=== PATIENT | female | born 1965 | race Caucasian/White ===

== ENCOUNTER 2017-01-24 08:40 | Day surgery (SDC) | payer BC ==
[~2017-01-24] VITALS: Ht 152.4 cm; Wt 50.0 kg
[~2017-01-24 08:40] MED LIST: BUPR150T47 PO; CITA40TA12 PO; COPP1TAB PO; CYAN3INJ IM; CYAN500T PO; DPH/ PO; ERGO1CAP35 PO; FRCT/ PO; LORA-741 PO; MAGN400T24 PO; OMEG10007 PO; POTA20TA16 PO; Premarin Cream PV; THIA100T11 PO; TRAM-10 PO; VITB2100 PO
[2017-01-24 09:18] VITALS: BP 92/60; PULSE 74; TEMP 36.7; O2SAT 97; Ht 152.4 cm; Wt 50.0 kg
[2017-01-24 10:30] VITALS: BP 90/58; PULSE 70; TEMP 37; O2SAT 96
[2017-01-24] MEDS ORDERED: ACETAMINOPHEN 500 MG TAB PO PRN (10:30)
--- NOTE | 2017-01-24 10:32 | Discharge Instructions ---
Discharge Instructions Procedure Procedure Date: Jan 24, 2017. Reason for visit: Abn Mri Of Brain W/Opening Pressure. Discharge Discharge Date: Jan 24, 2017. Discharge Diagnosis: headaches Instructions Activity Recommendations: 1 Day-May resume regular activity, 48 Hours of decreased exertion, 1 Day with no driving/machine use Return to School/Work: no limitations Recommended Home Diet: Resume Previous Diet Provider Instructions: Lumbar Puncture performed with Fluoroscopic guidance [L45 ] level with [ 22] needle. No complications. Allergies Coded Allergies: Aspirin (Verified Allergy, Unknown, No an allergy- cannot take post- bypass surgery, 01/16/17) Penicillins (Verified Allergy, Unknown, ? REACTION, 01/16/17) Ragweed (Verified Allergy, Unknown, swelling, 01/16/17) Sulfa Antibiotics (Verified Allergy, Unknown, Unknown reaction, 01/16/17) [place] Recommendations: Call your doctor if: * Temperature above 101 degrees * Pain not relieved by pain medicine ordered * There is increased drainage or redness from any incision * You have any unanswered questions or concerns. Your Doctors Instructions noted above were prepared by provider Cezar Beal. Patient Signature Section: Patient Instructions Signature Page Chandrika Hogue Patient (or Guardian) Signature/Date: I have read and understand the instructions given to me by my caregivers. Caregiver/RN/Doctor Signature/Date: The above-named patient and/or guardian has received patient instructions on this date. + Original Patient Signature Page (only) stays with chart. Please make copy for patient.
--- NOTE | 2017-01-24 10:39 | DIAGNOSTIC IMAGING REPORT ---
LUMBAR PUNCTURE DIAGNOSTIC CLINICAL HISTORY: HEADACHE NUMBNESS AND PAIN IN HANDS AND FEET pain. Neuropathy. FLUOROSCOPY TIME: 12 seconds PROCEDURE: The procedure, risks and benefits were discussed with the patient including the risk of spinal headache, bleeding and infection. The patient agreed to the procedure and informed written consent was obtained. The procedure was performed by Dr. Beal following a timeout. The left L4-L5 interlaminar space was targeted. Skin overlying the space was prepped and draped in the usual sterile fashion and local anesthesia was achieved with 1% lidocaine. Under intermittent fluoroscopic guidance, a 20-gauge x 3 1/2 in. Sprotte needle was inserted into the thecal sac. A total of 10 cc of clear, colorless cerebral spinal fluid was obtained and spread amongst 4 vials. The patient tolerated the procedure well. There were no immediate complications. The specimens were sent to the laboratory at the request of the referring physician. Opening pressure 9 mmHg IMPRESSION: Successful fluoroscopic guided lumbar puncture with removal of 10 cc of clear, colorless cerebral spinal fluid. No immediate complications. Opening pressure 9 mmHg. The above report was generated using voice recognition software. It may contain grammatical, syntax or spelling errors. Electronically signed by: Cezar Beal M.D. 01/24/2017 10:37 AM Dictated Date/Time: 01/24/2017 10:37 AM
[2017-01-24 11:01] VITALS: BP 86/57; PULSE 69; O2SAT 96
[2017-01-24 11:01] LABS: CSF APPEARANCE CLEAR; CSF COLOR COLORLESS; CSF XANTHOCHROMIC NO XANTHOCHROMIA
[2017-01-24 11:10] LABS: CSF TOTAL PROTEIN 62.4 mg/dl (15.0-45.0)
[2017-01-24 11:27] VITALS: BP 95/63; PULSE 70; O2SAT 96
[2017-01-24 12:00] VITALS: BP 90/52; PULSE 68; O2SAT 100
[2017-01-24 12:30] VITALS: BP 92/59; PULSE 77; O2SAT 100
[2017-01-25 17:34] LABS: LYME DNA PCR CSF OR SYNOVIAL Not detected (Not Detected); LYME DNA SOURCE CSF
[2017-01-30 08:00] LABS: LYME IGG CSF NO BANDS DETECTED; LYME IGM CSF NO BANDS DETECTED
[2017-01-31 04:31] LABS: ALBUMIN 3.6 g/dL (3.5-4.9); IGG CSF 2.9 mg/dL (0.8-7.7); IGG SERUM 566 mg/dL (694-1618); MYELIN BASIC PROTEIN 663 <2.0 mcg/L (0.0-4.0)
== END 2017-01-24 12:43 | disposition home or self-care (01) ==
LOC: C.ACU 08:40
PROVIDERS: ATTEND Psychiatry & Neurology Neurology
DX: R93.0 Abnormal findings on diagnostic imaging of skull and head, not elsewhere classified (principal)

== ENCOUNTER → 2017-06-28 | Outpatient (CLI) | payer OTHER ==
[~2017-06-28] MED LIST changes: -COPP1TAB PO; -MAGN400T24 PO; +MAGN400T6 PO
== END | disposition home or self-care (01) ==
LOC: C.LABSPEC 10:54
PROVIDERS: ATTEND Ophthalmology
DX: B30.9 Viral conjunctivitis, unspecified (principal)

== ENCOUNTER 2019-06-28 12:23 | Inpatient (IN) ==
[2019-06-28] MEDS ORDERED: ONDANSETRON INJ 2 MG/ML 2 ML VIAL IV STA (12:50)
[2019-06-28] MEDS ORDERED: fentaNYL citrate 100 MCG/2 ML VIAL IV STA (12:50)
[2019-06-28] MEDS ORDERED: SODIUM CHLORIDE 0.9% 500 ML IV SCH ×2 (13:00→22:00)
--- NOTE | 2019-06-28 13:13 | XRay Report ---
XR chest 1V portable HISTORY: 53 years-old Female Dyspnea acute shortness of breath COMPARISON: Chest CT and chest radiograph 04/06/2013, CT abdomen and pelvis 02/17/2015 TECHNIQUE: Portable AP view of the chest FINDINGS: Cardiac silhouette is enlarged, unchanged. Scarring/atelectasis of the left lung base is new from [facility]. There is no pneumothorax, pleural effusion, overt pulmonary edema or lobar airspace consolid ation. Thoracolumbar sigmoidal scoliosis with multilevel degenerative changes of the spine. Surgical clips project over the abdominal right upper quadrant. IMPRESSION: 1. Cardiomegaly without overt pulmonary edema. 2. Scarring/atelectasis of the left lung base. ACT 112: Negative or not required by law. The above report was generated using voice recognition software. It may contain grammatical, syntax o r spelling errors. Electronically signed by: Navin Lafleur M.D. 06/28/2019 1:12 PM
[2019-06-28 13:21] LABS: Basophils # (auto) 0.04 K/uL (0-0.2); Basophils % (auto) 0.3 %; Eosinophils # (auto) 0.12 K/uL (0-0.5); Hematocrit (blood only) 37.4 % (37-47); Hemoglobin 11.8 g/dL (12.0-16.0); Immature Granulocytes # (auto) 0.03 K/uL (0.00-0.02); Immature Granulocytes % (auto) 0.2 %; Lymphocytes # (auto) 1.68 K/uL (1.2-3.4); Lymphocytes % (auto) 13.7 %; Mean Corpuscular Hemoglobin 30.8 pg (25-34); Mean Corpuscular Hgb Conc 31.6 g/dL (32-36); Mean Corpuscular Volume 97.7 fL (80-100); Mean Platelet Volume 12.1 fL (7.4-10.4); Monocytes # (auto) 0.95 K/uL (0.11-0.59); Monocytes % (auto) 7.8 %; Platelet Count 176 K/uL (130-400); RDW Coefficient of Variation 13.1 % (11.5-14.5); RDW Standard Deviation 47.4 fL (36.4-46.3); Red Blood Count 3.83 M/uL (4.2-5.4); White Blood Count 12.22 K/uL (4.8-10.8)
[2019-06-28 13:31] LABS: D Dimer 450 ug/L FEU (0-500); INR 1.1 (0.9-1.1); Partial Thromboplastin Time 26.7 Seconds (21.0-31.0); Prothrombin Time 11.3 Seconds (9.0-12.0)
[2019-06-28 13:39] LABS: Alanine Aminotransferase 24 U/L (12-78); Albumin Level 3.3 gm/dl (3.4-5.0); Aspartate Aminotransferase 16 U/L (15-37); BUN Creatinine Ratio 38.6 (10-20); Blood Urea Nitrogen 25 mg/dl (7-18); Calcium 8.6 mg/dl (8.5-10.1); Carbon Dioxide 24 mmol/L (21-32); Chloride 113 mmol/L (98-107); Creatinine Clr Calc Pharmacy 76.2 ml/min; Est GFR (African American) 115.3; Est GFR (Non-African American) 99.4; Glucose 96 mg/dl (70-99); Potassium 3.7 mmol/L (3.5-5.1); Sodium 140 mmol/L (136-145)
[2019-06-28 13:44] LABS: Albumin Globulin Ratio 1.1 (0.9-2); Alkaline Phosphatase 116 U/L (45-117); Bilirubin,Total 0.6 mg/dl (0.2-1); Total Protein 6.3 gm/dl (6.4-8.2); Troponin I < 0.015 ng/ml (0-0.045)
[2019-06-28] MEDS ORDERED: ONDANSETRON 4 MG TAB PO PRN (16:58)
--- NOTE | 2019-06-28 17:12 | Emergency Department Note ---
Entered by Becka Madison acting as a scribe for Chris Hebert MD History of Present Illness General Chief complaint: Chest Pain Time Seen by Provider: 06/28/19 12:39 Source: patient History of Present Illness Onset (ago): hour(s) 3 Location: chest Pain Consistency: + other (persistent ) Maximum Pain Intensity: 6 Current Pain Intensity: 5 Quality: + other (pressure; "someone is sitting on chest" ) Relieved By: + medication (Nitro; aspirin ) Associated symptoms: + headaches, + shortness of breath and + other (positive upper back pain; negative arm pain; negative leg swelling or pain); no diaphoresis Treatments prior to arrival: aspirin and other (nitro) The patient is a 53 year old female who presents to the Emergency Room with complaints of persistent chest pain that began at 0930 this morning, approximately 3 hours prior to arrival. The patient describes this pain as pressure, stating that it feels like "someone is sitting" on her chest. The patient states that she has had shortness of breath with this, stating that she woke up at 0615, 3 hours prior to her chest pain, with this. The patient states that at this time she had pain across her whole upper back. The patient reports that she took 2 Aleve and fell back asleep after this. She states that she noticed right-sided upper back pain yesterday but thought this was a muscle pain. The patient states that this morning she had an appointment with her PCP who gave her a nitro and aspirin. The patient states that her pain subsided at that time but states that this pain is now returning. She rates her current pain at a 5/10. The patient states that she has a headache currently. The patient denies sweating, arm pain, and leg swelling or pain. The patient denies any recent long trips, recent surgeries, previous blood clot, and hormone therapy. The patient states that smokes about 1/2 of a pack of cigarettes per day. The patient denies a personal history of heart problems, but states that her mother had a history of heart problems starting at age 65. Home Medications Home Medications Medication Instructions Recorded Confirmed Type tramadol 50 mg PO Q8H PRN #0 tab 03/29/13 06/28/19 History ergocalciferol (vitamin D2) 50,000 unit PO WK #0 cap 11/26/13 06/28/19 History cyanocobalamin (vitamin B-12) 1 dose IM MONTHLY #0 06/11/14 06/28/19 History diphenoxylate-atropine [Lomotil] 2 tab PO Q6H PRN #0 tab 08/02/16 06/28/19 History copper gluconate 4 mg PO BID #0 09/19/17 06/28/19 History gabapentin 200 mg PO HS #0 cap 12/08/17 06/28/19 History gabapentin [Neurontin] 100 mg PO QAM #0 12/08/17 06/28/19 History sumatriptan succinate 100 mg tablet 50 mg PO Q2H PRN 09/20/18 06/28/19 History amitriptyline 25 mg tablet 25 mg PO HS tab 11/06/18 06/28/19 History rizatriptan 10 mg tablet 10 mg PO DAILY PRN tab 11/06/18 06/28/19 History fremanezumab-vfrm 225 mg/1.5 mL 225 mg SQ MONTHLY ml 04/15/19 06/28/19 History subcutaneous syringe [place]-3 1 cap PO DAILY 06/28/19 06/28/19 History Zofran 4 mg PO Q8H PRN 06/28/19 06/28/19 History alprazolam 0.25 mg PO DAILY PRN 06/28/19 06/28/19 History aspirin [Aspirin Low Dose] 81 mg PO QAM 06/28/19 06/28/19 History bupropion HCl 150 mg PO QAM 06/28/19 06/28/19 History xqesfmvpik-ukrchzfkelcca-uqrt 1 tab PO Q6H PRN 06/28/19 06/28/19 History calcium carbonate [[place]-500] 1,000 mg PO DAILY 06/28/19 06/28/19 History duloxetine 30 mg PO QAM 06/28/19 06/28/19 History Allergies Allergy/AdvReac Type Severity Reaction Status Date / Time Penicillins Allergy Unknown ? REACTION Verified 06/28/19 13:41 Sulfa (Sulfonamide Allergy Unknown Unknown Verified 06/28/19 13:41 Antibiotics) reaction aspirin AdvReac Mild No an Verified 06/28/19 13:41 allergy- cannot take post-bypass surgery ragweed pollen AdvReac Mild swelling Verified 06/28/19 13:41 Past Med/Surg History Medical History Anemia (Chronic) Copper deficiency (Chronic) Malabsorption (Chronic) Migraine headache (Chronic) Zinc poisoning (Resolved) Surgical History History of bowel diversion surgery (Chronic) History of cholecystectomy (Chronic) History of gastric bypass (Chronic) Social History Preferred Language: Italian Communication Ability: Effective Content Development Manager Required: No Beliefs That Will Affect Care: None marital status: Current Living Situation: Spouse Other Information That Helps Us Care for You: No Feels Safe at Home: Yes Safety Concerns: Feels Safe At This Time Smoking Status: Current every day smoker Tobacco Type: cigarettes ; Do You Dip or Chew Tobacco: No ; Second Hand Exposure: Yes ; Tobacco Cessation Education Requested by Patient: No Hx Alcohol Use: Yes Alcohol type: hard liquor Hx Substance Use: No Review of Systems See HPI for pertinent positives & negatives. and A total of 10 systems reviewed and were otherwise negative Physical Exam Vital Signs Vital Signs - 24 hr 06/28/19 12:34 06/28/19 12:38 06/28/19 12:44 Temperature 36.9 C Temperature Source Oral Pulse Rate 101 H 105 H Pulse Rate from SpO2 Sensor 103 H Respiratory Rate 20 23 Respiratory Effort / Characteristics Non-Labored Respiratory Depth Normal Blood Pressure 99/60 L 93/67 L Blood Pressure Mean 73 77 Pulse Oximetry 95 95 96 Oxygen Delivery Method Room Air Room Air Room Air Sepsis Recent Fever Within 48 Hours No Sepsis New/Unexplained Change in Mental Status No Sepsis Action Taken by Nursing No Action Required 06/28/19 13:00 06/28/19 13:02 06/28/19 13:30 Temperature Temperature Source Pulse Rate 93 H 93 H 95 H Pulse Rate from SpO2 Sensor 93 H 93 H 95 H Respiratory Rate 13 16 15 Respiratory Effort / Characteristics Respiratory Depth Blood Pressure 93/66 L 100/65 93/61 L Blood Pressure Mean 69 74 66 Pulse Oximetry 95 95 95 Oxygen Delivery Method Room Air Room Air Sepsis Recent Fever Within 48 Hours Sepsis New/Unexplained Change in Mental Status Sepsis Action Taken by Nursing 06/28/19 14:00 06/28/19 14:30 Temperature Temperature Source Pulse Rate 92 H 92 H Pulse Rate from SpO2 Sensor 92 H 92 H Respiratory Rate 18 17 Respiratory Effort / Characteristics Respiratory Depth Blood Pressure 90/57 L 93/61 L Blood Pressure Mean 75 69 Pulse Oximetry 95 96 Oxygen Delivery Method Room Air Sepsis Recent Fever Within 48 Hours Sepsis New/Unexplained Change in Mental Status Sepsis Action Taken by Nursing Constitutional: Vital signs reviewed. Eyes: Pupils are equal round reactive to light. Conjunctiva are noninjected. ENT: Pharynx is clear without erythema or exudate. Mucous membranes are moist. Neck supple without meningeal signs. Respiratory: Clear to auscultation bilaterally. Breath sounds are equal bilaterally. Cardiovascular: Regular rate and rhythm. No rubs or gallops. GI: Soft, nondistended and nontender. Bowel sounds are present. Musculoskeletal: Some reproducible chest wall tenderness with palpation. No peripheral edema. No lower extremity tenderness. Integumentary: No cyanosis. Neurological: The patient is awake and alert. No focal deficits. Psychiatric: Normal affect. Course Course 1242: Past medical records reviewed. The patient was evaluated in room C5. A complete history and physical exam was performed. 1313: Upon reevaluation, the patient states that her chest pain is better after receiving Fentanyl. 1408: I checked on the patient who states that her chest pressure is now gone. I recommended that she stay in the hospital. The patient states that she is scheduled for an outpatient stress test next week. 1415: I discussed the case with Ana Cristina SALMERON who accepts the patient for further evaluation under Dr. Culp Hospitalist service. Administered Medications Discontinued Medications Fentanyl Citrate (Fentanyl Citrate) 50 mcg IV NOW STA Stop: 06/28/19 12:51 Last Admin: 06/28/19 12:59 Dose: 50 mcg Documented by: [id number] Sodium Chloride (Nss) 500 mls @ 999 mls/hr IV .Q31M ALEKS Stop: 06/28/19 13:30 Last Infusion: 06/28/19 13:31 Dose: 0 mls/hr Documented by: [id number] Admin: 06/28/19 12:59 Dose: 999 mls/hr Documented by: [id number] Ondansetron HCl (Zofran) 4 mg IV NOW STA Stop: 06/28/19 12:51 Last Admin: 06/28/19 12:59 Dose: 4 mg Documented by: [id number] Medical Decision Making Differential Diagnosis Differential diagnoses include unstable angina, OH, PE, pleurisy, muscle strain, anxiety, and others were considered. Medical Records Attestation: I reviewed the patient's medical records. I did perform a limited focused review of portions of the patient's old chart on the electronic medical record. The patient has had no recent pertinent visits to this hospital. Home Medications Current Medication List: was personally reviewed by me Laboratory Data Attestation: I reviewed the patient's lab results. Result diagrams: 06/28/19 13:00 06/28/19 13:00 Lab Results 06/28/19 06/28/19 06/28/19 Range/Units 13:00 13:00 13:00 WBC 12.22 H (4.8-10.8) K/uL RBC 3.83 L (4.2-5.4) M/uL Hgb 11.8 L (12.0-16.0) g/dL Hct 37.4 (37-47) % MCV 97.7 (80-100) fL MCH 30.8 (25-34) pg MCHC 31.6 L (32-36) g/dL RDW Std Deviation 47.4 H (36.4-46.3) fL RDW Coeff of Mike 13.1 (11.5-14.5) % Plt Count 176 (130-400) K/uL MPV 12.1 H (7.4-10.4) fL Immature Gran % (Auto) 0.2 % Neut % (Auto) 77.0 % Lymph % (Auto) 13.7 % [place] % (Auto) 7.8 % Eos % (Auto) 1.0 % Baso % (Auto) 0.3 % Immature Gran # (Auto) 0.03 H (0.00-0.02) K/uL Neut # (Auto) 9.40 H (1.4-6.5) K/uL Lymph # (Auto) 1.68 (1.2-3.4) K/uL [place] # (Auto) 0.95 H (0.11-0.59) K/uL Eos # (Auto) 0.12 (0-0.5) K/uL Baso # (Auto) 0.04 (0-0.2) K/uL PT Cancelled INR Cancelled APTT Cancelled PTT Ratio Cancelled D-Dimer Cancelled Sodium 140 (136-145) mmol/L Potassium 3.7 (3.5-5.1) mmol/L Chloride 113 H (98-107) mmol/L Carbon Dioxide 24 (21-32) mmol/L Anion Gap 3.0 (3-11) BUN 25 H (7-18) mg/dl Creatinine 0.66 (0.6-1.2) mg/dl Est Cr Clr Drug Dosing 76.2 ml/min Est GFR ( Amer) 115.3 Est GFR (Non-Af Amer) 99.4 BUN/Creatinine Ratio 38.6 H (10-20) Glucose 96 (70-99) mg/dl Calcium 8.6 (8.5-10.1) mg/dl Total Bilirubin 0.6 (0.2-1) mg/dl AST 16 (15-37) U/L ALT 24 (12-78) U/L Alkaline Phosphatase 116 (45-117) U/L Troponin I < 0.015 (0-0.045) ng/ml Total Protein 6.3 L (6.4-8.2) gm/dl Albumin 3.3 L (3.4-5.0) gm/dl Globulin 3.0 (2.5-4.0) gm/dl Albumin/Globulin Ratio 1.1 (0.9-2) 06/28/19 Range/Units 13:00 WBC (4.8-10.8) K/uL RBC (4.2-5.4) M/uL Hgb (12.0-16.0) g/dL Hct (37-47) % MCV (80-100) fL MCH (25-34) pg MCHC (32-36) g/dL RDW Std Deviation (36.4-46.3) fL RDW Coeff of Mike (11.5-14.5) % Plt Count (130-400) K/uL MPV (7.4-10.4) fL Immature Gran % (Auto) % Neut % (Auto) % Lymph % (Auto) % [place] % (Auto) % Eos % (Auto) % Baso % (Auto) % Immature Gran # (Auto) (0.00-0.02) K/uL Neut # (Auto) (1.4-6.5) K/uL Lymph # (Auto) (1.2-3.4) K/uL [place] # (Auto) (0.11-0.59) K/uL Eos # (Auto) (0-0.5) K/uL Baso # (Auto) (0-0.2) K/uL PT 11.3 INR 1.1 APTT 26.7 PTT Ratio 1.0 D-Dimer 450 Sodium (136-145) mmol/L Potassium (3.5-5.1) mmol/L Chloride (98-107) mmol/L Carbon Dioxide (21-32) mmol/L Anion Gap (3-11) BUN (7-18) mg/dl Creatinine (0.6-1.2) mg/dl Est Cr Clr Drug Dosing ml/min Est GFR ( Amer) Est GFR (Non-Af Amer) BUN/Creatinine Ratio (10-20) Glucose (70-99) mg/dl Calcium (8.5-10.1) mg/dl Total Bilirubin (0.2-1) mg/dl AST (15-37) U/L ALT (12-78) U/L Alkaline Phosphatase (45-117) U/L Troponin I (0-0.045) ng/ml Total Protein (6.4-8.2) gm/dl Albumin (3.4-5.0) gm/dl Globulin (2.5-4.0) gm/dl Albumin/Globulin Ratio (0.9-2) Imaging Data Radiologist's Impression: Radiology results as stated below per my review and the radiologist's interpretation: XR chest 1V portable HISTORY: 53 years-old Female Dyspnea acute shortness of breath COMPARISON: Chest CT and chest radiograph 04/06/2013, CT abdomen and pelvis 02/17/2015 TECHNIQUE: Portable AP view of the chest FINDINGS: Cardiac silhouette is enlarged, unchanged. Scarring/atelectasis of the left lung base is new from comparison. There is no pneumothorax, pleural effusion, overt pulmonary edema or lobar airspace consolidation. Thoracolumbar sigmoidal scoliosis with multilevel degenerative changes of the spine. Surgical clips project over the abdominal right upper quadrant. IMPRESSION: 1. Cardiomegaly without overt pulmonary edema. 2. Scarring/atelectasis of the left lung base. ACT 112: Negative or not required by law. The above report was generated using voice recognition software. It may contain grammatical, syntax or spelling errors. Electronically signed by: Navin Lafleur M.D. 06/28/2019 1:12 PM ECG Data Attestation: I personally reviewed and interpreted this ECG as follows: Indication: + chest pain Rate (beats per minute): 96 Rhythm: + normal sinus ECG ST segments: + ST elevation (slight concave in V2) ECG Findings: + Other (no reciprocal changes; low voltage); no PVCs Additional Comments: Repeat ECG: Normal sinus rhythm with a rate of 99. Persistent slight ST elevation concave in V2. No reciprocal changes. No ST depression. No PVCs. Low voltage QRS. Blood Pressure Blood Pressure Findings: Normal blood pressure MDM Narrative I did evaluate the patient as noted above. The patient is presenting with chest pain. She states that she feels like someone is sitting on her chest. She did receive aspirin and nitroglycerin prior to arrival and states that it improved significantly but now it is returning. She is slightly hypotensive here. IV access was established. The patient was placed on a continuous engine monitor. Cardiac monitoring: Indication: Chest pain and abnormal EKG Rate and rhythm: Normal sinus rhythm and sinus tachycardia with a rate in the 90s to 110. No dysrhythmias. I did order and personally review the patient's 12-lead EKG as described above. Her twelve-lead EKG demonstrates slight ST elevation in lead V2 only and there are no reciprocal changes. I did treat the patient with normal saline IV. She was also given fentanyl and Zofran IV. I did repeat another twelve-lead EKG which showed persistent ST elevation in the single lead without any other changes. On reassessment the patient states that she is no longer having any chest discomfort. I did order and personally reviewed the images of the patient's chest x-ray as described above. Her chest x-ray is unremarkable other than some cardiomegaly.. I did order and review the patient's blood work as noted in the electronic medical record. Her white count is slightly elevated. She is mildly anemic. Electrolytes are unremarkable. Troponin is negative. D- dimer is also negative. I did reassess the patient. I did discuss the test results with her. I did recommend that she be hospitalized for further evaluation and repeat cardiac biomarkers. She does state that she has a nuclear stress test scheduled for next week. I did discuss the case with the hospitalist and major case detective. Impression & Plan Acute chest pain, Anemia, Abnormal ECG Discharge Plan Visit Data *Final* Discharge Date/Time: 06/28/19 15:58 Chief Complaint: Chest Pain ED Provider: Chris Hebert Discharge Problem: Acute chest pain, Anemia, Abnormal ECG Patient Disposition: Admitted As Inpatient Discharge Instructions Interventions: ED Discharge Assessment Last Done: 06/28/19 15:58 Discharge Problem: Anemia Qualifiers: Anemia type: unspecified type Qualified Code(s): D64.9 - Anemia, unspecified The scribe's documentation has been prepared under my direction and personally reviewed by me in its entirety. I confirm that the note above accurately reflects all work, treatment, procedures, and medical decision making performed by me.
[2019-06-28] MEDS: OXYCODONE HCL IR 5 MG TAB (IMMEDIATE RELEASE) PO PRN (17:47)
--- NOTE | 2019-06-28 17:59 | History & Physical Report ---
Date of Service June 28, 2019 Assessment & Plan (1) Chest pain: Was sent from PCP office for chest pain Atypical in presentation since pain is reproducible and pleuritic Need to r/o ACS due to pt risks factor EKG showed non specific ST changes in 1 lead received aspirin 324mg and Nitro prior arrival in the ER Initial troponin negative on admission Will follow troponin Will continue aspirin cardiology consult Schedule to get a nuclear stress on Will make NPO after midnight ECHO done on 05/14 The examination is adequate to evaluate the referral indication. The qualitative LV ejection fraction is 55-59% (normal). Focal thinning of the mid inferosetum with hypokinesis of the segment. The regional left ventricular wall motion is otherwise normal. Mild mitral regurgitation is present. There is small right to left shunt through the patent foramen ovale at rest by saline contrast injection. There is small right to left shunt through the patent foramen ovale with valsalva by saline contrast injection. There is an atrial septal aneurysm Tobacco abuse Counseling on smoking cessation Pt asking for nicotine patch to help her Migraine Will hold sumatriptan and barbiturate Stable Anxiety Continue Xanax prn continue cymbalta and buproprion Chronic pain symdrome Continue Tramadol and gabapentin DVT px on heparin subq CODE status DNR History of Present Illness Chief Complaint: Chest pain Primary Care Provider: Evelyn Forbes MD 53 years old female with past medical history of copper deficiency, chronic pain syndrome, iron deficiency anemia, vitamin B 12 deficiency, migraine, presented to the ER with chief complaint of chest pain. Patient said last night she developed pain in the right shoulder area. She said she used a warm compress but this morning when she woke up she developed pain in both shoulder area associated with mid chest pain. She said the chest pain worsening with deep breathing and associated with palpitation. She said that when she woke up this morning she had a hard time to breathe if and she felt a pressure in her chest like someone sat on her chest. She said that she felt a pounding in her chest. She said that she has been having abdominal discomfort with left-sided abdominal Calico type pain that comes and goes. She saw her PCP this morning and was given sublingual nitro and aspirin and was sent to the ER by EMS for eval. Patient said she saw cardiology few weeks ago for abnormal echo she is scheduled for nuclear stress next . She said her pain is worse with deep breathing and when pressure applies into the chest currently denies any chest pain, palpitation, dizziness, and shortness of breath. Allergies Allergy/AdvReac Type Severity Reaction Status Date / Time Penicillins Allergy Unknown ? REACTION Verified 06/28/19 13:41 Sulfa (Sulfonamide Allergy Unknown Unknown Verified 06/28/19 13:41 Antibiotics) reaction aspirin AdvReac Mild No an Verified 06/28/19 13:41 allergy- cannot take post-bypass surgery ragweed pollen AdvReac Mild swelling Verified 06/28/19 13:41 Home Medications Home Medications Medication Instructions Recorded Confirmed Type tramadol 50 mg PO Q8H PRN #0 tab 03/29/13 06/28/19 History ergocalciferol (vitamin D2) 50,000 unit PO WK #0 cap 11/26/13 06/28/19 History cyanocobalamin (vitamin B-12) 1 dose IM MONTHLY #0 06/11/14 06/28/19 History diphenoxylate-atropine [Lomotil] 2 tab PO Q6H PRN #0 tab 08/02/16 06/28/19 History copper gluconate 4 mg PO BID #0 09/19/17 06/28/19 History gabapentin 200 mg PO HS #0 cap 12/08/17 06/28/19 History gabapentin [Neurontin] 100 mg PO QAM #0 12/08/17 06/28/19 History sumatriptan succinate 100 mg tablet 50 mg PO Q2H PRN 09/20/18 06/28/19 History amitriptyline 25 mg tablet 25 mg PO HS tab 11/06/18 06/28/19 History rizatriptan 10 mg tablet 10 mg PO DAILY PRN tab 11/06/18 06/28/19 History fremanezumab-vfrm 225 mg/1.5 mL 225 mg SQ MONTHLY ml 04/15/19 06/28/19 History subcutaneous syringe [place]-3 1 cap PO DAILY 06/28/19 06/28/19 History Zofran 4 mg PO Q8H PRN 06/28/19 06/28/19 History alprazolam 0.25 mg PO DAILY PRN 06/28/19 06/28/19 History aspirin [Aspirin Low Dose] 81 mg PO QAM 06/28/19 06/28/19 History bupropion HCl 150 mg PO QAM 06/28/19 06/28/19 History wpijbouuhg-gggujptslbfjr-idzh 1 tab PO Q6H PRN 06/28/19 06/28/19 History calcium carbonate [Oysco-500] 1,000 mg PO DAILY 06/28/19 06/28/19 History duloxetine 30 mg PO QAM 06/28/19 06/28/19 History Past Med/Surg History Medical History Anemia (Chronic) Copper deficiency (Chronic) Malabsorption (Chronic) Migraine headache (Chronic) Zinc poisoning (Resolved) Surgical History History of bowel diversion surgery (Chronic) History of cholecystectomy (Chronic) History of gastric bypass (Chronic) Social History Preferred Language: Czech Communication Ability: Effective Autotransfusionist Required: No Beliefs That Will Affect Care: None marital status: Current Living Situation: Spouse Other Information That Helps Us Care for You: No Feels Safe at Home: Yes Safety Concerns: Feels Safe At This Time Smoking Status: Current every day smoker Tobacco Type: cigarettes ; Do You Dip or Chew Tobacco: No ; Second Hand Exposure: Yes ; Tobacco Cessation Education Requested by Patient: No Hx Alcohol Use: Yes Alcohol type: hard liquor Hx Substance Use: No Review of Systems Review of Systems: All systems reviewed & are unremarkable except as noted in HPI & below Physical Exam Physical Exam: General- No acute distress Head- atraumatic Eyes- PERRL, EOMI, ENT- oropharynx clear Neck- supple, no JVD Lungs- clear to auscultation Heart- regular rhythm; no murmur Abdomen- normal bowel sounds, soft, nontender Extremities- no calf tenderness Neuro- alert, oriented x 3; PERRL, EOMI; no facial palsy; no dysarthria Skin- warm & dry Results & Data Vital Signs (Past 12 Hours) Vital Signs Temp Pulse Pulse Resp BP BP Pulse Ox 06/28/19 16:36 37.0 C 101 H 20 98/65 L 94 06/28/19 15:58 94 H 20 101/59 L 98 06/28/19 14:30 92 H 17 93/61 L 96 06/28/19 14:00 92 H 18 90/57 L 95 06/28/19 13:30 95 H 15 93/61 L 95 06/28/19 13:02 93 H 16 100/65 95 06/28/19 13:00 93 H 13 93/66 L 95 06/28/19 12:44 105 H 23 93/67 L 96 06/28/19 12:38 95 06/28/19 12:34 36.9 C 101 H 20 99/60 L 95 Diagnostic Findings XR chest 1V portable HISTORY: 53 years-old Female Dyspnea acute shortness of breath COMPARISON: Chest CT and chest radiograph 04/06/2013, CT abdomen and pelvis 02/17/2015 TECHNIQUE: Portable AP view of the chest FINDINGS: Cardiac silhouette is enlarged, unchanged. Scarring/atelectasis of the left lung base is new from comparison. There is no pneumothorax, pleural effusion, overt pulmonary edema or lobar airspace consolidation. Thoracolumbar sigmoidal scoliosis with multilevel degenerative changes of the spine. Surgical clips project over the abdominal right upper quadrant. IMPRESSION: 1. Cardiomegaly without overt pulmonary edema. 2. Scarring/atelectasis of the left lung base. ACT 112: Negative or not required by law. The above report was generated using voice recognition software. It may contain grammatical, syntax or spelling errors. Electronically signed by: Navin Lafleur M.D. 06/28/2019 1:12 PM Dictated: 06/28/19 131 Transcribed: 06/28/191309
[2019-06-28] MEDS ORDERED: COPPER GLUCONATE PO SCH (21:00)
[2019-06-28] MEDS: GABAPENTIN 100 MG CAP PO SCH (21:07)
[2019-06-28] MEDS: AMITRIPTYLINE HCL 25 MG TAB PO SCH (21:08)
[2019-06-28] MEDS: TRAMADOL HCL 50 MG TABLET PO PRN (21:08)
[2019-06-28 21:18] LABS: Appearance Urine Clear (Clear); Bilirubin Urine Negative (Negative); Blood Urine Negative (Negative); Color Urine Dark Yellow; Glucose Urine UA Negative (Negative); Ketones Urine Negative (Negative); Leukocyte Esterase Urine Negative (Negative); Nitrite Urine Negative (Negative); Protein Urine Negative (Negative); Specific Gravity Urine 1.021 (1.000-1.030); Urobilinogen Urine Negative (Negative); pH Urine 5.5 (4.5-7.5)
[2019-06-28] MEDS: NICOTINE 14 MG/24 HR PATCH TD SCH (21:36)
[2019-06-28] MEDS: HEPARIN SOD 5,000 UNIT/0.5 ML VIAL SQ SCH (22:34)
[2019-06-29] MEDS: OXYCODONE HCL IR 5 MG TAB (IMMEDIATE RELEASE) PO PRN ×4 (00:06→22:47)
[2019-06-29] MEDS: HEPARIN SOD 5,000 UNIT/0.5 ML VIAL SQ SCH ×3 (05:51→21:47)
[2019-06-29 06:07] LABS: Hematocrit (blood only) 31.6 % (37-47); Hemoglobin 10.2 g/dL (12.0-16.0); Mean Corpuscular Hemoglobin 30.9 pg (25-34); Mean Corpuscular Hgb Conc 32.3 g/dL (32-36); Mean Corpuscular Volume 95.8 fL (80-100); Mean Platelet Volume 12.5 fL (7.4-10.4); Platelet Count 160 K/uL (130-400); RDW Coefficient of Variation 13.4 % (11.5-14.5); RDW Standard Deviation 46.9 fL (36.4-46.3); White Blood Count 7.52 K/uL (4.8-10.8)
[2019-06-29 06:26] LABS: BUN Creatinine Ratio 31.3 (10-20); Calcium 8.3 mg/dl (8.5-10.1); Creatinine Clr Calc Pharmacy 70.2 ml/min; Est GFR (African American) 115.8; Est GFR (Non-African American) 99.9; Potassium 3.7 mmol/L (3.5-5.1)
--- NOTE | 2019-06-29 07:46 | Electrocardiogram Report ---
Test Reason : Blood Pressure : / mmHG Vent. Rate : 096 BPM Atrial Rate : 096 BPM P-R Int : 146 ms QRS Dur : 084 ms QT Int : 356 ms P-R-T Axes : 047 -12 036 degrees QTc Int : 449 ms Normal sinus rhythm Low voltage QRS Poor R wave progression, consider anterior [place] vs. lead placement vs. LVH Abnormal ECG When compared with ECG of 29-MAR-2013 12:13, No significant change was found Confirmed by Vic Cuba ([id number]) on 06/29/2019 7:46:17 AM Referred By: ED Confirmed By:Deven Cuba
--- NOTE | 2019-06-29 07:47 | Electrocardiogram Report ---
Test Reason : Blood Pressure : / mmHG Vent. Rate : 099 BPM Atrial Rate : 099 BPM P-R Int : 148 ms QRS Dur : 082 ms QT Int : 358 ms P-R-T Axes : 047 -10 029 degrees QTc Int : 459 ms Normal sinus rhythm Low voltage QRS Poor R wave progression, consider anterior PR vs. lead placement vs. LVH Abnormal ECG When compared with ECG of 28-JUN-2019 12:29, (unconfirmed) No significant change was found Confirmed by Vic Cuba ([id number]) on 06/29/2019 7:47:06 AM Referred By: REFERRED SELF Confirmed By:Deven Cuba
[2019-06-29] MEDS ORDERED: NICOTINE 14 MG/24 HR PATCH TD SCH (09:00)
[2019-06-29] MEDS: DULOXETINE HCL 30 MG CAP PO SCH (09:48)
[2019-06-29] MEDS: CALCIUM CARBONATE 1250MG TAB PO SCH (09:48)
[2019-06-29] MEDS: OMEGA-3 (PURIFIED FISH OIL) 1 GM CAP PO SCH (09:48)
[2019-06-29] MEDS: BuPROPion XL 150 MG TABCR PO SCH (09:48)
[2019-06-29] MEDS: ASPIRIN 81 MG ECTAB PO SCH (09:48)
[2019-06-29] MEDS: NICOTINE 14 MG/24 HR PATCH TD SCH (09:49)
[2019-06-29] MEDS: GABAPENTIN 100 MG CAP PO SCH ×2 (09:49→21:46)
--- NOTE | 2019-06-29 13:00 | Electrocardiogram Report ---
Test Reason : Blood Pressure : / mmHG Vent. Rate : 096 BPM Atrial Rate : 096 BPM P-R Int : 148 ms QRS Dur : 082 ms QT Int : 352 ms P-R-T Axes : 063 019 055 degrees QTc Int : 444 ms Normal sinus rhythm Low voltage QRS Borderline ECG When compared with ECG of 28-JUN-2019 13:04, No significant change was found Confirmed by Tj Medina ([id number]) on 06/29/2019 1:00:10 PM Referred By: REFERRED SELF Confirmed By:Tj Medina
[2019-06-29] MEDS ORDERED: NAPROXEN 250 MG TAB PO STA (13:11)
--- NOTE | 2019-06-29 13:34 | Cardiology Consultation ---
Date of Consultation June 29, 2019 Assessment & Plan (1) Chest pain: Recent chest discomfort, her symptoms that she described yesterday are certainly concerning for angina. EKG reveals chronic poor R wave progression without acute repolarization abnormalities and her troponin I has been negative on a serial basis x3 thus far. Currently she is asymptomatic. An echocardiogram performed in April, as an outpatient as part of a work-up for ongoing neurologic symptoms revealed questionable age-indeterminate septal infarct. At this time, I recommend repeating a transthoracic echocardiogram with the administration of echo contrast for better visualization of the area of concern. I anticipate need for pharmacologic stress testing either during this hospital stay or with keeping with her outpatient appointment. Further advice will be forthcoming. As noted, that per my recommendation aspirin has been added to her medication regimen last month due to concerns of possible TIA episodes in the setting of PFO. She had previously not been treated with aspirin due to her history of gastric bypass surgery, and of course she is at risk for potential GI side effects related to aspirin. At this time I will order her diet. History of Present Illness Attending Physician: Lidia Michaels, History of Present Illness Chandrika Hogue is a 53-year-old female seen in cardiology consultation per the request of Dr. Ricks for the evaluation of chest pressure. The patient notes that 2 days ago she had experienced right shoulder discomfort. Yesterday she had been to her PCP and complained of back pain above her shoulder blades with associated shortness of breath, abdominal pain, and that developed chest pressure. She was referred to the emergency room for further evaluation. EKG tracing performed 06/28/2019 at 1229 revealed normal sinus rhythm at 96 bpm, with poor R wave progression in leads V2 to V4. This was relatively unchanged compared to a prior tracing dating back to 2012. An additional follow-up EKG on 06/28/2019 and again this morning were again relatively unchanged. Troponin has been negative x3 thus far. During my assessment of the patient, she was completely free of anginal symptoms. The patient had recently been seen by the undersigned as an outpatient on 06/06/2019. At that time she was free of any chest pain symptoms, but had a recent resting transthoracic echocardiogram performed per the request of her neurologist for further evaluation of intermittent right upper extremity numbness. The echo was notable for suspected focal inferoseptal wall motion abnormality and a septal infarct cannot be excluded. Injection of agitated saline contrast also revealed suggestion of a PFO. I had reviewed the images of her outpatient echocardiogram which have been performed at [facility] on 06/13/2019 and per my interpretation, there was a trace interatrial shunt noted, and a inferoseptal wall motion abnormality cannot be excluded, but was also perhaps not as well visualized as it could be is no echocardiographic contrast had been administered. A nuclear stress test was tentatively planned to be performed as an outpatient this week on 07/04/2019. 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 Allergies Allergy/AdvReac Type Severity Reaction Status Date / Time Penicillins Allergy Unknown ? REACTION Verified 06/28/19 13:41 Sulfa (Sulfonamide Allergy Unknown Unknown Verified 06/28/19 13:41 Antibiotics) reaction aspirin AdvReac Mild No an Verified 06/28/19 13:41 allergy- cannot take post-bypass surgery ragweed pollen AdvReac Mild swelling Verified 06/28/19 13:41 Home Medications Home Medications Medication Instructions Recorded Confirmed Type tramadol 50 mg PO Q8H PRN #0 tab 03/29/13 06/28/19 History ergocalciferol (vitamin D2) 50,000 unit PO WK #0 cap 11/26/13 06/28/19 History cyanocobalamin (vitamin B-12) 1 dose IM MONTHLY #0 06/11/14 06/28/19 History diphenoxylate-atropine [Lomotil] 2 tab PO Q6H PRN #0 tab 08/02/16 06/28/19 History copper gluconate 4 mg PO BID #0 09/19/17 06/28/19 History gabapentin 200 mg PO HS #0 cap 12/08/17 06/28/19 History gabapentin [Neurontin] 100 mg PO QAM #0 12/08/17 06/28/19 History sumatriptan succinate 100 mg tablet 50 mg PO Q2H PRN 09/20/18 06/28/19 History amitriptyline 25 mg tablet 25 mg PO HS tab 11/06/18 06/28/19 History rizatriptan 10 mg tablet 10 mg PO DAILY PRN tab 11/06/18 06/28/19 History fremanezumab-vfrm 225 mg/1.5 mL 225 mg SQ MONTHLY ml 04/15/19 06/28/19 History subcutaneous syringe [place]-3 1 cap PO DAILY 06/28/19 06/28/19 History Zofran 4 mg PO Q8H PRN 06/28/19 06/28/19 History alprazolam 0.25 mg PO DAILY PRN 06/28/19 06/28/19 History aspirin [Aspirin Low Dose] 81 mg PO QAM 06/28/19 06/28/19 History bupropion HCl 150 mg PO QAM 06/28/19 06/28/19 History nyfgwlurxp-nhtiemjtzbqgf-spof 1 tab PO Q6H PRN 06/28/19 06/28/19 History calcium carbonate [[place]-500] 1,000 mg PO DAILY 06/28/19 06/28/19 History duloxetine 30 mg PO QAM 06/28/19 06/28/19 History Patient History Medical History Anemia (Chronic) Copper deficiency (Chronic) Malabsorption (Chronic) Migraine headache (Chronic) Zinc poisoning (Resolved) Surgical History History of bowel diversion surgery (Chronic) History of cholecystectomy (Chronic) History of gastric bypass (Chronic) Social History Preferred Language: Romanian Communication Ability: Effective Byproducts Supervisor Required: No Beliefs That Will Affect Care: None marital status: Current Living Situation: Spouse Other Information That Helps Us Care for You: No Feels Safe at Home: Yes Safety Concerns: Feels Safe At This Time Smoking Status: Current every day smoker Tobacco Type: cigarettes ; Do You Dip or Chew Tobacco: No ; Second Hand Exposure: Yes ; Tobacco Cessation Education Requested by Patient: No Hx Alcohol Use: Yes Alcohol type: hard liquor Hx Substance Use: No Physical Exam Physical Exam: Temp Pulse Resp BP Pulse Ox 36.5 C 93 H 18 124/63 98 06/29/19 12:06 06/29/19 12:06 06/29/19 12:06 06/29/19 12:06 06/29/19 12:06 Constitutional: WD/WN, vitals as above Respiratory: normal respiratory effort, lungs clear to auscultation Cardiovascular: RRR, no murmur, no edema Gastrointestinal (Abdomen): normal bowel sounds, soft, nontender, no hepatosplenomegaly Skin: no rashes, warm and dry Neurologic: Conversant, no focal deficits Results & Data Vital Signs (Past 12 Hours) Vital Signs Temp Pulse Resp BP Pulse Ox 06/29/19 12:06 36.5 C 93 H 18 124/63 98 06/29/19 08:00 36.9 C 70 20 115/69 94 06/29/19 03:36 36.8 C 93 H 18 95/64 L 92
--- NOTE | 2019-06-29 16:51 | Hospitalist Progress Note ---
Date of Service June 29, 2019 Assessment & Plan (1) Chest pain: ACS ruled out with negative serial cardiac enzymes and noon-ischemic appearing EKGs. Pain persists with a definite MSK component. However, has an echo with some hypokinesis in Nov. Patient leaning toward oxycodone use, which she is not regularly on at home. Uses gabapentin and tramadol, mostly. Cont supportive care and planned dobutamine stress echo this admission per Cards recs. Resting echo today. (2) PFO (patent foramen ovale): per cardiology recommendations. (3) Anemia: Around baseline. Known iron deficiency anemia related to nutritional deficiency after gastric bypass. Receives outpatient Venofer. Followed by hematology. Last colonoscopy was in 2013 and was normal. (4) History of gastric bypass: (5) Chronic pain syndrome: continues on elavil, tramadol PRN and neurontin per home regimen. Cautious administration of oxy this admission with high risk for addiction. (6) Tobacco use: Advised her that smoking is bad for her health and is a high risk for CAD. Nicoderm (7) H/O migraine: stable (8) Anxiety: cont cymbalta and buproprion per home regimen. (9) DVT prophylaxis: Lovenox Full Code Dispo-plan for home when medically stable. DSE Monday-awaiting results. Lidia Michaels DO [facility] Hospitalist Subjective severe substernal chest pain to palpation. some tenderness on trapezius muscle on the left lower neck/upper shoulder. Pain when deep breathing but no shortness of breath. Initially, had some LUQ pains that have now resolved. Recently seen by Cardio as outpatient for abnormal echo revealing hypokinesis and a PFO. She has a h/o migraines and chronic pain syndrome, not on narcotics regularly. Review of Systems Review of Systems: All systems reviewed & are unremarkable except as noted in HPI & below Physical Exam Physical Exam: CONSTITUTIONAL: WNWD, vitals as above, generally well- appearing EYES: normal conjunctivae, no scleral icterus ENT: MMM RESPIRATORY: clear to auscultation bilaterally, no crackles, rales or wheezes, normal respiratory effort CARDIOVASCULAR: regular rate and rhythm, S1 and 2 heard without murmurs, gallops or rubs, no JVD, no peripheral edema CHEST: inspection of chest was normal GASTROINTESTINAL: soft, nontender, nondistended, no guarding MUSCULOSKELETAL: strength 5/5 throughout, head is normocephalic and atraumatic, chest wall exquisitely tender to palpation, L lower neck muscles and upper L thoracic paraspinals are exquisitely tender. SKIN: warm and dry NEUROLOGIC: CN 2-12 grossly intact, no sensory deficit, normal cognition, normal speech, no gross focal deficits. PSYCHIATRIC: alert cooperative and oriented to person, place and time. Results & Data Vital Signs (Past 12 Hours) Vital Signs Temp Pulse Resp BP Pulse Ox 06/29/19 15:01 36.9 C 83 18 96/62 L 92 06/29/19 12:06 36.5 C 93 H 18 124/63 98 06/29/19 08:00 36.9 C 70 20 115/69 94 Laboratory Results Short CBC 06/29/19 Range/Units 05:24 WBC 7.52 (4.8-10.8) K/uL Hgb 10.2 L (12.0-16.0) g/dL Hct 31.6 L (37-47) % Plt Count 160 (130-400) K/uL BMP 06/29/19 05:24 Sodium 142 Potassium 3.7 Chloride 115 H Carbon Dioxide 24 BUN 20 H Creatinine 0.65 Glucose 94 Calcium 8.3 L Cardiac Enzymes 06/28/19 06/28/19 Range/Units 18:56 22:58 Troponin I < 0.015 < 0.015 (0-0.045) ng/ml Urine 06/28/19 Range/Units 20:59 Urine Color Dark Yellow Urine Appearance Clear (Clear) Urine pH 5.5 (4.5-7.5) Ur Specific [place] 1.021 (1.000-1.030) Urine Protein Negative (Negative) Urine Glucose (UA) Negative (Negative) Medications Administered Current Inpatient Medications Alprazolam (Xanax) 0.25 mg PO DAILY PRN PRN Reason: Anxiety Stop: 07/28/19 16:57 Amitriptyline HCl (Elavil) 25 mg PO HS ALEKS Stop: 07/28/19 20:59 Last Admin: 06/28/19 21:08 Dose: 25 mg Documented by: Aspirin (Ecotrin Ectab) 81 mg PO QAM ALEKS Stop: 07/29/19 08:59 Last Admin: 06/29/19 09:48 Dose: 81 mg Documented by: Bupropion HCl (Wellbutrin-Xl) 150 mg PO QAM [facility] Stop: 07/29/19 08:59 Last Admin: 06/29/19 09:48 Dose: 150 mg Documented by: Calcium Carbonate (Os-[place] 500) 1,250 mg PO DAILY [facility] Stop: 07/29/19 08:59 Last Admin: 06/29/19 09:48 Dose: 1,250 mg Documented by: Duloxetine HCl (Cymbalta) 30 mg PO QAM [facility] Stop: 07/29/19 08:59 Last Admin: 06/29/19 09:48 Dose: 30 mg Documented by: Fish Oil ([place]-3 (Purified Fish Oil)) 1 gm PO DAILY [facility] Stop: 07/29/19 08:59 Last Admin: 06/29/19 09:48 Dose: 1 gm Documented by: Gabapentin (Neurontin) 200 mg PO HS [facility] Stop: 07/28/19 20:59 Last Admin: 06/28/19 21:07 Dose: 200 mg Documented by: Gabapentin (Neurontin) 100 mg PO QAM [facility] Stop: 07/29/19 08:59 Last Admin: 06/29/19 09:49 Dose: 100 mg Documented by: Heparin Sodium (Porcine) (Heparin Sodium (Porcine)) 5,000 units SQ Q8 [facility] Stop: 07/28/19 21:59 Last Admin: 06/29/19 14:01 Dose: 5,000 units Documented by: Miscellaneous (Remove Nicoderm Patch) 1 ea N/A DAILY@0859 [facility] Stop: 07/30/19 08:58 Nic[facility] ([facility] Cq) [facility] Stop: 07/28/19 20:59 Last Admin: 06/29/19 09:49 Dose: 14 mg Documented by: Ondansetron HCl (Zofran Tab) 4 mg PO Q8H PRN PRN Reason: Nausea Oxycodone HCl (Roxicodone Immediate Rel) 5 mg PO Q6H PRN PRN Reason: Severe Pain Stop: 07/12/19 16:57 Last Admin: 06/29/19 16:09 Dose: 5 mg Documented by: Tramadol HCl (Ultram) 50 mg PO Q8H PRN PRN Reason: Pain Stop: 07/28/19 16:57 Last Admin: 06/28/19 21:08 Dose: 50 mg Documented by: (1) Anemia Anemia type: unspecified type Qualified Code(s): D64.9 - Anemia, unspecified
[2019-06-29] MEDS: AMITRIPTYLINE HCL 25 MG TAB PO SCH (21:45)
[2019-06-29] MEDS: ALPRAZolam 0.25 MG TABLET PO PRN (22:47)
[2019-06-30] MEDS: HEPARIN SOD 5,000 UNIT/0.5 ML VIAL SQ SCH (05:36)
[2019-06-30] MEDS ORDERED: PROMETHAZINE HCL 25 MG TAB PO PRN (08:36)
[2019-06-30] MEDS ORDERED: ONDANSETRON INJ 2 MG/ML 2 ML VIAL IV PRN (08:36)
[2019-06-30] MEDS: GABAPENTIN 100 MG CAP PO SCH ×2 (10:51→21:01)
[2019-06-30] MEDS: OMEGA-3 (PURIFIED FISH OIL) 1 GM CAP PO SCH (10:51)
[2019-06-30] MEDS: ENOXAPARIN INJ 40 MG/0.4 ML SYR SQ SCH (10:51)
[2019-06-30] MEDS: ASPIRIN 81 MG ECTAB PO SCH (10:52)
[2019-06-30] MEDS: NICOTINE 14 MG/24 HR PATCH TD SCH (10:52)
[2019-06-30] MEDS: BuPROPion XL 150 MG TABCR PO SCH (10:52)
[2019-06-30] MEDS: DULOXETINE HCL 30 MG CAP PO SCH (10:52)
[2019-06-30] MEDS: CALCIUM CARBONATE 1250MG TAB PO SCH (10:53)
[2019-06-30] MEDS: TRAMADOL HCL 50 MG TABLET PO PRN (11:10)
[2019-06-30] MEDS: OXYCODONE HCL IR 5 MG TAB (IMMEDIATE RELEASE) PO PRN ×2 (13:56→21:05)
--- NOTE | 2019-06-30 15:08 | Cardiology Progress Note ---
Date of Service June 30, 2019 Assessment & Plan (1) Chest pain: Some characteristics of her discomfort are suggestive of angina and some are not. Complicating her assessment is her history of chronic pain syndrome, and of course she does have a history of remote gastric bypass surgery. Proceed with dobutamine stress echocardiogram as planned tomorrow with basic metabolic panel in advance of the test. Continue subcutaneous Lovenox for DVT prophylaxis. Subjective Patient in no distress. This morning she felt nauseous first thing in the morning, and a 5 beat run of nonsustained ventricular tachycardia was observed on telemetry at 7:47 AM. She received Zofran after that with improvement, she was able to tolerate some for lunch. She notes a vague left-sided chest discomfort at rest that has not progressed. Review of Systems Review of Systems: All systems reviewed & are unremarkable except as noted in HPI & below Physical Exam Physical Exam: Temp Pulse Resp BP Pulse Ox 37.4 C 79 18 115/79 94 06/30/19 11:53 06/30/19 11:53 06/30/19 11:53 06/30/19 11:53 06/30/19 11:53 Constitutional: WD/WN, vitals as above Respiratory: normal respiratory effort, lungs clear to auscultation Cardiovascular: RRR, no murmur, no edema Gastrointestinal (Abdomen): normal bowel sounds, soft, nontender, no hepatosplenomegaly Neurologic: PERRL, EOMI, accommodation nl, no face palsy, no dysarthria Results & Data Vital Signs (Past 12 Hours) Vital Signs Temp Pulse Resp BP Pulse Ox 06/30/19 11:53 37.4 C 79 18 115/79 94 06/30/19 07:49 36.6 C 83 18 108/75 92 06/30/19 03:15 36.5 C 69 17 127/89 92
--- NOTE | 2019-06-30 19:12 | Hospitalist Progress Note ---
Date of Service June 30, 2019 Assessment & Plan (1) Chest pain: ACS ruled out with negative serial cardiac enzymes and noon-ischemic appearing EKGs. Pain persists with a definite MSK component. Patient leaning toward oxycodone use, which she is not regularly on at home. Usese gabapentin and tramadol, mostly. Cont supportive care and planned dobutamine stress echo in am. (2) Anemia: Around baseline. Known iron deficiency anemia likely related to nutritional deficiency after gastric bypass. Receives outpatient Venofer. Followed by hematology. Missy colonoscopy was in 2013 and was normal. (3) History of gastric bypass: (4) Chronic pain syndrome: continues on elavil, tramadol PRN and neurontin per home regimen. Cautious administration of oxy this admission with high risk for addiction. (5) Tobacco use: Advised her that smoking is bad for her health and is a high risk for CAD. Nicoderm (6) H/O migraine: stable (7) Anxiety: cont cymbalta and buproprion per home regimen. (8) DVT prophylaxis: Lovenox Full Code Dispo-plan for home when medically stable. DSE Monday-awaiting results. Lidia Michaels DO [facility] Hospitalist Subjective reports chest pain today, not improved with naproxen or tramadol. Mostly improved with roxicodone. Very tender chest wall to palpation. Limited PO intake, which is her baseline. present at bedside. All questions answered. Review of Systems Review of Systems: All systems reviewed & are unremarkable except as noted in HPI & below Physical Exam Physical Exam: CONSTITUTIONAL: WNWD, vitals as above, generally well- appearing EYES: normal conjunctivae, no scleral icterus ENT: MMM RESPIRATORY: clear to auscultation bilaterally, no crackles, rales or wheezes, normal respiratory effort CARDIOVASCULAR: regular rate and rhythm, S1 and 2 heard without murmurs, gallops or rubs, no JVD, no peripheral edema CHEST: inspection of chest was normal GASTROINTESTINAL: soft, nontender, nondistended, no guarding MUSCULOSKELETAL: strength 5/5 throughout, head is normocephalic and atraumatic, chest wall exquisitely tender to palpation SKIN: warm and dry NEUROLOGIC: CN 2-12 grossly intact, no sensory deficit, normal cognition, normal speech, no gross focal deficits. PSYCHIATRIC: alert cooperative and oriented to person, place and time. Results & Data Vital Signs (Past 12 Hours) Vital Signs Temp Pulse Resp BP Pulse Ox 06/30/19 18:56 36.9 C 72 18 123/74 93 06/30/19 15:04 37.3 C 84 18 101/70 93 06/30/19 11:53 37.4 C 79 18 115/79 94 06/30/19 07:49 36.6 C 83 18 108/75 92 Medications Administered Current Inpatient Medications Alprazolam (Xanax) 0.25 mg PO DAILY PRN PRN Reason: Anxiety Stop: 07/28/19 16:57 Last Admin: 06/29/19 22:47 Dose: 0.25 mg Documented by: Amitriptyline HCl (Elavil) 25 mg PO [facility] Stop: 07/28/19 20:59 Last Admin: 06/29/19 21:45 Dose: 25 mg Documented by: Aspirin ([facility]rin Ectab) [facility] Stop: 07/29/19 08:59 Last Admin: 06/30/19 10:52 Dose: 81 mg Documented by: Bupropion HCl (Wellbutrin-Xl) [facility] Stop: 07/29/19 08:59 Last Admin: 06/30/19 10:52 Dose: 150 mg Documented by: Calcium Carbonate (Os-Catarino 500) 1,250 mg PO DAILY [facility] Stop: 07/29/19 08:59 Last Admin: 06/30/19 10:53 Dose: 1,250 mg Documented by: Duloxetine HCl (Cymbalta) 30 mg PO QAM [facility] Stop: 07/29/19 08:59 Last Admin: 06/30/19 10:52 Dose: 30 mg Documented by: Enoxaparin Sodium (Lovenox) 40 mg SQ QAM [facility] Stop: 07/30/19 08:59 Last Admin: 06/30/19 10:51 Dose: 40 mg Documented by: Fish Oil ([place]-3 (Purified Fish Oil)) 1 gm PO DAILY [facility] Stop: 07/29/19 08:59 Last Admin: 06/30/19 10:51 Dose: 1 gm Documented by: Gabapentin (Neurontin) 200 mg PO [facility] Stop: 07/28/19 20:59 Last Admin: 06/29/19 21:46 Dose: 200 mg Documented by: Gabapentin (Neurontin) 100 mg PO QAM [facility] Stop: 07/29/19 08:59 Last Admin: 06/30/19 10:51 Dose: 100 mg Documented by: Miscellaneous (Remove Nicoderm Patch) 1 ea N/A DAILY@0859 [facility] Stop: 07/30/19 08:58 Last Admin: 06/30/19 10:50 Dose: 1 ea Documented by: Nicotine (Nicoderm Cq) [facility] Stop: 07/28/19 20:59 Last Admin: 06/30/19 10:52 Dose: 14 mg Documented by: Ondansetron HCl (Zofran Tab) 4 mg PO Q8H PRN PRN Reason: Nausea Stop: 07/28/19 16:57 Last Admin: 06/30/19 17:54 Dose: 4 mg Documented by: Ondansetron HCl (Zofran) 4 mg IV Q8H PRN PRN Reason: n/v Stop: 07/30/19 08:44 Oxycodone HCl (Roxicodone Immediate Rel) 5 mg PO Q6H PRN PRN Reason: Severe Pain Stop: 07/12/19 16:57 Last Admin: 06/30/19 13:56 Dose: 5 mg Documented by: Promethazine HCl (Phenergan) 25 mg PO Q6H PRN PRN Reason: Nausea And Vomiting Stop: 07/30/19 08:35 Tramadol HCl (Ultram) 50 mg PO Q8H PRN PRN Reason: Pain Stop: 07/28/19 16:57 Last Admin: 06/30/19 11:10 Dose: 50 mg Documented by: (1) Anemia Anemia type: unspecified type Qualified Code(s): D64.9 - Anemia, unspecified
[2019-06-30] MEDS: AMITRIPTYLINE HCL 25 MG TAB PO SCH (21:01)
[2019-07-01 06:46] LABS: Hematocrit (blood only) 33.8 % (37-47); Hemoglobin 10.7 g/dL (12.0-16.0); Mean Corpuscular Hgb Conc 31.7 g/dL (32-36); Platelet Count 199 K/uL (130-400); RDW Coefficient of Variation 13.1 % (11.5-14.5); RDW Standard Deviation 46.6 fL (36.4-46.3); Red Blood Count 3.45 M/uL (4.2-5.4); White Blood Count 6.35 K/uL (4.8-10.8)
[2019-07-01 07:25] LABS: BUN Creatinine Ratio 23.1 (10-20); Calcium 8.6 mg/dl (8.5-10.1); Creatinine Clr Calc Pharmacy 72.5 ml/min; Potassium 3.8 mmol/L (3.5-5.1)
[2019-07-01 07:30] LABS: Ferritin 155.6 ng/ml (8-388)
[2019-07-01] MEDS ORDERED: METOPROLOL TARTRATE 1 MG/ML VIAL IV ONE (08:55)
[2019-07-01] MEDS ORDERED: DOBUTamine HCL 12.5 MG/ML 20 ML VIAL IV ONE (08:55)
[2019-07-01] MEDS ORDERED: ATROPINE SULFATE 0.1 MG/ML 10ML SYR IV ONE (08:55)
[2019-07-01] MEDS: CALCIUM CARBONATE 1250MG TAB PO SCH (09:59)
[2019-07-01] MEDS: ASPIRIN 81 MG ECTAB PO SCH (09:59)
[2019-07-01] MEDS: DULOXETINE HCL 30 MG CAP PO SCH (09:59)
[2019-07-01] MEDS: OMEGA-3 (PURIFIED FISH OIL) 1 GM CAP PO SCH (09:59)
[2019-07-01] MEDS: BuPROPion XL 150 MG TABCR PO SCH (09:59)
[2019-07-01] MEDS: NICOTINE 14 MG/24 HR PATCH TD SCH (10:00)
[2019-07-01] MEDS: GABAPENTIN 100 MG CAP PO SCH ×2 (10:00→20:41)
[2019-07-01] MEDS: ENOXAPARIN INJ 40 MG/0.4 ML SYR SQ SCH (10:16)
--- NOTE | 2019-07-01 12:48 | Cardiology Progress Note ---
Date of Service July 01, 2019 Assessment & Plan (1) Chest pain: I would consider her dobutamine stress echocardiogram equivocal with subjective symptom of severe chest "pressure" , "like something sitting on my chest" at peak stress and normal EKG and echo responses. I believe she has had a recent lipid panel as an outpt and will retrieve those lab results prior to consideration of statin therapy. Recommend cardiac catheterization for further assessment given symptoms, to hopefully be performed 07/02/19. Continue ASA. Subjective Patient seen prior to, during, and post dobutamine stress test today. Pt with vague mild chest pain at baseline prior to starting stress test. She described severe chest pain with peak pharm stress with normal EKG and echocardiographic assessment. Review of Systems Review of Systems: All systems reviewed & are unremarkable except as noted in HPI & below Physical Exam Physical Exam: Temp Pulse Resp BP Pulse Ox 36.8 C 85 19 90/64 L 93 07/01/19 10:57 07/01/19 10:57 07/01/19 10:57 07/01/19 10:57 07/01/19 10:57 Constitutional: WD/WN, vitals as above Respiratory: normal respiratory effort, lungs clear to auscultation Cardiovascular: RRR, no murmur, no edema Gastrointestinal (Abdomen): normal bowel sounds, soft, nontender, no hepatosplenomegaly Neurologic: PERRL, EOMI, accommodation nl, no face palsy, no dysarthria Results & Data Vital Signs (Past 12 Hours) Vital Signs Temp Pulse Resp BP Pulse Ox 07/01/19 10:57 36.8 C 85 19 90/64 L 93 07/01/19 07:02 36.8 C 74 18 90/59 L 91 07/01/19 03:18 36.8 C 71 18 100/68 93
--- NOTE | 2019-07-01 15:12 | Electrocardiogram Report ---
Test Reason : Blood Pressure : / mmHG Vent. Rate : 071 BPM Atrial Rate : 071 BPM P-R Int : 152 ms QRS Dur : 088 ms QT Int : 392 ms P-R-T Axes : 018 018 024 degrees QTc Int : 425 ms Normal sinus rhythm Low voltage QRS Borderline ECG When compared with ECG of 29-JUN-2019 07:09, No significant change was found Confirmed by Tj Medina ([id number]) on 07/01/2019 3:11:28 PM Referred By: REFERRED SELF Confirmed By:Tj Medina
--- NOTE | 2019-07-01 19:12 | Hospitalist Progress Note ---
Date of Service July 01, 2019 Assessment & Plan (1) Chest pain: ACS ruled out with negative serial cardiac enzymes and non-ischemic appearing EKGs. Pain persists with a definite MSK component. However, has an echo with some hypokinesis in Nov. Pain improved but still present. Cont supp ortive care and planned heart catheterization in am. (2) PFO (patent foramen ovale): per cardiology recommendations. (3) Anemia: Around baseline. Known iron deficiency anemia related to nutritional deficiency after gastric bypass. Receives outpatient Venofer. Followed by hematology. Last colonoscopy was in 2013 and was normal. (4) History of gastric bypass: (5) Chronic pain syndrome: continues on elavil, tramadol PRN and neurontin per home regimen. Cautious administration of oxy this admission with high risk for addiction. (6) Tobacco use: Advised her that smoking is bad for her health and is a high risk for CAD. Nicoderm (7) H/O migraine: stable (8) Anxiety: cont cymbalta and buproprion per home regimen. (9) DVT prophylaxis: Lovenox Full Code Dispo-plan for home when medically stable. DSE Monday-awaiting results. Lidia Michaels DO [facility] Hospitalist Subjective doing well chest pain persists tolerating PO Review of Systems Review of Systems: All systems reviewed & are unremarkable except as noted in HPI & below Physical Exam Physical Exam: CONSTITUTIONAL: WNWD, vitals as above, generally well- appearing EYES: normal conjunctivae, no scleral icterus ENT: MMM RESPIRATORY: clear to auscultation bilaterally, no crackles, rales or wheezes, normal respiratory effort CARDIOVASCULAR: regular rate and rhythm, S1 and 2 heard without murmurs, gallops or rubs, no JVD, no peripheral edema CHEST: inspection of chest was normal GASTROINTESTINAL: soft, nontender, nondistended, no guarding MUSCULOSKELETAL: strength 5/5 throughout, head is normocephalic and atraumatic, chest wall exquisitely tender to palpation SKIN: warm and dry NEUROLOGIC: CN 2-12 grossly intact, no sensory deficit, normal cognition, normal speech, no gross focal deficits. PSYCHIATRIC: alert cooperative and oriented to person, place and time. Results & Data Vital Signs (Past 12 Hours) Vital Signs Temp Pulse Resp BP Pulse Ox 07/01/19 18:43 37 C 84 20 119/79 94 07/01/19 15:27 37.2 C 77 20 111/73 94 07/01/19 10:57 36.8 C 85 19 90/64 L 93 Laboratory Results Short CBC 07/01/19 Range/Units 06:22 WBC 6.35 (4.8-10.8) K/uL Hgb 10.7 L (12.0-16.0) g/dL Hct 33.8 L (37-47) % Plt Count 199 (130-400) K/uL BMP 07/01/19 06:22 Sodium 141 Potassium 3.8 Chloride 112 H Carbon Dioxide 26 BUN 15 Creatinine 0.63 Glucose 87 Calcium 8.6 Medications Administered Current Inpatient Medications Alprazolam (Xanax) 0.25 mg PO DAILY PRN PRN Reason: Anxiety Stop: 07/28/19 16:57 Last Admin: 06/29/19 22:47 Dose: 0.25 mg Documented by: Amitriptyline HCl (Elavil) 25 mg PO HS [facility] Stop: 07/28/19 20:59 Last Admin: 06/30/19 21:01 Dose: 25 mg Documented by: Aspirin (Ecotrin Ectab) 81 mg PO QAM [facility] Stop: 07/29/19 08:59 Last Admin: 07/01/19 09:59 Dose: 81 mg Documented by: Bupropion HCl (Wellbutrin-Xl) 150 mg PO QAM [facility] Stop: 07/29/19 08:59 Last Admin: 07/01/19 09:59 Dose: 150 mg Documented by: Calcium Carbonate (Os-Catarino 500) 1,250 mg PO DAILY [facility] Stop: 07/29/19 08:59 Last Admin: 07/01/19 09:59 Dose: 1,250 mg Documented by: Duloxetine HCl (Cymbalta) 30 mg PO QAM [facility] Stop: 07/29/19 08:59 Last Admin: 07/01/19 09:59 Dose: 30 mg Documented by: Enoxaparin Sodium (Lovenox) 40 mg SQ QAM [facility] Stop: 07/30/19 08:59 Last Admin: 07/01/19 10:16 Dose: 40 mg Documented by: Fish Oil ([place]-3 (Purified Fish Oil)) 1 gm PO DAILY [facility] Stop: 07/29/19 08:59 Last Admin: 07/01/19 09:59 Dose: 1 gm Documented by: Gabapentin (Neurontin) 200 mg PO HS [facility] Stop: 07/28/19 20:59 Last Admin: 06/30/19 21:01 Dose: 200 mg Documented by: Gabapentin (Neurontin) 100 mg PO QAM [facility] Stop: 07/29/19 08:59 Last Admin: 07/01/19 10:00 Dose: 100 mg Documented by: Miscellaneous (Remove Nicoderm Patch) 1 ea N/A DAILY@59 [facility] Stop: 07/30/19 08:58 Last Admin: 07/01/19 09:58 Dose: 1 ea Documented by: Nicotine (Nicoderm Cq) [facility] Stop: 07/28/19 20:59 Last Admin: 07/01/19 10:00 Dose: 14 mg Documented by: Ondansetron HCl (Zofran Tab) 4 mg PO Q8H PRN PRN Reason: Nausea Stop: 07/28/19 16:57 Last Admin: 06/30/19 17:54 Dose: 4 mg Documented by: Ondansetron HCl (Zofran) 4 mg IV Q8H PRN PRN Reason: n/v Stop: 07/30/19 08:44 Oxycodone HCl (Roxicodone Immediate Rel) 5 mg PO Q6H PRN PRN Reason: Severe Pain Stop: 07/12/19 16:57 Last Admin: 06/30/19 21:05 Dose: 5 mg Documented by: Promethazine HCl (Phenergan) 25 mg PO Q6H PRN PRN Reason: Nausea And Vomiting Stop: 07/30/19 08:35 Tramadol HCl (Ultram) 50 mg PO Q8H PRN PRN Reason: Pain Stop: 07/28/19 16:57 Last Admin: 06/30/19 11:10 Dose: 50 mg Documented by: (1) Anemia Anemia type: unspecified type Qualified Code(s): D64.9 - Anemia, unspecified
[2019-07-01] MEDS: AMITRIPTYLINE HCL 25 MG TAB PO SCH (20:41)
[2019-07-01] MEDS: OXYCODONE HCL IR 5 MG TAB (IMMEDIATE RELEASE) PO PRN (20:41)
[2019-07-02] MEDS ORDERED: HEPARIN (PORCINE) 1000 UNIT/ML 10 ML (CATH LAB USE ONLY) ONE (08:14)
[2019-07-02] MEDS ORDERED: NiCARDipine HCL INJ 2.5 MG/ML 10 ML AMP ONE (08:14)
[2019-07-02] MEDS ORDERED: fentaNYL citrate 100 MCG/2 ML VIAL ONE (08:15)
[2019-07-02] MEDS ORDERED: MIDAZOLAM HCL 1 MG/ML 2ML VIAL ONE (08:15)
[2019-07-02] MEDS ORDERED: NITROGLYCERIN/D5W 100MCG/ML 20ML SYR ONE (08:16)
--- NOTE | 2019-07-02 08:38 | Pre Anesthesia Assessment ---
Date of Service July 02, 2019 Pre Sedation Assessment Vital Signs Temp Pulse Resp BP Pulse Ox 07/02/19 08:08 76 17 94/56 L 95 07/02/19 07:41 36.8 C 74 18 118/63 98 07/02/19 04:00 36.7 C 70 17 109/61 94 07/01/19 23:10 36.8 C 77 18 111/77 93 07/01/19 18:43 37 C 84 20 119/79 94 07/01/19 15:27 37.2 C 77 20 111/73 94 07/01/19 10:57 36.8 C 85 19 90/64 L 93 Cardiovascular RRR, no murmur, no edema Respiratory normal respiratory effort, lungs clear to auscultation Pre-Sedation Airway Assessment Smoking Status: Current every day smoker Short, Thick Neck: No Thyromental Distance: > or= 3.5 Finger Breadths Oral Cavity: + Dentures Mallampati Class: III ASA: ASA3 NPO Status Date of Last Intake of Fluids: 07/01/19 Time of Last Intake of Fluids: 23:00 Date of Last Intake of Solid Food: 07/01/19 Time of Last Intake of Solid Foods: 18:00 Procedure Planning Contraindications for Sedation: none Current Medications Reviewed: Yes Notes The planned sedation has been discussed with the patient. Informed Consent was obtained. I have identified the patient, determined the appropriateness of sedation and have assessed the patient immediately prior to the procedure. All medicine(s) and interventions are by my order.
[2019-07-02] MEDS ORDERED: NITROGLYCERIN SL 0.4 MG/TAB TAB ONE (09:00)
--- NOTE | 2019-07-02 09:12 | Post Anesthesia Assessment ---
Date of Service July 02, 2019 Post Sedation Assessment Vital Signs Temp Pulse Resp BP Pulse Ox 07/02/19 08:08 76 17 94/56 L 95 07/02/19 07:41 36.8 C 74 18 118/63 98 07/02/19 04:00 36.7 C 70 17 109/61 94 07/01/19 23:10 36.8 C 77 18 111/77 93 07/01/19 18:43 37 C 84 20 119/79 94 07/01/19 15:27 37.2 C 77 20 111/73 94 07/01/19 10:57 36.8 C 85 19 90/64 L 93 Recovery Score Activity: Moves 4 extremities Respiration: Deep Breath/Cough Circulation: +/-20% PreAnes Value Consciousness: Fully Awake Oxygen Saturation: > 92% On Room Air Discharge Sedation Level of Care: Phase I Post Sedation Plan On clinical assessment, the patient appears to have tolerated the sedation without complications. Patient is recovering as anticipated. Patient will continue to be monitored by nursing and may be discharged when sedation discharge criteria are met per below protocol. Upon Completions of procedure up to 15 minutes continue every 5 minute vital signs and the P.A.R. score; then discharge to a Phase I or Fast Track to Phase II per the following guidelines: * Discharge Patient to appropriate Phase II area if PAR is 8 or greater or return to pre- procedure baseline. The post - procedure orders will be as directed. * If PAR score is less than 8 or not return to pre-procedure baseline then patient will follow Phase I monitoring till PAR is reached for Phase II. The Phase I may be done in procedure room or may call to secure a Phase I area. * If naloxone or flumazenil are used for reversal, hold in Phase I for continued monitoring from when last reversal dose was given for a minimum of 60 minutes or longer pending the nurse and/or physician discretion of patient condition before discharge to Phase II. Please call the Sedation Physician to re-evaluate and complete post-note for discharge to Phase II area. Do NOT discharge from procedure sedation or Phase 1 until post- sedation evaluation note is complete by procedure /sedation MD Sedation Discharge Instructions to be given to the patient at discharge to home.
--- NOTE | 2019-07-02 09:15 | Cardiac Catheterization ---
Cardiac Cath Procedure Full Procedure Date July 02, 2019 Pre-Procedure Diagnosis Pre-Procedure Diagnosis: Angina and Positive Stress Test (Equivocal dobutamine stress echo) AUC Score AUC Score: 7 Post-Procedure Diagnosis Post-Procedure Diagnosis: Mild CAD Procedure(s) Performed Procedure(s) Performed: Coronary Angiography and Left Heart Cath Tail Board Man Chris Clemente DO Health Aid(s) Daryn ADMINISTRATIVE ASSISTANT RECEPTIONIST Estimated Blood Loss Estimated Blood Loss: 5cc Medication(s) Medication(s): Heparin, Lidocaine 1%, Nicardipine, Nitroglycerin and Versed Summary of Findings Mild nonobstructive coronary artery disease. Diffuse coronary - left ventricular fistulas moderately opacifying the left ventricular cavity during coronary injections Fistulas arising from all coronary vessels. Hemodynamics Rest Ao:: 111/54/83 Final Ao: 88/53/70 LV: 88/0/9 Recommendations Recommendations: Medical Therapy and/or Counseling Specimens Specimens: None Radiation Exposure (mGy) 601 Contrast (mls) 65 Fluids (cc crystalloids) Fluids (cc crystalloids): 290 Nss Anesthesia Moderate sedation. Start 0843. End 0910. Sedation Monitor: Raine GARRISON Procedural Complication(s) None Disposition PCU I attest to the content of the Intraoperative Record and any orders documented therein. Any exceptions are noted below. ACC Data: Gas Line Servicer Cardiac Status Clinical evaluation leading to the procedure CAD Presenation: Positive Stress Test (Equivocal stress echo with continued anginal symptoms.) Anginal Classification: CCS IV Heart Failure: No Stress Echocardiogram: Yes - Indeterminant STEMI OR Non-STEMI Thrombolytics: No Coronary Anatomy Dominant: Right Left Main (% Stenosis): Normal LAD (% Stenosis): Proximal (10%) D1 (% Stenosis): Ostial (20%) Circumflex (% Stenosis): Normal OM1 (% Stenosis): Normal OM2 (% Stenosis): Normal L PL1 (% Stenosis): Normal L PL2 (% Stenosis): Normal RCA (% Stenosis): Mid (10%) R PDA (% Stenosis): Normal R PL1 (% Stenosis): Normal Left Ventricular Angiography EF (%): 70-75% Diagnostic Physicians Name: Chris Clemente DO Status: Elective Closure Device Percutaneous Entry Location: Radial Closure Device: Radial Band Recommendations: Medical Therapy and/or Counseling Intraprocedure Events Significant Disection: No Perforation: No
[2019-07-02] MEDS ORDERED: ONDANSETRON INJ 2 MG/ML 2 ML VIAL IV PRN (09:28)
[2019-07-02] MEDS ORDERED: ACETAMINOPHEN 325 MG TAB PO PRN (09:28)
[2019-07-02] MEDS: NICOTINE 14 MG/24 HR PATCH TD SCH (09:54)
[2019-07-02] MEDS: CALCIUM CARBONATE 1250MG TAB PO SCH (09:55)
[2019-07-02] MEDS: BuPROPion XL 150 MG TABCR PO SCH (09:55)
[2019-07-02] MEDS: ASPIRIN 81 MG ECTAB PO SCH (09:55)
[2019-07-02] MEDS: ENOXAPARIN INJ 40 MG/0.4 ML SYR SQ SCH (09:55)
[2019-07-02] MEDS: DULOXETINE HCL 30 MG CAP PO SCH (09:55)
[2019-07-02] MEDS: OMEGA-3 (PURIFIED FISH OIL) 1 GM CAP PO SCH (09:55)
[2019-07-02] MEDS: GABAPENTIN 100 MG CAP PO SCH ×2 (09:55→20:17)
--- NOTE | 2019-07-02 16:57 | Hospitalist Progress Note ---
Date of Service July 02, 2019 Assessment & Plan (1) Chest pain: ACS ruled out with negative serial cardiac enzymes and non-ischemic appearing EKGs. Pain persists with a definite MSK component. However, had an echo with some hypokinesis in Nov. Patient leaning toward oxycodone use, which she is not regularly on at home. Uses gabapentin and tramadol, mostly. Cont supportive care, planned dobutamine stress echo was equivocal. awaiting final Cards recs (2) PFO (patent foramen ovale): per cardiology recommendations. (3) Anemia: Around baseline. Known iron deficiency anemia related to nutritional deficiency after gastric bypass. Receives outpatient Venofer. Followed by hematology. Last colonoscopy was in 2013 and was normal. (4) History of gastric bypass: (5) Chronic pain syndrome: continues on elavil, tramadol PRN and neurontin per home regimen. Cautious administration of oxy this admission with high risk for addiction. (6) Tobacco use: Councelled that smoking is bad for her health and is a high risk for CAD. Nicoderm (7) H/O migraine: stable (8) Anxiety: cont cymbalta and buproprion per home regimen. (9) DVT prophylaxis: Lovenox Full Code Dispo-plan for home when medically stable. DSE Monday-awaiting results. labs checked ROS-No Headache, No Visual Changes, No Nausea, No Vomiting, No Fever, No Chills, No Neck Pain or Stiffness, + Chest Pain, No Palpitations, No SOB, No TOBIN, No Cough, No Sputum, No Wheezing, No Abdominal Pain, No Diarrhea, No Hematemesis, No Hemoptysis, No Unexpected Weight Loss, No Flank pain, No Melena, No Hematochezia, No Frequency, No Urgency, No Burning, No Hematuria, No Rashes, No Diaphoresis. Appetite is Normal Physical Exam Gen-AAO x 3, NAD, Afebrile Head-NCAT, EOMI, PERRLA, Anicteric Sclera, No Posterior Pharyngeal Erythema Neck-Supple, No JVD, No Thyromegaly, No Masses, No LAD, No Bruits Lungs-Clear to Auscultation Bilaterally, No Rales, No Rhonchi, No Wheezing, No Crepitus Chest-No S4, +S1, +S2, No S3, No Murmurs, No Rubs, No Gallops, No Ectopy Abdomen-Soft, Bowel Sounds Present, Non Tender, Non Distended, No Hepatomegaly, No Splenomegaly, No Palpable Masses, No Rebound, No Rigidity, No Guarding Musculoskeletal-Full Range of Motion Bilaterally, No CVAT Extremities-No Cyanosis, No Clubbing, No Edema Nuero-Cranial Nerves II-XII grossly intact, Motor WNL, DTRs WNL, Strength WNL, Non Focal Psych-Normal Mood Results & Data Vital Signs (Past 12 Hours) Vital Signs Temp Pulse Resp BP Pulse Ox 07/02/19 15:21 36.9 C 80 20 104/69 94 07/02/19 13:43 87 14 101/75 95 07/02/19 12:43 84 15 102/70 95 07/02/19 11:43 82 16 103/76 96 07/02/19 10:43 90 16 92/59 L 96 07/02/19 10:13 81 16 93/53 L 95 07/02/19 09:58 76 16 97/66 L 96 07/02/19 09:43 36.6 C 82 16 101/68 92 07/02/19 09:35 75 16 93/56 L 95 07/02/19 09:20 73 17 82/56 L 95 07/02/19 08:08 76 17 94/56 L 95 07/02/19 07:41 36.8 C 74 18 118/63 98 (1) Anemia Anemia type: unspecified type Qualified Code(s): D64.9 - Anemia, unspecified
[2019-07-02] MEDS: OXYCODONE HCL IR 5 MG TAB (IMMEDIATE RELEASE) PO PRN (18:40)
[2019-07-02] MEDS: AMITRIPTYLINE HCL 25 MG TAB PO SCH (20:17)
[2019-07-03] MEDS: ACETAMINOPHEN 500 MG TAB PO SCH ×3 (06:30→14:31)
[2019-07-03 06:45] LABS: Hematocrit (blood only) 35.1 % (37-47); Hemoglobin 11.3 g/dL (12.0-16.0); Mean Corpuscular Hemoglobin 30.9 pg (25-34); Mean Corpuscular Hgb Conc 32.2 g/dL (32-36); Mean Corpuscular Volume 95.9 fL (80-100); Mean Platelet Volume 11.6 fL (7.4-10.4); Platelet Count 220 K/uL (130-400); RDW Standard Deviation 45.9 fL (36.4-46.3); Red Blood Count 3.66 M/uL (4.2-5.4); White Blood Count 6.61 K/uL (4.8-10.8)
--- NOTE | 2019-07-03 07:15 | Hospitalist Progress Note ---
Date of Service July 03, 2019 Assessment & Plan (1) Chest pain: ACS ruled out with negative serial cardiac enzymes and non-ischemic appearing EKGs. Pain persists with a definite MSK component. However, had an echo with some hypokinesis in Nov. Patient leaning toward oxycodone use, which she is not regularly on at home. Uses gabapentin and tramadol, mostly. Cont supportive care, planned dobutamine stress echo was equivocal. awaiting final Cards recs Try Mobic and ATC Tylenol (2) PFO (patent foramen ovale): per cardiology recommendations. (3) Anemia: Around baseline. Known iron deficiency anemia related to nutritional deficiency after gastric bypass. Receives outpatient Venofer. Followed by hematology. Last colonoscopy was in 2013 and was normal. (4) History of gastric bypass: (5) Chronic pain syndrome: continues on elavil, tramadol PRN and neurontin per home regimen. Cautious administration of oxy this admission with high risk for addiction. (6) Tobacco use: Councelled that smoking is bad for her health and is a high risk for CAD. Gab (7) H/O migraine: stable (8) Anxiety: cont cymbalta and buproprion per home regimen. (9) DVT prophylaxis: Lovenox Full Code Dispo-plan for home today, ASA will be stopped, Mobic and Tylenol for pain labs checked ROS-No Headache, No Visual Changes, No Nausea, No Vomiting, No Fever, No Chills, No Neck Pain or Stiffness, +Chest Pain, No Palpitations, No SOB, No TOBIN, No Cough, No Sputum, No Wheezing, No Abdominal Pain, No Diarrhea, No Hematemesis, No Hemoptysis, No Unexpected Weight Loss, No Flank pain, No Melena, No Hematochezia, No Frequency, No Urgency, No Burning, No Hematuria, No Rashes, No Diaphoresis. Appetite is Normal Physical Exam Gen-AAO x 3, NAD, Afebrile Head-NCAT, EOMI, PERRLA, Anicteric Sclera, No Posterior Pharyngeal Erythema Neck-Supple, No JVD, No Thyromegaly, No Masses, No LAD, No Bruits Lungs-Clear to Auscultation Bilaterally, No Rales, No Rhonchi, No Wheezing, No Crepitus Chest-No S4, +S1, +S2, No S3, No Murmurs, No Rubs, No Gallops, No Ectopy, CP is reproducible Abdomen-Soft, Bowel Sounds Present, Non Tender, Non Distended, No Hepatomegaly, No Splenomegaly, No Palpable Masses, No Rebound, No Rigidity, No Guarding Musculoskeletal-Full Range of Motion Bilaterally, No CVAT Extremities-No Cyanosis, No Clubbing, No Edema Nuero-Cranial Nerves II-XII grossly intact, Motor WNL, DTRs WNL, Strength WNL, Non Focal Psych-Normal Mood Results & Data Vital Signs (Past 12 Hours) Vital Signs Temp Pulse Pulse Resp BP Pulse Ox 07/03/19 03:17 36.6 C 70 17 104/69 92 07/03/19 00:00 80 07/02/19 23:16 36.8 C 76 17 98/62 L 94 (1) Anemia Anemia type: unspecified type Qualified Code(s): D64.9 - Anemia, unspecified
[2019-07-03 07:18] LABS: Albumin Level 2.6 gm/dl (3.4-5.0); Calcium 8.7 mg/dl (8.5-10.1); Creatinine Clr Calc Pharmacy 74.8 ml/min; Est GFR (African American) 118.3; Est GFR (Non-African American) 102.1; Potassium 3.8 mmol/L (3.5-5.1)
[2019-07-03 07:21] LABS: Albumin Globulin Ratio 0.8 (0.9-2); Bilirubin,Total 0.3 mg/dl (0.2-1); Globulin 3.4 gm/dl (2.5-4.0)
[2019-07-03] MEDS: ASPIRIN 81 MG ECTAB PO SCH (07:54)
[2019-07-03] MEDS: GABAPENTIN 100 MG CAP PO SCH (07:54)
[2019-07-03] MEDS: BuPROPion XL 150 MG TABCR PO SCH (07:54)
[2019-07-03] MEDS: NICOTINE 14 MG/24 HR PATCH TD SCH (07:55)
[2019-07-03] MEDS: ENOXAPARIN INJ 40 MG/0.4 ML SYR SQ SCH (07:55)
[2019-07-03] MEDS: OMEGA-3 (PURIFIED FISH OIL) 1 GM CAP PO SCH (07:55)
[2019-07-03] MEDS: CALCIUM CARBONATE 1250MG TAB PO SCH (07:55)
[2019-07-03] MEDS: DULOXETINE HCL 30 MG CAP PO SCH (07:55)
[2019-07-03] MEDS ORDERED: MELOXICAM 7.5 MG TAB PO SCH (09:00)
--- NOTE | 2019-07-03 10:08 | Electrocardiogram Report ---
Test Reason : Blood Pressure : / mmHG Vent. Rate : 075 BPM Atrial Rate : 075 BPM P-R Int : 102 ms QRS Dur : 088 ms QT Int : 362 ms P-R-T Axes : 041 000 011 degrees QTc Int : 404 ms Poor data quality, interpretation may be adversely affected Sinus rhythm with short MS Low voltage QRS Borderline ECG When compared with ECG of 01-JUL-2019 06:22, No significant change was found Confirmed by Tj Medina ([id number]) on 07/03/2019 10:08:01 AM Referred By: REFERRED SELF Confirmed By:Tj Medina
[2019-07-03] MEDS: ALPRAZolam 0.25 MG TABLET PO PRN (10:18)
--- NOTE | 2019-07-03 11:42 | Discharge Summary ---
Date of Service July 03, 2019 Admission HPI Per Admitting Provider 53 years old female with past medical history of copper deficiency, chronic pain syndrome, iron deficiency anemia, vitamin B 12 deficiency, migraine, presented to the ER with chief complaint of chest pain. Patient said last night she developed pain in the right shoulder area. She said she used a warm compress but this morning when she woke up she developed pain in both shoulder area associated with mid chest pain. She said the chest pain worsening with deep breathing and associated with palpitation. She said that when she woke up this morning she had a hard time to breathe if and she felt a pressure in her chest like someone sat on her chest. She said that she felt a pounding in her chest. She said that she has been having abdominal discomfort with left-sided abdominal Calico type pain that comes and goes. She saw her PCP this morning and was given sublingual nitro and aspirin and was sent to the ER by EMS for eval. Patient said she saw cardiology few weeks ago for abnormal echo she is scheduled for nuclear stress next . She said her pain is worse with deep breathing and when pressure applies into the chest currently denies any chest pain, palpitation, dizziness, and shortness of breath. Admission Exam Per Admitting Provider General- No acute distress Head- atraumatic Eyes- PERRL, EOMI, ENT- oropharynx clear Neck- supple, no JVD Lungs- clear to auscultation Heart- regular rhythm; no murmur Abdomen- normal bowel sounds, soft, nontender Extremities- no calf tenderness Neuro- alert, oriented x 3; PERRL, EOMI; no facial palsy; no dysarthria Skin- warm & dry Principal Diagnosis (1) Chest pain: (2) PFO (patent foramen ovale): (3) Anemia: (4) History of gastric bypass: (5) Chronic pain syndrome: (6) Tobacco use: (7) H/O migraine: (8) Anxiety: (9) Costochondritis Discharge Exam Gen-AAO x 3, NAD, Afebrile Head-NCAT, EOMI, PERRLA, Anicteric Sclera, No Posterior Pharyngeal Erythema Neck-Supple, No JVD, No Thyromegaly, No Masses, No LAD, No Bruits Lungs-Clear to Auscultation Bilaterally, No Rales, No Rhonchi, No Wheezing, No Crepitus Chest-No S4, +S1, +S2, No S3, No Murmurs, No Rubs, No Gallops, No Ectopy, CP is reproducible Abdomen-Soft, Bowel Sounds Present, Non Tender, Non Distended, No Hepatomegaly, No Splenomegaly, No Palpable Masses, No Rebound, No Rigidity, No Guarding Musculoskeletal-Full Range of Motion Bilaterally, No CVAT Extremities-No Cyanosis, No Clubbing, No Edema Nuero-Cranial Nerves II-XII grossly intact, Motor WNL, DTRs WNL, Strength WNL, Non Focal Psych-Normal Mood Discharge Data Allergies Allergy/AdvReac Type Severity Reaction Status Date / Time Penicillins Allergy Unknown ? REACTION Verified 06/28/19 13:41 Sulfa (Sulfonamide Allergy Unknown Unknown Verified 06/28/19 13:41 Antibiotics) reaction aspirin AdvReac Mild No an Verified 06/28/19 13:41 allergy- cannot take post-bypass surgery ragweed pollen AdvReac Mild swelling Verified 06/28/19 13:41 Consultations 06/28/19 14:11 ED Decision to Admit Stat 06/28/19 16:58 Consult Cardiology Routine 06/28/19 17:01 Consult Behavioral Health Liaison Routine Procedures Performed Operation Date: 07/02/19 08:00 Actual Procedures p Cath, Left with Cors and Vent - Chris Clemente DO s Cineradiography w/Routine Exam - Chris Clemente DO Ordered Studies 07/02/19 06:46 CL Cath Imgs for PACS use only Routine Current Diagnoses Anemia, unspecified (06/29/19) Anxiety disorder, unspecified (06/29/19) Chronic pain syndrome (06/29/19) Atrial septal defect (06/29/19) Chest pain, unspecified (06/29/19) Encounter for prophylactic measures, unspecified (06/29/19) Tobacco use (06/29/19) Personal history of other diseases of the nervous system and sense organs (06/29/19) Bariatric surgery status (06/29/19) Allergies Penicillins Allergy (Unknown, Verified 06/28/19 13:41) ? REACTION Sulfa (Sulfonamide Antibiotics) Allergy (Unknown, Verified 06/28/19 13:41) Unknown reaction aspirin Adverse Reaction (Mild, Verified 06/28/19 13:41) No an allergy- cannot take post-bypass surgery ragweed pollen Adverse Reaction (Mild, Verified 06/28/19 13:41) swelling Height/Weight/Isolation Height 5 ft Weight 52.2 kg Isolation Type Contact Precautions Chemistry 07/03/19 06:29 Sodium 141 Potassium 3.8 Chloride 110 H Carbon Dioxide 29 Anion Gap 2.0 L BUN 16 Creatinine 0.61 Glucose 84 Hospital Course (1) Chest pain: ACS ruled out with negative serial cardiac enzymes and non-ischemic appearing EKGs. Pain persists with a definite MSK component. Try Mobic and ATC Tylenol on DC, Stop ASA, Continue Mobic for PFO, Restart ASA if Mobic DCd (2) PFO (patent foramen ovale): Mobic, ASA if not on Mobic (3) Anemia: Around baseline. Known iron deficiency anemia related to nutritional deficiency after gastric bypass. Receives outpatient Venofer. Followed by hematology. Last colonoscopy was in 2013 and was normal. (4) History of gastric bypass: (5) Chronic pain syndrome: continues on elavil, tramadol PRN and neurontin per home regimen. (6) Tobacco use: Councelled that smoking is bad for her health and is a high risk for CAD. (7) H/O migraine: stable (8) Anxiety: cont cymbalta and buproprion per home regimen. (9) DVT prophylaxis: Dispo-plan for home today, ASA will be stopped, Mobic and Tylenol for pain Total Time Total Time Spent Total Time Spent (In Minutes): 40 mins Total Time Includes: Examination of the Patient, Discharge Planning, Medication Reconciliation and Communication With Other Providers Discharge Plan Discharge Items Patient Disposition: Home - Self-Care Reason For Visit: CHEST PAIN Discharge Diagnosis: (1) Chest pain: Coronary Fistulae (2) PFO (patent foramen ovale): (3) Anemia: (4) History of gastric bypass: (5) Chronic pain syndrome: (6) Tobacco use: (7) H/O migraine: (8) Anxiety: (9) Costochondritis Condition on Discharge: Good Activity: Resume your previous activity Lifting: Gradually increase as tolerated Bathing: No limitations Sexual Activity: When tolerated Exercise/Sports: None Driving/Machine Use: No limitations Weightbearing: Full weightbearing Non-emergency contact: Primary Care Provider and Fruit [employer]eler Call non-emergency contact if: you have any medication questions Follow-up/Referrals: Evelyn Andrews MD [Primary Care Provider] - 07/09/19 11:20 am Diet: Regular Addtl Attending Provider Instructions: She is currently on Mobic for musculoskelotal Pain, If not on Mobic, needs to be on Baby ASA for PFO Addtl Test Engineering Intern Provider Instructions: She is currently on Mobic for musculoskelotal Pain, If not on Mobic, needs to be on Baby ASA for PRO Pending Studies at Discharge: No Stand-Alone Forms: Call Back Authorization, [facility], Smoking Cessation Medications and DC Order Prescriptions: New acetaminophen 500 mg Tablet 500 mg PO Q4H Qty: 100 RF: 0 meloxicam 7.5 mg Tablet 7.5 mg PO QAM Qty: 30 RF: 1 Continued amitriptyline 25 mg tablet 25 mg PO HS RF: 0 rizatriptan 10 mg tablet 10 mg PO DAILY PRN (Reason: Migraines) RF: 0 fremanezumab-vfrm 225 mg/1.5 mL syringe 225 mg SQ MONTHLY RF: 0 sumatriptan succinate [Imitrex] 100 mg tablet 50 mg PO Q2H PRN (Reason: Migraines) RF: 0 tramadol 50 mg Tablet 50 mg PO Q8H PRN (Reason: Pain) Qty: 0 RF: 0 ergocalciferol (vitamin D2) 50,000 unit Capsule 50,000 unit PO WK Qty: 0 RF: 0 cyanocobalamin (vitamin B-12) 1,000 mcg/mL Solution 1 dose IM MONTHLY Qty: 0 RF: 0 diphenoxylate-atropine [Lomotil] 2.5-0.025 mg Tablet 2 tab PO Q6H PRN (Reason: Diarrhea) Qty: 0 RF: 0 copper gluconate 2 mg Tablet 4 mg PO BID Qty: 0 RF: 0 gabapentin [Neurontin] 100 mg Capsule 100 mg PO QAM Qty: 0 RF: 0 gabapentin 100 mg Capsule 200 mg PO HS Qty: 0 RF: 0 zcoqvxwowf-srdqecixojhji-buxk 50-325-40 mg tablet 1 tab PO Q6H PRN (Reason: Pain) RF: 0 alprazolam 0.25 mg tablet 0.25 mg PO DAILY PRN (Reason: Anxiety) RF: 0 calcium carbonate [Oysco-500] 500 mg calcium (1,250 mg) tablet 1,000 mg PO DAILY RF: 0 bupropion HCl 150 mg tablet extended release 24 hr 150 mg PO QAM RF: 0 duloxetine 30 mg capsule,delayed release(DR/EC) 30 mg PO QAM RF: 0 Zofran 4 mg 4 mg PO Q8H PRN (Reason: Nausea) RF: 0 [place]-3 1,000 mg 1 cap PO DAILY RF: 0 Discontinued aspirin [Aspirin Low Dose] 81 mg Tablet,Delayed Release (Dr/Ec) 81 mg PO QAM RF: 0 Discharge Orders: Discharge Order (Routine); Ordered 07/03/19 Ordered By: Armando Macias Admission Data Admit Date/Time: 06/29/19 16:58 Attending Provider: Armando Macias Admit Provider: Guy Ricks Primary Care Provider: Evelyn Andrews Other Providers: Guy Ricks ; Kristian Blood
== END 2019-07-03 17:01 | disposition home or self-care (01) | DRG 287 ==
LOC: 2S 12:23 → ED 12:23 → SUATTDRO 15:42 → 2S 15:58 → SUATTDRO 06-29 16:58

== ENCOUNTER 2020-08-23 22:08 | Inpatient (IN) ==
[2020-08-23] MEDS ORDERED: SODIUM CHLORIDE 0.9% 1000ML 1,000 ML IV ONE (22:46)
[2020-08-23 22:55] LABS: Basophils # (auto) 0.04 K/uL (0-0.2); Basophils % (auto) 0.4 %; Eosinophils # (auto) 0.03 K/uL (0-0.5); Eosinophils % (auto) 0.3 %; Hemoglobin 11.2 g/dL (12.0-16.0); Immature Granulocytes # (auto) 0.01 K/uL (0.00-0.02); Immature Granulocytes % (auto) 0.1 %; Lymphocytes # (auto) 2.15 K/uL (1.2-3.4); Lymphocytes % (auto) 20.3 %; Mean Corpuscular Hemoglobin 31.5 pg (25-34); Mean Corpuscular Hgb Conc 32.9 g/dL (32-36); Mean Corpuscular Volume 95.8 fL (80-100); Mean Platelet Volume 12.7 fL (7.4-10.4); Monocytes # (auto) 0.35 K/uL (0.11-0.59); Monocytes % (auto) 3.3 %; Neutrophils # (auto) 8.03 K/uL (1.4-6.5); Neutrophils % (auto) 75.6 %; Platelet Count 204 K/uL (130-400); RDW Coefficient of Variation 14.8 % (11.5-14.5); RDW Standard Deviation 51.9 fL (36.4-46.3); Red Blood Count 3.55 M/uL (4.2-5.4); White Blood Count 10.61 K/uL (4.8-10.8)
[2020-08-23 23:36] LABS: Alanine Aminotransferase 33 U/L (12-78); Albumin Level 2.7 gm/dl (3.4-5.0); Alkaline Phosphatase 73 U/L (45-117); Aspartate Aminotransferase 29 U/L (15-37); BUN Creatinine Ratio 20.9 (10-20); Bilirubin Direct 0.2 mg/dl (0-0.2); Bilirubin,Total 0.5 mg/dl (0.2-1); Blood Urea Nitrogen 27 mg/dl (7-18); Calcium 8.1 mg/dl (8.5-10.1); Carbon Dioxide 25 mmol/L (21-32); Chloride 109 mmol/L (98-107); Est GFR (African American) 53.2; Est GFR (Non-African American) 45.9; Globulin 2.8 gm/dl (2.5-4.0); Glucose 143 mg/dl (70-99); Lipase 31 U/L (73-393); Magnesium 1.3 mg/dl (1.8-2.4); Phosphorus 5.2 mg/dl (2.5-4.9); Potassium 3.2 mmol/L (3.5-5.1); Sodium 146 mmol/L (136-145); Total Protein 5.5 gm/dl (6.4-8.2); Troponin I < 0.015 ng/ml (0-0.045)
[2020-08-24] LABS: INR 1.3 (0.9-1.1)
[2020-08-24] MEDS ORDERED: OPTIRAY 320 100ml IV ONE (00:03)
[2020-08-24] MEDS: POTASSIUM CHLORIDE / WTR 10 MEQ/100 ML PLCT IV SCH ×2 (00:11→01:12)
[2020-08-24] MEDS: MAGNESIUM SULFATE / D5W 1 GM/100 ML BAG IV SCH ×2 (00:12→01:11)
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
[2020-08-24] MEDS ORDERED: POTASSIUM CHLORIDE 40 MEQ in SODIUM CHLORIDE 0.45 % 1,000 ML IV ONE (01:15)
[2020-08-24 01:54] LABS: Influenza A virus by PCR Negative (Neg); Influenza B virus by PCR Negative (Neg); RSV by PCR Negative (Neg); SARS CoV2 RNA(COVID-19) InHosp NEGATIVE (Negative)
[2020-08-24] MEDS ORDERED: FAMOTIDINE 20MG IV PUSH 20 MG/5 ML SYR IV STA (02:07)
--- NOTE | 2020-08-24 02:07 | History & Physical Report ---
Date of Service August 24, 2020 Assessment & Plan (1) Abdominal pain: Worsening of chronic diarrhea symptoms rule out pathogens History of bariatric surgery/intestinal malabsorption as per records Abnormal CT (esophagitis rule out tumor on initial read) Rule out UTI ARF secondary to illness, home NSAID contributory chronic pain, at baseline mood disorder, at baseline chronic anemia, hemoglobin at baseline Hyperglycemia rule out DM Malnutrition RE low BMI secondary to illness ongoing tobacco abuse GMF Stool C. difficile, stool CS GI consult Re: Abdominal pain, abnormal CT, worsening diarrhea Check UA Monitor creatinine response to IVF Appropriate hold home meloxicam for now until kidney function back to baseline H2 keesha for esophagitis Check hemoglobin A1c Nutrition consult RE low BMI Nicotine patch DVT prophylaxis. Heparin subcu DNR Text document was generated using [employer] voice recognition software. It may contain grammatical or spelling errors. Kindly contact undersigned for clarification of any documentation item in question. History of Present Illness Chief Complaint: Worsening weakness, abdominal pain, diarrhea Primary Care Provider: Evelyn Forbes MD History obtained from patient and records. Medical history significant for chronic pain, history of bariatric surgery, migraine, intestinal malabsorption as per records, mood disorder, PFO as per records, chronic anemia (baseline hemoglobin 11), ongoing tobacco abuse. Last confinement June 2019 for chest pain. ACS ruled out. 1 month history of diarrhea symptoms more than usual, nonbloody, achy left-sided abdominal pain symptoms without fever, chills. Depression not the best, denies suicidality. No recent out-of-town travel, sick contacts, antibiotic Rx. Outpatient nutrition referral recommended by PCP. Patient noted worsening symptoms the last week. She thinks she may have lost 30 pounds in the last 3 months. Medical History as above 2013 EGD : Unremarkable post gastric bypass exam. 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 REACTION Verified 08/23/20 23:07 Sulfa (Sulfonamide Allergy Unknown Unknown Verified 08/23/20 23:07 Antibiotics) reaction aspirin AdvReac Mild No an Verified 08/23/20 23:07 allergy- cannot take post-bypass surgery ragweed pollen AdvReac Mild swelling Verified 08/23/20 23:07 Home Medications Medication Instructions Recorded Confirmed Type tramadol 50 mg PO Q8H PRN #0 tab 03/29/13 08/23/20 History ergocalciferol (vitamin D2) 50,000 unit PO WK #0 cap 11/26/13 08/23/20 History cyanocobalamin (vitamin B-12) 1 dose IM MONTHLY #0 06/11/14 08/23/20 History diphenoxylate-atropine [Lomotil] 1 tab PO QID PRN #0 tab 08/02/16 08/23/20 History sumatriptan succinate 100 mg tablet 50 mg PO UD PRN 09/20/18 08/23/20 History amitriptyline 25 mg tablet 25 mg PO HS tab 11/06/18 08/23/20 History rizatriptan 10 mg tablet 10 mg PO DAILY PRN tab 11/06/18 08/23/20 History fremanezumab-vfrm 225 mg/1.5 mL 225 mg SQ MONTHLY ml 04/15/19 08/23/20 History subcutaneous syringe alprazolam 0.25 mg PO DAILY PRN 06/28/19 08/23/20 History goeeagotsr-rzdkfacazfreq-kwzc 1 tab PO Q6H PRN 06/28/19 08/23/20 History calcium carbonate [Oysco-500] 1,000 mg PO DAILY 06/28/19 08/23/20 History omega-3 fatty acids 1,000 mg 1,000 mg PO DAILY 07/25/19 08/23/20 History capsule duloxetine 30 mg capsule,delayed 30 mg PO BID cap 10/29/19 08/23/20 History release gabapentin 100 mg capsule 300 mg PO TID #0 cap 10/29/19 08/23/20 History ondansetron HCl 4 mg tablet 4 mg PO Q8H PRN 10/29/19 08/23/20 History tizanidine 4 mg tablet 2 mg PO BID PRN 10/29/19 08/23/20 History acetaminophen 500 mg PO Q4H PRN 08/23/20 08/23/20 History calcitriol 0.25 mcg PO MOWEFR 08/23/20 08/23/20 History hydrocodone-acetaminophen 1 tab PO DAILY PRN 08/23/20 08/23/20 History meloxicam 7.5 - 15 mg PO DAILY PRN 08/23/20 08/23/20 History Past Med/Surg History Medical History (Updated 08/24/20 @ 06:54 by Luis Ren MD) Anemia Copper deficiency Malabsorption Migraine headache Zinc poisoning Surgical History History of bowel diversion surgery History of cholecystectomy History of gastric bypass Hx of cardiac cath jul 01 2019 Social History Smoking Status: Current every day smoker Cigarettes Per Day: 20-30; Second Hand Exposure: Yes; Hx Alcohol Use: Yes Alcohol type: hard liquor Hx Substance Use: No Preferred Language: Danish Communication Ability: Effective Visual Impairment: No Limitations Hearing Ability: Normal [place] Required: No Beliefs That Will Affect Care: None marital status: Current Living Situation: Spouse current occupational status: disabled 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[employer] [facility] Feels Safe at Home: Hesitant to Answer Safety Concerns: Afraid for Self Assistive Devices: Denture - Upper and Glasses Review of Systems Review of Systems: As per HPI, all 10 systems reviewed, all other ROS negative Physical Exam Physical Exam: GENERAL: Comfortable, slightly anxious, pleasant, underweight, no respiratory distress SKIN: Pallor , warm HEENT: Bespectacled, pale palpebral conjunctivae, no ptosis, dry buccal mucosa NECK : Supple, no tenderness CHEST : CTA, no tenderness HEART : RRR, no obvious murmurs ABDOMEN: Some distention, left-sided abdominal tenderness EXTREMITIES : No LE swelling/tenderness, no other conspicuous deformities noted NEUROLOGIC : Coherent, no facial asymmetry, no other gross focality Results & Data Results & Data ([facility]) Vital Signs (Past 12 Hours) Vital Signs Temp Pulse Pulse Resp BP BP Pulse Ox 08/24/20 00:25 97 H 16 113/76 100 08/23/20 22:48 96 08/23/20 22:32 81 16 106/64 96 08/23/20 22:11 35.7 C L 102 H 19 77/60 L 98 Laboratory Results Laboratory Results WBC 10.61 K/uL (4.8-10.8) 08/23/20 22:42 RBC 3.55 M/uL (4.2-5.4) L 08/23/20 22:42 Hgb 11.2 g/dL (12.0-16.0) L 08/23/20 22:42 Hct 34.0 % (37-47) L 08/23/20 22:42 MCV 95.8 fL (80-100) 08/23/20 22:42 MCH 31.5 pg (25-34) 08/23/20 22:42 MCHC 32.9 g/dL (32-36) 08/23/20 22:42 RDW Std Deviation 51.9 fL (36.4-46.3) H 08/23/20 22:42 RDW Coeff of Mike 14.8 % (11.5-14.5) H 08/23/20 22:42 Plt Count 204 K/uL (130-400) 08/23/20 22:42 MPV 12.7 fL (7.4-10.4) H 08/23/20 22:42 Immature Gran % (Auto) 0.1 % 08/23/20 22:42 Neut % (Auto) 75.6 % 08/23/20 22:42 Lymph % (Auto) 20.3 % 08/23/20 22:42 Pine % (Auto) 3.3 % 08/23/20 22:42 Eos % (Auto) 0.3 % 08/23/20 22:42 Baso % (Auto) 0.4 % 08/23/20 22:42 Neut # (Auto) 8.03 K/uL (1.4-6.5) H 08/23/20 22:42 Lymph # (Auto) 2.15 K/uL (1.2-3.4) 08/23/20 22:42 Pine # (Auto) 0.35 K/uL (0.11-0.59) 08/23/20 22:42 Eos # (Auto) 0.03 K/uL (0-0.5) 08/23/20 22: Baso # (Auto) 0.04 K/uL (0-0.2) 08/23/20 22:42 Immature Gran # (Auto) 0.01 K/uL (0.00-0.02) 08/23/20 22:42 PT 13.0 Seconds (9.0-12.0) H 08/23/20 23:35 INR 1.3 (0.9-1.1) H 08/23/20 23:35 Sodium 146 mmol/L (136-145) H 08/23/20 22:42 Potassium 3.2 mmol/L (3.5-5.1) L 08/23/20 22:42 Chloride 109 mmol/L (98-107) H 08/23/20 22:42 Carbon Dioxide 25 mmol/L (21-32) 08/23/20 22:42 Anion Gap 12.0 (3-11) H 08/23/20 22:42 BUN 27 mg/dl (7-18) H 08/23/20 22:42 Creatinine 1.29 mg/dl (0.6-1.2) H 08/23/20 22:42 Est Cr Clr Drug Dosing Not Reportable 08/23/20 22:42 Est GFR ( Amer) 53.2 08/23/20 22:42 Est GFR (Non-Af Amer) 45.9 08/23/20 22:42 BUN/Creatinine Ratio 20.9 (10-20) H 08/23/20 22:42 Glucose 143 mg/dl (70-99) H 08/23/20 22:42 Calcium 8.1 mg/dl (8.5-10.1) L 08/23/20 22:42 Phosphorus 5.2 mg/dl (2.5-4.9) H 08/23/20 22:42 Magnesium 1.3 mg/dl (1.8-2.4) L 08/23/20 22:42 Total Bilirubin 0.5 mg/dl (0.2-1) 08/23/20 22:42 Direct Bilirubin 0.2 mg/dl (0-0.2) 08/23/20 22:42 AST 29 U/L (15-37) 08/23/20 22:42 ALT 33 U/L (12-78) 08/23/20 22:42 Alkaline Phosphatase 73 U/L (45-117) 08/23/20 22:42 Troponin I < 0.015 ng/ml (0-0.045) 08/23/20 22:42 Total Protein 5.5 gm/dl (6.4-8.2) L 08/23/20 22:42 Albumin 2.7 gm/dl (3.4-5.0) L 08/23/20 22:42 Globulin 2.8 gm/dl (2.5-4.0) 08/23/20 22:42 Albumin/Globulin Ratio 1.0 (0.9-2) 08/23/20 22:42 Lipase 31 U/L (73-393) L 08/23/20 22:42 TSH 1.680 uIu/ml (0.300-4.500) 08/23/20 22:42 Ethyl Alcohol mg/dL < 3.0 mg/dl (0-3) 08/23/20 22:55 COVID-19 Eval Order [facility]FluRsv at [facility] 08/24/20 01:00 SARS-CoV-2 (PCR) NEGATIVE (Negative) 08/24/20 01:00 Influenza Type A (PCR) Negative (Neg) 08/24/20 01:00 Influenza Type B (PCR) Negative (Neg) 08/24/20 01:00 RSV (RT-PCR) Negative (Neg) 08/24/20 01:[address] head initial read: Cerebral volume loss predominantly involving the frontal lobes out of proportion for patient's age, progressed from previous exam. CT abdomen pelvis initial read: Mild anasarca, status post cholecystectomy with mild intrahepatic and extrahepatic biliary dilatation. Hepatic steatosis. Bilateral renal cysts. Small hiatal hernia with suggestion of wall thickening of distal esophagus which could be seen in the setting of esophagitis, underlying lesion not excluded. Consider endoscopy. 2 mm cystic structure left adnexa. Levoscoliosis. Chest x-ray as per my interpretation no congestion EKG as per my interpretation : Rate 95, NSR, normal axis, diffuse T wave abnormalities, low voltage
[2020-08-24] MEDS ORDERED: FAMOTIDINE 20MG/5ML IV PUSH IV ONE (02:10)
[2020-08-24] MEDS ORDERED: ACETAMINOPHEN 325 MG TAB PO PRN (03:48)
[2020-08-24] MEDS ORDERED: ALPRAZolam 0.25 MG TABLET PO PRN (03:48)
[2020-08-24] MEDS ORDERED: MAGNESIUM SULFATE / D5W 1 GM/100 ML BAG IV ONE (03:48)
[2020-08-24] MEDS: GABAPENTIN 100 MG CAP PO SCH ×3 (04:38→15:35)
[2020-08-24] MEDS: DULoxetine HCL 30 MG CAP PO SCH ×3 (04:38→21:49)
[2020-08-24 04:49] LABS: Appearance Urine Cloudy (Clear); Bacteria Urine Automated 3+ (Negative); Bilirubin Urine Negative (Negative); Blood Urine Trace (Negative); Color Urine Yellow; Glucose Urine UA Negative (Negative); Ketones Urine Negative (Negative); Leukocyte Esterase Urine Trace (Negative); Nitrite Urine Positive (Negative); Protein Urine Negative (Negative); Specific Gravity Urine 1.041 (1.000-1.030); Urobilinogen Urine Negative (Negative)
[2020-08-24 05:06] LABS: Amphetamines+Metham, Urine Neg (Neg); Barbiturates, Urine Neg (Neg); Benzodiazepine, Urine Pos (Neg); Cocaine, Urine Neg (Neg); MDMA (Ecstacy), Urine Neg (Neg); Methadone, Urine Neg (Neg); Opiate, Urine Neg (Neg); Phencyclidine, Urine Neg (Neg)
[2020-08-24] MEDS: HEPARIN SOD 5,000 UNIT/0.5 ML VIAL SQ SCH ×3 (05:19→21:50)
[2020-08-24] MEDS: AMITRIPTYLINE HCL 25 MG TAB PO SCH ×2 (05:19→21:49)
--- NOTE | 2020-08-24 06:51 | CT Scan Report ---
CT head/brain wo con CLINICAL HISTORY: weakness, dizziness, recurrent falls COMPARISON STUDY: CT scan dated 03/30/2013, MRI the brain dated 06/16/2017 TECHNIQUE: Axial CT of the brain is performed from the vertex to the skull base. IV contrast was not administered for this examination. A dose lowering technique was utilized adhering to the principles of ALARA. CT DOSE: FINDINGS: No intra or extra-axial mass lesions are visualized. There is no CT evidence of acute cortical infarc tion. There is no evidence of midline shift. There is no acute hemorrhage. No calvarial fractures ar e visualized. There are patchy white matter hypodensities likely on a small vessel basis. These appear age advanced . There is mild frontal lobe atrophy There is no evidence of pathologic ventricular dilatation. There is no evidence of acute sinusitis IMPRESSION: No acute intracranial findings ACT 112: Negative or not required by law. Electronically signed by: Benjamin Naqvi M.D. 08/24/2020 6:49 AM
[2020-08-24] MEDS ORDERED: CEFEPIME CONSULT ACTIVE PRN (06:53)
--- NOTE | 2020-08-24 07:01 | XRay Report ---
XR chest 1V portable CLINICAL HISTORY: Atypical chest pain COMPARISON STUDY: 06/28/2019 FINDINGS: There is a marked S-shaped thoracolumbar scoliosis. The heart is normal in size. There is n o failure. There is no focal pulmonary consolidation. There are no pleural effusions.[ IMPRESSION: No active disease in the chest. ACT 112: Negative or not required by law. Electronically signed by: Benjamin Naqvi M.D. 08/24/2020 7:00 AM
[2020-08-24] MEDS ORDERED: CEFEPIME 1,000 MG in SYRINGE 0 ML IV SCH (07:30)
--- NOTE | 2020-08-24 08:11 | CT Scan Report ---
ABDOMEN AND PELVIS CT WITH IV CONTRAST CT DOSE: 891.24 mGy.cm HISTORY: Acute generalized abdominal pain with weakness Abdominal pain, weakness, falls TECHNIQUE: Multiaxial CT images of the abdomen and pelvis were performed following the IV administrat ion of 94 cc of Optiray 320, A dose lowering technique was utilized adhering to the principles of AL KELL. COMPARISON STUDY: CT abdomen and pelvis 02/17/2015 FINDINGS: The imaged inferior cardiac chambers are unremarkable. Mild bibasilar atelectasis. No pneum atosis or pneumoperitoneum. The spleen, moderately atrophic pancreas and adrenal glands are unremarka ble. Cholecystectomy with extrahepatic biliary ductal dilation. The common bile duct measures up to 1 0 mm transversely which is stable from comparison and likely on a postsurgical basis. There is sugges dai hepatic steatosis. Tiny subcentimeter hypodensities in the liver are too small to characterize an d are unchanged and likely benign. Patency of the hepatic and portal veins. Bilateral renal cysts measure up to 2.6 cm on the right. There are 2 nonobstructing calculi of the brandon perior pole right kidney measuring up to 4 mm. 4 mm nonobstructing calculus of the interpolar left ki dney. No ureteral calculi or obstructive uropathy. Mild urinary bladder distention. Peripherally enha ncing cystic structure of the left adnexum measures 2.4 x 1.8 x 1.3 cm. Uterus is diminutive in size. 8 mm calcification medial and inferior to the right kidney is suggestive of a venous calcification. Atheromatous plaque the abdominal aorta without aneurysm. There is no adenopathy. Mild wall thickening of the distal esophagus. Postoperative changes of the stomach suggestive of Raúl -en-Y gastric bypass. No bowel obstruction or bowel wall thickening. The appendix is not definitively seen. No secondary signs of acute appendicitis. Mild mesenteric and generalized body wall edema. Deg enerative changes of the spine, pelvis and hips. There is no acute fracture. Convex left curvature of the thoracolumbar junction. IMPRESSION: 1. No bowel obstruction or bowel wall thickening. 2. Indeterminate peripherally enhancing cystic lesion of the left adnexum, 2.4 cm. 3. Cholecystectomy with prior gastric bypass. 4. Nonobstructing bilateral nephrolithiasis. 5. Additional findings as above. ACT 112: Negative or not required by law. The above report was generated using voice recognition software. It may contain grammatical, syntax o r spelling errors. Electronically signed by: Navin Lafleur M.D. 08/24/2020 8:09 AM
[2020-08-24 08:36] LABS: Basophils # (auto) 0.05 K/uL (0-0.2); Basophils % (auto) 0.3 %; Eosinophils # (auto) 0.14 K/uL (0-0.5); Eosinophils % (auto) 0.9 %; Hemoglobin 10.6 g/dL (12.0-16.0); Immature Granulocytes # (auto) 0.03 K/uL (0.00-0.02); Immature Granulocytes % (auto) 0.2 %; Lymphocytes # (auto) 4.53 K/uL (1.2-3.4); Lymphocytes % (auto) 29.6 %; Mean Corpuscular Hgb Conc 32.1 g/dL (32-36); Mean Corpuscular Volume 96.5 fL (80-100); Mean Platelet Volume 12.7 fL (7.4-10.4); Monocytes # (auto) 0.65 K/uL (0.11-0.59); Monocytes % (auto) 4.3 %; Neutrophils # (auto) 9.88 K/uL (1.4-6.5); Neutrophils % (auto) 64.7 %; Platelet Count 203 K/uL (130-400); RDW Coefficient of Variation 14.8 % (11.5-14.5); RDW Standard Deviation 52.4 fL (36.4-46.3); Red Blood Count 3.42 M/uL (4.2-5.4); White Blood Count 15.28 K/uL (4.8-10.8)
[2020-08-24] MEDS ORDERED: DULoxetine HCL 30 MG CAP PO SCH (09:00)
[2020-08-24] MEDS ORDERED: GABAPENTIN 100 MG CAP PO SCH (09:00)
[2020-08-24 09:03] LABS: Estimated Average Glucose 108 mg/dl; Hemoglobin A1C 5.4 % (4.5-5.6)
[2020-08-24 09:07] LABS: BUN Creatinine Ratio 21.5 (10-20); Calcium 7.7 mg/dl (8.5-10.1); Creatinine Clr Calc Pharmacy 45.5 ml/min; Est GFR (African American) 79.1; Est GFR (Non-African American) 68.2; Magnesium 2.4 mg/dl (1.8-2.4); Potassium 3.6 mmol/L (3.5-5.1)
[2020-08-24] MEDS: NICOTINE 14 MG/24 HR PATCH TD SCH (09:53)
--- NOTE | 2020-08-24 11:13 | Gastrointestinal Consultation ---
Date of Consultation August 24, 2020 Assessment & Plan (1) Abdominal pain: 55 year old female admitted with lower abdominal pain, onset May, intermittent, unchanged w/ PO or with BMs reporting chronic loose stools. No acute findings on CTAP Check stool studies Pantoprazole 40 mg daily Consider Bentyl 10 mg TID OP EGD/Colonoscopy Will sign off. Supervising Physician Co-Signing Physician Notes I performed a history and physical examination of the patient today, including specifically on physical exam - soft abdomen. I have discussed the patient's management with the advanced practitioner. Please refer to the nurse practitioner's note for the documented findings and plan of care. EGD/colonoscopy as OP. Recall GI if needed. History of Present Illness Reason for Consultation: abd pain, diarrhea Requesting Physician: Lori Attending Physician: Gallo Sandoval MD History of Present Illness 55 years old female with past medical history of iron deficiency anemia, hyperparathyroidism, chronic pain syndrome, migraines, osteopenia, myelopathy, depression, neuropathy, CKD, B12 deficiency, history of postoperative intestinal malabsorption with h/o remote gastric bypass admitted through the ED w/ weakness and abdominal pain. Onset of symptoms around May. Vague historian. Lower abd pain. Intermittent. Not associated with PO or with BMs. Does not radiate. There is some nausea which is chronic but not vomiting. Does note chronic loose stools but no black or bloody stools. Eating breakfast at time of evaluation. In the ED EKG without acute findings, Chest XR negative, stable H&H, lfts/lipase negative. CT w/ esophagitis otherwise unremarkable from GI standpoint No recent endoscopic evaluation Allergies Allergy/AdvReac Type Severity Reaction Status Date / Time Penicillins Allergy Unknown ? REACTION Verified 08/23/20 23:07 Sulfa (Sulfonamide Allergy Unknown Unknown Verified 08/23/20 23:07 Antibiotics) reaction aspirin AdvReac Mild No an Verified 08/23/20 23:07 allergy- cannot take post-bypass surgery ragweed pollen AdvReac Mild swelling Verified 08/23/20 23:07 Home Medications Medication Instructions Recorded Confirmed Type tramadol 50 mg PO Q8H PRN #0 tab 03/29/13 08/23/20 History ergocalciferol (vitamin D2) 50,000 unit PO WK #0 cap 11/26/13 08/23/20 History cyanocobalamin (vitamin B-12) 1 dose IM MONTHLY #0 06/11/14 08/23/20 History diphenoxylate-atropine [Lomotil] 1 tab PO QID PRN #0 tab 08/02/16 08/23/20 History sumatriptan succinate 100 mg tablet 50 mg PO UD PRN 09/20/18 08/23/20 History amitriptyline 25 mg tablet 25 mg PO HS tab 11/06/18 08/23/20 History rizatriptan 10 mg tablet 10 mg PO DAILY PRN tab 11/06/18 08/23/20 History fremanezumab-vfrm 225 mg/1.5 mL 225 mg SQ MONTHLY ml 04/15/19 08/23/20 History subcutaneous syringe alprazolam 0.25 mg PO DAILY PRN 06/28/19 08/23/20 History kpotmxuesy-znmtiegrxohig-efdj 1 tab PO Q6H PRN 06/28/19 08/23/20 History calcium carbonate [Oysco-500] 1,000 mg PO DAILY 06/28/19 08/23/20 History omega-3 fatty acids 1,000 mg 1,000 mg PO DAILY 07/25/19 08/23/20 History capsule duloxetine 30 mg capsule,delayed 30 mg PO BID cap 10/29/19 08/23/20 History release gabapentin 100 mg capsule 300 mg PO TID #0 cap 10/29/19 08/23/20 History ondansetron HCl 4 mg tablet 4 mg PO Q8H PRN 10/29/19 08/23/20 History tizanidine 4 mg tablet 2 mg PO BID PRN 10/29/19 08/23/20 History acetaminophen 500 mg PO Q4H PRN 08/23/20 08/23/20 History calcitriol 0.25 mcg PO MOWEFR 08/23/20 08/23/20 History hydrocodone-acetaminophen 1 tab PO DAILY PRN 08/23/20 08/23/20 History meloxicam 7.5 - 15 mg PO DAILY PRN 08/23/20 08/23/20 History Patient History Medical History (Updated 08/24/20 @ 06:54 by Luis Ren MD) Anemia Copper deficiency Malabsorption Migraine headache Zinc poisoning Surgical History History of bowel diversion surgery History of cholecystectomy History of gastric bypass Hx of cardiac cath jul 01 2019 Social History Smoking Status: Current every day smoker Cigarettes Per Day: 20-30; Second Hand Exposure: Yes; Hx Alcohol Use: Yes Alcohol type: hard liquor Hx Substance Use: No Preferred Language: Nauruan Communication Ability: Effective Visual Impairment: No Limitations Hearing Ability: Normal Grants Specialist Required: No Beliefs That Will Affect Care: None marital status: Current Living Situation: Spouse current occupational status: disabled 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- [employer] Feels Safe at Home: Hesitant to Answer Safety Concerns: Afraid for Self Assistive Devices: Cane Review of Systems Constitutional: no fever, no chills and no fatigue Respiratory: no cough and no dyspnea Cardiovascular: no chest pain and no dyspnea Gastrointestinal: + nausea; no abdominal pain, no heartburn, no diarrhea/loose stools, no blood in stools and no melena Physical Exam Constitutional: WD/WN, vitals as above + ill appearing and + thin; no acute distress Neck: trachea midline Respiratory: normal respiratory effort Cardiovascular: RRR, no murmur, no edema Gastrointestinal (Abdomen): Inspection/Auscultation: normal bowel sounds Percussion/Palpation: + abdomen tender and abdomen soft; no guarding and abdomen not rigid Results & Data ([facility]) Vital Signs (Past 12 Hours) Vital Signs Temp Pulse Resp BP Pulse Ox 08/24/20 08:10 36.4 C L 79 18 106/70 99 08/24/20 03:54 36.4 C L 74 16 128/83 98 08/24/20 02:54 93 H 18 113/91 96 08/24/20 00:25 97 H 16 113/76 100 Laboratory Results 08/24/20 08/24/20 08/24/20 Range/Units 08:03 08:02 08:02 WBC 15.28 H (4.8-10.8) K/uL RBC 3.42 L (4.2-5.4) M/uL Hgb 10.6 L (12.0-16.0) g/dL Hct 33.0 L (37-47) % MCV 96.5 (80-100) fL MCH 31.0 (25-34) pg MCHC 32.1 (32-36) g/dL RDW Std Deviation 52.4 H (36.4-46.3) fL RDW Coeff of Mike 14.8 H (11.5-14.5) % Plt Count 203 (130-400) K/uL MPV 12.7 H (7.4-10.4) fL Immature Gran % (Auto) 0.2 % Neut % (Auto) 64.7 % Lymph % (Auto) 29.6 % Reagan % (Auto) 4.3 % Eos % (Auto) 0.9 % Baso % (Auto) 0.3 % Neut # (Auto) 9.88 H (1.4-6.5) K/uL Lymph # (Auto) 4.53 H (1.2-3.4) K/uL Reagan # (Auto) 0.65 H (0.11-0.59) K/uL Eos # (Auto) 0.14 (0-0.5) K/uL Baso # (Auto) 0.05 (0-0.2) K/uL Immature Gran # (Auto) 0.03 H (0.00-0.02) K/uL PT INR Sodium 145 (136-145) mmol/L Potassium 3.6 (3.5-5.1) mmol/L Chloride 110 H (98-107) mmol/L Carbon Dioxide 22 (21-32) mmol/L Anion Gap 13.0 H (3-11) BUN 20 H (7-18) mg/dl Creatinine 0.93 D (0.6-1.2) mg/dl Est Cr Clr Drug Dosing 45.5 Est GFR ( Amer) 79.1 Est GFR (Non-Af Amer) 68.2 BUN/Creatinine Ratio 21.5 H (10-20) Glucose 64 L (70-99) mg/dl Estimat Average Glucose 108 mg/dl Hemoglobin A1c 5.4 (4.5-5.6) % Calcium 7.7 L (8.5-10.1) mg/dl Phosphorus (2.5-4.9) mg/dl Magnesium 2.4 (1.8-2.4) mg/dl Total Bilirubin (0.2-1) mg/dl Direct Bilirubin (0-0.2) mg/dl AST (15-37) U/L ALT (12-78) U/L Alkaline Phosphatase (45-117) U/L Troponin I (0-0.045) ng/ml Total Protein (6.4-8.2) gm/dl Albumin (3.4-5.0) gm/dl Globulin (2.5-4.0) gm/dl Albumin/Globulin Ratio (0.9-2) Lipase (73-393) U/L TSH (0.300-4.500) uIu/ml Urine Color Urine Appearance (Clear) Urine pH (4.5-7.5) Ur Specific Taylor (1.000-1.030) Urine Protein (Negative) Urine Glucose (UA) (Negative) Urine Ketones (Negative) Urine Blood (Negative) Urine Nitrite (Negative) Urine Bilirubin (Negative) Urine Urobilinogen (Negative) Ur Leukocyte Esterase (Negative) Urine WBC (Auto) (0-5) /hpf Urine RBC (Auto) (0-4) /hpf U Hyaline Cast (Auto) (0-5) /lpf U Epithel Cells (Auto) (0-5) /lpf Urine Bacteria (Auto) (Negative) Urine Crystals Granular Casts (0) /lpf Urine Opiates Screen (Neg) Ur Methadone, Qual (Neg) Urine Barbiturates (Neg) Ur Phencyclidine (PCP) (Neg) U Amphetamin/Meth Scrn (Neg) MDMA (Ecstasy) Screen (Neg) U OH-Alprazolam Confrm U Benzodiazepines Scrn (Neg) 7-Amino Clonazepam Ur Nordiazepam Confirm U OH-ethylflurazepam U Lorazepam Cnf GC/MS U Oxazepam Confm GC/MS Ur Temazepam Confirm U OH-Triazolam Confirm U OH-Midazolam Confirm Ur Cocaine Metabolite (Neg) U Marijuana (THC) Screen (Neg) Drug Screen Comment Ethyl Alcohol mg/dL (0-3) mg/dl COVID-19 Eval Order SARS-CoV-2 (PCR) (Negative) Influenza Type A (PCR) (Neg) Influenza Type B (PCR) (Neg) RSV (RT-PCR) (Neg) 08/24/20 08/24/20 08/24/20 Range/Units 03:50 03:50 03:50 WBC (4.8-10.8) K/uL RBC (4.2-5.4) M/uL Hgb (12.0-16.0) g/dL Hct (37-47) % MCV (80-100) fL MCH (25-34) pg MCHC (32-36) g/dL RDW Std Deviation (36.4-46.3) fL RDW Coeff of Mike (11.5-14.5) % Plt Count (130-400) K/uL MPV (7.4-10.4) fL Immature Gran % (Auto) % Neut % (Auto) % Lymph % (Auto) % Reagan % (Auto) % Eos % (Auto) % Baso % (Auto) % Neut # (Auto) (1.4-6.5) K/uL Lymph # (Auto) (1.2-3.4) K/uL Reagan # (Auto) (0.11-0.59) K/uL Eos # (Auto) (0-0.5) K/uL Baso # (Auto) (0-0.2) K/uL Immature Gran # (Auto) (0.00-0.02) K/uL PT INR Sodium (136-145) mmol/L Potassium (3.5-5.1) mmol/L Chloride (98-107) mmol/L Carbon Dioxide (21-32) mmol/L Anion Gap (3-11) BUN (7-18) mg/dl Creatinine (0.6-1.2) mg/dl Est Cr Clr Drug Dosing Est GFR ( Amer) Est GFR (Non-Af Amer) BUN/Creatinine Ratio (10-20) Glucose (70-99) mg/dl Estimat Average Glucose mg/dl Hemoglobin A1c (4.5-5.6) % Calcium (8.5-10.1) mg/dl Phosphorus (2.5-4.9) mg/dl Magnesium (1.8-2.4) mg/dl Total Bilirubin (0.2-1) mg/dl Direct Bilirubin (0-0.2) mg/dl AST (15-37) U/L ALT (12-78) U/L Alkaline Phosphatase (45-117) U/L Troponin I (0-0.045) ng/ml Total Protein (6.4-8.2) gm/dl Albumin (3.4-5.0) gm/dl Globulin (2.5-4.0) gm/dl Albumin/Globulin Ratio (0.9-2) Lipase (73-393) U/L TSH (0.300-4.500) uIu/ml Urine Color Yellow Urine Appearance Cloudy A (Clear) Urine pH 6.0 (4.5-7.5) Ur Specific Taylor 1.041 H (1.000-1.030) Urine Protein Negative (Negative) Urine Glucose (UA) Negative (Negative) Urine Ketones Negative (Negative) Urine Blood Trace H (Negative) Urine Nitrite Positive A (Negative) Urine Bilirubin Negative (Negative) Urine Urobilinogen Negative (Negative) Ur Leukocyte Esterase Trace H (Negative) Urine WBC (Auto) 10-30 H (0-5) /hpf Urine RBC (Auto) 5-10 H (0-4) /hpf U Hyaline Cast (Auto) 5-10 H (0-5) /lpf U Epithel Cells (Auto) 10-20 H (0-5) /lpf Urine Bacteria (Auto) 3+ H (Negative) Urine Crystals Not Reportable Granular Casts 1-5 H (0) /lpf Urine Opiates Screen Neg (Neg) Ur Methadone, Qual Neg (Neg) Urine Barbiturates Neg (Neg) Ur Phencyclidine (PCP) Neg (Neg) U Amphetamin/Meth Scrn Neg (Neg) MDMA (Ecstasy) Screen Neg (Neg) U OH-Alprazolam Confrm Pending U Benzodiazepines Scrn Pos H (Neg) 7-Amino Clonazepam Pending Ur Nordiazepam Confirm Pending U OH-ethylflurazepam Pending U Lorazepam Cnf GC/MS Pending U Oxazepam Confm GC/MS Pending Ur Temazepam Confirm Pending U OH-Triazolam Confirm Pending U OH-Midazolam Confirm Pending Ur Cocaine Metabolite Neg (Neg) U Marijuana (THC) Screen Neg (Neg) Drug Screen Comment Pending Ethyl Alcohol mg/dL (0-3) mg/dl COVID-19 Eval Order SARS-CoV-2 (PCR) (Negative) Influenza Type A (PCR) (Neg) Influenza Type B (PCR) (Neg) RSV (RT-PCR) (Neg) 08/24/20 08/24/20 08/23/20 Range/Units 01:00 01:00 23:35 WBC (4.8-10.8) K/uL RBC (4.2-5.4) M/uL Hgb (12.0-16.0) g/dL Hct (37-47) % MCV (80-100) fL MCH (25-34) pg MCHC (32-36) g/dL RDW Std Deviation (36.4-46.3) fL RDW Coeff of Mike (11.5-14.5) % Plt Count (130-400) K/uL MPV (7.4-10.4) fL Immature Gran % (Auto) % Neut % (Auto) % Lymph % (Auto) % Reagan % (Auto) % Eos % (Auto) % Baso % (Auto) % Neut # (Auto) (1.4-6.5) K/uL Lymph # (Auto) (1.2-3.4) K/uL Reagan # (Auto) (0.11-0.59) K/uL Eos # (Auto) (0-0.5) K/uL Baso # (Auto) (0-0.2) K/uL Immature Gran # (Auto) (0.00-0.02) K/uL PT 13.0 H INR 1.3 H Sodium (136-145) mmol/L Potassium (3.5-5.1) mmol/L Chloride (98-107) mmol/L Carbon Dioxide (21-32) mmol/L Anion Gap (3-11) BUN (7-18) mg/dl Creatinine (0.6-1.2) mg/dl Est Cr Clr Drug Dosing Est GFR ( Amer) Est GFR (Non-Af Amer) BUN/Creatinine Ratio (10-20) Glucose (70-99) mg/dl Estimat Average Glucose mg/dl Hemoglobin A1c (4.5-5.6) % Calcium (8.5-10.1) mg/dl Phosphorus (2.5-4.9) mg/dl Magnesium (1.8-2.4) mg/dl Total Bilirubin (0.2-1) mg/dl Direct Bilirubin (0-0.2) mg/dl AST (15-37) U/L ALT (12-78) U/L Alkaline Phosphatase (45-117) U/L Troponin I (0-0.045) ng/ml Total Protein (6.4-8.2) gm/dl Albumin (3.4-5.0) gm/dl Globulin (2.5-4.0) gm/dl Albumin/Globulin Ratio (0.9-2) Lipase (73-393) U/L TSH (0.300-4.500) uIu/ml Urine Color Urine Appearance (Clear) Urine pH (4.5-7.5) Ur Specific Taylor (1.000-1.030) Urine Protein (Negative) Urine Glucose (UA) (Negative) Urine Ketones (Negative) Urine Blood (Negative) Urine Nitrite (Negative) Urine Bilirubin (Negative) Urine Urobilinogen (Negative) Ur Leukocyte Esterase (Negative) Urine WBC (Auto) (0-5) /hpf Urine RBC (Auto) (0-4) /hpf U Hyaline Cast (Auto) (0-5) /lpf U Epithel Cells (Auto) (0-5) /lpf Urine Bacteria (Auto) (Negative) Urine Crystals Granular Casts (0) /lpf Urine Opiates Screen (Neg) Ur Methadone, Qual (Neg) Urine Barbiturates (Neg) Ur Phencyclidine (PCP) (Neg) U Amphetamin/Meth Scrn (Neg) MDMA (Ecstasy) Screen (Neg) U OH-Alprazolam Confrm U Benzodiazepines Scrn (Neg) 7-Amino Clonazepam Ur Nordiazepam Confirm U OH-ethylflurazepam U Lorazepam Cnf GC/MS U Oxazepam Confm GC/MS Ur Temazepam Confirm U OH-Triazolam Confirm U OH-Midazolam Confirm Ur Cocaine Metabolite (Neg) U Marijuana (THC) Screen (Neg) Drug Screen Comment Ethyl Alcohol mg/dL (0-3) mg/dl COVID-19 Eval Order [facility]Rsv at [facility] SARS-CoV-2 (PCR) NEGATIVE (Negative) Influenza Type A (PCR) Negative (Neg) Influenza Type B (PCR) Negative (Neg) RSV (RT-PCR) Negative (Neg) 08/23/20 08/23/20 08/23/20 Range/Units 22:55 22:42 22:42 WBC 10.61 (4.8-10.8) K/uL RBC 3.55 L (4.2-5.4) M/uL Hgb 11.2 L (12.0-16.0) g/dL Hct 34.0 L (37-47) % MCV 95.8 (80-100) fL MCH 31.5 (25-34) pg MCHC 32.9 (32-36) g/dL RDW Std Deviation 51.9 H (36.4-46.3) fL RDW Coeff of Mike 14.8 H (11.5-14.5) % Plt Count 204 (130-400) K/uL MPV 12.7 H (7.4-10.4) fL Immature Gran % (Auto) 0.1 % Neut % (Auto) 75.6 % Lymph % (Auto) 20.3 % Reagan % (Auto) 3.3 % Eos % (Auto) 0.3 % Baso % (Auto) 0.4 % Neut # (Auto) 8.03 H (1.4-6.5) K/uL Lymph # (Auto) 2.15 (1.2-3.4) K/uL Reagan # (Auto) 0.35 (0.11-0.59) K/uL Eos # (Auto) 0.03 (0-0.5) K/uL Baso # (Auto) 0.04 (0-0.2) K/uL Immature Gran # (Auto) 0.01 (0.00-0.02) K/uL PT Cancelled INR Cancelled Sodium (136-145) mmol/L Potassium (3.5-5.1) mmol/L Chloride (98-107) mmol/L Carbon Dioxide (21-32) mmol/L Anion Gap (3-11) BUN (7-18) mg/dl Creatinine (0.6-1.2) mg/dl Est Cr Clr Drug Dosing Est GFR ( Amer) Est GFR (Non-Af Amer) BUN/Creatinine Ratio (10-20) Glucose (70-99) mg/dl Estimat Average Glucose mg/dl Hemoglobin A1c (4.5-5.6) % Calcium (8.5-10.1) mg/dl Phosphorus (2.5-4.9) mg/dl Magnesium (1.8-2.4) mg/dl Total Bilirubin (0.2-1) mg/dl Direct Bilirubin (0-0.2) mg/dl AST (15-37) U/L ALT (12-78) U/L Alkaline Phosphatase (45-117) U/L Troponin I (0-0.045) ng/ml Total Protein (6.4-8.2) gm/dl Albumin (3.4-5.0) gm/dl Globulin (2.5-4.0) gm/dl Albumin/Globulin Ratio (0.9-2) Lipase (73-393) U/L TSH (0.300-4.500) uIu/ml Urine Color Urine Appearance (Clear) Urine pH (4.5-7.5) Ur Specific Taylor (1.000-1.030) Urine Protein (Negative) Urine Glucose (UA) (Negative) Urine Ketones (Negative) Urine Blood (Negative) Urine Nitrite (Negative) Urine Bilirubin (Negative) Urine Urobilinogen (Negative) Ur Leukocyte Esterase (Negative) Urine WBC (Auto) (0-5) /hpf Urine RBC (Auto) (0-4) /hpf U Hyaline Cast (Auto) (0-5) /lpf U Epithel Cells (Auto) (0-5) /lpf Urine Bacteria (Auto) (Negative) Urine Crystals Granular Casts (0) /lpf Urine Opiates Screen (Neg) Ur Methadone, Qual (Neg) Urine Barbiturates (Neg) Ur Phencyclidine (PCP) (Neg) U Amphetamin/Meth Scrn (Neg) MDMA (Ecstasy) Screen (Neg) U OH-Alprazolam Confrm U Benzodiazepines Scrn (Neg) 7-Amino Clonazepam Ur Nordiazepam Confirm U OH-ethylflurazepam U Lorazepam Cnf GC/MS U Oxazepam Confm GC/MS Ur Temazepam Confirm U OH-Triazolam Confirm U OH-Midazolam Confirm Ur Cocaine Metabolite (Neg) U Marijuana (THC) Screen (Neg) Drug Screen Comment Ethyl Alcohol mg/dL < 3.0 (0-3) mg/dl COVID-19 Eval Order SARS-CoV-2 (PCR) (Negative) Influenza Type A (PCR) (Neg) Influenza Type B (PCR) (Neg) RSV (RT-PCR) (Neg) 08/23/20 Range/Units 22:42 WBC (4.8-10.8) K/uL RBC (4.2-5.4) M/uL Hgb (12.0-16.0) g/dL Hct (37-47) % MCV (80-100) fL MCH (25-34) pg MCHC (32-36) g/dL RDW Std Deviation (36.4-46.3) fL RDW Coeff of Mike (11.5-14.5) % Plt Count (130-400) K/uL MPV (7.4-10.4) fL Immature Gran % (Auto) % Neut % (Auto) % Lymph % (Auto) % Reagan % (Auto) % Eos % (Auto) % Baso % (Auto) % Neut # (Auto) (1.4-6.5) K/uL Lymph # (Auto) (1.2-3.4) K/uL Reagan # (Auto) (0.11-0.59) K/uL Eos # (Auto) (0-0.5) K/uL Baso # (Auto) (0-0.2) K/uL Immature Gran # (Auto) (0.00-0.02) K/uL PT INR Sodium 146 H (136-145) mmol/L Potassium 3.2 L (3.5-5.1) mmol/L Chloride 109 H (98-107) mmol/L Carbon Dioxide 25 (21-32) mmol/L Anion Gap 12.0 H (3-11) BUN 27 H (7-18) mg/dl Creatinine 1.29 H (0.6-1.2) mg/dl Est Cr Clr Drug Dosing Not Reportable Est GFR ( Amer) 53.2 Est GFR (Non-Af Amer) 45.9 BUN/Creatinine Ratio 20.9 H (10-20) Glucose 143 H (70-99) mg/dl Estimat Average Glucose mg/dl Hemoglobin A1c (4.5-5.6) % Calcium 8.1 L (8.5-10.1) mg/dl Phosphorus 5.2 H (2.5-4.9) mg/dl Magnesium 1.3 L (1.8-2.4) mg/dl Total Bilirubin 0.5 (0.2-1) mg/dl Direct Bilirubin 0.2 (0-0.2) mg/dl AST 29 (15-37) U/L ALT 33 (12-78) U/L Alkaline Phosphatase 73 (45-117) U/L Troponin I < 0.015 (0-0.045) ng/ml Total Protein 5.5 L (6.4-8.2) gm/dl Albumin 2.7 L (3.4-5.0) gm/dl Globulin 2.8 (2.5-4.0) gm/dl Albumin/Globulin Ratio 1.0 (0.9-2) Lipase 31 L (73-393) U/L TSH 1.680 (0.300-4.500) uIu/ml Urine Color Urine Appearance (Clear) Urine pH (4.5-7.5) Ur Specific Taylor (1.000-1.030) Urine Protein (Negative) Urine Glucose (UA) (Negative) Urine Ketones (Negative) Urine Blood (Negative) Urine Nitrite (Negative) Urine Bilirubin (Negative) Urine Urobilinogen (Negative) Ur Leukocyte Esterase (Negative) Urine WBC (Auto) (0-5) /hpf Urine RBC (Auto) (0-4) /hpf U Hyaline Cast (Auto) (0-5) /lpf U Epithel Cells (Auto) (0-5) /lpf Urine Bacteria (Auto) (Negative) Urine Crystals Granular Casts (0) /lpf Urine Opiates Screen (Neg) Ur Methadone, Qual (Neg) Urine Barbiturates (Neg) Ur Phencyclidine (PCP) (Neg) U Amphetamin/Meth Scrn (Neg) MDMA (Ecstasy) Screen (Neg) U OH-Alprazolam Confrm U Benzodiazepines Scrn (Neg) 7-Amino Clonazepam Ur Nordiazepam Confirm U OH-ethylflurazepam U Lorazepam Cnf GC/MS U Oxazepam Confm GC/MS Ur Temazepam Confirm U OH-Triazolam Confirm U OH-Midazolam Confirm Ur Cocaine Metabolite (Neg) U Marijuana (THC) Screen (Neg) Drug Screen Comment Ethyl Alcohol mg/dL (0-3) mg/dl COVID-19 Eval Order SARS-CoV-2 (PCR) (Negative) Influenza Type A (PCR) (Neg) Influenza Type B (PCR) (Neg) RSV (RT-PCR) (Neg)
--- NOTE | 2020-08-24 14:08 | Electrocardiogram Report ---
Test Reason : Blood Pressure : / mmHG Vent. Rate : 095 BPM Atrial Rate : 095 BPM P-R Int : 152 ms QRS Dur : 080 ms QT Int : 336 ms P-R-T Axes : 070 010 091 degrees QTc Int : 422 ms Sinus rhythm with marked sinus arrhythmia Low voltage QRS Cannot rule out Anterior infarct , age undetermined Abnormal ECG When compared with ECG of 02-JUL-2019 18:26, Nonspecific T wave abnormality now evident in Anterolateral leads Confirmed by Tj Medina ([id number]) on 08/24/2020 2:08:20 PM Referred By: REFERRED SELF Confirmed By:Tj Medina
--- NOTE | 2020-08-24 15:10 | Hospitalist Progress Note ---
Date of Service August 24, 2020 Assessment & Plan (1) Abdominal pain: Abdominal Pain/Nausea/Vomiting DD: Gastroenteritis, malabsorption given history of bariatric surgery CT ABD: No bowel obstruction or bowel wall thickening. Cholecystectomy with prior gastric bypass. Nonobstructing bilateral nephrolithiasis. Check Stool studies if recurrence of diarrhea Continue PPI Bentyl PRN Appreciate GI input Outpatient EGD/Colonoscopy Lactose intolerant diet Hypokalemia Hypomagnesemia Secondary low above Replete electrolytes as needed Monitor UTI Continue IV antibiotics Urine culture pending Monitor Acute kidney injury Hold home NSAIDs Renal function improved with IV fluids Avoid nephrotoxic agents as able Monitor renal function H/O Multiple Falls Follows with Fall precautions PT/OT Left Adnexal Cyst Incidental finding on CT OBGYN follow up as outpatient Mood disorder Continue home meds Severe Protein Calorie Malnutrition BMI:19 Needs Outpatient EGD/Colonoscopy 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 Patch DVT Px: Heparin SQ Code Status DNR/DNI Admission and Anticipated Discharge Date Admission Date: August 24, 2020 Subjective Patient is seen and examined at bedside Reports having abdominal pain, diarrhea Patient had an unwitnessed fall this morning prior Patient denies any head trauma and admits to having multiple falls at home Also states having nausea but no vomiting Reports having dysuria which is improving Offers no other complaints Review of Systems Review of Systems: All systems reviewed & are unremarkable except as noted in HPI & below Physical Exam Physical Exam: Physical Exam: Vitals signs as noted above General Appearance:Thin, frail, no apparent distress Head: normocephalic, Atraumatic Eyes: normal inspection, EOMI Neck: supple, Trachea midline Respiratory/Chest: Decreased breath sounds, CTA Cardiovascular: S1, S2, No murmur Abdomen/GI:Soft, LLQ tender, Bowel sounds present, +Well healed surgical scar Extremities/Musculoskelatal:normal inspection, no edema Neurologic/Psych:AAOX3, grossly no focal neurological deficits Skin: normal color, warm Results & Data Results & Data ([facility]) Vital Signs (Past 12 Hours) Vital Signs Temp Pulse Resp BP Pulse Ox 08/24/20 08:10 36.4 C L 79 18 106/70 99 08/24/20 03:54 36.4 C L 74 16 128/83 98 Laboratory Results Short CBC 08/23/20 08/24/20 Range/Units 22:42 08:03 WBC 10.61 15.28 H (4.8-10.8) K/uL Hgb 11.2 L 10.6 L (12.0-16.0) g/dL Hct 34.0 L 33.0 L (37-47) % Plt Count 204 203 (130-400) K/uL BMP 08/23/20 08/24/20 22:42 08:02 Sodium 146 H 145 Potassium 3.2 L 3.6 Chloride 109 H 110 H Carbon Dioxide 25 22 BUN 27 H 20 H Creatinine 1.29 H 0.93 D Glucose 143 H 64 L Calcium 8.1 L 7.7 L Cardiac Enzymes 08/23/20 Range/Units 22:42 Troponin I < 0.015 (0-0.045) ng/ml Liver Function 08/23/20 Range/Units 22:42 Total Bilirubin 0.5 (0.2-1) mg/dl Direct Bilirubin 0.2 (0-0.2) mg/dl AST 29 (15-37) U/L ALT 33 (12-78) U/L Alkaline Phosphatase 73 (45-117) U/L Albumin 2.7 L (3.4-5.0) gm/dl Urine 08/24/20 Range/Units 03:50 Urine Color Yellow Urine Appearance Cloudy A (Clear) Urine pH 6.0 (4.5-7.5) Ur Specific [place] 1.041 H (1.000-1.030) Urine Protein Negative (Negative) Urine Glucose (UA) Negative (Negative)
[2020-08-24] MEDS: CALCITRIOL 0.25 MCG CAPSULE PO SCH (16:53)
[2020-08-24] MEDS ORDERED: AMITRIPTYLINE HCL 25 MG TAB PO SCH (21:00)
[2020-08-24] MEDS: FAMOTIDINE 10 MG TABLET PO SCH (21:49)
[2020-08-25] MEDS: HEPARIN SOD 5,000 UNIT/0.5 ML VIAL SQ SCH ×2 (06:16→13:30)
[2020-08-25 07:31] LABS: Hematocrit (blood only) 28.5 % (37-47); Hemoglobin 9.2 g/dL (12.0-16.0); Mean Corpuscular Hemoglobin 30.7 pg (25-34); Mean Corpuscular Hgb Conc 32.3 g/dL (32-36); Mean Platelet Volume 12.4 fL (7.4-10.4); Platelet Count 181 K/uL (130-400); RDW Standard Deviation 51.7 fL (36.4-46.3)
[2020-08-25] MEDS: DULoxetine HCL 30 MG CAP PO SCH ×2 (07:45→21:25)
[2020-08-25] MEDS: FAMOTIDINE 10 MG TABLET PO SCH (07:45)
[2020-08-25] MEDS: PANTOprazole 40 MG TAB PO SCH (07:45)
[2020-08-25] MEDS: CALCITRIOL 0.25 MCG CAPSULE PO SCH (07:46)
[2020-08-25] MEDS: CYANOCOBALAMIN 500 MCG TABLET (VITAMIN B-12) PO SCH (07:46)
[2020-08-25] MEDS: MULTIVITAMIN TAB PO SCH (07:46)
[2020-08-25 08:00] LABS: BUN Creatinine Ratio 21.5 (10-20); Calcium 7.8 mg/dl (8.5-10.1); Creatinine Clr Calc Pharmacy 46.5 ml/min; Est GFR (African American) 81.2; Magnesium 1.8 mg/dl (1.8-2.4)
[2020-08-25] MEDS: cefTRIAXone SODIUM 2,000 MG in DEXTROSE 5% 50 ML IV SCH (08:01)
[2020-08-25] MEDS: NICOTINE 14 MG/24 HR PATCH TD SCH (08:33)
[2020-08-25] MEDS: DICYCLOMINE HCL 10 MG CAP PO PRN (09:37)
[2020-08-25] MEDS: BUTALBITAL/ACETAMIN/CAFFEINE TAB PO PRN ×2 (13:21→21:25)
[2020-08-25] MEDS: GABAPENTIN 100 MG CAP PO SCH ×2 (13:24→21:25)
--- NOTE | 2020-08-25 16:44 | Hospitalist Progress Note ---
Date of Service August 25, 2020 Assessment & Plan (1) Abdominal pain: Abdominal Pain/Nausea/Vomiting DD: Gastroenteritis, malabsorption given history of bariatric surgery CT ABD: No bowel obstruction or bowel wall thickening. Cholecystectomy with prior gastric bypass. Nonobstructing bilateral nephrolithiasis. Check Stool studies if recurrence of diarrhea Continue PPI Bentyl PRN Appreciate GI input Outpatient EGD/Colonoscopy as per GI Lactose intolerant diet Hypokalemia Hypomagnesemia Secondary low above Replete electrolytes as needed Monitor Metabolic Encephalopathy UTI Continue IV Rocephin Urine culture growing E. coli. 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 Patch DVT Px: Lovenox SQ Code Status DNR/DNI Disposition PT OT recommends rehab Admission and Anticipated Discharge Date Admission Date: August 24, 2020 Subjective Patient is seen and examined at bedside Reports having headache this morning Also states having chronic neuropathy Appetite is poor Confusion resolved Reports having some abdominal pain Had semiformed bowel movement today Dysuria improving Offers no other complaints Review of Systems Review of Systems: All systems reviewed & are unremarkable except as noted in HPI & below Physical Exam Physical Exam: Physical Exam: Vitals signs as noted above General Appearance:Thin, frail, no apparent distress Head: normocephalic, Atraumatic Eyes: normal inspection, EOMI Neck: supple, Trachea midline Respiratory/Chest: Decreased breath sounds, CTA Cardiovascular: S1, S2, No murmur Abdomen/GI:Soft, LLQ tender, Bowel sounds present, +Well healed surgical scar Extremities/Musculoskelatal:normal inspection, no edema Neurologic/Psych:AAOX3, grossly no focal neurological deficits Skin: normal color, warm Results & Data Results & Data ([facility]) Vital Signs (Past 12 Hours) Vital Signs Temp Pulse Resp BP BP Pulse Ox 08/25/20 15:36 37.2 C 83 18 94/60 L 96 08/25/20 07:12 37.2 C 89 16 103/69 94 Laboratory Results Short CBC 08/25/20 Range/Units 06:52 WBC 7.40 (4.8-10.8) K/uL Hgb 9.2 L (12.0-16.0) g/dL Hct 28.5 L (37-47) % Plt Count 181 (130-400) K/uL [facility] 08/25/20 06:52 Sodium 144 Potassium 4.0 Chloride 114 H Carbon Dioxide 23 BUN 20 H Creatinine 0.91 Glucose 83 Calcium 7.8 L
[2020-08-25] MEDS: tiZANidine HCL 4 MG TABLET PO PRN (16:45)
[2020-08-25] MEDS: traMADol HCL 50 MG TABLET PO PRN ×2 (18:23→23:55)
[2020-08-25] MEDS: AMITRIPTYLINE HCL 25 MG TAB PO SCH (21:25)
[2020-08-26] MEDS: DICYCLOMINE HCL 10 MG CAP PO PRN ×2 (02:36→09:17)
[2020-08-26] MEDS: tiZANidine HCL 4 MG TABLET PO PRN (05:57)
[2020-08-26 07:18] LABS: Hematocrit (blood only) 27.1 % (37-47); Hemoglobin 8.8 g/dL (12.0-16.0); Mean Corpuscular Hemoglobin 30.8 pg (25-34); Mean Corpuscular Hgb Conc 32.5 g/dL (32-36); Mean Corpuscular Volume 94.8 fL (80-100); Mean Platelet Volume 12.4 fL (7.4-10.4); Platelet Count 160 K/uL (130-400); RDW Coefficient of Variation 14.9 % (11.5-14.5); RDW Standard Deviation 51.7 fL (36.4-46.3); Red Blood Count 2.86 M/uL (4.2-5.4); White Blood Count 5.64 K/uL (4.8-10.8)
[2020-08-26 07:48] LABS: BUN Creatinine Ratio 25.2 (10-20); Calcium 7.8 mg/dl (8.5-10.1); Creatinine Clr Calc Pharmacy 55.7 ml/min; Est GFR (African American) 100.9; Est GFR (Non-African American) 87.1; Magnesium 1.5 mg/dl (1.8-2.4); Potassium 3.5 mmol/L (3.5-5.1)
[2020-08-26] MEDS ORDERED: MAGNESIUM SULFATE / D5W 1 GM/100 ML BAG IV ONE (08:45)
[2020-08-26] MEDS: NICOTINE 14 MG/24 HR PATCH TD SCH (09:05)
[2020-08-26] MEDS: MULTIVITAMIN TAB PO SCH (09:07)
[2020-08-26] MEDS: DULoxetine HCL 30 MG CAP PO SCH ×2 (09:07→20:39)
[2020-08-26] MEDS: ENOXAPARIN INJ 30 MG/0.3 ML SYR SQ SCH (09:07)
[2020-08-26] MEDS: CYANOCOBALAMIN 500 MCG TABLET (VITAMIN B-12) PO SCH (09:09)
[2020-08-26] MEDS: GABAPENTIN 100 MG CAP PO SCH ×3 (09:09→20:39)
[2020-08-26] MEDS: PANTOprazole 40 MG TAB PO SCH (09:10)
[2020-08-26] MEDS: traMADol HCL 50 MG TABLET PO PRN ×2 (09:15→13:33)
[2020-08-26] MEDS: BUTALBITAL/ACETAMIN/CAFFEINE TAB PO PRN ×2 (09:16→13:32)
[2020-08-26] MEDS: cefTRIAXone SODIUM 2,000 MG in DEXTROSE 5% 50 ML IV SCH (09:20)
--- NOTE | 2020-08-26 16:55 | Hospitalist Progress Note ---
Date of Service August 26, 2020 Assessment & Plan (1) Abdominal pain: Abdominal Pain/Nausea/Vomiting nausea /vomiting has resolved, intermittent abdominal pain 'sharp/stabbing " DD: Gastroenteritis, malabsorption given history of bariatric surgery/irritable bowel syndrome CT ABD: No bowel obstruction or bowel wall thickening. Cholecystectomy with prior gastric bypass. Nonobstructing bilateral nephrolithiasis. Continue PPI Bentyl PRN -dose increased to 20 mg TID PRN ordered for Probiotics , PRN Imodium for loose stool /lactose free diet appreciated input from Dietary /Wharf Builder pt is encouraged to have small frequent meals instead of 3 large meals Appreciate GI input Outpatient EGD/Colonoscopy as per GI-pt wants to discuss with GI team to have the procedures done during her hospital stay will update GI team Hypokalemia Hypomagnesemia possible due to loose stool Replete electrolytes as needed Metabolic Encephalopathy resolved , mental status at baseline AA0x3 , conversing appropriately actively participates in treatment plan UTI uncomplicated Urine culture growing E. coli. 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 Specialty Follow-up: Gastroenterology follow up for out pt EGD /Colonoscopy Admission and Anticipated Discharge Date Admission Date: August 24, 2020 Subjective Follow up visit for abdominal pain : pt reports of nausea has resolved appetite fair complains of intermittent sharp pain on lower abdomen , not much relief with PRN Flexeril willing for increased dose -was on 10 mg TID PRN for abdominal pain , increased to 20 mg TID PRN had 4 episodes of loose stool today /normal bowel movement yesterday upset that GI team has recommended EGD and colonoscopy as out patient , wants to have the procedures done while she is in hospital now . pHs updated as her GI symptoms has improved , there is no urgent need for procedure to be done inpatient . Pt insists that her symptoms are not resolved, still having abdominal pain , diarrhea , will update GI team to discuss the options with pt in am Review of Systems Review of Systems: All systems reviewed & are unremarkable except as noted in Subjective Gastrointestinal: + abdominal pain and + diarrhea/loose stools Physical Exam Constitutional: WD/WN, vitals as above + thin Eyes: PERRL, conjunctivae normal, anicteric sclerae ENMT: external ear and nose normal, oropharynx normal Neck: trachea midline, no thyromegaly Respiratory: normal respiratory effort, lungs clear to auscultation Cardiovascular: RRR, no murmur, no edema Gastrointestinal (Abdomen): Inspection/Auscultation: normal bowel sounds and + abdominal surgical scar (mid abdomen , prior gastrectomy scar ) Percussion/Palpation: + abdomen tender (mild tenderness on left lower quadrant ) and abdomen soft Musculoskeletal: no cyanosis or clubbing, extremities motor strength 5/5 Skin: no rashes, warm and dry Neurologic: PERRL, EOMI, accommodation nl, no face palsy, no dysarthria Psychiatric: A+Ox3, euthymic affect Results & Data Results & Data ([facility]) Vital Signs (Past 12 Hours) Vital Signs Temp Pulse Resp BP Pulse Ox 08/26/20 14:56 37.3 C 85 18 116/78 95 08/26/20 07:41 37.1 C 76 14 101/69 97
[2020-08-26] MEDS: AMITRIPTYLINE HCL 25 MG TAB PO SCH (20:40)
[2020-08-26] MEDS ORDERED: LOPERAMIDE HCL 2 MG CAP PO PRN (23:35)
[2020-08-27 06:52] LABS: Hematocrit (blood only) 29.7 % (37-47); Hemoglobin 9.6 g/dL (12.0-16.0); Mean Corpuscular Hemoglobin 31.1 pg (25-34); Mean Corpuscular Hgb Conc 32.3 g/dL (32-36); Mean Corpuscular Volume 96.1 fL (80-100); Mean Platelet Volume 12.9 fL (7.4-10.4); Platelet Count 160 K/uL (130-400); RDW Coefficient of Variation 15.1 % (11.5-14.5); RDW Standard Deviation 52.6 fL (36.4-46.3); Red Blood Count 3.09 M/uL (4.2-5.4); White Blood Count 5.24 K/uL (4.8-10.8)
[2020-08-27 07:19] LABS: BUN Creatinine Ratio 20.6 (10-20); Calcium 8.4 mg/dl (8.5-10.1); Est GFR (African American) 90.7; Est GFR (Non-African American) 78.3; Magnesium 1.7 mg/dl (1.8-2.4); Potassium 3.6 mmol/L (3.5-5.1)
[2020-08-27] MEDS: NICOTINE 14 MG/24 HR PATCH TD SCH (08:51)
[2020-08-27] MEDS: DICYCLOMINE HCL 20 MG TAB PO PRN (08:53)
[2020-08-27] MEDS: MULTIVITAMIN TAB PO SCH (08:54)
[2020-08-27] MEDS: GABAPENTIN 100 MG CAP PO SCH ×3 (08:54→21:16)
[2020-08-27] MEDS: DULoxetine HCL 30 MG CAP PO SCH ×2 (08:54→21:15)
[2020-08-27] MEDS: CYANOCOBALAMIN 500 MCG TABLET (VITAMIN B-12) PO SCH (08:55)
[2020-08-27] MEDS: PANTOprazole 40 MG TAB PO SCH (08:55)
[2020-08-27] MEDS: ENOXAPARIN INJ 30 MG/0.3 ML SYR SQ SCH (09:02)
[2020-08-27 09:25] LABS: 7-Aminoclonaz, Confirm NEGATIVE ng/mL (<25); Hydro-Alp Ur, GC/MS 78 ng/mL (<25); Hydroxyethylflurazepam, Conf NEGATIVE ng/mL (<50); Hydroxymidazolam Ur, GC/MS NEGATIVE ng/mL (<50); Hydroxytriazolam NEGATIVE ng/mL (<50); Lorazepam, Ur GC/MS NEGATIVE ng/mL (<50); Nordiazepam, Confirm NEGATIVE ng/mL (<50); Oxazepam Ur, GC/MS NEGATIVE ng/mL (<50); Temazepam, Confirm NEGATIVE ng/mL (<50)
[2020-08-27] MEDS: cephALEXin 500 MG CAP PO SCH ×4 (09:44→21:14)
[2020-08-27] MEDS: ADVANCED PROBIOTIC 1250 MG CAPSULE PO SCH (09:44)
[2020-08-27] MEDS: PROMETHAZINE HCL 6.25 MG in SODIUM CHLORIDE 0.9% 50 ML IV PRN ×2 (11:02→19:45)
[2020-08-27] MEDS: traMADol HCL 50 MG TABLET PO PRN (11:23)
[2020-08-27] MEDS ORDERED: ONDANSETRON 4 MG OD TAB PO PRN (13:20)
--- NOTE | 2020-08-27 13:36 | Hospitalist Progress Note ---
Date of Service August 27, 2020 Assessment & Plan (1) Abdominal pain: Abdominal Pain/Nausea/Vomiting intractable nausea , no vomiting able to keep food done , but feels distended /bloating after eating Trying to have small snacks in between and keep meal portion small , intermittent abdominal pain 'sharp/stabbing " no intra abdominal pathology noted in imaging CT ABD: No bowel obstruction or bowel wall thickening. Cholecystectomy with prior gastric bypass. Nonobstructing bilateral nephrolithiasis. Bentyl PRN for muscle spasm -dose increased to 20 mg TID PRN ordered for Probiotics , PRN Imodium for loose stool /lactose free diet appreciated input from Dietary /Belt Knife Feeder pt is encouraged to have small frequent meals instead of 3 large meals pt may benefit with Gastric Emptying study was out pt will be seen by GI Outpatient EGD/Colonoscopy scheduled added Carafate for possible severe acid reflux syndrome causing nausea cont PRN Zofran /Phenergan for symptomatic tx Metabolic Encephalopathy resolved , mental status at baseline AA0x3 , conversing appropriately actively participates in treatment plan UTI uncomplicated Urine culture growing E. coli. 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 DVT Px: Lovenox SQ Code Status DNR/DNI Disposition Discharge Planning: Anticipated Discharge Date: tomorrow 08/28/20 Disposition: Home ,will benefit with home Physical therapy referral Hospital follow up : Dr Obdulio Forbes @ [facility] clinic will be scheduled Specialty Follow-up: Gastroenterology follow up for out pt EGD /Colonoscopy Admission and Anticipated Discharge Date Admission Date: August 24, 2020 Subjective Follow up visit for abdominal pain : pt is very tearful today feels " something is very wrong in my belly " , she is not getting any better Nausea persists , no vomiting sharp/stabbing intermittent abdominal pain unchanged , thinks a lot of these could be due to her stress ( going through divorce, worried about her work ) GI team spoke with patient this AM , pt is scheduled for GI clinic follow up and EGD/colonoscopy as out pt pt is agreeable with the plan feels very weak and tired , but does not want to go to rehab ( can not afford it , her insurance has high co-pay ) wants to return home tomorrow Review of Systems Review of Systems: All systems reviewed & are unremarkable except as noted in Subjective Gastrointestinal: + abdominal pain (sharp , intemittent lower abdomial pain ) and + nausea Physical Exam Constitutional: WD/WN, vitals as above + thin Eyes: PERRL, conjunctivae normal, anicteric sclerae ENMT: external ear and nose normal, oropharynx normal Neck: trachea midline, no thyromegaly Respiratory: normal respiratory effort, lungs clear to auscultation Cardiovascular: RRR, no murmur, no edema Gastrointestinal (Abdomen): Inspection/Auscultation: normal bowel sounds and + abdominal surgical scar (mid abdomen , prior gastrectomy scar ) Percussion/ Palpation: + abdomen tender (mild tenderness on left lower quadrant ) and abdomen soft Musculoskeletal: no cyanosis or clubbing, extremities motor strength 5/5 Skin: no rashes, warm and dry Neurologic: PERRL, EOMI, accommodation nl, no face palsy, no dysarthria Psychiatric: A+Ox3, euthymic affect Results & Data Results & Data ([facility]) Vital Signs (Past 12 Hours) Vital Signs Temp Pulse Resp BP Pulse Ox 08/27/20 07:25 37.3 C 77 19 104/69 96
[2020-08-27] MEDS: SUCRALFATE 1 GM/10 ML UDC PO SCH ×2 (16:32→19:50)
[2020-08-27] MEDS: AMITRIPTYLINE HCL 25 MG TAB PO SCH (21:15)
[2020-08-28] MEDS: GABAPENTIN 100 MG CAP PO SCH ×2 (08:20→13:14)
[2020-08-28] MEDS: SUCRALFATE 1 GM/10 ML UDC PO SCH ×2 (08:20→12:24)
[2020-08-28] MEDS: CALCITRIOL 0.25 MCG CAPSULE PO SCH (08:20)
[2020-08-28] MEDS: PANTOprazole 40 MG TAB PO SCH (08:20)
[2020-08-28] MEDS: NICOTINE 14 MG/24 HR PATCH TD SCH (08:21)
[2020-08-28] MEDS: cephALEXin 500 MG CAP PO SCH ×2 (08:21→12:24)
[2020-08-28] MEDS: ADVANCED PROBIOTIC 1250 MG CAPSULE PO SCH (08:21)
[2020-08-28] MEDS: DULoxetine HCL 30 MG CAP PO SCH (08:21)
[2020-08-28] MEDS: CYANOCOBALAMIN 500 MCG TABLET (VITAMIN B-12) PO SCH (08:21)
[2020-08-28] MEDS: DICYCLOMINE HCL 20 MG TAB PO PRN (08:22)
[2020-08-28] MEDS: MULTIVITAMIN TAB PO SCH (08:22)
[2020-08-28] MEDS: BUTALBITAL/ACETAMIN/CAFFEINE TAB PO PRN (10:56)
[2020-08-28] MEDS: traMADol HCL 50 MG TABLET PO PRN (10:57)
--- NOTE | 2020-08-28 13:35 | Discharge Summary ---
Date of Service August 28, 2020 Admission HPI Per Admitting Provider History obtained from patient and records. Medical history significant for chronic pain, history of bariatric surgery, migraine, intestinal malabsorption as per records, mood disorder, PFO as per records, chronic anemia (baseline hemoglobin 11), ongoing tobacco abuse. Last confinement June 2019 for chest pain. ACS ruled out. 1 month history of diarrhea symptoms more than usual, nonbloody, achy left-sided abdominal pain symptoms without fever, chills. Depression not the best, denies suicidality. No recent out-of-town travel, sick contacts, antibiotic Rx. Outpatient nutrition referral recommended by PCP. Patient noted worsening symptoms the last week. She thinks she may have lost 30 pounds in the last 3 months. Medical History as above 2013 EGD : Unremarkable post gastric bypass exam. 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 Principal Diagnosis Abdominal pain Acute renal failure due to dehydration -resolved severe protein calorie malnutrition Hx of Gastric Bypass Surgery ( Bariatric surgery ) UTI Discharge Exam Constitutional WD/WN, vitals as above + thin Eyes PERRL, conjunctivae normal, anicteric sclerae ENMT external ear and nose normal, oropharynx normal Neck trachea midline, no thyromegaly Respiratory normal respiratory effort, lungs clear to auscultation Cardiovascular RRR, no murmur, no edema Gastrointestinal (Abdomen) Inspection/Auscultation: normal bowel sounds and + abdominal surgical scar (mid abdomen , prior gastrectomy scar ) Percussion/Palpation: + abdomen tender (mild tenderness on left lower quadrant ) and abdomen soft Musculoskeletal no cyanosis or clubbing, extremities motor strength 5/5 Skin no rashes, warm and dry Neurologic PERRL, EOMI, accommodation nl, no face palsy, no dysarthria Psychiatric A+Ox3, euthymic affect Discharge Data Allergies Allergy/AdvReac Type Severity Reaction Status Date / Time Penicillins Allergy Unknown ? REACTION Verified 08/23/20 23:07 Sulfa (Sulfonamide Allergy Unknown Unknown Verified 08/23/20 23:07 Antibiotics) reaction aspirin AdvReac Mild No an Verified 08/23/20 23:07 allergy- cannot take post-bypass surgery ragweed pollen AdvReac Mild swelling Verified 08/23/20 23:07 Consultations 08/24/20 00:49 ED Decision to Admit Stat 08/24/20 03:48 Consult Gastroenterology Routine Ordered Studies 08/23/20 22:43 CT abd pelvis IV con only Urgent CT head/brain wo con Urgent Hospital Course (1) Abdominal pain: Abdominal Pain/Nausea/Vomiting intractable nausea , no vomiting symptoms has improved some what able to keep food done , but feels distended /bloating after eating Trying to have small snacks in between and keep meal portion small complained intermittent abdominal pain 'sharp/stabbing " no intra abdominal pathology noted in imaging CT ABD: No bowel obstruction or bowel wall thickening. Cholecystectomy with prior gastric bypass. Nonobstructing bilateral nephrolithiasis. Bentyl PRN for muscle spasm -dose increased to 20 mg TID PRN ordered for Probiotics , PRN Imodium for loose stool /lactose free diet appreciated input from Dietary /Awning Finisher pt is encouraged to have small frequent meals instead of 3 large meals pt may benefit with Gastric Emptying study was out pt will be seen by GI Outpatient EGD/Colonoscopy scheduled added Carafate for possible severe acid reflux syndrome causing nausea -pt reports improvement of nausea script for Carafate sent to Pharmacy Metabolic Encephalopathy presented with confusion , lethargy -due to UTI/dehydration /Acute renal failure resolved , mental status at baseline AA0x3 , conversing appropriately actively participates in treatment plan UTI uncomplicated Urine culture : E. coli. received IV Rocephin while in patient discharged on PO keflex Acute kidney injury possibly ATN due to dehydration : Nausea /vomiting /UTI resolved with IV fluids d/c Meloxicam ( home med) Renal function normalized pt is asked to avoid NSAID's in future H/O Multiple Falls hx of neuropathy causing gait disturbance Follows with -neurology Left Adnexal Cyst Incidental finding on CT OBGYN follow up as outpatient Mood disorder stable Continue home meds Severe Protein Calorie Malnutrition BMI:19 dietary /anesthesiologist/physician consulted ,appreciate input Outpatient EGD/Colonoscopy scheduled on 10/08/20 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 DVT Px: Lovenox SQ Code Status DNR/DNI Discharge Planning: Discharge Date: today 08/28/20 Disposition: Home Hospital follow up : Dr Obdulio Forbes @ [facility] scheduled Specialty Follow-up: Gastroenterology for out pt EGD /Colonoscopy on 10/08/20 Total Time Total Time Spent Total Time Spent (In Minutes): 40 mins Discharge Plan Discharge Items Patient Disposition: Home - Self-Care Reason For Visit: ARF Discharge Diagnosis: Abdominal pain Acute renal failure due to dehydration -resolved severe protein calorie malnutrition Hx of Gastric Bypass Surgery ( Bariatric surgery ) UTI Activity: As commented below Non-emergency contact: Primary Care Provider Call non-emergency contact if: you have any medication questions Follow-up/Referrals: Milind Yadav MD [Physician] - 10/08/20 (EGD/Colonoscopy ) Evelyn Andrews MD [Primary Care Provider] - 09/01/20 12:00 pm (Date & Time 09/01/2020 12:00 PM Provider Evelyn Forbes MD Department Internal Medicine [facility] ) Diet: Low Fiber and Lactose Intolerant Addtl Attending Provider Instructions: Please take all medications as instructed on discharge list below. Follow up with Gastroenterology in clinic You are scheduled for EGD /Colonoscopy on 10/08/20 Please call if you have any questions or problems. You can reach a [facility] hospitalist on duty at [facility] 24 hours a day by calling [phone] It is Very important for you health to Quit Smoking Tobacco -smoking Stop taking meloxicam avoid group of medications belonging to NSAIDs group - can cause worsening of your kidney function. List Of these medications includes but not limited to: Aspirin Diclofenac Ibuprofen, Motrin, Advil Toradol,ketorolac Naproxen, Aleve, Naprosyn You can take Tylenol as needed for pain or fever When buying [id number] pain medications please consult with pharmacy if you are not sure regarding ingredients, as a lot of the pain medications have combination of NSAIDs and Tylenol. Pending Studies at Discharge: No Stand-Alone Forms: [facility], Smoking Cessation Medications and DC Order Prescriptions: New dicyclomine 20 mg Tablet 20 mg PO TID PRN (Reason: Muscle Spasm) Qty: 90 RF: 0 Advanced Probiotic 625 mg (10 billion cell) Capsule 2 cap PO DAILY Qty: 0 RF: 0 cephalexin 500 mg Capsule 500 mg PO QID 3 Days Qty: 12 RF: 0 sucralfate [Carafate] 100 mg/mL suspension 1 g PO Q6H 28 Days Qty: 1120 RF: 3 Continued amitriptyline 25 mg tablet 25 mg PO HS RF: 0 rizatriptan 10 mg tablet 10 mg PO DAILY PRN (Reason: Migraines) RF: 0 fremanezumab-vfrm 225 mg/1.5 mL syringe 225 mg SQ MONTHLY RF: 0 sumatriptan succinate [Imitrex] 100 mg tablet 50 mg PO UD PRN (Reason: Migraines) RF: 0 omega-3 fatty acids 1,000 mg capsule 1,000 mg PO DAILY RF: 0 ondansetron HCl [Zofran] 4 mg tablet 4 mg PO Q8H PRN (Reason: nausea and vomiting) RF: 0 tizanidine 4 mg tablet 2 mg PO BID PRN (Reason: Migraine Headache) RF: 0 tramadol 50 mg Tablet 50 mg PO Q8H PRN (Reason: Pain) Qty: 0 RF: 0 ergocalciferol (vitamin D2) 50,000 unit Capsule 50,000 unit PO WK Qty: 0 RF: 0 cyanocobalamin (vitamin B-12) 1,000 mcg/mL Solution 1 dose IM MONTHLY Qty: 0 RF: 0 diphenoxylate-atropine [Lomotil] 2.5-0.025 mg Tablet 1 tab PO QID PRN (Reason: Diarrhea) Qty: 0 RF: 0 gabapentin [Neurontin] 100 mg capsule 300 mg PO TID Qty: 0 RF: 0 hydrocodone-acetaminophen 5-325 mg tablet 1 tab PO DAILY PRN (Reason: Severe Pain (Scale Score 7-10)) RF: 0 calcitriol 0.25 mcg Capsule 0.25 mcg PO MOWEFR RF: 0 acetaminophen 500 mg tablet 500 mg PO Q4H PRN (Reason: Pain) RF: 0 psqjasikkc-wtbpmvbhluqrk-krqh 50-325-40 mg tablet 1 tab PO Q6H PRN (Reason: Pain) RF: 0 alprazolam 0.25 mg tablet 0.25 mg PO DAILY PRN (Reason: Anxiety) RF: 0 calcium carbonate [Oysco-500] 500 mg calcium (1,250 mg) tablet 1,000 mg PO DAILY RF: 0 duloxetine 30 mg capsule,delayed release(DR/EC) 30 mg PO BID RF: 0 Discontinued meloxicam 15 mg tablet 7.5 - 15 mg PO DAILY PRN (Reason: Pain) RF: 0 Discharge Orders: Discharge Order (Routine); Ordered 08/28/20 Ordered By: Suzanne Hester/Other Patient Handouts: Abdominal Pain, Complementary Care for Pain, Communicating About Pain Admission Data Admit Date/Time: 08/24/20 02:12 Attending Provider: Suzanne Barahona Admit Provider: Luis Ren Primary Care Provider: Evelyn Andrews Other Providers: Luis Ren ; Nasra Perez ; Porsche Salas ; Lakhwinder Natarajan ; Jeanette Miller ; Benson Oates ; Leonor Rondon ; Milind Yadav ; Tj Quarles ; Howard Riojas ; Pam Velarde ; Oneida Gonsales ; Fawn Sykes ; Thuy Burton ; Leyda Garcia ; Gallo Sandoval Other Interventions: Discharge Summary Assessment (RN) Last Done: 08/28/20 12:11
== END 2020-08-28 15:04 | disposition home or self-care (01) ==
LOC: ED 22:08 → SUATTDRO 08-24 02:12 → 3W 08-24 02:12

== ENCOUNTER 2020-09-15 10:59 | Inpatient (IN) ==
[2020-09-15] MEDS ORDERED: SODIUM CHLORIDE 0.9% 1000ML 1,000 ML IV SCH (12:00)
--- NOTE | 2020-09-15 12:11 | XRay Report ---
XR chest 1V portable CLINICAL HISTORY: SEPSIS COMPARISON STUDY: August 23, 2020 FINDINGS: There is thoracolumbar scoliosis. The heart is normal in size. There is no failure. There i s no focal pulmonary consolidation. There are no pleural effusions.[ IMPRESSION: Scoliosis. No acute findings. ACT 112: Negative or not required by law. Electronically signed by: Benjamin Naqvi M.D. 09/15/2020 12:09 PM
[2020-09-15 13:16] LABS: Basophils # (auto) 0.04 K/uL (0-0.2); Basophils % (auto) 0.5 %; Eosinophils # (auto) 0.13 K/uL (0-0.5); Eosinophils % (auto) 1.5 %; Hematocrit (blood only) 30.8 % (37-47); Hemoglobin 10.1 g/dL (12.0-16.0); Immature Granulocytes # (auto) 0.01 K/uL (0.00-0.02); Immature Granulocytes % (auto) 0.1 %; Lymphocytes # (auto) 2.16 K/uL (1.2-3.4); Lymphocytes % (auto) 25.6 %; Mean Corpuscular Hemoglobin 31.5 pg (25-34); Mean Corpuscular Hgb Conc 32.8 g/dL (32-36); Mean Platelet Volume 12.4 fL (7.4-10.4); Monocytes # (auto) 0.44 K/uL (0.11-0.59); Monocytes % (auto) 5.2 %; Neutrophils # (auto) 5.65 K/uL (1.4-6.5); Neutrophils % (auto) 67.1 %; Platelet Count 217 K/uL (130-400); RDW Coefficient of Variation 15.1 % (11.5-14.5); RDW Standard Deviation 53.5 fL (36.4-46.3); Red Blood Count 3.21 M/uL (4.2-5.4); White Blood Count 8.43 K/uL (4.8-10.8)
[2020-09-15 13:33] LABS: Alanine Aminotransferase 16 U/L (12-78); Albumin Level 2.4 gm/dl (3.4-5.0); Aspartate Aminotransferase 10 U/L (15-37); BUN Creatinine Ratio 26.9 (10-20); Blood Urea Nitrogen 23 mg/dl (7-18); Calcium 6.7 mg/dl (8.5-10.1); Carbon Dioxide 18 mmol/L (21-32); Chloride 119 mmol/L (98-107); Creatinine Clr Calc Pharmacy 46.6 ml/min; Est GFR (African American) 86.9; Glucose 72 mg/dl (70-99); Magnesium 1.1 mg/dl (1.8-2.4); Potassium 3.2 mmol/L (3.5-5.1); Sodium 145 mmol/L (136-145)
[2020-09-15 13:36] LABS: Albumin Globulin Ratio 0.9 (0.9-2); Alkaline Phosphatase 75 U/L (45-117); Bilirubin,Total 0.2 mg/dl (0.2-1); Globulin 2.8 gm/dl (2.5-4.0); Total Protein 5.2 gm/dl (6.4-8.2); Troponin I < 0.015 ng/ml (0-0.045)
[2020-09-15] MEDS ORDERED: POTASSIUM CHLORIDE CRTAB 20 MEQ TABCR PO STA (14:40)
--- NOTE | 2020-09-15 14:40 | Electrocardiogram Report ---
Test Reason : Blood Pressure : / mmHG Vent. Rate : 072 BPM Atrial Rate : 072 BPM P-R Int : 136 ms QRS Dur : 082 ms QT Int : 396 ms P-R-T Axes : 058 -02 035 degrees QTc Int : 433 ms Poor data quality, interpretation may be adversely affected Normal sinus rhythm Low voltage QRS Poor R wave progression, consider anterior SD vs. lead placement vs. LVH Abnormal ECG When compared with ECG of 23-AUG-2020 22:27, Nonspecific T wave abnormality, improved in Inferior leads Nonspecific T wave abnormality, improved in Anterolateral leads Confirmed by Vic Cuba ([id number] on 09/15/2020 2:40:15 PM Referred By: REFERRED SELF Confirmed By:Deven Cuba
[2020-09-15 15:00] LABS: INR 1.1 (0.9-1.1); Partial Thromboplastin Time 26.5 Seconds (21.0-31.0); Prothrombin Time 11.3 Seconds (9.0-12.0)
[2020-09-15] MEDS ORDERED: ACETAMINOPHEN 325 MG TAB PO PRN (15:10)
[2020-09-15] MEDS ORDERED: POLYETHYLENE (MIRALAX) 17 GM PACK PO PRN (15:10)
--- NOTE | 2020-09-15 15:50 | History & Physical Report ---
Date of Service September 15, 2020 Assessment & Plan (1) Hypotension: Hypotension dizziness This is a 55-year-old female who has significant past medical history of gastric bypass, mild protein calorie malnutrition, siddhartha deficiency, b12 def, scoliosis, chronic pain syndrome, idiopathic peripheral neuropathy, depression, hyperparathyroidism, PFO Who presents to ED at referral of pain management clinic secondary to dizziness and hypotension during appointment. Likely in setting of recent diarrhea complicated by history of gastric bypass Dehydration improved with administration of IVF admit to medical with tele continue IVF 100cc/hr + 20meq KCL monitor renal function follow orthostatics hypokalemia, hypomagnesemia, hypocalcemia, hyperchloremia 3g mag sulfate ordered 40meq KCL oral ordered continue oral calcium supplements follow labs Diarrhea Recent Antibiotic use - 07/28 to e.coli UTI with IV rocephin, oral keflex and macrobid hx of malabsorption in setting of gastric bypass obtain stool culture and stool for cdiff avoid antibiotics if able probiotics Chronic abdominal pain continue increased bentyl, carafate follows GI - to have EGD/Colonoscopy 10/08 history of gastric bypass continue b12 injections chronic anemia H/H stable at 10.1 and 30.8 no s/sx of bleeding monitor 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 Barahona, please see addendum History of Present Illness Chief Complaint: Hypotensive at pain management appt and referred to ED. Primary Care Provider: Evelyn Forbes MD This is a 55-year-old female who has significant past medical history of gastric bypass, mild protein calorie malnutrition, siddhartha deficiency, b12 def, scoliosis, chronic pain syndrome, idiopathic peripheral neuropathy, depression, hyperparathyroidism, PFO Who presents to ED at referral of pain management clinic secondary to dizziness and hypotension during appointment. She presented to pain management today for Botox injections and was complaining of dizziness. Her systolic blood pressure was noted to be in her 60s. IV was established and she received IV fluid with minimal improvement in systolic blood pressure to 70s. She continued to complain of dizziness and was referred to ED. Of significance patient was recently hospitalized 08/24 to 08/28/2020 secondary to acute uncomplicated E. coli UTI, altered mental status and ROBINSON. She was treated with IV Rocephin and transition to oral Keflex. ROBINSON improved with supportive hydration. It was recommended she avoid NSAIDs. She also complained of abdominal pain and was seen and evaluated by GI. She is scheduled for outpatient colonoscopy and EGD on 10/08. Bentyl was increased to 20 mg 3 times daily. She typically does experience chronic diarrhea. She was seen and evaluated for hospital follow-up and complained of dysuria. She had urinalysis obtained and was started on Macrobid. Urinalysis did not grow anything significant. Approximately 2 days ago she developed acute diarrhea. She woke up the past 2 days with her bed entirely soiled which she had never done before. This is much different than her usual diarrhea and it was much more foul- smelling. She denied any abdominal cramping with it. She did have episode of nausea 2 days ago but no vomiting. She complains of feeling cold but denies any documented fever sweats, chest pain, shortness of breath, cough, URI symptoms, abdominal pain, change in urinary habits. She does admit to lightheadedness and dizziness with standing, but has not been out of bed since ED so is unsure if this is improved. In ED patient was hypotensive. She received 1 L of IV fluid. She was found to have hypokalemia, hyperchloremia, elevated BUN 23, corrected calcium 8.0, mag 1.1, albumin 2.4. Her blood pressure did improve after IV hydration. She was unable to provide stool sample and given significant hypotension she was recommended for admission. Allergies Allergy/AdvReac Type Severity Reaction Status Date / Time Penicillins Allergy Unknown ? REACTION Verified 09/15/20 12:51 Sulfa (Sulfonamide Allergy Unknown Unknown Verified 09/15/20 12:51 Antibiotics) reaction aspirin AdvReac Mild No an Verified 09/15/20 12:51 allergy- cannot take post-bypass surgery ragweed pollen AdvReac Mild swelling Verified 09/15/20 12:51 Home Medications Medication Instructions Recorded Confirmed Type tramadol 50 mg PO Q8H PRN #0 tab 03/29/13 09/15/20 History ergocalciferol (vitamin D2) 50,000 unit PO WK #0 cap 11/26/13 09/15/20 History cyanocobalamin (vitamin B-12) 1 dose IM MONTHLY #0 06/11/14 09/15/20 History diphenoxylate-atropine [Lomotil] 1 tab PO QID PRN #0 tab 08/02/16 09/15/20 History amitriptyline 25 mg tablet 25 mg PO HS tab 11/06/18 09/15/20 History rizatriptan 10 mg tablet 10 mg PO DAILY PRN tab 11/06/18 09/15/20 History fremanezumab-vfrm 225 mg/1.5 mL 225 mg SQ MONTHLY ml 04/15/19 09/15/20 History subcutaneous syringe alprazolam 0.25 mg PO DAILY PRN 06/28/19 09/15/20 History crzhrvvenc-ghsrpdqtkhany-gsbe 1 tab PO Q6H PRN 06/28/19 09/15/20 History calcium carbonate [Oysco-500] 1,000 mg PO DAILY 06/28/19 09/15/20 History omega-3 fatty acids 1,000 mg 1,000 mg PO DAILY 07/25/19 09/15/20 History capsule duloxetine 30 mg capsule,delayed 30 mg PO BID cap 10/29/19 09/15/20 History release gabapentin 100 mg capsule 300 mg PO TID #0 cap 10/29/19 09/15/20 History ondansetron HCl 4 mg tablet 4 mg PO Q8H PRN 10/29/19 09/15/20 History tizanidine 4 mg tablet 2 mg PO BID PRN 10/29/19 09/15/20 History acetaminophen 500 mg PO Q4H PRN 08/23/20 09/15/20 History calcitriol 0.25 mcg PO MOWEFR 08/23/20 09/15/20 History hydrocodone-acetaminophen 1 tab PO DAILY PRN 08/23/20 09/15/20 History dicyclomine 20 mg PO TID PRN #90 tab 08/26/20 09/15/20 Rx sucralfate [Carafate] 1 g PO Q6H 28 Days #1120 ml 08/27/20 09/15/20 Rx Past Med/Surg History Medical History Anemia Copper deficiency Malabsorption Migraine headache Zinc poisoning Surgical History History of bowel diversion surgery History of cholecystectomy History of gastric bypass Hx of cardiac cath jul 01 2019 Family History Mother Coronary heart disease Social History (Updated 09/15/20 @ 16:12 by Nadiya Mayers PA-C) Smoking Status: Current every day smoker packs per day: 1; Cigarettes Per Day: 20-30; Second Hand Exposure: Yes; Hx Alcohol Use: No Hx Substance Use: No Preferred Language: [place] Communication Ability: Effective Visual Impairment: No Limitations Hearing Ability: Normal Party Plan Salesperson Required: No Beliefs That Will Affect Care: None marital status: Current Living Situation: Spouse current occupational status: disabled 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- [employer] Feels Safe at Home: Hesitant to Answer Assistive Devices: Cane, Glasses and Walker Review of Systems Review of Systems: All systems reviewed & are unremarkable except as noted in HPI & below Physical Exam Physical Exam: Constitutional: Thin, fraile, F, vitals as above, NAD, sitting up in bed, pleasant, conversing easily Head: Normocephalic, Atraumatic Eyes: PERRL, conjunctivae normal, anicteric sclerae ENMT: external ear and nose normal, oropharynx normal Neck: trachea midline, no thyromegaly normal visual inspection Respiratory: normal respiratory effort, lungs clear to auscultation, no wheeze, rales, rhonchi. Normal insp/exp effort, no accessory muscle use Cardiovascular: RRR, no murmur, no edema Vessels: no JVD or carotid bruit Chest: normal inspection of chest Abdomen: normal bowel sounds, soft, nontender, no hepatosplenomegaly Musculoskeletal: no cyanosis or clubbing, extremities motor strength 5/5 Skin: no rashes, warm and dry normal turgor Neurologic: PERRL, EOMI, accommodation nl, no face palsy, no dysarthria CN's II-XI intact bilaterally and moves all extremities Psychiatric: A+Ox3, euthymic affect Lymphatic: no cervical or axillary lymphadenopathy : deferred Results & Data Results & Data ([facility]) Vital Signs (Past 12 Hours) Vital Signs Temp Pulse Resp BP Pulse Ox 09/15/20 14:46 73 18 09/15/20 14:45 69 16 107/85 09/15/20 14:31 79 16 09/15/20 14:30 72 16 97/63 L 09/15/20 14:18 75 20 104/66 09/15/20 14:15 78 17 09/15/20 14:01 69 13 93/62 L 98 09/15/20 14:00 69 13 98 09/15/20 13:45 86 18 98 09/15/20 13:42 75 12 98 09/15/20 13:41 69 16 94/62 L 99 09/15/20 13:30 63 13 97 09/15/20 13:15 65 16 99 09/15/20 13:00 65 12 99 09/15/20 12:45 67 16 100 09/15/20 12:30 70 13 99 09/15/20 12:16 71 20 100 09/15/20 12:15 66 14 108/71 99 09/15/20 12:01 67 13 99 09/15/20 12:00 91 H 14 98/62 L 99 09/15/20 11:46 70 14 99 09/15/20 11:45 72 14 100/65 99 09/15/20 11:41 85 17 92/66 L 98 09/15/20 11:35 87 15 100 09/15/20 11:30 70 17 96/65 L 98 09/15/20 11:13 36.7 C 78 16 95/64 L 100 Diagnostic Findings CXR: IMPRESSION: Scoliosis. No acute findings. Medications Administered Discontinued Medications Sodium Chloride (Nss 1000ml) 1,000 mls @ 999 mls/hr IV .Q1H1M ALEKS Stop: 09/15/20 13:00 Last Infusion: 09/15/20 13:16 Dose: 0 mls/hr Documented by: [id number] Admin: 09/15/20 12:08 Dose: 999 mls/hr Documented by: [id number] Potassium Chloride (Potassium Chloride Crtab 20 Meq Tabcr) 40 meq PO NOW STA Stop: 09/15/20 14:41 Last Admin: 09/15/20 15:25 Dose: Not Given Documented by: [id number] ECG Rate (beats per minute): 72 Rhythm: normal sinus COVID-19 Results Results COVID-19 Adm Lab Results: RBC 3.21 M/uL (4.2-5.4) L 09/15/20 WBC 8.43 K/uL (4.8-10.8) 09/15/20 Hgb 10.1 g/dL (12.0-16.0) L 09/15/20 Hct 30.8 % (37-47) L 09/15/20 Plt Count 217 K/uL (130-400) 09/15/20 Neutrophils (%) (Auto) 67.1 % 09/15/20 Lymphocytes (%) (Auto) 25.6 % 09/15/20 Monocytes # (Auto) 0.44 K/uL (0.11-0.59) 09/15/20 Eosinophils # (Auto) 0.13 K/uL (0-0.5) 09/15/20 Immature Granulocyte % (Auto) 0.1 % 09/15/20 Neutrophils # (Auto) 5.65 K/uL (1.4-6.5) 09/15/20 Lymphocytes # (Auto) 2.16 K/uL (1.2-3.4) 09/15/20 Monocytes # (Auto) 0.44 K/uL (0.11-0.59) 09/15/20 Eosinophils # (Auto) 0.13 K/uL (0-0.5) 09/15/20 Basophils # (Auto) 0.04 K/uL (0-0.2) 09/15/20 Immature Granulocyte # (Auto) 0.01 K/uL (0.00-0.02) 09/15/20 Na 145 mmol/L (136-145) 09/15/20 K 3.2 mmol/L (3.5-5.1) L 09/15/20 Cl 119 mmol/L (98-107) H 09/15/20 CO2 18 mmol/L (21-32) L 09/15/20 Anion Gap 8.0 (3-11) 09/15/20 BUN 23 mg/dl (7-18) H 09/15/20 Creatinine 0.86 mg/dl (0.6-1.2) 09/15/20 BUN/Creatinine Ratio 26.9 (10-20) H 09/15/20 Glucose Level 72 mg/dl (70-99) 09/15/20 Ca 6.7 mg/dl (8.5-10.1) L 09/15/20 Total Bilirubin 0.2 mg/dl (0.2-1) 09/15/20 AST/SGOT 10 U/L (15-37) L 09/15/20 ALT/SGPT 16 U/L (12-78) 09/15/20 Alkaline Phosphatase 75 U/L (45-117) 09/15/20 Total Protein 5.2 gm/dl (6.4-8.2) L 09/15/20 Albumin 2.4 gm/dl (3.4-5.0) L 09/15/20 Globulin 2.8 gm/dl (2.5-4.0) 09/15/20 Albumin/Globulin Ratio 0.9 (0.9-2) 09/15/20 Troponin I < 0.015 ng/ml (0-0.045) 09/15/20 Procalcitonin < 0.05 ng/ml (0-0.5) 09/15/20 PTT 26.5 Seconds (21.0-31.0) 09/15/20 INR 1.1 (0.9-1.1) 09/15/20 Chest X-Ray 09/15/20 Code Status & VTE Plan Code Status Full Code VTE Prophylaxis Plan VTE Prophylaxis will be ordered: Yes
--- NOTE | 2020-09-15 16:26 | Emergency Department Note ---
Impression & Plan Acute hypotension, Hypokalemia, Diarrhea ED Provider Note INFORMANT: Patient ED PROVIDER(S): Aris Burroughs MD CHIEF COMPLAINT: Hypotension PLAN: Disposition: Admitted Condition: Good Outpatient prescription management: none Referral: None MEDICAL DECISION MAKING: Patient had significant hypotension. She has noted multiple episodes of explosive diarrhea. There was concerns for C. difficile. Testing was ordered. The patient was unable to give a sample initially in the emergency department. She was hydrated with IV fluids. IV fluids did well to reverse the hypotension. She had mild hypokalemia and this was repleted. Given concerns for the severe diarrhea and her hypotension further management in the hospital was felt to be appropriate. Consultation was made with the [facility] service. The patient was evaluated by the team in the ER and admitted for further management. Triage Nursing notes reviewed and agree them. Prior medical records reviewed Vital Signs: reviewed and remarkable for hypotension Differential diagnosis: Infection, dehydration, metabolic abnormality, hypo/hyperglycemia, electrolyte disturbance, anemia, hypoxia, cardiac sources, intracerebral event, toxicologic, neurologic, as well as other pathologies. Diagnostics interpreted by me: ECG: Twelve-lead ECG reveals normal sinus rhythm at 72 bpm. Low voltage QRS. Poor R wave progression. No ST elevation or depression. No PACs or PVCs. Normal axis. Cardiac Monitoring:Cardiac monitoring ordered by me: The patient was placed on continuous cardiac monitoring and observed. It revealed a normal sinus rhythm at 73 beats per minute without ectopy or evidence of dysrhythmia. Imaging studies: Deferred HPI: The patient is a 55 year old female who presents to the Emergency Room with complaints of hypertension. This started today and is improving. The patient also notes the following associated symptoms, lightheadedness, near syncope, and diarrhea. The patient has been given IV fluids by EMS for relieving factors. Current pain is rated as 0/10. Patient notes she was on an antibiotic for UTI. She developed explosive diarrhea yesterday today. This is unusual for her. She was going to her medical clinic appointment and became very lightheaded. She was checked in and was found to have a blood pressure approximately 60/40. EMS was summoned. She was treated with IV fluids. Upon arrival her blood pressure was in the 90s. She was feeling better. Pt denies LOC, headache, fevers, chills, diaphoresis, visual changes, neck pain, chest pain, breathing difficulties, nausea, vomiting, abdominal pain, back pain, melena, hematochezia, urinary symptoms, numbness, focal weakness, lymphadenopathy, rash, or other complaints. ROS: See above HPI for pertinent positives & negatives. A total of 10 systems reviewed and were otherwise negative. PAST MEDICAL HISTORY:See Below , UTI, migraine PAST SURGICAL HISTORY:See Below, gastric bypass FAMILY HISTORY:See Below SOCIAL HISTORY:See Below, non-smoker HOME MEDICATIONS:See Below ALLERGIES:See Below VITALS:See Below PHYSICAL EXAMINATION: GENERAL: Awake, alert, nontoxic appearing, in no distress HENT: Normocephalic, atraumatic. Oropharynx unremarkable. EYES: Normal conjunctiva. Sclera non-icteric. NECK: Inspection normal. Non-tender. Supple. No nuchal rigidity. FROM. No masses. RESPIRATORY: Clear to auscultation. No wheezes. No rales. Normal respiratory effort. CARDIAC: Normal rate. Normal rhythm. No murmurs. No rubs. Extremities warm and well perfused. Pulses equal. No JVD. GI: Soft, non-distended. No tenderness to palpation. No rebound or guarding. No masses. RECTAL: Deferred. MUSCULOSKELETAL: Atraumatic. Chest examination reveals no tenderness. The back is symmetrical on inspection without obvious abnormality. There is no CVA ten derness to palpation. No joint edema. LOWER EXTREMITIES: Calves are equal size bilaterally and non-tender. No edema. No discoloration. NEURO: Normal sensorium. No sensory or motor deficits noted. SKIN: No rash or jaundice noted. Aris Burroughs MD Past Med/Surg History Medical History (Updated 09/15/20 @ 16:23 by Aris Burroughs MD) Anemia Copper deficiency Malabsorption Migraine headache Zinc poisoning Surgical History History of bowel diversion surgery History of cholecystectomy History of gastric bypass Hx of cardiac cath jul 01 2019 Family History Mother Coronary heart disease Social History (Updated 09/15/20 @ 16:12 by Nadiya Mayers PA-C) Smoking Status: Current every day smoker packs per day: 1; Cigarettes Per Day: 20-30; Second Hand Exposure: Yes; Hx Alcohol Use: No Hx Substance Use: No Preferred Language: Kyrgyz Communication Ability: Effective Visual Impairment: No Limitations Hearing Ability: Normal Java Engineer Required: No Beliefs That Will Affect Care: None marital status: Current Living Situation: Spouse current occupational status: disabled 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 REACTION Verified 09/15/20 12:51 Sulfa (Sulfonamide Allergy Unknown Unknown Verified 09/15/20 12:51 Antibiotics) reaction aspirin AdvReac Mild No an Verified 09/15/20 12:51 allergy- cannot take post-bypass surgery ragweed pollen AdvReac Mild swelling Verified 09/15/20 12:51 Home Meds Home Medications Medication Instructions Recorded Confirmed tramadol 50 mg PO Q8H PRN #0 tab 03/29/13 09/15/20 ergocalciferol (vitamin D2) 50,000 unit PO WK #0 cap 11/26/13 09/15/20 cyanocobalamin (vitamin B-12) 1 dose IM MONTHLY #0 06/11/14 09/15/20 diphenoxylate-atropine [Lomotil] 1 tab PO QID PRN #0 tab 08/02/16 09/15/20 amitriptyline 25 mg tablet 25 mg PO HS tab 11/06/18 09/15/20 rizatriptan 10 mg tablet 10 mg PO DAILY PRN tab 11/06/18 09/15/20 fremanezumab-vfrm 225 mg/1.5 mL 225 mg SQ MONTHLY ml 04/15/19 09/15/20 subcutaneous syringe alprazolam 0.25 mg PO DAILY PRN 06/28/19 09/15/20 nabihoydxu-xmzktmhqoozzi-ffvw 1 tab PO Q6H PRN 06/28/19 09/15/20 calcium carbonate [Oysco-500] 1,000 mg PO DAILY 06/28/19 09/15/20 omega-3 fatty acids 1,000 mg 1,000 mg PO DAILY 07/25/19 09/15/20 capsule duloxetine 30 mg capsule,delayed 30 mg PO BID cap 10/29/19 09/15/20 release gabapentin 100 mg capsule 300 mg PO TID #0 cap 10/29/19 09/15/20 ondansetron HCl 4 mg tablet 4 mg PO Q8H PRN 10/29/19 09/15/20 tizanidine 4 mg tablet 2 mg PO BID PRN 10/29/19 09/15/20 acetaminophen 500 mg PO Q4H PRN 08/23/20 09/15/20 calcitriol 0.25 mcg PO MOWEFR 08/23/20 09/15/20 hydrocodone-acetaminophen 1 tab PO DAILY PRN 08/23/20 09/15/20 Previous Rx's Medication Instructions Recorded dicyclomine 20 mg PO TID PRN #90 tab 08/26/20 sucralfate [Carafate] 1 g PO Q6H 28 Days #1120 ml 08/27/20 Results & Data (ED) Vital Signs Vital Signs - 24 hr 09/15/20 11:13 09/15/20 11:30 09/15/20 11:35 Temperature 36.7 C Temperature Source Oral Pulse Rate 78 70 87 Pulse Rate from SpO2 Sensor 70 71 Respiratory Rate 16 17 15 Respiratory Depth Normal Blood Pressure 95/64 L 96/65 L Blood Pressure Mean 74 75 Blood Pressure Position Sitting Pulse Oximetry 100 98 100 Oxygen Delivery Method Room Air Sepsis Recent Fever Within 48 Hours No Sepsis New/Unexplained Change in Mental Status Yes Sepsis Action Taken by Nursing No Action Required 09/15/20 11:41 09/15/20 11:45 09/15/20 11:46 Temperature Temperature Source Pulse Rate 85 72 70 Pulse Rate from SpO2 Sensor 79 72 71 Respiratory Rate 17 14 14 Respiratory Depth Blood Pressure 92/66 L 100/65 Blood Pressure Mean 74 76 Blood Pressure Position Pulse Oximetry 98 99 99 Oxygen Delivery Method Sepsis Recent Fever Within 48 Hours Sepsis New/Unexplained Change in Mental Status Sepsis Action Taken by Nursing 09/15/20 12:00 09/15/20 12:01 09/15/20 12:15 Temperature Temperature Source Pulse Rate 91 H 67 66 Pulse Rate from SpO2 Sensor 70 68 67 Respiratory Rate 14 13 14 Respiratory Depth Blood Pressure 98/62 L 108/71 Blood Pressure Mean 74 83 Blood Pressure Position Pulse Oximetry 99 99 99 Oxygen Delivery Method Sepsis Recent Fever Within 48 Hours Sepsis New/Unexplained Change in Mental Status Sepsis Action Taken by Nursing 09/15/20 12:16 09/15/20 12:30 09/15/20 12:45 Temperature Temperature Source Pulse Rate 71 70 67 Pulse Rate from SpO2 Sensor 74 67 66 Respiratory Rate 20 13 16 Respiratory Depth Blood Pressure Blood Pressure Mean Blood Pressure Position Pulse Oximetry 100 99 100 Oxygen Delivery Method Sepsis Recent Fever Within 48 Hours Sepsis New/Unexplained Change in Mental Status Sepsis Action Taken by Nursing 09/15/20 13:00 09/15/20 13:15 09/15/20 13:30 Temperature Temperature Source Pulse Rate 65 65 63 Pulse Rate from SpO2 Sensor 66 66 63 Respiratory Rate 12 16 13 Respiratory Depth Blood Pressure Blood Pressure Mean Blood Pressure Position Pulse Oximetry 99 99 97 Oxygen Delivery Method Sepsis Recent Fever Within 48 Hours Sepsis New/Unexplained Change in Mental Status Sepsis Action Taken by Nursing 09/15/20 13:41 09/15/20 13:42 09/15/20 13:45 Temperature Temperature Source Pulse Rate 69 75 86 Pulse Rate from SpO2 Sensor 68 71 84 Respiratory Rate 16 12 18 Respiratory Depth Blood Pressure 94/62 L Blood Pressure Mean 72 Blood Pressure Position Pulse Oximetry 99 98 98 Oxygen Delivery Method Sepsis Recent Fever Within 48 Hours Sepsis New/Unexplained Change in Mental Status Sepsis Action Taken by Nursing 09/15/20 14:00 09/15/20 14:01 09/15/20 14:15 Temperature Temperature Source Pulse Rate 69 69 78 Pulse Rate from SpO2 Sensor 69 70 Respiratory Rate 13 13 17 Respiratory Depth Blood Pressure 93/62 L Blood Pressure Mean 72 Blood Pressure Position Pulse Oximetry 98 98 Oxygen Delivery Method Sepsis Recent Fever Within 48 Hours Sepsis New/Unexplained Change in Mental Status Sepsis Action Taken by Nursing 09/15/20 14:18 09/15/20 14:30 09/15/20 14:31 Temperature Temperature Source Pulse Rate 75 72 79 Pulse Rate from SpO2 Sensor Respiratory Rate 20 16 16 Respiratory Depth Blood Pressure 104/66 97/63 L Blood Pressure Mean 78 74 Blood Pressure Position Pulse Oximetry Oxygen Delivery Method Sepsis Recent Fever Within 48 Hours Sepsis New/Unexplained Change in Mental Status Sepsis Action Taken by Nursing 09/15/20 14:45 09/15/20 14:46 Temperature Temperature Source Pulse Rate 69 73 Pulse Rate from SpO2 Sensor Respiratory Rate 16 18 Respiratory Depth Blood Pressure 107/85 Blood Pressure Mean 92 Blood Pressure Position Pulse Oximetry Oxygen Delivery Method Sepsis Recent Fever Within 48 Hours Sepsis New/Unexplained Change in Mental Status Sepsis Action Taken by Nursing Laboratory Data Result diagrams: 09/15/20 13:06 09/15/20 13:06 Lab Results 09/15/20 09/15/20 09/15/20 Range/Units 13:06 13:06 14:14 WBC 8.43 (4.8-10.8) K/uL RBC 3.21 L (4.2-5.4) M/uL Hgb 10.1 L (12.0-16.0) g/dL Hct 30.8 L (37-47) % MCV 96.0 (80-100) fL MCH 31.5 (25-34) pg MCHC 32.8 (32-36) g/dL RDW Std Deviation 53.5 H (36.4-46.3) fL RDW Coeff of Mike 15.1 H (11.5-14.5) % Plt Count 217 (130-400) K/uL MPV 12.4 H (7.4-10.4) fL Immature Gran % (Auto) 0.1 % Neut % (Auto) 67.1 % Lymph % (Auto) 25.6 % Stanly % (Auto) 5.2 % Eos % (Auto) 1.5 % Baso % (Auto) 0.5 % Neut # (Auto) 5.65 (1.4-6.5) K/uL Lymph # (Auto) 2.16 (1.2-3.4) K/uL Stanly # (Auto) 0.44 (0.11-0.59) K/uL Eos # (Auto) 0.13 (0-0.5) K/uL Baso # (Auto) 0.04 (0-0.2) K/uL Immature Gran # (Auto) 0.01 (0.00-0.02) K/uL PT 11.3 (9.0-12.0) Seconds INR 1.1 (0.9-1.1) APTT 26.5 (21.0-31.0) Seconds PTT Ratio 1.0 Sodium 145 (136-145) mmol/L Potassium 3.2 L (3.5-5.1) mmol/L Chloride 119 H (98-107) mmol/L Carbon Dioxide 18 L (21-32) mmol/L Anion Gap 8.0 (3-11) BUN 23 H (7-18) mg/dl Creatinine 0.86 (0.6-1.2) mg/dl Est Cr Clr Drug Dosing 46.6 ml/min Est GFR ( Amer) 86.9 Est GFR (Non-Af Amer) 75.0 BUN/Creatinine Ratio 26.9 H (10-20) Glucose 72 (70-99) mg/dl Lactate (0.4-2.0) mmol/L Calcium 6.7 L (8.5-10.1) mg/dl Magnesium 1.1 L (1.8-2.4) mg/dl Total Bilirubin 0.2 (0.2-1) mg/dl AST 10 L (15-37) U/L ALT 16 (12-78) U/L Alkaline Phosphatase 75 (45-117) U/L Troponin I < 0.015 (0-0.045) ng/ml Total Protein 5.2 L (6.4-8.2) gm/dl Albumin 2.4 L (3.4-5.0) gm/dl Globulin 2.8 (2.5-4.0) gm/dl Albumin/Globulin Ratio 0.9 (0.9-2) Procalcitonin (0-0.5) ng/ml COVID-19 Eval Order 09/15/20 09/15/20 09/15/20 Range/Units 14:14 14:14 15:30 WBC (4.8-10.8) K/uL RBC (4.2-5.4) M/uL Hgb (12.0-16.0) g/dL Hct (37-47) % MCV (80-100) fL MCH (25-34) pg MCHC (32-36) g/dL RDW Std Deviation (36.4-46.3) fL RDW Coeff of Mike (11.5-14.5) % Plt Count (130-400) K/uL MPV (7.4-10.4) fL Immature Gran % (Auto) % Neut % (Auto) % Lymph % (Auto) % Stanly % (Auto) % Eos % (Auto) % Baso % (Auto) % Neut # (Auto) (1.4-6.5) K/uL Lymph # (Auto) (1.2-3.4) K/uL Stanly # (Auto) (0.11-0.59) K/uL Eos # (Auto) (0-0.5) K/uL Baso # (Auto) (0-0.2) K/uL Immature Gran # (Auto) (0.00-0.02) K/uL PT (9.0-12.0) Seconds INR (0.9-1.1) APTT (21.0-31.0) Seconds PTT Ratio Sodium (136-145) mmol/L Potassium (3.5-5.1) mmol/L Chloride (98-107) mmol/L Carbon Dioxide (21-32) mmol/L Anion Gap (3-11) BUN (7-18) mg/dl Creatinine (0.6-1.2) mg/dl Est Cr Clr Drug Dosing ml/min Est GFR ( Amer) Est GFR (Non-Af Amer) BUN/Creatinine Ratio (10-20) Glucose (70-99) mg/dl Lactate 1.0 (0.4-2.0) mmol/L Calcium (8.5-10.1) mg/dl Magnesium (1.8-2.4) mg/dl Total Bilirubin (0.2-1) mg/dl AST (15-37) U/L ALT (12-78) U/L Alkaline Phosphatase (45-117) U/L Troponin I (0-0.045) ng/ml Total Protein (6.4-8.2) gm/dl Albumin (3.4-5.0) gm/dl Globulin (2.5-4.0) gm/dl Albumin/Globulin Ratio (0.9-2) Procalcitonin < 0.05 (0-0.5) ng/ml COVID-19 Eval Order CovFluRsv at [facility] Administered Medications Discontinued Medications Sodium Chloride (Nss 1000ml) 1,000 mls @ 999 mls/hr IV .Q1H1M ALEKS Stop: 09/15/20 13:00 Last Infusion: 09/15/20 13:16 Dose: 0 mls/hr Documented by: [id number] Admin: 09/15/20 12:08 Dose: 999 mls/hr Documented by: [id number] Potassium Chloride (Potassium Chloride Crtab 20 Meq Tabcr) 40 meq PO NOW STA Stop: 09/15/20 14:41 Last Admin: 09/15/20 15:25 Dose: Not Given Documented by: [id number] Discharge Plan Visit Data Chief Complaint: Hypotension Stated Complaint: HYPOTENSION, WEAKNESS ED Provider: Aris Burroughs Discharge Problem: Acute hypotension, Hypokalemia, Diarrhea Forms Stand Alone Forms: [facility] Prescriptions Prescriptions: No Action amitriptyline 25 mg tablet 25 mg PO HS RF: 0 rizatriptan 10 mg tablet 10 mg PO DAILY PRN (Reason: Migraines) RF: 0 fremanezumab-vfrm 225 mg/1.5 mL syringe 225 mg SQ MONTHLY RF: 0 omega-3 fatty acids 1,000 mg capsule 1,000 mg PO DAILY RF: 0 ondansetron HCl [Zofran] 4 mg tablet 4 mg PO Q8H PRN (Reason: nausea and vomiting) RF: 0 tizanidine 4 mg tablet 2 mg PO BID PRN (Reason: Migraine Headache) RF: 0 tramadol 50 mg Tablet 50 mg PO Q8H PRN (Reason: Pain) Qty: 0 RF: 0 ergocalciferol (vitamin D2) 50,000 unit Capsule 50,000 unit PO WK Qty: 0 RF: 0 cyanocobalamin (vitamin B-12) 1,000 mcg/mL Solution 1 dose IM MONTHLY Qty: 0 RF: 0 diphenoxylate-atropine [Lomotil] 2.5-0.025 mg Tablet 1 tab PO QID PRN (Reason: Diarrhea) Qty: 0 RF: 0 gabapentin [Neurontin] 100 mg capsule 300 mg PO TID Qty: 0 RF: 0 hydrocodone-acetaminophen 5-325 mg tablet 1 tab PO DAILY PRN (Reason: Severe Pain (Scale Score 7-10)) RF: 0 calcitriol 0.25 mcg Capsule 0.25 mcg PO MOWEFR RF: 0 acetaminophen 500 mg tablet 500 mg PO Q4H PRN (Reason: Pain) RF: 0 dicyclomine 20 mg Tablet 20 mg PO TID PRN (Reason: Muscle Spasm) Qty: 90 RF: 0 sucralfate [Carafate] 100 mg/mL suspension 1 g PO Q6H 28 Days Qty: 1120 RF: 3 beqchwbpfb-dqbyrebnlxsvv-czfq 50-325-40 mg tablet 1 tab PO Q6H PRN (Reason: Pain) RF: 0 alprazolam 0.25 mg tablet 0.25 mg PO DAILY PRN (Reason: Anxiety) RF: 0 calcium carbonate [Oysco-500] 500 mg calcium (1,250 mg) tablet 1,000 mg PO DAILY RF: 0 duloxetine 30 mg capsule,delayed release(DR/EC) 30 mg PO BID RF: 0
[2020-09-15 16:50] LABS: Influenza A virus by PCR Negative (Neg); Influenza B virus by PCR Negative (Neg); RSV by PCR Negative (Neg); SARS CoV2 RNA(COVID-19) InHosp NEGATIVE (Negative)
[2020-09-15] MEDS ORDERED: SODIUM CHLORIDE 0.9% 1000ML 1,000 ML IV ONE (17:10)
[2020-09-15] MEDS: NICOTINE 21 MG/24 HR TDSY TD SCH (17:20)
[2020-09-15] MEDS: NSS + 20MEQ KCL 20 MEQ/1,000 ML BAG IV SCH (17:47)
[2020-09-15] MEDS: MAGNESIUM SULFATE / D5W 1 GM/100 ML BAG IV SCH ×3 (17:58→21:57)
[2020-09-15] MEDS ORDERED: tiZANidine HCL 4 MG TABLET PO PRN (19:56)
[2020-09-15] MEDS ORDERED: DIPHENOXYLATE/ATROPINE 2.5/0.025MG TAB PO PRN (19:56)
[2020-09-15] MEDS ORDERED: DICYCLOMINE HCL 20 MG TAB PO PRN (19:56)
[2020-09-15] MEDS ORDERED: RIZATRIPTAN BENZOATE 10 MG TAB PO PRN (19:56)
[2020-09-15] MEDS ORDERED: ALPRAZolam 0.25 MG TABLET PO PRN (19:56)
[2020-09-15] MEDS ORDERED: ADVANCED PROBIOTIC 1250 MG CAPSULE PO SCH (19:56)
[2020-09-15] MEDS ORDERED: ACETAMINOPHEN 500 MG TAB PO PRN (19:59)
[2020-09-15] MEDS: LACTOBACILLUS ACIDOPHILUS 1 GM PACK PO SCH (20:16)
[2020-09-15] MEDS: ONDANSETRON INJ 2 MG/ML 2 ML VIAL IV PRN (21:04)
[2020-09-15] MEDS: traMADol HCL 50 MG TABLET PO PRN (21:09)
[2020-09-15 21:22] LABS: Bacteria Urine Automated 2+ (Negative); Bilirubin Urine Negative (Negative); Blood Urine Trace (Negative); Color Urine Dark Yellow; Epithelial Cell Urine Auto >30 /lpf (0-5); Glucose Urine UA Negative (Negative); Ketones Urine Negative (Negative); Leukocyte Esterase Urine Trace (Negative); Nitrite Urine Positive (Negative); Protein Urine Trace (Negative); RBC Urine Automated 0-4 /hpf (0-4); Specific Gravity Urine 1.017 (1.000-1.030); Urobilinogen Urine Negative (Negative)
[2020-09-15 21:29] LABS: Appearance Urine Clear (Clear)
[2020-09-15] MEDS: DULoxetine HCL 30 MG CAP PO SCH (21:43)
[2020-09-15] MEDS: NYSTATIN SUSP 500,000 U/5 ML UDC PO SCH (21:43)
[2020-09-15] MEDS: SUCRALFATE 1 GM/10 ML UDC PO SCH (21:43)
[2020-09-15] MEDS: GABAPENTIN 300 MG CAP PO SCH (21:44)
[2020-09-15] MEDS: AMITRIPTYLINE HCL 25 MG TAB PO SCH (21:44)
[2020-09-16] MEDS: HYDROCODONE/ACETAMOPHEN 5/325MG TAB PO PRN (00:02)
[2020-09-16] MEDS: SUCRALFATE 1 GM/10 ML UDC PO SCH ×4 (03:12→20:41)
[2020-09-16] MEDS: ONDANSETRON INJ 2 MG/ML 2 ML VIAL IV PRN ×2 (04:30→11:21)
[2020-09-16] MEDS: NSS + 20MEQ KCL 20 MEQ/1,000 ML BAG IV SCH ×2 (06:07→16:12)
[2020-09-16] MEDS: CALCIUM CARBONATE 1250MG TAB PO SCH (07:30)
[2020-09-16] MEDS: ENOXAPARIN INJ 30 MG/0.3 ML SYR SQ SCH (07:30)
[2020-09-16] MEDS: DULoxetine HCL 30 MG CAP PO SCH ×2 (07:30→20:41)
[2020-09-16] MEDS: LACTOBACILLUS ACIDOPHILUS 1 GM PACK PO SCH ×3 (07:30→17:02)
[2020-09-16] MEDS: CALCITRIOL 0.25 MCG CAPSULE PO SCH (07:31)
[2020-09-16] MEDS: OMEGA-3 (PURIFIED FISH OIL) 1 GM CAP PO SCH (07:31)
[2020-09-16] MEDS: GABAPENTIN 300 MG CAP PO SCH ×3 (07:31→20:42)
[2020-09-16] MEDS: NYSTATIN SUSP 500,000 U/5 ML UDC PO SCH ×4 (07:31→20:42)
[2020-09-16] MEDS: traMADol HCL 50 MG TABLET PO PRN ×2 (07:41→20:43)
[2020-09-16] MEDS: ONDANSETRON 4 MG OD TAB PO PRN (07:41)
[2020-09-16 07:48] LABS: BUN Creatinine Ratio 24.4 (10-20); Calcium 7.4 mg/dl (8.5-10.1); Creatinine Clr Calc Pharmacy 47.7 ml/min; Est GFR (African American) 92.1; Est GFR (Non-African American) 79.4; Magnesium 1.8 mg/dl (1.8-2.4); Potassium 3.4 mmol/L (3.5-5.1)
[2020-09-16] MEDS: NICOTINE 21 MG/24 HR TDSY TD SCH (09:53)
[2020-09-16] MEDS: BUTALBITAL/ACETAMIN/CAFFEINE TAB PO PRN (11:58)
[2020-09-16] MEDS: POTASSIUM CHLORIDE CRTAB 20 MEQ TABCR PO SCH ×2 (11:59→20:42)
--- NOTE | 2020-09-16 14:53 | Hospitalist Progress Note ---
Date of Service September 16, 2020 Assessment & Plan (1) Hypotension: Hypotension secondary to Dehydration , secondary to Diarrhea hx of malabsorption in setting of gastric bypass per Dr. Barahona's notes: This is a 55-year-old female who has significant past medical history of gastric bypass, mild protein calorie malnutrition, siddhartha deficiency, b12 def, scoliosis, chronic pain syndrome, idiopathic peripheral neuropathy, depression, hyperparathyroidism, PFO Who presents to ED at referral of pain management clinic secondary to dizziness and hypotension during appointment. 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 appreciate management chronic pain hx of migraines neuropathy follows pain management depression with anxiety mood stable, continue amitriptyline, duloxetine Hyperparathyroidism continue calcitriol Dispo: pending anticipate d/c home when medically stable plan of care discussed with patient in detail and at length all questions answered she is understanding, agreeable, comfortable with the plan of care Admission and Anticipated Discharge Date Admission Date: September 15, 2020 Subjective ff up for diarrhea, syncope seen resting bed, comfortable sitting up reports 4 loose BMs today, no melena/hematochezia mild LLQ discomfort no nausea, chills denies dizziness, weakness no dysuria, hematuria, flank/back pain no other symptoms Review of Systems Review of Systems: All systems reviewed & are unremarkable except as noted in Subjective Physical Exam Physical Exam: General- oriented x 3, not in distress, speaks in sentences with no effort or accessory muscle use Head- atraumatic Eyes- PERRL, EOMI, anicteric ENT- oropharynx clear Neck- supple, no JVD, no adenopathy, no thyromegaly; carotids +2/2, no bruits appreciated Lungs- clear to auscultation bilaterally, no rales/wheezes Heart- normal rate, regular rhythm; no murmur, no gallop, no rub appreciated Abdomen- normal bowel sounds, nondistended, soft, mild LLQ tenderness, no masses or hepatosplenomegaly no CVA tenderness Extremities- l forearm: mild edema- no warmth, tenderness, erythema; (+) multiple IV sites with small hematoma- no signs of infection no pretibial edema, no calf tenderness; peripheral pulses intact Neuro- alert, oriented x 3; CN 2-12 grossly intact; motor 5/5 bilaterally;sensation 100% on all extremities; no other gross focal neurologic deficits Skin- warm & dry Results & Data Results & Data ([facility]) Vital Signs (Past 12 Hours) Vital Signs Temp Pulse Pulse Resp BP Pulse Ox 09/16/20 11:24 37.3 C 66 16 95/61 L 93 09/16/20 08:00 79 09/16/20 07:32 37.0 C 80 16 101/50 L 93 09/16/20 03:20 36.9 C 88 18 110/69 92 all noted and reviewed including below Laboratory Results Laboratory Results - last 24 hr 09/15/20 09/15/20 09/15/20 14:14 14:14 14:14 PT 11.3 INR 1.1 APTT 26.5 PTT Ratio 1.0 Sodium Potassium Chloride Carbon Dioxide Anion Gap BUN Creatinine Est Cr Clr Drug Dosing Est GFR ( Amer) Est GFR (Non-Af Amer) BUN/Creatinine Ratio Glucose Lactate 1.0 Calcium Magnesium Procalcitonin < 0.05 Urine Color Urine Appearance Urine pH Ur Specific Beaver Urine Protein Urine Glucose (UA) Urine Ketones Urine Blood Urine Nitrite Urine Bilirubin Urine Urobilinogen Ur Leukocyte Esterase Urine WBC (Auto) Urine RBC (Auto) U Hyaline Cast (Auto) U Epithel Cells (Auto) Urine Bacteria (Auto) Stl C. diff Tox B Gene COVID-19 Eval Order SARS-CoV-2 (PCR) Influenza Type A (PCR) Influenza Type B (PCR) RSV (RT-PCR) 09/15/20 09/15/20 09/15/20 15:30 15:30 20:39 PT INR APTT PTT Ratio Sodium Potassium Chloride Carbon Dioxide Anion Gap BUN Creatinine Est Cr Clr Drug Dosing Est GFR ( Amer) Est GFR (Non-Af Amer) BUN/Creatinine Ratio Glucose Lactate Calcium Magnesium Procalcitonin Urine Color Dark Yellow Urine Appearance Clear Urine pH 5.0 Ur Specific Beaver 1.017 Urine Protein Trace H Urine Glucose (UA) Negative Urine Ketones Negative Urine Blood Trace H Urine Nitrite Positive A Urine Bilirubin Negative Urine Urobilinogen Negative Ur Leukocyte Esterase Trace H Urine WBC (Auto) 10-30 H Urine RBC (Auto) 0-4 U Hyaline Cast (Auto) 1-5 U Epithel Cells (Auto) >30 H Urine Bacteria (Auto) 2+ H Stl C. diff Tox B Gene COVID-19 Eval Order CovFluRsv at [facility] SARS-CoV-2 (PCR) NEGATIVE Influenza Type A (PCR) Negative Influenza Type B (PCR) Negative RSV (RT-PCR) Negative 09/15/20 09/16/20 09/16/20 20:39 06:38 10:19 PT INR APTT PTT Ratio Sodium 146 H Potassium 3.4 L Chloride 120 H Carbon Dioxide 20 L Anion Gap 5.0 BUN 20 H Creatinine 0.82 Est Cr Clr Drug Dosing 47.7 Est GFR ( Amer) 92.1 Est GFR (Non-Af Amer) 79.4 BUN/Creatinine Ratio 24.4 H Glucose 74 Lactate Calcium 7.4 L Magnesium 1.8 Procalcitonin Urine Color Urine Appearance Urine pH Ur Specific Beaver Urine Protein Urine Glucose (UA) Urine Ketones Urine Blood Urine Nitrite Urine Bilirubin Urine Urobilinogen Ur Leukocyte Esterase Urine WBC (Auto) Urine RBC (Auto) U Hyaline Cast (Auto) U Epithel Cells (Auto) Urine Bacteria (Auto) Stl C. diff Tox B Gene TNP Negative Cdiff Gene COVID-19 Eval Order SARS-CoV-2 (PCR) Influenza Type A (PCR) Influenza Type B (PCR) RSV (RT-PCR)
--- NOTE | 2020-09-16 14:59 | Gastrointestinal Consultation ---
Date of Consultation September 16, 2020 Assessment & Plan (1) Diarrhea: This is a 55 y/o female with PMhx chronic intermittent abd pain, altered BMs, h/o RYGB, s/p CCY, now admitted after having diarrhea for the last several days and had some hypotension earlier. Etiology of her symptoms unclear; she is concerned about infectious etiology and certainly would be good exclude this, particularly given her recent ABX. On exam abd is soft, mildly tender LLQ; hypotension improved. - Await stool cultures, stool for C. diff - Recommend supportive care with correction of electrolytes, monitoring BP, stool output - Diet as tolerated; would suggest trying FODMAPs diet - Outpt EGD/colonoscopy planned for her chronic abd symptoms, will see if this can be moved up Thank you for allowing us to participate in the care of this patient. Please call with any acute changes, questions or concerns. Please see addendum below with additional recommendation from my supervising physician. Supervising Physician Co-Signing Physician Notes I saw and evaluated the patient on 09/16 after our service was consulted for history of diarrhea. The patient has been followed as an outpatient by Dr. Yadav for similar problems over the years scheduled to have an upper endoscopy and colonoscopy for further evaluation of this symptom in a few weeks. She was found to be somewhat hypotensive at her pain management office and referred to the hospital for inpatient evaluation. Physical examination Pleasant appearing female in no obvious distress, no scleral icterus Impression: Patient with a history of a Raúl-en-Y gastric bypass with a history notable for recurrent diarrhea. She is to undergo full endoscopic evaluation with her normal GI provider Dr. Yadav as an outpatient, the patient is very happy with this and prefers to see him as he has provided most of her care over the years. With regard to our recommendations we would suggest a C. difficile PCR in addition to a stool culture for further evaluation. One possible cause of her symptoms could be related to her gastric bypass, these patients can develop bacterial overgrowth and she may benefit from a breath test as an outpatient History of Present Illness Reason for Consultation: PERSISTENT DIARRHEA Requesting Physician: Dr. Williamson Attending Physician: Jovanny Canela MD History of Present Illness Pt is a 55 y/o female with PMhx remote RYGB, s/p CCY, history of postoperative intestinal malabsorption, chronic intermittent abdominal pain, altered bowel habits, chronic PAULA, migraines, chronic pain and others admitted today after she was sent from her pain management office, with dizziness and hypotension. Patient notes that she has had diarrhea for the past 6 days, having several loose watery BMs daily. On arrival, she did have a mild hypokalemia with a K of 3.3, stable chronic anemia, renal function and LFTs. Hypotension has improved with some hydration, and patient feeling somewhat better. Stool for C. difficile and stool culture are pending. On exam she is drinking a Coke; tolerating regular diet. Patient was on antibiotic for UTI earlier in the month. She was consulted by GI service during recent admission 08/24/2020, at that time was having abdominal pain and chronic intermittent loose stool. Stool studies at that time were negative. She was set up to have an outpatient EGD/colonoscopy which is scheduled for October. She states typically in the last few weeks she has been having solid stool daily, and the diarrhea is different for her this time as it can be explosive and more watery than normal. Did have some vomiting and nausea earlier but none now. Presently having some mild left lower quadrant abdominal discomfort. She does use Bentyl 4 times daily for chronic abdominal pain, and does use Lomotil intermittently for diarrhea. No recent fevers or chills, no sick contacts. Denies fevers or chills, hematemesis, melena or hematochezia, CP, SOB, rashes, weight changes, leg swelling, syncope. Allergies Allergy/AdvReac Type Severity Reaction Status Date / Time Penicillins Allergy Unknown ? REACTION Verified 09/15/20 12:51 Sulfa (Sulfonamide Allergy Unknown Unknown Verified 09/15/20 12:51 Antibiotics) reaction aspirin AdvReac Mild No an Verified 09/15/20 12:51 allergy- cannot take post-bypass surgery ragweed pollen AdvReac Mild swelling Verified 09/15/20 12:51 Home Medications Medication Instructions Recorded Confirmed Type tramadol 50 mg PO Q8H PRN #0 tab 03/29/13 09/15/20 History ergocalciferol (vitamin D2) 50,000 unit PO WK #0 cap 11/26/13 09/15/20 History cyanocobalamin (vitamin B-12) 1 dose IM MONTHLY #0 06/11/14 09/15/20 History diphenoxylate-atropine [Lomotil] 1 tab PO QID PRN #0 tab 08/02/16 09/15/20 History amitriptyline 25 mg tablet 25 mg PO HS tab 11/06/18 09/15/20 History rizatriptan 10 mg tablet 10 mg PO DAILY PRN tab 11/06/18 09/15/20 History fremanezumab-vfrm 225 mg/1.5 mL 225 mg SQ MONTHLY ml 04/15/19 09/15/20 History subcutaneous syringe alprazolam 0.25 mg PO DAILY PRN 06/28/19 09/15/20 History yyirxipybx-zttaxbodjppxp-ivdz 1 tab PO Q6H PRN 06/28/19 09/15/20 History calcium carbonate [Oysco-500] 1,000 mg PO DAILY 06/28/19 09/15/20 History omega-3 fatty acids 1,000 mg 1,000 mg PO DAILY 07/25/19 09/15/20 History capsule duloxetine 30 mg capsule,delayed 30 mg PO BID cap 10/29/19 09/15/20 History release gabapentin 100 mg capsule 300 mg PO TID #0 cap 10/29/19 09/15/20 History ondansetron HCl 4 mg tablet 4 mg PO Q8H PRN 10/29/19 09/15/20 History tizanidine 4 mg tablet 2 mg PO BID PRN 10/29/19 09/15/20 History acetaminophen 500 mg PO Q4H PRN 08/23/20 09/15/20 History calcitriol 0.25 mcg PO MOWEFR 08/23/20 09/15/20 History hydrocodone-acetaminophen 1 tab PO DAILY PRN 08/23/20 09/15/20 History dicyclomine 20 mg PO TID PRN #90 tab 08/26/20 09/15/20 Rx sucralfate [Carafate] 1 g PO Q6H 28 Days #1120 ml 08/27/20 09/15/20 Rx Patient History Medical History (Updated 09/18/20 @ 08:34 by Lidia Michaels DO) Anemia Copper deficiency Malabsorption Migraine headache Zinc poisoning Surgical History History of bowel diversion surgery History of cholecystectomy History of gastric bypass Hx of cardiac cath jul 01 2019 Family History Mother Coronary heart disease Social History (Updated 09/15/20 @ 16:12 by Nadiya Mayers PA-C) Smoking Status: Current every day smoker packs per day: 1; Cigarettes Per Day: 20-30; Second Hand Exposure: Yes; Do You Dip or Chew Tobacco: No; Tobacco Cessation Education Requested by Patient: No Hx Alcohol Use: No Hx Substance Use: No Preferred Language: Arabic Communication Ability: Effective Visual Impairment: No Limitations Hearing Ability: Normal [employer] Supervisor Required: No Beliefs That Will Affect Care: None marital status: Current Living Situation: Spouse Current Living Situation Comment: in middle of divorce current occupational status: disabled 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- [employer] Other Information That Helps Us Care for You: No Feels Safe at Home: Hesitant to Answer Safety Concerns: Feels Safe At This Time Assistive Devices: Glasses and Walker Review of Systems Review of Systems: All systems reviewed & are unremarkable except as noted in HPI & below Physical Exam Constitutional: WD/WN, vitals as above Eyes: + anicteric sclerae Respiratory: normal respiratory effort, lungs clear to auscultation Cardiovascular: RRR, no murmur, no edema Gastrointestinal (Abdomen): Inspection/Auscultation: abdomen normal to inspection; abdomen not distended Percussion/Palpation: abdomen soft; no guarding mild LLQ tenderness, no rebound Skin: no rashes, warm and dry no jaundice Psychiatric: A+Ox3, euthymic affect Results & Data ([facility]) Vital Signs (Past 12 Hours) Vital Signs Temp Pulse Pulse Resp BP Pulse Ox 09/16/20 11:24 37.3 C 66 16 95/61 L 93 09/16/20 08:00 79 09/16/20 07:32 37.0 C 80 16 101/50 L 93 09/16/20 03:20 36.9 C 88 18 110/69 92 Laboratory Results 09/16/20 09/16/20 09/15/20 Range/Units 10:19 06:38 20:39 Sodium 146 H (136-145) mmol/L Potassium 3.4 L (3.5-5.1) mmol/L Chloride 120 H (98-107) mmol/L Carbon Dioxide 20 L (21-32) mmol/L Anion Gap 5.0 (3-11) BUN 20 H (7-18) mg/dl Creatinine 0.82 (0.6-1.2) mg/dl Est Cr Clr Drug Dosing 47.7 ml/min Est GFR ( Amer) 92.1 Est GFR (Non-Af Amer) 79.4 BUN/Creatinine Ratio 24.4 H (10-20) Glucose 74 (70-99) mg/dl Calcium 7.4 L (8.5-10.1) mg/dl Magnesium 1.8 (1.8-2.4) mg/dl Urine Color Urine Appearance (Clear) Urine pH (4.5-7.5) Ur Specific [place] (1.000-1.030) Urine Protein (Negative) Urine Glucose (UA) (Negative) Urine Ketones (Negative) Urine Blood (Negative) Urine Nitrite (Negative) Urine Bilirubin (Negative) Urine Urobilinogen (Negative) Ur Leukocyte Esterase (Negative) Urine WBC (Auto) (0-5) /hpf Urine RBC (Auto) (0-4) /hpf U Hyaline Cast (Auto) (0-5) /lpf U Epithel Cells (Auto) (0-5) /lpf Urine Bacteria (Auto) (Negative) Stl C. diff Tox B Gene Negative Cdiff Gene TNP 09/15/20 Range/Units 20:39 Sodium (136-145) mmol/L Potassium (3.5-5.1) mmol/L Chloride (98-107) mmol/L Carbon Dioxide (21-32) mmol/L Anion Gap (3-11) BUN (7-18) mg/dl Creatinine (0.6-1.2) mg/dl Est Cr Clr Drug Dosing ml/min Est GFR ( Amer) Est GFR (Non-Af Amer) BUN/Creatinine Ratio (10-20) Glucose (70-99) mg/dl Calcium (8.5-10.1) mg/dl Magnesium (1.8-2.4) mg/dl Urine Color Dark Yellow Urine Appearance Clear (Clear) Urine pH 5.0 (4.5-7.5) Ur Specific [place] 1.017 (1.000-1.030) Urine Protein Trace H (Negative) Urine Glucose (UA) Negative (Negative) Urine Ketones Negative (Negative) Urine Blood Trace H (Negative) Urine Nitrite Positive A (Negative) Urine Bilirubin Negative (Negative) Urine Urobilinogen Negative (Negative) Ur Leukocyte Esterase Trace H (Negative) Urine WBC (Auto) 10-30 H (0-5) /hpf Urine RBC (Auto) 0-4 (0-4) /hpf U Hyaline Cast (Auto) 1-5 (0-5) /lpf U Epithel Cells (Auto) >30 H (0-5) /lpf Urine Bacteria (Auto) 2+ H (Negative) Stl C. diff Tox B Gene (1) Diarrhea Diarrhea type: unspecified type Qualified Code(s): R19.7 - Diarrhea, unspecified
[2020-09-16] MEDS: CIPROFLOXACIN / D5W 400 MG/200 ML BAG IV SCH (16:12)
[2020-09-16] MEDS: AMITRIPTYLINE HCL 25 MG TAB PO SCH (20:41)
[2020-09-17] MEDS: NSS + 20MEQ KCL 20 MEQ/1,000 ML BAG IV SCH ×2 (02:06→12:23)
[2020-09-17] MEDS: SUCRALFATE 1 GM/10 ML UDC PO SCH ×4 (02:06→20:35)
[2020-09-17] MEDS: traMADol HCL 50 MG TABLET PO PRN ×3 (04:38→23:57)
[2020-09-17] MEDS: CIPROFLOXACIN / D5W 400 MG/200 ML BAG IV SCH ×2 (04:39→16:02)
[2020-09-17 07:04] LABS: Creatinine Clr Calc Pharmacy 52.7 ml/min; Est GFR (African American) 100.9; Est GFR (Non-African American) 87.1; Potassium 4.5 mmol/L (3.5-5.1)
[2020-09-17] MEDS: DULoxetine HCL 30 MG CAP PO SCH ×2 (08:06→20:36)
[2020-09-17] MEDS: POTASSIUM CHLORIDE CRTAB 20 MEQ TABCR PO SCH ×2 (08:06→20:37)
[2020-09-17] MEDS: LACTOBACILLUS ACIDOPHILUS 1 GM PACK PO SCH ×3 (08:06→16:02)
[2020-09-17] MEDS: OMEGA-3 (PURIFIED FISH OIL) 1 GM CAP PO SCH (08:07)
[2020-09-17] MEDS: CALCIUM CARBONATE 1250MG TAB PO SCH (08:07)
[2020-09-17] MEDS: GABAPENTIN 300 MG CAP PO SCH ×3 (08:07→20:37)
[2020-09-17] MEDS: NICOTINE 21 MG/24 HR TDSY TD SCH (08:08)
[2020-09-17] MEDS: NYSTATIN SUSP 500,000 U/5 ML UDC PO SCH ×4 (08:10→20:35)
[2020-09-17] MEDS: ENOXAPARIN INJ 30 MG/0.3 ML SYR SQ SCH (08:15)
[2020-09-17] MEDS: BUTALBITAL/ACETAMIN/CAFFEINE TAB PO PRN (08:40)
--- NOTE | 2020-09-17 08:52 | Gastroenterology Progress Note ---
Date of Service September 17, 2020 Assessment & Plan (1) Diarrhea: This is a 55 y/o female with PMhx chronic intermittent abd pain, altered BMs, h/o RYGB, s/p CCY, history of intestinal postoperative malabsorption, now admitted after having diarrhea for the last several days despite Bentyl and Lomotil (which usually helps her) and had some hypotension earlier. Etiology of her symptoms unclear; she is concerned about infectious etiology and will need to exclude this. Other possibilities to consider would be overflow diarrhea, medications, related to bile acid diarrhea, post-surgical RYGB, IBS, microscopic colitis. Prior pandendoscopy negative for Celiac in the past. On exam abd is soft, mildly tender LLQ; hypotension improved. - Await stool cultures - Await O&P, giardia screen - If infectious r/o, consider checking KUB and addition of daily fiber, vs possibly Questran - Recommend supportive care with correction of electrolytes (Na 147), monitoring BP, stool output - Diet as tolerated; would suggest trying FODMAPs diet - Outpt EGD/colonoscopy planned for her chronic abd symptoms, will see if this can be moved up Thank you for allowing us to participate in the care of this patient. Please call with any acute changes, questions or concerns. Please see addendum below with additional recommendation from my supervising physician. Admission and Anticipated Discharge Date Admission Date: September 15, 2020 Supervising Physician Co-Signing Physician Notes Attending attestation I have seen, examined this patient, and agree with the findings and above by our mid-level provider Ki Talley, with the following additions: -Acute on chronic diarrhea -Follow Stool Cx -Imodium, fiber, cholesytramine if cx including giardia is negative -Outpt EGD/Colon -Eating normal diet without issues Subjective Patient seen and examined, chart reviewed. Overnight has had 4-5 loose/diarrheal stools. Is tolerating regular diet. Has chronic intermittent abd discomfort which is not significantly changed. Denies melena, hematochezia, hematemesis, fever, chills, CP, SOB. C. diff testing is negative Review of Systems Constitutional: no fever and no chills Respiratory: no cough and no dyspnea Cardiovascular: no chest pain and no syncope Gastrointestinal: as per Subjective / HPI Integumentary: no rash Physical Exam Constitutional: WD/WN, vitals as above Eyes: + anicteric sclerae Respiratory: normal respiratory effort, lungs clear to auscultation Cardiovascular: RRR, no murmur, no edema Gastrointestinal (Abdomen): Inspection/Auscultation: abdomen normal to inspection; abdomen not distended Percussion/Palpation: abdomen soft; no guarding mild TTP LLQ, no rebound Skin: no rashes, warm and dry no jaundice Psychiatric: A+Ox3, euthymic affect Results & Data ([facility]) Vital Signs (Past 12 Hours) Vital Signs Temp Pulse Pulse Resp BP Pulse Ox 09/17/20 08:02 36.8 C 76 16 97/65 L 97 09/17/20 07:08 69 09/17/20 02:59 36.6 C 75 17 93/65 L 93 09/16/20 23:31 72 09/16/20 22:25 36.8 C 75 18 104/70 97 Laboratory Results 09/17/20 09/16/20 09/16/20 Range/Units 05:55 20:30 10:19 Sodium 147 H (136-145) mmol/L Potassium 4.5 D (3.5-5.1) mmol/L Chloride 124 H (98-107) mmol/L Carbon Dioxide 17 L (21-32) mmol/L Anion Gap 6.0 (3-11) BUN 11 (7-18) mg/dl Creatinine 0.76 (0.6-1.2) mg/dl Est Cr Clr Drug Dosing 52.7 ml/min Est GFR ( Amer) 100.9 Est GFR (Non-Af Amer) 87.1 BUN/Creatinine Ratio 14.0 (10-20) Glucose 83 (70-99) mg/dl Calcium 7.0 L (8.5-10.1) mg/dl Stl C. diff Tox B Gene Negative Cdiff Gene Negative Cdiff Gene (Neg) (1) Diarrhea Diarrhea type: unspecified type Qualified Code(s): R19.7 - Diarrhea, unspecified
--- NOTE | 2020-09-17 12:09 | Hospitalist Progress Note ---
Date of Service September 17, 2020 Assessment & Plan (1) Hypotension: Hypotension secondary to Dehydration , secondary to Diarrhea hx of malabsorption in setting of gastric bypass improved with IVF administration but patient still reporting intermittent explosive diarrhea C Diff gene negative repeat C diff test ordered and pending patient now started on Cipro for recurrence of UTI, may contribute to continued bowel symptoms. patient is very particular about her drinking water and only drinks [place] bottled water so bacterial diarrhea illness considered less likely. GI following-appreciate recs. Patient is tolerating PO at this point and BP stable so holding on further IVF. Will give some free water overnight, however, for her mild hypernatremia. She was discouraged from drinking so many iced teas and caffienated drinks. (2) Hypokalemia: Replace lytes as needed. Stay hydrated. Avoid caffienated beverages. (3) Diarrhea: plan as above. Stool studies pending. (4) Severe malnutrition: protein calorie malnutrition, consulted RD (5) History of bowel diversion surgery: history of gastric bypass continue b12 injections, has had issues with diarrhea and malabsorption in the past. (6) Anemia: chronic anemia H/H stable, no s/sx of bleeding (7) Chronic pain syndrome: Chronic abdominal pain, h/o migraines and neuropathy. Follows with pain management. continue increased bentyl, carafate follows GI - to have EGD/Colonoscopy 10/08 (8) Tobacco use: Currently on nicotine supplementation. (9) Depression with anxiety: mood stable, continue amitriptyline, duloxetine (10) Hyperparathyroidism: calcitriol per home regimen. (11) DVT prophylaxis: Lovenox Full Dispo-to home when feeling better. Prefer to rule out diarrheal illness first. Lidia Michaels DO [facility] Hospitalist Admission and Anticipated Discharge Date Admission Date: September 15, 2020 Subjective 55 yo F presented with symptomatic hypotension secondary to Dehydration , secondary to Diarrhea with a history of malabsorption in setting of gastric bypass. Also has +E coli in urine. no symptoms of UTI reported at this time. Recent abx related to last hospitalization one month ago concerns for possible c-diff with intermittent explosive diarrhea patient otherwise feeling better, hypotension resolved, hypokalemia resolves, etc she is eating Review of Systems Review of Systems: All systems reviewed & are unremarkable except as noted in Subjective Physical Exam Physical Exam: CONSTITUTIONAL: WNWD, vitals as above, generally well-appea ring EYES: normal conjunctivae, no scleral icterus ENT: external ear and nose normal, MMM RESPIRATORY: clear to auscultation bilaterally, no crackles, rales or wheezes, normal respiratory effort CARDIOVASCULAR: regular rate and rhythm, S1 and 2 heard without murmurs, gallops or rubs, no JVD, no peripheral edema GASTROINTESTINAL: soft, nontender, nondistended MUSCULOSKELETAL: strength 5/5 throughout, head is normocephalic and atraumatic SKIN: warm and dry NEUROLOGIC: CN 2-12 grossly intact, normal cognition, normal speech, no gross focal deficits. PSYCHIATRIC: alert cooperative and oriented to person, place and time. Results & Data Results & Data ([facility]) Vital Signs (Past 12 Hours) Vital Signs Temp Pulse Pulse Resp BP Pulse Ox 09/17/20 11:44 36.8 C 67 18 105/70 100 09/17/20 08:02 36.8 C 76 16 97/65 L 97 09/17/20 07:08 69 09/17/20 02:59 36.6 C 75 17 93/65 L 93 Laboratory Results [facility] 09/17/20 05:55 Sodium 147 H Potassium 4.5 D Chloride 124 H Carbon Dioxide 17 L BUN 11 Creatinine 0.76 Glucose 83 Calcium 7.0 L Medications Administered Current Inpatient Medications Acetaminophen (Acetaminophen 325 Mg Tab) 650 mg PO Q4H PRN PRN Reason: Pain or Fever Stop: 10/15/20 15:09 Acetaminophen/Butalbital/Caffeine (Butalbital/Acetamin/Caffeine Tab) 1 tab PO Q6H PRN PRN Reason: Pain Stop: 10/15/20 19:55 Last Admin: 09/17/20 08:40 Dose: 1 tab Documented by: Hydrocodone Bitart/Acetaminophen (Hydrocodone/Acetamophen 5/325mg Tab) 1 tab PO DAILY PRN PRN Reason: Severe Pain (Scale Score 7-10) Stop: 09/29/20 19:55 Last Admin: 09/16/20 00:02 Dose: 1 tab Documented by: Alprazolam (Alprazolam 0.25 Mg Tablet) 0.25 mg PO DAILY PRN PRN Reason: Anxiety Stop: 10/15/20 19:55 Amitriptyline HCl (Amitriptyline Hcl 25 Mg Tab) 25 mg PO HS [facility] Stop: 10/15/20 20:59 Last Admin: 09/16/20 20:41 Dose: 25 mg Documented by: Calcitriol (Calcitriol 0.25 Mcg Capsule) 0.25 mcg PO MoWeFr@0900 ALEKS Stop: 10/16/20 08:59 Last Admin: 09/16/20 07:31 Dose: 0.25 mcg Documented by: Calcium Carbonate (Calcium Carbonate 1250mg Tab) 2,500 mg PO QDB ALEKS Stop: 10/16/20 07:29 Last Admin: 09/17/20 08:07 Dose: 2,500 mg Documented by: Dicyclomine HCl (Dicyclomine Hcl 20 Mg Tab) 20 mg PO TID PRN PRN Reason: Muscle Spasm Stop: 10/15/20 19:55 Diphenoxylate HCl/Atropine (Diphenoxylate/Atropine 2.5/0.025mg Tab) 1 tab PO QID PRN PRN Reason: Diarrhea Stop: 10/15/20 19:55 Duloxetine HCl (Duloxetine Hcl 30 Mg Cap) 30 mg PO BID [facility] Stop: 10/15/20 20:59 Last Admin: 09/17/20 08:06 Dose: 30 mg Documented by: Enoxaparin Sodium (Enoxaparin Inj 30 Mg/0.3 Ml Syr) 30 mg SQ QAM [facility] Stop: 10/16/20 08:59 Last Admin: 09/17/20 08:15 Dose: 30 mg Documented by: Fish Oil ([place]-3 (Purified Fish Oil) 1 Gm Cap) 1 gm PO DAILY [facility] Stop: 10/16/20 08:59 Last Admin: 09/17/20 08:07 Dose: 1 gm Documented by: Gabapentin (Gabapentin 300 Mg Cap) 300 mg PO TID [facility] Stop: 10/15/20 20:59 Last Admin: 09/17/20 08:07 Dose: 300 mg Documented by: Ciprofloxacin (Cipro / D5w) 400 mg in 200 mls @ 100 mls/hr IV Q12H [facility]; Protocol Stop: 09/21/20 15:59 Last Infusion: 09/17/20 06:39 Dose: Infused Documented by: Lactobacillus Acidophilus (Lactobacillus Acidophilus 1 Gm Pack) 1 gm PO TIDM [facility] Stop: 10/15/20 16:59 Last Admin: 09/17/20 08:06 Dose: 1 gm Documented by: Miscellaneous (Remove Nicoderm Patch) 1 ea N/A DAILY@0859 [facility] Stop: 10/16/20 08:58 Last Admin: 09/17/20 08:10 Dose: 1 ea Documented by: Nicotine (Nicotine 21 Mg/24 Hr Tdsy) 21 mg TD QAM [facility] Stop: 10/15/20 16:14 Last Admin: 09/17/20 08:08 Dose: 21 mg Documented by: Nystatin (Nystatin Susp 500,000 U/5 Ml Udc) 5 ml PO QID [facility] Stop: 09/25/20 20:59 Last Admin: 09/17/20 08:10 Dose: 5 ml Documented by: Ondansetron HCl (Ondansetron Inj 2 Mg/Ml 2 Ml Vial) 4 mg IV Q6H PRN PRN Reason: Nausea Stop: 10/15/20 15:09 Last Admin: 09/16/20 11:21 Dose: 4 mg Documented by: Ondansetron HCl (Ondansetron 4 Mg Od Tab) 4 mg PO Q8H PRN PRN Reason: Nausea And Vomiting Stop: 10/15/20 20:00 Last Admin: 09/16/20 07:41 Dose: 4 mg Documented by: Polyethylene Glycol (Polyethylene (Miralax) 17 Gm Pack) 17 gm PO DAILY PRN PRN Reason: Constipation Stop: 10/15/20 15:09 Potassium Chloride (Potassium Chloride Crtab 20 Meq Tabcr) 40 meq PO BID [facility] Stop: 10/16/20 08:21 Last Admin: 09/17/20 08:06 Dose: 40 meq Documented by: Rizatriptan Benzoate (Rizatriptan Benzoate 10 Mg Tab) 10 mg PO DAILY PRN PRN Reason: Migraines Stop: 10/15/20 19:55 Last Admin: 09/16/20 17:01 Dose: 10 mg Documented by: Sucralfate (Sucralfate 1 Gm/10 Ml Udc) 1 gm PO Q6H [facility] Stop: 10/15/20 20:59 Last Admin: 09/17/20 08:14 Dose: 1 gm Documented by: Tizanidine HCl (Tizanidine Hcl 4 Mg Tablet) 2 mg PO BID PRN PRN Reason: Migraine Headache Stop: 10/15/20 19:55 Tramadol HCl (Tramadol Hcl 50 Mg Tablet) 50 mg PO Q8H PRN PRN Reason: Pain Stop: 10/15/20 19:55 Last Admin: 09/17/20 04:38 Dose: 50 mg Documented by: (1) Anemia Anemia type: unspecified type Qualified Code(s): D64.9 - Anemia, unspecified (2) Diarrhea Diarrhea type: unspecified type Qualified Code(s): R19.7 - Diarrhea, unspecified
[2020-09-17] MEDS: ONDANSETRON 4 MG OD TAB PO PRN (13:54)
[2020-09-17] MEDS: ONDANSETRON INJ 2 MG/ML 2 ML VIAL IV PRN (14:33)
[2020-09-17] MEDS ORDERED: DEXTROSE 5% 1,000 ML IV SCH (19:30)
[2020-09-17] MEDS: AMITRIPTYLINE HCL 25 MG TAB PO SCH (20:36)
[2020-09-18] MEDS: CIPROFLOXACIN / D5W 400 MG/200 ML BAG IV SCH ×2 (04:36→18:10)
[2020-09-18] MEDS: SUCRALFATE 1 GM/10 ML UDC PO SCH ×4 (04:36→20:42)
[2020-09-18] MEDS: CALCITRIOL 0.25 MCG CAPSULE PO SCH (08:16)
[2020-09-18] MEDS: CALCIUM CARBONATE 1250MG TAB PO SCH (08:16)
[2020-09-18] MEDS: POTASSIUM CHLORIDE CRTAB 20 MEQ TABCR PO SCH ×2 (08:16→20:42)
[2020-09-18] MEDS: OMEGA-3 (PURIFIED FISH OIL) 1 GM CAP PO SCH (08:16)
[2020-09-18] MEDS: DULoxetine HCL 30 MG CAP PO SCH ×2 (08:17→20:43)
[2020-09-18] MEDS: HYDROCODONE/ACETAMOPHEN 5/325MG TAB PO PRN (08:17)
[2020-09-18] MEDS: GABAPENTIN 300 MG CAP PO SCH ×3 (08:18→20:43)
[2020-09-18] MEDS: ENOXAPARIN INJ 30 MG/0.3 ML SYR SQ SCH (08:18)
[2020-09-18] MEDS: LACTOBACILLUS ACIDOPHILUS 1 GM PACK PO SCH ×3 (08:19→16:15)
[2020-09-18] MEDS: NYSTATIN SUSP 500,000 U/5 ML UDC PO SCH ×4 (08:19→20:43)
[2020-09-18] MEDS: NICOTINE 21 MG/24 HR TDSY TD SCH (08:21)
[2020-09-18 09:38] LABS: BUN Creatinine Ratio 6.9 (10-20); Creatinine Clr Calc Pharmacy 33.1 ml/min; Est GFR (African American) 57.5; Est GFR (Non-African American) 49.6; Magnesium 1.1 mg/dl (1.8-2.4); Potassium 4.4 mmol/L (3.5-5.1)
[2020-09-18] MEDS: traMADol HCL 50 MG TABLET PO PRN (11:04)
[2020-09-18] MEDS ORDERED: MAGNESIUM SULFATE 50% 4 GM in SODIUM CHLORIDE 0.9% 500 ML IV SCH (11:45)
[2020-09-18 15:21] LABS: Creatinine Urine Random < 13.0 mg/dl; Sodium Random Urine 136 mmol/L
[2020-09-18] MEDS: BUTALBITAL/ACETAMIN/CAFFEINE TAB PO PRN (16:12)
--- NOTE | 2020-09-18 20:11 | Hospitalist Progress Note ---
Date of Service September 18, 2020 Assessment & Plan (1) Hypotension: Hypotension secondary to Dehydration , secondary to Diarrhea hx of malabsorption in setting of gastric bypass resolved with IVF , now low normal BP levels. C Diff gene negative repeat C diff test ordered and negative patient is very particular about her drinking water and only drinks [place] bottled water so bacterial diarrhea illness considered less likely. Other stool studies pending to rule out infectious etiology. GI following-appreciate recs. Patient is tolerating PO at this point and BP stable so holding on further IVF. (2) Hypokalemia: Replace lytes as needed. Stay hydrated. Avoid caffienated beverages. Replace Mg which was severely low today. (3) Diarrhea: plan as above. Stool studies pending. No evidence of cdiff. Educated her to avoid caffeinated beverages. (4) Severe malnutrition: protein calorie malnutrition, consulted RD (5) History of bowel diversion surgery: history of gastric bypass continue b12 injections, has had issues with diarrhea and malabsorption in the past. (6) Anemia: chronic anemia H/H stable, no s/sx of bleeding (7) Chronic pain syndrome: Chronic abdominal pain, h/o migraines and neuropathy. Follows with pain management. continue increased bentyl, carafate follows GI - to have EGD/Colonoscopy 10/08 (8) Tobacco use: Currently on nicotine supplementation. (9) Depression with anxiety: mood stable, continue amitriptyline, duloxetine (10) Hyperparathyroidism: calcitriol per home regimen. (11) DVT prophylaxis: Lovenox Full Dispo-to home when feeling better. Lidia Michaels DO [facility] Hospitalist Admission and Anticipated Discharge Date Admission Date: September 15, 2020 Subjective 55 yo F presented with symptomatic hypotension secondary to Dehydration , secondary to Diarrhea with a history of malabsorption in setting of gastric bypass. Also has +E coli in urine. no symptoms of UTI reported at this time. Recent abx related to last hospitalization one month ago continues to have intermittent IBS issues Some lower abdominal pain, same quality as her chronic pain and using Bentyl feels chilled and cold Mg was 1.1 Review of Systems Review of Systems: All systems reviewed & are unremarkable except as noted in Subjective Physical Exam Physical Exam: CONSTITUTIONAL: WNWD, vitals as above, generally ill-appearing EYES: normal conjunctivae, no scleral icterus ENT: external ear and nose normal, MMM RESPIRATORY: clear to auscultation bilaterally, no crackles, rales or wheezes, normal respiratory effort CARDIOVASCULAR: regular rate and rhythm, S1 and 2 heard without murmurs, gallops or rubs, no JVD, no peripheral edema GASTROINTESTINAL: soft, TTP in suprapubic region. Nondistended. MUSCULOSKELETAL: strength 5/5 throughout, head is normocephalic and atraumatic SKIN: warm and dry NEUROLOGIC: CN 2-12 grossly intact, normal cognition, normal speech, no gross focal deficits. PSYCHIATRIC: alert cooperative and oriented to person, place and time. Results & Data Results & Data ([facility]) Vital Signs (Past 12 Hours) Vital Signs Temp Pulse Resp BP Pulse Ox 09/18/20 15:30 37.1 C 51 L 18 103/68 93 Laboratory Results BMP 09/18/20 08:35 Sodium 141 Potassium 4.4 Chloride 115 H Carbon Dioxide 19 L BUN 8 Creatinine 1.21 H D Glucose 86 Calcium 8.0 L Medications Administered Current Inpatient Medications Acetaminophen (Acetaminophen 325 Mg Tab) 650 mg PO Q4H PRN PRN Reason: Pain or Fever Stop: 10/15/20 15:09 Acetaminophen/Butalbital/Caffeine (Butalbital/Acetamin/Caffeine Tab) 1 tab PO Q6H PRN PRN Reason: Pain Stop: 10/15/20 19:55 Last Admin: 09/18/20 16:12 Dose: 1 tab Documented by: Hydrocodone Bitart/Acetaminophen (Hydrocodone/Acetamophen 5/325mg Tab) 1 tab PO DAILY PRN PRN Reason: Severe Pain (Scale Score 7-10) Stop: 09/29/20 19:55 Last Admin: 09/18/20 08:17 Dose: 1 tab Documented by: Alprazolam (Alprazolam 0.25 Mg Tablet) 0.25 mg PO DAILY PRN PRN Reason: Anxiety Stop: 10/15/20 19:55 Amitriptyline HCl (Amitriptyline Hcl 25 Mg Tab) 25 mg PO HS [facility] Stop: 10/15/20 20:59 Last Admin: 09/17/20 20:36 Dose: 25 mg Documented by: Calcitriol (Calcitriol 0.25 Mcg Capsule) 0.25 mcg PO MoWeFr@0900 [facility] Stop: 10/16/20 08:59 Last Admin: 09/18/20 08:16 Dose: 0.25 mcg Documented by: Calcium Carbonate (Calcium Carbonate 1250mg Tab) 2,500 mg PO QDB [facility] Stop: 10/16/20 07:29 Last Admin: 09/18/20 08:16 Dose: 2,500 mg Documented by: Dicyclomine HCl (Dicyclomine Hcl 20 Mg Tab) 20 mg PO TID PRN PRN Reason: Muscle Spasm Stop: 10/15/20 19:55 Last Admin: 09/18/20 09:28 Dose: 20 mg Documented by: Diphenoxylate HCl/Atropine (Diphenoxylate/Atropine 2.5/0.025mg Tab) 1 tab PO QID PRN PRN Reason: Diarrhea Stop: 10/15/20 19:55 Duloxetine HCl (Duloxetine Hcl 30 Mg Cap) 30 mg PO BID [facility] Stop: 10/15/20 20:59 Last Admin: 09/18/20 08:17 Dose: 30 mg Documented by: Enoxaparin Sodium (Enoxaparin Inj 30 Mg/0.3 Ml Syr) 30 mg SQ QAM [facility] Stop: 10/16/20 08:59 Last Admin: 09/18/20 08:18 Dose: 30 mg Documented by: Fish Oil ([place]-3 (Purified Fish Oil) 1 Gm Cap) 1 gm PO DAILY [facility] Stop: 10/16/20 08:59 Last Admin: 09/18/20 08:16 Dose: 1 gm Documented by: Gabapentin (Gabapentin 300 Mg Cap) 300 mg PO TID [facility] Stop: 10/15/20 20:59 Last Admin: 09/18/20 12:31 Dose: 300 mg Documented by: Ciprofloxacin (Cipro / D5w) 400 mg in 200 mls @ 100 mls/hr IV Q12H [facility]; Protocol Stop: 09/21/20 15:59 Last Admin: 09/18/20 18:10 Dose: 100 mls/hr Documented by: Lactobacillus Acidophilus (Lactobacillus Acidophilus 1 Gm Pack) 1 gm PO TIDM [facility] Stop: 10/15/20 16:59 Last Admin: 09/18/20 16:15 Dose: 1 gm Documented by: Miscellaneous (Remove Nicoderm Patch) 1 ea N/A DAILY@0859 [facility] Stop: 10/16/20 08:58 Last Admin: 09/18/20 08:19 Dose: 1 ea Documented by: Nicotine (Nicotine 21 Mg/24 Hr Tdsy) 21 mg TD QAM [facility] Stop: 10/15/20 16:14 Last Admin: 09/18/20 08:21 Dose: 21 mg Documented by: Nystatin (Nystatin Susp 500,000 U/5 Ml Udc) 5 ml PO QID [facility] Stop: 09/25/20 20:59 Last Admin: 09/18/20 16:15 Dose: 5 ml Documented by: Ondansetron HCl (Ondansetron Inj 2 Mg/Ml 2 Ml Vial) 4 mg IV Q6H PRN PRN Reason: Nausea Stop: 10/15/20 15:09 Last Admin: 09/17/20 14:33 Dose: 4 mg Documented by: Ondansetron HCl (Ondansetron 4 Mg Od Tab) 4 mg PO Q8H PRN PRN Reason: Nausea And Vomiting Stop: 10/15/20 20:00 Last Admin: 09/16/20 07:41 Dose: 4 mg Documented by: Polyethylene Glycol (Polyethylene (Miralax) 17 Gm Pack) 17 gm PO DAILY PRN PRN Reason: Constipation Stop: 10/15/20 15:09 Potassium Chloride (Potassium Chloride Crtab 20 Meq Tabcr) 40 meq PO BID [facility] Stop: 10/16/20 08:21 Last Admin: 09/18/20 08:16 Dose: 40 meq Documented by: Rizatriptan Benzoate (Rizatriptan Benzoate 10 Mg Tab) 10 mg PO DAILY PRN PRN Reason: Migraines Stop: 10/15/20 19:55 Last Admin: 09/16/20 17:01 Dose: 10 mg Documented by: Sucralfate (Sucralfate 1 Gm/10 Ml Udc) 1 gm PO Q6H [facility] Stop: 10/15/20 20:59 Last Admin: 09/18/20 16:12 Dose: 1 gm Documented by: Tizanidine HCl (Tizanidine Hcl 4 Mg Tablet) 2 mg PO BID PRN PRN Reason: Migraine Headache Stop: 10/15/20 19:55 Tramadol HCl (Tramadol Hcl 50 Mg Tablet) 50 mg PO Q8H PRN PRN Reason: Pain Stop: 10/15/20 19:55 Last Admin: 09/18/20 11:04 Dose: 50 mg Documented by: (1) Diarrhea Diarrhea type: unspecified type Qualified Code(s): R19.7 - Diarrhea, unspecified (2) Anemia Anemia type: unspecified type Qualified Code(s): D64.9 - Anemia, unspecified
[2020-09-18] MEDS: AMITRIPTYLINE HCL 25 MG TAB PO SCH (20:42)
[2020-09-19] MEDS ORDERED: SODIUM CHLORIDE 0.9% 500 ML IV ONE (00:50)
[2020-09-19 01:45] LABS: Basophils # (auto) 0.03 K/uL (0-0.2); Basophils % (auto) 0.3 %; Eosinophils # (auto) 0.08 K/uL (0-0.5); Eosinophils % (auto) 0.8 %; Hematocrit (blood only) 26.9 % (37-47); Hemoglobin 8.8 g/dL (12.0-16.0); Immature Granulocytes # (auto) 0.01 K/uL (0.00-0.02); Immature Granulocytes % (auto) 0.1 %; Lymphocytes # (auto) 1.48 K/uL (1.2-3.4); Lymphocytes % (auto) 15.6 %; Mean Corpuscular Hemoglobin 31.2 pg (25-34); Mean Corpuscular Hgb Conc 32.7 g/dL (32-36); Mean Corpuscular Volume 95.4 fL (80-100); Mean Platelet Volume 12.9 fL (7.4-10.4); Monocytes # (auto) 0.53 K/uL (0.11-0.59); Monocytes % (auto) 5.6 %; Neutrophils # (auto) 7.37 K/uL (1.4-6.5); Neutrophils % (auto) 77.6 %; Platelet Count 157 K/uL (130-400); RDW Coefficient of Variation 14.8 % (11.5-14.5); RDW Standard Deviation 52.2 fL (36.4-46.3); Red Blood Count 2.82 M/uL (4.2-5.4)
[2020-09-19 02:03] LABS: BUN Creatinine Ratio 7.5 (10-20); Calcium 7.3 mg/dl (8.5-10.1); Creatinine Clr Calc Pharmacy 27.6 ml/min; Est GFR (African American) 46.2; Est GFR (Non-African American) 39.9; Magnesium 2.1 mg/dl (1.8-2.4); Potassium 4.7 mmol/L (3.5-5.1)
[2020-09-19] MEDS: SUCRALFATE 1 GM/10 ML UDC PO SCH ×4 (02:19→20:42)
[2020-09-19] MEDS ORDERED: SODIUM CHLORIDE 0.9% 1000ML 1,000 ML IV ONE (02:53)
[2020-09-19] MEDS ORDERED: CIPROFLOXACIN CONSULT ACTIVE PRN (03:28)
[2020-09-19] MEDS: CIPROFLOXACIN / D5W 400 MG/200 ML BAG IV SCH (03:54)
[2020-09-19 06:51] LABS: Appearance Urine Clear (Clear); Bacteria Urine Automated Negative (Negative); Bilirubin Urine Negative (Negative); Blood Urine Trace (Negative); Color Urine Yellow; Epithelial Cell Urine Auto >30 /lpf (0-5); Glucose Urine UA Negative (Negative); Ketones Urine Negative (Negative); Leukocyte Esterase Urine Trace (Negative); Nitrite Urine Negative (Negative); Protein Urine Negative (Negative); RBC Urine Automated 0-4 /hpf (0-4); Specific Gravity Urine 1.013 (1.000-1.030); Urobilinogen Urine Negative (Negative); pH Urine 5.5 (4.5-7.5)
[2020-09-19] MEDS: CALCIUM CARBONATE 1250MG TAB PO SCH (08:03)
[2020-09-19] MEDS: LACTOBACILLUS ACIDOPHILUS 1 GM PACK PO SCH ×3 (08:04→17:00)
[2020-09-19] MEDS: OMEGA-3 (PURIFIED FISH OIL) 1 GM CAP PO SCH (08:04)
[2020-09-19] MEDS: NYSTATIN SUSP 500,000 U/5 ML UDC PO SCH ×4 (08:05→20:42)
[2020-09-19] MEDS: ENOXAPARIN INJ 30 MG/0.3 ML SYR SQ SCH (08:05)
[2020-09-19] MEDS: DULoxetine HCL 30 MG CAP PO SCH ×2 (08:05→20:43)
[2020-09-19] MEDS: GABAPENTIN 100 MG CAP PO SCH ×3 (08:06→20:45)
[2020-09-19] MEDS: NICOTINE 21 MG/24 HR TDSY TD SCH (08:06)
[2020-09-19] MEDS ORDERED: NAPROXEN 375 MG TAB PO STA (10:24)
--- NOTE | 2020-09-19 11:41 | CT Scan Report ---
ABDOMEN AND PELVIS CT WITHOUT CONTRAST CT DOSE: 216.71 mGycm HISTORY: Left lower quadrant abdominal pain, h/o stones TECHNIQUE: Multiaxial CT images of the abdomen and pelvis were performed without contrast. A dose lo wering technique was utilized adhering to the principles of ALARA. COMPARISON STUDY: Abdomen and pelvis CT 08/24/2020. FINDINGS: A few bibasilar linear densities consistent with subsegmental atelectasis. No pneumoperiton eum. No pneumatosis. Levoscoliosis of the thoracolumbar spine. No suspicious lytic or blastic osseous lesions. Trace right pleural effusion. A few subcentimeter hypodense lesions within the liver remain unchanged. These favor cysts. Prior cholecystectomy. The unenhanced spleen, adrenal glands, and panc reas are unremarkable. There is mild right hydroureteronephrosis secondary to an obstructing 7 mm sto ne within the mid right ureter on image 168. There is mild right perinephric edema. There are few pun ctate bilateral renal calculi. No left-sided hydronephrosis. No bladder wall thickening. The uterus a nd bilateral adnexa are within normal limits. Questionable mild thickening of the rectum with mild pe rirectal fat stranding. Moderate body wall edema. The visualized appendix is unremarkable. No retrope ritoneal lymphadenopathy. A few mildly dilated fluid-filled loops of small bowel within the pelvis. N o definite transition point on this noncontrast study. Evidence for prior gastric bypass. There is fl uid-filled and distended jejunojejunostomy site measuring up to 5.9 cm in diameter. The distal ileal loops are slightly decompressed. IMPRESSION: 1. A 7 mm obstructing stone within the mid right ureter resulting in mild right hydroureteronephrosis . 2. Bilateral nephrolithiasis. 3. Questionable mild thickening of the rectum with mild perirectal fat stranding. This could represen t a mild proctitis. 4. Mildly dilated fluid-filled loops of mid to distal small bowel within the pelvis. This includes a distended and fluid-filled jejunojejunostomy site measuring up to 5.9 cm in diameter. The distal ilea l loops are slightly decompressed. No clear transition point identified. Therefore, this could repres ent a partial small bowel obstruction versus an ileus. 5. Additional findings as described above. ACT 112: Negative or not required by law. Electronically signed by: Armando Burton M.D. 09/19/2020 11:40 AM
--- NOTE | 2020-09-19 13:25 | Electrocardiogram Report ---
Test Reason : Blood Pressure : / mmHG Vent. Rate : 079 BPM Atrial Rate : 079 BPM P-R Int : 148 ms QRS Dur : 080 ms QT Int : 358 ms P-R-T Axes : 035 000 037 degrees QTc Int : 410 ms Normal sinus rhythm Low voltage QRS Borderline ECG When compared with ECG of 15-SEP-2020 12:16, No significant change was found Confirmed by Tj Medina ([id number]) on 09/19/2020 1:25:18 PM Referred By: REFERRED SELF Confirmed By:Tj Medina
[2020-09-19] MEDS: ONDANSETRON INJ 2 MG/ML 2 ML VIAL IV PRN (13:51)
--- NOTE | 2020-09-19 15:40 | Hospitalist Progress Note ---
Date of Service September 19, 2020 Assessment & Plan (1) Hypotension: Hypotension secondary to Dehydration , secondary to Diarrhea hx of malabsorption in setting of gastric bypass resolved with IVF , now low normal BP levels, however, she became more hypotensive into the 80s systolic overnight again. ? The interaction with tizanidine and Cipro having a role in this. Cipro was switched to ceftriaxone. IVF improved BP. Now with ureteral stone, cont supportive care. (2) Ureteral stone with hydronephrosis: Pt with h/o nephrolithiasis. R ureteral stone 7mm found on CT scan. ROBINSON and UTI present. Cont ceftriaxone for now until definitive stone management per Urology. (3) Acute kidney injury: Secondary to ureteral stone. Urology consulted for treatment of this. Plan as above. (4) Hypokalemia: replaced and normal levels. (5) Diarrhea: cdiff test negative twice. Higher risk with recent antibiotic use. Pt reports no BM today, (6) Severe malnutrition: protein calorie malnutrition, consulted RD (7) History of bowel diversion surgery: history of gastric bypass continue b12 injections, has had issues with diarrhea and malabsorption in the past. (8) Anemia: chronic anemia H/H stable, no s/sx of bleeding (9) Chronic pain syndrome: Chronic abdominal pain, h/o migraines and neuropathy. Follows with pain management. continue increased bentyl, carafate follows GI - to have EGD/Colonoscopy 10/08 (10) Tobacco use: Currently on nicotine supplementation. (11) Depression with anxiety: mood stable, continue amitriptyline, duloxetine (12) Hyperparathyroidism: calcitriol per home regimen. (13) DVT prophylaxis: Lovenox Full Dispo-to home when feeling better. [facility] Admission and Anticipated Discharge Date Admission Date: September 15, 2020 Subjective 55 yo F presented with symptomatic hypotension thought secondary to Dehydration with a reported history of Diarrhea in the setting of malabsorption in setting of gastric bypass. Also has +E coli in urine and was previously admitted with urosepsis one month ago. Mg was repleted yesterday and is WNL today She is reporting feeling unwell today She has nausea and persistent abdominal pain ROBINSON has worsened and urine studies reveal a ?post-obstructive etiology CT abd revealed a 7mm ureteral stone with associated hydronephrosis and Urology was consulted. She also has had a severe headache and took some tizanidine, which interacts wi awilda Sutherland and after discussion with the pharmacist on staff here, may have been contributing or the cause of her hypotension overnight EKG checked and revealed no prolonged QTc Review of Systems Review of Systems: All systems reviewed & are unremarkable except as noted in Subjective Physical Exam Physical Exam: CONSTITUTIONAL: WNWD, vitals as above, generally ill-appearing EYES: normal conjunctivae, no scleral icterus ENT: external ear and nose normal, MMM RESPIRATORY: clear to auscultation bilaterally, no crackles, rales or wheezes, normal respiratory effort CARDIOVASCULAR: regular rate and rhythm, S1 and 2 heard without murmurs, gallops or rubs, no JVD, no peripheral edema GASTROINTESTINAL: soft, TTP in suprapubic region. Nondistended. MUSCULOSKELETAL: strength 5/5 throughout, head is normocephalic and atraumatic SKIN: warm and dry NEUROLOGIC: CN 2-12 grossly intact, normal cognition, normal speech, no gross focal deficits. PSYCHIATRIC: alert cooperative and oriented to person, place and time. Results & Data Results & Data ([facility]) Vital Signs (Past 12 Hours) Vital Signs Temp Pulse Resp BP BP Pulse Ox 09/19/20 14:32 36.9 C 80 20 105/69 96 09/19/20 07:36 36.9 C 71 20 80/55 L 97 Laboratory Results Short CBC 09/19/20 Range/Units 01:26 WBC 9.50 (4.8-10.8) K/uL Hgb 8.8 L (12.0-16.0) g/dL Hct 26.9 L (37-47) % Plt Count 157 (130-400) K/uL BMP 09/19/20 01:26 Sodium 138 Potassium 4.7 Chloride 113 H Carbon Dioxide 19 L BUN 11 Creatinine 1.45 H Glucose 99 Calcium 7.3 L Urine 09/19/20 Range/Units 06:15 Urine Color Yellow Urine Appearance Clear (Clear) Urine pH 5.5 (4.5-7.5) Ur Specific [place] 1.013 (1.000-1.030) Urine Protein Negative (Negative) Urine Glucose (UA) Negative (Negative) Diagnostic Findings CT a/p wo contrast: 1. A 7 mm obstructing stone within the mid right ureter resulting in mild right hydroureteronephrosis. 2. Bilateral nephrolithiasis. 3. Questionable mild thickening of the rectum with mild perirectal fat stranding. This could represent a mild proctitis. 4. Mildly dilated fluid-filled loops of mid to distal small bowel within the pelvis. This includes a distended and fluid-filled jejunojejunostomy site measuring up to 5.9 cm in diameter. The distal ileal loops are slightly decompressed. No clear transition point identified. Therefore, this could represent a partial small bowel obstruction versus an ileus. 5. Additional findings as described above. Medications Administered Current Inpatient Medications Acetaminophen (Acetaminophen 325 Mg Tab) 650 mg PO Q4H PRN PRN Reason: Pain or Fever Stop: 10/15/20 15:09 Acetaminophen/Butalbital/Caffeine (Butalbital/Acetamin/Caffeine Tab) 1 tab PO Q6H PRN PRN Reason: Pain Stop: 10/15/20 19:55 Last Admin: 09/18/20 16:12 Dose: 1 tab Documented by: Hydrocodone Bitart/Acetaminophen (Hydrocodone/Acetamophen 5/325mg Tab) 1 tab PO DAILY PRN PRN Reason: Severe Pain (Scale Score 7-10) Stop: 09/29/20 19:55 Last Admin: 09/18/20 08:17 Dose: 1 tab Documented by: Alprazolam (Alprazolam 0.25 Mg Tablet) 0.25 mg PO DAILY PRN PRN Reason: Anxiety Stop: 10/15/20 19:55 Amitriptyline HCl (Amitriptyline Hcl 25 Mg Tab) 25 mg PO HS [facility] Stop: 10/15/20 20:59 Last Admin: 09/18/20 20:42 Dose: 25 mg Documented by: Calcitriol (Calcitriol 0.25 Mcg Capsule) 0.25 mcg PO MoWeFr@0900 [facility] Stop: 10/16/20 08:59 Last Admin: 09/18/20 08:16 Dose: 0.25 mcg Documented by: Calcium Carbonate (Calcium Carbonate 1250mg Tab) 2,500 mg PO QDB [facility] Stop: 10/16/20 07:29 Last Admin: 09/19/20 08:03 Dose: 2,500 mg Documented by: Dicyclomine HCl (Dicyclomine Hcl 20 Mg Tab) 20 mg PO TID PRN PRN Reason: Muscle Spasm Stop: 10/15/20 19:55 Last Admin: 09/18/20 09:28 Dose: 20 mg Documented by: Diphenoxylate HCl/Atropine (Diphenoxylate/Atropine 2.5/0.025mg Tab) 1 tab PO QID PRN PRN Reason: Diarrhea Stop: 10/15/20 19:55 Duloxetine HCl (Duloxetine Hcl 30 Mg Cap) 30 mg PO BID [facility] Stop: 10/15/20 20:59 Last Admin: 09/19/20 08:05 Dose: 30 mg Documented by: Enoxaparin Sodium (Enoxaparin Inj 30 Mg/0.3 Ml Syr) 30 mg SQ QAM [facility] Stop: 10/16/20 08:59 Last Admin: 09/19/20 08:05 Dose: 30 mg Documented by: Fish Oil ([place]-3 (Purified Fish Oil) 1 Gm Cap) 1 gm PO DAILY [facility] Stop: 10/16/20 08:59 Last Admin: 09/19/20 08:04 Dose: 1 gm Documented by: Gabapentin (Gabapentin 100 Mg Cap) 200 mg PO TID [facility] Stop: 10/19/20 08:59 Last Admin: 09/19/20 13:48 Dose: 200 mg Documented by: Ceftriaxone Sodium 1,000 mg/ (Dextrose) 60 mls @ 120 mls/hr IV DAILY@2100 [facility]; Protocol Stop: 09/29/20 20:59 Lactobacillus Acidophilus (Lactobacillus Acidophilus 1 Gm Pack) 1 gm PO TIDM [facility] Stop: 10/15/20 16:59 Last Admin: 09/19/20 12:03 Dose: 1 gm Documented by: Miscellaneous (Remove Nicoderm Patch) 1 ea N/A DAILY@0859 [facility] Stop: 10/16/20 08:58 Last Admin: 09/19/20 08:03 Dose: 1 ea Documented by: Nicotine (Nicotine 21 Mg/24 Hr Tdsy) 21 mg TD QAM [facility] Stop: 10/15/20 16:14 Last Admin: 09/19/20 08:06 Dose: 21 mg Documented by: Nystatin (Nystatin Susp 500,000 U/5 Ml Udc) 5 ml PO QID [facility] Stop: 09/25/20 20:59 Last Admin: 09/19/20 12:04 Dose: 5 ml Documented by: Ondansetron HCl (Ondansetron Inj 2 Mg/Ml 2 Ml Vial) 4 mg IV Q6H PRN PRN Reason: Nausea Stop: 10/15/20 15:09 Last Admin: 09/19/20 13:51 Dose: 4 mg Documented by: Ondansetron HCl (Ondansetron 4 Mg Od Tab) 4 mg PO Q8H PRN PRN Reason: Nausea And Vomiting Stop: 10/15/20 20:00 Last Admin: 09/16/20 07:41 Dose: 4 mg Documented by: Polyethylene Glycol (Polyethylene (Miralax) 17 Gm Pack) 17 gm PO DAILY PRN PRN Reason: Constipation Stop: 10/15/20 15:09 Rizatriptan Benzoate (Rizatriptan Benzoate 10 Mg Tab) 10 mg PO DAILY PRN PRN Reason: Migraines Stop: 10/15/20 19:55 Last Admin: 09/16/20 17:01 Dose: 10 mg Documented by: Sucralfate (Sucralfate 1 Gm/10 Ml Udc) 1 gm PO Q6H [facility] Stop: 10/15/20 20:59 Last Admin: 09/19/20 13:48 Dose: 1 gm Documented by: Tramadol HCl (Tramadol Hcl 50 Mg Tablet) 50 mg PO Q8H PRN PRN Reason: Pain Stop: 10/15/20 19:55 Last Admin: 09/18/20 11:04 Dose: 50 mg Documented by: (1) Anemia Anemia type: unspecified type Qualified Code(s): D64.9 - Anemia, unspecified (2) Diarrhea Diarrhea type: unspecified type Qualified Code(s): R19.7 - Diarrhea, unspecified
[2020-09-19] MEDS: traMADol HCL 50 MG TABLET PO PRN (17:40)
[2020-09-19] MEDS: LACTATED RINGER'S 1,000 ML IV SCH (17:56)
[2020-09-19] MEDS ORDERED: ONDANSETRON INJ 2 MG/ML 2 ML VIAL IV STA (18:48)
[2020-09-19] MEDS: cefTRIAXone SODIUM 1,000 MG in DEXTROSE 5% 50 ML IV SCH (20:40)
[2020-09-19] MEDS: AMITRIPTYLINE HCL 25 MG TAB PO SCH (20:44)
[2020-09-19] MEDS: TAMSULOSIN HCL 0.4 MG CAP PO SCH (20:57)
[2020-09-19] MEDS: HYDROCODONE/ACETAMOPHEN 5/325MG TAB PO PRN (22:36)
[2020-09-20] MEDS: SUCRALFATE 1 GM/10 ML UDC PO SCH ×4 (02:31→21:38)
[2020-09-20 07:29] LABS: BUN Creatinine Ratio 10.7 (10-20); Calcium 7.8 mg/dl (8.5-10.1); Creatinine Clr Calc Pharmacy 23.7 ml/min; Est GFR (African American) 38.4; Est GFR (Non-African American) 33.1; Magnesium 1.7 mg/dl (1.8-2.4)
[2020-09-20] MEDS: LACTATED RINGER'S 1,000 ML IV SCH ×2 (07:51→21:41)
[2020-09-20] MEDS: LACTOBACILLUS ACIDOPHILUS 1 GM PACK PO SCH ×3 (07:53→16:43)
--- NOTE | 2020-09-20 08:08 | Urology Consultation ---
Date of Consultation September 20, 2020 Assessment & Plan (1) Ureteral stone with hydronephrosis: Obstructing right ureteral calculus Rising creatininecurrently 1.69 this is now been rising for 3 consecutive days White blood cell count 9.5 She had a culture on 09/15 which was E. coli positiveshe has been treated with antibiotics She has not manifested symptoms of sepsis/bacteremia aside from some hypotension She remains on antibiotics now I have offered her cystoscopy and ureteral stent placement todayshe has declined this offer She would like to have definitive therapy in the form of ureteroscopy and laser lithotripsyI have explained that our schedule may not be able to accommodate that over the next 24 to 48 hours, and stent placement may be a necessity given the creatinine We will plan to make her n.p.o. after midnight, if her creatinine rises substantially even if we cannot definitively treat her stone we likely need to intervene History of Present Illness Attending Physician: Lidia Michaels, DO History of Present Illness 55-year-old female with an obstructing right ureteral calculus and symptoms She has had intermittent hypotension She had somewhat delayed diagnosis of the stone and was treated for UTI for several days prior to imaging identifying the stone We reviewed her stone historyshe last had a stone treated approximately 10 year s ago She does have a history of gastric bypass approximately 20 years ago and also previously was on Topamax which was believed to be the cause of her stones at that time She remains symptomatic but reports her symptoms are tolerable enough that she would greatly prefer to avoid staged surgeries with stent followed by definitive stone treatment and try to wait until she could have definitive stone therapy in the form of cystoscopy, ureteroscopy as a solitary treatment I have offered her chance to do this as an outpatient but she would like to stay in the hospital and await the opportunity I have discussed that our schedule is not a guarantee that we can fit her in this week, she understands that Allergies Allergy/AdvReac Type Severity Reaction Status Date / Time Penicillins Allergy Unknown ? REACTION Verified 09/15/20 12:51 Sulfa (Sulfonamide Allergy Unknown Unknown Verified 09/15/20 12:51 Antibiotics) reaction aspirin AdvReac Mild No an Verified 09/15/20 12:51 allergy- cannot take post-bypass surgery ragweed pollen AdvReac Mild swelling Verified 09/15/20 12:51 Home Medications Medication Instructions Recorded Confirmed Type tramadol 50 mg PO Q8H PRN #0 tab 03/29/13 09/15/20 History ergocalciferol (vitamin D2) 50,000 unit PO WK #0 cap 11/26/13 09/15/20 History cyanocobalamin (vitamin B-12) 1 dose IM MONTHLY #0 06/11/14 09/15/20 History diphenoxylate-atropine [Lomotil] 1 tab PO QID PRN #0 tab 08/02/16 09/15/20 History amitriptyline 25 mg tablet 25 mg PO HS tab 11/06/18 09/15/20 History rizatriptan 10 mg tablet 10 mg PO DAILY PRN tab 11/06/18 09/15/20 History fremanezumab-vfrm 225 mg/1.5 mL 225 mg SQ MONTHLY ml 04/15/19 09/15/20 History subcutaneous syringe alprazolam 0.25 mg PO DAILY PRN 06/28/19 09/15/20 History lijpjrzpzn-nyqxwkcgwbprk-mbma 1 tab PO Q6H PRN 06/28/19 09/15/20 History calcium carbonate [Oysco-500] 1,000 mg PO DAILY 06/28/19 09/15/20 History omega-3 fatty acids 1,000 mg 1,000 mg PO DAILY 07/25/19 09/15/20 History capsule duloxetine 30 mg capsule,delayed 30 mg PO BID cap 10/29/19 09/15/20 History release gabapentin 100 mg capsule 300 mg PO TID #0 cap 10/29/19 09/15/20 History ondansetron HCl 4 mg tablet 4 mg PO Q8H PRN 10/29/19 09/15/20 History tizanidine 4 mg tablet 2 mg PO BID PRN 10/29/19 09/15/20 History acetaminophen 500 mg PO Q4H PRN 08/23/20 09/15/20 History calcitriol 0.25 mcg PO MOWEFR 08/23/20 09/15/20 History hydrocodone-acetaminophen 1 tab PO DAILY PRN 08/23/20 09/15/20 History dicyclomine 20 mg PO TID PRN #90 tab 08/26/20 09/15/20 Rx sucralfate [Carafate] 1 g PO Q6H 28 Days #1120 ml 08/27/20 09/15/20 Rx Patient History Medical History Anemia Copper deficiency Malabsorption Migraine headache Zinc poisoning Surgical History History of bowel diversion surgery History of cholecystectomy History of gastric bypass Hx of cardiac cath jul 01 2019 Family History Mother Coronary heart disease Social History Smoking Status: Current every day smoker packs per day: 1; Cigarettes Per Day: 20-30; Second Hand Exposure: Yes; Do You Dip or Chew Tobacco: No; Tobacco Cessation Education Requested by Patient: No Hx Alcohol Use: No Hx Substance Use: No Preferred Language: Kittitian Communication Ability: Effective Visual Impairment: No Limitations Hearing Ability: Normal Iron Pourer Required: No Beliefs That Will Affect Care: None marital status: Current Living Situation: Spouse Current Living Situation Comment: in middle of divorce current occupational status: disabled 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- [employer] Other Information That Helps Us Care for You: No Feels Safe at Home: Hesitant to Answer Safety Concerns: Feels Safe At This Time Assistive Devices: None Review of Systems Constitutional: no fever, no chills and no fatigue Eyes: no worsening vision Ear, Nose, Mouth, Throat: no facial pain and no pain with swallowing Respiratory: no cough and no dyspnea Cardiovascular: no chest pain and no palpitations Gastrointestinal: no abdominal pain, no nausea and no vomiting Genitourinary: no dysuria, no difficulty urinating, no urinary frequency and no hematuria Musculoskeletal: no back pain Integumentary: no rash and no urticaria Neurologic: no gait abnormality and no unsteadiness Psychiatric: no behavioral changes and no depression Endocrine: no fatigue Physical Exam Constitutional: well developed and well nourished Very small person but healthy-appearing and in no extremis Neck: neck nontender Respiratory: normal respiratory effort; no respiratory distress and does not use accessory muscles Cardiovascular: Rate/Rhythm: regular rate Vessels: radial pulses present Extremities: no edema Gastrointestinal (Abdomen): Inspection/Auscultation: abdomen normal to inspection Percussion/Palpation: abdomen soft; abdomen nontender and no guarding Musculoskeletal: Head/Neck/Chest: normocephalic and head atraumatic Extremities: extremities normal to inspection Skin: no rashes and no lesions Trauma: no evidence of skin trauma Neurologic: awake; not obtunded Speech / Cognition: normal speech Motor/Sensory: no tremor Psychiatric: Orientation: alert and oriented x 3 Lymphatic: no lymphadenopathy Results & Data ([facility]) Vital Signs (Past 12 Hours) Vital Signs Temp Pulse Resp BP BP Pulse Ox 09/20/20 04:09 36.5 C 88 18 93/60 L 98 09/19/20 22:49 36.6 C 69 18 98/61 L 99 PG Care Time/CCT Total # of Minutes Spent Total Time Spent with Patient: Total time spent is greater than 50% in coordi nation of care (as documented) at patient's floor/unit and/or counseling patient: Coding Level of Care Code 18046 Inpt Consult Level 4 Diagnoses Ureteral stone with hydronephrosis N13.2
[2020-09-20] MEDS: CALCIUM CARBONATE 1250MG TAB PO SCH (08:30)
[2020-09-20] MEDS: OMEGA-3 (PURIFIED FISH OIL) 1 GM CAP PO SCH (08:30)
[2020-09-20] MEDS: ENOXAPARIN INJ 30 MG/0.3 ML SYR SQ SCH (08:30)
[2020-09-20] MEDS: NYSTATIN SUSP 500,000 U/5 ML UDC PO SCH ×4 (08:30→21:38)
[2020-09-20] MEDS: DULoxetine HCL 30 MG CAP PO SCH ×2 (08:34→21:39)
[2020-09-20] MEDS: GABAPENTIN 100 MG CAP PO SCH ×3 (08:34→21:39)
[2020-09-20] MEDS: NICOTINE 21 MG/24 HR TDSY TD SCH (08:35)
--- NOTE | 2020-09-20 10:44 | Hospitalist Progress Note ---
Date of Service September 20, 2020 Assessment & Plan (1) Hypotension: Hypotension secondary to Dehydration , secondary to Diarrhea hx of malabsorption in setting of gastric bypass resolved with IVF and holding tizanidine. (2) Ureteral stone with hydronephrosis: Pt with h/o nephrolithiasis. R ureteral stone 7mm found on CT scan. ROBINSON and UTI present. Cont ceftriaxone for now until definitive stone management per Urology. Pt will likely undergo ureteroscopy with laser lithotripsy in the next 24-48 hrs. (3) Acute kidney injury: Secondary to ureteral stone. Urology consulted for treatment of this. Plan as above. (4) Hypokalemia: replaced and normal levels. (5) Diarrhea: cdiff test negative twice. IBS, cont with Bentyl PRN for now pending further GI workup. (6) Severe malnutrition: protein calorie malnutrition, consulted RD (7) History of bowel diversion surgery: history of gastric bypass continue b12 injections, has had issues with diarrhea and malabsorption in the past. (8) Anemia: chronic anemia H/H stable, no s/sx of bleeding (9) Chronic pain syndrome: Chronic abdominal pain, h/o migraines and neuropathy. Follows with pain management. continue increased bentyl, carafate follows GI - to have EGD/Colonoscopy 10/08 (10) Tobacco use: Currently on nicotine supplementation. (11) Depression with anxiety: mood stable, continue amitriptyline, duloxetine (12) Hyperparathyroidism: calcitriol per home regimen. (13) DVT prophylaxis: Lovenox Full Dispo-plan for home after definitive stone therapy likely in the next 24 to 48 hours. Lidia Michaels DO [facility] Hospitalist Admission and Anticipated Discharge Date Admission Date: September 15, 2020 Subjective 55 yo F presented with symptomatic hypotension thought secondary to Dehydration with a reported history of Diarrhea in the setting of malabsorption in setting of gastric bypass. Also has +E coli in urine and was previously admitted with urosepsis one month ago. Blood pressure has improved off tizanidine. She continues to report ureteral colic type symptoms. Urology offered stent placement today, however patient deferred to have definitive therapy in the form of ureteroscopy and laser lithotripsy possibly in the next 24 to 48 hours. She is tolerating p.o., afebrile and otherwise doing well. Review of Systems Review of Systems: All systems reviewed & are unremarkable except as noted in Subjective Physical Exam Physical Exam: CONSTITUTIONAL: WNWD, vitals as above, generally well-ap pearing EYES: normal conjunctivae, no scleral icterus ENT: external ear and nose normal, MMM RESPIRATORY: clear to auscultation bilaterally, no crackles, rales or wheezes, normal respiratory effort CARDIOVASCULAR: regular rate and rhythm, S1 and 2 heard without murmurs, gallops or rubs, no JVD, no peripheral edema GASTROINTESTINAL: soft, TTP in suprapubic region. Nondistended. +L CVA tendern ess MUSCULOSKELETAL: strength 5/5 throughout, head is normocephalic and atraumatic SKIN: warm and dry NEUROLOGIC: CN 2-12 grossly intact, normal cognition, normal speech, no gross focal deficits. PSYCHIATRIC: alert cooperative and oriented to person, place and time. Results & Data Results & Data ([facility]) Vital Signs (Past 12 Hours) Vital Signs Temp Pulse Pulse Resp BP BP Pulse Ox 09/20/20 08:21 36.5 C 71 20 104/67 94 09/20/20 08:00 73 09/20/20 04:09 36.5 C 88 18 93/60 L 98 09/19/20 22:49 36.6 C 69 18 98/61 L 99 Laboratory Results BMP 09/20/20 06:57 Sodium 140 Potassium 4.0 Chloride 115 H Carbon Dioxide 19 L BUN 18 D Creatinine 1.69 H Glucose 89 Calcium 7.8 L Medications Administered Current Inpatient Medications Acetaminophen (Acetaminophen 325 Mg Tab) 650 mg PO Q4H PRN PRN Reason: Pain or Fever Stop: 10/15/20 15:09 Acetaminophen/Butalbital/Caffeine (Butalbital/Acetamin/Caffeine Tab) 1 tab PO Q6H PRN PRN Reason: Pain Stop: 10/15/20 19:55 Last Admin: 09/18/20 16:12 Dose: 1 tab Documented by: Hydrocodone Bitart/Acetaminophen (Hydrocodone/Acetamophen 5/325mg Tab) 1 tab PO DAILY PRN PRN Reason: Severe Pain (Scale Score 7-10) Stop: 09/29/20 19:55 Last Admin: 09/19/20 22:36 Dose: 1 tab Documented by: Alprazolam (Alprazolam 0.25 Mg Tablet) 0.25 mg PO DAILY PRN PRN Reason: Anxiety Stop: 10/15/20 19:55 Amitriptyline HCl (Amitriptyline Hcl 25 Mg Tab) 25 mg PO HS [facility] Stop: 10/15/20 20:59 Last Admin: 09/19/20 20:44 Dose: 25 mg Documented by: Calcitriol (Calcitriol 0.25 Mcg Capsule) 0.25 mcg PO MoWeFr@0900 [facility] Stop: 10/16/20 08:59 Last Admin: 09/18/20 08:16 Dose: 0.25 mcg Documented by: Calcium Carbonate (Calcium Carbonate 1250mg Tab) 2,500 mg PO QDB [facility] Stop: 10/16/20 07:29 Last Admin: 09/20/20 08:30 Dose: Not Given Documented by: Dicyclomine HCl (Dicyclomine Hcl 20 Mg Tab) 20 mg PO TID PRN PRN Reason: Muscle Spasm Stop: 10/15/20 19:55 Last Admin: 09/18/20 09:28 Dose: 20 mg Documented by: Diphenoxylate HCl/Atropine (Diphenoxylate/Atropine 2.5/0.025mg Tab) 1 tab PO QID PRN PRN Reason: Diarrhea Stop: 10/15/20 19:55 Duloxetine HCl (Duloxetine Hcl 30 Mg Cap) 30 mg PO BID [facility] Stop: 10/15/20 20:59 Last Admin: 09/20/20 08:34 Dose: 30 mg Documented by: Enoxaparin Sodium (Enoxaparin Inj 30 Mg/0.3 Ml Syr) 30 mg SQ QAM [facility] Stop: 10/16/20 08:59 Last Admin: 09/20/20 08:30 Dose: Not Given Documented by: Fish Oil ([place]-3 (Purified Fish Oil) 1 Gm Cap) 1 gm PO DAILY [facility] Stop: 10/16/20 08:59 Last Admin: 09/20/20 08:30 Dose: Not Given Documented by: Gabapentin (Gabapentin 100 Mg Cap) 200 mg PO TID [facility] Stop: 10/19/20 08:59 Last Admin: 09/20/20 08:34 Dose: 200 mg Documented by: Ceftriaxone Sodium 1,000 mg/ (Dextrose) 60 mls @ 120 mls/hr IV DAILY@2100 [facility]; Protocol Stop: 09/29/20 20:59 Last Infusion: 09/19/20 21:59 Dose: Infused Documented by: Lactated Ringer's (Lr) 1,000 mls @ 80 mls/hr IV .[id number] [facility] Stop: 10/19/20 17:44 Last Admin: 09/20/20 07:51 Dose: 80 mls/hr Documented by: Lactobacillus Acidophilus (Lactobacillus Acidophilus 1 Gm Pack) 1 gm PO TIDM [facility] Stop: 10/15/20 16:59 Last Admin: 09/20/20 07:53 Dose: Not Given Documented by: Miscellaneous (Remove Nicoderm Patch) 1 ea N/A DAILY@0859 [facility] Stop: 10/16/20 08:58 Last Admin: 09/20/20 08:30 Dose: 1 ea Documented by: Nicotine (Nicotine 21 Mg/24 Hr Tdsy) 21 mg TD QAM [facility] Stop: 10/15/20 16:14 Last Admin: 09/20/20 08:35 Dose: 21 mg Documented by: Nystatin (Nystatin Susp 500,000 U/5 Ml Udc) 5 ml PO QID [facility] Stop: 09/25/20 20:59 Last Admin: 09/20/20 08:30 Dose: Not Given Documented by: Ondansetron HCl (Ondansetron Inj 2 Mg/Ml 2 Ml Vial) 4 mg IV Q6H PRN PRN Reason: Nausea Stop: 10/15/20 15:09 Last Admin: 09/19/20 13:51 Dose: 4 mg Documented by: Ondansetron HCl (Ondansetron 4 Mg Od Tab) 4 mg PO Q8H PRN PRN Reason: Nausea And Vomiting Stop: 10/15/20 20:00 Last Admin: 09/16/20 07:41 Dose: 4 mg Documented by: Polyethylene Glycol (Polyethylene (Miralax) 17 Gm Pack) 17 gm PO DAILY PRN PRN Reason: Constipation Stop: 10/15/20 15:09 Rizatriptan Benzoate (Rizatriptan Benzoate 10 Mg Tab) 10 mg PO DAILY PRN PRN Reason: Migraines Stop: 10/15/20 19:55 Last Admin: 09/16/20 17:01 Dose: 10 mg Documented by: Sucralfate (Sucralfate 1 Gm/10 Ml Udc) 1 gm PO Q6H [facility] Stop: 10/15/20 20:59 Last Admin: 09/20/20 08:30 Dose: Not Given Documented by: Tamsulosin HCl (Tamsulosin Hcl 0.4 Mg Cap) 0.4 mg PO HS [facility] Stop: 10/19/20 20:59 Last Admin: 09/19/20 20:57 Dose: 0.4 mg Documented by: Tramadol HCl (Tramadol Hcl 50 Mg Tablet) 50 mg PO Q8H PRN PRN Reason: Pain Stop: 10/15/20 19:55 Last Admin: 09/19/20 17:40 Dose: 50 mg Documented by: (1) Anemia Anemia type: unspecified type Qualified Code(s): D64.9 - Anemia, unspecified (2) Diarrhea Diarrhea type: unspecified type Qualified Code(s): R19.7 - Diarrhea, unspecified
[2020-09-20] MEDS: ONDANSETRON INJ 2 MG/ML 2 ML VIAL IV PRN (12:11)
[2020-09-20] MEDS: traMADol HCL 50 MG TABLET PO PRN (12:11)
[2020-09-20] MEDS ORDERED: MoRPHine SULFATE 2 MG/ML CARP IV STA (17:49)
[2020-09-20] MEDS: cefTRIAXone SODIUM 1,000 MG in DEXTROSE 5% 50 ML IV SCH (21:38)
[2020-09-20] MEDS: HYDROCODONE/ACETAMOPHEN 5/325MG TAB PO PRN (21:39)
[2020-09-20] MEDS: TAMSULOSIN HCL 0.4 MG CAP PO SCH (21:40)
[2020-09-20] MEDS: AMITRIPTYLINE HCL 25 MG TAB PO SCH (21:40)
[2020-09-21] MEDS: SUCRALFATE 1 GM/10 ML UDC PO SCH ×4 (04:34→21:19)
[2020-09-21] MEDS: LACTOBACILLUS ACIDOPHILUS 1 GM PACK PO SCH ×3 (08:02→17:10)
[2020-09-21] MEDS: GABAPENTIN 100 MG CAP PO SCH ×3 (08:02→21:21)
[2020-09-21] MEDS: NICOTINE 21 MG/24 HR TDSY TD SCH (08:02)
[2020-09-21] MEDS: OMEGA-3 (PURIFIED FISH OIL) 1 GM CAP PO SCH (08:02)
[2020-09-21] MEDS: DULoxetine HCL 30 MG CAP PO SCH ×2 (08:02→21:20)
[2020-09-21] MEDS: LACTATED RINGER'S 1,000 ML IV SCH (08:03)
[2020-09-21] MEDS: CALCITRIOL 0.25 MCG CAPSULE PO SCH (08:03)
[2020-09-21] MEDS: NYSTATIN SUSP 500,000 U/5 ML UDC PO SCH ×4 (08:03→21:20)
[2020-09-21] MEDS: CALCIUM CARBONATE 1250MG TAB PO SCH (08:04)
[2020-09-21] MEDS: ENOXAPARIN INJ 30 MG/0.3 ML SYR SQ SCH (08:04)
[2020-09-21 08:06] LABS: BUN Creatinine Ratio 10.3 (10-20); Calcium 8.2 mg/dl (8.5-10.1); Creatinine Clr Calc Pharmacy 22.4 ml/min; Est GFR (African American) 35.8; Est GFR (Non-African American) 30.9; Magnesium 1.5 mg/dl (1.8-2.4); Phosphorus 3.6 mg/dl (2.5-4.9); Potassium 4.1 mmol/L (3.5-5.1)
--- NOTE | 2020-09-21 08:55 | Urology Progress Note ---
Date of Service September 21, 2020 Assessment & Plan (1) Ureteral stone with hydronephrosis: Obstructing right ureteral calculus Rising creatininecurrently 1.79 - has been rising for 4 consecutive days White blood cell count 9.5 (09/19) She had a culture on 09/15 which was E. coli positiveshe has been treated with antibiotics - on IV Ceftriaxone now She has not manifested symptoms of sepsis/bacteremia aside from some hypotension, which now appears to be improved Patient is agreeable to surgical intervention today Keep NPO Findings reviewed with Dr. Farias. Given her elevated creatinine in the context of an obstructing 7mm right ureteral stone, will proceed with OR for cystoscopy, Right retrograde pyelogram and Right stent placement, possible ureteroscopy, laser lithotripsy, stone basketing, possible ureteral dilation depending on findings. Risks and benefits to be reviewed with patient by Dr. Farias. OR notified. CXR and EKG in chart. COVID testing negative. Will cover with IV Ceftriaxone preoperatively. ATTENDING NOTE: Independently evaluated and assessed and discussed. Risks and benefits discussed at length for procedure. These include bleeding, infection, injury to surrounding tissues or organs, and risks associated with anesthesia. Patient states understanding and agrees to proceed. Will sign consent and proceed. Cystoscopy with right ureteroscopy. Admission and Anticipated Discharge Date Admission Date: September 15, 2020 Subjective Awake, alert, and resting in bed. No acute issues overnight. Denies stone passage. Continues to have right flank pain. No dysuria or hematuria. No f/c/n/v. Chart review: Afebrile. Creatinine 1.79, WBC 9.5 (09/19). On IV Ceftriaxone. Review of Systems Constitutional: as per Subjective / HPI Gastrointestinal: as per Subjective / HPI Genitourinary: as per Subjective / HPI Physical Exam Constitutional: well developed and well nourished; no acute distress and not ill appearing Respiratory: normal respiratory effort and able to speak in complete sentences; no respiratory distress and no labored breathing Cardiovascular: Extremities: no pedal edema Gastrointestinal (Abdomen): Inspection/Auscultation: abdomen normal to inspection; abdomen not distended Musculoskeletal: Head/Neck/Chest: normocephalic and head atraumatic Skin: no rashes, warm and dry Neurologic: moves all extremities and awake Psychiatric: Orientation: alert and oriented x 3 Results & Data ([facility]) Vital Signs (Past 12 Hours) Vital Signs Temp Pulse Resp BP BP Pulse Ox 09/21/20 07:13 36.6 C 70 16 111/72 95 09/21/20 04:00 36.5 C 70 18 108/73 92 09/20/20 23:00 36.7 C 77 18 104/77 94 PG Care Time/CCT Total # of Minutes Spent Total Time Spent with Patient: Total time spent is greater than 50% in coordination of care (as documented) at patient's floor/unit and/or counseling patient: Coding Level of Care Code 78005 Subseq Hosp Care Lvl 2 Diagnoses Ureteral stone with hydronephrosis N13.2
[2020-09-21] MEDS ORDERED: MAGNESIUM SULFATE 50% 4 GM in SODIUM CHLORIDE 0.9% 500 ML IV SCH (09:00)
--- NOTE | 2020-09-21 09:24 | Hospitalist Progress Note ---
Date of Service September 21, 2020 Assessment & Plan (1) Hypotension: Hypotension secondary to Dehydration , secondary to Diarrhea hx of malabsorption in setting of gastric bypass resolved with IVF and holding tizanidine. (2) Ureteral stone with hydronephrosis: Pt with h/o nephrolithiasis. R ureteral stone 7mm found on CT scan. ROBINSON and UTI present. Cont ceftriaxone. Uro procedure today with significant post operative pain. B&O suppositories, ditropan PRN, pyridium scheduled, flomax scheduled. Pain meds PRN. (3) Acute kidney injury: Secondary to ureteral stone. Urology consulted for treatment of this with stone management. Some worsening of creatinine noted on BMP this morning. Plan as above. (4) Diarrhea: cdiff test negative twice. IBS, cont with Bentyl PRN for now pending further GI workup. (5) Severe malnutrition: protein calorie malnutrition, consulted RD (6) History of bowel diversion surgery: history of gastric bypass continue b12 injections, has had issues with diarrhea and malabsorption in the past. (7) Anemia: chronic anemia H/H stable, no s/sx of bleeding (8) Chronic pain syndrome: Chronic abdominal pain, h/o migraines and neuropathy. Follows with pain management. continue increased bentyl, carafate follows GI - to have EGD/Colonoscopy 10/08 (9) Tobacco use: Currently on nicotine supplementation. (10) Depression with anxiety: mood stable, continue amitriptyline, duloxetine (11) Hyperparathyroidism: calcitriol per home regimen. (12) DVT prophylaxis: Lovenox Full Dispo-plan for home when feeling better and renal function has improved to baseline. Lidia Michaels DO [facility] Hospitalist Admission and Anticipated Discharge Date Admission Date: September 15, 2020 Subjective 55 yo F presented with symptomatic hypotension thought secondary to Dehydration with a reported history of Diarrhea in the setting of malabsorption in setting o f gastric bypass. Also has +E coli in urine and was previously admitted with urosepsis one month ago. Found to have ureteral stone, set to undergo ureteroscopy with laser lithotripsy today. significant pain after procedure, worse than going in Review of Systems Review of Systems: limited ROS obtained as she is in moderate distress Physical Exam Physical Exam: CONSTITUTIONAL: WNWD, vitals as above, moderate distress, holding her abdomen on the left side EYES: normal conjunctivae, no scleral icterus ENT: external ear and nose normal, MMM RESPIRATORY: clear to auscultation bilaterally, no crackles, rales or wheezes, normal respiratory effort CARDIOVASCULAR: regular rate and rhythm, S1 and 2 heard without murmurs, gallops or rubs, no JVD, no peripheral edema GASTROINTESTINAL: soft, left side. Nondistended. +L CVA tenderness MUSCULOSKELETAL: strength 5/5 throughout, head is normocephalic and atraumatic SKIN: warm and dry NEUROLOGIC: CN 2-12 grossly intact, normal cognition, normal speech, no gross focal deficits. PSYCHIATRIC: alert cooperative and oriented to person, place and time. Results & Data Results & Data ([facility]) Vital Signs (Past 12 Hours) Vital Signs Temp Pulse Resp BP BP Pulse Ox 09/21/20 07:13 36.6 C 70 16 111/72 95 09/21/20 04:00 36.5 C 70 18 108/73 92 09/20/20 23:00 36.7 C 77 18 104/77 94 Laboratory Results [facility] 09/21/20 06:41 Sodium 140 Potassium 4.1 Chloride 112 H Carbon Dioxide 23 BUN 18 Creatinine 1.79 H Glucose 76 Calcium 8.2 L Medications Administered Current Inpatient Medications Acetaminophen (Acetaminophen 325 Mg Tab) 650 mg PO Q4H PRN PRN Reason: Pain or Fever Stop: 10/15/20 15:09 Acetaminophen/Butalbital/Caffeine (Butalbital/Acetamin/Caffeine Tab) 1 tab PO Q6H PRN PRN Reason: Pain Stop: 10/15/20 19:55 Last Admin: 09/18/20 16:12 Dose: 1 tab Documented by: Hydrocodone Bitart/Acetaminophen (Hydrocodone/Acetamophen 5/325mg Tab) 1 tab PO DAILY PRN PRN Reason: Severe Pain (Scale Score 7-10) Stop: 09/29/20 19:55 Last Admin: 09/20/20 21:39 Dose: 1 tab Documented by: Alprazolam (Alprazolam 0.25 Mg Tablet) 0.25 mg PO DAILY PRN PRN Reason: Anxiety Stop: 10/15/20 19:55 Last Admin: 09/20/20 16:47 Dose: 0.25 mg Documented by: Amitriptyline HCl (Amitriptyline Hcl 25 Mg Tab) 25 mg PO HS ALEKS Stop: 10/15/20 20:59 Last Admin: 09/20/20 21:40 Dose: 25 mg Documented by: Calcitriol (Calcitriol 0.25 Mcg Capsule) 0.25 mcg PO MoWeFr@0900 [facility] Stop: 10/16/20 08:59 Last Admin: 09/21/20 08:03 Dose: 0.25 mcg Documented by: Calcium Carbonate (Calcium Carbonate 1250mg Tab) 2,500 mg PO QDB [facility] Stop: 10/16/20 07:29 Last Admin: 09/21/20 08:04 Dose: 2,500 mg Documented by: Dicyclomine HCl (Dicyclomine Hcl 20 Mg Tab) 20 mg PO TID PRN PRN Reason: Muscle Spasm Stop: 10/15/20 19:55 Last Admin: 09/18/20 09:28 Dose: 20 mg Documented by: Diphenoxylate HCl/Atropine (Diphenoxylate/Atropine 2.5/0.025mg Tab) 1 tab PO QID PRN PRN Reason: Diarrhea Stop: 10/15/20 19:55 Duloxetine HCl (Duloxetine Hcl 30 Mg Cap) 30 mg PO BID [facility] Stop: 10/15/20 20:59 Last Admin: 09/21/20 08:02 Dose: 30 mg Documented by: Enoxaparin Sodium (Enoxaparin Inj 30 Mg/0.3 Ml Syr) 30 mg SQ QAM [facility] Stop: 10/16/20 08:59 Last Admin: 09/21/20 08:04 Dose: 30 mg Documented by: Fish Oil (Pacoima-3 (Purified Fish Oil) 1 Gm Cap) 1 gm PO DAILY [facility] Stop: 10/16/20 08:59 Last Admin: 09/21/20 08:02 Dose: 1 gm Documented by: Gabapentin (Gabapentin 100 Mg Cap) 200 mg PO TID [facility] Stop: 10/19/20 08:59 Last Admin: 09/21/20 08:02 Dose: 200 mg Documented by: Ceftriaxone Sodium 1,000 mg/ (Dextrose) 60 mls @ 120 mls/hr IV DAILY@2100 ALEKS; Protocol Stop: 09/29/20 20:59 Last Infusion: 09/20/20 23:37 Dose: Infused Documented by: Lactated Ringer's (Lr) 1,000 mls @ 80 mls/hr IV .[id number] [facility] Stop: 10/19/20 17:44 Last Admin: 09/21/20 08:03 Dose: 80 mls/hr Documented by: Magnesium Sulfate 4 gm/ Sodium (Chloride) 508 mls @ 125 mls/hr IV .Q4H4M [facility] Stop: 09/21/20 13:00 Lactobacillus Acidophilus (Lactobacillus Acidophilus 1 Gm Pack) 1 gm PO TIDM [facility] Stop: 10/15/20 16:59 Last Admin: 09/21/20 08:02 Dose: Not Given Documented by: Miscellaneous (Remove Nicoderm Patch) 1 ea N/A DAILY@0859 [facility] Stop: 10/16/20 08:58 Last Admin: 09/21/20 08:04 Dose: 1 ea Documented by: Morphine Sulfate (Morphine Sulfate 2 Mg/Ml Carp) 2 mg IV Q4H PRN PRN Reason: Pain Stop: 10/05/20 09:07 Nicotine (Nicotine 21 Mg/24 Hr Tdsy) 21 mg TD QAM [facility] Stop: 10/15/20 16:14 Last Admin: 09/21/20 08:02 Dose: 21 mg Documented by: Nystatin (Nystatin Susp 500,000 U/5 Ml Udc) 5 ml PO QID [facility] Stop: 09/25/20 20:59 Last Admin: 09/21/20 08:03 Dose: Not Given Documented by: Ondansetron HCl (Ondansetron Inj 2 Mg/Ml 2 Ml Vial) 4 mg IV Q6H PRN PRN Reason: Nausea Stop: 10/15/20 15:09 Last Admin: 09/20/20 12:11 Dose: 4 mg Documented by: Ondansetron HCl (Ondansetron 4 Mg Od Tab) 4 mg PO Q8H PRN PRN Reason: Nausea And Vomiting Stop: 10/15/20 20:00 Last Admin: 09/16/20 07:41 Dose: 4 mg Documented by: Polyethylene Glycol (Polyethylene (Miralax) 17 Gm Pack) 17 gm PO DAILY PRN PRN Reason: Constipation Stop: 10/15/20 15:09 Rizatriptan Benzoate (Rizatriptan Benzoate 10 Mg Tab) 10 mg PO DAILY PRN PRN Reason: Migraines Stop: 10/15/20 19:55 Last Admin: 09/16/20 17:01 Dose: 10 mg Documented by: Sucralfate (Sucralfate 1 Gm/10 Ml Udc) 1 gm PO Q6H [facility] Stop: 10/15/20 20:59 Last Admin: 09/21/20 04:34 Dose: Not Given Documented by: Tamsulosin HCl (Tamsulosin Hcl 0.4 Mg Cap) 0.4 mg PO HS [facility] Stop: 10/19/20 20:59 Last Admin: 09/20/20 21:40 Dose: 0.4 mg Documented by: Tramadol HCl (Tramadol Hcl 50 Mg Tablet) 50 mg PO Q8H PRN PRN Reason: Pain Stop: 10/15/20 19:55 Last Admin: 09/20/20 12:11 Dose: 50 mg Documented by: (1) Anemia Anemia type: unspecified type Qualified Code(s): D64.9 - Anemia, unspecified (2) Diarrhea Diarrhea type: unspecified type Qualified Code(s): R19.7 - Diarrhea, unspecified
[2020-09-21] MEDS: MoRPHine SULFATE 2 MG/ML CARP IV PRN ×3 (09:43→23:50)
[2020-09-21] MEDS ORDERED: fentaNYL citrate 100 MCG/2 ML VIAL ONE (14:37)
[2020-09-21] MEDS ORDERED: ONDANSETRON INJ 2 MG/ML 2 ML VIAL ONE (14:37)
[2020-09-21] MEDS ORDERED: PROPOFOL IV EMULSION 10 MG/ML 20 ML VIAL IV ONE (14:37)
[2020-09-21] MEDS ORDERED: MIDAZOLAM HCL 1 MG/ML 2ML VIAL ONE (14:37)
[2020-09-21] MEDS ORDERED: LIDOCAINE HCL 2% 2 ML VIAL/AMP(20MG/ML) INFIL ONE (14:37)
--- NOTE | 2020-09-21 14:47 | Anesthesiology Consultation ---
Date of Service September 21, 2020 Assessment & Plan (1) Encounter for pre-operative examination: Chart Review Chart Review: Acceptable Risk for Surgery and Patient NOT seen in Pre Admission Testing Consults Requested none History Surgery Operation Date: 09/20/20 14:00 Proposed Procedures p Ureteral Stent Insertion/Removal - Mauro Goldstein MD Operation Date: 09/21/20 14:10 Proposed Procedures p Cystoscopy, Right Ureteroscopy, Possible Stone Treatment, Right Stent Placement - Suhail Farias DO Height/Weight Height: 4 ft 10 in Weight: 45.1 kg Allergies Allergy/AdvReac Type Severity Reaction Status Date / Time Penicillins Allergy Unknown ? REACTION Verified 09/15/20 12:51 Sulfa (Sulfonamide Allergy Unknown Unknown Verified 09/15/20 12:51 Antibiotics) reaction aspirin AdvReac Mild No an Verified 09/15/20 12:51 allergy- cannot take post-bypass surgery ragweed pollen AdvReac Mild swelling Verified 09/15/20 12:51 Medications Home Medications Medication Instructions Recorded Confirmed Last Taken tramadol 50 mg PO Q8H PRN #0 tab 03/29/13 09/15/20 Unknown ergocalciferol (vitamin D2) 50,000 unit PO WK #0 cap 11/26/13 09/15/20 06/21/19 cyanocobalamin (vitamin B-12) 1 dose IM MONTHLY #0 06/11/14 09/15/20 08/05/20 diphenoxylate-atropine [Lomotil] 1 tab PO QID PRN #0 tab 08/02/16 09/15/20 Unknown amitriptyline 25 mg tablet 25 mg PO HS tab 11/06/18 09/15/20 Unknown rizatriptan 10 mg tablet 10 mg PO DAILY PRN tab 11/06/18 09/15/20 Unknown fremanezumab-vfrm 225 mg/1.5 mL 225 mg SQ MONTHLY ml 04/15/19 09/15/20 Unknown subcutaneous syringe alprazolam 0.25 mg PO DAILY PRN 06/28/19 09/15/20 Unknown euvlhnzuzs-hntkubslkwocx-qtns 1 tab PO Q6H PRN 06/28/19 09/15/20 Unknown calcium carbonate [Oysco-500] 1,000 mg PO DAILY 06/28/19 09/15/20 Unknown omega-3 fatty acids 1,000 mg 1,000 mg PO DAILY 07/25/19 09/15/20 Unknown capsule duloxetine 30 mg capsule,delayed 30 mg PO BID cap 10/29/19 09/15/20 09/15/20 release gabapentin 100 mg capsule 300 mg PO TID #0 cap 10/29/19 09/15/20 09/15/20 ondansetron HCl 4 mg tablet 4 mg PO Q8H PRN 10/29/19 09/15/20 Unknown tizanidine 4 mg tablet 2 mg PO BID PRN 10/29/19 09/15/20 Unknown acetaminophen 500 mg PO Q4H PRN 08/23/20 09/15/20 Unknown calcitriol 0.25 mcg PO MOWEFR 08/23/20 09/15/20 Unknown hydrocodone-acetaminophen 1 tab PO DAILY PRN 08/23/20 09/15/20 Unknown dicyclomine 20 mg PO TID PRN #90 tab 08/26/20 09/15/20 Unknown sucralfate [Carafate] 1 g PO Q6H 28 Days #1120 ml 08/27/20 09/15/20 Unknown Active Medications Generic Name Dose Route Start Last Admin Trade Name Freq PRN Reason Stop Dose Admin Acetaminophen/Butalbital/Caffeine 1 tab 09/15/20 19:56 09/18/20 16:12 Butalbital/Acetamin/Caffeine Tab PO 10/15/20 19:55 1 tab Q6H PRN Administration Pain Hydrocodone Bitart/Acetaminophen 1 tab 09/15/20 19:56 09/20/20 21:39 Hydrocodone/Acetamophen 5/325mg Tab PO 09/29/20 19:55 1 tab DAILY PRN Administration Severe Pain (Scale Score 7-10) Alprazolam 0.25 mg 09/15/20 19:56 09/20/20 16:47 Alprazolam 0.25 Mg Tablet PO 10/15/20 19:55 0.25 mg DAILY PRN Administration Anxiety Amitriptyline HCl 25 mg 09/15/20 21:00 09/20/20 21:40 Amitriptyline Hcl 25 Mg Tab PO 10/15/20 20:59 25 mg HS ALEKS Administration Calcitriol 0.25 mcg 09/16/20 09:00 09/21/20 08:03 Calcitriol 0.25 Mcg Capsule PO 10/16/20 08:59 0.25 mcg MoWeFr@0900 ALEKS Administration Calcium Carbonate 2,500 mg 09/16/20 07:30 09/21/20 08:04 Calcium Carbonate 1250mg Tab PO 10/16/20 07:29 2,500 mg QDB ALEKS Administration Dicyclomine HCl 20 mg 09/15/20 19:56 09/18/20 09:28 Dicyclomine Hcl 20 Mg Tab PO 10/15/20 19:55 20 mg TID PRN Administration Muscle Spasm Duloxetine HCl 30 mg 09/15/20 21:00 09/21/20 08:02 Duloxetine Hcl 30 Mg Cap PO 10/15/20 20:59 30 mg BID ALEKS Administration Enoxaparin Sodium 30 mg 09/16/20 09:00 09/21/20 08:04 Enoxaparin Inj 30 Mg/0.3 Ml Syr SQ 10/16/20 08:59 30 mg QAM ALEKS Administration Fish Oil 1 gm 09/16/20 09:00 09/21/20 08:02 Franklin-3 (Purified Fish Oil) 1 Gm Cap PO 10/16/20 08:59 1 gm DAILY ALEKS Administration Gabapentin 200 mg 09/19/20 09:00 09/21/20 14:22 Gabapentin 100 Mg Cap PO 10/19/20 08:59 200 mg TID ALEKS Administration Ceftriaxone Sodium 1,000 mg/ 60 mls @ 120 mls/hr 09/19/20 21:00 09/20/20 23:37 Dextrose IV 09/29/20 20:59 Infused DAILY@2100 ALEKS Infusion Protocol Lactated Ringer's 1,000 mls @ 80 mls/hr 09/19/20 17:45 09/21/20 08:03 Lr IV 10/19/20 17:44 80 mls/hr .[id number] AELKS Administration Lactobacillus Acidophilus 1 gm 09/15/20 17:00 09/21/20 12:07 Lactobacillus Acidophilus 1 Gm Pack PO 10/15/20 16:59 Not Given TIDM ALEKS Miscellaneous 1 ea 09/16/20 08:59 09/21/20 08:04 Remove Nicoderm Patch N/A 10/16/20 08:58 1 ea DAILY@0859 ALEKS Administration Morphine Sulfate 2 mg 09/21/20 09:08 09/21/20 09:43 Morphine Sulfate 2 Mg/Ml Carp IV 10/05/20 09:07 2 mg Q4H PRN Administration Pain Nicotine 21 mg 09/15/20 16:15 09/21/20 08:02 Nicotine 21 Mg/24 Hr Tdsy TD 10/15/20 16:14 21 mg QAM ALEKS Administration Nystatin 5 ml 09/15/20 21:00 09/21/20 12:07 Nystatin Susp 500,000 U/5 Ml Udc PO 09/25/20 20:59 Not Given QID ALEKS Ondansetron HCl 4 mg 09/15/20 15:10 09/20/20 12:11 Ondansetron Inj 2 Mg/Ml 2 Ml Vial IV 10/15/20 15:09 4 mg Q6H PRN Administration Nausea Ondansetron HCl 4 mg 09/15/20 20:01 09/16/20 07:41 Ondansetron 4 Mg Od Tab PO 10/15/20 20:00 4 mg Q8H PRN Administration Nausea And Vomiting Rizatriptan Benzoate 10 mg 09/15/20 19:56 09/16/20 17:01 Rizatriptan Benzoate 10 Mg Tab PO 10/15/20 19:55 10 mg DAILY PRN Administration Migraines Sucralfate 1 gm 09/15/20 21:00 09/21/20 14:30 Sucralfate 1 Gm/10 Ml Udc PO 10/15/20 20:59 Not Given Q6H ALEKS Tamsulosin HCl 0.4 mg 09/19/20 21:00 09/20/20 21:40 Tamsulosin Hcl 0.4 Mg Cap PO 10/19/20 20:59 0.4 mg HS ALEKS Administration Tramadol HCl 50 mg 09/15/20 19:56 09/20/20 12:11 Tramadol Hcl 50 Mg Tablet PO 10/15/20 19:55 50 mg Q8H PRN Administration Pain NPO Date Last Intake of Fluids: 09/20/20 Time Last Intake of Fluids: 22:30 Last Intake of Fluids Comment: sips of water with pills this am Date Last Intake of Solids: 09/20/20 Time Last Intake of Solids: 22:30 Past Medical History Medical History Anemia Copper deficiency Malabsorption Migraine headache Zinc poisoning Past Family History Family History Mother Coronary heart disease Past Surgical History Surgical History History of bowel diversion surgery History of cholecystectomy History of gastric bypass Hx of cardiac cath jul 01 2019 Social History Smoking Status: Current every day smoker tobacco type: cigarettes Smoking cigarettes per day: 20-30 Do You Dip or Chew Tobacco: No Hx Alcohol Use: No alcohol intake frequency: holidays/special occasions only Hx Substance Use: No substance use type: does not use Physical Exam Vital Signs Last Vital Signs Temp 36.6 C 09/21/20 14:35 Pulse 72 09/21/20 14:35 Resp 20 09/21/20 14:35 BP 120/67 09/21/20 14:35 Pulse Ox 98 09/21/20 14:35 Testing Laboratory Results 09/19/20 01:26 09/21/20 06:41 PT 11.3 Seconds (9.0-12.0) 09/15/20 14:14 INR 1.1 (0.9-1.1) 09/15/20 14:14 APTT 26.5 Seconds (21.0-31.0) 09/15/20 14:14 Urine Color Yellow 09/19/20 06:15 Urine Appearance Clear (Clear) 09/19/20 06:15 Urine pH 5.5 (4.5-7.5) 09/19/20 06:15 Ur Specific Cotter 1.013 (1.000-1.030) 09/19/20 06:15 Urine Protein Negative (Negative) 09/19/20 06:15 Urine Glucose (UA) Negative (Negative) 09/19/20 06:15 Urine Ketones Negative (Negative) 09/19/20 06:15 Urine Nitrite Negative (Negative) 09/19/20 06:15 Ur Leukocyte Esterase Trace (Negative) H 09/19/20 06:15 Urine WBC (Auto) 10-30 /hpf (0-5) H 09/19/20 06:15 Urine RBC (Auto) 0-4 /hpf (0-4) 09/19/20 06:15 U Hyaline Cast (Auto) 1-5 /lpf (0-5) 09/19/20 06:15 U Epithel Cells (Auto) >30 /lpf (0-5) H 09/19/20 06:15 Urine Bacteria (Auto) Negative (Negative) 09/19/20 06:15 09/19/20 06:15 Urine Culture - Final Urine,Clean Catch Three types of organisms present, all low counts probable skin ravindra. No further identifications or sensitivities to follow. 09/15/20 14:14 Aerobic Blood Culture - Final Blood No growth in Aerobic bottle after 5 days. Anaerobic Blood Culture - Final 09/15/20 13:06 Aerobic Blood Culture - Final Blood No growth in Aerobic bottle after 5 days. Anaerobic Blood Culture - Final 09/16/20 20:30 Escherichia coli Shiga Toxins Test - Final Stool Stool Culture - Final No Salmonella isolated, No Shigella isolated, No Campylobacter jejuni isolated. 09/15/20 20:39 Urine Culture - Final Urine,Clean Catch Escherichia coli Electrocardiogram Date: 09/19/20 Findings: + NSR @ (79) Low voltage QRS Chest X-Ray Date: 09/15/20 Findings: + NAD
[2020-09-21] MEDS ORDERED: ONDANSETRON INJ 2 MG/ML 2 ML VIAL IV PRN (14:59)
[2020-09-21] MEDS ORDERED: ePHEDrine sulfate 50 MG/ML AMP IV PRN (14:59)
[2020-09-21] MEDS ORDERED: fentaNYL citrate 100 MCG/2 ML VIAL IV PRN (14:59)
[2020-09-21] MEDS ORDERED: ATROPINE SULFATE 0.1 MG/ML 10ML SYR IV PRN (14:59)
[2020-09-21] MEDS ORDERED: DIATRIZOATE MEGLUMINE 30% 100ML VIAL INSTIL ONE (16:10)
--- NOTE | 2020-09-21 16:10 | Operative Report ---
PG Post Operative Report Pre & Post Diagnosis Operation Date: 09/21/20 14:10 Pre-Op Diagnosis: Obstructing right ureteral calculus with hydronephrosis Post-Op Diagnosis: Obstructing right ureteral calculus with hydronephrosis I identified the patient and participated in the time-out.: Yes Procedure Operation Date: 09/21/20 14:10 Actual Procedures p Cystoscopy, Right Ureteroscopy, Laser Lithotripsy, Stone Basket Extraction, Ureteral Dilation, Retrograde pyelogram, and Right Stent Placement - Suhail Farias DO Surgeon Suhail Farias, II, DO Quotation Clerk None Estimated Blood Loss 2 Findings Consistent with Post-Op Diagnosis Severely impacted stone in the proximal/mid ureter with stricture. Specimens Stone Fragments Drains 7 Fr x 24 cm Right without tether. Anesthesia Type General Complications none Disposition Disposition: Recovery Room Indications Patient with bothersome stones. Risks and benefits discussed at length. Description of Procedure Patient was consented and brought back to the operating room. Patient was placed under anesthesia in the supine position and moved to the dorsal lithotomy position. Patient was prepped and draped in the regular sterile fashion. A time out was completed. A 30degree Cystoscope was placed into the bladder and the entire bladder was examined. The UO's were identified. The UO was cannulized with a catheter and a retrograde pyelogram was completed. A wire was then placed. The Rigid ureteroscope was taken into the ureter. The stone was identified proximal to a narrowed area in the mid ureter. This was dilated and bypassed. The stone was found to be severely impacted in the lateral wall of the mid/proximal ureter. A laser fiber was selected and the stones were pulverized to dust and small fragments. Larger fragments were grasped and removed and sent for analysis. The lateral wall was found to be significantly irritated with injury from stone impaction. A second wire was then placed and the rigid scope removed. The flexible scope was then taken over the second wire and advanced to the proximal ureter and renal pelvis. The entire pelvis was examined and the stones were further treated with the laser and basketed for removal. The entire area was once again examined. No residual large fragments or areas of concern were noted. The scope was slowly removed with the wire left in place. The area of stricture was found to be open without considerable injury. The area proximal at the site of stone impaction was found to be significant effected by the stone with small stone fragments within the tissue. It was decided to avoid further manipulation as it would likely cause further injury to the area. Contrast was placed through the scope for a pyelogram to assist in stent placement. The entire ureter was examined as the scope was slowly removed. No obstructions or other areas of concern were noted. With the wire in place, a 7 Fr x 24cm Double J stent was placed. It was confirmed with fluoroscopy. With the stent in place, the bladder was emptied. The scope was removed. The patient was cleaned, aroused from anesthesia, and transferred to the pacu in stable condition having tolerated the procedure well with no complications. I was present and participated in all aspects of the procedure. The patient will be monitored in the PACU until transferred. Plan to maintain the stent for 2-3 weeks with KUB to assess for stone fragments. I attest to the content of the Intraoperative Record and any orders documented therein. Any exceptions are noted below.
--- NOTE | 2020-09-21 16:18 | Fluoroscopy Report ---
FL retrograde includes kub CLINICAL HISTORY: RT STENT PLACEMENT COMPARISON STUDY: CT of the abdomen and pelvis September 19, 2020. FLUOROSCOPY TIME: 89.8 seconds. FLUOROSCOPIC IMAGES: 6 FINDINGS: Fluoroscopy was provided during cystoscopy, right retrograde exam and ureteral stent insert ion. Right ureteral stent is appropriately positioned. IMPRESSION: Fluoroscopy provided during cystoscopy, right retrograde exam and ureteral stent inserti on. ACT 112: Negative or not required by law. Electronically signed by: Serjio Reese M.D. 09/21/2020 4:17 PM
--- NOTE | 2020-09-21 16:34 | Anesthesiology Progress Note ---
Date of Service September 21, 2020 Anesthesia Post Procedure Vital Signs Vital Signs: Temp Pulse Pulse Pulse Resp BP BP 09/21/20 16:30 64 12 119/72 09/21/20 16:20 68 14 122/68 09/21/20 16:13 36.3 C L 70 19 122/74 09/21/20 15:42 90 09/21/20 14:35 36.6 C 72 20 120/67 09/21/20 11:00 36.4 C L 93 H 16 148/80 H 09/21/20 08:00 69 09/21/20 07:13 36.6 C 70 16 111/72 09/21/20 04:00 36.5 C 70 18 108/73 09/20/20 23:00 36.7 C 77 18 104/77 09/20/20 19:00 36.8 C 83 18 112/75 Pulse Ox 09/21/20 16:30 96 09/21/20 16:20 100 09/21/20 16:13 100 09/21/20 15:42 09/21/20 14:35 98 09/21/20 11:00 94 09/21/20 08:00 09/21/20 07:13 95 09/21/20 04:00 92 09/20/20 23:00 94 09/20/20 19:00 91 Pain Intensity Head: Pain Intensity: 5 Bilateral Abdomen: Pain Intensity: 9 Transfer of Care Handoff Completed per policy Notes Mental Status: alert / awake / arousable and participated in evaluation Patient Amnestic to Procedure: Yes Nausea / Vomiting: adequately controlled Pain: adequately controlled Airway Patency, RR, SpO2: stable & adequate BP & HR: stable & adequate Hydration State: stable & adequate Anesthetic Complications: no major complications apparent and Pt Satisfied with anesthetic care
[2020-09-21] MEDS: traMADol HCL 50 MG TABLET PO PRN (17:15)
[2020-09-21] MEDS ORDERED: BELLADONNA/OPIUM SUPP 60 MG SUPP PR STA (18:34)
[2020-09-21] MEDS ORDERED: TAMSULOSIN HCL 0.4 MG CAP PO SCH (21:00)
[2020-09-21] MEDS: cefTRIAXone SODIUM 1,000 MG in DEXTROSE 5% 50 ML IV SCH (21:19)
[2020-09-21] MEDS: AMITRIPTYLINE HCL 25 MG TAB PO SCH (21:20)
[2020-09-21] MEDS: PHENAZOPYRIDINE HCL 200 MG TAB PO SCH (21:20)
[2020-09-21] MEDS: TAMSULOSIN HCL 0.4 MG CAP PO SCH (21:21)
[2020-09-21] MEDS: OXYBUTYNIN CHLORIDE 5 MG TAB PO PRN (21:22)
[2020-09-21] MEDS: HYDROCODONE/ACETAMOPHEN 5/325MG TAB PO PRN (21:27)
[2020-09-22] MEDS ORDERED: LACTATED RINGER'S 1,000 ML IV ONE (01:39)
[2020-09-22 02:34] LABS: Basophils # (auto) 0.03 K/uL (0-0.2); Basophils % (auto) 0.3 %; Eosinophils # (auto) 0.01 K/uL (0-0.5); Eosinophils % (auto) 0.1 %; Hematocrit (blood only) 26.5 % (37-47); Hemoglobin 8.7 g/dL (12.0-16.0); Immature Granulocytes # (auto) 0.02 K/uL (0.00-0.02); Immature Granulocytes % (auto) 0.2 %; Lymphocytes # (auto) 0.45 K/uL (1.2-3.4); Lymphocytes % (auto) 4.6 %; Mean Corpuscular Hemoglobin 31.4 pg (25-34); Mean Corpuscular Hgb Conc 32.8 g/dL (32-36); Mean Corpuscular Volume 95.7 fL (80-100); Mean Platelet Volume 12.5 fL (7.4-10.4); Monocytes # (auto) 0.32 K/uL (0.11-0.59); Monocytes % (auto) 3.3 %; Neutrophils # (auto) 8.98 K/uL (1.4-6.5); Neutrophils % (auto) 91.5 %; Platelet Count 135 K/uL (130-400); RDW Coefficient of Variation 14.3 % (11.5-14.5); RDW Standard Deviation 50.2 fL (36.4-46.3); Red Blood Count 2.77 M/uL (4.2-5.4); White Blood Count 9.81 K/uL (4.8-10.8)
[2020-09-22 02:50] LABS: BUN Creatinine Ratio 11.1 (10-20); Calcium 7.7 mg/dl (8.5-10.1); Creatinine Clr Calc Pharmacy 28.2 ml/min; Est GFR (African American) 47.4; Est GFR (Non-African American) 40.9; Magnesium 1.9 mg/dl (1.8-2.4); Potassium 3.6 mmol/L (3.5-5.1)
[2020-09-22 02:52] LABS: Albumin Globulin Ratio 0.7 (0.9-2); Bilirubin,Total 0.3 mg/dl (0.2-1); Globulin 2.7 gm/dl (2.5-4.0); Total Protein 4.7 gm/dl (6.4-8.2)
[2020-09-22] MEDS ORDERED: MAGNESIUM SULFATE / D5W 1 GM/100 ML BAG IV ONE (03:01)
[2020-09-22] MEDS: SUCRALFATE 1 GM/10 ML UDC PO SCH ×4 (03:07→20:32)
[2020-09-22] MEDS: MoRPHine SULFATE 2 MG/ML CARP IV PRN ×2 (04:58→18:54)
--- NOTE | 2020-09-22 08:11 | Anesthesiology Progress Note ---
Date of Service September 22, 2020 Anesthesia Post Procedure Vital Signs Vital Signs: Temp Pulse Pulse Pulse Resp BP Pulse Ox 09/22/20 07:14 123 H 09/22/20 07:00 36.4 C 79 18 98/65 L 95 09/22/20 04:00 36.6 C 81 18 103/68 93 09/21/20 23:11 36.3 C L 107 H 20 94/60 L 95 09/21/20 22:19 120 H 09/21/20 19:30 36.9 C 92 H 18 107/71 94 09/21/20 17:11 36.3 C L 73 18 124/69 98 09/21/20 17:00 86 09/21/20 16:50 36.5 C 82 13 125/72 94 09/21/20 16:40 65 19 120/74 96 09/21/20 16:30 64 12 119/72 96 09/21/20 16:20 68 14 122/68 100 09/21/20 16:13 36.3 C L 70 19 122/74 100 09/21/20 15:42 90 09/21/20 14:35 36.6 C 72 20 120/67 98 09/21/20 11:00 36.4 C L 93 H 16 148/80 H 94 Notes Mental Status: alert / awake / arousable Patient Amnestic to Procedure: Yes Nausea / Vomiting: adequately controlled Pain: adequately controlled Airway Patency, RR, SpO2: stable & adequate BP & HR: stable & adequate Hydration State: stable & adequate Anesthetic Complications: no major complications apparent and Pt Satisfied with anesthetic care
[2020-09-22] MEDS: DULoxetine HCL 30 MG CAP PO SCH ×2 (08:44→20:33)
[2020-09-22] MEDS: OMEGA-3 (PURIFIED FISH OIL) 1 GM CAP PO SCH (08:45)
[2020-09-22] MEDS: ENOXAPARIN INJ 30 MG/0.3 ML SYR SQ SCH (08:45)
[2020-09-22] MEDS: PHENAZOPYRIDINE HCL 200 MG TAB PO SCH ×3 (08:46→21:50)
[2020-09-22] MEDS: NYSTATIN SUSP 500,000 U/5 ML UDC PO SCH ×4 (08:46→20:34)
[2020-09-22] MEDS: GABAPENTIN 100 MG CAP PO SCH ×3 (08:46→20:36)
[2020-09-22] MEDS: CALCIUM CARBONATE 1250MG TAB PO SCH (08:47)
[2020-09-22] MEDS: NICOTINE 21 MG/24 HR TDSY TD SCH (08:49)
[2020-09-22] MEDS: LACTOBACILLUS ACIDOPHILUS 1 GM PACK PO SCH ×3 (08:53→17:26)
--- NOTE | 2020-09-22 09:31 | Hospitalist Progress Note ---
Date of Service September 22, 2020 Assessment & Plan (1) Hypotension: Hypotension secondary to Dehydration , secondary to Diarrhea hx of malabsorption in setting of gastric bypass resolved with IVF and holding tizanidine. (2) Ureteral stone with hydronephrosis: Pt with h/o nephrolithiasis. R ureteral stone 7mm found on CT scan. Worsening ROBINSON and persistent UTI since last month present. Cont ceftriaxone. She is POD#1 s/p cystoscopy, R ureteroscopy with laser lithotripsy, ureteral dilation and R stent placement. Cont supportive care as needed including B&O suppositories, ditropan PRN, pyridium scheduled, flomax scheduled. Pain meds PRN. (3) Acute kidney injury: Secondary to ureteral stone. Improving after treatment yesterday. Urology consulted for treatment of this with stone management. Some worsening of creatinine noted on BMP this morning. Plan as above. (4) Diarrhea: cdiff test negative twice. IBS, cont with Bentyl PRN for now pending further GI workup. No BM in a couple of days per her report. (5) Severe malnutrition: protein calorie malnutrition, consulted RD. She reports that she is scheduled to followup with GI nutrition physician in [place]. (6) History of bowel diversion surgery: history of gastric bypass continue b12 injections, has had issues with diarrhea and malabsorption in the past. (7) Anemia: chronic anemia H/H stable, no s/sx of bleeding (8) Chronic pain syndrome: Chronic abdominal pain, h/o migraines and neuropathy. Follows with pain management. continue increased bentyl, carafate follows GI - to have EGD/Colonoscopy 10/08 (9) Tobacco use: Currently on nicotine supplementation. (10) Depression with anxiety: mood stable, continue amitriptyline, duloxetine (11) Hyperparathyroidism: calcitriol per home regimen. (12) DVT prophylaxis: Lovenox Full Dispo-plan for home when feeling better and renal function has improved to baseline. Lidia Michaels DO [facility] Hospitalist Admission and Anticipated Discharge Date Admission Date: September 15, 2020 Subjective 55 yo F presented with symptomatic hypotension thought secondary to Dehydration with a reported history of Diarrhea in the setting of malabsorption in setting of gastric bypass. Also has +E coli in urine and was previously admitted with urosepsis one month ago. Found to have ureteral stone, set to undergo ureteroscopy with laser lithotripsy today. she is doing better today but still has some persistent abdominal pain she is tolearting PO denies any BM/resolution of diarrhea Review of Systems Review of Systems: All systems reviewed & are unremarkable except as noted in Subjective Physical Exam Physical Exam: CONSTITUTIONAL: WNWD, vitals as above, NAD EYES: normal conjunctivae, no scleral icterus ENT: external ear and nose normal, MMM RESPIRATORY: clear to auscultation bilaterally, no crackles, rales or wheezes, normal respiratory effort CARDIOVASCULAR: regular rate and rhythm, S1 and 2 heard without murmurs, gallops or rubs, no JVD, no peripheral edema GASTROINTESTINAL: soft, some generalized abdominal TTP, R CVA tenderness to palpation MUSCULOSKELETAL: strength 5/5 throughout, head is normocephalic and atraumatic SKIN: warm and dry NEUROLOGIC: CN 2-12 grossly intact, normal cognition, normal speech, no gross focal deficits. PSYCHIATRIC: alert cooperative and oriented to person, place and time. Results & Data Results & Data ([facility]) Vital Signs (Past 12 Hours) Vital Signs Temp Pulse Pulse Resp BP Pulse Ox 09/22/20 07:14 123 H 09/22/20 07:00 36.4 C 79 18 98/65 L 95 09/22/20 04:00 36.6 C 81 18 103/68 93 09/21/20 23:11 36.3 C L 107 H 20 94/60 L 95 09/21/20 22:19 120 H Laboratory Results Short CBC 09/22/20 Range/Units 02:08 WBC 9.81 (4.8-10.8) K/uL Hgb 8.7 L (12.0-16.0) g/dL Hct 26.5 L (37-47) % Plt Count 135 (130-400) K/uL BMP 09/22/20 02:08 Sodium 138 Potassium 3.6 Chloride 110 H Carbon Dioxide 25 BUN 16 Creatinine 1.42 H D Glucose 116 H Calcium 7.7 L Liver Function 09/22/20 Range/Units 02:08 Total Bilirubin 0.3 (0.2-1) mg/dl AST 20 (15-37) U/L ALT 17 (12-78) U/L Alkaline Phosphatase 63 (45-117) U/L Albumin 2.0 L (3.4-5.0) gm/dl Medications Administered Current Inpatient Medications Acetaminophen (Acetaminophen 325 Mg Tab) 650 mg PO Q4H PRN PRN Reason: Pain or Fever Stop: 10/15/20 15:09 Acetaminophen/Butalbital/Caffeine (Butalbital/Acetamin/Caffeine Tab) 1 tab PO Q6H PRN PRN Reason: Pain Stop: 10/15/20 19:55 Last Admin: 09/18/20 16:12 Dose: 1 tab Documented by: Hydrocodone Bitart/Acetaminophen (Hydrocodone/Acetamophen 5/325mg Tab) 1 tab PO DAILY PRN PRN Reason: Severe Pain (Scale Score 7-10) Stop: 09/29/20 19:55 Last Admin: 09/21/20 21:27 Dose: 1 tab Documented by: Alprazolam (Alprazolam 0.25 Mg Tablet) 0.25 mg PO DAILY PRN PRN Reason: Anxiety Stop: 10/15/20 19:55 Last Admin: 09/20/20 16:47 Dose: 0.25 mg Documented by: Amitriptyline HCl (Amitriptyline Hcl 25 Mg Tab) 25 mg PO HS [facility] Stop: 10/15/20 20:59 Last Admin: 09/21/20 21:20 Dose: 25 mg Documented by: Calcitriol (Calcitriol 0.25 Mcg Capsule) 0.25 mcg PO MoWeFr@0900 [facility] Stop: 10/16/20 08:59 Last Admin: 09/21/20 08:03 Dose: 0.25 mcg Documented by: Calcium Carbonate (Calcium Carbonate 1250mg Tab) 2,500 mg PO QDB [facility] Stop: 10/16/20 07:29 Last Admin: 09/22/20 08:47 Dose: 2,500 mg Documented by: Dicyclomine HCl (Dicyclomine Hcl 20 Mg Tab) 20 mg PO TID PRN PRN Reason: Muscle Spasm Stop: 10/15/20 19:55 Last Admin: 09/18/20 09:28 Dose: 20 mg Documented by: Diphenoxylate HCl/Atropine (Diphenoxylate/Atropine 2.5/0.025mg Tab) 1 tab PO QID PRN PRN Reason: Diarrhea Stop: 10/15/20 19:55 Duloxetine HCl (Duloxetine Hcl 30 Mg Cap) 30 mg PO BID [facility] Stop: 10/15/20 20:59 Last Admin: 03/30/21 08:44 Dose: 30 mg Documented by: Enoxaparin Sodium (Enoxaparin Inj 30 Mg/0.3 Ml Syr) 30 mg SQ QAM [facility] Stop: 10/16/20 08:59 Last Admin: 09/22/20 08:45 Dose: 30 mg Documented by: Fish Oil ([place]-3 (Purified Fish Oil) 1 Gm Cap) 1 gm PO DAILY [facility] Stop: 10/16/20 08:59 Last Admin: 09/22/20 08:45 Dose: 1 gm Documented by: Gabapentin (Gabapentin 100 Mg Cap) 200 mg PO TID [facility] Stop: 10/19/20 08:59 Last Admin: 09/22/20 08:46 Dose: 200 mg Documented by: Ceftriaxone Sodium 1,000 mg/ (Dextrose) 60 mls @ 120 mls/hr IV DAILY@2100 [facility]; Protocol Stop: 09/29/20 20:59 Last Infusion: 09/21/20 22:03 Dose: Infused Documented by: Lactobacillus Acidophilus (Lactobacillus Acidophilus 1 Gm Pack) 1 gm PO TIDM [facility] Stop: 10/15/20 16:59 Last Admin: 09/22/20 08:53 Dose: Not Given Documented by: Miscellaneous (Remove Nicoderm Patch) 1 ea N/A DAILY@0859 [facility] Stop: 10/16/20 08:58 Last Admin: 09/22/20 08:45 Dose: 1 ea Documented by: Morphine Sulfate (Morphine Sulfate 2 Mg/Ml Carp) 2 mg IV Q4H PRN PRN Reason: Pain Stop: 10/05/20 09:07 Last Admin: 09/22/20 04:58 Dose: 2 mg Documented by: Nicotine (Nicotine 21 Mg/24 Hr Tdsy) 21 mg TD QAM [facility] Stop: 10/15/20 16:14 Last Admin: 09/22/20 08:49 Dose: 21 mg Documented by: Nystatin (Nystatin Susp 500,000 U/5 Ml Udc) 5 ml PO QID [facility] Stop: 09/25/20 20:59 Last Admin: 09/22/20 08:46 Dose: 5 ml Documented by: Ondansetron HCl (Ondansetron Inj 2 Mg/Ml 2 Ml Vial) 4 mg IV Q6H PRN PRN Reason: Nausea Stop: 10/15/20 15:09 Last Admin: 09/20/20 12:11 Dose: 4 mg Documented by: Ondansetron HCl (Ondansetron 4 Mg Od Tab) 4 mg PO Q8H PRN PRN Reason: Nausea And Vomiting Stop: 10/15/20 20:00 Last Admin: 09/16/20 07:41 Dose: 4 mg Documented by: Oxybutynin Chloride (Oxybutynin Chloride 5 Mg Tab) 5 mg PO BID PRN PRN Reason: bladder spasms Stop: 10/21/20 20:59 Last Admin: 09/21/20 21:22 Dose: 5 mg Documented by: Phenazopyridine HCl (Phenazopyridine Hcl 200 Mg Tab) 200 mg PO TID [facility] Stop: 10/21/20 20:59 Last Admin: 09/22/20 08:46 Dose: 200 mg Documented by: Polyethylene Glycol (Polyethylene (Miralax) 17 Gm Pack) 17 gm PO DAILY PRN PRN Reason: Constipation Stop: 10/15/20 15:09 Rizatriptan Benzoate (Rizatriptan Benzoate 10 Mg Tab) 10 mg PO DAILY PRN PRN Reason: Migraines Stop: 10/15/20 19:55 Last Admin: 09/16/20 17:01 Dose: 10 mg Documented by: Sucralfate (Sucralfate 1 Gm/10 Ml Udc) 1 gm PO Q6H [facility] Stop: 10/15/20 20:59 Last Admin: 09/22/20 08:44 Dose: 1 gm Documented by: Tamsulosin HCl (Tamsulosin Hcl 0.4 Mg Cap) 0.4 mg PO HS [facility] Stop: 10/19/20 20:59 Last Admin: 09/21/20 21:21 Dose: 0.4 mg Documented by: Tramadol HCl (Tramadol Hcl 50 Mg Tablet) 50 mg PO Q8H PRN PRN Reason: Pain Stop: 10/15/20 19:55 Last Admin: 09/21/20 17:15 Dose: 50 mg Documented by: (1) Anemia Anemia type: unspecified type Qualified Code(s): D64.9 - Anemia, unspecified (2) Diarrhea Diarrhea type: unspecified type Qualified Code(s): R19.7 - Diarrhea, unspecified
--- NOTE | 2020-09-22 10:19 | Urology Progress Note ---
Date of Service September 22, 2020 Assessment & Plan (1) Ureteral stone with hydronephrosis: (2) Acute kidney injury: 55 year-old female patient, with multiple comorbidities, admitted with dizziness/hypotension and found to have a 7 mm obstructing stone within the mid right ureter. -POD #1 cystoscopy, right ureteroscopy, laser lithotripsy, ureteral dilation, and right stent placement with Dr. Farias. -Patient remains afebrile. -Labs reviewed - white count normal, creatinine improving. -UC&S 09/15 positive for E.Coli - currently on IV Ceftriaxone. -Continue supportive care and antibiotic therapy while inpatient. -No additional intervention required at this time, urology will sign off. -Plan to maintain the stent for 2-3 weeks with outpatient KUB to assess for stone fragments. -Will arrange outpatient follow-up with urology service for stent removal. -Expected clinical course reviewed with patient, all questions answered. Thank you for allowing us to participate in the acute care of Mrs. Hogue. Please reconsult us with additional questions, concerns or changes in patient status. Admission and Anticipated Discharge Date Admission Date: September 15, 2020 Subjective POD #1 cystoscopy, right ureteroscopy, laser lithotripsy, stone basket extraction, ureteral dilation, retrograde pyelogram, and right stent placement with Dr. Farias. Patient awake, alert, nontoxic on exam. Did have increase in lower abdominal discomfort overnight. Currently has mild right-sided flank discomfort. Does report hematuria as expected. Notes mild dysuria. Denies urinary frequency/urgency. Did have episode of nausea/vomiting this morning. Denies fevers or chills. Chart review: Afebrile Wbc 9.81 Hgb 8.7 Creatinine 1.42 (previously 1.79) Urine culture 09/15 positive for E.Coli. Repeat urine culture 09/19 low counts mixed ravindra. Patient currently on IV Ceftriaxone. Denies additional urologic concerns today. Review of Systems Constitutional: as per Subjective / HPI; no fever and no chills Gastrointestinal: as per Subjective / HPI Genitourinary: as per Subjective / HPI Physical Exam Constitutional: well developed and well nourished; no acute distress and not ill appearing Respiratory: normal respiratory effort and able to speak in complete sentences; no respiratory distress and no audible wheezes Gastrointestinal (Abdomen): Inspection/Auscultation: abdomen normal to inspection; abdomen not distended Percussion/Palpation: abdomen soft; abdomen nontender and no guarding Psychiatric: Orientation: alert, oriented x 3 and cooperative Affect: euthymic affect Results & Data ([facility]) Vital Signs (Past 12 Hours) Vital Signs Temp Pulse Pulse Resp BP Pulse Ox 09/22/20 07:14 123 H 09/22/20 07:00 36.4 C 79 18 98/65 L 95 09/22/20 04:00 36.6 C 81 18 103/68 93 09/21/20 23:11 36.3 C L 107 H 20 94/60 L 95 09/21/20 22:19 120 H PG Care Time/CCT Total # of Minutes Spent Total Time Spent with Patient: Total time spent is greater than 50% in coordination of care (as documented) at patient's floor/unit and/or counseling patient: Coding Level of Care Code 00699 Subseq Hosp Care Lvl 2 Diagnoses Ureteral stone with hydronephrosis N13.2 Acute kidney injury N17.9
[2020-09-22] MEDS: traMADol HCL 50 MG TABLET PO PRN (15:57)
[2020-09-22] MEDS: cefTRIAXone SODIUM 1,000 MG in DEXTROSE 5% 50 ML IV SCH (20:29)
[2020-09-22] MEDS: TAMSULOSIN HCL 0.4 MG CAP PO SCH (20:33)
[2020-09-22] MEDS: AMITRIPTYLINE HCL 25 MG TAB PO SCH (20:34)
[2020-09-22] MEDS: HYDROCODONE/ACETAMOPHEN 5/325MG TAB PO PRN (21:49)
[2020-09-23] MEDS: SUCRALFATE 1 GM/10 ML UDC PO SCH ×4 (05:50→20:43)
[2020-09-23 06:35] LABS: BUN Creatinine Ratio 14.5 (10-20); Calcium 7.6 mg/dl (8.5-10.1); Creatinine Clr Calc Pharmacy 34.5 ml/min; Est GFR (African American) 60.5; Est GFR (Non-African American) 52.2; Magnesium 1.6 mg/dl (1.8-2.4); Potassium 3.9 mmol/L (3.5-5.1)
[2020-09-23] MEDS: LACTOBACILLUS ACIDOPHILUS 1 GM PACK PO SCH ×3 (08:06→17:27)
[2020-09-23] MEDS: NICOTINE 21 MG/24 HR TDSY TD SCH (08:06)
[2020-09-23] MEDS: CALCITRIOL 0.25 MCG CAPSULE PO SCH (08:07)
[2020-09-23] MEDS: DULoxetine HCL 30 MG CAP PO SCH ×2 (08:07→20:43)
[2020-09-23] MEDS: GABAPENTIN 100 MG CAP PO SCH ×3 (08:07→20:43)
[2020-09-23] MEDS: NYSTATIN SUSP 500,000 U/5 ML UDC PO SCH ×4 (08:07→20:43)
[2020-09-23] MEDS: CALCIUM CARBONATE 1250MG TAB PO SCH (08:07)
[2020-09-23] MEDS: ENOXAPARIN INJ 30 MG/0.3 ML SYR SQ SCH (08:07)
[2020-09-23] MEDS: PHENAZOPYRIDINE HCL 200 MG TAB PO SCH ×3 (08:07→20:43)
[2020-09-23] MEDS: OMEGA-3 (PURIFIED FISH OIL) 1 GM CAP PO SCH (08:08)
--- NOTE | 2020-09-23 09:03 | Hospitalist Progress Note ---
Date of Service September 23, 2020 Assessment & Plan (1) Hypotension: Hypotension secondary to Dehydration , secondary to Diarrhea hx of malabsorption in setting of gastric bypass resolved with IVF and holding tizanidine. (2) Ureteral stone with hydronephrosis: Pt with h/o nephrolithiasis. R ureteral stone 7mm found on CT scan. Worsening ROBINSON and persistent UTI since last month present. Cont ceftriaxone. She is POD#2 s/p cystoscopy, R ureteroscopy with laser lithotripsy, ureteral dilation and R stent placement. Cont supportive care as needed including B&O suppositories, ditropan PRN, pyridium scheduled, flomax scheduled. Pain meds PRN. Cont. to have hematuria Check H&H (3) Acute kidney injury: Secondary to ureteral stone. Urology consulted for treatment of this with stone management. Cr now 1.16 , ROBINSON resolved (4) Diarrhea: cdiff test negative twice. IBS, cont with Bentyl PRN for now pending further GI workup. No BM in a couple of days per her report. (5) Severe malnutrition: protein calorie malnutrition, consulted RD. She reports that she is scheduled to followup with GI nutrition physician in [place]. (6) History of bowel diversion surgery: history of gastric bypass continue b12 injections, has had issues with diarrhea and malabsorption in the past. (7) Anemia: chronic anemia H/H stable, no s/sx of bleeding (8) Chronic pain syndrome: Chronic abdominal pain, h/o migraines and neuropathy. Follows with pain management. continue increased bentyl, carafate follows GI - to have EGD/Colonoscopy 10/08 (9) Tobacco use: Currently on nicotine supplementation. (10) Depression with anxiety: mood stable, continue amitriptyline, duloxetine (11) Hyperparathyroidism: calcitriol per home regimen. (12) DVT prophylaxis: Lovenox Full Dispo-plan for home when feeling better and renal function has improved to baseline. Admission and Anticipated Discharge Date Admission Date: September 15, 2020 Subjective 55 yo F presented with symptomatic hypotension thought secondary to Dehydration with a reported history of Diarrhea in the setting of malabsorption in setting of gastric bypass. Also has +E coli in urine and was previously admitted with urosepsis one month ago. Found to have ureteral stone, now s/p ureteroscopy with laser lithotripsy she is doing better today but still has some persistent abdominal pain she is tolerating PO denies any BM/resolution of diarrhea She does have hematuria Will check H&H Review of Systems Review of Systems: All systems reviewed & are unremarkable except as noted in HPI & below Constitutional: no fever and no chills Respiratory: no cough and no dyspnea Cardiovascular: no chest pain and no palpitations Gastrointestinal: + abdominal pain (some R lower quadrant pain); no vomiting Genitourinary: + hematuria Physical Exam Physical Exam: CONSTITUTIONAL: WNWD, vitals as above, NAD EYES: normal conjunctivae, no scleral icterus ENT: external ear and nose normal, MMM RESPIRATORY: clear to auscultation bilaterally, no crackles, rales or wheezes, normal respiratory effort CARDIOVASCULAR: regular rate and rhythm, S1 and 2 heard without murmurs, gallops or rubs, no JVD, no peripheral edema GASTROINTESTINAL: soft, some generalized abdominal TTP, R lower abd. quadrant, R CVA tenderness to palpation MUSCULOSKELETAL: strength 5/5 throughout, head is normocephalic and atraumatic SKIN: warm and dry NEUROLOGIC: CN 2-12 grossly intact, normal cognition, normal speech, no gross focal deficits, moves extremities PSYCHIATRIC: alert cooperative and oriented to person, place and time. Results & Data Results & Data ([facility]) Vital Signs (Past 12 Hours) Vital Signs Temp Pulse Resp BP BP Pulse Ox 09/23/20 07:37 37.4 C 85 16 108/73 89 L 09/22/20 23:52 36.8 C 93 H 18 95/64 L 90 Laboratory Results 09/23/20 09/18/20 Range/Units 05:37 07:25 Sodium 140 (136-145) mmol/L Potassium 3.9 (3.5-5.1) mmol/L Chloride 111 H (98-107) mmol/L Carbon Dioxide 26 (21-32) mmol/L Anion Gap 3.0 (3-11) BUN 17 (7-18) mg/dl Creatinine 1.16 (0.6-1.2) mg/dl Est Cr Clr Drug Dosing 34.5 ml/min Est GFR ( Amer) 60.5 Est GFR (Non-Af Amer) 52.2 BUN/Creatinine Ratio 14.5 (10-20) Glucose 81 (70-99) mg/dl Calcium 7.6 L (8.5-10.1) mg/dl Phosphorus 4.0 (2.5-4.9) mg/dl Magnesium 1.6 L (1.8-2.4) mg/dl Stool Comments SEE NOTE Giardia Antigen SEE NOTE Medications Administered Current Inpatient Medications Acetaminophen (Acetaminophen 325 Mg Tab) 650 mg PO Q4H PRN PRN Reason: Pain or Fever Stop: 10/15/20 15:09 Acetaminophen/Butalbital/Caffeine (Butalbital/Acetamin/Caffeine Tab) 1 tab PO Q6H PRN PRN Reason: Pain Stop: 10/15/20 19:55 Last Admin: 09/18/20 16:12 Dose: 1 tab Documented by: Hydrocodone Bitart/Acetaminophen (Hydrocodone/Acetamophen 5/325mg Tab) 1 tab PO DAILY PRN PRN Reason: Severe Pain (Scale Score 7-10) Stop: 09/29/20 19:55 Last Admin: 09/22/20 21:49 Dose: 1 tab Documented by: Alprazolam (Alprazolam 0.25 Mg Tablet) 0.25 mg PO DAILY PRN PRN Reason: Anxiety Stop: 10/15/20 19:55 Last Admin: 09/20/20 16:47 Dose: 0.25 mg Documented by: Amitriptyline HCl (Amitriptyline Hcl 25 Mg Tab) 25 mg PO [facility] Stop: 10/15/20 20:59 Last Admin: 09/22/20 20:34 Dose: 25 mg Documented by: Calcitriol (Calcitriol 0.25 Mcg Capsule) 0.25 mcg PO MoWeFr@0900 [facility] Stop: 10/16/20 08:59 Last Admin: 09/23/20 08:07 Dose: 0.25 mcg Documented by: Calcium Carbonate (Calcium Carbonate 1250mg Tab) 2,500 mg PO QDB [facility] Stop: 10/16/20 07:29 Last Admin: 09/23/20 08:07 Dose: 2,500 mg Documented by: Dicyclomine HCl (Dicyclomine Hcl 20 Mg Tab) 20 mg PO TID PRN PRN Reason: Muscle Spasm Stop: 10/15/20 19:55 Last Admin: 09/18/20 09:28 Dose: 20 mg Documented by: Diphenoxylate HCl/Atropine (Diphenoxylate/Atropine 2.5/0.025mg Tab) 1 tab PO QID PRN PRN Reason: Diarrhea Stop: 10/15/20 19:55 Duloxetine HCl (Duloxetine Hcl 30 Mg Cap) 30 mg PO BID [facility] Stop: 10/15/20 20:59 Last Admin: 09/23/20 08:07 Dose: 30 mg Documented by: Enoxaparin Sodium (Enoxaparin Inj 30 Mg/0.3 Ml Syr) 30 mg SQ QAM [facility] Stop: 10/16/20 08:59 Last Admin: 09/23/20 08:07 Dose: 30 mg Documented by: Fish Oil ([place]-3 (Purified Fish Oil) 1 Gm Cap) 1 gm PO DAILY [facility] Stop: 10/16/20 08:59 Last Admin: 09/23/20 08:08 Dose: 1 gm Documented by: Gabapentin (Gabapentin 100 Mg Cap) 200 mg PO TID [facility] Stop: 10/19/20 08:59 Last Admin: 09/23/20 08:07 Dose: 200 mg Documented by: Ceftriaxone Sodium 1,000 mg/ (Dextrose) 60 mls @ 120 mls/hr IV DAILY@2100 [facility]; Protocol Stop: 09/29/20 20:59 Last Infusion: 09/22/20 21:11 Dose: Infused Documented by: Magnesium Sulfate/Dextrose (Magnesium Sulfate / D5w) 1 gm in 100 mls @ 50 mls/hr IV ONE ONE Stop: 09/23/20 10:59 Lactobacillus Acidophilus (Lactobacillus Acidophilus 1 Gm Pack) 1 gm PO TIDM [facility] Stop: 10/15/20 16:59 Last Admin: 09/23/20 08:06 Dose: Not Given Documented by: Miscellaneous (Remove Nicoderm Patch) 1 ea N/A DAILY@0859 [facility] Stop: 10/16/20 08:58 Last Admin: 09/23/20 08:06 Dose: 1 ea Documented by: Morphine Sulfate (Morphine Sulfate 2 Mg/Ml Carp) 2 mg IV Q4H PRN PRN Reason: Pain Stop: 10/05/20 09:07 Last Admin: 09/22/20 18:54 Dose: 2 mg Documented by: Nicotine (Nicotine 21 Mg/24 Hr Tdsy) 21 mg TD QAM [facility] Stop: 10/15/20 16:14 Last Admin: 09/23/20 08:06 Dose: 21 mg Documented by: Nystatin (Nystatin Susp 500,000 U/5 Ml Udc) 5 ml PO QID [facility] Stop: 09/25/20 20:59 Last Admin: 09/23/20 08:07 Dose: 5 ml Documented by: Ondansetron HCl (Ondansetron Inj 2 Mg/Ml 2 Ml Vial) 4 mg IV Q6H PRN PRN Reason: Nausea Stop: 10/15/20 15:09 Last Admin: 09/20/20 12:11 Dose: 4 mg Documented by: Ondansetron HCl (Ondansetron 4 Mg Od Tab) 4 mg PO Q8H PRN PRN Reason: Nausea And Vomiting Stop: 10/15/20 20:00 Last Admin: 09/16/20 07:41 Dose: 4 mg Documented by: Oxybutynin Chloride (Oxybutynin Chloride 5 Mg Tab) 5 mg PO BID PRN PRN Reason: bladder spasms Stop: 10/21/20 20:59 Last Admin: 09/21/20 21:22 Dose: 5 mg Documented by: Phenazopyridine HCl (Phenazopyridine Hcl 200 Mg Tab) 200 mg PO TID [facility] Stop: 10/21/20 20:59 Last Admin: 09/23/20 08:07 Dose: 200 mg Documented by: Polyethylene Glycol (Polyethylene (Miralax) 17 Gm Pack) 17 gm PO DAILY PRN PRN Reason: Constipation Stop: 10/15/20 15:09 Rizatriptan Benzoate (Rizatriptan Benzoate 10 Mg Tab) 10 mg PO DAILY PRN PRN Reason: Migraines Stop: 10/15/20 19:55 Last Admin: 09/16/20 17:01 Dose: 10 mg Documented by: Sucralfate (Sucralfate 1 Gm/10 Ml Udc) 1 gm PO Q6H [facility] Stop: 10/15/20 20:59 Last Admin: 09/23/20 08:07 Dose: 1 gm Documented by: Tamsulosin HCl (Tamsulosin Hcl 0.4 Mg Cap) 0.4 mg PO HS [facility] Stop: 10/19/20 20:59 Last Admin: 09/22/20 20:33 Dose: 0.4 mg Documented by: Tramadol HCl (Tramadol Hcl 50 Mg Tablet) 50 mg PO Q8H PRN PRN Reason: Pain Stop: 10/15/20 19:55 Last Admin: 09/22/20 15:57 Dose: 50 mg Documented by: (1) Anemia Anemia type: unspecified type Qualified Code(s): D64.9 - Anemia, unspecified (2) Diarrhea Diarrhea type: unspecified type Qualified Code(s): R19.7 - Diarrhea, unspecified
[2020-09-23] MEDS ORDERED: MAGNESIUM SULFATE / D5W 1 GM/100 ML BAG IV ONE (09:15)
[2020-09-23] MEDS: traMADol HCL 50 MG TABLET PO PRN (12:07)
[2020-09-23] MEDS: BUTALBITAL/ACETAMIN/CAFFEINE TAB PO PRN (13:27)
[2020-09-23] MEDS: LIDOCAINE 5% 1 PATCH TD SCH (16:13)
[2020-09-23] MEDS: MoRPHine SULFATE 2 MG/ML CARP IV PRN (16:48)
[2020-09-23 16:49] LABS: Hematocrit (blood only) 26.2 % (37-47); Hemoglobin 8.8 g/dL (12.0-16.0)
[2020-09-23] MEDS: AMITRIPTYLINE HCL 25 MG TAB PO SCH (20:43)
[2020-09-23] MEDS: TAMSULOSIN HCL 0.4 MG CAP PO SCH (20:43)
[2020-09-23] MEDS: cefTRIAXone SODIUM 1,000 MG in DEXTROSE 5% 50 ML IV SCH (21:25)
[2020-09-23] MEDS: HYDROCODONE/ACETAMOPHEN 5/325MG TAB PO PRN (22:01)
[2020-09-24] MEDS: SUCRALFATE 1 GM/10 ML UDC PO SCH ×2 (04:58→10:03)
--- NOTE | 2020-09-24 08:10 | Hospitalist Progress Note ---
Date of Service September 24, 2020 Assessment & Plan (1) Hypotension: Hypotension secondary to Dehydration , secondary to Diarrhea hx of malabsorption in setting of gastric bypass resolved with IVF and holding tizanidine. (2) Ureteral stone with hydronephrosis: Pt with h/o nephrolithiasis. R ureteral stone 7mm found on CT scan. Worsening ROBINSON and persistent UTI since last month present. Cont ceftriaxone. She s/p s/p cystoscopy, R ureteroscopy with laser lithotripsy, ureteral dilation and R stent placement. Cont supportive care as needed including B&O suppositories, ditropan PRN, pyridium scheduled, flomax scheduled. Pain meds PRN. Cont. to have hematuria, H&H stable 09/23 H&H today 8.3 Recommend to recheck H&H at family doctor appointment (3) Acute kidney injury: Secondary to ureteral stone. Urology consulted for treatment of this with stone management. Cr now 1.16 , ROBINSON resolved Hypokalemia, hypomagnesemia -Replace and monitor -Recommend to recheck levels at next family doctor appointment (4) Diarrhea: cdiff test negative twice. IBS, cont with Bentyl PRN for now pending further GI workup. No BM in a couple of days per her report. (5) Severe malnutrition: protein calorie malnutrition, consulted RD. She reports that she is scheduled to followup with GI nutrition physician in [place]. (6) History of bowel diversion surgery: history of gastric bypass continue b12 injections, has had issues with diarrhea and malabsorption in the past. (7) Anemia: chronic anemia H/H stable, now w/ some hematuria (expected after procedure) (8) Chronic pain syndrome: Chronic abdominal pain, h/o migraines and neuropathy. Follows with pain management. continue increased bentyl, carafate follows GI - to have EGD/Colonoscopy 10/08 (9) Tobacco use: Currently on nicotine supplementation. (10) Depression with anxiety: mood stable, continue amitriptyline, duloxetine (11) Hyperparathyroidism: calcitriol per home regimen. (12) DVT prophylaxis: Lovenox stop d/t hematuria, scds Full Dispo-plan for home Admission and Anticipated Discharge Date Admission Date: September 15, 2020 Subjective 55 yo F presented with symptomatic hypotension thought secondary to Dehydration with a reported history of Diarrhea in the setting of malabsorption in setting of gastric bypass. Also has +E coli in urine and was previously admitted with urosepsis one month ago. Found to have ureteral stone, now s/p ureteroscopy with laser lithotripsy she is doing well today but still has some persistent abdominal pain( but improved) she is tolerating PO denies any BM/resolution of diarrhea She does have hematuria H&H yesterday stable, will await H&H today Review of Systems Review of Systems: All systems reviewed & are unremarkable except as noted in HPI & below Constitutional: no fever and no chills Respiratory: no cough and no dyspnea Cardiovascular: no chest pain and no palpitations Gastrointestinal: + abdominal pain (some R lower quadrant pain (improved)); no vomiting Genitourinary: + hematuria Physical Exam Physical Exam: CONSTITUTIONAL: WNWD, vitals as above, NAD EYES: normal conjunctivae, no scleral icterus ENT: external ear and nose normal, MMM RESPIRATORY: clear to auscultation bilaterally, no crackles, rales or wheezes, normal respiratory effort CARDIOVASCULAR: regular rate and rhythm, S1 and 2 heard without murmurs, gallops or rubs, no JVD, no peripheral edema GASTROINTESTINAL: soft, some generalized abdominal TTP, R lower abd. quadrant, R CVA tenderness to palpation (somewhat improved) MUSCULOSKELETAL: strength 5/5 throughout, head is normocephalic and atraumatic SKIN: warm and dry NEUROLOGIC: CN 2-12 grossly intact, normal cognition, normal speech, no gross focal deficits, moves extremities PSYCHIATRIC: alert cooperative and oriented to person, place and time. Results & Data Results & Data ([facility]) Vital Signs (Past 12 Hours) Vital Signs Temp Pulse Resp BP BP Pulse Ox 09/24/20 07:36 36.3 C L 89 16 106/60 95 09/24/20 00:04 92 09/23/20 23:33 37.3 C 18 93/60 L Laboratory Results 09/24/20 09/24/20 09/23/20 Range/Units 07:47 07:47 16:20 Hgb 8.3 L 8.8 L (12.0-16.0) g/dL Hct 25.2 L 26.2 L (37-47) % Sodium 139 (136-145) mmol/L Potassium 3.2 L D (3.5-5.1) mmol/L Chloride 108 H (98-107) mmol/L Carbon Dioxide 26 (21-32) mmol/L Anion Gap 5.0 (3-11) BUN 14 (7-18) mg/dl Creatinine 0.81 D (0.6-1.2) mg/dl Est Cr Clr Drug Dosing 49.5 ml/min Est GFR ( Amer) 93.4 Est GFR (Non-Af Amer) 80.6 BUN/Creatinine Ratio 16.7 (10-20) Glucose 81 (70-99) mg/dl Calcium 7.8 L (8.5-10.1) mg/dl Magnesium 1.4 L (1.8-2.4) mg/dl Medications Administered Current Inpatient Medications Acetaminophen (Acetaminophen 325 Mg Tab) 650 mg PO Q4H PRN PRN Reason: Pain or Fever Stop: 10/15/20 15:09 Acetaminophen/Butalbital/Caffeine (Butalbital/Acetamin/Caffeine Tab) 1 tab PO Q6H PRN PRN Reason: Pain Stop: 10/15/20 19:55 Last Admin: 09/23/20 13:27 Dose: 1 tab Documented by: Hydrocodone Bitart/Acetaminophen (Hydrocodone/Acetamophen 5/325mg Tab) 1 tab PO DAILY PRN PRN Reason: Severe Pain (Scale Score 7-10) Stop: 09/29/20 19:55 Last Admin: 09/23/20 22:01 Dose: 1 tab Documented by: Alprazolam (Alprazolam 0.25 Mg Tablet) 0.25 mg PO DAILY PRN PRN Reason: Anxiety Stop: 10/15/20 19:55 Last Admin: 09/20/20 16:47 Dose: 0.25 mg Documented by: Amitriptyline HCl (Amitriptyline Hcl 25 Mg Tab) 25 mg PO HS [facility] Stop: 10/15/20 20:59 Last Admin: 09/23/20 20:43 Dose: 25 mg Documented by: Calcitriol (Calcitriol 0.25 Mcg Capsule) 0.25 mcg PO MoWeFr@0900 [facility] Stop: 10/16/20 08:59 Last Admin: 09/23/20 08:07 Dose: 0.25 mcg Documented by: Calcium Carbonate (Calcium Carbonate 1250mg Tab) 2,500 mg PO QDB [facility] Stop: 10/16/20 07:29 Last Admin: 09/23/20 08:07 Dose: 2,500 mg Documented by: Dicyclomine HCl (Dicyclomine Hcl 20 Mg Tab) 20 mg PO TID PRN PRN Reason: Muscle Spasm Stop: 10/15/20 19:55 Last Admin: 09/18/20 09:28 Dose: 20 mg Documented by: Diphenoxylate HCl/Atropine (Diphenoxylate/Atropine 2.5/0.025mg Tab) 1 tab PO QID PRN PRN Reason: Diarrhea Stop: 10/15/20 19:55 Duloxetine HCl (Duloxetine Hcl 30 Mg Cap) 30 mg PO BID [facility] Stop: 10/15/20 20:59 Last Admin: 09/23/20 20:43 Dose: 30 mg Documented by: Fish Oil (Hubertus-3 (Purified Fish Oil) 1 Gm Cap) 1 gm PO DAILY [facility] Stop: 10/16/20 08:59 Last Admin: 09/23/20 08:08 Dose: 1 gm Documented by: Gabapentin (Gabapentin 100 Mg Cap) 200 mg PO TID [facility] Stop: 10/19/20 08:59 Last Admin: 09/23/20 20:43 Dose: 200 mg Documented by: Ceftriaxone Sodium 1,000 mg/ (Dextrose) 60 mls @ 120 mls/hr IV DAILY@2100 [facility]; Protocol Stop: 09/29/20 20:59 Last Infusion: 09/23/20 21:58 Dose: Infused Documented by: Magnesium Sulfate/Dextrose (Magnesium Sulfate / D5w) 1 gm in 100 mls @ 50 mls/hr IV ONE ONE Stop: 09/24/20 11:59 Lactobacillus Acidophilus (Lactobacillus Acidophilus 1 Gm Pack) 1 gm PO TIDM [facility] Stop: 10/15/20 16:59 Last Admin: 09/23/20 17:27 Dose: 1 gm Documented by: Lidocaine (Lidocaine 5% 1 Patch) 1 patch TD QAM [facility] Stop: 10/23/20 15:14 Last Admin: 09/23/20 16:13 Dose: 1 patch Documented by: Magnesium Oxide (Magnesium Oxide 400 Mg Tab) 400 mg PO BID [facility] Stop: 10/24/20 09:29 Miscellaneous (Remove Nicoderm Patch) 1 ea N/A DAILY@0859 [facility] Stop: 10/16/20 08:58 Last Admin: 09/23/20 08:06 Dose: 1 ea Documented by: Miscellaneous (Remove Lidoderm Patch) 1 ea N/A DAILY@2100 [facility] Stop: 10/23/20 22:59 Last Admin: 09/23/20 22:02 Dose: 1 ea Documented by: Morphine Sulfate (Morphine Sulfate 2 Mg/Ml Carp) 2 mg IV Q4H PRN PRN Reason: Pain Stop: 10/05/20 09:07 Last Admin: 09/23/20 16:48 Dose: 2 mg Documented by: Nicotine (Nicotine 21 Mg/24 Hr Tdsy) 21 mg TD QAM [facility] Stop: 10/15/20 16:14 Last Admin: 09/23/20 08:06 Dose: 21 mg Documented by: Nystatin (Nystatin Susp 500,000 U/5 Ml Udc) 5 ml PO QID [facility] Stop: 09/25/20 20:59 Last Admin: 09/23/20 20:43 Dose: 5 ml Documented by: Ondansetron HCl (Ondansetron Inj 2 Mg/Ml 2 Ml Vial) 4 mg IV Q6H PRN PRN Reason: Nausea Stop: 10/15/20 15:09 Last Admin: 09/20/20 12:11 Dose: 4 mg Documented by: Ondansetron HCl (Ondansetron 4 Mg Od Tab) 4 mg PO Q8H PRN PRN Reason: Nausea And Vomiting Stop: 10/15/20 20:00 Last Admin: 09/16/20 07:41 Dose: 4 mg Documented by: Oxybutynin Chloride (Oxybutynin Chloride 5 Mg Tab) 5 mg PO BID PRN PRN Reason: bladder spasms Stop: 10/21/20 20:59 Last Admin: 09/21/20 21:22 Dose: 5 mg Documented by: Phenazopyridine HCl (Phenazopyridine Hcl 200 Mg Tab) 200 mg PO TID [facility] Stop: 10/21/20 20:59 Last Admin: 09/23/20 20:43 Dose: 200 mg Documented by: Polyethylene Glycol (Polyethylene (Miralax) 17 Gm Pack) 17 gm PO DAILY PRN PRN Reason: Constipation Stop: 10/15/20 15:09 Rizatriptan Benzoate (Rizatriptan Benzoate 10 Mg Tab) 10 mg PO DAILY PRN PRN Reason: Migraines Stop: 10/15/20 19:55 Last Admin: 09/16/20 17:01 Dose: 10 mg Documented by: Sucralfate (Sucralfate 1 Gm/10 Ml Udc) 1 gm PO Q6H [facility] Stop: 10/15/20 20:59 Last Admin: 09/24/20 04:58 Dose: 1 gm Documented by: Tamsulosin HCl (Tamsulosin Hcl 0.4 Mg Cap) 0.4 mg PO HS [facility] Stop: 10/19/20 20:59 Last Admin: 09/23/20 20:43 Dose: 0.4 mg Documented by: Tramadol HCl (Tramadol Hcl 50 Mg Tablet) 50 mg PO Q8H PRN PRN Reason: Pain Stop: 10/15/20 19:55 Last Admin: 09/23/20 12:07 Dose: 50 mg Documented by: (1) Anemia Anemia type: unspecified type Qualified Code(s): D64.9 - Anemia, unspecified (2) Diarrhea Diarrhea type: unspecified type Qualified Code(s): R19.7 - Diarrhea, unspecified
[2020-09-24 08:51] LABS: BUN Creatinine Ratio 16.7 (10-20); Calcium 7.8 mg/dl (8.5-10.1); Creatinine Clr Calc Pharmacy 49.5 ml/min; Est GFR (African American) 93.4; Est GFR (Non-African American) 80.6; Magnesium 1.4 mg/dl (1.8-2.4)
[2020-09-24 09:13] LABS: Potassium 3.2 mmol/L (3.5-5.1)
[2020-09-24] MEDS ORDERED: POTASSIUM CHLORIDE CRTAB 20 MEQ TABCR PO STA (09:22)
[2020-09-24] MEDS ORDERED: MAGNESIUM OXIDE 400 MG TAB PO SCH (09:30)
[2020-09-24 09:33] LABS: Hematocrit (blood only) 25.2 % (37-47); Hemoglobin 8.3 g/dL (12.0-16.0)
[2020-09-24] MEDS: LACTOBACILLUS ACIDOPHILUS 1 GM PACK PO SCH ×2 (09:56→14:57)
[2020-09-24] MEDS: BUTALBITAL/ACETAMIN/CAFFEINE TAB PO PRN (09:56)
[2020-09-24] MEDS: PHENAZOPYRIDINE HCL 200 MG TAB PO SCH (09:57)
[2020-09-24] MEDS: OXYBUTYNIN CHLORIDE 5 MG TAB PO PRN (09:57)
[2020-09-24] MEDS: DULoxetine HCL 30 MG CAP PO SCH (09:57)
[2020-09-24] MEDS: GABAPENTIN 100 MG CAP PO SCH (09:58)
[2020-09-24] MEDS: CALCIUM CARBONATE 1250MG TAB PO SCH (09:59)
[2020-09-24] MEDS: OMEGA-3 (PURIFIED FISH OIL) 1 GM CAP PO SCH (09:59)
[2020-09-24] MEDS: traMADol HCL 50 MG TABLET PO PRN (09:59)
[2020-09-24] MEDS ORDERED: MAGNESIUM SULFATE / D5W 1 GM/100 ML BAG IV ONE ×2 (10:00→12:00)
[2020-09-24] MEDS: NICOTINE 21 MG/24 HR TDSY TD SCH (10:02)
[2020-09-24] MEDS: NYSTATIN SUSP 500,000 U/5 ML UDC PO SCH ×2 (10:02→10:06)
[2020-09-24] MEDS: LIDOCAINE 5% 1 PATCH TD SCH (10:03)
--- NOTE | 2020-09-24 10:03 | XRay Report ---
KUB HISTORY: Ureteral stent positioning COMPARISON: Abdomen and pelvis CT 09/19/2020. FINDINGS: The bowel gas pattern is unremarkable. There are no dilated loops of small bowel to suggest an obstruction. A right ureteral stent is noted. This is likely in good position. There are multipl e punctate bilateral renal calculi. Prior cholecystectomy. Possible small mid right ureteral stone. N o pneumoperitoneum or pneumatosis. IMPRESSION: 1. A right ureteral stent is likely in good position. 2. Bilateral nephrolithiasis is again noted. 3. Possible stone within the mid right ureter. ACT 112: Negative or not required by law. Electronically signed by: Armando Burton M.D. 09/24/2020 10:02 AM
--- NOTE | 2020-09-24 11:08 | Discharge Summary ---
Date of Service September 24, 2020 Admission HPI Per Admitting Provider This is a 55-year-old female who has significant past medical history of gastric bypass, mild protein calorie malnutrition, siddhartha deficiency, b12 def, scoliosis, chronic pain syndrome, idiopathic peripheral neuropathy, depression, hyperparathyroidism, PFO Who presents to ED at referral of pain management clinic secondary to dizziness and hypotension during appointment. She presented to pain management today for Botox injections and was complaining of dizziness. Her systolic blood pressure was noted to be in her 60s. IV was established and she received IV fluid with minimal improvement in systolic blood pressure to 70s. She continued to complain of dizziness and was referred to ED. Of significance patient was recently hospitalized 08/24 to 08/28/2020 secondary to acute uncomplicated E. coli UTI, altered mental status and ROBINSON. She was treated with IV Rocephin and transition to oral Keflex. ROBINSON improved with supportive hydration. It was recommended she avoid NSAIDs. She also complained of abdominal pain and was seen and evaluated by GI. She is scheduled for outpatient colonoscopy and EGD on 10/08. Bentyl was increased to 20 mg 3 times daily. She typically does experience chronic diarrhea. She was seen and evaluated for hospital follow-up and complained of dysuria. She had urinalysis obtained and was started on Macrobid. Urinalysis did not grow anything significant. Approximately 2 days ago she developed acute diarrhea. She woke up the past 2 days with her bed entirely soiled which she had never done before. This is much different than her usual diarrhea and it was much more foul-smel ling. She denied any abdominal cramping with it. She did have episode of nausea 2 days ago but no vomiting. She complains of feeling cold but denies any documented fever sweats, chest pain, shortness of breath, cough, URI symptoms, abdominal pain, change in urinary habits. She does admit to lightheadedness and dizziness with standing, but has not been out of bed since ED so is unsure if this is improved. In ED patient was hypotensive. She received 1 L of IV fluid. She was found to have hypokalemia, hyperchloremia, elevated BUN 23, corrected calcium 8.0, mag 1.1, albumin 2.4. Her blood pressure did improve after IV hydration. She was unable to provide stool sample and given significant hypotension she was recommended for admission. Admission Exam Per Admitting Provider Constitutional: Thin, fraile, F, vitals as above, NAD, sitting up in bed, pleasant, conversing easily Head: Normocephalic, Atraumatic Eyes: PERRL, conjunctivae normal, anicteric sclerae ENMT: external ear and nose normal, oropharynx normal Neck: trachea midline, no thyromegaly normal visual inspection Respiratory: normal respiratory effort, lungs clear to auscultation, no wheeze, rales, rhonchi. Normal insp/exp effort, no accessory muscle use Cardiovascular: RRR, no murmur, no edema Vessels: no JVD or carotid bruit Chest: normal inspection of chest Abdomen: normal bowel sounds, soft, nontender, no hepatosplenomegaly Musculoskeletal: no cyanosis or clubbing, extremities motor strength 5/5 Skin: no rashes, warm and dry normal turgor Neurologic: PERRL, EOMI, accommodation nl, no face palsy, no dysarthria CN's II-XI intact bilaterally and moves all extremities Psychiatric: A+Ox3, euthymic affect Lymphatic: no cervical or axillary lymphadenopathy : deferred Principal Diagnosis Ureteral stone with hydronephrosis, status post ureteral stent placement ROBINSON Dizziness, hypotension Discharge Exam CONSTITUTIONAL: WNWD, vitals as above, NAD EYES: normal conjunctivae, no scleral icterus ENT: external ear and nose normal, MMM RESPIRATORY: clear to auscultation bilaterally, no crackles, rales or wheezes, normal respiratory effort CARDIOVASCULAR: regular rate and rhythm, S1 and 2 heard without murmurs, gallops or rubs, no JVD, no peripheral edema GASTROINTESTINAL: soft, some generalized abdominal TTP, R lower abd. quadrant, R CVA tenderness to palpation (somewhat improved) MUSCULOSKELETAL: strength 5/5 throughout, head is normocephalic and atraumatic SKIN: warm and dry NEUROLOGIC: CN 2-12 grossly intact, normal cognition, normal speech, no gross focal deficits, moves extremities PSYCHIATRIC: alert cooperative and oriented to person, place and time. Discharge Data Allergies Allergy/AdvReac Type Severity Reaction Status Date / Time Penicillins Allergy Unknown ? REACTION Verified 09/15/20 12:51 Sulfa (Sulfonamide Allergy Unknown Unknown Verified 09/15/20 12:51 Antibiotics) reaction aspirin AdvReac Mild No an Verified 09/15/20 12:51 allergy- cannot take post-bypass surgery ragweed pollen AdvReac Mild swelling Verified 09/15/20 12:51 Consultations 09/15/20 15:08 ED Decision to Admit Stat 09/16/20 14:33 Consult Gastroenterology Routine 09/19/20 17:29 Consult Urology Routine Procedures Performed Operation Date: 09/20/20 14:00 <No data on this case meets the specified criteria> Operation Date: 09/21/20 14:10 Actual Procedures p Cystoscopy, Right Ureteroscopy, Laser Lithotripsy, Stone Basket Extraction, Ureteral Dilation, Right Stent Placement - Suhail Farias DO Ordered Studies 09/19/20 10:24 CT abd pelvis wo con Urgent 1. A 7 mm obstructing stone within the mid right ureter resulting in mild right hydroureteronephrosis. 2. Bilateral nephrolithiasis. 3. Questionable mild thickening of the rectum with mild perirectal fat stranding. This could represent a mild proctitis. 4. Mildly dilated fluid-filled loops of mid to distal small bowel within the pelvis. This includes a distended and fluid-filled jejunojejunostomy site measuring up to 5.9 cm in diameter. The distal ileal loops are slightly decompressed. No clear transition point identified. Therefore, this could represent a partial small bowel obstruction versus an ileus. 5. Additional findings as described above. 09/21/20 FL retrograde includes kub Routine Hospital Course (1) Hypotension: Hypotension secondary to Dehydration , secondary to Diarrhea hx of malabsorption in setting of gastric bypass resolved with IVF and holding tizanidine. (2) Ureteral stone with hydronephrosis: Pt with h/o nephrolithiasis. R ureteral stone 7mm found on CT scan. Worsening ROBINSON and persistent UTI since last month present. Cont ceftriaxone. She s/p s/p cystoscopy, R ureteroscopy with laser lithotripsy, ureteral dilation and R stent placement. Cont supportive care as needed including B&O suppositories, ditropan PRN, pyridium scheduled, flomax scheduled. Pain meds PRN. Cont. to have hematuria, H&H stable 09/23 H&H today 8.3 Recommend to recheck H&H at family doctor appointment (3) Acute kidney injury: Secondary to ureteral stone. Urology consulted for treatment of this with stone management. Cr now 1.16 , ROBINSON resolved Hypokalemia, hypomagnesemia -Replace and monitor -Recommend to recheck levels at next family doctor appointment (4) Diarrhea: cdiff test negative twice. IBS, cont with Bentyl PRN for now pending further GI workup. No BM in a couple of days per her report. (5) Severe malnutrition: protein calorie malnutrition, consulted RD. She reports that she is scheduled to followup with GI nutrition physician in [place]. (6) History of bowel diversion surgery: history of gastric bypass continue b12 injections, has had issues with diarrhea and malabsorption in the past. (7) Anemia: chronic anemia H/H stable, now w/ some hematuria (expected after procedure) (8) Chronic pain syndrome: Chronic abdominal pain, h/o migraines and neuropathy. Follows with pain management. continue increased bentyl, carafate follows GI - to have EGD/Colonoscopy 10/08 (9) Tobacco use: Currently on nicotine supplementation. (10) Depression with anxiety: mood stable, continue amitriptyline, duloxetine (11) Hyperparathyroidism: calcitriol per home regimen. (12) DVT prophylaxis: Lovenox stop d/t hematuria, scds Full Dispo-plan for home Total Time Total Time Spent Total Time Spent (In Minutes): 40 Total Time Includes: Examination of the Patient, Discharge Planning, Medication Reconciliation and Communication With Other Providers Discharge Plan Discharge Items Patient Disposition: Home - Self-Care Reason For Visit: ABDOMINAL PAIN Discharge Diagnosis: Ureteral stone with hydronephrosis, status post ureteral stent placement ROBINSON Dizziness, hypotension Activity: Per Instructions section Non-emergency contact: Primary Care Provider and Specialist Call non-emergency contact if: you have any medication questions and your symptoms worsen Follow-up/Referrals: Evelyn Andrews MD [Primary Care Provider] - 09/28/20 11:20 am (Date & Time 09/28/2020 11:20 AM Provider Glenis Granger PA-C Department Internal Medicine [facility] ) Diet: Regular Addtl Attending Provider Instructions: Follow-up with your primary care provider, the appointment was scheduled for you for September 28. You will also need to follow-up with urology, in 2 to 3 weeks with outpatient KUB. You will be contacted about the appointment. For pain/discomfort due to kidney stone and now stent, take your home pain medications, in addition, Flomax, Pyridium and Ditropan were prescribed for you. Discuss further with your primary care doctor and urologist. At your family doctor appointment, recommend to check your blood work, H&H, and your magnesium level as its been low. Recommend to take magnesium supplement, prescription was sent to your pharmacy. Pending Studies at Discharge: No Stand-Alone Forms: My [facility], Smoking Cessation Medications and DC Order Prescriptions: New phenazopyridine [Pyridium] 200 mg Tablet 200 mg PO TID Qty: 10 RF: 0 tamsulosin 0.4 mg Capsule 0.4 mg PO HS Qty: 10 RF: 0 lidocaine 5 % Adhesive Patch,Medicated 1 patch transdermal QAM Qty: 14 RF: 0 oxybutynin chloride 5 mg Tablet 5 mg PO BID PRN (Reason: bladder spasms) Qty: 20 RF: 0 Floranex 100 million cell Granules In Packet 1 g PO TIDM Qty: 30 RF: 0 magnesium oxide 400 mg (241.3 mg magnesium) Tablet 400 mg PO BID Qty: 10 RF: 0 Continued amitriptyline 25 mg tablet 25 mg PO HS RF: 0 rizatriptan 10 mg tablet 10 mg PO DAILY PRN (Reason: Migraines) RF: 0 fremanezumab-vfrm 225 mg/1.5 mL syringe 225 mg SQ MONTHLY RF: 0 omega-3 fatty acids 1,000 mg capsule 1,000 mg PO DAILY RF: 0 ondansetron HCl [Zofran] 4 mg tablet 4 mg PO Q8H PRN (Reason: nausea and vomiting) RF: 0 tramadol 50 mg Tablet 50 mg PO Q8H PRN (Reason: Pain) Qty: 0 RF: 0 ergocalciferol (vitamin D2) 50,000 unit Capsule 50,000 unit PO WK Qty: 0 RF: 0 cyanocobalamin (vitamin B-12) 1,000 mcg/mL Solution 1 dose IM MONTHLY Qty: 0 RF: 0 diphenoxylate-atropine [Lomotil] 2.5-0.025 mg Tablet 1 tab PO QID PRN (Reason: Diarrhea) Qty: 0 RF: 0 gabapentin [Neurontin] 100 mg capsule 300 mg PO TID Qty: 0 RF: 0 hydrocodone-acetaminophen 5-325 mg tablet 1 tab PO DAILY PRN (Reason: Severe Pain (Scale Score 7-10)) RF: 0 calcitriol 0.25 mcg Capsule 0.25 mcg PO MOWEFR RF: 0 acetaminophen 500 mg tablet 500 mg PO Q4H PRN (Reason: Pain) RF: 0 dicyclomine 20 mg Tablet 20 mg PO TID PRN (Reason: Muscle Spasm) Qty: 90 RF: 0 sucralfate [Carafate] 100 mg/mL suspension 1 g PO Q6H 28 Days Qty: 1120 RF: 3 euqbvxpmxz-wadsbefeembwn-osua 50-325-40 mg tablet 1 tab PO Q6H PRN (Reason: Pain) RF: 0 alprazolam 0.25 mg tablet 0.25 mg PO DAILY PRN (Reason: Anxiety) RF: 0 calcium carbonate [Oysco-500] 500 mg calcium (1,250 mg) tablet 1,000 mg PO DAILY RF: 0 duloxetine 30 mg capsule,delayed release(DR/EC) 30 mg PO BID RF: 0 Discontinued tizanidine 4 mg tablet 2 mg PO BID PRN (Reason: Migraine Headache) RF: 0 Discharge Orders: Discharge Order (Routine); Ordered 09/24/20 Ordered By: Yifan Redman Admission Data Admit Date/Time: 09/15/20 15:11 Attending Provider: Yifan Redman Admit Provider: Suzanne Barahona Primary Care Provider: Evelyn Andrews Other Providers: Suzanne Barahona ; Benson Oates ; Mauro Goldstein ; Lidia Michaels
--- NOTE | 2020-09-24 11:38 | Urology Progress Note ---
Date of Service September 24, 2020 Assessment & Plan (1) Ureteral stone with hydronephrosis: 55 year-old female patient, with multiple comorbidities, admitted with dizziness/hypotension and found to have a 7 mm obstructing stone within the mid right ureter. -POD #3 cystoscopy, right ureteroscopy, laser lithotripsy, ureteral dilation, and right stent placement with Dr. Farias. -Patient remains afebrile. -Labs reviewed - Hemoglobin 8.3 today (previous 8.8) and creatinine normal -KUB today showed right ureteral stent in good position and a possible stone within the mid right ureter -No further intervention at this time -Recommend home with flomax, prn pyridium, prn oxybutynin, and prn analgesia on discharge -Plan to maintain the stent for 2-3 weeks with outpatient KUB to assess for stone fragments -Will arrange outpatient follow-up with urology service for stent removal. -Expected clinical course reviewed with patient, all questions answered. Thank you for allowing us to participate in the acute care of Mrs. Hogeu. Please reconsult us with additional questions, concerns or changes in patient status. Admission and Anticipated Discharge Date Admission Date: September 15, 2020 Subjective POD #3 cystoscopy, right ureteroscopy, laser lithotripsy, stone basket extraction, ureteral dilation, retrograde pyelogram, and right stent placement with Dr. Farias. Patient awake, alert, nontoxic on exam. Currently has mild right-sided flank discomfort. Does report hematuria as expected. Notes mild dysuria. Denies fevers or chills. No nausea or vomiting. Chart review: Afebrile, Hgb 8.3, Creatinine 0.81 Review of Systems Constitutional: as per Subjective / HPI Gastrointestinal: as per Subjective / HPI Genitourinary: as per Subjective / HPI Physical Exam Constitutional: well developed and well nourished; no acute distress and not ill appearing Respiratory: normal respiratory effort and able to speak in complete sentences Gastrointestinal (Abdomen): Inspection/Auscultation: abdomen normal to inspection; abdomen not distended Skin: No visible rashes or lesions Neurologic: moves all extremities and awake Psychiatric: Orientation: alert, oriented x 3 and cooperative Affect: euthymic affect Results & Data ([facility]) Vital Signs (Past 12 Hours) Vital Signs Temp Pulse Resp BP Pulse Ox 09/24/20 07:36 36.3 C L 89 16 106/60 95 09/24/20 00:04 92 PG Care Time/CCT Total # of Minutes Spent Total Time Spent with Patient: Total time spent is greater than 50% in coordination of care (as documented) at patient's floor/unit and/or counseling patient: Coding Level of Care Code 84224 Subseq Hosp Care Lvl 2 Diagnoses Ureteral stone with hydronephrosis N13.2
[2020-09-25 11:46] LABS: Component 2 DNR; Source URETER STONE
== END 2020-09-24 15:20 | disposition home or self-care (01) | DRG 659 ==
LOC: ED 10:59 → SUATTDRO 15:11 → 2N 15:11 → 3N 09-23 21:07

== ENCOUNTER 2020-10-01 10:52 | Inpatient (IN) ==
[2020-10-01] MEDS ORDERED: SODIUM CHLORIDE 0.9% 500 ML IV ONE (13:44)
[2020-10-01] MEDS ORDERED: SODIUM CHLORIDE 0.9% 1000ML 500 ML IV ONE (14:05)
[2020-10-01] MEDS ORDERED: ONDANSETRON INJ 2 MG/ML 2 ML VIAL IV STA (14:05)
[2020-10-01] MEDS ORDERED: ACETAMINOPHEN 65 ML IV ONE (14:05)
[2020-10-01] MEDS ORDERED: MoRPHine SULFATE 2 MG/ML CARP IV STA (14:08)
--- NOTE | 2020-10-01 14:13 | Emergency Department Note ---
Impression & Plan Hypotension, Anemia, Hypomagnesemia, Hypokalemia, Acute dehydration ED Provider Note NAME: SHANTI JESSICA AGE: 55 SEX: F : 1965 ARRIVES VIA: Walk-In INFORMANT: [Patient] ED PROVIDER(S): [Jensen Mack MD] CHIEF COMPLAINT: Hypotension HISTORY OF PRESENT ILLNESS: Patient is a 55-year-old female who was discharged from our hospital just over a week ago. She was in for around 10 days for a right ureteral stone with hydro-. She had lithotripsy and stenting. Her stent is still in place. Patient did grow E. coli also on her initial urinary culture. The E. coli was pansensitive. She did receive IV antibiotic therapy. The patient states that since leaving the hospital, things have slowly worsened. In the last few days, she has had a lot of right flank pain. She has had nausea and vomiting. She has been dizzy and lightheaded and has felt thirsty. Her urine has been bloody although, there has been no burning to urinate. No fever. No cough or chest pain or shortness of breath. Patient went to her doctors office today, she was hypotensive in the office and referred to the ED for further care. The patient states right flank pain has become severe, maybe an 8 or so. The pain is on the entire right side and radiates to the flank. It is constant. REVIEW OF SYSTEMS: See HPI for pertinent positives and negatives. A total of ten systems were reviewed and were otherwise negative. PMHx/PSHx: See Below SOCIAL HISTORY: See Below. PHYSICAL EXAM: GENERAL: Patient is in no acute distress. HEENT: No acute trauma, normocephalic atraumatic, mucous membranes dry, no nasal congestion, no scleral icterus. NECK: No stridor, no adenopathy, no meningismus, trachea is midline. LUNGS: Clear to auscultation bilaterally, no wheeze, no rhonchi, breath sounds equal. HEART: Without murmurs gallops or rubs, regular rate and rhythm. ABDOMEN: Soft, nontender, bowel sounds positive, no hernias, no peritonitis. EXTREMITIES: No cyanosis or edema, full range of motion of all the joints without pain or difficulty, no signs for acute trauma. NEUROLOGIC: Oriented x 3, no acute motor or sensory deficits, no focal weakness. SKIN: No rash, no jaundice, no diaphoresis. Pale. Rectal: Brown stool, heme-negative. DIFFERENTIAL DIAGNOSIS: Infection, dehydration, metabolic abnormality, sepsis, bacteremia, UTI, hypo/hyperglycemia, hydronephrosis, intra-abdominal bleeding, electrolyte disturbance, anemia, hypoxia, cardiac sources, intracerebral event, toxicologic issues, stroke, TIA, as well as other pathologies. EMERGENCY DEPARTMENT COURSE/PROCEDURES: ECG: Indication was hypotension. The ECG shows a sinus bradycardia with a rate of 54. There is some nonspecific ST changes diffusely. The QTc is 441. There are some inverted T waves in the anterior leads. There is no ST destin vation, no PVCs. Compared to an ECG from 19 September 2020, the inverted anterior T waves are new. The rate has decreased. Continuous Cardiac Monitoring: An order was placed for continuous cardiac monitoring. The monitor shows a rate of 65 with normal sinus rhythm. Critical Care Note: I have personally spent 44 minutes of critical care time in the direct management of this patient. This includes bedside care, interpretation of diagnostic studies, and testing, discussion with consultants, patient, and family members, and other required patient management activities. This 44 minutes is in excess of all separately billable procedures. MEDICAL DECISION MAKING: There is no leukocytosis. The patient is anemic with a hemoglobin of 7.6. This is a drop for her, she was discharged from the hospital a short time ago with a hemoglobin of just over 8. I did perform a rectal exam, stool was brown and heme negative. There is an elevation to the platelet count at 448. No worrisome coagulopathy. Renal panel testing does not show renal failure however, her potassium and magnesium are both low. No worrisome liver enzyme elevation. Albumin was quite low. Urinalysis result is pending. Covid and influenza testing was negative. Chest film shows scoliosis, no pneumonia or CHF. ECG shows a sinus bradycardia, no acute ischemia. Cardiac enzyme testing x1 is not consistent with acute cardiac injury. The patient presents hypotensive. She was given IV saline, her blood pressure did rebound. She was given IV magnesium, IV and oral potassium. She was given IV Zofran. She was given IV morphine for pain, she received IV Tylenol for pain. The patient's vital signs have improved. She feels improved. I do think she requires a hospital stay. She has some chemistry abnormalities that require correction. She needs further hydration. She may in fact require a blood transfusion as her hemoglobin seems to continue to drop. I believe all of her findings have contributed to her presentation today. I did speak with the patient and case management. The on-call hospitalist was consulted. Past Med/Surg History Medical History Anemia Copper deficiency Malabsorption Migraine headache Zinc poisoning Surgical History History of bowel diversion surgery History of cholecystectomy History of gastric bypass Hx of cardiac cath jul 01 2019 Family History Mother Coronary heart disease Social History Smoking Status: Never smoker packs per day: 1; Cigarettes Per Day: 20-30; Second Hand Exposure: Yes; Hx Alcohol Use: No Hx Substance Use: No Preferred Language: Setswana Communication Ability: Effective Visual Impairment: No Limitations Hearing Ability: Normal Field Mechanical Meter Tester Required: No Beliefs That Will Affect Care: None marital status: Current Living Situation: Spouse Current Living Situation Comment: in middle of divorce current occupational status: disabled 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 REACTION Verified 10/01/20 14:38 Sulfa (Sulfonamide Allergy Unknown Unknown Verified 10/01/20 14:38 Antibiotics) reaction aspirin AdvReac Mild No an Verified 10/01/20 14:38 allergy- cannot take post-bypass surgery ragweed pollen AdvReac Mild swelling Verified 10/01/20 14:38 Home Meds Home Medications Medication Instructions Recorded Confirmed tramadol 50 mg PO Q8H PRN #0 tab 03/29/13 10/01/20 ergocalciferol (vitamin D2) 50,000 unit PO WK #0 cap 11/26/13 10/01/20 cyanocobalamin (vitamin B-12) 1 dose IM MONTHLY #0 06/11/14 10/01/20 diphenoxylate-atropine [Lomotil] 1 tab PO QID PRN #0 tab 08/02/16 10/01/20 amitriptyline 25 mg tablet 25 mg PO HS tab 11/06/18 10/01/20 rizatriptan 10 mg tablet 10 mg PO DAILY PRN tab 11/06/18 10/01/20 fremanezumab-vfrm 225 mg/1.5 mL 225 mg SQ MONTHLY ml 04/15/19 10/01/20 subcutaneous syringe alprazolam 0.25 mg PO DAILY PRN 06/28/19 10/01/20 pxtispvtls-fwhjgvucyzxee-uajy 1 tab PO Q6H PRN 06/28/19 10/01/20 calcium carbonate [Oysco-500] 1,000 mg PO DAILY 06/28/19 10/01/20 omega-3 fatty acids 1,000 mg 1,000 mg PO QAM 07/25/19 10/01/20 capsule duloxetine 30 mg capsule,delayed 30 mg PO BID cap 10/29/19 10/01/20 release gabapentin 100 mg capsule 300 mg PO TID #0 cap 10/29/19 10/01/20 ondansetron HCl 4 mg tablet 4 mg PO Q8H PRN 10/29/19 10/01/20 acetaminophen 500 mg PO Q4H PRN 08/23/20 10/01/20 calcitriol 0.25 mcg PO MOWEFR 08/23/20 10/01/20 hydrocodone-acetaminophen 1 tab PO DAILY PRN 08/23/20 10/01/20 Previous Rx's Medication Instructions Recorded dicyclomine 20 mg PO TID PRN #90 tab 08/26/20 sucralfate [Carafate] 1 g PO Q6H 28 Days #1120 ml 08/27/20 Lactobacillus acidoph-L.bulgar 1 g PO TIDM #30 ea 09/24/20 [Floranex] lidocaine 1 patch TRANSDERMAL QAM #14 ea 09/24/20 magnesium oxide 400 mg PO BID #10 tab 09/24/20 oxybutynin chloride 5 mg PO BID PRN #20 tab 09/24/20 phenazopyridine [Pyridium] 200 mg PO TID #10 tab 09/24/20 tamsulosin 0.4 mg PO HS #10 cap 09/24/20 Results & Data (ED) Vital Signs Vital Signs - 24 hr 10/01/20 11:14 10/01/20 13:41 10/01/20 14:01 Temperature 36.8 C Temperature Source Oral Pulse Rate 80 60 Pulse Rate [Apical] 66 Pulse Rate from SpO2 Sensor 61 Respiratory Rate 16 12 20 Blood Pressure 81/53 L 112/61 Blood Pressure [Left Arm] 108/61 Blood Pressure Mean 62 78 Blood Pressure Mean [Left Arm] 76 Pulse Oximetry 93 96 98 Oxygen Delivery Method Room Air Room Air Room Air Sepsis Recent Fever Within 48 Hours No Sepsis New/Unexplained Change in Mental Status N/A Sepsis Action Taken by Nursing No Action Required 10/01/20 14:31 10/01/20 15:00 10/01/20 15:30 Temperature Temperature Source Pulse Rate 54 L 55 L 67 Pulse Rate [Apical] Pulse Rate from SpO2 Sensor 55 L Respiratory Rate 11 L 15 17 Blood Pressure 102/66 124/60 106/66 Blood Pressure [Left Arm] Blood Pressure Mean 78 81 79 Blood Pressure Mean [Left Arm] Pulse Oximetry 98 Oxygen Delivery Method Room Air Sepsis Recent Fever Within 48 Hours Sepsis New/Unexplained Change in Mental Status Sepsis Action Taken by Nursing 10/01/20 16:00 10/01/20 16:30 10/01/20 17:00 Temperature Temperature Source Pulse Rate 63 57 L 62 Pulse Rate [Apical] Pulse Rate from SpO2 Sensor 63 58 L 64 Respiratory Rate 16 15 16 Blood Pressure 109/65 116/63 109/63 Blood Pressure [Left Arm] Blood Pressure Mean 79 80 78 Blood Pressure Mean [Left Arm] Pulse Oximetry 97 97 96 Oxygen Delivery Method Sepsis Recent Fever Within 48 Hours Sepsis New/Unexplained Change in Mental Status Sepsis Action Taken by Shelter Medications Current Medication List: was personally reviewed by me Laboratory Data Attestation: I reviewed the patient's lab results. Result diagrams: 10/01/20 14:58 10/01/20 16:56 Lab Results 10/01/20 10/01/20 10/01/20 Range/Units 14:58 15:35 15:35 WBC 8.12 (4.8-10.8) K/uL RBC 2.48 L (4.2-5.4) M/uL Hgb 7.6 L (12.0-16.0) g/dL Hct 23.7 L (37-47) % MCV 95.6 (80-100) fL MCH 30.6 (25-34) pg MCHC 32.1 (32-36) g/dL RDW Std Deviation 49.0 H (36.4-46.3) fL RDW Coeff of Mike 14.6 H (11.5-14.5) % Plt Count 448 H (130-400) K/uL MPV 11.2 H (7.4-10.4) fL Immature Gran % (Auto) 0.2 % Neut % (Auto) 71.9 % Lymph % (Auto) 22.5 % Elmore % (Auto) 3.7 % Eos % (Auto) 1.1 % Baso % (Auto) 0.6 % Neut # (Auto) 5.83 (1.4-6.5) K/uL Lymph # (Auto) 1.83 (1.2-3.4) K/uL Elmore # (Auto) 0.30 (0.11-0.59) K/uL Eos # (Auto) 0.09 (0-0.5) K/uL Baso # (Auto) 0.05 (0-0.2) K/uL Immature Gran # (Auto) 0.02 (0.00-0.02) K/uL Polychromasia 1+ Echinocytes 2+ PT (9.0-12.0) Seconds INR (0.9-1.1) APTT (21.0-31.0) Seconds PTT Ratio Sodium (136-145) mmol/L Potassium (3.5-5.1) mmol/L Chloride (98-107) mmol/L Carbon Dioxide (21-32) mmol/L Anion Gap (3-11) BUN (7-18) mg/dl Creatinine (0.6-1.2) mg/dl Est Cr Clr Drug Dosing ml/min Est GFR ( Amer) Est GFR (Non-Af Amer) BUN/Creatinine Ratio (10-20) Glucose (70-99) mg/dl Lactate (0.4-2.0) mmol/L Calcium (8.5-10.1) mg/dl Magnesium (1.8-2.4) mg/dl Total Bilirubin (0.2-1) mg/dl AST (15-37) U/L ALT (12-78) U/L Alkaline Phosphatase (45-117) U/L Troponin I (0-0.045) ng/ml Total Protein (6.4-8.2) gm/dl Albumin (3.4-5.0) gm/dl Globulin (2.5-4.0) gm/dl Albumin/Globulin Ratio (0.9-2) COVID-19 Eval Order CovFluRsv at [facility] SARS-CoV-2 (PCR) NEGATIVE (Negative) Influenza Type A (PCR) Negative (Neg) Influenza Type B (PCR) Negative (Neg) RSV (RT-PCR) Negative (Neg) Blood Type Antibody Screen Crossmatch 10/01/20 10/01/20 10/01/20 Range/Units 16:56 16:56 16:56 WBC (4.8-10.8) K/uL RBC (4.2-5.4) M/uL Hgb (12.0-16.0) g/dL Hct (37-47) % MCV (80-100) fL MCH (25-34) pg MCHC (32-36) g/dL RDW Std Deviation (36.4-46.3) fL RDW Coeff of Mike (11.5-14.5) % Plt Count (130-400) K/uL MPV (7.4-10.4) fL Immature Gran % (Auto) % Neut % (Auto) % Lymph % (Auto) % Elmore % (Auto) % Eos % (Auto) % Baso % (Auto) % Neut # (Auto) (1.4-6.5) K/uL Lymph # (Auto) (1.2-3.4) K/uL Elmore # (Auto) (0.11-0.59) K/uL Eos # (Auto) (0-0.5) K/uL Baso # (Auto) (0-0.2) K/uL Immature Gran # (Auto) (0.00-0.02) K/uL Polychromasia Echinocytes PT 12.1 H (9.0-12.0) Seconds INR 1.2 H (0.9-1.1) APTT 28.3 (21.0-31.0) Seconds PTT Ratio 1.1 Sodium 145 (136-145) mmol/L Potassium 2.6 L (3.5-5.1) mmol/L Chloride 112 H (98-107) mmol/L Carbon Dioxide 25 (21-32) mmol/L Anion Gap 8.0 (3-11) BUN 17 (7-18) mg/dl Creatinine 0.92 (0.6-1.2) mg/dl Est Cr Clr Drug Dosing 46.0 ml/min Est GFR ( Amer) 80.1 Est GFR (Non-Af Amer) 69.1 BUN/Creatinine Ratio 18.5 (10-20) Glucose 87 (70-99) mg/dl Lactate 1.1 (0.4-2.0) mmol/L Calcium 6.8 L (8.5-10.1) mg/dl Magnesium 1.3 L (1.8-2.4) mg/dl Total Bilirubin 0.4 (0.2-1) mg/dl AST 7 L (15-37) U/L ALT 10 L (12-78) U/L Alkaline Phosphatase 71 (45-117) U/L Troponin I < 0.015 (0-0.045) ng/ml Total Protein 4.7 L (6.4-8.2) gm/dl Albumin 1.6 L (3.4-5.0) gm/dl Globulin 3.1 (2.5-4.0) gm/dl Albumin/Globulin Ratio 0.5 L (0.9-2) COVID-19 Eval Order SARS-CoV-2 (PCR) (Negative) Influenza Type A (PCR) (Neg) Influenza Type B (PCR) (Neg) RSV (RT-PCR) (Neg) Blood Type Antibody Screen Crossmatch 10/01/20 10/01/20 Range/Units 16:56 16:56 WBC (4.8-10.8) K/uL RBC (4.2-5.4) M/uL Hgb (12.0-16.0) g/dL Hct (37-47) % MCV (80-100) fL MCH (25-34) pg MCHC (32-36) g/dL RDW Std Deviation (36.4-46.3) fL RDW Coeff of Mike (11.5-14.5) % Plt Count (130-400) K/uL MPV (7.4-10.4) fL Immature Gran % (Auto) % Neut % (Auto) % Lymph % (Auto) % Elmore % (Auto) % Eos % (Auto) % Baso % (Auto) % Neut # (Auto) (1.4-6.5) K/uL Lymph # (Auto) (1.2-3.4) K/uL Elmore # (Auto) (0.11-0.59) K/uL Eos # (Auto) (0-0.5) K/uL Baso # (Auto) (0-0.2) K/uL Immature Gran # (Auto) (0.00-0.02) K/uL Polychromasia Echinocytes PT (9.0-12.0) Seconds INR (0.9-1.1) APTT (21.0-31.0) Seconds PTT Ratio Sodium (136-145) mmol/L Potassium (3.5-5.1) mmol/L Chloride (98-107) mmol/L Carbon Dioxide (21-32) mmol/L Anion Gap (3-11) BUN (7-18) mg/dl Creatinine (0.6-1.2) mg/dl Est Cr Clr Drug Dosing ml/min Est GFR ( Amer) Est GFR (Non-Af Amer) BUN/Creatinine Ratio (10-20) Glucose (70-99) mg/dl Lactate (0.4-2.0) mmol/L Calcium (8.5-10.1) mg/dl Magnesium Cancelled (1.8-2.4) mg/dl Total Bilirubin (0.2-1) mg/dl AST (15-37) U/L ALT (12-78) U/L Alkaline Phosphatase (45-117) U/L Troponin I (0-0.045) ng/ml Total Protein (6.4-8.2) gm/dl Albumin (3.4-5.0) gm/dl Globulin (2.5-4.0) gm/dl Albumin/Globulin Ratio (0.9-2) COVID-19 Eval Order SARS-CoV-2 (PCR) (Negative) Influenza Type A (PCR) (Neg) Influenza Type B (PCR) (Neg) RSV (RT-PCR) (Neg) Blood Type A Positive Antibody Screen NEGATIVE Crossmatch See Detail Administered Medications Potassium Chloride (K Harvey / Wtr) 10 meq in 100 mls @ 100 mls/hr IV ONE ONE Stop: 10/01/20 18:45 Last Admin: 10/01/20 18:01 Dose: 100 mls/hr Documented by: [id number] Discontinued Medications Sodium Chloride (Nss) 500 mls @ 999 mls/hr IV .Q31M ONE Stop: 10/01/20 14:14 Last Infusion: 10/01/20 16:00 Dose: 0 mls/hr Documented by: [id number] Admin: 10/01/20 15:08 Dose: 999 mls/hr Documented by: [id number] Sodium Chloride (Nss 1000ml) 500 mls @ 999 mls/hr IV .Q31M ONE Stop: 10/01/20 14:35 Last Infusion: 10/01/20 15:32 Dose: 0 mls/hr Documented by: [id number] Admin: 10/01/20 15:02 Dose: 999 mls/hr Documented by: [id number] Acetaminophen (Ofirmev) 65 mls @ 200 mls/hr IV NOW ONE; Protocol Stop: 10/01/20 14:24 Last Infusion: 10/01/20 15:22 Dose: 0 mls/hr Documented by: [id number] Admin: 10/01/20 15:02 Dose: 200 mls/hr Documented by: [id number] Morphine Sulfate (Morphine Sulfate 2 Mg/Ml Carp) 2 mg IV NOW STA Stop: 10/01/20 14:09 Last Admin: 10/01/20 15:06 Dose: 2 mg Documented by: [id number] Ondansetron HCl (Ondansetron Inj 2 Mg/Ml 2 Ml Vial) 4 mg IV NOW STA Stop: 10/01/20 14:06 Last Admin: 10/01/20 15:06 Dose: 4 mg Documented by: [id number] Potassium Chloride (Potassium Chloride Crtab 20 Meq Tabcr) 20 meq PO NOW STA Stop: 10/01/20 17:47 Last Admin: 10/01/20 18:01 Dose: 20 meq Documented by: [id number] Imaging Data Radiologist's Impression: Chest X-Ray 10/01/20 13:44 XR chest 1V portable CLINICAL HISTORY: Hypotension. COMPARISON STUDY: Chest radiograph September 15, 2020. FINDINGS: Right ureteral stent is partially imaged. There are cholecystectomy clips. Severe scoliosis of the thoracolumbar spine is incidentally noted. There is no pneumothorax. No consolidation is present. No definite pleural effusion is present. IMPRESSION: 1. No acute findings. 2. Scoliosis. ACT 112: Negative or not required by law. Electronically signed by: Serjio Reese M.D. 10/01/2020 2:20 PM Discharge Plan Visit Data Chief Complaint: Hypotension Stated Complaint: BLOOD PRESSURE LOW, DR REF OVER ED Provider: Jensen Mack Discharge Problem: Hypotension, Anemia, Hypomagnesemia, Hypokalemia, Acute dehydration Patient Disposition: Admitted As Inpatient Condition: Fair Forms Stand Alone Forms: [email or web address] [email or web address] Prescriptions Prescriptions: No Action amitriptyline 25 mg tablet 25 mg PO HS RF: 0 rizatriptan 10 mg tablet 10 mg PO DAILY PRN (Reason: Migraines) RF: 0 fremanezumab-vfrm 225 mg/1.5 mL syringe 225 mg SQ MONTHLY RF: 0 omega-3 fatty acids 1,000 mg capsule 1,000 mg PO QAM RF: 0 ondansetron HCl [Zofran] 4 mg tablet 4 mg PO Q8H PRN (Reason: nausea and vomiting) RF: 0 tramadol 50 mg Tablet 50 mg PO Q8H PRN (Reason: Pain) Qty: 0 RF: 0 ergocalciferol (vitamin D2) 50,000 unit Capsule 50,000 unit PO WK Qty: 0 RF: 0 cyanocobalamin (vitamin B-12) 1,000 mcg/mL Solution 1 dose IM MONTHLY Qty: 0 RF: 0 diphenoxylate-atropine [Lomotil] 2.5-0.025 mg Tablet 1 tab PO QID PRN (Reason: Diarrhea) Qty: 0 RF: 0 gabapentin [Neurontin] 100 mg capsule 300 mg PO TID Qty: 0 RF: 0 hydrocodone-acetaminophen 5-325 mg tablet 1 tab PO DAILY PRN (Reason: Severe Pain (Scale Score 7-10)) RF: 0 calcitriol 0.25 mcg Capsule 0.25 mcg PO MOWEFR RF: 0 acetaminophen 500 mg tablet 500 mg PO Q4H PRN (Reason: Pain) RF: 0 dicyclomine 20 mg Tablet 20 mg PO TID PRN (Reason: Muscle Spasm) Qty: 90 RF: 0 sucralfate [Carafate] 100 mg/mL suspension 1 g PO Q6H 28 Days Qty: 1120 RF: 3 xlzvevbfes-osjwqvpqmcngu-spjo 50-325-40 mg tablet 1 tab PO Q6H PRN (Reason: Pain) RF: 0 alprazolam 0.25 mg tablet 0.25 mg PO DAILY PRN (Reason: Anxiety) RF: 0 calcium carbonate [Oysco-500] 500 mg calcium (1,250 mg) tablet 1,000 mg PO DAILY RF: 0 duloxetine 30 mg capsule,delayed release(DR/EC) 30 mg PO BID RF: 0 phenazopyridine [Pyridium] 200 mg Tablet 200 mg PO TID Qty: 10 RF: 0 tamsulosin 0.4 mg Capsule 0.4 mg PO HS Qty: 10 RF: 0 lidocaine 5 % Adhesive Patch,Medicated 1 patch transdermal QAM Qty: 14 RF: 0 oxybutynin chloride 5 mg Tablet 5 mg PO BID PRN (Reason: bladder spasms) Qty: 20 RF: 0 Floranex 100 million cell Granules In Packet 1 g PO TIDM Qty: 30 RF: 0 magnesium oxide 400 mg (241.3 mg magnesium) Tablet 400 mg PO BID Qty: 10 RF: 0 Referrals Referrals: Evelyn Andrews MD [Primary Care Provider] - Discharge Problem: Hypotension Qualifiers: Hypotension type: unspecified hypotension type Qualified Code(s): I95.9 - Hypotension, unspecified Anemia Qualifiers: Anemia type: unspecified type Qualified Code(s): D64.9 - Anemia, unspecified
--- NOTE | 2020-10-01 14:21 | XRay Report ---
XR chest 1V portable CLINICAL HISTORY: Hypotension. COMPARISON STUDY: Chest radiograph September 15, 2020. FINDINGS: Right ureteral stent is partially imaged. There are cholecystectomy clips. Severe scoliosis of the thoracolumbar spine is incidentally noted. There is no pneumothorax. No consolidation is pres ent. No definite pleural effusion is present. IMPRESSION: 1. No acute findings. 2. Scoliosis. ACT 112: Negative or not required by law. Electronically signed by: Serjio Reese M.D. 10/01/2020 2:20 PM
[2020-10-01 15:10] LABS: Basophils # (auto) 0.05 K/uL (0-0.2); Basophils % (auto) 0.6 %; Eosinophils # (auto) 0.09 K/uL (0-0.5); Eosinophils % (auto) 1.1 %; Hematocrit (blood only) 23.7 % (37-47); Hemoglobin 7.6 g/dL (12.0-16.0); Immature Granulocytes # (auto) 0.02 K/uL (0.00-0.02); Immature Granulocytes % (auto) 0.2 %; Lymphocytes # (auto) 1.83 K/uL (1.2-3.4); Lymphocytes % (auto) 22.5 %; Mean Corpuscular Hemoglobin 30.6 pg (25-34); Mean Corpuscular Hgb Conc 32.1 g/dL (32-36); Mean Corpuscular Volume 95.6 fL (80-100); Mean Platelet Volume 11.2 fL (7.4-10.4); Monocytes % (auto) 3.7 %; Neutrophils # (auto) 5.83 K/uL (1.4-6.5); Neutrophils % (auto) 71.9 %; Platelet Count 448 K/uL (130-400); RDW Coefficient of Variation 14.6 % (11.5-14.5); Red Blood Count 2.48 M/uL (4.2-5.4); White Blood Count 8.12 K/uL (4.8-10.8)
[2020-10-01] MEDS ORDERED: SODIUM CHLORIDE 0.9% 250 ML IV PRN ×2 (15:24→19:07)
[2020-10-01 15:38] LABS: Echinocytes 2+; Polychromasia 1+
--- NOTE | 2020-10-01 16:42 | Electrocardiogram Report ---
Test Reason : Blood Pressure : / mmHG Vent. Rate : 054 BPM Atrial Rate : 054 BPM P-R Int : 124 ms QRS Dur : 080 ms QT Int : 466 ms P-R-T Axes : 009 004 023 degrees QTc Int : 441 ms Sinus bradycardia Low voltage QRS Nonspecific T wave abnormality Abnormal ECG When compared with ECG of 19-SEP-2020 09:03, Nonspecific T wave abnormality now evident in Anterior leads Confirmed by Isaias José ([id number]) on 10/01/2020 4:42:33 PM Referred By: Evelyn Forbes Confirmed By:Isaias José
[2020-10-01 16:45] LABS: Influenza A virus by PCR Negative (Neg); Influenza B virus by PCR Negative (Neg); RSV by PCR Negative (Neg); SARS CoV2 RNA(COVID-19) InHosp NEGATIVE (Negative)
[2020-10-01 17:18] LABS: INR 1.2 (0.9-1.1); Partial Thromboplastin Ratio 1.1; Partial Thromboplastin Time 28.3 Seconds (21.0-31.0); Prothrombin Time 12.1 Seconds (9.0-12.0)
[2020-10-01 17:36] LABS: Alanine Aminotransferase 10 U/L (12-78); Albumin Globulin Ratio 0.5 (0.9-2); Albumin Level 1.6 gm/dl (3.4-5.0); Alkaline Phosphatase 71 U/L (45-117); Aspartate Aminotransferase 7 U/L (15-37); BUN Creatinine Ratio 18.5 (10-20); Bilirubin,Total 0.4 mg/dl (0.2-1); Blood Urea Nitrogen 17 mg/dl (7-18); Calcium 6.8 mg/dl (8.5-10.1); Carbon Dioxide 25 mmol/L (21-32); Chloride 112 mmol/L (98-107); Est GFR (African American) 80.1; Est GFR (Non-African American) 69.1; Globulin 3.1 gm/dl (2.5-4.0); Glucose 87 mg/dl (70-99); Potassium 2.6 mmol/L (3.5-5.1); Sodium 145 mmol/L (136-145); Total Protein 4.7 gm/dl (6.4-8.2); Troponin I < 0.015 ng/ml (0-0.045)
[2020-10-01] MEDS ORDERED: POTASSIUM CHLORIDE CRTAB 20 MEQ TABCR PO STA (17:46)
[2020-10-01] MEDS ORDERED: POTASSIUM CHLORIDE / WTR 10 MEQ/100 ML PLCT IV ONE (17:46)
--- NOTE | 2020-10-01 18:06 | History & Physical Report ---
Date of Service October 01, 2020 Assessment & Plan (1) Anemia: (2) Hypotension: (3) Hypomagnesemia: (4) Hypokalemia: This is a 55-year-old female who has significant past medical history of gastric bypass, mild protein calorie malnutrition, siddhartha deficiency, b12 def, scoliosis, chronic pain syndrome, idiopathic peripheral neuropathy, depression, hyperparathyroidism, PFO Who presents to ED 2/2 to referred by PCP 2/2 to hypotension with SBP in 70s. Hypotension Anemia Likely in setting of recent nausea/vomiting, dehydration and complicated by a/c anemia improved with administration of IVF, less likely infectious although not ruled out Urine and blood cultures pending admit to medical with tele continue IVF 75cc/hr + 20meq KCL monitor renal function hypokalemia, hypomagnesemia, hyperchloremia 2g mag sulfate ordered in ED received 20meq oral KCL and 10meq IV kcl in ED order 40meq po x1 now and continue supplementation through IVF follow labs Recent UTI - E.coli Ureteral Stone with hydronephrosis - R stent still in place, pt complaining of significant pain to R flank with radiation to R groin, worsening past 2 days continued hematuria UA + Leuks, wbc afebrile, WBC WNl tx empirically with IV rocephin until UA returns in setting of hypotension consult urology Acute on Chronic Anemia pt hgb trending down since 06/2020, 11.3 now 7.6 likely exacerbated by hematuria transfuse 1 unit PRBC now follow hgb anemia panel ordered ECG Change pt with new t wave inversion leads v1-v2 (previously only V1) repeat ecg in am trop negative, pt denies chest pain Chronic abdominal pain continue increased bentyl, carafate follows GI - to have EGD/Colonoscopy 10/08 history of gastric bypass continue b12 injections 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 Sandoval, please see addendum History of Present Illness Chief Complaint: Referred by PCP 2/2 to hypotension with SBP in 70s. Primary Care Provider: Evelyn Forbes MD This is a 55-year-old female who has significant past medical history of gastric bypass, mild protein calorie malnutrition, siddhartha deficiency, b12 def, scoliosis, chronic pain syndrome, idiopathic peripheral neuropathy, depression, hyperparathyroidism, PFO Who presents to ED 2/2 to referred by PCP 2/2 to hypotension with SBP in 70s. Of significance patient recently hospitalized 09/15 to 09/24/2020 secondary to hypotension while in pain clinic. Initially hypotension in setting of diarrhea and malabsorption. She had severe electrolyte abnormalities including hypokalemia hypocalcemia hypomagnesemia and hyperchloremia. These were replaced. She was also found to have E. coli UTI and right ureteral stone causing hydronephrosis and mild ROBINSON. She underwent cystoscopy and stent placement. She continues to have stent in place. She was doing well initially post discharge for 2 days; however pain has returned to RUQ and continues to have hematuria. Pain radiates down to R groin and R back. She notes gross blood in urine. Complains of nausea, decreased appetite, and emesis. She also has diarrhea but that's not abnormal for her. She denies melena or hematochezia. She went for hospital follow up today. Her SBP was in 70s and was also that yesterday. Normally her BP is 90s/70s. Yesterday she was extremely dizzy and sbp in 70s. She was able to work but felt unwell. Complains of dysuria, increased urinary freq but denies F/C/S. She admits to hx of transfusion in past, many years ago. In ED pt was initially hypotensive but this improved with IVF. Lab abd including hgb 7.6, hct 23.7, plt 448, K, 2.6, Chloride 112, corrected ca8.7, mag 1.3. CXR revealed no acute findings. She did receive some potassium supplementation. Allergies Allergy/AdvReac Type Severity Reaction Status Date / Time Penicillins Allergy Unknown ? REACTION Verified 10/01/20 14:38 Sulfa (Sulfonamide Allergy Unknown Unknown Verified 10/01/20 14:38 Antibiotics) reaction aspirin AdvReac Mild No an Verified 10/01/20 14:38 allergy- cannot take post-bypass surgery ragweed pollen AdvReac Mild swelling Verified 10/01/20 14:38 Home Medications Medication Instructions Recorded Confirmed Type tramadol 50 mg PO Q8H PRN #0 tab 03/29/13 10/01/20 History ergocalciferol (vitamin D2) 50,000 unit PO WK #0 cap 11/26/13 10/01/20 History cyanocobalamin (vitamin B-12) 1 dose IM MONTHLY #0 06/11/14 10/01/20 History diphenoxylate-atropine [Lomotil] 1 tab PO QID PRN #0 tab 08/02/16 10/01/20 History amitriptyline 25 mg tablet 25 mg PO HS tab 11/06/18 10/01/20 History rizatriptan 10 mg tablet 10 mg PO DAILY PRN tab 11/06/18 10/01/20 History fremanezumab-vfrm 225 mg/1.5 mL 225 mg SQ MONTHLY ml 04/15/19 10/01/20 History subcutaneous syringe alprazolam 0.25 mg PO DAILY PRN 06/28/19 10/01/20 History ltvxyyrvjm-irghcysedsgtw-aitj 1 tab PO Q6H PRN 06/28/19 10/01/20 History calcium carbonate [Oysco-500] 1,000 mg PO DAILY 06/28/19 10/01/20 History omega-3 fatty acids 1,000 mg 1,000 mg PO QAM 07/25/19 10/01/20 History capsule duloxetine 30 mg capsule,delayed 30 mg PO BID cap 10/29/19 10/01/20 History release gabapentin 100 mg capsule 300 mg PO TID #0 cap 10/29/19 10/01/20 History ondansetron HCl 4 mg tablet 4 mg PO Q8H PRN 10/29/19 10/01/20 History acetaminophen 500 mg PO Q4H PRN 08/23/20 10/01/20 History calcitriol 0.25 mcg PO MOWEFR 08/23/20 10/01/20 History hydrocodone-acetaminophen 1 tab PO DAILY PRN 08/23/20 10/01/20 History dicyclomine 20 mg PO TID PRN #90 tab 08/26/20 10/01/20 Rx sucralfate [Carafate] 1 g PO Q6H 28 Days #1120 ml 08/27/20 10/01/20 Rx Lactobacillus acidoph-L.bulgar 1 g PO TIDM #30 ea 09/24/20 10/01/20 Rx [Floranex] lidocaine 1 patch TRANSDERMAL QAM #14 ea 09/24/20 10/01/20 Rx magnesium oxide 400 mg PO BID #10 tab 09/24/20 10/01/20 Rx oxybutynin chloride 5 mg PO BID PRN #20 tab 09/24/20 10/01/20 Rx phenazopyridine [Pyridium] 200 mg PO TID #10 tab 09/24/20 10/01/20 Rx tamsulosin 0.4 mg PO HS #10 cap 09/24/20 10/01/20 Rx Past Med/Surg History Medical History (Updated 10/02/20 @ 11:27 by JARON Contreras) Anemia Copper deficiency Malabsorption Migraine headache Zinc poisoning Surgical History (Updated 10/02/20 @ 11:27 by JARON Contreras) History of bowel diversion surgery History of cholecystectomy History of gastric bypass Hx of cardiac cath jul 01 2019 Family History Mother Coronary heart disease Social History (Updated 10/01/20 @ 20:38 by Nadiya Mayers PA-C) Smoking Status: Current every day smoker packs per day: 1; Cigarettes Per Day: 20-30; Second Hand Exposure: Yes; Do You Dip or Chew Tobacco: No; Tobacco Cessation Education Requested by Patient: No Hx Alcohol Use: No Hx Substance Use: No Preferred Language: Kazakh Communication Ability: Effective Visual Impairment: No Limitations Hearing Ability: Normal 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 Feels Safe at Home: Yes Safety Concerns: Feels Safe At This Time Assistive Devices: Glasses Review of Systems Review of Systems: All systems reviewed & are unremarkable except as noted in HPI & below Physical Exam Physical Exam: Constitutional: Thin, fraile, F, vitals as above, NAD, sitting up in bed, pleasant, conversing easily Head: Normocephalic, Atraumatic Eyes: PERRL, conjunctivae normal, anicteric sclerae ENMT: external ear and nose normal, oropharynx normal Neck: trachea midline, no thyromegaly normal visual inspection Respiratory: normal respiratory effort, lungs clear to auscultation, no wheeze, rales, rhonchi. Normal insp/exp effort, no accessory muscle use Cardiovascular: RRR, no murmur, + edema to b/l lower ext and LUE, US guided IV in place, Vessels: no JVD or carotid bruit Chest: normal inspection of chest Abdomen: normal bowel sounds, soft, nontender, no hepatosplenomegaly Musculoskeletal: no cyanosis or clubbing, extremities motor strength 5/5 Skin: no rashes, warm and dry normal turgor Neurologic: PERRL, EOMI, accommodation nl, no face palsy, no dysarthria CN's II-XI intact bilaterally and moves all extremities Psychiatric: A+Ox3, euthymic affect Lymphatic: no cervical or axillary lymphadenopathy : deferred Results & Data Results & Data ([facility]) Vital Signs (Past 12 Hours) Vital Signs Temp Pulse Pulse Resp BP BP Pulse Ox 10/01/20 17:00 62 16 109/63 96 10/01/20 16:30 57 L 15 116/63 97 10/01/20 16:00 63 16 109/65 97 10/01/20 15:30 67 17 106/66 10/01/20 15:00 55 L 15 124/60 10/01/20 14:31 54 L 11 L 102/66 98 10/01/20 14:01 60 20 112/61 98 10/01/20 13:41 66 12 108/61 96 10/01/20 11:14 36.8 C 80 16 81/53 L 93 Diagnostic Findings Chest X-Ray 10/01/20 13:44 XR chest 1V portable CLINICAL HISTORY: Hypotension. COMPARISON STUDY: Chest radiograph September 15, 2020. FINDINGS: Right ureteral stent is partially imaged. There are cholecystectomy clips. Severe scoliosis of the thoracolumbar spine is incidentally noted. There is no pneumothorax. No consolidation is present. No definite pleural effusion is present. IMPRESSION: 1. No acute findings. 2. Scoliosis. ACT 112: Negative or not required by law. Electronically signed by: Serjio Reese M.D. 10/01/2020 2:20 PM Medications Administered Discontinued Medications Sodium Chloride (Nss) 500 mls @ 999 mls/hr IV .Q31M ONE Stop: 10/01/20 14:14 Last Infusion: 10/01/20 16:00 Dose: 0 mls/hr Documented by: [id number] Admin: 10/01/20 15:08 Dose: 999 mls/hr Documented by: [id number] Sodium Chloride (Nss 1000ml) 500 mls @ 999 mls/hr IV .Q31M ONE Stop: 10/01/20 14:35 Last Infusion: 10/01/20 15:32 Dose: 0 mls/hr Documented by: [id number] Admin: 10/01/20 15:02 Dose: 999 mls/hr Documented by: [id number] Acetaminophen (Ofirmev) 65 mls @ 200 mls/hr IV NOW ONE; Protocol Stop: 10/01/20 14:24 Last Infusion: 10/01/20 15:22 Dose: 0 mls/hr Documented by: [id number] Admin: 10/01/20 15:02 Dose: 200 mls/hr Documented by: [id number] Potassium Chloride (K Harvey / Wtr) 10 meq in 100 mls @ 100 mls/hr IV ONE ONE Stop: 10/01/20 18:45 Last Infusion: 10/01/20 20:03 Dose: 0 mls/hr Documented by: [id number] Admin: 10/01/20 18:01 Dose: 100 mls/hr Documented by: [id number] Magnesium Sulfate/Dextrose (Magnesium Sulfate / D5w) 1 gm in 100 mls @ 100 mls/hr IV Q1H ALEKS Stop: 10/01/20 20:12 Last Admin: 10/01/20 20:09 Dose: 100 mls/hr Documented by: [id number] Infusion: 10/01/20 20:02 Dose: 0 mls/hr Documented by: [id number] Admin: 10/01/20 18:26 Dose: 100 mls/hr Documented by: [id number] Morphine Sulfate (Morphine Sulfate 2 Mg/Ml Carp) 2 mg IV NOW STA Stop: 10/01/20 14:09 Last Admin: 10/01/20 15:06 Dose: 2 mg Documented by: [id number] Ondansetron HCl (Ondansetron Inj 2 Mg/Ml 2 Ml Vial) 4 mg IV NOW STA Stop: 10/01/20 14:06 Last Admin: 10/01/20 15:06 Dose: 4 mg Documented by: [id number] Potassium Chloride (Potassium Chloride Crtab 20 Meq Tabcr) 20 meq PO NOW STA Stop: 10/01/20 17:47 Last Admin: 10/01/20 18:01 Dose: 20 meq Documented by: [id number] ECG Rate (beats per minute): 54 Rhythm: sinus bradycardia Findings: + T-wave inversion (anteriorly) COVID-19 Results Results COVID-19 Adm Lab Results: RBC 2.84 M/uL (4.2-5.4) L 10/02/20 WBC 6.93 K/uL (4.8-10.8) 10/02/20 Hgb 8.6 g/dL (12.0-16.0) L 10/02/20 Hct 26.4 % (37-47) L 10/02/20 Plt Count 433 K/uL (130-400) H 10/02/20 Neutrophils (%) (Auto) 71.9 % 10/01/20 Lymphocytes (%) (Auto) 22.5 % 10/01/20 Monocytes # (Auto) 0.30 K/uL (0.11-0.59) 10/01/20 Eosinophils # (Auto) 0.09 K/uL (0-0.5) 10/01/20 Immature Granulocyte % (Auto) 0.2 % 10/01/20 Neutrophils # (Auto) 5.83 K/uL (1.4-6.5) 10/01/20 Lymphocytes # (Auto) 1.83 K/uL (1.2-3.4) 10/01/20 Monocytes # (Auto) 0.30 K/uL (0.11-0.59) 10/01/20 Eosinophils # (Auto) 0.09 K/uL (0-0.5) 10/01/20 Basophils # (Auto) 0.05 K/uL (0-0.2) 10/01/20 Immature Granulocyte # (Auto) 0.02 K/uL (0.00-0.02) 10/01/20 Polychromasia 1+ 10/01/20 Echinocytes 2+ 10/01/20 Na 145 mmol/L (136-145) 10/02/20 K 3.7 mmol/L (3.5-5.1) 10/02/20 Cl 115 mmol/L (98-107) H 10/02/20 CO2 25 mmol/L (21-32) 10/02/20 Anion Gap 5.0 (3-11) 10/02/20 BUN 13 mg/dl (7-18) 10/02/20 Creatinine 0.70 mg/dl (0.6-1.2) 10/02/20 BUN/Creatinine Ratio 18.2 (10-20) 10/02/20 Glucose Level 75 mg/dl (70-99) 10/02/20 Ca 7.4 mg/dl (8.5-10.1) L 10/02/20 Phosphorus Level 2.8 mg/dl (2.5-4.9) 10/02/20 Total Bilirubin 0.4 mg/dl (0.2-1) 10/02/20 AST/SGOT 8 U/L (15-37) L 10/02/20 ALT/SGPT 9 U/L (12-78) L 10/02/20 Alkaline Phosphatase 72 U/L (45-117) 10/02/20 Total Protein 4.7 gm/dl (6.4-8.2) L 10/02/20 Albumin 1.6 gm/dl (3.4-5.0) L 10/02/20 Globulin 3.1 gm/dl (2.5-4.0) 10/02/20 Albumin/Globulin Ratio 0.5 (0.9-2) L 10/02/20 Troponin I < 0.015 ng/ml (0-0.045) 10/01/20 Ferritin 162.2 ng/ml (8-388) 10/01/20 PTT 28.3 Seconds (21.0-31.0) 10/01/20 INR 1.2 (0.9-1.1) H 10/01/20 COVID-19 PCR NEGATIVE (Negative) 10/01/20 Influenza Virus Type A (PCR) Negative (Neg) 10/01/20 Influenza Virus Type B (PCR) Negative (Neg) 10/01/20 Chest X-Ray 10/01/20 Code Status & VTE Plan Code Status Full Code VTE Prophylaxis Plan VTE Prophylaxis will be ordered: No Reason for no VTE drug order: Contraindicated Supervising Physician Co-Signing Physician Notes Patient is a 55-year-old female with multiple comorbidities presents with history of ureteral stent pain, hematuria, nausea, decreased appetite, vomiting and diarrhea. She was found to be hypotensive while at her PCPs office. She also states having dizziness. Please review HPI for complete details of presentation. She was found to have anemia, hypokalemia, hypomagnesemia. KUB showed unchanged positioning of the right ureteral stent. On exam patient is thin, no apparent distress, normocephalic atraumatic, lungs clear to auscultation, normal breath sounds, S1-S2, no murmur, +bilateral lower extremity edema, abdomen soft, right lower quadrant minimal tenderness, normal bowel sounds, alert, awake, oriented, grossly no focal neurologic deficits. Patient is admitted for management of hypotension, anemia, electrolyte imbalances, retrosternal pain. Agree with IV fluids, IV antibiotics and replace electrolytes. Will consult urology for further input. I personally reviewed the record. Patient is interviewed and examined at bedside. Patient's care is coordinated with Nadiya Mayers PA-C. Please refer to the documentation above for details of patient's presentation and for discussion of other issues. (1) Anemia Anemia type: unspecified type Qualified Code(s): D64.9 - Anemia, unspecified (2) Hypotension Hypotension type: unspecified hypotension type Qualified Code(s): I95.9 - Hypotension, unspecified
[2020-10-01 18:12] LABS: Magnesium 1.3 mg/dl (1.8-2.4)
[2020-10-01] MEDS: MAGNESIUM SULFATE / D5W 1 GM/100 ML BAG IV SCH ×2 (18:26→20:09)
[2020-10-01 18:29] LABS: Appearance Urine Turbid (Clear); Bacteria Urine Automated Negative (Negative); Blood Urine 3+ (Negative); Color Urine Orange; Glucose Urine UA Negative (Negative); Ketones Urine Negative (Negative); Leukocyte Esterase Urine 2+ (Negative); Nitrite Urine Negative (Negative); Protein Urine 2+ (Negative); Specific Gravity Urine 1.021 (1.000-1.030); Urobilinogen Urine Negative (Negative); WBC Urine Automated >30 /hpf (0-5); pH Urine 6.5 (4.5-7.5)
[2020-10-01 18:33] LABS: Bilirubin Urine 1+ (Negative)
[2020-10-01 18:45] LABS: RBC Urine Automated >30 /hpf (0-4)
[2020-10-01] MEDS ORDERED: POTASSIUM CHLORIDE 10 MEQ TABCR PO STA (20:02)
[2020-10-01] MEDS ORDERED: DICYCLOMINE HCL 20 MG TAB PO PRN (21:12)
[2020-10-01] MEDS ORDERED: MAGNESIUM HYDROXIDE SUSP 30 ML UDC PO PRN (21:12)
[2020-10-01] MEDS ORDERED: ACETAMINOPHEN 325 MG TAB PO PRN (21:12)
[2020-10-01] MEDS ORDERED: DIPHENOXYLATE/ATROPINE 2.5/0.025MG TAB PO PRN (21:12)
[2020-10-01] MEDS ORDERED: PHENAZOPYRIDINE HCL 200 MG TAB PO PRN (21:12)
[2020-10-01] MEDS ORDERED: ONDANSETRON INJ 2 MG/ML 2 ML VIAL IV PRN (21:12)
[2020-10-01] MEDS ORDERED: ALUMINUM/MAGNESIUM SUSP 30 ML UDC PO PRN (21:12)
[2020-10-01] MEDS ORDERED: ALPRAZolam 0.25 MG TABLET PO PRN (21:12)
[2020-10-01] MEDS ORDERED: POLYETHYLENE (MIRALAX) 17 GM PACK PO PRN (21:12)
[2020-10-01] MEDS ORDERED: ONDANSETRON 4 MG OD TAB PO PRN (21:29)
[2020-10-01] MEDS: TAMSULOSIN HCL 0.4 MG CAP PO SCH (22:36)
[2020-10-01] MEDS: AMITRIPTYLINE HCL 25 MG TAB PO SCH (22:36)
[2020-10-01] MEDS: GABAPENTIN 300 MG CAP PO SCH (22:37)
[2020-10-01] MEDS: NICOTINE 14 MG/24 HR PATCH TD SCH (22:37)
[2020-10-01] MEDS: MAGNESIUM OXIDE 400 MG TAB PO SCH (22:38)
[2020-10-01] MEDS: DULoxetine HCL 30 MG CAP PO SCH (22:39)
[2020-10-01] MEDS: NSS + 20MEQ KCL 20 MEQ/1,000 ML BAG IV SCH (22:40)
[2020-10-01] MEDS: SUCRALFATE 1 GM/10 ML UDC PO SCH (23:03)
[2020-10-01] MEDS: HYDROCODONE/ACETAMOPHEN 5/325MG TAB PO PRN (23:03)
[2020-10-01] MEDS: cefTRIAXone SODIUM 1,000 MG in DEXTROSE 5% 50 ML IV SCH (23:50)
[2020-10-02 00:13] LABS: Ferritin 162.2 ng/ml (8-388); Thyroid Stimulating Hormone 1.2 uIu/ml (0.300-4.500)
[2020-10-02 00:29] LABS: Folate (Folic Acid) 11.7 ng/ml (>5.38)
[2020-10-02] MEDS: SUCRALFATE 1 GM/10 ML UDC PO SCH ×3 (06:00→18:25)
--- NOTE | 2020-10-02 06:38 | Ultrasound Report ---
US venous doppler UE LT HISTORY: 55 years-old Female edema acute pain and swelling of the left upper extremity COMPARISON: None TECHNIQUE: Multiple real-time sonographic images of the left upper extremity deep venous structures w ere obtained assessing grayscale appearance, color and spectral flow FINDINGS: IV catheter is noted within the distal brachial vein. No superficial or deep venous thrombosis identi fied. IMPRESSION: No DVT. ACT 112: Negative or not required by law. The above report was generated using voice recognition software. It may contain grammatical, syntax o r spelling errors. Electronically signed by: Navin Lafleur M.D. 10/02/2020 6:37 AM
--- NOTE | 2020-10-02 06:53 | XRay Report ---
KUB HISTORY: Follow up study in a patient with right ureteral stent recent R ureter stent placed COMPARISON: KUB 09/24/2020, CT abdomen and pelvis 09/19/2020 FINDINGS: Nonobstructive bowel gas pattern. Air-filled loops of large and small bowel. Cholecystectom y. Renal shadows are partially obscured by bowel gas. Right ureteral stent appears to be in satisfac tory positioning. Numerous small calcifications measuring up to 2-3 mm (possibly as many as 6) are no dai along the course of the right ureter, most of which are noted at the level of L3-L4 1 punctate fo cus within the right hemipelvis. Decreased amount of right nephrolithiasis. Unchanged left nephrolith iasis. No pneumoperitoneum or pneumatosis. No fracture. IMPRESSION: 1. Unchanged positioning of the right ureteral stent. Numerous calcifications along the course of the stent measuring up to 2-3 mm are suggestive of ureteral calculi. 2. Decreased amount of right nephrolithiasis. ACT 112: Negative or not required by law. The above report was generated using voice recognition software. It may contain grammatical, syntax o r spelling errors. Electronically signed by: Navin Lafleur M.D. 10/02/2020 6:52 AM
--- NOTE | 2020-10-02 07:07 | Ultrasound Report ---
ULTRASOUND BILATERAL LOWER EXTREMITY VENOUS CLINICAL HISTORY: Lower extremity edema. COMPARISON STUDY: No priors. TECHNIQUE: Real-time, grayscale, and color Doppler sonography of the deep veins of the right and left lower extremity was performed from the inguinal crease to the calf. Compression and augmentation wer e utilized. FINDINGS: There is no sonographic evidence of deep venous thrombosis identified in the right or left lower extremity. The common femoral, superficial femoral, and popliteal veins are patent and normally compressible bilaterally. The greater saphenous vein and the profunda femoris vein at the junction w ith the common femoral vein are clear in both legs. The visualized calf veins are patent bilaterally. A left-sided popliteal cyst measures 5.7 x 1.0 x 1.7 cm. Soft tissue edema is noted in both legs. IMPRESSION: 1. There is no sonographic evidence of deep venous thrombosis identified in the right or left lower e xtremity. 2. Left-sided Conteh's cyst. ACT 112: Negative or not required by law. Electronically signed by: Jensen Guillaume M.D. 10/02/2020 7:06 AM
[2020-10-02 07:56] LABS: Hematocrit (blood only) 26.4 % (37-47); Hemoglobin 8.6 g/dL (12.0-16.0); Mean Corpuscular Hemoglobin 30.3 pg (25-34); Mean Corpuscular Hgb Conc 32.6 g/dL (32-36); Mean Platelet Volume 10.9 fL (7.4-10.4); Platelet Count 433 K/uL (130-400); RDW Coefficient of Variation 15.9 % (11.5-14.5); RDW Standard Deviation 52.4 fL (36.4-46.3); Red Blood Count 2.84 M/uL (4.2-5.4); White Blood Count 6.93 K/uL (4.8-10.8)
[2020-10-02 08:54] LABS: Albumin Globulin Ratio 0.5 (0.9-2); Albumin Level 1.6 gm/dl (3.4-5.0); BUN Creatinine Ratio 18.2 (10-20); Bilirubin,Total 0.4 mg/dl (0.2-1); Calcium 7.4 mg/dl (8.5-10.1); Creatinine Clr Calc Pharmacy 60.5 ml/min; Est GFR (African American) 111.5; Est GFR (Non-African American) 96.2; Globulin 3.1 gm/dl (2.5-4.0); Magnesium 1.8 mg/dl (1.8-2.4); Phosphorus 2.8 mg/dl (2.5-4.9); Potassium 3.7 mmol/L (3.5-5.1); Total Protein 4.7 gm/dl (6.4-8.2)
[2020-10-02] MEDS: traMADol HCL 50 MG TABLET PO PRN ×2 (08:56→20:21)
[2020-10-02] MEDS: CALCITRIOL 0.25 MCG CAPSULE PO SCH (08:57)
[2020-10-02] MEDS: DULoxetine HCL 30 MG CAP PO SCH ×2 (08:57→20:21)
[2020-10-02] MEDS: OMEGA-3 (PURIFIED FISH OIL) 1 GM CAP PO SCH (08:58)
[2020-10-02] MEDS: MAGNESIUM OXIDE 400 MG TAB PO SCH ×2 (08:58→20:21)
[2020-10-02] MEDS: CALCIUM CARBONATE 1250MG TAB PO SCH (08:58)
[2020-10-02] MEDS: LIDOCAINE 5% 1 PATCH TD SCH (08:58)
[2020-10-02] MEDS: GABAPENTIN 300 MG CAP PO SCH ×3 (08:58→20:21)
[2020-10-02] MEDS ORDERED: ERGOCALCIFEROL 50,000 UNITS 1250 MCG CAP PO SCH (09:00)
[2020-10-02] MEDS: LACTOBACILLUS ACIDOPHILUS 1 GM PACK PO SCH ×3 (09:07→18:25)
[2020-10-02] MEDS ORDERED: MoRPHine SULFATE 2 MG/ML CARP IV PRN ×2 (10:39→11:30)
--- NOTE | 2020-10-02 11:02 | Urology Consultation ---
Date of Consultation October 02, 2020 Assessment & Plan (1) Right ureteral calculus: (2) Renal colic on right side: (3) S/P ureteral stent placement: (4) Acute hypotension: 55yo F admitted with acute hypotension and worsening right flank pain - Patient is s/p Cysto, Right Ureteroscopy, Laser Litho, Stone Basket Extraction, Ureteral Dilation, and Right Stent Placement on 09/[address] Farias. - Hospital course, imaging, and past medical history reviewed. - Plan of care and imaging reviewed with Dr. Farias - She is afebrile, VSS. - Labs reviewed, Wbc and creatinine stable. - Patient with acute on chronic anemia. Hemoglobin up to 8.6 today, transfused with 1 unit PRBC yesterday. - Urine and blood cultures pending - KUB from yesterday showed unchanged positioning of the right ureteral stent with numerous calcifications along the course of the stent measuring up to 2-3 mm and suggestive of ureteral calculi. - No acute intervention warranted at this time. - Patient is scheduled for outpatient follow-up with urology on 10/14 for possible stent removal pending KUB imaging - Recommend continue supportive care, antibiotics, and pain control per primary team - Continue to trend labs - Will continue to follow History of Present Illness Reason for Consultation: Right flank pain Attending Physician: Gallo Sandoval MD History of Present Illness 55-year-old female with a PMHx of gastric bypass, mild protein calorie malnutrition, siddhartha deficiency, b12 def, scoliosis, chronic pain syndrome, i diopathic peripheral neuropathy, depression, hyperparathyroidism, patent foramen ovale who presented to the ED secondary to referral by PCP for hypotension. She also reported worsening right flank pain, hematuria, and nausea vomiting in the setting of a right ureteral stent. Of note, patient was discharged from our hospital just over a week ago. She was in for around 10 days for a right ureteral calculus with hydronephrosis. She is s/p Cystoscopy, Right Ureteroscopy, Laser Lithotripsy, Stone Basket Extraction, Ureteral Dilation, Retrograde pyelogram, and Right Stent Placement on 09/[address] Farias. Patient did grow E. coli on her initial urinary culture. The E. coli was pansensitive and she did receive IV antibiotic therapy. On presentation to the ER, she was initially hypotensive but this improved with IVF. Afebrile, Wbc and creatinine wnl. Hemoglobin 7.6. Urinalysis with 3+blood, 2+ Leuks, >30 WBC, >30 RBC, negative bacteria, negative nitrite. KUB IMPRESSION: 1. Unchanged positioning of the right ureteral stent. Numerous calcifications along the course of the stent measuring up to 2-3 mm are suggestive of ureteral calculi. 2. Decreased amount of right nephrolithiasis. Urology consulted for right flank pain, recent stent placement. Patient examined at bedside this AM. Awake, resting in bed on arrival. She complains of right flank pain radiating to right groin area, managing with IV pain medication. She currently rates pain 8/10. She denies fevers or chills. Some mild nausea, no vomiting. Notes some hematuria and dysuria. Also reports urinary urgency, frequency, and occasional leakage. She is wearing a depends for protection. Feels she is emptying her bladder. She also reports a decreased appetite. No CP/SOB. No dizziness. Chart review 10/02: Afebrile, Wbc and Cr normal. Hgb 8.6 today. She was transfused with 1 unit PRBC yesterday. Urine and blood cultures pending. On IV Ceftriaxone. On PO flomax. Offers no additional complaints today Allergies Allergy/AdvReac Type Severity Reaction Status Date / Time Penicillins Allergy Unknown ? REACTION Verified 10/01/20 14:38 Sulfa (Sulfonamide Allergy Unknown Unknown Verified 10/01/20 14:38 Antibiotics) reaction aspirin AdvReac Mild No an Verified 10/01/20 14:38 allergy- cannot take post-bypass surgery ragweed pollen AdvReac Mild swelling Verified 10/01/20 14:38 Home Medications Medication Instructions Recorded Confirmed Type tramadol 50 mg PO Q8H PRN #0 tab 03/29/13 10/01/20 History ergocalciferol (vitamin D2) 50,000 unit PO WK #0 cap 11/26/13 10/01/20 History cyanocobalamin (vitamin B-12) 1 dose IM MONTHLY #0 06/11/14 10/01/20 History diphenoxylate-atropine [Lomotil] 1 tab PO QID PRN #0 tab 08/02/16 10/01/20 History amitriptyline 25 mg tablet 25 mg PO HS tab 11/06/18 10/01/20 History rizatriptan 10 mg tablet 10 mg PO DAILY PRN tab 11/06/18 10/01/20 History fremanezumab-vfrm 225 mg/1.5 mL 225 mg SQ MONTHLY ml 04/15/19 10/01/20 History subcutaneous syringe alprazolam 0.25 mg PO DAILY PRN 06/28/19 10/01/20 History unybinhajo-idxawuobrgejf-tlip 1 tab PO Q6H PRN 06/28/19 10/01/20 History calcium carbonate [Oysco-500] 1,000 mg PO DAILY 06/28/19 10/01/20 History omega-3 fatty acids 1,000 mg 1,000 mg PO QAM 07/25/19 10/01/20 History capsule duloxetine 30 mg capsule,delayed 30 mg PO BID cap 10/29/19 10/01/20 History release gabapentin 100 mg capsule 300 mg PO TID #0 cap 10/29/19 10/01/20 History ondansetron HCl 4 mg tablet 4 mg PO Q8H PRN 10/29/19 10/01/20 History acetaminophen 500 mg PO Q4H PRN 08/23/20 10/01/20 History calcitriol 0.25 mcg PO MOWEFR 08/23/20 10/01/20 History hydrocodone-acetaminophen 1 tab PO DAILY PRN 08/23/20 10/01/20 History dicyclomine 20 mg PO TID PRN #90 tab 08/26/20 10/01/20 Rx sucralfate [Carafate] 1 g PO Q6H 28 Days #1120 ml 08/27/20 10/01/20 Rx Lactobacillus acidoph-L.bulgar 1 g PO TIDM #30 ea 09/24/20 10/01/20 Rx [Floranex] lidocaine 1 patch TRANSDERMAL QAM #14 ea 09/24/20 10/01/20 Rx magnesium oxide 400 mg PO BID #10 tab 09/24/20 10/01/20 Rx oxybutynin chloride 5 mg PO BID PRN #20 tab 09/24/20 10/01/20 Rx phenazopyridine [Pyridium] 200 mg PO TID #10 tab 09/24/20 10/01/20 Rx tamsulosin 0.4 mg PO HS #10 cap 09/24/20 10/01/20 Rx Patient History Medical History (Updated 10/02/20 @ 11:27 by JARON Contreras) Anemia Copper deficiency Malabsorption Migraine headache Zinc poisoning Surgical History (Updated 10/02/20 @ 11:27 by JARON Contreras) History of bowel diversion surgery History of cholecystectomy History of gastric bypass Hx of cardiac cath jul 01 2019 Family History Mother Coronary heart disease Social History (Updated 10/01/20 @ 20:38 by Nadiya Mayers PA-C) Smoking Status: Current every day smoker packs per day: 1; Cigarettes Per Day: 20-30; Second Hand Exposure: Yes; Do You Dip or Chew Tobacco: No; Tobacco Cessation Education Requested by Patient: No Hx Alcohol Use: No Hx Substance Use: No Preferred Language: Yakut Communication Ability: Effective Visual Impairment: No Limitations Hearing Ability: Normal Book Reviewer Required: No Beliefs That Will Affect Care: None marital status: Current Living Situation: Spouse Current Living Situation Comment: in middle of divorce current occupational status: disabled 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- [employer] Feels Safe at Home: Yes Safety Concerns: Feels Safe At This Time Assistive Devices: Glasses Review of Systems Review of Systems: All systems reviewed & are unremarkable except as noted in HPI & below Physical Exam Constitutional: well developed and + thin; no acute distress Respiratory: no respiratory distress and no labored breathing Cardiovascular: Extremities: no calf tenderness Gastrointestinal (Abdomen): Inspection/Auscultation: abdomen not distended Percussion/Palpation: + abdomen tender (mild right flank tenderness with palpation) and abdomen soft; no guarding Musculoskeletal: Head/Neck/Chest: normocephalic and head atraumatic Skin: Warm and dry. No visible rashes or lesions. Neurologic: moves all extremities and awake Psychiatric: Orientation: alert, oriented x 3 and cooperative Results & Data ([facility]) Vital Signs (Past 12 Hours) Vital Signs Temp Pulse Pulse Pulse Resp BP Pulse Ox 10/02/20 07:48 36.5 C 61 18 109/69 94 10/02/20 07:09 65 10/02/20 04:00 36.4 C L 68 18 111/65 95 10/01/20 23:00 36.4 C L 64 18 104/68 97 PG Care Time/CCT Total # of Minutes Spent Total Time Spent with Patient: Total time spent is greater than 50% in coordination of care (as documented) at patient's floor/unit and/or counseling patient: Coding Level of Care Code 63983 Inpt Consult Level 4 Diagnoses Right ureteral calculus N20.1 Renal colic on right side N23 S/P ureteral stent placement Z96.0 Acute hypotension I95.9
[2020-10-02] MEDS: NICOTINE 14 MG/24 HR PATCH TD SCH (12:10)
[2020-10-02] MEDS: NSS + 20MEQ KCL 20 MEQ/1,000 ML BAG IV SCH (13:02)
--- NOTE | 2020-10-02 19:27 | Hospitalist Progress Note ---
Date of Service October 02, 2020 Assessment & Plan (1) Anemia: (2) Hypotension: (3) Hypomagnesemia: (4) Hypokalemia: Patient is a 55 yr female with H/O Gastric bypass, mild protein calorie malnutrition, siddhartha deficiency, b12 def, scoliosis, chronic pain syndrome, idiopathic peripheral neuropathy, depression, hyperparathyroidism, PFO Who presents to ED 2/2 to referred by PCP 2/2 to hypotension with SBP in 70s. Hypotension Anemia Likely secondary to GI loses/Dehydration--nausea, vomiting, diarrhea R/O infection Continue IV fluids Blood culture no growth to date Urine culture pending Empirically on Rocephin Check stool studies if recurrence of diarrhea Tolerates regular diet Right ureteral stent pain S/P lithotripsy, stone basket extraction, ureteral dilatation and right stent placement by Dr. Farias on September 21 KUB showed unchanged positioning of the stent Continue conservative management Appreciate urology input Needs follow-up with urology upon discharge Hypokalemia, hypomagnesemia, hyperchloremia Secondary to GI loses Replace electrolytes as needed Recent UTI - E.coli Repeat urine culture pending On Rocephin empirically Acute on Chronic Anemia Likely multifactorial Possible Acute blood loss anemia in setting of hematuria Iron panel, vitamin B12, folate levels not contributory Check fecal occult S/P 1 unit PRBCs Malabsorption from gastric bypass contributing as well Monitor H&H and transfuse PRBCs as able Chronic abdominal pain continue bentyl, carafate follows GI: Planned for EGD/Colonoscopy 10/08 H/O Gastric bypass continue b12 injections Protein calorie malnutrition 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 Appreciate management Chronic pain H/O Migraines Neuropathy Follows with pain management Depression/Anxiety mood stable continue amitriptyline, duloxetine Hyperparathyroidism continue calcitriol Tobacco abuse 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 Nicotine patch Code Status FULL CODE DVT Px: SCDs Admission and Anticipated Discharge Date Admission Date: October 01, 2020 Subjective Patient is seen and examined at bedside States having right lower quadrant pain Also reports having nausea Denies diarrhea today Also denies chest pain, dyspnea, dizziness Offers no other complaints Review of Systems Review of Systems: All systems reviewed & are unremarkable except as noted in HPI & below Physical Exam Physical Exam: Physical Exam: Vitals signs as noted above General Appearance:Thin, no apparent distress Head: normocephalic, Atraumatic Eyes: normal inspection, EOMI Neck: supple, Trachea midline Respiratory/Chest: Normal breath sounds, CTA, No accessory muscle use Cardiovascular: S1, S2, No murmur Abdomen/GI:Soft, Mild RLQ tender, Bowel sounds present Extremities/Musculoskelatal:normal inspection, B/L LE edema Neurologic/Psych:AAOX3, grossly no focal neurological deficits Skin: normal color, warm Results & Data Results & Data ([facility]) Vital Signs (Past 12 Hours) Vital Signs Temp Pulse Pulse Resp BP Pulse Ox 10/02/20 17:36 92 H 10/02/20 16:15 36.8 C 73 20 104/66 96 10/02/20 12:30 36.8 C 70 20 100/57 L 97 10/02/20 07:48 36.5 C 61 18 109/69 94 Laboratory Results Short CBC 10/02/20 Range/Units 07:44 WBC 6.93 (4.8-10.8) K/uL Hgb 8.6 L (12.0-16.0) g/dL Hct 26.4 L (37-47) % Plt Count 433 H (130-400) K/uL BMP 10/02/20 07:44 Sodium 145 Potassium 3.7 D Chloride 115 H Carbon Dioxide 25 BUN 13 Creatinine 0.70 Glucose 75 Calcium 7.4 L Liver Function 10/02/20 Range/Units 07:44 Total Bilirubin 0.4 (0.2-1) mg/dl AST 8 L (15-37) U/L ALT 9 L (12-78) U/L Alkaline Phosphatase 72 (45-117) U/L Albumin 1.6 L (3.4-5.0) gm/dl (1) Anemia Anemia type: unspecified type Qualified Code(s): D64.9 - Anemia, unspecified (2) Hypotension Hypotension type: unspecified hypotension type Qualified Code(s): I95.9 - Hypotension, unspecified
[2020-10-02] MEDS: AMITRIPTYLINE HCL 25 MG TAB PO SCH (20:21)
[2020-10-02] MEDS: TAMSULOSIN HCL 0.4 MG CAP PO SCH (20:21)
[2020-10-02] MEDS: HYDROCODONE/ACETAMOPHEN 5/325MG TAB PO PRN (21:44)
[2020-10-02] MEDS: cefTRIAXone SODIUM 1,000 MG in DEXTROSE 5% 50 ML IV SCH (21:44)
[2020-10-03] MEDS: SUCRALFATE 1 GM/10 ML UDC PO SCH ×5 (00:13→23:09)
[2020-10-03 07:02] LABS: Hematocrit (blood only) 26.5 % (37-47); Hemoglobin 8.4 g/dL (12.0-16.0)
[2020-10-03 07:24] LABS: BUN Creatinine Ratio 15.3 (10-20); Calcium 7.8 mg/dl (8.5-10.1); Creatinine Clr Calc Pharmacy 66.1 ml/min; Est GFR (African American) 114.8; Est GFR (Non-African American) 99.1; Potassium 4.1 mmol/L (3.5-5.1)
--- NOTE | 2020-10-03 07:30 | Electrocardiogram Report ---
Test Reason : Blood Pressure : / mmHG Vent. Rate : 083 BPM Atrial Rate : 083 BPM P-R Int : 138 ms QRS Dur : 080 ms QT Int : 366 ms P-R-T Axes : 052 -03 002 degrees QTc Int : 430 ms Normal sinus rhythm Low voltage QRS Nonspecific T wave abnormality Abnormal ECG When compared with ECG of 01-OCT-2020 14:21, Vent. rate has increased BY 29 BPM Inverted T waves have replaced nonspecific T wave abnormality in Inferior leads Nonspecific T wave abnormality now evident in Lateral leads Confirmed by Isaias José ([id number]) on 10/03/2020 7:29:58 AM Referred By: Evelyn Forbes Confirmed By:Isaias José
[2020-10-03] MEDS: traMADol HCL 50 MG TABLET PO PRN (08:09)
[2020-10-03] MEDS: OMEGA-3 (PURIFIED FISH OIL) 1 GM CAP PO SCH (08:10)
[2020-10-03] MEDS: LACTOBACILLUS ACIDOPHILUS 1 GM PACK PO SCH ×3 (08:10→17:01)
[2020-10-03] MEDS: NICOTINE 14 MG/24 HR PATCH TD SCH (08:10)
[2020-10-03] MEDS: MAGNESIUM OXIDE 400 MG TAB PO SCH ×2 (08:10→20:26)
[2020-10-03] MEDS: DULoxetine HCL 30 MG CAP PO SCH ×2 (08:10→20:26)
[2020-10-03] MEDS: GABAPENTIN 300 MG CAP PO SCH ×3 (08:10→20:26)
[2020-10-03] MEDS: CALCIUM CARBONATE 1250MG TAB PO SCH (08:10)
[2020-10-03] MEDS: LIDOCAINE 5% 1 PATCH TD SCH (08:11)
[2020-10-03] MEDS ORDERED: LACTOBACILLUS ACIDOPHILUS 1 GM PACK PO SCH (12:00)
[2020-10-03] MEDS: MULTIVITAMIN TAB PO SCH (12:04)
--- NOTE | 2020-10-03 18:32 | Hospitalist Progress Note ---
Date of Service October 03, 2020 Assessment & Plan (1) Anemia: (2) Hypotension: (3) Hypomagnesemia: (4) Hypokalemia: Patient is a 55 yr female with H/O Gastric bypass, mild protein calorie malnutrition, siddhartha deficiency, b12 def, scoliosis, chronic pain syndrome, idiopathic peripheral neuropathy, depression, hyperparathyroidism, PFO Who presents to ED 2/2 to referred by PCP 2/2 to hypotension with SBP in 70s. Hypotension Anemia Likely secondary to GI loses/Dehydration--nausea, vomiting, diarrhea R/O infection Blood culture no growth to date Urine culture: Mixed ravindra Empirically on Rocephin Received IV fluids Stool studies pending Tolerates regular diet BP Stable Right ureteral stent pain S/P lithotripsy, stone basket extraction, ureteral dilatation and right stent placement by Dr. Farias on September 21 KUB showed unchanged positioning of the stent Continue conservative management Appreciate urology input Needs follow-up with urology upon discharge Hypokalemia, hypomagnesemia, hyperchloremia Secondary to GI loses Replace electrolytes as needed Chronic diarrhea Stool studies pending Stool for C. difficile negative Planned for colonoscopy as outpatient per patient Recent UTI - E.coli Repeat urine culture: Mixed ravindra On Rocephin empirically Acute on Chronic Anemia Likely multifactorial Possible Acute blood loss anemia in setting of hematuria Iron panel, vitamin B12, folate levels not contributory fecal occult: Negative S/P 1 unit PRBCs Malabsorption from gastric bypass contributing as well Monitor H&H and transfuse PRBCs as able Chronic abdominal pain continue bentyl, carafate follows GI: Planned for EGD/Colonoscopy 10/08 H/O Gastric bypass continue b12 injections Protein calorie malnutrition 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 Consultant 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 Appreciate management Chronic pain H/O Migraines Neuropathy Follows with pain management Depression/Anxiety mood stable continue amitriptyline, duloxetine Hyperparathyroidism continue calcitriol Tobacco abuse 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 Nicotine patch Code Status FULL CODE DVT Px: SCDs Admission and Anticipated Discharge Date Admission Date: October 01, 2020 Subjective Patient is seen and examined at bedside Persistent right lower quadrant pain No distress on exam Has Chronic diarrhea Denies chest pain, dyspnea, dizziness Offers no other complaints Review of Systems Review of Systems: All systems reviewed & are unremarkable except as noted in HPI & below Physical Exam Physical Exam: Physical Exam: Vitals signs as noted above General Appearance:Thin, no apparent distress Head: normocephalic, Atraumatic Eyes: normal inspection, EOMI Neck: supple, Trachea midline Respiratory/Chest: Normal breath sounds, CTA, No accessory muscle use Cardiovascular: S1, S2, No murmur Abdomen/GI:Soft, Mild RLQ tender, Bowel sounds present Extremities/Musculoskelatal:normal inspection, B/L LE edema Neurologic/Psych:AAOX3, grossly no focal neurological deficits Skin: normal color, warm Results & Data Results & Data ([facility]) Vital Signs (Past 12 Hours) Vital Signs Temp Pulse Pulse Resp BP Pulse Ox 10/03/20 15:04 36.9 C 81 20 117/74 97 10/03/20 14:50 74 10/03/20 11:54 36.9 C 69 20 113/73 93 10/03/20 07:27 36.7 C 72 18 127/76 90 10/03/20 07:00 71 Laboratory Results Short CBC 10/03/20 Range/Units 06:39 Hgb 8.4 L (12.0-16.0) g/dL Hct 26.5 L (37-47) % BMP 10/03/20 06:39 Sodium 145 Potassium 4.1 Chloride 116 H Carbon Dioxide 26 BUN 10 Creatinine 0.64 Glucose 82 Calcium 7.8 L (1) Anemia Anemia type: unspecified type Qualified Code(s): D64.9 - Anemia, unspecified (2) Hypotension Hypotension type: unspecified hypotension type Qualified Code(s): I95.9 - Hypotension, unspecified
[2020-10-03] MEDS: AMITRIPTYLINE HCL 25 MG TAB PO SCH (20:25)
[2020-10-03] MEDS: TAMSULOSIN HCL 0.4 MG CAP PO SCH (20:26)
[2020-10-03] MEDS: cefTRIAXone SODIUM 1,000 MG in DEXTROSE 5% 50 ML IV SCH (21:36)
[2020-10-04] MEDS: SUCRALFATE 1 GM/10 ML UDC PO SCH ×3 (05:15→16:57)
[2020-10-04] MEDS: LACTOBACILLUS ACIDOPHILUS 1 GM PACK PO SCH ×3 (07:48→16:58)
[2020-10-04] MEDS: OMEGA-3 (PURIFIED FISH OIL) 1 GM CAP PO SCH (07:48)
[2020-10-04] MEDS: CALCIUM CARBONATE 1250MG TAB PO SCH (07:48)
[2020-10-04] MEDS: MAGNESIUM OXIDE 400 MG TAB PO SCH ×2 (07:49→21:07)
[2020-10-04] MEDS: GABAPENTIN 300 MG CAP PO SCH ×3 (07:49→21:07)
[2020-10-04 07:50] LABS: Hematocrit (blood only) 29.3 % (37-47); Hemoglobin 9.6 g/dL (12.0-16.0)
[2020-10-04] MEDS: MULTIVITAMIN TAB PO SCH (07:50)
[2020-10-04] MEDS: DULoxetine HCL 30 MG CAP PO SCH ×2 (07:50→21:08)
[2020-10-04] MEDS: NICOTINE 14 MG/24 HR PATCH TD SCH (07:54)
[2020-10-04] MEDS: LIDOCAINE 5% 1 PATCH TD SCH (07:54)
[2020-10-04 08:22] LABS: BUN Creatinine Ratio 13.9 (10-20); Creatinine Clr Calc Pharmacy 63.2 ml/min; Est GFR (African American) 113.1; Est GFR (Non-African American) 97.6; Potassium 3.9 mmol/L (3.5-5.1)
--- NOTE | 2020-10-04 13:38 | Hospitalist Progress Note ---
Date of Service October 04, 2020 Assessment & Plan (1) Anemia: (2) Hypotension: (3) Hypomagnesemia: (4) Hypokalemia: Patient is a 55 yr female with H/O Gastric bypass, mild protein calorie malnutrition, siddhartha deficiency, b12 def, scoliosis, chronic pain syndrome, idiopathic peripheral neuropathy, depression, hyperparathyroidism, PFO Who presents to ED 2/2 to referred by PCP 2/2 to hypotension with SBP in 70s. Hypotension Anemia Likely secondary to GI loses/Dehydration--nausea, vomiting, diarrhea R/O infection Blood culture no growth to date Urine culture: Mixed ravindra Empirically on Rocephin Received IV fluids Stool studies pending Tolerates regular diet BP Stable off IV fluids Right ureteral stent pain S/P lithotripsy, stone basket extraction, ureteral dilatation and right stent placement by Dr. Farias on September 21 KUB showed unchanged positioning of the stent Continue conservative management Appreciate urology input Needs follow-up with urology upon discharge Hypokalemia, hypomagnesemia, hyperchloremia Secondary to GI loses Replace electrolytes as needed Chronic diarrhea Stool studies negative Stool for C. 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 contributing as well Monitor H&H and transfuse PRBCs as able Hb:9.6 today Chronic abdominal pain continue bentyl, carafate follows GI: Planned for EGD/Colonoscopy 10/08 H/O Gastric bypass continue b12 injections Protein calorie malnutrition 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 Appreciate management Chronic pain H/O Migraines Neuropathy Follows with pain management Depression/Anxiety mood stable continue amitriptyline, duloxetine Hyperparathyroidism continue calcitriol Tobacco abuse 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 Nicotine patch Code Status FULL CODE DVT Px: SCDs Admission and Anticipated Discharge Date Admission Date: October 01, 2020 Subjective Patient is seen and examined at bedside No new complaints Has Chronic diarrhea Denies chest pain, dyspnea, dizziness Hb stable Review of Systems Review of Systems: All systems reviewed & are unremarkable except as noted in HPI & below Physical Exam Physical Exam: Physical Exam: Vitals signs as noted above General Appearance:Thin, no apparent distress Head: normocephalic, Atraumatic Eyes: normal inspection, EOMI Neck: supple, Trachea midline Respiratory/Chest: Normal breath sounds, CTA, No accessory muscle use Cardiovascular: S1, S2, No murmur Abdomen/GI:Soft, non tender, Bowel sounds present Extremities/Musculoskeletal:normal inspection, B/L LE edema Neurologic/Psych:AAOX3, grossly no focal neurological deficits Skin: normal color, warm Results & Data Results & Data ([facility]) Vital Signs (Past 12 Hours) Vital Signs Temp Pulse Pulse Pulse Resp BP BP 10/04/20 10:00 36.7 C 82 18 129/70 10/04/20 07:00 36.9 C 94 H 95 H 18 108/69 Pulse Ox 10/04/20 10:00 92 10/04/20 07:00 93 Laboratory Results Short CBC 10/04/20 Range/Units 07:32 Hgb 9.6 L (12.0-16.0) g/dL Hct 29.3 L (37-47) % BMP 10/04/20 07:32 Sodium 142 Potassium 3.9 Chloride 110 H Carbon Dioxide 28 BUN 9 Creatinine 0.67 Glucose 76 Calcium 8.0 L (1) Anemia Anemia type: unspecified type Qualified Code(s): D64.9 - Anemia, unspecified (2) Hypotension Hypotension type: unspecified hypotension type Qualified Code(s): I95.9 - Hypotension, unspecified
--- NOTE | 2020-10-04 13:46 | Discharge Summary ---
Date of Service October 04, 2020 Admission HPI Per Admitting Provider This is a 55-year-old female who has significant past medical history of gastric bypass, mild protein calorie malnutrition, siddhartha deficiency, b12 def, scoliosis, chronic pain syndrome, idiopathic peripheral neuropathy, depression, hyperparathyroidism, PFO Who presents to ED 07/28 to referred by PCP 22 to hypotension with SBP in 70s. Of significance patient recently hospitalized 09/15 to 09/24/2020 secondary to hypotension while in pain clinic. Initially hypotension in setting of diarrhea and malabsorption. She had severe electrolyte abnormalities including hypokalemia hypocalcemia hypomagnesemia and hyperchloremia. These were replaced. She was also found to have E. coli UTI and right ureteral stone causing hydronephrosis and mild ROBINSON. She underwent cystoscopy and stent placement. She continues to have stent in place. She was doing well initially post discharge for 2 days; however pain has returned to RUQ and continues to have hematuria. Pain radiates down to R groin and R back. She notes gross blood in urine. Complains of nausea, decreased appetite, and emesis. She also has diarrhea but that's not abnormal for her. She denies melena or hematochezia. She went for hospital follow up today. Her SBP was in 70s and was also that yesterday. Normally her BP is 90s/70s. Yesterday she was extremely dizzy and sbp in 70s. She was able to work but felt unwell. Complains of dysuria, increased urinary freq but denies F/C/S. She admits to hx of transfusion in past, many years ago. In ED pt was initially hypotensive but this improved with IVF. Lab abd including hgb 7.6, hct 23.7, plt 448, K, 2.6, Chloride 112, corrected ca8.7, mag 1.3. CXR revealed no acute findings. She did receive some potassium supplementation. Principal Diagnosis Hypotension Anemia Right ureteral stent pain Hypokalemia Hypomagnesemia Hyperchloremia Anemia Discharge Data Allergies Allergy/AdvReac Type Severity Reaction Status Date / Time Penicillins Allergy Unknown ? REACTION Verified 10/01/20 14:38 Sulfa (Sulfonamide Allergy Unknown Unknown Verified 10/01/20 14:38 Antibiotics) reaction aspirin AdvReac Mild No an Verified 10/01/20 14:38 allergy- cannot take post-bypass surgery ragweed pollen AdvReac Mild swelling Verified 10/01/20 14:38 Consultations 10/01/20 18:02 ED Decision to Admit Stat 10/01/20 20:28 Consult Urology Routine Ordered Studies 10/01/20 20:02 US venous doppler LE BI Routine US venous doppler UE LT Routine Hospital Course (1) Anemia: (2) Hypotension: (3) Hypomagnesemia: (4) Hypokalemia: Patient is a 55 yr female with H/O Gastric bypass, mild protein calorie malnutrition, siddhartha deficiency, b12 def, scoliosis, chronic pain syndrome, idiopathic peripheral neuropathy, depression, hyperparathyroidism, PFO Who presents to ED 2/2 to referred by PCP 2/2 to hypotension with SBP in 70s. Hypotension Anemia Likely secondary to GI loses/Dehydration--nausea, vomiting, diarrhea R/O infection Blood culture no growth to date Urine culture: Mixed ravindra Empirically on Rocephin Received IV fluids Stool studies pending Tolerates regular diet BP Stable off IV fluids Right ureteral stent pain S/P lithotripsy, stone basket extraction, ureteral dilatation and right stent placement by Dr. Farias on September 21 KUB showed unchanged positioning of the stent Continue conservative management Appreciate urology input Needs follow-up with urology upon discharge Hypokalemia, hypomagnesemia, hyperchloremia Secondary to GI loses Replace electrolytes as needed Chronic diarrhea Stool studies negative Stool for C. 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 contributing as well Monitor H&H and transfuse PRBCs as able Hb:9.6 today Chronic abdominal pain continue bentyl, carafate follows GI: Planned for EGD/Colonoscopy 10/08 H/O Gastric bypass continue b12 injections Protein calorie malnutrition Distribution Center Assistant consulted Appreciate management Chronic pain H/O Migraines Neuropathy Follows with pain management Depression/Anxiety mood stable continue amitriptyline, duloxetine Hyperparathyroidism continue calcitriol Tobacco abuse 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 Nicotine patch Code Status FULL CODE DVT Px: SCDs Discharge Plan Discharge Items Patient Disposition: Home - Self-Care Reason For Visit: HYPONTENSION, ANEMIA, HYPOKALEMIA Discharge Diagnosis: Hypotension Anemia Right ureteral stent pain Hypokalemia Hypomagnesemia Hyperchloremia Anemia Condition on Discharge: Fair Activity: Per Instructions section Exercise/Sports: Gradually increase as tolerated Non-emergency contact: Primary Care Provider and Urologist Call non-emergency contact if: you have any medication questions, your symptoms worsen, your pain is concerning for you and you have a fever Follow-up/Referrals: Evelyn Andrews MD [Primary Care Provider] - Diet: Regular Addtl Attending Provider Instructions: Follow-up with your primary care physician Dr. Obdulio Forbes in 1 week Follow-up with your Urologist as scheduled Seek immediate medical attention if your symptoms reoccur or worsen Pending Studies at Discharge: No Stand-Alone Forms: My [employer], Smoking Cessation Medications and DC Order Prescriptions: New multivitamin [Daily-Larissa] Tablet 1 tab PO QAM Qty: 30 RF: 3 Continued amitriptyline 25 mg tablet 25 mg PO HS RF: 0 rizatriptan 10 mg tablet 10 mg PO DAILY PRN (Reason: Migraines) RF: 0 fremanezumab-vfrm 225 mg/1.5 mL syringe 225 mg SQ MONTHLY RF: 0 omega-3 fatty acids 1,000 mg capsule 1,000 mg PO QAM RF: 0 ondansetron HCl [Zofran] 4 mg tablet 4 mg PO Q8H PRN (Reason: nausea and vomiting) RF: 0 tramadol 50 mg Tablet 50 mg PO Q8H PRN (Reason: Pain) Qty: 0 RF: 0 ergocalciferol (vitamin D2) 50,000 unit Capsule 50,000 unit PO WK Qty: 0 RF: 0 cyanocobalamin (vitamin B-12) 1,000 mcg/mL Solution 1 dose IM MONTHLY Qty: 0 RF: 0 diphenoxylate-atropine [Lomotil] 2.5-0.025 mg Tablet 1 tab PO QID PRN (Reason: Diarrhea) Qty: 0 RF: 0 gabapentin [Neurontin] 100 mg capsule 300 mg PO TID Qty: 0 RF: 0 hydrocodone-acetaminophen 5-325 mg tablet 1 tab PO DAILY PRN (Reason: Severe Pain (Scale Score 7-10)) RF: 0 calcitriol 0.25 mcg Capsule 0.25 mcg PO MOWEFR RF: 0 acetaminophen 500 mg tablet 500 mg PO Q4H PRN (Reason: Pain) RF: 0 dicyclomine 20 mg Tablet 20 mg PO TID PRN (Reason: Muscle Spasm) Qty: 90 RF: 0 sucralfate [Carafate] 100 mg/mL suspension 1 g PO Q6H 28 Days Qty: 1120 RF: 3 gcnvcsqzdq-uvjgejsaddnmu-zkvg 50-325-40 mg tablet 1 tab PO Q6H PRN (Reason: Pain) RF: 0 alprazolam 0.25 mg tablet 0.25 mg PO DAILY PRN (Reason: Anxiety) RF: 0 calcium carbonate [Oysco-500] 500 mg calcium (1,250 mg) tablet 1,000 mg PO DAILY RF: 0 duloxetine 30 mg capsule,delayed release(DR/EC) 30 mg PO BID RF: 0 phenazopyridine [Pyridium] 200 mg Tablet 200 mg PO TID Qty: 10 RF: 0 tamsulosin 0.4 mg Capsule 0.4 mg PO HS Qty: 10 RF: 0 lidocaine 5 % Adhesive Patch,Medicated 1 patch transdermal QAM Qty: 14 RF: 0 oxybutynin chloride 5 mg Tablet 5 mg PO BID PRN (Reason: bladder spasms) Qty: 20 RF: 0 Floranex 100 million cell Granules In Packet 1 g PO TIDM Qty: 30 RF: 0 magnesium oxide 400 mg (241.3 mg magnesium) Tablet 400 mg PO BID Qty: 10 RF: 0 Discharge Orders: Discharge Order (Routine); Ordered 10/04/20 Ordered By: Gallo Sandvoal Admission Data Admit Date/Time: 10/01/20 18:14 Attending Provider: Gallo Sandoval Admit Provider: Gallo Sandoval Primary Care Provider: Evelyn Andrews Other Providers: Gallo Sandoval ; Isaias Salcido
--- NOTE | 2020-10-04 14:28 | Discharge Summary ---
Date of Service October 04, 2020 Principal Diagnosis Hypotension Anemia Right ureteral stent pain Hypokalemia Hypomagnesemia Hyperchloremia Anemia Discharge Data Allergies Allergy/AdvReac Type Severity Reaction Status Date / Time Penicillins Allergy Unknown ? REACTION Verified 10/01/20 14:38 Sulfa (Sulfonamide Allergy Unknown Unknown Verified 10/01/20 14:38 Antibiotics) reaction aspirin AdvReac Mild No an Verified 10/01/20 14:38 allergy- cannot take post-bypass surgery ragweed pollen AdvReac Mild swelling Verified 10/01/20 14:38 Consultations 10/01/20 18:02 ED Decision to Admit Stat 10/01/20 20:28 Consult Urology Routine Ordered Studies 10/01/20 20:02 US venous doppler LE BI Routine US venous doppler UE LT Routine Hospital Course (1) Anemia: (2) Hypotension: (3) Hypomagnesemia: (4) Hypokalemia: Patient is a 55 yr female with H/O Gastric bypass, mild protein calorie malnutrition, siddhartha deficiency, b12 def, scoliosis, chronic pain syndrome, idiopathic peripheral neuropathy, depression, hyperparathyroidism, PFO Who presents to ED 2/2 to referred by PCP 2/2 to hypotension with SBP in 70s. Hypotension Anemia Likely secondary to GI loses/Dehydration--nausea, vomiting, diarrhea R/O infection Blood culture no growth to date Urine culture: Mixed ravindra Empirically on Rocephin Received IV fluids Stool studies pending Tolerates regular diet BP Stable off IV fluids Right ureteral stent pain S/P lithotripsy, stone basket extraction, ureteral dilatation and right stent placement by Dr. Farias on September 21 KUB showed unchanged positioning of the stent Continue conservative management Appreciate urology input Needs follow-up with urology upon discharge Hypokalemia, hypomagnesemia, hyperchloremia Secondary to GI loses Replace electrolytes as needed Chronic diarrhea Stool studies negative Stool for C. 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 contributing as well Monitor H&H and transfuse PRBCs as able Hb:9.6 today Chronic abdominal pain continue bentyl, carafate follows GI: Planned for EGD/Colonoscopy 10/08 H/O Gastric bypass continue b12 injections Protein calorie malnutrition Alpine Patroller consulted Appreciate management Chronic pain H/O Migraines Neuropathy Follows with pain management Depression/Anxiety mood stable continue amitriptyline, duloxetine Hyperparathyroidism continue calcitriol Tobacco abuse 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 cessation Nicotine patch Code Status FULL CODE DVT Px: SCDs Disposition Refuses Rehab Prefers Home with Home Health Discharge Plan Discharge Items Patient Disposition: Home - Home Health Services Reason For Visit: HYPONTENSION, ANEMIA, HYPOKALEMIA Discharge Diagnosis: Hypotension Anemia Right ureteral stent pain Hypokalemia Hypomagnesemia Hyperchloremia Anemia Condition on Discharge: Fair Activity: Per Instructions section Exercise/Sports: Gradually increase as tolerated Non-emergency contact: Primary Care Provider and Urologist Call non-emergency contact if: you have any medication questions, your symptoms worsen, your pain is concerning for you and you have a fever Follow-up/Referrals: Evelyn Andrews MD [Primary Care Provider] - Diet: Regular Addtl Attending Provider Instructions: Follow-up with your primary care physician Dr. Obdulio Forbes in 1 week Follow-up with your Urologist as scheduled Seek immediate medical attention if your symptoms reoccur or worsen Pending Studies at Discharge: No Stand-Alone Forms: My [employer], Smoking Cessation Medications and DC Order Prescriptions: New multivitamin [Daily-Larissa] Tablet 1 tab PO QAM Qty: 30 RF: 3 Continued amitriptyline 25 mg tablet 25 mg PO HS RF: 0 rizatriptan 10 mg tablet 10 mg PO DAILY PRN (Reason: Migraines) RF: 0 fremanezumab-vfrm 225 mg/1.5 mL syringe 225 mg SQ MONTHLY RF: 0 omega-3 fatty acids 1,000 mg capsule 1,000 mg PO QAM RF: 0 ondansetron HCl [Zofran] 4 mg tablet 4 mg PO Q8H PRN (Reason: nausea and vomiting) RF: 0 tramadol 50 mg Tablet 50 mg PO Q8H PRN (Reason: Pain) Qty: 0 RF: 0 ergocalciferol (vitamin D2) 50,000 unit Capsule 50,000 unit PO WK Qty: 0 RF: 0 cyanocobalamin (vitamin B-12) 1,000 mcg/mL Solution 1 dose IM MONTHLY Qty: 0 RF: 0 diphenoxylate-atropine [Lomotil] 2.5-0.025 mg Tablet 1 tab PO QID PRN (Reason: Diarrhea) Qty: 0 RF: 0 gabapentin [Neurontin] 100 mg capsule 300 mg PO TID Qty: 0 RF: 0 hydrocodone-acetaminophen 5-325 mg tablet 1 tab PO DAILY PRN (Reason: Severe Pain (Scale Score 7-10)) RF: 0 calcitriol 0.25 mcg Capsule 0.25 mcg PO MOWEFR RF: 0 acetaminophen 500 mg tablet 500 mg PO Q4H PRN (Reason: Pain) RF: 0 dicyclomine 20 mg Tablet 20 mg PO TID PRN (Reason: Muscle Spasm) Qty: 90 RF: 0 sucralfate [Carafate] 100 mg/mL suspension 1 g PO Q6H 28 Days Qty: 1120 RF: 3 turhcdzjwo-wjzbsrjfqierf-visc 50-325-40 mg tablet 1 tab PO Q6H PRN (Reason: Pain) RF: 0 alprazolam 0.25 mg tablet 0.25 mg PO DAILY PRN (Reason: Anxiety) RF: 0 calcium carbonate [Oysco-500] 500 mg calcium (1,250 mg) tablet 1,000 mg PO DAILY RF: 0 duloxetine 30 mg capsule,delayed release(DR/EC) 30 mg PO BID RF: 0 phenazopyridine [Pyridium] 200 mg Tablet 200 mg PO TID Qty: 10 RF: 0 tamsulosin 0.4 mg Capsule 0.4 mg PO HS Qty: 10 RF: 0 lidocaine 5 % Adhesive Patch,Medicated 1 patch transdermal QAM Qty: 14 RF: 0 oxybutynin chloride 5 mg Tablet 5 mg PO BID PRN (Reason: bladder spasms) Qty: 20 RF: 0 Floranex 100 million cell Granules In Packet 1 g PO TIDM Qty: 30 RF: 0 magnesium oxide 400 mg (241.3 mg magnesium) Tablet 400 mg PO BID Qty: 10 RF: 0 Discharge Orders: Discharge Order (Routine); Ordered 10/04/20 Ordered By: Gallo Sandoval Admission Data Admit Date/Time: 10/01/20 18:14 Attending Provider: Gallo Sandoval Admit Provider: Gallo Sandoval Primary Care Provider: Evelyn Andrews Other Providers: Gallo Sandoval ; Isaias Salcido
[2020-10-04] MEDS: traMADol HCL 50 MG TABLET PO PRN (15:10)
[2020-10-04] MEDS: AMITRIPTYLINE HCL 25 MG TAB PO SCH (21:07)
[2020-10-04] MEDS: TAMSULOSIN HCL 0.4 MG CAP PO SCH (21:07)
[2020-10-05] MEDS: SUCRALFATE 1 GM/10 ML UDC PO SCH ×2 (00:13→06:13)
[2020-10-05 07:45] LABS: Hematocrit (blood only) 26.1 % (37-47); Hemoglobin 8.4 g/dL (12.0-16.0)
[2020-10-05] MEDS: NICOTINE 14 MG/24 HR PATCH TD SCH (08:10)
[2020-10-05] MEDS: LIDOCAINE 5% 1 PATCH TD SCH (08:11)
[2020-10-05] MEDS: OMEGA-3 (PURIFIED FISH OIL) 1 GM CAP PO SCH (08:12)
[2020-10-05] MEDS: LACTOBACILLUS ACIDOPHILUS 1 GM PACK PO SCH (08:12)
[2020-10-05] MEDS: GABAPENTIN 300 MG CAP PO SCH (08:12)
[2020-10-05] MEDS: DULoxetine HCL 30 MG CAP PO SCH (08:12)
[2020-10-05] MEDS: CALCIUM CARBONATE 1250MG TAB PO SCH (08:13)
[2020-10-05] MEDS: CALCITRIOL 0.25 MCG CAPSULE PO SCH (08:13)
[2020-10-05] MEDS: MAGNESIUM OXIDE 400 MG TAB PO SCH (08:13)
[2020-10-05] MEDS: MULTIVITAMIN TAB PO SCH (08:14)
--- NOTE | 2020-10-05 08:23 | Hospitalist Progress Note ---
Date of Service October 05, 2020 Assessment & Plan (1) Anemia: (2) Hypotension: (3) Hypomagnesemia: (4) Hypokalemia: Patient is a 55 yr female with H/O Gastric bypass, mild protein calorie malnutrition, siddhartha deficiency, b12 def, scoliosis, chronic pain syndrome, idiopathic peripheral neuropathy, depression, hyperparathyroidism, PFO Who presents to ED 2/2 to referred by PCP 2/2 to hypotension with SBP in 70s. Hypotension Anemia Likely secondary to GI loses/Dehydration--nausea, vomiting, diarrhea R/O infection Blood culture no growth to date Urine culture: Mixed ravindra Empirical Rocephin discontinued Received IV fluids Stool studies negative Tolerates regular diet BP Stable off IV fluids Right ureteral stent pain S/P lithotripsy, stone basket extraction, ureteral dilatation and right stent placement by Dr. Farias on September 21 KUB showed unchanged positioning of the stent Continue conservative management Appreciate urology input Needs follow-up with urology upon discharge Stent pain much improved Hypokalemia, hypomagnesemia, hyperchloremia Secondary to GI loses Replace electrolytes as needed Chronic diarrhea Stool studies negative Stool for C. 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 contributing as well Monitor H&H and transfuse PRBCs as able Hb stable Chronic abdominal pain continue bentyl, carafate follows GI: Planned for EGD/Colonoscopy 10/08 H/O Gastric bypass continue b12 injections Protein calorie malnutrition 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 Appreciate management Chronic pain H/O Migraines Neuropathy Follows with pain management Denies abusing home meds Depression/Anxiety mood stable continue amitriptyline, duloxetine Discussed with Psychiatry--Doesn't meet criteria for inpatient and competent to make own decisions Patient denies abusing home meds Patient not willing to stay till Psychiatry MD evaluates as she is moving and eager to get discharged Advised to follow up with Psychiatry as outpatient--Patient agrees to follow as outpatient Hyperparathyroidism continue calcitriol Tobacco abuse 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 Nicotine patch Code Status FULL CODE DVT Px: SCDs Disposition Refuses Rehab Prefers Home with Home Health Admission and Anticipated Discharge Date Admission Date: October 01, 2020 Subjective Patient is seen and examined at bedside Denies having hallucinations, suicidal thoughts today Denies abusing home meds Abd discomfort is much improved Discussed with Psychiatry today Reports chronic headache Denies chest pain, dyspnea, dizziness, nausea Review of Systems Review of Systems: All systems reviewed & are unremarkable except as noted in HPI & below Physical Exam Physical Exam: Physical Exam: Vitals signs as noted above General Appearance:Thin, no apparent distress Head: normocephalic, Atraumatic Eyes: normal inspection, EOMI Neck: supple, Trachea midline Respiratory/Chest: Normal breath sounds, CTA, No accessory muscle use Cardiovascular: S1, S2, No murmur Abdomen/GI:Soft, non tender, Bowel sounds present Extremities/Musculoskeletal:normal inspection, B/L LE edema Neurologic/Psych:AAOX3, grossly no focal neurological deficits Skin: normal color, warm Results & Data Results & Data ([facility]) Vital Signs (Past 12 Hours) Vital Signs Temp Pulse Pulse Resp BP BP Pulse Ox 10/05/20 07:25 36.6 C 60 16 113/71 97 10/05/20 04:07 36.7 C 72 20 101/67 97 10/04/20 23:00 36.8 C 92 H 20 133/77 94 10/04/20 22:20 89 Laboratory Results Short CBC 10/05/20 Range/Units 07:20 Hgb 8.4 L (12.0-16.0) g/dL Hct 26.1 L (37-47) % BMP 10/04/20 07:32 Sodium 142 Potassium 3.9 Chloride 110 H Carbon Dioxide 28 BUN 9 Creatinine 0.67 Glucose 76 Calcium 8.0 L (1) Anemia Anemia type: unspecified type Qualified Code(s): D64.9 - Anemia, unspecified (2) Hypotension Hypotension type: unspecified hypotension type Qualified Code(s): I95.9 - Hypotension, unspecified
[2020-10-05 08:26] LABS: BUN Creatinine Ratio 24.7 (10-20); Calcium 7.8 mg/dl (8.5-10.1); Creatinine Clr Calc Pharmacy 70.6 ml/min; Est GFR (African American) 117.3; Est GFR (Non-African American) 101.2; Potassium 3.5 mmol/L (3.5-5.1)
--- NOTE | 2020-10-05 08:36 | Discharge Summary ---
Date of Service October 05, 2020 Admission HPI Per Admitting Provider Chief Complaint: Referred by PCP 2/2 to hypotension with SBP in 70s. Primary Care Provider: Evelyn Forbes MD This is a 55-year-old female who has significant past medical history of gastric bypass, mild protein calorie malnutrition, siddhartha deficiency, b12 def, scoliosis, chronic pain syndrome, idiopathic peripheral neuropathy, depression, hyperparathyroidism, PFO Who presents to ED /2 to referred by PCP 2/2 to hypotension with SBP in 70s. Of significance patient recently hospitalized 09/15 to 09/24/2020 secondary to hypotension while in pain clinic. Initially hypotension in setting of diarrhea and malabsorption. She had severe electrolyte abnormalities including hypokalemia hypocalcemia hypomagnesemia and hyperchloremia. These were replaced. She was also found to have E. coli UTI and right ureteral stone causing hydronephrosis and mild ROBINSON. She underwent cystoscopy and stent placement. She continues to have stent in place. She was doing well initially post discharge for 2 days; however pain has returned to RUQ and continues to have hematuria. Pain radiates down to R groin and R back. She notes gross blood in urine. Complains of nausea, decreased appetite, and emesis. She also has diarrhea but that's not abnormal for her. She denies melena or hematochezia. She went for hospital follow up today. Her SBP was in 70s and was also that yesterday. Normally her BP is 90s/70s. Yesterday she was extremely dizzy and sbp in 70s. She was able to work but felt unwell. Complains of dysuria, increased urinary freq but denies F/C/S. She admits to hx of transfusion in past, many years ago. In ED pt was initially hypotensive but this improved with IVF. Lab abd including hgb 7.6, hct 23.7, plt 448, K, 2.6, Chloride 112, corrected ca8.7, mag 1.3. CXR revealed no acute findings. She did receive some potassium supplementation Admission Exam Per Admitting Provider Chief Complaint: Referred by PCP 2/2 to hypotension with SBP in 70s. Primary Care Provider: Evelyn Forbes MD This is a 55-year-old female who has significant past medical history of gastric bypass, mild protein calorie malnutrition, siddhartha deficiency, b12 def, scoliosis, chronic pain syndrome, idiopathic peripheral neuropathy, depression, hyperparathyroidism, PFO Who presents to ED 2/ to referred by PCP 22 to hypotension with SBP in 70s. Of significance patient recently hospitalized 09/15 to 09/24/2020 secondary to hypotension while in pain clinic. Initially hypotension in setting of diarrhea and malabsorption. She had severe e lectrolyte abnormalities including hypokalemia hypocalcemia hypomagnesemia and hyperchloremia. These were replaced. She was also found to have E. coli UTI and right ureteral stone causing hydronephrosis and mild ROBINSON. She underwent cystoscopy and stent placement. She continues to have stent in place. She was doing well initially post discharge for 2 days; however pain has returned to RUQ and continues to have hematuria. Pain radiates down to R groin and R back. She notes gross blood in urine. Complains of nausea, decreased appetite, and emesis. She also has diarrhea but that's not abnormal for her. She denies melena or hematochezia. She went for hospital follow up today. Her SBP was in 70s and was also that yesterday. Normally her BP is 90s/70s. Yesterday she was extremely dizzy and sbp in 70s. She was able to work but felt unwell. Complains of dysuria, increased urinary freq but denies F/C/S. She admits to hx of transfusion in past, many years ago. In ED pt was initially hypotensive but this improved with IVF. Lab abd including hgb 7.6, hct 23.7, plt 448, K, 2.6, Chloride 112, corrected ca8.7, mag 1.3. CXR revealed no acute findings. She did receive some potassium supplementation Principal Diagnosis Hypotension Anemia Right ureteral stent pain Hypokalemia Hypomagnesemia Hyperchloremia Anemia Hallucinations Discharge Data Allergies Allergy/AdvReac Type Severity Reaction Status Date / Time Penicillins Allergy Unknown ? REACTION Verified 10/01/20 14:38 Sulfa (Sulfonamide Allergy Unknown Unknown Verified 10/01/20 14:38 Antibiotics) reaction aspirin AdvReac Mild No an Verified 10/01/20 14:38 allergy- cannot take post-bypass surgery ragweed pollen AdvReac Mild swelling Verified 10/01/20 14:38 Consultations 10/01/20 18:02 ED Decision to Admit Stat 10/01/20 20:28 Consult Urology Routine 10/04/20 15:03 Consult Psychiatry Routine Procedures Performed KUB showed unchanged positioning of the stent Ordered Studies 10/01/20 20:02 US venous doppler LE BI Routine US venous doppler UE LT Routine Hospital Course (1) Anemia: (2) Hypotension: (3) Hypomagnesemia: (4) Hypokalemia: Patient is a 55 yr female with H/O Gastric bypass, mild protein calorie malnutrition, siddhartha deficiency, b12 def, scoliosis, chronic pain syndrome, idiopathic peripheral neuropathy, depression, hyperparathyroidism, PFO Who presents to ED 2/2 to referred by PCP 2/2 to hypotension with SBP in 70s. Hypotension Anemia Likely secondary to GI loses/Dehydration--nausea, vomiting, diarrhea R/O infection Blood culture no growth to date Urine culture: Mixed ravindra Empirical Rocephin discontinued Received IV fluids Stool studies negative Tolerates regular diet BP Stable off IV fluids Right ureteral stent pain S/P lithotripsy, stone basket extraction, ureteral dilatation and right stent placement by Dr. Farias on September 21 KUB showed unchanged positioning of the stent Continue conservative management Appreciate urology input Needs follow-up with urology upon discharge Stent pain much improved Hypokalemia, hypomagnesemia, hyperchloremia Secondary to GI loses Replace electrolytes as needed Chronic diarrhea Stool studies negative Stool for C. 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 contributing as well Monitor H&H and transfuse PRBCs as able Hb stable Chronic abdominal pain continue bentyl, carafate follows GI: Planned for EGD/Colonoscopy 10/08 H/O Gastric bypass continue b12 injections Protein calorie malnutrition Conductor/Brakeman consulted Appreciate management Chronic pain H/O Migraines Neuropathy Follows with pain management Denies abusing home meds Depression/Anxiety mood stable continue amitriptyline, duloxetine Discussed with Psychiatry--Doesn't meet criteria for inpatient and competent to make own decisions Patient denies abusing home meds Patient not willing to stay till Psychiatry MD evaluates as she is moving and eager to get discharged Advised to follow up with Psychiatry as outpatient--Patient agrees to follow as outpatient Hyperparathyroidism continue calcitriol Tobacco abuse Flask Fitter cessation Nicotine patch Code Status FULL CODE DVT Px: SCDs Disposition Refuses Rehab Prefers Home with Home Health I certify that this patient is under my care and that I, or a physicians supply assistant working with me, had a face to-face encounter that meets the home health enpa-ah-ijya encounter requirements with this patient. The encounter with the patient was in whole, or in part, for the following medical condition, which is the primary reason for home health care (list medical condition): I certify that, based on my findings, the following services are medically necessary home health services: My clinical findings support the need for the above services because: Further, I certify that my clinical findings support that this patient is homebound (i.e. absences from home require considerable and taxing effort and are for medical reasons or sabianist services or infrequently or of short duration when for other reasons) because: Certification for Home Health Services: Based on the above findings, I certify that this patient is confined to the home and needs intermittent longterm care, physical therapy and/or speech therapy or continues to need occupational therapy. The patient is under my care, and I have initiated the establishment of the plan of care. This patient will be followed by a physician who will periodically review the plan of care. Total Time Total Time Spent Total Time Spent (In Minutes): 42 minutes Total Time Includes: Examination of the Patient, Discharge Planning, Medication Reconciliation, Communication With Other Providers and Other Discharge Plan Discharge Items Patient Disposition: Home - Self-Care Reason For Visit: HYPONTENSION, ANEMIA, HYPOKALEMIA Discharge Diagnosis: Hypotension Anemia Right ureteral stent pain Hypokalemia Hypomagnesemia Hyperchloremia Anemia Hallucinations Condition on Discharge: Fair Activity: Per Instructions section Exercise/Sports: Gradually increase as tolerated Non-emergency contact: Primary Care Provider and Urologist Call non-emergency contact if: you have any medication questions, your symptoms worsen, your pain is concerning for you and you have a fever Follow-up/Referrals: Evelyn Andrews MD [Primary Care Provider] - (Date & Time 10/09/2020 12:00 PM Provider Anila Hughes MD Department Internal Medicine [facility] ) Diet: Regular Addtl Attending Provider Instructions: Follow-up with your primary care physician Dr. Obdulio Forbes in 1 week Follow-up with your Urologist as scheduled Follow up with your Psychiatrist as advised Seek immediate medical attention if your symptoms reoccur or worsen Pending Studies at Discharge: No Stand-Alone Forms: My [facility] No Paper Just Vapor, Smoking Cessation Medications and DC Order Prescriptions: New multivitamin [Daily-Larissa] Tablet 1 tab PO QAM Qty: 30 RF: 3 Continued amitriptyline 25 mg tablet 25 mg PO HS RF: 0 rizatriptan 10 mg tablet 10 mg PO DAILY PRN (Reason: Migraines) RF: 0 fremanezumab-vfrm 225 mg/1.5 mL syringe 225 mg SQ MONTHLY RF: 0 omega-3 fatty acids 1,000 mg capsule 1,000 mg PO QAM RF: 0 ondansetron HCl [Zofran] 4 mg tablet 4 mg PO Q8H PRN (Reason: nausea and vomiting) RF: 0 tramadol 50 mg Tablet 50 mg PO Q8H PRN (Reason: Pain) Qty: 0 RF: 0 ergocalciferol (vitamin D2) 50,000 unit Capsule 50,000 unit PO WK Qty: 0 RF: 0 cyanocobalamin (vitamin B-12) 1,000 mcg/mL Solution 1 dose IM MONTHLY Qty: 0 RF: 0 diphenoxylate-atropine [Lomotil] 2.5-0.025 mg Tablet 1 tab PO QID PRN (Reason: Diarrhea) Qty: 0 RF: 0 gabapentin [Neurontin] 100 mg capsule 300 mg PO TID Qty: 0 RF: 0 hydrocodone-acetaminophen 5-325 mg tablet 1 tab PO DAILY PRN (Reason: Severe Pain (Scale Score 7-10)) RF: 0 calcitriol 0.25 mcg Capsule 0.25 mcg PO MOWEFR RF: 0 acetaminophen 500 mg tablet 500 mg PO Q4H PRN (Reason: Pain) RF: 0 dicyclomine 20 mg Tablet 20 mg PO TID PRN (Reason: Muscle Spasm) Qty: 90 RF: 0 sucralfate [Carafate] 100 mg/mL suspension 1 g PO Q6H 28 Days Qty: 1120 RF: 3 ardyrnnmfm-cllupfqpmeyer-xcrj 50-325-40 mg tablet 1 tab PO Q6H PRN (Reason: Pain) RF: 0 alprazolam 0.25 mg tablet 0.25 mg PO DAILY PRN (Reason: Anxiety) RF: 0 calcium carbonate [Oysco-500] 500 mg calcium (1,250 mg) tablet 1,000 mg PO DAILY RF: 0 duloxetine 30 mg capsule,delayed release(DR/EC) 30 mg PO BID RF: 0 phenazopyridine [Pyridium] 200 mg Tablet 200 mg PO TID Qty: 10 RF: 0 tamsulosin 0.4 mg Capsule 0.4 mg PO HS Qty: 10 RF: 0 lidocaine 5 % Adhesive Patch,Medicated 1 patch transdermal QAM Qty: 14 RF: 0 oxybutynin chloride 5 mg Tablet 5 mg PO BID PRN (Reason: bladder spasms) Qty: 20 RF: 0 Floranex 100 million cell Granules In Packet 1 g PO TIDM Qty: 30 RF: 0 magnesium oxide 400 mg (241.3 mg magnesium) Tablet 400 mg PO BID Qty: 10 RF: 0 Discharge Orders: Discharge Order (Routine); Ordered 10/05/20 Ordered By: Gallo Sandoval Admission Data Admit Date/Time: 10/01/20 18:14 Attending Provider: Gallo Sandoval Admit Provider: Galol Sandoval Primary Care Provider: Evelyn Andrews Other Providers: Gallo Sandoval ; Isaias Salcido ; Teresa Mckenna Other Interventions: Discharge Summary Assessment (RN) Last Done: 10/05/20 08:48
--- NOTE | 2020-10-05 11:29 | Communication Note ---
Date of Service: October 05, 2020 Consult received and was seen by the psychiatric liaison nurse. Patient was discharged < 24 hours later by the primary attending before she could be seen by a clinician.
== END 2020-10-05 09:30 | disposition home or self-care (01) | DRG 812 ==
LOC: ED 10:52 → 2W 18:14

== ENCOUNTER 2021-09-03 12:38 | Inpatient (IN) ==
[2021-09-03] MEDS ORDERED: SODIUM CHLORIDE 0.9% 500 ML IV ONE ×2 (13:27→15:41)
--- NOTE | 2021-09-03 14:09 | Emergency Department Note ---
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 G-tube pain/problem This was placed 4 months ago with [facility], converted to [facility] 1 month ago for ongoing leakage and pain per patient. It has been giving her problems causing pain intermittently since initial placement but that has become more con stant as of late. She has been evaluated multiple times for this. Endorses clear fluid and brown thick sludge intermittently leaking from around the tube, and a gurgling sound intermittently. The skin around the tube is very irritated and painful and she feels like there is something poking her constantly from the inside. She does not necessarily feel like there is a deeper pain present. She was given a prescription for ciprofloxacin by her surgical PA within the last few weeks to rule out infection in this area, and had no improvement in symptoms after finishing the prescription. She has not been using the tube very much because it causes too much pain, and has been having difficulty performing daily activities due to the pain, and has not been working as much as she normally does. She has a PICC line in the left arm that she uses for TPN and this has been functioning appropriately. She continues to take oral food and fluids and believes that she continues to eat and drink without difficulty. Has been admitted for dehydration in the past. Denies any fevers, chills, nausea, vomiting, changes in bowel habits. Follows with gastroenterology as well. Patient states she would rather have the tube removed than deal with this pain for the rest of her life. Shortness of breath Also describes increasing dyspnea with exertion over the past week, worse than her baseline, accompanied by a mild cough and some fatigue and generalized weakness. Shortness of breath is not accompanied by any chest pain or diaphoresis. She has more difficulty walking between apartment buildings than she normally does. Denies any shortness of breath at rest, orthopnea, par oxysmal nocturnal dyspnea, wheezing, or chest tightness. She continues to smoke 1/2 pack of cigarettes per day. Of note, patient endorses having blood work 5 days ago and stated that her BUN and creatinine were elevated above baseline at that time. Home Medications Medication Instructions Recorded Confirmed Type ergocalciferol (vitamin D2) 1,250 50,000 unit PO WK #0 cap 11/26/13 08/16/21 History mcg (50,000 unit) capsule cyanocobalamin (vitamin B-12) 1 dose IM MONTHLY #0 06/11/14 08/16/21 History 1,000 mcg/mL injection solution diphenoxylate-atropine 2.5 1 tab PO QID PRN #0 tab 08/02/16 08/16/21 History mg-0.025 mg tablet (Lomotil) rizatriptan 10 mg tablet 10 mg PO DAILY PRN tab 11/06/18 08/16/21 History alprazolam 0.25 mg tablet 0.25 mg PO DAILY PRN 06/28/19 08/16/21 History unbxerkdby-uvtdekdwdehqe-pyhjiirh 1 tab PO Q6H PRN 06/28/19 08/16/21 History 50 mg-325 mg-40 mg tablet calcium carbonate 500 mg calcium 1,000 mg PO DAILY 06/28/19 08/16/21 History (1,250 mg) tablet (Oysco-500) duloxetine 30 mg capsule,delayed 30 mg PO BID cap 10/29/19 08/16/21 History release ondansetron HCl 4 mg tablet 4 mg PO Q8H PRN 10/29/19 08/16/21 History (Zofran) acetaminophen 500 mg tablet 500 mg PO Q4H PRN 08/23/20 08/16/21 History multivitamin (Daily-Larissa) 1 tab PO QAM #30 tab 10/04/20 08/16/21 Rx quetiapine 50 mg tablet (Seroquel) 50 mg PO HS 10/30/20 08/16/21 History phenazopyridine 200 mg tablet 200 mg PO Q8H PRN #10 tab 11/16/20 08/16/21 Rx (Pyridium) gabapentin 300 mg capsule 300 mg PO TID 08/16/21 08/16/21 History Allergies Allergy/AdvReac Type Severity Reaction Status Date / Time Penicillins Allergy Unknown ? REACTION Verified 08/16/21 13:39 Sulfa (Sulfonamide Allergy Unknown Unknown Verified 08/16/21 13:39 Antibiotics) reaction aspirin AdvReac Mild No an Verified 08/16/21 13:39 allergy- cannot take post-bypass surgery ragweed pollen AdvReac Mild swelling Verified 08/16/21 13:39 Past Med/Surg History Medical History Anemia S/p 1 unit PRBCs while admitted 10/01/20 to 10/05/20 Copper deficiency Depression with anxiety Hyperparathyroidism Hypotension Admitted 09/15/20 and then again 10/01/20 Kidney stones Migraine headache Nausea at times PFO (patent foramen ovale) Per records Per cardio consultation 06/29/19= pt had previous ECHO 06/13/19 that showed "trace interatrial shunt and inferoseptal wall motion abnormality could not be excluded " Poor appetite at times Weight loss, unintentional Surgical History History of bowel diversion surgery History of cholecystectomy History of colonoscopy History of cystoscopy with stent placement 08/2020 History of esophagogastroduodenoscopy (EGD) History of gastric bypass (~1999) History of lithotripsy Hx of cardiac cath jul 01 2019. 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- [employer] Feels Safe at Home: Yes Assistive Devices: Cane and Glasses Review of Systems Constitutional: + fatigue; no fever, no chills and no body aches Ear, Nose, Mouth, Throat: no nasal congestion and no sore throat Respiratory: + cough and + dyspnea on exertion; no change in sputum, no hemoptysis, no pain with cough and no wheezing Cardiovascular: no chest pain and no lightheadedness Gastrointestinal: no abdominal pain, no bloating, no nausea, no vomiting and no change in stools Genitourinary (Female): + urinary incontinence (baseline); no dysuria, no urinary frequency, no urinary urgency and no hematuria Musculoskeletal: no joint pain and no myalgia Integumentary: no rash, no lesions and no erythema Neurologic: + generalized weakness; no unsteadiness, no localized weakness, no numbness, no paresthesia, no dizziness, no syncope, no headache(s) and no confusion Psychiatric: no anxiety and no confusion Hematologic / Lymphatic: no easy bleeding, no easy bruising and no lymphadenopathy Physical Exam Vital Signs Vital Signs - 24 hr 09/03/21 12:38 09/03/21 12:42 Temperature 97.7 F Temperature Source Skin Pulse Rate 120 H Pulse Rhythm Regular Pulse Rhythm [Right Finger] Regular Pulse Strength Normal Pulse Strength [Right Finger] Normal Respiratory Rate 21 20 Respiratory Effort / Characteristics Non-Labored Spontaneous Non-Labored Spontaneous Respiratory Depth Normal Normal Respiratory Pattern Regular Regular Blood Pressure 95/65 L Blood Pressure Mean 75 Blood Pressure Position Sitting Blood Pressure Position [Left Arm] Sitting Pulse Oximetry 96 96 Oxygen Delivery Method Room Air Room Air Sepsis Recent Fever Within 48 Hours No Sepsis New/Unexplained Change in Mental Status No Sepsis Action Taken by Nursing No Action Required CONSTITUTIONAL: Underweight appearing, somewhat overall weak appearing HEAD: Normocephalic, atraumatic. EYES: conjunctivae normal, extraocular muscles intact. EARS/NOSE/MOUTH/THROAT: Mucous membranes are dry. Uvula midline. NECK: Full active range of motion. RESPIRATORY: Breathing unlabored and symmetric. Lungs clear to auscultation bilaterally. CARDIOVASCULAR: Regular rate and rhythm. No murmurs, rubs, or gallops. No lower extremity edema. ABDOMEN: Normal bowel sounds. Soft, nontender. No masses. Left CVA tenderness. G-tube intact, gurgling sound noted with manipulation causing clear fluid leakage pH 5.0 tested with pH paper. Surrounding skin is pink, eroded, and irritated with no satellite lesions. No obvious evidence of cellulitis. Moderately tender with palpation immediately surrounding the tube. MUSCULOSKELETAL: Moves bilateral upper and lower extremities at all joints without pain or difficulty. Back with normal range of motion. Scoliotic curvature noted SKIN: [place], warm, dry. No diaphoresis. NEUROLOGIC: Alert and oriented x 3. No facial palsy or dysarthria. Normal tone. PSYCHIATRIC: Appropriate. Normal affect. Course Administered Medications Discontinued Medications Sodium Chloride (Nss) 500 mls @ 999 mls/hr IV .Q31M ONE Stop: 09/03/21 13:57 Last Infusion: 09/03/21 15:14 Dose: 0 mls/hr Documented by: [id number] Admin: 09/03/21 13:57 Dose: 999 mls/hr Documented by: [id number] Medical Decision Making Laboratory Data Result diagrams: 09/03/21 14:01 09/03/21 14:01 Lab Results 09/03/21 09/03/21 Range/Units 14:01 14:01 WBC 7.93 (4.8-10.8) K/uL RBC 3.57 L (4.2-5.4) M/uL Hgb 10.8 L (12.0-16.0) g/dL Hct 33.4 L (37-47) % MCV 93.6 (80-100) fL MCH 30.3 (25-34) pg MCHC 32.3 (32-36) g/dL RDW Std Deviation 55.2 H (36.4-46.3) fL RDW Coeff of Mike 16.0 H (11.5-14.5) % Plt Count 336 (130-400) K/uL MPV 11.2 H (7.4-10.4) fL Immature Gran % (Auto) 0.3 % Neut % (Auto) 73.1 % Lymph % (Auto) 21.2 % [place] % (Auto) 3.7 % Eos % (Auto) 1.4 % Baso % (Auto) 0.3 % Neut # (Auto) 5.81 (1.4-6.5) K/uL Lymph # (Auto) 1.68 (1.2-3.4) K/uL [place] # (Auto) 0.29 (0.11-0.59) K/uL Eos # (Auto) 0.11 (0-0.5) K/uL Baso # (Auto) 0.02 (0-0.2) K/uL Immature Gran # (Auto) 0.02 (0.00-0.02) K/uL Sodium 137 (136-145) mmol/L Potassium 3.9 (3.5-5.1) mmol/L Chloride 112 H (98-107) mmol/L Carbon Dioxide 14 L (21-32) mmol/L Anion Gap 11 (3-11) BUN 36 H (6-23) mg/dl Creatinine 1.75 H (0.6-1.2) mg/dl Est Cr Clr Drug Dosing 21.4 ml/min Est GFR ( Amer) 36.6 ml/min Est GFR (Non-Af Amer) 31.5 ml/min BUN/Creatinine Ratio 20.6 H (10-20) Glucose 74 (70-99(Fasting)) mg/dl Calcium 7.9 L (8.5-10.1) mg/dl Total Bilirubin 0.3 (0.2-1.0) mg/dl AST 11 L (13-39) U/L ALT 10 (7-52) U/L Alkaline Phosphatase 109 H (34-104) U/L Troponin I < 0.03 (0-0.04) ng/ml Total Protein 7.2 (6.0-8.3) gm/dl Albumin 3.4 (3.4-5.0) gm/dl Globulin 3.8 (2.5-4.0) gm/dl Albumin/Globulin Ratio 0.9 (0.9-2) Lipase 27 (11-82) U/L Imaging Data Radiologist's Impression: Chest X-Ray 09/03/21 13:29 XR chest 2V PA/lateral CLINICAL HISTORY: shortness of breath with exertion x 1 week, cough. COMPARISON STUDY: 421 TECHNIQUE: 2 views of the chest FINDINGS: Frontal and lateral radiographs of the chest demonstrate the cardiomediastinal silhouette to be within normal limits. The lungs are clear of alveolar opacities. There is no evidence for effusion bilaterally. There is no evidence for vascular congestion. There is no acute osseous pathology. There is a prominent dextroscoliotic curve of the thoracic spine. IMPRESSION: 1. No acute cardiopulmonary disease. ACT 112: Negative or not required by law. Electronically signed by: Kishan Ye M.D. 09/03/2021 3:19 PM ECG Data Attestation: I personally reviewed and interpreted this ECG as follows: (Sinus rhythm with a rate of 82. Intervals within normal limits. Left axis deviation. No acute ST elevation or evidence of ischemia. Compared to prior twave inversions no longer present in V2 and V3) MDM Narrative 56-year-old female presents with ongoing problems with her G-tube, as well as report of increasing shortness of breath and cough over the past week accompanied by generalized weakness and fatigue. On initial exam heart rate in the high 90s with a blood pressure of 85 systolic over mid 50s diastolic, lower than her baseline. Mildly ill-appearing with dry mucous membranes. Her G-tube is tender with manipulation, gurgles, and leaks clear fluid that causes worsening pain to the surrounding skin that appears to be eroded and irritated although it does not appear to be infected. Clinically she appears somewhat dehydrated. IV fluids administered for presumptive dehydration. G-tube site was cleaned and prepped with a barrier cream and pad for topical relief. Labs demonstrate evidence of acute kidney injury with creatinine of 1.75 from 0.9, likely indicative of dehydration. EKG unremarkable. Troponin is negative. Clinically the patient description of feeling short of breath with exertion is more likely secondary to dehydration as her chest x-ray is clear, troponin is negative, ECG is reassuring, she is not tachycardic. This can be reevaluated after receiving IV fluids for discussion of potential further work-up as indicated. Case was discussed with Karena Russo PA-C with [facility] who is agreeable to admitting for observation, IV fluid rehydration, and further discussion on management of the tube. Patient also agreeable with this plan. Impression & Plan Acute kidney injury, Acute dehydration, Irritation around percutaneous endoscopic gastrostomy (PEG) tube site, Generalized weakness See [facility] Discharge Plan Visit Data Chief Complaint: Feeding/PEG Tube Replacement Stated Complaint: PEG TUBE ISSUE ED Provider: Jose Caicedo ED Midlevel Provider: Stu Joyce Discharge Problem: Acute kidney injury, Acute dehydration, Irritation around percutaneous endoscopic gastrostomy (PEG) tube site, Generalized weakness Forms Stand Alone Forms: My [facility] Prescriptions Prescriptions: No Action rizatriptan 10 mg tablet 10 mg PO DAILY PRN (Reason: Migraines) RF: 0 gabapentin 300 mg capsule 300 mg PO TID RF: 0 ondansetron HCl [Zofran] 4 mg tablet 4 mg PO Q8H PRN (Reason: nausea and vomiting) RF: 0 quetiapine [Seroquel] 50 mg tablet 50 mg PO HS RF: 0 ergocalciferol (vitamin D2) 50,000 unit Capsule 50,000 unit PO WK Qty: 0 RF: 0 cyanocobalamin (vitamin B-12) 1,000 mcg/mL Solution 1 dose IM MONTHLY Qty: 0 RF: 0 diphenoxylate-atropine [Lomotil] 2.5-0.025 mg Tablet 1 tab PO QID PRN (Reason: Diarrhea) Qty: 0 RF: 0 acetaminophen 500 mg tablet 500 mg PO Q4H PRN (Reason: Pain) RF: 0 slkrvjujic-ginrumnufvqqt-wscv 50-325-40 mg tablet 1 tab PO Q6H PRN (Reason: Pain) RF: 0 alprazolam 0.25 mg tablet 0.25 mg PO DAILY PRN (Reason: Anxiety) RF: 0 calcium carbonate [Oysco-500] 500 mg calcium (1,250 mg) tablet 1,000 mg PO DAILY RF: 0 duloxetine 30 mg capsule,delayed release(DR/EC) 30 mg PO BID RF: 0 phenazopyridine [Pyridium] 200 mg tablet 200 mg PO Q8H PRN (Reason: pain) Qty: 10 RF: 0 multivitamin [Daily-Larissa] Tablet 1 tab PO QAM Qty: 30 RF: 3 Referrals Referrals: Evelyn Andrews MD [Primary Care Provider] -
[2021-09-03 14:30] LABS: Basophils # (auto) 0.02 K/uL (0-0.2); Basophils % (auto) 0.3 %; Eosinophils # (auto) 0.11 K/uL (0-0.5); Eosinophils % (auto) 1.4 %; Hematocrit (blood only) 33.4 % (37-47); Hemoglobin 10.8 g/dL (12.0-16.0); Immature Granulocytes # (auto) 0.02 K/uL (0.00-0.02); Immature Granulocytes % (auto) 0.3 %; Lymphocytes # (auto) 1.68 K/uL (1.2-3.4); Lymphocytes % (auto) 21.2 %; Mean Corpuscular Hemoglobin 30.3 pg (25-34); Mean Corpuscular Hgb Conc 32.3 g/dL (32-36); Mean Corpuscular Volume 93.6 fL (80-100); Mean Platelet Volume 11.2 fL (7.4-10.4); Monocytes # (auto) 0.29 K/uL (0.11-0.59); Monocytes % (auto) 3.7 %; Neutrophils # (auto) 5.81 K/uL (1.4-6.5); Neutrophils % (auto) 73.1 %; Platelet Count 336 K/uL (130-400); RDW Standard Deviation 55.2 fL (36.4-46.3); Red Blood Count 3.57 M/uL (4.2-5.4); White Blood Count 7.93 K/uL (4.8-10.8)
[2021-09-03 14:52] LABS: Alanine Aminotransferase 10 U/L (7-52); Albumin Globulin Ratio 0.9 (0.9-2); Albumin Level 3.4 gm/dl (3.4-5.0); Alkaline Phosphatase 109 U/L (34-104); Anion Gap 11 (3-11); Aspartate Aminotransferase 11 U/L (13-39); BUN Creatinine Ratio 20.6 (10-20); Bilirubin,Total 0.3 mg/dl (0.2-1.0); Blood Urea Nitrogen 36 mg/dl (6-23); Calcium 7.9 mg/dl (8.5-10.1); Carbon Dioxide 14 mmol/L (21-32); Chloride 112 mmol/L (98-107); Creatinine Clr Calc Pharmacy 21.4 ml/min; Est GFR (African American) 36.6 ml/min; Est GFR (Non-African American) 31.5 ml/min; Globulin 3.8 gm/dl (2.5-4.0); Glucose 74 mg/dl (70-99(Fasting)); Lipase 27 U/L (11-82); Potassium 3.9 mmol/L (3.5-5.1); Sodium 137 mmol/L (136-145); Total Protein 7.2 gm/dl (6.0-8.3)
[2021-09-03 14:53] LABS: Troponin I < 0.03 ng/ml (0-0.04)
--- NOTE | 2021-09-03 15:21 | XRay Report ---
XR chest 2V PA/lateral CLINICAL HISTORY: shortness of breath with exertion x 1 week, cough. COMPARISON STUDY: 421 TECHNIQUE: 2 views of the chest FINDINGS: Frontal and lateral radiographs of the chest demonstrate the cardiomediastinal silhouette to be withi n normal limits. The lungs are clear of alveolar opacities. There is no evidence for effusion bilater ally. There is no evidence for vascular congestion. There is no acute osseous pathology. There is a p rominent dextroscoliotic curve of the thoracic spine. IMPRESSION: 1. No acute cardiopulmonary disease. ACT 112: Negative or not required by law. Electronically signed by: Kishan Ye M.D. 09/03/2021 3:19 PM
--- NOTE | 2021-09-03 16:37 | Electrocardiogram Report ---
Test Reason : Blood Pressure : / mmHG Vent. Rate : 082 BPM Atrial Rate : 082 BPM P-R Int : 154 ms QRS Dur : 080 ms QT Int : 344 ms P-R-T Axes : 064 -20 047 degrees QTc Int : 401 ms Normal sinus rhythm Low voltage QRS Borderline ECG When compared with ECG of 02-OCT-2020 13:10, Nonspecific T wave abnormality no longer present Confirmed by Barber Vasquez ([id number]) on 09/03/2021 4:37:15 PM Referred By: REFERRED SELF Confirmed By:Barber Vasquez
--- NOTE | 2021-09-03 16:49 | History & Physical Report ---
Date of Service September 03, 2021 Assessment & Plan (1) Acute kidney injury: (2) Acute dehydration: (3) Irritation around percutaneous endoscopic gastrostomy (PEG) tube site: (4) Hypomagnesemia: (5) COVID-19 virus infection: (6) Migraine headache: (7) Depression with anxiety: (8) Malabsorption: (9) Severe malnutrition: (10) Anemia: Plan: - Admit for additional work-up and rehydration - Continue IVF and repeat labs in the AM - Regular diet - pt denies need for TPN while admitted and states she will f/u with her outpt team at discharge - Consult GI - pt would like to discuss how to have her GI tube removed as she feels it is severely impacting her quality of life - Wound care to PEG site - COVID isolation precautions for now - pt requests confirmatory testing - Continue other home meds as appropriate - Replete Mag and recheck in AM Pt seen and reviewed with collaborating physician, Dr. Pratt. Plan of care discussed and as outlined above. 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 Pt underwent open gastric bypass in 2000, abdominoplasty in 2002, surgery for "twisting of bowels" in 2004 that followed by surgery to remove a retained object in the abdomen. Feeding tube placed in gastric remnant in 2013 for worsening malnutrition. 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 PEG placement attempted in December 2020 but unsuccessful. Axios was able to be placed successfully in December. PEG placed surgically in gastric remnant in early Mar 2021. Has been on TPN due to limited ability to maintain her nutrition via the gut. 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 She has had continued issues with pain at the PEG site since last fall. She was treated for a cellulitis at the site in Jun 2021 with doxycycline. She is receiving nutrition via TPN, TF, and by mouth with goal to eventually wean off TPN. PEG tube was changed to Martin-Mcfadden tube in Jul 2021. Creatinine in January 2021 was 1.0 but has been trending up since then. Has been referred to nephrology for outpatient evaluation. She notes that she has not been feeling well over the last week. She has had chills but no fevers - temp has been running lower than usual. Soft stools Weds and Thurs but better today. She has also noted TOBIN but breathing better at rest. Very fatigued, sleeping more, no motivation to do anything. Increased nausea over the last week but pt attributed to taking Aleve for the PEG tube site pain. Has noted a SMALLWOOD but no dizziness. Received the COVID vaccine x3 with last dose Apr/May (unsure of exact date). Currently, pt is very frustrated with the ongoing pain and issues with the PEG tube and would like to discuss having it removed. Allergies Allergy/AdvReac Type Severity Reaction Status Date / Time Penicillins Allergy Unknown ? REACTION Verified 09/03/21 16:29 Sulfa (Sulfonamide Allergy Unknown Unknown Verified 09/03/21 16:29 Antibiotics) reaction aspirin AdvReac Mild No an Verified 09/03/21 16:29 allergy- cannot take post-bypass surgery ragweed pollen AdvReac Mild swelling Verified 09/03/21 16:29 Home Medications Medication Instructions Recorded Confirmed Type ergocalciferol (vitamin D2) 1,250 50,000 unit PO WK #0 cap 11/26/13 09/03/21 History mcg (50,000 unit) capsule cyanocobalamin (vitamin B-12) 1 dose IM MONTHLY #0 06/11/14 09/03/21 History 1,000 mcg/mL injection solution diphenoxylate-atropine 2.5 1 tab PO QID PRN #0 tab 08/02/16 09/03/21 History mg-0.025 mg tablet (Lomotil) rizatriptan 10 mg tablet 10 mg PO DAILY PRN tab 11/06/18 09/03/21 History alprazolam 0.25 mg tablet 0.25 mg PO DAILY PRN 06/28/19 09/03/21 History jvlmfnjcmd-ktkajffrnmicp-rzsbqvfu 1 tab PO Q6H PRN 06/28/19 09/03/21 History 50 mg-325 mg-40 mg tablet calcium carbonate 500 mg calcium 1,000 mg PO DAILY 06/28/19 09/03/21 History (1,250 mg) tablet (Oysco-500) duloxetine 30 mg capsule,delayed 30 mg PO BID cap 10/29/19 09/03/21 History release ondansetron HCl 4 mg tablet 4 mg PO Q8H PRN 10/29/19 09/03/21 History (Zofran) acetaminophen 500 mg tablet 500 mg PO Q4H PRN 08/23/20 09/03/21 History multivitamin (Daily-Larissa) 1 tab PO QAM #30 tab 10/04/20 09/03/21 Rx gabapentin 300 mg capsule 300 mg PO TID 08/16/21 09/03/21 History oxycodone-acetaminophen 7.5 mg-325 0.5 tab PO Q8H PRN 09/03/21 09/03/21 History mg tablet quetiapine 100 mg tablet 100 mg PO DAILY 09/03/21 09/03/21 History tizanidine 4 mg tablet 2 mg PO DIRECTED PRN 09/03/21 09/03/21 History Past Med/Surg History Medical History Anemia S/p 1 unit PRBCs while admitted 10/01/20 to 10/05/20 Copper deficiency Depression with anxiety Hyperparathyroidism Hypotension Admitted 09/15/20 and then again 10/01/20 Kidney stones Migraine headache Nausea at times PFO (patent foramen ovale) Per records Per cardio consultation 06/29/19= pt had previous ECHO 06/13/19 that showed "trace interatrial shunt and inferoseptal wall motion abnormality could not be excluded " Poor appetite at times Weight loss, unintentional Zinc poisoning Surgical History History of bowel diversion surgery History of cholecystectomy History of colonoscopy History of cystoscopy with stent placement 08/2020 History of esophagogastroduodenoscopy (EGD) History of gastric bypass (~1999) History of lithotripsy Hx of cardiac cath jul 01 2019. 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- [employer] Feels Safe at Home: Yes Assistive Devices: Cane and Glasses Review of Systems Review of Systems: All systems reviewed & are unremarkable except as noted in HPI & below Constitutional: + chills, + fatigue and + weakness; no fever and no anorexia Eyes: + diplopia Ear, Nose, Mouth, Throat: no nasal congestion, no nasal discharge and no sore throat Respiratory: + dyspnea on exertion; no cough and no wheezing Cardiovascular: no chest pain, no palpitations and no edema Gastrointestinal: as per Subjective / HPI Genitourinary: no dysuria and no hematuria Musculoskeletal: no back pain and no radicular pain Integumentary: irritation and drainage at PEG site Neurologic: + generalized weakness and + headache(s); no dizziness Psychiatric: + anxiety Physical Exam Constitutional: + thin and + frail appearing; no acute distress Eyes: + anicteric sclerae Neck: trachea midline Respiratory: no respiratory distress and no labored breathing Auscultation: lungs clear to auscultation bilaterally; no rales, no rhonchi and no wheezes Cardiovascular: Rate/Rhythm: regular rate and regular rhythm Vessels: radial pulses present Extremities: no edema Gastrointestinal (Abdomen): Inspection/Auscultation: normal bowel sounds; abdomen not distended Percussion/Palpation: + abdomen tender (around PEG site) and abdomen soft Musculoskeletal: Head/Neck/Chest: normocephalic, head atraumatic and neck supple Skin: PEG site with mild erythema and scant clear drainage Neurologic: moves all extremities; no focal motor deficits Results & Data Results & Data ([facility]) Vital Signs (Past 12 Hours) Vital Signs Temp Pulse Resp BP Pulse Ox 09/03/21 12:42 36.5 C 120 H 20 95/65 L 96 09/03/21 12:38 21 96 Vital Signs Temp Pulse Resp BP Pulse Ox 09/03/21 16:40 75 19 99 09/03/21 16:30 72 20 98 09/03/21 16:20 68 17 97 09/03/21 16:10 70 15 98 09/03/21 16:00 93 H 22 09/03/21 15:50 74 17 89 L 09/03/21 15:40 71 19 96 09/03/21 15:30 70 16 99 09/03/21 15:20 80 19 95 09/03/21 15:14 80 15 09/03/21 15:00 74 13 98 09/03/21 14:50 79 20 97 09/03/21 14:40 75 15 97 09/03/21 14:30 81 30 H 97 09/03/21 14:20 91 H 16 96 09/03/21 14:10 83 14 97 09/03/21 14:00 83 17 09/03/21 13:50 101 H 19 09/03/21 13:40 88 21 95 09/03/21 13:30 95 H 18 98 09/03/21 13:27 95 H 20 97 09/03/21 12:42 36.5 C 120 H 20 95/65 L 96 09/03/21 12:38 21 96 Intake and Output 09/03/21 09/03/21 09/03/21 06:59 14:59 22:59 Intake Total 1000 / 1000 Balance 1000 / 1000 Intake: IV 1000 / 1000 Sodium Chloride 0.9% 500 ml @ 1000 / 1000 999 mls/hr IV .Q31M ONE Rx#: [id number] Other: Weight 38.7 kg Weight Measurement Method Built in [facility] Patient Weight 09/04/21 06:59 Weight 38.7 kg Laboratory Results Laboratory Results - last 24 hr 09/03/21 09/03/21 09/03/21 14:01 14:01 16:20 WBC 7.93 RBC 3.57 L Hgb 10.8 L Hct 33.4 L MCV 93.6 MCH 30.3 MCHC 32.3 RDW Std Deviation 55.2 H RDW Coeff of Mike 16.0 H Plt Count 336 MPV 11.2 H Immature Gran % (Auto) 0.3 Neut % (Auto) 73.1 Lymph % (Auto) 21.2 [place] % (Auto) 3.7 Eos % (Auto) 1.4 Baso % (Auto) 0.3 Neut # (Auto) 5.81 Lymph # (Auto) 1.68 [place] # (Auto) 0.29 Eos # (Auto) 0.11 Baso # (Auto) 0.02 Immature Gran # (Auto) 0.02 Sodium 137 Potassium 3.9 Chloride 112 H Carbon Dioxide 14 L Anion Gap 11 BUN 36 H Creatinine 1.75 H Est Cr Clr Drug Dosing 21.4 Est GFR ( Amer) 36.6 Est GFR (Non-Af Amer) 31.5 BUN/Creatinine Ratio 20.6 H Glucose 74 Calcium 7.9 L Total Bilirubin 0.3 AST 11 L ALT 10 Alkaline Phosphatase 109 H Troponin I < 0.03 Total Protein 7.2 Albumin 3.4 Globulin 3.8 Albumin/Globulin Ratio 0.9 Lipase 27 SARS-CoV-2, RNA, NAAT POSITIVE A* Diagnostic Findings Chest X-ray 09/03/21 - IMPRESSION: 1. No acute cardiopulmonary disease. Medications Administered Discontinued Medications Sodium Chloride (Nss) 500 mls @ 999 mls/hr IV .Q31M ONE Stop: 09/03/21 13:57 Last Infusion: 09/03/21 15:14 Dose: 0 mls/hr Documented by: [id number] Admin: 09/03/21 13:57 Dose: 999 mls/hr Documented by: [id number] Sodium Chloride (Nss) 500 mls @ 999 mls/hr IV .Q31M ONE Stop: 09/03/21 16:11 Last Admin: 09/03/21 16:29 Dose: 999 mls/hr Documented by: [id number] Supervising Physician Co-Signing Physician Notes Attending addendum: The patient was seen and examined in the emergency room She has been complaining of pain at the G-tube site for the last 2 weeks or so Also she has been having shortness of breath and weakness recently She was tested positive for COVID-19 in the ER without any x-ray findings and or desaturation on room air On examination No apparent distress at rest complains to have significant pain at the site of the PEG tube Blood pressure noted to be low at 84/52 without any symptoms Chest-clear to auscultate bilaterally Heart-S1, S2 regular Abdomen-not distended, PEG tube site is inflamed with tenderness at the draining area, was not present Extremities-negative for any edema 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 Generally weak but no focal sensory or motor deficit appreciated Her admission labs, EKG and imaging studies reviewed Has COVID 19 virus infection with O2 saturation) findings so will not give any treatment for that Has low blood pressure secondary to dehydration and ROBINSON-will give IVF G-tube malfunction and she has been on TPN, G-tube feeding and oral feeding as an outpatient GI will be consulted Reviewed assessment plan as outlined above by SUSAN [address] (1) Anemia Anemia type: unspecified type Qualified Code(s): D64.9 - Anemia, unspecified
[2021-09-03 17:41] LABS: Magnesium 1.6 mg/dl (1.7-2.4); Phosphorus 3.9 mg/dl (2.5-4.9)
[2021-09-03] MEDS ORDERED: D5W AND NSS 1,000 ML IV SCH (18:30)
[2021-09-03] MEDS ORDERED: MAGNESIUM SULFATE / D5W 1 GM/100 ML BAG IV ONE (18:30)
[2021-09-03] MEDS ORDERED: oxyCODONE/APAP 7.5/325MG TAB PO PRN (18:38)
[2021-09-03 19:20] LABS: Influenza A virus by PCR Negative (Neg); Influenza B virus by PCR Negative (Neg); RSV by PCR Negative (Neg)
[2021-09-03 19:51] LABS: SARS CoV2 RNA(COVID-19) InHosp POSITIVE (Negative)
[2021-09-03] MEDS ORDERED: MENTHOL-ZINC OXIDE 360 APPLN/120 GM TUBE EXT SCH (20:36)
[2021-09-03] MEDS ORDERED: ALPRAZolam 0.25 MG TABLET PO PRN (20:36)
[2021-09-03] MEDS: GABAPENTIN 300 MG CAP PO SCH (21:11)
[2021-09-03] MEDS: DULoxetine HCL 30 MG CAP PO SCH (21:11)
[2021-09-03] MEDS: oxyCODONE/ACETAMINOPHEN 5mg/325mg TAB PO PRN (21:11)
[2021-09-03] MEDS: HEPARIN SOD 5,000 UNIT/0.5 ML VIAL SQ SCH (21:12)
[2021-09-03] MEDS ORDERED: LACTATED RINGER'S 1,000 ML IV ONE (23:01)
[2021-09-04] MEDS: QUEtiapine FUMARATE 100 MG TABLET PO SCH ×2 (00:01→20:00)
[2021-09-04] MEDS: HEPARIN SOD 5,000 UNIT/0.5 ML VIAL SQ SCH ×3 (05:06→21:03)
[2021-09-04 07:17] LABS: Hematocrit (blood only) 24.5 % (37-47); Hemoglobin 7.8 g/dL (12.0-16.0); Mean Corpuscular Hgb Conc 31.8 g/dL (32-36); Mean Corpuscular Volume 94.2 fL (80-100); Mean Platelet Volume 11.3 fL (7.4-10.4); Platelet Count 266 K/uL (130-400); RDW Coefficient of Variation 16.4 % (11.5-14.5); RDW Standard Deviation 56.9 fL (36.4-46.3); White Blood Count 7.02 K/uL (4.8-10.8)
[2021-09-04 07:35] LABS: BUN Creatinine Ratio 22.4 (10-20); Calcium 6.9 mg/dl (8.5-10.1); Creatinine Clr Calc Pharmacy 31.2 ml/min; Est GFR (African American) 50.5 ml/min; Est GFR (Non-African American) 43.6 ml/min; Magnesium 1.7 mg/dl (1.7-2.4); Potassium 3.9 mmol/L (3.5-5.1)
[2021-09-04 07:48] LABS: Basophils # (auto) 0.03 K/uL (0-0.2); Basophils % (auto) 0.4 %; Echinocytes 1+; Eosinophils # (auto) 0.19 K/uL (0-0.5); Eosinophils % (auto) 2.7 %; Immature Granulocytes # (auto) 0.02 K/uL (0.00-0.02); Immature Granulocytes % (auto) 0.3 %; Lymphocytes # (auto) 2.09 K/uL (1.2-3.4); Lymphocytes % (auto) 29.8 %; Monocytes # (auto) 0.45 K/uL (0.11-0.59); Monocytes % (auto) 6.4 %; Neutrophils # (auto) 4.24 K/uL (1.4-6.5); Neutrophils % (auto) 60.4 %
[2021-09-04] MEDS ORDERED: QUEtiapine FUMARATE 100 MG TABLET PO SCH (09:00)
[2021-09-04] MEDS ORDERED: SODIUM CHLORIDE 0.9% 1000ML 500 ML IV ONE (09:07)
[2021-09-04] MEDS ORDERED: STAT IV STA ×3 (09:20→16:36)
[2021-09-04] MEDS: DULoxetine HCL 30 MG CAP PO SCH ×2 (09:33→20:01)
[2021-09-04] MEDS: CALCIUM CARBONATE 1250MG TAB PO SCH (09:33)
[2021-09-04] MEDS: MULTIVITAMIN TAB PO SCH (09:33)
[2021-09-04] MEDS: GABAPENTIN 300 MG CAP PO SCH ×3 (09:33→20:01)
[2021-09-04] MEDS ORDERED: SODIUM BICARBONATE 8.4% 75 MEQ in DEXTROSE 5% 1,000 ML IV SCH (10:30)
[2021-09-04] MEDS ORDERED: CALCIUM GLUCONATE 10% 2,000 MG in DEXTROSE 5% 50 ML IV STA (12:55)
--- NOTE | 2021-09-04 13:41 | Hospitalist Progress Note ---
Date of Service September 04, 2021 Assessment & Plan (1) Acute kidney injury: Plan: ROBINSON on CKD III Metabolic Acidosis Likely prerenal due to poor oral intake secondary to PEG tube issues Cr: 1.7>>1.34 Avoid nephro toxic agents Start IV fluids Monitor renal function (2) Acute dehydration: Plan: Management as above (3) Irritation around percutaneous endoscopic gastrostomy (PEG) tube site: Plan: Patient states having tenderness with PEG tube use Empirically started on doxycycline Blood Cx pending GI consulted Pain control (4) Hypomagnesemia: Plan: Hypocalcemia Replete electrolytes as needed Monitor (5) COVID-19 virus infection: Plan: COVID 19 Infection Patient is Vaccinated for COVID CXR:No acute cardiopulmonary disease Check Procalcitonin, CRP Blood Cultures obtained Isolation precautions--Airborne/Contact DVT prophylaxis on Heparin SQ Saturating well on room air (6) Migraine headache: Plan: Stable (7) Depression with anxiety: Plan: Continue home meds (8) Malabsorption: Plan: H/O gastric bypass surgery Energy And Sustainability Manager consulted (9) Severe malnutrition: Plan: Severe protein calorie malnutrition BMI 20 (10) Anemia: Plan: Energy And Sustainability Manager consulted Plan: DVT Px: Heparin SQ Code Status Full Code Admission and Anticipated Discharge Date Admission Date: September 03, 2021 Subjective Patient is seen and examined at bedside States having discomfort with PEG tube use Reports mild cough Denies any chest pain, shortness of breath, nausea, diarrhea Also states having minimal dizziness with ambulation Offers no other complaints Saturating well on room air Review of Systems Review of Systems: All systems reviewed & are unremarkable except as noted in Subjective Physical Exam Physical Exam: Physical Exam: Vitals signs as noted above General Appearance:Thin, Frail, no apparent distress Head: normocephalic, Atraumatic Eyes: normal inspection, EOMI Neck: supple, Trachea midline Respiratory/Chest: Decreased breath sounds, CTA, No accessory muscle use Cardiovascular: S1, S2, No murmur Abdomen/GI:Soft, + PEG tube, mild tender, Bowel sounds present Extremities/Musculoskeletal:normal inspection, no edema Neurologic/Psych:AAOX3, grossly no focal neurological deficits Skin: normal color, warm Results & Data Results & Data ([facility]) Vital Signs (Past 12 Hours) Vital Signs Temp Pulse Pulse Resp BP BP Pulse Ox 09/04/21 12:09 65 09/04/21 11:31 76 17 72/49 L 95 09/04/21 09:34 70/42 L 09/04/21 08:45 36.6 C 76 16 66/46 L 09/04/21 03:50 36.4 C L 61 18 83/48 L 93 Laboratory Results Short CBC 09/03/21 09/04/21 Range/Units 14:01 06:34 WBC 7.93 7.02 (4.8-10.8) K/uL Hgb 10.8 L 7.8 L D (12.0-16.0) g/dL Hct 33.4 L 24.5 L (37-47) % Plt Count 336 266 (130-400) K/uL BMP 09/03/21 09/04/21 14:01 06:34 Sodium 137 136 Potassium 3.9 3.9 Chloride 112 H 117 H Carbon Dioxide 14 L 15 L BUN 36 H 30 H Creatinine 1.75 H 1.34 H D Glucose 74 74 Calcium 7.9 L 6.9 L Cardiac Enzymes 09/03/21 Range/Units 14:01 Troponin I < 0.03 (0-0.04) ng/ml Liver Function 09/03/21 Range/Units 14:01 Total Bilirubin 0.3 (0.2-1.0) mg/dl AST 11 L (13-39) U/L ALT 10 (7-52) U/L Alkaline Phosphatase 109 H (34-104) U/L Albumin 3.4 (3.4-5.0) gm/dl (1) Anemia Anemia type: unspecified type Qualified Code(s): D64.9 - Anemia, unspecified
[2021-09-04] MEDS: NICOTINE 21 MG/24 HR TDSY TD SCH (13:44)
[2021-09-04] MEDS: DOXYCYCLINE HYCLATE 100 MG CAP PO SCH ×2 (16:52→21:03)
[2021-09-04] MEDS: oxyCODONE/ACETAMINOPHEN 5mg/325mg TAB PO PRN (17:14)
[2021-09-04] MEDS: SODIUM BICARBONATE 8.4% 75 MEQ in SODIUM CHLORIDE 0.45 % 1,000 ML IV SCH (18:21)
[2021-09-04] MEDS: BUTALBITAL/ACETAMIN/CAFFEINE TAB PO PRN (21:02)
[2021-09-04] MEDS ORDERED: Nursing to Pharmacy Communication SCH (22:00)
[2021-09-04 22:35] LABS: Appearance Urine Turbid (Clear); Bacteria Urine Automated 4+ (Negative); Bilirubin Urine Negative (Negative); Blood Urine 3+ (Negative); Color Urine Yellow; Epithelial Cell Urine Auto >30 /lpf (0-5); Glucose Urine UA Negative (Negative); Ketones Urine Negative (Negative); Leukocyte Esterase Urine 3+ (Negative); Nitrite Urine Negative (Negative); Protein Urine 1+ (Negative); RBC Urine Automated >30 /hpf (0-4); Specific Gravity Urine 1.014 (1.000-1.030); Urobilinogen Urine Negative (Negative); WBC Urine Automated >30 /hpf (0-5)
[2021-09-05] MEDS: SODIUM BICARBONATE 8.4% 75 MEQ in SODIUM CHLORIDE 0.45 % 1,000 ML IV SCH ×2 (03:26→12:29)
[2021-09-05] MEDS: HEPARIN SOD 5,000 UNIT/0.5 ML VIAL SQ SCH ×3 (05:21→21:18)
[2021-09-05] MEDS: oxyCODONE/ACETAMINOPHEN 5mg/325mg TAB PO PRN ×3 (06:06→18:07)
[2021-09-05 07:50] LABS: Hemoglobin 7.5 g/dL (12.0-16.0); Mean Corpuscular Hgb Conc 32.6 g/dL (32-36); Mean Platelet Volume 10.8 fL (7.4-10.4); Platelet Count 283 K/uL (130-400); RDW Coefficient of Variation 15.6 % (11.5-14.5); RDW Standard Deviation 53.1 fL (36.4-46.3); White Blood Count 8.14 K/uL (4.8-10.8)
[2021-09-05 08:19] LABS: BUN Creatinine Ratio 23.6 (10-20); C Reactive Protein 4.26 mg/dl (0-0.5); Calcium 7.1 mg/dl (8.5-10.1); Creatinine Clr Calc Pharmacy 39.5 ml/min; Est GFR (Non-African American) 57.8 ml/min; Magnesium 1.2 mg/dl (1.7-2.4); Phosphorus 2.1 mg/dl (2.5-4.9); Potassium 3.8 mmol/L (3.5-5.1)
[2021-09-05] MEDS ORDERED: SODIUM PHOSPHATE 3 MMOL/1 ML INFUSION IV ONE (08:52)
[2021-09-05] MEDS ORDERED: STAT IV STA (08:52)
[2021-09-05] MEDS ORDERED: CALCIUM GLUCONATE 10% 2,000 MG in DEXTROSE 5% 50 ML IV ONE (09:10)
[2021-09-05] MEDS ORDERED: SODIUM PHOSPHATE 12 MMOL in DEXTROSE 5% 250 ML IV ONE (09:15)
[2021-09-05] MEDS: cefTRIAXone SODIUM 1,000 MG in DEXTROSE 5% 50 ML IV SCH (10:44)
[2021-09-05] MEDS: MAGNESIUM SULFATE / D5W 1 GM/100 ML BAG IV SCH ×2 (10:44→12:20)
[2021-09-05] MEDS: GABAPENTIN 300 MG CAP PO SCH ×3 (10:46→20:55)
[2021-09-05] MEDS: MULTIVITAMIN TAB PO SCH (10:46)
[2021-09-05] MEDS: CALCIUM CARBONATE 1250MG TAB PO SCH (10:46)
[2021-09-05] MEDS: DULoxetine HCL 30 MG CAP PO SCH ×2 (10:46→20:55)
[2021-09-05] MEDS: NICOTINE 21 MG/24 HR TDSY TD SCH (10:46)
[2021-09-05] MEDS: DOXYCYCLINE HYCLATE 100 MG CAP PO SCH ×2 (12:19→21:18)
[2021-09-05] MEDS ORDERED: ACETAMINOPHEN 325 MG TAB PO PRN (13:45)
--- NOTE | 2021-09-05 14:53 | Hospitalist Progress Note ---
Date of Service September 05, 2021 Assessment & Plan (1) Acute kidney injury: Plan: ROBINSON on CKD III Metabolic Acidosis Prerenal due to poor oral intake secondary to PEG tube issues Cr: 1.7>>1.34>1.06 Avoid nephro toxic agents Continue IV fluids Monitor renal function (2) Acute dehydration: Plan: Management as above (3) Irritation around percutaneous endoscopic gastrostomy (PEG) tube site: Plan: PEG tube site possible Infection -POA Patient states having tenderness with PEG tube use Empirically started on doxycycline, Ceftriaxone Blood Cx GI consulted--Pending Input Pain control Will start on TPN for now (4) Hypomagnesemia: Plan: Hypocalcemia Hypophosphatemia Replete electrolytes as needed Monitor (5) COVID-19 virus infection: Plan: COVID 19 Infection Patient is Vaccinated for COVID CXR:No acute cardiopulmonary disease Check Procalcitonin, CRP Blood Cultures obtained Isolation precautions--Airborne/Contact DVT prophylaxis on Heparin SQ Saturating well on room air (6) Migraine headache: Plan: Stable (7) Depression with anxiety: Plan: Continue home meds (8) Malabsorption: Plan: H/O gastric bypass surgery Manager Transport consulted (9) Severe malnutrition: Plan: Severe protein calorie malnutrition BMI 20 (10) Anemia: Plan: Manager Transport consulted Plan: DVT Px: Heparin SQ Code Status Full Code Admission and Anticipated Discharge Date Admission Date: September 04, 2021 Subjective Patient is seen and examined at bedside Reports mild headache today Persistent PEG tube site pain and discharge Mild cough unchanged Denies any chest pain, shortness of breath, nausea, diarrhea Saturating well on room air Review of Systems Review of Systems: All systems reviewed & are unremarkable except as noted in Subjective Physical Exam Physical Exam: Physical Exam: Vitals signs as noted above General Appearance:Thin, Frail, no apparent distress Head: normocephalic, Atraumatic Eyes: normal inspection, EOMI Neck: supple, Trachea midline Respiratory/Chest: Decreased breath sounds, CTA, No accessory muscle use Cardiovascular: S1, S2, No murmur Abdomen/GI:Soft, + PEG tube, mild tender, Bowel sounds present Extremities/Musculoskeletal:normal inspection, no edema Neurologic/Psych:AAOX3, grossly no focal neurological deficits Skin: normal color, warm Results & Data Results & Data ([facility]) Vital Signs (Past 12 Hours) Vital Signs Temp Pulse Pulse Resp BP Pulse Ox 09/05/21 10:53 36.3 C L 67 17 76/52 L 95 09/05/21 07:07 71 09/05/21 06:00 77 100/64 95 09/05/21 03:33 36.4 C L 76 16 94/62 L 93 Laboratory Results Short CBC 09/05/21 Range/Units 07:39 WBC 8.14 (4.8-10.8) K/uL Hgb 7.5 L (12.0-16.0) g/dL Hct 23.0 L (37-47) % Plt Count 283 (130-400) K/uL BMP 09/05/21 07:39 Sodium 134 L Potassium 3.8 Chloride 109 H Carbon Dioxide 21 BUN 25 H Creatinine 1.06 Glucose 87 Calcium 7.1 L Urine 09/04/21 Range/Units Unknown Urine Color Yellow Urine Appearance Turbid A (Clear) Urine pH 6.0 (4.5-7.5) Ur Specific [place] 1.014 (1.000-1.030) Urine Protein 1+ H (Negative) Urine Glucose (UA) Negative (Negative) (1) Anemia Anemia type: unspecified type Qualified Code(s): D64.9 - Anemia, unspecified
[2021-09-05] MEDS: BUTALBITAL/ACETAMIN/CAFFEINE TAB PO PRN (18:07)
[2021-09-05] MEDS: QUEtiapine FUMARATE 100 MG TABLET PO SCH (20:55)
[2021-09-05] MEDS ORDERED: Nursing to Pharmacy Communication SCH (23:45)
[2021-09-06] MEDS: SODIUM CHLORIDE 0.9% 1000ML 1,000 ML IV SCH ×2 (03:30→13:40)
[2021-09-06] MEDS: oxyCODONE/ACETAMINOPHEN 5mg/325mg TAB PO PRN ×4 (04:13→22:09)
[2021-09-06] MEDS: HEPARIN SOD 5,000 UNIT/0.5 ML VIAL SQ SCH ×3 (05:10→22:08)
[2021-09-06] MEDS: CALCIUM CARBONATE 1250MG TAB PO SCH (07:49)
[2021-09-06] MEDS: DULoxetine HCL 30 MG CAP PO SCH ×2 (07:49→22:06)
[2021-09-06] MEDS: MAGNESIUM CHLORIDE 64MG DELAYED REL TAB PO SCH ×2 (07:49→22:07)
[2021-09-06] MEDS: MULTIVITAMIN TAB PO SCH (07:49)
[2021-09-06] MEDS: NICOTINE 21 MG/24 HR TDSY TD SCH (07:49)
[2021-09-06 07:54] LABS: Hematocrit (blood only) 22.9 % (37-47); Hemoglobin 7.3 g/dL (12.0-16.0)
[2021-09-06 08:24] LABS: BUN Creatinine Ratio 21.3 (10-20); Calcium 6.9 mg/dl (8.5-10.1); Creatinine Clr Calc Pharmacy 43.8 ml/min; Est GFR (African American) 77.5 ml/min; Est GFR (Non-African American) 66.9 ml/min; Magnesium 1.4 mg/dl (1.7-2.4); Phosphorus 2.7 mg/dl (2.5-4.9)
--- NOTE | 2021-09-06 08:59 | Gastrointestinal Consultation ---
Date of Consultation September 06, 2021 Assessment & Plan (1) Gastrostomy tube in place: 56 year old female with complex medically history, surgically placed g- tube as unable to find window w/ axios stent to remnant stomach - she notes since g-tube placement she has had discomfort, infection, leakage and difficulty with using the tube. She tells me today she would prefer to have the tube removed instead of changed. Would recommends he discuss g-tube indication with her primary GI-nut team In the event tube is to removed/changed would ask general surgery management as this was placed by [facility] in [place] [facility] to sign off, discussed with attending. History of Present Illness Reason for Consultation: PEG check Requesting Physician: Lori Attending Physician: Gallo Sandoval MD History of Present Illness 56 year old female with complex past medical history, admitted w/ COVID, GI asked to evaluate for PEG tube discomfort. Pt was seen and evaluated, chart reviewed. Initially, PEG was attempted via Axios stent, no window was identified. Was evaluated by [facility] surgery ans was s/p laparoscopic remnant gastrostomy tube placement and repair of iatrogenic small bowel injury in 04/16. She notes she has had issues with her PEG tube since placement. Discomfort, leaking and difficulty with use. She tells me today she does not wish to have her PEG changed and wants her PEG tube removed if able. EUS 2020: Endosonographic images of the remnant stomach were unremarkable. A gastrogastrostomy was performed using a 20 mm Axios stent. EGD 2020: Normal esophagus. - Gastric bypass with a small-sized pouch. Gastrojejunal anastomosis characterized by healthy appearing mucosa. - Normal examined jejunum. - Normal remnant stomach. Due to inability to localize a site for safe percutaneous placement PEG was not completed. Allergies Allergy/AdvReac Type Severity Reaction Status Date / Time Penicillins Allergy Unknown ? REACTION Verified 09/03/21 16:29 Sulfa (Sulfonamide Allergy Unknown Unknown Verified 09/03/21 16:29 Antibiotics) reaction aspirin AdvReac Mild No an Verified 09/03/21 16:29 allergy- cannot take post-bypass surgery ragweed pollen AdvReac Mild swelling Verified 09/03/21 16:29 Home Medications Medication Instructions Recorded Confirmed Type ergocalciferol (vitamin D2) 1,250 50,000 unit PO WK #0 cap 11/26/13 09/03/21 History mcg (50,000 unit) capsule cyanocobalamin (vitamin B-12) 1 dose IM MONTHLY #0 06/11/14 09/03/21 History 1,000 mcg/mL injection solution diphenoxylate-atropine 2.5 1 tab PO QID PRN #0 tab 08/02/16 09/03/21 History mg-0.025 mg tablet (Lomotil) rizatriptan 10 mg tablet 10 mg PO DAILY PRN tab 11/06/18 09/03/21 History alprazolam 0.25 mg tablet 0.25 mg PO DAILY PRN 06/28/19 09/03/21 History vvvqwanmbd-arlbwmoartkgs-cwupaqsi 1 tab PO Q6H PRN 06/28/19 09/03/21 History 50 mg-325 mg-40 mg tablet calcium carbonate 500 mg calcium 1,000 mg PO DAILY 06/28/19 09/03/21 History (1,250 mg) tablet (Oysco-500) duloxetine 30 mg capsule,delayed 30 mg PO BID cap 10/29/19 09/03/21 History release ondansetron HCl 4 mg tablet 4 mg PO Q8H PRN 10/29/19 09/03/21 History (Zofran) acetaminophen 500 mg tablet 500 mg PO Q4H PRN 08/23/20 09/03/21 History multivitamin (Daily-Larissa) 1 tab PO QAM #30 tab 10/04/20 09/03/21 Rx gabapentin 300 mg capsule 300 mg PO TID 08/16/21 09/03/21 History oxycodone-acetaminophen 7.5 mg-325 0.5 tab PO Q8H PRN 09/03/21 09/03/21 History mg tablet quetiapine 100 mg tablet 100 mg PO DAILY 09/03/21 09/03/21 History tizanidine 4 mg tablet 2 mg PO DIRECTED PRN 09/03/21 09/03/21 History Patient History Medical History Anemia S/p 1 unit PRBCs while admitted 10/01/20 to 10/05/20 Copper deficiency Depression with anxiety Hyperparathyroidism Hypotension Admitted 09/15/20 and then again 10/01/20 Kidney stones Migraine headache Nausea at times PFO (patent foramen ovale) Per records Per cardio consultation 06/29/19= pt had previous ECHO 06/13/19 that showed "trace interatrial shunt and inferoseptal wall motion abnormality could not be excluded " Poor appetite at times Weight loss, unintentional Zinc poisoning Surgical History History of bowel diversion surgery History of cholecystectomy History of colonoscopy History of cystoscopy with stent placement 08/2020 History of esophagogastroduodenoscopy (EGD) History of gastric bypass (~1999) History of lithotripsy Hx of cardiac cath jul 01 2019. no stents Family History Mother Coronary heart disease Other No family history of adverse response to anesthesia Social History Smoking Status: Current every day smoker packs per day: 1; Cigarettes Per Day: PPD; Second Hand Exposure: No; Do You Dip or Chew Tobacco: No; Tobacco Cessation Education Requested by Patient: No Hx Alcohol Use: Yes Hx Substance Use: Yes Preferred Language: Palauan Communication Ability: Effective Visual Impairment: No Limitations Hearing Ability: Normal Orchid Worker Required: No Beliefs That Will Affect Care: None marital status: Current Living Situation: Alone current occupational status: disabled 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 assistive devices at bedside Review of Systems Review of Systems: All systems reviewed & are unremarkable except as noted in HPI & below Physical Exam Constitutional: WD/WN, vitals as above Respiratory: normal respiratory effort; no respiratory distress, no labored breathing and no retractions Cardiovascular: Rate/Rhythm: regular rate and regular rhythm Gastrointestinal (Abdomen): Inspection/Auscultation: normal bowel sounds Percussion/Palpation: abdomen soft; abdomen nontender and no ascites Gtube in place, pink, irritated tissue about 2 cm circumferential tube site Results & Data ([facility]) Vital Signs (Past 12 Hours) Vital Signs Temp Pulse Pulse Resp BP Pulse Ox 09/06/21 08:11 65 20 76/51 L 94 09/06/21 06:18 36.8 C 68 18 86/56 L 93 09/06/21 03:37 77 99/65 L 09/06/21 03:01 36.8 C 82 18 98/64 L 93 09/05/21 22:38 36.7 C 81 16 97/61 L 94 09/05/21 22:18 76 Laboratory Results 09/06/21 09/06/21 Range/Units 07:34 07:34 Hgb 7.3 L (12.0-16.0) g/dL Hct 22.9 L (37-47) % Sodium 135 L (136-145) mmol/L Potassium 4.0 (3.5-5.1) mmol/L Chloride 108 H (98-107) mmol/L Carbon Dioxide 24 (21-32) mmol/L Anion Gap 3 (3-11) BUN 20 (6-23) mg/dl Creatinine 0.94 (0.6-1.2) mg/dl Est Cr Clr Drug Dosing 43.8 ml/min Est GFR ( Amer) 77.5 ml/min Est GFR (Non-Af Amer) 66.9 ml/min BUN/Creatinine Ratio 21.3 H (10-20) Glucose 101 H (70-99(Fasting)) mg/dl Calcium 6.9 L (8.5-10.1) mg/dl Phosphorus 2.7 (2.5-4.9) mg/dl Magnesium 1.4 L (1.7-2.4) mg/dl Triglycerides 100 (0-150) mg/dl
[2021-09-06] MEDS ORDERED: TPN/PPN CONSULT PHARMACY PRN (09:00)
[2021-09-06] MEDS: GABAPENTIN 300 MG CAP PO SCH ×3 (09:04→22:06)
[2021-09-06] MEDS ORDERED: SODIUM CHLORIDE 0.9% 250 ML IV PRN (09:04)
[2021-09-06] MEDS ORDERED: STAT IV STA (09:18)
[2021-09-06] MEDS ORDERED: CALCIUM GLUCONATE 10% 2,000 MG in DEXTROSE 5% 50 ML IV ONE (09:45)
[2021-09-06] MEDS: MAGNESIUM SULFATE / D5W 1 GM/100 ML BAG IV SCH ×2 (10:48→13:10)
[2021-09-06] MEDS: DOXYCYCLINE HYCLATE 100 MG CAP PO SCH ×2 (11:16→22:08)
--- NOTE | 2021-09-06 11:28 | CT Scan Report ---
ABDOMEN AND PELVIS CT WITHOUT CONTRAST CT DOSE: 266.47 mGy.cm HISTORY: Generalized abdominal pain. TECHNIQUE: Multiaxial CT images of the abdomen and pelvis were performed without contrast. A dose lo wering technique was utilized adhering to the principles of ALARA. COMPARISON STUDY: Abdomen and pelvis CT 09/19/2020. FINDINGS: There are patchy groundglass airspace opacities consistent with a viral pneumonia. Partial opacities of the left lower lobe bronchi with consolidative airspace opacities within the left lower lobe. This could also be due to the bilateral pneumonia or an aspiration pneumonia. There is a trace left pleural effusion. No pneumoperitoneum. No pneumatosis. S-shaped scoliosis of the thoracolumbar s pine is again noted. No fractures within the visualized osseous structures. There is a trace right pl eural effusion. Moderate body wall edema. There is been interval placement of percutaneous gastrostom y tube into the excluded portion of the stomach. The patient is status post gastric bypass. The exclu ded portion of the stomach and gastrojejunostomy are connected through a large stent which appears in good position. Prior cholecystectomy. There are 2 subcentimeter hypodense lesions within the right h epatic lobe, unchanged. These favor cysts given the stability. The unenhanced pancreas, spleen, and a drenal glands are unremarkable. Multiple punctate bilateral renal calculi. Stable bilateral renal hyp odense lesions. These are incompletely characterized on this noncontrast study but statistically repr esent cysts. A right ureteral stent appears in good position. There is a 3 mm stone within the mid ri ght ureter on image 229 which is adjacent to the ureteral stent. There is an additional 1 mm ureteral stone within the mid right ureter on image 235. There is mild right urothelial thickening and periur eteral edema. There is mild bilateral perinephric edema. Mild right hydronephrosis identified. Questi onable bladder wall thickening versus a small amount of debris within the right posterior bladder. Th is is best seen image 353. Suboptimal evaluation for bowel pathology due to the lack of intravenous a nd oral contrast. However, there is no definite bowel wall thickening or obstruction. IMPRESSION: 1. Mild right hydronephrosis. A right ureteral stent is in good position. There are 2 small stones wi thin the mid right ureter with the largest measuring 3 mm. 2. Bilateral nephrolithiasis. 3. Questionable bladder wall thickening versus a small amount of debris within the right posterior bl adder. This could be confirmed with follow-up cystoscopy or CT urogram once the patient's ureteral st ent has been removed. 4. No bowel wall thickening or obstruction. 5. Postoperative changes as described above. 6. Trace bilateral pleural effusions. 7. Ground glass airspace opacities within the lung bases likely represents a viral pneumonia. There i s also partial opacification the left lower lobe bronchi and consolidation within the left lower lobe which could be due to the viral pneumonia or a superimposed aspiration pneumonia. ACT 112: Negative or not required by law. Electronically signed by: Armando Burton M.D. 09/06/2021 11:11 AM
--- NOTE | 2021-09-06 13:10 | Surgery Consultation ---
Date of Consultation September 06, 2021 Assessment & Plan (1) Gastrostomy tube in place: Wound care nurses have been consulted Can use zinc oxide or stoma skin paste to try to protect the skin There is no plan to surgically remove this tube at our institution Placement was somewhat complicated and I do feel it should be performed By the physicians in [place] A contrast study can be performed to assess placement in the stomach It is unlikely she needs to be transferred unless the situation worsens but she should be seen In the next couple weeks if possible History of Present Illness Attending Physician: Gallo Sandoval MD History of Present Illness 56-year-old female who has a gastrostomy tube in place and wishes it to be removed She has had some problems with leakage and excoriation of the skin She had it placed March 2022 in [place] by laparoscopic surgery She has had a history of gastric bypass-placement was somewhat difficult and there was a small bowel injury during the procedure which was repaired I believe this was done by the bariatric surgery service secondary to malnutrition Apparently gastroenterology did not feel it was safe to try to place a PEG She has been admitted to the hospital with Covid She also has had an abdominoplasty Allergies Allergy/AdvReac Type Severity Reaction Status Date / Time Penicillins Allergy Unknown ? REACTION Verified 09/03/21 16:29 Sulfa (Sulfonamide Allergy Unknown Unknown Verified 09/03/21 16:29 Antibiotics) reaction aspirin AdvReac Mild No an Verified 09/03/21 16:29 allergy- cannot take post-bypass surgery ragweed pollen AdvReac Mild swelling Verified 09/03/21 16:29 Home Medications Medication Instructions Recorded Confirmed Type ergocalciferol (vitamin D2) 1,250 50,000 unit PO WK #0 cap 11/26/13 09/03/21 History mcg (50,000 unit) capsule cyanocobalamin (vitamin B-12) 1 dose IM MONTHLY #0 06/11/14 09/03/21 History 1,000 mcg/mL injection solution diphenoxylate-atropine 2.5 1 tab PO QID PRN #0 tab 08/02/16 09/03/21 History mg-0.025 mg tablet (Lomotil) rizatriptan 10 mg tablet 10 mg PO DAILY PRN tab 11/06/18 09/03/21 History alprazolam 0.25 mg tablet 0.25 mg PO DAILY PRN 06/28/19 09/03/21 History hrcamzqvja-ezldggqwrqxol-secazeyk 1 tab PO Q6H PRN 06/28/19 09/03/21 History 50 mg-325 mg-40 mg tablet calcium carbonate 500 mg calcium 1,000 mg PO DAILY 06/28/19 09/03/21 History (1,250 mg) tablet (Oysco-500) duloxetine 30 mg capsule,delayed 30 mg PO BID cap 10/29/19 09/03/21 History release ondansetron HCl 4 mg tablet 4 mg PO Q8H PRN 10/29/19 09/03/21 History (Zofran) acetaminophen 500 mg tablet 500 mg PO Q4H PRN 08/23/20 09/03/21 History multivitamin (Daily-Larissa) 1 tab PO QAM #30 tab 10/04/20 09/03/21 Rx gabapentin 300 mg capsule 300 mg PO TID 08/16/21 09/03/21 History oxycodone-acetaminophen 7.5 mg-325 0.5 tab PO Q8H PRN 09/03/21 09/03/21 History mg tablet quetiapine 100 mg tablet 100 mg PO DAILY 09/03/21 09/03/21 History tizanidine 4 mg tablet 2 mg PO DIRECTED PRN 09/03/21 09/03/21 History Patient History Medical History Anemia S/p 1 unit PRBCs while admitted 10/01/20 to 10/05/20 Copper deficiency Depression with anxiety Hyperparathyroidism Hypotension Admitted 09/15/20 and then again 10/01/20 Kidney stones Migraine headache Nausea at times PFO (patent foramen ovale) Per records Per cardio consultation 06/29/19= pt had previous ECHO 06/13/19 that showed "trace interatrial shunt and inferoseptal wall motion abnormality could not be excluded " Poor appetite at times Weight loss, unintentional Zinc poisoning Surgical History History of bowel diversion surgery History of cholecystectomy History of colonoscopy History of cystoscopy with stent placement 08/2020 History of esophagogastroduodenoscopy (EGD) History of gastric bypass (~1999) History of lithotripsy Hx of cardiac cath jul 01 2019. no stents Family History Mother Coronary heart disease Other No family history of adverse response to anesthesia Social History Smoking Status: Current every day smoker packs per day: 1; Cigarettes Per Day: PPD; Second Hand Exposure: No; Do You Dip or Chew Tobacco: No; Tobacco Cessation Education Requested by Patient: No Hx Alcohol Use: Yes Hx Substance Use: Yes Preferred Language: Uzbek Communication Ability: Effective Visual Impairment: No Limitations Hearing Ability: Normal Braid Pattern Setter Required: No Beliefs That Will Affect Care: None marital status: Current Living Situation: Alone current occupational status: disabled 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 assistive devices at bedside Results & Data ([facility]) Vital Signs (Past 12 Hours) Vital Signs Temp Pulse Resp BP Pulse Ox 09/06/21 11:18 36.4 C L 56 L 18 100/62 95 09/06/21 08:11 65 20 76/51 L 94 09/06/21 06:18 36.8 C 68 18 86/56 L 93 09/06/21 03:37 77 99/65 L 09/06/21 03:01 36.8 C 82 18 98/64 L 93 PG Care Time/CCT Total # of Minutes Spent Total Time Spent with Patient: Total time spent is greater than 50% in coordination of care (as documented) at patient's floor/unit and/or counseling patient: Coding Level of Care Code None Diagnoses Gastrostomy tube in place Z93.1
[2021-09-06 14:22] LABS: Hemoglobin 7.2 g/dL (12.0-16.0)
--- NOTE | 2021-09-06 15:03 | Hospitalist Progress Note ---
Date of Service September 06, 2021 Assessment & Plan (1) Acute kidney injury: Plan: ROBINSON on CKD III Metabolic Acidosis Prerenal due to poor oral intake secondary to PEG tube issues Cr: 1.7>>1.34>1.06>0.94 Avoid nephro toxic agents Decrease IV fluids Monitor renal function (2) Acute dehydration: Plan: Management as above (3) Irritation around percutaneous endoscopic gastrostomy (PEG) tube site: Plan: PEG tube site possible Infection -POA Patient states having tenderness with PEG tube use Empirically started on doxycycline, Ceftriaxone Blood Cx: No growth to date Appreciate GI and Surgery Input Pain control Wound Care consulted Needs follow up with surgery in [place] upon discharge as outpatient (4) Hypomagnesemia: Plan: Hypocalcemia Hypophosphatemia Replete electrolytes as needed Monitor (5) COVID-19 virus infection: Plan: COVID 19 Infection Patient is Vaccinated for COVID CXR:No acute cardiopulmonary disease Procalcitonin < 0.05 CRP 4.26 Blood Cultures negative to date Isolation precautions--Airborne/Contact DVT prophylaxis on Heparin SQ Saturating well on room air Abnormal UA Rule out UTI Urine Culture pending On Rocephin empirically (6) Migraine headache: Plan: Stable (7) Depression with anxiety: Plan: Continue home meds (8) Malabsorption: Plan: H/O gastric bypass surgery Inspector Canned Food Reconditioning consulted (9) Severe malnutrition: Plan: Severe protein calorie malnutrition BMI 20 Inspector Canned Food Reconditioning Consulted (10) Anemia: Plan: Hb drop likely dilutional due to IV fluids No obvious bleeding issues Monitor CBC Plan: DVT Px: Heparin SQ Code Status Full Code Admission and Anticipated Discharge Date Admission Date: September 04, 2021 Subjective Patient is seen and examined at bedside Reports PEG tube site pain Less discharge today Discussed with GI and Surgery No significant cough Denies any chest pain, shortness of breath, nausea, diarrhea Patient prefers G tube be removed Review of Systems Review of Systems: All systems reviewed & are unremarkable except as noted in Subjective Physical Exam Physical Exam: Physical Exam: Vitals signs as noted above General Appearance:Thin, Frail, no apparent distress Head: normocephalic, Atraumatic Eyes: normal inspection, EOMI Neck: supple, Trachea midline Respiratory/Chest: Decreased breath sounds, CTA, No accessory muscle use Cardiovascular: S1, S2, No murmur Abdomen/GI:Soft, + PEG tube, mild tender, erythema, Bowel sounds present Extremities/Musculoskeletal:normal inspection, no edema Neurologic/Psych:AAOX3, grossly no focal neurological deficits Skin: normal color, warm Results & Data Results & Data ([facility]) Vital Signs (Past 12 Hours) Vital Signs Temp Pulse Resp BP Pulse Ox 09/06/21 11:18 36.4 C L 56 L 18 100/62 95 09/06/21 08:11 65 20 76/51 L 94 09/06/21 06:18 36.8 C 68 18 86/56 L 93 09/06/21 03:37 77 99/65 L 09/06/21 03:01 36.8 C 82 18 98/64 L 93 Laboratory Results Short CBC 09/06/21 09/06/21 Range/Units 07:34 14:12 Hgb 7.3 L 7.2 L (12.0-16.0) g/dL Hct 22.9 L 22.0 L (37-47) % BMP 09/06/21 07:34 Sodium 135 L Potassium 4.0 Chloride 108 H Carbon Dioxide 24 BUN 20 Creatinine 0.94 Glucose 101 H Calcium 6.9 L (1) Anemia Anemia type: unspecified type Qualified Code(s): D64.9 - Anemia, unspecified
[2021-09-06] MEDS ORDERED: DEXTROSE 10% 1,000 ML IV PRN (16:00)
[2021-09-06] MEDS: cefTRIAXone SODIUM 1,000 MG in DEXTROSE 5% 50 ML IV SCH (16:19)
--- NOTE | 2021-09-06 17:07 | XRay Report ---
KUB/GASTROSTOMY TUBE INJECTION CLINICAL HISTORY: G-tube position. COMPARISON STUDY: CT of the abdomen and pelvis September 06, 2021. PROCEDURE AND FINDINGS: Initially, a diesel powerplant mechanic KUB was obtained. This demonstrated a gastrostomy tube wit hin the stomach. 50 cc of Optiray 300 was then injected through the gastrostomy tube with opacificati on of the stomach. No extraluminal contrast was noted. Positioning is adequate. Endoscopic stent with in the stomach is better depicted on the CT performed earlier today. Right ureteral stent is in place . There are cholecystectomy clips. IMPRESSION: Appropriately positioned gastrostomy tube. No contrast extravasation. ACT 112: Negative or not required by law. Electronically signed by: Serjio Reese M.D. 09/06/2021 4:25 PM
[2021-09-06] MEDS: QUEtiapine FUMARATE 100 MG TABLET PO SCH (22:08)
[2021-09-06] MEDS: BUTALBITAL/ACETAMIN/CAFFEINE TAB PO PRN (22:09)
[2021-09-07] MEDS: HEPARIN SOD 5,000 UNIT/0.5 ML VIAL SQ SCH ×4 (05:43→20:36)
[2021-09-07 07:13] LABS: Hematocrit (blood only) 23.8 % (37-47); Hemoglobin 7.7 g/dL (12.0-16.0)
[2021-09-07 07:44] LABS: BUN Creatinine Ratio 20.6 (10-20); Calcium 7.6 mg/dl (8.5-10.1); Creatinine Clr Calc Pharmacy 39.9 ml/min; Est GFR (African American) 70.2 ml/min; Est GFR (Non-African American) 60.6 ml/min; Magnesium 1.6 mg/dl (1.7-2.4); Potassium 4.1 mmol/L (3.5-5.1)
[2021-09-07] MEDS: DULoxetine HCL 30 MG CAP PO SCH ×2 (07:52→20:34)
[2021-09-07] MEDS: CALCIUM CARBONATE 1250MG TAB PO SCH (07:53)
[2021-09-07] MEDS: MAGNESIUM CHLORIDE 64MG DELAYED REL TAB PO SCH ×2 (07:53→20:35)
[2021-09-07] MEDS: NICOTINE 21 MG/24 HR TDSY TD SCH (07:53)
[2021-09-07] MEDS: MULTIVITAMIN TAB PO SCH (07:53)
[2021-09-07] MEDS: GABAPENTIN 300 MG CAP PO SCH ×3 (07:53→20:34)
[2021-09-07] MEDS: oxyCODONE/ACETAMINOPHEN 5mg/325mg TAB PO PRN ×2 (08:02→13:46)
[2021-09-07] MEDS ORDERED: STAT IV STA (09:27)
[2021-09-07] MEDS ORDERED: CALCIUM GLUCONATE 10% 1,000 MG in DEXTROSE 5% 50 ML IV ONE (09:45)
[2021-09-07] MEDS ORDERED: MAGNESIUM SULFATE / D5W 1 GM/100 ML BAG IV ONE (10:00)
[2021-09-07] MEDS: DOXYCYCLINE HYCLATE 100 MG CAP PO SCH (10:42)
[2021-09-07] MEDS: CHOLECALCIFEROL 1,000 UNITS 25 MCG TAB PO SCH (10:43)
[2021-09-07] MEDS: BUTALBITAL/ACETAMIN/CAFFEINE TAB PO PRN (13:46)
[2021-09-07] MEDS: cefTRIAXone SODIUM 1,000 MG in DEXTROSE 5% 50 ML IV SCH (13:47)
[2021-09-07] MEDS ORDERED: SODIUM CHLORIDE 0.9% 1000ML 1,000 ML IV ONE (14:32)
--- NOTE | 2021-09-07 14:36 | Hospitalist Progress Note ---
Date of Service September 07, 2021 Assessment & Plan (1) Acute kidney injury: Plan: ROBINSON on CKD III Metabolic Acidosis Prerenal due to poor oral intake secondary to PEG tube issues Cr: 1.7>>1.34>1.0 Avoid nephro toxic agents Received IV fluids Monitor renal function (2) Acute dehydration: Plan: Management as above (3) Irritation around percutaneous endoscopic gastrostomy (PEG) tube site: Plan: PEG tube site possible Infection -POA Patient states having tenderness with PEG tube use Empirically started on doxycycline, Ceftriaxone Blood Cx: No growth to date Appreciate GI and Surgery Input Pain control Wound Care consulted Needs follow up with surgery in [place] upon discharge as outpatient Continue ceftriaxone Change doxycycline to daptomycin given UTI as well. (4) Hypomagnesemia: Plan: Hypocalcemia Hypophosphatemia Replete electrolytes as needed Monitor (5) COVID-19 virus infection: Plan: COVID 19 Infection Patient is Vaccinated for COVID CXR:No acute cardiopulmonary disease Procalcitonin < 0.05 CRP 4.26 Blood Cultures negative to date Isolation precautions--Airborne/Contact DVT prophylaxis on Heparin SQ Saturating well on room air UTI Urine Culture grew Enterococcus Faecalis Will start on Daptomycin today (6) Migraine headache: Plan: Stable (7) Depression with anxiety: Plan: Continue home meds (8) Malabsorption: Plan: H/O gastric bypass surgery Machine Milker consulted (9) Severe malnutrition: Plan: Severe protein calorie malnutrition BMI 20 Machine Milker Consulted (10) Anemia: Plan: Hb drop likely dilutional due to IV fluids No obvious bleeding issues Monitor CBC Plan: DVT Px: Heparin SQ Code Status Full Code Admission and Anticipated Discharge Date Admission Date: September 04, 2021 Subjective Patient is seen and examined at bedside States having dizziness Also reports intermittent dysuria Less cough and PEG tube site pain Denies any chest pain, shortness of breath, nausea, diarrhea Offers no other complaints Review of Systems Review of Systems: All systems reviewed & are unremarkable except as noted in Subjective Physical Exam Physical Exam: Physical Exam: Vitals signs as noted above General Appearance:Thin, Frail, no apparent distress Head: normocephalic, Atraumatic Eyes: normal inspection, EOMI Neck: supple, Trachea midline Respiratory/Chest: Decreased breath sounds, CTA, No accessory muscle use Cardiovascular: S1, S2, No murmur Abdomen/GI:Soft, + PEG tube, mild tender, erythema, Bowel sounds present Extremities/Musculoskeletal:normal inspection, no edema Neurologic/Psych:AAOX3, grossly no focal neurological deficits Skin: normal color, warm Results & Data Results & Data ([facility]) Vital Signs (Past 12 Hours) Vital Signs Temp Pulse Pulse Resp BP Pulse Ox 09/07/21 07:58 36.5 C 56 L 16 91/62 L 95 09/07/21 07:50 73 09/07/21 04:00 36.4 C L 62 18 98/62 L 94 Laboratory Results Short CBC 09/07/21 Range/Units 06:38 Hgb 7.7 L (12.0-16.0) g/dL Hct 23.8 L (37-47) % BMP 09/07/21 06:38 Sodium 134 L Potassium 4.1 Chloride 106 Carbon Dioxide 23 BUN 21 Creatinine 1.02 Glucose 89 Calcium 7.6 L (1) Anemia Anemia type: unspecified type Qualified Code(s): D64.9 - Anemia, unspecified
[2021-09-07] MEDS: DAPTOmycin 250 MG in SYRINGE 0 ML IV SCH (15:44)
[2021-09-07] MEDS: QUEtiapine FUMARATE 100 MG TABLET PO SCH (20:35)
[2021-09-08] MEDS: oxyCODONE/ACETAMINOPHEN 5mg/325mg TAB PO PRN (03:07)
[2021-09-08] MEDS: HEPARIN SOD 5,000 UNIT/0.5 ML VIAL SQ SCH ×3 (05:09→21:56)
[2021-09-08 06:21] LABS: Hematocrit (blood only) 23.3 % (37-47); Hemoglobin 7.5 g/dL (12.0-16.0); Mean Corpuscular Hemoglobin 29.8 pg (25-34); Mean Corpuscular Hgb Conc 32.2 g/dL (32-36); Mean Corpuscular Volume 92.5 fL (80-100); Mean Platelet Volume 11.3 fL (7.4-10.4); Platelet Count 333 K/uL (130-400); RDW Coefficient of Variation 14.9 % (11.5-14.5); RDW Standard Deviation 51.2 fL (36.4-46.3); Red Blood Count 2.52 M/uL (4.2-5.4); White Blood Count 9.98 K/uL (4.8-10.8)
[2021-09-08 06:53] LABS: BUN Creatinine Ratio 19.8 (10-20); C Reactive Protein 3.93 mg/dl (0-0.5); Creatinine Clr Calc Pharmacy 40.4 ml/min; Est GFR (African American) 71.1 ml/min; Est GFR (Non-African American) 61.3 ml/min; Magnesium 1.5 mg/dl (1.7-2.4); Potassium 3.9 mmol/L (3.5-5.1)
[2021-09-08] MEDS: MULTIVITAMIN TAB PO SCH (08:03)
[2021-09-08] MEDS: CALCIUM CARBONATE 1250MG TAB PO SCH (08:03)
[2021-09-08] MEDS: GABAPENTIN 300 MG CAP PO SCH ×3 (08:04→21:55)
[2021-09-08] MEDS: NICOTINE 21 MG/24 HR TDSY TD SCH (08:04)
[2021-09-08] MEDS: MAGNESIUM CHLORIDE 64MG DELAYED REL TAB PO SCH ×2 (08:04→21:54)
[2021-09-08] MEDS: DULoxetine HCL 30 MG CAP PO SCH ×2 (08:04→21:55)
[2021-09-08] MEDS: CHOLECALCIFEROL 1,000 UNITS 25 MCG TAB PO SCH (08:05)
[2021-09-08] MEDS: MAGNESIUM SULFATE / D5W 1 GM/100 ML BAG IV SCH ×2 (10:11→12:22)
--- NOTE | 2021-09-08 10:35 | Hospitalist Progress Note ---
Date of Service September 08, 2021 Assessment & Plan (1) Acute kidney injury: Plan: ROBINSON on CKD III Metabolic Acidosis Prerenal due to poor oral intake secondary to PEG tube issues Cr: 1.7>>1.34>1.0 Received IV fluids ROBINSON resolved (2) Acute dehydration: Plan: As above (3) Irritation around percutaneous endoscopic gastrostomy (PEG) tube site: Plan: PEG tube site, possible Infection -POA Patient states having tenderness with PEG tube use Was empirically started on doxycycline, Ceftriaxone Blood Cx: No growth to date Appreciate GI and Surgery Input Pain control Surgery and GI recommendations noted Due to reported concerns as above, stop percocet for now (4) Hypomagnesemia: Plan: Hypocalcemia Hypophosphatemia Vitamin D deficiency. 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 Reports dysuria is improving Denied any diarrhea or constipation Denied chest pain, shortness of breath Reports mild cough Reports some weakness RN reported she was really drowsy after getting percocet overnight and visual hallucination on waking up this morning Patient acknowledged these. No hallucinations at this time Physical Exam Constitutional: + well hydrated; no acute distress Thin Eyes: PERRL, conjunctivae normal, anicteric sclerae ENMT: external ear and nose normal, oropharynx normal Respiratory: normal respiratory effort, lungs clear to auscultation Cardiovascular: Rate/Rhythm: regular rate and regular rhythm S1 S2 Gastrointestinal (Abdomen): G tube in situ. Soft, nontender, normal bowel sounds Musculoskeletal: no cyanosis or clubbing, extremities motor strength 5/5 No pedal edema Neurologic: PERRL, EOMI, accommodation nl, no face palsy, no dysarthria Psychiatric: A+Ox3, euthymic affect Results & Data Results & Data ([facility]) Vital Signs (Past 12 Hours) Vital Signs Temp Pulse Pulse Resp BP Pulse Ox 09/08/21 08:01 36.5 C 70 16 89/60 L 92 09/08/21 04:48 36.9 C 60 18 120/75 95 09/07/21 23:42 63 Laboratory Results Abnormal lab results 09/08/21 09/08/21 Range/Units 05:59 05:59 RBC 2.52 L (4.2-5.4) M/uL Hgb 7.5 L (12.0-16.0) g/dL Hct 23.3 L (37-47) % RDW Std Deviation 51.2 H (36.4-46.3) fL RDW Coeff of Mike 14.9 H (11.5-14.5) % MPV 11.3 H (7.4-10.4) fL Sodium 133 L (136-145) mmol/L Glucose 108 H (70-99(Fasting)) mg/dl Calcium 8.0 L (8.5-10.1) mg/dl Magnesium 1.5 L (1.7-2.4) mg/dl C-Reactive Protein 3.93 H (0-0.5) mg/dl (1) Anemia Anemia type: unspecified type Qualified Code(s): D64.9 - Anemia, unspecified
[2021-09-08] MEDS: RIZATRIPTAN BENZOATE 10 MG TAB PO PRN (11:44)
[2021-09-08] MEDS: DAPTOmycin 250 MG in SYRINGE 0 ML IV SCH (14:22)
[2021-09-08] MEDS: cefTRIAXone SODIUM 1,000 MG in DEXTROSE 5% 50 ML IV SCH (15:07)
[2021-09-08] MEDS: BUTALBITAL/ACETAMIN/CAFFEINE TAB PO PRN (21:54)
[2021-09-08] MEDS: QUEtiapine FUMARATE 100 MG TABLET PO SCH (21:55)
[2021-09-09] MEDS: BUTALBITAL/ACETAMIN/CAFFEINE TAB PO PRN ×3 (03:41→23:03)
[2021-09-09] MEDS: HEPARIN SOD 5,000 UNIT/0.5 ML VIAL SQ SCH ×3 (03:42→21:57)
[2021-09-09 09:19] LABS: Hematocrit (blood only) 24.3 % (37-47); Hemoglobin 7.9 g/dL (12.0-16.0); Mean Corpuscular Hgb Conc 32.5 g/dL (32-36); Mean Corpuscular Volume 92.4 fL (80-100); Mean Platelet Volume 11.4 fL (7.4-10.4); Platelet Count 350 K/uL (130-400); RDW Coefficient of Variation 14.5 % (11.5-14.5); RDW Standard Deviation 49.1 fL (36.4-46.3); Red Blood Count 2.63 M/uL (4.2-5.4); White Blood Count 7.21 K/uL (4.8-10.8)
[2021-09-09 09:39] LABS: Calcium 7.9 mg/dl (8.5-10.1); Creatinine Clr Calc Pharmacy 33.2 ml/min; Est GFR (African American) 58.3 ml/min; Est GFR (Non-African American) 50.3 ml/min; Magnesium 1.7 mg/dl (1.7-2.4); Potassium 3.8 mmol/L (3.5-5.1)
[2021-09-09] MEDS: CALCIUM CARBONATE 1250MG TAB PO SCH (09:52)
[2021-09-09] MEDS: MAGNESIUM CHLORIDE 64MG DELAYED REL TAB PO SCH ×2 (09:52→21:55)
[2021-09-09] MEDS: DULoxetine HCL 30 MG CAP PO SCH ×2 (09:52→21:56)
[2021-09-09] MEDS: CHOLECALCIFEROL 1,000 UNITS 25 MCG TAB PO SCH (09:52)
[2021-09-09] MEDS: MULTIVITAMIN TAB PO SCH (09:53)
[2021-09-09] MEDS: GABAPENTIN 300 MG CAP PO SCH ×3 (09:53→21:55)
[2021-09-09] MEDS: NICOTINE 21 MG/24 HR TDSY TD SCH (09:54)
[2021-09-09] MEDS ORDERED: POLYETHYLENE (MIRALAX) 17 GM PACK PO ONE (10:28)
--- NOTE | 2021-09-09 10:36 | Hospitalist Progress Note ---
Date of Service September 09, 2021 Assessment & Plan (1) Acute kidney injury: Plan: ROBINSON on CKD III Metabolic Acidosis Prerenal due to poor oral intake secondary to PEG tube issues Cr: 1.7>>1.34>1.19 Received IV fluids ROBINSON resolved (2) Acute dehydration: Plan: As above (3) Irritation around percutaneous endoscopic gastrostomy (PEG) tube site: Plan: PEG tube site, possible Infection -POA Patient states having tenderness with PEG tube use Was empirically started on doxycycline, Ceftriaxone Blood Cx: No growth to date Appreciate GI and Surgery Input Pain control Surgery and GI recommendations noted (4) Hypomagnesemia: Plan: Hypocalcemia Hypophosphatemia Vitamin D deficiency. 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 Patient reports she is able to get around Bowel regimen for constipation Was bradycardic this morning. EKG show sinus bradycardia. Old Echo/cardiac cath reviewed. Monitor Plan to dc tomorrow DVT Px: Heparin SQ Code Status Full Code Admission and Anticipated Discharge Date Admission Date: September 04, 2021 Subjective Patient seen and examined Patient reports generalized weakness Reports G tube site pain is markedly improved Reports some headache. Denied dizziness Denied congestion, sore throat Reports dry cough. Denied chest pain or shortness of breath Reports constipation. No dysuria today. Denied freq, urgency RN reported patient had some visual hallucinations on waking up. Patient reported she was having a vivid dream and ascribed this to the even RN reported. Has not had any since Physical Exam Constitutional: + well hydrated; no acute distress Eyes: PERRL, conjunctivae normal, anicteric sclerae ENMT: external ear and nose normal, oropharynx normal Respiratory: normal respiratory effort, lungs clear to auscultation Cardiovascular: Rate/Rhythm: regular rhythm and + bradycardic S1 S2 Gastrointestinal (Abdomen): normal bowel sounds, soft, nontender, no hepatosplenomegaly G tube in situ Musculoskeletal: no cyanosis or clubbing, extremities motor strength 5/5 Neurologic: PERRL, EOMI, accommodation nl, no face palsy, no dysarthria Psychiatric: A+Ox3, euthymic affect Results & Data Results & Data ([facility]) Vital Signs (Past 12 Hours) Vital Signs Temp Pulse Pulse Resp BP Pulse Ox 09/09/21 08:04 36.5 C 49 L 18 90/59 L 94 09/09/21 07:32 48 L 09/09/21 03:44 37 C 52 L 16 119/71 93 09/09/21 00:00 53 L 09/08/21 23:07 37.0 C 53 L 16 139/80 93 Laboratory Results Abnormal lab results 09/06/21 09/09/21 09/09/21 Range/Units 09:36 08:52 08:52 RBC 2.63 L (4.2-5.4) M/uL Hgb 7.9 L (12.0-16.0) g/dL Hct 24.3 L (37-47) % RDW Std Deviation 49.1 H (36.4-46.3) fL MPV 11.4 H (7.4-10.4) fL Sodium 135 L (136-145) mmol/L Glucose 148 H (70-99(Fasting)) mg/dl Calcium 7.9 L (8.5-10.1) mg/dl Total Creatine Kinase 25 L (26-192) U/L Crossmatch See Detail (1) Anemia Anemia type: unspecified type Qualified Code(s): D64.9 - Anemia, unspecified
[2021-09-09] MEDS ORDERED: MAGNESIUM SULFATE / D5W 1 GM/100 ML BAG IV ONE (11:00)
[2021-09-09] MEDS: DOCUSATE SODIUM/SENNA 50/8.6MG TAB PO SCH (11:46)
[2021-09-09] MEDS: cefTRIAXone SODIUM 1,000 MG in DEXTROSE 5% 50 ML IV SCH (13:48)
[2021-09-09] MEDS: RIZATRIPTAN BENZOATE 10 MG TAB PO PRN (14:39)
[2021-09-09] MEDS: DAPTOmycin 250 MG in SYRINGE 0 ML IV SCH (14:40)
[2021-09-09] MEDS: QUEtiapine FUMARATE 100 MG TABLET PO SCH (21:55)
[2021-09-10] MEDS: HEPARIN SOD 5,000 UNIT/0.5 ML VIAL SQ SCH ×2 (05:43→13:41)
[2021-09-10] MEDS: BUTALBITAL/ACETAMIN/CAFFEINE TAB PO PRN ×2 (05:43→14:00)
[2021-09-10] MEDS: DOCUSATE SODIUM/SENNA 50/8.6MG TAB PO SCH (08:39)
[2021-09-10] MEDS: GABAPENTIN 300 MG CAP PO SCH ×2 (08:40→14:00)
[2021-09-10] MEDS: CALCIUM CARBONATE 1250MG TAB PO SCH (08:40)
[2021-09-10] MEDS: CHOLECALCIFEROL 1,000 UNITS 25 MCG TAB PO SCH (08:41)
[2021-09-10] MEDS: MULTIVITAMIN TAB PO SCH (08:41)
[2021-09-10] MEDS: MAGNESIUM CHLORIDE 64MG DELAYED REL TAB PO SCH (08:41)
[2021-09-10] MEDS: DULoxetine HCL 30 MG CAP PO SCH (08:41)
[2021-09-10] MEDS: NICOTINE 21 MG/24 HR TDSY TD SCH (08:42)
[2021-09-10 09:08] LABS: Calcium 7.8 mg/dl (8.5-10.1); Creatinine Clr Calc Pharmacy 32.9 ml/min; Est GFR (African American) 58.3 ml/min; Est GFR (Non-African American) 50.3 ml/min; Magnesium 1.9 mg/dl (1.7-2.4); Phosphorus 2.9 mg/dl (2.5-4.9); Potassium 4.2 mmol/L (3.5-5.1)
[2021-09-10] MEDS: RIZATRIPTAN BENZOATE 10 MG TAB PO PRN (09:43)
--- NOTE | 2021-09-10 15:14 | Discharge Summary ---
Date of Service September 10, 2021 Admission HPI Per Admitting Provider This is a 56 y/o female with a complicated PMH including prior gastric bypass surgery, severe PCM, depression, PAULA, copper deficiency, CKD3a, B12 deficiency, migraine, demyelinating disease of SUPERINTENDENT OPERATING, hyperparathyroidism, and PFO with atrial septal aneurysm who presents to the ED today with increasing issues with her PEG tube, weakness, fatigue, and TOBIN. Pt underwent open gastric bypass in 2000, abdominoplasty in 2002, surgery for "twisting of bowels" in 2004 that followed by surgery to remove a retained object in the abdomen. Feeding tube placed in gastric remnant in 2013 for worsening malnutrition. 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 PEG placement attempted in December 2020 but unsuccessful. Axios was able to be placed successfully in December. PEG placed surgically in gastric remnant in early Mar 2021. Has been on TPN due to limited ability to maintain her nutrition via the gut. 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 She has had continued issues with pain at the PEG site since last fall. She was treated for a cellulitis at the site in Jun 2021 with doxycycline. She is receiving nutrition via TPN, TF, and by mouth with goal to eventually wean off TPN. PEG tube was changed to Martin-Mcfadden tube in Jul 2021. Creatinine in January 2021 was 1.0 but has been trending up since then. Has been referred to nephrology for outpatient evaluation. She notes that she has not been feeling well over the last week. She has had chills but no fevers - temp has been running lower than usual. Soft stools Weds and Th but better today. She has also noted TOBIN but breathing better at rest. Very fatigued, sleeping more, no motivation to do anything. Increased nausea over the last week but pt attributed to taking Aleve for the PEG tube site pain. Has noted a SMALLWOOD but no dizziness. Received the COVID vaccine x3 with last dose Apr/May (unsure of exact date). Currently, pt is very frustrated with the ongoing pain and issues with the PEG tube and would like to discuss having it removed. Admission Exam Per Admitting Provider Constitutional: + thin and + frail appearing; no acute d istress Eyes: + anicteric sclerae Neck: trachea midline Respiratory: no respiratory distress and no labored breathing Auscultation: lungs clear to auscultation bilaterally; no rales, no rhonchi and no wheezes Cardiovascular: Rate/Rhythm: regular rate and regular rhythm Vessels: radial pulses present Extremities: no edema Gastrointestinal (Abdomen): Inspection/Auscultation: normal bowel sounds; abdomen not distended Percussion/Palpation: + abdomen tender (around PEG site) and abdomen soft Musculoskeletal: Head/Neck/Chest: normocephalic, head atraumatic and neck supple Skin: PEG site with mild erythema and scant clear drainage Neurologic: moves all extremities; no focal motor deficits Principal Diagnosis Acute kidney injury Acute dehydration Irritation around PEG tube site Electrolyte abnormalities (Hypomagnesemia, Hypocalcemia, Hypophosphatemia) Vitamin D Deficiency COVID 19 infection Severe malnutrition Anemia Urinary Tract Infection Discharge Exam Constitutional + well hydrated; no acute distress Eyes PERRL, conjunctivae normal, anicteric sclerae ENMT external ear and nose normal, oropharynx normal Respiratory normal respiratory effort, lungs clear to auscultation Cardiovascular Rate/Rhythm: regular rhythm and + bradycardic S1 S2 Gastrointestinal (Abdomen) normal bowel sounds, soft, nontender, no hepatosplenomegaly G tube in situ Musculoskeletal no cyanosis or clubbing, extremities motor strength 5/5 Neurologic PERRL, EOMI, accommodation nl, no face palsy, no dysarthria Psychiatric A+Ox3, euthymic affect Discharge Data Allergies Allergy/AdvReac Type Severity Reaction Status Date / Time Penicillins Allergy Unknown ? REACTION Verified 09/03/21 16:29 Sulfa (Sulfonamide Allergy Unknown Unknown Verified 09/03/21 16:29 Antibiotics) reaction aspirin AdvReac Mild No an Verified 09/03/21 16:29 allergy- cannot take post-bypass surgery ragweed pollen AdvReac Mild swelling Verified 09/03/21 16:29 Consultations 09/03/21 15:58 ED Decision to Admit Stat 09/03/21 20:36 Consult Gastroenterology Routine 09/06/21 12:09 Consult General Surgery Routine Ordered Studies 09/06/21 09:15 CT abd pelvis wo con Urgent There are patchy groundglass airspace opacities consistent with a viral pneumonia. Partial opacities of the left lower lobe bronchi with consolidative airspace opacities within the left lower lobe. This could also be due to the bilateral pneumonia or an aspiration pneumonia. There is a trace left pleural effusion. No pneumoperitoneum. No pneumatosis. S-shaped scoliosis of the thoracolumbar spine is again noted. No fractures within the visualized osseous structures. There is a trace right pleural effusion. Moderate body wall edema. There is been interval placement of percutaneous gastrostomy tube into the excluded portion of the stomach. The patient is status post gastric bypass. The excluded portion of the stomach and gastrojejunostomy are connected through a large stent which appears in good position. Prior cholecystectomy. There are 2 subcentimeter hypodense lesions within the right hepatic lobe, unchanged. These favor cysts given the stability. The unenhanced pancreas, spleen, and adrenal glands are unremarkable. Multiple punctate bilateral renal calculi. Stable bilateral renal hypodense lesions. These are incompletely characterized on this noncontrast study but statistically represent cysts. A right ureteral stent appears in good position. There is a 3 mm stone within the mid right ureter on image 229 which is adjacent to the ureteral stent. There is an additional 1 mm ureteral stone within the mid right ureter on image 235. There is mild right urothelial thickening and periureteral edema. There is mild bilateral perinephric edema. Mild right hydronephrosis identified. Questionable bladder wall thickening versus a small amount of debris within the right posterior b ladder. This is best seen image 353. Suboptimal evaluation for bowel pathology due to the lack of intravenous and oral contrast. However, there is no definite bowel wall thickening or obstruction. IMPRESSION: 1. Mild right hydronephrosis. A right ureteral stent is in good position. There are 2 small stones within the mid right ureter with the largest measuring 3 mm. 2. Bilateral nephrolithiasis. 3. Questionable bladder wall thickening versus a small amount of debris within the right posterior bladder. This could be confirmed with follow-up cystoscopy or CT urogram once the patient's ureteral stent has been removed. 4. No bowel wall thickening or obstruction. 5. Postoperative changes as described above. 6. Trace bilateral pleural effusions. 7. Ground glass airspace opacities within the lung bases likely represents a viral pneumonia. There is also partial opacification the left lower lobe bronchi and consolidation within the left lower lobe which could be due to the viral pneumonia or a superimposed aspiration pneumonia. Hospital Course (1) Acute kidney injury: ROBINSON on CKD III Metabolic Acidosis Prerenal due to poor oral intake secondary to PEG tube issues Cr: 1.7>>1.34>1.19 Received IV fluids ROBINSON resolved (2) Acute dehydration: As above (3) Irritation around percutaneous endoscopic gastrostomy (PEG) tube site: PEG tube site, possible Infection -POA Patient stated having tenderness with PEG tube use Was empirically treated with antibiotics Blood Cx: Negative Was evaluated by GI and surgery who recommend patient to follow up with her GI outpatient Tenderness has resolved (4) Hypomagnesemia: Hypocalcemia Hypophosphatemia Vitamin D deficiency. Vit D is 16.9 Electrolytes were aggressively repleted Patient to continue home calcium, weekly Vit D. She reported she has this at home Started on po magnesim (5) COVID-19 virus infection: COVID 19 Infection Patient is Vaccinated for COVID CXR:No acute cardiopulmonary disease Procalcitonin < 0.05 CRP 4.26-->3.93 Isolation precautions--Airborne/Contact Had only mild cough. No oxygen requirement No COVID specific therapy given (6) Migraine headache: Stable (7) Depression with anxiety: Continue home meds (8) Malabsorption: H/O gastric bypass surgery (9) Severe malnutrition: Severe protein calorie malnutrition Was evaluated by Nutrition Tolerating po diet. However, patient declined resuming her PEG tube feeding inpatient Patient not interested in resuming G tube feeding for now until f/u with outpatient GI/Sx (10) Anemia: Hb drop likely dilutional due to IV fluids No obvious bleeding issues Hb has been stable in 7s UTI Urine Culture grew Enterococcus Faecalis Treated with daptomycin in patient Patient reported some falls at home Evaluated by PT CM given script for outpatient PT. Total Time Total Time Spent Total Time Spent (In Minutes): 45 Total Time Includes: Examination of the Patient, Discharge Planning, Medication Reconciliation and Communication With Other Providers Discharge Plan Discharge Items Patient Disposition: Home - Self-Care Reason For Visit: PEG TUBE ISSUE Discharge Diagnosis: Acute kidney injury Acute dehydration Irritation around PEG tube site Electrolyte abnormalities (Hypomagnesemia, Hypocalcemia, Hypophosphatemia) Vitamin D Deficiency COVID 19 infection Severe malnutrition Anemia Urinary Tract Infection Activity: Resume your previous activity Non-emergency contact: Primary Care Provider, Surgeon and Machine Cloth Trimmer Call non-emergency contact if: you have any medication questions Follow-up/Referrals: Nasra Perez CRNP [Nurse Practitioner] - 09/23/21 12:00 pm (Date & Time 09/23/2021 12:00 PM Provider JARON Nguyen Department Gastroenterology, [facility] ) Evelyn Andrews MD [Primary Care Provider] - 09/14/21 4:00 pm (Date & Time 09/14/2021 4:00 PM Provider Li Cano PA-C Department Family Medicine [facility] ) Diet: Regular Diet Comment: Continue boost once daily Addtl Attending Provider Instructions: Mrs Hogue You came to the hospital complaining of pain around PEG tube site especially with feeding. You were evaluated and noted to be dehydrated with acute kidney injury. You also had mild COVID 19 infection and did not require COVID specific treatment. You were managed and your symptoms improved. You were evaluated by Machine Cloth Trimmer and Surgery inpatient. It is very important that you follow up with Gastroenterology in the office. You were also treated for urinary tract infection which has resolved. Please continue to optimize your oral intake as we discussed. Please ensure follow up with your Primary Doctor. It was a pleasure taking care of you. Pending Studies at Discharge: No Stand-Alone Forms: My [facility] [employer], Smoking Cessation Medications and DC Order Prescriptions: New Mag 64 64 mg Tablet,Delayed Release (Dr/Ec) 64 mg PO BID Qty: 60 RF: 0 Continued rizatriptan 10 mg tablet 10 mg PO DAILY PRN (Reason: Migraines) RF: 0 gabapentin 300 mg capsule 300 mg PO TID RF: 0 ondansetron HCl [Zofran] 4 mg tablet 4 mg PO Q8H PRN (Reason: nausea and vomiting) RF: 0 ergocalciferol (vitamin D2) 50,000 unit Capsule 50,000 unit PO WK Qty: 0 RF: 0 cyanocobalamin (vitamin B-12) 1,000 mcg/mL Solution 1 dose IM MONTHLY Qty: 0 RF: 0 diphenoxylate-atropine [Lomotil] 2.5-0.025 mg Tablet 1 tab PO QID PRN (Reason: Diarrhea) Qty: 0 RF: 0 acetaminophen 500 mg tablet 500 mg PO Q4H PRN (Reason: Pain) RF: 0 xzxzmdzkik-fbflvwsiekkyc-epjy 50-325-40 mg tablet 1 tab PO Q6H PRN (Reason: Pain) RF: 0 alprazolam 0.25 mg tablet 0.25 mg PO DAILY PRN (Reason: Anxiety) RF: 0 calcium carbonate [Oysco-500] 500 mg calcium (1,250 mg) tablet 1,000 mg PO DAILY RF: 0 duloxetine 30 mg capsule,delayed release(DR/EC) 30 mg PO BID RF: 0 tizanidine 4 mg tablet 2 mg PO DIRECTED PRN (Reason: onset of migraine) RF: 0 quetiapine 100 mg tablet 100 mg PO DAILY RF: 0 oxycodone-acetaminophen 7.5-325 mg tablet 0.5 tab PO Q8H PRN (Reason: Pain) RF: 0 multivitamin [Daily-Larissa] Tablet 1 tab PO QAM Qty: 30 RF: 3 Discharge Orders: Discharge Order (Routine); Ordered 09/10/21 Ordered By: Wilma Mayo Admission Data Admit Date/Time: 09/04/21 16:19 Attending Provider: Wilma Mayo I. Admit Provider: Lis Pratt Primary Care Provider: Evelyn Andrews Other Providers: Thuy Burton ; Lis Pratt ; Suhail Almonte ; Cezar Lockwood ; Mariann Cheatham ; Kendy Rondon ; Nas Martinez ; Weston Lucero ; Darcie Traylor ; Porsche Pena ; Dickson Goins Jr ; Stephane Grier ; Jose Forrest ; Thuy Benedict ; Gallo Sandoval Other Interventions: Discharge Summary Assessment (RN) Last Done: 09/10/21 16:48
--- NOTE | 2021-09-10 15:36 | Electrocardiogram Report ---
Test Reason : Blood Pressure : / mmHG Vent. Rate : 056 BPM Atrial Rate : 056 BPM P-R Int : 220 ms QRS Dur : 082 ms QT Int : 434 ms P-R-T Axes : 025 -21 013 degrees QTc Int : 418 ms Sinus bradycardia with 1st degree A-V block Low voltage QRS Borderline ECG When compared with ECG of 03-SEP-2021 14:06, DC interval has increased Nonspecific T wave abnormality now evident in Inferior leads Confirmed by Hugh Aguilar ([id number]) on 09/10/2021 3:36:11 PM Referred By: REFERRED SELF Confirmed By:Hugh Aguilar
[2021-09-10] MEDS: DAPTOmycin 250 MG in SYRINGE 0 ML IV SCH (17:10)
== END 2021-09-10 17:12 | disposition home or self-care (01) | DRG 682 ==
LOC: ED 12:38 → 2W 12:38 → SUATTDRO 17:07 → 2W 20:10 → SUATTDRO 09-04 16:19

== ENCOUNTER 2023-12-06 13:06 | Inpatient (IN) ==
--- NOTE | 2023-12-06 13:26 | Emergency Department Note ---
Impression & Plan Sepsis, AMS (altered mental status), Acute kidney injury superimposed on chronic kidney disease, Elevated troponin, Elevated procalcitonin, Acute hypoxemic respiratory failure, Leukocytosis, Acidosis, Septic shock, Pneumonia ED Provider Note HISTORY OF PRESENT ILLNESS: Patient is a 58-year-old female presenting with altered mental status. Patient's friend provided most of history. Reports that she brought the patient to the ER because she was worried the patient was having a stroke. Patient states she feels very short of breath. Patient reports does not wear any supplemental oxygen at home. She has subclavian access in her left chest and she reports this is for TPN. Denies any chest pain. Denies any DVT or PE history. Denies any lightheadedness or dizziness. Reports she just does not feel well. Denies any anticoagulation or antiplatelet use. Unknown last known well. ROS: as above PHYSICAL EXAM: Constitutional: Patient appears in mild distress. HENT: Head: Normocephalic and atraumatic. Eyes: EOMI, PERRL Mouth/Throat: Mucous membranes moist. Neck: Trachea midline. Neck supple. Cardiovascular: Tachycardic with regular rhythm. No murmurs, rubs or gallops. Intact distal pulses. Pulmonary/Chest: Patient is on oxy mask. Conversationally dyspneic. Coarse breath sounds bilaterally. Access to left subclavian region. Abdominal: Abdomen soft, no tenderness, rebound or guarding. Musculoskeletal: No edema, tenderness or deformity noted. Skin: Warm and dry. No rash, erythema, pallor or cyanosis Neurological: Alert but confused. Moving all extremities spontaneously. MDM: - Vitals signs showed hypotension, tachycardia and hypoxia. Patient placed on oxymask and brought back to resuscitation bay from triage. Bilateral large bore IV access obtained. - History obtained via patient and patient's friend, given patient's confusion. History as above. - Chronic conditions affecting care: hx of gastric bypass; depression; severe malnutrition; CAD; urinary incontinence - Differential diagnoses include, but are not limited to: CVA; hypercarbia; ACS; pneumonia; PE; electrolyte abnormality; sepsis - Order placed for continuous cardiac monitoring. At this time, monitor showed rate of 103 bpm with normal sinus rhythm, per my interpretation. - External medical records reviewed. [facility] urology office visit note dated 12/04/2023 was reviewed. Patient follows in their clinic for her continuous leakage of urine. She did start a new anticholinergic medication (solifenacin succinate 5 mg daily) 2 days ago that was called in by Dr. Christopher Almonte. - EKG interpreted by myself showed normal sinus rhythm. Rate 89 bpm. QT 350. No acute ischemic changes. - Laboratory workup interpreted by myself showed leukocytosis (WBC 37.27) with left shift; hypokalemia (K 3.4); elevated anion gap (13); elevated BUN (52); ROBINSON on CKD (Cr 2.20 - was 1.7 yesterday); normal lactate; elevated troponin (17.4); elevated procalcitonin (4.49) - Acidosis noted on ABG and VBG (pH 7.21 on ABG) - Blood cultures obtained. - CXR negative for pneumonia, per my interpretation - Urine cultures were reviewed. Patient had a urine culture from 09/04/2021 that grew Enterococcus faecalis. Sensitive to ampicillin, daptomycin, vancomycin. Patient has an anaphylactic allergy to penicillins. Added meropenem for broader coverage. - Patient given 2L NS in ER. Empirically started on IV vancomycin. Patient's sepsis fluid volume resuscitation based on ideal body weight is 1568.1 mL. - Viral respiratory panel negative - CT head wo contrast negative for acute pathology - CTA head/neck negative for acute pathology. - CTA chest negative for PE. Noted to have groundglass opacities concerning for possible pneumonia, per radiology. - Patient's BP did improve to 90s systolic after fluid resuscitation. - Discussion was had with manager of case about patient's case and need for admission - Hospitalist consulted for admission - [facility] for further evaluation and management. I have personally spent 91 minutes of critical care time in the direct management of this patient. This includes bedside care, interpretation of diagnostic studies, and testing, discussion with consultants, patient, and family members, and other required patient management activities. This 91 minutes is in excess of all separately billable procedures. ASSESSMENT AND PLAN: Diagnosis: sepsis; altered mental status; ROBINSON on CKD; elevated troponin; elevated procalcitonin; acute hypoxic respiratory failure; leukocytosis; acidosis; septic shock; pneumonia Plan: admit Past Med/Surg History Problem List Pneumonia (Acute) Septic shock (Acute) Acidosis (Acute) Leukocytosis (Acute) Acute hypoxemic respiratory failure (Acute) Elevated procalcitonin (Acute) Elevated troponin (Acute) Acute kidney injury superimposed on chronic kidney disease (Acute) AMS (altered mental status) (Acute) Sepsis (Acute) Gastrostomy tube in place COVID-19 (Acute) COVID-19 virus infection Acute kidney injury (Acute) Acute dehydration (Acute) Irritation around percutaneous endoscopic gastrostomy (PEG) tube site (Acute) Generalized weakness (Acute) Hypotension Admitted 09/15/20 and then again 10/01/20 Hyperparathyroidism PFO (patent foramen ovale) Per records Per cardio consultation 06/29/19= pt had previous ECHO 06/13/19 that showed "trace interatrial shunt and inferoseptal wall motion abnormality could not be excluded " Malabsorption (Chronic) Acute chest pain (Acute) Anemia (Acute) Abnormal ECG (Acute) Chest pain DVT prophylaxis Chronic pain syndrome Tobacco use H/O migraine Anxiety Hypomagnesemia (Acute) Hypokalemia (Acute) Dehydration (Acute) Generalized weakness (Acute) Abdominal pain Acute hypotension (Acute) Hypokalemia (Acute) Diarrhea (Acute) Severe malnutrition Acute kidney injury Ureteral stone with hydronephrosis Encounter for pre-operative examination Hypotension (Acute) Anemia (Acute) Hypomagnesemia (Acute) Hypokalemia (Acute) Acute dehydration (Acute) S/P ureteral stent placement Right flank pain Renal colic on right side Right ureteral calculus Depression with anxiety Migraine headache (Chronic) History of bowel diversion surgery (Chronic) History of cholecystectomy (Chronic) Copper deficiency (Chronic) Anemia (Chronic) S/p 1 unit PRBCs while admitted 10/01/20 to 10/05/20 History of gastric bypass (Chronic ~1999) Medical History Anemia S/p 1 unit PRBCs while admitted 10/01/20 to 10/05/20 Copper deficiency Depression with anxiety Hyperparathyroidism Hypotension Admitted 09/15/20 and then again 10/01/20 Kidney stones Migraine headache Nausea at times PFO (patent foramen ovale) Per records Per cardio consultation 06/29/19= pt had previous ECHO 06/13/19 that showed "trace interatrial shunt and inferoseptal wall motion abnormality could not be excluded " Poor appetite at times Weight loss, unintentional Zinc poisoning Surgical History History of bowel diversion surgery History of cholecystectomy History of colonoscopy History of cystoscopy with stent placement 08/2020 History of esophagogastroduodenoscopy (EGD) History of gastric bypass (~1999) History of lithotripsy Hx of cardiac cath jul 01 2019. no stents Family History Mother Coronary heart disease Other No family history of adverse response to anesthesia Social History Smoking Status: Current every day smoker Tobacco Type: Cigarettes packs per day: 1; Cigarettes Per Day: PPD; Second Hand Exposure: No; Do You Dip or Chew Tobacco: No; Hx Alcohol Use: Yes Hx Substance Use: Yes Preferred Language: [place] Citizen Communication Ability: Effective Visual Impairment: No Limitations Hearing Ability: Normal Cath Laboratory Technician Required: No Beliefs That Will Affect Care: None marital status: Current Living Situation: Alone current occupational status: employed and disabled 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[employer], 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 Feels Safe at Home: Yes Assistive Devices: Glasses Allergies Allergies Allergy/AdvReac Type Severity Reaction Status Date / Time amoxicillin Allergy Severe Anaphylaxis Verified 12/05/22 15:37 Penicillins Allergy Severe Anaphylaxis Verified 12/05/22 15:37 Sulfa (Sulfonamide Allergy Severe Anaphylaxis Verified 12/05/22 15:37 Antibiotics) ragweed pollen Allergy Intermediate swelling Verified 12/05/22 15:37 aspirin AdvReac Unknown No an Verified 12/05/22 15:37 allergy- cannot take post-bypass surgery Home Meds Home Medications Medication Instructions Recorded Confirmed ergocalciferol (vitamin D2) 1,250 50,000 unit PO WK #0 caps 11/26/13 12/05/22 mcg (50,000 unit) capsule cyanocobalamin (vitamin B-12) 1 dose IM MONTHLY ##0 06/11/14 12/05/22 1,000 mcg/mL injection solution diphenoxylate-atropine 2.5 1 tab PO QID PRN Diarrhea #0 tabs 08/02/16 12/05/22 mg-0.025 mg tablet (Lomotil) rizatriptan 10 mg tablet 10 mg PO DAILY PRN Migraines 05/14/19 06/12/23 alprazolam 0.25 mg tablet 0.25 mg PO HS PRN Anxiety 06/28/19 12/05/22 xpxqxqnmdw-hvjiveerwtpmh-wgvoczoz 1 tab PO Q6H PRN Pain 06/28/19 12/05/22 50 mg-325 mg-40 mg tablet acetaminophen 500 mg tablet 500 mg PO Q4H PRN Pain 08/23/20 12/05/22 calcitriol 0.25 mcg capsule 0.25 mcg PO 3XWK 12/05/22 12/05/22 calcium carbonate (Oyster Shell 500 mg PO BID 12/05/22 12/05/22 Calcium 500) cephalexin 500 mg capsule 500 mg PO TID 12/05/22 12/05/22 dicyclomine 20 mg tablet 20 mg PO QID PRN ABD PAIN 12/05/22 12/05/22 docusate sodium 100 mg capsule 100 mg PO BID 12/05/22 12/05/22 duloxetine 60 mg capsule,delayed 120 mg PO DAILY 12/05/22 12/05/22 release estradiol 0.01% (0.1 mg/gram) 1 appful vaginal DIRECTED 12/05/22 12/05/22 vaginal cream ketorolac 10 mg tablet 10 mg PO Q6H PRN Pain 12/05/22 12/05/22 mirtazapine 45 mg tablet 45 mg PO HS 12/05/22 12/05/22 omeprazole 20 mg capsule,delayed 20 mg PO QAM 12/05/22 12/05/22 release ondansetron 4 mg disintegrating 4 mg PO Q8H PRN NAUSEA/VOMITING 12/05/22 12/05/22 tablet promethazine 25 mg tablet 25 mg PO Q6H PRN NAUSEA/VOMITING 12/05/22 12/05/22 quetiapine 100 mg tablet (Seroquel) 100 mg PO HS 12/05/22 12/05/22 sumatriptan succinate 50 mg tablet 50 mg PO DIRECTED PRN ATTACKS 12/05/22 12/05/22 PER [facility] tramadol 50 mg tablet 50 mg PO Q8H PRN Pain 12/05/22 12/05/22 Results & Data (ED) Vital Signs Vital Signs - 24 hr 12/06/23 13:07 12/06/23 13:30 12/06/23 13:30 Temperature 36.7 C Temperature Source Temporal Artery Scan Pulse Rate 94 H 90 Pulse Rate [Apical] Respiratory Rate 30 H Respiratory Effort / Characteristics Respiratory Depth Blood Pressure 87/56 L Blood Pressure [Right Arm] Blood Pressure Mean 66 Blood Pressure Mean [Right Arm] Pulse Oximetry 78 L 78 L Oxygen Delivery Method Room Air Room Air Oxymask Oxygen Flow Rate 0 Sepsis Recent Fever Within 48 Hours No Sepsis New/Unexplained Change in Mental Status N/A Sepsis Action Taken by Nursing No Action Required Oxygen Flow Rate - Titration 10 Pulse Oximetry Post Tiitration 96 12/06/23 13:30 12/06/23 13:31 12/06/23 13:42 Temperature Temperature Source Pulse Rate Pulse Rate [Apical] 88 93 H Respiratory Rate 31 H 24 Respiratory Effort / Characteristics Non-Labored Spontaneous Respiratory Depth Normal Blood Pressure Blood Pressure [Right Arm] 93/56 L 93/56 L Blood Pressure Mean Blood Pressure Mean [Right Arm] 68 68 Pulse Oximetry 97 100 99 Oxygen Delivery Method Oxymask Oxymask Oxymask Oxygen Flow Rate 10 10 10 Sepsis Recent Fever Within 48 Hours Sepsis New/Unexplained Change in Mental Status Sepsis Action Taken by Nursing Oxygen Flow Rate - Titration Pulse Oximetry Post Tiitration 12/06/23 14:00 12/06/23 15:00 Temperature Temperature Source Pulse Rate Pulse Rate [Apical] 96 H 93 H Respiratory Rate 30 H 24 Respiratory Effort / Characteristics Non-Labored Spontaneous Non-Labored Spontaneous Respiratory Depth Normal Normal Blood Pressure Blood Pressure [Right Arm] 95/67 L 95/47 L Blood Pressure Mean Blood Pressure Mean [Right Arm] 76 63 Pulse Oximetry 95 93 Oxygen Delivery Method Oxymask Oxymask Oxygen Flow Rate 10 10 Sepsis Recent Fever Within 48 Hours Sepsis New/Unexplained Change in Mental Status Sepsis Action Taken by Nursing Oxygen Flow Rate - Titration Pulse Oximetry Post Tiitration Laboratory Data 12/06/23 13:38 12/06/23 13:38 Lab Results 12/06/23 12/06/23 Range/Units 13:38 14:01 WBC 37.27 H* (4.8-10.8) K/ul RBC 3.77 L (4.20-5.40) M/uL Hgb 11.0 L (12.0-16.0) g/dl Hct 33.9 L (37.0-47.0) % MCV 89.9 (80.0-100.0) fL MCH 29.2 (25.0-34.0) pg MCHC 32.4 (32.0-36.0) g/dL RDW Std Deviation 60.9 H (36.4-46.3) fL RDW Coeff of Mike 18.5 H (11.5-14.5) % Plt Count 287 (130-400) K/uL MPV 12.4 (9.4-12.4) fL Immature Gran % (Auto) 1.2 % Neut % (Auto) 90.2 % Lymph % (Auto) 5.8 % [place] % (Auto) 2.2 % Eos % (Auto) 0.1 % Baso % (Auto) 0.5 % Neut # (Auto) 33.62 H (1.40-6.50) K/uL Lymph # (Auto) 2.18 (1.20-3.40) K/uL [place] # (Auto) 0.82 H (0.11-0.59) K/uL Eos # (Auto) 0.05 (0.00-0.50) K/uL Baso # (Auto) 0.17 (0.00-0.20) K/uL Immature Gran # (Auto) 0.43 H (0.01-0.20) K/uL Polychromasia 1+ Echinocytes 2+ Acanthocytes (Spur) 2+ PT 12.9 H (9.0-12.0) Seconds INR 1.2 H (0.9-1.1) ABG pH 7.21 L (7.35-7.45) ABG pCO2 19 L (35-46) mmHg ABG pO2 80 (80-95) mmHg ABG HCO3 8 L (19-24) mmol/L ABG O2 Saturation 94.1 (90-95) % ABG Base Excess -18.4 L (-9-1.8) mEq/L Harshal Test Pos (Pos) VBG pH 7.13 L (7.36-7.41) VBG pCO2 30 L (38-50) mmHg VBG pO2 < 20 mmHg VBG HCO3 10 mmol/L VBG O2 Saturation < 60.0 % VBG Base Excess -17.9 mEq/L Oxygen Given 10L Sodium 140 (136-145) mmol/L Potassium 3.4 L (3.5-5.1) mmol/L Chloride 116 H (98-107) mmol/L Carbon Dioxide 11 L (21-32) mmol/L Anion Gap 13 H (3-11) BUN 52 H (6-23) mg/dl Creatinine 2.20 H (0.6-1.2) mg/dl Est Cr Clr Drug Dosing 16.2 ml/min Est GFR ( Amer) 27.3 ml/min Est GFR (Non-Af Amer) 23.6 ml/min BUN/Creatinine Ratio 23.6 H (10-20) Glucose 129 H (70-99(Fasting)) mg/dl Lactate 1.6 (0.4-2.0) mmol/L Calcium 8.6 (8.6-10.3) mg/dl Magnesium 1.8 (1.7-2.4) mg/dl Total Bilirubin 0.3 (0.2-1.0) mg/dl Direct Bilirubin 0.1 (0-0.2) mg/dl AST 44 H (13-39) U/L ALT 14 (7-52) U/L Alkaline Phosphatase 212 H (34-104) U/L Troponin I High Sens 17.4 H (0-14) pg/ml Total Protein 7.2 (6.0-8.3) gm/dl Albumin 3.8 (3.4-5.0) gm/dl Procalcitonin 4.49 H (0-0.5) ng/ml Adenovirus (PCR) Not Detected (NotDetected) B. pertussis DNA (PCR) Not Detected (NotDetected) B.parapertussis DNA PCR Not Detected (NotDetected) C. pneumoniae DNA (PCR) Not Detected (NotDetected) Coronavirus OC43 (PCR) Not Detected (NotDetected) Coronavirus HKU1 (PCR) Not Detected (NotDetected) Coronavirus 229E (PCR) Not Detected (NotDetected) SARS-CoV-2 (PCR) Not Detected (NotDetected) Coronavirus NL63 (PCR) Not Detected (NotDetected) Human Metapneumovir PCR Not Detected (NotDetected) Influenza Type A (PCR) Not Detected (NotDetected) Influenza Type B (PCR) Not Detected (NotDetected) M. pneumoniae (PCR) Not Detected (NotDetected) Parainfluenza 1 (PCR) Not Detected (NotDetected) Parainfluenza 2 (PCR) Not Detected (NotDetected) Parainfluenza 3 (PCR) Not Detected (NotDetected) Parainfluenza 4 (PCR) Not Detected (NotDetected) RSV (PCR) Not Detected (NotDetected) Entero/Rhino (PCR) Not Detected (NotDetected) Blood Type A Positive Antibody Screen NEGATIVE Administered Medications Discontinued Medications Sodium Chloride (Nss) 1,000 mls @ 999 mls/hr IV .Q1H1M ALEKS Stop: 12/06/23 14:30 Last Infusion: 12/06/23 15:00 Dose: Infused Documented By: Admin: 12/06/23 13:56 Dose: 999 mls/hr Documented By: Sodium Chloride (Nss) 1,000 mls @ 999 mls/hr IV .Q1H1M ONE Stop: 12/06/23 15:16 Last Admin: 12/06/23 14:21 Dose: 999 mls/hr Documented By: Ioversol (Optiray 320 125ml) 120 ml IV ONCE ONE Stop: 12/06/23 14:55 Last Admin: 12/06/23 14:55 Dose: 120 ml Documented By: [facility] Imaging Data Radiologist's Impression: Chest CTA 12/06/23 13:22 CT angio chest PE protocol CLINICAL HISTORY: PE; hypotension; hypoxia TECHNIQUE: Multidetector row helical CT of the chest was performed with angiographic protocol. Coronal and sagittal reformations were obtained. Coronal and sagittal MIPS were obtained from the axial data set and were submitted for review. Automated dose lowering techniques and/or adjustment according to patient size were utilized for this exam. Comparison: Comparison is made to CT chest 04/06/2023 FINDINGS: Lungs and pleura: Diffuse groundglass opacities have significantly increased from prior exam. Bronchiectasis is seen. Heart and pericardium: Heart size is normal. No pericardial effusion. Vessels: No evidence of pulmonary embolism. Mediastinum and gary: Unremarkable. Chest wall and lower neck: Unremarkable. Abdomen: Patient is status post cholecystectomy. Bones: Scoliosis is seen. IMPRESSION: 1. No pulmonary embolus. 2. Worsening groundglass opacities compatible with pneumonia and/or aspiration. ACT 112: Negative or not required by law. Electronically signed by: Tyrell Wayne M.D. 12/06/2023 3:10 PM Chest X-Ray 12/06/23 13:22 XR chest 1V portable HISTORY: 58 years-old Female Sepsis acute sepsis COMPARISON: CTA chest of same day TECHNIQUE: AP view the chest FINDINGS: Sigmoid thoracolumbar scoliosis. Left IJ catheter distal tip terminates in the SVC. Mild cardiomegaly. No pneumothorax or pleural effusion. Extensive intermixed interstitial and alveolar opacities. Bones appear grossly intact. Surgical device within the stomach. Right upper quadrant surgical clips. IMPRESSION: Extensive intermixed interstitial and alveolar opacities without pleural effusion. Pneumonia versus ARDS are differential considerations. ACT 112: Negative or not required by law. The above report was generated using voice recognition software. It may contain grammatical, syntax or spelling errors. Electronically signed by: Maikel Lafleur M.D. 12/06/2023 3:[address] 12/06/23 13:22 CT head/brain wo con CLINICAL HISTORY: altered mental status Technique: Contiguous axial CT images of the head were acquired from the base of the skull to the vertex without intravenous contrast administration. Images were viewed in brain, subdural and bone windows. Automated dose lowering techniques and/or adjustment according to patient size were utilized for this exam. Comparison: None available at the time of this dictation. Findings: The ventricles, basal cisterns, and cerebral sulci are normal. There is no acute intracranial hemorrhage or evidence of acute territorial infarction. Neither mass effect, shift of the midline structures, nor abnormal extra-axial fluid collections are shown. Imaged portions of the paranasal sinuses and mastoid air cells are clear. The orbits appear normal. There are no acute fractures of the calvaria or scalp swelling. Impression: No acute intracranial hemorrhage, no evidence of acute territorial infarction or other acute intracranial disease process. ACT 112: Negative or not required by law. Electronically signed by: Tyrell Wayne M.D. 12/06/2023 3:07 PM Neck CTA 12/06/23 13:22 CT angio neck with con CLINICAL HISTORY: 58 years-old Female with altered mental status. Acutely altered mental status COMPARISON STUDY: CT abdomen same day TECHNIQUE: Following the IV administration of 120 mL of Optiray, CT angiogram of the neck was performed from the aortic arch to the skull base. Images are reviewed in the axial, sagittal, and coronal planes. 3-D MIPS images are created and assessed. IV contrast was administered without complication. All measurements were calculated based on NASCET criteria. A dose lowering technique was utilized adhering to the principles of ALARA. CT DOSE: 1083.39 mGy.cm FINDINGS: Three-vessel morphology of the thoracic aortic arch. There is patency of the innominate and imaged subclavian arteries. The common and internal carotid arteries are patent. Codominant and patent vertebral arteries. No aneurysm, dissection, high-grade stenosis or arterial occlusion. Intralobular septal thickening with groundglass densities in the left greater than right lungs. Mild emphysema. Left IJ catheter is partially imaged. Unremarkable thyroid. No acute fracture. IMPRESSION: 1. Unremarkable CTA of the neck. 2. Partially imaged left greater than right pulmonary opacities, better evaluated on the same day CTA of the chest. ACT 112: Negative or not required by law. The above report was generated using voice recognition software. It may contain grammatical, syntax or spelling errors. Electronically signed by: Maikel Lafleur M.D. 12/06/2023 3:31 PM Discharge Plan Visit Data Chief Complaint: Stroke/CVA Symptoms Stated Complaint: tia symptoms ED Provider: Ibeth Live Discharge Problem: Sepsis, AMS (altered mental status), Acute kidney injury superimposed on chronic kidney disease, Elevated troponin, Elevated procalcitonin, Acute hypoxemic respiratory failure, Leukocytosis, Acidosis, Septic shock, Pneumonia Forms Stand Alone Forms: [facility] Prescriptions Prescriptions: No Action rizatriptan 10 mg tablet 10 mg PO DAILY PRN (Reason: Migraines) ergocalciferol (vitamin D2) 50,000 unit Capsule 50,000 unit PO WK Qty: 0 Rx Instructions: FRIDAYS. cyanocobalamin (vitamin B-12) 1,000 mcg/mL Solution 1 dose IM MONTHLY Qty: 0 Rx Instructions: PER PT "DUE ANY TIME". diphenoxylate-atropine [Lomotil] 2.5-0.025 mg Tablet 1 tab PO QID PRN (Reason: Diarrhea) Qty: 0 acetaminophen 500 mg tablet 500 mg PO Q4H PRN (Reason: Pain) elokiftyli-ycwjytkkuzdpu-ymwc 50-325-40 mg tablet 1 tab PO Q6H PRN (Reason: Pain) alprazolam 0.25 mg tablet 0.25 mg PO HS PRN (Reason: Anxiety) sumatriptan succinate 50 mg Tablet 50 mg PO DIRECTED MDD 2 TABS/24 HOURS PRN (Reason: ATTACKS PER [facility]) Rx Instructions: MAX OF 2 TABS PER ATTACK, AND NO MORE THAN 3 X WEEKLY. tramadol 50 mg Tablet 50 mg PO Q8H PRN (Reason: Pain) quetiapine [Seroquel] 100 mg Tablet 100 mg PO HS ketorolac 10 mg Tablet 10 mg PO Q6H PRN (Reason: Pain) calcium carbonate [Oyster Shell Calcium 500] 500 mg calcium (1,250 mg) Tablet 500 mg PO BID Rx Instructions: PER PT "NOT REGULARLY". dicyclomine 20 mg Tablet 20 mg PO QID PRN (Reason: ABD PAIN) cephalexin [Keflex] 500 mg Capsule 500 mg PO TID Rx Instructions: LAST DISPENSED 11/18/22, PER PT "FINISHED THIS MED". promethazine 25 mg Tablet 25 mg PO Q6H PRN (Reason: NAUSEA/VOMITING) docusate sodium 100 mg Capsule 100 mg PO BID omeprazole 20 mg Capsule,Delayed Release(Dr/Ec) 20 mg PO QAM mirtazapine 45 mg Tablet 45 mg PO HS estradiol 0.01 % (0.1 mg/gram) Cream 1 appful VAGINAL DIRECTED ondansetron [Zofran ODT] 4 mg Tablet,Disintegrating 4 mg PO Q8H PRN (Reason: NAUSEA/VOMITING) calcitriol 0.25 mcg Capsule 0.25 mcg PO 3XWK Rx Instructions: MON, WED, & FRI AM. duloxetine 60 mg Capsule,Delayed Release(Dr/Ec) 120 mg PO DAILY Referrals Referrals: Evelyn Mobley MD [Primary Care Provider] -
[2023-12-06] MEDS: SODIUM CHLORIDE 0.9% 1,000 ML IV SCH (13:56)
[2023-12-06 14:01] LABS: Base Excess VBG -17.9 mEq/L; HCO3 VBG 10 mmol/L; Oxygen Saturation VBG < 60.0 %; PCO2 VBG 30 mmHg (38-50); PO2 VBG < 20 mmHg; pH VBG 7.13 (7.36-7.41)
[2023-12-06 14:13] LABS: Base Excess ABG -18.4 mEq/L (-9-1.8); HCO3 ABG 8 mmol/L (19-24); Oxygen Saturation ABG 94.1 % (90-95); PCO2 ABG 19 mmHg (35-46); PO2 ABG 80 mmHg (80-95); pH ABG 7.21 (7.35-7.45)
[2023-12-06] MEDS: SODIUM CHLORIDE 0.9% 1,000 ML IV ONE (14:21)
[2023-12-06 14:26] LABS: Allen Test Pos (Pos)
[2023-12-06 14:33] LABS: Albumin Level 3.8 gm/dl (3.4-5.0); BUN Creatinine Ratio 23.6 (10-20); Bilirubin Direct 0.1 mg/dl (0-0.2); Bilirubin,Total 0.3 mg/dl (0.2-1.0); Calcium 8.6 mg/dl (8.6-10.3); Creatinine Clr Calc Pharmacy 16.2 ml/min; Est GFR (African American) 27.3 ml/min; Est GFR (Non-African American) 23.6 ml/min; Magnesium 1.8 mg/dl (1.7-2.4); Potassium 3.4 mmol/L (3.5-5.1); Total Protein 7.2 gm/dl (6.0-8.3)
[2023-12-06 14:38] LABS: Troponin I High Sensitivity 17.4 pg/ml (0-14)
[2023-12-06 14:41] LABS: INR 1.2 (0.9-1.1); Prothrombin Time 12.9 Seconds (9.0-12.0)
[2023-12-06] MEDS ORDERED: VANCOMYCIN CONSULT ACTIVE PRN (14:43)
[2023-12-06] MEDS ORDERED: VANCOMYCIN HCL 750 MG in SODIUM CHLORIDE 0.9% 500 ML IV ONE (14:43)
[2023-12-06] MEDS: OPTIRAY 320 125ml IV ONE (14:55)
[2023-12-06 14:58] LABS: Adenovirus PCR Not Detected (NotDetected); Bordetella parapertussis PCR Not Detected (NotDetected); Bordetella pertussis PCR Not Detected (NotDetected); Chlamydia pneumoniae PCR Not Detected (NotDetected); Coronavirus 229E PCR Not Detected (NotDetected); Coronavirus CoV-2 (COVID19)PCR Not Detected (NotDetected); Coronavirus HKU1 PCR Not Detected (NotDetected); Coronavirus NL63 PCR Not Detected (NotDetected); Coronavirus OC43PCR Not Detected (NotDetected); Human Metapneumovirus PCR Not Detected (NotDetected); Influenza A PCR Not Detected (NotDetected); Influenza B PCR Not Detected (NotDetected); Mycoplasma pneumoniae PCR Not Detected (NotDetected); Parainfluenza Virus 1 PCR Not Detected (NotDetected); Parainfluenza Virus 2 PCR Not Detected (NotDetected); Parainfluenza Virus 3 PCR Not Detected (NotDetected); Parainfluenza Virus 4 PCR Not Detected (NotDetected); Respiratory Syncytial VirusPCR Not Detected (NotDetected); Rhinovirus/Enterovirus PCR Not Detected (NotDetected)
--- NOTE | 2023-12-06 15:09 | CT Scan Report ---
CT head/brain wo con CLINICAL HISTORY: altered mental status Technique: Contiguous axial CT images of the head were acquired from the base of the skull to the stacey keshawn without intravenous contrast administration. Images were viewed in brain, subdural and [facility]. Automated dose lowering techniques and/or adjustment according to patient size were utilized for this exam. Comparison: None available at the time of this dictation. Findings: The ventricles, basal cisterns, and cerebral sulci are normal. There is no acute intracranial hemorrh age or evidence of acute territorial infarction. Neither mass effect, shift of the midline structures , nor abnormal extra-axial fluid collections are shown. Imaged portions of the paranasal sinuses and mastoid air cells are clear. The orbits appear normal. There are no acute fractures of the calvaria or scalp swelling. Impression: No acute intracranial hemorrhage, no evidence of acute territorial infarction or other acute intracra nial disease process. ACT 112: Negative or not required by law. Electronically signed by: Tyrell Wayne M.D. 12/06/2023 3:07 PM
--- NOTE | 2023-12-06 15:12 | CT Scan Report ---
CT angio chest PE protocol CLINICAL HISTORY: PE; hypotension; hypoxia TECHNIQUE: Multidetector row helical CT of the chest was performed with angiographic protocol. Shah l and sagittal reformations were obtained. Coronal and sagittal MIPS were obtained from the axial anuja a set and were submitted for review. Automated dose lowering techniques and/or adjustment according to patient size were utilized for this exam. Comparison: Comparison is made to CT chest 04/06/2023 FINDINGS: Lungs and pleura: Diffuse groundglass opacities have significantly increased from prior exam. Bronchi ectasis is seen. Heart and pericardium: Heart size is normal. No pericardial effusion. Vessels: No evidence of pulmonary embolism. Mediastinum and gary: Unremarkable. Chest wall and lower neck: Unremarkable. Abdomen: Patient is status post cholecystectomy. Bones: Scoliosis is seen. IMPRESSION: 1. No pulmonary embolus. 2. Worsening groundglass opacities compatible with pneumonia and/or aspiration. ACT 112: Negative or not required by law. Electronically signed by: Tyrell Wayne M.D. 12/06/2023 3:10 PM
[2023-12-06 15:16] LABS: Acanthocytes 2+; Basophils # (auto) 0.17 K/uL (0.00-0.20); Basophils % (auto) 0.5 %; Echinocytes 2+; Eosinophils # (auto) 0.05 K/uL (0.00-0.50); Eosinophils % (auto) 0.1 %; Hematocrit (blood only) 33.9 % (37.0-47.0); Immature Granulocytes # (auto) 0.43 K/uL (0.01-0.20); Immature Granulocytes % (auto) 1.2 %; Lymphocytes # (auto) 2.18 K/uL (1.20-3.40); Lymphocytes % (auto) 5.8 %; Mean Corpuscular Hemoglobin 29.2 pg (25.0-34.0); Mean Corpuscular Hgb Conc 32.4 g/dL (32.0-36.0); Mean Corpuscular Volume 89.9 fL (80.0-100.0); Mean Platelet Volume 12.4 fL (9.4-12.4); Monocytes # (auto) 0.82 K/uL (0.11-0.59); Monocytes % (auto) 2.2 %; Neutrophils # (auto) 33.62 K/uL (1.40-6.50); Neutrophils % (auto) 90.2 %; Platelet Count 287 K/uL (130-400); Polychromasia 1+; RDW Coefficient of Variation 18.5 % (11.5-14.5); RDW Standard Deviation 60.9 fL (36.4-46.3); Red Blood Count 3.77 M/uL (4.20-5.40); White Blood Count 37.27 K/ul (4.8-10.8)
--- NOTE | 2023-12-06 15:17 | XRay Report ---
XR chest 1V portable HISTORY: 58 years-old Female Sepsis acute sepsis COMPARISON: CTA chest of same day TECHNIQUE: AP view the chest FINDINGS: Sigmoid thoracolumbar scoliosis. Left IJ catheter distal tip terminates in the SVC. Mild cardiomegaly . No pneumothorax or pleural effusion. Extensive intermixed interstitial and alveolar opacities. Bone s appear grossly intact. Surgical device within the stomach. Right upper quadrant surgical clips. IMPRESSION: Extensive intermixed interstitial and alveolar opacities without pleural effusion. Pneumo mayi versus ARDS are differential considerations. ACT 112: Negative or not required by law. The above report was generated using voice recognition software. It may contain grammatical, syntax o r spelling errors. Electronically signed by: Maikel Lafleur M.D. 12/06/2023 3:16 PM
--- NOTE | 2023-12-06 15:34 | CT Scan Report ---
CT angio neck with con CLINICAL HISTORY: 58 years-old Female with altered mental status. Acutely altered mental status COMPARISON STUDY: CT abdomen same day TECHNIQUE: Following the IV administration of 120 mL of Optiray, CT angiogram of the neck was perform ed from the aortic arch to the skull base. Images are reviewed in the axial, sagittal, and coronal pl anes. 3-D MIPS images are created and assessed. IV contrast was administered without complication. Al l measurements were calculated based on NASCET criteria. A dose lowering technique was utilized adhe ring to the principles of ALARA. CT DOSE: 1083.39 mGy.cm FINDINGS: Three-vessel morphology of the thoracic aortic arch. There is patency of the innominate and imaged brandon bclavian arteries. The common and internal carotid arteries are patent. Codominant and patent vertebr al arteries. No aneurysm, dissection, high-grade stenosis or arterial occlusion. Intralobular septal thickening with groundglass densities in the left greater than right lungs. Mild emphysema. Left IJ catheter is partially imaged. Unremarkable thyroid. No acute fracture. IMPRESSION: 1. Unremarkable CTA of the neck. 2. Partially imaged left greater than right pulmonary opacities, better evaluated on the same day CTA of the chest. ACT 112: Negative or not required by law. The above report was generated using voice recognition software. It may contain grammatical, syntax o r spelling errors. Electronically signed by: Maikel Lafleur M.D. 12/06/2023 3:31 PM
--- NOTE | 2023-12-06 15:47 | History & Physical Report ---
Date of Service December 06, 2023 Assessment & Plan (1) Acute hypoxemic respiratory failure: (2) Hypotension: (3) Sepsis: (4) Pneumonia: (5) Acidosis: Plan: Patient is 58 year old female with PMH chronic malabsorption syndrome post bypass, severe protein calorie malnutrition on TPN, iron deficiency anemia, copper deficiency, h/o right nephrectomy in 2022, bipolar disorder, anxiety, depression, tobacco use, migraine headache, nonspecific white matter changes, myelopathy and others listed below presented to ER with multiple medical complaints including SOB, dry mouth and speech changes. Denies known fever/chills, N/V, cough, CP Upon arrival to ER patient noted to be hypotensive and hypoxic in 70's. In ER afebrile, P: 94, R: 30, BP: 87/56, 78% on RA CTA Chest: No pulmonary embolus. Groundglass opacities compatible with pneumonia and/or aspiration. CT Head, CTA Head & neck: unremarkable WBC: 36.7. Lactate: 1.6, procalcitonin: 4.5 Currently on 10L nonrebreather with O2 sat low 90's UA pending Drug screen pending, blood culture, urine culture pending Suspect sepsis secondary to pneumonia. DDx: UTI, line infection In ER given meropenem, vancomycin, 2 L NSS Patient reassessed is currently alert and oriented, saturating low 90s on 10 L nonrebreather, brisk capillary refill, tachypnea, heart rate high 90s. 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 Recent ROBINSON end of 10/2023 with Cr: 1.6 on 12/03 and 1.7 on 11/21. Prior baseline Cr: 1.0-1.2 IVF in ER. Did have CTA today in ER Monitor renal functions Nephrology consult (8) Protein calorie malnutrition: Plan: S/P bypass BMI: 15 On TPN 4 days a week Nutrition consult (9) Depression with anxiety: Plan: History Bipolar disorder On home buspirone, duloxetine, olanzapine (10) H/O migraine: Plan: Denies current SMALLWOOD (11) Tobacco use: Plan: Smokes 1/2ppd Smoking cessation encouraged DVT Prophylaxis Heparin SQ Disposition to ICU DNR/DNI as per discussion with pt Follows with Dr Mobley for routine care Pt was seen and care coordinated with Dr Mitchell. See addendum I spent a total of 78 minutes reviewing notes, outpatient records, labs, medication, coordinating, documenting and providing care for this patient excluding time spent in the performance of separately billed services. History of Present Illness Chief Complaint: SOB Primary Care Provider: Evelyn Mobley MD Patient is 58 year old female with PMH chronic malabsorption syndrome post bypass, severe protein calorie malnutrition on TPN, iron deficiency anemia, copper deficiency, h/o right nephrectomy in 2022, bipolar disorder, anxiety, depression, tobacco use, migraine headache, nonspecific white matter changes, myelopathy and others listed below presented to ER with multiple medical compla ints including SOB, dry mouth and speech changes. History obtained from patient, patient's friend and outpatient and inpatient chart review. Friend states she picked patient up today and noted she seemed to have some confusion and slurred speech and seemed SOB so brought patient to ER. Upon arrival to ER it is reported patient needed assistance getting out of car and was noted to be hypotensive and hypoxic in 70's. It is reported limited history from patient initially however since being on 10L via oxymask and receiving IVF she has become more alert. Currently patient alert and oriented and states several days started ago with bilateral ear pressure. Denies cough, rhinorrhea, SOB or CP. Denies known fever or chills. She doesn't think she has had any choking. Patient reports today she felt confused and her mouth felt very dry and she had trouble talking because her mouth was so dry. She also reports her vision felt blurry. She doesn't think she had syncopal episode. She reports limited oral intake. Has chronic decreased appetite. Is on TPN 4 nights a week. Her friend did not notice any facial drooping today. Patient denies any extremity weakness. Patient reports past week having lower abdominal pressure and dysuria. Reports ongoing right sided abdominal pain since her nephrectomy. SBP's chronically in 90's per patient report. States bowels always loose and incontinent. Patient denies vomiting however ER nurse noted dried emesis around patient's mouth upon ER arrival. Nurse also noted brown loose stool. +Hemoccult positive. Denies dizziness, neck pain, CP, SOB, cough, hemopytsis, sore throat, ear discharge, extremity edema, rashes, hematuria. Outpatient chart review: Outpatient telemedicine nutrition visit on 12/05/23 Outpatient urology visit with Dr Almonte on 12/04/23 for urinary incontinence. Was prescribed Vesicare however patient has not started yet. 12/04/23 had PICC line dressing change and nurse note reported some erythema around site without noted discharge History hospitalization at [facility] 09/20/23-10/10/23 for malnutrition/failure to thrive, multifocal pneumonia, ROBINSON. Allergies Allergy/AdvReac Type Severity Reaction Status Date / Time amoxicillin Allergy Severe Anaphylaxis Verified 12/06/23 15:52 Penicillins Allergy Severe Anaphylaxis Verified 12/06/23 15:52 Sulfa (Sulfonamide Allergy Severe Anaphylaxis Verified 12/05/22 15:37 Antibiotics) ragweed pollen Allergy Intermediate swelling Verified 12/05/22 15:37 aspirin AdvReac Unknown No an Verified 12/05/22 15:37 allergy- cannot take post-bypass surgery Home Medications Medication Instructions Recorded Confirmed Type ergocalciferol (vitamin D2) 1,250 50,000 unit PO MOWEFR #0 caps 11/26/13 12/06/23 History mcg (50,000 unit) capsule cyanocobalamin (vitamin B-12) 1 dose IM MONTHLY ##0 06/11/14 12/06/23 History 1,000 mcg/mL injection solution diphenoxylate-atropine 2.5 1 tab PO QID PRN Diarrhea #0 tabs 08/02/16 12/06/23 History mg-0.025 mg tablet (Lomotil) rizatriptan 10 mg tablet 10 mg PO DAILY PRN Migraines 11/06/18 12/06/23 History alprazolam 0.25 mg tablet 0.25 mg PO HS PRN Anxiety 06/28/19 12/06/23 History goqtmkpigo-nlibpiedfceqo-mlbvrsrv 1 tab PO Q6H PRN Pain 06/28/19 12/06/23 History 50 mg-325 mg-40 mg tablet acetaminophen 500 mg tablet 500 mg PO Q4H PRN Pain 08/23/20 12/06/23 History calcitriol 0.25 mcg capsule 0.25 mcg PO 3XWK 12/05/22 12/06/23 History calcium carbonate (Oyster Shell 500 mg PO BID 12/05/22 12/06/23 History Calcium 500) duloxetine 60 mg capsule,delayed 120 mg PO DAILY 12/05/22 12/06/23 History release mirtazapine 45 mg tablet 45 mg PO HS 12/05/22 12/06/23 History omeprazole 20 mg capsule,delayed 20 mg PO QAM 12/05/22 12/06/23 History release ondansetron 4 mg disintegrating 4 mg PO Q8H PRN NAUSEA/VOMITING 12/05/22 12/06/23 History tablet promethazine 25 mg tablet 25 mg PO Q6H PRN NAUSEA/VOMITING 12/05/22 12/06/23 History sumatriptan succinate 50 mg tablet 50 mg PO DIRECTED PRN ATTACKS 12/05/22 12/06/23 History PER [facility] tramadol 50 mg tablet 50 mg PO Q8H PRN Pain 12/05/22 12/06/23 History buspirone 5 mg tablet 5 mg PO BID 12/06/23 12/06/23 History olanzapine 5 mg disintegrating 5 mg translingual DAILY 12/06/23 12/06/23 History tablet pregabalin 25 mg capsule 25 mg PO BID 12/06/23 12/06/23 History Past Med/Surg History Problem List (Updated 12/06/23 @ 19:41 by Xin Whitney PA-C) Protein calorie malnutrition History of nephrectomy Pneumonia (Acute) Septic shock (Acute) Acidosis (Acute) Leukocytosis (Acute) Acute hypoxemic respiratory failure (Acute) Elevated procalcitonin (Acute) Elevated troponin (Acute) Acute kidney injury superimposed on chronic kidney disease (Acute) AMS (altered mental status) (Acute) Sepsis (Acute) Gastrostomy tube in place COVID-19 (Acute) COVID-19 virus infection Acute kidney injury (Acute) Acute dehydration (Acute) Irritation around percutaneous endoscopic gastrostomy (PEG) tube site (Acute) Generalized weakness (Acute) Hypotension Admitted 09/15/20 and then again 10/01/20 Hyperparathyroidism PFO (patent foramen ovale) Per records Per cardio consultation 06/29/19= pt had previous ECHO 06/13/19 that showed "trace interatrial shunt and inferoseptal wall motion abnormality could not be excluded " Malabsorption (Chronic) Acute chest pain (Acute) Anemia (Acute) Abnormal ECG (Acute) Chest pain DVT prophylaxis Chronic pain syndrome Tobacco use H/O migraine Anxiety Hypomagnesemia (Acute) Hypokalemia (Acute) Dehydration (Acute) Generalized weakness (Acute) Abdominal pain Acute hypotension (Acute) Hypokalemia (Acute) Diarrhea (Acute) Severe malnutrition Acute kidney injury Ureteral stone with hydronephrosis Encounter for pre-operative examination Hypotension (Acute) Anemia (Acute) Hypomagnesemia (Acute) Hypokalemia (Acute) Acute dehydration (Acute) S/P ureteral stent placement Right flank pain Renal colic on right side Right ureteral calculus Depression with anxiety Migraine headache (Chronic) History of bowel diversion surgery (Chronic) History of cholecystectomy (Chronic) Copper deficiency (Chronic) Anemia (Chronic) S/p 1 unit PRBCs while admitted 10/01/20 to 10/05/20 History of gastric bypass (Chronic ~1999) Medical History Weight loss, unintentional Poor appetite at times Nausea at times Kidney stones Zinc poisoning Surgical History History of lithotripsy History of esophagogastroduodenoscopy (EGD) History of colonoscopy History of cystoscopy with stent placement 08/2020 Hx of cardiac cath jul 01 2019. no stents Family History Mother Coronary heart disease Other No family history of adverse response to anesthesia Social History Smoking Status: Current every day smoker Tobacco Type: Cigarettes packs per day: 1; Cigarettes Per Day: 8-10/day; Second Hand Exposure: No; Do You Dip or Chew Tobacco: No; Hx Alcohol Use: Yes Alcohol type: hard liquor Hx Substance Use: Yes Last Used Substance: Days (ago) Last Used Substance Other:: 12/04/2023 Preferred Language: Hebrew Communication Ability: Effective Visual Impairment: No Limitations Hearing Ability: Normal Lithographic Photographer Apprentice Required: No Beliefs That Will Affect Care: None marital status: Current Living Situation: Spouse current occupational status: employed and disabled 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[employer], 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 Other Information That Helps Us Care for You: No Feels Safe at Home: Yes Safety Concerns: Feels Safe At This Time Assistive Devices: Cane, Glasses and Walker Review of Systems Review of Systems: All systems reviewed & are unremarkable except as noted in HPI & below Physical Exam Physical Exam: PE per Dr Mitchell Results & Data Results & Data Vital Signs (Past 12 Hours) Vital Signs Temp Pulse Pulse Resp BP BP Pulse Ox 12/06/23 15:00 93 H 24 95/47 L 93 12/06/23 14:00 96 H 30 H 95/67 L 95 12/06/23 13:42 99 12/06/23 13:31 93 H 24 93/56 L 100 12/06/23 13:30 88 31 H 93/56 L 97 12/06/23 13:30 78 L 12/06/23 13:30 90 12/06/23 13:07 36.7 C 94 H 30 H 87/56 L 78 L O2 Del Method O2 Flow Rate 12/06/23 15:00 Oxymask 10 12/06/23 14:00 Oxymask 10 12/06/23 13:42 Oxymask 10 12/06/23 13:31 Oxymask 10 12/06/23 13:30 Oxymask 10 12/06/23 13:30 Room Air, Oxymask 0 12/06/23 13:30 12/06/23 13:07 Room Air Laboratory Results Short CBC 12/06/23 Range/Units 13:38 WBC 37.27 H* (4.8-10.8) K/ul Hgb 11.0 L (12.0-16.0) g/dl Hct 33.9 L (37.0-47.0) % Plt Count 287 (130-400) K/uL BMP 12/06/23 13:38 Sodium 140 Potassium 3.4 L Chloride 116 H Carbon Dioxide 11 L BUN 52 H Creatinine 2.20 H Glucose 129 H Calcium 8.6 Liver Function 12/06/23 Range/Units 13:38 Total Bilirubin 0.3 (0.2-1.0) mg/dl Direct Bilirubin 0.1 (0-0.2) mg/dl AST 44 H (13-39) U/L ALT 14 (7-52) U/L Alkaline Phosphatase 212 H (34-104) U/L Albumin 3.8 (3.4-5.0) gm/dl Diagnostic Findings Chest CTA 12/06/23 13:22 CT angio chest PE protocol CLINICAL HISTORY: PE; hypotension; hypoxia TECHNIQUE: Multidetector row helical CT of the chest was performed with angiographic protocol. Coronal and sagittal reformations were obtained. Coronal and sagittal MIPS were obtained from the axial data set and were submitted for review. Automated dose lowering techniques and/or adjustment according to patient size were utilized for this exam. Comparison: Comparison is made to CT chest 04/06/2023 FINDINGS: Lungs and pleura: Diffuse groundglass opacities have significantly increased from prior exam. Bronchiectasis is seen. Heart and pericardium: Heart size is normal. No pericardial effusion. Vessels: No evidence of pulmonary embolism. Mediastinum and gary: Unremarkable. Chest wall and lower neck: Unremarkable. Abdomen: Patient is status post cholecystectomy. Bones: Scoliosis is seen. IMPRESSION: 1. No pulmonary embolus. 2. Worsening groundglass opacities compatible with pneumonia and/or aspiration. ACT 112: Negative or not required by law. Electronically signed by: Tyrell Wayne M.D. 12/06/2023 3:10 PM Chest X-Ray 12/06/23 13:22 XR chest 1V portable HISTORY: 58 years-old Female Sepsis acute sepsis COMPARISON: CTA chest of same day TECHNIQUE: AP view the chest FINDINGS: Sigmoid thoracolumbar scoliosis. Left IJ catheter distal tip terminates in the SVC. Mild cardiomegaly. No pneumothorax or pleural effusion. Extensive intermixed interstitial and alveolar opacities. Bones appear grossly intact. Surgical device within the stomach. Right upper quadrant surgical clips. IMPRESSION: Extensive intermixed interstitial and alveolar opacities without pleural effusion. Pneumonia versus ARDS are differential considerations. ACT 112: Negative or not required by law. The above report was generated using voice recognition software. It may contain grammatical, syntax or spelling errors. Electronically signed by: Maikel Lafleur M.D. 12/06/2023 3:[address] 12/06/23 13:22 CT head/brain wo con CLINICAL HISTORY: altered mental status Technique: Contiguous axial CT images of the head were acquired from the base of the skull to the vertex without intravenous contrast administration. Images were viewed in brain, subdural and bone windows. Automated dose lowering techniques and/or adjustment according to patient size were utilized for this exam. Comparison: None available at the time of this dictation. Findings: The ventricles, basal cisterns, and cerebral sulci are normal. There is no acute intracranial hemorrhage or evidence of acute territorial infarction. Neither mass effect, shift of the midline structures, nor abnormal extra-axial fluid collections are shown. Imaged portions of the paranasal sinuses and mastoid air cells are clear. The orbits appear normal. There are no acute fractures of the calvaria or scalp swelling. Impression: No acute intracranial hemorrhage, no evidence of acute territorial infarction or other acute intracranial disease process. ACT 112: Negative or not required by law. Electronically signed by: Tyrell Wayne M.D. 12/06/2023 3:07 PM Head CTA 12/06/23 13:22 CT angio head w con CLINICAL HISTORY: 58 years-old Female with altered mental status. Acutely altered mental status COMPARISON STUDY: CTA neck and head CT studies of same day TECHNIQUE: Following the IV administration of 120 cc of Optiray, CT angiogram of the brain was performed from the skull base to the vertex. Images are reviewed in the axial, sagittal, and coronal planes. 3-D MIPS images are created and assessed. IV contrast was administered without complication. All measurements were obtained according to NASCET criteria. A dose lowering technique was utilized adhering to the principles of ALARA. FINDINGS: CT ANGIOGRAM OF THE BRAIN: The imaged bilateral internal carotid arteries are patent. The bilateral anterior and middle cerebral arteries are also patent. The vertebrobasilar system and posterior cerebral arteries are widely patent. There is no aneurysm, high-grade stenosis, or proximal branch occlusion identified. Dural sinuses appear patent. Involutional changes with chronic microvascular ischemic disease. The study is motion degraded. IMPRESSION: Unremarkable CTA of the head. ACT 112: Negative or not required by law. The above report was generated using voice recognition software. It may contain grammatical, syntax or spelling errors. Electronically signed by: Maikel Lafleur M.D. 12/06/2023 3:50 PM Neck CTA 12/06/23 13:22 CT angio neck with con CLINICAL HISTORY: 58 years-old Female with altered mental status. Acutely altered mental status COMPARISON STUDY: CT abdomen same day TECHNIQUE: Following the IV administration of 120 mL of Optiray, CT angiogram of the neck was performed from the aortic arch to the skull base. Images are reviewed in the axial, sagittal, and coronal planes. 3-D MIPS images are created and assessed. IV contrast was administered without complication. All measurements were calculated based on NASCET criteria. A dose lowering technique was utilized adhering to the principles of ALARA. CT DOSE: 1083.39 mGy.cm FINDINGS: Three-vessel morphology of the thoracic aortic arch. There is patency of the innominate and imaged subclavian arteries. The common and internal carotid arteries are patent. Codominant and patent vertebral arteries. No aneurysm, dissection, high-grade stenosis or arterial occlusion. Intralobular septal thickening with groundglass densities in the left greater than right lungs. Mild emphysema. Left IJ catheter is partially imaged. Unremarkable thyroid. No acute fracture. IMPRESSION: 1. Unremarkable CTA of the neck. 2. Partially imaged left greater than right pulmonary opacities, better evaluated on the same day CTA of the chest. ACT 112: Negative or not required by law. The above report was generated using voice recognition software. It may contain grammatical, syntax or spelling errors. Electronically signed by: Maikel Lafleur M.D. 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 Patient denied any focal weakness of arms and legs/denied facial droop. Patient denied any cough or fever or chest pain. Patient reports right lower belly pain, reports pain and burning with passing urine. patient smokes half pack a day, drinks alcohol once a month, denies recreational drug use. Likely complicated UTI ISO right nephrectomy history Possible pneumonia/possible aspiration pneumonia: CTA chest with no PE, worsening groundglass opacities. Respiratory pathogen panel negative. 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 Blood pressure very soft despite 2 L IV fluid in the ED, patient will be monitored in ICU overnight for possible need of pressors. Will continue with vancomycin and meropenem started at the ED. Follow urine Analysis and blood culture. Follow-up toxicology screen. CTA head and neck and CT head with no acute finding. Hypokalemia: Replete KCl, monitor. Metabolic acidosis, Acute kidney injury iso ho rt nephrectomy: ivf, monitor labs, nephro consult. Demand ischemia: Troponin minimally elevated, flat trend, patient with no chest pain, likely secondary to acute illness. EKG w/ no acute st t changes. Chronic protein calorie malnutrition: On TPN, nutrition consult On Exam GENERAL: Alert and oriented x3. NAD, on RA. HEENT: No pallor, no icterus. Pupils equal, round and reactive to light. Oral mucosa moist. NECK: No JVD, no neck masses. HEART: S1 and S2 heard. Regular rate and rhythm. No murmur, no gallop. RESPIRATORY SYSTEM: Normal AP diameter. No accessory muscle use. No wheezing, no crackles. ABDOMEN: Soft, bowel sounds present, nontender, no distention. CENTRAL NERVOUS SYSTEM: No facial droop. Speech is clear. Obeys simple commands. Moves extremities. EXTREMITIES: No edema, no erythema seen. I have seen and examined the patient and have discussed the case with the provider above. I agree with the assessment and plan as stated.
[2023-12-06] MEDS: VANCOMYCIN HCL 750 MG in SODIUM CHLORIDE 0.9% 250 ML IV ONE (15:51)
--- NOTE | 2023-12-06 15:52 | CT Scan Report ---
CT angio head w con CLINICAL HISTORY: 58 years-old Female with altered mental status. Acutely altered mental status COMPARISON STUDY: CTA neck and head CT studies of same day TECHNIQUE: Following the IV administration of 120 cc of Optiray, CT angiogram of the brain was perfor med from the skull base to the vertex. Images are reviewed in the axial, sagittal, and coronal planes . 3-D MIPS images are created and assessed. IV contrast was administered without complication. All me asurements were obtained according to NASCET criteria. A dose lowering technique was utilized adherin g to the principles of ALARA. FINDINGS: CT ANGIOGRAM OF THE BRAIN: The imaged bilateral internal carotid arteries are patent. The bilateral anterior and middle cerebral arteries are also patent. The vertebrobasilar system and posterior cerebral arteries are widely deshpande nt. There is no aneurysm, high-grade stenosis, or proximal branch occlusion identified. Dural sinuses appear patent. Involutional changes with chronic microvascular ischemic disease. The study is motion degraded. IMPRESSION: Unremarkable CTA of the head. ACT 112: Negative or not required by law. The above report was generated using voice recognition software. It may contain grammatical, syntax o r spelling errors. Electronically signed by: Maikel Lafleur M.D. 12/06/2023 3:50 PM
[2023-12-06] MEDS: SODIUM CHLORIDE 0.9% 1,000 ML IV STA (16:01)
[2023-12-06] MEDS ORDERED: TPN/PPN CONSULT PHARMACY PRN (17:16)
[2023-12-06 17:17] LABS: Troponin I High Sensitivity 17.4 pg/ml (0-14)
--- NOTE | 2023-12-06 17:33 | Critical Care Consultation ---
Date of Consultation December 06, 2023 Assessment & Plan (1) Pneumonia: (2) Septic shock: (3) Acidosis: (4) Leukocytosis: (5) Acute hypoxemic respiratory failure: (6) Acute kidney injury superimposed on chronic kidney disease: (7) AMS (altered mental status): (8) History of nephrectomy: Plan Reason Critically Ill: 58-year-old female past medical history of protein calorie malnutrition on TPN, bipolar, presented to hospital with shortness of breath, found to have hypoxia and hypotension. Sent to ICU for further management Neuro - [facility] ICU: Negative --Metabolic encephalopathy Likely secondary to sepsis CT head, head CT as well as neck CTA - 12/06/2023 Cardiac - -- Hypotension Likely secondary to sepsis Responded to fluids Continue to monitor, vasopressor support if the MAP stays persistently less than 65 Respiratory - -- Acute hypoxic respiratory failure Likely secondary to multilobar pneumonia Respiratory bio fire negative for everything on 12/06/2023 BNP 208, procalcitonin 4.49 CT chest 12/06/2023 personally reviewed: Patchy groundglass opacities appreciated bilaterally No significant mediastinal lymphadenopathy GI - -- Chronic malabsorption disorder with severe protein calorie moderation Likely post gastric bypass surgery Is on TPN RENAL/LYTES - ---- HAGMA Delta-delta: Less than 1, gap plus nongap Gap could be secondary to starvation ketosis, Monitor - -- Urinary incontinence On Vesicare at home ENDO - -- ICU hypoglycemia protocol HEME - -- Normocytic anemia Monitor H&H ID - -- Multilobar pneumonia Continue broad-spectrum antibiotic Respiratory bio fire negative -- Given history of TPN Empiric coverage with antifungal --Prophylaxis VTE: Heparin GI: None Lines: Left central PICC Diet: N.p.o. Plan: Strict in and out Follow-up nasal MRSA Follow-up random cortisol Empirically start the patient on micafungin Continue with broad-spectrum antibiotics Patient's lactate was negative, start vasopressors if the MAP is less than 60 I have personally spent 62 minutes of critical care time in the direct management of this patient. This is a life/limb threatening event. This includes time spent evaluating patient, direct bedside care, chart review, placing orders, interpretation of diagnostic studies, discussion with consultants, patient, and family members, as well as other required patient management activities. This time is exclusive of all separately billable procedures, and teaching time and separate from and in addition to any other critical care service time. History of Present Illness Attending Physician: Mihir Mitchell MD History of Present Illness 58-year-old female present to the hospital with complaints of shortness of breath Past medical history: Chronic malabsorption s/p gastric bypass, protein calorie malnutrition on TPN, history of right nephrectomy 2022, bipolar disorder In the ED patient was found to be hypotensive and hypoxic. ICU were consulted for further management. Patient friend who picked her up noticed some speech changes and confusion. At the time of examination patient was awake alert oriented x 3 Systolic blood pressure was in the mid to high 80s. Her normal systolic blood pressure is in the low 90s. She denied any abdominal pain Did complain of shortness of breath. No fever or chills She is always cold. No diarrhea. Complains of mild dysuria. No blurry vision. No headache Patient is unsure if she vomited and aspirated Allergies Allergy/AdvReac Type Severity Reaction Status Date / Time amoxicillin Allergy Severe Anaphylaxis Verified 12/06/23 15:52 Penicillins Allergy Severe Anaphylaxis Verified 12/06/23 15:52 Sulfa (Sulfonamide Allergy Severe Anaphylaxis Verified 12/05/22 15:37 Antibiotics) ragweed pollen Allergy Intermediate swelling Verified 12/05/22 15:37 aspirin AdvReac Unknown No an Verified 12/05/22 15:37 allergy- cannot take post-bypass surgery Home Medications Medication Instructions Recorded Confirmed Type ergocalciferol (vitamin D2) 1,250 50,000 unit PO MOWEFR #0 caps 11/26/13 12/06/23 History mcg (50,000 unit) capsule cyanocobalamin (vitamin B-12) 1 dose IM MONTHLY ##0 06/11/14 12/06/23 History 1,000 mcg/mL injection solution diphenoxylate-atropine 2.5 1 tab PO QID PRN Diarrhea #0 tabs 08/02/16 12/06/23 History mg-0.025 mg tablet (Lomotil) rizatriptan 10 mg tablet 10 mg PO DAILY PRN Migraines 11/06/18 12/06/23 History alprazolam 0.25 mg tablet 0.25 mg PO HS PRN Anxiety 06/28/19 12/06/23 History qkermdyvkg-lxhvxcsesyhtu-pwpxnucz 1 tab PO Q6H PRN Pain 06/28/19 12/06/23 History 50 mg-325 mg-40 mg tablet acetaminophen 500 mg tablet 500 mg PO Q4H PRN Pain 08/23/20 12/06/23 History calcitriol 0.25 mcg capsule 0.25 mcg PO 3XWK 12/05/22 12/06/23 History calcium carbonate (Oyster Shell 500 mg PO BID 12/05/22 12/06/23 History Calcium 500) duloxetine 60 mg capsule,delayed 120 mg PO DAILY 12/05/22 12/06/23 History release mirtazapine 45 mg tablet 45 mg PO HS 12/05/22 12/06/23 History omeprazole 20 mg capsule,delayed 20 mg PO QAM 12/05/22 12/06/23 History release ondansetron 4 mg disintegrating 4 mg PO Q8H PRN NAUSEA/VOMITING 12/05/22 12/06/23 History tablet promethazine 25 mg tablet 25 mg PO Q6H PRN NAUSEA/VOMITING 12/05/22 12/06/23 History sumatriptan succinate 50 mg tablet 50 mg PO DIRECTED PRN ATTACKS 12/05/22 12/06/23 History PER [facility] tramadol 50 mg tablet 50 mg PO Q8H PRN Pain 12/05/22 12/06/23 History buspirone 5 mg tablet 5 mg PO BID 12/06/23 12/06/23 History olanzapine 5 mg disintegrating 5 mg translingual DAILY 12/06/23 12/06/23 History tablet pregabalin 25 mg capsule 25 mg PO BID 12/06/23 12/06/23 History Patient History Medical History Weight loss, unintentional Poor appetite at times Nausea at times Kidney stones Zinc poisoning Surgical History History of lithotripsy History of esophagogastroduodenoscopy (EGD) History of colonoscopy History of cystoscopy with stent placement 08/2020 Hx of cardiac cath jul 01 2019. no stents Family History Mother Coronary heart disease Other No family history of adverse response to anesthesia Social History Smoking Status: Current every day smoker Tobacco Type: Cigarettes packs per day: 1; Cigarettes Per Day: 8-10/day; Second Hand Exposure: No; Do You Dip or Chew Tobacco: No; Hx Alcohol Use: Yes Alcohol type: hard liquor Hx Substance Use: Yes Last Used Substance: Days (ago) Last Used Substance Other:: 12/04/2023 Preferred Language: Hungarian Communication Ability: Effective Visual Impairment: No Limitations Hearing Ability: Normal Health Care Facility Administrator Required: No Beliefs That Will Affect Care: None marital status: Current Living Situation: Spouse current occupational status: employed and disabled 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[employer], 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 Other Information That Helps Us Care for You: No Feels Safe at Home: Yes Safety Concerns: Feels Safe At This Time Assistive Devices: Cane, Glasses and Walker Review of Systems 2 Review of Systems: All systems reviewed & are unremarkable except as noted in HPI & below Physical Exam 2 Physical Exam: Constitutional: No acute distress HEENT: EOMI, PERRLA Respiratory system: Decreased air entry bilaterally, no wheeze, no rhonchi, positive crackles bilaterally anteriorly and posteriorly CVS: S1-S2 positive, no murmurs or gallops Abdomen: Soft, nontender, nondistended, positive bowel sounds x4 Extremities: +1 pulses bilaterally radialis/ dorsalis pedis, no cyanosis, minimal pitting edema bilateral lower extremity Neuro: Awake alert oriented x3 Psych: Normal mood and affect G/U: Positive Yin Skin: no rashes, warm and dry Lymphatic: no cervical or axillary lymphadenopathy Results & Data Results & Data Vital Signs (Past 12 Hours) Vital Signs Temp Pulse Pulse Resp BP BP Pulse Ox 12/06/23 17:01 35.6 C L 12/06/23 16:06 74 18 98/51 L 95 12/06/23 15:00 93 H 24 95/47 L 93 12/06/23 14:00 96 H 30 H 95/67 L 95 12/06/23 13:42 99 12/06/23 13:31 93 H 24 93/56 L 100 12/06/23 13:30 88 31 H 93/56 L 97 12/06/23 13:30 78 L 12/06/23 13:30 90 12/06/23 13:07 36.7 C 94 H 30 H 87/56 L 78 L O2 Del Method O2 Flow Rate 12/06/23 17:01 12/06/23 16:06 Oxymask 10 12/06/23 15:00 Oxymask 10 12/06/23 14:00 Oxymask 10 12/06/23 13:42 Oxymask 10 12/06/23 13:31 Oxymask 10 12/06/23 13:30 Oxymask 10 12/06/23 13:30 Room Air, Oxymask 0 12/06/23 13:30 12/06/23 13:07 Room Air Laboratory Results 12/06/23 13:38 12/06/23 13:38 Coding Level of Care Code 60628 CRITICAL CARE 1ST 30-74M Diagnoses Pneumonia J18.9 Septic shock A41.9; R65.21 Acidosis E87.20 Leukocytosis D72.829 Acute hypoxemic respiratory failure J96.01 Acute kidney injury superimposed on chronic kidney disease N17.9; N18.9 AMS (altered mental status) R41.82 History of nephrectomy Z90.5 Time Spent (min) 62
[2023-12-06] MEDS: SODIUM CHLORIDE 0.9% 250 ML IV STA (18:11)
[2023-12-06 18:14] LABS: Thyroid Stimulating Hormone 1.251 uIu/ml (0.300-4.500)
[2023-12-06] MEDS: CASPOFUNGIN 70 MG in SODIUM CHLORIDE 0.9% 250 ML IV ONE (18:33)
--- NOTE | 2023-12-06 18:35 | Pharmacy Report ---
Pharmacy PK ABX Note - Date of Service December 06, 2023 - Assessment and Plan Laboratory Tests 12/06/23 13:38 WBC 37.27 H* Creatinine 2.20 H Est Cr Clr Drug Dosing 16.2 Baseline serum creat 0.94-2.2 (Aug-November 2023) Assessment 58 year old F receiving VANC/CASPOFUNGIN for treatment of ACUTE RESP FAILURE. Pertinent microbiologic data pending. * Day # 1 of antimicrobial therapy. Plan Vancomycin * Loading dose: 750mg (20mg/kg) IV x 1 * Maintenance dose: 500mg IV x1 12/06/23 0230 * Regimen is predicted to achieve target AUC/HONEY of 400-600 mg/L.hr * Random level ordered for: 12/07/23 1200 Pharmacy will continue to follow and will adjust dose/frequency as necessary. Thank you. Pharmacy has transitioned to AUC monitoring for vancomycin. AUC/HONEY is the preferred PK/PD target and is associated with decreased risk of nephrotoxicity compared to traditional trough targets.
[2023-12-06] MEDS: MEROPENEM 500 MG in SYRINGE 0 ML IV SCH (19:10)
[2023-12-06 19:17] LABS: Appearance Urine Cloudy (Clear); Bacteria Urine Automated 4+ (None Seen); Bilirubin Urine Negative (Negative); Blood Urine Trace (Negative); Color Urine Yellow; Glucose Urine UA Negative (Negative); Ketones Urine Negative (Negative); Leukocyte Esterase Urine 1+ (Negative); Nitrite Urine Positive (Negative); Protein Urine 1+ (Negative); Specific Gravity Urine 1.043 (1.000-1.030); Urobilinogen Urine Negative (Negative); WBC Urine Automated 21-50 /hpf (0-5); pH Urine 5.5 (4.5-7.5)
[2023-12-06 19:39] LABS: Potassium Random Urine 33.8 mmol/L
[2023-12-06] MEDS: POTASSIUM CHLORIDE CRTAB 20 MEQ TABCR PO ONE (19:39)
[2023-12-06 19:47] LABS: Amphetamines+Metham, Urine Neg (Neg); Barbiturates, Urine Neg (Neg); Benzodiazepine, Urine Neg (Neg); Cocaine, Urine Neg (Neg); Creatinine Urine Random 44.1 mg/dl; Fentanyl, Urine Neg (Neg); MDMA (Ecstacy), Urine Neg (Neg); Marijuana, Urine Neg (Neg); Methadone, Urine Neg (Neg); Opiate, Urine Neg (Neg); Phencyclidine, Urine Neg (Neg)
[2023-12-06] MEDS: HYDROCORTISONE SOD 100 MG in SYRINGE 0 ML IV STA (20:04)
[2023-12-06] MEDS: ICU Protocol for HYPERglycemia SCH (20:05)
[2023-12-06] MEDS: HEPARIN SOD 5,000 UNIT/0.5 ML VIAL SQ SCH (20:21)
[2023-12-06] MEDS: ACETAMINOPHEN 1,000 MG/100 ML VIAL IV PRN (20:37)
[2023-12-06 21:01] LABS: BUN Creatinine Ratio 26.4 (10-20); Calcium 7.5 mg/dl (8.6-10.3); Creatinine Clr Calc Pharmacy 21.2 ml/min; Est GFR (African American) 36.3 ml/min; Est GFR (Non-African American) 31.3 ml/min; Potassium 3.3 mmol/L (3.5-5.1)
[2023-12-07] MEDS: HYDROCORTISONE SOD 50 MG in SYRINGE 0 ML IV SCH (00:26)
[2023-12-07] MEDS: VANCOMYCIN HCL 500 MG in NSS 100mL IV SCH (03:30)
[2023-12-07] MEDS: PLASMA-LYTE A 1,000 ML IV SCH (04:02)
[2023-12-07 06:29] LABS: Albumin Level 2.4 gm/dl (3.4-5.0); BUN Creatinine Ratio 25.8 (10-20); Bilirubin,Total 0.2 mg/dl (0.2-1.0); Calcium 7.6 mg/dl (8.6-10.3); Est GFR (African American) 39.3 ml/min; Est GFR (Non-African American) 33.9 ml/min; Globulin 2.4 gm/dl (2.5-4.0); Magnesium 1.6 mg/dl (1.7-2.4); Phosphorus 4.1 mg/dl (2.5-4.9); Potassium 3.5 mmol/L (3.5-5.1); Total Protein 4.8 gm/dl (6.0-8.3)
[2023-12-07] MEDS ORDERED: STAT IV/IM STA (06:31)
[2023-12-07 06:32] LABS: Hemoglobin 8.7 g/dl (12.0-16.0); Mean Corpuscular Hgb Conc 32.2 g/dL (32.0-36.0); Mean Platelet Volume 12.4 fL (9.4-12.4); Platelet Count 278 K/uL (130-400); RDW Coefficient of Variation 18.6 % (11.5-14.5); RDW Standard Deviation 61.5 fL (36.4-46.3); White Blood Count 39.08 K/ul (4.8-10.8)
[2023-12-07 06:43] LABS: Basophils # (auto) 0.12 K/uL (0.00-0.20); Basophils % (auto) 0.3 %; Echinocytes 2+; Immature Granulocytes # (auto) 0.69 K/uL (0.01-0.20); Immature Granulocytes % (auto) 1.8 %; Lymphocytes # (auto) 1.06 K/uL (1.20-3.40); Lymphocytes % (auto) 2.7 %; Monocytes # (auto) 0.42 K/uL (0.11-0.59); Monocytes % (auto) 1.1 %; Neutrophils # (auto) 36.79 K/uL (1.40-6.50); Neutrophils % (auto) 94.1 %; Polychromasia 1+
[2023-12-07] MEDS: POTASSIUM CHLORIDE / WTR 10 MEQ/100 ML PLCT IV SCH ×2 (06:54→16:48)
[2023-12-07] MEDS: MAGNESIUM SULFATE / D5W 1 GM/100 ML BAG IV SCH ×2 (06:54→16:48)
[2023-12-07] MEDS: SODIUM BICARBONATE 8.4% 100 MEQ in DEXTROSE 5% 1,000 ML IV SCH (06:55)
[2023-12-07] MEDS: SODIUM BICARB 8.4% INJ 50 MEQ/50 ML SYR IV STA (06:55)
[2023-12-07 07:30] LABS: Base Excess VBG -18.6 mEq/L; HCO3 VBG 9 mmol/L; Oxygen Saturation VBG 77.5 %; PCO2 VBG 26 mmHg (38-50); PO2 VBG 46 mmHg; pH VBG 7.14 (7.36-7.41)
--- NOTE | 2023-12-07 07:43 | Critical Care Progress Note ---
Date of Service December 07, 2023 Assessment & Plan (1) Pneumonia: (2) Septic shock: (3) Acidosis: (4) Leukocytosis: (5) Acute hypoxemic respiratory failure: (6) Acute kidney injury superimposed on chronic kidney disease: (7) AMS (altered mental status): (8) History of nephrectomy: Plan Reason Critically Ill: 58-year-old female past medical history of protein calorie malnutrition on TPN, bipolar, presented to hospital with shortness of breath, found to have hypoxia and hypotension. Sent to ICU for further management Neuro - [facility] ICU: Negative --Metabolic encephalopathy Likely secondary to sepsis CT head, head CT as well as neck CTA - 12/06/2023 Cardiac - -- Hypotension Likely secondary to sepsis Responded to fluids Random cortisol 14.29 Continue to monitor, vasopressor support if the MAP stays persistently less than 65 Respiratory - -- Acute hypoxic respiratory failure Likely secondary to multilobar pneumonia, possibly aspiration Bedside speech therapy evaluation shows high probability of aspiration, keep patient n.p.o. Respiratory bio fire negative for everything on 12/06/2023 BNP 208, procalcitonin 4.49 CT chest 12/06/2023 personally reviewed: Patchy groundglass opacities appreciated bilaterally No significant mediastinal lymphadenopathy GI - -- Chronic malabsorption disorder with severe protein calorie moderation Likely post gastric bypass surgery Is on TPN RENAL/LYTES - -- HAGMA Delta-delta: Less than 1, gap plus nongap Gap could be secondary to starvation ketosis, Monitor -- Metabolic acidosis is getting worse Urine light search positive gap show urinary source is one of the reasons for gap Patient also has significant surgeries and malabsorption syndrome, due to lactic acidosis might also be playing a role - -- Urinary incontinence On Vesicare at home ENDO - -- ICU hypoglycemia protocol HEME - -- Normocytic anemia Monitor H&H ID - --Gram-negative bacilli in the urine Continue with antibiotics Follow-up sensitivity -- Multilobar pneumonia Continue broad-spectrum antibiotic Respiratory bio fire negative -- Given history of TPN Empiric coverage with antifungal --Prophylaxis VTE: Heparin GI: None Lines: Left central PICC Diet: N.p.o. Plan: In/out: +3.5 L, urine output 778 DC all IV fluids, continue with bicarb drip Given the low random cortisol, continue with hydrocortisone tapering dose Continue with micafungin for at least 48 hours Vancomycin to be discontinued. Continue with cefepime for gram-negative bacilli in the urine Start vasopressors if the MAP is less than 60 Please note the above document was generated using voice recognition software. It may contain grammatical, syntax or spelling errors.Any formal questions or concerns about the content, text or information contained within the body of this dictation should be directly addressed to the provider for clarification. Admission and Anticipated Discharge Date Admission Date: December 06, 2023 Subjective Patient seen and examined at bedside. No acute distress. Overnight patient was hypoxic and she refused BiPAP She was on 80%, 30 L of high flow saturating 96-97%. I went down to 70 L She has waxing and waning of her mental status. Systolic blood pressure was in the mid 80s with MAP around 65-66. She was asking for something to eat. Review of Systems 2 Review of Systems: All systems reviewed & are unremarkable except as noted in Subjective Physical Exam 2 Physical Exam: Constitutional: No acute distress HEENT: EOMI, PERRLA Respiratory system: Decreased air entry bilaterally, no wheeze, no rhonchi, positive crackles bilaterally anteriorly and posteriorly CVS: S1-S2 positive, no murmurs or gallops Abdomen: Soft, nontender, nondistended, positive bowel sounds x4 Extremities: +1 pulses bilaterally radialis/ dorsalis pedis, no cyanosis, minimal pitting edema bilateral lower extremity Neuro: Awake alert oriented to self Psych: Normal mood and affect G/U: Positive Yin Skin: no rashes, warm and dry Lymphatic: no cervical or axillary lymphadenopathy Results & Data Results & Data Vital Signs (Past 12 Hours) Vital Signs Temp Pulse Pulse Resp BP BP BP 12/07/23 07:09 89 25 H 12/07/23 07:01 92/56 L 12/07/23 06:54 87 26 H 12/07/23 06:09 80 28 H 12/07/23 06:00 105/55 L 12/07/23 05:00 96 H 33 H 12/07/23 05:00 90/56 L 12/07/23 04:49 99 H 18 12/07/23 04:27 90/57 L 12/07/23 04:00 92 H 26 H 12/07/23 04:00 87/56 L 12/07/23 03:25 36.7 C 12/07/23 03:09 100 H 27 H 12/07/23 03:01 86/65 L 12/07/23 02:00 97 H 28 H 83/54 L 12/07/23 01:08 91/51 L 12/07/23 01:00 97 H 26 H 12/07/23 00:54 36.4 C L 12/07/23 00:04 93/56 L 12/07/23 00:03 102 H 28 H 12/06/23 23:46 106 H 18 12/06/23 23:36 105 H 28 H 12/06/23 23:28 103 H 12/06/23 23:03 104 H 27 H 12/06/23 23:00 89/56 L 12/06/23 22:21 101 H 18 12/06/23 22:11 93/54 L 12/06/23 22:04 81/56 L 12/06/23 22:02 75/49 L 12/06/23 22:00 80/54 L 12/06/23 21:57 113 H 20 12/06/23 21:06 97 H 21 92/43 L 12/06/23 20:15 80 25 H 93/54 L 12/06/23 19:45 102 H 20 Pulse Ox O2 Del Method O2 Flow Rate FiO2 12/07/23 07:09 94 12/07/23 07:01 12/07/23 06:54 95 12/07/23 06:09 97 12/07/23 06:00 12/07/23 05:00 85 L 12/07/23 05:00 12/07/23 04:49 99 High Flow Nasal Cannula 30 100 12/07/23 04:27 12/07/23 04:00 97 12/07/23 04:00 12/07/23 03:25 12/07/23 03:09 97 12/07/23 03:01 12/07/23 02:00 95 12/07/23 01:08 12/07/23 01:00 98 12/07/23 00:54 12/07/23 00:04 12/07/23 00:03 12/06/23 23:46 93 High Flow Nasal Cannula 30 100 12/06/23 23:36 12/06/23 23:28 12/06/23 23:03 12/06/23 23:00 12/06/23 22:21 94 12/06/23 22:11 12/06/23 22:04 12/06/23 22:02 12/06/23 22:00 12/06/23 21:57 97 12/06/23 21:06 95 12/06/23 20:15 96 12/06/23 19:45 92 High Flow Nasal Cannula 30 100 Laboratory Results 12/07/23 05:32 12/07/23 05:32 Coding Level of Care Code 07048 SUB INP/OBS CARE 3/50MIN Diagnoses Pneumonia J18.9 Septic shock A41.9; R65.21 Acidosis E87.20 Leukocytosis D72.829 Acute hypoxemic respiratory failure J96.01 Acute kidney injury superimposed on chronic kidney disease N17.9; N18.9 AMS (altered mental status) R41.82 History of nephrectomy Z90.5
[2023-12-07 08:09] LABS: Appearance Urine Clear (Clear); Bacteria Urine Automated None Seen (None Seen); Bilirubin Urine Negative (Negative); Blood Urine Negative (Negative); Color Urine Yellow; Epithelial Cell Urine Auto 0-2 /hpf (0-2); Glucose Urine UA Negative (Negative); Ketones Urine Negative (Negative); Leukocyte Esterase Urine Negative (Negative); Nitrite Urine Negative (Negative); Protein Urine 2+ (Negative); RBC Urine Automated 0-2 /hpf (0-2); Specific Gravity Urine 1.039 (1.000-1.030); Urobilinogen Urine Negative (Negative); pH Urine 5.5 (4.5-7.5)
[2023-12-07] MEDS: CEFEPIME 2,000 MG in SYRINGE 0 ML IV STA (08:38)
--- NOTE | 2023-12-07 14:33 | Nephrology Consultation ---
Date of Consultation December 07, 2023 Assessment & Plan (1) Acute kidney injury: ROBINSON in the setting of Septic Shock with pneumonia. even though creat of 1.6 may not appear high it is high for such a cechectic patient. Creat trending down so is a good sign with urine output. ROBINSON is from [facility] in a vulnerable patient with pre existing CKD and now with Pneumonia/sepsis. watch I and O. be careful with iv fluid as she weighs only 36 kilo, making about 40 ml/hr of urine last 8 hrs so not oliguric based on body weight. Check labs again at 3 PM. may have to lower fluid rate after that. Also has UTI. (2) Acute hypoxemic respiratory failure: needing high o2. In ICU and still SOB (3) Acidosis: Bicarb dropped really low. has metabolic acidosis and likely some resp component also. on Bicarb drip 100 meq since AM. continue that and adjust after labs at 3 PM. maybe lower therate but continue bicarb overnight at a lower rate (4) Septic shock: BP was very low but now is baseline. Abx and Iv fluid and pressors as needed. no pressors currently (5) Pneumonia: as per imaging, s/s and labs Plan Case complexity high. time spent 50 mins History of Present Illness Reason for Consultation: ROBINSON and met acidosis Attending Physician: Lea Mayfield MD History of Present Illness 58/F with chronic malabsorption syndrome s/p gastric bypass, severe protein calorie malnutrition on TPN, iron deficiency anemia, copper deficiency, h/o right nephrectomy in 2022, bipolar disorder, anxiety, depression, tobacco use, migraine headache, nonspecific white matter changes, myelopathy presented to ER with SOB, dry mouth and speech changes. Friend picked patient up and noted confusion and slurred speech and SOB so she brought patient to ER. Upon arrival to ER patient needed assistance getting out of car and was noted to be hypotensive and hypoxic in 70's. Since being on 10L via oxymask and receiving IVF she has become more alert. Denies cough, rhinorrhea, SOB or CP. Denies known fever or chills. She doesn't think she has had any choking.Has chronic decreased appetite. Is on TPN 4 nights a week. Patient reports past week having lower abdominal pressure and dysuria. Reports ongoing right sided abdominal pain since her nephrectomy. SBP's chronically in 90's per patient report. States bowels always loose and incontinent. Patient denies vomiting however ER nurse noted dried emesis around patient's mouth upon ER arrival. Nurse also noted brown loose stool. +Hemoccult positive. Denies dizziness, neck pain, CP, SOB, cough, hemopytsis, sore throat, ear discharge, extremity edema, rashes, hematuria. Outpatient urology visit with Dr Almonte on 12/04/23 for urinary incontinence. Was prescribed Vesicare however patient has not started yet. 12/04/23-she had PICC line dressing change and nurse note reported some erythema around site without noted discharge History of hospitalization at [facility] 09/20/23-10/10/23 for malnutrition/failure to thrive, multifocal pneumonia, ROBINSON. Currently in ICU. labs rust she ahd ROBINSON with Creat of 2.2 yesterday and now trending down to 1.6 but bicarb dropped from 22 to current 9 and is on Bicarb drip now. ROS--as in HPI.12 systems reviewed and negative with limitations as patient is confused Physical Exam Physical Exam: Constitutional: very Cachectic. Ill appearing. confused. HEENT: EOMI, PERRLA Respiratory system: Decreased air entry bilaterally, no wheeze, no rhonchi, positive crackles bilaterally anteriorly and posteriorly CVS: S1-S2 positive, no murmurs or gallops Abdomen: Soft, nontender, nondistended, positive bowel sounds x4 Extremities: minimal pitting edema bilateral lower extremity Neuro: Awake alert confused Psych: Normal mood and affect G/U: Positive Yin Allergies Allergy/AdvReac Type Severity Reaction Status Date / Time amoxicillin Allergy Severe Anaphylaxis Verified 12/06/23 15:52 Penicillins Allergy Severe Anaphylaxis Verified 12/06/23 15:52 Sulfa (Sulfonamide Allergy Severe Anaphylaxis Verified 12/05/22 15:37 Antibiotics) ragweed pollen Allergy Intermediate swelling Verified 12/05/22 15:37 aspirin AdvReac Unknown No an Verified 12/05/22 15:37 allergy- cannot take post-bypass surgery Home Medications Medication Instructions Recorded Confirmed Type ergocalciferol (vitamin D2) 1,250 50,000 unit PO MOWEFR #0 caps 11/26/13 12/06/23 History mcg (50,000 unit) capsule cyanocobalamin (vitamin B-12) 1 dose IM MONTHLY ##0 06/11/14 12/06/23 History 1,000 mcg/mL injection solution diphenoxylate-atropine 2.5 1 tab PO QID PRN Diarrhea #0 tabs 08/02/16 12/06/23 History mg-0.025 mg tablet (Lomotil) rizatriptan 10 mg tablet 10 mg PO DAILY PRN Migraines 11/06/18 12/06/23 History alprazolam 0.25 mg tablet 0.25 mg PO HS PRN Anxiety 06/28/19 12/06/23 History kznkdhvwkb-tznsnhorabxmg-ngmprqnv 1 tab PO Q6H PRN Pain 06/28/19 12/06/23 History 50 mg-325 mg-40 mg tablet acetaminophen 500 mg tablet 500 mg PO Q4H PRN Pain 08/23/20 12/06/23 History calcitriol 0.25 mcg capsule 0.25 mcg PO 3XWK 12/05/22 12/06/23 History calcium carbonate (Oyster Shell 500 mg PO BID 12/05/22 12/06/23 History Calcium 500) duloxetine 60 mg capsule,delayed 120 mg PO DAILY 12/05/22 12/06/23 History release mirtazapine 45 mg tablet 45 mg PO HS 12/05/22 12/06/23 History omeprazole 20 mg capsule,delayed 20 mg PO QAM 12/05/22 12/06/23 History release ondansetron 4 mg disintegrating 4 mg PO Q8H PRN NAUSEA/VOMITING 12/05/22 12/06/23 History tablet promethazine 25 mg tablet 25 mg PO Q6H PRN NAUSEA/VOMITING 12/05/22 12/06/23 History sumatriptan succinate 50 mg tablet 50 mg PO DIRECTED PRN ATTACKS 12/05/22 12/06/23 History PER [facility]G tramadol 50 mg tablet 50 mg PO Q8H PRN Pain 12/05/22 12/06/23 History buspirone 5 mg tablet 5 mg PO BID 12/06/23 12/06/23 History olanzapine 5 mg disintegrating 5 mg translingual DAILY 12/06/23 12/06/23 History tablet pregabalin 25 mg capsule 25 mg PO BID 12/06/23 12/06/23 History Patient History Medical History Weight loss, unintentional Poor appetite at times Nausea at times Kidney stones Zinc poisoning Surgical History History of lithotripsy History of esophagogastroduodenoscopy (EGD) History of colonoscopy History of cystoscopy with stent placement 08/2020 Hx of cardiac cath jul 01 2019. no stents Family History Mother Coronary heart disease Other No family history of adverse response to anesthesia Social History Smoking Status: Current every day smoker Tobacco Type: Cigarettes packs per day: 1; Cigarettes Per Day: 8-10/day; Second Hand Exposure: No; Do You Dip or Chew Tobacco: No; Hx Alcohol Use: Yes Alcohol type: hard liquor Hx Substance Use: Yes Last Used Substance: Days (ago) Last Used Substance Other:: 12/04/2023 Preferred Language: Turkmen Communication Ability: Effective Visual Impairment: No Limitations Hearing Ability: Normal Staff Engineer Required: No Beliefs That Will Affect Care: None marital status: Current Living Situation: Spouse current occupational status: employed and disabled 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[employer], 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 Other Information That Helps Us Care for You: No Feels Safe at Home: Yes Safety Concerns: Feels Safe At This Time Assistive Devices: Cane, Glasses and Walker Results & Data Vital Signs (Past 12 Hours) Vital Signs Temp Pulse Pulse Resp BP BP Pulse Ox 12/07/23 13:08 78 20 95 12/07/23 12:27 36.3 C L 12/07/23 12:06 79 24 85 L 12/07/23 11:06 82 18 86 L 12/07/23 11:05 86/59 L 12/07/23 11:00 74/42 L 12/07/23 10:54 81 31 H 92 12/07/23 10:00 78 33 H 79/48 L 91 12/07/23 09:00 96/46 L 12/07/23 09:00 78 27 H 92 12/07/23 08:12 85 29 H 12/07/23 08:02 81/50 L 12/07/23 07:54 80 20 97 12/07/23 07:51 82 25 H 98 12/07/23 07:50 12/07/23 07:44 36.4 C L 12/07/23 07:09 89 25 H 94 12/07/23 07:01 92/56 L 12/07/23 06:54 87 26 H 95 12/07/23 06:09 80 28 H 97 12/07/23 06:00 105/55 L 12/07/23 05:00 96 H 33 H 85 L 12/07/23 05:00 90/56 L 12/07/23 04:49 99 H 18 99 12/07/23 04:27 90/57 L 12/07/23 04:00 92 H 26 H 97 12/07/23 04:00 87/56 L 12/07/23 03:25 36.7 C 12/07/23 03:09 100 H 27 H 97 12/07/23 03:01 86/65 L O2 Del Method O2 Flow Rate FiO2 12/07/23 13:08 High Flow Nasal Cannula 30 70 12/07/23 12:27 12/07/23 12:06 12/07/23 11:06 12/07/23 11:05 12/07/23 11:00 12/07/23 10:54 12/07/23 10:00 12/07/23 09:00 12/07/23 09:00 12/07/23 08:12 12/07/23 08:02 12/07/23 07:54 High Flow Nasal Cannula 30 100 12/07/23 07:51 12/07/23 07:50 High Flow Nasal Cannula 30 80 12/07/23 07:44 12/07/23 07:09 12/07/23 07:01 12/07/23 06:54 12/07/23 06:09 12/07/23 06:00 12/07/23 05:00 12/07/23 05:00 12/07/23 04:49 High Flow Nasal Cannula 30 100 12/07/23 04:27 12/07/23 04:00 12/07/23 04:00 12/07/23 03:25 12/07/23 03:09 12/07/23 03:01 Diagnostic Findings extensive imaging reviewed
--- NOTE | 2023-12-07 15:04 | Hospitalist Progress Note ---
Date of Service December 07, 2023 Assessment & Plan (1) Protein calorie malnutrition: (2) History of nephrectomy: (3) Pneumonia: (4) Septic shock: (5) Acidosis: (6) Leukocytosis: (7) Acute hypoxemic respiratory failure: Plan Patient is a 58 year old female with PMHx significant for chronic malabsorption syndrome post bypass, severe protein calorie malnutrition on TPN, iron deficiency anemia, copper deficiency, h/o right nephrectomy in 2022, bipolar disorder, anxiety, depression, tobacco use, migraine headache, nonspecific white matter changes, myelopathy who presented to the ER with multiple medical complaints including SOB, dry mouth and speech changes. Denies known fever/chills, N/V, cough, CP Septic Shock Pneumonia Complicated UTI Upon arrival to ER patient noted to be hypotensive and hypoxic in the 70's. In ER afebrile, P: 94, R: 30, BP: 87/56, 78% on RA CTA Chest: No pulmonary embolus. Groundglass opacities compatible with pneumonia and/or aspiration. CT Head, CTA Head & neck: unremarkable WBC: 36.7. Lactate: 1.6, procalcitonin: 4.5 Was on 10L nonrebreather with O2 sat low 90's UA was suggestive of infection, urine culture currently growing gram negative bacilli Blood Cx x2 sets NGTD Fungal Cx pending Drug screen negative Suspect sepsis secondary to pneumonia, UTI. In ER given meropenem, vancomycin, 2 L NSS Was admitted to the ICU, currently on Cefepime and Caspofungin as well as hydrocortisone to help BP Continue to monitor Acute kidney injury Metabolic acidosis History of nephrectomy Cr: 2.2 on admission ABG pH of 7.21, HCO3 of 8, pCO2 of 19. AG of 9 at that time. Recent ROBINSON end of 10/2023 with Cr: 1.6 on 12/03 and 1.7 on 11/21. Prior baseline Cr: 1.0-1.2 IVF in ER. Did have CTA with contrast in ER Monitor renal function Nephrology consulted, appreciate recs -on bicarb drip Protein calorie malnutrition Aspiration S/P bypass BMI: 14 On TPN 4 days a week Nutrition consult, speech consult Currently NPO due to aspiration Depression with anxiety: History Bipolar disorder On home buspirone, duloxetine, olanzapine H/O migraine Denies current SMALLWOOD Tobacco use Smokes 1/2ppd Smoking cessation encouraged DVT Prophylaxis: Heparin Admission and Anticipated Discharge Date Admission Date: December 06, 2023 Subjective pt was seen while in the ICU. States she is angry she is not being allowed to eat. Denied acute concerns otherwise Review of Systems Review of Systems: All systems reviewed & are unremarkable except as noted in Subjective Physical Exam Physical Exam: General: Alert, oriented. No acute distress, thin, frail Psych: Appropriate mood and affect HEENT: NC/AT CV: RRR, Normal s1, s2. No murmurs appreciated Resp: no increased effort of breathing Abdomen: Soft Extremities: No edema in lower extremities bilaterally. Results & Data Results & Data Vital Signs (Past 12 Hours) Vital Signs Temp Pulse Pulse Resp BP BP Pulse Ox 12/07/23 14:00 72 27 H 94/51 L 93 12/07/23 13:21 74 26 H 92 12/07/23 13:08 78 20 95 12/07/23 13:00 90/48 L 12/07/23 12:57 76 31 H 96 12/07/23 12:27 36.3 C L 12/07/23 12:06 79 24 85 L 12/07/23 11:06 82 18 86 L 12/07/23 11:05 86/59 L 12/07/23 11:00 74/42 L 12/07/23 10:54 81 31 H 92 12/07/23 10:00 78 33 H 79/48 L 91 12/07/23 09:00 96/46 L 12/07/23 09:00 78 27 H 92 12/07/23 08:12 85 29 H 12/07/23 08:02 81/50 L 12/07/23 07:54 80 20 97 12/07/23 07:51 82 25 H 98 12/07/23 07:50 12/07/23 07:44 36.4 C L 12/07/23 07:09 89 25 H 94 12/07/23 07:01 92/56 L 12/07/23 06:54 87 26 H 95 12/07/23 06:09 80 28 H 97 12/07/23 06:00 105/55 L 12/07/23 05:00 96 H 33 H 85 L 12/07/23 05:00 90/56 L 12/07/23 04:49 99 H 18 99 12/07/23 04:27 90/57 L 12/07/23 04:00 92 H 26 H 97 12/07/23 04:00 87/56 L 12/07/23 03:25 36.7 C 12/07/23 03:09 100 H 27 H 97 12/07/23 03:01 86/65 L O2 Del Method O2 Flow Rate FiO2 12/07/23 14:00 12/07/23 13:21 12/07/23 13:08 High Flow Nasal Cannula 30 70 12/07/23 13:00 12/07/23 12:57 12/07/23 12:27 12/07/23 12:06 12/07/23 11:06 12/07/23 11:05 12/07/23 11:00 12/07/23 10:54 12/07/23 10:00 12/07/23 09:00 12/07/23 09:00 12/07/23 08:12 12/07/23 08:02 12/07/23 07:54 High Flow Nasal Cannula 30 100 12/07/23 07:51 12/07/23 07:50 High Flow Nasal Cannula 30 80 12/07/23 07:44 12/07/23 07:09 12/07/23 07:01 12/07/23 06:54 12/07/23 06:09 12/07/23 06:00 12/07/23 05:00 12/07/23 05:00 12/07/23 04:49 High Flow Nasal Cannula 30 100 12/07/23 04:27 12/07/23 04:00 12/07/23 04:00 12/07/23 03:25 12/07/23 03:09 12/07/23 03:01
[2023-12-07 15:19] LABS: Calcium 7.4 mg/dl (8.6-10.3); Creatinine Clr Calc Pharmacy 23.5 ml/min; Est GFR (African American) 44.9 ml/min; Est GFR (Non-African American) 38.7 ml/min; Potassium 3.1 mmol/L (3.5-5.1)
[2023-12-07] MEDS ORDERED: PHARMACY GLYCEMIC MGMT CONSULT PRN (16:37)
[2023-12-07] MEDS: INSULIN ASPART PER UNIT CHARGE SC SCH (17:00)
--- NOTE | 2023-12-07 17:41 | Electrocardiogram Report ---
Test Reason : Blood Pressure : / mmHG Vent. Rate : 087 BPM Atrial Rate : 087 BPM P-R Int : 144 ms QRS Dur : 088 ms QT Int : 382 ms P-R-T Axes : 041 -41 062 degrees QTc Int : 459 ms Normal sinus rhythm Left axis deviation Low voltage QRS Abnormal ECG When compared with ECG of 06-DEC-2023 13:36, (unconfirmed) Nonspecific T wave abnormality no longer evident in Anterior leads Confirmed by Vic Cuba ([id number]) on 12/07/2023 5:40:56 PM Referred By: REFERRED SELF Confirmed By:Deven Cuba
--- NOTE | 2023-12-07 17:52 | Electrocardiogram Report ---
Test Reason : Blood Pressure : / mmHG Vent. Rate : 089 BPM Atrial Rate : 089 BPM P-R Int : 136 ms QRS Dur : 084 ms QT Int : 350 ms P-R-T Axes : 057 -45 061 degrees QTc Int : 425 ms Normal sinus rhythm Possible Left atrial enlargement Left axis deviation Poor R wave progression, consider anterior NH vs. lead placement vs. LVH Abnormal ECG When compared with ECG of 05-DEC-2022 12:54, QRS axis Shifted left Confirmed by Vic Cuba ([id number]) on 12/07/2023 5:52:43 PM Referred By: REFERRED SELF Confirmed By:Deven Cuba
--- OUTSIDE RECORDS SUMMARY | 2023-12-07 18:00 | External Medical Summary ---
Author Name Unknown Address Unknown Organization [id number]:[facility] [id number] [place] [address] Laboratory Report Ordering Provider Test Date Status TONY RAMIREZ 12/04/2023 14:56:58 Final Observation Date Value Abnormality Reference (Units ) Status BUN 12/04/2023 14:56:58 41 Above high normal 6-20 (mg/dL) Final Creatinine 12/04/2023 14:56:58 1.6 Above high normal 0.5-1.0 (mg/dL) Final Glomerular filtration rate/1.73 sq M.predicted [Volume Rate/Area] in Serum, Plasma or Blood by Creatinine-based formula (CKD-EPI) 12/04/2023 14:56:58 36 Below low normal >=60 (mL/min) Final eGFR is calculated based on the CKD-EPI 2020 equation Sodium 12/04/2023 14:56:58 141 135-146 (m mol/L) Final Potassium 12/04/2023 14:56:58 3.5 3.5-5.1 (m mol/L) Final Cl 12/04/2023 14:56:58 117 Above high normal 98 -107 (mmol/L) Final CO2 12/04/2023 14:56:58 11 Below low normal 22- 32 (mmol/L) Final Anion gap 12/04/2023 14:56:58 13 7-15 (mmol /L) Final Glucose 12/04/2023 14:56:58 87 70-120 (mg /dL) Final Albumin 12/04/2023 14:56:58 3.4 Below low normal 3.8 -5.0 (g/dL) Final AST (Aspartate aminotransferase) 12/04/2023 14:56:58 17 10-35 (U/L) Fin al Alk Phos 12/04/2023 14:56:58 202 Above high normal 35 -130 (U/L) Final Bilirubin, Total 12/04/2023 14:56:58 <0.2 <=1 .2 (mg/dL) Final Calcium 12/04/2023 14:56:58 8.3 Below low normal 8.4 -10.2 (mg/dL) Final Protein 12/04/2023 14:56:58 5.9 Below low normal 6.0 -8.3 (g/dL) Final ALT (Alanine aminotransferase) 12/04/2023 14:56:58 12 10-35 (U/L) Matthew belle Performing Location [facility] [place] [address]
--- OUTSIDE RECORDS SUMMARY | 2023-12-07 18:00 | External Medical Summary | Summary of Care ---
Author Name Unknown Organization [facility] Address [address] [place] [address] Phone [phone] Care Team Providers Care Supervisor Sound Technician Name Role Phone Evelyn Andrews MD Primary Care Prov ider Encounter Details Date Type Department Care Team (Late st Contact Info) Description 12/05/2023 10:20 AM EDT Telemedicine Nutrition & Weight Management, [place] [address] [place] [address] Vic Wilkerson, [address], [place] [id number] Severe protein-energy malnutrition (HCC)*; S/P gastric bypass; Copper deficiency; On total parenteral nutrition (TPN); Cachexia (HCC) Allergies Active Allergy Reactions Criticality Noted Date Comments Amoxicillin Edema airway High 01/22/2003 Oxybutynin 03/25/2023 Mouth ulcers Sulfa Antibiotics Edema airway High 08/15/2006 documented as of this encounter (statuses as of 12/05/2023) Medications Medication Sig Dispensed Refills Start Date End Date Status CYANOCOBALAMIN 1000 MCG/ML IJ SOLN one injection monthly Active CALCITRIOL 0.25 MCG PO CAPS 1 CAPSULE BY MOUTH MONDAYS//FRIDAYS 5 04/10/2014 Active [facility] ACETAMINOPHEN EX ST 500 MG Tablet TAKE 1 CAPSULE BY MOUTH EVERY 4 HOURS 07/03/2019 Active Oyster Shell Calcium 500 MG Oral Tablet Take 2 Tabs by mouth daily. 60 Tab 5 04/07/2020 Active Dicyclomine HCl 20 MG Oral Tablet (Bentyl)Indications:N ausea and vomiting,Epigastric pain TAKE 1 TABLET BY MOUTH IN THE AM, AT NOON, IN THE PM AND AT BEDTIME NEEDED FOR ABDOMINAL PAIN Strength: 20 mg 480 Tablet 1 09/28/2022 Active Zinc Sulfate 220 (50 Zn) MG Oral Capsule Take 1 Capsule by mouth in the morning. 30 Capsule 12/15/2022 Active DULoxetine HCl 60 MG Oral Capsule Delayed Release Particles (Cymbalta) Take 2 Capsules by mouth in the morning. 180 Capsule 2 02/21/2023 Active SUMAtriptan Succinate 50 MG Oral Tablet (Imitrex)Indications: Migraine variant MAX OF 2 TABS PER ATTACK AND NO MORE THAN 3 X WEEKLY 10 Tablet 5 03/16/2023 Active ALPRAZolam 0.25 MG Oral Tablet (xaNAX)Indications:An xiety Take 1 Tablet by mouth at bedtime as needed for Sleep. 30 Tablet 3 06/14/2023 Active guaiFENesin-Codeine 100-10 MG/5ML Oral Syrup (Robitussin AC)Indications:COVID- 19 Take 5 mL by mouth every 4 hours as needed for Cough. 120 mL 06/28/2023 Active Omeprazole 20 MG Oral Capsule Delayed Release (PriLOSEC) TAKE 1 CAPSULE BY MOUTH EVERY DAY IN THE MORNING 90 Capsule 4 07/26/2023 Active Promethazine HCl 25 MG Oral Tablet (Phenergan)Indication s:Nausea Take 1 Tablet by mouth every 8 hours as needed for Nausea. 30 Tablet 3 08/15/2023 Active Rizatriptan Benzoate 10 MG Oral Tablet (Maxalt)Indications:M igraine variant TAKE 1 TAB BY MOUTH DAILY NEEDED FOR MIGRAINE. 10 Tablet 5 09/18/2023 Active Elavongxby-GYZG-Evjuf ine 50-325-40 MG Oral Tablet (Fioricet)Indications :Migraine variant TAKE ONE TABLET EVERY 6 HOURS NEEDED FOR PAIN 90 Tablet 1 09/19/2023 Active Pregabalin 25 MG Oral Capsule (Lyrica)Indications:C opper deficiency myeloneuropathy (HCC),Hereditary and idiopathic peripheral neuropathy Take 1 Capsule by mouth in the morning and 1 Capsule before bedtime. 60 Capsule 5 09/19/2023 Active Lidocaine 4 % External Patch (Aspercreme)Indicatio ns:Myelopathy (HCC) Place 1 Patch over 12 hours topically on the skin daily. 90 Patch 3 10/16/2023 Active Nystatin 164640 UNIT/GM External Cream APPLY TO AFFECTED AREA TWICE A DAY 30 g 2 11/02/2023 Active Ondansetron 4 MG Oral Tablet Disintegrating (Zofran)Indications:I ntractable vomiting with nausea PLACE 1 TABLET ON TONGUE EVERY 8 HOURS NEEDED FOR NAUSEA. 90 Tablet 1 11/02/2023 Active Mirtazapine 45 MG Oral Tablet (Remeron)Indications: Recurrent major depressive disorder, in partial remission (HCC) Take 1 Tablet by mouth at bedtime. 30 Tablet 3 11/03/2023 Active QUEtiapine Fumarate 50 MG Oral Tablet (SEROquel) Take 1 Tablet by mouth at bedtime. Active OLANZapine 5 MG Oral Tablet Disintegrating (zyPREXA zyDIS) Place 1 Tablet on tongue in the morning. 30 Tablet 5 11/13/2023 Active Diphenoxylate-Atropin e 2.5-0.025 MG Oral Tablet (Lomotil)Indications: Migraine variant TAKE ONE TABLET BY MOUTH 4 TIMES DAILY NEEDED FOR DAIRRHEA 60 Tablet 11/17/2023 Active traMADol HCl 50 MG Oral Tablet (Ultram)Indications:O ther idiopathic scoliosis, thoracic region,Chronic midline thoracic back pain Take 1 Tablet by mouth daily as needed for Pain, Severe. 30 Tablet 11/17/2023 Active Additional Information Patient not taking.Reported on 12/04/2023 busPIRone HCl 5 MG Oral Tablet (Buspar)Indications:B ipolar disorder, current episode depressed, severe, unspecified whether psychotic features (HCC) Take 1 Tablet by mouth in the morning and 1 Tablet at noon and 1 Tablet before bedtime. 90 Tablet 5 11/22/2023 Active Solifenacin Succinate 5 MG Oral Tablet (VESIcare) Take 1 Tablet by mouth in the morning. 90 Tablet 3 12/04/2023 Active documented as of this encounter (statuses as of 12/05/2023) Active Problems Problem Noted Date Diagnosed Date Acute pain of right shoulder 10/05/2023 Mixed incontinence 10/02/2023 Retention of urine 10/02/2023 Hypoxia 10/01/2023 Multifocal pneumonia 10/01/2023 Acute hypoxic respiratory failure 10/01/2023 Acute urinary retention 09/30/2023 ROBINSON (acute kidney injury) 09/29/2023 Adjustment disorder 09/22/2023 Tobacco abuse 09/20/2023 Fall at home 09/20/2023 Generalized weakness 09/20/2023 MDD (major depressive disord er), recurrent severe, without psychosis 05/22/2023 Bipolar disorder 03/25/2023 Incontinence of feces with fecal urgency 023 MDD (major depressive disord er), recurrent episode, moderate 03/02/2023 On total parenteral nutrition (TPN) 12/21/2022 Failure to thrive in adult 12/08/2022 Gastrostomy malfunction 07/08/2022 Encounter for adjustment and management of vascular access device 01/21/2021 Cachexia 12/23/2020 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 08/17/2021 10/24/2023 Nephrolithiasis 02/16/2021 01/27/2022 Overview: Cysto 11/24/21 Recurrent major depressive d isorder, in partial remission 07/09/2019 07/13/2023 Overview: Depression is included in the Bipolar condition on pl PFO with atrial septal aneurysm 05/16/2019 06/07/2022 Iron deficiency anemia 04/24/201911/29 Overview: More specific on PL Protein-calorie malnutrition 09/28/2018 09/23/2021 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/2021 [employer] 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 02/06/2017 05/02/2018 [employer] 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 02/06/2017 07/09/2019 Iron deficiency anemia 06/28/201109/20 Overview: ICD-10 update of inactive term Iron deficiency anemia 06/28/201109/20 Overview: ICD-10 update of inactive term Iron deficiency anemia pat morrisony to inadequate dietary iron intake 09/26/2008 3 Secondary hyperparathyroidism, non-renal 03/27/2007 10/24/2023 Infected postoperative seroma 06/02/2003 09/20/2012 PANNICULITIS, [facility] SITE 05/14/200311/2022 documented as of this encounter (statuses as of 12/05/2023) Immunizations Name Administration Dates Next Due COVID-19 mRNA, LNP-s, No Pre serve, 2-Dose Series (Possibility Space) 02/16/2021,11/25/2020,11/01/2020 COVID-19, MRNA-LNP, 23-24, P F, 30 MCG/0.3 mL, 12 YRS AND ABOVE, IM (PFIZER-Comirnaty) 04/10/2023 Covid-19, Mrna, Lnp-s, Pf, B ivalent, 30 Mcg, IM, 12 yrs and above (Pfizer) 04/12/2022 Pneumococcal Conjugate Vacci ne, 20-valent ([id number]) 12/10/2021 Pneumococcal Polysaccharide PPV23 (Pneumovax) 07/21/2009 Seasonal Influenza, PF, 6 M & above, IM , (FluLaval or Fluzone) 03/01/2023,03/08/2022,03/18/2021,05/16,05/02/2018 Seasonal Influenza, Split, I IV3, With Preserve, Inj 03/23/2012,05/23/2007 TD - Tetanus/Diptheria (ADULT) 04/06/2002 Zoster Vaccine Recombinant (Shingrix) 04/27/2020 ,01/24/2020 documented as of this encounter Social History Tobacco Use Types Packs/Day Years Used Date Smoking Tobacco: Every Day Cigarettes 0.5 30 Smokeless Tobacco: Never Alcohol Use Standard Drinks/Week Comments Not Currently 0 (1 standard drink = 0.6 oz pur e alcohol) PHQ-2 Answer Date Recorded PHQ Adult Total Score 15 05/22/2023 Hunger Vital Sign Answer Date Recorded Within the past 12 months, y ou worried that your food would run out before you got the money to buy more. Never true 05/22/20 23 Within the past 12 months, t he food you bought just didn't last and you didn't have money to get more. Never true 05/22/2023 Sex and Gender Information Value Date Recorded Sex Assigned at Female 05/22/2023 6:18 PM EST Gender Identity Female 05/22/2023 6:18 PM EST Sexual Orientation Straight 05/22/2023 6: 18 PM EST Job Start Date Occupation Industry Not on file Not on file Not on file documented as of this encounter Functional Status Functional Status Response Date of Assess ment Are you deaf or do you have serious difficulty hearing? No 11/03/2023 Are you blind or do you have serious difficulty seeing, even when wearing glasses? No 11/03/2023 Do you have serious difficul ty walking or climbing stairs? (5 years old or older) Yes-uses cane and has rollator on order 11/03/2023 Do you have difficulty dress ing or bathing? (5 years old or older) No 11/03/2023 Because of a physical, menta l, or emotional condition, do you have difficulty doing errands alone such as visiting a doctor s office or shopping? (15 years old or older) No 11/03/2023 Cognitive Status Response Date of Assessm ent Because of a physical, menta l, or emotional condition, do you have serious difficulty concentrating, remembering, or making decisions? (5 years old or older) No 11/03/2023 documented as of this encounter Progress Notes * Vic Wilkerson, DO - 12/05/2023 10:15 AM EDT Evelyn Mobley MD Patient location: HOME. I was in a hospital or clinic location. After connecting through [employer],patient was verified with two unique identifiers. Patient (or authorized legal claims service representative) was then informed that this was a Telemedicine visit and being conducted confidentially over secure lines. Methods to assure confidentiality were taken. Patient acknowledged consent and understanding of pr ivacy and security of the Telemedicine visit. The patient agreed to participate. . Your patient was seen today in the Nutrition Clinic. Please take note of the following information. Nutrition Diagnosis: SEVERE Protein/Calorie Malnutrition Weight 82 pounds LMP 04/05/2007 Wt Readings from Last 6 Encounters: 12/04/23 36.9 kg (81 lb 4.8 oz) 11/22/23 38.6 kg (85 lb) 11/07/23 40.5 kg (89 lb 3.2 oz) 10/24/23 37.6 kg (83 lb) 10/23/23 37.7 kg (83 lb 1.6 oz) 10/17/23 38.9 kg (85 lb 11.2 oz) Current Outpatient Medications Medication Sig Dispense Refill CYANOCOBALAMIN 1000 MCG/ML IJ SOLN one injection monthly CALCITRIOL 0.25 MCG PO CAPS 1 CAPSULE BY MOUTH MONDAYS/WEDNESDAYS/FRIDAYS 5 [facility] ACETAMINOPHEN EX ST 500 MG Tablet TAKE 1 CAPSULE BY MOUTH EVERY 4 HOURS Oyster Shell Calcium 500 MG Oral Tablet Take 2 Tabs by mouth daily. 60 Tab 5 Dicyclomine HCl 20 MG Oral Tablet (Bentyl) TAKE 1 TABLET BY MOUTH IN THE AM, AT NOON, IN THE PM ANDAT BEDTIME NEEDED FOR ABDOMINAL PAIN Strength: 20 mg 480 Tablet 1 Zinc Sulfate 220 (50 Zn) MG Oral Capsule Take 1 Capsule by mouth in the morning. 30 Capsule 0 DULoxetine HCl 60 MG Oral Capsule Delayed Release Particles (Cymbalta) Take 2 Capsules by mouth in the morning. 180 Capsule 2 SUMAtriptan Succinate 50 MG Oral Tablet (Imitrex) MAX OF 2 TABS PER ATTACK AND NO MORE THAN 3 X WEEKLY 10 Tablet 5 ALPRAZolam 0.25 MG Oral Tablet (xaNAX) Take 1 Tablet by mouth at bedtime as needed for Sleep. 30 Tablet 3 guaiFENesin-Codeine 100-10 MG/5ML Oral Syrup (Robitussin AC) Take 5 mL by mouth every 4 hours as needed for Cough. 120 mL 0 Omeprazole 20 MG Oral Capsule Delayed Release (PriLOSEC) TAKE 1 CAPSULE BY MOUTH EVERY DAY IN THE MORNING 90 Capsule 4 Promethazine HCl 25 MG Oral Tablet (Phenergan) Take 1 Tablet by mouth every 8 hours as needed for Nausea. 30 Tablet 3 Rizatriptan Benzoate 10 MG Oral Tablet (Maxalt) TAKE 1 TAB BY MOUTH DAILY NEEDED FOR MIGRAINE. 10 Tablet 5 Fjhxlwmppp-RRAI-Zxaonvln 50-325-40 MG Oral Tablet (Fioricet) TAKE ONE TABLET EVERY 6 HOURS NEEDED FOR PAIN 90 Tablet 1 Pregabalin 25 MG Oral Capsule (Lyrica) Take 1 Capsule by mouth in the morning and 1 Capsule before bedtime. 60 Capsule 5 Lidocaine 4 % External Patch (Aspercreme) Place 1 Patch over 12 hours topically on the skin daily. 90 Patch 3 Nystatin 798594 UNIT/GM External Cream APPLY TO AFFECTED AREA TWICE A DAY 30 g 2 Ondansetron 4 MG Oral Tablet Disintegrating (Zofran) PLACE 1 TABLET ON TONGUE EVERY 8 HOURS NEEDED FOR NAUSEA. 90 Tablet 1 Mirtazapine 45 MG Oral Tablet (Remeron) Take 1 Tablet by mouth at bedtime. 30 Tablet 3 QUEtiapine Fumarate 50 MG Oral Tablet (SEROquel) Take 1 Tablet by mouth at bedtime. OLANZapine 5 MG Oral Tablet Disintegrating (zyPREXA zyDIS) Place 1 Tablet on tongue in the morning.30 Tablet 5 Diphenoxylate-Atropine 2.5-0.025 MG Oral Tablet (Lomotil) TAKE ONE TABLET BY MOUTH 4 TIMES DAILY ASNEEDED FOR DAIRRHEA 60 Tablet 0 traMADol HCl 50 MG Oral Tablet (Ultram) Take 1 Tablet by mouth daily as needed for Pain, Severe. (Patient not taking: Reported on 12/04/2023) 30 Tablet 0 busPIRone HCl 5 MG Oral Tablet (Buspar) Take 1 Tablet by mouth in the morning and 1 Tablet at noon and 1 Tablet before bedtime. 90 Tablet 5 Solifenacin Succinate 5 MG Oral Tablet (VESIcare) Take 1 Tablet by mouth in the morning. 90 Tablet 3 No current facility-administered medications for this visit. Diet: regular Nutrition Support: NONE Venous Access: PORT Enteral Access: NONE Review of Systems: -- Tolerating some PO LMP 04/05/2007 Physical Exam Severe Protein Calorie Malnutrition: -States that she is infusing Sun, Mon, Mon, and -- Weight back down to 81 pounds yesterday at urology -Creat slightly better, 1.6 (1.7) -She needs to reschedule with Nephrology. - Will increase her acetate -Would like to get a reading on her pump with regard to compliance Diarrhea: -- Stable (E61.0) Copper deficiency - Infusion PRN (D50.9) Iron deficiency anemia, unspecified iron deficiency anemia type - Follows by hematology Depression: "Stable". Continue Remeron Will f/u in 2 weeks --CDS Vic Wilkerson DO, FACN, FACP Director, [facility] Ironworker Helper, Department of Gastroenterology/Nutrition documented in this encounter Plan of Treatment Upcoming Encounters Date Type Department Care Team (Late st Contact Info) Description 12/11/2023 2:30 PM EDT Immunization/Injection Hematology/Oncology Treatment, [address] [phone] Nurse, [address] [place] [address] 12/13/2023 10:00 AM EDT Telemedicine Family Medicine [address] [phone] Evelyn Andrews MD [address] [place] [address] [place] [address] 12/18/2023 9:00 AM EDT Nurse Only Urology, Kee Torres [place] [address] [place] [address] Nurse Brian Urologmaral Fitzpatrick [address] [place] [address] 12/18/2023 2:30 PM EDT Immunization/Injection Hematology/Oncology Treatment, [place] [address] [place] [phone] Nurse, Med 4 [address] [facility] [place] [address] 01/01/2024 6:30 PM EDT Telemedicine Psychiatry Marlena Coppola [place] [address] [place] [phone] Alexis Serna MD [address] [place] [address] 04/29/2024 8:40 AM EST Office Visit Neurology [facility] [address] [facility] [place] [address] Aris Mohr MD [address] [facility] [place] [address] 09/16/2024 11:20 AM EDT Office Visit Neurology [facility] [address] [facility] [place] [address] Jodee Austin MD [address] [place] [address] Health Maintenance Due Date Last Done Comments HPV/Co-Test 1993 Cologuard 2008 Fecal Occult Blood Test 2008 Sigmoidoscopy 2008 Mammogram 08/18/2011 08/18/2010, 08/11/2009 Cervical Cancer Screening 09/27/2014 Pap Smear 09/27/2014 09/28/2011, 11/2010, 07/07/2010, Additional history exists Colonoscopy 12/11/2023 12/10/2013, 11/24, 01/15/2007 Colorectal Cancer Screening 12/11/2023 Depression Monitoring 05/22/2024 05/22/2023 GFR 06/04/2024 12/04/2023, 10/25, 11/07/2023, Additional history exists Albumin/Creatinine Ratio 08/23/2024 024, 08/23/2022, 09/20/2021 CKD HGB USE SMARTSET 60149 11/21/202411/21, 11/22/2023, 11/07/2023, Additional history exists CKD PHOS USE SMARTSET 40475 12/03/202411/24, 11/22/2023, 11/07/2023, Additional history exists DTaP,Tdap,and Td Vaccines (2 - Td or Tdap) 07/29/2030 07/29/2020 (Declined), 04/06/2002 Lipid Panel Discontinued 10/24/2016, 07/21/2009 Zoster Vaccines Completed 04/27/2020, 01/24/2020 Pneumococcal Vaccine: Pediatrics (0 to 5 Years) and At-Risk Patients (6 to 64 Years) Completed 12/10/2021, 07/21/2009 Influenza Vaccine (FLU shot) Completed 03/01/2023, 03/08/2022, 03/18/2021, Additional history exists COVID-19 Vaccine Completed 04/10/2023, , 02/16/2021, Additional history exists GARDASIL-HPV IMMUNIZATION SERIES Aged Out No longer eligible based on patient's age to complete this topic Hepatitis B Aged Out No longer eligi ble based on patient's age to complete this topic MENINGOCOCCAL (MENACTRA/MENVEO) Aged Out No longer eligible based on patient's age to complete this topic documented as of this encounter Medical Devices Implanted Type Area Lining Ironer Device Identifier Shelf Expiration Date Model / Serial / Lot Stent Axios 20mm - [id number] Implanted:Qty: 1 on 01/04/2021 by Leyda Garcia MD at OR [facility] N/A: Stomach [employer] : ENDOSCOPY 11/20/2021 [id number] / / [id number] documented as of this encounter Visit Diagnoses Diagnosis Severe protein-energy malnutrition (HCC)- Primary Other severe protein-calorie malnutrition S/P gastric bypass Bariatric surgery status Copper deficiency Disorders of copper metabolism On total parenteral nutrition (TPN) Other specified conditions influencing health status Cachexia (HCC) Cachexia documented in this encounter Advance Directives Documents on File Type Date Recorded Patient [employer] Expl anation POLST 01/03/2022 [place] [facility] FOR LIFE-SUSTAINING TREATMENT * No Code (Latest Code Status on File) Date Activated Date Inactivated Comments 11/03/2023 5:42 PM 11/07/2023 3:43 PM This order r eflects the patients wishes and were consensually agreed upon. Question Answer Comments Discussion of Advance Directives occurred with: Patient * No Code Date Activated Date Inactivated Comments 09/20/2023 2:18 PM 10/10/2023 4:01 PM This order r eflects the patients wishes and were consensually agreed upon. Question Answer Comments Discussion of Advance Directives occurred with: Patient * No Code Date Activated Date Inactivated Comments 12/08/2022 11:17 AM 12/15/2022 8:22 PM This order reflects the patients wishes and were consensually agreed upon. Question Answer Comments Discussion of Advance Directives occurred with: Patient * Full Code Date Activated Date Inactivated Comments 12/08/2022 10:55 AM 12/08/2022 11:17 AM This order reflects the patients wishes and were consensually agreed upon. Question Answer Comments Discussion of Advance Direct shar occurred with: Not Discussed due to patient's condition * Full Code Date Activated Date Inactivated Comments 11/18/2022 8:06 AM 11/19/2022 3:28 PM This order r eflects the patients wishes and were consensually agreed upon. Question Answer Comments Discussion of Advance Directives occurred with: Patient Healthcare Agents on File Name Relationship Healthcare Agent Relationship Communication Ariella Acosta Other - (no specific identity) Health Care [employer] (appointed verbally by patient or by statute hierarchy) Rowdy Kraus Health Care [employer] (appointed verbally by patient or by statute hierarchy) Care Teams Supervisor Sound Technician Relationship Specialty Start Date End Date Evelyn Andrews MD [address] [place] [address] [place] [phone] PCP - General Family Medicine 05/04/18 documented as of this encounter
--- OUTSIDE RECORDS SUMMARY | 2023-12-07 18:00 | External Medical Summary ---
Author Name Unknown Address Unknown Organization [id number]:[facility] [place] [address] [place] [address] Laboratory Report Ordering Provider Test Date Status TONY RAMIREZ 12/04/2023 14:56:58 Final Observation Date Value Abnormality Reference (Units ) Status Lipase 12/04/2023 14:56:58 52 13-60 (U/L ) Final Performing Location LABORATORY [facility] - [address] [place] [address]
--- OUTSIDE RECORDS SUMMARY | 2023-12-07 18:00 | External Medical Summary ---
Author Name Unknown Address Unknown Organization [id number]:[facility]ATORY [place] [address] [place] [address] Laboratory Report Ordering Provider Test Date Status TONY RAMIREZ 12/04/2023 14:56:58 Final Observation Date Value Abnormality Reference (Units ) Status Magnesium 12/04/2023 14:56:58 2.0 1.5-2.6 (m g/dL) Final Performing Location [facility] [place] [address]
--- OUTSIDE RECORDS SUMMARY | 2023-12-07 18:00 | External Medical Summary | Summary of Care ---
Author Name Unknown Organization [facility] Address [address] [place] [address] Phone [phone] Care Team Providers Care Sales Project Engineer Name Role Phone Evelyn Andrews MD Primary Care Prov ider Reason for Visit * Reason Comments Procedure PICC line dressing c geri Encounter Details Date Type Department Care Team (Latest Contact Info) Description 12/04/2023 2:30 PM EDT Immunization/I njection Hematology/Oncology Treatment, [place] [address] [place] [address] Nurse, Med [address] [place] [address] Encounter for adjustment and management of vascular access device*; Severe protein-energy malnutrition (HCC) Allergies Active Allergy Reactions Criticality Noted Date Comments Amoxicillin Edema airway High 01/22/2003 Oxybutynin 03/25/2023 Mouth ulcers Sulfa Antibiotics Edema airway High 08/15/2006 documented as of this encounter (statuses as of 12/04/2023) Medications Medication Sig Dispensed Refills Start Date [...] FOR MIGRAINE. 10 Tablet 5 09/18/2023 Active Poetkmdehg-REZM-Qbeew ine 50-325-40 MG Oral Tablet (Fioricet)Indications :Migraine [...] daily. 90 Patch 3 10/16/2023 Active Nystatin 533737 UNIT/GM External Cream APPLY TO AFFECTED AREA [...] for Pain, Severe. 30 Tablet 11/17/2023 Active busPIRone HCl 5 MG Oral Tablet (Buspar)Indications:B ipolar disorder, current episode depressed, severe, unspecified whether psychotic features (HCC) Take 1 Tablet by mouth in the morning and 1 Tablet at noon and 1 Tablet before bedtime. 90 Tablet 5 11/22/2023 Active documented as of this encounter (statuses as of 12/04/2023) Active Problems Problem Noted Date Diagnosed Date [...] as of this encounter (statuses as of 12/04/2023) Resolved Problems Problem Noted Date Diagnosed Date Resolved Date Old NV (myocardial infarction) 03/01/2023 03/01/2023 Atherosclerosis of [place] ronary artery without angina pectoris 02/08/2022 [...] malnutrition 09/28/2018 09/23/2021 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/2021 STATUARY PAINTER 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 02/06/2017 05/02/2018 STATUARY PAINTER 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 02/06/2017 07/09/2019 Iron deficiency anemia 06/28/201109/20 Overview: ICD-10 update of inactive term Iron deficiency anemia 06/28/201109/20 Overview: ICD-10 update of inactive term Iron deficiency anemia pat paulino to inadequate dietary iron intake 09/26/2008 3 Secondary hyperparathyroidism, non-renal 03/27/2007 10/24/2023 Infected postoperative seroma 06/02/2003 09/20/2012 PANNICULITIS, [facility] SITE 05/14/200311/2022 documented as of this encounter (statuses as of 12/04/2023) Immunizations Name Administration Dates Next Due COVID-19 mRNA, LNP-s, No Pre serve, 2-Dose Series (NileGuide) 02/16/2021,11/25/2020,11/01/2020 COVID-19, MRNA-LNP, 23-24, P F, 30 MCG/0.3 mL, 12 YRS AND ABOVE, IM (Envision Blue Green-Comirnat) 04/10/2023 Covid-19, Mrna, Lnp-s, Pf, B ivalent, 30 Mcg, IM, 12 yrs and above (NileGuide) 04/12/2022 Pneumococcal Conjugate Vacci ne, 20-valent (Pralnpg59) 12/10/2021 Pneumococcal Polysaccharide PPV23 (Pneumovax) 07/21/2009 Seasonal [...] No 11/03/2023 documented as of this encounter Nursing Notes * Stacie Mclaughlin LPN - 12/04/2023 3:36 PM EDT Patient arrived Chair 9 for PICC line dressing change. Patient reported that there is some pain andredness from site. Inspection of site showed mild reddening of the skin, no discharge, or odor fromsite. Under sterile technique dressing changed. Positive blood return, flushed with ease, Laboratory orders drawn and sent to the lab. Cap changed, dated and initialed. Patient will return in 1 week.Patient discharged in stable condition. documented in this encounter Plan of Treatment Upcoming Encounters Date Type Department Care Team (Late st Contact Info) Description 12/05/2023 10:20 AM EDT Telemedicine Nutrition & Weight Management, [place] [address] [place], [place] [phone] Vic Wilkerson DO [address], [place] [phone] 12/11/2023 2:30 PM EDT Immunization/Injectio n Hematology/Oncology Treatment, [place] [address] [place] [phone] Nurse, Med [address] [place] [address] 12/13/2023 10:00 AM EDT Telemedicine Family [address] [phone] Evelyn Andrews MD [address] [place] [address] [place] [address] 12/18/2023 2:30 PM EDT Immunization/Injectio n Hematology/Oncology Treatment, [address] [phone] Nurse, Med [address] [facility] [place] [address] 01/01/2024 6:30 PM EDT Telemedicine Psychiatry [facility] [place] [address] [place] [phone] Alexis Serna MD [address] [place] [address] 04/29/2024 8:40 AM EST Office Visit Neurology [facility] [address] [place], [place] [address] Aris Mohr MD [address] [place] [address] 09/16/2024 11:20 AM EDT Office Visit Neurology [facility] [address] [place], [place] [address] Jodee Austin MD [address] [place] [address] Health Maintenance Due Date Last Done Comments HPV/Co-Test 1993 Cologuard 2008 Fecal Occult Blood Test 2008 Sigmoidoscopy 2008 Mammogram 08/18/2011 08/18/2010, 08/11/2009 Cervical Cancer Screening 09/27/2014 Pap Smear 09/27/2014 09/28/2011, 11/2010, 07/07/2010, Additional history exists Colonoscopy 12/11/2023 12/10/2013, 11/24, 01/15/2007 Colorectal Cancer Screening 12/11/2023 Depression Monitoring 05/22/2024 05/22/2023 GFR 05/24/2024 11/22/2023, 10/24, 11/06/2023, Additional history exists Albumin/Creatinine Ratio 08/23/2024 024, 08/23/2022, 09/20/2021 CKD HGB USE SMARTSET 67020 11/21/202411/21, 11/22/2023, 11/07/2023, Additional history exists CKD PHOS USE SMARTSET 37301 11/21/202410/25, 11/07/2023, 11/06/2023, Additional history exists DTaP,Tdap,and Td Vaccines (2 [...] this encounter Medical Devices Implanted Type Area Distribution Associate Device Identifier Shelf Expiration Date Model / Serial / Lot Stent Axios 20mm - [id number] Implanted:Qty: 1 on 01/04/2021 by Leyda Garcia MD at OR [facility] N/A: Stomach [employer] : ENDOSCOPY 11/20/2021 [id number] / / [id number] documented as of this encounter Visit Diagnoses Diagnosis Encounter for adjustment and management of vascular access device- Primary Severe protein-energy malnutrition (HCC) Other severe protein-calorie malnutrition documented in this encounter Administered Medications Active Administered Medications - up to 3 most recent administrations Medication Order MAR Action Action Date Dose Rate Site hEParin 100 UNIT/ML Lock Flush inj 500 Units 500 Units (5 mL), IV Lock, PRN Other, IV Flush, Starting on Mon12/04/23 at 1527, Until Mon12/05/23 at 1526, For 24 hours, Do not flush if lock, PICC, or central line not in place; IV infusing or unable to flush. Given 12/04/2023 3:29 PM EDT 500 Units Given 12/04/2023 3:28 PM EDT 500 Units sodium chloride 0.9 % flush central line 10 mL 10 mL, IV Push, PRN Other, IV Flush, Starting on Mon12/04/23 at 1527, Until Mon12/05/23 at 1526, For 24 hours, Do not flush if lock, PICC, or central line not in place; IV infusing or unable to flush. Given 12/04/2023 3:29 PM EDT 10 mL documented in this encounter Advance Directives Documents on File Type Date Recorded Patient Department Chair Expl surekha CLANCY 01/03/2022 [place] [facility] FOR LIFE-SUSTAINING TREATMENT * No Code (Latest [...] Name Relationship Healthcare Agent Relationship Communication Ariella Scottvince Other - (no specific identity) Health Care Department Chair (appointed verbally by patient or by statute hierarchy) Rowdy Mykel Sibling Health Care Department Chair (appointed verbally by patient or by statute hierarchy) Care Teams Sales Project Engineer Relationship Specialty Start Date End Date Evelyn Andrews MD [address] [place] [address] [place] [address] PCP - General Family Medicine 05/04/18 documented as of this encounter
--- OUTSIDE RECORDS SUMMARY | 2023-12-07 18:00 | External Medical Summary | Summary of Care ---
Author Name Unknown Organization [facility] Address [address] [place] [address] Phone [phone] Care Team Providers Care Steam Service Inspector Name Role Phone Evelyn Andrews MD Primary Care Prov ider Reason for Visit * Reason Comments Procedure Central line dressin g change & lab draw Encounter Details Date Type Department Care Team (Latest Contact Info) Description 06/20/2023 2:00 PM EST Immunization/ Injection Hematology/Oncology Treatment, [place] [address] [place] [address] Nurse, Med [address] [place] [address] Encounter for adjustment and management of vascular access device*; Severe protein-energy malnutrition (HCC); Myelopathy (HCC); Copper deficiency myeloneuropathy (HCC) Allergies Active Allergy Reactions Criticality Noted Date Comments Amoxicillin Edema airway High 01/22/2003 Oxybutynin 03/25/2023 Mouth ulcers Sulfa Antibiotics Edema airway High 08/15/2006 documented as of this encounter (statuses as of 11/24/2023) Medications Medication Sig Dispensed Refills Start Date End Date Status CYANOCOBALAMIN 1000 MCG/ML IJ SOLN one injection monthly Active CALCITRIOL 0.25 MCG PO CAPS 1 CAPSULE BY MOUTH MONDAYS/Monday/FRIDAYS 5 04/10/20 14 Active [facility] ACETAMINOPHEN EX ST 500 MG Tablet TAKE 1 CAPSULE BY MOUTH EVERY 4 HOURS 07/03/19 Active Oyster Shell Calcium 500 MG Oral Tablet Take 2 Tabs by mouth daily. 60 Tab 5 04/07/20 Active Dicyclomine HCl 20 MG Oral Tablet (Bentyl)Indication s:Nausea and vomiting,Epigastri c pain TAKE 1 TABLET BY MOUTH IN THE AM, AT NOON, IN THE PM AND AT BEDTIME NEEDED FOR ABDOMINAL PAIN Strength: 20 mg 480 Tablet 1 09/29/19 Active Zinc Sulfate 220 (50 Zn) MG Oral Capsule Take 1 Capsule by mouth in the morning. 30 Capsule 12/16/19 23 Active DULoxetine HCl 60 MG Oral Capsule Delayed Release Particles (Cymbalta) Take 2 Capsules by mouth in the morning. 180 Capsule 2 02/22/20 Active SUMAtriptan Succinate 50 MG Oral Tablet (Imitrex)Indicatio ns:Migraine variant MAX OF 2 TABS PER ATTACK AND NO MORE THAN 3 X WEEKLY 10 Tablet 5 03/16/20 Active ALPRAZolam 0.25 MG Oral Tablet (xaNAX)Indications :Anxiety Take 1 Tablet by mouth at bedtime as needed for Sleep. 30 Tablet 3 06/14/20 23 Active Estradiol 0.1 MG/GM Vaginal Cream (Estrace) Administer 1 g into the vagina in the morning. Apply periurethrally as directed.. 42.5 g 2 05/23/20 22 024 Discontinued(Il dication List Clean Up) Omeprazole 20 MG Oral Capsule Delayed Release (PriLOSEC) TAKE 1 CAPSULE BY MOUTH EVERY DAY IN THE MORNING 90 Capsule 5 07/11/19 23 024 Discontinued Lidocaine 4 % External Patch (Aspercreme) Place 1 Patch every 12 hours topically on the skin in the morning - remove old patch first. Do not start before December 16, 2022. 30 Patch 12/17/19 23 024 Discontinued Vitamin D (Ergocalciferol) 1.25 MG (90427 UT) Oral Capsule (Drisdol)Indicatio ns:Diarrhea due to malabsorption TAKE ONE CAPSULE BY MOUTH EVERY OTHER DAY 12 Capsule 6 08/27/19 23 024 Discontinued Myrbetriq 25 MG Oral Tablet Extended Release 24 Hour (Mirabegron ER)Indications:Urg e incontinence of urine Take 1 Tablet by mouth in the morning. 90 Tablet 3 04/03/20 23 024 Discontinued(Il dication List Clean Up) Nystatin 647218 UNIT/GM External Cream Apply topically to affected area 2 times a day. 30 g 2 04/03/20 23 024 Discontinued Mirtazapine 45 MG Oral Tablet (Remeron)Indicatio ns:Recurrent major depressive disorder, in partial remission (HCC) Take 1 Tablet by mouth at bedtime. 30 Tablet 3 04/12/20 23 024 Discontinued(Re fill) Ondansetron 4 MG Oral Tablet Disintegrating (Zofran)Indication s:Intractable vomiting with nausea Place 1 Tablet on tongue every 8 hours as needed for Nausea. 90 Tablet 1 04/25/20 23 024 Discontinued Ezfnoapyjt-LWVD-Uo ffeine 50-325-40 MG Oral Tablet (Fioricet)Indicati ons:Migraine variant TAKE ONE TABLET EVERY 6 HOURS NEEDED FOR PAIN 90 Tablet 1 05/19/20 23 024 Discontinued(Re fill) OLANZapine 5 MG Oral Tablet (zyPREXA) Take 1 Tablet by mouth at bedtime. 30 Tablet 5 05/22/20 23 024 Discontinued Promethazine HCl 25 MG Oral Tablet (Phenergan)Indicat ions:Nausea Take 1 Tablet by mouth every 8 hours as needed for Nausea. 30 Tablet 3 06/01/20 23 024 Discontinued(Re fill) predniSONE 20 MG Oral Tablet (Deltasone) Take 80 mg for 2 days, 60 mg for 2 days, 40 mg for 2 days, 20 mg for 2 days then 10 mg for 2 days 25 Tablet 06/05/20 23 024 Discontinued Diphenoxylate-Atro pine 2.5-0.025 MG Oral Tablet (Lomotil)Indicatio ns:Migraine variant TAKE ONE TABLET BY MOUTH 4 TIMES DAILY NEEDED FOR DAIRRHEA 60 Tablet 06/14/20 23 024 Discontinued Rizatriptan Benzoate 10 MG Oral Tablet (Maxalt)Indication s:Migraine variant TAKE 1 TAB BY MOUTH DAILY NEEDED FOR MIGRAINE. 10 Tablet 5 06/14/20 23 024 Discontinued(Re fill) documented as of this encounter (statuses as of 11/24/2023) Active Problems Problem Noted Date Diagnosed Date MDD (major depressive disord er), recurrent severe, [...] as of this encounter (statuses as of 11/24/2023) Resolved Problems Problem Noted Date Diagnosed Date Resolved Date Old [place] (myocardial infarction) 03/01/2023 03/01/2023 Atherosclerosis of [place] co ronary artery without angina pectoris 02/08/2022 [...] malnutrition 09/28/2018 09/23/2021 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/2021 GROUNDS CREW SUPERVISOR 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 02/06/2017 05/02/2018 GROUNDS CREW SUPERVISOR 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 02/06/2017 07/09/2019 Iron deficiency anemia 06/28/201109/20 Overview: ICD-10 update of inactive term Iron deficiency anemia 06/28/201109/20 Overview: ICD-10 update of inactive term Iron deficiency anemia pat paulino to inadequate dietary iron intake 09/26/2008 3 Secondary hyperparathyroidism, non-renal 03/27/2007 10/24/2023 Infected postoperative seroma 06/02/2003 09/20/2012 PANNICULITIS, [facility] SITE 05/14/200311/2022 documented as of this encounter (statuses as of 11/24/2023) Immunizations Name Administration Dates Next Due COVID-19 mRNA, LNP-s, No Pre serve, 2-Dose Series ([employer] ???) 02/16/2021,11/25/2020,11/01/2020 COVID-19, MRNA-LNP, 23-24, P F, 30 MCG/0.3 mL, 12 YRS AND ABOVE, IM ([employer]) 04/10/2023 Covid-19, Mrna, Lnp-s, Pf, B ivalent, 30 Mcg, IM, 12 yrs and above ([employer] ???) 04/12/2022 Pneumococcal Conjugate Vacci ne, 20-valent ([id number]) 12/10/2021 Pneumococcal Polysaccharide PPV23 (Pneumovax) 07/21/2009 Seasonal [...] drink = 0.6 oz pur e alcohol) occ PHQ-2 Answer Date Recorded PHQ Adult Total Score 15 05/22/2023 Hunger Vital Sign Answer Date Recorded Within the past 12 months, y ou worried that your food would run out before you got the money to buy more. Never true 05/22/20 Within the past 12 months, t he [...] on file documented as of this encounter Last Filed Vital Signs Vital Sign Reading Time Taken Comments Blood Pressure - - Pulse - - Temperature - - Respiratory Rate - - Oxygen Saturation - - Inhaled Oxygen Concentration - - Weight 34.5 kg (76 lb) 06/20/2023 3:02 PM EST Height - - Body Mass Index 15.35 12/21/2022 11:21 AM EDT documented in this encounter Functional Status Functional Status Response Date of Assess ment Are you deaf or do you have serious difficulty h earing? No 12/08/2022 Are you blind or do you have serious difficulty seeing, even when wearing glasses? No 12/08/2022 Do you have serious difficul ty walking or climbing stairs? (5 years old or older) Yes 12/08/2022 Do you have difficulty dress ing or bathing? (5 years old or older) Yes 12/08/2022 Because of a physical, menta l, or emotional condition, do you have difficulty doing errands alone such as visiting a doctor s office or shopping? (15 years old or older) No 12/09/19 Cognitive Status Response Date of Assessm ent Because of a physical, menta l, or emotional condition, do you have serious difficulty concentrating, remembering, or making decisions? (5 years old or older) No 12/08/2022 documented as of this encounter Nursing Notes * Johanna Figueredo, RN - 06/20/2023 3:02 PM EST Chair 11 Pt here for central line dressing change & lab draw. Dressing & caps changed per protocol. Site without redness, edema, drainage. Positive blood return x 2. Labs drawn. Pt noam well. Discharged in stable condition. documented in this encounter Plan of Treatment Upcoming Encounters Date Type Department Care Team (Late st Contact Info) Description 11/27/2023 10:45 AM EDT Nurse Only Hematology/Oncology Treatment, [place] [address] [place] [phone] Nurse, Med 4 [address] [place] [address] 11/29/2023 5:00 PM EDT Telemedicine Psychiatry [facility] [address] [place] [phone] Alexis Serna MD [address] [place] [address] 12/04/2023 10:00 AM EDT Nurse Only Hematology/Oncology Treatment, [address] [phone] Nurse, Med 4 [address] [place] [address] 12/04/2023 3:45 PM EDT Office Visit [facility], [facility] [place] [address] Christopher Almonte MD [address] [facility] [place] [address] 12/05/2023 10:20 AM EDT Telemedicine Nutrition & Weight Management, [place] [address] [place] [address] Vic Wilkerson DO [address] [place] [address] 12/13/2023 10:00 AM EDT Telemedicine Family Medicine [address] [place] [address] Evelyn Andrews MD [address] [place] [address] [place] [address] 04/29/2024 8:40 AM EST Office Visit Neurology [facility] [address] [facility] [place] [address] Aris Mohr MD [address] [place] [address] 09/16/2024 11:20 AM EDT Office Visit Neurology [facility] [place] [address] [place] [address] Jodee Austin MD [address] [place] [address] Health Maintenance Due Date Last Done Comments HPV/Co-Test 1993 Cologuard 2008 Fecal Occult Blood Test 2008 Sigmoidoscopy 2008 Mammogram 08/18/2011 08/18/2010, 08/11/2009 Cervical Cancer Screening 09/27/2014 Pap Smear 09/27/2014 09/28/2011, 07/11/2010, 07/07/2010, Additional history exists Depression, Most Recent Score >= 10 (will fire each visit until score < 10) 05/23/2023 05/22/2023 Colonoscopy 12/11/2023 12/10/2013, 11/24, 01/15/2007 Colorectal Cancer Screening 12/11/2023 GFR 05/24/2024 11/22/2023, 10/24, 11/06/2023, Additional history exists Albumin/Creatinine Ratio 08/23/2024 024, 08/23/2022, 09/20/2021 CKD HGB USE SMARTSET 37612 11/21/202411/21, 11/22/2023, 11/07/2023, Additional history exists CKD PHOS USE SMARTSET 86312 11/21/202410/25, 11/07/2023, 11/06/2023, Additional history exists DTaP,Tdap,and [...] this encounter Medical Devices Implanted Type Area Waste Cotton Cleaner Device Identifier Shelf Expiration Date Model / Serial / Lot Stent Axios 20mm - [id number] Implanted:Qty: 1 on 01/04/2021 by Leyda Garcia MD at OR [facility] N/A: Stomach [employer] : ENDOSCOPY 11/20/2021 [id number] / / [id number] documented as of this encounter Procedures Procedure Name Priority Date/Time Associated Diagnosis Comments COPPER, SERUM OR PLASMA Routine 11/22/2023 12:07 PM EDT Myelopathy (HCC) Copper deficiency myeloneuropathy (HCC) COMPREHENSIVE METABOLIC PANEL Routine 06/20/2023 2:51 PM EST Severe protein-energy malnutrition (HCC) PHOSPHORUS Routine 06/20/2023 2:51 PM EST Severe protein-energy malnutrition (HCC) MAGNESIUM Routine 06/20/2023 2:51 PM EST Severe protein-energy malnutrition (HCC) CALCIUM, IONIZED Routine 06/20/2023 2:50 PM EST Severe protein-energy malnutrition (HCC) documented in this encounter Results * COPPER, SERUM OR PLASMA (11/22/2023 12:07 PM EDT) Copper 109 70 - 175 mcg/dL 11/24/2023 2:56 AM EDT [facility] Comment: This test was developed and its analytical performance characteristics have been determined by [facility] [place], [place]. It has not been cleared or approved by the U.S. Food and Drug Administration. This assay has been validated pursuant to the CLIA regulations and is used for clinical purposes. Test Performed at: [facility] [address] Armando Chanel M.D., Ph.D.,Director of Laboratories Blood Venous blood specimen / Unknown Venipuncture / Unknown 11/22/2023 12:07 PM EDT 11/22/2023 12:07 PM EDT Evelyn Forbes MD LAB BLOOD ORDERABLES [address] [address] * PHOSPHORUS (06/20/2023 2:51 PM EST) Phosphorus 4.7 2.5 - 4.8 mg/dL 06/20/2023 3:57 PM EST [facility] 56-02 Blood Venous blood specimen / Unknown Venipuncture / Unknown 06/20/2023 2:51 PM EST 06/20/2023 2:50 PM EST Mayra Crook [facility] LAB BLOOD ORDERAB LES [facility] 56 [address] [place] [address] * MAGNESIUM (06/20/2023 2:51 PM EST) Magnesium 1.5 1.5 - 2.6 mg/dL 06/20/2023 3:57 PM EST [facility] 56 Blood Venous blood specimen / Unknown Venipuncture / Unknown 06/20/2023 2:51 PM EST 06/20/2023 2:50 PM EST Mayra Crook [facility] LAB BLOOD ORDERAB LES [facility] [address] [place] [address] * (ABNORMAL) COMPREHENSIVE METABOLIC PANEL (06/20/2023 2:51 PM EST) Pathologist [facility] BUN 38(H) 6 - 20 mg/dL 06/20/2023 3:57 PM EST [facility] Creatinine 1.8(H) 0.5 - 1.0 mg/dL 06/20/2023 3:57 PM [facility] 56 Estimated Glomerular Filtration Rate 31(L) >=60 mL/min 06/20/2023 3:57 PM [facility] 56 Comment:eGFR is calculated b ased on the CKD-EPI 2020 equation Sodium 142 135 - 146 mmol/L 06/20/2023 3:57 PM [facility] Potassium 4.4 3.5 - 5.1 mmol/L 06/20/2023 3:57 PM [facility] 56 Chloride 112(H) 98 - 107 mmol/L 06/20/2023 3:57 PM [facility] 56 CO2 15(L) 22 - 32 mmol/L 06/20/2023 3:57 PM [facility] 56 Anion Gap 15 7 - 15 mmol/L 06/20/2023 3:57 PM [facility] 56 Glucose 127(H) 70 - 120 mg/dL 06/20/2023 3:57 PM [facility] 56 Albumin 3.3(L) 3.8 - 5.0 g/dL 06/20/2023 3:57 PM EST [facility] [place] 56- AST 21 10 - 35 U/L 06/20/2023 3:57 PM EST [facility] [place] 56- Alkaline Phosphatase 85 35 - 130 U/L 06/20/2023 3:57 PM EST [facility] [place] 56- Bilirubin, Total 0.3 <=1.2 mg/dL 06/20/2023 3:57 PM EST [facility] [place] 56- Calcium 8.1(L) 8.4 - 10.2 mg/dL 06/20/2023 3:57 PM EST [facility] [place] 56- Protein 5.3(L) 6.0 - 8.3 g/dL 06/20/2023 3:57 PM EST [facility] [place] 56- ALT 32 10 - 35 U/L 06/20/2023 3:57 PM EST [facility] [place] 56- Blood Venous blood specimen / Unknown Venipuncture / Unknown 06/20/2023 2:51 PM EST 06/20/2023 2:50 PM EST Mayra A Yajairapro [facility] LAB BLOOD ORDERAB LES [facility] 56- [address] [place] [address] * CALCIUM, IONIZED (06/20/2023 2:50 PM EST) [facility] Calcium, Ionized 1.23 1.13 - 1.32 mmol/L 06/20/2023 11:09 PM EST LAB[facility]ORY [facility] Comment:This test was develo ped and its performance characteristics dtermined by [employer]. 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 Given 06/20/2023 4:03 PM EST 500 Units sodium chloride 0.9 % flush central line 10 mL 10 mL, IV Push, PRN Other, IV Flush, Starting on Mon06/20/23 at 1602, Until Mon06/20/23 at 2003, For 24 hours, Do not flush if lock, PICC, or central line not in place; IV infusing or unable to flush. Given 06/20/2023 4:02 PM EST 10 mL documented in this encounter Advance Directives Documents on File Type Date Recorded Patient Naphthalene Operator Expl anation POL 01/03/2022 [place] OR [facility] FOR LIFE-SUSTAINING TREATMENT * No Code (Latest Code Status on File) Date Activated Date Inactivated Comments 11/03/2023 5:42 PM 11/07/2023 3:43 PM This order reflects the patients wishes [...] Other - (no specific identity) Health Care Naphthalene Operator (appointed verbally by patient or by statute hierarchy) Rowdy Hogue Sibling Health Care Naphthalene Operator (appointed verbally by patient or by statute hierarchy) Care Teams Steam Service Inspector Relationship Specialty Start Date End Date Evelyn Andrews MD [address] [place] [address] [place] [address] PCP - General Family Medicine 05/04/18 documented as of this encounter
--- OUTSIDE RECORDS SUMMARY | 2023-12-07 18:00 | External Medical Summary | Summary of Care ---
Author Name Unknown Organization [facility] Address [address] [place] [address] Phone [phone] Care Team Providers Care Outreach Educator Name Role Phone Evelyn Andrews MD Primary Care Prov ider Reason for Visit * Reason Comments No Show Encounter Details Date Type Department Care Team (Late st Contact Info) Description 11/29/2023 5:00 PM EDT Telemedicine Psychiatry [facility] [address] [place] [address] Alexis Serna MD [address] [place] [address] No Show for psych appt* Allergies Active Allergy Reactions Criticality Noted Date Comments Amoxicillin Edema airway High 01/22/2003 Oxybutynin 03/25/2023 Mouth ulcers Sulfa Antibiotics Edema airway High 08/15/2006 documented as of this encounter (statuses as of 11/29/2023) Medications Medication Sig Dispensed Refills Start Date [...] FOR MIGRAINE. 10 Tablet 5 09/18/2023 Active Mmnckxnxco-YGFL-Lhymb ine 50-325-40 MG Oral Tablet (Fioricet)Indications :Migraine [...] daily. 90 Patch 3 10/16/2023 Active Nystatin 675941 UNIT/GM External Cream APPLY TO AFFECTED AREA [...] as of this encounter (statuses as of 11/29/2023) Active Problems Problem Noted Date Diagnosed Date [...] as of this encounter (statuses as of 11/29/2023) Resolved Problems Problem Noted Date Diagnosed Date Resolved Date Old [place] (myocardial infarction) 03/01/2023 03/01/2023 Atherosclerosis of [place] co ronary artery without angina pectoris 02/08/2022 [...] malnutrition 09/28/2018 09/23/2021 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/2021 BIOPHYSICS TEACHER 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 02/06/2017 05/02/2018 BIOPHYSICS TEACHER 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 02/06/2017 07/09/2019 Iron deficiency anemia 06/28/201109/20 Overview: ICD-10 update of inactive term Iron deficiency anemia 06/28/201109/20 Overview: ICD-10 update of inactive term Iron deficiency anemia pat paulino to inadequate dietary iron intake 09/26/2008 3 Secondary hyperparathyroidism, non-renal 03/27/2007 10/24/2023 Infected postoperative seroma 06/02/2003 09/20/2012 PANNICULITIS, [facility] SITE 05/14/200311/2022 documented as of this encounter (statuses as of 11/29/2023) Immunizations Name Administration Dates Next Due COVID-19 mRNA, LNP-s, No Pre serve, 2-Dose Series ([employer]) 02/16/2021,11/25/2020,11/01/2020 COVID-19, MRNA-LNP, 23-24, P F, 30 MCG/0.3 mL, 12 YRS AND ABOVE, IM ([facility]) 04/10/2023 Covid-19, Mrna, Lnp-s, Pf, B ivalent, 30 Mcg, IM, 12 yrs and above ([employer]) 04/12/2022 Pneumococcal Conjugate Vacci ne, 20-valent ([id number]) 12/10/2021 Pneumococcal Polysaccharide PPV23 (Pneumovax) 07/21/2009 Seasonal [...] as of this encounter Progress Notes * Alexis Serna MD - 11/29/2023 6:29 PM EDT Patient failed to keep appointment. documented in this encounter Plan of Treatment Upcoming Encounters Date Type Department Care Team (Late st Contact Info) Description 12/04/2023 10:00 AM EDT Nurse Only Hematology/Oncology Treatment, [place] [address] [place] [phone] Nurse, Med 4 [address] [facility] [place] [address] 12/04/2023 3:45 PM EDT Office Visit Urology, [facility] [address] [facility] [place] [address] Christopher Almonte MD 27 [facility] [address] [place] [address] 12/05/2023 10:20 AM EDT Telemedicine Nutrition & Weight Management, [place] [address] [place], [place] [phone] Vic Wilkerson DO [address] [place] [address] 12/13/2023 10:00 AM EDT Telemedicine Family [address] [phone] vEelyn Andrews MD [address] [place], [place] [address] [address] 04/29/2024 8:40 AM EST [facility] [place] [address] [place] [address] Aris Mohr MD [address] [place] [address] 09/16/2024 11:20 AM EDT Office Visit Neurology [facility] [place] [address] [place] [address] Jodee Austin MD [address] [place], [place] [phone] Health Maintenance Due Date Last Done Comments [...] 024, 08/23/2022, 09/20/2021 CKD HGB USE SMARTSET 57986 11/21/202411/21, 11/22/2023, 11/07/2023, Additional history exists CKD PHOS USE SMARTSET 71177 11/21/202410/25, 11/07/2023, 11/06/2023, Additional history exists DTaP,Tdap,and [...] this encounter Medical Devices Implanted Type Area Human Resources Mgr Device Identifier Shelf Expiration Date Model / Serial / Lot Stent Axios 20mm - [id number] Implanted:Qty: 1 on 01/04/2021 by Leyda Garcia MD at OR [facility] N/A: Stomach [employer] : ENDOSCOPY 11/20/2021 [id number] / / [id number] documented as of this encounter Visit Diagnoses Diagnosis No Show for psych appt- Primary documented in this encounter Advance Directives Documents on File Type Date Recorded Patient Control System Manager Expl anation POLST 01/03/2022 [place] [facility] FOR LIFE-SUSTAINING TREATMENT * No Code (Latest [...] Other - (no specific identity) Health Care Control System Manager (appointed verbally by patient or by statute hierarchy) Rowdy Hogue Sibling Health Care Control System Manager (appointed verbally by patient or by statute hierarchy) Care Teams Outreach Educator Relationship Specialty Start Date End Date Evelyn Andrews MD [address] [place] [address] [place] [phone] PCP - General Family Medicine 05/04/18 documented as of this encounter
--- OUTSIDE RECORDS SUMMARY | 2023-12-07 18:00 | External Medical Summary | Summary of Care ---
Author Name Unknown Organization [facility] Address [address] [place] [address] Phone [phone] Care Team Providers Care Programming Director Name Role Phone Evelyn Andrews MD Primary Care Prov ider Reason for Visit * Reason Comments Follow Up Encounter Details Date Type Department Care Team (Late st Contact Info) Description 12/04/2023 3:45 PM EDT Office Visit Urology, [facility] [address] [facility] [place] [address] Christopher Almonte MD [address] [facility] [address] [place] [address] Continuous leakage of urine*; Recurrent UTI; Renal insufficiency; Kidney stone Allergies Active Allergy Reactions Criticality Noted Date [...] FOR MIGRAINE. 10 Tablet 5 09/18/2023 Active Yqlznflyre-RODF-Wlwsv ine 50-325-40 MG Oral Tablet (Fioricet)Indications :Migraine [...] daily. 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 08/17/2021 10/24/2023 Nephrolithiasis 02/16/2021 01/27/2022 Overview: Cysto 11/24/21 Recurrent major depressive d isorder, in partial remission 07/09/2019 07/13/2023 Overview: Depression is included in the Bipolar condition on pl PFO with atrial septal aneurysm 05/16/2019 06/07/2022 Iron deficiency anemia 04/24/201911/29 Overview: More specific on PL Protein-calorie malnutrition 09/28/2018 09/23/2021 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/2021 MANAGER SPRING 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 02/06/2017 05/02/2018 MANAGER SPRING 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 02/06/2017 07/09/2019 Iron deficiency anemia 06/28/201109/20 Overview: ICD-10 update of inactive term Iron deficiency anemia 06/28/201109/20 Overview: ICD-10 update of inactive term Iron deficiency anemia pat paulino to inadequate dietary iron intake 09/26/2008 3 Secondary hyperparathyroidism, non-renal 03/27/2007 10/24/2023 Infected postoperative seroma 06/02/2003 09/20/2012 PANNICULITIS, [facility] SITE 05/14/200311/2022 documented as of this encounter (statuses as of 12/04/2023) Immunizations Name Administration Dates Next Due COVID-19 mRNA, LNP-s, No Pre serve, 2-Dose Series (Kontron) 02/16/2021,11/25/2020,11/01/2020 COVID-19, MRNA-LNP, 23-24, P F, 30 MCG/0.3 mL, 12 YRS AND ABOVE, IM (INWEBTURE Limited-Comirnat) 04/10/2023 Covid-19, Mrna, Lnp-s, Pf, B ivalent, 30 Mcg, IM, 12 yrs and above (Pfizer) 04/12/2022 Pneumococcal Conjugate Vacci ne, 20-valent ([id number]) 12/10/2021 Pneumococcal Polysaccharide PPV23 (Pneumovax) 07/21/2009 Seasonal [...] - Inhaled Oxygen Concentration - - Weight 36.9 kg (81 lb 4.8 oz) 12/04/2023 4:00 PM EDT Height - - Body Mass Index 16.99 11/03/2023 5:00 PM EDT documented in this encounter Functional Status [...] as of this encounter Progress Notes * Christopher Almonte MD - 12/04/2023 3:45 PM EDT [id number] PCP: TAMY LAUREANO [address] [place], [place] [address] Chandrika Hogue is a 58 year old female, who presents for follow-up of her history chronic pain and voiding symptoms. Patient's past notes reviewed. Patient notes difficulties with urinary incontinence. Her difficulties with urinary retention are appreciated, inpatient consultation with Dr. Rendon is noted, successful TOV undertaken. Ultrasound and CT imaging are reviewed demonstrating post nephrectomy status on right. She continues to have failure to thrive, intermittent TPN. She notes she uses 4 diapers a day for leakage. Urolithiasis: Patient is being seen for stone disease today. Problem has been present for years. They have been seen in the ER for their stones previously., They have been hospitalized for stone in the past. and They have previously required surgery for stone management. Severity is moderate Problem is getting worse. Patient has had the following imaging done: CT scan. In the past they have had ureteral stent placement, ureteroscopy, laser lithotripsy to manage their stones, Nov 2021 and Apr 2022. Right simple nephrectomy done October 2022 for intractable pain in poorly functioning kidney. Previous evaluation was done by urologist. Urinary Incontinence: Patient is being seen for urinary incontinence. Problem has been present since last year. Severity is moderate. Problem is getting worse. Urinary incontinence is mixed incontinence. Previously on oxybutynin, stopped due mouth ulcers. Provided mirabegron, excessively expensive. Recurrent UTI: Typically Klebsiella or Enterococcus, multi-drug resistant. History of candidal urine infection. Nidus for infection seems to be the right kidney and the patient's cystocele. Creatinine Results: Lab Results Component Value Date/Time CREATININE - [facility] 1.7 (H) 11/22/2023 12:07 PM CREATININE - [facility] 1.1 (H) 11/07/2023 04:25 AM CREATININE - [facility] 1.2 (H) 11/06/2023 03:36 AM CREATININE - [facility] 1.0 07/16/2020 12:54 PM CREATININE - [facility] 1.1 (H) 06/23/2020 09:49 AM CREATININE - [facility] 1.3 (H) 01/17/2020 01:14 PM CREATININE KARLI 119 06/17/2019 01:55 PM CREATININE [facility] 117 05/02/2018 03:26 PM CREATININE KARLI - [facility] 99 07/29/2020 03:25 PM CREATININE, 24 HOUR URINE - [facility] 0.694 (L) 05/10/2019 02:25 PM CREATININE, 24 HOUR URINE - [facility] 0.74 05/22/2013 11:39 AM CREATININE, RANDOM URINE - [facility] 47 08/23/2023 02:29 PM CREATININE, RANDOM URINE - [facility] 6 08/23/2022 03:30 PM CREATININE, RANDOM URINE - [facility] 62 09/20/2021 04:13 PM CREATININE-OU[facility]IDE [facility] 0.98 11/30/2020 12:00 AM CREATININE-[facility] 0.60 10/05/2020 12:00 AM CREATININE-[facility] 0.70 10/02/2020 12:00 AM Current Outpatient Medications Medication Sig Dispense Refill [...] DAILY NEEDED FOR MIGRAINE. 10 Tablet 5 Kpeeitrhkd-WVDR-Dvmjtrpn 50-325-40 MG Oral Tablet (Fioricet) TAKE ONE TABLET EVERY 6 HOURS NEEDED FOR PAIN 90 Tablet 1 Pregabalin 25 MG Oral Capsule (Lyrica) Take 1 Capsule by mouth in the morning and 1 Capsule before bedtime. 60 Capsule 5 Lidocaine 4 % External Patch (Aspercreme) Place 1 Patch over 12 hours topically on the skin daily. 90 Patch 3 Nystatin [id number] UNIT/GM External Cream APPLY TO AFFECTED AREA [...] mouth daily as needed for Pain, Severe. 30Tablet 0 busPIRone HCl 5 MG Oral Tablet (Buspar) Take 1 Tablet by mouth in the morning and 1 Tablet at noon and 1 Tablet before bedtime. 90 Tablet 5 No current facility-administered medications for this visit. Review of patient's allergies indicates: Allergen Reactions Amoxicillin Edema airway Sulfa Antibiotics Edema airway Oxybutynin Mouth ulcers Social History: Social History Tobacco Use Smoking status: Every Day Current packs/day: 0.50 Average packs/day: 0.5 packs/day for 30.0 years (15.0 ttl pk-yrs) Types: Cigarettes Smokeless tobacco: Never Substance Use Topics Alcohol use: Not Currently Vaping/E-Cigarette Use Vaping/E-Cigarette Use Never User Passive Exposure No Counseling Given? No Vaping/E-Cigarette Substances Nicotine No Other No Flavoring No THC No Cannabidiol (CBD) No Vaping/E-Cigarette Devices Disposable No Pre-filled or Refillable Cartridge No Refillable Tank No Pre-filled Pod No Family History Problem Relation Name Age of Onset Heart Disorder Mother elderly Hypertension Mother Kidney disease Father Brain cancer Father (possibly) Past Surgical History: Procedure Laterality Date COLONOSCOPY W/ BIOPSY (RECTUM) 01/15/2007 normal COLONOSCOPY, DIAGNOSTIC (RECTUM) 12/10/2013 normal bx/COLONOSCOPY FLEXIBLE PROXIMAL DIAGNOSTIC performed by Milind Hernandez MD at ENDOSCOPY [facility] COLPOSCPY CERVIX W/BX AND EC 08/24/2009 Colposcopy with biopsies COLPSCPY CERVIX W/LOOP ELECT 09/24/2009 LEEP of cervix CYSTO W/URETER STRICTURE TX 07/19/2006 CYSTO/URETERO W/LITHOTRIPSY Right 11/24/2021 CYSTOURETHROSCOPY URETEROSCOPY WITH LITHOTRIPSY AND STENT INSERTION performed by Christopher Almonte MD at OR [facility] CYSTO/URETERO W/LITHOTRIPSY Right 05/02/2022 CYSTOURETHROSCOPY URETEROSCOPY WITH LITHOTRIPSY AND STENT INSERTION performed by Christopher Almonte MD at [facility] CYSTO/URETERO W/LITHOTRIPSY Right 09/26/2022 CYSTOURETHROSCOPY URETEROSCOPY WITH LITHOTRIPSY AND STENT INSERTION performed by Christopher Almonte MD at [facility] CYSTOSCOPY/INSERTION OF STENT 07/19/2006 CYSTOSCOPY/INSERTION OF STENT Right 05/16/2022 CYSTOURETHROSCOPY WITH INSERTION URETERAL STENT performed by Christopher Almonte MD at [facility] CYSTOSCOPY/URETERAL CATHETER Right 11/24/2021 CYSTOURETHROSCOPY WITH URETERAL CATHETER performed by Christopher Almonte MD at OR [facility] CYSTOURETERO W/LITHOTRIPSY 07/19/2006 EGD, FLEXIBLE, DIAGNOSTIC 11/09/2011 UPPER GI ENDOSCOPY DIAGNOSTIC performed by MILIND HERNANDEZ at [facility] EGD, FLEXIBLE, DIAGNOSTIC 04/19/2013 UPPER GI ENDOSCOPY DIAGNOSTIC performed by T[facility] Qu[facility]les [facility] EGD, FLEXIBLE, DIAGNOSTIC 12/10/2013 normal/ESOPHAGOGASTRODUODENOSCOPY (EGD), FLEXIBLE, TRANSORAL, DIAGNOSTIC performed by Milind Hernandez MD at [facility]COPY [facility] EGD, FLEXIBLE, DIAGNOSTIC N/A 05/12/2015 ESOPHAGOGASTRODUODENOSCOPY (EGD), FLEXIBLE, TRANSORAL, DIAGNOSTIC performed by Herberth Chavez OR [facility] EGD, FLEXIBLE, PLACE GASTRO TUBE N/A 04/02/2021 ESOPHAGOGASTRODUODENOSCOPY (EGD), FLEXIBLE, TRANSORAL, WITH PERCUTANEOUS GASTROSTOMY INSERTION performed by Chris Suresh MD at [facility] EGD, FLEXIBLE, W/BIOPSY 01/20/2010 inflammation of stomach EGD, FLEXIBLE, W/CYST DRAINAGE N/A 01/04/2021 AXIOS stent performed/due to inability to localize a site for safe percutaneous placement for PEG not completed/ESOPHAGOGASTRODUODENOSCOPY (EGD), FLEXIBLE, TRANSORAL, WITH DRAINAGE PSEUDOCYST performed by Leyda Garcia MD at OR [facility] ERCP, DIAGNOSTIC, SPECIMEN COLLECTION 07/31/2013 ENDOSCOPIC RETROGRADE CHOLANGIOPANCREATOGRAPHY (ERCP) DIAGNOSTIC performed [place] Darian Griffin [place] [facility] [place]IC [place] FOR OBESITY 06/26/2000 [place]/ amber en y INFORMATION plastic surgery pannus, arms INFORMATION 2020 Heart Cath. INSER AMY CAT,W/O PUMP;5YR/OLD N/A 12/09/2022 INSERT TUNNELED CENTRAL VENOUS CATHETER AGE 5 OR OLDER performed by Cezar Lerma DO at OR [facility] IOF CT GUIDED NEEDLE BIOPSY 06/23/2014 CT GUIDED NEEDLE ASPIRATION BIOPSY performed by Kali Velez MD [place] [facility] JEJUNOSTOMY, LAPAROSCOPIC N/A 04/02/2021 LAPAROSCOPIC ILEOSTOMY OR JEJUNOSTOMY performed by Chris Suresh MD at [place] [facility] LAP SURGICAL, GASTROSTOMY 02/12/2014 02/12/2014 LAPAROSCOPIC GASTROSTOMY WITHOUT RECONSTRUCION GASTRIC TUBE performed by Chris Suresh MD at [facility] LAPARO RADICAL NEPHRECTOMY Right 11/17/2022 LAPAROSCOPIC RADICAL NEPHRECTOMY performed by Christopher Almonte MD at [facility] LAPAROSCOPE PROCEDURE, LIVER 07/31/2013 UNLISTED LAPAROSCOPIC PROCEDURE LIVER performed by Chris Suresh MD at [facility] LAPAROSCOPY DIAGNOSTIC 07/31/2013 LAPAROSCOPY DIAGNOSTIC performed by Chris Suresh MD at [facility] LAPAROSCOPY DIAGNOSTIC N/A 05/12/2015 05/12/2015 LAPAROSCOPY DIAGNOSTIC performed by Chris Suresh MD at [facility]/ REDUCTION OF BOWEL OBSTRUCTION 06/26/2004 Dr. Temple REMOVE GALLBLADDER 06/26/1979 Past Medical History: Diagnosis Date CAD (coronary artery disease) Chronic diarrhea MANAGER SPRING 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 (HCC) 02/06/2017 Depressive disorder, not elsewhere classified Infected postoperative seroma 06/02/2003 INFORMATION 06/2006 kidney stone/Dr. Bowden Iron deficiency anemia secondary to gastric bypass Migraine sees Dr. Shannon Nephrolithiasis 02/16/2021 Cysto 11/24/21 Other anxiety states Other vitamin B12 deficiency anemia secondary to gastric bypass Papanicolaou smear of cervix with atypical squamous cells cannot exclude high grade squamous intraepithelial lesion (ASC-H) 2010 mady 3 after colpo Tobacco use disorder Vitamin D deficiency Patient Active Problem List Diagnosis IRON DEF ANEMIA DIETARY ADVANCE DIRECTIVE INFORMATION Anemia Intestinal postoperative nonabsorption MEDICATION USE AGREEMENT Status post bariatric surgery Migraine variant Chronic pain syndrome Osteopenia of neck of femur Severe protein-energy malnutrition (HCC) Myelopathy (HCC) Hereditary and idiopathic peripheral neuropathy Chronic kidney disease, stage 3a (HCC) Cachexia (HCC) Copper deficiency myeloneuropathy (HCC) Encounter for adjustment and management of vascular access device Gastrostomy malfunction (HCC) Failure to thrive in adult On total parenteral nutrition (TPN) MDD (major depressive disorder), recurrent episode, moderate (HCC) Bipolar disorder (HCC) Incontinence of feces with fecal urgency MDD (major depressive disorder), recurrent severe, without psychosis (HCC) Tobacco abuse Fall at home Generalized weakness Adjustment disorder ROBINSON (acute kidney injury) (HCC) Acute urinary retention Hypoxia Multifocal pneumonia Acute hypoxic respiratory failure (HCC) Mixed incontinence Retention of urine Acute pain of right shoulder Constitutional: (-) fever and (-) chills ENT: (-) stridor Female : (+) see HPI Musculoskeletal: (+) back pain/problems and (+) hip pain/problems Neurology: (+) loss of balance Psychiatry: (+) depression Pulmonary: (+) dyspnea with exertion Abdominal/GI: (+) difficulties with swallowing Physical Exam Nursing note reviewed. Constitutional: General: She is not in acute distress. Appearance: She is not ill-appearing or toxic-appearing. Comments: Using cane, scoliotic HENT: Head: Normocephalic. Right Ear: External ear normal. Left Ear: External ear normal. Nose: Nose normal. Mouth/Throat: Mouth: Mucous membranes are moist. Eyes: Extraocular Movements: Extraocular movements intact. Cardiovascular: Pulses: Normal pulses. Pulmonary: Effort: Respiratory distress (restrictive) present. Abdominal: Palpations: Abdomen is soft. Musculoskeletal: General: Deformity (scoliosis) present. Neurological: Mental Status: She is oriented to person, place, and time. Motor: Weakness present. Gait: Gait abnormal. Psychiatric: Behavior: Behavior normal. Thought Content: Thought content normal. Impression/Plan: 58 yo female with persistent incontinence, back pain. Patient inquires regarding ongoing back pain - I suspect musculoskeletal seen her lack of a right sided kidney. Patient notes she continues to undergo evaluation for her history of multiple sclerosis. Patient reports significant bother associated with her urinary incontinence. Will provide the patient a trial of a low-dose anticholinergic considering her difficulties obtaining mirabegron due to mcginnis. Possible side effects reviewed. Patient requests prescription via mail order, sent per request. Will arrange for follow-up in 2-3 weeks with nursing staff to allow for postvoid residual and ensure a lack of recurrent urinary retention. Otherwise, will see the patient back in 2-3 months. She notes difficulty with compliance with follow-up visits due to transportation issues. She is encouragedto consider usage of telehealth services to enable better compliance. Above content is personally reviewed. Patient vocalizes good understanding of the treatment plan. Christopher Almonte MD 2:11 PM 12/04/2023 documented in this encounter Nursing Notes * Jud Etienne LPN - 12/04/2023 4:00 PM EDT 8 month ret. Patient presents alone. C/o pressure and burning with urination, right flank pain, incontinence. documented in this encounter Plan of Treatment Upcoming Encounters Date Type Department Care Team (Late st Contact Info) Description 12/05/2023 10:20 AM EDT Telemedicine Nutrition & Weight Management, [place] [address] [place] [address] Vic Wilkerson DO [address] [place] [address] 12/11/2023 2:30 PM EDT Immunization/Injectio n Hematology/Oncology Treatment, [place] [address] [place] [phone] Nurse, Med [address] [place] [address] 12/13/2023 10:00 AM EDT Telemedicine Family Medicine [address] [phone] Evelyn Andrews MD [address] [place] [address] [place] [address] 12/18/2023 9:00 AM EDT [facility] [address] [place] [address] Nurse Brian [facility] [place] [address] [place] [address] 12/18/2023 2:30 PM EDT Immunization/Injectio n Hematology/Oncology Treatment, [address] [phone] Nurse, Med 4 [address] [facility] [place] [address] 01/01/2024 6:30 PM EDT Telemedicine Psychiatry Marlena Coppola [place] [address] [place] [address] Alexis Serna MD [address] [place] [address] 04/29/2024 8:40 AM EST Office Visit Neurology [facility] [address] [place] [address] Aris Mohr MD [address] [place] [address] 09/16/2024 11:20 AM EDT Office Visit Neurology [facility] [address] [place] [address] Jodee Austin MD [address], [place] [id number] Health Maintenance Due Date Last Done Comments [...] 024, 08/23/2022, 09/20/2021 CKD HGB USE SMARTSET 08668 11/21/202411/21, 11/22/2023, 11/07/2023, Additional history exists CKD PHOS USE SMARTSET 74180 12/03/202411/24, 11/22/2023, 11/07/2023, Additional history exists DTaP,Tdap,and [...] this encounter Medical Devices Implanted Type Area Assembly Machine Offbearer Device Identifier Shelf Expiration Date Model / Serial / Lot Stent Axios 20mm - [id number] Implanted:Qty: 1 on 01/04/2021 by Leyda Garcia MD at OR [facility] N/A: Stomach [employer] : ENDOSCOPY 11/20/2021 [id number] / / [id number] documented as of this encounter Visit Diagnoses Diagnosis Continuous leakage of urine- Primary Continuous leakage Recurrent UTI Urinary tract infection, site not specified Renal insufficiency Unspecified disorder of kidney and ureter Kidney stone Calculus of kidney documented in this encounter Advance Directives Documents on File Type Date Recorded Patient Public Relations Writer Expl anation POLST 01/03/2022 [place] OR [facility] FOR LIFE-SUSTAINING TREATMENT * No Code (Latest [...] Other - (no specific identity) Health Care Public Relations Writer (appointed verbally by patient or by statute hierarchy) Rowdybrady Hogue Sibling Health Care Public Relations Writer (appointed verbally by patient or by statute hierarchy) Care Teams Programming Director Relationship Specialty Start Date End Date Evelyn Andrews MD [address] [place] [address] [place] [address] PCP - General Family Medicine 05/04/18 documented as of this encounter
--- OUTSIDE RECORDS SUMMARY | 2023-12-07 18:00 | External Medical Summary ---
Author Name Unknown Address Unknown Organization K09:[facility] [address] [place] [address] Laboratory Report Ordering Provider Test Date Status TONY RAMIREZ 12/04/2023 14:56:58 Final Observation Date Value Abnormality Reference (Units ) Status Phosphate 12/04/2023 14:56:58 4.3 2.5-4.8 (m g/dL) Final Performing Location [facility] [place] [address]
--- OUTSIDE RECORDS SUMMARY | 2023-12-07 18:00 | External Medical Summary | Summary of Care ---
Author Name Unknown Organization [facility] Address [address] [place] [address] Phone [phone] Care Team Providers Care Manager Therapy Name Role Phone Evelyn Andrews MD Primary Care Prov ider Reason for Visit * Reason Comments Medication Management Encounter Details Date Type Department Care Team (Late st Contact Info) Description 11/28/2023 Documentation [facility], [place] [address] [place] [address] [address] [address] Allergies Active Allergy Reactions Criticality Noted Date Comments Amoxicillin Edema airway High 01/22/2003 Oxybutynin 03/25/2023 Mouth ulcers Sulfa Antibiotics Edema airway High 08/15/2006 documented as of this encounter (statuses as of 11/28/2023) Medications Medication Sig Dispensed Refills Start Date End Date Status CYANOCOBALAMIN 1000 MCG/ML IJ SOLN one injection monthly Active CALCITRIOL 0.25 MCG PO CAPS 1 CAPSULE BY MOUTH MONDAYS/D /FRIDAYS 5 04/10/2014 [address] [facility] [...] FOR MIGRAINE. 10 Tablet 5 09/18/2023 Active Ptvjfyqunf-IKAS-Zafzr ine 50-325-40 MG Oral Tablet (Fioricet)Indications :Migraine [...] daily. 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 02/06/2017 05/02/2018 ELECTRIC [employer] OPERATOR 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 02/06/2017 07/09/2019 Iron deficiency anemia 06/28/201109/20 Overview: ICD-10 update of inactive term Iron deficiency anemia 06/28/201109/20 Overview: ICD-10 update of inactive term Iron deficiency anemia pat paulino to inadequate dietary iron intake 09/26/2008 3 Secondary hyperparathyroidism, non-renal 03/27/2007 10/24/2023 Infected postoperative seroma 06/02/2003 09/20/2012 PANNICULITIS, [facility] SITE 05/14/200311/2022 documented as of this encounter (statuses as of 11/28/2023) Immunizations Name Administration Dates Next Due COVID-19 mRNA, LNP-s, No Pre serve, 2-Dose Series ([facility]) 02/16/2021,11/25/2020,11/01/2020 COVID-19, MRNA-LNP, 23-24, P F, 30 MCG/0.3 mL, 12 YRS AND ABOVE, IM ([facility]) 04/10/2023 Covid-19, Mrna, Lnp-s, Pf, B ivalent, 30 Mcg, IM, 12 yrs and above ([facility]) 04/12/2022 Pneumococcal Conjugate Vacci ne, 20-valent ([id number]) 12/10/2021 Pneumococcal Polysaccharide PPV23 (Pneumovax) 07/21/2009 Seasonal [...] as of this encounter Progress Notes * Mayra Crook, [facility] - 11/28/2023 5:02 PM EDT [facility] Adult TPN Documentation Patient Phone Numbers Results for orders placed or performed during the hospital encounter of 11/03/23 BASIC METABOLIC PANEL Result Value Ref Range BUN 48 (H) 6 - 20 mg/dL Creatinine 1.1 (H) 0.5 - 1.0 mg/dL Estimated Glomerular Filtration Rate 58 (L) >=60 mL/min Sodium 141 135 - 146 mmol/L Potassium 4.1 3.5 - 5.1 mmol/L Chloride 110 (H) 98 - 107 mmol/L CO2 18 (L) 22 - 32 mmol/L Anion Gap 13 7 - 15 mmol/L Glucose 116 70 - 120 mg/dL Calcium 8.7 8.4 - 10.2 mg/dL Results for orders placed or performed in visit on 11/22/23 COMPREHENSIVE METABOLIC PANEL Result Value Ref Range BUN 45 (H) 6 - 20 mg/dL Creatinine 1.7 (H) 0.5 - 1.0 mg/dL Estimated Glomerular Filtration Rate 34 (L) >=60 mL/min Sodium 141 135 - 146 mmol/L Potassium 4.8 3.5 - 5.1 mmol/L Chloride 113 (H) 98 - 107 mmol/L CO2 11 (L) 22 - 32 mmol/L Anion Gap 17 (H) 7 - 15 mmol/L Glucose 83 70 - 120 mg/dL Albumin 4.3 3.8 - 5.0 g/dL AST 17 10 - 35 U/L Alkaline Phosphatase 196 (H) 35 - 130 U/L Bilirubin, Total <0.2 <=1.2 mg/dL Calcium 8.6 8.4 - 10.2 mg/dL Protein 6.8 6.0 - 8.3 g/dL ALT 23 10 - 35 U/L Lab Results Component Value Date/Time MAGNESIUM - [facility] 2.2 11/22/2023 12:07 PM MAGNESIUM - [facility] 1.7 05/10/2019 02:25 PM MAGNESIUM URINE 24HR 107 05/22/2013 11:39 AM MAGN[facility]IUM[facility] 1.3 (L) 11/30/2020 04:26 AM Lab Results Component Value Date/Time PHOSPHORUS - [facility] 5.9 (H) 11/22/2023 12:07 PM PHOSPHORUS - [facility] 3.9 05/10/2019 02:25 PM PHOSPHORUS, 24 HOUR URINE - [facility] 0.402 05/22/2013 11:39 AM [facility] 4.3 11/30/2020 12:00 AM [facility] 4.3 11/28/2020 09:46 AM Lab Results Component Value Date/Time CALCIUM - [facility] 8.6 11/22/2023 12:07 PM CALCIUM - [facility] 8.5 07/16/2020 12:54 PM CALCIUM, 24 HOUR URINE - [facility] 0.065 05/10/2019 02:25 PM CALCIUM, IONIZED - [facility] 1.33 (H) 11/22/2023 12:07 PM CALCIUM, IONIZED - [facility] 1.33 (H) 07/21/2009 11:31 AM Patient weight (kg):38.6 kg (11/22/23) 40.5 kg (11/07/23) Amino acids (gm): 60 (was 65) Dextrose (gm): 190 Lipids (gm): 35 Days per week (lipids): 4 Volume (ml): 1000 Cycle (hr): 12 with one hour taper down Days per week infused: 4 Sodium Chloride (mEq): 0 Sodium Phosphate (mM): 0 (was 10) Sodium Acetate (mEq): 97 (was 84) Potassium Chloride (mEq): 0 Potassium Phosphate (mM): 0 Potassium Acetate (mEq): 40 Calcium Gluconate (mEq): 2 (was 4) Magnesium Sulfate (mEq): 4 Multiple Trace elements (ml): - Multivits (ml): 10 (4 times per week) Zinc (mg): 5 Selenium (mcg): 100 Copper Chloride (mg): 0.4 mg Manganese (mg): 0.055 Chromium (mcg): - Human Regular Insulin (Units): - Octreotide (mcg): - Famotidine (mg): - Other: -Thiamine 100 mg (4 times per week) Client is a 58 yo female on TPN for severe malnutrition. Discussed with Dr. Wilkerson on 11/23/23 : Thefollowing changes were made on TPN 11/24/23: Continue TPN with decreased Amino Acids 60 Grams/Day. As per collaborative practice agreement remove Sodium Phosphate, change Na Acetate to 97 mEq/per Day, and decrease Ca Gluconate to 2 mEq.Day. 11/28/23: Patient was sent 4 TPNs with above changes on 11/24/23 to cover TPN through 11/30/23. 3 TPNs were remaining in home when nurse called today. She skipped her TPN on Monday. She also missed her dressing changes and labs since someone keeps changing the date. Will send 4 bags TPN to cover through 12/07/23. She will get next weekly labs on 12/04/23: CMP, Magnesium, Phosphorus, and ionized Calcium (Also, added on chromium, selenium, and lipase since missed on comprehensive lab draw on 11/22/23). Will consider increasing Zinc in TPN on next fill. Next nutrition appointment: 12/05/23 Mayra Crook RPh 11/28/2023 5:02 PM documented in this encounter Plan of Treatment Upcoming Encounters Date Type Department Care Team (Late st Contact Info) Description 11/29/2023 5:00 PM EDT Telemedicine Psychiatry [facility] [place] [address] [place] [phone] Alexis Serna MD [address] [place] [phone] 12/04/2023 10:00 AM EDT Nurse Only Hematology/Oncology Treatment, [place] [address] [place] [address] Nurse, Med [address] [place] [address] 12/04/2023 3:45 PM EDT Office Visit Urology, [facility] [address] [facility] [place] [address] Christopher Almonte MD [address] [facility] [address] [place] [address] 12/05/2023 10:20 AM EDT Telemedicine Nutrition & Weight Management, [place] [address], [place] [id number] Vic Wilkerson DO [address] [place] [address] 12/13/2023 10:00 AM EDT Telemedicine Family Medicine [address] [phone] Evelyn Andrews MD [address] [place] [address] [place] [address] 04/29/2024 8:40 AM EST Office Visit Neurology [facility] [address] [place] [address] Aris Mohr MD [address] [place] [address] 09/16/2024 11:20 AM EDT Office Visit Neurology [facility] [address] [place] [address] Jodee Austin MD [address] [place] [address] Health Maintenance Due Date Last Done Comments HPV/Co-Test 1993 Cologuard 2008 Fecal Occult Blood Test 2008 Sigmoidoscopy 2008 Mammogram 08/18/2011 08/18/2010, 08/11/2009 Cervical Cancer Screening 09/27/2014 Pap Smear 09/27/2014 09/28/2011, 0711/2010, 07/07/2010, Additional history exists Depression, Most Recent Score >= 10 (will fire each visit until score < 10) 05/23/2023 05/22/2023 Colonoscopy 12/11/2023 12/10/2013, 11/24, 01/15/2007 Colorectal Cancer Screening 12/11/2023 GFR 05/24/2024 11/22/2023, 10/24, 11/06/2023, Additional history exists Albumin/Creatinine Ratio 08/23/2024 024, 08/23/2022, 09/20/2021 CKD HGB USE SMARTSET 34230 11/21/202411/21, 11/22/2023, 11/07/2023, Additional history exists CKD PHOS USE SMARTSET 71818 11/21/2024 0502/2024, 11/07/2023, 11/06/2023, Additional history exists DTaP,Tdap,and Td [...] this encounter Medical Devices Implanted Type Area Junior Bookkeeper Device Identifier Shelf Expiration Date Model / Serial / Lot Stent Axios 20mm - [id number] Implanted:Qty: 1 on 01/04/2021 by Leyda Garcia MD at OR [facility] N/A: Stomach [employer] : ENDOSCOPY 11/20/2021 [id number] / / [id number] documented as of this encounter Advance Directives Documents on File Type Date Recorded Patient Corrosion Control Specialist Expl anation POLST 01/03/2022 [place] [facility] FOR LIFE-SUSTAINING TREATMENT * No Code [...] Other - (no specific identity) Health Care Corrosion Control Specialist (appointed verbally by patient or by statute hierarchy) Rowdybrady [place] Sibling Health Care Corrosion Control Specialist (appointed verbally by patient or by statute hierarchy) Care Teams Manager Therapy Relationship Specialty Start Date End Date Evelyn Andrews MD [address] [place] [address] [place] [address] PCP - General Family Medicine 05/04/18 documented as of this encounter
--- OUTSIDE RECORDS SUMMARY | 2023-12-07 18:01 | External Medical Summary | Summary of Care ---
Author Name Unknown Organization [facility] Address [address] [place] [address] Phone [phone] Care Team Providers Care Back Shoe Operator Name Role Phone Evelyn Andrews MD Primary Care Prov ider Reason for Visit * Reason Comments Outpatient Testing Encounter Details Date Type Department Care Team (Late st Contact Info) Description 11/22/2023 11:50 AM EDT Laboratory Laboratory [address] [place] [phone] [facility] [address] [place] [address] Suprapubic pain; Severe protein-energy malnutrition (HCC); Spontaneous bruising Allergies Active Allergy Reactions Criticality Noted Date Comments Amoxicillin Edema airway High 01/22/2003 Oxybutynin 03/25/2023 Mouth ulcers Sulfa Antibiotics Edema airway High 08/15/2006 documented as of this encounter (statuses as of 11/23/2023) Medications Medication Sig Dispensed Refills Start Date [...] FOR MIGRAINE. 10 Tablet 5 09/18/2023 Active Efjkeodqto-OMDC-Itjzk ine 50-325-40 MG Oral Tablet (Fioricet)Indications :Migraine [...] daily. 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/2021 BRAND MARKETING SPECIALIST 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 02/06/2017 05/02/2018 BRAND MARKETING SPECIALIST 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 02/06/2017 07/09/2019 Iron deficiency anemia 06/28/201109/20 Overview: ICD-10 update of inactive term Iron deficiency anemia 06/28/201109/20 Overview: ICD-10 update of inactive term Iron deficiency anemia pat paulino to inadequate dietary iron intake 09/26/2008 3 Secondary hyperparathyroidism, non-renal 03/27/2007 10/24/2023 Infected postoperative seroma 06/02/2003 09/20/2012 PANNICULITIS, [facility] SITE 05/14/200311/2022 documented as of this encounter (statuses as of 11/23/2023) Immunizations Name Administration Dates Next Due COVID-19 mRNA, LNP-s, No Pre serve, 2-Dose Series ([employer]) 02/16/2021,11/25/2020,11/01/2020 COVID-19, MRNA-LNP, 23-24, P F, 30 MCG/0.3 mL, 12 YRS AND ABOVE, IM ([employer]) 04/10/2023 Covid-19, Mrna, Lnp-s, Pf, B ivalent, 30 Mcg, IM, 12 yrs and above ([employer]) 04/12/2022 Pneumococcal Conjugate Vacci ne, 20-valent ([id number]) 12/10/2021 Pneumococcal Polysaccharide PPV23 (Pneumovax) 07/21/2009 Seasonal [...] No 11/03/2023 documented as of this encounter Plan of Treatment Upcoming Encounters Date Type Department Care Team (Late st Contact Info) Description 11/27/2023 10:45 AM EDT Nurse Only Hematology/Oncology Treatment, [place] [address] [place] [address] Nurse, Med 4 [address] [facility] [place] [address] 11/29/2023 5:00 PM EDT Telemedicine Psychiatry [place] [address] [place] [phone] Alexis Serna MD [address] [place] [address] 12/04/2023 10:00 AM EDT Nurse Only Hematology/Oncology Treatment, [place] [address] [place] [address] Nurse, Med 4 200 [facility] [place] [address] 12/04/2023 3:45 PM EDT Office Visit Urology, [facility] [address] [facility] [place] [address] Christopher Almonte MD 27 [facility] [address] [place] [address] 12/05/2023 10:20 AM EDT Telemedicine Nutrition & Weight Management, [place] [address] [place], [place] [id number] Vic Wilkerson DO [address] [place], [place] [phone] 12/13/2023 10:00 AM EDT Telemedicine Family Medicine [address] [phone] Evelyn Andrews MD [address] [place] [address] [place] [phone] 04/29/2024 8:40 AM EST Office Visit Neurology [facility] [address] [facility] [place] [address] Aris Mohr MD [address] [place] [address] [address] 09/16/2024 11:20 AM EDT Office Visit Neurology [employer] [address] [facility] [place] [address] Jodee Austin MD [address] [place] [address] Pending Results Name Type Priority Associated Diagnoses Date /Time URINALYSIS, REFLEX TO CULTURE (NOT FOR NEUTROPENIC PATIENTS) Lab Routine Suprapubic pain 11/22/2023 11:52 AM EDT ZINC Lab Routine Severe protein-energy malnutrition (HCC) 11/22/2023 12:07 PM EDT MANGANESE, BLOOD Lab Routine Severe protein-energy malnutrition (HCC) 11/22/2023 12:07 PM EDT VITAMIN B1 (THIAMINE), BLOOD, LC/MS/MS Lab Routine Severe protein-energy malnutrition (HCC) 11/22/2023 12:07 PM EDT VITAMIN B6, PLASMA Lab Routine Severe protein-energy malnutrition (HCC) 11/22/2023 12:07 PM EDT VITAMIN C Lab Routine Severe protein-energy malnutrition (HCC) 11/22/2023 12:07 PM EDT VITAMIN K Lab Routine Severe protein-energy malnutrition (HCC) 11/22/2023 12:07 PM EDT VITAMIN A (RETINOL) Lab Routine Severe protein-energy malnutrition (HCC) 11/22/2023 12:07 PM EDT VITAMIN E (TOCOPHEROL) Lab Routine Severe protein-energy malnutrition (HCC) 11/22/2023 12:07 PM EDT HOMOCYSTEINE Lab Routine Severe protein-energy malnutrition (HCC) 11/22/2023 12:07 PM EDT METHYLMALONIC ACID, SERUM Lab Routine Severe protein-energy malnutrition (HCC) 11/22/2023 12:07 PM EDT Scheduled Orders Name Type Priority Associated Diagnoses Orde r Schedule URINALYSIS, REFLEX TO CULTURE Lab Routine Suprapubic pain Ordered: 11/22/2023 Health Maintenance Due Date Last Done Comments [...] 024, 08/23/2022, 09/20/2021 CKD HGB USE SMARTSET 31320 11/21/202411/21, 11/22/2023, 11/07/2023, Additional history exists CKD PHOS USE SMARTSET 73788 11/21/202410/25, 11/07/2023, 11/06/2023, Additional history exists DTaP,Tdap,and [...] this encounter Medical Devices Implanted Type Area Salesperson Meats Device Identifier Shelf Expiration Date Model / Serial / Lot Stent Axios 20mm - [id number] Implanted:Qty: 1 on 01/04/2021 by Leyda Garcia MD at OR [facility] N/A: Stomach [employer] : ENDOSCOPY 11/20/2021 [id number] / / [id number] documented as of this encounter Procedures Procedure Name Priority Date/Time Associated Diagnosis Comments DIFFERENTIAL, AUTOMATED Routine 11/22/2023 12:07 PM EDT Severe protein-energy malnutrition (HCC) 25-HYDROXY VITAMIN D Routine 11/22/2023 12:07 PM EDT Severe protein-energy malnutrition (HCC) HEMOGLOBIN A1C Routine 11/22/2023 12:07 PM EDT Severe protein-energy malnutrition (HCC) COMPREHENSIVE METABOLIC PANEL Routine 11/22/2023 12:07 PM EDT Severe protein-energy malnutrition (HCC) FOLIC ACID Routine 11/22/2023 12:07 PM EDT Severe protein-energy malnutrition (HCC) IRON SCREEN, INCLUDING TIBC Routine 11/22/2023 12:07 PM EDT Severe protein-energy malnutrition (HCC) CBC Routine 11/22/2023 12:07 PM EDT Severe protein-energy malnutrition (HCC) PT INR Routine 11/22/2023 12:07 PM EDT Spontaneous bruising PHOSPHORUS Routine 11/22/2023 12:07 PM EDT Severe protein-energy malnutrition (HCC) PTH Routine 11/22/2023 12:07 PM EDT Severe protein-energy malnutrition (HCC) CALCIUM, IONIZED Routine 11/22/2023 12:0 7 PM EDT Severe protein-energy malnutrition (HCC) CBC Routine 11/22/2023 12:07 PM EDT Severe protein-energy malnutrition (HCC) DIFFERENTIAL, TECHNOLOGIST REVIEW Routine 11/22/2023 12:07 PM EDT Severe protein-energy malnutrition (HCC) TRIGLYCERIDES Routine 11/22/2023 12:07 PM EDT Severe protein-energy malnutrition (HCC) PREALBUMIN Routine 11/22/2023 12:07 PM EDT Severe protein-energy malnutrition (HCC) MAGNESIUM Routine 11/22/2023 12:07 PM EDT Severe protein-energy malnutrition (HCC) FERRITIN Routine 11/22/2023 12:07 PM EDT Severe protein-energy malnutrition (HCC) VITAMIN B12 Routine 11/22/2023 12:07 PM EDT Severe protein-energy malnutrition (HCC) URINALYSIS, REFLEX TO CULTURE (CUP ONLY) Routine 11/22/2023 11:52 AM EDT Suprapubic pain documented in this encounter Results * DIFFERENTIAL, TECHNOLOGIST REVIEW (11/22/2023 12:07 PM EDT) Blood Venous blood specimen / Unknown Venipuncture / Unknown 11/22/2023 12:07 PM EDT 11/22/2023 12:07 PM EDT Mayra Crook [facility]ly [facility] LAB BLOOD ORDERAB LES [facility] [address] [place] [address] * (ABNORMAL) DIFFERENTIAL, AUTOMATED (11/22/2023 12:07 PM EDT) WBC 14.02(H) 4.00 - 10.80 K/uL 11/23/2023 12:07 AM EDT LAB[facility]ORY [facility] Neutrophils % 66.6 40.0 - 75.0 % 11/23/2023 12:07 AM EDT LAB[facility] Lymphocytes % 25.1 18.0 - 42.0 % 11/23/2023 12:07 AM EDT LAB[facility] Monocytes % 4.6 1.0 - 11.0 % 11/23/2023 12:07 AM EDT [facility] Eosinophils % 2.5 0.0 - 6.0 % 11/23/2023 12:07 AM EDT LAB[facility] Basophils % 0.9 0.0 - 2.0 % 11/23/2023 12:07 AM EDT LAB[facility] Immature Granulocytes % 0.3 0.0 - 2.0 % 11/23/2023 12:07 AM EDT LAB[facility]ORY [facility] Absolute Neutrophils 9.33(H) 1.80 - 7.70 K/uL 11/23/2023 12:07 AM EDT LAB[facility] Absolute Lymphocytes 3.52 1.00 - 4.80 K/ul 11/23/2023 12:07 AM EDT LAB[facility] Absolute Monocytes 0.65 0.00 - 1.10 K/uL 11/23/2023 12:07 AM EDT LAB[facility] Absolute Eosinophils 0.35 0.00 - 0.70 K/uL 11/23/2023 12:07 AM EDT LAB[facility] Absolute Basophils 0.13 0.00 - 0.20 K/uL 11/23/2023 12:07 AM EDT LAB[facility] Absolute Immature Granulocytes 0.04 0.00 - 0.20 K/uL 11/23/2023 12:07 AM EDT LAB[facility] Blood Venous blood specimen / Unknown Venipuncture / Unknown 11/22/2023 12:07 PM EDT 11/22/2023 12:07 PM EDT Mayra Crook [facility] LAB BLOOD ORDERAB LES Performing Organization Address City/State/[facility] Co de Phone Number LABORATORY [facility] [address], [place] [id number] * (ABNORMAL) CBC (11/22/2023 12:07 PM EDT) [facility] WBC 14.02(H) 4.00 - 10.80 K/uL 11/22/2023 11:03 PM EDT LAB[facility] RBC 3.49 3.85 - 5.15 M/uL 11/22/2023 11:03 PM EDT LAB[facility] HGB 10.4(L) 12.0 - 15.3 g/dL 11/22/2023 11:03 PM EDT LAB[facility] HCT 35.7(L) 36.0 - 45.2 % 11/22/2023 11:03 PM EDT LABORATORY [facility] MCV 102.3 81.5 - 97.5 fL 11/22/2023 11:03 PM EDT LABORATORY [facility] MCH 29.8 27.0 - 34.0 pg 11/22/2023 11:03 PM EDT LABORATORY [facility] MCHC 29.1 32.0 - 36.0 g/dL 11/22/2023 11:03 PM EDT LABORATORY [facility] RDW 18.0 11.5 - 15.5 % 11/22/2023 11:03 PM EDT LABORATORY [facility] PLT 374 140 - 400 K/uL 11/22/2023 11:03 PM EDT LABORATORY [facility] MPV 11.8 6.6 - 11.1 fL 11/22/2023 11:03 PM EDT LABORATORY [facility] nRBCs 0 <=0 /100 WBCs 11/22/2023 11:03 PM EDT LABORATORY [facility] Blood Venous blood specimen / Unknown Venipuncture / Unknown 11/22/2023 12:07 PM EDT 11/22/2023 12:07 PM EDT Mayra Crook [facility] LAB BLOOD ORDERAB LES LABORATORY [facility] [address] [place] [address] * PT INR (11/22/2023 12:07 PM EDT) [facility] Prothrombin Time 13.5 11.6 - 15.2 seconds 11/22/2023 11:36 PM EDT LABORATORY [facility] INR 1.0 0.8 - 1.2 11/22/2023 11:36 PM EDT LABORATORY [facility] Blood Venous blood specimen / Unknown Venipuncture / Unknown 11/22/2023 12:07 PM EDT 11/22/2023 12:07 PM EDT Narrative LABORATORY C - 11/22/2023 11:36 PM EDT Warfarin Therapy INR: 2.0-3.0 conventional anticoagulation INR: 2.5-3.5 high intensity anticoagulation Evelyn Forbes MD LAB BLOOD ORDERABLES Performing Organization Address [facility] Co de Phone Number LABORATORY [facility] [address] [place] [address] * TRIGLYCERIDES (11/22/2023 12:07 PM EDT) [facility] Triglycerides 143 <=174 mg/dL 11/23/2023 4:43 AM EDT LABORATORY [facility] Comment: Triglyceride Reference Ranges (mg/dL): <150 Acceptable 150-174 Borderline high 175-499 High >=500 Very high Blood Venous blood specimen / Unknown Venipuncture / Unknown 11/22/2023 12:07 PM EDT 11/22/2023 12:07 PM EDT Mayra A Ambreen [facility] LAB BLOOD ORDERAB LES Performing Organization Address [facility] Co de Phone Number LABORATORY [facility] [address] [place] [address] * VITAMIN B12 (11/22/2023 12:07 PM EDT) [facility] Vitamin B12 461 232 - 1,245 pg/mL 11/23/2023 5:24 AM EDT LABORATORY [facility] Blood Venous blood specimen / Unknown Venipuncture / Unknown 11/22/2023 12:07 PM EDT 11/22/2023 12:07 PM EDT Mayra Tucker Alexismyrondimitry Formerly [facility] LAB BLOOD ORDERAB LES Performing Organization Address [facility] Co de Phone Number LABORATORY [facility] [address] [place] [address] * HEMOGLOBIN A1C (11/22/2023 12:07 PM EDT) [facility] Hemoglobin A1C 5.3 4.0 - 5.6 % 11/23/2023 3:10 AM EDT LABORATORY [facility] Comment:The use of HbA1c to monitor glycemic status is based on normal hemoglobin and HbA composition. This test should not be used in patients with abnormal hemoglobin that affects the half life of the red blood cell or the in vivo glycation rates. Estimated Average Glucose 105 <126 mg/dL 11/23/2023 3:10 AM EDT LABORATORY [facility] Blood Venous blood specimen / Unknown Venipuncture / Unknown 11/22/2023 12:07 PM EDT 11/22/2023 12:07 PM EDT Mayra Matti [facility] LAB BLOOD ORDERAB LES Performing Organization Address [facility] Co de Phone Number LABORATORY [facility] [address] [place] [address] * FOLIC ACID (11/22/2023 12:07 PM EDT) Pathologist [facility] Folic Acid 6.9 >4.5 ng/mL 11/23/2023 5:24 AM EDT LABORATORY [facility] Blood Venous blood specimen / Unknown Venipuncture / Unknown 11/22/2023 12:07 PM EDT 11/22/2023 12:07 PM EDT Mayra Matti [facility] LAB BLOOD ORDERAB LES Performing Organization Address [facility] de Phone Number LABORATORY [facility] [address] [place] [address] * (ABNORMAL) PTH (11/22/2023 12:07 PM EDT) PTH 294(H) 15 - 65 pg/mL 11/23/2023 5:24 AM EDT LABORATORY [facility] Blood Venous blood specimen / Unknown Venipuncture / Unknown 11/22/2023 12:07 PM EDT 11/22/2023 12:07 PM EDT Mayra Matti [facility] LAB BLOOD ORDERAB LES Performing Organization Address [facility] de Phone Number LABORATORY [facility] [address] [place] [address] * PREALBUMIN (11/22/2023 12:07 PM EDT) Prealbumin 25 18 - 45 mg/dL 11/23/2023 4:43 AM EDT LABORATORY [facility] Blood Venous blood specimen / Unknown Venipuncture / Unknown 11/22/2023 12:07 PM EDT 11/22/2023 12:07 PM EDT Mayra Crook [facility] LAB BLOOD ORDERAB LES Performing Organization Address [facility]/ZIP Co de Phone Number LABORATORY [facility] [address] [place] [address] * 25-HYDROXY VITAMIN D (11/22/2023 12:07 PM EDT) 25-Hydroxy Vitamin D 23 >19 ng/mL 11/22/2023 11:15 PM EDT LABORATORY [facility] Blood Venous blood specimen / Unknown Venipuncture / Unknown 11/22/2023 12:07 PM EDT 11/22/2023 12:07 PM EDT Narrative LABORATORY [facility] - 11/22/2023 11:15 PM EDT Deficient: <20 ng/mL Insufficient: 20-29 ng/mL Recommended/Optimum:30-50 ng/mL Vitamin D intoxication is rare. If suspicious of Vitamin D toxicity, evaluation of serum Calcium and PTH is recommended. Mayra Crook [facility] LAB BLOOD ORDERAB LES Performing Organization Address [facility] Co de Phone Number LABORATORY [facility] [address] [place] [address] * IRON SCREEN, INCLUDING TIBC (11/22/2023 12:07 PM EDT) Iron 80 33 - 151 ug/dL 11/23/2023 4:43 AM EDT LABORATORY [facility] Iron Binding Capacity 265 250 - 425 ug/dL 11/23/2023 4:43 AM EDT LABORATORY [facility] Transferrin Saturation Percent 30 15 - 55 % 11/23/2023 4:43 AM EDT LABORATORY [facility] Blood Venous blood specimen / Unknown Venipuncture / Unknown 11/22/2023 12:07 PM EDT 11/22/2023 12:07 PM EDT Mayra Crook [facility] LAB BLOOD ORDERAB LES Performing Organization Address [facility] Co de Phone Number LABORATORY [facility] [address] [place] [address] * FERRITIN (11/22/2023 12:07 PM EDT) Ferritin 64 13 - 150 ng/mL 11/23/2023 5:24 AM EDT LABORATORY [facility] Comment:Postmenopausal women have higher ferritin levels than pre-menopausal women. The above reference interval is based on pre-menopausal women. Blood Venous blood specimen / Unknown Venipuncture / Unknown 11/22/2023 12:07 PM EDT 11/22/2023 12:07 PM EDT Mayra Matti [facility] LAB BLOOD ORDERAB LES Performing Organization Address [facility] Phone Number LABORATORY [facility] [address] [place] [address] * (ABNORMAL) CALCIUM, IONIZED (11/22/2023 12:07 PM EDT) Calcium, Ionized 1.33(H) 1.13 - 1.32 mmol/L 11/22/2023 10:52 PM EDT LABORATORY [facility] Comment:This test was develo ped and its performance characteristics dtermined by [employer]. It has not been cleared or approved by the [place] Food and Drug Administration Blood Venous blood specimen / Unknown Venipuncture / Unknown 11/22/2023 12:07 PM EDT 11/22/2023 12:07 PM EDT Mayra Matti [facility] LAB BLOOD ORDERAB LES Performing Organization Address [facility] de Phone Number LABORATORY [facility] [address] [place] [address] * (ABNORMAL) PHOSPHORUS (11/22/2023 12:07 PM EDT) Phosphorus 5.9(H) 2.5 - 4.8 mg/dL 11/23/2023 4:43 AM EDT LABORATORY [facility] Blood Venous blood specimen / Unknown Venipuncture / Unknown 11/22/2023 12:07 PM EDT 11/22/2023 12:07 PM EDT Mayra Matti [facility] LAB BLOOD ORDERAB LES Performing Organization Address [facility] Co de Phone Number LABORATORY [facility] [address] [place] [address] * MAGNESIUM (11/22/2023 12:07 PM EDT) Magnesium 2.2 1.5 - 2.6 mg/dL 11/23/2023 4:43 AM EDT LABORATORY C Blood Venous blood specimen / Unknown Venipuncture / Unknown 11/22/2023 12:07 PM EDT 11/22/2023 12:07 PM EDT Mayradann Gatesi Former[facility] LAB BLOOD ORDERAB LES Performing Organization Address [facility] Co de Phone Number LABORATORY [facility] [address] [place] [address] * (ABNORMAL) COMPREHENSIVE METABOLIC PANEL (11/22/2023 12:07 PM EDT) BUN 45(H) 6 - 20 mg/dL 11/23/2023 4:43 AM EDT LAB[facility]ATORY [facility] Creatinine 1.7(H) 0.5 - 1.0 mg/dL 11/23/2023 4:43 AM EDT LAB[facility]ATORY [facility] Estimated Glomerular Filtration Rate 34(L) >=60 mL/min 11/23/2023 4:43 AM EDT LAB[facility]ATORY [facility] Comment:eGFR is calculated b ased on the CKD-EPI 2020 equation Sodium 141 135 - 146 mmol/L 11/23/2023 4:43 AM EDT LAB[facility]ATORY [facility] Potassium 4.8 3.5 - 5.1 mmol/L 11/23/2023 4:43 AM EDT LAB[facility]ATORY [facility] Chloride 113(H) 98 - 107 mmol/L 11/23/2023 4:43 AM EDT LAB[facility]ORY [facility] CO2 11(L) 22 - 32 mmol/L 11/23/2023 4:43 AM EDT LAB[facility]ORY [facility] Anion Gap 17(H) 7 - 15 mmol/L 11/23/2023 4:43 AM EDT LAB[facility]ORY [facility] Glucose 83 70 - 120 mg/dL 11/23/2023 4:43 AM EDT LAB[facility]ORY [facility] Albumin 4.3 3.8 - 5.0 g/dL 11/23/2023 4:43 AM EDT LAB[facility]ORY [facility] AST 17 10 - 35 U/L 11/23/2023 4:43 AM EDT LAB[facility]ATORY [facility] Alkaline Phosphatase 196(H) 35 - 130 U/L 11/23/2023 4:43 AM EDT LAB[facility] Bilirubin, Total <0.2 <=1.2 mg/dL 11/23/2023 4:43 AM EDT LAB[facility] Calcium 8.6 8.4 - 10.2 mg/dL 11/23/2023 4:43 AM EDT LAB[facility] Protein 6.8 6.0 - 8.3 g/dL 11/23/2023 4:43 AM EDT LAB[facility]ATORY [facility] ALT 23 10 - 35 U/L 11/23/2023 4:43 AM EDT LABORATORY [facility] Blood Venous blood specimen / Unknown Venipuncture / Unknown 11/22/2023 12:07 PM EDT 11/22/2023 12:07 PM EDT Mayra Crook [facility] LAB BLOOD ORDERAB LES Performing Organization Address City/[facility] Co de Phone Number LABORATORY [facility] [address] [place] [address] * URINALYSIS, REFLEX TO CULTURE (CUP ONLY) (11/22/2023 11:52 AM EDT) Urinalysis, Reflex to Culture Specimen Specimen collected and received 11/22/2023 1:01 PM EDT LABORATORY [facility] Urine Urine specimen obtained by clean catch procedure / Unknown Non-blood Collection / Unknown 11/22/2023 11:52 AM EDT 11/22/2023 11:52 AM EDT Evelyn Forbes MD LAB URINE ORDERABLES LABORATORY [facility] [address] [place] [address] documented in this encounter Visit Diagnoses Diagnosis Suprapubic pain Abdominal pain, other specified site Severe protein-energy malnutrition (HCC) Other severe protein-calorie malnutrition Spontaneous bruising Spontaneous ecchymoses documented in this encounter Advance Directives Documents on File Type Date Recorded Patient Product Marketing Director Expl anation POLST 01/03/2022 [place] [facility]-SU[facility]AINING TREATMENT * No Code (Latest [...] Other - (no specific identity) Health Care Product Marketing Director (appointed verbally by patient or by statute hierarchy) [place]dy [place] Sibling Health Care Product Marketing Director (appointed verbally by patient or by statute hierarchy) Care Teams Back Shoe Operator Relationship Specialty Start Date End Date Evelyn Andrews MD [address] [place] [address] [place] [phone] PCP - General Family Medicine 05/04/18 documented as of this encounter
--- OUTSIDE RECORDS SUMMARY | 2023-12-07 18:01 | External Medical Summary | Summary of Care ---
Author Name Unknown Organization [facility] Address [address] [place] [address] Phone [phone] Care Team Providers Care Perforator Loader Name Role Phone Evelyn Andrews MD Primary Care Prov ider Reason for Visit * Reason Comments Outpatient Testing Encounter Details Date Type Department Care Team (Late st Contact Info) Description 11/22/2023 11:50 AM EDT Laboratory Laboratory [address] [place] [phone] [facility] [address] [place] [address] Suprapubic pain; Severe protein-energy malnutrition (HCC); Spontaneous bruising Allergies Active Allergy Reactions Criticality Noted Date Comments Amoxicillin Edema airway High 01/22/2003 Oxybutynin 03/25/2023 Mouth ulcers Sulfa Antibiotics Edema airway High 08/15/2006 documented as of this encounter (statuses as of 11/22/2023) Medications Medication Sig Dispensed Refills Start Date [...] FOR MIGRAINE. 10 Tablet 5 09/18/2023 Active Gqirbazmwr-XTBS-Akeio ine 50-325-40 MG Oral Tablet (Fioricet)Indications :Migraine [...] daily. 90 Patch 3 10/16/2023 Active Nystatin 080422 UNIT/GM External Cream APPLY TO AFFECTED AREA [...] as of this encounter (statuses as of 11/22/2023) Active Problems Problem Noted Date Diagnosed Date [...] as of this encounter (statuses as of 11/22/2023) Resolved Problems Problem Noted Date Diagnosed Date Resolved Date Old MS (myocardial infarction) 03/01/2023 03/01/2023 Atherosclerosis of [place] ronary artery without angina pectoris 02/08/2022 [...] malnutrition 09/28/2018 09/23/2021 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/2021 REGISTERED APPRAISER 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 02/06/2017 05/02/2018 REGISTERED APPRAISER 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 02/06/2017 07/09/2019 Iron deficiency anemia 06/28/201109/20 Overview: ICD-10 update of inactive term Iron deficiency anemia 06/28/201109/20 Overview: ICD-10 update of inactive term Iron deficiency anemia pat paulino to inadequate dietary iron intake 09/26/2008 3 Secondary hyperparathyroidism, non-renal 03/27/2007 10/24/2023 Infected postoperative seroma 06/02/2003 09/20/2012 PANNICULITIS, [facility] SITE 05/14/200311/2022 documented as of this encounter (statuses as of 11/22/2023) Immunizations Name Administration Dates Next Due COVID-19 mRNA, LNP-s, No Pre serve, 2-Dose Series ([employer]) 02/16/2021,11/25/2020,11/01/2020 COVID-19, MRNA-LNP, 23-24, P F, 30 MCG/0.3 mL, 12 YRS AND ABOVE, IM ([employer]) 04/10/2023 Covid-19, Mrna, Lnp-s, Pf, B ivalent, 30 Mcg, IM, 12 yrs and above ([employer]) 04/12/2022 Pneumococcal Conjugate Vacci ne, 20-valent ([id number]) 12/10/2021 Pneumococcal Polysaccharide PPV23 (Pneumovax) 07/21/2009 Seasonal [...] 10:45 AM EDT Nurse Only Hematology/Oncology Treatment, [place] [address] [place] [address] Nurse, Med 4 [address] [facility] [place] [address] 11/29/2023 5:00 PM EDT Telemedicine Psychiatry [facility] [address] [place] [phone] Alexis Serna MD [address] [place] [address] 12/04/2023 10:00 AM EDT Nurse Only Hematology/Oncology Treatment, [place] [address] [place] [address] Nurse, Med 4 [address] [place] [address] 12/04/2023 3:45 PM EDT Office Visit Urology, [facility] [address] [facility] [place] [address] Christopher Almonte MD 27 [facility] [address] [place] [address] 12/05/2023 10:20 AM EDT Telemedicine Nutrition & Weight Management, [place] [address] [place], [place] [id number] Vic Wilkerson DO [address] [place], [place] [id number] 12/13/2023 10:00 AM EDT Telemedicine Family Medicine [address] [phone] Evelyn Andrews MD [address] [place] [address] [place] [id number] 04/29/2024 8:40 AM EST Office Visit Neurology [facility] [address] [place] [address] Aris Mohr MD [address] [place] [address] [address] 09/16/2024 11:20 AM EDT [facility] [address] [facility] [place] [address] Jodee Austin MD [address] [place] [address] Pending Results Name Type Priority Associated Diagnoses Date /Time URINALYSIS, REFLEX TO CULTURE (NOT FOR NEUTROPENIC PATIENTS) Lab Routine Suprapubic pain 11/22/2023 11:52 AM EDT URINALYSIS, REFLEX TO CULTURE (CUP ONLY) Lab Routine Suprapubic pain 11/22/2023 11:52 AM EDT COMPREHENSIVE METABOLIC PANEL Lab Routine Severe protein-energy malnutrition (HCC) 11/22/2023 12:07 PM EDT MAGNESIUM Lab Routine Severe protein-energy malnutrition (HCC) 11/22/2023 12:07 PM EDT PHOSPHORUS Lab Routine Severe protein-energy malnutrition (HCC) 11/22/2023 12:07 PM EDT CALCIUM, IONIZED Lab Routine Severe protein-energy malnutrition (HCC) 11/22/2023 12:07 PM EDT ZINC Lab Routine Severe protein-energy malnutrition (HCC) 11/22/2023 12:07 PM EDT SELENIUM Lab Routine Severe protein-energy malnutrition (HCC) 11/22/2023 12:44 PM EDT CHROMIUM, SERUM Lab Routine Severe protein-energy malnutrition (HCC) 11/22/2023 12:43 PM EDT MANGANESE, BLOOD Lab Routine Severe protein-energy malnutrition (HCC) 11/22/2023 12:07 PM EDT CBC WITH WBC DIFFERENTIAL Lab Routine Severe protein-energy malnutrition (HCC) 11/22/2023 12:07 PM EDT FERRITIN Lab Routine Severe protein-energy malnutrition (HCC) 11/22/2023 12:07 PM EDT IRON SCREEN, INCLUDING TIBC Lab Routine Severe protein-energy malnutrition (HCC) 11/22/2023 12:07 PM EDT 25-HYDROXY VITAMIN D Lab Routine Severe protein-energy malnutrition (HCC) 11/22/2023 12:07 PM EDT PREALBUMIN Lab Routine Severe protein-energy malnutrition (HCC) 11/22/2023 12:07 PM EDT PTH Lab Routine Severe protein-energy malnutrition (HCC) 11/22/2023 12:07 PM EDT FOLIC ACID Lab Routine Severe protein-energy malnutrition (HCC) 11/22/2023 12:07 PM EDT HEMOGLOBIN A1C Lab Routine Severe protein-energy malnutrition (HCC) 11/22/2023 12:07 PM EDT VITAMIN B12 Lab Routine Severe protein-energy malnutrition (HCC) 11/22/2023 [...] protein-energy malnutrition (HCC) 11/22/2023 12:07 PM EDT TRIGLYCERIDES Lab Routine Severe protein-energy malnutrition (HCC) 11/22/2023 12:07 PM EDT PT INR Lab Routine Spontaneous bruising 11/22/2023 12:07 PM EDT CBC Lab Routine Severe protein-energy malnutrition (HCC) 11/22/2023 12:07 PM EDT DIFFERENTIAL, AUTOMATED Lab Routine Severe protein-energy malnutrition (HCC) 11/22/2023 [...] 11/24, 01/15/2007 Colorectal Cancer Screening 12/11/2023 GFR 05/09/2024 11/07/2023, 10/24, 11/05/2023, Additional history exists Albumin/Creatinine Ratio 08/23/2024 024, 08/23/2022, 09/20/2021 CKD HGB USE SMARTSET 99033 11/06/202411/06, 11/06/2023, 11/04/2023, Additional history exists CKD PHOS USE SMARTSET 45964 11/06/202410/24, 11/06/2023, 11/05/2023, Additional history exists DTaP,Tdap,and Td Vaccines (2 [...] this encounter Medical Devices Implanted Type Area Communication Center Operator Device Identifier Shelf Expiration Date Model / Serial / Lot Stent Axios 20mm - [id number] Implanted:Qty: 1 on 01/04/2021 by Leyda Garcia MD at OR [facility] N/A: Stomach [employer] : ENDOSCOPY 11/20/2021 [id number] / / [id number] documented as of this encounter Visit Diagnoses Diagnosis Suprapubic pain Abdominal pain, other specified site Severe protein-energy malnutrition (HCC) Other severe protein-calorie malnutrition Spontaneous bruising Spontaneous ecchymoses documented in this encounter Advance Directives Documents on File Type Date Recorded Patient Switchgear Repairer Expl anation POLST 01/03/2022 [place] OR [facility] FOR LIFE-SUSTAINING TREATMENT * No Code [...] Other - (no specific identity) Health Care Switchgear Repairer (appointed verbally by patient or by statute hierarchy) Rowdybrady [place] Sibling Health Care Switchgear Repairer (appointed verbally by patient or by statute hierarchy) Care Teams Perforator Loader Relationship Specialty Start Date End Date Evelyn Andrews MD [address] [place] [address] [place] [phone] PCP - General Family Medicine 05/04/18 documented as of this encounter
--- OUTSIDE RECORDS SUMMARY | 2023-12-07 18:01 | External Medical Summary | Summary of Care ---
Author Name Unknown Organization [facility] Address [address] [place] [address] Phone [phone] Care Team Providers Care Battery Assembler Plastic Name Role Phone Evelyn Andrews MD Primary Care Prov ider Reason for Visit * Reason Comments Outpatient Testing Encounter Details Date Type Department Care Team (Late st Contact Info) Description 11/22/2023 11:50 AM EDT Laboratory Laboratory [address] [place] [phone] [facility] [address] [place] [address] Suprapubic pain; Severe [...] FOR MIGRAINE. 10 Tablet 5 09/18/2023 Active Erqyypivnk-XDUP-Fivqk ine 50-325-40 MG Oral Tablet (Fioricet)Indications :Migraine [...] daily. 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 OPERATOR VERTICAL 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 02/06/2017 05/02/2018 BIAS CUTTING MACHINE OPERATOR VERTICAL 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 02/06/2017 07/09/2019 Iron deficiency anemia 06/28/201109/20 Overview: ICD-10 update of inactive term Iron deficiency anemia 06/28/201109/20 Overview: ICD-10 update of inactive term Iron deficiency anemia pat paulino to inadequate dietary iron intake 09/26/2008 3 Secondary hyperparathyroidism, non-renal 03/27/2007 10/24/2023 Infected postoperative seroma 06/02/2003 09/20/2012 PANNICULITIS, [facility] SITE 05/14/200311/2022 documented as of this encounter (statuses as of 11/22/2023) Immunizations Name Administration Dates Next Due COVID-19 mRNA, LNP-s, No Pre serve, 2-Dose Series ([employer]) 02/16/2021,11/25/2020,11/01/2020 COVID-19, MRNA-LNP, 23-24, P F, 30 MCG/0.3 mL, 12 YRS AND ABOVE, IM ([employer]Comirnat) 04/10/2023 Covid-19, Mrna, Lnp-s, Pf, B ivalent, 30 Mcg, IM, 12 yrs and above ([employer]) 04/12/2022 Pneumococcal Conjugate Vacci ne, 20-valent ([id number]) 12/10/2021 Pneumococcal Polysaccharide PPV23 (Pneumovax) 07/21/2009 Seasonal [...] 10:45 AM EDT Nurse Only Hematology/Oncology Treatment, [place] [address] [place] [address] Nurse, Med 4 200 [facility] [place] [address] 11/29/2023 5:00 PM EDT Telemedicine Psychiatry [facility] [address] [place] [phone] Alexis Serna MD [address] [place] [address] 12/04/2023 10:00 AM EDT Nurse Only Hematology/Oncology Treatment, [place] [address] [place] [address] Nurse, Med 4 200 [facility] [place] [address] 12/04/2023 3:45 PM EDT Office Visit Urology, [facility] [address] [facility] [place] [address] Christopher Almonte MD 27 [facility] [address] [place] [address] 12/05/2023 10:20 AM EDT Telemedicine Nutrition & Weight Management, [place] [address] [place], [place] [phone] Vic Wilkerson DO [address] [place], [place] [phone] 12/13/2023 10:00 AM EDT Telemedicine Family Medicine [address] [phone] Evelyn Andrews MD [address] [place] [address] [place] [phone] 04/29/2024 8:40 AM EST Office Visit Neurology [facility] [address] [facility] [place] [address] Aris Mohr MD [address] [place] [address] [address] 09/16/2024 11:20 AM EDT Office Visit Neurology [employer] [address] [facility] [place] [address] Jodee Austin MD [address] [place] [address] Pending Results Name Type Priority Associated Diagnoses [...] protein-energy malnutrition (HCC) 11/22/2023 12:07 PM EDT CHROMIUM, SERUM Lab Routine Severe [...] Cancer Screening 09/27/2014 Pap Smear 09/27/2014 09/28/2011, 07/0 11/2010, 07/07/2010, Additional history exists Depression, Most Recent Score >= 10 (will fire each visit until score < 10) 05/23/2023 05/22/2023 Colonoscopy 12/11/2023 12/10/2013, 11/24, 01/15/2007 Colorectal Cancer Screening 12/11/2023 GFR 05/09/2024 11/07/2023, 10/24, 11/05/2023, Additional history exists Albumin/Creatinine Ratio 08/23/2024 024, 08/23/2022, 09/20/2021 CKD HGB USE SMARTSET 43607 11/06/202411/06, 11/06/2023, 11/04/2023, Additional history exists CKD PHOS USE SMARTSET 02737 11/06/202410/24, 11/06/2023, 11/05/2023, Additional history exists DTaP,Tdap,and [...] this encounter Medical Devices Implanted Type Area Real Estate Office Supervisor Device Identifier Shelf Expiration Date Model / Serial / Lot Stent [employer] 20mm - [id number] Implanted:Qty: 1 on 01/04/2021 by Leyda Garica MD at OR [facility] N/A: Stomach [employer] : ENDOSCOPY 11/20/2021 [id number] / / [id number] documented as of this encounter Visit Diagnoses Diagnosis Suprapubic pain Abdominal pain, other specified site Severe protein-energy malnutrition (HCC) Other severe protein-calorie malnutrition Spontaneous bruising Spontaneous ecchymoses documented in this encounter Advance Directives Documents on File Type Date Recorded Patient Clinical Project Assistant Expl anation POLST 01/03/2022 [place] OR [facility] FOR LIFE-SUSTAINING TREATMENT * No Code [...] Other - (no specific identity) Health Care Clinical Project Assistant (appointed verbally by patient or by statute hierarchy) Rowdy [place]ogue Sibling Health Care Clinical Project Assistant (appointed verbally by patient or by statute hierarchy) Care Teams Battery Assembler Plastic Relationship Specialty Start Date End Date Evelyn Andrews MD [address] [place] [address] [place] [phone] PCP - General Family Medicine 05/04/18 documented as of this encounter
--- OUTSIDE RECORDS SUMMARY | 2023-12-07 18:01 | External Medical Summary | Summary of Care ---
Author Name Unknown Organization [facility] Address [address] [place] [address] Phone [phone] Care Team Providers Care Supply Service Worker Name Role Phone Evelyn Andrews MD Primary Care Prov ider Reason for Visit * Reason Onset Date Comments Follow Up Hospital Follow-Up 11/22/2023 Encounter Details Date Type Department Care Team (Late st Contact Info) Description 11/22/2023 10:20 AM EDT Office Visit Family Medicine [address] [address] Evelyn Andrews MD [address] [place] [address] [place] [address] Hospital discharge follow-up*; Failure to thrive in adult; Severe protein-energy malnutrition (HCC); Cachexia (HCC); Spontaneous bruising; Suprapubic pain; Bipolar disorder, current episode depressed, severe, unspecified whether psychotic features (HCC) Allergies Active Allergy Reactions Criticality Noted [...] Active Dicyclomine HCl 20 MG Oral Tablet (Bentyl)Indications: Nausea and vomiting,Epigastric pain TAKE 1 TABLET BY [...] Active SUMAtriptan Succinate 50 MG Oral Tablet (Imitrex)Indications :Migraine variant MAX OF 2 TABS PER ATTACK AND NO MORE THAN 3 X WEEKLY 10 Tablet 5 03/16/2023 Active ALPRAZolam 0.25 MG Oral Tablet (xaNAX)Indications:A nxiety Take 1 Tablet by mouth at bedtime as needed for Sleep. 30 Tablet 3 06/14/2023 Active guaiFENesin-Codeine 100-10 MG/5ML Oral Syrup (Robitussin AC)Indications:COVID -19 Take 5 mL by mouth every 4 hours as needed for Cough. 120 mL 06/28/2023 Active Omeprazole 20 MG Oral Capsule Delayed Release (PriLOSEC) TAKE 1 CAPSULE BY MOUTH EVERY DAY IN THE MORNING 90 Capsule 4 07/26/2023 Active Promethazine HCl 25 MG Oral Tablet (Phenergan)Indicatio ns:Nausea Take 1 Tablet by mouth every 8 hours as needed for Nausea. 30 Tablet 3 08/15/2023 Active Rizatriptan Benzoate 10 MG Oral Tablet (Maxalt)Indications: Migraine variant TAKE 1 TAB BY MOUTH DAILY NEEDED FOR MIGRAINE. 10 Tablet 5 09/18/2023 Active Gqgifvkmmd-QUQB-Lkwx eine 50-325-40 MG Oral Tablet (Fioricet)Indication s:Migraine variant TAKE ONE TABLET EVERY 6 HOURS NEEDED FOR PAIN 90 Tablet 1 09/19/2023 Active Pregabalin 25 MG Oral Capsule (Lyrica)Indications: Copper deficiency myeloneuropathy (HCC),Hereditary and idiopathic peripheral neuropathy Take 1 Capsule by mouth in the morning and 1 Capsule before bedtime. 60 Capsule 5 09/19/2023 Active Lidocaine 4 % External Patch (Aspercreme)Indicati ons:Myelopathy (HCC) Place 1 Patch over 12 hours topically on the skin daily. 90 Patch 3 10/16/2023 Active Nystatin 959006 UNIT/GM External Cream APPLY TO AFFECTED AREA TWICE A DAY 30 g 2 11/02/2023 Active Ondansetron 4 MG Oral Tablet Disintegrating (Zofran)Indications: Intractable vomiting with nausea PLACE 1 TABLET ON TONGUE EVERY 8 HOURS NEEDED FOR NAUSEA. 90 Tablet 1 11/02/2023 Active Mirtazapine 45 MG Oral Tablet (Remeron)Indications :Recurrent major depressive disorder, in partial remission (HCC) Take 1 Tablet by mouth at bedtime. 30 Tablet 3 11/03/2023 Active QUEtiapine Fumarate 50 MG Oral Tablet (SEROquel) Take 1 Tablet by mouth at bedtime. Active OLANZapine 5 MG Oral Tablet Disintegrating (zyPREXA zyDIS) Place 1 Tablet on tongue in the morning. 30 Tablet 5 11/13/2023 Active Diphenoxylate-Atropi ne 2.5-0.025 MG Oral Tablet (Lomotil)Indications :Migraine variant TAKE ONE TABLET BY MOUTH 4 TIMES DAILY NEEDED FOR DAIRRHEA 60 Tablet 11/17/2023 Active traMADol HCl 50 MG Oral Tablet (Ultram)Indications: Other idiopathic scoliosis, thoracic region,Chronic midline thoracic back pain Take 1 Tablet by mouth daily as needed for Pain, Severe. 30 Tablet 11/17/2023 Active busPIRone HCl 5 MG Oral Tablet (Buspar)Indications: Bipolar disorder, current episode depressed, severe, unspecified whether psychotic features (HCC) Take 1 Tablet by mouth in the morning and 1 Tablet at noon and 1 Tablet before bedtime. 90 Tablet 5 11/22/2023 Active busPIRone HCl 5 MG Oral Tablet (Buspar) Take 1 Tablet by mouth in the morning and 1 Tablet at noon and 1 Tablet before bedtime. 90 Tablet 10/10/2023 Discontinu ed(Refill) documented as of this encounter (statuses as [...] [place] (myocardial infarction) 03/01/2023 03/01/2023 Atherosclerosis of [place] co ronary artery without angina pectoris 02/08/2022 [...] malnutrition 09/28/2018 09/23/2021 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/2021 SUPERVISOR ROLL[employer] SHOP 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 02/06/2017 05/02/2018 SUPERVISOR ROLLER SHOP 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 02/06/2017 07/09/2019 Iron deficiency anemia 06/28/201109/20 Overview: ICD-10 update of inactive term Iron deficiency anemia 06/28/201109/20 Overview: ICD-10 update of inactive term Iron deficiency anemia secbarbie morrisony to inadequate dietary iron intake 09/26/2008 3 Secondary hyperparathyroidism, non-renal 03/27/2007 10/24/2023 Infected postoperative seroma 06/02/2003 09/20/2012 PANNICULITIS, [facility] SITE 05/14/2003 09/0 11/2022 documented as of this encounter (statuses as of 11/22/2023) Immunizations Name Administration Dates Next Due COVID-19 mRNA, LNP-s, No Pre serve, 2-Dose Series ([employer]) 02/16/2021,11/25/2020,11/01/2020 COVID-19, MRNA-LNP, 23-24, P F, 30 MCG/0.3 mL, 12 YRS AND ABOVE, IM ([facility] [place]-Comirnaty) 04/10/2023 Covid-19, Mrna, Lnp-s, Pf, B ivalent, 30 Mcg, IM, 12 yrs and above (Pfizer) 04/12/2022 Pneumococcal Conjugate Vacci ne, 20-valent ([id number]) 12/10/2021 Pneumococcal Polysaccharide PPV23 (Pneumovax) 07/21/2009 Seasonal [...] Sign Reading Time Taken Comments Blood Pressure 98/60 11/22/2023 10:24 AM EDT Pulse 106 11/22/2023 10:24 AM EDT Temperature 35.6 C (96.1 F) 11/22/2023 10:24 AM E DT Respiratory Rate - - Oxygen Saturation 97% 11/22/2023 10:24 AM EDT Inhaled Oxygen Concentration - - Weight 38.6 kg (85 lb) 11/22/2023 10:24 AM EDT Height - - Body Mass Index 17.77 11/03/2023 5:00 PM EDT documented in this [...] as of this encounter Progress Notes * Evelyn Andrews MD - 11/22/2023 11:12 AM EDT Subjective Chandrika Hogue is a 58 year old female. Chief Complaint Patient presents with Follow Up Hospital discharge follow up. Patient was admitted to [facility]. Date of discharge was 11/07/23. Dischargesummary was received and reveiwed. TODAY: Malnutrition. Patricia did decide to restart TPN and was readmitted to [facility] to re- initiate TPN. Was successful and she has been receiving home TPN 4 days per week for the past 2 weeks since hospital discharge. Has lost 4 pounds in the past 2 weeks. Has been having diarrhea/ soft stools. Feeling weak and off balance. Easy bruising. Fall risk. Walker has been ordered and ready for picker box operator. She has not had time to pick it up she states. Using cane. Admits she has had a few falls but states she is too busy working to picker box operator the walker. Mental health. Has not yet connected with Andriy Flaherty ( therapist); intends to initiate care with them. Preventive: She defers mammo/ pap until health improves. PMH: Patient Active Problem List Diagnosis IRON DEF [...] of urine Acute pain of right shoulder Current Outpatient Medications Medication Sig Dispense Refill [...] DAILY NEEDED FOR MIGRAINE. 10 Tablet 5 Vddrtztnpo-VJIJ-Eejhupdw 50-325-40 MG Oral Tablet (Fioricet) TAKE ONE TABLET EVERY 6 HOURS NEEDED FOR PAIN 90 Tablet 1 Pregabalin 25 MG Oral Capsule (Lyrica) Take 1 Capsule by mouth in the morning and 1 Capsule before bedtime. 60 Capsule 5 Lidocaine 4 % External Patch (Aspercreme) Place 1 Patch over 12 hours topically on the skin daily. 90 Patch 3 Nystatin 937266 UNIT/GM External Cream APPLY TO AFFECTED AREA [...] as needed for Pain, Severe. 30Tablet 0 No current facility-administered medications for this visit. Review of patient's allergies indicates: Allergen Reactions Amoxicillin Edema airway Sulfa Antibiotics Edema airway Oxybutynin Mouth ulcers Objective BP 98/60 | Pulse 106 | Temp 35.6 C (96.1 F) (Tympanic) | Wt 38.6 kg (85 lb) | LMP 04/05/2007 | SpO2 97% | BMI 17.77 kg/m | BSA 1.26 m Awake, alert, cachectic Bruise to right forearm and left eye. Denies abuse/ trauma/ but has had falls. CV RRR Lungs CTAB ASSESSMENT/PLAN: There are no diagnoses linked to this encounter. She promises to establish care with psychology and to picker box operator her walker To get nutrition labs today Added PT/INR due to easy bruising Follow up closely. Check-out note: Needs Apt to Follow up with Dr. Rock Mobley MD documented in this encounter Nursing Notes * Serene Vargas LPN - 11/22/2023 10:27 AM EDT Chief Complaint Patient presents with Follow Up TPN 4 x a wk at home Wt today 85 Noticing Diarrhea after starting TPN Right side abd Pain only when Palpitated or Over eat Noticing increase bruising Off balance last 2 days and increase falling Using cane and Rolator walker No follow up DrToshaStill Scheduled at this time The patient has been properly identified by confirmation of name and date of . documented in this encounter Plan of Treatment Upcoming Encounters Date Type Department Care Team (Late st Contact Info) Description 11/27/2023 10:45 AM EDT Nurse Only Hematology/Oncology Treatment, [place] [address] [place] [phone] Nurse, Med 4 [address] [facility] [place] [address] 11/29/2023 5:00 PM EDT Telemedicine Psychiatry [facility] [place] [address] [place] [address] Alexis Serna MD [address] [place] [address] 12/04/2023 10:00 AM EDT Nurse Only Hematology/Oncology Treatment, [place] [address] [place] [phone] Nurse, Med 4 [address] [facility] [place] [address] 12/04/2023 3:45 PM EDT Office Visit Urology, [facility] [address] [place] [place] [address] Christopher Almonte MD 27 [facility] [address] [place] [address] 12/05/2023 10:20 AM EDT Telemedicine Nutrition & Weight Management, [place] [address] [place] [address] Vic Wilkerson DO [address] [place] [address] 12/13/2023 10:00 AM EDT Telemedicine [address] [place] [address] Evelyn Andrews MD [address] [place] [address] [place] [address] 04/29/2024 8:40 AM EST Office Visit Neurology [facility] [address] [place] [address] Aris Mohr MD [address] [place] [address] 09/16/2024 11:20 AM EDT Office Visit Neurology [facility] [place] [address] [place] [address] Jodee Austin MD [address] [place] [address] Pending Results Name Type Priority Associated Diagnoses Date /Time PT INR Lab Routine Spontaneous bruising 11/22/2023 12:07 PM EDT URINALYSIS, REFLEX TO CULTURE (NOT FOR NEUTROPENIC PATIENTS) Lab Routine Suprapubic pain 11/22/2023 11:52 AM EDT Scheduled Orders Name Type Priority Associated Diagnoses Orde r Schedule PT INR Lab Routine Spontaneous bruising Expected: 11/22/2023 (Approximate), Expires: 11/21/2024 URINALYSIS, REFLEX TO CULTURE (NOT FOR NEUTROPENIC PATIENTS) Lab Routine Suprapubic pain Expected: 11/22/2023, Expires: 11/21/2024 Health Maintenance Due Date Last Done Comments [...] 024, 08/23/2022, 09/20/2021 CKD HGB USE SMARTSET 45579 11/06/202411/06, 11/06/2023, 11/04/2023, Additional history exists CKD PHOS USE SMARTSET 12380 11/06/202410/24, 11/06/2023, 11/05/2023, Additional history exists DTaP,Tdap,and [...] this encounter Medical Devices Implanted Type Area Glass Scullion Device Identifier Shelf Expiration Date Model / Serial / Lot Stent Axi[employer] 20mm - [id number] Implanted:Qty: 1 on 01/04/2021 by Leyda Garcia MD at OR [facility] N/A: Stomach [employer] : ENDOSCOPY 11/20/2021 [id number] / / [id number] documented as of this encounter Visit Diagnoses Diagnosis Hospital discharge follow-up- Primary Other follow-up examination Failure to thrive in adult Adult failure to thrive Severe protein-energy malnutrition (HCC) Other severe protein-calorie malnutrition Cachexia (HCC) Cachexia Spontaneous bruising Spontaneous ecchymoses Suprapubic pain Abdominal pain, other specified site Bipolar disorder, current episode depressed, severe, unspecified whether psychotic features (HCC) documented in this encounter Advance Directives Documents on File Type Date Recorded Patient Appraisal Manager Expl anation POLST 01/03/2022 [place] OR [facility] FOR LIFE-SUSTAINING TREATMENT * No Code [...] Other - (no specific identity) Health Care Appraisal Manager (appointed verbally by patient or by statute hierarchy) Rowdy Hogue Sibling Health Care Appraisal Manager (appointed verbally by patient or by statute hierarchy) Care Teams Supply Service Worker Relationship Specialty Start Date End Date Evelyn Andrews MD [address] [place] [address] [place] [address] PCP - General Family Medicine 05/04/18 documented as of this encounter"
--- OUTSIDE RECORDS SUMMARY | 2023-12-07 18:01 | External Medical Summary | Summary of Care ---
Author Name Unknown Organization [facility] Address [address] [place] [address] Phone [phone] Care Team Providers Care Technology Sales Specialist Name Role Phone Evelyn Andrews MD Primary Care Prov ider Reason for Visit * Reason Comments Medication Management Encounter Details Date Type Department Care Team (Late st Contact Info) Description 11/24/2023 Documentation Home Infusion, [place] [address] [place] [address] [address] Severe protein-energy malnutrition (HCC)* Allergies Active Allergy Reactions Criticality Noted Date [...] FOR MIGRAINE. 10 Tablet 5 09/18/2023 Active Fejtqrlujr-SWDB-Iokcg ine 50-325-40 MG Oral Tablet (Fioricet)Indications :Migraine [...] daily. 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 02/06/2017 05/02/2018 LOZENGE DOUGH MIXER 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 02/06/2017 07/09/2019 Iron deficiency anemia 06/28/201109/20 Overview: ICD-10 update of inactive term Iron deficiency anemia 06/28/201109/20 Overview: ICD-10 update of inactive term Iron deficiency anemia pat paulino to inadequate dietary iron intake 09/26/2008 3 Secondary hyperparathyroidism, non-renal 03/27/2007 10/24/2023 Infected postoperative seroma 06/02/2003 09/20/2012 PANNICULITIS, [facility] SITE 05/14/200311/2022 documented as of this encounter (statuses as of 11/24/2023) Immunizations Name Administration Dates Next Due COVID-19 mRNA, LNP-s, No Pre serve, 2-Dose Series ([employer] 02/16/2021,11/25/2020,11/01/2020 COVID-19, MRNA-LNP, 23-24, P F, 30 MCG/0.3 mL, 12 YRS AND ABOVE, IM ([facility] 04/10/2023 Covid-19, Mrna, Lnp-s, Pf, B ivalent, 30 Mcg, IM, 12 yrs and above (Pfizer) 04/12/2022 Pneumococcal Conjugate Vacci ne, 20-valent ([id number]) 12/10/2021 Pneumococcal Polysaccharide PPV23 (Pneumovax) 07/21/2009 Seasonal [...] of this encounter Progress Notes * Mayra Crook [facility] - 11/24/2023 11:32 AM EDT [facility] Adult TPN Documentation [...] TPN for severe malnutrition. Discussed with Dr. Wilkerson: Continue TPN with decreased Amino Acids 60 Grams/Day. As per collaborative practice agreement remove Sodium Phosphate, change Na Acetate to 97 mEq/per Day, and decrease Ca Gluconate to 2 mEq.Day. Sending 11/24/23 to c over TPN through 11/30/23. Next weekly labs 11/27/23: CMP, Magnesium, Phosphorus, and ionized Calcium (Also, added on chromium, selenium, and lipase since missed on comprehensive lab draw). Next nutrition appointment: TBD Mayra Crook RPh 11/24/2023 11:32 AM documented in this encounter Plan of Treatment Upcoming Encounters Date Type Department Care Team (Late st Contact Info) Description 11/27/2023 10:45 AM EDT Nurse Only Hematology/Oncology Treatment, [place] [address] [place] [address] Nurse, Med 4 [address] [place] [address] 11/29/2023 5:00 PM EDT Telemedicine Psychiatry [place] [facility] [address] [place] [address] Alexis Serna MD [address] [place] [address] 12/04/2023 10:00 AM EDT Nurse Only Hematology/Oncology Treatment, [place] [address] [place] [address] Nurse, Med 4 200 [facility] [place], [place] [address] 12/04/2023 3:45 PM EDT Office Visit Urology, [facility] [address] [place] [address] Christopher Almonte MD 27 [facility] [address] [place] [address] 12/05/2023 10:20 AM EDT Telemedicine Nutrition & Weight Management, [place] [address] [place] [address] Vic Wilkerson DO [address], [place] [phone] 12/13/2023 10:00 AM EDT Telemedicine Family Medicine [address] [place] [address] Evelyn Andrews MD [address] [place] [address] [place] [address] 04/29/2024 8:40 AM EST Office Visit Neurology [facility] [address] [place] [address] Aris Mohr MD [address] [facility] [place] [address] 09/16/2024 11:20 AM EDT Office Visit Neurology [facility] [address] [facility] [place] [address] Jodee Austin MD [address] [place] [address] Scheduled Orders Name Type Priority Associated Diagnoses Orde r Schedule LIPASE Lab Routine Severe protein-energy malnutrition (HCC) Every 6 Months for 1 Occurrences starting 11/24/2023 until 11/23/2024 CHROMIUM, SERUM Lab Routine Severe protein-energy malnutrition (HCC) Every 6 Months for 1 Occurrences starting 11/24/2023 until 11/23/2024 SELENIUM Lab Routine Severe protein-energy malnutrition (HCC) Every 6 Months for 1 Occurrences starting 11/24/2023 until 11/23/2024 Health Maintenance Due Date Last Done Comments [...] 024, 08/23/2022, 09/20/2021 CKD HGB USE SMARTSET 72566 11/21/202411/21, 11/22/2023, 11/07/2023, Additional history exists CKD PHOS USE SMARTSET 56415 11/21/202410/25, 11/07/2023, 11/06/2023, Additional history exists DTaP,Tdap,and [...] this encounter Medical Devices Implanted Type Area Inpatient Pharmacist Device Identifier Shelf Expiration Date Model / Serial / Lot Stent [employer] 20mm - [id number] Implanted:Qty: 1 on 01/04/2021 by Leyda Garcia MD at OR [facility] N/A: Stomach [employer] : ENDOSCOPY 11/20/2021 [id number] / / [id number] documented as of this encounter Visit Diagnoses Diagnosis Severe protein-energy malnutrition (HCC)- Primary Other severe protein-calorie malnutrition documented in this encounter Advance Directives Documents on File Type Date Recorded Patient Excel Analyst Expl anation POLST 01/03/2022 [place] OR [facility] FOR LIFE-SUSTAINING TREATMENT * No Code [...] Other - (no specific identity) Health Care Excel Analyst (appointed verbally by patient or by statute hierarchy) Rowdy Kraus Health Care Excel Analyst (appointed verbally by patient or by statute hierarchy) Care Teams Technology Sales Specialist Relationship Specialty Start Date End Date Evelyn Andrews MD [address] [place] [address] [place] [address] PCP - General Family Medicine 05/04/18 documented as of this encounter
--- OUTSIDE RECORDS SUMMARY | 2023-12-07 18:01 | External Medical Summary | Summary of Care ---
Author Name Unknown Organization [facility] Address [address] [place] [address] Phone [phone] Care Team Providers Care Paint Tester Name Role Phone Evelyn Andrews MD Primary Care Prov ider Reason for Visit * Reason Comments Medication Management Encounter Details Date Type Department Care Team (Late st Contact Info) Description 11/24/2023 Documentation Home Infusion, [place] [address] [place] [address] [address] Severe protein-energy malnutrition (HCC)* Allergies Active Allergy [...] FOR MIGRAINE. 10 Tablet 5 09/18/2023 Active Nwyxclznfh-QTUG-Faewu ine 50-325-40 MG Oral Tablet (Fioricet)Indications :Migraine [...] daily. 90 Patch 3 10/16/2023 Active Nystatin 408701 UNIT/GM External Cream APPLY TO AFFECTED AREA [...] [place] (myocardial infarction) 03/01/2023 03/01/2023 Atherosclerosis of [place] ronary artery without angina pectoris 02/08/2022 [...] malnutrition 09/28/2018 09/23/2021 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/2021 FUR MIXER 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 02/06/2017 05/02/2018 FUR MIXER 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 02/06/2017 07/09/2019 Iron deficiency anemia 06/28/201109/20 Overview: ICD-10 update of inactive term Iron deficiency anemia 06/28/201109/20 Overview: ICD-10 update of inactive term Iron deficiency anemia pat paulino to inadequate dietary iron intake 09/26/2008 3 Secondary hyperparathyroidism, non-renal 03/27/2007 10/24/2023 Infected postoperative seroma 06/02/2003 09/20/2012 PANNICULITIS, [facility] SITE 05/14/200311/2022 documented as of this encounter (statuses as of 11/24/2023) Immunizations Name Administration Dates Next Due COVID-19 mRNA, LNP-s, No Pre serve, 2-Dose Series ([employer]) 02/16/2021,11/25/2020,11/01/2020 COVID-19, MRNA-LNP, 23-24, P F, 30 MCG/0.3 mL, 12 YRS AND ABOVE, IM ([facility]) 04/10/2023 Covid-19, Mrna, Lnp-s, Pf, B ivalent, 30 Mcg, IM, 12 yrs and above (Pfizer) 04/12/2022 Pneumococcal Conjugate Vacci ne, 20-valent ([id number]) 12/10/2021 Pneumococcal Polysaccharide PPV23 (Pneumovax) 07/21/2009 Seasonal [...] this encounter Progress Notes * Mayra Crook [facility] - 11/24/2023 11:32 AM EDT [facility]fusion Pharm[facility] Adult TPN Documentation [...] 10:45 AM EDT Nurse Only Hematology/Oncology Treatment, [place] [address] [place] [address] Nurse, Med 4 200 [facility] [place] [address] 11/29/2023 5:00 PM EDT Telemedicine Psychiatry [place] [facility] [address] [place] [address] Alexis Serna MD [address] [place] [address] 12/04/2023 10:00 AM EDT Nurse Only Hematology/Oncology Treatment, [place] [address] [place] [address] Nurse, Med 4 200 [facility] [place], [place] [phone] 12/04/2023 3:45 PM EDT Office Visit Urology, [facility] [address] [facility] [place] [address] Christopher Almonte MD 27 [facility] [address] [place] [address] 12/05/2023 10:20 AM EDT Telemedicine Nutrition & Weight Management, [place] [address] [place] [address] Vic Wilkerson DO [address] [place], [place] [phone] 12/13/2023 10:00 AM EDT Telemedicine Family Medicine [address] [place] [address] Evelyn Andrews MD [address] [place] [address] [place] [address] 04/29/2024 8:40 AM EST Office Visit Neurology [facility] 200 [facility] [address] Aris Mohr MD 200 [facility] [place] [address] 09/16/2024 11:20 AM EDT Office Visit Neurology [facility] 200 [facility] [place] [address] Jodee Austin MD [address] [place] [address] Scheduled Orders Name Type Priority Associated Diagnoses [...] 024, 08/23/2022, 09/20/2021 CKD HGB USE SMARTSET 48627 11/21/202411/21, 11/22/2023, 11/07/2023, Additional history exists CKD PHOS USE SMARTSET 33005 11/21/202410/25, 11/07/2023, 11/06/2023, Additional history exists DTaP,Tdap,and [...] this encounter Medical Devices Implanted Type Area Skills Instructor Device Identifier Shelf Expiration Date Model / Serial / Lot Stent Axios 20mm - [id number] Implanted:Qty: 1 on 01/04/2021 by Leyda Garcia MD at OR [facility] N/A: Stomach [employer] : ENDOSCOPY 11/20/2021 [id number] / / [id number] documented as of this encounter Visit Diagnoses Diagnosis Severe protein-energy malnutrition (HCC)- Primary Other severe protein-calorie malnutrition documented in this encounter Advance Directives Documents on File Type Date Recorded Patient Foreign Agent Expl anation POLST 01/03/2022 [place] OR [facility] FOR LIFE-SUSTAINING TREATMENT * No [...] Other - (no specific identity) Health Care Foreign Agent (appointed verbally by patient or by statute hierarchy) Rowdy Kraus Health Care Foreign Agent (appointed verbally by patient or by statute hierarchy) Care Teams Paint Tester Relationship Specialty Start Date End Date Evelyn Andrews MD [address] [place] [address] [place] [address] PCP - General Family Medicine 05/04/18 documented as of this encounter
--- OUTSIDE RECORDS SUMMARY | 2023-12-07 18:02 | External Medical Summary ---
Author Name Unknown Address Unknown Organization K01:[facility] [place] [facility] [address] [facility] [place] [address] Laboratory Report Ordering Provider Test Date Status TONY RAMIREZ 11/22/2023 12:07:35 Final Observation Date Value Abnormality Reference (Units ) Status WBC, Total 11/22/2023 12:07:35 14.02 Above high normal 4.00-10.80 (K/uL) Final RBC 11/22/2023 12:07:35 3.49 3.85-5.15 (M/uL) Final Hemoglobin 11/22/2023 12:07:35 10.4 Below low normal 12.0-15.3 (g/dL) Final HCT 11/22/2023 12:07:35 35.7 Below low normal 36.0-45.2 (%) Final MCV 11/22/2023 12:07:35 102.3 81.5-97.5 (fL) Final MCH 11/22/2023 12:07:35 29.8 27.0-34.0 (pg) Final MCHC 11/22/2023 12:07:35 29.1 32.0-36.0 (g/dL) Final RDW 11/22/2023 12:07:35 18.0 11.5-15.5 (%) Final Platelets 11/22/2023 12:07:35 374 140-400 (K/uL) Final MPV 11/22/2023 12:07:35 11.8 6.6-11.1 (fL) Final Nucleated erythrocytes/100 leukocytes [Ratio] in Blood by Automated count 11/22/2023 12:07:35 0 <=0 (/100 WBCs) Final Performing Location [facility] [place] [address] [place] [address]
--- OUTSIDE RECORDS SUMMARY | 2023-12-07 18:02 | External Medical Summary ---
Author Name Unknown Address Unknown Organization : Laboratory Report Ordering Provider Test Date Status TONY RAMIREZ 11/22/2023 12:07:35 Final Observation Date Value Abnormality Reference (Units ) Status Pyridoxal phosphate [Mass/volume] in Serum or Plasma 11/22/2023 12:07:35 3.2 2.1-21.7 (ng/mL) Final Vitamin supplementation with in 24 hours prior to
blood draw may affect the accuracy of the results.
This test was developed and its analytical performance
characteristics have been determined by [facility] [place], [place]. It has
not been cleared or approved by the U.S. Food and Drug
Administration. This assay has been validated pursuant
to the CLIA regulations and is used for clinical
purposes.

Test Performed at:
[facility] [place]
[address] [facility]
[place], [place]
Armando Chanel M.D., Ph.D.,Director of Laboratories Performing Location
--- OUTSIDE RECORDS SUMMARY | 2023-12-07 18:02 | External Medical Summary ---
Author Name Unknown Address Unknown Organization K01:LABORATORY [facility] - [address] [place] [address] Laboratory Report Ordering Provider Test Date Status TONY RAMIREZ 11/22/2023 12:07:35 Final Observation Date Value Abnormality Reference (Units ) Status Prealbumin 11/22/2023 12:07:35 25 18-45 (mg /dL) Final Performing Location [facility] - [address] [place] [address]
--- OUTSIDE RECORDS SUMMARY | 2023-12-07 18:02 | External Medical Summary ---
Author Name Unknown Address Unknown Organization K01:[facility]ORY [facility] [place] [address] [place] [address] Laboratory Report Ordering Provider Test Date Status ASHLEY,TONY 11/22/2023 12:07:35 Final Observation Date Value Abnormality Reference (Units ) Status Ferritin 11/22/2023 12:07:35 64 13-150 (ng /mL) Final Postmenopausal women have hi gher ferritin levels than pre-menopausal women. The above reference interval is based on pre-menopausal women. Performing Location LAB[facility]ORY [facility] - [address] [place] [address]
--- OUTSIDE RECORDS SUMMARY | 2023-12-07 18:02 | External Medical Summary ---
Author Name Unknown Address Unknown Organization : Laboratory Report Ordering Provider Test Date Status TAMY PATTERSON 11/22/2023 12:07:35 Final Observation Date Value Abnormality Reference (Units ) Status Copper 11/22/2023 12:07:35 109 70-175 (mc g/dL) Final This test was developed and its analytical performance
characteristics have been determined by [facility]
[place] It has
not been cleared or approved by the U.S. Food and Drug
Administration. This assay has been validated pursuant
to the CLIA regulations and is used for clinical
purposes.

Test Performed at:
[facility]
[address] [facility]
[place] [address]
Armando Chanel M.D., Ph.D.,Director of Laboratories Performing Location
--- OUTSIDE RECORDS SUMMARY | 2023-12-07 18:02 | External Medical Summary ---
Author Name Unknown Address Unknown Organization : Laboratory Report Ordering Provider Test Date Status TONY RAMIREZ 11/22/2023 12:07:35 Final Observation Date Value Abnormality Reference (Units ) Status Vitamin A, level 11/22/2023 12:07:35 45 38- 98 (mcg/dL) Final Vitamin supplementation with in 24 hours prior to
blood draw may affect the accuracy of the results.
This test was developed and its analytical performance
characteristics have been determined by [facility] [place], [place] It has
not been cleared or approved by the U.S. Food and Drug
Administration. This assay has been validated pursuant
to the CLIA regulations and is used for clinical
purposes.

Test Performed at:
[facility]
[address] [facility]
[place] [address]
Armando Chanel M.D., Ph.D.,Director of Laboratories Performing Location
--- OUTSIDE RECORDS SUMMARY | 2023-12-07 18:02 | External Medical Summary ---
Author Name Unknown Address Unknown Organization : Laboratory Report Ordering Provider Test Date Status TONY RAMIREZ 11/22/2023 12:07:35 Final Observation Date Value Abnormality Reference (Units ) Status Vitamin K-1, level 11/22/2023 12:07:35 137 1 30-1500 (pg/mL) Final This test was developed and its analytical performance
characteristics have been determined by [employer] [place], [place]. It has
not been cleared or approved by the U.S. Food and Drug
Administration. This assay has been validated pursuant
to the CLIA regulations and is used for clinical
purposes.

Test Performed at:
[facility]
[address] [facility]
[place] [address]
Armando Chanel M.D., Ph.D.,Director of Laboratories Performing Location
--- OUTSIDE RECORDS SUMMARY | 2023-12-07 18:02 | External Medical Summary ---
Author Name Unknown Address Unknown Organization K01:LABORATORY [facility] [place] [address] [place] [address] Laboratory Report Ordering Provider Test Date Status TONY RAMIREZ 11/22/2023 12:07:35 Final Deficient: <20 ng/mL
Ins ufficient: 20-29 ng/mL
Recommended/Optimum:30-50 ng/mL

Vitamin D intoxication is rare. If suspicious of Vitamin D toxicity, evaluation of serum Calcium and PTH is recommended. Observation Date Value Abnormality Reference (Units ) Status 25-OH Vitamin D total 11/22/2023 12:07:35 23 >19 (ng/mL) Final Performing Location LABORATORY [facility] - [address] [place] [address]
--- OUTSIDE RECORDS SUMMARY | 2023-12-07 18:02 | External Medical Summary | Summary of Care ---
Author Name Unknown Organization [facility] Address [address] [place] [address] Phone [phone] Care Team Providers Care Glass Sagger Name Role Phone Evelyn Andrews MD Primary Care Prov ider Reason for Visit * Reason Comments Outpatient Testing Encounter Details Date Type Department Care Team (Late st Contact Info) Description 11/22/2023 11:50 AM EDT Laboratory Laboratory [address] [place] [address] [facility] [address] [place] [address] Suprapubic pain; Severe [...] FOR MIGRAINE. 10 Tablet 5 09/18/2023 Active Meadjdmggt-LHDH-Dbykv ine 50-325-40 MG Oral Tablet (Fioricet)Indications :Migraine [...] daily. 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/2021 WINDOWS VMWARE ENGINEER 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 02/06/2017 05/02/2018 WINDOWS VMWARE ENGINEER 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 02/06/2017 07/09/2019 Iron deficiency anemia 06/28/201109/20 [...] mRNA, LNP-s, No Pre serve, 2-Dose Series ([employer]) 02/16/2021,11/25/2020,11/01/2020 COVID-19, MRNA-LNP, 23-24, P F, 30 MCG/0.3 mL, 12 YRS AND ABOVE, IM ([employer]) 04/10/2023 Covid-19, Mrna, Lnp-s, Pf, B ivalent, 30 Mcg, IM, 12 yrs and above ([employer]) 04/12/2022 Pneumococcal Conjugate Vacci ne, 20-valent ([id number]) 12/10/2021 Pneumococcal Polysaccharide PPV23 (Pneumovax) 07/21/2009 Seasonal [...] 10:45 AM EDT Nurse Only Hematology/Oncology Treatment, [place] [address] [place] [address] Nurse, Med [address] [facility] [place] [address] 11/29/2023 5:00 PM EDT Telemedicine Psychiatry [facility] [address] [place] [phone] Alexis Serna MD [address] [place] [address] 12/04/2023 10:00 AM EDT Nurse Only Hematology/Oncology Treatment, [place] [address] [place] [address] Nurse, Med [address] [facility] [place] [address] 12/04/2023 3:45 PM EDT Office Visit Urology, [facility] [address] [facility] [place] [address] Christopher Almonte MD 27 [facility] [address] [place] [address] 12/05/2023 10:20 AM EDT Telemedicine Nutrition & Weight Management, [place] [address] [place], [place] [phone] Vic Wilkerson DO [address] [place], [place] [phone] 12/13/2023 10:00 AM EDT Telemedicine Family Medicine [address] [phone] Evelyn Andrews MD [address] [place] [address] [place] [phone] 04/29/2024 8:40 AM EST Office Visit Neurology [facility] [address] [facility] [place] [address] Aris Mohr MD [address] [place] [address] 09/16/2024 11:20 AM EDT Office Visit Neurology [employer] [address] [facility] [place] [address] Jodee Austin MD [address] [place] [address] Pending Results Name Type Priority Associated Diagnoses [...] 024, 08/23/2022, 09/20/2021 CKD HGB USE SMARTSET 58691 11/06/202411/06, 11/06/2023, 11/04/2023, Additional history exists CKD PHOS USE SMARTSET 08068 11/06/202410/24, 11/06/2023, 11/05/2023, Additional history exists DTaP,Tdap,and [...] this encounter Medical Devices Implanted Type Area Campus President Device Identifier Shelf Expiration Date Model / Serial / Lot Stent Axios 20mm - [id number] Implanted:Qty: 1 on 01/04/2021 by Leyda Garcia MD at OR [facility] N/A: Stomach [employer] : ENDOSCOPY 11/20/2021 [id number] / / [id number] documented as of this encounter Visit Diagnoses Diagnosis Suprapubic pain Abdominal pain, other specified site Severe protein-energy malnutrition (HCC) Other severe protein-calorie malnutrition Spontaneous bruising Spontaneous ecchymoses documented in this encounter Advance Directives Documents on File Type Date Recorded Patient Manufacturing Maintenance Technician Catherine CLANCY 01/03/2022 [place] OR [facility] FOR LIFE-SUSTAINING TREATMENT * No [...] Other - (no specific identity) Health Care Manufacturing Maintenance Technician (appointed verbally by patient or by statute hierarchy) Rowdy Hogue Sibling Health Care Manufacturing Maintenance Technician (appointed verbally by patient or by statute hierarchy) Care Teams Glass Sagger Relationship Specialty Start Date End Date Evelyn Andrews MD [address] [place] [address] [place] [phone] PCP - General Family Medicine 05/04/18 documented as of this encounter
--- OUTSIDE RECORDS SUMMARY | 2023-12-07 18:02 | External Medical Summary ---
Author Name Unknown Address Unknown Organization K01:[facility] [place] [address] [place] [address] Laboratory Report Ordering Provider Test Date Status TAMY PATTERSON 11/22/2023 12:07:35 Final Warfarin Therapy
INR: 2 .0-3.0 conventional anticoagulation
INR: 2.5- 3.5 high intensity anticoagulation Observation Date Value Abnormality Reference (Units ) Status PT 11/22/2023 12:07:35 13.5 11.6-15.2 (seconds) Final INR 11/22/2023 12:07:35 1.0 0.8-1.2 Final Performing Location [facility] [place] [address] [place] [address]
--- OUTSIDE RECORDS SUMMARY | 2023-12-07 18:02 | External Medical Summary ---
Author Name Unknown Address Unknown Organization K01:LABORATORY [facility] - [address] [place] [address] Laboratory Report Ordering Provider Test Date Status TONY RAMIREZ 11/22/2023 12:07:35 Final Observation Date Value Abnormality Reference (Units ) Status Triglyceride 11/22/2023 12:07:35 143 <=174 ( mg/dL) Final Triglyceride Reference Range s (mg/dL):
<150 Acceptable
150-174 Borderline high
175-499 High
>=500 Very high Performing Location [facility] - [address] [place] [address]
--- OUTSIDE RECORDS SUMMARY | 2023-12-07 18:02 | External Medical Summary ---
Author Name Unknown Address Unknown Organization K01:[facility] [place] [address] [place] [address] Laboratory Report Ordering Provider Test Date Status TONY RAMIREZ 11/22/2023 12:07:35 Final Observation Date Value Abnormality Reference (Units ) Status Folic Acid 11/22/2023 12:07:35 6.9 >4.5 (ng/ mL) Final Performing Location [facility] - [address] [place] [address]
--- OUTSIDE RECORDS SUMMARY | 2023-12-07 18:02 | External Medical Summary ---
Author Name Unknown Address Unknown Organization K01:[facility] [address] [facility] [place] [address] Laboratory Report Ordering Provider Test Date Status TONY RAMIREZ 11/22/2023 12:07:35 Final Observation Date Value Abnormality Reference (Units ) Status SYNC LEUKOCYTES IN BLOOD BY AUTOMATED COUNT 11/22/2023 12:07:35 14.02 Above high normal 4.00-10.80 (K/uL) Final Segs 11/22/2023 12:07:35 66.6 40.0-75.0 (%) Final Lymphs % 11/22/2023 12:07:35 25.1 18.0-42.0 (%) Final Monos 11/22/2023 12:07:35 4.6 1.0-11.0 (%) Final Eosinophils 11/22/2023 12:07:35 2.5 0.0-6.0 (%) Final Basos 11/22/2023 12:07:35 0.9 0.0-2.0 (%) Final Immature Granulocyte, Percent 11/22/2023 12:07:35 0.3 0.0-2.0 (%) Final Absolute Segs 11/22/2023 12:07:35 9.33 Above high normal 1.80-7.70 (K/uL) Final Lymphs, absolute 11/22/2023 12:07:35 3.52 1.00-4.80 (K/ul) Final Monos, Abs 11/22/2023 12:07:35 0.65 0.00-1.10 (K/uL) Final Eos, Abs 11/22/2023 12:07:35 0.35 0.00-0.70 (K/uL) Final Basos, Abs 11/22/2023 12:07:35 0.13 0.00-0.20 (K/uL) Final Immature Granulocytes, Number 11/22/2023 12:07:35 0.04 0.00-0.20 (K/uL) Final Performing Location LAB[facility]ORY [facility] [place] [address] [facility] [address]
--- OUTSIDE RECORDS SUMMARY | 2023-12-07 18:02 | External Medical Summary ---
Author Name Unknown Address Unknown Organization K01:[facility] - [address] [place] [address] Laboratory Report Ordering Provider Test Date Status TONY RAMIREZ 11/22/2023 12:07:35 Final Observation Date Value Abnormality Reference (Units ) Status Magnesium 11/22/2023 12:07:35 2.2 1.5-2.6 (m g/dL) Final Performing Location [facility] - [address] [place] [address]
--- OUTSIDE RECORDS SUMMARY | 2023-12-07 18:02 | External Medical Summary ---
Author Name Unknown Address Unknown Organization K01:[place] [facility] [place] [address] [place] [address] Laboratory Report Ordering Provider Test Date Status TUYET RAMIREZYonathan 11/22/2023 12:07:35 Final Observation Date Value Abnormality Reference (Units ) Status Iron 11/22/2023 12:07:35 80 33-151 (ug /dL) Final Iron-binding capacity 11/22/2023 12:07:35 265 250-425 (ug/dL) Final Transferrin Sat % 11/22/2023 12:07:35 30 15 -55 (%) Final Performing Location LABORATORY C - [address] [place] [address]
--- OUTSIDE RECORDS SUMMARY | 2023-12-07 18:02 | External Medical Summary ---
Author Name Unknown Address Unknown Organization K01:LABORATORY [facility] - [address] [place] [address] Laboratory Report Ordering Provider Test Date Status TONY RAMIREZ 11/22/2023 12:07:35 Final Observation Date Value Abnormality Reference (Units ) Status Phosphate 11/22/2023 12:07:35 5.9 Above high normal 2. 5-4.8 (mg/dL) Final Performing Location [facility] - [address] [place] [address]
--- OUTSIDE RECORDS SUMMARY | 2023-12-07 18:02 | External Medical Summary ---
Author Name Unknown Address Unknown Organization K01:LABORATORY [facility] - [address] [place] [place] [address] Laboratory Report Ordering Provider Test Date Status TUYET RAMIREZYonathan 11/22/2023 12:07:35 Final Observation Date Value Abnormality Reference (Units ) Status Calcium.ionized [Moles/volume] in Serum or Plasma by Ion-selective membrane electrode (ISE) 11/22/2023 12:07:35 1.33 Above high normal 1.13-1.32 (mmol/L) Final This test was developed and its performance characteristics dtermined by [facility]. It has not been cleared or approved by the US Food and Drug Administration Performing Location LABORATORY [facility] - [address] [place] [address]
--- OUTSIDE RECORDS SUMMARY | 2023-12-07 18:02 | External Medical Summary ---
Author Name Unknown Address Unknown Organization K01:[facility] [place] [address] [place] [address] Laboratory Report Ordering Provider Test Date Status TONY RAMIREZ 11/22/2023 12:07:35 Final Observation Date Value Abnormality Reference (Units ) Status Vitamin B12 11/22/2023 12:07:35 534 729-3023 (pg/mL) Final Performing Location LAB[facility] - [address] [place] [address]
--- OUTSIDE RECORDS SUMMARY | 2023-12-07 18:02 | External Medical Summary ---
Author Name Unknown Address Unknown Organization K01:[place] [place] [address] [facility] [address] [place] [address] Laboratory Report Ordering Provider Test Date Status TONY RAMIREZ 11/22/2023 12:07:35 Final Observation Date Value Abnormality Reference (Units ) Status HbA1C 11/22/2023 12:07:35 5.3 4.0-5.6 (% ) Final The use of HbA1c to monitor glycemic status is based on normal hemoglobin and HbA composition. This test should not be used in patients with abnormal hemoglobin that affects the half life of the red blood cell or the in vivo glycation rates. Glucose, estimated average 11/22/2023 12:07:35 105 <126 (mg/dL) Final Performing Location LABORATORY [facility] - [address] [place] [address]
--- OUTSIDE RECORDS SUMMARY | 2023-12-07 18:02 | External Medical Summary | Summary of Care ---
Author Name Unknown Organization [facility] Address [address] [place] [address] Phone [phone] Care Team Providers Care Fire Equipment Operator Name Role Phone Evelyn Andrews MD Primary Care Prov ider Reason for Visit * Reason Comments Outpatient Testing Encounter Details Date Type Department Care Team (Late st Contact Info) Description 11/22/2023 11:50 AM EDT Laboratory Laboratory [address] [place] [address] [facility] [address] [place] [address] Suprapubic pain; Severe [...] FOR MIGRAINE. 10 Tablet 5 09/18/2023 Active Hsgblyndfu-WPSV-Lnwdo ine 50-325-40 MG Oral Tablet (Fioricet)Indications :Migraine [...] daily. 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/2021 FEEDLOT MANAGER 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 02/06/2017 05/02/2018 FEEDLOT MANAGER 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 02/06/2017 07/09/2019 Iron deficiency anemia 06/28/201109/20 Overview: ICD-10 update of inactive term Iron deficiency anemia 06/28/201109/20 Overview: ICD-10 update of inactive term Iron deficiency anemia pat paulino to inadequate dietary iron intake 09/26/2008 3 Secondary hyperparathyroidism, non-renal 03/27/2007 10/24/2023 Infected postoperative seroma 06/02/2003 09/20/2012 PANNICULITIS, [facility] SITE 05/14/200311/2022 documented as of this encounter (statuses as of 11/22/2023) Immunizations Name Administration Dates Next Due COVID-19 mRNA, LNP-s, No Pre serve, 2-Dose Series (Quikly) 02/16/2021,11/25/2020,11/01/2020 COVID-19, MRNA-LNP, 23-24, P F, 30 MCG/0.3 mL, 12 YRS AND ABOVE, IM ([facility]) 04/10/2023 Covid-19, Mrna, Lnp-s, Pf, B ivalent, 30 Mcg, IM, 12 yrs and above (Quikly) 04/12/2022 Pneumococcal Conjugate Vacci ne, 20-valent (Lrxopho47) 12/10/2021 Pneumococcal Polysaccharide PPV23 (Pneumovax) 07/21/2009 Seasonal [...] 10:45 AM EDT Nurse Only Hematology/Oncology Treatment, [place] [address] [place] [address] Nurse, Med [address] [facility] [place] [address] 11/29/2023 5:00 PM EDT Telemedicine Psychiatry [place] [facility] [address] [place] [phone] Alexis Serna MD [address] [place] [address] 12/04/2023 10:00 AM EDT Nurse Only Hematology/Oncology Treatment, [place] [address] [place] [address] Nurse, Med [address] [place] [address] 12/04/2023 3:45 PM EDT Office Visit Urology, [facility] [address] [place] [address] Christopher Almonte MD [address] [facility] [address] [place] [address] 12/05/2023 10:20 AM EDT Telemedicine Nutrition & Weight Management, [place] [address] [place], [place] [phone] Vic Wilkerson DO [address], [place] [phone] 12/13/2023 10:00 AM EDT Telemedicine Family Medicine [address] [phone] Evelyn Andrews MD [address] [place] [address] [place] [phone] 04/29/2024 8:40 AM EST Office Visit [facility] [address] [place] [address] Aris Mohr MD [address] [place] [address] [address] 09/16/2024 11:20 AM EDT [facility] [address] [facility] [place] [address] Jodee Austin MD [address] [place] [address] Pending Results Name Type Priority Associated Diagnoses [...] 024, 08/23/2022, 09/20/2021 CKD HGB USE SMARTSET 70651 11/06/202411/06, 11/06/2023, 11/04/2023, Additional history exists CKD PHOS USE SMARTSET 35575 11/06/202410/24, 11/06/2023, 11/05/2023, Additional history exists DTaP,Tdap,and [...] this encounter Medical Devices Implanted Type Area Pharmacists Device Identifier Shelf Expiration Date Model / Serial / Lot Stent Axios 20mm - [id number] Implanted:Qty: 1 on 01/04/2021 by Leyda Garcia MD at OR [facility] N/A: Stomach [employer] : ENDOSCOPY 11/20/2021 [id number] / / [id number] documented as of this encounter Visit Diagnoses Diagnosis Suprapubic pain Abdominal pain, other specified site Severe protein-energy malnutrition (HCC) Other severe protein-calorie malnutrition Spontaneous bruising Spontaneous ecchymoses documented in this encounter Advance Directives Documents on File Type Date Recorded Patient Absorption Operator Expl anation POLST 01/03/2022 [place] [facility] FOR [facility]-SUSTAINING TREATMENT * No Code [...] Other - (no specific identity) Health Care Absorption Operator (appointed verbally by patient or by statute hierarchy) Rowdybrady Hogue Sibling Health Care Absorption Operator (appointed verbally by patient or by statute hierarchy) Care Teams Fire Equipment Operator Relationship Specialty Start Date End Date Evelyn Andrews MD [address] [place] [address] [place] [phone] PCP - General Family Medicine 05/04/18 documented as of this encounter
--- OUTSIDE RECORDS SUMMARY | 2023-12-07 18:02 | External Medical Summary ---
Author Name Unknown Address Unknown Organization : Laboratory Report Ordering Provider Test Date Status TONY RAMIREZ 11/22/2023 12:07:35 Final Observation Date Value Abnormality Reference (Units ) Status VITAMIN C 11/22/2023 12:07:35 0.2 Below low normal 0.3 -2.7 (mg/dL) Final This test was developed and its analytical performance
characteristics have been determined by [employer]. It has not been cleared or approved by the
FDA. This assay has been validated pursuant to the CLIA
regulations and is used for clinical purposes.
Test performed by:
[facility] [employer]
[address] [facility]
[place] [address]

[phone]
Baggage Screener: Chris Lazcano M.D.
Test Reported by [facility],
[employer],
[address] [place], [place]
Armando Chanel M.D., Ph.D., Director of Laboratories
, CLIA [id number] Performing Location
--- OUTSIDE RECORDS SUMMARY | 2023-12-07 18:02 | External Medical Summary ---
Author Name Unknown Address Unknown Organization : Laboratory Report Ordering Provider Test Date Status TONY RAMIREZ 11/22/2023 12:07:35 Final Observation Date Value Abnormality Reference (Units ) Status Homocysteine 11/22/2023 12:07:35 17.0 Above high normal <10.4 (umol/L) Final Homocysteine is increased by functional deficiency of
folate or vitamin B12. Testing for methylmalonic acid
differentiates between these deficiencies. Other causes
of increased homocysteine include renal failure, folate
antagonists such as methotrexate and phenytoin, and
exposure to nitrous oxide.
Julio Adkins, et al. Sarah Locomotive Engineer Med. 1999;131(5):331-9.

Test Performed at:
[facility]
[address] [facility]
[place] [address]
Armando Chanel M.D., Ph.D.,Director of Laboratories Performing Location
--- OUTSIDE RECORDS SUMMARY | 2023-12-07 18:02 | External Medical Summary ---
Author Name Unknown Address Unknown Organization : Laboratory Report Ordering Provider Test Date Status TONY RAMIREZ 11/22/2023 12:07:35 Final Observation Date Value Abnormality Reference (Units ) Status MANGANESE, BLOOD 11/22/2023 12:07:35 6.6 4.2 -16.5 (mcg/L) Final This test was developed and its analytical performance
characteristics have been determined by [employer]. It has not been cleared or approved by the
FDA. This assay has been validated pursuant to the CLIA
regulations and is used for clinical purposes.
Test performed by:
[email or web address]
[address] [facility] [place] [address]

[phone]
Marketing Operations Specialist: Chris Lazcano M.D.
Test Reported by [facility],
[email or web address],
[address] [place], [place]
Armando Chanel M.D., Ph.D., Director of Laboratories
, CLIA [id number] Performing Location
--- OUTSIDE RECORDS SUMMARY | 2023-12-07 18:02 | External Medical Summary ---
Author Name Unknown Address Unknown Organization K01:LABORATORY [facility] - [address] [place] [address] Laboratory Report Ordering Provider Test Date Status TONY RAMIREZ 11/22/2023 12:07:35 Final Observation Date Value Abnormality Reference (Units ) Status Parathyrin.intact [Mass/volume] in Serum or Plasma 11/22/2023 12:07:35 294 Above high normal 15-65 (pg/mL) Final Performing Location LABORATORY [facility] - [address] [place] [address]
--- OUTSIDE RECORDS SUMMARY | 2023-12-07 18:02 | External Medical Summary ---
Author Name Unknown Address Unknown Organization : Laboratory Report Ordering Provider Test Date Status TONY RAMIREZ 11/22/2023 12:07:35 Final Observation Date Value Abnormality Reference (Units ) Status METHYLMALONIC ACID 11/22/2023 12:07:35 285 8 7-318 (nmol/L) Final This test was developed and its analytical performance
characteristics have been determined by [email or web address]
[place]. It has
not been cleared or approved by the U.S. Food and Drug
Administration. This assay has been validated pursuant
to the CLIA regulations and is used for clinical
purposes.

Test Performed at:
[facility] [facility][1]
[address] [facility]
[place] [address]
Armando Chanel M.D., Ph.D.,Director of Laboratories Performing Location
--- OUTSIDE RECORDS SUMMARY | 2023-12-07 18:02 | External Medical Summary ---
Author Name Unknown Address Unknown Organization : Laboratory Report Ordering Provider Test Date Status TONY RAMIREZ 11/22/2023 12:07:35 Final Observation Date Value Abnormality Reference (Units ) Status Thiamine [Moles/volume] in Blood 11/22/2023 12:07:35 163 78-185 (nmol/L) Final Vitamin supplementation with in 24 hours prior to
blood draw may affect the accuracy of the results.
This test was developed and its analytical performance
characteristics have been determined by [facility] [place], [place]. It has
not been cleared or approved by the U.S. Food and Drug
Administration. This assay has been validated pursuant
to the CLIA regulations and is used for clinical
purposes.

Test Performed at:
[facility]
[address] [facility]
[place] [address]
Armando Chanel M.D., Ph.D.,Director of Laboratories Performing Location
--- OUTSIDE RECORDS SUMMARY | 2023-12-07 18:03 | External Medical Summary ---
Author Name Unknown Address Unknown Organization K01:LAB[facility]ATORY [facility] - [address] [facility] [place] [address] Laboratory Report Ordering Provider Test Date Status TONY RAMIREZ 11/22/2023 12:07:35 Final Observation Date Value Abnormality Reference (Units ) Status BUN 11/22/2023 12:07:35 45 Above high normal 6-20 (mg/dL) Final Creatinine 11/22/2023 12:07:35 1.7 Above high normal 0.5-1.0 (mg/dL) Final Glomerular filtration rate/1.73 sq M.predicted [Volume Rate/Area] in Serum, Plasma or Blood by Creatinine-based formula (CKD-EPI) 11/22/2023 12:07:35 34 Below low normal >=60 (mL/min) Final eGFR is calculated based on the CKD-EPI 2020 equation Sodium 11/22/2023 12:07:35 141 135-146 (m mol/L) Final Potassium 11/22/2023 12:07:35 4.8 3.5-5.1 (m mol/L) Final Cl 11/22/2023 12:07:35 113 Above high normal 98 -107 (mmol/L) Final CO2 11/22/2023 12:07:35 11 Below low normal 22- 32 (mmol/L) Final Anion gap 11/22/2023 12:07:35 17 Above high normal 7- 15 (mmol/L) Final Glucose 11/22/2023 12:07:35 83 70-120 (mg /dL) Final Albumin 11/22/2023 12:07:35 4.3 3.8-5.0 (g /dL) Final AST (Aspartate aminotransferase) 11/22/2023 12:07:35 17 10-35 (U/L) Fin al Alk Phos 11/22/2023 12:07:35 196 Above high normal 35 -130 (U/L) Final Bilirubin, Total 11/22/2023 12:07:35 <0.2 <=1 .2 (mg/dL) Final Calcium 11/22/2023 12:07:35 8.6 8.4-10.2 ( mg/dL) Final Protein 11/22/2023 12:07:35 6.8 6.0-8.3 (g /dL) Final ALT (Alanine aminotransferase) 11/22/2023 12:07:35 23 10-35 (U/L) Matthew belle Performing Location [facility] - [address] [facility] [address]
--- OUTSIDE RECORDS SUMMARY | 2023-12-07 18:03 | External Medical Summary | Summary of Care ---
Author Name Unknown Organization [facility] Address [address] [place] [address] Phone [phone] Care Team Providers Care Vest Finisher Name Role Phone Evelyn Andrews MD Primary Care Prov ider Encounter Details Date Type Department Care Team (Late st Contact Info) Description 11/09/2023 Documentation Home Infusion, [place] [address] [place] [address] [address] Allergies Active Allergy Reactions Criticality Noted Date Comments Amoxicillin Edema airway High 01/22/2003 Oxybutynin 03/25/2023 Mouth ulcers Sulfa Antibiotics Edema airway High 08/15/2006 documented as of this encounter (statuses as of 11/09/2023) Medications Medication Sig Dispensed Refills Start Date End Date Status CYANOCOBALAMIN 1000 MCG/ML IJ SOLN one injection monthly 0 Active CALCITRIOL 0.25 MCG PO CAPS 1 CAPSULE BY MOUTH MONDAYS/WEDNESDAYS /FRIDAYS 5 04/10/2014 Active [facility] ACETAMINOPHEN EX [facility] 500 MG Tablet TAKE 1 CAPSULE BY MOUTH EVERY 4 HOURS 0 07/03/2019 Active Oyster Shell Calcium 500 MG [...] mouth in the morning. 30 Capsule 0 12/15/2022 Active DULoxetine HCl 60 MG Oral [...] as needed for Cough. 120 mL 0 06/28/2023 Active OLANZapine 5 MG Oral Tablet Disintegrating (zyPREXA zyDIS) Place 1 Tablet on tongue in the morning. 30 Tablet 5 07/04/2023 Active Omeprazole 20 MG Oral Capsule Delayed Release (PriLOSEC) TAKE 1 CAPSULE BY MOUTH EVERY DAY IN THE MORNING 90 Capsule 4 07/26/2023 Active Diphenoxylate-Atropi ne 2.5-0.025 MG Oral Tablet (Lomotil)Indications :Migraine variant TAKE ONE TABLET BY MOUTH 4 TIMES DAILY NEEDED FOR DAIRRHEA 60 Tablet 0 08/09/2023 Active Promethazine HCl 25 MG Oral Tablet (Phenergan)Indicatio ns:Nausea Take 1 Tablet by mouth every 8 hours as needed for Nausea. 30 Tablet 3 08/15/2023 Active Rizatriptan Benzoate 10 MG Oral Tablet (Maxalt)Indications: Migraine variant TAKE 1 TAB BY MOUTH DAILY NEEDED FOR MIGRAINE. 10 Tablet 5 09/18/2023 Active Akcclrazgq-SZFJ-Qlhy eine 50-325-40 MG Oral Tablet (Fioricet)Indication s:Migraine variant TAKE ONE TABLET EVERY 6 HOURS NEEDED FOR PAIN 90 Tablet 1 09/19/2023 Active Pregabalin 25 MG Oral Capsule (Lyrica)Indications: Copper deficiency myeloneuropathy (HCC),Hereditary and idiopathic peripheral neuropathy Take 1 Capsule by mouth in the morning and 1 Capsule before bedtime. 60 Capsule 5 09/19/2023 Active Ferrous Sulfate 325 (65 Fe) MG Oral Tablet (Feosol) Take 1 Tablet by mouth daily at noon. 30 Tablet 0 10/10/2023 11/09/19 24 Active Ascorbic Acid 250 MG Oral Tablet Take 1 Tablet by mouth daily at noon. 30 Tablet 0 10/10/2023 11/09/19 24 Active Vitamin E 400 UNIT Oral Capsule (Aquasol E) Take 1 Capsule by mouth in the morning. 30 Capsule 0 10/10/2023 11/09/19 24 Active Sodium Bicarbonate 650 MG Oral Tablet Take 2 Tablets by mouth in the morning and 2 Tablets before bedtime. 120 Tablet 0 10/10/2023 11/09/19 24 Active Cholestyramine Light 4 GM Oral Packet (Prevalite) Mix 1 packet in 4 to 6 ounces of your favorate NONCARBONATED beverage and stir vigorously and drink by mouth daily in the morning. 30 Packet 0 10/10/2023 11/09/19 24 Active Additional Information Patient not taking.Reported on 11/03/2023 Ergocalciferol 1.25 MG (15988 UT) Oral Capsule (Vitamin D2(Drisdol)) Take 1 Capsule by mouth once a day on Monday, Monday, and Monday only. 12 Capsule 0 10/10/2023 11/09/19 24 Active busPIRone HCl 5 MG Oral Tablet (Buspar) Take 1 Tablet by mouth in the morning and 1 Tablet at noon and 1 Tablet before bedtime. 90 Tablet 0 10/10/2023 11/09/19 24 Active Lidocaine 4 % External Patch (Aspercreme)Indicati ons:Myelopathy (HCC) Place 1 Patch over 12 hours topically on the skin daily. 90 Patch 3 10/16/2023 Active traMADol HCl 50 MG Oral Tablet (Ultram)Indications: Other idiopathic scoliosis, thoracic region,Chronic midline thoracic back pain Take 1 Tablet by mouth daily as needed for Pain, Severe. 30 Tablet 0 10/24/2023 Active Nystatin 889043 UNIT/GM External Cream APPLY TO AFFECTED AREA [...] Take 1 Tablet by mouth at bedtime. 0 Active documented as of this encounter (statuses as of 11/09/2023) Active Problems Problem Noted Date Diagnosed Date [...] as of this encounter (statuses as of 11/09/2023) Resolved Problems Problem Noted Date Diagnosed Date Resolved Date Old AL (myocardial infarction) 03/01/2023 03/01/2023 Atherosclerosis of [place] ronary artery without angina pectoris 02/08/2022 [...] malnutrition 09/28/2018 09/23/2021 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/2021 SURGICAL INSTRUMENT MAKER 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 02/06/2017 05/02/2018 SURGICAL INSTRUMENT MAKER 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 02/06/2017 07/09/2019 Iron deficiency anemia 06/28/201109/20 Overview: ICD-10 update of inactive term Iron deficiency anemia 06/28/201109/20 Overview: ICD-10 update of inactive term Iron deficiency anemia pat morrisony to inadequate dietary iron intake 09/26/2008 3 Secondary hyperparathyroidism, non-renal 03/27/2007 10/24/2023 Infected postoperative seroma 06/02/2003 09/20/2012 [facility]2003 09/0 11/2022 documented as of this encounter (statuses as of 11/09/2023) Immunizations Name Administration Dates Next Due COVID-19 mRNA, LNP-s, No Pre serve, 2-Dose Series ([email or web address]) 02/16/2021,11/25/2020,11/01/2020 COVID-19, MRNA-LNP, 23-24, P F, 30 MCG/0.3 mL, 12 YRS AND ABOVE, IM (PFIZER-Comirnaty) 04/10/2023 Covid-19, Mrna, Lnp-s, Pf, B ivalent, 30 Mcg, IM, 12 yrs and above (Pfizer) 04/12/2022 Pneumococcal Conjugate Vacci ne, 20-valent ([id number]) 12/10/2021 Pneumococcal Polysaccharide PPV23 (Pneumovax) 07/21/2009 Seasonal [...] this encounter Progress Notes * Mayra Crook, [facility] - 11/09/2023 1:41 PM EDT [facility] Adult TPN Documentation Patient Phone Numbers mobile [phone] Results for orders placed or performed during [...] orders placed or performed in visit on 09/04/23 COMPREHENSIVE METABOLIC PANEL Result Value Ref Range BUN 23 (H) 6 - 20 mg/dL Creatinine 1.0 0.5 - 1.0 mg/dL Estimated Glomerular Filtration Rate 64 >=60 mL/min Sodium 139 135 - 146 mmol/L Potassium 4.5 3.5 - 5.1 mmol/L Chloride 111 (H) 98 - 107 mmol/L CO2 17 (L) 22 - 32 mmol/L Anion Gap 11 7 - 15 mmol/L Glucose 117 70 - 120 mg/dL Albumin 3.6 (L) 3.8 - 5.0 g/dL AST 21 10 - 35 U/L Alkaline Phosphatase 118 35 - 130 U/L Bilirubin, Total 0.2 <=1.2 mg/dL Calcium 8.9 8.4 - 10.2 mg/dL Protein 6.3 6.0 - 8.3 g/dL ALT 17 10 - 35 U/L Lab Results Component Value Date/Time MAGNESIUM - [facility] 2.0 11/07/2023 04:25 AM MAGNESIUM - [facility] 1.7 05/10/2019 02:25 PM MAGNESIUM URINE 24HR 107 05/22/2013 11:39 AM MAGNESIUM-OUTSIDE LAB 1.3 (L) 11/30/2020 04:26 AM Lab Results Component Value Date/Time PHOSPHORUS - [facility] 3.6 11/07/2023 04:25 AM PHOSPHORUS - [facility] 3.9 05/10/2019 02:25 PM PHOSPHORUS, 24 HOUR URINE - [facility] 0.402 05/22/2013 11:39 AM PHOSPHORUS-OUTSIDE LAB 4.3 11/30/2020 12:00 AM PHOSPHORUS-OUTSIDE LAB 4.3 11/28/2020 09:46 AM Lab Results Component Value Date/Time CALCIUM - [facility] 8.7 11/07/2023 04:25 AM CALCIUM - [facility] 8.5 07/16/2020 12:54 PM CALCIUM, 24 HOUR URINE - [facility] 0.065 05/10/2019 02:25 PM CALCIUM, IONIZED - [facility] 1.27 11/07/2023 04:25 AM CALCIUM, IONIZED - [facility] 1.33 (H) 07/21/2009 11:31 AM Patient weight (kg):40.5 kg (11/07/23) Amino acids (gm): 65 Dextrose (gm): 190 Lipids (gm): 35 Days per week (lipids): 4 Volume (ml): 1000 Cycle (hr): 12 with one hour taper down Days per week infused: 4 Sodium Chloride (mEq): 24 Sodium Phosphate (mM): 10 Sodium Acetate (mEq): 0 Potassium Chloride (mEq): 0 Potassium Phosphate (mM): 0 Potassium Acetate (mEq): 40 Calcium Gluconate (mEq): 4 Magnesium Sulfate (mEq): 4 Multiple Trace elements [...] TPN for severe malnutrition. Discussed with Dr. Boswell: Continue TPN athome to be run four days per week. Will send new CADD pump due to volume/rate change. Sending 11/08/23 to cover TPN through 11/13/23. Next weekly labs 11/13/23: CMP, Magnesium, Phosphorus, and ionized Calcium. Next Comprehensive labs 11/13/23. Next nutrition appointment: TBD Mayra Crook RPh 11/09/2023 1:41 PM documented in this encounter Plan of Treatment Upcoming Encounters Date Type Department Care Team (Late st Contact Info) Description 11/29/2023 5:00 PM EDT Telemedicine Psychiatry Vanessa Alex [address] [place] [phone] Alexis Serna MD [address] [facility] [place] [phone] 12/04/2023 3:45 PM EDT Office Visit Urology, [facility] [address] [place] [address] Christopher Almonte MD [address] [facility] [address] [place] [address] 04/29/2024 8:40 AM EST Office Visit Neurology [facility] [address] [facility] [place] [address] Aris Mohr MD [address] [facility] [place] [address] 09/16/2024 11:20 AM EDT Office Visit Neurology [facility] [place] [address] [place] [address] [facility]e [facility] [address] [facility] [address] Health Maintenance Due Date Last Done Comments HPV/Co-Test 1993 Cologuard 2008 Fecal Occult Blood Test 2008 Sigmoidoscopy 2008 Mammogram 08/18/2011 08/18/2010, 08/11/2009 Cervical Cancer Screening 09/27/2014 Pap Smear 09/27/2014 09/28/2011, 11/2010, 07/07/2010, Additional history exists Depression, Most Recent Score >= 10 (will fire each visit until score < 10) 05/23/2023 05/22/2023 Colonoscopy 12/11/2023 12/10/2013, 11/24, 01/15/2007 Colorectal Cancer Screening 12/11/2023 GFR 05/09/2024 11/07/2023, 10/24, 11/05/2023, Additional history exists Albumin/Creatinine Ratio 08/23/2024 024, 08/23/2022, 09/20/2021 CKD HGB USE SMARTSET 69979 11/06/202411/06, 11/06/2023, 11/04/2023, Additional history exists CKD PHOS USE SMARTSET 34772 11/06/202410/24, 11/06/2023, 11/05/2023, Additional history exists DTaP,Tdap,and [...] this encounter Medical Devices Implanted Type Area Pipe Fitter Soft Copper Device Identifier Shelf Expiration Date Model / Serial / Lot Stent Axios 20mm - [id number] Implanted:Qty: 1 on 01/04/2021 by Leyda Garcia MD at OR [facility] N/A: Stomach [employer] : ENDOSCOPY 11/20/2021 [id number] / / [id number] documented as of this encounter Advance Directives Documents on File Type Date Recorded Patient Pharmacist Helper Expl anation POLST 01/03/2022 [place] [facility] FOR LIFE-SUSTAINING TREATMENT Latest Code Status on File Code Status Date Activated Date Inactivated Comments No Code 11/03/2023 5:42 PM 11/07/2023 3:43 PM This order reflects the patients wishes and were consensually agreed upon. Question Answer Comments Discussion of Advance Directives occurred with: Patient Code Status History Code Status Date Activated Date Inactivated Comments No Code 09/20/2023 2:18 PM 10/10/2023 4:01 PM This order reflects the patients wishes and were consensually agreed upon. Question Answer Comments Discussion of Advance Directives occurred with: Patient No Code 12/08/2022 11:17 AM 12/15/2022 8:22 PM This order reflects the patients wishes and were consensually agreed upon. Question Answer Comments Discussion of Advance Directives occurred with: Patient Full Code 12/08/2022 10:55 AM 12/08/2022 11:17 AM Thi s order reflects the patients wishes and were consensually agreed upon. Question Answer Comments Discussion of Advance Directives occurred with: Not Discussed due to patient's condition Full Code 11/18/2022 8:06 AM 11/19/2022 3:28 PM This order reflects the patients wishes and were consensually agreed upon. Question Answer Comments Discussion of Advance Directives occurred with: Patient Healthcare Agents on File Name Relationship Healthcare Agent Relationship Communication Ariella Acosta Other - (no specific identity) Health Care Pharmacist Helper (appointed verbally by patient or by statute hierarchy) Rowdy Kraus Health Care Pharmacist Helper (appointed verbally by patient or by statute hierarchy) Care Teams Vest Finisher Relationship Specialty Start Date End Date Evelyn Andrews MD [address] [place] [address] [place] [phone] PCP - General Family Medicine 05/04/18 documented as of this encounter
--- OUTSIDE RECORDS SUMMARY | 2023-12-07 18:03 | External Medical Summary ---
Author Name Unknown Address Unknown Organization : Laboratory Report Ordering Provider Test Date Status TONY RAMIREZ 11/22/2023 12:07:35 Final Observation Date Value Abnormality Reference (Units ) Status Vitamin E, level 11/22/2023 12:07:35 5.0 Below low nor mal 5.7-19.9 (mg/L) Final Levels of alpha-tocopherol < 5 mg/L are consistent
with Vitamin E deficiency in adults. Beta+gamma tocopherol [Mass/ volume] in Serum or Plasma 11/22/2023 12:07:35 <1.0 <=4.3 (mg/L) Final Vitamin supplementation with in 24 hours prior to
blood draw may affect the accuracy of the results.
This test was developed and its analytical performance
characteristics have been determined by [facility] [place], [place]. It has
not been cleared or approved by the U.S. Food and Drug
Administration. This assay has been validated pursuant
to the CLIA regulations and is used for clinical
purposes.

Test Performed at:
[facility]
[id number] [facility]
[place] [address]
Armando Chanel M.D., Ph.D.,Director of Laboratories Performing Location
--- OUTSIDE RECORDS SUMMARY | 2023-12-07 18:03 | External Medical Summary | Summary of Care ---
Author Name Unknown Organization [facility] Address [address] [place] [address] Phone [phone] Care Team Providers Care Maintenance Painter Name Role Phone Evelyn Andrews MD Primary Care Prov ider Reason for Visit * Reason Comments Medication Management Encounter Details Date Type Department Care Team (Late st Contact Info) Description 11/16/2023 Documentation Home [facility], [place] [address] [place] [address] [phone] Allergies Active Allergy Reactions Criticality Noted Date Comments Amoxicillin Edema airway High 01/22/2003 Oxybutynin 03/25/2023 Mouth ulcers Sulfa Antibiotics Edema airway High 08/15/2006 documented as of this encounter (statuses as of 11/17/2023) Medications Medication Sig Dispensed Refills Start Date [...] FOR MIGRAINE. 10 Tablet 5 09/18/2023 Active Spsyovmdqh-XWRY-Pzwu eine 50-325-40 MG Oral Tablet (Fioricet)Indication s:Migraine [...] daily. 90 Patch 3 10/16/2023 Active Nystatin 423924 UNIT/GM External Cream APPLY TO AFFECTED AREA [...] TIMES DAILY NEEDED FOR DAIRRHEA 60 Tablet 08/09/2023 4 Discontinu ed(Refill) traMADol HCl 50 MG Oral Tablet (Ultram)Indications: Other idiopathic scoliosis, thoracic region,Chronic midline thoracic back pain Take 1 Tablet by mouth daily as needed for Pain, Severe. 30 Tablet 10/24/2023 4 Discontinu ed(Refill) documented as of this encounter (statuses as of 11/17/2023) Active Problems Problem Noted Date Diagnosed Date [...] as of this encounter (statuses as of 11/17/2023) Resolved Problems Problem Noted Date Diagnosed Date Resolved Date Old DC (myocardial infarction) 03/01/2023 03/01/2023 Atherosclerosis of [place] co ronary artery without angina pectoris 02/08/2022 [...] malnutrition 09/28/2018 09/23/2021 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/2021 SALES ACTIVITY MANAGER 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 02/06/2017 05/02/2018 SALES ACTIVITY MANAGER 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 02/06/2017 07/09/2019 Iron deficiency anemia 06/28/201109/20 Overview: ICD-10 update of inactive term Iron deficiency anemia 06/28/201109/20 Overview: ICD-10 update of inactive term Iron deficiency anemia pat paulino to inadequate dietary iron intake 09/26/2008 3 Secondary hyperparathyroidism, non-renal 03/27/2007 10/24/2023 Infected postoperative seroma 06/02/2003 09/20/2012 PANNICULITIS, UNSP SITE 05/14/200311/2022 documented as of this encounter (statuses as of 11/17/2023) Immunizations Name Administration Dates Next Due COVID-19 mRNA, LNP-s, No Pre serve, 2-Dose Series ([employer]) 02/16/2021,11/25/2020,11/01/2020 COVID-19, MRNA-LNP, 23-24, P F, 30 MCG/0.3 mL, 12 YRS AND ABOVE, IM ([employer]) 04/10/2023 Covid-19, Mrna, Lnp-s, Pf, B ivalent, 30 Mcg, IM, 12 yrs and above (Pfizer) 04/12/2022 Pneumococcal Conjugate Vacci ne, 20-valent ([id number]) 12/10/2021 Pneumococcal Polysaccharide PPV23 (Pneumovax) 07/21/2009 Seasonal [...] this encounter Progress Notes * Mayra Crook [facility] - 11/16/2023 5:15 PM EDT [facility] Adult TPN Documentation [...] week infused: 4 Sodium Chloride (mEq): 0 was 24 Sodium Phosphate (mM): 10 Sodium Acetate (mEq): 84 was 0 Potassium Chloride (mEq): 0 Potassium Phosphate [...] malnutrition. Discussed with Dr. Wilkerson: Continue TPN at home to be run four days per week. Remove Sodium Chloride and add 84 mEq Na acetate per Day. Gywzpyc59/23/24 to cover TPN through 11/23/23. Next weekly labs 11/22/23: CMP, Magnesium, Phosphorus, and ionized Calcium. Next Comprehensive labs 11/22/23. Next nutrition appointment: TBD Mayra Crook RPh 11/16/2023 5:16 PM documented in this encounter Plan of Treatment Upcoming Encounters Date Type Department Care Team (Late st Contact Info) Description 11/22/2023 10:20 AM EDT Office Visit [address] [phone] Evelyn Andrews MD [address] [place] [address] [place] [address] 11/27/2023 10:45 AM EDT Nurse Only Hematology/Oncology Treatment, [place] [address] [place] [phone] Nurse, Med 4 [address] [facility] [place] [address] 11/29/2023 5:00 PM EDT Telemedicine Psychiatry [facility] [address] [place] [address] Alexis Serna MD [address] [place] [address] 12/04/2023 10:00 AM EDT Nurse Only Hematology/Oncology Treatment, [place] [address] [facility] [place] [address] Nurse, Med 4 [address] [facility] [place], [place] [address] 12/04/2023 3:45 PM EDT Office Visit Urology, [facility] [address] [place] [address] Christopher Almonte MD [address] [address] 04/29/2024 8:40 AM EST Office Visit Neurology [facility] [address] [facility] [place] [address] Aris Mohr MD [address] [facility] [place] [address] 09/16/2024 11:20 AM EDT Office Visit Neurology [facility] [address] [place] [address] Jodee Austin MD [address] [place] [address] Health Maintenance Due Date Last [...] 024, 08/23/2022, 09/20/2021 CKD HGB USE SMARTSET 72063 11/06/202411/06, 11/06/2023, 11/04/2023, Additional history exists CKD PHOS USE SMARTSET 85500 11/06/202410/24, 11/06/2023, 11/05/2023, Additional history exists DTaP,Tdap,and [...] this encounter Medical Devices Implanted Type Area Station Cleaning Porter Device Identifier Shelf Expiration Date Model / Serial / Lot Stent A[employer] 20mm - [id number] Implanted:Qty: 1 on 01/04/2021 by Leyda Garcia MD at OR [facility] N/A: Stomach [employer] : ENDOSCOPY 11/20/2021 [id number] / / [id number] documented as of this encounter Advance Directives Documents on File Type Date Recorded Patient Grinder Lap Expl anation POLST 01/03/2022 [place] OR [facility] FOR [...] Other - (no specific identity) Health Care Grinder Lap (appointed verbally by patient or by statute hierarchy) Rowdy Hogue [facility] Health Care Grinder Lap (appointed verbally by patient or by statute hierarchy) Care Teams Maintenance Painter Relationship Specialty Start Date End Date Evelyn Andrews MD [address] [place] [address] [place] [address] PCP - General Family Medicine 05/04/18 documented as of this encounter
--- OUTSIDE RECORDS SUMMARY | 2023-12-07 18:03 | External Medical Summary | Summary of Care ---
Author Name Unknown Organization [facility] Address [address] [place] [address] Phone [phone] Care Team Providers Care Valve Assembler Name Role Phone Evelyn Andrews MD Primary Care Prov ider Reason for Visit * Reason Onset Date Comments FYI 11/10/2023 Encounter Details Date Type Department Care Team (Late st Contact Info) Description 11/10/2023 Telephone Nutrition & Weight Management, [place] [address] [place] [address] Vic Wilkerson, [address] [place], [place] [phone] FYI Allergies Active Allergy Reactions Criticality Noted Date Comments Amoxicillin Edema airway High 01/22/2003 Oxybutynin 03/25/2023 Mouth ulcers Sulfa Antibiotics Edema airway High 08/15/2006 documented as of this encounter (statuses as of 11/10/2023) Medications Medication Sig Dispensed Refills Start Date [...] THE MORNING 90 Capsule 4 07/26/2023 Active Diphenoxylate-Atropin e 2.5-0.025 MG Oral Tablet [...] FOR MIGRAINE. 10 Tablet 5 09/18/2023 Active Hdkjjpbloh-CPRD-Himtx ine 50-325-40 MG Oral Tablet (Fioricet)Indications :Migraine [...] Severe. 30 Tablet 0 10/24/2023 Active Nystatin 505419 UNIT/GM External Cream APPLY TO AFFECTED AREA [...] as of this encounter (statuses as of 11/10/2023) Active Problems Problem Noted Date Diagnosed Date [...] as of this encounter (statuses as of 11/10/2023) Resolved Problems Problem Noted Date Diagnosed Date Resolved Date Old [place] (myocardial infarction) 03/01/2023 03/01/2023 Atherosclerosis of [place] co ronary artery without angina pectoris 02/08/2022 [...] malnutrition 09/28/2018 09/23/2021 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/2021 INSECT CONTROL INSPECTOR 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 02/06/2017 05/02/2018 INSECT CONTROL INSPECTOR 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 02/06/2017 07/09/2019 Iron deficiency anemia 06/28/201109/20 Overview: ICD-10 update of inactive term Iron deficiency anemia 06/28/201109/20 Overview: ICD-10 update of inactive term Iron deficiency anemia pat paulino to inadequate dietary iron intake 09/26/2008 3 Secondary hyperparathyroidism, non-renal 03/27/2007 10/24/2023 Infected postoperative seroma 06/02/2003 09/20/2012 PANNICULITIS, UNSP SITE 05/14/200311/2022 documented as of this encounter (statuses as of 11/10/2023) Immunizations Name Administration Dates Next Due COVID-19 mRNA, LNP-s, No Pre serve, 2-Dose Series (Fluential) 02/16/2021,11/25/2020,11/01/2020 COVID-19, MRNA-LNP, 23-24, P F, 30 MCG/0.3 mL, 12 YRS AND ABOVE, IM ([facility]) 04/10/2023 Covid-19, Mrna, Lnp-s, Pf, B ivalent, 30 Mcg, IM, 12 yrs and above (Pfizer) 04/12/2022 Pneumococcal Conjugate Vacci ne, 20-valent ([id number]) 12/10/2021 Pneumococcal Polysaccharide PPV23 (Pneumovax) 07/21/2009 Seasonal [...] No 11/03/2023 documented as of this encounter Miscellaneous Notes * Telephone Encounter - LindsaygilyssaJohanna, [facility] - 11/10/2023 3:28 PM EDT Patient did not infuse TPN Monday evening as instructed. She called the front window cashier nurse that nightand could not cardiopulmonary supervisor the TPN to the pump. sorting supervisor nurse spent over 1 hr with the patient but patient could not cardiopulmonary supervisor. 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 Patient is supposed to infuse 4 bags per week. Several pumps have been sent and not returned. Arrangements have been made for [facility] [employer] [employer] supervisor to meet the patient at [facility] on Monday11/13/23 for education on infusing TPN using the CADD pump. Client is agreeable and is aware to bring 3 CADD pumps with to appointment. documented in this encounter Plan of Treatment Upcoming Encounters Date Type Department Care Team (Late st Contact Info) Description 11/29/2023 5:00 PM EDT Telemedicine Psychiatry [place] [address] [place] [phone] Alexis Serna MD [address] [place] [address] 12/04/2023 3:45 PM EDT Office Visit Urology, [facility] [address] [facility] [place] [address] Christopher Almonte MD [address] [facility] [address] [place] [address] 04/29/2024 8:40 AM EST Office Visit Neurology [facility] [address] [facility] [place] [address] Aris Mohr MD [address] [facility] [place] [address] 09/16/2024 11:20 AM EDT Office Visit Neurology [facility] [address] [facility] [place] [address] Jodee Austin MD [address] [place], [place] [phone] Health Maintenance Due Date Last Done Comments [...] 024, 08/23/2022, 09/20/2021 CKD HGB USE SMARTSET 12236 11/06/202411/06, 11/06/2023, 11/04/2023, Additional history exists CKD PHOS USE SMARTSET 43111 11/06/202410/24, 11/06/2023, 11/05/2023, Additional history exists DTaP,Tdap,and [...] this encounter Medical Devices Implanted Type Area Psychological Operations Officer Device Identifier Shelf Expiration Date Model / Serial / Lot Stent Axios 20mm - [id number] Implanted:Qty: 1 on 01/04/2021 by Leyda Garcia MD at OR [facility] N/A: Stomach [employer] : ENDOSCOPY 11/20/2021 [id number] / / [id number] documented as of this encounter Advance Directives Documents on File Type Date Recorded Patient Long Term Care Administrator Expl anation POLST 01/03/2022 [place] OR [facility] FOR LIFE-SUSTAINING TREATMENT Latest Code Status on [...] Other - (no specific identity) Health Care Long Term Care Administrator (appointed verbally by patient or by statute hierarchy) Rowdybrady Kraus Health Care Long Term Care Administrator (appointed verbally by patient or by statute hierarchy) Care Teams Valve Assembler Relationship Specialty Start Date End Date Evelyn Andrews MD [address] [place] [address] [place] [phone] PCP - General Family Medicine 05/04/18 documented as of this encounter
--- OUTSIDE RECORDS SUMMARY | 2023-12-07 18:03 | External Medical Summary | Summary of Care ---
Author Name Unknown Organization [facility] Address [address] [place] [address] Phone [phone] Care Team Providers Care Gold Tooler Name Role Phone Evelyn Andrews MD Primary Care Prov ider Reason for Visit * Reason Onset Date Comments Outpatient Testing 11/09/2023 Encounter Details Date Type Department Care Team (Late st Contact Info) Description 11/09/2023 Telephone Nutrition & Weight Management, [place] [address] [place], [place] [phone] Vic Wilkerson, [address] [place], [place] [phone] Outpatient Testing Allergies Active Allergy Reactions Criticality Noted Date [...] FOR MIGRAINE. 10 Tablet 5 09/18/2023 Active Apteiiuyuz-IIKU-Nacj eine 50-325-40 MG Oral Tablet (Fioricet)Indication s:Migraine [...] not taking.Reported on 11/03/2023 Ergocalciferol 1.25 MG (80981 UT) Oral Capsule (Vitamin D2(Drisdol)) Take 1 [...] Severe. 30 Tablet 0 10/24/2023 Active Nystatin 381608 UNIT/GM External Cream APPLY TO AFFECTED AREA [...] Noted Date Diagnosed Date Resolved Date Old [place] (myocardial infarction) 03/01/2023 03/01/2023 Atherosclerosis of [place] co ronary artery without angina pectoris 02/08/2022 [...] malnutrition 09/28/2018 09/23/2021 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/2021 EYE GLASS FRAME POLISHER 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 02/06/2017 05/02/2018 EYE GLASS FRAME POLISHER 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 02/06/2017 07/09/2019 Iron deficiency anemia 06/28/201109/20 Overview: ICD-10 update of inactive term Iron deficiency anemia 06/28/201109/20 Overview: ICD-10 update of inactive term Iron deficiency anemia pat paulino to inadequate dietary iron intake 09/26/2008 3 Secondary hyperparathyroidism, non-renal 03/27/2007 10/24/2023 Infected postoperative seroma 06/02/2003 09/20/2012 PANNICULITIS, [facility] SITE 05/14/2003 09/11/2022 documented as of this encounter (statuses as of 11/09/2023) Immunizations Name Administration Dates Next Due COVID-19 mRNA, LNP-s, No Pre serve, 2-Dose Series ([facility]) 02/16/2021,11/25/2020,11/01/2020 COVID-19, MRNA-LNP, 23-24, P F, 30 MCG/0.3 mL, 12 YRS AND ABOVE, IM ([employer]Comirnat) 04/10/2023 Covid-19, Mrna, Lnp-s, Pf, B ivalent, 30 Mcg, IM, 12 yrs and above (Pfizer) 04/12/2022 Pneumococcal Conjugate Vacci ne, 20-valent ([id number]) 12/10/2021 Pneumococcal Polysaccharide PPV23 (Pneumovax) 07/21/2009 Seasonal [...] encounter Miscellaneous Notes * Telephone Encounter - Mayra Crook RPh - 11/09/2023 1:19 PM EDT Ordered Comprehensive TPN labs in EPIC as per Dr. Boswell. documented in this encounter Plan of Treatment Upcoming Encounters Date Type Department Care Team (Late st Contact Info) Description 11/29/2023 5:00 PM EDT Telemedicine Psychiatry [place] [address] [place] [phone] Alexis Serna MD [address] [place] [facility] [place] [address] 12/04/2023 3:45 PM EDT Office Visit Urology, [facility] [address] [place] [address] Christopher Almonte MD 27 [facility] [address] [place] [address] 04/29/2024 8:40 AM EST Office Visit Neurology [facility] [address] [facility] [address] Aris Mohr MD [address] [facility] [address] 09/16/2024 11:20 AM EDT Office Visit Neurology [facility] [address] [facility] [address] Jodee Austin MD [address] [place] [address] Scheduled Orders Name Type Priority Associated Diagnoses Orde r Schedule ZINC Lab Routine Severe protein-energy malnutrition (HCC) Expected: 11/09/2023 (Approximate), Expires: 11/08/2024 COPPER, SERUM OR PLASMA Lab Routine Severe protein-energy malnutrition (HCC) Expected: 11/09/2023 (Approximate), Expires: 11/08/2024 SELENIUM Lab Routine Severe protein-energy malnutrition (HCC) Expected: 11/09/2023 (Approximate), Expires: 11/08/2024 CHROMIUM, SERUM Lab Routine Severe protein-energy malnutrition (HCC) Expected: 11/09/2023 (Approximate), Expires: 11/08/2024 MANGANESE, BLOOD Lab Routine Severe protein-energy malnutrition (HCC) Expected: 11/09/2023 (Approximate), Expires: 11/08/2024 CBC WITH WBC DIFFERENTIAL Lab Routine Severe protein-energy malnutrition (HCC) Expected: 11/09/2023, Expires: 11/08/2024 FERRITIN Lab Routine Severe protein-energy malnutrition (HCC) Expected: 11/09/2023 (Approximate), Expires: 11/08/2024 IRON Lab Routine Severe protein-energy malnutrition (HCC) Expected: 11/09/2023 (Approximate), Expires: 11/08/2024 IRON SCREEN, INCLUDING TIBC Lab Routine Severe protein-energy malnutrition (HCC) Expected: 11/09/2023 (Approximate), Expires: 11/08/2024 25-HYDROXY VITAMIN D Lab Routine Severe protein-energy malnutrition (HCC) Expected: 11/09/2023 (Approximate), Expires: 11/08/2024 PREALBUMIN Lab Routine Severe protein-energy malnutrition (HCC) Expected: 11/09/2023 (Approximate), Expires: 11/08/2024 PTH Lab Routine Severe protein-energy malnutrition (HCC) Expected: 11/09/2023 (Approximate), Expires: 11/08/2024 FOLIC ACID Lab Routine Severe protein-energy malnutrition (HCC) Expected: 11/09/2023, Expires: 11/08/2024 HEMOGLOBIN A1C Lab Routine Severe protein-energy malnutrition (HCC) Expected: 11/09/2023, Expires: 11/08/2024 VITAMIN B12 Lab Routine Severe protein-energy malnutrition (HCC) Expected: 11/09/2023, Expires: 11/08/2024 VITAMIN B1 (THIAMINE), BLOOD, LC/MS/MS Lab Routine Severe protein-energy malnutrition (HCC) Expected: 11/09/2023, Expires: 11/08/2024 VITAMIN B6, PLASMA Lab Routine Severe protein-energy malnutrition (HCC) Expected: 11/09/2023, Expires: 11/08/2024 VITAMIN C Lab Routine Severe protein-energy malnutrition (HCC) Expected: 11/09/2023, Expires: 11/08/2024 VITAMIN K Lab Routine Severe protein-energy malnutrition (HCC) Expected: 11/09/2023, Expires: 11/08/2024 VITAMIN A (RETINOL) Lab Routine Severe protein-energy malnutrition (HCC) Expected: 11/09/2023, Expires: 11/08/2024 VITAMIN E (TOCOPHEROL) Lab Routine Severe protein-energy malnutrition (HCC) Expected: 11/09/2023, Expires: 11/08/2024 HOMOCYSTEINE Lab Routine Severe protein-energy malnutrition (HCC) Expected: 11/09/2023, Expires: 11/08/2024 METHYLMALONIC ACID, SERUM Lab Routine Severe protein-energy malnutrition (HCC) Expected: 11/09/2023, Expires: 11/08/2024 TRIGLYCERIDES Lab Routine Severe protein-energy malnutrition (HCC) Expected: 11/09/2023 (Approximate), Expires: 11/08/2024 Health Maintenance Due Date Last Done Comments [...] 024, 08/23/2022, 09/20/2021 CKD HGB USE SMARTSET 48059 11/06/202411/06, 11/06/2023, 11/04/2023, Additional history exists CKD PHOS USE SMARTSET 58183 11/06/202410/24, 11/06/2023, 11/05/2023, Additional history exists DTaP,Tdap,and [...] this encounter Medical Devices Implanted Type Area Third Shift Lieutenant Device Identifier Shelf Expiration Date Model / Serial / Lot Stent Axios 20mm - [id number] Implanted:Qty: 1 on 01/04/2021 by Leyda Garcia MD at OR [facility] N/A: Stomach [employer] : ENDOSCOPY 11/20/2021 [id number] / / [id number] documented as of this encounter Visit Diagnoses Diagnosis Severe protein-energy malnutrition (HCC)- Primary Other severe protein-calorie malnutrition documented in this encounter Advance Directives Documents on File Type Date Recorded Patient Cat Scanner Operator Expl anation POLST 01/03/2022 [place] OR [facility] FOR LIFE-SUSTAINING TREATMENT Latest Code Status on [...] Other - (no specific identity) Health Care Cat Scanner Operator (appointed verbally by patient or by statute hierarchy) Rowdy Hogue Sibling Health Care Cat Scanner Operator (appointed verbally by patient or by statute hierarchy) Care Teams Gold Tooler Relationship Specialty Start Date End Date Evelyn Andrews MD [address] [place] [address] [place] [address] PCP - General Family Medicine 05/04/18 documented as of this encounter
--- OUTSIDE RECORDS SUMMARY | 2023-12-07 18:03 | External Medical Summary | Summary of Care ---
Author Name Unknown Organization [facility] Address [address] [place] [address] Phone [phone] Care Team Providers Care Composition Worker Name Role Phone Evelyn Jimenez MD Primary Care Prov ider Reason for Visit * Reason Onset Date Comments Medication Refill 11/16/2023 Encounter Details Date Type Department Care Team (Late st Contact Info) Description 11/16/2023 Refill Family Medicine [address] [phone] Evelyn Jimenez MD [address] [place] [address] [place] [address] Migraine variant; Other idiopathic scoliosis, thoracic region; Chronic midline thoracic back pain Allergies Active Allergy Reactions Criticality Noted Date [...] FOR MIGRAINE. 10 Tablet 5 09/18/2023 Active Pshlsqjfno-ESLI-Jsxv eine 50-325-40 MG Oral Tablet (Fioricet)Indication s:Migraine [...] daily. 90 Patch 3 10/16/2023 Active Nystatin 440839 UNIT/GM External Cream APPLY TO AFFECTED AREA [...] for Pain, Severe. 30 Tablet 11/17/2023 Active Diphenoxylate-Atropi ne 2.5-0.025 MG Oral Tablet (Lomotil)Indications :Migraine variant TAKE ONE TABLET BY MOUTH 4 TIMES DAILY NEEDED FOR DAIRRHEA 60 Tablet 08/09/2023 4 Discontinu ed(Refill) traMADol HCl 50 MG Oral Tablet (Ultram)Indications: Other idiopathic scoliosis, thoracic region,Chronic midline thoracic back pain Take 1 Tablet by mouth daily as needed for Pain, Severe. 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 08/17/2021 10/24/2023 Nephrolithiasis 02/16/2021 01/27/2022 Overview: Cysto 6/1/22 Recurrent major depressive d isorder, in partial remission 07/09/2019 07/13/2023 Overview: Depression is included in the Bipolar condition on pl PFO with atrial septal aneurysm 05/16/2019 06/07/2022 Iron deficiency anemia 04/24/201911/29 Overview: More specific on PL Protein-calorie malnutrition 09/28/2018 09/23/2021 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/2021 CURTAIN STITCHER 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 02/06/2017 05/02/2018 CURTAIN STITCHER 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 02/06/2017 07/09/2019 Iron deficiency anemia 06/28/201109/20 Overview: ICD-10 update of inactive term Iron deficiency anemia 06/28/201109/20 Overview: ICD-10 update of inactive term Iron deficiency anemia pat morrisony to inadequate dietary iron intake 09/26/2008 3 Secondary hyperparathyroidism, non-renal 03/27/2007 10/24/2023 Infected postoperative seroma 06/02/2003 09/20/2012 PANNICULITIS, [facility] SITE 05/14/200311/2022 documented as of this encounter (statuses as of 11/17/2023) Immunizations Name Administration Dates Next Due COVID-19 mRNA, LNP-s, No Pre serve, 2-Dose Series ([employer]) 02/16/2021,11/25/2020,11/01/2020 COVID-19, MRNA-LNP, 23-24, P F, 30 MCG/0.3 mL, 12 YRS AND ABOVE, IM ([employer]-Comirnat) 04/10/2023 Covid-19, Mrna, Lnp-s, Pf, B ivalent, 30 Mcg, IM, 12 yrs and above (Pfizer) 04/12/2022 Pneumococcal Conjugate Vacci ne, 20-valent ([id number]) 12/10/2021 Pneumococcal Polysaccharide PPV23 (Pneumovax) 07/21/2009 Seasonal [...] encounter Miscellaneous Notes * Telephone Encounter - Evelyn Jimenez MD - 11/17/2023 11:29 AM EDTSigned Prescriptions: Disp Refills Diphenoxylate-Atropine 2.5-0.025 MG Oral T*60 Tab*0 Sig: TAKE ONE TABLET BY MOUTH 4 TIMES DAILY NEEDED FOR DAIRRHEA Authorizing Provider: EVELYN JIMENEZ traMADol HCl 50 MG Oral Tablet (Ultram) 30 Tab*0 Sig: Take 1 Tablet by mouth daily as needed for Pain, Severe. Authorizing Provider: TAMIKO JIMENEZ * Telephone Encounter - Magdalena Lucia RPh - 11/17/2023 11:26 AM EDTPending Prescriptions: Disp Refills Diphenoxylate-Atropine 2.5-0.025 MG Oral T*60 Tab*0 Sig: TAKE ONE TABLET BY MOUTH 4 TIMES DAILY NEEDED FOR DAIRRHEA traMADol HCl 50 MG Oral Tablet (Ultram) 30 Tab*0 Sig: Take 1 Tablet by mouth daily as needed for Pain, Severe. * Telephone Encounter - Magdalena Lucia RPh - 11/17/2023 11:24 AM EDT I have reviewed the patients controlled substance dispensing history in the Prescription Drug Monitoring Program in compliance with the [facility] regulations before prescribing a controlled substance. PDMP checked on 11/17/2023. Pending Prescriptions: Disp Refills Diphenoxylate-Atropine 2.5-0.025 MG Oral *60 Tab*0 Sig: TAKE ONE TABLET BY MOUTH 4 TIMES DAILY NEEDED FOR DAIRRHEA traMADol HCl 50 MG Oral Tablet (Ultram) 30 Tab*0 Sig: Take 1 Tablet by mouth daily as needed for Pain, Severe. Last Visit: 10/24/2023 (in office), 04/05/2022 (telemedicine) Next Visit: 11/22/2023 Date medication was last filled: 08/09/23, 10/24/23 Date medication is due for refill: 08/23/23, 11/22/23 Pharmacy: [id number] [address] Is this request for a controlled substance? Yes and Urine Drug Screen Not completed Toxicology results: No results found. However, due to the size of the patient record, not all encounters were searched.Please check Results Review for a complete set of results. Please approve if appropriate. Thanks, Magdalena Lucia PharmD Clinical Pharmacist [facility] ([facility]) [phone] 11/17/2023, 11:24 AM documented in this encounter Plan of Treatment Upcoming Encounters Date Type Department Care Team (Late st Contact Info) Description 11/22/2023 10:20 AM EDT Office Visit Family Medicine [address] [phone] Evelyn Jimenez MD [address] [place] [address] [place] [address] 11/27/2023 10:45 AM EDT Nurse Only Hematology/Oncology Treatment, [address] [address] Nurse, Med [address] [place], [place] [address] [address] 11/29/2023 5:00 PM EDT Telemedicine Psychiatry [place] [address] [place] [phone] Alexis Serna MD [address] [place] [address] 12/04/2023 10:00 AM EDT Nurse Only Hematology/Oncology Treatment, [place] [address] [place] [phone] Nurse, Med [address] [facility] [place] [address] 12/04/2023 3:45 PM EDT Office Visit Urology, [facility] [address] [facility] [address] Christopher Almonte MD [address] [facility] [address] [place] [address] 04/29/2024 8:40 AM EST Office Visit Neurology [facility] [address] [place] [address] Aris Mohr MD [address] [place] [address] 09/16/2024 11:20 AM EDT Office Visit Neurology [facility] [address] [place] [address] Jodee Austin MD [address] [place] [address] Health Maintenance Due Date Last [...] 024, 08/23/2022, 09/20/2021 CKD HGB USE SMARTSET 53985 11/06/202411/06, 11/06/2023, 11/04/2023, Additional history exists CKD PHOS USE SMARTSET 54536 11/06/202410/24, 11/06/2023, 11/05/2023, Additional history exists DTaP,Tdap,and [...] this encounter Medical Devices Implanted Type Area Custom Shop Worker Device Identifier Shelf Expiration Date Model / Serial / Lot Stent Axios 20mm - [id number] Implanted:Qty: 1 on 01/04/2021 by Leyda Garcia MD at OR [facility] N/A: Stomach [employer] : ENDOSCOPY 11/20/2021 [id number] / / [id number] documented as of this encounter Visit Diagnoses Diagnosis Migraine variant Variants of migraine, not elsewhere classified, without mention of intractable migraine without mention of status migrainosus Other idiopathic scoliosis, thoracic region Chronic midline thoracic back pain documented in this encounter Advance Directives Documents on File Type Date Recorded Patient Pug Mill Operator Expl surekha CLANCY 01/03/2022 [place] [facility] FOR LIFE-SUSTAINING TREATMENT * No Code (Latest [...] Other - (no specific identity) Health Care Pug Mill Operator (appointed verbally by patient or by statute hierarchy) Rowdy Hogue Sibling Health Care Pug Mill Operator (appointed verbally by patient or by statute hierarchy) Care Teams Composition Worker Relationship Specialty Start Date End Date Evelyn Jimenez MD [address] [place] [address] [place] [phone] PCP - General Family Medicine 05/04/18 documented as of this encounter
--- OUTSIDE RECORDS SUMMARY | 2023-12-07 18:03 | External Medical Summary ---
Author Name Unknown Address Unknown Organization : Laboratory Report Ordering Provider Test Date Status TONY RAMIREZ 11/22/2023 12:07:35 Final Observation Date Value Abnormality Reference (Units ) Status Zinc, level 11/22/2023 12:07:35 51 Below low normal 6 0-130 (mcg/dL) Final This test was developed and its analytical performance
characteristics have been determined by [email or web address]
[email or web address] It has
not been cleared or approved by the U.S. Food and Drug
Administration. This assay has been validated pursuant
to the CLIA regulations and is used for clinical
purposes.

Test Performed at:
[facility] [place]
[address] [facility]
[place] [address]
Armando Chanel M.D., Ph.D.,Director of Laboratories Performing Location
--- OUTSIDE RECORDS SUMMARY | 2023-12-07 18:03 | External Medical Summary | Summary of Care ---
Author Name Unknown Organization [facility] Address [address] [place] [address] Phone [phone] Care Team Providers Care Supervisor Quilting Name Role Phone Evelyn Andrews MD Primary Care Prov ider Reason for Visit * Reason Comments Medication Management Encounter Details Date Type Department Care Team (Late st Contact Info) Description 11/16/2023 Documentation Home [facility] [place] [address] [place] [address] [address] [phone] Allergies Active Allergy Reactions Criticality Noted Date Comments Amoxicillin Edema airway High 01/22/2003 Oxybutynin 03/25/2023 Mouth ulcers Sulfa Antibiotics Edema airway High 08/15/2006 documented as of this encounter (statuses as of 11/16/2023) Medications Medication Sig Dispensed Refills Start Date [...] DAILY NEEDED FOR DAIRRHEA 60 Tablet 08/09/2023 Active Promethazine HCl 25 MG Oral Tablet (Phenergan)Indication s:Nausea Take 1 Tablet by mouth every 8 hours as needed for Nausea. 30 Tablet 3 08/15/2023 Active Rizatriptan Benzoate 10 MG Oral Tablet (Maxalt)Indications:M igraine variant TAKE 1 TAB BY MOUTH DAILY NEEDED FOR MIGRAINE. 10 Tablet 5 09/18/2023 Active Nvkijtlylk-BIZD-Xyhqg ine 50-325-40 MG Oral Tablet (Fioricet)Indications :Migraine [...] needed for Pain, Severe. 30 Tablet 10/24/2023 Active Nystatin 581326 UNIT/GM External Cream APPLY TO AFFECTED AREA TWICE A DAY 30 g 2 11/02/2023 Active Ondansetron 4 MG Oral Tablet Disintegrating (Zofran)Indications:I ntractable vomiting with nausea PLACE 1 TABLET ON TONGUE EVERY 8 HOURS NEEDED FOR NAUSEA. 90 Tablet 1 11/02/2023 Active Mirtazapine 45 MG Oral Tablet (Remeron)Indications: Recurrent major depressive disorder, in partial remission ([facility]) Take 1 Tablet by mouth at bedtime. 30 Tablet 3 11/03/2023 Active QUEtiapine Fumarate 50 MG Oral Tablet (SEROquel) Take 1 Tablet by mouth at bedtime. Active OLANZapine 5 MG Oral Tablet Disintegrating (zyPREXA zyDIS) Place 1 Tablet on tongue in the morning. 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 02/06/2017 05/02/2018 [employer] ME[employer] 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 02/06/2017 07/09/2019 Iron deficiency anemia 06/28/201109/20 Overview: ICD-10 update of inactive term Iron deficiency anemia 06/28/201109/20 Overview: ICD-10 update of inactive term Iron deficiency anemia pat paulino to inadequate dietary iron intake 09/26/2008 3 Secondary hyperparathyroidism, non-renal 03/27/2007 10/24/2023 Infected postoperative seroma 06/02/2003 09/20/2012 PANNICULITIS, UNSP SITE 05/14/200311/2022 documented as of this encounter (statuses as of 11/16/2023) Immunizations Name Administration Dates Next Due COVID-19 mRNA, LNP-s, No Pre serve, 2-Dose Series ([employer]) 02/16/2021,11/25/2020,11/01/2020 COVID-19, MRNA-LNP, 23-24, P F, 30 MCG/0.3 mL, 12 YRS AND ABOVE, IM ([employer]) 04/10/2023 Covid-19, Mrna, Lnp-s, Pf, B ivalent, 30 Mcg, IM, 12 yrs and above ([employer]) 04/12/2022 Pneumococcal Conjugate Vacci ne, 20-valent ([id number]) 12/10/2021 Pneumococcal Polysaccharide PPV23 (Pneumovax) 07/21/2009 Seasonal [...] this encounter Progress Notes * Mayra Crook, [facility] - 11/16/2023 5:15 PM EDT [facility] TPN Documentation Patient Phone Numbers mobile [phone] Results for orders placed or performed during [...] Remove Sodium Chloride and add 84 mEq K acetate per Day. Sending 11/16/23 to cover TPN through 11/23/23. Next weekly labs 11/22/23: CMP, Magnesium, Phosphorus, and ionized Calcium. Next Comprehensive labs 11/22/23. Next nutrition appointment: TBD Mayra Crook RPh 11/16/2023 5:16 PM documented in this encounter Plan of Treatment Upcoming Encounters Date Type Department Care Team (Late st Contact Info) Description 11/22/2023 10:20 AM EDT Office Visit [address] [phone] Evelyn Andrews MD [address] [place] [address] [place] [address] 11/27/2023 10:45 AM EDT Nurse Only Hematology/Oncology Treatment, [place] [address] [place] [phone] Nurse, Med 4 [address] [facility] [place] [address] 11/29/2023 5:00 PM EDT Telemedicine Psychiatry [facility] [address] [place] [address] Alexis Serna MD [address] [place] [address] 12/04/2023 10:00 AM EDT Nurse Only Hematology/Oncology Treatment, [place] [address] [place] [address] Nurse, Med 4 [address] [facility] [place] [address] 12/04/2023 3:45 PM EDT Office Visit Urology, [facility] [address] [facility] [place] [address] Christopher Almonte MD [address] [facility] [address] [place] [address] 04/29/2024 8:40 AM EST Office Visit Neurology [facility] [address] [facility] [place] [address] Aris Mohr MD [address] [facility] [place] [address] 09/16/2024 11:20 AM EDT Office Visit Neurology [facility] [address] [facility] [place] [address] Jodee Austin MD [address] [place] [address] Health Maintenance Due Date Last [...] 024, 08/23/2022, 09/20/2021 CKD HGB USE SMARTSET 97115 11/06/202411/06, 11/06/2023, 11/04/2023, Additional history exists CKD PHOS USE SMARTSET 91944 11/06/202410/24, 11/06/2023, 11/05/2023, Additional history exists DTaP,Tdap,and [...] this encounter Medical Devices Implanted Type Area Crm Specialist Device Identifier Shelf Expiration Date Model / Serial / Lot Stent Axios 20mm - [id number] Implanted:Qty: 1 on 01/04/2021 by Leyda Garcia MD at OR [facility] N/A: Stomach [employer] : ENDOSCOPY 11/20/2021 [id number] / / [id number] documented as of this encounter Advance Directives Documents on File Type Date Recorded Patient Roof Cement And Paint Maker Expl anation POLST 01/03/2022 [place] OR [facility] FOR [...] Other - (no specific identity) Health Care Roof Cement And Paint Maker (appointed verbally by patient or by statute hierarchy) [place] [facility] Care Roof Cement And Paint Maker (appointed verbally by patient or by statute hierarchy) Care Teams Supervisor Quilting Relationship Specialty Start Date End Date Evelyn Andrews MD [address] [place] [address] [place] [phone] PCP - General Family Medicine 05/04/18 documented as of this encounter
--- OUTSIDE RECORDS SUMMARY | 2023-12-07 18:03 | External Medical Summary | Summary of Care ---
Author Name Unknown Organization [facility] Address [address] [place] [address] Phone [phone] Care Team Providers Care Sales Consultant Residential Manager Name Role Phone Evelyn Andrews MD Primary Care Prov ider Reason for Visit * Reason Onset Date Comments Medication Refill 11/13/2023 Encounter Details Date Type Department Care Team (Late st Contact Info) Description 11/13/2023 Refill [facility] [place] [address] [place] [address] Alexis Marti MD [address] [place] [address] Allergies Active Allergy Reactions Criticality Noted Date Comments Amoxicillin Edema airway High 01/22/2003 Oxybutynin 03/25/2023 Mouth ulcers Sulfa Antibiotics Edema airway High 08/15/2006 documented as of this encounter (statuses as of 11/13/2023) Medications Medication Sig Dispensed Refills Start Date [...] FOR MIGRAINE. 10 Tablet 5 09/18/2023 Active Hchhgdytwu-VAEU-Yuny eine 50-325-40 MG Oral Tablet (Fioricet)Indication s:Migraine [...] Pain, Severe. 30 Tablet 10/24/2023 Active Nystatin 550931 UNIT/GM External Cream APPLY TO AFFECTED AREA [...] the morning. 30 Tablet 5 11/13/2023 Active OLANZapine 5 MG Oral Tablet Disintegrating (zyPREXA zyDIS) Place 1 Tablet on tongue in the morning. 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 02/06/2017 05/02/2018 WOOD FLOUR MILLER 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 02/06/2017 07/09/2019 Iron deficiency anemia 06/28/201109/20 Overview: ICD-10 update of inactive term Iron deficiency anemia 06/28/201109/20 Overview: ICD-10 update of inactive term Iron deficiency anemia pat paulino to inadequate dietary iron intake 09/26/2008 3 Secondary hyperparathyroidism, non-renal 03/27/2007 10/24/2023 Infected postoperative seroma 06/02/2003 09/20/2012 PANNICULITIS, [facility] SITE 05/14/200311/2022 documented as of this encounter (statuses as of 11/13/2023) Immunizations Name Administration Dates Next Due COVID-19 mRNA, LNP-s, No Pre serve, 2-Dose Series ([employer]) 02/16/2021,11/25/2020,11/01/2020 COVID-19, MRNA-LNP, 23-24, P F, 30 MCG/0.3 mL, 12 YRS AND ABOVE, IM ([employer]) 04/10/2023 Covid-19, Mrna, Lnp-s, Pf, B ivalent, 30 Mcg, IM, 12 yrs and above ([employer]) 04/12/2022 Pneumococcal Conjugate Vacci ne, 20-valent (Xysvuti00) 12/10/2021 Pneumococcal Polysaccharide PPV23 (Pneumovax) 07/21/2009 Seasonal [...] encounter Miscellaneous Notes * Telephone Encounter - Alexis Marti MD - 11/13/2023 7:05 PM EDTSigned Prescriptions: Disp Refills OLANZapine 5 MG Oral Tablet Disintegrating*30 Tab*5 Sig: Place 1 Tablet on tongue in the morning. Authorizing Provider: ALEXIS MARTI * Telephone Encounter - Jud Lopez LPN - 11/13/2023 3:09 PM EDT Pharmacy requesting refill on olanzepine. Medication was last filled on 07/04/2023 with 5 refills. Patient last seen on 10/30/2023 with return appointment scheduled for 11/29/2023. Patient had 0 cancelled appointments and 0 NO SHOW appointments. documented in this encounter Plan of Treatment Upcoming Encounters Date Type Department Care Team (Late st Contact Info) Description 11/21/2023 11:45 AM EDT Nurse Only Hematology/Oncology Treatment, [address] [place] [phone] Nurse, Med 4 [address] [place] [address] 11/27/2023 10:45 AM EDT Nurse Only Hematology/Oncology Treatment, [address] [phone] Nurse, Med 4 [address] [place] [address] 11/29/2023 5:00 PM EDT Telemedicine Psychiatry [facility] [address] [place] [address] Alexis Marti MD [address] [place] [facility] [place] [address] 12/04/2023 10:00 AM EDT Nurse Only Hematology/Oncology Treatment, [address] [phone] Nurse, Med 4 [address] [place] [address] 12/04/2023 3:45 PM EDT Office Visit [facility] [address] [place] [address] Christopher Almonte MD [address] [facility] [address] [place] [address] 04/29/2024 8:40 AM EST Office Visit Neurology [facility] [address] [place] [address] Aris oMhr MD [address] [facility] [place] [address] 09/16/2024 11:20 AM EDT Office Visit Neurology [facility] [address] [facility] [place] [address] Jodee Austin MD [address] [place] [address] Health Maintenance Due Date Last Done Comments [...] 024, 08/23/2022, 09/20/2021 CKD HGB USE SMARTSET 78859 11/06/202411/06, 11/06/2023, 11/04/2023, Additional history exists CKD PHOS USE SMARTSET 39768 11/06/202410/24, 11/06/2023, 11/05/2023, Additional history exists DTaP,Tdap,and [...] this encounter Medical Devices Implanted Type Area Bell Tier Device Identifier Shelf Expiration Date Model / Serial / Lot Stent Axios 20mm - [id number] Implanted:Qty: 1 on 01/04/2021 by Leyda Garcia MD at OR [facility] N/A: Stomach [employer] : ENDOSCOPY 11/20/2021 [id number] / / [id number] documented as of this encounter Advance Directives Documents on File Type Date Recorded Patient Tank Riveter Expl anation POLST 01/03/2022 [place] OR [facility] FOR LIFE-SUSTAINING TREATMENT * No Code [...] Other - (no specific identity) Health Care Tank Riveter (appointed verbally by patient or by statute hierarchy) Rowdy Hogue Sibling Health Care Tank Riveter (appointed verbally by patient or by statute hierarchy) Care Teams Sales Consultant Residential Manager Relationship Specialty Start Date End Date Evelyn Andrews MD [address] [place] [address] [place] [phone] PCP - General Family Medicine 05/04/18 documented as of this encounter
--- OUTSIDE RECORDS SUMMARY | 2023-12-07 18:04 | External Medical Summary | Summary of Care ---
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 Role Phone Evelyn Andrews MD Primary Care Prov ider Reason for Visit * Auth/Cert Specialty Diagnoses / Procedures Referred By Francisco mathew Referred To Contact Diagnoses FTT (failure to thrive) in adult FTT Alen Larsen MD [address] [place], [place] [address] [place] [address] [address] Referral ID Status Reason Start Date Expiration Date Visits Re quested Visits Authorized [id number] Encounter Details Date Type Department Care Team (Latest Contact Info) Description 11/03/2023 4:58 PM EDT - 11/07/2023 11:42 AM EDT Hospital Encounter 5A [facility] 5th Floor [address] [place] [id number] Alen Larsen MD [address] [place], [place] [address] [place] [address] Isaiah Rodriguez MD [address] [place], [place] [address] [address] Juan Zaragoza DO [address] [place], [place] [address]ist [place] [phone] Various: CDIQDC,KRAANDRADE Discharge Disposition: Home - Self Care Allergies Active Allergy Reactions Criticality Noted Date Comments Amoxicillin Edema airway High 01/22/2003 Oxybutynin 03/25/2023 Mouth ulcers Sulfa Antibiotics Edema airway High 08/15/2006 documented as of this encounter (statuses as of 11/07/2023) Medications Medication Sig Dispensed Refills Start Date [...] FOR MIGRAINE. 10 Tablet 5 09/18/2023 Active Wvlexqfgth-ARUR-Bxsf eine 50-325-40 MG Oral Tablet (Fioricet)Indication s:Migraine [...] not taking.Reported on 11/03/2023 Ergocalciferol 1.25 MG (61651 UT) Oral Capsule (Vitamin D2(Drisdol)) Take 1 [...] Severe. 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 02/06/2017 07/09/2019 Iron deficiency anemia 06/28/201109/20 Overview: ICD-10 update of inactive term Iron deficiency anemia 06/28/201109/20 Overview: ICD-10 update of inactive term Iron deficiency anemia pat paulino to inadequate dietary iron intake 09/26/2008 3 Secondary hyperparathyroidism, non-renal 03/27/2007 10/24/2023 Infected postoperative seroma 06/02/2003 09/20/2012 PANNICULITIS, [facility] SITE 05/14/20030 11/2022 documented as of this encounter (statuses as of 11/07/2023) Immunizations Name Administration Dates Next Due COVID-19 mRNA, LNP-s, No Pre serve, 2-Dose Series (ChemoCentryx) 02/16/2021,11/25/2020,11/01/2020 COVID-19, MRNA-LNP, 23-24, P F, 30 MCG/0.3 mL, 12 YRS AND ABOVE, IM (Audioms-Comirnat) 04/10/2023 Covid-19, Mrna, Lnp-s, Pf, B ivalent, 30 Mcg, IM, 12 yrs and above (Pfizer) 04/12/2022 Pneumococcal Conjugate Vacci ne, 20-valent ([id number]) 12/10/2021 Pneumococcal Polysaccharide PPV23 (Pneumovax) 07/21/2009 Seasonal [...] Sign Reading Time Taken Comments Blood Pressure 121/73 11/07/2023 7:16 AM EDT Pulse 106 11/07/2023 7:56 AM EDT Temperature 36.4 C (97.5 F) 11/07/2023 7:16 AM ED T Respiratory Rate 18 11/07/2023 7:16 AM EDT Oxygen Saturation 95% 11/07/2023 7:16 AM EDT Inhaled Oxygen Concentration - - Weight 40.5 kg (89 lb 3.2 oz) 11/07/2023 6:19 AM EDT Height 147.3 cm (4' 10") 11/03/2023 5:00 PM EDT Body Mass Index 18.64 11/03/2023 5:00 PM EDT documented in this [...] No 11/03/2023 documented as of this encounter Discharge Summaries * Juan Zaragoza DO - 11/07/2023 10:04 AM EDT [address] [address] Admission Date: 11/03/2023 Discharge Date: 11/07/2023 RECOMMENDED TO DO FOR NEXT PROVIDER(S): Follow-up with Dr. Wilkerson for TPN management REASON(S) FOR MEDICATION CHANGE(S): DISPOSITION ON DISCHARGE: home Active Hospital Problems Diagnosis *Principal Diagnosis - Failure to thrive in adult Tobacco abuse MDD (major depressive disorder), recurrent severe, without psychosis (HCC) Bipolar disorder (HCC) Copper deficiency myeloneuropathy (HCC) Severe protein-energy malnutrition (HCC) Status post bariatric surgery Resolved Hospital Problems No resolved problems to display. ADMISSION HISTORY & PHYSICAL EXAM (focused): per Dr Rodriguez Patient with PMHX: tobacco use, gastric bypass in 2000, nephrectomy, hospitalized in September 2023 forTPN initiation and had refeeding complications and at time of d/c decided she did not want to be onhome TPN, she continues to lose weight, poor appetite, eats about once a day. She would like to restart TPN. She has agreed to TPN 4 days/week. She was sent in as a direct admission at the direction of Dr. Wilkerson to initiate TPN. Reports she recently finished Vancomycin and Macrobid for UTI. She still having some dysuria and left sided back pain- unsure if flank pain or coming from her spine. Susceptibility data from last 90 days. Collected Specimen Info Organism Ampicillin Nitrofurantoin Tetracycline Vancomycin 10/17/23 Urine, Clean Catch Enterococcus species R I R S She denies fever/chills, cough/cold sx, chest pain, sob, abdominal pain, N/V. +intermittent nausea. + leg swelling. Reports she had a trip and fall today. Denies injury. No LOC, syncope, near syncope. HOSPITAL COURSE (focused): 58-year-old female direct admit at the direction of Dr. Wilkerson to re-initiate TPN therapy and monitor for refeeding syndrome. Patient was hospitalized back in September of 2023 for TPN initiation and monitoring for refeeding syndrome complication but patient had decided to discontinue TPN at that time prior to discharge. PMH includes tobacco use, gastric bypass in 2000, nephrectomy, severe protein energy malnutrition, bipolar disorder, depression. TPN was re-initiated during this admission. Labs andelectrolytes are within normal limits. Did discuss with Dr. Wilkerson over the phone on 11/05. He states plan is for patient to get TPN 4 days a week with re-evaluation in [address] outpatient orders in for patient's TPN. Operations & Procedures: none Complications: none significant Significant Lab and Imaging Results: Results for orders placed or performed during the hospital encounter of 11/03/23 CBC Result Value Ref Range WBC 8.19 4.00 - 10.80 K/uL RBC 3.80 3.85 - 5.15 M/uL HGB 11.4 (L) 12.0 - 15.3 g/dL HCT 38.5 36.0 - 45.2 % MCV 101.3 81.5 - 97.5 fL MCH 30.0 27.0 - 34.0 pg MCHC 29.6 32.0 - 36.0 g/dL RDW 17.7 11.5 - 15.5 % PLT 159 140 - 400 K/uL MPV 12.1 6.6 - 11.1 fL nRBCs 0 <=0 /100 WBCs BASIC METABOLIC PANEL Result Value Ref Range BUN 29 (H) 6 - 20 mg/dL Creatinine 1.4 (H) 0.5 - 1.0 mg/dL Estimated Glomerular Filtration Rate 45 (L) >=60 mL/min Sodium 138 135 - 146 mmol/L Potassium 5.0 3.5 - 5.1 mmol/L Chloride 116 (H) 98 - 107 mmol/L CO2 11 (L) 22 - 32 mmol/L Anion Gap 11 7 - 15 mmol/L Glucose 85 70 - 120 mg/dL Calcium 8.5 8.4 - 10.2 mg/dL PHOSPHORUS Result Value Ref Range Phosphorus 5.3 (H) 2.5 - 4.8 mg/dL MAGNESIUM Result Value Ref Range Magnesium 2.0 1.5 - 2.6 mg/dL URINALYSIS, REFLEX TO MICROSCOPIC Result Value Ref Range Color, Urine Yellow Light Yellow, Yellow, Dark Yellow Clarity, Urine Clear Clear Glucose, Urine Negative Negative mg/dL Bilirubin, Urine Negative Negative Ketone, Urine Negative Negative mg/dL Specific [place], Urine 1.020 1.003 - 1.030 Blood, Urine Trace (A) Negative pH, Urine 6.0 5.0 - 7.5 Units Protein, Urine Trace (A) Negative mg/dL Urobilinogen, Urine 0.2 0.2, 1.0 mg/dL Nitrite, Urine Negative Negative Esterase, Urine Negative Negative CULTURE, URINE, QUANTITATIVE Specimen: Urine, Catheter Result Value Ref Range Culture Growth No significant growth HEPATIC FUNCTION PANEL Result Value Ref Range Albumin 3.8 3.8 - 5.0 g/dL AST 19 10 - 35 U/L Alkaline Phosphatase 261 (H) 35 - 130 U/L ALT 14 10 - 35 U/L Bilirubin, Total <0.2 <=1.2 mg/dL Bilirubin, Direct <0.2 0.0 - 0.3 mg/dL Protein 6.8 6.0 - 8.3 g/dL MAGNESIUM Result Value Ref Range Magnesium 2.0 1.5 - 2.6 mg/dL MICROSCOPIC EXAM, URINE Result Value Ref Range RBC, Urine 0-2 0 - 2 /HPF WBC, Urine 0-2 0 - 2 /HPF Bacteria, Urine 0-25 0 - 25 /HPF CALCIUM, IONIZED Result Value Ref Range Calcium, Ionized 1.21 1.13 - 1.32 mmol/L CBC Result Value Ref Range WBC 7.23 4.00 - 10.80 K/uL RBC 3.23 3.85 - 5.15 M/uL HGB 9.6 (L) 12.0 - 15.3 g/dL HCT 32.0 (L) 36.0 - 45.2 % MCV 99.1 81.5 - 97.5 fL MCH 29.7 27.0 - 34.0 pg MCHC 30.0 32.0 - 36.0 g/dL RDW 17.3 11.5 - 15.5 % PLT 137 (L) 140 - 400 K/uL MPV 12.5 6.6 - 11.1 fL nRBCs 0 <=0 /100 WBCs BASIC METABOLIC PANEL Result Value Ref Range BUN 30 (H) 6 - 20 mg/dL Creatinine 1.2 (H) 0.5 - 1.0 mg/dL Estimated Glomerular Filtration Rate 50 (L) >=60 mL/min Sodium 134 (L) 135 - 146 mmol/L Potassium 4.8 3.5 - 5.1 mmol/L Chloride 111 (H) 98 - 107 mmol/L CO2 11 (L) 22 - 32 mmol/L Anion Gap 12 7 - 15 mmol/L Glucose 136 (H) 70 - 120 mg/dL Calcium 7.8 (L) 8.4 - 10.2 mg/dL PHOSPHORUS Result Value Ref Range Phosphorus 2.9 2.5 - 4.8 mg/dL MAGNESIUM Result Value Ref Range Magnesium 1.7 1.5 - 2.6 mg/dL BASIC METABOLIC PANEL Result Value Ref Range BUN 34 (H) 6 - 20 mg/dL Creatinine 1.1 (H) 0.5 - 1.0 mg/dL Estimated Glomerular Filtration Rate 56 (L) >=60 mL/min Sodium 135 135 - 146 mmol/L Potassium 4.1 3.5 - 5.1 mmol/L Chloride 110 (H) 98 - 107 mmol/L CO2 13 (L) 22 - 32 mmol/L Anion Gap 12 7 - 15 mmol/L Glucose 154 (H) 70 - 120 mg/dL Calcium 7.8 (L) 8.4 - 10.2 mg/dL PHOSPHORUS Result Value Ref Range Phosphorus 2.3 (L) 2.5 - 4.8 mg/dL MAGNESIUM Result Value Ref Range Magnesium 2.0 1.5 - 2.6 mg/dL BASIC METABOLIC PANEL Result Value Ref Range BUN 40 (H) 6 - 20 mg/dL Creatinine 1.0 0.5 - 1.0 mg/dL Estimated Glomerular Filtration Rate 64 >=60 mL/min Sodium 139 135 - 146 mmol/L Potassium 4.5 3.5 - 5.1 mmol/L Chloride 115 (H) 98 - 107 mmol/L CO2 18 (L) 22 - 32 mmol/L Anion Gap 6 (L) 7 - 15 mmol/L Glucose 139 (H) 70 - 120 mg/dL Calcium 8.5 8.4 - 10.2 mg/dL PHOSPHORUS Result Value Ref Range Phosphorus 2.5 2.5 - 4.8 mg/dL MAGNESIUM Result Value Ref Range Magnesium 2.1 1.5 - 2.6 mg/dL CALCIUM, IONIZED Result Value Ref Range Calcium, Ionized 1.28 1.13 - 1.32 mmol/L BASIC METABOLIC PANEL Result Value Ref Range BUN 47 (H) 6 - 20 mg/dL Creatinine 1.3 (H) 0.5 - 1.0 mg/dL Estimated Glomerular Filtration Rate 49 (L) >=60 mL/min Sodium 142 135 - 146 mmol/L Potassium 4.1 3.5 - 5.1 mmol/L Chloride 116 (H) 98 - 107 mmol/L CO2 16 (L) 22 - 32 mmol/L Anion Gap 10 7 - 15 mmol/L Glucose 89 70 - 120 mg/dL Calcium 8.5 8.4 - 10.2 mg/dL PHOSPHORUS Result Value Ref Range Phosphorus 2.7 2.5 - 4.8 mg/dL MAGNESIUM Result Value Ref Range Magnesium 2.1 1.5 - 2.6 mg/dL CBC Result Value Ref Range WBC 6.87 4.00 - 10.80 K/uL RBC 3.12 3.85 - 5.15 M/uL HGB 9.5 (L) 12.0 - 15.3 g/dL HCT 30.7 (L) 36.0 - 45.2 % MCV 98.4 81.5 - 97.5 fL MCH 30.4 27.0 - 34.0 pg MCHC 30.9 32.0 - 36.0 g/dL RDW 18.3 11.5 - 15.5 % PLT 146 140 - 400 K/uL MPV 12.6 6.6 - 11.1 fL nRBCs 0 <=0 /100 WBCs CALCIUM, IONIZED Result Value Ref Range Calcium, Ionized 1.29 1.13 - 1.32 mmol/L BASIC METABOLIC PANEL Result Value Ref Range BUN 48 (H) 6 - 20 mg/dL Creatinine 1.2 (H) 0.5 - 1.0 mg/dL Estimated Glomerular Filtration Rate 54 (L) >=60 mL/min Sodium 143 135 - 146 mmol/L Potassium 4.5 3.5 - 5.1 mmol/L Chloride 114 (H) 98 - 107 mmol/L CO2 17 (L) 22 - 32 mmol/L Anion Gap 12 7 - 15 mmol/L Glucose 127 (H) 70 - 120 mg/dL Calcium 8.7 8.4 - 10.2 mg/dL PHOSPHORUS Result Value Ref Range Phosphorus 3.1 2.5 - 4.8 mg/dL MAGNESIUM Result Value Ref Range Magnesium 2.3 1.5 - 2.6 mg/dL CBC Result Value Ref Range WBC 6.35 4.00 - 10.80 K/uL RBC 2.96 3.85 - 5.15 M/uL HGB 9.0 (L) 12.0 - 15.3 g/dL HCT 29.1 (L) 36.0 - 45.2 % MCV 98.3 81.5 - 97.5 fL MCH 30.4 27.0 - 34.0 pg MCHC 30.9 32.0 - 36.0 g/dL RDW 18.4 11.5 - 15.5 % PLT 150 140 - 400 K/uL MPV 12.3 6.6 - 11.1 fL nRBCs 0 <=0 /100 WBCs CALCIUM, IONIZED Result Value Ref Range Calcium, Ionized 1.27 1.13 - 1.32 mmol/L BASIC METABOLIC PANEL Result Value Ref Range [...] mg/dL Calcium 8.7 8.4 - 10.2 mg/dL MAGNESIUM Result Value Ref Range Magnesium 2.0 1.5 - 2.6 mg/dL PHOSPHORUS Result Value Ref Range Phosphorus 3.6 2.5 - 4.8 mg/dL *Note: Due to a large number of results and/or encounters for the requested time period, some results have not been displayed. A complete set of results can be found in Results Review. XR CHEST 1 VIEW Final Result PROCEDURE INFORMATION: Exam: XR Chest Exam date and time: 11/03/2023 5:59 PM Age: 58 years old Clinical indication: Other: F/u. No active chest complaints. ; Additional info: F/u pna last month TECHNIQUE: Imaging protocol: Radiologic exam of the chest. Views: 1 view. COMPARISON: DX XR CHEST 1 VIEW 10/09/2023 10:38 AM FINDINGS: Lungs: Hyperaeration. No consolidation. Pleural spaces: Unremarkable. No pleural effusion. No pneumothorax. Heart/Mediastinum: Stable size and configuration. MediPort in place. Bones/joints: Unchanged. Other: Right upper quadrant clips. IMPRESSION IMPRESSION: No evidence of acute intrathoracic pathology. THIS DOCUMENT HAS BEEN ELECTRONICALLY SIGNED BY SIMEON DAVIES MD Results Pending at Discharge: Lab Results Pending at Discharge: TRIGLYCERIDES Routine Hepatic Function Panel Routine BASIC METABOLIC PANEL Routine MAGNESIUM Routine PHOSPHORUS Routine CBC Routine MEDICATION UPDATES AT DISCHARGE CONTINUE taking these medications INSTRUCTIONS ALPRAZolam 0.25 MG Tablet Commonly known as: xaNAX Notes to patient: Used to treat anxiety and panic attacks Take 1 Tablet by mouth at bedtime as needed for Sleep. busPIRone 5 MG Tablet Commonly known as: Buspar Notes to patient: Used to treat anxiety Take 1 Tablet by mouth in the morning and 1 Tablet at noon and 1 Tablet before bedtime. cwhfgbmemn-psijowbgjdddx-ohlcdufk 50-325-40 mg per tab Commonly known as: Fioricet Notes to patient: Used to treat tension headaches TAKE ONE TABLET EVERY 6 HOURS NEEDED FOR PAIN Calcitriol 0.25 MCG Capsule Commonly known as: Rocaltrol Notes to patient: Used to control low blood calcium levels and treat high parathyroid hormone levels 1 CAPSULE BY MOUTH MONDAYS/WEDNESDAYS/FRIDAYS [facility] Acetaminophen Ex St 500 MG Tablet Generic drug: Acetaminophen Notes to patient: Used to ease pain and fever TAKE 1 CAPSULE BY MOUTH EVERY 4 HOURS dicyclomine 20 MG Tablet Commonly known as: Bentyl Notes to patient: Used to treat GI (gastrointestinal) spasms and irritable bowel syndrome TAKE 1 TABLET BY MOUTH IN THE AM, AT NOON, IN THE PM AND AT BEDTIME NEEDED FOR ABDOMINAL PAIN Strength: 20 mg diphenoxylate-atropine 2.5-0.025 mg per tab 2.5-0.025 MG Tablet Commonly known as: Lomotil Notes to patient: Used to treat diarrhea TAKE ONE TABLET BY MOUTH 4 TIMES DAILY NEEDED FOR DAIRRHEA DULoxetine 60 MG Cpep Commonly known as: Cymbalta Notes to patient: Used to treat depression, anxiety, and fibromyalgia. Used to ease long-term pain problems and help painful nerve diseases and diabetic nerve problems. Take 2 Capsules by mouth in the morning. Ergocalciferol (Vitamin D2) 1.25 MG (92883 UT) Capsule Commonly known as: Drisdol Notes to patient: Used to treat poor parathyroid function and prevent low phosphate levels Take 1 Capsule by mouth once a day on Monday, Monday, and Monday only. FeroSul 325 (65 Fe) MG Tablet Generic drug: Ferrous Sulfate Notes to patient: Used to treat and prevent iron deficiency anemia Take 1 Tablet by mouth daily at noon. guaiFENesin-Codeine 100-10 MG/5ML syrup Commonly known as: Robitussin AC Notes to patient: Used to thin mucus so it can be taken from the body by coughing Take 5 mL by mouth every 4 hours as needed for Cough. Lidocaine 4 % Ptch Commonly known as: Aspercreme Notes to patient: Used to relieve nerve pain. Place 1 Patch over 12 hours topically on the skin daily. Mirtazapine 45 MG Tablet Commonly known as: Remeron Notes to patient: Used to treat depression Take 1 Tablet by mouth at bedtime. nystatin [id number] UNIT/GM cream Notes to patient: Used to treat fungal infections of the skin APPLY TO AFFECTED AREA TWICE A DAY OLANZapine ODT 5 MG Tbdp Commonly known as: zyPREXA zyDIS Notes to patient: Used to treat depression, bipolar disorder, and schizophrenia Place 1 Tablet on tongue in the morning. omeprazole 20 MG Cpdr Commonly known as: PriLOSEC Notes to patient: Used to treat or prevent GI (gastrointestinal) ulcers, gastroesophageal reflux disease (GERD; acid reflux), heartburn, syndromes caused by lots of stomach acid, and ulcers of the esophagus TAKE 1 CAPSULE BY MOUTH EVERY DAY IN THE MORNING ondansetron ODT 4 MG Tbdp Commonly known as: Zofran Notes to patient: Used to treat or prevent nausea/vomiting PLACE 1 TABLET ON TONGUE EVERY 8 HOURS NEEDED FOR NAUSEA. Oyster Shell Calcium 500 MG Tablet Commonly known as: Oysco 500 Notes to patient: Used to lower high phosphate levels Take 2 Tabs by mouth daily. Pregabalin 25 MG Capsule Commonly known as: Lyrica Notes to patient: Used to treat painful nerve diseases, fibromyalgia, and help control certain kinds of seizures Take 1 Capsule by mouth in the morning and 1 Capsule before bedtime. promethazine 25 MG Tablet Commonly known as: Phenergan Notes to patient: Used to ease allergy signs, help motion sickness, ease pain, and prevent nausea and vomiting Take 1 Tablet by mouth every 8 hours as needed for Nausea. Rizatriptan 10 MG Tablet Commonly known as: Maxalt Notes to patient: Used to treat migraine headaches TAKE 1 TAB BY MOUTH DAILY NEEDED FOR MIGRAINE. SEROquel 50 MG Tablet Generic drug: QUEtiapine Notes to patient: Used to treat bipolar disorder, schizophrenia, and depression Take 1 Tablet by mouth at bedtime. sodium bicarbonate 650 MG Tablet Notes to patient: Used to treat heartburn and upset stomach, and to reduce the acid content in the body associated with kidney disease, and may help keep kidney disease from worsening. Take 2 Tablets by mouth in the morning and 2 Tablets before bedtime. SUMAtriptan 50 MG Tablet Commonly known as: Imitrex Notes to patient: Used to treat migraine and cluster headaches MAX OF 2 TABS PER ATTACK AND NO MORE THAN 3 X WEEKLY traMADol 50 MG Tablet Commonly known as: Ultram Notes to patient: Used to ease pain Take 1 Tablet by mouth daily as needed for Pain, Severe. vitamin b-12 1000 MCG/ML injection Commonly known as: Cyanocobalamin Notes to patient: Used to help with some kinds of anemia and to treat or prevent low vitamin B12 one injection monthly Vitamin C 250 MG Tablet Commonly known as: Ascorbic Acid Notes to patient: Used to treat or prevent vitamin C deficiency and treat scurvy Take 1 Tablet by mouth daily at noon. Vitamin E 400 UNIT Capsule Commonly known as: Aquasol E Notes to patient: Used to help growth and good health Take 1 Capsule by mouth in the morning. zinc sulfate 220 MG Capsule Notes to patient: Used to help growth and good health Take 1 Capsule by mouth in the morning. STOP taking these medications Nitrofurantoin Monohydrate Macrocrystals 100 MG Capsule Commonly known as: Macrobid oxyCODONE 5 MG immediate release tablet Commonly known as: Oxy IR CONTINUE taking these medications but follow up with your Primary Care Physician (PCP). INSTRUCTIONS Cholestyramine Light 4 g powder Commonly known as: Prevalite Notes to patient: It can lower high cholesterol levels. It can also treat severe itching caused by liver disease. Mix 1 packet in 4 to 6 ounces of your favorate NONCARBONATED beverage and stir vigorously and drinkby mouth daily in the morning. SCHEDULED FOLLOW-UP: Future Appointments Appt Date/Time Provider Department 11/08/2023 10:20 AM Evelyn Andrews MD Family Medicine [facility] 11/29/2023 5:00 PM Alexis Serna MD Psychiatry [facility] 12/04/2023 3:45 PM Christopher Almonte MD Urology, [facility] 04/29/2024 8:40 AM Aris Mohr MD Neurology [facility] 09/16/2024 11:20 AM Jodee Austin MD Neurology [facility] Other Information Indwelling Devices: LINES ALL Duration Tunneled Central Cath Double Lumen Left Chest 333 days Urethral Catheter Coude 31 days Vital Signs (last recorded): Most Recent Systolic BP: 121 mmHg (11/07/23715) Most Recent Diastolic BP: 73 mmHg (11/07/23715) Pulse: 106 (11/07/23 0756) Resp: 18 (11/07/23715) Most Recent Temperature: 36.39 C (11/07/23715) Weight: 40.5 kg (89 lb 3.2 oz) (11/07/23 0619) SpO2: 95 % (11/07/23715) Allergies: Amoxicillin, Sulfa antibiotics, and Oxybutynin Activity: as tolerated Diet: age appropriate diet Code Status: No Code Condition on Discharge: stable Isolation status: None Cognition: normal HOSPITAL CONSULTS ORDERED: NUTRITION SERVICES (DIETITIAN) CONSULT IP CARE MANAGEMENT CONSULT IP REFERRING PHYSICIAN: Ref: NARESH CHEEMA[[id number]] [address] [place] [address] (office) [phone] (fax) PRIMARY CARE PROVIDER: PCP: Evelyn Mobley MD [address] [place] [address] / [place] [address] (office) [phone] (fax) Note: To contact a physician responsible for this patients hospital care, please call [facility] [phone]. I certify this patient is confined to the home and needs intermittent long-term care, physical therapy and/or speech therapy, or continues to need occupational therapy. The patient is under my care and I have authorized services on this plan of care. The clinical findings of decrease in functional mobility secondary to decreased strength, decreased balance, and decreased endurance due to recent hospitalization and overall medical condition support the need for home health, and the patientdemonstrates a considerable and taxing effort when attempting to leave the home. The patient had a [id number]-iy-mrmt encounter with an allowed provider type on 11/07/2023 and the encounter was related to the primary reason for home health care. Under situations in whichI am an acute/post acute facility physician who will not be following the patient's plan of care, Iauthorized services on this plan of care and I transfer the patient for plan of care certification to the primary care physician named below who will follow the patient and update the plan of care. Primary care physician Evelyn Mobley MD I spent a total of 35 minutes coordinating, documenting, and providing care for this patient excluding time spent in the performance of separately billed services. documented in this encounter Discharge Instructions * Discharge Instr - AVS* Juan Zaragoza DO - 11/06/2023 3:18 PM EDT Discharge Date: The information below provides you with the instructions and the list of medications you need to betaking following discharge from the hospital. If you have any questions, please ask before leaving. If you have questions after leaving, you can reach us at the numbers below. YOUR HOSPITAL PROVIDERS: Discharging Provider: Juan Zaragoza DO Provider Department: Hospital Medicine To reach this Provider Monday through Monday (8:00 AM to 4:30 PM) for any questions or test results: Call [phone] For after-hours concerns: Call [phone] and have your provider paged, or the provider senior electronics design engineer for the Department of Hospital Medicine paged. Please note, the discharging provider will not be able to provide you with any medications refills.Please discuss these with your primary care provider. Worsening Symptoms: If you have new symptoms, or your symptoms get worse, please contact your Discharge Provider or Primary Care Provider (PCP). If these providers are not available, you can go to your local [facility] during their business hours. In an EMERGENCY situation: Call 911 or go to the nearest emergency room. A BRIEF SUMMARY OF YOUR HOSPITAL STAY: You came to the hospital with: complaint of re-initiation of TPN and monitoring for refeeding syndrome Your main diagnosis at discharge was: Re-initiation of TPN and monitoring for refeeding syndrome Operations & Procedures performed: none Complications: none significant Inpatient test results that are pending at discharge: none Advance Directive Documented: Advance Directive Does the Patient have an Advance Directive? Yes YOUR FOLLOW UP APPOINTMENTS: Primary Care Provider Information: PCP: Evelyn Mobley MD [address] [place] [address] / Nancy RAMEY [phone] (office) [phone] (fax) An appointment was requested with your PCP (Evelyn Mobley MD) within 7 days. (Please take this form to this visit with your primary care physician.) You need the following studies in the future: none INSTRUCTIONS: Diet: Normal diet Activity: As tolerated Additional Instructions: documented in this encounter Progress Notes * [facility] - 11/06/2023 11:25 AM EDT PHARMACY PARENTERAL NUTRITION CONSULT [facility] [address] Name: Chandrika Hogue Date: 11/06/2023 at 11:25 AM PN per Pharmacy TBW: 38.6 kg Height: 149.9 cm BMI: 17.77 kg/m2 Age: 58 years Diabetic?: no Central or peripheral administration?: central Cycle Time: 12 hours Goal PN parameters: Total Kcal: 1110 Fluid: 1000 ml Macronutrients: Amino acids: 75 grams = 300 kcal (4 kcal/gram) = 27 % of total Carbohydrates: 150 grams = 510 kcal (3.4 kcal/gram) = 46 % of total Lipids: 30 grams = 300 kcal (10 kcal/gram) = 27 % goal Current PN parameters: Total Kcal: 1256 (113 % goal) Fluid: 1000 ml (100 % goal) Macronutrients: Amino acids: 65 grams = 260 kcal (4 kcal/gram) = 86 % goal (decreased today due to elevated BUN) Carbohydrates: 190 grams = 646 kcal (3.4 kcal/gram) = 126 % goal Lipids: 35 grams = 350 kcal (10 kcal/gram) = 116 % goal Micronutrients Electrolytes Na: 37 meq K: 40 meq Phos: 10 mmol M meq Ca: 4 meq Acetate: 40 meq Cl: 24 meq Trace elements: 1 ml Infuvite multivitamin: 10 ml Thiamine: 100 mg -Patient being admitted to restart TPN. -Sodium acetate is on backorder. -Please [place] Text Dr. Vic Wilkerson daily for recommendations. Contact the Pharmacy at extension [phone] if there are any questions. * Juan Zaragoza DO - 11/06/2023 9:47 AM EDT Images from the original note were not included. [facility] 5A-5107/D INTERVAL HISTORY: 58-year-old female direct admit at the direction of Dr. Wilkerson to re-initiate TPN therapy and monitor for refeeding syndrome. Patient was hospitalized back in September of 2023 for TPN initiation and monitoring for refeeding syndrome complication but patient had decided to discontinue TPN at that time prior to discharge. PMH includes tobacco use, gastric bypass in 2000, nephrectomy, severe protein energy malnutrition, bipolar disorder, depression Subjective: Patient evaluated at bedside. No issues overnight. Still complaining of dysuria what she was informed that her UA and urine culture are negative. Plans on going back to work after being discharged. Objective Physical Exam Most Recent Vital Signs: BP: 97 mmHg/59 mmHg (11/06/23727) Pulse: 91 (11/06/23727) Temp: 36.28 C (11/06/23727) Temp Summary: Temp Min: 36.1 C (97 F) Max: 36.7 C (98.1 F) SpO2: 90 % (11/06/23727) O2 flow rate: Supplemental O2 Delivery: Room Air, None (11/06/23 0800) Constitutional: no acute distress, (+) frail Neck: supple, normal range of motion CV: normal rate and rhythm, no murmur, gallops or rub Chest: normal respiratory effort, lungs clear to auscultation and percussion, (+) double-lumen central line on left chest wall Abdomen: normal: soft, bowel sounds normal, no masses, tenderness or organomegaly Extremities: no clubbing, cyanosis, or edema, otherwise grossly normal, warm, and dry Skin: warm, dry, intact: Neuro: alert, oriented to person, place, and time Tunneled Central Cath Double Lumen Left Chest (Active) Number of days: 332 STUDIES: Encounter Orders Labs and other studies reviewed with pertinent findings noted below: Results for orders placed or performed during the hospital encounter of 11/03/23 CBC Result Value Ref Range WBC 8.19 4.00 - 10.80 K/uL RBC 3.80 3.85 - 5.15 M/uL HGB 11.4 (L) 12.0 - 15.3 g/dL HCT 38.5 36.0 - 45.2 % MCV 101.3 81.5 - 97.5 fL MCH 30.0 27.0 - 34.0 pg MCHC 29.6 32.0 - 36.0 g/dL RDW 17.7 11.5 - 15.5 % PLT 159 140 - 400 K/uL MPV 12.1 6.6 - 11.1 fL nRBCs 0 <=0 /100 WBCs BASIC METABOLIC PANEL Result Value Ref Range BUN 29 (H) 6 - 20 mg/dL Creatinine 1.4 (H) 0.5 - 1.0 mg/dL Estimated Glomerular Filtration Rate 45 (L) >=60 mL/min Sodium 138 135 - 146 mmol/L Potassium 5.0 3.5 - 5.1 mmol/L Chloride 116 (H) 98 - 107 mmol/L CO2 11 (L) 22 - 32 mmol/L Anion Gap 11 7 - 15 mmol/L Glucose 85 70 - 120 mg/dL Calcium 8.5 8.4 - 10.2 mg/dL PHOSPHORUS Result Value Ref Range Phosphorus 5.3 (H) 2.5 - 4.8 mg/dL MAGNESIUM Result Value Ref Range Magnesium 2.0 1.5 - 2.6 mg/dL URINALYSIS, REFLEX TO MICROSCOPIC Result Value Ref Range Color, Urine Yellow Light Yellow, Yellow, Dark Yellow Clarity, Urine Clear Clear Glucose, Urine Negative Negative mg/dL Bilirubin, Urine Negative Negative Ketone, Urine Negative Negative mg/dL Specific [place], Urine 1.020 1.003 - 1.030 Blood, Urine Trace (A) Negative pH, Urine 6.0 5.0 - 7.5 Units Protein, Urine Trace (A) Negative mg/dL Urobilinogen, Urine 0.2 0.2, 1.0 mg/dL Nitrite, Urine Negative Negative Esterase, Urine Negative Negative CULTURE, URINE, QUANTITATIVE Specimen: Urine, Catheter Result Value Ref Range Culture Growth No significant growth HEPATIC FUNCTION PANEL Result Value Ref Range Albumin 3.8 3.8 - 5.0 g/dL AST 19 10 - 35 U/L Alkaline Phosphatase 261 (H) 35 - 130 U/L ALT 14 10 - 35 U/L Bilirubin, Total <0.2 <=1.2 mg/dL Bilirubin, Direct <0.2 0.0 - 0.3 mg/dL Protein 6.8 6.0 - 8.3 g/dL MAGNESIUM Result Value Ref Range Magnesium 2.0 1.5 - 2.6 mg/dL MICROSCOPIC EXAM, URINE Result Value Ref Range RBC, Urine 0-2 0 - 2 /HPF WBC, Urine 0-2 0 - 2 /HPF Bacteria, Urine 0-25 0 - 25 /HPF CALCIUM, IONIZED Result Value Ref Range Calcium, Ionized 1.21 1.13 - 1.32 mmol/L CBC Result Value Ref Range WBC 7.23 4.00 - 10.80 K/uL RBC 3.23 3.85 - 5.15 M/uL HGB 9.6 (L) 12.0 - 15.3 g/dL HCT 32.0 (L) 36.0 - 45.2 % MCV 99.1 81.5 - 97.5 fL MCH 29.7 27.0 - 34.0 pg MCHC 30.0 32.0 - 36.0 g/dL RDW 17.3 11.5 - 15.5 % PLT 137 (L) 140 - 400 K/uL MPV 12.5 6.6 - 11.1 fL nRBCs 0 <=0 /100 WBCs BASIC METABOLIC PANEL Result Value Ref Range BUN 30 (H) 6 - 20 mg/dL Creatinine 1.2 (H) 0.5 - 1.0 mg/dL Estimated Glomerular Filtration Rate 50 (L) >=60 mL/min Sodium 134 (L) 135 - 146 mmol/L Potassium 4.8 3.5 - 5.1 mmol/L Chloride 111 (H) 98 - 107 mmol/L CO2 11 (L) 22 - 32 mmol/L Anion Gap 12 7 - 15 mmol/L Glucose 136 (H) 70 - 120 mg/dL Calcium 7.8 (L) 8.4 - 10.2 mg/dL PHOSPHORUS Result Value Ref Range Phosphorus 2.9 2.5 - 4.8 mg/dL MAGNESIUM Result Value Ref Range Magnesium 1.7 1.5 - 2.6 mg/dL BASIC METABOLIC PANEL Result Value Ref Range BUN 34 (H) 6 - 20 mg/dL Creatinine 1.1 (H) 0.5 - 1.0 mg/dL Estimated Glomerular Filtration Rate 56 (L) >=60 mL/min Sodium 135 135 - 146 mmol/L Potassium 4.1 3.5 - 5.1 mmol/L Chloride 110 (H) 98 - 107 mmol/L CO2 13 (L) 22 - 32 mmol/L Anion Gap 12 7 - 15 mmol/L Glucose 154 (H) 70 - 120 mg/dL Calcium 7.8 (L) 8.4 - 10.2 mg/dL PHOSPHORUS Result Value Ref Range Phosphorus 2.3 (L) 2.5 - 4.8 mg/dL MAGNESIUM Result Value Ref Range Magnesium 2.0 1.5 - 2.6 mg/dL BASIC METABOLIC PANEL Result Value Ref Range BUN 40 (H) 6 - 20 mg/dL Creatinine 1.0 0.5 - 1.0 mg/dL Estimated Glomerular Filtration Rate 64 >=60 mL/min Sodium 139 135 - 146 mmol/L Potassium 4.5 3.5 - 5.1 mmol/L Chloride 115 (H) 98 - 107 mmol/L CO2 18 (L) 22 - 32 mmol/L Anion Gap 6 (L) 7 - 15 mmol/L Glucose 139 (H) 70 - 120 mg/dL Calcium 8.5 8.4 - 10.2 mg/dL PHOSPHORUS Result Value Ref Range Phosphorus 2.5 2.5 - 4.8 mg/dL MAGNESIUM Result Value Ref Range Magnesium 2.1 1.5 - 2.6 mg/dL CALCIUM, IONIZED Result Value Ref Range Calcium, Ionized 1.28 1.13 - 1.32 mmol/L BASIC METABOLIC PANEL Result Value Ref Range BUN 47 (H) 6 - 20 mg/dL Creatinine 1.3 (H) 0.5 - 1.0 mg/dL Estimated Glomerular Filtration Rate 49 (L) >=60 mL/min Sodium 142 135 - 146 mmol/L Potassium 4.1 3.5 - 5.1 mmol/L Chloride 116 (H) 98 - 107 mmol/L CO2 16 (L) 22 - 32 mmol/L Anion Gap 10 7 - 15 mmol/L Glucose 89 70 - 120 mg/dL Calcium 8.5 8.4 - 10.2 mg/dL PHOSPHORUS Result Value Ref Range Phosphorus 2.7 2.5 - 4.8 mg/dL MAGNESIUM Result Value Ref Range Magnesium 2.1 1.5 - 2.6 mg/dL CBC Result Value Ref Range WBC 6.87 4.00 - 10.80 K/uL RBC 3.12 3.85 - 5.15 M/uL HGB 9.5 (L) 12.0 - 15.3 g/dL HCT 30.7 (L) 36.0 - 45.2 % MCV 98.4 81.5 - 97.5 fL MCH 30.4 27.0 - 34.0 pg MCHC 30.9 32.0 - 36.0 g/dL RDW 18.3 11.5 - 15.5 % PLT 146 140 - 400 K/uL MPV 12.6 6.6 - 11.1 fL nRBCs 0 <=0 /100 WBCs CALCIUM, IONIZED Result Value Ref Range Calcium, Ionized 1.29 1.13 - 1.32 mmol/L BASIC METABOLIC PANEL Result Value Ref Range BUN 48 (H) 6 - 20 mg/dL Creatinine 1.2 (H) 0.5 - 1.0 mg/dL Estimated Glomerular Filtration Rate 54 (L) >=60 mL/min Sodium 143 135 - 146 mmol/L Potassium 4.5 3.5 - 5.1 mmol/L Chloride 114 (H) 98 - 107 mmol/L CO2 17 (L) 22 - 32 mmol/L Anion Gap 12 7 - 15 mmol/L Glucose 127 (H) 70 - 120 mg/dL Calcium 8.7 8.4 - 10.2 mg/dL PHOSPHORUS Result Value Ref Range Phosphorus 3.1 2.5 - 4.8 mg/dL MAGNESIUM Result Value Ref Range Magnesium 2.3 1.5 - 2.6 mg/dL *Note: Due to a large number of results and/or encounters for the requested time period, some results have not been displayed. A complete set of results can be found in Results Review. XR CHEST 1 VIEW Final Result PROCEDURE INFORMATION: Exam: XR Chest Exam date and time: 11/03/2023 5:59 PM Age: 58 years old Clinical indication: Other: F/u. No active chest complaints. ; Additional info: F/u pna last month TECHNIQUE: Imaging protocol: Radiologic exam of the chest. Views: 1 view. COMPARISON: DX XR CHEST 1 VIEW 10/09/2023 10:38 AM FINDINGS: Lungs: Hyperaeration. No consolidation. Pleural spaces: Unremarkable. No pleural effusion. No pneumothorax. Heart/Mediastinum: Stable size and configuration. MediPort in place. Bones/joints: Unchanged. Other: Right upper quadrant clips. IMPRESSION IMPRESSION: No evidence of acute intrathoracic pathology. THIS DOCUMENT HAS BEEN ELECTRONICALLY SIGNED BY SIMEON DAVIES MD Assessment and Plan IMPRESSION : Principal Problem: Failure to thrive in adult Active Problems: Status post bariatric surgery Severe protein-energy malnutrition (HCC) Copper deficiency myeloneuropathy (HCC) Bipolar disorder (HCC) MDD (major depressive disorder), recurrent severe, without psychosis (HCC) Tobacco abuse Resolved Problems: * No resolved hospital problems. * DIFFERENTIAL AND PLAN: Continue TPN. Appreciate pharmacy and nutrition input Monitor for refeeding syndrome CXR was unremarkable Case Management following Patient states she had talked with Dr. Wilkerson with plans for TPN 3-4 days a week. Continue PATROL OFFICER medications Complains of dysuria. UA was obtained and was unremarkable and urine culture negative Labs reviewed. Renal function at baseline. Electrolyte abnormalities have resolved. PHARMACOLOGIC VTE PROPHYLAXIS: hEParin CODE STATUS: No Code EXPECTED DISCHARGE DATE: 11/07/2023 I spent a total of 36 minutes coordinating, documenting, and providing care for this patient excluding time spent in the performance of separately billed services. * Juan Zaragoza DO - 11/05/2023 10:08 AM EDT Images from the original note were not included. [facility] 5A-5117/W INTERVAL HISTORY: 58-year-old female direct admit at the direction of Dr. Wilkerson to re-initiate TPN therapy and monitor for refeeding syndrome. Patient was hospitalized back in September of 2023 for TPN initiation and monitoring for refeeding syndrome complication but patient had decided to discontinue TPN at that time prior to discharge. PMH includes tobacco use, gastric bypass in 2000, nephrectomy, severe protein energy malnutrition, bipolar disorder, depression Subjective: Patient evaluated at bedside. No issues overnight. Still complaining of dysuria but UA unremarkable. Objective Physical Exam Most Recent Vital Signs: BP: 95 mmHg/64 mmHg (11/05/23729) Pulse: 92 (11/05/23729) Temp: 36.28 C (11/05/23729) Temp Summary: Temp Min: 36 C (96.8 F) Max: 37.1 C (98.8 F) SpO2: 95 % (11/05/23729) O2 flow rate: Supplemental O2 Delivery: Room Air, None (11/05/23729) Constitutional: no acute distress, (+) frail Neck: supple, normal range of motion CV: normal rate and rhythm, no murmur, gallops or rub Chest: normal respiratory effort, lungs clear to auscultation and percussion, (+) double-lumen central line on left chest wall Abdomen: normal: soft, bowel sounds normal, no masses, tenderness or organomegaly Extremities: no clubbing, cyanosis, or edema, otherwise grossly normal, warm, and dry Skin: warm, dry, intact: Neuro: alert, oriented to person, place, and time Tunneled Central Cath Double Lumen Left Chest (Active) Number of days: 331 STUDIES: Encounter Orders Labs and other studies reviewed with pertinent findings noted below: Results for orders placed or performed during the hospital encounter of 11/03/23 CBC Result Value Ref Range WBC 8.19 4.00 - 10.80 K/uL RBC 3.80 3.85 - 5.15 M/uL HGB 11.4 (L) 12.0 - 15.3 g/dL HCT 38.5 36.0 - 45.2 % MCV 101.3 81.5 - 97.5 fL MCH 30.0 27.0 - 34.0 pg MCHC 29.6 32.0 - 36.0 g/dL RDW 17.7 11.5 - 15.5 % PLT 159 140 - 400 K/uL MPV 12.1 6.6 - 11.1 fL nRBCs 0 <=0 /100 WBCs BASIC METABOLIC PANEL Result Value Ref Range BUN 29 (H) 6 - 20 mg/dL Creatinine 1.4 (H) 0.5 - 1.0 mg/dL Estimated Glomerular Filtration Rate 45 (L) >=60 mL/min Sodium 138 135 - 146 mmol/L Potassium 5.0 3.5 - 5.1 mmol/L Chloride 116 (H) 98 - 107 mmol/L CO2 11 (L) 22 - 32 mmol/L Anion Gap 11 7 - 15 mmol/L Glucose 85 70 - 120 mg/dL Calcium 8.5 8.4 - 10.2 mg/dL PHOSPHORUS Result Value Ref Range Phosphorus 5.3 (H) 2.5 - 4.8 mg/dL MAGNESIUM Result Value Ref Range Magnesium 2.0 1.5 - 2.6 mg/dL URINALYSIS, REFLEX TO MICROSCOPIC Result Value Ref Range Color, Urine Yellow Light Yellow, Yellow, Dark Yellow Clarity, Urine Clear Clear Glucose, Urine Negative Negative mg/dL Bilirubin, Urine Negative Negative Ketone, Urine Negative Negative mg/dL Specific [place], Urine 1.020 1.003 - 1.030 Blood, Urine Trace (A) Negative pH, Urine 6.0 5.0 - 7.5 Units Protein, Urine Trace (A) Negative mg/dL Urobilinogen, Urine 0.2 0.2, 1.0 mg/dL Nitrite, Urine Negative Negative Esterase, Urine Negative Negative CULTURE, URINE, QUANTITATIVE Specimen: Urine, Catheter Result Value Ref Range Culture Growth No significant growth HEPATIC FUNCTION PANEL Result Value Ref Range Albumin 3.8 3.8 - 5.0 g/dL AST 19 10 - 35 U/L Alkaline Phosphatase 261 (H) 35 - 130 U/L ALT 14 10 - 35 U/L Bilirubin, Total <0.2 <=1.2 mg/dL Bilirubin, Direct <0.2 0.0 - 0.3 mg/dL Protein 6.8 6.0 - 8.3 g/dL MAGNESIUM Result Value Ref Range Magnesium 2.0 1.5 - 2.6 mg/dL MICROSCOPIC EXAM, URINE Result Value Ref Range RBC, Urine 0-2 0 - 2 /HPF WBC, Urine 0-2 0 - 2 /HPF Bacteria, Urine 0-25 0 - 25 /HPF CALCIUM, IONIZED Result Value Ref Range Calcium, Ionized 1.21 1.13 - 1.32 mmol/L CBC Result Value Ref Range WBC 7.23 4.00 - 10.80 K/uL RBC 3.23 3.85 - 5.15 M/uL HGB 9.6 (L) 12.0 - 15.3 g/dL HCT 32.0 (L) 36.0 - 45.2 % MCV 99.1 81.5 - 97.5 fL MCH 29.7 27.0 - 34.0 pg MCHC 30.0 32.0 - 36.0 g/dL RDW 17.3 11.5 - 15.5 % PLT 137 (L) 140 - 400 K/uL MPV 12.5 6.6 - 11.1 fL nRBCs 0 <=0 /100 WBCs BASIC METABOLIC PANEL Result Value Ref Range BUN 30 (H) 6 - 20 mg/dL Creatinine 1.2 (H) 0.5 - 1.0 mg/dL Estimated Glomerular Filtration Rate 50 (L) >=60 mL/min Sodium 134 (L) 135 - 146 mmol/L Potassium 4.8 3.5 - 5.1 mmol/L Chloride 111 (H) 98 - 107 mmol/L CO2 11 (L) 22 - 32 mmol/L Anion Gap 12 7 - 15 mmol/L Glucose 136 (H) 70 - 120 mg/dL Calcium 7.8 (L) 8.4 - 10.2 mg/dL PHOSPHORUS Result Value Ref Range Phosphorus 2.9 2.5 - 4.8 mg/dL MAGNESIUM Result Value Ref Range Magnesium 1.7 1.5 - 2.6 mg/dL BASIC METABOLIC PANEL Result Value Ref Range BUN 34 (H) 6 - 20 mg/dL Creatinine 1.1 (H) 0.5 - 1.0 mg/dL Estimated Glomerular Filtration Rate 56 (L) >=60 mL/min Sodium 135 135 - 146 mmol/L Potassium 4.1 3.5 - 5.1 mmol/L Chloride 110 (H) 98 - 107 mmol/L CO2 13 (L) 22 - 32 mmol/L Anion Gap 12 7 - 15 mmol/L Glucose 154 (H) 70 - 120 mg/dL Calcium 7.8 (L) 8.4 - 10.2 mg/dL PHOSPHORUS Result Value Ref Range Phosphorus 2.3 (L) 2.5 - 4.8 mg/dL MAGNESIUM Result Value Ref Range Magnesium 2.0 1.5 - 2.6 mg/dL BASIC METABOLIC PANEL Result Value Ref Range BUN 40 (H) 6 - 20 mg/dL Creatinine 1.0 0.5 - 1.0 mg/dL Estimated Glomerular Filtration Rate 64 >=60 mL/min Sodium 139 135 - 146 mmol/L Potassium 4.5 3.5 - 5.1 mmol/L Chloride 115 (H) 98 - 107 mmol/L CO2 18 (L) 22 - 32 mmol/L Anion Gap 6 (L) 7 - 15 mmol/L Glucose 139 (H) 70 - 120 mg/dL Calcium 8.5 8.4 - 10.2 mg/dL PHOSPHORUS Result Value Ref Range Phosphorus 2.5 2.5 - 4.8 mg/dL MAGNESIUM Result Value Ref Range Magnesium 2.1 1.5 - 2.6 mg/dL CALCIUM, IONIZED Result Value Ref Range Calcium, Ionized 1.28 1.13 - 1.32 mmol/L *Note: Due to a large number of results and/or encounters for the requested time period, some results have not been displayed. A complete set of results can be found in Results Review. XR CHEST 1 VIEW Final Result PROCEDURE INFORMATION: Exam: XR Chest Exam date and time: 11/03/2023 5:59 PM Age: 58 years old Clinical indication: Other: F/u. No active chest complaints. ; Additional info: F/u pna last month TECHNIQUE: Imaging protocol: Radiologic exam of the chest. Views: 1 view. COMPARISON: DX XR CHEST 1 VIEW 10/09/2023 10:38 AM FINDINGS: Lungs: Hyperaeration. No consolidation. Pleural spaces: Unremarkable. No pleural effusion. No pneumothorax. Heart/Mediastinum: Stable size and configuration. MediPort in place. Bones/joints: Unchanged. Other: Right upper quadrant clips. IMPRESSION IMPRESSION: No evidence of acute intrathoracic pathology. THIS DOCUMENT HAS BEEN ELECTRONICALLY SIGNED BY SIMEON DAVIES MD Assessment and Plan IMPRESSION : Principal Problem: Failure to thrive in adult Active Problems: Status post bariatric surgery Severe protein-energy malnutrition (HCC) Copper deficiency myeloneuropathy (HCC) Bipolar disorder (HCC) MDD (major depressive disorder), recurrent severe, without psychosis (HCC) Tobacco abuse Resolved Problems: * No resolved hospital problems. * DIFFERENTIAL AND PLAN: Continue TPN. Appreciate pharmacy and nutrition input Monitor for refeeding syndrome CXR was unremarkable Case Management following Patient states she had talked with Dr. Wlikerson with plans for TPN 3-4 days a week. Continue PATROL OFFICER medications Complains of dysuria. UA was obtained and was unremarkable. Labs reviewed. PHARMACOLOGIC VTE PROPHYLAXIS: hEParin CODE STATUS: No Code EXPECTED DISCHARGE DATE: 11/08/2023 I spent a total of 36 minutes coordinating, documenting, and providing care for this patient excluding time spent in the performance of separately billed services. * Nieves Ray RPh - 11/05/2023 9:54 AM EDT PHARMACY PARENTERAL NUTRITION CONSULT [address] [address] Name: Chandrika Hogue Date: 11/05/2023 at 9:54 AM PN per Pharmacy TBW: 38.6 kg Height: 149.9 cm BMI: 17.77 kg/m2 Age: 58 years Diabetic?: no Central or peripheral administration?: central Cycle Time: 12 hours Goal PN parameters: Total Kcal: 1110 Fluid: 1000 ml Macronutrients: Amino acids: 75 grams = 300 kcal (4 kcal/gram) = 27 % of total Carbohydrates: 150 grams = 510 kcal (3.4 kcal/gram) = 46 % of total Lipids: 30 grams = 300 kcal (10 kcal/gram) = 27 % goal Current PN parameters: Total Kcal: 1256 (113 % goal) Fluid: 1000 ml (100 % goal) Macronutrients: Amino acids: 65 grams = 260 kcal (4 kcal/gram) = 86 % goal (decreased today due to elevated BUN) Carbohydrates: 190 grams = 646 kcal (3.4 kcal/gram) = 126 % goal Lipids: 35 grams = 350 kcal (10 kcal/gram) = 116 % goal Micronutrients Electrolytes Na: 40 meq K: 40 meq Phos: 12 mmol M meq Ca: 4 meq Acetate: 40 meq Cl: 24 meq Trace elements: 1 ml Infuvite multivitamin: 10 ml Thiamine: 100 mg -Patient being admitted to restart TPN. -Sodium acetate is on backorder. -Please [place] Text Dr. Vic Wilkerson daily for recommendations. Contact the Pharmacy at extension [phone] if there are any questions. * Juan Zaragoza DO - 11/04/2023 1:59 PM EDT Images from the original note were not included. [facility] 5A-5117/W INTERVAL HISTORY: 58-year-old female direct admit at the direction of Dr. Wilkerson to re-initiate TPN therapy and monitor for refeeding syndrome. Patient was hospitalized back in September of 2023 for TPN initiation and monitoring for refeeding syndrome complication but patient had decided to discontinue TPN at that time prior to discharge. PMH includes tobacco use, gastric bypass in 2000, nephrectomy, severe protein energy malnutrition, bipolar disorder, depression Subjective: Patient evaluated at bedside. No issues overnight. Objective Physical Exam Most Recent Vital Signs: BP: 96 mmHg/63 mmHg (11/04/231048) Pulse: 93 (11/04/231048) Temp: 37.11 C (11/04/231048) Temp Summary: Temp Min: 36.1 C (97 F) Max: 38 C (100.4 F) SpO2: 97 % (11/04/231048) O2 flow rate: Supplemental O2 Delivery: Room Air, None (11/04/231048) Constitutional: no acute distress, (+) frail Neck: supple, normal range of motion CV: normal rate and rhythm, no murmur, gallops or rub Chest: normal respiratory effort, lungs clear to auscultation and percussion, (+) double-lumen central line on left chest wall Abdomen: normal: soft, bowel sounds normal, no masses, tenderness or organomegaly Extremities: no clubbing, cyanosis, or edema, otherwise grossly normal, warm, and dry Skin: warm, dry, intact: Neuro: alert, oriented to person, place, and time Tunneled Central Cath Double Lumen Left Chest (Active) Number of days: 330 STUDIES: Encounter Orders Labs and other studies reviewed with pertinent findings noted below: Results for orders placed or performed during the hospital encounter of 11/03/23 CBC Result Value Ref Range WBC 8.19 4.00 - 10.80 K/uL RBC 3.80 3.85 - 5.15 M/uL HGB 11.4 (L) 12.0 - 15.3 g/dL HCT 38.5 36.0 - 45.2 % MCV 101.3 81.5 - 97.5 fL MCH 30.0 27.0 - 34.0 pg MCHC 29.6 32.0 - 36.0 g/dL RDW 17.7 11.5 - 15.5 % PLT 159 140 - 400 K/uL MPV 12.1 6.6 - 11.1 fL nRBCs 0 <=0 /100 WBCs BASIC METABOLIC PANEL Result Value Ref Range BUN 29 (H) 6 - 20 mg/dL Creatinine 1.4 (H) 0.5 - 1.0 mg/dL Estimated Glomerular Filtration Rate 45 (L) >=60 mL/min Sodium 138 135 - 146 mmol/L Potassium 5.0 3.5 - 5.1 mmol/L Chloride 116 (H) 98 - 107 mmol/L CO2 11 (L) 22 - 32 mmol/L Anion Gap 11 7 - 15 mmol/L Glucose 85 70 - 120 mg/dL Calcium 8.5 8.4 - 10.2 mg/dL PHOSPHORUS Result Value Ref Range Phosphorus 5.3 (H) 2.5 - 4.8 mg/dL MAGNESIUM Result Value Ref Range Magnesium 2.0 1.5 - 2.6 mg/dL URINALYSIS, REFLEX TO MICROSCOPIC Result Value Ref Range Color, Urine Yellow Light Yellow, Yellow, Dark Yellow Clarity, Urine Clear Clear Glucose, Urine Negative Negative mg/dL Bilirubin, Urine Negative Negative Ketone, Urine Negative Negative mg/dL Specific [place], Urine 1.020 1.003 - 1.030 Blood, Urine Trace (A) Negative pH, Urine 6.0 5.0 - 7.5 Units Protein, Urine Trace (A) Negative mg/dL Urobilinogen, Urine 0.2 0.2, 1.0 mg/dL Nitrite, Urine Negative Negative Esterase, Urine Negative Negative HEPATIC FUNCTION PANEL Result Value Ref Range Albumin 3.8 3.8 - 5.0 g/dL AST 19 10 - 35 U/L Alkaline Phosphatase 261 (H) 35 - 130 U/L ALT 14 10 - 35 U/L Bilirubin, Total <0.2 <=1.2 mg/dL Bilirubin, Direct <0.2 0.0 - 0.3 mg/dL Protein 6.8 6.0 - 8.3 g/dL MAGNESIUM Result Value Ref Range Magnesium 2.0 1.5 - 2.6 mg/dL MICROSCOPIC EXAM, URINE Result Value Ref Range RBC, Urine 0-2 0 - 2 /HPF WBC, Urine 0-2 0 - 2 /HPF Bacteria, Urine 0-25 0 - 25 /HPF CALCIUM, IONIZED Result Value Ref Range Calcium, Ionized 1.21 1.13 - 1.32 mmol/L CBC Result Value Ref Range WBC 7.23 4.00 - 10.80 K/uL RBC 3.23 3.85 - 5.15 M/uL HGB 9.6 (L) 12.0 - 15.3 g/dL HCT 32.0 (L) 36.0 - 45.2 % MCV 99.1 81.5 - 97.5 fL MCH 29.7 27.0 - 34.0 pg MCHC 30.0 32.0 - 36.0 g/dL RDW 17.3 11.5 - 15.5 % PLT 137 (L) 140 - 400 K/uL MPV 12.5 6.6 - 11.1 fL nRBCs 0 <=0 /100 WBCs BASIC METABOLIC PANEL Result Value Ref Range BUN 30 (H) 6 - 20 mg/dL Creatinine 1.2 (H) 0.5 - 1.0 mg/dL Estimated Glomerular Filtration Rate 50 (L) >=60 mL/min Sodium 134 (L) 135 - 146 mmol/L Potassium 4.8 3.5 - 5.1 mmol/L Chloride 111 (H) 98 - 107 mmol/L CO2 11 (L) 22 - 32 mmol/L Anion Gap 12 7 - 15 mmol/L Glucose 136 (H) 70 - 120 mg/dL Calcium 7.8 (L) 8.4 - 10.2 mg/dL PHOSPHORUS Result Value Ref Range Phosphorus 2.9 2.5 - 4.8 mg/dL MAGNESIUM Result Value Ref Range Magnesium 1.7 1.5 - 2.6 mg/dL *Note: Due to a large number of results and/or encounters for the requested time period, some results have not been displayed. A complete set of results can be found in Results Review. XR CHEST 1 VIEW Final Result PROCEDURE INFORMATION: Exam: XR Chest Exam date and time: 11/03/2023 5:59 PM Age: 58 years old Clinical indication: Other: F/u. No active chest complaints. ; Additional info: F/u pna last month TECHNIQUE: Imaging protocol: Radiologic exam of the chest. Views: 1 view. COMPARISON: DX XR CHEST 1 VIEW 10/09/2023 10:38 AM FINDINGS: Lungs: Hyperaeration. No consolidation. Pleural spaces: Unremarkable. No pleural effusion. No pneumothorax. Heart/Mediastinum: Stable size and configuration. MediPort in place. Bones/joints: Unchanged. Other: Right upper quadrant clips. IMPRESSION IMPRESSION: No evidence of acute intrathoracic pathology. THIS DOCUMENT HAS BEEN ELECTRONICALLY SIGNED BY SIMEON DAVIES MD Assessment and Plan IMPRESSION : Principal Problem: Failure to thrive in adult Active Problems: Status post bariatric surgery Severe protein-energy malnutrition (HCC) Copper deficiency myeloneuropathy (HCC) Bipolar disorder (HCC) MDD (major depressive disorder), recurrent severe, without psychosis (HCC) Tobacco abuse Resolved Problems: * No resolved hospital problems. * DIFFERENTIAL AND PLAN: Continue TPN. Appreciate pharmacy and nutrition input Monitor for refeeding syndrome CXR was unremarkable Case Management following Patient states she had talked with Dr. Wilkerson with plans for TPN 3-4 days a week. Continue PATROL OFFICER medications PHARMACOLOGIC VTE PROPHYLAXIS: hEParin CODE STATUS: No Code EXPECTED DISCHARGE DATE: 11/08/2023 I spent a total of 36 minutes coordinating, documenting, and providing care for this patient excluding time spent in the performance of separately billed services. * Nieves Ray [facility] - 11/04/2023 10:26 AM EDT PHARMACY PARENTERAL NUTRITION CONSULT [facility] [address] Name: Chandrika Hogue Date: at 10:26 AM PN per Pharmacy TBW: 37.2 kg Height: 149.9 cm BMI: 16.76 kg/m2 Age: 58 years Diabetic?: no Central or peripheral administration?: central Cycle Time: 16 hours Goal PN parameters: Total Kcal: 1110 Fluid: 1000 ml Macronutrients: Amino acids: 75 grams = 300 kcal (4 kcal/gram) = 27 % of total Carbohydrates: 150 grams = 510 kcal (3.4 kcal/gram) = 46 % of total Lipids: 30 grams = 300 kcal (10 kcal/gram) = 27 % goal Current PN parameters: Total Kcal: 1110 (100 % goal) Fluid: 1000 ml (100 % goal) Macronutrients: Amino acids: 75 grams = 300 kcal (4 kcal/gram) = 100 % goal Carbohydrates: 150 grams = 510 kcal (3.4 kcal/gram) = 100 % goal Lipids: 30 grams = 300 kcal (10 kcal/gram) = 100 % goal Micronutrients Electrolytes Na: 40 meq K: 40 meq Phos: 12 mmol M meq Ca: 4 meq Acetate: 40 meq Cl: 24 meq Trace elements: 1 ml Infuvite multivitamin: 10 ml Thiamine: 100 mg -Patient being admitted to restart TPN. -Sodium acetate is on backorder. -Please Lawai Text Dr. Ho Still daily for recommendations. Contact the Pharmacy at extension [phone] if there are any questions. * Tj Park [facility] - 11/03/2023 2:13 PM EDT Images from the original note were not included. PHARMACY PARENTERAL NUTRITION CONSULT [facility] [address] Name: Chandrika Hogue Date: 11/03/2023 at 2:14 PM PN per Pharmacy TBW: 38 kg Height: 149.9 cm BMI: 16.76 kg/m2 Age: 58 years Diabetic?: no Central or peripheral administration?: central Goal PN parameters: Total Kcal: 1110 Fluid: 1500 ml Macronutrients: Amino acids: 75 grams = 300 kcal (4 kcal/gram) = 27 % of total Carbohydrates: 150 grams = 510 kcal (3.4 kcal/gram) = 46 % of total Lipids: 30 grams = 300 kcal (10 kcal/gram) = 27 % goal Current PN parameters: Total Kcal: 1110 (100 % goal) Fluid: 1500 ml (100 % goal) Macronutrients: Amino acids: 75 grams = 300 kcal (4 kcal/gram) = 100 % goal Carbohydrates: 150 grams = 510 kcal (3.4 kcal/gram) = 100 % goal Lipids: 30 grams = 300 kcal (10 kcal/gram) = 100 % goal Micronutrients Electrolytes Na: 40 meq K: 40 meq Phos: 12 mmol M meq Ca: 0 meq Acetate: 40 meq Cl: 40 meq Trace elements: 1 ml Infuvite multivitamin: 10 ml -Patient being admitted to restart TPN. -Sodium acetate is on backorder. -Please Lawai Text Dr. Vic Wilkerson daily for recommendations. Contact the Pharmacy at extension [phone] if there are any questions. Previous TPN parameters from last admission: Current PN parameters: Total Kcal: 1370 (100 % goal) Fluid: 1050 ml (100 % goal) Macronutrients: Amino acids: 60 grams = 240 kcal (4 kcal/gram) = 100 % goal Carbohydrates: 200 grams = 680 kcal (3.4 kcal/gram) = 100 % goal Lipids: 45 grams = 450 kcal (10 kcal/gram) = 100 % goal Micronutrients Electrolytes Na: 40 meq K: 34 meq Phos: 10 mmol M meq Ca: 0 meq Acetate: 20 meq Cl: 40 meq Trace elements: 1 ml Provides Zinc 3 mg Copper 0.3 mg Manganese 55 mcg Selenium 60 mcg Infuvite multivitamin: 10 ml Thiamine 100 mg Octreotide 150 mcg Zinc 5 mg Chloride to acetate ratio: 2 Dextrose mg/kg/min: 1.51 HOME TPN "RECIPE" documented in this encounter H&P Notes * Chandrika Koch CRNP - 11/03/2023 5:09 PM EDT Images from the original note were not included. [facility] 5A-5117/W PRESENTING PROBLEM: need for TPN HPI: Patient with PMHX: tobacco use, gastric bypass in 2000, nephrectomy, hospitalized in September 2023 for TPN initiation and had refeeding complications and at time of d/c decided she did not want to be on home TPN, she continues to lose weight, poor appetite, eats about once a day. She would like to restart TPN. She has agreed to TPN 4 days/week. She was sent in as a direct admission at the direction of Dr. Wilkerosn to initiate TPN. Reports she recently finished Vancomycin and Macrobid for UTI. She still having some dysuria and left sided back pain- unsure if flank pain or coming from her spine. Susceptibility data from last 90 days. Collected Specimen Info Organism Ampicillin Nitrofurantoin Tetracycline Vancomycin 10/17/23 Urine, Clean Catch Enterococcus species R I R S She denies fever/chills, cough/cold sx, chest pain, sob, abdominal pain, N/V. +intermittent nausea. + leg swelling. Reports she had a trip and fall today. Denies injury. No LOC, syncope, near syncope. Subjective Patient's past history, medications, and allergies were reviewed. Objective Physical Exam Most Recent Vital Signs: BP: 119 mmHg/74 mmHg (11/03/23 1700) Pulse: 120 (11/03/23 1700) Temp: 36.11 C (11/03/23 1700) Temp Summary: Temp Min: 36.1 C (97 F) Max: 36.1 C (97 F) SpO2: 100 % (11/03/231699) O2 flow rate: Supplemental O2 Delivery: General: Pt in bed, alert, frail. Double lumen central line to left chest wall. Head: Normocephalic, No masses, lesions, tenderness or abnormalities Eye Exam: PERRLA, EOMI, Conjunctiva are pink and non-injected, sclera clear Ears: External ears normal Oropharynx: mucous membranes moist without erythema or exudates Neck: supple, nontender, no cervical adenopathy palpable Heart: regular rate & rhythm and no murmur appreciated Lungs: no respiratory distress, CTA, without wheeze, rhonchi or crackles Abdomen: + BS, soft, nontender, nondistended, no rebound tenderness or guarding. No CVA tenderness Lower Extremities: trace edema, no calf tenderness, no stasis changes noted Tunneled Central Cath Double Lumen Left Chest (Active) Number of days: 329 STUDIES: Encounter Orders Labs and other studies reviewed with pertinent findings noted below: XR CHEST 1 VIEW (Results Pending) Labs pending. Assessment and Plan IMPRESSION/PLAN OF CARE: Principal Problem: Failure to thrive in adult Active Problems: Status post bariatric surgery Severe protein-energy malnutrition (HCC) Copper deficiency myeloneuropathy (HCC) Bipolar disorder (HCC) MDD (major depressive disorder), recurrent severe, without psychosis (HCC) Tobacco abuse Resolved Problems: * No resolved hospital problems. * Patient admitted for initiation of TPN. Admission labs. Pharmacy aware need for TPN IV team checking line dressing and patency Closely monitor for refeeding syndrome Check UA Patient asking for CXR - states her doctor told her she needed a repeat CXR while in the hospital Consult CM for d/c planning PATROL OFFICER medications PHARMACOLOGIC VTE PROPHYLAXIS:hEParin CODE STATUS: No Code EXPECTED DISCHARGE DATE: 3 days Patient's case and plan of care discussed with my attending, Dr. Rodriguez. I spent a total of 65 minutes coordinating, documenting, and providing care for this patient excluding time spent in the performance of separately billed services. Associated attestation - Isaiah Rodriguez MD - 11/03/2023 6:54 PM EDT I have reviewed the advanced practitioner's documentation on the date of service referenced in note, and I agree with, and take responsibility for the plan of care. 58 yo Female with Severe Malnutrition related to Gastric Bypass currently follows with Weight management clinic with Dr. Wilkerson referred to [facility] for Initiation of TPN and Monitor for Re-feeding syndrome. I contacted pharmacy about TPN orders (Placed by Dr. Wilkerson) Monitor BMP, Phosphate, Magnesium BID, Triglycerides and LFT's I spent a total of 75 minutes coordinating, documenting, and providing care for this patient excluding time spent in the performance of separately billed services or time spent by another provider/QHP. documented in this encounter Consult Notes * Inge Corbett RN - 11/04/2023 3:38 PM EDTAssociated Order(s): CARE MANAGEMENT CONSULT IP See ancillary assessment note. * Joya Maria RDN - 11/04/2023 6:45 AM EDTAssociated Order(s): NUTRITION SERVICES (DIETITIAN) CONSULT IP Images from the original note were not included. CLINICAL NUTRITION CONSULT/PROGRESS NOTE [facility] [address] Name: Chandrika Hogue Location: [facility] 5A-5117/W Date: 11/04/2023 Time: 6:45 AM How patient was identified (select 2): Medical record number and Name Discussed in interdisciplinary rounds: Linda Patricia Hogue is a 58 year old female being seen for consult by provider and parenteral nutrition Primary Diagnosis: Failure to thrive in adult. Other pertinent information: Patient was admitted to [facility] at the beginning of September for initiation of TPN, during which she had refeeding complications; however she was able to be stabilized for discharge. Patient had decided not to go home on TPN at the end of previous admission. Patient had an appointment with Dr. Wilkerson to discuss restarting TPN and was decided to be admitted again for TPN and monitoring due to refeeding complications. Patient continued to have a poor appetite and only eats once daily. NUTRITION ASSESSMENT: Past medical/surgical history and medications reviewed. Food/Nutrition-Related History Nutrition Support: TPN Medication Recent History (Show up to 1 orders; newest on the left.) Start date and time 11/03/2023 2100 Adult TPN central IV [[id number]] Order Status Active Last Admin New Bag at 11/03/2023 2157 by Vangie Sullivan, MELI Dose 1,500 mL Frequency [id number] Macro Ingredients plenamine 75 g D70W 150 g Electrolytes Sodium Chloride 24 mEq sodium PHOSphate 12 mmol potassium chloride 8 mEq potassium ACEtate 32 mEq magnesium sulfate 6 mEq Additives multivitamin ADULT 10 mL trace minerals (TRALEMENT) concentrated 1 mL QS Base sterile water for injection 593.21 mL Lipids Fat emulsion 20% 30 g Energy Contribution Proteins 300 kcal Dextrose 510.01 kcal Lipids 300 kcal Total 1,110.01 kcal Electrolyte Ion Calculated Amount Sodium 40 mEq Potassium 40 mEq Calcium -- Magnesium 6 mEq Aluminum -- Phosphate 12 mmol Chloride 32 mEq Acetate 32 mEq Chloride: Acetate Ratio 1 Other Total Amino Acid 75 g Total Amino Acid/kg 2.07 g/kg Glucose Infusion Rate 2.9 mg/kg/min Osmolarity 1,128.08 Volume 1,500 mL Rate 63 mL/hr Dosing Weight 36.2 kg Infusion Site Central Total Multi-vitamins 10 mL Total Trace Elements 1 mL Route Intravenous Admin Instructions Infuse using a 1.2 micron in-line filter Diet: Regular Previously followed diet: Regular Food Allergies/Intolerances: None Adult Energy Intake: Less than 75% of estimated energy requirement for greater than 1 month (moderate/severe, chronic illness). Oral Nutrition Supplement (ONS): None Pertinent medications/vitamins/minerals/supplements: Buspar, Vitamin, Feosol, Remeron, Prilosec, Vitamin C, Vitamin E Pertinent Biochemical Data: No new labs available to review at this time. Nutrition-Focused Physical Findings: Respiratory support: Supplemental O2 Delivery: Room Air, None Nasal/Oral: No issues identified Digestive: Appetite poor Last Bowel Movement: 11/03/23 (11/04/23 0200) Cognition: Awake, alert Skin: Intact Nutrition Focused Physical Exam: NFPE deferred at this time. Anthropometrics Measurements Height: 147.3 cm (4' 10") (11/03/23 1700) Admission weight: 79 lbs Weight: 36.2 kg (79 lb 14.4 oz) (11/03/23 170) BMI: 16.7 (11/03/23 170) Usual Body Weight: Wt Readings from Last 5 Encounters: 11/03/23 36.2 kg (79 lb 14.4 oz) 10/24/23 37.6 kg (83 lb) 10/23/23 37.7 kg (83 lb 1.6 oz) 10/17/23 38.9 kg (85 lb 11.2 oz) 10/11/23 40.6 kg (89 lb 9.6 oz) Robert Lee weight: 40.2 kg Robert Lee Weight Based on BMI: 18.5 Interpretation of Weight Change Prior to Admission: No recent/significant weight change Nutrition Prescription: Energy needs: 30-35 Kcal/kg Kcal/day: 6782-8094 Based on current weight (36.2 kg) Protein needs: 1.2-1.4 gm/kg Protein: 43-51 Based on current weight Fluid needs: 30 ml/kg Fluid: 1086 ml/day Based on current weight Malnutrition: Malnutrition Present: (Unable to fully determine at this time due to inability to preform NFPE.) (11/04/23 0741) NUTRITION DIAGNOSIS: Suboptimal energy intake related to poor appetite and failure to thrive as evidenced by need for admission to administer /restart TPN. Altered GI function related to history of gastric bypass as evidenced by need for parenteral nutrition Goals: Patient will tolerate diet order and increase PO intake. Patient will tolerate TPN. NUTRITION INTERVENTION/PLAN: Continue to monitor nutrition support and PO intake. Clinical Nutrition Recommendations: Diet: Continue current nutrition plan Lab/Electrolyte: per Nutrition and Weight Management. Parenteral Nutrition: TPN - per Nutrition and Weight Management Suggested goal macronutrient recommendations for TPN: Volume: 1000 mL Dextrose: 185 grams, currently recommend 150 grams and increase as feasible. Amino acids: 55 grams Lipids: 35 grams Total kcals provided at this time, 1080 kcals. Total kcals provided from goal recommendation 1199 kcals. Monitor for drop in K and PO4 with initiation/advancement of nutrition support as patient has had poor nutritional intake for greater than 7 days. NUTRITION MONITORING AND EVALUATION: Parenteral nutrition intake for formula, rate, progress toward goal regimen Lab values warranting change with MNT Weight for trends Plan follow-up: Will follow and adjust nutrition plan of care as medical condition requires. Please contact for change(s) in patient condition requiring earlier intervention. documented in this encounter Nursing Notes * Vangie Sullivan RN - 11/07/2023 11:38 AM EDT Pt being d/c'd to home. Pt assisted with packing up belongings. Pt ambulatory in the room packing up items and independent with dressing. Discharge instructions reviewed with pt., she denies questions at this time. Pt wheeled downstairs to 4th floor via w/c. Pt d/c time approx. 1140 * Nasra Gonzales RN - 11/03/2023 6:57 PM EDT Dual Licensed Skin Assessment completed by Fabi Collier and Dangelo Gonzales. The patient is/has a N/A Skin Breakdown (includes non blanchable erythema): No * Verónica Milan RN - 11/03/2023 6:22 PM EDT VIRTUAL RN [facility] [address] Name: Chandrika Hogue Location: [place] [id number]/ Date: 11/03/2023 Time: 6:22 PM I completed the Admission Navigator. The patient was in the hospital. I was not in a hospital or clinic location. After connecting through [email or web address], the patient was identified by name and date of and / or wristband checked. Patient (or authorized legal electronics parts sales representative) was then informed that this was a Virtual Nurse visit and was being conducted confidentially over secure lines. I used a headset and other methods to ensure confidentiality for the patient. Patient acknowledged consent and understanding of privacy and security of the Virtual Nurse visit. I presented the opportunity for the patient or authorized legal electronics parts sales representative to ask any questions regarding the visit today. The patient or authorized legal electronics parts sales representative agreed to participate. Instructed patient on use of call garcia Call garcia in reach Priority TT bedside Nurse Nasra Gonzales She has screened Moderate risk for suicide r/t attempt in 2020 She reports an 18lb wt loss in last month and states she has no appetite * Nasra Gonzales RN - 11/03/2023 5:08 PM EDT Pt arrives from home for TPN. Pt reports she fell at home- right leg gave out. Denies hitting head.Back and knees are sore. Pt oriented to room and call garcia. All needs met at this time. documented in this encounter Miscellaneous Notes * Ancillary Progress Note - Inge Corbett RN - 11/07/2023 11:10 AM EDT CARE MANAGEMENT - ADULT DISCHARGE NOTE [facility] [address] Name: Chandrika Hogue Location: [facility] [id number]/D Date: 11/07/2023 Time: 11:10 AM The following coordination of care and discharge plan has been coordinated with the care team, patient, family and/or caregiver according to the patients needs and preferences. Discharge Final Discharge Plan (Complete only at time of Discharge): Home with Services (11/07/23 1110) Dialysis/Infusion - Admitted Since 11/03/2023 Service Provider Selected Services Address Phone Fax Patient Preferred Last Updated [facility] Home Infusion Services Infusion and IV Therapy [address] [facility] [id number] -- Inge Corbett RN 11/06/2023 1020 Dialysis/Infusion - Episodes Includes Dialysis/Infusion providers with selected services from the active episodes listed below CRAIG Management Episode start date: 10/13/2023 There are no active outsourced providers for this episode. Level 2 Complex Case Management Episode start date: 12/06/2022 There are no active outsourced providers for this episode. Narrative: discharge home. Patient will drive self. GHIS set up for TPN - Verified with [employer] * Communication - Mahi Delcid RN - 11/07/2023 10:48 AM EDT Appointments: You have a hospital follow up appointment with Evelyn Forbes November 08, 2023 at 10:20 am. EVELYN FORBES [address] [place] [id number] * Pt Handout (on AVS) - Mahi Delcid RN - 11/07/2023 10:45 AM EDT Images from the original note were not included. [id number] Discharge Instructions: Giving Yourself Total Parenteral Nutrition (TPN) You are going home on total parenteral nutrition (TPN). TPN is a way for you to get nutrition through a tube (catheter) in your vein. The TPN solution has the vitamins, minerals, and other nutrition you normally get by eating food. Your healthcare provider will decide if you can also eat food whileyou are on TPN. In the hospital, you learned how to take care of your catheter and how to infuse your TPN. At home,you will need to do these tasks: Use the infusion pump that sends the TPN into your veins. Start and stop your TPN infusion. Flush the catheter. Prevent problems or fix any problems that occur. Care for your catheter. Care for your pump. You will work closely with a nurse until you feel comfortable taking care of your catheter and giving yourself TPN. This sheet gives you a general overview of TPN. It has reminders and tips about what you?ll need todo each day. Ask your healthcare provider for more information about caring for your catheter, using sterile technique, adding medicines to your solution, and flushing your catheter. Other instruction sheets are available to guide you. Preparing your work area Choose a work area away from household traffic. Keep pets and children out of the room. Don?t work in the bathroom. It has too many germs. Collect your supplies. You were shown at the hospital which supplies you need. The nurse will show you how to organize what you need each day. Clean your work area like this: o Clean washable surfaces with soap and water. Dry the surface with a clean paper towel. o Wipe dust off surfaces that are not washable, such as wood. Spread a clean cloth or paper towels over the surface. o If you need to cough or sneeze, move away from the clean surface. Washing your hands Wash your hands before touching any of your supplies. To do this: Turn on the water. Wet your hands and wrists. Squirt antibacterial soap from a pump dispenser into your hands and work up a good lather. Scrub your hands thoroughly. Do this for at least 2 minutes. Rinse your hands with your fingers pointing downward. Allow the water to run down from your wrists to your fingertips. This way, the dirty water flows downward. Dry your hands with a paper towel. Turn off the faucet with this towel. When you have washed your hands, don?t touch anything except your catheter and supplies. You must wash your hands again if you touch anything else, such as furniture or your clothes. Caring for your solution Keep your solution refrigerated when not in use. Check the label on the bag to make sure it matches your prescription exactly. Don?t use the bag if it does not match the prescription. Call your supply company or your TPN nurse. Check the expiration date. Don?t use the solution if it is past the expiration date. Get a new bag from the refrigerator. Check the bag for problems. These include leaks, cloudiness, or things floating in it. Don?t usethe bag if you see any of these things. Get a new bag from the refrigerator. Warm the TPN solution by leaving it at room temperature for 1 hour before use. Never put the bagin the microwave. Add any additional medicines or vitamins to the bag before you infuse the solution. Follow the nurse's directions for starting and ending the TPN, including how to discard used supplies. Follow-up care You will work closely with a home health nurse or TPN nurse. Follow up with your healthcare provider, or as advised. When to call your healthcare provider Call your healthcare provider right away if you have any of these: Excessive thirst Upset stomach (nausea) or vomiting Weakness or shakiness Fainting or feeling like you may faint Sweating Headache Belly (abdominal) pain Sudden weight loss or gain (more than 2 pounds in 24 hours) Fever above 100.4F (38C) or higher, or as directed by your healthcare provider Shaking chills Redness, swelling, or warmth at your insertion site Fluid or pus coming from your insertion site Call 911 Call 911 if any of the following occur: Shortness of breath Heart palpitations Chest pain Last Reviewed Date: 11/24/202119993991-0650 [employer]. All rights reserved. This information is not intended as a substitute for professional medical care. Always follow your healthcare professional's instructions. * Care Plan - Lisa Ba RN - 11/07/2023 5:44 AM EDT Clinical Goal(s): patient will remain free from injury throughout this shift. (11/06/231999) Possible barriers to meeting goal(s)/advancing plan of care: weakness Stability of the patient: Moderately stable - low risk of patient condition declining or worsening Summary regarding today's goal(s): Met: patient remained free from injury throughout this shift. Recommendations: continue plan of care * Pt Handout (on AVS) - Nicole Marcial RN - 11/06/2023 10:53 PM EDT Images from the original note were not included. TPN (Total Parenteral Nutrition) - Video This is a TPN solution. This medicine has nutrients that your body needs. Your doctor may order a TPN for you if you cannot eat for several days or weeks. To view the video go to this web address: [email or web address] Or, scan this QR code with your smart phone 2023 [employer]. All Rights Reserved. * Pt Handout (on AVS) - Nicole Marcial RN - 11/06/2023 10:53 PM EDT Images from the original note were not included. [id number] Discharge Instructions: Giving Yourself Total Parenteral Nutrition (TPN) You are going home on total parenteral nutrition (TPN). TPN is a way for you to get nutrition through a tube (catheter) in your vein. The TPN solution has the vitamins, minerals, and other nutrition you normally get by eating food. Your healthcare provider will decide if you can also eat food whileyou are on TPN. In the hospital, you learned how to take care of your catheter and how to infuse your TPN. At home,you will need to do these tasks: Use the infusion pump that sends the TPN into your veins. Start and stop your TPN infusion. Flush the catheter. Prevent problems or fix any problems that occur. Care for your catheter. Care for your pump. You will work closely with a nurse until you feel comfortable taking care of your catheter and giving yourself TPN. This sheet gives you a general overview of TPN. It has reminders and tips about what you?ll need todo each day. Ask your healthcare provider for more information about caring for your catheter, using sterile technique, adding medicines to your solution, and flushing your catheter. Other instruction sheets are available to guide you. Preparing your work area Choose a work area away from household traffic. Keep pets and children out of the room. Don?t work in the bathroom. It has too many germs. Collect your supplies. You were shown at the hospital which supplies you need. The nurse will show you how to organize what you need each day. Clean your work area like this: o Clean washable surfaces with soap and water. Dry the surface with a clean paper towel. o Wipe dust off surfaces that are not washable, such as wood. Spread a clean cloth or paper towels over the surface. o If you need to cough or sneeze, move away from the clean surface. Washing your hands Wash your hands before touching any of your supplies. To do this: Turn on the water. Wet your hands and wrists. Squirt antibacterial soap from a pump dispenser into your hands and work up a good lather. Scrub your hands thoroughly. Do this for at least 2 minutes. Rinse your hands with your fingers pointing downward. Allow the water to run down from your wrists to your fingertips. This way, the dirty water flows downward. Dry your hands with a paper towel. Turn off the faucet with this towel. When you have washed your hands, don?t touch anything except your catheter and supplies. You must wash your hands again if you touch anything else, such as furniture or your clothes. Caring for your solution Keep your solution refrigerated when not in use. Check the label on the bag to make sure it matches your prescription exactly. Don?t use the bag if it does not match the prescription. Call your supply company or your TPN nurse. Check the expiration date. Don?t use the solution if it is past the expiration date. Get a new bag from the refrigerator. Check the bag for problems. These include leaks, cloudiness, or things floating in it. Don?t usethe bag if you see any of these things. Get a new bag from the refrigerator. Warm the TPN solution by leaving it at room temperature for 1 hour before use. Never put the bagin the microwave. Add any additional medicines or vitamins to the bag before you infuse the solution. Follow the nurse's directions for starting and ending the TPN, including how to discard used supplies. Follow-up care You will work closely with a home health nurse or TPN nurse. Follow up with your healthcare provider, or as advised. When to call your healthcare provider Call your healthcare provider right away if you have any of these: Excessive thirst Upset stomach (nausea) or vomiting Weakness or shakiness Fainting or feeling like you may faint Sweating Headache Belly (abdominal) pain Sudden weight loss or gain (more than 2 pounds in 24 hours) Fever above 100.4F (38C) or higher, or as directed by your healthcare provider Shaking chills Redness, swelling, or warmth at your insertion site Fluid or pus coming from your insertion site Call 911 Call 911 if any of the following occur: Shortness of breath Heart palpitations Chest pain Last Reviewed Date: 11/24/202119992942-1149 [employer]. All rights reserved. This information is not intended as a substitute for professional medical care. Always follow your healthcare professional's instructions. * Care Plan - Radha Mendieta RN - 11/06/2023 6:02 PM EDT Clinical Goal(s): Pt will remain free of falls this shift (11/06/23 0800) Possible barriers to meeting goal(s)/advancing plan of care: hospital environment, weakness Stability of the patient: Moderately stable - low risk of patient condition declining or worsening Summary regarding today's goal(s): Met: pt free of falls this shift Recommendations: continue to implement fall precautions * Diagnostic Clarification - Juan Zaragoza DO - 11/06/2023 3:43 PM EDT The patient has been diagnosed with acute renal failure on CKD2. * Hospital Course - Juan Zaragoza DO - 11/06/2023 3:22 PM EDT 58-year-old female direct admit at the direction of Dr. Wilkerson to re-initiate TPN therapy and monitor for refeeding syndrome. Patient was hospitalized back in September of 2023 for TPN initiation and monitoring for refeeding syndrome complication but patient had decided to discontinue TPN at that time prior to discharge. PMH includes tobacco use, gastric bypass in 2000, nephrectomy, severe protein energy malnutrition, bipolar disorder, depression. TPN was re-initiated during this admission. Labs andelectrolytes are within normal limits. Did discuss with Dr. Wilkerson over the phone on 11/05. He states plan is for patient to get TPN 4 days a week with re-evaluation in [address] outpatient orders in for patient's TPN. * Ancillary Progress Note - Ana Cristina Whitley RDN - 11/06/2023 10:28 AM EDT CLINICAL NUTRITION CONSULT/PROGRESS NOTE [facility] [address] Name: Chandrika Hogue Location: [facility] 5A-[id number]/D Date: 11/06/2023 Time: 10:29 AM How patient was identified (select 2): date and Name Discussed in interdisciplinary rounds: No Patricia Hogue is a 58 year old female being seen for follow-up Primary Diagnosis: Failure to thrive in adult Other pertinent information: Met with patient to follow up. Patient reports that her appetite is poor. NUTRITION ASSESSMENT: Past medical/surgical history and medications reviewed. Food/Nutrition-Related History Nutrition Support: TPN: 190 gm dextrose 35 gm lipids 65 gm amino acids Diet: Regular Previously followed diet: Regular Food Allergies/Intolerances: NKFA Adult Energy Intake: Less than 75% of estimated energy requirement for greater than 1 month (moderate/severe, chronic illness). Percentage of meal intake: 50-100% Oral Nutrition Supplement (ONS): None Pertinent medications/vitamins/minerals/supplements: calcitriol, ergocalciferol, ferrous sulfate, omeprazole, vitamin c, vitamin E, zinc Pertinent Biochemical Data: There are no biochemical abnormalities requiring a change in the nutrition plan of care. Nutrition-Focused Physical Findings: Appearance: Thin Respiratory support: Supplemental O2 Delivery: Room Air, None Nasal/Oral: No issues identified Digestive: Appetite poor Last Bowel Movement: 11/05/23 (11/05/23 1830) Cognition: Awake, alert and Oriented Skin: Intact Enteral access: N/A Nutrition Focused Physical Exam: NFPE completed on 11/06/23 Subcutaneous Fat Loss: Orbital fat pads: Severe Buccal fat: Severe Tricep: Severe Muscle Loss: Temples: Severe Clavicles: Severe Shoulders: Severe Interosseous: Severe Quadriceps: Severe Calves: Severe Anthropometrics Measurements Height: 147.3 cm (4' 10") (11/03/23 1700) Admission weight: 79 lbs Weight: 40.2 kg (88 lb 9.6 oz) (11/06/23 0715) Body mass index is 18.52 kg/m. Usual Body Weight: 37-40 kg per EHR Robert Lee weight: 47.1 kg Robert Lee Weight Based on BMI: 21.7 Interpretation of Weight Change Prior to Admission: No recent/significant weight change Weight Changes Since Admission: + 3 kg Nutrition Prescription: Energy needs: 30-35 Kcal/kg Kcal/day: 3365-3842 Based on current weight Protein needs: 1.2-1.4 gm/kg Protein: 48-56 Based on current weight Fluid needs: 30 ml/kg Fluid: 1206 ml/day Based on current weight Malnutrition: Adult Malnutrition Classification: Severe (11/06/23 1532) Malnutrition Characteristics: Fat loss;Muscle loss;Inadequate energy intake (11/06/23 1532) Malnutrition Care Plan: Patient meets ASPEN/AND criteria for severe malnutrition. Dietitian Action: Continued current care plan (11/06/23 153) NUTRITION DIAGNOSIS: Malnutrition severe related to chronic illness as evidenced by patient consuming less than 75% of estimated energy requirements x 1 month, severe fat loss, and severe muscle loss. Suboptimal energy intake related to poor appetite and failure to thrive as evidenced by need for admission to administer /restart TPN. Altered GI function related to history of gastric bypass as evidenced by need for parenteral nutrition Goals: Patient will tolerate diet order and increase PO intake. Patient will tolerate TPN. Previous diagnosis/Goals: Improving NUTRITION INTERVENTION/PLAN: Continue to monitor nutrition support Clinical Nutrition Recommendations: Diet: Continue current nutrition plan Parenteral Nutrition: TPN per Nutrition and Weight Management Volume: 1000 mL Dextrose: 185 grams Amino acids: 55 grams Lipids: 35 grams NUTRITION MONITORING AND EVALUATION: Nursing documentation flowsheets for percent meal intake Parenteral nutrition intake for formula, rate, progress toward goal regimen Renal and electrolyte profile, protein profile for possible refeeding syndrome Plan follow-up: Will follow and adjust nutrition plan of care as medical condition requires. Please contact for change(s) in patient condition requiring earlier intervention. Ana Cristina Whitley MS, RDN Clinical Nutrition [facility] Available via [employer] Text [phone] * Ancillary Progress Note - Inge Corbett RN - 11/06/2023 10:21 AM EDT CARE MANAGEMENT - ADULT TRANSITION NOTE [facility] [address] Name: Chandrika Hogue Location: [facility] 5A-5107/D Date: 11/06/2023 Time: 10:21 AM Risk Stratification Risk Stratification Psycho Social / Medical Concerns Identified: Adjustment to illness/injury;Chronic Kidney Disease;Multiple Comorbidities (11/04/23 153) Accessed [employer] to connect patients to social care resources: No (11/04/23 1536) Readmission Risk Score: 24.85 (11/06/23 0800) AM-PAC Score With Stairs : 22 (11/06/23 0800) Caregiver Information Patient Contacts Name Relation Home Work Mobile Rowdy Hogue Sibling [phone] Ariella Acosta Other - (no specific identity) [phone] Margy Phillips Other - (no specific identity) [phone] Transition of Care Checklist Narrative: Call made to [facility] to follow up on referral. Patient is active patient with therapy on hold at this time. VM left for Porsche at [facility], with name and number, to return call. Anticipated Transportation at Discharge: self Patient/Family Expectations: home with TPN Transition Planning Additional Considerations: Care Management will continue to monitor and assist with discharge planning needs * Care Plan - Adry Patel RN - 11/06/2023 5:07 AM EDT Clinical Goal(s): pt will remain free of falls this shift (11/05/23 1930) Possible barriers to meeting goal(s)/advancing plan of care: weakness Stability of the patient: Moderately unstable - medium risk of patient condition declining or worsening Summary regarding today's goal(s): Met: pt did not have a fall this shift Recommendations: continue plan of care * Care Plan - Radha Mendieta RN - 11/05/2023 5:43 PM EDT Clinical Goal(s): Pt will remain free of falls this shift (11/05/23 0930) Possible barriers to meeting goal(s)/advancing plan of care: hospital environment, weakness Stability of the patient: Moderately stable - low risk of patient condition declining or worsening Summary regarding today's goal(s): Met: pt free of falls this shift Recommendations: continue to implement fall precautions * Care Plan - Radha Mendieta RN - 11/04/2023 5:06 PM EDT Clinical Goal(s): Pt will tolerate TPN this shift (11/04/23 0730) Possible barriers to meeting goal(s)/advancing plan of care: admitting dx, continuous TPN Stability of the patient: Moderately stable - low risk of patient condition declining or worsening Summary regarding today's goal(s): Met: pt has tolerated TPN this shift Recommendations: continue to assess pt toleration of TPN * Ancillary Progress Note - Inge Corbett RN - 11/04/2023 3:38 PM EDT CARE MANAGEMENT - ADULT INITIAL SCREENING [facility] [address] Name: Chandrika Hogue Location: [address] Date: 11/04/2023 Time: 3:38 PM Discussed patient with the interdisciplinary care team. This Braille Duplicating Machine Operator performed a chart review and met with patient at bedside to complete admission screen and assessed needs for transition planning. The health care marketing specialist role and services were explained and emotional support was provided. Chief Complaint: No chief complaint on file. Prior Living Arrangements What was your living situation prior to admission/observation?: Alone;Independently (11/04/231535) Living Quarters: Apartment (11/04/231535) Number of steps to enter living quarters:: 0 (11/04/231535) Do you have serious difficulty walking or climbing stairs? (5 years old or older): Yes (uses cane and has rollator on order) (11/03/23 4169) History of falling: Yes (11/04/23 0730) Prior Level of Functioning Describe the patient's ability prior to admission/observation to perform ADLs: Performs independently (11/04/231535) Requires assistance with: Bathing (11/04/23 0936) Describe the patient's mobility status prior to admission: Patient ambulates independently (11/04/231535) Patient uses assistive device: Yes (11/04/231535) If yes, choose:: Cane (11/04/231535) Caregiver Information Patient Contacts Name Relation Home Work Mobile Rowdy Hogue [phone] Ariella Acosta Other - (no specific identity) [phone] Margy Phillips Other - (no specific identity) [phone] Risk Stratification/Psychosocial/Care Gaps Risk Stratification Psycho Social / Medical Concerns Identified: Adjustment to illness/injury;Chronic Kidney Disease;Multiple Comorbidities (11/04/231535) Accessed [facility] to connect patients to social care resources: No (11/04/231535) Readmission Risk Score: 24.03 (11/04/23 1200) AM-PAC Score With Stairs : 22 (11/04/23 0730) Prior to Admission Services Services Prior to Admission PATROL OFFICER Services (Services received within the last 30 days with exception, Psych within last two years): Durable Medical Equipment (11/04/231535) PATROL OFFICER Durable Medical Equipment (DME) in home: Cane (11/04/231535) PATROL OFFICER Transportation (Services received within the last 30 days): Patient drives self (11/04/231535) Outpatient Braille Duplicating Machine Operator: No care steam distribution supervisor to display Patient/Family Expectations: home with TPN Met with patient at bedside to complete admission screening and discuss discharge planning. Patientstates nothing has changed. States was misunderstood at discharge last time - wanted a break from the TPN, not quit permanently. Patient lives alone independently in an apartment with [address] in front and [address] in back. Independent with ADL's an IADL's. Ambulates with a cane. 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 Plans to restart TPN with [facility] and go to [facility] for labs andline care as previous. Patient drives or friend drives as needed. For further screening information, please refer to the Care Management flow document. documented in this encounter Plan of Treatment Upcoming Encounters Date Type Department Care Team (Late st Contact Info) Description 11/08/2023 10:20 AM EDT Office Visit Family Medicine [address] [place] [address] Evelyn Andrews MD [address] [place] [address] [place] [address] 11/29/2023 5:00 PM EDT Telemedicine Psychiatry Vanessa Alex [address] [place] [phone] Alexis Serna MD [address] [facility] [place] [phone] 12/04/2023 3:45 PM EDT Office Visit Urology, [facility] [address] [facility] [place] [address] Christopher Almonte MD [address] [facility] [address] [place] [address] 04/29/2024 8:40 AM EST Office Visit Neurology [facility] [address] [facility] [place] [address] Aris Mohr MD [address] [facility] [place] [address] 09/16/2024 11:20 AM EDT Office Visit Neurology [facility] [address] [facility] [place] [address] Jodee Austin MD [address] [place] [address] Scheduled Orders Name Type Priority Associated Diagnoses Orde r Schedule EKG EKG STAT Chest pain One Time for 1 Occurrences starting 11/03/2023 until 11/03/2023 Health Maintenance Due Date Last Done Comments [...] 024, 08/23/2022, 09/20/2021 CKD HGB USE SMARTSET 70047 11/06/202411/06, 11/06/2023, 11/04/2023, Additional history exists CKD PHOS USE SMARTSET 18194 11/06/202410/24, 11/06/2023, 11/05/2023, Additional history exists DTaP,Tdap,and [...] this encounter Medical Devices Implanted Type Area Cancer Program Coordinator Device Identifier Shelf Expiration Date Model / Serial / Lot Stent Axios 20mm - [id number] Implanted:Qty: 1 on 01/04/2021 by Leyda Garcia MD at OR [facility] N/A: Stomach [employer] : ENDOSCOPY 11/20/2021 [id number] / / [id number] documented as of this encounter Procedures Procedure Name Priority Date/Time Associated Diagnosis Comments BASIC METABOLIC PANEL Routine 11/07/2023 4:25 AM EDT PHOSPHORUS Routine 11/07/2023 4:25 AM EDT CALCIUM, IONIZED Routine 11/07/2023 4:25 AM EDT CBC Routine 11/07/2023 4:25 AM EDT MAGNESIUM Routine 11/07/2023 4:25 AM EDT BASIC METABOLIC PANEL Routine 11/06/2023 3:36 AM EDT PHOSPHORUS Routine 11/06/2023 3:36 AM EDT CALCIUM, IONIZED Routine 11/06/2023 3:36 AM EDT CBC Routine 11/06/2023 3:36 AM EDT MAGNESIUM Routine 11/06/2023 3:36 AM EDT BASIC METABOLIC PANEL Routine 11/05/2023 7:36 PM EDT PHOSPHORUS Routine 11/05/2023 7:36 PM EDT MAGNESIUM Routine 11/05/2023 7:36 PM EDT BASIC METABOLIC PANEL Routine 11/05/2023 8:09 AM EDT PHOSPHORUS Routine 11/05/2023 8:09 AM EDT CALCIUM, IONIZED Routine 11/05/2023 8:09 AM EDT MAGNESIUM Routine 11/05/2023 8:09 AM EDT BASIC METABOLIC PANEL Routine 11/04/2023 7:43 PM EDT PHOSPHORUS Routine 11/04/2023 7:43 PM EDT MAGNESIUM Routine 11/04/2023 7:43 PM EDT BASIC METABOLIC PANEL Routine 11/04/2023 4:44 AM EDT PHOSPHORUS Routine 11/04/2023 4:44 AM EDT CALCIUM, IONIZED Routine 11/04/2023 4:44 AM EDT CBC Routine 11/04/2023 4:44 AM EDT MAGNESIUM Routine 11/04/2023 4:44 AM EDT CULTURE, URINE, QUANTITATIVE STAT 11/04/2023 2:34 AM EDT MICROSCOPIC EXAM, URINE STAT 11/04/2023 2:34 AM EDT URINALYSIS, REFLEX TO MICROSCOPIC STAT 11/04/2023 2:34 AM EDT MAGNESIUM Routine 11/03/2023 7:49 PM EDT XR CHEST 1 VIEW Routine 11/03/2023 6:29 PM EDT HEPATIC FUNCTION PANEL STAT 11/03/2023 6:10 PM EDT BASIC METABOLIC PANEL STAT 11/03/2023 6:10 PM EDT PHOSPHORUS STAT 11/03/2023 6:10 PM EDT CBC STAT 11/03/2023 6:10 PM EDT MAGNESIUM STAT 11/03/2023 6:10 PM EDT documented in this encounter Results * PHOSPHORUS (11/07/2023 4:25 AM EDT) Phosphorus 3.6 2.5 - 4.8 mg/dL 11/07/2023 5:13 AM EDT LABORATORY [facility] Blood Venous blood specimen / Unknown Venipuncture / Unknown 11/07/2023 4:25 AM EDT 11/07/2023 4:38 AM EDT Vic Wilkerson DO LAB BLOOD ORDERAB LES LABORATORY [address] [address] * MAGNESIUM (11/07/2023 4:25 AM EDT) Magnesium 2.0 1.5 - 2.6 mg/dL 11/07/2023 5:13 AM EDT LABORATORY GL Blood Venous blood specimen / Unknown Venipuncture / Unknown 11/07/2023 4:25 AM EDT 11/07/2023 4:38 AM EDT Vic Wilkerson DO LAB BLOOD ORDERAB LES LABORATORY [address] [place] [address] * (ABNORMAL) BASIC METABOLIC PANEL (11/07/2023 4:25 AM EDT) BUN 48(H) 6 - 20 mg/dL 11/07/2023 5:13 AM EDT LABORATORY [facility] Creatinine 1.1(H) 0.5 - 1.0 mg/dL 11/07/2023 5:13 AM EDT LABORATORY [facility] Estimated Glomerular Filtration Rate 58(L) >=60 mL/min 11/07/2023 5:13 AM EDT LABORATORY [facility] Comment:eGFR is calculated b ased on the CKD-EPI 2020 equation Sodium 141 135 - 146 mmol/L 11/07/2023 5:13 AM EDT LABORATORY [facility] Potassium 4.1 3.5 - 5.1 mmol/L 11/07/2023 5:13 AM EDT LABORATORY [facility] Chloride 110(H) 98 - 107 mmol/L 11/07/2023 5:13 AM EDT LABORATORY [facility] CO2 18(L) 22 - 32 mmol/L 11/07/2023 5:13 AM EDT LABORATORY [facility] Anion Gap 13 7 - 15 mmol/L 11/07/2023 5:13 AM EDT LABORATORY [facility] Glucose 116 70 - 120 mg/dL 11/07/2023 5:13 AM EDT LABORATORY [facility] Calcium 8.7 8.4 - 10.2 mg/dL 11/07/2023 5:13 AM EDT LABORATORY [facility] Blood Venous blood specimen / Unknown Venipuncture / Unknown 11/07/2023 4:25 AM EDT 11/07/2023 4:38 AM EDT Vic Wilkerson DO LAB BLOOD ORDERAB LES [facility] [address] [address] * (ABNORMAL) CBC (11/07/2023 4:25 AM EDT) WBC 6.35 4.00 - 10.80 K/uL 11/07/2023 4:43 AM EDT LABORATORY [facility] RBC 2.96 3.85 - 5.15 M/uL 11/07/2023 4:43 AM EDT LABORATORY GL HGB 9.0(L) 12.0 - 15.3 g/dL 11/07/2023 4:43 AM EDT LABORATORY GL HCT 29.1(L) 36.0 - 45.2 % 11/07/2023 4:43 AM EDT LABORATORY [facility] MCV 98.3 81.5 - 97.5 fL 11/07/2023 4:43 AM EDT LABORATORY [facility] MCH 30.4 27.0 - 34.0 pg 11/07/2023 4:43 AM EDT LABORATORY [facility] MCHC 30.9 32.0 - 36.0 g/dL 11/07/2023 4:43 AM EDT LABORATORY [facility] RDW 18.4 11.5 - 15.5 % 11/07/2023 4:43 AM EDT LABORATORY [facility] PLT 150 140 - 400 K/uL 11/07/2023 4:43 AM EDT LABORATORY [facility] MPV 12.3 6.6 - 11.1 fL 11/07/2023 4:43 AM EDT LABORATORY [facility] nRBCs 0 <=0 /100 WBCs 11/07/2023 4:43 AM EDT LABORATORY [facility] Blood Venous blood specimen / Unknown Venipuncture / Unknown 11/07/2023 4:25 AM EDT 11/07/2023 4:39 AM EDT Juan Zaragoza DO LAB BLOOD ORDERABLES LABORATORY [address] [address] * CALCIUM, IONIZED (11/07/2023 4:25 AM EDT) Calcium, Ionized 1.27 1.13 - 1.32 mmol/L 11/07/2023 5:40 AM EDT LABORATORY [facility] Comment:This test was develo ped and its performance characteristics dtermined by [employer]. It has not been cleared or approved by the [place] Food and Drug Administration Blood Venous blood specimen / Unknown Venipuncture / Unknown 11/07/2023 4:25 AM EDT 11/07/2023 4:38 AM EDT Juan Zaragoza DO LAB BLOOD ORDERABLES Performing Organization Address [facility]/ZIP Co de Phone Number LABORATORY [address] [address] * MAGNESIUM (11/06/2023 3:36 AM EDT) Magnesium 2.3 1.5 - 2.6 mg/dL 11/06/2023 7:35 AM EDT LABORATORY [facility] Blood Venous blood specimen / Unknown Venipuncture / Unknown 11/06/2023 3:36 AM EDT 11/06/2023 3:39 AM EDT Chandrika SALMERON LAB BLOOD OR DERABLES LABORATORY [address] [address] * PHOSPHORUS (11/06/2023 3:36 AM EDT) Phosphorus 3.1 2.5 - 4.8 mg/dL 11/06/2023 7:35 AM EDT LABORATORY [facility] Blood Venous blood specimen / Unknown Venipuncture / Unknown 11/06/2023 3:36 AM EDT 11/06/2023 3:39 AM EDT Chandrika SALMERON LAB BLOOD OR DERABLES Performing Organization Address City/[facility]/ZIP Co de Phone Number LABORATORY [address] [place] [address] * (ABNORMAL) BASIC METABOLIC PANEL (11/06/2023 3:36 AM EDT) BUN 48(H) 6 - 20 mg/dL 11/06/2023 7:35 AM EDT LABORATORY [facility] Creatinine 1.2(H) 0.5 - 1.0 mg/dL 11/06/2023 7:35 AM EDT LABORATORY [facility] Estimated Glomerular Filtration Rate 54(L) >=60 mL/min 11/06/2023 7:35 AM EDT LABORATORY [facility] Comment:eGFR is calculated b ased on the CKD-EPI 2020 equation Sodium 143 135 - 146 mmol/L 11/06/2023 7:35 AM EDT LAB[facility]ATORY [facility] Potassium 4.5 3.5 - 5.1 mmol/L 11/06/2023 7:35 AM EDT [facility] Chloride 114(H) 98 - 107 mmol/L 11/06/2023 7:35 AM EDT [facility] CO2 17(L) 22 - 32 mmol/L 11/06/2023 7:35 AM EDT [facility] Anion Gap 12 7 - 15 mmol/L 11/06/2023 7:35 AM EDT [facility] Glucose 127(H) 70 - 120 mg/dL 11/06/2023 7:35 AM EDT LAB[facility] Calcium 8.7 8.4 - 10.2 mg/dL 11/06/2023 7:35 AM EDT [facility] Blood Venous blood specimen / Unknown Venipuncture / Unknown 11/06/2023 3:36 AM EDT 11/06/2023 3:39 AM EDT Chandrika SALMERON LAB BLOOD OR DERABLES LABORATORY [facility] [address] [place] [address] * (ABNORMAL) CBC (11/06/2023 3:36 AM EDT) WBC 6.87 4.00 - 10.80 K/uL 11/06/2023 3:43 AM EDT LABORATORY [facility] RBC 3.12 3.85 - 5.15 M/uL 11/06/2023 3:43 AM EDT LABORATORY [facility] HGB 9.5(L) 12.0 - 15.3 g/dL 11/06/2023 3:43 AM EDT LABORATORY [facility] HCT 30.7(L) 36.0 - 45.2 % 11/06/2023 3:43 AM EDT LABORATORY [facility] MCV 98.4 81.5 - 97.5 fL 11/06/2023 3:43 AM EDT LABORATORY [facility] MCH 30.4 27.0 - 34.0 pg 11/06/2023 3:43 AM EDT LABORATORY [facility] MCHC 30.9 32.0 - 36.0 g/dL 11/06/2023 3:43 AM EDT LABORATORY [facility] RDW 18.3 11.5 - 15.5 % 11/06/2023 3:43 AM EDT LABORATORY [facility] PLT 146 140 - 400 K/uL 11/06/2023 3:43 AM EDT LABORATORY [facility] MPV 12.6 6.6 - 11.1 fL 11/06/2023 3:43 AM EDT LABORATORY [facility] nRBCs 0 <=0 /100 WBCs 11/06/2023 3:43 AM EDT LABORATORY [facility] Blood Venous blood specimen / Unknown Venipuncture / Unknown 11/06/2023 3:36 AM EDT 11/06/2023 3:39 AM EDT Juan Zaragoza DO LAB BLOOD ORDERABLES LABORATORY [facility] [address] [place] [address] * CALCIUM, IONIZED (11/06/2023 3:36 AM EDT) Pathologist [facility] [place] Calcium, Ionized 1.29 1.13 - 1.32 mmol/L 11/06/2023 4:26 AM EDT LABORATORY [facility] Comment:This test was develo ped and its performance characteristics dtermined by [employer]. It has not been cleared or approved by the [place] Food and Drug Administration Blood Venous blood specimen / Unknown Venipuncture / Unknown 11/06/2023 3:36 AM EDT 11/06/2023 3:39 AM EDT Juan Zaragoza LAB BLOOD ORDERABLES Performing Organization Address [facility] Co de Phone Number LABORATORY [address] [phone] * MAGNESIUM (11/05/2023 7:36 PM EDT) Magnesium 2.1 1.5 - 2.6 mg/dL 11/05/2023 7:56 PM EDT LABORATORY [facility] Blood Venous blood specimen / Unknown Venipuncture / Unknown 11/05/2023 7:36 PM EDT 11/05/2023 7:38 PM EDT Chandrika Camila SALMERON LAB BLOOD OR DERABLES Performing Organization Address [facility] Co de Phone Number LABORATORY [address] [phone] * PHOSPHORUS (11/05/2023 7:36 PM EDT) Phosphorus 2.7 2.5 - 4.8 mg/dL 11/05/2023 7:56 PM EDT LABORATORY [facility] Blood Venous blood specimen / Unknown Venipuncture / Unknown 11/05/2023 7:36 PM EDT 11/05/2023 7:38 PM EDT Chandrika Camila SALMERON LAB BLOOD OR DERABLES Performing Organization Address [facility] de Phone Number LABORATORY [address] [phone] * (ABNORMAL) BASIC METABOLIC PANEL (11/05/2023 7:36 PM EDT) BUN 47(H) 6 - 20 mg/dL 11/05/2023 7:56 PM EDT LABORATORY [facility] Creatinine 1.3(H) 0.5 - 1.0 mg/dL 11/05/2023 7:56 PM EDT LAB[facility]ORY [facility] Estimated Glomerular Filtration Rate 49(L) >=60 mL/min 11/05/2023 7:56 PM EDT [facility] Comment:eGFR is calculated b ased on the CKD-EPI 2020 equation Sodium 142 135 - 146 mmol/L 11/05/2023 7:56 PM EDT LAB[facility]ORY [facility] Potassium 4.1 3.5 - 5.1 mmol/L 11/05/2023 7:56 PM EDT [facility] Chloride 116(H) 98 - 107 mmol/L 11/05/2023 7:56 PM EDT [facility] CO2 16(L) 22 - 32 mmol/L 11/05/2023 7:56 PM EDT [facility] Anion Gap 10 7 - 15 mmol/L 11/05/2023 7:56 PM EDT LAB[facility]ORY [facility] Glucose 89 70 - 120 mg/dL 11/05/2023 7:56 PM EDT [facility] Calcium 8.5 8.4 - 10.2 mg/dL 11/05/2023 7:56 PM EDT [facility] Blood Venous blood specimen / Unknown Venipuncture / Unknown 11/05/2023 7:36 PM EDT 11/05/2023 7:38 PM EDT Chandrika SALMERON LAB BLOOD OR DERABLES LABORATORY [address] [address] * CALCIUM, IONIZED (11/05/2023 8:09 AM EDT) [facility] Calcium, Ionized 1.28 1.13 - 1.32 mmol/L 11/05/2023 8:31 AM EDT LAB[facility]ORY [facility] Comment:This test was tanika burt and its performance characteristics dtermined by [employer]. It has not been cleared or approved by the US Food and Drug Administration Blood Venous blood specimen / Unknown Venipuncture / Unknown 11/05/2023 8:09 AM EDT 11/05/2023 8:15 AM EDT Juan Zaragoza DO LAB BLOOD ORDERABLES Performing Organization Address City/[facility]/ZIP Co de Phone Number LABORATORY [address] [address] * MAGNESIUM (11/05/2023 8:09 AM EDT) Magnesium 2.1 1.5 - 2.6 mg/dL 11/05/2023 8:42 AM EDT LABORATORY [facility] Blood Venous blood specimen / Unknown Venipuncture / Unknown 11/05/2023 8:09 AM EDT 11/05/2023 8:15 AM EDT Chandrika Camila SALMERON LAB BLOOD OR DERABLES Performing Organization Address City/[facility]/ZIP Co de Phone Number LABORATORY [address] [address] * PHOSPHORUS (11/05/2023 8:09 AM EDT) Phosphorus 2.5 2.5 - 4.8 mg/dL 11/05/2023 8:42 AM EDT LABORATORY [facility] Blood Venous blood specimen / Unknown Venipuncture / Unknown 11/05/2023 8:09 AM EDT 11/05/2023 8:15 AM EDT Chandrika Camila SALMERON LAB BLOOD OR DERABLES LABORATORY [address] [address] * (ABNORMAL) BASIC METABOLIC PANEL (11/05/2023 8:09 AM EDT) BUN 40(H) 6 - 20 mg/dL 11/05/2023 8:42 AM EDT LABORATORY [facility] Creatinine 1.0 0.5 - 1.0 mg/dL 11/05/2023 8:42 AM EDT LABORATORY GL Estimated Glomerular Filtration Rate 64 >=60 mL/min 11/05/2023 8:42 AM EDT LABORATORY [facility] Comment:eGFR is calculated b ased on the CKD-EPI 2020 equation Sodium 139 135 - 146 mmol/L 11/05/2023 8:42 AM EDT LAB[facility]ORY [facility] Potassium 4.5 3.5 - 5.1 mmol/L 11/05/2023 8:42 AM EDT [facility] Chloride 115(H) 98 - 107 mmol/L 11/05/2023 8:42 AM EDT [facility] CO2 18(L) 22 - 32 mmol/L 11/05/2023 8:42 AM EDT LAB[facility] Anion Gap 6(L) 7 - 15 mmol/L 11/05/2023 8:42 AM EDT LAB[facility] Glucose 139(H) 70 - 120 mg/dL 11/05/2023 8:42 AM EDT [facility] Calcium 8.5 8.4 - 10.2 mg/dL 11/05/2023 8:42 AM EDT [facility] Blood Venous blood specimen / Unknown Venipuncture / Unknown 11/05/2023 8:09 AM EDT 11/05/2023 8:15 AM EDT Chandrika SALMERON LAB BLOOD OR DERABLES Performing Organization Address City/[facility]/ZIP Co de Phone Number LABORATORY [address] [address] * MAGNESIUM (11/04/2023 7:43 PM EDT) Magnesium 2.0 1.5 - 2.6 mg/dL 11/04/2023 8:42 PM EDT LAB[facility]ATORY [facility] Blood Venous blood specimen / Unknown Venipuncture / Unknown 11/04/2023 7:43 PM EDT 11/04/2023 8:20 PM EDT Chandrika SALMERON LAB BLOOD OR DERABLES Performing Organization Address City/[facility] Co de Phone Number LABORATORY [address] [phone] * (ABNORMAL) PHOSPHORUS (11/04/2023 7:43 PM EDT) Phosphorus 2.3(L) 2.5 - 4.8 mg/dL 11/04/2023 8:43 PM EDT LAB[facility] Blood Venous blood specimen / Unknown Venipuncture / Unknown 11/04/2023 7:43 PM EDT 11/04/2023 8:20 PM EDT Chandrika Camila Zee SALMERON LAB BLOOD OR DERABLES [facility] [address] [place] [address] * (ABNORMAL) BASIC METABOLIC PANEL (11/04/2023 7:43 PM EDT) BUN 34(H) 6 - 20 mg/dL 11/04/2023 8:42 PM EDT LAB[facility] Creatinine 1.1(H) 0.5 - 1.0 mg/dL 11/04/2023 8:42 PM EDT LAB[facility]ORY [facility] Estimated Glomerular Filtration Rate 56(L) >=60 mL/min 11/04/2023 8:42 PM EDT LAB[facility] Comment:eGFR is calculated b ased on the CKD-EPI 2020 equation Sodium 135 135 - 146 mmol/L 11/04/2023 8:42 PM EDT LAB[facility] Potassium 4.1 3.5 - 5.1 mmol/L 11/04/2023 8:42 PM EDT LAB[facility] Chloride 110(H) 98 - 107 mmol/L 11/04/2023 8:42 PM EDT [facility] CO2 13(L) 22 - 32 mmol/L 11/04/2023 8:42 PM EDT LAB[facility]ORY [facility] Anion Gap 12 7 - 15 mmol/L 11/04/2023 8:42 PM EDT [facility] Glucose 154(H) 70 - 120 mg/dL 11/04/2023 8:42 PM EDT LAB[facility]ORY [facility] Calcium 7.8(L) 8.4 - 10.2 mg/dL 11/04/2023 8:42 PM EDT LAB[facility] Blood Venous blood specimen / Unknown Venipuncture / Unknown 11/04/2023 7:43 PM EDT 11/04/2023 8:20 PM EDT Chandrika SALMERON LAB BLOOD OR DERABLES Performing Organization Address [facility] Co de Phone Number LABORATORY [address] [address] * MAGNESIUM (11/04/2023 4:44 AM EDT) Magnesium 1.7 1.5 - 2.6 mg/dL 11/04/2023 8:00 AM EDT LABORATORY [facility] Blood Venous blood specimen / Unknown Venipuncture / Unknown 11/04/2023 4:44 AM EDT 11/04/2023 5:15 AM EDT Chandrika SALMERON LAB BLOOD OR DERABLES Performing Organization Address [facility] Co de Phone Number LABORATORY [address] [address] * PHOSPHORUS (11/04/2023 4:44 AM EDT) Phosphorus 2.9 2.5 - 4.8 mg/dL 11/04/2023 8:00 AM EDT LABORATORY [facility] Blood Venous blood specimen / Unknown Venipuncture / Unknown 11/04/2023 4:44 AM EDT 11/04/2023 5:15 AM EDT Chandrika SALMERON LAB BLOOD OR DERABLES Performing Organization Address [facility] Co de Phone Number LABORATORY [address] [phone] * (ABNORMAL) BASIC METABOLIC PANEL (11/04/2023 4:44 AM EDT) BUN 30(H) 6 - 20 mg/dL 11/04/2023 8:00 AM EDT LABORATORY [facility] Creatinine 1.2(H) 0.5 - 1.0 mg/dL 11/04/2023 8:00 AM EDT LABORATORY [facility] Estimated Glomerular Filtration Rate 50(L) >=60 mL/min 11/04/2023 8:00 AM EDT LAB[facility]ORY [facility] Comment:eGFR is calculated b ased on the CKD-EPI 2020 equation Sodium 134(L) 135 - 146 mmol/L 11/04/2023 8:00 AM EDT LAB[facility]ORY [facility] Potassium 4.8 3.5 - 5.1 mmol/L 11/04/2023 8:00 AM EDT LAB[facility]ORY [facility] Chloride 111(H) 98 - 107 mmol/L 11/04/2023 8:00 AM EDT LAB[facility] CO2 11(L) 22 - 32 mmol/L 11/04/2023 8:00 AM EDT LAB[facility]ORY [facility] Anion Gap 12 7 - 15 mmol/L 11/04/2023 8:00 AM EDT LAB[facility]ORY [facility] Glucose 136(H) 70 - 120 mg/dL 11/04/2023 8:00 AM EDT LAB[facility]ORY [facility] Calcium 7.8(L) 8.4 - 10.2 mg/dL 11/04/2023 8:00 AM EDT [facility] Blood Venous blood specimen / Unknown Venipuncture / Unknown 11/04/2023 4:44 AM EDT 11/04/2023 5:15 AM EDT Chandrika SALMERON LAB BLOOD OR DERABLES Performing Organization Address City/State/[facility] Co de Phone Number LABORATORY [address] [address] * (ABNORMAL) CBC (11/04/2023 4:44 AM EDT) WBC 7.23 4.00 - 10.80 K/uL 11/04/2023 5:22 AM EDT LAB[facility]ATORY [facility] RBC 3.23 3.85 - 5.15 M/uL 11/04/2023 5:22 AM EDT LAB[facility]ORY [facility] HGB 9.6(L) 12.0 - 15.3 g/dL 11/04/2023 5:22 AM EDT LAB[facility]ATORY [facility] HCT 32.0(L) 36.0 - 45.2 % 11/04/2023 5:22 AM EDT LAB[facility]ATORY [facility] MCV 99.1 81.5 - 97.5 fL 11/04/2023 5:22 AM EDT LAB[facility]ATORY [facility] MCH 29.7 27.0 - 34.0 pg 11/04/2023 5:22 AM EDT LABORATORY [facility] MCHC 30.0 32.0 - 36.0 g/dL 11/04/2023 5:22 AM EDT LABORATORY [facility] RDW 17.3 11.5 - 15.5 % 11/04/2023 5:22 AM EDT LABORATORY [facility] PLT 137(L) 140 - 400 K/uL 11/04/2023 5:22 AM EDT LABORATORY [facility] MPV 12.5 6.6 - 11.1 fL 11/04/2023 5:22 AM EDT LABORATORY [facility] nRBCs 0 <=0 /100 WBCs 11/04/2023 5:22 AM EDT LABORATORY [facility] Blood Venous blood specimen / Unknown Venipuncture / Unknown 11/04/2023 4:44 AM EDT 11/04/2023 5:15 AM EDT Chandrika SALMERON LAB BLOOD OR DERABLES Performing Organization Address City/[facility]/ZIP Co de Phone Number LABORATORY [address] [address] * CALCIUM, IONIZED (11/04/2023 4:44 AM EDT) [facility] Calcium, Ionized 1.21 1.13 - 1.32 mmol/L 11/04/2023 5:45 AM EDT LABORATORY [facility] Comment:This test was develo ped and its performance characteristics dtermined by [employer]. It has not been cleared or approved by the [place] Food and Drug Administration Blood Venous blood specimen / Unknown Venipuncture / Unknown 11/04/2023 4:44 AM EDT 11/04/2023 5:15 AM EDT Vic Wilkerson DO LAB BLOOD ORDERAB LES Performing Organization Address [facility]/ZIP Co de Phone Number LABORATORY [address] [phone] * MICROSCOPIC EXAM, URINE (11/04/2023 2:34 AM EDT) Pathologist [facility] [place] RBC, Urine 0-2 0 - 2 /HPF 11/04/2023 2:52 AM EDT LABORATORY [facility] WBC, Urine 0-2 0 - 2 /HPF 11/04/2023 2:52 AM EDT LABORATORY GL Bacteria, Urine 0-25 0 - 25 /HPF 11/04/2023 2:52 AM EDT LABORATORY [facility] Urine Urine specimen obtained by clean catch procedure / Unknown 11/04/2023 2:34 AM EDT 11/04/2023 2:38 AM EDT Chandrika SALMERON LAB URINE OR DERABLES Performing Organization Address City/[facility]/ZIP Co de Phone Number LABORATORY [address] [address] * CULTURE, URINE, QUANTITATIVE (11/04/2023 2:34 AM EDT) Culture Growth No significant growth 11/05/2023 9:35 AM EDT LABORATORY [facility] Urine Urine specimen / Unknown 11/04/2023 2:34 AM EDT 11/04/2023 2:38 AM EDT Chandrika SALMERON LAB MICRO - GENERAL ORDERABLES LABORATORY [facility] [address] [place] [address] * (ABNORMAL) URINALYSIS, REFLEX TO MICROSCOPIC (11/04/2023 2:34 AM EDT) Color, Urine Yellow Light Yellow, Yellow, Dark Yellow 11/04/2023 2:52 AM EDT LABORATORY [facility] Clarity, Urine Clear Clear 11/04/2023 2:52 AM EDT LABORATORY GL Glucose, Urine Negative Negative mg/dL 11/04/2023 2:52 AM EDT LABORATORY GL Bilirubin, Urine Negative Negative 11/04/2023 2:52 AM EDT LABORATORY GL Ketone, Urine Negative Negative mg/dL 11/04/2023 2:52 AM EDT LABORATORY GL Specific [place], Urine 1.020 1.003 - 1.030 11/04/2023 2:52 AM EDT LABORATORY [facility] Blood, Urine Trace(A) Negative 11/04/2023 2:52 AM EDT LAB[facility]ATORY [facility] pH, Urine 6.0 5.0 - 7.5 Units 11/04/2023 2:52 AM EDT LAB[facility]ORY [facility] Protein, Urine Trace(A) Negative mg/dL 11/04/2023 2:52 AM EDT LAB[facility]ATORY [facility] Urobilinogen, Urine 0.2 0.2, 1.0 mg/dL 11/04/2023 2:52 AM EDT LAB[facility]ATORY [facility] Nitrite, Urine Negative Negative 11/04/2023 2:52 AM EDT LAB[facility]ATORY [facility] Esterase, Urine Negative Negative 11/04/2023 2:52 AM EDT LAB[facility]ATORY [facility] Urine Urine specimen obtained by clean catch procedure / Unknown 11/04/2023 2:34 AM EDT 11/04/2023 2:38 AM EDT Chandrika SALMERON LAB URINE OR DERABLES Performing Organization Address City/[facility]/ZIP Co de Phone Number LABORATORY [address] [phone] * MAGNESIUM (11/03/2023 7:49 PM EDT) [facility] Magnesium 2.0 1.5 - 2.6 mg/dL 11/03/2023 8:08 PM EDT LABORATORY GL Blood Venous blood specimen / Unknown Venipuncture / Unknown 11/03/2023 7:49 PM EDT 11/03/2023 7:53 PM EDT Chandrika Mcdonoughel [employer]IP CUTTING MACHINE OPERATOR LAB BLOOD OR DERABLES Performing Organization Address City/[facility]/ZIP Co de Phone Number LABORATORY [address] [phone] * XR CHEST 1 VIEW (11/03/2023 6:29 PM EDT) Anatomical Region Laterality Modality Chest Digital Radiogra phy 11/03/2023 5:59 PM EDT Impressions 11/03/2023 7:36 PM EDT IMPRESSION: No evidence of acute intrathoracic pathology. THIS DOCUMENT HAS BEEN ELECTRONICALLY SIGNED BY SIMEON DAVIES MD Narrative 11/03/2023 7:36 PM EDT PROCEDURE INFORMATION: Exam: XR Chest Exam date and time: 11/03/2023 5:59 PM Age: 58 years old Clinical indication: Other: F/u. No active chest complaints. ; Additional info: F/u pna last month TECHNIQUE: Imaging protocol: Radiologic exam of the chest. Views: 1 view. COMPARISON: DX XR CHEST 1 VIEW 10/09/2023 10:38 AM FINDINGS: Lungs: Hyperaeration. No consolidation. Pleural spaces: Unremarkable. No pleural effusion. No pneumothorax. Heart/Mediastinum: Stable size and configuration. MediPort in place. Bones/joints: Unchanged. Other: Right upper quadrant clips. Procedure Note Simeon Davies MD - 11/03/2023 PROCEDURE INFORMATION: Exam: XR Chest Exam date and time: 11/03/2023 5:59 PM Age: 58 years old Clinical indication: Other: F/u. No active chest complaints. ; Additionalinfo: F/u pna last month TECHNIQUE: Imaging protocol: Radiologic exam of the chest. Views: 1 view. COMPARISON: DX XR CHEST 1 VIEW 10/09/2023 10:38 AM FINDINGS: Lungs: Hyperaeration. No consolidation. Pleural spaces: Unremarkable. No pleural effusion. No pneumothorax. Heart/Mediastinum: Stable size and configuration. MediPort in place. Bones/joints: Unchanged. Other: Right upper quadrant clips. IMPRESSION IMPRESSION: No evidence of acute intrathoracic pathology. THIS DOCUMENT HAS BEEN ELECTRONICALLY SIGNED BY SIMEON DAVIES MD Chandrika SALMERON RADIOLOGY (R AD GENERAL) * (ABNORMAL) HEPATIC FUNCTION PANEL (11/03/2023 6:10 PM EDT) Albumin 3.8 3.8 - 5.0 g/dL 11/03/2023 6:37 PM EDT LABORATORY [facility] AST 19 10 - 35 U/L 11/03/2023 6:37 PM EDT LABORATORY [facility] Alkaline Phosphatase 261(H) 35 - 130 U/L 11/03/2023 6:37 PM EDT LABORATORY [facility] ALT 14 10 - 35 U/L 11/03/2023 6:37 PM EDT LAB[facility]ATORY [facility] Bilirubin, Total <0.2 <=1.2 mg/dL 11/03/2023 6:37 PM EDT LABORATORY [facility] Bilirubin, Direct <0.2 0.0 - 0.3 mg/dL 11/03/2023 6:37 PM EDT LABORATORY [facility] Protein 6.8 6.0 - 8.3 g/dL 11/03/2023 6:37 PM EDT LABORATORY [facility] Blood Venous blood specimen / Unknown Venipuncture / Unknown 11/03/2023 6:10 PM EDT 11/03/2023 6:12 PM EDT Chandrika SALMERON LAB BLOOD OR DERABLES Performing Organization Address City/[facility]/ZIP Co de Phone Number LABORATORY [address] [address] * MAGNESIUM (11/03/2023 6:10 PM EDT) Magnesium 2.0 1.5 - 2.6 mg/dL 11/03/2023 6:37 PM EDT LABORATORY GL Blood Venous blood specimen / Unknown Venipuncture / Unknown 11/03/2023 6:10 PM EDT 11/03/2023 6:12 PM EDT Chandrika SALMERON LAB BLOOD OR DERABLES LABORATORY [address] [address] * (ABNORMAL) PHOSPHORUS (11/03/2023 6:10 PM EDT) Phosphorus 5.3(H) 2.5 - 4.8 mg/dL 11/03/2023 6:37 PM EDT LABORATORY [facility] Blood Venous blood specimen / Unknown Venipuncture / Unknown 11/03/2023 6:10 PM EDT 11/03/2023 6:12 PM EDT Chandrika Camila SALMERON LAB BLOOD OR DERABLES LABORATORY [facility] [address] [place] [address] * (ABNORMAL) BASIC METABOLIC PANEL (11/03/2023 6:10 PM EDT) BUN 29(H) 6 - 20 mg/dL 11/03/2023 6:37 PM EDT LABORATORY [facility] Creatinine 1.4(H) 0.5 - 1.0 mg/dL 11/03/2023 6:37 PM EDT LABORATORY [facility] Estimated Glomerular Filtration Rate 45(L) >=60 mL/min 11/03/2023 6:37 PM EDT LABORATORY [facility] Comment:eGFR is calculated b ased on the CKD-EPI 2020 equation Sodium 138 135 - 146 mmol/L 11/03/2023 6:37 PM EDT LABORATORY [facility] Potassium 5.0 3.5 - 5.1 mmol/L 11/03/2023 6:37 PM EDT LABORATORY [facility] Chloride 116(H) 98 - 107 mmol/L 11/03/2023 6:37 PM EDT LAB[facility]ATORY [facility] CO2 11(L) 22 - 32 mmol/L 11/03/2023 6:37 PM EDT LABORATORY [facility] Anion Gap 11 7 - 15 mmol/L 11/03/2023 6:37 PM EDT LABORATORY [facility] Glucose 85 70 - 120 mg/dL 11/03/2023 6:37 PM EDT LABORATORY [facility] Calcium 8.5 8.4 - 10.2 mg/dL 11/03/2023 6:37 PM EDT LAB[facility]ATORY [facility] Blood Venous blood specimen / Unknown Venipuncture / Unknown 11/03/2023 6:10 PM EDT 11/03/2023 6:12 PM EDT Chandrika SALMERON LAB BLOOD OR DERABLES LABORATORY [facility] [address] [place] [address] * (ABNORMAL) CBC (11/03/2023 6:10 PM EDT) Pathologist [facility] [place] WBC 8.19 4.00 - 10.80 K/uL 11/03/2023 6:17 PM EDT LABORATORY [facility] RBC 3.80 3.85 - 5.15 M/uL 11/03/2023 6:17 PM EDT LABORATORY [facility] HGB 11.4(L) 12.0 - 15.3 g/dL 11/03/2023 6:17 PM EDT LABORATORY [facility] HCT 38.5 36.0 - 45.2 % 11/03/2023 6:17 PM EDT LABORATORY [facility] MCV 101.3 81.5 - 97.5 fL 11/03/2023 6:17 PM EDT LABORATORY [facility] MCH 30.0 27.0 - 34.0 pg 11/03/2023 6:17 PM EDT LABORATORY GL MCHC 29.6 32.0 - 36.0 g/dL 11/03/2023 6:17 PM EDT LABORATORY GL RDW 17.7 11.5 - 15.5 % 11/03/2023 6:17 PM EDT LABORATORY [facility] PLT 159 140 - 400 K/uL 11/03/2023 6:17 PM EDT LABORATORY GL MPV 12.1 6.6 - 11.1 fL 11/03/2023 6:17 PM EDT LABORATORY GL nRBCs 0 <=0 /100 WBCs 11/03/2023 6:17 PM EDT LABORATORY GL Blood Venous blood specimen / Unknown Venipuncture / Unknown 11/03/2023 6:10 PM EDT 11/03/2023 6:12 PM EDT Chandrika SALMERON LAB BLOOD OR DERABLES LABORATORY GL [address] [place] [address] documented in this encounter Visit Diagnoses Diagnosis Failure to thrive in adult- Primary Adult failure to thrive Failure to thrive in adult Adult failure to thrive Chest pain Chest pain, unspecified 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 Severe protein-energy malnutrition (HCC) Other severe protein-calorie malnutrition Status post bariatric surgery Bariatric surgery status MDD (major depressive disorder), recurrent severe, without psychosis (HCC) Major depressive disorder, recurrent episode, severe, without mention of psychotic behavior Bipolar disorder (HCC) Bipolar disorder, unspecified Tobacco abuse Tobacco use disorder documented in this encounter Administered Medications Inactive Administered Medications - up to 3 most recent administrations Medication Order MAR Action Action Date Dose Rate Site Acetaminophen (Tylenol) tab 650 mg 650 mg, Oral, Q6H PRN Pain, Mild, Fever >38C(100.5F), Starting on Mon11/03/23 at 1741, Until Mon11/07/23 at 1543, Maximum of 4 grams (4000 mg) per day. Given 11/06/2023 12:37 PM EDT 650 mg Adult TPN central IV 1,500 mL, Intravenous, [id number], Starting on Mon11/03/23 at 2100, Until Mon11/04/23 at 2058, For 24 hours, Infuse using a 1.2 micron in-line filter Rate Verify 11/04/2023 5:05 PM EDT 63 mL/hr Restarted 11/04/2023 9:49 AM EDT 63 mL/hr New Bag 11/03/2023 9:57 PM EDT 63 mL/hr Adult TPN central IV 1,000 mL, Intravenous, [id number], Starting on Mon11/04/23 at 2100, Until Mon11/05/23 at 2058, For 24 hours, Infuse using a 1.2 micron in-line filter Restarted 11/05/2023 11:05 AM EDT 63 mL/hr New Bag 11/04/2023 8:58 PM EDT 63 mL/hr Adult TPN central IV 1,000 mL, Intravenous, [id number], Starting on Mon11/05/23 at 2100, Until Mon11/06/23 at 2058, For 24 hours, Infuse using a 1.2 micron in-line filter Restarted 11/06/2023 8:18 AM EDT 83 mL/hr Restarted 11/06/2023 8:10 AM EDT 83 mL/hr Rate Verify 11/06/2023 5:00 AM EDT 83 mL/hr Adult TPN central IV 1,000 mL, Intravenous, [id number], Starting on Mon11/06/23 at 2100, Until Mon11/07/23 at 0859, For 12 hours, Infuse using a 1.2 micron in-line filter Rate Verify 11/07/2023 5:47 AM EDT 83 mL/hr New Bag 11/06/2023 9:58 PM EDT 83 mL/hr Bisacodyl (Dulcolax) supp 10 mg 10 mg, Rectal, DAILY PRN Constipation, Starting on Mon11/06/23 at 1741, Until Mon11/07/23 at 1543, Administer if no bowel movement within past 72 hours and patient unable to take oral medications. Bisacodyl (Dulcolax) tab 5 mg 5 mg, Oral, DAILY PRN Constipation, Starting on Mon11/06/23 at 1741, Until Mon11/07/23 at 1543, Administer in addition to polyethylene glycol and senna-docusate if no bowel movement in past 72 hours. busPIRone (Buspar) tab 5 mg 5 mg, Oral, TID(AM/NOON/HS), First dose (after last modification) on Mon11/03/23 at 2230, Until Discontinued Given 11/07/2023 6:15 AM EDT 5 mg Given 11/06/2023 9:35 PM EDT 5 mg Given 11/06/2023 12:37 PM EDT 5 mg [id number]-[id number] 50-325-40 mg per tab (Fioricet) 1 Tablet 1 Tablet, Oral, Q6H PRN Headache, Starting on Mon11/04/23 at 0936, Until Mon11/07/23 at 1543, Maximum of 4 grams (4000 mg) oc acetaminophen per day Given 11/06/2023 11:02 PM EDT 1 Tablet Calcitriol (Rocaltrol) cap 0.25 mcg 0.25 mcg, Oral, MWF, First dose on Mon11/06/23 at 0900, Until Discontinued Given 11/06/2023 9:49 AM EDT 0.25 mcg DULoxetine (Cymbalta) DR cap 120 mg 120 mg, Oral, Daily(AM), First dose on Mon11/04/23 at 0900, Until Discontinued Given 11/07/2023 9:30 AM EDT 120 mg Given 11/06/2023 9:49 AM EDT 120 mg Given 11/05/2023 9:48 AM EDT 120 mg Ergocalciferol (Vitamin D2(Drisdol)) cap 50,000 Units 50,000 Units, Oral, MWF, First dose on Mon11/06/23 at 0900, Until Discontinued, 1.25 mg = 50,000 units Given 11/06/2023 9:49 AM EDT 50,000 Units Ferrous Sulfate (Feosol) tab 325 mg 325 mg, Oral, DAILY NOON, First dose on Mon11/04/23 at 1200, Until Discontinued, This med should NOT be Crushed or Chewed Given 11/06/2023 12:37 PM EDT 325 mg Given 11/05/2023 12:19 PM EDT 325 mg Given 11/04/2023 12:26 PM EDT 325 mg hEParin inj 5,000 Units 5,000 Units, Subcutaneous, Q12H, First dose on Mon11/04/23 at 0900, Until Discontinued Given 11/06/2023 9:34 PM EDT 5,000 Units Abdomen Right Lower Given 11/06/2023 9:49 AM EDT 5,000 Units Abdomen Left Lower Given 11/05/2023 9:07 PM EDT 5,000 Units H ip Right Lidocaine (Aspercreme) 4 % patch 1 Patch 1 Patch, Transdermal, Q24H, First dose on Mon11/03/23 at 1815, Until Discontinued, Apply patch for 12 hours then remove for 12 hours! Remove any Lidocaine patches the patient may currently be wearing prior to applying the new patch Patch Applied 11/06/2023 6:21 PM EDT 1 Patch Back Middle Patch Applied 11/05/2023 6:27 PM EDT 1 Patch Back Middle Patch Applied 11/04/2023 6:23 PM EDT 1 Patch Back Middle melatonin tab 3 mg 3 mg, Oral, HS PRN Insomnia, Starting on Mon11/03/23 at 1741, Until Mon11/07/23 at 1543 mirtazapine ODT (Remeron Soltab) tab 45 mg 45 mg, Oral, HS, First dose on Mon11/03/23 at 2200, Until Discontinued Given 11/06/2023 9:35 PM EDT 45 mg Given 11/05/2023 9:03 PM EDT 45 mg Given 11/04/2023 8:59 PM EDT 45 mg Nicotine (Nicoderm CQ) 14 MG/24HR patch 1 Patch 1 Patch, Transdermal, Daily(AM), First dose on 11/04/23 at 0900, Until Discontinued, Place on clean, hairless area. Remove for patient showers. Change every 24 hours WASTE INFO: Return packaging and waste medication in zip lock bag to pharmacy - [facility] container. Patch Applied 11/06/2023 8:07 PM EDT 1 Patch Arm Left Upper Patch Applied 11/05/2023 7:36 PM EDT 1 Patch Arm Right Upper Patch Applied 11/04/2023 7:29 PM EDT 1 Patch Arm Left Upper nystatin cream Topical, BID (.AM/PM), First dose on Mon11/03/23 at 2100, Until Discontinued, Apply to groin Given 11/07/2023 9:32 AM EDT Given 11/03/2023 9:12 PM EDT OLANZapine ODT (zyPREXA zyDIS) tab 5 mg 5 mg, On Tongue, Daily(AM), First dose on Mon11/04/23 at 0900, Until Discontinued, Orally disintegrating tabs, place on top of tongue Given 11/07/2023 9:30 AM EDT 5 mg Given 11/06/2023 9:49 AM EDT 5 mg Given 11/05/2023 9:47 AM EDT 5 mg omeprazole (PriLOSEC) cap 20 mg 20 mg, Oral, Daily(AM), First dose on Mon11/04/23 at 0900, Until Discontinued, This med should NOT be Crushed or Chewed Given 11/07/2023 9:30 AM EDT 20 mg Given 11/06/2023 9:49 AM EDT 20 mg Given 11/05/2023 9:47 AM EDT 20 mg ondansetron (Zofran) inj 4 mg 4 mg, IV Push, Q6H PRN Nausea, Starting on Mon11/03/23 at 1741, Until Mon11/07/23 at 1543 phenol (chlorASEPTIC) spray 3 [place] 3 [place], Oral, Q4H PRN Sore throat, Starting on Mon11/06/23 at 0827, Until Mon11/07/23 at 1543, See nursing care plan Given 11/06/2023 10:27 AM EDT 3 Sp rays Polyethylene Glycol 3350 (Miralax) oral powder 17 g 17 g (1 Packet), Oral, DAILY PRN Constipation, Starting on Mon11/03/23 at 1741, Until Mon11/07/23 at 1543, Administer if no bowel movement within past 24 hours. Pregabalin (Lyrica) cap 25 mg 25 mg, Oral, BID (.AM/PM), First dose (after last modification) on Mon11/03/23 at 2230, Until Discontinued Given 11/07/2023 9:32 AM EDT 25 mg Given 11/06/2023 9:35 PM EDT 25 mg Given 11/06/2023 9:49 AM EDT 25 mg QUEtiapine (SEROquel) tab 50 mg 50 mg, Oral, HS, First dose on Mon11/04/23 at 2200, Until Discontinued Given 11/06/2023 10:59 PM EDT 50 mg Given 11/05/2023 10:21 PM EDT 50 mg senna-docusate (Senokot-S) 1 Tablet 1 Tablet, Oral, BID PRN Constipation, Starting on Mon11/05/23 at 1741, Until Mon11/07/23 at 1543, Administer in addition to polyethylene glycol if no bowel movement within past 48 hours. sodium bicarbonate tab 1,300 mg 1,300 mg, Oral, BID (.AM/PM), First dose on Mon11/03/23 at 2100, Until Discontinued Given 11/07/2023 9:30 AM EDT 1,30 0 mg Given 11/06/2023 9:35 PM EDT 1,300 mg Given 11/06/2023 9:49 AM EDT 1,300 mg sodium chloride 0.9 % flush/inj 3 mL 3 mL, IV Push, PRN Other, Line Patency, Starting on Mon11/03/23 at 1740, Until Mon11/07/23 at 1543, Do not flush if lock, PICC, or central line not in place, IV infusing or unable to flush SUMAtriptan (Imitrex) tab 50 mg 50 mg, Oral, ONCE, On Mon11/06/23 at 1445, For 1 dose, Max 200 mg per Day Given 11/06/2023 2:45 PM EDT 50 mg traMADol (Ultram) tab 50 mg 50 mg, Oral, DAILY PRN Pain, Severe, Starting on Mon11/03/23 at 1732, Until 11/04/23 at 0938 Given 11/04/2023 1:28 AM EDT 50 mg Given 11/03/2023 6:45 PM EDT 50 mg traMADol (Ultram) tab 50 mg 50 mg, Oral, Q8H PRN Pain, Severe, Starting on Mon11/04/23 at 0945, Until Mon11/07/23 at 1543 Given 11/06/2023 8: 07 PM EDT 50 mg Given 11/06/2023 10:27 AM EDT 50 mg Given 11/05/2023 9:04 PM EDT 50 mg Vitamin C (Ascorbic Acid) tab 250 mg 250 mg, Oral, DAILY NOON, First dose on Mon11/04/23 at 1200, Until Discontinued Given 11/07/2023 9:30 AM EDT 250 mg Given 11/06/2023 12:37 PM EDT 250 mg Given 11/05/2023 12:19 PM EDT 250 mg Vitamin E (Aquasol E) cap 400 Units 400 Units, Oral, Daily(AM), First dose on Mon11/04/23 at 0900, Until Discontinued Given 11/07/2023 9:30 AM EDT 400 Units Given 11/06/2023 9:49 AM EDT 400 Units Given 11/05/2023 9:47 AM EDT 400 Units zinc sulfate cap 220 mg 220 mg, Oral, Daily(AM), First dose on Mon11/04/23 at 0900, Until Discontinued, 220 mg zinc sulfate = 50 mg elemental zinc Given 11/07/2023 9:30 AM EDT 220 mg Given 11/06/2023 9:49 AM EDT 220 mg Given 11/05/2023 9:47 AM EDT 220 mg documented in this encounter Active and Recently Administered Medications Times are shown in EDT. Scheduled Medication Order 11/05/2023 11/06/2023 11/07/2023 busPIRone (Buspar) tab 5 mg 5 mg, Oral, TID(AM/NOON/HS), First dose (after last modification) on Mon11/03/23 at 2230, Until Discontinued 0644 (Given - Provider: Adry Patel RN)1219 (Given - Provider: Radha Mendieta RN)2103 (Given - Provider: Adry Patel RN) 0610 (Given - Provider: Adry Patel RN)1237 (Given - Provider: Radha Mendieta RN)2134 (Given - Provider: Farida Townsend RN) 0615 (Given - Provider: Lisa Ba RN) Calcitriol (Rocaltrol) cap 0.25 mcg 0.25 mcg, Oral, MWF, First dose on Mon11/06/23 at 0900, Until Discontinued 0949 (Given - Provider: Radha Mendieta RN) DULoxetine (Cymbalta) DR cap 120 mg 120 mg, Oral, Daily(AM), First dose on 11/04/23 at 0900, Until Discontinued 0948 (Given - Provider: Radha Mendieta RN) 09 (Given - Provider: Radha Mendieta RN) 0930 (Given - Provider: Vangie Sullivan, MELI) Ergocalciferol (Vitamin D2(Drisdol)) cap 50,000 Units 50,000 Units, Oral, MWF, First dose on Mon11/06/23 at 0900, Until Discontinued, 1.25 mg = 50,000 units 0949 (Given - Provider: Radha Mendieta RN) Ferrous Sulfate (Feosol) tab 325 mg 325 mg, Oral, DAILY NOON, First dose on Mon11/04/23 at 1200, Until Discontinued, This med should NOT be Crushed or Chewed 1219 (Given - Provider: Radha Mendieta RN) 1237 (Given - Provider: Radha Mendieta RN) hEParin inj 5,000 Units 5,000 Units, Subcutaneous, Q12H, First dose on Mon11/04/23 at 0900, Until Discontinued 0948 (Given - Provider: Radha Mendieta RN)2106 (Given - Provider: Adry Patel RN) 49 (Given - Provider: Radha Mendieta RN)2133 (Given - Provider: Farida Townsend RN) 0900 (Not Given - Provider: Vangie Sullivan, MELI - Reason: Refused-Notify Provider) Lidocaine (Aspercreme) 4 % patch 1 Patch 1 Patch, Transdermal, Q24H, First dose on Mon11/03/23 at 1815, Until Discontinued, Apply patch for 12 hours then remove for 12 hours! Remove any Lidocaine patches the patient may currently be wearing prior to applying the new patch 622 (Patch Removed - Provider: Adry Patel RN)1826 (Patch Applied - Provider: Radha Mendieta RN) 06 (Patch Removed - Provider: Radha Mendieta RN)1820 (Patch Applied - Provider: Radha Mendieta RN) 620 (Patch Removed - Provider: Lisa Ba RN) mirtazapine ODT (Remeron Soltab) tab 45 mg 45 mg, Oral, HS, First dose on Mon11/03/23 at 2200, Until Discontinued 2102 (Given - Provider: Adry Patel RN) 2134 (Given - Provider: Farida Townsend RN) Nicotine (Nicoderm CQ) 14 MG/24HR patch 1 Patch 1 Patch, Transdermal, Daily(AM), First dose on Mon11/04/23 at 0900, Until Discontinued, Place on clean, hairless area. Remove for patient showers. Change every 24 hours WASTE INFO: Return packaging and waste medication in zip lock bag to pharmacy - [facility] container. 1928 (Patch Removed - Provider: Adry Patel RN)1935 (Patch Applied - Provider: Adry Patel RN) 1935 (Patch Removed - Provider: Lisa Ba RN)2006 (Patch Applied - Provider: Lisa Ba RN) 1142 (Due: Patch Removed - Provider: Discharge, Physician - Comment: Time automatically adjusted from order being discontinued) nystatin cream Topical, BID (.AM/PM), First dose on Mon11/03/23 at 2100, Until Discontinued, Apply to groin 0949 (Not Given - Provider: Radha Mendieta RN - Reason: Refused-Notify Provider)2099 (Not Given - Provider: Adry Patel RN - Reason: Refused-Notify Provider) 0949 (Not Given - Provider: Radha Mendieta RN - Reason: Refused-Notify Provider)2100 (Not Given - Provider: Farida Townsend RN - Reason: Refused-Notify Provider) 0932 (Given - Provider: Vangie Sullivan RN) OLANZapine ODT (zyPREXA zyDIS) tab 5 mg 5 mg, On Tongue, Daily(AM), First dose on 11/04/23 at 0900, Until Discontinued, Orally disintegrating tabs, place on top of tongue 0947 (Given - Provider: Radha Mendieta RN) 0949 (Given - Provider: Radha Mendieta RN) 0930 (Given - Provider: Vangie Sullivan, MELI) omeprazole (PriLOSEC) cap 20 mg 20 mg, Oral, Daily(AM), First dose on 11/04/23 at 0900, Until Discontinued, This med should NOT be Crushed or Chewed 0947 (Given - Provider: Radha Mendieta RN) 0949 (Given - Provider: Radha Mendieta RN) 0930 (Given - Provider: Vangie Sullivan, MELI) Pregabalin (Lyrica) cap 25 mg 25 mg, Oral, BID (.AM/PM), First dose (after last modification) on Mon11/03/23 at 2230, Until Discontinued 0948 (Given - Provider: Radha Mendieta RN)2102 (Given - Provider: Adry Patel RN) 948 (Given - Provider: Radha Mendieta RN)2134 (Given - Provider: Farida Townsend RN) 0932 (Given - Provider: Vangie Sullivan, MELI) QUEtiapine (SEROquel) tab 50 mg 50 mg, Oral, HS, First dose on Mon11/04/23 at 2200, Until Discontinued 2220 (Given - Provider: Adry Patel RN) 2258 (Given - Provider: Lisa Ba RN) sodium bicarbonate tab 1,300 mg 1,300 mg, Oral, BID (.AM/PM), First dose on Mon11/03/23 at 2100, Until Discontinued 0948 (Given - Provider: Radha Mendieta RN)2102 (Given - Provider: Adry Patel RN) 0949 (Given - Provider: Radha Mendieta RN)2134 (Given - Provider: Farida Townsend RN) 0930 (Given - Provider: Vangie Sullivan RN) SUMAtriptan (Imitrex) tab 50 mg (COMPLETED) 50 mg, Oral, ONCE, On 11/06/23 at 1445, For 1 dose, Max 200 mg per Day 1445 (Given - Provider: Radha Mendieta RN) Vitamin C (Ascorbic Acid) tab 250 mg 250 mg, Oral, DAILY NOON, First dose on 11/04/23 at 1200, Until Discontinued 1219 (Given - Provider: Radha Mendieta RN) 1237 (Given - Provider: Radha Mendieta RN) 0930 (Given - Provider: Vangie Sullivan RN - Comment: ptgoing home today) Vitamin E (Aquasol E) cap 400 Units 400 Units, Oral, Daily(AM), First dose on 11/04/23 at 0900, Until Discontinued 0947 (Given - Provider: Radha Mendieta RN) 0949 (Given - Provider: Radha Mendieta RN) 0930 (Given - Provider: Vangie Sullivan RN) zinc sulfate cap 220 mg 220 mg, Oral, Daily(AM), First dose on 11/04/23 at 0900, Until Discontinued, 220 mg zinc sulfate = 50 mg elemental zinc 0947 (Given - Provider: Radha Mendieta RN) 0949 (Given - Provider: Radha Mendieta RN) 0930 (Given - Provider: Vangie Sullivan RN) Continuous Medication Order 11/05/2023 11/06/2023 11/07/2023 Adult TPN central IV () 1,000 mL, Intravenous, [id number], Starting on 11/04/23 at 2100, Until 11/05/23 at 2058, For 24 hours, Infuse using a 1.2 micron in-line filter 1100 (Paused - Provider: Radha Mendieta RN)1105 (Restarted - Provider: Radha Mendieta RN)1216 (Stopped - Provider: Radha Mendieta RN) Adult TPN central IV () 1,000 mL, Intravenous, [id number], Starting on 11/05/23 at 2100, Until 11/06/23 at 205, For 24 hours, Infuse using a 1.2 micron in-line filter 2120 (New Bag - Provider: Adry Patel RN) 0008 (Rate Verify - Provider: Adry Patel RN)0500 (Rate Verify - Provider: Adry Patel RN)0754 (Paused - Provider: Radha Mendieta RN)0810 (Restarted - Provider: Radha Mendieta RN)0811 (Paused - Provider: Radha Mendieta, RN)0818 (Restarted - Provider: Radha Mendieta RN)0902 (Stopped - Provider: Radha Mendieta RN) Adult TPN central IV 1,000 mL, Intravenous, [id number], Starting on Mon11/06/23 at 2100, Until Mon11/07/23 at 0859, For 12 hours, Infuse using a 1.2 micron in-line filter 2158 (New Bag - Provider: Farida Townsend RN) 0547 (Rate Verify - Provider: Lisa Ba RN) PRN Medication Order 11/05/2023 11/06/2023 11/07/2023 Acetaminophen (Tylenol) tab 650 mg 650 mg, Oral, Q6H PRN Pain, Mild, Fever >38C(100.5F), Starting on Mon11/03/23 at 1741, Until Mon11/07/23 at 1543, Maximum of 4 grams (4000 mg) per day. 1237 (Given - Provider: Radha Mendieta RN) ALPRAZolam (xaNAX) tab 0.25 mg 0.25 mg, Oral, HS PRN Sleep, Starting on Mon11/03/23 at 1732, Until Mon11/07/23 at 1543 Bisacodyl (Dulcolax) supp 10 mg(Linked Group 1) 10 mg, Rectal, DAILY PRN Constipation, Starting on Mon11/06/23 at 1741, Until Mon11/07/23 at 1543, Administer if no bowel movement within past 72 hours and patient unable to take oral medications. Bisacodyl (Dulcolax) tab 5 mg(Linked Group 1) 5 mg, Oral, DAILY PRN Constipation, Starting on Mon11/06/23 at 1741, Until Mon11/07/23 at 1543, Administer in addition to polyethylene glycol and senna-docusate if no bowel movement in past 72 hours. mwwfsesbpn-ochlzylauqyyc-uz ffeine 50-325-40 mg per tab (Fioricet) 1 Tablet 1 Tablet, Oral, Q6H PRN Headache, Starting on 11/04/23 at 0936, Until Mon11/07/23 at 1543, Maximum of 4 grams (4000 mg) oc acetaminophen per day 2302 (Given - Provider: Lisa Ba RN) dicyclomine (Bentyl) cap 20 mg 20 mg, Oral, TID PRN Other, abdominal pain, Starting on Mon11/03/23 at 1735, Until Mon11/07/23 at 1543 melatonin tab 3 mg 3 mg, Oral, HS PRN Insomnia, Starting on Mon11/03/23 at 1741, Until Mon11/07/23 at 1543 ondansetron (Zofran) inj 4 mg 4 mg, IV Push, Q6H PRN Nausea, Starting on Mon11/03/23 at 1741, Until Mon11/07/23 at 1543 phenol (chlorASEPTIC) spray 3 [place] 3 [place], Oral, Q4H PRN Sore throat, Starting on 11/06/23 at 0827, Until Mon11/07/23 at 1543, See nursing care plan 1027 (Given - Provider: Radha Mendieta RN) Polyethylene Glycol 3350 (Miralax) oral powder 17 g(Linked Group 1) 17 g (1 Packet), Oral, DAILY PRN Constipation, Starting on Mon11/03/23 at 1741, Until Mon11/07/23 at 1543, Administer if no bowel movement within past 24 hours. senna-docusate (Senokot-S) 1 Tablet(Linked Group 1) 1 Tablet, Oral, BID PRN Constipation, Starting on Mon11/05/23 at 1741, Until Mon11/07/23 at 1543, Administer in addition to polyethylene glycol if no bowel movement within past 48 hours. sodium chloride 0.9 % flush/inj 3 mL 3 mL, IV Push, PRN Other, Line Patency, Starting on Mon11/03/23 at 1740, Until Mon11/07/23 at 1543, Do not flush if lock, PICC, or central line not in place, IV infusing or unable to flush traMADol (Ultram) tab 50 mg 50 mg, Oral, Q8H PRN Pain, Severe, Starting on 11/04/23 at 0945, Until Mon11/07/23 at 1543 0944 (Given - Provider: Radha Mendieta, RN)2103 (Given - Provider: Adry Patel RN) 102 (Given - Provider: Radha Mendieta, RN)2006 (Given - Provider: Lisa Ba RN) Linked Groups Order Group 1: Polyethylene Glycol 3350 (Miralax) oral powder 17 gJump to med 17 g (1 Packet), Oral, DAILY PRN Constipation, Starting on Mon11/03/23 at 1741, Until Mon11/07/23 at 1543, Administer if no bowel movement within past 24 hours. And senna-docusate (Senokot-S) 1 TabletJump to med 1 Tablet, Oral, BID PRN Constipation, Starting on Mon11/05/23 at 1741, Until Mon11/07/23 at 1543, Administer in addition to polyethylene glycol if no bowel movement within past 48 hours. And Bisacodyl (Dulcolax) tab 5 mgJump to med 5 mg, Oral, DAILY PRN Constipation, Starting on 11/06/23 at 1741, Until Mon11/07/23 at 1543, Administer in addition to polyethylene glycol and senna- docusate if no bowel movement in past 72 hours. And Bisacodyl (Dulcolax) supp 10 mgJump to med 10 mg, Rectal, DAILY PRN Constipation, Starting on Mon11/06/23 at 1741, Until Mon11/07/23 at 1543, Administer if no bowel movement within past 72 hours and patient unable to take oral medications. 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
--- OUTSIDE RECORDS SUMMARY | 2023-12-07 18:04 | External Medical Summary ---
Author Name Unknown Address Unknown Organization [facility] - [address] [place] [address] Laboratory Report Ordering Provider Test Date Status JENNIFER KURTZ 11/07/2023 04:25:00 Final Observation Date Value Abnormality Reference (Units ) Status Phosphate 11/07/2023 04:25:00 3.6 2.5-4.8 (m g/dL) Final Performing Location [facility] [address] [place] [address]
--- OUTSIDE RECORDS SUMMARY | 2023-12-07 18:04 | External Medical Summary ---
Author Name Unknown Address Unknown Organization [facility] - [address] [place] [address] Laboratory Report Ordering Provider Test Date Status DIANDRASTEPHANIE REDDYHEMANTH 11/07/2023 04:25:00 Final Observation Date Value Abnormality Reference (Units ) Status Calcium.ionized [Moles/volume] in Serum or Plasma by Ion-selective membrane electrode (ISE) 11/07/2023 04:25:00 1.27 1.13-1.32 (mmol/L) Final This test was developed and its performance characteristics dtermined by [employer]. It has not been cleared or approved by the US Food and Drug Administration Performing Location [facility] - [address] [place] [address]
--- OUTSIDE RECORDS SUMMARY | 2023-12-07 18:04 | External Medical Summary | Summary of Care ---
Author Name Unknown Organization [facility] Address [address] [place] [address] Phone [phone] Care Team Providers Care Line Service Attendant Name Role Phone Evelyn Andrews MD Primary Care Prov ider Encounter Details Date Type Department Care Team (Late st Contact Info) Description 11/08/2023 Population Health External Data Unspecified Department Allergies Active Allergy Reactions Criticality Noted Date Comments Amoxicillin Edema airway High 01/22/2003 Oxybutynin 03/25/2023 Mouth ulcers Sulfa Antibiotics Edema airway High 08/15/2006 documented as of this encounter (statuses as of 11/08/2023) Medications Medication Sig Dispensed Refills Start Date [...] FOR MIGRAINE. 10 Tablet 5 09/18/2023 Active Npgfqrxhup-CHRP-Mvxa eine 50-325-40 MG Oral Tablet (Fioricet)Indication s:Migraine [...] not taking.Reported on 11/03/2023 Ergocalciferol 1.25 MG (74127 UT) Oral Capsule (Vitamin D2(Drisdol)) Take 1 [...] Severe. 30 Tablet 0 10/24/2023 Active Nystatin 762120 UNIT/GM External Cream APPLY TO AFFECTED AREA [...] as of this encounter (statuses as of 11/08/2023) Active Problems Problem Noted Date Diagnosed Date [...] as of this encounter (statuses as of 11/08/2023) Resolved Problems Problem Noted Date Diagnosed Date Resolved Date Old CA (myocardial infarction) 03/01/2023 03/01/2023 Atherosclerosis of [place] co ronary artery without angina pectoris 02/08/2022 [...] malnutrition 09/28/2018 09/23/2021 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/2021 SURVEY RESEARCH PROFESSOR 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 02/06/2017 05/02/2018 SURVEY RESEARCH PROFESSOR 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 02/06/2017 07/09/2019 Iron deficiency anemia 06/28/201109/20 Overview: ICD-10 update of inactive term Iron deficiency anemia 06/28/201109/20 Overview: ICD-10 update of inactive term Iron deficiency anemia pat paulino to inadequate dietary iron intake 09/26/2008 3 Secondary hyperparathyroidism, non-renal 03/27/2007 10/24/2023 Infected postoperative seroma 06/02/2003 09/20/2012 PANNICULITIS, UNSP SITE 05/14/2003 09/0 11/2022 documented as of this encounter (statuses as of 11/08/2023) Immunizations Name Administration Dates Next Due COVID-19 mRNA, LNP-s, No Pre serve, 2-Dose Series (UserZoom) 02/16/2021,11/25/2020,11/01/2020 COVID-19, MRNA-LNP, 23-24, P F, 30 MCG/0.3 mL, 12 YRS AND ABOVE, IM (PFIZER-Comirnaty) 04/10/2023 Covid-19, Mrna, Lnp-s, Pf, B ivalent, 30 Mcg, IM, 12 yrs and above (Pfizer) 04/12/2022 Pneumococcal Conjugate Vacci ne, 20-valent ([id number]) 12/10/2021 Pneumococcal Polysaccharide PPV23 (Pneumovax) 07/21/2009 Seasonal [...] Telemedicine Psychiatry Vanessa Alex [address] [place] [id number] Alexis Serna MD [address] [place] [address] 12/04/2023 3:45 PM EDT Office Visit Urology, [facility] [address] [place] [address] Christopher Almonte MD [address] [address] 04/29/2024 8:40 AM EST Office Visit Neurology [facility] [address] [facility] [address] [place] [address] Aris Mohr MD [address] [facility] [place] [address] 09/16/2024 11:20 AM EDT Office Visit Neurology [facility] [address] [facility] [address] [place] [id number] Jodee Austin MD [address] [place] [address] Health Maintenance Due Date Last [...] 024, 08/23/2022, 09/20/2021 CKD HGB USE SMARTSET 98100 11/06/202411/06, 11/06/2023, 11/04/2023, Additional history exists CKD PHOS USE SMARTSET 21909 11/06/202410/24, 11/06/2023, 11/05/2023, Additional history exists DTaP,Tdap,and [...] this encounter Medical Devices Implanted Type Area Gun Stocker Device Identifier Shelf Expiration Date Model / Serial / Lot Stent [employer] 20mm - [id number] Implanted:Qty: 1 on 01/04/2021 by Leyda Garcia MD at OR [facility] [place] N/A: Stomach [employer] : ENDOSCOPY 11/20/2021 [id number] / / [id number] documented as of this encounter Advance Directives Documents on File Type Date Recorded Patient Home Economics Extension Worker Expl anation POLST 01/03/2022 [place] OR [facility] FOR LIFE-SUSTAINING TREATMENT Latest Code [...] Other - (no specific identity) Health Care Home Economics Extension Worker (appointed verbally by patient or by statute hierarchy) Rowdy Mykel Sibling Health Care Home Economics Extension Worker (appointed verbally by patient or by statute hierarchy) Care Teams Line Service Attendant Relationship Specialty Start Date End Date Evelyn Andrews MD [address] [place] [address] [place] [phone] PCP - General Family Medicine 05/04/18 documented as of this encounter
--- OUTSIDE RECORDS SUMMARY | 2023-12-07 18:04 | External Medical Summary ---
Author Name Unknown Address Unknown Organization [facility] - [address] [place] [address] Laboratory Report Ordering Provider Test Date Status JENNIFER KURTZ 11/07/2023 04:25:00 Final Observation Date Value Abnormality Reference (Units ) Status Magnesium 11/07/2023 04:25:00 2.0 1.5-2.6 (m g/dL) Final Performing Location [facility] - [address] [place] [address]
--- OUTSIDE RECORDS SUMMARY | 2023-12-07 18:04 | External Medical Summary ---
Author Name Unknown Address Unknown Organization K1F:LAB[facility]ATORY [facility] - [address] [place] [address] Laboratory Report Ordering Provider Test Date Status JENNIFER KURTZ 11/07/2023 04:25:00 Final Observation Date Value Abnormality Reference (Units ) Status BUN 11/07/2023 04:25:00 48 Above high normal 6-20 (mg/dL) Final Creatinine 11/07/2023 04:25:00 1.1 Above high normal 0.5-1.0 (mg/dL) Final Glomerular filtration rate/1.73 sq M.predicted [Volume Rate/Area] in Serum, Plasma or Blood by Creatinine-based formula (CKD-EPI) 11/07/2023 04:25:00 58 Below low normal >=60 (mL/min) Final eGFR is calculated based on the CKD-EPI 2020 equation Sodium 11/07/2023 04:25:00 141 135-146 (m mol/L) Final Potassium 11/07/2023 04:25:00 4.1 3.5-5.1 (m mol/L) Final Cl 11/07/2023 04:25:00 110 Above high normal 98 -107 (mmol/L) Final CO2 11/07/2023 04:25:00 18 Below low normal 22- 32 (mmol/L) Final Anion gap 11/07/2023 04:25:00 13 7-15 (mmol /L) Final Glucose 11/07/2023 04:25:00 116 70-120 (mg /dL) Final Calcium 11/07/2023 04:25:00 8.7 8.4-10.2 ( mg/dL) Final Performing Location [facility]ATORY [facility] - [address] [place] [address]
--- NOTE | 2023-12-07 18:13 | XRay Report ---
XR chest 1V portable HISTORY: 58 years-old Female SOB acute shortness of breath COMPARISON: Chest radiograph and CTA chest study 612 TECHNIQUE: AP view of the chest FINDINGS: Sigmoid thoracolumbar scoliosis. Left IJ catheter distal tip terminates in the SVC. Mild ca rdiomegaly. No pneumothorax or pleural effusion. Extensive intermixed interstitial and alveolar opaci ties, progressively worsened. Bones appear grossly intact. Surgical device within the stomach. Right upper quadrant surgical clips. IMPRESSION: Progressive worsening of the extensive intermixed interstitial and alveolar opacities wit hout pleural effusion. Pneumonia versus ARDS are differential considerations. ACT 112: Negative or not required by law. The above report was generated using voice recognition software. It may contain grammatical, syntax o r spelling errors. Electronically signed by: Maikel Lafleur M.D. 12/07/2023 6:11 PM
[2023-12-07] MEDS: CASPOFUNGIN 50 MG in SODIUM CHLORIDE 0.9% 250 ML IV SCH (18:19)
--- OUTSIDE RECORDS SUMMARY | 2023-12-07 18:26 | External Medical Summary ---
Author Name Unknown Address Unknown Organization K1F:LABORATORY [facility] - [address] [place] [address] Laboratory Report Ordering Provider Test Date Status MARIELOS SALAS 11/06/2023 03:36:00 Final Observation Date Value Abnormality Reference (Units ) Status WBC, Total 11/06/2023 03:36:00 6.87 4.00-10.80 (K/uL) Final RBC 11/06/2023 03:36:00 3.12 3.85-5.15 (M/uL) Final Hemoglobin 11/06/2023 03:36:00 9.5 Below low normal 12.0-15.3 (g/dL) Final HCT 11/06/2023 03:36:00 30.7 Below low normal 36.0-45.2 (%) Final MCV 11/06/2023 03:36:00 98.4 81.5-97.5 (fL) Final MCH 11/06/2023 03:36:00 30.4 27.0-34.0 (pg) Final MCHC 11/06/2023 03:36:00 30.9 32.0-36.0 (g/dL) Final RDW 11/06/2023 03:36:00 18.3 11.5-15.5 (%) Final Platelets 11/06/2023 03:36:00 146 140-400 (K/uL) Final MPV 11/06/2023 03:36:00 12.6 6.6-11.1 (fL) Final Nucleated erythrocytes/100 leukocytes [Ratio] in Blood by Automated count 11/06/2023 03:36:00 0 <=0 (/100 WBCs) Final Performing Location LABORATORY [facility] - [address] [place] [address]
--- OUTSIDE RECORDS SUMMARY | 2023-12-07 18:26 | External Medical Summary ---
Author Name Unknown Address Unknown Organization K1F:[facility]ATORY [facility] - [address] [place] [address] Laboratory Report Ordering Provider Test Date Status MARTY MOSER 11/06/2023 03:36:00 Final Observation Date Value Abnormality Reference (Units ) Status Magnesium 11/06/2023 03:36:00 2.3 1.5-2.6 (m g/dL) Final Performing Location LAB[facility]ATORY [facility] - [address] [place] [address]
--- OUTSIDE RECORDS SUMMARY | 2023-12-07 18:26 | External Medical Summary ---
Author Name Unknown Address Unknown Organization K1F:LABORATORY [facility] - [address] [place] [address] Laboratory Report Ordering Provider Test Date Status DIANDRABARRYSTEPHANIEHEMANTH 11/06/2023 03:36:00 Final Observation Date Value Abnormality Reference (Units ) Status Calcium.ionized [Moles/volume] in Serum or Plasma by Ion-selective membrane electrode (ISE) 11/06/2023 03:36:00 1.29 1.13-1.32 (mmol/L) Final This test was developed and its performance characteristics dtermined by [employer]. It has not been cleared or approved by the [place] Food and Drug Administration Performing Location LABORATORY [facility] - [address] [place] [address]
--- OUTSIDE RECORDS SUMMARY | 2023-12-07 18:27 | External Medical Summary ---
Author Name Unknown Address Unknown Organization K1F:LABORATORY [facility] - [address] [place] [address] Laboratory Report Ordering Provider Test Date Status MARTY MOSER 11/04/2023 02:34:00 Final Observation Date Value Abnormality Reference (Units ) Status RBC, Urine 11/04/2023 02:34:00 0-2 0-2 (/HPF) Final WBC, Urine 11/04/2023 02:34:00 0-2 0-2 (/HPF) Final Bacteria [#/area] in Urine sediment by Microscopy high power field 11/04/2023 02:34:00 0-25 0-25 (/HPF) Final Performing Location LABORATORY [facility] - [address] [place] [address]
--- OUTSIDE RECORDS SUMMARY | 2023-12-07 18:27 | External Medical Summary ---
Author Name Unknown Address Unknown Organization K1F:[facility] - [address] [place] [address] Laboratory Report Ordering Provider Test Date Status MARTY MOSER 11/05/2023 19:36:00 Final Observation Date Value Abnormality Reference (Units ) Status Magnesium 11/05/2023 19:36:00 2.1 1.5-2.6 (m g/dL) Final Performing Location LAB[facility]ATORY [facility] - [address] [place] [address]
--- OUTSIDE RECORDS SUMMARY | 2023-12-07 18:27 | External Medical Summary ---
Author Name Unknown Address Unknown Organization K1F:[facility] - [address] [place] [address] Laboratory Report Ordering Provider Test Date Status DAVID MOSERLAWANDA 11/05/2023 19:36:00 Final Observation Date Value Abnormality Reference (Units ) Status BUN 11/05/2023 19:36:00 47 Above high normal 6-20 (mg/dL) Final Creatinine 11/05/2023 19:36:00 1.3 Above high normal 0.5-1.0 (mg/dL) Final Glomerular filtration rate/1.73 sq M.predicted [Volume Rate/Area] in Serum, Plasma or Blood by Creatinine-based formula (CKD-EPI) 11/05/2023 19:36:00 49 Below low normal >=60 (mL/min) Final eGFR is calculated based on the CKD-EPI 2020 equation Sodium 11/05/2023 19:36:00 142 135-146 (m mol/L) Final Potassium 11/05/2023 19:36:00 4.1 3.5-5.1 (m mol/L) Final Cl 11/05/2023 19:36:00 116 Above high normal 98 -107 (mmol/L) Final CO2 11/05/2023 19:36:00 16 Below low normal 22- 32 (mmol/L) Final Anion gap 11/05/2023 19:36:00 10 7-15 (mmol /L) Final Glucose 11/05/2023 19:36:00 89 70-120 (mg /dL) Final Calcium 11/05/2023 19:36:00 8.5 8.4-10.2 ( mg/dL) Final Performing Location [facility]ATORY [facility] - [address] [place] [address]
--- OUTSIDE RECORDS SUMMARY | 2023-12-07 18:27 | External Medical Summary ---
Author Name Unknown Address Unknown Organization K1F:LABORATORY [facility] - [address] [place] [address] Laboratory Report Ordering Provider Test Date Status WENDY MOSERMORENA 11/04/2023 02:34:00 Final Observation Date Value Abnormality Reference (Units ) Status Color of Urine by Auto 11/04/2023 02:34:00 Yellow Light Yellow, Yellow, Dark Yellow Final Clarity, Urine 11/04/2023 02:34:00 Clear Clear Final Glucose [Mass/volume] in Urine by Automated test strip 11/04/2023 02:34:00 Negative Negative (mg/dL) Final Bilirubin.total [Presence] in Urine by Automated test strip 11/04/2023 02:34:00 Negative Negative Final Ketones [Mass/volume] in Urine by Automated test strip 11/04/2023 02:34:00 Negative Negative (mg/dL) Final Specific gravity, Urine 11/04/2023 02:34:00 1.020 1.003-1.030 Final Hemoglobin [Presence] in Urine by Automated test strip 11/04/2023 02:34:00 Trace Abnormal Negative Final pH, Urine 11/04/2023 02:34:00 6.0 5.0-7.5 (Units) Final Protein [Mass/volume] in Urine by Automated test strip 11/04/2023 02:34:00 Trace Abnormal Negative (mg/dL) Final Urobilinogen [Mass/volume] in Urine by Automated test strip 11/04/2023 02:34:00 0.2 0.2, 1.0 (mg/dL) Final Nitrite [Presence] in Urine by Automated test strip 11/04/2023 02:34:00 Negative Negative Final Leukocyte esterase [Presence] in Urine by Automated test strip 11/04/2023 02:34:00 Negative Negative Final Performing Location LABORATORY [facility] - [address] [place] [address]
--- OUTSIDE RECORDS SUMMARY | 2023-12-07 18:27 | External Medical Summary ---
Author Name Unknown Address Unknown Organization K1F:[facility]ATORY [facility] - [address] [place] [address] Laboratory Report Ordering Provider Test Date Status MARTY MOSER 11/06/2023 03:36:00 Final Observation Date Value Abnormality Reference (Units ) Status Phosphate 11/06/2023 03:36:00 3.1 2.5-4.8 (m g/dL) Final Performing Location [facility]ORY [facility] - [address] [place] [address]
--- OUTSIDE RECORDS SUMMARY | 2023-12-07 18:27 | External Medical Summary ---
Author Name Unknown Address Unknown Organization K1F:[facility] - [address] [place] [address] Laboratory Report Ordering Provider Test Date Status SHANTIDAVID JORDANLAWANDA 11/06/2023 03:36:00 Final Observation Date Value Abnormality Reference (Units ) Status BUN 11/06/2023 03:36:00 48 Above high normal 6-20 (mg/dL) Final Creatinine 11/06/2023 03:36:00 1.2 Above high normal 0.5-1.0 (mg/dL) Final Glomerular filtration rate/1.73 sq M.predicted [Volume Rate/Area] in Serum, Plasma or Blood by Creatinine-based formula (CKD-EPI) 11/06/2023 03:36:00 54 Below low normal >=60 (mL/min) Final eGFR is calculated based on the CKD-EPI 2020 equation Sodium 11/06/2023 03:36:00 143 135-146 (m mol/L) Final Potassium 11/06/2023 03:36:00 4.5 3.5-5.1 (m mol/L) Final Cl 11/06/2023 03:36:00 114 Above high normal 98 -107 (mmol/L) Final CO2 11/06/2023 03:36:00 17 Below low normal 22- 32 (mmol/L) Final Anion gap 11/06/2023 03:36:00 12 7-15 (mmol /L) Final Glucose 11/06/2023 03:36:00 127 Above high normal 70 -120 (mg/dL) Final Calcium 11/06/2023 03:36:00 8.7 8.4-10.2 ( mg/dL) Final Performing Location LABORATORY [facility] - [address] [place] [address]
--- OUTSIDE RECORDS SUMMARY | 2023-12-07 18:27 | External Medical Summary ---
Author Name Unknown Address Unknown Organization K01:LABORATORY [facility] - [address] [place] [address] Laboratory Report Ordering Provider Test Date Status MARTY MOSER 11/04/2023 02:34:00 Final Observation Date Value Abnormality Reference (Units) Status Bacteria identified in Specimen by Culture 11/04/2023 02:34:00 No significant growth Final Test: Culture, Urine, Quanti tative
Specimen Source: Urine, Catheter
Specimen Type: Urine
Specimen Date: 11/04/2023 2:34 AM
Result Date: 11/05/2023 9:35 AM
Result Status: Final result
Resulting Lab: LAB[facility]ATORY [facility]
[address]
[facility] [address]

CULTURE

No significant growth

null Performing Location LABORATORY [facility] - [address] [facility] [address]
--- OUTSIDE RECORDS SUMMARY | 2023-12-07 18:27 | External Medical Summary ---
Author Name Unknown Address Unknown Organization K1F:[facility] - [address] [place] [address] Laboratory Report Ordering Provider Test Date Status DAVID MOSERLAWANDA 11/03/2023 18:10:00 Final Observation Date Value Abnormality Reference (Units ) Status BUN 11/03/2023 18:10:00 29 Above high normal 6-20 (mg/dL) Final Creatinine 11/03/2023 18:10:00 1.4 Above high normal 0.5-1.0 (mg/dL) Final Glomerular filtration rate/1.73 sq M.predicted [Volume Rate/Area] in Serum, Plasma or Blood by Creatinine-based formula (CKD-EPI) 11/03/2023 18:10:00 45 Below low normal >=60 (mL/min) Final eGFR is calculated based on the CKD-EPI 2020 equation Sodium 11/03/2023 18:10:00 138 135-146 (m mol/L) Final Potassium 11/03/2023 18:10:00 5.0 3.5-5.1 (m mol/L) Final Cl 11/03/2023 18:10:00 116 Above high normal 98 -107 (mmol/L) Final CO2 11/03/2023 18:10:00 11 Below low normal 22- 32 (mmol/L) Final Anion gap 11/03/2023 18:10:00 11 7-15 (mmol /L) Final Glucose 11/03/2023 18:10:00 85 70-120 (mg /dL) Final Calcium 11/03/2023 18:10:00 8.5 8.4-10.2 ( mg/dL) Final Performing Location [facility]ORY [facility] - [address] [place] [address]
--- OUTSIDE RECORDS SUMMARY | 2023-12-07 18:27 | External Medical Summary ---
Author Name Unknown Address Unknown Organization K1F:LAB[facility]ATORY [facility] - [address] [place] [address] Laboratory Report Ordering Provider Test Date Status MARTY MOSER 11/04/2023 04:44:00 Final Observation Date Value Abnormality Reference (Units ) Status Magnesium 11/04/2023 04:44:00 1.7 1.5-2.6 (m g/dL) Final Performing Location LAB[facility]ATORY [facility] - [address] [place] [address]
--- OUTSIDE RECORDS SUMMARY | 2023-12-07 18:27 | External Medical Summary ---
Author Name Unknown Address Unknown Organization K1F:[facility] - [address] [place] [address] Laboratory Report Ordering Provider Test Date Status DAVID MOSERLAWANDA 11/05/2023 08:09:00 Final Observation Date Value Abnormality Reference (Units ) Status BUN 11/05/2023 08:09:00 40 Above high normal 6-20 (mg/dL) Final Creatinine 11/05/2023 08:09:00 1.0 0.5-1.0 (mg/dL) Final Glomerular filtration rate/1.73 sq M.predicted [Volume Rate/Area] in Serum, Plasma or Blood by Creatinine-based formula (CKD-EPI) 11/05/2023 08:09:00 64 >=60 (mL/min) Final eGFR is calculated based on the CKD-EPI 2020 equation Sodium 11/05/2023 08:09:00 139 135-146 (m mol/L) Final Potassium 11/05/2023 08:09:00 4.5 3.5-5.1 (m mol/L) Final Cl 11/05/2023 08:09:00 115 Above high normal 98 -107 (mmol/L) Final CO2 11/05/2023 08:09:00 18 Below low normal 22- 32 (mmol/L) Final Anion gap 11/05/2023 08:09:00 6 Below low normal 7-1 5 (mmol/L) Final Glucose 11/05/2023 08:09:00 139 Above high normal 70 -120 (mg/dL) Final Calcium 11/05/2023 08:09:00 8.5 8.4-10.2 ( mg/dL) Final Performing Location LABORATORY [facility] - [address] [place] [address]
--- OUTSIDE RECORDS SUMMARY | 2023-12-07 18:27 | External Medical Summary ---
Author Name Unknown Address Unknown Organization K1F:LAB[facility] - [address] [place] [address] Laboratory Report Ordering Provider Test Date Status MARTY MOSER 11/04/2023 19:43:00 Final Observation Date Value Abnormality Reference (Units ) Status BUN 11/04/2023 19:43:00 34 Above high normal 6-20 (mg/dL) Final Creatinine 11/04/2023 19:43:00 1.1 Above high normal 0.5-1.0 (mg/dL) Final Glomerular filtration rate/1.73 sq M.predicted [Volume Rate/Area] in Serum, Plasma or Blood by Creatinine-based formula (CKD-EPI) 11/04/2023 19:43:00 56 Below low normal >=60 (mL/min) Final eGFR is calculated based on the CKD-EPI 2020 equation Sodium 11/04/2023 19:43:00 135 135-146 (m mol/L) Final Potassium 11/04/2023 19:43:00 4.1 3.5-5.1 (m mol/L) Final Cl 11/04/2023 19:43:00 110 Above high normal 98 -107 (mmol/L) Final CO2 11/04/2023 19:43:00 13 Below low normal 22- 32 (mmol/L) Final Anion gap 11/04/2023 19:43:00 12 7-15 (mmol /L) Final Glucose 11/04/2023 19:43:00 154 Above high normal 70 -120 (mg/dL) Final Calcium 11/04/2023 19:43:00 7.8 Below low normal 8.4 -10.2 (mg/dL) Final Performing Location LABORATORY [facility] - [address] [place] [address]
--- OUTSIDE RECORDS SUMMARY | 2023-12-07 18:27 | External Medical Summary ---
Author Name Unknown Address Unknown Organization K1F:LAB[facility]ATORY [facility] - [address] [place] [address] Laboratory Report Ordering Provider Test Date Status MARTY MOSER 11/05/2023 08:09:00 Final Observation Date Value Abnormality Reference (Units ) Status Magnesium 11/05/2023 08:09:00 2.1 1.5-2.6 (m g/dL) Final Performing Location LAB[facility]ATORY [facility] - [address] [place] [address]
--- OUTSIDE RECORDS SUMMARY | 2023-12-07 18:27 | External Medical Summary ---
Author Name Unknown Address Unknown Organization K1F:LABORATORY [facility] - [address] [place] [address] Laboratory Report Ordering Provider Test Date Status DIANDRAMARIELOS REDDY 11/05/2023 08:09:00 Final Observation Date Value Abnormality Reference (Units ) Status Calcium.ionized [Moles/volume] in Serum or Plasma by Ion-selective membrane electrode (ISE) 11/05/2023 08:09:00 1.28 1.13-1.32 (mmol/L) Final This test was developed and its performance characteristics dtermined by [employer]. It has not been cleared or approved by the [place] Food and Drug Administration Performing Location LABORATORY [facility] - [address] [place] [address]
--- OUTSIDE RECORDS SUMMARY | 2023-12-07 18:27 | External Medical Summary ---
Author Name Unknown Address Unknown Organization K1F:LAB[facility]ATORY [facility] - [address] [place] [address] Laboratory Report Ordering Provider Test Date Status MARTY MOSER 11/04/2023 19:43:00 Final Observation Date Value Abnormality Reference (Units ) Status Phosphate 11/04/2023 19:43:00 2.3 Below low normal 2.5 -4.8 (mg/dL) Final Performing Location LAB[facility]ATORY [facility] - [address] [place] [address]
--- OUTSIDE RECORDS SUMMARY | 2023-12-07 18:27 | External Medical Summary ---
Author Name Unknown Address Unknown Organization K1F:LABORATORY [facility] - [address] [place] [address] Laboratory Report Ordering Provider Test Date Status SHANTIDAVID JORDANLAWANDA 11/04/2023 04:44:00 Final Observation Date Value Abnormality Reference (Units ) Status BUN 11/04/2023 04:44:00 30 Above high normal 6-20 (mg/dL) Final Creatinine 11/04/2023 04:44:00 1.2 Above high normal 0.5-1.0 (mg/dL) Final Glomerular filtration rate/1.73 sq M.predicted [Volume Rate/Area] in Serum, Plasma or Blood by Creatinine-based formula (CKD-EPI) 11/04/2023 04:44:00 50 Below low normal >=60 (mL/min) Final eGFR is calculated based on the CKD-EPI 2020 equation Sodium 11/04/2023 04:44:00 134 Below low normal 135 -146 (mmol/L) Final Potassium 11/04/2023 04:44:00 4.8 3.5-5.1 (m mol/L) Final Cl 11/04/2023 04:44:00 111 Above high normal 98 -107 (mmol/L) Final CO2 11/04/2023 04:44:00 11 Below low normal 22- 32 (mmol/L) Final Anion gap 11/04/2023 04:44:00 12 7-15 (mmol /L) Final Glucose 11/04/2023 04:44:00 136 Above high normal 70 -120 (mg/dL) Final Calcium 11/04/2023 04:44:00 7.8 Below low normal 8.4 -10.2 (mg/dL) Final Performing Location LABORATORY [facility] - [address] [place] [address]
--- OUTSIDE RECORDS SUMMARY | 2023-12-07 18:27 | External Medical Summary ---
Author Name Unknown Address Unknown Organization K1F:LABORATORY [facility] - [address] [place] [address] Laboratory Report Ordering Provider Test Date Status YAYOMYRNAJENNIFER 11/04/2023 04:44:00 Final Observation Date Value Abnormality Reference (Units ) Status Calcium.ionized [Moles/volume] in Serum or Plasma by Ion-selective membrane electrode (ISE) 11/04/2023 04:44:00 1.21 1.13-1.32 (mmol/L) Final This test was developed and its performance characteristics dtermined by [employer]. It has not been cleared or approved by the [place] Food and Drug Administration Performing Location LABORATORY [facility] - [address] [place] [address]
--- OUTSIDE RECORDS SUMMARY | 2023-12-07 18:27 | External Medical Summary ---
Author Name Unknown Address Unknown Organization K1F:LAB[facility]ATORY [facility] - [address] [place] [address] Laboratory Report Ordering Provider Test Date Status MARTY MOSER 11/05/2023 19:36:00 Final Observation Date Value Abnormality Reference (Units ) Status Phosphate 11/05/2023 19:36:00 2.7 2.5-4.8 (m g/dL) Final Performing Location LABORATORY [facility] - [address] [place] [address]
--- OUTSIDE RECORDS SUMMARY | 2023-12-07 18:27 | External Medical Summary ---
Author Name Unknown Address Unknown Organization K1F:LAB[facility]ATORY [facility] - [address] [place] [address] Laboratory Report Ordering Provider Test Date Status MARTY MOSER 11/04/2023 19:43:00 Final Observation Date Value Abnormality Reference (Units ) Status Magnesium 11/04/2023 19:43:00 2.0 1.5-2.6 (m g/dL) Final Performing Location LAB[facility]ATORY [facility] - [address] [place] [address]
--- OUTSIDE RECORDS SUMMARY | 2023-12-07 18:27 | External Medical Summary ---
Author Name Unknown Address Unknown Organization K1F:LABORATORY [facility] - [address] [place] [address] Laboratory Report Ordering Provider Test Date Status MARTY MOSER 11/03/2023 18:10:00 Final Observation Date Value Abnormality Reference (Units ) Status WBC, Total 11/03/2023 18:10:00 8.19 4.00-10.80 (K/uL) Final RBC 11/03/2023 18:10:00 3.80 3.85-5.15 (M/uL) Final Hemoglobin 11/03/2023 18:10:00 11.4 Below low normal 12.0-15.3 (g/dL) Final HCT 11/03/2023 18:10:00 38.5 36.0-45.2 (%) Final MCV 11/03/2023 18:10:00 101.3 81.5-97.5 (fL) Final MCH 11/03/2023 18:10:00 30.0 27.0-34.0 (pg) Final MCHC 11/03/2023 18:10:00 29.6 32.0-36.0 (g/dL) Final RDW 11/03/2023 18:10:00 17.7 11.5-15.5 (%) Final Platelets 11/03/2023 18:10:00 159 140-400 (K/uL) Final MPV 11/03/2023 18:10:00 12.1 6.6-11.1 (fL) Final Nucleated erythrocytes/100 leukocytes [Ratio] in Blood by Automated count 11/03/2023 18:10:00 0 <=0 (/100 WBCs) Final Performing Location LABORATORY [facility] - [address] [place] [address]
--- OUTSIDE RECORDS SUMMARY | 2023-12-07 18:27 | External Medical Summary ---
Author Name Unknown Address Unknown Organization K1F:LABORATORY [facility] - [address] [place] [address] Laboratory Report Ordering Provider Test Date Status MARTY MOSER 11/03/2023 18:10:00 Final Observation Date Value Abnormality Reference (Units ) Status Albumin 11/03/2023 18:10:00 3.8 3.8-5.0 (g/dL) Final AST (Aspartate aminotransferase) 11/03/2023 18:10:00 19 10-35 (U/L) Final Alk Phos 11/03/2023 18:10:00 261 Above high normal 35-130 (U/L) Final ALT (Alanine aminotransferase) 11/03/2023 18:10:00 14 10-35 (U/L) Final Bilirubin, Total 11/03/2023 18:10:00 <0.2 <=1.2 (mg/dL) Final Bilirubin, Direct 11/03/2023 18:10:00 <0.2 0.0-0.3 (mg/dL) Final Protein 11/03/2023 18:10:00 6.8 6.0-8.3 (g/dL) Final Performing Location LAB[facility]ATORY [facility] - [address] [place] [address]
--- OUTSIDE RECORDS SUMMARY | 2023-12-07 18:27 | External Medical Summary ---
Author Name Unknown Address Unknown Organization K1F:LABORATORY [facility] - [address] [place] [address] Laboratory Report Ordering Provider Test Date Status MARTY MOSER 11/05/2023 08:09:00 Final Observation Date Value Abnormality Reference (Units ) Status Phosphate 11/05/2023 08:09:00 2.5 2.5-4.8 (m g/dL) Final Performing Location LAB[facility]ATORY [facility] - [address] [place] [address]
--- OUTSIDE RECORDS SUMMARY | 2023-12-07 18:27 | External Medical Summary ---
Author Name Unknown Address Unknown Organization K1F:LABORATORY [facility] - [address] [place] [address] Laboratory Report Ordering Provider Test Date Status MARTY MOSRE 11/03/2023 19:49:00 Final Observation Date Value Abnormality Reference (Units ) Status Magnesium 11/03/2023 19:49:00 2.0 1.5-2.6 (m g/dL) Final Performing Location LAB[facility]ATORY [facility] - [address] [place] [address]
--- OUTSIDE RECORDS SUMMARY | 2023-12-07 18:27 | External Medical Summary ---
Author Name Unknown Address Unknown Organization K1F:LABORATORY [facility] - [address] [place] [address] Laboratory Report Ordering Provider Test Date Status MARTY MOSER 11/04/2023 04:44:00 Final Observation Date Value Abnormality Reference (Units ) Status Phosphate 11/04/2023 04:44:00 2.9 2.5-4.8 (m g/dL) Final Performing Location LAB[facility]ATORY [facility] - [address] [place] [address]
--- OUTSIDE RECORDS SUMMARY | 2023-12-07 18:27 | External Medical Summary ---
Author Name Unknown Address Unknown Organization K1F:[facility] - [address] [place] [address] Laboratory Report Ordering Provider Test Date Status MARTY MOSER 11/04/2023 04:44:00 Final Observation Date Value Abnormality Reference (Units ) Status WBC, Total 11/04/2023 04:44:00 7.23 4.00-10.80 (K/uL) Final RBC 11/04/2023 04:44:00 3.23 3.85-5.15 (M/uL) Final Hemoglobin 11/04/2023 04:44:00 9.6 Below low normal 12.0-15.3 (g/dL) Final HCT 11/04/2023 04:44:00 32.0 Below low normal 36.0-45.2 (%) Final MCV 11/04/2023 04:44:00 99.1 81.5-97.5 (fL) Final MCH 11/04/2023 04:44:00 29.7 27.0-34.0 (pg) Final MCHC 11/04/2023 04:44:00 30.0 32.0-36.0 (g/dL) Final RDW 11/04/2023 04:44:00 17.3 11.5-15.5 (%) Final Platelets 11/04/2023 04:44:00 137 Below low normal 140-400 (K/uL) Final MPV 11/04/2023 04:44:00 12.5 6.6-11.1 (fL) Final Nucleated erythrocytes/100 leukocytes [Ratio] in Blood by Automated count 11/04/2023 04:44:00 0 <=0 (/100 WBCs) Final Performing Location [facility] - [address] [place] [address]
--- OUTSIDE RECORDS SUMMARY | 2023-12-07 18:28 | External Medical Summary | Summary of Care ---
Author Name Unknown Organization [facility] Address [address] [place] [address] Phone [phone] Care Team Providers Care Claims Coordinator Name Role Phone Evelyn Andrews MD Primary Care Prov ider Reason for Visit * Reason Onset Date Comments Medication Refill 11/03/2023 Encounter Details Date Type Department Care Team (Late st Contact Info) Description 11/03/2023 Refill Psychiatry, [place] [address] [place] [address] Duke Marti MD [address] [place] [address] Recurrent major depressive disorder, in partial remission (HCC) Allergies Active Allergy Reactions Criticality Noted Date Comments Amoxicillin Edema airway High 01/22/2003 Oxybutynin 03/25/2023 Mouth ulcers Sulfa Antibiotics Edema airway High 08/15/2006 documented as of this encounter (statuses as of 11/03/2023) Medications Medication Sig Dispensed Refills Start Date End Date Status CYANOCOBALAMIN 1000 MCG/ML IJ SOLN one injection monthly 0 Active CALCITRIOL 0.25 MCG PO CAPS 1 CAPSULE BY MOUTH MONDAYS/MONDAY S/FRIDAYS 5 4 Active [facility] ACETAMINOPHEN EX [address] 500 MG Tablet TAKE 1 CAPSULE BY MOUTH EVERY 4 HOURS 0 0 Active Oyster Shell Calcium 500 MG Oral Tablet Take 2 Tabs by mouth daily. 60 Tab 5 0 Active Dicyclomine HCl 20 MG Oral Tablet (Bentyl)Indications: Nausea and vomiting,Epigastric pain TAKE 1 TABLET BY MOUTH IN THE AM, AT NOON, IN THE PM AND AT BEDTIME NEEDED FOR ABDOMINAL PAIN Strength: 20 mg 480 Tablet 1 3 Active Zinc Sulfate 220 (50 Zn) MG Oral Capsule Take 1 Capsule by mouth in the morning. 30 Capsule 0 3 Active DULoxetine HCl 60 MG Oral Capsule Delayed Release Particles (Cymbalta) Take 2 Capsules by mouth in the morning. 180 Capsule 2 3 Active SUMAtriptan Succinate 50 MG Oral Tablet (Imitrex)Indications :Migraine variant MAX OF 2 TABS PER ATTACK AND NO MORE THAN 3 X WEEKLY 10 Tablet 5 3 Active ALPRAZolam 0.25 MG Oral Tablet (xaNAX)Indications:A nxiety Take 1 Tablet by mouth at bedtime as needed for Sleep. 30 Tablet 3 3 Active guaiFENesin-Codeine 100-10 MG/5ML Oral Syrup (Robitussin AC)Indications:COVID -19 Take 5 mL by mouth every 4 hours as needed for Cough. 120 mL 0 4 Active OLANZapine 5 MG Oral Tablet Disintegrating (zyPREXA zyDIS) Place 1 Tablet on tongue in the morning. 30 Tablet 5 4 Active Omeprazole 20 MG Oral Capsule Delayed Release (PriLOSEC) TAKE 1 CAPSULE BY MOUTH EVERY DAY IN THE MORNING 90 Capsule 4 4 Active Diphenoxylate-Atropi ne 2.5-0.025 MG Oral Tablet (Lomotil)Indications :Migraine variant TAKE ONE TABLET BY MOUTH 4 TIMES DAILY NEEDED FOR DAIRRHEA 60 Tablet 0 4 Active Promethazine HCl 25 MG Oral Tablet (Phenergan)Indicatio ns:Nausea Take 1 Tablet by mouth every 8 hours as needed for Nausea. 30 Tablet 3 4 Active Rizatriptan Benzoate 10 MG Oral Tablet (Maxalt)Indications: Migraine variant TAKE 1 TAB BY MOUTH DAILY NEEDED FOR MIGRAINE. 10 Tablet 5 4 Active Wffddqpamo-QZHX-Ucuv eine 50-325-40 MG Oral Tablet (Fioricet)Indication s:Migraine variant TAKE ONE TABLET EVERY 6 HOURS NEEDED FOR PAIN 90 Tablet 1 4 Active Pregabalin 25 MG Oral Capsule (Lyrica)Indications: Copper deficiency myeloneuropathy (HCC),Hereditary and idiopathic peripheral neuropathy Take 1 Capsule by mouth in the morning and 1 Capsule before bedtime. 60 Capsule 5 4 Active Ferrous Sulfate 325 (65 Fe) MG Oral Tablet (Feosol) Take 1 Tablet by mouth daily at noon. 30 Tablet 0 4 11/09/19 24 Active Ascorbic Acid 250 MG Oral Tablet Take 1 Tablet by mouth daily at noon. 30 Tablet 0 4 11/09/19 24 Active Vitamin E 400 UNIT Oral Capsule (Aquasol E) Take 1 Capsule by mouth in the morning. 30 Capsule 0 4 11/09/19 24 Active Sodium Bicarbonate 650 MG Oral Tablet Take 2 Tablets by mouth in the morning and 2 Tablets before bedtime. 120 Tablet 0 4 11/09/19 24 Active Cholestyramine Light 4 GM Oral Packet (Prevalite) Mix 1 packet in 4 to 6 ounces of your favorate NONCARBONATED beverage and stir vigorously and drink by mouth daily in the morning. 30 Packet 0 4 11/09/19 24 Active Ergocalciferol 1.25 MG (82038 UT) Oral Capsule (Vitamin D2(Drisdol)) Take 1 Capsule by mouth once a day on Monday, Monday, and Monday only. 12 Capsule 0 4 11/09/19 24 Active busPIRone HCl 5 MG Oral Tablet (Buspar) Take 1 Tablet by mouth in the morning and 1 Tablet at noon and 1 Tablet before bedtime. 90 Tablet 0 4 11/09/19 24 Active Lidocaine 4 % External Patch (Aspercreme)Indicati ons:Myelopathy (HCC) Place 1 Patch over 12 hours topically on the skin daily. 90 Patch 3 4 Active traMADol HCl 50 MG Oral Tablet (Ultram)Indications: Other idiopathic scoliosis, thoracic region,Chronic midline thoracic back pain Take 1 Tablet by mouth daily as needed for Pain, Severe. 30 Tablet 0 4 Active Nystatin 861637 UNIT/GM External Cream APPLY TO AFFECTED AREA TWICE A DAY 30 g 2 4 Active Ondansetron 4 MG Oral Tablet Disintegrating (Zofran)Indications: Intractable vomiting with nausea PLACE 1 TABLET ON TONGUE EVERY 8 HOURS NEEDED FOR NAUSEA. 90 Tablet 1 4 Active Mirtazapine 45 MG Oral Tablet (Remeron)Indications :Recurrent major depressive disorder, in partial remission (HCC) Take 1 Tablet by mouth at bedtime. 30 Tablet 3 4 Active Mirtazapine 45 MG Oral Tablet (Remeron)Indications :Recurrent major depressive disorder, in partial remission (HCC) Take 1 Tablet by mouth at bedtime. 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 02/06/2017 05/02/2018 DIGITAL ADVERTISING ANALYST 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 02/06/2017 07/09/2019 Iron deficiency anemia 06/28/201109/20 Overview: ICD-10 update of inactive term Iron deficiency anemia 06/28/201109/20 Overview: ICD-10 update of inactive term Iron deficiency anemia pat paulino to inadequate dietary iron intake 09/26/2008 3 Secondary hyperparathyroidism, non-renal 03/27/2007 10/24/2023 Infected postoperative seroma 06/02/2003 09/20/2012 PANNICULITIS, [facility] SITE 05/14/2003 09/0 11/2022 documented as of this encounter (statuses as of 11/03/2023) Immunizations Name Administration Dates Next Due COVID-19 mRNA, LNP-s, No Pre serve, 2-Dose Series (Pfizer) 02/16/2021,11/25/2020,11/01/2020 COVID-19, MRNA-LNP, 23-24, P F, 30 MCG/0.3 mL, 12 YRS AND ABOVE, IM (PFIZER-Comirnat) 04/10/2023 Covid-19, Mrna, Lnp-s, Pf, B ivalent, 30 Mcg, IM, 12 yrs and above (Pfizer) 04/12/2022 Pneumococcal Conjugate Vacci ne, 20-valent ([id number]) 12/10/2021 Pneumococcal Polysaccharide PPV23 (Pneumovax) 07/21/2009 Seasonal [...] you have serious difficulty h earing? No 09/20/2023 Are you blind or do you have serious difficulty seeing, even when wearing glasses? No 09/20/2023 Do you have serious difficul ty walking or climbing stairs? (5 years old or older) Yes 09/20/2023 Do you have difficulty dress ing or bathing? (5 years old or older) Yes 09/20/2023 Because of a physical, menta l, or emotional condition, do you have difficulty doing errands alone such as visiting a doctor s office or shopping? (15 years old or older) No 09/20/19 Cognitive Status Response Date of Assessm ent Because of a physical, menta l, or emotional condition, do you have serious difficulty concentrating, remembering, or making decisions? (5 years old or older) Yes 09/20/2023 documented as of this encounter Miscellaneous Notes * Telephone Encounter - Duke Marti MD - 11/03/2023 11:48 AM EDTSigned Prescriptions: Disp Refills Mirtazapine 45 MG Oral Tablet (Remeron) 30 Tab*3 Sig: Take 1 Tablet by mouth at bedtime. Authorizing Provider: DUKE MARTI * Telephone Encounter - Nataly Kimble MED ASSIST - 11/03/2023 9:48 AM EDT Pharmacy requesting refill on Mirtazapine 45mg. Medication was last filled on 04/12/23 with 3 refills. Patient last seen on 10/03/23 with return appointment scheduled for 11/29/23. Patient had 0 cancelled appointments and 1 NO SHOW appointments. documented in this encounter Plan of Treatment Upcoming Encounters Date Type Department Care Team (Late st Contact Info) Description 11/08/2023 10:20 AM EDT Office Visit Family Medicine [address] [phone] Evelyn Andrews MD [address] [place] [address] [place] [address] 11/29/2023 5:00 PM EDT Telemedicine Psychiatry [facility] [place] [address] [address] Duke Marti MD [address] [place] [address] 12/04/2023 3:45 PM EDT Office Visit Urology, [facility] [address] [place] [address] Christopher Almonte MD 27 [facility] [address] [place] [address] 04/29/2024 8:40 AM EST Office Visit Neurology [facility] [address] [place] [address] Aris Mohr MD [address] [facility] [place] [address] 09/16/2024 11:20 AM EDT Office Visit Neurology [facility] [address] [place] [address] Jodee Austin MD [address] [place] [address] Health Maintenance Due Date Last Done Comments HPV/Co-Test 1993 Cologuard 2008 Fecal Occult Blood Test 2008 Sigmoidoscopy 2008 Mammogram 08/18/2011 08/18/2010, 08/11/2009 Cervical Cancer Screening 09/27/2014 Pap Smear 09/27/2014 09/28/2011, 07/11/2010, 07/07/2010, Additional history exists Depression, Most Recent Score >= 10 (will fire each visit until score < 10) 05/23/2023 05/22/2023 Colonoscopy 12/11/2023 12/10/2013, 11/24, 01/15/2007 Colorectal Cancer Screening 12/11/2023 GFR 04/10/2024 10/10/2023, 09/24, 10/09/2023, Additional history exists Albumin/Creatinine Ratio 08/23/2024 024, 08/23/2022, 09/20/2021 CKD HGB USE SMARTSET 18862 10/08/202410/08, 10/06/2023, 10/05/2023, Additional history exists CKD PHOS USE SMARTSET 30172 10/09/202409/24, 10/09/2023, 10/08/2023, Additional history exists DTaP,Tdap,and Td Vaccines (2 [...] this encounter Medical Devices Implanted Type Area Jumpbasting Armhole Baster Device Identifier Shelf Expiration Date Model / Serial / Lot Stent Axios 20mm - [id number] Implanted:Qty: 1 on 01/04/2021 by Leyda Garcia MD at OR 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 FOR LIFE-SUSTAINING TREATMENT Latest Code Status on File Code Status Date Activated Date Inactivated Comments No Code 09/20/2023 2:18 PM 10/10/2023 4:01 PM This order reflects the patients wishes and were consensually agreed upon. Question Answer Comments Discussion of Advance Directives occurred with: Patient Code Status History Code Status Date Activated Date Inactivated Comments No Code 12/08/2022 11:17 AM 12/15/2022 8:22 [...] Advance Directives occurred with: Patient Full Code 11/17/2022 3:28 PM 11/18/2022 8:06 AM This order reflects the patients wishes and were consensually agreed upon. Question Answer Comments Discussion of Advance Directives occurred with: Patient Healthcare Agents on File Name Relationship Healthcare Agent Relationship Communication Ariella Acosta Other - (no specific identity) Health Care Professor Of Forestry (appointed verbally by patient or by statute hierarchy) Rowdy Hogue Sibling Health Care Professor Of Forestry (appointed verbally by patient or by statute hierarchy) Care Teams Claims Coordinator Relationship Specialty Start Date End Date Evelyn Andrews MD [address] [place] [address] [place] [phone] PCP - General Family Medicine 05/04/18 documented as of this encounter
--- OUTSIDE RECORDS SUMMARY | 2023-12-07 18:28 | External Medical Summary | Summary of Care ---
Author Name Unknown Organization [facility] Address [address] [place] [address] Phone [phone] Care Team Providers Care Crewman Armoured Personnel Carrier [id number] Name Role Phone Evelyn Andrews MD Primary Care Prov ider Reason for Visit * Reason Onset Date Comments total parental nutrition 11/01/2023 Encounter Details Date Type Department Care Team (Late st Contact Info) Description 11/01/2023 Telephone Nutrition & Weight Management, [place] [address] [place] [address] Juliet Boswell MD [address] [place] [address] total parental nutrition Allergies Active Allergy Reactions Criticality Noted Date Comments Amoxicillin Edema airway High 01/22/2003 Oxybutynin 03/25/2023 Mouth ulcers Sulfa Antibiotics Edema airway High 08/15/2006 documented as of this encounter (statuses as of 11/01/2023) Medications Medication Sig Dispensed Refills Start Date [...] X WEEKLY 10 Tablet 5 03/16/2023 Active Mirtazapine 45 MG Oral Tablet (Remeron)Indications :Recurrent major depressive disorder, in partial remission (HCC) Take 1 Tablet by mouth at bedtime. 30 Tablet 3 04/12/2023 Active ALPRAZolam 0.25 MG Oral Tablet (xaNAX)Indications:A nxiety Take 1 Tablet by mouth at bedtime as needed for Sleep. 30 Tablet 3 06/14/2023 Active guaiFENesin-Codeine 100-10 MG/5ML Oral Syrup (Robitussin AC)Indications:COVID -19 Take 5 mL by mouth every 4 hours as needed for Cough. 120 mL 0 06/28/2023 Active Nystatin 612122 UNIT/GM External Cream APPLY TO AFFECTED AREA TWICE A DAY 30 g 2 06/30/2023 Active OLANZapine 5 MG Oral Tablet Disintegrating [...] FOR MIGRAINE. 10 Tablet 5 09/18/2023 Active Nmfjewwdmu-AKAT-Ocal eine 50-325-40 MG Oral Tablet (Fioricet)Indication s:Migraine variant TAKE ONE TABLET EVERY 6 HOURS NEEDED FOR PAIN 90 Tablet 1 09/19/2023 Active Pregabalin 25 MG Oral Capsule (Lyrica)Indications: Copper deficiency myeloneuropathy (HCC),Hereditary and idiopathic peripheral neuropathy Take 1 Capsule by mouth in the morning and 1 Capsule before bedtime. 60 Capsule 5 09/19/2023 Active Ondansetron 4 MG Oral Tablet Disintegrating (Zofran)Indications: Intractable vomiting with nausea PLACE 1 TABLET ON TONGUE EVERY 8 HOURS NEEDED FOR NAUSEA. 90 Tablet 1 09/19/2023 Active Ferrous Sulfate 325 (65 Fe) [...] 30 Packet 0 10/10/2023 11/09/19 24 Active Ergocalciferol 1.25 MG (12672 UT) Oral Capsule (Vitamin D2(Drisdol)) Take 1 [...] Pain, Severe. 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 02/06/2017 05/02/2018 WOOD CRAFTER 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 02/06/2017 07/09/2019 Iron deficiency anemia 06/28/201109/20 Overview: ICD-10 update of inactive term Iron deficiency anemia 06/28/201109/20 Overview: ICD-10 update of inactive term Iron deficiency anemia pat paulino to inadequate dietary iron intake 09/26/2008 3 Secondary hyperparathyroidism, non-renal 03/27/2007 10/24/2023 Infected postoperative seroma 06/02/2003 09/20/2012 [facility] 09/0 11/2022 documented as of this encounter (statuses as of 11/01/2023) Immunizations Name Administration Dates Next Due COVID-19 mRNA, LNP-s, No Pre serve, 2-Dose Series ([employer]) 02/16/2021,11/25/2020,11/01/2020 COVID-19, MRNA-LNP, 23-24, P F, 30 MCG/0.3 mL, 12 YRS AND ABOVE, IM (PFIZER-Comirnaty) 04/10/2023 Covid-19, Mrna, Lnp-s, Pf, B ivalent, 30 Mcg, IM, 12 yrs and above (Pfizer) 04/12/2022 Pneumococcal Conjugate Vacci ne, 20-valent ([id number]) 12/10/2021 Pneumococcal Polysaccharide PPV23 (Pneumovax) 07/21/2009 Seasonal [...] (15 years old or older) No 09/20/19 24 Cognitive Status Response Date of Assessm ent Because of a physical, menta l, or emotional condition, do you have serious difficulty concentrating, remembering, or making decisions? (5 years old or older) Yes 09/20/2023 documented as of this encounter Miscellaneous Notes * Telephone Encounter - Juliet Boswell MD - 11/01/2023 11:54 AM EDT At the direction of Dr. Vic Wilkerson, admission to inpatient at [facility] for 11/03/2023 has been initiated. I spoke with the hospitalist at [facility] over the phone who accepted the patient. Plan for admission for failure to thrive and initiation of TPN. We will continue to follow patient and manage the TPN while she is inpatient. Juliet Boswell MD documented in this encounter Plan of Treatment Upcoming Encounters Date Type Department Care Team (Late st Contact Info) Description 11/03/2023 Hospital Encounter Admissions [address] [address] Alen Larsen MD [address] [place] [address] [place] [address] 11/08/2023 10:20 AM EDT Office Visit Family Medicine [facility] [place] [place] [phone] Evelyn Andrews MD [address] [place] [address] [place] [address] 11/29/2023 5:00 PM EDT Telemedicine Psychiatry [facility] [place] [address] [place] [address] Alexis Serna MD [address] [place] [address] 12/04/2023 3:45 PM EDT Office Visit Urology, [facility] [address] [facility] [place] [address] Christopher Almonte MD 27 [facility] [address] [place] [address] 04/29/2024 8:40 AM EST Office Visit Neurology [facility] [address] [place] [address] Aris Mohr MD [address] [place] [address] 09/16/2024 11:20 AM EDT Office Visit Neurology [facility] [address] [place] [address] JuniorJodee MD [address] [place] [address] Health Maintenance Due Date Last [...] 024, 08/23/2022, 09/20/2021 CKD HGB USE SMARTSET 96948 10/08/202410/08, 10/06/2023, 10/05/2023, Additional history exists CKD PHOS USE SMARTSET 17270 10/09/202409/24, 10/09/2023, 10/08/2023, Additional history exists DTaP,Tdap,and [...] this encounter Medical Devices Implanted Type Area Oil Producer Device Identifier Shelf Expiration Date Model / Serial / Lot Stent Axios 20mm - [id number] Implanted:Qty: 1 on 01/04/2021 by Leyda Garcia MD at OR [facility] N/A: Stomach [employer] : ENDOSCOPY 11/20/2021 [id number] / / [id number] documented as of this encounter Advance Directives Documents on File Type Date Recorded Patient 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
--- OUTSIDE RECORDS SUMMARY | 2023-12-07 18:28 | External Medical Summary | Summary of Care ---
Author Name Unknown Organization [facility] Address [address] [place] [address] Phone [phone] Care Team Providers Care Bisque Tile Burner Name Role Phone Evelyn Andrews MD Primary Care Prov ider Reason for Visit * Reason Comments eRx-Medication Refill Encounter Details Date Type Department Care Team (Late st Contact Info) Description 11/01/2023 Refill Urology, [facility] [address] [place] [address] Christopher Alegria MD 27 [facility] [address] [place] [address] Allergies Active Allergy Reactions Criticality Noted Date Comments Amoxicillin Edema airway High 01/22/2003 Oxybutynin 03/25/2023 Mouth ulcers Sulfa Antibiotics Edema airway High 08/15/2006 documented as of this encounter (statuses as of 11/02/2023) Medications Medication Sig Dispensed Refills Start Date End Date Status CYANOCOBALAMIN 1000 MCG/ML IJ SOLN one injection monthly 0 Active CALCITRIOL 0.25 MCG PO CAPS 1 CAPSULE BY MOUTH MONDAYS/MONDAY S/FRIDAYS 5 04/10/20 14 Active [facility] ACETAMINOPHEN EX ST 500 MG Tablet TAKE 1 CAPSULE BY MOUTH EVERY 4 HOURS 0 07/03/19 20 Active Oyster Shell Calcium 500 MG Oral Tablet Take 2 Tabs by mouth daily. 60 Tab 5 04/07/20 20 Active Dicyclomine HCl 20 MG Oral Tablet (Bentyl)Indications :Nausea and vomiting,Epigastric pain TAKE 1 TABLET BY MOUTH IN THE AM, AT NOON, IN THE PM AND AT BEDTIME NEEDED FOR ABDOMINAL PAIN Strength: 20 mg 480 Tablet 1 09/29/19 23 Active Zinc Sulfate 220 (50 Zn) MG Oral Capsule Take 1 Capsule by mouth in the morning. 30 Capsule 0 12/16/19 23 Active DULoxetine HCl 60 MG Oral Capsule Delayed Release Particles (Cymbalta) Take 2 Capsules by mouth in the morning. 180 Capsule 2 02/22/20 23 Active SUMAtriptan Succinate 50 MG Oral Tablet (Imitrex)Indication s:Migraine variant MAX OF 2 TABS PER ATTACK AND NO MORE THAN 3 X WEEKLY 10 Tablet 5 03/16/20 23 Active Mirtazapine 45 MG Oral Tablet (Remeron)Indication s:Recurrent major depressive disorder, in partial remission (HCC) Take 1 Tablet by mouth at bedtime. 30 Tablet 3 04/12/20 23 Active ALPRAZolam 0.25 MG Oral Tablet (xaNAX)Indications: Anxiety Take 1 Tablet by mouth at bedtime as needed for Sleep. 30 Tablet 3 06/14/20 23 Active guaiFENesin-Codeine 100-10 MG/5ML Oral Syrup (Robitussin AC)Indications:COVI D-19 Take 5 mL by mouth every 4 hours as needed for Cough. 120 mL 0 06/28/19 24 Active OLANZapine 5 MG Oral Tablet Disintegrating (zyPREXA zyDIS) Place 1 Tablet on tongue in the morning. 30 Tablet 5 07/04/19 24 Active Omeprazole 20 MG Oral Capsule Delayed Release (PriLOSEC) TAKE 1 CAPSULE BY MOUTH EVERY DAY IN THE MORNING 90 Capsule 4 07/26/19 24 Active Diphenoxylate-Atrop ine 2.5-0.025 MG Oral Tablet (Lomotil)Indication s:Migraine variant TAKE ONE TABLET BY MOUTH 4 TIMES DAILY NEEDED FOR DAIRRHEA 60 Tablet 0 08/09/19 24 Active Promethazine HCl 25 MG Oral Tablet (Phenergan)Indicati ons:Nausea Take 1 Tablet by mouth every 8 hours as needed for Nausea. 30 Tablet 3 08/15/19 24 Active Rizatriptan Benzoate 10 MG Oral Tablet (Maxalt)Indications :Migraine variant TAKE 1 TAB BY MOUTH DAILY NEEDED FOR MIGRAINE. 10 Tablet 5 09/18/19 24 Active Jejxcgfagy-RHYL-Unl feine 50-325-40 MG Oral Tablet (Fioricet)Indicatio ns:Migraine variant TAKE ONE TABLET EVERY 6 HOURS NEEDED FOR PAIN 90 Tablet 1 09/19/19 24 Active Pregabalin 25 MG Oral Capsule (Lyrica)Indications :Copper deficiency myeloneuropathy (HCC),Hereditary and idiopathic peripheral neuropathy Take 1 Capsule by mouth in the morning and 1 Capsule before bedtime. 60 Capsule 5 09/19/19 24 Active Ondansetron 4 MG Oral Tablet Disintegrating (Zofran)Indications :Intractable vomiting with nausea PLACE 1 TABLET ON TONGUE EVERY 8 HOURS NEEDED FOR NAUSEA. 90 Tablet 1 09/19/19 24 Active Ferrous Sulfate 325 (65 Fe) MG Oral Tablet (Feosol) Take 1 Tablet by mouth daily at noon. 30 Tablet 0 10/10/19 24 024 Active Ascorbic Acid 250 MG Oral Tablet Take 1 Tablet by mouth daily at noon. 30 Tablet 0 10/10/19 24 024 Active Vitamin E 400 UNIT Oral Capsule (Aquasol E) Take 1 Capsule by mouth in the morning. 30 Capsule 0 10/10/19 24 024 Active Sodium Bicarbonate 650 MG Oral Tablet Take 2 Tablets by mouth in the morning and 2 Tablets before bedtime. 120 Tablet 0 10/10/19 24 024 Active Cholestyramine Light 4 GM Oral Packet (Prevalite) Mix 1 packet in 4 to 6 ounces of your favorate NONCARBONATED beverage and stir vigorously and drink by mouth daily in the morning. 30 Packet 0 10/10/19 24 024 Active Ergocalciferol 1.25 MG (97508 UT) Oral Capsule (Vitamin D2(Drisdol)) Take 1 Capsule by mouth once a day on Monday, Monday, and Monday only. 12 Capsule 0 10/10/19 24 024 Active busPIRone HCl 5 MG Oral Tablet (Buspar) Take 1 Tablet by mouth in the morning and 1 Tablet at noon and 1 Tablet before bedtime. 90 Tablet 0 10/10/19 24 024 Active Lidocaine 4 % External Patch (Aspercreme)Indicat ions:Myelopathy (HCC) Place 1 Patch over 12 hours topically on the skin daily. 90 Patch 3 10/16/19 24 Active traMADol HCl 50 MG Oral Tablet (Ultram)Indications :Other idiopathic scoliosis, thoracic region,Chronic midline thoracic back pain Take 1 Tablet by mouth daily as needed for Pain, Severe. 30 Tablet 0 10/24/19 24 Active Nystatin 909296 UNIT/GM External Cream APPLY TO AFFECTED AREA TWICE A DAY 30 g 2 11/02/19 24 Active Nystatin 038352 UNIT/GM External Cream APPLY TO AFFECTED AREA TWICE A DAY 30 g 2 06/30/19 24 024 Discontinued documented as of this encounter (statuses as of 11/02/2023) Active Problems Problem Noted Date Diagnosed Date [...] as of this encounter (statuses as of 11/02/2023) Resolved Problems Problem Noted Date Diagnosed Date Resolved Date Old ID (myocardial infarction) 03/01/2023 03/01/2023 Atherosclerosis of [place] co ronary artery without angina pectoris 02/08/2022 [...] malnutrition 09/28/2018 09/23/2021 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/2021 CORRECTIVE THERAPY AIDE 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 02/06/2017 05/02/2018 CORRECTIVE THERAPY AIDE 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 02/06/2017 07/09/2019 Iron deficiency anemia 06/28/201109/20 Overview: ICD-10 update of inactive term Iron deficiency anemia 06/28/201109/20 Overview: ICD-10 update of inactive term Iron deficiency anemia pat paulino to inadequate dietary iron intake 09/26/2008 3 Secondary hyperparathyroidism, non-renal 03/27/2007 10/24/2023 Infected postoperative seroma 06/02/2003 09/20/2012 PANNICULITIS, UNSP SITE 05/14/2003 09/0 11/2022 documented as of this encounter (statuses as of 11/02/2023) Immunizations Name Administration Dates Next Due COVID-19 mRNA, LNP-s, No Pre serve, 2-Dose Series ([employer]) 02/16/2021,11/25/2020,11/01/2020 COVID-19, MRNA-LNP, 23-24, P F, 30 MCG/0.3 mL, 12 YRS AND ABOVE, IM ([employer]) 04/10/2023 Covid-19, Mrna, Lnp-s, Pf, B ivalent, 30 Mcg, IM, 12 yrs and above (Pfizer) 04/12/2022 Pneumococcal Conjugate Vacci ne, 20-valent ([id number]) 12/10/2021 Pneumococcal Polysaccharide PPV23 (Pneumovax) 07/21/2009 Seasonal [...] encounter Miscellaneous Notes * Telephone Encounter - Christopher Alegria MD - 11/02/2023 12:51 PM EDT Signed Prescriptions: Disp Refills Nystatin 870698 UNIT/GM External Cream 30 g 2 Sig: APPLY TO AFFECTED AREA TWICE A DAY Authorizing Provider: CHRISTOPHER ALEGRIA * Telephone Encounter - Jud Etienne LPN - 11/02/2023 8:07 AM EDT Pending Prescriptions: Disp Refills Nystatin 348827 UNIT/GM External Cream [Ph*30 g 2 Sig: APPLY TO AFFECTED AREA TWICE A DAY * Telephone Encounter - Jud Etienne LPN - 11/02/2023 8:07 AM EDT Refill of Nystatin cream requested Last appt: 04/03/2023 (in office), Visit date not found (telemedicine) Next appt: 12/04/2023 Review of patient's allergies indicates: Allergen Reactions Amoxicillin Edema airway Sulfa Antibiotics Edema airway Oxybutynin Mouth ulcers Thank you Carmela documented in this encounter Plan of Treatment Upcoming Encounters Date Type Department Care Team (Late st Contact Info) Description 11/03/2023 Hospital Encounter Admissions [facility] [address] [place] [address] Alen Larsen MD [address] [place] [address] Services [place], [place] [id number] 11/08/2023 10:20 AM EDT Office Visit Family Medicine [address] [phone] Evelyn Andrews MD [address] [place] [address] [place] [address] 11/29/2023 5:00 PM EDT Telemedicine Psychiatry Vanessa Alex [address] [place] [phone] Alexis Serna MD [address] [place] [phone] 12/04/2023 3:45 PM EDT Office Visit Urology, [facility] [address] [place] [place] [address] Christopher Alegria MD [address] [place] [address] 04/29/2024 8:40 AM EST Office Visit Neurology [facility] [address] [place] [address] Aris Mohr MD [address] [place] [address] 09/16/2024 11:20 AM EDT Office Visit Neurology [facility] [address] [facility] [place] [address] [facility] [address] [place] [address] Health Maintenance Due Date Last Done Comments [...] 024, 08/23/2022, 09/20/2021 CKD HGB USE SMARTSET 31830 10/08/202410/08, 10/06/2023, 10/05/2023, Additional history exists CKD PHOS USE SMARTSET 48909 10/09/202409/24, 10/09/2023, 10/08/2023, Additional history exists DTaP,Tdap,and [...] this encounter Medical Devices Implanted Type Area Customer Counter Associate Device Identifier Shelf Expiration Date Model / Serial / Lot Stent Axios 20mm - [id number] Implanted:Qty: 1 on 01/04/2021 by Leyda Garcia MD at OR [facility] N/A: Stomach [employer] : ENDOSCOPY 11/20/2021 [id number] / / [id number] documented as of this encounter Advance Directives Documents on File Type Date Recorded Patient Air Analyst Expl anation POLST 01/03/2022 [place] OR [facility] FOR LIFE-SUSTAINING TREATMENT Latest Code [...] Other - (no specific identity) Health Care Air Analyst (appointed verbally by patient or by statute hierarchy) Rowdy Mykel Kraus Health Care Air Analyst (appointed verbally by patient or by statute hierarchy) Care Teams Bisque Tile Burner Relationship Specialty Start Date End Date Evelyn Andrews MD [address] [place] [address] [place] [address] PCP - General Family Medicine 05/04/18 documented as of this encounter
--- OUTSIDE RECORDS SUMMARY | 2023-12-07 18:28 | External Medical Summary | Summary of Care ---
Author Name Unknown Organization [facility] Address [address] [place] [address] Phone [phone] Care Team Providers Care Supervisor Smoke Control Name Role Phone Evelyn Andrews MD Primary Care Prov ider Encounter Details Date Type Department Care Team (Late st Contact Info) Description 10/31/2023 2:00 PM EDT Telemedicine Nutrition & Weight Management, [place] [address] [place] [address] Vic Wilkerson, [address] [place], [place] [id number] Severe protein-energy malnutrition (HCC)*; Diarrhea due to malabsorption; Depression, unspecified depression type Allergies Active Allergy Reactions Criticality Noted Date Comments Amoxicillin Edema airway High 01/22/2003 Oxybutynin 03/25/2023 Mouth ulcers Sulfa Antibiotics Edema airway High 08/15/2006 documented as of this encounter (statuses as of 10/31/2023) Medications Medication Sig Dispensed Refills Start Date [...] Cough. 120 mL 0 06/28/2023 Active Nystatin 601935 UNIT/GM External Cream APPLY TO AFFECTED AREA [...] FOR MIGRAINE. 10 Tablet 5 09/18/2023 Active Pvwagxbjjd-OALC-Wizl eine 50-325-40 MG Oral Tablet (Fioricet)Indication s:Migraine [...] 10/10/2023 11/09/19 24 Active Ergocalciferol 1.25 MG (53955 UT) Oral Capsule (Vitamin D2(Drisdol)) Take 1 [...] Pain, Severe. 30 Tablet 0 10/24/2023 Active Nitrofurantoin Monohyd Macro 100 MG Oral Capsule (Macrobid)Indication s:Acute cystitis with hematuria Take 1 Capsule by mouth in the morning and 1 Capsule before bedtime. Do all this for 7 days. With food until gone. 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 02/06/2017 05/02/2018 SHEEP FARM MANAGER 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 02/06/2017 07/09/2019 Iron deficiency anemia 06/28/201109/20 Overview: ICD-10 update of inactive term Iron deficiency anemia 06/28/201109/20 Overview: ICD-10 update of inactive term Iron deficiency anemia pat paulino to inadequate dietary iron intake 09/26/2008 3 Secondary hyperparathyroidism, non-renal 03/27/2007 10/24/2023 Infected postoperative seroma 06/02/2003 09/20/2012 PANNICULITIS, UNSP SITE 05/14/2003 09/0 11/2022 documented as of this encounter (statuses as of 10/31/2023) Immunizations Name Administration Dates Next Due COVID-19 mRNA, LNP-s, No Pre serve, 2-Dose Series ([employer]) 02/16/2021,11/25/2020,11/01/2020 COVID-19, MRNA-LNP, 23-24, P F, 30 MCG/0.3 mL, 12 YRS AND ABOVE, IM ([facility]) 04/10/2023 Covid-19, Mrna, Lnp-s, Pf, B ivalent, 30 Mcg, IM, 12 yrs and above (Pfizer) 04/12/2022 Pneumococcal Conjugate Vacci ne, 20-valent ([id number]) 12/10/2021 Pneumococcal Polysaccharide PPV23 (Pneumovax) 07/21/2009 Seasonal [...] Yes 09/20/2023 documented as of this encounter Progress Notes * Vci Wilkerson, DO - 10/31/2023 1:49 PM EDT Evelyn Mobley MD Patient location: HOME. I was in a hospital or clinic location. After connecting through televideo,patient was verified with two unique identifiers. Patient (or authorized legal chain sales representative) was then informed that this [...] 04/05/2007 Wt Readings from Last 6 Encounters: 10/24/23 37.6 kg (83 lb) 10/23/23 37.7 kg (83 lb 1.6 oz) 10/17/23 38.9 kg (85 lb 11.2 oz) 10/11/23 40.6 kg (89 lb 9.6 oz) 10/10/23 41.5 kg (91 lb 6.4 oz) 08/15/23 35.4 kg (78 lb) Current Outpatient Medications Medication Sig Dispense Refill [...] THAN 3 X WEEKLY 10 Tablet 5 Mirtazapine 45 MG Oral Tablet (Remeron) Take 1 Tablet by mouth at bedtime. 30 Tablet 3 ALPRAZolam 0.25 MG Oral Tablet (xaNAX) Take 1 Tablet by mouth at bedtime as needed for Sleep. 30 Tablet 3 guaiFENesin-Codeine 100-10 MG/5ML Oral Syrup (Robitussin AC) Take 5 mL by mouth every 4 hours as needed for Cough. 120 mL 0 Nystatin 975480 UNIT/GM External Cream APPLY TO AFFECTED AREA TWICE A DAY 30 g 2 OLANZapine 5 MG Oral Tablet Disintegrating (zyPREXA zyDIS) Place 1 Tablet on tongue in the morning.30 Tablet 5 Omeprazole 20 MG Oral Capsule Delayed Release (PriLOSEC) TAKE 1 CAPSULE BY MOUTH EVERY DAY IN THE MORNING 90 Capsule 4 Diphenoxylate-Atropine 2.5-0.025 MG Oral Tablet (Lomotil) TAKE ONE TABLET BY MOUTH 4 TIMES DAILY ASNEEDED FOR DAIRRHEA 60 Tablet 0 Promethazine HCl 25 MG Oral Tablet (Phenergan) Take 1 Tablet by mouth every 8 hours as needed for Nausea. 30 Tablet 3 Rizatriptan Benzoate 10 MG Oral Tablet (Maxalt) TAKE 1 TAB BY MOUTH DAILY NEEDED FOR MIGRAINE. 10 Tablet 5 Sioyafspqm-ANMH-Pgxaunme 50-325-40 MG Oral Tablet (Fioricet) TAKE ONE TABLET EVERY 6 HOURS NEEDED FOR PAIN 90 Tablet 1 Pregabalin 25 MG Oral Capsule (Lyrica) Take 1 Capsule by mouth in the morning and 1 Capsule before bedtime. 60 Capsule 5 Ondansetron 4 MG Oral Tablet Disintegrating (Zofran) PLACE 1 TABLET ON TONGUE EVERY 8 HOURS NEEDED FOR NAUSEA. 90 Tablet 1 Ferrous Sulfate 325 (65 Fe) MG Oral Tablet (Feosol) Take 1 Tablet by mouth daily at noon. 30 Tablet0 Ascorbic Acid 250 MG Oral Tablet Take 1 Tablet by mouth daily at noon. 30 Tablet 0 Vitamin E 400 UNIT Oral Capsule (Aquasol E) Take 1 Capsule by mouth in the morning. 30 Capsule 0 Sodium Bicarbonate 650 MG Oral Tablet Take 2 Tablets by mouth in the morning and 2 Tablets before bedtime. 120 Tablet 0 Cholestyramine Light 4 GM Oral Packet (Prevalite) Mix 1 packet in 4 to 6 ounces of your favorate NONCARBONATED beverage and stir vigorously and drink by mouth daily in the morning. 30 Packet 0 Ergocalciferol 1.25 MG (69602 UT) Oral Capsule (Vitamin D2(Drisdol)) Take 1 Capsule by mouth once aday on Monday, Monday, and Monday only. 12 Capsule 0 busPIRone HCl 5 MG Oral Tablet (Buspar) Take 1 Tablet by mouth in the morning and 1 Tablet at noon and 1 Tablet before bedtime. 90 Tablet 0 Lidocaine 4 % External Patch (Aspercreme) Place 1 Patch over 12 hours topically on the skin daily. 90 Patch 3 traMADol HCl 50 MG Oral Tablet (Ultram) Take 1 Tablet by mouth daily as needed for Pain, Severe. 30Tablet 0 Nitrofurantoin Monohyd Macro 100 MG Oral Capsule (Macrobid) Take 1 Capsule by mouth in the morning and 1 Capsule before bedtime. Do all this for 7 days. With food until gone. 14 Capsule 0 No current facility-administered medications for this visit. Diet: regular Nutrition Support: NONE Venous Access: PORT Enteral Access: NONE Review of Systems: -- Tolerating some PO LMP 04/05/2007 Physical Exam Severe Protein Calorie Malnutrition: Patricia was admitted to [facility] at the beginning of September for initiation of TPN. She had refeeding complications but we were able to stabilize her for discharge. Unfortunately, she decided not to go home on TPN at that time. She presented today to discuss restarting. Patient states she again agrees to TPN. She knows she will have to be admitted again due to refeeding complications. She agrees to 4 days per week TPN upon discharge from the hospital. She also agrees to monitoring her pump every 2 weeks for compliance. I will work on admission to [facility] again. She is requesting a Monday admission. Diarrhea: -- Stable (E61.0) Copper deficiency - Infusion PRN (D50.9) Iron deficiency anemia, unspecified iron deficiency anemia type - Follows by hematology Depression: "Stable". Continue Remeron --CDS Vic Wilkerson DO, FACN, FACP Director, [facility] for [facility] and Weight Blender/Braze Applicator, Department of Gastroenterology/Nutrition documented in this encounter Plan of Treatment Upcoming Encounters Date Type Department Care Team (Late st Contact Info) Description 11/08/2023 10:20 AM EDT Office Visit Family Medicine [address] [phone] Evelyn Andrews MD [address] [place] [address] [place] [address] 12/04/2023 3:45 PM EDT Office Visit Urology, [facility] [address] [facility] [place] [address] Christopher Almonte MD [address] [place] [address] [address] [place] [address] 04/29/2024 8:40 AM EST Office Visit Neurology [facility] [place] [address] [place] [address] Aris Mohr MD [address] [facility] [place] [address] 09/16/2024 11:20 AM EDT Office Visit Neurology [facility] [place] [address] [facility] [place] [address] EschJodee MD [address] [place] [address] Health Maintenance Due Date Last Done Comments [...] 024, 08/23/2022, 09/20/2021 CKD HGB USE SMARTSET 52309 10/08/202410/08, 10/06/2023, 10/05/2023, Additional history exists CKD PHOS USE SMARTSET 02666 10/09/202409/24, 10/09/2023, 10/08/2023, Additional history exists DTaP,Tdap,and [...] this encounter Medical Devices Implanted Type Area Carbon Setter Device Identifier Shelf Expiration Date Model / Serial / Lot Stent Axios 20mm - [id number] Implanted:Qty: 1 on 01/04/2021 by Leyda Garcia MD at OR [facility] N/A: Stomach [employer] : ENDOSCOPY 11/20/2021 [id number] / / [id number] documented as of this encounter Visit Diagnoses Diagnosis Severe protein-energy malnutrition (HCC)- Primary Other severe protein-calorie malnutrition Diarrhea due to malabsorption Depression, unspecified depression type documented in this encounter Advance Directives Documents on File Type Date Recorded Patient Investigation Division Lieutenant Expl anation POLST 01/03/2022 [place] OR [facility] FOR LIFE-SUSTAINING TREATMENT Latest Code Status [...] Name Relationship Healthcare Agent Relationship Communication Ariella Ververoluis Other - (no specific identity) Health Care Investigation Division Lieutenant (appointed verbally by patient or by statute hierarchy) Rowdy Hogue Sibling Health Care Investigation Division Lieutenant (appointed verbally by patient or by statute hierarchy) Care Teams Supervisor Smoke Control Relationship Specialty Start Date End Date Evelyn Andrews MD [address] [place] [address] [place] [address] PCP - General Family Medicine 05/04/18 documented as of this encounter
--- OUTSIDE RECORDS SUMMARY | 2023-12-07 18:28 | External Medical Summary | Summary of Care ---
Author Name Unknown Organization [facility] Address [address] [place] [address] Phone [phone] Care Team Providers Care Rnfa Name Role Phone Evelyn Jimenez MD Primary Care Prov ider Reason for Visit * Reason Comments eRx-Medication Refill Encounter Details Date Type Department Care Team (Late st Contact Info) Description 11/01/2023 Refill Family Medicine [address] [address] Evelyn Jimenez MD [address] [place] [address] [place] [address] Intractable vomiting with nausea Allergies Active Allergy Reactions Criticality Noted Date [...] MIGRAINE. 10 Tablet 5 09/18/19 24 Active Hehvrwtvye-FHCS-Lbz feine 50-325-40 MG Oral Tablet (Fioricet)Indicatio ns:Migraine variant TAKE ONE TABLET EVERY 6 HOURS NEEDED FOR PAIN 90 Tablet 1 09/19/19 24 Active Pregabalin 25 MG Oral Capsule (Lyrica)Indications :Copper deficiency myeloneuropathy (HCC),Hereditary and idiopathic peripheral neuropathy Take 1 Capsule by mouth in the morning and 1 Capsule before bedtime. 60 Capsule 5 09/19/19 24 Active Ferrous Sulfate 325 (65 [...] 10/10/19 24 024 Active Ergocalciferol 1.25 MG (37012 UT) Oral Capsule (Vitamin D2(Drisdol)) Take 1 [...] 30 Tablet 0 10/24/19 24 Active Nystatin 083723 UNIT/GM External Cream APPLY TO AFFECTED AREA TWICE A DAY 30 g 2 11/02/19 24 Active Ondansetron 4 MG Oral Tablet Disintegrating (Zofran)Indications :Intractable vomiting with nausea PLACE 1 TABLET ON TONGUE EVERY 8 HOURS NEEDED FOR NAUSEA. 90 Tablet 1 11/02/19 24 Active Ondansetron 4 MG Oral Tablet Disintegrating (Zofran)Indications :Intractable vomiting with nausea PLACE 1 TABLET ON TONGUE EVERY 8 HOURS NEEDED FOR NAUSEA. 90 Tablet 1 09/19/19 24 024 Discontinued documented as of this [...] [place] (myocardial infarction) 03/01/2023 03/01/2023 Atherosclerosis of [place] co ronary artery without angina pectoris 02/08/2022 [...] malnutrition 09/28/2018 09/23/2021 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/2021 SECURITY GUARD SUPERVISOR 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 02/06/2017 05/02/2018 SECURITY GUARD SUPERVISOR 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 02/06/2017 07/09/2019 Iron deficiency anemia 06/28/201109/20 Overview: ICD-10 update of inactive term Iron deficiency anemia 06/28/201109/20 Overview: ICD-10 update of inactive term Iron deficiency anemia pat paulino to inadequate dietary iron intake 09/26/2008 3 Secondary hyperparathyroidism, non-renal 03/27/2007 10/24/2023 Infected postoperative seroma 06/02/2003 09/20/2012 PANNICULITIS, UNSP SITE 05/14/20030 11/2022 documented as of this encounter (statuses as of 11/02/2023) Immunizations Name Administration Dates Next Due COVID-19 mRNA, LNP-s, No Pre serve, 2-Dose Series (Pfizer) 02/16/2021,11/25/2020,11/01/2020 COVID-19, MRNA-LNP, 23-24, P F, 30 MCG/0.3 mL, 12 YRS AND ABOVE, IM ([facility]-ComirnatHubba) 04/10/2023 Covid-19, Mrna, Lnp-s, Pf, B ivalent, 30 Mcg, IM, 12 yrs and above (Pfizer) 04/12/2022 Pneumococcal Conjugate Vacci ne, 20-valent ([id number]) 12/10/2021 Pneumococcal Polysaccharide PPV23 (Pneumovax) 07/21/2009 Seasonal [...] encounter Miscellaneous Notes * Telephone Encounter - Ara Flores RPh - 11/02/2023 3:53 PM EDTSigned Prescriptions: Disp Refills Ondansetron 4 MG Oral Tablet Disintegratin*90 Tab*1 Sig: PLACE 1TABLET ON TONGUE EVERY 8 HOURS NEEDED FOR NAUSEA.Authorizing Provider: EVELYN JIMENEZ User: ARA FLORES documented in this encounter Plan of Treatment Upcoming Encounters Date Type Department Care Team (Late st Contact Info) Description 11/03/2023 Hospital Encounter Admissions [address] [place] [address] Alen Larsen MD [address] [place] [address] [place] [address] 11/08/2023 10:20 AM EDT Office Visit Family Medicine [address] [phone] Evelyn Jimenez MD [address] [place] [address] [place] [address] 11/29/2023 5:00 PM EDT Telemedicine Psychiatry [facility] [place] [address] [place] [address] Alexis Serna MD [address] [place] [address] 12/04/2023 3:45 PM EDT Office Visit Urology, [facility] [address] [place] [address] Christopher Almonte MD 27 [facility] [address] [place] [address] 04/29/2024 8:40 AM EST Office Visit Neurology [facility] 200 [facility] [place] [address] Aris Mohr MD 200 [facility] [place] [address] 09/16/2024 11:20 AM EDT Office Visit Neurology [facility] [address] [place] [address] Jodee [place] MD [address] [place], [place] [phone] Health Maintenance Due Date Last Done Comments [...] 024, 08/23/2022, 09/20/2021 CKD HGB USE SMARTSET 48830 10/08/202410/08, 10/06/2023, 10/05/2023, Additional history exists CKD PHOS USE SMARTSET 70226 10/09/202409/24, 10/09/2023, 10/08/2023, Additional history exists DTaP,Tdap,and [...] this encounter Medical Devices Implanted Type Area Review Coordinator Device Identifier Shelf Expiration Date Model / Serial / Lot Stent Axios 20mm - [id number] Implanted:Qty: 1 on 01/04/2021 by Leyda Garcia MD at OR [facility] N/A: Stomach [employer] : ENDOSCOPY 11/20/2021 [id number] / / [id number] documented as of this encounter Visit Diagnoses Diagnosis Intractable vomiting with nausea documented in this encounter Advance Directives Documents on File Type Date Recorded Patient Associate Pathologist Expl anation POLST 01/03/2022 [place] OR [facility] FOR LIFE-SUSTAINING TREATMENT Latest Code Status on [...] Other - (no specific identity) Health Care Associate Pathologist (appointed verbally by patient or by statute hierarchy) Rowdy Hogue Sibling Health Care Associate Pathologist (appointed verbally by patient or by statute hierarchy) Care Teams Rnfa Relationship Specialty Start Date End Date Evelyn Jimenez MD [address] [place] [address] [place] [phone] PCP - General Family Medicine 05/04/18 documented as of this encounter
--- OUTSIDE RECORDS SUMMARY | 2023-12-07 18:28 | External Medical Summary | Summary of Care ---
Author Name Unknown Organization [facility] Address [address] [place] [address] Phone [phone] Care Team Providers Care High School Coordinator Name Role Phone Evelyn Andrews MD Primary Care Prov ider Reason for Visit * Reason Comments Follow Up 2 mo f/u Encounter Details Date Type Department Care Team (Latest Contact Info) Description 10/24/2023 2:00 PM EDT Office Visit Family Medicine [address] [phone] Evelyn Andrews MD [address] [place] [address] [place] [address] Severe protein-energy malnutrition (HCC)*; Intestinal postoperative nonabsorption; Other idiopathic scoliosis, thoracic region; Chronic midline thoracic back pain; Acute cystitis with hematuria Allergies Active Allergy Reactions Criticality Noted Date Comments Amoxicillin Edema airway High 01/22/2003 Oxybutynin 03/25/2023 Mouth ulcers Sulfa Antibiotics Edema airway High 08/15/2006 documented as of this encounter (statuses as of 10/27/2023) Medications Medication Sig Dispensed Refills Start Date End Date Status CYANOCOBALAMIN 1000 MCG/ML IJ SOLN one injection monthly 0 Active CALCITRIOL 0.25 MCG PO CAPS 1 CAPSULE BY MOUTH MONDAYS/Monday/Fridays04/10/20 14 Active [facility] ACETAMINOP[facility]EN [facility] 500 [...] Cough. 120 mL 0 06/28/19 24 Active Nystatin 967759 UNIT/GM External Cream APPLY TO AFFECTED AREA TWICE A DAY 30 g 2 06/30/19 24 Active OLANZapine 5 MG Oral Tablet [...] MIGRAINE. 10 Tablet 5 09/18/19 24 Active Ucgobhaeby-KYDQ-Ywi feine 50-325-40 MG Oral Tablet (Fioricet)Indicatio ns:Migraine [...] 10/10/19 24 024 Active Ergocalciferol 1.25 MG (20727 UT) Oral Capsule (Vitamin D2(Drisdol)) Take 1 [...] Severe. 30 Tablet 0 10/24/19 24 Active Nitrofurantoin Monohyd Macro 100 MG Oral Capsule (Macrobid)Indicatio ns:Acute cystitis with hematuria Take 1 Capsule by mouth in the morning and 1 Capsule before bedtime. Do all this for 7 days. With food until gone. 14 Capsule 0 10/24/19 24 024 Active levoFLOXacin 250 MG Oral Tablet Take 1 Tablet by mouth in the morning for 7 days. until gone.. 7 Tablet 0 10/19/19 24 024 Discontinued Vancomycin HCl 125 MG Oral Capsule (Vancocin)Indicatio ns:Urinary tract infection without hematuria, site unspecified Take 1 Capsule by mouth every 6 hours for 7 days. For 7 days 28 Capsule 0 10/20/19 24 024 Discontinued documented as of this encounter (statuses as of 10/27/2023) Active Problems Problem Noted Date Diagnosed Date [...] as of this encounter (statuses as of 10/27/2023) Resolved Problems Problem Noted Date Diagnosed Date Resolved Date Old [place] (myocardial infarction) 03/01/2023 03/01/2023 Atherosclerosis of [place] co ronary artery without angina pectoris 02/08/2022 [...] malnutrition 09/28/2018 09/23/2021 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/2021 MID LEVEL JAVA DEVELOPER 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 02/06/2017 05/02/2018 MID LEVEL JAVA DEVELOPER 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 02/06/2017 07/09/2019 Iron deficiency anemia 06/28/201109/20 Overview: ICD-10 update of inactive term Iron deficiency anemia 06/28/201109/20 Overview: ICD-10 update of inactive term Iron deficiency anemia pat paulino to inadequate dietary iron intake 09/26/2008 3 Secondary hyperparathyroidism, non-renal 03/27/2007 10/24/2023 Infected postoperative seroma 06/02/2003 09/20/2012 PANNICULITIS, UNSP SITE 05/14/200311/2022 documented as of this encounter (statuses as of 10/27/2023) Immunizations Name Administration Dates Next Due COVID-19 mRNA, LNP-s, No Pre serve, 2-Dose Series (MyLuvs) 02/16/2021,11/25/2020,11/01/2020 COVID-19, MRNA-LNP, 23-24, P F, 30 MCG/0.3 mL, 12 YRS AND ABOVE, IM ([employer]-Comirnaty) 04/10/2023 Covid-19, Mrna, Lnp-s, Pf, B ivalent, 30 Mcg, IM, 12 yrs and above (Pfizer) 04/12/2022 Pneumococcal Conjugate Vacci ne, 20-valent ([id number]) 12/10/2021 Pneumococcal Polysaccharide PPV23 (Pneumovax) 07/21/2009 Seasonal Influenza, PF, 6 M & above, IM , (FluLaval or Fluzone) 03/01/2023,03/08/2022,03/18/2021,05/16,05/02/2018 Seasonal Influenza, Split, I IV3, With Preserve, Inj 03/23/2012,05/23/2007 TD - Tetanus/Diptheria (ADULT) 04/06/2002 Zoster Vaccine Recombinant (Shingrix) 04/27/2020 ,01/24/2020 documented as of this encounter Social History Tobacco Use Types Packs/Day Years Used Date Smoking Tobacco: Every Day Cigarettes 0.5 30 Smokeless Tobacco: Never Tobacco Cessation:Ready to Q uit: Not Asked; Counseling Given: Not Answered Alcohol Use Standard Drinks/Week Comments Not Currently [...] Sign Reading Time Taken Comments Blood Pressure 128/66 10/24/2023 1:59 PM EDT Pulse 77 10/24/2023 1:59 PM EDT Temperature 35.8 C (96.5 F) 10/24/2023 1:59 PM ED T Respiratory Rate - - Oxygen Saturation 99% 10/24/2023 1:59 PM EDT Inhaled Oxygen Concentration - - Weight 37.6 kg (83 lb) 10/24/2023 1:59 PM EDT Height - - Body Mass Index 16.76 10/17/2023 3:25 PM EDT documented in this encounter Functional [...] as of this encounter Progress Notes * Obdulio Forbes, Evelyn Nugent MD - 10/24/2023 2:41 PM EDT Subjective Chandrika Hogue is a 58 year old female. Chief Complaint Patient presents with Follow Up 2 mo f/u HPI: Here today for routine chronic disease management and preventive care. Malnutrition. After a 3 week hospitalization to restart TPN, she ultimately decided NOT to continueTPN at home. Since discharge she is taking PO but has lost weight - she is down 9 pounds since discharge 2 weeks ago. Having more fatigue and more back pain. Mental health. Has not yet reached out to Andriy Flaherty ( therapist); but intends to. Asking for her phone number. UTI Enterococcus with multidrug resistance. Intermediate sensitivity to nitrofurantoin; sensitive to vancomycin. 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, G63, 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 Encounter for adjustment and management of vascular access device Z45.2 Gastrostomy malfunction ([facility]) K94.23 Failure to thrive in adult R62.7 On total parenteral nutrition (TPN) Z78.9 MDD (major depressive disorder), recurrent episode, moderate (HCC) F33.1 Bipolar disorder (HCC) F31.9 Incontinence of feces with fecal urgency R15.9, R15.2 MDD (major depressive disorder), recurrent severe, 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 30Tablet 0 Nitrofurantoin Monohyd Macro 100 MG Oral Capsule (Macrobid) Take 1 Capsule by mouth in the morning and 1 Capsule before bedtime. Do all this for 7 days. With food until gone. 14 Capsule 0 CYANOCOBALAMIN 1000 MCG/ML IJ SOLN one injection [...] needed for Cough. 120 mL 0 Nystatin 490571 UNIT/GM External Cream APPLY TO AFFECTED AREA [...] DAILY NEEDED FOR MIGRAINE. 10 Tablet 5 Iytxvncyhi-PZWD-Dnfvlsnm 50-325-40 MG Oral Tablet (Fioricet) TAKE ONE [...] morning. 30 Packet 0 Ergocalciferol 1.25 MG (13729 UT) Oral Capsule (Vitamin D2(Drisdol)) Take 1 [...] on the skin daily. 90 Patch 3 No current facility-administered medications for this visit. Review of patient's allergies indicates: Allergen Reactions Amoxicillin Edema airway Sulfa Antibiotics Edema airway Oxybutynin Mouth ulcers Objective BP 128/66 | Pulse 77 | Temp 35.8 C (96.5 F) (Tympanic) | Wt 37.6 kg (83 lb) | LMP 04/05/2007 | SpO2 99% | BMI 16.76 kg/m | BSA 1.25 m Awake, alert, cachectic ASSESSMENT/PLAN: Severe protein-energy malnutrition (HCC) (Primary) Intestinal postoperative nonabsorption Other idiopathic scoliosis, thoracic region - traMADol HCl 50 MG Oral Tablet (Ultram); Take 1 Tablet by mouth daily as needed for Pain, Severe. Chronic midline thoracic back pain - traMADol HCl 50 MG Oral Tablet (Ultram); Take 1 Tablet by mouth daily as needed for Pain, Severe. Acute cystitis with hematuria - Nitrofurantoin Monohyd Macro 100 MG Oral Capsule (Macrobid); Take 1 Capsule by mouth in the morning and 1 Capsule before bedtime. Do all this for 7 days. With food until gone. Back pain does not seem to correlate with UTI but rather related to her severe scoliosis. OK to restart tramadol for this. Reinforced recommendation for her to connect with therapist; I have recommended Andriy Flaherty at [facility] and given Patricia the contact information. Patricia states she is reconsidering at home TPN 3-4 days per week. Understands she would have to be re-hospitalized to restart TPN, and she plans to discuss this with Dr Wilkerson. I also encouraged her todiscuss her goals of care with MH therapist. Follow up closely. Follow Up: Return in about 4 weeks (around 11/21/2023) for Return with Physician, Clinic Visit. | For: Return with Physician, Clinic Visit | Check-out note: Schedule follow up with Psychiatry Dr Daphne Mobley MD documented in this encounter Nursing Notes * Serene Vargas, RAYNA - 10/24/2023 1:57 PM EDT Chief Complaint Patient presents with Follow Up 2 mo f/u Took 1 levofloxacin and when vanco prescribed then she stopped Levo and now is taking vanco On TPN break she will see on 10/31/23 Wt today 83 LBS The patient has been properly identified by confirmation of name and date of . documented in this encounter Plan of Treatment Upcoming Encounters Date Type Department Care Team (Late st Contact Info) Description 10/30/2023 5:00 PM EDT Telemedicine Psychiatry, [facility] [address] [place], [place] [phone] Alexis Serna MD [address] [place] [address] 10/31/2023 10:40 AM EDT Telemedicine Nutrition & Weight Management, [facility] [address] [place], [place] [phone] Vic Wilkerson DO [address] [place] [address] 11/08/2023 10:20 AM EDT Office Visit Family Medicine [address] [phone] Evelyn Andrews MD [address] [place] [address] [place] [address] 12/04/2023 3:45 PM EDT Office Visit Urology, [facility] [address] [place] [address] Christopher Almonte MD [address] [address] 04/29/2024 8:40 AM EST Office Visit Neurology [facility] [address] [place] [address] Aris Mohr MD [address] [facility] [place] [address] 09/16/2024 11:20 AM EDT Office Visit Neurology [facility] [address] [place] [address] Jodee [place] MD [address] [place], [place] [phone] Health Maintenance Due Date Last Done Comments [...] 024, 08/23/2022, 09/20/2021 CKD HGB USE SMARTSET 81656 10/08/202410/08, 10/06/2023, 10/05/2023, Additional history exists CKD PHOS USE SMARTSET 63345 10/09/202409/24, 10/09/2023, 10/08/2023, Additional history exists DTaP,Tdap,and [...] this encounter Medical Devices Implanted Type Area Education Dean Device Identifier Shelf Expiration Date Model / Serial / Lot Stent Axios 20mm - [id number] Implanted:Qty: 1 on 01/04/2021 by Leyda Garcia MD at OR [facility] N/A: Stomach [employer] : ENDOSCOPY 11/20/2021 [id number] / / [id number] documented as of this encounter Visit Diagnoses Diagnosis Severe protein-energy malnutrition (HCC)- Primary Other severe protein-calorie malnutrition Intestinal postoperative nonabsorption Other and unspecified postsurgical nonabsorption Other idiopathic scoliosis, thoracic region Chronic midline thoracic back pain Acute cystitis with hematuria Acute cystitis documented in this encounter Advance Directives Documents on File Type Date Recorded Patient Budget Specialist Expl anation POLST 01/03/2022 [place] OR [facility] FOR LIFE-SUSTAINING TREATMENT [...] Other - (no specific identity) Health Care Budget Specialist (appointed verbally by patient or by statute hierarchy) Rowdy Hogue Sibling Health Care Budget Specialist (appointed verbally by patient or by statute hierarchy) Care Teams High School Coordinator Relationship Specialty Start Date End Date Evelyn Andrews MD [address] [place] [address] [place] [address] PCP - General Family Medicine 05/04/18 documented as of this encounter"
--- OUTSIDE RECORDS SUMMARY | 2023-12-07 18:28 | External Medical Summary | Summary of Care ---
Author Name Unknown Organization [facility] Address [address] [place] [address] Phone [phone] Care Team Providers Care Tools Developer Name Role Phone Evelyn Andrews MD Primary Care Prov ider Reason for Visit * Reason Comments No Show Encounter Details Date Type Department Care Team (Late st Contact Info) Description 10/30/2023 5:00 PM EDT Telemedicine Psychiatry, [place] [address] [place] [address] Alexis Serna MD [address] [place] [address] No Show for psych appt* Allergies Active Allergy Reactions Criticality Noted Date Comments Amoxicillin Edema airway High 01/22/2003 Oxybutynin 03/25/2023 Mouth ulcers Sulfa Antibiotics Edema airway High 08/15/2006 documented as of this encounter (statuses as of 10/30/2023) Medications Medication Sig Dispensed Refills Start Date [...] Cough. 120 mL 0 06/28/2023 Active Nystatin 983869 UNIT/GM External Cream APPLY TO AFFECTED AREA [...] FOR MIGRAINE. 10 Tablet 5 09/18/2023 Active Ujcqiczvej-TIPR-Tazb eine 50-325-40 MG Oral Tablet (Fioricet)Indication s:Migraine [...] 10/10/2023 11/09/19 24 Active Ergocalciferol 1.25 MG (28257 UT) Oral Capsule (Vitamin D2(Drisdol)) Take 1 [...] as of this encounter (statuses as of 10/30/2023) Active Problems Problem Noted Date Diagnosed Date [...] as of this encounter (statuses as of 10/30/2023) Resolved Problems Problem Noted Date Diagnosed Date Resolved Date Old [place] (myocardial infarction) 03/01/2023 03/01/2023 Atherosclerosis of [place] co ronary artery without angina pectoris 02/08/2022 [...] malnutrition 09/28/2018 09/23/2021 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/2021 [facility] 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 02/06/2017 05/02/2018 [facility] 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 02/06/2017 07/09/2019 Iron deficiency anemia 06/28/201109/20 Overview: ICD-10 update of inactive term Iron deficiency anemia 06/28/201109/20 Overview: ICD-10 update of inactive term Iron deficiency anemia pat paulino to inadequate dietary iron intake 09/26/2008 3 Secondary hyperparathyroidism, non-renal 03/27/2007 10/24/2023 Infected postoperative seroma 06/02/2003 09/20/2012 PANNICULITIS, UNS SITE 05/14/2003 09/0 11/2022 documented as of this encounter (statuses as of 10/30/2023) Immunizations Name Administration Dates Next Due COVID-19 mRNA, LNP-s, No Pre serve, 2-Dose Series (Pfizer) 02/16/2021,11/25/2020,11/01/2020 COVID-19, MRNA-LNP, 23-24, P F, 30 MCG/0.3 mL, 12 YRS AND ABOVE, IM (PFIZER-Comirnaty) 04/10/2023 Covid-19, Mrna, Lnp-s, Pf, B ivalent, 30 Mcg, IM, 12 yrs and above (Pfizer) 04/12/2022 Pneumococcal Conjugate Vacci ne, 20-valent ([id number]) 12/10/2021 Pneumococcal Polysaccharide PPV23 (Pneumovax) 07/21/2009 Seasonal [...] Progress Notes * Alexis Serna MD - 10/30/2023 5:53 PM EDT Patient failed to keep appointment. documented in this encounter Plan of Treatment Upcoming Encounters Date Type Department Care Team (Late st Contact Info) Description 10/31/2023 2:00 PM EDT Telemedicine Nutrition & Weight Management, [place] [address] [place] [address] Vic Wilkerson DO [address] [place] [address] 11/08/2023 10:20 AM EDT Office Visit Family Medicine [address] [place] [phone] Evelyn Andrews MD [address] [place] [address] [place] [address] 12/04/2023 3:45 PM EDT Office Visit Urology, [facility] [address] [place] [address] Christopher Almonte MD 27 [facility] [place] [address] [place] [address] 04/29/2024 8:40 AM EST Office Visit Neu[facility] [place] [address] Aris Mohr MD [address] [place] [address] 09/16/2024 11:20 AM EDT Office Visit Neurology [facility] [place] [address] Jodee [place] MD [address] [place], [place] [phone] Health Maintenance Due Date Last Done Comments [...] 024, 08/23/2022, 09/20/2021 CKD HGB USE SMARTSET 43891 10/08/202410/08, 10/06/2023, 10/05/2023, Additional history exists CKD PHOS USE SMARTSET 78369 10/09/202409/24, 10/09/2023, 10/08/2023, Additional history exists DTaP,Tdap,and [...] this encounter Medical Devices Implanted Type Area Administrative Project Coordinator Device Identifier Shelf Expiration Date Model / Serial / Lot Stent Axios 20mm - [id number] Implanted:Qty: 1 on 01/04/2021 by Leyda Garcia MD at OR [facility] N/A: Stomach [employer] : ENDOSCOPY 11/20/2021 [id number] / / [id number] documented as of this encounter Visit Diagnoses Diagnosis No Show for psych appt- Primary documented in this encounter Advance Directives Documents on File Type Date Recorded Patient Network Technology Instructor Expl anation POLST 01/03/2022 [place] OR [facility] FOR LIFE-SUSTAINING TREATMENT Latest Code Status [...] Other - (no specific identity) Health Care Network Technology Instructor (appointed verbally by patient or by statute hierarchy) Rowdy Kraus Health Care Network Technology Instructor (appointed verbally by patient or by statute hierarchy) Care Teams Tools Developer Relationship Specialty Start Date End Date Evelyn Andrews MD [address] [place] [address] [place] [address] PCP - General Family Medicine 05/04/18 documented as of this encounter
--- OUTSIDE RECORDS SUMMARY | 2023-12-07 18:28 | External Medical Summary | Summary of Care ---
Author Name Unknown Organization [facility] Address [address] [place] [address] Phone [phone] Care Team Providers Care Aluminum Boats Assembler Name Role Phone Evelyn Andrews MD Primary Care Prov ider Reason for Visit * Reason Onset Date Comments case management 10/11/2023 Advice 10/11/2023 Encounter Details Date Type Department Care Team (Late st Contact Info) Description 10/11/2023 Telephone Care Coordination and Integration [address] [place] [address] Shahla Pan RN [address] [address], [place] [phone] case management; Advice Allergies Active Allergy Reactions Criticality Noted Date [...] 1 CAPSULE BY MOUTH MONDAYS/WEDNESDAYS /FRIDAYS 5 4 Active [facility] ACETAMINOPHEN EX [facility] [...] X WEEKLY 10 Tablet 5 3 Active Mirtazapine 45 MG Oral Tablet (Remeron)Indications :Recurrent major depressive disorder, in partial remission (HCC) Take 1 Tablet by mouth at bedtime. 30 Tablet 3 3 Active ALPRAZolam 0.25 MG Oral Tablet (xaNAX)Indications:A nxiety Take 1 Tablet by mouth at bedtime as needed for Sleep. 30 Tablet 3 3 Active guaiFENesin-Codeine 100-10 MG/5ML Oral Syrup (Robitussin AC)Indications:COVID -19 Take 5 mL by mouth every 4 hours as needed for Cough. 120 mL 0 4 Active Nystatin 812537 UNIT/GM External Cream APPLY TO AFFECTED AREA TWICE A DAY 30 g 2 4 Active OLANZapine 5 MG Oral Tablet [...] FOR MIGRAINE. 10 Tablet 5 4 Active Rfzwagmiiy-RYIN-Ypyn eine 50-325-40 MG Oral Tablet (Fioricet)Indication s:Migraine variant TAKE ONE TABLET EVERY 6 HOURS NEEDED FOR PAIN 90 Tablet 1 4 Active Pregabalin 25 MG Oral Capsule (Lyrica)Indications: Copper deficiency myeloneuropathy (HCC),Hereditary and idiopathic peripheral neuropathy Take 1 Capsule by mouth in the morning and 1 Capsule before bedtime. 60 Capsule 5 4 Active Ondansetron 4 MG Oral Tablet Disintegrating (Zofran)Indications: Intractable vomiting with nausea PLACE 1 TABLET ON TONGUE EVERY 8 HOURS NEEDED FOR NAUSEA. 90 Tablet 1 4 Active Ferrous Sulfate 325 (65 Fe) [...] 4 11/09/19 24 Active Ergocalciferol 1.25 MG (49832 UT) Oral Capsule (Vitamin D2(Drisdol)) Take 1 Capsule by mouth once a day on Monday, Monday, and Monday only. 12 Capsule 0 4 11/09/19 24 Active busPIRone HCl 5 MG Oral Tablet (Buspar) Take 1 Tablet by mouth in the morning and 1 Tablet at noon and 1 Tablet before bedtime. 90 Tablet 0 04/16/202 4 11/09/19 24 Active oxyCODONE HCl 5 MG Oral Tablet (Oxy IR) Take 1 Tablet by mouth every 6 hours as needed for Pain, Breakthrough or Pain, Severe for up to 3 days. 12 Tablet 0 4 10/13/19 24 documented as of this encounter (statuses as [...] SC (myocardial infarction) 03/01/2023 03/01/2023 Atherosclerosis of [place] co ronary artery without angina pectoris 02/08/2022 [...] malnutrition 09/28/2018 09/23/2021 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/2021 DEPLOYMENT SPECIALIST 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 02/06/2017 05/02/2018 DEPLOYMENT SPECIALIST 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 02/06/2017 07/09/2019 Iron deficiency anemia [...] mRNA, LNP-s, No Pre serve, 2-Dose Series ([employer]) 02/16/2021,11/25/2020,11/01/2020 COVID-19, MRNA-LNP, 23-24, P F, 30 MCG/0.3 mL, 12 YRS AND ABOVE, IM (PFIZER-Comirnaty) 04/10/2023 Covid-19, Mrna, Lnp-s, Pf, B ivalent, 30 Mcg, IM, 12 yrs and above (Pfizer) 04/12/2022 Pneumococcal Conjugate Vacci ne, 20-valent ([id number]) 12/10/2021 Pneumococcal Polysaccharide PPV23 (Pneumovax) 07/21/2009 Seasonal [...] encounter Miscellaneous Notes * Telephone Encounter - Cary Sheppard RN - 10/31/2023 9:41 AM EDT To better serve your patient's needs, order [id number] for Chandrika Hogue (1965) is now being fulfilled by [facility]. If you need assistance with this order, please call . * Telephone Encounter - Cary Sheppard RN - 10/17/2023 1:36 PM EDT Order for Rollator [id number] for Chandrika Hogue (1965) is being fulfilled by [facility]. If you need assistance with this order, please call . * Telephone Encounter - Christopher Almotne MD - 10/16/2023 4:35 PM EDT Patient can be placed on standby list or offered sooner appointment in [place] with physician assistant strength coach. Thanks, HM * Telephone Encounter - Shahla Pan RN - 10/16/2023 4:16 PM EDT Called patient back, informed her of the orders placed for a urine specimen. She lives in [place], she could not be here before the lab closes. She has an appointment with gastroenterology tomorrow, she will do the urine specimen tomorrow whenat that clinic. Asked if Li sent the script in for the lidocaine patches? Informed her NO. States at the [employer] store, it is over $4 for 1-2 patches. If she gets them from the mail order pharmacy, they are cheap to free. Asking please to have the lidocaine patches sent to the mail order pharmacy, plus they will deliverto her. Asking me to send message to her PCP, "Evelyn". CM will do. CM also to let PCP know she is calling in early every morning, asking for an appointment. Wants to be see sooner than mid October. She will keep trying, please keep her in mind ......... She says 'thank you'. * Telephone Encounter - Li Cano PA-C - 10/16/2023 2:37 PM EDT She can came in and give a urine. Orders in. * Telephone Encounter - Shahla Pan RN - 10/16/2023 12:20 PM EDT Patient complaining of : -"so much pressure on my bladder" -bloated -"peeing constantly" -"horrible pain" -feels like her bladder is not emptying Asking if her appointment with Dr Almonte can be sooner than December 03? Please. Please advise or call patient. Thank you. * Telephone Encounter - Shahla Pan RN - 10/16/2023 12:16 PM EDT Spoke with patient. Asking if script for the lidocaine patches could please be sent to the mail order pharmacy - they are much less expensive that way, and they will deliver them to her. Her pain has been "horrible". Rated 9-12, on a scale of 0-10. "I have so much pressure on my bladder." Patient doesn't think her bladder is emptying. Urinary frequency. "I am peeing constantly." "I am so bloated." Has appointment with Dr Yadav tomorrow - plans to try to keep. Would like to have a sooner appointment with Dr Almonte. CM will send message to urology. Patient's smoke detector in beeping in the background. Reports it just needs a new battery, it is on the ceiling, and she cannot change it herself. * Telephone Encounter - Shahla Pan RN - 10/16/2023 12:10 PM EDT Yes, will do. * Telephone Encounter - Cary Sheppard RN - 10/16/2023 10:54 AM EDT I will send Rollator thru [employer]. Can can you talk to her about Lidocaine OTC patches, when you talk with her? * Telephone Encounter - Li Cano PA-C - 10/12/2023 7:59 AM EDT Rollator script done. She can try lidocaine patches over the counter. * Telephone Encounter - Shahla Pan RN - 10/11/2023 4:15 PM EDT Li, Patient reports her appointment went so fast she forgot to ask you for 2 things: 1) she is asking for an order for a "lightweight" rollator, to be sent to [facility]. Needs elton lightweight due to her size/weight. 2) asking for a script for the lidocaine patches for her right shoulder pain. States they helped [facility]. Thank you. documented in this encounter Plan of Treatment Upcoming Encounters Date Type Department Care Team (Late st Contact Info) Description 10/31/2023 2:00 PM EDT Telemedicine Nutrition & Weight Management, [place] [address] [place] [address] Vic Wilkerson DO [address], [place] [phone] 11/08/2023 10:20 AM EDT Office Visit Family Medicine [address] [phone] Evelyn Andrews MD [address] [place] [address] [place] [address] 12/04/2023 3:45 PM EDT Office Visit Urology, [facility] [address] [place] [address] Christopher Almonte MD [address] [facility] [address] [place] [address] 04/29/2024 8:40 AM EST Office Visit Neurology [facility] [address] [facility] [place] [address] Aris Mohr MD [address] [facility] [place] [address] 09/16/2024 11:20 AM EDT Office Visit Neurology [facility] [address] [place] [address] Jodee Austin MD [address], [place] [phone] Health Maintenance Due Date Last Done Comments [...] 024, 08/23/2022, 09/20/2021 CKD HGB USE SMARTSET 11948 10/08/202410/08, 10/06/2023, 10/05/2023, Additional history exists CKD PHOS USE SMARTSET 57241 10/09/202409/24, 10/09/2023, 10/08/2023, Additional history exists DTaP,Tdap,and [...] this encounter Medical Devices Implanted Type Area Memorial Marker Designer Device Identifier Shelf Expiration Date Model / Serial / Lot Stent Axios 20mm - [id number] Implanted:Qty: 1 on 01/04/2021 by Leyda Garcia MD at OR [facility] N/A: Stomach [employer] : ENDOSCOPY 11/20/2021 [id number] / / [id number] documented as of this encounter Results * (ABNORMAL) CULTURE, URINE, QUANTITATIVE (10/17/2023 3:15 PM EDT) Culture Growth >100,000 colonies/mL Enterococcus species(A) MICROBROTH DILUTIONS 10/20/2023 10:58 AM EDT LABORATORY [facility] Urine Urine specimen obtained by clean catch procedure / Unknown Non-blood Collection / Unknown 10/17/2023 3:15 PM EDT 10/17/2023 3:15 PM EDT Narrative LABORATORY [facility] - 10/20/2023 10:58 AM EDT <10,000 colonies/ml mixed normal ravindra Organism Antibiotic Method Susceptibility Enterococcus species Ampicillin MICROBROTH DILUTIONS 16: Resistant Enterococcus species Nitrofurantoin MICROBROTH DILUTIO NS 64: Intermediate Enterococcus species Tetracycline MICROBROTH DILUTIONS >=16: Resistant Enterococcus species Vancomycin MICROBROTH DILUTIONS <=0.5: Susceptible Li Cano PA-C LAB MICRO - GENERA L ORDERABLES Performing Organization Address City/State/[facility] Co de Phone Number LABORATORY [facility] [address] [place] [address] * (ABNORMAL) URINALYSIS, REFLEX TO MICROSCOPIC (10/17/2023 3:15 PM EDT) Color, Urine Yellow 10/17/2023 3:45 PM EDT LABORATORY [place] [facility] Clarity, Urine Slightly Cloudy 10/17/2023 3:45 PM EDT LABORATORY [place] [facility] Glucose, Urine Negative mg/dL 10/17/2023 3:45 PM EDT LABORATORY [place] [facility] Bilirubin, Urine Negative 10/17/2023 3:45 PM EDT LABORATORY [place] [facility] Ketone, Urine Negative mg/dL 10/17/2023 3:45 PM EDT LABORATORY [place] [facility] Specific [place], Urine 1.025 1.003 - 1.030 10/17/2023 3:45 PM EDT LABORATORY [place] [facility] Blood, Urine Trace-intact 10/17/2023 3:45 PM EDT LABORATORY [place] [facility] pH, Urine 5.5 5.0 - 7.5 Units 10/17/2023 3:45 PM EDT LABORATORY [place] [facility] Protein, Urine Trace mg/dL 10/17/2023 3:45 PM EDT LABORATORY [place] [facility] Urobilinogen, Urine 0.2 mg/dL 10/17/2023 3:45 PM EDT LABORATORY [place] [facility] Nitrite, Urine Negative Negative 10/17/2023 3:45 PM EDT LABORATORY [place] [facility] Esterase, Urine Trace(A) Negative 10/17/2023 3:45 PM EDT [facility] [place] [facility]10 RBC, Urine 6-9(A) 0 - 2 /HPF 10/17/2023 3:45 PM EDT LABORATORY [place] [facility] WBC, Urine 20-29(A) 0 - 2 /HPF 10/17/2023 3:45 PM EDT LABORATORY [place] [facility] Bacteria, Urine 101-150(A) 0 - 25 /HPF 10/17/2023 3:45 PM EDT [facility] [place] [facility] 57-10 Squamous Epithelial Cells, Urine Many(A) None /HPF 10/17/2023 3:45 PM EDT LABORATORY [place] [facility] Urine Urine specimen obtained by clean catch procedure / Unknown Non-blood Collection / Unknown 10/17/2023 3:15 PM EDT 10/17/2023 3:15 PM EDT Li Cano PA-C LAB URINE ORDERABL ES LABORATORY [place] [facility] [address] [facility] [place] [address] documented in this encounter Visit Diagnoses Diagnosis Severe protein-energy malnutrition (HCC)- Primary Other severe protein-calorie malnutrition Dysuria documented in this encounter Advance Directives Documents on File Type Date Recorded Patient Coding Support Specialist Catherine irby POL 01/03/2022 [place] [facility] FOR LIFE-SUSTAINING TREATMENT Latest Code Status [...] Other - (no specific identity) Health Care Coding Support Specialist (appointed verbally by patient or by statute hierarchy) Rowdy Hogue Sibling Health Care Coding Support Specialist (appointed verbally by patient or by statute hierarchy) Care Teams Aluminum Boats Assembler Relationship Specialty Start Date End Date Evelyn Andrews MD [address] [place] [address] [place] [address] PCP - General Family Medicine 05/04/18 documented as of this encounter
--- OUTSIDE RECORDS SUMMARY | 2023-12-07 18:28 | External Medical Summary ---
Author Name Unknown Address Unknown Organization K1[facility] [address] [place] [address] Laboratory Report Ordering Provider Test Date Status MARTY MOSER 11/03/2023 18:10:00 Final Observation Date Value Abnormality Reference (Units ) Status Phosphate 11/03/2023 18:10:00 5.3 Above high normal 2. 5-4.8 (mg/dL) Final Performing Location [facility] [address] [place] [address]
--- OUTSIDE RECORDS SUMMARY | 2023-12-07 18:28 | External Medical Summary ---
Author Name Unknown Address Unknown Organization [facility] [address] [place] [address] Laboratory Report Ordering Provider Test Date Status MARTY MOSER 11/03/2023 18:10:00 Final Observation Date Value Abnormality Reference (Units ) Status Magnesium 11/03/2023 18:10:00 2.0 1.5-2.6 (m g/dL) Final Performing Location [facility] [address] [place] [address]
--- OUTSIDE RECORDS SUMMARY | 2023-12-07 18:29 | External Medical Summary | Summary of Care ---
Author Name Unknown Organization [facility] Address [address] [place] [address] Phone [phone] Care Team Providers Care Head Porter Baggage Name Role Phone Evelyn Andrews MD Primary Care Prov ider Reason for Visit * Reason Onset Date Comments Appointment 10/23/2023 Encounter Details Date Type Department Care Team (Late st Contact Info) Description 10/23/[address] [phone] Evelyn Andrews MD [address] [place], [place] [address] [address] Appointment Allergies Active Allergy Reactions Criticality Noted Date Comments Amoxicillin Edema airway High 01/22/2003 Oxybutynin 03/25/2023 Mouth ulcers Sulfa Antibiotics Edema airway High 08/15/2006 documented as of this encounter (statuses as of 10/24/2023) Medications Medication Sig Dispensed Refills Start Date [...] Cough. 120 mL 0 06/28/2023 Active Nystatin 916497 UNIT/GM External Cream APPLY TO AFFECTED AREA [...] FOR MIGRAINE. 10 Tablet 5 09/18/2023 Active Umazpdjkuc-XINM-Gobj eine 50-325-40 MG Oral Tablet (Fioricet)Indication s:Migraine [...] 10/10/2023 11/09/19 24 Active Ergocalciferol 1.25 MG (90073 UT) Oral Capsule (Vitamin D2(Drisdol)) Take 1 Capsule by mouth once a day on Monday, Monday, and Monday only. 12 Capsule 0 10/10/2023 11/09/19 24 Active busPIRone HCl 5 MG Oral Tablet (Buspar) Take 1 Tablet by mouth in the morning and 1 Tablet at noon and 1 Tablet before bedtime. 90 Tablet 0 10/10/2023 11/09/19 Active Lidocaine 4 % External Patch (Aspercreme)Indicati ons:Myelopathy (HCC) Place 1 Patch over 12 hours topically on the skin daily. 90 Patch 3 10/16/2023 Active levoFLOXacin 250 MG Oral Tablet Take 1 Tablet by mouth in the morning for 7 days. until gone.. 7 Tablet 0 10/19/2023 10/26/19 24 Active Additional Information Patient not taking.Reported on 10/23/2023 Vancomycin HCl 125 MG Oral Capsule (Vancocin)Indication s:Urinary tract infection without hematuria, site unspecified Take 1 Capsule by mouth every 6 hours for 7 days. For 7 days 28 Capsule 0 10/20/2023 10/27/19 24 Active documented as of this encounter (statuses as of 10/24/2023) Active Problems Problem Noted Date Diagnosed Date [...] thrive in adult 12/08/2022 Gastrostomy malfunction 07/08/2022 Demyelinating disease of central nervous system 08/17/2021 Encounter for adjustment and management of vascular [...] 07/17/2017 Intestinal postoperative nonabsorption 1 Anemia 09/26/2008 HYPERPARATHYROIDISM SECONDARY, NON-RENAL 007 ADVANCE DIRECTIVE INFORMATION 11/15/2006 Overview: No, Advance Directive brochure offered , patient declined. IRON DEF ANEMIA DIETARY 06/27/2006 documented as of this encounter (statuses as of 10/24/2023) Resolved Problems Problem Noted Date Diagnosed Date Resolved Date Old SD (myocardial infarction) 03/01/2023 03/01/2023 Atherosclerosis of [place] co ronary artery without angina pectoris 02/08/2022 03/08/2022 Hyperparathyroidism 10/15/2021 03/01/20 23 Decreased GFR 08/17/2021 03/01/2023 Nephrolithiasis 02/16/2021 01/27/2022 Overview: Cysto 11/24/21 Recurrent major depressive d isorder, in partial remission 07/09/2019 07/13/2023 Overview: Depression is included in the Bipolar condition on pl PFO with atrial septal aneurysm 05/16/2019 06/07/2022 Iron deficiency anemia 04/24/201911/29 Overview: More specific on PL Protein-calorie malnutrition 09/28/2018 09/23/2021 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/2021 SUPERVISOR ASBESTOS REMOVAL 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 02/06/2017 05/02/2018 SUPERVISOR ASBESTOS REMOVAL 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 02/06/2017 07/09/2019 Iron deficiency anemia 06/28/201109/20 Overview: ICD-10 update of inactive term Iron deficiency anemia 06/28/201109/20 Overview: ICD-10 update of inactive term Iron deficiency anemia pat paulino to inadequate dietary iron intake 09/26/2008 3 Infected postoperative seroma 06/02/2003 09/20/2012 PANNICULITIS, UNSP SITE 05/14/2003 09/0 11/2022 documented as of this encounter (statuses as of 10/24/2023) Immunizations Name Administration Dates Next Due COVID-19 mRNA, LNP-s, No Pre serve, 2-Dose Series (Lexim) 02/16/2021,11/25/2020,11/01/2020 COVID-19, MRNA-LNP, 23-24, P F, 30 MCG/0.3 mL, 12 YRS AND ABOVE, IM ([facility] 04/10/2023 Covid-19, Mrna, Lnp-s, Pf, B ivalent, 30 Mcg, IM, 12 yrs and above (Lexim) 04/12/2022 Pneumococcal Conjugate Vacci ne, 20-valent ([id number]) 12/10/2021 Pneumococcal Polysaccharide PPV23 (Pneumovax) 07/21/2009 Seasonal [...] encounter Miscellaneous Notes * Telephone Encounter - Shannon Robles OSA - 10/24/2023 9:59 AM EDT Sent myg * Telephone Encounter - Jhonny Rogers OSA - 10/23/2023 10:00 AM EDT Patient needs an appointment with Jodee Austin in [facility] as soon as possible, no available appointments documented in this encounter Plan of Treatment Upcoming Encounters Date Type Department Care Team (Late st Contact Info) Description 10/24/2023 2:00 PM EDT Office Visit Family Medicine [address] [place] [phone] Evelyn Andrews MD [address] [place] [address] [place] [address] 10/31/2023 10:40 AM EDT Telemedicine Nutrition & Weight Management, [place] [address] [place] [address] Vic Wilkerson DO [address] [place] [address] 11/08/2023 10:20 AM EDT Office Visit Family Medicine [address] [place] [phone] Evelyn Andrews MD [address] [place] [address] [place] [address] 12/04/2023 3:45 PM EDT Office Visit Urology, [facility] [address] [facility] [place] [address] Christopher Almonte MD [address] [facility] [address] [place] [phone] 04/29/2024 8:40 AM EST Office Visit Neurology [facility] [address] [facility] [place] [address] Aris Mohr MD [address] [facility] [place] [address] Health Maintenance Due Date Last Done Comments [...] 09/24, 10/09/2023, Additional history exists Albumin/Creatinine Ratio 08/23/202408/23/2 024, 08/23/2022, 09/20/2021 CKD HGB USE SMARTSET 95666 10/08/202410/08, 10/06/2023, 10/05/2023, Additional history exists CKD PHOS USE SMARTSET 94790 10/09/202409/24, 10/09/2023, 10/08/2023, Additional history exists DTaP,Tdap,and [...] this encounter Medical Devices Implanted Type Area Staff Technologist Device Identifier Shelf Expiration Date Model / Serial / Lot Stent Axios 20mm - [id number] Implanted:Qty: 1 on 01/04/2021 by Leyda Garcia MD at OR [facility] N/A: Stomach [employer] : ENDOSCOPY 11/20/2021 [id number] / / [id number] documented as of this encounter Advance Directives Documents on File Type Date Recorded Patient File Machine Operator Expl anation POLST 01/03/2022 [place] OR [facility] FOR LIFE-SUSTAINING TREATMENT Latest [...] Other - (no specific identity) Health Care File Machine Operator (appointed verbally by patient or by statute hierarchy) Rowdy Kraus Health Care File Machine Operator (appointed verbally by patient or by statute hierarchy) Care Teams Head Porter Baggage Relationship Specialty Start Date End Date Evelyn Andrews MD [address] [place] [address] [place] [address] PCP - General Family Medicine 05/04/18 documented as of this encounter
--- OUTSIDE RECORDS SUMMARY | 2023-12-07 18:29 | External Medical Summary | Summary of Care ---
Author Name Unknown Organization [facility] Address [address] [place] [address] Phone [phone] Care Team Providers Care Harbormaster Name Role Phone Evelyn Andrews MD Primary Care Prov ider Reason for Visit * Reason Onset Date Comments TRIAGE 06/21/2023 Encounter Details Date Type Department Care Team (Late st Contact Info) Description 06/21/2023 [facility] [address] [place] [address] [facility] [address] [place] [address] TRIAGE Allergies Active Allergy Reactions Criticality Noted Date Comments Amoxicillin Edema airway High 01/22/2003 Oxybutynin 03/25/2023 Mouth ulcers Sulfa Antibiotics Edema airway High 08/15/2006 documented as of this encounter (statuses as of 10/19/2023) Medications Medication Sig Dispensed Refills Start Date [...] 23 Active Mirtazapine 45 MG Oral Tablet (Remeron)Indicatio ns:Recurrent major depressive disorder, in partial remission (HCC) Take 1 Tablet by mouth at bedtime. 30 Tablet 3 04/12/20 23 Active ALPRAZolam 0.25 MG Oral Tablet (xaNAX)Indications :Anxiety Take 1 Tablet by mouth at bedtime as needed for Sleep. 30 Tablet 3 06/14/20 23 Active Estradiol 0.1 MG/GM Vaginal Cream (Estrace) Administer 1 g into the vagina in the morning. Apply periurethrally as directed.. 42.5 g 2 05/23/20 22 024 Discontinued(Sc dication List Clean Up) Omeprazole 20 MG Oral Capsule Delayed Release (PriLOSEC) TAKE 1 CAPSULE BY MOUTH EVERY DAY IN THE MORNING 90 Capsule 5 07/11/19 23 024 Discontinued Lidocaine 4 % External Patch (Aspercreme) Place 1 Patch every 12 hours topically on the skin in the morning - remove old patch first. Do not start before December 16, 2022. 30 Patch 0 12/17/19 23 024 Discontinued Vitamin D (Ergocalciferol) 1.25 MG (36502 UT) Oral Capsule (Drisdol)Indicatio ns:Diarrhea due to malabsorption TAKE ONE CAPSULE BY MOUTH EVERY OTHER DAY 12 Capsule 6 08/27/19 23 024 Discontinued Myrbetriq 25 MG Oral Tablet Extended Release 24 Hour (Mirabegron ER)Indications:Urg e incontinence of urine Take 1 Tablet by mouth in the morning. 90 Tablet 3 10/09/20 23 024 Discontinued(Sc dication List Clean Up) Nystatin 510891 UNIT/GM External Cream Apply topically to affected area 2 times a day. 30 g 2 04/03/20 23 024 Discontinued Ondansetron 4 MG Oral Tablet Disintegrating (Zofran)Indication s:Intractable vomiting with nausea Place 1 Tablet on tongue every 8 hours as needed for Nausea. 90 Tablet 1 04/25/20 23 024 Discontinued Hqhlmhknux-MGCM-Sl ffeine 50-325-40 MG Oral Tablet (Fioricet)Indicati ons:Migraine [...] 10 mg for 2 days 25 Tablet 0 06/05/20 23 024 Discontinued Diphenoxylate-Atro pine 2.5-0.025 MG Oral Tablet (Lomotil)Indicatio ns:Migraine variant TAKE ONE TABLET BY MOUTH 4 TIMES DAILY NEEDED FOR DAIRRHEA 60 Tablet 0 06/14/20 23 024 Discontinued Rizatriptan Benzoate 10 MG Oral Tablet (Maxalt)Indication s:Migraine variant TAKE 1 TAB BY MOUTH DAILY NEEDED FOR MIGRAINE. 10 Tablet 5 06/14/20 23 024 Discontinued(Re fill) documented as of this encounter (statuses as of 10/19/2023) Active Problems Problem Noted Date Diagnosed Date [...] as of this encounter (statuses as of 10/19/2023) Resolved Problems Problem Noted Date Diagnosed Date Resolved Date Old MS (myocardial infarction) 03/01/2023 03/01/2023 Atherosclerosis of [place] [...] malnutrition 09/28/2018 09/23/2021 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/2021 STUDENT TEACHER 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 02/06/2017 05/02/2018 STUDENT TEACHER 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 02/06/2017 07/09/2019 Iron deficiency anemia 06/28/201109/20 Overview: ICD-10 update of inactive term Iron deficiency anemia 06/28/201109/20 Overview: ICD-10 update of inactive term Iron deficiency anemia pat morrisony to inadequate dietary iron intake 09/26/2008 3 Infected postoperative seroma 06/02/2003 09/20/2012 PANNICULITIS, [facility] SITE 05/14/200311/2022 documented as of this encounter (statuses as of 10/19/2023) Immunizations Name Administration Dates Next Due COVID-19 mRNA, LNP-s, No Pre serve, 2-Dose Series ([employer]) 02/16/2021,11/25/2020,11/01/2020 COVID-19, MRNA-LNP, 23-24, P F, 30 MCG/0.3 mL, 12 YRS AND ABOVE, IM ([employer]) 04/10/2023 Covid-19, Mrna, Lnp-s, Pf, B ivalent, 30 Mcg, IM, 12 yrs and above ([employer]) 04/12/2022 Pneumococcal Conjugate Vacci ne, 20-valent ([id number]) 12/10/2021 Pneumococcal Polysaccharide PPV23 (Pneumovax) 07/21/2009 Seasonal [...] No 12/08/2022 documented as of this encounter Miscellaneous Notes * Telephone Encounter - Aliyah Hodges CPhT - 10/19/2023 1:31 PM EDT Patient has been identified through [facility] frequent abortive medication refill report. [facility] intake teamis attempting to reach the patient via a myG message for prescreening purposes. Thank you, Aliyah Hodges Job Placement Specialist [facility] ([facility] (Formerly Telepharmacy) 10/19/2023,1:31 PM * Telephone Encounter - Aliyah Hodges CPhT - 06/21/2023 3:18 PM EST Patient has been identified through [facility] frequent abortive medication refill report. [facility] intake teamis attempting to reach the patient via a myG message for prescreening purposes. Thank you, Aliyah Hodges Job Placement Specialist [facility] ([facility] (Formerly Telepharm[facility]) 06/21/2023,3:20 PM documented in this encounter Plan of Treatment Upcoming Encounters Date Type Department Care Team (Late st Contact Info) Description 10/23/2023 9:20 AM EDT Office Visit Neurology [facility] [address] [place] [address] Aris Mohr MD [address] [place] [address] 10/31/2023 10:40 AM EDT Telemedicine Nutrition & Weight Management, [place] [address] [place] [address] Vic Wilkerson DO [address] [place] [address] 11/08/2023 10:20 AM EDT Office Visit Family Medicine [address] [place] [address] Evelyn Andrews MD [address] [place] [address] [place] [id number] 12/04/2023 3:45 PM EDT Office Visit Urology, [facility] [address] [facility] [place] [address] Christopher Almonte MD [address] [place] [address] Health Maintenance Due Date Last Done Comments [...] 024, 08/23/2022, 09/20/2021 CKD HGB USE SMARTSET 83328 10/08/202410/08, 10/06/2023, 10/05/2023, Additional history exists CKD PHOS USE SMARTSET 47107 10/09/202409/24, 10/09/2023, 10/08/2023, Additional history exists DTaP,Tdap,and [...] this encounter Medical Devices Implanted Type Area Client Service Executive Device Identifier Shelf Expiration Date Model / Serial / Lot Stent Axios 20mm - [id number] Implanted:Qty: 1 on 01/04/2021 by Leyda Garcia MD at OR [facility] N/A: Stomach [employer] : ENDOSCOPY 11/20/2021 [id number] / / [id number] documented as of this encounter Additional Health Concerns Infection Onset Date Last Indicated Resolved Time Respiratory Rule-Out 10/01/2023 10/01/2023 024 4:57 AM EDT COVID-19 Rule-Out 10/01/2023 10/01/2023 10/01/2023 4:57 AM EDT documented as of this encounter Advance Directives Documents on File Type Date Recorded Patient Wall Crane Operator Expl anation POLST 01/03/2022 [facility] FOR LIFE-SUSTAINING TREATMENT Latest Code Status [...] Other - (no specific identity) Health Care Wall Crane Operator (appointed verbally by patient or by statute hierarchy) Rowdy Kraus Health Care Wall Crane Operator (appointed verbally by patient or by statute hierarchy) Care Teams Harbormaster Relationship Specialty Start Date End Date Evelyn Andrews MD [address] [place] [address] [place] [phone] PCP - General Family Medicine 05/04/18 documented as of this encounter
--- OUTSIDE RECORDS SUMMARY | 2023-12-07 18:29 | External Medical Summary | Summary of Care ---
Author Name Unknown Organization [facility] Address [address] [place] [address] Phone [phone] Care Team Providers Care Human Service Worker Name Role Phone Evelyn Andrews MD Primary Care Prov ider Reason for Referral * Evaluate & Treat - Unlimited Visits (Within 30 days (routine)) - Authorized Specialty Diagnoses / Procedures Referred By Contac t Referred To Contact Neurology Diagnoses White matter disease Migraine variant Copper deficiency myeloneuropathy (HCC) Myelopathy (HCC) Aris Mohr MD [address] [place] [address] Jodee Austin MD [address] [place] [address] Referral ID Status Reason Start Date Expiration Date Visits Requested Visits Authorized [id number] Authorized Specialty Services Required 10/23/2023 999 999 Question Answer Referral Priority Within 30 days (routine) CAD NEUROLOGY REFERRAL QUESTIONS Multiple Sclerosis Does the patient's condition allow them to wait to be seen by a specialist or should they be seen by first available provider? Or is this a follow up with established provider? Specialist Where should this appointment be scheduled? 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 recent hospitalization for malnutrition with again the question of ms raised and csf studies un changed Consultation with ms expert recommended by hospitalist thanks in advance Aris Mohr MD Reason for Visit * Reason Comments Follow Up Encounter Details Date Type Department Care Team (Latest Contact Info) Description 10/23/2023 9:20 AM EDT Office Visit Neurology Theresa [facility] [place] [address] [facility] [place] [address] Aris Mohr MD [address] [facility] [place] [address] White matter disease*; Migraine variant; Copper deficiency myeloneuropathy (HCC); Myelopathy (HCC) Allergies Active Allergy Reactions Criticality Noted Date Comments Amoxicillin Edema airway High 01/22/2003 Oxybutynin 03/25/2023 Mouth ulcers Sulfa Antibiotics Edema airway High 08/15/2006 documented as of this encounter (statuses as of 10/23/2023) Medications Medication Sig Dispensed Refills Start Date [...] Cough. 120 mL 0 06/28/2023 Active Nystatin 203147 UNIT/GM External Cream APPLY TO AFFECTED AREA [...] FOR MIGRAINE. 10 Tablet 5 09/18/2023 Active Szlpallifp-UZJF-Tfnn eine 50-325-40 MG Oral Tablet (Fioricet)Indication s:Migraine [...] 10/10/2023 11/09/19 24 Active Ergocalciferol 1.25 MG (31347 UT) Oral Capsule (Vitamin D2(Drisdol)) Take 1 [...] as of this encounter (statuses as of 10/23/2023) Active Problems Problem Noted Date Diagnosed Date [...] as of this encounter (statuses as of 10/23/2023) Resolved Problems Problem Noted Date Diagnosed Date Resolved Date Old IL (myocardial infarction) 03/01/2023 03/01/2023 Atherosclerosis of [place] co ronary artery without angina pectoris 02/08/2022 [...] malnutrition 09/28/2018 09/23/2021 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/2021 REPAIRER RECREATIONAL VEHICLE 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 02/06/2017 05/02/2018 REPAIRER RECREATIONAL VEHICLE 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 02/06/2017 07/09/2019 Iron deficiency anemia 06/28/201109/20 Overview: ICD-10 update of inactive term Iron deficiency anemia 06/28/201109/20 Overview: ICD-10 update of inactive term Iron deficiency anemia pat paulino to inadequate dietary iron intake 09/26/2008 3 Infected postoperative seroma 06/02/2003 09/20/2012 PANNICULITIS, [facility] SITE 05/14/2003 09/0 11/2022 documented as of this encounter (statuses as of 10/23/2023) Immunizations Name Administration Dates Next Due COVID-19 mRNA, LNP-s, No Pre serve, 2-Dose Series (Qvolve) 02/16/2021,11/25/2020,11/01/2020 COVID-19, MRNA-LNP, 23-24, P F, 30 MCG/0.3 mL, 12 YRS AND ABOVE, IM (Estrategias y Procesos para Portales Corporativos-Comirnaty) 04/10/2023 Covid-19, Mrna, Lnp-s, Pf, B ivalent, 30 Mcg, IM, 12 yrs and above (Pfizer) 04/12/2022 Pneumococcal Conjugate Vacci ne, 20-valent ([id number]) 12/10/2021 Pneumococcal Polysaccharide PPV23 (Pneumovax) 07/21/2009 Seasonal [...] Sign Reading Time Taken Comments Blood Pressure 100/62 10/23/2023 9:21 AM EDT Pulse 96 10/23/2023 9:21 AM EDT Temperature 35.4 C (95.8 F) 10/23/2023 9:21 AM ED T Respiratory Rate 18 10/23/2023 9:21 AM EDT Oxygen Saturation 96% 10/23/2023 9:21 AM EDT Inhaled Oxygen Concentration - - Weight 37.7 kg (83 lb 1.6 oz) 10/23/2023 9:21 AM EDT Height - - Body Mass Index 16.78 10/17/2023 3:25 PM EDT documented in this [...] as of this encounter Progress Notes * Aris Mohr MD - 10/23/2023 9:56 AM EDT CLINIC NOTES Neurology [facility] [place] [address] [facility] [place] [address] Chandrika Hogue [id number] 1965 NEUROLOGY OUTPATIENT NOTE 10/23/2023 HISTORY: Chandrika is 58 years old and was recently discharged from [facility] where she was admitted for 21 days for total parenteral nutrition in light of her chronic malabsorption syndromepost bypass but worsening over the years and complicated by pneumonia and other infections. 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 back about 5-6 years ago when she presented with a peculiar gait disturbance in association with a very low serum copper level and withthe imaging studies which showed enhancement of the posterior columns in the cervical region coupled with multifocal white matter changes in the brain She does have a long history of migraine headaches we have attributed white matter changes to this and he and she has been evaluated for MS before with CSF analysis multiple referrals outside our system including to the [facility] and in her CSF she has up to 5 bands and these masses bands that are in her serum so there is really no immunologic confirmation of intra blood-brain barrier synthesis of IgG and thus no real support for immune mediated demyelinating disorder She had an identical workup done at [facility] when the hospitalist was concerned about herMRI and her gait and again the CSF showed 5 bands which matched the serum balance It has been suggested that she requires MS specialty evaluation She has a chronic gait disturbance since the copper deficiency myelopathy which is largely stable and really has never had any other symptoms that would bring MS to mine but does have a long history of frequent migraines some of which have aura Currently she has not had Botox for some time because of some scheduling errors and needs to get back on as her headaches are now 4-5 days a week resistant to most medications She is going to let me know she is another referral and I will be happy to do so by think she will probably be able to parts picker where she left off and restart the Botox which should reset her system Otherwise her health has been stable Past Medical History: Diagnosis Date CAD (coronary artery disease) Chronic diarrhea REPAIRER RECREATIONAL VEHICLE 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 (HCC) 02/06/2017 Depressive disorder, not elsewhere [...] colpo Tobacco use disorder Vitamin D deficiency Past Surgical History: Procedure Laterality Date COLONOSCOPY W/ BIOPSY (RECTUM) 01/15/2007 normal COLONOSCOPY, DIAGNOSTIC (RECTUM) 12/10/2013 normal bx/COLONOSCOPY FLEXIBLE PROXIMAL DIAGNOSTIC performed by Milind Hernandez MD at [facility] COLPOSCPY CERVIX W/BX AND EC 08/24/2009 Colposcopy with biopsies COLPSCPY CERVIX W/LOOP ELECT 09/24/2009 LEEP of cervix CYSTO W/URETER STRICTURE TX 07/19/2006 CYSTO/URETERO W/LITHOTRIPSY Right 11/24/2021 CYSTOURETHROSCOPY URETEROSCOPY WITH LITHOTRIPSY AND STENT INSERTION performed by Christopher Almonte MD at [facility] CYSTO/URETERO W/LITHOTRIPSY Right 05/02/2022 CYSTOURETHROSCOPY URETEROSCOPY WITH LITHOTRIPSY AND STENT INSERTION performed by Christopher Almonte MD at OR [facility] CYSTO/URETERO W/LITHOTRIPSY Right 09/26/2022 CYSTOURETHROSCOPY URETEROSCOPY WITH LITHOTRIPSY AND STENT INSERTION performed by Christopher Almonte MD at [facility] CYSTOSCOPY/INSERTION OF STENT 07/19/2006 CYSTOSCOPY/INSERTION OF STENT Right 05/16/2022 CYSTOURETHROSCOPY WITH INSERTION URETERAL STENT performed by Christopher Almonte MD at OR [facility] CYSTOSCOPY/URETERAL CATHETER Right 11/24/2021 CYSTOURETHROSCOPY WITH URETERAL CATHETER performed by Christopher Almonte MD at OR [facility] CYSTOURETERO W/LITHOTRIPSY 07/19/2006 EGD, FLEXIBLE, DIAGNOSTIC 11/09/2011 UPPER GI ENDOSCOPY DIAGNOSTIC performed by MILIND HERNANDEZ at [facility] EGD, FLEXIBLE, DIAGNOSTIC 04/19/2013 UPPER GI ENDOSCOPY DIAGNOSTIC performed by Tj Quarles MD at [facility] EGD, FLEXIBLE, DIAGNOSTIC 12/10/2013 normal/ESOPHAGOGASTRODUODENOSCOPY (EGD), FLEXIBLE, TRANSORAL, DIAGNOSTIC performed by Milind Hernandez MD at [facility] EGD, FLEXIBLE, DIAGNOSTIC N/A 05/12/2015 ESOPHAGOGASTRODUODENOSCOPY (EGD), FLEXIBLE, TRANSORAL, DIAGNOSTIC performed by Chris Suresh MDat OR [facility] EGD, FLEXIBLE, PLACE GASTRO TUBE N/A 04/02/2021 ESOPHAGOGASTRODUODENOSCOPY (EGD), FLEXIBLE, TRANSORAL, WITH PERCUTANEOUS GASTROSTOMY INSERTION performed by Chris Suresh MD at OR [facility] EGD, FLEXIBLE, W/BIOPSY 01/20/2010 inflammation of stomach EGD, FLEXIBLE, W/CYST DRAINAGE N/A 01/04/2021 AXIOS stent performed/due to inability to localize a site for safe percutaneous placement for PEG not completed/ESOPHAGOGASTRODUODENOSCOPY (EGD), FLEXIBLE, TRANSORAL, WITH DRAINAGE PSEUDOCYST performed by Leyda Garcia MD at OR [facility] ERCP, DIAGNOSTIC, SPECIMEN COLLECTION 07/31/2013 ENDOSCOPIC RETROGRADE CHOLANGIOPANCREATOGRAPHY (ERCP) DIAGNOSTIC performed by Darian Griffin MD at [facility] GASTRIC BYPASS FOR OBESITY 06/26/2000 [place]/ amber en y INFORMATION plastic surgery pannus, arms INFORMATION 2020 Heart Cath. INSER AMY CAT,W/O PUMP;5YR/OLD N/A 12/09/2022 INSERT TUNNELED CENTRAL VENOUS CATHETER AGE 5 OR OLDER performed by Cezar Lerma DO at OR [facility] IOF CT GUIDED NEEDLE BIOPSY 06/23/2014 CT GUIDED NEEDLE ASPIRATION BIOPSY performed by Kali Velez MD at RADIOLOGY [facility] JEJUNOSTOMY, LAPAROSCOPIC N/A 04/02/2021 LAPAROSCOPIC ILEOSTOMY OR JEJUNOSTOMY performed by Chris Suresh MD at [facility] LAP SURGICAL, GASTROSTOMY 02/12/2014 02/12/2014 LAPAROSCOPIC GASTROSTOMY WITHOUT RECONSTRUCION GASTRIC TUBE performed by Chris Suresh MD at [facility] LAPARO RADICAL NEPHRECTOMY Right 11/17/2022 LAPAROSCOPIC RADICAL NEPHRECTOMY performed by Christopher Almonte MD at [facility] LAPAROSCOPE PROCEDURE, LIVER 07/31/2013 UNLISTED LAPAROSCOPIC PROCEDURE LIVER performed by Chris Suresh MD at [facility] LAPAROSCOPY DIAGNOSTIC 07/31/2013 LAPAROSCOPY DIAGNOSTIC performed by Chris Suresh MD at [facility] LAPAROSCOPY DIAGNOSTIC N/A 05/12/2015 05/12/2015 LAPAROSCOPY DIAGNOSTIC performed by Chris Suresh MD at [facility]/ REDUCTION OF BOWEL OBSTRUCTION 06/26/2004 Dr. 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 Comment: [employer] Tobacco Use Smoking status: Every Day Current packs/day: 0.50 Average packs/day: 0.5 packs/day for 30.0 years (15.0 ttl pk-yrs) Types: Cigarettes Smokeless tobacco: Never Vaping Use Vaping Use: Never used Substance and Sexual Activity Alcohol use: Not Currently Comment: occ Drug use: No Sexual activity: Yes Partners: Male control/protection: Injection Other Topics Concern Service Not Asked Blood Transfusions No Caffeine Concern Not Asked Occupational Exposure Not Asked Hobby Hazards Not Asked Sleep Concern Not Asked Stress Concern Not Asked Weight Concern Not Asked Special Diet Not Asked Back Care Not Asked Exercise Not Asked Bike Helmet Not Asked Seat Belt Yes Self-Exams Not Asked Social History Narrative Social Determinants of Health Financial Resource Strain: Not on file Food Insecurity: No Food Insecurity (05/22/2023) Hunger Vital Sign Worried About Running Out of Food in the Last Year: Never true Ran Out of Food in the Last Year: Never true Transportation Needs: Not on file Physical Activity: Not on file Stress: Not on file Social Connections: Not on file Intimate Partner Violence: Not on file Housing Stability: Not on file Family History Problem Relation Age of Onset Heart Disorder Mother elderly Hypertension Mother Kidney disease Father Brain cancer Father (possibly) Current Outpatient Medications Medication Sig Dispense Refill [...] needed for Cough. 120 mL 0 Nystatin 322751 UNIT/GM External Cream APPLY TO AFFECTED AREA [...] DAILY NEEDED FOR MIGRAINE. 10 Tablet 5 Zorxfxfjrs-BVLO-Tidrztvx 50-325-40 MG Oral Tablet (Fioricet) TAKE ONE [...] morning. 30 Packet 0 Ergocalciferol 1.25 MG (51194 UT) Oral Capsule (Vitamin D2(Drisdol)) Take 1 [...] on the skin daily. 90 Patch 3 Vancomycin HCl 125 MG Oral Capsule (Vancocin) Take 1 Capsule by mouth every 6 hours for 7 days. For7 days 28 Capsule 0 levoFLOXacin 250 MG Oral Tablet Take 1 Tablet by mouth in the morning for 7 days. until gone.. (Patient not taking: Reported on 10/23/2023) 7 Tablet 0 No current facility-administered medications for this visit. Review of patient's allergies indicates: Allergen Reactions Amoxicillin Edema airway Sulfa Antibiotics Edema airway Oxybutynin Mouth ulcers REVIEW OF SYSTEMS: With the exception of historical items included in the history of present illness above, a 12-point systems review was normal. PHYSICAL EXAM: BP 100/62 (BP Site: Right Arm, BP Position: Sitting, BP Cuff Size: Regular) | Pulse 96 | Temp 35.4 C (95.8 F) (Tympanic) | Resp 18 | Wt 37.7 kg (83 lb 1.6 oz) | LMP 04/05/2007 | SpO2 96% | BMI 16.78 kg/m | BSA 1.25 m She is awake alert oriented 3 spheres with normal eye movements facial motility strength facial sensation clear speech Gait has a spastic dystaxic component to it requiring an assistive device. Reflexes are absent at the ankles a little brisk at the knees toes are equivocal strength is good sensation reveals reduced vibration up to about the mid thighs with some loss over the fingertips but improved proprioception in the lower extremities and slight reduced light touch with intact pinprick and temperature all consistent with a posterior column myelopathy that we know exist based on MRI scans LABORATORY: Refer the reader to the above note for the pertinent CSF findings IE multiple oligoclonal bands in serum and CSF which match implying a peripheral immunologic issue IMAGING; imaging of the years has consistently shown multiple areas of white matter change throughout the brain and the posterior columns of the spinal cord. I refer the reader to sequential MRI reports for details ASSESSMENT AND PLAN: I continue to feel that this is not multiple sclerosis white matter changes are nonspecific or perhaps related to migraine or an element of both. 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 Denton provide an opinion regarding whether or not she does have underlying demyelinating disease if sowhether any of the MS drugs currently available would help I frankly doubt that anything will be offered but hopefully another opinion will help clear the air diagnostically as the issue seems to keep coming up in her case I spent a total of 20-29 minutes (exact time 25 mins) on the date of service in preparation, delivery, and documentation of the care provided to Chandrika Hogue excluding any time spent in the performance of separately billed services. The above note was generated utilizing voice recognition technology may have spelling errors punctuation errors pronoun usage errors and syntax errors Aris Mohr MD documented in this encounter Nursing Notes * Cleopatra Britt LPN - 10/23/2023 9:20 AM EDT Patient verified identity by spelling of last name and date. Chief Complaint Patient presents with Follow Up documented in this encounter Plan of Treatment Upcoming Encounters Date Type Department Care Team (Late st Contact Info) Description 10/24/2023 2:00 PM EDT Office Visit Family [address] [phone] Evelyn Andrews MD [address] [place] [address] [place] [phone] 10/31/2023 10:40 AM EDT Office Visit Nutrition & Weight Management, [place] [address] [place] [address] Vic Wilkerson DO [address] [place] [address] 11/08/2023 10:20 AM EDT Office Visit Family [address] [phone] Evelyn Andrews MD [address] [place] [address] [place] [address] 12/04/2023 3:45 PM EDT Office Visit Urology, [address] [place] [address] Christopher Almonte MD [address] [place] [address] 04/29/2024 8:40 AM EST Office Visit Neurology Theresa [facility] [place] [address] [facility] [place] [address] Aris Mohr MD [address] [facility] [place] [address] Scheduled Referrals Name Type Priority Associated Diagnoses Orde r Schedule NEUROLOGY REFERRAL OP Referral Within 30 days (routine) White matter disease Migraine variant Copper deficiency myeloneuropathy (HCC) Myelopathy (HCC) Ordered: 10/23/2023 Health Maintenance Due Date Last Done Comments [...] 09/24, 10/09/2023, Additional history exists Albumin/Creatinine Ratio 08/23/20242 024, 08/23/2022, 09/20/2021 CKD HGB USE SMARTSET 51328 10/08/202410/08, 10/06/2023, 10/05/2023, Additional history exists CKD PHOS USE SMARTSET 76817 10/09/202409/24, 10/09/2023, 10/08/2023, Additional history exists DTaP,Tdap,and [...] this encounter Medical Devices Implanted Type Area Stem Lead Former Device Identifier Shelf Expiration Date Model / Serial / Lot Stent Axios 20mm - [id number] Implanted:Qty: 1 on 01/04/2021 by Leyda Garcia MD at OR [facility] N/A: Stomach [employer] : ENDOSCOPY 11/20/2021 [id number] / / [id number] documented as of this encounter Visit Diagnoses Diagnosis White matter disease- Primary Other conditions of brain Migraine variant Variants of migraine, not elsewhere classified, without mention of intractable migraine without mention of status migrainosus 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 Myelopathy (HCC) Unspecified disease of spinal cord documented in this encounter Advance Directives Documents on File Type Date Recorded Patient Electronic Drafter Expl anation POLST 01/03/2022 [place] [facility] FOR LIFE-SUSTAINING TREATMENT Latest Code Status on [...] Other - (no specific identity) Health Care Electronic Drafter (appointed verbally by patient or by statute hierarchy) Rowdy Kraus Health Care Electronic Drafter (appointed verbally by patient or by statute hierarchy) Care Teams Human Service Worker Relationship Specialty Start Date End Date Evelyn Andrews MD [address] [place] [address] [place] [phone] PCP - General Family Medicine 05/04/18 documented as of this encounter"
--- OUTSIDE RECORDS SUMMARY | 2023-12-07 18:29 | External Medical Summary | Summary of Care ---
Author Name Unknown Organization [facility] Address [address] [place] [address] Phone [phone] Care Team Providers Care Retail Account Manager Name Role Phone Evelyn Andrews MD Primary Care Prov ider Reason for Visit * Reason Onset Date Comments Appointment 10/16/2023 Encounter Details Date Type Department Care Team (Late st Contact Info) Description 10/16/2023 Telephone [facility], [address] [address] Evelyn Andrews MD [address] [place] [address] [place] [address] Appointment Allergies Active Allergy Reactions Criticality [...] Cough. 120 mL 0 06/28/2023 Active Nystatin 621139 UNIT/GM External Cream APPLY TO AFFECTED AREA [...] FOR MIGRAINE. 10 Tablet 5 09/18/2023 Active Apluhduvfl-OLUZ-Cujx eine 50-325-40 MG Oral Tablet (Fioricet)Indication s:Migraine [...] 10/10/2023 11/09/19 24 Active Ergocalciferol 1.25 MG (28262 UT) Oral Capsule (Vitamin D2(Drisdol)) Take 1 [...] skin daily. 90 Patch 3 10/16/2023 Active documented as of this encounter (statuses [...] Noted Date Diagnosed Date Resolved Date Old MD (myocardial infarction) 03/01/2023 03/01/2023 Atherosclerosis of [place] co ronary artery without angina pectoris 02/08/2022 [...] malnutrition 09/28/2018 09/23/2021 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/2021 FURNACE PROCESS SUPERVISOR 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 02/06/2017 05/02/2018 FURNACE PROCESS SUPERVISOR 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 02/06/2017 07/09/2019 Iron deficiency anemia 06/28/201109/20 Overview: ICD-10 update of inactive term Iron deficiency anemia 06/28/201109/20 Overview: ICD-10 update of inactive term Iron deficiency anemia secon jefferson to inadequate dietary iron intake 09/26/2008 3 Infected postoperative seroma 06/02/2003 09/20/2012 PANNICULITIS, UNSP SITE 05/14/2003 090 11/2022 documented as of this encounter (statuses as of 10/19/2023) Immunizations Name Administration Dates Next Due COVID-19 mRNA, LNP-s, No Pre serve, 2-Dose Series ([employer]) 02/16/2021,11/25/2020,11/01/2020 COVID-19, MRNA-LNP, 23-24, P F, 30 MCG/0.3 mL, 12 YRS AND ABOVE, IM (Leap-Comirnaty) 04/10/2023 Covid-19, Mrna, Lnp-s, Pf, B ivalent, 30 Mcg, IM, 12 yrs and above (Pfizer) 04/12/2022 Pneumococcal Conjugate Vacci ne, 20-valent ([id number]) 12/10/2021 Pneumococcal Polysaccharide PPV23 (Pneumovax) 07/21/2009 Seasonal [...] encounter Miscellaneous Notes * Telephone Encounter - Serene Vargas LPN - 10/19/2023 4:43 PM EDT Pt aware of Note below via identified VM box She is scheduled on 10/24/23 Pt also aware via mychart * Telephone Encounter - Evelyn Andrews MD - 10/16/2023 5:17 PM EDT Lido patch Rx sent to mail order. Please let her know. Please also get her appt with me as soon as we can get her in. Within 1-2 weeks preferably. documented in this encounter Plan of Treatment Upcoming Encounters Date Type Department Care Team (Late st Contact Info) Description 10/23/2023 9:20 AM EDT Office Visit Neurology [facility] 200 [facility] [place], [place] [address] Aris Mohr MD [facility] [place] [address] 10/24/2023 2:00 PM EDT Office Visit Family Medicine [address] [place] [phone] Evelyn Andrews MD [address] [place] [address] [place] [address] 10/31/2023 10:40 AM EDT Telemedicine Nutrition & Weight Management, [place] [address] [place] [address] Vic Wilkerson DO [address] [place] [address] 11/08/2023 10:20 AM EDT Office Visit Family Medicine [address] [place] [phone] Evelyn Andrews MD [address] [place] [address] [place] [address] 12/04/2023 3:45 PM EDT Office Visit Urology, [facility] 132 [facility] [place] [address] Christopher Almonte MD 27 [facility] [address] [place] [address] Health Maintenance Due Date Last Done Comments [...] 024, 08/23/2022, 09/20/2021 CKD HGB USE SMARTSET 69409 10/08/202410/08, 10/06/2023, 10/05/2023, Additional history exists CKD PHOS USE SMARTSET 05997 10/09/2024 0411/2023, 10/09/2023, 10/08/2023, Additional history exists DTaP,Tdap,and Td [...] this encounter Medical Devices Implanted Type Area Licsw Device Identifier Shelf Expiration Date Model / Serial / Lot Stent Axios 20mm - [id number] Implanted:Qty: 1 on 01/04/2021 by Leyda Garcia MD at OR [facility] N/A: Stomach [employer] : ENDOSCOPY 11/20/2021 [id number] / / [id number] documented as of this encounter Visit Diagnoses Diagnosis Myelopathy (HCC)- Primary Unspecified disease of spinal cord documented in this encounter Advance Directives Documents on File Type Date Recorded Patient Slope Hoist Operator Expl anation POLST 01/03/2022 [place] OR [facility] FOR [...] Other - (no specific identity) Health Care Slope Hoist Operator (appointed verbally by patient or by statute hierarchy) Rowdy Hogue [facility] Health Care Slope Hoist Operator (appointed verbally by patient or by statute hierarchy) Care Teams Retail Account Manager Relationship Specialty Start Date End Date Evelyn Andrews MD [address] [place] [address] [place] [address] PCP - General Family Medicine 05/04/18 documented as of this encounter
--- OUTSIDE RECORDS SUMMARY | 2023-12-07 18:29 | External Medical Summary | Summary of Care ---
Author Name Unknown Organization [facility] Address [address] [place] [address] Phone [phone] Care Team Providers Care Boiler Out Name Role Phone Evelyn Andrews MD Primary Care Prov ider Reason for Visit * Reason Onset Date Comments Appointment 10/23/2023 Encounter Details Date Type Department Care Team (Late st Contact Info) Description 10/23/[address] [phone] Evelyn Andrews MD [address] [place], [place] [address] [address] Appointment Allergies Active Allergy Reactions Criticality [...] Cough. 120 mL 0 06/28/2023 Active Nystatin 746942 UNIT/GM External Cream APPLY TO AFFECTED AREA [...] FOR MIGRAINE. 10 Tablet 5 09/18/2023 Active Gqetueihzf-OVUY-Dhca eine 50-325-40 MG Oral Tablet (Fioricet)Indication s:Migraine [...] 10/10/2023 11/09/19 24 Active Ergocalciferol 1.25 MG (86878 UT) Oral Capsule (Vitamin D2(Drisdol)) Take 1 [...] 7 days 28 Capsule 0 10/20/2023 10/27/19 Active documented as of this encounter (statuses [...] Noted Date Diagnosed Date Resolved Date Old CO (myocardial infarction) 03/01/2023 03/01/2023 Atherosclerosis of [place] co ronary artery without angina pectoris 02/08/2022 [...] malnutrition 09/28/2018 09/23/2021 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/2021 AQUACULTURE PROGRAM DIRECTOR 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 02/06/2017 05/02/2018 AQUACULTURE PROGRAM DIRECTOR 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 02/06/2017 07/09/2019 Iron deficiency anemia 06/28/201109/20 [...] mRNA, LNP-s, No Pre serve, 2-Dose Series (Vahna) 02/16/2021,11/25/2020,11/01/2020 COVID-19, MRNA-LNP, 23-24, P F, 30 MCG/0.3 mL, 12 YRS AND ABOVE, IM ([facility] 04/10/2023 Covid-19, Mrna, Lnp-s, Pf, B ivalent, 30 Mcg, IM, 12 yrs and above (Vahna) 04/12/2022 Pneumococcal Conjugate Vacci ne, 20-valent ([id number]) 12/10/2021 Pneumococcal Polysaccharide PPV23 (Pneumovax) 07/21/2009 Seasonal [...] encounter Miscellaneous Notes * Telephone Encounter - Jhonny Rogers OSA - 10/23/2023 10:00 AM EDT Patient needs an appointment with Jodee Austin in [facility] as soon as possible, no available appointments documented in this encounter Plan of Treatment Upcoming Encounters Date Type Department Care Team (Late st Contact Info) Description 10/24/2023 2:00 PM EDT Office Visit Family Medicine [address] [phone] Evelyn Andrews MD [address] [place] [address] [place] [address] 10/31/2023 10:40 AM EDT Telemedicine Nutrition & Weight Management, [place] [address] [place] [address] Vic Wilkerson DO [address] [place] [address] 11/08/2023 10:20 AM EDT Office Visit Family Medicine [address] [place] [phone] Evelyn Andrews MD [address] [place] [address] [place] [address] 12/04/2023 3:45 PM EDT Office Visit Urology, [facility] [address] [place] [address] Christopher Almonte MD 27 [facility] 270 [place] [address] 04/29/2024 8:40 AM EST Office Visit Neurology [facility] [address] [place] [address] Aris Mohr MD [address] [place] [address] Health Maintenance Due Date Last Done Comments [...] 024, 08/23/2022, 09/20/2021 CKD HGB USE SMARTSET 31526 10/08/202410/08, 10/06/2023, 10/05/2023, Additional history exists CKD PHOS USE SMARTSET 23033 10/09/2024 0411/2023, 10/09/2023, 10/08/2023, Additional history exists [...] this encounter Medical Devices Implanted Type Area Paper Deliverer Device Identifier Shelf Expiration Date Model / Serial / Lot Stent Axios 20mm - [id number] Implanted:Qty: 1 on 01/04/2021 by Leyda Garcia MD at OR [facility] N/A: Stomach [employer] : ENDOSCOPY 11/20/2021 [id number] / / [id number] documented as of this encounter Advance Directives Documents on File Type Date Recorded Patient Natural Gas Technician Expl anation POLST 01/03/2022 [facility] FOR LIFE-SUSTAINING TREATMENT Latest Code Status on [...] Other - (no specific identity) Health Care Natural Gas Technician (appointed verbally by patient or by statute hierarchy) Rowdy Kraus Health Care Natural Gas Technician (appointed verbally by patient or by statute hierarchy) Care Teams Boiler Out Relationship Specialty Start Date End Date Evelyn Andrews MD [address] [place] [address] [place] [address] PCP - General Family Medicine 05/04/18 documented as of this encounter
--- OUTSIDE RECORDS SUMMARY | 2023-12-07 18:30 | External Medical Summary | Summary of Care ---
Author Name Unknown Organization [facility] Address [address] [place] [address] Phone [phone] Care Team Providers Care Tire Changer Name Role Phone Evelyn Andrews MD Primary Care Prov ider Reason for Visit * Reason Onset Date Comments case management 10/11/2023 Advice 10/11/2023 Encounter Details Date Type Department Care Team (Late st Contact Info) Description 10/11/2023 Telephone Care Coordination and Integration [address] [place] [address] Shahla Pan RN [address] [place], [place] [phone] case management; Advice Allergies Active Allergy Reactions Criticality Noted Date Comments Amoxicillin Edema airway High 01/22/2003 Oxybutynin 03/25/2023 Mouth ulcers Sulfa Antibiotics Edema airway High 08/15/2006 documented as of this encounter (statuses as of 10/17/2023) Medications Medication Sig Dispensed Refills Start Date [...] Cough. 120 mL 0 4 Active Nystatin 846303 UNIT/GM External Cream APPLY TO AFFECTED AREA [...] FOR MIGRAINE. 10 Tablet 5 4 Active Udklofvhbm-FXKV-Pkex eine 50-325-40 MG Oral Tablet (Fioricet)Indication s:Migraine [...] 4 11/09/19 24 Active Ergocalciferol 1.25 MG (23775 UT) Oral Capsule (Vitamin D2(Drisdol)) Take 1 [...] as of this encounter (statuses as of 10/17/2023) Active Problems Problem Noted Date Diagnosed Date [...] as of this encounter (statuses as of 10/17/2023) Resolved Problems Problem Noted Date Diagnosed Date Resolved Date Old CA (myocardial infarction) 03/01/2023 03/01/2023 Atherosclerosis of [place] co ronary artery without angina pectoris 02/08/2022 [...] malnutrition 09/28/2018 09/23/2021 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/2021 TONGER 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 02/06/2017 05/02/2018 TONGER 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 02/06/2017 07/09/2019 Iron deficiency anemia 06/28/201109/20 Overview: ICD-10 update of inactive term Iron deficiency anemia 06/28/201109/20 Overview: ICD-10 update of inactive term Iron deficiency anemia pat paulino to inadequate dietary iron intake 09/26/2008 3 Infected postoperative seroma 06/02/2003 09/20/2012 PANNICULITIS, UNSP SITE 05/14/2003 09/0 11/2022 documented as of this encounter (statuses as of 10/17/2023) Immunizations Name Administration Dates Next Due COVID-19 mRNA, LNP-s, No Pre serve, 2-Dose Series (GRID) 02/16/2021,11/25/2020,11/01/2020 COVID-19, MRNA-LNP, 23-24, P F, 30 MCG/0.3 mL, 12 YRS AND ABOVE, IM (PFIZER-Comirnaty) 04/10/2023 Covid-19, Mrna, Lnp-s, Pf, B ivalent, 30 Mcg, IM, 12 yrs and above (Pfizer) 04/12/2022 Pneumococcal Conjugate Vacci ne, 20-valent ([id number]) 12/10/2021 Pneumococcal Polysaccharide PPV23 (Pneumovax) 07/21/2009 Seasonal [...] Miscellaneous Notes * Telephone Encounter - Christopher Almonte MD - 10/16/2023 4:35 PM EDT Patient can be placed on standby list or offered sooner appointment in [place] with physician media center assistant. Thanks, HM * Telephone Encounter - Shahla Pan RN - 10/16/2023 4:16 PM EDT Called patient back, informed her of the orders placed for a urine specimen. She lives in [place], she could not be here before the lab closes. She has an appointment with gastroenterology tomorrow, she will do the urine specimen tomorrow whenat that clinic. Asked if Li sent the script in for the lidocaine patches? Informed her NO. States at the [employer] store, it is over $4 for 1-2 [...] says 'thank you'. * Telephone Encounter - KoLi bach PA-C - 10/16/2023 2:37 PM EDT She [...] AM EDT I will send Rollator thru [facility]. Can can you talk to her about [...] a "lightweight" rollator, to be sent to [facility]. Needs elton lightweight due to her size/weight. 2) asking for a script for the lidocaine patches for her right shoulder pain. States they helped [facility]. Thank you. documented in this encounter Plan of Treatment Upcoming Encounters Date Type Department Care Team (Late st Contact Info) Description 10/17/2023 3:20 PM EDT Office Visit Gastroenterology, [facility] [address] [place] [address] Milind Yadav MD [address] [place] [address] 10/23/2023 9:20 AM EDT Office Visit Neurology [facility] [place] 200 [facility] [place] [address] Aris Mohr MD 200 [facility] [place] [address] 11/08/2023 10:20 AM EDT Office Visit Family Medicine [address] [place] [phone] Evelyn Andrews MD [address] [place] [address] [place] [address] 12/04/2023 3:45 PM EDT Office Visit Urology, [facility] 132 [facility] [place] [address] Christopher Almonte MD 27 [facility] [address] [place] [address] Scheduled Orders Name Type Priority Associated Diagnoses Orde r Schedule URINALYSIS, REFLEX TO MICROSCOPIC Lab Routine Dysuria Expected: 10/16/2023, Expires: 10/15/2024 CULTURE, URINE, QUANTITATIVE Lab Routine Dysuria Expected: 10/16/2023, Expires: 10/15/2024 Health Maintenance Due Date Last Done Comments [...] 024, 08/23/2022, 09/20/2021 CKD HGB USE SMARTSET 51339 10/08/202410/08, 10/06/2023, 10/05/2023, Additional history exists CKD PHOS USE SMARTSET 56229 10/09/202409/24, 10/09/2023, 10/08/2023, Additional history exists DTaP,Tdap,and [...] this encounter Medical Devices Implanted Type Area Hydropress Operator Device Identifier Shelf Expiration Date Model / Serial / Lot Stent Axios 20mm - [id number] Implanted:Qty: 1 on 01/04/2021 by Leyda Garcia MD at OR [facility] N/A: Stomach [employer] : ENDOSCOPY 11/20/2021 [id number] / / [id number] documented as of this encounter Visit Diagnoses Diagnosis Severe protein-energy malnutrition (HCC)- Primary Other severe protein-calorie malnutrition Dysuria documented in this encounter Advance Directives Documents on File Type Date Recorded Patient Insulation Cupola Operator Expl anation POLST 01/03/2022 [place] OR [facility] FOR LIFE-SUSTAINING TREATMENT Latest Code Status [...] Other - (no specific identity) Health Care Insulation Cupola Operator (appointed verbally by patient or by statute hierarchy) Rowdy Kraus Health Care Insulation Cupola Operator (appointed verbally by patient or by statute hierarchy) Care Teams Tire Changer Relationship Specialty Start Date End Date Evelyn Andrews MD [address] [place] [address] [place] [address] PCP - General Family Medicine 05/04/18 documented as of this encounter
--- OUTSIDE RECORDS SUMMARY | 2023-12-07 18:30 | External Medical Summary | Summary of Care ---
Author Name Unknown Organization [facility] Address [address] [place] [address] Phone [phone] Care Team Providers Care Chemical Process Operator Name Role Phone Evelyn Andrews MD Primary Care Prov ider Reason for Visit * Reason Onset Date Comments case management 10/11/2023 Advice 10/11/2023 Encounter Details Date Type Department Care Team (Late st Contact Info) Description 10/11/2023 Telephone Care Coordination and Integration [address] [place] [address] Shahla Pan RN [address] [place], [place] [phone] case management; Advice Allergies Active Allergy Reactions [...] Cough. 120 mL 0 4 Active Nystatin 816052 UNIT/GM External Cream APPLY TO AFFECTED AREA [...] FOR MIGRAINE. 10 Tablet 5 4 Active Cbzpzmgjhm-AMVG-Niqh eine 50-325-40 MG Oral Tablet (Fioricet)Indication s:Migraine [...] 4 11/09/19 24 Active Ergocalciferol 1.25 MG (97817 UT) Oral Capsule (Vitamin D2(Drisdol)) Take 1 [...] HI (myocardial infarction) 03/01/2023 03/01/2023 Atherosclerosis of [place] co ronary artery without angina pectoris 02/08/2022 [...] malnutrition 09/28/2018 09/23/2021 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/2021 WATCHER LOOKOUT TOWER 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 02/06/2017 05/02/2018 WATCHER LOOKOUT TOWER 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 02/06/2017 07/09/2019 Iron deficiency anemia 06/28/201109/20 [...] mRNA, LNP-s, No Pre serve, 2-Dose Series ([employer]) 02/16/2021,11/25/2020,11/01/2020 COVID-19, MRNA-LNP, 23-24, P F, 30 MCG/0.3 mL, 12 YRS AND ABOVE, IM (PFIZER-Comirnaty) 04/10/2023 Covid-19, Mrna, Lnp-s, Pf, B ivalent, 30 Mcg, IM, 12 yrs and above (Pfizer) 04/12/2022 Pneumococcal Conjugate Vacci ne, 20-valent ([id number]) 12/10/2021 Pneumococcal Polysaccharide PPV23 (Pneumovax) 07/21/2009 Seasonal [...] standby list or offered sooner appointment in [place] with physician instruction assistant principal. Thanks, HM * Telephone Encounter - Shahla Pan RN - 10/16/2023 4:16 PM EDT Called patient back, informed her of the orders placed for a urine specimen. She lives in [place], she could not be here before the lab closes. She has an appointment with gastroenterology tomorrow, she will do the urine specimen tomorrow whenat that clinic. Asked if Li sent the script in for the lidocaine patches? Informed her NO. States at the [employer] store, it is over $4 for 1-2 [...] AM EDT I will send Rollator thru [facility]. Can can you talk to her [...] a "lightweight" rollator, to be sent to [facility]. Needs elton lightweight due to her size/weight. 2) asking for a script for the lidocaine patches for her right shoulder pain. [facility] Thank you. documented in this encounter Plan of Treatment Upcoming Encounters Date Type Department Care Team (Late st Contact Info) Description 10/17/2023 3:20 PM EDT Office Visit Gastroenterology, [facility] [address] [place] [address] Milind Yadav MD [address] [place] [address] 10/23/2023 9:20 AM EDT Office Visit Neurology [facility] [place] 200 [facility] [place] [address] Aris Mohr MD 200 [facility] [place] [address] 11/08/2023 10:20 AM EDT Office Visit Family Medicine [address] [place] [phone] Evelyn Andrews MD [address] [place] [address] [place] [address] 12/04/2023 3:45 PM EDT Office Visit Urology, [facility] 132 [facility] [place] [address] Christopher Almonte MD 27 [facility] [address] [place] [address] Scheduled Orders Name Type Priority Associated Diagnoses [...] 024, 08/23/2022, 09/20/2021 CKD HGB USE SMARTSET 45977 10/08/202410/08, 10/06/2023, 10/05/2023, Additional history exists CKD PHOS USE SMARTSET 51840 10/09/202409/24, 10/09/2023, 10/08/2023, Additional history exists DTaP,Tdap,and [...] this encounter Medical Devices Implanted Type Area Finishing Range Operator Device Identifier Shelf Expiration Date Model / Serial / Lot Stent Axios 20mm - [id number] Implanted:Qty: 1 on 01/04/2021 by Leyda Garcia MD at OR [facility] N/A: Stomach [employer] : ENDOSCOPY 11/20/2021 [id number] / / [id number] documented as of this encounter Visit Diagnoses Diagnosis Severe protein-energy malnutrition (HCC)- Primary Other severe protein-calorie malnutrition Dysuria documented in this encounter Advance Directives Documents on File Type Date Recorded Patient Yard Switcher Expl anation POLST 01/03/2022 [place] OR [facility] FOR LIFE-SUSTAINING TREATMENT Latest Code Status on [...] Other - (no specific identity) Health Care Yard Switcher (appointed verbally by patient or by statute hierarchy) Rowdy Kraus Health Care Yard Switcher (appointed verbally by patient or by statute hierarchy) Care Teams Chemical Process Operator Relationship Specialty Start Date End Date Evelyn Andrews MD [address] [place] [address] [place] [address] PCP - General Family Medicine 05/04/18 documented as of this encounter
--- OUTSIDE RECORDS SUMMARY | 2023-12-07 18:30 | External Medical Summary ---
Author Name Unknown Address Unknown Organization [facility] [address] [place] [address] Laboratory Report Ordering Provider Test Date Status GRACIELA VAZQUEZ 10/17/2023 15:15:59 Final Observation Date Value Abnormality Reference (Units ) Status Color of Urine by Auto 10/17/2023 15:15:59 Yellow Final Clarity, Urine 10/17/2023 15:15:59 Slightly Cloudy Final Glucose [Mass/volume] in Urine by Automated test strip 10/17/2023 15:15:59 Negative (mg/dL) Final Bilirubin.total [Presence] in Urine by Automated test strip 10/17/2023 15:15:59 Negative Final Ketones [Mass/volume] in Urine by Automated test strip 10/17/2023 15:15:59 Negative (mg/dL) Final Specific gravity, Urine 10/17/2023 15:15:59 1.025 1.003-1.030 Final Hemoglobin [Presence] in Urine by Automated test strip 10/17/2023 15:15:59 Trace-intact Final pH, Urine 10/17/2023 15:15:59 5.5 5.0-7.5 (Units) Final Protein [Mass/volume] in Urine by Automated test strip 10/17/2023 15:15:59 Trace (mg/dL) Final Urobilinogen [Mass/volume] in Urine by Automated test strip 10/17/2023 15:15:59 0.2 (mg/dL) Final Nitrite [Presence] in Urine by Automated test strip 10/17/2023 15:15:59 Negative Negative Final Leukocyte esterase [Presence] in Urine by Automated test strip 10/17/2023 15:15:59 Trace Abnormal Negative Final RBC, Urine 10/17/2023 15:15:59 6-9 Abnormal 0-2 (/HPF) Final WBC, Urine 10/17/2023 15:15:59 20-29 Abnormal 0-2 (/HPF) Final Bacteria [#/area] in Urine sediment by Microscopy high power field 10/17/2023 15:15:59 101-150 Abnormal 0-25 (/HPF) Final Epithelial cells.squamous [#/area] in Urine sediment by Microscopy high power field 10/17/2023 15:15:59 Many Abnormal None (/HPF) Final Performing Location [facility] [facility] [address]
--- OUTSIDE RECORDS SUMMARY | 2023-12-07 18:30 | External Medical Summary | Summary of Care ---
Author Name Unknown Organization [facility] Address [address] [place] [address] Phone [phone] Care Team Providers Care Manager Risk Name Role Phone Evelyn Andrews MD Primary Care Prov ider Reason for Visit * Reason Comments Follow Up Follow up for abdomi na pain Encounter Details Date Type Department Care Team (Late st Contact Info) Description 10/17/2023 3:20 PM EDT Office Visit Gastroenterology, [facility] [address] [facility] [place] [address] Milind Yadav MD 132 [facility] [place] [address] Diarrhea due to malabsorption*; Dysuria Allergies Active Allergy Reactions Criticality Noted Date [...] Cough. 120 mL 0 06/28/2023 Active Nystatin 226304 UNIT/GM External Cream APPLY TO AFFECTED AREA [...] FOR MIGRAINE. 10 Tablet 5 09/18/2023 Active Ypfrnaipoj-RKRR-Zbqg eine 50-325-40 MG Oral Tablet (Fioricet)Indication s:Migraine [...] 10/10/2023 11/09/19 24 Active Ergocalciferol 1.25 MG (74769 UT) Oral Capsule (Vitamin D2(Drisdol)) Take 1 [...] Noted Date Diagnosed Date Resolved Date Old [place] (myocardial infarction) 03/01/2023 03/01/2023 Atherosclerosis of [place] co ronary artery without angina pectoris 02/08/2022 [...] malnutrition 09/28/2018 09/23/2021 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/2021 AGRICULTURAL AGENT 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 02/06/2017 05/02/2018 AGRICULTURAL AGENT 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 02/06/2017 07/09/2019 Iron deficiency anemia 06/28/201109/20 [...] mRNA, LNP-s, No Pre serve, 2-Dose Series (Knowta) 02/16/2021,11/25/2020,11/01/2020 COVID-19, MRNA-LNP, 23-24, P F, 30 MCG/0.3 mL, 12 YRS AND ABOVE, IM (PFIZER-Comirnaty) 04/10/2023 Covid-19, Mrna, Lnp-s, Pf, B ivalent, 30 Mcg, IM, 12 yrs and above (Pfizer) 04/12/2022 Pneumococcal Conjugate Vacci ne, 20-valent (Ysiktqy10) 12/10/2021 Pneumococcal Polysaccharide PPV23 (Pneumovax) 07/21/2009 Seasonal [...] Sign Reading Time Taken Comments Blood Pressure 112/58 10/17/2023 3:25 PM EDT Pulse 90 10/17/2023 3:25 PM EDT Temperature 36.6 C (97.9 F) 10/17/2023 3:25 PM ED T Respiratory Rate - - Oxygen Saturation 98% 10/17/2023 3:25 PM EDT Inhaled Oxygen Concentration - - Weight 38.9 kg (85 lb 11.2 oz) 10/17/2023 3:25 P M EDT Height 149.9 cm (4' 11") 10/17/2023 3:25 PM EDT Body Mass Index 17.31 10/17/2023 3:25 PM EDT documented in this [...] as of this encounter Progress Notes * Milind Yadav MD - 10/17/2023 5:15 PM EDT 58 yo female with 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 10/17 Recent admission for initation of TPN, which she subsequently refused. SHe has pain in R flank, loose stool 2-3 x a day. She does not want TPN. Her appetite is poor, with 2 meals per day on Remeron and ZYprexa. BP 112/58 (BP Site: Left Arm, BP Position: Sitting, BP Cuff Size: Regular) | Pulse 90 | Temp 36.6 C (97.9 F) (Tympanic) | Ht 1.499 m (4' 11") | Wt 38.9 kg (85 lb 11.2 oz) | LMP 04/05/2007 | SpO2 98% | BMI 17.31 kg/m | BSA 1.27 m GENERAL: frail, older than stated age. Kyphotic, needs wheel chair. SKIN: no rashes, ulcers, or spider angiomata ABDOMEN: non-tender without guarding or rebound, soft, normo-active bowel sounds, no masses, no hepatosplenomegaly, no rebound or guarding, no bruits EXTREMITIES: no palmar erythema, no edema, no skin discoloration, no clubbing, no cyanosis NEURO: no lateralizing findings, Sensory/Motor grossly normal ASSESSMENT/PLAN: Malnutrition related to gastric bypass - I have encouraged her to resume TPN. Unfortunately, I have no other althernatives that would be helpful for her. Her diarrhea may in part be related to zinc deficiency, WIll defer micronutrient monitoring to nutrition service. - Discontinue cholestyramine, as this may aggravate fat malabsorption. Lomotil for diarrhea. Milind Yadav MD documented in this encounter Nursing Notes * Dorian Hobson CMA - 10/17/2023 3:25 PM EDT Chief Complaint Patient presents with Follow Up Follow up for abdomina pain Chandrika Hogue is a 58 year old female who presents today for a follow up. She states that she was at [facility] on 09/20/2023 and she was discharged 10/10/2023. Se states that she has rightlower quadrant abdominal pain and back pain that began on Monday and is getting worse. She also hasdiarrhea and frequent urination. She denies blood in her stool. She has some rapid weight loss. documented in this encounter Plan of Treatment Upcoming Encounters Date Type Department Care Team (Late st Contact Info) Description 10/23/2023 9:20 AM EDT Office Visit [facility] [address] [facility] [place] [address] Aris Mohr MD [address] [facility] [place] [address] 11/08/2023 10:20 AM EDT Office Visit Family Medicine [address] [place] [phone] Evelyn Andrews MD [address] [place] [address] [place] [address] 12/04/2023 3:45 PM EDT Office Visit Urology, [facility] [address] [facility] [place] [address] Christopher Almonte MD [address] [facility] [address] [place] [address] Pending Results Name Type Priority Associated Diagnoses Date /Time CULTURE, URINE, QUANTITATIVE Lab Routine Dysuria 10/17/2023 3:15 PM EDT Health Maintenance Due Date Last Done Comments [...] 024, 08/23/2022, 09/20/2021 CKD HGB USE SMARTSET 53165 10/08/202410/08, 10/06/2023, 10/05/2023, Additional history exists CKD PHOS USE SMARTSET 80711 10/09/202409/24, 10/09/2023, 10/08/2023, Additional history exists DTaP,Tdap,and [...] this encounter Medical Devices Implanted Type Area Assembler Lay Ups Device Identifier Shelf Expiration Date Model / Serial / Lot Stent Axios 20mm - [id number] Implanted:Qty: 1 on 01/04/2021 by Leyda Garcia MD at OR [facility] N/A: Stomach [employer] : ENDOSCOPY 11/20/2021 [id number] / / [id number] documented as of this encounter Procedures Procedure Name Priority Date/Time Associated Diagnosis Comments URINALYSIS, REFLEX TO MICROSCOPIC Routine 10/17/2023 3:15 PM EDT Dysuria documented in this encounter Results * (ABNORMAL) URINALYSIS, REFLEX TO MICROSCOPIC (10/17/2023 [...] PM EDT [facility] [place] 57-10 Specific [place], Urine 1.025 1.003 - 1.030 10/17/2023 3:45 PM EDT [facility] 57-10 Blood, Urine Trace-intact 10/17/2023 3:45 PM EDT [facility] [place] 57-10 pH, Urine 5.5 5.0 - 7.5 Units 10/17/2023 3:45 PM EDT [facility] 57-10 Protein, Urine Trace mg/dL 10/17/2023 3:45 PM EDT [facility] [place] 57-10 Urobilinogen, Urine 0.2 mg/dL 10/17/2023 3:45 PM EDT [facility] 57-10 Nitrite, Urine Negative Negative 10/17/2023 3:45 PM EDT [facility] 57-10 Esterase, Urine Trace(A) Negative 10/17/2023 3:45 PM EDT [facility] 57-10 RBC, Urine 6-9(A) 0 - 2 /HPF 10/17/2023 3:45 PM EDT [facility] 57-10 WBC, Urine 20-29(A) 0 - 2 /HPF 10/17/2023 3:45 PM EDT [facility] [place] 57-10 Bacteria, Urine 101-150(A) 0 - 25 /HPF 10/17/2023 3:45 PM EDT [facility] 57-10 Squamous Epithelial Cells, Urine Many(A) None /HPF 10/17/2023 3:45 PM EDT [facility] 57-10 Urine Urine specimen obtained by clean catch procedure / Unknown Non-blood Collection / Unknown 10/17/2023 3:15 PM EDT 10/17/2023 3:15 PM EDT Li Cano PA-C LAB URINE ORDERABL ES [facility] [place] [address] [facility] [place] [address] documented in this encounter Visit Diagnoses Diagnosis Diarrhea due to malabsorption- Primary Dysuria documented in this encounter Advance Directives Documents on File Type Date Recorded Patient Manager Utilization Expl surekha POL 01/03/2022 [place] [facility] Latest Code [...] Other - (no specific identity) Health Care Manager Utilization (appointed verbally by patient or by statute hierarchy) Rowdy Mykel Sibling Health Care Manager Utilization (appointed verbally by patient or by statute hierarchy) Care Teams Manager Risk Relationship Specialty Start Date End Date Evelyn Andrews MD [address] [place] [address] [place] [address] PCP - General Family Medicine 05/04/18 documented as of this encounter
--- OUTSIDE RECORDS SUMMARY | 2023-12-07 18:30 | External Medical Summary ---
Author Name Unknown Address Unknown Organization K01:LABORATORY [facility] - [address] [facility] [facility] [address] Laboratory Report Ordering Provider Test Date Status USHA VAZQUEZJEFFERY 10/17/2023 15:15:44 Final <10,000 colonies/ml mixed no rmal ravindra Observation Date Value Abnormality Reference (Units ) Status Bacteria identified in Specimen by Culture 10/17/2023 15:15:44 [id number]^ENTEROC OCCUS SPECIES Abnormal Final >100,000 colonies/mL Enteroc occus species Performing Location LAB[facility]ATORY [facility] - [address] [facility] [place] [address] Ordering Provider Test Date Status TAYLOR,KOJEFFERY 10/17/2023 15:15:44 Final Observation Date Value Abnormality Reference (Units ) Status Ampicillin 10/17/2023 15:15:44 16 Resistant Final Nitrofurantoin susceptibility 10/17/2023 15:15:44 64 Intermediate Final Tetracyclinesusceptibility 10/17/2023 15:15:44 >=16 Resistant Final Vancomycinsusceptibility 10/17/2023 15:15:44 <=0.5 Susceptible Final Test: Culture, Urine, Quanti tative
Specimen Source: Urine, Clean Catch
Specimen Type: Urine
Specimen Date: 10/17/2023 3:15 PM
Result Date: 10/20/2023 10:58 AM
Result Status: Final result
Abnormal: Yes
Resulting Lab: [facility]ATORY [facility]
[address] [facility] [address]

CULTURE

>100,000 colonies/mL Enterococcus species (Abnormal)

<10,000 colonies/ml mixed normal ravindra

SUSCEPTIBILITY

Enterococcus
species
METHOD MICROBROTH
DILUTIONS

AMPICILLIN 16 Resistant
NITROFURANTOIN 64 Intermediate
TETRACYCLINE >=16 Resistant
VANCOMYCIN <=0.5 Susceptible

null Performing Location LABORATORY [facility] - [address] [facility] [address]
--- OUTSIDE RECORDS SUMMARY | 2023-12-07 18:30 | External Medical Summary | Summary of Care ---
Author Name Unknown Organization [facility] Address [address] [place] [address] Phone [phone] Care Team Providers Care Manager Universal Name Role Phone Evelyn Andrews MD Primary Care Prov ider Reason for Visit * Reason Onset Date Comments case management 10/11/2023 Advice 10/11/2023 Encounter Details Date Type Department Care Team (Late st Contact Info) Description 10/11/2023 Telephone Care Coordination and Integration [address] [place] [address] Shahla Pan RN [address], [place] [phone] case management; Advice Allergies Active Allergy Reactions [...] Cough. 120 mL 0 4 Active Nystatin 759936 UNIT/GM External Cream APPLY TO AFFECTED AREA [...] FOR MIGRAINE. 10 Tablet 5 4 Active Cjmhugvsca-MVPD-Cplz eine 50-325-40 MG Oral Tablet (Fioricet)Indication s:Migraine [...] 4 11/09/19 24 Active Ergocalciferol 1.25 MG (33023 UT) Oral Capsule (Vitamin D2(Drisdol)) Take 1 [...] [place] (myocardial infarction) 03/01/2023 03/01/2023 Atherosclerosis of [place] co ronary artery without angina pectoris 02/08/2022 [...] 09/28/2018 09/23/2021 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/2021 SUPERVISOR SCREEN MAKING 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 02/06/2017 05/02/2018 SUPERVISOR SCREEN MAKING 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 02/06/2017 07/09/2019 Iron deficiency anemia 06/28/201109/20 [...] mRNA, LNP-s, No Pre serve, 2-Dose Series (Linea) 02/16/2021,11/25/2020,11/01/2020 COVID-19, MRNA-LNP, 23-24, P F, 30 MCG/0.3 mL, 12 YRS AND ABOVE, IM (PFIZER-Comirnaty) 04/10/2023 Covid-19, Mrna, Lnp-s, Pf, B ivalent, 30 Mcg, IM, 12 yrs and above (Pfizer) 04/12/2022 Pneumococcal Conjugate Vacci ne, 20-valent ([id number]) 12/10/2021 Pneumococcal Polysaccharide PPV23 (Pneumovax) 07/21/2009 Seasonal [...] 10/17/2023 1:36 PM EDT Order for Rollator [id number] for Chandrika Hogue (1965) is being fulfilled by [facility]. If you need assistance with this order, please call . * Telephone Encounter - Christopher Almonte MD - 10/16/2023 4:35 PM EDT Patient can be placed on standby list or offered sooner appointment in [place] with physician assistant controller. Thanks, HM * Telephone Encounter - Shahla Pan RN - 10/16/2023 4:16 PM EDT Called patient back, informed her of the orders placed for a urine specimen. She lives in [place], she could not be here before the lab closes. She has an appointment with gastroenterology tomorrow, she will do the urine specimen tomorrow whenat that clinic. Asked if Li sent the script in for the lidocaine patches? Informed her NO. States at the [employer] store, it is over $4 for 1-2 [...] AM EDT I will send Rollator thru [facility]. Can can you talk to her [...] a "lightweight" rollator, to be sent to [facility]. Needs elton lightweight due to her size/weight. 2) asking for a script for the lidocaine patches for her right shoulder pain. States they helped int hospital. Thank you. documented in this encounter Plan of Treatment Upcoming Encounters Date Type Department Care Team (Late st Contact Info) Description 10/17/2023 3:20 PM EDT Office Visit Gastroenterology, [facility] [address] [place] [address] Milind Yadav MD [address] [place] [address] 10/23/2023 9:20 AM EDT Office Visit Neurology [facility] [address] [facility] [place] [address] Aris Mohr MD [address] [facility] [place] [address] 11/08/2023 10:20 AM EDT Office Visit Family Medicine [address] [phone] Evelyn Andrews MD [address] [place] [address] [place] [address] 12/04/2023 3:45 PM EDT Office Visit Urology, [facility] [address] [place] [address] Christopher Almonte MD 27 [facility] [address] [place] [address] Scheduled Orders Name Type Priority Associated Diagnoses [...] 024, 08/23/2022, 09/20/2021 CKD HGB USE SMARTSET 15577 10/08/202410/08, 10/06/2023, 10/05/2023, Additional history exists CKD PHOS USE SMARTSET 75233 10/09/202409/24, 10/09/2023, 10/08/2023, Additional history exists DTaP,Tdap,and [...] this encounter Medical Devices Implanted Type Area Food Porter Device Identifier Shelf Expiration Date Model / Serial / Lot Stent Axios 20mm - [id number] Implanted:Qty: 1 on 01/04/2021 by Leyda Garcia MD at OR [facility] N/A: Stomach [employer] : ENDOSCOPY 11/20/2021 [id number] / / [id number] documented as of this encounter Visit Diagnoses Diagnosis Severe protein-energy malnutrition (HCC)- Primary Other severe protein-calorie malnutrition Dysuria documented in this encounter Advance Directives Documents on File Type Date Recorded Patient Specialty Plant Supervisor Expl anation POLST 01/03/2022 [place] [facility]AIN[facility] T[facility]AT[facility] Latest Code [...] Other - (no specific identity) Health Care Specialty Plant Supervisor (appointed verbally by patient or by statute hierarchy) Rowdy Hogue Sibling Health Care Specialty Plant Supervisor (appointed verbally by patient or by statute hierarchy) Care Teams Manager Universal Relationship Specialty Start Date End Date Evelyn Andrews MD [address] [place] [address] [place] [address] PCP - General Family Medicine 05/04/18 documented as of this encounter
--- OUTSIDE RECORDS SUMMARY | 2023-12-07 18:31 | External Medical Summary | Summary of Care ---
Author Name Unknown Organization [facility] Address [address] [place] [address] Phone [phone] Care Team Providers Care Production Planning Supervisor Name Role Phone Evelyn Andrews MD Primary Care Prov ider Reason for Visit * Reason Comments Hospital Follow-Up Encounter Details Date Type Department Care Team (Late st Contact Info) Description 10/11/2023 3:00 PM EDT Office Visit Family Medicine [address] [phone] Li Cano PA-C [address] [place] [address] [place] [phone] Severe protein-energy malnutrition (HCC)* Allergies Active Allergy Reactions Criticality Noted Date Comments Amoxicillin Edema airway High 01/22/2003 Oxybutynin 03/25/2023 Mouth ulcers Sulfa Antibiotics Edema airway High 08/15/2006 documented as of this encounter (statuses as of 10/11/2023) Medications Medication Sig Dispensed Refills Start Date [...] Cough. 120 mL 0 06/28/2023 Active Nystatin 572756 UNIT/GM External Cream APPLY TO AFFECTED AREA [...] FOR MIGRAINE. 10 Tablet 5 09/18/2023 Active Bvjewryvwa-VYLP-Mqby eine 50-325-40 MG Oral Tablet (Fioricet)Indication s:Migraine [...] 30 Tablet 0 10/10/2023 11/09/19 24 Active oxyCODONE HCl 5 MG Oral Tablet (Oxy IR) Take 1 Tablet by mouth every 6 hours as needed for Pain, Breakthrough or Pain, Severe for up to 3 days. 12 Tablet 0 10/10/2023 10/13/19 24 Active Ascorbic Acid 250 MG Oral [...] 10/10/2023 11/09/19 24 Active Ergocalciferol 1.25 MG (65525 UT) Oral Capsule (Vitamin D2(Drisdol)) Take 1 Capsule by mouth once a day on Monday, Monday, and Monday only. 12 Capsule 0 10/10/2023 11/09/19 24 Active busPIRone HCl 5 MG Oral Tablet (Buspar) Take 1 Tablet by mouth in the morning and 1 Tablet at noon and 1 Tablet before bedtime. 90 Tablet 0 10/10/2023 11/09/19 24 Active documented as of this encounter (statuses as of 10/11/2023) Active Problems Problem Noted Date Diagnosed Date [...] as of this encounter (statuses as of 10/11/2023) Resolved Problems Problem Noted Date Diagnosed Date Resolved Date Old [place] (myocardial infarction) 03/01/2023 03/01/2023 Atherosclerosis of [place] ronary artery without angina pectoris 02/08/2022 [...] malnutrition 09/28/2018 09/23/2021 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/2021 INSTRUMENT TECHNICIAN APPRENTICE 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 02/06/2017 05/02/2018 INSTRUMENT TECHNICIAN APPRENTICE 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 02/06/2017 07/09/2019 Iron deficiency anemia 06/28/201109/20 Overview: ICD-10 update of inactive term Iron deficiency anemia 06/28/201109/20 Overview: ICD-10 update of inactive term Iron deficiency anemia pat paulino to inadequate dietary iron intake 09/26/2008 3 Infected postoperative seroma 06/02/2003 09/20/2012 PANNICULITIS, UNSP SITE 05/14/2003 09/0 11/2022 documented as of this encounter (statuses as of 10/11/2023) Immunizations Name Administration Dates Next Due COVID-19 mRNA, LNP-s, No Pre serve, 2-Dose Series (Dahu) 02/16/2021,11/25/2020,11/01/2020 COVID-19, MRNA-LNP, 23-24, P F, 30 MCG/0.3 mL, 12 YRS AND ABOVE, IM (PFIZER-Comirnaty) 04/10/2023 Covid-19, Mrna, Lnp-s, Pf, B ivalent, 30 Mcg, IM, 12 yrs and above (Pfizer) 04/12/2022 Pneumococcal Conjugate Vacci ne, 20-valent ([id number]) 12/10/2021 Pneumococcal Polysaccharide PPV23 (Pneumovax) 07/21/2009 Seasonal [...] Sign Reading Time Taken Comments Blood Pressure 110/60 10/11/2023 3:15 PM EDT Pulse 68 10/11/2023 3:15 PM EDT Temperature 36.2 C (97.1 F) 10/11/2023 3:15 PM ED T Respiratory Rate 16 10/11/2023 3:15 PM EDT Oxygen Saturation - - Inhaled Oxygen Concentration - - Weight 40.6 kg (89 lb 9.6 oz) 10/11/2023 3:15 PM EDT Height - - Body Mass Index 18.1 09/20/2023 12:49 PM EDT documented in this encounter Functional [...] as of this encounter Progress Notes * Li Cano PA-C - 10/11/2023 3:19 PM EDT Nursing Notes: Cary Sheppard RN 10/11/23 7500 Sign at exiting of workspace [facility] follow up D/C yesterday, pt already lost 1 lb. Pt has been a little dizzy since she got home Pt here today for hospital FU. She was admitted to get her started on a TPN regimen. She was down to 73 lbs. She was dc'd and her weight was 92 lbs. She is down to 89 lbs today. She is trying to eat.She had mac n cheese today. She can't drink regular boost or ensure because it is too thick. She isdrinking boost breeze. She is in contact with Dr. Wilkerson. According to the notes, pt refused any more TPN. She states that it interrupts her life too much. She did keep her port. She isn't opposed to getting started back on TPN, at some point. She wants to try to eat on her own. Pt has no issues at this time. Just had labs yesterday and kidney function was ok. Review of patient's allergies indicates: Allergen Reactions Amoxicillin Edema airway Sulfa Antibiotics Edema airway Oxybutynin Mouth ulcers Current Outpatient Medications Medication Sig Dispense Refill [...] needed for Cough. 120 mL 0 Nystatin 117207 UNIT/GM External Cream APPLY TO AFFECTED AREA [...] DAILY NEEDED FOR MIGRAINE. 10 Tablet 5 Kgtmkilpsp-FOLO-Axybehcr 50-325-40 MG Oral Tablet (Fioricet) TAKE ONE [...] by mouth daily at noon. 30 Tablet0 oxyCODONE HCl 5 MG Oral Tablet (Oxy IR) Take 1 Tablet by mouth every 6 hours as needed for Pain, Breakthrough or Pain, Severe for up to 3 days. 12 Tablet 0 Ascorbic Acid 250 MG Oral Tablet Take [...] morning. 30 Packet 0 Ergocalciferol 1.25 MG (53708 UT) Oral Capsule (Vitamin D2(Drisdol)) Take 1 Capsule by mouth once aday on Monday, Monday, and Monday only. 12 Capsule 0 busPIRone HCl 5 MG Oral Tablet (Buspar) Take 1 Tablet by mouth in the morning and 1 Tablet at noon and 1 Tablet before bedtime. 90 Tablet 0 No current facility-administered medications for this visit. 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 rate 16, weight 40.6 kg (89 lb 9.6 oz), last menstrual period 04/05/2007. GENERAL: alert, healthy, and no distress HEART: regular rate & rhythm, no murmur, and no gallops LUNGS: chest symmetric with normal AP diameter, no chest deformities noted, no chest wall tenderness, lungs clear to auscultation A:Severe protein-energy malnutrition (HCC) (Primary) Discussed with pt that she needs to keep a close eye on her weight. She will keep in contact with Dr. Wilkerson. She has upcoming neuro, GI appts. She will reschedule with psych. We also gave her the name and email of a counselor. She will get in contact with her. Any questions/problems, please call. If anything changes, worsens, develops new sx, please call EMELIA. Follow Up: Return if symptoms worsen or fail to improve. Li Cano PA-C documented in this encounter Nursing Notes * Cary Sheppard, RN - 10/11/2023 3:14 PM EDT [facility] follow up D/C yesterday, pt already lost 1 lb. Pt has been a little dizzy since she got home documented in this encounter Plan of Treatment Upcoming Encounters Date Type Department Care Team (Late st Contact Info) Description 10/17/2023 3:20 PM EDT Office Visit Gastroenterology, [facility] [address] [place] [address] Milind Yadav MD [address] [place] [address] 10/23/2023 9:20 AM EDT Office Visit Neurology [facility] [address] [facility] [place] [address] Aris Mohr MD [address] [facility] [place] [address] 11/08/2023 10:20 AM EDT Office Visit Family Medicine [address] [place] [phone] Evelyn Andrews MD [address] [place] [address] [place] [address] 12/04/2023 3:45 PM EDT Office Visit Urology, [facility] [address] [place] [address] Christopher Almonte MD [address] [facility] [place] [address] [place] [address] Health Maintenance Due Date Last Done Comments [...] 024, 08/23/2022, 09/20/2021 CKD HGB USE SMARTSET 26104 10/08/202410/08, 10/06/2023, 10/05/2023, Additional history exists CKD PHOS USE SMARTSET 50410 10/09/202409/24, 10/09/2023, 10/08/2023, Additional history exists DTaP,Tdap,and [...] this encounter Medical Devices Implanted Type Area Link Knitting Machine Operator Device Identifier Shelf Expiration Date Model / Serial / Lot Stent Axios 20mm - [id number] Implanted:Qty: 1 on 01/04/2021 by Leyda Garcia MD at OR [facility] N/A: Stomach [employer] : ENDOSCOPY 11/20/2021 [id number] / / [id number] documented as of this encounter Visit Diagnoses Diagnosis Severe protein-energy malnutrition (HCC)- Primary Other severe protein-calorie malnutrition documented in this encounter Advance Directives Documents on File Type Date Recorded Patient Logistics Operations Manager Expl anation POLST 01/03/2022 [place] OR [facility] FOR LIFE-SUSTAINING TREATMENT Latest Code Status [...] Other - (no specific identity) Health Care Logistics Operations Manager (appointed verbally by patient or by statute hierarchy) Rowdy Hogue Sibling Health Care Logistics Operations Manager (appointed verbally by patient or by statute hierarchy) Care Teams Production Planning Supervisor Relationship Specialty Start Date End Date Evelyn Andrews MD [address] [place] [address] [place] [address] PCP - General Family Medicine 05/04/18 documented as of this encounter
--- OUTSIDE RECORDS SUMMARY | 2023-12-07 18:31 | External Medical Summary | Summary of Care ---
Author Name Unknown Organization [facility] Address [address] [place] [address] Phone [phone] Care Team Providers Care Photo Colorer Name Role Phone Evelyn Andrews MD Primary Care Prov ider Reason for Visit * Reason Onset Date Comments case management 10/11/2023 Advice 10/11/2023 Encounter Details Date Type Department Care Team (Late st Contact Info) Description 10/11/2023 Telephone Care Coordination and Integration [address] [place] [address] Shahla Pan RN [address], [place] [phone] case management; Advice Allergies Active Allergy Reactions Criticality Noted Date Comments Amoxicillin Edema airway High 01/22/2003 Oxybutynin 03/25/2023 Mouth ulcers Sulfa Antibiotics Edema airway High 08/15/2006 documented as of this encounter (statuses as of 10/16/2023) Medications Medication Sig Dispensed Refills Start Date [...] Cough. 120 mL 0 4 Active Nystatin 910363 UNIT/GM External Cream APPLY TO AFFECTED AREA [...] FOR MIGRAINE. 10 Tablet 5 4 Active Qhudyaphgk-XHDI-Whbl eine 50-325-40 MG Oral Tablet (Fioricet)Indication s:Migraine [...] 4 11/09/19 24 Active Ergocalciferol 1.25 MG (80138 UT) Oral Capsule (Vitamin D2(Drisdol)) Take 1 [...] as of this encounter (statuses as of 10/16/2023) Active Problems Problem Noted Date Diagnosed Date [...] as of this encounter (statuses as of 10/16/2023) Resolved Problems Problem Noted Date Diagnosed Date Resolved Date Old [place] (myocardial infarction) 03/01/2023 03/01/2023 Atherosclerosis of [place] ronary artery without angina pectoris [...] malnutrition 09/28/2018 09/23/2021 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/2021 SHAPING MACHINE TENDER 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 02/06/2017 05/02/2018 SHAPING MACHINE TENDER 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 02/06/2017 07/09/2019 Iron deficiency anemia 06/28/201109/20 Overview: ICD-10 update of inactive term Iron deficiency anemia 06/28/201109/20 Overview: ICD-10 update of inactive term Iron deficiency anemia pat paulino to inadequate dietary iron intake 09/26/2008 3 Infected postoperative seroma 06/02/2003 09/20/2012 PANNICULITIS, UNSP SITE 05/14/2003 09/0 11/2022 documented as of this encounter (statuses as of 10/16/2023) Immunizations Name Administration Dates Next Due COVID-19 mRNA, LNP-s, No Pre serve, 2-Dose Series ([employer]) 02/16/2021,11/25/2020,11/01/2020 COVID-19, MRNA-LNP, 23-24, P F, 30 MCG/0.3 mL, 12 YRS AND ABOVE, IM (PFIZER-Comirnaty) 04/10/2023 Covid-19, Mrna, Lnp-s, Pf, B ivalent, 30 Mcg, IM, 12 yrs and above (Pfizer) 04/12/2022 Pneumococcal Conjugate Vacci ne, 20-valent (Iffheci27) 12/10/2021 Pneumococcal Polysaccharide PPV23 (Pneumovax) 07/21/2009 Seasonal [...] standby list or offered sooner appointment in [place] with physician religious assistant. Thanks, HM * Telephone Encounter - Shahla Pan RN - 10/16/2023 4:16 PM EDT Called patient back, informed her of the orders placed for a urine specimen. She lives in [place], she could not be here before the lab closes. She has an appointment with gastroenterology tomorrow, she will do the urine specimen tomorrow whenat that clinic. Asked if Li sent the script in for the lidocaine patches? Informed her NO. States at the [employer] store, it is over $4 for 1-2 patches. If she gets them from the mail order pharmacy, they are cheap to free. Asking please to have the lidocaine patches sent to the mail order pharmacy, plus they will deliverto her. Asking me to send message to her PCP, "Eevlyn". CM will do. CM also to let [...] AM EDT I will send Rollator thru [facility]. Can can you talk to her about [...] a "lightweight" rollator, to be sent to [facility]. Needs elton lightweight due to her size/weight. 2) asking for a script for the lidocaine patches for her right shoulder pain. States they helped [facility]. Thank you. documented in this encounter Plan of Treatment Upcoming Encounters Date Type Department Care Team (Late st Contact Info) Description 10/17/2023 3:20 PM EDT Office Visit Gastroenterology, [facility] [address] [place] [address] Milind Yadav MD [address] [place] [address] 10/23/2023 9:20 AM EDT Office Visit Neurology [facility] [place] [address] [facility] [place] [address] Aris Mohr MD [address] [facility] [place] [address] 11/08/2023 10:20 AM EDT Office Visit Family Medicine [address] [place] [phone] Evelny Andrews MD [address] [place] [address] [place] [address] 12/04/2023 3:45 PM EDT Office Visit Urology, [facility] [address] [facility] [place] [address] Christopher Almonte MD [address] [facility] [address] [place] [address] Scheduled Orders Name Type Priority Associated Diagnoses [...] 024, 08/23/2022, 09/20/2021 CKD HGB USE SMARTSET 77974 10/08/202410/08, 10/06/2023, 10/05/2023, Additional history exists CKD PHOS USE SMARTSET 17998 10/09/202409/24, 10/09/2023, 10/08/2023, Additional history exists DTaP,Tdap,and [...] this encounter Medical Devices Implanted Type Area Network Design Architect Device Identifier Shelf Expiration Date Model / Serial / Lot Stent Axios 20mm - [id number] Implanted:Qty: 1 on 01/04/2021 by Leyda Garcia MD at OR [facility] N/A: Stomach [employer] : ENDOSCOPY 11/20/2021 [id number] / / [id number] documented as of this encounter Visit Diagnoses Diagnosis Severe protein-energy malnutrition (HCC)- Primary Other severe protein-calorie malnutrition Dysuria documented in this encounter Advance Directives Documents on File Type Date Recorded Patient Radiology Tech Expl anation POLST 01/03/[address] [place] [address] [facility] [...] Other - (no specific identity) Health Care Radiology Tech (appointed verbally by patient or by statute hierarchy) Rowdy Kraus Health Care Radiology Tech (appointed verbally by patient or by statute hierarchy) Care Teams Photo Colorer Relationship Specialty Start Date End Date Evelyn Andrews MD [address] [place] [address] [place] [address] PCP - General Family Medicine 05/04/18 documented as of this encounter
--- OUTSIDE RECORDS SUMMARY | 2023-12-07 18:31 | External Medical Summary | Summary of Care ---
Author Name Unknown Organization [facility] Address [address] [place] [address] Phone [phone] Care Team Providers Care Systems Test Analyst Name Role Phone Evelyn Andrews MD Primary Care Prov ider Encounter Details Date Type Department Care Team (Late st Contact Info) Description 10/11/2023 Population Health External Data Unspecified Department Allergies [...] Cough. 120 mL 0 06/28/2023 Active Nystatin 769259 UNIT/GM External Cream APPLY TO AFFECTED AREA [...] FOR MIGRAINE. 10 Tablet 5 09/18/2023 Active Kweinrxgvk-IPIU-Vguy eine 50-325-40 MG Oral Tablet (Fioricet)Indication s:Migraine [...] 10/10/2023 11/09/19 24 Active Ergocalciferol 1.25 MG (34938 UT) Oral Capsule (Vitamin D2(Drisdol)) Take 1 [...] [place] (myocardial infarction) 03/01/2023 03/01/2023 Atherosclerosis of [place] co ronary artery without angina pectoris [...] malnutrition 09/28/2018 09/23/2021 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/2021 RUG WASHER 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 02/06/2017 05/02/2018 RUG WASHER 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 02/06/2017 07/09/2019 Iron deficiency anemia 06/28/201109/20 Overview: ICD-10 update of inactive term Iron deficiency anemia 06/28/201109/20 Overview: ICD-10 update of inactive term Iron deficiency anemia pat mor[place]y to inadequate dietary iron intake 09/26/2008 3 Infected postoperative seroma 06/02/2003 09/20/2012 PANNICULITIS, [facility] SITE 05/14/2003 090 11/2022 documented as of this encounter (statuses as of 10/11/2023) Immunizations Name Administration Dates Next Due COVID-19 mRNA, LNP-s, No Pre serve, 2-Dose Series ([email or web address]) 02/16/2021,11/25/2020,11/01/2020 COVID-19, MRNA-LNP, 23-24, P F, 30 MCG/0.3 mL, 12 YRS AND ABOVE, IM (Pricing Assistant-Comirnaty) 04/10/2023 Covid-19, Mrna, Lnp-s, Pf, B ivalent, 30 Mcg, IM, 12 yrs and above (Pfizer) 04/12/2022 Pneumococcal Conjugate Vacci ne, 20-valent ([email or web address]) 12/10/2021 Pneumococcal Polysaccharide PPV23 (Pneumovax) 07/21/2009 Seasonal [...] Yes 09/20/2023 documented as of this encounter Plan of Treatment Upcoming Encounters Date Type Department Care Team (Late st Contact Info) Description 10/11/2023 3:00 PM EDT Office Visit Family [address] [place] [phone] Li Cano PA-C [address] [place] [address] [place] [address] 10/17/2023 3:20 PM EDT Office Visit Gastroenterology, [facility] [address] [address] Milind Yadav MD [address] [facility] [place] [address] 10/23/2023 9:20 AM EDT Office Visit Neurology [facility] [address] [facility] [place] [address] Aris Mohr MD [address] [facility] [place] [address] 11/08/2023 10:20 AM EDT Office Visit Family [address] [place] [phone] Evelyn Andrews MD [address] [place] [address] [place] [address] 12/04/2023 3:45 PM EDT Office Visit Urology, [facility] [address] [place] [address] Christopher Almonte MD [address] [place] [address] [place] [address] Health Maintenance Due Date Last Done Comments [...] 024, 08/23/2022, 09/20/2021 CKD HGB USE SMARTSET 53876 10/08/202410/08, 10/06/2023, 10/05/2023, Additional history exists CKD PHOS USE SMARTSET 03072 10/09/202409/24, 10/09/2023, 10/08/2023, Additional history exists DTaP,Tdap,and [...] this encounter Medical Devices Implanted Type Area Manager Family Device Identifier Shelf Expiration Date Model / Serial / Lot Stent Axios 20mm - [id number] Implanted:Qty: 1 on 01/04/2021 by Leyda Garcia MD at OR [facility] N/A: Stomach [employer] : ENDOSCOPY 11/20/2021 [id number] / / [id number] documented as of this encounter Advance Directives Documents on File Type Date Recorded Patient Janitorial Manager Expl anation POLST 01/03/2022 [place] OR [facility] FOR LIFE-SUSTAINING TREATMENT Latest Code [...] Other - (no specific identity) Health Care Janitorial Manager (appointed verbally by patient or by statute hierarchy) Rowdy Kraus Health Care Janitorial Manager (appointed verbally by patient or by statute hierarchy) Care Teams Systems Test Analyst Relationship Specialty Start Date End Date Obdulio [facility], Evelyn Jovanna, MD [address] [place] [address] [place] [phone] PCP - General Family Medicine 05/04/18 documented as of this encounter
--- OUTSIDE RECORDS SUMMARY | 2023-12-07 18:31 | External Medical Summary | Summary of Care ---
Author Name Unknown Organization [facility] Address [address] [place] [address] Phone [phone] Care Team Providers Care Wine Specialist Name Role Phone Evelyn Andrews MD Primary Care Prov ider Reason for Visit * Reason Onset Date Comments case management 10/11/2023 Advice 10/11/2023 Encounter Details Date Type Department Care Team (Late st Contact Info) Description 10/11/2023 Telephone Care Coordination and Integration [address] [place] [address] Shahla Pan RN [address], [place] [id number] case management; Advice Allergies Active Allergy Reactions [...] Cough. 120 mL 0 4 Active Nystatin 838570 UNIT/GM External Cream APPLY TO AFFECTED AREA [...] FOR MIGRAINE. 10 Tablet 5 4 Active Gkoqjukxhx-FHZS-Wctw eine 50-325-40 MG Oral Tablet (Fioricet)Indication s:Migraine [...] 4 11/09/19 24 Active Ergocalciferol 1.25 MG (97314 UT) Oral Capsule (Vitamin D2(Drisdol)) Take 1 [...] AL (myocardial infarction) 03/01/2023 03/01/2023 Atherosclerosis of [place] co ronary artery without angina pectoris 02/08/2022 [...] malnutrition 09/28/2018 09/23/2021 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/2021 TARIFF PUBLISHING AGENT 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 02/06/2017 05/02/2018 TARIFF PUBLISHING AGENT 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 02/06/2017 07/09/2019 Iron deficiency anemia [...] mRNA, LNP-s, No Pre serve, 2-Dose Series (Doodle) 02/16/2021,11/25/2020,11/01/2020 COVID-19, MRNA-LNP, 23-24, P F, 30 MCG/0.3 mL, 12 YRS AND ABOVE, IM (PFIZER-Comirnaty) 04/10/2023 Covid-19, Mrna, Lnp-s, Pf, B ivalent, 30 Mcg, IM, 12 yrs and above (Pfizer) 04/12/2022 Pneumococcal Conjugate Vacci ne, 20-valent (Pmltrqa33) 12/10/2021 Pneumococcal Polysaccharide PPV23 (Pneumovax) 07/21/2009 Seasonal [...] standby list or offered sooner appointment in [place] with physician staff assistant. Thanks, HM * Telephone Encounter - Shahla Pan RN - 10/16/2023 4:16 PM EDT Called patient back, informed her of the orders placed for a urine specimen. She lives in [place], she could not be here before the lab closes. She has an appointment with gastroenterology tomorrow, she will do the urine specimen tomorrow whenat that clinic. Asked if Li sent the script in for the lidocaine patches? Informed her NO. States at the [employer] store, it is over $4 for 1-2 [...] AM EDT I will send Rollator thru [facility]. Can can you talk to her [...] a "lightweight" rollator, to be sent to [facility]. Needs elton lightweight due to her size/weight. 2) asking for a script for the lidocaine patches for her right shoulder pain. States they helped [facility] [place]. Thank you. documented in this encounter Plan of Treatment Upcoming Encounters Date Type Department Care Team (Late st Contact Info) Description 10/17/2023 3:20 PM EDT Office Visit Gastroenterology, [facility] [address] [address] Milind Yadav MD [address] [address] 10/23/2023 9:20 AM EDT Office Visit Neurology [facility] [place] [address] [facility] [place] [address] Aris Mohr MD [address] [facility] [place] [address] 11/08/2023 10:20 AM EDT Office Visit Family Medicine [address] [place] [phone] Evelyn Andrews MD [address] [place] [address] [place] [address] 12/04/2023 3:45 PM EDT Office Visit Urology, [facility] [address] [place] [address] Christopher Almonte MD [address] [facility] [address] [address] Scheduled Orders Name Type Priority Associated Diagnoses [...] 024, 08/23/2022, 09/20/2021 CKD HGB USE SMARTSET 48673 10/08/202410/08, 10/06/2023, 10/05/2023, Additional history exists CKD PHOS USE SMARTSET 45180 10/09/202409/24, 10/09/2023, 10/08/2023, Additional history exists DTaP,Tdap,and [...] this encounter Medical Devices Implanted Type Area Shuttle Van Driver Device Identifier Shelf Expiration Date Model / Serial / Lot Stent Axios 20mm - [id number] Implanted:Qty: 1 on 01/04/2021 by Leyda Garcia MD at OR [facility] N/A: Stomach [employer] : ENDOSCOPY 11/20/2021 [id number] / / [id number] documented as of this encounter Visit Diagnoses Diagnosis Severe protein-energy malnutrition (HCC)- Primary Other severe protein-calorie malnutrition Dysuria documented in this encounter Advance Directives Documents on File Type Date Recorded Patient Yarn Inspector Expl anation POLST 01/03/2022 [place] [facility] FOR LIFE-SUSTAINING TREATMENT Latest [...] Other - (no specific identity) Health Care Yarn Inspector (appointed verbally by patient or by statute hierarchy) Rowdy Kraus Health Care Yarn Inspector (appointed verbally by patient or by statute hierarchy) Care Teams Wine Specialist Relationship Specialty Start Date End Date Evelyn Andrews MD [address] [place] [address] [place] [address] PCP - General Family Medicine 05/04/18 documented as of this encounter
--- OUTSIDE RECORDS SUMMARY | 2023-12-07 18:33 | External Medical Summary ---
Author Name Unknown Address Unknown Organization K1F:[facility] - [address] [place] [address] Laboratory Report Ordering Provider Test Date Status VIVIANE BECKER 10/10/2023 04:08:00 Final Observation Date Value Abnormality Reference (Units ) Status BUN 10/10/2023 04:08:00 50 Above high normal 6-20 (mg/dL) Final Creatinine 10/10/2023 04:08:00 1.1 Above high normal 0.5-1.0 (mg/dL) Final Glomerular filtration rate/1.73 sq M.predicted [Volume Rate/Area] in Serum, Plasma or Blood by Creatinine-based formula (CKD-EPI) 10/10/2023 04:08:00 59 Below low normal >=60 (mL/min) Final eGFR is calculated based on the CKD-EPI 2020 equation Sodium 10/10/2023 04:08:00 140 135-146 (m mol/L) Final Potassium 10/10/2023 04:08:00 5.7 Above high normal 3. 5-5.1 (mmol/L) Final Cl 10/10/2023 04:08:00 104 98-107 (mm ol/L) Final CO2 10/10/2023 04:08:00 23 22-32 (mmo l/L) Final Anion gap 10/10/2023 04:08:00 13 7-15 (mmol /L) Final Glucose 10/10/2023 04:08:00 102 70-120 (mg /dL) Final Calcium 10/10/2023 04:08:00 8.2 Below low normal 8.4 -10.2 (mg/dL) Final Performing Location [facility]ATORY [facility] - [address] [place] [address]
--- OUTSIDE RECORDS SUMMARY | 2023-12-07 18:33 | External Medical Summary ---
Author Name Unknown Address Unknown Organization : Laboratory Report Ordering Provider Test Date Status MARIELOS SALAS 10/10/2023 07:46:42 Final Observation Date Value Abnormality Reference (Units ) Status Glucose Point of Care 10/10/2023 07:46:42 107 70-120 (mg/dL) Final Performing Location
--- OUTSIDE RECORDS SUMMARY | 2023-12-07 18:33 | External Medical Summary ---
Author Name Unknown Address Unknown Organization K1F:[facility] - [address] [place] [address] Laboratory Report Ordering Provider Test Date Status MINMAW 10/10/2023 04:08:00 Final Observation Date Value Abnormality Reference (Units ) Status Magnesium 10/10/2023 04:08:00 1.4 Below low normal 1.5 -2.6 (mg/dL) Final Performing Location [facility] - [address] [place] [address]
--- OUTSIDE RECORDS SUMMARY | 2023-12-07 18:33 | External Medical Summary ---
Author Name Unknown Address Unknown Organization K1F:[facility] - [address] [place] [address] Laboratory Report Ordering Provider Test Date Status MARIELOS SALAS 10/10/2023 10:15:00 Final Observation Date Value Abnormality Reference (Units ) Status BUN 10/10/2023 10:15:00 49 Above high normal 6-20 (mg/dL) Final Creatinine 10/10/2023 10:15:00 1.1 Above high normal 0.5-1.0 (mg/dL) Final Glomerular filtration rate/1.73 sq M.predicted [Volume Rate/Area] in Serum, Plasma or Blood by Creatinine-based formula (CKD-EPI) 10/10/2023 10:15:00 59 Below low normal >=60 (mL/min) Final eGFR is calculated based on the CKD-EPI 2020 equation Sodium 10/10/2023 10:15:00 141 135-146 (m mol/L) Final Potassium 10/10/2023 10:15:00 3.6 3.5-5.1 (m mol/L) Final Cl 10/10/2023 10:15:00 104 98-107 (mm ol/L) Final CO2 10/10/2023 10:15:00 24 22-32 (mmo l/L) Final Anion gap 10/10/2023 10:15:00 13 7-15 (mmol /L) Final Glucose 10/10/2023 10:15:00 161 Above high normal 70 -120 (mg/dL) Final Calcium 10/10/2023 10:15:00 8.1 Below low normal 8.4 -10.2 (mg/dL) Final Performing Location [facility] - [address] [facility] [address] [place] [address]
--- OUTSIDE RECORDS SUMMARY | 2023-12-07 18:33 | External Medical Summary ---
Author Name Unknown Address Unknown Organization K1F:[facility] - [address] [place] [address] Laboratory Report Ordering Provider Test Date Status MIN,MAW 10/10/2023 04:08:00 Final Observation Date Value Abnormality Reference (Units ) Status Phosphate 10/10/2023 04:08:00 4.1 2.5-4.8 (m g/dL) Final Performing Location [facility] - [address] [place] [address]
--- OUTSIDE RECORDS SUMMARY | 2023-12-07 18:33 | External Medical Summary ---
Author Name Unknown Address Unknown Organization : Laboratory Report Ordering Provider Test Date Status MARIELOS SALAS 10/10/2023 10:29:53 Final Observation Date Value Abnormality Reference (Units ) Status Glucose Point of Care 10/10/2023 10:29:53 237 Above high normal 70-120 (mg/dL) Final Performing Location
--- OUTSIDE RECORDS SUMMARY | 2023-12-07 18:33 | External Medical Summary | Summary of Care ---
Author Name Unknown Organization [facility] Address [address] [place] [address] Phone [phone] Care Team Providers Care Process Consultant Name Role Phone Evelyn Andrews MD Primary Care Prov ider Reason for Visit * Auth/Cert Specialty Diagnoses / Procedures Referred By Francisco mathew Referred To Contact Diagnoses FTT Alen Larsen MD [address] [place] [id number] [address] Referral ID Status Reason Start Date Expiration Date Visits Re quested Visits Authorized [id number] Encounter Details Date Type Department Care Team (Late st Contact Info) Description 09/20/2023 12:39 PM EDT - 10/10/2023 11:56 AM EDT Hospital Encounter 5A [facility] 5th [address] [place] [id number] Alen Larsen MD [address] [place] [address] [id number] Wilma Mayo MD [address] [place], [place] [address], [place] [phone] Wilner Gross MD [address] [place] [address] [id number] Aris Bacon DO [address] [place], [place] [phone] Jess Carranza MD [address] [place] [address] [phone] Byron Johnson MD [address] [place], [place] [phone] Juan Zaragoza DO [address] [place] [address] Various: EKG,KRAVS,CDIQDC Discharge Disposition: Home - Self Care Allergies Active Allergy Reactions Criticality Noted Date Comments Amoxicillin Edema airway High 01/22/2003 Oxybutynin 03/25/2023 Mouth ulcers Sulfa Antibiotics Edema airway High 08/15/2006 documented as of this encounter (statuses as of 10/10/2023) Medications Medication Sig Dispensed Refills Start Date [...] 3 Active Mirtazapine 45 MG Oral Tablet (Remeron)Indication s:Recurrent major depressive disorder, in partial remission (HCC) Take 1 Tablet by mouth at bedtime. 30 Tablet 3 3 Active ALPRAZolam 0.25 MG Oral Tablet (xaNAX)Indications: Anxiety Take 1 Tablet by mouth at bedtime as needed for Sleep. 30 Tablet 3 3 Active guaiFENesin-Codeine 100-10 MG/5ML Oral Syrup (Robitussin AC)Indications:COVI D-19 Take 5 mL by mouth every 4 hours as needed for Cough. 120 mL 0 4 Active Nystatin 977003 UNIT/GM External Cream APPLY TO AFFECTED AREA TWICE A DAY 30 g 2 4 Active OLANZapine 5 MG Oral Tablet Disintegrating (zyPREXA zyDIS) Place 1 Tablet on tongue in the morning. 30 Tablet 5 4 Active Omeprazole 20 MG Oral Capsule Delayed Release (PriLOSEC) TAKE 1 CAPSULE BY MOUTH EVERY DAY IN THE MORNING 90 Capsule 4 4 Active Diphenoxylate-Atrop ine 2.5-0.025 MG Oral Tablet [...] FOR MIGRAINE. 10 Tablet 5 4 Active Bshkgobrqw-NLQC-Hhw feine 50-325-40 MG Oral Tablet (Fioricet)Indicatio ns:Migraine variant TAKE ONE TABLET EVERY 6 HOURS NEEDED FOR PAIN 90 Tablet 1 4 Active Pregabalin 25 MG Oral Capsule (Lyrica)Indications [...] 30 Tablet 0 4 11/09/19 24 Active oxyCODONE HCl 5 MG Oral Tablet (Oxy IR) Take 1 Tablet by mouth every 6 hours as needed for Pain, Breakthrough or Pain, Severe for up to 3 days. 12 Tablet 0 4 10/13/19 24 Active Ascorbic Acid 250 MG [...] 4 11/09/19 24 Active Ergocalciferol 1.25 MG (94983 UT) Oral Capsule (Vitamin D2(Drisdol)) Take 1 Capsule by mouth once a day on Monday, Monday, and Monday only. 12 Capsule 0 4 11/09/19 24 Active busPIRone HCl 5 MG Oral Tablet (Buspar) Take 1 Tablet by mouth in the morning and 1 Tablet at noon and 1 Tablet before bedtime. 90 Tablet 0 4 11/09/19 24 Active Estradiol 0.1 MG/GM Vaginal Cream (Estrace) Administer 1 g into the vagina in the morning. Apply periurethrally as directed.. 42.5 g 2 2 10/09/19 24 Discontinu ed(Medicat ion List Clean Up) Myrbetriq 25 MG Oral Tablet Extended Release 24 Hour (Mirabegron ER)Indications:Urge incontinence of urine Take 1 Tablet by mouth in the morning. 90 Tablet 3 3 10/09/19 24 Discontinu ed(Medicat ion List Clean Up) Furosemide 20 MG Oral Tablet (Lasix) Take 1 Tablet by mouth in the morning. 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 02/06/2017 07/09/2019 Iron deficiency anemia 06/28/201109/20 Overview: ICD-10 update of inactive term Iron deficiency anemia 06/28/201109/20 Overview: ICD-10 update of inactive term Iron deficiency anemia pat paulino to inadequate dietary iron intake 09/26/2008 3 Infected postoperative seroma 06/02/2003 09/20/2012 PANNICULITIS, UNSP SITE 05/14/2003 09/0 11/2022 documented as of this encounter (statuses as of 10/10/2023) Immunizations Name Administration Dates Next Due COVID-19 mRNA, LNP-s, No Pre serve, 2-Dose Series (Foodzai) 02/16/2021,11/25/2020,11/01/2020 COVID-19, MRNA-LNP, 23-24, P F, 30 MCG/0.3 mL, 12 YRS AND ABOVE, IM (PFIZER-Comirnaty) 04/10/2023 Covid-19, Mrna, Lnp-s, Pf, B ivalent, 30 Mcg, IM, 12 yrs and above (Pfizer) 04/12/2022 Pneumococcal Conjugate Vacci ne, 20-valent ([id number]) 12/10/2021 Pneumococcal Polysaccharide PPV23 (Pneumovax) 07/21/2009 Seasonal [...] Tobacco: Never Tobacco Cessation:Ready to Q uit: No; Counseling Given: No Alcohol Use Standard Drinks/Week Comments Not Currently [...] Sign Reading Time Taken Comments Blood Pressure 108/67 10/10/2023 10:49 AM EDT Pulse 103 10/10/2023 10:49 AM EDT Temperature 36.5 C (97.7 F) 10/10/2023 10:49 AM E DT Respiratory Rate 18 10/10/2023 10:49 AM EDT Oxygen Saturation 92% 10/10/2023 10:49 AM EDT Inhaled Oxygen Concentration - - Weight 41.5 kg (91 lb 6.4 oz) 10/10/2023 8:00 AM EDT Height 149.9 cm (4' 11") 09/20/2023 12:49 PM EDT Body Mass Index 18.46 09/20/2023 12:49 PM EDT documented in this [...] Yes 09/20/2023 documented as of this encounter Discharge Summaries * Juan Zaragoza DO - 10/10/2023 10:09 AM EDT [facility] [id number] Admission Date: 09/20/2023 Discharge Date: 10/10/2023 RECOMMENDED TO DO FOR NEXT PROVIDER(S): patient will need to recheck vitamin D, vitamin B12, MMA, Homocysteine, zinc and vitamin E levels (around 05/30/24) Recommend rpt CXR or CT outpatient in 4-6 weeks to be done by PCP REASON(S) FOR MEDICATION CHANGE(S): monthly B12 injections moving forward. oral vitamin-D 84091 units MWF oral iron supplementation vitamin-E 400 units daily Resolved back acid daily Oxycodone as needed 3 days q.4 hours BuSpar 5 mg TID Cholestyramine daily Ascorbic acid 250 mg daily DISPOSITION ON DISCHARGE: home Active Hospital Problems Diagnosis *Principal Diagnosis - Failure to thrive in adult Acute pain of right shoulder Mixed incontinence Retention of urine Hypoxia Multifocal pneumonia Acute hypoxic respiratory failure (HCC) Acute urinary retention ROBINSON (acute kidney injury) (HCC) Adjustment disorder Tobacco abuse Fall at home Generalized weakness Bipolar disorder (HCC) MDD (major depressive disorder), recurrent episode, moderate (HCC) On total parenteral nutrition (TPN) Cachexia (HCC) Hereditary and idiopathic peripheral neuropathy Chronic pain syndrome Intestinal postoperative nonabsorption Anemia Resolved Hospital Problems No resolved problems to display. ADMISSION HISTORY & PHYSICAL EXAM (focused): per Dr Mayo 58 year old female who presented to [facility] 09/20/2023 for planned, direct admission accepted by Dr. Sabina Larsen on 09/19/2023 for failure to thrive. According to available records, patient, and correspondence from Dr. Larsen regarding admission, patient has been using TPN at home three days per week for 12hours each session but continues to lose weight. Patient reports that she had been 90 lbs, then dropped to 80 lbs, and currently 73 lbs. She noted that she started TPN at home around 80 lbs. She was doing it for 12 hours five times per week. In continued follow-up with Dr. Wilkerson and nutritional support team, she noted that she had "no life" because she comes home from work then has to get hooked up to TPN for 12 hours and cannot go out anywhere. Because of this she notes that she decreased the TPN to just three times per week on MWF. There is some concern that she has not been compliant with this regimen. She states that she does take PO as she is able/hungry but continues to lose weight, has increasing weakness, LE edema at times, and has also been falling at home with the increased weakn ess. As per Dr. Wilkerson, she is to be admitted for daily TPN which is resumption of this modality andconcern for refeeding syndrome with restarting therapy. Patient is in agreement for plan with d/c plan to resume TPN 12 hours three times per week. [id number] Spoke with pharmacist, Guillermo Park. Labs ordered to start tomorrow, today's TPN ordered to start this evening, pharmacy detailed note in chart with plan to do 24 hours TPN today, 16 tomorrow, Monday then resume her MWF 12 hour schedule and d/c to home. Most Recent Vital Signs: BP: 111 mmHg/76 mmHg (09/20/23 1454) Pulse: 88 (09/20/23 1454) Temp: 36.22 C (09/20/23 1454) Temp Summary: Temp Min: 35.9 C (96.6 F) Max: 36.2 C (97.2 F) SpO2: 96 % (09/20/23 1454) O2 flow rate: Supplemental O2 Delivery: Room Air, None (09/20/23 1454) Wt Readings from Last 3 Encounters: 09/20/23 33.6 kg (74 lb 1.6 oz) 08/15/23 35.4 kg (78 lb) 06/20/23 34.5 kg (76 lb) General: sitting at side of bed in room, in no acute distress Psych: pleasant, cooperative, good eye contact Neuro: alert, oriented X 3, fluent speech; moves all extremities without difficulty, follows simplecommands Eye Exam: Conjunctiva are pink and non-injected, sclera clear, no xanthelasma; wears glasses Ears: External ears normal Oropharynx: mucous membranes moist Heart: regular rate & rhythm, no murmurs, and no gallops Lungs: clear to auscultation, no wheezing, no rales, no rhonchi, respirations even and unlabored, no use of accessory muscles, no retractions Abdomen: abdomen soft, non-tender, normal bowel sounds in all 4 quadrants, and no rebound or guarding Back: No CVA tenderness, no tenderness to palpation, + kyphosis Extremities: trace bilat LE edema; no bilat calf tenderness, no clubbing, no cyanosis, capillary refill < 3 seconds Integumentary: Mead, warm, dry; no significant rashes or lesions; Allevyn intact over sacral/coccyxarea Chest: left tunneled catheter in place -- dressing clean, dry, intact, purple and white ports capped HOSPITAL COURSE (focused): 58 year old female who presented to [facility] 09/20/2023 for planned, direct admission accepted by Dr. Sabina Larsen on 09/19/2023 for failure to thrive. Patient has been using TPN at home three days per week for 12 hours each session but continues to lose weight going from 90 lb and drop into 73 lb. In continued follow-up with Dr. Wilkerson and nutritional support team, she noted that she had "no life" because she comes home from work then has to get hooked up to TPN for 12 hours and cannot go out anywhere.Because of this she notes that she decreased the TPN to just three times per week on MWF. There is some concern that she has not been compliant with this regimen. She states that she does take PO as she is able/hungry but continues to lose weight, has increasing weakness, LE edema at times, and hasalso been falling at home with the increased weakness. As per Dr. Wilkerson, she is to be admitted for daily TPN which is resumption of this modality and concern for refeeding syndrome with restarting therapy. Patient's admission was complicated by acute respiratory failure with hypoxia concerning due to flash pulmonary edema versus multifocal pneumonia. TPN was held for a short period due to concernthat it may have been the cause of patient's worsening hypoxia but was subsequently restarted. Patient was started on antibiotics which she complete a 7 day course. Oxygen was able to be weaned down and she underwent ambulatory pulse ox today and she does not need oxygen. Developed acute on chronickidney disease which has since returned back to baseline. Patient developed symptomatic anemia received 1 unit PRBC. Iron studies did show iron- deficiency anemia. During this concern there was concern for multiple sclerosis. Neurology was consulted. Patient underwent MRI but there was no evidence of demyelinating disease. Underwent lumbar puncture on 10/04. The past few days patient had repeatedly stated that she did not want to be on TPN. She states she does not have a life. This was discussedwith Dr. Wilkerson and nutrition team. Plan at this time is to not order TPN and try to see if patient is able to get adequate nutrition via oral route. Patient also developed urine retention throughout her stay. Attempted voiding trial a few days ago which was unsuccessful. Patient did not want to go home with a Yin catheter so voiding trial Evaluated by Psychiatry due to concern for suicidal ideation. Did not require inpatient psych. And recommended continuation of current medications. Operations & Procedures: Lumbar puncture Complications: none significant Significant Lab and Imaging Results: Results for orders placed or performed during the hospital encounter of 09/20/23 SARS-COV-2 (COVID-19), NAAT Result Value Ref Range SARS-CoV-2 (COVID-19) Result Negative Negative BASIC METABOLIC PANEL Result Value Ref Range BUN 37 (H) 6 - 20 mg/dL Creatinine 1.2 (H) 0.5 - 1.0 mg/dL Estimated Glomerular Filtration Rate 52 (L) >=60 mL/min Sodium 136 135 - 146 mmol/L Potassium 5.5 (H) 3.5 - 5.1 mmol/L Chloride 111 (H) 98 - 107 mmol/L CO2 13 (L) 22 - 32 mmol/L Anion Gap 12 7 - 15 mmol/L Glucose 99 70 - 120 mg/dL Calcium 8.1 (L) 8.4 - 10.2 mg/dL CALCIUM, IONIZED Result Value Ref Range Calcium, Ionized 1.34 (H) 1.13 - 1.32 mmol/L PHOSPHORUS Result Value Ref Range Phosphorus 5.0 (H) 2.5 - 4.8 mg/dL MAGNESIUM Result Value Ref Range Magnesium 1.9 1.5 - 2.6 mg/dL CBC Result Value Ref Range WBC 5.66 4.00 - 10.80 K/uL RBC 2.88 3.85 - 5.15 M/uL HGB 9.3 (L) 12.0 - 15.3 g/dL HCT 29.8 (L) 36.0 - 45.2 % MCV 103.5 81.5 - 97.5 fL MCH 32.3 27.0 - 34.0 pg MCHC 31.2 32.0 - 36.0 g/dL RDW 14.8 11.5 - 15.5 % PLT 330 140 - 400 K/uL MPV 11.1 6.6 - 11.1 fL nRBCs 0 <=0 /100 WBCs BASIC METABOLIC PANEL Result Value Ref Range BUN 39 (H) 6 - 20 mg/dL Creatinine 1.1 (H) 0.5 - 1.0 mg/dL Estimated Glomerular Filtration Rate 57 (L) >=60 mL/min Sodium 135 135 - 146 mmol/L Potassium 5.1 3.5 - 5.1 mmol/L Chloride 112 (H) 98 - 107 mmol/L CO2 16 (L) 22 - 32 mmol/L Anion Gap 7 7 - 15 mmol/L Glucose 88 70 - 120 mg/dL Calcium 8.2 (L) 8.4 - 10.2 mg/dL PHOSPHORUS Result Value Ref Range Phosphorus 3.2 2.5 - 4.8 mg/dL MAGNESIUM Result Value Ref Range Magnesium 1.9 1.5 - 2.6 mg/dL VITAMIN A (RETINOL) Result Value Ref Range Vitamin A (Retinol) 51 38 - 98 mcg/dL 25-HYDROXY VITAMIN D Result Value Ref Range 25-Hydroxy Vitamin D 9 (L) >19 ng/mL VITAMIN E (TOCOPHEROL) Result Value Ref Range Alpha-Tocopherol 4.6 (L) 5.7 - 19.9 mg/L Vbcm-Weyuv-Aijwqeddgt 2.6 <=4.3 mg/L VITAMIN K Result Value Ref Range Vitamin K >2500 (H) 130 - 1500 pg/mL VITAMIN B1 (THIAMINE), BLOOD, LC/MS/MS Result Value Ref Range Vitamin B1 (Thiamine),B 250 (H) 78 - 185 nmol/L FOLIC ACID Result Value Ref Range Folic Acid 8.2 >4.5 ng/mL VITAMIN B12 Result Value Ref Range Vitamin B12 398 232 - 1,245 pg/mL METHYLMALONIC ACID, SERUM Result Value Ref Range Methylmalonic Acid 2045 (H) 87 - 318 nmol/L COPPER, SERUM OR PLASMA Result Value Ref Range Copper 85 70 - 175 mcg/dL ZINC Result Value Ref Range Zinc 38 (L) 60 - 130 mcg/dL IRON SCREEN, INCLUDING TIBC Result Value Ref Range Iron 39 33 - 151 ug/dL Iron Binding Capacity 258 250 - 425 ug/dL Transferrin Saturation Percent 15 15 - 55 % FERRITIN Result Value Ref Range Ferritin 16 13 - 150 ng/mL BASIC METABOLIC PANEL Result Value Ref Range BUN 45 (H) 6 - 20 mg/dL Creatinine 1.1 (H) 0.5 - 1.0 mg/dL Estimated Glomerular Filtration Rate 58 (L) >=60 mL/min Sodium 134 (L) 135 - 146 mmol/L Potassium 5.7 (H) 3.5 - 5.1 mmol/L Chloride 107 98 - 107 mmol/L CO2 16 (L) 22 - 32 mmol/L Anion Gap 11 7 - 15 mmol/L Glucose 150 (H) 70 - 120 mg/dL Calcium 8.5 8.4 - 10.2 mg/dL PHOSPHORUS Result Value Ref Range Phosphorus 3.9 2.5 - 4.8 mg/dL MAGNESIUM Result Value Ref Range Magnesium 2.0 1.5 - 2.6 mg/dL BASIC METABOLIC PANEL Result Value Ref Range BUN 47 (H) 6 - 20 mg/dL Creatinine 1.0 0.5 - 1.0 mg/dL Estimated Glomerular Filtration Rate 63 >=60 mL/min Sodium 136 135 - 146 mmol/L Potassium 4.4 3.5 - 5.1 mmol/L Chloride 110 (H) 98 - 107 mmol/L CO2 17 (L) 22 - 32 mmol/L Anion Gap 9 7 - 15 mmol/L Glucose 95 70 - 120 mg/dL Calcium 7.8 (L) 8.4 - 10.2 mg/dL PHOSPHORUS Result Value Ref Range Phosphorus 4.2 2.5 - 4.8 mg/dL MAGNESIUM Result Value Ref Range Magnesium 2.0 1.5 - 2.6 mg/dL URINALYSIS, REFLEX TO MICROSCOPIC Result Value Ref Range Color, Urine Yellow Light Yellow, Yellow, Dark Yellow Clarity, Urine Clear Clear Glucose, Urine Negative Negative mg/dL Bilirubin, Urine Negative Negative Ketone, Urine Negative Negative mg/dL Specific Muddy, Urine 1.015 1.003 - 1.030 Blood, Urine Negative Negative pH, Urine 6.0 5.0 - 7.5 Units Protein, Urine Negative Negative mg/dL Urobilinogen, Urine 0.2 0.2, 1.0 mg/dL Nitrite, Urine Negative Negative Esterase, Urine Negative Negative Comment, Urine BASIC METABOLIC PANEL Result Value Ref Range BUN 66 (H) 6 - 20 mg/dL Creatinine 1.2 (H) 0.5 - 1.0 mg/dL Estimated Glomerular Filtration Rate 50 (L) >=60 mL/min Sodium 139 135 - 146 mmol/L Potassium 4.5 3.5 - 5.1 mmol/L Chloride 110 (H) 98 - 107 mmol/L CO2 16 (L) 22 - 32 mmol/L Anion Gap 13 7 - 15 mmol/L Glucose 116 70 - 120 mg/dL Calcium 8.6 8.4 - 10.2 mg/dL PHOSPHORUS Result Value Ref Range Phosphorus 4.6 2.5 - 4.8 mg/dL MAGNESIUM Result Value Ref Range Magnesium 2.3 1.5 - 2.6 mg/dL BASIC METABOLIC PANEL Result Value Ref Range BUN 82 (H) 6 - 20 mg/dL Creatinine 1.5 (H) 0.5 - 1.0 mg/dL Estimated Glomerular Filtration Rate 39 (L) >=60 mL/min Sodium 137 135 - 146 mmol/L Potassium 4.5 3.5 - 5.1 mmol/L Chloride 107 98 - 107 mmol/L CO2 15 (L) 22 - 32 mmol/L Anion Gap 15 7 - 15 mmol/L Glucose 96 70 - 120 mg/dL Calcium 8.3 (L) 8.4 - 10.2 mg/dL PHOSPHORUS Result Value Ref Range Phosphorus 5.4 (H) 2.5 - 4.8 mg/dL MAGNESIUM Result Value Ref Range Magnesium 2.5 1.5 - 2.6 mg/dL BASIC METABOLIC PANEL Result Value Ref Range BUN 83 (H) 6 - 20 mg/dL Creatinine 1.6 (H) 0.5 - 1.0 mg/dL Estimated Glomerular Filtration Rate 38 (L) >=60 mL/min Sodium 134 (L) 135 - 146 mmol/L Potassium 4.5 3.5 - 5.1 mmol/L Chloride 106 98 - 107 mmol/L CO2 15 (L) 22 - 32 mmol/L Anion Gap 13 7 - 15 mmol/L Glucose 118 70 - 120 mg/dL Calcium 8.5 8.4 - 10.2 mg/dL PHOSPHORUS Result Value Ref Range Phosphorus 4.3 2.5 - 4.8 mg/dL MAGNESIUM Result Value Ref Range Magnesium 2.5 1.5 - 2.6 mg/dL HEPATIC FUNCTION PANEL Result Value Ref Range Albumin 3.0 (L) 3.8 - 5.0 g/dL AST 22 10 - 35 U/L Alkaline Phosphatase 112 35 - 130 U/L ALT 30 10 - 35 U/L Bilirubin, Total <0.2 <=1.2 mg/dL Bilirubin, Direct <0.2 0.0 - 0.3 mg/dL Protein 5.8 (L) 6.0 - 8.3 g/dL TRIGLYCERIDES Result Value Ref Range Triglycerides 101 <=174 mg/dL CALCIUM, IONIZED Result Value Ref Range Calcium, Ionized 1.27 1.13 - 1.32 mmol/L BASIC METABOLIC PANEL Result Value Ref Range BUN 83 (H) 6 - 20 mg/dL Creatinine 1.6 (H) 0.5 - 1.0 mg/dL Estimated Glomerular Filtration Rate 37 (L) >=60 mL/min Sodium 136 135 - 146 mmol/L Potassium 4.7 3.5 - 5.1 mmol/L Chloride 107 98 - 107 mmol/L CO2 16 (L) 22 - 32 mmol/L Anion Gap 13 7 - 15 mmol/L Glucose 118 70 - 120 mg/dL Calcium 8.4 8.4 - 10.2 mg/dL PHOSPHORUS Result Value Ref Range Phosphorus 4.3 2.5 - 4.8 mg/dL MAGNESIUM Result Value Ref Range Magnesium 2.6 1.5 - 2.6 mg/dL BASIC METABOLIC PANEL Result Value Ref Range BUN 91 (H) 6 - 20 mg/dL Creatinine 1.9 (H) 0.5 - 1.0 mg/dL Estimated Glomerular Filtration Rate 29 (L) >=60 mL/min Sodium 136 135 - 146 mmol/L Potassium 4.8 3.5 - 5.1 mmol/L Chloride 106 98 - 107 mmol/L CO2 15 (L) 22 - 32 mmol/L Anion Gap 15 7 - 15 mmol/L Glucose 139 (H) 70 - 120 mg/dL Calcium 8.1 (L) 8.4 - 10.2 mg/dL PHOSPHORUS Result Value Ref Range Phosphorus 3.9 2.5 - 4.8 mg/dL MAGNESIUM Result Value Ref Range Magnesium 2.5 1.5 - 2.6 mg/dL BASIC METABOLIC PANEL Result Value Ref Range BUN 102 (H) 6 - 20 mg/dL Creatinine 2.2 (H) 0.5 - 1.0 mg/dL Estimated Glomerular Filtration Rate 25 (L) >=60 mL/min Sodium 135 135 - 146 mmol/L Potassium 4.5 3.5 - 5.1 mmol/L Chloride 106 98 - 107 mmol/L CO2 13 (L) 22 - 32 mmol/L Anion Gap 16 (H) 7 - 15 mmol/L Glucose 151 (H) 70 - 120 mg/dL Calcium 8.2 (L) 8.4 - 10.2 mg/dL PHOSPHORUS Result Value Ref Range Phosphorus 4.3 2.5 - 4.8 mg/dL MAGNESIUM Result Value Ref Range Magnesium 2.6 1.5 - 2.6 mg/dL TROPONIN T, HIGH SENSITIVITY Result Value Ref Range Troponin T, High Sensitivity 41 (H) <=14 ng/L PHOSPHORUS Result Value Ref Range Phosphorus 3.6 2.5 - 4.8 mg/dL MAGNESIUM Result Value Ref Range Magnesium 2.4 1.5 - 2.6 mg/dL RESPIRATORY PATHOGEN PANEL, PCR Result Value Ref Range Adenovirus by PCR Negative Negative Coronavirus 229E by PCR Negative Negative Coronavirus HKU1 by PCR Negative Negative Coronavirus NL63 by PCR Negative Negative Coronavirus OC43 by PCR Negative Negative Coronavirus SARS-CoV-2 by PCR Negative Negative Human Metapneumovirus by PCR Negative Negative Rhinovirus/Enterovirus by PCR Negative Negative Influenza A Virus by PCR Negative Negative Influenza B Virus by PCR Negative Negative Parainfluenza Virus 1 by PCR Negative Negative Parainfluenza Virus 2 by PCR Negative Negative Parainfluenza Virus 3 by PCR Negative Negative Parainfluenza Virus 4 by PCR Negative Negative Respiratory Syncytial Virus by PCR Negative Negative Bordetella pertussis by PCR Negative Negative Chlamydia pneumoniae by PCR Negative Negative Mycoplasma pneumoniae by PCR Negative Negative Bordetella parapertussis by PCR Negative Negative CULTURE, BLOOD Result Value Ref Range Blood Culture Growth No growth CULTURE, BLOOD Result Value Ref Range Blood Culture Growth No growth BASIC METABOLIC PANEL Result Value Ref Range BUN 92 (H) 6 - 20 mg/dL Creatinine 1.8 (H) 0.5 - 1.0 mg/dL Estimated Glomerular Filtration Rate 31 (L) >=60 mL/min Sodium 136 135 - 146 mmol/L Potassium 3.7 3.5 - 5.1 mmol/L Chloride 105 98 - 107 mmol/L CO2 15 (L) 22 - 32 mmol/L Anion Gap 16 (H) 7 - 15 mmol/L Glucose 171 (H) 70 - 120 mg/dL Calcium 8.3 (L) 8.4 - 10.2 mg/dL CBC Result Value Ref Range WBC 17.65 (H) 4.00 - 10.80 K/uL RBC 2.33 3.85 - 5.15 M/uL HGB 7.6 (L) 12.0 - 15.3 g/dL HCT 23.5 (L) 36.0 - 45.2 % MCV 100.9 81.5 - 97.5 fL MCH 32.6 27.0 - 34.0 pg MCHC 32.3 32.0 - 36.0 g/dL RDW 14.0 11.5 - 15.5 % PLT 297 140 - 400 K/uL MPV 11.8 6.6 - 11.1 fL nRBCs 0 <=0 /100 WBCs BLOOD GAS, ARTERIAL Result Value Ref Range Temperature 37.0 C pH, Arterial 7.343 (L) 7.350 - 7.450 units pCO2, Arterial 32.2 (L) 35.0 - 45.0 mmHg pO2, Arterial 80.2 75.0 - 100.0 mmHg Base Excess, Arterial -7.5 (L) -2.0 - 2.0 mmol/L HGB 7.1 (L) 12.0 - 15.3 g/dL Oxyhemoglobin, Arterial 90.0 (L) 94.0 - 99.0 % total Hgb Carboxyhemoglobin, Whole Blood 0.7 <=1.5 % total Hgb Methemoglobin, Whole Blood 2.7 (H) <=1.5 % total Hgb Reduced Hemoglobin, Arterial 6.6 (H) 0.0 - 5.0 % total Hgb O2 Content, Arterial 9.2 (L) 15.0 - 24.0 %vol FiO2 Not Provided % O2 Flow, Arterial 4 L/min Bicarbonate, Whole Blood 17.0 (L) 23.0 - 31.0 mmol/L LACTATE Result Value Ref Range Lactate 0.9 0.4 - 2.0 mmol/L CBC Result Value Ref Range WBC 17.02 (H) 4.00 - 10.80 K/uL RBC 2.27 3.85 - 5.15 M/uL HGB 7.2 (L) 12.0 - 15.3 g/dL HCT 23.0 (L) 36.0 - 45.2 % MCV 101.3 81.5 - 97.5 fL MCH 31.7 27.0 - 34.0 pg MCHC 31.3 32.0 - 36.0 g/dL RDW 14.2 11.5 - 15.5 % PLT 289 140 - 400 K/uL MPV 11.8 6.6 - 11.1 fL nRBCs 0 <=0 /100 WBCs TYPE AND SCREEN Result Value Ref Range ABO A Rh Positive Red Blood Cell Antibody Screen Negative Specimen Expiration Date 10/04/2023 23:59 PROCALCITONIN Result Value Ref Range Procalcitonin 0.40 (H) <0.10 ng/mL CBC Result Value Ref Range WBC 17.00 (H) 4.00 - 10.80 K/uL RBC 2.79 3.85 - 5.15 M/uL HGB 8.4 (L) 12.0 - 15.3 g/dL HCT 26.4 (L) 36.0 - 45.2 % MCV 94.6 81.5 - 97.5 fL MCH 30.1 27.0 - 34.0 pg MCHC 31.8 32.0 - 36.0 g/dL RDW 17.9 11.5 - 15.5 % PLT 274 140 - 400 K/uL MPV 11.7 6.6 - 11.1 fL nRBCs 0 <=0 /100 WBCs *Note: Due to a large number of results and/or encounters for the requested time period, some results have not been displayed. A complete set of results can be found in Results Review. XR CHEST 1 VIEW Final Result PROCEDURE INFORMATION: Exam: XR Chest Exam date and time: 10/09/2023 10:38 AM Age: 58 years old Clinical indication: Other: F/u mf airspace disease TECHNIQUE: Imaging protocol: Radiologic exam of the chest. Views: 1 view. COMPARISON: DX XR CHEST 1 VIEW 10/02/2023 5:42 PM FINDINGS: Tubes, catheters and devices: None. Lungs: There are diffuse ground-glass and interstitial opacities seen bilaterally, greater on the right which have mildly improved on the right. Pleural spaces: No significant pleural effusion or pneumothorax. Heart/Mediastinum: No cardiomegaly. Bones/joints: Degenerative changes are seen in the spine, which is markedly scoliotic. IMPRESSION IMPRESSION: The diffuse ground-glass and interstitial opacities bilaterally, greater on the right have mildly improved on the right. THIS DOCUMENT HAS BEEN ELECTRONICALLY SIGNED BY TRINH MARTINEZ, DO XR SHOULDER, 2 OR MORE VIEWS Final Result PROCEDURE INFORMATION: Exam: XR Right Shoulder Exam date and time: 10/06/2023 1:21 PM Age: 58 years old Clinical indication: Other: Right shoulder pain, no known injury TECHNIQUE: Imaging protocol: Radiologic exam of the right shoulder. Views: 2 or more views. COMPARISON: VASC DUPLEX VENOUS LE UNILAT 04/10/2023 12:33 PM FINDINGS: Bones/joints: Diffuse osteopenia. No fracture or dislocation. Unremarkable glenohumeral joint. Unremarkable AC joint. Lungs: Right lung demonstrates diffuse hazy opacities without significant change compared to the 10/02/2023 CXR. Soft tissues: Normal. IMPRESSION IMPRESSION: 1. Unremarkable right shoulder. 2. Right lung demonstrates diffuse hazy opacities without significant change compared to the 10/02/2023 CXR. THIS DOCUMENT HAS BEEN ELECTRONICALLY SIGNED BY FELICIANO TOVAR MD IR LUMBAR PUNCTURE Final Result PROCEDURE: Diagnostic lumbar puncture . INDICATION: Workup for multiple sclerosis ATTENDING (OPERATING PHYSICIAN): Romana CONSENT: After a detailed discussion of the procedure, risks, benefits and alternative treatment options, informed consent was obtained. TIME OUT: A time out procedure was performed. The patient's identification was verified. Informed consent with agreement of procedure, site and position was obtained. All necessary equipment was available prior to procedure. CONTRAST: No contrast was administered. COMPLICATIONS: None. ANESTHESIA: Local lidocaine. MEDICATIONS: See MAR PROCEDURE DESCRIPTION: The lumbar area was prepped and draped in the usual sterile fashion. Using intermittent fluoroscopic guidance, attempts to access the L4-5 disc space failed. Using intermittent fluoroscopic guidance, the thecal sac was penetrated at the L5-S1 level with a 22 gauge 6 inch spinal needle with confirmation by immediate return of clear and colorless cerebrospinal fluid (CSF). Opening pressure measured mm CSF. CSF was collected in four tubes as labeled in consecutive order and sent to the lab for analysis. The needle was removed and the site was dressed. The procedure was performed by Dr. Avendano FINDINGS: Single spot image demonstrates the spinal needle at the L5-S1 level. Clear and colorless CSF was returned from the needle. IMPRESSION IMPRESSION: Successful fluoroscopic-guided diagnostic lumbar puncture PLAN: Follow-up of cerebrospinal fluid analysis and further management per primary team XR CHEST 1 VIEW Final Result PROCEDURE INFORMATION: Exam: XR Chest Exam date and time: 10/02/2023 5:42 PM Age: 58 years old Clinical indication: Other: SOB; Additional info: Lethargy, abnormal breathing pattern TECHNIQUE: Imaging protocol: Radiologic exam of the chest. Views: 1 view. COMPARISON: DX XR CHEST 1 VIEW 10/01/2023 11:06 PM FINDINGS: Tubes, catheters and devices: Left MediPort catheter is in stable position with the tip in the cavoatrial junction. Dumbbell-shaped device which likely represents a cystogastrostomy is seen in the left upper quadrant. Lungs: Redemonstration of stable diffuse ground-glass and interstitial opacities bilaterally greater on the right. Pleural spaces: Unremarkable. No pleural effusion. No pneumothorax. Heart/Mediastinum: Stable cardiomediastinal silhouette. Bones/joints: Degenerative changes with S-shaped scoliosis of the thoracic spine. Organs: Surgical clips in the right upper quadrant from prior cholecystectomy. IMPRESSION IMPRESSION: No change in the mixed airspace opacities bilaterally secondary to edema and/or pneumonia. THIS DOCUMENT HAS BEEN ELECTRONICALLY SIGNED BY DARIN VILLELA MD MRI T SPINE W WO CONTRAST Final Result EXAM: MRI T SPINE W WO CONTRAST HISTORY: Acute urinary retention, unsteady gait, concern for potential demyelinating disease TECHNIQUE: MRI of the thoracic spine was performed with and without intravenous Gadavist contrast COMPARISON: CT abdomen/pelvis 07/31/2023, MRI cervical spine 09/02/2023 FINDINGS: ALIGNMENT: Exaggeration of the midthoracic kyphosis. Severe dextroscoliosis centered at T7-T8 and levoscoliosis centered T12-L1. Stepwise right lateral listhesis of T10 on T11 and T11 on T12. BONES: Chronic anterior wedging of the T12 and L1 vertebral bodies with less than 50% total height loss. Mild chronic left lateral wedging of the T7 and T8 vertebral bodies and chronic right lateral wedging of the T11-L1 vertebral bodies. No aggressive appearing enhancing osseous lesions. DISCS: Multilevel disc desiccation and associated height loss. Asymmetric, chronic splaying of the right T6-T9 and left T10-L1 disc spaces. Scattered Schmorl's nodes throughout the thoracic spine. Modic 2 changes marginating the T12-L1 disc space. No abnormal intradiscal enhancement. SPINAL CORD: Extremely limited evaluation of the thoracic spinal cord due to extensive motion degradation. No obvious areas of abnormal enhancement, enhancement, or volume loss involving the thoracic spinal cord. Left lateral displacement of the upper/midthoracic cord related to scoliotic curvature of the spine. Grossly normal of the conus medullaris which terminates at around the level of T12-L1. No large epidural fluid collections. DISC LEVELS: Limited characterization of the individual disc levels due to motion degradation. Multilevel thoracic spondylosis with posterior disc bulges, facet arthrosis, and ligamentous thickening. No severe spinal canal stenosis appreciated. PARASPINAL SOFT TISSUES: Diffuse atrophy of the dorsal paraspinal musculature. Nondiagnostic evaluation of the upper abdominal contents. VISUALIZED INTRATHORACIC STRUCTURES: No lobar consolidations. IMPRESSION IMPRESSION: No obvious evidence of demyelinating disease involving the thoracic spinal cord, although evaluation is severely limited by motion degradation. If there is persistent concern for potential demyelinating disease, a repeat examination under sedation should be considered. Midthoracic dextroscoliosis and thoracolumbar levoscoliosis as described, associated with chronic multilevel vertebral body wedging and asymmetric disc space widening. Limited characterization of spondylitic changes at the individual disc levels. No evidence for severe thoracic spinal canal stenosis. XR CHEST 1 VIEW Final Result PROCEDURE INFORMATION: Exam: XR Chest Exam date and time: 10/01/2023 11:06 PM Age: 58 years old Clinical indication: Other: Worsening dyspnea TECHNIQUE: Imaging protocol: Radiologic exam of the chest. Views: 1 view. COMPARISON: DX XR CHEST 1 VIEW 10/01/2023 4:45 AM FINDINGS: Lungs: Persistent moderate vascular congestion/bilateral diffuse airspace disease. Left Daxcfp-T-Nrsy catheter noted. Pleural spaces: No pleural effusion. No pneumothorax. Heart/Mediastinum: No cardiomegaly. Bones/joints: Degenerative changes with scoliosis. IMPRESSION IMPRESSION: Persistent moderate vascular congestion/bilateral diffuse airspace disease. THIS DOCUMENT HAS BEEN ELECTRONICALLY SIGNED BY HANDY HUIZAR MD XR CHEST 1 VIEW Final Result PROCEDURE INFORMATION: Exam: XR Chest Exam date and time: 10/01/2023 4:45 AM Age: 58 years old Clinical indication: Other: Hypoxia; Additional info: Hypoxia. Please have patient sitting upright for study and not lying flat. TECHNIQUE: Imaging protocol: Radiologic exam of the chest. Views: 1 view. COMPARISON: DX XR CHEST 1 VIEW 10/01/2023 12:02 AM FINDINGS: Tubes, catheters and devices: A catheter which may represent an abandoned catheter from a prior left anterior chest wall port is again seen, with tip projecting over the superior vena cava. Lungs: Stable moderate bilateral patchy ground-glass and interstitial opacities in the mid to upper lungs. Pleural spaces: No pneumothorax. Trace left pleural effusion. Heart/Mediastinum: Mild cardiomegaly. Bones/joints: Moderate rotatory scoliosis. No acute or suspicious osseous abnormalities. Gastrointestinal tract: Partially imaged prominent air-filled bowel loops. Other findings: Cholecystectomy clips. A dumbbell-shaped device which may represent a cystogastrostomy device projects over the epigastric region. IMPRESSION IMPRESSION: 1. Stable moderate bilateral patchy ground-glass and interstitial opacities in the mid to upper lungs. This may represent multifocal pneumonia in the appropriate clinical setting. 2. Trace left pleural effusion. THIS DOCUMENT HAS BEEN ELECTRONICALLY SIGNED BY VERNA GIBSON MD XR CHEST 1 VIEW Final Result PROCEDURE INFORMATION: Exam: XR Chest Exam date and time: 10/01/2023 12:02 AM Age: 58 years old Clinical indication: Other: Lower back pain that shoots up her back, o2 levels dropped; Additional info: Spo2 drop and new back pain TECHNIQUE: Imaging protocol: Radiologic exam of the chest. Views: 1 view. COMPARISON: DX XR CHEST 1 VIEW 09/20/2023 2:28 PM FINDINGS: Tubes, catheters and devices: There appears to be an abandoned left port catheter with tip extending to the cavoatrial junction. Lungs: There is multifocal parenchymal consolidation which is significantly increased from the comparison study and could reflect multifocal pneumonia, ARDS, or edema. Pleural spaces: No large effusion or pneumothorax. Heart/Mediastinum: No evidence of mediastinal widening or cardiac silhouette enlargement; the mediastinum and heart appear within normal limits for contour and size. Bones/joints: No evidence of acute osseous abnormalities within the visualized portions of the thoracic spine and ribs. Osseous structures appear appropriate for patient age. Gastrointestinal tract: There is mild gaseous distention of partially visualized bowel loops. IMPRESSION IMPRESSION: There is multifocal parenchymal consolidation which is significantly increased from the comparison study and could reflect multifocal pneumonia, ARDS, or edema. THIS DOCUMENT HAS BEEN ELECTRONICALLY SIGNED BY EFRAIN GILMAN MD US RENAL Final Result PROCEDURE INFORMATION: Exam: US Retroperitoneal; Complete; Kidneys and Bladder Exam date and time: 09/29/2023 3:29 PM Age: 58 years old Clinical indication: Abnormal findings; Abnormal lab test; Abnormal kidney function lab tests; Prior surgery; Surgery date: 6+ months; Surgery type: RT nephrectomy; Additional info: Robinson. HX nephrectomy TECHNIQUE: Imaging protocol: Real-time ultrasound of the retroperitoneum with image documentation. Complete exam focused on the kidneys and bladder. COMPARISON: US PELVIS TRANS-ABDOMINAL 09/27/2023 11:15 AM FINDINGS: Right kidney: Surgically absent. Left kidney: 10.9 x 4.1 x 4.9 cm. 4 mm calcification in the midportion with moderate hydronephrosis. Urinary bladder: Distended bladder with increased postvoid residue. Bladder diverticulum. IMPRESSION IMPRESSION: Left kidney demonstrates 4 mm calcification in the midportion with moderate hydronephrosis. THIS DOCUMENT HAS BEEN ELECTRONICALLY SIGNED BY RUI MARTINEZ MD US PELVIS TRANS-ABDOMINAL Final Result PROCEDURE INFORMATION: Exam: US Nonobstetric Pelvis; Complete Exam date and time: 09/27/2023 11:15 AM Age: 58 years old Clinical indication: Abnormal findings; Abnormal imaging test; Additional info: Abnormal abd US TECHNIQUE: Imaging protocol: Transabdominal pelvic nonobstetric ultrasound. Complete exam. Real time ultrasound with image documentation. COMPARISON: US PELVIS TRANS-VAGINAL NON-OB 09/09/2020 8:48 AM FINDINGS: Uterus: Uterus is anteverted and measures 4.9 x 1.7 x 3.5 cm. Endometrial stripe is normal in thickness measuring 3.7 mm. Right ovary/adnexa: Not visualized. Left ovary/adnexa: Not visualized. Intraperitoneal space: No intraperitoneal fluid. Urinary bladder: Normal. IMPRESSION IMPRESSION: 1. Unremarkable appearance of the uterus and endometrium. 2. Nonvisualization of the ovaries. No adnexal masses. THIS DOCUMENT HAS BEEN ELECTRONICALLY SIGNED BY DARIN VILLELA MD XR ABDOMEN 1 VIEW Final Result PROCEDURE INFORMATION: Exam: XR Abdomen Exam date and time: 09/25/2023 9:00 AM Age: 58 years old Clinical indication: Other: Abd pain and tenderness pelvic area, bloating and constipation; Additional info: Abd pain and bloating TECHNIQUE: Imaging protocol: Radiologic exam of the abdomen. Views: Frontal supine view of the abdomen. 1 View. COMPARISON: CT ABDOMEN PELVIS WO(Adult) 07/31/2023 12:13 PM FINDINGS: Gastrointestinal tract: The stool and gas pattern is nonspecific. The stool and gas pattern is nonspecific. Intraperitoneal space: There is a stent identified in the left upper quadrant Organs: Surgical clips are seen from prior cholecystectomy. There is increased density over the pelvis. This may be due to the uterus. Gynecological follow-up is advised for assessment the endometrial stripe Vasculature: Vascular calcification is seen Bones/joints: There is a rotary scoliosis convex to the left within the spine Soft tissues: There surgical clips in the right inguinal region IMPRESSION IMPRESSION: Gynecological follow-up advised THIS DOCUMENT HAS BEEN ELECTRONICALLY SIGNED BY CARLOTTA ALEXANDER MD XR CHEST 1 VIEW Final Result PROCEDURE INFORMATION: Exam: XR Chest Exam date and time: 09/20/2023 2:28 PM Age: 58 years old Clinical indication: Other: General weakness; Additional info: Failure to thrive TECHNIQUE: Imaging protocol: Radiologic exam of the chest. Views: 1 view. COMPARISON: 1. DX XR CHEST 1 VIEW 12/11/2022 10:01 AM 2. Two-view chest x-ray 11/08/2022 FINDINGS: Tubes, catheters and devices: Left-sided central line, tip in the region of the cavoatrial junction, unchanged. Lungs: Persistent mild bronchial wall thickening. No developing focal infiltrate. Pleural spaces: No pleural effusion or pneumothorax. Heart/Mediastinum: Stable heart size. Bones/joints: Severe scoliosis thoracolumbar spine. Intraperitoneal space: Right upper quadrant clips. IMPRESSION IMPRESSION: 1. No acute cardiopulmonary disease. 2. Possible mild bronchitis. THIS DOCUMENT HAS BEEN ELECTRONICALLY SIGNED BY TERESA PATEL MD Results Pending at Discharge: Lab Results Pending at Discharge: BASIC METABOLIC PANEL Routine CULTURE, RESPIRATORY, UPPER, AEROBIC Routine VITAMIN B1 (THIAMINE), BLOOD, LC/MS/MS Routine MULTIPLE SCLEROSIS, SERUM Routine MULTIPLE SCLEROSIS PANEL 2 Routine MULTIPLE SCLEROSIS PANEL 2 Routine BASIC METABOLIC PANEL Routine PHOSPHORUS Routine MAGNESIUM Routine MEDICATION UPDATES AT DISCHARGE START taking these medications INSTRUCTIONS Ascorbic Acid 250 MG Tabs Take 1 Tablet by mouth daily at noon. busPIRone 5 MG Tablet Commonly known as: Buspar Take 1 Tablet by mouth in the morning and 1 Tablet at noon and 1 Tablet before bedtime. Cholestyramine Light 4 g powder Commonly known as: Prevalite Mix 1 packet in 4 to 6 ounces of your favorate NONCARBONATED beverage and stir vigorously and drinkby mouth daily in the morning. Ferrous Sulfate 325 (65 FE) MG Tablet Commonly known as: Feosol Take 1 Tablet by mouth daily at noon. oxyCODONE 5 MG immediate release tablet Commonly known as: Oxy IR Take 1 Tablet by mouth every 6 hours as needed for Pain, Breakthrough or Pain, Severe for up to 3 days. sodium bicarbonate 650 MG Tablet Take 2 Tablets by mouth in the morning and 2 Tablets before bedtime. vitamin b-12 1000 MCG/ML injection Commonly known as: Cyanocobalamin one injection monthly Vitamin E 400 UNIT Capsule Commonly known as: Aquasol E Take 1 Capsule by mouth in the morning. CHANGE how you take these medications INSTRUCTIONS Ergocalciferol 63535 UNIT Capsule Commonly known as: Vitamin D2(Drisdol) What changed: medication strength how much to take how to take this when to take this Take 1 Capsule by mouth once a day on Monday, Monday, and Monday only. CONTINUE taking these medications INSTRUCTIONS ALPRAZolam 0.25 MG Tablet Commonly known as: xaNAX Notes to patient: Used to treat anxiety and panic attacks Take 1 Tablet by mouth at bedtime as needed for Sleep. hgrtqlcyjq-zkrqisavqhght-ejlwbimz 50-325-40 mg per tab Commonly known as: [...] 2 Capsules by mouth in the morning. guaiFENesin-Codeine 100-10 MG/5ML syrup Commonly known as: Robitussin AC Notes to patient: Used to thin mucus so it can be taken from the body by coughing Take 5 mL by mouth every 4 hours as needed for Cough. Mirtazapine 45 MG Tablet Commonly known as: Remeron Notes to patient: Used to treat depression Take 1 Tablet by mouth at bedtime. nystatin 915240 UNIT/GM cream Notes to patient: Used to [...] Zofran Notes to patient: Used to treat nausea and vomiting PLACE 1 TABLET ON TONGUE EVERY 8 HOURS NEEDED FOR NAUSEA. Oyster Shell Calcium 500 MG Tablet Commonly known as: Oysco 500 Notes to patient: supplement Take 2 Tabs by mouth daily. Pregabalin [...] TAB BY MOUTH DAILY NEEDED FOR MIGRAINE. SUMAtriptan 50 MG Tablet Commonly known as: Imitrex Notes to patient: Used to treat migraine and cluster headaches MAX OF 2 TABS PER ATTACK AND NO MORE THAN 3 X WEEKLY zinc sulfate 220 MG Capsule Notes to patient: Used to help growth and good health Take 1 Capsule by mouth in the morning. SCHEDULED FOLLOW-UP: Future Appointments Appt Date/Time Provider Department 10/11/2023 3:00 PM Li Cano PA-C Family Medicine [facility] 10/17/2023 3:20 PM Olivia Hernandez MD Gastroenterology, [facility] 10/23/2023 9:20 AM Aris Mohr MD Neurology [facility] 11/08/2023 10:20 AM Evelyn Andrews MD Family Medicine [facility] 12/04/2023 3:45 PM Christopher Almonte MD Urology, [facility] Other Information Indwelling Devices: LINES ALL Duration Tunneled Central Cath Double Lumen Left Chest 304 days Urethral Catheter Coude 2 days Vital Signs (last recorded): Most Recent Systolic BP: 103 mmHg (10/10/23741) Most Recent Diastolic BP: 66 mmHg (10/10/23741) Pulse: 94 (10/10/23741) Resp: 18 (10/10/23741) Most Recent Temperature: 36.61 C (10/10/23741) Weight: 41.5 kg (91 lb 6.4 oz) (10/10/23 0800) SpO2: 90 % (10/10/23741) O2 flow rate: 2 L/MIN (10/09/23 07) Allergies: Amoxicillin, Sulfa antibiotics, and Oxybutynin Activity: as tolerated Diet: age appropriate diet Code Status: No Code Condition on Discharge: stable Isolation status: None Cognition: normal HOSPITAL CONSULTS ORDERED: ADULT PHYSICAL THERAPY CONSULT IP ADULT OCCUPATIONAL THERAPY CONSULT IP CARE MANAGEMENT CONSULT IP NUTRITION SERVICES (DIETITIAN) CONSULT IP PSYCHIATRY CONSULT IP NEPHROLOGY CONSULT IP UROLOGY CONSULT IP THORACIC MEDICINE / PULMONOLOGY CONSULT IP CRITICAL CARE MEDICINE CONSULT IP NEUROLOGY CONSULT IP CRITICAL CARE MEDICINE CONSULT IP REFERRING PHYSICIAN: Ref: FARHEEN JALLOH[[id number]] [address] [place] [address] (office) [phone] (fax) PRIMARY CARE PROVIDER: PCP: Evelyn Mobley MD [address] [place] [address] / Nancy RAMEY [phone] (office) [phone] (fax) Note: To contact a physician responsible for this patients hospital care, please call [facility] [phone]. I spent a total of 45 minutes coordinating, documenting, and providing care for this patient excluding time spent in the performance of separately billed services. documented in this encounter Discharge Instructions * Discharge Instr - AVS* Juan Zaragoza DO - 10/09/2023 2:01 PM EDT Discharge Date: 10/10/23 The information below provides you with the [...] for any questions or test results: Call [phone] For after-hours concerns: Call [phone] and have your provider paged, or the provider contract associate for the Department of Hospital Medicine paged. [...] available, you can go to your local [facility] or [facility] during their business hours. In an EMERGENCY situation: Call [phone] or go to the nearest emergency room. A BRIEF SUMMARY OF YOUR HOSPITAL STAY: You came to the hospital with: complaint of failure to thrive Your main diagnosis at discharge was: Acute respiratory failure with hypoxia in the setting of pulmonary edema and multifocal pneumonia, urinary retention, and ROBIN[facility] Operations & Procedures performed: Lumbar puncture Complications: none significant Inpatient test results that are pending at discharge: none Advance Directive Documented: Advance Directive Does the Patient have an Advance Directive? No YOUR FOLLOW UP APPOINTMENTS: Primary Care Provider Information: PCP: Evelyn Mobley MD [address] [place] [address] / [place] [phone] (office) [phone] (fax) An appointment was requested with your PCP (Evelyn Mobley MD) within 7 days. (Please take this form to this visit with your primary care physician.) You need the following studies in the future: none INSTRUCTIONS: Diet: Normal diet Activity: As tolerated Medication recommendations monthly B12 injections moving forward. oral vitamin-D 12999 units MWF oral iron supplementation vitamin-E 400 units daily Resolved back acid daily Oxycodone as needed 3 days q.4 hours BuSpar 5 mg TID Cholestyramine daily Ascorbic acid 250 mg daily Additional Instructions: - Call your primary care physician or seek medical attention if significant weight loss, shortness of breath, urinary retention. documented in this encounter Progress Notes * Juan Zaragoza DO - 10/09/2023 12:54 PM EDT Images from the original note were not included. [facility] [id number] INTERVAL HISTORY: 58-year-old female admitted on 09/19 for failure to thrive while on TPN. MRI T-spine with no obvious evidence of demyelinating disease involving the thoracic spine. LP on 10/04: CSF RBC 607, CSF glucose 87, CSF protein 29 Subjective: Patient evaluated at bedside. Patient continues to be adamant about not being on TPN. States she also does not want to go home on oxygen. Objective Physical Exam Most Recent Vital Signs: BP: 101 mmHg/82 mmHg (10/09/23 1103) Pulse: 91 (10/09/23 1103) Temp: 36.28 C (10/09/23 1103) Temp Summary: Temp Min: 36.1 C (97 F) Max: 36.6 C (97.9 F) SpO2: 92 % (10/09/23 1103) O2 flow rate: 2 L/MIN (10/09/23 0713) Supplemental O2 Delivery: Room Air, None (10/09/23 0900) Constitutional: no acute distress Neck: supple, normal range of motion CV: normal rate and rhythm, no murmur, gallops or rub Chest: normal respiratory effort, (+) decreased breath sounds bilaterally Abdomen: normal: soft, bowel sounds normal, no masses, tenderness or organomegaly Extremities: no clubbing, cyanosis, or edema, otherwise grossly normal, warm, and dry Skin: warm, dry, intact: Neuro: alert, oriented to person, place, and time Urethral Catheter Coude (Active) Number of days: 2 Tunneled Central Cath Double Lumen Left Chest (Active) Number of days: 304 STUDIES: Encounter Orders Labs and other studies reviewed with pertinent findings noted below: Results for orders placed or performed during the hospital encounter of 09/20/23 SARS-COV-2 (COVID-19), NAAT Result Value Ref Range SARS-CoV-2 (COVID-19) Result Negative Negative BASIC METABOLIC PANEL Result Value Ref Range BUN 37 (H) 6 - 20 mg/dL Creatinine 1.2 (H) 0.5 - 1.0 mg/dL Estimated Glomerular Filtration Rate 52 (L) >=60 mL/min Sodium 136 135 - 146 mmol/L Potassium 5.5 (H) 3.5 - 5.1 mmol/L Chloride 111 (H) 98 - 107 mmol/L CO2 13 (L) 22 - 32 mmol/L Anion Gap 12 7 - 15 mmol/L Glucose 99 70 - 120 mg/dL Calcium 8.1 (L) 8.4 - 10.2 mg/dL CALCIUM, IONIZED Result Value Ref Range Calcium, Ionized 1.34 (H) 1.13 - 1.32 mmol/L PHOSPHORUS Result Value Ref Range Phosphorus 5.0 (H) 2.5 - 4.8 mg/dL MAGNESIUM Result Value Ref Range Magnesium 1.9 1.5 - 2.6 mg/dL CBC Result Value Ref Range WBC 5.66 4.00 - 10.80 K/uL RBC 2.88 3.85 - 5.15 M/uL HGB 9.3 (L) 12.0 - 15.3 g/dL HCT 29.8 (L) 36.0 - 45.2 % MCV 103.5 81.5 - 97.5 fL MCH 32.3 27.0 - 34.0 pg MCHC 31.2 32.0 - 36.0 g/dL RDW 14.8 11.5 - 15.5 % PLT 330 140 - 400 K/uL MPV 11.1 6.6 - 11.1 fL nRBCs 0 <=0 /100 WBCs BASIC METABOLIC PANEL Result Value Ref Range BUN 39 (H) 6 - 20 mg/dL Creatinine 1.1 (H) 0.5 - 1.0 mg/dL Estimated Glomerular Filtration Rate 57 (L) >=60 mL/min Sodium 135 135 - 146 mmol/L Potassium 5.1 3.5 - 5.1 mmol/L Chloride 112 (H) 98 - 107 mmol/L CO2 16 (L) 22 - 32 mmol/L Anion Gap 7 7 - 15 mmol/L Glucose 88 70 - 120 mg/dL Calcium 8.2 (L) 8.4 - 10.2 mg/dL PHOSPHORUS Result Value Ref Range Phosphorus 3.2 2.5 - 4.8 mg/dL MAGNESIUM Result Value Ref Range Magnesium 1.9 1.5 - 2.6 mg/dL VITAMIN A (RETINOL) Result Value Ref Range Vitamin A (Retinol) 51 38 - 98 mcg/dL 25-HYDROXY VITAMIN D Result Value Ref Range 25-Hydroxy Vitamin D 9 (L) >19 ng/mL VITAMIN E (TOCOPHEROL) Result Value Ref Range Alpha-Tocopherol 4.6 (L) 5.7 - 19.9 mg/L Rqyg-[id number]-Phikyliygc 2.6 <=4.3 mg/L VITAMIN K Result Value Ref Range Vitamin K >2500 (H) 130 - 1500 pg/mL VITAMIN B1 (THIAMINE), BLOOD, LC/MS/MS Result Value Ref Range Vitamin B1 (Thiamine),B 250 (H) 78 - 185 nmol/L FOLIC ACID Result Value Ref Range Folic Acid 8.2 >4.5 ng/mL VITAMIN B12 Result Value Ref Range Vitamin B12 398 232 - 1,245 pg/mL METHYLMALONIC ACID, SERUM Result Value Ref Range Methylmalonic Acid 2045 (H) 87 - 318 nmol/L COPPER, SERUM OR PLASMA Result Value Ref Range Copper 85 70 - 175 mcg/dL ZINC Result Value Ref Range Zinc 38 (L) 60 - 130 mcg/dL IRON SCREEN, INCLUDING TIBC Result Value Ref Range Iron 39 33 - 151 ug/dL Iron Binding Capacity 258 250 - 425 ug/dL Transferrin Saturation Percent 15 15 - 55 % FERRITIN Result Value Ref Range Ferritin 16 13 - 150 ng/mL BASIC METABOLIC PANEL Result Value Ref Range BUN 45 (H) 6 - 20 mg/dL Creatinine 1.1 (H) 0.5 - 1.0 mg/dL Estimated Glomerular Filtration Rate 58 (L) >=60 mL/min Sodium 134 (L) 135 - 146 mmol/L Potassium 5.7 (H) 3.5 - 5.1 mmol/L Chloride 107 98 - 107 mmol/L CO2 16 (L) 22 - 32 mmol/L Anion Gap 11 7 - 15 mmol/L Glucose 150 (H) 70 - 120 mg/dL Calcium 8.5 8.4 - 10.2 mg/dL PHOSPHORUS Result Value Ref Range Phosphorus 3.9 2.5 - 4.8 mg/dL MAGNESIUM Result Value Ref Range Magnesium 2.0 1.5 - 2.6 mg/dL BASIC METABOLIC PANEL Result Value Ref Range BUN 47 (H) 6 - 20 mg/dL Creatinine 1.0 0.5 - 1.0 mg/dL Estimated Glomerular Filtration Rate 63 >=60 mL/min Sodium 136 135 - 146 mmol/L Potassium 4.4 3.5 - 5.1 mmol/L Chloride 110 (H) 98 - 107 mmol/L CO2 17 (L) 22 - 32 mmol/L Anion Gap 9 7 - 15 mmol/L Glucose 95 70 - 120 mg/dL Calcium 7.8 (L) 8.4 - 10.2 mg/dL PHOSPHORUS Result Value Ref Range Phosphorus 4.2 2.5 - 4.8 mg/dL MAGNESIUM Result Value Ref Range Magnesium 2.0 1.5 - 2.6 mg/dL URINALYSIS, REFLEX TO MICROSCOPIC Result Value Ref Range Color, Urine Yellow Light Yellow, Yellow, Dark Yellow Clarity, Urine Clear Clear Glucose, Urine Negative Negative mg/dL Bilirubin, Urine Negative Negative Ketone, Urine Negative Negative mg/dL Specific [place], Urine 1.015 1.003 - 1.030 Blood, Urine Negative Negative pH, Urine 6.0 5.0 - 7.5 Units Protein, Urine Negative Negative mg/dL Urobilinogen, Urine 0.2 0.2, 1.0 mg/dL Nitrite, Urine Negative Negative Esterase, Urine Negative Negative Comment, Urine BASIC METABOLIC PANEL Result Value Ref Range BUN 66 (H) 6 - 20 mg/dL Creatinine 1.2 (H) 0.5 - 1.0 mg/dL Estimated Glomerular Filtration Rate 50 (L) >=60 mL/min Sodium 139 135 - 146 mmol/L Potassium 4.5 3.5 - 5.1 mmol/L Chloride 110 (H) 98 - 107 mmol/L CO2 16 (L) 22 - 32 mmol/L Anion Gap 13 7 - 15 mmol/L Glucose 116 70 - 120 mg/dL Calcium 8.6 8.4 - 10.2 mg/dL PHOSPHORUS Result Value Ref Range Phosphorus 4.6 2.5 - 4.8 mg/dL MAGNESIUM Result Value Ref Range Magnesium 2.3 1.5 - 2.6 mg/dL BASIC METABOLIC PANEL Result Value Ref Range BUN 82 (H) 6 - 20 mg/dL Creatinine 1.5 (H) 0.5 - 1.0 mg/dL Estimated Glomerular Filtration Rate 39 (L) >=60 mL/min Sodium 137 135 - 146 mmol/L Potassium 4.5 3.5 - 5.1 mmol/L Chloride 107 98 - 107 mmol/L CO2 15 (L) 22 - 32 mmol/L Anion Gap 15 7 - 15 mmol/L Glucose 96 70 - 120 mg/dL Calcium 8.3 (L) 8.4 - 10.2 mg/dL PHOSPHORUS Result Value Ref Range Phosphorus 5.4 (H) 2.5 - 4.8 mg/dL MAGNESIUM Result Value Ref Range Magnesium 2.5 1.5 - 2.6 mg/dL BASIC METABOLIC PANEL Result Value Ref Range BUN 83 (H) 6 - 20 mg/dL Creatinine 1.6 (H) 0.5 - 1.0 mg/dL Estimated Glomerular Filtration Rate 38 (L) >=60 mL/min Sodium 134 (L) 135 - 146 mmol/L Potassium 4.5 3.5 - 5.1 mmol/L Chloride 106 98 - 107 mmol/L CO2 15 (L) 22 - 32 mmol/L Anion Gap 13 7 - 15 mmol/L Glucose 118 70 - 120 mg/dL Calcium 8.5 8.4 - 10.2 mg/dL PHOSPHORUS Result Value Ref Range Phosphorus 4.3 2.5 - 4.8 mg/dL MAGNESIUM Result Value Ref Range Magnesium 2.5 1.5 - 2.6 mg/dL HEPATIC FUNCTION PANEL Result Value Ref Range Albumin 3.0 (L) 3.8 - 5.0 g/dL AST 22 10 - 35 U/L Alkaline Phosphatase 112 35 - 130 U/L ALT 30 10 - 35 U/L Bilirubin, Total <0.2 <=1.2 mg/dL Bilirubin, Direct <0.2 0.0 - 0.3 mg/dL Protein 5.8 (L) 6.0 - 8.3 g/dL TRIGLYCERIDES Result Value Ref Range Triglycerides 101 <=174 mg/dL CALCIUM, IONIZED Result Value Ref Range Calcium, Ionized 1.27 1.13 - 1.32 mmol/L BASIC METABOLIC PANEL Result Value Ref Range BUN 83 (H) 6 - 20 mg/dL Creatinine 1.6 (H) 0.5 - 1.0 mg/dL Estimated Glomerular Filtration Rate 37 (L) >=60 mL/min Sodium 136 135 - 146 mmol/L Potassium 4.7 3.5 - 5.1 mmol/L Chloride 107 98 - 107 mmol/L CO2 16 (L) 22 - 32 mmol/L Anion Gap 13 7 - 15 mmol/L Glucose 118 70 - 120 mg/dL Calcium 8.4 8.4 - 10.2 mg/dL PHOSPHORUS Result Value Ref Range Phosphorus 4.3 2.5 - 4.8 mg/dL MAGNESIUM Result Value Ref Range Magnesium 2.6 1.5 - 2.6 mg/dL BASIC METABOLIC PANEL Result Value Ref Range BUN 91 (H) 6 - 20 mg/dL Creatinine 1.9 (H) 0.5 - 1.0 mg/dL Estimated Glomerular Filtration Rate 29 (L) >=60 mL/min Sodium 136 135 - 146 mmol/L Potassium 4.8 3.5 - 5.1 mmol/L Chloride 106 98 - 107 mmol/L CO2 15 (L) 22 - 32 mmol/L Anion Gap 15 7 - 15 mmol/L Glucose 139 (H) 70 - 120 mg/dL Calcium 8.1 (L) 8.4 - 10.2 mg/dL PHOSPHORUS Result Value Ref Range Phosphorus 3.9 2.5 - 4.8 mg/dL MAGNESIUM Result Value Ref Range Magnesium 2.5 1.5 - 2.6 mg/dL BASIC METABOLIC PANEL Result Value Ref Range BUN 102 (H) 6 - 20 mg/dL Creatinine 2.2 (H) 0.5 - 1.0 mg/dL Estimated Glomerular Filtration Rate 25 (L) >=60 mL/min Sodium 135 135 - 146 mmol/L Potassium 4.5 3.5 - 5.1 mmol/L Chloride 106 98 - 107 mmol/L CO2 13 (L) 22 - 32 mmol/L Anion Gap 16 (H) 7 - 15 mmol/L Glucose 151 (H) 70 - 120 mg/dL Calcium 8.2 (L) 8.4 - 10.2 mg/dL PHOSPHORUS Result Value Ref Range Phosphorus 4.3 2.5 - 4.8 mg/dL MAGNESIUM Result Value Ref Range Magnesium 2.6 1.5 - 2.6 mg/dL TROPONIN T, HIGH SENSITIVITY Result Value Ref Range Troponin T, High Sensitivity 41 (H) <=14 ng/L PHOSPHORUS Result Value Ref Range Phosphorus 3.6 2.5 - 4.8 mg/dL MAGNESIUM Result Value Ref Range Magnesium 2.4 1.5 - 2.6 mg/dL RESPIRATORY PATHOGEN PANEL, PCR Result Value Ref Range Adenovirus by PCR Negative Negative Coronavirus 229E by PCR Negative Negative Coronavirus HKU1 by PCR Negative Negative Coronavirus NL63 by PCR Negative Negative Coronavirus OC43 by PCR Negative Negative Coronavirus SARS-CoV-2 by PCR Negative Negative Human Metapneumovirus by PCR Negative Negative Rhinovirus/Enterovirus by PCR Negative Negative Influenza A Virus by PCR Negative Negative Influenza B Virus by PCR Negative Negative Parainfluenza Virus 1 by PCR Negative Negative Parainfluenza Virus 2 by PCR Negative Negative Parainfluenza Virus 3 by PCR Negative Negative Parainfluenza Virus 4 by PCR Negative Negative Respiratory Syncytial Virus by PCR Negative Negative Bordetella pertussis by PCR Negative Negative Chlamydia pneumoniae by PCR Negative Negative Mycoplasma pneumoniae by PCR Negative Negative Bordetella parapertussis by PCR Negative Negative CULTURE, BLOOD Result Value Ref Range Blood Culture Growth No growth CULTURE, BLOOD Result Value Ref Range Blood Culture Growth No growth BASIC METABOLIC PANEL Result Value Ref Range BUN 92 (H) 6 - 20 mg/dL Creatinine 1.8 (H) 0.5 - 1.0 mg/dL Estimated Glomerular Filtration Rate 31 (L) >=60 mL/min Sodium 136 135 - 146 mmol/L Potassium 3.7 3.5 - 5.1 mmol/L Chloride 105 98 - 107 mmol/L CO2 15 (L) 22 - 32 mmol/L Anion Gap 16 (H) 7 - 15 mmol/L Glucose 171 (H) 70 - 120 mg/dL Calcium 8.3 (L) 8.4 - 10.2 mg/dL CBC Result Value Ref Range WBC 17.65 (H) 4.00 - 10.80 K/uL RBC 2.33 3.85 - 5.15 M/uL HGB 7.6 (L) 12.0 - 15.3 g/dL HCT 23.5 (L) 36.0 - 45.2 % MCV 100.9 81.5 - 97.5 fL MCH 32.6 27.0 - 34.0 pg MCHC 32.3 32.0 - 36.0 g/dL RDW 14.0 11.5 - 15.5 % PLT 297 140 - 400 K/uL MPV 11.8 6.6 - 11.1 fL nRBCs 0 <=0 /100 WBCs BLOOD GAS, ARTERIAL Result Value Ref Range Temperature 37.0 C pH, Arterial 7.343 (L) 7.350 - 7.450 units pCO2, Arterial 32.2 (L) 35.0 - 45.0 mmHg pO2, Arterial 80.2 75.0 - 100.0 mmHg Base Excess, Arterial -7.5 (L) -2.0 - 2.0 mmol/L HGB 7.1 (L) 12.0 - 15.3 g/dL Oxyhemoglobin, Arterial 90.0 (L) 94.0 - 99.0 % total Hgb Carboxyhemoglobin, Whole Blood 0.7 <=1.5 % total Hgb Methemoglobin, Whole Blood 2.7 (H) <=1.5 % total Hgb Reduced Hemoglobin, Arterial 6.6 (H) 0.0 - 5.0 % total Hgb O2 Content, Arterial 9.2 (L) 15.0 - 24.0 %vol FiO2 Not Provided % O2 Flow, Arterial 4 L/min Bicarbonate, Whole Blood 17.0 (L) 23.0 - 31.0 mmol/L LACTATE Result Value Ref Range Lactate 0.9 0.4 - 2.0 mmol/L CBC Result Value Ref Range WBC 17.02 (H) 4.00 - 10.80 K/uL RBC 2.27 3.85 - 5.15 M/uL HGB 7.2 (L) 12.0 - 15.3 g/dL HCT 23.0 (L) 36.0 - 45.2 % MCV 101.3 81.5 - 97.5 fL MCH 31.7 27.0 - 34.0 pg MCHC 31.3 32.0 - 36.0 g/dL RDW 14.2 11.5 - 15.5 % PLT 289 140 - 400 K/uL MPV 11.8 6.6 - 11.1 fL nRBCs 0 <=0 /100 WBCs TYPE AND SCREEN Result Value Ref Range ABO A Rh Positive Red Blood Cell Antibody Screen Negative Specimen Expiration Date 10/04/2023 23:59 PROCALCITONIN Result Value Ref Range Procalcitonin 0.40 (H) <0.10 ng/mL CBC Result Value Ref Range WBC 17.00 (H) 4.00 - 10.80 K/uL RBC 2.79 3.85 - 5.15 M/uL HGB 8.4 (L) 12.0 - 15.3 g/dL HCT 26.4 (L) 36.0 - 45.2 % MCV 94.6 81.5 - 97.5 fL MCH 30.1 27.0 - 34.0 pg MCHC 31.8 32.0 - 36.0 g/dL RDW 17.9 11.5 - 15.5 % PLT 274 140 - 400 K/uL MPV 11.7 6.6 - 11.1 fL nRBCs 0 <=0 /100 WBCs *Note: Due to a large number of results and/or encounters for the requested time period, some results have not been displayed. A complete set of results can be found in Results Review. XR CHEST 1 VIEW Final Result PROCEDURE INFORMATION: Exam: XR Chest Exam date and time: 10/09/2023 10:38 AM Age: 58 years old Clinical indication: Other: F/u mf airspace disease TECHNIQUE: Imaging protocol: Radiologic exam of the chest. Views: 1 view. COMPARISON: DX XR CHEST 1 VIEW 10/02/2023 5:42 PM FINDINGS: Tubes, catheters and devices: None. Lungs: There are diffuse ground-glass and interstitial opacities seen bilaterally, greater on the right which have mildly improved on the right. Pleural spaces: No significant pleural effusion or pneumothorax. Heart/Mediastinum: No cardiomegaly. Bones/joints: Degenerative changes are seen in the spine, which is markedly scoliotic. IMPRESSION IMPRESSION: The diffuse ground-glass and interstitial opacities bilaterally, greater on the right have mildly improved on the right. THIS DOCUMENT HAS BEEN ELECTRONICALLY SIGNED BY TRINH MARTINEZ DO XR SHOULDER, 2 OR MORE VIEWS Final Result PROCEDURE INFORMATION: Exam: XR Right Shoulder Exam date and time: 10/06/2023 1:21 PM Age: 58 years old Clinical indication: Other: Right shoulder pain, no known injury TECHNIQUE: Imaging protocol: Radiologic exam of the right shoulder. Views: 2 or more views. COMPARISON: VASC DUPLEX VENOUS LE UNILAT 04/10/2023 12:33 PM FINDINGS: Bones/joints: Diffuse osteopenia. No fracture or dislocation. Unremarkable glenohumeral joint. Unremarkable AC joint. Lungs: Right lung demonstrates diffuse hazy opacities without significant change compared to the 10/02/2023 CXR. Soft tissues: Normal. IMPRESSION IMPRESSION: 1. Unremarkable right shoulder. 2. Right lung demonstrates diffuse hazy opacities without significant change compared to the 10/02/2023 CXR. THIS DOCUMENT HAS BEEN ELECTRONICALLY SIGNED BY FELICIANO TOVAR MD IR LUMBAR PUNCTURE Final Result PROCEDURE: Diagnostic lumbar puncture . INDICATION: Workup for multiple sclerosis ATTENDING (OPERATING PHYSICIAN): Romana CONSENT: After a detailed discussion of the procedure, risks, benefits and alternative treatment options, informed consent was obtained. TIME OUT: A time out procedure was performed. The patient's identification was verified. Informed consent with agreement of procedure, site and position was obtained. All necessary equipment was available prior to procedure. CONTRAST: No contrast was administered. COMPLICATIONS: None. ANESTHESIA: Local lidocaine. MEDICATIONS: See MAR PROCEDURE DESCRIPTION: The lumbar area was prepped and draped in the usual sterile fashion. Using intermittent fluoroscopic guidance, attempts to access the L4-5 disc space failed. Using intermittent fluoroscopic guidance, the thecal sac was penetrated at the L5-S1 level with a 22 gauge 6 inch spinal needle with confirmation by immediate return of clear and colorless cerebrospinal fluid (CSF). Opening pressure measured mm CSF. CSF was collected in four tubes as labeled in consecutive order and sent to the lab for analysis. The needle was removed and the site was dressed. The procedure was performed by Dr. Avendano FINDINGS: Single spot image demonstrates the spinal needle at the L5-S1 level. Clear and colorless CSF was returned from the needle. IMPRESSION IMPRESSION: Successful fluoroscopic-guided diagnostic lumbar puncture PLAN: Follow-up of cerebrospinal fluid analysis and further management per primary team XR CHEST 1 VIEW Final Result PROCEDURE INFORMATION: Exam: XR Chest Exam date and time: 10/02/2023 5:42 PM Age: 58 years old Clinical indication: Other: SOB; Additional info: Lethargy, abnormal breathing pattern TECHNIQUE: Imaging protocol: Radiologic exam of the chest. Views: 1 view. COMPARISON: DX XR CHEST 1 VIEW 10/01/2023 11:06 PM FINDINGS: Tubes, catheters and devices: Left MediPort catheter is in stable position with the tip in the cavoatrial junction. Dumbbell-shaped device which likely represents a cystogastrostomy is seen in the left upper quadrant. Lungs: Redemonstration of stable diffuse ground-glass and interstitial opacities bilaterally greater on the right. Pleural spaces: Unremarkable. No pleural effusion. No pneumothorax. Heart/Mediastinum: Stable cardiomediastinal silhouette. Bones/joints: Degenerative changes with S-shaped scoliosis of the thoracic spine. Organs: Surgical clips in the right upper quadrant from prior cholecystectomy. IMPRESSION IMPRESSION: No change in the mixed airspace opacities bilaterally secondary to edema and/or pneumonia. THIS DOCUMENT HAS BEEN ELECTRONICALLY SIGNED BY DARIN VILLELA MD MRI T SPINE W WO CONTRAST Final Result EXAM: MRI T SPINE W WO CONTRAST HISTORY: Acute urinary retention, unsteady gait, concern for potential demyelinating disease TECHNIQUE: MRI of the thoracic spine was performed with and without intravenous Gadavist contrast COMPARISON: CT abdomen/pelvis 07/31/2023, MRI cervical spine 09/02/2023 FINDINGS: ALIGNMENT: Exaggeration of the midthoracic kyphosis. Severe dextroscoliosis centered at T7-T8 and levoscoliosis centered T12-L1. Stepwise right lateral listhesis of T10 on T11 and T11 on T12. BONES: Chronic anterior wedging of the T12 and L1 vertebral bodies with less than 50% total height loss. Mild chronic left lateral wedging of the T7 and T8 vertebral bodies and chronic right lateral wedging of the T11-L1 vertebral bodies. No aggressive appearing enhancing osseous lesions. DISCS: Multilevel disc desiccation and associated height loss. Asymmetric, chronic splaying of the right T6-T9 and left T10-L1 disc spaces. Scattered Schmorl's nodes throughout the thoracic spine. Modic 2 changes marginating the T12-L1 disc space. No abnormal intradiscal enhancement. SPINAL CORD: Extremely limited evaluation of the thoracic spinal cord due to extensive motion degradation. No obvious areas of abnormal enhancement, enhancement, or volume loss involving the thoracic spinal cord. Left lateral displacement of the upper/midthoracic cord related to scoliotic curvature of the spine. Grossly normal of the conus medullaris which terminates at around the level of T12-L1. No large epidural fluid collections. DISC LEVELS: Limited characterization of the individual disc levels due to motion degradation. Multilevel thoracic spondylosis with posterior disc bulges, facet arthrosis, and ligamentous thickening. No severe spinal canal stenosis appreciated. PARASPINAL SOFT TISSUES: Diffuse atrophy of the dorsal paraspinal musculature. Nondiagnostic evaluation of the upper abdominal contents. VISUALIZED INTRATHORACIC STRUCTURES: No lobar consolidations. IMPRESSION IMPRESSION: No obvious evidence of demyelinating disease involving the thoracic spinal cord, although evaluation is severely limited by motion degradation. If there is persistent concern for potential demyelinating disease, a repeat examination under sedation should be considered. Midthoracic dextroscoliosis and thoracolumbar levoscoliosis as described, associated with chronic multilevel vertebral body wedging and asymmetric disc space widening. Limited characterization of spondylitic changes at the individual disc levels. No evidence for severe thoracic spinal canal stenosis. XR CHEST 1 VIEW Final Result PROCEDURE INFORMATION: Exam: XR Chest Exam date and time: 10/01/2023 11:06 PM Age: 58 years old Clinical indication: Other: Worsening dyspnea TECHNIQUE: Imaging protocol: Radiologic exam of the chest. Views: 1 view. COMPARISON: DX XR CHEST 1 VIEW 10/01/2023 4:45 AM FINDINGS: Lungs: Persistent moderate vascular congestion/bilateral diffuse airspace disease. Left Noqolj-O-Tovr catheter noted. Pleural spaces: No pleural effusion. No pneumothorax. Heart/Mediastinum: No cardiomegaly. Bones/joints: Degenerative changes with scoliosis. IMPRESSION IMPRESSION: Persistent moderate vascular congestion/bilateral diffuse airspace disease. THIS DOCUMENT HAS BEEN ELECTRONICALLY SIGNED BY HANDY HUIZAR MD XR CHEST 1 VIEW Final Result PROCEDURE INFORMATION: Exam: XR Chest Exam date and time: 10/01/2023 4:45 AM Age: 58 years old Clinical indication: Other: Hypoxia; Additional info: Hypoxia. Please have patient sitting upright for study and not lying flat. TECHNIQUE: Imaging protocol: Radiologic exam of the chest. Views: 1 view. COMPARISON: DX XR CHEST 1 VIEW 10/01/2023 12:02 AM FINDINGS: Tubes, catheters and devices: A catheter which may represent an abandoned catheter from a prior left anterior chest wall port is again seen, with tip projecting over the superior vena cava. Lungs: Stable moderate bilateral patchy ground-glass and interstitial opacities in the mid to upper lungs. Pleural spaces: No pneumothorax. Trace left pleural effusion. Heart/Mediastinum: Mild cardiomegaly. Bones/joints: Moderate rotatory scoliosis. No acute or suspicious osseous abnormalities. Gastrointestinal tract: Partially imaged prominent air-filled bowel loops. Other findings: Cholecystectomy clips. A dumbbell-shaped device which may represent a cystogastrostomy device projects over the epigastric region. IMPRESSION IMPRESSION: 1. Stable moderate bilateral patchy ground-glass and interstitial opacities in the mid to upper lungs. This may represent multifocal pneumonia in the appropriate clinical setting. 2. Trace left pleural effusion. THIS DOCUMENT HAS BEEN ELECTRONICALLY SIGNED BY VERNA GIBSON MD XR CHEST 1 VIEW Final Result PROCEDURE INFORMATION: Exam: XR Chest Exam date and time: 10/01/2023 12:02 AM Age: 58 years old Clinical indication: Other: Lower back pain that shoots up her back, o2 levels dropped; Additional info: Spo2 drop and new back pain TECHNIQUE: Imaging protocol: Radiologic exam of the chest. Views: 1 view. COMPARISON: DX XR CHEST 1 VIEW 09/20/2023 2:28 PM FINDINGS: Tubes, catheters and devices: There appears to be an abandoned left port catheter with tip extending to the cavoatrial junction. Lungs: There is multifocal parenchymal consolidation which is significantly increased from the comparison study and could reflect multifocal pneumonia, ARDS, or edema. Pleural spaces: No large effusion or pneumothorax. Heart/Mediastinum: No evidence of mediastinal widening or cardiac silhouette enlargement; the mediastinum and heart appear within normal limits for contour and size. Bones/joints: No evidence of acute osseous abnormalities within the visualized portions of the thoracic spine and ribs. Osseous structures appear appropriate for patient age. Gastrointestinal tract: There is mild gaseous distention of partially visualized bowel loops. IMPRESSION IMPRESSION: There is multifocal parenchymal consolidation which is significantly increased from the comparison study and could reflect multifocal pneumonia, ARDS, or edema. THIS DOCUMENT HAS BEEN ELECTRONICALLY SIGNED BY EFRAIN GILMAN MD US RENAL Final Result PROCEDURE INFORMATION: Exam: US Retroperitoneal; Complete; Kidneys and Bladder Exam date and time: 09/29/2023 3:29 PM Age: 58 years old Clinical indication: Abnormal findings; Abnormal lab test; Abnormal kidney function lab tests; Prior surgery; Surgery date: 6+ months; Surgery type: RT nephrectomy; Additional info: Robinson. HX nephrectomy TECHNIQUE: Imaging protocol: Real-time ultrasound of the retroperitoneum with image documentation. Complete exam focused on the kidneys and bladder. COMPARISON: US PELVIS TRANS-ABDOMINAL 09/27/2023 11:15 AM FINDINGS: Right kidney: Surgically absent. Left kidney: 10.9 x 4.1 x 4.9 cm. 4 mm calcification in the midportion with moderate hydronephrosis. Urinary bladder: Distended bladder with increased postvoid residue. Bladder diverticulum. IMPRESSION IMPRESSION: Left kidney demonstrates 4 mm calcification in the midportion with moderate hydronephrosis. THIS DOCUMENT HAS BEEN ELECTRONICALLY SIGNED BY RUI MARTINEZ MD US PELVIS TRANS-ABDOMINAL Final Result PROCEDURE INFORMATION: Exam: US Nonobstetric Pelvis; Complete Exam date and time: 09/27/2023 11:15 AM Age: 58 years old Clinical indication: Abnormal findings; Abnormal imaging test; Additional info: Abnormal abd US TECHNIQUE: Imaging protocol: Transabdominal pelvic nonobstetric ultrasound. Complete exam. Real time ultrasound with image documentation. COMPARISON: US PELVIS TRANS-VAGINAL NON-OB 09/09/2020 8:48 AM FINDINGS: Uterus: Uterus is anteverted and measures 4.9 x 1.7 x 3.5 cm. Endometrial stripe is normal in thickness measuring 3.7 mm. Right ovary/adnexa: Not visualized. Left ovary/adnexa: Not visualized. Intraperitoneal space: No intraperitoneal fluid. Urinary bladder: Normal. IMPRESSION IMPRESSION: 1. Unremarkable appearance of the uterus and endometrium. 2. Nonvisualization of the ovaries. No adnexal masses. THIS DOCUMENT HAS BEEN ELECTRONICALLY SIGNED BY DARIN VILLELA MD XR ABDOMEN 1 VIEW Final Result PROCEDURE INFORMATION: Exam: XR Abdomen Exam date and time: 09/25/2023 9:00 AM Age: 58 years old Clinical indication: Other: Abd pain and tenderness pelvic area, bloating and constipation; Additional info: Abd pain and bloating TECHNIQUE: Imaging protocol: Radiologic exam of the abdomen. Views: Frontal supine view of the abdomen. 1 View. COMPARISON: CT ABDOMEN PELVIS WO(Adult) 07/31/2023 12:13 PM FINDINGS: Gastrointestinal tract: The stool and gas pattern is nonspecific. The stool and gas pattern is nonspecific. Intraperitoneal space: There is a stent identified in the left upper quadrant Organs: Surgical clips are seen from prior cholecystectomy. There is increased density over the pelvis. This may be due to the uterus. Gynecological follow-up is advised for assessment the endometrial stripe Vasculature: Vascular calcification is seen Bones/joints: There is a rotary scoliosis convex to the left within the spine Soft tissues: There surgical clips in the right inguinal region IMPRESSION IMPRESSION: Gynecological follow-up advised THIS DOCUMENT HAS BEEN ELECTRONICALLY SIGNED BY CARLOTTA ALEXANDER MD XR CHEST 1 VIEW Final Result PROCEDURE INFORMATION: Exam: XR Chest Exam date and time: 09/20/2023 2:28 PM Age: 58 years old Clinical indication: Other: General weakness; Additional info: Failure to thrive TECHNIQUE: Imaging protocol: Radiologic exam of the chest. Views: 1 view. COMPARISON: 1. DX XR CHEST 1 VIEW 12/11/2022 10:01 AM 2. Two-view chest x-ray 11/08/2022 FINDINGS: Tubes, catheters and devices: Left-sided central line, tip in the region of the cavoatrial junction, unchanged. Lungs: Persistent mild bronchial wall thickening. No developing focal infiltrate. Pleural spaces: No pleural effusion or pneumothorax. Heart/Mediastinum: Stable heart size. Bones/joints: Severe scoliosis thoracolumbar spine. Intraperitoneal space: Right upper quadrant clips. IMPRESSION IMPRESSION: 1. No acute cardiopulmonary disease. 2. Possible mild bronchitis. THIS DOCUMENT HAS BEEN ELECTRONICALLY SIGNED BY TERESA PATEL MD Assessment and Plan IMPRESSION : Principal Problem: Failure to thrive in adult Active Problems: Anemia Intestinal postoperative nonabsorption Chronic pain syndrome Hereditary and idiopathic peripheral neuropathy Cachexia (HCC) On total parenteral nutrition (TPN) MDD (major depressive disorder), recurrent episode, moderate (HCC) Bipolar disorder (HCC) Tobacco abuse Fall at home Generalized weakness Adjustment disorder ROBINSON (acute kidney injury) (HCC) Acute urinary retention Hypoxia Multifocal pneumonia Acute hypoxic respiratory failure (HCC) Mixed incontinence Retention of urine Acute pain of right shoulder Resolved Problems: * No resolved hospital problems. * I have examined the patient and consistent with the dietitian's findings found malnutrition presentof Severe (09/21/23 1019) degree. This is consistent with such due to Fat loss;Muscle loss;Inadequate energy intake;Weight loss (09/21/23 1019). I have also reviewed and agree with the dietitian's plan of care which include Nutrition support monitoring;Oral nutritional supplement ordered/adjusted (10/05/23 1412). DIFFERENTIAL AND PLAN: - discussion had with patient today and she is still adamant about not being on TPN this was discussed with Dr Wilkerson along with clinical sociologist. Given that patient has clearly stated she will not use TPN, we will not plan on ordering anymore TPN at this time. Port will still be left in place and she can follow-up with her clinical sociologist. - 1 time B12 injection. We will need monthly B12 injections moving forward. - oral vitamin-D 97636 units MWF, oral iron supplementation, vitamin-E 400 units daily - patient will need to recheck vitamin D, vitamin B12, MMA, Homocysteine, zinc and vitamin E levels(around 11/23/23) - underwent ambulatory pulse ox. No need for oxygen on discharge - voiding trial pending - s/p LP on 10/04 to evaluate for MS. Patient can follow-up outpatient with her neurologist two viewresults of her MS labs. - appreciate Neurology input -appreciate nutrition input. Continue TPN - Continue supplemental oxygen. Wean as able. Ambulatory pulse ox prior to discharge. Currently on 2 L nasal cannula - completed course of antibiotics for possible multifocal pneumonia. - continue ferrous sulfate for iron-deficiency - nicotine patch - BMP and CBC reviewed. Currently stable. - vitamin B1 pending - lidocaine patch for right shoulder pain - PT/OT - care management. 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 MS labs we will take 1-2 weeks to resolve. - appointment with Urology on 12/03 - Appointment with GI on 10/16 - appointment with Hematology 10/08 PHARMACOLOGIC VTE PROPHYLAXIS: This patient does not have an active medication from one of the medication groupers. CODE STATUS: No Code EXPECTED DISCHARGE DATE: 10/09/2023 I spent a total of 50 minutes coordinating, documenting, and providing care for this patient excluding time spent in the performance of separately billed services. * Juan Zaragoza DO - 10/08/2023 12:35 PM EDT Images from the original note were not included. [facility] [id number] INTERVAL HISTORY: 58-year-old female admitted on 09/19 for failure to thrive while on TPN. MRI T-spine with no obvious evidence of demyelinating disease involving the thoracic spine. LP on 10/04: CSF RBC 607, CSF glucose 87, CSF protein 29 Subjective: Patient evaluated at bedside. Currently on 2 L nasal cannula. Objective Physical Exam Most Recent Vital Signs: BP: 98 mmHg/60 mmHg (10/08/23 1128) Pulse: 92 (10/08/23 1128) Temp: 36.11 C (10/08/23 1128) Temp Summary: Temp Min: 36 C (96.8 F) Max: 36.4 C (97.5 F) SpO2: 98 % (10/08/23 1128) O2 flow rate: 2 L/MIN (10/08/23 0745) Supplemental O2 Delivery: Nasal Cannula (10/08/23 0745) Constitutional: no acute distress Neck: supple, normal range of motion CV: normal rate and rhythm, no murmur, gallops or rub Chest: normal respiratory effort, (+) decreased breath sounds bilaterally Abdomen: normal: soft, bowel sounds normal, no masses, tenderness or organomegaly Extremities: no clubbing, cyanosis, or edema, otherwise grossly normal, warm, and dry Skin: warm, dry, intact: Neuro: alert, oriented to person, place, and time Urethral Catheter Coude (Active) Number of days: 1 Tunneled Central Cath Double Lumen Left Chest (Active) Number of days: 303 STUDIES: Encounter Orders Labs and other studies reviewed with pertinent findings noted below: Results for orders placed or performed during the hospital encounter of 09/20/23 SARS-COV-2 (COVID-19), NAAT Result Value Ref Range SARS-CoV-2 (COVID-19) Result Negative Negative BASIC METABOLIC PANEL Result Value Ref Range BUN 37 (H) 6 - 20 mg/dL Creatinine 1.2 (H) 0.5 - 1.0 mg/dL Estimated Glomerular Filtration Rate 52 (L) >=60 mL/min Sodium 136 135 - 146 mmol/L Potassium 5.5 (H) 3.5 - 5.1 mmol/L Chloride 111 (H) 98 - 107 mmol/L CO2 13 (L) 22 - 32 mmol/L Anion Gap 12 7 - 15 mmol/L Glucose 99 70 - 120 mg/dL Calcium 8.1 (L) 8.4 - 10.2 mg/dL CALCIUM, IONIZED Result Value Ref Range Calcium, Ionized 1.34 (H) 1.13 - 1.32 mmol/L PHOSPHORUS Result Value Ref Range Phosphorus 5.0 (H) 2.5 - 4.8 mg/dL MAGNESIUM Result Value Ref Range Magnesium 1.9 1.5 - 2.6 mg/dL CBC Result Value Ref Range WBC 5.66 4.00 - 10.80 K/uL RBC 2.88 3.85 - 5.15 M/uL HGB 9.3 (L) 12.0 - 15.3 g/dL HCT 29.8 (L) 36.0 - 45.2 % MCV 103.5 81.5 - 97.5 fL MCH 32.3 27.0 - 34.0 pg MCHC 31.2 32.0 - 36.0 g/dL RDW 14.8 11.5 - 15.5 % PLT 330 140 - 400 K/uL MPV 11.1 6.6 - 11.1 fL nRBCs 0 <=0 /100 WBCs BASIC METABOLIC PANEL Result Value Ref Range BUN 39 (H) 6 - 20 mg/dL Creatinine 1.1 (H) 0.5 - 1.0 mg/dL Estimated Glomerular Filtration Rate 57 (L) >=60 mL/min Sodium 135 135 - 146 mmol/L Potassium 5.1 3.5 - 5.1 mmol/L Chloride 112 (H) 98 - 107 mmol/L CO2 16 (L) 22 - 32 mmol/L Anion Gap 7 7 - 15 mmol/L Glucose 88 70 - 120 mg/dL Calcium 8.2 (L) 8.4 - 10.2 mg/dL PHOSPHORUS Result Value Ref Range Phosphorus 3.2 2.5 - 4.8 mg/dL MAGNESIUM Result Value Ref Range Magnesium 1.9 1.5 - 2.6 mg/dL VITAMIN A (RETINOL) Result Value Ref Range Vitamin A (Retinol) 51 38 - 98 mcg/dL 25-HYDROXY VITAMIN D Result Value Ref Range 25-Hydroxy Vitamin D 9 (L) >19 ng/mL VITAMIN E (TOCOPHEROL) Result Value Ref Range Alpha-Tocopherol 4.6 (L) 5.7 - 19.9 mg/L Tbye-Akula-Zheorkzqrs 2.6 <=4.3 mg/L VITAMIN K Result Value Ref Range Vitamin K >2500 (H) 130 - 1500 pg/mL VITAMIN B1 (THIAMINE), BLOOD, LC/MS/MS Result Value Ref Range Vitamin B1 (Thiamine),B 250 (H) 78 - 185 nmol/L FOLIC ACID Result Value Ref Range Folic Acid 8.2 >4.5 ng/mL VITAMIN B12 Result Value Ref Range Vitamin B12 398 232 - 1,245 pg/mL METHYLMALONIC ACID, SERUM Result Value Ref Range Methylmalonic Acid 2045 (H) 87 - 318 nmol/L COPPER, SERUM OR PLASMA Result Value Ref Range Copper 85 70 - 175 mcg/dL ZINC Result Value Ref Range Zinc 38 (L) 60 - 130 mcg/dL IRON SCREEN, INCLUDING TIBC Result Value Ref Range Iron 39 33 - 151 ug/dL Iron Binding Capacity 258 250 - 425 ug/dL Transferrin Saturation Percent 15 15 - 55 % FERRITIN Result Value Ref Range Ferritin 16 13 - 150 ng/mL BASIC METABOLIC PANEL Result Value Ref Range BUN 45 (H) 6 - 20 mg/dL Creatinine 1.1 (H) 0.5 - 1.0 mg/dL Estimated Glomerular Filtration Rate 58 (L) >=60 mL/min Sodium 134 (L) 135 - 146 mmol/L Potassium 5.7 (H) 3.5 - 5.1 mmol/L Chloride 107 98 - 107 mmol/L CO2 16 (L) 22 - 32 mmol/L Anion Gap 11 7 - 15 mmol/L Glucose 150 (H) 70 - 120 mg/dL Calcium 8.5 8.4 - 10.2 mg/dL PHOSPHORUS Result Value Ref Range Phosphorus 3.9 2.5 - 4.8 mg/dL MAGNESIUM Result Value Ref Range Magnesium 2.0 1.5 - 2.6 mg/dL BASIC METABOLIC PANEL Result Value Ref Range BUN 47 (H) 6 - 20 mg/dL Creatinine 1.0 0.5 - 1.0 mg/dL Estimated Glomerular Filtration Rate 63 >=60 mL/min Sodium 136 135 - 146 mmol/L Potassium 4.4 3.5 - 5.1 mmol/L Chloride 110 (H) 98 - 107 mmol/L CO2 17 (L) 22 - 32 mmol/L Anion Gap 9 7 - 15 mmol/L Glucose 95 70 - 120 mg/dL Calcium 7.8 (L) 8.4 - 10.2 mg/dL PHOSPHORUS Result Value Ref Range Phosphorus 4.2 2.5 - 4.8 mg/dL MAGNESIUM Result Value Ref Range Magnesium 2.0 1.5 - 2.6 mg/dL URINALYSIS, REFLEX TO MICROSCOPIC Result Value Ref Range Color, Urine Yellow Light Yellow, Yellow, Dark Yellow Clarity, Urine Clear Clear Glucose, Urine Negative Negative mg/dL Bilirubin, Urine Negative Negative Ketone, Urine Negative Negative mg/dL Specific Muddy, Urine 1.015 1.003 - 1.030 Blood, Urine Negative Negative pH, Urine 6.0 5.0 - 7.5 Units Protein, Urine Negative Negative mg/dL Urobilinogen, Urine 0.2 0.2, 1.0 mg/dL Nitrite, Urine Negative Negative Esterase, Urine Negative Negative Comment, Urine BASIC METABOLIC PANEL Result Value Ref Range BUN 66 (H) 6 - 20 mg/dL Creatinine 1.2 (H) 0.5 - 1.0 mg/dL Estimated Glomerular Filtration Rate 50 (L) >=60 mL/min Sodium 139 135 - 146 mmol/L Potassium 4.5 3.5 - 5.1 mmol/L Chloride 110 (H) 98 - 107 mmol/L CO2 16 (L) 22 - 32 mmol/L Anion Gap 13 7 - 15 mmol/L Glucose 116 70 - 120 mg/dL Calcium 8.6 8.4 - 10.2 mg/dL PHOSPHORUS Result Value Ref Range Phosphorus 4.6 2.5 - 4.8 mg/dL MAGNESIUM Result Value Ref Range Magnesium 2.3 1.5 - 2.6 mg/dL BASIC METABOLIC PANEL Result Value Ref Range BUN 82 (H) 6 - 20 mg/dL Creatinine 1.5 (H) 0.5 - 1.0 mg/dL Estimated Glomerular Filtration Rate 39 (L) >=60 mL/min Sodium 137 135 - 146 mmol/L Potassium 4.5 3.5 - 5.1 mmol/L Chloride 107 98 - 107 mmol/L CO2 15 (L) 22 - 32 mmol/L Anion Gap 15 7 - 15 mmol/L Glucose 96 70 - 120 mg/dL Calcium 8.3 (L) 8.4 - 10.2 mg/dL PHOSPHORUS Result Value Ref Range Phosphorus 5.4 (H) 2.5 - 4.8 mg/dL MAGNESIUM Result Value Ref Range Magnesium 2.5 1.5 - 2.6 mg/dL BASIC METABOLIC PANEL Result Value Ref Range BUN 83 (H) 6 - 20 mg/dL Creatinine 1.6 (H) 0.5 - 1.0 mg/dL Estimated Glomerular Filtration Rate 38 (L) >=60 mL/min Sodium 134 (L) 135 - 146 mmol/L Potassium 4.5 3.5 - 5.1 mmol/L Chloride 106 98 - 107 mmol/L CO2 15 (L) 22 - 32 mmol/L Anion Gap 13 7 - 15 mmol/L Glucose 118 70 - 120 mg/dL Calcium 8.5 8.4 - 10.2 mg/dL PHOSPHORUS Result Value Ref Range Phosphorus 4.3 2.5 - 4.8 mg/dL MAGNESIUM Result Value Ref Range Magnesium 2.5 1.5 - 2.6 mg/dL HEPATIC FUNCTION PANEL Result Value Ref Range Albumin 3.0 (L) 3.8 - 5.0 g/dL AST 22 10 - 35 U/L Alkaline Phosphatase 112 35 - 130 U/L ALT 30 10 - 35 U/L Bilirubin, Total <0.2 <=1.2 mg/dL Bilirubin, Direct <0.2 0.0 - 0.3 mg/dL Protein 5.8 (L) 6.0 - 8.3 g/dL TRIGLYCERIDES Result Value Ref Range Triglycerides 101 <=174 mg/dL CALCIUM, IONIZED Result Value Ref Range Calcium, Ionized 1.27 1.13 - 1.32 mmol/L BASIC METABOLIC PANEL Result Value Ref Range BUN 83 (H) 6 - 20 mg/dL Creatinine 1.6 (H) 0.5 - 1.0 mg/dL Estimated Glomerular Filtration Rate 37 (L) >=60 mL/min Sodium 136 135 - 146 mmol/L Potassium 4.7 3.5 - 5.1 mmol/L Chloride 107 98 - 107 mmol/L CO2 16 (L) 22 - 32 mmol/L Anion Gap 13 7 - 15 mmol/L Glucose 118 70 - 120 mg/dL Calcium 8.4 8.4 - 10.2 mg/dL PHOSPHORUS Result Value Ref Range Phosphorus 4.3 2.5 - 4.8 mg/dL MAGNESIUM Result Value Ref Range Magnesium 2.6 1.5 - 2.6 mg/dL BASIC METABOLIC PANEL Result Value Ref Range BUN 91 (H) 6 - 20 mg/dL Creatinine 1.9 (H) 0.5 - 1.0 mg/dL Estimated Glomerular Filtration Rate 29 (L) >=60 mL/min Sodium 136 135 - 146 mmol/L Potassium 4.8 3.5 - 5.1 mmol/L Chloride 106 98 - 107 mmol/L CO2 15 (L) 22 - 32 mmol/L Anion Gap 15 7 - 15 mmol/L Glucose 139 (H) 70 - 120 mg/dL Calcium 8.1 (L) 8.4 - 10.2 mg/dL PHOSPHORUS Result Value Ref Range Phosphorus 3.9 2.5 - 4.8 mg/dL MAGNESIUM Result Value Ref Range Magnesium 2.5 1.5 - 2.6 mg/dL BASIC METABOLIC PANEL Result Value Ref Range BUN 102 (H) 6 - 20 mg/dL Creatinine 2.2 (H) 0.5 - 1.0 mg/dL Estimated Glomerular Filtration Rate 25 (L) >=60 mL/min Sodium 135 135 - 146 mmol/L Potassium 4.5 3.5 - 5.1 mmol/L Chloride 106 98 - 107 mmol/L CO2 13 (L) 22 - 32 mmol/L Anion Gap 16 (H) 7 - 15 mmol/L Glucose 151 (H) 70 - 120 mg/dL Calcium 8.2 (L) 8.4 - 10.2 mg/dL PHOSPHORUS Result Value Ref Range Phosphorus 4.3 2.5 - 4.8 mg/dL MAGNESIUM Result Value Ref Range Magnesium 2.6 1.5 - 2.6 mg/dL TROPONIN T, HIGH SENSITIVITY Result Value Ref Range Troponin T, High Sensitivity 41 (H) <=14 ng/L PHOSPHORUS Result Value Ref Range Phosphorus 3.6 2.5 - 4.8 mg/dL MAGNESIUM Result Value Ref Range Magnesium 2.4 1.5 - 2.6 mg/dL RESPIRATORY PATHOGEN PANEL, PCR Result Value Ref Range Adenovirus by PCR Negative Negative Coronavirus 229E by PCR Negative Negative Coronavirus HKU1 by PCR Negative Negative Coronavirus NL63 by PCR Negative Negative Coronavirus OC43 by PCR Negative Negative Coronavirus SARS-CoV-2 by PCR Negative Negative Human Metapneumovirus by PCR Negative Negative Rhinovirus/Enterovirus by PCR Negative Negative Influenza A Virus by PCR Negative Negative Influenza B Virus by PCR Negative Negative Parainfluenza Virus 1 by PCR Negative Negative Parainfluenza Virus 2 by PCR Negative Negative Parainfluenza Virus 3 by PCR Negative Negative Parainfluenza Virus 4 by PCR Negative Negative Respiratory Syncytial Virus by PCR Negative Negative Bordetella pertussis by PCR Negative Negative Chlamydia pneumoniae by PCR Negative Negative Mycoplasma pneumoniae by PCR Negative Negative Bordetella parapertussis by PCR Negative Negative CULTURE, BLOOD Result Value Ref Range Blood Culture Growth No growth CULTURE, BLOOD Result Value Ref Range Blood Culture Growth No growth BASIC METABOLIC PANEL Result Value Ref Range BUN 92 (H) 6 - 20 mg/dL Creatinine 1.8 (H) 0.5 - 1.0 mg/dL Estimated Glomerular Filtration Rate 31 (L) >=60 mL/min Sodium 136 135 - 146 mmol/L Potassium 3.7 3.5 - 5.1 mmol/L Chloride 105 98 - 107 mmol/L CO2 15 (L) 22 - 32 mmol/L Anion Gap 16 (H) 7 - 15 mmol/L Glucose 171 (H) 70 - 120 mg/dL Calcium 8.3 (L) 8.4 - 10.2 mg/dL CBC Result Value Ref Range WBC 17.65 (H) 4.00 - 10.80 K/uL RBC 2.33 3.85 - 5.15 M/uL HGB 7.6 (L) 12.0 - 15.3 g/dL HCT 23.5 (L) 36.0 - 45.2 % MCV 100.9 81.5 - 97.5 fL MCH 32.6 27.0 - 34.0 pg MCHC 32.3 32.0 - 36.0 g/dL RDW 14.0 11.5 - 15.5 % PLT 297 140 - 400 K/uL MPV 11.8 6.6 - 11.1 fL nRBCs 0 <=0 /100 WBCs BLOOD GAS, ARTERIAL Result Value Ref Range Temperature 37.0 C pH, Arterial 7.343 (L) 7.350 - 7.450 units pCO2, Arterial 32.2 (L) 35.0 - 45.0 mmHg pO2, Arterial 80.2 75.0 - 100.0 mmHg Base Excess, Arterial -7.5 (L) -2.0 - 2.0 mmol/L HGB 7.1 (L) 12.0 - 15.3 g/dL Oxyhemoglobin, Arterial 90.0 (L) 94.0 - 99.0 % total Hgb Carboxyhemoglobin, Whole Blood 0.7 <=1.5 % total Hgb Methemoglobin, Whole Blood 2.7 (H) <=1.5 % total Hgb Reduced Hemoglobin, Arterial 6.6 (H) 0.0 - 5.0 % total Hgb O2 Content, Arterial 9.2 (L) 15.0 - 24.0 %vol FiO2 Not Provided % O2 Flow, Arterial 4 L/min Bicarbonate, Whole Blood 17.0 (L) 23.0 - 31.0 mmol/L LACTATE Result Value Ref Range Lactate 0.9 0.4 - 2.0 mmol/L CBC Result Value Ref Range WBC 17.02 (H) 4.00 - 10.80 K/uL RBC 2.27 3.85 - 5.15 M/uL HGB 7.2 (L) 12.0 - 15.3 g/dL HCT 23.0 (L) 36.0 - 45.2 % MCV 101.3 81.5 - 97.5 fL MCH 31.7 27.0 - 34.0 pg MCHC 31.3 32.0 - 36.0 g/dL RDW 14.2 11.5 - 15.5 % PLT 289 140 - 400 K/uL MPV 11.8 6.6 - 11.1 fL nRBCs 0 <=0 /100 WBCs TYPE AND SCREEN Result Value Ref Range ABO A Rh Positive Red Blood Cell Antibody Screen Negative Specimen Expiration Date 10/04/2023 23:59 PROCALCITONIN Result Value Ref Range Procalcitonin 0.40 (H) <0.10 ng/mL CBC Result Value Ref Range WBC 17.00 (H) 4.00 - 10.80 K/uL RBC 2.79 3.85 - 5.15 M/uL HGB 8.4 (L) 12.0 - 15.3 g/dL HCT 26.4 (L) 36.0 - 45.2 % MCV 94.6 81.5 - 97.5 fL MCH 30.1 27.0 - 34.0 pg MCHC 31.8 32.0 - 36.0 g/dL RDW 17.9 11.5 - 15.5 % PLT 274 140 - 400 K/uL MPV 11.7 6.6 - 11.1 fL nRBCs 0 <=0 /100 WBCs *Note: Due to a large number of results and/or encounters for the requested time period, some results have not been displayed. A complete set of results can be found in Results Review. XR SHOULDER, 2 OR MORE VIEWS Final Result PROCEDURE INFORMATION: Exam: XR Right Shoulder Exam date and time: 10/06/2023 1:21 PM Age: 58 years old Clinical indication: Other: Right shoulder pain, no known injury TECHNIQUE: Imaging protocol: Radiologic exam of the right shoulder. Views: 2 or more views. COMPARISON: [facility] DUPLEX VENOUS LE UNILAT 04/10/2023 12:33 PM FINDINGS: Bones/joints: Diffuse osteopenia. No fracture or dislocation. Unremarkable glenohumeral joint. Unremarkable AC joint. Lungs: Right lung demonstrates diffuse hazy opacities without significant change compared to the 10/02/2023 CXR. Soft tissues: Normal. IMPRESSION IMPRESSION: 1. Unremarkable right shoulder. 2. Right lung demonstrates diffuse hazy opacities without significant change compared to the 10/02/2023 CXR. THIS DOCUMENT HAS BEEN ELECTRONICALLY SIGNED BY FELICIANO TOVAR MD IR LUMBAR PUNCTURE Final Result PROCEDURE: Diagnostic lumbar puncture . INDICATION: Workup for multiple sclerosis ATTENDING (OPERATING PHYSICIAN): Romana CONSENT: After a detailed discussion of the procedure, risks, benefits and alternative treatment options, informed consent was obtained. TIME OUT: A time out procedure was performed. The patient's identification was verified. Informed consent with agreement of procedure, site and position was obtained. All necessary equipment was available prior to procedure. CONTRAST: No contrast was administered. COMPLICATIONS: None. ANESTHESIA: Local lidocaine. MEDICATIONS: See MAR PROCEDURE DESCRIPTION: The lumbar area was prepped and draped in the usual sterile fashion. Using intermittent fluoroscopic guidance, attempts to access the L4-5 disc space failed. Using intermittent fluoroscopic guidance, the thecal sac was penetrated at the L5-S1 level with a 22 gauge 6 inch spinal needle with confirmation by immediate return of clear and colorless cerebrospinal fluid (CSF). Opening pressure measured mm CSF. CSF was collected in four tubes as labeled in consecutive order and sent to the lab for analysis. The needle was removed and the site was dressed. The procedure was performed by Dr. Avendano FINDINGS: Single spot image demonstrates the spinal needle at the L5-S1 level. Clear and colorless CSF was returned from the needle. IMPRESSION IMPRESSION: Successful fluoroscopic-guided diagnostic lumbar puncture PLAN: Follow-up of cerebrospinal fluid analysis and further management per primary team XR CHEST 1 VIEW Final Result PROCEDURE INFORMATION: Exam: XR Chest Exam date and time: 10/02/2023 5:42 PM Age: 58 years old Clinical indication: Other: SOB; Additional info: Lethargy, abnormal breathing pattern TECHNIQUE: Imaging protocol: Radiologic exam of the chest. Views: 1 view. COMPARISON: DX XR CHEST 1 VIEW 10/01/2023 11:06 PM FINDINGS: Tubes, catheters and devices: Left MediPort catheter is in stable position with the tip in the cavoatrial junction. Dumbbell-shaped device which likely represents a cystogastrostomy is seen in the left upper quadrant. Lungs: Redemonstration of stable diffuse ground-glass and interstitial opacities bilaterally greater on the right. Pleural spaces: Unremarkable. No pleural effusion. No pneumothorax. Heart/Mediastinum: Stable cardiomediastinal silhouette. Bones/joints: Degenerative changes with S-shaped scoliosis of the thoracic spine. Organs: Surgical clips in the right upper quadrant from prior cholecystectomy. IMPRESSION IMPRESSION: No change in the mixed airspace opacities bilaterally secondary to edema and/or pneumonia. THIS DOCUMENT HAS BEEN ELECTRONICALLY SIGNED BY DARIN VILLELA MD MRI T SPINE W WO CONTRAST Final Result EXAM: MRI T SPINE W WO CONTRAST HISTORY: Acute urinary retention, unsteady gait, concern for potential demyelinating disease TECHNIQUE: MRI of the thoracic spine was performed with and without intravenous Gadavist contrast COMPARISON: CT abdomen/pelvis 07/31/2023, MRI cervical spine 09/02/2023 FINDINGS: ALIGNMENT: Exaggeration of the midthoracic kyphosis. Severe dextroscoliosis centered at T7-T8 and levoscoliosis centered T12-L1. Stepwise right lateral listhesis of T10 on T11 and T11 on T12. BONES: Chronic anterior wedging of the T12 and L1 vertebral bodies with less than 50% total height loss. Mild chronic left lateral wedging of the T7 and T8 vertebral bodies and chronic right lateral wedging of the T11-L1 vertebral bodies. No aggressive appearing enhancing osseous lesions. DISCS: Multilevel disc desiccation and associated height loss. Asymmetric, chronic splaying of the right T6-T9 and left T10-L1 disc spaces. Scattered Schmorl's nodes throughout the thoracic spine. Modic 2 changes marginating the T12-L1 disc space. No abnormal intradiscal enhancement. SPINAL CORD: Extremely limited evaluation of the thoracic spinal cord due to extensive motion degradation. No obvious areas of abnormal enhancement, enhancement, or volume loss involving the thoracic spinal cord. Left lateral displacement of the upper/midthoracic cord related to scoliotic curvature of the spine. Grossly normal of the conus medullaris which terminates at around the level of T12-L1. No large epidural fluid collections. DISC LEVELS: Limited characterization of the individual disc levels due to motion degradation. Multilevel thoracic spondylosis with posterior disc bulges, facet arthrosis, and ligamentous thickening. No severe spinal canal stenosis appreciated. PARASPINAL SOFT TISSUES: Diffuse atrophy of the dorsal paraspinal musculature. Nondiagnostic evaluation of the upper abdominal contents. VISUALIZED INTRATHORACIC STRUCTURES: No lobar consolidations. IMPRESSION IMPRESSION: No obvious evidence of demyelinating disease involving the thoracic spinal cord, although evaluation is severely limited by motion degradation. If there is persistent concern for potential demyelinating disease, a repeat examination under sedation should be considered. Midthoracic dextroscoliosis and thoracolumbar levoscoliosis as described, associated with chronic multilevel vertebral body wedging and asymmetric disc space widening. Limited characterization of spondylitic changes at the individual disc levels. No evidence for severe thoracic spinal canal stenosis. XR CHEST 1 VIEW Final Result PROCEDURE INFORMATION: Exam: XR Chest Exam date and time: 10/01/2023 11:06 PM Age: 58 years old Clinical indication: Other: Worsening dyspnea TECHNIQUE: Imaging protocol: Radiologic exam of the chest. Views: 1 view. COMPARISON: DX XR CHEST 1 VIEW 10/01/2023 4:45 AM FINDINGS: Lungs: Persistent moderate vascular congestion/bilateral diffuse airspace disease. Left [id number] catheter noted. Pleural spaces: No pleural effusion. No pneumothorax. Heart/Mediastinum: No cardiomegaly. Bones/joints: Degenerative changes with scoliosis. IMPRESSION IMPRESSION: Persistent moderate vascular congestion/bilateral diffuse airspace disease. THIS DOCUMENT HAS BEEN ELECTRONICALLY SIGNED BY HANDY HUIZAR MD XR CHEST 1 VIEW Final Result PROCEDURE INFORMATION: Exam: XR Chest Exam date and time: 10/01/2023 4:45 AM Age: 58 years old Clinical indication: Other: Hypoxia; Additional info: Hypoxia. Please have patient sitting upright for study and not lying flat. TECHNIQUE: Imaging protocol: Radiologic exam of the chest. Views: 1 view. COMPARISON: DX XR CHEST 1 VIEW 10/01/2023 12:02 AM FINDINGS: Tubes, catheters and devices: A catheter which may represent an abandoned catheter from a prior left anterior chest wall port is again seen, with tip projecting over the superior vena cava. Lungs: Stable moderate bilateral patchy ground-glass and interstitial opacities in the mid to upper lungs. Pleural spaces: No pneumothorax. Trace left pleural effusion. Heart/Mediastinum: Mild cardiomegaly. Bones/joints: Moderate rotatory scoliosis. No acute or suspicious osseous abnormalities. Gastrointestinal tract: Partially imaged prominent air-filled bowel loops. Other findings: Cholecystectomy clips. A dumbbell-shaped device which may represent a cystogastrostomy device projects over the epigastric region. IMPRESSION IMPRESSION: 1. Stable moderate bilateral patchy ground-glass and interstitial opacities in the mid to upper lungs. This may represent multifocal pneumonia in the appropriate clinical setting. 2. Trace left pleural effusion. THIS DOCUMENT HAS BEEN ELECTRONICALLY SIGNED BY VERNA GIBSON MD XR CHEST 1 VIEW Final Result PROCEDURE INFORMATION: Exam: XR Chest Exam date and time: 10/01/2023 12:02 AM Age: 58 years old Clinical indication: Other: Lower back pain that shoots up her back, o2 levels dropped; Additional info: Spo2 drop and new back pain TECHNIQUE: Imaging protocol: Radiologic exam of the chest. Views: 1 view. COMPARISON: DX XR CHEST 1 VIEW 09/20/2023 2:28 PM FINDINGS: Tubes, catheters and devices: There appears to be an abandoned left port catheter with tip extending to the cavoatrial junction. Lungs: There is multifocal parenchymal consolidation which is significantly increased from the comparison study and could reflect multifocal pneumonia, ARDS, or edema. Pleural spaces: No large effusion or pneumothorax. Heart/Mediastinum: No evidence of mediastinal widening or cardiac silhouette enlargement; the mediastinum and heart appear within normal limits for contour and size. Bones/joints: No evidence of acute osseous abnormalities within the visualized portions of the thoracic spine and ribs. Osseous structures appear appropriate for patient age. Gastrointestinal tract: There is mild gaseous distention of partially visualized bowel loops. IMPRESSION IMPRESSION: There is multifocal parenchymal consolidation which is significantly increased from the comparison study and could reflect multifocal pneumonia, ARDS, or edema. THIS DOCUMENT HAS BEEN ELECTRONICALLY SIGNED BY EFRAIN GILMAN MD US RENAL Final Result PROCEDURE INFORMATION: Exam: US Retroperitoneal; Complete; Kidneys and Bladder Exam date and time: 09/29/2023 3:29 PM Age: 58 years old Clinical indication: Abnormal findings; Abnormal lab test; Abnormal kidney function lab tests; Prior surgery; Surgery date: 6+ months; Surgery type: RT nephrectomy; Additional info: Robinson. HX nephrectomy TECHNIQUE: Imaging protocol: Real-time ultrasound of the retroperitoneum with image documentation. Complete exam focused on the kidneys and bladder. COMPARISON: US PELVIS TRANS-ABDOMINAL 09/27/2023 11:15 AM FINDINGS: Right kidney: Surgically absent. Left kidney: 10.9 x 4.1 x 4.9 cm. 4 mm calcification in the midportion with moderate hydronephrosis. Urinary bladder: Distended bladder with increased postvoid residue. Bladder diverticulum. IMPRESSION IMPRESSION: Left kidney demonstrates 4 mm calcification in the midportion with moderate hydronephrosis. THIS DOCUMENT HAS BEEN ELECTRONICALLY SIGNED BY RUI MARTINEZ MD US PELVIS TRANS-ABDOMINAL Final Result PROCEDURE INFORMATION: Exam: US Nonobstetric Pelvis; Complete Exam date and time: 09/27/2023 11:15 AM Age: 58 years old Clinical indication: Abnormal findings; Abnormal imaging test; Additional info: Abnormal abd US TECHNIQUE: Imaging protocol: Transabdominal pelvic nonobstetric ultrasound. Complete exam. Real time ultrasound with image documentation. COMPARISON: US PELVIS TRANS-VAGINAL NON-OB 09/09/2020 8:48 AM FINDINGS: Uterus: Uterus is anteverted and measures 4.9 x 1.7 x 3.5 cm. Endometrial stripe is normal in thickness measuring 3.7 mm. Right ovary/adnexa: Not visualized. Left ovary/adnexa: Not visualized. Intraperitoneal space: No intraperitoneal fluid. Urinary bladder: Normal. IMPRESSION IMPRESSION: 1. Unremarkable appearance of the uterus and endometrium. 2. Nonvisualization of the ovaries. No adnexal masses. THIS DOCUMENT HAS BEEN ELECTRONICALLY SIGNED BY DARIN VILLELA MD XR ABDOMEN 1 VIEW Final Result PROCEDURE INFORMATION: Exam: XR Abdomen Exam date and time: 09/25/2023 9:00 AM Age: 58 years old Clinical indication: Other: Abd pain and tenderness pelvic area, bloating and constipation; Additional info: Abd pain and bloating TECHNIQUE: Imaging protocol: Radiologic exam of the abdomen. Views: Frontal supine view of the abdomen. 1 View. COMPARISON: CT ABDOMEN PELVIS WO(Adult) 07/31/2023 12:13 PM FINDINGS: Gastrointestinal tract: The stool and gas pattern is nonspecific. The stool and gas pattern is nonspecific. Intraperitoneal space: There is a stent identified in the left upper quadrant Organs: Surgical clips are seen from prior cholecystectomy. There is increased density over the pelvis. This may be due to the uterus. Gynecological follow-up is advised for assessment the endometrial stripe Vasculature: Vascular calcification is seen Bones/joints: There is a rotary scoliosis convex to the left within the spine Soft tissues: There surgical clips in the right inguinal region IMPRESSION IMPRESSION: Gynecological follow-up advised THIS DOCUMENT HAS BEEN ELECTRONICALLY SIGNED BY CARLOTTA ALEXANDER MD XR CHEST 1 VIEW Final Result PROCEDURE INFORMATION: Exam: XR Chest Exam date and time: 09/20/2023 2:28 PM Age: 58 years old Clinical indication: Other: General weakness; Additional info: Failure to thrive TECHNIQUE: Imaging protocol: Radiologic exam of the chest. Views: 1 view. COMPARISON: 1. DX XR CHEST 1 VIEW 12/11/2022 10:01 AM 2. Two-view chest x-ray 11/08/2022 FINDINGS: Tubes, catheters and devices: Left-sided central line, tip in the region of the cavoatrial junction, unchanged. Lungs: Persistent mild bronchial wall thickening. No developing focal infiltrate. Pleural spaces: No pleural effusion or pneumothorax. Heart/Mediastinum: Stable heart size. Bones/joints: Severe scoliosis thoracolumbar spine. Intraperitoneal space: Right upper quadrant clips. IMPRESSION IMPRESSION: 1. No acute cardiopulmonary disease. 2. Possible mild bronchitis. THIS DOCUMENT HAS BEEN ELECTRONICALLY SIGNED BY TERESA PATEL MD Assessment and Plan IMPRESSION : Principal Problem: Failure to thrive in adult Active Problems: Anemia Intestinal postoperative nonabsorption Chronic pain syndrome Hereditary and idiopathic peripheral neuropathy Cachexia (HCC) On total parenteral nutrition (TPN) MDD (major depressive disorder), recurrent episode, moderate (HCC) Bipolar disorder (HCC) Tobacco abuse Fall at home Generalized weakness Adjustment disorder ROBINSON (acute kidney injury) (HCC) Acute urinary retention Hypoxia Multifocal pneumonia Acute hypoxic respiratory failure (HCC) Mixed incontinence Retention of urine Acute pain of right shoulder Resolved Problems: * No resolved hospital problems. * I have examined the patient and consistent with the dietitian's findings found malnutrition presentof Severe (09/21/23 1019) degree. This is consistent with such due to Fat loss;Muscle loss;Inadequate energy intake;Weight loss (09/21/23 1019). I have also reviewed and agree with the dietitian's plan of care which include Nutrition support monitoring;Oral nutritional supplement ordered/adjusted (10/05/23 1412). DIFFERENTIAL AND PLAN: - long discussion had with patient this morning. Patient is not adamant about not being on TPN. States she has been on TPN before and does not feel has not made any difference. Discussion was had with patient that they had tried decreasing frequency of TPN from every day to Wednesdays and Monday and she still was not able to get enough nutrition. Patient states she feels like TPN is preventing her from having a normal life as well as eating normally because she always feels full. Patientstates she will not take the TPN when she goes home. She also wanted to know if for port could be taken out. Advised patient that if she does not want to do TPN then we should at least consider keeping the port in in case she is unable to get sufficient nutrition via the oral route. She would like for us to reach out to her clinical sociologist Dr Vic Wilkerson. - previously tried voiding tried few days ago but patient was still retaining requiring placement of another Yin catheter. Patient states she does not want to go home with a Yin catheter so will attempt a voiding trial tomorrow. - s/p LP on 10/04 to evaluate for MS. Patient can follow-up outpatient with her neurologist two viewresults of her MS labs. - appreciate Neurology input -appreciate nutrition input. Continue TPN - Continue supplemental oxygen. Wean as able. Ambulatory pulse ox prior to discharge. Currently on 2 L nasal cannula - completed course of antibiotics for possible multifocal pneumonia. - continue ferrous sulfate for iron-deficiency - nicotine patch - BMP and CBC reviewed. Currently stable. - vitamin B1 pending - lidocaine patch for right shoulder pain - PT/OT - care management. Plan is for patient to return home upon discharge - continue rest of [employer]CHNICIAN medications - patient has appointment with Neurology on 10/22 - appointment with Urology on 12/03 - Appointment with GI on 10/16 - appointment with Hematology 10/08 PHARMACOLOGIC VTE PROPHYLAXIS: This patient does not have an active medication from one of the medication groupers. CODE STATUS: No Code EXPECTED DISCHARGE DATE: 10/09/2023 I spent a total of 50 minutes coordinating, documenting, and providing care for this patient excluding time spent in the performance of separately billed services. * [facility] - 10/08/2023 9:56 AM EDT Images from the original note were not included. PHARMACY PARENTERAL NUTRITION CONSULT [facility]-[address] [id number] Name: Chandrika Hogue Date: 10/08/2023 at 9:56 AM PN per Pharmacy TBW: 44.3 kg Height: 150 cm BMI: 19.73 kg/m2 Age: 58 years Diabetic?: no Central or peripheral administration?: central Current PN parameters: Total Kcal: 1370 (100 [...] 2 Dextrose mg/kg/min: 1.51 HOME TPN "RECIPE" -Resuming home TPN. -Using trace minerals; currently have no selenium, copper, zinc, or manganese. -Sodium acetate is on backorder; utilizing sodium chloride to provide some Na without administeringtoo much chloride. -Administering TPN daily -Will taper on to administering over 12 hours if patient tolerates.16 hours today, and then 12 hours. 09/21 -Decreased K -Increased phos and dextrose -will do 24 administration today due to increase in macros and will taper after that if patient is stable. 09/22 - D/w Dr. Boswell, d/t labs not being drawn will re-order same TPN regimen as yesterday over 24 hours (decreased potassium acetate from 40 mEq to 20 mEq) - Follow up on labs tomorrow - Update: K at 5.7, d/w nutrition and agree to take all K containing products out for today 09/23 - D/w Dr. Wilkerson regarding TPN, his is okay with adding back 40 mEq of potassium acetate, as well asincreasing protein to 65 g - Added thiamine 100 mg to bag (daily) per Dr. Wilkerson - Start to run over 16 hours tonight 09/24 -decreasing K, administer over 12 hours 09/25 -Remove phos, increase volume to 1500 ml, decrease amino acids to 60 grams, add 150 mcg octreotide 09/26 -sodium acetate is on backorder with no release date, adding and additional 5 mg of zinc, will notify attending that patient may require additional fluid boluses. 09/27 -continue same TPN. 09/28 -Decrease K, start vitamin E 400 PO daily 10/01 -Increase K acetate, give over 24 hours. 10/02 -decreasing volume to 1050 ml due to edema 10/03 -add 5 mmol kphos, 20 hour infusion time; give 2 grams IV magnesium piggyback 10/04 -Increase kphos to 10 mmol, 18 infusion time, add 5 mg of zinc; thiamine level with AM labs on 10/05 10/05 -Continue same TPN, run over 16 hrs 10/07 -Continue TPN with only 20 meq K acetate Contact the Pharmacy at extension [phone] if there are any questions. * Juan Zaragoza DO - 10/07/2023 9:55 AM EDT Images from the original note were not included. [facility] [id number] INTERVAL HISTORY: 58-year-old female admitted on 09/19 for failure to thrive while on TPN. MRI T-spine with no obvious evidence of demyelinating disease involving the thoracic spine. LP on 10/04: CSF RBC 607, CSF glucose 87, CSF protein 29 Subjective: Patient evaluated at bedside. Currently on 4 L nasal cannula. Right shoulder pain improved. Objective Physical Exam Most Recent Vital Signs: BP: 103 mmHg/62 mmHg (10/07/23 07) Pulse: 84 (10/07/23 07) Temp: 36.11 C (10/07/23 07) Temp Summary: Temp Min: 35.6 C (96.1 F) Max: 36.3 C (97.3 F) SpO2: 97 % (10/07/23 0755) O2 flow rate: 3 L/MIN (10/07/23 0755) Supplemental O2 Delivery: Nasal Cannula (10/07/23754) Constitutional: no acute distress Neck: supple, normal range of motion CV: normal rate and rhythm, no murmur, gallops or rub Chest: normal respiratory effort, (+) decreased breath sounds bilaterally Abdomen: normal: soft, bowel sounds normal, no masses, tenderness or organomegaly Extremities: no clubbing, cyanosis, or edema, otherwise grossly normal, warm, and dry Skin: warm, dry, intact: Neuro: alert, oriented to person, place, and time Tunneled Central Cath Double Lumen Left Chest (Active) Number of days: 302 STUDIES: Encounter Orders Labs and other studies reviewed with pertinent findings noted below: Results for orders placed or performed during the hospital encounter of 09/20/23 SARS-COV-2 (COVID-19), NAAT Result Value Ref Range SARS-CoV-2 (COVID-19) Result Negative Negative BASIC METABOLIC PANEL Result Value Ref Range BUN 37 (H) 6 - 20 mg/dL Creatinine 1.2 (H) 0.5 - 1.0 mg/dL Estimated Glomerular Filtration Rate 52 (L) >=60 mL/min Sodium 136 135 - 146 mmol/L Potassium 5.5 (H) 3.5 - 5.1 mmol/L Chloride 111 (H) 98 - 107 mmol/L CO2 13 (L) 22 - 32 mmol/L Anion Gap 12 7 - 15 mmol/L Glucose 99 70 - 120 mg/dL Calcium 8.1 (L) 8.4 - 10.2 mg/dL CALCIUM, IONIZED Result Value Ref Range Calcium, Ionized 1.34 (H) 1.13 - 1.32 mmol/L PHOSPHORUS Result Value Ref Range Phosphorus 5.0 (H) 2.5 - 4.8 mg/dL MAGNESIUM Result Value Ref Range Magnesium 1.9 1.5 - 2.6 mg/dL CBC Result Value Ref Range WBC 5.66 4.00 - 10.80 K/uL RBC 2.88 3.85 - 5.15 M/uL HGB 9.3 (L) 12.0 - 15.3 g/dL HCT 29.8 (L) 36.0 - 45.2 % MCV 103.5 81.5 - 97.5 fL MCH 32.3 27.0 - 34.0 pg MCHC 31.2 32.0 - 36.0 g/dL RDW 14.8 11.5 - 15.5 % PLT 330 140 - 400 K/uL MPV 11.1 6.6 - 11.1 fL nRBCs 0 <=0 /100 WBCs BASIC METABOLIC PANEL Result Value Ref Range BUN 39 (H) 6 - 20 mg/dL Creatinine 1.1 (H) 0.5 - 1.0 mg/dL Estimated Glomerular Filtration Rate 57 (L) >=60 mL/min Sodium 135 135 - 146 mmol/L Potassium 5.1 3.5 - 5.1 mmol/L Chloride 112 (H) 98 - 107 mmol/L CO2 16 (L) 22 - 32 mmol/L Anion Gap 7 7 - 15 mmol/L Glucose 88 70 - 120 mg/dL Calcium 8.2 (L) 8.4 - 10.2 mg/dL PHOSPHORUS Result Value Ref Range Phosphorus 3.2 2.5 - 4.8 mg/dL MAGNESIUM Result Value Ref Range Magnesium 1.9 1.5 - 2.6 mg/dL VITAMIN A (RETINOL) Result Value Ref Range Vitamin A (Retinol) 51 38 - 98 mcg/dL 25-HYDROXY VITAMIN D Result Value Ref Range 25-Hydroxy Vitamin D 9 (L) >19 ng/mL VITAMIN E (TOCOPHEROL) Result Value Ref Range Alpha-Tocopherol 4.6 (L) 5.7 - 19.9 mg/L Ghaq-[id number]-Sedwhyexek 2.6 <=4.3 mg/L VITAMIN K Result Value Ref Range Vitamin K >2500 (H) 130 - 1500 pg/mL VITAMIN B1 (THIAMINE), BLOOD, LC/MS/MS Result Value Ref Range Vitamin B1 (Thiamine),B 250 (H) 78 - 185 nmol/L FOLIC ACID Result Value Ref Range Folic Acid 8.2 >4.5 ng/mL VITAMIN B12 Result Value Ref Range Vitamin B12 398 232 - 1,245 pg/mL METHYLMALONIC ACID, SERUM Result Value Ref Range Methylmalonic Acid 2045 (H) 87 - 318 nmol/L COPPER, SERUM OR PLASMA Result Value Ref Range Copper 85 70 - 175 mcg/dL ZINC Result Value Ref Range Zinc 38 (L) 60 - 130 mcg/dL IRON SCREEN, INCLUDING TIBC Result Value Ref Range Iron 39 33 - 151 ug/dL Iron Binding Capacity 258 250 - 425 ug/dL Transferrin Saturation Percent 15 15 - 55 % FERRITIN Result Value Ref Range Ferritin 16 13 - 150 ng/mL BASIC METABOLIC PANEL Result Value Ref Range BUN 45 (H) 6 - 20 mg/dL Creatinine 1.1 (H) 0.5 - 1.0 mg/dL Estimated Glomerular Filtration Rate 58 (L) >=60 mL/min Sodium 134 (L) 135 - 146 mmol/L Potassium 5.7 (H) 3.5 - 5.1 mmol/L Chloride 107 98 - 107 mmol/L CO2 16 (L) 22 - 32 mmol/L Anion Gap 11 7 - 15 mmol/L Glucose 150 (H) 70 - 120 mg/dL Calcium 8.5 8.4 - 10.2 mg/dL PHOSPHORUS Result Value Ref Range Phosphorus 3.9 2.5 - 4.8 mg/dL MAGNESIUM Result Value Ref Range Magnesium 2.0 1.5 - 2.6 mg/dL BASIC METABOLIC PANEL Result Value Ref Range BUN 47 (H) 6 - 20 mg/dL Creatinine 1.0 0.5 - 1.0 mg/dL Estimated Glomerular Filtration Rate 63 >=60 mL/min Sodium 136 135 - 146 mmol/L Potassium 4.4 3.5 - 5.1 mmol/L Chloride 110 (H) 98 - 107 mmol/L CO2 17 (L) 22 - 32 mmol/L Anion Gap 9 7 - 15 mmol/L Glucose 95 70 - 120 mg/dL Calcium 7.8 (L) 8.4 - 10.2 mg/dL PHOSPHORUS Result Value Ref Range Phosphorus 4.2 2.5 - 4.8 mg/dL MAGNESIUM Result Value Ref Range Magnesium 2.0 1.5 - 2.6 mg/dL URINALYSIS, REFLEX TO MICROSCOPIC Result Value Ref Range Color, Urine Yellow Light Yellow, Yellow, Dark Yellow Clarity, Urine Clear Clear Glucose, Urine Negative Negative mg/dL Bilirubin, Urine Negative Negative Ketone, Urine Negative Negative mg/dL Specific [place], Urine 1.015 1.003 - 1.030 Blood, Urine Negative Negative pH, Urine 6.0 5.0 - 7.5 Units Protein, Urine Negative Negative mg/dL Urobilinogen, Urine 0.2 0.2, 1.0 mg/dL Nitrite, Urine Negative Negative Esterase, Urine Negative Negative Comment, Urine BASIC METABOLIC PANEL Result Value Ref Range BUN 66 (H) 6 - 20 mg/dL Creatinine 1.2 (H) 0.5 - 1.0 mg/dL Estimated Glomerular Filtration Rate 50 (L) >=60 mL/min Sodium 139 135 - 146 mmol/L Potassium 4.5 3.5 - 5.1 mmol/L Chloride 110 (H) 98 - 107 mmol/L CO2 16 (L) 22 - 32 mmol/L Anion Gap 13 7 - 15 mmol/L Glucose 116 70 - 120 mg/dL Calcium 8.6 8.4 - 10.2 mg/dL PHOSPHORUS Result Value Ref Range Phosphorus 4.6 2.5 - 4.8 mg/dL MAGNESIUM Result Value Ref Range Magnesium 2.3 1.5 - 2.6 mg/dL BASIC METABOLIC PANEL Result Value Ref Range BUN 82 (H) 6 - 20 mg/dL Creatinine 1.5 (H) 0.5 - 1.0 mg/dL Estimated Glomerular Filtration Rate 39 (L) >=60 mL/min Sodium 137 135 - 146 mmol/L Potassium 4.5 3.5 - 5.1 mmol/L Chloride 107 98 - 107 mmol/L CO2 15 (L) 22 - 32 mmol/L Anion Gap 15 7 - 15 mmol/L Glucose 96 70 - 120 mg/dL Calcium 8.3 (L) 8.4 - 10.2 mg/dL PHOSPHORUS Result Value Ref Range Phosphorus 5.4 (H) 2.5 - 4.8 mg/dL MAGNESIUM Result Value Ref Range Magnesium 2.5 1.5 - 2.6 mg/dL BASIC METABOLIC PANEL Result Value Ref Range BUN 83 (H) 6 - 20 mg/dL Creatinine 1.6 (H) 0.5 - 1.0 mg/dL Estimated Glomerular Filtration Rate 38 (L) >=60 mL/min Sodium 134 (L) 135 - 146 mmol/L Potassium 4.5 3.5 - 5.1 mmol/L Chloride 106 98 - 107 mmol/L CO2 15 (L) 22 - 32 mmol/L Anion Gap 13 7 - 15 mmol/L Glucose 118 70 - 120 mg/dL Calcium 8.5 8.4 - 10.2 mg/dL PHOSPHORUS Result Value Ref Range Phosphorus 4.3 2.5 - 4.8 mg/dL MAGNESIUM Result Value Ref Range Magnesium 2.5 1.5 - 2.6 mg/dL HEPATIC FUNCTION PANEL Result Value Ref Range Albumin 3.0 (L) 3.8 - 5.0 g/dL AST 22 10 - 35 U/L Alkaline Phosphatase 112 35 - 130 U/L ALT 30 10 - 35 U/L Bilirubin, Total <0.2 <=1.2 mg/dL Bilirubin, Direct <0.2 0.0 - 0.3 mg/dL Protein 5.8 (L) 6.0 - 8.3 g/dL TRIGLYCERIDES Result Value Ref Range Triglycerides 101 <=174 mg/dL CALCIUM, IONIZED Result Value Ref Range Calcium, Ionized 1.27 1.13 - 1.32 mmol/L BASIC METABOLIC PANEL Result Value Ref Range BUN 83 (H) 6 - 20 mg/dL Creatinine 1.6 (H) 0.5 - 1.0 mg/dL Estimated Glomerular Filtration Rate 37 (L) >=60 mL/min Sodium 136 135 - 146 mmol/L Potassium 4.7 3.5 - 5.1 mmol/L Chloride 107 98 - 107 mmol/L CO2 16 (L) 22 - 32 mmol/L Anion Gap 13 7 - 15 mmol/L Glucose 118 70 - 120 mg/dL Calcium 8.4 8.4 - 10.2 mg/dL PHOSPHORUS Result Value Ref Range Phosphorus 4.3 2.5 - 4.8 mg/dL MAGNESIUM Result Value Ref Range Magnesium 2.6 1.5 - 2.6 mg/dL BASIC METABOLIC PANEL Result Value Ref Range BUN 91 (H) 6 - 20 mg/dL Creatinine 1.9 (H) 0.5 - 1.0 mg/dL Estimated Glomerular Filtration Rate 29 (L) >=60 mL/min Sodium 136 135 - 146 mmol/L Potassium 4.8 3.5 - 5.1 mmol/L Chloride 106 98 - 107 mmol/L CO2 15 (L) 22 - 32 mmol/L Anion Gap 15 7 - 15 mmol/L Glucose 139 (H) 70 - 120 mg/dL Calcium 8.1 (L) 8.4 - 10.2 mg/dL PHOSPHORUS Result Value Ref Range Phosphorus 3.9 2.5 - 4.8 mg/dL MAGNESIUM Result Value Ref Range Magnesium 2.5 1.5 - 2.6 mg/dL BASIC METABOLIC PANEL Result Value Ref Range BUN 102 (H) 6 - 20 mg/dL Creatinine 2.2 (H) 0.5 - 1.0 mg/dL Estimated Glomerular Filtration Rate 25 (L) >=60 mL/min Sodium 135 135 - 146 mmol/L Potassium 4.5 3.5 - 5.1 mmol/L Chloride 106 98 - 107 mmol/L CO2 13 (L) 22 - 32 mmol/L Anion Gap 16 (H) 7 - 15 mmol/L Glucose 151 (H) 70 - 120 mg/dL Calcium 8.2 (L) 8.4 - 10.2 mg/dL PHOSPHORUS Result Value Ref Range Phosphorus 4.3 2.5 - 4.8 mg/dL MAGNESIUM Result Value Ref Range Magnesium 2.6 1.5 - 2.6 mg/dL TROPONIN T, HIGH SENSITIVITY Result Value Ref Range Troponin T, High Sensitivity 41 (H) <=14 ng/L PHOSPHORUS Result Value Ref Range Phosphorus 3.6 2.5 - 4.8 mg/dL MAGNESIUM Result Value Ref Range Magnesium 2.4 1.5 - 2.6 mg/dL RESPIRATORY PATHOGEN PANEL, PCR Result Value Ref Range Adenovirus by PCR Negative Negative Coronavirus 229E by PCR Negative Negative Coronavirus HKU1 by PCR Negative Negative Coronavirus NL63 by PCR Negative Negative Coronavirus OC43 by PCR Negative Negative Coronavirus SARS-CoV-2 by PCR Negative Negative Human Metapneumovirus by PCR Negative Negative Rhinovirus/Enterovirus by PCR Negative Negative Influenza A Virus by PCR Negative Negative Influenza B Virus by PCR Negative Negative Parainfluenza Virus 1 by PCR Negative Negative Parainfluenza Virus 2 by PCR Negative Negative Parainfluenza Virus 3 by PCR Negative Negative Parainfluenza Virus 4 by PCR Negative Negative Respiratory Syncytial Virus by PCR Negative Negative Bordetella pertussis by PCR Negative Negative Chlamydia pneumoniae by PCR Negative Negative Mycoplasma pneumoniae by PCR Negative Negative Bordetella parapertussis by PCR Negative Negative CULTURE, BLOOD Result Value Ref Range Blood Culture Growth No growth CULTURE, BLOOD Result Value Ref Range Blood Culture Growth No growth BASIC METABOLIC PANEL Result Value Ref Range BUN 92 (H) 6 - 20 mg/dL Creatinine 1.8 (H) 0.5 - 1.0 mg/dL Estimated Glomerular Filtration Rate 31 (L) >=60 mL/min Sodium 136 135 - 146 mmol/L Potassium 3.7 3.5 - 5.1 mmol/L Chloride 105 98 - 107 mmol/L CO2 15 (L) 22 - 32 mmol/L Anion Gap 16 (H) 7 - 15 mmol/L Glucose 171 (H) 70 - 120 mg/dL Calcium 8.3 (L) 8.4 - 10.2 mg/dL CBC Result Value Ref Range WBC 17.65 (H) 4.00 - 10.80 K/uL RBC 2.33 3.85 - 5.15 M/uL HGB 7.6 (L) 12.0 - 15.3 g/dL HCT 23.5 (L) 36.0 - 45.2 % MCV 100.9 81.5 - 97.5 fL MCH 32.6 27.0 - 34.0 pg MCHC 32.3 32.0 - 36.0 g/dL RDW 14.0 11.5 - 15.5 % PLT 297 140 - 400 K/uL MPV 11.8 6.6 - 11.1 fL nRBCs 0 <=0 /100 WBCs BLOOD GAS, ARTERIAL Result Value Ref Range Temperature 37.0 C pH, Arterial 7.343 (L) 7.350 - 7.450 units pCO2, Arterial 32.2 (L) 35.0 - 45.0 mmHg pO2, Arterial 80.2 75.0 - 100.0 mmHg Base Excess, Arterial -7.5 (L) -2.0 - 2.0 mmol/L HGB 7.1 (L) 12.0 - 15.3 g/dL Oxyhemoglobin, Arterial 90.0 (L) 94.0 - 99.0 % total Hgb Carboxyhemoglobin, Whole Blood 0.7 <=1.5 % total Hgb Methemoglobin, Whole Blood 2.7 (H) <=1.5 % total Hgb Reduced Hemoglobin, Arterial 6.6 (H) 0.0 - 5.0 % total Hgb O2 Content, Arterial 9.2 (L) 15.0 - 24.0 %vol FiO2 Not Provided % O2 Flow, Arterial 4 L/min Bicarbonate, Whole Blood 17.0 (L) 23.0 - 31.0 mmol/L LACTATE Result Value Ref Range Lactate 0.9 0.4 - 2.0 mmol/L CBC Result Value Ref Range WBC 17.02 (H) 4.00 - 10.80 K/uL RBC 2.27 3.85 - 5.15 M/uL HGB 7.2 (L) 12.0 - 15.3 g/dL HCT 23.0 (L) 36.0 - 45.2 % MCV 101.3 81.5 - 97.5 fL MCH 31.7 27.0 - 34.0 pg MCHC 31.3 32.0 - 36.0 g/dL RDW 14.2 11.5 - 15.5 % PLT 289 140 - 400 K/uL MPV 11.8 6.6 - 11.1 fL nRBCs 0 <=0 /100 WBCs TYPE AND SCREEN Result Value Ref Range ABO A Rh Positive Red Blood Cell Antibody Screen Negative Specimen Expiration Date 10/04/2023 23:59 PROCALCITONIN Result Value Ref Range Procalcitonin 0.40 (H) <0.10 ng/mL CBC Result Value Ref Range WBC 17.00 (H) 4.00 - 10.80 K/uL RBC 2.79 3.85 - 5.15 M/uL HGB 8.4 (L) 12.0 - 15.3 g/dL HCT 26.4 (L) 36.0 - 45.2 % MCV 94.6 81.5 - 97.5 fL MCH 30.1 27.0 - 34.0 pg MCHC 31.8 32.0 - 36.0 g/dL RDW 17.9 11.5 - 15.5 % PLT 274 140 - 400 K/uL MPV 11.7 6.6 - 11.1 fL nRBCs 0 <=0 /100 WBCs *Note: Due to a large number of results and/or encounters for the requested time period, some results have not been displayed. A complete set of results can be found in Results Review. XR SHOULDER, 2 OR MORE VIEWS Final Result PROCEDURE INFORMATION: Exam: XR Right Shoulder Exam date and time: 10/06/2023 1:21 PM Age: 58 years old Clinical indication: Other: Right shoulder pain, no known injury TECHNIQUE: Imaging protocol: Radiologic exam of the right shoulder. Views: 2 or more views. COMPARISON: VASC DUPLEX VENOUS LE UNILAT 04/10/2023 12:33 PM FINDINGS: Bones/joints: Diffuse osteopenia. No fracture or dislocation. Unremarkable glenohumeral joint. Unremarkable AC joint. Lungs: Right lung demonstrates diffuse hazy opacities without significant change compared to the 10/02/2023 CXR. Soft tissues: Normal. IMPRESSION IMPRESSION: 1. Unremarkable right shoulder. 2. Right lung demonstrates diffuse hazy opacities without significant change compared to the 10/02/2023 CXR. THIS DOCUMENT HAS BEEN ELECTRONICALLY SIGNED BY FELICIANO TOVAR MD IR LUMBAR PUNCTURE Final Result PROCEDURE: Diagnostic lumbar puncture . INDICATION: Workup for multiple sclerosis ATTENDING (OPERATING PHYSICIAN): Romana CONSENT: After a detailed discussion of the procedure, risks, benefits and alternative treatment options, informed consent was obtained. TIME OUT: A time out procedure was performed. The patient's identification was verified. Informed consent with agreement of procedure, site and position was obtained. All necessary equipment was available prior to procedure. CONTRAST: No contrast was administered. COMPLICATIONS: None. ANESTHESIA: Local lidocaine. MEDICATIONS: See MAR PROCEDURE DESCRIPTION: The lumbar area was prepped and draped in the usual sterile fashion. Using intermittent fluoroscopic guidance, attempts to access the L4-5 disc space failed. Using intermittent fluoroscopic guidance, the thecal sac was penetrated at the L5-S1 level with a 22 gauge 6 inch spinal needle with confirmation by immediate return of clear and colorless cerebrospinal fluid (CSF). Opening pressure measured mm CSF. CSF was collected in four tubes as labeled in consecutive order and sent to the lab for analysis. The needle was removed and the site was dressed. The procedure was performed by Dr. Avendano FINDINGS: Single spot image demonstrates the spinal needle at the L5-S1 level. Clear and colorless CSF was returned from the needle. IMPRESSION IMPRESSION: Successful fluoroscopic-guided diagnostic lumbar puncture PLAN: Follow-up of cerebrospinal fluid analysis and further management per primary team XR CHEST 1 VIEW Final Result PROCEDURE INFORMATION: Exam: XR Chest Exam date and time: 10/02/2023 5:42 PM Age: 58 years old Clinical indication: Other: SOB; Additional info: Lethargy, abnormal breathing pattern TECHNIQUE: Imaging protocol: Radiologic exam of the chest. Views: 1 view. COMPARISON: DX XR CHEST 1 VIEW 10/01/2023 11:06 PM FINDINGS: Tubes, catheters and devices: Left MediPort catheter is in stable position with the tip in the cavoatrial junction. Dumbbell-shaped device which likely represents a cystogastrostomy is seen in the left upper quadrant. Lungs: Redemonstration of stable diffuse ground-glass and interstitial opacities bilaterally greater on the right. Pleural spaces: Unremarkable. No pleural effusion. No pneumothorax. Heart/Mediastinum: Stable cardiomediastinal silhouette. Bones/joints: Degenerative changes with S-shaped scoliosis of the thoracic spine. Organs: Surgical clips in the right upper quadrant from prior cholecystectomy. IMPRESSION IMPRESSION: No change in the mixed airspace opacities bilaterally secondary to edema and/or pneumonia. THIS DOCUMENT HAS BEEN ELECTRONICALLY SIGNED BY DARIN VILLELA MD MRI T SPINE W WO CONTRAST Final Result EXAM: MRI T SPINE W WO CONTRAST HISTORY: Acute urinary retention, unsteady gait, concern for potential demyelinating disease TECHNIQUE: MRI of the thoracic spine was performed with and without intravenous Gadavist contrast COMPARISON: CT abdomen/pelvis 07/31/2023, MRI cervical spine 09/02/2023 FINDINGS: ALIGNMENT: Exaggeration of the midthoracic kyphosis. Severe dextroscoliosis centered at T7-T8 and levoscoliosis centered T12-L1. Stepwise right lateral listhesis of T10 on T11 and T11 on T12. BONES: Chronic anterior wedging of the T12 and L1 vertebral bodies with less than 50% total height loss. Mild chronic left lateral wedging of the T7 and T8 vertebral bodies and chronic right lateral wedging of the T11-L1 vertebral bodies. No aggressive appearing enhancing osseous lesions. DISCS: Multilevel disc desiccation and associated height loss. Asymmetric, chronic splaying of the right T6-T9 and left T10-L1 disc spaces. Scattered Schmorl's nodes throughout the thoracic spine. Modic 2 changes marginating the T12-L1 disc space. No abnormal intradiscal enhancement. SPINAL CORD: Extremely limited evaluation of the thoracic spinal cord due to extensive motion degradation. No obvious areas of abnormal enhancement, enhancement, or volume loss involving the thoracic spinal cord. Left lateral displacement of the upper/midthoracic cord related to scoliotic curvature of the spine. Grossly normal of the conus medullaris which terminates at around the level of T12-L1. No large epidural fluid collections. DISC LEVELS: Limited characterization of the individual disc levels due to motion degradation. Multilevel thoracic spondylosis with posterior disc bulges, facet arthrosis, and ligamentous thickening. No severe spinal canal stenosis appreciated. PARASPINAL SOFT TISSUES: Diffuse atrophy of the dorsal paraspinal musculature. Nondiagnostic evaluation of the upper abdominal contents. VISUALIZED INTRATHORACIC STRUCTURES: No lobar consolidations. IMPRESSION IMPRESSION: No obvious evidence of demyelinating disease involving the thoracic spinal cord, although evaluation is severely limited by motion degradation. If there is persistent concern for potential demyelinating disease, a repeat examination under sedation should be considered. Midthoracic dextroscoliosis and thoracolumbar levoscoliosis as described, associated with chronic multilevel vertebral body wedging and asymmetric disc space widening. Limited characterization of spondylitic changes at the individual disc levels. No evidence for severe thoracic spinal canal stenosis. XR CHEST 1 VIEW Final Result PROCEDURE INFORMATION: Exam: XR Chest Exam date and time: 10/01/2023 11:06 PM Age: 58 years old Clinical indication: Other: Worsening dyspnea TECHNIQUE: Imaging protocol: Radiologic exam of the chest. Views: 1 view. COMPARISON: DX XR CHEST 1 VIEW 10/01/2023 4:45 AM FINDINGS: Lungs: Persistent moderate vascular congestion/bilateral diffuse airspace disease. Left Hbcetr-X-Ntnh catheter noted. Pleural spaces: No pleural effusion. No pneumothorax. Heart/Mediastinum: No cardiomegaly. Bones/joints: Degenerative changes with scoliosis. IMPRESSION IMPRESSION: Persistent moderate vascular congestion/bilateral diffuse airspace disease. THIS DOCUMENT HAS BEEN ELECTRONICALLY SIGNED BY HANDY HUIZAR MD XR CHEST 1 VIEW Final Result PROCEDURE INFORMATION: Exam: XR Chest Exam date and time: 10/01/2023 4:45 AM Age: 58 years old Clinical indication: Other: Hypoxia; Additional info: Hypoxia. Please have patient sitting upright for study and not lying flat. TECHNIQUE: Imaging protocol: Radiologic exam of the chest. Views: 1 view. COMPARISON: DX XR CHEST 1 VIEW 10/01/2023 12:02 AM FINDINGS: Tubes, catheters and devices: A catheter which may represent an abandoned catheter from a prior left anterior chest wall port is again seen, with tip projecting over the superior vena cava. Lungs: Stable moderate bilateral patchy ground-glass and interstitial opacities in the mid to upper lungs. Pleural spaces: No pneumothorax. Trace left pleural effusion. Heart/Mediastinum: Mild cardiomegaly. Bones/joints: Moderate rotatory scoliosis. No acute or suspicious osseous abnormalities. Gastrointestinal tract: Partially imaged prominent air-filled bowel loops. Other findings: Cholecystectomy clips. A dumbbell-shaped device which may represent a cystogastrostomy device projects over the epigastric region. IMPRESSION IMPRESSION: 1. Stable moderate bilateral patchy ground-glass and interstitial opacities in the mid to upper lungs. This may represent multifocal pneumonia in the appropriate clinical setting. 2. Trace left pleural effusion. THIS DOCUMENT HAS BEEN ELECTRONICALLY SIGNED BY VERNA GIBSON MD XR CHEST 1 VIEW Final Result PROCEDURE INFORMATION: Exam: XR Chest Exam date and time: 10/01/2023 12:02 AM Age: 58 years old Clinical indication: Other: Lower back pain that shoots up her back, o2 levels dropped; Additional info: Spo2 drop and new back pain TECHNIQUE: Imaging protocol: Radiologic exam of the chest. Views: 1 view. COMPARISON: DX XR CHEST 1 VIEW 09/20/2023 2:28 PM FINDINGS: Tubes, catheters and devices: There appears to be an abandoned left port catheter with tip extending to the cavoatrial junction. Lungs: There is multifocal parenchymal consolidation which is significantly increased from the comparison study and could reflect multifocal pneumonia, ARDS, or edema. Pleural spaces: No large effusion or pneumothorax. Heart/Mediastinum: No evidence of mediastinal widening or cardiac silhouette enlargement; the mediastinum and heart appear within normal limits for contour and size. Bones/joints: No evidence of acute osseous abnormalities within the visualized portions of the thoracic spine and ribs. Osseous structures appear appropriate for patient age. Gastrointestinal tract: There is mild gaseous distention of partially visualized bowel loops. IMPRESSION IMPRESSION: There is multifocal parenchymal consolidation which is significantly increased from the comparison study and could reflect multifocal pneumonia, ARDS, or edema. THIS DOCUMENT HAS BEEN ELECTRONICALLY SIGNED BY EFRAIN GILMAN MD US RENAL Final Result PROCEDURE INFORMATION: Exam: US Retroperitoneal; Complete; Kidneys and Bladder Exam date and time: 09/29/2023 3:29 PM Age: 58 years old Clinical indication: Abnormal findings; Abnormal lab test; Abnormal kidney function lab tests; Prior surgery; Surgery date: 6+ months; Surgery type: RT nephrectomy; Additional info: Robinson. HX nephrectomy TECHNIQUE: Imaging protocol: Real-time ultrasound of the retroperitoneum with image documentation. Complete exam focused on the kidneys and bladder. COMPARISON: US PELVIS TRANS-ABDOMINAL 09/27/2023 11:15 AM FINDINGS: Right kidney: Surgically absent. Left kidney: 10.9 x 4.1 x 4.9 cm. 4 mm calcification in the midportion with moderate hydronephrosis. Urinary bladder: Distended bladder with increased postvoid residue. Bladder diverticulum. IMPRESSION IMPRESSION: Left kidney demonstrates 4 mm calcification in the midportion with moderate hydronephrosis. THIS DOCUMENT HAS BEEN ELECTRONICALLY SIGNED BY RUI MARTINEZ MD US PELVIS TRANS-ABDOMINAL Final Result PROCEDURE INFORMATION: Exam: US Nonobstetric Pelvis; Complete Exam date and time: 09/27/2023 11:15 AM Age: 58 years old Clinical indication: Abnormal findings; Abnormal imaging test; Additional info: Abnormal abd US TECHNIQUE: Imaging protocol: Transabdominal pelvic nonobstetric ultrasound. Complete exam. Real time ultrasound with image documentation. COMPARISON: US PELVIS TRANS-VAGINAL NON-OB 09/09/2020 8:48 AM FINDINGS: Uterus: Uterus is anteverted and measures 4.9 x 1.7 x 3.5 cm. Endometrial stripe is normal in thickness measuring 3.7 mm. Right ovary/adnexa: Not visualized. Left ovary/adnexa: Not visualized. Intraperitoneal space: No intraperitoneal fluid. Urinary bladder: Normal. IMPRESSION IMPRESSION: 1. Unremarkable appearance of the uterus and endometrium. 2. Nonvisualization of the ovaries. No adnexal masses. THIS DOCUMENT HAS BEEN ELECTRONICALLY SIGNED BY DARIN VILLELA MD XR ABDOMEN 1 VIEW Final Result PROCEDURE INFORMATION: Exam: XR Abdomen Exam date and time: 09/25/2023 9:00 AM Age: 58 years old Clinical indication: Other: Abd pain and tenderness pelvic area, bloating and constipation; Additional info: Abd pain and bloating TECHNIQUE: Imaging protocol: Radiologic exam of the abdomen. Views: Frontal supine view of the abdomen. 1 View. COMPARISON: CT ABDOMEN PELVIS WO(Adult) 07/31/2023 12:13 PM FINDINGS: Gastrointestinal tract: The stool and gas pattern is nonspecific. The stool and gas pattern is nonspecific. Intraperitoneal space: There is a stent identified in the left upper quadrant Organs: Surgical clips are seen from prior cholecystectomy. There is increased density over the pelvis. This may be due to the uterus. Gynecological follow-up is advised for assessment the endometrial stripe Vasculature: Vascular calcification is seen Bones/joints: There is a rotary scoliosis convex to the left within the spine Soft tissues: There surgical clips in the right inguinal region IMPRESSION IMPRESSION: Gynecological follow-up advised THIS DOCUMENT HAS BEEN ELECTRONICALLY SIGNED BY CARLOTTA ALEXANDER MD XR CHEST 1 VIEW Final Result PROCEDURE INFORMATION: Exam: XR Chest Exam date and time: 09/20/2023 2:28 PM Age: 58 years old Clinical indication: Other: General weakness; Additional info: Failure to thrive TECHNIQUE: Imaging protocol: Radiologic exam of the chest. Views: 1 view. COMPARISON: 1. DX XR CHEST 1 VIEW 12/11/2022 10:01 AM 2. Two-view chest x-ray 11/08/2022 FINDINGS: Tubes, catheters and devices: Left-sided central line, tip in the region of the cavoatrial junction, unchanged. Lungs: Persistent mild bronchial wall thickening. No developing focal infiltrate. Pleural spaces: No pleural effusion or pneumothorax. Heart/Mediastinum: Stable heart size. Bones/joints: Severe scoliosis thoracolumbar spine. Intraperitoneal space: Right upper quadrant clips. IMPRESSION IMPRESSION: 1. No acute cardiopulmonary disease. 2. Possible mild bronchitis. THIS DOCUMENT HAS BEEN ELECTRONICALLY SIGNED BY TERESA PATEL MD Assessment and Plan IMPRESSION : Principal Problem: Failure to thrive in adult Active Problems: Anemia Intestinal postoperative nonabsorption Chronic pain syndrome Hereditary and idiopathic peripheral neuropathy Cachexia (HCC) On total parenteral nutrition (TPN) MDD (major depressive disorder), recurrent episode, moderate (HCC) Bipolar disorder (HCC) Tobacco abuse Fall at home Generalized weakness Adjustment disorder ROBINSON (acute kidney injury) (HCC) Acute urinary retention Hypoxia Multifocal pneumonia Acute hypoxic respiratory failure (HCC) Mixed incontinence Retention of urine Acute pain of right shoulder Resolved Problems: * No resolved hospital problems. * I have examined the patient and consistent with the dietitian's findings found malnutrition presentof Severe (09/21/23 1019) degree. This is consistent with such due to Fat loss;Muscle loss;Inadequate energy intake;Weight loss (09/21/23 1019). I have also reviewed and agree with the dietitian's plan of care which include Nutrition support monitoring;Oral nutritional supplement ordered/adjusted (10/05/23 1412). DIFFERENTIAL AND PLAN: - s/p LP on 10/04 to evaluate for MS. Patient can follow-up outpatient with her neurologist two viewresults of her MS labs. - appreciate Neurology input -appreciate nutrition input. Continue TPN - Continue supplemental oxygen. Wean as able. Ambulatory pulse ox prior to discharge. Currently on 4 L nasal cannula - ambulatory pulse ox in the morning - completed course of antibiotics for possible multifocal pneumonia. - continue ferrous sulfate for iron-deficiency - nicotine patch - BMP and CBC reviewed. Currently stable. - vitamin B1 pending - lidocaine patch for right shoulder pain - PT/OT - care management. Plan is for patient to return home upon discharge - continue rest of DATA [employer]LE[employer] TECHNICIAN medications - patient has appointment with Neurology on 10/22 - appointment with Urology on 12/03 - Appointment with GI on 10/16 - appointment with Hematology 10/08 PHARMACOLOGIC VTE PROPHYLAXIS: This patient does not have an active medication from one of the medication groupers. CODE STATUS: No Code EXPECTED DISCHARGE DATE: 10/09/2023 I spent a total of 38 minutes coordinating, documenting, and providing care for this patient excluding time spent in the performance of separately billed services. * Carlotta Mejia, RN - 10/06/2023 9:30 PM EDT Nursing Critical Care Response Note [facility]-[address] [id number] Name: Chandrika Hogue Date: 10/06/2023 Time: 10:34 PM Event Location: [facility], Unit Area: 5a In the role of the Critical Response Nurse I was involved in the care of this patient. Method of notification to the critical care response nurse: Follow up previous notification Reason for notification or follow up: Chart Review Respiratory distress Observations/Interventions/Assessment: Pt resting in bed comfortably watching tv. No signs on distress, on 6LNC. Resp even and unlabored. Offered no complaints. Outcome/Plan Will discontinue follow up at this time. Please reach out for questions/concerns, increasing O2 requirements. * Suhail Rojas, [facility] - 10/06/2023 1:30 PM EDT Images from the original note were not included. PHARMACY PARENTERAL NUTRITION CONSULT [address] [id number] Name: Chandrika Hogue Date: 10/04/2023 at 1:30 PM PN per Pharmacy TBW: 44.3 kg Height: 150 cm BMI: 19.73 kg/m2 Age: 58 years Diabetic?: no Central or peripheral administration?: central Current PN parameters: Total Kcal: 1370 (100 % goal) Fluid: 1050 ml (100 % goal) Macronutrients: Amino acids: 60 grams = 240 kcal (4 kcal/gram) = 100 % goal Carbohydrates: 200 grams = 680 kcal (3.4 kcal/gram) = 100 % goal Lipids: 45 grams = 450 kcal (10 kcal/gram) = 100 % goal Micronutrients Electrolytes Na: 40 meq K: 54 meq Phos: 10 mmol M meq Ca: 0 meq Acetate: 40 meq Cl: 40 meq Trace elements: 1 ml Provides Zinc 3 mg Copper 0.3 mg Manganese 55 mcg Selenium 60 mcg Infuvite multivitamin: 10 ml Thiamine 100 mg Octreotide 150 mcg Zinc 5 mg Chloride to acetate ratio: 1 Dextrose mg/kg/min: 1.51 HOME TPN "RECIPE" -Resuming home TPN. -Using trace minerals; currently have no selenium, copper, zinc, or manganese. -Sodium acetate is on backorder; utilizing sodium chloride to provide some Na without administeringtoo much chloride. -Administering TPN daily -Will taper on to administering over 12 hours if patient tolerates.16 hours today, and then 12 hours. 09/21 -Decreased K -Increased phos and dextrose -will do 24 administration today due to increase in macros and will taper after that if patient is stable. 09/22 - D/w Dr. Boswell, d/t labs not being drawn will re-order same TPN regimen as yesterday over 24 hours (decreased potassium acetate from 40 mEq to 20 mEq) - Follow up on labs tomorrow - Update: K at 5.7, d/w nutrition and agree to take all K containing products out for today 09/23 - D/w Dr. Wilkerson regarding TPN, his is okay with adding back 40 mEq of potassium acetate, as well asincreasing protein to 65 g - Added thiamine 100 mg to bag (daily) per Dr. Wilkerson - Start to run over 16 hours tonight 09/24 -decreasing K, administer over 12 hours 09/25 -Remove phos, increase volume to 1500 ml, decrease amino acids to 60 grams, add 150 mcg octreotide 09/26 -sodium acetate is on backorder with no release date, adding and additional 5 mg of zinc, will notify attending that patient may require additional fluid boluses. 09/27 -continue same TPN. 09/28 -Decrease K, start vitamin E 400 PO daily 10/01 -Increase K acetate, give over 24 hours. 10/02 -decreasing volume to 1050 ml due to edema 10/03 -add 5 mmol kphos, 20 hour infusion time; give 2 grams IV magnesium piggyback 10/04 -Increase kphos to 10 mmol, 18 infusion time, add 5 mg of zinc; thiamine level with AM labs on 10/05 10/05 -Continue same TPN, run over 16 hrs Contact the Pharmacy at extension [phone] if there are any questions. * Juan Zaragoza DO - 10/06/2023 10:27 AM EDT Images from the original note were not included. [facility] [id number] INTERVAL HISTORY: 58-year-old female admitted on 09/19 for failure to thrive while on TPN. MRI T-spine with no obvious evidence of demyelinating disease involving the thoracic spine. LP on 10/04: CSF RBC 607, CSF glucose 87, CSF protein 29 Subjective: Patient evaluated at bedside. Currently on 6 L nasal cannula. Patient is still somnolent from waking up. No acute issues overnight. Objective Physical Exam Most Recent Vital Signs: BP: 91 mmHg/62 mmHg (10/06/23 0714) Pulse: 75 (10/06/23 07) Temp: 36.11 C (10/06/2314) Temp Summary: Temp Min: 36.1 C (97 F) Max: 36.8 C (98.2 F) SpO2: 96 % (10/06/23800) O2 flow rate: 6 L/MIN (10/06/23800) Supplemental O2 Delivery: Intermediate Nasal Cannula (10/06/23800) Constitutional: no acute distress Neck: supple, normal range of motion CV: normal rate and rhythm, no murmur, gallops or rub Chest: normal respiratory effort, (+) decreased breath sounds bilaterally Abdomen: normal: soft, bowel sounds normal, no masses, tenderness or organomegaly Extremities: no clubbing, cyanosis, or edema, otherwise grossly normal, warm, and dry Skin: warm, dry, intact: Neuro: alert, oriented to person, place, and time Urethral Catheter Regular catheter (Active) Number of days: 6 Tunneled Central Cath Double Lumen Left Chest (Active) Number of days: 301 STUDIES: Encounter Orders Labs and other studies reviewed with pertinent findings noted below: Results for orders placed or performed during the hospital encounter of 09/20/23 SARS-COV-2 (COVID-19), NAAT Result Value Ref Range SARS-CoV-2 (COVID-19) Result Negative Negative BASIC METABOLIC PANEL Result Value Ref Range BUN 37 (H) 6 - 20 mg/dL Creatinine 1.2 (H) 0.5 - 1.0 mg/dL Estimated Glomerular Filtration Rate 52 (L) >=60 mL/min Sodium 136 135 - 146 mmol/L Potassium 5.5 (H) 3.5 - 5.1 mmol/L Chloride 111 (H) 98 - 107 mmol/L CO2 13 (L) 22 - 32 mmol/L Anion Gap 12 7 - 15 mmol/L Glucose 99 70 - 120 mg/dL Calcium 8.1 (L) 8.4 - 10.2 mg/dL CALCIUM, IONIZED Result Value Ref Range Calcium, Ionized 1.34 (H) 1.13 - 1.32 mmol/L PHOSPHORUS Result Value Ref Range Phosphorus 5.0 (H) 2.5 - 4.8 mg/dL MAGNESIUM Result Value Ref Range Magnesium 1.9 1.5 - 2.6 mg/dL CBC Result Value Ref Range WBC 5.66 4.00 - 10.80 K/uL RBC 2.88 3.85 - 5.15 M/uL HGB 9.3 (L) 12.0 - 15.3 g/dL HCT 29.8 (L) 36.0 - 45.2 % MCV 103.5 81.5 - 97.5 fL MCH 32.3 27.0 - 34.0 pg MCHC 31.2 32.0 - 36.0 g/dL RDW 14.8 11.5 - 15.5 % PLT 330 140 - 400 K/uL MPV 11.1 6.6 - 11.1 fL nRBCs 0 <=0 /100 WBCs BASIC METABOLIC PANEL Result Value Ref Range BUN 39 (H) 6 - 20 mg/dL Creatinine 1.1 (H) 0.5 - 1.0 mg/dL Estimated Glomerular Filtration Rate 57 (L) >=60 mL/min Sodium 135 135 - 146 mmol/L Potassium 5.1 3.5 - 5.1 mmol/L Chloride 112 (H) 98 - 107 mmol/L CO2 16 (L) 22 - 32 mmol/L Anion Gap 7 7 - 15 mmol/L Glucose 88 70 - 120 mg/dL Calcium 8.2 (L) 8.4 - 10.2 mg/dL PHOSPHORUS Result Value Ref Range Phosphorus 3.2 2.5 - 4.8 mg/dL MAGNESIUM Result Value Ref Range Magnesium 1.9 1.5 - 2.6 mg/dL VITAMIN A (RETINOL) Result Value Ref Range Vitamin A (Retinol) 51 38 - 98 mcg/dL 25-HYDROXY VITAMIN D Result Value Ref Range 25-Hydroxy Vitamin D 9 (L) >19 ng/mL VITAMIN E (TOCOPHEROL) Result Value Ref Range Alpha-Tocopherol 4.6 (L) 5.7 - 19.9 mg/L Qowh-Udkbv-Nengdohxbc 2.6 <=4.3 mg/L VITAMIN K Result Value Ref Range Vitamin K >2500 (H) 130 - 1500 pg/mL VITAMIN B1 (THIAMINE), BLOOD, LC/MS/MS Result Value Ref Range Vitamin B1 (Thiamine),B 250 (H) 78 - 185 nmol/L FOLIC ACID Result Value Ref Range Folic Acid 8.2 >4.5 ng/mL VITAMIN B12 Result Value Ref Range Vitamin B12 398 232 - 1,245 pg/mL METHYLMALONIC ACID, SERUM Result Value Ref Range Methylmalonic Acid 2045 (H) 87 - 318 nmol/L COPPER, SERUM OR PLASMA Result Value Ref Range Copper 85 70 - 175 mcg/dL ZINC Result Value Ref Range Zinc 38 (L) 60 - 130 mcg/dL IRON SCREEN, INCLUDING TIBC Result Value Ref Range Iron 39 33 - 151 ug/dL Iron Binding Capacity 258 250 - 425 ug/dL Transferrin Saturation Percent 15 15 - 55 % FERRITIN Result Value Ref Range Ferritin 16 13 - 150 ng/mL BASIC METABOLIC PANEL Result Value Ref Range BUN 45 (H) 6 - 20 mg/dL Creatinine 1.1 (H) 0.5 - 1.0 mg/dL Estimated Glomerular Filtration Rate 58 (L) >=60 mL/min Sodium 134 (L) 135 - 146 mmol/L Potassium 5.7 (H) 3.5 - 5.1 mmol/L Chloride 107 98 - 107 mmol/L CO2 16 (L) 22 - 32 mmol/L Anion Gap 11 7 - 15 mmol/L Glucose 150 (H) 70 - 120 mg/dL Calcium 8.5 8.4 - 10.2 mg/dL PHOSPHORUS Result Value Ref Range Phosphorus 3.9 2.5 - 4.8 mg/dL MAGNESIUM Result Value Ref Range Magnesium 2.0 1.5 - 2.6 mg/dL BASIC METABOLIC PANEL Result Value Ref Range BUN 47 (H) 6 - 20 mg/dL Creatinine 1.0 0.5 - 1.0 mg/dL Estimated Glomerular Filtration Rate 63 >=60 mL/min Sodium 136 135 - 146 mmol/L Potassium 4.4 3.5 - 5.1 mmol/L Chloride 110 (H) 98 - 107 mmol/L CO2 17 (L) 22 - 32 mmol/L Anion Gap 9 7 - 15 mmol/L Glucose 95 70 - 120 mg/dL Calcium 7.8 (L) 8.4 - 10.2 mg/dL PHOSPHORUS Result Value Ref Range Phosphorus 4.2 2.5 - 4.8 mg/dL MAGNESIUM Result Value Ref Range Magnesium 2.0 1.5 - 2.6 mg/dL URINALYSIS, REFLEX TO MICROSCOPIC Result Value Ref Range Color, Urine Yellow Light Yellow, Yellow, Dark Yellow Clarity, Urine Clear Clear Glucose, Urine Negative Negative mg/dL Bilirubin, Urine Negative Negative Ketone, Urine Negative Negative mg/dL Specific [place], Urine 1.015 1.003 - 1.030 Blood, Urine Negative Negative pH, Urine 6.0 5.0 - 7.5 Units Protein, Urine Negative Negative mg/dL Urobilinogen, Urine 0.2 0.2, 1.0 mg/dL Nitrite, Urine Negative Negative Esterase, Urine Negative Negative Comment, Urine BASIC METABOLIC PANEL Result Value Ref Range BUN 66 (H) 6 - 20 mg/dL Creatinine 1.2 (H) 0.5 - 1.0 mg/dL Estimated Glomerular Filtration Rate 50 (L) >=60 mL/min Sodium 139 135 - 146 mmol/L Potassium 4.5 3.5 - 5.1 mmol/L Chloride 110 (H) 98 - 107 mmol/L CO2 16 (L) 22 - 32 mmol/L Anion Gap 13 7 - 15 mmol/L Glucose 116 70 - 120 mg/dL Calcium 8.6 8.4 - 10.2 mg/dL PHOSPHORUS Result Value Ref Range Phosphorus 4.6 2.5 - 4.8 mg/dL MAGNESIUM Result Value Ref Range Magnesium 2.3 1.5 - 2.6 mg/dL BASIC METABOLIC PANEL Result Value Ref Range BUN 82 (H) 6 - 20 mg/dL Creatinine 1.5 (H) 0.5 - 1.0 mg/dL Estimated Glomerular Filtration Rate 39 (L) >=60 mL/min Sodium 137 135 - 146 mmol/L Potassium 4.5 3.5 - 5.1 mmol/L Chloride 107 98 - 107 mmol/L CO2 15 (L) 22 - 32 mmol/L Anion Gap 15 7 - 15 mmol/L Glucose 96 70 - 120 mg/dL Calcium 8.3 (L) 8.4 - 10.2 mg/dL PHOSPHORUS Result Value Ref Range Phosphorus 5.4 (H) 2.5 - 4.8 mg/dL MAGNESIUM Result Value Ref Range Magnesium 2.5 1.5 - 2.6 mg/dL BASIC METABOLIC PANEL Result Value Ref Range BUN 83 (H) 6 - 20 mg/dL Creatinine 1.6 (H) 0.5 - 1.0 mg/dL Estimated Glomerular Filtration Rate 38 (L) >=60 mL/min Sodium 134 (L) 135 - 146 mmol/L Potassium 4.5 3.5 - 5.1 mmol/L Chloride 106 98 - 107 mmol/L CO2 15 (L) 22 - 32 mmol/L Anion Gap 13 7 - 15 mmol/L Glucose 118 70 - 120 mg/dL Calcium 8.5 8.4 - 10.2 mg/dL PHOSPHORUS Result Value Ref Range Phosphorus 4.3 2.5 - 4.8 mg/dL MAGNESIUM Result Value Ref Range Magnesium 2.5 1.5 - 2.6 mg/dL HEPATIC FUNCTION PANEL Result Value Ref Range Albumin 3.0 (L) 3.8 - 5.0 g/dL AST 22 10 - 35 U/L Alkaline Phosphatase 112 35 - 130 U/L ALT 30 10 - 35 U/L Bilirubin, Total <0.2 <=1.2 mg/dL Bilirubin, Direct <0.2 0.0 - 0.3 mg/dL Protein 5.8 (L) 6.0 - 8.3 g/dL TRIGLYCERIDES Result Value Ref Range Triglycerides 101 <=174 mg/dL CALCIUM, IONIZED Result Value Ref Range Calcium, Ionized 1.27 1.13 - 1.32 mmol/L BASIC METABOLIC PANEL Result Value Ref Range BUN 83 (H) 6 - 20 mg/dL Creatinine 1.6 (H) 0.5 - 1.0 mg/dL Estimated Glomerular Filtration Rate 37 (L) >=60 mL/min Sodium 136 135 - 146 mmol/L Potassium 4.7 3.5 - 5.1 mmol/L Chloride 107 98 - 107 mmol/L CO2 16 (L) 22 - 32 mmol/L Anion Gap 13 7 - 15 mmol/L Glucose 118 70 - 120 mg/dL Calcium 8.4 8.4 - 10.2 mg/dL PHOSPHORUS Result Value Ref Range Phosphorus 4.3 2.5 - 4.8 mg/dL MAGNESIUM Result Value Ref Range Magnesium 2.6 1.5 - 2.6 mg/dL BASIC METABOLIC PANEL Result Value Ref Range BUN 91 (H) 6 - 20 mg/dL Creatinine 1.9 (H) 0.5 - 1.0 mg/dL Estimated Glomerular Filtration Rate 29 (L) >=60 mL/min Sodium 136 135 - 146 mmol/L Potassium 4.8 3.5 - 5.1 mmol/L Chloride 106 98 - 107 mmol/L CO2 15 (L) 22 - 32 mmol/L Anion Gap 15 7 - 15 mmol/L Glucose 139 (H) 70 - 120 mg/dL Calcium 8.1 (L) 8.4 - 10.2 mg/dL PHOSPHORUS Result Value Ref Range Phosphorus 3.9 2.5 - 4.8 mg/dL MAGNESIUM Result Value Ref Range Magnesium 2.5 1.5 - 2.6 mg/dL BASIC METABOLIC PANEL Result Value Ref Range BUN 102 (H) 6 - 20 mg/dL Creatinine 2.2 (H) 0.5 - 1.0 mg/dL Estimated Glomerular Filtration Rate 25 (L) >=60 mL/min Sodium 135 135 - 146 mmol/L Potassium 4.5 3.5 - 5.1 mmol/L Chloride 106 98 - 107 mmol/L CO2 13 (L) 22 - 32 mmol/L Anion Gap 16 (H) 7 - 15 mmol/L Glucose 151 (H) 70 - 120 mg/dL Calcium 8.2 (L) 8.4 - 10.2 mg/dL PHOSPHORUS Result Value Ref Range Phosphorus 4.3 2.5 - 4.8 mg/dL MAGNESIUM Result Value Ref Range Magnesium 2.6 1.5 - 2.6 mg/dL TROPONIN T, HIGH SENSITIVITY Result Value Ref Range Troponin T, High Sensitivity 41 (H) <=14 ng/L PHOSPHORUS Result Value Ref Range Phosphorus 3.6 2.5 - 4.8 mg/dL MAGNESIUM Result Value Ref Range Magnesium 2.4 1.5 - 2.6 mg/dL RESPIRATORY PATHOGEN PANEL, PCR Result Value Ref Range Adenovirus by PCR Negative Negative Coronavirus 229E by PCR Negative Negative Coronavirus HKU1 by PCR Negative Negative Coronavirus NL63 by PCR Negative Negative Coronavirus OC43 by PCR Negative Negative Coronavirus SARS-CoV-2 by PCR Negative Negative Human Metapneumovirus by PCR Negative Negative Rhinovirus/Enterovirus by PCR Negative Negative Influenza A Virus by PCR Negative Negative Influenza B Virus by PCR Negative Negative Parainfluenza Virus 1 by PCR Negative Negative Parainfluenza Virus 2 by PCR Negative Negative Parainfluenza Virus 3 by PCR Negative Negative Parainfluenza Virus 4 by PCR Negative Negative Respiratory Syncytial Virus by PCR Negative Negative Bordetella pertussis by PCR Negative Negative Chlamydia pneumoniae by PCR Negative Negative Mycoplasma pneumoniae by PCR Negative Negative Bordetella parapertussis by PCR Negative Negative CULTURE, BLOOD Result Value Ref Range Blood Culture Growth No growth CULTURE, BLOOD Result Value Ref Range Blood Culture Growth No growth BASIC METABOLIC PANEL Result Value Ref Range BUN 92 (H) 6 - 20 mg/dL Creatinine 1.8 (H) 0.5 - 1.0 mg/dL Estimated Glomerular Filtration Rate 31 (L) >=60 mL/min Sodium 136 135 - 146 mmol/L Potassium 3.7 3.5 - 5.1 mmol/L Chloride 105 98 - 107 mmol/L CO2 15 (L) 22 - 32 mmol/L Anion Gap 16 (H) 7 - 15 mmol/L Glucose 171 (H) 70 - 120 mg/dL Calcium 8.3 (L) 8.4 - 10.2 mg/dL CBC Result Value Ref Range WBC 17.65 (H) 4.00 - 10.80 K/uL RBC 2.33 3.85 - 5.15 M/uL HGB 7.6 (L) 12.0 - 15.3 g/dL HCT 23.5 (L) 36.0 - 45.2 % MCV 100.9 81.5 - 97.5 fL MCH 32.6 27.0 - 34.0 pg MCHC 32.3 32.0 - 36.0 g/dL RDW 14.0 11.5 - 15.5 % PLT 297 140 - 400 K/uL MPV 11.8 6.6 - 11.1 fL nRBCs 0 <=0 /100 WBCs BLOOD GAS, ARTERIAL Result Value Ref Range Temperature 37.0 C pH, Arterial 7.343 (L) 7.350 - 7.450 units pCO2, Arterial 32.2 (L) 35.0 - 45.0 mmHg pO2, Arterial 80.2 75.0 - 100.0 mmHg Base Excess, Arterial -7.5 (L) -2.0 - 2.0 mmol/L HGB 7.1 (L) 12.0 - 15.3 g/dL Oxyhemoglobin, Arterial 90.0 (L) 94.0 - 99.0 % total Hgb Carboxyhemoglobin, Whole Blood 0.7 <=1.5 % total Hgb Methemoglobin, Whole Blood 2.7 (H) <=1.5 % total Hgb Reduced Hemoglobin, Arterial 6.6 (H) 0.0 - 5.0 % total Hgb O2 Content, Arterial 9.2 (L) 15.0 - 24.0 %vol FiO2 Not Provided % O2 Flow, Arterial 4 L/min Bicarbonate, Whole Blood 17.0 (L) 23.0 - 31.0 mmol/L LACTATE Result Value Ref Range Lactate 0.9 0.4 - 2.0 mmol/L CBC Result Value Ref Range WBC 17.02 (H) 4.00 - 10.80 K/uL RBC 2.27 3.85 - 5.15 M/uL HGB 7.2 (L) 12.0 - 15.3 g/dL HCT 23.0 (L) 36.0 - 45.2 % MCV 101.3 81.5 - 97.5 fL MCH 31.7 27.0 - 34.0 pg MCHC 31.3 32.0 - 36.0 g/dL RDW 14.2 11.5 - 15.5 % PLT 289 140 - 400 K/uL MPV 11.8 6.6 - 11.1 fL nRBCs 0 <=0 /100 WBCs TYPE AND SCREEN Result Value Ref Range ABO A Rh Positive Red Blood Cell Antibody Screen Negative Specimen Expiration Date 10/04/2023 23:59 PROCALCITONIN Result Value Ref Range Procalcitonin 0.40 (H) <0.10 ng/mL CBC Result Value Ref Range WBC 17.00 (H) 4.00 - 10.80 K/uL RBC 2.79 3.85 - 5.15 M/uL HGB 8.4 (L) 12.0 - 15.3 g/dL HCT 26.4 (L) 36.0 - 45.2 % MCV 94.6 81.5 - 97.5 fL MCH 30.1 27.0 - 34.0 pg MCHC 31.8 32.0 - 36.0 g/dL RDW 17.9 11.5 - 15.5 % PLT 274 140 - 400 K/uL MPV 11.7 6.6 - 11.1 fL nRBCs 0 <=0 /100 WBCs *Note: Due to a large number of results and/or encounters for the requested time period, some results have not been displayed. A complete set of results can be found in Results Review. IR LUMBAR PUNCTURE Final Result PROCEDURE: Diagnostic lumbar puncture . INDICATION: Workup for multiple sclerosis ATTENDING (OPERATING PHYSICIAN): Romana CONSENT: After a detailed discussion of the procedure, risks, benefits and alternative treatment options, informed consent was obtained. TIME OUT: A time out procedure was performed. The patient's identification was verified. Informed consent with agreement of procedure, site and position was obtained. All necessary equipment was available prior to procedure. CONTRAST: No contrast was administered. COMPLICATIONS: None. ANESTHESIA: Local lidocaine. MEDICATIONS: See MAR PROCEDURE DESCRIPTION: The lumbar area was prepped and draped in the usual sterile fashion. Using intermittent fluoroscopic guidance, attempts to access the L4-5 disc space failed. Using intermittent fluoroscopic guidance, the thecal sac was penetrated at the L5-S1 level with a 22 gauge 6 inch spinal needle with confirmation by immediate return of clear and colorless cerebrospinal fluid (CSF). Opening pressure measured mm CSF. CSF was collected in four tubes as labeled in consecutive order and sent to the lab for analysis. The needle was removed and the site was dressed. The procedure was performed by Dr. Avendano FINDINGS: Single spot image demonstrates the spinal needle at the L5-S1 level. Clear and colorless CSF was returned from the needle. IMPRESSION IMPRESSION: Successful fluoroscopic-guided diagnostic lumbar puncture PLAN: Follow-up of cerebrospinal fluid analysis and further management per primary team XR CHEST 1 VIEW Final Result PROCEDURE INFORMATION: Exam: XR Chest Exam date and time: 10/02/2023 5:42 PM Age: 58 years old Clinical indication: Other: SOB; Additional info: Lethargy, abnormal breathing pattern TECHNIQUE: Imaging protocol: Radiologic exam of the chest. Views: 1 view. COMPARISON: DX XR CHEST 1 VIEW 10/01/2023 11:06 PM FINDINGS: Tubes, catheters and devices: Left MediPort catheter is in stable position with the tip in the cavoatrial junction. Dumbbell-shaped device which likely represents a cystogastrostomy is seen in the left upper quadrant. Lungs: Redemonstration of stable diffuse ground-glass and interstitial opacities bilaterally greater on the right. Pleural spaces: Unremarkable. No pleural effusion. No pneumothorax. Heart/Mediastinum: Stable cardiomediastinal silhouette. Bones/joints: Degenerative changes with S-shaped scoliosis of the thoracic spine. Organs: Surgical clips in the right upper quadrant from prior cholecystectomy. IMPRESSION IMPRESSION: No change in the mixed airspace opacities bilaterally secondary to edema and/or pneumonia. THIS DOCUMENT HAS BEEN ELECTRONICALLY SIGNED BY DARIN VILLELA MD MRI T SPINE W WO CONTRAST Final Result EXAM: MRI T SPINE W WO CONTRAST HISTORY: Acute urinary retention, unsteady gait, concern for potential demyelinating disease TECHNIQUE: MRI of the thoracic spine was performed with and without intravenous Gadavist contrast COMPARISON: CT abdomen/pelvis 07/31/2023, MRI cervical spine 09/02/2023 FINDINGS: ALIGNMENT: Exaggeration of the midthoracic kyphosis. Severe dextroscoliosis centered at T7-T8 and levoscoliosis centered T12-L1. Stepwise right lateral listhesis of T10 on T11 and T11 on T12. BONES: Chronic anterior wedging of the T12 and L1 vertebral bodies with less than 50% total height loss. Mild chronic left lateral wedging of the T7 and T8 vertebral bodies and chronic right lateral wedging of the T11-L1 vertebral bodies. No aggressive appearing enhancing osseous lesions. DISCS: Multilevel disc desiccation and associated height loss. Asymmetric, chronic splaying of the right T6-T9 and left T10-L1 disc spaces. Scattered Schmorl's nodes throughout the thoracic spine. Modic 2 changes marginating the T12-L1 disc space. No abnormal intradiscal enhancement. SPINAL CORD: Extremely limited evaluation of the thoracic spinal cord due to extensive motion degradation. No obvious areas of abnormal enhancement, enhancement, or volume loss involving the thoracic spinal cord. Left lateral displacement of the upper/midthoracic cord related to scoliotic curvature of the spine. Grossly normal of the conus medullaris which terminates at around the level of T12-L1. No large epidural fluid collections. DISC LEVELS: Limited characterization of the individual disc levels due to motion degradation. Multilevel thoracic spondylosis with posterior disc bulges, facet arthrosis, and ligamentous thickening. No severe spinal canal stenosis appreciated. PARASPINAL SOFT TISSUES: Diffuse atrophy of the dorsal paraspinal musculature. Nondiagnostic evaluation of the upper abdominal contents. VISUALIZED INTRATHORACIC STRUCTURES: No lobar consolidations. IMPRESSION IMPRESSION: No obvious evidence of demyelinating disease involving the thoracic spinal cord, although evaluation is severely limited by motion degradation. If there is persistent concern for potential demyelinating disease, a repeat examination under sedation should be considered. Midthoracic dextroscoliosis and thoracolumbar levoscoliosis as described, associated with chronic multilevel vertebral body wedging and asymmetric disc space widening. Limited characterization of spondylitic changes at the individual disc levels. No evidence for severe thoracic spinal canal stenosis. XR CHEST 1 VIEW Final Result PROCEDURE INFORMATION: Exam: XR Chest Exam date and time: 10/01/2023 11:06 PM Age: 58 years old Clinical indication: Other: Worsening dyspnea TECHNIQUE: Imaging protocol: Radiologic exam of the chest. Views: 1 view. COMPARISON: DX XR CHEST 1 VIEW 10/01/2023 4:45 AM FINDINGS: Lungs: Persistent moderate vascular congestion/bilateral diffuse airspace disease. Left [id number]-[id number] catheter noted. Pleural spaces: No pleural effusion. No pneumothorax. Heart/Mediastinum: No cardiomegaly. Bones/joints: Degenerative changes with scoliosis. IMPRESSION IMPRESSION: Persistent moderate vascular congestion/bilateral diffuse airspace disease. THIS DOCUMENT HAS BEEN ELECTRONICALLY SIGNED BY HANDY HUIZAR MD XR CHEST 1 VIEW Final Result PROCEDURE INFORMATION: Exam: XR Chest Exam date and time: 10/01/2023 4:45 AM Age: 58 years old Clinical indication: Other: Hypoxia; Additional info: Hypoxia. Please have patient sitting upright for study and not lying flat. TECHNIQUE: Imaging protocol: Radiologic exam of the chest. Views: 1 view. COMPARISON: DX XR CHEST 1 VIEW 10/01/2023 12:02 AM FINDINGS: Tubes, catheters and devices: A catheter which may represent an abandoned catheter from a prior left anterior chest wall port is again seen, with tip projecting over the superior vena cava. Lungs: Stable moderate bilateral patchy ground-glass and interstitial opacities in the mid to upper lungs. Pleural spaces: No pneumothorax. Trace left pleural effusion. Heart/Mediastinum: Mild cardiomegaly. Bones/joints: Moderate rotatory scoliosis. No acute or suspicious osseous abnormalities. Gastrointestinal tract: Partially imaged prominent air-filled bowel loops. Other findings: Cholecystectomy clips. A dumbbell-shaped device which may represent a cystogastrostomy device projects over the epigastric region. IMPRESSION IMPRESSION: 1. Stable moderate bilateral patchy ground-glass and interstitial opacities in the mid to upper lungs. This may represent multifocal pneumonia in the appropriate clinical setting. 2. Trace left pleural effusion. THIS DOCUMENT HAS BEEN ELECTRONICALLY SIGNED BY VERNA GIBSON MD XR CHEST 1 VIEW Final Result PROCEDURE INFORMATION: Exam: XR Chest Exam date and time: 10/01/2023 12:02 AM Age: 58 years old Clinical indication: Other: Lower back pain that shoots up her back, o2 levels dropped; Additional info: Spo2 drop and new back pain TECHNIQUE: Imaging protocol: Radiologic exam of the chest. Views: 1 view. COMPARISON: DX XR CHEST 1 VIEW 09/20/2023 2:28 PM FINDINGS: Tubes, catheters and devices: There appears to be an abandoned left port catheter with tip extending to the cavoatrial junction. Lungs: There is multifocal parenchymal consolidation which is significantly increased from the comparison study and could reflect multifocal pneumonia, ARDS, or edema. Pleural spaces: No large effusion or pneumothorax. Heart/Mediastinum: No evidence of mediastinal widening or cardiac silhouette enlargement; the mediastinum and heart appear within normal limits for contour and size. Bones/joints: No evidence of acute osseous abnormalities within the visualized portions of the thoracic spine and ribs. Osseous structures appear appropriate for patient age. Gastrointestinal tract: There is mild gaseous distention of partially visualized bowel loops. IMPRESSION IMPRESSION: There is multifocal parenchymal consolidation which is significantly increased from the comparison study and could reflect multifocal pneumonia, ARDS, or edema. THIS DOCUMENT HAS BEEN ELECTRONICALLY SIGNED BY EFRAIN GILMAN MD US RENAL Final Result PROCEDURE INFORMATION: Exam: US Retroperitoneal; Complete; Kidneys and Bladder Exam date and time: 09/29/2023 3:29 PM Age: 58 years old Clinical indication: Abnormal findings; Abnormal lab test; Abnormal kidney function lab tests; Prior surgery; Surgery date: 6+ months; Surgery type: RT nephrectomy; Additional info: Robinson. HX nephrectomy TECHNIQUE: Imaging protocol: Real-time ultrasound of the retroperitoneum with image documentation. Complete exam focused on the kidneys and bladder. COMPARISON: US PELVIS TRANS-ABDOMINAL 09/27/2023 11:15 AM FINDINGS: Right kidney: Surgically absent. Left kidney: 10.9 x 4.1 x 4.9 cm. 4 mm calcification in the midportion with moderate hydronephrosis. Urinary bladder: Distended bladder with increased postvoid residue. Bladder diverticulum. IMPRESSION IMPRESSION: Left kidney demonstrates 4 mm calcification in the midportion with moderate hydronephrosis. THIS DOCUMENT HAS BEEN ELECTRONICALLY SIGNED BY URI MARTINEZ MD US PELVIS TRANS-ABDOMINAL Final Result PROCEDURE INFORMATION: Exam: US Nonobstetric Pelvis; Complete Exam date and time: 09/27/2023 11:15 AM Age: 58 years old Clinical indication: Abnormal findings; Abnormal imaging test; Additional info: Abnormal abd US TECHNIQUE: Imaging protocol: Transabdominal pelvic nonobstetric ultrasound. Complete exam. Real time ultrasound with image documentation. COMPARISON: US PELVIS TRANS-VAGINAL NON-OB 09/09/2020 8:48 AM FINDINGS: Uterus: Uterus is anteverted and measures 4.9 x 1.7 x 3.5 cm. Endometrial stripe is normal in thickness measuring 3.7 mm. Right ovary/adnexa: Not visualized. Left ovary/adnexa: Not visualized. Intraperitoneal space: No intraperitoneal fluid. Urinary bladder: Normal. IMPRESSION IMPRESSION: 1. Unremarkable appearance of the uterus and endometrium. 2. Nonvisualization of the ovaries. No adnexal masses. THIS DOCUMENT HAS BEEN ELECTRONICALLY SIGNED BY DARIN VILLELA MD XR ABDOMEN 1 VIEW Final Result PROCEDURE INFORMATION: Exam: XR Abdomen Exam date and time: 09/25/2023 9:00 AM Age: 58 years old Clinical indication: Other: Abd pain and tenderness pelvic area, bloating and constipation; Additional info: Abd pain and bloating TECHNIQUE: Imaging protocol: Radiologic exam of the abdomen. Views: Frontal supine view of the abdomen. 1 View. COMPARISON: CT ABDOMEN PELVIS WO(Adult) 07/31/2023 12:13 PM FINDINGS: Gastrointestinal tract: The stool and gas pattern is nonspecific. The stool and gas pattern is nonspecific. Intraperitoneal space: There is a stent identified in the left upper quadrant Organs: Surgical clips are seen from prior cholecystectomy. There is increased density over the pelvis. This may be due to the uterus. Gynecological follow-up is advised for assessment the endometrial stripe Vasculature: Vascular calcification is seen Bones/joints: There is a rotary scoliosis convex to the left within the spine Soft tissues: There surgical clips in the right inguinal region IMPRESSION IMPRESSION: Gynecological follow-up advised THIS DOCUMENT HAS BEEN ELECTRONICALLY SIGNED BY CARLOTTA ALEXANDER MD XR CHEST 1 VIEW Final Result PROCEDURE INFORMATION: Exam: XR Chest Exam date and time: 09/20/2023 2:28 PM Age: 58 years old Clinical indication: Other: General weakness; Additional info: Failure to thrive TECHNIQUE: Imaging protocol: Radiologic exam of the chest. Views: 1 view. COMPARISON: 1. DX XR CHEST 1 VIEW 12/11/2022 10:01 AM 2. Two-view chest x-ray 11/08/2022 FINDINGS: Tubes, catheters and devices: Left-sided central line, tip in the region of the cavoatrial junction, unchanged. Lungs: Persistent mild bronchial wall thickening. No developing focal infiltrate. Pleural spaces: No pleural effusion or pneumothorax. Heart/Mediastinum: Stable heart size. Bones/joints: Severe scoliosis thoracolumbar spine. Intraperitoneal space: Right upper quadrant clips. IMPRESSION IMPRESSION: 1. No acute cardiopulmonary disease. 2. Possible mild bronchitis. THIS DOCUMENT HAS BEEN ELECTRONICALLY SIGNED BY TERESA PATEL MD Assessment and Plan IMPRESSION : Principal Problem: Failure to thrive in adult Active Problems: Anemia Intestinal postoperative nonabsorption Chronic pain syndrome Hereditary and idiopathic peripheral neuropathy Cachexia (HCC) On total parenteral nutrition (TPN) MDD (major depressive disorder), recurrent episode, moderate (HCC) Bipolar disorder (HCC) Tobacco abuse Fall at home Generalized weakness Adjustment disorder ROBINSON (acute kidney injury) (HCC) Acute urinary retention Hypoxia Multifocal pneumonia Acute hypoxic respiratory failure (HCC) Mixed incontinence Retention of urine Acute pain of right shoulder Resolved Problems: * No resolved hospital problems. * I have examined the patient and consistent with the dietitian's findings found malnutrition presentof Severe (09/21/23 1019) degree. This is consistent with such due to Fat loss;Muscle loss;Inadequate energy intake;Weight loss (09/21/23 1019). I have also reviewed and agree with the dietitian's plan of care which include Nutrition support monitoring;Oral nutritional supplement ordered/adjusted (10/05/23 1412). DIFFERENTIAL AND PLAN: - s/p LP on 10/04 to evaluate for MS. MS labs pending - appreciate Neurology input -appreciate nutrition input. Continue TPN - Continue supplemental oxygen. Wean as able. Ambulatory pulse ox prior to discharge. Currently on 6 L nasal cannula - completed course of antibiotics for possible multifocal pneumonia. - continue ferrous sulfate for iron-deficiency - nicotine patch - BMP and CBC reviewed. Currently stable. - vitamin B1 pending - lidocaine patch for right shoulder pain - PT/OT - care management. 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 CODE STATUS: No Code EXPECTED DISCHARGE DATE: 10/09/2023 I spent a total of 38 minutes coordinating, documenting, and providing care for this patient excluding time spent in the performance of separately billed services. * Juan Zaragoza DO - 10/05/2023 2:43 PM EDT Images from the original note were not included. [facility] [id number] INTERVAL HISTORY: 58-year-old female admitted on 09/19 for failure to thrive while on TPN. MRI T-spine with no obvious evidence of demyelinating disease involving the thoracic spine. Subjective: Patient evaluated at bedside. Still requiring supplemental oxygen. Does not use home oxygen. Complaining of migraine headache 9/10 as well as right shoulder pain. Objective Physical Exam Most Recent Vital Signs: BP: 89 mmHg/54 mmHg (10/05/23 1051) Pulse: 81 (10/05/23 1051) Temp: 36.11 C (10/05/23 105) Temp Summary: Temp Min: 36.1 C (97 F) Max: 36.6 C (97.9 F) SpO2: 95 % (10/05/23 105) O2 flow rate: 9 L/MIN (10/05/23 105) Supplemental O2 Delivery: Nasal Cannula (10/05/23 105) Constitutional: no acute distress Neck: supple, normal range of motion CV: normal rate and rhythm, no murmur, gallops or rub Chest: normal respiratory effort, (+) decreased breath sounds bilaterally Abdomen: normal: soft, bowel sounds normal, no masses, tenderness or organomegaly Extremities: no clubbing, cyanosis, or edema, otherwise grossly normal, warm, and dry Skin: warm, dry, intact: Neuro: alert, oriented to person, place, and time Urethral Catheter Regular catheter (Active) Number of days: 5 Tunneled Central Cath Double Lumen Left Chest (Active) Number of days: 300 STUDIES: Encounter Orders Labs and other studies reviewed with pertinent findings noted below: Results for orders placed or performed during the hospital encounter of 09/20/23 SARS-COV-2 (COVID-19), NAAT Result Value Ref Range SARS-CoV-2 (COVID-19) Result Negative Negative BASIC METABOLIC PANEL Result Value Ref Range BUN 37 (H) 6 - 20 mg/dL Creatinine 1.2 (H) 0.5 - 1.0 mg/dL Estimated Glomerular Filtration Rate 52 (L) >=60 mL/min Sodium 136 135 - 146 mmol/L Potassium 5.5 (H) 3.5 - 5.1 mmol/L Chloride 111 (H) 98 - 107 mmol/L CO2 13 (L) 22 - 32 mmol/L Anion Gap 12 7 - 15 mmol/L Glucose 99 70 - 120 mg/dL Calcium 8.1 (L) 8.4 - 10.2 mg/dL CALCIUM, IONIZED Result Value Ref Range Calcium, Ionized 1.34 (H) 1.13 - 1.32 mmol/L PHOSPHORUS Result Value Ref Range Phosphorus 5.0 (H) 2.5 - 4.8 mg/dL MAGNESIUM Result Value Ref Range Magnesium 1.9 1.5 - 2.6 mg/dL CBC Result Value Ref Range WBC 5.66 4.00 - 10.80 K/uL RBC 2.88 3.85 - 5.15 M/uL HGB 9.3 (L) 12.0 - 15.3 g/dL HCT 29.8 (L) 36.0 - 45.2 % MCV 103.5 81.5 - 97.5 fL MCH 32.3 27.0 - 34.0 pg MCHC 31.2 32.0 - 36.0 g/dL RDW 14.8 11.5 - 15.5 % PLT 330 140 - 400 K/uL MPV 11.1 6.6 - 11.1 fL nRBCs 0 <=0 /100 WBCs BASIC METABOLIC PANEL Result Value Ref Range BUN 39 (H) 6 - 20 mg/dL Creatinine 1.1 (H) 0.5 - 1.0 mg/dL Estimated Glomerular Filtration Rate 57 (L) >=60 mL/min Sodium 135 135 - 146 mmol/L Potassium 5.1 3.5 - 5.1 mmol/L Chloride 112 (H) 98 - 107 mmol/L CO2 16 (L) 22 - 32 mmol/L Anion Gap 7 7 - 15 mmol/L Glucose 88 70 - 120 mg/dL Calcium 8.2 (L) 8.4 - 10.2 mg/dL PHOSPHORUS Result Value Ref Range Phosphorus 3.2 2.5 - 4.8 mg/dL MAGNESIUM Result Value Ref Range Magnesium 1.9 1.5 - 2.6 mg/dL VITAMIN A (RETINOL) Result Value Ref Range Vitamin A (Retinol) 51 38 - 98 mcg/dL 25-HYDROXY VITAMIN D Result Value Ref Range 25-Hydroxy Vitamin D 9 (L) >19 ng/mL VITAMIN E (TOCOPHEROL) Result Value Ref Range Alpha-Tocopherol 4.6 (L) 5.7 - 19.9 mg/L [id number]-Urrswoohtn 2.6 <=4.3 mg/L VITAMIN K Result Value Ref Range Vitamin K >2500 (H) 130 - 1500 pg/mL VITAMIN B1 (THIAMINE), BLOOD, LC/MS/MS Result Value Ref Range Vitamin B1 (Thiamine),B 250 (H) 78 - 185 nmol/L FOLIC ACID Result Value Ref Range Folic Acid 8.2 >4.5 ng/mL VITAMIN B12 Result Value Ref Range Vitamin B12 398 232 - 1,245 pg/mL METHYLMALONIC ACID, SERUM Result Value Ref Range Methylmalonic Acid 2045 (H) 87 - 318 nmol/L COPPER, SERUM OR PLASMA Result Value Ref Range Copper 85 70 - 175 mcg/dL ZINC Result Value Ref Range Zinc 38 (L) 60 - 130 mcg/dL IRON SCREEN, INCLUDING TIBC Result Value Ref Range Iron 39 33 - 151 ug/dL Iron Binding Capacity 258 250 - 425 ug/dL Transferrin Saturation Percent 15 15 - 55 % FERRITIN Result Value Ref Range Ferritin 16 13 - 150 ng/mL BASIC METABOLIC PANEL Result Value Ref Range BUN 45 (H) 6 - 20 mg/dL Creatinine 1.1 (H) 0.5 - 1.0 mg/dL Estimated Glomerular Filtration Rate 58 (L) >=60 mL/min Sodium 134 (L) 135 - 146 mmol/L Potassium 5.7 (H) 3.5 - 5.1 mmol/L Chloride 107 98 - 107 mmol/L CO2 16 (L) 22 - 32 mmol/L Anion Gap 11 7 - 15 mmol/L Glucose 150 (H) 70 - 120 mg/dL Calcium 8.5 8.4 - 10.2 mg/dL PHOSPHORUS Result Value Ref Range Phosphorus 3.9 2.5 - 4.8 mg/dL MAGNESIUM Result Value Ref Range Magnesium 2.0 1.5 - 2.6 mg/dL BASIC METABOLIC PANEL Result Value Ref Range BUN 47 (H) 6 - 20 mg/dL Creatinine 1.0 0.5 - 1.0 mg/dL Estimated Glomerular Filtration Rate 63 >=60 mL/min Sodium 136 135 - 146 mmol/L Potassium 4.4 3.5 - 5.1 mmol/L Chloride 110 (H) 98 - 107 mmol/L CO2 17 (L) 22 - 32 mmol/L Anion Gap 9 7 - 15 mmol/L Glucose 95 70 - 120 mg/dL Calcium 7.8 (L) 8.4 - 10.2 mg/dL PHOSPHORUS Result Value Ref Range Phosphorus 4.2 2.5 - 4.8 mg/dL MAGNESIUM Result Value Ref Range Magnesium 2.0 1.5 - 2.6 mg/dL URINALYSIS, REFLEX TO MICROSCOPIC Result Value Ref Range Color, Urine Yellow Light Yellow, Yellow, Dark Yellow Clarity, Urine Clear Clear Glucose, Urine Negative Negative mg/dL Bilirubin, Urine Negative Negative Ketone, Urine Negative Negative mg/dL Specific [place], Urine 1.015 1.003 - 1.030 Blood, Urine Negative Negative pH, Urine 6.0 5.0 - 7.5 Units Protein, Urine Negative Negative mg/dL Urobilinogen, Urine 0.2 0.2, 1.0 mg/dL Nitrite, Urine Negative Negative Esterase, Urine Negative Negative Comment, Urine BASIC METABOLIC PANEL Result Value Ref Range BUN 66 (H) 6 - 20 mg/dL Creatinine 1.2 (H) 0.5 - 1.0 mg/dL Estimated Glomerular Filtration Rate 50 (L) >=60 mL/min Sodium 139 135 - 146 mmol/L Potassium 4.5 3.5 - 5.1 mmol/L Chloride 110 (H) 98 - 107 mmol/L CO2 16 (L) 22 - 32 mmol/L Anion Gap 13 7 - 15 mmol/L Glucose 116 70 - 120 mg/dL Calcium 8.6 8.4 - 10.2 mg/dL PHOSPHORUS Result Value Ref Range Phosphorus 4.6 2.5 - 4.8 mg/dL MAGNESIUM Result Value Ref Range Magnesium 2.3 1.5 - 2.6 mg/dL BASIC METABOLIC PANEL Result Value Ref Range BUN 82 (H) 6 - 20 mg/dL Creatinine 1.5 (H) 0.5 - 1.0 mg/dL Estimated Glomerular Filtration Rate 39 (L) >=60 mL/min Sodium 137 135 - 146 mmol/L Potassium 4.5 3.5 - 5.1 mmol/L Chloride 107 98 - 107 mmol/L CO2 15 (L) 22 - 32 mmol/L Anion Gap 15 7 - 15 mmol/L Glucose 96 70 - 120 mg/dL Calcium 8.3 (L) 8.4 - 10.2 mg/dL PHOSPHORUS Result Value Ref Range Phosphorus 5.4 (H) 2.5 - 4.8 mg/dL MAGNESIUM Result Value Ref Range Magnesium 2.5 1.5 - 2.6 mg/dL BASIC METABOLIC PANEL Result Value Ref Range BUN 83 (H) 6 - 20 mg/dL Creatinine 1.6 (H) 0.5 - 1.0 mg/dL Estimated Glomerular Filtration Rate 38 (L) >=60 mL/min Sodium 134 (L) 135 - 146 mmol/L Potassium 4.5 3.5 - 5.1 mmol/L Chloride 106 98 - 107 mmol/L CO2 15 (L) 22 - 32 mmol/L Anion Gap 13 7 - 15 mmol/L Glucose 118 70 - 120 mg/dL Calcium 8.5 8.4 - 10.2 mg/dL PHOSPHORUS Result Value Ref Range Phosphorus 4.3 2.5 - 4.8 mg/dL MAGNESIUM Result Value Ref Range Magnesium 2.5 1.5 - 2.6 mg/dL HEPATIC FUNCTION PANEL Result Value Ref Range Albumin 3.0 (L) 3.8 - 5.0 g/dL AST 22 10 - 35 U/L Alkaline Phosphatase 112 35 - 130 U/L ALT 30 10 - 35 U/L Bilirubin, Total <0.2 <=1.2 mg/dL Bilirubin, Direct <0.2 0.0 - 0.3 mg/dL Protein 5.8 (L) 6.0 - 8.3 g/dL TRIGLYCERIDES Result Value Ref Range Triglycerides 101 <=174 mg/dL CALCIUM, IONIZED Result Value Ref Range Calcium, Ionized 1.27 1.13 - 1.32 mmol/L BASIC METABOLIC PANEL Result Value Ref Range BUN 83 (H) 6 - 20 mg/dL Creatinine 1.6 (H) 0.5 - 1.0 mg/dL Estimated Glomerular Filtration Rate 37 (L) >=60 mL/min Sodium 136 135 - 146 mmol/L Potassium 4.7 3.5 - 5.1 mmol/L Chloride 107 98 - 107 mmol/L CO2 16 (L) 22 - 32 mmol/L Anion Gap 13 7 - 15 mmol/L Glucose 118 70 - 120 mg/dL Calcium 8.4 8.4 - 10.2 mg/dL PHOSPHORUS Result Value Ref Range Phosphorus 4.3 2.5 - 4.8 mg/dL MAGNESIUM Result Value Ref Range Magnesium 2.6 1.5 - 2.6 mg/dL BASIC METABOLIC PANEL Result Value Ref Range BUN 91 (H) 6 - 20 mg/dL Creatinine 1.9 (H) 0.5 - 1.0 mg/dL Estimated Glomerular Filtration Rate 29 (L) >=60 mL/min Sodium 136 135 - 146 mmol/L Potassium 4.8 3.5 - 5.1 mmol/L Chloride 106 98 - 107 mmol/L CO2 15 (L) 22 - 32 mmol/L Anion Gap 15 7 - 15 mmol/L Glucose 139 (H) 70 - 120 mg/dL Calcium 8.1 (L) 8.4 - 10.2 mg/dL PHOSPHORUS Result Value Ref Range Phosphorus 3.9 2.5 - 4.8 mg/dL MAGNESIUM Result Value Ref Range Magnesium 2.5 1.5 - 2.6 mg/dL BASIC METABOLIC PANEL Result Value Ref Range BUN 102 (H) 6 - 20 mg/dL Creatinine 2.2 (H) 0.5 - 1.0 mg/dL Estimated Glomerular Filtration Rate 25 (L) >=60 mL/min Sodium 135 135 - 146 mmol/L Potassium 4.5 3.5 - 5.1 mmol/L Chloride 106 98 - 107 mmol/L CO2 13 (L) 22 - 32 mmol/L Anion Gap 16 (H) 7 - 15 mmol/L Glucose 151 (H) 70 - 120 mg/dL Calcium 8.2 (L) 8.4 - 10.2 mg/dL PHOSPHORUS Result Value Ref Range Phosphorus 4.3 2.5 - 4.8 mg/dL MAGNESIUM Result Value Ref Range Magnesium 2.6 1.5 - 2.6 mg/dL TROPONIN T, HIGH SENSITIVITY Result Value Ref Range Troponin T, High Sensitivity 41 (H) <=14 ng/L PHOSPHORUS Result Value Ref Range Phosphorus 3.6 2.5 - 4.8 mg/dL MAGNESIUM Result Value Ref Range Magnesium 2.4 1.5 - 2.6 mg/dL RESPIRATORY PATHOGEN PANEL, PCR Result Value Ref Range Adenovirus by PCR Negative Negative Coronavirus 229E by PCR Negative Negative Coronavirus HKU1 by PCR Negative Negative Coronavirus NL63 by PCR Negative Negative Coronavirus OC43 by PCR Negative Negative Coronavirus SARS-CoV-2 by PCR Negative Negative Human Metapneumovirus by PCR Negative Negative Rhinovirus/Enterovirus by PCR Negative Negative Influenza A Virus by PCR Negative Negative Influenza B Virus by PCR Negative Negative Parainfluenza Virus 1 by PCR Negative Negative Parainfluenza Virus 2 by PCR Negative Negative Parainfluenza Virus 3 by PCR Negative Negative Parainfluenza Virus 4 by PCR Negative Negative Respiratory Syncytial Virus by PCR Negative Negative Bordetella pertussis by PCR Negative Negative Chlamydia pneumoniae by PCR Negative Negative Mycoplasma pneumoniae by PCR Negative Negative Bordetella parapertussis by PCR Negative Negative CULTURE, BLOOD Result Value Ref Range Blood Culture Growth No growth to date CULTURE, BLOOD Result Value Ref Range Blood Culture Growth No growth to date BASIC METABOLIC PANEL Result Value Ref Range BUN 92 (H) 6 - 20 mg/dL Creatinine 1.8 (H) 0.5 - 1.0 mg/dL Estimated Glomerular Filtration Rate 31 (L) >=60 mL/min Sodium 136 135 - 146 mmol/L Potassium 3.7 3.5 - 5.1 mmol/L Chloride 105 98 - 107 mmol/L CO2 15 (L) 22 - 32 mmol/L Anion Gap 16 (H) 7 - 15 mmol/L Glucose 171 (H) 70 - 120 mg/dL Calcium 8.3 (L) 8.4 - 10.2 mg/dL CBC Result Value Ref Range WBC 17.65 (H) 4.00 - 10.80 K/uL RBC 2.33 3.85 - 5.15 M/uL HGB 7.6 (L) 12.0 - 15.3 g/dL HCT 23.5 (L) 36.0 - 45.2 % MCV 100.9 81.5 - 97.5 fL MCH 32.6 27.0 - 34.0 pg MCHC 32.3 32.0 - 36.0 g/dL RDW 14.0 11.5 - 15.5 % PLT 297 140 - 400 K/uL MPV 11.8 6.6 - 11.1 fL nRBCs 0 <=0 /100 WBCs BLOOD GAS, ARTERIAL Result Value Ref Range Temperature 37.0 C pH, Arterial 7.343 (L) 7.350 - 7.450 units pCO2, Arterial 32.2 (L) 35.0 - 45.0 mmHg pO2, Arterial 80.2 75.0 - 100.0 mmHg Base Excess, Arterial -7.5 (L) -2.0 - 2.0 mmol/L HGB 7.1 (L) 12.0 - 15.3 g/dL Oxyhemoglobin, Arterial 90.0 (L) 94.0 - 99.0 % total Hgb Carboxyhemoglobin, Whole Blood 0.7 <=1.5 % total Hgb Methemoglobin, Whole Blood 2.7 (H) <=1.5 % total Hgb Reduced Hemoglobin, Arterial 6.6 (H) 0.0 - 5.0 % total Hgb O2 Content, Arterial 9.2 (L) 15.0 - 24.0 %vol FiO2 Not Provided % O2 Flow, Arterial 4 L/min Bicarbonate, Whole Blood 17.0 (L) 23.0 - 31.0 mmol/L LACTATE Result Value Ref Range Lactate 0.9 0.4 - 2.0 mmol/L CBC Result Value Ref Range WBC 17.02 (H) 4.00 - 10.80 K/uL RBC 2.27 3.85 - 5.15 M/uL HGB 7.2 (L) 12.0 - 15.3 g/dL HCT 23.0 (L) 36.0 - 45.2 % MCV 101.3 81.5 - 97.5 fL MCH 31.7 27.0 - 34.0 pg MCHC 31.3 32.0 - 36.0 g/dL RDW 14.2 11.5 - 15.5 % PLT 289 140 - 400 K/uL MPV 11.8 6.6 - 11.1 fL nRBCs 0 <=0 /100 WBCs TYPE AND SCREEN Result Value Ref Range ABO A Rh Positive Red Blood Cell Antibody Screen Negative Specimen Expiration Date 10/04/2023 23:59 PROCALCITONIN Result Value Ref Range Procalcitonin 0.40 (H) <0.10 ng/mL CBC Result Value Ref Range WBC 17.00 (H) 4.00 - 10.80 K/uL RBC 2.79 3.85 - 5.15 M/uL HGB 8.4 (L) 12.0 - 15.3 g/dL HCT 26.4 (L) 36.0 - 45.2 % MCV 94.6 81.5 - 97.5 fL MCH 30.1 27.0 - 34.0 pg MCHC 31.8 32.0 - 36.0 g/dL RDW 17.9 11.5 - 15.5 % PLT 274 140 - 400 K/uL MPV 11.7 6.6 - 11.1 fL nRBCs 0 <=0 /100 WBCs *Note: Due to a large number of results and/or encounters for the requested time period, some results have not been displayed. A complete set of results can be found in Results Review. XR CHEST 1 VIEW Final Result PROCEDURE INFORMATION: Exam: XR Chest Exam date and time: 10/02/2023 5:42 PM Age: 58 years old Clinical indication: Other: SOB; Additional info: Lethargy, abnormal breathing pattern TECHNIQUE: Imaging protocol: Radiologic exam of the chest. Views: 1 view. COMPARISON: DX XR CHEST 1 VIEW 10/01/2023 11:06 PM FINDINGS: Tubes, catheters and devices: Left MediPort catheter is in stable position with the tip in the cavoatrial junction. Dumbbell-shaped device which likely represents a cystogastrostomy is seen in the left upper quadrant. Lungs: Redemonstration of stable diffuse ground-glass and interstitial opacities bilaterally greater on the right. Pleural spaces: Unremarkable. No pleural effusion. No pneumothorax. Heart/Mediastinum: Stable cardiomediastinal silhouette. Bones/joints: Degenerative changes with S-shaped scoliosis of the thoracic spine. Organs: Surgical clips in the right upper quadrant from prior cholecystectomy. IMPRESSION IMPRESSION: No change in the mixed airspace opacities bilaterally secondary to edema and/or pneumonia. THIS DOCUMENT HAS BEEN ELECTRONICALLY SIGNED BY DARIN VILLELA MD MRI T SPINE W WO CONTRAST Final Result EXAM: MRI T SPINE W WO CONTRAST HISTORY: Acute urinary retention, unsteady gait, concern for potential demyelinating disease TECHNIQUE: MRI of the thoracic spine was performed with and without intravenous Gadavist contrast COMPARISON: CT abdomen/pelvis 07/31/2023, MRI cervical spine 09/02/2023 FINDINGS: ALIGNMENT: Exaggeration of the midthoracic kyphosis. Severe dextroscoliosis centered at T7-T8 and levoscoliosis centered T12-L1. Stepwise right lateral listhesis of T10 on T11 and T11 on T12. BONES: Chronic anterior wedging of the T12 and L1 vertebral bodies with less than 50% total height loss. Mild chronic left lateral wedging of the T7 and T8 vertebral bodies and chronic right lateral wedging of the T11-L1 vertebral bodies. No aggressive appearing enhancing osseous lesions. DISCS: Multilevel disc desiccation and associated height loss. Asymmetric, chronic splaying of the right T6-T9 and left T10-L1 disc spaces. Scattered Schmorl's nodes throughout the thoracic spine. Modic 2 changes marginating the T12-L1 disc space. No abnormal intradiscal enhancement. SPINAL CORD: Extremely limited evaluation of the thoracic spinal cord due to extensive motion degradation. No obvious areas of abnormal enhancement, enhancement, or volume loss involving the thoracic spinal cord. Left lateral displacement of the upper/midthoracic cord related to scoliotic curvature of the spine. Grossly normal of the conus medullaris which terminates at around the level of T12-L1. No large epidural fluid collections. DISC LEVELS: Limited characterization of the individual disc levels due to motion degradation. Multilevel thoracic spondylosis with posterior disc bulges, facet arthrosis, and ligamentous thickening. No severe spinal canal stenosis appreciated. PARASPINAL SOFT TISSUES: Diffuse atrophy of the dorsal paraspinal musculature. Nondiagnostic evaluation of the upper abdominal contents. VISUALIZED INTRATHORACIC STRUCTURES: No lobar consolidations. IMPRESSION IMPRESSION: No obvious evidence of demyelinating disease involving the thoracic spinal cord, although evaluation is severely limited by motion degradation. If there is persistent concern for potential demyelinating disease, a repeat examination under sedation should be considered. Midthoracic dextroscoliosis and thoracolumbar levoscoliosis as described, associated with chronic multilevel vertebral body wedging and asymmetric disc space widening. Limited characterization of spondylitic changes at the individual disc levels. No evidence for severe thoracic spinal canal stenosis. XR CHEST 1 VIEW Final Result PROCEDURE INFORMATION: Exam: XR Chest Exam date and time: 10/01/2023 11:06 PM Age: 58 years old Clinical indication: Other: Worsening dyspnea TECHNIQUE: Imaging protocol: Radiologic exam of the chest. Views: 1 view. COMPARISON: DX XR CHEST 1 VIEW 10/01/2023 4:45 AM FINDINGS: Lungs: Persistent moderate vascular congestion/bilateral diffuse airspace disease. Left Onnowj-T-Xsnq catheter noted. Pleural spaces: No pleural effusion. No pneumothorax. Heart/Mediastinum: No cardiomegaly. Bones/joints: Degenerative changes with scoliosis. IMPRESSION IMPRESSION: Persistent moderate vascular congestion/bilateral diffuse airspace disease. THIS DOCUMENT HAS BEEN ELECTRONICALLY SIGNED BY HANDY HUIZAR MD XR CHEST 1 VIEW Final Result PROCEDURE INFORMATION: Exam: XR Chest Exam date and time: 10/01/2023 4:45 AM Age: 58 years old Clinical indication: Other: Hypoxia; Additional info: Hypoxia. Please have patient sitting upright for study and not lying flat. TECHNIQUE: Imaging protocol: Radiologic exam of the chest. Views: 1 view. COMPARISON: DX XR CHEST 1 VIEW 10/01/2023 12:02 AM FINDINGS: Tubes, catheters and devices: A catheter which may represent an abandoned catheter from a prior left anterior chest wall port is again seen, with tip projecting over the superior vena cava. Lungs: Stable moderate bilateral patchy ground-glass and interstitial opacities in the mid to upper lungs. Pleural spaces: No pneumothorax. Trace left pleural effusion. Heart/Mediastinum: Mild cardiomegaly. Bones/joints: Moderate rotatory scoliosis. No acute or suspicious osseous abnormalities. Gastrointestinal tract: Partially imaged prominent air-filled bowel loops. Other findings: Cholecystectomy clips. A dumbbell-shaped device which may represent a cystogastrostomy device projects over the epigastric region. IMPRESSION IMPRESSION: 1. Stable moderate bilateral patchy ground-glass and interstitial opacities in the mid to upper lungs. This may represent multifocal pneumonia in the appropriate clinical setting. 2. Trace left pleural effusion. THIS DOCUMENT HAS BEEN ELECTRONICALLY SIGNED BY VERNA GIBSON MD XR CHEST 1 VIEW Final Result PROCEDURE INFORMATION: Exam: XR Chest Exam date and time: 10/01/2023 12:02 AM Age: 58 years old Clinical indication: Other: Lower back pain that shoots up her back, o2 levels dropped; Additional info: Spo2 drop and new back pain TECHNIQUE: Imaging protocol: Radiologic exam of the chest. Views: 1 view. COMPARISON: DX XR CHEST 1 VIEW 09/20/2023 2:28 PM FINDINGS: Tubes, catheters and devices: There appears to be an abandoned left port catheter with tip extending to the cavoatrial junction. Lungs: There is multifocal parenchymal consolidation which is significantly increased from the comparison study and could reflect multifocal pneumonia, ARDS, or edema. Pleural spaces: No large effusion or pneumothorax. Heart/Mediastinum: No evidence of mediastinal widening or cardiac silhouette enlargement; the mediastinum and heart appear within normal limits for contour and size. Bones/joints: No evidence of acute osseous abnormalities within the visualized portions of the thoracic spine and ribs. Osseous structures appear appropriate for patient age. Gastrointestinal tract: There is mild gaseous distention of partially visualized bowel loops. IMPRESSION IMPRESSION: There is multifocal parenchymal consolidation which is significantly increased from the comparison study and could reflect multifocal pneumonia, ARDS, or edema. THIS DOCUMENT HAS BEEN ELECTRONICALLY SIGNED BY EFRAIN GILMAN MD US RENAL Final Result PROCEDURE INFORMATION: Exam: US Retroperitoneal; Complete; Kidneys and Bladder Exam date and time: 09/29/2023 3:29 PM Age: 58 years old Clinical indication: Abnormal findings; Abnormal lab test; Abnormal kidney function lab tests; Prior surgery; Surgery date: 6+ months; Surgery type: RT nephrectomy; Additional info: Robinson. HX nephrectomy TECHNIQUE: Imaging protocol: Real-time ultrasound of the retroperitoneum with image documentation. Complete exam focused on the kidneys and bladder. COMPARISON: US PELVIS TRANS-ABDOMINAL 09/27/2023 11:15 AM FINDINGS: Right kidney: Surgically absent. Left kidney: 10.9 x 4.1 x 4.9 cm. 4 mm calcification in the midportion with moderate hydronephrosis. Urinary bladder: Distended bladder with increased postvoid residue. Bladder diverticulum. IMPRESSION IMPRESSION: Left kidney demonstrates 4 mm calcification in the midportion with moderate hydronephrosis. THIS DOCUMENT HAS BEEN ELECTRONICALLY SIGNED BY RUI MARTINEZ MD US PELVIS TRANS-ABDOMINAL Final Result PROCEDURE INFORMATION: Exam: US Nonobstetric Pelvis; Complete Exam date and time: 09/27/2023 11:15 AM Age: 58 years old Clinical indication: Abnormal findings; Abnormal imaging test; Additional info: Abnormal abd US TECHNIQUE: Imaging protocol: Transabdominal pelvic nonobstetric ultrasound. Complete exam. Real time ultrasound with image documentation. COMPARISON: US PELVIS TRANS-VAGINAL NON-OB 09/09/2020 8:48 AM FINDINGS: Uterus: Uterus is anteverted and measures 4.9 x 1.7 x 3.5 cm. Endometrial stripe is normal in thickness measuring 3.7 mm. Right ovary/adnexa: Not visualized. Left ovary/adnexa: Not visualized. Intraperitoneal space: No intraperitoneal fluid. Urinary bladder: Normal. IMPRESSION IMPRESSION: 1. Unremarkable appearance of the uterus and endometrium. 2. Nonvisualization of the ovaries. No adnexal masses. THIS DOCUMENT HAS BEEN ELECTRONICALLY SIGNED BY DAIRN VILLELA MD XR ABDOMEN 1 VIEW Final Result PROCEDURE INFORMATION: Exam: XR Abdomen Exam date and time: 09/25/2023 9:00 AM Age: 58 years old Clinical indication: Other: Abd pain and tenderness pelvic area, bloating and constipation; Additional info: Abd pain and bloating TECHNIQUE: Imaging protocol: Radiologic exam of the abdomen. Views: Frontal supine view of the abdomen. 1 View. COMPARISON: CT ABDOMEN PELVIS WO(Adult) 07/31/2023 12:13 PM FINDINGS: Gastrointestinal tract: The stool and gas pattern is nonspecific. The stool and gas pattern is nonspecific. Intraperitoneal space: There is a stent identified in the left upper quadrant Organs: Surgical clips are seen from prior cholecystectomy. There is increased density over the pelvis. This may be due to the uterus. Gynecological follow-up is advised for assessment the endometrial stripe Vasculature: Vascular calcification is seen Bones/joints: There is a rotary scoliosis convex to the left within the spine Soft tissues: There surgical clips in the right inguinal region IMPRESSION IMPRESSION: Gynecological follow-up advised THIS DOCUMENT HAS BEEN ELECTRONICALLY SIGNED BY CARLOTTA ALEXANDER MD XR CHEST 1 VIEW Final Result PROCEDURE INFORMATION: Exam: XR Chest Exam date and time: 09/20/2023 2:28 PM Age: 58 years old Clinical indication: Other: General weakness; Additional info: Failure to thrive TECHNIQUE: Imaging protocol: Radiologic exam of the chest. Views: 1 view. COMPARISON: 1. DX XR CHEST 1 VIEW 12/11/2022 10:01 AM 2. Two-view chest x-ray 11/08/2022 FINDINGS: Tubes, catheters and devices: Left-sided central line, tip in the region of the cavoatrial junction, unchanged. Lungs: Persistent mild bronchial wall thickening. No developing focal infiltrate. Pleural spaces: No pleural effusion or pneumothorax. Heart/Mediastinum: Stable heart size. Bones/joints: Severe scoliosis thoracolumbar spine. Intraperitoneal space: Right upper quadrant clips. IMPRESSION IMPRESSION: 1. No acute cardiopulmonary disease. 2. Possible mild bronchitis. THIS DOCUMENT HAS BEEN ELECTRONICALLY SIGNED BY TERESA PATEL MD IR LUMBAR PUNCTURE (Results Pending) Assessment and Plan IMPRESSION : Principal Problem: Failure to thrive in adult Active Problems: Anemia Intestinal postoperative nonabsorption Chronic pain syndrome Hereditary and idiopathic peripheral neuropathy Cachexia (HCC) On total parenteral nutrition (TPN) MDD (major depressive disorder), recurrent episode, moderate (HCC) Bipolar disorder (HCC) Tobacco abuse Fall at home Generalized weakness Adjustment disorder ROBINSON (acute kidney injury) (HCC) Acute urinary retention Hypoxia Multifocal pneumonia Acute hypoxic respiratory failure (HCC) Mixed incontinence Retention of urine Resolved Problems: * No resolved hospital problems. * I have examined the patient and consistent with the dietitian's findings found malnutrition presentof Severe (09/21/23 1019) degree. This is consistent with such due to Fat loss;Muscle loss;Inadequate energy intake;Weight loss (09/21/23 1019). I have also reviewed and agree with the dietitian's plan of care which include Nutrition support monitoring;Oral nutritional supplement ordered/adjusted (10/05/23 1412). DIFFERENTIAL AND PLAN: - patient's undergo LP today to evaluate for MS. MS labs pending - appreciate Neurology input -appreciate nutrition input. Continue TPN - Continue supplemental oxygen. Wean as able. Ambulatory pulse ox prior to discharge - last day of IV cefepime - continue ferrous sulfate for iron-deficiency - nicotine patch - renal function close to baseline - leukocytosis has resolved - lidocaine patch for right shoulder pain - PT/OT - care management. 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 CODE STATUS: No Code EXPECTED DISCHARGE DATE: 10/09/2023 I spent a total of 55 minutes coordinating, documenting, and providing care for this patient excluding time spent in the performance of separately billed services. * Tj Park, [facility] - 10/05/2023 1:20 PM EDT Images from the original note were not included. PHARMACY PARENTERAL NUTRITION CONSULT [address] [address] Name: Chandrika Hogue Date: 10/04/2023 at 1:20 PM PN per Pharmacy TBW: 44.3 kg Height: 150 cm BMI: 19.73 kg/m2 Age: 58 years Diabetic?: no Central or peripheral administration?: central Current PN parameters: Total Kcal: 1370 (100 % goal) Fluid: 1050 ml (100 % goal) Macronutrients: Amino acids: 60 grams = 240 kcal (4 kcal/gram) = 100 % goal Carbohydrates: 200 grams = 680 kcal (3.4 kcal/gram) = 100 % goal Lipids: 45 grams = 450 kcal (10 kcal/gram) = 100 % goal Micronutrients Electrolytes Na: 40 meq K: 54 meq Phos: 10 mmol M meq Ca: 0 meq Acetate: 40 meq Cl: 40 meq Trace elements: 1 ml Provides Zinc 3 mg Copper 0.3 mg Manganese 55 mcg Selenium 60 mcg Infuvite multivitamin: 10 ml Thiamine 100 mg Octreotide 150 mcg Zinc 5 mg Chloride to acetate ratio: 1 Dextrose mg/kg/min: 1.51 HOME TPN "RECIPE" -Resuming home TPN. -Using trace minerals; currently have no selenium, copper, zinc, or manganese. -Sodium acetate is on backorder; utilizing sodium chloride to provide some Na without administeringtoo much chloride. -Administering TPN daily -Will taper on to administering over 12 hours if patient tolerates. 24 hours today, 16 hours tomorrow, and then 12 hours. 09/21 -Decreased K -Increased phos and dextrose -will do 24 administration today due to increase in macros and will taper after that if patient is stable. 09/22 - D/w Dr. Boswell, d/t labs not being drawn will re-order same TPN regimen as yesterday over 24 hours (decreased potassium acetate from 40 mEq to 20 mEq) - Follow up on labs tomorrow - Update: K at 5.7, d/w nutrition and agree to take all K containing products out for today 09/23 - D/w Dr. Wilkerson regarding TPN, his is okay with adding back 40 mEq of potassium acetate, as well asincreasing protein to 65 g - Added thiamine 100 mg to bag (daily) per Dr. Wilkerson - Start to run over 16 hours tonight 09/24 -decreasing K, administer over 12 hours 09/25 -Remove phos, increase volume to 1500 ml, decrease amino acids to 60 grams, add 150 mcg octreotide 09/26 -sodium acetate is on backorder with no release date, adding and additional 5 mg of zinc, will notify attending that patient may require additional fluid boluses. 09/27 -continue same TPN. 09/28 -Decrease K, start vitamin E 400 PO daily 10/01 -Increase K acetate, give over 24 hours. 10/02 -decreasing volume to 1050 ml due to edema 10/03 -add 5 mmol kphos, 20 hour infusion time; give 2 grams IV magnesium piggyback 10/04 -Increase kphos to 10 mmol, 18 infusion time, add 5 mg of zinc; thiamine level with AM labs on 10/05 Contact the Pharmacy at extension [phone] if there are any questions. * Kailey Vides RN - 10/04/2023 10:03 PM EDT POX between 84-86% on 5 L. O2 turned up to 6 L and position up higher in bed. Changed finger probe on tele alarm and given education on 'smelling the dixon and blowing out the birthday candles.' Ptnon-receptive to education at this time. Pt denied SOB while at rest. Resp notified. * Byron Johnson MD - 10/04/2023 2:51 PM EDT Images from the original note were not included. [facility] 5A-5105/W 58yF w/ PMHX significant for on home TPN, wt loss, gastric bypass status, MDD, bipolar and malabsorption here with multifocal pneumonia, synmptomatic anemia, weight loss and failure to thrive-acute non cardiac pulmonary edema due to fluid overload (TPN) as well as element of Acute pulmonary edema due to acute exacerbation of chronic diastolic HF . INTERVAL HISTORY: Patient states she feels a bit better. Still on 5 LPM NC Intake/Output Summary (Last 24 hours) at 10/04/2023 1456 Last data filed at 10/04/2023 1411 Gross per 24 hour Intake 774.36 ml Output 3600 ml Net -2825.64 ml Objective Physical Exam Most Recent Vital Signs: BP: 102 mmHg/69 mmHg (10/04/23 1507) Pulse: 79 (10/04/23 1507) Temp: 36.22 C (10/04/23 1507) Temp Summary: Temp Min: 36.2 C (97.2 F) Max: 36.5 C (97.7 F) SpO2: 92 % (10/04/23 1507) O2 flow rate: 5 L/MIN (10/04/23 1507) Supplemental O2 Delivery: Nasal Cannula (10/04/23 1507) Physical Exam Vitals reviewed. Constitutional: Appearance: She is not ill-appearing or toxic-appearing. Cardiovascular: Rate and Rhythm: Normal rate. Heart sounds: No friction rub. No gallop. Pulmonary: Effort: Pulmonary effort is normal. No respiratory distress. Breath sounds: No stridor. Decreased breath sounds present. No wheezing or rales. Abdominal: General: There is no distension. Palpations: Abdomen is soft. Tenderness: There is no abdominal tenderness. There is no guarding. Musculoskeletal: Right lower leg: No edema. Left lower leg: No edema. Neurological: Mental Status: She is alert. Urethral Catheter Regular catheter (Active) Number of days: 4 Tunneled Central Cath Double Lumen Left Chest (Active) Number of days: 299 STUDIES: Encounter Orders Labs and other studies reviewed with pertinent findings noted below: Lab results within last 7 days (see chart for full results) Units 10/04/23 0620 10/03/23 0453 10/02/23 0608 HGB g/dL 8.0* 8.6* 8.7* HCT % 25.6* 27.1* 27.8* WBC K/uL 11.43* 13.99* 15.09* PLT K/uL 293 310 305 Lab results within last 7 days (see chart for full results) Units 10/04/23 0610/03/23 1729 10/03/23 0453 Sodium mmol/L 141 139 143 Potassium mmol/L 3.5 4.1 3.3* Chloride mmol/L 104 103 105 CO2 mmol/L 23 22 22 BUN mg/dL 57* 62* 67* Creatinine mg/dL 1.4* 1.5* 1.7* Lab results within last 7 days (see chart for full results) Units 10/04/23 0610/03/23 1729 10/03/23 0453 Magnesium mg/dL 1.6 1.7 1.6 ] Lab results within last 7 days (see chart for full results) Units 10/01/23 0537 Lactate mmol/L 0.9 Lab results within last 7 days (see chart for full results) Units 10/01/23 0007 Troponin T, High Sensitivity ng/L 41* Recent Cultures (2 Weeks) 10/01/2023 10/01/2023 12/12/2022 12/12/2022 12/08/2022 11/17/2022 09/19/2022 09/06/2022 4:50 AM 4:39 AM 12:51 PM 12:46 PM 8:45 PM 1:21 PM 11:30 AM 4:08 PM BLOOD CULTURE GROWTH No growth to date No growth to date No growth No growth -- -- -- -- QUANT URINE CULTURE GROWTH -- -- -- -- >100,000 colonies/mL Enterobacter cloacae complex >100,000 colonies/mL Klebsiella pneumoniae >100,000 colonies/mL Klebsiella pneumoniae >100,000 colonies/mL Klebsiella pneumoniae 10,000 to 100,000 colonies/mL Staphylococcus aureus Assessment and Plan IMPRESSION : Principal Problem: Failure to thrive in adult Active Problems: Anemia Intestinal postoperative nonabsorption Chronic pain syndrome Hereditary and idiopathic peripheral neuropathy Cachexia (HCC) On total parenteral nutrition (TPN) MDD (major depressive disorder), recurrent episode, moderate (HCC) Bipolar disorder (HCC) Tobacco abuse Fall at home Generalized weakness Adjustment disorder ROBINSON (acute kidney injury) (HCC) Acute urinary retention Hypoxia Multifocal pneumonia Acute hypoxic respiratory failure (HCC) Mixed incontinence Retention of urine Resolved Problems: * No resolved hospital problems. * I have examined the patient and consistent with the dietitian's findings found malnutrition presentof Severe (09/21/23 1019) degree. This is consistent with such due to Fat loss;Muscle loss;Inadequate energy intake;Weight loss (09/21/23 1019). I have also reviewed and agree with the dietitian's plan of care which include Continued oral nutrition supplement;Nutrition support monitoring (09/30/23 1206). DIFFERENTIAL AND PLAN: Continue to monitor IOs Avoid nephrotoxin monitor renal function. Pending LP tomorrow for MS r/o; however, thankfully MRI without 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 Continue oxygen support. Wean as tolerated. Continue current antibiotic Monitor Anemia. Likely iron deficiency. S/p 1u pRBC on 09/30; Vit b 12 normal. Will start Venofer. Seems oral iron is not reaching due to malabsorption. Discussed with clinical sociologist regarding TPN long goods drier vs PEG attempt. Seems patient needs TPN due to malabsorption and has been doing well from nutrition standpoint with weight gain. Continue current regimen Follow AM labs PHARMACOLOGIC VTE PROPHYLAXIS: This patient does not have an active medication from one of the medication groupers. CODE STATUS: No Code EXPECTED DISCHARGE DATE: 10/09/2023 I spent a total of 50 minutes coordinating, documenting, and providing care for this patient excluding time spent in the performance of separately billed services. * Tj Park, [facility] - 10/04/2023 10:17 AM EDT Images from the original note were not included. PHARMACY PARENTERAL NUTRITION CONSULT [facility] [address] Name: Chandrika Hogue Date: 10/04/2023 at 10:17 AM PN per Pharmacy TBW: 44.3 kg Height: 150 cm BMI: 19.73 kg/m2 Age: 58 years Diabetic?: no Central or peripheral administration?: central Current PN parameters: Total Kcal: 1370 (100 % goal) Fluid: 1050 ml (100 % goal) Macronutrients: Amino acids: 60 grams = 240 kcal (4 kcal/gram) = 100 % goal Carbohydrates: 200 grams = 680 kcal (3.4 kcal/gram) = 100 % goal Lipids: 45 grams = 450 kcal (10 kcal/gram) = 100 % goal Micronutrients Electrolytes Na: 40 meq K: 47 meq Phos: 5 mmol M meq Ca: 0 meq Acetate: 40 meq Cl: 40 meq Trace elements: 1 ml Provides Zinc 3 mg Copper 0.3 mg Manganese 55 mcg Selenium 60 mcg Infuvite multivitamin: 10 ml Thiamine 100 mg Octreotide 150 mcg Chloride to acetate ratio: 1 Dextrose mg/kg/min: 1.49 HOME TPN "RECIPE" -Resuming home TPN. -Using trace minerals; currently have no selenium, copper, zinc, or manganese. -Sodium acetate is on backorder; utilizing sodium chloride to provide some Na without administeringtoo much chloride. -Administering TPN daily -Will taper on to administering over 12 hours if patient tolerates. 24 hours today, 16 hours tomorrow, and then 12 hours. 09/21 -Decreased K -Increased phos and dextrose -will do 24 administration today due to increase in macros and will taper after that if patient is stable. 09/22 - D/w Dr. Boswell, d/t labs not being drawn will re-order same TPN regimen as yesterday over 24 hours (decreased potassium acetate from 40 mEq to 20 mEq) - Follow up on labs tomorrow - Update: K at 5.7, d/w nutrition and agree to take all K containing products out for today 09/23 - D/w Dr. Wilkerson regarding TPN, his is okay with adding back 40 mEq of potassium acetate, as well asincreasing protein to 65 g - Added thiamine 100 mg to bag (daily) per Dr. Wilkerson - Start to run over 16 hours tonight 09/24 -decreasing K, administer over 12 hours 09/25 -Remove phos, increase volume to 1500 ml, decrease amino acids to 60 grams, add 150 mcg octreotide 09/26 -sodium acetate is on backorder with no release date, adding and additional 5 mg of zinc, will notify attending that patient may require additional fluid boluses. 09/27 -continue same TPN. 09/28 -Decrease K, start vitamin E 400 PO daily 10/01 -Increase K acetate, give over 24 hours. 10/02 -decreasing volume to 1050 ml due to edema 10/03 -add 5 mmol kphos, 20 hour infusion time; give 2 grams IV magnesium piggyback Contact the Pharmacy at extension [phone] if there are any questions. * Tj Park [facility] - 10/03/2023 12:50 PM EDT Images from the original note were not included. PHARMACY PARENTERAL NUTRITION CONSULT [facility]-[address] [address] Name: Chandrika Hogue Date: 10/03/2023 at 12:50 PM PN per Pharmacy TBW: 44.3 kg Height: 150 cm BMI: 19.73 kg/m2 Age: 58 years Diabetic?: no Central or peripheral administration?: central Current PN parameters: Total Kcal: 1370 (100 % goal) Fluid: 1500 ml (100 % goal) Macronutrients: Amino acids: 60 grams = 240 kcal (4 kcal/gram) = 100 % goal Carbohydrates: 200 grams = 680 kcal (3.4 kcal/gram) = 100 % goal Lipids: 45 grams = 450 kcal (10 kcal/gram) = 100 % goal Micronutrients Electrolytes Na: 40 meq K: 40 meq Phos: 0 mmol M meq Ca: 0 meq Acetate: 40 meq Cl: 40 meq Trace elements: 1 ml Provides Zinc 3 mg Copper 0.3 mg Manganese 55 mcg Selenium 60 mcg Infuvite multivitamin: 10 ml Thiamine 100 mg Octreotide 150 mcg Chloride to acetate ratio: 4 Dextrose mg/kg/min: 1.39 HOME TPN "RECIPE" -Resuming home TPN. -Using trace minerals; currently have no selenium, copper, zinc, or manganese. -Sodium acetate is on backorder; utilizing sodium chloride to provide some Na without administeringtoo much chloride. -Administering TPN daily -Will taper on to administering over 12 hours if patient tolerates. 24 hours today, 16 hours tomorrow, and then 12 hours. 09/21 -Decreased K -Increased phos and dextrose -will do 24 administration today due to increase in macros and will taper after that if patient is stable. 09/22 - D/w Dr. Boswell, d/t labs not being drawn will re-order same TPN regimen as yesterday over 24 hours (decreased potassium acetate from 40 mEq to 20 mEq) - Follow up on labs tomorrow - Update: K at 5.7, d/w nutrition and agree to take all K containing products out for today 09/23 - D/w Dr. Wilkerson regarding TPN, his is okay with adding back 40 mEq of potassium acetate, as well asincreasing protein to 65 g - Added thiamine 100 mg to bag (daily) per Dr. Wilkerson - Start to run over 16 hours tonight 09/24 -decreasing K, administer over 12 hours 09/25 -Remove phos, increase volume to 1500 ml, decrease amino acids to 60 grams, add 150 mcg octreotide 09/26 -sodium acetate is on backorder with no release date, adding and additional 5 mg of zinc, will notify attending that patient may require additional fluid boluses. 09/27 -continue same TPN. 09/28 -Decrease K, start vitamin E 400 PO daily 10/01 -Increase K acetate, give over 24 hours. 10/02 -decreasing volume to 1050 ml due to edema Contact the Pharmacy at extension [phone] if there are any questions. * Basia Rene, RN - 10/03/2023 11:21 AM EDT Nursing Critical Care Response Note [facility]-[address] [address] Name: Chandrika Hogue Date: 10/03/2023 Time: 11:21 AM Event Location: [facility], Unit Area: 5A In the role of the Critical Response Nurse I was involved in the care of this patient. Method of notification to the critical care response nurse: Follow up previous notification Reason for notification or follow up: Respiratory distress Observations/Interventions/Assessment: Much more awake and alert and very conversive. No resp distress. On 5 LPM. To receive LP today . States she "feels good." Outcome/Plan Will continue to monitor and assist as needed * Wilfrid Huizar MD - 10/03/2023 8:13 AM EDT PROGRESS NOTE - Thoracic / Pulmonary Medicine [facility]-[address] [address] Name: Chandrika Hogue Location: [facility] 5A-5105/W Date: 10/03/2023 Time: 8:14 AM INTERIM HISTORY: Last evening and overnight events reviewed. Patient received oral lorazepam for MRI and also received 20 units of NovoLog for glucose of 400 (no prior history of diabetes) and subsequently noted to have respiratory failure requiring NIV support with she was not compliant with and on fingerstick glucose of 30 received dextrose supplementation with improvement in glucose. Received IV diuretic therapy and made about 4 L urine over last 24 hours. Still net positive 7 L and also her admission kilos and now it is around 40.6 kilos. Requested pulmonary follow-up today by Jess Carranza MD for acute hypoxic respiratory failurerequiring supplemental O2 at 5 liters/minute. Patient was seen and examined at bedside. Awake alert, following commands appropriately. Conversingin full sentences without any respiratory distress or use of accessory muscle. ROS: As per HPI. PHYSICAL EXAM: Most Recent Vital Signs: BP: 97 mmHg/61 mmHg (10/03/23713) Pulse: 88 (10/03/23748) Temp: 37.72 C (10/03/23713) Temp Summary: Temp Min: 35.9 C (96.6 F) Max: 37.7 C (99.9 F) SpO2: 90 % (10/03/23748) O2 flow rate: 5 L/MIN (10/03/23748) Supplemental O2 Delivery: Nasal Cannula (10/03/23748) O2 Mode: O2 %: O2 %: 40 % (10/02/231802) O2 Flow Rate: O2 flow rate: 5 L/MIN (10/03/23748) IPAP: IPAP: 14 cmH2O (10/02/231802) CPAP/EPAP: CPAP/EPAP Settings: 7 CMH2O (10/02/231802) Vital Signs Last 24 Hours: Systolic BP: Most Recent Systolic BP Av.6 mmHg Min: 90 mmHg Max: 104 mmHg Temperature: Most Recent Temperature Av.5 C Min: 35.89 C Max: 37.72 C Pulse: Pulse Av.8 Min: 76 Max: 116 Respirations: Resp Av.1 Min: 18 Max: 26 SpO2: SpO2 Av.6 % Min: 88 % Max: 96 % Malnourished, thin, frail patient. Ill-appearing but not in any obvious respiratory distress. HEENT: Mucosa moist. Chest: Bilateral breath sounds equally present with bilateral rales, no wheeze or rhonchi. Left chest MediPort present. Abdomen soft mildly tender to palpation. Lower extremity mild edema noted. Neurologically: Awake, alert, oriented x3. No focal deficit. GCS of 15. LABS: Labs reviewed as indicated below: BUN 67 creatinine 1.7 with potassium of 3.3 glucose of 101 phosphorus of 5.0 and magnesium of 1.6. CBC-white count of 13.9 (decreasing) hemoglobin 8.6 (stable H&H) platelet count 310. Chest x-ray from 10/02/2023-reviewed in PACS. Bilateral interstitial changes consistent with pulmonary edema. No PFTs available to review. Echocardiogram performed this morning-pending results. PULMONARY CONCURRENT CARE IMPRESSION: In summary; 58-year-old female with prior gastric bypass and subsequent malabsorption syndrome admitted with failure to thrive and TPN on 09/20/23, hospital course complicated by ROBINSON and acute hypoxic respiratory failure likely secondary to fluid overload/pulmonary edema. Yesterday event likely multifactorial with fluid overload/pulmonary edema, lorazepam received for MRI with suppressed mental status along with insulin received for glucose of 400 with 20 units of NovoLog lead to hypoglycemia causing to worsening respiratory insufficiency. Patient remained hemodynamically stable with supplemental O2 at 5 liters/minute maintaining SpO2 above 92% without any respiratory distress. PULMONARY CONCURRENT CARE SUGGESTION(S): Supplemental O2 to keep SpO2 above 89%. Incentive spirometer/flutter therapy. Bronchodilator as needed. PT/OT/out of bed to chair as tolerated. TPN held overnight, resuming this a.m. as per nutrition and primary team, would continue Diuresis as per primary-excellent urine output over last 24 hours with 4 L plus. Monitor electrolytes and replete as needed. Still patient is 7 L positive and 7 kilos up since admission. Would recommend cautious use of insulin therapy given significant hypoglycemia yesterday. Monitor glucose, maintain between 140-180. Recommend checking hemoglobin A1c. Confirmed code status with patient at bedside DNR/DNI. Rest of the management as per primary team. Please re-contact Pulmonary for any question or concern or if patient condition deteriorate. #This note was completed in part utilizing [employer] Speech Voice Recognition Software. Grammatical errors, random word insertions, pronoun errors and incomplete sentences are an occasional consequenceof this system due to software limitations, ambient noise and hardware issues. Please directly address the provider for any questions or concerns about the context, text or information contained within the body of this note. I spent a total of 35 minutes coordinating, documenting, and providing care for this patient excluding time spent in the performance of separately billed services. Wilfrid Huizar MD PCCM attending. * Jess Carranza MD - 10/03/2023 8:04 AM EDT Images from the original note were not included. [facility] 5A-5105/W INTERVAL HISTORY: 58yF w/ PMHX significant for on home TPN, wt loss, gastric bypass status, MDD, bipolar and malabsorption here with multifocal pneumonia, synmptomatic anemia, weight loss and failure to thrive. Last PM - drowsy after ativan- wore bipap till more alert - pulm edema pic on xray - HELD TPN overnight - gave 20mg IV lasix BID yesterday Intake/Output Summary (Last 24 hours) at 10/03/2023 0805 Last data filed at 10/03/2023 0600 Gross per 24 hour Intake 870.57 ml Output 4500 ml Net -3629.43 ml Subjective: Patient is frustrated. I tell her her MRI was not the best study because of some motion. She said then knock me out and do it again. 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 Her TPN was held overnight c/w my order. She received iv lasix x2 and has bump in creatinine today to 1.7. She is currently getting an echo. She wants to know WHEN her LP will be. Patient very concerned her whole picture is because of MS. Per neuro MS has been ruled out in the past, but reasonable to repeat MRI (completed- poor study) andLP (studies ordered- 10/04) Objective Physical Exam Most Recent Vital Signs: BP: 97 mmHg/61 mmHg (10/03/23713) Pulse: 88 (10/03/23748) Temp: 37.72 C (10/03/23713) Temp Summary: Temp Min: 35.9 C (96.6 F) Max: 37.7 C (99.9 F) SpO2: 90 % (10/03/23748) O2 flow rate: 5 L/MIN (10/03/23748) Supplemental O2 Delivery: Nasal Cannula (10/03/23748) BP 97/61 | Pulse 88 | Temp 37.7 C (99.9 F) (Temporal Artery) | Resp 18 | Ht 1.499 m (4' 11") | Wt 40.6 kg (89 lb 9.6 oz) | LMP 04/05/2007 | SpO2 90% | BMI 18.10 kg/m | BSA 1.3 m Vitals reviewed over last 24 hours General: thin female, having TTE performed, appears stressed, but no in any physical distress. HEEN: EOMI, no scleral icterus NECK: no stridor, no JVD PULM:coarse bilateral rhonchi, no respiratory distress, no tachypnea CVS: tachyRR, no mumurs, no rubs, no gallops, cap refil<2sec ABD: soft, NT, ND +BS, no rebound, no guarding EXT: WWP, no peripheral edema, LLE >RLE at baseline Yin in place TPN infusing through PORT Neuro:alert and oriented x3, CN 2-12 grossly intact, gait intact, strength grossly intact Psych: normal mood and affect Urethral Catheter Regular catheter (Active) Number of days: 3 Tunneled Central Cath Double Lumen Left Chest (Active) Number of days: 298 STUDIES: Encounter Orders Labs and other studies reviewed with pertinent findings noted below: Recent Results (from the past 24 hour(s)) GLUCOSE METER, POINT OF CARE Collection Time: 10/02/23 12:05 PM Result Value Ref Range Glucose Meter 438 (H) 70 - 120 mg/dL GLUCOSE METER, POINT OF CARE Collection Time: 10/02/23 2:18 PM Result Value Ref Range Glucose Meter 111 70 - 120 mg/dL GLUCOSE METER, POINT OF CARE Collection Time: 10/02/23 5:41 PM Result Value Ref Range Glucose Meter 163 (H) 70 - 120 mg/dL BLOOD GAS, ARTERIAL Collection Time: 10/02/23 5:51 PM Result Value Ref Range Temperature 37.0 C pH, Arterial 7.335 (L) 7.350 - 7.450 units pCO2, Arterial 40.6 35.0 - 45.0 mmHg pO2, Arterial 62.9 (L) 75.0 - 100.0 mmHg Base Excess, Arterial -3.8 (L) -2.0 - 2.0 mmol/L HGB 8.1 (L) 12.0 - 15.3 g/dL Oxyhemoglobin, Arterial 87.5 (L) 94.0 - 99.0 % total Hgb Carboxyhemoglobin, Whole Blood 1.1 <=1.5 % total Hgb Methemoglobin, Whole Blood 2.0 (H) <=1.5 % total Hgb Reduced Hemoglobin, Arterial 9.4 (H) 0.0 - 5.0 % total Hgb O2 Content, Arterial 10.1 (L) 15.0 - 24.0 %vol FiO2 Not Provided % O2 Flow, Arterial 5 L/min Bicarbonate, Whole Blood 21.1 (L) 23.0 - 31.0 mmol/L GLUCOSE METER, POINT OF CARE Collection Time: 10/02/23 6:19 PM Result Value Ref Range Glucose Meter 67 (L) 70 - 120 mg/dL GLUCOSE METER, POINT OF CARE Collection Time: 10/02/23 7:09 PM Result Value Ref Range Glucose Meter 98 70 - 120 mg/dL GLUCOSE METER, POINT OF CARE Collection Time: 10/02/23 8:11 PM Result Value Ref Range Glucose Meter 62 (L) 70 - 120 mg/dL GLUCOSE METER, POINT OF CARE Collection Time: 10/02/23 11:14 PM Result Value Ref Range Glucose Meter 98 70 - 120 mg/dL GLUCOSE METER, POINT OF CARE Collection Time: 10/03/23 3:37 AM Result Value Ref Range Glucose Meter 103 70 - 120 mg/dL BASIC METABOLIC PANEL Collection Time: 10/03/23 4:53 AM Result Value Ref Range BUN 67 (H) 6 - 20 mg/dL Creatinine 1.7 (H) 0.5 - 1.0 mg/dL Estimated Glomerular Filtration Rate 35 (L) >=60 mL/min Sodium 143 135 - 146 mmol/L Potassium 3.3 (L) 3.5 - 5.1 mmol/L Chloride 105 98 - 107 mmol/L CO2 22 22 - 32 mmol/L Anion Gap 16 (H) 7 - 15 mmol/L Glucose 101 70 - 120 mg/dL Calcium 8.7 8.4 - 10.2 mg/dL PHOSPHORUS Collection Time: 10/03/23 4:53 AM Result Value Ref Range Phosphorus 5.0 (H) 2.5 - 4.8 mg/dL MAGNESIUM Collection Time: 10/03/23 4:53 AM Result Value Ref Range Magnesium 1.6 1.5 - 2.6 mg/dL CALCIUM, IONIZED Collection Time: 10/03/23 4:53 AM Result Value Ref Range Calcium, Ionized 1.22 1.13 - 1.32 mmol/L } Assessment and Plan IMPRESSION : Principal Problem: Failure to thrive in adult Active Problems: Anemia Intestinal postoperative nonabsorption Chronic pain syndrome Hereditary and idiopathic peripheral neuropathy Cachexia (HCC) On total parenteral nutrition (TPN) MDD (major depressive disorder), recurrent episode, moderate (HCC) Bipolar disorder (HCC) Tobacco abuse Fall at home Generalized weakness Adjustment disorder ROBINSON (acute kidney injury) (HCC) Acute urinary retention Hypoxia Multifocal pneumonia Acute hypoxic respiratory failure (HCC) Mixed incontinence Retention of urine Resolved Problems: * No resolved hospital problems. * Kacie I have examined the patient and consistent with the dietitian's findings found malnutrition present of Severe (09/21/23 1019) degree. This is consistent with such due to Fat loss;Muscle loss;Inadequate energy intake;Weight loss (09/21/23 1019). I have also reviewed and agree with the dietitian's plan of care which include Continued oral nutrition supplement;Nutrition support monitoring (09/30/23 1206). DIFFERENTIAL AND PLAN: Acute hypoxic respiratory failure likely 2/2 to pulmonary edema +/- multifocal PNA --- Multiple episodes of respiratory distress occurring at night when patient was receiving 12 hour tpnOVERNIGHT - TPN held last night - ok to start TPN with reduced volume today- discussed with pharmacy - will give 10mg IV lasix q12, MAP goal is >65- current MAP is 73 - TTE completed- follow up results - Cefepime day 4 - procal is 0.55 on 10/01- repeat in AM on 10/03 - sputum culture- not producing at present - MRSA screen- negative - neg RVP on 09-30 -legionella antigen - negative - BC NGTD x2 ROBINSON c/w ishcemic ATN, post obstructive ROBINSON, improved, but now bump in Cr to due aggressive IV diuresis for respiratory distress - nephro follow up today - appreciate input from nephro - avoid nephrotoxins - strict I and O - maintain yin -MAP >65, getting blood today, no IVF Metabolic acidosis from ARF- RESOLVED -c02 on BMP within normal limits today! -ctw oral bicarb -Neuro consult- ?MS workup (Acute urinary retention, unsteady gait, frequent falls) - IR LP ordered- plan for 10/04 - MRI ordered- no evidence demyelinating but poor study due to motion - appreciate neurology input Acute urinary retention, unsteady gait, frequent falls - urology consulted - maintain yin until 10/03 if no further respiratory distress - voiding trial tomorrow with timed voiding and checking residuals. If se empties well then we can avoid longer term catheter use. - start timed void every hour or two while awake and void twice in the morning and in the evening. Symptomatic anemia with elevated BUN, iron deficiency anemia - possible GIB, chronic slow, trend HGB - hgb stable after 1uPRBC on 09/30 - check iron panel, b12, folic acid - monitor I and O - wean oxygen as tolerated Malnutrition - appreciate recs from GI nutrition clinic - 24 hour TPN Hyperglycemia - continue ISS Continue PT and OT Nutrition, Pharmacy, Psych consulted Dispo - pending completion of LP - stabilization of TPN and respiratory status, renal status Other home medications as directed. Acetaminophen (Tylenol) tab 650 mg insulin aspart (NovoLOG) inj Adult TPN central IV dextrose 50% inj 25 mL dextrose 50% inj 50 mL glucagon (Glucagen) inj 1 mg Glucose (Glutose 15) 40 % gel 15 g of glucose Glucose (Glutose 15) 40 % gel 30 g of glucose glucose chew tab 16 g Albuterol Sulfate (Proventil) (2.5 MG/3ML) 0.083% inhalation solution 2.5 mg cefepime in dextrose (Maxipime) ivpb 1 g Ventilation Method: Acute Non-Invasive --- PEEP/EPAP/CPAP: 5 --- Changes Per Adult Protocol: Yes AND oxygen GAS sodium bicarbonate tab 1,300 mg Cholestyramine Light (Prevalite) oral powder 4 g oxyCODONE (Oxy IR) tab 5 mg Vitamin E (Aquasol E) cap 400 Units Simethicone (Mylicon) chew tab 80 mg diphenoxylate-atropine 2.5-0.025 mg per tab (Lomotil) 2 Tablet traMADol (Ultram) tab 50 mg Ferrous Sulfate (Feosol) tab 325 mg Vitamin C (Ascorbic Acid) tab 250 mg ALPRAZolam (xaNAX) tab 0.25 mg Docusate Sodium (Colace) cap 100 mg promethazine (Phenergan) tab 25 mg SUMAtriptan (Imitrex) tab 50 mg fgjoncmjqi-wisoisexobbsg-loqgfmix 50-325-40 mg per tab (Fioricet) 1 Tablet Calcitriol (Rocaltrol) cap 0.25 mcg dicyclomine (Bentyl) cap 20 mg DULoxetine (Cymbalta) DR cap 120 mg Ergocalciferol (Vitamin D2(Drisdol)) cap 50,000 Units Lidocaine (Aspercreme) 4 % patch 1 Patch mirtazapine ODT (Remeron Soltab) tab 45 mg Nicotine (Nicoderm CQ) 21 MG/24HR patch 1 Patch OLANZapine ODT (zyPREXA zyDIS) tab 5 mg omeprazole (PriLOSEC) cap 20 mg ondansetron ODT (Zofran) tab 4 mg Pregabalin (Lyrica) cap 25 mg QUEtiapine (SEROquel) tab 50 mg sodium chloride 0.9 % flush central line 10 mL sodium chloride 0.9 % flush/inj 3 mL Orders Placed This Encounter Procedures Regular Diet PHARMACOLOGIC VTE PROPHYLAXIS: This patient does not have an active medication from one of the medication groupers. CODE STATUS: No Code EXPECTED DISCHARGE DATE: No information available I spent a total of 51 minutes coordinating, documenting, and providing care for this patient excluding time spent in the performance of separately billed services. * Carlotta Weems, RN - 10/03/2023 4:34 AM EDT Nursing Critical Care Response Note [address] [address] Name: Chandrika Hogue Date: 10/03/2023 Time: 4:34 AM Event Location: [facility], Unit Area: In the role of the Critical Response Nurse I was involved in the care of this patient. Method of notification to the critical care response nurse: Follow up previous notification Reason for notification or follow up: Chart Review Hypoglycemia Observations/Interventions/Assessment: Pt awake and talking. Pt is requesting bi-pap be removed. Pt has put out 1400ml urine via yin. PtBSBS remains low 2.5 amps of D50 given. Pt BS being checked frequently remaining stable at this point. Pt placed on 5 L NC. Spo2 remains in mid 90's. Outcome/Plan Will continue to follow. Please reach out with questions or concerns. * Basia Rene RN - 10/02/2023 6:11 PM EDT Nursing Critical Care Response Note [address] [address] Name: Chandrika Hogue Date: 10/02/2023 Time: 6:11 PM Event Location: [facility], Unit Area: 5A In the role of the Critical Response Nurse I was involved in the care of this patient. Method of notification to the critical care response nurse: Other: request by Dr. Palma to see pt due to poor resp status Reason for notification or follow up: Respiratory distress Observations/Interventions/Assessment:pt had ativan .5mg at 1533 as prep for MRI. Currently fallingasleep easily with blowing resps. Awakens easily and then refuses bipap. Requesting to eat. ABGs obtained with PCO2 of 40. Consented to bipap for "one hour". Fell asleep as soon as bipap placed. Sat 94-97%. Requires head to be positioned when asleep as to not obstruct airway. BS to be checked Q 1 hour x 3 since episode of hypoglycemia of 30 at 1700. (Had been >400 at noon) Outcome/Plan Will report to operations supervisor 2nd shift CRN for follow up * Basia Rene, RN - 10/02/2023 10:55 AM EDT Nursing Critical Care Response Note [facility]-[address] [address] Name: Chandrika Hogue Date: 10/02/2023 Time: 10:55 AM Event Location: [facility], Unit Area: 5A In the role of the Critical Response Nurse I was involved in the care of this patient. Method of notification to the critical care response nurse: Follow up previous notification Reason for notification or follow up: Respiratory distress Observations/Interventions/Assessment: Very talkative without SOB. Decreased to NC with sat at 93%. Neuro and Urology consults completed. To have MRI and LP. Voiding trials tomorrow. WBC down to 15. On Cefepime Outcome/Plan Will continue to monitor and offer assistance as needed. * Tj Park, [facility] - 10/02/2023 9:43 AM EDT Images from the original note were not included. PHARMACY PARENTERAL NUTRITION CONSULT [facility]-[address] [address] Name: Chandrika Hogue Date: 10/02/2023 at 9:43 AM PN per Pharmacy TBW: 44.3 kg Height: 150 cm BMI: 19.73 kg/m2 Age: 58 years Diabetic?: no Central or peripheral administration?: central Current PN parameters: Total Kcal: 1370 (100 % goal) Fluid: 1500 ml (100 % goal) Macronutrients: Amino acids: 60 grams = 240 kcal (4 kcal/gram) = 100 % goal Carbohydrates: 200 grams = 680 kcal (3.4 kcal/gram) = 100 % goal Lipids: 45 grams = 450 kcal (10 kcal/gram) = 100 % goal Micronutrients Electrolytes Na: 40 meq K: 40 meq Phos: 0 mmol M meq Ca: 0 meq Acetate: 40 meq Cl: 40 meq Trace elements: 1 ml Provides Zinc 3 mg Copper 0.3 mg Manganese 55 mcg Selenium 60 mcg Infuvite multivitamin: 10 ml Thiamine 100 mg Octreotide 150 mcg Chloride to acetate ratio: 4 Dextrose mg/kg/min: 1.39 HOME TPN "RECIPE" -Resuming home TPN. -Using trace minerals; currently have no selenium, copper, zinc, or manganese. -Sodium acetate is on backorder; utilizing sodium chloride to provide some Na without administeringtoo much chloride. -Administering TPN daily -Will taper on to administering over 12 hours if patient tolerates. 24 hours today, 16 hours tomorrow, and then 12 hours. 09/21 -Decreased K -Increased phos and dextrose -will do 24 administration today due to increase in macros and will taper after that if patient is stable. 09/22 - D/w Dr. Boswell, d/t labs not being drawn will re-order same TPN regimen as yesterday over 24 hours (decreased potassium acetate from 40 mEq to 20 mEq) - Follow up on labs tomorrow - Update: K at 5.7, d/w nutrition and agree to take all K containing products out for today 09/23 - D/w Dr. Wilkerson regarding TPN, his is okay with adding back 40 mEq of potassium acetate, as well asincreasing protein to 65 g - Added thiamine 100 mg to bag (daily) per Dr. Wilkerson - Start to run over 16 hours tonight 09/24 -decreasing K, administer over 12 hours 09/25 -Remove phos, increase volume to 1500 ml, decrease amino acids to 60 grams, add 150 mcg octreotide 09/26 -sodium acetate is on backorder with no release date, adding and additional 5 mg of zinc, will notify attending that patient may require additional fluid boluses. 09/27 -continue same TPN. 09/28 -Decrease K, start vitamin E 400 PO daily 10/01 -Increase K acetate, give over 24 hours. Contact the Pharmacy at extension [phone] if there are any questions. * Jess Carranza MD - 10/02/2023 6:57 AM EDT Images from the original note were not included. [facility] 5A-5105/W INTERVAL HISTORY: 58yF w/ PMHX significant for on home TPN, wt loss, gastric bypass status, MDD, bipolar and malabsorption here with multifocal pneumonia, synmptomatic anemia, weight loss and failure to thrive. -Overnight w/ worsening acute respiratory failure with hypxia- seen by critical care nursing, CXR and albuterol neb given- patient placed on BIPAP - Without diuretic- negative 1.5L (post-obstructive diuresis) - BP soft - given 20mg IV lasix today Subjective: Patient trying to get out of bed, has to go to the bathroom NOW. Nurse and I assist her there. She wore bipap last night. Said it was an awful night, she didn't get much sleep, trouble breathingand frequent providers in the room. She feels well today. She is breathing easier today. She is receiving TPN. She wants to speak to the neurologist about MS. She saw the urologist this morning. Objective Physical Exam Most Recent Vital Signs: BP: 104 mmHg/62 mmHg (10/02/23299) Pulse: 115 (10/02/23299) Temp: 37.22 C (10/02/23299) Temp Summary: Temp Min: 35.6 C (96.1 F) Max: 37.8 C (100 F) SpO2: 94 % (10/02/23299) O2 flow rate: 5 L/MIN (10/01/232323) Supplemental O2 Delivery: Non-Invasive CPAP/BiPAP (10/02/23299) BP 104/62 | Pulse 115 | Temp 37.2 C (99 F) (Temporal Artery) | Resp 36 | Ht 1.499 m (4' 11") | Wt 43.1 kg (95 lb) | LMP 04/05/2007 | SpO2 94% | BMI 19.19 kg/m | BSA 1.34 m Vitals reviewed over last 24 hours General: thin female, breathing comfortably while ambulating to bathroom HEEN: EOMI, no scleral icterus NECK: no stridor, no JVD PULM:coarse bilateral rhonchi, no respiratory distress, no tachypnea CVS: tachyRR, no mumurs, no rubs, no gallops, cap refil<2sec ABD: soft, NT, ND +BS, no rebound, no guarding EXT: WWP, no peripheral edema Yin in place TPN infusing through PORT Neuro:alert and oriented x3, CN 2-12 grossly intact, gait intact, strength grossly intact Psych: normal mood and affect Urethral Catheter Regular catheter (Active) Number of days: 2 Tunneled Central Cath Double Lumen Left Chest (Active) Number of days: 297 STUDIES: Encounter Orders Labs and other studies reviewed with pertinent findings noted below: Recent Results (from the past 24 hour(s)) CBC Collection Time: 10/01/23 7:36 AM Result Value Ref Range WBC 17.02 (H) 4.00 - 10.80 K/uL RBC 2.27 3.85 - 5.15 M/uL HGB 7.2 (L) 12.0 - 15.3 g/dL HCT 23.0 (L) 36.0 - 45.2 % MCV 101.3 81.5 - 97.5 fL MCH 31.7 27.0 - 34.0 pg MCHC 31.3 32.0 - 36.0 g/dL RDW 14.2 11.5 - 15.5 % PLT 289 140 - 400 K/uL MPV 11.8 6.6 - 11.1 fL nRBCs 0 <=0 /100 WBCs TYPE AND SCREEN Collection Time: 10/01/23 7:36 AM Result Value Ref Range ABO A Rh Positive Red Blood Cell Antibody Screen Negative Specimen Expiration Date 10/04/2023 23:59 GLUCOSE METER, POINT OF CARE Collection Time: 10/01/23 11:22 AM Result Value Ref Range Glucose Meter 162 (H) 70 - 120 mg/dL CBC Collection Time: 10/01/23 12:27 PM Result Value Ref Range WBC 17.00 (H) 4.00 - 10.80 K/uL RBC 2.79 3.85 - 5.15 M/uL HGB 8.4 (L) 12.0 - 15.3 g/dL HCT 26.4 (L) 36.0 - 45.2 % MCV 94.6 81.5 - 97.5 fL MCH 30.1 27.0 - 34.0 pg MCHC 31.8 32.0 - 36.0 g/dL RDW 17.9 11.5 - 15.5 % PLT 274 140 - 400 K/uL MPV 11.7 6.6 - 11.1 fL nRBCs 0 <=0 /100 WBCs MRSA SCREEN, PCR Collection Time: 10/01/23 2:03 PM Result Value Ref Range MRSA PCR Result Negative Negative GLUCOSE METER, POINT OF CARE Collection Time: 10/01/23 5:34 PM Result Value Ref Range Glucose Meter 139 (H) 70 - 120 mg/dL CBC Collection Time: 10/01/23 9:48 PM Result Value Ref Range WBC 16.47 (H) 4.00 - 10.80 K/uL RBC 3.24 3.85 - 5.15 M/uL HGB 9.8 (L) 12.0 - 15.3 g/dL HCT 30.7 (L) 36.0 - 45.2 % MCV 94.8 81.5 - 97.5 fL MCH 30.2 27.0 - 34.0 pg MCHC 31.9 32.0 - 36.0 g/dL RDW 19.3 11.5 - 15.5 % PLT 308 140 - 400 K/uL MPV 11.9 6.6 - 11.1 fL nRBCs 0 <=0 /100 WBCs BLOOD GAS, ARTERIAL Collection Time: 10/02/23 12:07 AM Result Value Ref Range Temperature 37.0 C pH, Arterial 7.377 7.350 - 7.450 units pCO2, Arterial 32.1 (L) 35.0 - 45.0 mmHg pO2, Arterial 68.4 (L) 75.0 - 100.0 mmHg Base Excess, Arterial -5.6 (L) -2.0 - 2.0 mmol/L HGB 8.5 (L) 12.0 - 15.3 g/dL Oxyhemoglobin, Arterial 89.1 (L) 94.0 - 99.0 % total Hgb Carboxyhemoglobin, Whole Blood 1.2 <=1.5 % total Hgb Methemoglobin, Whole Blood 2.0 (H) <=1.5 % total Hgb Reduced Hemoglobin, Arterial 7.7 (H) 0.0 - 5.0 % total Hgb O2 Content, Arterial 10.7 (L) 15.0 - 24.0 %vol FiO2 Not Provided % O2 Flow, Arterial 5 L/min Bicarbonate, Whole Blood 18.4 (L) 23.0 - 31.0 mmol/L GLUCOSE METER, POINT OF CARE Collection Time: 10/02/23 12:26 AM Result Value Ref Range Glucose Meter 159 (H) 70 - 120 mg/dL BLOOD GAS, ARTERIAL Collection Time: 10/02/23 6:05 AM Result Value Ref Range Temperature 37.0 C pH, Arterial 7.362 7.350 - 7.450 units pCO2, Arterial 34.0 (L) 35.0 - 45.0 mmHg pO2, Arterial 83.1 75.0 - 100.0 mmHg Base Excess, Arterial -5.4 (L) -2.0 - 2.0 mmol/L HGB 8.7 (L) 12.0 - 15.3 g/dL Oxyhemoglobin, Arterial 91.6 (L) 94.0 - 99.0 % total Hgb Carboxyhemoglobin, Whole Blood 1.0 <=1.5 % total Hgb Methemoglobin, Whole Blood 2.2 (H) <=1.5 % total Hgb Reduced Hemoglobin, Arterial 5.2 (H) 0.0 - 5.0 % total Hgb O2 Content, Arterial 11.3 (L) 15.0 - 24.0 %vol FiO2 40 % O2 Flow, Arterial Not Provided L/min Bicarbonate, Whole Blood 18.8 (L) 23.0 - 31.0 mmol/L CALCIUM, IONIZED Collection Time: 10/02/23 6:13 AM Result Value Ref Range Calcium, Ionized 1.22 1.13 - 1.32 mmol/L } Assessment and Plan IMPRESSION : Principal Problem: Failure to thrive in adult Active Problems: Anemia Intestinal postoperative nonabsorption Chronic pain syndrome Hereditary and idiopathic peripheral neuropathy Cachexia (HCC) On total parenteral nutrition (TPN) MDD (major depressive disorder), recurrent episode, moderate (HCC) Bipolar disorder (HCC) Tobacco abuse Fall at home Generalized weakness Adjustment disorder ROBINSON (acute kidney injury) (HCC) Acute urinary retention Hypoxia Multifocal pneumonia Acute hypoxic respiratory failure (HCC) Resolved Problems: * No resolved hospital problems. * Kacie I have examined the patient and consistent with the dietitian's findings found malnutrition present of Severe (09/21/23 1019) degree. This is consistent with such due to Fat loss;Muscle loss;Inadequate energy intake;Weight loss (09/21/23 1019). I have also reviewed and agree with the dietitian's plan of care which include Continued oral nutrition supplement;Nutrition support monitoring (09/30/23 1206). DIFFERENTIAL AND PLAN: Acute hypoxic respiratory failure likely 2/2 to volume overload +/- multifocal PNA - lasix 20mg IV today, with significant UOP - follow up TTE - Cefepime day 2 - procal is 0.55 - sputum culture - MRSA screen- negative - neg RVP on 4-7 -legionella antigen - negative - BC NGTD x2 ROBINSON c/w ishcemic ATN, post obstructive ROBINSON- creatinine improving - lasix 20mg x1 today - appreciate input from nephro - avoid nephrotoxins - strict I and O - maintain yin -MAP >65, getting blood today, no IVF Metabolic acidosis from ARF -c02 on BMP increase form 15 to 18- improvement in metabolic acidsosis -ctw oral bicarb -Neuro consult- ?MS workup (Acute urinary retention, unsteady gait, frequent falls) - IR LP ordered - MRI ordered - appreciate neurology input Acute urinary retention, unsteady gait, frequent falls - urology consulted -voiding trial tomorrow with timed voiding and checking residuals. If se empties well then we can avoid longer term catheter use. - start timed void every hour or two while awake and void twice in the morning and in the evening. Symptomatic anemia with elevated BUN - possible GIB, chronic slow, trend HGB - hgb stable after 1uPRBC on 09/30 - check iron panel, b12, folic acid - monitor I and O - wean oxygen as tolerated Malnutrition - appreciate recs from GI nutrition clinic - 24 hour TPN Hyperglycemia - continue ISS per nutrition Continue PT and OT Nutrition, Pharmacy, Psych consulted Other home medications as directed. Adult TPN central IV + Thiamine +Zinc + Octreotide Albuterol Sulfate (Proventil) (2.5 MG/3ML) 0.083% inhalation solution 2.5 mg cefepime in dextrose (Maxipime) ivpb 1 g Ventilation Method: Acute Non-Invasive --- PEEP/EPAP/CPAP: 5 --- Changes Per Adult Protocol: Yes AND oxygen GAS sodium bicarbonate tab 1,300 mg Cholestyramine Light (Prevalite) oral powder 4 g oxyCODONE (Oxy IR) tab 5 mg Vitamin E (Aquasol E) cap 400 Units Simethicone (Mylicon) chew tab 80 mg diphenoxylate-atropine 2.5-0.025 mg per tab (Lomotil) 2 Tablet traMADol (Ultram) tab 50 mg Ferrous Sulfate (Feosol) tab 325 mg Vitamin C (Ascorbic Acid) tab 250 mg ALPRAZolam (xaNAX) tab 0.25 mg Docusate Sodium (Colace) cap 100 mg promethazine (Phenergan) tab 25 mg SUMAtriptan (Imitrex) tab 50 mg ybhaavixng-haarvbmmfvtei-dtscytdd 50-325-40 mg per tab (Fioricet) 1 Tablet Calcitriol (Rocaltrol) cap 0.25 mcg dicyclomine (Bentyl) cap 20 mg DULoxetine (Cymbalta) DR cap 120 mg Ergocalciferol (Vitamin D2(Drisdol)) cap 50,000 Units Lidocaine (Aspercreme) 4 % patch 1 Patch mirtazapine ODT (Remeron Soltab) tab 45 mg Nicotine (Nicoderm CQ) 21 MG/24HR patch 1 Patch OLANZapine ODT (zyPREXA zyDIS) tab 5 mg omeprazole (PriLOSEC) cap 20 mg ondansetron ODT (Zofran) tab 4 mg Pregabalin (Lyrica) cap 25 mg QUEtiapine (SEROquel) tab 50 mg sodium chloride 0.9 % flush central line 10 mL sodium chloride 0.9 % flush/inj 3 mL Orders Placed This Encounter Procedures NPO PHARMACOLOGIC VTE PROPHYLAXIS: This patient does not have an active medication from one of the medication groupers. CODE STATUS: No Code EXPECTED DISCHARGE DATE: 10/04/2023 I spent a total of 55 minutes coordinating, documenting, and providing care for this patient excluding time spent in the performance of separately billed services. * Yifan Ryan RN - 10/01/2023 11:57 PM EDT Nursing Critical Care Response Note [facility] [address] Name: Chandrika Grider Mykel Date: 10/01/2023 Time: 11:57 PM Event Location: [facility], Unit Area: 5A In the role of the Critical Response Nurse I was involved in the care of this patient. Method of notification to the critical care response nurse: Rounding on this unit Unit call/request for assistance Reason for notification or follow up: Respiratory distress Observations/Interventions/Assessment: Chart review and rounding on unit. Pt labored with RR 32. Complaining of SOB. R lung crackles and exp wheezes. SpO2 91% on 5L NC. Discussed worsening resp status with weigh and charge worker and primary RN. Recommened contacting provider. Suggested breathing treatment and CXR? CXR and breathing treatment ordered. Primary nurse contacted CRN role via TT for concerns about pt. Pt reported to be sating 86% on 5LNC. This nurse at bedside to assess pt. Increased O2 to 6L NC and sating 88%. RR 36 and labored. Contacted critical care provider and hospitalist with changes. Both providers at bedside to assess pt. CXR appears to be worse. Plan for continuous SpO2 and bipap. ABG ordered. pO2 68. Plan for repeat abgat 0600. Outcome/Plan Continue to follow up with this pt due to resp distress and possibility of declining. Please contact us if any concerns arise. * Jess Carranza MD - 10/01/2023 7:51 AM EDT Images from the original note were not included. [facility] 5A-5105/W INTERVAL HISTORY: 58yF w/ PMHX significant for on home TPN, wt loss, gastric bypass status, MDD, bipolar and malabsorption here with multifocal pneumonia, synmptomatic anemia, weight loss and failure to thrive. -Overnight w/ worsening acute respiratory failure with hypxia with chest x-ray results last night concerning for ARDS -Patient also had Yin catheter placed within last 24 hours due to urinary retention -Transfuse 1UPRBC - CC evaluted patient Subjective: Intake/Output Summary (Last 24 hours) at 10/01/2023 0938 Last data filed at 10/01/2023 0651 Gross per 24 hour Intake 2503.99 ml Output 4450 ml Net -1946.01 ml Objective Physical Exam Most Recent Vital Signs: BP: 98 mmHg/68 mmHg (10/01/23712) Pulse: 98 (10/01/23712) Temp: 36.61 C (10/01/23712) Temp Summary: Temp Min: 36 C (96.8 F) Max: 37.1 C (98.8 F) SpO2: 96 % (10/01/23712) O2 flow rate: 4 L/MIN (10/01/23 0403) Supplemental O2 Delivery: Nasal Cannula (10/01/23712) BP 98/68 | Pulse 98 | Temp 36.6 C (97.9 F) (Temporal Artery) | Resp 18 | Ht 1.499 m (4' 11") | Wt 43.8 kg (96 lb 8 oz) | LMP 04/05/2007 | SpO2 96% | BMI 19.49 kg/m | BSA 1.35 m Vitals reviewed over last 24 hours General: thin female, breathing comfortably at rest in bed, appropriately and pleasantly conversant HEEN: EOMI, no scleral icterus NECK: no stridor, no JVD PULM:coarse bilateral rhonchi, no respiratory distress, no tachypnea CVS: tachyRR, no mumurs, no rubs, no gallops, cap refil<2sec ABD: soft, NT, ND +BS, no rebound, no guarding EXT: WWP, no peripheral edema Yin in place TPN infusing through PORT Neuro:alert and oriented x3, CN 2-12 grossly intact, Psych: normal mood and affect Urethral Catheter Regular catheter (Active) Number of days: 1 Tunneled Central Cath Double Lumen Left Chest (Active) Number of days: 296 STUDIES: Encounter Orders Labs and other studies reviewed with pertinent findings noted below: Recent Results (from the past 24 hour(s)) GLUCOSE METER, POINT OF CARE Collection Time: 09/30/23 11:58 AM Result Value Ref Range Glucose Meter 99 70 - 120 mg/dL GLUCOSE METER, POINT OF CARE Collection Time: 09/30/23 6:41 PM Result Value Ref Range Glucose Meter 185 (H) 70 - 120 mg/dL TROPONIN T, HIGH SENSITIVITY Collection Time: 10/01/23 12:07 AM Result Value Ref Range Troponin T, High Sensitivity 41 (H) <=14 ng/L GLUCOSE METER, POINT OF CARE Collection Time: 10/01/23 12:32 AM Result Value Ref Range Glucose Meter 146 (H) 70 - 120 mg/dL RESPIRATORY PATHOGEN PANEL, PCR Collection Time: 10/01/23 3:53 AM Result Value Ref Range Adenovirus by PCR Negative Negative Coronavirus 229E by PCR Negative Negative Coronavirus HKU1 by PCR Negative Negative Coronavirus NL63 by PCR Negative Negative Coronavirus OC43 by PCR Negative Negative Coronavirus SARS-CoV-2 by PCR Negative Negative Human Metapneumovirus by PCR Negative Negative Rhinovirus/Enterovirus by PCR Negative Negative Influenza A Virus by PCR Negative Negative Influenza B Virus by PCR Negative Negative Parainfluenza Virus 1 by PCR Negative Negative Parainfluenza Virus 2 by PCR Negative Negative Parainfluenza Virus 3 by PCR Negative Negative Parainfluenza Virus 4 by PCR Negative Negative Respiratory Syncytial Virus by PCR Negative Negative Bordetella pertussis by PCR Negative Negative Chlamydia pneumoniae by PCR Negative Negative Mycoplasma pneumoniae by PCR Negative Negative Bordetella parapertussis by PCR Negative Negative PHOSPHORUS Collection Time: 10/01/23 4:39 AM Result Value Ref Range Phosphorus 3.6 2.5 - 4.8 mg/dL MAGNESIUM Collection Time: 10/01/23 4:39 AM Result Value Ref Range Magnesium 2.4 1.5 - 2.6 mg/dL BASIC METABOLIC PANEL Collection Time: 10/01/23 4:39 AM Result Value Ref Range BUN 92 (H) 6 - 20 mg/dL Creatinine 1.8 (H) 0.5 - 1.0 mg/dL Estimated Glomerular Filtration Rate 31 (L) >=60 mL/min Sodium 136 135 - 146 mmol/L Potassium 3.7 3.5 - 5.1 mmol/L Chloride 105 98 - 107 mmol/L CO2 15 (L) 22 - 32 mmol/L Anion Gap 16 (H) 7 - 15 mmol/L Glucose 171 (H) 70 - 120 mg/dL Calcium 8.3 (L) 8.4 - 10.2 mg/dL CBC Collection Time: 10/01/23 4:39 AM Result Value Ref Range WBC 17.65 (H) 4.00 - 10.80 K/uL RBC 2.33 3.85 - 5.15 M/uL HGB 7.6 (L) 12.0 - 15.3 g/dL HCT 23.5 (L) 36.0 - 45.2 % MCV 100.9 81.5 - 97.5 fL MCH 32.6 27.0 - 34.0 pg MCHC 32.3 32.0 - 36.0 g/dL RDW 14.0 11.5 - 15.5 % PLT 297 140 - 400 K/uL MPV 11.8 6.6 - 11.1 fL nRBCs 0 <=0 /100 WBCs BLOOD GAS, ARTERIAL Collection Time: 10/01/23 5:11 AM Result Value Ref Range Temperature 37.0 C pH, Arterial 7.343 (L) 7.350 - 7.450 units pCO2, Arterial 32.2 (L) 35.0 - 45.0 mmHg pO2, Arterial 80.2 75.0 - 100.0 mmHg Base Excess, Arterial -7.5 (L) -2.0 - 2.0 mmol/L HGB 7.1 (L) 12.0 - 15.3 g/dL Oxyhemoglobin, Arterial 90.0 (L) 94.0 - 99.0 % total Hgb Carboxyhemoglobin, Whole Blood 0.7 <=1.5 % total Hgb Methemoglobin, Whole Blood 2.7 (H) <=1.5 % total Hgb Reduced Hemoglobin, Arterial 6.6 (H) 0.0 - 5.0 % total Hgb O2 Content, Arterial 9.2 (L) 15.0 - 24.0 %vol FiO2 Not Provided % O2 Flow, Arterial 4 L/min Bicarbonate, Whole Blood 17.0 (L) 23.0 - 31.0 mmol/L LACTATE Collection Time: 10/01/23 5:37 AM Result Value Ref Range Lactate 0.9 0.4 - 2.0 mmol/L GLUCOSE METER, POINT OF CARE Collection Time: 10/01/23 6:15 AM Result Value Ref Range Glucose Meter 135 (H) 70 - 120 mg/dL CBC Collection Time: 10/01/23 7:36 AM Result Value Ref Range WBC 17.02 (H) 4.00 - 10.80 K/uL RBC 2.27 3.85 - 5.15 M/uL HGB 7.2 (L) 12.0 - 15.3 g/dL HCT 23.0 (L) 36.0 - 45.2 % MCV 101.3 81.5 - 97.5 fL MCH 31.7 27.0 - 34.0 pg MCHC 31.3 32.0 - 36.0 g/dL RDW 14.2 11.5 - 15.5 % PLT 289 140 - 400 K/uL MPV 11.8 6.6 - 11.1 fL nRBCs 0 <=0 /100 WBCs } Assessment and Plan IMPRESSION : Principal Problem: Failure to thrive in adult Active Problems: Anemia Intestinal postoperative nonabsorption Chronic pain syndrome Hereditary and idiopathic peripheral neuropathy Cachexia (HCC) On total parenteral nutrition (TPN) MDD (major depressive disorder), recurrent episode, moderate (HCC) Bipolar disorder (HCC) Tobacco abuse Fall at home Generalized weakness Adjustment disorder ROBINSON (acute kidney injury) (HCC) Urinary retention Hypoxia Multifocal pneumonia Resolved Problems: * No resolved hospital problems. * I have examined the patient and consistent with the dietitian's findings found malnutrition presentof Severe (09/21/23 1019) degree. This is consistent with such due to Fat loss;Muscle loss;Inadequate energy intake;Weight loss (09/21/23 1019). I have also reviewed and agree with the dietitian's plan of care which include Continued oral nutrition supplement;Nutrition support monitoring (09/30/23 1206). DIFFERENTIAL AND PLAN: Acute hypoxic respiratory failure likely 2/2 to volume overload +/- multifocal PNA - on 4L, wean as tolerated - check TTE- change in pump function? - started on cefepime last night- d2 abx - procal elevated 0.40 - monitor mental status - am cxr today - reviewed - sputum culture - MRSA screen - neg RVP on 4-7 ROBINSON c/w ishcemic ATN, post obstructive ROBINSON - appreciate input from nephro - avoid nephrotoxins - strict I and O - maintain yin -MAP >65, getting blood today, no IVF Metabolic acidosis from ARF -c02 is 15 on AM labs - oral bicarb Post-obstructive diuresis - patient is auto-diuresing since yin placed - strict I and O Acute urinary retention, unsteady gait, frequent falls - Neuro consult- ?MS workup - urology consulted Symptomatic anemia with elevated BUN - possible GIB, chronic slow - check iron panel, b12, folic acid - transfused 1 u today. - monitor I and O - wean oxygen as tolerated Continue PT and OT Nutrition, Pharmacy, Psych consulted Other home medications as directed. Adult TPN central IV + Thiamine +Zinc + Octreotide cefepime in dextrose (Maxipime) ivpb 1 g sodium bicarbonate tab 1,300 mg Cholestyramine Light (Prevalite) oral powder 4 g oxyCODONE (Oxy IR) tab 5 mg Vitamin E (Aquasol E) cap 400 Units Simethicone (Mylicon) chew tab 80 mg diphenoxylate-atropine 2.5-0.025 mg per tab (Lomotil) 2 Tablet traMADol (Ultram) tab 50 mg Ferrous Sulfate (Feosol) tab 325 mg Vitamin C (Ascorbic Acid) tab 250 mg ALPRAZolam (xaNAX) tab 0.25 mg Docusate Sodium (Colace) cap 100 mg promethazine (Phenergan) tab 25 mg SUMAtriptan (Imitrex) tab 50 mg pdezhoqbna-dcvebbkuttpvf-trqvkfbz 50-325-40 mg per tab (Fioricet) 1 Tablet Calcitriol (Rocaltrol) cap 0.25 mcg dicyclomine (Bentyl) cap 20 mg DULoxetine (Cymbalta) DR cap 120 mg Ergocalciferol (Vitamin D2(Drisdol)) cap 50,000 Units Lidocaine (Aspercreme) 4 % patch 1 Patch mirtazapine ODT (Remeron Soltab) tab 45 mg Nicotine (Nicoderm CQ) 21 MG/24HR patch 1 Patch OLANZapine ODT (zyPREXA zyDIS) tab 5 mg omeprazole (PriLOSEC) cap 20 mg ondansetron ODT (Zofran) tab 4 mg Pregabalin (Lyrica) cap 25 mg QUEtiapine (SEROquel) tab 50 mg sodium chloride 0.9 % flush central line 10 mL sodium chloride 0.9 % flush/inj 3 mL Orders Placed This Encounter Procedures Regular Diet PHARMACOLOGIC VTE PROPHYLAXIS: This patient does not have an active medication from one of the medication groupers. CODE STATUS: No Code EXPECTED DISCHARGE DATE: 10/03/2023 I spent a total of 55 minutes coordinating, documenting, and providing care for this patient excluding time spent in the performance of separately billed services. * Yifan Ryan RN - 10/01/2023 4:56 AM EDT Nursing Critical Care Response Note [facility]-[address] [address] Name: Chandrika Hogue Date: 10/01/2023 Time: 4:56 AM Event Location: [facility], Unit Area: 5A In the role of the Critical Response Nurse I was involved in the care of this patient. Method of notification to the critical care response nurse: Other: Hospitalist contacted critical care provider to assess pt Reason for notification or follow up: Respiratory distress Observations/Interventions/Assessment: Hospitalist contacted critical care physician to assess pt due to change in respiratory status. This nurse at bedside with critical care provider. Pt requiring 4L NC. Per primary nurse, pt was satingin low 80s on RA. Pt baseline is RA. CXR indicating possible ARDS, pneumonia, or edema. Lungs clearto auscultation. Plan for repeat CXR, morning labs, and abg. Outcome/Plan Follow up on pt due to possibility of respiratory decline. Please contact us if any concerns arise. * Kyler Teresa MD - 09/30/2023 3:40 PM EDT PROGRESS NOTE - Nephrology [facility]-[address] [address] Name: Chandrika Hogue Location: [facility] 5A-[id number]/W Date: 09/30/2023 Time: 3:40 PM SUBJECTIVE: making more urine. Feels bloated. CURRENT HOSPITAL MEDICATIONS: Reviewed OBJECTIVE: Most Recent Vital Signs: BP: 101 mmHg/57 mmHg (09/30/23 1502) Pulse: 104 (09/30/23 1502) Temp: 36.72 C (09/30/23 1502) Temp Summary: Temp Min: 35.8 C (96.4 F) Max: 36.8 C (98.2 F) SpO2: 91 % (09/30/23 1502) O2 flow rate: Supplemental O2 Delivery: Room Air, None (09/30/23 1502) Vital Signs last 24 Hours: Systolic BP: Most Recent Systolic BP Av.7 mmHg Min: 95 mmHg Max: 129 mmHg Temperature: Most Recent Temperature Av.5 C Min: 35.78 C Max: 36.78 C Pulse: Pulse Av.7 Min: 89 Max: 108 Respirations: Resp Av Min: 18 Max: 18 SpO2: SpO2 Av.6 % Min: 90 % Max: 97 % GENERAL: Awake, alert, in no acute distress. EYES: PERRL, conjunctivae anicteric. ENT: Mucous membranes moist, oropharynx clear. NECK: Supple, no JVD. LUNGS: Clear to auscultation bilaterally, no respiratory distress. CARDIAC: Regular rate and rhythm, normal S1/S2, no murmurs, rubs, or gallops. ABDOMEN: Soft, non-tender, non-distended, bowel sounds present. EXT/MSK: 1+ edema. SKIN: No rash, no jaundice. LABS: Reviewed ASSESSMENT/PLAN: This is a 58-year-old female with history of malnutrition on TPN since the gastric bypass, nephrolithiasis, right nephrectomy on 01/03/2023 due to chronic pain, stones and recurrent UTI who was admitted with failure to thrive. Her weight was down to 75 lb. She has been on continuous TPN and weight is now up to 97 lb. She is being seen for worsening renal function Plan: Acute kidney injury: Etiology is likely ischemic ATN due to persistent hypotension on admission. Her blood pressure runs low at baseline but significant drop in blood pressure noted on 09/25/2023. Patient is now off IV morphine. Blood pressure is the better. She is making urine increasing amount so that is a good sign. Has some edema and Feels very bloated with tight ring fingers. No need of moreiv fluid. No indication for dialysis. Metabolic acidosis. Patient has metabolic acidosis in setting of acute kidney injury. Patient needssodium bicarbonate supplements but unclear if she will tolerate them in setting of gastric bypass. continue Sodium bicarb tab. Will give one amp of Iv sodium bicarb. Also change to 1300 bid of Sodiumbicarb tab Kyler Teresa MD * Aris Bacon DO - 09/30/2023 3:11 PM EDT Images from the original note were not included. [facility] 5A-5105/W [facility] MEDICINE NOTE Summary Statement: Admission for wt loss and FTT. PMHX significant for on home TPN, wt loss, gastric bypass status, MDD, bipolar and malabsorption INTERVAL HISTORY: Chart and 24 hr vital signs reviewed. She remains on TPN. Nutrition fellow recommends fluid boluseswith bicarb. She has chronic abd pain. Renal US reviewed. Moderate hydronephrosis. Pelvic sono reviewed and wnl. Pt with 900ml post void residual. Yin cath in now. Diarrhea better. ROS: The patient denies CP, SOB, Orthopnea, [place] or chills. . As per HPI and all other systems reviewed and are negative or noncontributory. Adult TPN central IV Acetaminophen (Tylenol) tab 975 mg Cholestyramine Light (Prevalite) oral powder 4 g oxyCODONE (Oxy IR) tab 5 mg sodium bicarbonate tab 1,950 mg Vitamin E (Aquasol E) cap 400 Units Simethicone (Mylicon) chew tab 80 mg diphenoxylate-atropine 2.5-0.025 mg per tab (Lomotil) 2 Tablet traMADol (Ultram) tab 50 mg Ferrous Sulfate (Feosol) tab 325 mg Vitamin C (Ascorbic Acid) tab 250 mg ALPRAZolam (xaNAX) tab 0.25 mg Docusate Sodium (Colace) cap 100 mg promethazine (Phenergan) tab 25 mg SUMAtriptan (Imitrex) tab 50 mg sqwnewzpcl-asmzgmnyhpjzw-ykbixhgo 50-325-40 mg per tab (Fioricet) 1 Tablet Calcitriol (Rocaltrol) cap 0.25 mcg dicyclomine (Bentyl) cap 20 mg DULoxetine (Cymbalta) DR cap 120 mg Ergocalciferol (Vitamin D2(Drisdol)) cap 50,000 Units Lidocaine (Aspercreme) 4 % patch 1 Patch mirtazapine ODT (Remeron Soltab) tab 45 mg Nicotine (Nicoderm CQ) 21 MG/24HR patch 1 Patch OLANZapine ODT (zyPREXA zyDIS) tab 5 mg omeprazole (PriLOSEC) cap 20 mg ondansetron ODT (Zofran) tab 4 mg Pregabalin (Lyrica) cap 25 mg QUEtiapine (SEROquel) tab 50 mg sodium chloride 0.9 % flush central line 10 mL sodium chloride 0.9 % flush/inj 3 mL Objective Physical Exam Most Recent Vital Signs: BP 101/57 | Pulse 104 | Temp 36.7 C (98.1 F) (Temporal Artery) | Resp 18 | Ht 1.499 m (4' 11") | Wt 45.3 kg (99 lb 12.8 oz) | LMP 04/05/2007 | SpO2 91% | BMI 20.16 kg/m | BSA 1.37 m Intake/Output Summary (Last 24 hours) at 09/30/2023 1514 Last data filed at 09/30/2023 1425 Gross per 24 hour Intake 2487.92 ml Output 2100 ml Net 387.92 ml Wt Readings from Last 3 Encounters: 09/30/23 45.3 kg (99 lb 12.8 oz) 08/15/23 35.4 kg (78 lb) 06/20/23 34.5 kg (76 lb) General: alert, oriented x 3, cachetic Eyes: PERRLA, EOMI. Neck: supple, no adenopathy, no JVD Lungs: lungs clear to auscultation. Heart: RRR. No gallops. Abdomen: abdomen soft, diffuse mild tenderness, no mass, normal active bowel sounds. Bladder seems distended. Extremities: no c/c/e Neuro exam: No gross focal deficits Skin: warm, dry Urethral Catheter Regular catheter (Active) Number of days: 0 Tunneled Central Cath Double Lumen Left Chest (Active) Number of days: 295 STUDIES: Lab results within last 7 days (see chart for full results) Units 09/30/23 0424 09/29/23 0418 09/28/23 0513 Sodium mmol/L 135 136 136 Potassium mmol/L 4.5 4.8 4.7 Chloride mmol/L 106 106 107 CO2 mmol/L 13* 15* 16* BUN mg/dL 102* 91* 83* Creatinine mg/dL 2.2* 1.9* 1.6* Assessment and Plan IMPRESSION : Principal Problem: Failure to thrive in adult Active Problems: ROBINSON Urinary retention Intestinal postoperative nonabsorption Chronic pain syndrome Hereditary and idiopathic peripheral neuropathy Cachexia (HCC) On total parenteral nutrition (TPN) MDD (major depressive disorder), recurrent episode, moderate (HCC) Bipolar disorder (HCC) Tobacco abuse Fall at home Generalized weakness Adjustment disorder Resolved Problems: * No resolved hospital problems. * I have examined the patient and consistent with the dietitian's findings found malnutrition presentof Severe (09/21/23 1019) degree. This is consistent with such due to Fat loss;Muscle loss;Inadequate energy intake;Weight loss (09/21/23 1019). I have also reviewed and agree with the dietitian's plan of care which include Nutrition support monitoring;Continued oral nutrition supplement (09/26/23 1157). DIFFERENTIAL AND PLAN: Pt with progressive rise in Cre. Nephro on board, Renal US reviewed Pt now with urinary retention. Yin placed. Urology consult. Continue tramadol and oxy IR as needed. Limit opioids if possible Trend labs. Avoid nephrotoxins CM Consulted Continue PT and OT Nutrition, Pharmacy, Psych consulted Continue outpatient medications Increase activity She is at her goal TPN rate. Orders Placed This Encounter Procedures Regular Diet Note: To contact a physician responsible for this patients hospital care, please call [facility] [phone]. PHARMACOLOGIC VTE PROPHYLAXIS: This patient does not have an active medication from one of the medication groupers. CODE STATUS: No Code EXPECTED DISCHARGE DATE: 10/02/23 I spent a total of 56 minutes coordinating, documenting, and providing care for this patient excluding time spent in the performance of separately billed services. * Aris Bacon DO - 09/29/2023 9:39 PM EDT Images from the original note were not included. [facility] 5A-5105/W [facility] MEDICINE NOTE Summary Statement: Admission for wt loss and FTT. PMHX significant for on home TPN, wt loss, gastric bypass status, MDD, bipolar and malabsorption INTERVAL HISTORY: Chart and 24 hr vital signs reviewed. She remains on TPN. Nutrition fellow recommends fluid boluseswith bicarb. She has chronic abd pain. US reviewed. Pelvic sono reviewed and wnl. Feels lightheadedwhen standing today. Diarrhea worse. Cre creeping up. Creatinine Results: Lab Results Component Value Date/Time CREATININE - [facility] 1.9 (H) 09/29/2023 04:18 AM CREATININE - [facility] 1.6 (H) 09/28/2023 05:13 AM CREATININE - [facility] 1.6 (H) 09/27/2023 06:08 AM CREATININE - [facility] 1.0 07/16/2020 12:54 [...] AM CREATININE-OUTSIDE LAB 0.70 10/02/2020 12:00 AM ROS: The patient denies CP, SOB, Orthopnea, [place] or chills. No new voiding complaints. As per HPI and all other systems reviewed and are negative or noncontributory. Acetaminophen (Tylenol) tab 975 mg Adult TPN central IV [START ON 09/30/2023] Cholestyramine Light (Prevalite) oral powder 4 g oxyCODONE (Oxy IR) tab 5 mg sodium bicarbonate tab 1,950 mg Vitamin E (Aquasol E) cap 400 Units Simethicone (Mylicon) chew tab 80 mg diphenoxylate-atropine 2.5-0.025 mg per tab (Lomotil) 2 Tablet traMADol (Ultram) tab 50 mg Ferrous Sulfate (Feosol) tab 325 mg Vitamin C (Ascorbic Acid) tab 250 mg ALPRAZolam (xaNAX) tab 0.25 mg Docusate Sodium (Colace) cap 100 mg promethazine (Phenergan) tab 25 mg SUMAtriptan (Imitrex) tab 50 mg ctqmdlwlhu-ectbyokpdiywp-cpnnestq 50-325-40 mg per tab (Fioricet) 1 Tablet Calcitriol (Rocaltrol) cap 0.25 mcg dicyclomine (Bentyl) cap 20 mg DULoxetine (Cymbalta) DR cap 120 mg Ergocalciferol (Vitamin D2(Drisdol)) cap 50,000 Units Lidocaine (Aspercreme) 4 % patch 1 Patch mirtazapine ODT (Remeron Soltab) tab 45 mg Nicotine (Nicoderm CQ) 21 MG/24HR patch 1 Patch OLANZapine ODT (zyPREXA zyDIS) tab 5 mg omeprazole (PriLOSEC) cap 20 mg ondansetron ODT (Zofran) tab 4 mg Pregabalin (Lyrica) cap 25 mg QUEtiapine (SEROquel) tab 50 mg sodium chloride 0.9 % flush central line 10 mL sodium chloride 0.9 % flush/inj 3 mL Objective Physical Exam Most Recent Vital Signs: BP 125/110 | Pulse 98 | Temp 36.6 C (97.9 F) (Temporal Artery) | Resp 18 | Ht 1.499 m (4' 11") | Wt 44.3 kg (97 lb 11.2 oz) | LMP 04/05/2007 | SpO2 97% | BMI 19.73 kg/m | BSA 1.36 m Intake/Output Summary (Last 24 hours) at 09/29/20232139 Last data filed at 09/29/20232044 Gross per 24 hour Intake 3.13 ml Output -- Net 3.13 ml Wt Readings from Last 3 Encounters: 09/29/23 44.3 kg (97 lb 11.2 oz) 08/15/23 35.4 kg (78 lb) 06/20/23 34.5 kg (76 lb) General: alert, oriented x 3, cachetic Eyes: PERRLA, EOMI. Neck: supple, no adenopathy, no JVD Lungs: lungs clear to auscultation. Heart: RRR. No gallops. Abdomen: abdomen soft, diffuse mild tenderness, no mass, normal active bowel sounds. Extremities: no c/c/e Neuro exam: No gross focal deficits Skin: warm, dry Tunneled Central Cath Double Lumen Left Chest (Active) Number of days: 294 STUDIES: Lab results within last 7 days (see chart for full results) Units 09/29/23 0418 09/28/23 0513 09/27/23 0608 Sodium mmol/L 136 136 134* Potassium mmol/L 4.8 4.7 4.5 Chloride mmol/L 106 107 106 CO2 mmol/L 15* 16* 15* BUN mg/dL 91* 83* 83* Creatinine mg/dL 1.9* 1.6* 1.6* Assessment and Plan IMPRESSION : Principal Problem: Failure to thrive in adult Active Problems: ROBINSON Intestinal postoperative nonabsorption Chronic pain syndrome Hereditary and idiopathic peripheral neuropathy Cachexia (HCC) On total parenteral nutrition (TPN) MDD (major depressive disorder), recurrent episode, moderate (HCC) Bipolar disorder (HCC) Tobacco abuse Fall at home Generalized weakness Adjustment disorder Resolved Problems: * No resolved hospital problems. * I have examined the patient and consistent with the dietitian's findings found malnutrition presentof Severe (09/21/23 1019) degree. This is consistent with such due to Fat loss;Muscle loss;Inadequate energy intake;Weight loss (09/21/23 1019). I have also reviewed and agree with the dietitian's plan of care which include Nutrition support monitoring;Continued oral nutrition supplement (09/26/23 1157). DIFFERENTIAL AND PLAN: Pt with progressive rise in Cre. Consult Nephro, Renal US. Continue tramadol and oxy IR as needed Trend labs. Avoid nephrotoxins CM Consulted Continue PT and OT Nutrition, Pharmacy, Psych consulted Continue outpatient medications Increase activity She is at her goal TPN rate. Note: To contact a physician responsible for this patients hospital care, please call [facility] [phone]. PHARMACOLOGIC VTE PROPHYLAXIS: This patient does not have an active medication from one of the medication groupers. CODE STATUS: No Code EXPECTED DISCHARGE DATE: 10/02/23 I spent a total of 51 minutes coordinating, documenting, and providing care for this patient excluding time spent in the performance of separately billed services. * Daisy Fajardo, [facility] - 09/29/2023 10:57 AM EDT Images from the original note were not included. [facility]ARM[facility]Y PARENTERAL NUTRITION CONSULT [address] [address] Name: Chandrika Hogue Date: 09/29/2023 at 10:57 AM PN per Pharmacy TBW: 44.3 kg Height: 150 cm BMI: 19.73 kg/m2 Age: 58 years Diabetic?: no Central or peripheral administration?: central Current PN parameters: Total Kcal: 1370 (100 % goal) Fluid: 1500 ml (100 % goal) Macronutrients: Amino acids: 60 grams = 240 kcal (4 kcal/gram) = 100 % goal Carbohydrates: 200 grams = 680 kcal (3.4 kcal/gram) = 100 % goal Lipids: 45 grams = 450 kcal (10 kcal/gram) = 100 % goal Micronutrients Electrolytes Na: 40 meq K: 10 meq Phos: 0 mmol M meq Ca: 0 meq Acetate: 10 meq Cl: 40 meq Trace elements: 1 ml Provides Zinc 3 mg Copper 0.3 mg Manganese 55 mcg Selenium 60 mcg Infuvite multivitamin: 10 ml Thiamine 100 mg Octreotide 150 mcg Zince 5 mg Chloride to acetate ratio: 4 Dextrose mg/kg/min: 6.27 HOME TPN "RECIPE" -Resuming home TPN. -Using trace minerals; currently have no selenium, copper, zinc, or manganese. -Sodium acetate is on backorder; utilizing sodium chloride to provide some Na without administeringtoo much chloride. -Administering TPN daily -Will taper on to administering over 12 hours if patient tolerates. 24 hours today, 16 hours tomorrow, and then 12 hours. 09/21 -Decreased K -Increased phos and dextrose -will do 24 administration today due to increase in macros and will taper after that if patient is stable. 09/22 - D/w Dr. Boswell, d/t labs not being drawn will re-order same TPN regimen as yesterday over 24 hours (decreased potassium acetate from 40 mEq to 20 mEq) - Follow up on labs tomorrow - Update: K at 5.7, d/w nutrition and agree to take all K containing products out for today 09/23 - D/w Dr. Wilkerson regarding TPN, his is okay with adding back 40 mEq of potassium acetate, as well asincreasing protein to 65 g - Added thiamine 100 mg to bag (daily) per Dr. Wilkerson - Start to run over 16 hours tonight 09/24 -decreasing K, administer over 12 hours 09/25 -Remove phos, increase volume to 1500 ml, decrease amino acids to 60 grams, add 150 mcg octreotide 09/26 -sodium acetate is on backorder with no release date, adding and additional 5 mg of zinc, will notify attending that patient may require additional fluid boluses. 09/27 -continue same TPN. 09/28 -Decrease K, start vitamin E 400 PO daily Contact the Pharmacy at extension [phone] if there are any questions. * Aris Bacon DO - 09/28/2023 3:33 PM EDT Images from the original note were not included. [facility] 5A-5105/W [facility] MEDICINE NOTE Summary Statement: Admission for wt loss and FTT. PMHX significant for on home TPN, wt loss, gastric bypass status, MDD, bipolar and malabsorption INTERVAL HISTORY: Chart and 24 hr vital signs reviewed. She remains on TPN. Nutrition fellow recommends fluid boluseswith bicarb. She has chronic abd pain. US reviewed. Pelvic sono reviewed and wnl. Had some discomfort and itching around her central port. She wonders if the dressing can be changed ROS: The patient denies CP, SOB, Orthopnea, SMALL[place]OD or chills. No new voiding complaints. As per HPI and all other systems reviewed and are negative or noncontributory. 1/2 NSS 1,000 mL with sodium bicarbonate 75 mEq infusion Adult TPN central IV oxyCODONE (Oxy IR) tab 5 mg Simethicone (Mylicon) chew tab 80 mg diphenoxylate-atropine 2.5-0.025 mg per tab (Lomotil) 2 Tablet traMADol (Ultram) tab 50 mg Ferrous Sulfate (Feosol) tab 325 mg Vitamin C (Ascorbic Acid) tab 250 mg ALPRAZolam (xaNAX) tab 0.25 mg Docusate Sodium (Colace) cap 100 mg promethazine (Phenergan) tab 25 mg SUMAtriptan (Imitrex) tab 50 mg ruasimgedi-fqpoosdsvjbbq-vmtqbswv 50-325-40 mg per tab (Fioricet) 1 Tablet Acetaminophen (Tylenol) tab 650 mg Calcitriol (Rocaltrol) cap 0.25 mcg dicyclomine (Bentyl) cap 20 mg DULoxetine (Cymbalta) DR cap 120 mg Ergocalciferol (Vitamin D2(Drisdol)) cap 50,000 Units Lidocaine (Aspercreme) 4 % patch 1 Patch mirtazapine ODT (Remeron Soltab) tab 45 mg Nicotine (Nicoderm CQ) 21 MG/24HR patch 1 Patch OLANZapine ODT (zyPREXA zyDIS) tab 5 mg omeprazole (PriLOSEC) cap 20 mg ondansetron ODT (Zofran) tab 4 mg Pregabalin (Lyrica) cap 25 mg QUEtiapine (SEROquel) tab 50 mg sodium chloride 0.9 % flush central line 10 mL sodium chloride 0.9 % flush/inj 3 mL Objective Physical Exam Most Recent Vital Signs: BP 93/62 | Pulse 99 | Temp 36.4 C (97.6 F) (Temporal Artery) | Resp 18 | Ht 1.499 m (4' 11") | Wt 42.2 kg (93 lb) | LMP 04/05/2007 | SpO2 98% | BMI 18.78 kg/m | BSA 1.33 m Intake/Output Summary (Last 24 hours) at 09/28/2023 1534 Last data filed at 09/28/2023 1300 Gross per 24 hour Intake 2274.67 ml Output -- Net 2274.67 ml Wt Readings from Last 3 Encounters: 09/28/23 42.2 kg (93 lb) 08/15/23 35.4 kg (78 lb) 06/20/23 34.5 kg (76 lb) General: alert, oriented x 3, cachetic Eyes: PERRLA, EOMI. Neck: supple, no adenopathy, no JVD Lungs: lungs clear to auscultation. Heart: RRR. No gallops. Abdomen: abdomen soft, diffuse mild tenderness, no mass, normal active bowel sounds. Extremities: no c/c/e Neuro exam: No gross focal deficits Skin: warm, dry Tunneled Central Cath Double Lumen Left Chest (Active) Number of days: 293 STUDIES: Lab results within last 7 days (see chart for full results) Units 09/28/23 0513 09/27/23 0608 09/26/23 0644 Sodium mmol/L 136 134* 137 Potassium mmol/L 4.7 4.5 4.5 Chloride mmol/L 107 106 107 CO2 mmol/L 16* 15* 15* BUN mg/dL 83* 83* 82* Creatinine mg/dL 1.6* 1.6* 1.5* Latest Reference Range & Units Most Recent Sodium 135 - 146 mmol/L 136 09/28/23 05:13 Potassium 3.5 - 5.1 mmol/L 4.7 09/28/23 05:13 Chloride 98 - 107 mmol/L 107 09/28/23 05:13 CO2 22 - 32 mmol/L 16 (L) 09/28/23 05:13 BUN 6 - 20 mg/dL 83 (H) 09/28/23 05:13 Creatinine 0.5 - 1.0 mg/dL 1.6 (H) 09/28/23 05:13 Estimated Glomerular Filtration Rate >=60 mL/min 37 (L) 09/28/23 05:13 Anion Gap 7 - 15 mmol/L 13 09/28/23 05:13 Glucose 70 - 120 mg/dL 118 09/28/23 05:13 Calcium 8.4 - 10.2 mg/dL 8.4 09/28/23 05:13 Calcium, Ionized 1.13 - 1.32 mmol/L 1.27 09/27/23 06:08 Magnesium 1.5 - 2.6 mg/dL 2.6 09/28/23 05:13 Phosphorus 2.5 - 4.8 mg/dL 4.3 09/28/23 05:13 Protein 6.0 - 8.3 g/dL 5.8 (L) 09/27/23 06:08 Folic Acid >4.5 ng/mL 8.2 09/22/23 08:32 Vitamin A (Retinol) 38 - 98 mcg/dL 51 09/23/23 12:51 ZINC 60 - 130 mcg/dL 38 (L) 09/23/23 12:53 COPPER 70 - 175 mcg/dL 85 09/23/23 12:53 (L): Data is abnormally low (H): Data is abnormally high Assessment and Plan IMPRESSION : Principal Problem: Failure to thrive in adult Active Problems: Intestinal postoperative nonabsorption Chronic pain syndrome Hereditary and idiopathic peripheral neuropathy Cachexia (HCC) On total parenteral nutrition (TPN) MDD (major depressive disorder), recurrent episode, moderate (HCC) Bipolar disorder (HCC) Tobacco abuse Fall at home Generalized weakness Adjustment disorder Resolved Problems: * No resolved hospital problems. * I have examined the patient and consistent with the dietitian's findings found malnutrition presentof Severe (09/21/23 1019) degree. This is consistent with such due to Fat loss;Muscle loss;Inadequate energy intake;Weight loss (09/21/23 1019). I have also reviewed and agree with the dietitian's plan of care which include Nutrition support monitoring;Continued oral nutrition supplement (09/26/23 1157). DIFFERENTIAL AND PLAN: IVF boluses with bicarb per nutrition fellow Continue tramadol and oxy IR as needed Trend labs CM Consulted Continue PT and OT Nutrition, Pharmacy, Psych consulted Continue outpatient medications Increase activity She is at her goal TPN rate. Plan for possible discharge tomorrow. Note: To contact a physician responsible for this patients hospital care, please call [facility] [phone]. PHARMACOLOGIC VTE PROPHYLAXIS: This patient does not have an active medication from one of the medication groupers. CODE STATUS: No Code EXPECTED DISCHARGE DATE: 09/29/23 I spent a total of 50 minutes coordinating, documenting, and providing care for this patient excluding time spent in the performance of separately billed services. * Tj Park [facility] - 09/28/2023 10:47 AM EDT Images from the original note were not included. PHARMACY PARENTERAL NUTRITION CONSULT [facility] [address] Name: Chandrika Hogue Date: 09/28/2023 at 10:47 AM PN per Pharmacy TBW: 37 kg Height: 150 cm BMI: 16.66 kg/m2 Age: 58 years Diabetic?: no Central or peripheral administration?: central Current PN parameters: Total Kcal: 1370 (100 % goal) Fluid: 1500 ml (100 % goal) Macronutrients: Amino acids: 60 grams = 240 kcal (4 kcal/gram) = 100 % goal Carbohydrates: 200 grams = 680 kcal (3.4 kcal/gram) = 100 % goal Lipids: 45 grams = 450 kcal (10 kcal/gram) = 100 % goal Micronutrients Electrolytes Na: 40 meq K: 20 meq Phos: 0 mmol M meq Ca: 0 meq Acetate: 20 meq Cl: 40 meq Trace elements: 1 ml Provides Zinc 3 mg Copper 0.3 mg Manganese 55 mcg Selenium 60 mcg Infuvite multivitamin: 10 ml Thiamine 100 mg Octreotide 150 mcg Zince 5 mg Chloride to acetate ratio: 2 Dextrose mg/kg/min: 7.07 HOME TPN "RECIPE" -Resuming home TPN. -Using trace minerals; currently have no selenium, copper, zinc, or manganese. -Sodium acetate is on backorder; utilizing sodium chloride to provide some Na without administeringtoo much chloride. -Administering TPN daily -Will taper on to administering over 12 hours if patient tolerates. 24 hours today, 16 hours tomorrow, and then 12 hours. 09/21 -Decreased K -Increased phos and dextrose -will do 24 administration today due to increase in macros and will taper after that if patient is stable. 09/22 - D/w Dr. Boswell, d/t labs not being drawn will re-order same TPN regimen as yesterday over 24 hours (decreased potassium acetate from 40 mEq to 20 mEq) - Follow up on labs tomorrow - Update: K at 5.7, d/w nutrition and agree to take all K containing products out for today 09/23 - D/w Dr. Wilkerson regarding TPN, his is okay with adding back 40 mEq of potassium acetate, as well asincreasing protein to 65 g - Added thiamine 100 mg to bag (daily) per Dr. Wilkerson - Start to run over 16 hours tonight 09/24 -decreasing K, administer over 12 hours 09/25 -Remove phos, increase volume to 1500 ml, decrease amino acids to 60 grams, add 150 mcg octreotide 09/26 -sodium acetate is on backorder with no release date, adding and additional 5 mg of zinc, will notify attending that patient may require additional fluid boluses. 09/27 -continue same TPN. Contact the Pharmacy at extension [phone] if there are any questions. * Aris Bacon DO - 09/27/2023 2:55 PM EDT Images from the original note were not included. [facility] 5A-5105/[facility]ICINE NOTE Summary Statement: Admission for wt loss and FTT. PMHX significant for on home TPN, wt loss, gastric bypass status, MDD, bipolar and malabsorption INTERVAL HISTORY: Chart, data and vital signs reviewed. Current medication list reviewed. Patient seen with nursing care team. She remains on TPN. Nutrition fellow recommends fluid boluses. She has chronic abd pain. US reviewed. Pelvic sono recommended ROS: The patient denies CP, SOB, Orthopnea, SMALLWOOD or chills. No new voiding complaints. As per HPI and all other systems reviewed and are negative or noncontributory. Adult TPN central IV isolyte-S pH 7.4 infusion Simethicone (Mylicon) chew tab 80 mg diphenoxylate-atropine 2.5-0.025 mg per tab (Lomotil) 2 Tablet traMADol (Ultram) tab 50 mg Ferrous Sulfate (Feosol) tab 325 mg Vitamin C (Ascorbic Acid) tab 250 mg ALPRAZolam (xaNAX) tab 0.25 mg Docusate Sodium (Colace) cap 100 mg promethazine (Phenergan) tab 25 mg SUMAtriptan (Imitrex) tab 50 mg wvbchbwfcq-swzzgpzkhltom-iltapltn 50-325-40 mg per tab (Fioricet) 1 Tablet Acetaminophen (Tylenol) tab 650 mg Calcitriol (Rocaltrol) cap 0.25 mcg dicyclomine (Bentyl) cap 20 mg DULoxetine (Cymbalta) DR cap 120 mg Ergocalciferol (Vitamin D2(Drisdol)) cap 50,000 Units Lidocaine (Aspercreme) 4 % patch 1 Patch mirtazapine ODT (Remeron Soltab) tab 45 mg Nicotine (Nicoderm CQ) 21 MG/24HR patch 1 Patch OLANZapine ODT (zyPREXA zyDIS) tab 5 mg omeprazole (PriLOSEC) cap 20 mg ondansetron ODT (Zofran) tab 4 mg Pregabalin (Lyrica) cap 25 mg QUEtiapine (SEROquel) tab 50 mg sodium chloride 0.9 % flush central line 10 mL sodium chloride 0.9 % flush/inj 3 mL Objective Physical Exam Most Recent Vital Signs: BP: 106 mmHg/72 mmHg (09/27/231043) Pulse: 103 (09/27/231043) Temp: 36.61 C (09/27/231043) Temp Summary: Temp Min: 36.1 C (97 F) Max: 36.6 C (97.9 F) SpO2: 95 % (09/27/231043) O2 flow rate: Supplemental O2 Delivery: Room Air, None (09/27/231043) Intake/Output Summary (Last 24 hours) at 09/27/2023 1456 Last data filed at 09/27/2023 0900 Gross per 24 hour Intake 1840.52 ml Output -- Net 1840.52 ml Wt Readings from Last 3 Encounters: 09/27/23 41.1 kg (90 lb 8 oz) 08/15/23 35.4 kg (78 lb) 06/20/23 34.5 kg (76 lb) General: alert, oriented x 3, cachetic Eyes: PERRLA, EOMI. Conjunctiva are pink and non-injected. Oropharynx: no exudate, no erythema; membranes are moist Neck: supple, no adenopathy, no JVD Lungs: lungs clear to auscultation. Heart: RRR. No gallops. Abdomen: abdomen soft, diffuse mild tenderness, no mass, normal active bowel sounds. Extremities: no c/c/e Neuro exam: No gross focal deficits Skin: warm, dry Tunneled Central Cath Double Lumen Left Chest (Active) Number of days: 292 STUDIES: Lab results within last 7 days (see chart for full results) Units 09/27/23 0608 09/26/23 0644 09/25/23 0637 Sodium mmol/L 134* 137 139 Potassium mmol/L 4.5 4.5 4.5 Chloride mmol/L 106 107 110* CO2 mmol/L 15* 15* 16* BUN mg/dL 83* 82* 66* Creatinine mg/dL 1.6* 1.5* 1.2* Lab results within last 7 days (see chart for full results) Units 09/21/23 1128 HGB g/dL 9.3* HCT % 29.8* WBC K/uL 5.66 PLT K/uL 330 Assessment and Plan IMPRESSION : Principal Problem: Failure to thrive in adult Active Problems: Intestinal postoperative nonabsorption Chronic pain syndrome Hereditary and idiopathic peripheral neuropathy Cachexia (HCC) On total parenteral nutrition (TPN) MDD (major depressive disorder), recurrent episode, moderate (HCC) Bipolar disorder (HCC) Tobacco abuse Fall at home Generalized weakness Adjustment disorder Resolved Problems: * No resolved hospital problems. * I have examined the patient and consistent with the dietitian's findings found malnutrition presentof Severe (09/21/23 1019) degree. This is consistent with such due to Fat loss;Muscle loss;Inadequate energy intake;Weight loss (09/21/23 1019). I have also reviewed and agree with the dietitian's plan of care which include Nutrition support monitoring;Continued oral nutrition supplement (09/26/23 1157). DIFFERENTIAL AND PLAN: IVF boluses per nutrition fellow Continue IV antibiotics Cultures are pending Continue tramadol Trend labs CM Consult Continue PT and OT Nutrition, Pharmacy, Psych consulted Continue outpatient medications Increase activity She is at her goal TPN rate Note: To contact a physician responsible for this patients hospital care, please call [facility] [phone]. PHARMACOLOGIC VTE PROPHYLAXIS: This patient does not have an active medication from one of the medication groupers. CODE STATUS: No Code EXPECTED DISCHARGE DATE: 09/28/23 I spent a total of 55 minutes coordinating, documenting, and providing care for this patient excluding time spent in the performance of separately billed services. * Tj Park RP - 09/27/2023 11:11 AM EDT Images from the original note were not included. PHARMACY PARENTERAL NUTRITION CONSULT [address] [address] Name: Chandrika Hogue Date: 09/27/2023 at 11:11 AM PN per Pharmacy TBW: 37 kg Height: 150 cm BMI: 16.66 kg/m2 Age: 58 years Diabetic?: no Central or peripheral administration?: central Current PN parameters: Total Kcal: 1370 (100 % goal) Fluid: 1500 ml (100 % goal) Macronutrients: Amino acids: 60 grams = 240 kcal (4 kcal/gram) = 100 % goal Carbohydrates: 200 grams = 680 kcal (3.4 kcal/gram) = 100 % goal Lipids: 45 grams = 450 kcal (10 kcal/gram) = 100 % goal Micronutrients Electrolytes Na: 40 meq K: 20 meq Phos: 0 mmol M meq Ca: 0 meq Acetate: 20 meq Cl: 40 meq Trace elements: 1 ml Provides Zinc 3 mg Copper 0.3 mg Manganese 55 mcg Selenium 60 mcg Infuvite multivitamin: 10 ml Thiamine 100 mg Octreotide 150 mcg Zince 5 mg Chloride to acetate ratio: 2 Dextrose mg/kg/min: 7.07 HOME TPN "RECIPE" -Resuming home TPN. -Using trace minerals; currently have no selenium, copper, zinc, or manganese. -Sodium acetate is on backorder; utilizing sodium chloride to provide some Na without administeringtoo much chloride. -Administering TPN daily -Will taper on to administering over 12 hours if patient tolerates. 24 hours today, 16 hours tomorrow, and then 12 hours. 09/21 -Decreased K -Increased phos and dextrose -will do 24 administration today due to increase in macros and will taper after that if patient is stable. 09/22 - D/w Dr. Boswell, d/t labs not being drawn will re-order same TPN regimen as yesterday over 24 hours (decreased potassium acetate from 40 mEq to 20 mEq) - Follow up on labs tomorrow - Update: K at 5.7, d/w nutrition and agree to take all K containing products out for today 09/23 - D/w Dr. Wilkerson regarding TPN, his is okay with adding back 40 mEq of potassium acetate, as well asincreasing protein to 65 g - Added thiamine 100 mg to bag (daily) per Dr. Wilkerson - Start to run over 16 hours tonight 09/24 -decreasing K, administer over 12 hours 09/25 -Remove phos, increase volume to 1500 ml, decrease amino acids to 60 grams, add 150 mcg octreotide 09/26 -sodium acetate is on backorder with no release date, adding and additional 5 mg of zinc, will notify attending that patient may require additional fluid boluses. Contact the Pharmacy at extension [phone] if there are any questions. * Tj Park [facility] - 09/26/2023 11:57 AM EDT Images from the original note were not included. PHARMACY PARENTERAL NUTRITION CONSULT [address] [address] Name: Chandrika Hogue Date: 09/26/2023 at 11:57 AM PN per Pharmacy TBW: 37 kg Height: 150 cm BMI: 16.66 kg/m2 Age: 58 years Diabetic?: no Central or peripheral administration?: central Current PN parameters: Total Kcal: 1370 (100 % goal) Fluid: 1500 ml (100 % goal) Macronutrients: Amino acids: 60 grams = 240 kcal (4 kcal/gram) = 100 % goal Carbohydrates: 200 grams = 680 kcal (3.4 kcal/gram) = 100 % goal Lipids: 45 grams = 450 kcal (10 kcal/gram) = 100 % goal Micronutrients Electrolytes Na: 40 meq K: 20 meq Phos: 0 mmol M meq Ca: 0 meq Acetate: 20 meq Cl: 40 meq Trace elements: 1 ml Provides Zinc 3 mg Copper 0.3 mg Manganese 55 mcg Selenium 60 mcg Infuvite multivitamin: 10 ml Thiamine 100 mg Octreotide 150 mcg Chloride to acetate ratio: 2 Dextrose mg/kg/min: 7.07 HOME TPN "RECIPE" -Resuming home TPN. -Using trace minerals; currently have no selenium, copper, zinc, or manganese. -Sodium acetate is on backorder; utilizing sodium chloride to provide some Na without administeringtoo much chloride. -Administering TPN daily -Will taper on to administering over 12 hours if patient tolerates. 24 hours today, 16 hours tomorrow, and then 12 hours. 09/21 -Decreased K -Increased phos and dextrose -will do 24 administration today due to increase in macros and will taper after that if patient is stable. 09/22 - D/w Dr. Boswell, d/t labs not being drawn will re-order same TPN regimen as yesterday over 24 hours (decreased potassium acetate from 40 mEq to 20 mEq) - Follow up on labs tomorrow - Update: K at 5.7, d/w nutrition and agree to take all K containing products out for today 09/23 - D/w Dr. Wilkerson regarding TPN, his is okay with adding back 40 mEq of potassium acetate, as well asincreasing protein to 65 g - Added thiamine 100 mg to bag (daily) per Dr. Wilkerson - Start to run over 16 hours tonight 09/24 -decreasing K, administer over 12 hours 09/25 -Remove phos, increase volume to 1500 ml, decrease amino acids to 60 grams, add 150 mcg octreotide Contact the Pharmacy at extension [phone] if there are any questions. * Wilner Gross MD - 09/26/2023 9:58 AM EDT Images from the original note were not included. [facility] 5A-5105/W INTERVAL HISTORY: 58 year old female who presented to [facility] 09/20/2023 for planned, direct admission accepted by Dr. Sabina Larsen on 09/19/2023 for failure to thrive. According to available records, patient, and correspondence from Dr. Larsen regarding admission, patient has been using TPN at home three days per week for 12hours each session but continues to lose weight. Patient reports that she had been 90 lbs, then dropped to 80 lbs, and currently 73 lbs. She noted that she started TPN at home around 80 lbs. She was doing it for 12 hours five times per week. In continued follow-up with Dr. Wilkerson and nutritional support team, she noted that she had "no life" because she comes home from work then has to get hooked up to TPN for 12 hours and cannot go out anywhere. Because of this she notes that she decreased the TPN to just three times per week on MWF. There is some concern that she has not been compliant with this regimen. She states that she does take PO as she is able/hungry but continues to lose weight, has increasing weakness, LE edema at times, and has also been falling at home with the increased weakn ess. As per Dr. Wilkerson, she is to be admitted for daily TPN which is resumption of this modality andconcern for refeeding syndrome with restarting therapy. Patient is in agreement for plan with d/c plan to resume TPN 12 hours three times per week. 1409 Spoke with pharmacist, Guillermo Park. Labs ordered to start tomorrow, today's TPN ordered to start this evening, pharmacy detailed note in chart with plan to do 24 hours TPN today, 16 tomorrow, Monday then resume her MWF 12 hour schedule and d/c to home. Per pt And September 13 telemedicine note, patient is to be admitted for about a week Patient reports some fatigue. She is refusing blood draws and will only allow blood draws through her port. Patient states that if she has not able to gain weight with this intervention, she states she is "done with TPN" Nursing reports that pt is stating she is "done with living." Psychiatry evaluated the patient. No need for inpatient psych treatment and outpatient follow-up isappropriate. No changes in medications. No need for one-to-one sitter. Some nausea would like p.r.n. Phenergan. Nausea now controlled Some back pain, wants more morphine Objective Physical Exam Most Recent Vital Signs: BP: 100 mmHg/57 mmHg (09/26/23736) Pulse: 108 (09/26/23736) Temp: 36.61 C (09/26/23736) Temp Summary: Temp Min: 36.3 C (97.3 F) Max: 36.6 C (97.9 F) SpO2: 95 % (09/26/23736) O2 flow rate: Supplemental O2 Delivery: Room Air, None (09/26/23736) Physical Exam Vitals and nursing note reviewed. Exam conducted with a leak hunter present. Constitutional: Appearance: Normal appearance. She is cachectic. Comments: Chronically ill Cardiovascular: Rate and Rhythm: Normal rate and regular rhythm. Pulses: Normal pulses. Heart sounds: Normal heart sounds. No murmur heard. No friction rub. No gallop. Pulmonary: Effort: Pulmonary effort is normal. No respiratory distress. Breath sounds: Normal breath sounds. No wheezing, rhonchi or rales. Abdominal: General: Abdomen is flat. Bowel sounds are normal. Palpations: Abdomen is soft. Musculoskeletal: Right lower leg: No edema. Left lower leg: No edema. Skin: General: Skin is warm and dry. Capillary Refill: Capillary refill takes less than 2 seconds. Neurological: General: No focal deficit present. Mental Status: She is alert and oriented to person, place, and time. Tunneled Central Cath Double Lumen Left Chest (Active) Number of days: 291 STUDIES: Encounter Orders Labs and other studies reviewed with pertinent findings noted below: Lab results within last 7 days (see chart for full results) Units 09/21/23 1128 HGB g/dL 9.3* HCT % 29.8* WBC K/uL 5.66 PLT K/uL 330 Lab results within last 7 days (see chart for full results) Units 09/26/23 0644 09/25/23 0637 09/24/23 0534 Sodium mmol/L 137 139 136 Potassium mmol/L 4.5 4.5 4.4 Chloride mmol/L 107 110* 110* CO2 mmol/L 15* 16* 17* BUN mg/dL 82* 66* 47* Creatinine mg/dL 1.5* 1.2* 1.0 Assessment and Plan IMPRESSION : Principal Problem: Failure to thrive in adult Active Problems: Intestinal postoperative nonabsorption Chronic pain syndrome Hereditary and idiopathic peripheral neuropathy Cachexia (HCC) On total parenteral nutrition (TPN) MDD (major depressive disorder), recurrent episode, moderate (HCC) Bipolar disorder (HCC) Tobacco abuse Fall at home Generalized weakness Adjustment disorder Resolved Problems: * No resolved hospital problems. * I have examined the patient and consistent with the dietitian's findings found malnutrition presentof Severe (09/21/23 1019) degree. This is consistent with such due to Fat loss;Muscle loss;Inadequate energy intake;Weight loss (09/21/23 1019). I have also reviewed and agree with the dietitian's plan of care which include Nutrition support monitoring;Oral nutritional supplement ordered/adjusted (09/21/23 1019). DIFFERENTIAL AND PLAN: 58-year-old with past medical hisory of depression, cachexia, intestinal post operative nonabsorption, chronic pain, neuropathy, bipolar, severe malnutrition on outpatient TPN who was admitted for failure to thrive and inpatient TPN Nutrition consult Pharmacy consult for TPN Monitor for refeeding syndrome with daily lab Okay to use port for blood draws (will need daily order) Psychiatry help appreciated. Gi nutrition help appreciated. D/c morphine, Start tramadol Continue current meds traMADol (Ultram) tab 50 mg Ferrous Sulfate (Feosol) tab 325 mg Vitamin C (Ascorbic Acid) tab 250 mg ALPRAZolam (xaNAX) tab 0.25 mg Docusate Sodium (Colace) cap 100 mg promethazine (Phenergan) tab 25 mg SUMAtriptan (Imitrex) tab 50 mg ykdodqeuyr-zeqqmtvbigsrz-qznyeknl 50-325-40 mg per tab (Fioricet) 1 Tablet Acetaminophen (Tylenol) tab 650 mg Calcitriol (Rocaltrol) cap 0.25 mcg dicyclomine (Bentyl) cap 20 mg DULoxetine (Cymbalta) DR cap 120 mg Ergocalciferol (Vitamin D2(Drisdol)) cap 50,000 Units Lidocaine (Aspercreme) 4 % patch 1 Patch mirtazapine ODT (Remeron Soltab) tab 45 mg Nicotine (Nicoderm CQ) 21 MG/24HR patch 1 Patch OLANZapine ODT (zyPREXA zyDIS) tab 5 mg omeprazole (PriLOSEC) cap 20 mg ondansetron ODT (Zofran) tab 4 mg Pregabalin (Lyrica) cap 25 mg QUEtiapine (SEROquel) tab 50 mg sodium chloride 0.9 % flush central line 10 mL sodium chloride 0.9 % flush/inj 3 mL Case discussed with Dr. Wilkerson. Can be discharged in the next 1-2 days since patient is at goal TPN rate PHARMACOLOGIC VTE PROPHYLAXIS: This patient does not have an active medication from one of the medication groupers. CODE STATUS: No Code EXPECTED DISCHARGE DATE: 09/27/2023 . * Wilner Gross MD - 09/25/2023 11:06 AM EDT Images from the original note were not included. [facility] [id number]/W INTERVAL HISTORY: 58 year old female who presented to [facility] 09/20/2023 for planned, direct admission accepted by Dr. Sabina Larsen on 09/19/2023 for failure to thrive. According to available records, patient, and correspondence from Dr. Larsen regarding admission, patient has been using TPN at home three days per week for 12hours each session but continues to lose weight. Patient reports that she had been 90 lbs, then dropped to 80 lbs, and currently 73 lbs. She noted that she started TPN at home around 80 lbs. She was doing it for 12 hours five times per week. In continued follow-up with Dr. Wilkerson and nutritional support team, she noted that she had "no life" because she comes home from work then has to get hooked up to TPN for 12 hours and cannot go out anywhere. Because of this she notes that she decreased the TPN to just three times per week on MWF. There is some concern that she has not been compliant with this regimen. She states that she does take PO as she is able/hungry but continues to lose weight, has increasing weakness, LE edema at times, and has also been falling at home with the increased weakn ess. As per Dr. Wilkerson, she is to be admitted for daily TPN which is resumption of this modality andconcern for refeeding syndrome with restarting therapy. Patient is in agreement for plan with d/c plan to resume TPN 12 hours three times per week. 1410 Spoke with pharmacist, Guillermo Park. Labs ordered to start tomorrow, today's TPN ordered to start this evening, pharmacy detailed note in chart with plan to do 24 hours TPN today, 16 tomorrow, 12 Monday then resume her MWF 12 hour schedule and d/c to home. Per pt And September 13 telemedicine note, patient is to be admitted for about a week Patient reports some fatigue. She is refusing blood draws and will only allow blood draws through her port. Patient states that if she has not able to gain weight with this intervention, she states she is "done with TPN" Nursing reports that pt is stating she is "done with living." Psychiatry evaluated the patient. No need for inpatient psych treatment and outpatient follow-up isappropriate. No changes in medications. No need for one-to-one sitter. Some nausea would like p.r.n. Phenergan. Nausea now controlled Some back pain, wants more morphine Objective Physical Exam Most Recent Vital Signs: BP: 92 mmHg/61 mmHg (09/25/23 105) Pulse: 109 (09/25/23 105) Temp: 36.28 C (09/25/23 1054) Temp Summary: Temp Min: 36 C (96.8 F) Max: 36.6 C (97.9 F) SpO2: 97 % (09/25/23 105) O2 flow rate: Supplemental O2 Delivery: Room Air, None (09/25/231053) Physical Exam Vitals and nursing note reviewed. Exam conducted with a leak hunter present. Constitutional: Appearance: Normal appearance. She is cachectic. Comments: Chronically ill Cardiovascular: Rate and Rhythm: Normal rate and regular rhythm. Pulses: Normal pulses. Heart sounds: Normal heart sounds. No murmur heard. No friction rub. No gallop. Pulmonary: Effort: Pulmonary effort is normal. No respiratory distress. Breath sounds: Normal breath sounds. No wheezing, rhonchi or rales. Abdominal: General: Abdomen is flat. Bowel sounds are normal. Palpations: Abdomen is soft. Musculoskeletal: Right lower leg: No edema. Left lower leg: No edema. Skin: General: Skin is warm and dry. Capillary Refill: Capillary refill takes less than 2 seconds. Neurological: General: No focal deficit present. Mental Status: She is alert and oriented to person, place, and time. Tunneled Central Cath Double Lumen Left Chest (Active) Number of days: 290 STUDIES: Encounter Orders Labs and other studies reviewed with pertinent findings noted below: Lab results within last 7 days (see chart for full results) Units 09/21/23 1128 HGB g/dL 9.3* HCT % 29.8* WBC K/uL 5.66 PLT K/uL 330 Lab results within last 7 days (see chart for full results) Units 09/25/23 0637 09/24/23 0534 09/23/23 1249 Sodium mmol/L 139 136 134* Potassium mmol/L 4.5 4.4 5.7* Chloride mmol/L 110* 110* 107 CO2 mmol/L 16* 17* 16* BUN mg/dL 66* 47* 45* Creatinine mg/dL 1.2* 1.0 1.1* Assessment and Plan IMPRESSION : Principal Problem: Failure to thrive in adult Active Problems: Intestinal postoperative nonabsorption Chronic pain syndrome Hereditary and idiopathic peripheral neuropathy Cachexia (HCC) On total parenteral nutrition (TPN) MDD (major depressive disorder), recurrent episode, moderate (HCC) Bipolar disorder (HCC) Tobacco abuse Fall at home Generalized weakness Adjustment disorder Resolved Problems: * No resolved hospital problems. * I have examined the patient and consistent with the dietitian's findings found malnutrition presentof Severe (09/21/23 1019) degree. This is consistent with such due to Fat loss;Muscle loss;Inadequate energy intake;Weight loss (09/21/23 101). I have also reviewed and agree with the dietitian's plan of care which include Nutrition support monitoring;Oral nutritional supplement ordered/adjusted (09/21/23 101). DIFFERENTIAL AND PLAN: 58-year-old with past medical hisory of depression, cachexia, intestinal post operative nonabsorption, chronic pain, neuropathy, bipolar, severe malnutrition on outpatient TPN who was admitted for failure to thrive and inpatient TPN Nutrition consult Pharmacy consult for TPN Monitor for refeeding syndrome with daily lab Okay to use port for blood draws (will need daily order) Psychiatry help appreciated. Gi nutrition help appreciated. Continue current meds Adult TPN central IV Ferrous Sulfate (Feosol) tab 325 mg vitamin b-12 (Cyanocobalamin) inj 1,000 mcg Vitamin C (Ascorbic Acid) tab 250 mg ALPRAZolam (xaNAX) tab 0.25 mg Docusate Sodium (Colace) cap 100 mg promethazine (Phenergan) tab 25 mg SUMAtriptan (Imitrex) tab 50 mg xakyuotqsn-karabmzivisse-gxdzttup 50-325-40 mg per tab (Fioricet) 1 Tablet morphine sulfate inj 2 mg Acetaminophen (Tylenol) tab 650 mg Calcitriol (Rocaltrol) cap 0.25 mcg dicyclomine (Bentyl) cap 20 mg DULoxetine (Cymbalta) DR cap 120 mg Ergocalciferol (Vitamin D2(Drisdol)) cap 50,000 Units Lidocaine (Aspercreme) 4 % patch 1 Patch mirtazapine ODT (Remeron Soltab) tab 45 mg Nicotine (Nicoderm CQ) 21 MG/24HR patch 1 Patch OLANZapine ODT (zyPREXA zyDIS) tab 5 mg omeprazole (PriLOSEC) cap 20 mg ondansetron ODT (Zofran) tab 4 mg Pregabalin (Lyrica) cap 25 mg QUEtiapine (SEROquel) tab 50 mg sodium chloride 0.9 % flush central line 10 mL sodium chloride 0.9 % flush/inj 3 mL PHARMACOLOGIC VTE PROPHYLAXIS: This patient does not have an active medication from one of the medication groupers. CODE STATUS: No Code EXPECTED DISCHARGE DATE: 09/27/2023 . * Tj Park [facility] - 09/25/2023 10:12 AM EDT Images from the original note were not included. PHARMACY PARENTERAL NUTRITION CONSULT [address] [address] Name: Chandrika Hogue Date: 09/25/2023 at 10:12 AM PN per Pharmacy TBW: 37 kg Height: 150 cm BMI: 16.66 kg/m2 Age: 58 years Diabetic?: no Central or peripheral administration?: central Current PN parameters: Total Kcal: 1370 (100 % goal) Fluid: 1200 ml (100 % goal) Macronutrients: Amino acids: 60 grams = 240 kcal (4 kcal/gram) = 100 % goal Carbohydrates: 200 grams = 680 kcal (3.4 kcal/gram) = 100 % goal Lipids: 45 grams = 450 kcal (10 kcal/gram) = 100 % goal Micronutrients Electrolytes Na: 60 meq K: 20 meq Phos: 15 mmol M meq Ca: 0 meq Acetate: 20 meq Cl: 40 meq Trace elements: 1 ml Provides Zinc 3 mg Copper 0.3 mg Manganese 55 mcg Selenium 60 mcg Infuvite multivitamin: 10 ml Thiamine 100 mg Chloride to acetate ratio: 2 Dextrose mg/kg/min: 7.43 HOME TPN "RECIPE" -Resuming home TPN. -Using trace minerals; currently have no selenium, copper, zinc, or manganese. -Sodium acetate is on backorder; utilizing sodium chloride to provide some Na without administeringtoo much chloride. -Administering TPN daily -Will taper on to administering over 12 hours if patient tolerates. 24 hours today, 16 hours tomorrow, and then 12 hours. 09/21 -Decreased K -Increased phos and dextrose -will do 24 administration today due to increase in macros and will taper after that if patient is stable. 09/22 - D/w Dr. Boswell, d/t labs not being drawn will re-order same TPN regimen as yesterday over 24 hours (decreased potassium acetate from 40 mEq to 20 mEq) - Follow up on labs tomorrow - Update: K at 5.7, d/w nutrition and agree to take all K containing products out for today 09/23 - D/w Dr. Wilkerson regarding TPN, his is okay with adding back 40 mEq of potassium acetate, as well asincreasing protein to 65 g - Added thiamine 100 mg to bag (daily) per Dr. Wilkerson - Start to run over 16 hours tonight 09/24 -decreasing K, administer over 12 hours Contact the Pharmacy at extension [phone] if there are any questions. * Rubin Dowell [facility] - 09/24/2023 11:50 AM EDT Images from the original note were not included. PHARMACY PARENTERAL NUTRITION CONSULT [facility] [id number] Name: Chandrika Hogue Date: 09/24/2023 at 11:50 AM PN per Pharmacy TBW: 3 kg Height: 150 cm BMI: 14.97 kg/m2 Age: 58 years Diabetic?: no Central or peripheral administration?: central Current PN parameters: Total Kcal: 1370 (100 % goal) Fluid: 1200 ml (100 % goal) Macronutrients: Amino acids: 60 grams = 240 kcal (4 kcal/gram) = 100 % goal Carbohydrates: 200 grams = 680 kcal (3.4 kcal/gram) = 100 % goal Lipids: 45 grams = 450 kcal (10 kcal/gram) = 100 % goal Micronutrients Electrolytes Na: 60 meq K: 40 meq Phos: 15 mmol M meq Ca: 0 meq Acetate: 40 meq Cl: 40 meq Trace elements: 1 ml Provides Zinc 3 mg Copper 0.3 mg Manganese 55 mcg Selenium 60 mcg Infuvite multivitamin: 10 ml Chloride to acetate ratio: 1 Dextrose mg/kg/min: 3.98 HOME TPN "RECIPE" -Resuming home TPN. -Using trace minerals; currently have no selenium, copper, zinc, or manganese. -Sodium acetate is on backorder; utilizing 40 meq of sodium chloride to provide some Na without administering too much chloride. -Administering TPN daily -Will taper on to administering over 12 hours if patient tolerates. 24 hours today, 16 hours tomorrow, and then 12 hours Thursday 09/21 -Decreased K -Increased phos and dextrose -will do 24 administration today due to increase in macros and will taper after that if patient is stable. 09/22 - D/w Dr. Boswell, d/t labs not being drawn will re-order same TPN regimen as yesterday over 24 hours (decreased potassium acetate from 40 mEq to 20 mEq) - Follow up on labs tomorrow - Update: K at 5.7, d/w nutrition and agree to take all K containing products out for today 09/23 - D/w Dr. Wilkerson regarding TPN, his is okay with adding back 40 mEq of potassium acetate, as well asincreasing protein to 65 g - Added thiamine 100 mg to bag (daily) per Dr. Wilkerson - Start to run over 16 hours tonight Contact the Pharmacy at extension [phone] if there are any questions. * Wilner Gross MD - 09/24/2023 10:03 AM EDT Images from the original note were not included. [facility] 5A-5105/W INTERVAL HISTORY: 58 year old female who presented to [facility] 09/20/2023 for planned, direct admission accepted by Dr. Sabina Larsen on 09/19/2023 for failure to thrive. According to available records, patient, and correspondence from Dr. Larsen regarding admission, patient has been using TPN at home three days per week for 12hours each session but continues to lose weight. Patient reports that she had been 90 lbs, then dropped to 80 lbs, and currently 73 lbs. She noted that she started TPN at home around 80 lbs. She was doing it for 12 hours five times per week. In continued follow-up with Dr. Wilkerson and nutritional support team, she noted that she had "no life" because she comes home from work then has to get hooked up to TPN for 12 hours and cannot go out anywhere. Because of this she notes that she decreased the TPN to just three times per week on MWF. There is some concern that she has not been compliant with this regimen. She states that she does take PO as she is able/hungry but continues to lose weight, has increasing weakness, LE edema at times, and has also been falling at home with the increased weakn ess. As per Dr. Wilkerson, she is to be admitted for daily TPN which is resumption of this modality andconcern for refeeding syndrome with restarting therapy. Patient is in agreement for plan with d/c plan to resume TPN 12 hours three times per week. 1410 Spoke with pharmacist, Guillermo Park. Labs ordered to start tomorrow, today's TPN ordered to start this evening, pharmacy detailed note in chart with plan to do 24 hours TPN today, 16 tomorrow, Monday then resume her MWF 12 hour schedule and d/c to home. Per pt And September 13 telemedicine note, patient is to be admitted for about a week Patient reports some fatigue. She is refusing blood draws and will only allow blood draws through her port. Patient states that if she has not able to gain weight with this intervention, she states she is "done with TPN" Nursing reports that pt is stating she is "done with living." Psychiatry evaluated the patient. No need for inpatient psych treatment and outpatient follow-up isappropriate. No changes in medications. No need for one-to-one sitter. Some nausea would like p.r.n. Phenergan. Nausea now controlled Objective Physical Exam Most Recent Vital Signs: BP: 98 mmHg/62 mmHg (09/24/23707) Pulse: 92 (09/24/23 07) Temp: 36.22 C (09/24/23707) Temp Summary: Temp Min: 36 C (96.8 F) Max: 36.9 C (98.4 F) SpO2: 97 % (09/24/23 0708) O2 flow rate: Supplemental O2 Delivery: Room Air, None (09/24/23 07) Physical Exam Vitals and nursing note reviewed. Exam conducted with a leak hunter present. Constitutional: Appearance: Normal appearance. She is cachectic. Comments: Chronically ill Cardiovascular: Rate and Rhythm: Normal rate and regular rhythm. Pulses: Normal pulses. Heart sounds: Normal heart sounds. No murmur heard. No friction rub. No gallop. Pulmonary: Effort: Pulmonary effort is normal. No respiratory distress. Breath sounds: Normal breath sounds. No wheezing, rhonchi or rales. Abdominal: General: Abdomen is flat. Bowel sounds are normal. Palpations: Abdomen is soft. Musculoskeletal: Right lower leg: No edema. Left lower leg: No edema. Skin: General: Skin is warm and dry. Capillary Refill: Capillary refill takes less than 2 seconds. Neurological: General: No focal deficit present. Mental Status: She is alert and oriented to person, place, and time. Tunneled Central Cath Double Lumen Left Chest (Active) Number of days: 289 STUDIES: Encounter Orders Labs and other studies reviewed with pertinent findings noted below: Lab results within last 7 days (see chart for full results) Units 09/21/23 1128 HGB g/dL 9.3* HCT % 29.8* WBC K/uL 5.66 PLT K/uL 330 Lab results within last 7 days (see chart for full results) Units 09/24/23 0534 09/23/23 1249 09/22/23 0832 Sodium mmol/L 136 134* 135 Potassium mmol/L 4.4 5.7* 5.1 Chloride mmol/L 110* 107 112* CO2 mmol/L 17* 16* 16* BUN mg/dL 47* 45* 39* Creatinine mg/dL 1.0 1.1* 1.1* Assessment and Plan IMPRESSION : Principal Problem: Failure to thrive in adult Active Problems: Intestinal postoperative nonabsorption Chronic pain syndrome Hereditary and idiopathic peripheral neuropathy Cachexia (HCC) On total parenteral nutrition (TPN) MDD (major depressive disorder), recurrent episode, moderate (HCC) Bipolar disorder (HCC) Tobacco abuse Fall at home Generalized weakness Adjustment disorder Resolved Problems: * No resolved hospital problems. * I have examined the patient and consistent with the dietitian's findings found malnutrition presentof Severe (09/21/23 1019) degree. This is consistent with such due to Fat loss;Muscle loss;Inadequate energy intake;Weight loss (09/21/23 1019). I have also reviewed and agree with the dietitian's plan of care which include Nutrition support monitoring;Oral nutritional supplement ordered/adjusted (09/21/23 1019). DIFFERENTIAL AND PLAN: 58-year-old with past medical hisory of depression, cachexia, intestinal post operative nonabsorption, chronic pain, neuropathy, bipolar, severe malnutrition on outpatient TPN who was admitted for failure to thrive and inpatient TPN Nutrition consult Pharmacy consult for TPN Monitor for refeeding syndrome with daily lab Okay to use port for blood draws (will need daily order) Psychiatry help appreciated. Continue current meds Adult TPN central IV ALPRAZolam (xaNAX) tab 0.25 mg Docusate Sodium (Colace) cap 100 mg promethazine (Phenergan) tab 25 mg SUMAtriptan (Imitrex) tab 50 mg yoaqvptrxq-dspzoyogmxcwd-rrkpqwrg 50-325-40 mg per tab (Fioricet) 1 Tablet morphine sulfate inj 2 mg Acetaminophen (Tylenol) tab 650 mg Calcitriol (Rocaltrol) cap 0.25 mcg dicyclomine (Bentyl) cap 20 mg DULoxetine (Cymbalta) DR cap 120 mg Ergocalciferol (Vitamin D2(Drisdol)) cap 50,000 Units Lidocaine (Aspercreme) 4 % patch 1 Patch mirtazapine ODT (Remeron Soltab) tab 45 mg Nicotine (Nicoderm CQ) 21 MG/24HR patch 1 Patch OLANZapine ODT (zyPREXA zyDIS) tab 5 mg omeprazole (PriLOSEC) cap 20 mg ondansetron ODT (Zofran) tab 4 mg Pregabalin (Lyrica) cap 25 mg QUEtiapine (SEROquel) tab 50 mg sodium chloride 0.9 % flush central line 10 mL sodium chloride 0.9 % flush/inj 3 mL PHARMACOLOGIC VTE PROPHYLAXIS: This patient does not have an active medication from one of the medication groupers. CODE STATUS: No Code EXPECTED DISCHARGE DATE: 09/25/2023 . * Rubin Dowell, [facility] - 09/23/2023 12:26 PM EDT Images from the original note were not included. PHARMACY PARENTERAL NUTRITION CONSULT [address] [place] [address] Name: Chandrika Hogue Date: 09/23/2023 at 12:26 PM PN per Pharmacy TBW: 3 kg Height: 150 cm BMI: 14.97 kg/m2 Age: 58 years Diabetic?: no Central or peripheral administration?: central Current PN parameters: Total Kcal: 1370 (100 % goal) Fluid: 1200 ml (100 % goal) Macronutrients: Amino acids: 60 grams = 240 kcal (4 kcal/gram) = 100 % goal Carbohydrates: 200 grams = 680 kcal (3.4 kcal/gram) = 100 % goal Lipids: 45 grams = 450 kcal (10 kcal/gram) = 100 % goal Micronutrients Electrolytes Na: 60 meq K: 40 meq Phos: 15 mmol M meq Ca: 0 meq Acetate: 40 meq Cl: 40 meq Trace elements: 1 ml Provides Zinc 3 mg Copper 0.3 mg Manganese 55 mcg Selenium 60 mcg Infuvite multivitamin: 10 ml Chloride to acetate ratio: 1 Dextrose mg/kg/min: 3.98 HOME TPN "RECIPE" -Resuming home TPN. -Using trace minerals; currently have no selenium, copper, zinc, or manganese. -Sodium acetate is on backorder; utilizing 40 meq of sodium chloride to provide some Na without administering too much chloride. -Administering TPN daily -Will taper on to administering over 12 hours if patient tolerates. 24 hours today, 16 hours tomorrow, and then 12 hours Thursday 09/21 -Decreased K -Increased phos and dextrose -will do 24 administration today due to increase in macros and will taper after that if patient is stable. 09/22 - D/w Dr. Boswell, d/t labs not being drawn will re-order same TPN regimen as yesterday over 24 hours (decreased potassium acetate from 40 mEq to 20 mEq) - Follow up on labs tomorrow - Update: K at 5.7, d/w nutrition and agree to take all K containing products out for today Contact the Pharmacy at extension [phone] if there are any questions. * Wilner Gross MD - 09/23/2023 7:53 AM EDT Images from the original note were not included. [facility] 5A-5105/W INTERVAL HISTORY: 58 year old female who presented to [facility] 09/20/2023 for planned, direct admission accepted by Dr. Sabina Larsen on 09/19/2023 for failure to thrive. According to available records, patient, and correspondence from Dr. Larsen regarding admission, patient has been using TPN at home three days per week for 12hours each session but continues to lose weight. Patient reports that she had been 90 lbs, then dropped to 80 lbs, and currently 73 lbs. She noted that she started TPN at home around 80 lbs. She was doing it for 12 hours five times per week. In continued follow-up with Dr. Wilkerson and nutritional support team, she noted that she had "no life" because she comes home from work then has to get hooked up to TPN for 12 hours and cannot go out anywhere. Because of this she notes that she decreased the TPN to just three times per week on MWF. There is some concern that she has not been compliant with this regimen. She states that she does take PO as she is able/hungry but continues to lose weight, has increasing weakness, LE edema at times, and has also been falling at home with the increased weakn ess. As per Dr. Wilkerson, she is to be admitted for daily TPN which is resumption of this modality andconcern for refeeding syndrome with restarting therapy. Patient is in agreement for plan with d/c plan to resume TPN 12 hours three times per week. 1409 Spoke with pharmacist, Guillermo Park. Labs ordered to start tomorrow, today's TPN ordered to start this evening, pharmacy detailed note in chart with plan to do 24 hours TPN today, 16 tomorrow, Monday then resume her MWF 12 hour schedule and d/c to home. Per pt And September 13 telemedicine note, patient is to be admitted for about a week Patient reports some fatigue. She is refusing blood draws and will only allow blood draws through her port. Patient states that if she has not able to gain weight with this intervention, she states she is "done with TPN" Nursing reports that pt is stating she is "done with living." Psychiatry evaluated the patient. No need for inpatient psych treatment and outpatient follow-up isappropriate. No changes in medications. No need for one-to-one sitter. Some nausea would like p.r.n. Phenergan Objective Physical Exam Most Recent Vital Signs: BP: 94 mmHg/56 mmHg (09/23/23745) Pulse: 84 (09/23/23745) Temp: 36 C (09/23/23745) Temp Summary: Temp Min: 35.9 C (96.6 F) Max: 36.4 C (97.5 F) SpO2: 97 % (09/23/23745) O2 flow rate: Supplemental O2 Delivery: Room Air, None (09/23/23745) Physical Exam Vitals and nursing note reviewed. Exam conducted with a leak hunter present. Constitutional: Appearance: Normal appearance. She is cachectic. Comments: Chronically ill Cardiovascular: Rate and Rhythm: Normal rate and regular rhythm. Pulses: Normal pulses. Heart sounds: Normal heart sounds. No murmur heard. No friction rub. No gallop. Pulmonary: Effort: Pulmonary effort is normal. No respiratory distress. Breath sounds: Normal breath sounds. No wheezing, rhonchi or rales. Abdominal: General: Abdomen is flat. Bowel sounds are normal. Palpations: Abdomen is soft. Musculoskeletal: Right lower leg: No edema. Left lower leg: No edema. Skin: General: Skin is warm and dry. Capillary Refill: Capillary refill takes less than 2 seconds. Neurological: General: No focal deficit present. Mental Status: She is alert and oriented to person, place, and time. Tunneled Central Cath Double Lumen Left Chest (Active) Number of days: 288 STUDIES: Encounter Orders Labs and other studies reviewed with pertinent findings noted below: Lab results within last 7 days (see chart for full results) Units 09/21/23 1128 HGB g/dL 9.3* HCT % 29.8* WBC K/uL 5.66 PLT K/uL 330 Lab results within last 7 days (see chart for full results) Units 09/22/23 0832 09/21/23 1128 Sodium mmol/L 135 136 Potassium mmol/L 5.1 5.5* Chloride mmol/L 112* 111* CO2 mmol/L 16* 13* BUN mg/dL 39* 37* Creatinine mg/dL 1.1* 1.2* Assessment and Plan IMPRESSION : Principal Problem: Failure to thrive in adult Active Problems: Intestinal postoperative nonabsorption Chronic pain syndrome Hereditary and idiopathic peripheral neuropathy Cachexia (HCC) On total parenteral nutrition (TPN) MDD (major depressive disorder), recurrent episode, moderate (HCC) Bipolar disorder (HCC) Tobacco abuse Fall at home Generalized weakness Adjustment disorder Resolved Problems: * No resolved hospital problems. * I have examined the patient and consistent with the dietitian's findings found malnutrition presentof Severe (09/21/23 1019) degree. This is consistent with such due to Fat loss;Muscle loss;Inadequate energy intake;Weight loss (09/21/23 1019). I have also reviewed and agree with the dietitian's plan of care which include Nutrition support monitoring;Oral nutritional supplement ordered/adjusted (09/21/23 1019). DIFFERENTIAL AND PLAN: 58-year-old with past medical hisory of depression, cachexia, intestinal post operative nonabsorption, chronic pain, neuropathy, bipolar, severe malnutrition on outpatient TPN who was admitted for failure to thrive and inpatient TPN Nutrition consult Pharmacy consult for TPN Monitor for refeeding syndrome with daily lab Okay to use port for blood draws (will need daily order) Psychiatry help appreciated. Continue current meds ALPRAZolam (xaNAX) tab 0.25 mg promethazine (Phenergan) tab 25 mg SUMAtriptan (Imitrex) tab 50 mg Adult TPN central IV vmhuckxnpf-gmalqyfghwkzk-totjagfd 50-325-40 mg per tab (Fioricet) 1 Tablet morphine sulfate inj 2 mg Acetaminophen (Tylenol) tab 650 mg Calcitriol (Rocaltrol) cap 0.25 mcg dicyclomine (Bentyl) cap 20 mg DULoxetine (Cymbalta) DR cap 120 mg Ergocalciferol (Vitamin D2(Drisdol)) cap 50,000 Units Lidocaine (Aspercreme) 4 % patch 1 Patch mirtazapine ODT (Remeron Soltab) tab 45 mg Nicotine (Nicoderm CQ) 21 MG/24HR patch 1 Patch OLANZapine ODT (zyPREXA zyDIS) tab 5 mg omeprazole (PriLOSEC) cap 20 mg ondansetron ODT (Zofran) tab 4 mg Pregabalin (Lyrica) cap 25 mg QUEtiapine (SEROquel) tab 50 mg sodium chloride 0.9 % flush central line 10 mL sodium chloride 0.9 % flush/inj 3 mL PHARMACOLOGIC VTE PROPHYLAXIS: This patient does not have an active medication from one of the medication groupers. CODE STATUS: No Code EXPECTED DISCHARGE DATE: 09/25/2023 I spent a total of 51 minutes coordinating, documenting, and providing care for this patient excluding time spent in the performance of separately billed services. * Tj Park, [facility] - 09/22/2023 9:39 AM EDT Images from the original note were not included. PHARMACY PARENTERAL NUTRITION CONSULT [facility]-[address] [id number] Name: Chandrika Hogue Date: 09/22/2023 at 9:39 AM PN per Pharmacy TBW: 3 kg Height: 150 cm BMI: 14.97 kg/m2 Age: 58 years Diabetic?: no Central or peripheral administration?: central Current PN parameters: Total Kcal: 1370 (100 % goal) Fluid: 1200 ml (100 % goal) Macronutrients: Amino acids: 60 grams = 240 kcal (4 kcal/gram) = 100 % goal Carbohydrates: 200 grams = 680 kcal (3.4 kcal/gram) = 100 % goal Lipids: 45 grams = 450 kcal (10 kcal/gram) = 100 % goal Micronutrients Electrolytes Na: 60 meq K: 40 meq Phos: 15 mmol M meq Ca: 0 meq Acetate: 40 meq Cl: 40 meq Trace elements: 1 ml Provides Zinc 3 mg Copper 0.3 mg Manganese 55 mcg Selenium 60 mcg Infuvite multivitamin: 10 ml Chloride to acetate ratio: 1 Dextrose mg/kg/min: 3.98 HOME TPN "RECIPE" -Resuming home TPN. -Using trace minerals; currently have no selenium, copper, zinc, or manganese. -Sodium acetate is on backorder; utilizing 40 meq of sodium chloride to provide some Na without administering too much chloride. -Administering TPN daily -Will taper on to administering over 12 hours if patient tolerates. 24 hours today, 16 hours tomorrow, and then 12 hours Thursday 09/21 -Decreased K -Increased phos and dextrose -will do 24 administration today due to increase in macros and will taper after that if patient is stable. Contact the Pharmacy at extension [phone] if there are any questions. * Wilner Gross MD - 09/22/2023 7:44 AM EDT Images from the original note were not included. [facility] 5A-5105/W INTERVAL HISTORY: 58 year old female who presented to [facility] 09/20/2023 for planned, direct admission accepted by Dr. Sabina Larsen on 09/19/2023 for failure to thrive. According to available records, patient, and correspondence from Dr. Larsen regarding admission, patient has been using TPN at home three days per week for 12hours each session but continues to lose weight. Patient reports that she had been 90 lbs, then dropped to 80 lbs, and currently 73 lbs. She noted that she started TPN at home around 80 lbs. She was doing it for 12 hours five times per week. In continued follow-up with Dr. Wilkerson and nutritional support team, she noted that she had "no life" because she comes home from work then has to get hooked up to TPN for 12 hours and cannot go out anywhere. Because of this she notes that she decreased the TPN to just three times per week on MWF. There is some concern that she has not been compliant with this regimen. She states that she does take PO as she is able/hungry but continues to lose weight, has increasing weakness, LE edema at times, and has also been falling at home with the increased weakn ess. As per Dr. Wilkerson, she is to be admitted for daily TPN which is resumption of this modality andconcern for refeeding syndrome with restarting therapy. Patient is in agreement for plan with d/c plan to resume TPN 12 hours three times per week. 0 Spoke with pharmacist, Guillermo Park. Labs ordered to start tomorrow, today's TPN ordered to start this evening, pharmacy detailed note in chart with plan to do 24 hours TPN today, 16 tomorrow, 12 Monday then resume her MWF 12 hour schedule and d/c to home. Per pt And September 13 telemedicine note, patient is to be admitted for about a week Patient reports some fatigue. She is refusing blood draws and will only allow blood draws through her port. Patient states that if she has not able to gain weight with this intervention, she states she is "done with TPN" Nursing reports that pt is stating she is "done with living." Objective Physical Exam Most Recent Vital Signs: BP: 88 mmHg/65 mmHg (09/22/23 1035) Pulse: 94 (09/22/23 1035) Temp: 36.39 C (09/22/23 1035) Temp Summary: Temp Min: 36 C (96.8 F) Max: 36.4 C (97.5 F) SpO2: 98 % (09/22/23 1035) O2 flow rate: Supplemental O2 Delivery: Room Air, None (09/22/23 103) Physical Exam Vitals and nursing note reviewed. Exam conducted with a leak hunter present. Constitutional: Appearance: Normal appearance. She is cachectic. Comments: Chronically ill Cardiovascular: Rate and Rhythm: Normal rate and regular rhythm. Pulses: Normal pulses. Heart sounds: Normal heart sounds. No murmur heard. No friction rub. No gallop. Pulmonary: Effort: Pulmonary effort is normal. No respiratory distress. Breath sounds: Normal breath sounds. No wheezing, rhonchi or rales. Abdominal: General: Abdomen is flat. Bowel sounds are normal. Palpations: Abdomen is soft. Musculoskeletal: Right lower leg: No edema. Left lower leg: No edema. Skin: General: Skin is warm and dry. Capillary Refill: Capillary refill takes less than 2 seconds. Neurological: General: No focal deficit present. Mental Status: She is alert and oriented to person, place, and time. Tunneled Central Cath Double Lumen Left Chest (Active) Number of days: 287 STUDIES: Encounter Orders Labs and other studies reviewed with pertinent findings noted below: Lab results within last 7 days (see chart for full results) Units 09/21/23 1128 HGB g/dL 9.3* HCT % 29.8* WBC K/uL 5.66 PLT K/uL 330 Lab results within last 7 days (see chart for full results) Units 09/22/23 0832 09/21/23 1128 Sodium mmol/L 135 136 Potassium mmol/L 5.1 5.5* Chloride mmol/L 112* 111* CO2 mmol/L 16* 13* BUN mg/dL 39* 37* Creatinine mg/dL 1.1* 1.2* Assessment and Plan IMPRESSION : Principal Problem: Failure to thrive in adult Active Problems: Intestinal postoperative nonabsorption Chronic pain syndrome Hereditary and idiopathic peripheral neuropathy Cachexia (HCC) On total parenteral nutrition (TPN) MDD (major depressive disorder), recurrent episode, moderate (HCC) Bipolar disorder (HCC) Tobacco abuse Fall at home Generalized weakness Resolved Problems: * No resolved hospital problems. * I have examined the patient and consistent with the dietitian's findings found malnutrition presentof Severe (09/21/23 1019) degree. This is consistent with such due to Fat loss;Muscle loss;Inadequate energy intake;Weight loss (09/21/23 1019). I have also reviewed and agree with the dietitian's plan of care which include Nutrition support monitoring;Oral nutritional supplement ordered/adjusted (09/21/23 1019). DIFFERENTIAL AND PLAN: 58-year-old with past medical hisory of depression, cachexia, intestinal post operative nonabsorption, chronic pain, neuropathy, bipolar, severe malnutrition on outpatient TPN who was admitted for failure to thrive and inpatient TPN Nutrition consult Pharmacy consult for TPN Monitor for refeeding syndrome with daily lab Okay to use port for blood draws (will need daily order) Psychiatry consult Continue current meds Adult TPN central IV Adult TPN central IV osobtwayvw-cyvpgxtgqcbia-slbrwmvg 50-325-40 mg per tab (Fioricet) 1 Tablet morphine sulfate inj 2 mg SUMAtriptan (Imitrex) tab 50 mg Acetaminophen (Tylenol) tab 650 mg ALPRAZolam (xaNAX) tab 0.25 mg Calcitriol (Rocaltrol) cap 0.25 mcg dicyclomine (Bentyl) cap 20 mg DULoxetine (Cymbalta) cap 120 mg Ergocalciferol (Vitamin D2(Drisdol)) cap 50,000 Units Lidocaine (Aspercreme) 4 % patch 1 Patch mirtazapine ODT (Remeron Soltab) tab 45 mg Nicotine (Nicoderm CQ) 21 MG/24HR patch 1 Patch OLANZapine ODT (zyPREXA zyDIS) tab 5 mg omeprazole (PriLOSEC) cap 20 mg ondansetron ODT (Zofran) tab 4 mg Pregabalin (Lyrica) cap 25 mg QUEtiapine (SEROquel) tab 50 mg sodium chloride 0.9 % flush central line 10 mL sodium chloride 0.9 % flush/inj 3 mL PHARMACOLOGIC VTE PROPHYLAXIS: This patient does not have an active medication from one of the medication groupers. CODE STATUS: No Code EXPECTED DISCHARGE DATE: 09/25/2023 I spent a total of 54 minutes coordinating, documenting, and providing care for this patient excluding time spent in the performance of separately billed services. * Tj Park [facility] - 09/21/2023 12:45 PM EDT Images from the original note were not included. PHARMACY PARENTERAL NUTRITION CONSULT [facility]-[address] [id number] Name: Chandrika Hogue Date: 09/21/2023 at 12:45 PM PN per Pharmacy TBW: 3 kg Height: 150 cm BMI: 14.97 kg/m2 Age: 58 years Diabetic?: no Central or peripheral administration?: central Current PN parameters: Total Kcal: 1030 (75 % goal) Fluid: 1200 ml (100 % goal) Macronutrients: Amino acids: 60 grams = 240 kcal (4 kcal/gram) = 100 % goal Carbohydrates: 100 grams = 340 kcal (3.4 kcal/gram) = 50 % goal Lipids: 45 grams = 450 kcal (10 kcal/gram) = 100 % goal Micronutrients Electrolytes Na: 40 meq K: 48 meq Phos: 12 mmol M meq Ca: 0 meq Acetate: 30 meq Cl: 40 meq Trace elements: 1 ml Provides Zinc 3 mg Copper 0.3 mg Manganese 55 mcg Selenium 60 mcg Infuvite multivitamin: 10 ml Chloride to acetate ratio: 1.335 Dextrose mg/kg/min: 2.08 HOME TPN "RECIPE" -Resuming home TPN. -Using trace minerals; currently have no selenium, copper, zinc, or manganese. -Sodium acetate is on backorder; utilizing 40 meq of sodium chloride to provide some Na without administering too much chloride. -Administering TPN daily -Will taper on to administering over 12 hours if patient tolerates. 24 hours today, 16 hours tomorrow, and then 12 hours Wednesday 09/20 -Decreased phos and K, maintaining macros and 24 hour administration today.. Contact the Pharmacy at extension [phone] if there are any questions. * Wilner Gross MD - 09/21/2023 7:42 AM EDT Images from the original note were not included. [facility] 5A-5105/W INTERVAL HISTORY: 58 year old female who presented to [facility] 09/20/2023 for planned, direct admission accepted by Dr. Sabina Larsen on 09/19/2023 for failure to thrive. According to available records, patient, and correspondence from Dr. Larsen regarding admission, patient has been using TPN at home three days per week for 12hours each session but continues to lose weight. Patient reports that she had been 90 lbs, then dropped to 80 lbs, and currently 73 lbs. She noted that she started TPN at home around 80 lbs. She was doing it for 12 hours five times per week. In continued follow-up with Dr. Wilkerson and nutritional support team, she noted that she had "no life" because she comes home from work then has to get hooked up to TPN for 12 hours and cannot go out anywhere. Because of this she notes that she decreased the TPN to just three times per week on MWF. There is some concern that she has not been compliant with this regimen. She states that she does take PO as she is able/hungry but continues to lose weight, has increasing weakness, LE edema at times, and has also been falling at home with the increased weakn ess. As per Dr. Wilkerson, she is to be admitted for daily TPN which is resumption of this modality andconcern for refeeding syndrome with restarting therapy. Patient is in agreement for plan with d/c plan to resume TPN 12 hours three times per week. 0 Spoke with pharmacist, Guillermo Park. Labs ordered to start tomorrow, today's TPN ordered to start this evening, pharmacy detailed note in chart with plan to do 24 hours TPN today, 16 tomorrow, Monday then resume her MWF 12 hour schedule and d/c to home. Per pt And September 13 telemedicine note, patient is to be admitted for about a week Patient reports some fatigue. She is refusing blood draws and will only allow blood draws through her port. Patient states that if she has not able to gain weight with this intervention, she states she is "done with TPN" Objective Physical Exam Most Recent Vital Signs: BP: 94 mmHg/68 mmHg (09/21/23712) Pulse: 87 (09/21/[address]) Temp: 35.89 C (09/21/23712) Temp Summary: Temp Min: 35.9 C (96.6 F) Max: 36.6 C (97.9 F) SpO2: 98 % (09/21/23712) O2 flow rate: Supplemental O2 Delivery: Room Air, None (09/21/23712) Physical Exam Vitals and nursing note reviewed. Exam conducted with a leak hunter present. Constitutional: Appearance: Normal appearance. She is cachectic. Comments: Chronically ill Cardiovascular: Rate and Rhythm: Normal rate and regular rhythm. Pulses: Normal pulses. Heart sounds: Normal heart sounds. No murmur heard. No friction rub. No gallop. Pulmonary: Effort: Pulmonary effort is normal. No respiratory distress. Breath sounds: Normal breath sounds. No wheezing, rhonchi or rales. Abdominal: General: Abdomen is flat. Bowel sounds are normal. Palpations: Abdomen is soft. Musculoskeletal: Right lower leg: No edema. Left lower leg: No edema. Skin: General: Skin is warm and dry. Capillary Refill: Capillary refill takes less than 2 seconds. Neurological: General: No focal deficit present. Mental Status: She is alert and oriented to person, place, and time. Tunneled Central Cath Double Lumen Left Chest (Active) Number of days: 286 STUDIES: Encounter Orders Labs and other studies reviewed with pertinent findings noted below: Lab results within last 7 days (see chart for full results) Units 09/21/23 1128 HGB g/dL 9.3* HCT % 29.8* WBC K/uL 5.66 PLT K/uL 330 Lab results within last 7 days (see chart for full results) Units 09/21/23 1128 Sodium mmol/L 136 Potassium mmol/L 5.5* Chloride mmol/L 111* CO2 mmol/L 13* BUN mg/dL 37* Creatinine mg/dL 1.2* Assessment and Plan IMPRESSION : Principal Problem: Failure to thrive in adult Active Problems: Intestinal postoperative nonabsorption Chronic pain syndrome Hereditary and idiopathic peripheral neuropathy Cachexia (HCC) On total parenteral nutrition (TPN) MDD (major depressive disorder), recurrent episode, moderate (HCC) Bipolar disorder (HCC) Tobacco abuse Fall at home Generalized weakness Resolved Problems: * No resolved hospital problems. * DIFFERENTIAL AND PLAN: 58-year-old with past medical hisory of depression, cachexia, intestinal post operative nonabsorption, chronic pain, neuropathy, bipolar, severe malnutrition on outpatient TPN who was admitted for failure to thrive and inpatient TPN Nutrition consult Pharmacy consult for TPN Monitor for refeeding syndrome with daily lab Okay to use port for blood draws Continue current meds Adult TPN central IV vgfykrdfgm-bjrgqqavsjeug-mdqpleod 50-325-40 mg per tab (Fioricet) 1 Tablet morphine sulfate inj 2 mg SUMAtriptan (Imitrex) tab 50 mg Acetaminophen (Tylenol) tab 650 mg Adult TPN central IV ALPRAZolam (xaNAX) tab 0.25 mg [START ON 09/22/2023] Calcitriol (Rocaltrol) cap 0.25 mcg dicyclomine (Bentyl) cap 20 mg DULoxetine (Cymbalta) DR cap 120 mg Ergocalciferol (Vitamin D2(Drisdol)) cap 50,000 Units Lidocaine (Aspercreme) 4 % patch 1 Patch mirtazapine ODT (Remeron Soltab) tab 45 mg Nicotine (Nicoderm CQ) 21 MG/24HR patch 1 Patch OLANZapine ODT (zyPREXA zyDIS) tab 5 mg omeprazole (PriLOSEC) cap 20 mg ondansetron ODT (Zofran) tab 4 mg Pregabalin (Lyrica) cap 25 mg QUEtiapine (SEROquel) tab 50 mg sodium chloride 0.9 % flush central line 10 mL sodium chloride 0.9 % flush/inj 3 mL PHARMACOLOGIC VTE PROPHYLAXIS: This patient does not have an active medication from one of the medication groupers. CODE STATUS: No Code EXPECTED DISCHARGE DATE: No information available I spent a total of 52 minutes coordinating, documenting, and providing care for this patient excluding time spent in the performance of separately billed services. * Tj Park [facility] - 09/20/2023 1:42 PM EDT Images from the original note were not included. PHARMACY PARENTERAL NUTRITION CONSULT [address] [address] Name: Chandrika Hogue Date: 09/20/2023 at 1:43 PM PN per Pharmacy TBW: 3 kg Height: 150 cm BMI: 14.97 kg/m2 Age: 58 years Diabetic?: no Central or peripheral administration?: central Current PN parameters: Total Kcal: 1030 (100 % goal) Fluid: 1200 ml (100 % goal) Macronutrients: Amino acids: 60 grams = 240 kcal (4 kcal/gram) = 100 % goal Carbohydrates: 100 grams = 340 kcal (3.4 kcal/gram) = 100 % goal Lipids: 45 grams = 450 kcal (10 kcal/gram) = 100 % goal Micronutrients Electrolytes Na: 40 meq K: 72 meq Phos: 22 mmol M meq Ca: 0 meq Acetate: 40 meq Cl: 40 meq Trace elements: 1 ml Provides Zinc 3 mg Copper 0.3 mg Manganese 55 mcg Selenium 60 mcg Zinc 7 mg Infuvite multivitamin: 10 ml Chloride to acetate ratio: 1 Dextrose mg/kg/min: 2.07 HOME TPN "RECIPE" -Resuming home TPN. -Using trace minerals and zinc; currently have no selenium, copper, or manganese. -Sodium acetate is on backorder; utilizing 40 meq of sodium chloride to provide some Na without administering too much chloride. -Administering TPN daily -Will taper on to administering over 12 hours if patient tolerates. 24 hours today, 16 hours tomorrow, and then 12 hours Monday . Contact the Pharmacy at extension [phone] if there are any questions. documented in this encounter H&P Notes * Ayo Carmela JARON Tucker - 09/20/2023 1:08 PM EDT Images from the original note were not included. [facility] 5A-5105/W PRESENTING PROBLEM: failure to thrive HPI: 58 year old female who presented to [facility] 09/20/2023 for planned, direct admission accepted by Dr. Alen Larsen on 09/19/2023 for failure to thrive. According to available records, patient, and correspondence from Dr. Larsen regarding admission, patient has been using TPN at home three days per week for 12 hours each session but continues to lose weight. Patient reports that she had been 90 lbs, then dropped to 80 lbs, and currently 73 lbs. She noted that she started TPN at home around 80 lbs. Shewas doing it for 12 hours five times per week. In continued follow-up with Dr. Wilkerson and nutritional support team, she noted that she had "no life" because she comes home from work then has to get hooked up to TPN for 12 hours and cannot go out anywhere. Because of this she notes that she decreasedthe TPN to just three times per week on MWF. There is some concern that she has not been compliant with this regimen. She states that she does take PO as she is able/hungry but continues to lose weight, has increasing weakness, LE edema at times, and has also been falling at home with the increasedweakness. As per Dr. Wilkerson, she is to be admitted for daily TPN which is resumption of this modality and concern for refeeding syndrome with restarting therapy. Patient is in agreement for plan with d/c plan to resume TPN 12 hours three times per week. 1410 Spoke with pharmacist, Guillermo Park. Labs ordered to start tomorrow, today's TPN ordered to start this evening, pharmacy detailed note in chart with plan to do 24 hours TPN today, 16 tomorrow, 12 Monday then resume her [facility] 12 hour schedule and d/c to home. Subjective Reports pain on coccyx area -- "It's just bones and no meat" Denies other sites of pain + generalized weakness Denies dizziness Denies fever or chills Denies SOB or cough Denies chest pain or palpitations + intermittent nausea without vomiting Denies abd pain + constipation at times then diarrhea other days -- typically has one formed stool per day but if she has diarrhea she reports 3-4 episodes of stools on those days + bilat LE edema + falls at home Ambulating with cane Smokes 1/2 to 1 ppd Denies alcohol or illicit drug use ROS otherwise negative Patient's past history, medications, and allergies were reviewed. Objective Physical Exam Most Recent Vital Signs: BP: 111 mmHg/76 mmHg (09/20/23 1454) Pulse: 88 (09/20/23 1454) Temp: 36.22 C (09/20/23 1454) Temp Summary: Temp Min: 35.9 C (96.6 F) Max: 36.2 C (97.2 F) SpO2: 96 % (09/20/23 1454) O2 flow rate: Supplemental O2 Delivery: Room Air, None (09/20/23 1454) Wt Readings from Last 3 Encounters: 09/20/23 33.6 kg (74 lb 1.6 oz) 08/15/23 35.4 kg (78 lb) 06/20/23 34.5 kg (76 lb) General: sitting at side of bed in room, in no acute distress Psych: pleasant, cooperative, good eye contact Neuro: alert, oriented X 3, fluent speech; moves all extremities without difficulty, follows simplecommands Eye Exam: Conjunctiva are pink and non-injected, sclera clear, no xanthelasma; wears glasses Ears: External ears normal Oropharynx: mucous membranes moist Heart: regular rate & rhythm, no murmurs, and no gallops Lungs: clear to auscultation, no wheezing, no rales, no rhonchi, respirations even and unlabored, no use of accessory muscles, no retractions Abdomen: abdomen soft, non-tender, normal bowel sounds in all 4 quadrants, and no rebound or guarding Back: No CVA tenderness, no tenderness to palpation, + kyphosis Extremities: trace bilat LE edema; no bilat calf tenderness, no clubbing, no cyanosis, capillary refill < 3 seconds Integumentary: Mead, warm, dry; no significant rashes or lesions; Allevyn intact over sacral/coccyxarea Chest: left tunneled catheter in place -- dressing clean, dry, intact, purple and white ports capped STUDIES: Encounter Orders Labs and other studies reviewed with pertinent findings noted below: Results for orders placed or performed in [...] g/dL ALT 17 10 - 35 U/L MAGNESIUM Result Value Ref Range Magnesium 1.7 1.5 - 2.6 mg/dL PHOSPHORUS Result Value Ref Range Phosphorus 3.6 2.5 - 4.8 mg/dL CALCIUM, IONIZED Result Value Ref Range Calcium, Ionized 1.35 (H) 1.13 - 1.32 mmol/L *Note: Due to a large number of results and/or encounters for the requested time period, some results have not been displayed. A complete set of results can be found in Results Review. XR CHEST 1 VIEW Result Date: 09/20/2023 IMPRESSION: 1. No acute cardiopulmonary disease. 2. Possible mild bronchitis. THIS DOCUMENT HAS BEEN ELECTRONICALLY SIGNED BY TERESA PATEL MD Assessment and Plan IMPRESSION: Principal Problem: Failure to thrive in adult Active Problems: Intestinal postoperative nonabsorption Chronic pain syndrome Hereditary and idiopathic peripheral neuropathy Cachexia (HCC) On total parenteral nutrition (TPN) MDD (major depressive disorder), recurrent episode, moderate (HCC) Bipolar disorder (HCC) Tobacco abuse Fall at home Generalized weakness Resolved Problems: * No resolved hospital problems. * DIFFERENTIAL AND PLAN: Failure to thrive in adult Intestinal postoperative nonabsorption Cachexia (HCC) On total parenteral nutrition (TPN) TPN as per pharmacy starting tonight X 24 hours, 16 hours tomorrow night, 12 hours Monday night then resume 12 hours MWF as per patient request and agreement with plans to d/c home if stable Labs in AM Continue DATA COLLECTION TECHNICIAN calcitriol 0.25 mcg daily, ergocalciferol 50, 000 units every other day I/O Daily weight Regular diet as tolerated Check orthostatic BPs Care management consult for d/c planning -- will need resumption of home TPN, supplies and ? Home health/therapy EKG today -- rule out arrhythmia/changes with FTT Chronic pain syndrome Hereditary and idiopathic peripheral neuropathy Continue DATA COLLECTION TECHNICIAN duloxetine 120 mg daily, pregabalin 25 mg BID Generalized weakness Falls at home PT/OT consults MDD (major depressive disorder), recurrent episode, moderate (HCC) Continue DATA COLLECTION TECHNICIAN mirtazapine ODT 45 mg QHS Bipolar disorder (HCC) Continue DATA COLLECTION TECHNICIAN olanzapine ODT 5 mg daily Tobacco abuse Nicotine replacement therapy Encourage tobacco cessation Other orders: Continue omeprazole 20 mg daily for GERD PRN APAP for pain/fever PRN alprazolam for insomnia as taken at home PRN dicyclomine for abd pain PRN ondansetron ODT for nausea Nursing to draw labs from [place] of tunneled catheter and administer TPN through [facility] [place] aspatient does at home -- nursing communication sent PHARMACOLOGIC VTE PROPHYLAXIS:Low risk, encourage ambulation and avoid patient having prolonged periods of sitting/immobility CODE STATUS: No Code, brother is whom patient designates to make medical decisions on her behalf ifshe would be unable to do so EXPECTED DISCHARGE DATE: Monday09/23/2023 Carmela Rollins, [place], GLASS CARRIER, ANP-C. CNE Nurse Practitioner [facility] Medicine Associated attestation - Wilma Mayo MD - 09/20/2023 3:57 PM EDT I have reviewed the advanced practitioner's documentation on the date of service referenced in note, and I agree with, and take responsibility for the plan of care. 58-year-old woman who was admitted for failure to thrive, continuing to lose weight despite being on TPN. Plan is to start TPN daily while inpatient per recommendation from outpatient physician/nutrition management team Monitor electrolytes including mag and phos Monitor for Refeeding syndrome Continue home meds I spent a total of 25 minutes coordinating, documenting, and providing care for this patient excluding time spent in the performance of separately billed services or time spent by another provider/QHP. documented in this encounter Procedure Notes * Anais Ramachandran MD - 10/01/2023 12:18 AM EDTAssociated Order(s): EKG REASON FOR STUDY: Chest pain CONCLUSIONS: Sinus tachycardia Low voltage QRS, consider pulmonary disease, pericardial effusion, or normal variant Septal infarct , age undetermined Abnormal ECG When compared with ECG of 28-Sep-2023 07:22, No significant change was found Ventricular Rate: 122 Atrial Rate: 122 W[place] Interval: 138 QRS Duration: 78 QT/QTc: 316/450 ms P-R-T [place]: 32 : -21 : 57 degrees * Joya Luna DO - 09/28/2023 7:22 AM EDTAssociated Order(s): EKG REASON FOR STUDY: Notify provider if obtaining EKG;Chest pain CONCLUSIONS: Sinus tachycardia Left axis deviation Pulmonary disease Septal infarct (cited on or before 28-Sep-2023) Abnormal ECG When compared with ECG of 28-Sep-2023 07:22, No significant change was found Ventricular Rate: 104 Atrial Rate: 104 W[place] Interval: 124 QRS Duration: 78 QT/QTc: 330/433 ms P-R-T [place]: 15 : -41 : 53 degrees * Gerald Osorio DO - 09/20/2023 3:28 PM EDTAssociated Order(s): EKG REASON FOR STUDY: Electrolyte abnormality CONCLUSIONS: Normal sinus rhythm Low voltage QRS, consider pulmonary disease, pericardial effusion, or normal variant Borderline ECG When compared with ECG of 08-Dec-2022 11:25, No significant change was found Ventricular Rate: 78 Atrial Rate: 78 W[place] Interval: 156 QRS Duration: 80 QT/QTc: 370/421 ms P-R-T [place]: 65 : 4 : 56 degrees documented in this encounter Consult Notes * Gerald Marshall MD - 10/02/2023 9:29 AM EDTAssociated Order(s): NEUROLOGY CONSULT IP TELENEUROLOGY CONSULT - Neurology [address] [address] Name: Chandrika Hogue Location: [facility] [id number]-[id number] Date: 10/02/2023 Time: 9:29 AM Gender: female : 1965 Patient location: HOSPITAL. I was not in a hospital or clinic location. After connecting through [employer], patient was identified by name and date of and/or wristband checked. Patient (or authorized legal human resources hr representative) was then informed that this was a Telemedicine visit and was being conducted confidentially over secure lines. My office door was closed. No one else was in the room with me.. Patient acknowledged consent and understanding of privacy and security of the Telemedicine visit and gave permission to have a telemedicine presenter stay in the room in order to assist with the history and to conduct the exam as needed. I informed the patient that I have reviewed their record in [employer] and presented the opportunity for them to ask any questions regarding the visit today. The patient agreed to participate. REFERRING SITE: [facility] REQUESTING SERVICE: patients request PRESENTING PROBLEM: weakness, urinary retention HPI: 58 year old female referred to Neurology for a second opinion. She reports that in 2017 she started having gait instability and started falling down. These symptoms have worsened to the point of nearly complete inability to ambulate safely and she had to quit her job and go on disability. She is currently admitted for failure to thrive and respiratory decline in the setting of multifocal pneumonia. She has been on TPN more than 2 years. She has a long history of neurologic evaluation and concern for multiple sclerosis and has been evaluated at [facility], and [facility] with negative lumbar punctures. She did have a gastic bypass in 1999 and it is suspected that her neurologic symptoms are secondary to small vessel disease and vitamin deficiency. 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 Bowden Iron deficiency anemia secondary to gastric bypass Migraine sees Dr. Shannon Nephrolithiasis 02/16/2021 Cysto 11/24/21 Other anxiety states Other vitamin B12 deficiency anemia secondary to gastric bypass Papanicolaou smear of cervix with atypical squamous cells cannot exclude high grade squamous intraepithelial lesion (ASC-H) 2009 mady 3 after colpo Tobacco use disorder Vitamin D deficiency PAST SURGICAL HISTORY: Past Surgical History: Procedure Laterality Date COLONOSCOPY W/ BIOPSY (RECTUM) 01/15/2007 normal COLONOSCOPY, DIAGNOSTIC (RECTUM) 12/10/2013 normal bx/COLONOSCOPY FLEXIBLE PROXIMAL DIAGNOSTIC performed by Olivia Hernandez MD at [facility] COLPOSCPY CERVIX W/BX AND EC 08/24/2009 Colposcopy with biopsies COLPSCPY CERVIX W/LOOP ELECT 09/24/2009 LEEP of cervix CYSTO W/URETER STRICTURE TX 07/19/2006 CYSTO/URETERO W/LITHOTRIPSY Right 11/24/2021 CYSTOURETHROSCOPY URETEROSCOPY WITH LITHOTRIPSY AND STENT INSERTION performed by Christopher Almonte MD at OR [facility] CYSTO/URETERO W/LITHOTRIPSY Right 05/02/2022 CYSTOURETHROSCOPY URETEROSCOPY WITH LITHOTRIPSY AND STENT INSERTION performed by Christopher Almonte MD at OR [facility] CYSTO/URETERO W/LITHOTRIPSY Right 09/26/2022 CYSTOURETHROSCOPY URETEROSCOPY WITH LITHOTRIPSY AND STENT INSERTION performed by Christopher Almonte MD at [facility] CYSTOSCOPY/INSERTION OF STENT 07/19/2006 CYSTOSCOPY/INSERTION OF STENT Right 05/16/2022 CYSTOURETHROSCOPY WITH INSERTION URETERAL STENT performed by Christopher Almonte MD at [facility] CYSTOSCOPY/URETERAL CATHETER Right 11/24/2021 CYSTOURETHROSCOPY WITH URETERAL CATHETER performed by Christopher Almonte MD at OR [facility] CYSTOURETERO W/LITHOTRIPSY 07/19/2006 EGD, FLEXIBLE, DIAGNOSTIC 11/09/2011 UPPER GI ENDOSCOPY DIAGNOSTIC performed by OLIVIA HRENANDEZ at [facility] EGD, FLEXIBLE, DIAGNOSTIC 04/19/2013 UPPER GI ENDOSCOPY DIAGNOSTIC performed by Tj Quarles MD at [facility] EGD, FLEXIBLE, DIAGNOSTIC 12/10/2013 normal/ESOPHAGOGASTRODUODENOSCOPY (EGD), FLEXIBLE, TRANSORAL, DIAGNOSTIC performed by Olivia Hernandez MD at [facility] EGD, FLEXIBLE, DIAGNOSTIC N/A 05/12/2015 ESOPHAGOGASTRODUODENOSCOPY (EGD), FLEXIBLE, TRANSORAL, DIAGNOSTIC performed by Herberth Chavez OR [facility] EGD, FLEXIBLE, PLACE GASTRO TUBE N/A 04/02/2021 ESOPHAGOGASTRODUODENOSCOPY (EGD), FLEXIBLE, TRANSORAL, WITH PERCUTANEOUS GASTROSTOMY INSERTION performed by Chris Suresh MD at [facility] EGD, FLEXIBLE, W/BIOPSY 01/20/2010 inflammation of stomach EGD, FLEXIBLE, W/CYST DRAINAGE N/A 01/04/2021 AXIOS stent performed/due to inability to localize a site for safe percutaneous placement for PEG not completed/ESOPHAGOGASTRODUODENOSCOPY (EGD), FLEXIBLE, TRANSORAL, WITH DRAINAGE PSEUDOCYST performed by Leyda Garcia MD at OR [facility] ERCP, DIAGNOSTIC, SPECIMEN COLLECTION 07/31/2013 ENDOSCOPIC RETROGRADE CHOLANGIOPANCREATOGRAPHY (ERCP) DIAGNOSTIC performed by Darian Griffin MD at OR [facility] GASTRIC BYPASS FOR OBESITY 06/26/2000 [place]/ [place] en y INFORMATION plastic surgery pannus, arms INFORMATION 2020 Heart Cath. INSER AMY CAT,W/O PUMP;5YR/OLD N/A 12/09/2022 INSERT TUNNELED CENTRAL VENOUS CATHETER AGE 5 OR OLDER performed by Cezar Lerma DO at OR [facility] IOF CT GUIDED NEEDLE BIOPSY 06/23/2014 CT GUIDED NEEDLE ASPIRATION BIOPSY performed by Kali Velez MD at RADIOLOGY [facility] JEJUNOSTOMY, LAPAROSCOPIC N/A 04/02/2021 LAPAROSCOPIC ILEOSTOMY OR JEJUNOSTOMY performed by Chris Suresh MD at [facility] LAP SURGICAL, GASTROSTOMY 02/12/2014 02/12/2014 LAPAROSCOPIC GASTROSTOMY WITHOUT RECONSTRUCION GASTRIC TUBE performed by Chris Suresh MD at [facility] LAPARO RADICAL NEPHRECTOMY Right 11/17/2022 LAPAROSCOPIC RADICAL NEPHRECTOMY performed by Christopher Almonte MD at [facility] LAPAROSCOPE PROCEDURE, LIVER 07/31/2013 UNLISTED LAPAROSCOPIC PROCEDURE LIVER performed by Chris Suresh MD at [facility] LAPAROSCOPY DIAGNOSTIC 07/31/2013 LAPAROSCOPY DIAGNOSTIC performed by Chris Suresh MD at [facility] LAPAROSCOPY DIAGNOSTIC N/A 05/12/2015 05/12/2015 LAPAROSCOPY DIAGNOSTIC performed by Chris Suresh MD at [facility]/ REDUCTION OF BOWEL OBSTRUCTION 06/26/2004 Dr. Temple REMOVE GALLBLADDER 06/26/1979 FAMILY HISTORY: Family History Problem Relation Age of Onset Heart Disorder Mother elderly Hypertension Mother Kidney disease Father Brain cancer Father (possibly) Family History: non contributory SOCIAL HISTORY: Social History Tobacco Use Smoking status: Every Day Current packs/day: 0.50 Average packs/day: 0.5 packs/day for 30.0 years (15.0 ttl pk-yrs) Types: Cigarettes Smokeless tobacco: Never Vaping Use Vaping Use: Never used Substance Use Topics Alcohol use: Not Currently Comment: occ Drug use: No see above CURRENT MEDICATIONS: Note that completed medications (per the MAR) continue to display for 24 hours. Ordered medicationsto be given in the future also display. Current Facility-Administered Medications Medication Dose Route Frequency Provider Adult TPN central IV + Thiamine +Zinc + Octreotide 1,200 mL Intravenous TPN 1800 Rock, DO Cookie Albuterol Sulfate (Proventil) (2.5 MG/3ML) 0.083% inhalation solution 2.5 mg 2.5 mg Nebulizer Q4H PRN Jess Carranza MD cefepime in dextrose (Maxipime) ivpb 1 g 1 g IV Piggyback Q12H NOW Adiel Toussaint MD oxygen GAS Inhalation Oxygen Adiel Toussaint MD sodium bicarbonate tab 1,300 mg 1,300 mg Oral BID(AM/PM) Kyler Teresa MD Cholestyramine Light (Prevalite) oral powder 4 g 4 g Oral Daily 1000 Aris Bacon DO oxyCODONE (Oxy IR) tab 5 mg 5 mg Oral Q6H PRN Aris Bacon, Vitamin E (Aquasol E) cap 400 Units 400 Units Oral Daily(AM) Aris Bacon, Simethicone (Mylicon) chew tab 80 mg 80 mg Oral Q6H PRN Aris Bacon, diphenoxylate-atropine 2.5-0.025 mg per tab (Lomotil) 2 Tablet 2 Tablet Oral Q6H PRN Wilner Gross MD traMADol (Ultram) tab 50 mg 50 mg Oral Q6H PRN Wilner Gross MD Ferrous Sulfate (Feosol) tab 325 mg 325 mg Oral Daily Noon Wilner Gross MD Vitamin C (Ascorbic Acid) tab 250 mg 250 mg Oral Daily Noon Wilner Gross MD ALPRAZolam (xaNAX) tab 0.25 mg 0.25 mg Oral HS PRN Wilner Gross MD Docusate Sodium (Colace) cap 100 mg 100 mg Oral BID PRN Wilner Gross MD promethazine (Phenergan) tab 25 mg 25 mg Oral Q4H PRN Wilner Gross MD SUMAtriptan (Imitrex) tab 50 mg 50 mg Oral Q2H PRN Wilner Gross MD zykwruecfe-gmyygboyychgx-pjuwmgrm 50-325-40 mg per tab (Fioricet) 1 Tablet 1 Tablet Oral Q6H PRN Wilner Gross MD Calcitriol (Rocaltrol) cap 0.25 mcg 0.25 mcg Oral M;W;F Carmela Rollins CRNP dicyclomine (Bentyl) cap 20 mg 20 mg Oral QID PRN Carmela Rollins CRNP DULoxetine (Cymbalta) DR cap 120 mg 120 mg Oral Daily(AM) Carmela Rollins CRNP Ergocalciferol (Vitamin D2(Drisdol)) cap 50,000 Units 50,000 Units Oral Every other day Joanna Rollins CRNP Lidocaine (Aspercreme) 4 % patch 1 Patch 1 Patch Transdermal Daily 1800 Wilma Mayo MD mirtazapine ODT (Remeron Soltab) tab 45 mg 45 mg Oral QHS White, Carmela A, GLASS CARRIER Nicotine (Nicoderm CQ) 21 MG/24HR patch 1 Patch 1 Patch Transdermal Daily 1800 Wilma Mayo MD OLANZapine ODT (zyPREXA zyDIS) tab 5 mg 5 mg On Tongue Daily(AM) White, Carmela A GLASS CARRIER omeprazole (PriLOSEC) cap 20 mg 20 mg Oral Daily(AM) White, Carmela A, GLASS CARRIER ondansetron ODT (Zofran) tab 4 mg 4 mg On Tongue Q8H PRN White, Carmela A, GLASS CARRIER Pregabalin (Lyrica) cap 25 mg 25 mg Oral BID(AM/PM) WhiteCarmela CRNP QUEtiapine (SEROquel) tab 50 mg 50 mg Oral QHS PRN Phuc Cedillo PA-C sodium chloride 0.9 % flush central line 10 mL 10 mL IV Push Q8H Carmela Rollins CRNP sodium chloride 0.9 % flush/inj 3 mL 3 mL IV Push PRN WhiteCarmela CRNP ALLERGIES: Amoxicillin, Sulfa antibiotics, and Oxybutynin ROS: All negative other than as noted in HPI PHYSICAL EXAMINATION: Most Recent Vital Signs: BP: 110 mmHg/65 mmHg (10/02/23724) Pulse: 96 (10/02/23724) Temp: 36.72 C (10/02/23724) Temp Summary: Temp Min: 35.6 C (96.1 F) Max: 37.8 C (100 F) SpO2: 93 % (10/02/23799) O2 flow rate: 5 L/MIN (10/01/234) Supplemental O2 Delivery: Nasal Cannula (10/02/23799) Vital Signs Last 24 Hours: Systolic BP: Most Recent Systolic BP Av mmHg Min: 96 mmHg Max: 124 mmHg Temperature: Most Recent Temperature Av.6 C Min: 35.61 C Max: 37.78 C Pulse: Pulse Av.5 Min: 82 Max: 115 Respirations: Resp Av.3 Min: 18 Max: 36 SpO2: SpO2 Av.1 % Min: 86 % Max: 97 % Weight: Weight Av.1 kg (95 lb) Min: 43.1 kg (95 lb) Max: 43.1 kg (95 lb) Exam: Constitutional: Appearance abnormals: cachetic Head and face: normocephalic and atraumatic Eyes: no ptosis, no anisocoria, and no dysconjugate gaze Respiratory: abnormals: tachypnea Cardiovascular: regular rhythm and regular rate Abdomen: non distended NEUROLOGIC EXAMINATION: Mental Status:alert, oriented to time, place, person, normal recent memory, normal remote memory, normal attention span, normal concentration, normal language, and normal fund of knowledge Cranial Nerves: CN 2 - no visual defect on confrontation and pupils round, equal, reactive to light CN 3, 4, 6 - extra-ocular movements intact and no nystagmus CN 5 - facial sensation intact CN 7 - no facial asymmetry CN 8 - intact hearing CN 9, 10 - palate symmetric, normal gag CN 11 - good shoulder shrug CN 12 - tongue midline MOTOR: Strength was at least antigravity throughout, Pronator drift was absent, and There were no abnormal movements SENSATION: intact GAIT: deferred COORDINATION: no ataxia with finger to nose testing and heel to almaraz testing LABORATORY: Labs reviewed and pertinent findings are indicated below: Cr 1.5, Cu 85, B1 7, zinc 38 I personally reviewed the following images. My findings and interpretations are as follows: Study: MRI brain without contrast: Significant, nearly confluent, white matter disease subcortically and in the gilbert 09/16 IMPRESSION: Gait instability in a 58F with a PMH of tobacco abuse, prior gastric bypass and multiple vitamin deficiencies. On exam she is globally weak, but there is no GREG and she moves extremities against gravity. MRI completed on 09/16 does show significant white matter disease but this is non-specific and is in llocations more consistent with small vessel disease than multiple sclerosis. She reports having received conflicting information regarding the diagnosis of multiple sclerosis but only has had one LP. RECOMMENDATIONS / PLAN: -- would check manganese (if not checked previously) given long goods drier usage of TPN -- MRI T-spine with and without contrast -- LP with cell count, protein, glucose and MS panel -- hold on steroids Patient Has Decision Making Capacity: yes Remain at current hospital. I discussed the results of my evaluation of the patient, the pertinent imaging findings, and the above recommendations with the following provider, Dr Carranza. Inpatient Telemedicine: Pre-service diagnostic interpretation including radiologic images. Pre-service communicating with other health professionals and/or family members. Intra-service comprehensive history. Intra-service comprehensive examination. Intra-service high complexity medical decision making. Post-service completing medical records and other documentation. Patient interaction performed via interactive audio and video telecommunication system. Total time spent 45 minutes. * Isaias Rendon Jr., MD - 10/02/2023 8:09 AM EDTAssociated Order(s): UROLOGY CONSULT IP CONSULT - Urology [facility]-[address] [id number] Name: Chandrika Hogue Location: [facility] 5A-5105/W Date: 10/02/2023 Time: 8:09 AM REQUESTING SERVICE: Medicine PRESENTING PROBLEM: Urinary retention. HPI: She presents with a complex history of failure to thrive. She is known to have urinary incontinence and had seen Dr. Almonte in the past who recommended Myrbetriq which she could not afford. On this hospitalization she was found to have incomplete bladder emptying and a yin cathete was placed. Ultrasound imaging showed a small non obstructing right stone. FINDINGS: Right kidney: Surgically absent. Left kidney: 10.9 x 4.1 x 4.9 cm. 4 mm calcification in the midportion with moderate hydronephrosis. Urinary bladder: Distended bladder with increased postvoid residue. Bladder diverticulum. Her initial urine was clear. 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 (HCC) 02/06/2017 Depressive disorder, not elsewhere [...] colpo Tobacco use disorder Vitamin D deficiency PAST SURGICAL HISTORY: Past Surgical History: Procedure Laterality Date COLONOSCOPY W/ BIOPSY (RECTUM) 01/15/2007 normal COLONOSCOPY, DIAGNOSTIC (RECTUM) 12/10/2013 normal bx/COLONOSCOPY FLEXIBLE PROXIMAL DIAGNOSTIC performed by Olivia Hernandez MD at [facility] COLPOSCPY CERVIX W/BX AND EC 08/24/2009 Colposcopy with biopsies COLPSCPY CERVIX W/LOOP ELECT 09/24/2009 LEEP of cervix CYSTO W/URETER STRICTURE TX 07/19/2006 CYSTO/URETERO W/LITHOTRIPSY Right 11/24/2021 CYSTOURETHROSCOPY URETEROSCOPY WITH LITHOTRIPSY AND STENT INSERTION performed by Christopher Almonte MD at OR [facility] CYSTO/URETERO W/LITHOTRIPSY Right 05/02/2022 CYSTOURETHROSCOPY URETEROSCOPY WITH LITHOTRIPSY AND STENT INSERTION performed by Christopher Almonte MD at OR [facility] CYSTO/URETERO W/LITHOTRIPSY Right 09/26/2022 CYSTOURETHROSCOPY URETEROSCOPY WITH LITHOTRIPSY AND STENT INSERTION performed by Christopher Almonte MD at OR [facility] CYSTOSCOPY/INSERTION OF STENT 07/19/2006 CYSTOSCOPY/INSERTION OF STENT Right 05/16/2022 CYSTOURETHROSCOPY WITH INSERTION URETERAL STENT performed by Christopher Almonte MD at OR [facility] CYSTOSCOPY/URETERAL CATHETER Right 11/24/2021 CYSTOURETHROSCOPY WITH URETERAL CATHETER performed by Christopher Almonte MD at OR [facility] CYSTOURETERO W/LITHOTRIPSY 07/19/2006 EGD, FLEXIBLE, DIAGNOSTIC 11/09/2011 UPPER GI ENDOSCOPY DIAGNOSTIC performed by OLIVIA HERNANDEZ at [facility] EGD, FLEXIBLE, DIAGNOSTIC 04/19/2013 UPPER GI ENDOSCOPY DIAGNOSTIC performed by Tj Quarles MD at [facility] EGD, FLEXIBLE, DIAGNOSTIC 12/10/2013 normal/ESOPHAGOGASTRODUODENOSCOPY (EGD), FLEXIBLE, TRANSORAL, DIAGNOSTIC performed by Olivia Hernandez MD at [facility] EGD, FLEXIBLE, DIAGNOSTIC N/A 05/12/2015 ESOPHAGOGASTRODUODENOSCOPY (EGD), FLEXIBLE, TRANSORAL, DIAGNOSTIC performed by Herberth Chavez OR [facility] EGD, FLEXIBLE, PLACE GASTRO TUBE N/A 04/02/2021 ESOPHAGOGASTRODUODENOSCOPY (EGD), FLEXIBLE, TRANSORAL, WITH PERCUTANEOUS GASTROSTOMY INSERTION performed by Chris Suresh MD at OR [facility] EGD, FLEXIBLE, W/BIOPSY 01/20/2010 inflammation of stomach EGD, FLEXIBLE, W/CYST DRAINAGE N/A 01/04/2021 AXIOS stent performed/due to inability to localize a site for safe percutaneous placement for PEG not completed/ESOPHAGOGASTRODUODENOSCOPY (EGD), FLEXIBLE, TRANSORAL, WITH DRAINAGE PSEUDOCYST performed by Leyda Garcia MD at OR [facility] ERCP, DIAGNOSTIC, SPECIMEN COLLECTION 07/31/2013 ENDOSCOPIC RETROGRADE CHOLANGIOPANCREATOGRAPHY (ERCP) DIAGNOSTIC performed by Darian Griffin MD at OR [facility] GASTRIC BYPASS FOR OBESITY 06/26/2000 [place]/ [place] en y INFORMATION plastic surgery pann[place], arms INFORMATION [facility] Heart Cath. INSER AMY CAT,W/O PUMP;5YR/OLD N/A 12/09/2022 INSERT TUNNELED CENTRAL VENOUS CATHETER AGE 5 OR OLDER performed by Cezar Lerma DO at OR [facility] IOF CT GUIDED NEEDLE BIOPSY 06/23/2014 CT GUIDED NEEDLE ASPIRATION BIOPSY performed by Kali Velez MD at RADIOLOGY [facility] JEJUNOSTOMY, LAPAROSCOPIC N/A 04/02/2021 LAPAROSCOPIC ILEOSTOMY OR JEJUNOSTOMY performed by Chris Suresh MD at [facility] LAP SURGICAL, GASTROSTOMY 02/12/2014 02/12/2014 LAPAROSCOPIC GASTROSTOMY WITHOUT RECONSTRUCION GASTRIC TUBE performed by Chris Suresh MD at [facility] LAPARO RADICAL NEPHRECTOMY Right 11/17/2022 LAPAROSCOPIC RADICAL NEPHRECTOMY performed by Christopher Almonte MD at [facility] LAPAROSCOPE PROCEDURE, LIVER 07/31/2013 UNLISTED LAPAROSCOPIC PROCEDURE LIVER performed by Chris Suresh MD at [facility] LAPAROSCOPY DIAGNOSTIC 07/31/2013 LAPAROSCOPY DIAGNOSTIC performed by Chris Suresh MD at [facility] LAPAROSCOPY DIAGNOSTIC N/A 05/12/2015 05/12/2015 LAPAROSCOPY DIAGNOSTIC performed by Chris Suresh MD at [facility]/ REDUCTION OF BOWEL OBSTRUCTION 06/26/2004 Dr. Temple REMOVE GALLBLADDER 06/26/1979 FAMILY HISTORY: Family History Problem Relation Age of Onset Heart Disorder Mother elderly Hypertension Mother Kidney disease Father Brain cancer Father (possibly) SOCIAL HISTORY: Social History Tobacco Use Smoking status: Every Day Current packs/day: 0.50 Average packs/day: 0.5 packs/day for 30.0 years (15.0 ttl pk-yrs) Types: Cigarettes Smokeless tobacco: Never Vaping Use Vaping Use: Never used Substance Use Topics Alcohol use: Not Currently Comment: occ Drug use: No ALLERGIES: Amoxicillin, Sulfa antibiotics, and Oxybutynin REVIEW OF SYSTEMS: Per H&P PHYSICAL EXAMINATION: Most Recent Vital Signs: BP: 110 mmHg/65 mmHg (10/02/23724) Pulse: 96 (10/02/23724) Temp: 36.72 C (10/02/23724) Temp Summary: Temp Min: 35.6 C (96.1 F) Max: 37.8 C (100 F) SpO2: 95 % (10/02/23724) O2 flow rate: 5 L/MIN (10/01/232323) Supplemental O2 Delivery: Non-Invasive CPAP/BiPAP (10/02/23724) General: alert, awake, oriented to person and place and situation Heart: regular rate, regular rhythm, no murmur Chest: clear to auscultation bilaterally Abdomen: soft, non-tender, non-distended Back: no costo-vertebral angle tenderness Extremities: trace edema bilateral lower extremities : catheter in place with clear urine LAB LINKS:Labs reviewed as indicated below: reviewed CULTURES: negative urine IMAGING: US noted IMPRESSION: 58 year old female for urinary retention with history of incontinence , bladder diverticula and nonobstructive kidney stone. She currently need a catheter to empty and we discussed options includinglong term yin, self cath and voiding on her own with timed voiding. Her general poor condition and her medications are a part of this problem emptying. PLAN: I would recommend a voiding trial tomorrow with timed voiding and checking residuals. If se empties well then we can avoid longer term catheter use. We are recommending timed voiding to help with the urinary symptoms. This is done to prevent the bladder from becoming too full. The patient should monitor their voiding pattern and fluid intake. We usually have the patient void every hour or two while awake and void twice in the morning and in the evening. Patient seen by Dr. Rendon. * Reji Nicholsa MD - 10/01/2023 9:00 AM EDTAssociated Order(s): THORACIC MEDICINE / PULMONOLOGY CONSULT IP CONSULT - Thoracic / Pulmonary Medicine [facility]-[address] [id number] Name: Chandrika Hogue Location: [facility] [id number] Date: 10/01/2023 Time: 9:00 AM REQUESTING SERVICE: Medicine REASON FOR CONSULT: "ARDS" and new hypoxia, abnormal CXR HISTORY OF PRESENT ILLNESS: In summary, Ms. Hogue is a 58-year-old female with a history of remote Amber-en-Y gastric bypass (1999) with subsequent malabsorption and failure to thrive, migraine headache, and active tobacco abusewho was admitted on September 19 for ongoing weight loss issues. The plan was to administer daily TPNand monitor for refeeding syndrome. Her course since then has been complicated by acute kidney injury and anemia. Over the past 24 hours she has developed new dyspnea and an oxygen requirement for which Thoracic Medicine is consulted. Maribel reports no prior lung issues. At baseline she can walk up 1 flight of steps before she has tostop to catch her breath. She continued smoking daily until the time of her admission. She does notuse oxygen or inhalers at baseline. She has had no prior pulmonary function test or pulmonary clinic evaluations. Over the past few days she denies any fevers, productive cough, wheeze, or hemoptysis. She does report a sensation of chest tightness and trouble catching her breath over the past 24 hours. She feels somewhat better with supplemental oxygen, currently at 4 liters/minute. Of note she did not require any oxygen earlier in her admission. Chart review shows that she has a prior echocardiogram from 2018 and 2019. These studies were notable for preserved left and right ventricular function but positive for small patent foramen ovale with a [id number] shunt. She has had no interval echocardiogram studies. She is many L positive since admission. It is on certain how accurate this is how she as she has not had a Yin catheter in place her entire admission. Her weight has increased from about 37-44 kilos this admission. She has had several chest x-rays this admission. Her chest x-ray on admission was relatively clear but a study performed in the past 24 hours shows new patchy bilateral airspace disease. 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 Bowden Iron deficiency anemia secondary to gastric bypass Migraine sees Dr. Shannon Nephrolithiasis 02/16/2021 Cysto 11/24/21 Other anxiety states Other vitamin B12 deficiency anemia secondary to gastric bypass Papanicolaou smear of cervix with atypical squamous cells cannot exclude high grade squamous intraepithelial lesion (ASC-H) 2009 mady 3 after colpo Tobacco use disorder Vitamin D deficiency PAST SURGICAL HISTORY: Past Surgical History: Procedure Laterality Date COLONOSCOPY W/ BIOPSY (RECTUM) 01/15/2007 normal COLONOSCOPY, DIAGNOSTIC (RECTUM) 12/10/2013 normal bx/COLONOSCOPY FLEXIBLE PROXIMAL DIAGNOSTIC performed by Olivia Hernandez MD at [facility] COLPOSCPY CERVIX W/BX AND EC 08/24/2009 Colposcopy with biopsies COLPSCPY CERVIX W/LOOP ELECT 09/24/2009 LEEP of cervix CYSTO W/URETER STRICTURE TX 07/19/2006 CYSTO/URETERO W/LITHOTRIPSY Right 11/24/2021 CYSTOURETHROSCOPY URETEROSCOPY WITH LITHOTRIPSY AND STENT INSERTION performed by Christopher Almonte MD at OR [facility] CYSTO/URETERO W/LITHOTRIPSY Right 05/02/2022 CYSTOURETHROSCOPY URETEROSCOPY WITH LITHOTRIPSY AND STENT INSERTION performed by Christopher Almonte MD at [facility] CYSTO/URETERO W/LITHOTRIPSY Right 09/26/2022 CYSTOURETHROSCOPY URETEROSCOPY WITH LITHOTRIPSY AND STENT INSERTION performed by Christopher Almonte MD at [facility] CYSTOSCOPY/INSERTION OF STENT 07/19/2006 CYSTOSCOPY/INSERTION OF STENT Right 05/16/2022 CYSTOURETHROSCOPY WITH INSERTION URETERAL STENT performed by Christopher Almonte MD at [facility] CYSTOSCOPY/URETERAL CATHETER Right 11/24/2021 CYSTOURETHROSCOPY WITH URETERAL CATHETER performed by Christopher Almonte MD at OR [facility] CYSTOURETERO W/LITHOTRIPSY 07/19/2006 EGD, FLEXIBLE, DIAGNOSTIC 11/09/2011 UPPER GI ENDOSCOPY DIAGNOSTIC performed by OLIVIA HERNANDEZ at [facility]COPY [facility] EGD, FLEXIBLE, DIAGNOSTIC 04/19/2013 UPPER GI ENDOSCOPY DIAGNOSTIC performed by Tj Quarles MD at [facility] EGD, FLEXIBLE, DIAGNOSTIC 12/10/2013 normal/ESOPHAGOGASTRODUODENOSCOPY (EGD), FLEXIBLE, TRANSORAL, DIAGNOSTIC performed by Olivia Hernandez MD at [facility] EGD, FLEXIBLE, DIAGNOSTIC N/A 05/12/2015 ESOPHAGOGASTRODUODENOSCOPY (EGD), FLEXIBLE, TRANSORAL, DIAGNOSTIC performed by Chris Suresh MDat OR [facility] EGD, FLEXIBLE, PLACE GASTRO TUBE N/A 04/02/2021 ESOPHAGOGASTRODUODENOSCOPY (EGD), FLEXIBLE, TRANSORAL, WITH PERCUTANEOUS GASTROSTOMY INSERTION performed by Chris Suresh MD at [facility] EGD, FLEXIBLE, W/BIOPSY 01/20/2010 inflammation of stomach EGD, FLEXIBLE, W/CYST DRAINAGE N/A 01/04/2021 AXIOS stent performed/due to inability to localize a site for safe percutaneous placement for PEG not completed/ESOPHAGOGASTRODUODENOSCOPY (EGD), FLEXIBLE, TRANSORAL, WITH DRAINAGE PSEUDOCYST performed by Leyda Garcia MD at OR [facility] ERCP, DIAGNOSTIC, SPECIMEN COLLECTION 07/31/2013 ENDOSCOPIC RETROGRADE CHOLANGIOPANCREATOGRAPHY (ERCP) DIAGNOSTIC performed by Darian Griffin MD at OR [facility] GASTRIC BYPASS FOR OBESITY 06/26/2000 [place]/ [place] en y INFORMATION plastic surgery pannus, arms INFORMATION 2020 Heart Cath. INSER AMY CAT,W/O PUMP;5YR/OLD N/A 12/09/2022 INSERT TUNNELED CENTRAL VENOUS CATHETER AGE 5 OR OLDER performed by Cezar Lerma DO at OR [facility] IOF CT GUIDED NEEDLE BIOPSY 06/23/2014 CT GUIDED NEEDLE ASPIRATION BIOPSY performed by Kali Velez MD at RADIOLOGY [facility] JEJUNOSTOMY, LAPAROSCOPIC N/A 04/02/2021 LAPAROSCOPIC ILEOSTOMY OR JEJUNOSTOMY performed by Chris Suresh MD at OR [facility] LAP SURGICAL, GASTROSTOMY 02/12/2014 02/12/2014 LAPAROSCOPIC GASTROSTOMY WITHOUT RECONSTRUCION GASTRIC TUBE performed by Chris Suresh MD at OR [facility] LAPARO RADICAL NEPHRECTOMY Right 11/17/2022 LAPAROSCOPIC RADICAL NEPHRECTOMY performed by Christopher Almonte MD at OR [facility] LAPAROSCOPE PROCEDURE, LIVER 07/31/2013 UNLISTED LAPAROSCOPIC PROCEDURE LIVER performed by Chris Suresh MD at [facility] LAPAROSCOPY DIAGNOSTIC 07/31/2013 LAPAROSCOPY DIAGNOSTIC performed by Chris Suresh MD at [facility] LAPAROSCOPY DIAGNOSTIC N/A 05/12/2015 05/12/2015 LAPAROSCOPY DIAGNOSTIC performed by Chris Suresh MD at [facility]/ REDUCTION OF BOWEL OBSTRUCTION 06/26/2004 Dr. Temple REMOVE GALLBLADDER 06/26/1979 FAMILY HISTORY: Family History Problem Relation Age of Onset Heart Disorder Mother elderly Hypertension Mother Kidney disease Father Brain cancer Father (possibly) SOCIAL HISTORY: Social History Tobacco Use Smoking status: Every Day Current packs/day: 0.50 Average packs/day: 0.5 packs/day for 30.0 years (15.0 ttl pk-yrs) Types: Cigarettes Smokeless tobacco: Never Vaping Use Vaping Use: Never used Substance Use Topics Alcohol use: Not Currently Comment: occ Drug use: No ALLERGIES: Amoxicillin, Sulfa antibiotics, and Oxybutynin ROS: Per HPI and below Constitutional: (-) fever chills sweats or weight loss this admit ENT: (-) sinus trouble Cardiovascular: (+) exertional dyspnea, (+) lower extremity edema, and (-) chest pain Pulmonary: (+) dyspnea, (+) dyspnea with exertion, and (-) sputum, (-) hemoptysis, and (-) wheezing Abdominal/GI: (-) negative: no pain, heartburn, dysphagia, bleeding, change in bowel habits, nauseaor vomiting Musculoskeletal: (-) negative: no pain Hematology/oncology: (-) negative: no fever, night sweats, masses, or swollen nodes Skin: (-) persistent rash Neurology: (-) negative: no focal neurologic defect Psychiatry: (+) depression PHYSICAL EXAMINATION: Most Recent Vital Signs: BP: 98 mmHg/68 mmHg (10/01/23712) Pulse: 98 (10/01/23712) Temp: 36.61 C (10/01/23712) Temp Summary: Temp Min: 36 C (96.8 F) Max: 37.1 C (98.8 F) SpO2: 96 % (10/01/23712) O2 flow rate: 4 L/MIN (10/01/23722) Supplemental O2 Delivery: Nasal Cannula (10/01/23722) O2 Mode: O2 %: O2 Flow Rate: O2 flow rate: 4 L/MIN (10/01/23722) IPAP: CPAP/EPAP: Vital Signs Last 24 Hours: Systolic BP: Most Recent Systolic BP Av.2 mmHg Min: 97 mmHg Max: 125 mmHg Temperature: Most Recent Temperature Av.6 C Min: 36 C Max: 37.11 C Pulse: Pulse Av Min: 89 Max: 124 Respirations: Resp Av Min: 18 Max: 18 SpO2: SpO2 Av.6 % Min: 84 % Max: 98 % Constitutional: thin, alert, no distress, non toxic HEENT: oral mucosa moist Neck: supple, no LAD CV: regular, no murmurs, PMI normal Chest: few anterior crackles, rest clear; no wheeze or rhonchi Abdomen: soft, mild diffuse TTP Musculoskeletal: warm, well perfused; mediport in place in L chest Extremities: pitting edema of LE bilaterally Skin: intact, no rash Neuro: grossly normal, sits up in in bed unassisted LABS: Labs reviewed as indicated below: BUN 92 (increasing), SCr 1.8 (baseline 1) ABG 7.34/32/80 Trop 41 WBC 17, Hgb 7.2 (stable on repeat but decreased from admit at 9-10), plt 289 LA 0.9 Phos 3.6 Blood Cx pending CLINICIAN REVIEW OF CXR: Chest x-rays from September 30 are compared to those from the time of admission (September 19)-compared to the admission chest x-ray, which is mostly clear, studies from the past 24 hours show new patchy bilateral airspace disease along with probable very small bilateral effusions; while there is some rotation to the chest x-ray the right heart border does look enlarged CLINICIAN REVIEW OF CT THORAX: There are no recent chest CTs available for review IMPRESSION: 58-year-old female with remote gastric bypass and subsequent malabsorption syndrome admitted with failure to thrive and TPN, course complicated by acute kidney injury and new acute hypoxic respiratory failure. I suspect her acute hypoxic respiratory failure is pulmonary edema in nature.She is multiple L positive since admission, further supported by an increasing weight and lower extremity edema. Her prior echocardiogram had suggested minor abnormalities that may have progressed and her chest x-ray was suggestive of right heart enlargement; she may have an underlying cardiac process. While her white blood cell count is elevated she is afebrile and infection seems less likely. Her hemoglobin is dropping from admission and alveolar hemorrhage would be in the differential although she has not had any hemoptysis. More likely, her anemia is due to slow GI bleed, supported by markedly increasing BUN. Patient was admitted for a primary diagnosis of COPD Exacerbation: no Patient has a diagnosis of COPD: no Does this patient have hypercarbic respiratory failure (pCO2 greater than 52)? No Patient is being followed by a Reel Worker: no PULMONARY CONSULTATION SUGGESTION(S): Monitor fluid balance, consider gentle diuresis to ensure net negative/even daily Repeat TTE Send pBNP Send respiratory culture (if possible), PCT, MRSA screen, RVP and legionella urinary antigen; ok tocontinue cefepime for now but consider stopping in next 24-48 hours if diagnostic studies negative Trend Hgb; doubt brisk GIB bleed although rising BUN suggests slow GIB possible; PPI; consider GI evaluation (although may need MIS evaluation given prior RNY GBP, defer to consultants) If pRBC transfusion necessary consider giving concurrent IV diuretic Wean O2 for POx > 90% Encouraged tobacco cessation Pulmonary clinic follow up, baseline PFTs, repeat CXR to ensure clearing PCCM will continue to follow with you. Please call with questions. Reji Nicholas MD 10/01/2023 9:25 AM * Darian Hill CRNP - 10/01/2023 5:28 AM EDTAssociated Order(s): CRITICAL CARE MEDICINE CONSULT IP REQUESTING SERVICE: Hospital Medicine REASON FOR CONSULT: Decreasing kidney FX, ARDS HPI: 58 year old female who presented to [facility] 09/20/2023 for planned, direct admission accepted by Dr. Alen Larsen on 09/19/2023 for failure to thrive. According to available records, patient, and correspondence from Dr. Larsen regarding admission, patient has been using TPN at home three days per week for 12 hours each session but continues to lose weight. Patient reports that she had been 90 lbs, then dropped to 80 lbs, and currently 73 lbs. She noted that she started TPN at home around 80 lbs. Shewas doing it for 12 hours five times per week. In continued follow-up with Dr. Wilkerson and nutritional support team, she noted that she had "no life" because she comes home from work then has to get hooked up to TPN for 12 hours and cannot go out anywhere. Because of this she notes that she decreasedthe TPN to just three times per week on MWF. There is some concern that she has not been compliant with this regimen. She states that she does take PO as she is able/hungry but continues to lose weight, has increasing weakness, LE edema at times, and has also been falling at home with the increasedweakness. As per Dr. Wilkerson, she is to be admitted for daily TPN which is resumption of this modality and concern for refeeding syndrome with restarting therapy. Patient is in agreement for plan with d/c plan to resume TPN 12 hours three times per week. 1410 Spoke with pharmacist, Guillermo Park. Labs ordered to start tomorrow, today's TPN ordered to start this evening, pharmacy detailed note in chart with plan to do 24 hours TPN today, 16 tomorrow, Monday then resume her MWF 12 hour schedule and d/c to home. 10/01/23- [facility] was consulted by Dr. Toussaint for ARDS, and decreasing kidney function. The pt stated that she had been at the hospital for approximately 1 week for failure to thrive. Ms. Hogue had a port placed and is currently on TPN. Ms. Hogue has had increased oxygen demand over night and had to beplaced on 4LNC, PCXR showed multifocal pneumonia in which medicine team placed antibiotic therapy, yin catheter was placed for urinary retention of what was measured to be approximately 1 Liter. 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 Labs were ordered and patients hemoglobin is below baseline. Blood products will be ordered if consent is given. Jovanna follow patient labs. 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 Bowden Iron deficiency anemia secondary to gastric bypass Migraine sees Dr. Shannon Nephrolithiasis 02/16/2021 Cysto 11/24/21 Other anxiety states Other vitamin B12 deficiency anemia secondary to gastric bypass Papanicolaou smear of cervix with atypical squamous cells cannot exclude high grade squamous intraepithelial lesion (ASC-H) 2009 mady 3 after colpo Tobacco use disorder Vitamin D deficiency PAST SURGICAL HISTORY: Past Surgical History: Procedure Laterality Date COLONOSCOPY W/ BIOPSY (RECTUM) 01/15/2007 normal COLONOSCOPY, DIAGNOSTIC (RECTUM) 12/10/2013 normal bx/COLONOSCOPY FLEXIBLE PROXIMAL DIAGNOSTIC performed by Olivia Hernandez MD at [facility] COLPOSCPY CERVIX W/BX AND EC 08/24/2009 Colposcopy with biopsies COLPSCPY CERVIX W/LOOP ELECT 09/24/2009 LEEP of cervix CYSTO W/URETER STRICTURE TX 07/19/2006 CYSTO/URETERO W/LITHOTRIPSY Right 11/24/2021 CYSTOURETHROSCOPY URETEROSCOPY WITH LITHOTRIPSY AND STENT INSERTION performed by Christopher Almonte MD at OR [facility] CYSTO/URETERO W/LITHOTRIPSY Right 05/02/2022 CYSTOURETHROSCOPY URETEROSCOPY WITH LITHOTRIPSY AND STENT INSERTION performed by Christopher Almonte MD at OR [facility] CYSTO/URETERO W/LITHOTRIPSY Right 09/26/2022 CYSTOURETHROSCOPY URETEROSCOPY WITH LITHOTRIPSY AND STENT INSERTION performed by Christopher Almonte MD at OR [facility] CYSTOSCOPY/INSERTION OF STENT 07/19/2006 CYSTOSCOPY/INSERTION OF STENT Right 05/16/2022 CYSTOURETHROSCOPY WITH INSERTION URETERAL STENT performed by Christopher Almonte MD at OR [facility] CYSTOSCOPY/URETERAL CATHETER Right 11/24/2021 CYSTOURETHROSCOPY WITH URETERAL CATHETER performed by Christopher Almonte MD at OR [facility] CYSTOURETERO W/LITHOTRIPSY 07/19/2006 EGD, FLEXIBLE, DIAGNOSTIC 11/09/2011 UPPER GI ENDOSCOPY DIAGNOSTIC performed by OLIVIA HERNANDEZ at [facility]COPY [facility] EGD, FLEXIBLE, DIAGNOSTIC 04/19/2013 UPPER GI ENDOSCOPY DIAGNOSTIC performed by Tj Quarles MD at [facility] EGD, FLEXIBLE, DIAGNOSTIC 12/10/2013 normal/ESOPHAGOGASTRODUODENOSCOPY (EGD), FLEXIBLE, TRANSORAL, DIAGNOSTIC performed by Olivia Hernandez MD at [facility] EGD, FLEXIBLE, DIAGNOSTIC N/A 05/12/2015 ESOPHAGOGASTRODUODENOSCOPY (EGD), FLEXIBLE, TRANSORAL, DIAGNOSTIC performed by Chris Suresh MDat OR [facility] EGD, FLEXIBLE, PLACE GASTRO TUBE N/A 04/02/2021 ESOPHAGOGASTRODUODENOSCOPY (EGD), FLEXIBLE, TRANSORAL, WITH PERCUTANEOUS GASTROSTOMY INSERTION performed by Chris Suresh MD at OR [facility] EGD, FLEXIBLE, W/BIOPSY 01/20/2010 inflammation of stomach EGD, FLEXIBLE, W/CYST DRAINAGE N/A 01/04/2021 AXIOS stent performed/due to inability to localize a site for safe percutaneous placement for PEG not completed/ESOPHAGOGASTRODUODENOSCOPY (EGD), FLEXIBLE, TRANSORAL, WITH DRAINAGE PSEUDOCYST performed by Leyda Garcia MD at OR [facility] ERCP, DIAGNOSTIC, SPECIMEN COLLECTION 07/31/2013 ENDOSCOPIC RETROGRADE CHOLANGIOPANCREATOGRAPHY (ERCP) DIAGNOSTIC performed by Darian Griffin MD at OR [facility] GASTRIC BYPASS FOR OBESITY 06/26/2000 [place]/ [place] en y INFORMATION plastic surgery pannus, arms INFORMATION 2020 Heart Cath. INSER AMY CAT,W/O PUMP;5YR/OLD N/A 12/09/2022 INSERT TUNNELED CENTRAL VENOUS CATHETER AGE 5 OR OLDER performed by Cezar Lerma DO at OR [facility] IOF CT GUIDED NEEDLE BIOPSY 06/23/2014 CT GUIDED NEEDLE ASPIRATION BIOPSY performed by Kali Velez MD at RADIOLOGY [facility] JEJUNOSTOMY, LAPAROSCOPIC N/A 04/02/2021 LAPAROSCOPIC ILEOSTOMY OR JEJUNOSTOMY performed by Chris Suresh MD at OR [facility] LAP SURGICAL, GASTROSTOMY 02/12/2014 02/12/2014 LAPAROSCOPIC GASTROSTOMY WITHOUT RECONSTRUCION GASTRIC TUBE performed by Chris Suresh MD at [facility] LAPARO RADICAL NEPHRECTOMY Right 11/17/2022 LAPAROSCOPIC RADICAL NEPHRECTOMY performed by Christopher Almonte MD at OR [facility] LAPAROSCOPE PROCEDURE, LIVER 07/31/2013 UNLISTED LAPAROSCOPIC PROCEDURE LIVER performed by Chris Suresh MD at [facility] LAPAROSCOPY DIAGNOSTIC 07/31/2013 LAPAROSCOPY DIAGNOSTIC performed by Chris Suresh MD at [facility] LAPAROSCOPY DIAGNOSTIC N/A 05/12/2015 05/12/2015 LAPAROSCOPY DIAGNOSTIC performed by Chris Suresh MD at OR [facility]/ REDUCTION OF BOWEL OBSTRUCTION 06/26/2004 Dr. Temple REMOVE GALLBLADDER 06/26/1979 FAMILY HISTORY: Family History Problem Relation Age of Onset Heart Disorder Mother elderly Hypertension Mother Kidney disease Father Brain cancer Father (possibly) SOCIAL HISTORY: Social History Socioeconomic History Marital status: Spouse [...] on file Housing Stability: Not on file ALLERGIES: Amoxicillin, Sulfa antibiotics, and Oxybutynin MEDICATIONS: Current Facility-Administered Medications Medication Dose Route Frequency Provider Last Rate Last Admin cefepime in dextrose (Maxipime) ivpb 1 g 1 g IV Piggyback Q12H NOW Adiel Toussaint MD [COMPLETED] cefepime in dextrose premix ivpb 2 g 2 g IV Piggyback Once Adiel Toussaint MD 100 mL/hr at 10/01/23 0516 2 g at 10/01/23 0516 [COMPLETED] Acetaminophen (Tylenol) tab 650 mg 650 mg Oral Once Benny Agee MD 650 mg at 10/01/23 0030 Adult TPN central IV 1,500 mL Intravenous TPN 1800 Aris Bacon DO 125 mL/hr at 09/30/23 1832 Rate Verify at 09/30/23 1832 [COMPLETED] sodium bicarbonate 8.4 % inj 50 mEq 50 mEq IV Push Once Kyler Teresa MD 50 mEq at 09/30/23 1605 sodium bicarbonate tab 1,300 mg 1,300 mg Oral BID(AM/PM) Kyler Teresa MD 1,300 mg at 09/30/23 2137 [] Adult TPN central IV 1,500 mL Intravenous TPN 1800 Aris Bacon DO Stopped at 09/30/23 0618 Cholestyramine Light (Prevalite) oral powder 4 g 4 g Oral Daily 1000 Aris Bacon DO 4 g at 09/30/23 1039 oxyCODONE (Oxy IR) tab 5 mg 5 mg Oral Q6H PRN Aris Bacon DO 5 mg at 10/01/23 0246 Vitamin E (Aquasol E) cap 400 Units 400 Units Oral Daily(AM) Aris Bacon DO 400 Units at 09/30/23 0844 Simethicone (Mylicon) chew tab 80 mg 80 mg Oral Q6H PRN Aris Bacon DO 80 mg at 09/30/23 0430 diphenoxylate-atropine 2.5-0.025 mg per tab (Lomotil) 2 Tablet 2 Tablet Oral Q6H PRN Wilner Gross MD 2 Tablet at 09/29/23 0602 traMADol (Ultram) tab 50 mg 50 mg Oral Q6H PRN Wilner Gross MD 50 mg at 09/30/23 2328 Ferrous Sulfate (Feosol) tab 325 mg 325 mg Oral Daily Wilner Fulton MD 325 mg at 09/30/23 1131 Vitamin C (Ascorbic Acid) tab 250 mg 250 mg Oral Daily Wilner Fulton MD 250 mg at 09/30/23 1131 ALPRAZolam (xaNAX) tab 0.25 mg 0.25 mg Oral HS PRN Wilner Gross MD Docusate Sodium (Colace) cap 100 mg 100 mg Oral BID PRN Wilner Gross MD 100 mg at 09/23/23 1838 promethazine (Phenergan) tab 25 mg 25 mg Oral Q4H PRN Wilner Gross MD 25 mg at 09/27/23 2144 SUMAtriptan (Imitrex) tab 50 mg 50 mg Oral Q2H PRN Wilner Gross MD 50 mg at 09/30/23 1734 fkqjstrzla-uenavdmjpdyex-gwilcoap 50-325-40 mg per tab (Fioricet) 1 Tablet 1 Tablet Oral Q6H PRN Wilner Gross MD Calcitriol (Rocaltrol) cap 0.25 mcg 0.25 mcg Oral M;W;F Carmela Rollins CRNP 0.25 mcg at 09/29/23 0758 dicyclomine (Bentyl) cap 20 mg 20 mg Oral QID PRN Carmela Rollins CRNP DULoxetine (Cymbalta) DR cap 120 mg 120 mg Oral Daily(AM) Carmela Rollins CRNP 120 mg at 09/30/23 0844 Ergocalciferol (Vitamin D2(Drisdol)) cap 50,000 Units 50,000 Units Oral Every other day Joanna Rollins CRNP 50,000 Units at 09/29/23 1037 Lidocaine (Aspercreme) 4 % patch 1 Patch 1 Patch Transdermal Daily 1800 Wilma Mayo MD 1 Patch at 09/30/23 1721 mirtazapine ODT (Remeron Soltab) tab 45 mg 45 mg Oral QHS Carmela Rollins CRNP 45 mg at 09/30/23 2137 Nicotine (Nicoderm CQ) 21 MG/24HR patch 1 Patch 1 Patch Transdermal Daily 1800 Wilma Mayo MD 1 Patch at 09/30/23 1721 OLANZapine ODT (zyPREXA zyDIS) tab 5 mg 5 mg On Tongue Daily(AM) Carmela Rollins CRNP 5 mg at 09/30/23 0845 omeprazole (PriLOSEC) cap 20 mg 20 mg Oral Daily(AM) Carmela Rollins CRNP 20 mg at 09/30/23 0844 ondansetron ODT (Zofran) tab 4 mg 4 mg On Tongue Q8H PRN Carmela Rollins GLASS CARRIER 4 mg at 09/27/23 1322 Pregabalin (Lyrica) cap 25 mg 25 mg Oral BID(AM/PM) Carmela Rollins CRNP 25 mg at 09/30/23 2137 QUEtiapine (SEROquel) tab 50 mg 50 mg Oral QHS PRN Phuc Cedillo PA-C 50 mg at 09/30/23 2328 sodium chloride 0.9 % flush central line 10 mL 10 mL IV Push Q8H Carmela Rollins GLASS CARRIER 10 mL at 10/01/23 0600 sodium chloride 0.9 % flush/inj 3 mL 3 mL IV Push PRN Carmela RollinsJARON Prior to Admission Medication: Prior to Admission medications Medication Sig Last Dose Discont. [id number] 50-325-40 MG Oral Tablet (Fioricet) TAKE ONE TABLET EVERY 6 HOURS NEEDED FOR PAIN 09/19/2023 Ondansetron 4 MG Oral Tablet Disintegrating (Zofran) PLACE 1 TABLET ON TONGUE EVERY 8 HOURS NEEDED FOR NAUSEA. 09/19/2023 Pregabalin 25 MG Oral Capsule (Lyrica) Take 1 Capsule by mouth in the morning and 1 Capsule before bedtime. 09/20/2023 Rizatriptan Benzoate 10 MG Oral Tablet (Maxalt) TAKE 1 TAB BY MOUTH DAILY NEEDED FOR MIGRAINE. Past Week Promethazine HCl 25 MG Oral Tablet (Phenergan) Take 1 Tablet by mouth every 8 hours as needed for Nausea. 09/20/2023 Diphenoxylate-Atropine 2.5-0.025 MG Oral Tablet (Lomotil) TAKE ONE TABLET BY MOUTH 4 TIMES DAILY ASNEEDED FOR DAIRRHEA Past Week Omeprazole 20 MG Oral Capsule Delayed Release (PriLOSEC) TAKE 1 CAPSULE BY MOUTH EVERY DAY IN THE MORNING 09/20/2023 OLANZapine 5 MG Oral Tablet Disintegrating (zyPREXA zyDIS) Place 1 Tablet on tongue in the morning.09/19/2023 Nystatin 588648 UNIT/GM External Cream APPLY TO AFFECTED AREA TWICE A DAY Past Week guaiFENesin-Codeine 100-10 MG/5ML Oral Syrup (Robitussin AC) Take 5 mL by mouth every 4 hours as needed for Cough. Past Month ALPRAZolam 0.25 MG Oral Tablet (xaNAX) Take 1 Tablet by mouth at bedtime as needed for Sleep. Past Month Mirtazapine 45 MG Oral Tablet (Remeron) Take 1 Tablet by mouth at bedtime. 09/19/2023 SUMAtriptan Succinate 50 MG Oral Tablet (Imitrex) MAX OF 2 TABS PER ATTACK AND NO MORE THAN 3 X WEEKLY Past Week DULoxetine HCl 60 MG Oral Capsule Delayed Release Particles (Cymbalta) Take 2 Capsules by mouth in the morning. 09/20/2023 Zinc Sulfate 220 (50 Zn) MG Oral Capsule Take 1 Capsule by mouth in the morning. 09/20/2023 Dicyclomine HCl 20 MG Oral Tablet (Bentyl) TAKE 1 TABLET BY MOUTH IN THE AM, AT NOON, IN THE PM ANDAT BEDTIME NEEDED FOR ABDOMINAL PAIN Strength: 20 mg Past Month Oyster Shell Calcium 500 MG Oral Tablet Take 2 Tabs by mouth daily. Past Week [facility] ACETAMINOPHEN EX ST 500 MG Tablet TAKE 1 CAPSULE BY MOUTH EVERY 4 HOURS 09/20/2023 CALCITRIOL 0.25 MCG PO CAPS 1 CAPSULE BY MOUTH MONDAYS/WEDNESDAYS/Fridays09/20/2023 Furosemide 20 MG Oral Tablet (Lasix) Take 1 Tablet by mouth in the morning. Patient not taking: Reported on 08/15/2023 Not Taking Myrbetriq 25 MG Oral Tablet Extended Release 24 Hour (Mirabegron ER) Take 1 Tablet by mouth in the morning. Patient not taking: Reported on 08/15/2023 Not Taking Vitamin D (Ergocalciferol) 1.25 MG (26787 UT) Oral Capsule (Drisdol) TAKE ONE CAPSULE BY MOUTH EVERY OTHER DAY Estradiol 0.1 MG/GM Vaginal Cream (Estrace) Administer 1 g into the vagina in the morning. Apply periurethrally as directed.. Patient not taking: Reported on 08/15/2023 Not Taking CYANOCOBALAMIN 1000 MCG/ML IJ SOLN one injection monthly Patient not taking: Reported on 09/20/2023 Not Taking ROS: Constitutional: no fever, no chills or +Weight Loss Eyes: no pain, blurred vision, or redness ENT: no headaches, vertigo, hearing loss, sinus, ear, or throat problems Cardiovascular: no chest pain, no palpitations Pulmonary: no cough, wheezing, or + SOB Abdominal/GI: no pain, nausea or vomiting Musculoskeletal: no pain Endocrine: no heat or cold intolerance, polyuria Hematology/oncology: no easy bruising, no obvious bleeding Skin: no rash or new or changing moles Neurology: no headache, no seizures, no syncope Psychiatry: no depression or anxiety PHYSICAL EXAMINATION: Most Recent Vital Signs: BP: 105 mmHg/61 mmHg (10/01/23257) Pulse: 104 (10/01/23402) Temp: 36 C (10/01/23257) Temp Summary: Temp Min: 36 C (96.8 F) Max: 37.1 C (98.8 F) SpO2: 98 % (10/01/23402) O2 flow rate: 4 L/MIN (10/01/23402) Supplemental O2 Delivery: Nasal Cannula (10/01/23402) Intake/Output Summary (Last 24 hours) at 10/01/2023 0557 Last data filed at 10/01/2023 0550 Gross per 24 hour Intake 1402.79 ml Output 4450 ml Net -3047.21 ml NC - 4LNC PHYSICAL EXAM: Constitutional: no acute distress HEAD: normocephalic, atraumatic; no masses, tenderness, or adenopathy ENT: oral mucosa Eyes: sclera and conjunctiva normal Neck: supple CV: First and second heart sounds, no murmur Chest: normal respiratory effort Abdomen: soft, bowel sounds normal, no masses, tenderness or organomegaly Extremities: no edema Skin: warm, dry: Neuro: alert, oriented to person, place, and time Psych: normal mood and affect LABS: Labs reviewed as indicated below: Lab Results Component Value Date/Time HDL CHOLESTEROL - [facility] 46 07/21/2009 11:29 AM HDL-OUTSIDE LAB 50 10/24/2016 12:00 AM Lab Results Component Value Date/Time CHOLESTEROL - [facility] 147 07/21/2009 11:29 AM CHOLESTEROL-HDL RATIO - [facility] 3.2 07/21/2009 11:29 AM CHOLESTEROL-OUTSIDE LAB 128 10/24/2016 12:00 AM Lab Results Component Value Date/Time GLUCOSE - [facility] 171 (H) 10/01/2023 04:39 AM GLUCOSE - [facility] 87 07/16/2020 12:54 PM GLUCOSE METER POCT - [facility] 146 (H) 10/01/2023 12:32 AM GLUCOSE METER POCT - [facility] 79 05/12/2015 08:23 AM GLUCOSE, URINE - [facility] Negative 09/24/2023 01:02 PM GLUCOSE, URINE - [facility] neg 09/26/2018 12:00 AM GLUCOSE-OUTSIDE LAB 74 11/30/2020 12:00 AM No results found for: "HEMO" No components found for: "[id number]" No results found for: "MICROALBU" Lab Results Component Value Date/Time CREATININE - [facility] 1.8 (H) 10/01/2023 04:39 AM CREATININE - [facility] 1.0 07/16/2020 12:54 PM CREATININE KARLI 119 06/17/2019 01:55 PM CREATININE KARLI - [facility] 99 07/29/2020 03:25 PM CREATININE, 24 HOUR URINE - [facility] 0.694 (L) 05/10/2019 02:25 PM CREATININE, RANDOM URINE - [facility] 47 08/23/2023 02:29 PM CREATININE-OUTSIDE LAB 0.98 11/30/2020 12:00 AM Lab Results Component Value Date/Time ALT - [facility] 30 09/27/2023 06:08 AM ALT - [facility] 42 (H) 07/16/2020 12:54 PM ALT-OUTSIDE LAB 23 12/30/2016 12:00 AM IMAGING: XR CHEST 1 VIEW Result Date: 10/01/2023 IMPRESSION: There is multifocal parenchymal consolidation which is significantly increased [facility] and could reflect multifocal pneumonia, ARDS, or edema. THIS DOCUMENT HAS BEEN ELECTRONICALLY SIGNED BY EFRAIN GILMAN MD SYSTEM BASED PLAN: Central nervous system Monitor for encephalopathy secondary to Azontemia Respiratory system Monitor for increased oxygen demand - probable secondary to Anemia Multifocal pneumonia - Continue ABX regiment Replace Bicarb- 17 Cardiovascular system Monitor for overload - Continue Lasix Monitor HR/BP for Signs of blood loss Gastrointestinal system Zofran for Nausea Nutrition Continue TPN Monitor Weight Endo Monitor electrolytes Replace electrolytes as needed FSBS Hematology Monitor CBC for blood loss Replace blood products as needed H&H Q6 Musculoskeletal PT/OT Infectious disease Cover for multifocal pneumonia Renal Trend I/O Trend kidney function Consult Nephrology Skin No Acute Issues General GLOBAL ISSUES: Analgesia: no pain Sedation: N/A Delirium/Confusion Assessment Method for ICU (CAM-ICU): CAM-ICU negative HOB Elevation: greater than 30 degress Nutrition: parenteral, at goal DVT Prophylaxis: pneumatic compression devices alone due to chemoprophylaxis contraindication Stress Ulcer Prophylaxis: not indicated Glycemic Control: controlled - protocol Central Line Necessity Reviewed: N/A Yin: reviewed and needed Disposition: May stay on current floor Patient's decisional capacity: has capacity to make decisions Communication with Patient/Family: No meeting held. Goals of Care: improve respiratory status, wean respiratory parameters, and stabilize hemodynamic status I have provided initial consultation services for this patient on the date referenced above. Time devoted to patient care services described in this note equal: 35 minutes [id number] and 60 minutestotal evaluation time. * Danielle Mathur MD - 09/29/2023 1:00 PM EDTAssociated Order(s): NEPHROLOGY CONSULT IP Reason for Consult: Acute kidney injury History of Present Illness: This is a 58-year-old female with history of malnutrition on TPN since the gastric bypass, nephrolithiasis, right nephrectomy on 01/03/2023 due to chronic pain, stones and recurrent UTI who was admitted with failure to thrive. Her weight was down to 75 lb. She has been on continuous TPN and weight is now up to 97 lb. She has CKD stage 3 with baseline creatinine of 1.2. Creatinine was at baseline on admission but the increased to 1.5 few days ago and up to 1.9 now. Patient received IV morphine on admission which was complicated by significant hypotension preceding to the bump in creatinine. She feels better now denies any shortness of breath although complaining of intermittent chest pains. She also had profuse diarrhea today. No urinary symptoms. She has mild leg swelling. She got some IVnormal saline yesterday Review of Systems General ROS: negative for - chills or fever Psychological ROS: negative for - mood swings ENT ROS: negative for - nasal congestion or nasal discharge Endocrine ROS: negative Respiratory ROS: no cough, shortness of breath, or wheezing Cardiovascular ROS: no chest pain or dyspnea on exertion Gastrointestinal ROS: no abdominal pain, change in bowel habits, or black or bloody stools Genito-Urinary ROS: no dysuria, trouble voiding, or hematuria Musculoskeletal ROS: negative for - muscle pain Neurological ROS: no TIA or stroke symptoms Dermatological ROS: negative for rash Past Medical History Past Medical History: Diagnosis Date CAD (coronary artery disease) Chronic diarrhea 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 (HCC) 02/06/2017 Depressive disorder, not elsewhere [...] use disorder Vitamin D deficiency Past Surgical History Past Surgical History: Procedure Laterality Date COLONOSCOPY W/ BIOPSY (RECTUM) 01/15/2007 normal COLONOSCOPY, DIAGNOSTIC (RECTUM) 12/10/2013 normal bx/COLONOSCOPY FLEXIBLE PROXIMAL DIAGNOSTIC performed by Olivia Hernandez MD at ENDOSCOPY [facility] COLPOSCPY CERVIX W/BX AND EC 08/24/2009 Colposcopy with biopsies COLPSCPY CERVIX W/LOOP ELECT 09/24/2009 LEEP of cervix CYSTO W/URETER STRICTURE TX 07/19/2006 CYSTO/URETERO W/LITHOTRIPSY Right 11/24/2021 CYSTOURETHROSCOPY URETEROSCOPY WITH LITHOTRIPSY AND STENT INSERTION performed by Christopher Almonte MD at OR [facility] CYSTO/URETERO W/LITHOTRIPSY Right 05/02/2022 CYSTOURETHROSCOPY URETEROSCOPY WITH LITHOTRIPSY AND STENT INSERTION performed by Christopher Almonte MD at OR [facility] CYSTO/URETERO W/LITHOTRIPSY Right 09/26/2022 CYSTOURETHROSCOPY URETEROSCOPY WITH LITHOTRIPSY AND STENT INSERTION performed by Christopher Almonte MD at OR [facility] CYSTOSCOPY/INSERTION OF STENT 07/19/2006 CYSTOSCOPY/INSERTION OF STENT Right 05/16/2022 CYSTOURETHROSCOPY WITH INSERTION URETERAL STENT performed by Christopher Almonte MD at OR [facility] CYSTOSCOPY/URETERAL CATHETER Right 11/24/2021 CYSTOURETHROSCOPY WITH URETERAL CATHETER performed by Christopher Almonte MD at OR [facility] CYSTOURETERO W/LITHOTRIPSY 07/19/2006 EGD, FLEXIBLE, DIAGNOSTIC 11/09/2011 UPPER GI ENDOSCOPY DIAGNOSTIC performed by OLIVIA HERNANDEZ at [facility] EGD, FLEXIBLE, DIAGNOSTIC 04/19/2013 UPPER GI ENDOSCOPY DIAGNOSTIC performed by Tj Quarles MD at ENDOSCOPY [facility] EGD, FLEXIBLE, DIAGNOSTIC 12/10/2013 normal/ESOPHAGOGASTRODUODENOSCOPY (EGD), FLEXIBLE, TRANSORAL, DIAGNOSTIC performed by Olivia Hernandez MD at [facility] EGD, FLEXIBLE, DIAGNOSTIC N/A 05/12/2015 ESOPHAGOGASTRODUODENOSCOPY (EGD), FLEXIBLE, TRANSORAL, DIAGNOSTIC performed by Herberth Chavez OR [facility] EGD, FLEXIBLE, PLACE GASTRO TUBE N/A 04/02/2021 ESOPHAGOGASTRODUODENOSCOPY (EGD), FLEXIBLE, TRANSORAL, WITH PERCUTANEOUS GASTROSTOMY INSERTION performed by Chris Suresh MD at [facility] EGD, FLEXIBLE, W/BIOPSY 01/20/2010 inflammation of stomach EGD, FLEXIBLE, W/CYST DRAINAGE N/A 01/04/2021 AXIOS stent performed/due to inability to localize a site for safe percutaneous placement for PEG not completed/ESOPHAGOGASTRODUODENOSCOPY (EGD), FLEXIBLE, TRANSORAL, WITH DRAINAGE PSEUDOCYST performed by Leyda Garcia MD at OR [facility] ERCP, DIAGNOSTIC, SPECIMEN COLLECTION 07/31/2013 ENDOSCOPIC RETROGRADE CHOLANGIOPANCREATOGRAPHY (ERCP) DIAGNOSTIC performed by Darian Griffin MD at OR [facility] GASTRIC BYPASS FOR OBESITY 06/26/2000 [place]/ [place] en y INFORMATION plastic surgery pannus, arms INFORMATION 2020 Heart Cath. INSER AMY CAT,W/O PUMP;5YR/OLD N/A 12/09/2022 INSERT TUNNELED CENTRAL VENOUS CATHETER AGE 3 OR OLDER performed by Cezar Lerma DO at OR [facility] IOF CT GUIDED NEEDLE BIOPSY 06/23/2014 CT GUIDED NEEDLE ASPIRATION BIOPSY performed by Kali Velez MD at RADIOLOGY [facility] JEJUNOSTOMY, LAPAROSCOPIC N/A 04/02/2021 LAPAROSCOPIC ILEOSTOMY OR JEJUNOSTOMY performed by Chris Suresh MD at OR [facility] LAP SURGICAL, GASTROSTOMY 02/12/2014 02/12/2014 LAPAROSCOPIC GASTROSTOMY WITHOUT RECONSTRUCION GASTRIC TUBE performed by Chris Suresh MD at OR [facility] LAPARO RADICAL NEPHRECTOMY Right 11/17/2022 LAPAROSCOPIC RADICAL NEPHRECTOMY performed by Christopher Almonte MD at [facility] LAPAROSCOPE PROCEDURE, LIVER 07/31/2013 UNLISTED LAPAROSCOPIC PROCEDURE LIVER performed by Chris Suresh MD at [facility] LAPAROSCOPY DIAGNOSTIC 07/31/2013 LAPAROSCOPY DIAGNOSTIC performed by Chris Suresh MD at [facility] LAPAROSCOPY DIAGNOSTIC N/A 05/12/2015 05/12/2015 LAPAROSCOPY DIAGNOSTIC performed by Chris Suresh MD at [facility]/ REDUCTION OF BOWEL OBSTRUCTION 06/26/2004 Dr. Temple REMOVE GALLBLADDER 06/26/1979 Current Medications Current Facility-Administered Medications Medication Dose Route Frequency Provider Adult TPN central IV 1,500 mL Intravenous TPN 1800 Aris Bacon, Vitamin E (Aquasol E) cap 400 Units 400 Units Oral Daily(AM) Aris Bacon DO oxyCODONE (Oxy IR) tab 5 mg 5 mg Oral Q8H PRN Aris Bacon DO Simethicone (Mylicon) chew tab 80 mg 80 mg Oral Q6H PRN Aris Bacon DO diphenoxylate-atropine 2.5-0.025 mg per tab (Lomotil) 2 Tablet 2 Tablet Oral Q6H PRN Wilner Gross MD traMADol (Ultram) tab 50 mg 50 mg Oral Q6H PRN Wilner Gross MD Ferrous Sulfate (Feosol) tab 325 mg 325 mg Oral Daily Lindaon Wilner Gross MD Vitamin C (Ascorbic Acid) tab 250 mg 250 mg Oral Daily Lindaon Wilner Gross MD ALPRAZolam (xaNAX) tab 0.25 mg 0.25 mg Oral HS PRN Wilner Gross MD Docusate Sodium (Colace) cap 100 mg 100 mg Oral BID PRN Wilner Gross MD promethazine (Phenergan) tab 25 mg 25 mg Oral Q4H PRN Wilner Gross MD SUMAtriptan (Imitrex) tab 50 mg 50 mg Oral Q2H PRN Wilner Gross MD [id number] 50-325-40 mg per tab (Fioricet) 1 Tablet 1 Tablet Oral Q6H PRN Wilner Gross MD Acetaminophen (Tylenol) tab 650 mg 650 mg Oral Q6H PRN Carmela Rollins CRNP Calcitriol (Rocaltrol) cap 0.25 mcg 0.25 mcg Oral M;W;F Carmela Rollins CRNP dicyclomine (Bentyl) cap 20 mg 20 mg Oral QID PRN Carmela Rollins CRNP DULoxetine (Cymbalta) DR cap 120 mg 120 mg Oral Daily(AM) Carmela Rollins CRNP Ergocalciferol (Vitamin D2(Drisdol)) cap 50,000 Units 50,000 Units Oral Every other day Joanna Rollins CRNP Lidocaine (Aspercreme) 4 % patch 1 Patch 1 Patch Transdermal Daily 1800 Wilma Mayo MD mirtazapine ODT (Remeron Soltab) tab 45 mg 45 mg Oral QHS Carmela Rollins CRNP Nicotine (Nicoderm CQ) 21 MG/24HR patch 1 Patch 1 Patch Transdermal Daily 1800 Wilma Mayo MD OLANZapine ODT (zyPREXA zyDIS) tab 5 mg 5 mg On Tongue Daily(AM) Carmela Rollins CRNP omeprazole (PriLOSEC) cap 20 mg 20 mg Oral Daily(AM) Carmela Rollins CRNP ondansetron ODT (Zofran) tab 4 mg 4 mg On Tongue Q8H PRN Carmela Rollins CRNP Pregabalin (Lyrica) cap 25 mg 25 mg Oral BID(AM/PM) Carmela Rollins CRNP QUEtiapine (SEROquel) tab 50 mg 50 mg Oral QHS PRN Phuc Cedillo PA-C sodium chloride 0.9 % flush central line 10 mL 10 mL IV Push Q8H Carmela Rollins CRNP sodium chloride 0.9 % flush/inj 3 mL 3 mL IV Push PRN Carmela Rollins CRNP Allergies Review of patient's allergies indicates: Allergen Reactions Amoxicillin Edema airway Sulfa Antibiotics Edema airway Oxybutynin Mouth ulcers Family History Family History Problem Relation Age of Onset Heart Disorder Mother elderly Hypertension Mother Kidney disease Father Brain cancer Father (possibly) Social Hisotry Social History Socioeconomic History Marital status: Spouse name: Not on file Number of children: 0 Years of education: Not on file Highest education level: Not on file Occupational History 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 EYES: PERRL, conjunctivae anicteric. ENT: Mucous membranes moist, oropharynx clear. NECK: Supple, no JVD. LYMPH: No cervical or supraclavicular lymphadenopathy. LUNGS: Clear to auscultation bilaterally, no respiratory distress. CARDIAC: Regular rate and rhythm, normal S1/S2, no murmurs, rubs, or gallops. ABDOMEN: Soft, non-tender, non-distended, bowel sounds present. EXT/MSK: No clubbing, cyanosis, or edema. SKIN: No rash, no jaundice. NEURO: Oriented x3, no tremor, no asterixis. Intake/Output Summary (Last 24 hours) at 09/29/2023 1301 Last data filed at 09/28/2023 2327 Gross per 24 hour Intake 1502.7 ml Output -- Net 1502.7 ml LABS/STUDIES: Lab Results Component Value Date/Time BUN - [facility] 91 (H) 09/29/2023 04:18 AM BUN - [facility] 83 (H) 09/28/2023 05:13 AM BUN - [facility] 83 (H) 09/27/2023 06:08 AM BUN - [facility] 82 (H) 09/26/2023 06:44 AM BUN - [facility] 66 (H) 09/25/2023 06:37 AM BUN - [facility] 15 07/16/2020 12:54 PM BUN - [facility] 26 (H) 06/23/2020 09:49 AM BUN - [facility] 28 (H) 01/17/2020 01:14 PM BUN - [facility] 21 (H) 09/05/2019 10:26 AM BUN - [facility] 17 05/10/2019 02:25 PM Lab Results Component Value Date/Time CREATININE - [facility] 1.9 (H) 09/29/2023 04:18 AM CREATININE - [facility] 1.6 (H) 09/28/2023 05:13 AM CREATININE - [facility] 1.6 (H) 09/27/2023 06:08 AM CREATININE - [facility] 1.5 (H) 09/26/2023 06:44 AM CREATININE - [facility] 1.2 (H) 09/25/2023 06:37 AM CREATININE - [facility] 1.0 07/16/2020 12:54 PM CREATININE - [facility] 1.1 (H) 06/23/2020 09:49 AM CREATININE - [facility] 1.3 (H) 01/17/2020 01:14 PM CREATININE - [facility] 1.0 09/05/2019 10:26 AM CREATININE - [facility] 0.7 05/10/2019 02:25 PM CREATININE KARLI 119 06/17/2019 01:55 PM [...] URINE - [facility] 62 09/20/2021 04:13 PM CREATININE, RANDOM URINE - [facility] 100 07/29/2020 03:24 PM CREATININE-OUTSIDE LAB 0.98 11/30/2020 12:00 AM CREATININE-OUTSIDE LAB 0.60 10/05/2020 12:00 AM CREATININE-OUTSIDE LAB 0.70 10/02/2020 12:00 AM CREATININE-OUTSIDE LAB 0.61 07/03/2019 12:00 AM CREATININE-OUTSIDE LAB 0.66 06/28/2019 12:00 AM No components found for: "E GLOM FILT RATE" Lab Results Component Value Date/Time POTASSIUM - [facility] 4.8 09/29/2023 04:18 AM POTASSIUM - [facility] 4.7 09/28/2023 05:13 AM POTASSIUM - [facility] 4.5 09/27/2023 06:08 AM POTASSIUM - [facility] 4.1 07/16/2020 12:54 PM POTASSIUM - [facility] 3.3 (L) 06/23/2020 09:49 AM POTASSIUM - [facility] 4.1 01/17/2020 01:14 PM POTASSIUM, 24 HOUR URINE - [facility] 48.4 05/22/2013 11:39 AM POTASSIUM, RANDOM URINE - [facility] 37.3 05/22/2013 11:39 AM POTASSIUM-OUTSIDE LAB 3.6 11/30/2020 12:00 AM POTASSIUM-OUTSIDE LAB 3.5 10/05/2020 12:00 AM POTASSIUM-OUTSIDE LAB 3.7 10/02/2020 12:00 AM Lab Results Component Value Date/Time HGB 9.3 (L) 09/21/2023 11:28 AM HGB 9.8 (L) 06/12/2023 11:36 AM HGB 11.1 (L) 03/13/2023 11:44 AM HGB 10.9 (L) 01/02/2023 03:32 PM HGB 8.8 (L) 12/21/2022 12:01 PM HGB 9.8 (A) 11/30/2020 12:00 AM HGB 8.4 (A) 10/05/2020 12:00 AM HGB 7.6 (A) 10/01/2020 12:00 AM HGB 11.8 (L) 07/16/2020 12:54 PM HGB 11.2 (L) 06/23/2020 09:49 AM HGB 12.3 01/17/2020 01:14 PM HGB 12.4 01/17/2020 01:06 PM HGB 11.3 (A) 07/03/2019 12:00 AM HGB 11.8 (A) 06/28/2019 12:00 AM HGB 11.6 (L) 04/19/2019 11:18 AM No results found for: "MICROALB" No components found for: "PROTCREATRAT" Lab Results Component Value Date/Time PTH - [facility] 323 (H) 06/04/2022 11:26 AM PTH - [facility] 157 (H) 05/10/2019 02:25 PM PTH-OUTSIDE LAB 99 (A) 10/24/2016 12:00 AM Lab Results Component Value Date/Time PHOSPHORUS - [facility] 3.9 09/29/2023 04:18 AM PHOSPHORUS - [facility] 3.9 05/10/2019 02:25 PM PHOSPHORUS, 24 HOUR URINE - [facility] 0.402 05/22/2013 11:39 AM PHOSPHORUS-OUTSIDE LAB 4.3 11/30/2020 12:00 AM PHOSPHORUS-OUTSIDE LAB 4.3 11/28/2020 09:46 AM ASSESSMENT/PLAN: This is a 58-year-old female with history of malnutrition on TPN since the gastric bypass, nephrolithiasis, right nephrectomy on 01/03/2023 due to chronic pain, stones and recurrent UTI who was admitted with failure to thrive. Her weight was down to 75 lb. She has been on continuous TPN and weight is now up to 97 lb. She is being seen for worsening renal function Plan: Acute kidney injury: Etiology is likely ischemic ATN due to persistent hypotension on admission. Hypotension was likely in setting of morphine use. Her blood pressure runs low at baseline but significant drop in blood pressure noted on 09/25/2023. Patient is now off IV morphine. Blood pressure is the better. She is making urine. Electrolytes are stable. No indication for dialysis. Renal function expected to improve. Patient has edema. No need for IV fluids but low threshold to give fluids if systolic is less than 100. Metabolic acidosis. Patient has metabolic acidosis in setting of acute kidney injury. Patient needssodium bicarbonate supplements but unclear if she will tolerate them in setting of gastric bypass. Will give baking powder half a tsp full mixed in water daily. Danielle Mathur MD This note was generated with the help of voice recognition software. Please excuse for errors. * Simran Chase MD - 09/22/2023 12:47 PM EDTAssociated Order(s): PSYCHIATRY CONSULT IP INITIAL PSYCHIATRY CONSULT NOTE Patient location: HOSPITAL. I was not in a hospital or clinic location. After connecting through [place] [facility], patient was identified by name and date of and/or wristband checked. Patient (or authorized legal human resources hr representative) was then informed that this was a Telemedicine visit and was being conducted confidentially over secure lines. My office door was closed. No one else was in the room with me.. Patient acknowledged consent and understanding of privacy and security of the Telemedicine visit and gave permission to have a telemedicine presenter stay in the room in order to assist with the history and to conduct the exam as needed. I informed the patient that I have reviewed their record in [facility] and presented the opportunity for them to ask any questions regarding the visit today. The patient agreed to participate. Date of Consult: 09/22/2023 Subjective HISTORY OF PRESENT ILLNESS (HPI): The reason for psychiatric consultation is suicidal ideation. Patient stated, "I don't know why you're seeing me. Was it something I said, because I'm allowed to be frustrated and say 'well who wouldwant to live this life.'" Of note, when this manual writer spoke with patient's primary team, the concern was for passive wishes and not active suicidal ideation. 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 Although she endorsed a depressed mood at times, this is directly correlated with her physical health. Additionally, she adamantly denied SI/plan/intent or passive wishes. Denied HI, AVH, delusions and access to weapons. No overt psychotic or manic symptoms noted. Future oriented and self-advocating. Asked this manual writer if she could seeDrTosha Serna (current outpatient psychiatrist) when she's discharged. Pt has an appointment on 10/12 but requested another one before then. Pt's also looking forward to having her friend whom she describes as a "pseudo- daughter" come visit her today. Denied all other depressive and manic symptoms. PSYCHIATRIC REVIEW OF SYSTEMS: and no symptoms present of depression, anxiety, guille, and psychosis PAST PSYCHIATRIC HISTORY One prior suicide attempt a few years ago after she got a divorce, but pt brought herself to the ERafter an overdose History of trauma, abuse, exploitation or trafficking: none I have reviewed the patient's allergies, past history, and medications. MENTAL STATUS EXAM (MSE) Appearance: casually dressed and thin Attitude: cooperative Eye Contact: good Behavior: appropriate Impulse Control: fair Speech: normal pitch, normal rate, and normal volume Mood: euthymic Affect: appropriate Thought Process: within normal limits Thought Content:normal Suicidality and Homicidality: No Ideation Insight: fair Judgment: fair Memory: fair Attention/Concentration: fair Orientation: alert and oriented to person, place, time and situation Language: clear, coherent, and fluent Fund of Knowledge: fair Objective PHYSICAL EXAM & ADDITIONAL FINDINGS Please see most recent physical exam by attending physician. Reviewed ED vital signs and pertinent labs, imaging and other studies through Results Review Pain Screening: Is patient experiencing any pain? No Recommendations for management: None Nutritional Screening: No concerns RISK ASSESSMENT- Risk assessment is a dynamic process; it is possible that this patient's condition, and risk level,may change. This should be re-evaluated and managed over time as appropriate. Please call or re-consult us if additional assistance is needed in terms of risk assessment and management. If your team decides to discharge this patient, please advise the patient how to best access emergency psychiatric services, or to call 911, if their condition worsens or they feel unsafe in any way. Based on my current evaluation and risk assessment, patient is determined to be at: Low Risk of harm to self or others Risk Factors: previous suicide attempts Protective Factors: access to appropriate services, willing to participate in less restrictive means of help rather than hospitalization (e.g., outpatient therapy), history of being able to cope withstressors without engaging in self- harm, identifies appropriate solutions to current problems, identifies reasons for living, has future plans, hopeful attitude and or beliefs, and verbally contractsfor safety GENERAL FORMULATION- Based on my current evaluation and assessment of the patient, Chandrika Hogue is a 58 year old years old who presents with complaints of suicidal ideation. The patient's presentation and diagnosis is consistent with adjustment disorder, unspecified with a hx of bipolar disorder. Assessment & Plan DIAGNOSES: Primary Psychiatric Diagnoses: Adjustment disorder, unspecified with a hx of bipolar disorder PLAN/RECOMMENDATIONS/INTERVENTIONS: Inpatient psych admission is not recommended Medication recommendations: Please continue all medications as prescribed Non-Medication recommendations: Reached out to Dr. Serna: Appointment for telepsychiatry is now on10/02 at 6:30pm. I reviewed and updated the [place] Suicide Screen and Suicide Safety Plan as clinically indicated Follow-Up Telepsychiatry C/L services: Will sign off for now. Please re-consult our service as necessary. Total time spent in encounter: 45 minutes total, including record review, clinical interview, behavior observations, discussion of impressions and recommendations, completion, scoring, and interpretation of questionnaires, consultation/communication with relevant parties, and clinical documentation Impressions and recommendations were shared with the appropriate persons, including the patient to the extent that the patient is able to consent to treatment as well as understand and participate intreatment decision-making. Consultation recommendations were discussed with requesting physician/service. Thank you for involving us in the care of this patient. Please contact us with questions/concerns. Simran Chase MD * Inge Corbett RN - 09/21/2023 2:30 PM EDTAssociated Order(s): CARE MANAGEMENT CONSULT IP See ancillary assessment note * Sara Montenegro, PT - 09/21/2023 10:05 AM EDTAssociated Order(s): ADULT PHYSICAL THERAPY CONSULT IP GENERAL EVALUATION - Physical Therapy [address] [address] Name: Chandrika Hogue Location: [address] Date: 09/21/2023 Time: 1004 Chandrika Hogue is a/an 58 year old female. Patient Status: Inpatient Insurance: Payor: [facility] Plan: [facility] [employer]ERRED [employer] MP-DD Product Type: *No Product type* Patient Seen: at bedside. Patient Identified By: Name, ID Band and Date Diagnosis: FTT (09/21/231004) Status of treatment: OOB evaluation completed (09/21/231004) Orders: PT evaluation and treatment (09/21/231004) Weight Bearing Status: Weight bearing as tolerated (09/21/231004) Precautions: Falls;Safety;Other - describe (TPN) (09/21/231004) Total Treatment Time--free text: 39 (09/21/231004) As per H&P: " 58 year old female who presented to [facility] 09/20/2023 for planned, direct admission accepted by Dr. Alen Larsen on 09/19/2023 for failure to thrive. According to available records, patient, and correspondence from Dr. Larsen regarding admission, patient has been using TPN at home three days per week for 12 hours each session but continues to lose weight. Patient reports that she had been 90 lbs, then dropped to 80 lbs, and currently 73 lbs. She noted that she started TPN at home around 80 lbs. She was doing it for 12 hours five times per week. In continued follow-up with Dr. Wilkerson and nutritional support team, she noted that she had "no life" because she comes home from work then has to get hooked up to TPN for 12 hours and cannot go out anywhere. Because of this she notes that she decreased the TPN to just three times per week on MWF. There is some concern that she has not been compliant with this regimen. She states that she does take PO as she is able/hungry but continuesto lose weight, has increasing weakness, LE edema at times, and has also been falling at home with t he increased weakness. As per Dr. Wilkerson, she is to be admitted for daily TPN which is resumption ofthis modality and concern for refeeding syndrome with restarting therapy. Patient is in agreement for plan with d/c plan to resume TPN 12 hours three times per week. 1410 Spoke with pharmacist, Guillermo Park. Labs ordered to start tomorrow, today's TPN ordered to start this evening, pharmacy detailed note in chart with plan to do 24 hours TPN today, 16 tomorrow, Monday then resume her MWF 12 hour schedule and d/c to home." Chest X ray: IMPRESSION: 1. No acute cardiopulmonary disease. 2. Possible mild bronchitis. 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 (HCC) 02/06/2017 Depressive disorder, not elsewhere [...] disorder Vitamin D deficiency Past Surgical History: Past Surgical History: Procedure Laterality Date COLONOSCOPY W/ BIOPSY (RECTUM) 01/15/2007 normal COLONOSCOPY, DIAGNOSTIC (RECTUM) 12/10/2013 normal bx/COLONOSCOPY FLEXIBLE PROXIMAL DIAGNOSTIC performed by Olivia Hernandez MD at [facility] COLPOSCPY CERVIX W/BX AND EC 08/24/2009 Colposcopy with biopsies COLPSCPY CERVIX W/LOOP ELECT 09/24/2009 LEEP of cervix CYSTO W/URETER STRICTURE TX 07/19/2006 CYSTO/URETERO W/LITHOTRIPSY Right 11/24/2021 CYSTOURETHROSCOPY URETEROSCOPY WITH LITHOTRIPSY AND STENT INSERTION performed by Christopher Almonte MD at [facility] CYSTO/URETERO W/LITHOTRIPSY Right 05/02/2022 CYSTOURETHROSCOPY URETEROSCOPY WITH LITHOTRIPSY AND STENT INSERTION performed by Christopher Almonte MD at [facility] CYSTO/URETERO W/LITHOTRIPSY Right 09/26/2022 CYSTOURETHROSCOPY URETEROSCOPY WITH LITHOTRIPSY AND STENT INSERTION performed by Christopher Almonte MD at [facility] CYSTOSCOPY/INSERTION OF STENT 07/19/2006 CYSTOSCOPY/INSERTION OF STENT Right 05/16/2022 CYSTOURETHROSCOPY WITH INSERTION URETERAL STENT performed by Christopher Almonte MD at [facility] CYSTOSCOPY/URETERAL CATHETER Right 11/24/2021 CYSTOURETHROSCOPY WITH URETERAL CATHETER performed by Christopher Almonte MD at OR [facility] CYSTOURETERO W/LITHOTRIPSY 07/19/2006 EGD, FLEXIBLE, DIAGNOSTIC 11/09/2011 UPPER GI ENDOSCOPY DIAGNOSTIC performed by OLIVIA HERNANDEZ at [facility] EGD, FLEXIBLE, DIAGNOSTIC 04/19/2013 UPPER GI ENDOSCOPY DIAGNOSTIC performed by Tj Quarles MD at [facility] EGD, FLEXIBLE, DIAGNOSTIC 12/10/2013 normal/ESOPHAGOGASTRODUODENOSCOPY (EGD), FLEXIBLE, TRANSORAL, DIAGNOSTIC performed by Olivia Hernandez MD at [facility] EGD, FLEXIBLE, DIAGNOSTIC N/A 05/12/2015 ESOPHAGOGASTRODUODENOSCOPY (EGD), FLEXIBLE, TRANSORAL, DIAGNOSTIC performed by Herberth Chavez OR [facility] EGD, FLEXIBLE, PLACE GASTRO TUBE N/A 04/02/2021 ESOPHAGOGASTRODUODENOSCOPY (EGD), FLEXIBLE, TRANSORAL, WITH PERCUTANEOUS GASTROSTOMY INSERTION performed by Chris Suresh MD at [facility] EGD, FLEXIBLE, W/BIOPSY 01/20/2010 inflammation of stomach EGD, FLEXIBLE, W/CYST DRAINAGE N/A 01/04/2021 AXIOS stent performed/due to inability to localize a site for safe percutaneous placement for PEG not completed/ESOPHAGOGASTRODUODENOSCOPY (EGD), FLEXIBLE, TRANSORAL, WITH DRAINAGE PSEUDOCYST performed by Leyda Garcia MD at OR [facility] ERCP, DIAGNOSTIC, SPECIMEN COLLECTION 07/31/2013 ENDOSCOPIC RETROGRADE CHOLANGIOPANCREATOGRAPHY (ERCP) DIAGNOSTIC performed by Darian Griffin MD at [facility] GASTRIC BYPASS FOR OBESITY 06/26/2000 [place]/ [place] en y INFORMATION plastic surgery [place], arms INFORMATION 2020 Heart Cath. INSER AMY CAT,W/O PUMP;5YR/OLD N/A 12/09/2022 INSERT TUNNELED CENTRAL VENOUS CATHETER AGE 3 OR OLDER performed by Cezar Lerma DO at OR [facility] IOF CT GUIDED NEEDLE BIOPSY 06/23/2014 CT GUIDED NEEDLE ASPIRATION BIOPSY performed by Kali Velez MD at [facility] JEJUNOSTOMY, LAPAROSCOPIC N/A 04/02/2021 LAPAROSCOPIC ILEOSTOMY OR JEJUNOSTOMY performed by Chris Suresh MD at OR [facility] LAP SURGICAL, GASTROSTOMY 02/12/2014 02/12/2014 LAPAROSCOPIC GASTROSTOMY WITHOUT RECONSTRUCION GASTRIC TUBE performed by Chris Suresh MD at [facility] LAPARO RADICAL NEPHRECTOMY Right 11/17/2022 LAPAROSCOPIC RADICAL NEPHRECTOMY performed by Christopher Almonte MD at [facility] LAPAROSCOPE PROCEDURE, LIVER 07/31/2013 UNLISTED LAPAROSCOPIC PROCEDURE LIVER performed by Chris Suresh MD at [facility] LAPAROSCOPY DIAGNOSTIC 07/31/2013 LAPAROSCOPY DIAGNOSTIC performed by Chris Suresh MD at [facility] LAPAROSCOPY DIAGNOSTIC N/A 05/12/2015 05/12/2015 LAPAROSCOPY DIAGNOSTIC performed by Chris Suresh MD at OR [facility]/ REDUCTION OF BOWEL OBSTRUCTION 06/26/2004 Dr. Temple REMOVE GALLBLADDER 06/26/1979 Subjective: "Today is a good day." Social History/Disposition Lives with: Alone (09/21/23 1005) Assistance available: No (09/21/23 1005) Dwelling type: Apartment (09/21/23 1005) Entry steps: None (via front door, 3 [address] via back door) (09/21/23 1005) Inside steps: Elevator (09/21/23 1005) Bedroom location: 1st floor (09/21/23 1005) Bath location: 1st floor full bath (09/21/23 1005) Prior Level of Function Reported by: Patient;Chart review (09/21/23 100) Ambulation: Ambulatory with device (09/21/23 1005) Ambulatory Device: Cane (09/21/23 1005) Devices at home: Straight cane (09/21/23 1005) Observations Consciousness: Alert (09/21/23 1005) Orientation: Oriented times 4 (03/28/24 1005) Psychosocial: Patient can communicate basic needs;Patient can converse in a social setting (09/21/231004) Other Findings: Yes (09/21/231004) Findings: Light touch sensation;Edema;Tone (09/21/231004) Light Touch Sensation Results: Impaired;LLE;RLE (chronic numbness B feet) (09/21/231004) Edema Results: Absent;LLE;RLE (09/21/231004) Tone Results: Intact;LLE;RLE (09/21/231004) Sitting Posture: Forward head;Rounded shoulders (09/21/231004) Standing Posture: Forward head;Rounded shoulders (09/21/231004) Pain: Patient has complaints of pain. Pain located tailbone: 02/02 Staff Notified Range of Motion Range of Motion: WFL, except (09/21/231004) Strength Assessment Strength Assessment: Deficits noted (09/21/231004) WNL, except: LLE;RLE (09/21/231004) LLE: Hip;3-/5;Knee;Ankle;3+/5 (09/21/231004) RLE: Hip;3-/5;Knee;Ankle;3+/5 (09/21/231004) P.T. Bed Mobility Roll (Right): Independent (09/21/231004) Supine-Sit: Independent (09/21/231004) Sit-Supine: Independent (09/21/231004) Transfers Sit-Stand: Contact Guard (09/21/231004) Stand-Sit: Contact Guard (09/21/231004) W/C-Bed/Mat: Contact Guard (09/21/231004) Ambulation: Distance ambulated (feet): 115 Assistive Device: Straight cane Assist: Minimal Assistance Balance Sit (Static): Good (09/21/231004) Sit (Dynamic): Good (09/21/231004) Stand (Static): Fair (09/21/231004) Stand (Dynamic): (Fair- at SPC) (09/21/231004) Patient and or Family Goal(s): to get well Patient Education Review of Precautions: Safety;Fall (use of call garcia for assistance, pt verbalizes understanding) (09/21/231004) Safety Awareness: Patient verbalizes insight of current deficits;Patient demonstrates carryover of insight during functional tasks;Patient can communicate basic needs (09/21/231004) Preferred learning method: Combination (09/21/231004) Barriers to learning: Psychological factors;Medical Status (09/21/231004) Method of Education: Verbalized to patient;Patient demonstrated task (09/21/231004) Topic of Education: Safety with mobility, Goals/plan of care, Use of assistive device, Fall prevention, and discharge planning. Method of Education: Verbal discussion and explanation provided to pt regarding goals for PT consult, safety and fall prevention strategies, discharge planning: verbalized understanding and or agreement of this information Treatment Provided: Therapeutic Activities 16 minutes: transfer training Gait Training 12 minutes: gait training with rolling walker Evaluation Moderate Complexity 11 minutes - 05145: Patient was cooperative, pleasant, alert, and willing to participate during treatment session. Moderate complexity evaluation performed and 1-2 personal factors or comorbidities were identified that will impact plan of care, including lives alone at home and this admission for failure to thrive . Patient presents with limitations in range of motion, strength, transfers, gait, balance, endurance, and safety, which will impact plan of care. Theselimitations will be addressed by the goals set for this patient. Alarm Status Patient positioned in: Bed (09/21/231004) With: Call garcia in reach (09/21/231004) Treatment Status: Treatment at bedside (09/21/231004) Goals(within 8 sessions): Demonstrate Transfers with: Sit <> stand: independent (pt does 100%) Bed <> chair: independent (pt does 100%) Demonstrate Ambulation: level of assistance on level surface: modified independent (with device or slow) with SPC or rollator >150 ft Increase Safety: with use of AD and assistance for fall prevention strategies Assessment: PT consult completed with pt demonstrating independence with supine to sit EOB and CGA for sit to stand. Standing tolerance x 3 min and gt with R SPC 115 ft with min A for unsteady gt andNBOS. Noted fatigue at end of gt bout. Standing balance is fair-/fair at RW. B LE strength is grossly: 3- to 3+/5 t/o. Would consider post-acute care services which may include home health, prison, outpatient therapy, or inpatient rehab. The level of care will be determined in collaboration with the patient, family/caregiver, and care team members. AMPAC of 19 Deficits requiring P.T. treatment needs: Safety;Mobility;Balance;Weakness;Endurance;Lower extremitystrength (09/21/23 1005) Equipment Needs: Treatment Plan: Transfer training, Gait training, Strengthening exercises: for B LEs, Standing Balance activities, and Educate on safety with use of AD and assistance for fall prevention strategies. Anticipated Frequency (on eval): 3 to 5 times per week (09/21/23 1005) AM PAC Score with Stairs: 19 * Kiara Sanchez, CATRACHO - 09/21/2023 9:47 AM EDTAssociated Order(s): NUTRITION SERVICES (DIETITIAN) CONSULT IP Images from the original note were not included. CLINICAL NUTRITION CONSULT/PROGRESS NOTE [address] [address] Name: Chandrika Hogue Location: [facility] [id number]-[id number]/W Date: 09/21/2023 Time: 9:47 AM How patient was identified (select 2): date and Name Discussed in interdisciplinary rounds: No Patricia Hogue is a 58 year old female being seen for consult by provider and parenteral nutrition Primary Diagnosis: Failure to thrive in adult Other pertinent information: Patient with Hx of malabsorption, gastric bypass, severe malnutrition,receiving chronic TPN Patient started by telling me she had gastric bypass about 25 years ago, and she was doing well with her weight for about 20 years, keeping around 100-120 lbs, then she got a divorce and noticed she was losing weight and was unable to gain it back. Patient reports she sees Dr. Wilkerson (from [facility]) and was started on TPN back in November of 2022. She reports her weight has recently been in the 80s and 90s but in the past month she has lost weight and now weighs in the 70s. Patient tells me she was getting her TPN for 3 days a week (MWF) but she was continuing to lose weight. Patient reports she is able to eat PO, is mostly a snacker, but sometimes can eat about 1/2 a meal, however she often has nausea and vomiting after eating; she reports having been followed by GI, had a G-tube at one point, but that did not work either. She reports she was in contact with Dr. Wilkerson last week, and it was agreed upon that she would be admitted to the hospital for 7-10 days to have TPN and goal is to gain weight. Sabino Park, IV Pharmacist aware of recommendations for TPN from the [facility] team. Will monitor lytes for refeeding syndrome. Patient allowed me to perform a nutrition focused physical exam today and presents with severe fat and muscle loss, continuing to meet criteria for severe malnutrition. Patient is currently on a regular diet, reports she does not like nor can tolerate boost shakes, but willing to try boost breeze -will order. Patient discussed with attending, RN, weigh and charge worker and pharmacist. NUTRITION ASSESSMENT: Past medical/surgical history and medications reviewed. Food/Nutrition-Related History Nutrition Support: TPN Medication Recent History (Show up to 1 orders; newest on the left.) Start date and time 09/20/2023 1800 Adult TPN central IV [[id number]] Order Status Active Last Admin Rate Verify at 09/20/2023 1856 by Jai Zapien LPN Dose 1,200 mL Frequency TPN 1800 Macro Ingredients plenamine 60 g D70W 100 g Electrolytes Sodium Chloride 40 mEq potassium phosphate 22 mmol potassium ACEtate 40 mEq magnesium sulfate 8 mEq Additives multivitamin ADULT 10 mL trace minerals (TRALEMENT) concentrated 1 mL zinc sulfate 7 mg QS Base sterile water for injection 374.81 mL Lipids Fat emulsion 20% 45 g Energy Contribution Proteins 240 kcal Dextrose 340.01 kcal Lipids 450 kcal Total 1,030.01 kcal Electrolyte Ion Calculated Amount Sodium 40 mEq Potassium 72.27 mEq Calcium -- Magnesium 8 mEq Aluminum -- Phosphate 22 mmol Chloride 40 mEq Acetate 40 mEq Chloride: Acetate Ratio 1 Other Total Amino Acid 60 g Total Amino Acid/kg 1.79 g/kg Glucose Infusion Rate 2.07 mg/kg/min Osmolarity 1,142.24 Volume 1,200 mL Rate 50 mL/hr Dosing Weight 33.6 kg Infusion Site Central Total Multi-vitamins 10 mL Total Trace Elements 1 mL Route Intravenous Admin Instructions Infuse using a 1.2 micron in-line filter Diet: Regular Previously followed diet: Regular Food Allergies/Intolerances: NKFA Adult Energy Intake: Less than 75% of estimated energy requirement for greater than 1 month (moderate/severe, chronic illness). Oral Nutrition Supplement (ONS): None Pertinent medications/vitamins/minerals/supplements: Vit D2, remeron Pertinent Biochemical Data: No new labs to assess at this time Nutrition-Focused Physical Findings: Appearance: Cachectic and Thin Respiratory support: Supplemental O2 Delivery: Room Air, None Nasal/Oral: No issues identified Digestive: Appetite poor, Nausea, and Vomiting Last Bowel Movement: 09/20/23 (per patient report) (09/20/232019) Cognition: Awake, alert and Oriented Skin: Intact Enteral access: None Nutrition Focused Physical Exam: NFPE completed on 09/21/2023 Subcutaneous Fat Loss: Orbital fat pads: Severe Buccal fat: Severe Tricep: Severe Rib: Severe Muscle Loss: Temples: Severe Clavicles: Severe Shoulders: Severe Scapula: Severe Interosseous: Severe Quadriceps: Severe Calves: Severe Anthropometrics Measurements Height: 149.9 cm (4' 11") (09/20/23 1249) Admission weight: 33.6 kg Weight: 33.4 kg (73 lb 11.2 oz) (09/21/23 0649) BMI: 14.96 (09/20/23 1249) Usual Body Weight: 36.3 kg [place] weight: 41.5 kg [place] Weight Based on BMI: 18.5 Interpretation of Weight Change Prior to Admission: Greater than 5% weight loss in 1 month (Severe) Nutrition Prescription: Energy needs: 30-35 Kcal/kg Kcal/day: 4699-1225 Based on [place] weight Protein needs: 1.25-1.5 gm/kg Protein: 52-62 Based on [place] weight Fluid needs: 30 ml/kg Fluid: 1245 ml/day Based on [place] weight Malnutrition: Malnutrition Present: Yes (09/21/23 101) Adult Malnutrition Classification: Severe (09/21/231018) Malnutrition Characteristics: Fat loss;Muscle loss;Inadequate energy intake;Weight loss (09/21/23 1019) Malnutrition Care Plan: Patient meets ASPEN/AND criteria for severe malnutrition. NUTRITION DIAGNOSIS: Malnutrition severe related to chronic illness as evidenced by patient consuming less than 75% of estimated energy requirements x 1 month, greater than 5% weight loss x 1 month, severe fat loss, and severe muscle loss. 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 Goals: Labs, lytes, WNL within 3 days. Patient will be at goal TPN rate within 3-4 days. NUTRITION INTERVENTION/PLAN: Orders: Oral nutrition supplement added Boost Breeze (1 cup provides 250 calories, 9 grams protein,54 grams carbohydrate) daily Continue to monitor nutrition support Clinical Nutrition Recommendations: Diet: Continue current nutrition plan Parenteral Nutrition: TPN - Per Nutrition & Weight Management: Goals: 1370 Kcal, 60g amino acids, 200g dextrose, 45g lipids (Daily) Patient at high risk for refeeding syndrome due to degree of malnutrition. Monitor closely potassium, magnesium, and phosphorus until stable. NUTRITION MONITORING AND EVALUATION: Nursing documentation flowsheets for percent meal intake Tolerance of supplement per patient/nursing report Parenteral nutrition intake for formula, rate, progress toward goal regimen Renal and electrolyte profile, protein profile for possible refeeding syndrome Weight for trends Plan follow-up: Will follow and adjust nutrition plan of care as medical condition requires. Please contact for change(s) in patient condition requiring earlier intervention. Kiara Sanchez, , RDN, LDN Clinical Dietitian [facility] Available via [place] Text [phone] * Cristina García OT - 09/21/2023 8:26 AM EDTAssociated Order(s): ADULT OCCUPATIONAL THERAPY CONSULT IP GENERAL EVALUATION - Occupational Therapy [facility]-[address] [address] Name: Chandrika Hogue Location: [facility] [id number] Date: 09/21/2023 Time: 8:26 AM Chandrika Hogue is a 58 year old female. As per H&P, " 58 year old female who presented to [facility] 09/20/2023 for planned, direct admission accepted by Dr. Alen Larsen on 09/19/2023 for failure to thrive. According to available records, patient, and correspondence from Dr. Larsen regarding admission, patient has been using TPN at home three days per week for 12 hours each session but continues to lose weight. Patient reports that she had been 90 lbs, then dropped to 80 lbs, and currently 73 lbs. She noted that she started TPN at home around 80 lbs. She was doing it for 12 hours five times per week. In continued follow-up with Dr. Wilkerson and nutritional support team, she noted that she had "no life" because she comes home from work then has to get hooked up to TPN for 12 hours and cannot go out anywhere. Because of this she notes that she decreased the TPN to just three times per week on MWF. There is some concern that she has not been compliant with this regimen. She states that she does take PO as she is able/hungry but continues to lose weight, has increasing weakness, LE edema at times, and has also been falling at home with the increased weakness. As per Dr. Wilkerson, she is to be admitted for daily TPN which is resumption of this modality and concern for refeeding syndrome with restarting therapy. Patient is in agreement for plan with d/c plan to resume TPN 12 hours three times per week. 1410 Spoke with pharmacist, Guillermo Park. Labs ordered to start tomorrow, today's TPN ordered to start this evening, pharmacy detailed note in chart with plan to do 24 hours TPN today, 16 tomorrow, Monday then resume her MWF 12 hour schedule and d/c to home. " Patient Status: Inpatient Insurance: Payor: [facility] Plan: [facility] PREFERRED ENHANCED MP-DD Product Type: *No Product type* Patient Seen: at bedside, nursing cleared patient for therapy Patient Identified By: Name, ID Band and Date Diagnosis: decreased ADL and functional skills, decreased activity tolerance (09/21/23825) Status of treatment: OOB evaluation completed (09/21/23825) Orders: OT evaluation and treatment (09/21/23825) Weight Bearing Status: Weight bearing as tolerated (09/21/23825) Precautions: Falls;Safety;Central line (09/21/23825) Total Treatment Time: 30 (09/21/23825) 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 (HCC) 02/06/2017 Depressive disorder, not elsewhere [...] disorder Vitamin D deficiency Past Surgical History: Past Surgical History: Procedure Laterality Date COLONOSCOPY W/ BIOPSY (RECTUM) 01/15/2007 normal COLONOSCOPY, DIAGNOSTIC (RECTUM) 12/10/2013 normal bx/COLONOSCOPY FLEXIBLE PROXIMAL DIAGNOSTIC performed by Olivia Hernandez MD at [facility] COLPOSCPY CERVIX W/BX AND EC 08/24/2009 Colposcopy with biopsies COLPSCPY CERVIX W/LOOP ELECT 09/24/2009 LEEP of cervix CYSTO W/URETER STRICTURE TX 07/19/2006 CYSTO/URETERO W/LITHOTRIPSY Right 11/24/2021 CYSTOURETHROSCOPY URETEROSCOPY WITH LITHOTRIPSY AND STENT INSERTION performed by Christopher Almonte MD at OR [facility] CYSTO/URETERO W/LITHOTRIPSY Right 05/02/2022 CYSTOURETHROSCOPY URETEROSCOPY WITH LITHOTRIPSY AND STENT INSERTION performed by Christopher Almonte MD at OR [facility] CYSTO/URETERO W/LITHOTRIPSY Right 09/26/2022 CYSTOURETHROSCOPY URETEROSCOPY WITH LITHOTRIPSY AND STENT INSERTION performed by Christopher Almonte MD at OR [facility] CYSTOSCOPY/INSERTION OF STENT 07/19/2006 CYSTOSCOPY/INSERTION OF STENT Right 05/16/2022 CYSTOURETHROSCOPY WITH INSERTION URETERAL STENT performed by Christopher Almonte MD at OR [facility] CYSTOSCOPY/URETERAL CATHETER Right 11/24/2021 CYSTOURETHROSCOPY WITH URETERAL CATHETER performed by Christopher Almonte MD at OR [facility] CYSTOURETERO W/LITHOTRIPSY 07/19/2006 EGD, FLEXIBLE, DIAGNOSTIC 11/09/2011 UPPER GI ENDOSCOPY DIAGNOSTIC performed by OLIVIA HERNANDEZ at [facility] EGD, FLEXIBLE, DIAGNOSTIC 04/19/2013 UPPER GI ENDOSCOPY DIAGNOSTIC performed by Tj Quarles MD at ENDOSCOPY [facility] EGD, FLEXIBLE, DIAGNOSTIC 12/10/2013 normal/ESOPHAGOGASTRODUODENOSCOPY (EGD), FLEXIBLE, TRANSORAL, DIAGNOSTIC performed by Olivia Hernandez MD at [facility] EGD, FLEXIBLE, DIAGNOSTIC N/A 05/12/2015 ESOPHAGOGASTRODUODENOSCOPY (EGD), FLEXIBLE, TRANSORAL, DIAGNOSTIC performed by Chris Suresh MDat OR [facility] EGD, FLEXIBLE, PLACE GASTRO TUBE N/A 04/02/2021 ESOPHAGOGASTRODUODENOSCOPY (EGD), FLEXIBLE, TRANSORAL, WITH PERCUTANEOUS GASTROSTOMY INSERTION performed by Chris Suresh MD at OR [facility] EGD, FLEXIBLE, W/BIOPSY 01/20/2010 inflammation of stomach EGD, FLEXIBLE, W/CYST DRAINAGE N/A 01/04/2021 AXIOS stent performed/due to inability to localize a site for safe percutaneous placement for PEG not completed/ESOPHAGOGASTRODUODENOSCOPY (EGD), FLEXIBLE, TRANSORAL, WITH DRAINAGE PSEUDOCYST performed by Leyda Garcia MD at OR [facility] ERCP, DIAGNOSTIC, SPECIMEN COLLECTION 07/31/2013 ENDOSCOPIC RETROGRADE CHOLANGIOPANCREATOGRAPHY (ERCP) DIAGNOSTIC performed by Darian Griffin MD at OR [facility] GASTRIC BYPASS FOR OBESITY 06/26/2000 [place]/ [place] en y INFORMATION plastic surgery pannus, arms INFORMATION 2020 Heart Cath. INSER AMY CAT,W/O PUMP;5YR/OLD N/A 12/09/2022 INSERT TUNNELED CENTRAL VENOUS CATHETER AGE 3 OR OLDER performed by Cezar Lerma DO at OR [facility] IOF CT GUIDED NEEDLE BIOPSY 06/23/2014 CT GUIDED NEEDLE ASPIRATION BIOPSY performed by Kali Velez MD at RADIOLOGY [facility] JEJUNOSTOMY, LAPAROSCOPIC N/A 04/02/2021 LAPAROSCOPIC ILEOSTOMY OR JEJUNOSTOMY performed by Chris Suresh MD at OR [facility] LAP SURGICAL, GASTROSTOMY 02/12/2014 02/12/2014 LAPAROSCOPIC GASTROSTOMY WITHOUT RECONSTRUCION GASTRIC TUBE performed by Chris Suresh MD at OR [facility] LAPARO RADICAL NEPHRECTOMY Right 11/17/2022 LAPAROSCOPIC RADICAL NEPHRECTOMY performed by Christopher Almonte MD at OR [facility] LAPAROSCOPE PROCEDURE, LIVER 07/31/2013 UNLISTED LAPAROSCOPIC PROCEDURE LIVER performed by Chris Suresh MD at [facility] LAPAROSCOPY DIAGNOSTIC 07/31/2013 LAPAROSCOPY DIAGNOSTIC performed by Chris Suresh MD at [facility] LAPAROSCOPY DIAGNOSTIC N/A 05/12/2015 05/12/2015 LAPAROSCOPY DIAGNOSTIC performed by Chris Suresh MD at [facility]/ REDUCTION OF BOWEL OBSTRUCTION 06/26/2004 Dr. Temple REMOVE GALLBLADDER 06/26/1979 Social History/Disposition Lives with: Alone (09/21/23825) Assistance available: No (friend has help issues, "bonus daughter" to come up from [facility] in the next few days) (09/21/23825) Dwelling type: Apartment (09/21/23825) Entry steps: None (none feront entrance, 3 steps back entrance) (09/21/23825) Inside steps: Elevator (09/21/23825) Bedroom location: 1st floor (09/21/23825) Bath location: 1st floor full bath (09/21/23825) Prior Level of Function Reported by: Patient (09/21/23825) Ambulation: Ambulatory with device (09/21/23825) Ambulatory Device: Cane (09/21/23825) Grooming: Independent (09/21/23825) Bathing: Independent (09/21/23825) Dressing: Independent (difficult, takes additional time, very taxing per pt) (09/21/23825) Feeding: Independent (09/21/23825) Toileting: Independent (09/21/23825) Meal Prep: Independent (hooks-up own TPN, and cooks) (09/21/23825) Homemaking: Independent (but reports she needs ssistance, (can do laundry, otherwise struggling)) (09/21/23825) Shopping: (orders delivered groceries) (09/21/23825) Medication Management: Independent (09/21/23825) Occupation/Leisure Skills: 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 Pain located head and tailbone 02/02 pre and post session. Nursing notified Observations Consciousness: Alert (09/21/23825) Orientation: Oriented times 4 (09/21/23825) Psychosocial: Patient can communicate basic needs;Patient can converse in a social setting (09/21/23825) Other Findings Light touch sensation: LUE;RUE;Intact (per pt) (09/21/23825) Coordination: LUE;RUE;Intact (09/21/23825) Current Functional Status: Bilateral Upper Extremity Hand Dominance: Right (09/21/23825) Range of Motion: WNL (09/21/23825) Strength Assessment: (generalized weakness.) (09/21/23825) Self Care Feeding: Supervision (Please comment) (setup) (09/21/23825) Toileting: Moderate Assistance (to manage after incontinence, per report. but pt reportedshe could have managed herself) (09/21/23825) Dressing Lower Body: Contact Guard (threaded leggings while seated with supervision, CG when in stance) (09/21/23825) Bed Mobility Supine-Sit: Supervision (Please comment) (HOB elevated, used rail) (09/21/23825) Sit-Supine: Supervision (Please comment) (09/21/23825) OT Transfers Sit-Stand: Contact Guard (09/21/23825) Stand-Sit: Supervision (Please comment) (09/21/23825) Alarm Status Patient positioned in: Bed (09/21/23825) With: Call garcia in reach (pt reported understanding she is not to attempt to get up without staff assisting) (09/21/23825) Patient and Family Goals: to get well and to return home and be able to go out/ socialize, be able to go visit brother (who has a condo in [place], [place]) Patient Education Education Topic: Role of OT;Plan of care goals;Energy conservation (09/21/23825) Review of Precautions: Safety;Fall (09/21/23825) Education Provided to: Patient (09/21/23825) Response to Education: Receptive and agreeable to education (09/21/23825) Barriers to learning: Medical status (09/21/23825) Preferred learning method: Combination (09/21/23825) Treatment Provided: Therapeutic Activity: 12 minutes Evaluation Low Complexity 18 minutes - [id number]: Patient was cooperative, pleasant, and alert during treatment session. Low complexity evaluation performed and ADL deficit, functional mobility deficit, bed mobility deficit, decreased strength, decreased endurance, impaired balance, and decreased activity tolerance deficits were identified that result in activity limitation. The patient does not haveany comorbidities that affect occupational performance. There were no modifications necessary to complete the evaluation. Deficits Requiring O.T. Treatment: Deficits requiring O.T. treatment needs: ADL/self-care;Balance;Endurance;Functional mobility;Safety;Upper extremity strength;Weakness (09/21/23825) Goals: Bathing: Upper: supervision. Lower: supervision Demonstrates toileting at supervision Goal Time Frame: Within 10 treatment sessions. Assessment: The patient tolerated OT fairly well. She threaded leggings while seated with supervision; CG provided when in stance to pull-up leggings. She fed herself after setup. The patient expressed multiple stressors (medical issues, decreased activity tolerance, and a friend took his own life 2 weeks ago). She made statements of feeling hopeless. This worker asked if she had plans to harm herself, which the patient said "no." The patient stated she speaks to a psychiatrist from [place] monthly and that she was agreeable to speak with someone while at [facility]. Pt's care nurse notified. OT AM-PAC score is 17. Would consider home with post-acute care services which may include outpatient therapy or home health. The level of care will be determined in collaboration with the patient, family/caregiver, and care team members. OT will follow and treat at [facility] to maximize the patient's functional skills while at the acute care level. Treatment Plan: Energy Conservation, Safety, Bed mobility training, Functional Ambulation, Transfertraining, Upper extremity strengthening, Balance activities, ADL training, Endurance Anticipated Frequency (on eval): 1 to 3 times per week (09/21/23825) AM-PAC Help From Another Person Eating Meals: A little (09/21/23825) Help From Another Person Taking Care of Personal Grooming: A little (09/21/23825) Help From Another Person To Put On/Take Off Upper Body Clothing: A little (09/21/23825) Help From Another Person To Put On/Take Off Lower Body Clothing: A little (09/21/23825) Help From Another Person Toileting: A lot (09/21/23825) Help From Another Person Bathing: A little (09/21/23825) OT AM-PAC Score: 17 (09/21/23825) OT AM-PAC t-Scale Score: 37.26 (09/21/23825) JH HLM (Highest Level of Mobility) Goal: Level 6 walk 10 steps or more (09/20/232019) documented in this encounter Nursing Notes * Jordyn Lantigua RN - 10/10/2023 11:36 AM EDT VIRTUAL RN [facility]-[address] [address] Name: Chandrika Hogue Location: [facility] [id number]-[id number]/W Date: 10/10/2023 Time: 11:36 AM I completed the Discharge Navigator. The patient was in the hospital. I was not in a hospital or clinic location. After connecting through [employer], the patient was identified by name and date of and / or wristband checked. Patient (or authorized legal human resources hr representative) was then informed that this was a Virtual Nurse visit and was being conducted confidentially over secure lines. I used a headset and other methods to ensure confidentiality for the patient. My office door was closed. No oneelse was in the room with me. Patient acknowledged consent and understanding of privacy and security of the Virtual Nurse visit. I presented the opportunity for the patient or authorized legal human resources hr representative to ask any questions regarding the visit today. The patient or authorized legal human resources hr representative agreed to participate. * Nasra Gonzales RN - 10/10/2023 9:36 AM EDT Appointments: You have a hospital follow up appointment with Diane Cano October 11, 2023 at 3:[address] [place] [address] You have an appointment with Dr. Hernandez October 17, 2023 at 3:20 pm. Gastroenterology [facility], [address] [place] [address] You have an appointment with Dr. Aris Mohr October 23, 2023 at 9:20 am. [place] [address] [place] [address] You have an appointment with Dr. Christopher Almonte December 04, 2023 at 3:45 pm. Urology, [facility] [address] , [place] [address] * Aye Charles RN - 10/07/2023 7:39 AM EDT This nurse took over patient care at 0700 from carlotta wilkinson RN. Patient resting in bed at present, appears comfortable. Respirations even and unlabored. No signs of distress. TPN running into patient's central line at 66 ml/hr per order without difficulty. Patient SpO2 98% on 6L NC, this nurseattempted to wean O2 down. Patient with SpO2 97% on 4L NC. Will continue to wean throughout shift. Call garcia within reach. Plan of care ongoing. 09- patient bladder scanned for 627mls. Patient denies urge to void. Encouraged to get OOB to bathroom to attempt to void. Dr. Zaragoza made aware via TT. See new orders. 1030 - Yin catheter placed at this time. Sterile technique maintained. Patient tolerated well. This nurse was accompanied by Ibeth Oliver RN. 500 mls of clear, concentrated urine drained from bladder immediately. * Ibeth Carter RN - 10/06/2023 10:44 PM EDT 2134: Pt assisted into the bathroom. Brief was removed and was dry. Pt attempted to void on the commode but did not have to go. Pt assisted back to bed and was bladder scanned for 319. 2245: Pt checked for incontinence and is dry. Pt kelly not feel she has to void. Primary Grade Teacher - Phuc Cedillo made aware of the above. * Micaela Scott LPN - 10/06/2023 5:34 AM EDT [address] [address] End Shift Added Details Name: Chandrika Hogue Date: 10/06/2023 Time: 5:34 AM Overall impression: stable No new or worsening signs and/or symptoms this shift: * Darleen De La Paz RN - 10/05/2023 11:06 AM EDT Patient arrived via stretcher by transport. , procedure, and consent verified with patient. Moved to fluoroscopy table. Dr. Avendano in room Time Out performed @ 1136. Site marked with sterile procedure under Fluoroscopy by Dr. Avendano. 7 ml of 1% Lidocaine given @ 1152. 20g x 3.5in Spinal Needle introduced and visualized under Fluroscopy. 13ml of clear CSF drained. Spinal needle removed intact. Patient denied any complications. Pressure held at site, cleaned withchloraprep and dressed with a bandaid. Moved from stretcher to bed, HOB @ 30 degrees. Radiologist(s): Jordan Avendano Nurse(s): Darleen De La Paz * Ana Cristina Hodge RN - 10/05/2023 12:48 AM EDT 0046 Seroquel and tramadol administered per AUG for 04/04 pain and anxiety. TPN infusing as ordered. Call garcai in reach. 0250 Oxycodone administered per AUG for 04/04 pain. 0600 Tylenol administered per AUG for pain. * Radha Mendieta RN - 10/02/2023 5:53 PM EDT 8 - PULL OVER MACHINE OPERATOR notified Rosalino Carvajal RN of BS 30. Pt lethargic but easy to arouse. A&Ox4. Rapid, deep, irregular breathing. White foamy saliva at corner of pt mouth. Pt on 5LNC at this time. 1724 - Rosalino Carvajal RN administered 50 mL dextrose per AUG. VS obtained. BP 90/55 | Pulse 115 | Temp 35.9 C (96.6 F) (Temporal Artery) | Resp 22 | Ht 1.499 m (4' 11") | Wt 43.1 kg (95 lb) | LMP 04/05/2007 | SpO2 92% | BMI 19.19 kg/m | BSA 1.34 m 1737 - TT sent to Dr. Carranza. Orders placed for ABG, CXR, end tidal CO2. 1741 - BS recheck 163. 1745 - Dr. Palma at bedside. Pt refused bipap that had been offered by provider. Provider educated pt that bipap would assist with breathing. 1749 - CXR obtained. Respiratory at bedside obtaining ABG and applying end tidal CO2. Telemetry monitoring and continuous pulse ox applied. 1800 - CRN at bedside. * Radha Mendieta RN - 10/02/2023 1:03 PM EDT Pt requesting diet change. TT sent to Dr. Carranza. Dr. Palma tells this nurse to resume prior diet. Regular diet ordered. * Radha Mendieta, MELI - 10/02/2023 12:54 PM EDT 1205 - PULL OVER MACHINE OPERATOR reported to this nurse that pt has a BS of 438. No PRNs ordered at this time. TT sent toDr. Carranza. 1210 - One time dose of 20 units insulin and sliding scale ordered. Dr. Palma requested that this nursetell pharmacy that this pt will need insulin in TPN. 1220 - Pharmacy called. Order clarified with pharmacy and Dr. Palma for insulin coverage. 1245 - 20 units insulin administered per MAR. 1415 - Recheck BS 111. * Alissa Woody RN - 10/01/2023 3:43 PM EDT Attempt to wean patient's oxygen supplementation was unsuccessful at this time. O2 nasal cannula was set to 3 L/min and patient tolerated well for 30 minutes before experiencing labored breathing andSpO2 fell to 86-87%. Patient placed back on 4 L/ min with an SpO2 of 93%- SpO2 readings were taken with an ear probe saturation reader each time. Breathing appears less labored and patient is noticeably more comfortable. Will try to wean at a later time. Call garcia within reach. Bed in lowest position. * Alissa Woody, MELI - 10/01/2023 9:20 AM EDT Blood infusion started: Patient is AAO x4. VS: T 36.6 T, 99 HR, 18 RR, 103/70 BP, SpO2 95% on 4 L/ min O2. Rate begins at 50 mL/hr. Patient was educated on s/s of reaction and was instructed to report s/s to staff if they arise (chills, shortness of breath, itchiness, flank pain, etc). Patient verbalized an understanding. This nurse remains at bedside for first 15 minutes of infusion. Patient completed 15 minutes of infusion without difficulty. Rate increased to 150 mL/ hr. Patient tolerating well. She remains AAO x4. Speech clear. Denies shortness of breath, itchiness, flank pain, chills. VS: 36.5 T, 100 HR, 18 RR, 95/68 BP, SpO2 91% on 4 L/ min O2. 1145- 1 unit of PRBCs infused. Patient assessment remains at baseline. AAO x4. VS: 36.6 T, 97 HR, 18 RR, 101/67 BP, SpO2 95% on 4 L/ min O2. No complications observed/ reported by patient at this time. * Maureen Chowdary RN - 09/30/2023 11:34 PM EDT 2323-This RN entered room during routine vitals by PCUA. SpO2 on finger reading 82% on room air. Ear probe SpO2 showed 84%. Pt placed on 4L NC. SpO2 via ear probe improved to 91%. Pt A&Ox4.Pt reports sharp shooting pains from lower back up to shoulder blades and shortness of breath r/t sharp pains in back. PRN tramadol given per AUG. hand or machine paster and provider made aware. 2354- New orders for EKG, labs, CXR and one time tylenol dose. 0005-Lab and radiology at bedside for labs and CXR * Alissa Woody RN - 09/30/2023 5:11 PM EDT Patient reported talking to invisible things/ people in her room that weren't actually present. VS:98.1 F, 104 HR, 18 RR, 101/57 BP, 91% O2 sat on room air. Patient remains fully alert and oriented.Assessment is unchanged from this AM. TT to Dr. Bacon- he is aware and requests that nursing staff continue to monitor patient for any further issues. * Kimberli Shrestha RN - 09/28/2023 11:19 AM EDT During bedside shift report pt reported chest pain. Vitals obtained. Dr. Bacon made aware EKG obtained and sent to Dr. Bacon No further orders at this time * Kimberli Shrestha RN - 09/27/2023 4:17 PM EDT Pt states that TPN is giving her "explosive diarrhea." She states that the formulation needs to be changed to address the issue. Dr. Gross made aware previously and added MAR medication. This nurse called pharmacy and was told that the formulation has been the same with no changes. Pt is also wanting to see PSYCH before her next scheduled appt. Charge nurse made aware. Explained to patient that she already had a consult and she does have an upcoming appt. She did not seem satisfied with the answer. * Tj Harvey LPN - 09/27/2023 6:07 AM EDT Pt complained of pain in stomach wrapping around to back. Pt complained of severe pain and nurse had to contact provider to give dose early; prn tramadol given early under direction of Dr Rojas. Pt tpn stopped this am at 0600 and port flushed and had positive blood return. Pt reported at this time that she had no support system and that she was going to have to contact her brother because shedidn't have enough money to pay her rent. Pt also stated that she wanted port removed and tpn stopped. Nurse advised that she should speak to physician about that and discussed ways to reduce stress/anxiety. Pt verbalized understanding and thanked nurse for talking to her. * Alissa Woody RN - 09/25/2023 4:54 PM EDT Patient reporting pain throughout the day and requesting an alternative during times when IVP morphine is not due. Pain is mainly located in abdomen in and coccyx. Patient is refusing PRN Tylenol andPRN Bentyl. Dr. Gross made aware via TT. No additional orders at this time. Distraction techniques(cell phone use, watching tv, snacking, and reading) all utilized during pain presence. * Radha Mendieta RN - 09/24/2023 6:31 PM EDT Pt care without complication this shift. TPN running at 75 mL/hr. PRN morphine administered at 1705for 9/10 tailbone pain. Pt resting comfortably in bed. All needs met at this time. * Sushila Brennan RN - 09/23/2023 12:59 PM EDT 1250 Request for lab collection from tunneled cath. Able to aspirate scant amount of blood despite positioning. Catheter has been positional. Flushes easily. Pt aware that peripheral blood draw will be required. Requests this nurse to draw labs. Labs collected from R hand. * Irma Hargrove RN - 09/23/2023 3:02 AM EDT Pts BP 86/56 MAP 66, kylah made aware, no new orders at this time * Mundo Sorto RN - 09/22/2023 1:35 PM EDT This nurse spoke with Dr. Susanne Regalado MD regarding labs (micronutrient levels) that have been ordered this afternoon. Dr. Regalado has given the okay to collect them tomorrow morning with the [facility]. * Maureen Chowdary RN - 09/20/2023 1:51 PM EDT 1245-Pt arrived to room 5105. Pt oriented to room, call garcia and instructed to ring prior to ambulating due to fall risk. Pt assessed including dual skin. BP 98/72 | Pulse 91 | Temp 35.9 C (96.6 F) (Temporal Artery) | Resp 16 | Ht 1.499 m (4' 11") | Wt 33.6 kg (74 lb 1.6 oz) | LMP 04/05/2007 | SpO2 99% | BMI 14.97 kg/m | BSA 1.18 m . Admission screening questions completed at this time. Pt resting in bed, call garcia in reach, no further needs at this time. * Maureen Chowdary RN - 09/20/2023 1:50 PM EDT Dual Licensed Skin Assessment completed by Raciel Chowdary RN and Radha Zapien LPN. The patient is/has a N/A Skin Breakdown (includes non blanchable erythema): No Scattered bruising, bony prominence sacrum, protective allevyn applied for prevention measures. documented in this encounter Miscellaneous Notes * Ancillary Progress Note - Breanne Damon, Individual Pension Consultant - 10/10/2023 11:56 AM EDT CARE MANAGEMENT - ADULT DISCHARGE NOTE [facility]-[address] [id number] Name: Chandrika Grider Mykel Location: [facility] [id number]/W Date: 10/10/2023 Time: 4:50 PM The following coordination of care and discharge plan has been coordinated with the care team, patient, family and/or caregiver according to the patients needs and preferences. Discharge Discharge Was Caregiver/Family/Facility contacted regarding discharge: Yes (10/10/23 1137) Final Discharge Plan (Complete only at time of Discharge): Home - Self Care (10/10/23 2801) Narrative: Pt was discharged home with self care. Pt declined TPN at this time. Pt was transported via Friend * Pt Handout (on AVS) - Nasra Gonzales RN - 10/10/2023 11:22 AM EDT vitamin_b12 Vitamin B-12 Does this test have other names? VB12, serum cobalamin, antipernicious anemia factor What is this test? This test measures the level of vitamin B-12 in your blood. You need this vitamin to make red bloodcells and for your nervous system to function as it should. You get vitamin B-12 from eating foods that come from animals, such as meat, eggs, and dairy products. Vitamin B-12 is also added to some cereals. You can also take this vitamin as a supplement in pill form. Why do I need this test? You may need this test if your healthcare provider suspects that your vitamin B- 12 level is low. A low level of vitamin B-12 is called vitamin B-12 deficiency. You are more likely to have vitamin B-12 deficiency if you are an older adult, have a digestive disorder called malabsorption, have had digestive surgery, or eat a vegan diet. People who are or and eat a vegetarian-type diet are at high risk for this deficiency in themselves and their babies. You may also need this test if you've been diagnosed with pernicious anemia. Pernicious anemia involves a lack of a protein found in your stomach that makes it hard to absorb vitamin B-12. These are common symptoms of vitamin B-12 deficiency: Fatigue Weakness Weight loss Tingling or numbness of the hands and feet Constipation Poor balance Confusion Depression Memory loss Soreness of the mouth or tongue What other tests might I have along with this test? Your healthcare provider may order other tests to help find out the cause of your vitamin B-12 deficiency. These tests may include: Complete blood count Peripheral blood smear, which involves looking at your blood cells under a microscope Folic acid level. This vitamin is also important for red blood cell production. Methylmalonic and homocysteine levels, which are part of vitamin B-12 and folate metabolism What do my test results mean? Test results may vary depending on your age, gender, health history, and other things. Your test results may be different depending on the lab used. They may not mean you have a problem. Ask your healthcare provider what your test results mean for you. Vitamin B-12 is measured in picograms per milliliter (pg/mL). Normal results are: 200 to 800 pg/mL for adults 160 to 1,300 pg/mL for newborns If your results are low, you may have: Pernicious anemia Malabsorption from inflammatory bowel disease or other causes Poor absorption because of surgery Tapeworm infection Too little intake of animal protein Folic acid deficiency Iron deficiency If your levels are high, you may have: Liver or kidney disease Diabetes Obesity White blood cell cancer High levels may also mean that you have COPD (chronic obstructive pulmonary disease), heart failure, or a rare type of blood cancer called polycythemia vera. How is this test done? The test is done with a blood sample. A needle is used to draw blood from a vein in your arm or hand. Does this test pose any risks? Having a blood test with a needle carries some risks. These include bleeding, infection, bruising, and feeling lightheaded. When the needle pricks your arm or hand, you may feel a slight sting or pain. Afterward, the site may be sore. What might affect my test results? Certain conditions may affect your test results. These include: Recent blood transfusions Smoking Medicines in general may also affect your results. Specific medicines include supplements of vitamin A or C and control pills. How do I get ready for this test? Follow your healthcare provider's directions about not eating or drinking for a specific time before the test. You may be able to drink water. You should not have a vitamin B-12 injection before the test. Be sure your healthcare provider knows about all medicines, herbs, vitamins, and supplements you are taking. This includes medicines that don't need a prescription and any illegal drugs you may use. Last Reviewed Date: 02/24/202219993483-6881 [employer]. All rights reserved. This information is not intended as a substitute for professional medical care. Always follow your healthcare professional's instructions. * Pt Handout (on AVS) - Nasra Gonzales RN - 10/10/2023 11:22 AM EDT Images from the original note were not included. [address] Sodium Bicarbonate Oral Tablet Uses This medicine is used for the following purposes: indigestion metabolism disorder urine acid levels Instructions Swallow the tablet whole or dissolve in some water and then drink. Store at room temperature away from heat, light, and moisture. Do not keep in the bathroom. This medicine can reduce the absorption of other medicines. Talk to your doctor or pharmacist aboutthe best times to use this product. Tell your doctor and pharmacist about all your medicines. Include prescription and yrne-tgy-ogtsyofsriixjxpp, vitamins, and herbal medicines. This medicine contains sodium. If you are on a low sodium diet, consider this as part of your totalsodium diet. If you have been told to follow a low sodium diet, speak to your doctor before using this medicine. Cautions Tell your doctor and pharmacist if you ever had an allergic reaction to a medicine. Some patients with weak hearts may have worsening of symptoms. If you notice difficulty breathing, weight gain, or swelling of your legs or ankles, let your doctor know right away. Do not use the medication any more than instructed. Tell the doctor or pharmacist if you are , planning to be , or . Do not share this medicine with anyone who has not been prescribed this medicine. Side Effects The following is a list of some common side effects from this medicine. Please speak with your doctor about what you should do if you experience these or other side effects. bloating excess gas nausea stomach upset or abdominal pain thirst Call your doctor or get medical help right away if you notice any of these more serious side effects: swelling of the legs, feet, and hands shortness of breath sudden or unexplained weight gain Extra Please speak with your doctor, nurse, or pharmacist if you have any questions about this medicine. [email or web address] IMPORTANT NOTE: This document tells you briefly how to take your medicine, but it does not tell youall there is to know about it. Your doctor or pharmacist may give you other documents about your medicine. Please talk to them if you have any questions. Always follow their advice. There is a more complete description of this medicine available in Slovenian. Scan this code on your smartphone or tablet or use the web address below. You can also ask your pharmacist for a printout. If you have any questions, please ask your pharmacist. The display and use of this drug information is subject to Terms of Use. Copyright(c) 2022 [employer]. [employer]. All rights reserved. This information is not intended as a substitute for professional medical care. Always follow your healthcare professional's instructions. * Pt Handout (on AVS) - Nasra Gonzales RN - 10/10/2023 11:22 AM EDT Images from the original note were not included. [id number] Oxycodone Oral Tablet Brands: Roxicodone Uses For pain. Instructions This medicine may be taken with or without food. Swallow with a full glass (8 oz) of water unless your doctor gives you different instructions. Store at room temperature away from heat, light, and moisture. Do not keep in the bathroom. Please ask your doctor, nurse, or pharmacist how to discard unused medicines safely. To reduce constipation, eat high fiber foods, drink plenty of water and exercise. Avoid grapefruit and grapefruit juice while on this medicine. Drug interactions can change how medicines work or increase risk for side effects. Tell your healthcare providers about all medicines taken. Include prescription and asok-yrr-nocrnqb medicines, vitamins, and herbal medicines. Speak with your doctor or pharmacist before starting or stopping any medicine. Tell your doctor if symptoms do not get better or if they get worse. Cautions This medicine has an opioid. Opioids help many people but may cause addiction, especially if used for a long time. The addiction risk is higher if you have a substance use disorder (overuse of or addiction to drugs or alcohol). Ask your doctor about the benefits and risks. Ask your doctor or pharmacist if you should have naloxone on hand to treat opioid overdose. Teach your family or household members about the signs of an opioid overdose and how to treat it. If you stop this medicine suddenly after using it for a long time, you may have withdrawal. Your doctor may slowly lower your dose before stopping it. Tell your doctor right away if you have symptoms, such as unusual sweating, watering eyes, runny nose, chills, diarrhea, yawning, muscle aches, restlessness, anxiety, trouble sleeping, or thoughts of suicide. Tell your doctor and pharmacist if you ever had an allergic reaction to a medicine. Do not use the medication any more than instructed. If possible, avoid using with alcohol, marijuana, or other medicines that can cause dizziness or drowsiness. These include allergy/cold products, muscle relaxers, sleep aids, and pain relievers. Your ability to stay alert or to react quickly may be impaired by this medicine. Do not drive or operate machinery until you know how this medicine will affect you. This medicine passes into breast milk. Ask your doctor before . This medicine can hurt a new baby in the womb. If you become while on this medicine, tell your doctor immediately. Your doctor may switch you to a different medicine. This medicine should be used with caution in patients with breathing difficulties. Call your doctor right away if you notice slow or shallow breathing. Do not share this medicine with anyone who has not been prescribed this medicine. Some patients have serious side effects from this medicine. Ask your pharmacist to show you the information from the Food and Drug Administration (FDA) and discuss it with you. Side Effects The following is a list of some common side effects from this medicine. Please speak with your doctor about what you should do if you experience these or other side effects. decreased appetite constipation dizziness or drowsiness lightheadedness nausea and vomiting If you have any of the following side effects, you may be getting too much medicine. Please contactyour doctor to let them know about these side effects. confusion fainting unusual or unexplained tiredness or weakness difficulty or discomfort urinating Call your doctor or get medical help right away if you notice any of these more serious side effects: agitated feeling or trouble sleeping decreased awareness or responsiveness breathing interruption during sleep shallow, irregular breathing changes in memory, mood, or thinking hallucinations (unusual thoughts, seeing or hearing things that are not real) seizures severe stomach or bowel pain weight loss A few people may have an allergic reaction to this medicine. Symptoms can include difficulty breathing, skin rash, itching, swelling, or severe dizziness. If you notice any of these symptoms, seek medical help quickly. Extra Please speak with your doctor, nurse, or pharmacist if you have any questions about this medicine. [email or web address] IMPORTANT NOTE: This document tells you briefly how to take your medicine, but it does not tell youall there is to know about it. Your doctor or pharmacist may give you other documents about your medicine. Please talk to them if you have any questions. Always follow their advice. There is a more complete description of this medicine available in [place]ian. Scan this code on your smartphone or tablet or use the web address below. You can also ask your pharmacist for a printout. If you have any questions, please ask your pharmacist. The display and use of this drug information is subject to Terms of Use. Copyright(c) 2022 [employer]. 4985-4863 [employer]. All rights reserved. This information is not intended as a substitute for professional medical care. Always follow your healthcare professional's instructions. * Pt Handout (on AVS) - Nasra Gonzales RN - 10/10/2023 11:21 AM EDT Images from the original note were not included. [id number] Cholestyramine Resin Powder For Oral Suspension Brands: Prevalite, Questran Uses This medicine is used for the following purposes: diarrhea drug overdose itching high blood fat levels Instructions Carefully follow the instructions provided for mixing the medicine with water. Use only the measuring scoop that comes with the medicine. Drink the medicine immediately after mixing. After taking other medicines, wait at least 1 hour before taking this medicine. Do not take any other medicines for 4 hours after taking this medicine. Store at room temperature away from heat, light, and moisture. Do not keep in the bathroom. Drink extra water while on this medicine. Adults should try to drink 6-8 cups (48 to 64 oz.) of water every day. To reduce constipation, eat high fiber foods, drink plenty of water and exercise. This medicine can reduce the absorption of other medicines. Talk to your doctor or pharmacist aboutthe best times to use this product. It may take several weeks for this medicine to fully work. If you are using this medicine regularly, it is important to take each dose of medicine on time. Keep taking the medicine even if you feel well. It is important that you keep taking each dose of this medicine on time even if you are feeling well. If you forget to take a dose on time, take it as soon as you remember. If it is almost time for thenext dose, do not take the missed dose. Return to your normal schedule. Do not take 2 doses at one time. Drug interactions can change how medicines work or increase risk for side effects. Tell your healthcare providers about all medicines taken. Include prescription and oytz-upi-fvtonic medicines, vitamins, and herbal medicines. Speak with your doctor or pharmacist before starting or stopping any medicine. Keep all appointments for medical exams and tests while on this medicine. Cautions Tell your doctor and pharmacist if you ever had an allergic reaction to a medicine. Do not use the medication any more than instructed. Tell the doctor or pharmacist if you are , planning to be , or . Do not share this medicine with anyone who has not been prescribed this medicine. Side Effects The following is a list of some common side effects from this medicine. Please speak with your doctor about what you should do if you experience these or other side effects. abdominal cramps irritation around the anus bloating constipation or diarrhea excess gas nausea and vomiting stomach upset or abdominal pain Call your doctor or get medical help right away if you notice any of these more serious side effects: unusual bruising or discoloration on skin confusion shortness of breath stomach pain A few people may have an allergic reaction to this medicine. Symptoms can include difficulty breathing, skin rash, itching, swelling, or severe dizziness. If you notice any of these symptoms, seek medical help quickly. Extra Please speak with your doctor, nurse, or pharmacist if you have any questions about this medicine. [email or web address] IMPORTANT NOTE: This document tells you briefly how to take your medicine, but it does not tell youall there is to know about it. Your doctor or pharmacist may give you other documents about your medicine. Please talk to them if you have any questions. Always follow their advice. There is a more complete description of this medicine available in [place]ian. Scan this code on your smartphone or tablet or use the web address below. You can also ask your pharmacist for a printout. If you have any questions, please ask your pharmacist. The display and use of this drug information is subject to Terms of Use. Copyright(c) 2022 [employer]. [employer]. All rights reserved. This information is not intended as a substitute for professional medical care. Always follow your healthcare professional's instructions. * Pt Handout (on AVS) - Nasra Gonzales RN - 10/10/2023 11:21 AM EDT Images from the original note were not included. [id number] Buspirone Oral Tablet Brands: Buspar Uses For anxiety. Instructions This medicine may be taken with or without food. This medicine will work best if you take it at about the same time every day. Keep the medicine at room temperature. Avoid heat and direct light. Avoid grapefruit and grapefruit juice while on this medicine. It is important that you keep taking each dose of this medicine on time even if you are feeling well. If you forget to take a dose on time, take it as soon as you remember. If it is almost time for thenext dose, do not take the missed dose. Return to your normal schedule. Do not take 2 doses at one time. Tell your doctor and pharmacist about all your medicines. Include prescription and nisq-uep-rtdebhbmlyvjihye, vitamins, and herbal medicines. Cautions Tell your doctor and pharmacist if you ever had an allergic reaction to a medicine. Do not use the medication any more than instructed. Your ability to stay alert or to react quickly may be impaired by this medicine. Do not drive or operate machinery until you know how this medicine will affect you. Do not drink beverages with alcohol while on this medicine. Tell the doctor or pharmacist if you are , planning to be , or . Do not start or stop any other medicines without first speaking to your doctor or pharmacist. Call your doctor right away if you notice any unusual bleeding or bruising. Do not share this medicine with anyone who has not been prescribed this medicine. Side Effects The following is a list of some common side effects from this medicine. Please speak with your doctor about what you should do if you experience these or other side effects. agitated feeling or trouble sleeping blurry vision dizziness or drowsiness lack of energy and tiredness headaches nausea red, burning, or itchy skin Call your doctor or get medical help right away if you notice any of these more serious side effects: chest pain face appearing mask-like fast or irregular heart beats uncontrollable movement of face, tongue, arms or legs muscle aches, spasms or abnormal movements A few people may have an allergic reaction to this medicine. Symptoms can include difficulty breathing, skin rash, itching, swelling, or severe dizziness. If you notice any of these symptoms, seek medical help quickly. Extra Please speak with your doctor, nurse, or pharmacist if you have any questions about this medicine. [email or web address] IMPORTANT NOTE: This document tells you briefly how to take your medicine, but it does not tell youall there is to know about it. Your doctor or pharmacist may give you other documents about your medicine. Please talk to them if you have any questions. Always follow their advice. There is a more complete description of this medicine available in [place]ian. Scan this code on your smartphone or tablet or use the web address below. You can also ask your pharmacist for a printout. If you have any questions, please ask your pharmacist. The display and use of this drug information is subject to Terms of Use. Copyright(c) 2022 [employer]. 6549-4761 [employer]. All rights reserved. This information is not intended as a substitute for professional medical care. Always follow your healthcare professional's instructions. * Pt Handout (on AVS) - Nasra Gonzales RN - 10/10/2023 11:19 AM EDT [id number] Heart Failure What is heart failure? The heart is a muscle that pumps oxygen-rich blood to all parts of the body. When you have heart failure, the heart can?t pump as well as it should. Or the heart muscle can?t relax and fill the pumping chamber with blood. Blood and fluid may back up into the lungs. This causes heart failure. And itcauses pulmonary edema. Some parts of the body also don?t get enough oxygen-rich blood. This means they can't work well. These problems lead to the symptoms of heart failure. What causes heart failure? Heart failure may result from: Heart valve disease High blood pressure Active infections of the heart valves or heart muscle, such as endocarditis A past heart attack Coronary artery disease Disease of the heart muscle (cardiomyopathy) Heart problems that are present at (congenital heart defects) Heart rhythm problems (arrhythmias) Long-term (chronic) lung disease and pulmonary embolism A reaction to medicines, such as those used for chemotherapy Anemia and too much blood loss Thyroid disorders Diabetes Alcohol and drug abuse Certain viral infections What are the symptoms of heart failure? The most common symptoms of heart failure are: Shortness of breath while resting, exercising, or lying flat Weight gain from water retention Visible swelling of the legs, ankles, and feet from fluid buildup. Sometimes the belly (abdomen)may swell. Severe tiredness (fatigue) and weakness Loss of appetite, nausea, and belly pain Cough that doesn?t go away. It can cause blood-tinged or frothy sputum. The severity of the condition and symptoms depends on how much of the heart's pumping ability has been affected. The first step in managing heart failure symptoms is knowing your baselines or what?s normal for you. How much do you weigh? Are you gaining weight but eating the same amount? How much can you do before you feel short of breath? Do your socks and shoes fit comfortably? Knowing what?s normal for you will help you see when symptoms are getting worse. Once you know your baselines, watchfor changes daily. The symptoms of heart failure may look like other health problems. Always see your healthcare provider for a diagnosis. How is heart failure diagnosed? Your healthcare provider will ask about your health history. They will give you a physical exam. You may need tests, such as: Chest X-ray. This test makes images of internal tissues, bones, and organs on film. This test shows the size and shape of your heart. Fluid in the lungs will also show up on X-ray. Echocardiogram. This test is also called an echo. It uses sound waves to assess the motion of the heart?s chambers and valves. The sound waves make an image on the screen as an ultrasound transducer is passed over the heart. This shows how well the heart pumps and relaxes. It also shows the thickness of the heart acosta, and if the heart is enlarged. It can assess heart valve function and bloodflow as well. It is one of the most useful tests because it shows a lot of information about the heart?s function. And it can help guide treatment choices. Electrocardiogram. This test records the electrical activity of the heart. It shows abnormal rhythms. It can sometimes find heart muscle damage. BNP testing. B-type natriuretic peptide (BNP) is a hormone released from the ventricles that occurs with heart failure. BNP levels are useful in the quick assessment of heart failure. The higher the BNP levels, the worse the heart failure. BNP is measured from a blood sample. Cardiac MRI. This test uses a magnetic field to make images of the heart and its nearby tissues.It can assess how the heart muscle and valves are working. How is heart failure treated? The cause of heart failure will guide the treatment plan. If heart failure is caused by a valve problem or coronary heart disease, then you may need a procedure. This may be a percutaneous coronary intervention. Or it may be surgery. If heart failure is caused by a problem, such as anemia or an infe ction, you may need medicine to treat this problem. Some causes of heart failure are reversible or short-term, such as an acute infection. For many causes of heart failure there is no cure. But many forms of treatment can help with symptoms. They are listed below. Lifestyle changes These healthy habits may help with heart failure: Controlling blood pressure Controlling blood sugar if you have diabetes Quitting smoking Maintaining a healthy weight. Losing weight, if needed Regular exercise Limiting salt and fat in your diet Not drinking alcohol or using illicit drugs Getting enough rest Reducing stress Other important lifestyle habits include getting vaccines, such as for the flu and pneumococcal pneumonia. If you have sleep problems, getting a sleep study can help find out what?s causing them. You may need to wear a C-PAP mask while you sleep. This will make sure you get enough oxygen. Too little oxygen can put stress on your heart. Medicines Many types of medicines are available for heart failure. They include: Angiotensin converting enzyme (EDDIE) inhibitors. These lower the pressure inside the blood vessels. This reduces the pressure that the heart has to pump against. They can also help the heart have better pumping ability over time. Angiotensin receptor blockers (ARB). Some people get a cough and need to stop taking EDDIE inhibitors. If that happens, an ARB may work for you. These help relax blood vessels and reduce stress on the heart. Angiotensin receptor-neprilysin inhibitors (ARNIs). This medicine combines an ARB and a neprilysin inhibitor. This can help the heart as noted above. And it can promote salt and water loss. This medicine is preferred over EDDIE inhibitors and ARBs alone. Diuretics. These reduce the amount of fluid in the body. They are among the most important medicines in helping control fluid buildup in the body. Beta-blockers. These reduce the heart?s tendency to beat faster. They can also help the heart pump better over time. Aldosterone blockers. These block the effects of the hormone aldosterone. This hormone causes sodium and water retention. Vasodilators. These include hydralazine and nitroglycerin. These widen (dilate) the blood vessels. They reduce the workload on the heart. Statins or PCSK9 inhibitors. These lower the amount of bad cholesterol in your blood. They are not used to treat heart failure. But you may take one if you have high cholesterol. Or you may take one if you have had a past heart attack and are at risk for heart failure. People who have inherited forms of high cholesterol (familial hypercholesterolemia) may get help from PCSK9 inhibitors. These medicines lower cholesterol. Sodium-glucose cotransporter-2 (SGLT2) inhibitors. They block your kidneys from reabsorbing sugar from the blood. This helps your body get rid of extra salt and water and so lowers your blood pressure. Lowering your blood pressure eases the strain on your heart. Digitalis. This medicine helps the heart beat stronger. It may help with controlling heart rate if there is an abnormal heart rhythm. Antiarrhythmics. These help keep normal heart rhythm. Sinus node I-f channel keesha. This may be used to lower your heart rate. It may result in lessstress on your heart. This medicine is reserved for people who still have high resting heart rates despite use of beta blockers. Heart procedures These include opening blocked arteries in the heart. This brings back blood flow to the heart muscle. It helps the ventricles squeeze as they should. The procedure can be done in the cardiac catheterization lab. It uses balloons to push plaque and blood clots out of the artery. It also uses stents to keep the artery open. This can also be done by bypassing blockages during surgery (coronary artery bypass surgery). Heart valve repair or replacement In some cases, medicines can?t help heart failure caused by heart valves that are narrowed (stenosed) or leak (regurgitant). The heart valve can be repaired or replaced. This can be done as an open-heart procedure. Or it can be done by going through a small tube (catheter) that is put into an artery or vein. Pacemaker If your heart failure has also damaged your heart?s electrical wiring system, a pacemaker can be implanted. This is done to restore normal heart rate and regularity. A cardiac resynchronizing pacemaker is used when one of the natural heart wires is damaged. This is often the wire located in the left ventricle. These pacemakers use implanted left and right sided wires to restore normal timing of the heart contraction in order to improve heart function. ICD (implantable cardioverter defibrillator) When the heart muscle is damaged, dangerous heart circuits can form in the heart muscle. This leadsto heart rhythms that can cause . An ICD is implanted in the body to sense and treat these cardiac arrest rhythms. It does this by overdrive pacing the heart rhythm. Or it sends an energy shock to the heart. VAD (ventricular assist device) This device is put in the chest during a surgery. It connects to an outside motor. The motor helps pump blood from the heart to the rest of the body. VADs can allow people with advanced heart failureto improve their overall symptoms and to walk more. This can be used as a long-term treatment. Or it can be used while someone waits for a donor heart for a transplant. Heart transplant In some cases, the diseased heart must be replaced with a healthy one from a donor. Talk with your healthcare providers about the risks, benefits, and possible side effects of all treatments. What are possible complications of heart failure? Complications of heart failure include: Fluid buildup in the lungs (pulmonary edema) Kidney and liver failure Stroke Abnormal heart rhythms How daily issues affect your health Many things in your daily life impact your health. This can include transportation, money problems,housing, access to food, and children's tutor. If you can?t get to medical appointments, you may not receive the care you need. When money is tight, it may be difficult to pay for medicines. And living farfrom a grocery store can make it hard to buy healthy food. If you have concerns in any of these or other areas, talk with your healthcare team. They may know of local resources to assist you. Or they may have a staff person who can help. Mcfadden points about heart failure When you have heart failure, the heart can?t pump as well as it should. Heart failure may result from health problems that affect the heart, such as high blood pressure, coronary artery disease, and heart attack. Some common symptoms are shortness of breath, weight gain, and visible swelling of the legs and ankles. A chest X-ray can help diagnose lung congestion. Treatment varies based on the cause of heart failure. Most people are advised to make certain lifestyle changes and to take certain medicines, often for life. Procedures, such as coronary intervention and surgery, may be needed. Next steps Tips to help you get the most from a visit to your healthcare provider: Know the reason for your visit and what you want to happen. Before your visit, write down questions you want answered. Bring someone with you to help you ask questions and remember what your provider tells you. At the visit, write down the name of a new diagnosis, and any new medicines, treatments, or tests. Also write down any new instructions your provider gives you. Know why a new medicine or treatment is prescribed, and how it will help you. Also know what theside effects are. Ask if your condition can be treated in other ways. Know why a test or procedure is recommended and what the results could mean. Know what to expect if you do not take the medicine or have the test or procedure. If you have a follow-up appointment, write down the date, time, and purpose for that visit. Know how you can contact your healthcare provider if you have questions, especially after officehours or on weekends. Last Reviewed Date: 12/24/202219992142-6783 [employer]. All rights reserved. This information is not intended as a substitute for professional medical care. Always follow your healthcare professional's instructions. * Communication - Sara Austin DO - 10/10/2023 10:46 AM EDT Nutrition Support Communication Note - Tentative plan for discharge per primary team and patient is refusing TPN on discharge so will not reorder TPN at this time - Patient did not get TPN yesterday, so recommend to correct hyperkalemia (with slight increase in creatinine) and hypomagnesemia per primary team - Monitor I/Os, and daily weights - Continue PO vitamin D 50,000 units MWF, PO iron supplementation, vitamin E 400 units daily - Given one time B12 injection inpatient and continue qmonthly thereafter - Micronutrient labs ordered this admission: vitamin A, vitamin D, vitamin E, vitamin K, vitamin B1, folate, vitamin B12, MMA, copper, zinc, iron panel, ferritin - Repeat thiamine level pending, however recommend to start thiamine 100 mg PO daily - Recheck vitamin D, vitamin B12, MMA, Homocysteine, zinc and vitamin E levels (around 11/23/23) See communication below between patient and outpatient [facility] provider (pt had messaged our outpatientteam relaying that she was considering trying to do without the TPN on d/c). Provider response below: "Cyrus Gomez- I was told you wanted to go home without TPN. You were admitted to the hospital to safely get you on a safe TPN regiment. Im glad we did because you had serious refeeding complications. IF you decide to go home without TPN, it cannot be safely restated at home without being readmittedto the hospital again. The same refeeding complications can and likely will occur again if you do not go home on TPN after this admission. It is, however, which it always should be, YOUR wishes whether or not you want to continue TPN. Glad you are doing better with your breathing and kidney function. --CDS" Case discussed with Dr. Austin. We will monitor remotely. Please let us know if pt changes her mind and would like to resume TPN. Please tigertext with any questions or concerns. Susanne Regalado MD Nutrition and Weight Management Discussed with Dr. Regalado. Edited note above. Sara Austin DO Associate Physician Nutrition and Weight Management Department * Care Plan - Evelyn Figueredo RN - 10/10/2023 7:04 AM EDT Clinical Goal(s): patient will sleep >4 hours throughout this shift. (10/09/23 1925) Possible barriers to meeting goal(s)/advancing plan of care: hospital environment Stability of the patient: Moderately stable - low risk of patient condition declining or worsening Summary regarding today's goal(s): Met: Pt slept >4 hours this shift. Recommendations: Continue to promote a good sleep environment. * Care Plan - Kimberli Shrestha RN - 10/09/2023 5:28 PM EDT Clinical Goal(s): Pt will ambulate during shift (10/09/23 1500) Possible barriers to meeting goal(s)/advancing plan of care: Admitting diagnosis Stability of the patient: Moderately stable - low risk of patient condition declining or worsening Summary regarding today's goal(s): Met: Pt ambulated 3x during shift Recommendations: Continue plan of care. * Ancillary Progress Note - Maureen Thompson COTA - 10/09/2023 4:28 PM EDT PROGRESS NOTE - Occupational Therapy [facility]-[address] [id number] Name: Chandrika Hogue Location: [facility] [id number] Date: 10/09/2023 Time: 1628 PM Chandrika Hogue is a 58 year old female. Patient Status: Inpatient Insurance: Payor: [employer] G[employer] Plan: [employer] PREFERRED ENHANCED MP-DD Product Type: *No Product type* Patient Seen: at bedside, nursing cleared patient for therapy Patient Identified By: Name, ID Band and Date Diagnosis: decreased ADL and functional skills, decreased activity tolerance (10/09/231627) Status of treatment: Treatment completed (10/09/231627) Orders: OT evaluation and treatment (10/09/231627) Weight Bearing Status: Weight bearing as tolerated (10/09/231627) Precautions: Falls;Safety;Central line (10/09/231627) Total Treatment Time: 29 (10/09/231627) Subjective: "They pissed me off so instead of three days of TPN I don't want any. They tell me I amsigning my sentence but who care. I am not afraid to . I want to go out and have a life." Pt reported concern with getting into her apartment and ambulation but reported she refused to use rollator as it wouldn't fit in her apartment. She also reported she wanted to return to work . RN aware of pt's concerns. Pain: Patient has complaints of pain. Pain located in lower back. Pt reported pain was a 7/10. RN aware. Observations Consciousness: Alert (10/09/231627) Orientation: Oriented times 4 (10/03/23 1532) Psychosocial: Patient can communicate basic needs;Patient can converse in a social setting (10/09/231627) Safety awareness: The Patient verbalizes insight of current deficits.;The Patient demonstrates carryover of insight during functional tasks.;The Patient can communicate basic needs. (10/09/231627) Other Findings Light touch sensation: LUE;RUE;Intact (per pt) (09/21/23825) Coordination: LUE;RUE;Intact (09/21/23825) Current Functional Status: Activities of Daily Living: Self Care Feeding: Supervision (Please comment) (setup) (09/21/23825) Toileting: Moderate Assistance (to manage after incontinence, per report. but pt reportedshe could have managed herself) (09/21/23825) Dressing Lower Body: Supervision (Please comment) (09/27/231517) Functional Ambulation Assistive Device: Narrow base quad cane (10/09/231627) Distance in feet:: 230 (10/09/231627) Level of Assistance: Contact Guard (10/09/231627) Bed Mobility Supine-Sit: Modified Independent (10/09/231627) Sit-Supine: Modified Independent (10/09/231627) OT Transfers Sit-Stand: Supervision (Please comment) (10/09/231627) Stand-Sit: Supervision (Please comment) (10/09/231627) Patient Education Education Topic: Energy conservation (09/22/23919) Review of Precautions: Safety;Fall (09/22/23919) Method of Education: Verbalized to patient;Written information provided to patient (09/22/23919) Education Provided to: Patient (09/22/23919) Response to Education: Receptive and agreeable to education (09/22/23919) Barriers to learning: Medical status (09/22/23919) Preferred learning method: Combination (09/22/23919) Alarm Status Patient positioned in: Bed (10/09/231627) With: Call garcia in reach (10/09/231627) Treatment Provided: Therapeutic Procedure: 29 minutes Upper Extremity exercise Demonstrate Exercises: LUE;RUE;Shoulder;Elbow;Wrist;2 sets of 10;Flexion;Extension;Internal/external rotation;Shoulder shrugs;Supination/pronation (10/09/231627) Peformed in: Supine (10/09/231627) Deficits requiring O.T. treatment needs: ADL/self- care;Balance;Endurance;Functional mobility;Safety;Upper extremity strength;Weakness (09/21/23825) Assessment: Pt was agreeable to participating in treatment. OT AMPAC increased from 17 to 18. Pt required mod I supine <> sit at EOB. Pt required supervision sit <> stand with narrow basequad cane. Pt required CGA ambulating in hallway with narrow base quad cane. She experienced some LOB but was able to correct with CGA. Pt returned to room and reported she was SOB. SpO2 read 88% and required only a few seconds to increase to >90%, HR ranged from 90's-115, RN aware. Once in supine pt completed 2 sets of 10 of shoulder flexion, IR/ER, and forearm supination/pronation. She attempted shoulder shrugs, but was unable to complete 1 set of 10 due to pain in R shoulder. Pt completedthese with good tolerance. Exercises were completed to increase improvement with ADLs, functional mobility, ROM, and strength. She was left in supine with HOB elevated, call garcia in reach, and bedside table to the R. Plan: Continue treatment as directed by the OT consult. Anticipated Frequency (on eval): 1 to 3 times per week (10/09/231627) Equipment Equipment used in Therapy: Hospital bed;Quad cane (narrow quad cane) (10/09/231627) AM-PAC Help From Another Person Eating Meals: A little (10/09/231627) Help From Another Person Taking Care of Personal Grooming: A little (10/09/231627) Help From Another Person To Put On/Take Off Upper Body Clothing: A little (10/09/231627) Help From Another Person To Put On/Take Off Lower Body Clothing: A little (10/09/231627) Help From Another Person Toileting: A little (10/09/231627) Help From Another Person Bathing: A little (10/09/231627) OT AM-PAC Score: 18 (10/09/231627) OT AM-PAC t-Scale Score: 38.66 (10/09/231627) HLM (Highest Level of Mobility) Goal: Level 6 walk 10 steps or more (10/09/23 0745) * Communication - Jovanny Wilson PA-C - 10/09/2023 2:32 PM EDT Patient seen briefly this afternoon. CXR ordered by me reviewed, shows slight improvement in GGO inRUL. She is off oxygen, ambulatory pulse ox completed. Unclear cause of pneumonia. She is at risk for reflux aspiration, but she has improved significantly without the addition of steroids, making aspiration pneumonitis less likely. Completed course of cefepime. She smokes about 1 ppd, cessation was strongly encouraged, but she is not interested in quitting. Advised to have outpatient pulmonary follow up, but she declines. She lives in [place]. She will follow up with her PCP and other specialists after discharge. Recommend rpt CXR or CT outpatient in 4-6 weeks to be done by PCP (Or refer to pulm clinic closer to patient's home in [place]). * Ancillary Progress Note - Berenice Jarvis CRT - 10/09/2023 10:11 AM EDT HOME OXYGEN / EQUIPMENT QUALIFICATION- [facility] [address] [facility] [place] [address] Name: Chandrika Hogue Location: [facility] [id number] Date: 10/09/2023 Time: 10:11 AM Date and Time performed: 10/09/2023 at 10:11 AM 1. Lab Results (On Room Air): Inpatient- Testing must be performed within 48 hours prior to discharge. Rest: SpO2 94 % Date: 10/09/2023 2. Is SpO2 on room air at rest greater than 88%? yes If greater than 88% 3. Exercise Only: SpO2(Exercise-Room Air): 94 % SpO2(Exercise w/O2 flow rate): 90 %, O2 flow rate: 0 LPM Date: 10/09/2023 Pt walked 255ft, with assist of a cane. * Communication - Susanne Regalado MD - 10/09/2023 9:36 AM EDT Nutrition Support Communication Note Nutrition Support Communication Note: - Plan for discharge today per primary team and patient is refusing TPN on discharge so will not reorder TPN at this time - Monitor I/Os, and daily weights - Continue PO vitamin D 50,000 units MWF, PO iron supplementation, vitamin E 400 units daily - Given one time B12 injection inpatient and continue qmonthly thereafter - Micronutrient labs ordered this admission: vitamin A, vitamin D, vitamin E, vitamin K, vitamin B1, folate, vitamin B12, MMA, copper, zinc, iron panel, ferritin - Repeat thiamine level pending - Recheck vitamin D, vitamin B12, MMA, Homocysteine, zinc and vitamin E levels (around 11/23/23) - Discussed with TPN pharmacist Suhail Rojas and hospitalist Dr. Zaragoza Case discussed with Dr. Liang. Please tigertext with any questions or concerns. Susanne Regalado MD Nutrition and Weight Management Associated attestation - Liane Liang MD - 10/09/2023 7:40 PM EDT I have discussed the patient's management with the medical trainee and agree with the note. Please refer to the documented findings and plan of care. This patient's visit today consisted of a service. I have reviewed the medical history, diagnosis, and plan, as performed by the trainee. Given pt refusal of TPN, Strongly recommend goals of care discussion, especially in regards to nutrition optimization. Liane Liang MD * Communication - Gerald Marshall MD - 10/09/2023 8:14 AM EDT Neurology Plan of Care Note - Patient with a PMH of possible multiple sclerosis who initally presented with failure to thrive while being on TPN. MRI of central nervous system axis was negative for clear signs of MS and there is but does show some arthritic changes. LP was completed an not overtly abnormal with a normal protein, glucose and nucleated cells. -- neurology will sign off at this time -- primary neurologist can follow up on the MS panel which will take 1-2 weeks to return -- no indication for steroids at this time -- please page with further questions/concerns. Gerald Marshall MD * Care Plan - Andreea Silva RN - 10/08/2023 5:49 PM EDT Clinical Goal(s): Patient will have adquate pain control during shift (10/08/23 0711) Possible barriers to meeting goal(s)/advancing plan of care: admitting diagnosis Stability of the patient: Moderately stable - low risk of patient condition declining or worsening Summary regarding today's goal(s): Met: Pt had adequate pain control this shift with PRN pain medication. Recommendations: continue plan of care * Communication - Juliet Boswell MD - 10/08/2023 11:00 AM EDT Nutrition Support Communication Note TPN to continue this evening. Decrease potassium acetate to 20 mEq. Juliet Boswell MD * Care Plan - Kristina Green RN - 10/08/2023 6:01 AM EDT Clinical Goal(s): Pt will report adequae pain control this shift. (10/07/23 2300) Possible barriers to meeting goal(s)/advancing plan of care: acuity of illness, migraines, FTT Stability of the patient: Moderately stable - low risk of patient condition declining or worsening Summary regarding today's goal(s): Met: Pt slept throughout the night without reports of pain until this am Recommendations: continue with current treatment plan, PRN medications * Care Plan - Aye Charles RN - 10/07/2023 6:01 PM EDT Clinical Goal(s): Patient will report adequate pain control during shift (10/07/23 0716) Possible barriers to meeting goal(s)/advancing plan of care: chronic pain Stability of the patient: Moderately stable - low risk of patient condition declining or worsening Summary regarding today's goal(s): Met: Patient with adequate pain control during this nurse's shift Recommendations: continue to monitor s/s pain and medicate prn * Ancillary Progress Note - Porsche Emanuel PTA - 10/07/2023 12:50 PM EDT PROGRESS NOTE - Physical Therapy [facility]-[address] [address] Name: Chandrika Hogue Location: [facility] [id number] Date: 10/07/2023 Time: 12:50 PM Chandrika Hogue is a/an 58 year old female. Patient Status: Inpatient Insurance: Payor: CHARLIE MOY Plan: Clemente MOY PREFERRED ENHANCED MP-DD Product Type: *No Product type* Patient Seen: at bedside, nursing cleared patient for therapy Patient Identified By: Name, ID Band and Date Diagnosis: FTT (10/07/23 125) Status of treatment: Treatment completed (10/07/23 125) Orders: OOB (09/22/23 09) Weight Bearing Status: Weight bearing as tolerated (10/07/231249) Precautions: Yin;Oxygen;Safety (10/07/23 125) Total Treatment Time--free text: 53 minutes (10/07/23 125) Subjective: "I am not going home with oxygen I can tell you that right now" Pain: No complaints of pain P.T. Bed Mobility Roll (Right): Independent (09/22/23 0900) Roll (Left): Independent (09/22/23 0900) Supine-Sit: Independent (10/07/23 1250) Sit-Supine: Independent (10/07/23 125) Transfers Sit-Stand: Modified Independent (10/07/23 1250) Stand-Sit: Modified Independent (10/07/23 125) W/C-Bed/Mat: Supervision (10/06/23 1540) Ambulation: Distance ambulated (feet): 420 + 180 ft Assistive Device: Rollator Assist: Supervision Balance Sit (Static): Good (10/07/23 1250) Sit (Dynamic): Good (10/07/23 1250) Stand (Static): Fair (10/07/23 1250) Stand (Dynamic): Fair (10/07/23 1250) Patient and or Family Goal(s): to return home Topic of Education: Safety with mobility, Goals/plan of care, Use of assistive device, and Fall prevention Extremity Exercise Supine: Hip;Isometrics;Ankle (10/04/23 1445) Hip : Bilateral LE;Flexion;2 sets of 10 (10/04/23 1445) Ankle: Bilateral LE;Dorsiflexion;Plantar flexion;2 sets of 10 (10/04/23 1445) Isometrics: Bilateral LE;Glute sets;2 sets of 10 (10/04/23 1445) Method of Education: Verbal discussion and explanation provided to pt: verbalized understanding andor agreement of this information Treatment Provided: Therapeutic Activities 30 minutes: bed mobility training transfer training Dynamic standing balance Gait Training 23 minutes: gait training with rollator Alarm Status Patient positioned in: Bed (10/07/23 1250) With: Call garcia in reach (10/07/23 1250) Patient Education Review of Precautions: Fall;Safety (10/07/23 1250) Review of Exercises: Pt Demonstrated Exercise;Verbal Exercises Provided (10/05/23 1600) Review of Home Program: Yes (09/29/23 1215) Safety Awareness: Patient verbalizes insight of current deficits;Patient demonstrates carryover of insight during functional tasks;Patient can communicate basic needs (10/06/23 1540) Preferred learning method: Combination (10/03/23 1130) Barriers to learning: Psychological factors;Medical Status (09/22/23 09) Method of Education: Verbalized to patient;Patient demonstrated task (09/22/23 09) Assessment: patient with an improved AM-PAC score of 20 demonstrates ability to perform bed mobility independently, transfer with mod I, and ambulate with rollator with supervision with assistance for O2 tank and hose management. Patient ambulates with steady gait and despite mild gait deviations of NBOS, decreased gait speed, and decreased stride length, no LOB noted. Patient performs several hygiene and self care tasks in standing with Fair balance and no LOB noted. Patient O2 sat ranges reys84-11% on 4L of O2 via HFNC (green tube) Deficits requiring P.T. treatment needs: Safety;Mobility;Balance;Weakness;Endurance;Lower extremitystrength (09/22/23 09) Equipment needs: Rollator (10/07/23 125) Plan: Continue with current treatment plan established on evaluation. AM PAC Score with Stairs: 20 * Communication - Juliet Boswell MD - 10/07/2023 11:05 AM EDT Nutrition Support Communication Note TPN to continue this evening without changes. Juliet Boswell MD * Diagnostic Clarification - Juan Zaragoza DO - 10/07/2023 10:19 AM EDT The patient has been diagnosed with severe sepsis with ATN & respiratory failure. * Care Plan - Carlotta Wilkinson RN - 10/07/2023 5:22 AM EDT Clinical Goal(s): Pt will report adequate pain control throughout shift. (10/06/23 193) Possible barriers to meeting goal(s)/advancing plan of care: admitting diagnosis and hospital environment Stability of the patient: Moderately stable - low risk of patient condition declining or worsening Summary regarding today's goal(s): Met: Pt rested quietly in bed in between prn pain meds with positive effects noted Recommendations: continue with plan of care * Ancillary Progress Note - Aaron Giron PTA - 10/06/2023 3:40 PM EDT PROGRESS NOTE - Physical Therapy [facility]-[address] [address] Name: Chandrika Hogue Location: [facility] [id number]/W Date: 10/06/2023 Time: 1539 Chandrika Hogue is a/an 58 year old female. Patient Status: Inpatient Insurance: Payor: [employer] GOLD Plan: [employer] GOLD PREFERRED ENHANCED MP-DD Product Type: *No Product type* Patient Seen: at bedside, nursing cleared patient for therapy Patient Identified By: Name, ID Band and Date Diagnosis: FTT (10/04/23 1445) Status of treatment: Treatment completed (10/06/23 1540) Orders: OOB (09/22/23899) Weight Bearing Status: Weight bearing as tolerated (10/06/231539) Precautions: Safety;Falls;Oxygen;Yin (10/06/231539) Total Treatment Time--free text: 40 mins (10/06/231539) Subjective: "Im feeling ok. I was wondering if you were stopping in to see me" Pain: No complaints of pain P.T. Bed Mobility Roll (Right): Independent (09/22/23899) Roll (Left): Independent (09/22/23899) Supine-Sit: Supervision (10/06/231539) Sit-Supine: Supervision (10/06/231539) Transfers Sit-Stand: Supervision (10/06/231539) Stand-Sit: Supervision (10/06/231539) W/C-Bed/Mat: Supervision (10/06/231539) Ambulation: Distance ambulated (feet): 450 Assistive Device: Rollator Assist: Supervision Balance Sit (Static): Good (10/04/231444) Sit (Dynamic): Fair (10/04/231444) Stand (Static): Fair (10/04/231444) Stand (Dynamic): Poor (10/04/231444) Patient and or Family Goal(s): to get well and to return home Topic of Education: Safety with mobility, Use of assistive device, and Fall prevention Extremity Exercise Supine: Hip;Isometrics;Ankle (10/04/23 144) Hip : Bilateral LE;Flexion;2 sets of 10 (10/04/23 144) Ankle: Bilateral LE;Dorsiflexion;Plantar flexion;2 sets of 10 (10/04/231444) Isometrics: Bilateral LE;Glute sets;2 sets of 10 (10/04/231444) Method of Education: Demonstrated the above task to pt: verbalized understanding and or agreement of this information and demonstrated the exercise and or task Treatment Provided: Therapeutic Activities 15 minutes: bed mobility training transfer training Gait Training 25 minutes: gait training with rolling walker Alarm Status Patient positioned in: Bed (10/06/231539) With: Call garcia in reach (10/06/231539) Patient Education Review of Precautions: Safety;Fall (04/12/24 1540) Review of Exercises: Pt Demonstrated Exercise;Verbal Exercises Provided (10/05/23 1600) Review of Home Program: Yes (09/29/23 1215) Safety Awareness: Patient verbalizes insight of current deficits;Patient demonstrates carryover of insight during functional tasks;Patient can communicate basic needs (10/06/23 1540) Preferred learning method: Combination (10/03/23 1130) Barriers to learning: Psychological factors;Medical Status (09/22/23 0900) Method of Education: Verbalized to patient;Patient demonstrated task (09/22/23 0900) Assessment: Pt tolerated tx fair with no reported increased pain or SOB post tx session. Pt's SPO2 post GT bout was 90% on 6L. Pt also reported feeling fatigued post tx session. Pt was yasmeen to transfer and ambulate with SBA and a Rollator. Pt is slow and fatigues easily with exertion. Pt was returned to lying supine in bed with HOB elevated. No needs post tx session. Pt instructed to not get up without assistance. Deficits requiring P.T. treatment needs: Safety;Mobility;Balance;Weakness;Endurance;Lower extremitystrength (09/22/23 0900) Equipment needs: Rollator (10/03/23 1130) Plan: Continue with current treatment plan established on evaluation. AM PAC Score with Stairs: 17 * Ancillary Progress Note - Maureen Thompson COTA - 10/06/2023 2:48 PM EDT PROGRESS NOTE - Occupational Therapy [facility]-[address] [address] Name: Chandrika Hogue Location: [facility] [id number]/W Date: 10/06/2023 Time: 1448 PM Chandrika Hogue is a 58 year old female. Patient Status: Inpatient Insurance: Payor: Clemente MOY Plan: [facility] MARYVALE CHINMAY PREFERRED ENHANCED MP-DD Product Type: *No Product type* Patient Seen: at bedside, nursing cleared patient for therapy Patient Identified By: Name, ID Band and Date Diagnosis: decreased ADL and functional skills, decreased activity tolerance (10/06/23 1448) Status of treatment: Treatment completed (10/06/231447) Orders: OT evaluation and treatment (10/06/231447) Weight Bearing Status: Weight bearing as tolerated (10/06/231447) Precautions: Falls;Safety;Central line;Oxygen (6L O2 via NC) (10/06/231447) Total Treatment Time: 42 (10/06/231447) Subjective: "My pain has moved from my lower back to my R shoulder." Pain: Patient has complaints of pain. Pain located in R shoulder, down tricep, and pt reported numbness down the outside of arm from shoulder to pinky. Pt noted pain was 9/10. RN aware. Observations Consciousness: Alert (10/06/231447) Orientation: Oriented times 4 (10/03/231531) Psychosocial: Patient can communicate basic needs;Patient can converse in a social setting (10/06/231447) Safety awareness: The Patient verbalizes insight of current deficits.;The Patient demonstrates carryover of insight during functional tasks.;The Patient can communicate basic needs. (10/06/231447) Other Findings Light touch sensation: LUE;RUE;Intact (per pt) (09/21/23825) Coordination: LUE;RUE;Intact (09/21/23825) Current Functional Status: Activities of Daily Living: Self Care Feeding: Supervision (Please comment) (setup) (09/21/23825) Toileting: Moderate Assistance (to manage after incontinence, per report. but pt reportedshe could have managed herself) (09/21/23825) Dressing Lower Body: Supervision (Please comment) (09/27/231517) Functional Ambulation Assistive Device: No device (09/27/231517) Distance in feet:: 2 (09/27/231517) Level of Assistance: Contact Guard (09/27/231517) Bed Mobility Supine-Sit: Modified Independent (09/27/231517) Sit-Supine: Supervision (Please comment) (09/27/231517) OT Transfers Sit-Stand: Contact Guard (09/27/231517) Stand-Sit: Contact Guard (09/27/231517) Patient Education Education Topic: Energy conservation (09/22/23919) Review of Precautions: Safety;Fall (09/22/23919) Method of Education: Verbalized to patient;Written information provided to patient (09/22/23919) Education Provided to: Patient (09/22/23919) Response to Education: Receptive and agreeable to education (09/22/23919) Barriers to learning: Medical status (09/22/23919) Preferred learning method: Combination (09/22/23919) Alarm Status Patient positioned in: Bed (10/06/231447) With: Call garcia in reach (alarm settings unchanged from prior to OT arrival) (10/06/231447) Treatment Provided: Therapeutic Procedure: 42 minutes Upper Extremity exercise Demonstrate Exercises: LUE;RUE;Shoulder;Elbow;Wrist;Grasp;1 set of 10;3 sets of 10;Flexion;Extension;Internal/external rotation;Shoulder shrugs;Supination/pronation (10/06/231447) Peformed in: Supine (10/06/231447) Deficits requiring O.T. treatment needs: ADL/self- care;Balance;Endurance;Functional mobility;Safety;Upper extremity strength;Weakness (09/21/23825) Assessment: Pt was agreeable to participating in treatment. OT AMPAC remained the same at 17. Pt was in supine, she declined mobility and ADLs. Pt was in supine upon arrival to room. She completed 1 set of 10 of shoulder shrugs and was unable to do more due to pain in R shoulder. She completed 3 sets of 10 of shoulder flexion with LUE but only 2 sets of 10 with RUE. Pt completed 3 sets of 10 of elbow flexion/extension (2 sets with yellow theraband), IR/ER and forearm supination/pronation. Pt received/educated on red (soft), blue (medium) and green (firm) therapy sponges to assist with fine/gross motor strength and coordination. Pt verbalized understanding. Pt completed these with fair-good t charisma. Exercises were completed to increase improvement with ADLs, functional mobility, ROM, andstrength. Pt was on 6L O2 via NC throughout tx, SpO2 and HR WFL. Pt was left in supine with HOB elevated, call garcia in reach, and bedside table to the R. Plan: Continue treatment as directed by the OT consult. Anticipated Frequency (on eval): 1 to 3 times per week (10/06/231447) Equipment Equipment used in Therapy: Hospital bed (10/06/231447) AM-PAC Help From Another Person Eating Meals: A little (10/06/231447) Help From Another Person Taking Care of Personal Grooming: A little (10/06/231447) Help From Another Person To Put On/Take Off Upper Body Clothing: A little (10/06/231447) Help From Another Person To Put On/Take Off Lower Body Clothing: A little (10/06/231447) Help From Another Person Toileting: A lot (10/06/231447) Help From Another Person Bathing: A little (10/06/231447) OT AM-PAC Score: 17 (10/06/231447) OT AM-PAC t-Scale Score: 37.26 (10/06/231447) HLM (Highest Level of Mobility) Goal: Level 5 standing (1 or more minutes) (10/06/23751) * Ancillary Progress Note - Breanne Damon, Individual Pension Consultant - 10/06/2023 1:08 PM EDT CARE MANAGEMENT - ADULT TRANSITION NOTE [facility]-[address] [address] Name: Chandrika Hogue Location: [facility] [id number]/W Date: 10/06/2023 Time: 1:12 PM Risk Stratification Risk Stratification Psycho Social / Medical Concerns Identified: Adjustment to illness/injury;Multiple Comorbidities;Chronic Kidney Disease (09/21/23 141) Accessed Neighborly to connect patients to social care resources: No (09/21/23 141) Readmission Risk Score: 31.34 (10/06/23 1201) AM-PAC Score With Stairs : 17 (10/06/23 075) Caregiver Information Patient Contacts Name Relation Home Work Mobile Rowdy Hogue Sibling [phone] Ariella Acosta Other - (no specific identity) [phone] Margy Phillips Other - (no specific identity) [phone] Transition of Care Checklist Narrative: Patient discussed at IDT rounds LP done yesterday awaiting MS results . Pt still on oxygen trying to wean down. No D/C today. Anticipated Transportation at Discharge: Friend Patient/Family Expectations: to get well and return home Transition Planning Additional Considerations: Care Management will continue to monitor and assist with discharge planning needs * Communication - Susanne Regalado MD - 10/06/2023 1:05 PM EDT Nutrition Support Communication Note: - Reorder home TPN per [facility] note 09/07, 1.050L total volume, at goal macronutrients of 1370 Kcal, 60g amino acids, 200g dextrose, 45g lipids, thiamine 100 mg, octreotide 150 mcg, zinc 5 mg, 7 days/week - Cycle to 16 hr today - 2 g IV Mag bolus ordered - BMP, mag and phos daily - Monitor I/Os, and daily weights - Continue PO vitamin D 50,000 units MWF, PO iron supplementation, vitamin E 400 units daily - Given one time B12 injection inpatient and continue qmonthly thereafter - Micronutrient labs ordered this admission: vitamin A, vitamin D, vitamin E, vitamin K, vitamin B1, folate, vitamin B12, MMA, copper, zinc, iron panel, ferritin - Repeat thiamine level pending - Recheck vitamin D, vitamin B12, MMA, Homocysteine, zinc and vitamin E levels (around 11/23/23) - Discussed with TPN pharmacist Suhail Rojas Case discussed with Dr. May. Please tigertext with any questions or concerns. Susanne Regalado MD Nutrition and Weight Management Associated attestation - Renetta May MD - 10/06/2023 3:54 PM EDT I did not see the patient, but I have reviewed patient's case with fellow. Discussed plan with fellow and agree, as noted below. * Care Plan - Kailey Vides RN - 10/06/2023 6:27 AM EDT Clinical Goal(s): Pt's POX will be WNL this shift (10/06/23 0200) Possible barriers to meeting goal(s)/advancing plan of care: non-compliance Stability of the patient: Moderately unstable - medium risk of patient condition declining or worsening Summary regarding today's goal(s): Met: Pts VS WNL throughout shift Recommendations: Continue plan of care * Ancillary Progress Note - Aaron Giron PTA - 10/05/2023 4:00 PM EDT PROGRESS NOTE - Physical Therapy [facility]-[address] [address] Name: Chandrika Hogue Location: [place] [id number]/ Date: 10/05/2023 Time: 1600 Chandrika Hogue is a/an 58 year old female. Patient Status: Inpatient Insurance: Payor: Clemente MOY Plan: P GOLD PREFERRED ENHANCED MP-DD Product Type: *No Product type* Patient Seen: at bedside, nursing cleared patient for therapy Patient Identified By: Name, ID Band and Date Diagnosis: FTT (10/04/23 1445) Status of treatment: Treatment completed (10/05/231599) Orders: OOB (09/22/23899) Weight Bearing Status: Weight bearing as tolerated (10/05/231599) Precautions: Safety;Falls;Yin;Oxygen (10/05/231599) Total Treatment Time--free text: 53 mins (10/05/231599) Subjective: "I would like to walk" Pain: Patient has complaints of pain. Pain located back 4/10 P.T. Bed Mobility Roll (Right): Independent (09/22/23 09) Roll (Left): Independent (09/22/23899) Supine-Sit: Supervision (10/05/231599) Sit-Supine: Supervision (10/05/231599) Transfers Sit-Stand: Contact Guard (04/11/24 1600) Stand-Sit: Contact Guard (10/05/23 1600) W/C-Bed/Mat: Contact Guard (10/05/23 1600) Ambulation: Distance ambulated (feet): 450 ft, 300 ft Assistive Device: Rollator Assist: Contact Guard Balance Sit (Static): Good (10/04/23 1445) Sit (Dynamic): Fair (10/04/23 1445) Stand (Static): Fair (10/04/23 144) Stand (Dynamic): Poor (10/04/23 144) Patient and or Family Goal(s): to get well and to return home Topic of Education: Safety with mobility, Use of assistive device, and Fall prevention Extremity Exercise Supine: Hip;Isometrics;Ankle (10/04/23 144) Hip : Bilateral LE;Flexion;2 sets of 10 (10/04/23 1445) Ankle: Bilateral LE;Dorsiflexion;Plantar flexion;2 sets of 10 (10/04/23 1445) Isometrics: Bilateral LE;Glute sets;2 sets of 10 (10/04/23 144) Method of Education: Demonstrated the above task to pt: verbalized understanding and or agreement of this information and demonstrated the exercise and or task Treatment Provided: Therapeutic Activities 15 minutes: bed mobility training transfer training Gait Training 25 minutes: gait training with 4-wheel walker Therapeutic Exercises: 13 minutes Alarm Status Patient positioned in: Bed (10/05/23 1600) With: Call garcia in reach (10/05/23 1600) Patient Education Review of Precautions: Safety;Fall (10/05/23 1600) Review of Exercises: Pt Demonstrated Exercise;Verbal Exercises Provided (10/05/23 1600) Review of Home Program: Yes (09/29/23 1215) Safety Awareness: Patient verbalizes insight of current deficits;Patient demonstrates carryover of insight during functional tasks (10/03/23 1130) Preferred learning method: Combination (10/03/23 1130) Barriers to learning: Psychological factors;Medical Status (09/22/23 09) Method of Education: Verbalized to patient;Patient demonstrated task (09/22/23 09) Assessment: Pt tolerated tx fair with no reported increased pain, however reported feeling SOB and fatigued. Pt's SPO2 remained >90% on 10L with ambulation due to no 9L setting on tank. Pt ambulated 2 bouts with a seated rest break between bouts. Pt is slow and unsteady as well as being unsafe to ambulate without assistance. Pt performed supine exercises in the bed to increase strength and ROMto improve functional mobility. Pt left lying in bed with HOB elevated to comfort. No needs post txsession. Pt instructed to not get up without assistance. Deficits requiring P.T. treatment needs: Safety;Mobility;Balance;Weakness;Endurance;Lower extremitystrength (09/22/23 0900) Equipment needs: Rollator (10/03/23 1130) Plan: Continue with current treatment plan established on evaluation. AM PAC Score with Stairs: 17 * Ancillary Progress Note - Breanne Damon, Individual Pension Consultant - 10/05/2023 3:36 PM EDT CARE MANAGEMENT - ADULT TRANSITION NOTE [facility]-[address] [address] Name: Chandrika Hogue Location: [facility] [id number]/W Date: 10/05/2023 Time: 3:37 PM Risk Stratification Risk Stratification Psycho Social / Medical Concerns Identified: Adjustment to illness/injury;Multiple Comorbidities;Chronic Kidney Disease (09/21/23 1411) Accessed Neighborly to connect patients to social care resources: No (09/21/23 1411) Readmission Risk Score: 32.05 (10/05/23 1200) AM-PAC Score With Stairs : 16 (10/05/23 0804) Caregiver Information Patient Contacts Name Relation Home Work Mobile Rowdy Hogue Sibling [phone] Ariella Ververoluis Other - (no specific identity) [phone] Margy Phillips Other - (no specific identity) [phone] Transition of Care Checklist Narrative: pt discussed in IDT rounds. Pt for a LP today to rule out MS. No d/c today Anticipated Transportation at Discharge: family Patient/Family Expectations: to get well and return home Transition Planning Additional Considerations: Care Management will continue to monitor and assist with discharge planning needs * Ancillary Progress Note - Kiara Sanchez RDN - 10/05/2023 2:00 PM EDT CLINICAL NUTRITION CONSULT/PROGRESS NOTE [facility]-[address] [address] Name: Chandrika Hogue Location: [facility] [id number]/W Date: 10/05/2023 Time: 2:00 PM How patient was identified (select 2): date and Name Discussed in interdisciplinary rounds: No Patricia Hogue is a 58 year old female being seen for parenteral nutrition and follow-up Primary Diagnosis: Failure to thrive in adult Other pertinent information: Patient continues to be followed by nutrition and weight management and pharmacy regarding TPN recommendations and adjustments. Patient has been fluid overloaded, therefore TPN volume has been decreased. Patient has been increasing her PO intakes when she is able, usually has good intake of at least 1 meal per day. Patient's weight has gone back down into the high 80 lbs range, likely related to fluids, will continue to monitor. NUTRITION ASSESSMENT: Past medical/surgical history and medications reviewed. Food/Nutrition-Related History Nutrition Support: TPN per Nutrition and Weight Management Diet: Regular Previously followed diet: Regular Food Allergies/Intolerances: NKFA Adult Energy Intake: Less than 75% of estimated energy requirement for greater than 1 month (moderate/severe, chronic illness). Percentage of meal intake: 0-90% Oral Nutrition Supplement (ONS): Boost Breeze (1 cup provides 250 calories, 9 grams protein, 54 grams carbohydrate) daily Pertinent medications/vitamins/minerals/supplements: Lasix Pertinent Biochemical Data: Labs reviewed. There are no biochemical abnormalities requiring a change in nutrition plan of care at this time. Nutrition-Focused Physical Findings: Appearance: Cachectic, Ill-appearing, and Thin Respiratory support: Supplemental O2 Delivery: Nasal Cannula Nasal/Oral: No issues identified Digestive: Appetite fair and malabsorption Last Bowel Movement: 10/01/23 (10/05/23 0804) Cognition: Awake, alert and Oriented Skin: Intact Enteral access: None Nutrition Focused Physical Exam: NFPE completed on 10/05/2023 Subcutaneous Fat Loss: Orbital fat pads: Severe Buccal fat: Severe Tricep: Severe Rib: Severe Muscle Loss: Temples: Severe Clavicles: Severe Shoulders: Severe Scapula: Severe Interosseous: Severe Quadriceps: Severe Calves: Severe Edema Location: Lower extremities;Both (10/04/23834) Edema Assessment: +1 - Description (10/04/23834) Anthropometrics Measurements Height: 149.9 cm (4' 11") (09/20/231248) Admission weight: 33.6 kg Weight: 39.7 kg (87 lb 9.6 oz) (10/05/23 06) BMI: 14.96 (09/20/231248) Usual Body Weight: 36.3 kg [place] weight: 41.5 kg [place] Weight Based on BMI: 18.5 Interpretation of Weight Change Prior to Admission: Greater than 5% weight loss in 1 month (Severe) Weight Changes Since Admission: wt had increased and is now back down, likely fluid related; pt is now +6.1 kg since admission Nutrition Prescription: Energy needs: 30-35 Kcal/kg Kcal/day: 7624-2047 Based on [place] weight Protein needs: 1.2-1.4 gm/kg Protein: 50-58 Based on [place] weight Fluid needs: 30 ml/kg Fluid: 1245 ml/day Based on [place] weight Malnutrition: Malnutrition Present: Yes (09/21/231018) Adult Malnutrition Classification: Severe (09/21/231018) Malnutrition Characteristics: Fat loss;Muscle loss;Inadequate energy intake;Weight loss (09/21/231018) Malnutrition Care Plan: Patient meets ASPEN/AND criteria for severe malnutrition. NUTRITION DIAGNOSIS: Malnutrition severe related to chronic illness as evidenced by patient consuming less than 75% of estimated energy requirements x 1 month, greater than 5% weight loss x 1 month, severe fat loss, and severe muscle loss. 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 Goals: Patient will tolerate TPN at lower fluid volume. Patient will continue to consume as much PO intake as feasible. Previous diagnosis/Goals: Patient did not maintain weight - however likely related to fluids Patient trying to consume as much PO as feasible. NUTRITION INTERVENTION/PLAN: Orders: Oral nutrition supplement added Super Mashed Potatoes with Gravy (1/2 cup plus 1 oz, 265 calories, 8 grams protein, 23 grams carbohydrate) BID Clinical Nutrition Recommendations: Diet: Continue current nutrition plan NUTRITION MONITORING AND EVALUATION: Nursing documentation flowsheets for percent meal intake Tolerance of supplement per patient/nursing report Parenteral nutrition intake for formula, rate, progress toward goal regimen Lab values warranting change with MNT Weight for trends Plan follow-up: Will follow and adjust nutrition plan of care as medical condition requires. Please contact for change(s) in patient condition requiring earlier intervention. Kiara Sanchez MS, RDN, LDN Clinical Dietitian [facility] Available via [place] Text [phone] * Communication - Susanne Regalado MD - 10/05/2023 1:05 PM EDT Nutrition Support Communication Note: - Reorder home TPN per [facility] note 09/07, 1.050L total volume, at goal macronutrients of 1370 Kcal, 60g amino acids, 200g dextrose, 45g lipids, thiamine 100 mg, octreotide 150 mcg, 7 days/week - Cycle to 18 hr today - Increase KPhos to 10 mmol - Add zinc 5 mg to TPN - BMP, mag and phos daily - Monitor I/Os, and daily weights - Continue PO vitamin D 50,000 units MWF, PO iron supplementation, vitamin E 400 units daily - Given one time B12 injection inpatient and continue qmonthly thereafter - Micronutrient labs ordered this admission: vitamin A, vitamin D, vitamin E, vitamin K, vitamin B1, folate, vitamin B12, MMA, copper, zinc, iron panel, ferritin - Recheck thiamine level today - Recheck vitamin D, vitamin B12, MMA, Homocysteine, zinc and vitamin E levels (around 11/23/23) - Discussed with TPN pharmacist Tj Park Case discussed with Dr. May. Please tigertext with any questions or concerns. Susanne Regalado MD Nutrition and Weight Management Associated attestation - Renetta May MD - 10/06/2023 3:55 PM EDT I did not see the patient, but I have reviewed patient's case with fellow. Discussed plan with fellow and agree, as noted below. Late entry for 10/05/23 * Ancillary Progress Note - Darian Romero, MOLD ENGRAVER - 10/04/2023 10:21 PM EDT Pt switched to intermediate cannula 9lpm for sat of 91%. Pt. States she doesn't want on bipap. * Communication - Kem Allison MD - 10/04/2023 3:11 PM EDT MRI T-spine: IMPRESSION: No obvious evidence of demyelinating disease involving the thoracic spinal cord, although evaluation is severely limited by motion degradation. If there is persistent concern for potential demyelinating disease, a repeat examination under sedation should be considered. Midthoracic dextroscoliosis and thoracolumbar levoscoliosis as described, associated with chronic multilevel vertebral body wedging and asymmetric disc space widening. Limited characterization of spondylitic changes at the individual disc levels. No evidence for severe thoracic spinal canal stenosis. Will follow LP * Ancillary Progress Note - Porsche Emanuel DATA COLLECTION TECHNICIAN - 10/04/2023 2:45 PM EDT PROGRESS NOTE - Physical Therapy [facility]-[address] [address] Name: Chandrika Hogue Location: [facility] [id number]/W Date: 10/04/2023 Time: 2:45 PM Chandrika Hogue is a/an 58 year old female. Patient Status: Inpatient Insurance: Payor: [facility] Plan: [facility] PREFERRED ENHANCED MP-DD Product Type: *No Product type* Patient Seen: at bedside, nursing cleared patient for therapy Patient Identified By: Name, ID Band and Date Diagnosis: FTT (10/04/23 4565) Status of treatment: Reassessment completed (10/04/231444) Orders: OOB (09/22/23 09) Weight Bearing Status: Weight bearing as tolerated (10/04/231444) Precautions: Alarms;Falls;Yin;Oxygen;Safety (10/03/23 1130) Total Treatment Time--free text: 70 minutes (10/04/231444) Subjective: "I think there are too many things going on to walk" Pain: Patient has complaints of pain. Pain located sacrum area with patient reporting 8/10 pain. RNalready aware. P.T. Bed Mobility Roll (Right): Independent (09/22/23899) Roll (Left): Independent (09/22/23899) Supine-Sit: Contact Guard (10/04/231444) Sit-Supine: Contact Guard (10/04/231444) Transfers Sit-Stand: Contact Guard (10/04/231444) Stand-Sit: Contact Guard (10/04/231444) W/C-Bed/Mat: Minimal Assistance (09/29/23 1215) Ambulation: Distance ambulated (feet): 250 ft Assistive Device: Rollator Assist: Contact Guard Balance Sit (Static): Good (10/04/231444) Sit (Dynamic): Fair (10/04/231444) Stand (Static): Fair (10/04/231444) Stand (Dynamic): Poor (10/04/231444) Patient and or Family Goal(s): to get well Topic of Education: Safety with mobility and Goals/plan of care Extremity Exercise Supine: Hip;Isometrics;Ankle (10/04/231444) Hip : Bilateral LE;Flexion;2 sets of 10 (10/04/231444) Ankle: Bilateral LE;Dorsiflexion;Plantar flexion;2 sets of 10 (10/04/231444) Isometrics: Bilateral LE;Glute sets;2 sets of 10 (10/04/231444) Method of Education: Verbal discussion and explanation provided to pt: verbalized understanding andor agreement of this information Treatment Provided: Therapeutic Activities 15 minutes: bed mobility training transfer training Gait Training 25 minutes: gait training with rollator Therapeutic Exercises: 30 minutes Alarm Status Patient positioned in: Bed (10/04/23 144) With: Bed alarm intact and functioning and call garcia in reach (10/04/23 144) Patient Education Review of Precautions: Safety;Fall (10/04/23 144) Review of Exercises: Pt Demonstrated Exercise;Verbal Exercises Provided (09/29/23 121) Review of Home Program: Yes (09/29/231214) Safety Awareness: Patient verbalizes insight of current deficits;Patient demonstrates carryover of insight during functional tasks (10/03/23 113) Preferred learning method: Combination (10/03/23 113) Barriers to learning: Psychological factors;Medical Status (09/22/23899) Method of Education: Verbalized to patient;Patient demonstrated task (09/22/23899) Assessment: patient initially declines mobility training despite education on benefits but is agreeable to BLE exercise. Supine BLE exercises completed as mentioned above in flow sheet to increase strength and facilitate improvement with functional mobility. Patient requires mod cues for proper technique, achieving full ROM, and exercise progression. Post exercise further encouragement and education is provided to patient on benefits of participating in mobility training and patient is then agreeable. Patient verbalizes feeling overwhelmed by equipment (yin, IV, O2 tank) as main reason for initially declining mobility. Patient is able to complete all bed mobility, transfers, and ambulation with CGA. Patient's gait is unsteady with NBOS, decreased stride length, and decreased gait speed but overall no LOB noted. Patient utilizes intermittent static standing rest breaks due to dizzinessand/or fatigue throughout mobility portion of session. Patient is on 5L of O2 via NC throughout session with O2 sat ranging from 89-94%. Overall, patient is unsafe to perform mobility without assistance. Deficits requiring P.T. treatment needs: Safety;Mobility;Balance;Weakness;Endurance;Lower extremitystrength (09/22/23899) Equipment needs: Rollator (10/03/231129) Plan: Continue with current treatment plan established on evaluation. AM PAC Score with Stairs: 17 * Ancillary Progress Note - Inge Corbett RN - 10/04/2023 1:40 PM EDT CARE MANAGEMENT - ADULT TRANSITION NOTE [facility] [address] Name: Chandrika Hogue Location: [facility] [id number]/W Date: 10/04/2023 Time: 1:41 PM Risk Stratification Risk Stratification Psycho Social / Medical Concerns Identified: Adjustment to illness/injury;Multiple Comorbidities;Chronic Kidney Disease (09/21/23 1411) Accessed Neighborly to connect patients to social care resources: No (09/21/231410) Readmission Risk Score: 30.59 (10/04/23 1200) AM-PAC Score With Stairs : 18 (10/04/23 0930) Caregiver Information Patient Contacts Name Relation Home Work Mobile Rowdy Hogue Sibling [phone] Ariella Acosta Other - (no specific identity) [phone] Margy Phillips Other - (no specific identity) [phone] Transition of Care Checklist Narrative: discussed in IDT rounds. Patient to [facility] done tomorrow. CM will follow Anticipated Transportation at Discharge: friend Patient/Family Expectations: home Transition Planning Additional Considerations: Care Management will continue to monitor and assist with discharge planning needs * Communication - Susanne Regalado MD - 10/04/2023 12:45 PM EDT Nutrition Support Communication Note: - Reorder home TPN per [facility] note 09/07, 1.050L total volume, at goal macronutrients of 1370 Kcal, 60g amino acids, 200g dextrose, 45g lipids, thiamine 250 mg, octreotide 150 mcg, 7 days/week - Cycle to 20 hr today - Add 5 mmol KPhos - 2 g IV Mag bolus ordered - Consider resuming zinc supplementation tomorrow as ROBINSON is improving - BMP, mag and phos daily - Monitor I/Os, and daily weights - Continue PO vitamin D 50,000 units MWF, PO iron supplementation, vitamin E 400 units daily - Given one time B12 injection inpatient and continue qmonthly thereafter - Micronutrient labs ordered this admission: vitamin A, vitamin D, vitamin E, vitamin K, vitamin B1, folate, vitamin B12, MMA, copper, zinc, iron panel, ferritin - Recheck vitamin D, vitamin B12, zinc and vitamin E levels (around 11/23/23) - Discussed with TPN pharmacist Tj Park Case discussed with Dr. Jalloh. Please tigertext with any questions or concerns. Susanne Regalado MD Nutrition and Weight Management * Care Plan - Adry Patel RN - 10/04/2023 5:53 AM EDT Clinical Goal(s): pt SpO2 will be >90% this shift (10/03/23 2200) Possible barriers to meeting goal(s)/advancing plan of care: need for supplemental O2 Stability of the patient: Moderately unstable - medium risk of patient condition declining or worsening Summary regarding today's goal(s): Met: pt SpO2 was >90% this shift Recommendations: continue plan of care * Diagnostic Clarification - Jess Carranza MD - 10/03/2023 5:37 PM EDT - Combination of acute non cardiac pulmonary edema due to fluid overload (TPN) as well as element of Acute pulmonary edema due to acute exacerbation of chronic diastolic HF * Ancillary Progress Note - Maureen Thompson COTA - 10/03/2023 3:32 PM EDT PROGRESS NOTE - Occupational Therapy [facility]-[address] [address] Name: Chandrika Hogue Location: [facility] [id number]-[id number]/W Date: 10/03/2023 Time: 1532 PM Chandrika Hogue is a 58 year old female. Patient Status: Inpatient Insurance: Payor: [facility] [employer] Plan: [facility] [employer] PREFERRED ENHANCED MP-DD Product Type: *No Product type* Patient Seen: at bedside, nursing cleared patient for therapy Patient Identified By: Name, ID Band and Date Diagnosis: decreased ADL and functional skills, decreased activity tolerance (10/03/231531) Status of treatment: Treatment completed (10/03/231531) Orders: OT evaluation and treatment (10/03/231531) Weight Bearing Status: Weight bearing as tolerated (10/03/231531) Precautions: Falls;Safety;Central line (10/03/231531) Total Treatment Time: 28 (10/03/231531) Subjective: "I can't live like this for the last 20 years of my life. I want to go out and have fun, if I can't do that there's no point." RETENTION REPRESENTATIVE aware. Pain: Patient has complaints of pain. Pain located in R shoulder. RETENTION REPRESENTATIVE aware. Observations Consciousness: Alert (10/03/231531) Orientation: Oriented times 4 (10/03/231531) Psychosocial: Patient can communicate basic needs;Patient can converse in a social setting (10/03/231531) Safety awareness: The Patient verbalizes insight of current deficits.;The Patient demonstrates carryover of insight during functional tasks.;The Patient can communicate basic needs. (10/03/231531) Other Findings Light touch sensation: LUE;RUE;Intact (per pt) (09/21/23825) Coordination: LUE;RUE;Intact (09/21/23825) Current Functional Status: Activities of Daily Living: Self Care Feeding: Supervision (Please comment) (setup) (09/21/23825) Toileting: Moderate Assistance (to manage after incontinence, per report. but pt reportedshe could have managed herself) (09/21/23825) Dressing Lower Body: Supervision (Please comment) (09/27/231517) Functional Ambulation Assistive Device: No device (09/27/231517) Distance in feet:: 2 (09/27/231517) Level of Assistance: Contact Guard (09/27/231517) Bed Mobility Supine-Sit: Modified Independent (09/27/231517) Sit-Supine: Supervision (Please comment) (09/27/231517) OT Transfers Sit-Stand: Contact Guard (09/27/231517) Stand-Sit: Contact Guard (09/27/231517) Patient Education Education Topic: Energy conservation (09/22/23919) Review of Precautions: Safety;Fall (09/22/23919) Method of Education: Verbalized to patient;Written information provided to patient (09/22/23919) Education Provided to: Patient (09/22/23919) Response to Education: Receptive and agreeable to education (09/22/23919) Barriers to learning: Medical status (09/22/23919) Preferred learning method: Combination (09/22/23919) Alarm Status Patient positioned in: Bed (10/03/231531) With: Bed alarm intact and functioning and call garcia in reach (10/03/231531) Treatment Provided: Therapeutic Procedure: 28 minutes Upper Extremity exercise Demonstrate Exercises: LUE;RUE;Shoulder;Elbow;Wrist;3 sets of 10;Flexion;Extension;Internal/external rotation;Shoulder shrugs;Scapular protraction/retraction;Supination/pronation (10/03/231531) Peformed in: Supine (10/03/231531) Deficits requiring O.T. treatment needs: ADL/self- care;Balance;Endurance;Functional mobility;Safety;Upper extremity strength;Weakness (09/21/23825) Assessment: Pt was agreeable to participating in treatment. OT AMPAC remained the same at 17. Pt declined ADLs or mobility at this time. While in supine she completed 3 sets of 10 of UE exercises including: shoulder shrugs, scapular protraction/retraction, IR/ER, forearm supination/pronation, and wrist flexion/extension. Pt completed these with fair-good tolerance. Exercises were completed to increase improvement with ADLs, functional mobility, ROM, and strength. Pt completed 3 levator scapularstrecht to attempt to ease R shoulder pain but it did not help. She was on 5L O2 via NC. She would desat to mid-high 80's with activity but only required a few seconds at rest to increase to >90%. HR in the 80's. Pt was left in supine with HOB elevated, call garcia in reach, bed alarm on, and bedside table to the R. Plan: Continue treatment as directed by the OT consult. Anticipated Frequency (on eval): 1 to 3 times per week (10/03/231531) Equipment Equipment used in Therapy: Hospital bed (10/03/231531) AM-PAC Help From Another Person Eating Meals: A little (10/03/231531) Help From Another Person Taking Care of Personal Grooming: A little (10/03/231531) Help From Another Person To Put On/Take Off Upper Body Clothing: A little (10/03/231531) Help From Another Person To Put On/Take Off Lower Body Clothing: A little (10/03/231531) Help From Another Person Toileting: A lot (10/03/231531) Help From Another Person Bathing: A little (10/03/231531) OT AM-PAC Score: 17 (10/03/231531) OT AM-PAC t-Scale Score: 37.26 (10/03/231531) HLM (Highest Level of Mobility) Goal: Level 5 standing (1 or more minutes) (10/03/23 1130) * Ancillary Progress Note - Inge Corbett RN - 10/03/2023 12:45 PM EDT CARE MANAGEMENT - ADULT TRANSITION NOTE [facility]-[address] [address] Name: Chandrika Hogue Location: [facility] 5A-[id number]/W Date: 10/03/2023 Time: 12:46 PM Risk Stratification Risk Stratification Psycho Social / Medical Concerns Identified: Adjustment to illness/injury;Multiple Comorbidities;Chronic Kidney Disease (09/21/23 1411) Accessed Neighborly to connect patients to social care resources: No (09/21/23 141) Readmission Risk Score: 27.58 (10/03/23 1201) AM-PAC Score With Stairs : 18 (10/03/23 0800) Caregiver Information Patient Contacts Name Relation Home Work Mobile Rowdy Hogue Sibling [phone] Ariella Acosta Other - (no specific identity) [phone] Margy Phillips Other - (no specific identity) [phone] Transition of Care Checklist Narrative: No discharge today. Patient planned for [facility] . CM will follow. Anticipated Transportation at Discharge: friend Patient/Family Expectations: home Transition Planning Additional Considerations: Care Management will continue to monitor and assist with discharge planning needs * Ancillary Progress Note - Carmela Nice, PT - 10/03/2023 11:30 AM EDT PROGRESS NOTE - Physical Therapy [facility]-[address] [address] Name: Chandrika Hogue Location: [facility] 5A-5105/W Date: 10/03/2023 Time: 11:30 AM Chandrika Hogue is a/an 58 year old female. Patient Status: Inpatient Insurance: Payor: [facility] [employer] Plan: [place] MOY PREFERRED ENHANCED MP-DD Product Type: *No Product type* Patient Seen: at bedside, nursing cleared patient for therapy Patient Identified By: Name, ID Band and Date Diagnosis: FTT (09/25/23 1515) Status of treatment: Treatment completed (10/03/23 113) Orders: OOB (09/22/23 0900) Weight Bearing Status: Weight bearing as tolerated (10/03/23 113) Precautions: Alarms;Falls;Yin;Oxygen;Safety (10/03/23 113) Total Treatment Time--free text: 60 minutes (10/03/23 113) Subjective: Pt agreeable to PT treatment session Pain: Patient has complaints of pain. Pain located right low back, flank and shoulder. "11"/10. Nursing aware. P.T. Bed Mobility Supine-Sit: Minimal Assistance (10/03/23 113) Sit-Supine: Supervision (10/03/23 113) Transfers Sit-Stand: Contact Guard (10/03/23 113) Stand-Sit: Contact Guard (10/03/231129) Ambulation: Distance ambulated (feet): 150 ft x 3 with seated rest between gait bouts Assistive Device: Rollator Assist: Contact Guard to stand by assist Balance Sit (Static): Good (10/03/231129) Sit (Dynamic): Good (10/03/231129) Stand (Static): Fair (10/03/231129) Stand (Dynamic): Poor (10/03/231129) Patient and or Family Goal(s): to get well Topic of Education: Safety with mobility and Fall prevention Method of Education: Verbal discussion and explanation provided to patient: verbalized understanding and or agreement of this information Treatment Provided: Therapeutic Activities 20 minutes: bed mobility training transfer training toilet transfer training Gait Training 40 minutes: gait training with 4-wheel walker Alarm Status Patient positioned in: Bed (10/03/231129) With: Bed alarm intact and functioning and call garcia in reach (10/03/231129) Patient Education Review of Precautions: Safety;Fall (10/03/231129) Review of Exercises: Pt Demonstrated Exercise;Verbal Exercises Provided (09/29/231214) Review of Home Program: Yes (09/29/231214) Safety Awareness: Patient verbalizes insight of current deficits;Patient demonstrates carryover of insight during functional tasks (10/03/231129) Preferred learning method: Combination (10/03/231129) Barriers to learning: Psychological factors;Medical Status (09/22/23899) Method of Education: Verbalized to patient;Patient demonstrated task (09/22/23899) Assessment: Chandrika Hogue was able to sit up, stand and ambulate 150 ft x 3 with rollator and up to minimal assistance. SpO2 89% and above on 5 LPM O2 via NC with activity. [facility] mobility score of 17. Will continue to follow. Deficits requiring P.T. treatment needs: Safety;Mobility;Balance;Weakness;Endurance;Lower extremitystrength (09/22/23899) Equipment needs: Rollator (10/03/231129) Plan: Continue with current treatment plan established on evaluation. AM PAC Score with Stairs: 17 * Communication - Susanne Regalado MD - 10/03/2023 11:12 AM EDT Nutrition Support Communication Note: - Reorder home TPN per [facility] note 09/07, 1.2L total volume, at goal macronutrients of 1370 Kcal, 60g amino acids, 200g dextrose, 45g lipids, thiamine 250 mg, octreotide 150 mcg, 7 days/week, cycled over 24 hours - TPN was held overnight due to concern for volume overload and resumed this AM - Hold zinc supplementation at this time in the setting of ATN from persistent hypotension - Recheck BMP, mag and phos this evening and replete electrolytes as needed - Monitor I/Os, and daily weights - Continue PO vitamin D 50,000 units MWF, PO iron supplementation, vitamin E 400 units daily - Given one time B12 injection inpatient and continue qmonthly thereafter - Micronutrient labs ordered this admission: vitamin A, vitamin D, vitamin E, vitamin K, vitamin B1, folate, vitamin B12, MMA, copper, zinc, iron panel, ferritin - Recheck vitamin D, vitamin B12, zinc and vitamin E levels (around 11/23/23) - Discussed with TPN pharmacist Tj Park Case discussed with Dr. Liang. Please tigertext with any questions or concerns. Susanne Regalado MD Nutrition and Weight Management Associated attestation - Liane Liang MD - 10/03/2023 6:08 PM EDT I have discussed the patient's management with the medical trainee and agree with the note. Please refer to the documented findings and plan of care. This patient's visit today consisted of a service. I have reviewed the medical history, diagnosis, and plan, as performed by the trainee. Liane Liang MD * Care Plan - Nathalie Short RN - 10/03/2023 5:00 AM EDT Clinical Goal(s): Pt will maintain SpO2 at least 90% during this shift (10/02/231947) Possible barriers to meeting goal(s)/advancing plan of care: Stress, pain, comorbidities Stability of the patient: Moderately unstable - medium risk of patient condition declining or worsening Summary regarding today's goal(s): Met: Pt maintained SpO2 at least 90% during this shift Recommendations: Continue to implement stress reduction strategies and monitor pain level, providing appropriate interventions as needed. Follow plan of care. * Progress Notes - Non-Billable - Lida Tillman PA-C - 10/02/2023 8:59 PM EDT Brief CCM Note Patient seen by CCM on 10/01/23 due to concerns for respiratory failure. She had an episode of desaturation and lethargy today after receiving PO ativan for MRI and has also had episodes of hypoglycemia as low as 30 following 20u subq Novolog for BG of 438. She was placed on BiPAP and ABG obtained 7.3 35/40.6/62.9/21.1. Dr. Huizar contacted but was performing procedures on another patient and so Dr. Taylor was contacted by primary team. Per Dr. Palma, Dr. Taylor recommended to hold TPN and given 20mg lasix. Upon my evaluation she is awake and alert. She has made 1.4L of clear yellow urine after lasix. She is able to speak in complete sentences and says "I'm not taking anymore damn medication". Wants BiPAP off, she does not like wearing it and when she has it on she says too many people are in her room waking her up to check on the BiPAP. Can try nasal cannula. Suspect this is event was multifactorial from volume overload from TPN, respiratory depression from ativan and also some component of hypog lycemia. Patient doing well with current interventions. If continuous infusion of dextrose needed due to hypoglycemia, can start D10 to reduce volume of infusion. Patient is DNR/DNI, she remains HD stable, she does not require transfer to the ICU at this time. Please call CCM with concerns/questions. Lida Tillman PA-C * Care Plan - Radha Mendieta RN - 10/02/2023 7:47 PM EDT Clinical Goal(s): Pt will maintain SpO2 > 90% this shift (10/02/23 0930) Possible barriers to meeting goal(s)/advancing plan of care: SpO2 in the 80s overnight Stability of the patient: Moderately stable - low risk of patient condition declining or worsening Summary regarding today's goal(s): Met: Pt maintained SpO2 of 90% or greater this shift Recommendations: continue to monitor SpO2, encourage pt to keep bipap on * Communication - Jess Carranza MD - 10/02/2023 5:50 PM EDT Called by nursing to see patient due to abnormal breathing pattern and lethargy. I informed nursing she had ativan 0.5 for MRI- they confirmed this was administered. Nurse got glucose and level was 30. Amp D50 given, recheck 160's. On my arrival she is breathing very deeply and asleep. She awoke to me calling her name. She states she DOES NOT want bipap. CXR obtained- per my read on PACS worsening airspace opacities but NO PLEURAL EFFUSIONS. Of note- patient given 20mg IV lasix and is net negative today 2.8L BP is soft. At 90/55 Intake/Output Summary (Last 24 hours) at 10/02/2023 1753 Last data filed at 10/02/2023 1420 Gross per 24 hour Intake 1335.73 ml Output 4200 ml Net -2864.27 ml Immediate plan - CXR as above - ABG- discussed with respiratory therapy - End Tidal c02 - tele with oxygen monitoring - q1 hour blood sugars x3 hours - Critical care nurse to evaluate - ICU consult placed- Dr. Huizar in a procedure per SOFTWARE CLIENT ARCHITECT- he may not be able to see patient tonight as his shift ends at 7pm. Reached out to Dr. Taylor ICU and reviewed the case. - he recommends holding TPN overnight - giving IV lasix 20mg IV - patient is a no code - Discussed following with charge nurse. IF HYPOTENSIVE IF ABNORMAL BREATHING OVERNIGHT LOW THRESHOLD TO TRANSFER TO ICU * Ancillary Progress Note - Maureen Thompson COTA - 10/02/2023 3:40 PM EDT Per RN pt is on hold today (10/02/2023) from OT/PT services due to medical status. Treatment will be attempted at a later time or date dependent on schedule, pt tolerance, and pt medical status. * Ancillary Progress Note - Inge Corbett RN - 10/02/2023 1:11 PM EDT CARE MANAGEMENT - ADULT TRANSITION NOTE [facility]-[address] [address] Name: Chandrika Hogue Location: [facility] 5A-[id number]/W Date: 10/02/2023 Time: 1:11 PM Risk Stratification Risk Stratification Psycho Social / Medical Concerns Identified: Adjustment to illness/injury;Multiple Comorbidities;Chronic Kidney Disease (09/21/23 1411) Accessed [facility] to connect patients to social care resources: No (09/21/23 1411) Readmission Risk Score: 24.12 (10/02/23 1201) AM-PAC Score With Stairs : 18 (10/02/23 0930) Caregiver Information Patient Contacts Name Relation Home Work Mobile Rowdy Hogue [phone] Ariella Acosta Other - (no specific identity) [phone] Margy Phillips Other - (no specific identity) [phone] Transition of Care Checklist Narrative: No discharge today. CM will follow Anticipated Transportation at Discharge: friend Patient/Family Expectations: home with resumption of services Transition Planning Additional Considerations: Care Management will continue to monitor and assist with discharge planning needs * Communication - Susanne Regalado MD - 10/02/2023 9:31 AM EDT Nutrition Support Communication Note: - Reorder home TPN per [facility] note 09/07, 1.2L total volume, at goal macronutrients of 1370 Kcal, 60g amino acids, 200g dextrose, 45g lipids, thiamine 250 mg, octreotide 150 mcg, 7 days/week, cycled over 16 hours - Uncycle TPN to run over 24 hours - Increase K acetate to 40 - Hold zinc supplementation at this time in the setting of ATN from persistent hypotension - BMP, mag and phos daily, monitor I/Os, and daily weights - Continue PO vitamin D 50,000 units MWF, PO iron supplementation, vitamin E 400 units daily - Given one time B12 injection inpatient and continue qmonthly thereafter - Micronutrient labs ordered this admission: vitamin A, vitamin D, vitamin E, vitamin K, vitamin B1, folate, vitamin B12, MMA, copper, zinc, iron panel, ferritin - Recheck vitamin D, vitamin B12, zinc and vitamin E levels (around 11/23/23) - Discussed with TPN pharmacist [place] Case discussed with Dr. Wilkerson. Please tigertext with any questions or concerns. Susanne Regalado MD Nutrition and Weight Management * Care Plan - Nathalie Short RN - 10/02/2023 5:05 AM EDT Clinical Goal(s): Pt will maintain SpO2 > 90% during this shift (10/01/232007) Possible barriers to meeting goal(s)/advancing plan of care: Admitting diagnosis, comorbidities Stability of the patient: Moderately unstable - medium risk of patient condition declining or worsening Summary regarding today's goal(s): Not Met: Pt did not maintain SpO2 > 90% during this shift and had to be put on bipap Recommendations: Continue to monitor oxygen level and provide appropriate interventions when needed. Follow plan of care. * Communication - Adiel Toussaint MD - 10/01/2023 11:44 PM EDT Patient continues to become more dyspneic and her o2 requirements have increased. Currently on 6L o2 and her saturation is at 88 percent. On exam respiratory rate in 30's but patient able to speak Lungs without wheezing or crackles on auscultation; given breathing treatment prior to my arrival CXR shows worsening of ards picture. Brennan from ICU also stopped by to look at patient Plan: trial of bipap; if worsening, will need to transfer to ICU. * Care Plan - Alissa Woody, RN - 10/01/2023 5:23 PM EDT Clinical Goal(s): Patient will remain free from falls this shift. (10/01/23 0723) Possible barriers to meeting goal(s)/advancing plan of care: weakness, hypoxia Stability of the patient: Moderately stable - low risk of patient condition declining or worsening Summary regarding today's goal(s): Met: Patient remained free from falls this shift. Recommendations: Maintain fall precautions when patient is out of bed. Assess for hypoxia and treatas indicated. Evaluate for intervention effectiveness. * Ancillary Progress Note - Jose Hancock Chaplain - 10/01/2023 3:22 PM EDT PROGRESS NOTE - Spiritual Care Contact Information [facility]-[address] [address] Name: Chandrika Hogue Location: [facility] 5A-5105/W Date: 10/01/2023 Time: 3:59 PM Presybeterian: Quaker [10] Confucianism Affiliations: REASON FOR VISIT: request REQUEST RECEIVED FROM: patient VISIT LENGTH: 30 REQUEST FACTORS (Nature of Situation): Initial Visit and Request for: Prayer and [employer] support FOCUS OF CARE: Patient SPIRITUAL ASSESSMENT: Smita or Belief System: Faith Most Important Need(s) / Concern(s): Helpless, Suffering, and Weary Sense of Community and/or Confucianism Affiliation: Not closely affiliated Addresses need(s)/concerns(s) and/or radha through: God/Higher Power SPIRITUAL CARE PROVIDED: [employer] addressed needs/concerns and/or coping through: Belden, Facilitating sharing/expression,Listening presence, Prayer, Scripture reading, and Supportive dialogue REFERRAL TO: N/A OUTCOMES: Affirmation, Comfort/Healing Presence, Emotional Release, Identifying Patient's Strengths/Source of Hope, Identifying Spiritual/Emotional Issues, Personal Disclosure/Revelation ANNOTATION: Patient shared about her sung and life. Pt expresses some concerns about unknown. Pt stated fish cake maker saw her around [facility]. I provided active listening and supportive presence. Wetalked about some comforting Psalms from Scripture, and pt connected with my reading of them. Pt welcomed prayer so I prayed with pt for all her needs and concerns. Pt was grateful for visit. I encouraged pt to have me contacted with any needs. * Care Plan - Nathalie Short RN - 10/01/2023 5:25 AM EDT Clinical Goal(s): Pt will sleep for at least 4 hours during this shift (09/30/231953) Possible barriers to meeting goal(s)/advancing plan of care: Stress, pain, admitting diagnosis Stability of the patient: Moderately stable - low risk of patient condition declining or worsening Summary regarding today's goal(s): Met: Pt slept for at least 4 hours during this shift Recommendations: Continue to implement stress reduction strategies and monitor pain level, providing appropriate interventions as needed. Follow plan of care. * Communication - Benny Agee MD - 10/01/2023 5:16 AM EDT 11:42 p.m.: I was informed patient SpO2 was 84% by nurse and that patient was placed on 4 L nasal cannula and subsequently patient's SpO2 improved to 91% on 4 L nasal cannula. I was also inform patient has sharp shooting pains from her sacrum up to her upper back I ordered EKG troponin chest x-ray and RVP Also ordered a 1 time Tylenol for pain control as patient had already got the tramadol EKG did not show any new changes Patient was subsequently saturating well and over 90% X-ray report back and shows multifocal parenchymal consolidation increased compared to previous indicating possible early ARDS versus multifocal pneumonia RVP negative Troponin and BNP at baseline Patient started on antibiotics cefepime On examination Patient appeared anxious Lungs clear with mild crackles at base On 4 L nasal cannula Abdominal exam normal Continue antibiotics Hemoglobin dropped to 7.6 Will transfuse 1 unit of blood considering new hypoxia Consent obtained Benny Agee MD * Communication - Adiel Toussaint MD - 10/01/2023 4:33 AM EDT Patient noted to be dyspneic and hypoxic this morning. She was placed on supplemental o2 and sat improved from 80's to high 90's. When I came to see patient, she was not short of breath and was sleeping. She denied chest pain, cough, or fevers. On exam: Thin middle aged woman resting comfortably in bed. Pulm: no wheezing, mild tachypnea. Decreased bs in bases Cv: tachy Abd: soft not tender Ext: no edema Yin in place, draining clear urine CXR: read as possible ARDS by radiologist. I reviewed cxr as well. It's possible that we are seeingeffusions as she is laying flat. IMP: acute respiratory failure. Cause unclear at this moment. -will check blood cultures. Empiric broad spectrum abx ordered -pulm consult placed/ I spoke with ICU provider to also see patient. Addendum: repeated CXR with patient upright. Still seeing bilateral haziness throughout lungs; doubt effusions as explanation. * Care Plan - Alissa Woody RN - 09/30/2023 5:40 PM EDT Clinical Goal(s): Patient will remain free from falls this shift. (09/30/23 0895) Possible barriers to meeting goal(s)/advancing plan of care: weakness, new catheter Stability of the patient: Moderately stable - low risk of patient condition declining or worsening Summary regarding today's goal(s): Met: Patient remained free from falls this shift. Recommendations: Assess patient for pain/ discomfort. Treat as directed. Maintain fall precautions when out of bed and encourage patient to use assistive devices. * Ancillary Progress Note - Kiara Sanchez RDN - 09/30/2023 9:04 AM EDT CLINICAL NUTRITION CONSULT/PROGRESS NOTE [facility]-[address] [address] Name: Chandrika Hogue Location: [facility] 5A-5105/W Date: 09/30/2023 Time: 9:04 AM How patient was identified (select 2): date and Name Discussed in interdisciplinary rounds: Linda Patricia Hogue is a 58 year old female being seen for parenteral nutrition and follow-up Primary Diagnosis: Failure to thrive in adult Other pertinent information: Patient continues to be followed by nutrition and weight management and pharmacy regarding TPN recommendations and adjustments. Patient has been tolerating TPN regimen and weight has increased. Patient also doing well with most meals, consuming about 50% and drinking her boost breeze when she feels up to it. Continue current nutrition plan of care. NUTRITION ASSESSMENT: Past medical/surgical history and medications reviewed. Food/Nutrition-Related History Nutrition Support: TPN per Nutrition and Weight Management Diet: Regular Previously followed diet: Regular Food Allergies/Intolerances: NKFA Adult Energy Intake: Less than 75% of estimated energy requirement for greater than 1 month (moderate/severe, chronic illness). Percentage of meal intake: 50-75% Oral Nutrition Supplement (ONS): Boost Breeze (1 cup provides 250 calories, 9 grams protein, 54 grams carbohydrate) TID Pertinent medications/vitamins/minerals/supplements: Iron, remeron, phenergan, vitamin c, vitamin e Pertinent Biochemical Data: Labs reviewed. There are no biochemical abnormalities requiring a change in nutrition plan of care at this time. Nutrition-Focused Physical Findings: Appearance: Cachectic and Thin Respiratory support: Supplemental O2 Delivery: Room Air, None Nasal/Oral: No issues identified Digestive: Appetite good Last Bowel Movement: 09/29/23 (09/30/23 0842) Cognition: Awake, alert and Oriented Skin: Intact Enteral access: None Nutrition Focused Physical Exam: NFPE completed on 09/21/2023 Subcutaneous Fat Loss: Orbital fat pads: Severe Buccal fat: Severe Tricep: Severe Rib: Severe Muscle Loss: Temples: Severe Clavicles: Severe Shoulders: Severe Scapula: Severe Interosseous: Severe Quadriceps: Severe Calves: Severe Anthropometrics Measurements Height: 149.9 cm (4' 11") (09/20/23 1249) Admission weight: 33.6 kg Weight: 45.3 kg (99 lb 12.8 oz) (09/30/23 0559) BMI: 14.96 (09/20/23 1249) Usual Body Weight: 36.3 kg [place] weight: 41.5 kg [place] Weight Based on BMI: 18.5 Interpretation of Weight Change Prior to Admission: Greater than 5% weight loss in 1 month (Severe) Weight Changes Since Admission: +11.7 kg (25.74 lbs) Nutrition Prescription: Energy needs: 30-35 Kcal/kg Kcal/day: 5995-6251 Based on current weight Protein needs: 1.2-1.4 gm/kg Protein: 54-63 Based on current weight Fluid needs: 30 ml/kg Fluid: 1360 ml/day Based on current weight Malnutrition: Malnutrition Present: Yes (09/21/23 101) Adult Malnutrition Classification: Severe (09/21/231018) Malnutrition Characteristics: Fat loss;Muscle loss;Inadequate energy intake;Weight loss (09/21/23 101) NUTRITION DIAGNOSIS: Malnutrition severe related to chronic illness as evidenced by patient consuming less than 75% of estimated energy requirements x 1 month, greater than 5% weight loss x 1 month, severe fat loss, and severe muscle loss. 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 Goals: Patient will continue to tolerating TPN at goal rate. Patient will continue to consume as much PO intake as feasible. Patient will maintain weight gain. Previous diagnosis/Goals: Patient meeting goals at this time. NUTRITION INTERVENTION/PLAN: Orders: Oral nutrition supplement continued Boost Breeze (1 cup provides 250 calories, 9 grams protein, 54 grams carbohydrate) daily Clinical Nutrition Recommendations: Diet: Continue current nutrition plan Parenteral Nutrition: PPN - per Nutrition and Weight Management NUTRITION MONITORING AND EVALUATION: Nursing documentation flowsheets for percent meal intake Tolerance of supplement per patient/nursing report Parenteral nutrition intake for formula, rate, progress toward goal regimen Weight for trends Plan follow-up: Will follow and adjust nutrition plan of care as medical condition requires. Please contact for change(s) in patient condition requiring earlier intervention. Kiara Sanchez, MS, RDN, LDN Clinical Dietitian [facility] Available via [place] Text [phone] * Care Plan - Nathalie Short RN - 09/30/2023 5:00 AM EDT Clinical Goal(s): Pt will have adequate pain relief during this shift (09/29/232002) Possible barriers to meeting goal(s)/advancing plan of care: Stress, comorbidities Stability of the patient: Moderately stable - low risk of patient condition declining or worsening Summary regarding today's goal(s): Met: Pt had adequate pain control during this shift Recommendations: Continue to monitor pain level, providing appropriate interventions as needed. Implement stress reduction protocols and follow plan of care. * Care Plan - Peter Ramos RN - 09/29/2023 6:26 PM EDT Clinical Goal(s): Pt will not fall this shift. (09/29/23 0750) Possible barriers to meeting goal(s)/advancing plan of care: Admitting dx Stability of the patient: Moderately stable - low risk of patient condition declining or worsening Summary regarding today's goal(s): Met: Pt did not fall this shift. Recommendations: Continue plan of care. * Ancillary Progress Note - Aaron Giron PTA - 09/29/2023 12:15 PM EDT PROGRESS NOTE - Physical Therapy [facility]-[address] [address] Name: Chandrika Grider Mykel Location: [facility] 5A-5105/W Date: 09/29/2023 Time: 5 Chandrika Hogue is a/an 58 year old female. Patient Status: Inpatient Insurance: Payor: [facility] Plan: Clemente MOY PREFERRED ENHANCED MP-DD Product Type: *No Product type* Patient Seen: at bedside, nursing cleared patient for therapy Patient Identified By: Name, ID Band and Date Diagnosis: FTT (09/25/231514) Status of treatment: Treatment completed (09/29/231214) Orders: OOB (09/22/23899) Weight Bearing Status: Weight bearing as tolerated (09/29/231214) Precautions: Safety;Falls (09/29/231214) Total Treatment Time--free text: 38 mins (09/29/231214) Subjective: "Im feeling worse today. I'm not going home today" Pain: Patient has complaints of pain. Pain located back 5/10 P.T. Bed Mobility Roll (Right): Independent (09/22/23899) Roll (Left): Independent (09/22/23899) Supine-Sit: Modified Independent (09/29/231214) Sit-Supine: Modified Independent (09/29/231214) Transfers Sit-Stand: Supervision (09/29/231214) Stand-Sit: Supervision (09/29/231214) W/C-Bed/Mat: Minimal Assistance (09/29/231214) Ambulation: Distance ambulated (feet): 200 ft, 250 ft Assistive Device: Straight cane Assist: Minimal Assistance Balance Sit (Static): Good (09/25/231514) Sit (Dynamic): Good (09/25/231514) Stand (Static): Fair (09/25/231514) Stand (Dynamic): Poor (09/25/231514) Patient and or Family Goal(s): to get well and to return home Topic of Education: Safety with mobility, Use of assistive device, and Fall prevention Method of Education: Demonstrated the above task to pt: verbalized understanding and or agreement of this information and demonstrated the exercise and or task Treatment Provided: Therapeutic Activities 8 minutes: bed mobility training transfer training Gait Training 20 minutes: gait training with cane Therapeutic Exercises: 10 minutes Alarm Status Patient positioned in: Bed (09/29/231214) With: Call garcia in reach (09/29/231214) Patient Education Review of Precautions: Safety;Fall (09/29/231214) Review of Exercises: Pt Demonstrated Exercise;Verbal Exercises Provided (09/29/231214) Review of Home Program: Yes (09/29/231214) Safety Awareness: Patient verbalizes insight of current deficits;Patient demonstrates carryover of insight during functional tasks;Patient can communicate basic needs (09/28/23 1430) Preferred learning method: Combination (09/22/23899) Barriers to learning: Psychological factors;Medical Status (09/22/23899) Method of Education: Verbalized to patient;Patient demonstrated task (09/22/23899) Assessment: Pt tolerated tx fair with no reported increased pain or SOB post tx session. Pt did report feeling fatigued post tx session. Pt performed supine exercises in the bed to increase strength and ROM to improve functional mobility. Pt then ambulated 2 bouts with a seated rest breaks between.Pt required Min A for trunk support and VC's for SPC placement. Pt required Min A for LOB. Pt has large lateral trunk sway while ambulating and NBOS. Pt is unsteady and unsafe to transfer or ambulatewithout assistance. Pt returned to lying supine in bed with HOB elevated to comfort. No needs post tx session. Pt instructed to not get up without assistance. Deficits requiring P.T. treatment needs: Safety;Mobility;Balance;Weakness;Endurance;Lower extremitystrength (09/22/23899) Plan: Continue with current treatment plan established on evaluation. AM PAC Score with Stairs: 18 * Ancillary Progress Note - Inge Corbett RN - 09/29/2023 10:00 AM EDT CARE MANAGEMENT - ADULT TRANSITION NOTE [facility]-[address] [address] Name: Chandrika Hogue Location: [facility] 5A-5105/W Date: 09/29/2023 Time: 8:07 PM Risk Stratification Risk Stratification Psycho Social / Medical Concerns Identified: Adjustment to illness/injury;Multiple Comorbidities;Chronic Kidney Disease (09/21/23 1411) Accessed [facility] to connect patients to social care resources: No (09/21/23 141) Readmission Risk Score: 22.67 (09/29/231999) AM-PAC Score With Stairs : 18 (09/29/232002) Caregiver Information Patient Contacts Name Relation Home Work Mobile Rowdy Hogue Sibling [phone] Ariella Acosta Other - (no specific identity) [phone] Margy Phillips Other - (no specific identity) [phone] Transition of Care Checklist Narrative: contacted Porsche Rutherford at [facility] via TT. Verified TPN order received for home delivery. met with patient at bedside to discuss discharge planning. Patient states IS already called her about delivery. States told [facility] she didn't want delivery until Monday. Called [place] office with CM in room to schedule line care and labs. Anticipated Transportation at Discharge: friend Patient/Family Expectations: home Transition Planning Additional Considerations: Care Management will continue to monitor and assist with discharge planning needs * Communication - Susanne Regalado MD - 09/29/2023 9:49 AM EDT Nutrition Support Communication Note: - Reorder home TPN per [facility] note 09/07, 1.5L total volume, at goal macronutrients of 1370 Kcal, 60g amino acids, 200g dextrose, 45g lipids, zinc 5 mg, octreotide 150 mcg, 7 days/week, cycled over 12 hours - Decrease K acetate due to elevated creatinine and recommend Nephro consult - Recommend to start vitamin E 400 units daily - Recommend to continue fluid boluses with Na bicarb to address low CO2 as Na acetate on backorder. - BMP, mag and phos daily - Continue PO vitamin D 50,000 units MWF, PO iron supplementation - Given one time B12 injection inpatient and continue qmonthly thereafter - Micronutrient labs ordered this admission: vitamin A, vitamin D, vitamin E, vitamin K, vitamin B1, folate, vitamin B12, MMA, copper, zinc, iron panel, ferritin - Recheck vitamin D, vitamin B12, zinc and vitamin E levels (around 11/23/23) - Discussed with hospitalist and TPN pharmacist Daisy Fajardo. Case discussed with Dr. Jalloh. Please tigertext with any questions or concerns. Susanne Regalado MD Nutrition and Weight Management * Care Plan - Carlotta Wilkinson RN - 09/29/2023 5:21 AM EDT Clinical Goal(s): Pt will remain free from falls or injuries this shift (09/28/23 1924) Possible barriers to meeting goal(s)/advancing plan of care: admitting diagnosis and hospital environment Stability of the patient: Moderately stable - low risk of patient condition declining or worsening Summary regarding today's goal(s): Met: Pt had no falls or injuries this shift Recommendations: continue with plan of care * Care Plan - Kimberli Shrestha RN - 09/28/2023 6:10 PM EDT Clinical Goal(s): Pt will be free of injury during shift (09/28/23 1500) Possible barriers to meeting goal(s)/advancing plan of care: Admitting diagnosis Stability of the patient: Moderately stable - low risk of patient condition declining or worsening Summary regarding today's goal(s): Met: Pt was free of injury during shift Recommendations: Continue plan of care. * Ancillary Progress Note - Aaron Giron PTA - 09/28/2023 2:30 PM EDT PROGRESS NOTE - Physical Therapy [facility]-[address] [address] Name: Chandrika Hogue Location: [facility] [id number]/W Date: 09/28/2023 Time: 1430 Chandrika Hogue is a/an 58 year old female. Patient Status: Inpatient Insurance: Payor: Clemente MOY Plan: Clemente MOY PREFERRED ENHANCED MP-DD Product Type: *No Product type* Patient Seen: at bedside, nursing cleared patient for therapy Patient Identified By: Name, ID Band and Date Diagnosis: FTT (09/25/231514) Status of treatment: Treatment completed (09/28/231429) Orders: OOB (09/22/23899) Weight Bearing Status: Weight bearing as tolerated (09/28/231429) Precautions: Falls;Safety (09/28/231429) Total Treatment Time--free text: 40 mins (09/28/231429) Subjective: "I was wondering if you were showing up" Pain: Patient has complaints of pain. Pain located back 5/10 P.T. Bed Mobility Roll (Right): Independent (09/22/23899) Roll (Left): Independent (09/22/23899) Supine-Sit: Modified Independent (09/28/231429) Sit-Supine: Modified Independent (09/28/231429) Transfers Sit-Stand: Supervision (09/28/231429) Stand-Sit: Supervision (09/28/231429) W/C-Bed/Mat: Minimal Assistance (09/28/231429) Ambulation: Distance ambulated (feet): 200 ft, 250 ft Assistive Device: Straight cane Assist: Minimal Assistance Balance Sit (Static): Good (09/25/231514) Sit (Dynamic): Good (09/25/231514) Stand (Static): Fair (09/25/231514) Stand (Dynamic): Poor (09/25/231514) Patient and or Family Goal(s): to get well and to return home Topic of Education: Safety with mobility, Use of assistive device, and Fall prevention Method of Education: Demonstrated the above task to pt: verbalized understanding and or agreement of this information and demonstrated the exercise and or task Treatment Provided: Therapeutic Activities 10 minutes: bed mobility training transfer training Gait Training 15 minutes: gait training with cane Therapeutic Exercises: 15 minutes Alarm Status Patient positioned in: Bed (09/28/231429) With: Call garcia in reach (09/28/231429) Patient Education Review of Precautions: Safety;Fall (09/28/231429) Review of Exercises: Pt Demonstrated Exercise;Verbal Exercises Provided (09/27/23929) Review of Home Program: Yes (09/28/231429) Safety Awareness: Patient verbalizes insight of current deficits;Patient demonstrates carryover of insight during functional tasks;Patient can communicate basic needs (09/28/231429) Preferred learning method: Combination (09/22/23899) Barriers to learning: Psychological factors;Medical Status (09/22/23899) Method of Education: Verbalized to patient;Patient demonstrated task (09/22/23899) Assessment: Pt tolerated tx fair with no reported increased pain or SOB post tx session. Pt was given manual trunk support and VC's for SPC. Pt displayed many LOB and required Min A to correct. Pt ambulated 2 bouts with a seated rest break in between. Pt is unsteady and unsafe to transfer w/o assistance. Pt returned to bed and performed TE. Pt performed supine exercises in the bed to increase strength and ROM to improve functional mobility. Deficits requiring P.T. treatment needs: Safety;Mobility;Balance;Weakness;Endurance;Lower extremitystrength (09/22/23899) Plan: Continue with current treatment plan established on evaluation. AM PAC Score with Stairs: 18 * Ancillary Progress Note - Inge Corbett RN - 09/28/2023 2:17 PM EDT CARE MANAGEMENT - ADULT TRANSITION NOTE [facility]-[address] [address] Name: Chandrika Hogue Location: [facility] [id number]/W Date: 09/28/2023 Time: 2:18 PM Risk Stratification Risk Stratification Psycho Social / Medical Concerns Identified: Adjustment to illness/injury;Multiple Comorbidities;Chronic Kidney Disease (09/21/23 1411) Accessed Neighborly to connect patients to social care resources: No (09/21/23 1411) Readmission Risk Score: 19.13 (09/28/23 1201) AM-PAC Score With Stairs : 18 (09/28/23 1000) Caregiver Information Patient Contacts Name Relation Home Work Mobile Rowdy Hogue Sibling [phone] Ariella Acosta Other - (no specific identity) [phone] Margy Phillips Other - (no specific identity) [phone] Transition of Care Checklist Narrative: Per , plan for discharge home tomorrow. Made aware will need TPN order for [facility] to resume delivery. Referred CM to [facility], pharmacy, and Susanne Regalado, nutrition fellow, for TPN orders. TT sent to Vivian and Fabricio to inquire who will be providing discharge TPN order for [facility]. Spoke with Porsche Rutherford with [facility] re: discharge planning. Made aware of plan for discharge tomorrow. States will need to know TPN order by 1000 tomorrow morning in order for delivery to be made tomorrow. 1542: Received TT back from Fabricio stating she will contact [facility] and take care of the order for TPN. Anticipated Transportation at Discharge: friend Patient/Family Expectations: home with TPN Transition Planning Additional Considerations: Care Management will continue to monitor and assist with discharge planning needs * Communication - Susanne Regalado MD - 09/28/2023 9:30 AM EDT Nutrition Support Communication Note: - Reorder home TPN per [facility] note 09/07, 1.5L total volume, at goal macronutrients of 1370 Kcal, 60g amino acids, 200g dextrose, 45g lipids, zinc 5 mg, octreotide 150 mcg, 7 days/week, cycled over 12 hours - Recommend to start vitamin E 400 units daily - Recheck zinc and vitamin E levels (around 11/23/23) - Recommend additional fluid boluses with Na bicarb due to address low CO2 as Na acetate on backorder. - BMP, mag and phos daily - Continue PO vitamin D 50,000 units MWF, PO iron supplementation - Given one time B12 injection inpatient and continue qmonthly thereafter - Micronutrient labs ordered: vitamin A, vitamin D, vitamin E, vitamin K, vitamin B1, folate, vitamin B12, MMA, copper, zinc, iron panel, ferritin - Discussed with TPN pharmacist [facility]. Case discussed with Dr. Liang. Please tigertext with any questions or concerns. Susanne Regalado MD Nutrition and Weight Management Associated attestation - Liane Liang MD - 09/28/2023 4:35 PM EDT I have discussed the patient's management with the medical trainee and agree with the note. Please refer to the documented findings and plan of care. This patient's visit today consisted of a service. I have reviewed the medical history, diagnosis, and plan, as performed by the trainee. Liane Liang MD * Care Plan - Carlotta Wilkinson RN - 09/28/2023 5:57 AM EDT Clinical Goal(s): Pt will have adequate rest this shift (09/27/23 1928) Possible barriers to meeting goal(s)/advancing plan of care: admitting diagnosis and hospital environment Stability of the patient: Moderately stable - low risk of patient condition declining or worsening Summary regarding today's goal(s): Met: Pt rested quietly in bed throughout the night Recommendations: continue with plan of care * Care Plan - Kimberli Shrestha RN - 09/27/2023 6:06 PM EDT Clinical Goal(s): Pt will remain free of falls during shift (09/27/23 1500) Possible barriers to meeting goal(s)/advancing plan of care: Admitting diagnosis Stability of the patient: Moderately stable - low risk of patient condition declining or worsening Summary regarding today's goal(s): Met: Pt had no falls during shift Recommendations: Continue fall precautions. * Ancillary Progress Note - Maureen Thompson COTA - 09/27/2023 3:18 PM EDT PROGRESS NOTE - Occupational Therapy [address] [address] Name: Chandrika Hogue Location: [facility] [id number]-[id number]/W Date: 09/27/2023 Time: 1518 PM Chandrika Hogue is a 58 year old female. Patient Status: Inpatient Insurance: Payor: [facility] CHINMAY Plan: Clemente MOY PREFERRED ENHANCED MP-DD Product Type: *No Product type* Patient Seen: at bedside, nursing cleared patient for therapy Patient Identified By: Name, ID Band and Date Diagnosis: decreased ADL and functional skills, decreased activity tolerance (09/27/231517) Status of treatment: Treatment completed (09/27/231517) Orders: OT evaluation and treatment (09/27/231517) Weight Bearing Status: Weight bearing as tolerated (09/27/231517) Precautions: Falls;Safety;Central line (09/27/231517) Total Treatment Time: 49 (09/27/231517) Subjective: "I am having explosive diarrhea." Pain: Patient has complaints of pain. Pain located in upper/mid back. Pt reported pain was an 8/10.RN aware, pt reported she recently received pain meds. Observations Consciousness: Alert (09/27/231517) Orientation: Oriented times 4 (09/27/231517) Psychosocial: Patient can communicate basic needs;Patient can converse in a social setting (09/27/231517) Safety awareness: The Patient verbalizes insight of current deficits.;The Patient demonstrates carryover of insight during functional tasks.;The Patient can communicate basic needs. (09/27/231517) Other Findings Light touch sensation: LUE;RUE;Intact (per pt) (09/21/23825) Coordination: LUE;RUE;Intact (09/21/23825) Current Functional Status: Activities of Daily Living: Self Care Feeding: Supervision (Please comment) (setup) (09/21/23825) Toileting: Moderate Assistance (to manage after incontinence, per report. but pt reportedshe could have managed herself) (09/21/23825) Dressing Lower Body: Supervision (Please comment) (09/27/231517) Functional Ambulation Assistive Device: No device (09/27/231517) Distance in feet:: 2 (09/27/231517) Level of Assistance: Contact Guard (09/27/231517) Bed Mobility Supine-Sit: Modified Independent (09/27/231517) Sit-Supine: Supervision (Please comment) (09/27/231517) OT Transfers Sit-Stand: Contact Guard (09/27/231517) Stand-Sit: Contact Guard (09/27/231517) Patient Education Education Topic: Energy conservation (09/22/23919) Review of Precautions: Safety;Fall (09/22/23919) Method of Education: Verbalized to patient;Written information provided to patient (09/22/23919) Education Provided to: Patient (09/22/23919) Response to Education: Receptive and agreeable to education (09/22/23919) Barriers to learning: Medical status (09/22/23919) Preferred learning method: Combination (09/22/23919) Alarm Status Patient positioned in: Bed (09/27/231517) With: Call garcia in reach (09/27/231517) Treatment Provided: Therapeutic Procedure: 49 minutes Upper Extremity exercise Demonstrate Exercises: LUE;RUE;Shoulder;Elbow;Wrist;Grasp;2 sets of 10;Flexion;Extension;Internal/external rotation;Shoulder shrugs;Scapular protraction/retraction (09/27/231517) Peformed in: Seated (09/27/231517) Deficits requiring O.T. treatment needs: ADL/self- care;Balance;Endurance;Functional mobility;Safety;Upper extremity strength;Weakness (09/21/23825) Assessment: Pt was agreeable to participating in treatment. OT AMPAC remained the same at 17. Pt required mod I supine to sit at EOB. She completed 2 sets of 10 of shoulder shrugs, shoulder flexion, IR/ER, and scapular protraction/retraction. She received theraputty HEP and green (medium) theraputty after pt reported decrease in fine motor strength/coordination. Pt HEP included:finger opposition,finger extension, resisted finger extension, thumb abduction, gross program research specialist strength, thumb radial adduction, resisted finger flexion, and finger pinch and pull. Pt completed these with fair tolerance. E xercises were completed to increase improvement with ADLs, functional mobility, ROM, and strength. She required supervision to nae socks. Pt required CGA sit <> stand and for standing balance while adjusting bed linens. She was left in supine with call garcia in reach and bedside table to the R. Plan: Continue treatment as directed by the OT consult. Anticipated Frequency (on eval): 1 to 3 times per week (09/27/231517) Equipment Equipment used in Therapy: Hospital bed (09/27/231517) AM-PAC Help From Another Person Eating Meals: A little (09/27/231517) Help From Another Person Taking Care of Personal Grooming: A little (09/27/231517) Help From Another Person To Put On/Take Off Upper Body Clothing: A little (09/27/231517) Help From Another Person To Put On/Take Off Lower Body Clothing: A little (09/27/231517) Help From Another Person Toileting: A lot (09/27/231517) Help From Another Person Bathing: A little (09/27/231517) OT AM-PAC Score: 17 (09/27/231517) OT AM-PAC t-Scale Score: 37.26 (09/27/231517) HLM (Highest Level of Mobility) Goal: Level 6 walk 10 steps or more (09/27/23 0930) * Ancillary Progress Note - Maureen Thompson COTA - 09/27/2023 1:44 PM EDT Attempted to see pt at 1344, pt asleep upon arrival to room but woke to verbal and tactile stim. She declined tx due to fatigue. Treatment will be attempted at a later time or date dependent on schedule, pt tolerance, and pt medical status. * Ancillary Progress Note - Inge Corbett RN - 09/27/2023 1:02 PM EDT CARE MANAGEMENT - ADULT TRANSITION NOTE [facility]-[address] [address] Name: Chandrika Hogue Location: [facility] [id number]-[id number]/W Date: 09/27/2023 Time: 1:02 PM Risk Stratification Risk Stratification Psycho Social / Medical Concerns Identified: Adjustment to illness/injury;Multiple Comorbidities;Chronic Kidney Disease (09/21/23 1411) Accessed Neighborly to connect patients to social care resources: No (09/21/23 1411) Readmission Risk Score: 18.29 (09/27/23 1201) AM-PAC Score With Stairs : 18 (09/27/23 0930) Caregiver Information Patient Contacts Name Relation Home Work Mobile Rowdy Hogue [phone] Ariella Acosta Other - (no specific identity) [phone] Margy Phillips Other - (no specific identity) [phone] Transition of Care Checklist Narrative: TPN being adjusted. No discharge today. Anticipated Transportation at Discharge: friend Patient/Family Expectations: home with TPN Transition Planning Additional Considerations: Care Management will continue to monitor and assist with discharge planning needs * Communication - Susanne Regalado MD - 09/27/2023 10:25 AM EDT Nutrition Support Communication Note: - Reorder home TPN per [facility] note 09/07, 1.5L total volume, at goal macronutrients of 1370 Kcal, 60g amino acids, 200g dextrose, 45g lipids, octreotide 150 mcg, 7 days/week, cycled over 12 hours - Add zinc 5 mg to TPN due to zinc deficiency, level of 38 (checked on 09/23/23) - Na acetate on backorder - Recommend additional fluid boluses due to increasing Creatinine based on volume status. - BMP, mag and phos daily - Continue PO vitamin D 50,000 units MWF, PO iron supplementation - Given one time B12 injection inpatient and continue qmonthly thereafter - Micronutrient labs ordered: vitamin A, vitamin D, vitamin E, vitamin K, vitamin B1, folate, vitamin B12, MMA, copper, zinc, iron panel, ferritin - Discussed with TPN pharmacist [facility]. Case discussed with Dr. Austin. Please tigertext with any questions or concerns. Susanne Regalado MD Nutrition and Weight Management * Ancillary Progress Note - Aaron Giron PTA - 09/27/2023 9:30 AM EDT PROGRESS NOTE - Physical Therapy [facility]-[address] [address] Name: Chandrika Hogue Location: [facility] [id number]-[id number]/W Date: 09/27/2023 Time: 929 Chandrika Hogue is a/an 58 year old female. Patient Status: Inpatient Insurance: Payor: [facility] CHINMAY Plan: [facility] PREFERRED ENHANCED MP-DD Product Type: *No Product type* Patient Seen: at bedside, nursing cleared patient for therapy Patient Identified By: Name, ID Band and Date Diagnosis: FTT (09/25/23 1515) Status of treatment: Treatment completed (09/27/23929) Orders: OOB (09/22/23899) Weight Bearing Status: Weight bearing as tolerated (09/27/23929) Precautions: Safety;Falls (09/27/23929) Total Treatment Time--free text: 70 mins (09/27/23929) Subjective: "I'm feeling ok. I can't go home yet though" Pain: Patient has complaints of pain. Pain located back. 10 P.T. Bed Mobility Roll (Right): Independent (09/22/23899) Roll (Left): Independent (09/22/23899) Supine-Sit: Modified Independent (09/27/23929) Sit-Supine: Modified Independent (09/27/23929) Transfers Sit-Stand: Supervision (09/27/23929) Stand-Sit: Supervision (09/27/23929) W/C-Bed/Mat: Minimal Assistance (09/27/23929) Ambulation: Distance ambulated (feet): 200 ft, 450 ft Assistive Device: Rollator Assist: Minimal Assistance w/ SPC, close SBA w/ rollator Balance Sit (Static): Good (09/25/231514) Sit (Dynamic): Good (09/25/231514) Stand (Static): Fair (09/25/231514) Stand (Dynamic): Poor (09/25/231514) Patient and or Family Goal(s): to get well and to return home Topic of Education: Safety with mobility, Use of assistive device, and Fall prevention Method of Education: Demonstrated the above task to pt: verbalized understanding and or agreement of this information and demonstrated the exercise and or task Treatment Provided: Therapeutic Activities 15 minutes: bed mobility training transfer training Gait Training 30 minutes: gait training with 4-wheel walker and cane Therapeutic Exercises: 25 minutes Alarm Status Patient positioned in: Bed (09/27/23929) With: Call garcia in reach (09/27/23929) Patient Education Review of Precautions: Safety;Fall (09/27/23929) Review of Exercises: Pt Demonstrated Exercise;Verbal Exercises Provided (09/27/23929) Review of Home Program: Yes (09/23/231519) Safety Awareness: Patient verbalizes insight of current deficits;Patient demonstrates carryover of insight during functional tasks;Patient can communicate basic needs (09/27/23929) Preferred learning method: Combination (09/22/23899) Barriers to learning: Psychological factors;Medical Status (09/22/23899) Method of Education: Verbalized to patient;Patient demonstrated task (09/22/23899) Assessment: Pt tolerated tx fair with no reported pain or SOB post tx session. Pt did report feeling fatigued post tx session. Pt was able to ambulate 2 bouts with a seated rest break in between bouts. Pt ambulated with a SPC and required Min A for trunk support and has lateral trunk sway ad several LOB. Pt then ambulated with a rollator and required close SBA. Pt is steadier with the rollator. Pt is unsteady and unsafe to ambulate without assistance at this time. Pt returned to bed post GT bout. Pt performed supine/seated exercises in the bed to increase strength and ROM to improve functional mobility. Pt left lying supine in bed with HOB elevated to comfort. No needs post tx session. Pt in structed to not get up without assistance. Deficits requiring P.T. treatment needs: Safety;Mobility;Balance;Weakness;Endurance;Lower extremitystrength (09/22/23 0900) Plan: Continue with current treatment plan established on evaluation. AM PAC Score with Stairs: 18 * Care Plan - Laurent Hutchinson RN - 09/27/2023 7:00 AM EDT Clinical Goal(s): Pt will remain free of falls during shift (09/26/23 2300) Possible barriers to meeting goal(s)/advancing plan of care: admitting diagnosis Stability of the patient: Moderately stable - low risk of patient condition declining or worsening Summary regarding today's goal(s): Met: patient was free of falls during shift Recommendations: continue fall precautions * Care Plan - Kimberli Shrestha RN - 09/26/2023 6:19 PM EDT Clinical Goal(s): Pt will remain free of falls during shift (09/26/23 1500) Possible barriers to meeting goal(s)/advancing plan of care: Admitting diagnosis Stability of the patient: Moderately stable - low risk of patient condition declining or worsening Summary regarding today's goal(s): Met: Pt had no falls during shift Recommendations: Continue fall precautions * Ancillary Progress Note - Aaron Giron PTA - 09/26/2023 3:30 PM EDT PROGRESS NOTE - Physical Therapy [facility]-[address] [address] Name: Chandrika Hogue Location: [facility] [id number]-[id number]/W Date: 09/26/2023 Time: 1530 Chandrika Hogue is a/an 58 year old female. Patient Status: Inpatient Insurance: Payor: GHClemente MOY Plan: [facility] PREFERRED ENHANCED MP-DD Product Type: *No Product type* Patient Seen: at bedside, nursing cleared patient for therapy Patient Identified By: Name, ID Band and Date Diagnosis: FTT (09/25/231514) Status of treatment: Treatment completed (09/26/231529) Orders: OOB (09/22/23899) Weight Bearing Status: Weight bearing as tolerated (09/26/231529) Precautions: Safety;Falls (09/26/231529) Total Treatment Time--free text: 55 mins (09/26/231529) Subjective: "Im still here. You want to walk" Pain: Patient has complaints of pain. Pain located back. 5/10 P.T. Bed Mobility Roll (Right): Independent (09/22/23899) Roll (Left): Independent (09/22/23899) Supine-Sit: Modified Independent (09/26/231529) Sit-Supine: Modified Independent (09/26/231529) Transfers Sit-Stand: Contact Guard (09/26/231529) Stand-Sit: Contact Guard (09/26/231529) W/C-Bed/Mat: Minimal Assistance (09/26/231529) Ambulation: Distance ambulated (feet): 200 ft x 2 Assistive Device: Straight cane Assist: Minimal Assistance for several LOB, CGA-close SBA for the rest. Balance Sit (Static): Good (09/25/231514) Sit (Dynamic): Good (09/25/231514) Stand (Static): Fair (09/25/231514) Stand (Dynamic): Poor (09/25/231514) Patient and or Family Goal(s): to get well and to return home Topic of Education: Safety with mobility, Use of assistive device, and Fall prevention Method of Education: Demonstrated the above task to pt: verbalized understanding and or agreement of this information and demonstrated the exercise and or task Treatment Provided: Therapeutic Activities 15 minutes: bed mobility training transfer training car transfer training Gait Training 25 minutes: gait training with cane Therapeutic Exercises: 15 minutes Alarm Status Patient positioned in: Bed (09/26/231529) With: Call garcia in reach (04/02/24 1530) Patient Education Review of Precautions: Safety;Fall (09/26/23 1530) Review of Exercises: Pt Demonstrated Exercise (09/26/23 153) Review of Home Program: Yes (09/23/23 152) Safety Awareness: Patient verbalizes insight of current deficits;Patient demonstrates carryover of insight during functional tasks;Patient can communicate basic needs (09/26/23 153) Preferred learning method: Combination (09/22/23899) Barriers to learning: Psychological factors;Medical Status (09/22/23899) Method of Education: Verbalized to patient;Patient demonstrated task (09/22/23899) Assessment: Pt tolerated tx fair with no reported increased pain or SOB post tx session. Pt did report feeling fatigued post tx session. Pt was given manual assist for trunk support ranging from close SBA to Min A for several LOB in the hallway. Pt ambulated 2 bouts with a seated rest break between. Pt is unsteady and unsafe to transfer or ambulate without assistance at this time. Pt performed supine exercises in the bed to increase strength and ROM to improve functional mobility. Pt was left lying supine in bed with HOB elevated to comfort. No needs post tx session. Pt instructed to not get up without assistance. hand or machine paster made aware pt asking for heating pad and is contacting Dr. Gross for orders. Deficits requiring P.T. treatment needs: Safety;Mobility;Balance;Weakness;Endurance;Lower extremitystrength (09/22/23899) Plan: Continue with current treatment plan established on evaluation. AM PAC Score with Stairs: 18 * Ancillary Progress Note - Inge Corbett RN - 09/26/2023 12:32 PM EDT CARE MANAGEMENT - ADULT TRANSITION NOTE [facility]-[address] [address] Name: Chandrika Hogue Location: [facility] [id number]/W Date: 09/26/2023 Time: 12:32 PM Risk Stratification Risk Stratification Psycho Social / Medical Concerns Identified: Adjustment to illness/injury;Multiple Comorbidities;Chronic Kidney Disease (09/21/23 5511) Accessed Neighborly to connect patients to social care resources: No (09/21/23 1411) Readmission Risk Score: 20.41 (09/26/23 1200) AM-PAC Score With Stairs : 17 (09/26/23 0737) Caregiver Information Patient Contacts Name Relation Home Work Rowdy Valerio Sibling [phone] Ariella Acosta Other - (no specific identity) [phone] Margy Phillips Other - (no specific identity) [phone] Transition of Care Checklist Narrative: discussed in IDT rounds. TPN adjustments being made. Patient voiced to clinical sociologist, Kimber, may want to stop TPN. Dr. Gross aware. No discharge today. Anticipated Transportation at Discharge: family Patient/Family Expectations: home Transition Planning Additional Considerations: Care Management will continue to monitor and assist with discharge planning needs * Ancillary Progress Note - Kiara Sanchez RDN - 09/26/2023 11:25 AM EDT CLINICAL NUTRITION CONSULT/PROGRESS NOTE [facility]-[address] [address] Name: Chandrika Hogue Location: [facility] [id number]/W Date: 09/26/2023 Time: 11:25 AM How patient was identified (select 2): date and Name Discussed in interdisciplinary rounds: No Patricia Hogue is a 58 year old female being seen for parenteral nutrition and follow-up Primary Diagnosis: Failure to thrive in adult Other pertinent information: Patient's TPN running and being managed per Nutrition and Weight Management (Dr. Wilkerson & Dr. Regalado). Patient reports she is experiencing diarrhea, and would like Octreotide added back - relayed information to our pharmacists. Patient also asking for palmira- MELI Mitchell aware. Patient reports doing "okay" with her appetite/PO intake, she is doing her best to eat when she can. Patient's weight has increased since admission, pt questioning if the weight gain is "real" or just related to fluids. Patient relays to me she is still unsure if she wants to continue with TPN upon discharge, she wants to discuss this with Dr. Wilkerson. Relayed information to Dr. Gross as well during IDT rounds. 1303: Spoke with Dr. Wilkerson over the phone regarding the above; he is aware. Dr. Wilkerson reports pt isnearing discharge- relayed to Dr. Gross. Dr. Wilkerson to continue following patient's TPN. NUTRITION ASSESSMENT: Past medical/surgical history and medications reviewed. Food/Nutrition-Related History Nutrition Support: Receiving TPN at goal per [facility] Diet: Regular Previously followed diet: Regular Food Allergies/Intolerances: NKFA Adult Energy Intake: Less than 75% of estimated energy requirement for greater than 1 month (moderate/severe, chronic illness). Percentage of meal intake: 25-100% Oral Nutrition Supplement (ONS): Boost Breeze (1 cup provides 250 calories, 9 grams protein, 54 grams carbohydrate) daily Pertinent medications/vitamins/minerals/supplements: Remeron, Vit D2, Vit C Pertinent Biochemical Data: Latest Reference Range & Units Most Recent Phosphorus 2.5 - 4.8 mg/dL 5.4 (H) 09/26/23 06:44 (H): Data is abnormally high Nutrition & Weight Management recommending to decrease/remove phos from TPN today - pharmacist aware. Nutrition-Focused Physical Findings: Appearance: Cachectic and Thin Respiratory support: Supplemental O2 Delivery: Room Air, None Nasal/Oral: No issues identified Digestive: Appetite good and Diarrhea Last Bowel Movement: 09/25/23 (09/25/23 2200) Cognition: Awake, alert and Oriented Skin: Intact Enteral access: None Nutrition Focused Physical Exam: NFPE completed on 09/21/2023 Subcutaneous Fat Loss: Orbital fat pads: Severe Buccal fat: Severe Tricep: Severe Rib: Severe Muscle Loss: Temples: Severe Clavicles: Severe Shoulders: Severe Scapula: Severe Interosseous: Severe Quadriceps: Severe Calves: Severe Anthropometrics Measurements Height: 149.9 cm (4' 11") (09/20/23 1249) Admission weight: 33.6 kg Weight: 39.3 kg (86 lb 9.6 oz) (09/26/23 0800) BMI: 14.96 (09/20/23 1249) Usual Body Weight: 36.3 kg [place] weight: 41.5 kg [place] Weight Based on BMI: 18.5 Interpretation of Weight Change Prior to Admission: Greater than 5% weight loss in 1 month (Severe) Weight Changes Since Admission: +5.7 kg Nutrition Prescription: Energy needs: 30-35 Kcal/kg Kcal/day: 4480-3315 Based on [place] weight Protein needs: 1.25-1.5 gm/kg Protein: 52-62 Based on [place] weight Fluid needs: 30 ml/kg Fluid: 1245 ml/day Based on [place] weight Malnutrition: Malnutrition Present: Yes (09/21/23 101) Adult Malnutrition Classification: Severe (09/21/23 101) Malnutrition Characteristics: Fat loss;Muscle loss;Inadequate energy intake;Weight loss (09/21/23 101) NUTRITION DIAGNOSIS: Malnutrition severe related to chronic illness as evidenced by patient consuming less than 75% of estimated energy requirements x 1 month, greater than 5% weight loss x 1 month, severe fat loss, and severe muscle loss. 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 Goals: Patient will continue to consume as much PO intake as able. Patient's labs will be WNL in 2 days. Previous diagnosis/Goals: Patient's lytes were WNL, still monitoring. NUTRITION INTERVENTION/PLAN: Orders: Oral nutrition supplement continued Boost Breeze (1 cup provides 250 calories, 9 grams protein, 54 grams carbohydrate) daily Clinical Nutrition Recommendations: Diet: Continue current nutrition plan Parenteral Nutrition: PPN - per Nutrition and Weight Management NUTRITION MONITORING AND EVALUATION: Nursing documentation flowsheets for percent meal intake Tolerance of supplement per patient/nursing report Parenteral nutrition intake for formula, rate, progress toward goal regimen Renal and electrolyte profile, protein profile for possible refeeding syndrome Weight for trends Plan follow-up: Will follow and adjust nutrition plan of care as medical condition requires. Please contact for change(s) in patient condition requiring earlier intervention. Kiara Sanchez, MS, RDN, LDN Clinical Dietitian [facility] Available via [place] Text [phone],s * Communication - Susanne Regalado MD - 09/26/2023 9:57 AM EDT Nutrition Support Communication Note: - Reorder home TPN per [facility] note 09/07, 1.2L total volume, at goal macronutrients of 1370 Kcal, 60g amino acids, 200g dextrose, 45g lipids, 7 days/week, cycled over 12 hours - Increase volume to 1.5 L - Decrease amino acids to 60 g - Add octreotide 150 mcg - Remove Na phos - BMP, mag and phos daily - Continue PO vitamin D 50,000 units MWF - Given one time B12 injection inpatient and continue qmonthly thereafter - Continue PO iron supplementation - Micronutrient labs ordered: vitamin A, vitamin D, vitamin E, vitamin K, vitamin B1, folate, vitamin B12, MMA, copper, zinc, iron panel, ferritin - Discussed with TPN pharmacist Rubin Dowell. Case discussed with Dr. Austin. Please tigertext with any questions or concerns. Susanne Regalado MD Nutrition and Weight Management * Care Plan - Vangie Sullivan RN - 09/26/2023 6:42 AM EDT Clinical Goal(s): Pt will remain free from falls this shift. (09/25/232213) Possible barriers to meeting goal(s)/advancing plan of care: weakness, unsteady gait Stability of the patient: Moderately stable - low risk of patient condition declining or worsening Summary regarding today's goal(s): Met: pt remained free from falls this shift. Recommendations: Continue plan of care, use of cane and SA. * Pt Handout (on AVS) - Nicole Marcial RN - 09/26/2023 3:57 AM EDT Images from the original note were not included. TPN (Total Parenteral Nutrition) - Video This is a TPN solution. This medicine has nutrients that your body needs. Your doctor may order a TPN for you if you cannot eat for several days or weeks. To view the video go to this web address: [email or web address] Or, scan this QR code with your smart phone 2023 [employer] / [employer]. All Rights Reserved. * Care Plan - Alissa Woody, RN - 09/25/2023 5:12 PM EDT Clinical Goal(s): Patient will remain free from falls this shift. (09/25/23 9459) Possible barriers to meeting goal(s)/advancing plan of care: weakness, unfamiliar environment Stability of the patient: Moderately stable - low risk of patient condition declining or worsening Summary regarding today's goal(s): Met: Patient remained free from falls this shift. Recommendations: Maintain fall precautions, assess for pain, treat as indicated and evaluate intervention for effectiveness. * Ancillary Progress Note - Breanne Damon, Individual Pension Consultant - 09/25/2023 3:59 PM EDT CARE MANAGEMENT - ADULT TRANSITION NOTE [facility]-[address] [address] Name: Chandrika Hogue Location: [facility] [id number]/W Date: 09/25/2023 Time: 3:59 PM Risk Stratification Risk Stratification Psycho Social / Medical Concerns Identified: Adjustment to illness/injury;Multiple Comorbidities;Chronic Kidney Disease (09/21/23 1411) Accessed Neighborly to connect patients to social care resources: No (09/21/23 1411) Readmission Risk Score: 17.96 (09/25/23 1201) AM-PAC Score With Stairs : 18 (09/25/23 0909) Caregiver Information Patient Contacts Name Relation Home Work Mobile Rowdy Hogue [phone] Ariella Acosta Other - (no specific identity) [phone] Margy Phillips Other - (no specific identity) [phone] Transition of Care Checklist Narrative: Pt discussed in IDT rounds. No d/c today. Anticipated D/C date either Mon-Monday.CM willcontinue to follow. Anticipated Transportation at Discharge: Friend Patient/Family Expectations: to get well and return home Transition Planning Additional Considerations: Care Management will continue to monitor and assist with discharge planning needs * Ancillary Progress Note - Porsche Emanuel PTA - 09/25/2023 3:15 PM EDT PROGRESS NOTE - Physical Therapy [facility]-[address] [address] Name: Chandrika Hogue Location: [facility] [id number]/W Date: 09/25/2023 Time: 3:15 PM Chandrika Hogue is a/an 58 year old female. Patient Status: Inpatient Insurance: Payor: Clemente MOY Plan: CHARLIE MOY PREFERRED ENHANCED MP-DD Product Type: *No Product type* Patient Seen: at bedside, nursing cleared patient for therapy Patient Identified By: Name, ID Band and Date Diagnosis: FTT (09/25/231514) Status of treatment: Treatment completed (09/25/231514) Orders: OOB (09/22/23899) Weight Bearing Status: Weight bearing as tolerated (09/25/231514) Precautions: Safety;Falls (09/25/231514) Total Treatment Time--free text: 54 minutes (09/25/231514) Subjective: "this is just what I do. I walk and fall over." Pain: Patient has complaints of pain. Pain located in sacrum. Patient reports pain at 9/10. RN administered morphine prior to mobility. Patient reports pain at end of session at 6/10. P.T. Bed Mobility Roll (Right): Independent (09/22/23899) Roll (Left): Independent (09/22/23899) Supine-Sit: Modified Independent (09/25/231514) Sit-Supine: Modified Independent (09/25/231514) Transfers Sit-Stand: Minimal Assistance (09/25/231514) Stand-Sit: Minimal Assistance (09/25/231514) W/C-Bed/Mat: Supervision (09/23/23 152) Ambulation: Distance ambulated (feet): 210 + 215 + 100 ft Assistive Device: Straight cane (3 prong) Assist: Moderate Assistance (CGA except for LOB which are several per gait bout ranging from min tomod assist to recover) Balance Sit (Static): Good (09/25/231514) Sit (Dynamic): Good (09/25/231514) Stand (Static): Fair (09/25/231514) Stand (Dynamic): Poor (09/25/231514) Patient and or Family Goal(s): to get well and to return home Topic of Education: Safety with mobility, Goals/plan of care, Use of assistive device, and Fall prevention Method of Education: Verbal discussion and explanation provided to pt: needed additional education for fall prevention Treatment Provided: Therapeutic Activities 25 minutes: bed mobility training transfer training Balance and education Gait Training 29 minutes: gait training with cane Alarm Status Patient positioned in: Bed (09/25/231514) With: Call garcia in reach (09/25/231514) Patient Education Review of Precautions: Safety;Fall (09/25/231514) Review of Exercises: Written Handout Provided;Pt Demonstrated Exercise;Verbal Exercises Provided (09/23/231519) Review of Home Program: Yes (09/23/23 152) Safety Awareness: Patient verbalizes insight of current deficits;Patient demonstrates carryover of insight during functional tasks;Patient can communicate basic needs (09/22/23899) Preferred learning method: Combination (09/22/23899) Barriers to learning: Psychological factors;Medical Status (09/22/23899) Method of Education: Verbalized to patient;Patient demonstrated task (09/22/23899) Assessment: patient with a decreased AM-PAC score of 17 presents with significant gait deviations and several LOB during ambulation requiring up to mod assist to recover. Patient ambulates with 3 pronged cane with very NBOS with intermittent scissoring any gait path deviation with most LOB noted toR side. Patient is able to increased MARYCRUZ but requires consistent focus on task to do so and less LOB are noted when MARYCRUZ is wider. Patient declines to use RW or rollator as she will note use one once home. Fall prevention education provided to patient throughout session with patient verbalizing understanding of education and denying any questions/concerns at end of session. Overall, patient presents with balance deficits and poor safety awareness and does require assistance for all mobility at this time. Deficits requiring P.T. treatment needs: Safety;Mobility;Balance;Weakness;Endurance;Lower extremitystrength (09/22/23 0900) Plan: Continue with current treatment plan established on evaluation. AM PAC Score with Stairs: 17 * Communication - Vic Wilkerson DO - 09/25/2023 9:52 AM EDT Nutrition Support Communication Note: - Reorder home TPN per [facility] note 09/07, 1.2L total volume, at goal macronutrients of 1370 Kcal, 65g amino acids, 200g dextrose, 45g lipids, 7 days/week - Cycle to 12 hours tonight - Decrease K acetate to 20 mEq - BMP, mag and phos daily - Recommend to start PO vitamin D 50,000 units MWF - Recommend to give one time B12 injection inpatient as level < 500 and continue qmonthly thereafter - Recommend to start PO Vitron-C 65-125 mg daily - Micronutrient labs ordered: vitamin A, vitamin D, vitamin E, vitamin K, vitamin B1, folate, vitamin B12, MMA, copper, zinc, iron panel, ferritin - Discussed with TPN pharmacist Rubin Dowell. Case discussed with Dr. Wilkerson. Please tigertext with any questions or concerns. Susanne Regalado MD Nutrition and Weight Management * Care Plan - Antonette Alcazar, RN - 09/25/2023 6:53 AM EDT Clinical Goal(s): Pt will report adequate pain control this shift (09/24/231999) Possible barriers to meeting goal(s)/advancing plan of care: clinical condition Stability of the patient: Moderately stable - low risk of patient condition declining or worsening Summary regarding today's goal(s): Met: Pt reported adequate pain control this shift with PRN pain medications Recommendations: continue to monitor pts pain level this shift * Care Plan - Radha Mendieta RN - 09/24/2023 6:29 PM EDT Clinical Goal(s): Pt will report adequate pain control this shift (09/24/23 0900) Possible barriers to meeting goal(s)/advancing plan of care: coccyx pain Stability of the patient: Moderately stable - low risk of patient condition declining or worsening Summary regarding today's goal(s): Met: pt reports adequate pain control with PRN pain medication Recommendations: continue to assess pain, administer pain medication as needed * Care Plan - Antonette Alcazar RN - 09/24/2023 6:47 AM EDT Clinical Goal(s): Pt will report adequate rest this shift (09/23/23 2130) Possible barriers to meeting goal(s)/advancing plan of care: clinical condition Stability of the patient: Moderately stable - low risk of patient condition declining or worsening Summary regarding today's goal(s): Met: Pt reported adequate rest this shift Recommendations: continue with plan of care * Care Plan - Ani Prado RN - 09/23/2023 6:21 PM EDT Clinical Goal(s): Pt will ambulate in hallway this shift (09/23/23 0956) Possible barriers to meeting goal(s)/advancing plan of care: Weakness Stability of the patient: Moderately stable - low risk of patient condition declining or worsening Summary regarding today's goal(s): Met: Patient ambulated in hallway twice this shift Recommendations: Continue to encourage ambulation * Ancillary Progress Note - Aaron Giron PTA - 09/23/2023 3:20 PM EDT PROGRESS NOTE - Physical Therapy [facility]-[address] [address] Name: Chandrika Hogue Location: [facility] [id number]/W Date: 09/23/2023 Time: 4:14 PM Chandrika Hogue is a/an 58 year old female. Patient Status: Inpatient Insurance: Payor: [facility] MARYVALE CHINMAY Plan: Clemente MOY PREFERRED ENHANCED MP-DD Product Type: *No Product type* Patient Seen: at bedside, nursing cleared patient for therapy Patient Identified By: Name, ID Band and Date Diagnosis: FTT (09/22/23899) Status of treatment: Treatment completed (09/23/231519) Orders: OOB (09/22/23899) Weight Bearing Status: Weight bearing as tolerated (09/23/23 152) Precautions: Safety;Falls (09/23/23 152) Total Treatment Time--free text: 40 mins (09/23/23 152) Subjective: "I just think I will have trouble getting into the car" Pain: Patient has complaints of pain. Pain located sacrum. 5/10 P.T. Bed Mobility Roll (Right): Independent (09/22/23899) Roll (Left): Independent (09/22/23899) Supine-Sit: Modified Independent (09/23/23 1520) Sit-Supine: Modified Independent (09/23/23 1520) Transfers Sit-Stand: Supervision (09/23/23 1520) Stand-Sit: Supervision (09/23/23 1520) W/C-Bed/Mat: Supervision (09/23/23 152) Ambulation: Distance ambulated (feet): 180 Assistive Device: Quad cane Assist: Contact Guard Balance Sit (Static): Good (09/22/23899) Sit (Dynamic): Good (09/22/23899) Stand (Static): Fair (09/22/23899) Stand (Dynamic): Fair (09/22/23899) Patient and or Family Goal(s): to get well and to return home Topic of Education: Safety with mobility, Use of assistive device, and Fall prevention Method of Education: Demonstrated the above task to pt: verbalized understanding and or agreement of this information and demonstrated the exercise and or task Treatment Provided: Gait Training 15 minutes: gait training with narrow base quad cane Therapeutic Exercises: 25 minutes Alarm Status Patient positioned in: Bed (09/23/231519) With: Call garcia in reach (09/23/231519) Patient Education Review of Precautions: Safety;Fall (09/23/231519) Review of Exercises: Written Handout Provided;Pt Demonstrated Exercise;Verbal Exercises Provided (09/23/231519) Review of Home Program: Yes (09/23/231519) Safety Awareness: Patient verbalizes insight of current deficits;Patient demonstrates carryover of insight during functional tasks;Patient can communicate basic needs (09/22/23899) Preferred learning method: Combination (09/22/23899) Barriers to learning: Psychological factors;Medical Status (09/22/23899) Method of Education: Verbalized to patient;Patient demonstrated task (09/22/23899) Assessment: Pt tolerated tx fair with no reported increased pain or SOB post tx session. Pt did report feeling fatigued post tx session. Pt ambulated with cane and CGA for safety. Pt displays a lateral trunk sway and decreased step length and speed. Pt returned to room where she performed seated TEas well was given HEP and TBand for B UE and LE exercise. Pt verbalized understanding. Pt returned to lying supine in bed with HOB elevated to comfort. No needs post tx session. Pt instructed to not get up without assistance. Deficits requiring P.T. treatment needs: Safety;Mobility;Balance;Weakness;Endurance;Lower extremitystrength (09/22/23899) Plan: Continue with current treatment plan established on evaluation. AM PAC Score with Stairs: 19 * Communication - Juliet Boswell MD - 09/23/2023 12:24 PM EDT Nutrition support communication note: Discussed with patient's hospitalist Dr. Gross as well as TPN pharmacist Rubin Dowell. As patient is refusing blood draws, plan is to draw labs from patient's port. Unfortunately, this was unableto be done as of yet due to hospital policy (nursing unable to draw blood from ports, awaiting staff availability with clearance to do this). Due to cut off time of 12:00 p.m. for TPN ordering, we will continue TPN with changes based on yesterday's labs. Decrease potassium acetate from 40 mEq to 20mEq due to patient's elevated K yesterday. Unable to switch sodium chloride to sodium acetate due to sodium acetate being on back order. Will follow up later if labs were able to be obtained and replace electrolytes outside of TPN if needed. Juliet Boswell MD 2:12 pm: Labs resulted and K 5.7. Unclear where blood was drawn from or if TPN was stopped for an adequate time before blood drawn if obtained via port. Discussed with hospitalist. Recommend stoppingcurrent bag of TPN as it contains potassium. Spoke with pharmacy, TPN able to be made this evening without potassium added. Juliet Boswell MD * Care Plan - Irma Hargrove RN - 09/23/2023 6:30 AM EDT Clinical Goal(s): Pt. will report adequate pain control this shift (09/22/23 1932) Possible barriers to meeting goal(s)/advancing plan of care: acuity of illness Stability of the patient: Moderately stable - low risk of patient condition declining or worsening Summary regarding today's goal(s): Met: Pt reported no pain this shift Recommendations: Continue with plan of care * Care Plan - Aye Charles RN - 09/22/2023 6:40 PM EDT Clinical Goal(s): Patient will have adequate pain control during shift (09/22/23 1004) Possible barriers to meeting goal(s)/advancing plan of care: chronic pain Stability of the patient: Moderately stable - low risk of patient condition declining or worsening Summary regarding today's goal(s): Met: Patient with adequate pain control Recommendations: continue to assess pain and medicate per MAR * Ancillary Progress Note - Inge Corbett RN - 09/22/2023 1:30 PM EDT CARE MANAGEMENT - ADULT TRANSITION NOTE [facility]-[address] [address] Name: Chandrika Hogue Location: [facility] [id number]/W Date: 09/22/2023 Time: 1:30 PM Risk Stratification Risk Stratification Psycho Social / Medical Concerns Identified: Adjustment to illness/injury;Multiple Comorbidities;Chronic Kidney Disease (09/21/23 141) Accessed Neighborly to connect patients to social care resources: No (09/21/23 141) Readmission Risk Score: 20.43 (09/22/23 1201) AM-PAC Score With Stairs : 19 (09/22/23 1004) Caregiver Information Patient Contacts Name Relation Home Work Mobile Rowdy Hogue Sibling [phone] Ariella Acosta Other - (no specific identity) [phone] Margy Phillips Other - (no specific identity) [phone] Transition of Care Checklist Narrative: discussed in IDT rounds. Psych consult completed with no recommendation for inpatient treatment. Continue to adjust TPN. [facility] will needs updated order when ready for discharge. Anticipated Transportation at Discharge: friend Patient/Family Expectations: home with TPN Transition Planning Additional Considerations: Care Management will continue to monitor and assist with discharge planning needs * Communication - Susanne Regalado MD - 09/22/2023 12:06 PM EDT Nutrition Support Communication Note: - Recommend to resume home TPN per [facility] note 09/07, 1.2L total volume, at goal macronutrients of 1370 Kcal, 60g amino acids, 200g dextrose, 45g lipids - Increase dextrose to goal 200g today - Increased TPN to daily - 24 hour cycle for now, recommend to start cycling tomorrow based on AM labs as patient is at riskfor refeeding - Add 15 mmol NaPhos and remove 12 mmol Kphos - Increase K acetate to 40 mEq (total K decreased to 40 mEq today) - BMP, mag and phos BID - Recommend to recheck micronutrient labs: vitamin A, vitamin D, vitamin E, vitamin K, vitamin B1, folate, vitamin B12, MMA, copper, zinc, iron panel, ferritin - Patient refused lab collection of micronutrient levels today so plan to collect them tomorrow - Communicated to pharmacy Case discussed with Dr. Liang. Please tigertext with any questions or concerns. Susanne Regalado MD Nutrition and Weight Management Associated attestation - Liane Liang MD - 09/22/2023 5:48 PM EDT Attestation: I have discussed the patient's management with the medical trainee and TPN pharmacist and agree with the note. Please refer to the documented findings and plan of care. Liane Liang MD * Ancillary Progress Note - Maureen Thompson COTA - 09/22/2023 9:20 AM EDT PROGRESS NOTE - Occupational Therapy [facility]-[address] [address] Name: Chandrika Hogue Location: [facility] [id number]/W Date: 09/22/2023 Time: 0920 AM Chandrika Hogue is a 58 year old female. Patient Status: Inpatient Insurance: Payor: [facility] Plan: [facility] PREFERRED ENHANCED MP-DD Product Type: *No Product type* Patient Seen: at bedside, nursing cleared patient for therapy Patient Identified By: Name, ID Band and Date Diagnosis: decreased ADL and functional skills, decreased activity tolerance (09/22/23919) Status of treatment: Treatment completed (09/22/23919) Orders: OT evaluation and treatment (09/22/23919) Weight Bearing Status: Weight bearing as tolerated (09/22/23919) Precautions: Falls;Safety;Central line (09/22/23919) Total Treatment Time: 26 (09/22/23919) Subjective: "I have no life and people will say "well you're alive" but I am hooked to this thing for 12 hours a day. I can't go to a ball game or a movie or out because I have to be home at 730 to get on this so it is done when I wake up in the morning and that's no way to livePatient does not have an ICU stay during this admission. I know it probably sounds bad and people think I am signing my warrant but the Lord knows when we are going." "I think it was just a coincidence but when I got cut back to 3 times a week for TPN I started to feel really shitty. It was terrible. I had suicidal thoughts and became depressed. I just felt so badand that's when they thought I should come here and try to see if this helped." Dr. Gross and MELI Charles aware of pt's comments. Pain: Patient has complaints of pain. Pain located in sacrum. Pt did not rate pain. RN aware. Observations Consciousness: Alert (09/22/23919) Orientation: Oriented times 4 (09/22/23919) Psychosocial: Patient can communicate basic needs;Patient can converse in a social setting (09/22/23919) Safety awareness: The Patient verbalizes insight of current deficits.;The Patient demonstrates carryover of insight during functional tasks.;The Patient can communicate basic needs. (09/22/23919) Other Findings Light touch sensation: LUE;RUE;Intact (per pt) (09/21/23825) Coordination: LUE;RUE;Intact (09/21/23825) Current Functional Status: Activities of Daily Living: Self Care Feeding: Supervision (Please comment) (setup) (09/21/23825) Toileting: Moderate Assistance (to manage after incontinence, per report. but pt reportedshe could have managed herself) (09/21/23825) Dressing Lower Body: Contact Guard (per clinical judgement, mod I in long sitting for non-skid socks during tx) (09/22/23919) Bed Mobility Supine-Sit: Supervision (Please comment) (HOB elevated, used rail) (09/21/23825) Sit-Supine: Supervision (Please comment) (09/21/23825) OT Transfers Sit-Stand: Contact Guard (09/21/23825) Stand-Sit: Supervision (Please comment) (09/21/23825) Patient Education Education Topic: Energy conservation (09/22/23919) Review of Precautions: Safety;Fall (09/22/23919) Method of Education: Verbalized to patient;Written information provided to patient (09/22/23919) Education Provided to: Patient (09/22/23919) Response to Education: Receptive and agreeable to education (09/22/23919) Barriers to learning: Medical status (09/22/23919) Preferred learning method: Combination (09/22/23919) Alarm Status Patient positioned in: Bed (09/22/23919) With: Call garcia in reach (09/22/23919) Treatment Provided: Self Prison Management Trainin minutes Therapeutic Procedure: 14 minutes Upper Extremity exercise Demonstrate Exercises: LUE;RUE;Shoulder;Wrist;Elbow;Flexion;Extension;Internal/external rotation;Donya ulder shrugs;Supination/pronation (2 sets of 15) (09/22/23919) Peformed in: Supine (09/22/23919) Deficits requiring O.T. treatment needs: ADL/self- care;Balance;Endurance;Functional mobility;Safety;Upper extremity strength;Weakness (09/21/23825) Assessment: Pt was agreeable to participating in treatment. OT AMPAC remained the same at 17. Pt was in supine and reported no ADLs to complete at this time and declined mobility. She received educational handout on energy conservation for ADLs/IADLs. Overview of paperwork was discussed with pt whoreported difficulty with IADLs due to fatigue post work shift. She noted her brother was willing topay for a cleaning lady for her. Pt was able to change socks in long sitting with mod I. Pt completed 2 sets of 15 of UE exercises including: shoulder shrugs, shoulder flexion, elbow flexion/extension, IR/ER, and forearm supination/pronation. Pt only completed 1 set of shoulder flexion due to fatigu e. She completed these with fair-good tolerance. Exercises were completed to increase improvement with ADLs, functional mobility, ROM, and strength. She was left in supine with call garcia in reach, and bedside table to the R. Plan: Continue treatment as directed by the OT consult. Anticipated Frequency (on eval): 1 to 3 times per week (09/22/23919) Equipment Equipment used in Therapy: Hospital bed (09/22/23919) AM-PAC Help From Another Person Eating Meals: A little (09/22/23919) Help From Another Person Taking Care of Personal Grooming: A little (09/22/23919) Help From Another Person To Put On/Take Off Upper Body Clothing: A little (09/22/23919) Help From Another Person To Put On/Take Off Lower Body Clothing: A little (09/22/23919) Help From Another Person Toileting: A lot (09/22/23919) Help From Another Person Bathing: A little (09/22/23919) OT AM-PAC Score: 17 (09/22/23919) OT AM-PAC t-Scale Score: 37.26 (09/22/23919) HLM (Highest Level of Mobility) Goal: Level 6 walk 10 steps or more (09/22/23 1004) * Ancillary Progress Note - Mi Mejia PTA - 09/22/2023 9:00 AM EDT PROGRESS NOTE - Physical Therapy [facility]-[address] [address] Name: Chandrika Hogue Location: [facility] [id number]/W Date: 09/22/2023 Time: 9:23 AM Chandrika Hogue is a/an 58 year old female. Patient Status: Inpatient Insurance: Payor: [facility] [place] Plan: [facility] [place] PREFERRED ENHANCED MP-DD Product Type: *No Product type* Patient Seen: at bedside, nursing cleared patient for therapy Patient Identified By: Name, ID Band and Date Diagnosis: FTT (09/22/23899) Status of treatment: Treatment completed (09/22/23899) Orders: OOB (09/22/23899) Weight Bearing Status: Weight bearing as tolerated (09/22/23899) Precautions: Falls;Safety;Other - describe (09/22/23899) Total Treatment Time--free text: 15 (09/22/23899) Subjective: Pt states she feels a little off this am. States she has been using the cane and pushing th IV pole. Gets a little tired with walking. Pt states she is having difficulty getting in and out of her [employer] vehicle. Has trouble lifting her R leg Pain: No complaints of pain P.T. Bed Mobility Roll (Right): Independent (09/22/23899) Roll (Left): Independent (09/22/23899) Supine-Sit: Independent (09/22/23899) Sit-Supine: Independent (09/22/23899) Transfers Sit-Stand: Supervision (09/22/23899) Stand-Sit: Supervision (09/22/23899) W/C-Bed/Mat: Supervision (09/22/23899) Ambulation: Distance ambulated (feet): 250 Assistive Device: Straight cane Assist: Contact Guard unsteady gt Balance Sit (Static): Good (09/22/23899) Sit (Dynamic): Good (09/22/23899) Stand (Static): Fair (09/22/23899) Stand (Dynamic): Fair (09/22/23899) Patient and or Family Goal(s): to return home Topic of Education: Safety with mobility and Use of assistive device Method of Education: Demonstrated the above task to pt: demonstrated the exercise and or task Treatment Provided: Gait Training 15 minutes: gait training with cane Alarm Status Patient positioned in: Bed (09/22/23899) With: Call garcia in reach (09/22/23899) Patient Education Review of Precautions: Safety;Fall (09/22/23899) Safety Awareness: Patient verbalizes insight of current deficits;Patient demonstrates carryover of insight during functional tasks;Patient can communicate basic needs (09/22/23899) Preferred learning method: Combination (09/22/23899) Barriers to learning: Psychological factors;Medical Status (09/22/23899) Method of Education: Verbalized to patient;Patient demonstrated task (09/22/23899) Assessment: Pt is I with bed mob. X-fers [facility] supervision. Gt with straight cane approx 250 ft with close CGA x 1. Walked with and without hand on IV pole. Gt is unsteady either way with mild staggering of feet. Pt left in bed with call light in reach. Instructed pt in how to get in / out of vehicle by sitting first then lifting legs in. Suggested and demonstrated a leg toxicology teacher which pt was interested in. Pt provided with leg toxicology teacher and instructed /demonstrated in use. Deficits requiring P.T. treatment needs: Safety;Mobility;Balance;Weakness;Endurance;Lower extremitystrength (09/22/23899) Plan: Continue with current treatment plan established on evaluation. AM PAC Score with Stairs: 19 * Care Plan - Casie Knott RN - 09/22/2023 5:10 AM EDT Clinical Goal(s): Pt will report adequate pain control throughout shift. (09/21/231999) Possible barriers to meeting goal(s)/advancing plan of care: Admitting Diagnosis Stability of the patient: Moderately stable - low risk of patient condition declining or worsening Summary regarding today's goal(s): Met: Patient reported adequate pain control with use of prn medications this shift. Recommendations: Continue with plan of care. * Care Plan - Alissa Woody RN - 09/21/2023 6:14 PM EDT Clinical Goal(s): Patient will remain free from falls this shift. (09/21/23913) Possible barriers to meeting goal(s)/advancing plan of care: weakness Stability of the patient: Moderately stable - low risk of patient condition declining or worsening Summary regarding today's goal(s): Met: Patient remained free from falls this shift. Recommendations: Maintain fall precautions and encourage patient to get out of bed/ ambulate, as tolerated. * Ancillary Progress Note - Inge Corbett RN - 09/21/2023 2:13 PM EDT CARE MANAGEMENT - ADULT INITIAL SCREENING [address] [address] Name: Chandrika Hogue Location: [facility] [id number]/W Date: 09/21/2023 Time: 2:13 PM Discussed patient with the interdisciplinary care team. This Landfill Gas Collection System Operator performed a chart review and met with patient at bedside to complete admission screen and assessed needs for transition planning. The med care manager role and services were explained and emotional support was provided. Chief Complaint: No chief complaint on file. Prior Living Arrangements What was your living situation prior to admission/observation?: Independently;Alone (09/21/231410) Living Quarters: Apartment (09/21/231410) Number of steps to enter living quarters:: 0 - front, 3 - back (09/21/231410) Do you have serious difficulty walking or climbing stairs? (5 years old or older): Yes (09/20/23 1312) History of falling: Yes (09/21/23 0914) Prior Level of Functioning Describe the patient's ability prior to admission/observation to perform ADLs: Performs independently (09/21/231410) Describe the patient's mobility status prior to admission: Patient ambulates independently (09/21/231410) Patient uses assistive device: Yes (09/21/231410) If yes, choose:: Cane (09/21/231410) Caregiver Information Patient Contacts Name Relation Home Work Mobile Rowdy Hogue [phone] Ariella Acosta Other - (no specific identity) [phone] Margy Phillips Other - (no specific identity) [phone] Risk Stratification/Psychosocial/Care Gaps Risk Stratification Psycho Social / Medical Concerns Identified: Adjustment to illness/injury;Multiple Comorbidities;Chronic Kidney Disease (09/21/231410) Accessed Neighborly to connect patients to social care resources: No (09/21/231410) Readmission Risk Score: 19.75 (09/21/23 1200) AM-PAC Score With Stairs : 19 (09/21/23 1005) Prior to Admission Services Services Prior to Admission DATA COLLECTION TECHNICIAN Services (Services received within the last 30 days with exception, Psych within last two years): Home Infusion (09/21/231410) List All Provider/Service Name: [facility] (09/21/231410) Agency contacted: Yes (09/21/231410) Spoke with - Comment: Porsche (09/21/231410) [place] [employer] [employer] (PDA) Waiver Program: N/A (09/21/231410) DATA COLLECTION TECHNICIAN Transportation (Services received within the last 30 days): Patient drives self;Family/Friends Personal Vehicle (09/21/231410) Outpatient Landfill Gas Collection System Operator: No care hat steamer to display Patient/Family Expectations: home with resumption of services. Patient lives alone independently in an apartment with [address]STE in front and [address] in back. Independentwith ADL's an IADL's. Ambulates with a cane. 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 Receives TPN from [facility]. Goes to [facility] for labs and line care. Patient drives or friend drivesas needed. Verified with Porsche at [facility] patient is active, but currently on hold while in hospital. For further screening information, please refer to the Care Management flow document. * Communication - Susanne Regalado MD - 09/20/2023 3:19 PM EDT Nutrition Support Communication Note: - Recommend to resume home TPN per [facility] note 09/07, 1.2L total volume, at goal macronutrients of 1370 Kcal, 60g amino acids, 200g dextrose, 45g lipids - Start dextrose at 100g due to risk of refeeding - Increase TPN to daily - 24 hour cycle for now - BMP, mag and phos BID - Communicated to pharmacy and hospitalist Case discussed with Dr. Jalloh. Please tigertext with any questions or concerns. Susanne Regalado MD Nutrition and Weight Management documented in this encounter Plan of Treatment Upcoming Encounters Date Type Department Care Team (Late st Contact Info) Description 10/11/2023 3:00 PM EDT Office Visit Family Medicine [address] [address] Li Cano PA-C [address] [place] [address] [place] [address] 10/17/2023 3:20 PM EDT Office Visit Gastroenterology, [facility] [address] [place] [address] Olivia Hernandez MD [address] [facility] [place] [address] 10/23/2023 9:20 AM EDT Office Visit Neurology [facility] [address] [facility] [place] [address] Aris Mohr MD [address] [facility] [place] [address] 11/08/2023 10:20 AM EDT Office Visit Family Medicine [address] [place] [address] Evelyn Andrews MD [address] [place] [address] [place] [address] 12/04/2023 3:45 PM EDT Office Visit Urology, [facility] [place] [address] Christopher Almonte MD [address] [facility] [address] [place] [address] Pending Results Name Type Priority Associated Diagnoses Date /Time MULTIPLE SCLEROSIS PANEL 2 Lab Routine 10/05/2023 10:30 AM EDT MULTIPLE SCLEROSIS PANEL 2 Lab Routine 10/05/2023 11:13 AM EDT MULTIPLE SCLEROSIS, SERUM Lab Routine 10/05/2023 10:30 AM EDT VITAMIN B1 (THIAMINE), BLOOD, LC/MS/MS Lab Routine 10/05/2023 1:35 PM EDT Scheduled Orders Name Type Priority Associated Diagnoses Orde r Schedule CULTURE, RESPIRATORY, UPPER, AEROBIC Lab Routine One Time for 1 Occurrences starting 10/01/2023 until 10/01/2023 MULTIPLE SCLEROSIS PANEL 2 Lab Routine One Time for 1 Occurrences starting 10/02/2023 until 10/02/2023 MULTIPLE SCLEROSIS PANEL 2 Lab Routine Once for 1 Occurrences starting 10/02/2023 until 10/02/2023 MULTIPLE SCLEROSIS, SERUM Lab Routine Once for 1 Occurrences starting 10/02/2023 until 10/02/2023 VITAMIN B1 (THIAMINE), BLOOD, LC/MS/MS Lab Add-on One Time for 1 Occurrences starting 10/05/2023 until 10/05/2023 BODY FLUID INTERPRETATION Lab Routine 10/05/2023 until discontinued, 1 completed Health Maintenance Due Date Last Done Comments [...] 024, 08/23/2022, 09/20/2021 CKD HGB USE SMARTSET 50860 10/08/202410/08, 10/06/2023, 10/05/2023, Additional history exists CKD PHOS USE SMARTSET 65957 10/09/202409/24, 10/09/2023, 10/08/2023, Additional history exists DTaP,Tdap,and [...] this encounter Medical Devices Implanted Type Area Functional Skills Tutor Device Identifier Shelf Expiration Date Model / Serial / Lot Stent Axios 20mm - [id number] Implanted:Qty: 1 on 01/04/2021 by Leyda Garcia MD at OR [facility] N/A: Stomach [employer] : ENDOSCOPY 11/20/2021 [id number] / / [id number] documented as of this encounter Procedures Procedure Name Priority Date/Time Associated Diagnosis Comments GLUCOSE METER, POINT OF CARE EMELIA 10/10/2023 11:26 AM EDT GLUCOSE METER, POINT OF CARE EMELIA 10/10/2023 10:29 AM EDT BASIC METABOLIC PANEL Routine 10/10/2023 10:15 AM EDT GLUCOSE METER, POINT OF CARE EMELIA 10/10/2023 9:04 AM EDT GLUCOSE METER, POINT OF CARE EMELIA 10/10/2023 7:46 AM EDT EXTRA LAVENDER TOP Routine 10/10/2023 4: 08 AM EDT EXTRA TUBES Routine 10/10/2023 4:08 AM EDT BASIC METABOLIC PANEL Routine 10/10/2023 4:08 AM EDT PHOSPHORUS Routine 10/10/2023 4:08 AM EDT MAGNESIUM Routine 10/10/2023 4:08 AM EDT GLUCOSE METER, POINT OF CARE EMELIA 10/09/2023 10:10 PM EDT GLUCOSE METER, POINT OF CARE EMELIA 10/09/2023 4:51 PM EDT GLUCOSE METER, POINT OF CARE EMELIA 10/09/2023 11:54 AM EDT XR CHEST 1 VIEW STAT 10/09/2023 10:53 AM EDT GLUCOSE METER, POINT OF CARE EMELIA 10/09/2023 7:14 AM EDT EXTRA LAVENDER TOP Routine 10/09/2023 4: 20 AM EDT EXTRA TUBES Routine 10/09/2023 4:20 AM EDT CBC Add-on 10/09/2023 4:20 AM EDT BASIC METABOLIC PANEL Routine 10/09/2023 4:19 AM EDT PHOSPHORUS Routine 10/09/2023 4:19 AM EDT MAGNESIUM Routine 10/09/2023 4:19 AM EDT GLUCOSE METER, POINT OF CARE EMELIA 10/08/2023 9:35 PM EDT GLUCOSE METER, POINT OF CARE EMELIA 10/08/2023 4:29 PM EDT GLUCOSE METER, POINT OF CARE EMELIA 10/08/2023 12:36 PM EDT GLUCOSE METER, POINT OF CARE EMELIA 10/08/2023 8:48 AM EDT BASIC METABOLIC PANEL Routine 10/08/2023 4:43 AM EDT PHOSPHORUS Routine 10/08/2023 4:43 AM EDT MAGNESIUM Routine 10/08/2023 4:43 AM EDT EXTRA LAVENDER TOP Routine 10/08/2023 4: 41 AM EDT EXTRA TUBES Routine 10/08/2023 4:41 AM EDT GLUCOSE METER, POINT OF CARE EMELIA 10/07/2023 9:36 PM EDT GLUCOSE METER, POINT OF CARE EMELIA 10/07/2023 4:40 PM EDT GLUCOSE METER, POINT OF CARE EMELIA 10/07/2023 11:59 AM EDT GLUCOSE METER, POINT OF CARE EMELIA 10/07/2023 8:04 AM EDT EXTRA LAVENDER TOP Routine 10/07/2023 5: 01 AM EDT EXTRA TUBES Routine 10/07/2023 5:01 AM EDT BASIC METABOLIC PANEL Routine 10/07/2023 5:01 AM EDT PHOSPHORUS Routine 10/07/2023 5:01 AM EDT MAGNESIUM Routine 10/07/2023 5:01 AM EDT GLUCOSE METER, POINT OF CARE EMELIA 10/06/2023 9:53 PM EDT GLUCOSE METER, POINT OF CARE EMELIA 10/06/2023 4:20 PM EDT XR SHOULDER, 2 OR MORE VIEWS Routine 10/06/2023 1:38 PM EDT GLUCOSE METER, POINT OF CARE EMELIA 10/06/2023 11:17 AM EDT GLUCOSE METER, POINT OF CARE [facility] 10/06/2023 7:18 AM EDT BASIC METABOLIC PANEL Routine 10/06/2023 5:10 AM EDT PHOSPHORUS Routine 10/06/2023 5:10 AM EDT CBC Routine 10/06/2023 5:10 AM EDT MAGNESIUM Routine 10/06/2023 5:10 AM EDT GLUCOSE METER, POINT OF CARE [facility] 10/05/2023 9:41 PM EDT GLUCOSE METER, POINT OF CARE [facility] 10/05/2023 4:17 PM EDT GLUCOSE METER, POINT OF CARE [facility] 10/05/2023 1:13 PM EDT IR LUMBAR PUNCTURE Routine 10/05/2023 12 :15 PM EDT BODY FLUID INTERPRETATION Routine 10/05/2023 11:13 AM EDT MANUAL DIFFERENTIAL, CSF Routine 10/05/2023 11:13 AM EDT CELL COUNT WITH DIFFERENTIAL, CSF Routine 10/05/2023 11:13 AM EDT CELL COUNT, CSF Routine 10/05/2023 11:13 AM EDT PROTEIN, CSF Routine 10/05/2023 11:13 AM EDT GLUCOSE, CSF Routine 10/05/2023 11:13 AM EDT GLUCOSE METER, POINT OF CARE EMELIA 10/05/2023 7:52 AM EDT BASIC METABOLIC PANEL Routine 10/05/2023 5:04 AM EDT PHOSPHORUS Routine 10/05/2023 5:04 AM EDT CBC Routine 10/05/2023 5:04 AM EDT MAGNESIUM Routine 10/05/2023 5:04 AM EDT GLUCOSE METER, POINT OF CARE EMELIA 10/05/2023 12:25 AM EDT GLUCOSE METER, POINT OF CARE EMELIA 10/04/2023 9:25 PM EDT GLUCOSE METER, POINT OF CARE EMELIA 10/04/2023 6:15 PM EDT GLUCOSE METER, POINT OF CARE EMELIA 10/04/2023 4:42 PM EDT GLUCOSE METER, POINT OF CARE EMELIA 10/04/2023 11:39 AM EDT GLUCOSE METER, POINT OF CARE EMELIA 10/04/2023 7:46 AM EDT BASIC METABOLIC PANEL Routine 10/04/2023 6:20 AM EDT PHOSPHORUS Routine 10/04/2023 6:20 AM EDT CBC Routine 10/04/2023 6:20 AM EDT MAGNESIUM Routine 10/04/2023 6:20 AM EDT GLUCOSE METER, POINT OF CARE EMELIA 10/04/2023 6:11 AM EDT GLUCOSE METER, POINT OF CARE EMELIA 10/04/2023 12:21 AM EDT GLUCOSE METER, POINT OF CARE EMELIA 10/03/2023 9:09 PM EDT EXTRA LAVENDER TOP Routine 10/03/2023 5: 39 PM EDT EXTRA TUBES Routine 10/03/2023 5:39 PM EDT BASIC METABOLIC PANEL Routine 10/03/2023 5:29 PM EDT PHOSPHORUS Routine 10/03/2023 5:29 PM EDT MAGNESIUM Routine 10/03/2023 5:29 PM EDT GLUCOSE METER, POINT OF CARE EMELIA 10/03/2023 4:44 PM EDT GLUCOSE METER, POINT OF CARE EMELIA 10/03/2023 11:31 AM EDT ECHO, COMPLETE (2D), TRANS-THORACIC Routine 10/03/2023 9:40 AM EDT Heart failure (HCC) GLUCOSE METER, POINT OF CARE EMELIA 10/03/2023 7:18 AM EDT EXTRA LAVENDER TOP Routine 10/03/2023 4: 53 AM EDT EXTRA TUBES Routine 10/03/2023 4:53 AM EDT HEMOGLOBIN A1C Routine 10/03/2023 4:53 AM EDT MANGANESE, BLOOD Routine 10/03/2023 4:53 AM EDT BASIC METABOLIC PANEL Routine 10/03/2023 4:53 AM EDT PHOSPHORUS Routine 10/03/2023 4:53 AM EDT CALCIUM, IONIZED Routine 10/03/2023 4:53 AM EDT CBC Add-on 10/03/2023 4:53 AM EDT MAGNESIUM Routine 10/03/2023 4:53 AM EDT GLUCOSE METER, POINT OF CARE EMELIA 10/03/2023 3:37 AM EDT GLUCOSE METER, POINT OF CARE EMELIA 10/02/2023 11:14 PM EDT GLUCOSE METER, POINT OF CARE EMELIA 10/02/2023 9:28 PM EDT GLUCOSE METER, POINT OF CARE EMELIA 10/02/2023 8:11 PM EDT GLUCOSE METER, POINT OF CARE EMELIA 10/02/2023 7:09 PM EDT GLUCOSE METER, POINT OF CARE EMELIA 10/02/2023 6:19 PM EDT BLOOD GAS, ARTERIAL STAT 10/02/2023 5 :51 PM EDT XR CHEST 1 VIEW STAT 10/02/2023 5:49 PM EDT GLUCOSE METER, POINT OF CARE [facility] 10/02/2023 5:41 PM EDT GLUCOSE METER, POINT OF CARE EMELIA 10/02/2023 5:18 PM EDT MRI T SPINE W WO CONTRAST Routine 10/02/2023 5:00 PM EDT GLUCOSE METER, POINT OF CARE EMELIA 10/02/2023 2:18 PM EDT GLUCOSE METER, POINT OF CARE EMELIA 10/02/2023 12:05 PM EDT GLUCOSE METER, POINT OF CARE EMELIA 10/02/2023 6:45 AM EDT PROCALCITONIN Routine 10/02/2023 6:13 AM EDT BASIC METABOLIC PANEL Routine 10/02/2023 6:13 AM EDT FOLIC ACID Add-on 10/02/2023 6:13 AM EDT IRON SCREEN, INCLUDING TIBC Add-on 10/02/2023 6:13 AM EDT PHOSPHORUS Routine 10/02/2023 6:13 AM EDT CALCIUM, IONIZED Routine 10/02/2023 6:13 AM EDT MAGNESIUM Routine 10/02/2023 6:13 AM EDT VITAMIN B12 Add-on 10/02/2023 6:13 AM EDT EXTRA LAVENDER TOP Routine 10/02/2023 6: 08 AM EDT EXTRA TUBES Routine 10/02/2023 6:08 AM EDT CBC Add-on 10/02/2023 6:08 AM EDT BLOOD GAS, ARTERIAL Routine 10/02/2023 6 :05 AM EDT GLUCOSE METER, POINT OF CARE EMELIA 10/02/2023 12:26 AM EDT BLOOD GAS, ARTERIAL STAT 10/02/2023 1 2:07 AM EDT XR CHEST 1 VIEW STAT 10/01/2023 11:18 PM EDT CBC Routine 10/01/2023 9:48 PM EDT GLUCOSE METER, POINT OF CARE EMELIA 10/01/2023 5:34 PM EDT MRSA SCREEN, PCR Routine 10/01/2023 2:03 PM EDT LEGIONELLA ANTIGEN, URINE Routine 10/01/2023 2:03 PM EDT CBC Routine 10/01/2023 12:27 PM EDT GLUCOSE METER, POINT OF CARE EMELIA 10/01/2023 11:22 AM EDT TRANSFUSE PACKED RED BLOOD CELLS Routine 10/01/2023 9:09 AM EDT TYPE AND SCREEN Routine 10/01/2023 7:36 AM EDT CBC Routine 10/01/2023 7:36 AM EDT GLUCOSE METER, POINT OF CARE EMELIA 10/01/2023 6:15 AM EDT HC COMPATIBILITY ELECTRONIC CROSSMATCH Routine 10/01/2023 5:55 AM EDT LACTATE Routine 10/01/2023 5:37 AM EDT BLOOD GAS, ARTERIAL STAT 10/01/2023 5 :11 AM EDT XR CHEST 1 VIEW Routine 10/01/2023 5:03 AM EDT CULTURE, BLOOD STAT 10/01/2023 4:50 AM EDT EXTRA LIGHT BLUE TOP Routine 10/01/2023 4:48 AM EDT EXTRA TUBES Routine 10/01/2023 4:48 AM EDT PROCALCITONIN Add-on 10/01/2023 4:39 AM EDT BNP (NT-PROBNP) Add-on 10/01/2023 4:39 AM EDT BASIC METABOLIC PANEL STAT 10/01/2023 4:39 AM EDT PHOSPHORUS Routine 10/01/2023 4:39 AM EDT CULTURE, BLOOD Routine 10/01/2023 4:39 AM EDT CBC STAT 10/01/2023 4:39 AM EDT MAGNESIUM Routine 10/01/2023 4:39 AM EDT RESPIRATORY PATHOGEN PANEL, PCR STAT 10/01/2023 3:53 AM EDT GLUCOSE METER, POINT OF CARE EMELIA 10/01/2023 12:32 AM EDT HC ECG TRACING ONLY Routine 10/01/2023 1 2:18 AM EDT Chest pain XR CHEST 1 VIEW STAT 10/01/2023 12:17 AM EDT TROPONIN T, HIGH SENSITIVITY Routine 10/01/2023 12:07 AM EDT GLUCOSE METER, POINT OF CARE EMELIA 09/30/2023 6:41 PM EDT GLUCOSE METER, POINT OF CARE EMELIA 09/30/2023 11:58 AM EDT GLUCOSE METER, POINT OF CARE EMELIA 09/30/2023 5:58 AM EDT BASIC METABOLIC PANEL Routine 09/30/2023 4:24 AM EDT PHOSPHORUS Routine 09/30/2023 4:24 AM EDT MAGNESIUM Routine 09/30/2023 4:24 AM EDT EXTRA LAVENDER TOP Routine 09/30/2023 4: 19 AM EDT EXTRA TUBES Routine 09/30/2023 4:19 AM EDT GLUCOSE METER, POINT OF CARE EMELIA 09/29/2023 11:53 PM EDT GLUCOSE METER, POINT OF CARE EMELIA 09/29/2023 5:29 PM EDT US RENAL Routine 09/29/2023 4:15 PM EDT GLUCOSE METER, POINT OF CARE EMELIA 09/29/2023 11:54 AM EDT GLUCOSE METER, POINT OF CARE EMELIA 09/29/2023 5:56 AM EDT BASIC METABOLIC PANEL Routine 09/29/2023 4:18 AM EDT PHOSPHORUS Routine 09/29/2023 4:18 AM EDT MAGNESIUM Routine 09/29/2023 4:18 AM EDT EXTRA LAVENDER TOP Routine 09/29/2023 4: 15 AM EDT EXTRA TUBES Routine 09/29/2023 4:15 AM EDT GLUCOSE METER, POINT OF CARE EMELIA 09/29/2023 12:06 AM EDT GLUCOSE METER, POINT OF CARE EMELIA 09/28/2023 6:15 PM EDT GLUCOSE METER, POINT OF CARE EMELIA 09/28/2023 11:22 AM EDT HC ECG TRACING ONLY STAT 09/28/2023 7 :22 AM EDT Chest pain GLUCOSE METER, POINT OF CARE EMELIA 09/28/2023 6:23 AM EDT EXTRA LAVENDER TOP Routine 09/28/2023 5: 13 AM EDT EXTRA TUBES Routine 09/28/2023 5:13 AM EDT BASIC METABOLIC PANEL Routine 09/28/2023 5:13 AM EDT PHOSPHORUS Routine 09/28/2023 5:13 AM EDT MAGNESIUM Routine 09/28/2023 5:13 AM EDT GLUCOSE METER, POINT OF CARE EMELIA 09/28/2023 12:20 AM EDT GLUCOSE METER, POINT OF CARE EMELIA 09/27/2023 6:26 PM EDT US PELVIS TRANS-ABDOMINAL Routine 09/27/2023 12:08 PM EDT GLUCOSE METER, POINT OF CARE EMELIA 09/27/2023 11:49 AM EDT EXTRA LAVENDER TOP Routine 09/27/2023 6: 08 AM EDT EXTRA TUBES Routine 09/27/2023 6:08 AM EDT HEPATIC FUNCTION PANEL Routine 6:08 AM EDT BASIC METABOLIC PANEL Routine 09/27/2023 6:08 AM EDT PHOSPHORUS Routine 09/27/2023 6:08 AM EDT CALCIUM, IONIZED Routine 09/27/2023 6:08 AM EDT TRIGLYCERIDES Routine 09/27/2023 6:08 AM EDT MAGNESIUM Routine 09/27/2023 6:08 AM EDT GLUCOSE METER, POINT OF CARE EMELIA 09/27/2023 6:05 AM EDT GLUCOSE METER, POINT OF CARE EMELIA 09/27/2023 12:48 AM EDT GLUCOSE METER, POINT OF CARE EMELIA 09/26/2023 5:09 PM EDT GLUCOSE METER, POINT OF CARE EMELIA 09/26/2023 11:43 AM EDT GLUCOSE METER, POINT OF CARE EMELIA 09/26/2023 6:53 AM EDT EXTRA LAVENDER TOP Routine 09/26/2023 6: 44 AM EDT EXTRA TUBES Routine 09/26/2023 6:44 AM EDT BASIC METABOLIC PANEL Routine 09/26/2023 6:44 AM EDT PHOSPHORUS Routine 09/26/2023 6:44 AM EDT MAGNESIUM Routine 09/26/2023 6:44 AM EDT GLUCOSE METER, POINT OF CARE EMELIA 09/26/2023 12:11 AM EDT GLUCOSE METER, POINT OF CARE EMELIA 09/25/2023 6:27 PM EDT GLUCOSE METER, POINT OF CARE EMELIA 09/25/2023 12:09 PM EDT XR ABDOMEN 1 VIEW Routine 09/25/2023 9:0 7 AM EDT GLUCOSE METER, POINT OF CARE EMELIA 09/25/2023 8:13 AM EDT BASIC METABOLIC PANEL Routine 09/25/2023 6:37 AM EDT PHOSPHORUS Routine 09/25/2023 6:37 AM EDT MAGNESIUM Routine 09/25/2023 6:37 AM EDT EXTRA LAVENDER TOP Routine 09/25/2023 6: 35 AM EDT EXTRA TUBES Routine 09/25/2023 6:35 AM EDT GLUCOSE METER, POINT OF CARE EMELIA 09/25/2023 6:27 AM EDT GLUCOSE METER, POINT OF CARE EMELIA 09/25/2023 12:01 AM EDT GLUCOSE METER, POINT OF CARE EMELIA 09/24/2023 5:31 PM EDT URINALYSIS, REFLEX TO MICROSCOPIC Routine 09/24/2023 1:02 PM EDT GLUCOSE METER, POINT OF CARE EMELIA 09/24/2023 11:47 AM EDT GLUCOSE METER, POINT OF CARE EMELIA 09/24/2023 6:11 AM EDT BASIC METABOLIC PANEL Routine 09/24/2023 5:34 AM EDT PHOSPHORUS Routine 09/24/2023 5:34 AM EDT MAGNESIUM Routine 09/24/2023 5:34 AM EDT EXTRA LAVENDER TOP Routine 09/24/2023 5: 32 AM EDT EXTRA TUBES Routine 09/24/2023 5:32 AM EDT GLUCOSE METER, POINT OF CARE [facility] 09/24/2023 12:12 AM EDT GLUCOSE METER, POINT OF CARE EMELIA 09/23/2023 6:22 PM EDT VITAMIN B1 (THIAMINE), BLOOD, LC/MS/MS Routine 09/23/2023 12:53 PM EDT ZINC Routine 09/23/2023 12:53 PM EDT VITAMIN K Routine 09/23/2023 12:53 PM EDT COPPER, SERUM OR PLASMA Routine 09/23/2023 12:53 PM EDT VITAMIN E (TOCOPHEROL) Routine 12:52 PM EDT VITAMIN A (RETINOL) Routine 09/23/2023 1 2:51 PM EDT METHYLMALONIC ACID, SERUM Routine 09/23/2023 12:51 PM EDT BASIC METABOLIC PANEL Routine 09/23/2023 12:49 PM EDT PHOSPHORUS Routine 09/23/2023 12:49 PM EDT MAGNESIUM Routine 09/23/2023 12:49 PM EDT GLUCOSE METER, POINT OF CARE EMELIA 09/23/2023 11:08 AM EDT GLUCOSE METER, POINT OF CARE EMELIA 09/23/2023 5:35 AM EDT GLUCOSE METER, POINT OF CARE EMELIA 09/23/2023 12:10 AM EDT GLUCOSE METER, POINT OF CARE EMELIA 09/22/2023 7:01 PM EDT GLUCOSE METER, POINT OF CARE EMELIA 09/22/2023 12:32 PM EDT 25-HYDROXY VITAMIN D Add-on 09/22/2023 8:32 AM EDT BASIC METABOLIC PANEL Routine 09/22/2023 8:32 AM EDT FOLIC ACID Add-on 09/22/2023 8:32 AM EDT IRON SCREEN, INCLUDING TIBC Add-on 09/22/2023 8:32 AM EDT PHOSPHORUS Routine 09/22/2023 8:32 AM EDT MAGNESIUM Routine 09/22/2023 8:32 AM EDT FERRITIN Add-on 09/22/2023 8:32 AM EDT VITAMIN B12 Add-on 09/22/2023 8:32 AM EDT GLUCOSE METER, POINT OF CARE EMELIA 09/22/2023 6:33 AM EDT GLUCOSE METER, POINT OF CARE EMELIA 09/22/2023 12:03 AM EDT GLUCOSE METER, POINT OF CARE EMELIA 09/21/2023 6:35 PM EDT GLUCOSE METER, POINT OF CARE [facility] 09/21/2023 12:27 PM EDT BASIC METABOLIC PANEL Routine 09/21/2023 11:28 AM EDT PHOSPHORUS Routine 09/21/2023 11:28 AM EDT CALCIUM, IONIZED Routine 09/21/2023 11:2 8 AM EDT CBC Routine 09/21/2023 11:28 AM EDT MAGNESIUM Routine 09/21/2023 11:28 AM EDT GLUCOSE METER, POINT OF CARE [facility] 09/21/2023 8:01 AM EDT GLUCOSE METER, POINT OF CARE [facility] 09/21/2023 12:39 AM EDT [place] ECG ROUTINE ECG W/LEAST 12 LDS I&R ONLY Routine 09/20/2023 3:28 PM EDT Electrolyte abnormality SARS-COV-2 (COVID-19), NAAT STAT 09/20/2023 2:49 PM EDT XR CHEST 1 VIEW Routine 09/20/2023 2:45 PM EDT documented in this encounter Results * (ABNORMAL) GLUCOSE METER, POINT OF CARE (10/10/2023 11:26 AM EDT) [facility] Glucose Meter 146(H) 70 - 120 mg/dL 10/10/2023 12:29 PM EDT [facility] Blood Whole blood specimen / Unknown 10/10/2023 11:26 AM EDT 10/10/2023 12:29 PM EDT Ishmail PlayerLync DO LAB POINT OF CARE TE ST DOCKED DEVICE UNSOLICITED RESULTS Performing Organization Address City/[facility]/ZIP Co de Phone Number [facility] [address] [facility] [place] [address] * (ABNORMAL) GLUCOSE METER, POINT OF CARE (10/10/2023 10:29 AM EDT) Glucose Meter 237(H) 70 - 120 mg/dL 10/10/2023 10:32 AM EDT [facility] Blood Whole blood specimen / Unknown 10/10/2023 10:29 AM EDT 10/10/2023 10:32 AM EDT [facility] CarePumpUptx DO LAB POINT OF CARE TE ST DOCKED DEVICE UNSOLICITED RESULTS Performing Organization Address [facility] Co de Phone Number [facility] [address] [facility] [place] [address] * (ABNORMAL) BASIC METABOLIC PANEL (10/10/2023 10:15 AM EDT) BUN 49(H) 6 - 20 mg/dL 10/10/2023 11:48 AM EDT LAB[facility]ATORY [facility] Creatinine 1.1(H) 0.5 - 1.0 mg/dL 10/10/2023 11:48 AM EDT [facility]ATORY [facility] Estimated Glomerular Filtration Rate 59(L) >=60 mL/min 10/10/2023 11:48 AM EDT [facility] Comment:eGFR is calculated b ased on the CKD-EPI 2020 equation Sodium 141 135 - 146 mmol/L 10/10/2023 11:48 AM EDT [facility]ORY [facility] Potassium 3.6 3.5 - 5.1 mmol/L 10/10/2023 11:48 AM EDT [facility]ORY [facility] Chloride 104 98 - 107 mmol/L 10/10/2023 11:48 AM EDT [facility]ORY [facility] CO2 24 22 - 32 mmol/L 10/10/2023 11:48 AM EDT [facility]ORY [facility] Anion Gap 13 7 - 15 mmol/L 10/10/2023 11:48 AM EDT [facility]ORY [facility] Glucose 161(H) 70 - 120 mg/dL 10/10/2023 11:48 AM EDT [facility]ORY [facility] Calcium 8.1(L) 8.4 - 10.2 mg/dL 10/10/2023 11:48 AM EDT [facility] Blood Venous blood specimen / Unknown 10/10/2023 10:15 AM EDT 10/10/2023 10:29 AM EDT IshJust Fab DO LAB BLOOD ORDERABLES Performing Organization Address [facility] Co de Phone Number [facility]AT[facility] [address], [place] [id number] * (ABNORMAL) GLUCOSE METER, POINT OF CARE (10/10/2023 9:04 AM EDT) Glucose Meter 283(H) 70 - 120 mg/dL 10/10/2023 9:08 AM EDT [facility] Blood Whole blood specimen / Unknown 10/10/2023 9:04 AM EDT 10/10/2023 9:08 AM EDT Gallery AlSharqtx DO LAB POINT OF CARE TE ST DOCKED DEVICE UNSOLICITED RESULTS Performing Organization Address [facility] de Phone Number [facility] [address] [place] [phone] * GLUCOSE METER, POINT OF CARE (10/10/2023 7:46 AM EDT) Glucose Meter 107 70 - 120 mg/dL 10/10/2023 7:51 AM EDT [facility] Blood Whole blood specimen / Unknown 10/10/2023 7:46 AM EDT 10/10/2023 7:51 AM EDT IshTracouril PlayerLync DO LAB POINT OF CARE TE ST DOCKED DEVICE UNSOLICITED RESULTS Performing Organization Address [facility] de Phone Number [facility] [address] [place] [phone] * EXTRA LAVENDER TOP (10/10/2023 4:08 AM EDT) Blood Venous blood specimen / Unknown 10/10/2023 4:08 AM EDT 10/10/2023 4:29 AM EDT Juan Zaragoza LAB BLOOD ORDERABLES Performing Organization Address [facility] Co de Phone Number LABORATORY [address] [address] * (ABNORMAL) MAGNESIUM (10/10/2023 4:08 AM EDT) Magnesium 1.4(L) 1.5 - 2.6 mg/dL 10/10/2023 4:46 AM EDT LABORATORY [facility] Blood Venous blood specimen / Unknown Venipuncture / Unknown 10/10/2023 4:08 AM EDT 10/10/2023 4:29 AM EDT Min Min Suzie SNIDER LAB BLOOD ORDERABLES Performing Organization Address [facility] de Phone Number LABORATORY [address] [address] * PHOSPHORUS (10/10/2023 4:08 AM EDT) Phosphorus 4.1 2.5 - 4.8 mg/dL 10/10/2023 4:46 AM EDT LABORATORY [facility] Blood Venous blood specimen / Unknown Venipuncture / Unknown 10/10/2023 4:08 AM EDT 10/10/2023 4:29 AM EDT Min Min Suzie SNIDER LAB BLOOD ORDERABLES Performing Organization Address [facility] de Phone Number LABORATORY [address] [address] * (ABNORMAL) BASIC METABOLIC PANEL (10/10/2023 4:08 AM EDT) BUN 50(H) 6 - 20 mg/dL 10/10/2023 4:46 AM EDT LABORATORY [facility] Creatinine 1.1(H) 0.5 - 1.0 mg/dL 10/10/2023 4:46 AM EDT [facility]ATORY [facility] Estimated Glomerular Filtration Rate 59(L) >=60 mL/min 10/10/2023 4:46 AM EDT [facility] Comment:eGFR is calculated b ased on the CKD-EPI 2020 equation Sodium 140 135 - 146 mmol/L 10/10/2023 4:46 AM EDT [facility]ORY [facility] Potassium 5.7(H) 3.5 - 5.1 mmol/L 10/10/2023 4:46 AM EDT [facility] Chloride 104 98 - 107 mmol/L 10/10/2023 4:46 AM EDT [facility]ORY [facility] CO2 23 22 - 32 mmol/L 10/10/2023 4:46 AM EDT [facility] Anion Gap 13 7 - 15 mmol/L 10/10/2023 4:46 AM EDT [facility] Glucose 102 70 - 120 mg/dL 10/10/2023 4:46 AM EDT [facility]ORY [facility] Calcium 8.2(L) 8.4 - 10.2 mg/dL 10/10/2023 4:46 AM EDT [facility] Blood Venous blood specimen / Unknown Venipuncture / Unknown 10/10/2023 4:08 AM EDT 10/10/2023 4:29 AM EDT Min Min Suzie SNIDER LAB BLOOD ORDERABLES Performing Organization Address [facility]/ZIP Co de Phone Number [facility]ATORY [facility] [address] [place] [phone] * GLUCOSE METER, POINT OF CARE (10/09/2023 10:10 PM EDT) [facility] Glucose Meter 90 70 - 120 mg/dL 10/09/2023 10:16 PM EDT [facility] Blood Whole blood specimen / Unknown 10/09/2023 10:10 PM EDT 10/09/2023 10:15 PM EDT Juan Zaragoza DO LAB POINT OF CARE TE ST DOCKED DEVICE UNSOLICITED RESULTS Performing Organization Address City/[facility] Co de Phone Number [facility] [address] [place] [phone] * GLUCOSE METER, POINT OF CARE (10/09/2023 4:51 PM EDT) Glucose Meter 97 70 - 120 mg/dL 10/09/2023 5:11 PM EDT [facility] Blood Whole blood specimen / Unknown 10/09/2023 4:51 PM EDT 10/09/2023 5:11 PM EDT Juan Zaragoza DO LAB POINT OF CARE TE ST DOCKED DEVICE UNSOLICITED RESULTS Performing Organization Address City/[facility] Co de Phone Number [facility] [address] [place] [address] * GLUCOSE METER, POINT OF CARE (10/09/2023 11:54 AM EDT) Glucose Meter 98 70 - 120 mg/dL 10/09/2023 12:10 PM EDT [facility] Blood Whole blood specimen / Unknown 10/09/2023 11:54 AM EDT 10/09/2023 12:10 PM EDT Juan Zaragoza DO LAB POINT OF CARE TE ST DOCKED DEVICE UNSOLICITED RESULTS Performing Organization Address [facility] de Phone Number [facility] [address] [place] [address] * XR CHEST 1 VIEW (10/09/2023 10:53 AM EDT) Anatomical Region Laterality Modality Chest Digital Radiogra phy 10/09/2023 10:3 8 AM EDT Impressions 10/09/2023 11:10 AM EDT IMPRESSION: The diffuse ground-glass and interstitial opacities bilaterally, greater on the right have mildly improved on the right. THIS DOCUMENT HAS BEEN ELECTRONICALLY SIGNED BY TRINH MARTINEZ DO Narrative 10/09/2023 11:10 AM EDT PROCEDURE INFORMATION: Exam: XR Chest Exam date and time: 10/09/2023 10:38 AM Age: 58 years old Clinical indication: Other: F/u mf airspace disease TECHNIQUE: Imaging protocol: Radiologic exam of the chest. Views: 1 view. COMPARISON: DX XR CHEST 1 VIEW 10/02/2023 5:42 PM FINDINGS: Tubes, catheters and devices: None. Lungs: There are diffuse ground-glass and interstitial opacities seen bilaterally, greater on the right which have mildly improved on the right. Pleural spaces: No significant pleural effusion or pneumothorax. Heart/Mediastinum: No cardiomegaly. Bones/joints: Degenerative changes are seen in the spine, which is markedly scoliotic. Procedure Note Trinh Martinez DO - 10/09/2023 PROCEDURE INFORMATION: Exam: XR Chest Exam date and time: 10/09/2023 10:38 AM Age: 58 years old Clinical indication: Other: F/u mf airspace disease TECHNIQUE: Imaging protocol: Radiologic exam of the chest. Views: 1 view. COMPARISON: DX XR CHEST 1 VIEW 10/02/2023 5:42 PM FINDINGS: Tubes, catheters and devices: None. Lungs: There are diffuse ground-glass and interstitial opacities seen bilaterally, greater on the right which have mildly improved on theright. Pleural spaces: No significant pleural effusion or pneumothorax. Heart/Mediastinum: No cardiomegaly. Bones/joints: Degenerative changes are seen in the spine, which ismarkedly scoliotic. IMPRESSION IMPRESSION: The diffuse ground-glass and interstitial opacities bilaterally, greateron the right have mildly improved on the right. THIS DOCUMENT HAS BEEN ELECTRONICALLY SIGNED BY TRINH MARTINEZ DO Jovanny Wilson PA-C RADIOLOGY (RAD GENER AL) * (ABNORMAL) GLUCOSE METER, POINT OF CARE (10/09/2023 7:14 AM EDT) Glucose Meter 128(H) 70 - 120 mg/dL 10/09/2023 8:32 AM EDT [facility] Blood Whole blood specimen / Unknown 10/09/2023 7:14 AM EDT 10/09/2023 8:32 AM EDT Juan Zaragoza DO LAB POINT OF CARE TE ST DOCKED DEVICE UNSOLICITED RESULTS [facility] [address] [place] [address] * (ABNORMAL) CBC (10/09/2023 4:20 AM EDT) Pathologist [facility] WBC 7.81 4.00 - 10.80 K/uL 10/09/2023 7:32 AM EDT LABORATORY [facility] RBC 2.65 3.85 - 5.15 M/uL 10/09/2023 7:32 AM EDT LABORATORY [facility] HGB 8.0(L) 12.0 - 15.3 g/dL 10/09/2023 7:32 AM EDT LABORATORY [facility] HCT 26.8(L) 36.0 - 45.2 % 10/09/2023 7:32 AM EDT LABORATORY [facility] MCV 101.1 81.5 - 97.5 fL 10/09/2023 7:32 AM EDT LABORATORY [facility] MCH 30.2 27.0 - 34.0 pg 10/09/2023 7:32 AM EDT LABORATORY [facility] MCHC 29.9 32.0 - 36.0 g/dL 10/09/2023 7:32 AM EDT LABORATORY [facility] RDW 16.0 11.5 - 15.5 % 10/09/2023 7:32 AM EDT LABORATORY [facility] PLT 385 140 - 400 K/uL 10/09/2023 7:32 AM EDT LABORATORY [facility] MPV 12.7 6.6 - 11.1 fL 10/09/2023 7:32 AM EDT LABORATORY [facility] nRBCs 0 <=0 /100 WBCs 10/09/2023 7:32 AM EDT LABORATORY [facility] Blood Venous blood specimen / Unknown 10/09/2023 4:20 AM EDT 10/09/2023 4:28 AM EDT Juan Zaragoza DO LAB BLOOD ORDERABLES LABORATORY [facility] [address] [place] [address] * EXTRA LAVENDER TOP (10/09/2023 4:20 AM EDT) Blood Venous blood specimen / Unknown 10/09/2023 4:20 AM EDT 10/09/2023 4:28 AM EDT Juan Zaragoza DO LAB BLOOD ORDERABLES Performing Organization Address City/[facility]/ZIP Co de Phone Number LABORATORY [address] [address] * MAGNESIUM (10/09/2023 4:19 AM EDT) Magnesium 1.8 1.5 - 2.6 mg/dL 10/09/2023 5:24 AM EDT LABORATORY [facility] Blood Venous blood specimen / Unknown Venipuncture / Unknown 10/09/2023 4:19 AM EDT 10/09/2023 4:28 AM EDT Min Min Suzie SNIDER LAB BLOOD ORDERABLES Performing Organization Address [facility] Co de Phone Number LABORATORY [address] [address] * PHOSPHORUS (10/09/2023 4:19 AM EDT) Phosphorus 3.6 2.5 - 4.8 mg/dL 10/09/2023 5:24 AM EDT LABORATORY [facility] Blood Venous blood specimen / Unknown Venipuncture / Unknown 10/09/2023 4:19 AM EDT 10/09/2023 4:28 AM EDT Min Min Suzie SNIDER LAB BLOOD ORDERABLES Performing Organization Address City/[facility] Co de Phone Number LABORATORY [address] [address] * (ABNORMAL) BASIC METABOLIC PANEL (10/09/2023 4:19 AM EDT) BUN 53(H) 6 - 20 mg/dL 10/09/2023 5:24 AM EDT LABORATORY [facility] Creatinine 0.9 0.5 - 1.0 mg/dL 10/09/2023 5:24 AM EDT LABORATORY [facility] Estimated Glomerular Filtration Rate 71 >=60 mL/min 10/09/2023 5:24 AM EDT LABORATORY [facility] Comment:eGFR is calculated b ased on the CKD-EPI 2020 equation Sodium 145 135 - 146 mmol/L 10/09/2023 5:24 AM EDT LAB[facility]ATORY [facility] Potassium 5.1 3.5 - 5.1 mmol/L 10/09/2023 5:24 AM EDT [facility] Chloride 107 98 - 107 mmol/L 10/09/2023 5:24 AM EDT LAB[facility]ORY [facility] CO2 30 22 - 32 mmol/L 10/09/2023 5:24 AM EDT [facility] Anion Gap 8 7 - 15 mmol/L 10/09/2023 5:24 AM EDT [facility] Glucose 139(H) 70 - 120 mg/dL 10/09/2023 5:24 AM EDT [facility] Calcium 8.6 8.4 - 10.2 mg/dL 10/09/2023 5:24 AM EDT [facility] Blood Venous blood specimen / Unknown Venipuncture / Unknown 10/09/2023 4:19 AM EDT 10/09/2023 4:28 AM EDT Min Min Suzie SNIDER LAB BLOOD ORDERABLES LABORATORY [address] [address] * (ABNORMAL) GLUCOSE METER, POINT OF CARE (10/08/2023 9:35 PM EDT) Glucose Meter 140(H) 70 - 120 mg/dL 10/08/2023 10:17 PM EDT [facility] Blood Whole blood specimen / Unknown 10/08/2023 9:35 PM EDT 10/08/2023 10:17 PM EDT Juan Zaragoza DO LAB POINT OF CARE TE ST DOCKED DEVICE UNSOLICITED RESULTS [facility] [address] [place] [phone] * (ABNORMAL) GLUCOSE METER, POINT OF CARE (10/08/2023 4:29 PM EDT) Glucose Meter 207(H) 70 - 120 mg/dL 10/08/2023 5:33 PM EDT [facility] Blood Whole blood specimen / Unknown 10/08/2023 4:29 PM EDT 10/08/2023 5:33 PM EDT Ishmail Saccoh DO LAB POINT OF CARE TE ST DOCKED DEVICE UNSOLICITED RESULTS Performing Organization Address [facility] Co de Phone Number [facility] [address] [place] [address] * (ABNORMAL) GLUCOSE METER, POINT OF CARE (10/08/2023 12:36 PM EDT) Glucose Meter 136(H) 70 - 120 mg/dL 10/08/2023 12:49 PM EDT [facility] Blood Whole blood specimen / Unknown 10/08/2023 12:36 PM EDT 10/08/2023 12:48 PM EDT Ishmail Saccoh DO LAB POINT OF CARE TE ST DOCKED DEVICE UNSOLICITED RESULTS Performing Organization Address [facility] Phone Number [facility] [address] [place] [address] * (ABNORMAL) GLUCOSE METER, POINT OF CARE (10/08/2023 8:48 AM EDT) Glucose Meter 156(H) 70 - 120 mg/dL 10/08/2023 9:15 AM EDT [facility] Blood Whole blood specimen / Unknown 10/08/2023 8:48 AM EDT 10/08/2023 9:15 AM EDT Ishmail Saccoh DO LAB POINT OF CARE TE ST DOCKED DEVICE UNSOLICITED RESULTS Performing Organization Address [facility] de Phone Number [facility] [address] [place] [address] * MAGNESIUM (10/08/2023 4:43 AM EDT) Magnesium 1.9 1.5 - 2.6 mg/dL 10/08/2023 5:38 AM EDT LABORATORY [facility] Blood Venous blood specimen / Unknown Venipuncture / Unknown 10/08/2023 4:43 AM EDT 10/08/2023 5:06 AM EDT Min Min Suzie SNIDER LAB BLOOD ORDERABLES Performing Organization Address City/[facility]/ZIP Co de Phone Number LABORATORY [facility] [address] [place] [address] * PHOSPHORUS (10/08/2023 4:43 AM EDT) Phosphorus 3.5 2.5 - 4.8 mg/dL 10/08/2023 5:38 AM EDT LABORATORY [facility] Blood Venous blood specimen / Unknown Venipuncture / Unknown 10/08/2023 4:43 AM EDT 10/08/2023 5:06 AM EDT Min Min Suzie SNIDER LAB BLOOD ORDERABLES Performing Organization Address [facility] de Phone Number LABORATORY [address] [address] * (ABNORMAL) BASIC METABOLIC PANEL (10/08/2023 4:43 AM EDT) BUN 50(H) 6 - 20 mg/dL 10/08/2023 5:38 AM EDT LABORATORY GL Creatinine 1.0 0.5 - 1.0 mg/dL 10/08/2023 5:38 AM EDT LABORATORY GL Estimated Glomerular Filtration Rate 69 >=60 mL/min 10/08/2023 5:38 AM EDT LABORATORY [facility] Comment:eGFR is calculated b ased on the CKD-EPI 2020 equation Sodium 143 135 - 146 mmol/L 10/08/2023 5:38 AM EDT LABORATORY [facility] Potassium 5.1 3.5 - 5.1 mmol/L 10/08/2023 5:38 AM EDT LABORATORY [facility] Chloride 106 98 - 107 mmol/L 10/08/2023 5:38 AM EDT LABORATORY [facility] CO2 28 22 - 32 mmol/L 10/08/2023 5:38 AM EDT LABORATORY [facility] Anion Gap 9 7 - 15 mmol/L 10/08/2023 5:38 AM EDT LABORATORY [facility] Glucose 140(H) 70 - 120 mg/dL 10/08/2023 5:38 AM EDT LABORATORY [facility] Calcium 8.5 8.4 - 10.2 mg/dL 10/08/2023 5:38 AM EDT LABORATORY [facility] Blood Venous blood specimen / Unknown Venipuncture / Unknown 10/08/2023 4:43 AM EDT 10/08/2023 5:06 AM EDT Min Alen Larsen MD LAB BLOOD ORDERABLES LABORATORY [facility] [address] [place] [address] * EXTRA LAVENDER TOP (10/08/2023 4:41 AM EDT) Blood Venous blood specimen / Unknown Venipuncture / Unknown 10/08/2023 4:41 AM EDT 10/08/2023 5:06 AM EDT LanTracourcharlette PlayerLync DO LAB BLOOD ORDERABLES Performing Organization Address City/[facility] Co de Phone Number LABORATORY [facility] [address] [place] [address] * (ABNORMAL) GLUCOSE METER, POINT OF CARE (10/07/2023 9:36 PM EDT) Glucose Meter 134(H) 70 - 120 mg/dL 10/07/2023 10:35 PM EDT [facility] Blood Whole blood specimen / Unknown 10/07/2023 9:36 PM EDT 10/07/2023 10:34 PM EDT extraTKTil PlayerLync DO LAB POINT OF CARE TE ST DOCKED DEVICE UNSOLICITED RESULTS Performing Organization Address [facility] Co de Phone Number [facility] [address] [place] [id number] * (ABNORMAL) GLUCOSE METER, POINT OF CARE (10/07/2023 4:40 PM EDT) Glucose Meter 191(H) 70 - 120 mg/dL 10/07/2023 4:59 PM EDT [facility] Blood Whole blood specimen / Unknown 10/07/2023 4:40 PM EDT 10/07/2023 4:58 PM EDT Ishhectoril Mila DO LAB POINT OF CARE TE ST DOCKED DEVICE UNSOLICITED RESULTS Performing Organization Address [facility] Co de Phone Number [facility] [address] [place] [address] * (ABNORMAL) GLUCOSE METER, POINT OF CARE (10/07/2023 11:59 AM EDT) Glucose Meter 69(L) 70 - 120 mg/dL 10/07/2023 12:07 PM EDT [facility] Blood Whole blood specimen / Unknown 10/07/2023 11:59 AM EDT 10/07/2023 12:07 PM EDT Juan Zaragoza DO LAB POINT OF CARE TE ST DOCKED DEVICE UNSOLICITED RESULTS Performing Organization Address [facility] de Phone Number [facility] [address] [place] [address] * (ABNORMAL) GLUCOSE METER, POINT OF CARE (10/07/2023 8:04 AM EDT) Glucose Meter 128(H) 70 - 120 mg/dL 10/07/2023 8:12 AM EDT [facility] Blood Whole blood specimen / Unknown 10/07/2023 8:04 AM EDT 10/07/2023 8:12 AM EDT Juan Zaragoza DO LAB POINT OF CARE TE ST DOCKED DEVICE UNSOLICITED RESULTS Performing Organization Address [facility] de Phone Number [facility] [address] [facility] [id number] * EXTRA LAVENDER TOP (10/07/2023 5:01 AM EDT) Blood Venous blood specimen / Unknown Venipuncture / Unknown 10/07/2023 5:01 AM EDT 10/07/2023 5:14 AM EDT Juan Zaragoza LAB BLOOD ORDERABLES Performing Organization Address [facility] Co de Phone Number LABORATORY [address] [phone] * MAGNESIUM (10/07/2023 5:01 AM EDT) Magnesium 2.2 1.5 - 2.6 mg/dL 10/07/2023 5:34 AM EDT LABORATORY [facility] Blood Venous blood specimen / Unknown Venipuncture / Unknown 10/07/2023 5:01 AM EDT 10/07/2023 5:14 AM EDT Min Min Suzie SNIDER LAB BLOOD ORDERABLES Performing Organization Address City/[facility] Co de Phone Number LABORATORY [address] [address] * PHOSPHORUS (10/07/2023 5:01 AM EDT) Phosphorus 3.1 2.5 - 4.8 mg/dL 10/07/2023 5:34 AM EDT LABORATORY [facility] Blood Venous blood specimen / Unknown Venipuncture / Unknown 10/07/2023 5:01 AM EDT 10/07/2023 5:14 AM EDT Min Min Suzie SNIDER LAB BLOOD ORDERABLES Performing Organization Address City/[facility] de Phone Number LABORATORY [address] [address] * (ABNORMAL) BASIC METABOLIC PANEL (10/07/2023 5:01 AM EDT) BUN 46(H) 6 - 20 mg/dL 10/07/2023 5:34 AM EDT LABORATORY [facility] Creatinine 1.0 0.5 - 1.0 mg/dL 10/07/2023 5:34 AM EDT LABORATORY GL Estimated Glomerular Filtration Rate 66 >=60 mL/min 10/07/2023 5:34 AM EDT LABORATORY [facility] Comment:eGFR is calculated b ased on the CKD-EPI 2020 equation Sodium 143 135 - 146 mmol/L 10/07/2023 5:34 AM EDT LABORATORY GL Potassium 4.7 3.5 - 5.1 mmol/L 10/07/2023 5:34 AM EDT LABORATORY [facility] Chloride 105 98 - 107 mmol/L 10/07/2023 5:34 AM EDT LABORATORY [facility] CO2 31 22 - 32 mmol/L 10/07/2023 5:34 AM EDT LABORATORY GL Anion Gap 7 7 - 15 mmol/L 10/07/2023 5:34 AM EDT LABORATORY [facility] Glucose 154(H) 70 - 120 mg/dL 10/07/2023 5:34 AM EDT LABORATORY [facility] Calcium 8.5 8.4 - 10.2 mg/dL 10/07/2023 5:34 AM EDT LABORATORY GL Blood Venous blood specimen / Unknown Venipuncture / Unknown 10/07/2023 5:01 AM EDT 10/07/2023 5:14 AM EDT Min Min Suzie SNIDER LAB BLOOD ORDERABLES LABORATORY [address] [address] * (ABNORMAL) GLUCOSE METER, POINT OF CARE (10/06/2023 9:53 PM EDT) Glucose Meter 138(H) 70 - 120 mg/dL 10/06/2023 10:02 PM EDT [facility] Blood Whole blood specimen / Unknown 10/06/2023 9:53 PM EDT 10/06/2023 10:02 PM EDT Ishmail Saccoh DO LAB POINT OF CARE TE ST DOCKED DEVICE UNSOLICITED RESULTS Performing Organization Address City/[facility]/ZIP Co de Phone Number [facility] [address] [place] [phone] * (ABNORMAL) GLUCOSE METER, POINT OF CARE (10/06/2023 4:20 PM EDT) Glucose Meter 125(H) 70 - 120 mg/dL 10/06/2023 4:31 PM EDT [facility] Blood Whole blood specimen / Unknown 10/06/2023 4:20 PM EDT 10/06/2023 4:31 PM EDT Juan Zaragoza DO LAB POINT OF CARE TE ST DOCKED DEVICE UNSOLICITED RESULTS [facility] [address] [place] [address] * XR SHOULDER, 2 OR MORE VIEWS (10/06/2023 1:38 PM EDT) Anatomical Region Laterality Modality Upper Extremity, Shoulder Digita l Radiography 10/06/2023 1:21 PM EDT Impressions 10/06/2023 1:56 PM EDT IMPRESSION: 1. Unremarkable right shoulder. 2. Right lung demonstrates diffuse hazy opacities without significant change compared to the 10/02/2023 CXR. THIS DOCUMENT HAS BEEN ELECTRONICALLY SIGNED BY FELICIANO TOVAR MD Narrative 10/06/2023 1:56 PM EDT PROCEDURE INFORMATION: Exam: XR Right Shoulder Exam date and time: 10/06/2023 1:21 PM Age: 58 years old Clinical indication: Other: Right shoulder pain, no known injury TECHNIQUE: Imaging protocol: Radiologic exam of the right shoulder. Views: 2 or more views. COMPARISON: VASC DUPLEX VENOUS LE UNILAT 04/10/2023 12:33 PM FINDINGS: Bones/joints: Diffuse osteopenia. No fracture or dislocation. Unremarkable glenohumeral joint. Unremarkable AC joint. Lungs: Right lung demonstrates diffuse hazy opacities without significant change compared to the 10/02/2023 CXR. Soft tissues: Normal. Procedure Note Feliciano Tovar MD - 10/06/2023 PROCEDURE INFORMATION: Exam: XR Right Shoulder Exam date and time: 10/06/2023 1:21 PM Age: 58 years old Clinical indication: Other: Right shoulder pain, no known injury TECHNIQUE: Imaging protocol: Radiologic exam of the right shoulder. Views: 2 or more views. COMPARISON: VASC DUPLEX VENOUS LE UNILAT 04/10/2023 12:33 PM FINDINGS: Bones/joints: Diffuse osteopenia. No fracture or dislocation. Unremarkable glenohumeral joint. Unremarkable AC joint. Lungs: Right lung demonstrates diffuse hazy opacities without significant change compared to the 10/02/2023 CXR. Soft tissues: Normal. IMPRESSION IMPRESSION: 1. Unremarkable right shoulder. 2. Right lung demonstrates diffuse hazy opacities without significantchange compared to the 10/02/2023 CXR. THIS DOCUMENT HAS BEEN ELECTRONICALLY SIGNED BY FELICIANO TOVAR MD LanTracourcharlette Zaragoza DO RADIOLOGY (RAD GENER AL) * (ABNORMAL) GLUCOSE METER, POINT OF CARE (10/06/2023 11:17 AM EDT) Glucose Meter 167(H) 70 - 120 mg/dL 10/06/2023 11:22 AM EDT [facility] Blood Whole blood specimen / Unknown 10/06/2023 11:17 AM EDT 10/06/2023 11:22 AM EDT [facility] POINT OF CARE TE ST DOCKED DEVICE UNSOLICITED RESULTS Performing Organization Address City/[facility] Co de Phone Number [facility] [address] [place] [address] * (ABNORMAL) GLUCOSE METER, POINT OF CARE (10/06/2023 7:18 AM EDT) Glucose Meter 146(H) 70 - 120 mg/dL 10/06/2023 7:43 AM EDT [facility] Blood Whole blood specimen / Unknown 10/06/2023 7:18 AM EDT 10/06/2023 7:43 AM EDT [facility] LAB POINT OF CARE TE ST DOCKED DEVICE UNSOLICITED RESULTS Performing Organization Address City/[facility] Co de Phone Number [facility] [address] [place] [address] * MAGNESIUM (10/06/2023 5:10 AM EDT) Magnesium 1.8 1.5 - 2.6 mg/dL 10/06/2023 6:14 AM EDT LABORATORY [facility] Blood Venous blood specimen / Unknown Venipuncture / Unknown 10/06/2023 5:10 AM EDT 10/06/2023 5:41 AM EDT Min Min Suzie SNIDER LAB BLOOD ORDERABLES Performing Organization Address City/[facility]/ZIP Co de Phone Number LABORATORY [address] [address] * PHOSPHORUS (10/06/2023 5:10 AM EDT) Phosphorus 3.2 2.5 - 4.8 mg/dL 10/06/2023 6:14 AM EDT LABORATORY GL Blood Venous blood specimen / Unknown Venipuncture / Unknown 10/06/2023 5:10 AM EDT 10/06/2023 5:41 AM EDT Min Min Suzie SNIDER LAB BLOOD ORDERABLES Performing Organization Address [facility] Co de Phone Number LABORATORY [address] [address] * (ABNORMAL) BASIC METABOLIC PANEL (10/06/2023 5:10 AM EDT) BUN 44(H) 6 - 20 mg/dL 10/06/2023 6:14 AM EDT LABORATORY GL Creatinine 1.3(H) 0.5 - 1.0 mg/dL 10/06/2023 6:14 AM EDT LABORATORY [facility] Estimated Glomerular Filtration Rate 48(L) >=60 mL/min 10/06/2023 6:14 AM EDT LABORATORY [facility] Comment:eGFR is calculated b ased on the CKD-EPI 2020 equation Sodium 141 135 - 146 mmol/L 10/06/2023 6:14 AM EDT LABORATORY [facility] Potassium 4.2 3.5 - 5.1 mmol/L 10/06/2023 6:14 AM EDT LAB[facility]ATORY [facility] Chloride 103 98 - 107 mmol/L 10/06/2023 6:14 AM EDT LAB[facility]ATORY [facility] CO2 27 22 - 32 mmol/L 10/06/2023 6:14 AM EDT LAB[facility]ATORY [facility] Anion Gap 11 7 - 15 mmol/L 10/06/2023 6:14 AM EDT LABORATORY [facility] Glucose 168(H) 70 - 120 mg/dL 10/06/2023 6:14 AM EDT LABORATORY [facility] Calcium 8.3(L) 8.4 - 10.2 mg/dL 10/06/2023 6:14 AM EDT LABORATORY [facility] Blood Venous blood specimen / Unknown Venipuncture / Unknown 10/06/2023 5:10 AM EDT 10/06/2023 5:41 AM EDT Min Min Suzie SNIDER LAB BLOOD ORDERABLES LABORATORY [facility] [address] [place] [address] * (ABNORMAL) CBC (10/06/2023 5:10 AM EDT) WBC 7.91 4.00 - 10.80 K/uL 10/06/2023 5:49 AM EDT LABORATORY [facility] RBC 2.73 3.85 - 5.15 M/uL 10/06/2023 5:49 AM EDT LABORATORY [facility] HGB 8.3(L) 12.0 - 15.3 g/dL 10/06/2023 5:49 AM EDT LABORATORY [facility] HCT 26.4(L) 36.0 - 45.2 % 10/06/2023 5:49 AM EDT LABORATORY [facility] MCV 96.7 81.5 - 97.5 fL 10/06/2023 5:49 AM EDT LABORATORY [facility] MCH 30.4 27.0 - 34.0 pg 10/06/2023 5:49 AM EDT LABORATORY [facility] MCHC 31.4 32.0 - 36.0 g/dL 10/06/2023 5:49 AM EDT LABORATORY [facility] RDW 16.2 11.5 - 15.5 % 10/06/2023 5:49 AM EDT LABORATORY [facility] PLT 288 140 - 400 K/uL 10/06/2023 5:49 AM EDT LABORATORY [facility] MPV 12.5 6.6 - 11.1 fL 10/06/2023 5:49 AM EDT LABORATORY [facility] nRBCs 0 <=0 /100 WBCs 10/06/2023 5:49 AM EDT LABORATORY [facility] Blood Venous blood specimen / Unknown Venipuncture / Unknown 10/06/2023 5:10 AM EDT 10/06/2023 5:41 AM EDT Jess Carranza MD LAB BLOOD ORDERABL ES Performing Organization Address City/[facility]/ZIP Co de Phone Number LABORATORY [address] [address] * (ABNORMAL) GLUCOSE METER, POINT OF CARE (10/05/2023 9:41 PM EDT) Glucose Meter 172(H) 70 - 120 mg/dL 10/05/2023 10:15 PM EDT [facility] Blood Whole blood specimen / Unknown 10/05/2023 9:41 PM EDT 10/05/2023 10:15 PM EDT IshNuScriptRxtx DO LAB POINT OF CARE TE ST DOCKED DEVICE UNSOLICITED RESULTS Performing Organization Address [facility] Co de Phone Number [facility] [address] [place] [address] * (ABNORMAL) GLUCOSE METER, POINT OF CARE (10/05/2023 4:17 PM EDT) Glucose Meter 144(H) 70 - 120 mg/dL 10/05/2023 4:19 PM EDT [facility] Blood Whole blood specimen / Unknown 10/05/2023 4:17 PM EDT 10/05/2023 4:19 PM EDT Ishmail PlayerLync DO LAB POINT OF CARE TE ST DOCKED DEVICE UNSOLICITED RESULTS Performing Organization Address [facility] Co de Phone Number [facility] [address] [place] [phone] * GLUCOSE METER, POINT OF CARE (10/05/2023 1:13 PM EDT) Glucose Meter 104 70 - 120 mg/dL 10/05/2023 1:15 PM EDT [facility] Blood Whole blood specimen / Unknown 10/05/2023 1:13 PM EDT 10/05/2023 1:15 PM EDT Juan Zaragoza DO LAB POINT OF CARE TE ST DOCKED DEVICE UNSOLICITED RESULTS [facility] [address] [place] [address] * IR LUMBAR PUNCTURE (10/05/2023 12:15 PM EDT) Anatomical Region Laterality Modality Any Computed Radiogr aphy 10/05/2023 3:59 PM EDT Impressions 10/05/2023 3:57 PM EDT IMPRESSION: Successful fluoroscopic-guided diagnostic lumbar puncture PLAN: Follow-up of cerebrospinal fluid analysis and further management per primary team Narrative 10/05/2023 3:57 PM EDT PROCEDURE: Diagnostic lumbar puncture . INDICATION: Workup for multiple sclerosis ATTENDING (OPERATING PHYSICIAN): Romana CONSENT: After a detailed discussion of the procedure, risks, benefits and alternative treatment options, informed consent was obtained. TIME OUT: A time out procedure was performed. The patient's identification was verified. Informed consent with agreement of procedure, site and position was obtained. All necessary equipment was available prior to procedure. CONTRAST: No contrast was administered. COMPLICATIONS: None. ANESTHESIA: Local lidocaine. MEDICATIONS: See MAR PROCEDURE DESCRIPTION: The lumbar area was prepped and draped in the usual sterile fashion. Using intermittent fluoroscopic guidance, attempts to access the L4-5 disc space failed. Using intermittent fluoroscopic guidance, the thecal sac was penetrated at the L5-S1 level with a 22 gauge 6 inch spinal needle with confirmation by immediate return of clear and colorless cerebrospinal fluid (CSF). Opening pressure measured mm CSF. CSF was collected in four tubes as labeled in consecutive order and sent to the lab for analysis. The needle was removed and the site was dressed. The procedure was performed by Dr. Avendano FINDINGS: Single spot image demonstrates the spinal needle at the L5-S1 level. Clear and colorless CSF was returned from the needle. Procedure Note Jordan Avendano MD - 10/05/2023 PROCEDURE: Diagnostic lumbar puncture . INDICATION: Workup for multiple sclerosis ATTENDING (OPERATING PHYSICIAN): Romana CONSENT: After a detailed discussion of the procedure, risks, benefits andalternative treatment options, informed consent was obtained. TIME OUT: A time out procedure was performed. The patient's identificationwas verified. Informed consent with agreement of procedure, site andposition was obtained. All necessary equipment was available prior toprocedure. CONTRAST: No contrast was administered. COMPLICATIONS: None. ANESTHESIA: Local lidocaine. MEDICATIONS: See MAR PROCEDURE DESCRIPTION: The lumbar area was prepped and draped in the usualsterile fashion. Using intermittent fluoroscopic guidance, attempts toaccess the L4-5 disc space failed. Using intermittent fluoroscopicguidance, the thecal sac was penetrated at the L5-S1 level with a 22 gauge6 inch spinal needle with confirmation by immediate return of clear andcolorless cerebrospinal fluid (CSF). Opening pressure measured mm CSF. CSFwas collected in four tubes as labeled in consecutive order and sent tot lab for analysis. The needle was removed and the site was dressed. The procedure was performed by Dr. Avendano FINDINGS: Single spot image demonstrates the spinal needle at the L5-S1 level.Clear and colorless CSF was returned from the needle. IMPRESSION IMPRESSION: Successful fluoroscopic-guided diagnostic lumbar puncture PLAN: Follow-up of cerebrospinal fluid analysis and further management perprimary team Jess Carranza MD RAD SPECIAL PROCED URES * BODY FLUID INTERPRETATION (10/05/2023 11:13 AM EDT) Body Fluid Interpretation Cerebrospinal fluid: - Differential shows granulocytic left shift and occasional nucleated red blood cell, recommend correlation with peripheral blood differential. Findings are suspicious for marrow contamination. 10/06/2023 8:15 AM EDT LABORATORY [facility] Cerebrospinal Fluid Cerebrospinal fluid specimen / Unknown 10/05/2023 11:13 AM EDT 10/05/2023 12:59 PM EDT Jess Carranza MD LAB FLUID AND STOO L ORDERABLES LABORATORY [facility] [address] [place] [address] * (ABNORMAL) MANUAL DIFFERENTIAL, CSF (10/05/2023 11:13 AM EDT) Total Nucleated Cell Count, CSF 2 cells/uL 10/06/2023 8:15 AM EDT LABORATORY [facility] Neutrophils % 48(H) 0 - 6 % 10/06/2023 8:15 AM EDT LAB[facility]ATORY [facility] Lymphocytes % 33(L) 40 - 80 % 10/06/2023 8:15 AM EDT LAB[facility]ATORY [facility] Monocytes % 6(L) 15 - 45 % 10/06/2023 8:15 AM EDT LAB[facility]ORY [facility] Eosinophils % 4(H) 0 - 1 % 10/06/2023 8:15 AM EDT [facility]ORY [facility] Basophils % 1(H) <=0 % 10/06/2023 8:15 AM EDT LAB[facility]ORY [facility] Immature Granulocytes % 7(H) <=0 % 10/06/2023 8:15 AM EDT [facility]ORY [facility] Other Cells % 1(H) <=0 % 10/06/2023 8:15 AM EDT LAB[facility]ORY [facility] Comment:Nucleated erythrocyt e Absolute Neutrophils 0.96 cells/uL 10/06/2023 8:15 AM EDT LAB[facility]ATORY [facility] Absolute Lymphocytes 0.66 cells/uL 10/06/2023 8:15 AM EDT LAB[facility]ORY [facility] Absolute Monocytes 0.12 cells/uL 10/06/2023 8:15 AM EDT [facility]ORY [facility] Absolute Eosinophils 0.08 cells/uL 10/06/2023 8:15 AM EDT LAB[facility]ORY [facility] Absolute Basophils 0.02 cells/uL 10/06/2023 8:15 AM EDT LAB[facility]ORY [facility] Absolute Immature Granuloctyes 0.14 cells/uL 10/06/2023 8:15 AM EDT LAB[facility]ORY [facility] Absolute Other Cells 0.02 cells/uL 10/06/2023 8:15 AM EDT [facility] Cerebrospinal Fluid Cerebrospinal fluid specimen / Unknown 10/05/2023 11:13 AM EDT 10/05/2023 12:59 PM EDT [facility] - 10/06/2023 8:15 AM EDT Some reference ranges and other method performance specifications have not been established for this fluid. The test results must be integrated into the clinical context for interpretation. Jess Carranza MD LAB FLUID AND STOO L ORDERABLES Performing Organization Address [facility] Co de Phone Number LABORATORY [facility] [address] [facility] [place] [address] [address] * (ABNORMAL) CELL COUNT, CSF (10/05/2023 11:13 AM EDT) Color, CSF Colorless Colorless 10/05/2023 1:23 PM EDT LABORATORY [facility] Clarity, CSF Clear Clear 10/05/2023 1:23 PM EDT LABORATORY [facility] Color, Supernatant CSF Colorless Colorless 10/05/2023 1:23 PM EDT LABORATORY [facility] Tube Number, CSF 3 10/05/2023 1:23 PM EDT LABORATORY [facility] Total Nucleated Cell Count, CSF 2 <5 cells/uL 10/05/2023 1:23 PM EDT LABORATORY [facility] RBC, CSF 607(H) <5 cells/uL 10/05/2023 1:23 PM EDT LABORATORY [facility] Cerebrospinal Fluid Cerebrospinal fluid specimen / Unknown 10/05/2023 11:13 AM EDT 10/05/2023 12:59 PM EDT Narrative LABORATORY [facility] - 10/05/2023 1:23 PM EDT Some reference ranges and other method performance specifications have not been established for this fluid. The test results must be integrated into the clinical context for interpretation. Jess Carranza MD LAB FLUID AND STOO L ORDERABLES Performing Organization Address [facility] Co de Phone Number LABORATORY [address] [address] * (ABNORMAL) GLUCOSE, CSF (10/05/2023 11:13 AM EDT) Glucose, CSF 87(H) 45 - 70 mg/dL 10/05/2023 1:23 PM EDT LABORATORY [facility] Cerebrospinal Fluid 10/05/19 11:13 AM EDT 10/05/2023 12:59 PM EDT Narrative LABORATORY [facility] - 10/05/2023 1:23 PM EDT Normal CSF Glucose concentration should be approximately 60% of plasma/serum glucose value. Jess Carranza MD LAB FLUID AND STOO L ORDERABLES Performing Organization Address [facility] Co de Phone Number LABORATORY [address] [address] * PROTEIN, CSF (10/05/2023 11:13 AM EDT) Protein, CSF 29 15 - 45 mg/dL 10/05/2023 1:42 PM EDT LABORATORY [facility] Cerebrospinal Fluid Cerebrospinal fluid specimen / Unknown 10/05/2023 11:13 AM EDT 10/05/2023 12:59 PM EDT Jess Carranza MD LAB FLUID AND STOO L ORDERABLES Performing Organization Address [facility] de Phone Number LABORATORY [address] [address] * (ABNORMAL) GLUCOSE METER, POINT OF CARE (10/05/2023 7:52 AM EDT) Glucose Meter 175(H) 70 - 120 mg/dL 10/05/2023 8:28 AM EDT [facility] Blood Whole blood specimen / Unknown 10/05/2023 7:52 AM EDT 10/05/2023 8:28 AM EDT Juan Zaragoza DO LAB POINT OF CARE TE ST DOCKED DEVICE UNSOLICITED RESULTS Performing Organization Address [facility] Co de Phone Number [facility] [address] [place] [phone] * MAGNESIUM (10/05/2023 5:04 AM EDT) Magnesium 2.0 1.5 - 2.6 mg/dL 10/05/2023 5:33 AM EDT LABORATORY [facility] Blood Venous blood specimen / Unknown Venipuncture / Unknown 10/05/2023 5:04 AM EDT 10/05/2023 5:10 AM EDT Min Min Suzie SNIDER LAB BLOOD ORDERABLES LABORATORY [address] [address] * PHOSPHORUS (10/05/2023 5:04 AM EDT) Phosphorus 2.6 2.5 - 4.8 mg/dL 10/05/2023 5:33 AM EDT LABORATORY GL Blood Venous blood specimen / Unknown Venipuncture / Unknown 10/05/2023 5:04 AM EDT 10/05/2023 5:10 AM EDT Min Min Suzie SNIDER LAB BLOOD ORDERABLES Performing Organization Address City/[facility] Co de Phone Number LABORATORY [address] [address] * (ABNORMAL) BASIC METABOLIC PANEL (10/05/2023 5:04 AM EDT) BUN 50(H) 6 - 20 mg/dL 10/05/2023 5:33 AM EDT LABORATORY GL Creatinine 1.2(H) 0.5 - 1.0 mg/dL 10/05/2023 5:33 AM EDT LABORATORY GL Estimated Glomerular Filtration Rate 54(L) >=60 mL/min 10/05/2023 5:33 AM EDT LAB[facility]ATORY [facility] Comment:eGFR is calculated b ased on the CKD-EPI 2020 equation Sodium 139 135 - 146 mmol/L 10/05/2023 5:33 AM EDT LAB[facility]ATORY [facility] Potassium 4.2 3.5 - 5.1 mmol/L 10/05/2023 5:33 AM EDT LAB[facility]ORY [facility] Chloride 102 98 - 107 mmol/L 10/05/2023 5:33 AM EDT LAB[facility]ORY [facility] CO2 27 22 - 32 mmol/L 10/05/2023 5:33 AM EDT LAB[facility]ORY [facility] Anion Gap 10 7 - 15 mmol/L 10/05/2023 5:33 AM EDT [facility] Glucose 184(H) 70 - 120 mg/dL 10/05/2023 5:33 AM EDT LAB[facility]ATORY [facility] Calcium 8.3(L) 8.4 - 10.2 mg/dL 10/05/2023 5:33 AM EDT LABORATORY [facility] Blood Venous blood specimen / Unknown Venipuncture / Unknown 10/05/2023 5:04 AM EDT 10/05/2023 5:10 AM EDT Min Min Suzie SNIDER LAB BLOOD ORDERABLES LABORATORY [address] [address] * (ABNORMAL) CBC (10/05/2023 5:04 AM EDT) WBC 9.05 4.00 - 10.80 K/uL 10/05/2023 5:15 AM EDT LABORATORY [facility] RBC 2.84 3.85 - 5.15 M/uL 10/05/2023 5:15 AM EDT LABORATORY [facility] HGB 8.5(L) 12.0 - 15.3 g/dL 10/05/2023 5:15 AM EDT LABORATORY [facility] HCT 26.8(L) 36.0 - 45.2 % 10/05/2023 5:15 AM EDT LABORATORY [facility] MCV 94.4 81.5 - 97.5 fL 10/05/2023 5:15 AM EDT LABORATORY [facility] MCH 29.9 27.0 - 34.0 pg 10/05/2023 5:15 AM EDT LABORATORY [facility] MCHC 31.7 32.0 - 36.0 g/dL 10/05/2023 5:15 AM EDT LABORATORY [facility] RDW 16.6 11.5 - 15.5 % 10/05/2023 5:15 AM EDT LABORATORY [facility] PLT 301 140 - 400 K/uL 10/05/2023 5:15 AM EDT LABORATORY [facility] MPV 12.0 6.6 - 11.1 fL 10/05/2023 5:15 AM EDT LABORATORY [facility] nRBCs 0 <=0 /100 WBCs 10/05/2023 5:15 AM EDT LABORATORY [facility] Blood Venous blood specimen / Unknown Venipuncture / Unknown 10/05/2023 5:04 AM EDT 10/05/2023 5:10 AM EDT Jess Carranza MD LAB BLOOD ORDERABL ES LABORATORY [address] [address] * GLUCOSE METER, POINT OF CARE (10/05/2023 12:25 AM EDT) Glucose Meter 120 70 - 120 mg/dL 10/05/2023 12:29 AM EDT [facility] Blood Whole blood specimen / Unknown 10/05/2023 12:25 AM EDT 10/05/2023 12:29 AM EDT Byron Johnson MD LAB POINT OF CARE TE ST DOCKED DEVICE UNSOLICITED RESULTS Performing Organization Address [facility] [facility] Co de Phone Number [facility] [address] [place] [phone] * (ABNORMAL) GLUCOSE METER, POINT OF CARE (10/04/2023 9:25 PM EDT) Glucose Meter 155(H) 70 - 120 mg/dL 10/04/2023 9:53 PM EDT [facility] Blood Whole blood specimen / Unknown 10/04/2023 9:25 PM EDT 10/04/2023 9:53 PM EDT Byron Johnson MD LAB POINT OF CARE TE ST DOCKED DEVICE UNSOLICITED RESULTS [facility] [address] [place] [address] * (ABNORMAL) GLUCOSE METER, POINT OF CARE (10/04/2023 6:15 PM EDT) Glucose Meter 134(H) 70 - 120 mg/dL 10/04/2023 6:19 PM EDT [facility] Blood Whole blood specimen / Unknown 10/04/2023 6:15 PM EDT 10/04/2023 6:19 PM EDT Byron Johnson MD LAB POINT OF CARE TE ST DOCKED DEVICE UNSOLICITED RESULTS Performing Organization Address [facility] Co de Phone Number [facility] [address] [place] [address] * (ABNORMAL) GLUCOSE METER, POINT OF CARE (10/04/2023 4:42 PM EDT) Glucose Meter 157(H) 70 - 120 mg/dL 10/04/2023 5:01 PM EDT [facility] Blood Whole blood specimen / Unknown 10/04/2023 4:42 PM EDT 10/04/2023 5:01 PM EDT Byron Johnson MD LAB POINT OF CARE TE ST DOCKED DEVICE UNSOLICITED RESULTS Performing Organization Address [facility] de Phone Number [facility] [address] [facility] [place] [address] * (ABNORMAL) GLUCOSE METER, POINT OF CARE (10/04/2023 11:39 AM EDT) Glucose Meter 142(H) 70 - 120 mg/dL 10/04/2023 11:42 AM EDT [facility] Blood Whole blood specimen / Unknown 10/04/2023 11:39 AM EDT 10/04/2023 11:42 AM EDT Byron Johnson MD LAB POINT OF CARE TE ST DOCKED DEVICE UNSOLICITED RESULTS Performing Organization Address [facility] Co de Phone Number [facility] [address] [facility] [place] [address] * (ABNORMAL) GLUCOSE METER, POINT OF CARE (10/04/2023 7:46 AM EDT) Glucose Meter 179(H) 70 - 120 mg/dL 10/04/2023 9:06 AM EDT [facility] Blood Whole blood specimen / Unknown 10/04/2023 7:46 AM EDT 10/04/2023 9:06 AM EDT Byron Johnson MD LAB POINT OF CARE TE ST DOCKED DEVICE UNSOLICITED RESULTS Performing Organization Address City/[facility]/ZIP Co de Phone Number [facility] [address] [place] [phone] * MAGNESIUM (10/04/2023 6:20 AM EDT) Magnesium 1.6 1.5 - 2.6 mg/dL 10/04/2023 7:00 AM EDT LABORATORY [facility] Blood Venous blood specimen / Unknown Venipuncture / Unknown 10/04/2023 6:20 AM EDT 10/04/2023 6:29 AM EDT Alen Larsen MD LAB BLOOD ORDERABLES Performing Organization Address [facility] de Phone Number LABORATORY [address] [address] * PHOSPHORUS (10/04/2023 6:20 AM EDT) Phosphorus 2.8 2.5 - 4.8 mg/dL 10/04/2023 7:00 AM EDT LABORATORY [facility] Blood Venous blood specimen / Unknown Venipuncture / Unknown 10/04/2023 6:20 AM EDT 10/04/2023 6:29 AM EDT Alen Larsen MD LAB BLOOD ORDERABLES Performing Organization Address [facility] de Phone Number LABORATORY [address] [address] * (ABNORMAL) BASIC METABOLIC PANEL (10/04/2023 6:20 AM EDT) BUN 57(H) 6 - 20 mg/dL 10/04/2023 7:00 AM EDT LABORATORY [facility] Creatinine 1.4(H) 0.5 - 1.0 mg/dL 10/04/2023 7:00 AM EDT LABORATORY GL Estimated Glomerular Filtration Rate 45(L) >=60 mL/min 10/04/2023 7:00 AM EDT LABORATORY [facility] Comment:eGFR is calculated b ased on the CKD-EPI 2020 equation Sodium 141 135 - 146 mmol/L 10/04/2023 7:00 AM EDT LABORATORY [facility] Potassium 3.5 3.5 - 5.1 mmol/L 10/04/2023 7:00 AM EDT LAB[facility]ATORY [facility] Chloride 104 98 - 107 mmol/L 10/04/2023 7:00 AM EDT LAB[facility]ATORY [facility] CO2 23 22 - 32 mmol/L 10/04/2023 7:00 AM EDT LABORATORY [facility] Anion Gap 14 7 - 15 mmol/L 10/04/2023 7:00 AM EDT LAB[facility]ATORY [facility] Glucose 208(H) 70 - 120 mg/dL 10/04/2023 7:00 AM EDT LABORATORY [facility] Calcium 8.1(L) 8.4 - 10.2 mg/dL 10/04/2023 7:00 AM EDT LAB[facility]ATORY [facility] Blood Venous blood specimen / Unknown Venipuncture / Unknown 10/04/2023 6:20 AM EDT 10/04/2023 6:29 AM EDT Min Min Suzie SNIDER LAB BLOOD ORDERABLES LABORATORY [address] [address] * (ABNORMAL) CBC (10/04/2023 6:20 AM EDT) WBC 11.43(H) 4.00 - 10.80 K/uL 10/04/2023 6:34 AM EDT LABORATORY [facility] RBC 2.76 3.85 - 5.15 M/uL 10/04/2023 6:34 AM EDT LABORATORY [facility] HGB 8.0(L) 12.0 - 15.3 g/dL 10/04/2023 6:34 AM EDT LABORATORY [facility] HCT 25.6(L) 36.0 - 45.2 % 10/04/2023 6:34 AM EDT LAB[facility]ATORY [facility] MCV 92.8 81.5 - 97.5 fL 10/04/2023 6:34 AM EDT LABORATORY [facility] MCH 29.0 27.0 - 34.0 pg 10/04/2023 6:34 AM EDT LABORATORY [facility] MCHC 31.3 32.0 - 36.0 g/dL 10/04/2023 6:34 AM EDT LABORATORY [facility] RDW 17.0 11.5 - 15.5 % 10/04/2023 6:34 AM EDT LABORATORY [facility] PLT 293 140 - 400 K/uL 10/04/2023 6:34 AM EDT LABORATORY [facility] MPV 11.9 6.6 - 11.1 fL 10/04/2023 6:34 AM EDT LABORATORY [facility] nRBCs 0 <=0 /100 WBCs 10/04/2023 6:34 AM EDT LABORATORY [facility] Blood Venous blood specimen / Unknown Venipuncture / Unknown 10/04/2023 6:20 AM EDT 10/04/2023 6:29 AM EDT Jess Carranza MD LAB BLOOD ORDERABL ES Performing Organization Address City/[facility]/ZIP Co de Phone Number LABORATORY [address] [address] * (ABNORMAL) GLUCOSE METER, POINT OF CARE (10/04/2023 6:11 AM EDT) Glucose Meter 192(H) 70 - 120 mg/dL 10/04/2023 6:15 AM EDT [facility] Blood Whole blood specimen / Unknown 10/04/2023 6:11 AM EDT 10/04/2023 6:15 AM EDT Jess Carranza MD LAB POINT OF CARE TEST DOCKED DEVICE UNSOLICITED RESULTS [facility] [address] [place] [address] * GLUCOSE METER, POINT OF CARE (10/04/2023 12:21 AM EDT) Glucose Meter 113 70 - 120 mg/dL 10/04/2023 12:26 AM EDT [facility] Blood Whole blood specimen / Unknown 10/04/2023 12:21 AM EDT 10/04/2023 12:26 AM EDT Jess Carranza MD LAB POINT OF CARE TEST DOCKED DEVICE UNSOLICITED RESULTS Performing Organization Address [facility] de Phone Number [facility] [address] [place] [phone] * (ABNORMAL) GLUCOSE METER, POINT OF CARE (10/03/2023 9:09 PM EDT) Glucose Meter 181(H) 70 - 120 mg/dL 10/03/2023 9:25 PM EDT [facility] Blood Whole blood specimen / Unknown 10/03/2023 9:09 PM EDT 10/03/2023 9:25 PM EDT Jess Carranza MD LAB POINT OF CARE TEST DOCKED DEVICE UNSOLICITED RESULTS Performing Organization Address [facility] de Phone Number [facility] [address] [place] [phone] * EXTRA LAVENDER TOP (10/03/2023 5:39 PM EDT) Blood Venous blood specimen / Unknown Venipuncture / Unknown 10/03/2023 5:39 PM EDT 10/03/2023 5:59 PM EDT Jess Carranza MD LAB BLOOD ORDERABL ES Performing Organization Address [facility] Co de Phone Number LABORATORY [address] [phone] * PHOSPHORUS (10/03/2023 5:29 PM EDT) Phosphorus 3.7 2.5 - 4.8 mg/dL 10/03/2023 6:35 PM EDT LABORATORY [facility] Blood Venous blood specimen / Unknown Venipuncture / Unknown 10/03/2023 5:29 PM EDT 10/03/2023 5:58 PM EDT Susanne Regalado MD LAB BLOOD ORDERABLES Performing Organization Address [facility] Co de Phone Number LABORATORY [address] [address] * MAGNESIUM (10/03/2023 5:29 PM EDT) Magnesium 1.7 1.5 - 2.6 mg/dL 10/03/2023 6:35 PM EDT LABORATORY GL Blood Venous blood specimen / Unknown Venipuncture / Unknown 10/03/2023 5:29 PM EDT 10/03/2023 5:58 PM EDT Susanne Regalado MD LAB BLOOD ORDERABLES LABORATORY [facility] [address], [place] [phone] * (ABNORMAL) BASIC METABOLIC PANEL (10/03/2023 5:29 PM EDT) BUN 62(H) 6 - 20 mg/dL 10/03/2023 6:35 PM EDT LABORATORY [facility] Creatinine 1.5(H) 0.5 - 1.0 mg/dL 10/03/2023 6:35 PM EDT LABORATORY [facility] Estimated Glomerular Filtration Rate 39(L) >=60 mL/min 10/03/2023 6:35 PM EDT LABORATORY [facility] Comment:eGFR is calculated b ased on the CKD-EPI 2020 equation Sodium 139 135 - 146 mmol/L 10/03/2023 6:35 PM EDT LABORATORY [facility] Potassium 4.1 3.5 - 5.1 mmol/L 10/03/2023 6:35 PM EDT LABORATORY [facility] Chloride 103 98 - 107 mmol/L 10/03/2023 6:35 PM EDT LABORATORY [facility] CO2 22 22 - 32 mmol/L 10/03/2023 6:35 PM EDT LABORATORY GL[facility] Anion Gap 14 7 - 15 mmol/L 10/03/2023 6:35 PM EDT LABORATORY [facility] Glucose 161(H) 70 - 120 mg/dL 10/03/2023 6:35 PM EDT LABORATORY [facility] Calcium 8.5 8.4 - 10.2 mg/dL 10/03/2023 6:35 PM EDT LABORATORY [facility] Blood Venous blood specimen / Unknown Venipuncture / Unknown 10/03/2023 5:29 PM EDT 10/03/2023 5:58 PM EDT Susanne Regalado MD LAB BLOOD ORDERABLES Performing Organization Address City/[facility] Co de Phone Number LABORATORY [facility] [address] [place] [address] * (ABNORMAL) GLUCOSE METER, POINT OF CARE (10/03/2023 4:44 PM EDT) Glucose Meter 132(H) 70 - 120 mg/dL 10/03/2023 4:52 PM EDT [facility] Blood Whole blood specimen / Unknown 10/03/2023 4:44 PM EDT 10/03/2023 4:52 PM EDT Jess Carranza MD LAB POINT OF CARE TEST DOCKED DEVICE UNSOLICITED RESULTS Performing Organization Address [facility] de Phone Number [facility] [address] [place] [phone] * (ABNORMAL) GLUCOSE METER, POINT OF CARE (10/03/2023 11:31 AM EDT) Glucose Meter 240(H) 70 - 120 mg/dL 10/03/2023 11:50 AM EDT [facility] Blood Whole blood specimen / Unknown 10/03/2023 11:31 AM EDT 10/03/2023 11:50 AM EDT Jess Carranza MD LAB POINT OF CARE TEST DOCKED DEVICE UNSOLICITED RESULTS Performing Organization Address [facility] de Phone Number [facility] [address] [place] [phone] * ECHO, COMPLETE (2D), TRANS-THORACIC (10/03/2023 9:40 AM EDT) LEFT VENTRICULAR EJECTION FRACTION 60 % [facility] 10/03/2023 9:07 AM EDT Jess Carranza MD [facility]ARDI[facility] * (ABNORMAL) GLUCOSE METER, POINT OF CARE (10/03/2023 7:18 AM EDT) Glucose Meter 184(H) 70 - 120 mg/dL 10/03/2023 8:13 AM EDT [facility] Blood Whole blood specimen / Unknown 10/03/2023 7:18 AM EDT 10/03/2023 8:13 AM EDT Jess Carranza MD LAB POINT OF CARE TEST DOCKED DEVICE UNSOLICITED RESULTS Performing Organization Address City/[facility]/ZIP Co de Phone Number [facility] [address] [place] [address] * (ABNORMAL) CBC (10/03/2023 4:53 AM EDT) WBC 13.99(H) 4.00 - 10.80 K/uL 10/03/2023 8:11 AM EDT LABORATORY GL RBC 2.90 3.85 - 5.15 M/uL 10/03/2023 8:11 AM EDT LABORATORY GL HGB 8.6(L) 12.0 - 15.3 g/dL 10/03/2023 8:11 AM EDT LABORATORY GL HCT 27.1(L) 36.0 - 45.2 % 10/03/2023 8:11 AM EDT LABORATORY GL MCV 93.4 81.5 - 97.5 fL 10/03/2023 8:11 AM EDT LABORATORY GL MCH 29.7 27.0 - 34.0 pg 10/03/2023 8:11 AM EDT LABORATORY GL MCHC 31.7 32.0 - 36.0 g/dL 10/03/2023 8:11 AM EDT LABORATORY GL RDW 18.2 11.5 - 15.5 % 10/03/2023 8:11 AM EDT LABORATORY GL PLT 310 140 - 400 K/uL 10/03/2023 8:11 AM EDT LABORATORY GL MPV 12.6 6.6 - 11.1 fL 10/03/2023 8:11 AM EDT LABORATORY GLH nRBCs 0 <=0 /100 WBCs 10/03/2023 8:11 AM EDT LABORATORY [facility] Blood Venous blood specimen / Unknown 10/03/2023 4:53 AM EDT 10/03/2023 5:08 AM EDT Jess Carranza MD LAB BLOOD ORDERABL ES Performing Organization Address [facility] de Phone Number LABORATORY [address] [address] * EXTRA LAVENDER TOP (10/03/2023 4:53 AM EDT) Blood Venous blood specimen / Unknown 10/03/2023 4:53 AM EDT 10/03/2023 5:08 AM EDT Jess Carranza MD LAB BLOOD ORDERABL ES Performing Organization Address [facility] de Phone Number LABORATORY [address] [address] * MAGNESIUM (10/03/2023 4:53 AM EDT) Magnesium 1.6 1.5 - 2.6 mg/dL 10/03/2023 5:28 AM EDT LABORATORY [facility] Blood Venous blood specimen / Unknown Venipuncture / Unknown 10/03/2023 4:53 AM EDT 10/03/2023 5:07 AM EDT Alen Larsen MD LAB BLOOD ORDERABLES Performing Organization Address City/[facility] de Phone Number LABORATORY [address] [address] * (ABNORMAL) PHOSPHORUS (10/03/2023 4:53 AM EDT) Phosphorus 5.0(H) 2.5 - 4.8 mg/dL 10/03/2023 5:28 AM EDT LABORATORY [facility] Blood Venous blood specimen / Unknown Venipuncture / Unknown 10/03/2023 4:53 AM EDT 10/03/2023 5:07 AM EDT Min Min Suzie SNIDER LAB BLOOD ORDERABLES LABORATORY [address] [address] * (ABNORMAL) BASIC METABOLIC PANEL (10/03/2023 4:53 AM EDT) BUN 67(H) 6 - 20 mg/dL 10/03/2023 5:28 AM EDT LABORATORY [facility] Creatinine 1.7(H) 0.5 - 1.0 mg/dL 10/03/2023 5:28 AM EDT LABORATORY [facility] Estimated Glomerular Filtration Rate 35(L) >=60 mL/min 10/03/2023 5:28 AM EDT LAB[facility]ATORY [facility] Comment:eGFR is calculated b ased on the CKD-EPI 2020 equation Sodium 143 135 - 146 mmol/L 10/03/2023 5:28 AM EDT LABORATORY [facility] Potassium 3.3(L) 3.5 - 5.1 mmol/L 10/03/2023 5:28 AM EDT LABORATORY [facility] Chloride 105 98 - 107 mmol/L 10/03/2023 5:28 AM EDT LABORATORY [facility] CO2 22 22 - 32 mmol/L 10/03/2023 5:28 AM EDT LABORATORY [facility] Anion Gap 16(H) 7 - 15 mmol/L 10/03/2023 5:28 AM EDT LABORATORY [facility] Glucose 101 70 - 120 mg/dL 10/03/2023 5:28 AM EDT LAB[facility]ATORY [facility] Calcium 8.7 8.4 - 10.2 mg/dL 10/03/2023 5:28 AM EDT LAB[facility]ATORY [facility] Blood Venous blood specimen / Unknown Venipuncture / Unknown 10/03/2023 4:53 AM EDT 10/03/2023 5:07 AM EDT Min Min Suzie SNIDER LAB BLOOD ORDERABLES LABORATORY [address] [address] * CALCIUM, IONIZED (10/03/2023 4:53 AM EDT) Calcium, Ionized 1.22 1.13 - 1.32 mmol/L 10/03/2023 5:39 AM EDT LABORATORY [facility] Comment:This test was develo ped and its performance characteristics dtermined by [employer]. It has not been cleared or approved by the [place] Food and Drug Administration Blood Venous blood specimen / Unknown Venipuncture / Unknown 10/03/2023 4:53 AM EDT 10/03/2023 5:07 AM EDT Jess Carranza MD LAB BLOOD ORDERABL [place] [address] * MANGANESE, BLOOD (10/03/2023 4:53 AM EDT) Manganese, Blood 11.6 4.2 - 16.5 mcg/L 10/07/2023 6:35 PM EDT [facility] Comment: This test was developed and its analytical performance characteristics have been determined by [employer]. It has not been cleared or approved by the FDA. This assay has been validated pursuant to the CLIA regulations and is used for clinical purposes. Test performed by: [facility] [address] [place] [id number] Forensic Nurse: Chris Lazcano M.D. Test Reported by [employer], [employer] [facility], [address] [place] [address] Armando Chanel M.D., Ph.D., Director of Laboratories , CLIA [id number] Blood Venous blood specimen / Unknown Venipuncture / Unknown 10/03/2023 4:53 AM EDT 10/03/2023 5:07 AM EDT Jess Carranza MD LAB BLOOD ORDERABL ES Performing Organization Address City/[facility]/ZIP Co de Phone Number [facility] [place] [id number] [place] [address] * HEMOGLOBIN A1C (10/03/2023 4:53 AM EDT) Hemoglobin A1C 5.5 4.0 - 5.6 % 10/03/2023 3:42 PM EDT LABORATORY [facility] Comment:The use of HbA1c to monitor glycemic status is based on normal hemoglobin and HbA composition. This test should not be used in patients with abnormal hemoglobin that affects the half life of the red blood cell or the in vivo glycation rates. Estimated Average Glucose 111 <126 mg/dL 10/03/2023 3:42 PM EDT LABORATORY [facility] Blood Venous blood specimen / Unknown Venipuncture / Unknown 10/03/2023 4:53 AM EDT 10/03/2023 5:07 AM EDT Jess Carranza MD LAB BLOOD ORDERABL ES Performing Organization Address City/[facility]/ZIP Co de Phone Number LABORATORY [facility] [address] [place] [address] * GLUCOSE METER, POINT OF CARE (10/03/2023 3:37 AM EDT) Glucose Meter 103 70 - 120 mg/dL 10/03/2023 4:05 AM EDT [facility] Blood Whole blood specimen / Unknown 10/03/2023 3:37 AM EDT 10/03/2023 4:05 AM EDT Jess Carranza MD LAB POINT OF CARE TEST DOCKED DEVICE UNSOLICITED RESULTS [facility] [address] [place] [address] * GLUCOSE METER, POINT OF CARE (10/02/2023 11:14 PM EDT) Glucose Meter 98 70 - 120 mg/dL 10/02/2023 11:43 PM EDT [facility] Blood Whole blood specimen / Unknown 10/02/2023 11:14 PM EDT 10/02/2023 11:43 PM EDT Jess Carranza MD LAB POINT OF CARE TEST DOCKED DEVICE UNSOLICITED RESULTS Performing Organization Address [facility] Co de Phone Number [facility] [address] [place] [address] * GLUCOSE METER, POINT OF CARE (10/02/2023 9:28 PM EDT) Glucose Meter 78 70 - 120 mg/dL 10/03/2023 8:24 AM EDT [facility] Blood Whole blood specimen / Unknown 10/02/2023 9:28 PM EDT 10/03/2023 8:24 AM EDT Jess Carranza MD LAB POINT OF CARE TEST DOCKED DEVICE UNSOLICITED RESULTS Performing Organization Address [facility] de Phone Number [facility] [address] [place] [address] * (ABNORMAL) GLUCOSE METER, POINT OF CARE (10/02/2023 8:11 PM EDT) Glucose Meter 62(L) 70 - 120 mg/dL 10/02/2023 8:13 PM EDT [facility] Blood Whole blood specimen / Unknown 10/02/2023 8:11 PM EDT 10/02/2023 8:13 PM EDT Jess Carranza MD LAB POINT OF CARE TEST DOCKED DEVICE UNSOLICITED RESULTS Performing Organization Address [facility] Co de Phone Number [facility] [address] [place] [address] * GLUCOSE METER, POINT OF CARE (10/02/2023 7:09 PM EDT) Glucose Meter 98 70 - 120 mg/dL 10/02/2023 7:13 PM EDT [facility] Blood Whole blood specimen / Unknown 10/02/2023 7:09 PM EDT 10/02/2023 7:13 PM EDT Jess Carranza MD LAB POINT OF CARE TEST DOCKED DEVICE UNSOLICITED RESULTS Performing Organization Address City/[facility]/ZIP Co de Phone Number [facility] [address] [place] [address] * (ABNORMAL) GLUCOSE METER, POINT OF CARE (10/02/2023 6:19 PM EDT) [facility] Signature Glucose Meter 67(L) 70 - 120 mg/dL 10/02/2023 6:30 PM EDT [facility] Blood Whole blood specimen / Unknown 10/02/2023 6:19 PM EDT 10/02/2023 6:30 PM EDT Jess Carranza MD LAB POINT OF CARE TEST DOCKED DEVICE UNSOLICITED RESULTS Performing Organization Address [facility] Co de Phone Number [facility] [address] [place] [address] * (ABNORMAL) BLOOD GAS, ARTERIAL (10/02/2023 5:51 PM EDT) Temperature 37.0 C 10/02/2023 6:03 PM EDT LABORATORY [facility] pH, Arterial 7.335(L) 7.350 - 7.450 units 10/02/2023 6:03 PM EDT LABORATORY [facility] pCO2, Arterial 40.6 35.0 - 45.0 mmHg 10/02/2023 6:03 PM EDT LABORATORY [facility] pO2, Arterial 62.9(L) 75.0 - 100.0 mmHg 10/02/2023 6:03 PM EDT LABORATORY [facility] Base Excess, Arterial -3.8(L) -2.0 - 2.0 mmol/L 10/02/2023 6:03 PM EDT LABORATORY [facility] HGB 8.1(L) 12.0 - 15.3 g/dL 10/02/2023 6:03 PM EDT LABORATORY [facility] Oxyhemoglobin, Arterial 87.5(L) 94.0 - 99.0 % total Hgb 10/02/2023 6:03 PM EDT LABORATORY [facility] Carboxyhemoglob in, Whole Blood 1.1 <=1.5 % total Hgb 10/02/2023 6:03 PM EDT LAB[facility]ORY [facility] Comment:Smokers: 0-9.0 % Methemoglobin, Whole Blood 2.0(H) <=1.5 % total Hgb 10/02/2023 6:03 PM EDT LABORATORY [facility] Reduced Hemoglobin, Arterial 9.4(H) 0.0 - 5.0 % total Hgb 10/02/2023 6:03 PM EDT LAB[facility]ATORY [facility] O2 Content, Arterial 10.1(L) 15.0 - 24.0 %vol 10/02/2023 6:03 PM EDT LABORATORY [facility] FiO2 Not Provided % 10/02/2023 6:03 PM EDT LAB[facility]ATORY [facility] O2 Flow, Arterial 5 L/min 10/02/2023 6:03 PM EDT LAB[facility]ATORY [facility] Bicarbonate, Whole Blood 21.1(L) 23.0 - 31.0 mmol/L 10/02/2023 6:03 PM EDT LAB[facility]ATORY [facility] Blood Arterial blood specimen / Unknown Arterial Puncture / Unknown 10/02/2023 5:51 PM EDT 10/02/2023 5:58 PM EDT Jess Carranza MD LAB BLOOD ORDERABL ES LABORATORY GL [address] [place] [address] * XR CHEST 1 VIEW (10/02/2023 5:49 PM EDT) Anatomical Region Laterality Modality Chest Digital Radiogra phy 10/02/2023 5:42 PM EDT Impressions 10/02/2023 6:16 PM EDT IMPRESSION: No change in the mixed airspace opacities bilaterally secondary to edema and/or pneumonia. THIS DOCUMENT HAS BEEN ELECTRONICALLY SIGNED BY DARIN VILLELA MD Narrative 10/02/2023 6:16 PM EDT PROCEDURE INFORMATION: Exam: XR Chest Exam date and time: 10/02/2023 5:42 PM Age: 58 years old Clinical indication: Other: SOB; Additional info: Lethargy, abnormal breathing pattern TECHNIQUE: Imaging protocol: Radiologic exam of the chest. Views: 1 view. COMPARISON: DX XR CHEST 1 VIEW 10/01/2023 11:06 PM FINDINGS: Tubes, catheters and devices: Left MediPort catheter is in stable position with the tip in the cavoatrial junction. Dumbbell-shaped device which likely represents a cystogastrostomy is seen in the left upper quadrant. Lungs: Redemonstration of stable diffuse ground-glass and interstitial opacities bilaterally greater on the right. Pleural spaces: Unremarkable. No pleural effusion. No pneumothorax. Heart/Mediastinum: Stable cardiomediastinal silhouette. Bones/joints: Degenerative changes with S-shaped scoliosis of the thoracic spine. Organs: Surgical clips in the right upper quadrant from prior cholecystectomy. Procedure Note Darin Villela MD - 10/02/2023 PROCEDURE INFORMATION: Exam: XR Chest Exam date and time: 10/02/2023 5:42 PM Age: 58 years old Clinical indication: Other: SOB; Additional info: Lethargy, abnormalbreathing pattern TECHNIQUE: Imaging protocol: Radiologic exam of the chest. Views: 1 view. COMPARISON: DX XR CHEST 1 VIEW 10/01/2023 11:06 PM FINDINGS: Tubes, catheters and devices: Left MediPort catheter is in stable positionwith the tip in the cavoatrial junction. Dumbbell-shaped device which likely represents a cystogastrostomy is seen in the left upper quadrant. Lungs: Redemonstration of stable diffuse ground-glass and interstitial opacities bilaterally greater on the right. Pleural spaces: Unremarkable. No pleural effusion. No pneumothorax. Heart/Mediastinum: Stable cardiomediastinal silhouette. Bones/joints: Degenerative changes with S-shaped scoliosis of thethoracic spine. Organs: Surgical clips in the right upper quadrant from priorcholecystectomy. IMPRESSION IMPRESSION: No change in the mixed airspace opacities bilaterally secondary to edemaand/or pneumonia. THIS DOCUMENT HAS BEEN ELECTRONICALLY SIGNED BY DARIN VILLELA MD Jess Carranza MD RADIOLOGY (RAD GEN ERAL) * (ABNORMAL) GLUCOSE METER, POINT OF CARE (10/02/2023 5:41 PM EDT) Glucose Meter 163(H) 70 - 120 mg/dL 10/02/2023 5:46 PM EDT [facility] Blood Whole blood specimen / Unknown 10/02/2023 5:41 PM EDT 10/02/2023 5:46 PM EDT Jess Carranza MD LAB POINT OF CARE TEST DOCKED DEVICE UNSOLICITED RESULTS Performing Organization Address [facility] Co de Phone Number [facility] [address] [place] [address] * (ABNORMAL) GLUCOSE METER, POINT OF CARE (10/02/2023 5:18 PM EDT) Glucose Meter 30(LL) 70 - 120 mg/dL 10/03/2023 8:40 AM EDT [facility] Device Comment Notified Provider 10/03/2023 8:40 AM EDT [facility] Blood Whole blood specimen / Unknown 10/02/2023 5:18 PM EDT 10/03/2023 8:40 AM EDT Jess Carranza MD LAB POINT OF CARE TEST DOCKED DEVICE UNSOLICITED RESULTS Performing Organization Address [facility] de Phone Number [facility] [address] [place] [address] * MRI T SPINE W WO CONTRAST (10/02/2023 5:00 PM EDT) Anatomical Region Laterality Modality Vertebra, Tspine Magnetic Resona nce 10/02/2023 5:22 PM EDT Impressions 10/02/2023 5:20 PM EDT IMPRESSION: No obvious evidence of demyelinating disease involving the thoracic spinal cord, although evaluation is severely limited by motion degradation. If there is persistent concern for potential demyelinating disease, a repeat examination under sedation should be considered. Midthoracic dextroscoliosis and thoracolumbar levoscoliosis as described, associated with chronic multilevel vertebral body wedging and asymmetric disc space widening. Limited characterization of spondylitic changes at the individual disc levels. No evidence for severe thoracic spinal canal stenosis. Narrative 10/02/2023 5:20 PM EDT EXAM: MRI T SPINE W WO CONTRAST HISTORY: Acute urinary retention, unsteady gait, concern for potential demyelinating disease TECHNIQUE: MRI of the thoracic spine was performed with and without intravenous Gadavist contrast COMPARISON: CT abdomen/pelvis 07/31/2023, MRI cervical spine 09/02/2023 FINDINGS: ALIGNMENT: Exaggeration of the midthoracic kyphosis. Severe dextroscoliosis centered at T7-T8 and levoscoliosis centered T12-L1. Stepwise right lateral listhesis of T10 on T11 and T11 on T12. BONES: Chronic anterior wedging of the T12 and L1 vertebral bodies with less than 50% total height loss. Mild chronic left lateral wedging of the T7 and T8 vertebral bodies and chronic right lateral wedging of the T11-L1 vertebral bodies. No aggressive appearing enhancing osseous lesions. DISCS: Multilevel disc desiccation and associated height loss. Asymmetric, chronic splaying of the right T6-T9 and left T10-L1 disc spaces. Scattered Schmorl's nodes throughout the thoracic spine. Modic 2 changes marginating the T12-L1 disc space. No abnormal intradiscal enhancement. SPINAL CORD: Extremely limited evaluation of the thoracic spinal cord due to extensive motion degradation. No obvious areas of abnormal enhancement, enhancement, or volume loss involving the thoracic spinal cord. Left lateral displacement of the upper/midthoracic cord related to scoliotic curvature of the spine. Grossly normal of the conus medullaris which terminates at around the level of T12-L1. No large epidural fluid collections. DISC LEVELS: Limited characterization of the individual disc levels due to motion degradation. Multilevel thoracic spondylosis with posterior disc bulges, facet arthrosis, and ligamentous thickening. No severe spinal canal stenosis appreciated. PARASPINAL SOFT TISSUES: Diffuse atrophy of the dorsal paraspinal musculature. Nondiagnostic evaluation of the upper abdominal contents. VISUALIZED INTRATHORACIC STRUCTURES: No lobar consolidations. Procedure Note Chris Perla MD - 10/02/2023 EXAM: MRI T SPINE W WO CONTRAST HISTORY: Acute urinary retention, unsteady gait, concern for potentialdemyelinating disease TECHNIQUE: MRI of the thoracic spine was performed with and without intravenousGadavist contrast COMPARISON: CT abdomen/pelvis 07/31/2023, MRI cervical spine 09/02/2023 FINDINGS: ALIGNMENT: Exaggeration of the midthoracic kyphosis. Severedextroscoliosis centered at T7-T8 and levoscoliosis centered T12-L1.Stepwise right lateral listhesis of T10 on T11 and T11 on T12. BONES: Chronic anterior wedging of the T12 and L1 vertebral bodies withless than 50% total height loss. Mild chronic left lateral wedging of theT7 and T8 vertebral bodies and chronic right lateral wedging of the [id number] bodies. No aggressive appearing enhancing osseous lesions. DISCS: Multilevel disc desiccation and associated height loss.Asymmetric, chronic splaying of the right T6-T9 and left T10-L1 discspaces. Scattered Schmorl's nodes throughout the thoracic spine. Modic 2changes marginating the T12-L1 disc space. No abnormal intradiscalenhancement. SPINAL CORD: Extremely limited evaluation of the thoracic spinal cord dueto extensive motion degradation. No obvious areas of abnormalenhancement, enhancement, or volume loss involving the thoracic spinalcord. Left lateral displacement of the upper/midthoracic cord related toscoliotic curvature of the spine. Grossly normal of the conus medullariswhich terminates at around the level of T12-L1. No large epidural fluidcollections. DISC LEVELS: Limited characterization of the individual disc levels due tomotion degradation. Multilevel thoracic spondylosis with posterior discbulges, facet arthrosis, and ligamentous thickening. No severe spinalcanal stenosis appreciated. PARASPINAL SOFT TISSUES: Diffuse atrophy of the dorsal paraspinalmusculature. Nondiagnostic evaluation of the upper abdominal contents. VISUALIZED INTRATHORACIC STRUCTURES: No lobar consolidations. IMPRESSION IMPRESSION: No obvious evidence of demyelinating disease involving the thoracic spinalcord, although evaluation is severely limited by motion degradation. Ifthere is persistent concern for potential demyelinating disease, a repeatexamination under sedation should be considered. Midthoracic dextroscoliosis and thoracolumbar levoscoliosis as described,associated with chronic multilevel vertebral body wedging and asymmetricdisc space widening. Limited characterization of spondylitic changes at the individual disclevels. No evidence for severe thoracic spinal canal stenosis. Jess Carranza MD RAD MRI-MRA * GLUCOSE METER, POINT OF CARE (10/02/2023 2:18 PM EDT) Glucose Meter 111 70 - 120 mg/dL 10/02/2023 2:20 PM EDT [facility] Blood Whole blood specimen / Unknown 10/02/2023 2:18 PM EDT 10/02/2023 2:20 PM EDT Jess Carranza MD LAB POINT OF CARE TEST DOCKED DEVICE UNSOLICITED RESULTS Performing Organization Address [facility] Co de Phone Number [facility] [address] [place] [address] * (ABNORMAL) GLUCOSE METER, POINT OF CARE (10/02/2023 12:05 PM EDT) Glucose Meter 438(H) 70 - 120 mg/dL 10/02/2023 12:13 PM EDT [facility] Blood Whole blood specimen / Unknown 10/02/2023 12:05 PM EDT 10/02/2023 12:13 PM EDT Jess Carranza MD LAB POINT OF CARE TEST DOCKED DEVICE UNSOLICITED RESULTS Performing Organization Address [facility] Phone Number [facility] [address] [place] [address] * (ABNORMAL) GLUCOSE METER, POINT OF CARE (10/02/2023 6:45 AM EDT) Glucose Meter 163(H) 70 - 120 mg/dL 10/02/2023 7:00 AM EDT [facility] Blood Whole blood specimen / Unknown 10/02/2023 6:45 AM EDT 10/02/2023 7:00 AM EDT Jess Carranza MD LAB POINT OF CARE TEST DOCKED DEVICE UNSOLICITED RESULTS Performing Organization Address [facility] de Phone Number [facility] [address] [place] [address] * FOLIC ACID (10/02/2023 6:13 AM EDT) Folic Acid 13.9 >4.5 ng/mL 10/02/2023 10:04 PM EDT LAB[facility]ATORY [facility] Blood Venous blood specimen / Unknown Venipuncture / Unknown 10/02/2023 6:13 AM EDT 10/02/2023 6:16 AM EDT Jess Carranza MD LAB BLOOD ORDERABL ES Performing Organization Address City/[facility]/ZIP Co de Phone Number LABORATORY [facility] [address] [place] [address] * VITAMIN B12 (10/02/2023 6:13 AM EDT) Vitamin B12 697 232 - 1,245 pg/mL 10/02/2023 10:04 PM EDT [facility] Blood Venous blood specimen / Unknown Venipuncture / Unknown 10/02/2023 6:13 AM EDT 10/02/2023 6:16 AM EDT Jess Carranza MD LAB BLOOD ORDERABL ES Performing Organization Address [facility] de Phone Number LABORATORY [facility] [address] [place] [address] * (ABNORMAL) IRON SCREEN, INCLUDING TIBC (10/02/2023 6:13 AM EDT) Iron 10(L) 33 - 151 ug/dL 10/02/2023 10:57 PM EDT [facility] Iron Binding Capacity 229(L) 250 - 425 ug/dL 10/02/2023 10:57 PM EDT [facility] Transferrin Saturation Percent 4(L) 15 - 55 % 10/02/2023 10:57 PM EDT [facility] Blood Venous blood specimen / Unknown Venipuncture / Unknown 10/02/2023 6:13 AM EDT 10/02/2023 6:16 AM EDT Jess Carranza MD LAB BLOOD ORDERABL ES Performing Organization Address City/[facility]/ZIP Co de Phone Number LABORATORY C [address] [place] [address] * MAGNESIUM (10/02/2023 6:13 AM EDT) Magnesium 1.9 1.5 - 2.6 mg/dL 10/02/2023 7:26 AM EDT LAB[facility]ATORY [facility] Blood Venous blood specimen / Unknown Venipuncture / Unknown 10/02/2023 6:13 AM EDT 10/02/2023 6:16 AM EDT Min Min Suize SNIDER LAB BLOOD ORDERABLES Performing Organization Address City/[facility]/ZIP Co de Phone Number LABORATORY [address] [address] * PHOSPHORUS (10/02/2023 6:13 AM EDT) Phosphorus 3.4 2.5 - 4.8 mg/dL 10/02/2023 7:26 AM EDT LABORATORY [facility] Blood Venous blood specimen / Unknown Venipuncture / Unknown 10/02/2023 6:13 AM EDT 10/02/2023 6:16 AM EDT Min Min Suzie SNIDER LAB BLOOD ORDERABLES Performing Organization Address [facility]/ZIP Co de Phone Number LABORATORY [address] [address] * (ABNORMAL) BASIC METABOLIC PANEL (10/02/2023 6:13 AM EDT) BUN 71(H) 6 - 20 mg/dL 10/02/2023 7:26 AM EDT [facility]ORY [facility] Creatinine 1.5(H) 0.5 - 1.0 mg/dL 10/02/2023 7:26 AM EDT [facility] Estimated Glomerular Filtration Rate 40(L) >=60 mL/min 10/02/2023 7:26 AM EDT [facility] Comment:eGFR is calculated b ased on the CKD-EPI 2020 equation Sodium 139 135 - 146 mmol/L 10/02/2023 7:26 AM EDT [facility] Potassium 3.6 3.5 - 5.1 mmol/L 10/02/2023 7:26 AM EDT [facility] Chloride 104 98 - 107 mmol/L 10/02/2023 7:26 AM EDT [facility] CO2 18(L) 22 - 32 mmol/L 10/02/2023 7:26 AM EDT LAB[facility]ORY [facility] Anion Gap 17(H) 7 - 15 mmol/L 10/02/2023 7:26 AM EDT LABORATORY [facility] Glucose 172(H) 70 - 120 mg/dL 10/02/2023 7:26 AM EDT LABORATORY [facility] Calcium 8.3(L) 8.4 - 10.2 mg/dL 10/02/2023 7:26 AM EDT LABORATORY [facility] Blood Venous blood specimen / Unknown Venipuncture / Unknown 10/02/2023 6:13 AM EDT 10/02/2023 6:16 AM EDT Alen Larsen MD LAB BLOOD ORDERABLES Performing Organization Address [facility] de Phone Number LABORATORY [address] [address] * (ABNORMAL) PROCALCITONIN (10/02/2023 6:13 AM EDT) Procalcitonin 0.55(H) <0.10 ng/mL 10/02/2023 7:15 AM EDT LABORATORY [facility] Blood Venous blood specimen / Unknown Venipuncture / Unknown 10/02/2023 6:13 AM EDT 10/02/2023 6:16 AM EDT Narrative LABORATORY [facility] - 10/02/2023 7:15 AM EDT Less than 0.5 ng/mL: Low risk for progression to sepsis. Review patients condition for localized infections. 0.5 to 2.0 ng/mL: Intermediate risk for progresion to sepsis. Review underlying conditions. Recommend repeat PCT after 6 hours has elapsed. Greater than 2.0 ng/mL: high risk for progression to sepsis unless other causes are known. Jess Carranza MD LAB BLOOD ORDERABL ES Performing Organization Address [facility] Co de Phone Number LABORATORY [address] [address] * CALCIUM, IONIZED (10/02/2023 6:13 AM EDT) Calcium, Ionized 1.22 1.13 - 1.32 mmol/L 10/02/2023 6:52 AM EDT LABORATORY [facility] Comment:This test was develo ped and its performance characteristics dtermined by [employer]. It has not been cleared or approved by the [place] Food and Drug Administration Blood Venous blood specimen / Unknown Venipuncture / Unknown 10/02/2023 6:13 AM EDT 10/02/2023 6:16 AM EDT Jess Carranza MD LAB BLOOD ORDERABL ES LABORATORY [address] [address] * (ABNORMAL) CBC (10/02/2023 6:08 AM EDT) WBC 15.09(H) 4.00 - 10.80 K/uL 10/02/2023 7:59 AM EDT LABORATORY [facility] RBC 2.93 3.85 - 5.15 M/uL 10/02/2023 7:59 AM EDT LABORATORY [facility] HGB 8.7(L) 12.0 - 15.3 g/dL 10/02/2023 7:59 AM EDT LABORATORY [facility] HCT 27.8(L) 36.0 - 45.2 % 10/02/2023 7:59 AM EDT LABORATORY [facility] MCV 94.9 81.5 - 97.5 fL 10/02/2023 7:59 AM EDT LABORATORY [facility] MCH 29.7 27.0 - 34.0 pg 10/02/2023 7:59 AM EDT LABORATORY [facility] MCHC 31.3 32.0 - 36.0 g/dL 10/02/2023 7:59 AM EDT LABORATORY [facility] RDW 19.0 11.5 - 15.5 % 10/02/2023 7:59 AM EDT LABORATORY [facility] PLT 305 140 - 400 K/uL 10/02/2023 7:59 AM EDT LABORATORY [facility] MPV 12.2 6.6 - 11.1 fL 10/02/2023 7:59 AM EDT LABORATORY GL nRBCs 0 <=0 /100 WBCs 10/02/2023 7:59 AM EDT LABORATORY GL Blood Venous blood specimen / Unknown Venipuncture / Unknown 10/02/2023 6:08 AM EDT 10/02/2023 6:16 AM EDT Jess Carranza MD LAB BLOOD ORDERABL ES Performing Organization Address [facility]/ZIP Co de Phone Number LABORATORY [address] [address] * EXTRA LAVENDER TOP (10/02/2023 6:08 AM EDT) Blood Venous blood specimen / Unknown Venipuncture / Unknown 10/02/2023 6:08 AM EDT 10/02/2023 6:16 AM EDT Jess Carranza MD LAB BLOOD ORDERABL ES Performing Organization Address [facility] Co de Phone Number LABORATORY [address] [address] * (ABNORMAL) BLOOD GAS, ARTERIAL (10/02/2023 6:05 AM EDT) Temperature 37.0 C 10/02/2023 6:17 AM EDT LAB[facility]ORY [facility] pH, Arterial 7.362 7.350 - 7.450 units 10/02/2023 6:17 AM EDT LAB[facility] pCO2, Arterial 34.0(L) 35.0 - 45.0 mmHg 10/02/2023 6:17 AM EDT [facility] pO2, Arterial 83.1 75.0 - 100.0 mmHg 10/02/2023 6:17 AM EDT [facility] Base Excess, Arterial -5.4(L) -2.0 - 2.0 mmol/L 10/02/2023 6:17 AM EDT [facility] HGB 8.7(L) 12.0 - 15.3 g/dL 10/02/2023 6:17 AM EDT [facility] Oxyhemoglobin, Arterial 91.6(L) 94.0 - 99.0 % total Hgb 10/02/2023 6:17 AM EDT [facility] Carboxyhemoglob in, Whole Blood 1.0 <=1.5 % total Hgb 10/02/2023 6:17 AM EDT [facility] Comment:Smokers: 0-9.0 % Methemoglobin, Whole Blood 2.2(H) <=1.5 % total Hgb 10/02/2023 6:17 AM EDT LAB[facility] Reduced Hemoglobin, Arterial 5.2(H) 0.0 - 5.0 % total Hgb 10/02/2023 6:17 AM EDT [facility] O2 Content, Arterial 11.3(L) 15.0 - 24.0 %vol 10/02/2023 6:17 AM EDT LAB[facility] FiO2 40 % 10/02/2023 6:17 AM EDT [facility] Comment:06/01 bipap O2 Flow, Arterial Not Provided L/min 10/02/2023 6:17 AM EDT [facility] Bicarbonate, Whole Blood 18.8(L) 23.0 - 31.0 mmol/L 10/02/2023 6:17 AM EDT [facility] Blood Arterial blood specimen / Unknown Arterial Puncture / Unknown 10/02/2023 6:05 AM EDT 10/02/2023 6:07 AM EDT Darian SALMERON LAB BLOOD ORDER [facility] [address] [address] * (ABNORMAL) GLUCOSE METER, POINT OF CARE (10/02/2023 12:26 AM EDT) Glucose Meter 159(H) 70 - 120 mg/dL 10/02/2023 12:35 AM EDT [facility] Blood Whole blood specimen / Unknown 10/02/2023 12:26 AM EDT 10/02/2023 12:35 AM EDT Jess Carranza MD LAB POINT OF CARE TEST DOCKED DEVICE UNSOLICITED RESULTS Performing Organization Address [facility]/ZIP Co de Phone Number [facility] [address] [place] [id number] * (ABNORMAL) BLOOD GAS, ARTERIAL (10/02/2023 12:07 AM EDT) Temperature 37.0 C 10/02/2023 12:14 AM EDT LAB[facility]ORY [facility] pH, Arterial 7.377 7.350 - 7.450 units 10/02/2023 12:14 AM EDT LAB[facility]ORY [facility] pCO2, Arterial 32.1(L) 35.0 - 45.0 mmHg 10/02/2023 12:14 AM EDT [facility] pO2, Arterial 68.4(L) 75.0 - 100.0 mmHg 10/02/2023 12:14 AM EDT LAB[facility]ORY [facility] Base Excess, Arterial -5.6(L) -2.0 - 2.0 mmol/L 10/02/2023 12:14 AM EDT LAB[facility]ORY [facility] HGB 8.5(L) 12.0 - 15.3 g/dL 10/02/2023 12:14 AM EDT LAB[facility] Oxyhemoglobin, Arterial 89.1(L) 94.0 - 99.0 % total Hgb 10/02/2023 12:14 AM EDT LAB[facility] Carboxyhemoglob in, Whole Blood 1.2 <=1.5 % total Hgb 10/02/2023 12:14 AM EDT [facility] Comment:Smokers: 0-9.0 % Methemoglobin, Whole Blood 2.0(H) <=1.5 % total Hgb 10/02/2023 12:14 AM EDT LAB[facility] Reduced Hemoglobin, Arterial 7.7(H) 0.0 - 5.0 % total Hgb 10/02/2023 12:14 AM EDT [facility] O2 Content, Arterial 10.7(L) 15.0 - 24.0 %vol 10/02/2023 12:14 AM EDT LAB[facility] FiO2 Not Provided % 10/02/2023 12:14 AM EDT [facility] O2 Flow, Arterial 5 L/min 10/02/2023 12:14 AM EDT [facility] Bicarbonate, Whole Blood 18.4(L) 23.0 - 31.0 mmol/L 10/02/2023 12:14 AM EDT [facility] Blood Arterial blood specimen / Unknown Arterial Puncture / Unknown 10/02/2023 12:07 AM EDT 10/02/2023 12:10 AM EDT Darian SALMERON LAB BLOOD ORDER [facility] [address] [id number] * XR CHEST 1 VIEW (10/01/2023 11:18 PM EDT) Anatomical Region Laterality Modality Chest Digital Radiogra phy 10/01/2023 11:0 6 PM EDT Impressions 10/02/2023 12:27 AM EDT IMPRESSION: Persistent moderate vascular congestion/bilateral diffuse airspace disease. THIS DOCUMENT HAS BEEN ELECTRONICALLY SIGNED BY HANDY HUIZAR MD Narrative 10/02/2023 12:27 AM EDT PROCEDURE INFORMATION: Exam: XR Chest Exam date and time: 10/01/2023 11:06 PM Age: 58 years old Clinical indication: Other: Worsening dyspnea TECHNIQUE: Imaging protocol: Radiologic exam of the chest. Views: 1 view. COMPARISON: DX XR CHEST 1 VIEW 10/01/2023 4:45 AM FINDINGS: Lungs: Persistent moderate vascular congestion/bilateral diffuse airspace disease. Left Wkmnch-C-Cqvb catheter noted. Pleural spaces: No pleural effusion. No pneumothorax. Heart/Mediastinum: No cardiomegaly. Bones/joints: Degenerative changes with scoliosis. Procedure Note Handy Huizar MD - 10/02/2023 PROCEDURE INFORMATION: Exam: XR Chest Exam date and time: 10/01/2023 11:06 PM Age: 58 years old Clinical indication: Other: Worsening dyspnea TECHNIQUE: Imaging protocol: Radiologic exam of the chest. Views: 1 view. COMPARISON: DX XR CHEST 1 VIEW 10/01/2023 4:45 AM FINDINGS: Lungs: Persistent moderate vascular congestion/bilateral diffuse airspace disease. Left Nkjdnd-E-Hwmf catheter noted. Pleural spaces: No pleural effusion. No pneumothorax. Heart/Mediastinum: No cardiomegaly. Bones/joints: Degenerative changes with scoliosis. IMPRESSION IMPRESSION: Persistent moderate vascular congestion/bilateral diffuse airspacedisease. THIS DOCUMENT HAS BEEN ELECTRONICALLY SIGNED BY HANDY HUIZAR MD Adiel Toussaint MD RADIOLOGY (RAD GEN ERAL) * (ABNORMAL) CBC (10/01/2023 9:48 PM EDT) WBC 16.47(H) 4.00 - 10.80 K/uL 10/01/2023 10:01 PM EDT LABORATORY [facility] RBC 3.24 3.85 - 5.15 M/uL 10/01/2023 10:01 PM EDT LABORATORY [facility] HGB 9.8(L) 12.0 - 15.3 g/dL 10/01/2023 10:01 PM EDT LABORATORY [facility] HCT 30.7(L) 36.0 - 45.2 % 10/01/2023 10:01 PM EDT LABORATORY [facility] MCV 94.8 81.5 - 97.5 fL 10/01/2023 10:01 PM EDT LABORATORY [facility] MCH 30.2 27.0 - 34.0 pg 10/01/2023 10:01 PM EDT LABORATORY [facility] MCHC 31.9 32.0 - 36.0 g/dL 10/01/2023 10:01 PM EDT LABORATORY [facility] RDW 19.3 11.5 - 15.5 % 10/01/2023 10:01 PM EDT LABORATORY [facility] PLT 308 140 - 400 K/uL 10/01/2023 10:01 PM EDT LABORATORY [facility] MPV 11.9 6.6 - 11.1 fL 10/01/2023 10:01 PM EDT LABORATORY [facility] nRBCs 0 <=0 /100 WBCs 10/01/2023 10:01 PM EDT LABORATORY [facility] Blood Venous blood specimen / Unknown Venipuncture / Unknown 10/01/2023 9:48 PM EDT 10/01/2023 9:59 PM EDT Jess Carranza MD LAB BLOOD ORDERABL ES LABORATORY [facility] [address] [place] [address] * (ABNORMAL) GLUCOSE METER, POINT OF CARE (10/01/2023 5:34 PM EDT) Glucose Meter 139(H) 70 - 120 mg/dL 10/01/2023 5:36 PM EDT [facility] Blood Whole blood specimen / Unknown 10/01/2023 5:34 PM EDT 10/01/2023 5:36 PM EDT Jess Carranza MD LAB POINT OF CARE TEST DOCKED DEVICE UNSOLICITED RESULTS Performing Organization Address [facility] de Phone Number [facility] [address] [place] [address] * MRSA SCREEN, PCR (10/01/2023 2:03 PM EDT) Pathologist [facility] MRSA PCR Result Negative Negative 8:55 PM EDT LABORATORY [facility] Comment:No Methicillin resis tant Staphylococcus aureus detected by PCR (amplified probe). Upper Respiratory Swab of internal nose / Unknown Non-blood Collection / Unknown 10/01/2023 2:03 PM EDT 10/01/2023 2:13 PM EDT Jess Carranza MD LAB MICRO - GENERA L ORDERABLES Performing Organization Address [facility] de Phone Number LABORATORY [facility] [address] [place] [address] * LEGIONELLA ANTIGEN, URINE (10/01/2023 2:03 PM EDT) Pathologist [facility] Legionella Antigen, Urine Negative Negative 10/02/2023 10:21 AM EDT LABORATORY [facility] Comment:Presumptive negative for L. pneumophila serogroup 1 antigens. A negative result does not rule out the possibility of Legionella infection due to other serogroups or species of Legionella. Urine Urine specimen obtained by clean catch procedure / Unknown Non-blood Collection / Unknown 10/01/2023 2:03 PM EDT 10/01/2023 2:13 PM EDT Jess Carranza MD LAB URINE ORDERABL ES Performing Organization Address [facility] de Phone Number LABORATORY [facility] [address] [place] [address] * (ABNORMAL) CBC (10/01/2023 12:27 PM EDT) Pathologist [facility] WBC 17.00(H) 4.00 - 10.80 K/uL 10/01/2023 12:35 PM EDT LABORATORY [facility] RBC 2.79 3.85 - 5.15 M/uL 10/01/2023 12:35 PM EDT LABORATORY [facility] HGB 8.4(L) 12.0 - 15.3 g/dL 10/01/2023 12:35 PM EDT LABORATORY [facility] HCT 26.4(L) 36.0 - 45.2 % 10/01/2023 12:35 PM EDT LABORATORY [facility] MCV 94.6 81.5 - 97.5 fL 10/01/2023 12:35 PM EDT LABORATORY [facility] MCH 30.1 27.0 - 34.0 pg 10/01/2023 12:35 PM EDT LABORATORY [facility] MCHC 31.8 32.0 - 36.0 g/dL 10/01/2023 12:35 PM EDT LABORATORY [facility] RDW 17.9 11.5 - 15.5 % 10/01/2023 12:35 PM EDT LABORATORY [facility] PLT 274 140 - 400 K/uL 10/01/2023 12:35 PM EDT LABORATORY [facility] MPV 11.7 6.6 - 11.1 fL 10/01/2023 12:35 PM EDT LABORATORY [facility] nRBCs 0 <=0 /100 WBCs 10/01/2023 12:35 PM EDT LABORATORY [facility] Blood Venous blood specimen / Unknown Venipuncture / Unknown 10/01/2023 12:27 PM EDT 10/01/2023 12:32 PM EDT Jess Carranza MD LAB BLOOD ORDERABL ES LABORATORY [facility] [address] [place] [address] * TRANSFUSE PACKED RED BLOOD CELLS (10/01/2023 11:45 AM EDT) [facility] CEL[facility] BANK TRANFUSE OR DERABLES * TRANSFUSE PACKED RED BLOOD CELLS (10/01/2023 11:45 AM EDT) [facility] CLEARY BANK TRANFUSE OR DERABLES * (ABNORMAL) GLUCOSE METER, POINT OF CARE (10/01/2023 11:22 AM EDT) [facility] Glucose Meter 162(H) 70 - 120 mg/dL 10/01/2023 12:00 PM EDT [facility] Blood Whole blood specimen / Unknown 10/01/2023 11:22 AM EDT 10/01/2023 12:00 PM EDT Jess Carranza MD LAB POINT OF CARE TEST DOCKED DEVICE UNSOLICITED RESULTS Performing Organization Address City/[facility] Co de Phone Number [facility] [address] [place] [phone] * TYPE AND SCREEN (10/01/2023 7:36 AM EDT) [facility] ABO A 10/01/2023 8:30 AM EDT LABORATORY [facility] BLOOD BANK Rh Positive 10/01/2023 8:30 AM EDT LABORATORY [facility] BLOOD BANK Red Blood Cell Antibody Screen Negative 10/01/2023 8:30 AM EDT LABORATORY [facility] BLOOD BANK Specimen Expiration Date 10/04/2023 23:59 10/01/2023 8:30 AM EDT LABORATORY [facility] BLOOD BANK Blood Venous blood specimen / Unknown Venipuncture / Unknown 10/01/2023 7:36 AM EDT 10/01/2023 7:47 AM EDT Adiel Toussaint MD LAB BLOOD BANK LEANNE T ORDERABLES Performing Organization Address City/[facility] Co de Phone Number LABORATORY [facility] BLOOD BANK [address] [place] [phone] * (ABNORMAL) CBC (10/01/2023 7:36 AM EDT) [facility] [facility] WBC 17.02(H) 4.00 - 10.80 K/uL 10/01/2023 7:49 AM EDT LABORATORY [facility] RBC 2.27 3.85 - 5.15 M/uL 10/01/2023 7:49 AM EDT LABORATORY [facility] HGB 7.2(L) 12.0 - 15.3 g/dL 10/01/2023 7:49 AM EDT LABORATORY [facility] HCT 23.0(L) 36.0 - 45.2 % 10/01/2023 7:49 AM EDT LABORATORY [facility] MCV 101.3 81.5 - 97.5 fL 10/01/2023 7:49 AM EDT LABORATORY [facility] MCH 31.7 27.0 - 34.0 pg 10/01/2023 7:49 AM EDT LABORATORY [facility] MCHC 31.3 32.0 - 36.0 g/dL 10/01/2023 7:49 AM EDT LABORATORY [facility] RDW 14.2 11.5 - 15.5 % 10/01/2023 7:49 AM EDT LABORATORY [facility] PLT 289 140 - 400 K/uL 10/01/2023 7:49 AM EDT LABORATORY [facility] MPV 11.8 6.6 - 11.1 fL 10/01/2023 7:49 AM EDT LABORATORY [facility] nRBCs 0 <=0 /100 WBCs 10/01/2023 7:49 AM EDT LABORATORY [facility] Blood Venous blood specimen / Unknown Venipuncture / Unknown 10/01/2023 7:36 AM EDT 10/01/2023 7:47 AM EDT Benny Agee MD LAB BLOOD ORDERABLES LABORATORY [address] [address] * (ABNORMAL) GLUCOSE METER, POINT OF CARE (10/01/2023 6:15 AM EDT) [facility] Glucose Meter 135(H) 70 - 120 mg/dL 10/01/2023 6:48 AM EDT [facility] Blood Whole blood specimen / Unknown 10/01/2023 6:15 AM EDT 10/01/2023 6:48 AM EDT Aris Bacon DO LAB POINT OF CARE TE ST DOCKED DEVICE UNSOLICITED RESULTS Performing Organization Address City/[facility] Co de Phone Number [facility] [address] [place] [id number] * PREPARE PACKED RED BLOOD CELLS (10/01/2023 5:55 AM EDT) Unit Product Code [id number] LABORATORY [facility] BLOOD BANK Unit Number [id number] LABO RATORY [facility] BLOOD BANK Unit ABO A LABORATORY [facility] BLOOD BANK Unit Rh POS LABORATORY [facility] BLOOD BANK Unit Crossmatch Compatible LABORATORY [facility] BLOOD BANK Unit Status PT LABORATO RY [facility] BLOOD BANK Unit Blood Type APOS LABORATORY [facility] BLOOD BANK Unit Expiration [id number] LAB[facility]ATORY [facility] BLOOD BANK Unit Barcode [id number] LABORAT ORY [facility] BLOOD BANK 10/01/2023 5:55 AM EDT Benny Agee MD BLD BANK PRODUCT ORD ERABLES Performing Organization Address City/[facility]/ZIP Co de Phone Number LABORATORY [facility] BLOOD BANK [address] [place] [phone] * LACTATE (10/01/2023 5:37 AM EDT) [facility] Lactate 0.9 0.4 - 2.0 mmol/L 10/01/2023 6:01 AM EDT LABORATORY [facility] Blood Arterial blood specimen / Unknown Arterial Puncture / Unknown 10/01/2023 5:37 AM EDT 10/01/2023 5:42 AM EDT Darian SALMERON LAB BLOOD ORDER REYNALDO Performing Organization Address City/[facility]/ZIP Co de Phone Number LABORATORY [address] [address] * (ABNORMAL) BLOOD GAS, ARTERIAL (10/01/2023 5:11 AM EDT) Temperature 37.0 C 10/01/2023 5:19 AM EDT LABORATORY [facility] pH, Arterial 7.343(L) 7.350 - 7.450 units 10/01/2023 5:19 AM EDT LABORATORY [facility] pCO2, Arterial 32.2(L) 35.0 - 45.0 mmHg 10/01/2023 5:19 AM EDT LABORATORY [facility] pO2, Arterial 80.2 75.0 - 100.0 mmHg 10/01/2023 5:19 AM EDT LABORATORY [facility] Base Excess, Arterial -7.5(L) -2.0 - 2.0 mmol/L 10/01/2023 5:19 AM EDT LAB[facility]ATORY [facility] HGB 7.1(L) 12.0 - 15.3 g/dL 10/01/2023 5:19 AM EDT LAB[facility]ATORY [facility] Oxyhemoglobin, Arterial 90.0(L) 94.0 - 99.0 % total Hgb 10/01/2023 5:19 AM EDT LAB[facility]ATORY [facility] Carboxyhemoglob in, Whole Blood 0.7 <=1.5 % total Hgb 10/01/2023 5:19 AM EDT LAB[facility]ATORY [facility] Comment:Smokers: 0-9.0 % Methemoglobin, Whole Blood 2.7(H) <=1.5 % total Hgb 10/01/2023 5:19 AM EDT LAB[facility]ATORY [facility] Reduced Hemoglobin, Arterial 6.6(H) 0.0 - 5.0 % total Hgb 10/01/2023 5:19 AM EDT LAB[facility]ATORY [facility] O2 Content, Arterial 9.2(L) 15.0 - 24.0 %vol 10/01/2023 5:19 AM EDT LABORATORY [facility] FiO2 Not Provided % 10/01/2023 5:19 AM EDT LAB[facility]ATORY [facility] O2 Flow, Arterial 4 L/min 10/01/2023 5:19 AM EDT LAB[facility]ATORY [facility] Bicarbonate, Whole Blood 17.0(L) 23.0 - 31.0 mmol/L 10/01/2023 5:19 AM EDT LAB[facility]ATORY [facility] Blood Arterial blood specimen / Unknown Arterial Puncture / Unknown 10/01/2023 5:11 AM EDT 10/01/2023 5:15 AM EDT Darian SALMERON LAB BLOOD ORDER REYNALDO LABORATORY [address] [address] * XR CHEST 1 VIEW (10/01/2023 5:03 AM EDT) Anatomical Region Laterality Modality Chest Digital Radiogra phy 10/01/2023 4:45 AM EDT Impressions 10/01/2023 6:44 AM EDT IMPRESSION: 1. Stable moderate bilateral patchy ground-glass and interstitial opacities in the mid to upper lungs. This may represent multifocal pneumonia in the appropriate clinical setting. 2. Trace left pleural effusion. THIS DOCUMENT HAS BEEN ELECTRONICALLY SIGNED BY VERNA GIBSON MD Narrative 10/01/2023 6:44 AM EDT PROCEDURE INFORMATION: Exam: XR Chest Exam date and time: 10/01/2023 4:45 AM Age: 58 years old Clinical indication: Other: Hypoxia; Additional info: Hypoxia. Please have patient sitting upright for study and not lying flat. TECHNIQUE: Imaging protocol: Radiologic exam of the chest. Views: 1 view. COMPARISON: DX XR CHEST 1 VIEW 10/01/2023 12:02 AM FINDINGS: Tubes, catheters and devices: A catheter which may represent an abandoned catheter from a prior left anterior chest wall port is again seen, with tip projecting over the superior vena cava. Lungs: Stable moderate bilateral patchy ground-glass and interstitial opacities in the mid to upper lungs. Pleural spaces: No pneumothorax. Trace left pleural effusion. Heart/Mediastinum: Mild cardiomegaly. Bones/joints: Moderate rotatory scoliosis. No acute or suspicious osseous abnormalities. Gastrointestinal tract: Partially imaged prominent air-filled bowel loops. Other findings: Cholecystectomy clips. A dumbbell-shaped device which may represent a cystogastrostomy device projects over the epigastric region. Procedure Note Verna Gibson MD - 10/01/2023 PROCEDURE INFORMATION: Exam: XR Chest Exam date and time: 10/01/2023 4:45 AM Age: 58 years old Clinical indication: Other: Hypoxia; Additional info: Hypoxia. Please have patient sitting upright for study and not lying flat. TECHNIQUE: Imaging protocol: Radiologic exam of the chest. Views: 1 view. COMPARISON: DX XR CHEST 1 VIEW 10/01/2023 12:02 AM FINDINGS: Tubes, catheters and devices: A catheter which may represent an abandoned catheter from a prior left anterior chest wall port is again seen, withtip projecting over the superior vena cava. Lungs: Stable moderate bilateral patchy ground-glass and interstitialopacities in the mid to upper lungs. Pleural spaces: No pneumothorax. Trace left pleural effusion. Heart/Mediastinum: Mild cardiomegaly. Bones/joints: Moderate rotatory scoliosis. No acute or suspicious osseous abnormalities. Gastrointestinal tract: Partially imaged prominent air-filled bowel loops. Other findings: Cholecystectomy clips. A dumbbell-shaped device which may represent a cystogastrostomy device projects over the epigastric region. IMPRESSION IMPRESSION: 1. Stable moderate bilateral patchy ground-glass and interstitialopacities in the mid to upper lungs. This may represent multifocal pneumonia in the appropriate clinical setting. 2. Trace left pleural effusion. THIS DOCUMENT HAS BEEN ELECTRONICALLY SIGNED BY VERNA GIBSON MD Adiel Toussaint MD RADIOLOGY (RAD GEN ERAL) * CULTURE, BLOOD (10/01/2023 4:50 AM EDT) Pathologist [facility] Blood Culture Growth No growth 10/06/2023 5:01 AM EDT LABORATORY [facility] Blood Venous blood specimen / Unknown Venipuncture / Unknown 10/01/2023 4:50 AM EDT 10/01/2023 4:53 AM EDT Narrative LABORATORY [facility] - 10/06/2023 5:01 AM EDT No anaerobic bottle received. Adiel Toussaint MD LAB MICRO - GENERA L ORDERABLES Performing Organization Address [facility] Co de Phone Number LABORATORY [address] [address] * EXTRA LIGHT BLUE TOP (10/01/2023 4:48 AM EDT) Blood Venous blood specimen / Unknown 10/01/2023 4:48 AM EDT 10/01/2023 4:55 AM EDT Aris Bacon DO LAB BLOOD ORDERABLES Performing Organization Address [facility] Co de Phone Number LABORATORY [address] [address] * (ABNORMAL) BNP, NT-PRO (10/01/2023 4:39 AM EDT) Pathologist [facility] BNP, NT-Pro 6,053(H) <300 pg/mL 10/01/2023 2:56 PM EDT LABORATORY [facility] Blood Venous blood specimen / Unknown Venipuncture / Unknown 10/01/2023 4:39 AM EDT 10/01/2023 4:53 AM EDT Narrative LABORATORY [facility] - 10/01/2023 2:56 PM EDT Exclude Heart Failure: <300 pg/mL Diagnose Heart Failure: Age <50 yr: >450 pg/mL 50-75 yr: >900 pg/mL >75 yr: >1800 pg/mL GFR is 30-59 mL/min: >1200 pg/mL or Age-adjusted values GFR <30 mL/min: do not use, not reliable Prognostic threshold: 1000 pg/mL Jess Carranza MD LAB BLOOD ORDERABL ES Performing Organization Address [facility] de Phone Number LABORATORY [address] [address] * (ABNORMAL) PROCALCITONIN (10/01/2023 4:39 AM EDT) Procalcitonin 0.40(H) <0.10 ng/mL 10/01/2023 8:23 AM EDT LABORATORY [facility] Blood Venous blood specimen / Unknown Venipuncture / Unknown 10/01/2023 4:39 AM EDT 10/01/2023 4:53 AM EDT Narrative LABORATORY [facility] - 10/01/2023 8:23 AM EDT Less than 0.5 ng/mL: Low risk for progression to sepsis. Review patients condition for localized infections. 0.5 to 2.0 ng/mL: Intermediate risk for progresion to sepsis. Review underlying conditions. Recommend repeat PCT after 6 hours has elapsed. Greater than 2.0 ng/mL: high risk for progression to sepsis unless other causes are known. Jess Carranza MD LAB BLOOD ORDERABL ES Performing Organization Address [facility] de Phone Number LABORATORY [address] [address] * (ABNORMAL) CBC (10/01/2023 4:39 AM EDT) WBC 17.65(H) 4.00 - 10.80 K/uL 10/01/2023 4:58 AM EDT LABORATORY GL RBC 2.33 3.85 - 5.15 M/uL 10/01/2023 4:58 AM EDT LABORATORY GL HGB 7.6(L) 12.0 - 15.3 g/dL 10/01/2023 4:58 AM EDT LABORATORY GL HCT 23.5(L) 36.0 - 45.2 % 10/01/2023 4:58 AM EDT LABORATORY GL MCV 100.9 81.5 - 97.5 fL 10/01/2023 4:58 AM EDT LABORATORY GL MCH 32.6 27.0 - 34.0 pg 10/01/2023 4:58 AM EDT LABORATORY [facility] MCHC 32.3 32.0 - 36.0 g/dL 10/01/2023 4:58 AM EDT LABORATORY [facility] RDW 14.0 11.5 - 15.5 % 10/01/2023 4:58 AM EDT LABORATORY [facility] PLT 297 140 - 400 K/uL 10/01/2023 4:58 AM EDT LABORATORY [facility] MPV 11.8 6.6 - 11.1 fL 10/01/2023 4:58 AM EDT LABORATORY [facility] nRBCs 0 <=0 /100 WBCs 10/01/2023 4:58 AM EDT LABORATORY [facility] Blood Venous blood specimen / Unknown Venipuncture / Unknown 10/01/2023 4:39 AM EDT 10/01/2023 4:53 AM EDT Adiel Toussaint MD LAB BLOOD ORDERABL ES LABORATORY [facility] [address] [place] [address] * (ABNORMAL) BASIC METABOLIC PANEL (10/01/2023 4:39 AM EDT) BUN 92(H) 6 - 20 mg/dL 10/01/2023 5:11 AM EDT LABORATORY GL Creatinine 1.8(H) 0.5 - 1.0 mg/dL 10/01/2023 5:11 AM EDT LABORATORY [facility] Estimated Glomerular Filtration Rate 31(L) >=60 mL/min 10/01/2023 5:11 AM EDT LABORATORY [facility] Comment:eGFR is calculated b ased on the CKD-EPI 2020 equation Sodium 136 135 - 146 mmol/L 10/01/2023 5:11 AM EDT LABORATORY [facility] Potassium 3.7 3.5 - 5.1 mmol/L 10/01/2023 5:11 AM EDT LAB[facility]ATORY [facility] Chloride 105 98 - 107 mmol/L 10/01/2023 5:11 AM EDT LAB[facility]ATORY [facility] CO2 15(L) 22 - 32 mmol/L 10/01/2023 5:11 AM EDT LAB[facility]ATORY [facility] Anion Gap 16(H) 7 - 15 mmol/L 10/01/2023 5:11 AM EDT LAB[facility]ATORY [facility] Glucose 171(H) 70 - 120 mg/dL 10/01/2023 5:11 AM EDT LABORATORY [facility] Calcium 8.3(L) 8.4 - 10.2 mg/dL 10/01/2023 5:11 AM EDT LAB[facility]ATORY [facility] Blood Venous blood specimen / Unknown Venipuncture / Unknown 10/01/2023 4:39 AM EDT 10/01/2023 4:53 AM EDT Adiel Toussaint MD LAB BLOOD ORDERABL ES Performing Organization Address City/[facility]/ZIP Co de Phone Number LABORATORY [address] [address] * CULTURE, BLOOD (10/01/2023 4:39 AM EDT) Blood Culture Growth No growth 10/06/2023 5:01 AM EDT LABORATORY [facility] Blood Venous blood specimen / Unknown Venipuncture / Unknown 10/01/2023 4:39 AM EDT 10/01/2023 4:54 AM EDT Adiel Toussaint MD LAB MICRO - GENERA L ORDERABLES Performing Organization Address City/[facility]/ZIP Co de Phone Number LABORATORY [address] [address] * MAGNESIUM (10/01/2023 4:39 AM EDT) Magnesium 2.4 1.5 - 2.6 mg/dL 10/01/2023 5:11 AM EDT LABORATORY [facility] Blood Venous blood specimen / Unknown Venipuncture / Unknown 10/01/2023 4:39 AM EDT 10/01/2023 4:53 AM EDT Min Min Suzie SNIDER LAB BLOOD ORDERABLES Performing Organization Address City/[facility] Co de Phone Number LABORATORY [address] [phone] * PHOSPHORUS (10/01/2023 4:39 AM EDT) Pathologist [facility] Phosphorus 3.6 2.5 - 4.8 mg/dL 10/01/2023 5:11 AM EDT LABORATORY [facility] Blood Venous blood specimen / Unknown Venipuncture / Unknown 10/01/2023 4:39 AM EDT 10/01/2023 4:53 AM EDT Min Min Suzie SNIDER LAB BLOOD ORDERABLES Performing Organization Address [facility] de Phone Number LABORATORY [address] [address] * RESPIRATORY PATHOGEN PANEL, PCR (10/01/2023 3:53 AM EDT) Pathologist [facility] Adenovirus by PCR Negative Negative 4:57 AM EDT LABORATORY [facility] Coronavirus 229E by PCR Negative Negative 10/01/2023 4:57 AM EDT LABORATORY [facility] Coronavirus HKU1 by PCR Negative Negative 10/01/2023 4:57 AM EDT LABORATORY [facility] Coronavirus NL63 by PCR Negative Negative 10/01/2023 4:57 AM EDT LABORATORY [facility] Coronavirus OC43 by PCR Negative Negative 10/01/2023 4:57 AM EDT LABORATORY [facility] Coronavirus SARS-CoV-2 by PCR Negative Negative 10/01/2023 4:57 AM EDT LABORATORY [facility] Human Metapneumovirus by PCR Negative Negative 10/01/2023 4:57 AM EDT LABORATORY [facility] Rhinovirus/Enterovi jered by PCR Negative Negative 10/01/2023 4:57 AM EDT LABORATORY [facility] Influenza A Virus by PCR Negative Negative 10/01/2023 4:57 AM EDT LABORATORY [facility] Influenza B Virus by PCR Negative Negative 10/01/2023 4:57 AM EDT LABORATORY [facility] Parainfluenza Virus 1 by PCR Negative Negative 10/01/2023 4:57 AM EDT LABORATORY [facility] Parainfluenza Virus 2 by PCR Negative Negative 10/01/2023 4:57 AM EDT LABORATORY [facility] Parainfluenza Virus 3 by PCR Negative Negative 10/01/2023 4:57 AM EDT LABORATORY [facility] Parainfluenza Virus 4 by PCR Negative Negative 10/01/2023 4:57 AM EDT LABORATORY [facility] Respiratory Syncytial Virus by PCR Negative Negative 10/01/2023 4:57 AM EDT LABORATORY [facility] Bordetella pertussis by PCR Negative Negative 10/01/2023 4:57 AM EDT LABORATORY [facility] Chlamydia pneumoniae by PCR Negative Negative 10/01/2023 4:57 AM EDT LABORATORY [facility] Mycoplasma pneumoniae by PCR Negative Negative 10/01/2023 4:57 AM EDT LABORATORY [facility] Bordetella parapertussis by PCR Negative Negative 10/01/2023 4:57 AM EDT LABORATORY [facility] Comment: The primers that detect Rhinovirus may cross react with some Enterorviruses. The validation of bronchial specimens, tracheal aspirates, and throats for this assay was developed and performance characteristics determined by [employer]. The validation of alternate specimen types has not been cleared or approved by the U.S. Food and Drug Administration (FDA). It has been determined that such clearance or approval is not necessary. Upper Respiratory Mid-turbinate nasal swab / Unknown Non-blood Collection / Unknown 10/01/2023 3:53 AM EDT 10/01/2023 4:02 AM EDT Benny Agee MD LAB MICRO - GENERAL ORDERABLES LABORATORY [address] [address] * (ABNORMAL) GLUCOSE METER, POINT OF CARE (10/01/2023 12:32 AM EDT) Glucose Meter 146(H) 70 - 120 mg/dL 10/01/2023 12:37 AM EDT [facility] Blood Whole blood specimen / Unknown 10/01/2023 12:32 AM EDT 10/01/2023 12:37 AM EDT Aris Bacon DO LAB POINT OF CARE TE ST DOCKED DEVICE UNSOLICITED RESULTS Performing Organization Address City/[facility] Co de Phone Number [facility] [address] [place] [address] * EKG (10/01/2023 12:18 AM EDT) 10/01/2023 12:1 8 AM EDT Narrative Procedure Note Anais Ramachandran MD - 10/01/2023 12:18 AM EDT REASON FOR STUDY: Chest pain CONCLUSIONS: Sinus tachycardia Low voltage QRS, consider pulmonary disease, pericardial effusion, ornormal variant Septal infarct , age undetermined Abnormal ECG When compared with ECG of 28-Sep-2023 07:22, No significant change was found Ventricular Rate: 122 Atrial Rate: 122 [place] Interval: 138 QRS Duration: 78 QT/QTc: 316/450 ms P-R-T [place]: 32 : -21 : 57 degrees Benny Agee MD EKG Performing Organization Address [facility] Co de Phone Number [facility] CARDI[facility] * XR CHEST 1 VIEW (10/01/2023 12:17 AM EDT) Anatomical Region Laterality Modality Chest Digital Radiogra phy 10/01/2023 12:0 2 AM EDT Impressions 10/01/2023 1:15 AM EDT IMPRESSION: There is multifocal parenchymal consolidation which is significantly increased from the comparison study and could reflect multifocal pneumonia, ARDS, or edema. THIS DOCUMENT HAS BEEN ELECTRONICALLY SIGNED BY EFRAIN GILMAN MD Narrative 10/01/2023 1:15 AM EDT PROCEDURE INFORMATION: Exam: XR Chest Exam date and time: 10/01/2023 12:02 AM Age: 58 years old Clinical indication: Other: Lower back pain that shoots up her back, o2 levels dropped; Additional info: Spo2 drop and new back pain TECHNIQUE: Imaging protocol: Radiologic exam of the chest. Views: 1 view. COMPARISON: DX XR CHEST 1 VIEW 09/20/2023 2:28 PM FINDINGS: Tubes, catheters and devices: There appears to be an abandoned left port catheter with tip extending to the cavoatrial junction. Lungs: There is multifocal parenchymal consolidation which is significantly increased from the comparison study and could reflect multifocal pneumonia, ARDS, or edema. Pleural spaces: No large effusion or pneumothorax. Heart/Mediastinum: No evidence of mediastinal widening or cardiac silhouette enlargement; the mediastinum and heart appear within normal limits for contour and size. Bones/joints: No evidence of acute osseous abnormalities within the visualized portions of the thoracic spine and ribs. Osseous structures appear appropriate for patient age. Gastrointestinal tract: There is mild gaseous distention of partially visualized bowel loops. Procedure Note Efrain Gilman MD - 10/01/2023 PROCEDURE INFORMATION: Exam: XR Chest Exam date and time: 10/01/2023 12:02 AM Age: 58 years old Clinical indication: Other: Lower back pain that shoots up her back, [id number] dropped; Additional info: Spo2 drop and new back pain TECHNIQUE: Imaging protocol: Radiologic exam of the chest. Views: 1 view. COMPARISON: DX XR CHEST 1 VIEW 09/20/2023 2:28 PM FINDINGS: Tubes, catheters and devices: There appears to be an abandoned left port catheter with tip extending to the cavoatrial junction. Lungs: There is multifocal parenchymal consolidation which issignificantly increased from the comparison study and could reflect multifocalpneumonia, ARDS, or edema. Pleural spaces: No large effusion or pneumothorax. Heart/Mediastinum: No evidence of mediastinal widening or cardiacsilhouette enlargement; the mediastinum and heart appear within normal limits forcontour and size. Bones/joints: No evidence of acute osseous abnormalities within thevisualized portions of the thoracic spine and ribs. Osseous structures appearappropriate for patient age. Gastrointestinal tract: There is mild gaseous distention of partially visualized bowel loops. IMPRESSION IMPRESSION: There is multifocal parenchymal consolidation which is significantlyincreased from the comparison study and could reflect multifocal pneumonia, ARDS, or edema. THIS DOCUMENT HAS BEEN ELECTRONICALLY SIGNED BY EFRAIN GILMAN MD Benny Agee MD RADIOLOGY (RAD GENER AL) * (ABNORMAL) TROPONIN T, HIGH SENSITIVITY (10/01/2023 12:07 AM EDT) Troponin T, High Sensitivity 41(H) <=14 ng/L 10/01/2023 12:47 AM EDT LABORATORY [facility] Blood Venous blood specimen / Unknown Venipuncture / Unknown 10/01/2023 12:07 AM EDT 10/01/2023 12:23 AM EDT Benny Agee MD LAB BLOOD ORDERABLES Performing Organization Address City/[facility] Co de Phone Number LABORATORY [address] [address] * (ABNORMAL) GLUCOSE METER, POINT OF CARE (09/30/2023 6:41 PM EDT) Glucose Meter 185(H) 70 - 120 mg/dL 09/30/2023 6:43 PM EDT [facility] Blood Whole blood specimen / Unknown 09/30/2023 6:41 PM EDT 09/30/2023 6:43 PM EDT Aris Bacon DO LAB POINT OF CARE TE ST DOCKED DEVICE UNSOLICITED RESULTS Performing Organization Address [facility] de Phone Number [facility] [address] [place] [phone] * GLUCOSE METER, POINT OF CARE (09/30/2023 11:58 AM EDT) Glucose Meter 99 70 - 120 mg/dL 09/30/2023 12:05 PM EDT [facility] Blood Whole blood specimen / Unknown 09/30/2023 11:58 AM EDT 09/30/2023 12:05 PM EDT Aris Bacon DO LAB POINT OF CARE TE ST DOCKED DEVICE UNSOLICITED RESULTS Performing Organization Address City/[facility]/ZIP Co de Phone Number [facility] [address] [place] [address] * (ABNORMAL) GLUCOSE METER, POINT OF CARE (09/30/2023 5:58 AM EDT) Glucose Meter 126(H) 70 - 120 mg/dL 09/30/2023 6:05 AM EDT [facility] Blood Whole blood specimen / Unknown 09/30/2023 5:58 AM EDT 09/30/2023 6:05 AM EDT Aris Bacon DO LAB POINT OF CARE TE ST DOCKED DEVICE UNSOLICITED RESULTS Performing Organization Address City/[facility]/ZIP Co de Phone Number [facility] [address] [place] [address] * MAGNESIUM (09/30/2023 4:24 AM EDT) Magnesium 2.6 1.5 - 2.6 mg/dL 09/30/2023 5:56 AM EDT LABORATORY [facility] Blood Venous blood specimen / Unknown Venipuncture / Unknown 09/30/2023 4:24 AM EDT 09/30/2023 5:19 AM EDT Min Min Suzie SNIDER LAB BLOOD ORDERABLES Performing Organization Address City/[facility]/ZIP Co de Phone Number LABORATORY [address] [address] * PHOSPHORUS (09/30/2023 4:24 AM EDT) Phosphorus 4.3 2.5 - 4.8 mg/dL 09/30/2023 5:56 AM EDT LABORATORY [facility] Blood Venous blood specimen / Unknown Venipuncture / Unknown 09/30/2023 4:24 AM EDT 09/30/2023 5:19 AM EDT Min Min Suzie SNIDER LAB BLOOD ORDERABLES Performing Organization Address City/[facility]/ZIP Co de Phone Number LABORATORY [address] [address] * (ABNORMAL) BASIC METABOLIC PANEL (09/30/2023 4:24 AM EDT) BUN 102(H) 6 - 20 mg/dL 09/30/2023 5:56 AM EDT LAB[facility]ORY [facility] Creatinine 2.2(H) 0.5 - 1.0 mg/dL 09/30/2023 5:56 AM EDT LAB[facility] Estimated Glomerular Filtration Rate 25(L) >=60 mL/min 09/30/2023 5:56 AM EDT LAB[facility] Comment:eGFR is calculated b ased on the CKD-EPI 2020 equation Sodium 135 135 - 146 mmol/L 09/30/2023 5:56 AM EDT LAB[facility] Potassium 4.5 3.5 - 5.1 mmol/L 09/30/2023 5:56 AM EDT [facility] Chloride 106 98 - 107 mmol/L 09/30/2023 5:56 AM EDT [facility] CO2 13(L) 22 - 32 mmol/L 09/30/2023 5:56 AM EDT LAB[facility] Anion Gap 16(H) 7 - 15 mmol/L 09/30/2023 5:56 AM EDT [facility] Glucose 151(H) 70 - 120 mg/dL 09/30/2023 5:56 AM EDT [facility] Calcium 8.2(L) 8.4 - 10.2 mg/dL 09/30/2023 5:56 AM EDT [facility] Blood Venous blood specimen / Unknown Venipuncture / Unknown 09/30/2023 4:24 AM EDT 09/30/2023 5:19 AM EDT Alen Larsen MD LAB BLOOD ORDERABLES [facility] [address] [place] [address] * EXTRA LAVENDER TOP (09/30/2023 4:19 AM EDT) Blood Venous blood specimen / Unknown Venipuncture / Unknown 09/30/2023 4:19 AM EDT 09/30/2023 5:19 AM EDT Aris Bacon DO LAB BLOOD ORDERABLES Performing Organization Address [facility] de Phone Number LABORATORY GL [address], [place] [phone] * (ABNORMAL) GLUCOSE METER, POINT OF CARE (09/29/2023 11:53 PM EDT) Glucose Meter 134(H) 70 - 120 mg/dL 09/30/2023 12:02 AM EDT [facility] Blood Whole blood specimen / Unknown 09/29/2023 11:53 PM EDT 09/30/2023 12:01 AM EDT Aris Bacon LAB POINT OF CARE TE ST DOCKED DEVICE UNSOLICITED RESULTS Performing Organization Address [facility] Phone Number [facility] [address] [place] [phone] * GLUCOSE METER, POINT OF CARE (09/29/2023 5:29 PM EDT) Glucose Meter 110 70 - 120 mg/dL 09/29/2023 5:31 PM EDT [facility] Blood Whole blood specimen / Unknown 09/29/2023 5:29 PM EDT 09/29/2023 5:31 PM EDT [facility] LAB POINT OF CARE TE ST DOCKED DEVICE UNSOLICITED RESULTS Performing Organization Address [facility] Phone Number [facility] [address] [place] [phone] * US RENAL (09/29/2023 4:15 PM EDT) Anatomical Region Laterality Modality Abdomen, Body Ultrasound 09/29/2023 3:29 PM EDT Impressions 09/29/2023 5:36 PM EDT IMPRESSION: Left kidney demonstrates 4 mm calcification in the midportion with moderate hydronephrosis. THIS DOCUMENT HAS BEEN ELECTRONICALLY SIGNED BY RUI MARTINEZ MD Narrative 09/29/2023 5:36 PM EDT PROCEDURE INFORMATION: Exam: US Retroperitoneal; Complete; Kidneys and Bladder Exam date and time: 09/29/2023 3:29 PM Age: 58 years old Clinical indication: Abnormal findings; Abnormal lab test; Abnormal kidney function lab tests; Prior surgery; Surgery date: 6+ months; Surgery type: RT nephrectomy; Additional info: Robinson. HX nephrectomy TECHNIQUE: Imaging protocol: Real-time ultrasound of the retroperitoneum with image documentation. Complete exam focused on the kidneys and bladder. COMPARISON: US PELVIS TRANS-ABDOMINAL 09/27/2023 11:15 AM FINDINGS: Right kidney: Surgically absent. Left kidney: 10.9 x 4.1 x 4.9 cm. 4 mm calcification in the midportion with moderate hydronephrosis. Urinary bladder: Distended bladder with increased postvoid residue. Bladder diverticulum. Procedure Note Rui Martinez MD - 09/29/2023 PROCEDURE INFORMATION: Exam: US Retroperitoneal; Complete; Kidneys and Bladder Exam date and time: 09/29/2023 3:29 PM Age: 58 years old Clinical indication: Abnormal findings; Abnormal lab test; Abnormal kidney function lab tests; Prior surgery; Surgery date: 6+ months; Surgery type:RT nephrectomy; Additional info: Robinson. HX nephrectomy TECHNIQUE: Imaging protocol: Real-time ultrasound of the retroperitoneum with image documentation. Complete exam focused on the kidneys and bladder. COMPARISON: US PELVIS TRANS-ABDOMINAL 09/27/2023 11:15 AM FINDINGS: Right kidney: Surgically absent. Left kidney: 10.9 x 4.1 x 4.9 cm. 4 mm calcification in the midportionwith moderate hydronephrosis. Urinary bladder: Distended bladder with increased postvoid residue.Bladder diverticulum. IMPRESSION IMPRESSION: Left kidney demonstrates 4 mm calcification in the midportion withmoderate hydronephrosis. THIS DOCUMENT HAS BEEN ELECTRONICALLY SIGNED BY RUI MARTINEZ MD Aris Bacon DO RAD ULTRASOUND * (ABNORMAL) GLUCOSE METER, POINT OF CARE (09/29/2023 11:54 AM EDT) Glucose Meter 154(H) 70 - 120 mg/dL 09/29/2023 12:02 PM EDT [facility] Blood Whole blood specimen / Unknown 09/29/2023 11:54 AM EDT 09/29/2023 12:02 PM EDT Aris Reyes [facility] LAB POINT OF CARE TE ST DOCKED DEVICE UNSOLICITED RESULTS Performing Organization Address [facility] de Phone Number [facility] [address] [place] [phone] * GLUCOSE METER, POINT OF CARE (09/29/2023 5:56 AM EDT) Glucose Meter 95 70 - 120 mg/dL 09/29/2023 6:09 AM EDT [facility] Blood Whole blood specimen / Unknown 09/29/2023 5:56 AM EDT 09/29/2023 6:09 AM EDT Aris Reyes [facility] LAB POINT OF CARE TE ST DOCKED DEVICE UNSOLICITED RESULTS Performing Organization Address [facility] Phone Number [facility] [address] [place] [phone] * MAGNESIUM (09/29/2023 4:18 AM EDT) Magnesium 2.5 1.5 - 2.6 mg/dL 09/29/2023 5:14 AM EDT LABORATORY [facility] Blood Venous blood specimen / Unknown Venipuncture / Unknown 09/29/2023 4:18 AM EDT 09/29/2023 4:46 AM EDT Min Min Suzie SNIDER LAB BLOOD ORDERABLES Performing Organization Address [facility] de Phone Number LABORATORY [address] [phone] * PHOSPHORUS (09/29/2023 4:18 AM EDT) Phosphorus 3.9 2.5 - 4.8 mg/dL 09/29/2023 5:14 AM EDT LABORATORY [facility] Blood Venous blood specimen / Unknown Venipuncture / Unknown 09/29/2023 4:18 AM EDT 09/29/2023 4:46 AM EDT Min Min Suzie SNIDER LAB BLOOD ORDERABLES Performing Organization Address City/[facility]/ZIP Co de Phone Number LABORATORY [facility] [address] [place] [address] * (ABNORMAL) BASIC METABOLIC PANEL (09/29/2023 4:18 AM EDT) BUN 91(H) 6 - 20 mg/dL 09/29/2023 5:14 AM EDT [facility] Creatinine 1.9(H) 0.5 - 1.0 mg/dL 09/29/2023 5:14 AM EDT [facility] Estimated Glomerular Filtration Rate 29(L) >=60 mL/min 09/29/2023 5:14 AM EDT [facility] Comment:eGFR is calculated b ased on the CKD-EPI 2020 equation Sodium 136 135 - 146 mmol/L 09/29/2023 5:14 AM EDT LAB[facility] Potassium 4.8 3.5 - 5.1 mmol/L 09/29/2023 5:14 AM EDT [facility] Chloride 106 98 - 107 mmol/L 09/29/2023 5:14 AM EDT [facility] CO2 15(L) 22 - 32 mmol/L 09/29/2023 5:14 AM EDT [facility] Anion Gap 15 7 - 15 mmol/L 09/29/2023 5:14 AM EDT [facility] Glucose 139(H) 70 - 120 mg/dL 09/29/2023 5:14 AM EDT [facility] Calcium 8.1(L) 8.4 - 10.2 mg/dL 09/29/2023 5:14 AM EDT [facility] Blood Venous blood specimen / Unknown Venipuncture / Unknown 09/29/2023 4:18 AM EDT 09/29/2023 4:46 AM EDT Min Min Suzie SNIDER LAB BLOOD ORDERABLES Performing Organization Address City/[facility]/ZIP Co de Phone Number LABORATORY [facility] [address] [place] [address] * EXTRA LAVENDER TOP (09/29/2023 4:15 AM EDT) Blood Venous blood specimen / Unknown 09/29/2023 4:15 AM EDT 09/29/2023 4:47 AM EDT Aris Canalesjameeldyan LAB BLOOD ORDERABLES LABORATORY [address] [address] * (ABNORMAL) GLUCOSE METER, POINT OF CARE (09/29/2023 12:06 AM EDT) Glucose Meter 147(H) 70 - 120 mg/dL 09/29/2023 12:09 AM EDT [facility] Blood Whole blood specimen / Unknown 09/29/2023 12:06 AM EDT 09/29/2023 12:09 AM EDT Aris Bacon LAB POINT OF CARE TE ST DOCKED DEVICE UNSOLICITED RESULTS Performing Organization Address [facility] Co de Phone Number [facility] [address] [place] [phone] * (ABNORMAL) GLUCOSE METER, POINT OF CARE (09/28/2023 6:15 PM EDT) Glucose Meter 142(H) 70 - 120 mg/dL 09/28/2023 6:18 PM EDT [facility] Blood Whole blood specimen / Unknown 09/28/2023 6:15 PM EDT 09/28/2023 6:18 PM EDT [facility] LAB POINT OF CARE TE ST DOCKED DEVICE UNSOLICITED RESULTS Performing Organization Address City/[facility] Co de Phone Number [facility] [address] [place] [phone] * GLUCOSE METER, POINT OF CARE (09/28/2023 11:22 AM EDT) Glucose Meter 119 70 - 120 mg/dL 09/28/2023 11:25 AM EDT [facility] Blood Whole blood specimen / Unknown 09/28/2023 11:22 AM EDT 09/28/2023 11:25 AM EDT Aris Bacon DO LAB POINT OF CARE TE ST DOCKED DEVICE UNSOLICITED RESULTS Performing Organization Address [facility] Co de Phone Number [facility] [address] [place] [address] * EKG (09/28/2023 7:22 AM EDT) 09/28/2023 7:22 AM EDT Narrative Procedure Note Joya Luna, DO - 09/28/2023 7:22 AM EDT REASON FOR STUDY: Notify provider if obtaining EKG;Chest pain CONCLUSIONS: Sinus tachycardia Left axis deviation Pulmonary disease Septal infarct (cited on or before 28-Sep-2023) Abnormal ECG When compared with ECG of 28-Sep-2023 07:22, No significant change was found Ventricular Rate: 104 Atrial Rate: 104 [place] Interval: 124 QRS Duration: 78 QT/QTc: 330/433 ms P-R-T [place]: 15 : -41 : 53 degrees Carmela SALMERON EKG Performing Organization Address [facility] Co de Phone Number [facility] * GLUCOSE METER, POINT OF CARE (09/28/2023 6:23 AM EDT) [facility] Glucose Meter 112 70 - 120 mg/dL 09/28/2023 6:32 AM EDT [facility] Blood Whole blood specimen / Unknown 09/28/2023 6:23 AM EDT 09/28/2023 6:32 AM EDT Aris Bacon DO LAB POINT OF CARE TE ST DOCKED DEVICE UNSOLICITED RESULTS Performing Organization Address [facility] Co de Phone Number [facility] [address] [place] [address] * EXTRA LAVENDER TOP (09/28/2023 5:13 AM EDT) Blood Venous blood specimen / Unknown 09/28/2023 5:13 AM EDT 09/28/2023 5:16 AM EDT Aris Bacon DO LAB BLOOD ORDERABLES Performing Organization Address [facility] Co de Phone Number LABORATORY [address] [phone] * MAGNESIUM (09/28/2023 5:13 AM EDT) Magnesium 2.6 1.5 - 2.6 mg/dL 09/28/2023 5:57 AM EDT LABORATORY [facility] Blood Venous blood specimen / Unknown Venipuncture / Unknown 09/28/2023 5:13 AM EDT 09/28/2023 5:16 AM EDT Alen Larsen MD LAB BLOOD ORDERABLES Performing Organization Address [facility] Co de Phone Number LABORATORY [address] [address] * PHOSPHORUS (09/28/2023 5:13 AM EDT) Phosphorus 4.3 2.5 - 4.8 mg/dL 09/28/2023 5:57 AM EDT LABORATORY [facility] Blood Venous blood specimen / Unknown Venipuncture / Unknown 09/28/2023 5:13 AM EDT 09/28/2023 5:16 AM EDT Min Alen Larsen MD LAB BLOOD ORDERABLES Performing Organization Address City/[facility] de Phone Number LABORATORY [address] [address] * (ABNORMAL) BASIC METABOLIC PANEL (09/28/2023 5:13 AM EDT) BUN 83(H) 6 - 20 mg/dL 09/28/2023 5:57 AM EDT LABORATORY GL Creatinine 1.6(H) 0.5 - 1.0 mg/dL 09/28/2023 5:57 AM EDT LABORATORY GL Estimated Glomerular Filtration Rate 37(L) >=60 mL/min 09/28/2023 5:57 AM EDT LAB[facility]ORY [facility] Comment:eGFR is calculated b ased on the CKD-EPI 2020 equation Sodium 136 135 - 146 mmol/L 09/28/2023 5:57 AM EDT LAB[facility]ATORY [facility] Potassium 4.7 3.5 - 5.1 mmol/L 09/28/2023 5:57 AM EDT [facility] Chloride 107 98 - 107 mmol/L 09/28/2023 5:57 AM EDT LAB[facility] CO2 16(L) 22 - 32 mmol/L 09/28/2023 5:57 AM EDT [facility] Anion Gap 13 7 - 15 mmol/L 09/28/2023 5:57 AM EDT LAB[facility] Glucose 118 70 - 120 mg/dL 09/28/2023 5:57 AM EDT LAB[facility] Calcium 8.4 8.4 - 10.2 mg/dL 09/28/2023 5:57 AM EDT [facility] Blood Venous blood specimen / Unknown Venipuncture / Unknown 09/28/2023 5:13 AM EDT 09/28/2023 5:16 AM EDT Alen Larsen MD LAB BLOOD ORDERABLES LABORATORY [address] [address] * (ABNORMAL) GLUCOSE METER, POINT OF CARE (09/28/2023 12:20 AM EDT) Glucose Meter 152(H) 70 - 120 mg/dL 09/28/2023 12:25 AM EDT [facility] Blood Whole blood specimen / Unknown 09/28/2023 12:20 AM EDT 09/28/2023 12:25 AM EDT Aris Bacon DO LAB POINT OF CARE TE ST DOCKED DEVICE UNSOLICITED RESULTS Performing Organization Address [facility]/ZIP Co de Phone Number [facility] [address] [place] [phone] * GLUCOSE METER, POINT OF CARE (09/27/2023 6:26 PM EDT) Glucose Meter 116 70 - 120 mg/dL 09/27/2023 6:40 PM EDT [facility] Blood Whole blood specimen / Unknown 09/27/2023 6:26 PM EDT 09/27/2023 6:40 PM EDT Aris Bacon DO LAB POINT OF CARE TE ST DOCKED DEVICE UNSOLICITED RESULTS [facility] [address] [place] [address] * US PELVIS TRANS-ABDOMINAL (09/27/2023 12:08 PM EDT) Anatomical Region Laterality Modality Pelvis, Body Ultrasound 09/27/2023 11:1 5 AM EDT Impressions 09/27/2023 7:22 PM EDT IMPRESSION: 1. Unremarkable appearance of the uterus and endometrium. 2. Nonvisualization of the ovaries. No adnexal masses. THIS DOCUMENT HAS BEEN ELECTRONICALLY SIGNED BY DARIN VILLELA MD Narrative 09/27/2023 7:22 PM EDT PROCEDURE INFORMATION: Exam: US Nonobstetric Pelvis; Complete Exam date and time: 09/27/2023 11:15 AM Age: 58 years old Clinical indication: Abnormal findings; Abnormal imaging test; Additional info: Abnormal abd US TECHNIQUE: Imaging protocol: Transabdominal pelvic nonobstetric ultrasound. Complete exam. Real time ultrasound with image documentation. COMPARISON: US PELVIS TRANS-VAGINAL NON-OB 09/09/2020 8:48 AM FINDINGS: Uterus: Uterus is anteverted and measures 4.9 x 1.7 x 3.5 cm. Endometrial stripe is normal in thickness measuring 3.7 mm. Right ovary/adnexa: Not visualized. Left ovary/adnexa: Not visualized. Intraperitoneal space: No intraperitoneal fluid. Urinary bladder: Normal. Procedure Note Darin Villela MD - 09/27/2023 PROCEDURE INFORMATION: Exam: US Nonobstetric Pelvis; Complete Exam date and time: 09/27/2023 11:15 AM Age: 58 years old Clinical indication: Abnormal findings; Abnormal imaging test; Additionalinfo: Abnormal abd US TECHNIQUE: Imaging protocol: Transabdominal pelvic nonobstetric ultrasound. Completeexam. Real time ultrasound with image documentation. COMPARISON: US PELVIS TRANS-VAGINAL NON-OB 09/09/2020 8:48 AM FINDINGS: Uterus: Uterus is anteverted and measures 4.9 x 1.7 x 3.5 cm. Endometrial stripe is normal in thickness measuring 3.7 mm. Right ovary/adnexa: Not visualized. Left ovary/adnexa: Not visualized. Intraperitoneal space: No intraperitoneal fluid. Urinary bladder: Normal. IMPRESSION IMPRESSION: 1. Unremarkable appearance of the uterus and endometrium. 2. Nonvisualization of the ovaries. No adnexal masses. THIS DOCUMENT HAS BEEN ELECTRONICALLY SIGNED BY DARIN VILLELA MD Aris Bacon DO RAD ULTRASOUND * GLUCOSE METER, POINT OF CARE (09/27/2023 11:49 AM EDT) Glucose Meter 115 70 - 120 mg/dL 09/27/2023 12:12 PM EDT [facility] Blood Whole blood specimen / Unknown 09/27/2023 11:49 AM EDT 09/27/2023 12:12 PM EDT Aris Bacon DO LAB POINT OF CARE TE ST DOCKED DEVICE UNSOLICITED RESULTS Performing Organization Address City/[facility] Co de Phone Number [facility] [address] [place] [phone] * EXTRA LAVENDER TOP (09/27/2023 6:08 AM EDT) Blood Venous blood specimen / Unknown 09/27/2023 6:08 AM EDT 09/27/2023 6:44 AM EDT Aris Reyes Handangodayanara VALDEZ LAB BLOOD ORDERABLES LABORATORY [address] [address] * MAGNESIUM (09/27/2023 6:08 AM EDT) Magnesium 2.5 1.5 - 2.6 mg/dL 09/27/2023 7:36 AM EDT LABORATORY [facility] Blood Venous blood specimen / Unknown Venipuncture / Unknown 09/27/2023 6:08 AM EDT 09/27/2023 6:42 AM EDT Min Min Suzie SNIDER LAB BLOOD ORDERABLES Performing Organization Address City/[facility]/ZIP Co de Phone Number LABORATORY [address] [address] * PHOSPHORUS (09/27/2023 6:08 AM EDT) Phosphorus 4.3 2.5 - 4.8 mg/dL 09/27/2023 7:36 AM EDT LABORATORY GL Blood Venous blood specimen / Unknown Venipuncture / Unknown 09/27/2023 6:08 AM EDT 09/27/2023 6:42 AM EDT Min Min Suzie SNIDER LAB BLOOD ORDERABLES Performing Organization Address [facility] de Phone Number LABORATORY [address] [address] * (ABNORMAL) BASIC METABOLIC PANEL (09/27/2023 6:08 AM EDT) BUN 83(H) 6 - 20 mg/dL 09/27/2023 7:38 AM EDT LAB[facility]ATORY [facility] Creatinine 1.6(H) 0.5 - 1.0 mg/dL 09/27/2023 7:38 AM EDT LAB[facility]ATORY [facility] Estimated Glomerular Filtration Rate 38(L) >=60 mL/min 09/27/2023 7:38 AM EDT LAB[facility]ORY [facility] Comment:eGFR is calculated b ased on the CKD-EPI 2020 equation Sodium 134(L) 135 - 146 mmol/L 09/27/2023 7:38 AM EDT LAB[facility]ATORY [facility] Potassium 4.5 3.5 - 5.1 mmol/L 09/27/2023 7:38 AM EDT LAB[facility]ORY [facility] Chloride 106 98 - 107 mmol/L 09/27/2023 7:38 AM EDT LAB[facility]ORY [facility] CO2 15(L) 22 - 32 mmol/L 09/27/2023 7:38 AM EDT LAB[facility]ATORY [facility] Anion Gap 13 7 - 15 mmol/L 09/27/2023 7:38 AM EDT LAB[facility]ATORY [facility] Glucose 118 70 - 120 mg/dL 09/27/2023 7:38 AM EDT LABORATORY [facility] Calcium 8.5 8.4 - 10.2 mg/dL 09/27/2023 7:38 AM EDT LABORATORY [facility] Blood Venous blood specimen / Unknown Venipuncture / Unknown 09/27/2023 6:08 AM EDT 09/27/2023 6:42 AM EDT Min Alen Larsen MD LAB BLOOD ORDERABLES Performing Organization Address [facility] Co de Phone Number LABORATORY [address] [address] * CALCIUM, IONIZED (09/27/2023 6:08 AM EDT) Calcium, Ionized 1.27 1.13 - 1.32 mmol/L 09/27/2023 7:23 AM EDT LABORATORY [facility] Comment:This test was develo ped and its performance characteristics dtermined by [employer]. It has not been cleared or approved by the [place] Food and Drug Administration Blood Venous blood specimen / Unknown Venipuncture / Unknown 09/27/2023 6:08 AM EDT 09/27/2023 6:42 AM EDT Vic Wilkerson DO LAB BLOOD ORDERAB LES Performing Organization Address [facility] de Phone Number LABORATORY [address] [address] * TRIGLYCERIDES (09/27/2023 6:08 AM EDT) Triglycerides 101 <=174 mg/dL 09/27/2023 1:46 PM EDT LABORATORY [facility] Comment: Triglyceride Reference Ranges (mg/dL): <150 Acceptable 150-174 Borderline high 175-499 High >=500 Very high Blood Venous blood specimen / Unknown Venipuncture / Unknown 09/27/2023 6:08 AM EDT 09/27/2023 6:42 AM EDT Alen Larsen MD LAB BLOOD ORDERABLES LABORATORY [facility] [address] [place] [address] * (ABNORMAL) HEPATIC FUNCTION PANEL (09/27/2023 6:08 AM EDT) Albumin 3.0(L) 3.8 - 5.0 g/dL 09/27/2023 7:36 AM EDT LABORATORY [facility] AST 22 10 - 35 U/L 09/27/2023 7:36 AM EDT LAB[facility]ATORY [facility] Alkaline Phosphatase 112 35 - 130 U/L 09/27/2023 7:36 AM EDT LAB[facility]ATORY [facility] ALT 30 10 - 35 U/L 09/27/2023 7:36 AM EDT LAB[facility]ATORY [facility] Bilirubin, Total <0.2 <=1.2 mg/dL 09/27/2023 7:36 AM EDT LAB[facility]ATORY [facility] Bilirubin, Direct <0.2 0.0 - 0.3 mg/dL 09/27/2023 7:36 AM EDT LAB[facility]ATORY [facility] Protein 5.8(L) 6.0 - 8.3 g/dL 09/27/2023 7:36 AM EDT LAB[facility]ATORY [facility] Blood Venous blood specimen / Unknown Venipuncture / Unknown 09/27/2023 6:08 AM EDT 09/27/2023 6:42 AM EDT Min Min Suzie SNIDER LAB BLOOD ORDERABLES Performing Organization Address City/[facility]/ZIP Co de Phone Number LABORATORY [address] [address] * (ABNORMAL) GLUCOSE METER, POINT OF CARE (09/27/2023 6:05 AM EDT) Glucose Meter 122(H) 70 - 120 mg/dL 09/27/2023 6:17 AM EDT [facility] Blood Whole blood specimen / Unknown 09/27/2023 6:05 AM EDT 09/27/2023 6:17 AM EDT Aris Bacon DO LAB POINT OF CARE TE ST DOCKED DEVICE UNSOLICITED RESULTS Performing Organization Address City/State/[facility] Co de Phone Number [facility] [address] [place] [address] * (ABNORMAL) GLUCOSE METER, POINT OF CARE (09/27/2023 12:48 AM EDT) Glucose Meter 223(H) 70 - 120 mg/dL 09/27/2023 12:58 AM EDT [facility] Blood Whole blood specimen / Unknown 09/27/2023 12:48 AM EDT 09/27/2023 12:58 AM EDT Aris Bacon DO LAB POINT OF CARE TE ST DOCKED DEVICE UNSOLICITED RESULTS Performing Organization Address [facility] de Phone Number [facility] [address] [place] [address] * GLUCOSE METER, POINT OF CARE (09/26/2023 5:09 PM EDT) Glucose Meter 81 70 - 120 mg/dL 09/26/2023 5:16 PM EDT [facility] Blood Whole blood specimen / Unknown 09/26/2023 5:09 PM EDT 09/26/2023 5:16 PM EDT Wilner Gross MD LAB POINT OF CARE TEST DOCKED DEVICE UNSOLICITED RESULTS Performing Organization Address [facility] de Phone Number [facility] [address] [place] [address] * GLUCOSE METER, POINT OF CARE (09/26/2023 11:43 AM EDT) Glucose Meter 87 70 - 120 mg/dL 09/26/2023 11:46 AM EDT [facility] Blood Whole blood specimen / Unknown 09/26/2023 11:43 AM EDT 09/26/2023 11:46 AM EDT Wilner Gross MD LAB POINT OF CARE TEST DOCKED DEVICE UNSOLICITED RESULTS Performing Organization Address [facility] Co de Phone Number [facility] [address] [place] [address] * GLUCOSE METER, POINT OF CARE (09/26/2023 6:53 AM EDT) Glucose Meter 97 70 - 120 mg/dL 09/26/2023 6:56 AM EDT [facility] Blood Whole blood specimen / Unknown 09/26/2023 6:53 AM EDT 09/26/2023 6:56 AM EDT Wilner Gross MD LAB POINT OF CARE TEST DOCKED DEVICE UNSOLICITED RESULTS Performing Organization Address [facility] Co de Phone Number [facility] [address] [place] [phone] * EXTRA LAVENDER TOP (09/26/2023 6:44 AM EDT) Blood Venous blood specimen / Unknown 09/26/2023 6:44 AM EDT 09/26/2023 6:58 AM EDT Wilner Gross MD LAB BLOOD ORD ERABLES Performing Organization Address [facility] Co de Phone Number LABORATORY [address] [address] * MAGNESIUM (09/26/2023 6:44 AM EDT) Magnesium 2.5 1.5 - 2.6 mg/dL 09/26/2023 7:26 AM EDT LABORATORY [facility] Blood Venous blood specimen / Unknown Venipuncture / Unknown 09/26/2023 6:44 AM EDT 09/26/2023 6:57 AM EDT Alen Larsen MD LAB BLOOD ORDERABLES Performing Organization Address [facility] Co de Phone Number LABORATORY [address] [address] * (ABNORMAL) PHOSPHORUS (09/26/2023 6:44 AM EDT) Phosphorus 5.4(H) 2.5 - 4.8 mg/dL 09/26/2023 7:26 AM EDT LABORATORY [facility] Blood Venous blood specimen / Unknown Venipuncture / Unknown 09/26/2023 6:44 AM EDT 09/26/2023 6:57 AM EDT Min Min Suzie SNIDER LAB BLOOD ORDERABLES Performing Organization Address City/[facility] Co de Phone Number LABORATORY [address] [phone] * (ABNORMAL) BASIC METABOLIC PANEL (09/26/2023 6:44 AM EDT) BUN 82(H) 6 - 20 mg/dL 09/26/2023 7:26 AM EDT LABORATORY [facility] Creatinine 1.5(H) 0.5 - 1.0 mg/dL 09/26/2023 7:26 AM EDT LABORATORY [facility] Estimated Glomerular Filtration Rate 39(L) >=60 mL/min 09/26/2023 7:26 AM EDT LAB[facility] Comment:eGFR is calculated b ased on the CKD-EPI 2020 equation Sodium 137 135 - 146 mmol/L 09/26/2023 7:26 AM EDT LAB[facility]ATORY [facility] Potassium 4.5 3.5 - 5.1 mmol/L 09/26/2023 7:26 AM EDT [facility] Chloride 107 98 - 107 mmol/L 09/26/2023 7:26 AM EDT [facility] CO2 15(L) 22 - 32 mmol/L 09/26/2023 7:26 AM EDT [facility] Anion Gap 15 7 - 15 mmol/L 09/26/2023 7:26 AM EDT [facility] Glucose 96 70 - 120 mg/dL 09/26/2023 7:26 AM EDT [facility] Calcium 8.3(L) 8.4 - 10.2 mg/dL 09/26/2023 7:26 AM EDT [facility] Blood Venous blood specimen / Unknown Venipuncture / Unknown 09/26/2023 6:44 AM EDT 09/26/2023 6:57 AM EDT Min Min Suzie [facility] LAB BLOOD ORDERABLES Performing Organization Address City/State/[facility] Co de Phone Number LABORATORY [address] [id number] * GLUCOSE METER, POINT OF CARE (09/26/2023 12:11 AM EDT) Glucose Meter 114 70 - 120 mg/dL 09/26/2023 12:14 AM EDT [facility] Blood Whole blood specimen / Unknown 09/26/2023 12:11 AM EDT 09/26/2023 12:14 AM EDT Wilner Gross MD LAB POINT OF CARE TEST DOCKED DEVICE UNSOLICITED RESULTS Performing Organization Address [facility] de Phone Number [facility] [address] [place] [phone] * (ABNORMAL) GLUCOSE METER, POINT OF CARE (09/25/2023 6:27 PM EDT) Glucose Meter 156(H) 70 - 120 mg/dL 09/25/2023 6:32 PM EDT [facility] Blood Whole blood specimen / Unknown 09/25/2023 6:27 PM EDT 09/25/2023 6:32 PM EDT Wilner Gross MD LAB POINT OF CARE TEST DOCKED DEVICE UNSOLICITED RESULTS Performing Organization Address [facility] de Phone Number [facility] [address] [place] [phone] * GLUCOSE METER, POINT OF CARE (09/25/2023 12:09 PM EDT) Glucose Meter 96 70 - 120 mg/dL 09/25/2023 12:15 PM EDT [facility] Blood Whole blood specimen / Unknown 09/25/2023 12:09 PM EDT 09/25/2023 12:15 PM EDT Wilner Gross MD LAB POINT OF CARE TEST DOCKED DEVICE UNSOLICITED RESULTS Performing Organization Address [facility]/State/ZIP Co de Phone Number [facility] [address] [place] [address] * XR ABDOMEN 1 VIEW (09/25/2023 9:07 AM EDT) Anatomical Region Laterality Modality Abdomen, Pelvis Digital Radiogra phy 09/25/2023 9:00 AM EDT Impressions 09/25/2023 9:38 AM EDT IMPRESSION: Gynecological follow-up advised THIS DOCUMENT HAS BEEN ELECTRONICALLY SIGNED BY CARLOTTA ALEXANDER MD Narrative 09/25/2023 9:38 AM EDT PROCEDURE INFORMATION: Exam: XR Abdomen Exam date and time: 09/25/2023 9:00 AM Age: 58 years old Clinical indication: Other: Abd pain and tenderness pelvic area, bloating and constipation; Additional info: Abd pain and bloating TECHNIQUE: Imaging protocol: Radiologic exam of the abdomen. Views: Frontal supine view of the abdomen. 1 View. COMPARISON: CT ABDOMEN PELVIS WO(Adult) 07/31/2023 12:13 PM FINDINGS: Gastrointestinal tract: The stool and gas pattern is nonspecific. The stool and gas pattern is nonspecific. Intraperitoneal space: There is a stent identified in the left upper quadrant Organs: Surgical clips are seen from prior cholecystectomy. There is increased density over the pelvis. This may be due to the uterus. 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 Views: Frontal supine view of the abdomen. 1 View. COMPARISON: CT ABDOMEN PELVIS WO(Adult) 07/31/2023 12:13 PM FINDINGS: Gastrointestinal tract: The stool and gas pattern is nonspecific. Thestool and gas pattern is nonspecific. Intraperitoneal space: There is a stent identified in the left upperquadrant Organs: Surgical clips are seen from prior cholecystectomy. There isincreased density over the pelvis. This may be due to the uterus. Gynecologicalfollow-up is advised for assessment the endometrial stripe Vasculature: Vascular calcification is seen Bones/joints: There is a rotary scoliosis convex to the left within thespine Soft tissues: There surgical clips in the right inguinal region IMPRESSION IMPRESSION: Gynecological follow-up advised THIS DOCUMENT HAS BEEN ELECTRONICALLY SIGNED BY CARLOTTA ALEXANDER MD Wilner Gross MD RADIOLOGY (RA D GENERAL) * (ABNORMAL) GLUCOSE METER, POINT OF CARE (09/25/2023 8:13 AM EDT) Glucose Meter 181(H) 70 - 120 mg/dL 09/25/2023 9:18 AM EDT [facility] Blood Whole blood specimen / Unknown 09/25/2023 8:13 AM EDT 09/25/2023 9:18 AM EDT Wilner Gross MD LAB POINT OF CARE TEST DOCKED DEVICE UNSOLICITED RESULTS [facility] [address] [place] [id number] * MAGNESIUM (09/25/2023 6:37 AM EDT) Magnesium 2.3 1.5 - 2.6 mg/dL 09/25/2023 7:22 AM EDT LABORATORY [facility] Blood Venous blood specimen / Unknown Venipuncture / Unknown 09/25/2023 6:37 AM EDT 09/25/2023 6:56 AM EDT Min Min Suzie SNIDER LAB BLOOD ORDERABLES LABORATORY [address] [address] * PHOSPHORUS (09/25/2023 6:37 AM EDT) Phosphorus 4.6 2.5 - 4.8 mg/dL 09/25/2023 7:22 AM EDT LABORATORY [facility] Blood Venous blood specimen / Unknown Venipuncture / Unknown 09/25/2023 6:37 AM EDT 09/25/2023 6:56 AM EDT Min Min Suzie SNIDER LAB BLOOD ORDERABLES LABORATORY [address] [id number] * (ABNORMAL) BASIC METABOLIC PANEL (09/25/2023 6:37 AM EDT) BUN 66(H) 6 - 20 mg/dL 09/25/2023 7:22 AM EDT [facility]ATORY [facility] Creatinine 1.2(H) 0.5 - 1.0 mg/dL 09/25/2023 7:22 AM EDT [facility]ORY [facility] Estimated Glomerular Filtration Rate 50(L) >=60 mL/min 09/25/2023 7:22 AM EDT LAB[facility]ORY [facility] Comment:eGFR is calculated b ased on the CKD-EPI 2020 equation Sodium 139 135 - 146 mmol/L 09/25/2023 7:22 AM EDT LAB[facility]ATORY [facility] Potassium 4.5 3.5 - 5.1 mmol/L 09/25/2023 7:22 AM EDT [facility] Chloride 110(H) 98 - 107 mmol/L 09/25/2023 7:22 AM EDT [facility]ORY [facility] CO2 16(L) 22 - 32 mmol/L 09/25/2023 7:22 AM EDT [facility] Anion Gap 13 7 - 15 mmol/L 09/25/2023 7:22 AM EDT [facility]ORY [facility] Glucose 116 70 - 120 mg/dL 09/25/2023 7:22 AM EDT [facility]ORY [facility] Calcium 8.6 8.4 - 10.2 mg/dL 09/25/2023 7:22 AM EDT [facility]ORY [facility] Blood Venous blood specimen / Unknown Venipuncture / Unknown 09/25/2023 6:37 AM EDT 09/25/2023 6:56 AM EDT Min Min Suzie SNIDER LAB BLOOD ORDERABLES Performing Organization Address City/[facility]/ZIP Co de Phone Number LABORATORY [address] [address] * EXTRA LAVENDER TOP (09/25/2023 6:35 AM EDT) Blood Venous blood specimen / Unknown Venipuncture / Unknown 09/25/2023 6:35 AM EDT 09/25/2023 6:57 AM EDT Wilner Gross MD LAB BLOOD ORD ERABLES Performing Organization Address City/[facility]/ZIP Co de Phone Number LABORATORY [address] [address] * GLUCOSE METER, POINT OF CARE (09/25/2023 6:27 AM EDT) Glucose Meter 113 70 - 120 mg/dL 09/25/2023 6:30 AM EDT [facility] Blood Whole blood specimen / Unknown 09/25/2023 6:27 AM EDT 09/25/2023 6:30 AM EDT Wilner Gross MD LAB POINT OF CARE TEST DOCKED DEVICE UNSOLICITED RESULTS Performing Organization Address [facility] Co de Phone Number [facility] [address] [place] [phone] * (ABNORMAL) GLUCOSE METER, POINT OF CARE (09/25/2023 12:01 AM EDT) Glucose Meter 124(H) 70 - 120 mg/dL 09/25/2023 12:10 AM EDT [facility] Blood Whole blood specimen / Unknown 09/25/2023 12:01 AM EDT 09/25/2023 12:10 AM EDT Wilner Gross MD LAB POINT OF CARE TEST DOCKED DEVICE UNSOLICITED RESULTS Performing Organization Address [facility] Co de Phone Number [facility] [address] [place] [phone] * GLUCOSE METER, POINT OF CARE (09/24/2023 5:31 PM EDT) Glucose Meter 88 70 - 120 mg/dL 09/24/2023 5:36 PM EDT [facility] Blood Whole blood specimen / Unknown 09/24/2023 5:31 PM EDT 09/24/2023 5:36 PM EDT Wilner Gross MD LAB POINT OF CARE TEST DOCKED DEVICE UNSOLICITED RESULTS [facility] [address] [place] [address] * URINALYSIS, REFLEX TO MICROSCOPIC (09/24/2023 1:02 PM EDT) Color, Urine Yellow Light Yellow, Yellow, Dark Yellow 09/24/2023 1:47 PM EDT [facility]ORY [facility] Clarity, Urine Clear Clear 09/24/2023 1:47 PM EDT [facility] Glucose, Urine Negative Negative mg/dL 09/24/2023 1:47 PM EDT [facility] Bilirubin, Urine Negative Negative 09/24/2023 1:47 PM EDT [facility] Ketone, Urine Negative Negative mg/dL 09/24/2023 1:47 PM EDT LAB[facility]ATORY [facility] Specific Muddy, Urine 1.015 1.003 - 1.030 09/24/2023 1:47 PM EDT [facility] Blood, Urine Negative Negative 09/24/2023 1:47 PM EDT LAB[facility]ORY [facility] pH, Urine 6.0 5.0 - 7.5 Units 09/24/2023 1:47 PM EDT [facility] Protein, Urine Negative Negative mg/dL 09/24/2023 1:47 PM EDT [facility] Urobilinogen, Urine 0.2 0.2, 1.0 mg/dL 09/24/2023 1:47 PM EDT [facility] Nitrite, Urine Negative Negative 09/24/2023 1:47 PM EDT [facility] Esterase, Urine Negative Negative 1:47 PM EDT [facility] Comment, Urine 09/24/2023 1:47 PM EDT [facility] Comment:Screen negative - Mi croscopic not performed. Urine Urine specimen obtained by clean catch procedure / Unknown Non-blood Collection / Unknown 09/24/2023 1:02 PM EDT 09/24/2023 1:14 PM EDT Wilner Gross MD LAB URINE ORD ERABLES Performing Organization Address [facility] Co de Phone Number LABORATORY [facility] [address] [place] [address] * (ABNORMAL) GLUCOSE METER, POINT OF CARE (09/24/2023 11:47 AM EDT) Glucose Meter 191(H) 70 - 120 mg/dL 09/24/2023 1:29 PM EDT [facility] Blood Whole blood specimen / Unknown 09/24/2023 11:47 AM EDT 09/24/2023 1:29 PM EDT Wilner Gross MD LAB POINT OF CARE TEST DOCKED DEVICE UNSOLICITED RESULTS Performing Organization Address [facility] Phone Number [facility] [address] [place] [phone] * GLUCOSE METER, POINT OF CARE (09/24/2023 6:11 AM EDT) Glucose Meter 94 70 - 120 mg/dL 09/24/2023 6:49 AM EDT [facility] Blood Whole blood specimen / Unknown 09/24/2023 6:11 AM EDT 09/24/2023 6:49 AM EDT Wilner Gross MD LAB POINT OF CARE TEST DOCKED DEVICE UNSOLICITED RESULTS Performing Organization Address [facility] Co de Phone Number [facility] [address] [place] [phone] * MAGNESIUM (09/24/2023 5:34 AM EDT) Magnesium 2.0 1.5 - 2.6 mg/dL 09/24/2023 6:30 AM EDT LABORATORY [facility] Blood Venous blood specimen / Unknown Venipuncture / Unknown 09/24/2023 5:34 AM EDT 09/24/2023 6:03 AM EDT Min Min Suzie SNIDER LAB BLOOD ORDERABLES Performing Organization Address City/[facility]/ZIP Co de Phone Number LABORATORY [address] [phone] * PHOSPHORUS (09/24/2023 5:34 AM EDT) Phosphorus 4.2 2.5 - 4.8 mg/dL 09/24/2023 6:30 AM EDT LABORATORY GL Blood Venous blood specimen / Unknown Venipuncture / Unknown 09/24/2023 5:34 AM EDT 09/24/2023 6:03 AM EDT Min Min Suzie SNIDER LAB BLOOD ORDERABLES Performing Organization Address City/[facility] Co de Phone Number LABORATORY [address] [address] * (ABNORMAL) BASIC METABOLIC PANEL (09/24/2023 5:34 AM EDT) BUN 47(H) 6 - 20 mg/dL 09/24/2023 6:30 AM EDT LABORATORY GL Creatinine 1.0 0.5 - 1.0 mg/dL 09/24/2023 6:30 AM EDT LAB[facility]ATORY [facility] Estimated Glomerular Filtration Rate 63 >=60 mL/min 09/24/2023 6:30 AM EDT LAB[facility]ATORY [facility] Comment:eGFR is calculated b ased on the CKD-EPI 2020 equation Sodium 136 135 - 146 mmol/L 09/24/2023 6:30 AM EDT LAB[facility]ATORY [facility] Potassium 4.4 3.5 - 5.1 mmol/L 09/24/2023 6:30 AM EDT LAB[facility]ORY [facility] Chloride 110(H) 98 - 107 mmol/L 09/24/2023 6:30 AM EDT LAB[facility]ATORY [facility] CO2 17(L) 22 - 32 mmol/L 09/24/2023 6:30 AM EDT LAB[facility]ATORY [facility] Anion Gap 9 7 - 15 mmol/L 09/24/2023 6:30 AM EDT LAB[facility]ATORY [facility] Glucose 95 70 - 120 mg/dL 09/24/2023 6:30 AM EDT LAB[facility]ATORY [facility] Calcium 7.8(L) 8.4 - 10.2 mg/dL 09/24/2023 6:30 AM EDT LABORATORY [facility] Blood Venous blood specimen / Unknown Venipuncture / Unknown 09/24/2023 5:34 AM EDT 09/24/2023 6:03 AM EDT Min Min Suzie SNIDER LAB BLOOD ORDERABLES Performing Organization Address City/[facility]/ZIP Co de Phone Number LABORATORY [address] [address] * EXTRA LAVENDER TOP (09/24/2023 5:32 AM EDT) Blood Venous blood specimen / Unknown Venipuncture / Unknown 09/24/2023 5:32 AM EDT 09/24/2023 6:03 AM EDT Wilner Gross MD LAB BLOOD ORD ERABLES Performing Organization Address [facility] Co de Phone Number LABORATORY [address] [address] * (ABNORMAL) GLUCOSE METER, POINT OF CARE (09/24/2023 12:12 AM EDT) Glucose Meter 124(H) 70 - 120 mg/dL 09/24/2023 12:15 AM EDT [facility] Blood Whole blood specimen / Unknown 09/24/2023 12:12 AM EDT 09/24/2023 12:15 AM EDT Wilner Gross MD LAB POINT OF CARE TEST DOCKED DEVICE UNSOLICITED RESULTS Performing Organization Address City/[facility] Co de Phone Number [facility] [address] [place] [phone] * (ABNORMAL) GLUCOSE METER, POINT OF CARE (09/23/2023 6:22 PM EDT) Glucose Meter 187(H) 70 - 120 mg/dL 09/23/2023 6:25 PM EDT [facility] Blood Whole blood specimen / Unknown 09/23/2023 6:22 PM EDT 09/23/2023 6:25 PM EDT Wilner Gross MD LAB POINT OF CARE TEST DOCKED DEVICE UNSOLICITED RESULTS Performing Organization Address City/[facility]/ZIP Co de Phone Number [facility] [address] [place] [address] * (ABNORMAL) ZINC (09/23/2023 12:53 PM EDT) Zinc 38(L) 60 - 130 mcg/dL 09/27/2023 2:04 AM EDT [facility] MCALLISTER Comment: This test was developed and its analytical performance characteristics have been determined by [facility] [place], [place]. It has not been cleared or approved by the U.S. Food and Drug Administration. This assay has been validated pursuant to the CLIA regulations and is used for clinical purposes. Test Performed at: [facility] Armando Chanel M.D., Ph.D.,Director of Laboratories Blood Venous blood specimen / Unknown Venipuncture / Unknown 09/23/2023 12:53 PM EDT 09/23/2023 12:57 PM EDT Susanne Regalado MD LAB BLOOD ORDERABLES Performing Organization Address [facility] Co de Phone Number [address] [address] * COPPER, SERUM OR PLASMA (09/23/2023 12:53 PM EDT) Copper 85 70 - 175 mcg/dL 09/27/2023 2:05 AM EDT [facility] MCALLISTER Comment: This test was developed and its analytical performance characteristics have been determined by [facility] [place], [place]. It has not been cleared or approved by the U.S. Food and Drug Administration. This assay has been validated pursuant to the CLIA regulations and is used for clinical purposes. Test Performed at: [facility] [address] Armando Chanel M.D., Ph.D.,Director of Laboratories Blood Venous blood specimen / Unknown Venipuncture / Unknown 09/23/2023 12:53 PM EDT 09/23/2023 12:57 PM EDT Susanne Regalado MD LAB BLOOD ORDERABLES Performing Organization Address [facility] de Phone Number [facility] [address] [place] [address] * (ABNORMAL) VITAMIN B1 (THIAMINE), BLOOD, LC/MS/MS (09/23/2023 12:53 PM EDT) Vitamin B1 (Thiamine),B 250(H) 78 - 185 nmol/L 09/29/2023 11:50 AM EDT [facility] MCALLISTER Comment: Vitamin supplementation within 24 hours prior to blood draw may affect the accuracy of the results. This test was developed and its analytical performance characteristics have been determined by [facility] [place], [place]. It has not been cleared or approved by the U.S. Food and Drug Administration. This assay has been validated pursuant to the CLIA regulations and is used for clinical purposes. Test Performed at: [facility] [id number] Armando Chanel M.D., Ph.D.,Director of Laboratories Blood Venous blood specimen / Unknown Venipuncture / Unknown 09/23/2023 12:53 PM EDT 09/23/2023 12:58 PM EDT Susanne Regalado MD LAB BLOOD ORDERABLES Performing Organization Address [facility] de Phone Number [facility] [address] [place] [address] * (ABNORMAL) VITAMIN K (09/23/2023 12:53 PM EDT) Pathologist [facility] Vitamin K >2500(H) 130 - 1500 pg/mL 09/28/2023 7:12 PM EDT W[facility] MCALLISTER Comment: This test was developed and its analytical performance characteristics have been determined by [facility]. It has not been cleared or approved by the U.S. Food and Drug Administration. This assay has been validated pursuant to the CLIA regulations and is used for clinical purposes. Test Performed at: [facility] [address] Armando Chanel M.D., Ph.D.,Director of Laboratories Blood Venous blood specimen / Unknown Venipuncture / Unknown 09/23/2023 12:53 PM EDT 09/23/2023 12:57 PM EDT Susanne Regalado MD LAB BLOOD ORDERABLES Performing Organization Address [facility]/ZIP Co de Phone Number [address] [address] * (ABNORMAL) VITAMIN E (TOCOPHEROL) (09/23/2023 12:52 PM EDT) Alpha-Tocopherol 4.6(L) 5.7 - 19.9 mg/L 09/28/2023 4:27 AM EDT [facility] MCALLISTER Comment: Levels of alpha-tocopherol <5 mg/L are consistent with Vitamin E deficiency in adults. Pioa-Whvap-Lnlnenxg ol 2.6 <=4.3 mg/L 09/28/2023 4:27 AM EDT W[facility] MCALLISTER Comment: Vitamin supplementation within 24 hours prior to blood draw may affect the accuracy of the results. This test was developed and its analytical performance characteristics have been determined by [facility] [place], [place]. It has not been cleared or approved by the U.S. Food and Drug Administration. This assay has been validated pursuant to the CLIA regulations and is used for clinical purposes. Test Performed at: [facility] [address] Armando Chanel M.D., Ph.D.,Director of Laboratories Blood Venous blood specimen / Unknown Venipuncture / Unknown 09/23/2023 12:52 PM EDT 09/23/2023 12:57 PM EDT Susanne Regalado MD LAB BLOOD ORDERABLES [facility] [address] [place] [address] * (ABNORMAL) METHYLMALONIC ACID, SERUM (09/23/2023 12:51 PM EDT) Pathologist [facility] Methylmalonic Acid 2045(H) 87 - 318 nmol/L 09/28/2023 8:32 AM EDT W[facility] MCALLISTER Comment: THIS RESULT HAS BEEN VERIFIED BY REPEAT ANALYSIS. This test was developed and its analytical performance characteristics have been determined by [facility] [place], [place]. It has not been cleared or approved by the U.S. Food and Drug Administration. This assay has been validated pursuant to the CLIA regulations and is used for clinical purposes. Test Performed at: [facility] [address] Armando Chanel M.D., Ph.D.,Director of Laboratories Blood Venous blood specimen / Unknown Venipuncture / Unknown 09/23/2023 12:51 PM EDT 09/23/2023 12:57 PM EDT Susanne Regalado MD LAB BLOOD ORDERABLES [facility] [address] [place] [address] * VITAMIN A (RETINOL) (09/23/2023 12:51 PM EDT) [facility] Vitamin A (Retinol) 51 38 - 98 mcg/dL 09/28/2023 4:34 AM EDT [facility] [employer] MCALLISTER Comment: Vitamin supplementation within 24 hours prior to blood draw may affect the accuracy of the results. This test was developed and its analytical performance characteristics have been determined by [facility] [place], [place]. It has not been cleared or approved by the U.S. Food and Drug Administration. This assay has been validated pursuant to the CLIA regulations and is used for clinical purposes. Test Performed at: [facility] [address] Armando Chanel M.D., Ph.D.,Director of Laboratories Blood Venous blood specimen / Unknown Venipuncture / Unknown 09/23/2023 12:51 PM EDT 09/23/2023 12:57 PM EDT Susanne Regalado MD LAB BLOOD ORDERABLES [facility] [employer] MCALLISTER [address] [place] [address] * MAGNESIUM (09/23/2023 12:49 PM EDT) Magnesium 2.0 1.5 - 2.6 mg/dL 09/23/2023 1:19 PM EDT LABORATORY [facility] Blood Venous blood specimen / Unknown Venipuncture / Unknown 09/23/2023 12:49 PM EDT 09/23/2023 12:57 PM EDT Min Alen Larsen MD LAB BLOOD ORDERABLES Performing Organization Address City/[facility]/ZIP Co de Phone Number LABORATORY [address] [address] * PHOSPHORUS (09/23/2023 12:49 PM EDT) Phosphorus 3.9 2.5 - 4.8 mg/dL 09/23/2023 1:19 PM EDT LABORATORY [facility] Blood Venous blood specimen / Unknown Venipuncture / Unknown 09/23/2023 12:49 PM EDT 09/23/2023 12:57 PM EDT Min Alen Larsen MD LAB BLOOD ORDERABLES LABORATORY [address] [address] * (ABNORMAL) BASIC METABOLIC PANEL (09/23/2023 12:49 PM EDT) BUN 45(H) 6 - 20 mg/dL 09/23/2023 1:19 PM EDT LABORATORY GL Creatinine 1.1(H) 0.5 - 1.0 mg/dL 09/23/2023 1:19 PM EDT LABORATORY GL Estimated Glomerular Filtration Rate 58(L) >=60 mL/min 09/23/2023 1:19 PM EDT LABORATORY [facility] Comment:eGFR is calculated b ased on the CKD-EPI 2020 equation Sodium 134(L) 135 - 146 mmol/L 09/23/2023 1:19 PM EDT LABORATORY [facility] Potassium 5.7(H) 3.5 - 5.1 mmol/L 09/23/2023 1:19 PM EDT LAB[facility]ATORY [facility] Chloride 107 98 - 107 mmol/L 09/23/2023 1:19 PM EDT LAB[facility]ATORY [facility] CO2 16(L) 22 - 32 mmol/L 09/23/2023 1:19 PM EDT LAB[facility]ORY [facility] Anion Gap 11 7 - 15 mmol/L 09/23/2023 1:19 PM EDT LAB[facility]ORY [facility] Glucose 150(H) 70 - 120 mg/dL 09/23/2023 1:19 PM EDT LAB[facility]ATORY [facility] Calcium 8.5 8.4 - 10.2 mg/dL 09/23/2023 1:19 PM EDT LAB[facility]ATORY [facility] Blood Venous blood specimen / Unknown Venipuncture / Unknown 09/23/2023 12:49 PM EDT 09/23/2023 12:57 PM EDT Alen Larsen MD LAB BLOOD ORDERABLES Performing Organization Address [facility] Co de Phone Number LABORATORY [facility] [address] [place] [phone] * GLUCOSE METER, POINT OF CARE (09/23/2023 11:08 AM EDT) [facility] Signature Glucose Meter 98 70 - 120 mg/dL 09/23/2023 11:46 AM EDT [facility] Blood Whole blood specimen / Unknown 09/23/2023 11:08 AM EDT 09/23/2023 11:46 AM EDT Wilner Gross MD LAB POINT OF CARE TEST DOCKED DEVICE UNSOLICITED RESULTS Performing Organization Address [facility] Co de Phone Number [facility] [address] [place] [phone] * GLUCOSE METER, POINT OF CARE (09/23/2023 5:35 AM EDT) Glucose Meter 111 70 - 120 mg/dL 09/23/2023 5:45 AM EDT [facility] Blood Whole blood specimen / Unknown 09/23/2023 5:35 AM EDT 09/23/2023 5:45 AM EDT Wilner Gross MD LAB POINT OF CARE TEST DOCKED DEVICE UNSOLICITED RESULTS Performing Organization Address City/[facility]/ZIP Co de Phone Number [facility] [address] [place] [address] * GLUCOSE METER, POINT OF CARE (09/23/2023 12:10 AM EDT) Glucose Meter 119 70 - 120 mg/dL 09/23/2023 12:33 AM EDT [facility] Blood Whole blood specimen / Unknown 09/23/2023 12:10 AM EDT 09/23/2023 12:33 AM EDT Wilner Gross MD LAB POINT OF CARE TEST DOCKED DEVICE UNSOLICITED RESULTS Performing Organization Address [facility] Co de Phone Number [facility] [address] [place] [phone] * GLUCOSE METER, POINT OF CARE (09/22/2023 7:01 PM EDT) Glucose Meter 106 70 - 120 mg/dL 09/22/2023 7:04 PM EDT [facility] Blood Whole blood specimen / Unknown 09/22/2023 7:01 PM EDT 09/22/2023 7:04 PM EDT Wilner Gross MD LAB POINT OF CARE TEST DOCKED DEVICE UNSOLICITED RESULTS Performing Organization Address [facility] Co de Phone Number [facility] [address] [place] [address] * GLUCOSE METER, POINT OF CARE (09/22/2023 12:32 PM EDT) Glucose Meter 106 70 - 120 mg/dL 09/22/2023 12:42 PM EDT [facility] Blood Whole blood specimen / Unknown 09/22/2023 12:32 PM EDT 09/22/2023 12:42 PM EDT Wilner Gross MD LAB POINT OF CARE TEST DOCKED DEVICE UNSOLICITED RESULTS Performing Organization Address City/[facility]/ZIP Co de Phone Number [facility] [address] [place] [address] * FERRITIN (09/22/2023 8:32 AM EDT) [facility] Ferritin 16 13 - 150 ng/mL 09/23/2023 1:04 AM EDT LABORATORY C Comment:Postmenopausal women have higher ferritin levels than pre-menopausal women. The above reference interval is based on pre-menopausal women. Blood Blood sample taken from central line / Unknown Central Line / Unknown 09/22/2023 8:32 AM EDT 09/22/2023 8:35 AM EDT Susanne Regalado MD LAB BLOOD ORDERABLES Performing Organization Address [facility] Co de Phone Number LABORATORY [facility] [address] [place] [address] * IRON SCREEN, INCLUDING TIBC (09/22/2023 8:32 AM EDT) Iron 39 33 - 151 ug/dL 09/23/2023 1:27 AM EDT LABORATORY [facility] Iron Binding Capacity 258 250 - 425 ug/dL 09/23/2023 1:27 AM EDT LABORATORY C Transferrin Saturation Percent 15 15 - 55 % 09/23/2023 1:27 AM EDT LABORATORY [facility] Blood Blood sample taken from central line / Unknown Central Line / Unknown 09/22/2023 8:32 AM EDT 09/22/2023 8:35 AM EDT Susanne Regalado MD LAB BLOOD ORDERABLES Performing Organization Address City/[facility]/ZIP Co de Phone Number LABORATORY [facility] [address] [place] [address] * VITAMIN B12 (09/22/2023 8:32 AM EDT) Vitamin B12 398 232 - 1,245 pg/mL 09/23/2023 1:04 AM EDT LABORATORY [facility] Blood Blood sample taken from central line / Unknown Central Line / Unknown 09/22/2023 8:32 AM EDT 09/22/2023 8:35 AM EDT Susanne Regalado MD LAB BLOOD ORDERABLES LABORATORY [facility] [address] [place] [address] * FOLIC ACID (09/22/2023 8:32 AM EDT) Folic Acid 8.2 >4.5 ng/mL 09/23/2023 1:04 AM EDT LABORATORY [facility] Blood Blood sample taken from central line / Unknown Central Line / Unknown 09/22/2023 8:32 AM EDT 09/22/2023 8:35 AM EDT Susanne Regalado MD LAB BLOOD ORDERABLES LABORATORY [facility] [address] [place] [address] * (ABNORMAL) 25-HYDROXY VITAMIN D (09/22/2023 8:32 AM EDT) 25-Hydroxy Vitamin D 9(L) >19 ng/mL 09/23/2023 1:04 AM EDT LABORATORY [facility] Blood Blood sample taken from central line / Unknown Central Line / Unknown 09/22/2023 8:32 AM EDT 09/22/2023 8:35 AM EDT Narrative LABORATORY [facility] - 09/23/2023 1:04 AM EDT Deficient: <20 ng/mL Insufficient: 20-29 ng/mL Recommended/Optimum:30-50 ng/mL Vitamin D intoxication is rare. If suspicious of Vitamin D toxicity, evaluation of serum Calcium and PTH is recommended. Susanne Regalado MD LAB BLOOD ORDERABLES LABORATORY [facility] [address] [place] [address] * MAGNESIUM (09/22/2023 8:32 AM EDT) Magnesium 1.9 1.5 - 2.6 mg/dL 09/22/2023 9:07 AM EDT LABORATORY [facility] Blood Blood sample taken from central line / Unknown Central Line / Unknown 09/22/2023 8:32 AM EDT 09/22/2023 8:35 AM EDT Alen Larsen MD LAB BLOOD ORDERABLES Performing Organization Address [facility] Co de Phone Number LABORATORY [address] [address] * PHOSPHORUS (09/22/2023 8:32 AM EDT) Phosphorus 3.2 2.5 - 4.8 mg/dL 09/22/2023 9:07 AM EDT LABORATORY [facility] Blood Blood sample taken from central line / Unknown Central Line / Unknown 09/22/2023 8:32 AM EDT 09/22/2023 8:35 AM EDT Alen Larsen MD LAB BLOOD ORDERABLES Performing Organization Address [facility] de Phone Number LABORATORY [address] [address] * (ABNORMAL) BASIC METABOLIC PANEL (09/22/2023 8:32 AM EDT) BUN 39(H) 6 - 20 mg/dL 09/22/2023 9:07 AM EDT LABORATORY [facility] Creatinine 1.1(H) 0.5 - 1.0 mg/dL 09/22/2023 9:07 AM EDT LABORATORY GL Estimated Glomerular Filtration Rate 57(L) >=60 mL/min 09/22/2023 9:07 AM EDT LABORATORY [facility] Comment:eGFR is calculated b ased on the CKD-EPI 2020 equation Sodium 135 135 - 146 mmol/L 09/22/2023 9:07 AM EDT LABORATORY GLH Potassium 5.1 3.5 - 5.1 mmol/L 09/22/2023 9:07 AM EDT LABORATORY GLH Chloride 112(H) 98 - 107 mmol/L 09/22/2023 9:07 AM EDT LABORATORY GLH CO2 16(L) 22 - 32 mmol/L 09/22/2023 9:07 AM EDT LABORATORY GLH Anion Gap 7 7 - 15 mmol/L 09/22/2023 9:07 AM EDT LABORATORY GLH Glucose 88 70 - 120 mg/dL 09/22/2023 9:07 AM EDT LABORATORY GLH Calcium 8.2(L) 8.4 - 10.2 mg/dL 09/22/2023 9:07 AM EDT LABORATORY GL[facility] Blood Blood sample taken from central line / Unknown Central Line / Unknown 09/22/2023 8:32 AM EDT 09/22/2023 8:35 AM EDT Alen Larsen MD LAB BLOOD ORDERABLES LABORATORY [address] [address] * GLUCOSE METER, POINT OF CARE (09/22/2023 6:33 AM EDT) Glucose Meter 96 70 - 120 mg/dL 09/22/2023 6:47 AM EDT [facility] Blood Whole blood specimen / Unknown 09/22/2023 6:33 AM EDT 09/22/2023 6:47 AM EDT Wilner Gross MD LAB POINT OF CARE TEST DOCKED DEVICE UNSOLICITED RESULTS Performing Organization Address [facility]/ZIP Co de Phone Number [facility]ORAT[facility] [address] [place] [id number] * GLUCOSE METER, POINT OF CARE (09/22/2023 12:03 AM EDT) Glucose Meter 105 70 - 120 mg/dL 09/22/2023 12:12 AM EDT [facility] Blood Whole blood specimen / Unknown 09/22/2023 12:03 AM EDT 09/22/2023 12:12 AM EDT Wilner Gross MD LAB POINT OF CARE TEST DOCKED DEVICE UNSOLICITED RESULTS Performing Organization Address City/[facility]/ZIP Co de Phone Number [facility] [address] [place] [address] * (ABNORMAL) GLUCOSE METER, POINT OF CARE (09/21/2023 6:35 PM EDT) Glucose Meter 132(H) 70 - 120 mg/dL 09/21/2023 7:06 PM EDT [facility] Blood Whole blood specimen / Unknown 09/21/2023 6:35 PM EDT 09/21/2023 7:06 PM EDT Wilner Gross MD LAB POINT OF CARE TEST DOCKED DEVICE UNSOLICITED RESULTS Performing Organization Address [facility] Co de Phone Number [facility] [address] [place] [address] * GLUCOSE METER, POINT OF CARE (09/21/2023 12:27 PM EDT) Glucose Meter 94 70 - 120 mg/dL 09/21/2023 12:32 PM EDT [facility] Blood Whole blood specimen / Unknown 09/21/2023 12:27 PM EDT 09/21/2023 12:32 PM EDT Wilner Gross MD LAB POINT OF CARE TEST DOCKED DEVICE UNSOLICITED RESULTS Performing Organization Address [facility] Co de Phone Number [facility] [address] [place] [address] * (ABNORMAL) CBC (09/21/2023 11:28 AM EDT) WBC 5.66 4.00 - 10.80 K/uL 09/21/2023 11:48 AM EDT LABORATORY GLH RBC 2.88 3.85 - 5.15 M/uL 09/21/2023 11:48 AM EDT LABORATORY GL HGB 9.3(L) 12.0 - 15.3 g/dL 09/21/2023 11:48 AM EDT LABORATORY GL HCT 29.8(L) 36.0 - 45.2 % 09/21/2023 11:48 AM EDT LABORATORY [facility] MCV 103.5 81.5 - 97.5 fL 09/21/2023 11:48 AM EDT LABORATORY GL MCH 32.3 27.0 - 34.0 pg 09/21/2023 11:48 AM EDT LABORATORY [facility] MCHC 31.2 32.0 - 36.0 g/dL 09/21/2023 11:48 AM EDT LABORATORY [facility] RDW 14.8 11.5 - 15.5 % 09/21/2023 11:48 AM EDT LABORATORY [facility] PLT 330 140 - 400 K/uL 09/21/2023 11:48 AM EDT LABORATORY [facility] MPV 11.1 6.6 - 11.1 fL 09/21/2023 11:48 AM EDT LABORATORY [facility] nRBCs 0 <=0 /100 WBCs 09/21/2023 11:48 AM EDT LABORATORY [facility] Blood Venous blood specimen / Unknown Venipuncture / Unknown 09/21/2023 11:28 AM EDT 09/21/2023 11:38 AM EDT Wilner Gross MD LAB BLOOD ORD ERABLES LABORATORY [address] [address] * MAGNESIUM (09/21/2023 11:28 AM EDT) Magnesium 1.9 1.5 - 2.6 mg/dL 09/21/2023 12:03 PM EDT LABORATORY [facility] Blood Venous blood specimen / Unknown Venipuncture / Unknown 09/21/2023 11:28 AM EDT 09/21/2023 11:38 AM EDT Min Min Maw MD LAB BLOOD ORDERABLES Performing Organization Address City/[facility]/ZIP Co de Phone Number LABORATORY [facility] [address] [place], [place] [id number] * (ABNORMAL) PHOSPHORUS (09/21/2023 11:28 AM EDT) Phosphorus 5.0(H) 2.5 - 4.8 mg/dL 09/21/2023 12:03 PM EDT LABORATORY GL Blood Venous blood specimen / Unknown Venipuncture / Unknown 09/21/2023 11:28 AM EDT 09/21/2023 11:38 AM EDT Min Min Suzie SNIDER LAB BLOOD ORDERABLES Performing Organization Address [facility] Co de Phone Number LABORATORY [address] [address] * (ABNORMAL) BASIC METABOLIC PANEL (09/21/2023 11:28 AM EDT) BUN 37(H) 6 - 20 mg/dL 09/21/2023 12:03 PM EDT LABORATORY GLH Creatinine 1.2(H) 0.5 - 1.0 mg/dL 09/21/2023 12:03 PM EDT LABORATORY GLH Estimated Glomerular Filtration Rate 52(L) >=60 mL/min 09/21/2023 12:03 PM EDT LABORATORY GL[facility] Comment:eGFR is calculated b ased on the CKD-EPI 2020 equation Sodium 136 135 - 146 mmol/L 09/21/2023 12:03 PM EDT LABORATORY GLH Potassium 5.5(H) 3.5 - 5.1 mmol/L 09/21/2023 12:03 PM EDT LABORATORY GLH Chloride 111(H) 98 - 107 mmol/L 09/21/2023 12:03 PM EDT LABORATORY GLH CO2 13(L) 22 - 32 mmol/L 09/21/2023 12:03 PM EDT LABORATORY GLH Anion Gap 12 7 - 15 mmol/L 09/21/2023 12:03 PM EDT LABORATORY GLH Glucose 99 70 - 120 mg/dL 09/21/2023 12:03 PM EDT LABORATORY GLH Calcium 8.1(L) 8.4 - 10.2 mg/dL 09/21/2023 12:03 PM EDT LABORATORY [facility] Blood Venous blood specimen / Unknown Venipuncture / Unknown 09/21/2023 11:28 AM EDT 09/21/2023 11:38 AM EDT Min Min Suzie SNIDER LAB BLOOD ORDERABLES Performing Organization Address [facility] de Phone Number LABORATORY [address] [address] * (ABNORMAL) CALCIUM, IONIZED (09/21/2023 11:28 AM EDT) Calcium, Ionized 1.34(H) 1.13 - 1.32 mmol/L 09/21/2023 12:26 PM EDT LABORATORY [facility] Comment:This test was develo ped and its performance characteristics dtermined by [facility]. It has not been cleared or approved by the [place] Food and Drug Administration Blood Venous blood specimen / Unknown Venipuncture / Unknown 09/21/2023 11:28 AM EDT 09/21/2023 11:38 AM EDT Min Min Suzie SNIDER LAB BLOOD ORDERABLES Performing Organization Address [facility] de Phone Number LABORATORY [address] [address] * GLUCOSE METER, POINT OF CARE (09/21/2023 8:01 AM EDT) Glucose Meter 92 70 - 120 mg/dL 09/21/2023 8:21 AM EDT [facility] Blood Whole blood specimen / Unknown 09/21/2023 8:01 AM EDT 09/21/2023 8:21 AM EDT Wilner Gross MD LAB POINT OF CARE TEST DOCKED DEVICE UNSOLICITED RESULTS Performing Organization Address [facility] Co de Phone Number [facility] [address] [place] [id number] * GLUCOSE METER, POINT OF CARE (09/21/2023 12:39 AM EDT) Glucose Meter 98 70 - 120 mg/dL 09/21/2023 12:41 AM EDT [facility] Blood Whole blood specimen / Unknown 09/21/2023 12:39 AM EDT 09/21/2023 12:41 AM EDT Wilma Mayo MD LAB POINT OF CARE TEST DOCKED DEVICE UNSOLICITED RESULTS Performing Organization Address City/[facility]/ZIP Co de Phone Number [facility] [address] [place] [address] * EKG (09/20/2023 3:28 PM EDT) 09/20/2023 3:28 PM EDT Narrative Procedure Note Gerald Osorio DO - 09/20/2023 3:28 PM EDT REASON FOR STUDY: Electrolyte abnormality CONCLUSIONS: Normal sinus rhythm Low voltage QRS, consider pulmonary disease, pericardial effusion, ornormal variant Borderline ECG When compared with ECG of 08-Dec-2022 11:25, No significant change was found Ventricular Rate: 78 Atrial Rate: 78 [place] Interval: 156 QRS Duration: 80 QT/QTc: 370/421 ms P-R-T [place]: 65 : 4 : 56 degrees Carmela SALMERON EKG Performing Organization Address City/[facility] Co de Phone Number [facility] * SARS-COV-2 (COVID-19), NAAT (09/20/2023 2:49 PM EDT) SARS-CoV-2 (COVID-19) Result Negative Negative 09/20/2023 4:53 PM EDT LABORATORY [facility] Comment: 2019 Novel Coronavirus not detected. This express test was developed and its performance characteristics determined by [facility]. It has not been cleared or approved by the U.S. Food and Drug Administration (FDA). FDA does not require this test to go thru premarket FDA review. This test is used for clinical purposes. It should not be regarded as investigational or for research. This laboratory is certified under the Clinical Laboratory Improvement Amendments (CLIA) as qualified to perform high complexity clinical laboratory testing. This test is a nucleic acid amplification test (NAAT), a reverse transcriptase polymerase chain reaction (RT-PCR) test, or a Centers for Disease Control- acceptable equivalent. The test is performed in a high complexity Clinical Laboratory Improvement Amendments-(CLIA) certified laboratory. The test is acceptable for SARS-CoV-2 diagnosis, surveillance, and travel within the [place] and to most countries. Please check with local testing authorities about requirements before travel. The validation of bronchial specimens, tracheal aspirates, and sputum for this assay was developed and performance characteristics determined by [facility]. The validation of alternate specimen types has not been cleared or approved by the U.S. Food and Drug Administration (FDA). It has been determined that such clearance is not necessary. Upper Respiratory Mid-turbinate nasal swab / Unknown Non-blood Collection / Unknown 09/20/2023 2:49 PM EDT 09/20/2023 2:53 PM EDT Carmela SALMERON LAB MICRO - GENERAL ORDERABLES LABORATORY [address] [address] * XR CHEST 1 VIEW (09/20/2023 2:45 PM EDT) Anatomical Region Laterality Modality Chest Digital Radiogra phy 09/20/2023 2:28 PM EDT Impressions 09/20/2023 3:03 PM EDT IMPRESSION: 1. No acute cardiopulmonary disease. 2. Possible mild bronchitis. THIS DOCUMENT HAS BEEN ELECTRONICALLY SIGNED BY TERESA PATEL MD Narrative 09/20/2023 3:03 PM EDT PROCEDURE INFORMATION: Exam: XR Chest Exam date and time: 09/20/2023 2:28 PM Age: 58 years old Clinical indication: Other: General weakness; Additional info: Failure to thrive TECHNIQUE: Imaging protocol: Radiologic exam of the chest. Views: 1 view. COMPARISON: 1. DX XR CHEST 1 VIEW 12/11/2022 10:01 AM 2. Two-view chest x-ray 11/08/2022 FINDINGS: Tubes, catheters and devices: Left-sided central line, tip in the region of the cavoatrial junction, unchanged. Lungs: Persistent mild bronchial wall thickening. No developing focal infiltrate. Pleural spaces: No pleural effusion or pneumothorax. Heart/Mediastinum: Stable heart size. Bones/joints: Severe scoliosis thoracolumbar spine. Intraperitoneal space: Right upper quadrant clips. Procedure Note Teresa Patel MD - 09/20/2023 PROCEDURE INFORMATION: Exam: XR Chest Exam date and time: 09/20/2023 2:28 PM Age: 58 years old Clinical indication: Other: General weakness; Additional info: Failure to thrive TECHNIQUE: Imaging protocol: Radiologic exam of the chest. Views: 1 view. COMPARISON: 1. DX XR CHEST 1 VIEW 12/11/2022 10:01 AM 2. Two-view chest x-ray 11/08/2022 FINDINGS: Tubes, catheters and devices: Left-sided central line, tip in the regionof the cavoatrial junction, unchanged. Lungs: Persistent mild bronchial wall thickening. No developing focal infiltrate. Pleural spaces: No pleural effusion or pneumothorax. Heart/Mediastinum: Stable heart size. Bones/joints: Severe scoliosis thoracolumbar spine. Intraperitoneal space: Right upper quadrant clips. IMPRESSION IMPRESSION: 1. No acute cardiopulmonary disease. 2. Possible mild bronchitis. THIS DOCUMENT HAS BEEN ELECTRONICALLY SIGNED BY TERESA PATEL MD [facility] RADIOLOG[facility] (RAD GENER AL) documented in this encounter Visit Diagnoses Diagnosis Failure to thrive in adult- Primary Adult failure to thrive FTT (failure to thrive) in adult Adult failure to thrive Chest pain Chest pain, unspecified Electrolyte abnormality Electrolyte and fluid disorders not elsewhere classified Heart failure (HCC) Heart failure, unspecified Encounter for other specified special examinations [Z01.89] Bipolar disorder (HCC) Bipolar disorder, unspecified MDD (major depressive disorder), recurrent episode, moderate (HCC) Major depressive disorder, recurrent episode, moderate Hereditary and idiopathic peripheral neuropathy Unspecified hereditary and idiopathic peripheral neuropathy Chronic pain syndrome Intestinal postoperative nonabsorption Other and unspecified postsurgical nonabsorption Cachexia (HCC) Cachexia On total parenteral nutrition (TPN) Other specified conditions influencing health status Tobacco abuse Tobacco use disorder Fall at home Unspecified fall Generalized weakness Other malaise and fatigue Adjustment disorder Unspecified adjustment reaction ROBINSON (acute kidney injury) (HCC) Acute kidney failure, unspecified Acute urinary retention Other specified retention of urine Anemia Anemia, unspecified Hypoxia Hypoxemia Multifocal pneumonia Acute hypoxic respiratory failure (HCC) Mixed incontinence Mixed incontinence urge and stress (male)(female) Retention of urine Retention of urine, unspecified Acute pain of right shoulder documented in this encounter Administered Medications Inactive Administered Medications - up to 3 most recent administrations Medication Order MAR Action Action Date Dose Rate Site 1/2 NSS 1,000 mL with sodium bicarbonate 75 mEq infusion Intravenous, at 250 mL/hr, CONTINUOUS, Starting on Neelima 09/28/23 at 1615, Until Mon09/28/23 at 2014 New Bag 09/28/2023 5:59 PM EDT 250 mL/hr Restarted 09/28/2023 5:54 PM EDT 250 mL/hr Restarted 09/28/2023 5:12 PM EDT 250 mL/hr Acetaminophen (Tylenol) tab 650 mg 650 mg, Oral, Q6H PRN Pain, Mild, Fever >38C(100.5F), Starting on Mon09/20/23 at 1416, Until Mon09/29/23 at 1859, Maximum of 4 grams (4000 mg) per day. Given 09/29/2023 10:36 AM EDT 650 mg Given 09/27/2023 10:51 PM EDT 650 mg Given 09/26/2023 10:12 PM EDT 650 mg Acetaminophen (Tylenol) tab 650 mg 650 mg, Oral, ONCE, On 10/01/23 at 0030, For 1 dose, Maximum of 4 grams (4000 mg) per day. Given 10/01/2023 12:30 AM EDT 650 mg Acetaminophen (Tylenol) tab 650 mg 650 mg, Oral, Q6H PRN Other, Pain, Starting on Mon10/03/23 at 0556, Until Mon10/05/23 at 1229, Maximum of 4 grams (4000 mg) per day. Given 10/05/2023 6:00 AM E DT 650 mg Given 10/04/2023 9:20 PM EDT 650 mg Given 10/04/2023 9:38 AM EDT 650 mg Acetaminophen (Tylenol) tab 650 mg 650 mg, Oral, Q6H PRN Headache, Pain, Mild, Fever >38C(100.5F), Pain, Starting on Neelima 10/05/23 at 1229, Until Mon10/10/23 at 1556, Maximum of 4 grams (4000 mg) per day. Given 10/10/2023 5:38 AM EDT 650 mg Given 10/09/2023 7:27 PM EDT 650 mg Given 10/07/2023 10:33 AM EDT 650 mg Acetaminophen (Tylenol) tab 975 mg 975 mg, Oral, Q8H, First dose (after last modification) on Mon09/29/23 at 2200, Until Discontinued, Maximum of 4 grams (4000 mg) per day. Given 09/30/2023 9:37 PM EDT 975 mg Given 09/30/2023 1:07 PM EDT 975 mg Given 09/30/2023 5:10 AM EDT 975 mg Adult TPN central IV + Thiamine +Zinc + Octreotide 1,200 mL, Intravenous, [id number], Starting on Mon10/01/23 at 1800, Until Mon10/02/23 at 0959, For 16 hours, Infuse using a 1.2 micron in-line filter Restarted 10/02/2023 8:30 AM EDT 75 mL/hr Rate Verify 10/01/2023 6:26 PM EDT 75 mL/hr New Bag 10/01/2023 6:11 PM EDT 75 mL/hr Adult TPN central IV 1,200 mL, Intravenous, [id number], Starting on Mon09/20/23 at 1800, Until Mon09/21/23 at 1759, For 24 hours, Infuse using a 1.2 micron in-line filter Rate Verify 09/21/2023 4:11 PM EDT 50 mL/hr Rate Verify 09/21/2023 2:43 PM EDT 50 mL/hr Rate Verify 09/21/2023 10:28 AM EDT 50 mL/hr Adult TPN central IV 1,200 mL, Intravenous, [id number], Starting on Mon09/21/23 at 1800, Until Mon09/22/23 at 1759, For 24 hours, Infuse using a 1.2 micron in-line filter Rate Verify 09/22/2023 12:35 PM EDT 50 mL/hr Restarted 09/22/2023 8:30 AM EDT 50 mL/hr Rate Verify 09/22/2023 6:55 AM EDT 50 mL/hr Adult TPN central IV 1,200 mL, Intravenous, [id number], Starting on Mon09/22/23 at 1800, Until 09/23/23 at 1759, For 24 hours, Infuse using a 1.2 micron in-line filter Restarted 09/23/2023 11:23 AM EDT 50 mL/hr Rate Verify 09/23/2023 3:26 AM EDT 50 mL/hr Rate Verify 09/23/2023 12:27 AM EDT 50 mL/hr Adult TPN central IV 1,200 mL, Intravenous, [id number], Starting on 09/23/23 at 1800, Until 09/24/23 at 1759, For 24 hours, Infuse using a 1.2 micron in-line filter Restarted 09/24/2023 12:46 PM EDT 50 mL/hr Rate Verify 09/23/2023 11:00 PM EDT 50 mL/hr New Bag 09/23/2023 5:32 PM EDT 50 mL/hr Adult TPN central IV 1,200 mL, Intravenous, [id number], Starting on Mon09/24/23 at 1800, Until 09/25/23 at 0959, For 16 hours, Infuse using a 1.2 micron in-line filter Rate Verify 09/24/2023 6:33 PM EDT 75 mL/hr Rate Verify 09/24/2023 6:31 PM EDT 75 mL/hr Restarted 09/24/2023 6:07 PM EDT 75 mL/hr Adult TPN central IV 1,200 mL, Intravenous, [id number], Starting on Mon09/25/23 at 1800, Until Mon09/26/23 at 0559, For 12 hours, Infuse using a 1.2 micron in-line filter Rate Verify 09/25/2023 6:18 PM EDT 100 mL/hr New Bag 09/25/2023 6:03 PM EDT 100 mL/hr Adult TPN central IV 1,500 mL, Intravenous, [id number], Starting on Mon09/26/23 at 1800, Until 09/27/23 at 0559, For 12 hours, Infuse using a 1.2 micron in-line filter Rate Verify 09/27/2023 5:12 AM EDT 125 mL/hr Rate Verify 09/27/2023 2:42 AM EDT 125 mL/hr Rate Verify 09/26/2023 10:52 PM EDT 125 mL/hr Adult TPN central IV 1,500 mL, Intravenous, [id number], Starting on Mon09/27/23 at 1800, Until Neelima 09/28/23 at 0559, For 12 hours, Infuse using a 1.2 micron in-line filter Rate Verify 09/27/2023 11:34 PM EDT 125 mL/hr Rate Verify 09/27/2023 8:41 PM EDT 125 mL/hr New Bag 09/27/2023 6:31 PM EDT 125 mL/hr Adult TPN central IV 1,500 mL, Intravenous, [id number], Starting on Neelima 09/28/23 at 1800, Until Mon09/29/23 at 0559, For 12 hours, Infuse using a 1.2 micron in-line filter Rate Verify 09/28/2023 11:27 PM EDT 125 mL/hr New Bag 09/28/2023 6:49 PM EDT 125 mL/hr Adult TPN central IV 1,500 mL, Intravenous, [id number], Starting on Mon09/29/23 at 1800, Until 09/30/23 at 0559, For 12 hours, Infuse using a 1.2 micron in-line filter New Bag 09/29/2023 6:16 PM EDT 125 mL/hr Adult TPN central IV 1,500 mL, Intravenous, [id number], Starting on 09/30/23 at 1800, Until 10/01/23 at 0559, For 12 hours, Infuse using a 1.2 micron in-line filter Rate Verify 09/30/2023 6:32 PM EDT 125 mL/hr Rate Verify 09/30/2023 6:09 PM EDT 125 mL/hr New Bag 09/30/2023 5:32 PM EDT 125 mL/hr Adult TPN central IV 1,200 mL, Intravenous, [id number], Starting on Mon10/03/23 at 0600, Until Mon10/04/23 at 0459, For 23 hours, Infuse using a 1.2 micron in-line filter New Bag 10/03/2023 5:31 AM EDT 50 mL/hr Adult TPN central IV 1,050 mL, Intravenous, [id number], Starting on Mon10/03/23 at 1800, Until Mon10/04/23 at 1759, For 24 hours, Infuse using a 1.2 micron in-line filter New Bag 10/03/2023 6:31 PM EDT 44 mL/hr Adult TPN central IV 1,050 mL, Intravenous, [id number], Starting on Mon10/04/23 at 1800, Until Neelima 10/05/23 at 1359, For 20 hours, Infuse using a 1.2 micron in-line filter Restarted 10/05/2023 9:56 AM EDT 53 mL/hr Rate Verify 10/05/2023 6:37 AM EDT 53 mL/hr Rate Verify 10/04/2023 11:55 PM EDT 53 mL/hr Adult TPN central IV 1,050 mL, Intravenous, [id number], Starting on Mon10/05/23 at 1800, Until Mon10/06/23 at 1159, For 18 hours, Infuse using a 1.2 micron in-line filter Rate Verify 10/05/2023 6:37 PM EDT 58 mL/hr New Bag 10/05/2023 6:32 PM EDT 58 mL/hr Adult TPN central IV 1,050 mL, Intravenous, [id number], Starting on Mon10/06/23 at 1800, Until 10/07/23 at 0959, For 16 hours, Infuse using a 1.2 micron in-line filter Rate Change 10/07/2023 10:07 AM EDT 66 mL/hr Rate Change 10/07/2023 9:59 AM EDT 5 mL/hr Rate Verify 10/07/2023 6:16 AM EDT 66 mL/hr Adult TPN central IV 1,050 mL, Intravenous, [id number], Starting on 10/07/23 at 1800, Until 10/08/23 at 0959, For 16 hours, Infuse using a 1.2 micron in-line filter Rate Verify 10/08/2023 6:10 AM EDT 66 mL/hr Rate Verify 10/08/2023 12:00 AM EDT 66 mL/hr New Bag 10/07/2023 6:33 PM EDT 66 mL/hr Adult TPN central IV 1,050 mL, Intravenous, [id number], Starting on Mon10/08/23 at 1800, Until Mon10/09/23 at 0959, For 16 hours, Infuse using a 1.2 micron in-line filter Rate Verify 10/09/2023 5:30 AM EDT 66 mL/hr New Bag 10/08/2023 6:24 PM EDT 66 mL/hr Albuterol Sulfate (Proventil) (2.5 MG/3ML) 0.083% inhalation solution 2.5 mg 2.5 mg, Nebulizer, Q4H PRN Dyspnea, Starting on Mon10/01/23 at 2314, Until Mon10/10/23 at 1556 Given 10/01/2023 11:23 PM EDT 2.5 mg ALPRAZolam (xaNAX) tab 0.25 mg 0.25 mg, Oral, HS PRN Insomnia, Starting on 09/23/23 at 0258, Until Mon10/10/23 at 1556 busPIRone (Buspar) tab 5 mg 5 mg, Oral, TID(AM/NOON/HS), First dose on Mon10/04/23 at 2200, Until Discontinued Given 10/10/2023 5:38 AM EDT 5 mg Given 10/09/2023 9:58 PM EDT 5 mg Given 10/09/2023 12:04 PM EDT 5 mg vujomxrmcf-aacrctbexcdav-milgbhva 50-325-40 mg per tab (Fioricet) 1 Tablet 1 Tablet, Oral, Q6H PRN Headache, Starting on Mon09/21/23 at 0932, Until Mon10/10/23 at 1556, Maximum of 4 grams (4000 mg) oc acetaminophen per day Given 10/08/2023 9:15 AM EDT 1 Tablet Given 10/07/2023 12:12 PM EDT 1 Tablet Given 10/05/2023 12:50 PM EDT 1 Tablet Calcitriol (Rocaltrol) cap 0.25 mcg 0.25 mcg, Oral, MWF, First dose on Mon09/22/23 at 0900, Until Discontinued Given 10/09/2023 8:49 AM EDT 0.25 mcg Given 10/06/2023 9:31 AM EDT 0.25 mcg Given 10/04/2023 9:39 AM EDT 0.25 mcg cefepime in dextrose (Maxipime) ivpb 1 g 1 g, IV Piggyback, [id number], 10 doses, First dose on Mon10/01/23 at 1800, Last dose on Mon10/06/23 at 0600, Administer over 30 Minutes New Bag 10/06/2023 5:17 AM EDT 1 g 100 mL/hr Rate Verify 10/05/2023 6:37 PM EDT 2 g/hr 100 mL/hr New Bag 10/05/2023 6:31 PM EDT 1 g 100 mL/hr cefepime in dextrose premix ivpb 2 g 2 g, IV Piggyback, ONCE, 1 dose, On Mon10/01/23 at 0500, Administer over 30 Minutes New Bag 10/01/2023 5:16 AM EDT 2 g 100 mL/hr Cholestyramine Light (Prevalite) oral powder 4 g 4 g, Oral, [id number], First dose on Mon09/30/23 at 1000, Until Discontinued, Cholestyramine resin may bind other drugs when given concurrently. Patient should take other drugs at least one (1) hour before or 4-6 hours after cholystyramine to avoid impeding their absorption. Given 10/10/2023 9:41 AM EDT 4 g Given 10/09/2023 8:48 AM EDT 4 g Given 10/08/2023 9:15 AM EDT 4 g dextrose 50% inj 25 mL 25 mL, IV Push, PRN Hypoglycemia, Other, For blood glucose 54 - 69 mg/dL or 70 - 100 mg/dL with symptoms AND patient is unresponsive, NPO, OR unable to swallow, Starting on Mon10/02/23 at 1212, Until Mon10/10/23 at 1556, Administer IV. Recheck blood glucose after 15 minutes. Notify provider. Given 10/02/2023 8:28 PM EDT 25 mL Given 10/02/2023 6:38 PM EDT 25 mL dextrose 50% inj 50 mL 50 mL, IV Push, PRN Hypoglycemia, Other, For blood glucose below 54 mg/dL AND patient unresponsive, NPO, OR unable to swallow, Starting on Mon10/02/23 at 1212, Until Mon10/10/23 at 1556, Administer IV. Recheck blood glucose in 15 minutes. Notify provider. Given 10/02/2023 5:24 PM EDT 50 mL dextrose 50% inj 50 mL 50 mL, IV Push, ONCE, On Mon10/10/23 at 0800, For 1 dose Given 10/10/2023 8:20 AM EDT 50 mL diphenoxylate-atropine 2.5-0.025 mg per tab (Lomotil) 2 Tablet 2 Tablet, Oral, Q6H PRN Diarrhea, Starting on Mon09/26/23 at 1445, Until Mon10/10/23 at 1556 Given 10/10/2023 6:33 AM EDT 2 Tablets Given 10/08/2023 9:37 PM EDT 2 Tablets Given 10/01/2023 4:27 PM EDT 2 Tablets Docusate Sodium (Colace) cap 100 mg 100 mg, Oral, BID PRN Constipation, Starting on Mon09/23/23 at 1753, Until Mon10/10/23 at 1556, For oral administration ONLY, if route of administration is other than oral and alternative product must be ordered. Given 09/23/2023 6:38 PM EDT 100 mg droPERidol (Inapsine) inj 2.5 mg 2.5 mg, IV Push, ONCE, On Mon10/05/23 at 0915, For 1 dose Given 10/05/2023 10:01 AM EDT 2.5 mg droPERidol (Inapsine) inj 2.5 mg 2.5 mg, IV Push, ONCE, On Mon10/05/23 at 1515, For 1 dose Given 10/05/2023 2:58 PM EDT 2.5 mg DULoxetine (Cymbalta) DR cap 120 mg 120 mg, Oral, Daily(AM), First dose on Mon09/21/23 at 0900, Until Discontinued Given 10/10/2023 8:38 AM EDT 120 mg Given 10/09/2023 8:49 AM EDT 120 mg Given 10/08/2023 9:15 AM EDT 120 mg Ergocalciferol (Vitamin D2(Drisdol)) cap 50,000 Units 50,000 Units, Oral, EVERY OTHER DAY, First dose on Mon09/21/23 at 0800, Until Discontinued Given 10/09/2023 8:49 AM EDT 50,000 Units Given 10/07/2023 8:45 AM EDT 50,000 Units Given 10/05/2023 8:09 AM EDT 50,000 Units Ferrous Sulfate (Feosol) tab 325 mg 325 mg, Oral, DAILY NOON, First dose on Mon09/25/23 at 1200, Until Discontinued, Component of Vitron C Given 10/10/2023 8:38 AM EDT 325 mg Given 10/09/2023 12:03 PM EDT 325 mg Given 10/08/2023 9:15 AM EDT 325 mg Furosemide (Lasix) inj 10 mg 10 mg, IV Push, Q12H (1000,2200), First dose on Mon10/03/23 at 1245, Last dose on Mon10/04/23 at 2200, For 4 doses Given 10/04/2023 9:26 PM EDT 10 mg Given 10/04/2023 9:40 AM EDT 10 mg Given 10/03/2023 10:20 PM EDT 10 mg Furosemide (Lasix) inj 20 mg 20 mg, IV Push, ONCE, On Mon10/02/23 at 0730, For 1 dose Given 10/02/2023 8:30 AM EDT 20 mg Furosemide (Lasix) inj 20 mg 20 mg, IV Push, ONCE, On Mon10/02/23 at 1900, For 1 dose Given 10/02/2023 6:38 PM EDT 20 mg Furosemide (Lasix) inj 40 mg 40 mg, IV Push, ONCE, On Mon10/10/23 at 0800, For 1 dose, avoid in patients with end-stage renal disease Given 10/10/2023 8:28 AM EDT 40 mg gadobutrol (Gadavist) inj 4.3 mL 4.3 mL (rounded from 4.31 mL = 0.1 mL/kg 43.1 kg), Intravenous, ONCE, On Mon10/02/23 at 1715, For 1 dose, Radiology Medication Routing (Non-IR) Given 10/02/2023 4:40 PM EDT 4.3 mL glucagon (Glucagen) inj 1 mg 1 mg, Intramuscular, PRN Hypoglycemia, Other, If patient is unresponsive, or NPO and has no IV access, Starting on Mon10/02/23 at 1212, Until Mon10/10/23 at 1556, NPO and no IV access with either 1) blood glucose less than 100 mg/dL and symptomatic OR 2) blood glucose less than 70 mg/dL and asymptomatic Glucose (Glutose 15) 40 % gel 15 g of glucose 15 g of glucose, Oral, PRN Hypoglycemia (low sugar), Other, For blood glucose 54 - 69 mg/dL or 70 - 100 mg/dL with symptoms AND patient alert WITH difficulty chewing/swallowing, Starting on Mon10/02/23 at 1212, Until Mon10/10/23 at 1556, Administer gel. Recheck blood glucose after 15 minutes. Notify provider. 37.5 gram tube = 15 grams glucose = 1 each Glucose (Glutose 15) 40 % gel 30 g of glucose 30 g of glucose, Oral, PRN Hypoglycemia (low sugar), Other, For blood glucose below 54 mg/dL AND patient alert WITH difficulty chewing/swallowing, Starting on Mon10/02/23 at 1212, Until Mon10/10/23 at 1556, Administer gel. Recheck blood glucose after 15 minutes. Notify provider. 37.5 gram tube = 15 grams glucose = 1 each glucose chew tab 16 g 16 g, Oral, PRN Hypoglycemia, Other, For blood glucose 54 - 69 mg/dL or 70 - 100 mg/dL with symptoms and patient alert without difficulty chewing/swallowing., Starting on Mon10/02/23 at 1212, Until Mon10/10/23 at 1556 hydrOXYzine (Atarax) tab 10 mg 10 mg, Oral, ONCE, On Mon10/02/23 at 0130, For 1 dose Given 10/02/2023 1:21 AM EDT 10 mg hydrOXYzine (Atarax) tab 10 mg 10 mg, Oral, TID PRN Anxiety, Starting on Mon10/04/23 at 1813, Until Mon10/10/23 at 1556 Given 10/07/2023 8:53 AM EDT 1 0 mg Given 10/05/2023 8:08 AM EDT 10 mg Given 10/04/2023 6:37 PM EDT 10 mg insulin aspart (NovoLOG) inj 20 Units 20 Units, Subcutaneous, ONCE, 1 dose, On Mon10/02/23 at 1245 Given 10/02/2023 12:45 PM EDT 20 Units Arm Left Upper insulin aspart (NovoLOG) inj 4 Units 4 Units (rounded from 4.15 Units = 0.1 Units/kg 41.5 kg), Intravenous, ONCE, 1 dose, On Mon10/10/23 at 0800 Given 10/10/2023 8:20 AM EDT 4 Units insulin aspart (NovoLOG) inj Subcutaneous, W/MEALS AND HS, First dose (after last modification) on Mon10/03/23 at 1200, Until Discontinued, HIGH DOSE (Moderately Insulin Resistance): Sliding Scale Correctional insulin may be given if the patient is NPO. Dose based on standard build from Insulin Calculator. Do not modify insulin doses in administration instructions! , Glucose less than 70 instructions: Obtain STAT lab blood glucose and call covering provider., Glucose 80-150 (units): 0, Glucose 151-200 (units): 3, Glucose 201-250 (units): 6, Glucose 251-300 (units): 9, Glucose greater than 300 (units): 12, Glucose greater than 300 instructions: Give suggested insulin dose and call covering provider. Given 10/08/2023 5:41 PM EDT 6 Units Arm Left Upper Given 10/07/2023 5:28 PM EDT 3 Units Ar m Left Upper Given 10/06/2023 12:28 PM EDT 3 Units A rm Right Upper Iron Sucrose (Venofer) 200 mg in NSS 100 mL ivpb 200 mg, IV Piggyback, ONCE, 1 dose, On Mon10/04/23 at 1545, Administer over 60 Minutes New Bag 10/04/2023 5:21 PM EDT 200 mg 110 mL/hr isolyte-S pH 7.4 infusion Intravenous, at 500 mL/hr, Plasma-LYTE 148, isolyte-S, and isolyte-S pH 7.4 are considered equivalent - including for MAR barcode scanning., CONTINUOUS, Starting on Mon09/27/23 at 1530, Until Mon09/27/23 at 1629 Rate Verify 09/27/2023 4:29 PM EDT 500 mL /hr New Bag 09/27/2023 3:16 PM EDT 500 mL/hr isolyte-S pH 7.4 infusion Intravenous, at 250 mL/hr, Plasma-LYTE 148, isolyte-S, and isolyte-S pH 7.4 are considered equivalent - including for MAR barcode scanning., CONTINUOUS, Starting on 09/30/23 at 1015, Until 09/30/23 at 1414 Rate Verify 09/30/2023 1:23 PM EDT 250 mL /hr New Bag 09/30/2023 10:47 AM EDT 250 mL/hr Lidocaine (Aspercreme) 4 % patch 1 Patch 1 Patch, Transdermal, [id number], First dose on Mon09/20/23 at 1800, Until Discontinued, Apply patch for 12 hours then remove for 12 hours! Remove any Lidocaine patches the patient may currently be wearing prior to applying the new patch Patch Applied 10/09/2023 5:12 PM EDT 1 Patch Back Middle Patch Applied 10/08/2023 5:36 PM EDT 1 Patch Shoulder Right Patch Applied 10/07/2023 5:28 PM EDT 1 Patch Shoulder Right LORAzepam (Ativan) tab 0.5 mg 0.5 mg, Oral, ONCE, On Mon10/02/23 at 1545, For 1 dose Given 10/02/2023 3:33 PM EDT 0.5 mg magnesium sulfate 1 g in d5w 100mL LOCKED DOSE 1 g, IV Piggyback, Q1H, 2 doses, First dose on Mon10/04/23 at 1100, Last dose on Mon10/04/23 at 1200, Administer over 60 Minutes, Total dose is 2g New Bag 10/04/2023 12:33 PM EDT 1 g 100 mL/hr magnesium sulfate 1 g in d5w 100mL LOCKED DOSE 1 g, IV Piggyback, Q1H, 1 dose, First dose (after last reorder) on Mon10/04/23 at 1400, Administer over 60 Minutes, Total dose is 2g New Bag 10/04/2023 2:08 PM EDT 1 g 100 mL/hr magnesium sulfate 1 g in d5w 100mL LOCKED DOSE 1 g, IV Piggyback, Q1H, 2 doses, First dose on Mon10/06/23 at 1400, Last dose on Mon10/06/23 at 1500, Administer over 60 Minutes, Total dose is 2g New Bag 10/06/2023 4:25 PM EDT 1 g 100 mL/hr New Bag 10/06/2023 2:55 PM EDT 1 g 100 mL/hr magnesium sulfate 1 g in d5w 100mL LOCKED DOSE 1 g, IV Piggyback, Q1H, 2 doses, First dose on Mon10/10/23 at 0800, Last dose on Mon10/10/23 at 0900, Administer over 60 Minutes, Total dose is 2g New Bag 10/10/2023 9:42 AM EDT 1 g 100 mL/hr New Bag 10/10/2023 8:36 AM EDT 1 g 100 mL/hr mirtazapine ODT (Remeron Soltab) tab 45 mg 45 mg, Oral, QHS, First dose on Mon09/20/23 at 2200, Until Discontinued Given 10/09/2023 9:58 PM EDT 45 mg Given 10/08/2023 9:27 PM EDT 45 mg Given 10/07/2023 10:00 PM EDT 45 mg morphine sulfate inj 2 mg 2 mg, IV Push, Q3H PRN Pain, Severe, Starting on Mon09/21/23 at 1112, Until Mon09/26/23 at 0958 Given 09/26/2023 7:28 AM EDT 2 mg Given 09/26/2023 2:23 AM EDT 2 mg Given 09/25/2023 9:50 PM EDT 2 mg Nicotine (Nicoderm CQ) 21 MG/24HR patch 1 Patch 1 Patch, Transdermal, [id number], First dose (after last modification) on Mon09/20/23 at 1800, Until Discontinued, Place on clean, hairless area. Remove for patient showers. Change every 24 hours WASTE INFO: Return packaging and waste medication in zip lock bag to pharmacy - [facility] container. Patch Applied 10/09/2023 5:14 PM EDT 1 Patch Arm Left Upper Patch Applied 10/08/2023 5:36 PM EDT 1 Patch Arm Right Upper Patch Applied 10/07/2023 5:28 PM EDT 1 Patch Arm Left Upper OLANZapine ODT (zyPREXA zyDIS) tab 5 mg 5 mg, On Tongue, Daily(AM), First dose on Mon09/21/23 at 0900, Until Discontinued, Orally disintegrating tabs, place on top of tongue Given 10/10/2023 8:38 AM EDT 5 mg Given 10/09/2023 8:56 AM EDT 5 mg Given 10/08/2023 9:15 AM EDT 5 mg omeprazole (PriLOSEC) cap 20 mg 20 mg, Oral, Daily(AM), First dose on Mon09/21/23 at 0900, Until Discontinued, This med should NOT be Crushed or Chewed Given 10/10/2023 8:38 AM EDT 20 mg Given 10/09/2023 8:49 AM EDT 20 mg Given 10/08/2023 9:15 AM EDT 20 mg ondansetron ODT (Zofran) tab 4 mg 4 mg, On Tongue, Q8H PRN Nausea, Starting on Mon09/20/23 at 1407, Until Mon10/10/23 at 1556 Given 10/05/2023 8: 30 PM EDT 4 mg Given 10/04/2023 5:16 PM EDT 4 mg Given 09/27/2023 1:22 PM EDT 4 mg oxyCODONE (Oxy IR) tab 5 mg 5 mg, Oral, Q8H PRN Pain, Breakthrough, Pain, Severe, Starting on Mon09/28/23 at 1126, Until Mon09/29/23 at 1900 Given 09/29/2023 2:21 PM EDT 5 mg Given 09/29/2023 4:23 AM EDT 5 mg Given 09/28/2023 7:41 PM EDT 5 mg oxyCODONE (Oxy IR) tab 5 mg 5 mg, Oral, Q6H PRN Pain, Breakthrough, Pain, Severe, Starting on Mon09/29/23 at 1915, Until Mon10/10/23 at 1556 Given 10/09/2023 5:19 AM EDT 5 mg Given 10/08/2023 7:27 PM EDT 5 mg Given 10/08/2023 12:46 PM EDT 5 mg oxygen GAS Inhalation, OXYGEN, First dose on Mon10/02/23 at 0015, Until Discontinued, Device/Managed by: NIV or Ventilator Device, Goal SPO2 (%): 91-95, Notify Provider: For sudden DECREASE in resting SPO2 to less than 85% and when escalating delivery device., Initial FiO2 (%): 40, Titration Interval: Q2 minutes and as needed., Wean patient off Oxygen when the oxygen saturation is greater than or equal to 93% Oxygen On 10/09/2023 12:00 AM EDT Oxygen On 10/08/2023 4:00 PM EDT Oxygen On 10/08/2023 8:00 AM EDT potassium CHLORide liquid 40 mEq 40 mEq, Oral, ONCE, On Mon10/03/23 at 0845, For 1 dose, To avoid GI irritation, must further diilute 15 ml in 3 ounces H2O or other fluid Given 10/03/2023 8:22 AM EDT 40 mEq Pregabalin (Lyrica) cap 25 mg 25 mg, Oral, BID (.AM/PM), First dose on Mon09/20/23 at 2100, Until Discontinued Given 10/10/2023 8:38 AM EDT 25 mg Given 10/09/2023 9:58 PM EDT 25 mg Given 10/09/2023 8:50 AM EDT 25 mg promethazine (Phenergan) tab 25 mg 25 mg, Oral, Q4H PRN Vomiting, Starting on Mon09/23/23 at 0954, Until Mon10/10/23 at 1556 Given 10/01/2023 4:30 PM EDT 2 5 mg Given 09/27/2023 9:44 PM EDT 25 mg Given 09/23/2023 6:00 PM EDT 25 mg QUEtiapine (SEROquel) tab 50 mg 50 mg, Oral, QHS PRN Sleep, Anxiety, Starting on Mon09/20/23 at 2107, Until Mon10/10/23 at 1556 Given 10/08/2023 10:49 PM EDT 50 mg Given 10/08/2023 12:09 AM EDT 50 mg Given 10/07/2023 12:26 AM EDT 50 mg Simethicone (Mylicon) chew tab 80 mg 80 mg, Oral, Q6H PRN Indigestion, Gas, Starting on Mon09/27/23 at 1222, Until Mon10/10/23 at 1556, Tablets need to be chewed before swallowing! Given 09/30/2023 4:30 AM EDT 80 mg Given 09/27/2023 12:32 PM EDT 80 mg sodium bicarbonate 8.4 % inj 50 mEq 50 mEq, IV Push, ONCE, On 09/30/23 at 1615, For 1 dose Given 09/30/2023 4:05 PM EDT 50 mEq sodium bicarbonate tab 1,300 mg 1,300 mg, Oral, BID (.AM/PM), First dose (after last modification) on Mon09/30/23 at 2100, Until Discontinued Given 10/10/2023 8:38 AM EDT 1,300 mg Given 10/09/2023 9:58 PM EDT 1,300 mg Given 10/09/2023 8:50 AM EDT 1,300 mg sodium bicarbonate tab 1,950 mg 1,950 mg, Oral, Daily(AM), First dose on Mon09/29/23 at 1415, Until Discontinued Given 09/30/2023 8:44 AM EDT 1,950 mg Given 09/29/2023 2:20 PM EDT 1,950 mg sodium chloride 0.9 % flush central line 10 mL 10 mL, IV Push, Q8H, First dose on Mon09/20/23 at 1500, Until Discontinued, Capped Central Line Ports Given 10/09/2023 6:00 AM EDT 10 mL Given 10/08/2023 10:00 PM EDT 10 mL Given 10/08/2023 2:00 PM EDT 10 mL sodium chloride 0.9 % flush/inj 10 mL 10 mL, IV Push, ONCE, On Mon10/02/23 at 1715, For 1 dose, Do not flush if lock, PICC, or central line not in place; IV infusing or unable to flush., Radiology Medication Routing (Non-IR) Given 10/02/2023 5:15 PM EDT 10 mL Sodium Zirconium Cyclosilicate (Lokelma) oral powder PACK 10 g 10 g, Oral, ONCE, On Mon10/10/23 at 0800, For 1 dose, Empty entire contents of the packet(s) into a glass with 45 mL of water. Stir well and drink immediately; if powder remains in the glass, add water, stir and drink immediately; repeat until no powder remains. Administer other oral medications at least 2 hours before or 2 hours after dose. Hold dose and notify provider if K is less than 3.5 mmol/L Given 10/10/2023 8:37 AM EDT 10 g SUMAtriptan (Imitrex) tab 50 mg 50 mg, Oral, Q2H PRN Headache, Starting on Mon09/21/23 at 0950, Until Mon09/23/23 at 0256, Max 200 mg per Day Given 09/21/2023 9:14 PM EDT 50 mg Given 09/21/2023 3:32 PM EDT 50 mg Given 09/21/2023 11:30 AM EDT 50 mg SUMAtriptan (Imitrex) tab 50 mg 50 mg, Oral, Q2H PRN Migraine headache, Starting on Mon09/23/23 at 0256, Until Mon10/10/23 at 1556, Max 200 mg per Day Given 10/09/2023 8:55 PM EDT 50 mg Given 10/09/2023 12:07 PM EDT 50 mg Given 10/08/2023 8:46 PM EDT 50 mg tiZANidine (Zanaflex) tab 1 mg 1 mg, Oral, ONCE, On Mon10/03/23 at 1245, For 1 dose Given 10/03/2023 12:24 PM EDT 1 mg traMADol (Ultram) tab 50 mg 50 mg, Oral, Q6H PRN Pain, Moderate, Pain, Severe, Starting on Mon09/26/23 at 0957, Until Mon10/03/23 at 0943 Given 10/03/2023 9:39 AM EDT 50 mg Given 10/03/2023 2:54 AM EDT 50 mg Given 10/01/2023 11:43 PM EDT 50 mg traMADol (Ultram) tab 50 mg 50 mg, Oral, Q12H PRN Pain, Moderate, Pain, Severe, Starting on Mon10/03/23 at 2100, Until Mon10/10/23 at 1556 Given 10/09/2023 3:47 PM EDT 50 mg Given 10/08/2023 10:49 PM EDT 50 mg Given 10/08/2023 9:15 AM EDT 50 mg vitamin b-12 (Cyanocobalamin) inj 1,000 mcg 1,000 mcg, Intramuscular, ONCE, On Mon09/25/23 at 1145, For 1 dose Given 09/25/2023 11:31 AM EDT 1,000 mcg Arm Left Upper vitamin b-12 (Cyanocobalamin) inj 1,000 mcg 1,000 mcg, Intramuscular, ONCE, On Mon10/02/23 at 1500, For 1 dose Given 10/02/2023 3:36 PM EDT 1,000 mcg Deltoid Left Upper vitamin b-12 (Cyanocobalamin) inj 1,000 mcg 1,000 mcg, Intramuscular, ONCE, On Mon10/09/23 at 1330, For 1 dose Given 10/09/2023 2:10 PM EDT 1,000 mcg Thigh Left Vitamin C (Ascorbic Acid) tab 250 mg 250 mg, Oral, DAILY NOON, First dose on Mon09/25/23 at 1200, Until Discontinued, Component of Vitron C Given 10/10/2023 8:38 AM EDT 250 mg Given 10/09/2023 12:04 PM EDT 250 mg Given 10/08/2023 12:00 PM EDT 250 mg Vitamin E (Aquasol E) cap 400 Units 400 Units, Oral, Daily(AM), First dose on Mon09/29/23 at 1130, Until Discontinued Given 10/10/2023 9:41 AM EDT 400 U nits Given 10/09/2023 8:56 AM EDT 400 Units Given 10/08/2023 9:15 AM EDT 400 Units documented in this encounter Active and Recently Administered Medications Times are shown in EDT. Scheduled Medication Order 10/08/2023 10/09/2023 10/10/2023 busPIRone (Buspar) tab 5 mg 5 mg, Oral, TID(AM/NOON/HS), First dose on Mon10/04/23 at 2200, Until Discontinued 0602 (Given - Provider: Kristina Green RN)1241 (Given - Provider: Aye Charles RN)2127 (Given - Provider: Jai Zapien LPN) 0511 (Given - Provider: Jai Zapien LPN)1204 (Given - Provider: Stacy Dawson RN)2158 (Given - Provider: Lisa Ba RN) 0538 (Given - Provider: Evelyn Figueredo RN) Calcitriol (Rocaltrol) cap 0.25 mcg 0.25 mcg, Oral, MWF, First dose on Mon09/22/23 at 0900, Until Discontinued 0849 (Given - Provider: Stacy Dawson, MELI) Cholestyramine Light (Prevalite) oral powder 4 g 4 g, Oral, [id number], First dose on Mon09/30/23 at 1000, Until Discontinued, Cholestyramine resin may bind other drugs when given concurrently. Patient should take other drugs at least one (1) hour before or 4-6 hours after cholystyramine to avoid impeding their absorption. 0915 (Given - Provider: Aye Charles RN) 0848 (Given - Provider: Stacy Dawson RN) 0941 (Given - Provider: Kimberli Shrestha, MELI) dextrose 50% inj 50 mL (COMPLETED) 50 mL, IV Push, ONCE, On Mon10/10/23 at 0800, For 1 dose 0820 (Given - Provider: Kimberli Shrestha RN) DULoxetine (Cymbalta) DR cap 120 mg 120 mg, Oral, Daily(AM), First dose on Mon09/21/23 at 0900, Until Discontinued 0915 (Given - Provider: Aye Charles RN) 0849 (Given - Provider: Stacy Dawson RN) 0838 (Given - Provider: Kimberli Shrestha RN) Ergocalciferol (Vitamin D2(Drisdol)) cap 50,000 Units 50,000 Units, Oral, EVERY OTHER DAY, First dose on Mon09/21/23 at 0800, Until Discontinued 0849 (Given - Provider: Stacy Dawson RN) Ferrous Sulfate (Feosol) tab 325 mg 325 mg, Oral, DAILY NOON, First dose on Mon09/25/23 at 1200, Until Discontinued, Component of Vitron C 0915 (Given - Provider: Aye Charles RN) 1203 (Given - Provider: Stacy Dawson RN) 0838 (Given - Provider: Kimberli Shrestha RN) Furosemide (Lasix) inj 40 mg (COMPLETED) 40 mg, IV Push, ONCE, On Mon10/10/23 at 0800, For 1 dose, avoid in patients with end-stage renal disease 0828 (Given - Provider: Kimberli Shrestha RN) insulin aspart (NovoLOG) inj 4 Units (COMPLETED) 4 Units (rounded from 4.15 Units = 0.1 Units/kg 41.5 kg), Intravenous, ONCE, 1 dose, On Mon10/10/23 at 0800 0820 (Given - Provider: Kimberli Shrestha RN - Comment: part of correction for K) insulin aspart (NovoLOG) inj Subcutaneous, W/MEALS AND HS, First dose (after last modification) on Mon10/03/23 at 1200, Until Discontinued, HIGH DOSE (Moderately Insulin Resistance): Sliding Scale Correctional insulin may be given if the patient is NPO. Dose based on standard build from Insulin Calculator. Do not modify insulin doses in administration instructions! , Glucose less than 70 instructions: Obtain STAT lab blood glucose and call covering provider., Glucose 80-150 (units): 0, Glucose 151-200 (units): 3, Glucose 201-250 (units): 6, Glucose 251-300 (units): 9, Glucose greater than 300 (units): 12, Glucose greater than 300 instructions: Give suggested insulin dose and call covering provider. 0800 (No Insulin - Provider: Aye Charles RN - Reason: Clinician Judgement-Notify Provider - Comment: BSBS recieved following breakfast)1200 (No Insulin - Provider: Aye Charles RN - Reason: Parameter(s) Not Met)1741 (Given - Provider: Andreea Silva RN)2200 (No Insulin - Provider: Jai Zapien LPN - Reason: Parameter(s) Not Met) 0800 (No Insulin - Provider: Stacy Dawson RN - Reason: Parameter(s) Not Met)1200 (Not Given - Provider: Stacy Dawson RN - Reason: Parameter(s) Not Met)1700 (Not Given - Provider: Kimberli Shrestha RN - Reason: Parameter(s) Not Met)2200 (No Insulin - Provider: Lisa Ba RN - Reason: Parameter(s) Not Met) 0800 (Not Given - Provider: Kimberli Shrestha RN - Reason: Parameter(s) Not Met) Lidocaine (Aspercreme) 4 % patch 1 Patch 1 Patch, Transdermal, [id number], First dose on Mon09/20/23 at 1800, Until Discontinued, Apply patch for 12 hours then remove for 12 hours! Remove any Lidocaine patches the patient may currently be wearing prior to applying the new patch 0528 (Patch Removed - Provider: Kristina Green RN)1736 (Patch Applied - Provider: Andreea Silva RN) 0536 (Patch Removed - Provider: Jai Zapien LPN)1712 (Patch Applied - Provider: Kimberli Shrestha, MELI) 0512 (Patch Removed - Provider: Evelyn Figueredo RN) magnesium sulfate 1 g in d5w 100mL LOCKED DOSE (COMPLETED) 1 g, IV Piggyback, Q1H, 2 doses, First dose on Mon10/10/23 at 0800, Last dose on Mon10/10/23 at 0900, Administer over 60 Minutes, Total dose is 2g 0836 (New Bag - Provider: Kimberli Shrestha RN)0936 (Stopped - Provider: Kimberli Shrestha RN)0942 (New Bag - Provider: Kimberli Shrestha, MELI)1042 (Stopped - Provider: Kimberli Shrestha RN) mirtazapine ODT (Remeron Soltab) tab 45 mg 45 mg, Oral, QHS, First dose on Mon09/20/23 at 2200, Until Discontinued 2126 (Given - Provider: Jai Zapien LPN) 2157 (Given - Provider: Lisa Ba RN) Nicotine (Nicoderm CQ) 21 MG/24HR patch 1 Patch 1 Patch, Transdermal, [id number], First dose (after last modification) on Mon09/20/23 at 1800, Until Discontinued, Place on clean, hairless area. Remove for patient showers. Change every 24 hours WASTE INFO: Return packaging and waste medication in zip lock bag to pharmacy - [facility] container. 1728 (Patch Removed - Provider: Andreea Silva RN)1736 (Patch Applied - Provider: Andreea Silva RN) 1714 (Patch Applied - Provider: Kimberli Shrestha, MELI)1736 (Patch Removed - Provider: Kimberli Shrestha RN) 1156 (Due: Patch Removed - Provider: Discharge, Physician - Comment: Time automatically adjusted from order being discontinued) OLANZapine ODT (zyPREXA zyDIS) tab 5 mg 5 mg, On Tongue, Daily(AM), First dose on Mon09/21/23 at 0900, Until Discontinued, Orally disintegrating tabs, place on top of tongue 0915 (Given - Provider: Aye Charles RN) 0856 (Given - Provider: Stacy Dawson RN) 0838 (Given - Provider: Kimberli Shrestha, MELI) omeprazole (PriLOSEC) cap 20 mg 20 mg, Oral, Daily(AM), First dose on Mon09/21/23 at 0900, Until Discontinued, This med should NOT be Crushed or Chewed 0915 (Given - Provider: Aye Charles RN) 0849 (Given - Provider: Stacy Dawson RN) 0838 (Given - Provider: Kimberli Shrestha RN) oxygen GAS(Linked Group 1) Inhalation, OXYGEN, First dose on Mon10/02/23 at 0015, Until Discontinued, Device/Managed by: NIV or Ventilator Device, Goal SPO2 (%): 91-95, Notify Provider: For sudden DECREASE in resting SPO2 to less than 85% and when escalating delivery device., Initial FiO2 (%): 40, Titration Interval: Q2 minutes and as needed., Wean patient off Oxygen when the oxygen saturation is greater than or equal to 93% 0000 (Oxygen On - Provider: Kristina Green RN)0800 (Oxygen On - Provider: Aye Charles RN)1600 (Oxygen On - Provider: Andreea Silva RN) 0000 (Oxygen On - Provider: Jai Zapien LPN)0800 (Oxygen Off - Provider: Stacy Dawson RN)1600 (Oxygen Off - Provider: Kimberli Shrestha RN) 0000 (Oxygen Off - Provider: Evelyn Figueredo RN)0800 (Oxygen Off - Provider: Kimberli Shrestha RN) Pregabalin (Lyrica) cap 25 mg 25 mg, Oral, BID (.AM/PM), First dose on Mon09/20/23 at 2100, Until Discontinued 0915 (Given - Provider: Aye Charles RN)8 (Given - Provider: Jai Zapien LPN) 0850 (Given - Provider: Stacy Dawson RN)2158 (Given - Provider: Lisa Ba RN) 0838 (Given - Provider: Kimberli Shrestha RN) sodium bicarbonate tab 1,300 mg 1,300 mg, Oral, BID (.AM/PM), First dose (after last modification) on Mon09/30/23 at 2100, Until Discontinued 0915 (Given - Provider: Aye Charles RN)2127 (Given - Provider: Jai Zapien LPN) 0850 (Given - Provider: Stacy Dawson RN)2158 (Given - Provider: Lisa Ba RN) 0838 (Given - Provider: Kimberli Shrestha, MELI) sodium chloride 0.9 % flush central line 10 mL (CANCELED) 10 mL, IV Push, Q8H, First dose on Mon09/20/23 at 1500, Until Discontinued, Capped Central Line Ports 0600 (Given - Provider: Kristina Green RN)1400 (Given - Provider: Aye Charles RN)2200 (Given - Provider: Jai Zapien LPN) 0600 (Given - Provider: Jai Zapien LPN) Sodium Zirconium Cyclosilicate (Lokelma) oral powder PACK 10 g (COMPLETED) 10 g, Oral, ONCE, On Mon10/10/23 at 0800, For 1 dose, Empty entire contents of the packet(s) into a glass with 45 mL of water. Stir well and drink immediately; if powder remains in the glass, add water, stir and drink immediately; repeat until no powder remains. Administer other oral medications at least 2 hours before or 2 hours after dose. Hold dose and notify provider if K is less than 3.5 mmol/L 0837 (Given - Provider: Kimberli Shrestha RN) vitamin b-12 (Cyanocobalamin) inj 1,000 mcg (COMPLETED) 1,000 mcg, Intramuscular, ONCE, On Mon10/09/23 at 1330, For 1 dose 1410 (Given - Provider: Stacy Dawson, MELI) Vitamin C (Ascorbic Acid) tab 250 mg 250 mg, Oral, DAILY NOON, First dose on Mon09/25/23 at 1200, Until Discontinued, Component of Vitron C 1200 (Given - Provider: Aye Charles RN) 1204 (Given - Provider: Stayc Dawson, MELI) 0838 (Given - Provider: Kimberli Shrestha, MELI) Vitamin E (Aquasol E) cap 400 Units 400 Units, Oral, Daily(AM), First dose on Mon09/29/23 at 1130, Until Discontinued 0915 (Given - Provider: Aye Charles RN) 0856 (Given - Provider: Stacy Dawson, MELI) 0941 (Given - Provider: Kimberli Shrestha RN) Continuous Medication Order 10/08/2023 10/09/2023 10/10/2023 Adult TPN central IV () 1,050 mL, Intravenous, [id number], Starting on 10/07/23 at 1800, Until 10/08/23 at 0959, For 16 hours, Infuse using a 1.2 micron in-line filter 0000 (Rate Verify - Provider: Kristina Green RN)0610 (Rate Verify - Provider: Kristina Green RN)0941 (Stopped - Provider: Aye Charles RN) Adult TPN central IV () 1,050 mL, Intravenous, [id number], Starting on 10/08/23 at 1800, Until 10/09/23 at 0959, For 16 hours, Infuse using a 1.2 micron in-line filter 1824 (New Bag - Provider: Andreea Silva RN) 0530 (Rate Verify - Provider: Jai Zapien LPN) PRN Medication Order 10/08/2023 10/09/2023 10/10/2023 Acetaminophen (Tylenol) tab 650 mg 650 mg, Oral, Q6H PRN Headache, Pain, Mild, Fever >38C(100.5F), Pain, Starting on Neel[place] 10/05/23 at 1229, Until Mon10/10/23 at 1556, Maximum of 4 grams (4000 mg) per day. 1927 (Given - Provider: Lisa Ba RN) 0538 (Given - Provider: Evelyn Figueredo RN) Albuterol Sulfate (Proventil) (2.5 MG/3ML) 0.083% inhalation solution 2.5 mg 2.5 mg, Nebulizer, Q4H PRN Dyspnea, Starting on 10/01/23 at 2314, Until Mon10/10/23 at 1556 ALPRAZolam (xaNAX) tab 0.25 mg 0.25 mg, Oral, HS PRN Insomnia, Starting on 09/23/23 at 0258, Until Tue /16/24 at 1556 butalbital-acetaminophen- caffeine 50-325-40 mg per tab (Fioricet) 1 Tablet 1 Tablet, Oral, Q6H PRN Headache, Starting on [place]elima 09/21/23 at 0932, Until Mon10/10/23 at 1556, Maximum of 4 grams (4000 mg) oc acetaminophen per day 0915 (Given - Provider: Aye Charles RN) dextrose 50% inj 25 mL 25 mL, IV Push, PRN Hypoglycemia, Other, For blood glucose 54 - 69 mg/dL or 70 - 100 mg/dL with symptoms AND patient is unresponsive, NPO, OR unable to swallow, Starting on Mon10/02/23 at 1212, Until Mon10/10/23 at 1556, Administer IV. Recheck blood glucose after 15 minutes. Notify provider. dextrose 50% inj 50 mL 50 mL, IV Push, PRN Hypoglycemia, Other, For blood glucose below 54 mg/dL AND patient unresponsive, NPO, OR unable to swallow, Starting on Mon10/02/23 at 1212, Until Mon10/10/23 at 1556, Administer IV. Recheck blood glucose in 15 minutes. Notify provider. dicyclomine (Bentyl) cap 20 mg 20 mg, Oral, QID PRN Other, abd pain, Starting on Mon09/20/23 at 1408, Until Mon10/10/23 at 1556 diphenoxylate-atropine 2.5-0.025 mg per tab (Lomotil) 2 Tablet 2 Tablet, Oral, Q6H PRN Diarrhea, Starting on Mon09/26/23 at 1445, Until Mon10/10/23 at 1556 2137 (Given - Provider: Jai Zapien LPN) 0633 (Given - Provider: Evelyn Figueredo RN) Docusate Sodium (Colace) cap 100 mg 100 mg, Oral, BID PRN Constipation, Starting on Mon09/23/23 at 1753, Until Mon10/10/23 at 1556, For oral administration ONLY, if route of administration is other than oral and alternative product must be ordered. glucagon (Glucagen) inj 1 mg 1 mg, Intramuscular, PRN Hypoglycemia, Other, If patient is unresponsive, or NPO and has no IV access, Starting on Mon10/02/23 at 1212, Until Mon10/10/23 at 1556, NPO and no IV access with either 1) blood glucose less than 100 mg/dL and symptomatic OR 2) blood glucose less than 70 mg/dL and asymptomatic Glucose (Glutose 15) 40 % gel 15 g of glucose 15 g of glucose, Oral, PRN Hypoglycemia (low sugar), Other, For blood glucose 54 - 69 mg/dL or 70 - 100 mg/dL with symptoms AND patient alert WITH difficulty chewing/swallowing, Starting on Mon10/02/23 at 1212, Until Mon10/10/23 at 1556, Administer gel. Recheck blood glucose after 15 minutes. Notify provider. 37.5 gram tube = 15 grams glucose = 1 each Glucose (Glutose 15) 40 % gel 30 g of glucose 30 g of glucose, Oral, PRN Hypoglycemia (low sugar), Other, For blood glucose below 54 mg/dL AND patient alert WITH difficulty chewing/swallowing, Starting on Mon10/02/23 at 1212, Until Mon10/10/23 at 1556, Administer gel. Recheck blood glucose after 15 minutes. Notify provider. 37.5 gram tube = 15 grams glucose = 1 each glucose chew tab 16 g 16 g, Oral, PRN Hypoglycemia, Other, For blood glucose 54 - 69 mg/dL or 70 - 100 mg/dL with symptoms and patient alert without difficulty chewing/swallowing., Starting on Mon10/02/23 at 1212, Until Mon10/10/23 at 1556 hydrOXYzine (Atarax) tab 10 mg 10 mg, Oral, TID PRN Anxiety, Starting on Mon10/04/23 at 1813, Until Mon10/10/23 at 1556 ondansetron ODT (Zofran) tab 4 mg 4 mg, On Tongue, Q8H PRN Nausea, Starting on Mon09/20/23 at 1407, Until Mon10/10/23 at 1556 oxyCODONE (Oxy IR) tab 5 mg 5 mg, Oral, Q6H PRN Pain, Breakthrough, Pain, Severe, Starting on Mon09/29/23 at 1915, Until Mon10/10/23 at 1556 0602 (Given - Provider: Kristina Green RN)1246 (Given - Provider: Aye Charles RN)1927 (Given - Provider: Jai Zapien LPN) 0519 (Given - Provider: Jai Zapien LPN) promethazine (Phenergan) tab 25 mg 25 mg, Oral, Q4H PRN Vomiting, Starting on Mon09/23/23 at 0954, Until Mon10/10/23 at 1556 QUEtiapine (SEROquel) tab 50 mg 50 mg, Oral, QHS PRN Sleep, Anxiety, Starting on Mon09/20/23 at 2107, Until Mon10/10/23 at 1556 0009 (Given - Provider: Kristina Green RN)2249 (Given - Provider: Jai Zapien LPN) Simethicone (Mylicon) chew tab 80 mg 80 mg, Oral, Q6H PRN Indigestion, Gas, Starting on Mon09/27/23 at 1222, Until Mon10/10/23 at 1556, Tablets need to be chewed before swallowing! SUMAtriptan (Imitrex) tab 50 mg 50 mg, Oral, Q2H PRN Migraine headache, Starting on Mon09/23/23 at 0256, Until Mon10/10/23 at 1556, Max 200 mg per Day 1246 (Given - Provider: Aye Charles RN)2046 (Given - Provider: Laurent Hutchinson RN) 1207 (Given - Provider: Stacy Dawson RN)2054 (Given - Provider: Lisa Ba RN) traMADol (Ultram) tab 50 mg 50 mg, Oral, Q12H PRN Pain, Moderate, Pain, Severe, Starting on Mon10/03/23 at 2100, Until Mon10/10/23 at 1556 0915 (Given - Provider: Aye Charles RN)224 (Given - Provider: Jai Zapien LPN) 1547 (Given - Provider: Kimberli Shrestha RN) Linked Groups Order Group 1: Ventilation Method: Acute Non-Invasive --- PEEP/EPAP/CPAP: 5 --- Changes Per Adult Protocol: Yes (CANCELED) CONTINUOUS, Starting on Mon10/01/23 at 2345, Until Specified Routine And oxygen GASJump to med Inhalation, OXYGEN, First dose on 10/02/23 at 0015, Until Discontinued, Device/Managed by: NIV or Ventilator Device, Goal SPO2 (%): 91-95, Notify Provider: For sudden DECREASE in resting SPO2 to less than 85% and when escalating delivery device., Initial FiO2 (%): 40, Titration Interval: Q2 minutes and as needed., Wean patient off Oxygen when the oxygen saturation is greater than or equal to 93% documented in this encounter Additional Health Concerns Infection Onset Date Last Indicated Resolved Time Respiratory Rule-Out 10/01/2023 10/01/2023 024 4:57 AM EDT COVID-19 Rule-Out 10/01/2023 10/01/2023 10/01/2023 4:57 AM EDT documented as of this encounter Advance Directives Documents on File Type Date Recorded Patient Sql Report Writer Expl anation POLST 01/03/2022 [place] OR [facility] FOR LIFE-SUSTAINING TREATMENT Latest Code Status [...] Other - (no specific identity) Health Care Sql Report Writer (appointed verbally by patient or by statute hierarchy) [place] Sibling Health Care Sql Report Writer (appointed verbally by patient or by statute hierarchy) Care Teams Process Consultant Relationship Specialty Start Date End Date Evelyn Andrews MD [address] [place] [address] [place] [address] PCP - General Family Medicine 05/04/18 documented as of this encounter
--- OUTSIDE RECORDS SUMMARY | 2023-12-07 18:33 | External Medical Summary ---
Author Name Unknown Address Unknown Organization : Laboratory Report Ordering Provider Test Date Status MARIELOS SALAS 10/10/2023 11:26:49 Final Observation Date Value Abnormality Reference (Units ) Status Glucose Point of Care 10/10/2023 11:26:49 146 Above high normal 70-120 (mg/dL) Final Performing Location
--- OUTSIDE RECORDS SUMMARY | 2023-12-07 18:33 | External Medical Summary ---
Author Name Unknown Address Unknown Organization : Laboratory Report Ordering Provider Test Date Status MARIELOS SALAS 10/09/2023 22:10:14 Final Observation Date Value Abnormality Reference (Units ) Status Glucose Point of Care 10/09/2023 22:10:14 90 70-120 (mg/dL) Final Performing Location
--- OUTSIDE RECORDS SUMMARY | 2023-12-07 18:33 | External Medical Summary ---
Author Name Unknown Address Unknown Organization : Laboratory Report Ordering Provider Test Date Status MARIELOS SALAS 10/10/2023 09:04:49 Final Observation Date Value Abnormality Reference (Units ) Status Glucose Point of Care 10/10/2023 09:04:49 283 Above high normal 70-120 (mg/dL) Final Performing Location
--- OUTSIDE RECORDS SUMMARY | 2023-12-07 18:33 | External Medical Summary ---
Author Name Unknown Address Unknown Organization : Laboratory Report Ordering Provider Test Date Status MARIELOS SALAS 10/09/2023 16:51:46 Final Observation Date Value Abnormality Reference (Units ) Status Glucose Point of Care 10/09/2023 16:51:46 97 70-120 (mg/dL) Final Performing Location
--- OUTSIDE RECORDS SUMMARY | 2023-12-07 18:33 | External Medical Summary | Summary of Care ---
Author Name Unknown Organization [facility] Address [address] [place] [address] Phone [phone] Care Team Providers Care Construction Driver Name Role Phone Evelyn Andrews MD Primary Care Prov ider Reason for Visit * Reason Onset Date Comments Appointment 10/09/2023 Encounter Details Date Type Department Care Team (Late st Contact Info) Description 10/09/2023 Telephone Psychiatry, [place] [address] [place] [address] Services, [facility] [address] [place] [address] Appointment Allergies Active Allergy Reactions Criticality Noted Date Comments Amoxicillin Edema airway High 01/22/2003 Oxybutynin 03/25/2023 Mouth ulcers Sulfa Antibiotics Edema airway High 08/15/2006 documented as of this encounter (statuses as of 10/09/2023) Medications Medication Sig Dispensed Refills Start Date End Date Status CYANOCOBALAMIN 1000 MCG/ML IJ SOLN one injection monthly 0 Suspended CALCITRIOL 0.25 MCG PO CAPS 1 CAPSULE BY MOUTH MONDAYS/WEDNESDAYS /FRIDAYS 5 4 Suspended [facility] ACET[address]HEN EX [facility] 500 MG Tablet TAKE 1 CAPSULE BY MOUTH EVERY 4 HOURS 0 0 Suspended Oyster Shell Calcium 500 MG Oral Tablet Take 2 Tabs by mouth daily. 60 Tab 5 0 Suspended Additional Information Estradiol 0.1 MG/GM Vaginal Cream (Estrace) Administer 1 g into the vagina in the morning. Apply periurethrally as directed.. 42.5 g 2 2 Suspended Additional Information Patient not taking.Reported on 08/15/2023 Dicyclomine HCl 20 MG Oral Tablet (Bentyl)Indications :Nausea and vomiting,Epigastric pain TAKE 1 TABLET BY MOUTH IN THE AM, AT NOON, IN THE PM AND AT BEDTIME NEEDED FOR ABDOMINAL PAIN Strength: 20 mg 480 Tablet 1 3 Suspended Additional Information Zinc Sulfate 220 (50 Zn) MG Oral Capsule Take 1 Capsule by mouth in the morning. 30 Capsule 0 3 Suspended Additional Information DULoxetine HCl 60 MG Oral Capsule Delayed Release Particles (Cymbalta) Take 2 Capsules by mouth in the morning. 180 Capsule 2 3 Suspended Additional Information SUMAtriptan Succinate 50 MG Oral Tablet (Imitrex)Indication s:Migraine variant MAX OF 2 TABS PER ATTACK AND NO MORE THAN 3 X WEEKLY 10 Tablet 5 3 Suspended Additional Information Myrbetriq 25 MG Oral Tablet Extended Release 24 Hour (Mirabegron ER)Indications:Urge incontinence of urine Take 1 Tablet by mouth in the morning. 90 Tablet 3 3 Suspended Additional Information Patient not taking.Reported on 08/15/2023 Mirtazapine 45 MG Oral Tablet (Remeron)Indication s:Recurrent major depressive disorder, in partial remission (HCC) Take 1 Tablet by mouth at bedtime. 30 Tablet 3 3 Suspended Additional Information ALPRAZolam 0.25 MG Oral Tablet (xaNAX)Indications: Anxiety Take 1 Tablet by mouth at bedtime as needed for Sleep. 30 Tablet 3 3 Suspended Additional Information Furosemide 20 MG Oral Tablet (Lasix) Take 1 Tablet by mouth in the morning. 7 Tablet 0 4 Suspended Additional Information Patient not taking.Reported on 08/15/2023 guaiFENesin-Codeine 100-10 MG/5ML Oral Syrup (Robitussin AC)Indications:COVI D-19 Take 5 mL by mouth every 4 hours as needed for Cough. 120 mL 0 4 Suspended Additional Information Nystatin [id number] UNIT/GM External Cream APPLY TO AFFECTED AREA TWICE A DAY 30 g 2 4 Suspended Additional Information OLANZapine 5 MG Oral Tablet Disintegrating (zyPREXA zyDIS) Place 1 Tablet on tongue in the morning. 30 Tablet 5 4 Suspended Additional Information Omeprazole 20 MG Oral Capsule Delayed Release (PriLOSEC) TAKE 1 CAPSULE BY MOUTH EVERY DAY IN THE MORNING 90 Capsule 4 4 Suspended Additional Information Diphenoxylate-Atrop ine 2.5-0.025 MG Oral Tablet (Lomotil)Indication s:Migraine variant TAKE ONE TABLET BY MOUTH 4 TIMES DAILY NEEDED FOR DAIRRHEA 60 Tablet 0 4 Suspended Additional Information Promethazine HCl 25 MG Oral Tablet (Phenergan)Indicati ons:Nausea Take 1 Tablet by mouth every 8 hours as needed for Nausea. 30 Tablet 3 4 Suspended Additional Information Rizatriptan Benzoate 10 MG Oral Tablet (Maxalt)Indications :Migraine variant TAKE 1 TAB BY MOUTH DAILY NEEDED FOR MIGRAINE. 10 Tablet 5 4 Suspended Additional Information Kvoehaqzrh-ETGW-Txv feine 50-325-40 MG Oral Tablet (Fioricet)Indicatio ns:Migraine variant TAKE ONE TABLET EVERY 6 HOURS NEEDED FOR PAIN 90 Tablet 1 4 Suspended Additional Information Pregabalin 25 MG Oral Capsule (Lyrica)Indications :Copper deficiency myeloneuropathy (HCC),Hereditary and idiopathic peripheral neuropathy Take 1 Capsule by mouth in the morning and 1 Capsule before bedtime. 60 Capsule 5 4 Suspended Additional Information Ondansetron 4 MG Oral Tablet Disintegrating (Zofran)Indications :Intractable vomiting with nausea PLACE 1 TABLET ON TONGUE EVERY 8 HOURS NEEDED FOR NAUSEA. 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 07/09/2019 Iron deficiency anemia 06/28/201109/20 Overview: ICD-10 update of inactive term Iron deficiency anemia 06/28/201109/20 Overview: ICD-10 update of inactive term Iron deficiency anemia pat paulino to inadequate dietary iron intake 09/26/2008 3 Infected postoperative seroma 06/02/2003 09/20/2012 PANNICULITIS, UNSP SITE 05/14/200311/2022 documented as of this encounter (statuses as of 10/09/2023) Immunizations Name Administration Dates Next Due COVID-19 mRNA, LNP-s, No Pre serve, 2-Dose Series (Dress Code) 02/16/2021,11/25/2020,11/01/2020 COVID-19, MRNA-LNP, 23-24, P F, 30 MCG/0.3 mL, 12 YRS AND ABOVE, IM (BlueSpace-Comirnat) 04/10/2023 Covid-19, Mrna, Lnp-s, Pf, B ivalent, 30 Mcg, IM, 12 yrs and above (Dress Code) 04/12/2022 Pneumococcal Conjugate Vacci ne, 20-valent ([id number]) 12/10/2021 Pneumococcal Polysaccharide PPV23 (Pneumovax) 07/21/2009 Seasonal [...] encounter Miscellaneous Notes * Telephone Encounter - Radha Leahy OSA - 10/09/2023 10:03 AM EDT LMOM to schedule return with Stacy Porter. documented in this encounter Plan of Treatment Upcoming Encounters Date Type Department Care Team (Late st Contact Info) Description 10/11/2023 3:00 PM EDT Office Visit Family Medicine [address] [place] [phone] Li Cano PA-C [address] [place] [address] [place] [address] 10/17/2023 3:20 PM EDT Office Visit Gastroenterology, [facility] [address] [facility] [place] [address] Milind Yadav MD [address] [facility] [place] [address] 10/23/2023 9:20 AM EDT Office Visit Neurology [facility] [address] [facility] [place] [address] Aris Mohr MD [address] [facility] [place] [address] 12/04/2023 3:45 PM EDT Office Visit Urology, [facility] [address] [facility] [place] [address] Christopher Almonte MD [address] [place] [address] Health Maintenance Due Date Last Done Comments HPV/Co-Test 1993 Cologuard 2008 Fecal Occult Blood Test 2008 Sigmoidoscopy 2008 Mammogram 08/18/2011 08/18/2010, 08/11/2009 Cervical Cancer Screening 09/27/2014 Pap Smear 09/27/2014 09/28/2011, 11/2010, 07/07/2010, Additional history exists Depression, Most Recent Score >= 10 (will fire each visit until score < 10) 05/23/2023 05/22/2023 Colonoscopy 12/11/2023 12/10/2013, 11/24, 01/15/2007 Colorectal Cancer Screening 12/11/2023 GFR 04/09/2024 10/09/2023, 09/24, 10/07/2023, Additional history exists Albumin/Creatinine Ratio 08/23/2024 024, 08/23/2022, 09/20/2021 CKD HGB USE SMARTSET 37057 10/08/202410/08, 10/06/2023, 10/05/2023, Additional history exists CKD PHOS USE SMARTSET 62155 10/08/202409/24, 10/08/2023, 10/07/2023, Additional history exists DTaP,Tdap,and Td Vaccines (2 [...] this encounter Medical Devices Implanted Type Area Lombardi Developer Device Identifier Shelf Expiration Date Model / Serial / Lot Stent Axios 20mm - [id number] Implanted:Qty: 1 on 01/04/2021 by Leyda Garcia MD at OR [facility] N/A: [employer] : ENDOSCOPY 11/20/2021 [id number] / / [id number] documented as of this encounter Advance Directives Documents on File Type Date Recorded Patient Trimming Cutter Machine Expl anation POLST 01/03/2022 [place] OR [facility] FOR LIFE-SUSTAINING TREATMENT Latest Code Status on File Code Status Date Activated Date Inactivated Comments No Code 09/20/2023 2:18 PM This orde r reflects the patients wishes and were consensually [...] Other - (no specific identity) Health Care Trimming Cutter Machine (appointed verbally by patient or by statute hierarchy) Rowdy Kraus Health Care Trimming Cutter Machine (appointed verbally by patient or by statute hierarchy) Care Teams Construction Driver Relationship Specialty Start Date End Date Evelyn Andrews MD [address] [place] [address] [place] [address] PCP - General Family Medicine 05/04/18 documented as of this encounter
--- OUTSIDE RECORDS SUMMARY | 2023-12-07 18:34 | External Medical Summary ---
Author Name Unknown Address Unknown Organization K1F:[facility] - [address] [place] [address] Laboratory Report Ordering Provider Test Date Status CHRISTIANO BECKERW 10/06/2023 05:10:00 Final Observation Date Value Abnormality Reference (Units ) Status BUN 10/06/2023 05:10:00 44 Above high normal 6-20 (mg/dL) Final Creatinine 10/06/2023 05:10:00 1.3 Above high normal 0.5-1.0 (mg/dL) Final Glomerular filtration rate/1.73 sq M.predicted [Volume Rate/Area] in Serum, Plasma or Blood by Creatinine-based formula (CKD-EPI) 10/06/2023 05:10:00 48 Below low normal >=60 (mL/min) Final eGFR is calculated based on the CKD-EPI 2020 equation Sodium 10/06/2023 05:10:00 141 135-146 (m mol/L) Final Potassium 10/06/2023 05:10:00 4.2 3.5-5.1 (m mol/L) Final Cl 10/06/2023 05:10:00 103 98-107 (mm ol/L) Final CO2 10/06/2023 05:10:00 27 22-32 (mmo l/L) Final Anion gap 10/06/2023 05:10:00 11 7-15 (mmol /L) Final Glucose 10/06/2023 05:10:00 168 Above high normal 70 -120 (mg/dL) Final Calcium 10/06/2023 05:10:00 8.3 Below low normal 8.4 -10.2 (mg/dL) Final Performing Location [facility] - [address] [place] [address]
--- OUTSIDE RECORDS SUMMARY | 2023-12-07 18:34 | External Medical Summary ---
Author Name Unknown Address Unknown Organization K1F:[facility] - [address] [place] [address] Laboratory Report Ordering Provider Test Date Status MIN,MAW 10/09/2023 04:19:00 Final Observation Date Value Abnormality Reference (Units ) Status Magnesium 10/09/2023 04:19:00 1.8 1.5-2.6 (m g/dL) Final Performing Location [facility] - [address] [place] [address]
--- OUTSIDE RECORDS SUMMARY | 2023-12-07 18:34 | External Medical Summary ---
Author Name Unknown Address Unknown Organization : Laboratory Report Ordering Provider Test Date Status MARIELOS SALAS 10/08/2023 08:48:50 Final Observation Date Value Abnormality Reference (Units ) Status Glucose Point of Care 10/08/2023 08:48:50 156 Above high normal 70-120 (mg/dL) Final Performing Location
--- OUTSIDE RECORDS SUMMARY | 2023-12-07 18:34 | External Medical Summary ---
Author Name Unknown Address Unknown Organization : Laboratory Report Ordering Provider Test Date Status MARIELOS SALAS 10/06/2023 07:18:34 Final Observation Date Value Abnormality Reference (Units ) Status Glucose Point of Care 10/06/2023 07:18:34 146 Above high normal 70-120 (mg/dL) Final Performing Location
--- OUTSIDE RECORDS SUMMARY | 2023-12-07 18:34 | External Medical Summary ---
Author Name Unknown Address Unknown Organization K1F:LABORATORY [facility] - [address] [place] [address] Laboratory Report Ordering Provider Test Date Status VIVIANE BECKER 10/05/2023 05:04:00 Final Observation Date Value Abnormality Reference (Units ) Status BUN 10/05/2023 05:04:00 50 Above high normal 6-20 (mg/dL) Final Creatinine 10/05/2023 05:04:00 1.2 Above high normal 0.5-1.0 (mg/dL) Final Glomerular filtration rate/1.73 sq M.predicted [Volume Rate/Area] in Serum, Plasma or Blood by Creatinine-based formula (CKD-EPI) 10/05/2023 05:04:00 54 Below low normal >=60 (mL/min) Final eGFR is calculated based on the CKD-EPI 2020 equation Sodium 10/05/2023 05:04:00 139 135-146 (m mol/L) Final Potassium 10/05/2023 05:04:00 4.2 3.5-5.1 (m mol/L) Final Cl 10/05/2023 05:04:00 102 98-107 (mm ol/L) Final CO2 10/05/2023 05:04:00 27 22-32 (mmo l/L) Final Anion gap 10/05/2023 05:04:00 10 7-15 (mmol /L) Final Glucose 10/05/2023 05:04:00 184 Above high normal 70 -120 (mg/dL) Final Calcium 10/05/2023 05:04:00 8.3 Below low normal 8.4 -10.2 (mg/dL) Final Performing Location LABORATORY [facility] - [address] [place] [address]
--- OUTSIDE RECORDS SUMMARY | 2023-12-07 18:34 | External Medical Summary ---
Author Name Unknown Address Unknown Organization : Laboratory Report Ordering Provider Test Date Status MARIELOS SALAS 10/09/2023 11:54:42 Final Observation Date Value Abnormality Reference (Units ) Status Glucose Point of Care 10/09/2023 11:54:42 98 70-120 (mg/dL) Final Performing Location
--- OUTSIDE RECORDS SUMMARY | 2023-12-07 18:34 | External Medical Summary ---
Author Name Unknown Address Unknown Organization : Laboratory Report Ordering Provider Test Date Status EDSON SHAW 10/05/2023 13:35:00 Final Observation Date Value Abnormality Reference (Units ) Status Thiamine [Moles/volume] in Blood 10/05/2023 13:35:00 >1200 Above high normal 78-185 (nmol/L) Final Vitamin supplementation with in 24 hours prior to
blood draw may affect the accuracy of the results.
This test was developed and its analytical performance
characteristics have been determined by [facility]
[place] It has
not been cleared or approved by the U.S. Food and Drug
Administration. This assay has been validated pursuant
to the CLIA regulations and is used for clinical
purposes.

Test Performed at:
[facility]
[address]
[place] [address]
Armando Chanel M.D., Ph.D.,Director of Laboratories Performing Location
--- OUTSIDE RECORDS SUMMARY | 2023-12-07 18:34 | External Medical Summary ---
Author Name Unknown Address Unknown Organization K1F:LABORATORY [facility] - [address] [place] [address] Laboratory Report Ordering Provider Test Date Status TRINITY SIMMONSLIONEL 10/06/2023 05:10:00 Final Observation Date Value Abnormality Reference (Units ) Status WBC, Total 10/06/2023 05:10:00 7.91 4.00-10.80 (K/uL) Final RBC 10/06/2023 05:10:00 2.73 3.85-5.15 (M/uL) Final Hemoglobin 10/06/2023 05:10:00 8.3 Below low normal 12.0-15.3 (g/dL) Final HCT 10/06/2023 05:10:00 26.4 Below low normal 36.0-45.2 (%) Final MCV 10/06/2023 05:10:00 96.7 81.5-97.5 (fL) Final MCH 10/06/2023 05:10:00 30.4 27.0-34.0 (pg) Final MCHC 10/06/2023 05:10:00 31.4 32.0-36.0 (g/dL) Final RDW 10/06/2023 05:10:00 16.2 11.5-15.5 (%) Final Platelets 10/06/2023 05:10:00 288 140-400 (K/uL) Final MPV 10/06/2023 05:10:00 12.5 6.6-11.1 (fL) Final Nucleated erythrocytes/100 leukocytes [Ratio] in Blood by Automated count 10/06/2023 05:10:00 0 <=0 (/100 WBCs) Final Performing Location LABORATORY [facility] - [address] [place] [address]
--- OUTSIDE RECORDS SUMMARY | 2023-12-07 18:34 | External Medical Summary ---
Author Name Unknown Address Unknown Organization K1F:LABORATORY [facility] - [address] [place] [address] Laboratory Report Ordering Provider Test Date Status VIVIANE BECKER 10/07/2023 05:01:00 Final Observation Date Value Abnormality Reference (Units ) Status BUN 10/07/2023 05:01:00 46 Above high normal 6-20 (mg/dL) Final Creatinine 10/07/2023 05:01:00 1.0 0.5-1.0 (mg/dL) Final Glomerular filtration rate/1.73 sq M.predicted [Volume Rate/Area] in Serum, Plasma or Blood by Creatinine-based formula (CKD-EPI) 10/07/2023 05:01:00 66 >=60 (mL/min) Final eGFR is calculated based on the CKD-EPI 2020 equation Sodium 10/07/2023 05:01:00 143 135-146 (m mol/L) Final Potassium 10/07/2023 05:01:00 4.7 3.5-5.1 (m mol/L) Final Cl 10/07/2023 05:01:00 105 98-107 (mm ol/L) Final CO2 10/07/2023 05:01:00 31 22-32 (mmo l/L) Final Anion gap 10/07/2023 05:01:00 7 7-15 (mmol /L) Final Glucose 10/07/2023 05:01:00 154 Above high normal 70 -120 (mg/dL) Final Calcium 10/07/2023 05:01:00 8.5 8.4-10.2 ( mg/dL) Final Performing Location LABORATORY [facility] - [address] [place] [address]
--- OUTSIDE RECORDS SUMMARY | 2023-12-07 18:34 | External Medical Summary ---
Author Name Unknown Address Unknown Organization K1F:LABORATORY [facility] - [address] [place] [address] Laboratory Report Ordering Provider Test Date Status MIN,MAW 10/05/2023 05:04:00 Final Observation Date Value Abnormality Reference (Units ) Status Phosphate 10/05/2023 05:04:00 2.6 2.5-4.8 (m g/dL) Final Performing Location LABORATORY [facility] - [address] [place] [address]
--- OUTSIDE RECORDS SUMMARY | 2023-12-07 18:34 | External Medical Summary ---
Author Name Unknown Address Unknown Organization : Laboratory Report Ordering Provider Test Date Status MARIELOS SALAS 10/08/2023 12:36:25 Final Observation Date Value Abnormality Reference (Units ) Status Glucose Point of Care 10/08/2023 12:36:25 136 Above high normal 70-120 (mg/dL) Final Performing Location
--- OUTSIDE RECORDS SUMMARY | 2023-12-07 18:34 | External Medical Summary ---
Author Name Unknown Address Unknown Organization K1F:LABORATORY [facility] - [address] [place] [address] Laboratory Report Ordering Provider Test Date Status MINMAW 10/05/2023 05:04:00 Final Observation Date Value Abnormality Reference (Units ) Status Magnesium 10/05/2023 05:04:00 2.0 1.5-2.6 (m g/dL) Final Performing Location LABORATORY [facility] - [address] [place] [address]
--- OUTSIDE RECORDS SUMMARY | 2023-12-07 18:34 | External Medical Summary ---
Author Name Unknown Address Unknown Organization : Laboratory Report Ordering Provider Test Date Status MARIELOS SALAS 10/05/2023 07:52:24 Final Observation Date Value Abnormality Reference (Units ) Status Glucose Point of Care 10/05/2023 07:52:24 175 Above high normal 70-120 (mg/dL) Final Performing Location
--- OUTSIDE RECORDS SUMMARY | 2023-12-07 18:34 | External Medical Summary ---
Author Name Unknown Address Unknown Organization K1F:LABORATORY [facility] - [address] [place] [address] Laboratory Report Ordering Provider Test Date Status MARIELOS SALAS 10/09/2023 04:20:00 Final Observation Date Value Abnormality Reference (Units ) Status WBC, Total 10/09/2023 04:20:00 7.81 4.00-10.80 (K/uL) Final RBC 10/09/2023 04:20:00 2.65 3.85-5.15 (M/uL) Final Hemoglobin 10/09/2023 04:20:00 8.0 Below low normal 12.0-15.3 (g/dL) Final HCT 10/09/2023 04:20:00 26.8 Below low normal 36.0-45.2 (%) Final MCV 10/09/2023 04:20:00 101.1 81.5-97.5 (fL) Final MCH 10/09/2023 04:20:00 30.2 27.0-34.0 (pg) Final MCHC 10/09/2023 04:20:00 29.9 32.0-36.0 (g/dL) Final RDW 10/09/2023 04:20:00 16.0 11.5-15.5 (%) Final Platelets 10/09/2023 04:20:00 385 140-400 (K/uL) Final MPV 10/09/2023 04:20:00 12.7 6.6-11.1 (fL) Final Nucleated erythrocytes/100 leukocytes [Ratio] in Blood by Automated count 10/09/2023 04:20:00 0 <=0 (/100 WBCs) Final Performing Location LABORATORY [facility] - [address] [place] [address]
--- OUTSIDE RECORDS SUMMARY | 2023-12-07 18:34 | External Medical Summary ---
Author Name Unknown Address Unknown Organization : Laboratory Report Ordering Provider Test Date Status NICKIE IRAHETA 10/04/2023 18:15:16 Final Observation Date Value Abnormality Reference (Units ) Status Glucose Point of Care 10/04/2023 18:15:16 134 Above high normal 70-120 (mg/dL) Final Performing Location
--- OUTSIDE RECORDS SUMMARY | 2023-12-07 18:34 | External Medical Summary ---
Author Name Unknown Address Unknown Organization : Laboratory Report Ordering Provider Test Date Status MARIELOS SALAS 10/07/2023 16:40:41 Final Observation Date Value Abnormality Reference (Units ) Status Glucose Point of Care 10/07/2023 16:40:41 191 Above high normal 70-120 (mg/dL) Final Performing Location
--- OUTSIDE RECORDS SUMMARY | 2023-12-07 18:34 | External Medical Summary ---
Author Name Unknown Address Unknown Organization : Laboratory Report Ordering Provider Test Date Status NICKIE IRAHETA 10/05/2023 00:25:59 Final Observation Date Value Abnormality Reference (Units ) Status Glucose Point of Care 10/05/2023 00:25:59 120 70-120 (mg/dL) Final Performing Location
--- OUTSIDE RECORDS SUMMARY | 2023-12-07 18:34 | External Medical Summary ---
Author Name Unknown Address Unknown Organization K1F:LABORATORY [facility] - [address] [place] [address] Laboratory Report Ordering Provider Test Date Status MINMAW 10/07/2023 05:01:00 Final Observation Date Value Abnormality Reference (Units ) Status Phosphate 10/07/2023 05:01:00 3.1 2.5-4.8 (m g/dL) Final Performing Location LABORATORY [facility] - [address] [place] [address]
--- OUTSIDE RECORDS SUMMARY | 2023-12-07 18:34 | External Medical Summary ---
Author Name Unknown Address Unknown Organization K1F:LABORATORY [facility] - [address] [place] [address] Laboratory Report Ordering Provider Test Date Status MIN,MAW 10/08/2023 04:43:00 Final Observation Date Value Abnormality Reference (Units ) Status Phosphate 10/08/2023 04:43:00 3.5 2.5-4.8 (m g/dL) Final Performing Location LABORATORY [facility] - [address] [place] [address]
--- OUTSIDE RECORDS SUMMARY | 2023-12-07 18:34 | External Medical Summary | Summary of Care ---
Author Name Unknown Organization [facility] Address [address] [place] [address] Phone [phone] Care Team Providers Care Tamper Operator Name Role Phone Evelyn Andrews MD Primary Care Prov ider Reason for Visit * Reason Onset Date Comments Appointment 10/09/2023 Pt is admitted. Encounter Details Date Type Department Care Team (Late st Contact Info) Description 10/09/2023 Telephone Hematology/Oncology [facility] [place] [address] [facility] [place] [phone] Boogie Ortiz [facility] [address] [facility] [address] App[facility]ment (Pt is admitted. 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 02/06/2017 05/02/2018 WORK STATION SUPPORT SPECIALIST 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 02/06/2017 07/09/2019 Iron deficiency anemia 06/28/201109/20 Overview: ICD-10 update of inactive term Iron deficiency anemia 06/28/201109/20 Overview: ICD-10 update of inactive term Iron deficiency anemia pat paulino to inadequate dietary iron intake 09/26/2008 3 Infected postoperative seroma 06/02/2003 09/20/2012 [facility]200311/2022 documented as of this encounter (statuses as of 10/09/2023) Immunizations Name Administration Dates Next Due COVID-19 mRNA, LNP-s, No Pre serve, 2-Dose Series ([employer]) 02/16/2021,11/25/2020,11/01/2020 COVID-19, MRNA-LNP, 23-24, P F, 30 MCG/0.3 mL, 12 YRS AND ABOVE, IM ([email or web address]) 04/10/2023 Covid-19, Mrna, Lnp-s, Pf, B ivalent, 30 Mcg, IM, 12 yrs and above ([employer]) 04/12/2022 Pneumococcal Conjugate Vacci ne, 20-valent ([id number]) 12/10/2021 Pneumococcal Polysaccharide PPV23 (Pneumovax) 07/21/2009 Seasonal [...] encounter Miscellaneous Notes * Telephone Encounter - Elana Bonilla OSA - 10/09/2023 9:47 AM EDT Pt removed from schedule per note * Telephone Encounter - Porsche Friend LPN - 10/09/2023 9:31 AM EDT Pt is admitted. Scheduling: Can you please remove patient from todays schedule? Thank you. documented in this encounter Plan of Treatment Upcoming Encounters Date Type Department Care Team (Late st Contact Info) Description 10/11/2023 3:00 PM EDT Office Visit Family Medicine [address] [phone] Li Cano PA-C [address] [place] [address] [place] [address] 10/17/2023 3:20 PM EDT Office Visit Gastroenterology, [facility] [address] [facility] [place] [address] Milind Yadav MD [address] [facility] [place] [address] 10/23/2023 9:20 AM EDT Office Visit Neurology [facility] [address] [facility] [place] [address] Aris Mohr MD [address] [facility] [place] [address] 12/04/2023 3:45 PM EDT Office Visit Urology, [facility] [address] [facility] [place] [address] Christopher Almonte MD [address] [employer] [address] [place] [address] Health Maintenance Due Date Last Done Comments [...] 024, 08/23/2022, 09/20/2021 CKD HGB USE SMARTSET 86709 10/08/202410/08, 10/06/2023, 10/05/2023, Additional history exists CKD PHOS USE SMARTSET 11913 10/08/202409/24, 10/08/2023, 10/07/2023, Additional history exists DTaP,Tdap,and [...] this encounter Medical Devices Implanted Type Area Loom Changer Device Identifier Shelf Expiration Date Model / Serial / Lot Stent Axios 20mm - [id number] Implanted:Qty: 1 on 01/04/2021 by Leyda Garcia MD at [facility] N/A: Stomach [employer] : ENDOSCOPY 11/20/2021 [id number] / / [id number] documented as of this encounter Advance Directives Documents on File Type Date Recorded Patient Log Buyer Expl anation POLST 01/03/2022 [place] [facility] FOR LIFE-SUSTAINING TREATMENT Latest Code Status on File Code Status Date Activated Date Inactivated Comments No Code 09/20/2023 2:18 PM This order reflects the patients wishes [...] Other - (no specific identity) Health Care Log Buyer (appointed verbally by patient or by statute hierarchy) Rowdy Mykel Kraus Health Care Log Buyer (appointed verbally by patient or by statute hierarchy) Care Teams Tamper Operator Relationship Specialty Start Date End Date Evelyn Andrews MD [address] [place] [address] [place] [address] PCP - General Family Medicine 05/04/18 documented as of this encounter
--- OUTSIDE RECORDS SUMMARY | 2023-12-07 18:34 | External Medical Summary ---
Author Name Unknown Address Unknown Organization : Laboratory Report Ordering Provider Test Date Status MARIELOS SALAS 10/07/2023 08:04:05 Final Observation Date Value Abnormality Reference (Units ) Status Glucose Point of Care 10/07/2023 08:04:05 128 Above high normal 70-120 (mg/dL) Final Performing Location
--- OUTSIDE RECORDS SUMMARY | 2023-12-07 18:34 | External Medical Summary ---
Author Name Unknown Address Unknown Organization : Laboratory Report Ordering Provider Test Date Status MARIELOS SALAS 10/07/2023 11:59:58 Final Observation Date Value Abnormality Reference (Units ) Status Glucose Point of Care 10/07/2023 11:59:58 69 Below low normal 70-120 (mg/dL) Final Performing Location
--- OUTSIDE RECORDS SUMMARY | 2023-12-07 18:34 | External Medical Summary ---
Author Name Unknown Address Unknown Organization : Laboratory Report Ordering Provider Test Date Status MARIELOS SALAS 10/05/2023 13:13:04 Final Observation Date Value Abnormality Reference (Units ) Status Glucose Point of Care 10/05/2023 13:13:04 104 70-120 (mg/dL) Final Performing Location
--- OUTSIDE RECORDS SUMMARY | 2023-12-07 18:34 | External Medical Summary ---
Author Name Unknown Address Unknown Organization : Laboratory Report Ordering Provider Test Date Status MARIELOS SALAS 10/08/2023 16:29:50 Final Observation Date Value Abnormality Reference (Units ) Status Glucose Point of Care 10/08/2023 16:29:50 207 Above high normal 70-120 (mg/dL) Final Performing Location
--- OUTSIDE RECORDS SUMMARY | 2023-12-07 18:34 | External Medical Summary ---
Author Name Unknown Address Unknown Organization K1F:LABORATORY [facility] - [address] [place] [address] Laboratory Report Ordering Provider Test Date Status CHECO SIMMONS 10/05/2023 11:13:00 Final Observation Date Value Abnormality Reference (Units ) Status Protein, CSF 10/05/2023 11:13:00 29 15-45 ( mg/dL) Final Performing Location LABORATORY [facility] - [address] [place] [address]
--- OUTSIDE RECORDS SUMMARY | 2023-12-07 18:34 | External Medical Summary ---
Author Name Unknown Address Unknown Organization K1F:LABORATORY [facility] - [address] [place] [address] Laboratory Report Ordering Provider Test Date Status TRINITY SIMMONSLIONEL 10/05/2023 05:04:00 Final Observation Date Value Abnormality Reference (Units ) Status WBC, Total 10/05/2023 05:04:00 9.05 4.00-10.80 (K/uL) Final RBC 10/05/2023 05:04:00 2.84 3.85-5.15 (M/uL) Final Hemoglobin 10/05/2023 05:04:00 8.5 Below low normal 12.0-15.3 (g/dL) Final HCT 10/05/2023 05:04:00 26.8 Below low normal 36.0-45.2 (%) Final MCV 10/05/2023 05:04:00 94.4 81.5-97.5 (fL) Final MCH 10/05/2023 05:04:00 29.9 27.0-34.0 (pg) Final MCHC 10/05/2023 05:04:00 31.7 32.0-36.0 (g/dL) Final RDW 10/05/2023 05:04:00 16.6 11.5-15.5 (%) Final Platelets 10/05/2023 05:04:00 301 140-400 (K/uL) Final MPV 10/05/2023 05:04:00 12.0 6.6-11.1 (fL) Final Nucleated erythrocytes/100 leukocytes [Ratio] in Blood by Automated count 10/05/2023 05:04:00 0 <=0 (/100 WBCs) Final Performing Location LABORATORY [facility] - [address] [place] [address]
--- OUTSIDE RECORDS SUMMARY | 2023-12-07 18:34 | External Medical Summary ---
Author Name Unknown Address Unknown Organization : Laboratory Report Ordering Provider Test Date Status CHECO SIMMONS 10/05/2023 11:13:00 Final Observation Date Value Abnormality Reference (Units ) Status Myelin Basic Protein, CSF 10/05/2023 11:13:00 <2.0 <=4.0 (mcg/L) Final Result Interpretation
< or= 4.0 mcg/L Negative
4.1-6.0 mcg/L Weakly Positive
>6.0 mcg/L Positive
This test was developed and its analytical performance
characteristics have been determined by [employer]
[facility], [place], [place]. It has
not been cleared or approved by the U.S. Food and Drug
Administration. This assay has been validated pursuant
to the CLIA regulations and is used for clinical
purposes. Oligoclonal bands [Interpret ation] in Cerebral spinal fluid by Electrophoresis 10/05/2023 11:13:00 Absent Absent Final GREATER THAN FIVE identical (mirror image) gamma
restriction bands are observed in the patient's CSF
and serum sample. This finding is indicative of
systemic rather than intra-cerebral synthesis of
gamma globulins. The results should be interpreted in
conjunction with all clinical and laboratory data
pertaining to this patient.
Oligoclonal bands are present in the CSF of more than
85% of patients with clinically definite multiple
sclerosis (MS). To distinguish between oligoclonal
bands in the CSF due to a peripheral gammopathy and
oligoclonal bands due to local production in the MACHINE LOADER,
serum and CSF should be tested simultaneously.
Oligoclonal bands can however be observed in a variety
of other diseases, e.g., subacute sclerosing panen-
cephalitis, inflammatory polyneuropathy, MACHINE LOADER lupus,
and brain tumors and infarctions. The clinical
significance of a numerical band count, determined
by isoelectric focusing, has not been definitively
defined. The data should be interpreted in conjunction
with all pertinent clinical and laboratory data for
this patient. IgG synthesis rate 10/05/2023 11:13:00 -4.1 - 9.9-3.3 (mg/24 h) Final IgG, CSF index (Serum/CSF) 10/05/2023 11:13:00 0.40 <0.70 Final The IgG Synthesis rate, CSF and IgG index, CSF are two
formulae for estimating the amount of IgG produced in
the central nervous system. Evidence of increased
synthesis of IgG provides support for the diagnosis of
multiple sclerosis. Albumin, CSF 10/05/2023 11:13:00 13.9 8.0-42. 0 (mg/dL) Final IgG, CSF 10/05/2023 11:13:00 2.4 0.8-7.7 (m g/dL) Final IgG 10/05/2023 11:13:00 427 077-3535 ( mg/dL) Final Albumin 10/05/2023 11:13:00 1.8 Below low normal 3.6 -5.1 (g/dL) Final
Test Performed at:
[facility]
[address] [facility]
[place] [address]
Armando Chanel M.D., Ph.D.,Director of Laboratories Performing Location
--- OUTSIDE RECORDS SUMMARY | 2023-12-07 18:34 | External Medical Summary ---
Author Name Unknown Address Unknown Organization K1F:LABORATORY [facility] - [address] [place] [address] Laboratory Report Ordering Provider Test Date Status TROYCHECO 10/05/2023 11:13:00 Final Some reference ranges and ot her method performance specifications have not been established for this fluid. The test results must be integrated into the clinical context for interpretation. Observation Date Value Abnormality Reference (Units ) Status CSF, color 10/05/2023 11:13:00 Colorless Colorless Final CSF, clarity 10/05/2023 11:13:00 Clear Clear Final Color of Spun Cerebral spinal fluid 10/05/2023 11:13:00 Colorless Colorless Final Tube number of Cerebral spinal fluid 10/05/2023 11:13:00 3 Final Nucleated cells [#/volume] in Body fluid by Automated count 10/05/2023 11:13:00 2 <5 (cells/uL) Final Erythrocytes [#/volume] in Cerebral spinal fluid 10/05/2023 11:13:00 607 Above high normal <5 (cells/uL) Final Performing Location [facility]ORY [facility] - [address] [place] [address]
--- OUTSIDE RECORDS SUMMARY | 2023-12-07 18:34 | External Medical Summary ---
Author Name Unknown Address Unknown Organization : Laboratory Report Ordering Provider Test Date Status MARIELOS SALAS 10/08/2023 21:35:22 Final Observation Date Value Abnormality Reference (Units ) Status Glucose Point of Care 10/08/2023 21:35:22 140 Above high normal 70-120 (mg/dL) Final Performing Location
--- OUTSIDE RECORDS SUMMARY | 2023-12-07 18:34 | External Medical Summary ---
Author Name Unknown Address Unknown Organization K1F:LABORATORY [facility] - [address] [place] [address] Laboratory Report Ordering Provider Test Date Status MINMAW 10/06/2023 05:10:00 Final Observation Date Value Abnormality Reference (Units ) Status Magnesium 10/06/2023 05:10:00 1.8 1.5-2.6 (m g/dL) Final Performing Location LAB[facility]ATORY [facility] - [address] [place] [address]
--- OUTSIDE RECORDS SUMMARY | 2023-12-07 18:34 | External Medical Summary ---
Author Name Unknown Address Unknown Organization K1F:LABORATORY [facility] - [address] [place] [address] Laboratory Report Ordering Provider Test Date Status CHRISTIANO BECKERW 10/08/2023 04:43:00 Final Observation Date Value Abnormality Reference (Units ) Status BUN 10/08/2023 04:43:00 50 Above high normal 6-20 (mg/dL) Final Creatinine 10/08/2023 04:43:00 1.0 0.5-1.0 (mg/dL) Final Glomerular filtration rate/1.73 sq M.predicted [Volume Rate/Area] in Serum, Plasma or Blood by Creatinine-based formula (CKD-EPI) 10/08/2023 04:43:00 69 >=60 (mL/min) Final eGFR is calculated based on the CKD-EPI 2020 equation Sodium 10/08/2023 04:43:00 143 135-146 (m mol/L) Final Potassium 10/08/2023 04:43:00 5.1 3.5-5.1 (m mol/L) Final Cl 10/08/2023 04:43:00 106 98-107 (mm ol/L) Final CO2 10/08/2023 04:43:00 28 22-32 (mmo l/L) Final Anion gap 10/08/2023 04:43:00 9 7-15 (mmol /L) Final Glucose 10/08/2023 04:43:00 140 Above high normal 70 -120 (mg/dL) Final Calcium 10/08/2023 04:43:00 8.5 8.4-10.2 ( mg/dL) Final Performing Location LABORATORY [facility] - [address] [place] [address]
--- OUTSIDE RECORDS SUMMARY | 2023-12-07 18:34 | External Medical Summary ---
Author Name Unknown Address Unknown Organization K1F:[facility] - [address] [place] [address] Laboratory Report Ordering Provider Test Date Status MIN,MAW 10/09/2023 04:19:00 Final Observation Date Value Abnormality Reference (Units ) Status Phosphate 10/09/2023 04:19:00 3.6 2.5-4.8 (m g/dL) Final Performing Location [facility] - [address] [place] [address]
--- OUTSIDE RECORDS SUMMARY | 2023-12-07 18:34 | External Medical Summary ---
Author Name Unknown Address Unknown Organization : Laboratory Report Ordering Provider Test Date Status MARIELOS SALAS 10/06/2023 21:53:40 Final Observation Date Value Abnormality Reference (Units ) Status Glucose Point of Care 10/06/2023 21:53:40 138 Above high normal 70-120 (mg/dL) Final Performing Location
--- OUTSIDE RECORDS SUMMARY | 2023-12-07 18:34 | External Medical Summary ---
Author Name Unknown Address Unknown Organization K1F:[facility] - [address] [place] [address] Laboratory Report Ordering Provider Test Date Status CHECO SIMMONS 10/05/2023 11:13:00 Final Normal CSF Glucose concentra tion should be approximately 60% of plasma/serum glucose value.
null Observation Date Value Abnormality Reference (Units ) Status Glucose, CSF 10/05/2023 11:13:00 87 Above high normal 45-70 (mg/dL) Final Performing Location [facility] - [address] [place] [address]
--- OUTSIDE RECORDS SUMMARY | 2023-12-07 18:34 | External Medical Summary ---
Author Name Unknown Address Unknown Organization K01:LABORATORY [facility] - [address] [place] [address] Laboratory Report Ordering Provider Test Date Status CHECO SIMMONS 10/05/2023 11:13:00 Final Observation Date Value Abnormality Reference (Units) Status Pathologist review of results 10/05/2023 11:13:00 Cerebrospinal fluid: Final Pathologist review of results 10/05/2023 11:13:00 - Differential shows granulocytic left shift and occasional nucleated red blood cell, recommend correlation with peripheral blood differential. Findings are suspicious for marrow contamination. Final Performing Location [facility] - [address] [place] [address]
--- OUTSIDE RECORDS SUMMARY | 2023-12-07 18:34 | External Medical Summary ---
Author Name Unknown Address Unknown Organization : Laboratory Report Ordering Provider Test Date Status NICKIE IRAHETA 10/04/2023 21:25:54 Final Observation Date Value Abnormality Reference (Units ) Status Glucose Point of Care 10/04/2023 21:25:54 155 Above high normal 70-120 (mg/dL) Final Performing Location
--- OUTSIDE RECORDS SUMMARY | 2023-12-07 18:34 | External Medical Summary ---
Author Name Unknown Address Unknown Organization : Laboratory Report Ordering Provider Test Date Status MARIELOS SALAS 10/05/2023 21:41:28 Final Observation Date Value Abnormality Reference (Units ) Status Glucose Point of Care 10/05/2023 21:41:28 172 Above high normal 70-120 (mg/dL) Final Performing Location
--- OUTSIDE RECORDS SUMMARY | 2023-12-07 18:34 | External Medical Summary ---
Author Name Unknown Address Unknown Organization K1F:[facility] - [address] [place] [address] Laboratory Report Ordering Provider Test Date Status CHRISTIANO BECKERW 10/09/2023 04:19:00 Final Observation Date Value Abnormality Reference (Units ) Status BUN 10/09/2023 04:19:00 53 Above high normal 6-20 (mg/dL) Final Creatinine 10/09/2023 04:19:00 0.9 0.5-1.0 (mg/dL) Final Glomerular filtration rate/1.73 sq M.predicted [Volume Rate/Area] in Serum, Plasma or Blood by Creatinine-based formula (CKD-EPI) 10/09/2023 04:19:00 71 >=60 (mL/min) Final eGFR is calculated based on the CKD-EPI 2020 equation Sodium 10/09/2023 04:19:00 145 135-146 (m mol/L) Final Potassium 10/09/2023 04:19:00 5.1 3.5-5.1 (m mol/L) Final Cl 10/09/2023 04:19:00 107 98-107 (mm ol/L) Final CO2 10/09/2023 04:19:00 30 22-32 (mmo l/L) Final Anion gap 10/09/2023 04:19:00 8 7-15 (mmol /L) Final Glucose 10/09/2023 04:19:00 139 Above high normal 70 -120 (mg/dL) Final Calcium 10/09/2023 04:19:00 8.6 8.4-10.2 ( mg/dL) Final Performing Location [facility] - [address] [place] [address]
--- OUTSIDE RECORDS SUMMARY | 2023-12-07 18:34 | External Medical Summary ---
Author Name Unknown Address Unknown Organization K1F:[facility] - [address] [place] [address] Laboratory Report Ordering Provider Test Date Status MIN,MAW 10/06/2023 05:10:00 Final Observation Date Value Abnormality Reference (Units ) Status Phosphate 10/06/2023 05:10:00 3.2 2.5-4.8 (m g/dL) Final Performing Location [facility] - [address] [place] [address]
--- OUTSIDE RECORDS SUMMARY | 2023-12-07 18:34 | External Medical Summary ---
Author Name Unknown Address Unknown Organization K1F:[facility] - [address] [place] [address] Laboratory Report Ordering Provider Test Date Status MIN,MAW 10/08/2023 04:43:00 Final Observation Date Value Abnormality Reference (Units ) Status Magnesium 10/08/2023 04:43:00 1.9 1.5-2.6 (m g/dL) Final Performing Location [facility] - [address] [place] [address]
--- OUTSIDE RECORDS SUMMARY | 2023-12-07 18:34 | External Medical Summary ---
Author Name Unknown Address Unknown Organization : Laboratory Report Ordering Provider Test Date Status MARIELOS SALAS 10/06/2023 11:17:56 Final Observation Date Value Abnormality Reference (Units ) Status Glucose Point of Care 10/06/2023 11:17:56 167 Above high normal 70-120 (mg/dL) Final Performing Location
--- OUTSIDE RECORDS SUMMARY | 2023-12-07 18:34 | External Medical Summary ---
Author Name Unknown Address Unknown Organization : Laboratory Report Ordering Provider Test Date Status MARIELOS SALAS 10/06/2023 16:20:46 Final Observation Date Value Abnormality Reference (Units ) Status Glucose Point of Care 10/06/2023 16:20:46 125 Above high normal 70-120 (mg/dL) Final Performing Location
--- OUTSIDE RECORDS SUMMARY | 2023-12-07 18:34 | External Medical Summary ---
Author Name Unknown Address Unknown Organization : Laboratory Report Ordering Provider Test Date Status MARIELOS SALAS 10/05/2023 16:17:24 Final Observation Date Value Abnormality Reference (Units ) Status Glucose Point of Care 10/05/2023 16:17:24 144 Above high normal 70-120 (mg/dL) Final Performing Location
--- OUTSIDE RECORDS SUMMARY | 2023-12-07 18:34 | External Medical Summary ---
Author Name Unknown Address Unknown Organization : Laboratory Report Ordering Provider Test Date Status MARIELOS SALAS 10/09/2023 07:14:58 Final Observation Date Value Abnormality Reference (Units ) Status Glucose Point of Care 10/09/2023 07:14:58 128 Above high normal 70-120 (mg/dL) Final Performing Location
--- OUTSIDE RECORDS SUMMARY | 2023-12-07 18:34 | External Medical Summary ---
Author Name Unknown Address Unknown Organization : Laboratory Report Ordering Provider Test Date Status MARIELOS SALAS 10/07/2023 21:36:32 Final Observation Date Value Abnormality Reference (Units ) Status Glucose Point of Care 10/07/2023 21:36:32 134 Above high normal 70-120 (mg/dL) Final Performing Location
--- OUTSIDE RECORDS SUMMARY | 2023-12-07 18:34 | External Medical Summary ---
Author Name Unknown Address Unknown Organization K1F:[facility] - [address] [place] [address] Laboratory Report Ordering Provider Test Date Status TROYCHECO 10/05/2023 11:13:00 Final Some reference ranges and ot her method performance specifications have not been established for this fluid. The test results must be integrated into the clinical context for interpretation. Observation Date Value Abnormality Reference (Units ) Status SYNC TOTAL NUCLEATED CELLS, CSF 10/05/2023 11:13:00 2 (cells/uL) Final Neutrophils/100 leukocytes in Cerebral spinal fluid 10/05/2023 11:13:00 48 Above high normal 0-6 (%) Final Lymphocytes/100 leukocytes in Cerebral spinal fluid 10/05/2023 11:13:00 33 Below low normal 40-80 (%) Final Monocytes/100 leukocytes in Cerebral spinal fluid 10/05/2023 11:13:00 6 Below low normal 15-45 (%) Final Eosinophils/100 leukocytes in Cerebral spinal fluid 10/05/2023 11:13:00 4 Above high normal 0-1 (%) Final Basophils/100 leukocytes in Cerebral spinal fluid 10/05/2023 11:13:00 1 Above high normal <=0 (%) Final Immature granulocytes/100 leukocytes in Cerebral spinal fluid 10/05/2023 11:13:00 7 Above high normal <=0 (%) Final Leukocytes other/100 leukocytes in Cerebral spinal fluid 10/05/2023 11:13:00 1 Above high normal <=0 (%) Final Nucleated erythrocyte Neutrophils [#/volume] in Ce rebral spinal fluid 10/05/2023 11:13:00 0.96 (cells/uL) Final Lymphocytes [#/volume] in Ce rebral spinal fluid 10/05/2023 11:13:00 0.66 (cells/uL) Final Monocytes [#/volume] in Cere bral spinal fluid 10/05/2023 11:13:00 0.12 (cells/uL) Final Eosinophils [#/volume] in Ce rebral spinal fluid 10/05/2023 11:13:00 0.08 (cells/uL) Final Basophils [#/volume] in Cere bral spinal fluid 10/05/2023 11:13:00 0.02 (cells/uL) Final IMMATURE GRANULOCYTES IN CSF ABS 10/05/2023 11:13:00 0.14 (cells/uL) Final OTHER CELLS IN CSF ABS 10/05/2023 11:13:00 0.02 (cells/uL) Final Performing Location LAB[facility]ATORY [facility] - [address] [place], [place] [address] [place] [address]
--- OUTSIDE RECORDS SUMMARY | 2023-12-07 18:35 | External Medical Summary ---
Author Name Unknown Address Unknown Organization K1F:[facility] - [address] [place] [address] Laboratory Report Ordering Provider Test Date Status MIN,MAW 10/02/2023 06:13:00 Final Observation Date Value Abnormality Reference (Units ) Status Phosphate 10/02/2023 06:13:00 3.4 2.5-4.8 (m g/dL) Final Performing Location [facility] - [address] [place] [address]
--- OUTSIDE RECORDS SUMMARY | 2023-12-07 18:35 | External Medical Summary ---
Author Name Unknown Address Unknown Organization : Laboratory Report Ordering Provider Test Date Status CHECO SIMMONS 10/02/2023 17:18:43 Final Observation Date Value Abnormality Reference (Units) Status Glucose Point of Care 10/02/2023 17:18:43 30 Below lower panic limits 70-120 (mg/dL) Final POCT DEVICE COMMENT 10/02/2023 17:18:43 Notified Provider Final Performing Location
--- OUTSIDE RECORDS SUMMARY | 2023-12-07 18:35 | External Medical Summary ---
Author Name Unknown Address Unknown Organization : Laboratory Report Ordering Provider Test Date Status CHECO SIMMONS 10/03/2023 21:09:55 Final Observation Date Value Abnormality Reference (Units ) Status Glucose Point of Care 10/03/2023 21:09:55 181 Above high normal 70-120 (mg/dL) Final Performing Location
--- OUTSIDE RECORDS SUMMARY | 2023-12-07 18:35 | External Medical Summary ---
Author Name Unknown Address Unknown Organization K1F:[facility] - [address] [place] [address] Laboratory Report Ordering Provider Test Date Status TOMASEDSON CUELLAR 10/03/2023 17:29:00 Final Observation Date Value Abnormality Reference (Units ) Status Magnesium 10/03/2023 17:29:00 1.7 1.5-2.6 (m g/dL) Final Performing Location [facility] - [address] [place] [address]
--- OUTSIDE RECORDS SUMMARY | 2023-12-07 18:35 | External Medical Summary ---
Author Name Unknown Address Unknown Organization K01:LABORATORY [facility] [place] - [address] [place] [address] Laboratory Report Ordering Provider Test Date Status CHECO SIMMONS 10/03/2023 04:53:00 Final Observation Date Value Abnormality Reference (Units ) Status HbA1C 10/03/2023 04:53:00 5.5 4.0-5.6 (% ) Final The use of HbA1c to monitor glycemic status is based on normal hemoglobin and HbA composition. This test should not be used in patients with abnormal hemoglobin that affects the half life of the red blood cell or the in vivo glycation rates. Glucose, estimated average 10/03/2023 04:53:00 111 <126 (mg/dL) Final Performing Location LABORATORY [facility] - [address] [facility] [address]
--- OUTSIDE RECORDS SUMMARY | 2023-12-07 18:35 | External Medical Summary ---
Author Name Unknown Address Unknown Organization K1F:LABORATORY [facility] - [address] [place] [address] Laboratory Report Ordering Provider Test Date Status TROYTRINITYLIONEL 10/03/2023 04:53:00 Final Observation Date Value Abnormality Reference (Units ) Status WBC, Total 10/03/2023 04:53:00 13.99 Above high normal 4.00-10.80 (K/uL) Final RBC 10/03/2023 04:53:00 2.90 3.85-5.15 (M/uL) Final Hemoglobin 10/03/2023 04:53:00 8.6 Below low normal 12.0-15.3 (g/dL) Final HCT 10/03/2023 04:53:00 27.1 Below low normal 36.0-45.2 (%) Final MCV 10/03/2023 04:53:00 93.4 81.5-97.5 (fL) Final MCH 10/03/2023 04:53:00 29.7 27.0-34.0 (pg) Final MCHC 10/03/2023 04:53:00 31.7 32.0-36.0 (g/dL) Final RDW 10/03/2023 04:53:00 18.2 11.5-15.5 (%) Final Platelets 10/03/2023 04:53:00 310 140-400 (K/uL) Final MPV 10/03/2023 04:53:00 12.6 6.6-11.1 (fL) Final Nucleated erythrocytes/100 leukocytes [Ratio] in Blood by Automated count 10/03/2023 04:53:00 0 <=0 (/100 WBCs) Final Performing Location LAB[facility]ATORY [facility] - [address] [place] [address]
--- OUTSIDE RECORDS SUMMARY | 2023-12-07 18:35 | External Medical Summary ---
Author Name Unknown Address Unknown Organization : Laboratory Report Ordering Provider Test Date Status CHECO SIMMONS 10/03/2023 16:44:11 Final Observation Date Value Abnormality Reference (Units ) Status Glucose Point of Care 10/03/2023 16:44:11 132 Above high normal 70-120 (mg/dL) Final Performing Location
--- OUTSIDE RECORDS SUMMARY | 2023-12-07 18:35 | External Medical Summary ---
Author Name Unknown Address Unknown Organization : Laboratory Report Ordering Provider Test Date Status CHECO SIMMONS 10/02/2023 14:18:27 Final Observation Date Value Abnormality Reference (Units ) Status Glucose Point of Care 10/02/2023 14:18:27 111 70-120 (mg/dL) Final Performing Location
--- OUTSIDE RECORDS SUMMARY | 2023-12-07 18:35 | External Medical Summary ---
Author Name Unknown Address Unknown Organization : Laboratory Report Ordering Provider Test Date Status CHECO SIMMONS 10/04/2023 00:21:45 Final Observation Date Value Abnormality Reference (Units ) Status Glucose Point of Care 10/04/2023 00:21:45 113 70-120 (mg/dL) Final Performing Location
--- OUTSIDE RECORDS SUMMARY | 2023-12-07 18:35 | External Medical Summary ---
Author Name Unknown Address Unknown Organization : Laboratory Report Ordering Provider Test Date Status CHECO SIMMONS 10/02/2023 17:41:26 Final Observation Date Value Abnormality Reference (Units ) Status Glucose Point of Care 10/02/2023 17:41:26 163 Above high normal 70-120 (mg/dL) Final Performing Location
--- OUTSIDE RECORDS SUMMARY | 2023-12-07 18:35 | External Medical Summary ---
Author Name Unknown Address Unknown Organization : Laboratory Report Ordering Provider Test Date Status CHECO SIMMONS 10/02/2023 12:05:52 Final Observation Date Value Abnormality Reference (Units ) Status Glucose Point of Care 10/02/2023 12:05:52 438 Above high normal 70-120 (mg/dL) Final Performing Location
--- OUTSIDE RECORDS SUMMARY | 2023-12-07 18:35 | External Medical Summary ---
Author Name Unknown Address Unknown Organization K1F:[facility] - [address] [place] [address] Laboratory Report Ordering Provider Test Date Status TROYCHECO 10/02/2023 17:51:00 Final Observation Date Value Abnormality Reference (Units ) Status Body temperature 10/02/2023 17:51:00 37.0 (C) Final pH of Arterial blood 10/02/2023 17:51:00 7.335 Below low normal 7.350-7.450 (units) Final Carbon dioxide [Partial pressure] in Arterial blood 10/02/2023 17:51:00 40.6 35.0-45.0 (mmHg) Final Oxygen [Partial pressure] in Arterial blood 10/02/2023 17:51:00 62.9 Below low normal 75.0-100.0 (mmHg) Final Base excess, Arterial 10/02/2023 17:51:00 -3.8 Below low normal -2.0-2.0 (mmol/L) Final Hemoglobin [Mass/volume] in Blood by Oximetry 10/02/2023 17:51:00 8.1 Below low normal 12.0-15.3 (g/dL) Final Oxyhemoglobin, Arterial (FO2HB) 10/02/2023 17:51:00 87.5 Below low normal 94.0-99.0 (% total Hgb) Final Carboxyhemoglobin 10/02/2023 17:51:00 1.1 <=1.5 (% total Hgb) Final Smokers: 0-9.0 % Methemoglobin 10/02/2023 17:51:00 2.0 Above high normal <=1.5 (% total Hgb) Final Deoxyhemoglobin/Hemog lobin.total in Arterial blood 10/02/2023 17:51:00 9.4 Above high normal 0.0-5.0 (% total Hgb) Final Oxygen content in Arterial blood 10/02/2023 17:51:00 10.1 Below low normal 15.0-24.0 (%vol) Final Oxygen/Total gas setting [Volume Fraction] Ventilator 10/02/2023 17:51:00 Not Provided (%) Final O2 FLOW, [facility] - [facility] 10/02/2023 17:51:00 5 (L/min) Final Bicarbonate, Venous, POC (i-STAT) 10/02/2023 17:51:00 21.1 Below low normal 23.0-31.0 (mmol/L) Final Performing Location LABORATORY [facility] - [address] [place] [address]
--- OUTSIDE RECORDS SUMMARY | 2023-12-07 18:35 | External Medical Summary ---
Author Name Unknown Address Unknown Organization : Laboratory Report Ordering Provider Test Date Status CHECO SIMMONS 10/03/2023 11:31:38 Final Observation Date Value Abnormality Reference (Units ) Status Glucose Point of Care 10/03/2023 11:31:38 240 Above high normal 70-120 (mg/dL) Final Performing Location
--- OUTSIDE RECORDS SUMMARY | 2023-12-07 18:35 | External Medical Summary ---
Author Name Unknown Address Unknown Organization : Laboratory Report Ordering Provider Test Date Status NICKIE IRAHETA 10/04/2023 16:42:14 Final Observation Date Value Abnormality Reference (Units ) Status Glucose Point of Care 10/04/2023 16:42:14 157 Above high normal 70-120 (mg/dL) Final Performing Location
--- OUTSIDE RECORDS SUMMARY | 2023-12-07 18:35 | External Medical Summary ---
Author Name Unknown Address Unknown Organization K1F:[facility] - [address] [place] [address] Laboratory Report Ordering Provider Test Date Status MINMAW 10/04/2023 06:20:00 Final Observation Date Value Abnormality Reference (Units ) Status Magnesium 10/04/2023 06:20:00 1.6 1.5-2.6 (m g/dL) Final Performing Location [facility] - [address] [place] [address]
--- OUTSIDE RECORDS SUMMARY | 2023-12-07 18:35 | External Medical Summary ---
Author Name Unknown Address Unknown Organization : Laboratory Report Ordering Provider Test Date Status CHECO SIMMONS 10/04/2023 06:11:11 Final Observation Date Value Abnormality Reference (Units ) Status Glucose Point of Care 10/04/2023 06:11:11 192 Above high normal 70-120 (mg/dL) Final Performing Location
--- OUTSIDE RECORDS SUMMARY | 2023-12-07 18:35 | External Medical Summary ---
Author Name Unknown Address Unknown Organization : Laboratory Report Ordering Provider Test Date Status CHECO SIMMONS 10/03/2023 03:37:56 Final Observation Date Value Abnormality Reference (Units ) Status Glucose Point of Care 10/03/2023 03:37:56 103 70-120 (mg/dL) Final Performing Location
--- OUTSIDE RECORDS SUMMARY | 2023-12-07 18:35 | External Medical Summary ---
Author Name Unknown Address Unknown Organization K1F:LABORATORY [facility] - [address] [place] [address] Laboratory Report Ordering Provider Test Date Status CHECO SIMMONS 10/03/2023 04:53:00 Final Observation Date Value Abnormality Reference (Units ) Status Calcium.ionized [Moles/volume] in Serum or Plasma by Ion-selective membrane electrode (ISE) 10/03/2023 04:53:00 1.22 1.13-1.32 (mmol/L) Final This test was developed and its performance characteristics dtermined by [email or web address]. It has not been cleared or approved by the [place] Food and Drug Administration Performing Location LABORATORY [facility] - [address] [place] [address]
--- OUTSIDE RECORDS SUMMARY | 2023-12-07 18:35 | External Medical Summary ---
Author Name Unknown Address Unknown Organization : Laboratory Report Ordering Provider Test Date Status CHECO SIMMONS 10/02/2023 20:11:16 Final Observation Date Value Abnormality Reference (Units ) Status Glucose Point of Care 10/02/2023 20:11:16 62 Below low normal 70-120 (mg/dL) Final Performing Location
--- OUTSIDE RECORDS SUMMARY | 2023-12-07 18:35 | External Medical Summary ---
Author Name Unknown Address Unknown Organization : Laboratory Report Ordering Provider Test Date Status CHECO SIMMONS 10/02/2023 23:14:56 Final Observation Date Value Abnormality Reference (Units ) Status Glucose Point of Care 10/02/2023 23:14:56 98 70-120 (mg/dL) Final Performing Location
--- OUTSIDE RECORDS SUMMARY | 2023-12-07 18:35 | External Medical Summary | Summary of Care ---
Author Name Unknown Organization [facility] Address [address] [place] [address] Phone [phone] Care Team Providers Care Staffing Clerk Name Role Phone Evelyn Andrews MD Primary Care Prov ider Reason for Visit * Auth/Cert Specialty Diagnoses / Procedures Referred By Francisco mathew Referred To Contact Diagnoses FTT Alen Lrasen MD [address] [place], [place] [address] [address] [address] Referral ID Status Reason Start Date Expiration Date Visits Re quested Visits Authorized [id number] Encounter Details Date Type Department Care Team (Latest Contact Info) Description 10/03/2023 7:58 AM EDT - 10/03/2023 11:59 PM EDT Hospital Encounter Cardiac Studies, [address] [phone] Discharge Disposition: Home - Self Care Allergies Active Allergy Reactions Criticality Noted Date Comments Amoxicillin Edema airway High 01/22/2003 Oxybutynin 03/25/2023 Mouth ulcers Sulfa Antibiotics Edema airway High 08/15/2006 documented as of this encounter (statuses as of 10/04/2023) Medications Medication Sig Dispensed Refills Start Date [...] mL 0 4 Suspended Additional Information Nystatin [id number] UNIT/GM External Cream APPLY TO AFFECTED AREA [...] 10 Tablet 5 4 Suspended Additional Information Fztdoemfat-XKBG-Has feine 50-325-40 MG Oral Tablet (Fioricet)Indicatio ns:Migraine [...] as of this encounter (statuses as of 10/04/2023) Active Problems Problem Noted Date Diagnosed Date Mixed incontinence 10/02/2023 Retention of urine 10/02/2023 [...] as of this encounter (statuses as of 10/04/2023) Resolved Problems Problem Noted Date Diagnosed Date Resolved Date Old [place] (myocardial infarction) 03/01/2023 03/01/2023 Atherosclerosis of [place] co ronary artery without angina pectoris 02/08/2022 03/08/2022 Hyperparathyroidism 10/15/2021 03/01/20 Decreased GFR 08/17/2021 03/01/2023 Nephrolithiasis 02/16/2021 01/27/2022 Overview: Cysto 11/24/21 Recurrent major depressive d isorder, in partial remission 07/09/2019 07/13/2023 Overview: Depression is included in the Bipolar condition on pl PFO with atrial septal aneurysm 05/16/2019 06/07/2022 Iron deficiency anemia 04/24/201911/29 Overview: More specific on PL Protein-calorie malnutrition 09/28/2018 09/23/2021 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/2021 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 05/02/2018 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 07/09/2019 Iron deficiency anemia 06/28/201109/20 Overview: ICD-10 update of inactive term Iron deficiency anemia 06/28/201109/20 Overview: ICD-10 update of inactive term Iron deficiency anemia pat paulino to inadequate dietary iron intake 09/26/2008 3 Infected postoperative seroma 06/02/2003 09/20/2012 PANNICULITIS, [facility] SITE 05/14/200311/2022 documented as of this encounter (statuses as of 10/04/2023) Immunizations Name Administration Dates Next Due COVID-19 mRNA, LNP-s, No Pre serve, 2-Dose Series (Writer's Bloq) 02/16/2021,11/25/2020,11/01/2020 COVID-19, MRNA-LNP, 23-24, P F, 30 MCG/0.3 mL, 12 YRS AND ABOVE, IM (SavySwap-Comirnat) 04/10/2023 Covid-19, Mrna, Lnp-s, Pf, B ivalent, 30 Mcg, IM, 12 yrs and above (Pfizer) 04/12/2022 Pneumococcal Conjugate Vacci ne, 20-valent ([id number]) 12/10/2021 Pneumococcal Polysaccharide PPV23 (Pneumovax) 07/21/2009 Seasonal [...] Team (Late st Contact Info) Description 10/09/2023 10:45 AM EDT Immunization/Injec tion Hematology/Oncology Treatment, [place] [address] [place] [phone] Nurse, Med 4 [address] [facility] [place] [address] 10/17/2023 3:20 PM EDT Office Visit Gastroenterology, [facility] [address] [place] [address] Milind Yadav MD [address] [facility] [place] [address] 10/23/2023 9:20 AM EDT Office Visit Neurology [facility] [address] [facility] [place] [address] Aris Mohr MD [address] [facility] [place] [address] 12/04/2023 3:45 PM EDT Office Visit Urology, [facility] 132 [facility] [place] [address] Christopher Almonte MD [address] [place] [address] Health Maintenance Due [...] 11/24, 01/15/2007 Colorectal Cancer Screening 12/11/2023 GFR 04/04/2024 10/04/2023, 0402/2024, 10/03/2023, Additional history exists Albumin/Creatinine Ratio 08/23/2024 024, 08/23/2022, 09/20/2021 CKD HGB USE SMARTSET 56644 10/03/202410/03, 10/03/2023, 10/02/2023, Additional history exists CKD PHOS USE SMARTSET 30766 10/03/202409/24, 10/03/2023, 10/03/2023, Additional history exists DTaP,Tdap,and Td Vaccines (2 [...] this encounter Medical Devices Implanted Type Area Roastmaster Device Identifier Shelf Expiration Date Model / Serial / Lot Stent Axios 20mm - [id number] Implanted:Qty: 1 on 01/04/2021 by Leyda Garcia MD at OR [facility] N/A: Stomach [employer] : ENDOSCOPY 11/20/2021 [id number] / / [id number] documented as of this encounter Procedures Procedure Name Priority Date/Time Associated Diagnosis Comments ECHO, COMPLETE (2D), TRANS-THORACIC Routine 10/03/2023 9:40 AM EDT Heart failure (HCC) documented in this encounter Results * ECHO, COMPLETE (2D), TRANS-THORACIC (10/03/2023 9:40 AM EDT) LEFT VENTRICULAR EJECTION FRACTION 60 % [facility] CARDIOLOGY 10/03/2023 9:07 AM EDT Jess Carranza MD ECHOCARDIOLOGY [facility] CARDIOLOGY documented in this encounter Advance Directives Documents on File Type Date Recorded 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
--- OUTSIDE RECORDS SUMMARY | 2023-12-07 18:35 | External Medical Summary ---
Author Name Unknown Address Unknown Organization [facility] [address] [place] [address] Laboratory Report Ordering Provider Test Date Status MIN,MAW 10/03/2023 04:53:00 Final Observation Date Value Abnormality Reference (Units ) Status Phosphate 10/03/2023 04:53:00 5.0 Above high normal 2. 5-4.8 (mg/dL) Final Performing Location [facility] [address] [place] [address]
--- OUTSIDE RECORDS SUMMARY | 2023-12-07 18:35 | External Medical Summary ---
Author Name Unknown Address Unknown Organization [facility] - [address] [place] [address] Laboratory Report Ordering Provider Test Date Status DAYAMI SHAWSUF 10/03/2023 17:29:00 Final Observation Date Value Abnormality Reference (Units ) Status Phosphate 10/03/2023 17:29:00 3.7 2.5-4.8 (m g/dL) Final Performing Location [facility] [address] [place] [address]
--- OUTSIDE RECORDS SUMMARY | 2023-12-07 18:35 | External Medical Summary ---
Author Name Unknown Address Unknown Organization [facility] - [address] [place] [address] Laboratory Report Ordering Provider Test Date Status EDSON SHAW 10/03/2023 17:29:00 Final Observation Date Value Abnormality Reference (Units ) Status BUN 10/03/2023 17:29:00 62 Above high normal 6-20 (mg/dL) Final Creatinine 10/03/2023 17:29:00 1.5 Above high normal 0.5-1.0 (mg/dL) Final Glomerular filtration rate/1.73 sq M.predicted [Volume Rate/Area] in Serum, Plasma or Blood by Creatinine-based formula (CKD-EPI) 10/03/2023 17:29:00 39 Below low normal >=60 (mL/min) Final eGFR is calculated based on the CKD-EPI 2020 equation Sodium 10/03/2023 17:29:00 139 135-146 (m mol/L) Final Potassium 10/03/2023 17:29:00 4.1 3.5-5.1 (m mol/L) Final Cl 10/03/2023 17:29:00 103 98-107 (mm ol/L) Final CO2 10/03/2023 17:29:00 22 22-32 (mmo l/L) Final Anion gap 10/03/2023 17:29:00 14 7-15 (mmol /L) Final Glucose 10/03/2023 17:29:00 161 Above high normal 70 -120 (mg/dL) Final Calcium 10/03/2023 17:29:00 8.5 8.4-10.2 ( mg/dL) Final Performing Location [facility] - [address] [facility] [address] [place] [address]
--- OUTSIDE RECORDS SUMMARY | 2023-12-07 18:35 | External Medical Summary ---
Author Name Unknown Address Unknown Organization [facility] - [address] [place] [address] Laboratory Report Ordering Provider Test Date Status MIN,MAW 10/04/2023 06:20:00 Final Observation Date Value Abnormality Reference (Units ) Status Phosphate 10/04/2023 06:20:00 2.8 2.5-4.8 (m g/dL) Final Performing Location [facility] - [address] [place] [address]
--- OUTSIDE RECORDS SUMMARY | 2023-12-07 18:35 | External Medical Summary ---
Author Name Unknown Address Unknown Organization K1F:[facility] - [address] [place] [address] Laboratory Report Ordering Provider Test Date Status VIVIANE BECKER 10/04/2023 06:20:00 Final Observation Date Value Abnormality Reference (Units ) Status BUN 10/04/2023 06:20:00 57 Above high normal 6-20 (mg/dL) Final Creatinine 10/04/2023 06:20:00 1.4 Above high normal 0.5-1.0 (mg/dL) Final Glomerular filtration rate/1.73 sq M.predicted [Volume Rate/Area] in Serum, Plasma or Blood by Creatinine-based formula (CKD-EPI) 10/04/2023 06:20:00 45 Below low normal >=60 (mL/min) Final eGFR is calculated based on the CKD-EPI 2020 equation Sodium 10/04/2023 06:20:00 141 135-146 (m mol/L) Final Potassium 10/04/2023 06:20:00 3.5 3.5-5.1 (m mol/L) Final Cl 10/04/2023 06:20:00 104 98-107 (mm ol/L) Final CO2 10/04/2023 06:20:00 23 22-32 (mmo l/L) Final Anion gap 10/04/2023 06:20:00 14 7-15 (mmol /L) Final Glucose 10/04/2023 06:20:00 208 Above high normal 70 -120 (mg/dL) Final Calcium 10/04/2023 06:20:00 8.1 Below low normal 8.4 -10.2 (mg/dL) Final Performing Location [facility] - [address] [facility] [address] [place] [address]
--- OUTSIDE RECORDS SUMMARY | 2023-12-07 18:35 | External Medical Summary ---
Author Name Unknown Address Unknown Organization : Laboratory Report Ordering Provider Test Date Status CHECO SIMMONS 10/02/2023 18:19:46 Final Observation Date Value Abnormality Reference (Units ) Status Glucose Point of Care 10/02/2023 18:19:46 67 Below low normal 70-120 (mg/dL) Final Performing Location
--- OUTSIDE RECORDS SUMMARY | 2023-12-07 18:35 | External Medical Summary ---
Author Name Unknown Address Unknown Organization : Laboratory Report Ordering Provider Test Date Status NICKIE IRAHETA 10/04/2023 11:39:28 Final Observation Date Value Abnormality Reference (Units ) Status Glucose Point of Care 10/04/2023 11:39:28 142 Above high normal 70-120 (mg/dL) Final Performing Location
--- OUTSIDE RECORDS SUMMARY | 2023-12-07 18:35 | External Medical Summary ---
Author Name Unknown Address Unknown Organization K1F:[facility] - [address] [place] [address] Laboratory Report Ordering Provider Test Date Status CHECO SIMMONS 10/02/2023 06:13:00 Final Observation Date Value Abnormality Reference (Units ) Status Calcium.ionized [Moles/volume] in Serum or Plasma by Ion-selective membrane electrode (ISE) 10/02/2023 06:13:00 1.22 1.13-1.32 (mmol/L) Final This test was developed and its performance characteristics dtermined by [employer]. It has not been cleared or approved by the [place] Food and Drug Administration Performing Location LABORATORY [facility] - [address] [place] [address]
--- OUTSIDE RECORDS SUMMARY | 2023-12-07 18:35 | External Medical Summary ---
Author Name Unknown Address Unknown Organization : Laboratory Report Ordering Provider Test Date Status NICKIE IRAHETA 10/04/2023 07:46:36 Final Observation Date Value Abnormality Reference (Units ) Status Glucose Point of Care 10/04/2023 07:46:36 179 Above high normal 70-120 (mg/dL) Final Performing Location
--- OUTSIDE RECORDS SUMMARY | 2023-12-07 18:35 | External Medical Summary ---
Author Name Unknown Address Unknown Organization : Laboratory Report Ordering Provider Test Date Status CHECO SIMMONS 10/02/2023 06:45:31 Final Observation Date Value Abnormality Reference (Units ) Status Glucose Point of Care 10/02/2023 06:45:31 163 Above high normal 70-120 (mg/dL) Final Performing Location
--- OUTSIDE RECORDS SUMMARY | 2023-12-07 18:35 | External Medical Summary | Summary of Care ---
Author Name Unknown Organization [facility] Address [address] [place] [address] Phone [phone] Care Team Providers Care Cutter Head Sharpener Name Role Phone Evelyn Andrews MD Primary Care Prov ider Reason for Visit * Reason Comments Anxiety Encounter Details Date Type Department Care Team (Late st Contact Info) Description 10/03/2023 6:30 PM EDT [facility] [address] [place] [address] Alexis Serna MD [address] [place] [address] Adjustment disorder with other symptom* Allergies Active Allergy Reactions Criticality Noted Date Comments Amoxicillin Edema airway High 01/22/2003 Oxybutynin 03/25/2023 Mouth ulcers Sulfa Antibiotics Edema airway High 08/15/2006 documented as of this encounter (statuses as of 10/03/2023) Medications Medication Sig Dispensed Refills Start Date [...] mL 0 4 Suspended Additional Information Nystatin [id number] UNIT/GM External Cream APPLY TO AFFECTED AREA [...] 10 Tablet 5 4 Suspended Additional Information Xwiswduttd-SDGZ-Eyu feine 50-325-40 MG Oral Tablet (Fioricet)Indicatio ns:Migraine [...] as of this encounter (statuses as of 10/03/2023) Active Problems Problem Noted Date Diagnosed Date [...] as of this encounter (statuses as of 10/03/2023) Resolved Problems Problem Noted Date Diagnosed Date Resolved Date Old [place] (myocardial infarction) 03/01/2023 03/01/2023 Atherosclerosis of [place] co ronary artery without angina pectoris 02/08/2022 [...] malnutrition 09/28/2018 09/23/2021 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 SITE 05/14/200311/2022 documented as of this encounter (statuses as of 10/03/2023) Immunizations Name Administration Dates Next Due COVID-19 mRNA, LNP-s, No Pre serve, 2-Dose Series ([employer]) 02/16/2021,11/25/2020,11/01/2020 COVID-19, MRNA-LNP, 23-24, P F, 30 MCG/0.3 mL, 12 YRS AND ABOVE, IM ([employer]) 04/10/2023 Covid-19, Mrna, Lnp-s, Pf, B ivalent, 30 Mcg, IM, 12 yrs and above ([employer]) 04/12/2022 Pneumococcal Conjugate Vacci ne, 20-valent ([id number]) 12/10/2021 Pneumococcal Polysaccharide PPV23 (Pneumovax) 07/21/2009 Seasonal [...] Progress Notes * Alexis Serna MD - 10/03/2023 6:43 PM EDT Patient currently hospitalized on medical floor due to failure to thrive, with multiple medical complications. Connected briefly with patient to inform her that would be unable to proceed with today's appointment due to her inpatient status. Patient expressed understanding. She endorsed some anxiety, encouraged her to speak with primary team for potential psych consult. Patient instructed to follow-up once she is discharged. documented in this encounter Plan of Treatment Upcoming Encounters Date Type Department Care Team (Late st Contact Info) Description 10/09/2023 10:45 AM EDT Immunization/Injec tion [facility]emat[facility] [place] [facility] [phone] [facility] [address] 10/17/2023 3:20 PM EDT Office Visit Gastroenterology, [facility] 132 [facility] [place] [address] Milind Yadav MD 132 [facility] [place] [address] 10/23/2023 9:20 AM EDT Office Visit Neurology [facility] 200 [facility] [place] [address] Aris Mohr MD 200 [facility] [place] [address] 12/04/2023 3:45 PM EDT Office Visit Urology, [facility] 132 [facility] [place] [address] Christopher Almonte MD [address] [place] [address] Health Maintenance Due Date Last Done Comments HPV/Co-Test 1993 Cologuard 2008 Fecal Occult Blood Test 2008 Sigmoidoscopy 2008 Mammogram 08/18/2011 08/18/2010, 08/11/2009 Cervical Cancer Screening 09/27/2014 Pap Smear 09/27/2014 09/28/2011, 11/2010, 07/07/2010, Additional history exists Depression, Most Recent Score >= 10 (will fire each visit until score < 10) 05/23/2023 05/22/2023 Colonoscopy 12/11/2023 12/10/2013, 11/24, 01/15/2007 Colorectal Cancer Screening 12/11/2023 GFR 04/03/2024 10/03/2023, 02/2024, 10/02/2023, Additional history exists Albumin/Creatinine Ratio 08/23/2024 024, 08/23/2022, 09/20/2021 CKD HGB USE SMARTSET 18314 10/02/202410/02, 10/02/2023, 10/01/2023, Additional history exists CKD PHOS USE SMARTSET 98205 10/02/202402/2024, 10/03/2023, 10/02/2023, Additional history exists DTaP,Tdap,and Td Vaccines (2 [...] this encounter Medical Devices Implanted Type Area Beadworker Device Identifier Shelf Expiration Date Model / Serial / Lot Stent Axios 20mm - [id number] Implanted:Qty: 1 on 01/04/2021 by Leyda Garcia MD at OR [facility] N/A: Stomach [employer] : ENDOSCOPY 11/20/2021 [id number] / / [id number] documented as of this encounter Visit Diagnoses Diagnosis Adjustment disorder with other symptom- Primary documented in this encounter Advance Directives Documents on File Type Date Recorded Patient Production Boring Machine Operator Expl anation POLST 01/03/2022 [place] OR [facility] FOR LIFE-SUSTAINING TREATMENT Latest Code Status [...] Other - (no specific identity) Health Care Production Boring Machine Operator (appointed verbally by patient or by statute hierarchy) Rowdy Hogue Sibling Health Care Production Boring Machine Operator (appointed verbally by patient or by statute hierarchy) Care Teams Cutter Head Sharpener Relationship Specialty Start Date End Date Evelyn Andrews MD [address] [place] [address] [place] [address] PCP - General Family Medicine 05/04/18 documented as of this encounter
--- OUTSIDE RECORDS SUMMARY | 2023-12-07 18:35 | External Medical Summary ---
Author Name Unknown Address Unknown Organization K1F:[facility] - [address] [place] [address] Laboratory Report Ordering Provider Test Date Status VIVIANE BECKER 10/03/2023 04:53:00 Final Observation Date Value Abnormality Reference (Units ) Status BUN 10/03/2023 04:53:00 67 Above high normal 6-20 (mg/dL) Final Creatinine 10/03/2023 04:53:00 1.7 Above high normal 0.5-1.0 (mg/dL) Final Glomerular filtration rate/1.73 sq M.predicted [Volume Rate/Area] in Serum, Plasma or Blood by Creatinine-based formula (CKD-EPI) 10/03/2023 04:53:00 35 Below low normal >=60 (mL/min) Final eGFR is calculated based on the CKD-EPI 2020 equation Sodium 10/03/2023 04:53:00 143 135-146 (m mol/L) Final Potassium 10/03/2023 04:53:00 3.3 Below low normal 3.5 -5.1 (mmol/L) Final Cl 10/03/2023 04:53:00 105 98-107 (mm ol/L) Final CO2 10/03/2023 04:53:00 22 22-32 (mmo l/L) Final Anion gap 10/03/2023 04:53:00 16 Above high normal 7- 15 (mmol/L) Final Glucose 10/03/2023 04:53:00 101 70-120 (mg /dL) Final Calcium 10/03/2023 04:53:00 8.7 8.4-10.2 ( mg/dL) Final Performing Location [facility] - [address] [facility] [address] [place] [address]
--- OUTSIDE RECORDS SUMMARY | 2023-12-07 18:35 | External Medical Summary | Summary of Care ---
Author Name Unknown Organization [facility] Address [address] [place] [address] Phone [phone] Care Team Providers Care Cloth Stretcher Name Role Phone Evelyn Andrews MD Primary Care Prov ider Reason for Visit * Reason Onset Date Comments Appointment 09/29/2023 Encounter Details Date Type Department Care Team (Late st Contact Info) Description 09/29/2023 Telephone Neurology [facility] [address] [place] [address] Aris Mohr MD [address] [place] [address] Appointment Allergies Active Allergy Reactions Criticality Noted [...] mL 0 4 Suspended Additional Information Nystatin 581005 UNIT/GM External Cream APPLY TO AFFECTED AREA [...] 10 Tablet 5 4 Suspended Additional Information Nbqdprkxum-UBSG-Zar feine 50-325-40 MG Oral Tablet (Fioricet)Indicatio ns:Migraine [...] Noted Date Diagnosed Date Resolved Date Old [place] (myocardial infarction) 03/01/2023 03/01/2023 Atherosclerosis of [place] co ronary artery without angina pectoris 02/08/2022 [...] malnutrition 09/28/2018 09/23/2021 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/2021 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 02/06/2017 05/02/2018 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 02/06/2017 07/09/2019 Iron deficiency anemia 06/28/201109/20 Overview: ICD-10 update of inactive term Iron deficiency anemia 06/28/201109/20 Overview: ICD-10 update of inactive term Iron deficiency anemia pat paulino to inadequate dietary iron intake 09/26/2008 3 Infected postoperative seroma 06/02/2003 09/20/2012 PANNICULITIS, [facility] SITE 05/14/200311/2022 documented as of this encounter (statuses as of 10/03/2023) Immunizations Name Administration Dates Next Due COVID-19 mRNA, LNP-s, No Pre serve, 2-Dose Series (Globili) 02/16/2021,11/25/2020,11/01/2020 COVID-19, MRNA-LNP, 23-24, P F, 30 MCG/0.3 mL, 12 YRS AND ABOVE, IM (Dr. [facility]ATTOFF[facility]) 04/10/2023 Covid-19, Mrna, Lnp-s, Pf, B ivalent, 30 Mcg, IM, 12 yrs and above (Globili) 04/12/2022 Pneumococcal Conjugate Vacci ne, 20-valent ([id number]) 12/10/2021 Pneumococcal Polysaccharide PPV23 (Pneumovax) 07/21/2009 Seasonal [...] Telephone Encounter - Shannon Robles OSA - 10/03/2023 9:55 AM EDT scheduled * Telephone Encounter - Cleopatra Britt LPN - 09/29/2023 12:31 PM EDT Patient had to cancel appt for 10/01 due to being admitted. She is asking for someone to call her to reschedule. Please assist patient, thank you. documented in this encounter Plan of Treatment Upcoming Encounters Date Type Department Care Team (Late st Contact Info) Description 10/03/2023 6:30 PM EDT Telemedicine Psychiatry, [facility] [address] [place] [address] Alexis Serna MD [address] [place] [phone] 10/09/2023 10:45 AM EDT Immunization/Injection Hematology/Oncology Treatment, [place] 200 [facility] [place] [phone] Nurse, Med 200 [place] [address] 10/17/2023 3:20 PM EDT Office Visit Gastroenterology, [facility] [address] [facility] [place] [address] Milind Yadav MD 132 [place] [address] 10/23/2023 9:20 AM EDT Office Visit Neurology [facility] 200 [place] [address] Aris Mohr MD [address] [place] [address] 12/04/2023 3:45 PM EDT Office Visit Urology, [facility] 132 [place] [address] Christopher Almonte MD [address] [address] [place] [address] Health Maintenance Due Date Last Done Comments HPV/Co-Test 1993 Cologuard 2008 Fecal Occult Blood Test 2008 Sigmoidoscopy 2008 Mammogram 08/18/2011 08/18/2010, 08/11/2009 Cervical Cancer Screening 09/27/2014 Pap Smear 09/27/2014 09/28/2011, 0711/2010, 07/07/2010, Additional history exists Depression, Most Recent Score >= 10 (will fire each visit until score < 10) 05/23/2023 05/22/2023 Colonoscopy 12/11/2023 12/10/2013, 11/24, 01/15/2007 Colorectal Cancer Screening 12/11/2023 GFR 04/03/2024 10/03/2023, 01/2024, 10/01/2023, Additional history exists Albumin/Creatinine Ratio 08/23/2024 024, 08/23/2022, 09/20/2021 CKD HGB USE SMARTSET 56595 10/02/202410/02, 10/02/2023, 10/01/2023, Additional history exists CKD PHOS USE SMARTSET 57741 10/02/20240 02/2024, 10/02/2023, 10/01/2023, Additional history exists DTaP,Tdap,and Td Vaccines (2 [...] this encounter Medical Devices Implanted Type Area Career Agent Device Identifier Shelf Expiration Date Model / Serial / Lot Stent Axios 20mm - [id number] Implanted:Qty: 1 on 01/04/2021 by Leyda Garcia MD at OR [facility] N/A: Stomach [employer] : ENDOSCOPY 11/20/2021 [id number] / / [id number] documented as of this encounter Additional Health Concerns Infection Onset Date Last Indicated Resolved Time Respiratory Rule-Out 10/01/2023 10/01/2023 024 4:57 AM EDT COVID-19 Rule-Out 10/01/2023 10/01/2023 10/01/2023 4:57 AM EDT documented as of this encounter Advance Directives Documents on File Type Date Recorded Patient Line Rider Expl anation POLST 01/03/2022 [place] [facility] FOR LIFE-SUSTAINING TREATMENT Latest Code [...] Other - (no specific identity) Health Care Line Rider (appointed verbally by patient or by statute hierarchy) Rowdy Kraus Health Care Line Rider (appointed verbally by patient or by statute hierarchy) Care Teams Cloth Stretcher Relationship Specialty Start Date End Date Evelyn Andrews MD [address] [place] [address] [place] [address] PCP - General Family Medicine 05/04/18 documented as of this encounter
--- OUTSIDE RECORDS SUMMARY | 2023-12-07 18:35 | External Medical Summary ---
Author Name Unknown Address Unknown Organization : Laboratory Report Ordering Provider Test Date Status CHECO SIMMONS 10/02/2023 19:09:58 Final Observation Date Value Abnormality Reference (Units ) Status Glucose Point of Care 10/02/2023 19:09:58 98 70-120 (mg/dL) Final Performing Location
--- OUTSIDE RECORDS SUMMARY | 2023-12-07 18:35 | External Medical Summary ---
Author Name Unknown Address Unknown Organization : Laboratory Report Ordering Provider Test Date Status CHECO SIMMONS 10/03/2023 07:18:27 Final Observation Date Value Abnormality Reference (Units ) Status Glucose Point of Care 10/03/2023 07:18:27 184 Above high normal 70-120 (mg/dL) Final Performing Location
--- OUTSIDE RECORDS SUMMARY | 2023-12-07 18:35 | External Medical Summary ---
Author Name Unknown Address Unknown Organization K1F:[facility]ATORY [facility] - [address] [place] [address] Laboratory Report Ordering Provider Test Date Status MIN,MAW 10/03/2023 04:53:00 Final Observation Date Value Abnormality Reference (Units ) Status Magnesium 10/03/2023 04:53:00 1.6 1.5-2.6 (m g/dL) Final Performing Location [facility] - [address] [place] [address]
--- OUTSIDE RECORDS SUMMARY | 2023-12-07 18:35 | External Medical Summary ---
Author Name Unknown Address Unknown Organization K1F:LABORATORY [facility] - [address] [place] [address] Laboratory Report Ordering Provider Test Date Status TROYTRINITYLIONEL 10/04/2023 06:20:00 Final Observation Date Value Abnormality Reference (Units ) Status WBC, Total 10/04/2023 06:20:00 11.43 Above high normal 4.00-10.80 (K/uL) Final RBC 10/04/2023 06:20:00 2.76 3.85-5.15 (M/uL) Final Hemoglobin 10/04/2023 06:20:00 8.0 Below low normal 12.0-15.3 (g/dL) Final HCT 10/04/2023 06:20:00 25.6 Below low normal 36.0-45.2 (%) Final MCV 10/04/2023 06:20:00 92.8 81.5-97.5 (fL) Final MCH 10/04/2023 06:20:00 29.0 27.0-34.0 (pg) Final MCHC 10/04/2023 06:20:00 31.3 32.0-36.0 (g/dL) Final RDW 10/04/2023 06:20:00 17.0 11.5-15.5 (%) Final Platelets 10/04/2023 06:20:00 293 140-400 (K/uL) Final MPV 10/04/2023 06:20:00 11.9 6.6-11.1 (fL) Final Nucleated erythrocytes/100 leukocytes [Ratio] in Blood by Automated count 10/04/2023 06:20:00 0 <=0 (/100 WBCs) Final Performing Location LABORATORY [facility] - [address] [place] [address]
--- OUTSIDE RECORDS SUMMARY | 2023-12-07 18:35 | External Medical Summary ---
Author Name Unknown Address Unknown Organization K1F:LABORATORY [facility] - [address] [place] [address] Laboratory Report Ordering Provider Test Date Status CHECO SIMMONS 10/02/2023 06:13:00 Final Less than 0.5 ng/mL: Low ris k for progression to sepsis. Review patients condition for localized infections.

0.5 to 2.0 ng/mL: Intermediate risk for progresion to sepsis. Review underlying conditions. Recommend repeat PCT after 6 hours has elapsed.

Greater than 2.0 ng/mL: high risk for progression to sepsis unless other causes are known. Observation Date Value Abnormality Reference (Units ) Status Procalcitonin [Mass/volume] in Serum or Plasma by Immunoassay 10/02/2023 06:13:00 0.55 Above high normal <0.10 (ng/mL) Final Performing Location LABORATORY [facility] - [address] [place] [address]
--- OUTSIDE RECORDS SUMMARY | 2023-12-07 18:35 | External Medical Summary ---
Author Name Unknown Address Unknown Organization K01:LABORATORY [facility] - [address] [place] [address] Laboratory Report Ordering Provider Test Date Status CHECO SIMMONS 10/02/2023 06:13:00 Final Observation Date Value Abnormality Reference (Units ) Status Vitamin B12 10/02/2023 06:13:00 213 094-5223 (pg/mL) Final Performing Location LABORATORY [facility] - [address] [place] [address]
--- OUTSIDE RECORDS SUMMARY | 2023-12-07 18:35 | External Medical Summary ---
Author Name Unknown Address Unknown Organization : Laboratory Report Ordering Provider Test Date Status CHECO SIMMONS 10/02/2023 21:28:00 Final Observation Date Value Abnormality Reference (Units ) Status Glucose Point of Care 10/02/2023 21:28:00 78 70-120 (mg/dL) Final Performing Location
--- OUTSIDE RECORDS SUMMARY | 2023-12-07 18:35 | External Medical Summary ---
Author Name Unknown Address Unknown Organization : Laboratory Report Ordering Provider Test Date Status CHECO SIMMONS 10/03/2023 04:53:00 Final Observation Date Value Abnormality Reference (Units ) Status MANGANESE, BLOOD 10/03/2023 04:53:00 11.6 4.2 -16.5 (mcg/L) Final This test was developed and its analytical performance
characteristics have been determined by [employer]. It has not been cleared or approved by the
FDA. This assay has been validated pursuant to the CLIA
regulations and is used for clinical purposes.
Test performed by:
[facility]
[address] [facility]
[place] [address]

[phone]
Election Watcher: Chris Lazcano M.D.
Test Reported by Naveen Valentin,
[facility],
[address] [place], [place]
Armando Chanel M.D., Ph.D., Director of Laboratories
, CLIA [id number] Performing Location
--- OUTSIDE RECORDS SUMMARY | 2023-12-07 18:36 | External Medical Summary ---
Author Name Unknown Address Unknown Organization K1F:LABORATORY [facility] - [address] [place] [address] Laboratory Report Ordering Provider Test Date Status VIVIANE BECKER 09/29/2023 04:18:00 Final Observation Date Value Abnormality Reference (Units ) Status BUN 09/29/2023 04:18:00 91 Above high normal 6-20 (mg/dL) Final Creatinine 09/29/2023 04:18:00 1.9 Above high normal 0.5-1.0 (mg/dL) Final Glomerular filtration rate/1.73 sq M.predicted [Volume Rate/Area] in Serum, Plasma or Blood by Creatinine-based formula (CKD-EPI) 09/29/2023 04:18:00 29 Below low normal >=60 (mL/min) Final eGFR is calculated based on the CKD-EPI 2020 equation Sodium 09/29/2023 04:18:00 136 135-146 (m mol/L) Final Potassium 09/29/2023 04:18:00 4.8 3.5-5.1 (m mol/L) Final Cl 09/29/2023 04:18:00 106 98-107 (mm ol/L) Final CO2 09/29/2023 04:18:00 15 Below low normal 22- 32 (mmol/L) Final Anion gap 09/29/2023 04:18:00 15 7-15 (mmol /L) Final Glucose 09/29/2023 04:18:00 139 Above high normal 70 -120 (mg/dL) Final Calcium 09/29/2023 04:18:00 8.1 Below low normal 8.4 -10.2 (mg/dL) Final Performing Location LABORATORY [facility] - [address] [place] [address]
--- OUTSIDE RECORDS SUMMARY | 2023-12-07 18:36 | External Medical Summary ---
Author Name Unknown Address Unknown Organization : Laboratory Report Ordering Provider Test Date Status JOSE RUSHING 09/29/2023 11:54:21 Final Observation Date Value Abnormality Reference (Units ) Status Glucose Point of Care 09/29/2023 11:54:21 154 Above high normal 70-120 (mg/dL) Final Performing Location
--- OUTSIDE RECORDS SUMMARY | 2023-12-07 18:36 | External Medical Summary ---
Author Name Unknown Address Unknown Organization K01:[facility] - [address] [place] [address] Laboratory Report Ordering Provider Test Date Status CEHCO SIMMONS 10/02/2023 06:13:00 Final Observation Date Value Abnormality Reference (Units ) Status Iron 10/02/2023 06:13:00 10 Below low normal 33-151 (ug/dL) Final Iron-binding capacity 10/02/2023 06:13:00 229 Below low normal 250-425 (ug/dL) Final Transferrin Sat % 10/02/2023 06:13:00 4 Below low normal 15-55 (%) Final Performing Location [facility] - [address] [place] [address]
--- OUTSIDE RECORDS SUMMARY | 2023-12-07 18:36 | External Medical Summary | Summary of Care ---
Author Name Unknown Organization [facility] Address [address] [place] [address] Phone [phone] Care Team Providers Care Lamp Tester And Inspector Name Role Phone Evelyn Andrews MD Primary Care Prov ider Reason for Visit * Reason Onset Date Comments Advice 09/29/2023 Boogie Ortiz MD Encounter Details Date Type Department Care Team (Late st Contact Info) Description 09/29/2023 Telephone Family Medicine [address] [address] Services, Scheduling [address] [place] [address] Advice (Boogie Ortiz MD) Allergies Active Allergy Reactions Criticality Noted Date Comments Amoxicillin Edema airway High 01/22/2003 Oxybutynin 03/25/2023 Mouth ulcers Sulfa Antibiotics Edema airway High 08/15/2006 documented as of this encounter (statuses as of 09/29/2023) Medications Medication Sig Dispensed Refills Start Date [...] mL 0 4 Suspended Additional Information Nystatin 475016 UNIT/GM External Cream APPLY TO AFFECTED AREA [...] 10 Tablet 5 4 Suspended Additional Information Qikguhawbv-IWSX-Gcu feine 50-325-40 MG Oral Tablet (Fioricet)Indicatio ns:Migraine [...] as of this encounter (statuses as of 09/29/2023) Active Problems Problem Noted Date Diagnosed Date Adjustment disorder 09/22/2023 Tobacco abuse 09/20/2023 Fall [...] USE AGREEMENT 07/17/2017 Intestinal postoperative nonabsorption 1 Other vitamin B12 deficiency anemia 09/26/2008 HYPERPARATHYROIDISM SECONDARY, NON-RENAL 007 ADVANCE DIRECTIVE INFORMATION 11/15/2006 Overview: No, Advance Directive brochure offered , patient declined. 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/2021 SURGICAL ASSISTANT 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 02/06/2017 05/02/2018 SURGICAL ASSISTANT 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 02/06/2017 07/09/2019 Iron deficiency anemia 06/28/201109/20 Overview: ICD-10 update of inactive term Iron deficiency anemia 06/28/201109/20 Overview: ICD-10 update of inactive term Iron deficiency anemia pat paulino to inadequate dietary iron intake 09/26/2008 3 Infected postoperative seroma 06/02/2003 09/20/2012 PANNICULITIS, UNSP SITE 05/14/200311/2022 documented as of this encounter (statuses as of 09/29/2023) Immunizations Name Administration Dates Next Due COVID-19 mRNA, LNP-s, No Pre serve, 2-Dose Series ([employer]) 02/16/2021,11/25/2020,11/01/2020 COVID-19, MRNA-LNP, 23-24, P F, 30 MCG/0.3 mL, 12 YRS AND ABOVE, IM (PFIZER-Comirnaty) 04/10/2023 Covid-19, Mrna, Lnp-s, Pf, B ivalent, 30 Mcg, IM, 12 yrs and above (Pfizer) 04/12/2022 Pneumococcal Conjugate Vacci ne, 20-valent ([id number]) 12/10/2021 Pneumococcal Polysaccharide PPV23 (Pneumovax) 07/21/2009 Seasonal [...] Miscellaneous Notes * Telephone Encounter - Elana Talbert OSA - 09/29/2023 11:27 AM EDT Spoke to pt she stated she will be at the hospital at least till Monday and she said they would change her dressing at the hospital. She asked to schedule the follow dressing change on 10-08 * Telephone Encounter - Jordyn Dobbs RN - 09/29/2023 10:06 AM EDT Patient admitted at [facility], plan to discharge today. Dressing changed 09/27/23 per documentation. Patient will be due 10/04/23. Scheduling: please call patient to schedule 15 min appt "dressing change" (Dr Vic Wilkerson) for 10/04/23. Thanks! * Telephone Encounter - Akira Styles OSA - 09/29/2023 9:56 AM EDT Patient called in requesting an appointment for a dressing change. documented in this encounter Plan of Treatment Upcoming Encounters Date Type Department Care Team (Late st Contact Info) Description 10/02/2023 9:20 AM EDT Office Visit Neurology [facility] [address] [place] [address] Aris Mohr MD 200 [facility] [place] [address] 10/03/2023 6:30 PM EDT Telemedicine Psychiatry, [place] [address] [place] [address] Alexis Serna MD [address] [place] [address] 10/09/2023 10:45 AM EDT Immunization/Injection [facility] [place] [facility] [address] Nurse, Med 200 [facility] [place] [address] 10/17/2023 3:20 PM EDT Office Visit Gastroenterology, [facility] [address] [place] [address] Milind Yadav MD [address] [place] [address] 12/04/2023 3:45 PM EDT Office Visit Urology, [facility] [address] [place] [address] Christopher Almonte MD [address] [facility] [address] [place] [address] Health Maintenance [...] 11/24, 01/15/2007 Colorectal Cancer Screening 12/11/2023 GFR 03/30/2024 09/29/2023, 0 09/2023, 09/27/2023, Additional history exists Albumin/Creatinine Ratio 08/23/2024 024, 08/23/2022, 09/20/2021 CKD HGB USE SMARTSET 53635 09/20/202409/20, 06/12/2023, 03/13/2023, Additional history exists CKD PHOS USE SMARTSET 30552 09/28/2024 040 10/2023, 09/28/2023, 09/27/2023, Additional history exists DTaP,Tdap,and Td Vaccines (2 [...] this encounter Medical Devices Implanted Type Area Supervisor Cytology Device Identifier Shelf Expiration Date Model / Serial / Lot Stent Axios 20mm - [id number] Implanted:Qty: 1 on 01/04/2021 by Leyda Garcia MD at OR [facility] N/A: Stomach [employer] : ENDOSCOPY 11/20/2021 [id number] / / [id number] documented as of this encounter Advance Directives Documents on File Type Date Recorded Patient [employer] Expl anation POLST 01/03/2022 [place] OR [facility] FOR LIFE-SUSTAINING TREATMENT Latest Code Status [...] Name Relationship Healthcare Agent Relationship Communication Ariella Chavezveroluis Other - (no specific identity) Health Care [employer] (appointed verbally by patient or by statute hierarchy) Rowdy Kraus Health Care [employer] (appointed verbally by patient or by statute hierarchy) Care Teams Lamp Tester And Inspector Relationship Specialty Start Date End Date Evelyn Andrews MD [address] [place] [address] [place] [phone] PCP - General Family Medicine 05/04/18 documented as of this encounter
--- OUTSIDE RECORDS SUMMARY | 2023-12-07 18:36 | External Medical Summary ---
Author Name Unknown Address Unknown Organization : Laboratory Report Ordering Provider Test Date Status JOSE RUSHING 09/29/2023 05:56:12 Final Observation Date Value Abnormality Reference (Units ) Status Glucose Point of Care 09/29/2023 05:56:12 95 70-120 (mg/dL) Final Performing Location
--- OUTSIDE RECORDS SUMMARY | 2023-12-07 18:36 | External Medical Summary ---
Author Name Unknown Address Unknown Organization K01:LABORATORY [facility] - [address] [place] [address] Laboratory Report Ordering Provider Test Date Status CHECO SIMMONS 10/02/2023 06:13:00 Final Observation Date Value Abnormality Reference (Units ) Status Folic Acid 10/02/2023 06:13:00 13.9 >4.5 (ng/ mL) Final Performing Location LAB[facility]ATORY [facility] - [address] [place] [address]
--- OUTSIDE RECORDS SUMMARY | 2023-12-07 18:36 | External Medical Summary ---
Author Name Unknown Address Unknown Organization : Laboratory Report Ordering Provider Test Date Status CHECO SIMMONS 10/02/2023 00:26:34 Final Observation Date Value Abnormality Reference (Units ) Status Glucose Point of Care 10/02/2023 00:26:34 159 Above high normal 70-120 (mg/dL) Final Performing Location
--- OUTSIDE RECORDS SUMMARY | 2023-12-07 18:36 | External Medical Summary ---
Author Name Unknown Address Unknown Organization K1F:LABORATORY [facility] - [address] [place] [address] [place] [address] Laboratory Report Ordering Provider Test Date Status HAJALISYCHARISSE 10/01/2023 04:39:00 Final Observation Date Value Abnormality Reference (Units ) Status Bacteria identified in Specimen by Culture 10/01/2023 04:39:00 No growth Final Test: Culture, Blood (Site 2 )
Specimen Source: Blood, Venous
Specimen Type: Blood
Specimen Date: 10/01/2023 4:39 AM
Result Date: 10/06/2023 5:01 AM
Result Status: Final result
Resulting Lab: LABORATORY [facility]
[address] [place] [address]
[place] [address]

CULTURE

No growth

null Performing Location LABORATORY [facility] - [address] [place], [place] [address] [address]
--- OUTSIDE RECORDS SUMMARY | 2023-12-07 18:36 | External Medical Summary ---
Author Name Unknown Address Unknown Organization K1F:LABORATORY [facility] - [address] [place] [address] Laboratory Report Ordering Provider Test Date Status CHECO SIMMONS 10/01/2023 04:39:00 Final Exclude Heart Failure: <300 pg/mL
Diagnose Heart Failure:
Age <50 yr: >450 pg/mL
50-75 yr: >900 pg/mL
>75 yr: >1800 pg/mL
GFR is 30-59 mL/min: >1200 pg/mL or Age- adjusted values
GFR <30 mL/min: do not use, not reliable

Prognostic threshold: 1000 pg/mL Observation Date Value Abnormality Reference (Units ) Status BNP, Pro-hormone 10/01/2023 04:39:00 6053 Above high no rmal <300 (pg/mL) Final Performing Location LABORATORY [facility] - [address] [place] [address]
--- OUTSIDE RECORDS SUMMARY | 2023-12-07 18:36 | External Medical Summary ---
Author Name Unknown Address Unknown Organization : Laboratory Report Ordering Provider Test Date Status CHECO SIMMONS 10/01/2023 11:22:17 Final Observation Date Value Abnormality Reference (Units ) Status Glucose Point of Care 10/01/2023 11:22:17 162 Above high normal 70-120 (mg/dL) Final Performing Location
--- OUTSIDE RECORDS SUMMARY | 2023-12-07 18:36 | External Medical Summary ---
Author Name Unknown Address Unknown Organization : Laboratory Report Ordering Provider Test Date Status JOSE RUSHING 10/01/2023 06:15:41 Final Observation Date Value Abnormality Reference (Units ) Status Glucose Point of Care 10/01/2023 06:15:41 135 Above high normal 70-120 (mg/dL) Final Performing Location
--- OUTSIDE RECORDS SUMMARY | 2023-12-07 18:36 | External Medical Summary ---
Author Name Unknown Address Unknown Organization : Laboratory Report Ordering Provider Test Date Status JOSE RUSHING 09/29/2023 00:06:46 Final Observation Date Value Abnormality Reference (Units ) Status Glucose Point of Care 09/29/2023 00:06:46 147 Above high normal 70-120 (mg/dL) Final Performing Location
--- OUTSIDE RECORDS SUMMARY | 2023-12-07 18:36 | External Medical Summary ---
Author Name Unknown Address Unknown Organization K1F:LABORATORY [facility] - [address] [place] [address] Laboratory Report Ordering Provider Test Date Status SONG SMYTH 10/01/2023 07:36:00 Final Observation Date Value Abnormality Reference (Units ) Status ABO 10/01/2023 07:36:00 A Final RH 10/01/2023 07:36:00 Positive Final RED BLOOD CELL ANTIBODY SCREEN 10/01/2023 07:36:00 Negative Final SPECIMEN EXPIRATION DATE 10/01/2023 07:36:00 10/04/2023 23:59 Final Performing Location LABORATORY [facility] - [address] [place] [address]
--- OUTSIDE RECORDS SUMMARY | 2023-12-07 18:36 | External Medical Summary ---
Author Name Unknown Address Unknown Organization : Laboratory Report Ordering Provider Test Date Status JOSE RUSHING 09/30/2023 11:58:45 Final Observation Date Value Abnormality Reference (Units ) Status Glucose Point of Care 09/30/2023 11:58:45 99 70-120 (mg/dL) Final Performing Location
--- OUTSIDE RECORDS SUMMARY | 2023-12-07 18:36 | External Medical Summary ---
Author Name Unknown Address Unknown Organization K1F:LABORATORY [facility] - [address] [place] [address] Laboratory Report Ordering Provider Test Date Status CAROLINA,YESICA 10/01/2023 00:07:00 Final Observation Date Value Abnormality Reference (Units ) Status Troponin T 10/01/2023 00:07:00 41 Above high normal < =14 (ng/L) Final Performing Location LABORATORY [facility] - [address] [place] [address]
--- OUTSIDE RECORDS SUMMARY | 2023-12-07 18:36 | External Medical Summary ---
Author Name Unknown Address Unknown Organization K1F:LABORATORY [facility] - [address] [place] [address] Laboratory Report Ordering Provider Test Date Status YESICA FIGUEROA 10/01/2023 07:36:00 Final Nursing to adjust this time to draw post transfusion Observation Date Value Abnormality Reference (Units ) Status WBC, Total 10/01/2023 07:36:00 17.02 Above high normal 4.00-10.80 (K/uL) Final RBC 10/01/2023 07:36:00 2.27 3.85-5.15 (M/uL) Final Hemoglobin 10/01/2023 07:36:00 7.2 Below low normal 12.0-15.3 (g/dL) Final HCT 10/01/2023 07:36:00 23.0 Below low normal 36.0-45.2 (%) Final MCV 10/01/2023 07:36:00 101.3 81.5-97.5 (fL) Final MCH 10/01/2023 07:36:00 31.7 27.0-34.0 (pg) Final MCHC 10/01/2023 07:36:00 31.3 32.0-36.0 (g/dL) Final RDW 10/01/2023 07:36:00 14.2 11.5-15.5 (%) Final Platelets 10/01/2023 07:36:00 289 140-400 (K/uL) Final MPV 10/01/2023 07:36:00 11.8 6.6-11.1 (fL) Final Nucleated erythrocytes/100 leukocytes [Ratio] in Blood by Automated count 10/01/2023 07:36:00 0 <=0 (/100 WBCs) Final Performing Location LABORATORY [facility] - [address] [place] [address]
--- OUTSIDE RECORDS SUMMARY | 2023-12-07 18:36 | External Medical Summary ---
Author Name Unknown Address Unknown Organization K1F:LABORATORY [facility] - [address] [place] [address] Laboratory Report Ordering Provider Test Date Status CHRISTIANO BECKERW 10/02/2023 06:13:00 Final Observation Date Value Abnormality Reference (Units ) Status BUN 10/02/2023 06:13:00 71 Above high normal 6-20 (mg/dL) Final Creatinine 10/02/2023 06:13:00 1.5 Above high normal 0.5-1.0 (mg/dL) Final Glomerular filtration rate/1.73 sq M.predicted [Volume Rate/Area] in Serum, Plasma or Blood by Creatinine-based formula (CKD-EPI) 10/02/2023 06:13:00 40 Below low normal >=60 (mL/min) Final eGFR is calculated based on the CKD-EPI 2020 equation Sodium 10/02/2023 06:13:00 139 135-146 (m mol/L) Final Potassium 10/02/2023 06:13:00 3.6 3.5-5.1 (m mol/L) Final Cl 10/02/2023 06:13:00 104 98-107 (mm ol/L) Final CO2 10/02/2023 06:13:00 18 Below low normal 22- 32 (mmol/L) Final Anion gap 10/02/2023 06:13:00 17 Above high normal 7- 15 (mmol/L) Final Glucose 10/02/2023 06:13:00 172 Above high normal 70 -120 (mg/dL) Final Calcium 10/02/2023 06:13:00 8.3 Below low normal 8.4 -10.2 (mg/dL) Final Performing Location LABORATORY [facility] - [address] [facility] [address] [place] [address]
--- OUTSIDE RECORDS SUMMARY | 2023-12-07 18:36 | External Medical Summary ---
Author Name Unknown Address Unknown Organization K1F:LABORATORY [facility] - [address] [place] [address] Laboratory Report Ordering Provider Test Date Status AMANDA AGUILAR 10/01/2023 05:11:50 Final Observation Date Value Abnormality Reference (Units ) Status Body temperature 10/01/2023 05:11:50 37.0 (C) Final pH of Arterial blood 10/01/2023 05:11:50 7.343 Below low normal 7.350-7.450 (units) Final Carbon dioxide [Partial pressure] in Arterial blood 10/01/2023 05:11:50 32.2 Below low normal 35.0-45.0 (mmHg) Final Oxygen [Partial pressure] in Arterial blood 10/01/2023 05:11:50 80.2 75.0-100.0 (mmHg) Final Base excess, Arterial 10/01/2023 05:11:50 -7.5 Below low normal -2.0-2.0 (mmol/L) Final Hemoglobin [Mass/volume] in Blood by Oximetry 10/01/2023 05:11:50 7.1 Below low normal 12.0-15.3 (g/dL) Final Oxyhemoglobin, Arterial (FO2HB) 10/01/2023 05:11:50 90.0 Below low normal 94.0-99.0 (% total Hgb) Final Carboxyhemoglobin 10/01/2023 05:11:50 0.7 <=1.5 (% total Hgb) Final Smokers: 0-9.0 % Methemoglobin 10/01/2023 05:11:50 2.7 Above high normal <=1.5 (% total Hgb) Final Deoxyhemoglobin/Hemog lobin.total in Arterial blood 10/01/2023 05:11:50 6.6 Above high normal 0.0-5.0 (% total Hgb) Final Oxygen content in Arterial blood 10/01/2023 05:11:50 9.2 Below low normal 15.0-24.0 (%vol) Final Oxygen/Total gas setting [Volume Fraction] Ventilator 10/01/2023 05:11:50 Not Provided (%) Final O2 FLOW, ARTERIAL - [facility] 10/01/2023 05:11:50 4 (L/min) Final Bicarbonate, Venous, POC (i-STAT) 10/01/2023 05:11:50 17.0 Below low normal 23.0-31.0 (mmol/L) Final Performing Location LABORATORY [facility] - [address] [place] [address]
--- OUTSIDE RECORDS SUMMARY | 2023-12-07 18:36 | External Medical Summary ---
Author Name Unknown Address Unknown Organization : Laboratory Report Ordering Provider Test Date Status JOSE RUSHING 10/01/2023 00:32:27 Final Observation Date Value Abnormality Reference (Units ) Status Glucose Point of Care 10/01/2023 00:32:27 146 Above high normal 70-120 (mg/dL) Final Performing Location
--- OUTSIDE RECORDS SUMMARY | 2023-12-07 18:36 | External Medical Summary ---
Author Name Unknown Address Unknown Organization K1F:LABORATORY [facility] - [address] [place] [address] Laboratory Report Ordering Provider Test Date Status CHRISTIANO BECKERW 09/30/2023 04:24:00 Final Observation Date Value Abnormality Reference (Units ) Status BUN 09/30/2023 04:24:00 102 Above high normal 6-20 (mg/dL) Final Creatinine 09/30/2023 04:24:00 2.2 Above high normal 0.5-1.0 (mg/dL) Final Glomerular filtration rate/1.73 sq M.predicted [Volume Rate/Area] in Serum, Plasma or Blood by Creatinine-based formula (CKD-EPI) 09/30/2023 04:24:00 25 Below low normal >=60 (mL/min) Final eGFR is calculated based on the CKD-EPI 2020 equation Sodium 09/30/2023 04:24:00 135 135-146 (m mol/L) Final Potassium 09/30/2023 04:24:00 4.5 3.5-5.1 (m mol/L) Final Cl 09/30/2023 04:24:00 106 98-107 (mm ol/L) Final CO2 09/30/2023 04:24:00 13 Below low normal 22- 32 (mmol/L) Final Anion gap 09/30/2023 04:24:00 16 Above high normal 7- 15 (mmol/L) Final Glucose 09/30/2023 04:24:00 151 Above high normal 70 -120 (mg/dL) Final Calcium 09/30/2023 04:24:00 8.2 Below low normal 8.4 -10.2 (mg/dL) Final Performing Location LABORATORY [facility] - [address] [facility] [address] [place] [address]
--- OUTSIDE RECORDS SUMMARY | 2023-12-07 18:36 | External Medical Summary ---
Author Name Unknown Address Unknown Organization : Laboratory Report Ordering Provider Test Date Status JOSE RUSHING 09/29/2023 23:53:48 Final Observation Date Value Abnormality Reference (Units ) Status Glucose Point of Care 09/29/2023 23:53:48 134 Above high normal 70-120 (mg/dL) Final Performing Location
--- OUTSIDE RECORDS SUMMARY | 2023-12-07 18:36 | External Medical Summary ---
Author Name Unknown Address Unknown Organization K1F:LABORATORY [facility] - [address] [place] [address] Laboratory Report Ordering Provider Test Date Status YESICA FIGUEROA 10/01/2023 03:53:56 Final ADMITTED patient Observation Date Value Abnormality Reference (Units ) Status Adenovirus DNA [Presence] in Nasopharynx by RAKESH with non-probe detection 10/01/2023 03:53:56 Negative Negative Final Human coronavirus 229E RNA [Presence] in Nasopharynx by RAKESH with non-probe detection 10/01/2023 03:53:56 Negative Negative Final Human coronavirus HKU1 RNA [Presence] in Nasopharynx by RAKESH with non-probe detection 10/01/2023 03:53:56 Negative Negative Final Human coronavirus NL63 RNA [Presence] in Nasopharynx by RAKESH with non-probe detection 10/01/2023 03:53:56 Negative Negative Final Human coronavirus OC43 RNA [Presence] in Nasopharynx by RAKESH with non-probe detection 10/01/2023 03:53:56 Negative Negative Final SARS-CoV-2 (COVID-19) RNA [Presence] in Nasopharynx by RAKESH with non-probe detection 10/01/2023 03:53:56 Negative Negative Final Human metapneumovirus RNA [Presence] in Nasopharynx by RAKESH with non-probe detection 10/01/2023 03:53:56 Negative Negative Final Rhinovirus+Enterovirus RNA [Presence] in Nasopharynx by RAKESH with non-probe detection 10/01/2023 03:53:56 Negative Negative Final Influenza virus A RNA [Presence] in Nasopharynx by RAKESH with non-probe detection 10/01/2023 03:53:56 Negative Negative Final Influenza virus B RNA [Presence] in Nasopharynx by RAKESH with non-probe detection 10/01/2023 03:53:56 Negative Negative Final Parainfluenza virus 1 RNA [Presence] in Nasopharynx by RAKESH with non-probe detection 10/01/2023 03:53:56 Negative Negative Final Parainfluenza virus 2 RNA [Presence] in Nasopharynx by RAKESH with non-probe detection 10/01/2023 03:53:56 Negative Negative Final Parainfluenza virus 3 RNA [Presence] in Nasopharynx by RAKESH with non-probe detection 10/01/2023 03:53:56 Negative Negative Final Parainfluenza virus 4 RNA [Presence] in Nasopharynx by RAKESH with non-probe detection 10/01/2023 03:53:56 Negative Negative Final Respiratory syncytial virus RNA [Presence] in Nasopharynx by RAKESH with non-probe detection 10/01/2023 03:53:56 Negative Negative Final Bordetella pertussis.pertussis toxin promoter region [Presence] in Nasopharynx by RAKESH with non-probe detection 10/01/2023 03:53:56 Negative Negative Final Chlamydophila pneumoniae DNA [Presence] in Nasopharynx by RAKESH with non-probe detection 10/01/2023 03:53:56 Negative Negative Final Mycoplasma pneumoniae DNA [Presence] in Nasopharynx by RAKESH with non-probe detection 10/01/2023 03:53:56 Negative Negative Final Bordetella parapertussis [id number] DNA [Presence] in Nasopharynx by RAKESH with non-probe detection 10/01/2023 03:53:56 Negative Negative Final
The primers that detect Rhinovirus may cross react with some Enterorviruses. The validation of bronchial specimens, tracheal aspirates, and throats for this assay was developed and performance characteristics determined by [id number]. The validation of alternate specimen types has not been cleared or approved by the U.S. Food and Drug Administration (FDA). It has been determined that such clearance or approval is not necessary. [facility] - [address] [place] [address] nafisa [facility] [address]
--- OUTSIDE RECORDS SUMMARY | 2023-12-07 18:36 | External Medical Summary ---
Author Name Unknown Address Unknown Organization K01:LABORATORY [facility] - [address] [place] [address] Laboratory Report Ordering Provider Test Date Status CHECO SIMMONS 10/01/2023 14:03:42 Final Observation Date Value Abnormality Reference (Units ) Status Methicillin resistant Staphylococcus aureus (MRSA) DNA [Presence] in Nose by RAKESH with probe detection 10/01/2023 14:03:42 Negative Negative Final No Methicillin resistant Sta phylococcus aureus detected by PCR (amplified probe). Performing Location LABORATORY [facility] - [address] [place] [address]
--- OUTSIDE RECORDS SUMMARY | 2023-12-07 18:36 | External Medical Summary ---
Author Name Unknown Address Unknown Organization : Laboratory Report Ordering Provider Test Date Status JOSE RUSHING 09/30/2023 05:58:21 Final Observation Date Value Abnormality Reference (Units ) Status Glucose Point of Care 09/30/2023 05:58:21 126 Above high normal 70-120 (mg/dL) Final Performing Location
--- OUTSIDE RECORDS SUMMARY | 2023-12-07 18:36 | External Medical Summary ---
Author Name Unknown Address Unknown Organization K1F:LABORATORY [facility] - [address] [place] [address] Laboratory Report Ordering Provider Test Date Status RUBI SIMMONSLUCAS 10/01/2023 12:27:00 Final Post- blood transfusion Observation Date Value Abnormality Reference (Units ) Status WBC, Total 10/01/2023 12:27:00 17.00 Above high normal 4.00-10.80 (K/uL) Final RBC 10/01/2023 12:27:00 2.79 3.85-5.15 (M/uL) Final Hemoglobin 10/01/2023 12:27:00 8.4 Below low normal 12.0-15.3 (g/dL) Final HCT 10/01/2023 12:27:00 26.4 Below low normal 36.0-45.2 (%) Final MCV 10/01/2023 12:27:00 94.6 81.5-97.5 (fL) Final MCH 10/01/2023 12:27:00 30.1 27.0-34.0 (pg) Final MCHC 10/01/2023 12:27:00 31.8 32.0-36.0 (g/dL) Final RDW 10/01/2023 12:27:00 17.9 11.5-15.5 (%) Final Platelets 10/01/2023 12:27:00 274 140-400 (K/uL) Final MPV 10/01/2023 12:27:00 11.7 6.6-11.1 (fL) Final Nucleated erythrocytes/100 leukocytes [Ratio] in Blood by Automated count 10/01/2023 12:27:00 0 <=0 (/100 WBCs) Final Performing Location LABORATORY [facility] - [address] [place] [address]
--- OUTSIDE RECORDS SUMMARY | 2023-12-07 18:36 | External Medical Summary ---
Author Name Unknown Address Unknown Organization K1F:LABORATORY [facility] - [address] [place] [address] Laboratory Report Ordering Provider Test Date Status CHECO SIMMONS 10/01/2023 04:39:00 Final Less than 0.5 ng/mL: Low ris [...] [Mass/volume] in Serum or Plasma by Immunoassay 10/01/2023 04:39:00 0.40 Above high normal <0.10 (ng/mL) Final Performing Location LABORATORY [facility] - [address] [facility] [address] [place] [address]
--- OUTSIDE RECORDS SUMMARY | 2023-12-07 18:36 | External Medical Summary ---
Author Name Unknown Address Unknown Organization K01:LABORATORY [facility] [place] - [facility] [address] [facility] [address] Laboratory Report Ordering Provider Test Date Status CHECO SIMMONS 10/01/2023 14:03:42 Final Observation Date Value Abnormality Reference (Units ) Status Legionella pneumophila 1 Ag [Presence] in Urine 10/01/2023 14:03:42 Negative Negative Final Presumptive negative for L. pneumophila serogroup 1 antigens. A negative result does not rule out the possibility of Legionella infection due to other serogroups or species of Legionella. Performing Location LABORATORY [facility] - [address] [facility] [address]
--- OUTSIDE RECORDS SUMMARY | 2023-12-07 18:36 | External Medical Summary ---
Author Name Unknown Address Unknown Organization : Laboratory Report Ordering Provider Test Date Status CHECO SIMMONS 10/01/2023 17:34:15 Final Observation Date Value Abnormality Reference (Units ) Status Glucose Point of Care 10/01/2023 17:34:15 139 Above high normal 70-120 (mg/dL) Final Performing Location
--- OUTSIDE RECORDS SUMMARY | 2023-12-07 18:36 | External Medical Summary ---
Author Name Unknown Address Unknown Organization K1F:LABORATORY [facility] - [address] [place] [address] Laboratory Report Ordering Provider Test Date Status MIN,MAW 09/30/2023 04:24:00 Final Observation Date Value Abnormality Reference (Units ) Status Phosphate 09/30/2023 04:24:00 4.3 2.5-4.8 (m g/dL) Final Performing Location LABORATORY [facility] - [address] [place] [address]
--- OUTSIDE RECORDS SUMMARY | 2023-12-07 18:36 | External Medical Summary ---
Author Name Unknown Address Unknown Organization K1F:LABORATORY [facility] - [address] [place] [address] Laboratory Report Ordering Provider Test Date Status MIN,MAW 10/01/2023 04:39:00 Final Observation Date Value Abnormality Reference (Units ) Status Magnesium 10/01/2023 04:39:00 2.4 1.5-2.6 (m g/dL) Final Performing Location LABORATORY [facility] - [address] [place] [address]
--- OUTSIDE RECORDS SUMMARY | 2023-12-07 18:36 | External Medical Summary ---
Author Name Unknown Address Unknown Organization K1F:LABORATORY [facility] - [address] [place] [address] [place] [address] Laboratory Report Ordering Provider Test Date Status SONG SMYTH 10/01/2023 04:50:00 Final No anaerobic bottle received . Observation Date Value Abnormality Reference (Units ) Status Bacteria identified in Specimen by Culture 10/01/2023 04:50:00 No growth Final Test: Culture, Blood
Olivia jones Source: Blood, Venous
Specimen Type: Blood
Specimen Date: 10/01/2023 4:50 AM
Result Date: 10/06/2023 5:01 AM
Result Status: Final result
Resulting Lab: LABORATORY [facility]
[address] [place] [address]
[place] [address]

CULTURE

No growth

No anaerobic bottle received.

null Performing Location [address]ATORY [address] [place] [address]
--- OUTSIDE RECORDS SUMMARY | 2023-12-07 18:36 | External Medical Summary ---
Author Name Unknown Address Unknown Organization K1F:LABORATORY [facility] - [address] [place] [address] Laboratory Report Ordering Provider Test Date Status MINMAW 09/30/2023 04:24:00 Final Observation Date Value Abnormality Reference (Units ) Status Magnesium 09/30/2023 04:24:00 2.6 1.5-2.6 (m g/dL) Final Performing Location LABORATORY [facility] - [address] [place] [address]
--- OUTSIDE RECORDS SUMMARY | 2023-12-07 18:36 | External Medical Summary ---
Author Name Unknown Address Unknown Organization K1F:LABORATORY [facility] - [address] [place] [address] Laboratory Report Ordering Provider Test Date Status TROYTRINITYLIONEL 10/02/2023 06:08:00 Final Observation Date Value Abnormality Reference (Units ) Status WBC, Total 10/02/2023 06:08:00 15.09 Above high normal 4.00-10.80 (K/uL) Final RBC 10/02/2023 06:08:00 2.93 3.85-5.15 (M/uL) Final Hemoglobin 10/02/2023 06:08:00 8.7 Below low normal 12.0-15.3 (g/dL) Final HCT 10/02/2023 06:08:00 27.8 Below low normal 36.0-45.2 (%) Final MCV 10/02/2023 06:08:00 94.9 81.5-97.5 (fL) Final MCH 10/02/2023 06:08:00 29.7 27.0-34.0 (pg) Final MCHC 10/02/2023 06:08:00 31.3 32.0-36.0 (g/dL) Final RDW 10/02/2023 06:08:00 19.0 11.5-15.5 (%) Final Platelets 10/02/2023 06:08:00 305 140-400 (K/uL) Final MPV 10/02/2023 06:08:00 12.2 6.6-11.1 (fL) Final Nucleated erythrocytes/100 leukocytes [Ratio] in Blood by Automated count 10/02/2023 06:08:00 0 <=0 (/100 WBCs) Final Performing Location LABORATORY [facility] - [address] [place] [address]
--- OUTSIDE RECORDS SUMMARY | 2023-12-07 18:36 | External Medical Summary ---
Author Name Unknown Address Unknown Organization K1F:LABORATORY [facility] - [address] [place] [address] Laboratory Report Ordering Provider Test Date Status MIN,MAW 10/01/2023 04:39:00 Final Observation Date Value Abnormality Reference (Units ) Status Phosphate 10/01/2023 04:39:00 3.6 2.5-4.8 (m g/dL) Final Performing Location LABORATORY [facility] - [address] [place] [address]
--- OUTSIDE RECORDS SUMMARY | 2023-12-07 18:36 | External Medical Summary ---
Author Name Unknown Address Unknown Organization K1F:LABORATORY [facility] - [address] [place] [address] Laboratory Report Ordering Provider Test Date Status MIN,MAW 09/29/2023 04:18:00 Final Observation Date Value Abnormality Reference (Units ) Status Phosphate 09/29/2023 04:18:00 3.9 2.5-4.8 (m g/dL) Final Performing Location LABORATORY [facility] - [address] [place] [address]
--- OUTSIDE RECORDS SUMMARY | 2023-12-07 18:36 | External Medical Summary ---
Author Name Unknown Address Unknown Organization K1F:LABORATORY [facility] - [address] [place] [address] Laboratory Report Ordering Provider Test Date Status AMANDA AGUILAR 10/01/2023 05:37:00 Final Observation Date Value Abnormality Reference (Units ) Status Lactic Acid 10/01/2023 05:37:00 0.9 0.4-2.0 (mmol/L) Final Performing Location LABORATORY [facility] - [address] [place] [address]
--- OUTSIDE RECORDS SUMMARY | 2023-12-07 18:36 | External Medical Summary ---
Author Name Unknown Address Unknown Organization K1F:LABORATORY [facility] - [address] [place] [address] Laboratory Report Ordering Provider Test Date Status AMANDA AGUILAR 10/02/2023 06:05:22 Final Observation Date Value Abnormality Reference (Units ) Status Body temperature 10/02/2023 06:05:22 37.0 (C) Final pH of Arterial blood 10/02/2023 06:05:22 7.362 7.350-7.450 (units) Final Carbon dioxide [Partial pressure] in Arterial blood 10/02/2023 06:05:22 34.0 Below low normal 35.0-45.0 (mmHg) Final Oxygen [Partial pressure] in Arterial blood 10/02/2023 06:05:22 83.1 75.0-100.0 (mmHg) Final Base excess, Arterial 10/02/2023 06:05:22 -5.4 Below low normal -2.0-2.0 (mmol/L) Final Hemoglobin [Mass/volume] in Blood by Oximetry 10/02/2023 06:05:22 8.7 Below low normal 12.0-15.3 (g/dL) Final Oxyhemoglobin, Arterial (FO2HB) 10/02/2023 06:05:22 91.6 Below low normal 94.0-99.0 (% total Hgb) Final Carboxyhemoglobin 10/02/2023 06:05:22 1.0 <=1.5 (% total Hgb) Final Smokers: 0-9.0 % Methemoglobin 10/02/2023 06:05:22 2.2 Above h igh normal <=1.5 (% total Hgb) Final Deoxyhemoglobin/Hemoglo bin.total in Arterial blood 10/02/2023 06:05:22 5.2 Above high normal 0.0-5.0 (% total Hgb) Final Oxygen content in Arterial blood 10/02/2023 06:05:22 11.3 Below low normal 15.0-24.0 (%vol) Final Oxygen/Total gas setting [Volume Fraction] Ventilator 10/02/2023 06:05:22 40 (%) Final 14 bipap O2 FLOW, [facility] - [facility] 10/02/2023 06:05:22 Not Provided (L/min) Final Bicarbonate, Venous, POC (i-STAT) 10/02/2023 06:05:22 18.8 Below low normal 23.0-31.0 (mmol/L) Final Performing Location LABORATORY [facility] - [address] [place], [place] [address] [address]
--- OUTSIDE RECORDS SUMMARY | 2023-12-07 18:36 | External Medical Summary ---
Author Name Unknown Address Unknown Organization : Laboratory Report Ordering Provider Test Date Status JOSE RUSHING 09/30/2023 18:41:24 Final Observation Date Value Abnormality Reference (Units ) Status Glucose Point of Care 09/30/2023 18:41:24 185 Above high normal 70-120 (mg/dL) Final Performing Location
--- OUTSIDE RECORDS SUMMARY | 2023-12-07 18:36 | External Medical Summary ---
Author Name Unknown Address Unknown Organization K1F:LABORATORY [facility] - [address] [place] [address] Laboratory Report Ordering Provider Test Date Status SONG SMYTH 10/01/2023 04:39:00 Final Observation Date Value Abnormality Reference (Units ) Status WBC, Total 10/01/2023 04:39:00 17.65 Above high normal 4.00-10.80 (K/uL) Final RBC 10/01/2023 04:39:00 2.33 3.85-5.15 (M/uL) Final Hemoglobin 10/01/2023 04:39:00 7.6 Below low normal 12.0-15.3 (g/dL) Final HCT 10/01/2023 04:39:00 23.5 Below low normal 36.0-45.2 (%) Final MCV 10/01/2023 04:39:00 100.9 81.5-97.5 (fL) Final MCH 10/01/2023 04:39:00 32.6 27.0-34.0 (pg) Final MCHC 10/01/2023 04:39:00 32.3 32.0-36.0 (g/dL) Final RDW 10/01/2023 04:39:00 14.0 11.5-15.5 (%) Final Platelets 10/01/2023 04:39:00 297 140-400 (K/uL) Final MPV 10/01/2023 04:39:00 11.8 6.6-11.1 (fL) Final Nucleated erythrocytes/100 leukocytes [Ratio] in Blood by Automated count 10/01/2023 04:39:00 0 <=0 (/100 WBCs) Final Performing Location LABORATORY [facility] - [address] [place] [address]
--- OUTSIDE RECORDS SUMMARY | 2023-12-07 18:36 | External Medical Summary ---
Author Name Unknown Address Unknown Organization : Laboratory Report Ordering Provider Test Date Status JOSE RUSHING 09/29/2023 17:29:03 Final Observation Date Value Abnormality Reference (Units ) Status Glucose Point of Care 09/29/2023 17:29:03 110 70-120 (mg/dL) Final Performing Location
--- OUTSIDE RECORDS SUMMARY | 2023-12-07 18:36 | External Medical Summary ---
Author Name Unknown Address Unknown Organization K1F:LABORATORY [facility] - [address] [place] [address] Laboratory Report Ordering Provider Test Date Status SONG SMYTH 10/01/2023 04:39:00 Final Observation Date Value Abnormality Reference (Units ) Status BUN 10/01/2023 04:39:00 92 Above high normal 6-20 (mg/dL) Final Creatinine 10/01/2023 04:39:00 1.8 Above high normal 0.5-1.0 (mg/dL) Final Glomerular filtration rate/1.73 sq M.predicted [Volume Rate/Area] in Serum, Plasma or Blood by Creatinine-based formula (CKD-EPI) 10/01/2023 04:39:00 31 Below low normal >=60 (mL/min) Final eGFR is calculated based on the CKD-EPI 2020 equation Sodium 10/01/2023 04:39:00 136 135-146 (m mol/L) Final Potassium 10/01/2023 04:39:00 3.7 3.5-5.1 (m mol/L) Final Cl 10/01/2023 04:39:00 105 98-107 (mm ol/L) Final CO2 10/01/2023 04:39:00 15 Below low normal 22- 32 (mmol/L) Final Anion gap 10/01/2023 04:39:00 16 Above high normal 7- 15 (mmol/L) Final Glucose 10/01/2023 04:39:00 171 Above high normal 70 -120 (mg/dL) Final Calcium 10/01/2023 04:39:00 8.3 Below low normal 8.4 -10.2 (mg/dL) Final Performing Location LABORATORY [facility] - [address] [place] [address]
--- OUTSIDE RECORDS SUMMARY | 2023-12-07 18:36 | External Medical Summary ---
Author Name Unknown Address Unknown Organization K1F:LABORATORY [facility] - [address] [place] [address] Laboratory Report Ordering Provider Test Date Status MIN,MAW 10/02/2023 06:13:00 Final Observation Date Value Abnormality Reference (Units ) Status Magnesium 10/02/2023 06:13:00 1.9 1.5-2.6 (m g/dL) Final Performing Location LABORATORY [facility] - [address] [place] [address]
--- OUTSIDE RECORDS SUMMARY | 2023-12-07 18:36 | External Medical Summary ---
Author Name Unknown Address Unknown Organization K1F:LABORATORY [facility] - [address] [place] [address] Laboratory Report Ordering Provider Test Date Status MIN,MAW 09/29/2023 04:18:00 Final Observation Date Value Abnormality Reference (Units ) Status Magnesium 09/29/2023 04:18:00 2.5 1.5-2.6 (m g/dL) Final Performing Location LABORATORY [facility] - [address] [place] [address]
--- OUTSIDE RECORDS SUMMARY | 2023-12-07 18:36 | External Medical Summary ---
Author Name Unknown Address Unknown Organization K1F:LABORATORY [facility] - [address] [place] [address] Laboratory Report Ordering Provider Test Date Status AMANDA AGUILAR 10/02/2023 00:07:02 Final Observation Date Value Abnormality Reference (Units ) Status Body temperature 10/02/2023 00:07:02 37.0 (C) Final pH of Arterial blood 10/02/2023 00:07:02 7.377 7.350-7.450 (units) Final Carbon dioxide [Partial pressure] in Arterial blood 10/02/2023 00:07:02 32.1 Below low normal 35.0-45.0 (mmHg) Final Oxygen [Partial pressure] in Arterial blood 10/02/2023 00:07:02 68.4 Below low normal 75.0-100.0 (mmHg) Final Base excess, Arterial 10/02/2023 00:07:02 -5.6 Below low normal -2.0-2.0 (mmol/L) Final Hemoglobin [Mass/volume] in Blood by Oximetry 10/02/2023 00:07:02 8.5 Below low normal 12.0-15.3 (g/dL) Final Oxyhemoglobin, Arterial (FO2HB) 10/02/2023 00:07:02 89.1 Below low normal 94.0-99.0 (% total Hgb) Final Carboxyhemoglobin 10/02/2023 00:07:02 1.2 <=1.5 (% total Hgb) Final Smokers: 0-9.0 % Methemoglobin 10/02/2023 00:07:02 2.0 Above high normal <=1.5 (% total Hgb) Final Deoxyhemoglobin/Hemog lobin.total in Arterial blood 10/02/2023 00:07:02 7.7 Above high normal 0.0-5.0 (% total Hgb) Final Oxygen content in Arterial blood 10/02/2023 00:07:02 10.7 Below low normal 15.0-24.0 (%vol) Final Oxygen/Total gas setting [Volume Fraction] Ventilator 10/02/2023 00:07:02 Not Provided (%) Final O2 FLOW, ARTERIAL - [facility] 10/02/2023 00:07:02 5 (L/min) Final Bicarbonate, Venous, POC (i-STAT) 10/02/2023 00:07:02 18.4 Below low normal 23.0-31.0 (mmol/L) Final Performing Location LABORATORY [facility] - [address] [place] [address]
--- OUTSIDE RECORDS SUMMARY | 2023-12-07 18:36 | External Medical Summary ---
Author Name Unknown Address Unknown Organization K1F:LABORATORY [facility] - [address] [place] [address] Laboratory Report Ordering Provider Test Date Status TRINITY SIMMONSLIONEL 10/01/2023 21:48:00 Final Observation Date Value Abnormality Reference (Units ) Status WBC, Total 10/01/2023 21:48:00 16.47 Above high normal 4.00-10.80 (K/uL) Final RBC 10/01/2023 21:48:00 3.24 3.85-5.15 (M/uL) Final Hemoglobin 10/01/2023 21:48:00 9.8 Below low normal 12.0-15.3 (g/dL) Final HCT 10/01/2023 21:48:00 30.7 Below low normal 36.0-45.2 (%) Final MCV 10/01/2023 21:48:00 94.8 81.5-97.5 (fL) Final MCH 10/01/2023 21:48:00 30.2 27.0-34.0 (pg) Final MCHC 10/01/2023 21:48:00 31.9 32.0-36.0 (g/dL) Final RDW 10/01/2023 21:48:00 19.3 11.5-15.5 (%) Final Platelets 10/01/2023 21:48:00 308 140-400 (K/uL) Final MPV 10/01/2023 21:48:00 11.9 6.6-11.1 (fL) Final Nucleated erythrocytes/100 leukocytes [Ratio] in Blood by Automated count 10/01/2023 21:48:00 0 <=0 (/100 WBCs) Final Performing Location LABORATORY [facility] - [address] [place] [address]
--- OUTSIDE RECORDS SUMMARY | 2023-12-07 18:37 | External Medical Summary ---
Author Name Unknown Address Unknown Organization K1F:LABORATORY [facility] - [address] [place] [address] Laboratory Report Ordering Provider Test Date Status MIN,MAW 09/28/2023 05:13:00 Final Observation Date Value Abnormality Reference (Units ) Status Magnesium 09/28/2023 05:13:00 2.6 1.5-2.6 (m g/dL) Final Performing Location LABORATORY [facility] - [address] [place] [address]
--- OUTSIDE RECORDS SUMMARY | 2023-12-07 18:37 | External Medical Summary ---
Author Name Unknown Address Unknown Organization : Laboratory Report Ordering Provider Test Date Status JOSE RUSHING 09/28/2023 11:22:25 Final Observation Date Value Abnormality Reference (Units ) Status Glucose Point of Care 09/28/2023 11:22:25 119 70-120 (mg/dL) Final Performing Location
--- OUTSIDE RECORDS SUMMARY | 2023-12-07 18:37 | External Medical Summary ---
Author Name Unknown Address Unknown Organization K1F:LABORATORY [facility] - [address] [place] [address] Laboratory Report Ordering Provider Test Date Status MINMAW 09/26/2023 06:44:00 Final Observation Date Value Abnormality Reference (Units ) Status Phosphate 09/26/2023 06:44:00 5.4 Above high normal 2. 5-4.8 (mg/dL) Final Performing Location LABORATORY [facility] - [address] [place] [address]
--- OUTSIDE RECORDS SUMMARY | 2023-12-07 18:37 | External Medical Summary ---
Author Name Unknown Address Unknown Organization K1F:LABORATORY [facility] - [address] [place] [address] Laboratory Report Ordering Provider Test Date Status MINMAW 09/27/2023 06:08:00 Final Observation Date Value Abnormality Reference (Units ) Status Magnesium 09/27/2023 06:08:00 2.5 1.5-2.6 (m g/dL) Final Performing Location LABORATORY [facility] - [address] [place] [address]
--- OUTSIDE RECORDS SUMMARY | 2023-12-07 18:37 | External Medical Summary ---
Author Name Unknown Address Unknown Organization : Laboratory Report Ordering Provider Test Date Status RAMIN MAY 09/26/2023 00:11:22 Final Observation Date Value Abnormality Reference (Units ) Status Glucose Point of Care 09/26/2023 00:11:22 114 70-120 (mg/dL) Final Performing Location
--- OUTSIDE RECORDS SUMMARY | 2023-12-07 18:37 | External Medical Summary ---
Author Name Unknown Address Unknown Organization K1F:LABORATORY [facility] - [address] [place] [address] Laboratory Report Ordering Provider Test Date Status MINMAW 09/25/2023 06:37:00 Final Observation Date Value Abnormality Reference (Units ) Status Magnesium 09/25/2023 06:37:00 2.3 1.5-2.6 (m g/dL) Final Performing Location LABORATORY [facility] - [address] [place] [address]
--- OUTSIDE RECORDS SUMMARY | 2023-12-07 18:37 | External Medical Summary ---
Author Name Unknown Address Unknown Organization K1F:LABORATORY [facility] - [address] [place] [address] Laboratory Report Ordering Provider Test Date Status MINMAW 09/26/2023 06:44:00 Final Observation Date Value Abnormality Reference (Units ) Status Magnesium 09/26/2023 06:44:00 2.5 1.5-2.6 (m g/dL) Final Performing Location LABORATORY [facility] - [address] [place] [address]
--- OUTSIDE RECORDS SUMMARY | 2023-12-07 18:37 | External Medical Summary ---
Author Name Unknown Address Unknown Organization K1F:LABORATORY [facility] - [address] [place] [address] Laboratory Report Ordering Provider Test Date Status RAMIN MAY 09/24/2023 13:02:55 Final Observation Date Value Abnormality Reference (Units ) Status Color of Urine by Auto 09/24/2023 13:02:55 Yellow Light Yellow, Yellow, Dark Yellow Final Clarity, Urine 09/24/2023 13:02:55 Clear Clear Final Glucose [Mass/volume] in Urine by Automated test strip 09/24/2023 13:02:55 Negative Negative (mg/dL) Final Bilirubin.total [Presence] in Urine by Automated test strip 09/24/2023 13:02:55 Negative Negative Final Ketones [Mass/volume] in Urine by Automated test strip 09/24/2023 13:02:55 Negative Negative (mg/dL) Final Specific gravity, Urine 09/24/2023 13:02:55 1.015 1.003-1.030 Final Hemoglobin [Presence] in Urine by Automated test strip 09/24/2023 13:02:55 Negative Negative Final pH, Urine 09/24/2023 13:02:55 6.0 5.0-7.5 (Units) Final Protein [Mass/volume] in Urine by Automated test strip 09/24/2023 13:02:55 Negative Negative (mg/dL) Final Urobilinogen [Mass/volume] in Urine by Automated test strip 09/24/2023 13:02:55 0.2 0.2, 1.0 (mg/dL) Final Nitrite [Presence] in Urine by Automated test strip 09/24/2023 13:02:55 Negative Negative Final Leukocyte esterase [Presence] in Urine by Automated test strip 09/24/2023 13:02:55 Negative Negative Final Annotation Comment 09/24/2023 13:02:55 Final Screen negative - Microscopi c not performed. Performing Location LABORATORY [facility] - [address] [place] [address]
--- OUTSIDE RECORDS SUMMARY | 2023-12-07 18:37 | External Medical Summary ---
Author Name Unknown Address Unknown Organization K01:LABORATORY [facility] - [address] [place] [address] Laboratory Report Ordering Provider Test Date Status MIN,MAW 09/27/2023 06:08:00 Final Observation Date Value Abnormality Reference (Units ) Status Triglyceride 09/27/2023 06:08:00 101 <=174 ( mg/dL) Final Triglyceride Reference Range s (mg/dL):
<150 Acceptable
150-174 Borderline high
175-499 High
>=500 Very high Performing Location LABORATORY [facility] - [address] [place] [address]
--- OUTSIDE RECORDS SUMMARY | 2023-12-07 18:37 | External Medical Summary ---
Author Name Unknown Address Unknown Organization : Laboratory Report Ordering Provider Test Date Status RAMIN MAY 09/25/2023 06:27:48 Final Observation Date Value Abnormality Reference (Units ) Status Glucose Point of Care 09/25/2023 06:27:48 113 70-120 (mg/dL) Final Performing Location
--- OUTSIDE RECORDS SUMMARY | 2023-12-07 18:37 | External Medical Summary ---
Author Name Unknown Address Unknown Organization : Laboratory Report Ordering Provider Test Date Status JOSE RUSHING 09/27/2023 00:48:44 Final Observation Date Value Abnormality Reference (Units ) Status Glucose Point of Care 09/27/2023 00:48:44 223 Above high normal 70-120 (mg/dL) Final Performing Location
--- OUTSIDE RECORDS SUMMARY | 2023-12-07 18:37 | External Medical Summary ---
Author Name Unknown Address Unknown Organization : Laboratory Report Ordering Provider Test Date Status JOSE RUSHING 09/27/2023 18:26:53 Final Observation Date Value Abnormality Reference (Units ) Status Glucose Point of Care 09/27/2023 18:26:53 116 70-120 (mg/dL) Final Performing Location
--- OUTSIDE RECORDS SUMMARY | 2023-12-07 18:37 | External Medical Summary ---
Author Name Unknown Address Unknown Organization K1F:LABORATORY [facility] - [address] [place] [address] Laboratory Report Ordering Provider Test Date Status VIVIANE BECKER 09/26/2023 06:44:00 Final Observation Date Value Abnormality Reference (Units ) Status BUN 09/26/2023 06:44:00 82 Above high normal 6-20 (mg/dL) Final Creatinine 09/26/2023 06:44:00 1.5 Above high normal 0.5-1.0 (mg/dL) Final Glomerular filtration rate/1.73 sq M.predicted [Volume Rate/Area] in Serum, Plasma or Blood by Creatinine-based formula (CKD-EPI) 09/26/2023 06:44:00 39 Below low normal >=60 (mL/min) Final eGFR is calculated based on the CKD-EPI 2020 equation Sodium 09/26/2023 06:44:00 137 135-146 (m mol/L) Final Potassium 09/26/2023 06:44:00 4.5 3.5-5.1 (m mol/L) Final Cl 09/26/2023 06:44:00 107 98-107 (mm ol/L) Final CO2 09/26/2023 06:44:00 15 Below low normal 22- 32 (mmol/L) Final Anion gap 09/26/2023 06:44:00 15 7-15 (mmol /L) Final Glucose 09/26/2023 06:44:00 96 70-120 (mg /dL) Final Calcium 09/26/2023 06:44:00 8.3 Below low normal 8.4 -10.2 (mg/dL) Final Performing Location LABORATORY [facility] - [address] [place] [address]
--- OUTSIDE RECORDS SUMMARY | 2023-12-07 18:37 | External Medical Summary ---
Author Name Unknown Address Unknown Organization : Laboratory Report Ordering Provider Test Date Status EDSON SHAW 09/23/2023 12:53:00 Final Observation Date Value Abnormality Reference (Units ) Status Thiamine [Moles/volume] in Blood 09/23/2023 12:53:00 250 Above high normal 78-185 (nmol/L) Final Vitamin supplementation with in 24 hours prior to
blood draw may affect the accuracy of the results.
This test was developed and its analytical performance
characteristics have been determined by [employer]
[facility] [place], [place]. It has
not been cleared or approved by the U.S. Food and Drug
Administration. This assay has been validated pursuant
to the CLIA regulations and is used for clinical
purposes.

Test Performed at:
[facility] [facility]
[address] [place] [address]
Armando Chanel M.D., Ph.D.,Director of Laboratories Performing Location
--- OUTSIDE RECORDS SUMMARY | 2023-12-07 18:37 | External Medical Summary ---
Author Name Unknown Address Unknown Organization : Laboratory Report Ordering Provider Test Date Status RAMIN MAY 09/24/2023 11:47:16 Final Observation Date Value Abnormality Reference (Units ) Status Glucose Point of Care 09/24/2023 11:47:16 191 Above high normal 70-120 (mg/dL) Final Performing Location
--- OUTSIDE RECORDS SUMMARY | 2023-12-07 18:37 | External Medical Summary ---
Author Name Unknown Address Unknown Organization K1F:LABORATORY [facility] - [address] [place] [address] Laboratory Report Ordering Provider Test Date Status MIN,MAW 09/27/2023 06:08:00 Final Observation Date Value Abnormality Reference (Units ) Status Albumin 09/27/2023 06:08:00 3.0 Below low normal 3.8-5.0 (g/dL) Final AST (Aspartate aminotransferase) 09/27/2023 06:08:00 22 10-35 (U/L) Final Alk Phos 09/27/2023 06:08:00 112 35-130 (U/L) Final ALT (Alanine aminotransferase) 09/27/2023 06:08:00 30 10-35 (U/L) Final Bilirubin, Total 09/27/2023 06:08:00 <0.2 <=1.2 (mg/dL) Final Bilirubin, Direct 09/27/2023 06:08:00 <0.2 0.0-0.3 (mg/dL) Final Protein 09/27/2023 06:08:00 5.8 Below low normal 6.0-8.3 (g/dL) Final Performing Location LABORATORY [facility] - [address] [place] [address]
--- OUTSIDE RECORDS SUMMARY | 2023-12-07 18:37 | External Medical Summary ---
Author Name Unknown Address Unknown Organization : Laboratory Report Ordering Provider Test Date Status JOSE RUSHING 09/27/2023 06:05:15 Final Observation Date Value Abnormality Reference (Units ) Status Glucose Point of Care 09/27/2023 06:05:15 122 Above high normal 70-120 (mg/dL) Final Performing Location
--- OUTSIDE RECORDS SUMMARY | 2023-12-07 18:37 | External Medical Summary ---
Author Name Unknown Address Unknown Organization : Laboratory Report Ordering Provider Test Date Status JOSE RUSHING 09/28/2023 06:23:51 Final Observation Date Value Abnormality Reference (Units ) Status Glucose Point of Care 09/28/2023 06:23:51 112 70-120 (mg/dL) Final Performing Location
--- OUTSIDE RECORDS SUMMARY | 2023-12-07 18:37 | External Medical Summary ---
Author Name Unknown Address Unknown Organization K1F:LABORATORY [facility] - [address] [place] [address] Laboratory Report Ordering Provider Test Date Status VIVIANE BECKER 09/28/2023 05:13:00 Final Observation Date Value Abnormality Reference (Units ) Status BUN 09/28/2023 05:13:00 83 Above high normal 6-20 (mg/dL) Final Creatinine 09/28/2023 05:13:00 1.6 Above high normal 0.5-1.0 (mg/dL) Final Glomerular filtration rate/1.73 sq M.predicted [Volume Rate/Area] in Serum, Plasma or Blood by Creatinine-based formula (CKD-EPI) 09/28/2023 05:13:00 37 Below low normal >=60 (mL/min) Final eGFR is calculated based on the CKD-EPI 2020 equation Sodium 09/28/2023 05:13:00 136 135-146 (m mol/L) Final Potassium 09/28/2023 05:13:00 4.7 3.5-5.1 (m mol/L) Final Cl 09/28/2023 05:13:00 107 98-107 (mm ol/L) Final CO2 09/28/2023 05:13:00 16 Below low normal 22- 32 (mmol/L) Final Anion gap 09/28/2023 05:13:00 13 7-15 (mmol /L) Final Glucose 09/28/2023 05:13:00 118 70-120 (mg /dL) Final Calcium 09/28/2023 05:13:00 8.4 8.4-10.2 ( mg/dL) Final Performing Location LABORATORY [facility] - [address] [place] [address]
--- OUTSIDE RECORDS SUMMARY | 2023-12-07 18:37 | External Medical Summary ---
Author Name Unknown Address Unknown Organization : Laboratory Report Ordering Provider Test Date Status JOSE RUSHING 09/28/2023 00:20:40 Final Observation Date Value Abnormality Reference (Units ) Status Glucose Point of Care 09/28/2023 00:20:40 152 Above high normal 70-120 (mg/dL) Final Performing Location
--- OUTSIDE RECORDS SUMMARY | 2023-12-07 18:37 | External Medical Summary ---
Author Name Unknown Address Unknown Organization : Laboratory Report Ordering Provider Test Date Status EDSON SHAW 09/23/2023 12:53:00 Final Observation Date Value Abnormality Reference (Units ) Status Copper 09/23/2023 12:53:00 85 70-175 (mc g/dL) Final This test was developed and its analytical performance
characteristics have been determined by [employer]
[place], [place]. It has
not been cleared or approved by the U.S. Food and Drug
Administration. This assay has been validated pursuant
to the CLIA regulations and is used for clinical
purposes.

Test Performed at:
[employer] [facility]
[address] [place] [address]
Armando Chanel M.D., Ph.D.,Director of Laboratories Performing Location
--- OUTSIDE RECORDS SUMMARY | 2023-12-07 18:37 | External Medical Summary ---
Author Name Unknown Address Unknown Organization K1F:LABORATORY [facility] - [address] [place] [address] Laboratory Report Ordering Provider Test Date Status MIN,MAW 09/28/2023 05:13:00 Final Observation Date Value Abnormality Reference (Units ) Status Phosphate 09/28/2023 05:13:00 4.3 2.5-4.8 (m g/dL) Final Performing Location LABORATORY [facility] - [address] [place] [address]
--- OUTSIDE RECORDS SUMMARY | 2023-12-07 18:37 | External Medical Summary ---
Author Name Unknown Address Unknown Organization K1F:LABORATORY [facility] - [address] [place] [address] Laboratory Report Ordering Provider Test Date Status VIVIANE BECKER 09/27/2023 06:08:00 Final Observation Date Value Abnormality Reference (Units ) Status BUN 09/27/2023 06:08:00 83 Above high normal 6-20 (mg/dL) Final Creatinine 09/27/2023 06:08:00 1.6 Above high normal 0.5-1.0 (mg/dL) Final Glomerular filtration rate/1.73 sq M.predicted [Volume Rate/Area] in Serum, Plasma or Blood by Creatinine-based formula (CKD-EPI) 09/27/2023 06:08:00 38 Below low normal >=60 (mL/min) Final eGFR is calculated based on the CKD-EPI 2020 equation Sodium 09/27/2023 06:08:00 134 Below low normal 135 -146 (mmol/L) Final Potassium 09/27/2023 06:08:00 4.5 3.5-5.1 (m mol/L) Final Cl 09/27/2023 06:08:00 106 98-107 (mm ol/L) Final CO2 09/27/2023 06:08:00 15 Below low normal 22- 32 (mmol/L) Final Anion gap 09/27/2023 06:08:00 13 7-15 (mmol /L) Final Glucose 09/27/2023 06:08:00 118 70-120 (mg /dL) Final Calcium 09/27/2023 06:08:00 8.5 8.4-10.2 ( mg/dL) Final Performing Location LABORATORY [facility] - [address] [place] [address]
--- OUTSIDE RECORDS SUMMARY | 2023-12-07 18:37 | External Medical Summary ---
Author Name Unknown Address Unknown Organization K1F:LABORATORY [facility] - [address] [place] [address] Laboratory Report Ordering Provider Test Date Status VIVIANE BECKER 09/25/2023 06:37:00 Final Observation Date Value Abnormality Reference (Units ) Status BUN 09/25/2023 06:37:00 66 Above high normal 6-20 (mg/dL) Final Creatinine 09/25/2023 06:37:00 1.2 Above high normal 0.5-1.0 (mg/dL) Final Glomerular filtration rate/1.73 sq M.predicted [Volume Rate/Area] in Serum, Plasma or Blood by Creatinine-based formula (CKD-EPI) 09/25/2023 06:37:00 50 Below low normal >=60 (mL/min) Final eGFR is calculated based on the CKD-EPI 2020 equation Sodium 09/25/2023 06:37:00 139 135-146 (m mol/L) Final Potassium 09/25/2023 06:37:00 4.5 3.5-5.1 (m mol/L) Final Cl 09/25/2023 06:37:00 110 Above high normal 98 -107 (mmol/L) Final CO2 09/25/2023 06:37:00 16 Below low normal 22- 32 (mmol/L) Final Anion gap 09/25/2023 06:37:00 13 7-15 (mmol /L) Final Glucose 09/25/2023 06:37:00 116 70-120 (mg /dL) Final Calcium 09/25/2023 06:37:00 8.6 8.4-10.2 ( mg/dL) Final Performing Location LABORATORY [facility] - [address] [place] [address]
--- OUTSIDE RECORDS SUMMARY | 2023-12-07 18:37 | External Medical Summary ---
Author Name Unknown Address Unknown Organization : Laboratory Report Ordering Provider Test Date Status RAMIN MAY 09/25/2023 00:01:53 Final Observation Date Value Abnormality Reference (Units ) Status Glucose Point of Care 09/25/2023 00:01:53 124 Above high normal 70-120 (mg/dL) Final Performing Location
--- OUTSIDE RECORDS SUMMARY | 2023-12-07 18:37 | External Medical Summary ---
Author Name Unknown Address Unknown Organization : Laboratory Report Ordering Provider Test Date Status RAMIN MAY 09/24/2023 00:12:19 Final Observation Date Value Abnormality Reference (Units ) Status Glucose Point of Care 09/24/2023 00:12:19 124 Above high normal 70-120 (mg/dL) Final Performing Location
--- OUTSIDE RECORDS SUMMARY | 2023-12-07 18:37 | External Medical Summary ---
Author Name Unknown Address Unknown Organization : Laboratory Report Ordering Provider Test Date Status RAMIN MAY 09/25/2023 18:27:15 Final Observation Date Value Abnormality Reference (Units ) Status Glucose Point of Care 09/25/2023 18:27:15 156 Above high normal 70-120 (mg/dL) Final Performing Location
--- OUTSIDE RECORDS SUMMARY | 2023-12-07 18:37 | External Medical Summary ---
Author Name Unknown Address Unknown Organization K1F:LABORATORY [facility] - [address] [place] [address] Laboratory Report Ordering Provider Test Date Status YAYOMYRNAJENNIFER 09/27/2023 06:08:00 Final Observation Date Value Abnormality Reference (Units ) Status Calcium.ionized [Moles/volume] in Serum or Plasma by Ion-selective membrane electrode (ISE) 09/27/2023 06:08:00 1.27 1.13-1.32 (mmol/L) Final This test was developed and its performance characteristics dtermined by [employer] [facility] [facility]. It has not been cleared or approved by the [place] Food and Drug Administration Performing Location LABORATORY [facility] - [address] [place] [address]
--- OUTSIDE RECORDS SUMMARY | 2023-12-07 18:37 | External Medical Summary ---
Author Name Unknown Address Unknown Organization : Laboratory Report Ordering Provider Test Date Status RAMIN MAY 09/26/2023 17:09:56 Final Observation Date Value Abnormality Reference (Units ) Status Glucose Point of Care 09/26/2023 17:09:56 81 70-120 (mg/dL) Final Performing Location
--- OUTSIDE RECORDS SUMMARY | 2023-12-07 18:37 | External Medical Summary ---
Author Name Unknown Address Unknown Organization K1F:LABORATORY [facility] - [address] [place] [address] Laboratory Report Ordering Provider Test Date Status MIN,MAW 09/27/2023 06:08:00 Final Observation Date Value Abnormality Reference (Units ) Status Phosphate 09/27/2023 06:08:00 4.3 2.5-4.8 (m g/dL) Final Performing Location LABORATORY [facility] - [address] [place] [address]
--- OUTSIDE RECORDS SUMMARY | 2023-12-07 18:37 | External Medical Summary ---
Author Name Unknown Address Unknown Organization : Laboratory Report Ordering Provider Test Date Status EDSON SHAW 09/23/2023 12:53:00 Final Observation Date Value Abnormality Reference (Units ) Status Zinc, level 09/23/2023 12:53:00 38 Below low normal 6 0-130 (mcg/dL) Final This test was developed and its analytical performance
characteristics have been determined by [facility]
[place] It has
not been cleared or approved by the U.S. Food and Drug
Administration. This assay has been validated pursuant
to the CLIA regulations and is used for clinical
purposes.

Test Performed at:
[facility]
[address]
[place] [address]
Armando Chanel M.D., Ph.D.,Director of Laboratories Performing Location
--- OUTSIDE RECORDS SUMMARY | 2023-12-07 18:37 | External Medical Summary ---
Author Name Unknown Address Unknown Organization : Laboratory Report Ordering Provider Test Date Status RAMIN MAY 09/26/2023 06:53:53 Final Observation Date Value Abnormality Reference (Units ) Status Glucose Point of Care 09/26/2023 06:53:53 97 70-120 (mg/dL) Final Performing Location
--- OUTSIDE RECORDS SUMMARY | 2023-12-07 18:37 | External Medical Summary ---
Author Name Unknown Address Unknown Organization : Laboratory Report Ordering Provider Test Date Status RAMIN MAY 09/24/2023 17:31:47 Final Observation Date Value Abnormality Reference (Units ) Status Glucose Point of Care 09/24/2023 17:31:47 88 70-120 (mg/dL) Final Performing Location
--- OUTSIDE RECORDS SUMMARY | 2023-12-07 18:37 | External Medical Summary ---
Author Name Unknown Address Unknown Organization : Laboratory Report Ordering Provider Test Date Status JOSE RUSHING 09/28/2023 18:15:37 Final Observation Date Value Abnormality Reference (Units ) Status Glucose Point of Care 09/28/2023 18:15:37 142 Above high normal 70-120 (mg/dL) Final Performing Location
--- OUTSIDE RECORDS SUMMARY | 2023-12-07 18:37 | External Medical Summary ---
Author Name Unknown Address Unknown Organization : Laboratory Report Ordering Provider Test Date Status RAMIN MAY 09/26/2023 11:43:33 Final Observation Date Value Abnormality Reference (Units ) Status Glucose Point of Care 09/26/2023 11:43:33 87 70-120 (mg/dL) Final Performing Location
--- OUTSIDE RECORDS SUMMARY | 2023-12-07 18:37 | External Medical Summary ---
Author Name Unknown Address Unknown Organization : Laboratory Report Ordering Provider Test Date Status RAMIN MAY 09/25/2023 08:13:47 Final Observation Date Value Abnormality Reference (Units ) Status Glucose Point of Care 09/25/2023 08:13:47 181 Above high normal 70-120 (mg/dL) Final Performing Location
--- OUTSIDE RECORDS SUMMARY | 2023-12-07 18:37 | External Medical Summary ---
Author Name Unknown Address Unknown Organization : Laboratory Report Ordering Provider Test Date Status RAMIN MAY 09/25/2023 12:09:33 Final Observation Date Value Abnormality Reference (Units ) Status Glucose Point of Care 09/25/2023 12:09:33 96 70-120 (mg/dL) Final Performing Location
--- OUTSIDE RECORDS SUMMARY | 2023-12-07 18:37 | External Medical Summary ---
Author Name Unknown Address Unknown Organization : Laboratory Report Ordering Provider Test Date Status EDSON SHAW 09/23/2023 12:53:00 Final Observation Date Value Abnormality Reference (Units ) Status Vitamin K-1, level 09/23/2023 12:53:00 >2500 Above high normal 130-1500 (pg/mL) Final This test was developed and its analytical performance
characteristics have been determined by [facility]
[email or web address] [place], [place]. It has
not been cleared or approved by the U.S. Food and Drug
Administration. This assay has been validated pursuant
to the CLIA regulations and is used for clinical
purposes.

Test Performed at:
[facility]
[address] [facility]
[place] [address]
Armando Chanel M.D., Ph.D.,Director of Laboratories Performing Location
--- OUTSIDE RECORDS SUMMARY | 2023-12-07 18:37 | External Medical Summary ---
Author Name Unknown Address Unknown Organization K1F:LAB[facility]ATORY [facility] - [address] [place] [address] Laboratory Report Ordering Provider Test Date Status MINMAW 09/24/2023 05:34:00 Final Observation Date Value Abnormality Reference (Units ) Status Magnesium 09/24/2023 05:34:00 2.0 1.5-2.6 (m g/dL) Final Performing Location [facility] - [address] [place] [address]
--- OUTSIDE RECORDS SUMMARY | 2023-12-07 18:37 | External Medical Summary ---
Author Name Unknown Address Unknown Organization K1F:[facility]ORY [facility] - [address] [place] [address] Laboratory Report Ordering Provider Test Date Status MIN,MAW 09/25/2023 06:37:00 Final Observation Date Value Abnormality Reference (Units ) Status Phosphate 09/25/2023 06:37:00 4.6 2.5-4.8 (m g/dL) Final Performing Location [facility] - [address] [place] [address]
--- OUTSIDE RECORDS SUMMARY | 2023-12-07 18:37 | External Medical Summary ---
Author Name Unknown Address Unknown Organization : Laboratory Report Ordering Provider Test Date Status RAMIN MAY 09/23/2023 18:22:58 Final Observation Date Value Abnormality Reference (Units ) Status Glucose Point of Care 09/23/2023 18:22:58 187 Above high normal 70-120 (mg/dL) Final Performing Location
--- OUTSIDE RECORDS SUMMARY | 2023-12-07 18:37 | External Medical Summary ---
Author Name Unknown Address Unknown Organization K1F:LABORATORY [facility] - [address] [place] [address] Laboratory Report Ordering Provider Test Date Status VIVIANE BECKER 09/24/2023 05:34:00 Final Observation Date Value Abnormality Reference (Units ) Status BUN 09/24/2023 05:34:00 47 Above high normal 6-20 (mg/dL) Final Creatinine 09/24/2023 05:34:00 1.0 0.5-1.0 (mg/dL) Final Glomerular filtration rate/1.73 sq M.predicted [Volume Rate/Area] in Serum, Plasma or Blood by Creatinine-based formula (CKD-EPI) 09/24/2023 05:34:00 63 >=60 (mL/min) Final eGFR is calculated based on the CKD-EPI 2020 equation Sodium 09/24/2023 05:34:00 136 135-146 (m mol/L) Final Potassium 09/24/2023 05:34:00 4.4 3.5-5.1 (m mol/L) Final Cl 09/24/2023 05:34:00 110 Above high normal 98 -107 (mmol/L) Final CO2 09/24/2023 05:34:00 17 Below low normal 22- 32 (mmol/L) Final Anion gap 09/24/2023 05:34:00 9 7-15 (mmol /L) Final Glucose 09/24/2023 05:34:00 95 70-120 (mg /dL) Final Calcium 09/24/2023 05:34:00 7.8 Below low normal 8.4 -10.2 (mg/dL) Final Performing Location LAB[facility]ATORY [facility] - [address] [place] [address]
--- OUTSIDE RECORDS SUMMARY | 2023-12-07 18:37 | External Medical Summary ---
Author Name Unknown Address Unknown Organization K1F:[facility]ORY [facility] - [address] [place] [address] Laboratory Report Ordering Provider Test Date Status MIN,MAW 09/24/2023 05:34:00 Final Observation Date Value Abnormality Reference (Units ) Status Phosphate 09/24/2023 05:34:00 4.2 2.5-4.8 (m g/dL) Final Performing Location [facility] - [address] [place] [address]
--- OUTSIDE RECORDS SUMMARY | 2023-12-07 18:37 | External Medical Summary ---
Author Name Unknown Address Unknown Organization : Laboratory Report Ordering Provider Test Date Status JOSE RUSHING 09/27/2023 11:49:46 Final Observation Date Value Abnormality Reference (Units ) Status Glucose Point of Care 09/27/2023 11:49:46 115 70-120 (mg/dL) Final Performing Location
--- OUTSIDE RECORDS SUMMARY | 2023-12-07 18:38 | External Medical Summary ---
Author Name Unknown Address Unknown Organization : Laboratory Report Ordering Provider Test Date Status RAMIN MAY 09/23/2023 11:08:46 Final Observation Date Value Abnormality Reference (Units ) Status Glucose Point of Care 09/23/2023 11:08:46 98 70-120 (mg/dL) Final Performing Location
--- OUTSIDE RECORDS SUMMARY | 2023-12-07 18:38 | External Medical Summary ---
Author Name Unknown Address Unknown Organization K1F:[facility]ORY [facility] - [address] [place] [address] Laboratory Report Ordering Provider Test Date Status MINMAW 09/23/2023 12:49:00 Final Observation Date Value Abnormality Reference (Units ) Status Phosphate 09/23/2023 12:49:00 3.9 2.5-4.8 (m g/dL) Final Performing Location [facility] - [address] [place] [address]
--- OUTSIDE RECORDS SUMMARY | 2023-12-07 18:38 | External Medical Summary ---
Author Name Unknown Address Unknown Organization K01:LABORATORY [facility] [place] - [address] [place] [address] Laboratory Report Ordering Provider Test Date Status EDSON SHAW 09/22/2023 08:32:58 Final Deficient: <20 ng/mL
Ins ufficient: 20-29 ng/mL
Recommended/Optimum:30-50 ng/mL

Vitamin D intoxication is rare. If suspicious of Vitamin D toxicity, evaluation of serum Calcium and PTH is recommended. Observation Date Value Abnormality Reference (Units ) Status 25-OH Vitamin D total 09/22/2023 08:32:58 9 Below low normal >19 (ng/mL) Final Performing Location LABORATORY [facility] - [address] [place] [address]
--- OUTSIDE RECORDS SUMMARY | 2023-12-07 18:38 | External Medical Summary ---
Author Name Unknown Address Unknown Organization : Laboratory Report Ordering Provider Test Date Status EDSON SHAW 09/23/2023 12:52:00 Final Observation Date Value Abnormality Reference (Units ) Status Vitamin E, level 09/23/2023 12:52:00 4.6 Below low nor mal 5.7-19.9 (mg/L) Final Levels of alpha-tocopherol < 5 mg/L are consistent
with Vitamin E deficiency in adults. Beta+gamma tocopherol [Mass/ volume] in Serum or Plasma 09/23/2023 12:52:00 2.6 <=4.3 (mg/L) Final Vitamin supplementation with in 24 hours prior to
blood draw may affect the accuracy of the results.
This test was developed and its analytical performance
characteristics have been determined by [facility] [place], [place]. It has
not been cleared or approved by the U.S. Food and Drug
Administration. This assay has been validated pursuant
to the CLIA regulations and is used for clinical
purposes.

Test Performed at:
[facility]
[address]
[place], [place] [address]
Armando Chanel M.D., Ph.D.,Director of Laboratories Performing Location
--- OUTSIDE RECORDS SUMMARY | 2023-12-07 18:38 | External Medical Summary ---
Author Name Unknown Address Unknown Organization : Laboratory Report Ordering Provider Test Date Status RAMIN MAY 09/22/2023 19:01:00 Final Observation Date Value Abnormality Reference (Units ) Status Glucose Point of Care 09/22/2023 19:01:00 106 70-120 (mg/dL) Final Performing Location
--- OUTSIDE RECORDS SUMMARY | 2023-12-07 18:38 | External Medical Summary ---
Author Name Unknown Address Unknown Organization : Laboratory Report Ordering Provider Test Date Status RAMIN MAY 09/22/2023 12:32:29 Final Observation Date Value Abnormality Reference (Units ) Status Glucose Point of Care 09/22/2023 12:32:29 106 70-120 (mg/dL) Final Performing Location
--- OUTSIDE RECORDS SUMMARY | 2023-12-07 18:38 | External Medical Summary ---
Author Name Unknown Address Unknown Organization : Laboratory Report Ordering Provider Test Date Status RAMIN MAY 09/23/2023 00:10:03 Final Observation Date Value Abnormality Reference (Units ) Status Glucose Point of Care 09/23/2023 00:10:03 119 70-120 (mg/dL) Final Performing Location
--- OUTSIDE RECORDS SUMMARY | 2023-12-07 18:38 | External Medical Summary ---
Author Name Unknown Address Unknown Organization : Laboratory Report Ordering Provider Test Date Status RAMIN MAY 09/21/2023 12:27:24 Final Observation Date Value Abnormality Reference (Units ) Status Glucose Point of Care 09/21/2023 12:27:24 94 70-120 (mg/dL) Final Performing Location
--- OUTSIDE RECORDS SUMMARY | 2023-12-07 18:38 | External Medical Summary ---
Author Name Unknown Address Unknown Organization : Laboratory Report Ordering Provider Test Date Status RAMIN MAY 09/23/2023 05:35:44 Final Observation Date Value Abnormality Reference (Units ) Status Glucose Point of Care 09/23/2023 05:35:44 111 70-120 (mg/dL) Final Performing Location
--- OUTSIDE RECORDS SUMMARY | 2023-12-07 18:38 | External Medical Summary ---
Author Name Unknown Address Unknown Organization : Laboratory Report Ordering Provider Test Date Status RAMIN MAY 09/22/2023 06:33:30 Final Observation Date Value Abnormality Reference (Units ) Status Glucose Point of Care 09/22/2023 06:33:30 96 70-120 (mg/dL) Final Performing Location
--- OUTSIDE RECORDS SUMMARY | 2023-12-07 18:38 | External Medical Summary ---
Author Name Unknown Address Unknown Organization K01:LABORATORY [facility] [place] - [address] [place] [address] Laboratory Report Ordering Provider Test Date Status EDSON SHAW 09/22/2023 08:32:58 Final Observation Date Value Abnormality Reference (Units ) Status Vitamin B12 09/22/2023 08:32:58 222 231-2592 (pg/mL) Final Performing Location LAB[facility]ATORY [facility] - [address] [place] [address]
--- OUTSIDE RECORDS SUMMARY | 2023-12-07 18:38 | External Medical Summary ---
Author Name Unknown Address Unknown Organization : Laboratory Report Ordering Provider Test Date Status EDSON SHAW 09/23/2023 12:51:00 Final Observation Date Value Abnormality Reference (Units ) Status Vitamin A, level 09/23/2023 12:51:00 51 38- 98 (mcg/dL) Final Vitamin supplementation with in 24 hours prior to
blood draw may affect the accuracy of the results.
This test was developed and its analytical performance
characteristics have been determined by [facility] [place]. It has
not been cleared or approved by the U.S. Food and Drug
Administration. This assay has been validated pursuant
to the CLIA regulations and is used for clinical
purposes.

Test Performed at:
[facility]
[address]
[place] [address]
Armando Chanel M.D., Ph.D.,Director of Laboratories Performing Location
--- OUTSIDE RECORDS SUMMARY | 2023-12-07 18:38 | External Medical Summary ---
Author Name Unknown Address Unknown Organization : Laboratory Report Ordering Provider Test Date Status EDSON SHAW 09/23/2023 12:51:00 Final Observation Date Value Abnormality Reference (Units ) Status METHYLMALONIC ACID 09/23/2023 12:51:00 2044 Above high normal 87-318 (nmol/L) Final THIS RESULT HAS BEEN VERIFIE D BY REPEAT ANALYSIS.
This test was developed and its analytical performance
characteristics have been determined by [facility]
[place], [place]. It has
not been cleared or approved by the U.S. Food and Drug
Administration. This assay has been validated pursuant
to the CLIA regulations and is used for clinical
purposes.

Test Performed at:
[facility]
[address]
[place] [address]
Armando Chanel M.D., Ph.D.,Director of Laboratories Performing Location
--- OUTSIDE RECORDS SUMMARY | 2023-12-07 18:38 | External Medical Summary ---
Author Name Unknown Address Unknown Organization K1F:LABORATORY [facility] - [address] [place] [address] Laboratory Report Ordering Provider Test Date Status VIVIANE BECKER 09/22/2023 08:32:58 Final Observation Date Value Abnormality Reference (Units ) Status BUN 09/22/2023 08:32:58 39 Above high normal 6-20 (mg/dL) Final Creatinine 09/22/2023 08:32:58 1.1 Above high normal 0.5-1.0 (mg/dL) Final Glomerular filtration rate/1.73 sq M.predicted [Volume Rate/Area] in Serum, Plasma or Blood by Creatinine-based formula (CKD-EPI) 09/22/2023 08:32:58 57 Below low normal >=60 (mL/min) Final eGFR is calculated based on the CKD-EPI 2020 equation Sodium 09/22/2023 08:32:58 135 135-146 (m mol/L) Final Potassium 09/22/2023 08:32:58 5.1 3.5-5.1 (m mol/L) Final Cl 09/22/2023 08:32:58 112 Above high normal 98 -107 (mmol/L) Final CO2 09/22/2023 08:32:58 16 Below low normal 22- 32 (mmol/L) Final Anion gap 09/22/2023 08:32:58 7 7-15 (mmol /L) Final Glucose 09/22/2023 08:32:58 88 70-120 (mg /dL) Final Calcium 09/22/2023 08:32:58 8.2 Below low normal 8.4 -10.2 (mg/dL) Final Performing Location LAB[facility]ATORY [facility] - [address] [place] [address]
--- OUTSIDE RECORDS SUMMARY | 2023-12-07 18:38 | External Medical Summary ---
Author Name Unknown Address Unknown Organization K01:LABORATORY [facility] [place] - [address] [place] [address] Laboratory Report Ordering Provider Test Date Status TOMASPOLOEDSON 09/22/2023 08:32:58 Final Observation Date Value Abnormality Reference (Units ) Status Folic Acid 09/22/2023 08:32:58 8.2 >4.5 (ng/ mL) Final Performing Location [facility] - [address] [place] [address]
--- OUTSIDE RECORDS SUMMARY | 2023-12-07 18:38 | External Medical Summary ---
Author Name Unknown Address Unknown Organization K01:[place] [facility] [place] [address] [place] [address] [place] [address] Laboratory Report Ordering Provider Test Date Status EDSON SHAW 09/22/2023 08:32:58 Final Observation Date Value Abnormality Reference (Units ) Status Iron 09/22/2023 08:32:58 39 33-151 (ug /dL) Final Iron-binding capacity 09/22/2023 08:32:58 258 250-425 (ug/dL) Final Transferrin Sat % 09/22/2023 08:32:58 15 15 -55 (%) Final Performing Location LABORATORY C - [address] [place] [address]
--- OUTSIDE RECORDS SUMMARY | 2023-12-07 18:38 | External Medical Summary ---
Author Name Unknown Address Unknown Organization K01:LABORATORY [facility] [place] - [address] [place] [address] Laboratory Report Ordering Provider Test Date Status EDSON SHAW 09/22/2023 08:32:58 Final Observation Date Value Abnormality Reference (Units ) Status Ferritin 09/22/2023 08:32:58 16 13-150 (ng /mL) Final Postmenopausal women have hi gher ferritin levels than pre-menopausal women. The above reference interval is based on pre-menopausal women. Performing Location [facility]ORY [facility] - [address] [place] [address]
--- OUTSIDE RECORDS SUMMARY | 2023-12-07 18:38 | External Medical Summary ---
Author Name Unknown Address Unknown Organization : Laboratory Report Ordering Provider Test Date Status RAMIN MAY 09/21/2023 18:35:28 Final Observation Date Value Abnormality Reference (Units ) Status Glucose Point of Care 09/21/2023 18:35:28 132 Above high normal 70-120 (mg/dL) Final Performing Location
--- OUTSIDE RECORDS SUMMARY | 2023-12-07 18:38 | External Medical Summary ---
Author Name Unknown Address Unknown Organization K1F:LABORATORY [facility] - [address] [place] [address] Laboratory Report Ordering Provider Test Date Status CHRISTIANO BECKERW 09/23/2023 12:49:00 Final Observation Date Value Abnormality Reference (Units ) Status BUN 09/23/2023 12:49:00 45 Above high normal 6-20 (mg/dL) Final Creatinine 09/23/2023 12:49:00 1.1 Above high normal 0.5-1.0 (mg/dL) Final Glomerular filtration rate/1.73 sq M.predicted [Volume Rate/Area] in Serum, Plasma or Blood by Creatinine-based formula (CKD-EPI) 09/23/2023 12:49:00 58 Below low normal >=60 (mL/min) Final eGFR is calculated based on the CKD-EPI 2020 equation Sodium 09/23/2023 12:49:00 134 Below low normal 135 -146 (mmol/L) Final Potassium 09/23/2023 12:49:00 5.7 Above high normal 3. 5-5.1 (mmol/L) Final Cl 09/23/2023 12:49:00 107 98-107 (mm ol/L) Final CO2 09/23/2023 12:49:00 16 Below low normal 22- 32 (mmol/L) Final Anion gap 09/23/2023 12:49:00 11 7-15 (mmol /L) Final Glucose 09/23/2023 12:49:00 150 Above high normal 70 -120 (mg/dL) Final Calcium 09/23/2023 12:49:00 8.5 8.4-10.2 ( mg/dL) Final Performing Location LABORATORY [facility] - [address] [place] [address]
--- OUTSIDE RECORDS SUMMARY | 2023-12-07 18:38 | External Medical Summary ---
Author Name Unknown Address Unknown Organization K1F:LABORATORY [facility] - [address] [place] [address] Laboratory Report Ordering Provider Test Date Status MINMAW 09/22/2023 08:32:58 Final Observation Date Value Abnormality Reference (Units ) Status Phosphate 09/22/2023 08:32:58 3.2 2.5-4.8 (m g/dL) Final Performing Location LAB[facility]ATORY [facility] - [address] [place] [address]
--- OUTSIDE RECORDS SUMMARY | 2023-12-07 18:38 | External Medical Summary ---
Author Name Unknown Address Unknown Organization : Laboratory Report Ordering Provider Test Date Status RAMIN MAY 09/22/2023 00:03:12 Final Observation Date Value Abnormality Reference (Units ) Status Glucose Point of Care 09/22/2023 00:03:12 105 70-120 (mg/dL) Final Performing Location
--- OUTSIDE RECORDS SUMMARY | 2023-12-07 18:38 | External Medical Summary ---
Author Name Unknown Address Unknown Organization K1F:LABORATORY [facility] - [address] [place] [address] Laboratory Report Ordering Provider Test Date Status MINMAW 09/22/2023 08:32:58 Final Observation Date Value Abnormality Reference (Units ) Status Magnesium 09/22/2023 08:32:58 1.9 1.5-2.6 (m g/dL) Final Performing Location LABORATORY [facility] - [address] [place] [address]
--- OUTSIDE RECORDS SUMMARY | 2023-12-07 18:38 | External Medical Summary ---
Author Name Unknown Address Unknown Organization K1F:LABORATORY [facility] - [address] [place] [address] Laboratory Report Ordering Provider Test Date Status MINMAW 09/23/2023 12:49:00 Final Observation Date Value Abnormality Reference (Units ) Status Magnesium 09/23/2023 12:49:00 2.0 1.5-2.6 (m g/dL) Final Performing Location LAB[facility]ATORY [facility] - [address] [place] [address]
--- OUTSIDE RECORDS SUMMARY | 2023-12-07 18:39 | External Medical Summary | Summary of Care ---
Author Name Unknown Organization [facility] Address [address] [place] [address] Phone [phone] Care Team Providers Care Back Tender Fourdrinier Name Role Phone Evelyn Andrews MD Primary Care Prov ider Encounter Details Date Type Department Care Team (Late st Contact Info) Description 09/14/2023 10:00 AM EDT Telemedicine Nutrition & Weight Management, [place] [address] [place] [address] Vic Wilkerson, [address] [place], [place] [id number] Severe protein-energy malnutrition (HCC)*; S/P gastric bypass; Diarrhea, unspecified type; Copper deficiency; Depression, unspecified depression type Allergies Active Allergy Reactions Criticality Noted Date Comments Amoxicillin Edema airway High 01/22/2003 Oxybutynin 03/25/2023 Mouth ulcers Sulfa Antibiotics Edema airway High 08/15/2006 documented as of this encounter (statuses as of 09/14/2023) Medications Medication Sig Dispensed Refills Start Date End Date Status CYANOCOBALAMIN 1000 MCG/ML IJ SOLN one injection monthly 0 Active CALCITRIOL 0.25 MCG PO CAPS 1 CAPSULE BY MOUTH MONDAYS/WEDNESDAYS/ FRIDAYS 5 4 Active [facility] ACETAMINOPHEN EX ST 500 MG Tablet TAKE 1 CAPSULE BY MOUTH EVERY 4 HOURS 0 0 Active Oyster Shell Calcium 500 MG Oral Tablet Take 2 Tabs by mouth daily. 60 Tab 5 0 Active Estradiol 0.1 MG/GM Vaginal Cream (Estrace) Administer 1 g into the vagina in the morning. Apply periurethrally as directed.. 42.5 g 2 2 Active Additional Information Patient not taking.Reported on 08/15/2023 Dicyclomine HCl 20 MG Oral Tablet (Bentyl)Indications: [...] X WEEKLY 10 Tablet 5 3 Active Myrbetriq 25 MG Oral Tablet Extended Release 24 Hour (Mirabegron ER)Indications:Urge incontinence of urine Take 1 Tablet by mouth in the morning. 90 Tablet 3 3 Active Additional Information Patient not taking.Reported on 08/15/2023 Mirtazapine 45 MG Oral Tablet (Remeron)Indications :Recurrent major depressive disorder, in partial remission (HCC) Take 1 Tablet by mouth at bedtime. 30 Tablet 3 3 Active ALPRAZolam 0.25 MG Oral Tablet (xaNAX)Indications:A nxiety Take 1 Tablet by mouth at bedtime as needed for Sleep. 30 Tablet 3 3 Active Rizatriptan Benzoate 10 MG Oral Tablet (Maxalt)Indications: Migraine variant TAKE 1 TAB BY MOUTH DAILY NEEDED FOR MIGRAINE. 10 Tablet 5 3 Active Furosemide 20 MG Oral Tablet (Lasix) Take 1 Tablet by mouth in the morning. 7 Tablet 0 4 Active Additional Information Patient not taking.Reported on 08/15/2023 guaiFENesin-Codeine 100-10 MG/5ML Oral Syrup (Robitussin AC)Indications:COVID -19 Take 5 mL by mouth every 4 hours as needed for Cough. 120 mL 0 4 Active Nystatin 007298 UNIT/GM External Cream APPLY TO AFFECTED AREA TWICE A DAY 30 g 2 4 Active OLANZapine 5 MG Oral Tablet Disintegrating (zyPREXA zyDIS) Place 1 Tablet on tongue in the morning. 30 Tablet 5 4 Active Omeprazole 20 MG Oral Capsule Delayed Release (PriLOSEC) TAKE 1 CAPSULE BY MOUTH EVERY DAY IN THE MORNING 90 Capsule 4 4 Active Ondansetron 4 MG Oral Tablet Disintegrating (Zofran)Indications: Intractable vomiting with nausea PLACE 1 TABLET ON TONGUE EVERY 8 HOURS NEEDED FOR NAUSEA. 90 Tablet 1 4 Active Diphenoxylate-Atropi ne 2.5-0.025 MG Oral Tablet (Lomotil)Indications :Migraine variant TAKE ONE TABLET BY MOUTH 4 TIMES DAILY NEEDED FOR DAIRRHEA 60 Tablet 0 4 Active Bgahofugdc-OYTO-Erii eine 50-325-40 MG Oral Tablet (Fioricet)Indication s:Migraine variant TAKE ONE TABLET EVERY 6 HOURS NEEDED FOR PAIN 90 Tablet 1 4 Active Promethazine HCl 25 MG Oral Tablet (Phenergan)Indicatio ns:Nausea Take 1 Tablet by mouth every 8 hours as needed for Nausea. 30 Tablet 3 4 Active Pregabalin 25 MG Oral Capsule (Lyrica)Indications: Copper deficiency myeloneuropathy (HCC),Hereditary and idiopathic peripheral neuropathy Take 1 Capsule by mouth in the morning and 1 Capsule before bedtime. 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 02/06/2017 07/09/2019 Iron deficiency anemia 06/28/201109/20 Overview: ICD-10 update of inactive term Iron deficiency anemia 06/28/201109/20 Overview: ICD-10 update of inactive term Iron deficiency anemia pat paulino to inadequate dietary iron intake 09/26/2008 3 Infected postoperative seroma 06/02/2003 09/20/2012 PANNICULITIS, UNSP SITE 05/14/200311/2022 documented as of this encounter (statuses as of 09/14/2023) Immunizations Name Administration Dates Next Due COVID-19 mRNA, LNP-s, No Pre serve, 2-Dose Series (SiteJabber) 02/16/2021,11/25/2020,11/01/2020 COVID-19, MRNA-LNP, 23-24, P F, 30 MCG/0.3 mL, 12 YRS AND ABOVE, IM (eFuneral-Comiratrium health stanlygis.to) 04/10/2023 Covid-19, Mrna, Lnp-s, Pf, B ivalent, 30 Mcg, IM, 12 yrs and above (SiteJabber) 04/12/2022 Pneumococcal Conjugate Vacci ne, 20-valent (Ijwerjk15) 12/10/2021 Pneumococcal Polysaccharide PPV23 (Pneumovax) 07/21/2009 Seasonal [...] No 12/08/2022 documented as of this encounter Progress Notes * Vic Wilkerson, - 09/14/2023 10:13 AM EDT Evelyn Mobley MD Patient location: HOME. I was in a hospital or clinic location. After connecting through [employer],patient was verified with two unique identifiers. Patient (or authorized legal market survey representative) was then informed that this was [...] information. Nutrition Diagnosis: SEVERE Protein/Calorie Malnutrition Weight 76 pounds LMP 04/05/2007 Wt Readings from Last 6 Encounters: 08/15/23 35.4 kg (78 lb) 06/20/23 34.5 kg (76 lb) 06/14/23 33.1 kg (73 lb) 04/24/23 33.6 kg (74 lb) 04/03/23 34.4 kg (75 lb 12.8 oz) 03/25/23 34 kg (75 lb 1 oz) Current Outpatient Medications Medication Sig Dispense Refill CYANOCOBALAMIN 1000 MCG/ML IJ SOLN one injection monthly CALCITRIOL 0.25 MCG PO CAPS 1 CAPSULE BY MOUTH MONDAYS/WEDNESDAYS/FRIDAYS 5 [facility] [address]IN[address]HEN EX ST 500 MG Tablet TAKE 1 CAPSULE BY MOUTH EVERY 4 HOURS Oyster Shell Calcium 500 MG Oral Tablet Take 2 Tabs by mouth daily. 60 Tab 5 Estradiol 0.1 MG/GM Vaginal Cream (Estrace) Administer 1 g into the vagina in the morning. Apply periurethrally as directed.. (Patient not taking: Reported on 08/15/2023) 42.5 g 2 Dicyclomine HCl 20 MG Oral Tablet (Bentyl) [...] THAN 3 X WEEKLY 10 Tablet 5 Myrbetriq 25 MG Oral Tablet Extended Release 24 Hour (Mirabegron ER) Take 1 Tablet by mouth in the morning. (Patient not taking: Reported on 08/15/2023) 90 Tablet 3 Mirtazapine 45 MG Oral Tablet (Remeron) Take 1 Tablet by mouth at bedtime. 30 Tablet 3 ALPRAZolam 0.25 MG Oral Tablet (xaNAX) Take 1 Tablet by mouth at bedtime as needed for Sleep. 30 Tablet 3 Rizatriptan Benzoate 10 MG Oral Tablet (Maxalt) TAKE 1 TAB BY MOUTH DAILY NEEDED FOR MIGRAINE. 10 Tablet 5 Furosemide 20 MG Oral Tablet (Lasix) Take 1 Tablet by mouth in the morning. (Patient not taking: Reported on 08/15/2023) 7 Tablet 0 guaiFENesin-Codeine 100-10 MG/5ML Oral Syrup (Robitussin AC) Take 5 mL by mouth every 4 hours as needed for Cough. 120 mL 0 Nystatin 024409 UNIT/GM External Cream APPLY TO AFFECTED AREA TWICE A DAY 30 g 2 OLANZapine 5 MG Oral Tablet Disintegrating (zyPREXA zyDIS) Place 1 Tablet on tongue in the morning.30 Tablet 5 Omeprazole 20 MG Oral Capsule Delayed Release (PriLOSEC) TAKE 1 CAPSULE BY MOUTH EVERY DAY IN THE MORNING 90 Capsule 4 Ondansetron 4 MG Oral Tablet Disintegrating (Zofran) PLACE 1 TABLET ON TONGUE EVERY 8 HOURS NEEDED FOR NAUSEA. 90 Tablet 1 Diphenoxylate-Atropine 2.5-0.025 MG Oral Tablet (Lomotil) TAKE ONE TABLET BY MOUTH 4 TIMES DAILY ASNEEDED FOR DAIRRHEA 60 Tablet 0 Afmfkfeqmn-XTVA-Jqfpgpff 50-325-40 MG Oral Tablet (Fioricet) TAKE ONE TABLET EVERY 6 HOURS NEEDED FOR PAIN 90 Tablet 1 Promethazine HCl 25 MG Oral Tablet (Phenergan) Take 1 Tablet by mouth every 8 hours as needed for Nausea. 30 Tablet 3 Pregabalin 25 MG Oral Capsule (Lyrica) Take 1 Capsule by mouth in the morning and 1 Capsule before bedtime. 60 Capsule 5 No current facility-administered medications for this visit. Diet: regular Nutrition Support: NONE Venous Access: None Enteral Access: NONE Review of Systems: -- Tolerating TPN LMP 04/05/2007 Physical Exam Severe Protein Calorie Malnutrition: Long discussion with Patricia. She said she is now agreeable to admission if that is what we think is best for her. She states she did start her TPN 3 Monday and last night this week. I again asked her about her infusion history and she said she was using another pump; not the one she sent back. I said then if she truly was infusing every day at home, maybe admission wasn't necessary.... She said she would like to give it another try. She is agreeable to be admitted and to have 7 days a week of TPN infused. Once discharged, she states she only wants it 3 times a week. I said we have to see what her nutritional status is at that time. She "agreed." She does not want to be admitted before Monday, 09/19. Will see if we can accommodate [facility] next week at [facility]. Awais now, continue M-W-F highly modified TPN. I told her we will monitor her pump infusion history every 2 weeks. If she does not infuse, we would not continue sending her TPN at home. Diarrhea: -- Stable (E61.0) Copper deficiency - Infusion PRN (D50.9) Iron deficiency anemia, unspecified iron deficiency anemia type - Follows by hematology Depression: "Stable". Continue Remeron --CDS Vic Wilkerson DO, RACHEL, FACP Director, [facility] Registered Nurse Step Down, Department of Gastroenterology/Nutrition documented in this encounter Plan of Treatment Upcoming Encounters Date Type Department Care Team (Late st Contact Info) Description 09/18/2023 10:30 AM EDT Immunization/Injection Hematology/Oncology Treatment, [address] [phone] Nurse, Med [address] [place] [address] 09/26/2023 11:20 AM EDT Office Visit Family Medicine [address] [phone] Evelyn Andrews MD [address] [place] [address] 10/02/2023 9:20 AM EDT Office Visit Neurology [facility] [address] [place] [address] Aris Mohr MD [address] [place] [address] 10/13/2023 5:30 PM EDT Telemedicine Psychiatry, [place] [address] [place] [address] Alexis Serna MD [address] [place] [address] 10/17/2023 3:20 PM EDT Office Visit Gastroenterology, [facility] [address] [place] [address] Milind Yadav MD [address] [place] [address] 12/04/2023 3:45 PM EDT Office Visit Urology, [facility] [address] [place] [address] Christopher Almonte MD [address] Randy [...] 11/24, 01/15/2007 Colorectal Cancer Screening 12/11/2023 GFR 03/06/2024 09/04/2023, 07/28, 08/14/2023, Additional history exists CKD HGB USE SMARTSET 82841 06/12/202406/12, 03/13/2023, 03/13/2023, Additional history exists Albumin/Creatinine Ratio 08/23/2024 024, 08/23/2022, 09/20/2021 CKD PHOS USE SMARTSET 54135 09/03/202408/24, 08/21/2023, 08/14/2023, Additional history exists DTaP,Tdap,and Td Vaccines (2 [...] this encounter Medical Devices Implanted Type Area Rehabilitation Aide/Scheduler Device Identifier Shelf Expiration Date Model / Serial / Lot Stent Axios 20mm - [id number] Implanted:Qty: 1 on 01/04/2021 by Leyda Garcia MD at OR [facility] N/A: Stomach [employer] : ENDOSCOPY 11/20/2021 [id number] / / [id number] documented as of this encounter Visit Diagnoses Diagnosis Severe protein-energy malnutrition (HCC)- Primary Other severe protein-calorie malnutrition S/P gastric bypass Bariatric surgery status Diarrhea, unspecified type Copper deficiency Disorders of copper metabolism Depression, unspecified depression type documented in this encounter Advance Directives Documents on File Type Date Recorded Patient Escrow Agent Expl anation POLST 01/03/2022 [place] [facility]SU[facility]AINING TREATMENT Latest Code Status on File Code Status Date Activated Date Inactivated Comments No Code 12/08/2022 11:17 AM 12/15/2022 8:22 PM This order reflects the patients wishes and were consensually agreed upon. Question Answer Comments Discussion of Advance Directives occurred with: Patient Code Status History Code Status Date Activated Date Inactivated Comments Full Code 12/08/2022 10:55 AM 12/08/2022 11:17 [...] Directives occurred with: Patient Full Code 11/17/2022 10:06 AM 11/17/2022 3:28 PM This order reflects the patients wishes and were consensually agreed upon. Question Answer Comments Discussion of Advance Directives occurred with: Patient Healthcare Agents on File Name Relationship Healthcare Agent Relationship Communication Ariella Acosta Other - (no specific identity) Health Care Escrow Agent (appointed verbally by patient or by statute hierarchy) Rowdy Kraus Health Care Escrow Agent (appointed verbally by patient or by statute hierarchy) Care Teams Back Tender Fourdrinier Relationship Specialty Start Date End Date Evelyn Andrews MD [address] [place] [address] [place] [id number] PCP - General Family Medicine 05/04/18 documented as of this encounter
--- OUTSIDE RECORDS SUMMARY | 2023-12-07 18:39 | External Medical Summary ---
Author Name Unknown Address Unknown Organization K1F:[facility] - [address] [place] [address] Laboratory Report Ordering Provider Test Date Status ANANDA RICHARDSON 09/20/2023 14:49:58 Final SCREENING Observation Date Value Abnormality Reference (Units ) Status SARS Coronavirus 2 09/20/2023 14:49:58 Negative N egative Final 2019 Novel Coronavirus not d etected.

This express test was developed and its performance characteristics determined by [facility]. It has not been cleared or approved [...] (RT-PCR) test, or a Centers for Disease Control-acceptable equivalent. The test is performed in a high complexity Clinical Laboratory Improvement Amendments-(CLIA) certified laboratory. The test is acceptable for SARS-CoV-2 diagnosis, surveillance, and travel within the [place] and to most countries. Please check with local testing authorities about requirements before travel.

The validation of bronchial specimens, tracheal aspirates, and sputum for this assay was developed and performance characteristics determined by [facility]. The validation of alternate specimen types has not been cleared or approved by the U.S. Food and Drug Administration (FDA). It has been determined that such clearance is not necessary. Performing Location [facility] - [address] [place] [address]
--- OUTSIDE RECORDS SUMMARY | 2023-12-07 18:39 | External Medical Summary ---
Author Name Unknown Address Unknown Organization K1F:[facility] - [address] [place] [address] Laboratory Report Ordering Provider Test Date Status CHRISTIANO BECKERW 09/21/2023 11:28:40 Final Observation Date Value Abnormality Reference (Units ) Status BUN 09/21/2023 11:28:40 37 Above high normal 6-20 (mg/dL) Final Creatinine 09/21/2023 11:28:40 1.2 Above high normal 0.5-1.0 (mg/dL) Final Glomerular filtration rate/1.73 sq M.predicted [Volume Rate/Area] in Serum, Plasma or Blood by Creatinine-based formula (CKD-EPI) 09/21/2023 11:28:40 52 Below low normal >=60 (mL/min) Final eGFR is calculated based on the CKD-EPI 2020 equation Sodium 09/21/2023 11:28:40 136 135-146 (m mol/L) Final Potassium 09/21/2023 11:28:40 5.5 Above high normal 3. 5-5.1 (mmol/L) Final Cl 09/21/2023 11:28:40 111 Above high normal 98 -107 (mmol/L) Final CO2 09/21/2023 11:28:40 13 Below low normal 22- 32 (mmol/L) Final Anion gap 09/21/2023 11:28:40 12 7-15 (mmol /L) Final Glucose 09/21/2023 11:28:40 99 70-120 (mg /dL) Final Calcium 09/21/2023 11:28:40 8.1 Below low normal 8.4 -10.2 (mg/dL) Final Performing Location [facility] - [address] [facility] [place] [place] [address]
--- OUTSIDE RECORDS SUMMARY | 2023-12-07 18:39 | External Medical Summary | Summary of Care ---
Author Name Unknown Organization [facility] Address [address] [place] [address] Phone [phone] Care Team Providers Care Grapple Crew Leader Name Role Phone Evelyn Jimenez MD Primary Care Prov ider Reason for Visit * Reason Comments eRx-Medication Refill Encounter Details Date Type Department Care Team (Late st Contact Info) Description 09/18/2023 Refill Family Medicine [address] [phone] Evelyn Jimenez MD [address] [place] [address] [place] [address] Intractable vomiting with nausea Allergies Active Allergy Reactions Criticality Noted Date Comments Amoxicillin Edema airway High 01/22/2003 Oxybutynin 03/25/2023 Mouth ulcers Sulfa Antibiotics Edema airway High 08/15/2006 documented as of this encounter (statuses as of 09/19/2023) Medications Medication Sig Dispensed Refills Start Date End Date Status CYANOCOBALAMIN 1000 MCG/ML IJ SOLN one injection monthly 0 Active CALCITRIOL 0.25 MCG PO CAPS 1 CAPSULE BY MOUTH MONDAYS/WEDNESDAYS /FRIDAYS 5 04/10/20 14 Active [facility] ACETAMINOPHEN EX ST 500 MG Tablet TAKE 1 CAPSULE BY MOUTH EVERY 4 HOURS 0 07/03/19 20 Active Oyster Shell Calcium 500 MG Oral Tablet Take 2 Tabs by mouth daily. 60 Tab 5 04/07/20 Active Estradiol 0.1 MG/GM Vaginal Cream (Estrace) Administer 1 g into the vagina in the morning. Apply periurethrally as directed.. 42.5 g 2 05/23/20 Active Additional Information Patient not taking.Reported on [...] in the morning. 30 Capsule 0 12/16/19 Active DULoxetine HCl 60 MG Oral Capsule Delayed Release Particles (Cymbalta) Take 2 Capsules by mouth in the morning. 180 Capsule 2 02/22/20 Active SUMAtriptan Succinate 50 MG Oral Tablet (Imitrex)Indication s:Migraine variant MAX OF 2 TABS PER ATTACK AND NO MORE THAN 3 X WEEKLY 10 Tablet 5 03/16/20 23 Active Myrbetriq 25 MG Oral Tablet Extended Release 24 Hour (Mirabegron ER)Indications:Urge incontinence of urine Take 1 Tablet by mouth in the morning. 90 Tablet 3 04/03/20 Active Additional Information Patient not taking.Reported on 08/15/2023 Mirtazapine 45 MG Oral Tablet (Remeron)Indication s:Recurrent major depressive disorder, in partial remission (HCC) Take 1 Tablet by mouth at bedtime. 30 Tablet 3 04/12/20 Active ALPRAZolam 0.25 MG Oral Tablet (xaNAX)Indications: Anxiety Take 1 Tablet by mouth at bedtime as needed for Sleep. 30 Tablet 3 06/14/20 23 Active Furosemide 20 MG Oral Tablet (Lasix) Take 1 Tablet by mouth in the morning. 7 Tablet 0 06/27/19 Active Additional Information Patient not taking.Reported on 08/15/2023 guaiFENesin-Codeine 100-10 MG/5ML Oral Syrup (Robitussin AC)Indications:COVI D-19 Take 5 mL by mouth every 4 hours as needed for Cough. 120 mL 0 06/28/19 24 Active Nystatin 266871 UNIT/GM External Cream APPLY TO AFFECTED AREA [...] DAIRRHEA 60 Tablet 0 08/09/19 24 Active Uddacezrni-LIBP-Raz feine 50-325-40 MG Oral Tablet (Fioricet)Indicatio ns:Migraine variant TAKE ONE TABLET EVERY 6 HOURS NEEDED FOR PAIN 90 Tablet 1 08/15/19 24 Active Promethazine HCl 25 MG Oral Tablet (Phenergan)Indicati ons:Nausea Take 1 Tablet by mouth every 8 hours as needed for Nausea. 30 Tablet 3 08/15/19 24 Active Pregabalin 25 MG Oral Capsule (Lyrica)Indications :Copper deficiency myeloneuropathy (HCC),Hereditary and idiopathic peripheral neuropathy Take 1 Capsule by mouth in the morning and 1 Capsule before bedtime. 60 Capsule 5 08/15/19 24 Active Rizatriptan Benzoate 10 MG Oral Tablet (Maxalt)Indications :Migraine variant TAKE 1 TAB BY MOUTH DAILY NEEDED FOR MIGRAINE. 10 Tablet 5 09/18/19 24 Active Ondansetron 4 MG Oral Tablet Disintegrating (Zofran)Indications :Intractable vomiting with nausea PLACE 1 TABLET ON TONGUE EVERY 8 HOURS NEEDED FOR NAUSEA. 90 Tablet 1 09/19/19 24 Active Ondansetron 4 MG Oral Tablet Disintegrating (Zofran)Indications :Intractable vomiting with nausea PLACE 1 TABLET ON TONGUE EVERY 8 HOURS NEEDED FOR NAUSEA. 90 Tablet 1 07/26/19 24 024 Discontinued documented as of this encounter (statuses as of 09/19/2023) Active Problems Problem Noted Date Diagnosed Date [...] as of this encounter (statuses as of 09/19/2023) Resolved Problems Problem Noted Date Diagnosed Date Resolved Date Old MD (myocardial infarction) 03/01/2023 03/01/2023 Atherosclerosis of [place] co ronary artery without angina pectoris 02/08/2022 [...] malnutrition 09/28/2018 09/23/2021 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/2021 COOK CHIEF 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 02/06/2017 05/02/2018 COOK CHIEF 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 02/06/2017 07/09/2019 Iron deficiency anemia 06/28/201109/20 Overview: ICD-10 update of inactive term Iron deficiency anemia 06/28/201109/20 Overview: ICD-10 update of inactive term Iron deficiency anemia pat paulino to inadequate dietary iron intake 09/26/2008 3 Infected postoperative seroma 06/02/2003 09/20/2012 [facility]200311[facility]20[facility] documented as of this encounter (statuses as of 09/19/2023) Immunizations Name Administration Dates Next Due COVID-19 mRNA, LNP-s, No Pre serve, 2-Dose Series ([employer]) 02/16/2021,11/25/2020,11/01/2020 COVID-19, MRNA-LNP, 23-24, P F, 30 MCG/0.3 mL, 12 YRS AND ABOVE, IM ([employer]) 04/10/2023 Covid-19, Mrna, Lnp-s, Pf, B ivalent, 30 Mcg, IM, 12 yrs and above ([employer]) 04/12/2022 Pneumococcal Conjugate Vacci ne, 20-valent ([id number]) 12/10/2021 Pneumococcal Polysaccharide PPV23 (Pneumovax) 07/21/2009 Seasonal [...] encounter Miscellaneous Notes * Telephone Encounter - Jose Schultz [facility] - 09/19/2023 11:18 AM EDT Signed Prescriptions: Disp Refills Ondansetron 4 MG Oral Tablet Disintegratin*90 Tab*1 Sig: PLACE 1 TABLET ON TONGUE EVERY 8 HOURS NEEDED FOR NAUSEA.Authorizing Provider: EVELYN JIMENEZ User: JOSE SCHULTZ documented in this encounter Plan of Treatment Upcoming Encounters Date Type Department Care Team (Late st Contact Info) Description 09/26/2023 11:20 AM EDT Office Visit Family Medicine [address] [place] [address] Evelyn Jimenez MD [address] [place] [address] [place] [address] 10/02/2023 9:20 AM EDT Office Visit Neurology [facility] [address] [place] [address] Aris Mohr MD [address] [place] [address] 10/13/2023 5:30 PM EDT Telemedicine Psychiatry, [place] [address], [place] [phone] Alexis Serna MD [address] [place] [address] 10/17/2023 3:20 PM EDT Office Visit Gastroenterology, [facility] [address] [facility] [place] [address] Milind Yadav MD 132 [facility] [place] [address] 12/04/2023 3:45 PM EDT Office Visit Urology, [facility] [place] [address] Christopher Almonte MD [address] [place] [address] [place] [phone] Health Maintenance Due Date Last Done Comments [...] Additional history exists CKD HGB USE SMARTSET 84301 06/12/202406/12, 03/13/2023, 03/13/2023, Additional history exists Albumin/Creatinine Ratio 08/23/2024 024, 08/23/2022, 09/20/2021 CKD PHOS USE SMARTSET 65342 09/03/202408/24, 08/21/2023, 08/14/2023, Additional history exists DTaP,Tdap,and [...] this encounter Medical Devices Implanted Type Area Heating And Ventilating Worker Device Identifier Shelf Expiration Date Model / Serial / Lot Stent Axios 20mm - [id number] Implanted:Qty: 1 on 01/04/2021 by Leyda Garcia MD at OR [facility] N/A: Stomach [employer] : ENDOSCOPY 11/20/2021 [id number] / / [id number] documented as of this encounter Visit Diagnoses Diagnosis Intractable vomiting with nausea documented in this encounter Advance Directives Documents on File Type Date Recorded Patient Traffic Control Operator Expl anation POLST 01/03/2022 [place] [facility] FOR LIFE-SUSTAINING [...] Other - (no specific identity) Health Care Traffic Control Operator (appointed verbally by patient or by statute hierarchy) Rowdy Hogue Sibling Health Care Traffic Control Operator (appointed verbally by patient or by statute hierarchy) Care Teams Grapple Crew Leader Relationship Specialty Start Date End Date Evelyn Jimenez MD [address] [place] [address] [place] [address] PCP - General Family Medicine 05/04/18 documented as of this encounter
--- OUTSIDE RECORDS SUMMARY | 2023-12-07 18:39 | External Medical Summary | Summary of Care ---
Author Name Unknown Organization [facility] Address [address] [place] [address] Phone [phone] Care Team Providers Care Sewing Techniques Demonstrator Name Role Phone Evelyn Andrews MD Primary Care Prov ider Reason for Visit * Reason Onset Date Comments Advice 09/12/2023 Encounter Details Date Type Department Care Team (Late st Contact Info) Description 09/12/2023 Telephone Nutrition & Weight Management, [place] [address] [place] [address] Madeline Britt RN [address] [place] [address] Advice Allergies Active Allergy Reactions Criticality Noted [...] for Sleep. 30 Tablet 3 3 Active Furosemide 20 MG Oral Tablet (Lasix) Take 1 Tablet by mouth in the morning. 7 Tablet 0 4 Active Additional Information Patient not taking.Reported on 08/15/2023 guaiFENesin-Codeine 100-10 MG/5ML Oral Syrup (Robitussin AC)Indications:COVID -19 Take 5 mL by mouth every 4 hours as needed for Cough. 120 mL 0 4 Active Nystatin 660412 UNIT/GM External Cream APPLY TO AFFECTED AREA [...] FOR DAIRRHEA 60 Tablet 0 4 Active Itgcwumbuc-BIRC-Adms eine 50-325-40 MG Oral Tablet (Fioricet)Indication s:Migraine [...] [place] (myocardial infarction) 03/01/2023 03/01/2023 Atherosclerosis of [place] co ronary artery without angina pectoris 02/08/2022 [...] malnutrition 09/28/2018 09/23/2021 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/2021 TAX INVESTIGATOR 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 02/06/2017 05/02/2018 TAX INVESTIGATOR 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 02/06/2017 07/09/2019 Iron deficiency anemia 06/28/201109/20 Overview: ICD-10 update of inactive term Iron deficiency anemia 06/28/201109/20 Overview: ICD-10 update of inactive term Iron deficiency anemia pat paulino to inadequate dietary iron intake 09/26/2008 3 Infected postoperative seroma 06/02/2003 09/20/2012 [facility]20030 11/2022 documented as of this encounter (statuses as of 09/19/2023) Immunizations Name Administration Dates Next Due COVID-19 mRNA, LNP-s, No Pre serve, 2-Dose Series ([employer]) 02/16/2021,11/25/2020,11/01/2020 COVID-19, MRNA-LNP, 23-24, P F, 30 MCG/0.3 mL, 12 YRS AND ABOVE, IM ([employer]-Comirnaty) 04/10/2023 Covid-19, Mrna, Lnp-s, Pf, B ivalent, 30 Mcg, IM, 12 yrs and above (Pfizer) 04/12/2022 Pneumococcal Conjugate Vacci ne, 20-valent ([id number]) 12/10/2021 Pneumococcal Polysaccharide PPV23 (Pneumovax) 07/21/2009 Seasonal [...] Miscellaneous Notes * Telephone Encounter - Evelyn Andrews MD - 09/13/2023 8:36 AM EDT I DO think there is value in hospital admission due to her severe malnutrition and history of treatment plan non-compliance. Hospital admission would allow us to feed her, increase strength, and provide opportunity to clarify goals of care. * Telephone Encounter - Madeline Britt RN - 09/12/2023 5:17 PM EDT Pt calls as she feels like she needs admitted to the hospital. Her chief complaint is her coccyx isvery tender and sore . She does not have a recent weight for me. She has been doing the TPN every other day. She had labs last week 09/03. She did not go for a dressing change on Monday as she did not feel well. She is eating some. She reports her psychiatrist and brother think she needs admitted. Dr. Forbes does not think there is value in admission. I explained that the plan for admission previously was to do daily TPN and see if we saw benefit aswe were unsure if she was truly infusing her TPN. Only if she was willing to resume daily TPN wouldthis make sense. She reports that she now could "have a life" with the every other day infusion. She is hoping to talk to Dr. Wilkerson for his opinion. Will try for appt for 09/13. Madeline Britt, MSN, RN Clinical Nurse Specialist [address] [address] documented in this encounter Plan of Treatment Upcoming Encounters Date Type Department Care Team (Late st Contact Info) Description 09/26/2023 11:20 AM EDT Office Visit Family Medicine [address] [phone] Evelyn Andrews MD [address] [place] [address] 10/02/2023 9:20 AM EDT Office Visit Neurology [facility] [address] [place] [address] Aris Mohr MD [address] [place] [address] 10/13/2023 5:30 PM EDT Telemedicine Psychiatry, [place] [address] [place] [address] Alexis Serna MD [address] [place] [address] 10/17/2023 3:20 PM EDT Office Visit Gastroenterology, [facility] [address] [facility] [place] [address] Milind Yadav MD [address] [place] [address] 12/04/2023 3:45 PM EDT Office Visit Urology, [facility] [address] [place] [address] Christopher Almonte MD [address] [place] [...] Additional history exists CKD HGB USE SMARTSET 55738 06/12/202406/12, 03/13/2023, 03/13/2023, Additional history exists Albumin/Creatinine Ratio 08/23/2024 024, 08/23/2022, 09/20/2021 CKD PHOS USE SMARTSET 22026 09/03/202408/24, 08/21/2023, 08/14/2023, Additional history exists DTaP,Tdap,and [...] this encounter Medical Devices Implanted Type Area Improvement Advisor Device Identifier Shelf Expiration Date Model / Serial / Lot Stent Axios 20mm - [id number] Implanted:Qty: 1 on 01/04/2021 by Leyda Garcia MD at OR [facility] N/A: Stomach [employer] : ENDOSCOPY 11/20/2021 [id number] / / [id number] documented as of this encounter Advance Directives Documents on File Type Date Recorded Patient Asphalt Engineer Expl anation POLST 01/03/2022 [place] OR [facility] FOR LIFE-SUSTAINING TREATMENT Latest Code [...] Other - (no specific identity) Health Care Asphalt Engineer (appointed verbally by patient or by statute hierarchy) Rowdy Mykel Efra Health Care Asphalt Engineer (appointed verbally by patient or by statute hierarchy) Care Teams Sewing Techniques Demonstrator Relationship Specialty Start Date End Date Evelyn Andrews MD [address] [place] [address] [place] [address] PCP - General Family Medicine 05/04/18 documented as of this encounter
--- OUTSIDE RECORDS SUMMARY | 2023-12-07 18:39 | External Medical Summary ---
Author Name Unknown Address Unknown Organization K1[facility] - [address] [place] [address] Laboratory Report Ordering Provider Test Date Status MINMAW 09/21/2023 11:28:40 Final Observation Date Value Abnormality Reference (Units ) Status Magnesium 09/21/2023 11:28:40 1.9 1.5-2.6 (m g/dL) Final Performing Location [facility] [address] [place] [address]
--- OUTSIDE RECORDS SUMMARY | 2023-12-07 18:39 | External Medical Summary ---
Author Name Unknown Address Unknown Organization K1F:[facility] - [address] [place] [address] Laboratory Report Ordering Provider Test Date Status RAMIN MAY 09/21/2023 11:28:40 Final Observation Date Value Abnormality Reference (Units ) Status WBC, Total 09/21/2023 11:28:40 5.66 4.00-10.80 (K/uL) Final RBC 09/21/2023 11:28:40 2.88 3.85-5.15 (M/uL) Final Hemoglobin 09/21/2023 11:28:40 9.3 Below low normal 12.0-15.3 (g/dL) Final HCT 09/21/2023 11:28:40 29.8 Below low normal 36.0-45.2 (%) Final MCV 09/21/2023 11:28:40 103.5 81.5-97.5 (fL) Final MCH 09/21/2023 11:28:40 32.3 27.0-34.0 (pg) Final MCHC 09/21/2023 11:28:40 31.2 32.0-36.0 (g/dL) Final RDW 09/21/2023 11:28:40 14.8 11.5-15.5 (%) Final Platelets 09/21/2023 11:28:40 330 140-400 (K/uL) Final MPV 09/21/2023 11:28:40 11.1 6.6-11.1 (fL) Final Nucleated erythrocytes/100 leukocytes [Ratio] in Blood by Automated count 09/21/2023 11:28:40 0 <=0 (/100 WBCs) Final Performing Location [facility] [address] [place] [address]
--- OUTSIDE RECORDS SUMMARY | 2023-12-07 18:39 | External Medical Summary | Summary of Care ---
Author Name Unknown Organization [facility] Address [address] [place] [address] Phone [phone] Care Team Providers Care Concrete Truck Driver Name Role Phone Evelyn Andrews MD Primary Care Prov ider Reason for Visit * Reason Onset Date Comments total parental nutrition 08/29/2023 Encounter Details Date Type Department Care Team (Late st Contact Info) Description 08/29/2023 Telephone Nutrition & Weight Management, [facility] [address] [place], [place] [phone] Madeline Britt RN [address] [place] [address] total parental nutrition Allergies Active Allergy Reactions Criticality Noted Date Comments Amoxicillin Edema airway High 01/22/2003 Oxybutynin 03/25/2023 Mouth ulcers Sulfa Antibiotics Edema airway High 08/15/2006 documented as of this encounter (statuses as of 09/12/2023) Medications Medication Sig Dispensed Refills Start Date [...] Cough. 120 mL 0 4 Active Nystatin 303753 UNIT/GM External Cream APPLY TO AFFECTED AREA [...] FOR DAIRRHEA 60 Tablet 0 4 Active Eqagbjotgv-BSJX-Ddcl eine 50-325-40 MG Oral Tablet (Fioricet)Indication s:Migraine [...] as of this encounter (statuses as of 09/12/2023) Active Problems Problem Noted Date Diagnosed Date [...] as of this encounter (statuses as of 09/12/2023) Resolved Problems Problem Noted Date Diagnosed Date Resolved Date Old MD (myocardial infarction) 03/01/2023 03/01/2023 Atherosclerosis of [place] co ronary artery without angina [...] malnutrition 09/28/2018 09/23/2021 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/2021 PAYROLL MASTER 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 02/06/2017 05/02/2018 PAYROLL MASTER 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 02/06/2017 07/09/2019 Iron deficiency anemia 06/28/201109/20 Overview: ICD-10 update of inactive term Iron deficiency anemia 06/28/201109/20 Overview: ICD-10 update of inactive term Iron deficiency anemia pat paulino to inadequate dietary iron intake 09/26/2008 3 Infected postoperative seroma 06/02/2003 09/20/2012 PANNICULITIS, UNSP SITE 05/14/2003 09/0 11/2022 documented as of this encounter (statuses as of 09/12/2023) Immunizations Name Administration Dates Next Due COVID-19 mRNA, LNP-s, No Pre serve, 2-Dose Series ([employer]) 02/16/2021,11/25/2020,11/01/2020 COVID-19, MRNA-LNP, 23-24, P F, 30 MCG/0.3 mL, 12 YRS AND ABOVE, IM ([employer]-Comirnat[employer]) 04/10/2023 Covid-19, Mrna, Lnp-s, Pf, B ivalent, 30 Mcg, IM, 12 yrs and above ([employer]) 04/12/2022 Pneumococcal Conjugate Vacci ne, 20-valent ([id number]) 12/10/2021 Pneumococcal Polysaccharide PPV23 (Pneumovax) 07/21/2009 Seasonal [...] encounter Miscellaneous Notes * Telephone Encounter - Madeline Britt RN - 08/29/2023 2:53 PM EST Phone call from pt . She had spoke to PCP about the point of the inpatient admission. Pt aware that we were doubting her actually administering the TPN and that was part of the point ofadmitting her . She is adamant that she has been infusing and that the pump did not prove anything . She really wants her quality of life to improve and she feels if she can do the TPN every other daythat would allow her to have a "life" Discussed with Dr. Wilkerson. We cannot just restart her old TPN due to risk of refeeding. Pt will go for labs 09/03. (I will be out of office). If [facility] infusion pharmacist can review with Dr. Wilkerson and plan on doing TPN every other day. 4 days one week , three next. - with delivery for next week. She understands she will have no TPN again this week. Madeline Britt, MSN, RN, Clinical Nurse Specialist [address] [address] documented in this encounter Plan of Treatment Upcoming Encounters Date Type Department Care Team (Late st Contact Info) Description 09/18/2023 10:30 AM EDT Immunization/Injection Hematology/Oncology Treatment, [place] [address] [place] [phone] Nurse, Med [address] [place] [address] 09/26/2023 11:20 AM EDT Office Visit Family Medicine [address] [phone] Evelyn Andrews MD [address] [place] [address] 10/02/2023 9:20 AM EDT Office Visit Neurology [facility] [address] [place] [address] Aris Mohr MD [address] [place] [address] 10/13/2023 5:30 PM EDT Telemedicine Psychiatry, [facility] [address] [place] [address] Alexis Serna MD [address] [place] [phone] 10/17/2023 3:20 PM EDT Office Visit Gastroenterology, [facility] [address] [place] [address] Milind Yadav MD [address] [place] [address] 12/04/2023 3:45 PM EDT Office Visit Urology, [facility] [address] [place] [address] Christopher Almonte MD [address] [place] [address] Health Maintenance Due Date Last Done Comments [...] Additional history exists CKD HGB USE SMARTSET 60836 06/12/202406/12, 03/13/2023, 03/13/2023, Additional history exists Albumin/Creatinine Ratio 08/23/2024 024, 08/23/2022, 09/20/2021 CKD PHOS USE SMARTSET 23480 09/03/202408/24, 08/21/2023, 08/14/2023, Additional history exists DTaP,Tdap,and [...] this encounter Medical Devices Implanted Type Area Top Executive Device Identifier Shelf Expiration Date Model / Serial / Lot Stent Axios 20mm - [id number] Implanted:Qty: 1 on 01/04/2021 by Leyda Garcia MD at OR [facility] N/A: Stomach [employer] : ENDOSCOPY 11/20/2021 [id number] / / [id number] documented as of this encounter Advance Directives Documents on File Type Date Recorded Patient Gas Mask Inspector Expl anation POLST 01/03/2022 [place] OR [facility] FOR LIFE-SUSTAINING TREATMENT [...] Other - (no specific identity) Health Care Gas Mask Inspector (appointed verbally by patient or by statute hierarchy) Rowdy Mykel Sibling Health Care Gas Mask Inspector (appointed verbally by patient or by statute hierarchy) Care Teams Concrete Truck Driver Relationship Specialty Start Date End Date Evelyn Andrews MD [address] [place] [address] [place] [phone] PCP - General Family Medicine 05/04/18 documented as of this encounter
--- OUTSIDE RECORDS SUMMARY | 2023-12-07 18:39 | External Medical Summary ---
Author Name Unknown Address Unknown Organization : Laboratory Report Ordering Provider Test Date Status RAMIN MAY 09/21/2023 08:01:28 Final Observation Date Value Abnormality Reference (Units ) Status Glucose Point of Care 09/21/2023 08:01:28 92 70-120 (mg/dL) Final Performing Location
--- OUTSIDE RECORDS SUMMARY | 2023-12-07 18:39 | External Medical Summary | Summary of Care ---
Author Name Unknown Organization [facility] Address [address] [place] [address] Phone [phone] Care Team Providers Care House Painting Instructor Name Role Phone Leonardo Jimenez MD Primary Care Prov ider Reason for Visit * Reason Onset Date Comments Medication Refill 09/17/2023 Encounter Details Date Type Department Care Team (Late st Contact Info) Description 09/17/2023 Refill Family Medicine [address] [phone] Leonardo Jimenez MD [address] [place] [address] [place] [address] Migraine variant; Copper deficiency myeloneuropathy (HCC); Hereditary and idiopathic peripheral neuropathy Allergies Active Allergy Reactions Criticality Noted Date [...] BY MOUTH EVERY 4 HOURS 0 07/03/19 Active Oyster Shell Calcium 500 MG Oral Tablet Take 2 Tabs by mouth daily. 60 Tab 5 04/07/20 Active Estradiol 0.1 MG/GM Vaginal Cream (Estrace) Administer 1 g into the vagina in the morning. Apply periurethrally as directed.. 42.5 g 2 05/23/20 Active Additional Information Patient not taking.Reported on 08/15/2023 Dicyclomine HCl 20 MG Oral Tablet (Bentyl)Indication [...] the morning. 90 Tablet 3 04/03/20 23 Active Additional Information Patient not taking.Reported on 08/15/2023 Mirtazapine 45 MG Oral Tablet (Remeron)Indicatio ns:Recurrent [...] in the morning. 7 Tablet 0 06/27/19 24 Active Additional Information Patient not taking.Reported on 08/15/2023 guaiFENesin-Codein e 100-10 MG/5ML Oral Syrup (Robitussin AC)Indications:COV ID-19 Take 5 mL by mouth every 4 hours as needed for Cough. 120 mL 0 06/28/19 24 Active Nystatin 878563 UNIT/GM External Cream APPLY TO AFFECTED AREA TWICE A DAY 30 g 2 06/30/19 24 Active OLANZapine 5 MG Oral Tablet Disintegrating (zyPREXA zyDIS) Place 1 Tablet on tongue in the morning. 30 Tablet 5 07/04/19 24 Active Omeprazole 20 MG Oral Capsule Delayed Release (PriLOSEC) TAKE 1 CAPSULE BY MOUTH EVERY DAY IN THE MORNING 90 Capsule 4 07/26/19 24 Active Diphenoxylate-Atro pine 2.5-0.025 MG Oral Tablet (Lomotil)Indicatio ns:Migraine variant TAKE ONE TABLET BY MOUTH 4 TIMES DAILY NEEDED FOR DAIRRHEA 60 Tablet 0 08/09/19 24 Active Promethazine HCl 25 MG Oral Tablet (Phenergan)Indicat ions:Nausea Take 1 Tablet by mouth every 8 hours as needed for Nausea. 30 Tablet 3 08/15/19 24 Active Rizatriptan Benzoate 10 MG Oral Tablet (Maxalt)Indication s:Migraine variant TAKE 1 TAB BY MOUTH DAILY NEEDED FOR MIGRAINE. 10 Tablet 5 09/18/19 24 Active Pisvzkwhtr-XTMD-Eh ffeine 50-325-40 MG Oral Tablet (Fioricet)Indicati ons:Migraine variant TAKE ONE TABLET EVERY 6 HOURS NEEDED FOR PAIN 90 Tablet 1 09/19/19 24 Active Pregabalin 25 MG Oral Capsule (Lyrica)Indication s:Copper deficiency myeloneuropathy (HCC),Hereditary and idiopathic peripheral neuropathy Take 1 Capsule by mouth in the morning and 1 Capsule before bedtime. 60 Capsule 5 09/19/19 24 Active Rizatriptan Benzoate 10 MG Oral Tablet (Maxalt)Indication s:Migraine variant TAKE 1 TAB BY MOUTH DAILY NEEDED FOR MIGRAINE. 10 Tablet 5 06/14/20 23 024 Discontinued(Re fill) Ondansetron 4 MG Oral Tablet Disintegrating (Zofran)Indication s:Intractable vomiting with nausea PLACE 1 TABLET ON TONGUE EVERY 8 HOURS NEEDED FOR NAUSEA. 90 Tablet 1 07/26/19 24 024 Discontinued Plucefflym-RZCI-Lz ffeine 50-325-40 MG Oral Tablet (Fioricet)Indicati ons:Migraine variant TAKE ONE TABLET EVERY 6 HOURS NEEDED FOR PAIN 90 Tablet 1 08/15/19 24 024 Discontinued(Re fill) Pregabalin 25 MG Oral Capsule (Lyrica)Indication s:Copper deficiency myeloneuropathy (HCC),Hereditary and idiopathic peripheral neuropathy Take 1 Capsule by mouth in the morning and 1 Capsule before bedtime. 60 Capsule 5 08/15/19 24 024 Discontinued(Re fill) documented as of this [...] [place] (myocardial infarction) 03/01/2023 03/01/2023 Atherosclerosis of [place] co ronary artery without angina pectoris 02/08/2022 [...] malnutrition 09/28/2018 09/23/2021 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/2021 FINANCE BUSINESS PARTNER 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 02/06/2017 05/02/2018 [employer]NER 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 02/06/2017 07/09/2019 Iron deficiency anemia 06/28/201109/20 Overview: ICD-10 update of inactive term Iron deficiency anemia 06/28/201109/20 Overview: ICD-10 update of inactive term Iron deficiency anemia pat paulino to inadequate dietary iron intake 09/26/2008 3 Infected postoperative seroma 06/02/2003 09/20/2012 PANNICULITIS, [facility] SITE 05/14/200311/2022 documented as of this encounter (statuses as of 09/19/2023) Immunizations Name Administration Dates Next Due COVID-19 mRNA, LNP-s, No Pre serve, 2-Dose Series ([employer]) 02/16/2021,11/25/2020,11/01/2020 COVID-19, MRNA-LNP, 23-24, P F, 30 MCG/0.3 mL, 12 YRS AND ABOVE, IM ([employer]Comirnat) 04/10/2023 Covid-19, Mrna, Lnp-s, Pf, B ivalent, 30 Mcg, IM, 12 yrs and above (Pfizer) 04/12/2022 Pneumococcal Conjugate Vacci ne, 20-valent ([id number]) 12/10/2021 Pneumococcal Polysaccharide PPV23 (Pneumovax) 07/21/2009 Seasonal [...] encounter Miscellaneous Notes * Telephone Encounter - Leonardo Jimenez MD - 09/19/2023 11:49 AM EDTSigned Prescriptions: Disp Refills Rizatriptan Benzoate 10 MG Oral Tablet (Ma*10 Tab*5 Sig: TAKE 1 TAB BY MOUTH DAILY NEEDED FOR MIGRAINE. Authorizing Provider: LEONARDO JIMENEZ Ordering User: YIFAN MARAVILLA Imwxtwdvav-AFCQ-Iodffbkv 50-325-40 MG Oral*90 Tab*1 Sig: TAKE ONE TABLET EVERY 6 HOURS NEEDED FOR PAIN Authorizing Provider: LEONARDO JIMENEZ Pregabalin 25 MG Oral Capsule (Lyrica) 60 Cap*5 Sig: Take 1 Capsule by mouth in the morning and 1 Capsule before bedtime. Authorizing Provider: LEONARDO JIMENEZ * Telephone Encounter - Yifan Maravilla, [facility] - 09/18/2023 3:46 PM EDT Pending Prescriptions: Disp Refills Bofpdjusvn-XTFS-Ridgxgwp 50-325-40 MG Oral*90 Tab*1 Sig: TAKE ONE TABLET EVERY 6 HOURS NEEDED FOR PAIN Pregabalin 25 MG Oral Capsule (Lyrica) 60 Cap*5 Sig: Take 1 Capsule by mouth in the morning and 1 Capsule before bedtime. Signed Prescriptions: Disp Refills Rizatriptan Benzoate 10 MG Oral Tabl et (Ma*10 Tab*5 Sig: TAKE 1 TAB BY MOUTH DAILY NEEDED FOR MIGRAINE. Authorizing Provider: LEONARDO JIMENEZ Ordering User: YIFAN MARAVILLA * Telephone Encounter - Yifan Maravilla [facility] - 09/18/2023 3:43 PM EDT I have reviewed the patients controlled substance dispensing history in the Prescription Drug Monitoring Program in compliance with the [facility] regulations before prescribing a controlled substance. PDMP checked on 09/18/2023. Pending Prescriptions: Disp Refills Rairypnews-KZXN-Rusfkvqf 50-325-40 MG Ora*90 Tab*1 Sig: TAKE ONE TABLET EVERY 6 HOURS NEEDED FOR PAIN Pregabalin 25 MG Oral Capsule (Lyrica) 60 Cap*5 Sig: Take 1 Capsule by mouth in the morning and 1 Capsule before bedtime. Signed Prescriptions: Disp Refills Rizatriptan Benzoate 10 MG Oral Tablet (Ma*10 Tab*5 Sig: TAKE 1 TAB BY MOUTH DAILY NEEDED FOR MIGRAINE. Authorizing Provider: LEONARDO JIMENEZ Ordering User: YIFAN MARAVILLA Last Visit: 08/15/2023 (in office), 04/05/2022 (telemedicine) Next Visit: 09/26/2023 Date medication was last filled: 08/15/2023 Date medication is due for refill: 09/05/2023, 09/13/2023 Pharmacy: [id number] [place] Is this request for a controlled substance? Yes and Urine Drug Screen Not completed Toxicology results: No results found. However, due to the size of the patient record, not all encounters were searched.Please check Results Review for a complete set of results. Please approve if appropriate. Thank You, Yifan Maravilla, Pharm-D Clinical Pharmacist [facility] ([facility]) (Formerly [facility]) [phone] 09/18/2023, 3:44 PM documented in this encounter Plan of Treatment Upcoming Encounters Date Type Department Care Team (Rancho Contact Info) Description 09/26/2023 11:20 AM EDT Office Visit Family Medicine [address] [place] [phone] Leonardo Jimenez MD [address] [place] [address] [place] [address] 10/02/2023 9:20 AM EDT Office Visit Neurology [facility] [place] [address] Aris Mohr MD [address] [facility] [place] [address] 10/13/2023 5:30 PM EDT Telemedicine Psychiatry, [place] [address], [place] [phone] Alexis Serna MD [address] [place] [address] 10/17/2023 3:20 PM EDT Office Visit Gastroenterology, [facility] [address] [facility] [place] [address] Milind Yadav MD [address] [facility] [place] [address] 12/04/2023 3:45 PM EDT Office Visit Urology, [facility] 132 [facility] [place] [address] Christopher Almonte MD [address] [facility] [place] [address] [place] [address] Health Maintenance Due Date Last Done Comments [...] Additional history exists CKD HGB USE SMARTSET 18162 06/12/202406/12, 03/13/2023, 03/13/2023, Additional history exists Albumin/Creatinine Ratio 08/23/2024 024, 08/23/2022, 09/20/2021 CKD PHOS USE SMARTSET 77484 09/03/202408/24, 08/21/2023, 08/14/2023, Additional history exists DTaP,Tdap,and [...] this encounter Medical Devices Implanted Type Area Chimney Builder Helper Device Identifier Shelf Expiration Date Model / Serial / Lot Stent Axios 20mm - [id number] Implanted:Qty: 1 on 01/04/2021 by Leyda Garcia MD at OR [facility] N/A: Stomach [employer] : ENDOSCOPY 11/20/2021 [id number] / / [id number] documented as of this encounter Visit Diagnoses Diagnosis Migraine variant Variants of migraine, not elsewhere classified, without mention of intractable migraine without mention of status migrainosus 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 Hereditary and idiopathic peripheral neuropathy Unspecified hereditary and idiopathic peripheral neuropathy documented in this encounter Advance Directives Documents on File Type Date Recorded Patient Blood Bank Order Control Clerk Expl anation POLST 01/03/2022 [place] [facility] LIFE-SUSTAINING TREATMENT Latest Code Status on [...] Other - (no specific identity) Health Care Blood Bank Order Control Clerk (appointed verbally by patient or by statute hierarchy) Rowdy Hogue Sibling Health Care Blood Bank Order Control Clerk (appointed verbally by patient or by statute hierarchy) Care Teams House Painting Instructor Relationship Specialty Start Date End Date Leonardo Jimenez MD [address] [place] [address] [place] [phone] PCP - General Family Medicine 05/04/18 documented as of this encounter
--- OUTSIDE RECORDS SUMMARY | 2023-12-07 18:39 | External Medical Summary | Summary of Care ---
Author Name Unknown Organization [facility] Address [address] [place] [address] Phone [phone] Care Team Providers Care Office Machine Technician Name Role Phone Evelyn Andrews MD Primary Care Prov ider Encounter Details Date Type Department Care Team (Late st Contact Info) Description 09/21/2023 Population Health External Data Unspecified Department Allergies Active Allergy Reactions Criticality Noted Date Comments Amoxicillin Edema airway High 01/22/2003 Oxybutynin 03/25/2023 Mouth ulcers Sulfa Antibiotics Edema airway High 08/15/2006 documented as of this encounter (statuses as of 09/21/2023) Medications Medication Sig Dispensed Refills Start Date [...] mL 0 4 Suspended Additional Information Nystatin 908065 UNIT/GM External Cream APPLY TO AFFECTED AREA [...] 10 Tablet 5 4 Suspended Additional Information Htnzcjbfeq-DPCT-Dio feine 50-325-40 MG Oral Tablet (Fioricet)Indicatio ns:Migraine [...] as of this encounter (statuses as of 09/21/2023) Active Problems Problem Noted Date Diagnosed Date Tobacco abuse 09/20/2023 Fall at home 09/20/2023 [...] as of this encounter (statuses as of 09/21/2023) Resolved Problems Problem Noted Date Diagnosed Date Resolved Date Old [place] (myocardial infarction) 03/01/2023 03/01/2023 Atherosclerosis of [place] co ronary artery without angina pectoris 02/08/2022 [...] malnutrition 09/28/2018 09/23/2021 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/2021 OPTOMETRIC AIDE 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 02/06/2017 05/02/2018 OPTOMETRIC AIDE 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 02/06/2017 07/09/2019 Iron deficiency anemia 06/28/201109/20 Overview: ICD-10 update of inactive term Iron deficiency anemia 06/28/201109/20 Overview: ICD-10 update of inactive term Iron deficiency anemia pat paulino to inadequate dietary iron intake 09/26/2008 3 Infected postoperative seroma 06/02/2003 09/20/2012 PANNICULITIS, [facility] SITE 05/14/200311/2022 documented as of this encounter (statuses as of 09/21/2023) Immunizations Name Administration Dates Next Due COVID-19 mRNA, LNP-s, No Pre serve, 2-Dose Series ([employer]) 02/16/2021,11/25/2020,11/01/2020 COVID-19, MRNA-LNP, 23-24, P F, 30 MCG/0.3 mL, 12 YRS AND ABOVE, IM ([employer]-ComirnatAutoeBid) 04/10/2023 Covid-19, Mrna, Lnp-s, Pf, B ivalent, 30 Mcg, IM, 12 yrs and above (Pfizer) 04/12/2022 Pneumococcal Conjugate Vacci ne, 20-valent ([id number]) 12/10/2021 Pneumococcal Polysaccharide PPV23 (Pneumovax) 07/21/2009 Seasonal [...] AM EDT Office Visit Family Medicine [address] [phone] Evelyn Andrews MD [address] [place] [address] [place] [address] 10/02/2023 9:20 AM EDT Office Visit [facility] [place] [address] Aris Mohr MD 200 [facility] [place] [address] 10/13/2023 5:30 PM EDT Telemedicine Psychiatry, [address] [address] Alexis Serna MD [address] [place] [address] 10/17/2023 3:20 PM EDT Office Visit Gastroenterology, [facility] [address] [facility] [place] [address] Milind Yadav MD [facility] [address] 12/04/2023 3:45 PM EDT Office Visit Urology, [facility] [place] [place] [address] Christopher Almonte MD [address] [place] [address] [place] [address] Health Maintenance Due Date Last Done [...] Additional history exists CKD HGB USE SMARTSET 51744 06/12/202406/12, 03/13/2023, 03/13/2023, Additional history exists Albumin/Creatinine Ratio 08/23/2024 024, 08/23/2022, 09/20/2021 CKD PHOS USE SMARTSET 24628 09/03/202408/24, 08/21/2023, 08/14/2023, Additional history exists DTaP,Tdap,and [...] this encounter Medical Devices Implanted Type Area Transition Program Manager Device Identifier Shelf Expiration Date Model / Serial / Lot Stent Axios 20mm - [id number] Implanted:Qty: 1 on 01/04/2021 by Leyda Garcia MD at OR [facility] N/A: Stomach [employer] : ENDOSCOPY 11/20/2021 [id number] / / [id number] documented as of this encounter Advance Directives Documents on File Type Date Recorded Patient Snow Ranger Expl anation POLST 01/03/2022 [facility]-SUSTAINING T[facility]AT[facility] Latest Code Status [...] Other - (no specific identity) Health Care Snow Ranger (appointed verbally by patient or by statute hierarchy) Rowdy Mykel Efra Health Care Snow Ranger (appointed verbally by patient or by statute hierarchy) Care Teams Office Machine Technician Relationship Specialty Start Date End Date Evelyn Andrews MD [address] [place] [address] [place] [address] PCP - General Family Medicine 05/04/18 documented as of this encounter
--- OUTSIDE RECORDS SUMMARY | 2023-12-07 18:39 | External Medical Summary ---
Author Name Unknown Address Unknown Organization K1F:[facility] - [address] [place] [address] Laboratory Report Ordering Provider Test Date Status MINMAW 09/21/2023 11:28:40 Final Observation Date Value Abnormality Reference (Units ) Status Phosphate 09/21/2023 11:28:40 5.0 Above high normal 2. 5-4.8 (mg/dL) Final Performing Location [facility] [address] [place] [address]
--- OUTSIDE RECORDS SUMMARY | 2023-12-07 18:39 | External Medical Summary ---
Author Name Unknown Address Unknown Organization K1F:[facility] - [address] [place] [address] Laboratory Report Ordering Provider Test Date Status VIVIANE BECKER 09/21/2023 11:28:40 Final Observation Date Value Abnormality Reference (Units ) Status Calcium.ionized [Moles/volume] in Serum or Plasma by Ion-selective membrane electrode (ISE) 09/21/2023 11:28:40 1.34 Above high normal 1.13-1.32 (mmol/L) Final This test was developed and its performance characteristics dtermined by [employer]. It has not been cleared or approved by the [place] Food and Drug Administration Performing Location [facility] [address] [place] [address]
--- OUTSIDE RECORDS SUMMARY | 2023-12-07 18:39 | External Medical Summary ---
Author Name Unknown Address Unknown Organization : Laboratory Report Ordering Provider Test Date Status SERGIO MARKS 09/21/2023 00:39:36 Final Observation Date Value Abnormality Reference (Units ) Status Glucose Point of Care 09/21/2023 00:39:36 98 70-120 (mg/dL) Final Performing Location
--- OUTSIDE RECORDS SUMMARY | 2023-12-07 18:40 | External Medical Summary ---
Author Name Unknown Address Unknown Organization K09:[facility] - [address] [place] [address] Laboratory Report Ordering Provider Test Date Status TONY RAMIREZ 09/04/2023 10:38:22 Final Observation Date Value Abnormality Reference (Units ) Status BUN 09/04/2023 10:38:22 23 Above high normal 6-20 (mg/dL) Final Creatinine 09/04/2023 10:38:22 1.0 0.5-1.0 (mg/dL) Final Glomerular filtration rate/1.73 sq M.predicted [Volume Rate/Area] in Serum, Plasma or Blood by Creatinine-based formula (CKD-EPI) 09/04/2023 10:38:22 64 >=60 (mL/min) Final eGFR is calculated based on the CKD-EPI 2020 equation SODIUM 09/04/2023 10:38:22 139 135-146 (m mol/L) Final Potassium 09/04/2023 10:38:22 4.5 3.5-5.1 (m mol/L) Final Cl 09/04/2023 10:38:22 111 Above high normal 98 -107 (mmol/L) Final CO2 09/04/2023 10:38:22 17 Below low normal 22- 32 (mmol/L) Final Anion gap 09/04/2023 10:38:22 11 7-15 (mmol /L) Final Glucose 09/04/2023 10:38:22 117 70-120 (mg /dL) Final Albumin 09/04/2023 10:38:22 3.6 Below low normal 3.8 -5.0 (g/dL) Final AST (Aspartate aminotransferase) 09/04/2023 10:38:22 21 10-35 (U/L) Fin al Alk Phos 09/04/2023 10:38:22 118 35-130 (U/ L) Final Bilirubin, Total 09/04/2023 10:38:22 0.2 <=1 .2 (mg/dL) Final Calcium 09/04/2023 10:38:22 8.9 8.4-10.2 ( mg/dL) Final Protein 09/04/2023 10:38:22 6.3 6.0-8.3 (g /dL) Final ALT (Alanine aminotransferase) 09/04/2023 10:38:22 17 10-35 (U/L) Matthew belle Performing Location [facility] - [address] [place] [address]
--- OUTSIDE RECORDS SUMMARY | 2023-12-07 18:40 | External Medical Summary | Summary of Care ---
Author Name Unknown Organization [facility] Address [address] [place] [address] Phone [phone] Care Team Providers Care Reverberatory Furnace Supervisor Name Role Phone Evelyn Andrews MD Primary Care Prov ider Reason for Visit * Reason Onset Date Comments Order Request 08/16/2023 Encounter Details Date Type Department Care Team (Late st Contact Info) Description 08/16/[address] [phone] Evelyn Andrews MD [address] [place] [address] [place] [address] Order Request Allergies Active Allergy Reactions Criticality Noted Date Comments Amoxicillin Edema airway High 01/22/2003 Oxybutynin 03/25/2023 Mouth ulcers Sulfa Antibiotics Edema airway High 08/15/2006 documented as of this encounter (statuses as of 09/08/2023) Medications Medication Sig Dispensed Refills Start Date [...] Cough. 120 mL 0 4 Active Nystatin 650248 UNIT/GM External Cream APPLY TO AFFECTED AREA [...] FOR DAIRRHEA 60 Tablet 0 4 Active Vbwdnycdkg-SUDF-Cqta eine 50-325-40 MG Oral Tablet (Fioricet)Indication s:Migraine [...] before bedtime. 60 Capsule 5 4 Active Vitamin D (Ergocalciferol) 1.25 MG (57752 UT) Oral Capsule (Drisdol)Indications :Diarrhea due to malabsorption TAKE ONE CAPSULE BY MOUTH EVERY OTHER DAY 12 Capsule 6 3 08/26/19 24 documented as of this encounter (statuses as of 09/08/2023) Active Problems Problem Noted Date Diagnosed Date [...] as of this encounter (statuses as of 09/08/2023) Resolved Problems Problem Noted Date Diagnosed Date Resolved Date Old [place] (myocardial infarction) 03/01/2023 03/01/2023 Atherosclerosis of [place] co ronary artery without angina pectoris 02/08/2022 [...] malnutrition 09/28/2018 09/23/2021 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/2021 PATIENT CARE PROVIDER 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 02/06/2017 05/02/2018 PATIENT CARE PROVIDER 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 02/06/2017 07/09/2019 Iron deficiency anemia 06/28/201109/20 Overview: ICD-10 update of inactive term Iron deficiency anemia 06/28/201109/20 Overview: ICD-10 update of inactive term Iron deficiency anemia pat paulino to inadequate dietary iron intake 09/26/2008 3 Infected postoperative seroma 06/02/2003 09/20/2012 PANNICULITIS, UNSP SITE 05/14/200311/2022 documented as of this encounter (statuses as of 09/08/2023) Immunizations Name Administration Dates Next Due COVID-19 mRNA, LNP-s, No Pre serve, 2-Dose Series (Rippld) 02/16/2021,11/25/2020,11/01/2020 COVID-19, MRNA-LNP, 23-24, P F, 30 MCG/0.3 mL, 12 YRS AND ABOVE, IM (PFIZER-Comirnaty) 04/10/2023 Covid-19, Mrna, Lnp-s, Pf, B ivalent, 30 Mcg, IM, 12 yrs and above (Pfizer) 04/12/2022 Pneumococcal Conjugate Vacci ne, 20-valent ([id number]) 12/10/2021 Pneumococcal Polysaccharide PPV23 (Pneumovax) 07/21/2009 Seasonal [...] Telephone Encounter - Serene Vargas LPN - 09/08/2023 4:19 PM EDT [facility] this item is not covered by insurance. The DME supplier left message for the patient for out of pocket cost. Aug 30, 2023, 9:38 AM [facility] We are cancelling this order per DME request. They state patient no longer wants supplies. * Telephone Encounter - Serene Vargas LPN - 08/23/2023 11:12 AM EST To better serve your patient's needs, order [id number] for Chandrika Hogue (1965) is now being fulfilled by [employer]. If you need assistance with this order, please call . * Telephone Encounter - Serene Vargas LPN - 08/16/2023 7:24 AM EST Gel cushion order sent through [facility] documented in this encounter Plan of Treatment Upcoming Encounters Date Type Department Care Team (Late st Contact Info) Description 09/11/2023 10:30 AM EDT Immunization/Injection Hematology/Oncology Treatment, [address] [phone] Nurse, Med 4 200 [place] [address] 09/12/2023 3:20 PM EDT Office Visit Nephrology [address] [place] [address] Eliza Boles MD [address] [place] [address] [place] [address] 09/18/2023 10:30 AM EDT Immunization/Injection Hematology/Oncology Treatment, [address] [phone] Nurse, Med 4 200 [place] [address] 09/26/2023 11:20 AM EDT Office Visit Family Medicine [address] [place] [phone] Evelyn Andrews MD [address] [place] [address] [place] [address] 10/02/2023 9:20 AM EDT Office Visit Neurology [facility] [place] [address] Aris Mohr MD [address] [facility] [place] [address] 10/13/2023 5:30 PM EDT Telemedicine Psychiatry, [place] [address] [place] [address] Alexis Serna MD [address] [place] [address] 10/17/2023 3:20 PM EDT Office Visit Gastroenterology, [facility] [address] [facility] [place] [address] Milind Yadav MD 132 [facility] [place] [address] 12/04/2023 3:45 PM EDT Office Visit Urology, [facility] [address] [facility] [place] [address] Christopher Almonte MD [address] [facility] [address] [place] [address] Health Maintenance Due Date Last Done [...] Additional history exists CKD HGB USE SMARTSET 95809 06/12/202406/12, 03/13/2023, 03/13/2023, Additional history exists Albumin/Creatinine Ratio 08/23/2024 024, 08/23/2022, 09/20/2021 CKD PHOS USE SMARTSET 25709 09/03/202408/24, 08/21/2023, 08/14/2023, Additional history exists DTaP,Tdap,and [...] this encounter Medical Devices Implanted Type Area Event Decorator And Designer Device Identifier Shelf Expiration Date Model / Serial / Lot Stent Axios 20mm - [id number] Implanted:Qty: 1 on 01/04/2021 by Leyda aGrcia MD at OR [facility] N/A: Stomach [employer] : ENDOSCOPY 11/20/2021 [id number] / / [id number] documented as of this encounter Advance Directives Documents on File Type Date Recorded Patient Want Ad Receiver Expl anation POLST 01/03/2022 [place] DERS FOR LIFE-SUSTAINING TREATMENT Latest Code [...] Other - (no specific identity) Health Care Want Ad Receiver (appointed verbally by patient or by statute hierarchy) Rowdy Kraus Health Care Want Ad Receiver (appointed verbally by patient or by statute hierarchy) Care Teams Reverberatory Furnace Supervisor Relationship Specialty Start Date End Date Evelyn Andrews MD [address] [place] [address] [place] [phone] PCP - General Family Medicine 05/04/18 documented as of this encounter
--- OUTSIDE RECORDS SUMMARY | 2023-12-07 18:40 | External Medical Summary | Summary of Care ---
Author Name Unknown Organization [facility] Address [address] [place] [address] Phone [phone] Care Team Providers Care Facilities Maintenance Supervisor Name Role Phone Evelyn Andrews MD Primary Care Prov ider Reason for Visit * Reason Comments Procedure PICC dressing change . Encounter Details Date Type Department Care Team (Late st Contact Info) Description 09/04/2023 10:30 AM EDT Nurse Only Hematology/Oncology Treatment, [place] [address] [place] [address] Nurse, Med [address] [place] [address] Procedure (PICC dressing change. ) Allergies Active Allergy Reactions Criticality Noted Date Comments Amoxicillin Edema airway High 01/22/2003 Oxybutynin 03/25/2023 Mouth ulcers Sulfa Antibiotics Edema airway High 08/15/2006 documented as of this encounter (statuses as of 09/05/2023) Medications Medication Sig Dispensed Refills Start Date [...] Cough. 120 mL 0 4 Active Nystatin 555968 UNIT/GM External Cream APPLY TO AFFECTED AREA [...] FOR DAIRRHEA 60 Tablet 0 4 Active Tgpiqhaykd-IKFL-Flop eine 50-325-40 MG Oral Tablet (Fioricet)Indication s:Migraine [...] as of this encounter (statuses as of 09/05/2023) Active Problems Problem Noted Date Diagnosed Date [...] as of this encounter (statuses as of 09/05/2023) Resolved Problems Problem Noted Date Diagnosed Date Resolved Date Old [place] (myocardial infarction) 03/01/2023 03/01/2023 Atherosclerosis of [place] co ronary artery without angina pectoris 02/08/2022 [...] malnutrition 09/28/2018 09/23/2021 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/2021 DIRECTOR OUTCOMES 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 02/06/2017 05/02/2018 DIRECTOR OUTCOMES 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 02/06/2017 07/09/2019 Iron deficiency anemia 06/28/201109/20 Overview: ICD-10 update of inactive term Iron deficiency anemia 06/28/201109/20 Overview: ICD-10 update of inactive term Iron deficiency anemia pat paulino to inadequate dietary iron intake 09/26/2008 3 Infected postoperative seroma 06/02/2003 09/20/2012 PANNICULITIS, UNSP SITE 05/14/2003 09/0 11/2022 documented as of this encounter (statuses as of 09/05/2023) Immunizations Name Administration Dates Next Due COVID-19 mRNA, LNP-s, No Pre serve, 2-Dose Series ([employer]) 02/16/2021,11/25/2020,11/01/2020 COVID-19, MRNA-LNP, 23-24, P F, 30 MCG/0.3 mL, 12 YRS AND ABOVE, IM ([employer]irnat[employer]anceAcar) 04/10/2023 Covid-19, Mrna, Lnp-s, Pf, B ivalent, 30 Mcg, IM, 12 yrs and above (Pfizer) 04/12/2022 Pneumococcal Conjugate Vacci ne, 20-valent ([id number]) 12/10/2021 Pneumococcal Polysaccharide PPV23 (Pneumovax) 07/21/2009 Seasonal [...] as of this encounter Nursing Notes * Sis Castle RN - 09/04/2023 12:31 PM EDT Chair 9. Patient arrived for PICC dressing change and labs from PICC. Patient tolerated procedure well. Discharged in stable condition. documented in this encounter Plan of Treatment Upcoming Encounters Date Type Department Care Team (Late st Contact Info) Description 09/11/2023 10:30 AM EDT Immunization/Injection Hematology/Oncology Treatment, [place] [address] [place] [phone] Nurse[facility] Med [facility] [address] 09/12/2023 3:20 PM EDT Office Visit Nephrology [address] [place] [address] Eliza Boles MD 200 [facility] [place] [address] 09/18/2023 10:30 AM EDT Immunization/Injection Hematology/Oncology Treatment, [place] 200 [place] [phone] Nurse, Med 200 [facility] [place] [address] 09/26/2023 11:20 AM EDT Office Visit Family Medicine [address] [phone] Evelyn Andrews MD [address] [place] [address] [place] [address] 10/02/2023 9:20 AM EDT Office Visit Neurology [facility] 200 [facility] [place] [address] Aris Mohr MD [address] [facility] [place] [address] 10/13/2023 5:30 PM EDT Telemedicine Psychiatry, [place] [address] [place] [address] Alexis Serna MD [address] [place] [phone] 10/17/2023 3:20 PM EDT Office Visit Gastroenterology, [facility] [address] [place] [address] Milind Yadav MD [address] [place] [address] 12/04/2023 3:45 PM EDT Office Visit Urology, [facility] 132 [place] [address] Christopher Almonte MD [address] [facility] [address] [place] [address] Health Maintenance Due [...] Additional history exists CKD HGB USE SMARTSET 18817 06/12/202406/12, 03/13/2023, 03/13/2023, Additional history exists Albumin/Creatinine Ratio 08/23/2024 024, 08/23/2022, 09/20/2021 CKD PHOS USE SMARTSET 47291 09/03/202408/24, 08/21/2023, 08/14/2023, Additional history exists DTaP,Tdap,and [...] this encounter Medical Devices Implanted Type Area Foreclosure Paralegal Device Identifier Shelf Expiration Date Model / Serial / Lot Stent Axios 20mm - [id number] Implanted:Qty: 1 on 01/04/2021 by Leyda Garcia MD at OR [facility] N/A: Stomach [employer] : ENDOSCOPY 11/20/2021 [id number] / / [id number] documented as of this encounter Procedures Procedure Name Priority Date/Time Associated Diagnosis Comments COMPREHENSIVE METABOLIC PANEL Routine 09/04/2023 10:38 AM EDT Severe protein-energy malnutrition (HCC) PHOSPHORUS Routine 09/04/2023 10:38 AM EDT Severe protein-energy malnutrition (HCC) CALCIUM, IONIZED Routine 09/04/2023 10:3 8 AM EDT Severe protein-energy malnutrition (HCC) MAGNESIUM Routine 09/04/2023 10:38 AM EDT Severe protein-energy malnutrition (HCC) documented in this encounter Results * (ABNORMAL) CALCIUM, IONIZED (09/04/2023 10:38 AM EDT) Calcium, Ionized 1.35(H) 1.13 - 1.32 mmol/L 09/04/2023 5:33 PM EDT LAB[facility] Comment:This test was develo ped and its performance characteristics dtermined by [employer]. It has not been cleared or approved by the [place] Food and Drug Administration Blood Venous blood specimen / Unknown Central Line / Unknown 09/04/2023 10:38 AM EDT 09/04/2023 10:50 AM EDT Mayra Crook [facility] LAB BLOOD ORDERAB LES LABORATORY [facility] [address] [place] [address] * PHOSPHORUS (09/04/2023 10:38 AM EDT) Phosphorus 3.6 2.5 - 4.8 mg/dL 09/04/2023 11:23 AM EDT [place] [address] Blood Venous blood specimen / Unknown Central Line / Unknown 09/04/2023 10:38 AM EDT 09/04/2023 10:50 AM EDT Mayra Crook [facility] LAB BLOOD ORDERAB LES [address] [place] [address] * MAGNESIUM (09/04/2023 10:38 AM EDT) Magnesium 1.7 1.5 - 2.6 mg/dL 09/04/2023 11:23 AM EDT [place] [address] Blood Venous blood specimen / Unknown Central Line / Unknown 09/04/2023 10:38 AM EDT 09/04/2023 10:50 AM EDT Mayra Crook [facility] LAB BLOOD ORDERAB LES [place] [address] [address] [place] [address] * (ABNORMAL) COMPREHENSIVE METABOLIC PANEL (09/04/2023 10:38 AM EDT) BUN 23(H) 6 - 20 mg/dL 09/04/2023 11:23 AM EDT [address] Creatinine 1.0 0.5 - 1.0 mg/dL 09/04/2023 11:23 AM EDT [facility] 56 Estimated Glomerular Filtration Rate 64 >=60 mL/min 09/04/2023 11:23 AM EDT [facility] 56 Comment:eGFR is calculated b ased on the CKD-EPI 2020 equation Sodium 139 135 - 146 mmol/L 09/04/2023 11:23 AM EDT [facility] 56 Potassium 4.5 3.5 - 5.1 mmol/L 09/04/2023 11:23 AM EDT [facility] 56 Chloride 111(H) 98 - 107 mmol/L 09/04/2023 11:23 AM EDT [facility] 56 CO2 17(L) 22 - 32 mmol/L 09/04/2023 11:23 AM EDT [address] Anion Gap 11 7 - 15 mmol/L 09/04/2023 11:23 AM EDT [address] Glucose 117 70 - 120 mg/dL 09/04/2023 11:23 AM EDT [address] Albumin 3.6(L) 3.8 - 5.0 g/dL 09/04/2023 11:23 AM EDT [address] AST 21 10 - 35 U/L 09/04/2023 11:23 AM EDT [address] Alkaline Phosphatase 118 35 - 130 U/L 09/04/2023 11:23 AM EDT [facility] 56 Bilirubin, Total 0.2 <=1.2 mg/dL 09/04/2023 11:23 AM EDT [facility] 56 Calcium 8.9 8.4 - 10.2 mg/dL 09/04/2023 11:23 AM EDT [facility] 56 Protein 6.3 6.0 - 8.3 g/dL 09/04/2023 11:23 AM EDT [facility] 56 ALT 17 10 - 35 U/L 09/04/2023 11:23 AM EDT [facility] 56 Blood Venous blood specimen / Unknown Central Line / Unknown 09/04/2023 10:38 AM EDT 09/04/2023 10:50 AM EDT Mayra Crook [facility] LAB BLOOD ORDERAB LES [facility] [address]- [address] [place] [address] documented in this encounter Visit Diagnoses Diagnosis Encounter for adjustment and management of vascular access device- Primary Severe protein-energy malnutrition (HCC) Other severe protein-calorie malnutrition documented in this encounter Administered Medications Inactive Administered Medications - up to 3 most recent administrations Medication Order MAR Action Action Date Dose Rate Site hEParin 100 UNIT/ML Lock Flush inj 500 Units 500 Units (5 mL), IV Lock, PRN Other, IV Flush, Starting on Mon09/04/23 at 1049, Until Mon09/04/23 at 1636, For 24 hours, Do not flush if lock, PICC, or central line not in place; IV infusing or unable to flush. Given 09/04/2023 10:40 AM EDT 500 Units sodium chloride 0.9 % flush central line 10 mL 10 mL, IV Push, PRN Other, IV Flush, Starting on Mon09/04/23 at 1049, Until Mon09/04/23 at 1636, For 24 hours, Do not flush if lock, PICC, or central line not in place; IV infusing or unable to flush. Given 09/04/2023 10:40 AM EDT 10 mL documented in this encounter Advance Directives Documents on File Type Date Recorded Patient Dry Roller Expl anation POLST 01/03/2022 [place] [facility] FOR LIFE-SUSTAINING TREATMENT [...] Name Relationship Healthcare Agent Relationship Communication Ariella Vervince Other - (no specific identity) Health Care Dry Roller (appointed verbally by patient or by statute hierarchy) Rowdy Mykel Efra Health Care Dry Roller (appointed verbally by patient or by statute hierarchy) Care Teams Facilities Maintenance Supervisor Relationship Specialty Start Date End Date Evelyn Andrews MD [address] [place] [address] [place] [address] PCP - General Family Medicine 05/04/18 documented as of this encounter
--- OUTSIDE RECORDS SUMMARY | 2023-12-07 18:40 | External Medical Summary | Summary of Care ---
Author Name Unknown Organization [facility] Address [address] [place] [address] Phone [phone] Care Team Providers Care Supervisor Dry Cell Assembly Name Role Phone Evelyn Andrews MD Primary Care Prov ider Reason for Visit * Reason Comments Procedure PICC dressing change . Encounter Details Date Type Department Care Team (Late st Contact Info) Description 09/04/2023 10:30 AM EDT Nurse Only Hematology/Oncology Treatment, [place] [address] [place] [address] Nurse, Med [address] [place] [address] Procedure (PICC dressing change. ) Allergies Active Allergy Reactions Criticality Noted Date Comments Amoxicillin Edema airway High 01/22/2003 Oxybutynin 03/25/2023 Mouth ulcers Sulfa Antibiotics Edema airway High 08/15/2006 documented as of this encounter (statuses as of 09/11/2023) Medications Medication Sig Dispensed Refills Start Date [...] Cough. 120 mL 0 4 Active Nystatin 815378 UNIT/GM External Cream APPLY TO AFFECTED AREA [...] FOR DAIRRHEA 60 Tablet 0 4 Active Kkexkwfxps-RLOH-Jpnk eine 50-325-40 MG Oral Tablet (Fioricet)Indication s:Migraine [...] as of this encounter (statuses as of 09/11/2023) Active Problems Problem Noted Date Diagnosed Date [...] as of this encounter (statuses as of 09/11/2023) Resolved Problems Problem Noted Date Diagnosed Date Resolved Date Old [place] (myocardial infarction) 03/01/2023 03/01/2023 Atherosclerosis of [place] co ronary artery without angina pectoris 02/08/2022 [...] malnutrition 09/28/2018 09/23/2021 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/2021 FAST 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 TEAM 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 02/06/2017 05/02/2018 FAST FOOD TEAM MEMBER 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 02/06/2017 07/09/2019 Iron deficiency anemia 06/28/201109/20 Overview: ICD-10 update of inactive term Iron deficiency anemia 06/28/201109/20 Overview: ICD-10 update of inactive term Iron deficiency anemia pat paulino to inadequate dietary iron intake 09/26/2008 3 Infected postoperative seroma 06/02/2003 09/20/2012 PANNICULITIS, UNSP SITE 05/14/2003 09/0 11/2022 documented as of this encounter (statuses as of 09/11/2023) Immunizations Name Administration Dates Next Due COVID-19 mRNA, LNP-s, No Pre serve, 2-Dose Series (Sevenpop) 02/16/2021,11/25/2020,11/01/2020 COVID-19, MRNA-LNP, 23-24, P F, 30 MCG/0.3 mL, 12 YRS AND ABOVE, IM ([employer]-ComirnatFifth Generation Systems) 04/10/2023 Covid-19, Mrna, Lnp-s, Pf, B ivalent, 30 Mcg, IM, 12 yrs and above (Pfizer) 04/12/2022 Pneumococcal Conjugate Vacci ne, 20-valent ([id number]) 12/10/2021 Pneumococcal Polysaccharide PPV23 (Pneumovax) 07/21/2009 Seasonal [...] 09/18/2023 10:30 AM EDT Immunization/Injection Hematology/Oncology Treatment, [place] [address] [place] [phone] Nurse[facility] [address] 09/26/2023 11:20 AM EDT Office Visit Family Medicine [address] [phone] Evelyn Andrews MD [address] [place] [address] [place] [address] 10/02/2023 9:20 AM EDT Office Visit Neurology [facility] 200 [facility] [place] [address] Aris Mohr MD 200 [facility] [place] [address] 10/13/2023 5:30 PM EDT Telemedicine Psychiatry, [place] [address] [place] [address] Alexis Serna MD [address] [place] [phone] 10/17/2023 3:20 PM EDT Office Visit Gastroenterology, [facility] 132 [place] [address] Milind Yadav MD 132 [place] [address] 12/04/2023 3:45 PM EDT Office Visit Urology, [facility] [address] [place] [address] Christopher Almonte MD 27 [facility] [address] [place] [address] Health Maintenance Due Date Last Done Comments [...] Additional history exists CKD HGB USE SMARTSET 34095 06/12/202406/12, 03/13/2023, 03/13/2023, Additional history exists Albumin/Creatinine Ratio 08/23/2024 024, 08/23/2022, 09/20/2021 CKD PHOS USE SMARTSET 35109 09/03/202408/24, 08/21/2023, 08/14/2023, Additional history exists DTaP,Tdap,and [...] this encounter Medical Devices Implanted Type Area Instructional Technology Instructor Device Identifier Shelf Expiration Date Model / Serial / Lot Stent Axios 20mm - [id number] Implanted:Qty: 1 on 01/04/2021 by Leyda Garcia MD at OR [facility] N/A: Stomach [employer] : ENDOSCOPY 11/20/2021 [id number] / / [id number] documented as of this encounter Procedures Procedure [...] 1.32 mmol/L 09/04/2023 5:33 PM EDT LABORATORY [facility] Comment:This test was develo ped and its performance characteristics dtermined by [employer]. It has not been cleared or approved by the US Food and Drug Administration Blood Venous blood specimen / Unknown Central Line / Unknown 09/04/2023 10:38 AM EDT 09/04/2023 10:50 AM EDT Mayra Crook [facility] LAB BLOOD ORDERAB LES LABORATORY [facility] [address] [place] [address] * PHOSPHORUS (09/04/2023 10:38 AM EDT) Phosphorus 3.6 2.5 - 4.8 mg/dL 09/04/2023 11:23 AM EDT LABORATORY [place] 56-02 Blood Venous blood specimen / Unknown Central Line / Unknown 09/04/2023 10:38 AM EDT 09/04/2023 10:50 AM EDT Mayra Crook [facility] LAB BLOOD ORDERAB LES [facility] 56 [address] [place] [address] * MAGNESIUM (09/04/2023 10:38 AM EDT) Magnesium 1.7 1.5 - 2.6 mg/dL 09/04/2023 11:23 AM EDT [facility] 56 Blood Venous blood specimen / Unknown Central Line / Unknown 09/04/2023 10:38 AM EDT 09/04/2023 10:50 AM EDT Mayra Crook [facility] LAB BLOOD ORDERAB LES [facility] 56 [address] [place] [address] * (ABNORMAL) COMPREHENSIVE METABOLIC PANEL (09/04/2023 10:38 AM EDT) BUN 23(H) 6 - 20 mg/dL 09/04/2023 11:23 AM EDT [facility] 56- Creatinine 1.0 0.5 - 1.0 mg/dL 09/04/2023 11:23 AM EDT [facility] 56- Estimated Glomerular Filtration Rate 64 >=60 mL/min 09/04/2023 11:23 AM EDT [facility] 56- Comment:eGFR is calculated b ased on the CKD-EPI 2020 equation Sodium 139 135 - 146 mmol/L 09/04/2023 11:23 AM EDT [facility] 56- Potassium 4.5 3.5 - 5.1 mmol/L 09/04/2023 11:23 AM EDT [facility] 56- Chloride 111(H) 98 - 107 mmol/L 09/04/2023 11:23 AM EDT [facility] 56- CO2 17(L) 22 - 32 mmol/L 09/04/2023 11:23 AM EDT [facility] 56- Anion Gap 11 7 - 15 mmol/L 09/04/2023 11:23 AM EDT [facility] 56- Glucose 117 70 - 120 mg/dL 09/04/2023 11:23 AM EDT [facility] 56 Albumin 3.6(L) 3.8 - 5.0 g/dL 09/04/2023 11:23 AM EDT [facility] 56 AST 21 10 - 35 U/L 09/04/2023 11:23 AM EDT [facility] 56 Alkaline Phosphatase 118 35 - 130 U/L 09/04/2023 11:23 AM EDT [address] Bilirubin, Total 0.2 <=1.2 mg/dL 09/04/2023 11:23 AM EDT [facility] 56 Calcium 8.9 8.4 - 10.2 mg/dL 09/04/2023 11:23 AM EDT [address] Protein 6.3 6.0 - 8.3 g/dL 09/04/2023 11:23 AM EDT [address] ALT 17 10 - 35 U/L 09/04/2023 11:23 AM EDT [address] Blood Venous blood specimen / Unknown Central Line / Unknown 09/04/2023 10:38 AM EDT 09/04/2023 10:50 AM EDT Mayra Crook [facility] LAB BLOOD ORDERAB LES [facility] 56- [address] [place] [address] documented in this encounter Visit Diagnoses Diagnosis [...] Documents on File Type Date Recorded Patient Ferryboat Operator Expl anation POLST 01/03/2022 [place] OR [facility] FOR LIFE-SUSTAINING TREATMENT Latest Code Status [...] Other - (no specific identity) Health Care Ferryboat Operator (appointed verbally by patient or by statute hierarchy) Rowdy Mykel Kraus Health Care Ferryboat Operator (appointed verbally by patient or by statute hierarchy) Care Teams Supervisor Dry Cell Assembly Relationship Specialty Start Date End Date Evelyn Andrews MD [address] [place] [address] [place] [phone] PCP - General Family Medicine 05/04/18 documented as of this encounter
--- OUTSIDE RECORDS SUMMARY | 2023-12-07 18:40 | External Medical Summary | Summary of Care ---
Author Name Unknown Organization [facility] Address [address] [place] [address] Phone [phone] Care Team Providers Care Coremaking Machine Setter Name Role Phone Evelyn Andrews MD Primary Care Prov ider Reason for Visit * Reason Onset Date Comments Encounter Created in Error 09/08/2023 Encounter Details Date Type Department Care Team (Late st Contact Info) Description 09/08/2023 Telephone Home Infusion, [address] [address] Encounter Created in Error Allergies Active Allergy Reactions Criticality Noted Date [...] Cough. 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 02/06/2017 05/02/2018 OFFSET ASSISTANT PRESS OPERATOR 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 02/06/2017 07/09/2019 Iron deficiency [...] mRNA, LNP-s, No Pre serve, 2-Dose Series ([employer]) 02/16/2021,11/25/2020,11/01/2020 COVID-19, MRNA-LNP, 23-24, P F, 30 MCG/0.3 mL, 12 YRS AND ABOVE, IM (S[employer]-Comirnat[employer] Corporation) 04/10/2023 Covid-19, Mrna, Lnp-s, Pf, B ivalent, 30 Mcg, IM, 12 yrs and above (Pfizer) 04/12/2022 Pneumococcal Conjugate Vacci ne, 20-valent ([id number]) 12/10/2021 Pneumococcal Polysaccharide PPV23 (Pneumovax) 07/21/2009 Seasonal [...] No 12/08/2022 documented as of this encounter Plan of Treatment Upcoming Encounters Date Type Department Care Team (Late st Contact Info) Description 09/11/2023 10:30 AM EDT Immunization/Injection Hematology/Oncology Treatment, [place] [address] [place] [address] Nurse, Med [address] [facility] [place] [address] 09/12/2023 3:20 PM EDT Office Visit Nephrology [address] [place] [address] Eliza Boles MD [address] [place] [address] 09/18/2023 10:30 AM EDT Immunization/Injection Hematology/Oncology Treatment, [place] 200 [facility] [place] [phone] Nurse, Med [address] [facility] [place] [address] 09/26/2023 11:20 AM EDT Office Visit Family [address] [phone] Evelyn Andrews MD [address] [place] [address] [place] [address] 10/02/2023 9:20 AM EDT Office Visit Neurology [facility] 200 [place] [address] Aris Mohr MD [address] [place] [address] 10/13/2023 5:30 PM EDT [facility] [address] [place] [address] Alexis Serna MD [address] [place] [address] 10/17/2023 3:20 PM EDT Office Visit Gastroenterology, [facility] 132 [place] [address] Milind Yadav MD 132 [facility] [place] [address] 12/04/2023 3:45 PM EDT Office Visit Urology, [facility] 132 [facility] [place] [address] Christopher Almonte MD [address] [address] [place] [address] Health Maintenance Due Date Last Done Comments [...] Additional history exists CKD HGB USE SMARTSET 17977 06/12/202406/12, 03/13/2023, 03/13/2023, Additional history exists Albumin/Creatinine Ratio 08/23/2024 024, 08/23/2022, 09/20/2021 CKD PHOS USE SMARTSET 25834 09/03/202408/24, 08/21/2023, 08/14/2023, Additional history exists DTaP,Tdap,and [...] this encounter Medical Devices Implanted Type Area Linseed Oil Temperer Device Identifier Shelf Expiration Date Model / Serial / Lot Stent Axios 20mm - [id number] Implanted:Qty: 1 on 01/04/2021 by Leyda Garcia MD at OR [facility] N/A: Stomach [employer] : ENDOSCOPY 11/20/2021 [id number] / / [id number] documented as of this encounter Advance Directives Documents on File Type Date Recorded Patient Door Fitter Expl anation POLST 01/03/2022 [place] OR [facility] FOR LIFE-SUSTAINING TREATMENT Latest Code [...] Other - (no specific identity) Health Care Door Fitter (appointed verbally by patient or by statute hierarchy) Rowdy Mykel Kraus Health Care Door Fitter (appointed verbally by patient or by statute hierarchy) Care Teams Coremaking Machine Setter Relationship Specialty Start Date End Date Evelyn Andrews MD [address] [place] [address] [place] [address] PCP - General Family Medicine 05/04/18 documented as of this encounter
--- OUTSIDE RECORDS SUMMARY | 2023-12-07 18:40 | External Medical Summary | Summary of Care ---
Author Name Unknown Organization [facility] Address [address] [place] [address] Phone [phone] Care Team Providers Care Mower Operator Name Role Phone Evelyn Andrews MD Primary Care Prov ider Reason for Visit * Reason Onset Date Comments total parental nutrition 08/17/2023 Encounter Details Date Type Department Care Team (Late st Contact Info) Description 08/17/2023 Telephone Nutrition & Weight Management, [place] [address] [place] [address] Madeline Britt RN [address] [place] [address] total parental nutrition Allergies Active Allergy Reactions Criticality Noted Date Comments Amoxicillin Edema airway High 01/22/2003 Oxybutynin 03/25/2023 Mouth ulcers Sulfa Antibiotics Edema airway High 08/15/2006 documented as of this encounter (statuses as of 08/29/2023) Medications Medication Sig Dispensed Refills Start Date [...] Cough. 120 mL 0 4 Active Nystatin 761078 UNIT/GM External Cream APPLY TO AFFECTED AREA [...] FOR DAIRRHEA 60 Tablet 0 4 Active Ubgknnjtki-YTPU-Nyos eine 50-325-40 MG Oral Tablet (Fioricet)Indication s:Migraine [...] 4 Active Vitamin D (Ergocalciferol) 1.25 MG (08456 UT) Oral Capsule (Drisdol)Indications :Diarrhea due to malabsorption TAKE ONE CAPSULE BY MOUTH EVERY OTHER DAY 12 Capsule 6 3 08/26/19 24 documented as of this encounter (statuses as of 08/29/2023) Active Problems Problem Noted Date Diagnosed Date [...] as of this encounter (statuses as of 08/29/2023) Resolved Problems Problem Noted Date Diagnosed Date Resolved Date Old [place] (myocardial infarction) 03/01/2023 03/01/2023 Atherosclerosis of [place] co ronary artery without angina pectoris 02/08/2022 [...] malnutrition 09/28/2018 09/23/2021 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/2021 UPHOLSTERER APPRENTICE 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 02/06/2017 05/02/2018 UPHOLSTERER APPRENTICE 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 02/06/2017 07/09/2019 Iron deficiency anemia 06/28/201109/20 Overview: ICD-10 update of inactive term Iron deficiency anemia 06/28/201109/20 Overview: ICD-10 update of inactive term Iron deficiency anemia pat paulino to inadequate dietary iron intake 09/26/2008 3 Infected postoperative seroma 06/02/2003 09/20/2012 PANNICULITIS, UNSP SITE 05/14/200311/2022 documented as of this encounter (statuses as of 08/29/2023) Immunizations Name Administration Dates Next Due COVID-19 mRNA, LNP-s, No Pre serve, 2-Dose Series ([employer]) 02/16/2021,11/25/2020,11/01/2020 COVID-19, MRNA-LNP, 23-24, P F, 30 MCG/0.3 mL, 12 YRS AND ABOVE, IM ([employer]-ComirnatDe Novo) 04/10/2023 Covid-19, Mrna, Lnp-s, Pf, B ivalent, 30 Mcg, IM, 12 yrs and above ([employer]) 04/12/2022 Pneumococcal Conjugate Vacci ne, 20-valent ([id number]) 12/10/2021 Pneumococcal Polysaccharide PPV23 (Pneumovax) 07/21/2009 Seasonal [...] Telephone Encounter - Madeline Britt RN - 08/24/2023 4:46 PM EST Spoke to pt per Dr. Rock ngo . She is willing to be admitted to [facility] 08/31 for at least 4 days for observed TPN administration. She refused this weeks TPN delivery (because she just wants "normal life" for a bit.) I asked her about the pump that was returned without being used. Shesaid she used the wrong pump. ( She had 2 at home at that time) Pt is working and sounded optimistic how the changes in company ownership would work for her. She is willing to take the time off of work ( her brother would help her out financially so she can). Will contact team to see next steps for this admission. Will hold on further TPN delivery until then. Madeline Britt, MSN, RN, Clinical Nurse Specialist [address] [phone] * Telephone Encounter - Madeline Britt RN - 08/24/2023 11:40 AM EST Pt left a message on by voicemail 08/22 at 6:30 pm. Noted message from pharmacist that she has refused this week TPN I called pt today and LMOVM. KENNY Moss, RN, Clinical Nurse Specialist [address] [phone] * Telephone Encounter - Madeline Britt RN - 08/22/2023 1:24 PM EST Pt left a message on my voicemail. Said she had been having phone issues. Message from pharmacist to be discussed with pt when I reach her. Sent: 08/21/2023 4:37 PM EST To: Vic Wilkerson DO; Madeline Britt RN Subject: FW: update Dr. Wilkerson, We received the TPN CADD pump that was sent to [facility] on 06/28/23. It was not accessed by her or anyone until it was send back to us on 08/18/23. This pump would have been the only pump provided for home use for the 2 week period of 07/05/23 through 07/19/23. * Telephone Encounter - Madeline Britt RN - 08/21/2023 7:46 AM EST Called Patricia again and LMOVM. Madeline Britt, MSN, RN, Clinical Nurse Specialist [address] [phone] * Telephone Encounter - Madeline Britt RN - 08/17/2023 1:04 PM EST Phone call to pt to discuss possible admission to [facility] for TPN administration. LMOVM. Madeline Britt, MSN, RN, Clinical Nurse Specialist [address] [address] documented in this encounter Plan of Treatment Upcoming Encounters Date Type Department Care Team (Late st Contact Info) Description 09/01/2023 5:30 PM EST Telemedicine Psychiatry, [place] [address] [place] [address] Alexis Serna MD [address] [place] [address] 09/02/2023 2:30 PM EST Imaging Radiology [address] [facility] [address] 09/02/2023 3:15 PM EST Imaging Radiology [address] 132 [facility] [place] [address] 09/12/2023 3:20 PM EDT Office Visit Nephrology [address] [place] [address] Eliza Boles MD [address] [place] [address] [place] [address] 09/26/2023 11:20 AM EDT Office Visit Family Medicine [address] [place] [phone] Evelyn Andrews MD [address] [place] [address] [place] [address] 10/02/2023 9:20 AM EDT Office Visit Neurology [facility] 200 [facility] [place] [address] Aris Mohr MD 200 [facility] [place] [address] 10/17/2023 3:20 PM EDT Office Visit Gastroenterology, [facility] 132 [place] [address] Milind Yadav MD 132 [place] [address] 12/04/2023 3:45 PM EDT Office Visit Urology, [facility] 132 [place] [address] Christopher Almonte MD [address] [facility] 270 [place] [address] Health Maintenance Due Date Last Done Comments HPV/Co-Test 1993 Cologuard 2008 Fecal Occult Blood Test 2008 Sigmoidoscopy 2008 Mammogram 08/18/2011 08/18/2010, 08/11/2009 Cervical Cancer Screening 09/27/2014 Pap Smear 09/27/2014 09/28/2011, 11/2010, 07/07/2010, Additional history exists Depression, Most Recent Score >= 10 (will fire each visit until score < 10) 05/23/2023 05/22/2023 Colonoscopy 12/11/2023 12/10/2013, 11/24, 01/15/2007 Colorectal Cancer Screening 12/11/2023 GFR 02/19/2024 08/21/2023, 07/27, 08/14/2023, Additional history exists CKD HGB USE SMARTSET 04566 06/12/202406/12, 03/13/2023, 03/13/2023, Additional history exists CKD PHOS USE SMARTSET 17706 08/21/202407/28, 08/14/2023, 08/14/2023, Additional history exists Albumin/Creatinine Ratio 08/23/2024 024, 08/23/2022, 09/20/2021 DTaP,Tdap,and Td Vaccines (2 - Td or [...] this encounter Medical Devices Implanted Type Area Assistant Fitness Manager Device Identifier Shelf Expiration Date Model / Serial / Lot Stent Axios 20mm - [id number] Implanted:Qty: 1 on 01/04/2021 by Leyda Garcia MD at OR [facility] N/A: Stomach [employer] : ENDOSCOPY 11/20/2021 [id number] / / [id number] documented as of this encounter Advance Directives Documents on File Type Date Recorded Patient Upholstery Repairer Expl anation POLST 01/03/2022 [place] OR [email or web address] FOR LIFE-SUSTAINING TREATMENT Latest Code Status on [...] Other - (no specific identity) Health Care Upholstery Repairer (appointed verbally by patient or by statute hierarchy) Rowdy Kraus Health Care Upholstery Repairer (appointed verbally by patient or by statute hierarchy) Care Teams Mower Operator Relationship Specialty Start Date End Date Evelyn Andrews MD [address] [place] [address] [place] [address] PCP - General Family Medicine 05/04/18 documented as of this encounter
--- OUTSIDE RECORDS SUMMARY | 2023-12-07 18:40 | External Medical Summary ---
Author Name Unknown Address Unknown Organization K09[facility] [place] [address] Laboratory Report Ordering Provider Test Date Status TONY RAMIREZ 09/04/2023 10:38:22 Final Observation Date Value Abnormality Reference (Units ) Status Magnesium 09/04/2023 10:38:22 1.7 1.5-2.6 (m g/dL) Final Performing Location [facility] [place] [address]
--- OUTSIDE RECORDS SUMMARY | 2023-12-07 18:40 | External Medical Summary ---
Author Name Unknown Address Unknown Organization K01:LABORATORY [facility] - [address] [facility] [place] [address] Laboratory Report Ordering Provider Test Date Status ASHLEYTONY 09/04/2023 10:38:22 Final Observation Date Value Abnormality Reference (Units ) Status Calcium.ionized [Moles/volume] in Serum or Plasma by Ion-selective membrane electrode (ISE) 09/04/2023 10:38:22 1.35 Above high normal 1.13-1.32 (mmol/L) Final This test was developed and its performance characteristics dtermined by [employer]. It has not been cleared or approved by the US Food and Drug Administration Performing Location LABORATORY [facility] - [address] [place] [address]
--- OUTSIDE RECORDS SUMMARY | 2023-12-07 18:40 | External Medical Summary | Summary of Care ---
Author Name Unknown Organization [facility] Address [address] [place] [address] Phone [phone] Care Team Providers Care Packing Room Supervisor Name Role Phone Evelyn Andrews MD Primary Care Prov ider Reason for Visit * Reason Comments Medication Management Encounter Details Date Type Department Care Team (Late st Contact Info) Description 09/01/2023 5:30 PM EST [facility] Psychiatry, [place] [address] [place] [address] Alexis Serna MD [address] [place] [address] MDD (major depressive disorder), recurrent severe, without psychosis (HCC)* Allergies Active Allergy Reactions Criticality Noted Date Comments Amoxicillin Edema airway High 01/22/2003 Oxybutynin 03/25/2023 Mouth ulcers Sulfa Antibiotics Edema airway High 08/15/2006 documented as of this encounter (statuses as of 09/01/2023) Medications Medication Sig Dispensed Refills Start Date [...] Cough. 120 mL 0 4 Active Nystatin 809720 UNIT/GM External Cream APPLY TO AFFECTED AREA [...] FOR DAIRRHEA 60 Tablet 0 4 Active Nvidpvljke-OSMP-Cmxu eine 50-325-40 MG Oral Tablet (Fioricet)Indication s:Migraine [...] as of this encounter (statuses as of 09/01/2023) Active Problems Problem Noted Date Diagnosed Date [...] as of this encounter (statuses as of 09/01/2023) Resolved Problems Problem Noted Date Diagnosed Date Resolved Date Old CO (myocardial infarction) 03/01/2023 03/01/2023 Atherosclerosis of [place] co ronary artery without angina pectoris 02/08/2022 [...] malnutrition 09/28/2018 09/23/2021 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/2021 FRAMING AND HANGING 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 02/06/2017 05/02/2018 FRAMING AND HANGING 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 02/06/2017 07/09/2019 Iron deficiency anemia 06/28/201109/20 Overview: ICD-10 update of inactive term Iron deficiency anemia 06/28/201109/20 Overview: ICD-10 update of inactive term Iron deficiency anemia pat paulino to inadequate dietary iron intake 09/26/2008 3 Infected postoperative seroma 06/02/2003 09/20/2012 PANNICULITIS, UNSP SITE 05/14/2003 09/0 11/2022 documented as of this encounter (statuses as of 09/01/2023) Immunizations Name Administration Dates Next Due COVID-19 mRNA, LNP-s, No Pre serve, 2-Dose Series ([employer]) 02/16/2021,11/25/2020,11/01/2020 COVID-19, MRNA-LNP, 23-24, P F, 30 MCG/0.3 mL, 12 YRS AND ABOVE, IM (drumbi-Comirnaty) 04/10/2023 Covid-19, Mrna, Lnp-s, Pf, B ivalent, 30 Mcg, IM, 12 yrs and above (Pfizer) 04/12/2022 Pneumococcal Conjugate Vacci ne, 20-valent ([id number]) 12/10/2021 Pneumococcal Polysaccharide PPV23 (Pneumovax) 07/21/2009 Seasonal [...] No 12/08/2022 documented as of this encounter Patient Instructions * Patient Instructions* Alexis Serna MD - 09/01/2023 7:21 PM EST Continue Mirtazapine 45mg at bedtime - for mood, sleep, and appetite Continue Alprazolam 0.25mg as needed for anxiety Continue Duloxetine 120mg a day Continue ODT olanzapine 5 mg a night for mood/sleep/appetite Continue individual psychotherapy documented in this encounter Progress Notes * Alexis Serna MD - 09/01/2023 5:39 PM EST OUTPATIENT PSYCHIATRY FOLLOW UP APPOINTMENT DIVISION OF PSYCHIATRY [facility] [place] [address] Name: Chandrika Hogue Date Patient was Seen: 09/01/2023 Patient location: Car. PT initially connected to video appointment but due to technical problems and a poor connection the appointment was converted to telephone only. After connecting to the Can'tWait telephone, the patient was identified by name and date of . Pt was offered the opportunityto reschedule or proceed with telephone only appointment and they opted to proceed under new format, despite any limitations. PSYCHOTHERAPY & MEDICATION MANAGEMENT RETURN VISIT NOTE INTERVAL HISTORY: Chandrika Hogue is a 56 year old female seen today for f/u appointment. Reports weight most recently 78 lb Pt reports she has been taking TPN inconsistently. 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 Nutrition has expressed concerns that she isn't compliant with her TPN, as it was noted that the last TPN machine was unused over a period of a few weeks. Pt counters that she has two pumps andsent back the wrong one. Pt is adamant that she has been using her TPN regularly. Pt threatened to discontinue TPN entirely unless she is allowed to do it every other day as she feels that the TPN isseverely decreasing her quality of life. Inpt admission has been recommended but pt doesn't see thepoint. Is "tired" of her situation, needing a port and TPN, "no life". Pt aware that consequences of terminating treatment may be fatal. Pt is accepting of this. Laments her poor state of health, hasrashes, frequent falls, weakness, fatigue and pain. Has CT scan planned for tomorrow and labs scheduled for next week. She will discuss further treatment options including inpatient stay next week. Sleeping well, falling asleep at 6 pm and waking the next day the. 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 Denies having any active suicidal ideation. But states "if something happens then I'm at peace withit", strongly denies having any desire to kill herself. Feels she has a life to live but "I can't live it". Denies experiencing any current or recent AVH, paranoia, and no other delusions endorsed. No signs or symptoms suggesting the presence of guille or psychosis present on exam today. No observed or reported side effects to current medications. No increased appetite. Chandrika Hogue denies any change in medical history or medications since last visit. Past Medical History: Diagnosis Date CAD (coronary artery disease) Chronic diarrhea FRAMING AND HANGING 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 (HCC) 02/06/2017 Depressive disorder, not elsewhere [...] colpo Tobacco use disorder Vitamin D deficiency ALLERGIES: Amoxicillin, Sulfa antibiotics, and Oxybutynin CURRENT MEDICATIONS: Current Outpatient Medications Medication Sig Dispense Refill [...] needed for Cough. 120 mL 0 Nystatin 289993 UNIT/GM External Cream APPLY TO AFFECTED AREA [...] DAILY ASNEEDED FOR DAIRRHEA 60 Tablet 0 Owngnoasnu-TFCE-Fgfxnabg 50-325-40 MG Oral Tablet (Fioricet) TAKE ONE [...] needed for Cough. 120 mL 0 Nystatin 664019 UNIT/GM External Cream APPLY TO AFFECTED AREA [...] DAILY ASNEEDED FOR DAIRRHEA 60 Tablet 0 Hotakbzxrh-EJRR-Burtilis 50-325-40 MG Oral Tablet (Fioricet) TAKE ONE [...] No current facility-administered medications for this visit. Medication Comments documented by Cary Sheppard RN on 08/20/2019 at 1400. 2-25-20 Gets botox injections to forehead every 3 mo There were no vitals filed for this visit. Wt Readings from Last 3 Encounters: 08/15/23 35.4 kg (78 lb) 06/20/23 34.5 kg (76 lb) 06/14/23 33.1 kg (73 lb) There is no height or weight on file to calculate BMI. RECENT LABS/IMAGING: Recent Results (from the past 2016 hour(s)) COMPREHENSIVE METABOLIC PANEL Collection Time: 06/12/23 10:50 AM Result Value Ref Range BUN 28 (H) 6 - 20 mg/dL Creatinine 1.2 (H) 0.5 - 1.0 mg/dL Estimated Glomerular Filtration Rate 52 (L) >=60 mL/min Sodium 143 135 - 146 mmol/L Potassium 3.2 (L) 3.5 - 5.1 mmol/L Chloride 110 (H) 98 - 107 mmol/L CO2 18 (L) 22 - 32 mmol/L Anion Gap 15 7 - 15 mmol/L Glucose 124 (H) 70 - 120 mg/dL Albumin 3.0 (L) 3.8 - 5.0 g/dL AST 33 10 - 35 U/L Alkaline Phosphatase 74 35 - 130 U/L Bilirubin, Total 0.2 <=1.2 mg/dL Calcium 8.2 (L) 8.4 - 10.2 mg/dL Protein 5.1 (L) 6.0 - 8.3 g/dL ALT 27 10 - 35 U/L MAGNESIUM Collection Time: 06/12/23 10:50 AM Result Value Ref Range Magnesium 1.5 1.5 - 2.6 mg/dL PHOSPHORUS Collection Time: 06/12/23 10:50 AM Result Value Ref Range Phosphorus 2.6 2.5 - 4.8 mg/dL CALCIUM, IONIZED Collection Time: 06/12/23 10:50 AM Result Value Ref Range Calcium, Ionized 1.25 1.13 - 1.32 mmol/L IRON SCREEN, INCLUDING TIBC Collection Time: 06/12/23 11:36 AM Result Value Ref Range Iron 66 33 - 151 ug/dL Iron Binding Capacity 194 (L) 250 - 425 ug/dL Transferrin Saturation Percent 34 15 - 55 % FERRITIN Collection Time: 06/12/23 11:36 AM Result Value Ref Range Ferritin 45 13 - 150 ng/mL CBC Collection Time: 06/12/23 11:36 AM Result Value Ref Range WBC 10.00 4.00 - 10.80 K/uL RBC 3.08 3.85 - 5.15 M/uL HGB 9.8 (L) 12.0 - 15.3 g/dL HCT 31.7 (L) 36.0 - 45.2 % MCV 102.9 81.5 - 97.5 fL MCH 31.8 27.0 - 34.0 pg MCHC 30.9 32.0 - 36.0 g/dL RDW 15.0 11.5 - 15.5 % PLT 277 140 - 400 K/uL MPV 12.1 6.6 - 11.1 fL CALCIUM, IONIZED Collection Time: 06/20/23 2:50 PM Result Value Ref Range Calcium, Ionized 1.23 1.13 - 1.32 mmol/L COMPREHENSIVE METABOLIC PANEL Collection Time: 06/20/23 2:51 PM Result Value Ref Range BUN 38 (H) 6 - 20 mg/dL Creatinine 1.8 (H) 0.5 - 1.0 mg/dL Estimated Glomerular Filtration Rate 31 (L) >=60 mL/min Sodium 142 135 - 146 mmol/L Potassium 4.4 3.5 - 5.1 mmol/L Chloride 112 (H) 98 - 107 mmol/L CO2 15 (L) 22 - 32 mmol/L Anion Gap 15 7 - 15 mmol/L Glucose 127 (H) 70 - 120 mg/dL Albumin 3.3 (L) 3.8 - 5.0 g/dL AST 21 10 - 35 U/L Alkaline Phosphatase 85 35 - 130 U/L Bilirubin, Total 0.3 <=1.2 mg/dL Calcium 8.1 (L) 8.4 - 10.2 mg/dL Protein 5.3 (L) 6.0 - 8.3 g/dL ALT 32 10 - 35 U/L MAGNESIUM Collection Time: 06/20/23 2:51 PM Result Value Ref Range Magnesium 1.5 1.5 - 2.6 mg/dL PHOSPHORUS Collection Time: 06/20/23 2:51 PM Result Value Ref Range Phosphorus 4.7 2.5 - 4.8 mg/dL COMPREHENSIVE METABOLIC PANEL Collection Time: 07/24/23 12:02 PM Result Value Ref Range BUN 34 (H) 6 - 20 mg/dL Creatinine 1.6 (H) 0.5 - 1.0 mg/dL Estimated Glomerular Filtration Rate 38 (L) >=60 mL/min Sodium 143 135 - 146 mmol/L Potassium 3.6 3.5 - 5.1 mmol/L Chloride 111 (H) 98 - 107 mmol/L CO2 21 (L) 22 - 32 mmol/L Anion Gap 11 7 - 15 mmol/L Glucose 106 70 - 120 mg/dL Albumin 2.9 (L) 3.8 - 5.0 g/dL AST 27 10 - 35 U/L Alkaline Phosphatase 108 35 - 130 U/L Bilirubin, Total 0.2 <=1.2 mg/dL Calcium 8.0 (L) 8.4 - 10.2 mg/dL Protein 5.3 (L) 6.0 - 8.3 g/dL ALT 19 10 - 35 U/L MAGNESIUM Collection Time: 07/24/23 12:02 PM Result Value Ref Range Magnesium 1.5 1.5 - 2.6 mg/dL PHOSPHORUS Collection Time: 07/24/23 12:02 PM Result Value Ref Range Phosphorus 2.8 2.5 - 4.8 mg/dL CALCIUM, IONIZED Collection Time: 07/24/23 12:02 PM Result Value Ref Range Calcium, Ionized 1.16 1.13 - 1.32 mmol/L COMPREHENSIVE METABOLIC PANEL Collection Time: 07/31/23 11:43 AM Result Value Ref Range BUN 28 (H) 6 - 20 mg/dL Creatinine 1.2 (H) 0.5 - 1.0 mg/dL Estimated Glomerular Filtration Rate 51 (L) >=60 mL/min Sodium 142 135 - 146 mmol/L Potassium 3.8 3.5 - 5.1 mmol/L Chloride 114 (H) 98 - 107 mmol/L CO2 18 (L) 22 - 32 mmol/L Anion Gap 10 7 - 15 mmol/L Glucose 101 70 - 120 mg/dL Albumin 2.8 (L) 3.8 - 5.0 g/dL AST 34 10 - 35 U/L Alkaline Phosphatase 107 35 - 130 U/L Bilirubin, Total 0.3 <=1.2 mg/dL Calcium 7.8 (L) 8.4 - 10.2 mg/dL Protein 4.9 (L) 6.0 - 8.3 g/dL ALT 25 10 - 35 U/L MAGNESIUM Collection Time: 07/31/23 11:43 AM Result Value Ref Range Magnesium 1.6 1.5 - 2.6 mg/dL PHOSPHORUS Collection Time: 07/31/23 11:43 AM Result Value Ref Range Phosphorus 2.4 (L) 2.5 - 4.8 mg/dL CALCIUM, IONIZED Collection Time: 07/31/23 11:43 AM Result Value Ref Range Calcium, Ionized 1.21 1.13 - 1.32 mmol/L COMPREHENSIVE METABOLIC PANEL Collection Time: 08/14/23 11:28 AM Result Value Ref Range BUN 33 (H) 6 - 20 mg/dL Creatinine 1.2 (H) 0.5 - 1.0 mg/dL Estimated Glomerular Filtration Rate 54 (L) >=60 mL/min Sodium 137 135 - 146 mmol/L Potassium 5.0 3.5 - 5.1 mmol/L Chloride 109 (H) 98 - 107 mmol/L CO2 19 (L) 22 - 32 mmol/L Anion Gap 9 7 - 15 mmol/L Glucose 87 70 - 120 mg/dL Albumin 3.1 (L) 3.8 - 5.0 g/dL AST 26 10 - 35 U/L Alkaline Phosphatase 89 35 - 130 U/L Bilirubin, Total 0.3 <=1.2 mg/dL Calcium 8.4 8.4 - 10.2 mg/dL Protein 5.3 (L) 6.0 - 8.3 g/dL ALT 24 10 - 35 U/L MAGNESIUM Collection Time: 08/14/23 11:28 AM Result Value Ref Range Magnesium 1.7 1.5 - 2.6 mg/dL PHOSPHORUS Collection Time: 08/14/23 11:28 AM Result Value Ref Range Phosphorus 4.1 2.5 - 4.8 mg/dL CALCIUM, IONIZED Collection Time: 08/14/23 11:28 AM Result Value Ref Range Calcium, Ionized 1.29 1.13 - 1.32 mmol/L RENAL FUNCTION PANEL Collection Time: 08/14/23 11:29 AM Result Value Ref Range BUN 33 (H) 6 - 20 mg/dL Creatinine 1.2 (H) 0.5 - 1.0 mg/dL Estimated Glomerular Filtration Rate 54 (L) >=60 mL/min Sodium 137 135 - 146 mmol/L Potassium 5.0 3.5 - 5.1 mmol/L Chloride 109 (H) 98 - 107 mmol/L CO2 18 (L) 22 - 32 mmol/L Anion Gap 10 7 - 15 mmol/L Glucose 87 70 - 120 mg/dL Calcium 8.3 (L) 8.4 - 10.2 mg/dL Albumin 3.0 (L) 3.8 - 5.0 g/dL Phosphorus 4.0 2.5 - 4.8 mg/dL COMPREHENSIVE METABOLIC PANEL Collection Time: 08/21/23 10:56 AM Result Value Ref Range BUN 34 (H) 6 - 20 mg/dL Creatinine 1.2 (H) 0.5 - 1.0 mg/dL Estimated Glomerular Filtration Rate 52 (L) >=60 mL/min Sodium 140 135 - 146 mmol/L Potassium 4.5 3.5 - 5.1 mmol/L Chloride 113 (H) 98 - 107 mmol/L CO2 18 (L) 22 - 32 mmol/L Anion Gap 9 7 - 15 mmol/L Glucose 80 70 - 120 mg/dL Albumin 3.1 (L) 3.8 - 5.0 g/dL AST 23 10 - 35 U/L Alkaline Phosphatase 93 35 - 130 U/L Bilirubin, Total 0.2 <=1.2 mg/dL Calcium 8.2 (L) 8.4 - 10.2 mg/dL Protein 5.5 (L) 6.0 - 8.3 g/dL ALT 21 10 - 35 U/L MAGNESIUM Collection Time: 08/21/23 10:56 AM Result Value Ref Range Magnesium 1.8 1.5 - 2.6 mg/dL PHOSPHORUS Collection Time: 08/21/23 10:56 AM Result Value Ref Range Phosphorus 4.1 2.5 - 4.8 mg/dL CALCIUM, IONIZED Collection Time: 08/21/23 10:56 AM Result Value Ref Range Calcium, Ionized 1.25 1.13 - 1.32 mmol/L COPPER, SERUM OR PLASMA Collection Time: 08/21/23 10:56 AM Result Value Ref Range Copper 84 70 - 175 mcg/dL ALBUMIN / CREATININE RATIO, URINE Collection Time: 08/23/23 2:29 PM Result Value Ref Range Albumin, Random Urine <1.20 mg/dL Creatinine, Random Urine 47 mg/dL Albumin / Creatinine Ratio, Urine <26 <30 mg/g Creat MEDICAL REVIEW OF SYSTEMS: No CP or SOB. All other systems reviewed and are negative or non-contributory. MENTAL STATUS EVALUATION: MENTAL STATUS EVALUATION: Appearance: gaunt appearing and wearing alcides clothes indoors Muscle strength and tone: Unable to assess via tele-medicine encounter Gait: Not observed via tele-medicine encounter Motor: No significant psychomotor agitation or retardation, no hyperactivity noted. No evidence of tics, tardive dyskinesia or abnormal muscle movements. Behavior: calm, cooperative, and appropriate Eye contact: good Speech: normal in rate, rhythm, tone, and volume Mood: "Dami" Affect: type - euthymic; range - constricted Thought Process: logical, linear, and goal directed Thought Content: Endorsing feelings of hopelessness and occasional passive SI without any active suicidal intent or plan Level of Consciousness and orientation: alert, oriented to time, place, person Attention: appropriate for conversation Recent and remote memory as evidenced by recall of recent circumstances and remote life events: intact Fund of knowledge as evidenced by vocabulary and current/historical events: intact Insight: good, based on recognition and understanding of mental illness and need for treatment Judgement: good based on understanding of life event [place]-SUICIDE SEVERITY RATING SCALE Frequent Screener [place] Suicide Severity Rating Scale Results 09/01/2023 19:21 [place] SUICIDE SEVERITY RATING SCALE (C-SSRS) Have you wished you were or wished you could go to sleep and not wake up? (In the Past Month or Since Last Visit) Yes Have you had any actual thoughts of killing yourself? (In the Past Month or Since Last Visit) No Have you been thinking about how you might do this? (In the Past Month or Since Last Visit) No Have you had thoughts and had some intention of acting on them? (In the Past Month or Since Last Visit) No Have you started to work out or worked out the details of how to kill yourself? Do you intend to carry out this plan? (In the Past Month or Since Last Visit) No Have you ever done anything, started to do anything, or prepared to do anything to end your life? (Lifetime) No Was this within the past 3 months? No Level of Risk Low RISK ASSESSMENT Risk factors: Acute Risk Factors: recent change in health status and current mood and anxiety symptoms Chronic Risk Factors: significant medical condition, , h/o suicide attempt, h/o mood/anxiety disorder and socially isloated Protective factors: support from family, current desire to engage in services, future focused thinking and has safety plan Homicidal: Denies Formulation: Based on these risk and protective factors, this patient's safety risk is assessed to be minimal atthis time. Pt is future oriented, help seeking, convincingly contracts for safety, and able to effectively participate in treatment planning including what to do in a crisis. STRATEGIES: Supportive listening Cognitive behavioral therapy DIAGNOSIS: ICD-10-CM 1. MDD (major depressive disorder), recurrent severe, without psychosis (HCC) F33.2 Assessment: Patient's mood continues to be depressed secondary to chronic health issues. Patient reports ongoing hopelessness, questions the utility of ongoing TPN which she does not feel is helpful.Continues to experience passive suicidal ideation but without any specific plan or intent to act onthese thoughts. Patient will consider inpatient stay as there are questions about her TPN compliance. No medication changes recommended today. Plan: Patient Instructions Continue Mirtazapine 45mg at bedtime - for mood, sleep, and appetite Continue Alprazolam 0.25mg as needed for anxiety Continue Duloxetine 120mg a day Continue ODT olanzapine 5 mg a night for mood/sleep/appetite Continue individual psychotherapy RTC: in 6 week(s) Treatment options and alternatives reviewed with patient who agrees with the above plan. Information about current medications was provided to the patient including reasons why medications are being used. Patient understood the risks, benefits, side-effects, and potential complications associated with changes in medications being proposed (both medications being started and medications being discontinued or having dose changed). Patient is making an informed medical decision to follow the recommendations outlined in this note. Directed pt to call with any questions or concerns, worsening symptoms and/or ask for earlier appointment. Greater than 50% of the time was spent counseling or coordinating the care of the patient Risk assessment was performed. This is a patient being treated for chronic mental health conditionsand/or substance use disorder as characterized above; at the time of this visit, there was no indication that this patient was either a risk to self, others, or gravely disabled by symptoms of a mental illness or substance use disorder. PT repeatedly and convincingly denies experiencing any active or passive SI on exam today, is able to effectively participate in treatment and crisis planning. Atthe time of this evaluation, there were enough protective factors in place and it was deemed safe to continue with treatment on a outpatient basis with return to clinic in the timeframe described above. The patient was instructed to schedule an earlier appointment or reach out to other mental health resources available if they should experience new or worsening symptoms placing them or others at risk of harm. Time Spent on Visit: 30 minutes - including preparing to see the patient, reviewing history, performing evaluation, counseling/educating patient, ordering medications/tests, documenting clinical information. Please note >17 minutes of counseling time over and above medication management was spent with patient discussing self care and providing supportive therapy Treatment plan reviewed with the patient. Patient voices understanding and concurs with plan. Alexis Serna MD [facility] [phone] 09/01/2023 7:24 PM documented in this encounter Plan of Treatment Upcoming Encounters Date Type Department Care Team (Late st Contact Info) Description 09/02/2023 2:30 PM EST [address] [place] [address] 09/02/2023 3:15 PM EST Imaging Radiology [address] [place] [address] 09/04/2023 10:30 AM EDT Nurse Only Hematology/Oncology Treatment, [place] [address] [place] [phone] Nurse, Med [address] [place] [address] 09/12/2023 3:20 PM EDT Office Visit Nephrology [address] [place] [address] Eliza Boles MD [address] [place] [address] 09/26/2023 11:20 AM EDT Office Visit Family Medicine [address] [place], [place] [phone] Evelyn Andrews MD [address] [place] [address] [place] [address] 10/02/2023 9:20 AM EDT Office Visit Neurology [facility] [address] [facility] [place] [address] Aris Mohr MD [address] [facility] [place] [address] 10/13/2023 5:30 PM EDT Telemedicine Psychiatry, [place] [address] [place] [address] Alexis Serna MD [address] [place] [address] 10/17/2023 3:20 PM EDT Office Visit Gastroenterology, [facility] [address] [facility] [place] [address] Milind Yadav MD [address] [facility] [place] [address] 12/04/2023 3:45 PM EDT Office Visit Urology, [facility] [address] [facility] [place] [address] Christopher Almonte MD [address] [facility] [address] [place] [address] Health Maintenance Due Date Last Done Comments [...] Additional history exists CKD HGB USE SMARTSET 97007 06/12/202406/12, 03/13/2023, 03/13/2023, Additional history exists CKD PHOS USE SMARTSET 16982 08/21/202407/28, 08/14/2023, 08/14/2023, Additional history exists Albumin/Creatinine [...] this encounter Medical Devices Implanted Type Area Piston Maker Device Identifier Shelf Expiration Date Model / Serial / Lot Stent [employer]xios 20mm - [id number] Implanted:Qty: 1 on 01/04/2021 by Leyda Garcia MD at OR [facility] N/A: Stomach [employer] : ENDOSCOPY 11/20/2021 [id number] / / [id number] documented as of this encounter Visit Diagnoses Diagnosis MDD (major depressive disorder), recurrent severe, without psychosis (HCC)- Primary Major depressive disorder, recurrent episode, severe, without mention of psychotic behavior documented in this encounter Advance Directives Documents on File Type Date Recorded Patient Field Marketing Representative Expl anation POLST 01/03/2022 [place] [facility] FOR LIFE-SUSTAINING TREATMENT Latest Code [...] Other - (no specific identity) Health Care Field Marketing Representative (appointed verbally by patient or by statute hierarchy) Rowdy Hogue Sibling Health Care Field Marketing Representative (appointed verbally by patient or by statute hierarchy) Care Teams Packing Room Supervisor Relationship Specialty Start Date End Date Evelyn Andrews MD NPI: [id number] [place] [address] [place] [address] PCP - General Family Medicine 05/04/18 documented as of this encounter
--- OUTSIDE RECORDS SUMMARY | 2023-12-07 18:40 | External Medical Summary | Summary of Care ---
Author Name Unknown Organization [facility] Address [address] [place] [address] Phone [phone] Care Team Providers Care Dredge Pipeman Name Role Phone Evelyn Andrews MD Primary Care Prov ider Reason for Visit * Reason Comments Procedure PICC dressing change . Encounter Details Date Type Department Care Team (Late st Contact Info) Description 09/04/2023 10:30 AM EDT Nurse Only Hematology/Oncology Treatment, [place] [address] [place] [address] Nurse, Med [address] [place] [address] Procedure (PICC dressing change. ) Allergies Active Allergy Reactions Criticality Noted Date Comments Amoxicillin Edema airway High 01/22/2003 Oxybutynin 03/25/2023 Mouth ulcers Sulfa Antibiotics Edema airway High 08/15/2006 documented as of this encounter (statuses as of 09/04/2023) Medications Medication Sig Dispensed Refills Start Date [...] Cough. 120 mL 0 4 Active Nystatin 882792 UNIT/GM External Cream APPLY TO AFFECTED AREA [...] FOR DAIRRHEA 60 Tablet 0 4 Active Vnoytoecpn-ZSRM-Conc eine 50-325-40 MG Oral Tablet (Fioricet)Indication s:Migraine [...] as of this encounter (statuses as of 09/04/2023) Active Problems Problem Noted Date Diagnosed Date [...] as of this encounter (statuses as of 09/04/2023) Resolved Problems Problem Noted Date Diagnosed Date Resolved Date Old OR (myocardial infarction) 03/01/2023 03/01/2023 Atherosclerosis of [place] co ronary artery without angina pectoris 02/08/2022 [...] malnutrition 09/28/2018 09/23/2021 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/2021 IT SOLUTIONS ARCHITECT 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 02/06/2017 05/02/2018 IT SOLUTIONS ARCHITECT 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 02/06/2017 07/09/2019 Iron deficiency anemia 06/28/201109/20 Overview: ICD-10 update of inactive term Iron deficiency anemia 06/28/201109/20 Overview: ICD-10 update of inactive term Iron deficiency anemia pat paulino to inadequate dietary iron intake 09/26/2008 3 Infected postoperative seroma 06/02/2003 09/20/2012 PANNICULITIS, UNSP SITE 05/14/2003 09/0 11/2022 documented as of this encounter (statuses as of 09/04/2023) Immunizations Name Administration Dates Next Due COVID-19 mRNA, LNP-s, No Pre serve, 2-Dose Series (Sharetivity) 02/16/2021,11/25/2020,11/01/2020 COVID-19, MRNA-LNP, 23-24, P F, 30 MCG/0.3 mL, 12 YRS AND ABOVE, IM (Directworks-ComirnatPlickers) 04/10/2023 Covid-19, Mrna, Lnp-s, Pf, B ivalent, 30 Mcg, IM, 12 yrs and above (Pfizer) 04/12/2022 Pneumococcal Conjugate Vacci ne, 20-valent ([id number]) 12/10/2021 Pneumococcal Polysaccharide PPV23 (Pneumovax) 07/21/2009 Seasonal [...] 09/11/2023 10:30 AM EDT Immunization/Injection Hematology/Oncology Treatment, [place] [address] [place] [phone] Nurse, Med 200 [facility] [address] 09/12/2023 3:20 PM EDT Office Visit Nephrology [address] [place] [address] Eliza Boles MD 200 [facility] [place] [address] 09/18/2023 10:30 AM EDT Immunization/Injection Hematology/Oncology Treatment, [place] 200 [place] [phone] Nurse, Med 200 [facility] [place] [address] 09/26/2023 11:20 AM EDT Office Visit Family Medicine [address] [phone] Evelyn Andrews MD [address] [place] [address] [place] [address] 10/02/2023 9:20 AM EDT Office Visit Neurology [facility] 200 [facility] [place] [address] Aris Mohr MD 200 [facility] [place] [address] 10/13/2023 5:30 PM EDT Telemedicine Psychiatry, [place] [address] [place] [address] Alexis Serna MD [address] [place] [phone] 10/17/2023 3:20 PM EDT Office Visit Gastroenterology, [facility] [address] [place] [address] Milind Yadav MD [address] [place] [address] 12/04/2023 3:45 PM EDT Office Visit Urology, [facility] [address] [place] [address] Christopher Almonte MD 27 [facility] [address] [place] [address] Pending Results Name Type Priority Associated Diagnoses Date /Time CALCIUM, IONIZED Lab Routine Severe protein-energy malnutrition (HCC) 09/04/2023 10:38 AM EDT Health Maintenance Due Date Last Done [...] Additional history exists CKD HGB USE SMARTSET 95006 06/12/202406/12, 03/13/2023, 03/13/2023, Additional history exists Albumin/Creatinine Ratio 08/23/2024 024, 08/23/2022, 09/20/2021 CKD PHOS USE SMARTSET 87432 09/03/202408/24, 08/21/2023, 08/14/2023, Additional history exists DTaP,Tdap,and [...] this encounter Medical Devices Implanted Type Area Metal Dealer Device Identifier Shelf Expiration Date Model / Serial / Lot Stent Axios 20mm - [id number] Implanted:Qty: 1 on 01/04/2021 by Leyda Garcia MD at OR [facility] N/A: Stomach [employer] : ENDOSCOPY 11/20/2021 [id number] / / [id number] documented as of this encounter Procedures Procedure Name Priority Date/Time Associated Diagnosis Comments COMPREHENSIVE METABOLIC PANEL Routine 09/04/2023 10:38 AM EDT Severe protein-energy malnutrition (HCC) PHOSPHORUS Routine 09/04/2023 10:38 AM EDT Severe protein-energy malnutrition (HCC) MAGNESIUM Routine 09/04/2023 10:38 AM EDT Severe protein-energy malnutrition (HCC) documented in this encounter Results * PHOSPHORUS (09/04/2023 10:38 AM EDT) Phosphorus 3.6 2.5 - 4.8 mg/dL 09/04/2023 11:23 AM EDT [facility] 56-02 Blood Venous blood specimen / Unknown Central Line / Unknown 09/04/2023 10:38 AM EDT 09/04/2023 10:50 AM EDT Mayra Crook [facility] LAB BLOOD ORDERAB LES [facility] 56-[address] [place] [address] * MAGNESIUM (09/04/2023 10:38 AM EDT) Magnesium 1.7 1.5 - 2.6 mg/dL 09/04/2023 11:23 AM EDT [facility] 56 Blood Venous blood specimen / Unknown Central Line / Unknown 09/04/2023 10:38 AM EDT 09/04/2023 10:50 AM EDT Mayra Crook [facility] LAB BLOOD ORDERAB LES [address] [place] [address] * (ABNORMAL) COMPREHENSIVE METABOLIC PANEL (09/04/2023 10:38 AM EDT) BUN 23(H) 6 - 20 mg/dL 09/04/2023 11:23 AM EDT [address] Creatinine 1.0 0.5 - 1.0 mg/dL 09/04/2023 11:23 AM EDT [address] Estimated Glomerular Filtration Rate 64 >=60 mL/min 09/04/2023 11:23 AM EDT [facility] 56 Comment:eGFR is calculated b ased on the CKD-EPI 2020 equation Sodium 139 135 - 146 mmol/L 09/04/2023 11:23 AM EDT [facility] 56- Potassium 4.5 3.5 - 5.1 mmol/L 09/04/2023 11:23 AM EDT [facility] 56- Chloride 111(H) 98 - 107 mmol/L 09/04/2023 11:23 AM EDT [facility] 56- CO2 17(L) 22 - 32 mmol/L 09/04/2023 11:23 AM EDT [facility] 56- Anion Gap 11 7 - 15 mmol/L 09/04/2023 11:23 AM EDT [facility] 56- Glucose 117 70 - 120 mg/dL 09/04/2023 11:23 AM EDT [facility] 56- Albumin 3.6(L) 3.8 - 5.0 g/dL 09/04/2023 11:23 AM EDT [facility] 56- AST 21 10 - 35 U/L 09/04/2023 11:23 AM EDT [facility] 56- Alkaline Phosphatase 118 35 - 130 U/L 09/04/2023 11:23 AM EDT [facility] 56- Bilirubin, Total 0.2 <=1.2 mg/dL 09/04/2023 11:23 AM EDT [facility] 56- Calcium 8.9 8.4 - 10.2 mg/dL 09/04/2023 11:23 AM EDT [facility] 56 Protein 6.3 6.0 - 8.3 g/dL 09/04/2023 11:23 AM EDT [facility] 56 ALT 17 10 - 35 U/L 09/04/2023 11:23 AM EDT [facility] 56 Blood Venous blood specimen / Unknown Central Line / Unknown 09/04/2023 10:38 AM EDT 09/04/2023 10:50 AM EDT Mayra Crook [facility] LAB BLOOD ORDERAB LES [facility] 56- [address] [place] [address] documented in this encounter Visit Diagnoses Diagnosis [...] Flush, Starting on Mon09/04/23 at 1049, Until Mon09/05/23 at 1048, For 24 hours, Do not flush if lock, PICC, or central line not in place; IV infusing or unable to flush. Given 09/04/2023 10:40 AM EDT 500 Units sodium chloride 0.9 % flush central line 10 mL 10 mL, IV Push, PRN Other, IV Flush, Starting on Mon09/04/23 at 1049, Until Mon09/05/23 at 1048, For 24 hours, Do not flush if lock, PICC, or central line not in place; IV infusing or unable to flush. Given 09/04/2023 10:40 AM EDT 10 mL documented in this encounter Advance Directives Documents on File Type Date Recorded Patient Hop Separator Expl anation POLST 01/03/2022 [place] OR [facility] FOR LIFE-SUSTAINING TREATMENT [...] Other - (no specific identity) Health Care Hop Separator (appointed verbally by patient or by statute hierarchy) Rowdy Hogue Sibling Health Care Hop Separator (appointed verbally by patient or by statute hierarchy) Care Teams Dredge Pipeman Relationship Specialty Start Date End Date Evelyn Andrews MD [address] [place] [address] [place] [phone] PCP - General Family Medicine 05/04/18 documented as of this encounter
--- OUTSIDE RECORDS SUMMARY | 2023-12-07 18:40 | External Medical Summary ---
Author Name Unknown Address Unknown Organization K09:[facility] [place] [address] Laboratory Report Ordering Provider Test Date Status TONY RAMIREZ 09/04/2023 10:38:22 Final Observation Date Value Abnormality Reference (Units ) Status Phosphate 09/04/2023 10:38:22 3.6 2.5-4.8 (m g/dL) Final Performing Location [place] [address]
--- OUTSIDE RECORDS SUMMARY | 2023-12-07 18:40 | External Medical Summary | Summary of Care ---
Author Name Unknown Organization [facility] Address [address] [place] [address] Phone [phone] Care Team Providers Care Senior Enterprise Architect Name Role Phone Evelyn Andrews MD Primary Care Prov ider Encounter Details Date Type Department Care Team (Late st Contact Info) Description 09/08/2023 Telephone Gastroenterology, [place] [address] [place], [place] [phone] Vic Wilkerson DO [address] [place] [address] Allergies Active Allergy Reactions Criticality Noted Date [...] Cough. 120 mL 0 4 Active Nystatin 695481 UNIT/GM External Cream APPLY TO AFFECTED AREA [...] FOR DAIRRHEA 60 Tablet 0 4 Active Tuyyjppzvi-WDTB-Pclb eine 50-325-40 MG Oral Tablet (Fioricet)Indication s:Migraine [...] AL (myocardial infarction) 03/01/2023 03/01/2023 Atherosclerosis of [place] co ronary artery without angina pectoris 02/08/2022 [...] malnutrition 09/28/2018 09/23/2021 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/2021 ASTRONOMY INSTRUCTOR 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 02/06/2017 05/02/2018 ASTRONOMY INSTRUCTOR 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 02/06/2017 07/09/2019 Iron deficiency anemia 06/28/201109/20 Overview: ICD-10 update of inactive term Iron deficiency anemia 06/28/201109/20 Overview: ICD-10 update of inactive term Iron deficiency anemia pat paulino to inadequate dietary iron intake 09/26/2008 3 Infected postoperative seroma 06/02/2003 09/20/2012 PANNICULITIS, [facility] SITE 05/14/2003 09/0 11/2022 documented as of this encounter (statuses as of 09/08/2023) Immunizations Name Administration Dates Next Due COVID-19 mRNA, LNP-s, No Pre serve, 2-Dose Series (youmag) 02/16/2021,11/25/2020,11/01/2020 COVID-19, MRNA-LNP, 23-24, P F, 30 MCG/0.3 mL, 12 YRS AND ABOVE, IM ([facility]) 04/10/2023 Covid-19, Mrna, Lnp-s, Pf, B ivalent, 30 Mcg, IM, 12 yrs and above (youmag) 04/12/2022 Pneumococcal Conjugate Vacci ne, 20-valent ([id number]) 12/10/2021 Pneumococcal Polysaccharide PPV23 (Pneumovax) 07/21/2009 Seasonal [...] 09/11/2023 10:30 AM EDT Immunization/Injection Hematology/Oncology Treatment, [place] 200 [place] [phone] Nurse, Med [address] [place] [address] 09/12/2023 3:20 PM EDT Office Visit Nephrology [address] [place] [address] Eliza Boles MD [address] [place] [address] 09/18/2023 10:30 AM EDT Immunization/Injection Hematology/Oncology Treatment, [place] [address] [place] [phone] Nurse, Med 4 [address] Theresa Gallagher [place] [address] 09/26/2023 11:20 AM EDT Office Visit Family Medicine [address] [phone] Evelyn Andrews MD [address] [place] [address] [place] [address] 10/02/2023 9:20 AM EDT Office Visit Neurology [facility] 200 [facility] [place] [address] Aris Mohr MD 200 [facility] [place] [address] 10/13/2023 5:30 PM EDT Telemedicine Psychiatry, [place] [address] [place] [address] Alexis Serna MD [address] [place] [phone] 10/17/2023 3:20 PM EDT Office Visit Gastroenterology, [facility] 132 [facility] [place] [address] Milind Yadav MD 132 [place] [address] 12/04/2023 3:45 PM EDT Office Visit Urology, [facility] 132 [facility] [place] [address] Christopher Almonte MD 27 [facility] [address] [place] [address] Scheduled Orders Name Type Priority Associated Diagnoses Orde r Schedule COMPREHENSIVE METABOLIC PANEL Lab Routine Severe protein-energy malnutrition (HCC) Every Week for 26 Occurrences starting 09/08/2023 until 09/07/2024 MAGNESIUM Lab Routine Severe protein-energy malnutrition (HCC) Every Week for 26 Occurrences starting 09/08/2023 until 09/07/2024 PHOSPHORUS Lab Routine Severe protein-energy malnutrition (HCC) Every Week for 26 Occurrences starting 09/08/2023 until 09/07/2024 CALCIUM, IONIZED Lab Routine Severe protein-energy malnutrition (HCC) Every Week for 26 Occurrences starting 09/08/2023 until 09/07/2024 Health Maintenance Due Date Last Done Comments [...] Additional history exists CKD HGB USE SMARTSET 19949 06/12/202406/12, 03/13/2023, 03/13/2023, Additional history exists Albumin/Creatinine Ratio 08/23/2024 024, 08/23/2022, 09/20/2021 CKD PHOS USE SMARTSET 00547 09/03/202408/24, 08/21/2023, 08/14/2023, Additional history exists DTaP,Tdap,and [...] this encounter Medical Devices Implanted Type Area Waist Cutter Device Identifier Shelf Expiration Date Model / Serial / Lot Stent Axios 20mm - [id number] Implanted:Qty: 1 on 01/04/2021 by Leyda Garcia MD at OR [facility] N/A: Stomach [employer] : ENDOSCOPY 11/20/2021 [id number] / / [id number] documented as of this encounter Visit Diagnoses Diagnosis Severe protein-energy malnutrition (HCC)- Primary Other severe protein-calorie malnutrition documented in this encounter Advance Directives Documents on File Type Date Recorded Patient Fabrication Department Supervisor Expl anation POLST 01/03/2022 [place] OR [facility] FOR LIFE-SUSTAINING TREATMENT Latest Code Status on [...] Other - (no specific identity) Health Care Fabrication Department Supervisor (appointed verbally by patient or by statute hierarchy) Rowdy Kraus Health Care Fabrication Department Supervisor (appointed verbally by patient or by statute hierarchy) Care Teams Senior Enterprise Architect Relationship Specialty Start Date End Date Evelyn Andrews MD [address] [place] [address] [place] [address] PCP - General Family Medicine 05/04/18 documented as of this encounter
--- OUTSIDE RECORDS SUMMARY | 2023-12-07 18:40 | External Medical Summary | Summary of Care ---
Author Name Unknown Organization [facility] Address [address] [place] [address] Phone [phone] Care Team Providers Care Emergency Operator Name Role Phone Evelyn Andrews MD Primary Care Prov ider Encounter Details Date Type Department Care Team (Late st Contact Info) Description 09/08/2023 Documentation Home Infusion, [place] [address] [place] [address] [address] Allergies Active Allergy Reactions Criticality Noted Date [...] Cough. 120 mL 0 4 Active Nystatin 146656 UNIT/GM External Cream APPLY TO AFFECTED AREA [...] FOR DAIRRHEA 60 Tablet 0 4 Active Bzrfppdujk-IMYE-Fhld eine 50-325-40 MG Oral Tablet (Fioricet)Indication s:Migraine [...] [place] (myocardial infarction) 03/01/2023 03/01/2023 Atherosclerosis of [place] co ronary artery without angina pectoris 02/08/2022 [...] malnutrition 09/28/2018 09/23/2021 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/2021 AMMONIUM NITRATE NEUTRALIZER 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 02/06/2017 05/02/2018 AMMONIUM NITRATE NEUTRALIZER 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 02/06/2017 07/09/2019 Iron deficiency anemia 06/28/201109/20 [...] mRNA, LNP-s, No Pre serve, 2-Dose Series ([facility]) 02/16/2021,11/25/2020,11/01/2020 COVID-19, MRNA-LNP, 23-24, P F, 30 MCG/0.3 mL, 12 YRS AND ABOVE, IM (D[facility]Yog[facility]-ComirnatLiquidW[facility]) 04/10/2023 Covid-19, Mrna, Lnp-s, Pf, B ivalent, 30 Mcg, IM, 12 yrs and above (Pfizer) 04/12/2022 Pneumococcal Conjugate Vacci ne, 20-valent ([id number]) 12/10/2021 Pneumococcal Polysaccharide PPV23 (Pneumovax) 07/21/2009 Seasonal [...] this encounter Progress Notes * Mayra Crook, [facility] - 09/08/2023 11:12 AM EDT [facility] Adult TPN Documentation Patient Phone Numbers mobile [phone] Results for orders placed or performed during the hospital encounter of 12/08/22 BASIC METABOLIC PANEL Result Value Ref Range BUN 25 (H) 6 - 20 mg/dL Creatinine 1.1 (H) 0.5 - 1.0 mg/dL Estimated Glomerular Filtration Rate 61 >=60 mL/min Sodium 135 135 - 146 mmol/L Potassium 4.6 3.5 - 5.1 mmol/L Chloride 104 98 - 107 mmol/L CO2 22 22 - 32 mmol/L Anion Gap 9 7 - 15 mmol/L Glucose 132 (H) 70 - 120 mg/dL Calcium 8.5 8.4 - 10.2 mg/dL Results for orders [...] Results Component Value Date/Time MAGNESIUM - [facility] 1.7 09/04/2023 10:38 AM MAGNESIUM - [facility] 1.7 05/10/2019 02:25 PM MAGNESIUM URINE 24HR 107 05/22/2013 11:39 AM MAGNESIUM-OUTSIDE LAB 1.3 (L) 11/30/2020 04:26 AM Lab Results Component Value Date/Time PHOSPHORUS - [facility] 3.6 09/04/2023 10:38 AM PHOSPHORUS - [facility] 3.9 05/10/2019 02:25 PM PHOSPHORUS, 24 HOUR URINE - [facility] 0.402 05/22/2013 11:39 AM PHOSPHORUS-OUTSIDE LAB 4.3 11/30/2020 12:00 AM PHOSPHORUS-OUTSIDE LAB 4.3 11/28/2020 09:46 AM Lab Results Component Value Date/Time CALCIUM - [facility] 8.9 09/04/2023 10:38 AM CALCIUM - [facility] 8.5 07/16/2020 12:54 PM CALCIUM, 24 HOUR URINE - [facility] 0.065 05/10/2019 02:25 PM CALCIUM, IONIZED - [facility] 1.35 (H) 09/04/2023 10:38 AM CALCIUM, IONIZED - [facility] 1.33 (H) 07/21/2009 11:31 AM Patient weight (kg):35.4 kg (08/15/23 family medicine appointment) Amino acids (gm): 60 Dextrose (gm): 100 Lipids (gm): 45 Days per week (lipids): 3 Volume (ml): 1200 Cycle (hr): 12 with two hour taper down Days per week infused: 3 Sodium Chloride (mEq): 0 Sodium Phosphate (mM): 0 Sodium Acetate (mEq): 100 Potassium Chloride (mEq): 0 Potassium Phosphate (mM): 22 Potassium Acetate (mEq): 40 Calcium Gluconate (mEq): 0 Magnesium Sulfate (mEq): 8 Multiple Trace elements (ml): - Multivits (ml): 10 (3 times per week) Zinc (mg): 10 Selenium (mcg): 100 Copper Chloride (mg): 1 Manganese (mg): 0.055 Chromium (mcg): - Human Regular Insulin (Units): - Octreotide (mcg): - Famotidine (mg): - Other: - Client is a 58 yo female on TPN for severe malnutrition. Discussed with Dr. Wilkerson: Restarted TPN today with a standard adult formula with modified electrolytes to be run three times per week as patient agreed to infusing MWF. Will send new CADD pump due to volume/rate change. Sending 09/08/23 to cover TPN through 09/13/23. Next weekly labs 09/18/23: CMP, Magnesium, Phosphorus, and ionized Calcium. Next nutrition appointment: 10/17/23 Mayra Crook RPh 09/08/2023 11:12 AM documented in this encounter Plan of Treatment Upcoming Encounters Date Type Department Care Team (Late st Contact Info) Description 09/11/2023 10:30 AM EDT Immunization/Injection Hematology/Oncology Treatment, [place] 200 [facility] [place] [phone] Nurse, Med 200 [facility] [place] [address] 09/12/2023 3:20 PM EDT Office Visit Nephrology [address] [place] [address] Eliza Boles MD 200 [facility] [place] [address] 09/18/2023 10:30 AM EDT Immunization/Injection [facility]ematology/[facility], [place] [facility] [phone] Nurse, Med 200 [facility] [place] [address] 09/26/2023 11:20 AM EDT Office Visit Family Medicine [address] [phone] Evelyn Andrews MD [address] [place] [address] [place] [address] 10/02/2023 9:20 AM EDT Office Visit Neurology [facility] 200 [facility] [place] [address] Aris Mohr MD 200 [facility] [place] [address] 10/13/2023 5:30 PM EDT Telemedicine Psychiatry, [place] [address] [place] [address] Alexis Serna MD [address] [place] [address] 10/17/2023 3:20 PM EDT Office Visit Gastroenterology, [facility] 132 [facility] [place] [address] Milind Yadav MD 132 [facility] [place] [address] 12/04/2023 3:45 PM EDT Office Visit Urology, [facility] 132 [facility] [place] [address] Christopher Almonte MD [address] [place] [address] Health Maintenance Due Date Last Done Comments [...] Additional history exists CKD HGB USE SMARTSET 10162 06/12/202406/12, 03/13/2023, 03/13/2023, Additional history exists Albumin/Creatinine Ratio 08/23/2024 024, 08/23/2022, 09/20/2021 CKD PHOS USE SMARTSET 87410 09/03/202408/24, 08/21/2023, 08/14/2023, Additional history exists DTaP,Tdap,and [...] this encounter Medical Devices Implanted Type Area Forensic Psychiatrist Device Identifier Shelf Expiration Date Model / Serial / Lot Stent Axios 20mm - [id number] Implanted:Qty: 1 on 01/04/2021 by Leyda Garcia MD at OR [facility] N/A: Stomach [employer] : ENDOSCOPY 11/20/2021 [id number] / / [id number] documented as of this encounter Advance Directives Documents on File Type Date Recorded Patient Pump Tester Expl anation POLST 01/03/2022 [place] OR [facility] FOR LIFE-SUSTAINING TREATMENT Latest Code [...] Other - (no specific identity) Health Care Pump Tester (appointed verbally by patient or by statute hierarchy) Rowdy Hogue Sibling Health Care Pump Tester (appointed verbally by patient or by statute hierarchy) Care Teams Emergency Operator Relationship Specialty Start Date End Date Evelyn Andrews MD [address] [place] [address] [place] [phone] PCP - General Family Medicine 05/04/18 documented as of this encounter
--- OUTSIDE RECORDS SUMMARY | 2023-12-07 18:41 | External Medical Summary | Summary of Care ---
Author Name Unknown Organization [facility] Address [address] [place] [address] Phone [phone] Care Team Providers Care Wool Fleece Grader Name Role Phone Evelyn Andrews MD Primary Care Prov ider Reason for Visit * Reason Onset Date Comments total parental nutrition 08/03/2023 Encounter Details Date Type Department Care Team (Late st Contact Info) Description 08/03/2023 Telephone Nutrition & Weight Management, [place] [address] [place] [address] Madeline Britt RN [address] [place] [address] total parental nutrition Allergies Active Allergy Reactions Criticality Noted Date Comments Amoxicillin Edema airway High 01/22/2003 Oxybutynin 03/25/2023 Mouth ulcers Sulfa Antibiotics Edema airway High 08/15/2006 documented as of this encounter (statuses as of 08/17/2023) Medications Medication Sig Dispensed Refills Start Date [...] the morning. 30 Capsule 0 12/16/19 Active Vitamin D (Ergocalciferol) 1.25 MG (95498 UT) Oral Capsule (Drisdol)Indicatio ns:Diarrhea due to malabsorption TAKE ONE CAPSULE BY MOUTH EVERY OTHER DAY 12 Capsule 6 08/27/19 23 024 Active DULoxetine HCl 60 MG Oral Capsule [...] Sleep. 30 Tablet 3 06/14/20 23 Active Rizatriptan Benzoate 10 MG Oral Tablet (Maxalt)Indication s:Migraine variant TAKE 1 TAB BY MOUTH DAILY NEEDED FOR MIGRAINE. 10 Tablet 5 06/14/20 23 Active Furosemide 20 MG Oral Tablet (Lasix) Take 1 Tablet by mouth in the morning. 7 Tablet 0 06/27/19 24 Active Additional Information Patient not taking.Reported on 08/15/2023 guaiFENesin-Codein e 100-10 MG/5ML Oral Syrup (Robitussin AC)Indications:COV ID-19 Take 5 mL by mouth every 4 hours as needed for Cough. 120 mL 0 06/28/19 24 Active Nystatin 482187 UNIT/GM External Cream APPLY TO AFFECTED AREA TWICE A DAY 30 g 2 06/30/19 24 Active OLANZapine 5 MG Oral Tablet Disintegrating (zyPREXA zyDIS) Place 1 Tablet on tongue in the morning. 30 Tablet 5 07/04/19 24 Active Omeprazole 20 MG Oral Capsule Delayed Release (PriLOSEC) TAKE 1 CAPSULE BY MOUTH EVERY DAY IN THE MORNING 90 Capsule 4 07/26/19 24 Active Ondansetron 4 MG Oral Tablet Disintegrating (Zofran)Indication s:Intractable vomiting with nausea PLACE 1 TABLET ON TONGUE EVERY 8 HOURS NEEDED FOR NAUSEA. 90 Tablet 1 07/26/19 24 Active Lidocaine 4 % External Patch (Aspercreme) Place 1 Patch every 12 hours topically on the skin in the morning - remove old patch first. Do not start before December 16, 2022. 30 Patch 0 12/17/19 23 024 Discontinued Promethazine HCl 25 MG [...] DAILY NEEDED FOR DAIRRHEA 60 Tablet 0 07/05/19 24 024 Discontinued Bkwzgtxbme-HGBR-Bz ffeine 50-325-40 MG Oral Tablet (Fioricet)Indicati ons:Migraine variant TAKE ONE TABLET EVERY 6 HOURS NEEDED FOR PAIN 90 Tablet 1 07/14/19 24 024 Discontinued(Re fill) documented as of this encounter (statuses as of 08/17/2023) Active Problems Problem Noted Date Diagnosed Date [...] as of this encounter (statuses as of 08/17/2023) Resolved Problems Problem Noted Date Diagnosed Date Resolved Date Old [place] (myocardial infarction) 03/01/2023 03/01/2023 Atherosclerosis of [place] ronary artery without angina pectoris 02/08/2022 [...] malnutrition 09/28/2018 09/23/2021 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/2021 GOLD ASSAYER 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 02/06/2017 05/02/2018 GOLD ASSAYER 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 02/06/2017 07/09/2019 Iron deficiency anemia 06/28/201109/20 Overview: ICD-10 update of inactive term Iron deficiency anemia 06/28/201109/20 Overview: ICD-10 update of inactive term Iron deficiency anemia pat paulino to inadequate dietary iron intake 09/26/2008 3 Infected postoperative seroma 06/02/2003 09/20/2012 PANNICULITIS, [facility] SITE 05/14/200311/2022 documented as of this encounter (statuses as of 08/17/2023) Immunizations Name Administration Dates Next Due COVID-19 mRNA, LNP-s, No Pre serve, 2-Dose Series ([employer] 02/16/2021,11/25/2020,11/01/2020 COVID-19, MRNA-LNP, 23-24, P F, 30 MCG/0.3 mL, 12 YRS AND ABOVE, IM ([employer]) 04/10/2023 Covid-19, Mrna, Lnp-s, Pf, B ivalent, 30 Mcg, IM, 12 yrs and above ([employer] 04/12/2022 Pneumococcal Conjugate Vacci ne, 20-valent ([id number]) 12/10/2021 Pneumococcal Polysaccharide PPV23 (Pneumovax) 07/21/2009 Seasonal [...] Telephone Encounter - Madeline Britt RN - 08/03/2023 7:58 AM EST Spoke to pt . She reports she was taking the TPN up to this week. ( Labs on Monday - she infused night before) She did refuse this week TPN - as she wants a week to do things like celebrate her birthday and super bowl. She does have the box to send the TPN pump back - she has been busy. Issues with her employer . Pt reports she is about 72 lbs, she is not giving up yet. Plans to resume TPN next week. She continues work-up for neuro issues. She has no future appt with Dr. Wilkerson at this time. Madeline Britt, MSN, RN, Clinical Nurse Specialist [address] [phone] \ ----- Message from Mayra Crook [facility] sent at 07/25/2023 1:08 PM EST ----- Regarding: RE: update Hello. Unfortunately we did not get Chandrika's pump back that was sent out in the beginning of ont. We wanted to interrogate that one as well to assess her compliance after the new year. 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 Mayra ----- Message ----- From: Madeline Britt RN Sent: 07/25/2023 12:36 PM EST To: Vic Wilkerson DO; # Subject: update She has not reached out to me. Madeline ----- Message ----- From: Vic Wilkerson DO Sent: 07/25/2023 9:02 AM EST To: Madeline Britt RN; Mayra Crook [facility] Morning! Any updates on Patricia?? --CDS documented in this encounter Plan of Treatment Upcoming Encounters Date Type Department Care Team (Late st Contact Info) Description 08/21/2023 10:45 AM EST Immunization/Injection Hematology/Oncology Treatment, [place] [address] [place] [phone] Nurse, Med [address] [place] [address] 08/25/2023 10:15 AM EST Telemedicine Urology Grace Martinez [address] [place] [address] [place] [address] Christopher Almonte MD [address] [place] [address] [place] [address] 7, Telemed [facility]rology [address] [facility] [place] [address] 09/01/2023 5:30 PM EST Telemedicine Psychiatry, [place] [address] [place] [address] Alexis Serna MD [address] [place] [address] 09/02/2023 2:30 PM EST Imaging Radiology [address], [address] [place] [address] 09/02/2023 3:15 PM EST Imaging Radiology [address] [place] [address] 09/12/2023 3:20 PM EDT Office Visit Nephrology [address] [place] [address] Eliza Boles MD [address] [place] [address] 09/26/2023 11:20 AM EDT Office Visit Family Medicine [address] [place] [phone] Evelyn Andrews MD [address] [place] [address] [place] [address] 10/02/2023 9:20 AM EDT Office Visit Neurology [facility] [place] [address] [facility] [place] [address] Aris Mohr MD [address] [place] [address] 10/17/2023 3:20 PM EDT Office Visit Gastroenterology, [facility] [address] [place] [address] Milind Yadav MD [address] [place] [address] Health Maintenance Due Date Last Done Comments HPV/Co-Test 1993 Cologuard 2008 Fecal Occult Blood Test 2008 Sigmoidoscopy 2008 Mammogram 08/18/2011 08/18/2010, 08/11/2009 Cervical Cancer Screening 09/27/2014 Pap Smear 09/27/2014 09/28/2011, 11/2010, 07/07/2010, Additional history exists Depression, Most Recent Score >= 10 (will fire each visit until score < 10) 05/23/2023 05/22/2023 Albumin/Creatinine Ratio 08/23/2023 08/23/2022, 08/25 Colonoscopy 12/11/2023 12/10/2013, 11/24, 01/15/2007 Colorectal Cancer Screening 12/11/2023 GFR 02/12/2024 08/14/2023, 07/27, 07/31/2023, Additional history exists CKD HGB USE SMARTSET 02524 06/12/202406/12, 03/13/2023, 03/13/2023, Additional history exists CKD PHOS USE SMARTSET 17822 08/14/202407/27, 08/14/2023, 07/31/2023, Additional history exists DTaP,Tdap,and Td Vaccines (2 [...] encounter Medical Devices Implanted Type Area Manager Quality Device Identifier Shelf Expiration Date Model / Serial / Lot Stent Axios 20mm - [id number] Implanted:Qty: 1 on 01/04/2021 by Leyda Garcia MD at OR [facility] N/A: Stomach [employer] : ENDOSCOPY 11/20/2021 [id number] / / [id number] documented as of this encounter Advance Directives Documents on File Type Date Recorded Patient Rolloff Driver Expl anation POLST 01/03/2022 [place] [facility] FOR [...] Other - (no specific identity) Health Care Rolloff Driver (appointed verbally by patient or by statute hierarchy) Rowdy Kraus Health Care Rolloff Driver (appointed verbally by patient or by statute hierarchy) Care Teams Wool Fleece Grader Relationship Specialty Start Date End Date Evelyn Andrews MD [address] [place] [address] [place] [address] PCP - General Family Medicine 05/04/18 documented as of this encounter
--- OUTSIDE RECORDS SUMMARY | 2023-12-07 18:41 | External Medical Summary ---
Author Name Unknown Address Unknown Organization [id number]:[facility] [address] [place] [address] Laboratory Report Ordering Provider Test Date Status TONY RAMIREZ 08/21/2023 10:56:56 Final Observation Date Value Abnormality Reference (Units ) Status Phosphate 08/21/2023 10:56:56 4.1 2.5-4.8 (m g/dL) Final Performing Location [facility] [place] [address]
--- OUTSIDE RECORDS SUMMARY | 2023-12-07 18:41 | External Medical Summary ---
Author Name Unknown Address Unknown Organization K01:[facility] - [address] [place] [address] Laboratory Report Ordering Provider Test Date Status TAMY PATTERSON 08/23/2023 14:29:40 Final Normal: <30 mg/g creatinine< br/>High: 30-300 mg/g creatinine
Very High: >300 mg/g creatinine
Nephrotic: >2200 mg/g creatinine Observation Date Value Abnormality Reference (Units ) Status Albumin, Urine 08/23/2023 14:29:40 <1.20 (mg/dL) Final Creatinine, Urine 08/23/2023 14:29:40 47 (mg/dL) Final Albumin/Creatinine [Mass Ratio] in Urine 08/23/2023 14:29:40 <26 <30 (mg/g Creat) Final Performing Location [facility]ORY [facility] - [address] [place] [address]
--- OUTSIDE RECORDS SUMMARY | 2023-12-07 18:41 | External Medical Summary ---
Author Name Unknown Address Unknown Organization : Laboratory Report Ordering Provider Test Date Status TAMY PATTERSON 08/21/2023 10:56:56 Final Observation Date Value Abnormality Reference (Units ) Status Copper 08/21/2023 10:56:56 84 70-175 (mc g/dL) Final This test was developed and its analytical performance
characteristics have been determined by [facility]
[place] It has
not been cleared or approved by the U.S. Food and Drug
Administration. This assay has been validated pursuant
to the CLIA regulations and is used for clinical
purposes.

Test Performed at:
[facility]
[address]
[place] [address]
Armando Chanel M.D., Ph.D.,Director of Laboratories Performing Location
--- OUTSIDE RECORDS SUMMARY | 2023-12-07 18:41 | External Medical Summary ---
Author Name Unknown Address Unknown Organization K09:[facility] [place] [address] Laboratory Report Ordering Provider Test Date Status TONY RAMIREZ 08/21/2023 10:56:56 Final Observation Date Value Abnormality Reference (Units ) Status Magnesium 08/21/2023 10:56:56 1.8 1.5-2.6 (m g/dL) Final Performing Location [facility] [place] [address]
--- OUTSIDE RECORDS SUMMARY | 2023-12-07 18:41 | External Medical Summary | Summary of Care ---
Author Name Unknown Organization [facility] Address [address] [place] [address] Phone [phone] Care Team Providers Care Pot Fireman Name Role Phone Evelyn Andrews MD Primary Care Prov ider Reason for Visit * Reason Comments Procedure Dressing change/labs Encounter Details Date Type Department Care Team (Latest Contact Info) Description 08/21/2023 10:45 AM EST Immunization/ Injection Hematology/Oncology Treatment, [place] [address] [place] [address] Nurse, Med [address] [place] [address] Encounter for adjustment and management of vascular access device*; Severe protein-energy malnutrition (HCC); Copper deficiency myeloneuropathy (HCC) Allergies Active Allergy Reactions Criticality Noted Date Comments Amoxicillin Edema airway High 01/22/2003 Oxybutynin 03/25/2023 Mouth ulcers Sulfa Antibiotics Edema airway High 08/15/2006 documented as of this encounter (statuses as of 08/21/2023) Medications Medication Sig Dispensed Refills Start Date [...] the morning. 30 Capsule 0 3 Active Vitamin D (Ergocalciferol) 1.25 MG (83074 UT) Oral Capsule (Drisdol)Indications :Diarrhea due to malabsorption TAKE ONE CAPSULE BY MOUTH EVERY OTHER DAY 12 Capsule 6 3 08/26/19 24 Active DULoxetine HCl 60 MG Oral Capsule [...] Cough. 120 mL 0 4 Active Nystatin 924129 UNIT/GM External Cream APPLY TO AFFECTED AREA [...] FOR DAIRRHEA 60 Tablet 0 4 Active Asfgkpvrcl-THAG-Nxsn eine 50-325-40 MG Oral Tablet (Fioricet)Indication s:Migraine [...] as of this encounter (statuses as of 08/21/2023) Active Problems Problem Noted Date Diagnosed Date [...] as of this encounter (statuses as of 08/21/2023) Resolved Problems Problem Noted Date Diagnosed Date Resolved Date Old [place] (myocardial infarction) 03/01/2023 03/01/2023 Atherosclerosis of [place] [...] malnutrition 09/28/2018 09/23/2021 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/2021 INSULATION NOZZLEMAN 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 02/06/2017 05/02/2018 INSULATION NOZZLEMAN 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 02/06/2017 07/09/2019 Iron deficiency anemia 06/28/201109/20 Overview: ICD-10 update of inactive term Iron deficiency anemia 06/28/201109/20 Overview: ICD-10 update of inactive term Iron deficiency anemia pat paulino to inadequate dietary iron intake 09/26/2008 3 Infected postoperative seroma 06/02/2003 09/20/2012 PANNICULITIS, UNSP SITE 05/14/200311/2022 documented as of this encounter (statuses as of 08/21/2023) Immunizations Name Administration Dates Next Due COVID-19 mRNA, LNP-s, No Pre serve, 2-Dose Series ([employer]) 02/16/2021,11/25/2020,11/01/2020 COVID-19, MRNA-LNP, 23-24, P F, 30 MCG/0.3 mL, 12 YRS AND ABOVE, IM ([employer]) 04/10/2023 Covid-19, Mrna, Lnp-s, Pf, B ivalent, 30 Mcg, IM, 12 yrs and above ([employer]) 04/12/2022 Pneumococcal Conjugate Vacci ne, 20-valent ([id number]) 12/10/2021 Pneumococcal Polysaccharide PPV23 (Pneumovax) 07/21/2009 Seasonal [...] as of this encounter Nursing Notes * Veda Cuevas RN - 08/21/2023 11:34 AM EST Chair 9. Patient arrived for [place] dressing change with lab work. Dressing changed using sterile techniqueand kit provided. Labs drawn via non-TPN dedication lumen. Patient left facility in stable condition without further needs, questions, concerns. Patient to return next week for dressing change again. documented in this encounter Plan of Treatment Upcoming Encounters Date Type Department Care Team (Late st Contact Info) Description 08/25/2023 10:15 AM EST Telemedicine Urology Grace Martinez [address] [place] [address] Christopher Almonte MD [address] [place] [address] 7, Telemed [facility] Urology Ex [address] [facility] [place] [address] 09/01/2023 5:30 PM EST Telemedicine Psychiatry, [place] [address] [place] [address] Alexis Serna MD [address] [place] [phone] 09/02/2023 2:30 PM EST Imaging Radiology [address] [place] [address] 09/02/2023 3:15 PM EST Imaging Radiology [address] [place] [address] 09/12/2023 3:20 PM EDT Office Visit Nephrology [address] [place] [address] Eliza Boles MD [address] [place] [address] [place] [address] 09/26/2023 11:20 AM EDT Office Visit Family Medicine [address] [place] [phone] Evelyn Andrews MD [address] [place] [address] [place] [address] 10/02/2023 9:20 AM EDT Office Visit Neurology [address] [place] [address] Aris Mohr MD [address] [place] [address] 10/17/2023 3:20 PM EDT Office Visit Gastroenterology, [facility] [address] [place] [address] Milind Yadav MD [address] [place] [address] Pending Results Name Type Priority Associated Diagnoses Date /Time COMPREHENSIVE METABOLIC PANEL Lab Routine Severe protein-energy malnutrition (HCC) 08/21/2023 10:56 AM EST MAGNESIUM Lab Routine Severe protein-energy malnutrition (HCC) 08/21/2023 10:56 AM EST PHOSPHORUS Lab Routine Severe protein-energy malnutrition (HCC) 08/21/2023 10:56 AM EST CALCIUM, IONIZED Lab Routine Severe protein-energy malnutrition (HCC) 08/21/2023 10:56 AM EST COPPER, SERUM OR PLASMA Lab Routine Copper deficiency myeloneuropathy (HCC) 08/21/2023 10:56 AM EST Health Maintenance Due Date Last Done Comments [...] Additional history exists CKD HGB USE SMARTSET 37179 06/12/202406/12, 03/13/2023, 03/13/2023, Additional history exists CKD PHOS USE SMARTSET 73322 08/14/202407/27, 08/14/2023, 07/31/2023, Additional history exists DTaP,Tdap,and [...] this encounter Medical Devices Implanted Type Area Cell Biologist Device Identifier Shelf Expiration Date Model / Serial / Lot Stent A[employer]os 20mm - [id number] Implanted:Qty: 1 on 01/04/2021 by Leyda Garcia MD at OR [facility] N/A: Stomach [employer] : ENDOSCOPY 11/20/2021 [id number] / / [id number] documented as of this encounter Visit Diagnoses Diagnosis Encounter for adjustment and management of vascular access device- Primary Severe protein-energy malnutrition (HCC) Other severe protein-calorie malnutrition 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 Given 08/21/2023 11:07 AM EST 500 Units sodium chloride 0.9 % flush central line 10 mL 10 mL, IV Push, PRN Other, IV Flush, Starting on Mon08/21/23 at 1055, Until Tu08/22/23 at 1054, For 24 hours, Do not flush if lock, PICC, or central line not in place; IV infusing or unable to flush. Given 08/21/2023 11:07 AM EST 10 mL documented in this encounter Advance Directives Documents on File Type Date Recorded Patient Corporate Concierge Expl anation POLST 01/03/2022 [place] [facility] FOR LIFE-SUSTAINING TREATMENT [...] Other - (no specific identity) Health Care Corporate Concierge (appointed verbally by patient or by statute hierarchy) Rowdy Hogue [facility] Health Care Corporate Concierge (appointed verbally by patient or by statute hierarchy) Care Teams Pot Fireman Relationship Specialty Start Date End Date Evelyn Andrews MD [address] [place] [address] [place] [phone] PCP - General Family Medicine 05/04/18 documented as of this encounter
--- OUTSIDE RECORDS SUMMARY | 2023-12-07 18:41 | External Medical Summary ---
Author Name Unknown Address Unknown Organization K09:[facility] [place] [address] [place] [address] Laboratory Report Ordering Provider Test Date Status TONY RAMIREZ 08/21/2023 10:56:56 Final Observation Date Value Abnormality Reference (Units ) Status BUN 08/21/2023 10:56:56 34 Above high normal 6-20 (mg/dL) Final Creatinine 08/21/2023 10:56:56 1.2 Above high normal 0.5-1.0 (mg/dL) Final Glomerular filtration rate/1.73 sq M.predicted [Volume Rate/Area] in Serum, Plasma or Blood by Creatinine-based formula (CKD-EPI) 08/21/2023 10:56:56 52 Below low normal >=60 (mL/min) Final eGFR is calculated based on the CKD-EPI 2020 equation SODIUM 08/21/2023 10:56:56 140 135-146 (m mol/L) Final Potassium 08/21/2023 10:56:56 4.5 3.5-5.1 (m mol/L) Final Cl 08/21/2023 10:56:56 113 Above high normal 98 -107 (mmol/L) Final CO2 08/21/2023 10:56:56 18 Below low normal 22- 32 (mmol/L) Final Anion gap 08/21/2023 10:56:56 9 7-15 (mmol /L) Final Glucose 08/21/2023 10:56:56 80 70-120 (mg /dL) Final Albumin 08/21/2023 10:56:56 3.1 Below low normal 3.8 -5.0 (g/dL) Final AST (Aspartate aminotransferase) 08/21/2023 10:56:56 23 10-35 (U/L) Fin al Alk Phos 08/21/2023 10:56:56 93 35-130 (U/ L) Final Bilirubin, Total 08/21/2023 10:56:56 0.2 <=1 .2 (mg/dL) Final Calcium 08/21/2023 10:56:56 8.2 Below low normal 8.4 -10.2 (mg/dL) Final Protein 08/21/2023 10:56:56 5.5 Below low normal 6.0 -8.3 (g/dL) Final ALT (Alanine aminotransferase) 08/21/2023 10:56:56 21 10-35 (U/L) Matthew belle Performing Location [facility] [place] [address]
--- OUTSIDE RECORDS SUMMARY | 2023-12-07 18:41 | External Medical Summary | Summary of Care ---
Author Name Unknown Organization [facility] Address [address] [place] [address] Phone [phone] Care Team Providers Care Manager Transfusion Name Role Phone Evelyn Andrews MD Primary Care Prov ider Encounter Details Date Type Department Care Team (Late st Contact Info) Description 08/23/2023 Documentation Home Infusion, [place] [address] [place] [address] [address] Allergies Active Allergy Reactions Criticality Noted Date Comments Amoxicillin Edema airway High 01/22/2003 Oxybutynin 03/25/2023 Mouth ulcers Sulfa Antibiotics Edema airway High 08/15/2006 documented as of this encounter (statuses as of 08/23/2023) Medications Medication Sig Dispensed Refills Start Date [...] 3 Active Vitamin D (Ergocalciferol) 1.25 MG (45257 UT) Oral Capsule (Drisdol)Indications :Diarrhea due to [...] Cough. 120 mL 0 4 Active Nystatin 325724 UNIT/GM External Cream APPLY TO AFFECTED AREA [...] FOR DAIRRHEA 60 Tablet 0 4 Active Etdykcaqqt-XPGQ-Jnlx eine 50-325-40 MG Oral Tablet (Fioricet)Indication s:Migraine [...] as of this encounter (statuses as of 08/23/2023) Active Problems Problem Noted Date Diagnosed Date [...] as of this encounter (statuses as of 08/23/2023) Resolved Problems Problem Noted Date Diagnosed Date Resolved Date Old [place] (myocardial infarction) 03/01/2023 03/01/2023 Atherosclerosis of [place] co ronary artery without angina pectoris 02/08/2022 [...] malnutrition 09/28/2018 09/23/2021 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/2021 VICE PROVOST 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 02/06/2017 05/02/2018 VICE PROVOST 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 02/06/2017 07/09/2019 Iron deficiency anemia 06/28/201109/20 Overview: ICD-10 update of inactive term Iron deficiency anemia 06/28/201109/20 Overview: ICD-10 update of inactive term Iron deficiency anemia pat paulino to inadequate dietary iron intake 09/26/2008 3 Infected postoperative seroma 06/02/2003 09/20/2012 PANNICULITIS, [facility] SITE 05/14/200311/2022 documented as of this encounter (statuses as of 08/23/2023) Immunizations Name Administration Dates Next Due COVID-19 mRNA, LNP-s, No Pre serve, 2-Dose Series ([email or web address]) 02/16/2021,11/25/2020,11/01/2020 COVID-19, MRNA-LNP, 23-24, P F, 30 MCG/0.3 mL, 12 YRS AND ABOVE, IM (Client Outlook-Comirnat) 04/10/2023 Covid-19, Mrna, Lnp-s, Pf, B ivalent, 30 Mcg, IM, 12 yrs and above ([email or web address]) 04/12/2022 Pneumococcal Conjugate Vacci ne, 20-valent ([email or web address]) 12/10/2021 Pneumococcal Polysaccharide PPV23 (Pneumovax) 07/21/2009 Seasonal [...] Progress Notes * Mayra Crook, [facility] - 08/23/2023 3:37 PM EST [facility] Adult TPN Documentation Patient [...] orders placed or performed in visit on 08/21/23 COMPREHENSIVE METABOLIC PANEL Result Value Ref Range [...] g/dL ALT 21 10 - 35 U/L Lab Results Component Value Date/Time MAGNESIUM - [facility] 1.8 08/21/2023 10:56 AM MAGNESIUM - [facility] 1.7 05/10/2019 02:25 PM MAGNESIUM URINE 24HR 107 05/22/2013 11:39 AM MAGNESIUM-[facility] 1.3 (L) 11/30/2020 04:26 AM Lab Results Component Value Date/Time PHOSPHORUS - [facility] 4.1 08/21/2023 10:56 AM PHOSPHORUS - [facility] 3.9 05/10/2019 02:25 PM PHOSPHORUS, 24 HOUR URINE - [facility] 0.402 05/22/2013 11:39 AM PHOSPHORUS-[facility] 4.3 11/30/2020 12:00 AM [facility]OSPHORUS-[facility] 4.3 11/28/2020 09:46 AM Lab Results Component Value Date/Time CALCIUM - [facility] 8.2 (L) 08/21/2023 10:56 AM CALCIUM - [facility] 8.5 07/16/2020 12:54 PM CALCIUM, 24 HOUR URINE - [facility] 0.065 05/10/2019 02:25 PM CALCIUM, IONIZED - [facility] 1.25 08/21/2023 10:56 AM CALCIUM, IONIZED - [facility] 1.33 (H) 07/21/2009 11:31 AM Patient weight (kg):35.4 kg (08/15/23 family medicine appointment) Amino acids (gm): 85 Dextrose (gm): 250 Lipids (gm): 80 Days per week (lipids): 7 Volume (ml): 1800 Cycle (hr): 12 with two hour taper down Days per week infused: 7 Sodium Chloride (mEq): 0 Sodium Phosphate (mM): 0 Sodium Acetate (mEq): 180 Potassium Chloride (mEq): 0 Potassium Phosphate (mM): 12 Potassium Acetate (mEq): 6 Calcium Gluconate (mEq): 2.5 Magnesium Sulfate (mEq): 12 Multiple Trace elements (ml): - Multivits (ml): 10 (3 times per week) Zinc (mg): 10 Selenium (mcg): 100 Copper Chloride (mg): 1 Manganese (mg): 0.055 Chromium (mcg): - Human Regular Insulin (Units): - Octreotide (mcg): - 400 mcg IV daily Famotidine (mg): - Other: - Client is a 58 yo female on TPN for severe malnutrition. TPN CADD pump was returned and interrogated. Client did not access this pump at all while it was in the home. Reviewed labs from 08/21/23. Client dose not want TPN sent this week. She will be in touch with Madeline Britt RN about possible inpatient admission for TPN administration. Next nutrition appointment: TBD Mayra Crook RPh 08/23/2023 3:38 PM documented in this encounter Plan of Treatment Upcoming Encounters Date Type Department Care Team (Late st Contact Info) Description 08/25/2023 10:15 AM EST Telemedicine Urology Grace Martinez [address] [place] [address] Christopher Almonte MD [address] [place] [address] 7, Telemed [facility] Urology Ex Rm 132 [facility] [place] [address] 09/01/2023 5:30 PM EST Telemedicine Psychiatry, [place] [address] [place] [address] Alexis Serna MD [address] [place] [address] 09/02/2023 2:30 PM EST Imaging Radiology [address] 132 [facility] [place] [address] 09/02/2023 3:15 PM EST Imaging Radiology [address], [place] [facility] [place] [address] 09/12/2023 3:20 PM EDT Office Visit Nephrology [address] [place] [address] Eliza Boles MD [address] [place] [address] 09/26/2023 11:20 AM EDT Office Visit Family Medicine [address] [place] [address] Evelyn Andrews MD [address] [place] [address] [place] [address] 10/02/2023 9:20 AM EDT Office Visit Neurology [facility] [address] [place] [address] Aris Mohr MD [address] [place] [address] 10/17/2023 3:20 PM EDT Office Visit Gastroenterology, [facility] 132 [facility] [place] [address] Milind Yadav MD [address] [place] [address] Health Maintenance Due Date Last Done Comments [...] Additional history exists CKD HGB USE SMARTSET 81944 06/12/202406/12, 03/13/2023, 03/13/2023, Additional history exists CKD PHOS USE SMARTSET 69654 08/21/202407/28, 08/14/2023, 08/14/2023, Additional history exists DTaP,Tdap,and Td Vaccines [...] this encounter Medical Devices Implanted Type Area Greenhouse Instructor Device Identifier Shelf Expiration Date Model / Serial / Lot Stent Axios 20mm - [id number] Implanted:Qty: 1 on 01/04/2021 by Leyda Garcia MD at OR [facility] N/A: Stomach [employer] : ENDOSCOPY 11/20/2021 [id number] / / [id number] documented as of this encounter Advance Directives Documents on File Type Date Recorded Patient Equipment Operator Intermodal Yard Expl anation POLST 01/03/2022 [place] OR [facility] FOR LIFE-SUSTAINING TREATMENT Latest Code Status [...] Other - (no specific identity) Health Care Equipment Operator [employer] (appointed verbally by patient or by statute hierarchy) Rowdy Hogue [facility] Care Equipment Operator [employer] (appointed verbally by patient or by statute hierarchy) Care Teams Manager Transfusion Relationship Specialty Start Date End Date Evelyn Andrews MD [address] [place] [address] [place] [phone] PCP - General Family Medicine 05/04/18 documented as of this encounter
--- OUTSIDE RECORDS SUMMARY | 2023-12-07 18:41 | External Medical Summary | Summary of Care ---
Author Name Unknown Organization [facility] Address [address] [place] [address] Phone [phone] Care Team Providers Care Social Work Coordinator Name Role Phone Evelyn Andrews MD Primary Care Prov ider Encounter Details Date Type Department Care Team (Late st Contact Info) Description 08/23/2023 Documentation Home Infusion, [place] [address] [place] [address] [address] Allergies Active Allergy Reactions Criticality Noted Date [...] 3 Active Vitamin D (Ergocalciferol) 1.25 MG (84345 UT) Oral Capsule (Drisdol)Indications :Diarrhea due to [...] Cough. 120 mL 0 4 Active Nystatin 991688 UNIT/GM External Cream APPLY TO AFFECTED AREA [...] FOR DAIRRHEA 60 Tablet 0 4 Active Wienngverq-VGOM-Xuqz eine 50-325-40 MG Oral Tablet (Fioricet)Indication s:Migraine [...] [place] (myocardial infarction) 03/01/2023 03/01/2023 Atherosclerosis of [place] co ronary artery without angina pectoris 02/08/2022 [...] malnutrition 09/28/2018 09/23/2021 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/2021 MINING CONSULTANT 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 02/06/2017 05/02/2018 MINING CONSULTANT 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 02/06/2017 07/09/2019 Iron deficiency anemia 06/28/201109/20 Overview: ICD-10 update of inactive term Iron deficiency anemia 06/28/201109/20 Overview: ICD-10 update of inactive term Iron deficiency anemia pat paulino to inadequate dietary iron intake 09/26/2008 3 Infected postoperative seroma 06/02/2003 09/20/2012 PANNICULITIS, [facility] SITE 05/14/200311/2022 documented as of this encounter (statuses as of 08/23/2023) Immunizations Name Administration Dates Next Due COVID-19 mRNA, LNP-s, No Pre serve, 2-Dose Series (Backdoor) 02/16/2021,11/25/2020,11/01/2020 COVID-19, MRNA-LNP, 23-24, P F, 30 MCG/0.3 mL, 12 YRS AND ABOVE, IM (LineMetrics-Comirnat) 04/10/2023 Covid-19, Mrna, Lnp-s, Pf, B ivalent, 30 Mcg, IM, 12 yrs and above (Backdoor) 04/12/2022 Pneumococcal Conjugate Vacci ne, 20-valent ([id number]) 12/10/2021 Pneumococcal Polysaccharide PPV23 (Pneumovax) 07/21/2009 Seasonal [...] Progress Notes * Mayra Crook, [facility] - 08/23/2023 3:37 PM EST [facility] Adult TPN Documentation Patient [...] [address] [place] [address] Christopher Almonte MD [address] [place] [address] 7, Telemed [facility] Urology Ex Rm 132 [facility] [place] [address] 09/01/2023 5:30 PM EST Telemedicine Psychiatry, [place] [address] [place] [address] Alexis Serna MD [address] [place] [address] 09/02/2023 2:30 PM EST Imaging Radiology [address] 132 [facility] [place] [address] 09/02/2023 3:15 PM EST Imaging Radiology [address], [place] 132 [facility] [address] 09/12/2023 3:20 PM EDT Office Visit Nephrology [address] [place] [address] Eliza Boles MD [address] [place] [address] 09/26/2023 11:20 AM EDT Office Visit Family Medicine [address] [place] [address] Evelyn Andrews MD [address] [place] [address] [place] [address] 10/02/2023 9:20 AM EDT Office Visit Neurology [facility] [address] [place] [address] Aris Mohr MD [address] [place] [address] 10/17/2023 3:20 PM EDT Office Visit Gastroenterology, [facility] 132 [facility] [place] [address] Milind Yadav MD [address] [place] [address] Health Maintenance Due Date Last Done Comments [...] Additional history exists CKD HGB USE SMARTSET 16962 06/12/202406/12, 03/13/2023, 03/13/2023, Additional history exists CKD PHOS USE SMARTSET 62357 08/21/202407/28, 08/14/2023, 08/14/2023, Additional history exists DTaP,Tdap,and [...] this encounter Medical Devices Implanted Type Area Value Advisor Device Identifier Shelf Expiration Date Model / Serial / Lot Stent Axios 20mm - [id number] Implanted:Qty: 1 on 01/04/2021 by Leyda Garcia MD at OR [facility] N/A: Stomach [employer] : ENDOSCOPY 11/20/2021 [id number] / / [id number] documented as of this encounter Advance Directives Documents on File Type Date Recorded Patient Waste Specialist Expl anation POLST 01/03/2022 [place] OR [facility] FOR LIFE-SUSTAINING TREATMENT Latest Code [...] Other - (no specific identity) Health Care Waste Specialist (appointed verbally by patient or by statute hierarchy) Rowdy Hogue [facility] Care Waste Specialist (appointed verbally by patient or by statute hierarchy) Care Teams Social Work Coordinator Relationship Specialty Start Date End Date Evelyn Andrews MD [address] [place] [address] [place] [phone] PCP - General Family Medicine 05/04/18 documented as of this encounter
--- OUTSIDE RECORDS SUMMARY | 2023-12-07 18:41 | External Medical Summary | Summary of Care ---
Author Name Unknown Organization [facility] Address [address] [place] [address] Phone [phone] Care Team Providers Care Automobile Bumper Straightener Name Role Phone Evelyn Andrews MD Primary Care Prov ider Encounter Details Date Type Department Care Team (Late st Contact Info) Description 08/17/2023 Orders Only PATIENT PORTAL DO NOT DELETE THIS DEPT USED BY [place] [phone] Allergies Active Allergy Reactions Criticality Noted Date [...] 3 Active Vitamin D (Ergocalciferol) 1.25 MG (92020 UT) Oral Capsule (Drisdol)Indications :Diarrhea due to [...] Cough. 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..] 08/21/2023 10:45 AM EST Immunization/Injection Hematology/Oncology Treatment, [place] [address] [place] [address] Nurse, Med [address] [facility], [place] [address] 08/25/2023 10:15 AM EST Telemedicine Urology Grace Martinez [address] [place] [address] Christopher Almonte MD [address] [place] [address] [place] [address] 7, Telemed [facility] Urology Ex Rm 132 [facility] [place] [address] 09/01/2023 5:30 PM EST Telemedicine Psychiatry, [place] [address] [place] [address] Alexis Serna MD [address] [place] [facility] [place] [address] 09/02/2023 2:30 PM EST Imaging Radiology [address] [place] [address] 09/02/2023 3:15 PM EST Imaging Radiology [address] 132 [facility] [place] [address] 09/12/2023 3:20 PM EDT Office Visit Nephrology [address] [place] [address] Eliza Boles MD [address] [place] [address] 09/26/2023 11:20 AM EDT Office Visit Family Medicine [address] [place] [address] Evelyn Andrews MD [address] [place] [address] [place] [address] 10/02/2023 9:20 AM EDT Office Visit Neurology [facility] [address] [place] [address] Airs Mohr MD [address] [place] [address] 10/17/2023 3:20 PM EDT Office Visit Gastroenterology, [facility] 132 [facility] [place] [address] Milind Yadav MD [facility] [place] [address] Health Maintenance Due Date Last Done Comments [...] Additional history exists CKD HGB USE SMARTSET 23931 06/12/202406/12, 03/13/2023, 03/13/2023, Additional history exists CKD PHOS USE SMARTSET 09713 08/14/202407/27, 08/14/2023, 07/31/2023, Additional history exists DTaP,Tdap,and [...] this encounter Medical Devices Implanted Type Area Glazier Artist Device Identifier Shelf Expiration Date Model / Serial / Lot Stent Axios 20mm - [id number] Implanted:Qty: 1 on 01/04/2021 by Leyda Garcia MD at OR [facility] N/A: Stomach [employer] : ENDOSCOPY 11/20/2021 [id number] / / [id number] documented as of this encounter Advance Directives Documents on File Type Date Recorded Patient Typewriters Functional Tester Expl anation POLST 01/03/2022 [place] OR [facility] FOR LIFE-SUSTAINING TREATMENT [...] Other - (no specific identity) Health Care Typewriters Functional Tester (appointed verbally by patient or by statute hierarchy) Rowdy Kraus Health Care Typewriters Functional Tester (appointed verbally by patient or by statute hierarchy) Care Teams Automobile Bumper Straightener Relationship Specialty Start Date End Date Evelyn Andrews MD [address] [place] [address] [place] [phone] PCP - General Family Medicine 05/04/18 documented as of this encounter
--- OUTSIDE RECORDS SUMMARY | 2023-12-07 18:41 | External Medical Summary ---
Author Name Unknown Address Unknown Organization K01:[facility] [place] [address] [facility] [place]. [place] [address] Laboratory Report Ordering Provider Test Date Status ASHELY,TALNOE 08/21/2023 10:56:56 Final Observation Date Value Abnormality Reference (Units ) Status Calcium.ionized [Moles/volume] in Serum or Plasma by Ion-selective membrane electrode (ISE) 08/21/2023 10:56:56 1.25 1.13-1.32 (mmol/L) Final This test was developed and its performance characteristics dtermined by [employer] It has not been cleared or approved by the US Food and Drug Administration Performing Location [facility] [place] [address] [place] [address]
--- OUTSIDE RECORDS SUMMARY | 2023-12-07 18:41 | External Medical Summary | Summary of Care ---
Author Name Unknown Organization [facility] Address [address] [place] [address] Phone [phone] Care Team Providers Care Classroom Instructional Aide Name Role Phone Evelyn Andrews MD Primary Care Prov ider Reason for Visit * Reason Comments Outpatient Testing Encounter Details Date Type Department Care Team (Late st Contact Info) Description 08/23/2023 2:30 PM EST Laboratory Laboratory [address] [place] [address] , Specimen Drop Off [address] [place] [address] Chronic kidney disease, stage 3a (HCC) Allergies Active Allergy Reactions Criticality Noted [...] 3 Active Vitamin D (Ergocalciferol) 1.25 MG (46913 UT) Oral Capsule (Drisdol)Indications :Diarrhea due to [...] Cough. 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/2021 ONLINE MARKETING ANALYST 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 02/06/2017 05/02/2018 ONLINE MARKETING ANALYST 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 02/06/2017 07/09/2019 Iron deficiency anemia [...] mRNA, LNP-s, No Pre serve, 2-Dose Series (Clzby) 02/16/2021,11/25/2020,11/01/2020 COVID-19, MRNA-LNP, 23-24, P F, 30 MCG/0.3 mL, 12 YRS AND ABOVE, IM (PFIZER-Comirnaty) 04/10/2023 Covid-19, Mrna, Lnp-s, Pf, B ivalent, 30 Mcg, IM, 12 yrs and above (Pfizer) 04/12/2022 Pneumococcal Conjugate Vacci ne, 20-valent ([id number]) 12/10/2021 Pneumococcal Polysaccharide PPV23 (Pneumovax) 07/21/2009 Seasonal [...] 10:15 AM EST Telemedicine Urology Grace Martinez [address] [place] [address] Christopher Almonte MD [address] [place] [address] 7, Telemed [facility] Urology Ex 132 [facility] [place] [address] 09/01/2023 5:30 PM EST Telemedicine Psychiatry, [place] [address] [place] [address] Alexis Serna MD [address] [place] [address] 09/02/2023 2:30 PM EST Imaging Radiology [address] [address] 09/02/2023 3:15 PM EST Imaging Radiology [address] [address] 09/12/2023 3:20 PM EDT Office Visit Nephrology [address] [place] [address] Eliza Boles MD [address] [place] [address] 09/26/2023 11:20 AM EDT Office Visit Family Medicine [address] [address] Evelyn Andrews MD [address] [place] [address] [place] [address] 10/02/2023 9:20 AM EDT Office Visit Neurology [facility] [address] [place] [address] Aris Mohr MD [address] [place] [address] 10/17/2023 3:20 PM EDT Office Visit Gastroenterology, [address] [place] [address] Milind aYdav MD 132 [facility] [place] [address] Pending Results Name Type Priority Associated Diagnoses Date /Time ALBUMIN / CREATININE RATIO, URINE Lab Routine Chronic kidney disease, stage 3a (HCC) 08/23/2023 2:29 PM EST Health Maintenance Due Date Last Done [...] Additional history exists CKD HGB USE SMARTSET 69507 06/12/202406/12, 03/13/2023, 03/13/2023, Additional history exists CKD PHOS USE SMARTSET 06478 08/21/202407/28, 08/14/2023, 08/14/2023, Additional history exists DTaP,Tdap,and [...] this encounter Medical Devices Implanted Type Area Banquet Food Server Device Identifier Shelf Expiration Date Model / Serial / Lot Stent Axios 20mm - [id number] Implanted:Qty: 1 on 01/04/2021 by Leyda Garcia MD at OR [facility] N/A: Stomach [employer] : ENDOSCOPY 11/20/2021 [id number] / / [id number] documented as of this encounter Visit Diagnoses Diagnosis Chronic kidney disease, stage 3a (HCC) documented in this encounter Advance Directives Documents on File Type Date Recorded Patient Summer Associate Expl anation POLST 01/03/[address] [place] [address] [facility] FOR LIFE-SUSTAINING TREATMENT Latest Code [...] Other - (no specific identity) Health Care Summer Associate (appointed verbally by patient or by statute hierarchy) Rowdy Hogue Sibling Health Care Summer Associate (appointed verbally by patient or by statute hierarchy) Care Teams Classroom Instructional Aide Relationship Specialty Start Date End Date Evelyn Andrews MD [address] [place] [address] [place] [phone] PCP - General Family Medicine 05/04/18 documented as of this encounter
--- OUTSIDE RECORDS SUMMARY | 2023-12-07 18:41 | External Medical Summary | Summary of Care ---
Author Name Unknown Organization [facility] Address [address] [place] [address] Phone [phone] Care Team Providers Care Diesel Power Mechanic Name Role Phone Evelyn Andrews MD Primary Care Prov ider Reason for Visit * Reason Onset Date Comments Order Request 08/16/2023 Encounter Details Date Type Department Care Team (Late st Contact Info) Description 08/16/[address] [phone] Evelyn Andrews MD [address] [place] [address] [place] [address] Order Request Allergies Active Allergy Reactions [...] 3 Active Vitamin D (Ergocalciferol) 1.25 MG (01434 UT) Oral Capsule (Drisdol)Indications :Diarrhea due to [...] Cough. 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/2021 WING COVERER 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 02/06/2017 05/02/2018 WING COVERER 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 02/06/2017 07/09/2019 Iron deficiency anemia 06/28/201109/20 [...] mRNA, LNP-s, No Pre serve, 2-Dose Series ([employer]) 02/16/2021,11/25/2020,11/01/2020 COVID-19, MRNA-LNP, 23-24, P F, 30 MCG/0.3 mL, 12 YRS AND ABOVE, IM (PFIZER-Comirnaty) 04/10/2023 Covid-19, Mrna, Lnp-s, Pf, B ivalent, 30 Mcg, IM, 12 yrs and above (Pfizer) 04/12/2022 Pneumococcal Conjugate Vacci ne, 20-valent ([id number]) 12/10/2021 Pneumococcal Polysaccharide PPV23 (Pneumovax) 07/21/2009 Seasonal [...] To better serve your patient's needs, order [id number] for Chandrika Hogue (1965) is now being fulfilled by [employer]. If you need assistance with this order, please call . * Telephone Encounter - Serene Vargas LPN - 08/16/2023 7:24 AM EST Gel cushion order sent through [employer] documented in this encounter Plan of Treatment Upcoming Encounters Date Type Department Care Team (Late st Contact Info) Description 08/25/2023 10:15 AM EST Telemedicine Urology Grace Martinez [address] [place] [address] Christopher Almonte MD [address] [place] [address] 7, Telemed [facility] Urology [address] [place] [address] 09/01/2023 5:30 PM EST Telemedicine Psychiatry, [place] [address] [place] [address] Alexis Serna MD [address] [place] [address] 09/02/2023 2:30 PM EST Imaging Radiology [address] [place] [address] 09/02/2023 3:15 PM EST Imaging Radiology [address] [place] [address] 09/12/2023 3:20 PM EDT Office Visit Nephrology [address] [place] [address] Eliza Boles MD [address] [place] [address] [place] [address] 09/26/2023 11:20 AM EDT Office Visit Family Medicine [address] [place] [phone] Evelyn Andrews MD [address] [place] [address] [place] [address] 10/02/2023 9:20 AM EDT Office Visit Neurology [facility] [address] [place] [address] Aris Mohr MD [address] [place] [address] 10/17/2023 3:20 PM EDT Office Visit Gastroenterology, [facility] [address] [place] [address] Milind Yadav MD [address] [place] [address] Health Maintenance Due Date Last Done Comments [...] Additional history exists CKD HGB USE SMARTSET 86010 06/12/202406/12, 03/13/2023, 03/13/2023, Additional history exists CKD PHOS USE SMARTSET 29975 08/21/202407/28, 08/14/2023, 08/14/2023, Additional history exists DTaP,Tdap,and [...] this encounter Medical Devices Implanted Type Area Investment Sales Assistant Device Identifier Shelf Expiration Date Model / Serial / Lot Stent Axios 20mm - [id number] Implanted:Qty: 1 on 01/04/2021 by Leyda Garcia MD at OR [facility] N/A: Stomach [employer] : ENDOSCOPY 11/20/2021 [id number] / / [id number] documented as of this encounter Advance Directives Documents on File Type Date Recorded Patient Jukebox Routeman Expl anation POLST 01/03/2022 [place] OR [facility] FOR LIFE-SUSTAINING TREATMENT Latest Code Status [...] Other - (no specific identity) Health Care Jukebox Routeman (appointed verbally by patient or by statute hierarchy) Rowdy Mykel Sibling Health Care Jukebox Routeman (appointed verbally by patient or by statute hierarchy) Care Teams Diesel Power Mechanic Relationship Specialty Start Date End Date Evelyn Andrews MD [address] [place] [address] [place] [address] PCP - General Family Medicine 05/04/18 documented as of this encounter
--- OUTSIDE RECORDS SUMMARY | 2023-12-07 18:41 | External Medical Summary | Summary of Care ---
Author Name Unknown Organization [facility] Address [address] [place] [address] Phone [phone] Care Team Providers Care Digital Engineer Name Role Phone Evelyn Andrews MD Primary Care Prov ider Reason for Visit * Reason Onset Date Comments Medication Question 08/21/2023 Encounter Created in Error 08/21/2023 Encounter Details Date Type Department Care Team (Late st Contact Info) Description 08/21/2023 Telephone [facility] [address] [place] [address] Vic Wilkerson DO [address] [place] [address] Medication Question; Encounter Created in ... Allergies Active Allergy Reactions Criticality Noted Date [...] 3 Active Vitamin D (Ergocalciferol) 1.25 MG (74317 UT) Oral Capsule (Drisdol)Indications :Diarrhea due to [...] Cough. 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/2021 DIRECTOR OF LABORATORY OPERATIONS 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 02/06/2017 05/02/2018 DIRECTOR OF LABORATORY OPERATIONS 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 02/06/2017 07/09/2019 Iron deficiency anemia 06/28/201109/20 [...] mRNA, LNP-s, No Pre serve, 2-Dose Series ([employer]) 02/16/2021,11/25/2020,11/01/2020 COVID-19, MRNA-LNP, 23-24, P F, 30 MCG/0.3 mL, 12 YRS AND ABOVE, IM (PFIZER-Comirnaty) 04/10/2023 Covid-19, Mrna, Lnp-s, Pf, B ivalent, 30 Mcg, IM, 12 yrs and above (Pfizer) 04/12/2022 Pneumococcal Conjugate Vacci ne, 20-valent ([id number]) 12/10/2021 Pneumococcal Polysaccharide PPV23 (Pneumovax) 07/21/2009 Seasonal [...] [address] [place] [address] Christopher Almonte MD [address] [place] [address] 7, Telemed [facility] Urology Ex Rm [address] [place] [address] 09/01/2023 5:30 PM EST Telemedicine Psychiatry, [place] [address] [place] [address] Alexis Serna MD [address] [place] [address] 09/02/2023 2:30 PM EST Imaging Radiology [address] [place] [address] 09/02/2023 3:15 PM EST Imaging Radiology [address] [facility] [place] [address] 09/12/2023 3:20 PM EDT Office Visit Nephrology [address] [place] [address] Eliza Boles MD [address] [facility] [address] 09/26/2023 11:20 AM EDT Office Visit Family Medicine [address] [place] [address] Evelyn Andrews MD [address] [place] [address] [place] [address] 10/02/2023 9:20 AM EDT Office Visit Neurology [facility] [address] [place] [address] Aris Mohr MD [address] [place] [address] 10/17/2023 3:20 PM EDT Office Visit Gastroenterology, [address] [place] [address] Milind Yadav MD 132 [facility] [place] [address] Health Maintenance Due Date Last Done Comments [...] Additional history exists CKD HGB USE SMARTSET 42888 06/12/202406/12, 03/13/2023, 03/13/2023, Additional history exists CKD PHOS USE SMARTSET 72577 08/21/202407/28, 08/14/2023, 08/14/2023, Additional history exists DTaP,Tdap,and [...] this encounter Medical Devices Implanted Type Area Lamp Assembler Device Identifier Shelf Expiration Date Model / Serial / Lot Stent Axios 20mm - [id number] Implanted:Qty: 1 on 01/04/2021 by Leyda Garcia MD at OR [facility] N/A: Stomach [employer] : ENDOSCOPY 11/20/2021 [id number] / / [id number] documented as of this encounter Advance Directives Documents on File Type Date Recorded Patient Dredge Engineer Expl anation POLST 01/03/2022 [place] OR [facility] FOR LIFE-SUSTAINING TREATMENT [...] Other - (no specific identity) Health Care Dredge Engineer (appointed verbally by patient or by statute hierarchy) Rowdy Hogue Sibling Health Care Dredge Engineer (appointed verbally by patient or by statute hierarchy) Care Teams Digital Engineer Relationship Specialty Start Date End Date Evelyn Andrews MD [address] [place] [address] [place] [phone] PCP - General Family Medicine 05/04/18 documented as of this encounter
--- OUTSIDE RECORDS SUMMARY | 2023-12-07 18:42 | External Medical Summary | Summary of Care ---
Author Name Unknown Organization [facility] Address [address] [place] [address] Phone [phone] Care Team Providers Care Finishing Tunnel Operator Name Role Phone Evelyn Andrews MD Primary Care Prov ider Encounter Details Date Type Department Care Team (Late st Contact Info) Description 2023 Telephone Hematology/Oncology Treatment, [place] [address] [place] [address] Boogie Ortiz MD 200 [facility] [place] [address] Allergies Active Allergy Reactions Criticality Noted Date Comments Amoxicillin Edema airway High 01/22/2003 Oxybutynin 03/25/2023 Mouth ulcers Sulfa Antibiotics Edema airway High 08/15/2006 documented as of this encounter (statuses as of 08/09/2023) Medications Medication Sig Dispensed Refills Start Date End Date Status CYANOCOBALAMIN 1000 MCG/ML IJ SOLN one injection monthly 0 Active CALCITRIOL 0.25 MCG PO CAPS 1 CAPSULE BY MOUTH MONDAYS/WEDNESDAYS/ FRIDAYS 5 04/10/2014 Active [facility] ACETAMINOPHEN EX ST 500 MG Tablet TAKE 1 CAPSULE BY MOUTH EVERY 4 HOURS 0 07/03/2019 Active Oyster Shell Calcium 500 MG Oral Tablet Take 2 Tabs by mouth daily. 60 Tab 5 04/07/2020 Active Estradiol 0.1 MG/GM Vaginal Cream (Estrace) Administer 1 g into the vagina in the morning. Apply periurethrally as directed.. 42.5 g 2 05/23/2022 Active Dicyclomine HCl 20 MG Oral Tablet (Bentyl)Indications :Nausea and vomiting,Epigastric pain TAKE 1 TABLET BY MOUTH IN THE AM, AT NOON, IN THE PM AND AT BEDTIME NEEDED FOR ABDOMINAL PAIN Strength: 20 mg 480 Tablet 1 09/28/2022 Active Lidocaine 4 % External Patch (Aspercreme) Place 1 Patch every 12 hours topically on the skin in the morning - remove old patch first. Do not start before December 16, 2022. 30 Patch 0 12/16/2022 Active Zinc Sulfate 220 (50 Zn) MG Oral Capsule Take 1 Capsule by mouth in the morning. 30 Capsule 0 12/15/2022 Active Vitamin D (Ergocalciferol) 1.25 MG (71224 UT) Oral Capsule (Drisdol)Indication s:Diarrhea due to malabsorption TAKE ONE CAPSULE BY MOUTH EVERY OTHER DAY 12 Capsule 6 08/26/2022 08/26/19 24 Active DULoxetine HCl 60 MG Oral Capsule Delayed Release Particles (Cymbalta) Take 2 Capsules by mouth in the morning. 180 Capsule 2 02/21/2023 Active SUMAtriptan Succinate 50 MG Oral Tablet (Imitrex)Indication s:Migraine variant MAX OF 2 TABS PER ATTACK AND NO MORE THAN 3 X WEEKLY 10 Tablet 5 03/16/2023 Active Myrbetriq 25 MG Oral Tablet Extended Release 24 Hour (Mirabegron ER)Indications:Urge incontinence of urine Take 1 Tablet by mouth in the morning. 90 Tablet 3 04/03/2023 Active Mirtazapine 45 MG Oral Tablet (Remeron)Indication s:Recurrent major depressive disorder, in partial remission (HCC) Take 1 Tablet by mouth at bedtime. 30 Tablet 3 04/12/2023 Active Promethazine HCl 25 MG Oral Tablet (Phenergan)Indicati ons:Nausea Take 1 Tablet by mouth every 8 hours as needed for Nausea. 30 Tablet 3 06/01/2023 Active predniSONE 20 MG Oral Tablet (Deltasone) Take 80 mg for 2 days, 60 mg for 2 days, 40 mg for 2 days, 20 mg for 2 days then 10 mg for 2 days 25 Tablet 0 06/05/2023 Active ALPRAZolam 0.25 MG Oral Tablet (xaNAX)Indications: Anxiety Take 1 Tablet by mouth at bedtime as needed for Sleep. 30 Tablet 3 06/14/2023 Active Rizatriptan Benzoate 10 MG Oral Tablet (Maxalt)Indications :Migraine variant TAKE 1 TAB BY MOUTH DAILY NEEDED FOR MIGRAINE. 10 Tablet 5 06/14/2023 Active Furosemide 20 MG Oral Tablet (Lasix) Take 1 Tablet by mouth in the morning. 7 Tablet 0 06/27/2023 Active guaiFENesin-Codeine 100-10 MG/5ML Oral Syrup (Robitussin AC)Indications:COVI D-19 Take 5 mL by mouth every 4 hours as needed for Cough. 120 mL 0 06/28/2023 Active Nystatin 112937 UNIT/GM External Cream APPLY TO AFFECTED AREA TWICE A DAY 30 g 2 06/30/2023 Active Diphenoxylate-Atrop ine 2.5-0.025 MG Oral Tablet (Lomotil)Indication s:Migraine variant TAKE ONE TABLET BY MOUTH 4 TIMES DAILY NEEDED FOR DAIRRHEA 60 Tablet 0 07/05/2023 Active OLANZapine 5 MG Oral Tablet Disintegrating (zyPREXA zyDIS) Place 1 Tablet on tongue in the morning. 30 Tablet 5 07/04/2023 Active Gshwsaaszc-XXKC-Bhw feine 50-325-40 MG Oral Tablet (Fioricet)Indicatio ns:Migraine variant TAKE ONE TABLET EVERY 6 HOURS NEEDED FOR PAIN 90 Tablet 1 07/14/2023 Active Omeprazole 20 MG Oral Capsule Delayed Release (PriLOSEC) TAKE 1 CAPSULE BY MOUTH EVERY DAY IN THE MORNING 90 Capsule 4 07/26/2023 Active Ondansetron 4 MG Oral Tablet Disintegrating (Zofran)Indications :Intractable vomiting with nausea PLACE 1 TABLET ON TONGUE EVERY 8 HOURS NEEDED FOR NAUSEA. 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/2021 DIRECTOR OF STUDENT SERVICES 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 02/06/2017 05/02/2018 DIRECTOR OF STUDENT SERVICES 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 02/06/2017 07/09/2019 Iron deficiency anemia 06/28/201109/20 Overview: ICD-10 update of inactive term Iron deficiency anemia 06/28/201109/20 Overview: ICD-10 update of inactive term Iron deficiency anemia pat paulino to inadequate dietary iron intake 09/26/2008 3 Infected postoperative seroma 06/02/2003 09/20/2012 PANNICULITIS, [facility] SITE 05/14/200311/2022 documented as of this encounter (statuses as of 08/09/2023) Immunizations Name Administration Dates Next Due COVID-19 mRNA, LNP-s, No Pre serve, 2-Dose Series ([employer]) 02/16/2021,11/25/2020,11/01/2020 COVID-19, MRNA-LNP, 23-24, P F, 30 MCG/0.3 mL, 12 YRS AND ABOVE, IM ([employer] [facility]) 04/10/2023 Covid-19, Mrna, Lnp-s, Pf, B ivalent, 30 Mcg, IM, 12 yrs and above (OpenText) 04/12/2022 Pneumococcal Conjugate Vacci ne, 20-valent ([id number]) 12/10/2021 Pneumococcal Polysaccharide PPV23 (Pneumovax) 07/21/2009 Seasonal [...] encounter Miscellaneous Notes * Telephone Encounter - Sara Collier OSA - 08/08/2023 2:22 PM EST Called [facility]2. Spoke to patient and she stated that she canceled appt on 08/06/23. Due to on [birth year] birthday and she wanted to take a week off from treatment. She is scheduled to come on 08/14/23.Patient is aware. * Telephone Encounter - Sara Collier OSA - 2023 1:21 PM EST Called patient and unable to lmom VM is full. * Telephone Encounter - Sis Castle RN - 2023 12:47 PM EST Patient did not show up for PICC dressing change and labs today. Scheduling: Please reach out to patient to see when she would like to reschedule. Nurse Specialist: Please update beacon. documented in this encounter Plan of Treatment Upcoming Encounters Date Type Department Care Team (Late st Contact Info) Description 08/12/2023 8:00 AM EST Imaging Radiology [address] [place] [address] 08/12/2023 8:45 AM EST Imaging Radiology [address] [place] [address] 08/14/2023 10:45 AM EST Immunization/Injection Hematology/Oncology Treatment, [address] [place] [address] Nurse, Med [address] [place] [address] [place] [address] 08/14/2023 11:30 AM EST Telemedicine Psychiatry, [place] [address] [place] [address] Alexis Serna MD [address] [place] [address] 08/15/2023 3:40 PM EST Office Visit Family Medicine [address] [phone] Evelyn Andrews MD [address] [place] [address] [place] [address] 08/21/2023 10:45 AM EST Immunization/Injection Hematology/Oncology Treatment, [address] [address] Nurse, Med 4 200 [facility] [place] [address] 08/25/2023 10:15 AM EST Telemedicine Urology [place] [address] [place] [address] Christopher Almonte MD [address] [place] [address] 7, Telemed [facility] Urology Ex Rm [address] [place] [address] 09/12/2023 3:20 PM EDT Office Visit Nephrology [address] [place] [address] Eliza Boles MD 200 [facility] [place] [address] 10/02/2023 9:20 AM EDT Office Visit Neurology [facility] 200 [facility] [place] [address] Aris Mohr MD 200 [facility] [place] [address] 10/17/2023 3:20 PM EDT Office Visit Gastroenterology, [facility] [address] [place] [address] Milind Yadav MD [address] [place] [address] Health Maintenance Due Date Last Done Comments [...] 11/24, 01/15/2007 Colorectal Cancer Screening 12/11/2023 GFR 01/29/2024 07/31/2023, 06/27, 06/20/2023, Additional history exists CKD HGB USE SMARTSET 52005 06/12/202406/12, 03/13/2023, 03/13/2023, Additional history exists CKD PHOS USE SMARTSET 76814 07/31/202410/2023, 07/24/2023, 06/20/2023, Additional history exists DTaP,Tdap,and Td Vaccines (2 [...] this encounter Medical Devices Implanted Type Area Cloth Printing Inspector Device Identifier Shelf Expiration Date Model / Serial / Lot Stent Axios 20mm - [id number] Implanted:Qty: 1 on 01/04/2021 by Leyda Garcia MD at OR [facility] N/A: Stomach [employer] : ENDOSCOPY 11/20/2021 [id number] / / [id number] documented as of this encounter Advance Directives Documents on File Type Date Recorded Patient Group Marketing Vp Expl anation POLST 01/03/2022 [place] OR [facility] FOR LIFE-SUSTAINING TREATMENT Latest Code [...] Other - (no specific identity) Health Care Group Marketing Vp (appointed verbally by patient or by statute hierarchy) Rowdy Hogue Sibling Health Care Group Marketing Vp (appointed verbally by patient or by statute hierarchy) Care Teams Finishing Tunnel Operator Relationship Specialty Start Date End Date Evelyn Andrews MD [address] [place] [address] [place] [address] PCP - General Family Medicine 05/04/18 documented as of this encounter
--- OUTSIDE RECORDS SUMMARY | 2023-12-07 18:42 | External Medical Summary | Summary of Care ---
Author Name Unknown Organization [facility] Address [address] [place] [address] Phone [phone] Care Team Providers Care Master Automotive Glass Technician Name Role Phone Evelyn Andrews MD Primary Care Prov ider Reason for Visit * Reason Comments Procedure Dressing change/labs Encounter Details Date Type Department Care Team (Latest Contact Info) Description 08/14/2023 10:45 AM EST Immunization/I njection Hematology/Oncology Treatment, [place] [address] [place] [address] Nurse, Med [address] [place] [address] Encounter for adjustment and management of vascular access device*; Severe protein-energy malnutrition (HCC); Chronic kidney disease, stage 3a (HCC) Allergies Active Allergy Reactions Criticality Noted Date Comments Amoxicillin Edema airway High 01/22/2003 Oxybutynin 03/25/2023 Mouth ulcers Sulfa Antibiotics Edema airway High 08/15/2006 documented as of this encounter (statuses as of 08/14/2023) Medications Medication Sig Dispensed Refills Start Date [...] 12/15/2022 Active Vitamin D (Ergocalciferol) 1.25 MG (98373 UT) Oral Capsule (Drisdol)Indication s:Diarrhea due to [...] Cough. 120 mL 0 06/28/2023 Active Nystatin 679735 UNIT/GM External Cream APPLY TO AFFECTED AREA TWICE A DAY 30 g 2 06/30/2023 Active OLANZapine 5 MG Oral Tablet Disintegrating (zyPREXA zyDIS) Place 1 Tablet on tongue in the morning. 30 Tablet 5 07/04/2023 Active Ikztqhxarz-YKYS-Fir feine 50-325-40 MG Oral Tablet (Fioricet)Indicatio ns:Migraine [...] FOR NAUSEA. 90 Tablet 1 07/26/2023 Active Diphenoxylate-Atrop ine 2.5-0.025 MG Oral Tablet (Lomotil)Indication s:Migraine variant TAKE ONE TABLET BY MOUTH 4 TIMES DAILY NEEDED FOR DAIRRHEA 60 Tablet 0 08/09/2023 Active documented as of this encounter (statuses as of 08/14/2023) Active Problems Problem Noted Date Diagnosed Date [...] as of this encounter (statuses as of 08/14/2023) Resolved Problems Problem Noted Date Diagnosed Date Resolved Date Old [place] (myocardial infarction) 03/01/2023 03/01/2023 Atherosclerosis of [place] ronary artery without angina pectoris 02/08/2022 [...] malnutrition 09/28/2018 09/23/2021 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/2021 SHRUB PLANTER 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 02/06/2017 05/02/2018 SHRUB PLANTER 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 02/06/2017 07/09/2019 Iron deficiency anemia 06/28/201109/20 Overview: ICD-10 update of inactive term Iron deficiency anemia 06/28/201109/20 Overview: ICD-10 update of inactive term Iron deficiency anemia pat paulino to inadequate dietary iron intake 09/26/2008 3 Infected postoperative seroma 06/02/2003 09/20/2012 PANNICULITIS, UNSP SITE 05/14/200311/2022 documented as of this encounter (statuses as of 08/14/2023) Immunizations Name Administration Dates Next Due COVID-19 mRNA, LNP-s, No Pre serve, 2-Dose Series (MyTennisLessons) 02/16/2021,11/25/2020,11/01/2020 COVID-19, MRNA-LNP, 23-24, P F, 30 MCG/0.3 mL, 12 YRS AND ABOVE, IM (Zilico-ComirnatMobly) 04/10/2023 Covid-19, Mrna, Lnp-s, Pf, B ivalent, 30 Mcg, IM, 12 yrs and above (MyTennisLessons) 04/12/2022 Pneumococcal Conjugate Vacci ne, 20-valent (Lmsigcg63) 12/10/2021 Pneumococcal Polysaccharide PPV23 (Pneumovax) 07/21/2009 Seasonal [...] as of this encounter Nursing Notes * Vead Cuevas, RN - 08/14/2023 12:39 PM EST Chair 4. Patient here for central line dressing change. Dressing changed using sterile technique and kit provided, labs drawn from non- TPN dedicated lumen without difficulty. Patient did not have dressing changes since 07/31, unable to come last week. Dressing noted to be falling off but site appears CDI/WNL. Patient is seeing her PCP tomorrow -- states she has a sore spot on her tailbone. RN assessed site -- noticed it to be very small, smaller than the size of a pinky fingernail but it does look pink and has a white coating over top of the area, looks like a possible start to a pressure ulcer. Patientsays she is going to discuss this with her PCP tomorrow. Patient says she still is not gaining weight with the TPN, does sit a lot some days, falls often, but she says she does have a donut pillow and does sit on pillows in general to help prevent pressure ulcers. RN educated to continue doing this, move as much as she is able, and to rotate sides the pillow is on to help reduce amount of pressure going to this area specifically. Patient communicated understanding and says this will be another thing she brings up with her PCPC appointment. Otherwise, patient left facility in stable condition without any further needs a this time. documented in this encounter Plan of Treatment Upcoming Encounters Date Type Department Care Team (Late st Contact Info) Description 08/15/2023 3:40 PM EST Office Visit Family [address] [phone] Evelyn Andrews MD [address] [place], [place] [address] [address] 08/21/2023 10:45 AM EST Immunization/Injection Hematology/Oncology Treatment, [place] 200 [place] [address] Nurse, Med [address] [place], [place] [address] [address] 08/25/2023 10:15 AM EST Telemedicine Urology Grace Martinez [address] [place] [address] [place] [phone] Christopher Almonte MD [address] [place] [address] [place] [address] 7, Telemed Amari Torres Urology [place] Rm 132 [facility] [place] [address] 09/01/2023 5:30 PM EST Telemedicine Psychiatry, [place] [address] [place] [address] Alexis Serna MD [address] [place] [address] 09/02/2023 2:30 PM EST Imaging Radiology [address] [facility] [address] 09/02/2023 3:15 PM EST Imaging Radiology [address] [facility] [place] [address] 09/12/2023 3:20 PM EDT Office Visit Nephrology [address] [place] [address] Eliza Boles MD [address] [place] [address] 10/02/2023 9:20 AM EDT Office Visit Neurology [facility] [address] [place] [address] Aris Mohr MD [address] [place] [address] 10/17/2023 3:20 PM EDT Office Visit Gastroenterology, [facility] 132 [facility] [place] [address] Milind Yadav MD [address] [place] [facility] [place] [address] Pending Results Name Type Priority Associated Diagnoses Date /Time CALCIUM, IONIZED Lab Routine Severe protein-energy malnutrition (HCC) 08/14/2023 11:28 AM EST Health Maintenance Due Date Last [...] Additional history exists CKD HGB USE SMARTSET 29080 06/12/202406/12, 03/13/2023, 03/13/2023, Additional history exists CKD PHOS USE SMARTSET 23753 08/14/202407/27, 08/14/2023, 07/31/2023, Additional history exists DTaP,Tdap,and [...] this encounter Medical Devices Implanted Type Area Automotive Exhaust Emissions Technician Device Identifier Shelf Expiration Date Model / Serial / Lot Stent Axios 20mm - [id number] Implanted:Qty: 1 on 01/04/2021 by Leyda Garcia MD at OR [facility] N/A: Stomach [employer] : ENDOSCOPY 11/20/2021 [id number] / / [id number] documented as of this encounter Procedures Procedure Name Priority Date/Time Associated Diagnosis Comments RENAL FUNCTION PANEL Routine 08/14/2023 11:29 AM EST Chronic kidney disease, stage 3a (HCC) COMPREHENSIVE METABOLIC PANEL Routine 08/14/2023 11:28 AM EST Severe protein-energy malnutrition (HCC) PHOSPHORUS Routine 08/14/2023 11:28 AM EST Severe protein-energy malnutrition (HCC) MAGNESIUM Routine 08/14/2023 11:28 AM EST Severe protein-energy malnutrition (HCC) documented in this encounter Results * (ABNORMAL) RENAL FUNCTION PANEL (08/14/2023 11:29 AM EST) BUN 33(H) 6 - 20 mg/dL 08/14/2023 12:48 PM [facility] 56- Creatinine 1.2(H) 0.5 - 1.0 mg/dL 08/14/2023 12:48 PM EST [facility] 56- Estimated Glomerular Filtration Rate 54(L) >=60 mL/min 08/14/2023 12:48 PM [facility] [place] 56- Comment:eGFR is calculated b ased on the CKD-EPI 2020 equation Sodium 137 135 - 146 mmol/L 08/14/2023 12:48 PM EST [facility] [place] 56- Potassium 5.0 3.5 - 5.1 mmol/L 08/14/2023 12:48 PM [facility] [place] 56- Chloride 109(H) 98 - 107 mmol/L 08/14/2023 12:48 PM EST [facility] 56- CO2 18(L) 22 - 32 mmol/L 08/14/2023 12:48 PM EST [facility] [place] 56- Anion Gap 10 7 - 15 mmol/L 08/14/2023 12:48 PM EST [facility] 56- Glucose 87 70 - 120 mg/dL 08/14/2023 12:48 PM EST [facility] 56- Calcium 8.3(L) 8.4 - 10.2 mg/dL 08/14/2023 12:48 PM EST [facility] 56- Albumin 3.0(L) 3.8 - 5.0 g/dL 08/14/2023 12:48 PM EST [facility] 56 Phosphorus 4.0 2.5 - 4.8 mg/dL 08/14/2023 12:48 PM EST [facility] 56 Blood Venous blood specimen / Unknown Central Line / Unknown 08/14/2023 11:29 AM EST 08/14/2023 11:57 AM EST Evelyn Forbes MD LAB BLOOD ORDERABLES [address] [place] [address] * PHOSPHORUS (08/14/2023 11:28 AM EST) Phosphorus 4.1 2.5 - 4.8 mg/dL 08/14/2023 12:47 PM EST [place] [id number] Blood Venous blood specimen / Unknown Central Line / Unknown 08/14/2023 11:28 AM EST 08/14/2023 11:57 AM EST Mayra Crook [facility] LAB BLOOD ORDERAB LES [facility] 56 [address] [place] [address] * MAGNESIUM (08/14/2023 11:28 AM EST) Magnesium 1.7 1.5 - 2.6 mg/dL 08/14/2023 12:47 PM EST [facility] Blood Venous blood specimen / Unknown Central Line / Unknown 08/14/2023 11:28 AM EST 08/14/2023 11:57 AM EST Mayra Crook [facility] LAB BLOOD ORDERAB LES [facility] [address] [place] [address] * (ABNORMAL) COMPREHENSIVE METABOLIC PANEL (08/14/2023 11:28 AM EST) BUN 33(H) 6 - 20 mg/dL 08/14/2023 12:47 PM EST [facility] 56 Creatinine 1.2(H) 0.5 - 1.0 mg/dL 08/14/2023 12:47 PM [facility] 56 Estimated Glomerular Filtration Rate 54(L) >=60 mL/min 08/14/2023 12:47 PM [facility] 56 Comment:eGFR is calculated b ased on the CKD-EPI 2020 equation Sodium 137 135 - 146 mmol/L 08/14/2023 12:47 PM [facility] 56 Potassium 5.0 3.5 - 5.1 mmol/L 08/14/2023 12:47 PM [facility] 56 Chloride 109(H) 98 - 107 mmol/L 08/14/2023 12:47 PM [facility] 56 CO2 19(L) 22 - 32 mmol/L 08/14/2023 12:47 PM [facility] 56 Anion Gap 9 7 - 15 mmol/L 08/14/2023 12:47 PM [facility] 56- Glucose 87 70 - 120 mg/dL 08/14/2023 12:47 PM [facility] 56 Albumin 3.1(L) 3.8 - 5.0 g/dL 08/14/2023 12:47 PM [facility] 56- AST 26 10 - 35 U/L 08/14/2023 12:47 PM [facility] 56- Alkaline Phosphatase 89 35 - 130 U/L 08/14/2023 12:47 PM [facility] 56- Bilirubin, Total 0.3 <=1.2 mg/dL 08/14/2023 12:47 PM [facility] 56- Calcium 8.4 8.4 - 10.2 mg/dL 08/14/2023 12:47 PM EST [facility] 56-02 Protein 5.3(L) 6.0 - 8.3 g/dL 08/14/2023 12:47 PM EST [facility] 56-02 ALT 24 10 - 35 U/L 08/14/2023 12:47 PM EST [facility] 56-02 Blood Venous blood specimen / Unknown Central Line / Unknown 08/14/2023 11:28 AM EST 08/14/2023 11:57 AM EST Mayra Crook [facility] LAB BLOOD ORDERAB LES [facility] 56- [address] [place] [address] documented in this encounter Visit Diagnoses Diagnosis Encounter for adjustment and management of vascular access device- Primary Severe protein-energy malnutrition (HCC) Other severe protein-calorie malnutrition Chronic kidney disease, stage 3a (HCC) documented in this encounter Administered Medications Active Administered Medications - up to 3 most recent administrations Medication Order MAR Action Action Date Dose Rate Site hEParin 100 UNIT/ML Lock Flush inj 500 Units 500 Units (5 mL), IV Lock, PRN Other, IV Flush, Starting on Mon08/14/23 at 1123, Until Mon08/15/23 at 1122, For 24 hours, Do not flush if lock, PICC, or central line not in place; IV infusing or unable to flush. Given 08/14/2023 11:35 AM EST 500 Units Given 08/14/2023 11:34 AM EST 500 Units sodium chloride 0.9 % flush central line 10 mL 10 mL, IV Push, PRN Other, IV Flush, Starting on Mon08/14/23 at 1123, Until Mon08/15/23 at 1122, For 24 hours, Do not flush if lock, PICC, or central line not in place; IV infusing or unable to flush. Given 08/14/2023 11:35 AM EST 10 mL Given 08/14/2023 11:34 AM EST 10 mL documented in this encounter Advance Directives Documents on File Type Date Recorded Patient Athletic Monitor Expl anation POLST 01/03/2022 [place] [facility] AT [...] Other - (no specific identity) Health Care Athletic Monitor (appointed verbally by patient or by statute hierarchy) Rowdy Kraus Health Care Athletic Monitor (appointed verbally by patient or by statute hierarchy) Care Teams Master Automotive Glass Technician Relationship Specialty Start Date End Date Evelyn Andrews MD [address] [place] [address] [place] [phone] PCP - General Family Medicine 05/04/18 documented as of this encounter
--- OUTSIDE RECORDS SUMMARY | 2023-12-07 18:42 | External Medical Summary | Summary of Care ---
Author Name Unknown Organization [facility] Address [address] [place] [address] Phone [phone] Care Team Providers Care Oven Baker Name Role Phone Evelyn Andrews MD Primary Care Prov ider Reason for Visit * Reason Comments Medication Management Encounter Details Date Type Department Care Team (Late st Contact Info) Description 08/16/2023 Documentation Home [facility], [place] [address] [place] [address] [phone] Allergies Active Allergy Reactions Criticality Noted Date Comments Amoxicillin Edema airway High 01/22/2003 Oxybutynin 03/25/2023 Mouth ulcers Sulfa Antibiotics Edema airway High 08/15/2006 documented as of this encounter (statuses as of 08/16/2023) Medications Medication Sig Dispensed Refills Start Date [...] 3 Active Vitamin D (Ergocalciferol) 1.25 MG (40507 UT) Oral Capsule (Drisdol)Indications :Diarrhea due to [...] Cough. 120 mL 0 4 Active Nystatin 263406 UNIT/GM External Cream APPLY TO AFFECTED AREA [...] FOR DAIRRHEA 60 Tablet 0 4 Active Xmwfshginc-VCIX-Xsxd eine 50-325-40 MG Oral Tablet (Fioricet)Indication s:Migraine [...] as of this encounter (statuses as of 08/16/2023) Active Problems Problem Noted Date Diagnosed Date [...] as of this encounter (statuses as of 08/16/2023) Resolved Problems Problem Noted Date Diagnosed Date Resolved Date Old [place] (myocardial infarction) 03/01/2023 03/01/2023 Atherosclerosis of [place] ronary artery without angina pectoris 02/08/2022 [...] malnutrition 09/28/2018 09/23/2021 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/2021 GRAIN THRESHER 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 02/06/2017 05/02/2018 GRAIN THRESHER 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 02/06/2017 07/09/2019 Iron deficiency anemia 06/28/201109/20 Overview: ICD-10 update of inactive term Iron deficiency anemia 06/28/201109/20 Overview: ICD-10 update of inactive term Iron deficiency anemia pat paulino to inadequate dietary iron intake 09/26/2008 3 Infected postoperative seroma 06/02/2003 09/20/2012 [facility]/200311/2022 documented as of this encounter (statuses as of 08/16/2023) Immunizations Name Administration Dates Next Due COVID-19 mRNA, LNP-s, No Pre serve, 2-Dose Series (ZapHour) 02/16/2021,11/25/2020,11/01/2020 COVID-19, MRNA-LNP, 23-24, P F, 30 MCG/0.3 mL, 12 YRS AND ABOVE, IM (PFIZER-Comirnaty) 04/10/2023 Covid-19, Mrna, Lnp-s, Pf, B ivalent, 30 Mcg, IM, 12 yrs and above (Pfizer) 04/12/2022 Pneumococcal Conjugate Vacci ne, 20-valent (Msrbmaw24) 12/10/2021 Pneumococcal Polysaccharide PPV23 (Pneumovax) 07/21/2009 Seasonal [...] encounter Progress Notes * Mayra Crook, [facility] - 08/16/2023 12:05 PM EST [facility] Adult TPN Documentation Patient Phone Numbers mobile [phone] Results for orders placed or performed during [...] orders placed or performed in visit on 08/14/23 COMPREHENSIVE METABOLIC PANEL Result Value Ref Range BUN 33 (H) [...] g/dL ALT 24 10 - 35 U/L Lab Results Component Value Date/Time MAGNESIUM - [facility] 1.7 08/14/2023 11:28 AM MAGNESIUM - [facility] 1.7 05/10/2019 02:25 PM MAGNESIUM URINE 24HR 107 05/22/2013 11:39 AM MAGNESIUM-OUTSIDE LAB 1.3 (L) 11/30/2020 04:26 AM Lab Results Component Value Date/Time PHOSPHORUS - [facility] 4.0 08/14/2023 11:29 AM PHOSPHORUS - [facility] 3.9 05/10/2019 02:25 PM PHOSPHORUS, 24 HOUR URINE - [facility] 0.402 05/22/2013 11:39 AM PHOSPHORUS-OUTSIDE LAB 4.3 11/30/2020 12:00 AM PHOSPHORUS-OUTSIDE LAB 4.3 11/28/2020 09:46 AM Lab Results Component Value Date/Time CALCIUM - [facility] 8.3 (L) 08/14/2023 11:29 AM CALCIUM - [facility] 8.5 07/16/2020 12:54 PM CALCIUM, 24 HOUR URINE - [facility] 0.065 05/10/2019 02:25 PM CALCIUM, IONIZED - [facility] 1.29 08/14/2023 11:28 AM CALCIUM, IONIZED - [facility] 1.33 (H) 07/21/2009 11:31 AM Patient weight (kg):35.4 kg 08/15/23 family medicine appointment Amino acids (gm): 85 Dextrose (gm): 250 [...] (mg): - Other: - Client is a 57 yo female on TPN for severe malnutrition. Nurse could not get in touch with client today. Asked several times for client to return her CADD pump so the pump history can be reviewed. A postage paid UPS-return box was sent with a previous delivery for her to return the pump. She statedthat she uses TPN every night during her last family medicine appointment on 08/15/23. She also stated during that appointment that she is agreeable to a possible inpatient stay to try to optimize her nutrition. Reviewed labs from 08/14/23. Sent TPN today through 08/23/23. Next (weekly) labs 08/21/23: (CMP, Magnesium, Phosphorus,and Ionized Calcium). Next nutrition appointment: TBD Mayra Crook RPh 08/16/2023 12:06 PM documented in this encounter Plan of Treatment Upcoming Encounters Date Type Department Care Team (Late st Contact Info) Description 08/21/2023 10:45 AM EST Immunization/Injection Hematology/Oncology Treatment, [place] [address] [place] [phone] Nurse, Med [address] [place] [address] 08/25/2023 10:15 AM EST Telemedicine Urology [place] [address] [place] [address] [place] [address] Christopher Almonte MD [address] [place] [address] [place] [address] 7, Telemed [facility] Rm [facility] [address] 09/01/2023 5:30 PM EST Telemedicine Psychiatry, [place] [address] [place] [address] Alexis Serna MD [address] [place] [address] 09/02/2023 2:30 PM EST Imaging Radiology [address], [address] [address] 09/02/2023 3:15 PM EST Imaging Radiology [address], [address] [address] 09/12/2023 3:20 PM EDT Office Visit Nephrology [address] [place] [address] Eliza Boles MD [address] [place] [address] 09/26/2023 11:20 AM EDT Office Visit Family Medicine [address] [place] [phone] Evelyn Andrews MD [address] [place] [address] [place] [address] 10/02/2023 9:20 AM EDT Office Visit [facility]rology [facility] 200 [facility] [place], [place] [address] Aris Mohr MD 200 [facility] [place] [address] 10/17/2023 3:20 PM EDT Office Visit Gastroenterology, [facility] [address] [place] [address] Milind Yadav MD [address] [place] [address] Health Maintenance Due Date Last Done Comments [...] Additional history exists CKD HGB USE SMARTSET 48889 06/12/202406/12, 03/13/2023, 03/13/2023, Additional history exists CKD PHOS USE SMARTSET 24940 08/14/202407/27, 08/14/2023, 07/31/2023, Additional history exists DTaP,Tdap,and [...] this encounter Medical Devices Implanted Type Area Curatorial Specialist Device Identifier Shelf Expiration Date Model / Serial / Lot Stent Axios 20mm - [id number] Implanted:Qty: 1 on 01/04/2021 by Leyda Garcia MD at OR [facility] N/A: Stomach [employer] : ENDOSCOPY 11/20/2021 [id number] / / [id number] documented as of this encounter Advance Directives Documents on File Type Date Recorded Patient Maintenance Mechanic Telephone Expl anation POLST 01/03/2022 [place] [facility]-SUSTAINING TREATMENT Latest Code Status [...] Other - (no specific identity) Health Care Maintenance Mechanic Telephone (appointed verbally by patient or by statute hierarchy) Rowdy Kraus Health Care Maintenance Mechanic Telephone (appointed verbally by patient or by statute hierarchy) Care Teams Oven Baker Relationship Specialty Start Date End Date Evelyn Andrews MD [address] [place] [address] [place] [address] PCP - General Family Medicine 05/04/18 documented as of this encounter
--- OUTSIDE RECORDS SUMMARY | 2023-12-07 18:42 | External Medical Summary ---
Author Name Unknown Address Unknown Organization K01:[facility] - [address] [facility] [place]. [place] [address] Laboratory Report Ordering Provider Test Date Status ASHLEYTUYET HERRERAYonathan 08/14/2023 11:28:38 Final Observation Date Value Abnormality Reference (Units ) Status Calcium.ionized [Moles/volume] in Serum or Plasma by Ion-selective membrane electrode (ISE) 08/14/2023 11:28:38 1.29 1.13-1.32 (mmol/L) Final This test was developed and its performance characteristics dtermined by [employer]. It has not been cleared or approved by the US Food and Drug Administration Performing Location [facility] - [address] [place] [address]
--- OUTSIDE RECORDS SUMMARY | 2023-12-07 18:42 | External Medical Summary ---
Author Name Unknown Address Unknown Organization K09:[facility] [place] [address] Laboratory Report Ordering Provider Test Date Status TONY RAMIREZ 08/14/2023 11:28:38 Final Observation Date Value Abnormality Reference (Units ) Status Magnesium 08/14/2023 11:28:38 1.7 1.5-2.6 (m g/dL) Final Performing Location [facility] [place] [address]
--- OUTSIDE RECORDS SUMMARY | 2023-12-07 18:42 | External Medical Summary ---
Author Name Unknown Address Unknown Organization K09:[facility] [place] [address] Laboratory Report Ordering Provider Test Date Status TAMY PATTERSON 08/14/2023 11:29:07 Final Observation Date Value Abnormality Reference (Units ) Status BUN 08/14/2023 11:29:07 33 Above high normal 6-20 (mg/dL) Final Creatinine 08/14/2023 11:29:07 1.2 Above high normal 0.5-1.0 (mg/dL) Final Glomerular filtration rate/1.73 sq M.predicted [Volume Rate/Area] in Serum, Plasma or Blood by Creatinine-based formula (CKD-EPI) 08/14/2023 11:29:07 54 Below low normal >=60 (mL/min) Final eGFR is calculated based on the CKD-EPI 2020 equation SODIUM 08/14/2023 11:29:07 137 135-146 (m mol/L) Final Potassium 08/14/2023 11:29:07 5.0 3.5-5.1 (m mol/L) Final Cl 08/14/2023 11:29:07 109 Above high normal 98 -107 (mmol/L) Final CO2 08/14/2023 11:29:07 18 Below low normal 22- 32 (mmol/L) Final Anion gap 08/14/2023 11:29:07 10 7-15 (mmol /L) Final Glucose 08/14/2023 11:29:07 87 70-120 (mg /dL) Final Calcium 08/14/2023 11:29:07 8.3 Below low normal 8.4 -10.2 (mg/dL) Final Albumin 08/14/2023 11:29:07 3.0 Below low normal 3.8 -5.0 (g/dL) Final Phosphate 08/14/2023 11:29:07 4.0 2.5-4.8 (m g/dL) Final Performing Location [facility] [place] [address]
--- OUTSIDE RECORDS SUMMARY | 2023-12-07 18:42 | External Medical Summary ---
Author Name Unknown Address Unknown Organization K09:[facility] [address] [place] [address] Laboratory Report Ordering Provider Test Date Status TONY RAMIREZ 08/14/2023 11:28:38 Final Observation Date Value Abnormality Reference (Units ) Status BUN 08/14/2023 11:28:38 33 Above high normal 6-20 (mg/dL) Final Creatinine 08/14/2023 11:28:38 1.2 Above high normal 0.5-1.0 (mg/dL) Final Glomerular filtration rate/1.73 sq M.predicted [Volume Rate/Area] in Serum, Plasma or Blood by Creatinine-based formula (CKD-EPI) 08/14/2023 11:28:38 54 Below low normal >=60 (mL/min) Final eGFR is calculated based on the CKD-EPI 2020 equation SODIUM 08/14/2023 11:28:38 137 135-146 (m mol/L) Final Potassium 08/14/2023 11:28:38 5.0 3.5-5.1 (m mol/L) Final Cl 08/14/2023 11:28:38 109 Above high normal 98 -107 (mmol/L) Final CO2 08/14/2023 11:28:38 19 Below low normal 22- 32 (mmol/L) Final Anion gap 08/14/2023 11:28:38 9 7-15 (mmol /L) Final Glucose 08/14/2023 11:28:38 87 70-120 (mg /dL) Final Albumin 08/14/2023 11:28:38 3.1 Below low normal 3.8 -5.0 (g/dL) Final AST (Aspartate aminotransferase) 08/14/2023 11:28:38 26 10-35 (U/L) Fin al Alk Phos 08/14/2023 11:28:38 89 35-130 (U/ L) Final Bilirubin, Total 08/14/2023 11:28:38 0.3 <=1 .2 (mg/dL) Final Calcium 08/14/2023 11:28:38 8.4 8.4-10.2 ( mg/dL) Final Protein 08/14/2023 11:28:38 5.3 Below low normal 6.0 -8.3 (g/dL) Final ALT (Alanine aminotransferase) 08/14/2023 11:28:38 24 10-35 (U/L) Matthew belle Performing Location [facility] [address] [place] [address]
--- OUTSIDE RECORDS SUMMARY | 2023-12-07 18:42 | External Medical Summary | Summary of Care ---
Author Name Unknown Organization [facility] Address [address] [place] [address] Phone [phone] Care Team Providers Care Debate Director Name Role Phone Evelyn Andrews MD Primary Care Prov ider Reason for Visit * Reason Comments Follow Up 9 wk return Encounter Details Date Type Department Care Team (Latest Contact Info) Description 08/15/2023 3:40 PM EST Office Visit Family Medicine [address] [address] Evelyn Andrews MD [address] [place] [address] [place] [address] Copper deficiency myeloneuropathy (HCC)*; Migraine variant; Nausea; At risk of decubitus ulcer; Severe protein-energy malnutrition (HCC); Hereditary and idiopathic peripheral neuropathy; Chronic kidney disease, stage 3a (HCC) Allergies Active Allergy Reactions Criticality Noted Date Comments Amoxicillin Edema airway High 01/22/2003 Oxybutynin 03/25/2023 Mouth ulcers Sulfa Antibiotics Edema airway High 08/15/2006 documented as of this encounter (statuses as of 08/15/2023) Medications Medication Sig Dispensed Refills Start Date End Date Status CYANOCOBALAMIN 1000 MCG/ML IJ SOLN one injection monthly 0 Active CALCITRIOL 0.25 MCG PO CAPS 1 CAPSULE BY MOUTH MONDAYS/Monday/Fridays 04/10/20 14 Active [facility] ACETAMINOPHEN EX [facility] 500 MG Tablet TAKE 1 CAPSULE BY MOUTH EVERY 4 HOURS 0 07/03/19 20 Active Oyster Shell Calcium 500 MG Oral Tablet Take 2 Tabs by mouth daily. 60 Tab 5 04/07/20 20 Active Estradiol 0.1 MG/GM Vaginal Cream (Estrace) Administer 1 g into the vagina in the morning. Apply periurethrally as directed.. 42.5 g 2 05/23/20 22 Active Additional Information Patient not taking.Reported on [...] morning. 30 Capsule 0 12/16/19 23 Active Vitamin D (Ergocalciferol) 1.25 MG (26425 UT) Oral Capsule (Drisdol)Indicatio ns:Diarrhea due to [...] on 08/15/2023 Mirtazapine 45 MG Oral Tablet (Remeron)Nerissatio ns:Recurrent major depressive disorder, in partial remission [...] 120 mL 0 06/28/19 24 Active Nystatin 150392 UNIT/GM External Cream APPLY TO AFFECTED AREA [...] NAUSEA. 90 Tablet 1 07/26/19 24 Active Diphenoxylate-Atro pine 2.5-0.025 MG Oral Tablet (Lomotil)Indicatio ns:Migraine variant TAKE ONE TABLET BY MOUTH 4 TIMES DAILY NEEDED FOR DAIRRHEA 60 Tablet 0 08/09/19 24 Active Ekahxzwqzu-AHQW-Vh ffeine 50-325-40 MG Oral Tablet (Fioricet)Indicati ons:Migraine [...] bedtime. 60 Capsule 5 08/15/19 24 Active Lidocaine 4 % External Patch [...] 25 Tablet 0 06/05/20 23 024 Discontinued Lbxekyoawk-MFNB-Fb ffeine 50-325-40 MG Oral Tablet (Fioricet)Indicati ons:Migraine variant TAKE ONE TABLET EVERY 6 HOURS NEEDED FOR PAIN 90 Tablet 1 07/14/19 24 024 Discontinued(Re fill) documented as of this encounter (statuses as of 08/15/2023) Active Problems Problem Noted Date Diagnosed Date [...] as of this encounter (statuses as of 08/15/2023) Resolved Problems Problem Noted Date Diagnosed Date Resolved Date Old IA (myocardial infarction) 03/01/2023 03/01/2023 Atherosclerosis of [place] co ronary artery without angina pectoris 02/08/2022 [...] malnutrition 09/28/2018 09/23/2021 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/2021 SOCIAL MEDIA COMMUNITY MANAGER 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 02/06/2017 05/02/2018 SOCIAL MEDIA COMMUNITY MANAGER 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 02/06/2017 07/09/2019 Iron deficiency anemia 06/28/201109/20 Overview: ICD-10 update of inactive term Iron deficiency anemia 06/28/201109/20 Overview: ICD-10 update of inactive term Iron deficiency anemia pat paulino to inadequate dietary iron intake 09/26/2008 3 Infected postoperative seroma 06/02/2003 09/20/2012 PANNICULITIS, UNSP SITE 05/14/2003 090 11/2022 documented as of this encounter (statuses as of 08/15/2023) Immunizations Name Administration Dates Next Due COVID-19 mRNA, LNP-s, No Pre serve, 2-Dose Series (angelMD) 02/16/2021,11/25/2020,11/01/2020 COVID-19, MRNA-LNP, 23-24, P F, 30 MCG/0.3 mL, 12 YRS AND ABOVE, IM (PFIZER-Comirnaty) 04/10/2023 Covid-19, Mrna, Lnp-s, Pf, B ivalent, 30 Mcg, IM, 12 yrs and above (Pfizer) 04/12/2022 Pneumococcal Conjugate Vacci ne, 20-valent ([id number]) 12/10/2021 Pneumococcal Polysaccharide PPV23 (Pneumovax) 07/21/2009 Seasonal [...] Sign Reading Time Taken Comments Blood Pressure 96/58 08/15/2023 3:24 PM EST Pulse 78 08/15/2023 3:24 PM EST Temperature 36.4 C (97.6 F) 08/15/2023 3:24 PM ES T Respiratory Rate - - Oxygen Saturation - - Inhaled Oxygen Concentration - - Weight 35.4 kg (78 lb) 08/15/2023 3:24 PM EST Height - - Body Mass Index 15.75 12/21/2022 11:21 AM EDT documented in this [...] * Obdulio Forbes, Evelyn Nugent MD - 08/15/2023 3:52 PM EST Subjective Chandrika Hogue is a 56 year old female. Chief Complaint Patient presents with Follow Up 9 wk return HPI: Here for close follow up severe depression and malnutrition. Depression. On mirtazepine, duloxetine and olanzapine. Working with psychology and psychiatry, Dr Serna. Feels frustrated with her health situation. States she does not want TPN; does not want to live with tubes. Nutrition. Has been on TPN since October 2022. Also eating daily. Working with GI/Nutrition. Not gaining weight; she believes she is receiving 5000kcal per day but not gaining weight. States she connectsto TPN every night even though she hates having to do it. States she ate 1.5 lbs shrimp and 2 bakedpotatoes for dinner last night. Admits is very weak and tired. /Renal. S/p right nephrectomy due to recurrent UTI and non-functioning kidney causing severe pain. Pain is resolved (had stones). Still incontinent. Follows with Urology and Nephro/ Myelopathy. Experiencing burning in her feet, pins and needles. H/o copper deficiency. Sees Dr Mohr. Stopped gabapentin as was not helping Preventive; Defers pap and mammo. PMH: Patient Active Problem List Diagnosis Code IRON DEF ANEMIA DIETARY D50.8 ADVANCE DIRECTIVE INFORMATION HYPERPARATHYROIDISM SECONDARY, NON-RENAL E21.1 Other vitamin B12 deficiency anemia D51.8 Intestinal postoperative nonabsorption K91.2 MEDICATION USE AGREEMENT [id number] Status post bariatric surgery Z98.84 Migraine variant G43.809 Chronic pain syndrome G89.4 Osteopenia of neck of femur M85.859 Severe protein-energy malnutrition (HCC) E43 Myelopathy (HCC) G95.9 Hereditary and idiopathic peripheral neuropathy G60.9 Chronic kidney disease, stage 3a ([facility]) N18.31 Cachexia (HCC) R64 Copper deficiency myeloneuropathy (HCC) E61.0, G63, G99.2 Encounter for adjustment and management of vascular access device Z45.2 Demyelinating disease of central nervous system (HCC) G37.9 Gastrostomy malfunction (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 30 Capsule 0 Vitamin D (Ergocalciferol) 1.25 MG (46036 UT) Oral Capsule (Drisdol) TAKE ONE CAPSULE BY MOUTH EVERY OTHER DAY 12 Capsule 6 DULoxetine HCl 60 MG Oral Capsule Delayed [...] DAILY NEEDED FOR MIGRAINE. 10 Tablet 5 guaiFENesin-Codeine 100-10 MG/5ML Oral Syrup (Robitussin AC) Take 5 mL by mouth every 4 hours as needed for Cough. 120 mL 0 Nystatin 556196 UNIT/GM External Cream APPLY TO AFFECTED AREA [...] DAILY ASNEEDED FOR DAIRRHEA 60 Tablet 0 Gsydcynkak-LIIR-Gqulbsrd 50-325-40 MG Oral Tablet (Fioricet) TAKE ONE TABLET EVERY 6 HOURS NEEDED FOR PAIN 90 Tablet 1 Promethazine HCl 25 MG Oral Tablet (Phenergan) Take 1 Tablet by mouth every 8 hours as needed for Nausea. 30 Tablet 3 Pregabalin 25 MG Oral Capsule (Lyrica) Take 1 Capsule by mouth in the morning and 1 Capsule before bedtime. 60 Capsule 5 Estradiol 0.1 MG/GM Vaginal Cream (Estrace) Administer 1 g into the vagina in the morning. Apply periurethrally as directed.. (Patient not taking: Reported on 08/15/2023) 42.5 g 2 Myrbetriq 25 MG Oral Tablet Extended Release 24 Hour (Mirabegron ER) Take 1 Tablet by mouth in the morning. (Patient not taking: Reported on 08/15/2023) 90 Tablet 3 Furosemide 20 MG Oral Tablet (Lasix) Take 1 Tablet by mouth in the morning. (Patient not taking: Reported on 08/15/2023) 7 Tablet 0 No current facility-administered medications for this visit. Review of patient's allergies indicates: Allergen Reactions Amoxicillin Edema airway Sulfa Antibiotics Edema airway Oxybutynin Mouth ulcers Objective BP 96/58 | Pulse 78 | Temp 36.4 C (97.6 F) (Tympanic) | Wt 35.4 kg (78 lb) | LMP 04/05/2007 | BMI 15.75 kg/m | BSA 1.21 m Physical Exam Constitutional: Appearance: She is ill-appearing. Cardiovascular: Rate and Rhythm: Normal rate and regular rhythm. Pulses: Normal pulses. Heart sounds: Normal heart sounds. Pulmonary: Effort: Pulmonary effort is normal. Breath sounds: Normal breath sounds. Abdominal: General: Abdomen is flat. Palpations: Abdomen is soft. Musculoskeletal: General: Deformity present. Comments: scoliosis Neurological: Mental Status: She is alert. ASSESSMENT/PLAN: Copper deficiency myeloneuropathy (HCC) (Primary) - COPPER, SERUM OR PLASMA; Future; Expected date: 08/15/2023 - Pregabalin 25 MG Oral Capsule (Lyrica); Take 1 Capsule by mouth in the morning and 1 Capsule before bedtime. Migraine variant - Ihajzcwmzs-ROHV-Tezmjbvp 50-325-40 MG Oral Tablet (Fioricet); TAKE ONE TABLET EVERY 6 HOURS NEEDED FOR PAIN Nausea - Promethazine HCl 25 MG Oral Tablet (Phenergan); Take 1 Tablet by mouth every 8 hours as needed for Nausea. At risk of decubitus ulcer - DURABLE MEDICAL EQUIPMENT Severe protein-energy malnutrition (HCC) Hereditary and idiopathic peripheral neuropathy - Pregabalin 25 MG Oral Capsule (Lyrica); Take 1 Capsule by mouth in the morning and 1 Capsule before bedtime. Chronic kidney disease, stage 3a (HCC) - ALBUMIN / CREATININE RATIO, URINE; Future; Expected date: 08/15/2023 Persistent depression but working with psychiatry and psychology. Denies suicidality. Chronic malnutrition, difficult to manage. Question her compliance with TPN but she states she uses it every night. Long conversation today about goals of care and how to cope with her chronic malabsorption and chronic pain. She is agreeable to possible inpatient stay to try to optimize her nutrition. Will reach out to Dr Wilkerson about this. Willing to trial Lyrica for peripheral neuropathy. Follow Up: Return in about 3 months (around 11/13/2023) for Return with Physician, Clinic Visit. | For: Return with Physician, Clinic Visit Evelyn Mobley MD 45 mins spent with patient > 50% counselling and coordinating care. documented in this encounter Nursing Notes * Serene Vargas LPN - 08/15/2023 3:23 PM EST Chief Complaint Patient presents with Follow Up 9 wk return States she feel karlee feet get painful/swollen and Lasix helps with the pain Coccyx pain. She is using cushions Petechiae areas Left ear clogged/crackling feeling Question b12 inj. Last inj 1,000 mcg, Intramuscular, ONCE On Mon12/09/22 at 1600 For 1 dose Order Details Ordered on: 12/09/22 Completed on: 12/09/22 Authorizing provider: Rodolfo Bo MD Administration Details 12/09/22 1646 Given The patient has been properly identified by confirmation of name and date of . documented in this encounter Plan of Treatment Upcoming Encounters Date Type Department Care Team (Late st Contact Info) Description 08/21/2023 10:45 AM EST Immunization/Injection Hematology/Oncology Treatment, [place] [address] [place] [address] Nurse, Med 4 [address] [facility] [place] [address] 08/25/2023 10:15 AM EST Telemedicine Urology [place] [address] [place] [id number] Christopher Almonte MD [address] [place] [address] [place] [address] 7, Telemed [facility] Urology Ex Rm [address] [place] [id number] 09/01/2023 5:30 PM EST Telemedicine Psychiatry, [place] [address] [place] [address] Alexis Serna MD [address] [place] [phone] 09/02/2023 2:30 PM EST Imaging Radiology [address] [facility] [place] [address] 09/02/2023 3:15 PM EST Imaging Radiology [address] [facility] [address] 09/12/2023 3:20 PM EDT Office Visit Nephrology [address] [place] [address] Eliza Boles MD 200 [place] [id number] 10/02/2023 9:20 AM EDT Office Visit Neurology [facility] [address] [facility] [place] [address] Aris Mohr MD [address] [facility] [place] [address] 10/17/2023 3:20 PM EDT Office Visit Gastroenterology, [facility] [address] [facility] [place] [address] Milind Yadav MD [address] [place] [id number] Scheduled Orders Name Type Priority Associated Diagnoses Orde r Schedule ALBUMIN / CREATININE RATIO, URINE Lab Routine Chronic kidney disease, stage 3a (HCC) Expected: 08/15/2023 (Approximate), Expires: 08/14/2024 COPPER, SERUM OR PLASMA Lab Routine Copper deficiency myeloneuropathy (HCC) Expected: 08/15/2023, Expires: 08/15/2024 Health Maintenance Due Date Last Done Comments HPV/Co-Test 1993 Cologuard 2008 Fecal Occult Blood Test 2008 Sigmoidoscopy 2008 Mammogram 08/18/2011 08/18/2010, 08/11/2009 Cervical Cancer Screening 09/27/2014 Pap Smear 09/27/2014 09/28/2011, /11/2010, 07/07/2010, Additional history exists Depression, Most Recent Score >= 10 (will fire each visit until score < 10) 05/23/2023 05/22/2023 Albumin/Creatinine Ratio 08/23/2023 08/23/2022, 08/25 Colonoscopy 12/11/2023 12/10/2013, 11/24, 01/15/2007 Colorectal Cancer Screening 12/11/2023 GFR 02/12/2024 08/14/2023, 07/27, 07/31/2023, Additional history exists CKD HGB USE SMARTSET 03889 06/12/202406/12, 03/13/2023, 03/13/2023, Additional history exists CKD PHOS USE SMARTSET 03152 08/14/202407/27, 08/14/2023, 07/31/2023, Additional history exists DTaP,Tdap,and [...] this encounter Medical Devices Implanted Type Area Solution Spec Device Identifier Shelf Expiration Date Model / Serial / Lot Stent Axios 20mm - [id number] Implanted:Qty: 1 on 01/04/2021 by Leyda Garcia MD at OR [facility] N/A: Stomach [employer] : ENDOSCOPY 11/20/2021 [id number] / / [id number] documented as of this encounter Visit Diagnoses Diagnosis Copper deficiency myeloneuropathy (HCC)- Primary Disorders of copper metabolism Migraine variant Variants of migraine, not elsewhere classified, without mention of intractable migraine without mention of status migrainosus Nausea Nausea alone At risk of decubitus ulcer Other specified conditions influencing health status Severe protein-energy malnutrition (HCC) Other severe protein-calorie malnutrition Hereditary and idiopathic peripheral neuropathy Unspecified hereditary and idiopathic peripheral neuropathy Chronic kidney disease, stage 3a (HCC) documented in this encounter Advance Directives Documents on File Type Date Recorded Patient Mainspring Torque Tester Expl anation POLST 01/03/[address] [facility] [...] Other - (no specific identity) Health Care Mainspring Torque Tester (appointed verbally by patient or by statute hierarchy) Rowdy Kraus Health Care Mainspring Torque Tester (appointed verbally by patient or by statute hierarchy) Care Teams Debate Director Relationship Specialty Start Date End Date Evelyn Andrews MD [address] [place] [address] [place] [address] PCP - General Family Medicine 05/04/18 documented as of this encounter"
--- OUTSIDE RECORDS SUMMARY | 2023-12-07 18:42 | External Medical Summary ---
Author Name Unknown Address Unknown Organization K09[facility] [place] [address] Laboratory Report Ordering Provider Test Date Status TONY RAMIREZ 08/14/2023 11:28:38 Final Observation Date Value Abnormality Reference (Units ) Status Phosphate 08/14/2023 11:28:38 4.1 2.5-4.8 (m g/dL) Final Performing Location [facility] [place] [address]
--- OUTSIDE RECORDS SUMMARY | 2023-12-07 18:42 | External Medical Summary | Summary of Care ---
Author Name Unknown Organization [facility] Address [address] [place] [address] Phone [phone] Care Team Providers Care Child Caregiver Private Home Name Role Phone Evelyn Andrews MD Primary Care Prov ider Reason for Visit * Reason Onset Date Comments Order Request 08/16/2023 Encounter Details Date Type Department Care Team (Late st Contact Info) Description 08/16/[address] [phone] Evelyn Andrews MD [address] [place] [address] [place] [address] Order Request Allergies Active Allergy Reactions [...] 3 Active Vitamin D (Ergocalciferol) 1.25 MG (46382 UT) Oral Capsule (Drisdol)Indications :Diarrhea due to [...] Cough. 120 mL 0 4 Active Nystatin 770586 UNIT/GM External Cream APPLY TO AFFECTED AREA [...] FOR DAIRRHEA 60 Tablet 0 4 Active Buyaruacvy-JNYW-Jaqu eine 50-325-40 MG Oral Tablet (Fioricet)Indication s:Migraine [...] VT (myocardial infarction) 03/01/2023 03/01/2023 Atherosclerosis of [place] co ronary artery without angina pectoris 02/08/2022 [...] malnutrition 09/28/2018 09/23/2021 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/2021 STOREKEEPER STEWARD 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 02/06/2017 05/02/2018 STOREKEEPER STEWARD 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 02/06/2017 07/09/2019 Iron deficiency anemia 06/28/201109/20 [...] mRNA, LNP-s, No Pre serve, 2-Dose Series (Shopcliq) 02/16/2021,11/25/2020,11/01/2020 COVID-19, MRNA-LNP, 23-24, P F, 30 MCG/0.3 mL, 12 YRS AND ABOVE, IM (PFIZER-Comirnaty) 04/10/2023 Covid-19, Mrna, Lnp-s, Pf, B ivalent, 30 Mcg, IM, 12 yrs and above (Pfizer) 04/12/2022 Pneumococcal Conjugate Vacci ne, 20-valent ([id number]) 12/10/2021 Pneumococcal Polysaccharide PPV23 (Pneumovax) 07/21/2009 Seasonal [...] AM EST Gel cushion order sent through [employer] documented in this encounter Plan of Treatment Upcoming Encounters Date Type Department Care Team (Late st Contact Info) Description 08/21/2023 10:45 AM EST Immunization/Injection Hematology/Oncology Treatment, [place] [address] [place] [phone] Nurse, Med [address] [place], [place] [address] 08/25/2023 10:15 AM EST Telemedicine Urology [place] [address] [place] [address] Christopher Almonte MD [address] [place] [address] 7, Telemed [facility] Ex Rm [facility] [place] [address] 09/01/2023 5:30 PM EST Telemedicine Psychiatry, [place] [address] [place] [address] Alexis Serna MD [address] [place] [phone] 09/02/2023 2:30 PM EST Imaging Radiology [facility], [place] 132 [facility], [place] [address] 09/02/2023 3:15 PM EST Imaging Radiology [address], [place] [facility] [address] 09/12/2023 3:20 PM EDT Office Visit Nephrology [address] [place] [address] Eliza Boles MD [address] [place], [place] [address] 10/02/2023 9:20 AM EDT Office Visit Neurology [facility] [place] [address] [place] [address] Aris Mohr MD [address] [place] [address] 10/17/2023 3:20 PM EDT Office Visit Gastroenterology, [facility] [address] [place] [address] Milind Yadav MD [address] [place] [address] Health Maintenance Due Date Last Done Comments [...] Additional history exists CKD HGB USE SMARTSET 73004 06/12/202406/12, 03/13/2023, 03/13/2023, Additional history exists CKD PHOS USE SMARTSET 87169 08/14/202407/27, 08/14/2023, 07/31/2023, Additional history exists DTaP,Tdap,and [...] this encounter Medical Devices Implanted Type Area Sales Agent Fire Insurance Device Identifier Shelf Expiration Date Model / Serial / Lot Stent Axios 20mm - [id number] Implanted:Qty: 1 on 01/04/2021 by Leyda Garcia MD at OR [facility] N/A: Stomach [employer] : ENDOSCOPY 11/20/2021 [id number] / / [id number] documented as of this encounter Advance Directives Documents on File Type Date Recorded Patient Rigger Helper Expl anation POLST 01/03/2022 [place] OR [facility] FOR [...] Other - (no specific identity) Health Care Rigger Helper (appointed verbally by patient or by statute hierarchy) Rowdy Hogue Sibling Health Care Rigger Helper (appointed verbally by patient or by statute hierarchy) Care Teams Child Caregiver Private Home Relationship Specialty Start Date End Date Evelyn Andrews MD [address] [place] [address] [place] [address] PCP - General Family Medicine 05/04/18 documented as of this encounter
--- OUTSIDE RECORDS SUMMARY | 2023-12-07 18:43 | External Medical Summary | Summary of Care ---
Author Name Unknown Organization [facility] Address [address] [place] [address] Phone [phone] Care Team Providers Care Organic Preparation Technician Name Role Phone Evelyn Andrews MD Primary Care Prov ider Encounter Details Date Type Department Care Team (Late st Contact Info) Description 2023 Telephone Hematology/Oncology Treatment, [place] [address] [place] [address] Boogie Ortiz MD 200 [facility] [place] [address] Allergies Active Allergy Reactions Criticality Noted Date Comments Amoxicillin Edema airway High 01/22/2003 Oxybutynin 03/25/2023 Mouth ulcers Sulfa Antibiotics Edema airway High 08/15/2006 documented as of this encounter (statuses as of 2023) Medications Medication Sig Dispensed Refills Start Date [...] 12/15/2022 Active Vitamin D (Ergocalciferol) 1.25 MG (41640 UT) Oral Capsule (Drisdol)Indication s:Diarrhea due to [...] Cough. 120 mL 0 06/28/2023 Active Nystatin 139942 UNIT/GM External Cream APPLY TO AFFECTED AREA TWICE A DAY 30 g 2 06/30/2023 Active Diphenoxylate-Atrop ine 2.5-0.025 MG Oral Tablet (Lomotil)Indication s:Migraine variant TAKE ONE TABLET BY MOUTH 4 TIMES DAILY NEEDED FOR DAIRRHEA 60 Tablet 0 07/05/2023 Active OLANZapine 5 MG Oral Tablet Disintegrating (zyPREXA zyDIS) Place 1 Tablet on tongue in the morning. 30 Tablet 5 07/04/2023 Active Ehnvkzwrfq-DHIU-Fnk feine 50-325-40 MG Oral Tablet (Fioricet)Indicatio ns:Migraine [...] as of this encounter (statuses as of 2023) Active Problems Problem Noted Date Diagnosed Date [...] as of this encounter (statuses as of 2023) Resolved Problems Problem Noted Date Diagnosed Date Resolved Date Old [place] (myocardial infarction) 03/01/2023 03/01/2023 Atherosclerosis of [place] co ronary artery without angina pectoris 02/08/2022 [...] malnutrition 09/28/2018 09/23/2021 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/2021 PAPER RULER 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 02/06/2017 05/02/2018 PAPER RULER 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 02/06/2017 07/09/2019 Iron deficiency anemia 06/28/201109/20 Overview: ICD-10 update of inactive term Iron deficiency anemia 06/28/201109/20 Overview: ICD-10 update of inactive term Iron deficiency anemia pat paulino to inadequate dietary iron intake 09/26/2008 3 Infected postoperative seroma 06/02/2003 09/20/2012 PANNICULITIS, [facility] SITE 05/14/200311/2022 documented as of this encounter (statuses as of 2023) Immunizations Name Administration Dates Next Due COVID-19 mRNA, LNP-s, No Pre serve, 2-Dose Series ([facility]) 02/16/2021,11/25/2020,11/01/2020 COVID-19, MRNA-LNP, 23-24, P F, 30 MCG/0.3 mL, 12 YRS AND ABOVE, IM ([facility]) 04/10/2023 Covid-19, Mrna, Lnp-s, Pf, B ivalent, 30 Mcg, IM, 12 yrs and above ([facility]) 04/12/2022 Pneumococcal Conjugate Vacci ne, 20-valent ([id number]) 12/10/2021 Pneumococcal Polysaccharide PPV23 (Pneumovax) 07/21/2009 Seasonal [...] encounter Miscellaneous Notes * Telephone Encounter - Sis Castle RN [...] Description 08/12/2023 8:00 AM EST Imaging Radiology [address], [address] [place] [address] 08/12/2023 8:45 AM EST Imaging Radiology [facility] 1st Floor, [place] [address] [place] [address] 08/14/2023 10:45 AM EST Immunization/Injection Hematology/Oncology Treatment, [place] [address] [place] [address] Nurse, Med [address] [facility] [place] [address] 08/14/2023 11:30 AM EST Telemedicine Psychiatry, [place] [address] [place] [address] Alexis Serna MD [address] [place] [phone] 08/15/2023 3:40 PM EST Office Visit Family Medicine [address] [phone] Evelyn Andrews MD [address] [place] [address] [place] [address] 08/21/2023 10:45 AM EST Immunization/Injection Hematology/Oncology Treatment, [place] 200 [facility], [place] [address] Nurse, Med [address] [facility] [place] [address] 08/25/2023 10:15 AM EST Telemedicine Urology Grace Martinez [address] [place] [address] Christopher Almonte MD [address] [place] [address] 7, Telemed [facility] Urology Ex [address] [place] [address] 09/12/2023 3:20 PM EDT Office Visit Nephrology [address] [place] [address] Eliza Boles MD [address] [facility] [place] [address] 10/02/2023 9:20 AM EDT Office Visit Neurology [facility] [address] [facility] [place] [address] Aris Mohr MD [address] [facility] [place] [address] 10/17/2023 3:20 PM EDT Office Visit Gastroenterology, [facility] [address] [address] Milind Yadav MD [address] [place] [address] Health Maintenance Due Date Last Done Comments [...] Additional history exists CKD HGB USE SMARTSET 35954 06/12/202406/12, 03/13/2023, 03/13/2023, Additional history exists CKD PHOS USE SMARTSET 06195 07/31/202410/2023, 07/24/2023, 06/20/2023, Additional history exists DTaP,Tdap,and [...] this encounter Medical Devices Implanted Type Area Tie Man Device Identifier Shelf Expiration Date Model / Serial / Lot Stent Axios 20mm - [id number] Implanted:Qty: 1 on 01/04/2021 by Leyda Garcia MD at OR [facility] N/A: Stomach [employer] : ENDOSCOPY 11/20/2021 [id number] / / [id number] documented as of this encounter Advance Directives Documents on File Type Date Recorded Patient Security Director Expl anation POLST 01/03/2022 [place] OR [facility] FOR LIFE-SUSTAINING TREATMENT Latest Code Status on [...] Other - (no specific identity) Health Care Security Director (appointed verbally by patient or by statute hierarchy) Rowdy Mykel Kraus Health Care Security Director (appointed verbally by patient or by statute hierarchy) Care Teams Organic Preparation Technician Relationship Specialty Start Date End Date Evelyn Andrews MD [address] [place] [address] [place] [phone] PCP - General Family Medicine 05/04/18 documented as of this encounter
--- OUTSIDE RECORDS SUMMARY | 2023-12-07 18:43 | External Medical Summary | Summary of Care ---
Author Name Unknown Organization [facility] Address [address] [place] [address] Phone [phone] Care Team Providers Care Battery Inspector Name Role Phone Evelyn Andrews MD Primary Care Prov ider Reason for Visit * Reason Onset Date Comments Appointment 07/12/2023 Encounter Details Date Type Department Care Team (Late st Contact Info) Description 07/12/2023 Telephone Nutrition & Weight Management, [place] [address] [place], [place] [phone] Vic Wilkerson, [address] [place], [place] [phone] Appointment Allergies Active Allergy Reactions Criticality Noted Date Comments Amoxicillin Edema airway High 01/22/2003 Oxybutynin 03/25/2023 Mouth ulcers Sulfa Antibiotics Edema airway High 08/15/2006 documented as of this encounter (statuses as of 07/26/2023) Medications Medication Sig Dispensed Refills Start Date [...] directed.. 42.5 g 2 05/23/20 22 Active Omeprazole 20 MG Oral Capsule Delayed Release (PriLOSEC) TAKE 1 CAPSULE BY MOUTH EVERY DAY IN THE MORNING 90 Capsule 5 07/11/19 23 Active Dicyclomine HCl 20 MG Oral Tablet (Bentyl)Indication s:Nausea and vomiting,Epigastri c pain TAKE 1 TABLET BY MOUTH IN THE AM, AT NOON, IN THE PM AND AT BEDTIME NEEDED FOR ABDOMINAL PAIN Strength: 20 mg 480 Tablet 1 09/29/19 23 Active Lidocaine 4 % External Patch (Aspercreme) Place 1 Patch every 12 hours topically on the skin in the morning - remove old patch first. Do not start before December 16, 2022. 30 Patch 0 12/17/19 23 Active Zinc Sulfate 220 (50 Zn) MG Oral Capsule Take 1 Capsule by mouth in the morning. 30 Capsule 0 12/16/19 23 Active Vitamin D (Ergocalciferol) 1.25 MG (52943 UT) Oral Capsule (Drisdol)Indicatio ns:Diarrhea due to [...] morning. 90 Tablet 3 04/03/20 23 Active Mirtazapine 45 MG Oral Tablet (Remeron)Indicatio ns:Recurrent major depressive disorder, in partial remission (HCC) Take 1 Tablet by mouth at bedtime. 30 Tablet 3 04/12/20 23 Active Promethazine HCl 25 MG Oral Tablet (Phenergan)Indicat ions:Nausea Take 1 Tablet by mouth every 8 hours as needed for Nausea. 30 Tablet 3 06/01/20 23 Active predniSONE 20 MG Oral Tablet (Deltasone) Take 80 mg for 2 days, 60 mg for 2 days, 40 mg for 2 days, 20 mg for 2 days then 10 mg for 2 days 25 Tablet 0 06/05/20 23 Active ALPRAZolam 0.25 MG Oral Tablet [...] morning. 7 Tablet 0 06/27/19 24 Active guaiFENesin-Codein e 100-10 MG/5ML Oral Syrup (Robitussin AC)Indications:COV ID-19 Take 5 mL by mouth every 4 hours as needed for Cough. 120 mL 0 06/28/19 24 Active Nystatin 242840 UNIT/GM External Cream APPLY TO AFFECTED AREA TWICE A DAY 30 g 2 06/30/19 24 Active Diphenoxylate-Atro pine 2.5-0.025 MG Oral Tablet (Lomotil)Indicatio ns:Migraine variant TAKE ONE TABLET BY MOUTH 4 TIMES DAILY NEEDED FOR DAIRRHEA 60 Tablet 0 07/05/19 24 Active OLANZapine 5 MG Oral Tablet Disintegrating (zyPREXA zyDIS) Place 1 Tablet on tongue in the morning. 30 Tablet 5 07/04/19 24 Active Ondansetron 4 MG Oral Tablet Disintegrating (Zofran)Indication s:Intractable vomiting with nausea Place 1 Tablet on tongue every 8 hours as needed for Nausea. 90 Tablet 1 04/25/20 23 024 Discontinued Ztgkhazjrn-RITQ-Br ffeine 50-325-40 MG Oral Tablet (Fioricet)Indicati ons:Migraine variant TAKE ONE TABLET EVERY 6 HOURS NEEDED FOR PAIN 90 Tablet 1 05/19/20 23 024 Discontinued(Re fill) documented as of this encounter (statuses as of 07/26/2023) Active Problems Problem Noted Date Diagnosed Date [...] as of this encounter (statuses as of 07/26/2023) Resolved Problems Problem Noted Date Diagnosed Date Resolved Date Old [place] (myocardial infarction) 03/01/2023 03/01/2023 Atherosclerosis of [place] co ronary artery without angina pectoris 02/08/2022 [...] malnutrition 09/28/2018 09/23/2021 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/2021 LITHOGRAPHIC PRINTING MACHINIST 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 02/06/2017 05/02/2018 LITHOGRAPHIC PRINTING MACHINIST 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 02/06/2017 07/09/2019 Iron deficiency anemia 06/28/201109/20 Overview: ICD-10 update of inactive term Iron deficiency anemia 06/28/201109/20 Overview: ICD-10 update of inactive term Iron deficiency anemia pat paulino to inadequate dietary iron intake 09/26/2008 3 Infected postoperative seroma 06/02/2003 09/20/2012 PANNICULITIS, [facility] SITE 05/14/200311/2022 documented as of this encounter (statuses as of 07/26/2023) Immunizations Name Administration Dates Next Due COVID-19 mRNA, LNP-s, No Pre serve, 2-Dose Series ([employer]) 02/16/2021,11/25/2020,11/01/2020 COVID-19, MRNA-LNP, 23-24, P F, 30 MCG/0.3 mL, 12 YRS AND ABOVE, IM ([facility]) 04/10/2023 Covid-19, Mrna, Lnp-s, Pf, B ivalent, 30 Mcg, IM, 12 yrs and above ([facility]) 04/12/2022 Pneumococcal Conjugate Vacci ne, 20-valent ([id number]) 12/10/2021 Pneumococcal Polysaccharide PPV23 (Pneumovax) 07/21/2009 Seasonal [...] encounter Miscellaneous Notes * Telephone Encounter - Magdalena Zabala OSA - 07/26/2023 3:43 PM EST Please contact pt to schedule with Vic Wilkerson as GULSHAN Durán 07/26/2023 3:43 PM * Telephone Encounter - Magdalena Zabala OSA - 07/12/2023 3:12 PM EST Lmm for pt to call back to schedule: Return in about 4 weeks (around 08/08/2023). GULSHAN Coronado 07/12/2023 3:12 PM documented in this encounter Plan of Treatment Upcoming Encounters Date Type Department Care Team (Late st Contact Info) Description 07/31/2023 10:45 AM EST Immunization/Injection Hematology/Oncology Treatment, [place] [address] [place] [address] Nurse, Med [address] [place] [address] 07/31/2023 1:30 PM EST Imaging Radiology [address], [place] [address] [place] [address] 08/12/2023 8:00 AM EST Imaging Radiology [address], [address] [address] 08/12/2023 8:45 AM EST Imaging Radiology [address], [address] [address] 08/14/2023 11:30 AM EST Telemedicine Psychiatry, [place] [address] [place] [address] Alexis Serna MD [address] [place] [address] 08/15/2023 3:40 PM EST Office Visit Family Medicine [address] [place] [phone] Evelyn Andrews MD [address] [place] [address] [place] [address] 08/25/2023 10:15 AM EST Telemedicine Urology Grace Martinez [address] [place] [address] [place] [address] Christopher Almonte MD [address] [place] [address] 7, Telemed [facility] Urology Ex Rm [address] [place] [address] 09/12/2023 3:20 PM EDT Office Visit Nephrology [address] [place] [address] Eliza Boles MD 200 [facility] [place] [address] 10/02/2023 9:20 AM EDT Office Visit Neurology [facility] 200 [facility] [place] [address] Aris Mohr MD 200 [facility] [place] [address] 10/17/2023 3:20 PM EDT Office Visit Gastroenterology, [facility] [address] [place] [address] Milind Yadav MD 132 [facility] [place] [address] Health Maintenance Due Date Last Done Comments Hepatitis B (1 of 3 - 3-dose series) 1963 HPV/Co-Test 1993 Cologuard 2008 Fecal Occult Blood Test 2008 Sigmoidoscopy 2008 Mammogram 08/18/2011 08/18/2010, 08/11/2009 Cervical Cancer Screening 09/27/2014 Pap Smear 09/27/2014 09/28/2011, 07/0 11/2010, 07/07/2010, Additional history exists Depression, Most Recent Score >= 10 (will fire each visit until score < 10) 05/23/2023 05/22/2023 Albumin/Creatinine Ratio 08/23/2023 08/23/2022, 08/25 Colonoscopy 12/11/2023 12/10/2013, 11/24, 01/15/2007 Colorectal Cancer Screening 12/11/2023 GFR 01/22/2024 07/24/2023, 05/27, 06/12/2023, Additional history exists CKD HGB USE SMARTSET 11173 06/12/202406/12, 03/13/2023, 03/13/2023, Additional history exists CKD PHOS USE SMARTSET 18322 07/24/202406/27, 06/20/2023, 06/12/2023, Additional history exists DTaP,Tdap,and Td Vaccines (2 [...] this encounter Medical Devices Implanted Type Area Crumb Packer Device Identifier Shelf Expiration Date Model / Serial / Lot Stent Axios 20mm - [id number] Implanted:Qty: 1 on 01/04/2021 by Leyda Garcia MD at OR [facility] N/A: Stomach [employer] : ENDOSCOPY 11/20/2021 [id number] / / [id number] documented as of this encounter Advance Directives Documents on File Type Date Recorded Patient Front End Specialist Expl anation POLST 01/03/2022 [place] OR [facility] FOR LIFE-SUSTAINING [...] Other - (no specific identity) Health Care Front End Specialist (appointed verbally by patient or by statute hierarchy) Rowdybrady Kraus Health Care Front End Specialist (appointed verbally by patient or by statute hierarchy) Care Teams Battery Inspector Relationship Specialty Start Date End Date Evelyn Andrews MD [address] [place] [address] [place] [address] PCP - General Family Medicine 05/04/18 documented as of this encounter
--- OUTSIDE RECORDS SUMMARY | 2023-12-07 18:43 | External Medical Summary ---
Author Name Unknown Address Unknown Organization [facility] [place] [address] Laboratory Report Ordering Provider Test Date Status TONY RAMIREZ 07/31/2023 11:43:50 Final Observation Date Value Abnormality Reference (Units ) Status BUN 07/31/2023 11:43:50 28 Above high normal 6-20 (mg/dL) Final Creatinine 07/31/2023 11:43:50 1.2 Above high normal 0.5-1.0 (mg/dL) Final Glomerular filtration rate/1.73 sq M.predicted [Volume Rate/Area] in Serum, Plasma or Blood by Creatinine-based formula (CKD-EPI) 07/31/2023 11:43:50 51 Below low normal >=60 (mL/min) Final eGFR is calculated based on the CKD-EPI 2020 equation SODIUM 07/31/2023 11:43:50 142 135-146 (m mol/L) Final Potassium 07/31/2023 11:43:50 3.8 3.5-5.1 (m mol/L) Final Cl 07/31/2023 11:43:50 114 Above high normal 98 -107 (mmol/L) Final CO2 07/31/2023 11:43:50 18 Below low normal 22- 32 (mmol/L) Final Anion gap 07/31/2023 11:43:50 10 7-15 (mmol /L) Final Glucose 07/31/2023 11:43:50 101 70-120 (mg /dL) Final Albumin 07/31/2023 11:43:50 2.8 Below low normal 3.8 -5.0 (g/dL) Final AST (Aspartate aminotransferase) 07/31/2023 11:43:50 34 10-35 (U/L) Fin al Alk Phos 07/31/2023 11:43:50 107 35-130 (U/ L) Final Bilirubin, Total 07/31/2023 11:43:50 0.3 <=1 .2 (mg/dL) Final Calcium 07/31/2023 11:43:50 7.8 Below low normal 8.4 -10.2 (mg/dL) Final Protein 07/31/2023 11:43:50 4.9 Below low normal 6.0 -8.3 (g/dL) Final ALT (Alanine aminotransferase) 07/31/2023 11:43:50 25 10-35 (U/L) Matthew belle Performing Location [facility] [place] [address]
--- OUTSIDE RECORDS SUMMARY | 2023-12-07 18:43 | External Medical Summary | Summary of Care ---
Author Name Unknown Organization [facility] Address [address] [place] [address] Phone [phone] Care Team Providers Care Display Carver Name Role Phone Evelyn Andrews MD Primary Care Prov ider Encounter Details Date Type Department Care Team (Late st Contact Info) Description 2023 Telephone Hematology/Oncology Treatment, [place] [address] [place] [address] Boogie Ortiz MD 200 [facility] [place] [address] Allergies Active Allergy Reactions Criticality Noted Date [...] 12/15/2022 Active Vitamin D (Ergocalciferol) 1.25 MG (85908 UT) Oral Capsule (Drisdol)Indication s:Diarrhea due to [...] Cough. 120 mL 0 06/28/2023 Active Nystatin 214508 UNIT/GM External Cream APPLY TO AFFECTED AREA TWICE A DAY 30 g 2 06/30/2023 Active Diphenoxylate-Atrop ine 2.5-0.025 MG Oral Tablet (Lomotil)Indication s:Migraine variant TAKE ONE TABLET BY MOUTH 4 TIMES DAILY NEEDED FOR DAIRRHEA 60 Tablet 0 07/05/2023 Active OLANZapine 5 MG Oral Tablet Disintegrating (zyPREXA zyDIS) Place 1 Tablet on tongue in the morning. 30 Tablet 5 07/04/2023 Active Sbclheawpb-AUHO-Ccg feine 50-325-40 MG Oral Tablet (Fioricet)Indicatio ns:Migraine [...] Noted Date Diagnosed Date Resolved Date Old [place] (myocardial infarction) 03/01/2023 03/01/2023 Atherosclerosis of [place] co ronary artery without angina pectoris 02/08/2022 [...] malnutrition 09/28/2018 09/23/2021 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/2021 BOOKMOBILE LIBRARIAN 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 02/06/2017 05/02/2018 BOOKMOBILE LIBRARIAN 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 02/06/2017 07/09/2019 Iron deficiency anemia 06/28/201109/20 Overview: ICD-10 update of inactive term Iron deficiency anemia 06/28/201109/20 Overview: ICD-10 update of inactive term Iron deficiency anemia pat paulino to inadequate dietary iron intake 09/26/2008 3 Infected postoperative seroma 06/02/2003 09/20/2012 PANNICULITIS, [facility] SITE 05/14/200311/2022 documented as of this encounter (statuses as of 2023) Immunizations Name Administration Dates Next Due COVID-19 mRNA, LNP-s, No Pre serve, 2-Dose Series ([employer]) 02/16/2021,11/25/2020,11/01/2020 COVID-19, MRNA-LNP, 23-24, P F, 30 MCG/0.3 mL, 12 YRS AND ABOVE, IM ([facility]) 04/10/2023 Covid-19, Mrna, Lnp-s, Pf, B ivalent, 30 Mcg, IM, 12 yrs and above ([employer]) 04/12/2022 Pneumococcal Conjugate Vacci ne, 20-valent ([id number]) 12/10/2021 Pneumococcal Polysaccharide PPV23 (Pneumovax) 07/21/2009 Seasonal [...] Description 08/12/2023 8:00 AM EST Imaging Radiology [address] 132 [facility] [place] [address] 08/12/2023 8:45 AM EST Imaging Radiology [address] 132 [facility] [place] [address] 08/14/2023 10:45 AM EST Immunization/Injection Hematology/Oncology Treatment, [place] [address] [place] [address] Nurse, Med 4 200 [facility] [place] [address] 08/14/2023 11:30 AM EST Telemedicine Psychiatry, [place] [address] [place] [address] Alexis Serna MD [address] [place] [address] 08/15/2023 3:40 PM EST Office Visit Family Medicine [address] [phone] Evelyn Andrews MD [address] [place] [address] 08/21/2023 10:45 AM EST Immunization/Injection Hematology/Oncology Treatment, [place] [address] [facility] [facility] [address] Nurse, Med 4 200 [facility] [place] [address] 08/25/2023 10:15 AM EST Telemedicine Urology Grace Martinez [address] [place] [address] Christopher Almonte MD [address] [place] [address] 7, Telemed [facility] Urology Ex Rm [address] [place] [address] 09/12/2023 3:20 PM EDT Office Visit Nephrology [address] [place] [address] Eliza Boles MD 200 [facility] [place] [address] 10/02/2023 9:20 AM EDT Office Visit Neurology [facility] 200 [facility] [place] [address] Aris Mohr MD 200 [facility] [place] [address] 10/17/2023 3:20 PM EDT Office Visit Gastroenterology, [facility] [address] [place] [address] Milind Yadav MD [address] [place] [address] Health Maintenance Due Date Last Done Comments [...] Additional history exists CKD HGB USE SMARTSET 96469 06/12/202406/12, 03/13/2023, 03/13/2023, Additional history exists CKD PHOS USE SMARTSET 37541 07/31/2024 02/0 10/2023, 07/24/2023, 06/20/2023, Additional history exists DTaP,Tdap,and Td [...] this encounter Medical Devices Implanted Type Area Dry Boss Device Identifier Shelf Expiration Date Model / Serial / Lot Stent [employer] 20mm - [id number] Implanted:Qty: 1 on 01/04/2021 by Leyda Garcia MD at OR [facility] N/A: Stomach [employer] : ENDOSCOPY 11/20/2021 [id number] / / [id number] documented as of this encounter Advance Directives Documents on File Type Date Recorded Patient Massotherapist Expl anation POLST 01/03/2022 [place] OR [facility] FOR LIFE-SUSTAINING TREATMENT [...] Other - (no specific identity) Health Care Massotherapist (appointed verbally by patient or by statute hierarchy) Rowdy Kraus Health Care Massotherapist (appointed verbally by patient or by statute hierarchy) Care Teams Display Carver Relationship Specialty Start Date End Date Evelyn Andrews MD [address] [place] [address] [place] [phone] PCP - General Family Medicine 05/04/18 documented as of this encounter
--- OUTSIDE RECORDS SUMMARY | 2023-12-07 18:43 | External Medical Summary ---
Author Name Unknown Address Unknown Organization [facility] [place] [address] Laboratory Report Ordering Provider Test Date Status TONY RAMIREZ 07/31/2023 11:43:50 Final Observation Date Value Abnormality Reference (Units ) Status Phosphate 07/31/2023 11:43:50 2.4 Below low normal 2.5 -4.8 (mg/dL) Final Performing Location [facility] [address]
--- OUTSIDE RECORDS SUMMARY | 2023-12-07 18:43 | External Medical Summary | Summary of Care ---
Author Name Unknown Organization [facility] Address [address] [place] [address] Phone [phone] Care Team Providers Care Business Process Specialist Name Role Phone Evelyn Andrews MD Primary Care Prov ider Reason for Visit * Reason Comments Medication Management Encounter Details Date Type Department Care Team (Late st Contact Info) Description 07/27/2023 Documentation Home Infusion, [place] [address] [place] [address] [phone] Allergies Active Allergy Reactions Criticality Noted Date Comments Amoxicillin Edema airway High 01/22/2003 Oxybutynin 03/25/2023 Mouth ulcers Sulfa Antibiotics Edema airway High 08/15/2006 documented as of this encounter (statuses as of 07/27/2023) Medications Medication Sig Dispensed Refills Start Date [...] 12/15/2022 Active Vitamin D (Ergocalciferol) 1.25 MG (04615 UT) Oral Capsule (Drisdol)Indication s:Diarrhea due to [...] Cough. 120 mL 0 06/28/2023 Active Nystatin 504728 UNIT/GM External Cream APPLY TO AFFECTED AREA TWICE A DAY 30 g 2 06/30/2023 Active Diphenoxylate-Atrop ine 2.5-0.025 MG Oral Tablet (Lomotil)Indication s:Migraine variant TAKE ONE TABLET BY MOUTH 4 TIMES DAILY NEEDED FOR DAIRRHEA 60 Tablet 0 07/05/2023 Active OLANZapine 5 MG Oral Tablet Disintegrating (zyPREXA zyDIS) Place 1 Tablet on tongue in the morning. 30 Tablet 5 07/04/2023 Active Azpqnpyvxl-MGET-Gpy feine 50-325-40 MG Oral Tablet (Fioricet)Indicatio ns:Migraine [...] as of this encounter (statuses as of 07/27/2023) Active Problems Problem Noted Date Diagnosed Date [...] as of this encounter (statuses as of 07/27/2023) Resolved Problems Problem Noted Date Diagnosed Date Resolved Date Old [place] (myocardial infarction) 03/01/2023 03/01/2023 Atherosclerosis of jackson co ronary artery without angina pectoris 02/08/2022 [...] malnutrition 09/28/2018 09/23/2021 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/2021 INTERACTIVE PROJECT MANAGER 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 02/06/2017 05/02/2018 INTERACTIVE PROJECT MANAGER 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 02/06/2017 07/09/2019 Iron deficiency anemia 06/28/201109/20 Overview: ICD-10 update of inactive term Iron deficiency anemia 06/28/201109/20 Overview: ICD-10 update of inactive term Iron deficiency anemia pat paulino to inadequate dietary iron intake 09/26/2008 3 Infected postoperative seroma 06/02/2003 09/20/2012 PANNICULITIS, UNSP SITE 05/14/200311/2022 documented as of this encounter (statuses as of 07/27/2023) Immunizations Name Administration Dates Next Due COVID-19 mRNA, LNP-s, No Pre serve, 2-Dose Series (Impact Driven) 02/16/2021,11/25/2020,11/01/2020 COVID-19, MRNA-LNP, 23-24, P F, 30 MCG/0.3 mL, 12 YRS AND ABOVE, IM (H2020-Comirnaty) 04/10/2023 Covid-19, Mrna, Lnp-s, Pf, B ivalent, 30 Mcg, IM, 12 yrs and above (Impact Driven) 04/12/2022 Pneumococcal Conjugate Vacci ne, 20-valent ([id number]) 12/10/2021 Pneumococcal Polysaccharide PPV23 (Pneumovax) 07/21/2009 Seasonal [...] this encounter Progress Notes * Mayra Crook, [facility] - 07/27/2023 10:47 AM EST [facility] Adult TPN Documentation Patient Phone Numbers mobile [phone] Results for orders placed or performed during [...] orders placed or performed in visit on 07/24/23 COMPREHENSIVE METABOLIC PANEL Result Value Ref Range [...] g/dL ALT 19 10 - 35 U/L Lab Results Component Value Date/Time MAGNESIUM - [facility] 1.5 07/24/2023 12:02 PM MAGNESIUM - [facility] 1.7 05/10/2019 02:25 PM MAGNESIUM URINE 24HR 107 05/22/2013 11:39 AM MAGNESIUM-OUTSIDE LAB 1.3 (L) 11/30/2020 04:26 AM Lab Results Component Value Date/Time PHOSPHORUS - [facility] 2.8 07/24/2023 12:02 PM PHOSPHORUS - [facility] 3.9 05/10/2019 02:25 PM PHOSPHORUS, 24 HOUR URINE - [facility] 0.402 05/22/2013 11:39 AM PHOSPHORUS-OUTSIDE LAB 4.3 11/30/2020 12:00 AM PHOSPHORUS-OUTSIDE LAB 4.3 11/28/2020 09:46 AM Lab Results Component Value Date/Time CALCIUM - [facility] 8.0 (L) 07/24/2023 12:02 PM CALCIUM - [facility] 8.5 07/16/2020 12:54 PM CALCIUM, 24 HOUR URINE - [facility] 0.065 05/10/2019 02:25 PM CALCIUM, IONIZED - [facility] 1.16 07/24/2023 12:02 PM CALCIUM, IONIZED - [facility] 1.33 (H) 07/21/2009 11:31 AM Patient weight (kg):32.5 kg Amino acids (gm): 85 Dextrose (gm): 250 [...] yo female on TPN for severe malnutrition. Reviewed labs from 07/24/22. No changes atthis time. Will deliver 07/26/23 to cover through 08/02/23. Next weekly labs 07/27/23: (CMP, Magnesium, Phosphorus,and Ionized Calcium). Still waiting for CADD pump from 06/28/23 to be returned and pump historyto be reviewed. Next nutrition appointment: TBD Mayra Crook RPh 07/27/2023 10:47 AM documented in this encounter Plan of Treatment Upcoming Encounters Date Type Department Care Team (Late st Contact Info) Description 07/31/2023 10:45 AM EST Immunization/Injection Hematology/Oncology Treatment, [place] [address] [place] [address] Nurse, Med 4 200 [facility] [place] [address] 07/31/2023 1:30 PM EST Imaging Radiology [address], [address] [place] [address] 08/12/2023 8:00 AM EST Imaging Radiology [address], [address] [place] [address] 08/12/2023 8:45 AM EST Imaging Radiology [address], [address] [place] [address] 08/14/2023 11:30 AM EST Telemedicine Psychiatry, [place] [address] [place] [address] Alexis Serna MD [address] [place] [address] 08/15/2023 3:40 PM EST Office Visit Family Medicine [address] [place] [address] Evelyn Andrews MD [address] [place] [address] [place] [address] 08/25/2023 10:15 AM EST Telemedicine Urology Grace Martinez [address] [place] [address] [place] [address] Christopher Almonte MD [address] [place] [address] [place] [address] 7, [facility] [address] 09/12/2023 3:20 PM EDT Office Visit Nephrology [address] [place] [address] Eliza Boles MD 200 [facility] [place] [address] 10/02/2023 9:20 AM EDT Office Visit Neurology [facility] [address] [place] [address] Aris Mohr MD 200 [facility] [place] [address] 10/17/2023 3:20 PM EDT Office Visit Gastroenterology, [facility] [address] [place] [address] Milind Yadav MD [address] [place] [address] Health Maintenance Due Date Last Done Comments [...] Additional history exists CKD HGB USE SMARTSET 43104 06/12/202406/12, 03/13/2023, 03/13/2023, Additional history exists CKD PHOS USE SMARTSET 03623 07/24/202406/27, 06/20/2023, 06/12/2023, Additional history exists DTaP,Tdap,and [...] this encounter Medical Devices Implanted Type Area Computer Systems Administrator Device Identifier Shelf Expiration Date Model / Serial / Lot Stent Axios 20mm - [id number] Implanted:Qty: 1 on 01/04/2021 by Leyda Garcia MD at OR [facility] N/A: Stomach [employer] : ENDOSCOPY 11/20/2021 [id number] / / [id number] documented as of this encounter Advance Directives Documents on File Type Date Recorded Patient Traffic Line Painter Expl anation POLST 01/03/[address] [place] [address] [facility] [...] - (no specific identity) Health Care Traffic Line Painter (appointed verbally by patient or by statute hierarchy) Rowdy Kraus Health Care Traffic Line Painter (appointed verbally by patient or by statute hierarchy) Care Teams Business Process Specialist Relationship Specialty Start Date End Date Evelyn Andrews MD [address] [place] [address] [place] [address] PCP - General Family Medicine 05/04/18 documented as of this encounter
--- OUTSIDE RECORDS SUMMARY | 2023-12-07 18:43 | External Medical Summary | Summary of Care ---
Author Name Unknown Organization [facility] Address [address] [place] [address] Phone [phone] Care Team Providers Care Customer Supply Chain Analyst Name Role Phone Evelyn Andrews MD Primary Care Prov ider Reason for Visit * Reason Comments Procedure PICC dressing change and labs. Encounter Details Date Type Department Care Team (Latest Contact Info) Description 07/31/2023 10:45 AM EST Immunization/I njection Hematology/Oncology Treatment, [place] [address] [place] [address] Nurse, Med [address] [place] [address] Encounter for adjustment and management of vascular access device*; Severe protein-energy malnutrition (HCC) Allergies Active Allergy Reactions Criticality Noted Date Comments Amoxicillin Edema airway High 01/22/2003 Oxybutynin 03/25/2023 Mouth ulcers Sulfa Antibiotics Edema airway High 08/15/2006 documented as of this encounter (statuses as of 07/31/2023) Medications Medication Sig Dispensed Refills Start Date [...] 12/15/2022 Active Vitamin D (Ergocalciferol) 1.25 MG (10615 UT) Oral Capsule (Drisdol)Indication s:Diarrhea due to [...] Cough. 120 mL 0 06/28/2023 Active Nystatin 976395 UNIT/GM External Cream APPLY TO AFFECTED AREA TWICE A DAY 30 g 2 06/30/2023 Active Diphenoxylate-Atrop ine 2.5-0.025 MG Oral Tablet (Lomotil)Indication s:Migraine variant TAKE ONE TABLET BY MOUTH 4 TIMES DAILY NEEDED FOR DAIRRHEA 60 Tablet 0 07/05/2023 Active OLANZapine 5 MG Oral Tablet Disintegrating (zyPREXA zyDIS) Place 1 Tablet on tongue in the morning. 30 Tablet 5 07/04/2023 Active Hngwsfxhtj-HMJF-Hfk feine 50-325-40 MG Oral Tablet (Fioricet)Indicatio ns:Migraine [...] as of this encounter (statuses as of 07/31/2023) Active Problems Problem Noted Date Diagnosed Date [...] as of this encounter (statuses as of 07/31/2023) Resolved Problems Problem Noted Date Diagnosed Date Resolved Date Old UT (myocardial infarction) 03/01/2023 03/01/2023 Atherosclerosis of ewiiaapaayp co ronary artery without angina pectoris 02/08/2022 [...] malnutrition 09/28/2018 09/23/2021 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/2021 BUNDLER 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 02/06/2017 05/02/2018 BUNDLER 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 02/06/2017 07/09/2019 Iron deficiency anemia 06/28/201109/20 Overview: ICD-10 update of inactive term Iron deficiency anemia 06/28/201109/20 Overview: ICD-10 update of inactive term Iron deficiency anemia pat paulino to inadequate dietary iron intake 09/26/2008 3 Infected postoperative seroma 06/02/2003 09/20/2012 PANNICULITIS, UNSP SITE 05/14/200311/2022 documented as of this encounter (statuses as of 07/31/2023) Immunizations Name Administration Dates Next Due COVID-19 mRNA, LNP-s, No Pre serve, 2-Dose Series ([employer]) 02/16/2021,11/25/2020,11/01/2020 COVID-19, MRNA-LNP, 23-24, P F, 30 MCG/0.3 mL, 12 YRS AND ABOVE, IM ([facility]) 04/10/2023 Covid-19, Mrna, Lnp-s, Pf, B ivalent, 30 Mcg, IM, 12 yrs and above (Pfizer) 04/12/2022 Pneumococcal Conjugate Vacci ne, 20-valent (Flocsbb55) 12/10/2021 Pneumococcal Polysaccharide PPV23 (Pneumovax) 07/21/2009 Seasonal [...] Nursing Notes * Sis Castle RN - 07/31/2023 11:50 AM EST Chair 5. PICC dressing was changed and flushed with saline and labs were drawn and then lines were flushed with heparin without difficulty. Patient tolerated procedure well. Discharged in stable condition. documented in this encounter Plan of Treatment Upcoming Encounters Date Type Department Care Team (Latest Contact Info) Description 07/31/2023 1:30 PM EST Imaging Radiology [facility] 1st Floor, [place] [address] [place] [address] Kidney stone 2023 10:45 AM EST Immunization/Injection Hematology/Oncology Treatment, [place] 200 [place] [address] Nurse, Med [address] [facility] [place], [place] [address] 08/12/2023 8:00 AM EST Imaging Radiology [facility] 1st Floor, [place] [address] [place] [address] 08/12/2023 8:45 AM EST Imaging Radiology [facility] 1st Floor, [address] [place] [address] 08/14/2023 10:45 AM EST Immunization/Injection Hematology/Oncology Treatment, [place] 200 [facility], [place] [address] Nurse, Med [address] [place] [address] 08/14/2023 11:30 AM EST Telemedicine Psychiatry, [place] [address] [place] [address] Alexis Serna MD [address] [place] [address] 08/15/2023 3:40 PM EST Office Visit Family Medicine [address] [phone] Evelyn Andrews MD [address] [place] [address] [place] [address] 08/21/2023 10:45 AM EST Immunization/Injection Hematology/Oncology Treatment, [place] [address] [facility], [place] [address] Nurse, Med [address] [facility] [place] [address] 08/25/2023 10:15 AM EST Telemedicine Urology [facility] [address] [place] [address] [place] [address] Christopher Almonte MD [address] [place] [address] [place] [address] 7, Telemed [facility] Urology Ex Rm 132 [facility] [place] [address] 09/12/2023 3:20 PM EDT Office Visit Nephrology [address] [place] [phone] Eliza Boles MD 200 [facility] [place] [address] 10/02/2023 9:20 AM EDT Office Visit Neurology [facility] 200 [facility] [place] [address] Aris Mohr MD 200 [facility] [place] [address] 10/17/2023 3:20 PM EDT Office Visit Gastroenterology, [facility] 132 [facility] [place] [address] Milind Yadav MD 132 [facility] [address] Pending Results Name Type Priority Associated Diagnoses Date /Time COMPREHENSIVE METABOLIC PANEL Lab Routine Severe protein-energy malnutrition (HCC) 07/31/2023 11:43 AM EST MAGNESIUM Lab Routine Severe protein-energy malnutrition (HCC) 07/31/2023 11:43 AM EST PHOSPHORUS Lab Routine Severe protein-energy malnutrition (HCC) 07/31/2023 11:43 AM EST CALCIUM, IONIZED Lab Routine Severe protein-energy malnutrition (HCC) 07/31/2023 11:43 AM EST Health Maintenance Due Date Last [...] Additional history exists CKD HGB USE SMARTSET 02901 06/12/202406/12, 03/13/2023, 03/13/2023, Additional history exists CKD PHOS USE SMARTSET 95298 07/24/202406/27, 06/20/2023, 06/12/2023, Additional history exists DTaP,Tdap,and [...] this encounter Medical Devices Implanted Type Area Farm Truck Driver Device Identifier Shelf Expiration Date Model / Serial / Lot Stent Axios 20mm - [id number] Implanted:Qty: 1 on 01/04/2021 by Leyda Garcia MD at OR [facility] N/A: Stomach [employer] : ENDOSCOPY 11/20/2021 [id number] / / [id number] documented as of this encounter Visit Diagnoses Diagnosis Kidney stone Calculus of kidney Encounter for adjustment and management of vascular access device- Primary Severe protein-energy malnutrition (HCC) Other severe protein-calorie malnutrition documented in this encounter Administered Medications Inactive Administered Medications - up to 3 most recent administrations Medication Order MAR Action Action Date Dose Rate Site hEParin 100 UNIT/ML Lock Flush inj 500 Units 500 Units (5 mL), IV Lock, PRN Other, IV Flush, Starting on Mon07/31/23 at 1113, Until Mon07/31/23 at 1209, For 24 hours, Do not flush if lock, PICC, or central line not in place; IV infusing or unable to flush. Given 07/31/2023 11:34 AM EST 500 Units Given 07/31/2023 11:32 AM EST 500 Units sodium chloride 0.9 % flush central line 10 mL 10 mL, IV Push, PRN Other, IV Flush, Starting on Mon07/31/23 at 1113, Until Mon07/31/23 at 1209, For 24 hours, Do not flush if lock, PICC, or central line not in place; IV infusing or unable to flush. Given 07/31/2023 11:34 AM EST 10 mL Given 07/31/2023 11:32 AM EST 10 mL documented in this encounter Advance Directives Documents on File Type Date Recorded Patient Crown And Bridge Technician Expl anation POLST 01/03/2022 [place] OR [facility] FOR LIFE-SUSTAINING [...] Other - (no specific identity) Health Care Crown And Bridge Technician (appointed verbally by patient or by statute hierarchy) Rowdy Kraus Health Care Crown And Bridge Technician (appointed verbally by patient or by statute hierarchy) Care Teams Customer Supply Chain Analyst Relationship Specialty Start Date End Date Evelyn Andrews MD [address] [place] [address] [place] [address] PCP - General Family Medicine 05/04/18 documented as of this encounter
--- OUTSIDE RECORDS SUMMARY | 2023-12-07 18:43 | External Medical Summary | Summary of Care ---
Author Name Unknown Organization [facility] Address [address] [place] [address] Phone [phone] Care Team Providers Care Lavender Farm Worker Name Role Phone Evelyn Andrews MD Primary Care Prov ider Reason for Visit * Reason Comments Medication Management Encounter Details Date Type Department Care Team (Late st Contact Info) Description 08/02/2023 Documentation Home [facility], [place] [address] [place] [address] Mayra Cro[address] [phone] Allergies Active Allergy Reactions Criticality Noted Date Comments Amoxicillin Edema airway High 01/22/2003 Oxybutynin 03/25/2023 Mouth ulcers Sulfa Antibiotics Edema airway High 08/15/2006 documented as of this encounter (statuses as of 08/02/2023) Medications Medication Sig Dispensed Refills Start Date [...] 12/15/2022 Active Vitamin D (Ergocalciferol) 1.25 MG (24202 UT) Oral Capsule (Drisdol)Indication s:Diarrhea due to [...] Cough. 120 mL 0 06/28/2023 Active Nystatin 054034 UNIT/GM External Cream APPLY TO AFFECTED AREA TWICE A DAY 30 g 2 06/30/2023 Active Diphenoxylate-Atrop ine 2.5-0.025 MG Oral Tablet (Lomotil)Indication s:Migraine variant TAKE ONE TABLET BY MOUTH 4 TIMES DAILY NEEDED FOR DAIRRHEA 60 Tablet 0 07/05/2023 Active OLANZapine 5 MG Oral Tablet Disintegrating (zyPREXA zyDIS) Place 1 Tablet on tongue in the morning. 30 Tablet 5 07/04/2023 Active Giwqjrjkaw-PCBY-Mnw feine 50-325-40 MG Oral Tablet (Fioricet)Indicatio ns:Migraine [...] as of this encounter (statuses as of 08/02/2023) Active Problems Problem Noted Date Diagnosed Date [...] as of this encounter (statuses as of 08/02/2023) Resolved Problems Problem Noted Date Diagnosed Date Resolved Date Old [place] (myocardial infarction) 03/01/2023 03/01/2023 Atherosclerosis of squaxin co ronary artery without angina pectoris 02/08/2022 [...] malnutrition 09/28/2018 09/23/2021 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/2021 RESIDENTIAL AIR SEALING TECHNICIAN 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 02/06/2017 05/02/2018 RESIDENTIAL AIR SEALING TECHNICIAN 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 02/06/2017 07/09/2019 Iron deficiency anemia 06/28/201109/20 Overview: ICD-10 update of inactive term Iron deficiency anemia 06/28/201109/20 Overview: ICD-10 update of inactive term Iron deficiency anemia apt paulino to inadequate dietary iron intake 09/26/2008 3 Infected postoperative seroma 06/02/2003 09/20/2012 PANNICULITIS, UNSP SITE 05/14/200311/2022 documented as of this encounter (statuses as of 08/02/2023) Immunizations Name Administration Dates Next Due COVID-19 mRNA, LNP-s, No Pre serve, 2-Dose Series ([employer]) 02/16/2021,11/25/2020,11/01/2020 COVID-19, MRNA-LNP, 23-24, P F, 30 MCG/0.3 mL, 12 YRS AND ABOVE, IM ([employer]-Comirnaty) 04/10/2023 Covid-19, Mrna, Lnp-s, Pf, B ivalent, 30 Mcg, IM, 12 yrs and above ([employer]) 04/12/2022 Pneumococcal Conjugate Vacci ne, 20-valent (Vbetcac34) 12/10/2021 Pneumococcal Polysaccharide PPV23 (Pneumovax) 07/21/2009 Seasonal [...] this encounter Progress Notes * Mayra Crook, [facility] - 08/02/2023 12:08 PM EST [facility] Adult TPN Documentation Patient Phone Numbers mobile [phone] Results for orders placed or performed during [...] orders placed or performed in visit on 07/31/23 COMPREHENSIVE METABOLIC PANEL Result Value Ref Range BUN 28 (H) [...] g/dL ALT 25 10 - 35 U/L Lab Results Component Value Date/Time MAGNESIUM - [facility] 1.6 07/31/2023 11:43 AM MAGNESIUM - [facility] 1.7 05/10/2019 02:25 PM MAGNESIUM URINE 24HR 107 05/22/2013 11:39 AM MAGNESIUM-OUTSIDE LAB 1.3 (L) 11/30/2020 04:26 AM Lab Results Component Value Date/Time PHOSPHORUS - [facility] 2.4 (L) 07/31/2023 11:43 AM PHOSPHORUS - [facility] 3.9 05/10/2019 02:25 PM PHOSPHORUS, 24 HOUR URINE - [facility] 0.402 05/22/2013 11:39 AM PHOSPHORUS-OUTSIDE LAB 4.3 11/30/2020 12:00 AM PHOSPHORUS-OUTSIDE LAB 4.3 11/28/2020 09:46 AM Lab Results Component Value Date/Time CALCIUM - [facility] 7.8 (L) 07/31/2023 11:43 AM CALCIUM - [facility] 8.5 07/16/2020 12:54 PM CALCIUM, 24 HOUR URINE - [facility] 0.065 05/10/2019 02:25 PM CALCIUM, IONIZED - [facility] 1.21 07/31/2023 11:43 AM CALCIUM, IONIZED - [facility] 1.33 (H) 07/21/2009 11:31 AM Patient weight (kg):32.4 kg Amino acids (gm): 85 Dextrose (gm): [...] TPN for severe malnutrition. Reviewed labs from 07/31/23. Client does not want TPN delivered today since she does not want to take it on her birthday week. She will returnher CADD pump from the beginning of the month via [employer] so the pump history can be reviewed. Next weekly labs 08/07/23: (CMP, Magnesium, Phosphorus,and Ionized Calcium). Next nutrition appointment: TBD Mayra Crook RPh 08/02/2023 12:09 PM documented in this encounter Plan of Treatment Upcoming Encounters Date Type Department Care Team (Late st Contact Info) Description 2023 10:45 AM EST Immunization/Injection Hematology/Oncology Treatment, [place] [address] [place] [address] Nurse, Med 200 [facility] [address] 08/12/2023 8:00 AM EST Imaging Radiology [facility], [place] [facility] [address] 08/12/2023 8:45 AM EST Imaging Radiology [address], [address] [address] 08/14/2023 10:45 AM EST Immunization/Injection Hematology/Oncology Treatment, [place] [address] [place] [address] Nurse, Med 4 200 [facility] [place] [address] 08/14/2023 11:30 AM EST Telemedicine Psychiatry, [place] [address] [place] [address] Alexis Serna MD [address] [place] [phone] 08/15/2023 3:40 PM EST Office Visit Family Medicine [address] [phone] Evelyn Andrews MD [address] [place] [address] 08/21/2023 10:45 AM EST Immunization/Injection Hematology/Oncology Treatment, [place] 200 [place] [address] Nurse, Med 4 200 [facility] [place] [address] 08/25/2023 10:15 AM EST Telemedicine Urology Grace Martinez [address] [place] [address] [place] [address] Christopher Almonte MD [address] [place] [address] [place] [address] 7, Telemed [facility] Urology Ex Rm 132 [facility] [place] [address] 09/12/2023 3:20 PM EDT Office Visit Nephrology [address] [place] [address] Eliza Boles MD 200 [facility] [place] [address] 10/02/2023 9:20 AM EDT Office Visit Neurology [facility] 200 [facility] [place] [address] Aris Mohr MD 200 [facility] [place] [address] 10/17/2023 3:20 PM EDT Office Visit Gastroenterology, [facility] [address] [place] [address] Milind Yadav MD [address] [place] [address] Health Maintenance Due Date Last Done Comments [...] Additional history exists CKD HGB USE SMARTSET 12041 06/12/202406/12, 03/13/2023, 03/13/2023, Additional history exists CKD PHOS USE SMARTSET 31927 07/31/2024 02/0 10/2023, 07/24/2023, 06/20/2023, Additional history [...] this encounter Medical Devices Implanted Type Area Dog Daycare Provider Device Identifier Shelf Expiration Date Model / Serial / Lot Stent Axios 20mm - [id number] Implanted:Qty: 1 on 01/04/2021 by Leyda Garcia MD at OR [facility] N/A: Stomach [employer] : ENDOSCOPY 11/20/2021 [id number] / / [id number] documented as of this encounter Advance Directives Documents on File Type Date Recorded Patient Strategic Debriefing Specialist Expl anation POLST 01/03/2022 [place] OR [facility] FOR [...] Other - (no specific identity) Health Care Strategic Debriefing Specialist (appointed verbally by patient or by statute hierarchy) Rowdy Kraus Health Care Strategic Debriefing Specialist (appointed verbally by patient or by statute hierarchy) Care Teams Lavender Farm Worker Relationship Specialty Start Date End Date Evelyn Andrews MD [address] [place] [address] [place] [address] PCP - General Family Medicine 05/04/18 documented as of this encounter
--- OUTSIDE RECORDS SUMMARY | 2023-12-07 18:43 | External Medical Summary | Summary of Care ---
Author Name Unknown Organization [facility] Address [address] [place] [address] Phone [phone] Care Team Providers Care Edge Polisher Name Role Phone Evelyn Andrews MD Primary Care Prov ider Reason for Visit * Reason Comments eRx-Medication Refill Encounter Details Date Type Department Care Team (Late st Contact Info) Description 07/25/2023 Refill Gastroenterology, [facility] [address] [place] [address] Shirin Magaña CRNP [address] [place] [address] Allergies Active Allergy Reactions Criticality Noted Date [...] Tabs by mouth daily. 60 Tab 5 10/13/20 20 Active Estradiol 0.1 MG/GM Vaginal Cream (Estrace) Administer 1 g into the vagina in the morning. Apply periurethrally as directed.. 42.5 g 2 05/23/20 Active Dicyclomine HCl 20 MG Oral Tablet [...] December 16, 2022. 30 Patch 0 12/17/19 Active Zinc Sulfate 220 (50 Zn) MG Oral Capsule Take 1 Capsule by mouth in the morning. 30 Capsule 0 12/16/19 23 Active Vitamin D (Ergocalciferol) 1.25 MG (21790 UT) Oral Capsule (Drisdol)Indicatio ns:Diarrhea due to [...] 120 mL 0 06/28/19 24 Active Nystatin 924865 UNIT/GM External Cream APPLY TO AFFECTED AREA [...] morning. 30 Tablet 5 07/04/19 24 Active Jmkjtkhppm-UMIM-Pi ffeine 50-325-40 MG Oral Tablet (Fioricet)Indicati ons:Migraine variant TAKE ONE TABLET EVERY 6 HOURS NEEDED FOR PAIN 90 Tablet 1 07/14/19 24 Active Omeprazole 20 MG Oral Capsule Delayed Release (PriLOSEC) TAKE 1 CAPSULE BY MOUTH EVERY DAY IN THE MORNING 90 Capsule 4 07/26/19 24 Active Omeprazole 20 MG Oral Capsule Delayed Release (PriLOSEC) TAKE 1 CAPSULE BY MOUTH EVERY DAY IN THE MORNING 90 Capsule 5 07/11/19 23 024 Discontinued documented as of this encounter [...] NV (myocardial infarction) 03/01/2023 03/01/2023 Atherosclerosis of [place] ronary artery without angina pectoris 02/08/2022 [...] malnutrition 09/28/2018 09/23/2021 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/2021 CAR 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 02/06/2017 05/02/2018 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 02/06/2017 07/09/2019 Iron deficiency anemia 06/28/201109/20 [...] mRNA, LNP-s, No Pre serve, 2-Dose Series (Ferevo) 02/16/2021,11/25/2020,11/01/2020 COVID-19, MRNA-LNP, 23-24, P F, 30 MCG/0.3 mL, 12 YRS AND ABOVE, IM ([facility]) 04/10/2023 Covid-19, Mrna, Lnp-s, Pf, B ivalent, 30 Mcg, IM, 12 yrs and above (Pfizer) 04/12/2022 Pneumococcal Conjugate Vacci ne, 20-valent ([id number]) 12/10/2021 Pneumococcal Polysaccharide PPV23 (Pneumovax) 07/21/2009 Seasonal [...] encounter Miscellaneous Notes * Telephone Encounter - Shirin Magaña CRNP - 07/26/2023 4:09 PM ESTSigned Prescriptions: Disp Refills Omeprazole 20 MG Oral Capsule Delayed Rele*90 Cap*4 Sig: TAKE 1 CAPSULE BY MOUTH EVERY DAY IN THE MORNING Authorizing Provider: SHIRIN MAGAÑA * Telephone Encounter - Marina Salamanca [facility] - 07/26/2023 3:53 PM ESTPending Prescriptions: Disp Refills Omeprazole 20 MG Oral Capsule Delayed Rele*90 Cap*4 Sig: TAKE 1 CAPSULE BY MOUTH EVERY DAY IN THE MORNING * Telephone Encounter - Marina Salamanca RP - 07/26/2023 3:53 PM EST Per last OV, pt to rtc on prn basis only, please approve refills if appropriate Thanks, Marina Salamanca, PharmD Clinical Pharmacist [facility] [phone] 07/26/2023, 3:53 PM * Telephone Encounter - Denis Monahan - 07/25/2023 4:17 AM ESTPending Prescriptions: Disp Refills Omeprazole 20 MG Oral Capsule Delayed Rele*90 Cap*5 Sig: TAKE 1 CAPSULE BY MOUTH EVERY DAY IN THE MORNING * Telephone Encounter - Denis Monahan - 07/25/2023 4:15 AM EST Did you pend patient's preferred pharmacy and medication before forwarding?yes Pharmacy: [id number] [address] Pending Prescriptions: Disp Refills Omeprazole 20 MG Oral Capsule Delayed Rel*90 Cap*5 Sig: TAKE 1 CAPSULE BY MOUTH EVERY DAY IN THE MORNING Last Visit: 12/20/2021 (in office), 05/05/2021 (telemedicine) Next Visit: 10/17/2023 If no future appointments scheduled, and last appointment is greater than a year ago, please schedule patient for a follow-up appointment Last date the medication was ordered: 07/11/2022 Is this request for a controlled substance?No Urine Drug Screen:No results found. However, due to the size of the patient record, not all encounters were searched. Please check Results Review for a complete set of results. Patient Phone Numbers Labs: Lab Results Component Value Date/Time CREAT 1.6 (H) 07/24/2023 12:02 PM CREAT 0.98 11/30/2020 12:00 AM CREAT 1.0 07/16/2020 12:54 PM POTASSIUM 3.6 07/24/2023 12:02 PM POTASSIUM 3.6 11/30/2020 12:00 AM POTASSIUM 4.1 07/16/2020 12:54 PM TSH 2.11 12/07/2020 09:29 AM TSH 1.200 10/01/2020 12:00 AM TSH 0.80 01/17/2020 01:14 PM LDLCALC 60 10/24/2016 12:00 AM LDLCALC 78 07/21/2009 11:29 AM ALT 19 07/24/2023 12:02 PM ALT 42 (H) 07/16/2020 12:54 PM documented in this encounter Plan of Treatment Upcoming Encounters Date Type Department Care Team (Late st Contact Info) Description 07/31/2023 10:45 AM EST Immunization/Injection Hematology/Oncology Treatment, [place] [address] [place] [address] [facility] [address] 07/31/2023 1:30 PM EST Imaging Radiology [address], [place] [facility] [place] [address] 08/12/2023 8:00 AM EST Imaging Radiology [address], [address] [place], [place] [address] 08/12/2023 8:45 AM EST Imaging Radiology [address], [place] 132 [facility] [place], [place] [address] 08/14/2023 11:30 AM EST Telemedicine Psychiatry, [place] [address] [place] [address] Alexis Serna MD [address] [place] [address] 08/15/2023 3:40 PM EST Office Visit Family Medicine [address] [place] [address] Evelyn Andrews MD [address] [place] [address] [place] [address] 08/25/2023 10:15 AM EST Telemedicine Urology [place] [address] [place] [address] [place] [address] Christopher Almonte MD [address] [place] [address] [place] [address] 7, Telemed [facility] Urology Ex 132 [facility] [place], [place] [address] 09/12/2023 3:20 PM EDT Office Visit Nephrology [address] [place] [address] Eliza Boles MD [address] [place] [address] 10/02/2023 9:20 AM EDT Office Visit [facility] 200 [facility] [place] [address] Aris Mohr MD 200 [facility] [place] [address] 10/17/2023 3:20 PM EDT Office Visit Gastroenterology, [facility] [address] [place] [address] Milind Yadav MD [address] [place] [address] Health Maintenance Due Date Last Done Comments [...] Additional history exists CKD HGB USE SMARTSET 50456 06/12/202406/12, 03/13/2023, 03/13/2023, Additional history exists CKD PHOS USE SMARTSET 66866 07/24/202406/27, 06/20/2023, 06/12/2023, Additional history exists DTaP,Tdap,and [...] this encounter Medical Devices Implanted Type Area Filter Plant Operator Device Identifier Shelf Expiration Date Model / Serial / Lot Stent Axios 20mm - [id number] Implanted:Qty: 1 on 01/04/2021 by Leyda Garcia MD at OR [facility] N/A: Stomach [employer] : ENDOSCOPY 11/20/2021 [id number] / / [id number] documented as of this encounter Advance Directives Documents on File Type Date Recorded Patient Back Tufter Expl anation POLST 01/03/2022 [place] OR [facility] FOR LIFE-SUSTAINING TREATMENT [...] Other - (no specific identity) Health Care Back Tufter (appointed verbally by patient or by statute hierarchy) Rowdy Kraus Health Care Back Tufter (appointed verbally by patient or by statute hierarchy) Care Teams Edge Polisher Relationship Specialty Start Date End Date Evelyn Andrews MD [address] [place] [address] [place] [address] PCP - General Family Medicine 05/04/18 documented as of this encounter
--- OUTSIDE RECORDS SUMMARY | 2023-12-07 18:43 | External Medical Summary ---
Author Name Unknown Address Unknown Organization K01:[facility] [place] [address] [facility] [place]. [place] [address] Laboratory Report Ordering Provider Test Date Status ASHLEYCOREEN HarpANOOP 07/31/2023 11:43:50 Final Observation Date Value Abnormality Reference (Units ) Status Calcium.ionized [Moles/volume] in Serum or Plasma by Ion-selective membrane electrode (ISE) 07/31/2023 11:43:50 1.21 1.13-1.32 (mmol/L) Final This test was developed and its performance characteristics dtermined by [employer]. It has not been cleared or approved by the [place] Food and Drug Administration Performing Location [facility] [place] [address] [place] [address]
--- OUTSIDE RECORDS SUMMARY | 2023-12-07 18:43 | External Medical Summary ---
Author Name Unknown Address Unknown Organization K09:[facility] [place] [address] Laboratory Report Ordering Provider Test Date Status TONY RAMIREZ 07/31/2023 11:43:50 Final Observation Date Value Abnormality Reference (Units ) Status Magnesium 07/31/2023 11:43:50 1.6 1.5-2.6 (m g/dL) Final Performing Location [facility] [place] [address]
--- OUTSIDE RECORDS SUMMARY | 2023-12-07 18:43 | External Medical Summary | Summary of Care ---
Author Name Unknown Organization [facility] Address [address] [place] [address] Phone [phone] Care Team Providers Care Parts Processor Name Role Phone Evelyn Andrews MD Primary Care Prov ider Reason for Visit * Reason Onset Date Comments Appointment 07/12/2023 Encounter Details Date Type Department Care Team (Late st Contact Info) Description 07/12/2023 Telephone Nutrition & Weight Management, [place] [address] [place], [place] [phone] Vic Wilkerson, [address] [place], [place] [phone] Appointment Allergies Active Allergy Reactions Criticality Noted [...] 23 Active Vitamin D (Ergocalciferol) 1.25 MG (62686 UT) Oral Capsule (Drisdol)Indicatio ns:Diarrhea due to [...] 120 mL 0 06/28/19 24 Active Nystatin 761151 UNIT/GM External Cream APPLY TO AFFECTED AREA [...] 90 Tablet 1 04/25/20 23 024 Discontinued Oyadrrtgsn-MSHF-Sm ffeine 50-325-40 MG Oral Tablet (Fioricet)Indicati ons:Migraine [...] MD (myocardial infarction) 03/01/2023 03/01/2023 Atherosclerosis of [place] co ronary artery without angina pectoris 02/08/2022 [...] malnutrition 09/28/2018 09/23/2021 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/2021 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 02/06/2017 05/02/2018 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 02/06/2017 07/09/2019 Iron deficiency anemia [...] mRNA, LNP-s, No Pre serve, 2-Dose Series ([employer]) 02/16/2021,11/25/2020,11/01/2020 COVID-19, MRNA-LNP, 23-24, P F, 30 MCG/0.3 mL, 12 YRS AND ABOVE, IM (Telest[employer]-Comirnat) 04/10/2023 Covid-19, Mrna, Lnp-s, Pf, B ivalent, 30 Mcg, IM, 12 yrs and above ([employer]) 04/12/2022 Pneumococcal Conjugate Vacci ne, 20-valent ([id number]) 12/10/2021 Pneumococcal Polysaccharide PPV23 (Pneumovax) 07/21/2009 Seasonal [...] encounter Miscellaneous Notes * Telephone Encounter - Maria D Duarte OSA - 07/26/2023 3:48 PM EST Patient is recall list, no openings with Dr. Wilkerson * Telephone Encounter - Magdalena Zabala OSA - 07/26/2023 3:43 PM EST Please contact pt to schedule with Vic Wilkerson as a VV GULSHAN Coronado 07/26/2023 3:43 PM * Telephone Encounter - Magdalena Zabala OSA - 07/12/2023 3:12 PM EST Lmm for pt to call back to schedule: Return in about 4 weeks (around 08/08/2023). GULSHAN Coronado 07/12/2023 3:12 PM documented in this encounter Plan of Treatment Upcoming Encounters Date Type Department Care Team (Late st Contact Info) Description 07/31/2023 10:45 AM EST Immunization/Injection Hematology/Oncology Treatment, [place] [address] [place] [address] Nurse, Med [address] [place] [address] 07/31/2023 1:30 PM EST Imaging Radiology [address], [address] [address] 08/12/2023 8:00 AM EST Imaging Radiology [address] [address] 08/12/2023 8:45 AM EST Imaging Radiology [address], [address] [address] 08/14/2023 11:30 AM EST Telemedicine Psychiatry, [place] [address] [place] [address] Alexis Serna MD [address] [place] [facility] [place] [phone] 08/15/2023 3:40 PM EST Office Visit [address] [phone] Evelyn Andrews MD [address] [place] [address] [place] [address] 08/25/2023 10:15 AM EST Telemedicine Urology [place] [address] [place] [address] Christopher Almonte MD [address] [place] [address] 7, Telemed [facility] Urology Ex Rm [address] [place] [address] 09/12/2023 3:20 PM EDT Office Visit Nephrology [address] [place] [address] Eliza Boles MD [address] [place] [address] 10/02/2023 9:20 AM EDT Office Visit Neurology [facility] [address] [place] [address] Aris Mohr MD 200 [facility] [place] [address] 10/17/2023 3:20 PM EDT Office Visit Gastroenterology, [facility] [address] [place] [address] Milind Yadav MD [address] [place] [address] Health Maintenance Due Date Last Done Comments [...] Additional history exists CKD HGB USE SMARTSET 64112 06/12/202406/12, 03/13/2023, 03/13/2023, Additional history exists CKD PHOS USE SMARTSET 94251 07/24/202406/27, 06/20/2023, 06/12/2023, Additional history exists DTaP,Tdap,and [...] this encounter Medical Devices Implanted Type Area Lip And Gate Builder Device Identifier Shelf Expiration Date Model / Serial / Lot Stent Axios 20mm - [id number] Implanted:Qty: 1 on 01/04/2021 by Leyda Garcia MD at OR [facility] N/A: Stomach [employer] : ENDOSCOPY 11/20/2021 [id number] / / [id number] documented as of this encounter Advance Directives Documents on File Type Date Recorded Patient Supervisor Wire Rope Fabrication Expl surekha POL 01/03/2022 [place] OR [facility] FOR LIFE-SUSTAINING TREATMENT [...] Other - (no specific identity) Health Care Supervisor Wire Rope Fabrication (appointed verbally by patient or by statute hierarchy) Rowdy Kraus Health Care Supervisor Wire Rope Fabrication (appointed verbally by patient or by statute hierarchy) Care Teams Parts Processor Relationship Specialty Start Date End Date Evelyn Andrews MD [address] [place] [address] [place] [address] PCP - General Family Medicine 05/04/18 documented as of this encounter
--- OUTSIDE RECORDS SUMMARY | 2023-12-07 18:43 | External Medical Summary | Summary of Care ---
Author Name Unknown Organization [facility] Address [address] [place] [address] Phone [phone] Care Team Providers Care Lithographic Photographer Apprentice Name Role Phone Evelyn Andrews MD Primary Care Prov ider Reason for Visit * Reason Comments Medication Management Encounter Details Date Type Department Care Team (Late st Contact Info) Description 07/27/2023 Documentation Home Infusion, [place] [address] [place] [address] [phone] Allergies Active Allergy Reactions Criticality Noted Date [...] 12/15/2022 Active Vitamin D (Ergocalciferol) 1.25 MG (09724 UT) Oral Capsule (Drisdol)Indication s:Diarrhea due to [...] Cough. 120 mL 0 06/28/2023 Active Nystatin 907792 UNIT/GM External Cream APPLY TO AFFECTED AREA TWICE A DAY 30 g 2 06/30/2023 Active Diphenoxylate-Atrop ine 2.5-0.025 MG Oral Tablet (Lomotil)Indication s:Migraine variant TAKE ONE TABLET BY MOUTH 4 TIMES DAILY NEEDED FOR DAIRRHEA 60 Tablet 0 07/05/2023 Active OLANZapine 5 MG Oral Tablet Disintegrating (zyPREXA zyDIS) Place 1 Tablet on tongue in the morning. 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 02/06/2017 05/02/2018 SKIVER MACHINE 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 02/06/2017 07/09/2019 Iron deficiency anemia 06/28/201109/20 [...] mRNA, LNP-s, No Pre serve, 2-Dose Series (Electronic Payment and Services (EPS)) 02/16/2021,11/25/2020,11/01/2020 COVID-19, MRNA-LNP, 23-24, P F, 30 MCG/0.3 mL, 12 YRS AND ABOVE, IM ([employer]-Comirnaty) 04/10/2023 Covid-19, Mrna, Lnp-s, Pf, B ivalent, 30 Mcg, IM, 12 yrs and above (Electronic Payment and Services (EPS)) 04/12/2022 Pneumococcal Conjugate Vacci ne, 20-valent ([id number]) 12/10/2021 Pneumococcal Polysaccharide PPV23 (Pneumovax) 07/21/2009 Seasonal [...] this encounter Progress Notes * Mayra Crook, [facility] - 07/27/2023 10:47 AM EST [facility] Adult TPN Documentation Patient Phone Numbers mobile [phone] Results for orders placed or performed during [...] 07/31/2023 10:45 AM EST Immunization/Injection Hematology/Oncology Treatment, [place] [address] [place] [address] Nurse, Med 4 200 [facility] [place] [address] 07/31/2023 1:30 PM EST Imaging Radiology [address], [address] [place] [address] 08/12/2023 8:00 AM EST Imaging Radiology [address], [address] [place] [address] 08/12/2023 8:45 AM EST Imaging Radiology [address], [address] [place] [address] 08/14/2023 11:30 AM EST Telemedicine Psychiatry, [place] [address] [place] [address] Alexis Serna MD [address] [place] [address] 08/15/2023 3:40 PM EST Office Visit Family Medicine [address] [place] [address] Evelyn Andrews MD [address] [place] [address] [place] [address] 08/25/2023 10:15 AM EST Telemedicine Urology Grace Martinez [address] [place] [address] [place] [address] Christopher Almonte MD [address] [place] [address] [place] [address] 7, [facility] 132 [facility] [address] 09/12/2023 3:20 PM EDT Office Visit Nephrology [address] [place] [address] Eliza Boles MD 200 [facility] [place] [address] 10/02/2023 9:20 AM EDT Office Visit Neurology [facility] [address] [facility] [place] [address] Aris Mohr MD [address] [facility] [place] [address] 10/17/2023 3:20 PM EDT Office Visit Gastroenterology, [facility] [address] [place] [address] Milind Yadav MD [address] [place] [address] Health Maintenance Due Date Last Done Comments [...] Additional history exists CKD HGB USE SMARTSET 18461 06/12/202406/12, 03/13/2023, 03/13/2023, Additional history exists CKD PHOS USE SMARTSET 02373 07/24/202406/27, 06/20/2023, 06/12/2023, Additional history exists DTaP,Tdap,and [...] this encounter Medical Devices Implanted Type Area Residential Sales Executive Device Identifier Shelf Expiration Date Model / Serial / Lot Stent Axios 20mm - [id number] Implanted:Qty: 1 on 01/04/2021 by Leyda Garcia MD at OR [facility] N/A: Stomach [employer] : ENDOSCOPY 11/20/2021 [id number] / / [id number] documented as of this encounter Advance Directives Documents on File Type Date Recorded Patient Central Sterile Technician Expl anation POLST 01/03/2022 [place] OR [facility] FOR LIFE-SUSTAINING [...] Other - (no specific identity) Health Care Central Sterile Technician (appointed verbally by patient or by statute hierarchy) Rowdy Kraus Health Care Central Sterile Technician (appointed verbally by patient or by statute hierarchy) Care Teams Lithographic Photographer Apprentice Relationship Specialty Start Date End Date Evelyn Andrews MD [address] [place] [address] [place] [address] PCP - General Family Medicine 05/04/18 documented as of this encounter
--- OUTSIDE RECORDS SUMMARY | 2023-12-07 18:43 | External Medical Summary | Summary of Care ---
Author Name Unknown Organization [facility] Address [address] [place] [address] Phone [phone] Care Team Providers Care Pre K Special Education Teacher Name Role Phone Evelyn Andrews MD Primary Care Prov ider Encounter Details Date Type Department Care Team (Late st Contact Info) Description 2023 Telephone Hematology/Oncology Treatment, [place] [address] [place] [address] Boogie Ortiz MD 200 [facility] [place] [address] Allergies Active Allergy Reactions Criticality Noted Date Comments Amoxicillin Edema airway High 01/22/2003 Oxybutynin 03/25/2023 Mouth ulcers Sulfa Antibiotics Edema airway High 08/15/2006 documented as of this encounter (statuses as of 08/08/2023) Medications Medication Sig Dispensed Refills Start Date [...] 12/15/2022 Active Vitamin D (Ergocalciferol) 1.25 MG (56063 UT) Oral Capsule (Drisdol)Indication s:Diarrhea due to [...] Cough. 120 mL 0 06/28/2023 Active Nystatin 973911 UNIT/GM External Cream APPLY TO AFFECTED AREA TWICE A DAY 30 g 2 06/30/2023 Active Diphenoxylate-Atrop ine 2.5-0.025 MG Oral Tablet (Lomotil)Indication s:Migraine variant TAKE ONE TABLET BY MOUTH 4 TIMES DAILY NEEDED FOR DAIRRHEA 60 Tablet 0 07/05/2023 Active OLANZapine 5 MG Oral Tablet Disintegrating (zyPREXA zyDIS) Place 1 Tablet on tongue in the morning. 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 02/06/2017 05/02/2018 VIBRATORY PILE DRIVER 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 02/06/2017 07/09/2019 Iron deficiency anemia 06/28/201109/20 Overview: ICD-10 update of inactive term Iron deficiency anemia 06/28/201109/20 Overview: ICD-10 update of inactive term Iron deficiency anemia pat paulino to inadequate dietary iron intake 09/26/2008 3 Infected postoperative seroma 06/02/2003 09/20/2012 PANNICULITIS, [facility] SITE 05/14/200311/2022 documented as of this encounter (statuses as of 08/08/2023) Immunizations Name Administration Dates Next Due COVID-19 mRNA, LNP-s, No Pre serve, 2-Dose Series ([employer]) 02/16/2021,11/25/2020,11/01/2020 COVID-19, MRNA-LNP, 23-24, P F, 30 MCG/0.3 mL, 12 YRS AND ABOVE, IM ([facility]) 04/10/2023 Covid-19, Mrna, Lnp-s, Pf, B ivalent, 30 Mcg, IM, 12 yrs and above ([employer]) 04/12/2022 Pneumococcal Conjugate Vacci ne, 20-valent ([id number]) 12/10/2021 Pneumococcal Polysaccharide PPV23 (Pneumovax) 07/21/2009 Seasonal [...] Description 08/12/2023 8:00 AM EST Imaging Radiology [address] [place] [address] 08/12/2023 8:45 AM EST Imaging Radiology [address] [place] [address] 08/14/2023 10:45 AM EST Immunization/Injection Hematology/Oncology Treatment, [address] [place] [address] Nurse, Med [address] [place] [address] [place] [address] 08/14/2023 11:30 AM EST Telemedicine Psychiatry, [place] [address] [place] [address] Alexis Serna MD [address] [place] [address] 08/15/2023 3:40 PM EST Office Visit Family Medicine [address] [phone] Evelyn Andrews MD [address] [place] [address] [place] [address] 08/21/2023 10:45 AM EST Immunization/Injection Hematology/Oncology [address], [address] [address] Nurse, Med 4 200 [facility] [place] [address] 08/25/2023 10:15 AM EST Telemedicine Urology [place] [address] [place] [address] [place] [address] Christopher Almonte MD [address] [place] [address] 7, Telemed [facility] Urology Ex Rm [address] [place] [address] 09/12/2023 3:20 PM EDT Office Visit Nephrology [address] [place] [address] Eliza Boles MD 200 [facility] [place] [address] 10/02/2023 9:20 AM EDT Office Visit Neurology [facility] 200 [facility] [place] [address] Aris Mohr MD 200 [facility] [place] [address] 10/17/2023 3:20 PM EDT Office Visit Gastroenterology, [facility] [address] [place] [address] Milind Yadav MD [address] [place] [address] Health Maintenance Due Date Last Done Comments [...] Additional history exists CKD HGB USE SMARTSET 83642 06/12/202406/12, 03/13/2023, 03/13/2023, Additional history exists CKD PHOS USE SMARTSET 25157 07/31/202410/2023, 07/24/2023, 06/20/2023, Additional history exists DTaP,Tdap,and [...] this encounter Medical Devices Implanted Type Area Aircraft De Icer Installer Device Identifier Shelf Expiration Date Model / Serial / Lot Stent Axios 20mm - [id number] Implanted:Qty: 1 on 01/04/2021 by Leyda Garcia MD at OR [facility] N/A: Stomach [employer] : ENDOSCOPY 11/20/2021 [id number] / / [id number] documented as of this encounter Advance Directives Documents on File Type Date Recorded Patient Apparatus Repair Mechanic Expl anation POLST 01/03/2022 [place] OR [facility] FOR LIFE-SUSTAINING TREATMENT Latest Code [...] Other - (no specific identity) Health Care Apparatus Repair Mechanic (appointed verbally by patient or by statute hierarchy) Rowdy Hogue Sibling Health Care Apparatus Repair Mechanic (appointed verbally by patient or by statute hierarchy) Care Teams Pre K Special Education Teacher Relationship Specialty Start Date End Date Evelyn Andrews MD [address] [place] [address] [place] [address] PCP - General Family Medicine 05/04/18 documented as of this encounter
--- OUTSIDE RECORDS SUMMARY | 2023-12-07 18:44 | External Medical Summary | Summary of Care ---
Author Name Unknown Organization [facility] Address [address] [place] [address] Phone [phone] Care Team Providers Care Pharmacist In Charge Name Role Phone Evelyn Andrews MD Primary Care Prov ider Reason for Visit * Reason Onset Date Comments Nausea 07/04/2023 Encounter Details Date Type Department Care Team (Late st Contact Info) Description 07/04/2023 Telephone Nutrition & Weight Management, [place] [address] [place] [address] Madeline Britt RN [address] [place] [address] Nausea Allergies Active Allergy Reactions Criticality Noted Date Comments Amoxicillin Edema airway High 01/22/2003 Oxybutynin 03/25/2023 Mouth ulcers Sulfa Antibiotics Edema airway High 08/15/2006 documented as of this encounter (statuses as of 07/10/2023) Medications Medication Sig Dispensed Refills Start Date [...] as directed.. 42.5 g 2 05/23/2022 Active Omeprazole 20 MG Oral Capsule Delayed Release (PriLOSEC) TAKE 1 CAPSULE BY MOUTH EVERY DAY IN THE MORNING 90 Capsule 5 07/11/2022 Active Dicyclomine HCl 20 MG Oral Tablet [...] 12/15/2022 Active Vitamin D (Ergocalciferol) 1.25 MG (44788 UT) Oral Capsule (Drisdol)Indication s:Diarrhea due to [...] at bedtime. 30 Tablet 3 04/12/2023 Active Ondansetron 4 MG Oral Tablet Disintegrating (Zofran)Indications :Intractable vomiting with nausea Place 1 Tablet on tongue every 8 hours as needed for Nausea. 90 Tablet 1 04/25/2023 Active Lmaajwurkj-SLDA-Rfy feine 50-325-40 MG Oral Tablet (Fioricet)Indicatio ns:Migraine variant TAKE ONE TABLET EVERY 6 HOURS NEEDED FOR PAIN 90 Tablet 1 05/19/2023 Active Promethazine HCl 25 MG Oral Tablet [...] Cough. 120 mL 0 06/28/2023 Active Nystatin 421706 UNIT/GM External Cream APPLY TO AFFECTED AREA TWICE A DAY 30 g 2 06/30/2023 Active documented as of this encounter (statuses as of 07/10/2023) Active Problems Problem Noted Date Diagnosed Date [...] protocol Severe protein-energy malnutrition 07/09/2019 Myelopathy 07/09/2019 Recurrent major depressive disorder, in partial remission 07/09/2019 Hereditary and idiopathic peripheral neuropathy 07/09/2019 [...] as of this encounter (statuses as of 07/10/2023) Resolved Problems Problem Noted Date Diagnosed Date Resolved Date Old RI (myocardial infarction) 03/01/2023 03/01/2023 Atherosclerosis of [place] co ronary artery without angina pectoris 02/08/2022 03/08/2022 Hyperparathyroidism 10/15/2021 03/01/20 23 Decreased GFR 08/17/2021 03/01/2023 Nephrolithiasis 02/16/2021 01/27/2022 Overview: Cysto 11/24/21 PFO with atrial septal aneurysm 05/16/2019 06/07/2022 Iron deficiency anemia 04/24/201911/29 Overview: More specific on PL Protein-calorie malnutrition 09/28/2018 09/23/2021 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/2021 FERRYBOAT OPERATOR 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 02/06/2017 05/02/2018 FERRYBOAT OPERATOR 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 02/06/2017 07/09/2019 Iron deficiency anemia 06/28/201109/20 Overview: ICD-10 update of inactive term Iron deficiency anemia 06/28/201109/20 Overview: ICD-10 update of inactive term Iron deficiency anemia pat paulino to inadequate dietary iron intake 09/26/2008 3 Infected postoperative seroma 06/02/2003 09/20/2012 PANNICULITIS, [facility]SP SITE 05/14/2003 09/0 11/2022 documented as of this encounter (statuses as of 07/10/2023) Immunizations Name Administration Dates Next Due COVID-19 mRNA, LNP-s, No Pre serve, 2-Dose Series ([employer]) 02/16/2021,11/25/2020,11/01/2020 COVID-19, MRNA-LNP, 23-24, P F, 30 MCG/0.3 mL, 12 YRS AND ABOVE, IM ([facility]) 04/10/2023 Covid-19, Mrna, Lnp-s, Pf, B ivalent, 30 Mcg, IM, 12 yrs and above (Pfizer) 04/12/2022 Pneumococcal Conjugate Vacci ne, 20-valent ([id number]) 12/10/2021 Pneumococcal Polysaccharide PPV23 (Pneumovax) 07/21/2009 Seasonal [...] encounter Miscellaneous Notes * Telephone Encounter - Vic Wilkerson DO - 07/06/2023 12:36 PM EST Spoke with patient last week. She has Covid but breathing stable. States there is no issues with her TPN. I will see her via telemedicine on 07/11. Plan: - Labs as scheduled - Continue with same TPN til then - Will need TPN for at least another 90 days. --OTTO Wilkerson DO, FACYas, FACP Director, [facility] Referral Coordinator, Department of Gastroenterology/Nutrition * Telephone Encounter - Madeline Britt RN - 07/04/2023 3:38 PM EST Pt calls to report she is having nausea despite using the zofran and promethazine. Asking for other suggestions. Tolerating some oral food. Taking TPN nightly. Weight 72. Pt does not have f/u appt with Dr. Wilkerson. I really had nothing to add , except gingerale as otc anti nausea. Looking to set up appt for 07/11. She is in agreemen. Madeline Britt, MSN, RN, Clinical Nurse Specialist [address] [phone] documented in this encounter Plan of Treatment Upcoming Encounters Date Type Department Care Team (Late st Contact Info) Description 07/11/2023 9:40 AM EST Telemedicine Nutrition & Weight Management, [address] [address] Vic Wilkerson DO [address] [place] [address] 07/18/2023 11:40 AM EST Office Visit Family Medicine [address] [phone] Evelyn Andrews MD [address] [place] [address] [place] [address] 07/31/2023 1:30 PM EST Imaging Radiology [address] [address] 08/14/2023 11:30 AM EST Telemedicine Psychiatry, [address] [address] Alexis Serna MD [address] [place] [phone] 08/15/2023 3:40 PM EST Office Visit Family Medicine [address] [phone] Evelyn Andrews MD [address] [place] [address] [place] [address] 08/25/2023 10:15 AM EST Telemedicine Urology Grace Martinez [address] [place] [address] Christopher Almonte MD [address] [place] [address] [place] [address] 7, Telemed [facility] Urology Ex Rm [address] [place] [address] 09/12/2023 3:20 PM EDT Office Visit Nephrology [address] [place] [address] Eliza Boles MD [address] [place] [address] 10/17/2023 3:20 PM EDT Office Visit Gastroenterology, [facility] [address] [place] [address] Milind Yadav MD [address] [place] [address] Health Maintenance Due Date Last Done Comments [...] 11/24, 01/15/2007 Colorectal Cancer Screening 12/11/2023 GFR 12/20/2023 06/20/2023, 05/26, 05/22/2023, Additional history exists CKD HGB USE SMARTSET 67278 06/12/202406/12, 03/13/2023, 03/13/2023, Additional history exists CKD PHOS USE SMARTSET 40403 06/20/2024 1211/2022, 06/12/2023, 05/22/2023, Additional history exists DTaP,Tdap,and Td Vaccines (2 [...] this encounter Medical Devices Implanted Type Area Veterans Service Officer Device Identifier Shelf Expiration Date Model / Serial / Lot Stent Axios 20mm - [id number] Implanted:Qty: 1 on 01/04/2021 by Leyda Garcia MD at OR [facility] N/A: Stomach [employer] : ENDOSCOPY 11/20/2021 [id number] / / [id number] documented as of this encounter Advance Directives Documents on File Type Date Recorded Patient Crane Service Technician Expl anation POLST 01/03/2022 [place] OR [facility] FOR LIFE-SUSTAINING TREATMENT [...] Other - (no specific identity) Health Care Crane Service Technician (appointed verbally by patient or by statute hierarchy) Rowdy Hogue [facility] Health Care Crane Service Technician (appointed verbally by patient or by statute hierarchy) Care Teams Pharmacist In Charge Relationship Specialty Start Date End Date Evelyn Andrews MD [address] [place] [address] [place] [address] PCP - General Family Medicine 05/04/18 documented as of this encounter
--- OUTSIDE RECORDS SUMMARY | 2023-12-07 18:44 | External Medical Summary ---
Author Name Unknown Address Unknown Organization K01:[facility] - [address] [address] [place] [address] Laboratory Report Ordering Provider Test Date Status TUYET RAMIREZYonathan 07/24/2023 12:02:44 Final Observation Date Value Abnormality Reference (Units ) Status Calcium.ionized [Moles/volume] in Serum or Plasma by Ion-selective membrane electrode (ISE) 07/24/2023 12:02:44 1.16 1.13-1.32 (mmol/L) Final This test was developed and its performance characteristics dtermined by [employer]. It has not been cleared or approved by the US Food and Drug Administration Performing Location [facility] [place] - [address] [place] [address]
--- OUTSIDE RECORDS SUMMARY | 2023-12-07 18:44 | External Medical Summary | Summary of Care ---
Author Name Unknown Organization [facility] Address [address] [place] [address] Phone [phone] Care Team Providers Care Ruby Rails Developer Name Role Phone Evelyn Andrews MD Primary Care Prov ider Reason for Visit * Reason Onset Date Comments Test Results 04/10/2023 Encounter Details Date Type Department Care Team (Late st Contact Info) Description 04/10/[address] [phone] Li Cano PA-C [address] [place] [address] [place] [address] Test Results Allergies Active Allergy Reactions Criticality Noted Date [...] 20 mg 480 Tablet 1 09/29/19 Active Lidocaine 4 % External Patch (Aspercreme) [...] 23 Active Vitamin D (Ergocalciferol) 1.25 MG (61082 UT) Oral Capsule (Drisdol)Indicatio ns:Diarrhea due to [...] by mouth at bedtime. 30 Tablet 3 10/05/19 23 023 Discontinued(Re fill) Docusate Sodium 100 MG Oral Capsule (Colace) Take 1 Capsule by mouth in the morning and 1 Capsule before bedtime. 10 Capsule 0 11/19/19 23 023 Discontinued Gabapentin 300 MG Oral Capsule (Neurontin) Take 1 Capsule by mouth in the morning and 1 Capsule before bedtime. 60 Capsule 0 12/16/19 23 023 Discontinued Polyethylene Glycol 3350 17 GM Oral Packet (MiraLax) Take 1 Packet by mouth daily as needed for Constipation. 14 Each 0 12/16/19 23 023 Discontinued Promethazine HCl 25 MG Oral Tablet (Phenergan)Indicat ions:Nausea TAKE ONE TABLET BY MOUTH EVERY 6 HOURS NEEDED FOR NAUSEA OR VOMITING 30 Tablet 3 11/16/19 23 023 Discontinued(Re fill) Ondansetron 4 MG Oral Tablet Disintegrating (Zofran)Indication s:Intractable vomiting with nausea DISSOLVE ONE TABLET ON TONGUE EVERY EIGHT HOURS NEEDED FOR NAUSEA 90 Tablet 1 01/14/20 23 023 Discontinued(Re fill) Dronabinol 2.5 MG Oral Capsule (Marinol) Take 1 Capsule by mouth every night at bedtime. 90 Capsule 5 01/20/20 23 023 Discontinued Rizatriptan Benzoate 10 MG Oral Tablet (Maxalt) TAKE 1 TAB BY MOUTH DAILY NEEDED FOR MIGRAINE. 10 Tablet 5 02/18/20 23 023 Discontinued(Re fill) ALPRAZolam 0.25 MG Oral Tablet (xaNAX) Take 1 Tablet by mouth at bedtime as needed for Sleep. 30 Tablet 3 02/22/20 23 023 Discontinued(Re fill) OLANZapine 2.5 MG Oral Tablet (zyPREXA) Take one-half tablet by mouth at bedtime. 45 Tablet 3 03/02/20 23 023 Discontinued(Re fill) Diphenoxylate-Atro pine 2.5-0.025 MG Oral Tablet (Lomotil)Indicatio ns:Migraine variant TAKE ONE TABLET BY MOUTH 4 TIMES DAILY NEEDED FOR DAIRRHEA 60 Tablet 0 03/16/20 23 023 Discontinued(Re fill) Pxeaachbzk-LLNE-Rc ffeine 50-325-40 MG Oral Tablet (Fioricet)Indicati ons:Migraine variant TAKE ONE TABLET EVERY 6 HOURS NEEDED FOR PAIN 90 Tablet 1 03/16/20 23 023 Discontinued(Re fill) Nystatin 616557 UNIT/GM External Cream Apply topically to affected area 2 times a day. 30 g 2 04/03/20 23 024 Discontinued Doxycycline Hyclate 100 MG Oral CapsuleIndications :Pain of right lower leg Take 1 Capsule by mouth in the morning and 1 Capsule before bedtime. Do all this for 10 days. Until gone.. 20 Capsule 0 04/04/20 23 023 predniSONE 20 MG Oral Tablet (Deltasone) Take 80 mg for 2 days, 60 mg for 2 days, 40 mg for 2 days, 20 mg for 2 days then 10 mg for 2 days 25 Tablet 0 04/05/20 23 023 Discontinued(Re fill) documented as of this encounter [...] Noted Date Diagnosed Date Resolved Date Old PA (myocardial infarction) 03/01/2023 03/01/2023 Atherosclerosis of [place] co ronary artery without angina pectoris 02/08/2022 03/08/2022 Hyperparathyroidism 10/15/2021 03/01/20 23 Decreased GFR 08/17/2021 03/01/2023 Nephrolithiasis 02/16/2021 01/27/2022 Overview: Cysto 11/24/21 PFO with atrial septal aneurysm 05/16/2019 06/07/2022 Iron deficiency anemia 04/24/201911/29 Overview: More specific on PL Protein-calorie malnutrition 09/28/2018 09/23/2021 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/2021 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 02/06/2017 05/02/2018 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 02/06/2017 07/09/2019 Iron deficiency anemia [...] mRNA, LNP-s, No Pre serve, 2-Dose Series ([employer]) 02/16/2021,11/25/2020,11/01/2020 COVID-19, MRNA-LNP, 23-24, P F, 30 MCG/0.3 mL, 12 YRS AND ABOVE, IM ([facility]) 04/10/2023 Covid-19, Mrna, Lnp-s, Pf, B ivalent, 30 Mcg, IM, 12 yrs and above (Pfizer) 04/12/2022 Pneumococcal Conjugate Vacci ne, 20-valent ([id number]) 12/10/2021 Pneumococcal Polysaccharide PPV23 (Pneumovax) 07/21/2009 Seasonal [...] (15 years old or older) No 12/09/19 23 Cognitive Status Response Date of Assessm ent Because of a physical, menta l, or emotional condition, do you have serious difficulty concentrating, remembering, or making decisions? (5 years old or older) No 12/08/2022 documented as of this encounter Miscellaneous Notes * Telephone Encounter - Dena Rhodes LPN - 04/10/2023 2:04 PM EDT [facility] from /s dept called with prelim report. Pt negative for DVT right lower extremity. Soft tissue calf collection 4.9 x 1.2 x 4.6 cm Probable hematoma or Seroma. documented in this encounter Plan of Treatment Upcoming Encounters Date Type Department Care Team (Late st Contact Info) Description 07/11/2023 9:40 AM EST Telemedicine Nutrition & Weight Management, [facility] [address] [facility] [place] [address] Vic Wilkerson, DO [address] [place] [address] 07/17/2023 11:00 AM EST Immunization/Injectio n Hematology/Oncology Treatment, [address] [address] Nurse, Med [address] [place], [place] [address] [address] 07/18/2023 11:40 AM EST Office Visit Family Medicine [address] [place] [phone] Evelyn Andrews MD [address] [place] [address] [place] [address] 07/24/2023 11:15 AM EST Immunization/Injectio n Hematology/Oncology Treatment, [address] [place] [address] Nurse, Med [address] [place] [address] 07/31/2023 10:45 AM EST Immunization/Injectio n Hematology/Oncology Treatment, [place] [address] [place] [address] Nurse, Med 4 [address] [place] [address] 07/31/2023 1:30 PM EST Imaging Radiology [facility], [place] [address] [place] [address] 08/14/2023 11:30 AM EST Telemedicine Psychiatry, [place] [address] [place] [address] Alexis Serna MD [address] [place] [phone] 08/15/2023 3:40 PM EST Office Visit Family Medicine [address] [place] [phone] Evelyn Andrews MD [address] [place] [address] [place] [address] 08/25/2023 10:15 AM EST Telemedicine Urology Grace Martinez [address] [place] [address] Christopher Almonte MD [address] [place] [address] 7, Telemed [facility] Urology Ex [address] [place] [address] 09/12/2023 3:20 PM EDT Office Visit Nephrology [address] [place] [address] Eliza Boles MD [address] [place] [address] 10/17/2023 3:20 PM EDT Office Visit Gastroenterology, [facility] [address] [place] [address] Milind Yadav MD [address] [place] [place] [address] Health Maintenance Due Date Last Done Comments [...] Additional history exists CKD HGB USE SMARTSET 36219 06/12/202406/12, 03/13/2023, 03/13/2023, Additional history exists CKD PHOS USE SMARTSET 57517 06/20/202405/27, 06/12/2023, 05/22/2023, Additional history exists DTaP,Tdap,and Td [...] this encounter Medical Devices Implanted Type Area Merchandise Collector Device Identifier Shelf Expiration Date Model / Serial / Lot Stent Axios 20mm - [id number] Implanted:Qty: 1 on 01/04/2021 by Leyda Garcia MD at OR [facility] N/A: Stomach [employer] : ENDOSCOPY 11/20/2021 [id number] / / [id number] documented as of this encounter Advance Directives Documents on File Type Date Recorded Patient Sports Marketing Specialist Expl anation POLST 01/03/[address] [place] [address] [facility] FOR LIFE-SUSTAINING TREATMENT Latest Code [...] Other - (no specific identity) Health Care Sports Marketing Specialist (appointed verbally by patient or by statute hierarchy) Rowdy Kraus Health Care Sports Marketing Specialist (appointed verbally by patient or by statute hierarchy) Care Teams Ruby Rails Developer Relationship Specialty Start Date End Date Evelyn Andrews MD [address] [place] [address] [place] [address] PCP - General Family Medicine 05/04/18 documented as of this encounter
--- OUTSIDE RECORDS SUMMARY | 2023-12-07 18:44 | External Medical Summary | Summary of Care ---
Author Name Unknown Organization [facility] Address [address] [place] [address] Phone [phone] Care Team Providers Care Medical Staffing Coordinator Name Role Phone Evelyn Andrews MD Primary Care Prov ider Reason for Visit * Reason Onset Date Comments Appointment 07/12/2023 Encounter Details Date Type Department Care Team (Late st Contact Info) Description 07/12/2023 Telephone Nutrition & Weight Management, [place] [address] [place], [place] [phone] Vic Wilkerson, [address] [place], [place] [phone] Appointment Allergies Active Allergy Reactions Criticality Noted Date Comments Amoxicillin Edema airway High 01/22/2003 Oxybutynin 03/25/2023 Mouth ulcers Sulfa Antibiotics Edema airway High 08/15/2006 documented as of this encounter (statuses as of 07/12/2023) Medications Medication Sig Dispensed Refills Start Date [...] 12/15/2022 Active Vitamin D (Ergocalciferol) 1.25 MG (93912 UT) Oral Capsule (Drisdol)Indication s:Diarrhea due to [...] for Nausea. 90 Tablet 1 04/25/2023 Active Eglxtqfsue-SWWC-Ota feine 50-325-40 MG Oral Tablet (Fioricet)Indicatio ns:Migraine [...] Cough. 120 mL 0 06/28/2023 Active Nystatin 962621 UNIT/GM External Cream APPLY TO AFFECTED AREA TWICE A DAY 30 g 2 06/30/2023 Active Diphenoxylate-Atrop ine 2.5-0.025 MG Oral Tablet (Lomotil)Indication s:Migraine variant TAKE ONE TABLET BY MOUTH 4 TIMES DAILY NEEDED FOR DAIRRHEA 60 Tablet 0 07/05/2023 Active OLANZapine 5 MG Oral Tablet Disintegrating (zyPREXA zyDIS) Place 1 Tablet on tongue in the morning. 30 Tablet 5 07/04/2023 Active documented as of this encounter (statuses as of 07/12/2023) Active Problems Problem Noted Date Diagnosed Date [...] as of this encounter (statuses as of 07/12/2023) Resolved Problems Problem Noted Date Diagnosed Date Resolved Date Old [place] (myocardial infarction) 03/01/2023 03/01/2023 Atherosclerosis of [place] co ronary artery without angina pectoris 02/08/2022 03/08/2022 Hyperparathyroidism 10/15/2021 03/01/20 23 Decreased GFR 08/17/2021 03/01/2023 Nephrolithiasis 02/16/2021 01/27/2022 Overview: Cysto 11/24/21 PFO with atrial septal aneurysm 05/16/2019 06/07/2022 Iron deficiency anemia 04/24/201911/29 Overview: More specific on PL Protein-calorie malnutrition 09/28/2018 09/23/2021 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/2021 POWER BUILDER DEVELOPER 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 02/06/2017 05/02/2018 POWER BUILDER DEVELOPER 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 02/06/2017 07/09/2019 Iron deficiency anemia 06/28/201109/20 Overview: ICD-10 update of inactive term Iron deficiency anemia 06/28/201109/20 Overview: ICD-10 update of inactive term Iron deficiency anemia pat paulino to inadequate dietary iron intake 09/26/2008 3 Infected postoperative seroma 06/02/2003 09/20/2012 PANNICULITIS, UNSP SITE 05/14/200311/2022 documented as of this encounter (statuses as of 07/12/2023) Immunizations Name Administration Dates Next Due COVID-19 mRNA, LNP-s, No Pre serve, 2-Dose Series ([employer]) 02/16/2021,11/25/2020,11/01/2020 COVID-19, MRNA-LNP, 23-24, P F, 30 MCG/0.3 mL, 12 YRS AND ABOVE, IM (VTM-ComirnatStartSpanish) 04/10/2023 Covid-19, Mrna, Lnp-s, Pf, B ivalent, 30 Mcg, IM, 12 yrs and above (Pfizer) 04/12/2022 Pneumococcal Conjugate Vacci ne, 20-valent (Shdmvkc30) 12/10/2021 Pneumococcal Polysaccharide PPV23 (Pneumovax) 07/21/2009 Seasonal [...] Care Team (Late st Contact Info) Description 07/17/2023 11:00 AM EST Immunization/Injection Hematology/Oncology Treatment, [place] [address] [place], [place] [phone] [facility] [address] 07/18/2023 11:40 AM EST Office Visit Family [address] [phone] Evelyn Andrews MD [address] [place] [address] [place] [address] 07/24/2023 11:15 AM EST Immunization/Injection Hematology/Oncology Treatment, [place] [address] [place] [address] Nurse, Med 4 200 [facility] [place] [address] 07/31/2023 10:45 AM EST Immunization/Injection Hematology/Oncology Treatment, [place] [address] [place] [address] Nurse, Med 4 200 [facility] [place] [address] 07/31/2023 1:30 PM EST Imaging Radiology [facility] 1st [facility], [address] [place] [address] 08/14/2023 11:30 AM EST Telemedicine Psychiatry, [place] [address] [place] [address] Alexis Serna MD [address] [place] [phone] 08/15/2023 3:40 PM EST Office Visit Family [address] [phone] Evelyn Andrews MD [address] [place] [address] [place] [address] 08/25/2023 10:15 AM EST Telemedicine Urology Grace Martinez [address] [place] [address] Christopher Almonte MD [address] [place] [address] 7, Telemed [facility] Urology Ex Rm [address] [place] [address] 09/12/2023 3:20 PM EDT Office Visit Nephrology [address] [place] [address] Eliza Boles MD 200 [facility] [place] [address] 10/17/2023 3:20 PM EDT Office Visit Gastroenterology, [facility] [address] [place] [address] Milind Yadav MD 132 [facility] [place] [address] Health Maintenance Due Date Last Done Comments [...] Additional history exists CKD HGB USE SMARTSET 93114 06/12/202406/12, 03/13/2023, 03/13/2023, Additional history exists CKD PHOS USE SMARTSET 72289 06/20/2024 12/11/2022, 06/12/2023, 05/22/2023, Additional history exists DTaP,Tdap,and Td [...] this encounter Medical Devices Implanted Type Area Pharmacy Account Director Device Identifier Shelf Expiration Date Model / Serial / Lot Stent Axios 20mm - [id number] Implanted:Qty: 1 on 01/04/2021 by Leyda Garcia MD at OR [facility] N/A: Stomach [employer] : ENDOSCOPY 11/20/2021 [id number] / / [id number] documented as of this encounter Advance Directives Documents on File Type Date Recorded Patient Crew Lead Expl anation POLST 01/03/2022 [place] OR [facility] FOR [...] Other - (no specific identity) Health Care Crew Lead (appointed verbally by patient or by statute hierarchy) Rowdy Kraus Health Care Crew Lead (appointed verbally by patient or by statute hierarchy) Care Teams Medical Staffing Coordinator Relationship Specialty Start Date End Date Evelyn Andrews MD [address] [place] [address] [place] [address] PCP - General Family Medicine 05/04/18 documented as of this encounter
--- OUTSIDE RECORDS SUMMARY | 2023-12-07 18:44 | External Medical Summary | Summary of Care ---
Author Name Unknown Organization [facility] Address [address] [place] [address] Phone [phone] Care Team Providers Care Bumper And Painter Name Role Phone Evelyn Andrews MD Primary Care Prov ider Encounter Details Date Type Department Care Team (Late st Contact Info) Description 07/10/2023 Orders Only Nutrition & Weight Management, [place] [address] [place], [place] [phone] Vic Wilkerson [address] [place], [place] [phone] Allergies Active Allergy Reactions Criticality Noted Date [...] 12/15/2022 Active Vitamin D (Ergocalciferol) 1.25 MG (65503 UT) Oral Capsule (Drisdol)Indication s:Diarrhea due to [...] for Nausea. 90 Tablet 1 04/25/2023 Active Lmvsfflcye-HPLH-Unf feine 50-325-40 MG Oral Tablet (Fioricet)Indicatio ns:Migraine [...] Cough. 120 mL 0 06/28/2023 Active Nystatin 971023 UNIT/GM External Cream APPLY TO AFFECTED AREA [...] Noted Date Diagnosed Date Resolved Date Old [place] (myocardial infarction) 03/01/2023 03/01/2023 Atherosclerosis of [place] co ronary artery without angina pectoris 02/08/2022 03/08/2022 Hyperparathyroidism 10/15/2021 03/01/20 23 Decreased GFR 08/17/2021 03/01/2023 Nephrolithiasis 02/16/2021 01/27/2022 Overview: Cysto 11/24/21 PFO with atrial septal aneurysm 05/16/2019 06/07/2022 Iron deficiency anemia 04/24/201911/29 Overview: More specific on PL Protein-calorie malnutrition 09/28/2018 09/23/2021 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/2021 POMOLOGIST 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 02/06/2017 05/02/2018 POMOLOGIST 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 02/06/2017 07/09/2019 Iron deficiency anemia 06/28/201109/20 [...] mRNA, LNP-s, No Pre serve, 2-Dose Series ([employer]) 02/16/2021,11/25/2020,11/01/2020 COVID-19, MRNA-LNP, 23-24, P F, 30 MCG/0.3 mL, 12 YRS AND ABOVE, IM ([facility]-Comirnaty) 04/10/2023 Covid-19, Mrna, Lnp-s, Pf, B ivalent, 30 Mcg, IM, 12 yrs and above (Pfizer) 04/12/2022 Pneumococcal Conjugate Vacci ne, 20-valent (Mbqtxkc90) 12/10/2021 Pneumococcal Polysaccharide PPV23 (Pneumovax) 07/21/2009 Seasonal [...] AM EST Telemedicine Nutrition & Weight Management, [facility] 132 [facility] [place] [address] Vic Wilkerson, DO [address] [facility] [place] [address] 07/17/2023 11:00 AM EST Immunization/Injectio n Hematology/Oncology Treatment, [place] [address] [place] [address] Nurse, Med [address] [place] [address] 07/18/2023 11:40 AM EST Office Visit Family [address] [phone] Evelyn Andrews MD [address] [place] [address] [place] [address] 07/24/2023 11:15 AM EST Immunization/Injectio n Hematology/Oncology Treatment, [place] [address] [place] [address] Nurse, Med 4 [address] [place] [address] 07/31/2023 10:45 AM EST Immunization/Injectio n Hematology/Oncology Treatment, [place] [address] [place] [address] Nurse, Med 4 [address] [place] [address] 07/31/2023 1:30 PM EST Imaging Radiology [facility] 1st [facility], [address] [address] 08/14/2023 11:30 AM EST Telemedicine Psychiatry, [place] [address] [place] [address] Alexis Serna MD [address] [place] [address] 08/15/2023 3:40 PM EST Office Visit Family [address] [phone] Evelyn Andrews MD [address] [place] [address] [place] [address] 08/25/2023 10:15 AM EST Telemedicine Urology Grace Martinez [address] [place] [address] Christopher Almonte MD [address] [place] [address] 7, Telemed [facility] Urology Ex Rm [address] [place] [address] 09/12/2023 3:20 PM EDT Office Visit Nephrology [address] [place] [address] Eliza Boles MD [address] [place] [address] 10/17/2023 3:20 PM EDT Office Visit Gastroenterology, [facility] [address] [place] [address] Milind Yadav MD [address] [place] [address] Health Maintenance Due Date Last Done Comments [...] Additional history exists CKD HGB USE SMARTSET 74252 06/12/202406/12, 03/13/2023, 03/13/2023, Additional history exists CKD PHOS USE SMARTSET 10447 06/20/202405/272023, 06/12/2023, 05/22/2023, Additional history exists DTaP,Tdap,and Td [...] this encounter Medical Devices Implanted Type Area [place] Construction Supervisor Device Identifier Shelf Expiration Date Model / Serial / Lot Stent Axios 20mm - [id number] Implanted:Qty: 1 on 01/04/2021 by Leyda Garcia MD at OR [facility] N/A: Stomach [employer] : ENDOSCOPY 11/20/2021 [id number] / / [id number] documented as of this encounter Advance Directives Documents on File Type Date Recorded Patient Radio Board Operator Announcer Expl anation POLST 01/03/2022 [place] OR [facility] FOR LIFE-SUSTAINING TREATMENT [...] Name Relationship Healthcare Agent Relationship Communication Ariella Scottvnice Other - (no specific identity) Health Care Radio Board Operator Announcer (appointed verbally by patient or by statute hierarchy) Rowdy Mykel Efra Health Care Radio Board Operator Announcer (appointed verbally by patient or by statute hierarchy) Care Teams Bumper And Painter Relationship Specialty Start Date End Date Evelyn Andrews MD [address] [place] [address] [place] [address] PCP - General Family Medicine 05/04/18 documented as of this encounter
--- OUTSIDE RECORDS SUMMARY | 2023-12-07 18:44 | External Medical Summary ---
Author Name Unknown Address Unknown Organization K[id number] [place] [address] Laboratory Report Ordering Provider Test Date Status TONY RAMIREZ 07/24/2023 12:02:44 Final Observation Date Value Abnormality Reference (Units ) Status BUN 07/24/2023 12:02:44 34 Above high normal 6-20 (mg/dL) Final Creatinine 07/24/2023 12:02:44 1.6 Above high normal 0.5-1.0 (mg/dL) Final Glomerular filtration rate/1.73 sq M.predicted [Volume Rate/Area] in Serum, Plasma or Blood by Creatinine-based formula (CKD-EPI) 07/24/2023 12:02:44 38 Below low normal >=60 (mL/min) Final eGFR is calculated based on the CKD-EPI 2020 equation SODIUM 07/24/2023 12:02:44 143 135-146 (m mol/L) Final Potassium 07/24/2023 12:02:44 3.6 3.5-5.1 (m mol/L) Final Cl 07/24/2023 12:02:44 111 Above high normal 98 -107 (mmol/L) Final CO2 07/24/2023 12:02:44 21 Below low normal 22- 32 (mmol/L) Final Anion gap 07/24/2023 12:02:44 11 7-15 (mmol /L) Final Glucose 07/24/2023 12:02:44 106 70-120 (mg /dL) Final Albumin 07/24/2023 12:02:44 2.9 Below low normal 3.8 -5.0 (g/dL) Final AST (Aspartate aminotransferase) 07/24/2023 12:02:44 27 10-35 (U/L) Fin al Alk Phos 07/24/2023 12:02:44 108 35-130 (U/ L) Final Bilirubin, Total 07/24/2023 12:02:44 0.2 <=1 .2 (mg/dL) Final Calcium 07/24/2023 12:02:44 8.0 Below low normal 8.4 -10.2 (mg/dL) Final Protein 07/24/2023 12:02:44 5.3 Below low normal 6.0 -8.3 (g/dL) Final ALT (Alanine aminotransferase) 07/24/2023 12:02:44 19 10-35 (U/L) Matthew belle Performing Location [facility] [address] [place] [address]
--- OUTSIDE RECORDS SUMMARY | 2023-12-07 18:44 | External Medical Summary | Summary of Care ---
Author Name Unknown Organization [facility] Address [address] [place] [address] Phone [phone] Care Team Providers Care Score Caller Name Role Phone Evelyn Andrews MD Primary Care Prov ider Reason for Visit * Reason Comments eRx-Medication Refill Encounter Details Date Type Department Care Team (Late st Contact Info) Description 07/04/2023 Refill Family Medicine [address] [phone] Evelyn Andrews MD [address] [place] [address] [place] [address] Migraine variant Allergies Active Allergy Reactions Criticality Noted Date Comments Amoxicillin Edema airway High 01/22/2003 Oxybutynin 03/25/2023 Mouth ulcers Sulfa Antibiotics Edema airway High 08/15/2006 documented as of this encounter (statuses as of 07/05/2023) Medications Medication Sig Dispensed Refills Start Date [...] 23 Active Vitamin D (Ergocalciferol) 1.25 MG (09972 UT) Oral Capsule (Drisdol)Indicatio ns:Diarrhea due to [...] bedtime. 30 Tablet 3 04/12/20 23 Active Ondansetron 4 MG Oral Tablet Disintegrating (Zofran)Indication s:Intractable vomiting with nausea Place 1 Tablet on tongue every 8 hours as needed for Nausea. 90 Tablet 1 04/25/20 23 Active Ubvskbbrrt-QUHG-Kv ffeine 50-325-40 MG Oral Tablet (Fioricet)Indicati ons:Migraine variant TAKE ONE TABLET EVERY 6 HOURS NEEDED FOR PAIN 90 Tablet 1 05/19/20 23 Active Promethazine HCl 25 MG Oral [...] 120 mL 0 06/28/19 24 Active Nystatin 599178 UNIT/GM External Cream APPLY TO AFFECTED AREA [...] morning. 30 Tablet 5 07/04/19 24 Active Diphenoxylate-Atro pine 2.5-0.025 MG Oral Tablet (Lomotil)Indicatio ns:Migraine variant TAKE ONE TABLET BY MOUTH 4 TIMES DAILY NEEDED FOR DAIRRHEA 60 Tablet 0 06/14/20 23 024 Discontinued documented as of this encounter (statuses as of 07/05/2023) Active Problems Problem Noted Date Diagnosed Date [...] as of this encounter (statuses as of 07/05/2023) Resolved Problems Problem Noted Date Diagnosed Date Resolved Date Old [place] (myocardial infarction) 03/01/2023 03/01/2023 Atherosclerosis of [place] co ronary artery without angina pectoris 02/08/2022 03/08/2022 Hyperparathyroidism 10/15/2021 03/01/20 23 Decreased GFR 08/17/2021 03/01/2023 Nephrolithiasis 02/16/2021 01/27/2022 Overview: Cysto 11/24/21 PFO with atrial septal aneurysm 05/16/2019 06/07/2022 Iron deficiency anemia 04/24/201911/29 Overview: More specific on PL Protein-calorie malnutrition 09/28/2018 09/23/2021 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/2021 HOME HEALTH LVN 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 02/06/2017 05/02/2018 HOME HEALTH LVN 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 02/06/2017 07/09/2019 Iron deficiency anemia 06/28/201109/20 Overview: ICD-10 update of inactive term Iron deficiency anemia 06/28/201109/20 Overview: ICD-10 update of inactive term Iron deficiency anemia pat paulino to inadequate dietary iron intake 09/26/2008 3 Infected postoperative seroma 06/02/2003 09/20/2012 PANNICULITIS, UNSP SITE 05/14/200311/2022 documented as of this encounter (statuses as of 07/05/2023) Immunizations Name Administration Dates Next Due COVID-19 mRNA, LNP-s, No Pre serve, 2-Dose Series ([employer]) 02/16/2021,11/25/2020,11/01/2020 COVID-19, MRNA-LNP, 23-24, P F, 30 MCG/0.3 mL, 12 YRS AND ABOVE, IM ([employer]-Comirnat) 04/10/2023 Covid-19, Mrna, Lnp-s, Pf, B ivalent, 30 Mcg, IM, 12 yrs and above ([employer]) 04/12/2022 Pneumococcal Conjugate Vacci ne, 20-valent (Aioprys36) 12/10/2021 Pneumococcal Polysaccharide PPV23 (Pneumovax) 07/21/2009 Seasonal [...] Telephone Encounter - Evelyn Andrews MD - 07/05/2023 11:21 AM ESTSigned Prescriptions: Disp Refills Diphenoxylate-Atropine 2.5-0.025 MG Oral T*60 Tab*0 Sig: TAKE ONE TABLET BY MOUTH 4 TIMES DAILY NEEDED FOR DAIRRHEA Authorizing Provider: EVELYN ANDREWS * Telephone Encounter - Nieves Gross [facility] - 07/05/2023 11:16 AM EST Pending Prescriptions: Disp Refills Diphenoxylate-Atropine 2.5-0.025 MG Oral T*60 Tab*0 Sig: TAKE ONE TABLET BY MOUTH 4 TIMES DAILY NEEDED FOR DAIRRHEA * Telephone Encounter - Nieves Gross [facility] - 07/05/2023 11:14 AM EST I have reviewed the patients controlled substance dispensing history in the Prescription Drug Monitoring Program in compliance with the [facility] regulations before prescribing a controlled substance. PDMP checked on 07/05/2023. Pending Prescriptions: Disp Refills Diphenoxylate-Atropine 2.5-0.025 MG Oral *60 Tab*0 Sig: TAKE ONE TABLET BY MOUTH 4 TIMES DAILY NEEDED FOR DAIRRHEA Last Visit: 06/14/2023 (in office), 04/05/2022 (telemedicine) Next Visit: 07/18/2023 Date medication was last filled: 06/14/23 Date medication is due for refill: 06/28/23 Pharmacy: [id number] [address] [address] Is this request for a controlled substance? Yes and Urine Drug Screen Not completed Toxicology results: No results found. However, due to the size of the patient record, not all encounters were searched.Please check Results Review for a complete set of results. Please approve if appropriate. Thanks, Nieves Gross, PharmD Clinical Pharmacist [facility] ([facility]) (Formerly Telepharmacy) [phone] 07/05/2023 11:14 AM documented in this encounter Plan of Treatment Upcoming Encounters Date Type Department Care Team (Late st Contact Info) Description 07/10/2023 11:20 AM EST Office Visit Neurology [facility] [address] [place] [address] Aris Mohr MD [address] [place] [address] 07/11/2023 9:40 AM EST Telemedicine Nutrition & Weight Management, [address] [address] Vic Wilkerson DO [address] [place] [address] 07/18/2023 11:40 AM EST Office Visit Family [address] [phone] Evelyn Andrews MD [address] [place] [address] [place] [address] 07/31/2023 1:30 PM EST Imaging Radiology [address] [place] [address] 08/14/2023 11:30 AM EST Telemedicine Psychiatry, [place] [address] [place] [address] Alexis Serna MD [address] [place] [phone] 08/15/2023 3:40 PM EST Office Visit Family [address] [phone] Evelyn Andrews MD [address] [place] [address] [place] [address] 08/25/2023 10:15 AM EST Telemedicine Urology Grace Martinez [address] [place] [address] Christopher Almonte MD [address] [place] [address] 7, Telemed [facility] [place] Urology Ex Rm [address] [place] [address] 09/12/2023 3:20 PM EDT Office Visit Nephrology [address] [place] [address] Eliza Boles MD 200 [facility] [place] [address] 10/17/2023 3:20 PM EDT Office Visit Gastroenterology, [facility] [address] [place] [address] Milind Yadav MD [address] [place] [address] Health Maintenance Due Date Last Done Comments [...] Additional history exists CKD HGB USE SMARTSET 37969 06/12/202406/12, 03/13/2023, 03/13/2023, Additional history exists CKD PHOS USE SMARTSET 91266 06/20/2024 1211/2022, 06/12/2023, 05/22/2023, Additional history exists [...] this encounter Medical Devices Implanted Type Area Small Lot Operator Device Identifier Shelf Expiration Date Model / Serial / Lot Stent Axios 20mm - [id number] Implanted:Qty: 1 on 01/04/2021 by Leyda Garcia MD at OR [facility] N/A: Stomach [employer] : ENDOSCOPY 11/20/2021 [id number] / / [id number] documented as of this encounter Visit Diagnoses Diagnosis Migraine variant Variants of migraine, not elsewhere classified, without mention of intractable migraine without mention of status migrainosus documented in this encounter Advance Directives Documents on File Type Date Recorded Patient Computerized Mill Recorder Expl anation POLST 01/03/2022 [place] [facility] Latest Code Status on [...] Other - (no specific identity) Health Care Computerized Mill Recorder (appointed verbally by patient or by statute hierarchy) Rowdy Kraus Health Care Computerized Mill Recorder (appointed verbally by patient or by statute hierarchy) Care Teams Score Caller Relationship Specialty Start Date End Date Evelyn Andrews MD [address] [place] [address] [place] [phone] PCP - General Family Medicine 05/04/18 documented as of this encounter
--- OUTSIDE RECORDS SUMMARY | 2023-12-07 18:44 | External Medical Summary | Summary of Care ---
Author Name Unknown Organization [facility] Address [address] [place] [address] Phone [phone] Care Team Providers Care Shot Packer Name Role Phone Evelny Andrews MD Primary Care Prov ider Reason for Visit * Reason Comments Procedure PICC dressing change and lab draw. Encounter Details Date Type Department Care Team (Latest Contact Info) Description 07/24/2023 11:15 AM EST Immunization/I njection Hematology/Oncology Treatment, [place] [address] [place] [address] Nurse, Med [address] [place] [id number] Encounter for adjustment and management of vascular access device*; Severe protein-energy malnutrition (HCC) Allergies Active Allergy Reactions Criticality Noted Date Comments Amoxicillin Edema airway High 01/22/2003 Oxybutynin 03/25/2023 Mouth ulcers Sulfa Antibiotics Edema airway High 08/15/2006 documented as of this encounter (statuses as of 07/24/2023) Medications Medication Sig Dispensed Refills Start Date [...] 12/15/2022 Active Vitamin D (Ergocalciferol) 1.25 MG (89594 UT) Oral Capsule (Drisdol)Indication s:Diarrhea due to [...] for Nausea. 90 Tablet 1 04/25/2023 Active Promethazine HCl 25 MG Oral Tablet [...] Cough. 120 mL 0 06/28/2023 Active Nystatin 500230 UNIT/GM External Cream APPLY TO AFFECTED AREA TWICE A DAY 30 g 2 06/30/2023 Active Diphenoxylate-Atrop ine 2.5-0.025 MG Oral Tablet (Lomotil)Indication s:Migraine variant TAKE ONE TABLET BY MOUTH 4 TIMES DAILY NEEDED FOR DAIRRHEA 60 Tablet 0 07/05/2023 Active OLANZapine 5 MG Oral Tablet Disintegrating (zyPREXA zyDIS) Place 1 Tablet on tongue in the morning. 30 Tablet 5 07/04/2023 Active Yzsthmmnci-CNGY-Tgx feine 50-325-40 MG Oral Tablet (Fioricet)Indicatio ns:Migraine variant TAKE ONE TABLET EVERY 6 HOURS NEEDED FOR PAIN 90 Tablet 1 07/14/2023 Active documented as of this encounter (statuses as of 07/24/2023) Active Problems Problem Noted Date Diagnosed Date [...] as of this encounter (statuses as of 07/24/2023) Resolved Problems Problem Noted Date Diagnosed Date Resolved Date Old [place] (myocardial infarction) 03/01/2023 03/01/2023 Atherosclerosis of [place] co ronary artery without angina pectoris 02/08/2022 [...] malnutrition 09/28/2018 09/23/2021 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/2021 GUARDIAN FAMILY MEMBER demyelination 02/06/2017 05/02/2018 GUARDIAN FAMILY MEMBER demyelination 02/06/2017 07/09/2019 Iron deficiency anemia 06/28/201109/20 Overview: ICD-10 update of inactive term Iron deficiency anemia 06/28/201109/20 Overview: ICD-10 update of inactive term Iron deficiency anemia pat paulino to inadequate dietary iron intake 09/26/2008 3 Infected postoperative seroma 06/02/2003 09/20/2012 PANNICULITIS, UNSP SITE 05/14/200311/2022 documented as of this encounter (statuses as of 07/24/2023) Immunizations Name Administration Dates Next Due COVID-19 mRNA, LNP-s, No Pre serve, 2-Dose Series (Brainpark) 02/16/2021,11/25/2020,11/01/2020 COVID-19, MRNA-LNP, 23-24, P F, 30 MCG/0.3 mL, 12 YRS AND ABOVE, IM (Ship Mate-Comirnat) 04/10/2023 Covid-19, Mrna, Lnp-s, Pf, B ivalent, 30 Mcg, IM, 12 yrs and above (Pfizer) 04/12/2022 Pneumococcal Conjugate Vacci ne, 20-valent ([id number]) 12/10/2021 Pneumococcal Polysaccharide PPV23 (Pneumovax) 07/21/2009 Seasonal [...] of this encounter Nursing Notes * Sis Castle, MELI - 07/24/2023 12:07 PM EST Chair 6. Patient arrived for PICC dressing change and lab draw. Patient is complaining of a discomfort at site and its a little red, patient stated she took old antibiotics that she had at home, I advised her that's not recommended to take antibiotics for something they are not prescribed for. Patient stated it helped and it looks and feels better. PICC was flushed and dressing changed. Was not able to get labs off of PICC, did had blood return but could not get enough for a waste tube. Lab came over to draw Peripheral labs. Patient tolerated procedure well. Discharged in stable condition. documented in this encounter Plan of Treatment Upcoming Encounters Date Type Department Care Team (Late st Contact Info) Description 07/31/2023 10:45 AM EST Immunization/Injection Hematology/Oncology Treatment, [place] [address] [place] [id number] Nurse, [facility] [place] 200 [place] [id number] 07/31/2023 1:30 PM EST Imaging Radiology [address], [address] [address] 08/12/2023 8:00 AM EST Imaging Radiology [address], [address] [place] [id number] 08/12/2023 8:45 AM EST Imaging Radiology [address], [address] [address] 08/14/2023 11:30 AM EST Telemedicine Psychiatry, [place] [address] [place] [address] Alexis Serna MD [address] [place] [address] 08/15/2023 3:40 PM EST Office Visit Family Medicine [address] [phone] Evelyn Andrews MD [address] [place] [address] [place] [address] 08/25/2023 10:15 AM EST Telemedicine Urology Grace Martinez [address] [place] [address] Christopher Almonte MD [address] [place] [address] 7, Telemed [facility] Urology Ex Rm [address] [place] [address] 09/12/2023 3:20 PM EDT Office Visit Nephrology [address] [place] [address] Eliza Boles MD [address] [place] [address] 10/02/2023 9:20 AM EDT Office Visit Neurology [facility] 200 [facility] [place] [address] Aris Mohr MD 200 [facility] [place] [address] 10/17/2023 3:20 PM EDT Office Visit Gastroenterology, [facility] [address] [place] [address] Milind Yadav MD 132 [facility] [place] [address] Pending Results Name Type Priority Associated Diagnoses Date /Time CALCIUM, IONIZED Lab Routine Severe protein-energy malnutrition (HCC) 07/24/2023 12:02 PM EST Health Maintenance Due Date Last [...] Additional history exists CKD HGB USE SMARTSET 91581 06/12/202406/12, 03/13/2023, 03/13/2023, Additional history exists CKD PHOS USE SMARTSET 50616 07/24/202406/27, 06/20/2023, 06/12/2023, Additional history exists DTaP,Tdap,and [...] this encounter Medical Devices Implanted Type Area Habilitation Assistant Device Identifier Shelf Expiration Date Model / Serial / Lot Stent Axios 20mm - [id number] Implanted:Qty: 1 on 01/04/2021 by Leyda Garcia MD at OR [facility] N/A: Stomach [employer] : ENDOSCOPY 11/20/2021 [id number] / / [id number] documented as of this encounter Procedures Procedure Name Priority Date/Time Associated Diagnosis Comments COMPREHENSIVE METABOLIC PANEL Routine 07/24/2023 12:02 PM EST Severe protein-energy malnutrition (HCC) PHOSPHORUS Routine 07/24/2023 12:02 PM EST Severe protein-energy malnutrition (HCC) MAGNESIUM Routine 07/24/2023 12:02 PM EST Severe protein-energy malnutrition (HCC) documented in this encounter Results * PHOSPHORUS (07/24/2023 12:02 PM EST) Phosphorus 2.8 2.5 - 4.8 mg/dL 07/24/2023 1:00 PM EST [facility] 56- Blood Venous blood specimen / Unknown Venipuncture / Unknown 07/24/2023 12:02 PM EST 07/24/2023 12:02 PM EST [facility] Performing Organization Address City/[facility]/ZIP Co de Phone Number [place] [phone] [place] [address] * MAGNESIUM (07/24/2023 12:02 PM EST) Magnesium 1.5 1.5 - 2.6 mg/dL 07/24/2023 1:00 PM EST [facility] 56 Blood Venous blood specimen / Unknown Venipuncture / Unknown 07/24/2023 12:02 PM EST 07/24/2023 12:02 PM EST Mayra Caitlin [facility] LAB BLOOD ORDERAB LES [facility] 56[facility] [address] [place] [address] * (ABNORMAL) COMPREHENSIVE METABOLIC PANEL (07/24/2023 12:02 PM EST) BUN 34(H) 6 - 20 mg/dL 07/24/2023 1:00 PM EST [facility] 56- Creatinine 1.6(H) 0.5 - 1.0 mg/dL 07/24/2023 1:00 PM EST [facility] 56- Estimated Glomerular Filtration Rate 38(L) >=60 mL/min 07/24/2023 1:00 PM [facility] 56 Comment:eGFR is calculated b ased on the CKD-EPI 2020 equation Sodium 143 135 - 146 mmol/L 07/24/2023 1:00 PM [facility] 56 Potassium 3.6 3.5 - 5.1 mmol/L 07/24/2023 1:00 PM [facility] 56 Chloride 111(H) 98 - 107 mmol/L 07/24/2023 1:[address] CO2 21(L) 22 - 32 mmol/L 07/24/2023 1:[address] Anion Gap 11 7 - 15 mmol/L 07/24/2023 1:[address] Glucose 106 70 - 120 mg/dL 07/24/2023 1:[address] Albumin 2.9(L) 3.8 - 5.0 g/dL 07/24/2023 1:[address] AST 27 10 - 35 U/L 07/24/2023 1:[address] Alkaline Phosphatase 108 35 - 130 U/L 07/24/2023 1:[address] Bilirubin, Total 0.2 <=1.2 mg/dL 07/24/2023 1:00 PM [facility] 56 Calcium 8.0(L) 8.4 - 10.2 mg/dL 07/24/2023 1:[address] Protein 5.3(L) 6.0 - 8.3 g/dL 07/24/2023 1:00 PM [facility] 56 ALT 19 10 - 35 U/L 07/24/2023 1:00 PM [facility] 56 Blood Venous blood specimen / Unknown Venipuncture / Unknown 07/24/2023 12:02 PM EST 07/24/2023 12:02 PM EST Mayra Crook [facility] LAB BLOOD ORDERAB LES [facility] 56 [address] [place] [address] documented in this encounter Visit Diagnoses Diagnosis [...] Lock, PRN Other, IV Flush, Starting on Mon07/24/23 at 1127, Until Mon07/25/23 at 1126, For 24 hours, Do not flush if lock, PICC, or central line not in place; IV infusing or unable to flush. Given 07/24/2023 11:59 AM EST 500 Units Given 07/24/2023 11:57 AM EST 500 Units sodium chloride 0.9 % flush central line 10 mL 10 mL, IV Push, PRN Other, IV Flush, Starting on Mon07/24/23 at 1127, Until Mon07/25/23 at 1126, For 24 hours, Do not flush if lock, PICC, or central line not in place; IV infusing or unable to flush. Given 07/24/2023 11:59 AM EST 10 mL Given 07/24/2023 11:57 AM EST 10 mL documented in this encounter Advance Directives Documents on File Type Date Recorded Patient Skin Specialist Expl anation POLST 01/03/2022 [place] OR [facility] FOR LIFE-SUSTAINING TREATMENT [...] Other - (no specific identity) Health Care Skin Specialist (appointed verbally by patient or by statute hierarchy) Rowdy Kraus Health Care Skin Specialist (appointed verbally by patient or by statute hierarchy) Care Teams Shot Packer Relationship Specialty Start Date End Date Evelyn Andrews MD [address] [place] [address] [place] [address] PCP - General Family Medicine 05/04/18 documented as of this encounter
--- OUTSIDE RECORDS SUMMARY | 2023-12-07 18:44 | External Medical Summary | Summary of Care ---
Author Name Unknown Organization [facility] Address [address] [place] [address] Phone [phone] Care Team Providers Care Electrical Technology Instructor Name Role Phone Evelyn Andrews MD Primary Care Prov ider Encounter Details Date Type Department Care Team (Late st Contact Info) Description 07/11/2023 9:40 AM EST Telemedicine Nutrition & Weight Management, [facility] [address] [place] [address] Vic Wilkerson, DO [address] [place] [address] Severe protein-calorie malnutrition (HCC)*; Iron deficiency anemia, unspecified iron deficiency anemia type; Diarrhea, unspecified type Allergies Active Allergy Reactions Criticality Noted Date Comments Amoxicillin Edema airway High 01/22/2003 Oxybutynin 03/25/2023 Mouth ulcers Sulfa Antibiotics Edema airway High 08/15/2006 documented as of this encounter (statuses as of 07/11/2023) Medications Medication Sig Dispensed Refills Start Date [...] 12/15/2022 Active Vitamin D (Ergocalciferol) 1.25 MG (55954 UT) Oral Capsule (Drisdol)Indication s:Diarrhea due to [...] for Nausea. 90 Tablet 1 04/25/2023 Active Scyqtlkpwf-HXTG-Lpq feine 50-325-40 MG Oral Tablet (Fioricet)Indicatio ns:Migraine [...] Cough. 120 mL 0 06/28/2023 Active Nystatin 374803 UNIT/GM External Cream APPLY TO AFFECTED AREA [...] as of this encounter (statuses as of 07/11/2023) Active Problems Problem Noted Date Diagnosed Date [...] as of this encounter (statuses as of 07/11/2023) Resolved Problems Problem Noted Date Diagnosed Date Resolved Date Old [place] (myocardial infarction) 03/01/2023 03/01/2023 Atherosclerosis of [place] co ronary artery without angina pectoris 02/08/2022 03/08/2022 Hyperparathyroidism 10/15/2021 03/01/20 23 Decreased GFR 08/17/2021 03/01/2023 Nephrolithiasis 02/16/2021 01/27/2022 Overview: Cysto 11/24/21 PFO with atrial septal aneurysm 05/16/2019 06/07/2022 Iron deficiency anemia 04/24/201911/29 Overview: More specific on PL Protein-calorie malnutrition 09/28/2018 09/23/2021 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/2021 APPLIED EXERCISE PHYSIOLOGIST demyelination 02/06/2017 05/02/2018 APPLIED EXERCISE PHYSIOLOGIST demyelination 02/06/2017 07/09/2019 Iron deficiency anemia 06/28/201109/20 Overview: ICD-10 update of inactive term Iron deficiency anemia 06/28/201109/20 Overview: ICD-10 update of inactive term Iron deficiency anemia pat paulino to inadequate dietary iron intake 09/26/2008 3 Infected postoperative seroma 06/02/2003 09/20/2012 PANNICULITIS, UNSP SITE 05/14/200311/2022 documented as of this encounter (statuses as of 07/11/2023) Immunizations Name Administration Dates Next Due COVID-19 mRNA, LNP-s, No Pre serve, 2-Dose Series (coresystems) 02/16/2021,11/25/2020,11/01/2020 COVID-19, MRNA-LNP, 23-24, P F, 30 MCG/0.3 mL, 12 YRS AND ABOVE, IM (PFIZER-Comirnaty) 04/10/2023 Covid-19, Mrna, Lnp-s, Pf, B ivalent, 30 Mcg, IM, 12 yrs and above (Pfizer) 04/12/2022 Pneumococcal Conjugate Vacci ne, 20-valent ([id number]) 12/10/2021 Pneumococcal Polysaccharide PPV23 (Pneumovax) 07/21/2009 Seasonal [...] of this encounter Progress Notes * Vic Wilkerson DO - 07/11/2023 9:40 AM EST Evelyn Mobley MD After connecting to the patient via telephone, the patient was identified by name and date of . Patient was then informed that this was a telephone call only visit. The patient agreed to participate. Visit Disposition: Routine follow-up Total call duration was 22 minutes. Your patient was seen today in the Nutrition Clinic. Please take note of the following information. Nutrition Diagnosis: SEVERE Protein/Calorie Malnutrition Weight 76 pounds-- Did not get weighed this week ROS: (+) Migraine (+) Diarrhea LMP 04/05/2007 Wt Readings from Last 6 Encounters: 06/20/23 34.5 kg (76 lb) 06/14/23 33.1 kg (73 lb) 04/24/23 33.6 kg (74 lb) 04/03/23 34.4 kg (75 lb 12.8 oz) 03/25/23 34 kg (75 lb 1 oz) 03/13/23 32.8 kg (72 lb 6.4 oz) Current Outpatient Medications Medication Sig Dispense [...] Apply periurethrally as directed.. 42.5 g 2 Omeprazole 20 MG Oral Capsule Delayed Release (PriLOSEC) TAKE 1 CAPSULE BY MOUTH EVERY DAY IN THE MORNING 90 Capsule 5 Dicyclomine HCl 20 MG Oral Tablet (Bentyl) TAKE 1 TABLET BY MOUTH IN THE AM, AT NOON, IN THE PM ANDAT BEDTIME NEEDED FOR ABDOMINAL PAIN Strength: 20 mg 480 Tablet 1 Lidocaine 4 % External Patch (Aspercreme) Place 1 Patch every 12 hours topically on the skin in themorning - remove old patch first. Do not start before December 16, 2022. 30 Patch 0 Zinc Sulfate 220 (50 Zn) MG Oral Capsule Take 1 Capsule by mouth in the morning. 30 Capsule 0 Vitamin D (Ergocalciferol) 1.25 MG (36300 UT) Oral Capsule (Drisdol) TAKE ONE CAPSULE [...] mouth in the morning. 90 Tablet 3 Mirtazapine 45 MG Oral Tablet (Remeron) Take 1 Tablet by mouth at bedtime. 30 Tablet 3 Ondansetron 4 MG Oral Tablet Disintegrating (Zofran) Place 1 Tablet on tongue every 8 hours as needed for Nausea. 90 Tablet 1 Pbxinyqgyw-YDNE-Qxzrthdu 50-325-40 MG Oral Tablet (Fioricet) TAKE ONE TABLET EVERY 6 HOURS NEEDED FOR PAIN 90 Tablet 1 Promethazine HCl 25 MG Oral Tablet (Phenergan) Take 1 Tablet by mouth every 8 hours as needed for Nausea. 30 Tablet 3 predniSONE 20 MG Oral Tablet (Deltasone) Take 80 mg for 2 days, 60 mg for 2 days, 40 mg for 2 days,20 mg for 2 days then 10 mg for 2 days 25 Tablet 0 ALPRAZolam 0.25 MG Oral Tablet (xaNAX) Take 1 Tablet by mouth at bedtime as needed for Sleep. 30 Tablet 3 Rizatriptan Benzoate 10 MG Oral Tablet (Maxalt) TAKE 1 TAB BY MOUTH DAILY NEEDED FOR MIGRAINE. 10 Tablet 5 Furosemide 20 MG Oral Tablet (Lasix) Take 1 Tablet by mouth in the morning. 7 Tablet 0 guaiFENesin-Codeine 100-10 MG/5ML Oral Syrup (Robitussin AC) Take 5 mL by mouth every 4 hours as needed for Cough. 120 mL 0 Nystatin 927698 UNIT/GM External Cream APPLY TO AFFECTED AREA TWICE A DAY 30 g 2 Diphenoxylate-Atropine 2.5-0.025 MG Oral Tablet (Lomotil) TAKE ONE TABLET BY MOUTH 4 TIMES DAILY ASNEEDED FOR DAIRRHEA 60 Tablet 0 OLANZapine 5 MG Oral Tablet Disintegrating (zyPREXA zyDIS) Place 1 Tablet on tongue in the morning.30 Tablet 5 No current facility-administered medications for this visit. Diet: regular Nutrition Support: NONE Venous Access: None Enteral Access: NONE Review of Systems: -- Tolerating TPN LMP 04/05/2007 Physical Exam Severe Protein Calorie Malnutrition: -- Continue TPN --Will continue lipids at 80 grams --Continue protein at 80 grams -- Will continue cycle to 12 hours -- Labs this week or next Monday -- Will continue Octreotide at 400 mcg Given her current weight and the amount of calories she is receiving from her TPN, not sure why sheis not gaining weight?? To consider referral to [facility] or [place] for a second opinion. 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 Continue Remeron --CDS Vic Wilkerson DO, FACN, FACP Director, [facility] Convertible Sofa Bedspring Tester, Department of Gastroenterology/Nutrition documented in this encounter Plan of Treatment Upcoming Encounters Date Type Department Care Team (Late st Contact Info) Description 07/17/2023 11:00 AM EST Immunization/Injection Hematology/Oncology Treatment, [address] [place] [address] Nurse, Med 4 [address] [facility] [place] [address] 07/18/2023 11:40 AM EST Office Visit Family [address] [phone] Evelyn Andrews MD [address] [place] [address] [place] [address] 07/24/2023 11:15 AM EST Immunization/Injection Hematology/Oncology Treatment, [address] [place] [address] Nurse, Med 4 [address] [facility] [place] [address] 07/31/2023 10:45 AM EST Immunization/Injection Hematology/Oncology Treatment, [address] [address] Nurse, Med 4 [address] [facility] [place] [address] 07/31/2023 1:30 PM EST Imaging Radiology [facility] 1st [facility], [place] [address] [facility] [place] [address] 08/14/2023 11:30 AM EST Telemedicine Psychiatry, [place] [address] [place], [place] [phone] Alexis Serna MD [address] [place] [address] 08/15/2023 3:40 PM EST Office Visit Family Medicine [address] [place] [phone] Evelyn Andrews MD [address] [place] [address] [place] [address] 08/25/2023 10:15 AM EST Telemedicine Urology [place] Martinez [address] [place] [address] Christopher Almonte MD [address] [place] [address] 7, Telemed [facility] Urology Ex Rm [address] [place] [address] 09/12/2023 3:20 PM EDT Office Visit Nephrology [address] [place] [address] Eliza Boles MD [address] [place], [place] [address] [address] 10/17/2023 3:20 PM EDT Office Visit Gastroenterology, [facility] [address] [address] Milind Yadav MD 132 [facility] [place] [address] Health Maintenance Due Date Last Done Comments [...] Additional history exists CKD HGB USE SMARTSET 23071 06/12/202406/12, 03/13/2023, 03/13/2023, Additional history exists CKD PHOS USE SMARTSET 66927 06/20/202405/27, 06/12/2023, 05/22/2023, Additional history exists DTaP,Tdap,and [...] this encounter Medical Devices Implanted Type Area Windrower Operator Device Identifier Shelf Expiration Date Model / Serial / Lot Stent Axios 20mm - [id number] Implanted:Qty: 1 on 01/04/2021 by Leyda Garcia MD at [facility] N/A: Stomach [employer] : ENDOSCOPY 11/20/2021 [id number] / / [id number] documented as of this encounter Visit Diagnoses Diagnosis Severe protein-calorie malnutrition (HCC)- Primary Other severe protein-calorie malnutrition Iron deficiency anemia, unspecified iron deficiency anemia type Diarrhea, unspecified type documented in this encounter Advance Directives Documents on File Type Date Recorded Patient Electronics Engineering Technician Expl anation POLST 01/03/2022 [place] OR [facility] FOR LIFE-SUSTAINING TREATMENT [...] Other - (no specific identity) Health Care Electronics Engineering Technician (appointed verbally by patient or by statute hierarchy) Rowdy Hogue Sibling Health Care Electronics Engineering Technician (appointed verbally by patient or by statute hierarchy) Care Teams Electrical Technology Instructor Relationship Specialty Start Date End Date Evelyn Andrews MD [address] [place] [address] [place] [address] PCP - General Family Medicine 05/04/18 documented as of this encounter
--- OUTSIDE RECORDS SUMMARY | 2023-12-07 18:44 | External Medical Summary | Summary of Care ---
Author Name Unknown Organization [facility] Address [address] [place] [address] Phone [phone] Care Team Providers Care Leasing Property Manager Name Role Phone Evelyn Andrews MD Primary Care Prov ider Encounter Details Date Type Department Care Team (Late st Contact Info) Description 07/11/2023 9:40 AM EST Telemedicine Nutrition & Weight Management, [facility] [address] [place] [address] Vic Wilkerson, DO [address] [place] [address] Severe protein-calorie malnutrition (HCC)*; Iron [...] 12/15/2022 Active Vitamin D (Ergocalciferol) 1.25 MG (93542 UT) Oral Capsule (Drisdol)Indication s:Diarrhea due to [...] for Nausea. 90 Tablet 1 04/25/2023 Active Qrdrehpddk-QRJK-Ytm feine 50-325-40 MG Oral Tablet (Fioricet)Indicatio ns:Migraine [...] Cough. 120 mL 0 06/28/2023 Active Nystatin 730726 UNIT/GM External Cream APPLY TO AFFECTED AREA [...] CA (myocardial infarction) 03/01/2023 03/01/2023 Atherosclerosis of [place] co ronary artery without angina pectoris 02/08/2022 03/08/2022 Hyperparathyroidism 10/15/2021 03/01/20 23 Decreased GFR 08/17/2021 03/01/2023 Nephrolithiasis 02/16/2021 01/27/2022 Overview: Cysto 11/24/21 PFO with atrial septal aneurysm 05/16/2019 06/07/2022 Iron deficiency anemia 04/24/201911/29 Overview: More specific on PL Protein-calorie malnutrition 09/28/2018 09/23/2021 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/2021 OSTEOPATHIC RESIDENT demyelination 02/06/2017 05/02/2018 OSTEOPATHIC RESIDENT demyelination 02/06/2017 07/09/2019 Iron deficiency anemia 06/28/201109/20 [...] mRNA, LNP-s, No Pre serve, 2-Dose Series ([employer]) 02/16/2021,11/25/2020,11/01/2020 COVID-19, MRNA-LNP, 23-24, P F, 30 MCG/0.3 mL, 12 YRS AND ABOVE, IM (PFIZER-Comirnaty) 04/10/2023 Covid-19, Mrna, Lnp-s, Pf, B ivalent, 30 Mcg, IM, 12 yrs and above (Pfizer) 04/12/2022 Pneumococcal Conjugate Vacci ne, 20-valent ([id number]) 12/10/2021 Pneumococcal Polysaccharide PPV23 (Pneumovax) 07/21/2009 Seasonal [...] Capsule 0 Vitamin D (Ergocalciferol) 1.25 MG (83632 UT) Oral Capsule (Drisdol) TAKE ONE CAPSULE [...] as needed for Nausea. 90 Tablet 1 Oghnycjyht-FCDC-Qzvpotca 50-325-40 MG Oral Tablet (Fioricet) TAKE ONE [...] needed for Cough. 120 mL 0 Nystatin 153871 UNIT/GM External Cream APPLY TO AFFECTED AREA [...] -- Continue TPN --Will continue lipids at 85 grams --Continue protein at 80 grams -- Will continue cycle to 12 hours -- Labs this week or next Monday -- Will continue Octreotide at 400 mcg Given her current weight and the amount of calories she is receiving from her TPN, not sure why sheis not gaining weight?? To consider referral to [facility] or [place] for a second opinion. 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 Continue Remeron --CDS Vic Wilkerson DO, FACN, FACP Director, [facility] Wra[facility] Supervisor, Department of Gastroenterology/Nutrition documented in this encounter Plan of Treatment Upcoming Encounters Date Type Department Care Team (Late st Contact Info) Description 07/17/2023 11:00 AM EST Immunization/Injection Hematology/Oncology Treatment, [address] [place] [address] Nurse, Med 4 200 [facility] [place] [address] 07/18/2023 11:40 AM EST Office Visit Family [address] [phone] Evelyn Andrews MD [address] [place] [address] [place] [address] 07/24/2023 11:15 AM EST Immunization/Injection Hematology/Oncology Treatment, [address] [place] [address] Nurse, Med 4 200 [facility] [place] [address] 07/31/2023 10:45 AM EST Immunization/Injection Hematology/On[address], [address] [address] Nurse, Med 4 200 [facility] [place] [address] 07/31/2023 1:30 PM EST Imaging Radiology [facility], [place] [address] [facility] [place] [address] 08/14/2023 11:30 AM EST Telemedicine Psychiatry, [place] [address], [place] [phone] Alexis Serna MD [address] [place] [address] 08/15/2023 3:40 PM EST Office Visit Family Medicine [address] [place] [address] Evelyn Andrews MD [address] [place] [address] [place] [address] 08/25/2023 10:15 AM EST Telemedicine Urology Y[place] Martinez [address] [place] [address] Christopher Almonte MD [address] [place] [address] 7, Telemed [facility] Urology Ex Rm [address] [place] [address] 09/12/2023 3:20 PM EDT Office Visit Nephrology [address] [place] [address] Eliza Boles MD [address] [place], [place] [address] [address] 10/17/2023 3:20 PM EDT Office Visit Gastroenterology, [facility] [address] [address] Milind Yadav MD 132 [facility] [place] [address] Health Maintenance Due Date Last Done Comments [...] Additional history exists CKD HGB USE SMARTSET 50625 06/12/202406/12, 03/13/2023, 03/13/2023, Additional history exists CKD PHOS USE SMARTSET 66058 06/20/202405/27, 06/12/2023, 05/22/2023, Additional history exists DTaP,Tdap,and [...] encounter Medical Devices Implanted Type Area Manager Media Device Identifier Shelf Expiration Date Model / Serial / Lot Stent Axios 20mm - [id number] Implanted:Qty: 1 on 01/04/2021 by Leyda Garcia MD at OR [facility] N/A: Stomach [employer] : ENDOSCOPY 11/20/2021 [id number] / / [id number] documented as of this encounter Visit Diagnoses Diagnosis Severe protein-calorie malnutrition (HCC)- Primary Other severe protein-calorie malnutrition Iron deficiency anemia, unspecified iron deficiency anemia type Diarrhea, unspecified type documented in this encounter Advance Directives Documents on File Type Date Recorded Patient Hop Strainer Expl anation POLST 01/03/2022 [place] OR [facility] FOR LIFE-SUSTAINING TREATMENT Latest Code Status [...] - (no specific identity) Health Care Hop Strainer (appointed verbally by patient or by statute hierarchy) Rowdy Hogue Sibling Health Care Hop Strainer (appointed verbally by patient or by statute hierarchy) Care Teams Leasing Property Manager Relationship Specialty Start Date End Date Evelyn Andrews MD [address] [place] [address] [place] [address] PCP - General Family Medicine 05/04/18 documented as of this encounter
--- OUTSIDE RECORDS SUMMARY | 2023-12-07 18:44 | External Medical Summary | Summary of Care ---
Author Name Unknown Organization [facility] Address [address] [place] [address] Phone [phone] Care Team Providers Care Business Law Instructor Name Role Phone Evelyn Andrews MD Primary Care Prov ider Reason for Visit * Reason Comments eRx-Medication Refill Encounter Details Date Type Department Care Team (Late st Contact Info) Description 07/25/2023 Refill Family Medicine [address] [phone] Evelyn Andrews MD [address] [place] [address] [place] [address] Intractable vomiting with nausea Allergies [...] 23 Active Vitamin D (Ergocalciferol) 1.25 MG (46617 UT) Oral Capsule (Drisdol)Indicatio ns:Diarrhea due to [...] 120 mL 0 06/28/19 24 Active Nystatin 874676 UNIT/GM External Cream APPLY TO AFFECTED AREA [...] morning. 30 Tablet 5 07/04/19 24 Active Pozplhibvq-TARH-Cc ffeine 50-325-40 MG Oral Tablet (Fioricet)Indicati ons:Migraine variant TAKE ONE TABLET EVERY 6 HOURS NEEDED FOR PAIN 90 Tablet 1 07/14/19 24 Active Ondansetron 4 MG Oral Tablet Disintegrating (Zofran)Indication s:Intractable vomiting with nausea PLACE 1 TABLET ON TONGUE EVERY 8 HOURS NEEDED FOR NAUSEA. 90 Tablet 1 07/26/19 24 Active Ondansetron 4 MG Oral Tablet Disintegrating (Zofran)Indication s:Intractable vomiting with nausea Place 1 Tablet on tongue every 8 hours as needed for Nausea. 90 Tablet 1 04/25/20 23 024 Discontinued documented as of this [...] [place] (myocardial infarction) 03/01/2023 03/01/2023 Atherosclerosis of [place] co ronary artery without angina pectoris 02/08/2022 [...] malnutrition 09/28/2018 09/23/2021 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/2021 DEEP SUBMERGENCE VEHICLE OPERATOR demyelination 02/06/2017 05/02/2018 DEEP SUBMERGENCE VEHICLE OPERATOR demyelination 02/06/2017 07/09/2019 Iron deficiency anemia 06/28/201109/20 Overview: ICD-10 update of inactive term Iron deficiency anemia 06/28/201109/20 Overview: ICD-10 update of inactive term Iron deficiency anemia pat paulino to inadequate dietary iron intake 09/26/2008 3 Infected postoperative seroma 06/02/2003 09/20/2012 PANNICULITIS, [facility] SITE 05/14/200311/2022 documented as of this encounter (statuses as of 07/26/2023) Immunizations Name Administration Dates Next Due COVID-19 mRNA, LNP-s, No Pre serve, 2-Dose Series ([employer]) 02/16/2021,11/25/2020,11/01/2020 COVID-19, MRNA-LNP, 23-24, P F, 30 MCG/0.3 mL, 12 YRS AND ABOVE, IM ([facility]) 04/10/2023 Covid-19, Mrna, Lnp-s, Pf, B ivalent, 30 Mcg, IM, 12 yrs and above (Pfizer) 04/12/2022 Pneumococcal Conjugate Vacci ne, 20-valent ([id number]) 12/10/2021 Pneumococcal Polysaccharide PPV23 (Pneumovax) 07/21/2009 Seasonal [...] encounter Miscellaneous Notes * Telephone Encounter - Seven Uriarte, [facility] - 07/26/2023 12:14 PM EST Signed Prescriptions: Disp Refills Ondansetron 4 MG Oral Tablet Disintegratin*90 Tab*1 Sig: PLACE 1TABLET ON TONGUE EVERY 8 HOURS NEEDED FOR NAUSEA.Authorizing Provider: EVELYN ANDREWSOrderemani User: SEVEN URIARTE documented in this encounter Plan of Treatment Upcoming Encounters Date Type Department Care Team (Late st Contact Info) Description 07/31/2023 10:45 AM EST Immunization/Injection Hematology/Oncology Treatment, [place] [address] [place] [address] Nurse, Med 4 [address] [place] [address] 07/31/2023 1:30 PM EST Imaging Radiology [address], [address] [address] 08/12/2023 8:00 AM EST Imaging Radiology [address] [address] 08/12/2023 8:45 AM EST Imaging Radiology [address], [address] [address] 08/14/2023 11:30 AM EST Telemedicine Psychiatry, [place] [address] [place] [address] Alexis Serna MD [address] [place] [address] 08/15/2023 3:40 PM EST Office Visit Family Medicine [address] [phone] Evelyn Andrews MD [address] [place] [address] [place] [address] 08/25/2023 10:15 AM EST Telemedicine Urology [place] Martinez [address] [place] [address] Christopher Almonte MD [address] [place] [address] 7, Telemed [facility] Urology Ex Rm [address] [place] [address] 09/12/2023 3:20 PM EDT Office Visit Nephrology [address] [place] [phone] Eliza Boles MD 200 [facility] [place] [facility] [place] [address] 10/02/2023 9:20 AM EDT Office Visit Neurology [facility] 200 [facility] [place] [address] Aris Mohr MD 200 [facility] [place] [address] 10/17/2023 3:20 PM EDT Office Visit Gastroenterology, [facility] [address] [place] [address] Milind Yadav MD 132 [facility] [place] [address] Health Maintenance Due Date Last Done Comments [...] Additional history exists CKD HGB USE SMARTSET 90290 06/12/202406/12, 03/13/2023, 03/13/2023, Additional history exists CKD PHOS USE SMARTSET 90086 07/24/202406/27, 06/20/2023, 06/12/2023, Additional history exists DTaP,Tdap,and [...] this encounter Medical Devices Implanted Type Area Head Bookkeeper Device Identifier Shelf Expiration Date Model / Serial / Lot Stent Axios 20mm - [id number] Implanted:Qty: 1 on 01/04/2021 by Leyda Garcia MD at OR [facility] N/A: Stomach [employer] : ENDOSCOPY 11/20/2021 [id number] / / [id number] documented as of this encounter Visit Diagnoses Diagnosis Intractable vomiting with nausea documented in this encounter Advance Directives Documents on File Type Date Recorded Patient 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
--- OUTSIDE RECORDS SUMMARY | 2023-12-07 18:44 | External Medical Summary ---
Author Name Unknown Address Unknown Organization K09:[facility] [address] Laboratory Report Ordering Provider Test Date Status TONY RAMIREZ 07/24/2023 12:02:44 Final Observation Date Value Abnormality Reference (Units ) Status Magnesium 07/24/2023 12:02:44 1.5 1.5-2.6 (m g/dL) Final Performing Location [facility] [place] [address]
--- OUTSIDE RECORDS SUMMARY | 2023-12-07 18:44 | External Medical Summary | Summary of Care ---
Author Name Unknown Organization [facility] Address [address] [place] [address] Phone [phone] Care Team Providers Care Resident In Diagnostic Radiology Name Role Phone Evelyn Andrews MD Primary Care Prov ider Reason for Visit * Reason Onset Date Comments Medication Refill 07/12/2023 Encounter Details Date Type Department Care Team (Late st Contact Info) Description 07/12/2023 Refill Family [address] [phone] Evelyn nAdrews MD [address] [place] [address] [place] [address] Migraine variant Allergies Active Allergy Reactions Criticality Noted Date Comments Amoxicillin Edema airway High 01/22/2003 Oxybutynin 03/25/2023 Mouth ulcers Sulfa Antibiotics Edema airway High 08/15/2006 documented as of this encounter (statuses as of 07/14/2023) Medications Medication Sig Dispensed Refills Start Date [...] as directed.. 42.5 g 2 2 Active Omeprazole 20 MG Oral Capsule Delayed Release (PriLOSEC) TAKE 1 CAPSULE BY MOUTH EVERY DAY IN THE MORNING 90 Capsule 5 3 Active Dicyclomine HCl 20 MG Oral Tablet (Bentyl)Indications :Nausea and vomiting,Epigastric pain TAKE 1 TABLET BY MOUTH IN THE AM, AT NOON, IN THE PM AND AT BEDTIME NEEDED FOR ABDOMINAL PAIN Strength: 20 mg 480 Tablet 1 3 Active Lidocaine 4 % External Patch (Aspercreme) Place 1 Patch every 12 hours topically on the skin in the morning - remove old patch first. Do not start before December 16, 2022. 30 Patch 0 3 Active Zinc Sulfate 220 (50 Zn) MG Oral Capsule Take 1 Capsule by mouth in the morning. 30 Capsule 0 3 Active Vitamin D (Ergocalciferol) 1.25 MG (01962 UT) Oral Capsule (Drisdol)Indication s:Diarrhea due to [...] the morning. 90 Tablet 3 3 Active Mirtazapine 45 MG Oral Tablet (Remeron)Indication s:Recurrent major depressive disorder, in partial remission (HCC) Take 1 Tablet by mouth at bedtime. 30 Tablet 3 3 Active Ondansetron 4 MG Oral Tablet Disintegrating (Zofran)Indications :Intractable vomiting with nausea Place 1 Tablet on tongue every 8 hours as needed for Nausea. 90 Tablet 1 3 Active Promethazine HCl 25 MG Oral Tablet (Phenergan)Indicati ons:Nausea Take 1 Tablet by mouth every 8 hours as needed for Nausea. 30 Tablet 3 3 Active predniSONE 20 MG Oral Tablet (Deltasone) Take 80 mg for 2 days, 60 mg for 2 days, 40 mg for 2 days, 20 mg for 2 days then 10 mg for 2 days 25 Tablet 0 3 Active ALPRAZolam 0.25 MG Oral Tablet [...] the morning. 7 Tablet 0 4 Active guaiFENesin-Codeine 100-10 MG/5ML Oral Syrup (Robitussin AC)Indications:COVI D-19 Take 5 mL by mouth every 4 hours as needed for Cough. 120 mL 0 4 Active Nystatin 287904 UNIT/GM External Cream APPLY TO AFFECTED AREA TWICE A DAY 30 g 2 4 Active Diphenoxylate-Atrop ine 2.5-0.025 MG Oral Tablet (Lomotil)Indication s:Migraine variant TAKE ONE TABLET BY MOUTH 4 TIMES DAILY NEEDED FOR DAIRRHEA 60 Tablet 0 4 Active OLANZapine 5 MG Oral Tablet Disintegrating (zyPREXA zyDIS) Place 1 Tablet on tongue in the morning. 30 Tablet 5 4 Active Krpyrltgri-FRDU-Cyk feine 50-325-40 MG Oral Tablet (Fioricet)Indicatio ns:Migraine variant TAKE ONE TABLET EVERY 6 HOURS NEEDED FOR PAIN 90 Tablet 1 4 Active Nbltvulnue-NMPK-Knz feine 50-325-40 MG Oral Tablet (Fioricet)Indicatio ns:Migraine variant TAKE ONE TABLET EVERY 6 HOURS NEEDED FOR PAIN 90 Tablet 1 3 07/12/19 24 Discontinu ed(Refill) documented as of this encounter (statuses as of 07/14/2023) Active Problems Problem Noted Date Diagnosed Date [...] as of this encounter (statuses as of 07/14/2023) Resolved Problems Problem Noted Date Diagnosed Date Resolved Date Old MA (myocardial infarction) 03/01/2023 03/01/2023 Atherosclerosis of [place] co ronary artery without angina pectoris 02/08/2022 [...] 09/28/2018 09/23/2021 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/2021 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 05/02/2018 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 07/09/2019 Iron deficiency anemia 06/28/201109/20 Overview: ICD-10 update of inactive term Iron deficiency anemia 06/28/201109/20 Overview: ICD-10 update of inactive term Iron deficiency anemia pat paulino to inadequate dietary iron intake 09/26/2008 3 Infected postoperative seroma 06/02/2003 09/20/2012 PANNICULITIS, [facility] SITE 05/14/200311/2022 documented as of this encounter (statuses as of 07/14/2023) Immunizations Name Administration Dates Next Due COVID-19 mRNA, LNP-s, No Pre serve, 2-Dose Series ([employer]) 02/16/2021,11/25/2020,11/01/2020 COVID-19, MRNA-LNP, 23-24, P F, 30 MCG/0.3 mL, 12 YRS AND ABOVE, IM ([facility]) 04/10/2023 Covid-19, Mrna, Lnp-s, Pf, B ivalent, 30 Mcg, IM, 12 yrs and above (Pfizer) 04/12/2022 Pneumococcal Conjugate Vacci ne, 20-valent ([email or web address]) 12/10/2021 Pneumococcal Polysaccharide PPV23 (Pneumovax) 07/21/2009 Seasonal [...] Telephone Encounter - Evelyn Andrews MD - 07/14/2023 6:14 PM EST Signed Prescriptions: Disp Refills Iypopgkqqy-MGJA-Phmprcwy 50-325-40 MG Oral*90 Tab*1 Sig: TAKE ONE TABLET EVERY 6 HOURS NEEDED FOR PAIN Authorizing Provider: EVELYN ANDREWS * Telephone Encounter - Nieves Gross [facility] - 07/14/2023 7:53 AM ESTPending Prescriptions: Disp Refills Bnykzvvnmc-JVQU-Eaklphli 50-325-40 MG Oral*90 Tab*1 Sig: TAKE ONE TABLET EVERY 6 HOURS NEEDED FOR PAIN * Telephone Encounter - Nieves Gross [facility] - 07/14/2023 7:52 AM EST I have reviewed the patients controlled substance dispensing history in the Prescription Drug Monitoring Program in compliance with the [facility] regulations before prescribing a controlled substance. PDMP checked on 07/14/2023. Pending Prescriptions: Disp Refills Ofzxddcneg-ZJTS-Szhjxeei 50-325-40 MG Ora*90 Tab*1 Sig: TAKE ONE TABLET EVERY 6 HOURS NEEDED FOR PAIN Last Visit: 06/14/2023 (in office), 04/05/2022 (telemedicine) Next Visit: 07/18/2023 Date medication was last filled: 06/08/23 Date medication is due for refill: 06/29/23 Pharmacy: [facility] Is this request for a controlled substance? Yes and Urine Drug Screen Not completed Toxicology results: No results found. However, due to the size of the patient record, not all encounters were searched.Please check Results Review for a complete set of results. Please approve if appropriate. Thanks, Nieves Gross, PharmD Clinical Pharmacist [facility] ([facility]) (Formerly Telepharmacy) [phone] 07/14/2023 7:52 AM documented in this encounter Plan of Treatment Upcoming Encounters Date Type Department Care Team (Late st Contact Info) Description 07/17/2023 11:00 AM EST Immunization/Injection Hematology/Oncology Treatment, [address] [place] [address] Nurse, Med 4 200 [facility] [place] [address] 07/18/2023 11:40 AM EST Office Visit Family Medicine [address] [phone] Evelyn Anrdews MD [address] [place] [address] [place] [address] 07/24/2023 11:15 AM EST Immunization/Injection Hematology/Oncology Treatment, [address] [place] [address] Nurse, Med 4 200 [facility] [place] [address] 07/31/2023 10:45 AM EST Immunization/Injection Hematology/Oncology Treatment, [address] [place] [address] Nurse, Med 4 200 [facility] [place] [address] 07/31/2023 1:30 PM EST Imaging Radiology [facility] 1st Floor, [place] [address] [facility] [place] [address] 08/14/2023 11:30 AM EST Telemedicine Psychiatry, [place] [address] [place] [address] Alexis Serna MD [address] [place] [phone] 08/15/2023 3:40 PM EST Office Visit Family Medicine [address] [place] [phone] Evelyn Andrews MD [address] [place] [address] [place] [address] 08/25/2023 10:15 AM EST Telemedicine Urology [place] [address] [place] [address] Christopher Almonte MD [address] [place] [address] 7, Telemed [facility] Urology Ex Rm [address] [place] [address] 09/12/2023 3:20 PM EDT Office Visit Nephrology [address] [place] [address] Eliza [facility]oles MD 200 [facility] [address] 10/17/2023 3:20 PM EDT Office Visit Gastroenterology, [facility] [address] [address] Milind Yadav MD 132 [facility] [place] [address] Health Maintenance Due Date Last Done Comments [...] Additional history exists CKD HGB USE SMARTSET 33764 06/12/202406/12, 03/13/2023, 03/13/2023, Additional history exists CKD PHOS USE SMARTSET 72456 06/20/202405/27, 06/12/2023, 05/22/2023, Additional history exists DTaP,Tdap,and [...] this encounter Medical Devices Implanted Type Area Director Of Materials Device Identifier Shelf Expiration Date Model / Serial / Lot Stent Axios 20mm - [id number] Implanted:Qty: 1 on 01/04/2021 by Leyda Garcia MD at OR [facility] N/A: Stomach [employer] : ENDOSCOPY 11/20/2021 [id number] / / [id number] documented as of this encounter Visit Diagnoses Diagnosis Migraine variant Variants of migraine, not elsewhere classified, without mention of intractable migraine without mention of status migrainosus documented in this encounter Advance Directives Documents on File Type Date Recorded Patient Conservation Engineer Expl surekha CLANCY 01/03/2022 [place] OR [facility] FOR LIFE-SUSTAINING TREATMENT [...] Other - (no specific identity) Health Care Conservation Engineer (appointed verbally by patient or by statute hierarchy) Rowdy Mykel Sibling Health Care Conservation Engineer (appointed verbally by patient or by statute hierarchy) Care Teams Resident In Diagnostic Radiology Relationship Specialty Start Date End Date Evelyn Andrews MD [address] [place] [address] [place] [address] PCP - General Family Medicine 05/04/18 documented as of this encounter
--- OUTSIDE RECORDS SUMMARY | 2023-12-07 18:45 | External Medical Summary | Summary of Care ---
Author Name Unknown Organization [facility] Address [address] [place] [address] Phone [phone] Care Team Providers Care Lofter Name Role Phone Evelyn Andrews MD Primary Care Prov ider Reason for Visit * Reason Onset Date Comments TRIAGE 06/21/2023 Encounter Details Date Type Department Care Team (Late st Contact Info) Description 06/21/2023 [facility] [address] [place] [address] Hospital, [facility] [address] [place] [address] TRIAGE Allergies Active Allergy Reactions Criticality Noted Date Comments Amoxicillin Edema airway High 01/22/2003 Oxybutynin 03/25/2023 Mouth ulcers Sulfa Antibiotics Edema airway High 08/15/2006 documented as of this encounter (statuses as of 06/28/2023) Medications Medication Sig Dispensed Refills Start Date [...] 12/15/2022 Active Vitamin D (Ergocalciferol) 1.25 MG (81941 UT) Oral Capsule (Drisdol)Indication s:Diarrhea due to [...] the morning. 90 Tablet 3 04/03/2023 Active Nystatin 469865 UNIT/GM External Cream Apply topically to affected area 2 times a day. 30 g 2 04/03/2023 Active Mirtazapine 45 MG Oral Tablet (Remeron)Indication s:Recurrent major depressive disorder, in partial remission (HCC) Take 1 Tablet by mouth at bedtime. 30 Tablet 3 04/12/2023 Active Ondansetron 4 MG Oral Tablet Disintegrating (Zofran)Indications :Intractable vomiting with nausea Place 1 Tablet on tongue every 8 hours as needed for Nausea. 90 Tablet 1 04/25/2023 Active Cbfgemhbjp-YXMO-Vft feine 50-325-40 MG Oral Tablet (Fioricet)Indicatio ns:Migraine variant TAKE ONE TABLET EVERY 6 HOURS NEEDED FOR PAIN 90 Tablet 1 05/19/2023 Active OLANZapine 5 MG Oral Tablet (zyPREXA) Take 1 Tablet by mouth at bedtime. 30 Tablet 5 05/22/2023 Active Promethazine HCl 25 MG Oral Tablet [...] for Sleep. 30 Tablet 3 06/14/2023 Active Diphenoxylate-Atrop ine 2.5-0.025 MG Oral Tablet (Lomotil)Indication s:Migraine variant TAKE ONE TABLET BY MOUTH 4 TIMES DAILY NEEDED FOR DAIRRHEA 60 Tablet 0 06/14/2023 Active Rizatriptan Benzoate 10 MG Oral Tablet (Maxalt)Indications :Migraine variant TAKE 1 TAB BY MOUTH DAILY NEEDED FOR MIGRAINE. 10 Tablet 5 06/14/2023 Active documented as of this encounter (statuses as of 06/28/2023) Active Problems Problem Noted Date Diagnosed Date [...] as of this encounter (statuses as of 06/28/2023) Resolved Problems Problem Noted Date Diagnosed Date Resolved Date Old ID (myocardial infarction) 03/01/2023 03/01/2023 Atherosclerosis of [place] co ronary artery without angina pectoris 02/08/2022 03/08/2022 Hyperparathyroidism 10/15/2021 03/01/20 23 Decreased GFR 08/17/2021 03/01/2023 Nephrolithiasis 02/16/2021 01/27/2022 Overview: Cysto 11/24/21 PFO with atrial septal aneurysm 05/16/2019 06/07/2022 Iron deficiency anemia 04/24/201911/29 Overview: More specific on PL Protein-calorie malnutrition 09/28/2018 09/23/2021 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/2021 GENERAL STORE MANAGER demyelination 02/06/2017 05/02/2018 GENERAL STORE MANAGER demyelination 02/06/2017 07/09/2019 Iron deficiency anemia 06/28/201109/20 Overview: ICD-10 update of inactive term Iron deficiency anemia 06/28/201109/20 Overview: ICD-10 update of inactive term Iron deficiency anemia pat paulino to inadequate dietary iron intake 09/26/2008 3 Infected postoperative seroma 06/02/2003 09/20/2012 PANNICULITIS, UNSP SITE 05/14/2003 09/0 11/2022 documented as of this encounter (statuses as of 06/28/2023) Immunizations Name Administration Dates Next Due COVID-19 mRNA, LNP-s, No Pre serve, 2-Dose Series (Pfizer) 02/16/2021,11/25/2020,11/01/2020 COVID-19, MRNA-LNP, 23-24, P F, 30 MCG/0.3 mL, 12 YRS AND ABOVE, IM (PFIZER-Comirnaty) 04/10/2023 Covid-19, Mrna, Lnp-s, Pf, B ivalent, 30 Mcg, IM, 12 yrs and above (Pfizer) 04/12/2022 Pneumococcal Conjugate Vacci ne, 20-valent ([id number]) 12/10/2021 Pneumococcal Polysaccharide PPV23 (Pneumovax) 07/21/2009 Seasonal [...] PM EST Patient has been identified through [facility] frequent abortive medication refill report. [facility] intake teamis attempting to reach the patient via a Echo[employer] message for prescreening purposes. Thank you, Aliyah Hodges Client Technologies Analyst Centralized [facility] Pharmacy Services ([facility]PS) (Formerly Telepharmacy) 06/21/2023,3:20 PM documented in this encounter Plan of Treatment Upcoming Encounters Date Type Department Care Team (Late st Contact Info) Description 06/28/2023 3:30 PM EST Telemedicine Psychology, [place] [address] [place] [address] Stacy Porter, PhD [address] [place] [address] 07/03/2023 11:15 AM EST Immunization/Injection Hematology/Oncology Treatment, [place] [address] [place] [address] Nurse, Med [address] [place] [address] 07/04/2023 6:30 PM EST Telemedicine Psychiatry, [place] [address] [place] [address] Alexis Serna MD [address] [place] [address] 07/10/2023 11:20 AM EST Office Visit Neurology [facility] [address] [place] [address] Aris Mohr MD [address] [place] [address] 07/18/2023 11:40 AM EST Office Visit Family [address] [phone] Evelyn Andrews MD [address] [place] [address] [place] [address] 07/31/2023 1:30 PM EST Imaging Radiology [facility] 1st [facility] [address] [facility] [place] [address] 08/15/2023 3:40 PM EST Office Visit Family [address] [phone] Evelyn Andrews MD [address] [place] [address] [place] [address] 08/25/2023 10:15 AM EST Telemedicine Urology Grace Martinez [address] [place] [address] [place] [address] Christopher Almonte MD [address] [place] [address] [place] [address] 7, Telemed [facility] Urology Ex Rm 132 [facility] [place] [address] 09/12/2023 3:20 PM EDT Office Visit Nephrology [address] [place] [address] Eliza Boles MD [address] [place] [address] 10/17/2023 3:20 PM EDT Office Visit Gastroenterology, [facility] [address] [place] [address] Milind Yadav MD [address] [place] [address] Health Maintenance Due Date Last Done Comments [...] Additional history exists CKD HGB USE SMARTSET 98369 06/12/202406/12, 03/13/2023, 03/13/2023, Additional history exists CKD PHOS USE SMARTSET 20702 06/20/202405/27, 06/12/2023, 05/22/2023, Additional history exists DTaP,Tdap,and [...] this encounter Medical Devices Implanted Type Area Platform Software Engineer Device Identifier Shelf Expiration Date Model / Serial / Lot Stent Axios 20mm - [id number] Implanted:Qty: 1 on 01/04/2021 by Leyda Garcia MD at OR [facility] N/A: Stomach [employer] : ENDOSCOPY 11/20/2021 [id number] / / [id number] documented as of this encounter Advance Directives Documents on File Type Date Recorded Patient Dowel Setting Machine Operator Expl anation POLST 01/03/2022 [place] OR [facility] FOR LIFE-SUSTAINING TREATMENT Latest Code [...] Other - (no specific identity) Health Care Dowel Setting Machine Operator (appointed verbally by patient or by statute hierarchy) Rowdy Kraus Health Care Dowel Setting Machine Operator (appointed verbally by patient or by statute hierarchy) Care Teams Lofter Relationship Specialty Start Date End Date Evelyn Andrews MD [address] [place] [address] [place] [address] PCP - General Family Medicine 05/04/18 documented as of this encounter
--- OUTSIDE RECORDS SUMMARY | 2023-12-07 18:45 | External Medical Summary | Summary of Care ---
Author Name Unknown Organization [facility] Address [address] [place] [address] Phone [phone] Care Team Providers Care General Accountant Name Role Phone Evelyn Andrews MD Primary Care Prov ider Reason for Visit * Reason Comments eRx-Medication Refill Encounter Details Date Type Department Care Team (Late st Contact Info) Description 06/30/2023 Refill Urology, [facility] 132 [facility] [place] [address] Christopher Almonte MD 27 [facility] [address] [place] [address] Allergies Active Allergy Reactions Criticality Noted Date Comments Amoxicillin Edema airway High 01/22/2003 Oxybutynin 03/25/2023 Mouth ulcers Sulfa Antibiotics Edema airway High 08/15/2006 documented as of this encounter (statuses as of 06/30/2023) Medications Medication Sig Dispensed Refills Start Date [...] 23 Active Vitamin D (Ergocalciferol) 1.25 MG (18926 UT) Oral Capsule (Drisdol)Indicatio ns:Diarrhea due to [...] Nausea. 90 Tablet 1 04/25/20 23 Active Xjptuygehx-FGXO-If ffeine 50-325-40 MG Oral Tablet (Fioricet)Indicati ons:Migraine variant TAKE ONE TABLET EVERY 6 HOURS NEEDED FOR PAIN 90 Tablet 1 05/19/20 23 Active OLANZapine 5 MG Oral Tablet (zyPREXA) Take 1 Tablet by mouth at bedtime. 30 Tablet 5 05/22/20 23 Active Promethazine HCl 25 MG Oral [...] Sleep. 30 Tablet 3 06/14/20 23 Active Diphenoxylate-Atro pine 2.5-0.025 MG Oral Tablet (Lomotil)Indicatio ns:Migraine variant TAKE ONE TABLET BY MOUTH 4 TIMES DAILY NEEDED FOR DAIRRHEA 60 Tablet 0 06/14/20 23 Active Rizatriptan Benzoate 10 MG [...] 120 mL 0 06/28/19 24 Active Nystatin 955548 UNIT/GM External Cream APPLY TO AFFECTED AREA TWICE A DAY 30 g 2 06/30/19 24 Active Nystatin 565018 UNIT/GM External Cream Apply topically to affected area 2 times a day. 30 g 2 04/03/20 23 024 Discontinued documented as of this encounter (statuses as of 06/30/2023) Active Problems Problem Noted Date Diagnosed Date [...] as of this encounter (statuses as of 06/30/2023) Resolved Problems Problem Noted Date Diagnosed Date Resolved Date Old [place] (myocardial infarction) 03/01/2023 03/01/2023 Atherosclerosis of [place] co ronary artery without angina pectoris 02/08/2022 03/08/2022 Hyperparathyroidism 10/15/2021 03/01/20 23 Decreased GFR 08/17/2021 03/01/2023 Nephrolithiasis 02/16/2021 01/27/2022 Overview: Cysto 11/24/21 PFO with atrial septal aneurysm 05/16/2019 06/07/2022 Iron deficiency anemia 04/24/201911/29 Overview: More specific on PL Protein-calorie malnutrition 09/28/2018 09/23/2021 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/2021 CITRIX CONSULTANT demyelination 02/06/2017 05/02/2018 CITRIX CONSULTANT demyelination 02/06/2017 07/09/2019 Iron deficiency anemia 06/28/201109/20 Overview: ICD-10 update of inactive term Iron deficiency anemia 06/28/201109/20 Overview: ICD-10 update of inactive term Iron deficiency anemia pat paulnio to inadequate dietary iron intake 09/26/2008 3 Infected postoperative seroma 06/02/2003 09/20/2012 PANNICULITIS, UNSP SITE 05/14/200311/2022 documented as of this encounter (statuses as of 06/30/2023) Immunizations Name Administration Dates Next Due COVID-19 mRNA, LNP-s, No Pre serve, 2-Dose Series (beneSol) 02/16/2021,11/25/2020,11/01/2020 COVID-19, MRNA-LNP, 23-24, P F, 30 MCG/0.3 mL, 12 YRS AND ABOVE, IM ([employer]-Comirnat) 04/10/2023 Covid-19, Mrna, Lnp-s, Pf, B ivalent, 30 Mcg, IM, 12 yrs and above (Pfizer) 04/12/2022 Pneumococcal Conjugate Vacci ne, 20-valent ([id number]) 12/10/2021 Pneumococcal Polysaccharide PPV23 (Pneumovax) 07/21/2009 Seasonal [...] Telephone Encounter - Christopher Almonte MD - 06/30/2023 11:12 AM EST Signed Prescriptions: Disp Refills Nystatin 290030 UNIT/GM External Cream 30 g 2 Sig: APPLY TO AFFECTED AREA TWICE A DAY Authorizing Provider: CHRISTOPHER ALMONTE * Telephone Encounter - Lucretia Ennis LPN - 06/30/2023 10:27 AM ESTPending Prescriptions: Disp Refills Nystatin 345642 UNIT/GM External Cream [Ph*30 g 2 Sig: APPLY TO AFFECTED AREA TWICE A DAY * Telephone Encounter - Lucretia Ennis LPN - 06/30/2023 10:26 AM EST Please refill the requested medication(s). Nystatin 04/03/2023 (in office), Visit date not found (telemedicine) 08/25/23 Review of patient's allergies indicates: Allergen Reactions Amoxicillin Edema airway Sulfa Antibiotics Edema airway Oxybutynin Mouth ulcers documented in this encounter Plan of Treatment Upcoming Encounters Date Type Department Care Team (Late st Contact Info) Description 07/03/2023 11:15 AM EST Immunization/Injection Hematology/Oncology Treatment, [place] [address] [place] [address] Nurse, Med [address] [place] [address] [place] [address] 07/04/2023 6:30 PM EST Telemedicine Psychiatry, [place] [address] [place] [address] Alexis Serna MD [address] [place] [phone] 07/10/2023 11:20 AM EST Office Visit Neurology [facility] 200 [place] [address] Aris Mohr MD [address] [place], [place] [address] 07/18/2023 11:40 AM EST Office Visit Family Medicine [address] [place] [phone] Evelyn Andrews MD [address] [place] [address] [place] [address] 07/31/2023 1:30 PM EST Imaging Radiology [address] 132 [facility] [place] [address] 08/15/2023 3:40 PM EST Office Visit Family Medicine [address] [place] [phone] Evelyn Andrews MD [address] [place] [address] [place] [address] 08/25/2023 10:15 AM EST Telemedicine Urology Grace Martinez [address] [place] [address] [place] [address] Christopher Almonte MD [address] [place] [address] [place] [address] 7, Telemed [facility] Urology Ex [facility] [place] [address] 09/12/2023 3:20 PM EDT Office Visit Nephrology [address] [place] [address] Eliza Boles MD [address] [place] [address] 10/17/2023 3:20 PM EDT Office Visit Gastroenterology, [facility] [address] [facility] [place] [address] Milind Yadav MD [address] [place] [address] Health Maintenance Due Date Last Done Comments [...] Additional history exists CKD HGB USE SMARTSET 30312 06/12/202406/12, 03/13/2023, 03/13/2023, Additional history exists CKD PHOS USE SMARTSET 14058 06/20/202405/27, 06/12/2023, 05/22/2023, Additional history exists DTaP,Tdap,and [...] this encounter Medical Devices Implanted Type Area Signaler Device Identifier Shelf Expiration Date Model / Serial / Lot Stent Axios 20mm - [id number] Implanted:Qty: 1 on 01/04/2021 by Leyda Garcia MD at OR [facility] N/A: Stomach [employer] : ENDOSCOPY 11/20/2021 [id number] / / [id number] documented as of this encounter Advance Directives Documents on File Type Date Recorded Patient Turning Machine Operator Helper Expl anation POLST 01/03/2022 [place] OR [facility] FOR LIFE-SUSTAINING TREATMENT Latest Code Status on [...] Other - (no specific identity) Health Care Turning Machine Operator Helper (appointed verbally by patient or by statute hierarchy) Rowdy Hogue [facility] Health Care Turning Machine Operator Helper (appointed verbally by patient or by statute hierarchy) Care Teams General Accountant Relationship Specialty Start Date End Date Evelyn Andrews MD [address] [place] [address] [place] [phone] PCP - General Family Medicine 05/04/18 documented as of this encounter
--- OUTSIDE RECORDS SUMMARY | 2023-12-07 18:45 | External Medical Summary | Summary of Care ---
Author Name Unknown Organization [facility] Address [address] [place] [address] Phone [phone] Care Team Providers Care Outside Sales Inspector Name Role Phone Evelyn Andrews MD Primary Care Prov ider Reason for Visit * Reason Onset Date Comments Update 06/27/2023 Encounter Details Date Type Department Care Team (Late st Contact Info) Description 06/27/2023 Telephone Nutrition & Weight Management, [place] [address] [place] [address] Madeline Britt RN [address] [place] [address] Update Allergies Active Allergy Reactions Criticality Noted Date Comments Amoxicillin Edema airway High 01/22/2003 Oxybutynin 03/25/2023 Mouth ulcers Sulfa Antibiotics Edema airway High 08/15/2006 documented as of this encounter (statuses as of 07/04/2023) Medications Medication Sig Dispensed Refills Start Date [...] 23 Active Vitamin D (Ergocalciferol) 1.25 MG (83031 UT) Oral Capsule (Drisdol)Indicatio ns:Diarrhea due to [...] Nausea. 90 Tablet 1 04/25/20 23 Active Onvayzilgv-ZNEX-Xx ffeine 50-325-40 MG Oral Tablet (Fioricet)Indicati ons:Migraine [...] morning. 7 Tablet 0 06/27/19 24 Active Nystatin 363893 UNIT/GM External Cream Apply topically to affected area 2 times a day. 30 g 2 04/03/20 23 024 Discontinued documented as of this encounter (statuses as of 07/04/2023) Active Problems Problem Noted Date Diagnosed Date [...] as of this encounter (statuses as of 07/04/2023) Resolved Problems Problem Noted Date Diagnosed Date Resolved Date Old [place] (myocardial infarction) 03/01/2023 03/01/2023 Atherosclerosis of [place] co ronary artery without angina pectoris 02/08/2022 03/08/2022 Hyperparathyroidism 10/15/2021 03/01/20 23 Decreased GFR 08/17/2021 03/01/2023 Nephrolithiasis 02/16/2021 01/27/2022 Overview: Cysto 11/24/21 PFO with atrial septal aneurysm 05/16/2019 06/07/2022 Iron deficiency anemia 04/24/201911/29 Overview: More specific on PL Protein-calorie malnutrition 09/28/2018 09/23/2021 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/2021 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 02/06/2017 05/02/2018 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 02/06/2017 07/09/2019 Iron deficiency anemia 06/28/201109/20 Overview: ICD-10 update of inactive term Iron deficiency anemia 06/28/201109/20 Overview: ICD-10 update of inactive term Iron deficiency anemia pat paulino to inadequate dietary iron intake 09/26/2008 3 Infected postoperative seroma 06/02/2003 09/20/2012 [facility] 090 11/2022 documented as of this encounter (statuses as of 07/04/2023) Immunizations Name Administration Dates Next Due COVID-19 mRNA, LNP-s, No Pre serve, 2-Dose Series ([employer]) 02/16/2021,11/25/2020,11/01/2020 COVID-19, MRNA-LNP, 23-24, P F, 30 MCG/0.3 mL, 12 YRS AND ABOVE, IM (F[place]-ComirnatGray [place] of [place]) 04/10/2023 Covid-19, Mrna, Lnp-s, Pf, B ivalent, 30 Mcg, IM, 12 yrs and above (Pfizer) 04/12/2022 Pneumococcal Conjugate Vacci ne, 20-valent ([id number]) 12/10/2021 Pneumococcal Polysaccharide PPV23 (Pneumovax) 07/21/2009 Seasonal [...] Miscellaneous Notes * Telephone Encounter - Madeline Britt, RN - 06/27/2023 12:57 PM EST Pt calls - she is at home with covid. She was contemplating which hospital she would use if her condition worsen. Discussed options. She is doing OK today. She was recently on prednisone for her migranes and she attribute and 4 lb weight gain and LE edema She is willing to go for a second opinion for Nutrition support: [place] - NOT [facility] - but has brother who livers there if another option than [facility] - her boss could take her there. Pt does not have an appt for June at this time Will make Still aware. Madeline Britt, MSN, RN, Clinical Nurse Specialist [address] [phone] documented in this encounter Plan of Treatment Upcoming Encounters Date Type Department Care Team (Late st Contact Info) Description 07/04/2023 6:30 PM EST Telemedicine Psychiatry, [place] [address] [place] [address] Alexis Serna MD [address] [place] [address] 07/10/2023 11:20 AM EST Office Visit Neurology [facility] 200 [facility] [place] [address] Aris Mohr MD 200 [facility] [place] [address] 07/18/2023 11:40 AM EST Office Visit Family Medicine [address] [phone] Evelyn Andrews MD [address] [place] [address] [place] [address] 07/31/2023 1:30 PM EST Imaging Radiology [address] [address] 08/15/2023 3:40 PM EST Office Visit Family Medicine [address] [phone] Evelyn Andrews MD [address] [place] [address] [place] [address] 08/25/2023 10:15 AM EST Telemedicine Urology Grace Martinez [address] [place] [address] [place] [address] Christopher Almonte MD [address] [place] [address] [place] [address] 7, Telemed [facility] Urology Ex Rm [address] [place] [address] 09/12/2023 3:20 PM EDT Office Visit Nephrology [address] [place] [address] Eliza Boles MD [address] [place] [facility] [place] [address] 10/17/2023 3:20 PM EDT Office Visit Gastroenterology, [facility] [address] [place] [address] Milind Yadav MD [address] [place] [address] Health Maintenance Due Date Last Done Comments [...] Additional history exists CKD HGB USE SMARTSET 94461 06/12/202406/12, 03/13/2023, 03/13/2023, Additional history exists CKD PHOS USE SMARTSET 98993 06/20/202405/27, 06/12/2023, 05/22/2023, Additional history exists DTaP,Tdap,and [...] this encounter Medical Devices Implanted Type Area Print Line Operator Device Identifier Shelf Expiration Date Model / Serial / Lot Stent Axios 20mm - [id number] Implanted:Qty: 1 on 01/04/2021 by Leyda Garcia MD at OR [facility] N/A: Stomach [employer] : ENDOSCOPY 11/20/2021 [id number] / / [id number] documented as of this encounter Advance Directives Documents on File Type Date Recorded Patient Learning Solutions Specialist Expl anation POLST 01/03/2022 [place] OR [facility] FOR LIFE-SUSTAINING TREATMENT Latest Code Status on [...] Other - (no specific identity) Health Care Learning Solutions Specialist (appointed verbally by patient or by statute hierarchy) Rowdy Mykel Sibling Health Care Learning Solutions Specialist (appointed verbally by patient or by statute hierarchy) Care Teams Outside Sales Inspector Relationship Specialty Start Date End Date Evelyn Andrews MD [address] [place] [address] [place] [address] PCP - General Family Medicine 05/04/18 documented as of this encounter
--- OUTSIDE RECORDS SUMMARY | 2023-12-07 18:45 | External Medical Summary | Summary of Care ---
Author Name Unknown Organization [facility] Address [address] [place] [address] Phone [phone] Care Team Providers Care Mattress Renovator Name Role Phone Evelyn Andrews MD Primary Care Prov ider Encounter Details Date Type Department Care Team (Late st Contact Info) Description 06/20/2023 Orders Only Nutrition & Weight Management, [place] [address], [place] [id number] Liane Liang MD [address] [place] [address] Allergies Active Allergy Reactions Criticality [...] 12/15/2022 Active Vitamin D (Ergocalciferol) 1.25 MG (47786 UT) Oral Capsule (Drisdol)Indication s:Diarrhea due to [...] morning. 90 Tablet 3 04/03/2023 Active Nystatin 442954 UNIT/GM External Cream Apply topically to affected [...] for Nausea. 90 Tablet 1 04/25/2023 Active Hxwknymcja-DWPN-Txg feine 50-325-40 MG Oral Tablet (Fioricet)Indicatio ns:Migraine [...] MA (myocardial infarction) 03/01/2023 03/01/2023 Atherosclerosis of [place] ronary artery without angina pectoris 02/08/2022 03/08/2022 Hyperparathyroidism 10/15/2021 03/01/20 23 Decreased GFR 08/17/2021 03/01/2023 Nephrolithiasis 02/16/2021 01/27/2022 Overview: Cysto 11/24/21 PFO with atrial septal aneurysm 05/16/2019 06/07/2022 Iron deficiency anemia 04/24/201911/29 Overview: More specific on PL Protein-calorie malnutrition 09/28/2018 09/23/2021 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/2021 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 02/06/2017 05/02/2018 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 02/06/2017 07/09/2019 Iron deficiency [...] MCG/0.3 mL, 12 YRS AND ABOVE, IM ([employer] Twitter Dashboard) 04/10/2023 Covid-19, Mrna, Lnp-s, Pf, B ivalent, 30 Mcg, IM, 12 yrs and above (Pfizer) 04/12/2022 Pneumococcal Conjugate Vacci ne, 20-valent ([id number]) 12/10/2021 Pneumococcal Polysaccharide PPV23 (Pneumovax) 07/21/2009 Seasonal [...] 07/03/2023 11:15 AM EST Immunization/Injection Hematology/Oncology Treatment, [place] [address] [place] [address] Nurse, Med 200 [facility] [place] [address] 07/04/2023 6:30 PM EST Telemedicine Psychiatry, [place] [address] [place] [address] Alexis Serna MD [address] [place] [address] 07/10/2023 11:20 AM EST Office Visit Neurology [facility] [address] [facility] [place] [address] Aris Mohr MD 200 [place] [address] 07/18/2023 11:40 AM EST Office Visit Family Medicine [address] [phone] Evelyn Andrews MD [address] [place] [address] [place] [address] 07/31/2023 1:30 PM EST Imaging Radiology [address] [place] [address] 08/15/2023 3:40 PM EST Office Visit Family Medicine [address] [place] [phone] Evelyn Andrews MD [address] [place] [address] [place] [address] 08/25/2023 10:15 AM EST Telemedicine Urology Grace Martinez [address] [place] [address] Christopher Almonte MD [address] [place] [address] 7, Telemed [facility] Urology Ex Rm [address] [place] [address] 09/12/2023 3:20 PM EDT Office Visit Nephrology [address] [place] [address] Eliza Boles MD [address] [place] [address] 10/17/2023 3:20 PM EDT Office Visit Gastroenterology, [facility] [address] [address] Milind Yadav MD [address] [place] [address] Health Maintenance Due Date Last Done Comments [...] Additional history exists CKD HGB USE SMARTSET 72401 06/12/202406/12, 03/13/2023, 03/13/2023, Additional history exists CKD PHOS USE SMARTSET 99752 06/20/202405/27, 06/12/2023, 05/22/2023, Additional history exists DTaP,Tdap,and [...] this encounter Medical Devices Implanted Type Area Conduit Worker Device Identifier Shelf Expiration Date Model / Serial / Lot Stent Axios 20mm - [id number] Implanted:Qty: 1 on 01/04/2021 by Leyda Garcia MD at OR [facility] N/A: Stomach [employer] : ENDOSCOPY 11/20/2021 [id number] / / [id number] documented as of this encounter Advance Directives Documents on File Type Date Recorded Patient Car Pilot Expl anation POLST 01/03/2022 [place] [facility] FOR LIFE-SUSTAINING TREATMENT [...] Other - (no specific identity) Health Care Car Pilot (appointed verbally by patient or by statute hierarchy) Rowdy Mykel Kraus Health Care Car Pilot (appointed verbally by patient or by statute hierarchy) Care Teams Mattress Renovator Relationship Specialty Start Date End Date Evelyn Andrews MD [address] [place] [address] [place] [address] PCP - General Family Medicine 05/04/18 documented as of this encounter
--- OUTSIDE RECORDS SUMMARY | 2023-12-07 18:45 | External Medical Summary | Summary of Care ---
Author Name Unknown Organization [facility] Address [address] [place] [address] Phone [phone] Care Team Providers Care Bead Maker Name Role Phone Evelyn Andrews MD Primary Care Prov ider Reason for Visit * Reason Comments Medication Management Encounter Details Date Type Department Care Team (Late st Contact Info) Description 06/21/2023 12:30 PM EST Pharmacy [facility] [address] [place] [address] Manage, Lauren Pharmacist Tpn [address] [place], [place] [phone] Allergies Active Allergy Reactions Criticality Noted Date Comments Amoxicillin Edema airway High 01/22/2003 Oxybutynin 03/25/2023 Mouth ulcers Sulfa Antibiotics Edema airway High 08/15/2006 documented as of this encounter (statuses as of 06/21/2023) Medications Medication Sig Dispensed Refills Start Date [...] 12/15/2022 Active Vitamin D (Ergocalciferol) 1.25 MG (77982 UT) Oral Capsule (Drisdol)Indication s:Diarrhea due to [...] morning. 90 Tablet 3 04/03/2023 Active Nystatin 216015 UNIT/GM External Cream Apply topically to affected [...] for Nausea. 90 Tablet 1 04/25/2023 Active Vdshenrkmy-XJEO-Akg feine 50-325-40 MG Oral Tablet (Fioricet)Indicatio ns:Migraine [...] as of this encounter (statuses as of 06/21/2023) Active Problems Problem Noted Date Diagnosed Date [...] as of this encounter (statuses as of 06/21/2023) Resolved Problems Problem Noted Date Diagnosed Date Resolved Date Old IN (myocardial infarction) 03/01/2023 03/01/2023 Atherosclerosis of [place] ronary artery without angina pectoris 02/08/2022 03/08/2022 Hyperparathyroidism 10/15/2021 03/01/20 23 Decreased GFR 08/17/2021 03/01/2023 Nephrolithiasis 02/16/2021 01/27/2022 Overview: Cysto 11/24/21 PFO with atrial septal aneurysm 05/16/2019 06/07/2022 Iron deficiency anemia 04/24/201911/29 Overview: More specific on PL Protein-calorie malnutrition 09/28/2018 09/23/2021 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/2021 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 02/06/2017 05/02/2018 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 02/06/2017 07/09/2019 Iron deficiency anemia 06/28/201109/20 Overview: ICD-10 update of inactive term Iron deficiency anemia 06/28/201109/20 Overview: ICD-10 update of inactive term Iron deficiency anemia pat morrisony to inadequate dietary iron intake 09/26/2008 3 Infected postoperative seroma 06/02/2003 09/20/2012 PANNICULITIS, UNSP SITE 05/14/2003 09/0 11/2022 documented as of this encounter (statuses as of 06/21/2023) Immunizations Name Administration Dates Next Due COVID-19 mRNA, LNP-s, No Pre serve, 2-Dose Series (Pfizer) 02/16/2021,11/25/2020,11/01/2020 COVID-19, MRNA-LNP, 23-24, P F, 30 MCG/0.3 mL, 12 YRS AND ABOVE, IM ([employer]-Comirnat) 04/10/2023 Covid-19, Mrna, Lnp-s, Pf, B ivalent, 30 Mcg, IM, 12 yrs and above (Pfizer) 04/12/2022 Pneumococcal Conjugate Vacci ne, 20-valent ([id number]) 12/10/2021 Pneumococcal Polysaccharide PPV23 (Pneumovax) 07/21/2009 Seasonal [...] this encounter Progress Notes * Mayra Crook, LTAC, located within [facility] - 06/21/2023 12:24 PM EST [facility] Adult TPN Documentation Patient Phone Numbers mobile [phone] Results for orders placed or performed during [...] orders placed or performed in visit on 06/20/23 COMPREHENSIVE METABOLIC PANEL Result Value Ref Range BUN 38 (H) [...] g/dL ALT 32 10 - 35 U/L Lab Results Component Value Date/Time MAGNESIUM - [facility] 1.5 06/20/2023 02:51 PM MAGNESIUM - [facility] 1.7 05/10/2019 02:25 PM MAGNESIUM URINE 24HR 107 05/22/2013 11:39 AM MAGNESIUM-OUTSIDE LAB 1.3 (L) 11/30/2020 04:26 AM Lab Results Component Value Date/Time PHOSPHORUS - [facility] 4.7 06/20/2023 02:51 PM PHOSPHORUS - [facility] 3.9 05/10/2019 02:25 PM PHOSPHORUS, 24 HOUR URINE - [facility] 0.402 05/22/2013 11:39 AM PHOSPHORUS-OUTSIDE LAB 4.3 11/30/2020 12:00 AM PHOSPHORUS-OUTSIDE LAB 4.3 11/28/2020 09:46 AM Lab Results Component Value Date/Time CALCIUM - [facility] 8.1 (L) 06/20/2023 02:51 PM CALCIUM - [facility] 8.5 07/16/2020 12:54 PM CALCIUM, 24 HOUR URINE - [facility] 0.065 05/10/2019 02:25 PM CALCIUM, IONIZED - [facility] 1.23 06/20/2023 02:50 PM CALCIUM, IONIZED - [facility] 1.33 (H) 07/21/2009 11:31 AM Patient weight (kg):34.4 kg; 75.6 lbs (increased; client has edema from prednisone course) Amino acids (gm): 85 Dextrose (gm): 250 Lipids (gm): 80 Days per week (lipids): 7 Volume (ml): 1800 Cycle (hr): 12 with two hour taper down Days per week infused: 7 Sodium Chloride (mEq): 0 Sodium Phosphate (mM): 0 Sodium Acetate (mEq): 180 (was 170) Potassium Chloride (mEq): 0 Potassium Phosphate (mM): 12 Potassium Acetate (mEq): 6 Calcium Gluconate (mEq): 2.5 Magnesium Sulfate (mEq): 12 Multiple Trace elements (ml): - Multivits (ml): 10 (3 times per week) Zinc (mg): 10 Selenium (mcg): 100 Cupric Chloride (mg): 1 Manganese (mg): 0.055 Chromium (mcg): - Human Regular Insulin (Units): - Octreotide (mcg): - 400 mcg IV daily Famotidine (mg): - Other: - Client is a 57 yo female on TPN for severe malnutrition. Reviewed labs from 06/20/23; Per lida Durham to increase Na Acetate to 180 mEq/Day. No other changes. Deliver 06/21/23 to cover through 06/28/23. Next weekly labs 06/27/22: (CMP, Magnesium, Phosphorus,and Ionized Calcium). Will exchange CADD pump after the holidays and review pump history for compliance. Mayra Crook RPh 06/21/2023 12:24 PM documented in this encounter Plan of Treatment Upcoming Encounters Date Type Department Care Team (Late st Contact Info) Description 06/28/2023 10:45 AM EST Immunization/Injection Hematology/Oncology Treatment, [place] [address] [place] [address] Nurse, Med [address] [place] [address] 06/28/2023 3:30 PM EST Telemedicine Psychology, [address] [address] Stacy Porter, PhD [facility] [place] [address] 07/04/2023 6:30 PM EST Telemedicine Psychiatry, [address] [address] Alexis Serna MD [address] [facility] [place] [address] 07/10/2023 11:20 AM EST Office Visit Neurology [facility] [address] [place] [address] Aris Mohr MD [address] [place] [address] 07/18/2023 11:40 AM EST Office Visit Family Medicine [address] [place] [phone] Evelyn Andrews MD [address] [place] [address] [place] [address] 07/31/2023 1:30 PM EST Imaging Radiology [address] [facility] [place] [address] 08/15/2023 3:40 PM EST Office Visit Family Medicine [address] [place] [phone] Evelyn Andrews MD [address] [place] [address] [place] [address] 08/25/2023 10:15 AM EST Telemedicine Urology Grace Martinez [address] [place] [address] Christopher Almonte MD [address] [place] [address] 7, Telemed [facility] Urology Ex [address] [facility] [place] [address] 09/12/2023 3:20 PM EDT Office Visit Nephrology [address] [place] [address] Eliza Boles MD 200 [facility] [place] [address] 10/17/2023 3:20 PM EDT Office Visit Gastroenterology, [facility] [address] [place] [address] Milind Yadav MD [address] [place] [address] Health Maintenance Due Date Last Done Comments [...] Additional history exists CKD HGB USE SMARTSET 43328 06/12/202406/12, 03/13/2023, 03/13/2023, Additional history exists CKD PHOS USE SMARTSET 27894 06/20/202405/27, 06/12/2023, 05/22/2023, Additional history exists DTaP,Tdap,and [...] this encounter Medical Devices Implanted Type Area Chemical Analyst Device Identifier Shelf Expiration Date Model / Serial / Lot Stent [employer] 20mm - [id number] Implanted:Qty: 1 on 01/04/2021 by Leyda Garcia MD at OR [facility] N/A: Stomach [employer] : ENDOSCOPY 11/20/2021 [id number] / / [id number] documented as of this encounter Advance Directives Documents on File Type Date Recorded Patient Brim Rounder Expl anation POLST 01/03/2022 [place] OR [facility] FOR LIFE-SUSTAINING TREATMENT Latest Code Status on [...] Other - (no specific identity) Health Care Brim Rounder (appointed verbally by patient or by statute hierarchy) Rowdy Mykel Efra Health Care Brim Rounder (appointed verbally by patient or by statute hierarchy) Care Teams Bead Maker Relationship Specialty Start Date End Date Evelyn Andrews MD [address] [place] [address] [place] [phone] PCP - General Family Medicine 05/04/18 documented as of this encounter
--- OUTSIDE RECORDS SUMMARY | 2023-12-07 18:45 | External Medical Summary | Summary of Care ---
Author Name Unknown Organization [facility] Address [address] [place] [address] Phone [phone] Care Team Providers Care Comic Writer Name Role Phone Evelyn Andrews MD Primary Care Prov ider Reason for Visit * Reason Comments Follow Up Encounter Details Date Type Department Care Team (Late st Contact Info) Description 06/28/2023 3:30 PM [facility] [address] [place] [address] Stacy Porter, PhD [address] [place] [address] Major depressive disorder, recurrent severe without psychotic features (HCC)* Allergies Active Allergy Reactions Criticality Noted [...] 12/15/2022 Active Vitamin D (Ergocalciferol) 1.25 MG (26211 UT) Oral Capsule (Drisdol)Indication s:Diarrhea due to [...] morning. 90 Tablet 3 04/03/2023 Active Nystatin 129065 UNIT/GM External Cream Apply topically to affected [...] for Nausea. 90 Tablet 1 04/25/2023 Active Uvfcshsbec-BFGM-Xmf feine 50-325-40 MG Oral Tablet (Fioricet)Indicatio ns:Migraine [...] for Cough. 120 mL 0 06/28/2023 Active documented as of this encounter (statuses [...] OR (myocardial infarction) 03/01/2023 03/01/2023 Atherosclerosis of [place] ronary artery without angina pectoris 02/08/2022 03/08/2022 Hyperparathyroidism 10/15/2021 03/01/20 23 Decreased GFR 08/17/2021 03/01/2023 Nephrolithiasis 02/16/2021 01/27/2022 Overview: Cysto 11/24/21 PFO with atrial septal aneurysm 05/16/2019 06/07/2022 Iron deficiency anemia 04/24/201911/29 Overview: More specific on PL Protein-calorie malnutrition 09/28/2018 09/23/2021 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/2021 SEARCH DEVELOPER demyelination 02/06/2017 05/02/2018 SEARCH DEVELOPER demyelination 02/06/2017 07/09/2019 Iron deficiency anemia [...] mRNA, LNP-s, No Pre serve, 2-Dose Series (Voxel (Internap)) 02/16/2021,11/25/2020,11/01/2020 COVID-19, MRNA-LNP, 23-24, P F, 30 MCG/0.3 mL, 12 YRS AND ABOVE, IM ([employer] !) 04/10/2023 Covid-19, Mrna, Lnp-s, Pf, B ivalent, 30 Mcg, IM, 12 yrs and above (Voxel (Internap)) 04/12/2022 Pneumococcal Conjugate Vacci ne, 20-valent ([id number]) 12/10/2021 Pneumococcal Polysaccharide PPV23 (Pneumovax) 07/21/2009 Seasonal [...] this encounter Patient Instructions * Patient Instructions* Stacy Porter, PhD - 06/28/2023 3:53 PM EST Crisis Plan Step 1: Signs that I am doing worse: Sleeping a lot more than usual, not wanting to get up Procrastinating on things that need to get done, rationalizing it, not caring for several days in arow Declining friend's invitation out to lunch Crying uncontrollably Step 2: Internal Coping Strategies: Things I can do to take my mind off my problems without contacting another person: Take a nap Watch a movie Stay off Facebook, especially ex's page Step 3: People and social settings that provide distraction (name, phone number and place): Ariella Laguerre "Bonus kids" Susana, Allmaral, Chris, or Kanu Brother Rowdy Step 4: People whom I can ask for help (name and phone number): Ariella, close friend of 40 years Step 5: Professionals or agencies I can contact during a crisis (clinician name and phone number): 1. Local Crisis Services: [place] [phone] Choose option 1 2. [facility] Division of Psychiatry: [phone] Step 6: Keeping the environment safe: Plan for restricting access to lethal means (firearms, medications). You have medications at home, but these aren't the pills that you consider using sometimes when you're thinking of dying. No firearms at home Additional resources: 1. National Suicide Prevention Lifeline: 988 OR 2. National Crisis Text Line: Text HOME to 534089 3. 911 or proceed to the nearest emergency room (Safety Plan Treatment Manual to Reduce Suicide Risk: [place] Version (Benedicto & Mason, 2008)) documented in this encounter Progress Notes * Stacy Porter, PhD - 06/28/2023 3:33 PM EST Patient location: HOME. I was in a hospital or clinic location. After connecting through televideo,patient was verified with two unique identifiers. Patient (or authorized legal policy services representative) was then informed that this was a Telemedicine visit and being conducted confidentially over secure lines. Methods to assure confidentiality were taken. Patient acknowledged consent and understanding of pr ivacy and security of the Telemedicine visit. The patient agreed to participate. My office door was closed. No one else was in the room with me. I informed the patient that I have reviewed their record in [employer] and presented the opportunity for them to ask any questions regarding the visit today. The patient agreed to participate. Provider reviewed elements of Outpatient Services Description including limits of confidentiality, how to contact the department, risks and benefits of treatment and consent for treatment. Start Time: 3:30PM Stop Time: 4:01PM Total direct tedl-qy-awph time: 31 minutes (pt's device prematurely disconnected and could not reconnect, so session ended before we could wrap up). Confirm patient's location (and address if different from the home address documented in Epic) at the time of this appointment: Home address BEHAVIORAL MEDICINE PROGRESS NOTE Psychology, [address] [address] 06/28/2023 3:34 PM TYPE OF VISIT: Individual DIAGNOSIS: Major Depressive Disorder, Recurrent, Severe w/o Psychosis REASON FOR FOLLOW-UP: Individual therapy SESSION FOCUS: Treatment planning - this is pt's first follow up with me since 02/06/23 NOTES: - Pt stated that she is "still kicking" but noted that she has Covid-19 for the 4th time. Experiencing significant SOB and was considering going to the hospital. SOB has since improved. - Has been out of work d/t illness. "This is the most down and out I've been." Feels "so sick of being sick." Did state that she has continued to work, just fewer hours. - Mood-rust feels she is "getting some type of a balance, we're getting there" with medication management. Will be following with Dr. Serna on 07/01/23. - "I'm not gaining any weight though." Last weight on record = 76 lbs. Still on TPN. Stated that she is considering seeking consultation with another expert at Dr. Wilkerson's advice. - Still experiences suicidal ideation, especially when she is lonely. Last time on ' M[place] when she was sick, had no plans, and was alone. Was invited to brother's for [place] but had no transportation to get there. Expressed appreciation for her relationship with her brother and his willingness to help her financially, especially since she is not able to work as many hours. - Frustrated that she is unable to get out and do things d/t her medical issues and treatments. "I'm spinning my wheels, and for what?" Unsure what keeps her going, what her protective factors. 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 "I don't know what he would do withoutme." - Stated that a david she flirts with gave her his number. Thinking about whether she should go on a date with him. Plans to call friend Carlotta for advice. Believes she will encourage her to "go for it." Discussed barriers to accepting his invitation and problem solved. - Discussed potential goal for therapy going forward: "even though I say it, full acceptance of myself and who I am." Noted that she still feels responsible for her father leaving their family when she was an adolescent. Wishes she felt less guilt and regrets about decisions she made early in life,which she believes led to where she is now. Denied that she dwells on them per se when the undersigned provider attempted to form a clearer, more concrete goal with pt. PROGRESS TOWARDS GOALS: Goal: Improved self-management of chronic and suicidal ideation. Objective Measures: C-SSRS only INTERVENTION: Supportive listening Problem solving PATIENT EDUCATION: Verbal & written MENTAL STATUS AND BEHAVIORAL OBSERVATIONS: Appearance: within normal limits Behavior: within normal limits Speech: normal pitch, rate and volume Affect: Congruent with content of conversation Thought Process: within normal limits and goal directed Thought Content: within normal limits Intellectual Function: within normal limits Sensorium: alert and oriented to person, place, time and situation Cognition: grossly intact Insight/Judgment: good Suicide/Homicidal Assessment Validated Screening and Assessment Measures C-SSRS only Risk Level Impression: -Low risk: Continue outpatient therapy; safety plan may still be indicated; provided crisis numbers Crisis Plan Step 1: Signs that I am doing worse: Sleeping a lot more than usual, not wanting to get up Procrastinating on things that need to get done, rationalizing it, not caring for several days in arow Declining friend's invitation out to lunch Crying uncontrollably Step 2: Internal Coping Strategies: Things I can do to take my mind off my problems without contacting another person: Take a nap Watch a movie Stay off Facebook, especially ex's page Step 3: People and social settings that provide distraction (name, phone number and place): Ariella Carlotta "Bonus kids" Kerry Meza Thomas, or Kanu Brother Rowdy Step 4: People whom I can ask for help (name and phone number): Ariella, close friend of 40 years Step 5: Professionals or agencies I can contact during a crisis (clinician name and phone number): 1. [facility] Crisis Services: [place] [phone] Choose option 1 2. [facility] Division of Psychiatry: [phone] Step 6: Keeping the environment safe: Plan for restricting access to lethal means (firearms, medications). You have medications at home, but these aren't the pills that you consider using sometimes when you're thinking of dying. No firearms at home Additional resources: 1. National Suicide Prevention Lifeline: 988 OR 2. National Crisis Text Line: Text HOME to 134192 3. 911 or proceed to the nearest emergency room (Safety Plan Treatment Manual to Reduce Suicide Risk: [place] Version (Benedicto & Mason, 2008)) TREATMENT PLAN - Pt will return as needed. Stacy Porter, PhD Division of Psychiatry & Behavioral Medicine [facility] [phone] documented in this encounter Plan of Treatment Upcoming Encounters Date Type Department Care Team (Late st Contact Info) Description 07/03/2023 11:15 AM EST Immunization/Injection Hematology/Oncology Treatment, [place] [address] [place] [address] Nurse, Med 200 [facility] [place] [address] 07/04/2023 6:30 PM EST [facility] [address] [place] [address] Alexis Serna MD [address] [place] [address] 07/10/2023 11:20 AM EST Office Visit Neurology [facility] [address] [facility] [place] [address] [facility] MD [facility] [address] 07/18/2023 11:40 AM EST Office Visit Family Medicine [address] [phone] Evelyn Andrews MD [address] [place] [address] [place] [address] 07/31/2023 1:30 PM EST Imaging Radiology [address] [place] [address] 08/15/2023 3:40 PM EST Office Visit Family Medicine [address] [place] [phone] Evelyn Andrews MD [address] [place] [address] [place] [address] 08/25/2023 10:15 AM EST Telemedicine Urology Grace Martinez [address] [place] [address] [place] [address] Christopher Almonte MD [address] [place] [address] [place] [address] 7, Telemed [facility] Urology Ex Rm 132 [place] [address] 09/12/2023 3:20 PM EDT Office Visit Nephrology [address] [place] [address] Eliza Boles MD [address] [place] [address] 10/17/2023 3:20 PM EDT Office Visit Gastroenterology, [facility] [address] [place] [address] Milind Yadav MD [address] [place] [address] Health Maintenance Due Date Last Done Comments [...] Additional history exists CKD HGB USE SMARTSET 13810 06/12/202406/12, 03/13/2023, 03/13/2023, Additional history exists CKD PHOS USE SMARTSET 83646 06/20/202405/27, 06/12/2023, 05/22/2023, Additional history exists DTaP,Tdap,and [...] this encounter Medical Devices Implanted Type Area Trimmer Press Clippings Device Identifier Shelf Expiration Date Model / Serial / Lot Stent Axios 20mm - [id number] Implanted:Qty: 1 on 01/04/2021 by Leyda Garcia MD at OR [facility] N/A: Stomach [employer] : ENDOSCOPY 11/20/2021 [id number] / / [id number] documented as of this encounter Visit Diagnoses Diagnosis Major depressive disorder, recurrent severe without psychotic features (HCC)- Primary Major depressive disorder, recurrent episode, severe, without mention of psychotic behavior documented in this encounter Advance Directives Documents on File Type Date Recorded Patient Tire Installer Expl anation POLST 01/03/2022 [place] OR [facility] FOR LIFE-SUSTAINING TREATMENT [...] Other - (no specific identity) Health Care Tire Installer (appointed verbally by patient or by statute hierarchy) Rowdy Hogue Sibling Health Care Tire Installer (appointed verbally by patient or by statute hierarchy) Care Teams Comic Writer Relationship Specialty Start Date End Date Evelyn Andrews MD [address] [place] [address] [place] [id number] PCP - General Family Medicine 05/04/18 documented as of this encounter
--- OUTSIDE RECORDS SUMMARY | 2023-12-07 18:45 | External Medical Summary | Summary of Care ---
Author Name Unknown Organization [facility] Address [address] [place] [address] Phone [phone] Care Team Providers Care Poker Manager Name Role Phone Evelyn Andrews MD Primary Care Prov ider Reason for Visit * Reason Onset Date Comments Appointment 06/27/2023 Treatment Encounter Details Date Type Department Care Team (Late st Contact Info) Description 06/27/2023 Telephone Access Center, [place] [address] [facility] *DO NOT REMOVE THIS DEPARTMENT* [place] [address] Services, Scheduling [address] [place] [address] Appointment (Treatment) Allergies Active Allergy Reactions Criticality Noted Date Comments Amoxicillin Edema airway High 01/22/2003 Oxybutynin 03/25/2023 Mouth ulcers Sulfa Antibiotics Edema airway High 08/15/2006 documented as of this encounter (statuses as of 06/27/2023) Medications Medication Sig Dispensed Refills Start Date [...] 12/15/2022 Active Vitamin D (Ergocalciferol) 1.25 MG (67296 UT) Oral Capsule (Drisdol)Indication s:Diarrhea due to [...] morning. 90 Tablet 3 04/03/2023 Active Nystatin 430299 UNIT/GM External Cream Apply topically to affected [...] for Nausea. 90 Tablet 1 04/25/2023 Active Iqokpuqlfk-YWSI-Tzt feine 50-325-40 MG Oral Tablet (Fioricet)Indicatio ns:Migraine [...] the morning. 7 Tablet 0 06/27/2023 Active documented as of this encounter (statuses as of 06/27/2023) Active Problems Problem Noted Date Diagnosed Date [...] as of this encounter (statuses as of 06/27/2023) Resolved Problems Problem Noted Date Diagnosed Date Resolved Date Old [place] (myocardial infarction) 03/01/2023 03/01/2023 Atherosclerosis of [place] co ronary artery without angina pectoris 02/08/2022 03/08/2022 Hyperparathyroidism 10/15/2021 03/01/20 23 Decreased GFR 08/17/2021 03/01/2023 Nephrolithiasis 02/16/2021 01/27/2022 Overview: Cysto 11/24/21 PFO with atrial septal aneurysm 05/16/2019 06/07/2022 Iron deficiency anemia 04/24/201911/29 Overview: More specific on PL Protein-calorie malnutrition 09/28/2018 09/23/2021 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/2021 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 02/06/2017 05/02/2018 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 02/06/2017 07/09/2019 Iron deficiency anemia 06/28/201109/20 Overview: ICD-10 update of inactive term Iron deficiency anemia 06/28/201109/20 Overview: ICD-10 update of inactive term Iron deficiency anemia pat paulino to inadequate dietary iron intake 09/26/2008 3 Infected postoperative seroma 06/02/2003 09/20/2012 [facility] 11/2022 documented as of this encounter (statuses as of 06/27/2023) Immunizations Name Administration Dates Next Due COVID-19 mRNA, LNP-s, No Pre serve, 2-Dose Series ([employer]osphere) 02/16/2021,11/25/2020,11/01/2020 COVID-19, MRNA-LNP, 23-24, P F, 30 MCG/0.3 mL, 12 YRS AND ABOVE, IM ([facility]) 04/10/2023 Covid-19, Mrna, Lnp-s, Pf, B ivalent, 30 Mcg, IM, 12 yrs and above (Pfizer) 04/12/2022 Pneumococcal Conjugate Vacci ne, 20-valent ([id number]) 12/10/2021 Pneumococcal Polysaccharide PPV23 (Pneumovax) 07/21/2009 Seasonal [...] Telephone Encounter - Sara Collier OSA - 06/27/2023 10:51 AM EST Called and spoke to patient and she rescheduled to 07/03/23. * Telephone Encounter - Jenny Alejo OSA - 06/27/2023 10:37 AM EST Pt called in stating that she has tested positive for COVID and needs to reschedule her appt tomorrow 06/28/23. She is asking for a return call to reschedule [phone] documented in this encounter Plan of Treatment Upcoming Encounters Date Type Department Care Team (Late st Contact Info) Description 06/28/2023 3:30 PM EST Telemedicine [address] [address] Stacy Porter, PhD [address] [place] [address] 07/03/2023 11:15 AM EST Immunization/Injection Hematology/Oncology Treatment, [place] 200 [place] [address] Nurse, Med 200 [facility] [place] [address] 07/04/2023 6:30 PM EST Telemedicine Psychiatry, [place] [address] [place] [address] Alexis Serna MD [address] [place] [phone] 07/10/2023 11:20 AM EST Office Visit Neurology [facility] 200 [place] [address] Aris Mohr MD 200 [place] [address] 07/18/2023 11:40 AM EST Office Visit Family Medicine [address] [phone] Evelyn Andrews MD [address] [place] [address] [place] [address] 07/31/2023 1:30 PM EST Imaging Radiology [facility] [address] [place] [address] 08/15/2023 3:40 PM EST Office Visit Family Medicine [address] [place] [phone] Evelyn Andrews MD [address] [place] [address] [place] [address] 08/25/2023 10:15 AM EST Telemedicine Urology Grace Martinez [address] [place] [address] [place] [address] Christopher Almonte MD [address] [place] [address] [place] [address] 7, Telemed [facility] Urology Ex Rm [address] [place] [place] [address] 09/12/2023 3:20 PM EDT Office Visit Nephrology [address] [place] [address] BolesEliza gil MD [address] [place] [address] 10/17/2023 3:20 PM EDT Office Visit Gastroenterology, [facility] [address] [place] [address] Milind Yadav MD [address] [place] [address] Health Maintenance Due Date Last Done Comments [...] Additional history exists CKD HGB USE SMARTSET 98919 06/12/202406/12, 03/13/2023, 03/13/2023, Additional history exists CKD PHOS USE SMARTSET 35417 06/20/2024 1211/2022, 06/12/2023, 05/22/2023, Additional history exists [...] this encounter Medical Devices Implanted Type Area Pants Cutter Device Identifier Shelf Expiration Date Model / Serial / Lot Stent Axios 20mm - [id number] Implanted:Qty: 1 on 01/04/2021 by Leyda Garcia MD at OR [facility] N/A: Stomach [employer] : ENDOSCOPY 11/20/2021 [id number] / / [id number] documented as of this encounter Advance Directives Documents on File Type Date Recorded Patient Human Resources Trainee Expl anation POLST 01/03/2022 [place] OR [facility] FOR LIFE-SUSTAINING TREATMENT [...] Other - (no specific identity) Health Care Human Resources Trainee (appointed verbally by patient or by statute hierarchy) Rowdy Hogue [facility] Health Care Human Resources Trainee (appointed verbally by patient or by statute hierarchy) Care Teams Poker Manager Relationship Specialty Start Date End Date Evelyn Andrews MD [address] [place] [address] [place] [address] PCP - General Family Medicine 05/04/18 documented as of this encounter
--- OUTSIDE RECORDS SUMMARY | 2023-12-07 18:45 | External Medical Summary | Summary of Care ---
Author Name Unknown Organization [facility] Address [address] [place] [address] Phone [phone] Care Team Providers Care Posting Clerk Name Role Phone Evelyn Andrews MD Primary Care Prov ider Reason for Visit * Reason Onset Date Comments Appointment 06/27/2023 Treatment Encounter Details Date Type Department Care Team (Late st Contact Info) Description 06/27/2023 Telephone Access Center, [place] [address] [facility] *DO NOT REMOVE THIS DEPARTMENT* [place] [address] Services, Scheduling [address] [place] [address] Appointment (Treatment) Allergies Active Allergy Reactions Criticality [...] 12/15/2022 Active Vitamin D (Ergocalciferol) 1.25 MG (83806 UT) Oral Capsule (Drisdol)Indication s:Diarrhea due to [...] morning. 90 Tablet 3 04/03/2023 Active Nystatin 861847 UNIT/GM External Cream Apply topically to affected [...] for Nausea. 90 Tablet 1 04/25/2023 Active Wbonzslxjn-FZUH-Xrb feine 50-325-40 MG Oral Tablet (Fioricet)Indicatio ns:Migraine [...] Noted Date Diagnosed Date Resolved Date Old CT (myocardial infarction) 03/01/2023 03/01/2023 Atherosclerosis of mi'kmaq co ronary artery without angina pectoris 02/08/2022 03/08/2022 Hyperparathyroidism 10/15/2021 03/01/20 23 Decreased GFR 08/17/2021 03/01/2023 Nephrolithiasis 02/16/2021 01/27/2022 Overview: Cysto 11/24/21 PFO with atrial septal aneurysm 05/16/2019 06/07/2022 Iron deficiency anemia 04/24/201911/29 Overview: More specific on PL Protein-calorie malnutrition 09/28/2018 09/23/2021 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/2021 VETERINARY TOXICOLOGIST demyelination 02/06/2017 05/02/2018 VETERINARY TOXICOLOGIST demyelination 02/06/2017 07/09/2019 Iron deficiency anemia 06/28/201109/20 Overview: ICD-10 update of inactive term Iron deficiency anemia 06/28/201109/20 Overview: ICD-10 update of inactive term Iron deficiency anemia pat paulino to inadequate dietary iron intake 09/26/2008 3 Infected postoperative seroma 06/02/2003 09/20/2012 [facility]200[facility] 11/2022 documented as of this encounter (statuses as of 06/27/2023) Immunizations Name Administration Dates Next Due COVID-19 mRNA, LNP-s, No Pre serve, 2-Dose Series ([employer]) 02/16/2021,11/25/2020,11/01/2020 COVID-19, MRNA-LNP, 23-24, P F, 30 MCG/0.3 mL, 12 YRS AND ABOVE, IM ([facility] 04/10/2023 Covid-19, Mrna, Lnp-s, Pf, B ivalent, 30 Mcg, IM, 12 yrs and above (Pfizer) 04/12/2022 Pneumococcal Conjugate Vacci ne, 20-valent ([id number]) 12/10/2021 Pneumococcal Polysaccharide PPV23 (Pneumovax) 07/21/2009 Seasonal [...] asking for a return call to reschedule [phone] documented in this encounter Plan of Treatment Upcoming Encounters Date Type Department Care Team (Late st Contact Info) Description 06/28/2023 3:30 PM EST Telemedicine [address] [address] Stacy Porter, PhD [address] [place] [address] 07/03/2023 11:15 AM EST Immunization/Injection Hematology/Oncology Treatment, [place] [address] [facility] [place] [address] Nurse, Med [address] [facility] [place] [address] 07/04/2023 6:30 PM EST Telemedicine Psychiatry, [place] [address] [place] [address] Alexis Serna MD [address] [place] [phone] 07/10/2023 11:20 AM EST Office Visit Neurology [facility] [address] [place] [address] Aris Mohr MD [address] [place] [address] 07/18/2023 11:40 AM EST Office Visit Family Medicine [address] [phone] Evelyn Andrews MD [address] [place] [address] [place] [address] 07/31/2023 1:30 PM EST Imaging Radiology [facility] [address] [place] [address] 08/15/2023 3:40 PM EST Office Visit Family Medicine [address] [place] [phone] Evelyn Andrews MD [address] [place] [address] [place] [address] 08/25/2023 10:15 AM EST Telemedicine Urology Grace Martinez [address] [place] [address] Christopher Almonte MD [address] [place] [address] 7, Telemed [facility] Urology Ex Rm [address] [place] [address] 09/12/2023 3:20 PM EDT Office Visit Nephrology [address] [place] [address] BolesEliza gil MD [address] [place] [address] 10/17/2023 3:20 PM EDT Office Visit Gastroenterology, [facility] [address] [place] [address] Milind Yadav MD [address] [place] [address] Health Maintenance Due Date Last Done Comments [...] Additional history exists CKD HGB USE SMARTSET 82973 06/12/202406/12, 03/13/2023, 03/13/2023, Additional history exists CKD PHOS USE SMARTSET 40293 06/20/2024 1211/2022, 06/12/2023, 05/22/2023, Additional history exists [...] this encounter Medical Devices Implanted Type Area Shape Hand Device Identifier Shelf Expiration Date Model / Serial / Lot Stent Axios 20mm - [id number] Implanted:Qty: 1 on 01/04/2021 by Leyda Garcia MD at OR [facility] N/A: Stomach [employer] : ENDOSCOPY 11/20/2021 [id number] / / [id number] documented as of this encounter Advance Directives Documents on File Type Date Recorded Patient Char Filter Tank Tender Head Expl anation POLST 01/03/2022 [place] [facility] FOR [facility]-SUSTAINING TREATMENT Latest [...] Other - (no specific identity) Health Care Char Filter Tank Tender Head (appointed verbally by patient or by statute hierarchy) Rowdy Hogue [facility] Health Care Char Filter Tank Tender Head (appointed verbally by patient or by statute hierarchy) Care Teams Posting Clerk Relationship Specialty Start Date End Date Evelyn Andrews MD [address] [place] [address] [place] [address] PCP - General Family Medicine 05/04/18 documented as of this encounter
--- OUTSIDE RECORDS SUMMARY | 2023-12-07 18:45 | External Medical Summary | Summary of Care ---
Author Name Unknown Organization [facility] Address [address] [place] [address] Phone [phone] Care Team Providers Care Drafter Seismograph Name Role Phone Evelyn Andrews MD Primary Care Prov ider Reason for Referral * Evaluate & Treat - Unlimited Visits (Within 10 days (routine)) - Authorized Specialty Diagnoses / Procedures Referred By Contac t Referred To Contact Psychiatry / Psychology Diagnoses MDD (major depressive disorder), recurrent severe, without psychosis (HCC) Alexis Serna MD [address] [place] [address] Referral ID Status Reason Start Date Expiration Date Visits Requested Visits Authorized [id number] Authorized Specialty Services Required 07/04/2023 999 999 Question Answer Referral Priority Within 10 days (routine) Where should this appointment be scheduled? 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 Please assess and treat. Reason for Visit * Reason Comments Medication Management Encounter Details Date Type Department Care Team (Late st Contact Info) Description 07/04/2023 6:30 PM EST Telemedicine Psychiatric [address] [place] [address] Alexis Serna MD [address] [place] [address] MDD (major depressive disorder), recurrent severe, without psychosis ([facility])* Allergies Active Allergy Reactions Criticality Noted Date [...] 23 Active Vitamin D (Ergocalciferol) 1.25 MG (94188 UT) Oral Capsule (Drisdol)Indicatio ns:Diarrhea due to [...] Nausea. 90 Tablet 1 04/25/20 23 Active Lkzcuokkps-WXKN-Zc ffeine 50-325-40 MG Oral Tablet (Fioricet)Indicati ons:Migraine [...] 120 mL 0 06/28/19 24 Active Nystatin 591656 UNIT/GM External Cream APPLY TO AFFECTED AREA TWICE A DAY 30 g 2 06/30/19 24 Active OLANZapine 5 MG Oral Tablet Disintegrating (zyPREXA zyDIS) Place 1 Tablet on tongue in the morning. 30 Tablet 5 07/04/19 24 Active OLANZapine 5 MG Oral Tablet (zyPREXA) Take 1 Tablet by mouth at bedtime. 30 Tablet 5 05/22/20 23 024 Discontinued documented as of this [...] MA (myocardial infarction) 03/01/2023 03/01/2023 Atherosclerosis of tunica-biloxi co ronary artery without angina pectoris 02/08/2022 03/08/2022 Hyperparathyroidism 10/15/2021 03/01/20 23 Decreased GFR 08/17/2021 03/01/2023 Nephrolithiasis 02/16/2021 01/27/2022 Overview: Cysto 11/24/21 PFO with atrial septal aneurysm 05/16/2019 06/07/2022 Iron deficiency anemia 04/24/201911/29 Overview: More specific on PL Protein-calorie malnutrition 09/28/2018 09/23/2021 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/2021 ROLL WRAPPER demyelination 02/06/2017 05/02/2018 ROLL WRAPPER demyelination 02/06/2017 07/09/2019 Iron deficiency anemia 06/28/201109/20 Overview: ICD-10 update of inactive term Iron deficiency anemia 06/28/201109/20 Overview: ICD-10 update of inactive term Iron deficiency anemia secbarbie morrisony to inadequate dietary iron intake 09/26/2008 3 Infected postoperative seroma 06/02/2003 09/20/2012 [facility]IS, [facility] SITE 05/14/200311/2022 documented as of this encounter (statuses as of 07/04/2023) Immunizations Name Administration Dates Next Due COVID-19 mRNA, LNP-s, No Pre serve, 2-Dose Series ([employer] 02/16/2021,11/25/2020,11/01/2020 COVID-19, MRNA-LNP, 23-24, P F, 30 MCG/0.3 mL, 12 YRS AND ABOVE, IM ([facility] 04/10/2023 Covid-19, Mrna, Lnp-s, Pf, B ivalent, 30 Mcg, IM, 12 yrs and above (Pfizer) 04/12/2022 Pneumococcal Conjugate Vacci ne, 20-valent ([id number]) 12/10/2021 Pneumococcal Polysaccharide PPV23 (Pneumovax) 07/21/2009 Seasonal [...] * Patient Instructions* Alexis Serna MD - 07/04/2023 8:36 PM EST Continue Mirtazapine 45mg at bedtime - for mood, sleep, and appetite Continue Alprazolam 0.25mg as needed for anxiety Continue Duloxetine 120mg a day Change to ODT olanzapine 5 mg a night for mood/sleep/appetite Continue individual psychotherapy ACT group psychotherapy referral placed IOP referral placed documented in this encounter Progress Notes * Alexis Serna MD - 07/04/2023 6:43 PM EST OUTPATIENT PSYCHIATRY FOLLOW UP APPOINTMENT DIVISION OF PSYCHIATRY [place] [address] Name: Chandrika Hogue Date Patient was Seen: 07/04/2023 Patient location: Car. PT initially connected to video appointment but due to technical problems and a poor connection the appointment was converted to telephone only. After connecting to the [employer] telephone, the patient was identified by name and date of . Pt was offered the opportunityto reschedule or proceed with telephone only appointment and they opted to proceed under new format, despite any limitations. PSYCHOTHERAPY & MEDICATION MANAGEMENT RETURN VISIT NOTE INTERVAL HISTORY: Chandrika Hogue is a 56 year old female seen today for f/u appointment. Reports weight is hovering around 72 lb Pt reports "I made it through [place], New Years" was worse. Was been feeling physically weak anddecided not to drive to her brothers home. Didn't want to risk driving to brothers house. Has some resentment towards brother that he didn't reach out and send her a train ticket, but has some understanding and notes "it wouldn't have been convenient for him". Notes she's now getting over a bad Covid infection, ongoing migraine which wakes her up, recently started on prednisone. Is also having more frequent falls. Her GI dr has considered sending pt to [facility]. Pt is frustrated with ongoing TPN, has thoughts to discontinue treatment. Feels it's not helping, prevents her from going out and doing the things she wants to do. Wishes she could have "one day of feeling good". At this point "I don't have any issue dying", doesn't "see any light". However, she denies having any active thoughts of suicide. Has taken only 2 xanax in the past month. Has been using marijuana from her brother. Reports its effective in calming her down and decreasingher pain, such as headache. No noticeable effect on her appetite or nausea. Notes having "no appetite". Goes out to eat at least once a week. Ate fried liver and onion today prepared by a friend. Pt denies current or recent active or passive suicidal ideation. Denies experiencing any current orrecent AVH, paranoia, and no other delusions endorsed. No signs or symptoms suggesting the presenceof guille or psychosis present on exam today. No observed or reported side effects to current medications. No increased appetite. Chandrika Hogue denies any change in medical history or medications since last visit. Past Medical History: Diagnosis Date CAD (coronary artery disease) Chronic diarrhea ROLL WRAPPER demyelination (HCC) 02/06/2017 Depressive disorder, not elsewhere [...] Capsule 0 Vitamin D (Ergocalciferol) 1.25 MG (03146 UT) Oral Capsule (Drisdol) TAKE ONE CAPSULE [...] as needed for Nausea. 90 Tablet 1 Qummbrdppq-XECZ-Hbvgatqe 50-325-40 MG Oral Tablet (Fioricet) TAKE ONE [...] as needed for Sleep. 30 Tablet 3 Diphenoxylate-Atropine 2.5-0.025 MG Oral Tablet (Lomotil) TAKE ONE TABLET BY MOUTH 4 TIMES DAILY ASNEEDED FOR DAIRRHEA 60 Tablet 0 Rizatriptan Benzoate 10 MG Oral Tablet (Maxalt) TAKE 1 TAB BY MOUTH DAILY NEEDED FOR MIGRAINE. 10 Tablet 5 Furosemide 20 MG Oral Tablet (Lasix) Take 1 Tablet by mouth in the morning. 7 Tablet 0 guaiFENesin-Codeine 100-10 MG/5ML Oral Syrup (Robitussin AC) Take 5 mL by mouth every 4 hours as needed for Cough. 120 mL 0 Nystatin 738371 UNIT/GM External Cream APPLY TO AFFECTED AREA TWICE A DAY 30 g 2 No current facility-administered medications for this visit. [...] Capsule 0 Vitamin D (Ergocalciferol) 1.25 MG (66191 UT) Oral Capsule (Drisdol) TAKE ONE CAPSULE [...] as needed for Nausea. 90 Tablet 1 Ifymoypkvp-UVCC-Flbqxqev 50-325-40 MG Oral Tablet (Fioricet) TAKE ONE [...] as needed for Sleep. 30 Tablet 3 Diphenoxylate-Atropine 2.5-0.025 MG Oral Tablet (Lomotil) TAKE ONE TABLET BY MOUTH 4 TIMES DAILY ASNEEDED FOR DAIRRHEA 60 Tablet 0 Rizatriptan Benzoate 10 MG Oral Tablet (Maxalt) TAKE 1 TAB BY MOUTH DAILY NEEDED FOR MIGRAINE. 10 Tablet 5 Furosemide 20 MG Oral Tablet (Lasix) Take 1 Tablet by mouth in the morning. 7 Tablet 0 guaiFENesin-Codeine 100-10 MG/5ML Oral Syrup (Robitussin AC) Take 5 mL by mouth every 4 hours as needed for Cough. 120 mL 0 Nystatin 216689 UNIT/GM External Cream APPLY TO AFFECTED AREA TWICE A DAY 30 g 2 No current facility-administered medications for this visit. Medication Comments documented by Cary Sheppard RN on 08/20/2019 at 1400. 2-25-20 Gets botox injections to forehead every 3 mo There were no vitals filed for this visit. Wt Readings from Last 3 Encounters: 06/20/23 34.5 kg (76 lb) 06/14/23 33.1 kg (73 lb) 04/24/23 33.6 kg (74 lb) There is no height or weight on file to calculate BMI. RECENT LABS/IMAGING: Recent Results (from the past 2016 hour(s)) COMPREHENSIVE METABOLIC PANEL Collection Time: 04/24/23 11:59 AM Result Value Ref Range BUN 23 (H) 6 - 20 mg/dL Creatinine 1.3 (H) 0.5 - 1.0 mg/dL Estimated Glomerular Filtration Rate 50 (L) >=60 mL/min Sodium 141 135 - 146 mmol/L Potassium 4.0 3.5 - 5.1 mmol/L Chloride 111 (H) 98 - 107 mmol/L CO2 19 (L) 22 - 32 mmol/L Anion Gap 11 7 - 15 mmol/L Glucose 84 70 - 120 mg/dL Albumin 3.3 (L) 3.8 - 5.0 g/dL AST 21 10 - 35 U/L Alkaline Phosphatase 69 35 - 130 U/L Bilirubin, Total 0.3 <=1.2 mg/dL Calcium 8.2 (L) 8.4 - 10.2 mg/dL Protein 5.4 (L) 6.0 - 8.3 g/dL ALT 23 10 - 35 U/L MAGNESIUM Collection Time: 04/24/23 11:59 AM Result Value Ref Range Magnesium 1.6 1.5 - 2.6 mg/dL PHOSPHORUS Collection Time: 04/24/23 11:59 AM Result Value Ref Range Phosphorus 2.9 2.5 - 4.8 mg/dL CALCIUM, IONIZED Collection Time: 04/24/23 11:59 AM Result Value Ref Range Calcium, Ionized 1.23 1.13 - 1.32 mmol/L COMPREHENSIVE METABOLIC PANEL Collection Time: 05/08/23 1:48 PM Result Value Ref Range BUN 27 (H) 6 - 20 mg/dL Creatinine 1.2 (H) 0.5 - 1.0 mg/dL Estimated Glomerular Filtration Rate 53 (L) >=60 mL/min Sodium 141 135 - 146 mmol/L Potassium 4.2 3.5 - 5.1 mmol/L Chloride 111 (H) 98 - 107 mmol/L CO2 20 (L) 22 - 32 mmol/L Anion Gap 10 7 - 15 mmol/L Glucose 103 70 - 120 mg/dL Albumin 3.1 (L) 3.8 - 5.0 g/dL AST 22 10 - 35 U/L Alkaline Phosphatase 79 35 - 130 U/L Bilirubin, Total 0.2 <=1.2 mg/dL Calcium 8.6 8.4 - 10.2 mg/dL Protein 5.6 (L) 6.0 - 8.3 g/dL ALT 15 10 - 35 U/L MAGNESIUM Collection Time: 05/08/23 1:48 PM Result Value Ref Range Magnesium 1.7 1.5 - 2.6 mg/dL PHOSPHORUS Collection Time: 05/08/23 1:48 PM Result Value Ref Range Phosphorus 3.0 2.5 - 4.8 mg/dL CALCIUM, IONIZED Collection Time: 05/08/23 1:48 PM Result Value Ref Range Calcium, Ionized 1.32 1.13 - 1.32 mmol/L COMPREHENSIVE METABOLIC PANEL Collection Time: 05/22/23 11:13 AM Result Value Ref Range BUN 24 (H) 6 - 20 mg/dL Creatinine 1.2 (H) 0.5 - 1.0 mg/dL Estimated Glomerular Filtration Rate 52 (L) >=60 mL/min Sodium 138 135 - 146 mmol/L Potassium 4.5 3.5 - 5.1 mmol/L Chloride 110 (H) 98 - 107 mmol/L CO2 18 (L) 22 - 32 mmol/L Anion Gap 10 7 - 15 mmol/L Glucose 96 70 - 120 mg/dL Albumin 3.2 (L) 3.8 - 5.0 g/dL AST 24 10 - 35 U/L Alkaline Phosphatase 86 35 - 130 U/L Bilirubin, Total 0.2 <=1.2 mg/dL Calcium 8.4 8.4 - 10.2 mg/dL Protein 5.3 (L) 6.0 - 8.3 g/dL ALT 28 10 - 35 U/L MAGNESIUM Collection Time: 05/22/23 11:13 AM Result Value Ref Range Magnesium 1.7 1.5 - 2.6 mg/dL PHOSPHORUS Collection Time: 05/22/23 11:13 AM Result Value Ref Range Phosphorus 3.4 2.5 - 4.8 mg/dL CALCIUM, IONIZED Collection Time: 05/22/23 11:13 AM Result Value Ref Range Calcium, Ionized 1.25 1.13 - 1.32 mmol/L COMPREHENSIVE METABOLIC PANEL Collection Time: 06/12/23 10:50 [...] Range Phosphorus 4.7 2.5 - 4.8 mg/dL MEDICAL REVIEW OF SYSTEMS: No CP or [...] event [place]-SUICIDE SEVERITY RATING SCALE Frequent Screener [place] Suicide Severity Rating Scale Results 07/04/2023 19:03 [place] SUICIDE SEVERITY RATING SCALE (C-SSRS) Have [...] or intent to act onthese thoughts. Patient agrees to try ODT formulation of Zyprexa which may improve absorption. She also accepts referral to ACT groups and IOP. She will consider continuing with current therapist or asking for a transfer. Plan: Patient Instructions Continue Mirtazapine 45mg at bedtime - for mood, sleep, and appetite Continue Alprazolam 0.25mg as needed for anxiety Continue Duloxetine 120mg a day Change to ODT olanzapine 5 mg a night for mood/sleep/appetite Continue individual psychotherapy ACT group psychotherapy referral placed IOP referral placed RTC: in 6 week(s) Treatment options and [...] and concurs with plan. Alexis Serna MD [facility] [phone] 07/04/2023 8:44 PM documented in this encounter Plan of Treatment Upcoming Encounters Date Type Department Care Team (Late st Contact Info) Description 07/10/2023 11:20 AM EST Office Visit Neurology [facility] [address] [place] [address] Aris Mohr MD [address] [place] [address] 07/18/2023 11:40 AM EST Office Visit Family [address] [phone] Evelyn Andrews MD [address] [place] [address] [place] [address] 07/31/2023 1:30 PM EST Imaging Radiology [address] [place] [address] 08/14/2023 11:30 AM EST Telemedicine Psychiatry, [place] [address] [place] [address] Alexis Serna MD [address] [place] [address] 08/15/2023 3:40 PM EST Office Visit Family [address] [phone] Evelyn Andrews MD [address] [place] [address] [place] [address] 08/25/2023 10:15 AM EST Telemedicine Urology Grace Martinez [address] [place] [address] Christopher Almonte MD [address] [place] [address] 7, Telemed [facility] Urology Ex Rm [address] [place] [address] 09/12/2023 3:20 PM EDT Office Visit Nephrology [address] [place] [address] Eliza Boles MD [address] [place] [address] 10/17/2023 3:20 PM EDT Office Visit Gastroenterology, [facility] [address] [place] [address] Milind Yadav MD [address] [place] [address] Scheduled Referrals Name Type Priority Associated Diagnoses Orde r Schedule INTENSIVE OUTPATIENT PROGRAM REFERRAL OP Referral Within 10 days (routine) MDD (major depressive disorder), recurrent severe, without psychosis (HCC) Ordered: 07/04/2023 Health Maintenance Due Date Last Done Comments [...] Additional history exists CKD HGB USE SMARTSET 04230 06/12/202406/12, 03/13/2023, 03/13/2023, Additional history exists CKD PHOS USE SMARTSET 98341 06/20/2024 12/11/2022, 06/12/2023, 05/22/2023, Additional history exists [...] this encounter Medical Devices Implanted Type Area Special Education Coordinator Device Identifier Shelf Expiration Date Model / Serial / Lot Stent Axios 20mm - [id number] Implanted:Qty: 1 on 01/04/2021 by Leyda Garcia MD at OR [facility] N/A: Stomach [employer] : ENDOSCOPY 11/20/2021 [id number] / / [id number] documented as of this encounter Visit Diagnoses Diagnosis MDD (major depressive disorder), recurrent severe, without psychosis (HCC)- Primary Major depressive disorder, recurrent episode, severe, without mention of psychotic behavior documented in this encounter Advance Directives Documents on File Type Date Recorded Patient Hogshead Hooper Expl anation POLST 01/03/2022 [place] [facility] FOR LIFE-SUSTAINING TREATMENT [...] Other - (no specific identity) Health Care Hogshead Hooper (appointed verbally by patient or by statute hierarchy) Rowdy Hogue [facility] Health Care Hogshead Hooper (appointed verbally by patient or by statute hierarchy) Care Teams Drafter Seismograph Relationship Specialty Start Date End Date Evelyn Andrews MD [address] [place] [address] [place] [address] PCP - General Family Medicine 05/04/18 documented as of this encounter
--- OUTSIDE RECORDS SUMMARY | 2023-12-07 18:45 | External Medical Summary | Summary of Care ---
Author Name Unknown Organization [facility] Address [address] [place] [address] Phone [phone] Care Team Providers Care Managing Principal Name Role Phone Evelyn Andrews MD Primary Care Prov ider Reason for Visit * Reason Comments Medication Management Encounter Details Date Type Department Care Team (Late st Contact Info) Description 06/21/2023 12:30 PM EST Pharmacy [facility] [address] [place] [address] Manage, Lauren Pharmacist Tpn [address] [place], [place] [id number] Allergies Active Allergy Reactions Criticality Noted Date [...] 12/15/2022 Active Vitamin D (Ergocalciferol) 1.25 MG (86112 UT) Oral Capsule (Drisdol)Indication s:Diarrhea due to [...] morning. 90 Tablet 3 04/03/2023 Active Nystatin 562015 UNIT/GM External Cream Apply topically to affected [...] for Nausea. 90 Tablet 1 04/25/2023 Active Lxvpjckupd-UXWT-Oxv feine 50-325-40 MG Oral Tablet (Fioricet)Indicatio ns:Migraine [...] Noted Date Diagnosed Date Resolved Date Old [place] (myocardial infarction) 03/01/2023 03/01/2023 Atherosclerosis of [place] co ronary artery without angina pectoris 02/08/2022 03/08/2022 Hyperparathyroidism 10/15/2021 03/01/20 23 Decreased GFR 08/17/2021 03/01/2023 Nephrolithiasis 02/16/2021 01/27/2022 Overview: Cysto 11/24/21 PFO with atrial septal aneurysm 05/16/2019 06/07/2022 Iron deficiency anemia 04/24/201911/29 Overview: More specific on PL Protein-calorie malnutrition 09/28/2018 09/23/2021 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/2021 POULTRY FARM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 02/06/2017 05/02/2018 POULTRY FARM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 02/06/2017 07/09/2019 Iron deficiency anemia 06/28/201109/20 [...] MCG/0.3 mL, 12 YRS AND ABOVE, IM (MPV-Comirnat) 04/10/2023 Covid-19, Mrna, Lnp-s, Pf, B ivalent, 30 Mcg, IM, 12 yrs and above (Pfizer) 04/12/2022 Pneumococcal Conjugate Vacci ne, 20-valent ([id number]) 12/10/2021 Pneumococcal Polysaccharide PPV23 (Pneumovax) 07/21/2009 Seasonal [...] encounter Progress Notes * Mayra Crook, [facility] - 06/21/2023 12:24 PM EST [facility] Adult TPN Documentation Patient Phone Numbers mobile [phone] Results for orders placed or performed during [...] 06/28/2023 10:45 AM EST Immunization/Injection Hematology/Oncology Treatment, [place] [address] [place] [address] Nurse, Med [address] [place] [address] 06/28/2023 3:30 PM EST Telemedicine Psychology, [address] [address] Stacy Porter, PhD [facility] [place] [address] 07/04/2023 6:30 PM EST Telemedicine Psychiatry, [address] [address] Alexis Serna MD [address] [place] [facility] [place] [address] 07/10/2023 11:20 AM EST Office Visit Neurology [facility] [address] [place] [address] Aris Mohr MD [address] [place] [address] 07/18/2023 11:40 AM EST Office Visit Family Medicine [address] [place] [phone] Evelyn Andrews MD [address] [place] [address] [place] [address] 07/31/2023 1:30 PM EST Imaging Radiology [address] 132 [facility] [place] [address] 08/15/2023 3:40 PM EST Office Visit Family Medicine [address] [place] [phone] Evelyn Andrews MD [address] [place] [address] [place] [address] 08/25/2023 10:15 AM EST Telemedicine Urology Grace Martinez [address] [place] [address] Christopher Almonte MD [address] [place] [address] [place] [address] 7, Telemed [facility] Urology Ex 132 [facility] [place] [address] 09/12/2023 3:20 PM EDT Office Visit Nephrology [address] [place] [address] Eliza Boles MD 200 [facility] [place] [address] 10/17/2023 3:20 PM EDT Office Visit Gastroenterology, [facility] [address] [place] [address] Milind Yadav MD [address] [place] [address] Health Maintenance Due Date Last Done Comments [...] Additional history exists CKD HGB USE SMARTSET 19085 06/12/202406/12, 03/13/2023, 03/13/2023, Additional history exists CKD PHOS USE SMARTSET 25349 06/20/202405/27, 06/12/2023, 05/22/2023, Additional history exists DTaP,Tdap,and [...] this encounter Medical Devices Implanted Type Area Customs Brokerage Manager Device Identifier Shelf Expiration Date Model / Serial / Lot Stent Axios 20mm - [id number] Implanted:Qty: 1 on 01/04/2021 by Leyda Garcia MD at OR [facility] N/A: Stomach [employer] : ENDOSCOPY 11/20/2021 [id number] / / [id number] documented as of this encounter Advance Directives Documents on File Type Date Recorded Patient Campus Interviews Intern Expl anation POLST 01/03/2022 [place] OR [facility] [...] Other - (no specific identity) Health Care Campus Interviews Intern (appointed verbally by patient or by statute hierarchy) Rowdy Mykel Efra [facility] Interviews Intern (appointed verbally by patient or by statute hierarchy) Care Teams Managing Principal Relationship Specialty Start Date End Date Evelyn Andrews MD [address] [place] [address] [place] [phone] PCP - General Family Medicine 05/04/18 documented as of this encounter
--- OUTSIDE RECORDS SUMMARY | 2023-12-07 18:46 | External Medical Summary | Summary of Care ---
Author Name Unknown Organization [facility] Address [address] [place] [address] Phone [phone] Care Team Providers Care Stock Counter Name Role Phone Evelyn Andrews MD Primary Care Prov ider Reason for Visit * Reason Comments Procedure Central line dressin g change & lab draw Encounter Details Date Type Department Care Team (Latest Contact Info) Description 06/20/2023 2:00 PM EST Immunization/ Injection Hematology/Oncology Treatment, [place] [address] [place] [address] Nurse, Med [address] [place] [address] Encounter for adjustment and management of vascular access device*; Severe protein-energy malnutrition (HCC); Myelopathy (HCC); Copper deficiency myeloneuropathy (HCC) Allergies Active Allergy Reactions Criticality Noted Date Comments Amoxicillin Edema airway High 01/22/2003 Oxybutynin 03/25/2023 Mouth ulcers Sulfa Antibiotics Edema airway High 08/15/2006 documented as of this encounter (statuses as of 06/20/2023) Medications Medication Sig Dispensed Refills Start Date [...] 12/15/2022 Active Vitamin D (Ergocalciferol) 1.25 MG (22766 UT) Oral Capsule (Drisdol)Indication s:Diarrhea due to [...] morning. 90 Tablet 3 04/03/2023 Active Nystatin 916463 UNIT/GM External Cream Apply topically to affected [...] for Nausea. 90 Tablet 1 04/25/2023 Active Vbywhkffao-UUZE-Tjh feine 50-325-40 MG Oral Tablet (Fioricet)Indicatio ns:Migraine [...] as of this encounter (statuses as of 06/20/2023) Active Problems Problem Noted Date Diagnosed Date [...] as of this encounter (statuses as of 06/20/2023) Resolved Problems Problem Noted Date Diagnosed Date Resolved Date Old [place] (myocardial infarction) 03/01/2023 03/01/2023 Atherosclerosis of [place] co ronary artery without angina pectoris 02/08/2022 03/08/2022 Hyperparathyroidism 10/15/2021 03/01/20 23 Decreased GFR 08/17/2021 03/01/2023 Nephrolithiasis 02/16/2021 01/27/2022 Overview: Cysto 11/24/21 PFO with atrial septal aneurysm 05/16/2019 06/07/2022 Iron deficiency anemia 04/24/201911/29 Overview: More specific on PL Protein-calorie malnutrition 09/28/2018 09/23/2021 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/2021 STEAM PRESS OPERATOR demyelination 02/06/2017 05/02/2018 STEAM PRESS OPERATOR demyelination 02/06/2017 07/09/2019 Iron deficiency anemia 06/28/201109/20 Overview: ICD-10 update of inactive term Iron deficiency anemia 06/28/201109/20 Overview: ICD-10 update of inactive term Iron deficiency anemia pat paulino to inadequate dietary iron intake 09/26/2008 3 Infected postoperative seroma 06/02/2003 09/20/2012 PANNICULITIS, [facility] SITE 05/14/2003 09/0 11/2022 documented as of this encounter (statuses as of 06/20/2023) Immunizations Name Administration Dates Next Due COVID-19 mRNA, LNP-s, No Pre serve, 2-Dose Series ([employer]) 02/16/2021,11/25/2020,11/01/2020 COVID-19, MRNA-LNP, 23-24, P F, 30 MCG/0.3 mL, 12 YRS AND ABOVE, IM ([facility]) 04/10/2023 Covid-19, Mrna, Lnp-s, Pf, B ivalent, 30 Mcg, IM, 12 yrs and above (Pfizer) 04/12/2022 Pneumococcal Conjugate Vacci ne, 20-valent ([id number]) 12/10/2021 Pneumococcal Polysaccharide PPV23 (Pneumovax) 07/21/2009 Seasonal [...] 06/28/2023 10:45 AM EST Immunization/Injection Hematology/Oncology Treatment, [place] 200 [place] [address] Nurse, Med 200 [facility] [place] [address] 06/28/2023 3:30 PM EST Telemedicine Psychology, [place] [address] [place] [address] Stacy Porter, PhD [address] [place], [place] [phone] 07/04/2023 6:30 PM EST Telemedicine Psychiatry, [place] [address] [address] [place], [place] [phone] Alexis Serna MD [address] [place] [address] 07/10/2023 11:20 AM EST Office Visit Neurology [facility] 200 [facility] [place] [address] Aris Mohr MD 200 [facility] [place] [address] 07/18/2023 11:40 AM EST Office Visit Family [address] [phone] Evelyn Andrews MD [address] [place] [address] [place] [address] 07/31/2023 1:30 PM EST Imaging Radiology [address] 132 [place] [address] 08/15/2023 3:40 PM EST Office Visit Family Medicine [address] [phone] Evelyn Andrews MD [address] [place] [address] [place] [address] 08/25/2023 10:15 AM EST Telemedicine Urology Grace Martinez [address] [place] [address] Christopher Almonte MD [address] [place] [address] 7, Telemed [facility] Urology Ex Rm [address] [place] [address] 09/12/2023 3:20 PM EDT Office Visit Nephrology [address] [place] [address] Eliza Boles MD [address] [place] [address] 10/17/2023 3:20 PM EDT Office Visit Gastroenterology, [facility] 132 [place] [address] Milind Yadav MD [address] [place] [address] Pending Results Name Type Priority Associated Diagnoses Date /Time CALCIUM, IONIZED Lab Routine Severe protein-energy malnutrition (HCC) 06/20/2023 2:50 PM EST Health Maintenance Due Date Last [...] Additional history exists CKD HGB USE SMARTSET 72179 06/12/202406/12, 03/13/2023, 03/13/2023, Additional history exists CKD PHOS USE SMARTSET 31454 06/20/202405/27, 06/12/2023, 05/22/2023, Additional history exists DTaP,Tdap,and [...] this encounter Medical Devices Implanted Type Area Crusher Tender Device Identifier Shelf Expiration Date Model / Serial / Lot Stent Axios 20mm - [id number] Implanted:Qty: 1 on 01/04/2021 by Leyda Garcia MD at OR [facility] N/A: Stomach [employer] : ENDOSCOPY 11/20/2021 [id number] / / [id number] documented as of this encounter Procedures Procedure Name Priority Date/Time Associated Diagnosis Comments COMPREHENSIVE METABOLIC PANEL Routine 06/20/2023 2:51 PM EST Severe protein-energy malnutrition (HCC) PHOSPHORUS Routine 06/20/2023 2:51 PM EST Severe protein-energy malnutrition (HCC) MAGNESIUM Routine 06/20/2023 2:51 PM EST Severe protein-energy malnutrition (HCC) documented in this encounter Results * PHOSPHORUS (06/20/2023 2:51 PM EST) Phosphorus 4.7 2.5 - 4.8 mg/dL 06/20/2023 3:57 PM EST [facility] 56- Blood Venous blood specimen / Unknown Venipuncture / Unknown 06/20/2023 2:51 PM EST 06/20/2023 2:50 PM EST [place] [facility] LAB BLOOD ORDERAB LES [facility] [address] [place] [address] * MAGNESIUM (06/20/2023 2:51 PM EST) Pathologist [facility] Magnesium 1.5 1.5 - 2.6 mg/dL 06/20/2023 3:57 PM EST [facility] 56 Blood Venous blood specimen / Unknown Venipuncture / Unknown 06/20/2023 2:51 PM EST 06/20/2023 2:50 PM EST Mayra A [facility] LAB BLOOD ORDERAB LES [facility] 56 [address] [place] [address] * (ABNORMAL) COMPREHENSIVE METABOLIC PANEL (06/20/2023 2:51 PM EST) BUN 38(H) 6 - 20 mg/dL 06/20/2023 3:57 PM EST [facility] 56- Creatinine 1.8(H) 0.5 - 1.0 mg/dL 06/20/2023 3:57 PM EST [facility] 56- Estimated Glomerular Filtration Rate 31(L) >=60 mL/min 06/20/2023 3:57 PM EST [facility] 56- Comment:eGFR is calculated b ased on the CKD-EPI 2020 equation Sodium 142 135 - 146 mmol/L 06/20/2023 3:57 PM [facility] 56- Potassium 4.4 3.5 - 5.1 mmol/L 06/20/2023 3:57 PM [facility] 56- Chloride 112(H) 98 - 107 mmol/L 06/20/2023 3:57 PM [facility] 56- CO2 15(L) 22 - 32 mmol/L 06/20/2023 3:57 PM [facility] 56- Anion Gap 15 7 - 15 mmol/L 06/20/2023 3:57 PM [facility] 56- Glucose 127(H) 70 - 120 mg/dL 06/20/2023 3:57 PM [facility] 56- Albumin 3.3(L) 3.8 - 5.0 g/dL 06/20/2023 3:57 PM [facility] 56- AST 21 10 - 35 U/L 06/20/2023 3:57 PM [facility] 56- Alkaline Phosphatase 85 35 - 130 U/L 06/20/2023 3:57 PM [facility] 56- Bilirubin, Total 0.3 <=1.2 mg/dL 06/20/2023 3:57 PM [facility] 56- Calcium 8.1(L) 8.4 - 10.2 mg/dL 06/20/2023 3:57 PM [facility] 56- Protein 5.3(L) 6.0 - 8.3 g/dL 06/20/2023 3:57 PM [facility] 56- ALT 32 10 - 35 U/L 06/20/2023 3:57 PM [facility] 56- Blood Venous blood specimen / Unknown Venipuncture / Unknown 06/20/2023 2:51 PM EST 06/20/2023 2:50 PM EST Mayra Crook [facility] LAB BLOOD ORDERAB LES [facility] [address] [place] [address] documented in this encounter Visit Diagnoses Diagnosis [...] Documents on File Type Date Recorded Patient Ocean Import Representative Expl anation POLST 01/03/2022 [place] OR [facility] FOR [...] Other - (no specific identity) Health Care Ocean Import Representative (appointed verbally by patient or by statute hierarchy) Rowdy Mykel Kraus Health Care Ocean Import Representative (appointed verbally by patient or by statute hierarchy) Care Teams Stock Counter Relationship Specialty Start Date End Date Evelyn Andrews MD [address] [place] [address] [place] [address] PCP - General Family Medicine 05/04/18 documented as of this encounter
--- OUTSIDE RECORDS SUMMARY | 2023-12-07 18:46 | External Medical Summary ---
Author Name Unknown Address Unknown Organization [facility] [place] [address] Laboratory Report Ordering Provider Test Date Status TONY RAMIREZ 06/20/2023 14:51:18 Final Observation Date Value Abnormality Reference (Units ) Status Phosphate 06/20/2023 14:51:18 4.7 2.5-4.8 (m g/dL) Final Performing Location [facility] [place] [address]
--- OUTSIDE RECORDS SUMMARY | 2023-12-07 18:46 | External Medical Summary ---
Author Name Unknown Address Unknown Organization [facility] [place] [address] Laboratory Report Ordering Provider Test Date Status TONY RAMIREZ 06/20/2023 14:51:18 Final Observation Date Value Abnormality Reference (Units ) Status Magnesium 06/20/2023 14:51:18 1.5 1.5-2.6 (m g/dL) Final Performing Location [facility] [address]
--- OUTSIDE RECORDS SUMMARY | 2023-12-07 18:46 | External Medical Summary ---
Author Name Unknown Address Unknown Organization [facility] 56[address] [place] [address] Laboratory Report Ordering Provider Test Date Status TONY RAMIREZ 06/20/2023 14:51:18 Final Observation Date Value Abnormality Reference (Units ) Status BUN 06/20/2023 14:51:18 38 Above high normal 6-20 (mg/dL) Final Creatinine 06/20/2023 14:51:18 1.8 Above high normal 0.5-1.0 (mg/dL) Final Glomerular filtration rate/1.73 sq M.predicted [Volume Rate/Area] in Serum, Plasma or Blood by Creatinine-based formula (CKD-EPI) 06/20/2023 14:51:18 31 Below low normal >=60 (mL/min) Final eGFR is calculated based on the CKD-EPI 2020 equation SODIUM 06/20/2023 14:51:18 142 135-146 (m mol/L) Final Potassium 06/20/2023 14:51:18 4.4 3.5-5.1 (m mol/L) Final Cl 06/20/2023 14:51:18 112 Above high normal 98 -107 (mmol/L) Final CO2 06/20/2023 14:51:18 15 Below low normal 22- 32 (mmol/L) Final Anion gap 06/20/2023 14:51:18 15 7-15 (mmol /L) Final Glucose 06/20/2023 14:51:18 127 Above high normal 70 -120 (mg/dL) Final Albumin 06/20/2023 14:51:18 3.3 Below low normal 3.8 -5.0 (g/dL) Final AST (Aspartate aminotransferase) 06/20/2023 14:51:18 21 10-35 (U/L) Fin al Alk Phos 06/20/2023 14:51:18 85 35-130 (U/ L) Final Bilirubin, Total 06/20/2023 14:51:18 0.3 <=1 .2 (mg/dL) Final Calcium 06/20/2023 14:51:18 8.1 Below low normal 8.4 -10.2 (mg/dL) Final Protein 06/20/2023 14:51:18 5.3 Below low normal 6.0 -8.3 (g/dL) Final ALT (Alanine aminotransferase) 06/20/2023 14:51:18 32 10-35 (U/L) Matthew belle Performing Location [facility] [place] [address]
--- OUTSIDE RECORDS SUMMARY | 2023-12-07 18:46 | External Medical Summary | Summary of Care ---
Author Name Unknown Organization [facility] Address [address] [place] [address] Phone [phone] Care Team Providers Care Cleaning Supervisor Name Role Phone Evelyn Andrews MD Primary Care Prov ider Encounter Details Date Type Department Care Team (Late st Contact Info) Description 06/20/2023 Orders Only Hematology/Oncology, [facility] [address] [place] [address] Juve Emanuel MD 200 [place] [address] Allergies Active Allergy Reactions Criticality Noted Date [...] 12/15/2022 Active Vitamin D (Ergocalciferol) 1.25 MG (42307 UT) Oral Capsule (Drisdol)Indication s:Diarrhea due to [...] morning. 90 Tablet 3 04/03/2023 Active Nystatin 377989 UNIT/GM External Cream Apply topically to affected [...] for Nausea. 90 Tablet 1 04/25/2023 Active Rnekhabfun-FJGM-Cug feine 50-325-40 MG Oral Tablet (Fioricet)Indicatio ns:Migraine [...] [place] (myocardial infarction) 03/01/2023 03/01/2023 Atherosclerosis of [place] co ronary artery without angina pectoris 02/08/2022 03/08/2022 Hyperparathyroidism 10/15/2021 03/01/20 23 Decreased GFR 08/17/2021 03/01/2023 Nephrolithiasis 02/16/2021 01/27/2022 Overview: Cysto 11/24/21 PFO with atrial septal aneurysm 05/16/2019 06/07/2022 Iron deficiency anemia 04/24/201911/29 Overview: More specific on PL Protein-calorie malnutrition 09/28/2018 09/23/2021 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/2021 REGIONAL PSYCHIATRIC DIRECTOR demyelination 02/06/2017 05/02/2018 REGIONAL PSYCHIATRIC DIRECTOR demyelination 02/06/2017 07/09/2019 Iron deficiency anemia 06/28/201109/20 Overview: ICD-10 update of inactive term Iron deficiency anemia 06/28/201109/20 Overview: ICD-10 update of inactive term Iron deficiency anemia porschebarbie morrisony to inadequate dietary iron intake 09/26/2008 3 Infected postoperative seroma 06/02/2003 09/20/2012 PANNICULITIS, UNSP SITE 05/14/2003 09/0 11/2022 documented as of this encounter (statuses as of 06/20/2023) Immunizations Name Administration Dates Next Due COVID-19 mRNA, LNP-s, No Pre serve, 2-Dose Series ([employer]) 02/16/2021,11/25/2020,11/01/2020 COVID-19, MRNA-LNP, 23-24, P F, 30 MCG/0.3 mL, 12 YRS AND ABOVE, IM ([facility]) 04/10/2023 Covid-19, Mrna, Lnp-s, Pf, B ivalent, 30 Mcg, IM, 12 yrs and above (Pfizer) 04/12/2022 Pneumococcal Conjugate Vacci ne, 20-valent ([id number]) 12/10/2021 Pneumococcal Polysaccharide PPV23 (Pneumovax) 07/21/2009 Seasonal [...] 06/28/2023 10:45 AM EST Immunization/Injection Hematology/Oncology Treatment, [place] [address] [place] [address] Nurse, Med [address] [place] [address] 06/28/2023 3:30 PM EST Telemedicine Psychology, [address] [address] Stacy Porter, PhD [facility] [place] [address] 07/04/2023 6:30 PM EST Telemedicine Psychiatry, [address] [address] Alexis Serna MD [facility] [place] [address] 07/10/2023 11:20 AM EST Office Visit Neurology [facility] [address] [place] [address] Aris Mohr MD [address] [place] [address] 07/18/2023 11:40 AM EST Office Visit Family Medicine [address] [place] [address] Evelyn Andrews MD [address] [place] [address] [place] [address] 07/31/2023 1:30 PM EST Imaging Radiology [address] 132 [facility] [place] [address] 08/15/2023 3:40 PM EST Office Visit Family Medicine [address] [place] [phone] Evelyn Andrews MD [address] [place] [address] [place] [address] 08/25/2023 10:15 AM EST Telemedicine Urology Grace Martinez [address] [place] [address] Christopher Almonte MD [address] [place] [address] 7, Telemed [facility] Urology Ex 132 [facility] [place] [address] 09/12/2023 3:20 PM EDT Office Visit Nephrology [address] [place] [address] Eliza Boles MD [address] [place] [address] 10/17/2023 3:20 PM EDT Office Visit Gastroenterology, [facility] [address] [place] [address] Milind Yadav MD 132 [place] [address] Health Maintenance Due Date Last Done Comments [...] Additional history exists CKD HGB USE SMARTSET 53082 06/12/202406/12, 03/13/2023, 03/13/2023, Additional history exists CKD PHOS USE SMARTSET 66455 06/20/202405/27, 06/12/2023, 05/22/2023, Additional history exists DTaP,Tdap,and [...] this encounter Medical Devices Implanted Type Area Lithographing Machine Operator Device Identifier Shelf Expiration Date Model / Serial / Lot Stent Axios 20mm - [id number] Implanted:Qty: 1 on 01/04/2021 by Leyda Garcia MD at OR [facility] N/A: Stomach [employer] : ENDOSCOPY 11/20/2021 [id number] / / [id number] documented as of this encounter Advance Directives Documents on File Type Date Recorded Patient Mid Wife Expl anation POLST 01/03/2022 [place] OR [facility] FOR LIFE-SUSTAINING TREATMENT Latest Code [...] Other - (no specific identity) Health Care Mid Wife (appointed verbally by patient or by statute hierarchy) Rowdy Hogue Sibling Health Care Mid Wife (appointed verbally by patient or by statute hierarchy) Care Teams Cleaning Supervisor Relationship Specialty Start Date End Date Evelyn Andrews MD [address] [place] [address] [place] [phone] PCP - General Family Medicine 05/04/18 documented as of this encounter
--- OUTSIDE RECORDS SUMMARY | 2023-12-07 18:46 | External Medical Summary | Summary of Care ---
Author Name Unknown Organization [facility] Address [address] [place] [address] Phone [phone] Care Team Providers Care Building Insulation Supervisor Name Role Phone Evelyn Andrews MD Primary Care Prov ider Reason for Visit * Reason Comments Procedure Central line dressin g change & lab draw Encounter Details Date Type Department Care Team (Latest Contact Info) Description 06/20/2023 2:00 PM EST Immunization/ Injection Hematology/Oncology Treatment, [place] 200 [place] [address] Nurse, Med 200 [place] [address] Encounter for adjustment and management of vascular [...] 12/15/2022 Active Vitamin D (Ergocalciferol) 1.25 MG (73686 UT) Oral Capsule (Drisdol)Indication s:Diarrhea due to [...] morning. 90 Tablet 3 04/03/2023 Active Nystatin 174837 UNIT/GM External Cream Apply topically to affected [...] for Nausea. 90 Tablet 1 04/25/2023 Active Isaqqqedlq-ZBBN-Ojf feine 50-325-40 MG Oral Tablet (Fioricet)Indicatio ns:Migraine [...] [place] (myocardial infarction) 03/01/2023 03/01/2023 Atherosclerosis of marshall co ronary artery without angina pectoris 02/08/2022 03/08/2022 Hyperparathyroidism 10/15/2021 03/01/20 23 Decreased GFR 08/17/2021 03/01/2023 Nephrolithiasis 02/16/2021 01/27/2022 Overview: Cysto 11/24/21 PFO with atrial septal aneurysm 05/16/2019 06/07/2022 Iron deficiency anemia 04/24/201911/29 Overview: More specific on PL Protein-calorie malnutrition 09/28/2018 09/23/2021 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/2021 OVERHEAD FOREMAN demyelination 02/06/2017 05/02/2018 OVERHEAD FOREMAN demyelination 02/06/2017 07/09/2019 Iron deficiency anemia 06/28/201109/20 Overview: ICD-10 update of inactive term Iron deficiency anemia 06/28/201109/20 Overview: ICD-10 update of inactive term Iron deficiency anemia pat paulino to inadequate dietary iron intake 09/26/2008 3 Infected postoperative seroma 06/02/2003 09/20/2012 PANNICULITIS, [facility] SITE 05/14/2003 09/0 11/2022 documented as of this encounter (statuses as of 06/20/2023) Immunizations Name Administration Dates Next Due COVID-19 mRNA, LNP-s, No Pre serve, 2-Dose Series (RF Arrays) 02/16/2021,11/25/2020,11/01/2020 COVID-19, MRNA-LNP, 23-24, P F, 30 MCG/0.3 mL, 12 YRS AND ABOVE, IM ([facility]) 04/10/2023 Covid-19, Mrna, Lnp-s, Pf, B ivalent, 30 Mcg, IM, 12 yrs and above (Pfizer) 04/12/2022 Pneumococcal Conjugate Vacci ne, 20-valent ([id number]) 12/10/2021 Pneumococcal Polysaccharide PPV23 (Pneumovax) 07/21/2009 Seasonal [...] 06/28/2023 10:45 AM EST Immunization/Injection Hematology/Oncology Treatment, [place] [address] [place] [address] Nurse, Med 200 [facility] [place] [address] 06/28/2023 3:30 PM EST Telemedicine Psychology, [place] [address] [place] [address] Stacy Porter, PhD [address] [place], [place] [address] 07/04/2023 6:30 PM EST Telemedicine Psychiatry, [place] [address] [place], [place] [phone] Alexis Serna MD [address] [place] [address] 07/10/2023 11:20 AM EST Office Visit Neurology [facility] 200 [facility] [place] [address] Aris Mohr MD 200 [facility] [place] [address] 07/18/2023 11:40 AM EST Office Visit Family [address] [phone] Evelyn Andrews MD [address] [place] [address] [place] [address] 07/31/2023 1:30 PM EST Imaging Radiology [address] 132 [place] [address] 08/15/2023 3:40 PM EST Office Visit Family Medicine [address] [phone] Evelyn Andrews MD [address] [place] [address] [place] [address] 08/25/2023 10:15 AM EST Telemedicine Urology Grace Martinez [address] [place] [address] [place] [address] Christopher Almonte MD [address] [place] [address] [place] [address] 7, Telemed [facility] Urology Ex Rm [address] [place] [address] 09/12/2023 3:20 PM EDT Office Visit Nephrology [address] [place] [address] Eliza Boles MD [address] [place] [address] 10/17/2023 3:20 PM EDT Office Visit Gastroenterology, [facility] 132 [place] [address] Milind Yadav MD [address] [place] [address] Pending Results Name Type Priority Associated Diagnoses Date /Time CALCIUM, IONIZED Lab Routine Severe protein-energy malnutrition (HCC) 06/20/2023 2:51 PM EST Health Maintenance Due Date Last [...] Additional history exists CKD HGB USE SMARTSET 27991 06/12/202406/12, 03/13/2023, 03/13/2023, Additional history exists CKD PHOS USE SMARTSET 37637 06/20/202405/27, 06/12/2023, 05/22/2023, Additional history exists DTaP,Tdap,and [...] this encounter Medical Devices Implanted Type Area Necktie Operator Pockets And Pieces Device Identifier Shelf Expiration Date Model / Serial / Lot Stent Axios 20mm - [id number] Implanted:Qty: 1 on 01/04/2021 by Leyda Garcia MD at OR [facility] N/A: Stomach [employer] : ENDOSCOPY 11/20/2021 [id number] / / [id number] documented as of this encounter Procedures Procedure [...] - 4.8 mg/dL 06/20/2023 3:57 PM EST [facility] 56- Blood Venous blood specimen / Unknown Venipuncture / Unknown 06/20/2023 2:51 PM EST 06/20/2023 2:50 PM EST [facility] LAB BLOOD ORDERAB LES [facility] [address] [place] [address] * MAGNESIUM (06/20/2023 2:51 PM EST) Pathologist [facility] Magnesium 1.5 1.5 - 2.6 mg/dL 06/20/2023 3:57 PM EST [facility] 56 Blood Venous blood specimen / Unknown Venipuncture / Unknown 06/20/2023 2:51 PM EST 06/20/2023 2:50 PM EST Mayra A [facility] LAB BLOOD ORDERAB LES [facility] 56 [address] [place] [address] * (ABNORMAL) COMPREHENSIVE METABOLIC PANEL (06/20/2023 2:51 PM EST) BUN 38(H) 6 - 20 mg/dL 06/20/2023 3:57 PM EST [facility] 56- Creatinine 1.8(H) 0.5 - 1.0 mg/dL 06/20/2023 3:57 PM EST [facility] 56- Estimated Glomerular Filtration Rate 31(L) >=60 mL/min 06/20/2023 3:57 PM EST [facility] 56- Comment:eGFR is calculated b ased on the CKD-EPI 2020 equation Sodium 142 135 - 146 mmol/L 06/20/2023 3:57 PM [facility] 56- Potassium 4.4 3.5 - 5.1 mmol/L 06/20/2023 3:57 PM [facility] 56- Chloride 112(H) 98 - 107 mmol/L 06/20/2023 3:57 PM [facility] 56- CO2 15(L) 22 - 32 mmol/L 06/20/2023 3:57 PM [facility] 56- Anion Gap 15 7 - 15 mmol/L 06/20/2023 3:57 PM [facility] 56- Glucose 127(H) 70 - 120 mg/dL 06/20/2023 3:57 PM [facility] 56- Albumin 3.3(L) 3.8 - 5.0 g/dL 06/20/2023 3:57 PM [facility] 56- AST 21 10 - 35 U/L 06/20/2023 3:57 PM [facility] 56- Alkaline Phosphatase 85 35 - 130 U/L 06/20/2023 3:57 PM [facility] 56- Bilirubin, Total 0.3 <=1.2 mg/dL 06/20/2023 3:57 PM [facility] 56- Calcium 8.1(L) 8.4 - 10.2 mg/dL 06/20/2023 3:57 PM [facility] 56- Protein 5.3(L) 6.0 - 8.3 g/dL 06/20/2023 3:57 PM [facility] 56- ALT 32 10 - 35 U/L 06/20/2023 3:57 PM [facility] 56- Blood Venous blood specimen / Unknown Venipuncture / Unknown 06/20/2023 2:51 PM EST 06/20/2023 2:50 PM EST Mayra Crook [facility] LAB BLOOD ORDERAB LES [facility] [address] [place] [address] documented in this encounter Visit Diagnoses Diagnosis [...] Flush, Starting on Mon06/20/23 at 1602, Until Mon06/21/23 at 1601, For 24 hours, Do not flush if lock, PICC, or central line not in place; IV infusing or unable to flush. Given 06/20/2023 4:03 PM EST 500 Units sodium chloride 0.9 % flush central line 10 mL 10 mL, IV Push, PRN Other, IV Flush, Starting on Mon06/20/23 at 1602, Until Mon06/21/23 at 1601, For 24 hours, Do not flush if lock, PICC, or central line not in place; IV infusing or unable to flush. Given 06/20/2023 4:02 PM EST 10 mL documented in this encounter Advance Directives Documents on File Type Date Recorded Patient Family Assistant Expl anation POLST 01/03/2022 [place] OR [facility] FOR LIFE-SUSTAINING TREATMENT [...] Other - (no specific identity) Health Care Family Assistant (appointed verbally by patient or by statute hierarchy) Rowdy Mykel Kraus Health Care Family Assistant (appointed verbally by patient or by statute hierarchy) Care Teams Building Insulation Supervisor Relationship Specialty Start Date End Date Evelyn Andrews MD [address] [place] [address] [place] [address] PCP - General Family Medicine 05/04/18 documented as of this encounter
--- OUTSIDE RECORDS SUMMARY | 2023-12-07 18:46 | External Medical Summary ---
Author Name Unknown Address Unknown Organization K01:LABORATORY [facility] - [address] [facility] [place] [address] Laboratory Report Ordering Provider Test Date Status ASHLEYCOREEN HERRERAANOOP 06/20/2023 14:50:00 Final Observation Date Value Abnormality Reference (Units ) Status Calcium.ionized [Moles/volume] in Serum or Plasma by Ion-selective membrane electrode (ISE) 06/20/2023 14:50:00 1.23 1.13-1.32 (mmol/L) Final This test was developed and its performance characteristics dtermined by [employer]. It has not been cleared or approved by the US Food and Drug Administration Performing Location LAB[facility]ORY [facility] - [address] [place] [address]
--- OUTSIDE RECORDS SUMMARY | 2023-12-07 18:46 | External Medical Summary | Summary of Care ---
Author Name Unknown Organization [facility] Address [address] [place] [address] Phone [phone] Care Team Providers Care Customer Service Correspondence Clerk Name Role Phone Evelyn Andrews MD Primary Care Prov ider Encounter Details Date Type Department Care Team (Late st Contact Info) Description 06/21/2023 Orders Only Nutrition & Weight Management, [place] [address] [place], [place] [phone] Vic Wilkerson [address] [place], [place] [id number] Allergies Active Allergy Reactions Criticality Noted Date [...] 12/15/2022 Active Vitamin D (Ergocalciferol) 1.25 MG (83045 UT) Oral Capsule (Drisdol)Indication s:Diarrhea due to [...] morning. 90 Tablet 3 04/03/2023 Active Nystatin 426487 UNIT/GM External Cream Apply topically to affected [...] for Nausea. 90 Tablet 1 04/25/2023 Active Pyekelfbvt-HQQO-Rik feine 50-325-40 MG Oral Tablet (Fioricet)Indicatio ns:Migraine [...] [place] (myocardial infarction) 03/01/2023 03/01/2023 Atherosclerosis of lime co ronary artery without angina pectoris 02/08/2022 03/08/2022 Hyperparathyroidism 10/15/2021 03/01/20 23 Decreased GFR 08/17/2021 03/01/2023 Nephrolithiasis 02/16/2021 01/27/2022 Overview: Cysto 11/24/21 PFO with atrial septal aneurysm 05/16/2019 06/07/2022 Iron deficiency anemia 04/24/201911/29 Overview: More specific on PL Protein-calorie malnutrition 09/28/2018 09/23/2021 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/2021 SHOP FOREMAN demyelination 02/06/2017 05/02/2018 SHOP FOREMAN demyelination 02/06/2017 07/09/2019 Iron deficiency anemia [...] MCG/0.3 mL, 12 YRS AND ABOVE, IM ([employer]-Comirnaty) 04/10/2023 Covid-19, Mrna, Lnp-s, Pf, B ivalent, 30 Mcg, IM, 12 yrs and above (Pfizer) 04/12/2022 Pneumococcal Conjugate Vacci ne, 20-valent ([id number]) 12/10/2021 Pneumococcal Polysaccharide PPV23 (Pneumovax) 07/21/2009 Seasonal [...] 06/28/2023 10:45 AM EST Immunization/Injection Hematology/Oncology Treatment, [place] 200 [facility] [address] Nurse, Med 200 [place] [address] 06/28/2023 3:30 PM EST Telemedicine Psychology, [place] [address] [place] [address] Stacy Porter, PhD [address] [place] [address] 07/04/2023 6:30 PM EST Telemedicine Psychiatry, [place] [address] [place] [address] Alexis Serna MD [address] [place] [address] 07/10/2023 11:20 AM EST Office Visit Neurology [facility] 200 [place] [address] Aris Mohr MD [address] [place] [address] 07/18/2023 11:40 AM EST Office Visit Family Medicine [address] [phone] Evelyn Andrews MD [address] [place] [address] [place] [address] 07/31/2023 1:30 PM EST Imaging Radiology [address] 132 [facility] [place] [address] 08/15/2023 3:40 PM EST Office Visit Family Medicine [address] [phone] Evelyn Andrews MD [address] [place] [address] [place] [address] 08/25/2023 10:15 AM EST Telemedicine Urology Grace Martinez [address] [place] [address] [place] [address] Christopher Almonte MD [address] [place] [address] [place] [address] 7, Telemed [facility] Urology Ex 132 [facility] [place] [address] 09/12/2023 3:20 PM EDT Office Visit Nephrology [address] [place] [address] Eliza Boles MD [address] [place] [address] 10/17/2023 3:20 PM EDT Office Visit Gastroenterology, [facility] 132 [facility] [place] [address] Milind Yadav MD [address] [place] [address] Health Maintenance Due Date Last Done Comments [...] Additional history exists CKD HGB USE SMARTSET 13552 06/12/202406/12, 03/13/2023, 03/13/2023, Additional history exists CKD PHOS USE SMARTSET 79341 06/20/202405/27, 06/12/2023, 05/22/2023, Additional history exists DTaP,Tdap,and [...] this encounter Medical Devices Implanted Type Area Transportation Department Supervisor Device Identifier Shelf Expiration Date Model / Serial / Lot Stent Axios 20mm - [id number] Implanted:Qty: 1 on 01/04/2021 by Leyda Garcia MD at OR [facility] N/A: Stomach [employer] : ENDOSCOPY 11/20/2021 [id number] / / [id number] documented as of this encounter Advance Directives Documents on File Type Date Recorded Patient Slicing Machine Operator/Tender Expl anation POLST 01/03/2022 [place] OR [facility] FOR LIFE-SUSTAINING TREATMENT [...] Other - (no specific identity) Health Care Slicing Machine Operator/Tender (appointed verbally by patient or by statute hierarchy) Rowdy Hogue [facility] Health Care Slicing Machine Operator/Tender (appointed verbally by patient or by statute hierarchy) Care Teams Customer Service Correspondence Clerk Relationship Specialty Start Date End Date Evelyn Andrews MD [address] [place] [address] [place] [address] PCP - General Family Medicine 05/04/18 documented as of this encounter
--- OUTSIDE RECORDS SUMMARY | 2023-12-07 18:46 | External Medical Summary | Summary of Care ---
Author Name Unknown Organization [facility] Address [address] [place] [address] Phone [phone] Care Team Providers Care Ic Design Manager Name Role Phone Evelyn Andrews MD Primary Care Prov ider Reason for Visit * Reason Comments Procedure Central line dressin g change & lab draw Encounter Details Date Type Department Care Team (Latest Contact Info) Description 06/20/2023 2:00 PM EST Immunization/ Injection Hematology/Oncology Treatment, [place] [address] [place] [address] Nurse, Med 200 [place] [address] Encounter for adjustment and management of vascular [...] 12/15/2022 Active Vitamin D (Ergocalciferol) 1.25 MG (09786 UT) Oral Capsule (Drisdol)Indication s:Diarrhea due to [...] morning. 90 Tablet 3 04/03/2023 Active Nystatin 695340 UNIT/GM External Cream Apply topically to affected [...] for Nausea. 90 Tablet 1 04/25/2023 Active Wnpezmgfsb-UIPG-Set feine 50-325-40 MG Oral Tablet (Fioricet)Indicatio ns:Migraine [...] [place] (myocardial infarction) 03/01/2023 03/01/2023 Atherosclerosis of tolowa dee-ni' co ronary artery without angina pectoris 02/08/2022 03/08/2022 Hyperparathyroidism 10/15/2021 03/01/20 23 Decreased GFR 08/17/2021 03/01/2023 Nephrolithiasis 02/16/2021 01/27/2022 Overview: Cysto 11/24/21 PFO with atrial septal aneurysm 05/16/2019 06/07/2022 Iron deficiency anemia 04/24/201911/29 Overview: More specific on PL Protein-calorie malnutrition 09/28/2018 09/23/2021 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/2021 RESIDENT CARE AID demyelination 02/06/2017 05/02/2018 RESIDENT CARE AID demyelination 02/06/2017 07/09/2019 Iron deficiency anemia 06/28/201109/20 Overview: ICD-10 update of inactive term Iron deficiency anemia 06/28/201109/20 Overview: ICD-10 update of inactive term Iron deficiency anemia pat paulino to inadequate dietary iron intake 09/26/2008 3 Infected postoperative seroma 06/02/2003 09/20/2012 PANNICULITIS, [facility] SITE 05/14/2003 09/0 11/2022 documented as of this encounter (statuses as of 06/20/2023) Immunizations Name Administration Dates Next Due COVID-19 mRNA, LNP-s, No Pre serve, 2-Dose Series (Ozsale) 02/16/2021,11/25/2020,11/01/2020 COVID-19, MRNA-LNP, 23-24, P F, 30 MCG/0.3 mL, 12 YRS AND ABOVE, IM (UI [facility]) 04/10/2023 Covid-19, Mrna, Lnp-s, Pf, B ivalent, 30 Mcg, IM, 12 yrs and above (Pfizer) 04/12/2022 Pneumococcal Conjugate Vacci ne, 20-valent (Ioaidsx16) 12/10/2021 Pneumococcal Polysaccharide PPV23 (Pneumovax) 07/21/2009 Seasonal [...] 06/28/2023 10:45 AM EST Immunization/Injection Hematology/Oncology Treatment, [place] 200 [facility] [place] [address] Nurse, Med 200 [facility] [place] [address] 06/28/2023 3:30 PM EST Telemedicine Psychology, [place] [address] [place] [address] Stacy Porter, PhD [address] [place], [place] [phone] 07/04/2023 6:30 PM EST Telemedicine Psychiatry, [place] [address] [place], [place] [phone] Alexis Serna MD [address] [place] [address] 07/10/2023 11:20 AM EST Office Visit Neurology [facility] 200 [facility] [place] [address] Aris Mohr MD 200 [facility] [place] [address] 07/18/2023 11:40 AM EST Office Visit Family [address] [phone] Evelyn Andrews MD [address] [place] [address] [place] [address] 07/31/2023 1:30 PM EST Imaging Radiology [address] 132 [place] [address] 08/15/2023 3:40 PM EST Office Visit Family Medicine [address] [phone] Evelyn Andrews MD [address] [place] [address] [place] [address] 08/25/2023 10:15 AM EST Telemedicine Urology Grace Martinez [address] [place] [address] [place] [address] Christopher Almonte MD [address] [place] [address] [place] [address] 7, Telemed [facility] Urology Ex Rm [address] [place] [address] 09/12/2023 3:20 PM EDT Office Visit Nephrology [address] [place] [address] Eliza Boles MD [address] [place] [address] 10/17/2023 3:20 PM EDT Office Visit Gastroenterology, [facility] 132 [place] [address] Milind Yadav MD [address] [place] [address] Pending Results Name Type Priority Associated Diagnoses [...] Additional history exists CKD HGB USE SMARTSET 60140 06/12/202406/12, 03/13/2023, 03/13/2023, Additional history exists CKD PHOS USE SMARTSET 63612 06/20/202405/27, 06/12/2023, 05/22/2023, Additional history exists DTaP,Tdap,and [...] this encounter Medical Devices Implanted Type Area Quiller Operator Device Identifier Shelf Expiration Date Model / Serial / Lot Stent Axios 20mm - [id number] Implanted:Qty: 1 on 01/04/2021 by Leyda Garcia MD at OR [facility] N/A: Stomach [employer] : ENDOSCOPY 11/20/2021 [id number] / / [id number] documented as of this encounter Procedures Procedure [...] - 4.8 mg/dL 06/20/2023 3:57 PM EST [facility] 56- Blood Venous blood specimen / Unknown Venipuncture / Unknown 06/20/2023 2:51 PM EST 06/20/2023 2:50 PM EST [place] [facility] LAB BLOOD ORDERAB LES [facility] 56[facility] 200 [place] [address] * MAGNESIUM (06/20/2023 2:51 PM EST) Pathologist [facility] Magnesium 1.5 1.5 - 2.6 mg/dL 06/20/2023 3:57 PM EST [facility] 56 Blood Venous blood specimen / Unknown Venipuncture / Unknown 06/20/2023 2:51 PM EST 06/20/2023 2:50 PM EST Mayra A [facility] LAB BLOOD ORDERAB LES [facility] 56 200 [place] [address] * (ABNORMAL) COMPREHENSIVE METABOLIC PANEL (06/20/2023 2:51 PM EST) BUN 38(H) 6 - 20 mg/dL 06/20/2023 3:57 PM EST [facility] 56- Creatinine 1.8(H) 0.5 - 1.0 mg/dL 06/20/2023 3:57 PM EST [facility] 56- Estimated Glomerular Filtration Rate 31(L) >=60 mL/min 06/20/2023 3:57 PM EST [facility] 56- Comment:eGFR is calculated b ased on the CKD-EPI 2020 equation Sodium 142 135 - 146 mmol/L 06/20/2023 3:57 PM [facility] 56- Potassium 4.4 3.5 - 5.1 mmol/L 06/20/2023 3:57 PM [facility] 56- Chloride 112(H) 98 - 107 mmol/L 06/20/2023 3:57 PM [facility] 56- CO2 15(L) 22 - 32 mmol/L 06/20/2023 3:57 PM [facility] 56- Anion Gap 15 7 - 15 mmol/L 06/20/2023 3:57 PM [facility] 56- Glucose 127(H) 70 - 120 mg/dL 06/20/2023 3:57 PM [facility] 56- Albumin 3.3(L) 3.8 - 5.0 g/dL 06/20/2023 3:57 PM [facility] 56- AST 21 10 - 35 U/L 06/20/2023 3:57 PM [facility] 56- Alkaline Phosphatase 85 35 - 130 U/L 06/20/2023 3:57 PM [facility] 56- Bilirubin, Total 0.3 <=1.2 mg/dL 06/20/2023 3:57 PM [facility] 56- Calcium 8.1(L) 8.4 - 10.2 mg/dL 06/20/2023 3:57 PM [facility] 56- Protein 5.3(L) 6.0 - 8.3 g/dL 06/20/2023 3:57 PM [facility] 56- ALT 32 10 - 35 U/L 06/20/2023 3:57 PM [facility] 56- Blood Venous blood specimen / Unknown Venipuncture / Unknown 06/20/2023 2:51 PM EST 06/20/2023 2:50 PM EST Myara Crook [facility] LAB BLOOD ORDERAB LES [facility] [address] [place] [address] documented in this encounter Visit Diagnoses Diagnosis [...] Documents on File Type Date Recorded Patient Construction Sales Representative Expl anation POLST 01/03/2022 [place] OR [facility] FOR LIFE-SUSTAINING TREATMENT Latest Code Status on File Code Status Date Activated Date Inactivated Comments No Code 12/08/2022 11:17 AM 12/15/2022 8:22 PM Thi s order reflects the patients wishes [...] Other - (no specific identity) Health Care Construction Sales Representative (appointed verbally by patient or by statute hierarchy) Rowdy Mykel Kraus Health Care Construction Sales Representative (appointed verbally by patient or by statute hierarchy) Care Teams Ic Design Manager Relationship Specialty Start Date End Date Evelyn Andrews MD [address] [place] [address] [place] [address] PCP - General Family Medicine 05/04/18 documented as of this encounter
--- OUTSIDE RECORDS SUMMARY | 2023-12-07 18:46 | External Medical Summary | Summary of Care ---
Author Name Unknown Organization [facility] Address [address] [place] [address] Phone [phone] Care Team Providers Care Refund Specialist Name Role Phone Evelyn Andrews MD Primary Care Prov ider Reason for Visit * Reason Comments Medication Management Encounter Details Date Type Department Care Team (Late st Contact Info) Description 06/14/2023 12:[address] [facility], [place] [address] [place] [address] Manage, Lauren Pharmacist Tpn [address] [place], [place] [phone] Severe protein-energy malnutrition (HCC)* Allergies Active Allergy Reactions Criticality Noted Date Comments Amoxicillin Edema airway High 01/22/2003 Oxybutynin 03/25/2023 Mouth ulcers Sulfa Antibiotics Edema airway High 08/15/2006 documented as of this encounter (statuses as of 06/14/2023) Medications Medication Sig Dispensed Refills Start Date [...] 12/15/2022 Active Vitamin D (Ergocalciferol) 1.25 MG (14918 UT) Oral Capsule (Drisdol)Indication s:Diarrhea due to [...] morning. 90 Tablet 3 04/03/2023 Active Nystatin 768088 UNIT/GM External Cream Apply topically to affected [...] for Nausea. 90 Tablet 1 04/25/2023 Active Joxynbubds-IPQX-Fna feine 50-325-40 MG Oral Tablet (Fioricet)Indicatio ns:Migraine [...] as of this encounter (statuses as of 06/14/2023) Active Problems Problem Noted Date Diagnosed Date [...] as of this encounter (statuses as of 06/14/2023) Resolved Problems Problem Noted Date Diagnosed Date Resolved Date Old DE (myocardial infarction) 03/01/2023 03/01/2023 Atherosclerosis of [place] co ronary artery without angina pectoris 02/08/2022 03/08/2022 Hyperparathyroidism 10/15/2021 03/01/20 23 Decreased GFR 08/17/2021 03/01/2023 Nephrolithiasis 02/16/2021 01/27/2022 Overview: Cysto 11/24/21 PFO with atrial septal aneurysm 05/16/2019 06/07/2022 Iron deficiency anemia 04/24/201911/29 Overview: More specific on PL Protein-calorie malnutrition 09/28/2018 09/23/2021 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/2021 [employer] demyelination 02/06/2017 05/02/2018 [employer]PER[employer]OR demyelination 02/06/2017 07/09/2019 Iron deficiency anemia 06/28/201109/20 Overview: ICD-10 update of inactive term Iron deficiency anemia 06/28/201109/20 Overview: ICD-10 update of inactive term Iron deficiency anemia pat paulino to inadequate dietary iron intake 09/26/2008 3 Infected postoperative seroma 06/02/2003 09/20/2012 PANNICULITIS, UNSP SITE 05/14/2003 09/0 11/2022 documented as of this encounter (statuses as of 06/14/2023) Immunizations Name Administration Dates Next Due COVID-19 mRNA, LNP-s, No Pre serve, 2-Dose Series (In2Games) 02/16/2021,11/25/2020,11/01/2020 COVID-19, MRNA-LNP, 23-24, P F, 30 MCG/0.3 mL, 12 YRS AND ABOVE, IM (PFIZER-Comirnaty) 04/10/2023 Covid-19, Mrna, Lnp-s, Pf, B ivalent, 30 Mcg, IM, 12 yrs and above (Pfizer) 04/12/2022 Pneumococcal Conjugate Vacci ne, 20-valent ([id number]) 12/10/2021 Pneumococcal Polysaccharide PPV23 (Pneumovax) 07/21/2009 Seasonal [...] as of this encounter Progress Notes * Suhail Collier, [facility] - 06/14/2023 1:33 PM EST [facility] TPN Documentation Patient Phone Numbers mobile [phone] Results for orders placed or performed during [...] orders placed or performed in visit on 06/12/23 COMPREHENSIVE METABOLIC PANEL Result Value Ref Range [...] g/dL ALT 27 10 - 35 U/L Lab Results Component Value Date/Time MAGNESIUM - [facility] 1.5 06/12/2023 10:50 AM MAGNESIUM - [facility] 1.7 05/10/2019 02:25 PM MAGNESIUM URINE 24HR 107 05/22/2013 11:39 AM MAGNESIUM-[facility] 1.3 (L) 11/30/2020 04:26 AM Lab Results Component Value Date/Time PHOSPHORUS - [facility] 2.6 06/12/2023 10:50 AM PHOSPHORUS - [facility] 3.9 05/10/2019 02:25 PM PHOSPHORUS, 24 HOUR URINE - [facility] 0.402 05/22/2013 11:39 AM PHOSPHORUS-[facility] 4.3 11/30/2020 12:00 AM PHOSPHORUS-[facility] LAB 4.3 11/28/2020 09:46 AM Lab Results Component Value Date/Time CALCIUM - [facility] 8.2 (L) 06/12/2023 10:50 AM CALCIUM - [facility] 8.5 07/16/2020 12:54 PM CALCIUM, 24 HOUR URINE - [facility] 0.065 05/10/2019 02:25 PM CALCIUM, IONIZED - [facility] 1.25 06/12/2023 10:50 AM CALCIUM, IONIZED - [facility] 1.33 (H) 07/21/2009 11:31 AM Patient weight (kg): 33.57 kg (73 lb) Amino acids (gm): 85 Dextrose (gm): 250 Lipids (gm): 80 Days per week (lipids): 7 Volume (ml): 1800 Cycle (hr): 12 with two hour taper down Days per week infused: 7 Sodium Chloride (mEq): 0 Sodium Phosphate (mM): 0 Sodium Acetate (mEq): 170 Potassium Chloride (mEq): 0 Potassium Phosphate (mM): [...] yo female on TPN for severe malnutrition. Per Dr. Wilkerson, increase amino acids to 85 gm, lipids to 80 gm, increase Octreotide to 400 mcg. Reviewed labs from 06/12/23; no other changes. Deliver 06/14/23 to cover through 06/21/23. Next weekly labs 06/20/23: (CMP, Magnesium, Phosphorus,and Ionized Calcium). Will exchange CADD pump after the holidays and review pump history for compliance. Suhail Collier [place], [facility], [facility] 06/14/2023 1:33 PM documented in this encounter Plan of Treatment Upcoming Encounters Date Type Department Care Team (Late st Contact Info) Description 06/21/2023 10:30 AM EST Immunization/Injection Hematology/Oncology Treatment, [address] [address] Nurse, Med [address] [place] [id number] 06/28/2023 10:45 AM EST Immunization/Injection Hematology/Oncology Treatment, [address] [address] Nurse, Med [address] [place] [address] 06/28/2023 3:30 PM EST Telemedicine [facility], [address] [address] Stacy Porter, PhD [address] [place] [address] 07/04/2023 6:30 PM EST Telemedicine Psychiatry, [place] [address] [place] [address] Alexis Serna MD [address] [place] [phone] 07/10/2023 11:20 AM EST Office Visit Neurology [facility] [address] [place] [address] Aris Mohr MD [address] [place] [address] 07/18/2023 11:40 AM EST Office Visit Family [address] [phone] Evelyn Andrews MD [address] [place] [address] [place] [address] 07/31/2023 1:30 PM EST Imaging Radiology [address] [facility] [place] [address] 08/15/2023 3:40 PM EST Office Visit Family [address] [phone] Evelyn Andrews MD [address] [place] [address] [place] [address] 08/25/2023 10:15 AM EST Telemedicine Urology Grace Martinez [address] [place] [address] Christopher Almonte MD [address] [place] [address] 7, Telemed [facility] Urology Ex [address] [facility] [place] [address] 09/12/2023 3:20 PM EDT Office Visit Nephrology [address] [place] [address] Eliza Boles MD [address] [place] [address] 10/17/2023 3:20 PM EDT Office Visit Gastroenterology, [facility] [address] [place] [address] Milind Yadav MD [address] [place] [address] Health Maintenance Due Date Last Done Comments [...] 11/24, 01/15/2007 Colorectal Cancer Screening 12/11/2023 GFR 12/12/2023 06/12/2023, 04/27, 05/08/2023, Additional history exists CKD HGB USE SMARTSET 10507 06/12/202406/12, 03/13/2023, 03/13/2023, Additional history exists CKD PHOS USE SMARTSET 29079 06/12/202405/26, 05/22/2023, 05/08/2023, Additional history exists DTaP,Tdap,and Td Vaccines (2 [...] this encounter Medical Devices Implanted Type Area Winter Sports Manager Device Identifier Shelf Expiration Date Model / Serial / Lot Stent Axios 20mm - [id number] Implanted:Qty: 1 on 01/04/2021 by Leyda Garcia MD at OR [facility] N/A: Stomach [employer] : ENDOSCOPY 11/20/2021 [id number] / / [id number] documented as of this encounter Visit Diagnoses Diagnosis Severe protein-energy malnutrition (HCC)- Primary Other severe protein-calorie malnutrition documented in this encounter Advance Directives Documents on File Type Date Recorded Patient Immunology Teacher Expl anation POLST 01/03/2022 [place] [facility] FOR LIFE-SUSTAINING TREATMENT [...] Other - (no specific identity) Health Care Immunology Teacher (appointed verbally by patient or by statute hierarchy) Rowdy Mykel Efra Health Care Immunology Teacher (appointed verbally by patient or by statute hierarchy) Care Teams Refund Specialist Relationship Specialty Start Date End Date Evelyn Andrews MD [address] [place] [address] [place] [address] PCP - General Family Medicine 05/04/18 documented as of this encounter
--- OUTSIDE RECORDS SUMMARY | 2023-12-07 18:47 | External Medical Summary ---
Author Name Unknown Address Unknown Organization K[facility] [place] [address] Laboratory Report Ordering Provider Test Date Status TONY RAMIREZ 06/12/2023 10:50:53 Final Observation Date Value Abnormality Reference (Units ) Status Magnesium 06/12/2023 10:50:53 1.5 1.5-2.6 (m g/dL) Final Performing Location [facility] [place] [address]
--- OUTSIDE RECORDS SUMMARY | 2023-12-07 18:47 | External Medical Summary | Summary of Care ---
Author Name Unknown Organization [facility] Address [address] [place] [address] Phone [phone] Care Team Providers Care Pedodontist Name Role Phone Evelyn Andrews MD Primary Care Prov ider Reason for Visit * Reason Comments Procedure Dressing change Encounter Details Date Type Department Care Team (Latest Contact Info) Description 06/12/2023 10:30 AM EST Immunization/I njection Hematology/Oncology Treatment, [place] [address] [place] [address] Nurse, Med [address] [place] [address] Encounter for adjustment and management of vascular access device*; Severe protein-energy malnutrition (HCC); S/P gastric bypass Allergies Active Allergy Reactions Criticality Noted Date Comments Amoxicillin Edema airway High 01/22/2003 Oxybutynin 03/25/2023 Mouth ulcers Sulfa Antibiotics Edema airway High 08/15/2006 documented as of this encounter (statuses as of 06/12/2023) Medications Medication Sig Dispensed Refills Start Date [...] 20 mg 480 Tablet 1 09/28/2022 Active Docusate Sodium 100 MG Oral Capsule (Colace) Take 1 Capsule by mouth in the morning and 1 Capsule before bedtime. 10 Capsule 0 11/18/2022 Active Additional Information Patient not taking.Reported on 01/10/2023 Gabapentin 300 MG Oral Capsule (Neurontin) Take 1 Capsule by mouth in the morning and 1 Capsule before bedtime. 60 Capsule 0 12/15/2022 Active Additional Information Patient not taking.Reported on 03/01/2023 Lidocaine 4 % External Patch (Aspercreme) Place 1 Patch every 12 hours topically on the skin in the morning - remove old patch first. Do not start before December 16, 2022. 30 Patch 0 12/16/2022 Active Polyethylene Glycol 3350 17 GM Oral Packet (MiraLax) Take 1 Packet by mouth daily as needed for Constipation. 14 Each 0 12/15/2022 Active Additional Information Patient not taking.Reported on 03/01/2023 Zinc Sulfate 220 (50 Zn) MG Oral Capsule Take 1 Capsule by mouth in the morning. 30 Capsule 0 12/15/2022 Active Additional Information Patient not taking.Reported on 01/10/2023 Vitamin D (Ergocalciferol) 1.25 MG (58884 UT) Oral Capsule (Drisdol)Indication s:Diarrhea due to malabsorption TAKE ONE CAPSULE BY MOUTH EVERY OTHER DAY 12 Capsule 6 08/26/2022 08/26/19 24 Active Dronabinol 2.5 MG Oral Capsule (Marinol) Take 1 Capsule by mouth every night at bedtime. 90 Capsule 5 01/19/2023 Active Additional Information Patient not taking.Reported on 04/03/2023 Rizatriptan Benzoate 10 MG Oral Tablet (Maxalt) TAKE 1 TAB BY MOUTH DAILY NEEDED FOR MIGRAINE. 10 Tablet 5 02/17/2023 Active DULoxetine HCl 60 MG Oral Capsule Delayed Release Particles (Cymbalta) Take 2 Capsules by mouth in the morning. 180 Capsule 2 02/21/2023 Active ALPRAZolam 0.25 MG Oral Tablet (xaNAX) Take 1 Tablet by mouth at bedtime as needed for Sleep. 30 Tablet 3 02/21/2023 Active Diphenoxylate-Atrop ine 2.5-0.025 MG Oral Tablet (Lomotil)Indication s:Migraine variant TAKE ONE TABLET BY MOUTH 4 TIMES DAILY NEEDED FOR DAIRRHEA 60 Tablet 0 03/16/2023 Active SUMAtriptan Succinate 50 MG Oral Tablet (Imitrex)Indication s:Migraine variant MAX OF 2 TABS PER ATTACK AND NO MORE THAN 3 X WEEKLY 10 Tablet 5 03/16/2023 Active Myrbetriq 25 MG Oral Tablet Extended Release 24 Hour (Mirabegron ER)Indications:Urge incontinence of urine Take 1 Tablet by mouth in the morning. 90 Tablet 3 04/03/2023 Active Nystatin 712896 UNIT/GM External Cream Apply topically to affected [...] for Nausea. 90 Tablet 1 04/25/2023 Active Vrczbxivre-HJQO-Jmd feine 50-325-40 MG Oral Tablet (Fioricet)Indicatio ns:Migraine [...] 2 days 25 Tablet 0 06/05/2023 Active documented as of this encounter (statuses as of 06/12/2023) Active Problems Problem Noted Date Diagnosed Date [...] as of this encounter (statuses as of 06/12/2023) Resolved Problems Problem Noted Date Diagnosed Date Resolved Date Old LA (myocardial infarction) 03/01/2023 03/01/2023 Atherosclerosis of ho-chunk co ronary artery without angina pectoris 02/08/2022 03/08/2022 Hyperparathyroidism 10/15/2021 03/01/20 23 Decreased GFR 08/17/2021 03/01/2023 Nephrolithiasis 02/16/2021 01/27/2022 Overview: Cysto 11/24/21 PFO with atrial septal aneurysm 05/16/2019 06/07/2022 Iron deficiency anemia 04/24/201911/29 Overview: More specific on PL Protein-calorie malnutrition 09/28/2018 09/23/2021 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/2021 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 02/06/2017 05/02/2018 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 02/06/2017 07/09/2019 Iron deficiency anemia 06/28/201109/20 Overview: ICD-10 update of inactive term Iron deficiency anemia 06/28/201109/20 Overview: ICD-10 update of inactive term Iron deficiency anemia pat morrisony to inadequate dietary iron intake 09/26/2008 3 Infected postoperative seroma 06/02/2003 09/20/2012 PANNICULITIS, [facility] SITE 05/14/200311/2022 documented as of this encounter (statuses as of 06/12/2023) Immunizations Name Administration Dates Next Due COVID-19 mRNA, LNP-s, No Pre serve, 2-Dose Series ([employer]) 02/16/2021,11/25/2020,11/01/2020 COVID-19, MRNA-LNP, 23-24, P F, 30 MCG/0.3 mL, 12 YRS AND ABOVE, IM ([employer]) 04/10/2023 Covid-19, Mrna, Lnp-s, Pf, B ivalent, 30 Mcg, IM, 12 yrs and above ([facility]) 04/12/2022 Pneumococcal Conjugate Vacci ne, 20-valent ([id number]) 12/10/2021 Pneumococcal Polysaccharide PPV23 (Pneumovax) 07/21/2009 Seasonal [...] as of this encounter Nursing Notes * Mary Bill, MELI - 06/12/2023 1:02 PM EST Chair 5, central line dressing change. Pt's existing dressing is only attached to the skin along the bottom border. Pt stated she did not feel well enough to come for a dressing change last week. Sutures are intact; no signs/symptoms of infection around catheter insertion site. Dressing changed perprotocol; specimen collected for ordered labs. Pt stated she continues to lose weight and feel "terrible". Pt sees GI tomorrow, Dr. Wilkerson. Pt discharged in stable condition. documented in this encounter Plan of Treatment Upcoming Encounters Date Type Department Care Team (Late st Contact Info) Description 06/13/2023 11:00 AM EST Office Visit Nutrition & Weight Management, [facility] [address] [place] [address] Vic Wilkerson, DO [address] [place] [address] 06/13/2023 11:40 AM EST Office Visit Nutrition & Weight Management, [facility] [address] [place] [address] Vic Wilkerson, DO [address] [place] [address] 06/14/2023 11:00 AM EST Office Visit Family [address] [phone] Evelyn Andrews MD [address] [place] [address] [place] [address] 06/21/2023 10:30 AM EST Immunization/Injectio n Hematology/Oncology Treatment, [address] [place] [address] Nurse, Med [address] [place] [address] [place] [address] 06/28/2023 10:45 AM EST Immunization/Injectio n Hematology/Oncology Treatment, [address] [place] [address] Nurse, Med 4 [address] [facility] [place] [address] 06/28/2023 3:30 PM EST Telemedicine Psychology, [place] [address] [place] [address] Stacy Porter, PhD [address] [place] [address] 07/03/2023 1:20 PM EST Office Visit Gastroenterology, [facility] [address] [place] [address] Milind Yadav MD [address] [place] [address] 07/04/2023 6:30 PM EST Telemedicine Psychiatry, [place] [address] [place] [address] Alexis Serna MD [address] [place] [phone] 07/10/2023 11:20 AM EST Office Visit Neurology [facility] [address] [place] [address] Aris Mohr MD [address] [facility] [place] [address] 07/18/2023 11:40 AM EST Office Visit Family Medicine [address] [place] [phone] Evelyn Andrews MD [address] [place] [address] [place] [address] 07/31/2023 1:30 PM EST Imaging Radiology [address] [place] [address] 08/15/2023 3:40 PM EST Office Visit Family Medicine [address] [place] [phone] Evelyn Andrews MD [address] [place] [address] [place] [address] 08/25/2023 10:15 AM EST Telemedicine Urology Grace Martinez [address] [place] [address] [place] [address] Christopher Almonte MD [address] [place] [address] [place] [address] 7, Telemed [facility] Urology Ex Rm [address] [place] [address] 09/12/2023 3:20 PM EDT Office Visit Nephrology [address] [place] [address] [facility]oles [facility] [address] Pending Results Name Type Priority Associated Diagnoses Date /Time CALCIUM, IONIZED Lab Routine Severe protein-energy malnutrition (HCC) 06/12/2023 10:50 AM EST IRON SCREEN, INCLUDING TIBC Lab Routine S/P gastric bypass 06/12/2023 11:36 AM EST FERRITIN Lab Routine S/P gastric bypass 06/12/2023 11:36 AM EST Health Maintenance Due Date Last [...] Additional history exists CKD HGB USE SMARTSET 75457 06/12/202406/12, 03/13/2023, 03/13/2023, Additional history exists CKD PHOS USE SMARTSET 75194 06/12/202405/26, 05/22/2023, 05/08/2023, Additional history exists DTaP,Tdap,and [...] this encounter Medical Devices Implanted Type Area Meat Grader Device Identifier Shelf Expiration Date Model / Serial / Lot Stent Axios 20mm - [id number] Implanted:Qty: 1 on 01/04/2021 by Leyda Garcia MD at OR [facility] N/A: Stomach [employer] : ENDOSCOPY 11/20/2021 [id number] / / [id number] documented as of this encounter Procedures Procedure Name Priority Date/Time Associated Diagnosis Comments CBC Routine 06/12/2023 11:36 AM EST S/P gastric bypass COMPREHENSIVE METABOLIC PANEL Routine 06/12/2023 10:50 AM EST Severe protein-energy malnutrition (HCC) PHOSPHORUS Routine 06/12/2023 10:50 AM EST Severe protein-energy malnutrition (HCC) MAGNESIUM Routine 06/12/2023 10:50 AM EST Severe protein-energy malnutrition (HCC) documented in this encounter Results * (ABNORMAL) CBC (06/12/2023 11:36 AM EST) Pathologist [facility] WBC 10.00 4.00 - 10.80 K/uL 06/12/2023 11:42 AM EST [place] [address] RBC 3.08 3.85 - 5.15 M/uL 06/12/2023 11:42 AM EST [place] [address] HGB 9.8(L) 12.0 - 15.3 g/dL 06/12/2023 11:42 AM [facility] HCT 31.7(L) 36.0 - 45.2 % 06/12/2023 11:42 AM [facility] 56 MCV 102.9 81.5 - 97.5 fL 06/12/2023 11:42 AM EST [facility] MCH 31.8 27.0 - 34.0 pg 06/12/2023 11:42 AM EST [facility] MCHC 30.9 32.0 - 36.0 g/dL 06/12/2023 11:42 AM [facility] 56 RDW 15.0 11.5 - 15.5 % 06/12/2023 11:42 AM [facility] 5602 PLT 277 140 - 400 K/uL 06/12/2023 11:42 AM [facility] 5602 MPV 12.1 6.6 - 11.1 fL 06/12/2023 11:42 AM [facility] 5602 Blood Venous blood specimen / Unknown Central Line / Unknown 06/12/2023 11:36 AM EST 06/12/2023 11:39 AM EST Vic Wilkerson DO LAB BLOOD ORDERAB LES [facility] [address] [place] [address] * PHOSPHORUS (06/12/2023 10:50 AM EST) Phosphorus 2.6 2.5 - 4.8 mg/dL 06/12/2023 12:59 PM EST [facility] 56 Blood Venous blood specimen / Unknown PICC / Unknown 06/12/2023 10:50 AM EST 06/12/2023 11:33 AM EST Mayra Caitlin Matti [facility] LAB BLOOD ORDERAB LES [facility] 56 [address] [place] [address] * MAGNESIUM (06/12/2023 10:50 AM EST) Magnesium 1.5 1.5 - 2.6 mg/dL 06/12/2023 12:59 PM EST [facility] 56 Blood Venous blood specimen / Unknown PICC / Unknown 06/12/2023 10:50 AM EST 06/12/2023 11:33 AM EST Mayra Matti [facility] LAB BLOOD ORDERAB LES [facility] 56 [address] [place] [address] * (ABNORMAL) COMPREHENSIVE METABOLIC PANEL (06/12/2023 10:50 AM EST) BUN 28(H) 6 - 20 mg/dL 06/12/2023 12:59 PM [facility] 56 Creatinine 1.2(H) 0.5 - 1.0 mg/dL 06/12/2023 12:59 PM EST [facility] 56 Estimated Glomerular Filtration Rate 52(L) >=60 mL/min 06/12/2023 12:59 PM EST [facility] 56 Comment:eGFR is calculated b ased on the CKD-EPI 2020 equation Sodium 143 135 - 146 mmol/L 06/12/2023 12:59 PM [facility] 56- Potassium 3.2(L) 3.5 - 5.1 mmol/L 06/12/2023 12:59 PM [facility] 56- Chloride 110(H) 98 - 107 mmol/L 06/12/2023 12:59 PM [facility] 56- CO2 18(L) 22 - 32 mmol/L 06/12/2023 12:59 PM [facility] 56 Anion Gap 15 7 - 15 mmol/L 06/12/2023 12:59 PM [facility] 56 Glucose 124(H) 70 - 120 mg/dL 06/12/2023 12:59 PM [facility] 56- Albumin 3.0(L) 3.8 - 5.0 g/dL 06/12/2023 12:59 PM [facility] 56 AST 33 10 - 35 U/L 06/12/2023 12:59 PM [facility] 56 Alkaline Phosphatase 74 35 - 130 U/L 06/12/2023 12:59 PM [facility] 56- Bilirubin, Total 0.2 <=1.2 mg/dL 06/12/2023 12:59 PM [facility] 56- Calcium 8.2(L) 8.4 - 10.2 mg/dL 06/12/2023 12:59 PM [facility] 56- Protein 5.1(L) 6.0 - 8.3 g/dL 06/12/2023 12:59 PM [facility] 56- ALT 27 10 - 35 U/L 06/12/2023 12:59 PM [facility] 56 Blood Venous blood specimen / Unknown PICC / Unknown 06/12/2023 10:50 AM EST 06/12/2023 11:33 AM EST Mayra Crook [facility] LAB BLOOD ORDERAB LES [facility] [address] [place] [address] documented in this encounter Visit Diagnoses Diagnosis Encounter for adjustment and management of vascular access device- Primary Severe protein-energy malnutrition (HCC) Other severe protein-calorie malnutrition S/P gastric bypass Bariatric surgery status documented in this encounter Administered Medications Active Administered Medications - up to 3 most recent administrations Medication Order MAR Action Action Date Dose Rate Site hEParin 100 UNIT/ML Lock Flush inj 500 Units 500 Units (5 mL), IV Lock, PRN Other, IV Flush, Starting on Mon06/12/23 at 1057, Until Mon06/13/23 at 1056, For 24 hours, Do not flush if lock, PICC, or central line not in place; IV infusing or unable to flush. Given 06/12/2023 11:26 AM EST 500 Units Given 06/12/2023 11:20 AM EST 500 Units sodium chloride 0.9 % flush central line 10 mL 10 mL, IV Push, PRN Other, IV Flush, Starting on Mon06/12/23 at 1057, Until Mon06/13/23 at 1056, For 24 hours, Do not flush if lock, PICC, or central line not in place; IV infusing or unable to flush. Given 06/12/2023 11:26 AM EST 10 mL Given 06/12/2023 11:20 AM EST 10 mL documented in this encounter Advance Directives Documents on File Type Date Recorded Patient Regulatory Technician Expl anatdayday CLANCY 01/03/2022 [place] [facility] [...] Other - (no specific identity) Health Care Regulatory Technician (appointed verbally by patient or by statute hierarchy) Rowdybrady Hogue Sibling Health Care Regulatory Technician (appointed verbally by patient or by statute hierarchy) Care Teams Pedodontist Relationship Specialty Start Date End Date Evelyn Andrews MD [address] [place] [address] [place] [address] PCP - General Family Medicine 05/04/18 documented as of this encounter
--- OUTSIDE RECORDS SUMMARY | 2023-12-07 18:47 | External Medical Summary ---
Author Name Unknown Address Unknown Organization [id number]:[facility]ATORY [facility] [place] - [address] [facility] [place] [address] Laboratory Report Ordering Provider Test Date Status JENNIFER KURTZ 06/12/2023 11:36:36 Final Observation Date Value Abnormality Reference (Units ) Status Iron 06/12/2023 11:36:36 66 33-151 (ug/dL) Final Iron-binding capacity 06/12/2023 11:36:36 194 Below low normal 250-425 (ug/dL) Final Transferrin Sat % 06/12/2023 11:36:36 34 15-55 (%) Final Performing Location LABORATORY [facility] [place] - [address] [place] [address]
--- OUTSIDE RECORDS SUMMARY | 2023-12-07 18:47 | External Medical Summary ---
Author Name Unknown Address Unknown Organization K09:[facility] [place] [facility] - [address] [place] [address] Laboratory Report Ordering Provider Test Date Status TONY RAMIREZ 06/12/2023 10:50:53 Final Observation Date Value Abnormality Reference (Units ) Status BUN 06/12/2023 10:50:53 28 Above high normal 6-20 (mg/dL) Final Creatinine 06/12/2023 10:50:53 1.2 Above high normal 0.5-1.0 (mg/dL) Final Glomerular filtration rate/1.73 sq M.predicted [Volume Rate/Area] in Serum, Plasma or Blood by Creatinine-based formula (CKD-EPI) 06/12/2023 10:50:53 52 Below low normal >=60 (mL/min) Final eGFR is calculated based on the CKD-EPI 2020 equation SODIUM 06/12/2023 10:50:53 143 135-146 (m mol/L) Final Potassium 06/12/2023 10:50:53 3.2 Below low normal 3.5 -5.1 (mmol/L) Final Cl 06/12/2023 10:50:53 110 Above high normal 98 -107 (mmol/L) Final CO2 06/12/2023 10:50:53 18 Below low normal 22- 32 (mmol/L) Final Anion gap 06/12/2023 10:50:53 15 7-15 (mmol /L) Final Glucose 06/12/2023 10:50:53 124 Above high normal 70 -120 (mg/dL) Final Albumin 06/12/2023 10:50:53 3.0 Below low normal 3.8 -5.0 (g/dL) Final AST (Aspartate aminotransferase) 06/12/2023 10:50:53 33 10-35 (U/L) Fin al Alk Phos 06/12/2023 10:50:53 74 35-130 (U/ L) Final Bilirubin, Total 06/12/2023 10:50:53 0.2 <=1 .2 (mg/dL) Final Calcium 06/12/2023 10:50:53 8.2 Below low normal 8.4 -10.2 (mg/dL) Final Protein 06/12/2023 10:50:53 5.1 Below low normal 6.0 -8.3 (g/dL) Final ALT (Alanine aminotransferase) 06/12/2023 10:50:53 27 10-35 (U/L) Matthew belle Performing Location [facility] [place] [address]
--- OUTSIDE RECORDS SUMMARY | 2023-12-07 18:47 | External Medical Summary ---
Author Name Unknown Address Unknown Organization K01:[facility] [place] [address] [place] [address] Laboratory Report Ordering Provider Test Date Status JERARDOJENNIFER 06/12/2023 11:36:36 Final Observation Date Value Abnormality Reference (Units ) Status Ferritin 06/12/2023 11:36:36 45 13-150 (ng /mL) Final Postmenopausal women have hi gher ferritin levels than pre-menopausal women. The above reference interval is based on pre-menopausal women. Performing Location LAB[facility]ATORY [facility] - [address] [place] [address]
--- OUTSIDE RECORDS SUMMARY | 2023-12-07 18:47 | External Medical Summary ---
Author Name Unknown Address Unknown Organization K09:[facility] [place] [address] Laboratory Report Ordering Provider Test Date Status TONY RAMIREZ 06/12/2023 10:50:53 Final Observation Date Value Abnormality Reference (Units ) Status Phosphate 06/12/2023 10:50:53 2.6 2.5-4.8 (m g/dL) Final Performing Location [facility] [place] [address]
--- OUTSIDE RECORDS SUMMARY | 2023-12-07 18:47 | External Medical Summary ---
Author Name Unknown Address Unknown Organization K01:[facility] [place] [address] [facility] [place] [address] Laboratory Report Ordering Provider Test Date Status TONY RAMIREZ 06/12/2023 10:50:53 Final Observation Date Value Abnormality Reference (Units ) Status Calcium.ionized [Moles/volume] in Serum or Plasma by Ion-selective membrane electrode (ISE) 06/12/2023 10:50:53 1.25 1.13-1.32 (mmol/L) Final This test was developed and its performance characteristics dtermined by [employer]. It has not been cleared or approved by the [place] Food and Drug Administration Performing Location [facility] [place] [facility] [place] [address] [place] [address]
--- OUTSIDE RECORDS SUMMARY | 2023-12-07 18:47 | External Medical Summary | Summary of Care ---
Author Name Unknown Organization [facility] Address [address] [place] [address] Phone [phone] Care Team Providers Care Linter Tender Name Role Phone Evelyn Andrews MD Primary Care Prov ider Encounter Details Date Type Department Care Team (Late st Contact Info) Description 06/13/2023 10:00 AM EST Telemedicine Nutrition & Weight Management, [facility] [address] [place] [address] Vic Wilkerson, DO [address] [place] [address] Severe protein-calorie malnutrition (HCC)*; Iron deficiency anemia, unspecified iron deficiency anemia type; Diarrhea, unspecified type; Cachexia (HCC); Migraine variant Allergies Active Allergy Reactions Criticality Noted Date Comments Amoxicillin Edema airway High 01/22/2003 Oxybutynin 03/25/2023 Mouth ulcers Sulfa Antibiotics Edema airway High 08/15/2006 documented as of this encounter (statuses as of 06/13/2023) Medications Medication Sig Dispensed Refills Start Date [...] on 01/10/2023 Vitamin D (Ergocalciferol) 1.25 MG (03191 UT) Oral Capsule (Drisdol)Indication s:Diarrhea due to [...] morning. 90 Tablet 3 04/03/2023 Active Nystatin 896581 UNIT/GM External Cream Apply topically to affected [...] for Nausea. 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 [...] seroma 06/02/2003 09/20/2012 [facility]14[facility]2003 09/0 11/2022 documented as of this encounter (statuses as of 06/13/2023) Immunizations Name Administration Dates Next Due COVID-19 mRNA, LNP-s, No Pre serve, 2-Dose Series ([place]) 02/16/2021,11/25/2020,11/01/2020 COVID-19, MRNA-LNP, 23-24, P F, 30 MCG/0.3 mL, 12 YRS AND ABOVE, IM (PFIZER-Comirnaty) 04/10/2023 Covid-19, Mrna, Lnp-s, Pf, B ivalent, 30 Mcg, IM, 12 yrs and above (Pfizer) 04/12/2022 Pneumococcal Conjugate Vacci ne, 20-valent ([id number]) 12/10/2021 Pneumococcal Polysaccharide PPV23 (Pneumovax) 07/21/2009 Seasonal [...] Progress Notes * Vic Wilkerson DO - 06/13/2023 10:07 AM EST Evelyn Mobley MD Patient location: HOME. I was in a hospital or clinic location. After connecting through televideo,patient was verified with two unique identifiers. Patient (or authorized legal training representative) was then informed that this was a Telemedicine visit and being conducted confidentially over secure lines. Methods to assure confidentiality were taken. Patient acknowledged consent and understanding of pr ivacy and security of the Telemedicine visit. The patient agreed to participate. Your patient was seen today in the Nutrition Clinic. Please take note of the following information. Nutrition Diagnosis: SEVERE Protein/Calorie Malnutrition Weight 73 pounds ROS: (+) Migraine (+) Diarrhea LMP 04/05/2007 Wt Readings from Last 6 Encounters: 04/24/23 33.6 kg (74 lb) 04/03/23 34.4 kg (75 lb 12.8 oz) 03/25/23 34 kg (75 lb 1 oz) 03/13/23 32.8 kg (72 lb 6.4 oz) 03/01/23 33.7 kg (74 lb 3.2 oz) 02/20/23 34.9 kg (77 lb) Current Outpatient Medications Medication Sig Dispense [...] PAIN Strength: 20 mg 480 Tablet 1 Docusate Sodium 100 MG Oral Capsule (Colace) Take 1 Capsule by mouth in the morning and 1 Capsule before bedtime. (Patient not taking: Reported on 01/10/2023) 10 Capsule 0 Gabapentin 300 MG Oral Capsule (Neurontin) Take 1 Capsule by mouth in the morning and 1 Capsule before bedtime. (Patient not taking: Reported on 03/01/2023) 60 Capsule 0 Lidocaine 4 % External Patch (Aspercreme) Place 1 Patch every 12 hours topically on the skin in themorning - remove old patch first. Do not start before December 16, 2022. 30 Patch 0 Polyethylene Glycol 3350 17 GM Oral Packet (MiraLax) Take 1 Packet by mouth daily as needed for Constipation. (Patient not taking: Reported on 03/01/2023) 14 Each 0 Zinc Sulfate 220 (50 Zn) MG Oral Capsule Take 1 Capsule by mouth in the morning. (Patient not taking: Reported on 01/10/2023) 30 Capsule 0 Vitamin D (Ergocalciferol) 1.25 MG (79031 UT) Oral Capsule (Drisdol) TAKE ONE CAPSULE BY MOUTH EVERY OTHER DAY 12 Capsule 6 Dronabinol 2.5 MG Oral Capsule (Marinol) Take 1 Capsule by mouth every night at bedtime. (Patient not taking: Reported on 04/03/2023) 90 Capsule 5 Rizatriptan Benzoate 10 MG Oral Tablet (Maxalt) TAKE 1 TAB BY MOUTH DAILY NEEDED FOR MIGRAINE. 10 Tablet 5 DULoxetine HCl 60 MG Oral Capsule Delayed Release Particles (Cymbalta) Take 2 Capsules by mouth in the morning. 180 Capsule 2 ALPRAZolam 0.25 MG Oral Tablet (xaNAX) Take 1 Tablet by mouth at bedtime as needed for Sleep. 30 Tablet 3 Diphenoxylate-Atropine 2.5-0.025 MG Oral Tablet (Lomotil) TAKE ONE TABLET BY MOUTH 4 TIMES DAILY ASNEEDED FOR DAIRRHEA 60 Tablet 0 SUMAtriptan Succinate 50 MG Oral Tablet (Imitrex) MAX OF 2 TABS PER ATTACK AND NO MORE THAN 3 X WEEKLY 10 Tablet 5 Myrbetriq 25 MG Oral Tablet Extended Release 24 Hour (Mirabegron ER) Take 1 Tablet by mouth in the morning. 90 Tablet 3 Nystatin 853324 UNIT/GM External Cream Apply topically to affected area 2 times a day. 30 g 2 Mirtazapine 45 MG Oral Tablet (Remeron) Take 1 Tablet by mouth at bedtime. 30 Tablet 3 Ondansetron 4 MG Oral Tablet Disintegrating (Zofran) Place 1 Tablet on tongue every 8 hours as needed for Nausea. 90 Tablet 1 Qltkjbmqwx-TOIY-Ccovlbiv 50-325-40 MG Oral Tablet (Fioricet) TAKE ONE TABLET EVERY 6 HOURS NEEDED FOR PAIN 90 Tablet 1 OLANZapine 5 MG Oral Tablet (zyPREXA) Take 1 Tablet by mouth at bedtime. 30 Tablet 5 Promethazine HCl 25 MG Oral Tablet (Phenergan) Take 1 Tablet by mouth every 8 hours as needed for Nausea. 30 Tablet 3 predniSONE 20 MG Oral Tablet (Deltasone) Take 80 mg for 2 days, 60 mg for 2 days, 40 mg for 2 days,20 mg for 2 days then 10 mg for 2 days 25 Tablet 0 No current facility-administered medications for this visit. Diet: regular Nutrition Support: NONE Venous Access: None Enteral Access: NONE Review of Systems: -- Tolerating TPN LMP 04/05/2007 Physical Exam Cachetic MMM Regular Lungs clear Wasted Severe Protein Calorie Malnutrition: -- Continue TPN --Will increase lipids to 80 grams --Increase protein 805 grams -- Will continue cycle to 12 hours -- Labs reviewed from 06/12 -- look OK -- Will increase Octreotide to 400 mcg Given her current weight and the amount of calories she is receiving from her TPN, not sure why sheis not gaining weight?? To consider referral to [facility] or [facility] for a second opinion. 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 Continue Remeron --CDS Vic Wilkerson DO, FACN, FACP Director, [facility], Department of Gastroenterology/Nutrition documented in this encounter Plan of Treatment Upcoming Encounters Date Type Department Care Team (Late st Contact Info) Description 06/14/2023 11:00 AM EST Office Visit Family Medicine [address] [place] [phone] Evelyn Andrews MD [address] [place] [address] [place] [address] 06/21/2023 10:30 AM EST Immunization/Injection Hematology/Oncology Treatment, [place] [address] [facility], [place] [address] Nurse, Med 4 [address] [place] [address] 06/28/2023 10:45 AM EST Immunization/Injection Hematology/Oncology Treatment, [place] [address] [facility] [place] [address] Nurse, Med 4 [address] [place] [address] 06/28/2023 3:30 PM EST Telemedicine Psychology, [place] [address] [place] [address] Stacy Porter, PhD [facility] [place] [address] 07/03/2023 1:20 PM EST Office Visit Gastroenterology, [facility] [address] [facility] [place] [address] Milind Yadav MD [address] [place] [address] 07/04/2023 6:30 PM EST Telemedicine Psychiatry, [place] [address] [place] [address] Alexis Serna MD [address] [place] [address] 07/10/2023 11:20 AM EST Office Visit Neurology [facility] [address] [facility] [place], [place] [address] Aris Mohr MD [address] [facility] [place], [place] [address] 07/18/2023 11:40 AM EST Office Visit Family Medicine [address] [phone] Evelyn Andrews MD [address] [place] [address] [place] [address] 07/31/2023 1:30 PM EST Imaging Radiology [facility] [address] [place] [address] 08/15/2023 3:40 PM EST Office Visit Family Medicine [address] [place] [phone] Evelyn Andrews MD [address] [place] [address] [place] [address] 08/25/2023 10:15 AM EST Telemedicine Urology Grace Martinez [address] [place] [address] Christopher Almonte MD [address] [place] [address] 7, Telemed [facility] Urology Ex Rm [address] [place] [address] 09/12/2023 3:20 PM EDT Office Visit Nephrology [address] [place] [address] Eliza Boles MD [address] [place] [address] Health Maintenance Due Date Last Done Comments [...] Additional history exists CKD HGB USE SMARTSET 85408 06/12/202406/12, 03/13/2023, 03/13/2023, Additional history exists CKD PHOS USE SMARTSET 86330 06/12/202405/26, 05/22/2023, 05/08/2023, Additional history exists DTaP,Tdap,and [...] this encounter Medical Devices Implanted Type Area Raise Driller Device Identifier Shelf Expiration Date Model / Serial / Lot Stent Axios 20mm - [id number] Implanted:Qty: 1 on 01/04/2021 by Leyda Garcia MD at OR [facility] N/A: Stomach [employer] : ENDOSCOPY 11/20/2021 [id number] / / [id number] documented as of this encounter Visit Diagnoses Diagnosis Severe protein-calorie malnutrition (HCC)- Primary Other severe protein-calorie malnutrition Iron deficiency anemia, unspecified iron deficiency anemia type Diarrhea, unspecified type Cachexia (HCC) Cachexia Migraine variant Variants of migraine, not elsewhere classified, without mention of intractable migraine without mention of status migrainosus documented in this encounter Advance Directives Documents on File Type Date Recorded Patient Neon Glass Bender Catherine CLANCY 01/03/2022 [place] [facility] [[email or web address] FOR [...] Other - (no specific identity) Health Care Neon Glass Bender (appointed verbally by patient or by statute hierarchy) Rowdybrady Hogue Sibling Health Care Neon Glass Bender (appointed verbally by patient or by statute hierarchy) Care Teams Linter Tender Relationship Specialty Start Date End Date Evelyn Andrews MD [address] [place] [address] [place] [address] PCP - General Family Medicine 05/04/18 documented as of this encounter
--- OUTSIDE RECORDS SUMMARY | 2023-12-07 18:47 | External Medical Summary ---
Author Name Unknown Address Unknown Organization K09:[facility] [place] [place] [address] Laboratory Report Ordering Provider Test Date Status JENNIFER KURTZ 06/12/2023 11:36:36 Final Observation Date Value Abnormality Reference (Units ) Status WBC, Total 06/12/2023 11:36:36 10.00 4.00-10.8 0 (K/uL) Final RBC 06/12/2023 11:36:36 3.08 3.85-5.15 (M/uL) Final Hemoglobin 06/12/2023 11:36:36 9.8 Below low normal 12 .0-15.3 (g/dL) Final HCT 06/12/2023 11:36:36 31.7 Below low normal 36. 0-45.2 (%) Final MCV 06/12/2023 11:36:36 102.9 81.5-97.5 (fL) Final MCH 06/12/2023 11:36:36 31.8 27.0-34.0 (pg) Final MCHC 06/12/2023 11:36:36 30.9 32.0-36.0 (g/dL) Final RDW 06/12/2023 11:36:36 15.0 11.5-15.5 (%) Final Platelets 06/12/2023 11:36:36 277 140-400 (K /uL) Final MPV 06/12/2023 11:36:36 12.1 6.6-11.1 ( fL) Final Performing Location [facility] [address] [place] [address]
--- OUTSIDE RECORDS SUMMARY | 2023-12-07 18:47 | External Medical Summary | Summary of Care ---
Author Name Unknown Organization [facility] Address [address] [place] [address] Phone [phone] Care Team Providers Care Rn Peritoneal Dialysis Name Role Phone Evelyn Andrews MD Primary Care Prov ider Reason for Visit * Reason Comments Physical-Exam Follow Up 3 mo f/u Encounter Details Date Type Department Care Team (Latest Contact Info) Description 06/14/2023 11:00 AM EST Office Visit Family Medicine [address] [phone] Evelyn Andrews MD [address] [place], [place] [address] [address] Severe protein-energy malnutrition (HCC)*; Chronic kidney disease, stage 3a (HCC); MDD (major depressive disorder), recurrent severe, without psychosis (HCC); Myelopathy (HCC); Anxiety; Copper deficiency myeloneuropathy (HCC); Migraine variant Allergies Active Allergy Reactions [...] 23 Active Vitamin D (Ergocalciferol) 1.25 MG (21857 UT) Oral Capsule (Drisdol)Indicatio ns:Diarrhea due to [...] morning. 90 Tablet 3 04/03/20 23 Active Nystatin 920742 UNIT/GM External Cream Apply topically to affected area 2 times a day. 30 g 2 04/03/20 23 Active Mirtazapine 45 MG Oral Tablet (Remeron)Indicatio ns:Recurrent major depressive disorder, in partial remission (HCC) Take 1 Tablet by mouth at bedtime. 30 Tablet 3 04/12/20 23 Active Ondansetron 4 MG Oral Tablet Disintegrating (Zofran)Indication s:Intractable vomiting with nausea Place 1 Tablet on tongue every 8 hours as needed for Nausea. 90 Tablet 1 04/25/20 23 Active Yjqvgjxfpw-XVCD-Mu ffeine 50-325-40 MG Oral Tablet (Fioricet)Indicati ons:Migraine [...] MIGRAINE. 10 Tablet 5 06/14/20 23 Active Docusate Sodium 100 MG Oral Capsule [...] 14 Each 0 12/16/19 23 023 Discontinued Dronabinol 2.5 MG Oral Capsule (Marinol) Take [...] Tablet 3 02/22/20 23 023 Discontinued(Re fill) Diphenoxylate-Atro pine 2.5-0.025 MG Oral Tablet (Lomotil)Indicatio ns:Migraine variant TAKE ONE TABLET BY MOUTH 4 TIMES DAILY NEEDED FOR DAIRRHEA 60 Tablet 0 03/16/20 23 023 Discontinued(Re fill) documented as of this encounter (statuses as of 06/14/2023) Active Problems Problem Noted Date Diagnosed Date MDD (major depressive disord er), recurrent severe, without psychosis 05/22/2023 Bipolar disorder 03/25/2023 Incontinence of feces with fecal urgency MDD (major depressive disord er), recurrent episode, [...] [place] (myocardial infarction) 03/01/2023 03/01/2023 Atherosclerosis of [place] ronary artery without angina pectoris 02/08/2022 03/08/2022 Hyperparathyroidism 10/15/2021 03/01/20 23 Decreased GFR 08/17/2021 03/01/2023 Nephrolithiasis 02/16/2021 01/27/2022 Overview: Cysto 11/24/21 PFO with atrial septal aneurysm 05/16/2019 06/07/2022 Iron deficiency anemia 04/24/201911/29 Overview: More specific on PL Protein-calorie malnutrition 09/28/2018 09/23/2021 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/2021 CLERK CASHIER demyelination 02/06/2017 05/02/2018 CLERK CASHIER demyelination 02/06/2017 07/09/2019 Iron deficiency anemia 06/28/201109/20 [...] mRNA, LNP-s, No Pre serve, 2-Dose Series (Tripvi) 02/16/2021,11/25/2020,11/01/2020 COVID-19, MRNA-LNP, 23-24, P F, 30 MCG/0.3 mL, 12 YRS AND ABOVE, IM (PFIZER-Comirnaty) 04/10/2023 Covid-19, Mrna, Lnp-s, Pf, B ivalent, 30 Mcg, IM, 12 yrs and above (Pfizer) 04/12/2022 Pneumococcal Conjugate Vacci ne, 20-valent ([id number]) 12/10/2021 Pneumococcal Polysaccharide PPV23 (Pneumovax) 07/21/2009 Seasonal [...] Sign Reading Time Taken Comments Blood Pressure 120/70 06/14/2023 11:42 AM EST Pulse 94 06/14/2023 11:42 AM EST Temperature 35.4 C (95.8 F) 06/14/2023 11:[address] Respiratory Rate - - Oxygen Saturation 98% 06/14/2023 11:42 AM EST Inhaled Oxygen Concentration - - Weight 33.1 kg (73 lb) 06/14/2023 11:42 AM EST Height - - Body Mass Index 14.74 12/21/2022 11:21 AM EDT documented in this [...] * Obdulio Forbes, Evelyn Nugent MD - 06/14/2023 11:46 AM EST Subjective Chandrika Hogue is a 56 year old female. Chief Complaint Patient presents with Physical-Exam Follow Up 3 mo f/u HPI: Here for close follow up severe depression and malnutrition. Depression. "Back and forth all the time." Working with psychology and psychiatry, Dr Serna. Missed her last appt with Psychologist, asking if can reschedule.. Mood is down again. /Renal. S/p right nephrectomy due to recurrent UTI and non-functioning kidney causing severe pain. Pain is resolved (had stones). Still incontinent. Will see Dr Almonte next week for follow up. Nutrition. Has been on TPN since October 2022. Working with GI/Nutrition. Not gaining weight; she believes she is receiving 5000kcal per day but not gaining weight. Is down 20 pounds since port was placed. Admits is very weak and tired. Myelopathy. Secondary to malnutrition/ copper deficiency. Sees Dr Mohr. Gabapentin not helping. Sees Dr Grider in June. Preventive; Defers pap and mammo. PMH: Patient Active Problem List Diagnosis Code IRON DEF ANEMIA DIETARY D50.8 ADVANCE DIRECTIVE INFORMATION HYPERPARATHYROIDISM SECONDARY, NON-RENAL E21.1 Other vitamin B12 deficiency anemia D51.8 Intestinal postoperative nonabsorption K91.2 MEDICATION USE AGREEMENT [id number] Status post bariatric surgery Z98.84 Migraine variant G43.809 Chronic pain syndrome G89.4 Osteopenia of neck of femur M85.859 Severe protein-energy malnutrition (HCC) E43 Myelopathy (HCC) G95.9 Recurrent major depressive disorder, in partial remission (HCC) F33.41 Hereditary and idiopathic peripheral neuropathy G60.9 Chronic kidney disease, stage 3a (HCC) N18.31 Cachexia (HCC) R64 Copper deficiency myeloneuropathy (HCC) E61.0, G63, G99.2 Encounter for adjustment and management of vascular access device Z45.2 Demyelinating disease of central nervous system (HCC) G37.9 Gastrostomy malfunction ([facility]) K94.23 Failure to thrive in adult R62.7 [...] in the morning. 90 Tablet 3 Nystatin 699676 UNIT/GM External Cream Apply topically to affected area 2 times a day. 30 g 2 Mirtazapine 45 MG Oral Tablet (Remeron) Take 1 Tablet by mouth at bedtime. 30 Tablet 3 Ondansetron 4 MG Oral Tablet Disintegrating (Zofran) Place 1 Tablet on tongue every 8 hours as needed for Nausea. 90 Tablet 1 Camjbypnuj-QMQO-Samsajvf 50-325-40 MG Oral Tablet (Fioricet) TAKE ONE [...] DAILY NEEDED FOR MIGRAINE. 10 Tablet 5 Vitamin D (Ergocalciferol) 1.25 MG (73813 UT) Oral Capsule (Drisdol) TAKE ONE CAPSULE BY MOUTH EVERY OTHER DAY 12 Capsule 6 No current facility-administered medications for this visit. Review of patient's allergies indicates: Allergen Reactions Amoxicillin Edema airway Sulfa Antibiotics Edema airway Oxybutynin Mouth ulcers Objective BP 120/70 | Pulse 94 | Temp 35.4 C (95.8 F) (Tympanic) | Wt 33.1 kg (73 lb) | LMP 04/05/2007 | SpO2 98% | BMI 14.74 kg/m | BSA 1.17 m Physical Exam Constitutional: Appearance: She is ill-appearing. Cardiovascular: Rate and Rhythm: Normal rate and regular rhythm. Pulses: Normal pulses. Heart sounds: Normal heart sounds. Pulmonary: Effort: Pulmonary effort is normal. Breath sounds: Normal breath sounds. Abdominal: General: Abdomen is flat. Palpations: Abdomen is soft. Musculoskeletal: General: Deformity present. Comments: scoliosis Neurological: Mental Status: She is alert. ASSESSMENT/PLAN: Severe protein-energy malnutrition (HCC) (Primary) Chronic kidney disease, stage 3a (HCC) - ALBUMIN / CREATININE RATIO, URINE; Future; Expected date: 06/14/2023 MDD (major depressive disorder), recurrent severe, without psychosis (HCC) Myelopathy (HCC) - COPPER, SERUM OR PLASMA; Future; Expected date: 06/15/2023 Anxiety - ALPRAZolam 0.25 MG Oral Tablet (xaNAX); Take 1 Tablet by mouth at bedtime as needed for Sleep. Copper deficiency myeloneuropathy (HCC) - COPPER, SERUM OR PLASMA; Future; Expected date: 06/15/2023 Migraine variant - Diphenoxylate-Atropine 2.5-0.025 MG Oral Tablet (Lomotil); TAKE ONE TABLET BY MOUTH 4 TIMES DAILY NEEDED FOR DAIRRHEA - Rizatriptan Benzoate 10 MG Oral Tablet (Maxalt); TAKE 1 TAB BY MOUTH DAILY NEEDED FOR MIGRAINE. Persistent depression but working [facility] psychiatry and psychology. Denies suicidality. Managing difficult chronic malnutrition, difficult to manage States she wants to have the PICC removed "its not working and I have no life. Its OK if I . I'Carolin with that." Frustrated with medical futility. Evelyn Mobley MD documented in this encounter Nursing Notes * Serene Vargas LPN - 06/14/2023 11:23 AM EST Chief Complaint Patient presents with Physical-Exam Bruise area Left Lower leg . She is unsteady and has had increase in fall Not swollen or WTT Duration- 2 wks The patient has been properly identified by confirmation of name and date of . documented in this encounter Plan of Treatment Upcoming Encounters Date Type Department Care Team (Late st Contact Info) Description 06/21/2023 10:30 AM EST Immunization/Injection Hematology/Oncology Treatment, [address] [place] [address] Nurse, Med 4 [address] [facility] [place] [address] 06/28/2023 10:45 AM EST Immunization/Injection Hematology/Oncology Treatment, [place] [address] [facility] [place] [address] Nurse, Med 4 200 [facility] [place] [address] 06/28/2023 3:30 PM EST Telemedicine Psychology, [place] [address] [place] [address] Stacy Porter, PhD [address] [place] [address] 07/04/2023 6:30 PM EST Telemedicine Psychiatry, [place] [address] [place] [address] Alexis Serna MD [address] [place] [phone] 07/10/2023 11:20 AM EST Office Visit Neurology [facility] [address] [facility] [place] [address] Aris Mohr MD [address] [facility] [place] [address] 07/18/2023 11:40 AM EST Office Visit Family Medicine [address] [place] [phone] Evelyn Andrews MD [address] [place] [address] [place] [address] 07/31/2023 1:30 PM EST Imaging Radiology [address] [facility] [place] [address] 08/15/2023 3:40 PM EST Office Visit Family Medicine [address] [place] [phone] Evelyn Andrews MD [address] [place] [address] [place] [address] 08/25/2023 10:15 AM EST Telemedicine Urology [place] [address] [place] [address] [place] [address] Christopher Almonte MD [address] [place] [address] [place] [address] 7, Telemed [facility] Urology Ex Rm [address] [place] [address] 09/12/2023 3:20 PM EDT Office Visit Nephrology [address] [place] [address] Eliza Boles MD [address] [place] [address] 10/17/2023 3:20 PM EDT Office Visit Gastroenterology, [facility] [address] [place] [address] Milind Yadav MD [address] [place] [address] Scheduled Orders Name Type Priority Associated Diagnoses Orde r Schedule ALBUMIN / CREATININE RATIO, URINE Lab Routine Chronic kidney disease, stage 3a (HCC) Expected: 06/14/2023 (Approximate), Expires: 06/14/2024 COPPER, SERUM OR PLASMA Lab Routine Myelopathy (HCC) Copper deficiency myeloneuropathy (HCC) Expected: 06/15/2023, Expires: 06/14/2024 Health Maintenance Due Date Last Done Comments [...] Additional history exists CKD HGB USE SMARTSET 28181 06/12/202406/12, 03/13/2023, 03/13/2023, Additional history exists CKD PHOS USE SMARTSET 52409 06/12/202405/26, 05/22/2023, 05/08/2023, Additional history exists DTaP,Tdap,and [...] this encounter Medical Devices Implanted Type Area Expediter Device Identifier Shelf Expiration Date Model / Serial / Lot Stent Axios 20mm - [id number] Implanted:Qty: 1 on 01/04/2021 by Leyda Garcia MD at OR [facility] N/A: Stomach [employer] : ENDOSCOPY 11/20/2021 [id number] / / [id number] documented as of this encounter Visit Diagnoses Diagnosis Severe protein-energy malnutrition (HCC)- Primary Other severe protein-calorie malnutrition Chronic kidney disease, stage 3a (HCC) MDD (major depressive disorder), recurrent severe, without psychosis (HCC) Major depressive disorder, recurrent episode, severe, without mention of psychotic behavior Myelopathy (HCC) Unspecified disease of spinal cord Anxiety Anxiety state, unspecified 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 Migraine variant Variants of migraine, not elsewhere classified, without mention of intractable migraine without mention of status migrainosus documented in this encounter Advance Directives Documents on File Type Date Recorded Patient On Site Manager Expl anation POL 01/03/2022 [place] OR [facility] FOR LIFE-SUSTAINING TREATMENT Latest Code Status [...] Other - (no specific identity) Health Care On Site Manager (appointed verbally by patient or by statute hierarchy) Rowdy Kraus Health Care On Site Manager (appointed verbally by patient or by statute hierarchy) Care Teams Rn Peritoneal Dialysis Relationship Specialty Start Date End Date Evelyn Andrews MD [address] [place] [address] [place] [id number] PCP - General Family Medicine 05/04/18 documented as of this encounter
[2023-12-07] MEDS: CEFEPIME 1,000 MG in SYRINGE 0 ML IV SCH (20:01)
[2023-12-07] MEDS: FUROSEMIDE INJ 20 MG/2 ML VIAL IV ONE (20:01)
[2023-12-07 20:37] LABS: Base Excess VBG -11.7 mEq/L; HCO3 VBG 14 mmol/L; Oxygen Saturation VBG 69.2 %; PCO2 VBG 29 mmHg (38-50); PO2 VBG 42 mmHg; pH VBG 7.28 (7.36-7.41)
[2023-12-07 20:47] LABS: Calcium 7.3 mg/dl (8.6-10.3); Creatinine Clr Calc Pharmacy 24.7 ml/min; Est GFR (African American) 47.6 ml/min; Est GFR (Non-African American) 41.1 ml/min; Magnesium 4.4 mg/dl (1.7-2.4); Phosphorus 2.7 mg/dl (2.5-4.9); Potassium 7.3 mmol/L (3.5-5.1)
--- OUTSIDE RECORDS SUMMARY | 2023-12-07 22:57 | External Medical Summary | Summary of Care ---
Author Name Unknown Organization [facility] Address [address] [place] [address] Phone [phone] Care Team Providers Care Sewing Techniques Demonstrator Name Role Phone Evelyn Andrews MD Primary Care Prov ider Encounter Details Date Type Department Care Team (Late st Contact Info) Description 11/06/2023 Population Health External Data Unspecified Department Allergies Active Allergy Reactions Criticality Noted Date Comments Amoxicillin Edema airway High 01/22/2003 Oxybutynin 03/25/2023 Mouth ulcers Sulfa Antibiotics Edema airway High 08/15/2006 documented as of this encounter (statuses as of 11/06/2023) Medications Medication Sig Dispensed Refills Start Date End Date Status CYANOCOBALAMIN 1000 MCG/ML IJ SOLN one injection monthly 0 Suspended CALCITRIOL 0.25 MCG PO CAPS 1 CAPSULE BY MOUTH MONDAYS/MONDAY S/FRIDAYS 5 4 Suspended [facility] AC[address]HEN EX [facility] 500 MG Tablet TAKE 1 CAPSULE BY MOUTH EVERY 4 HOURS 0 0 Suspended Oyster Shell Calcium 500 MG Oral Tablet Take 2 Tabs by mouth daily. 60 Tab 5 0 Suspended Additional Information Dicyclomine HCl 20 MG Oral Tablet (Bentyl)Indications: [...] Information SUMAtriptan Succinate 50 MG Oral Tablet (Imitrex)Indications :Migraine variant MAX OF 2 TABS PER ATTACK AND NO MORE THAN 3 X WEEKLY 10 Tablet 5 3 Suspended Additional Information ALPRAZolam 0.25 MG Oral Tablet (xaNAX)Indications:A nxiety Take 1 Tablet by mouth at bedtime as needed for Sleep. 30 Tablet 3 3 Suspended Additional Information guaiFENesin-Codeine 100-10 MG/5ML Oral Syrup (Robitussin AC)Indications:COVID -19 Take 5 mL by mouth every 4 hours as needed for Cough. 120 mL 0 4 Suspended Additional Information OLANZapine 5 MG Oral Tablet Disintegrating (zyPREXA zyDIS) Place 1 Tablet on tongue in the morning. 30 Tablet 5 4 Suspended Additional Information Omeprazole 20 MG Oral Capsule Delayed Release (PriLOSEC) TAKE 1 CAPSULE BY MOUTH EVERY DAY IN THE MORNING 90 Capsule 4 4 Suspended Additional Information Diphenoxylate-Atropi ne 2.5-0.025 MG Oral Tablet (Lomotil)Indications :Migraine variant TAKE ONE TABLET BY MOUTH 4 TIMES DAILY NEEDED FOR DAIRRHEA 60 Tablet 0 4 Suspended Additional Information Promethazine HCl 25 MG Oral Tablet (Phenergan)Indicatio ns:Nausea Take 1 Tablet by mouth every 8 hours as needed for Nausea. 30 Tablet 3 4 Suspended Additional Information Rizatriptan Benzoate 10 MG Oral Tablet (Maxalt)Indications: Migraine variant TAKE 1 TAB BY MOUTH DAILY NEEDED FOR MIGRAINE. 10 Tablet 5 4 Suspended Additional Information Hkdmaaohgd-YKSA-Upxd eine 50-325-40 MG Oral Tablet (Fioricet)Indication s:Migraine variant TAKE ONE TABLET EVERY 6 HOURS NEEDED FOR PAIN 90 Tablet 1 4 Suspended Additional Information Pregabalin 25 MG Oral Capsule (Lyrica)Indications: Copper deficiency myeloneuropathy (HCC),Hereditary and idiopathic peripheral neuropathy Take 1 Capsule by mouth in the morning and 1 Capsule before bedtime. 60 Capsule 5 4 Suspended Additional Information Ferrous Sulfate 325 (65 Fe) MG Oral Tablet (Feosol) Take 1 Tablet by mouth daily at noon. 30 Tablet 0 4 11/09/19 24 Suspended Additional Information Ascorbic Acid 250 MG Oral Tablet Take 1 Tablet by mouth daily at noon. 30 Tablet 0 4 11/09/19 24 Suspended Additional Information Vitamin E 400 UNIT Oral Capsule (Aquasol E) Take 1 Capsule by mouth in the morning. 30 Capsule 0 4 11/09/19 24 Suspended Additional Information Sodium Bicarbonate 650 MG Oral Tablet Take 2 Tablets by mouth in the morning and 2 Tablets before bedtime. 120 Tablet 0 4 11/09/19 24 Suspended Additional Information Cholestyramine Light 4 GM Oral Packet (Prevalite) Mix 1 packet in 4 to 6 ounces of your favorate NONCARBONATED beverage and stir vigorously and drink by mouth daily in the morning. 30 Packet 0 4 11/09/19 24 Suspended Additional Information Patient not taking.Reported on 11/03/2023 Ergocalciferol 1.25 MG (19717 UT) Oral Capsule (Vitamin D2(Drisdol)) Take 1 Capsule by mouth once a day on Monday, Monday, and Monday only. 12 Capsule 0 4 11/09/19 24 Suspended Additional Information busPIRone HCl 5 MG Oral Tablet (Buspar) Take 1 Tablet by mouth in the morning and 1 Tablet at noon and 1 Tablet before bedtime. 90 Tablet 0 4 11/09/19 24 Suspended Additional Information Lidocaine 4 % External Patch (Aspercreme)Indicati ons:Myelopathy (HCC) Place 1 Patch over 12 hours topically on the skin daily. 90 Patch 3 4 Suspended Additional Information traMADol HCl 50 MG Oral Tablet (Ultram)Indications: Other idiopathic scoliosis, thoracic region,Chronic midline thoracic back pain Take 1 Tablet by mouth daily as needed for Pain, Severe. 30 Tablet 0 4 Suspended Additional Information Nystatin 665851 UNIT/GM External Cream APPLY TO AFFECTED AREA TWICE A DAY 30 g 2 4 Suspended Additional Information Ondansetron 4 MG Oral Tablet Disintegrating (Zofran)Indications: Intractable vomiting with nausea PLACE 1 TABLET ON TONGUE EVERY 8 HOURS NEEDED FOR NAUSEA. 90 Tablet 1 4 Suspended Additional Information Mirtazapine 45 MG Oral Tablet (Remeron)Indications :Recurrent major depressive disorder, in partial remission (HCC) Take 1 Tablet by mouth at bedtime. 30 Tablet 3 4 Suspended Additional Information QUEtiapine Fumarate 50 MG Oral Tablet (SEROquel) Take 1 Tablet by mouth at bedtime. 0 Suspended documented as of this encounter (statuses as of 11/06/2023) Active Problems Problem Noted Date Diagnosed Date [...] as of this encounter (statuses as of 11/06/2023) Resolved Problems Problem Noted Date Diagnosed Date Resolved Date [place] (myocardial infarction) 03/01/2023 03/01/2023 Atherosclerosis of [place] ronary artery without angina pectoris 02/08/2022 [...] malnutrition 09/28/2018 09/23/2021 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/2021 TOBACCO SAMPLE PULLER demyelination 02/06/2017 05/02/2018 TOBACCO SAMPLE PULLER demyelination 02/06/2017 07/09/2019 Iron deficiency anemia 06/28/201109/20 Overview: ICD-10 update of inactive term Iron deficiency anemia 06/28/201109/20 Overview: ICD-10 update of inactive term Iron deficiency anemia pat paulino to inadequate dietary iron intake 09/26/2008 3 Secondary hyperparathyroidism, non-renal 03/27/2007 10/24/2023 Infected postoperative seroma 06/02/2003 09/20/2012 PANNICULITIS, UNSP SITE 05/14/2003 09/0 11/2022 documented as of this encounter (statuses as of 11/06/2023) Immunizations Name Administration Dates Next Due COVID-19 mRNA, LNP-s, No Pre serve, 2-Dose Series ([employer]) 02/16/2021,11/25/2020,11/01/2020 COVID-19, MRNA-LNP, 23-24, P F, 30 MCG/0.3 mL, 12 YRS AND ABOVE, IM ([employer]-Comirnat) 04/10/2023 Covid-19, Mrna, Lnp-s, Pf, B ivalent, 30 Mcg, IM, 12 yrs and above (Pfizer) 04/12/2022 Pneumococcal Conjugate Vacci ne, 20-valent ([id number]) 12/10/2021 Pneumococcal Polysaccharide PPV23 (Pneumovax) 07/21/2009 Seasonal [...] 10:20 AM EDT Office Visit Family Medicine [address] [phone] Evelyn Andrews MD [address] [place] [address] [place] [address] 11/29/2023 5:00 PM EDT Telemedicine Psychiatry [place] [address] [place] [address] Alexis Serna MD [address] [place] [address] 12/04/2023 3:45 PM EDT Office Visit Urology, [facility] [address] [facility] [place] [address] Christopher Almonte MD 27 [facility] [address] [place] [address] 04/29/2024 8:40 AM EST Office Visit Neurology [facility] [address] [facility] [place] [address] Aris Mohr MD [address] [place] [address] 09/16/2024 11:20 AM EDT Office Visit Neurology [facility] [place] [address] [facility] [place] [address] Jodee Austin MD [address] [place] [address] Health Maintenance Due Date Last Done Comments HPV/Co-Test 1993 Cologuard 2008 Fecal Occult Blood Test 2008 Sigmoidoscopy 2008 Mammogram 08/18/2011 08/18/2010, 08/11/2009 Cervical Cancer Screening 09/27/2014 Pap Smear 09/27/2014 09/28/2011, 0711/2010, 07/07/2010, Additional history exists Depression, Most Recent Score >= 10 (will fire each visit until score < 10) 05/23/2023 05/22/2023 Colonoscopy 12/11/2023 12/10/2013, 11/24, 01/15/2007 Colorectal Cancer Screening 12/11/2023 GFR 05/08/2024 11/06/2023, 10/24, 11/05/2023, Additional history exists Albumin/Creatinine Ratio 08/23/2024 024, 08/23/2022, 09/20/2021 CKD HGB USE SMARTSET 95785 11/05/202411/05, 11/04/2023, 11/03/2023, Additional history exists CKD PHOS USE SMARTSET 58581 11/05/202410/24, 11/05/2023, 11/05/2023, Additional history exists DTaP,Tdap,and Td Vaccines [...] this encounter Medical Devices Implanted Type Area Associate Theatre Professor Device Identifier Shelf Expiration Date Model / Serial / Lot Stent Axios 20mm - [id number] Implanted:Qty: 1 on 01/04/2021 by Leyda Garcia MD at OR [facility] N/A: Stomach [employer] : ENDOSCOPY 11/20/2021 [id number] / / [id number] documented as of this encounter Advance Directives Documents on File Type Date Recorded Patient Bowl Turner Expl anation POLST 01/03/2022 [place] OR [facility] FOR LIFE-SUSTAINING TREATMENT Latest Code Status on File Code Status Date Activated Date Inactivated Comments No Code 11/03/2023 5:42 PM This order reflects the patients wishes [...] Other - (no specific identity) Health Care Bowl Turner (appointed verbally by patient or by statute hierarchy) Rowdy Kraus Health Care Bowl Turner (appointed verbally by patient or by statute hierarchy) Care Teams Sewing Techniques Demonstrator Relationship Specialty Start Date End Date Evelyn Andrews MD [address] [place] [address] [place] [address] PCP - General Family Medicine 05/04/18 documented as of this encounter
--- OUTSIDE RECORDS SUMMARY | 2023-12-07 22:57 | External Medical Summary ---
Author Name Unknown Address Unknown Organization [id number]:[facility] - [address] [place] [address] Laboratory Report Ordering Provider Test Date Status MARIELOS SALAS 11/07/2023 04:25:00 Final Observation Date Value Abnormality Reference (Units ) Status WBC, Total 11/07/2023 04:25:00 6.35 4.00-10.80 (K/uL) Final RBC 11/07/2023 04:25:00 2.96 3.85-5.15 (M/uL) Final Hemoglobin 11/07/2023 04:25:00 9.0 Below low normal 12.0-15.3 (g/dL) Final HCT 11/07/2023 04:25:00 29.1 Below low normal 36.0-45.2 (%) Final MCV 11/07/2023 04:25:00 98.3 81.5-97.5 (fL) Final MCH 11/07/2023 04:25:00 30.4 27.0-34.0 (pg) Final MCHC 11/07/2023 04:25:00 30.9 32.0-36.0 (g/dL) Final RDW 11/07/2023 04:25:00 18.4 11.5-15.5 (%) Final Platelets 11/07/2023 04:25:00 150 140-400 (K/uL) Final MPV 11/07/2023 04:25:00 12.3 6.6-11.1 (fL) Final Nucleated erythrocytes/100 leukocytes [Ratio] in Blood by Automated count 11/07/2023 04:25:00 0 <=0 (/100 WBCs) Final Performing Location [facility] - [address] [facility] [place] [place] [address]
[2023-12-08 05:32] LABS: BUN Creatinine Ratio 22.7 (10-20); Calcium 7.9 mg/dl (8.6-10.3); Creatinine Clr Calc Pharmacy 24.2 ml/min; Est GFR (African American) 43.4 ml/min; Est GFR (Non-African American) 37.5 ml/min; Magnesium 2.5 mg/dl (1.7-2.4); Phosphorus 3.2 mg/dl (2.5-4.9); Potassium 3.7 mmol/L (3.5-5.1)
[2023-12-08] MEDS: POTASSIUM CHLORIDE / WTR 10 MEQ/100 ML PLCT IV SCH (06:04)
--- NOTE | 2023-12-08 07:07 | XRay Report ---
XR chest 1V portable HISTORY: 58 years-old Female f/u acute shortness of breath COMPARISON: 12/07/2023 TECHNIQUE: AP view of the chest FINDINGS: Sigmoidal thoracolumbar scoliosis redemonstrated. Left IJ catheter distal tip terminates in the SVC. Mild cardiomegaly. No pneumothorax or pleural effusion. Extensive intermixed interstitial and alveola r opacities, progressively worsened. Bones appear grossly intact. Surgical device within the stomach. Right upper quadrant surgical clips. IMPRESSION: Progressive worsening of the extensive intermixed interstitial and alveolar opacities wit hout definite pleural effusion. Pneumonia versus ARDS are primary differential considerations. ACT 112: Negative or not required by law. The above report was generated using voice recognition software. It may contain grammatical, syntax o r spelling errors. Electronically signed by: Maikel Lafleur M.D. 12/08/2023 7:05 AM
[2023-12-08 07:42] LABS: Estimated Average Glucose 126 mg/dl
--- NOTE | 2023-12-08 07:55 | Critical Care Progress Note ---
Date of Service December 08, 2023 Assessment & Plan (1) Pneumonia: (2) Septic shock: (3) Acidosis: (4) Leukocytosis: (5) Acute hypoxemic respiratory failure: (6) Acute kidney injury superimposed on chronic kidney disease: (7) AMS (altered mental status): (8) History of nephrectomy: Plan Reason Critically Ill: 58-year-old female past medical history of protein calorie malnutrition on TPN, bipolar, presented to hospital with shortness of breath, found to have hypoxia and hypotension. Sent to ICU for further management Neuro - [facility] ICU: Negative --Metabolic encephalopathy Likely secondary to sepsis CT head, head CT as well as neck CTA - 12/06/2023 TSH 1.2 Cardiac - -- Hypotension Likely secondary to sepsis Responded to fluids Random cortisol 14.29 Continue to monitor, vasopressor support if the MAP stays persistently less than 65 Respiratory - -- Acute hypoxic respiratory failure Likely secondary to multilobar pneumonia, possibly aspiration Bedside speech therapy evaluation shows high probability of aspiration, keep patient n.p.o. Respiratory bio fire negative for everything on 12/06/2023 BNP 208, procalcitonin 4.49 No peripheral eosinophilia Patient's oxygen requirement is very high for bronchoscopy CT chest 12/06/2023 personally reviewed: Patchy groundglass opacities appreciated bilaterally No significant mediastinal lymphadenopathy GI - -- Chronic malabsorption disorder with severe protein calorie moderation Likely post gastric bypass surgery Is on TPN RENAL/LYTES - -- HAGMA Delta-delta: Less than 1, gap plus nongap Urine electrolytes showed positive gap show urinary source is one of the reasons for gap Patient also has significant surgeries and malabsorption syndrome, due to lactic acidosis might also be playing a role - -- Urinary incontinence On Vesicare at home ENDO - -- ICU hypoglycemia protocol HEME - -- Normocytic anemia Monitor H&H ID - --Gram-negative bacilli in the urine --> E. coli pansensitive Continue with antibiotics Follow-up sensitivity -- Multilobar pneumonia Continue broad-spectrum antibiotic Respiratory bio fire negative -- Given history of TPN Empiric coverage with antifungal --Prophylaxis VTE: Heparin GI: None Lines: Left central PICC Diet: N.p.o. Plan: In/out: +1.9 L, urine output 1896 Chest x-ray shows worsening interstitial opacities with small bilateral pleural effusion She did get Lasix yesterday and her creatinine went up a little bit. Will give 50 mg of bicarb. DC bicarb drip after this bag is done. Continue with hydrocortisone tapering dose Continue with micafungin for at least 48 hours. If the fungal culture is negative okay to discontinue Continue with cefepime. Follow-up the second Start Levophed today to keep MAP greater than 65 Start TPN today Repeat BMP later today Potassium and phosphorus being replaced I have personally spent 37 minutes of critical care time in the direct management of this patient. This is a life/limb threatening event. This includes time spent evaluating patient, direct bedside care, chart review, placing orders, interpretation of diagnostic studies, discussion with consultants, patient, and family members, as well as other required patient management activities. This time is exclusive of all separately billable procedures, and teaching time and separate from and in addition to any other critical care service time. Please note the above document was generated using voice recognition software. It may contain grammatical, syntax or spelling errors. Admission and Anticipated Discharge Date Admission Date: December 06, 2023 Subjective Patient seen and examined at bedside. No acute distress, no events events overnight She was saturating 99-100% on 40 L, 80% FiO2. I went down to 65%. She was sleeping. Has on and off waxing and waning when it comes to her mentation. Has been afebrile. Review of Systems 2 Review of Systems: All systems reviewed & are unremarkable except as noted in Subjective Physical Exam 2 Physical Exam: Constitutional: No acute distress HEENT: EOMI, PERRLA Respiratory system: Decreased air entry bilaterally, no wheeze, no rhonchi, positive crackles bilaterally anteriorly and posteriorly CVS: S1-S2 positive, no murmurs or gallops Abdomen: Soft, nontender, nondistended, positive bowel sounds x4 Extremities: +1 pulses bilaterally radialis/ dorsalis pedis, no cyanosis, minimal pitting edema bilateral lower extremity Neuro: Awake alert oriented to self Psych: Normal mood and affect G/U: Positive Yin Skin: no rashes, warm and dry Lymphatic: no cervical or axillary lymphadenopathy Results & Data Results & Data Vital Signs (Past 12 Hours) Vital Signs Temp Pulse Pulse Resp BP BP BP 12/08/23 06:00 69 35 H 103/61 12/08/23 05:42 73 39 H 12/08/23 05:00 68 20 104/61 12/08/23 04:36 76 39 H 12/08/23 04:28 111/58 L 12/08/23 04:03 92 H 33 H 12/08/23 03:36 74 20 12/08/23 03:32 37.0 C 12/08/23 03:00 89/50 L 12/08/23 03:00 58 L 31 H 12/08/23 02:03 76 38 H 102/56 L 12/08/23 01:31 63 12/08/23 01:06 71 34 H 12/08/23 00:22 90/52 L 12/08/23 00:21 69 32 H 12/07/23 23:46 63 19 12/07/23 23:34 36.5 C 12/07/23 23:06 75 26 H 12/07/23 23:04 95/57 L 12/07/23 23:03 95/57 L 12/07/23 23:01 80/52 L 12/07/23 22:48 68 30 H 12/07/23 22:18 87/54 L 12/07/23 22:00 71 37 H 12/07/23 21:06 70 34 H 12/07/23 21:01 85/51 L 12/07/23 21:00 85/51 L 12/07/23 20:42 71 33 H 12/07/23 20:20 12/07/23 20:18 36.4 C L 12/07/23 20:00 65 30 H 87/51 L Pulse Ox O2 Del Method O2 Flow Rate FiO2 12/08/23 06:00 93 12/08/23 05:42 95 12/08/23 05:00 100 12/08/23 04:36 93 12/08/23 04:28 12/08/23 04:03 93 12/08/23 03:36 91 High Flow Nasal Cannula 40 100 12/08/23 03:32 12/08/23 03:00 12/08/23 03:00 100 12/08/23 02:03 91 12/08/23 01:31 12/08/23 01:06 94 12/08/23 00:22 12/08/23 00:21 90 12/07/23 23:46 91 High Flow Nasal Cannula 40 100 12/07/23 23:34 12/07/23 23:06 91 12/07/23 23:04 12/07/23 23:03 12/07/23 23:01 12/07/23 22:48 89 L 12/07/23 22:18 12/07/23 22:00 93 12/07/23 21:06 94 12/07/23 21:01 12/07/23 21:00 12/07/23 20:42 96 12/07/23 20:20 Other 40 100 12/07/23 20:18 12/07/23 20:00 100 Laboratory Results 12/07/23 05:32 12/08/23 04:48 Coding Level of Care Code 92269 CRITICAL CARE 1ST 30-74M Diagnoses Pneumonia J18.9 Septic shock A41.9; R65.21 Acidosis E87.20 Leukocytosis D72.829 Acute hypoxemic respiratory failure J96.01 Acute kidney injury superimposed on chronic kidney disease N17.9; N18.9 AMS (altered mental status) R41.82 History of nephrectomy Z90.5
[2023-12-08 08:35] LABS: Hematocrit (blood only) 22.8 % (37.0-47.0); Hemoglobin 7.7 g/dl (12.0-16.0); Mean Corpuscular Hemoglobin 28.9 pg (25.0-34.0); Mean Corpuscular Hgb Conc 33.8 g/dL (32.0-36.0); Mean Corpuscular Volume 85.7 fL (80.0-100.0); Mean Platelet Volume 12.4 fL (9.4-12.4); Platelet Count 259 K/uL (130-400); RDW Coefficient of Variation 17.8 % (11.5-14.5); RDW Standard Deviation 56.4 fL (36.4-46.3); Red Blood Count 2.66 M/uL (4.20-5.40); White Blood Count 33.57 K/ul (4.8-10.8)
[2023-12-08 08:53] LABS: Anisocytosis Present; Basophils # (auto) 0.06 K/uL (0.00-0.20); Basophils % (auto) 0.2 %; Eosinophils # (auto) 0.01 K/uL (0.00-0.50); Immature Granulocytes # (auto) 0.45 K/uL (0.01-0.20); Immature Granulocytes % (auto) 1.3 %; Lymphocytes # (auto) 1.49 K/uL (1.20-3.40); Lymphocytes % (auto) 4.4 %; Monocytes # (auto) 0.59 K/uL (0.11-0.59); Monocytes % (auto) 1.8 %; Neutrophils # (auto) 30.97 K/uL (1.40-6.50); Neutrophils % (auto) 92.3 %; Polychromasia 1+
[2023-12-08] MEDS ORDERED: STAT IV Infusion **Titration per Protocol STA (08:53)
[2023-12-08] MEDS: NOREPINEPHRINE/D5W 4 MG/250 ML PLCT IV SCH (09:03)
[2023-12-08] MEDS: NOREPINEPHRINE/D5W 4 MG/250 ML IV ONE (09:24)
[2023-12-08] MEDS: PANTOprazole 40 MG in SYRINGE 0 ML IV SCH (11:45)
--- NOTE | 2023-12-08 11:57 | Pharmacy Report ---
Pharmacy Glycemic Short Note 2 - Date of Service December 08, 2023 - Glycemic Short BSG Results (Last 24 hours): 12/07/23 12/07/23 12/07/23 11:57 14:48 15:22 Glucose 354 H* POC Glucose 205 H 150 H Fasting Glucose 12/07/23 12/07/23 12/07/23 16:55 20:03 20:12 Glucose POC Glucose 147 H 158 H Fasting Glucose 225 H 12/07/23 12/08/23 12/08/23 23:29 03:31 04:48 Glucose 143 H POC Glucose 194 H 136 H Fasting Glucose 12/08/23 08:21 Glucose POC Glucose 151 H Fasting Glucose OUTPATIENT ANTIDIABETIC REGIMEN: * Patient does not appear to be on any antidiabetic medications at home. * A1c: 6% 12/08/23 ASSESSMENT: * 58-year-old female past medical history of protein calorie malnutrition on TPN, who presented to hospital with shortness of breath, found to have hypoxia and hypotension. * Patient had elevated BSGs yesterday. Contributing factors include stress from acute illness requiring pressors, hydrocortisone IV, and bicarb infusion order ed in dextrose containing fluids. Today BSGs have were acceptable at 136-143-151 mg/dL thus far. * Today the bicarb infusion will stop this evening (~1800). The steroids will begin to taper starting tomorrow. Per provider, TPN should resume today. * Given significant changes in care today, will conservatively manage BSGs with correctional insulin only through today and reassess in the morning. PLAN FOR INPATIENT GLYCEMIC CONTROL: * Hold outpatient oral diabetes medications * Basal insulin * none * Bolus insulin * NovoLog per scale q4h * Goal Range: Low 120 mg/dL - High 160 mg/dL * Correction Factor: 65 mg/dL/unit * no prandial insulin at his time
--- NOTE | 2023-12-08 12:17 | Hospitalist Progress Note ---
Date of Service December 08, 2023 Assessment & Plan (1) Protein calorie malnutrition: (2) History of nephrectomy: (3) Pneumonia: (4) Septic shock: (5) Acidosis: (6) Leukocytosis: (7) Acute hypoxemic respiratory failure: Plan Patient is a 58 year old female with PMHx significant for chronic malabsorption syndrome post bypass, severe protein calorie malnutrition on TPN, iron deficiency anemia, copper deficiency, h/o right nephrectomy in 2022, bipolar disorder, anxiety, depression, tobacco use, migraine headache, nonspecific white matter changes, myelopathy who presented to the ER with multiple medical complaints including SOB, dry mouth and speech changes. Septic Shock Pneumonia Complicated UTI Upon arrival to ER patient noted to be hypotensive and hypoxic in the 70's. In ER afebrile, P: 94, R: 30, BP: 87/56, 78% on RA CTA Chest: No pulmonary embolus. Groundglass opacities compatible with pneumonia and/or aspiration. CT Head, CTA Head & neck: unremarkable WBC: 36.7. Lactate: 1.6, procalcitonin: 4.5 Was on 10L nonrebreather with O2 sat low 90's UA was suggestive of infection, urine culture grew E coli and Klebsiella Blood Cx x2 sets NGTD Fungal Cx pending Drug screen negative Suspect sepsis secondary to pneumonia, UTI. In ER given meropenem, vancomycin, 2 L NSS Was admitted to the ICU, currently on Cefepime and Caspofungin Also on pressors for BP support as well as hydrocortisone Continue to monitor Acute kidney injury Metabolic acidosis History of nephrectomy Cr: 2.2 on admission ABG pH of 7.21, HCO3 of 8, pCO2 of 19. AG of 9 at that time. Recent ROBINSON end of 10/2023 with Cr: 1.6 on 12/03 and 1.7 on 11/21. Prior baseline Cr: 1.0-1.2 IVF in ER. Did have CTA with contrast in ER Monitor renal function Nephrology consulted, appreciate recs -on bicarb drip Protein calorie malnutrition Aspiration S/P bypass BMI: 14 On TPN 4 days a week at home Nutrition consult, speech consult Currently NPO due to aspiration TPN re-started on 12/07 Depression with anxiety: History Bipolar disorder On home buspirone, duloxetine, olanzapine H/O migraine Denies current SMALLWOOD Tobacco use Smokes 1/2ppd Smoking cessation encouraged Diet: NPO, re-started on TPN DVT Prophylaxis: Heparin SQ Admission and Anticipated Discharge Date Admission Date: December 06, 2023 Subjective pt seen resting comfortably in bed in the ICU. Needed pressor support Review of Systems Review of Systems: All systems reviewed & are unremarkable except as noted in Subjective Physical Exam Physical Exam: General: No acute distress, thin, frail Psych: Appropriate mood and affect HEENT: NC/AT CV: RRR, Normal s1, s2. No murmurs appreciated Resp: no increased effort of breathing Abdomen: Soft Extremities: No edema in lower extremities bilaterally. Results & Data Results & Data Vital Signs (Past 12 Hours) Vital Signs Temp Pulse Pulse Resp BP BP Pulse Ox 12/08/23 10:39 72 32 H 91 12/08/23 10:13 71 22 93 12/08/23 10:00 69 34 H 90 12/08/23 10:00 105/68 12/08/23 09:30 92/44 L 12/08/23 09:30 63 23 97 12/08/23 09:00 86/50 L 12/08/23 09:00 65 21 96 12/08/23 08:36 60 24 100 12/08/23 08:18 83 26 H 98 12/08/23 08:00 12/08/23 07:59 67 20 100 12/08/23 07:45 12/08/23 07:30 66 35 H 100 12/08/23 07:03 72 37 H 91 12/08/23 06:42 68 36 H 97 12/08/23 06:00 69 35 H 103/61 93 12/08/23 05:42 73 39 H 95 12/08/23 05:00 68 20 104/61 100 12/08/23 04:36 76 39 H 93 12/08/23 04:28 111/58 L 12/08/23 04:03 92 H 33 H 93 12/08/23 03:36 74 20 91 12/08/23 03:32 37.0 C 12/08/23 03:00 89/50 L 12/08/23 03:00 58 L 31 H 100 12/08/23 02:03 76 38 H 102/56 L 91 12/08/23 01:31 63 12/08/23 01:06 71 34 H 94 06/14/24 00:22 90/52 L 12/08/23 00:21 69 32 H 90 O2 Del Method O2 Flow Rate FiO2 12/08/23 10:39 12/08/23 10:13 High Flow Nasal Cannula 40 65 12/08/23 10:00 12/08/23 10:00 12/08/23 09:30 12/08/23 09:30 12/08/23 09:00 12/08/23 09:00 12/08/23 08:36 12/08/23 08:18 12/08/23 08:00 High Flow Nasal Cannula 65 12/08/23 07:59 High Flow Nasal Cannula 40 100 12/08/23 07:45 High Flow Nasal Cannula 40 65 12/08/23 07:30 12/08/23 07:03 12/08/23 06:42 12/08/23 06:00 12/08/23 05:42 12/08/23 05:00 12/08/23 04:36 12/08/23 04:28 12/08/23 04:03 12/08/23 03:36 High Flow Nasal Cannula 40 100 12/08/23 03:32 12/08/23 03:00 12/08/23 03:00 12/08/23 02:03 12/08/23 01:31 12/08/23 01:06 12/08/23 00:22 12/08/23 00:21
[2023-12-08] MEDS ORDERED: DEXTROSE 10% 1,000 ML IV PRN (13:11)
--- NOTE | 2023-12-08 13:22 | Pharmacy Report ---
Pharmacy Initial PN Consult Nt - Date of Service December 08, 2023 - Scope Pharmacy has been consulted on this date to manage parenteral nutrition orders and order appropriate labs. As part of the Nutrition Support Team Guidelines, pharmacy will work in conjunction with dietary when determining the patients c aloric needs. - Subjective * The patient is a 58 year old Female admitted on 12/06/23 for ACUTE RESP FAILURE. * Patient is to receive parenteral nutrition for chronic malabsorption. - Objective Vascular Access: * Patient currently has a central line- Saab catheter with dedicated lumen for PN. Height & Weight (Last Documented) Height 5 ft 3 in Weight 38.5 kg Diet Order(s) 12/08/23 05:38 NPO Intake & Ouput (24hrs) 12/07/23 12/08/23 12/09/23 06:59 06:59 06:59 Intake Total 4085 / 4085 4053.500 / 4053.500 100 / 100 Output Total 778 / 778 1886 / 1886 160 / 160 Balance 3307 / 3307 2167.500 / 2167.500 -60 / -60 Selected Laboratory Results 12/07/23 12/07/23 12/07/23 14:48 20:12 21:28 Sodium 137 130 L Potassium 3.1 L 7.3 H* D 4.0 D Chloride 112 H 113 H Carbon Dioxide 19 L 15 L Anion Gap 6 2 L BUN 38 H 35 H Creatinine 1.46 H 1.39 H Est GFR ( Amer) 44.9 47.6 Est GFR (Non-Af Amer) 38.7 41.1 BUN/Creatinine Ratio 26.0 H Glucose 354 H* Calcium 7.4 L 7.3 L Phosphorus 2.7 D Magnesium 4.4 H 12/08/23 04:48 Sodium 140 D Potassium 3.7 Chloride 113 H Carbon Dioxide 19 L Anion Gap 8 BUN 34 H Creatinine 1.50 H Est GFR ( Amer) 43.4 Est GFR (Non-Af Amer) 37.5 BUN/Creatinine Ratio 22.7 H Glucose 143 H Calcium 7.9 L Phosphorus 3.[address] - Follow Up Nutrition Assessment Start: 12/07/23 13:28 Freq: Status: Active Protocol: Document 12/08/23 10:11 [id number] (Rec: 12/08/23 10:31 [id number]) RD - Initial Nutrition Assessment Start: 12/07/23 12:58 Freq: Status: Active Protocol: Document 12/07/23 12:58 WN (Rec: 12/07/23 13:27 WN [id number]) - Assessment & Plan Assessment: * Appreciate dietitians recommendations for macronutrients. As discussed with dietary and ICU team, okay to increase to goal macronutrients tomorrow. Triglycerides were someone elevated at 167 mg/dL. Will hold lipids today and plan to restart tomorrow and recheck TGs Monday morning. * Continuous bicarb infusion will stop after current bag infuses (~1800) and a one time 50 meq sodium bicarb push is ordered after this. * As discussed on multidisciplinary rounds, okay to restart TPN given no growth in bcx. Per discussion with provider and dietitian, low concern for refeeding given chronic tpn use. Also discussed electrolyte monitoring warranted given bicarb administration and ROBINSON. * Patient received 20 meq kcl IV this morning prior to TPN initiation. Plan: * For Day #1 of TPN administration, the following will be ordered: * Macronutrients: * Amino Acids: 36 grams/day * Dextrose: 42 grams/day * Lipids: none grams/day * Micronutrients: * Sodium chloride: 40 mEq/day * Sodium acetate: 20 mEq/day * Potassium phosphate: 12 mMol/day * Potassium acetate: 20 mEq/day * Magnesium sulfate: 4.06 mEq/day * Multivitamins: 10 mL/day * Trace elements: 1 mL/day * Thiamine: 100 mg/day * Total volume of 893 mL will be infused over 24 hours and will provide 286 kcal/day * Labs will be ordered per PN protocol. * Pharmacy will follow and adjust PN orders on a daily basis. Thank you!
--- NOTE | 2023-12-08 14:46 | Nephrology Progress Note ---
Date of Service December 08, 2023 Assessment & Plan Admission and Anticipated Discharge Date Admission Date: December 06, 2023 Subjective Assessment & Plan (1) Acute kidney injury: ROBINSON in the setting of Septic Shock with pneumonia. even though creat of 1.6 may not appear high it is high for such a cechectic patient. Creat trending down so is a good sign with urine output. ROBINSON is from [facility] in a vulnerable patient with pre existing CKD and now with Pneumonia/sepsis. watch I and O and has good urine now. Creat now 1.4---1.5 range pretty much baseline Discussed with Dr rosado--fluid will be stopped after current bag over. (2) Acute hypoxemic respiratory failure: needing high o2. In ICU and still SOB (3) Acidosis: Bicarb dropped really low. has metabolic acidosis and likely some resp component also. But Much better now on Bicarb drip 100 meq. Can continue that but lower the rate to 50 ml/hr given her wt of 38.5 kilo. Wt up by 2 kilo overnight. Once current issue of ROBINSON, sepsis etc is resolved we will be able to comment if she really has Complex causes of Acidosis or not. (4) Septic shock: BP was very low but now is baseline. Abx and Iv fluid and pressors as needed. no pressors currently (5) Pneumonia: as per imaging, s/s and labs S--Overall condition better . making urine labs better. BP not as low. Physical Exam Physical Exam: Constitutional: very Cachectic. Ill appearing. confused. HEENT: EOMI, PERRLA Respiratory system: Decreased air entry bilaterally, no wheeze, no rhonchi, positive crackles bilaterally anteriorly and posteriorly CVS: S1-S2 positive, no murmurs or gallops Abdomen: Soft, nontender, nondistended, positive bowel sounds x4 Extremities: minimal pitting edema bilateral lower extremity Neuro: Awake alert confused Psych: Normal mood and affect G/U: Positive Yin Results & Data Vital Signs (Past 12 Hours) Vital Signs Temp Pulse Pulse Resp BP BP Pulse Ox 12/08/23 14:22 63 18 96 12/08/23 10:39 72 32 H 91 12/08/23 10:13 71 22 93 12/08/23 10:00 69 34 H 90 12/08/23 10:00 105/68 12/08/23 09:30 92/44 L 12/08/23 09:30 63 23 97 12/08/23 09:00 86/50 L 12/08/23 09:00 65 21 96 12/08/23 08:36 60 24 100 12/08/23 08:18 83 26 H 98 12/08/23 08:00 12/08/23 07:59 67 20 100 12/08/23 07:45 12/08/23 07:30 66 35 H 100 12/08/23 07:03 72 37 H 91 12/08/23 06:42 68 36 H 97 12/08/23 06:00 69 35 H 103/61 93 12/08/23 05:42 73 39 H 95 12/08/23 05:00 68 20 104/61 100 12/08/23 04:36 76 39 H 93 12/08/23 04:28 111/58 L 12/08/23 04:03 92 H 33 H 93 12/08/23 03:36 74 20 91 12/08/23 03:32 37.0 C 12/08/23 03:00 89/50 L 12/08/23 03:00 58 L 31 H 100 O2 Del Method O2 Flow Rate FiO2 12/08/23 14:22 High Flow Nasal Cannula 40 65 12/08/23 10:39 12/08/23 10:13 High Flow Nasal Cannula 40 65 12/08/23 10:00 12/08/23 10:00 12/08/23 09:30 12/08/23 09:30 12/08/23 09:00 12/08/23 09:00 12/08/23 08:36 12/08/23 08:18 12/08/23 08:00 High Flow Nasal Cannula 65 12/08/23 07:59 High Flow Nasal Cannula 40 100 12/08/23 07:45 High Flow Nasal Cannula 40 65 12/08/23 07:30 12/08/23 07:03 12/08/23 06:42 12/08/23 06:00 12/08/23 05:42 12/08/23 05:00 12/08/23 04:36 12/08/23 04:28 12/08/23 04:03 12/08/23 03:36 High Flow Nasal Cannula 40 100 12/08/23 03:32 12/08/23 03:00 06/14/24 03:00
[2023-12-08] MEDS ORDERED: CARBOHYDRATES FOR HYPOGLYCEMIA PO PRN (15:15)
[2023-12-08] MEDS ORDERED: DEXTROSE 50% 50 ML SYRINGE IV PRN (15:15)
[2023-12-08] MEDS ORDERED: GLUCOSE 40% GEL 15 GM TUBE PO PRN (15:15)
[2023-12-08] MEDS ORDERED: GLUCOSE 10 TAB/TUBE PO PRN (15:15)
[2023-12-08] MEDS ORDERED: GLUCAGON FOR INJ 1 MG VIAL IM PRN (15:15)
[2023-12-08] MEDS: PERIPHERAL TPN IV SCH (15:36)
[2023-12-08] MEDS: [UNRECOGNIZED DRUG - OTHER] IV SCH (15:36)
[2023-12-08 15:54] LABS: Hematocrit (blood only) 23.2 % (37.0-47.0); Hemoglobin 7.8 g/dl (12.0-16.0); Mean Corpuscular Hemoglobin 29.4 pg (25.0-34.0); Mean Corpuscular Hgb Conc 33.6 g/dL (32.0-36.0); Mean Corpuscular Volume 87.5 fL (80.0-100.0); Mean Platelet Volume 12.8 fL (9.4-12.4); Nucleated RBC # (auto) 0.03 K/uL (0.00-0.12); Nucleated RBC % (auto) 0.1 %; Platelet Count 261 K/uL (130-400); RDW Coefficient of Variation 18.1 % (11.5-14.5); RDW Standard Deviation 58.1 fL (36.4-46.3); Red Blood Count 2.65 M/uL (4.20-5.40); White Blood Count 31.57 K/ul (4.8-10.8)
[2023-12-08 16:10] LABS: Bilirubin,Total 0.3 mg/dl (0.2-1.0); Magnesium 2.3 mg/dl (1.7-2.4); Phosphorus 2.8 mg/dl (2.5-4.9)
[2023-12-08 16:46] LABS: BUN Creatinine Ratio 21.9 (10-20); Creatinine Clr Calc Pharmacy 24.9 ml/min; Est GFR (African American) 44.9 ml/min; Est GFR (Non-African American) 38.7 ml/min
[2023-12-08] MEDS: TPN/PPN CONSULT PHARMACY STA (18:00)
[2023-12-08] MEDS: SODIUM BICARB 8.4% INJ 50 MEQ/50 ML SYR IV SCH (18:42)
[2023-12-08] MEDS: FUROSEMIDE INJ 20 MG/2 ML VIAL IV ONE (20:27)
[2023-12-09] MEDS: MoRPHine SULFATE 2 MG/ML CARP ONE ×2 (01:58→08:38)
[2023-12-09] MEDS: MoRPHine SULFATE 2 MG/ML CARP IV STA ×2 (01:58→08:38)
[2023-12-09] MEDS: HYDROCORTISONE SOD 50 MG in SYRINGE 0 ML IV SCH (03:31)
[2023-12-09 05:13] LABS: Base Excess VBG -0.4 mEq/L; HCO3 VBG 25 mmol/L; Oxygen Saturation VBG < 60.0 %; PCO2 VBG 45 mmHg (38-50); PO2 VBG 30 mmHg; pH VBG 7.36 (7.36-7.41)
[2023-12-09 05:42] LABS: BUN Creatinine Ratio 23.5 (10-20); Calcium 7.4 mg/dl (8.6-10.3); Creatinine Clr Calc Pharmacy 28.1 ml/min; Est GFR (African American) 50.7 ml/min; Est GFR (Non-African American) 43.7 ml/min; Magnesium 2.3 mg/dl (1.7-2.4); Phosphorus 5.1 mg/dl (2.5-4.9)
[2023-12-09 06:02] LABS: Hematocrit (blood only) 21.3 % (37.0-47.0); Hemoglobin 6.9 g/dl (12.0-16.0); Mean Corpuscular Hemoglobin 28.6 pg (25.0-34.0); Mean Corpuscular Hgb Conc 32.4 g/dL (32.0-36.0); Mean Corpuscular Volume 88.4 fL (80.0-100.0); Mean Platelet Volume 12.9 fL (9.4-12.4); Nucleated RBC # (auto) 0.04 K/uL (0.00-0.12); Nucleated RBC % (auto) 0.2 %; Platelet Count 213 K/uL (130-400); RDW Coefficient of Variation 17.8 % (11.5-14.5); RDW Standard Deviation 57.5 fL (36.4-46.3); Red Blood Count 2.41 M/uL (4.20-5.40); White Blood Count 18.02 K/ul (4.8-10.8)
[2023-12-09 06:04] LABS: Basophils # (auto) 0.02 K/uL (0.00-0.20); Basophils % (auto) 0.1 %; Eosinophils # (auto) 0.01 K/uL (0.00-0.50); Eosinophils % (auto) 0.1 %; Hypochromasia Present; Immature Granulocytes # (auto) 0.22 K/uL (0.01-0.20); Immature Granulocytes % (auto) 1.2 %; Lymphocytes # (auto) 2.56 K/uL (1.20-3.40); Lymphocytes % (auto) 14.2 %; Monocytes # (auto) 0.47 K/uL (0.11-0.59); Monocytes % (auto) 2.6 %; Neutrophils # (auto) 14.74 K/uL (1.40-6.50); Neutrophils % (auto) 81.8 %; Target Cells 1+; Toxic Vacuolation 1+
[2023-12-09] MEDS ORDERED: SODIUM CHLORIDE 0.9% 250 ML IV PRN (07:50)
--- NOTE | 2023-12-09 07:53 | Critical Care Progress Note ---
Date of Service December 09, 2023 Assessment & Plan (1) Pneumonia: (2) Septic shock: (3) Acidosis: (4) Leukocytosis: (5) Acute hypoxemic respiratory failure: (6) Acute kidney injury superimposed on chronic kidney disease: (7) AMS (altered mental status): (8) History of nephrectomy: Plan Reason Critically Ill: 58-year-old female past medical history of protein calorie malnutrition on TPN, bipolar, presented to hospital with shortness of breath, found to have hypoxia and hypotension. Sent to ICU for further management Neuro - [facility] ICU: Positive --Metabolic encephalopathy Likely secondary to sepsis CT head, head CT as well as neck CTA - 12/06/2023 TSH 1.25 on 12/06/2023 Cardiac - -- New onset sinus bradycardia Does not seem to be on any medication to cause bradycardia Would continue to monitor -- Hypotension Likely secondary to sepsis Responded to fluids Random cortisol 14.29 Continue to monitor, vasopressor support if the MAP stays persistently less than 65 Respiratory - -- Acute hypoxic respiratory failure Likely secondary to multilobar pneumonia, possibly aspiration Bedside speech therapy evaluation shows high probability of aspiration, keep patient n.p.o. Patient is not immunosuppressed to think about PJP Respiratory bio fire negative for everything on 12/06/2023 BNP 208, procalcitonin 4.49 No peripheral eosinophilia Patient's oxygen requirement is very high for bronchoscopy CT chest 12/06/2023 personally reviewed: Patchy groundglass opacities appreciated bilaterally No significant mediastinal lymphadenopathy GI - -- Chronic malabsorption disorder with severe protein calorie moderation Likely post gastric bypass surgery Is on TPN RENAL/LYTES - -- S/p HAGMA Delta-delta: Less than 1, gap plus nongap Urine electrolytes showed positive gap show urinary source is one of the reasons for gap Patient also has significant surgeries and malabsorption syndrome, due to lactic acidosis might also be playing a role - -- Urinary incontinence On Vesicare at home ENDO - -- ICU hypoglycemia protocol HEME - --Acute on chronic normocytic anemia Will transfuse 1 unit of PRBC on 12/08/2023 Monitor H&H ID - --Gram-negative bacilli in the urine --> E. coli pansensitive Continue with antibiotics Follow-up sensitivity -- Multilobar pneumonia Continue broad-spectrum antibiotic S/p empiric micafungin for 2 days Respiratory bio fire negative -- Given history of TPN Empiric coverage with antifungal --Prophylaxis VTE: Heparin GI: None Lines: Left central PICC Diet: N.p.o. , got TPN on 12/08/2023 Plan: In/out: +179 mL, urine output 1360 Patient's metabolic encephalopathy seems to be getting worse. She does pull off her high flow and significantly desaturating on it. I did give her a dose of haloperidol 2.5 mg given that the QTc was 459. She likely has lower back pain as well, continue with Tylenol and will add morphine 2 mg every 4 hours as needed pain. Will give 20 mg of Lasix today. Repeat BMP later today if the creatinine is still stable to trending down then we will give another 20 mg tonight. Hemoglobin seems to be trending down, likely dilutional as well given the patient is +6 L since coming to the hospital. Will give 1 unit PRBC Hold TPN. Has been off Levophed since 2 AM. Continue with hydrocortisone tapering dose Change cefepime to Rocephin I have personally spent 38 minutes of critical care time in the direct management of this patient. This is a life/limb threatening event. This includes time spent evaluating patient, direct bedside care, chart review, placing orders, interpretation of diagnostic studies, discussion with consultants, patient, and family members, as well as other required patient management activities. This time is exclusive of all separately billable procedures, and teaching time and separate from and in addition to any other critical care service time. Please note the above document was generated using voice recognition software. It may contain grammatical, syntax or spelling errors. Admission and Anticipated Discharge Date Admission Date: December 06, 2023 Subjective Patient seen and examined at bedside. Overnight patient with 2 mg of morphine as she was agitated/delirious Today the time of examination she was again restless/agitated and delirious I gave her 2.5 mg of haloperidol but it did not help. This was followed by 2 mg of morphine which did mellow her down Overnight she has also been having bradycardia which is sinus. Has been afebrile. Making good amount of urine Review of Systems 2 Review of Systems: Unobtainable due to mental health condition Physical Exam 2 Physical Exam: Constitutional: No acute distress HEENT: EOMI, PERRLA Respiratory system: Decreased air entry bilaterally, no wheeze, no rhonchi, positive crackles bilaterally anteriorly and posteriorly CVS: S1-S2 positive, no murmurs or gallops Abdomen: Soft, nontender, nondistended, positive bowel sounds x4 Extremities: +1 pulses bilaterally radialis/ dorsalis pedis, no cyanosis, minimal pitting edema bilateral lower extremity Neuro: Confused Psych: Agitated G/U: Positive Yin Skin: no rashes, warm and dry Lymphatic: no cervical or axillary lymphadenopathy Results & Data Results & Data Vital Signs (Past 12 Hours) Vital Signs Temp Pulse Pulse Resp BP BP Pulse Ox 12/09/23 06:00 79 28 H 120/64 90 12/09/23 05:09 49 L 22 114/57 L 97 12/09/23 04:27 50 L 16 100 12/09/23 04:00 49 L 29 H 100 12/09/23 04:00 102/59 L 12/09/23 04:00 36.6 C 12/09/23 03:45 52 L 24 100 12/09/23 03:45 101/55 L 12/09/23 03:03 117/71 12/09/23 03:03 69 18 95 12/09/23 02:01 79 20 93 12/09/23 02:00 130/71 12/09/23 02:00 57 L 16 98 12/09/23 01:01 117/45 L 12/09/23 00:57 60 22 95 12/09/23 00:15 55 L 28 H 96 12/09/23 00:06 103/56 L 12/09/23 00:00 103/56 L 12/08/23 23:48 69 12/08/23 23:30 104/61 12/08/23 22:54 56 L 33 H 121/63 99 12/08/23 22:30 65 18 94 12/08/23 22:21 56 L 34 H 106/58 L 96 12/08/23 21:00 57 L 26 H 100 12/08/23 21:00 105/51 L 12/08/23 20:16 124/74 12/08/23 20:12 72 26 H 91 12/08/23 20:00 37.1 C O2 Del Method O2 Flow Rate FiO2 12/09/23 06:00 12/09/23 05:09 12/09/23 04:27 High Flow Nasal Cannula 60 30 12/09/23 04:00 12/09/23 04:00 12/09/23 04:00 12/09/23 03:45 12/09/23 03:45 12/09/23 03:03 12/09/23 03:03 12/09/23 02:01 High Flow Nasal Cannula 70 35 12/09/23 02:00 12/09/23 02:00 12/09/23 01:01 12/09/23 00:57 12/09/23 00:15 12/09/23 00:06 12/09/23 00:00 12/08/23 23:48 12/08/23 23:30 12/08/23 22:54 12/08/23 22:30 High Flow Nasal Cannula 65 30 12/08/23 22:21 12/08/23 21:00 12/08/23 21:00 12/08/23 20:16 12/08/23 20:12 12/08/23 20:00 Laboratory Results 12/09/23 05:03 12/09/23 05:03 Coding Level of Care Code 25818 CRITICAL CARE 1ST 30-74M Diagnoses Pneumonia J18.9 Septic shock A41.9; R65.21 Acidosis E87.20 Leukocytosis D72.829 Acute hypoxemic respiratory failure J96.01 Acute kidney injury superimposed on chronic kidney disease N17.9; N18.9 AMS (altered mental status) R41.82 History of nephrectomy Z90.5
[2023-12-09] MEDS: HALOPERIDOL LACTATE 5 MG/ML 1 ML VIAL ONE (08:16)
[2023-12-09] MEDS: HALOPERIDOL LACTATE 5 MG/ML 1 ML VIAL IV STA (08:38)
--- NOTE | 2023-12-09 09:30 | Hospitalist Progress Note ---
Date of Service December 09, 2023 Assessment & Plan (1) Protein calorie malnutrition: (2) History of nephrectomy: (3) Pneumonia: (4) Septic shock: (5) Acidosis: (6) Leukocytosis: (7) Acute hypoxemic respiratory failure: Plan Patient is a 58 year old female with PMHx significant for chronic malabsorption syndrome post bypass, severe protein calorie malnutrition on TPN, iron deficiency anemia, copper deficiency, h/o right nephrectomy in 2022, bipolar disorder, anxiety, depression, tobacco use, migraine headache, nonspecific white matter changes, myelopathy who presented to the ER with multiple medical complaints including SOB, dry mouth and speech changes. Septic Shock Pneumonia Complicated UTI Acute hypoxic respiratory Failure Upon arrival to ER patient noted to be hypotensive and hypoxic in the 70's. In ER afebrile, P: 94, R: 30, BP: 87/56, 78% on RA CTA Chest: No pulmonary embolus. Groundglass opacities compatible with pneumonia and/or aspiration. CT Head, CTA Head & neck: unremarkable WBC: 36.7. Lactate: 1.6, procalcitonin: 4.5 Was on 10L nonrebreather with O2 sat low 90's UA was suggestive of infection, urine culture grew E coli and Klebsiella Blood Cx x2 sets NGTD Fungal Cx pending Drug screen negative Suspect sepsis secondary to pneumonia, UTI. In ER given meropenem, vancomycin, 2 L NSS Was admitted to the ICU, Was on Cefepime (transitioned to rocephin) and Caspofungin Also on pressors for BP support as well as hydrocortisone. Pressors have since been weaned off Currently on hiFlo oxygen, wean as tolerated Continue to monitor Acute metabolic Encephalopathy Pt now confused Likely in setting of above. Delirium precautions. Frequent reorientation, avoid sedating medications Continue to monitor Acute kidney injury Metabolic acidosis History of nephrectomy Cr: 2.2 on admission ABG pH of 7.21, HCO3 of 8, pCO2 of 19. AG of 9 at that time. Recent ROBINSON end of 10/2023 with Cr: 1.6 on 12/03 and 1.7 on 11/21. Prior baseline Cr: 1.0-1.2 IVF in ER. Did have CTA with contrast in ER Monitor renal function Nephrology consulted, appreciate recs -was on bicarb drip, since discontinued -Cr now at baseline Continue to monitor Acute on chronic Anemia Hgb below 7 on 12/08 Baseline of 7-8 required 2 physician consent as pt in acute delirium, family cannot be contacted Anemia panel Likely dilutional Continue to monitor H/H Protein calorie malnutrition Aspiration S/P bypass BMI: 14 On TPN 4 days a week at home Nutrition consult, speech consult Currently NPO due to aspiration TPN re-started on 12/07, currently on hold Depression with anxiety: History Bipolar disorder On home buspirone, duloxetine, olanzapine H/O migraine Denies current SMALLWOOD Tobacco use Smokes 1/2ppd Smoking cessation encouraged Diet: NPO, TPN on hold DVT Prophylaxis: Heparin SQ Admission and Anticipated Discharge Date Admission Date: December 06, 2023 Subjective Pt seen in the AM. Is more confused than usual, needing blood, unable to consent. Difficulty contacting family. Agitated overnight. Review of Systems Review of Systems: All systems reviewed & are unremarkable except as noted in Subjective Physical Exam Physical Exam: General: thin, frail Psych: Agitated mood and affect HEENT: NC/AT CV: RRR, Normal s1, s2. No murmurs appreciated Resp: no increased effort of breathing Abdomen: Soft Extremities: No edema in lower extremities bilaterally. Results & Data Results & Data Vital Signs (Past 12 Hours) Vital Signs Temp Pulse Pulse Resp BP BP Pulse Ox 12/09/23 08:45 54 L 24 94 12/09/23 06:00 79 28 H 120/64 90 12/09/23 05:09 49 L 22 114/57 L 97 12/09/23 04:27 50 L 16 100 12/09/23 04:00 49 L 29 H 100 12/09/23 04:00 102/59 L 12/09/23 04:00 36.6 C 12/09/23 03:45 52 L 24 100 12/09/23 03:45 101/55 L 12/09/23 03:03 117/71 12/09/23 03:03 69 18 95 12/09/23 02:01 79 20 93 12/09/23 02:00 130/71 12/09/23 02:00 57 L 16 98 12/09/23 01:01 117/45 L 12/09/23 00:57 60 22 95 12/09/23 00:15 55 L 28 H 96 12/09/23 00:06 103/56 L 12/09/23 00:00 103/56 L 12/08/23 23:48 69 12/08/23 23:30 104/61 12/08/23 22:54 56 L 33 H 121/63 99 12/08/23 22:30 65 18 94 12/08/23 22:21 56 L 34 H 106/58 L 96 O2 Del Method O2 Flow Rate FiO2 12/09/23 08:45 High Flow Nasal Cannula 40 100 12/09/23 06:00 12/09/23 05:09 12/09/23 04:27 High Flow Nasal Cannula 60 30 12/09/23 04:00 12/09/23 04:00 12/09/23 04:00 12/09/23 03:45 12/09/23 03:45 12/09/23 03:03 12/09/23 03:03 12/09/23 02:01 High Flow Nasal Cannula 70 35 12/09/23 02:00 12/09/23 02:00 12/09/23 01:01 12/09/23 00:57 12/09/23 00:15 12/09/23 00:06 12/09/23 00:00 12/08/23 23:48 12/08/23 23:30 12/08/23 22:54 12/08/23 22:30 High Flow Nasal Cannula 65 30 12/08/23 22:21
[2023-12-09] MEDS: FUROSEMIDE INJ 20 MG/2 ML VIAL IV ONE ×2 (09:58→19:28)
--- NOTE | 2023-12-09 15:14 | Nephrology Progress Note ---
Date of Service December 09, 2023 Assessment & Plan (1) Acute kidney injury: Plan: ROBINSON in the setting of Septic Shock with pneumonia. Cr is down to 1.3 today ROBINSON is from [facility] in a vulnerable patient with pre existing CKD and now with Pneumonia/sepsis. watch I and O. No need for IV fluids unless hypotensive (2) Acute hypoxemic respiratory failure: Plan: needing high o2 per ICU Admission and Anticipated Discharge Date Admission Date: December 06, 2023 Subjective Seen for acute kidney injury. Patient is somnolent and unable to give history. She is on one-to-one sitter. She is making urine and creatinine downtrending. Review of Systems Review of Systems: unable to obtain due to altered mental status Physical Exam Physical Exam: General exam: drowsy but arousable. on high flow oxygen HEENT: Pupils are equal and reactive to light Neck: No JVD, neck is supple trachea is midline Respiratory system: Clear breath sounds bilaterally. Gastrointestinal: Abdomen is soft, non distended, non tender, bowel sounds are present CVS: Regular rate and rhythm. No murmurs, rubs or gallops Musculoskeletal: No joint or muscle tenderness Extremities: Non tender, no edema, peripheral pulses are present Neuro: Drowsy, intermittently confused Skin: No rashes Results & Data Vital Signs (Past 12 Hours) Vital Signs Temp Pulse Pulse Resp BP Pulse Ox Pulse Ox 12/09/23 12:46 106/51 L 12/09/23 12:45 43 L 23 92 12/09/23 12:33 28 H 76 L 12/09/23 12:15 47 L 18 92 12/09/23 12:15 108/66 12/09/23 12:10 36.4 C L 46 L 22 114/65 94 12/09/23 12:09 55 L 19 84 L 12/09/23 11:58 36.4 C L 47 L 24 109/58 L 94 12/09/23 11:46 109/58 L 12/09/23 11:45 44 L 22 95 12/09/23 11:39 40 L 12 94 12/09/23 11:36 45 L 22 97 12/09/23 11:30 105/62 12/09/23 11:27 43 L 23 93 12/09/23 11:08 36.5 C 48 L 24 112/55 L 99 12/09/23 11:07 36.6 C 35 L 22 101/56 L 99 12/09/23 11:06 41 L 22 99 12/09/23 10:45 47 L 15 96 12/09/23 10:45 111/61 12/09/23 10:39 49 L 15 95 12/09/23 10:38 36.4 C L 45 L 22 114/62 99 12/09/23 10:23 36.5 C 48 L 22 114/62 98 12/09/23 10:18 103/62 12/09/23 10:18 48 L 24 100 12/09/23 10:16 36.5 C 47 L 20 103/62 99 12/09/23 10:00 36.4 C L 47 L 16 108/67 99 12/09/23 09:45 46 L 13 100 12/09/23 09:45 113/59 L 12/09/23 09:33 46 L 14 12/09/23 09:00 45 L 17 100 12/09/23 09:00 123/61 12/09/23 08:48 61 19 96 12/09/23 08:45 54 L 24 94 12/09/23 08:09 114/59 L 12/09/23 08:09 50 L 17 92 12/09/23 07:36 69 32 H 92 12/09/23 07:00 50 L 28 H 93 12/09/23 07:00 109/57 L 12/09/23 07:00 12/09/23 07:00 99 12/09/23 07:00 12/09/23 07:00 36.3 C L 52 L 22 95 12/09/23 06:30 50 L 15 98 12/09/23 06:30 103/60 12/09/23 06:15 54 L 19 95 12/09/23 06:15 117/64 12/09/23 06:03 58 L 26 H 90 12/09/23 06:00 79 28 H 120/64 90 12/09/23 05:09 49 L 22 114/57 L 97 12/09/23 04:27 50 L 16 100 12/09/23 04:00 49 L 29 H 100 12/09/23 04:00 102/59 L 12/09/23 04:00 36.6 C 12/09/23 03:45 52 L 24 100 12/09/23 03:45 101/55 L O2 Del Method O2 Del Method O2 Flow Rate O2 Flow Rate FiO2 12/09/23 12:46 12/09/23 12:45 12/09/23 12:33 12/09/23 12:15 12/09/23 12:15 12/09/23 12:10 30 12/09/23 12:09 12/09/23 11:58 12/09/23 11:46 12/09/23 11:45 12/09/23 11:39 High Flow Nasal Cannula 30 50 12/09/23 11:36 12/09/23 11:30 12/09/23 11:27 12/09/23 11:08 12/09/23 11:07 60 12/09/23 11:06 12/09/23 10:45 12/09/23 10:45 12/09/23 10:39 12/09/23 10:38 12/09/23 10:23 12/09/23 10:18 12/09/23 10:18 12/09/23 10:16 12/09/23 10:00 12/09/23 09:45 12/09/23 09:45 12/09/23 09:33 12/09/23 09:00 12/09/23 09:00 12/09/23 08:48 12/09/23 08:45 High Flow Nasal Cannula 40 100 12/09/23 08:09 12/09/23 08:09 12/09/23 07:36 12/09/23 07:00 12/09/23 07:00 12/09/23 07:00 Oxyhood 40 60 12/09/23 07:00 High Flow Nasal Cannula 40 12/09/23 07:00 High Flow Nasal Cannula 100 12/09/23 07:00 High Flow Nasal Cannula 40 60 12/09/23 06:30 12/09/23 06:30 12/09/23 06:15 12/09/23 06:15 12/09/23 06:03 12/09/23 06:00 12/09/23 05:09 12/09/23 04:27 High Flow Nasal Cannula 60 30 12/09/23 04:00 12/09/23 04:00 12/09/23 04:00 12/09/23 03:45 12/09/23 03:45 Laboratory Results 12/08/23 12/09/23 15:10 05:03 WBC 31.57 H* 18.02 H D RBC 2.65 L 2.41 L MCV 87.5 88.4 MCH 29.4 28.6 MCHC 33.6 32.4 RDW Std Deviation 58.1 H 57.5 H RDW Coeff of Mike 18.1 H 17.8 H Plt Count 261 213 MPV 12.8 H 12.9 H Phosphorus 2.8 5.1 H D
[2023-12-09 15:36] LABS: BUN Creatinine Ratio 25.5 (10-20); Calcium 7.7 mg/dl (8.6-10.3); Creatinine Clr Calc Pharmacy 27.1 ml/min; Est GFR (African American) 48.5 ml/min; Est GFR (Non-African American) 41.8 ml/min; Potassium 3.8 mmol/L (3.5-5.1)
--- NOTE | 2023-12-09 17:50 | Electrocardiogram Report ---
Test Reason : Blood Pressure : / mmHG Vent. Rate : 057 BPM Atrial Rate : 057 BPM P-R Int : 126 ms QRS Dur : 088 ms QT Int : 442 ms P-R-T Axes : 045 -35 035 degrees QTc Int : 430 ms Sinus bradycardia with sinus arrhythmia Left axis deviation Low voltage QRS Abnormal ECG When compared with ECG of 07-DEC-2023 05:34, Vent. rate has decreased BY 30 BPM T wave amplitude has increased in Lateral leads Confirmed by Vic Cuba ([id number]) on 12/09/2023 5:49:36 PM Referred By: REFERRED SELF Confirmed By:Deven Cuba
[2023-12-09] MEDS: MoRPHine SULFATE 2 MG/ML CARP IV PRN (19:16)
[2023-12-09] MEDS: POTASSIUM CHLORIDE / WTR 20 MEQ/100 ML PLCT IV ONE (19:28)
[2023-12-09] MEDS: cefTRIAXone SODIUM 2,000 MG/50 ML BAG IV SCH (21:21)
[2023-12-10 04:47] LABS: BUN Creatinine Ratio 24.2 (10-20); Calcium 8.1 mg/dl (8.6-10.3); Creatinine Clr Calc Pharmacy 25.5 ml/min; Est GFR (African American) 43.8 ml/min; Est GFR (Non-African American) 37.8 ml/min; Phosphorus 3.7 mg/dl (2.5-4.9); Potassium 3.6 mmol/L (3.5-5.1)
[2023-12-10 07:26] LABS: Basophils # (auto) 0.05 K/uL (0.00-0.20); Basophils % (auto) 0.2 %; Eosinophils # (auto) 0.03 K/uL (0.00-0.50); Eosinophils % (auto) 0.1 %; Hematocrit (blood only) 28.1 % (37.0-47.0); Hemoglobin 9.4 g/dl (12.0-16.0); Immature Granulocytes # (auto) 0.62 K/uL (0.01-0.20); Immature Granulocytes % (auto) 2.9 %; Lymphocytes # (auto) 3.17 K/uL (1.20-3.40); Lymphocytes % (auto) 15.1 %; Mean Corpuscular Hemoglobin 29.3 pg (25.0-34.0); Mean Corpuscular Hgb Conc 33.5 g/dL (32.0-36.0); Mean Corpuscular Volume 87.5 fL (80.0-100.0); Mean Platelet Volume 12.6 fL (9.4-12.4); Monocytes # (auto) 0.67 K/uL (0.11-0.59); Monocytes % (auto) 3.2 %; Neutrophils # (auto) 16.49 K/uL (1.40-6.50); Neutrophils % (auto) 78.5 %; Nucleated RBC # (auto) 0.06 K/uL (0.00-0.12); Nucleated RBC % (auto) 0.3 %; Platelet Count 192 K/uL (130-400); RDW Coefficient of Variation 17.4 % (11.5-14.5); RDW Standard Deviation 55.3 fL (36.4-46.3); Red Blood Count 3.21 M/uL (4.20-5.40); White Blood Count 21.03 K/ul (4.8-10.8)
--- NOTE | 2023-12-10 08:10 | Hospitalist Progress Note ---
Date of Service December 10, 2023 Assessment & Plan (1) Protein calorie malnutrition: (2) History of nephrectomy: (3) Pneumonia: (4) Septic shock: (5) Acidosis: (6) Leukocytosis: (7) Acute hypoxemic respiratory failure: Plan Patient is a 58 year old female with PMHx significant for chronic malabsorption syndrome post bypass, severe protein calorie malnutrition on TPN, iron deficiency anemia, copper deficiency, h/o right nephrectomy in 2022, bipolar disorder, anxiety, depression, tobacco use, migraine headache, nonspecific white matter changes, myelopathy who presented to the ER with multiple medical complaints including SOB, dry mouth and speech changes. Septic Shock Pneumonia Complicated UTI Acute hypoxic respiratory Failure Upon arrival to ER patient noted to be hypotensive and hypoxic in the 70's. In ER afebrile, P: 94, R: 30, BP: 87/56, 78% on RA CTA Chest: No pulmonary embolus. Groundglass opacities compatible with pneumonia and/or aspiration. CT Head, CTA Head & neck: unremarkable WBC: 36.7. Lactate: 1.6, procalcitonin: 4.5 Was on 10L nonrebreather with O2 sat low 90's UA was suggestive of infection, urine culture grew E coli and Klebsiella Blood Cx x2 sets NGTD Fungal Cx NGTD Drug screen negative Suspect sepsis secondary to pneumonia, UTI. In ER given meropenem, vancomycin, 2 L NSS Was admitted to the ICU, Was on Cefepime (transitioned to rocephin) and Caspofungin Also on pressors for BP support as well as hydrocortisone. Pressors have since been weaned off Currently on hiFlo oxygen, wean as tolerated Continue to monitor Acute metabolic Encephalopathy Pt now confused Likely in setting of above. Delirium precautions. Frequent reorientation, avoid sedating medications Continue to monitor Acute kidney injury Metabolic acidosis History of nephrectomy Cr: 2.2 on admission ABG pH of 7.21, HCO3 of 8, pCO2 of 19. AG of 9 at that time. Recent ROBINSON end of 10/2023 with Cr: 1.6 on 12/03 and 1.7 on 11/21. Prior baseline Cr: 1.0-1.2 IVF in ER. Did have CTA with contrast in ER Monitor renal function Nephrology consulted, appreciate recs -was on bicarb drip, since discontinued -Cr now at baseline Continue to monitor Bradycardia Episodes on 12/09 in setting of morphine d/c morphine, consider alternative nonnarcotic for pain management Continue to monitor on telemetry Acute on chronic Anemia Hgb below 7 on 12/08 Baseline of 7-8 required 2 physician consent as pt in acute delirium, family cannot be contacted Anemia panel Likely dilutional Continue to monitor H/H Protein calorie malnutrition Aspiration S/P bypass BMI: 14 On TPN 4 days a week at home Nutrition consult, speech consult Currently NPO due to aspiration TPN re-started on 12/07, currently on hold Depression with anxiety: History Bipolar disorder On home buspirone, duloxetine, olanzapine H/O migraine Denies current SMALLWOOD Tobacco use Smokes 1/2ppd Smoking cessation encouraged Diet: NPO, TPN on hold DVT Prophylaxis: Heparin SQ Admission and Anticipated Discharge Date Admission Date: December 06, 2023 Subjective pt seen in the early AM. Reports of bradycardia overnight after morphine. Also now requiring a sitter as pulling at equipment. Review of Systems Review of Systems: All systems reviewed & are unremarkable except as noted in Subjective Physical Exam Physical Exam: General: thin, frail Psych: calm mood and affect at time of exam HEENT: NC/AT CV: RRR Resp: no increased effort of breathing, NC in nares Abdomen: Soft Extremities: No edema in lower extremities bilaterally. Results & Data Results & Data Vital Signs (Past 12 Hours) Vital Signs Temp Pulse Pulse Resp BP Pulse Ox O2 Del Method 12/10/23 06:12 74 22 113/57 L 98 12/10/23 06:01 121/57 L 12/10/23 05:57 72 21 92 12/10/23 05:33 51 L 20 95 High Flow Nasal Cannula 12/10/23 05:06 51 L 12 118/62 96 12/10/23 04:03 40 L 14 116/58 L 96 12/10/23 04:00 36.6 C 12/10/23 03:05 49 L 12 142/57 H 96 12/10/23 02:50 43 L 14 97 12/10/23 02:30 94/52 L 12/10/23 02:29 39 L 14 96 12/10/23 01:28 125/63 12/10/23 01:23 48 L 15 94 12/10/23 00:35 49 L 12/09/23 23:54 36.5 C 12/09/23 23:48 57 L 28 H 118/68 90 12/09/23 23:03 49 L 15 155/68 H 94 12/09/23 22:38 51 L 16 94 High Flow Nasal Cannula 12/09/23 22:30 111/56 L 12/09/23 22:30 51 L 18 94 12/09/23 21:06 59 L 20 124/67 95 12/09/23 20:15 50 L 16 111/54 L 94 12/09/23 20:11 42 L 16 93 High Flow Nasal Cannula O2 Flow Rate FiO2 12/10/23 06:12 12/10/23 06:01 12/10/23 05:57 12/10/23 05:33 30 75 12/10/23 05:06 12/10/23 04:03 12/10/23 04:00 12/10/23 03:05 12/10/23 02:50 12/10/23 02:30 12/10/23 02:29 12/10/23 01:28 12/10/23 01:23 12/10/23 00:35 12/09/23 23:54 12/09/23 23:48 12/09/23 23:03 12/09/23 22:38 30 45 12/09/23 22:30 12/09/23 22:30 12/09/23 21:06 12/09/23 20:15 12/09/23 20:11 30 45
--- NOTE | 2023-12-10 08:39 | Critical Care Progress Note ---
Date of Service December 10, 2023 Assessment & Plan (1) Pneumonia: (2) Septic shock: (3) Acidosis: (4) Leukocytosis: (5) Acute hypoxemic respiratory failure: (6) Acute kidney injury superimposed on chronic kidney disease: (7) AMS (altered mental status): (8) History of nephrectomy: Plan Reason Critically Ill: 58-year-old female past medical history of protein calorie malnutrition on TPN, bipolar, presented to hospital with shortness of breath, found to have hypoxia and hypotension. Sent to ICU for further management Neuro - [facility] ICU: Positive --Metabolic encephalopathy Likely secondary to sepsis CT head, head CT as well as neck CTA - 12/06/2023 TSH 1.25 on 12/06/2023 Cardiac - -- New onset sinus bradycardia Does not seem to be on any medication to cause bradycardia Would continue to monitor -- Hypotension Likely secondary to sepsis Responded to fluids Random cortisol 14.29 Currently on hydrocortisone for possible adrenal insufficiency. Will transition to 80 mg IV Solu-Medrol 3 times daily. Off vasopressors for greater than 24 hours. Respiratory - -- Acute hypoxic respiratory failure Likely secondary to multilobar pneumonia, possibly aspiration. Question possible diffuse alveolar hemorrhage. Patient unstable for bronchoscopy and unable to be consented. Will empirically treat with IV methylprednisone, 80 mg 3 times daily. Respiratory viral panel on the was negative Check urine Legionella antigen and add azithromycin. Wean high flow nasal cannula as able. Bedside speech therapy evaluation shows high probability of aspiration, keep patient n.p.o. Respiratory bio fire negative for everything on 12/06/2023 BNP 208, procalcitonin 4.[address] chest 12/06/2023 personally reviewed: Patchy groundglass opacities appreciated bilaterally No significant mediastinal lymphadenopathy GI - -- Chronic malabsorption disorder with severe protein calorie moderation Likely post gastric bypass surgery Is on TPN Continue Protonix IV 40 mg daily. RENAL/LYTES - -- S/p HAGMA Resolved. -Monitor urine output closely. - -- Urinary incontinence On Vesicare at home ENDO - -- ICU hypoglycemia protocol HEME - --Acute on chronic normocytic anemia Status post 1 unit packed RBC 12/09/2023. Hemoglobin today 9.4. ID - --Gram-negative bacilli in the urine --> E. coli pansensitive Continue with antibiotics Follow-up sensitivity -- Multilobar pneumonia Continue Rocephin. Added azithromycin 12/10/2023. S/p empiric micafungin for 2 days Respiratory bio fire negative --Prophylaxis VTE: Heparin on hold at this time due to acute on chronic anemia 12/09/2023. SCDs Lines: Left central PICC Diet: N.p.o. , got TPN on 12/08/2023 Downgrade to PCU status at this time. Pulmonary will continue to follow. Admission and Anticipated Discharge Date Admission Date: December 06, 2023 Subjective Patient seen and examined. She was agitated and delirious last night. He has a sitter with her bedside this morning. She has not willing to answer any my questions. She shakes her head no when asked if she has any pain. She has been shouting at times earlier this morning. She is hemodynamically stable and on high flow oxygen at this time. Review of Systems Review of Systems: All systems reviewed & are unremarkable except as noted in HPI & below Physical Exam Physical Exam: Constitutional: No acute distress HEENT: EOMI, PERRLA Respiratory system: Decreased air entry bilaterally, no wheeze, no rhonchi, p ositive crackles bilaterally anteriorly and posteriorly CVS: S1-S2 positive, no murmurs or gallops Abdomen: Soft, nontender, nondistended, positive bowel sounds x4 Extremities: +1 pulses bilaterally radialis/ dorsalis pedis, no cyanosis, minimal pitting edema bilateral lower extremity Neuro: Confused Psych: Agitated G/U: Positive Yin Skin: no rashes, warm and dry Lymphatic: no cervical or axillary lymphadenopathy Results & Data Results & Data Vital Signs (Past 12 Hours) Vital Signs Temp Pulse Pulse Resp BP BP Pulse Ox 12/10/23 08:00 12/10/23 08:00 42 L 12/10/23 08:00 12/10/23 07:00 36.4 C L 82 20 117/49 L 98 12/10/23 07:00 12/10/23 06:12 74 22 113/57 L 98 12/10/23 06:01 121/57 L 12/10/23 05:57 72 21 92 12/10/23 05:33 51 L 20 95 12/10/23 05:06 51 L 12 118/62 96 12/10/23 04:03 40 L 14 116/58 L 96 12/10/23 04:00 36.6 C 06/16/24 03:05 49 L 12 142/57 H 96 12/10/23 02:50 43 L 14 97 12/10/23 02:30 94/52 L 12/10/23 02:29 39 L 14 96 12/10/23 01:28 125/63 12/10/23 01:23 48 L 15 94 12/10/23 00:35 49 L 12/09/23 23:54 36.5 C 12/09/23 23:48 57 L 28 H 118/68 90 12/09/23 23:03 49 L 15 155/68 H 94 12/09/23 22:38 51 L 16 94 12/09/23 22:30 111/56 L 12/09/23 22:30 51 L 18 94 12/09/23 21:06 59 L 20 124/67 95 Pulse Ox O2 Del Method O2 Del Method O2 Flow Rate O2 Flow Rate FiO2 12/10/23 08:00 High Flow Nasal Cannula 30 60 12/10/23 08:00 12/10/23 08:00 High Flow Nasal Cannula 65 12/10/23 07:00 High Flow Nasal Cannula 30 65 12/10/23 07:00 99 High Flow Nasal Cannula 65 12/10/23 06:12 12/10/23 06:01 12/10/23 05:57 12/10/23 05:33 High Flow Nasal Cannula 30 75 12/10/23 05:06 12/10/23 04:03 12/10/23 04:00 12/10/23 03:05 12/10/23 02:50 12/10/23 02:30 12/10/23 02:29 12/10/23 01:28 12/10/23 01:23 12/10/23 00:35 12/09/23 23:54 12/09/23 23:48 12/09/23 23:03 12/09/23 22:38 High Flow Nasal Cannula 30 45 12/09/23 22:30 12/09/23 22:30 12/09/23 21:06 Coding Level of Care Code 10119 SUB INP/OBS CARE 3/50MIN Diagnoses Pneumonia J18.9 Septic shock A41.9; R65.21 Acidosis E87.20 Leukocytosis D72.829 Acute hypoxemic respiratory failure J96.01 Acute kidney injury superimposed on chronic kidney disease N17.9; N18.9 AMS (altered mental status) R41.82 History of nephrectomy Z90.5
[2023-12-10] MEDS ORDERED: methylPREDNISolone 125 MG/2 ML VIAL IV SCH (09:00)
[2023-12-10] MEDS: AZITHROMYCIN 500 MG in DEXTROSE 5% 250 ML IV STA (09:20)
--- NOTE | 2023-12-10 09:22 | XRay Report ---
XR chest 1V portable HISTORY: 58 years-old Female dah? Acute shortness breath COMPARISON: 12/08/2023 TECHNIQUE: AP view of the chest FINDINGS: Sigmoidal thoracolumbar scoliosis redemonstrated. Left IJ catheter distal tip terminates in the SVC. Mild cardiomegaly. No pneumothorax or pleural effusion. Extensive intermixed interstitial and alveola r opacities are redemonstrated and overall appear generally stable. Bones appear grossly intact. Surg ical device within the stomach. Right upper quadrant surgical clips. IMPRESSION: Persistent extensive intermixed interstitial and alveolar opacities have not significantl y changed. Pneumonia, ARDS versus pulmonary edema are the differential considerations. ACT 112: Negative or not required by law. The above report was generated using voice recognition software. It may contain grammatical, syntax o r spelling errors. Electronically signed by: Maikel Lafleur M.D. 12/10/2023 9:20 AM
[2023-12-10] MEDS: methylPREDNISolone 80 MG in SYRINGE 0 ML IV SCH (09:27)
[2023-12-10] MEDS ORDERED: ACETAMINOPHEN 1,000 MG/100 ML VIAL IV PRN (09:35)
[2023-12-10] MEDS: ACETAMINOPHEN 10MG/ML Custom 600 MG in EMPTY BAG 0 ML IV PRN (11:24)
[2023-12-10] MEDS: CENTRAL TPN IV SCH (15:58)
[2023-12-10] MEDS: [UNRECOGNIZED DRUG - OTHER] IV SCH (15:58)
[2023-12-10] MEDS: CLINOLIPID 20% IV FAT EMULSION 250 ML IV SCH (15:58)
[2023-12-10] MEDS: STOP CLINOLIPID SCH (22:03)
[2023-12-11 06:13] LABS: Basophils # (auto) 0.04 K/uL (0.00-0.20); Basophils % (auto) 0.2 %; Hematocrit (blood only) 26.8 % (37.0-47.0); Hemoglobin 8.7 g/dl (12.0-16.0); Immature Granulocytes # (auto) 0.74 K/uL (0.01-0.20); Lymphocytes # (auto) 1.31 K/uL (1.20-3.40); Lymphocytes % (auto) 7.1 %; Mean Corpuscular Hemoglobin 28.8 pg (25.0-34.0); Mean Corpuscular Hgb Conc 32.5 g/dL (32.0-36.0); Mean Corpuscular Volume 88.7 fL (80.0-100.0); Mean Platelet Volume 13.1 fL (9.4-12.4); Monocytes # (auto) 0.54 K/uL (0.11-0.59); Monocytes % (auto) 2.9 %; Neutrophils # (auto) 15.84 K/uL (1.40-6.50); Neutrophils % (auto) 85.8 %; Nucleated RBC # (auto) 0.15 K/uL (0.00-0.12); Nucleated RBC % (auto) 0.8 %; Platelet Count 201 K/uL (130-400); RDW Coefficient of Variation 16.9 % (11.5-14.5); RDW Standard Deviation 53.6 fL (36.4-46.3); Red Blood Count 3.02 M/uL (4.20-5.40); White Blood Count 18.47 K/ul (4.8-10.8)
[2023-12-11 06:21] LABS: BUN Creatinine Ratio 29.6 (10-20); Calcium 8.3 mg/dl (8.6-10.3); Creatinine Clr Calc Pharmacy 28.1 ml/min; Est GFR (African American) 49.3 ml/min; Est GFR (Non-African American) 42.6 ml/min; Phosphorus 3.7 mg/dl (2.5-4.9); Potassium 3.6 mmol/L (3.5-5.1)
[2023-12-11] MEDS ORDERED: HYDROCORTISONE SOD 50 MG in SYRINGE 0 ML IV SCH (07:00)
[2023-12-11] MEDS: AZITHROMYCIN 250 MG in DEXTROSE 5% 250 ML IV SCH (08:22)
[2023-12-11] MEDS: LANTUS PER UNIT CHARGE SC SCH (08:54)
--- NOTE | 2023-12-11 09:19 | Pulmonology Progress Note ---
Date of Service December 11, 2023 Assessment & Plan (1) Acute hypoxemic respiratory failure: (2) Abnormal CT scan of lung: Plan Impression: 58-year-old female with severe malnutrition on outpatient TPN as well as bipolar with diffuse pulmonary infiltrates and hypoxemic respiratory failure. She has been initiated on empiric steroids that she was too unstable to consider bronchoscopy. Her oxygen requirement significantly improved. Recommendations: 1. Diffuse pulmonary infiltrates: Etiology unclear. Treated empirically with methylprednisolone 80 mg 3 times daily for possible alveolar hemorrhage as well as inflammatory etiologies. Urinalysis did not show evidence of significant hematuria although renal insufficiency was noted. BioFire unremarkable without peripheral eosinophilia however procalcitonin was elevated. BNP minimally elevated. It is significantly decreased patient is day 5 antibiotics (3 days cefepime, 2 days of Rocephin, 1 day meropenemreceived 3 days antifungal therapy is currently day 2 azithromycin). Continue antibiotics and steroids for now. Patient not appropriate for bronchoscopy given mental status, DNR/DNI status, and inability to provide consent as well as tenuous mental status. Repeat chest x-ray in a.m. 2. Hypoxemic respiratory failure: Significantly improved currently. Continue to wean oxygen as tolerated. Patient would benefit from pulmonary toilet mental status allows. 3. Prognosis significantly guarded at this point in time given the patient's frail current state. Will continue to follow with you. Admission and Anticipated Discharge Date Admission Date: December 06, 2023 Subjective Patient seen and examined. EMR reviewed. Discussed with off going wire frame dipper as well as with bedside critical care nurse. The patient is obtunded this morning. She is awake but is not really responding to verbal stimulus. Her respiratory status is improving she is down to 2 L nasal cannula. Review of Systems Review of Systems: Unobtainable due to reduced consciousness Physical Exam Physical Exam: General: thin, frail Psych: Obtunded HEENT: NC/AT CV: RRR, Normal s1, s2. No murmurs appreciated Resp: no increased effort of breathing Abdomen: Soft Extremities: No edema in lower extremities bilaterally. Results & Data Results & Data Vital Signs (Past 12 Hours) Vital Signs Temp Pulse Pulse Resp BP BP BP 12/11/23 07:42 12/11/23 07:00 37.3 C 69 20 119/66 12/11/23 05:30 64 17 12/11/23 05:00 66 13 12/11/23 04:33 68 12 12/11/23 04:09 85 23 12/11/23 03:48 69 12 12/11/23 03:23 111/60 12/11/23 03:21 72 20 12/11/23 03:00 36.5 C 74 18 111/60 12/11/23 03:00 73 12 12/11/23 02:51 68 15 12/11/23 02:06 56 L 20 12/11/23 01:33 60 15 12/11/23 01:27 61 17 12/11/23 00:51 65 13 12/11/23 00:03 53 L 11 L 12/10/23 23:54 66 11 L 12/10/23 23:03 62 22 12/10/23 23:03 154/75 H 12/10/23 23:00 36.6 C 73 21 154/75 H 12/10/23 22:30 67 16 12/10/23 22:12 66 15 12/10/23 21:30 59 L 17 Pulse Ox O2 Del Method O2 Del Method O2 Flow Rate 12/11/23 07:42 Nasal Cannula 12/11/23 07:00 90 Nasal Cannula 5 12/11/23 05:30 12/11/23 05:00 12/11/23 04:33 12/11/23 04:09 12/11/23 03:48 12/11/23 03:23 12/11/23 03:21 12/11/23 03:00 95 Nasal Cannula 2 12/11/23 03:00 12/11/23 02:51 12/11/23 02:06 12/11/23 01:33 12/11/23 01:27 12/11/23 00:51 12/11/23 00:03 12/10/23 23:54 12/10/23 23:03 12/10/23 23:03 12/10/23 23:00 95 Nasal Cannula 2 12/10/23 22:30 12/10/23 22:12 12/10/23 21:30 Critical Care Results & Data Vital Signs (Past 12 Hours) Vital Signs Temp Pulse Pulse Resp BP BP BP 12/11/23 07:42 12/11/23 07:00 37.3 C 69 20 119/66 12/11/23 05:30 64 17 12/11/23 05:00 66 13 12/11/23 04:33 68 12 12/11/23 04:09 85 23 12/11/23 03:48 69 12 12/11/23 03:23 111/60 12/11/23 03:21 72 20 12/11/23 03:00 36.5 C 74 18 111/60 12/11/23 03:00 73 12 12/11/23 02:51 68 15 12/11/23 02:06 56 L 20 12/11/23 01:33 60 15 12/11/23 01:27 61 17 12/11/23 00:51 65 13 12/11/23 00:03 53 L 11 L 12/10/23 23:54 66 11 L 12/10/23 23:03 62 22 12/10/23 23:03 154/75 H 12/10/23 23:00 36.6 C 73 21 154/75 H 12/10/23 22:30 67 16 12/10/23 22:12 66 15 12/10/23 21:30 59 L 17 Pulse Ox O2 Del Method O2 Del Method O2 Flow Rate 12/11/23 07:42 Nasal Cannula 12/11/23 07:00 90 Nasal Cannula 5 12/11/23 05:30 12/11/23 05:00 12/11/23 04:33 12/11/23 04:09 12/11/23 03:48 12/11/23 03:23 12/11/23 03:21 12/11/23 03:00 95 Nasal Cannula 2 12/11/23 03:00 12/11/23 02:51 12/11/23 02:06 12/11/23 01:33 12/11/23 01:27 12/11/23 00:51 12/11/23 00:03 12/10/23 23:54 12/10/23 23:03 12/10/23 23:03 12/10/23 23:00 95 Nasal Cannula 2 12/10/23 22:30 12/10/23 22:12 12/10/23 21:30 Lab & Micro Results (Past 24 Hours) RBC 3.02 M/uL (4.20-5.40) L 12/11/23 WBC 18.47 K/ul (4.8-10.8) H 12/11/23 Hgb 8.7 g/dl (12.0-16.0) L 12/11/23 Hct 26.8 % (37.0-47.0) L 12/11/23 MCV 88.7 fL (80.0-100.0) 12/11/23 MCH 28.8 pg (25.0-34.0) 12/11/23 MCHC 32.5 g/dL (32.0-36.0) 12/11/23 RDW Standard Deviation 53.6 fL (36.4-46.3) H 12/11/23 RDW Coefficient of Variation 16.9 % (11.5-14.5) H 12/11/23 Plt Count 201 K/uL (130-400) 12/11/23 MPV 13.1 fL (9.4-12.4) H 12/11/23 Nucleated Red Blood Cells % (auto) 0.8 % 12/10 Nucleated RBC Absolute Count (auto) 0.15 K/uL (0.00-0.12) H 12/11/23 Neutrophils (%) (Auto) 85.8 % 12/11/23 Lymphocytes (%) (Auto) 7.1 % 12/11/23 Monocytes # (Auto) 0.54 K/uL (0.11-0.59) 12/11/23 Eosinophils # (Auto) 0.00 K/uL (0.00-0.50) 12/11/23 Immature Granulocyte % (Auto) 4.0 % 12/11/23 Neutrophils # (Auto) 15.84 K/uL (1.40-6.50) H 12/11/23 Lymphocytes # (Auto) 1.31 K/uL (1.20-3.40) 12/11/23 Monocytes # (Auto) 0.54 K/uL (0.11-0.59) 12/11/23 Eosinophils # (Auto) 0.00 K/uL (0.00-0.50) 12/11/23 Basophils # (Auto) 0.04 K/uL (0.00-0.20) 12/11/23 Immature Granulocyte # (Auto) 0.74 K/uL (0.01-0.20) H 12/10 Na 145 mmol/L (136-145) 06/17/24 K 3.6 mmol/L (3.5-5.1) 12/11/23 Cl 109 mmol/L (98-107) H 12/11/23 CO2 28 mmol/L (21-32) 12/11/23 Anion Gap 8 (3-11) 12/11/23 BUN 40 mg/dl (6-23) H 12/11/23 Creatinine 1.35 mg/dl (0.6-1.2) H 12/11/23 Estimated GFR ( Amer) 49.3 ml/min 12/11/23 Estimated GFR (Non-Af Amer) 42.6 ml/min 12/11/23 BUN/Creatinine Ratio 29.6 (10-20) H 12/11/23 Glu 166 mg/dl (70-99(Fasting)) H 12/11/23 Ca 8.3 mg/dl (8.6-10.3) L 12/11/23 Phosphorus Level 3.7 mg/dl (2.5-4.9) 12/11/23 Mg 2.0 mg/dl (1.7-2.4) 12/11/23 05:26 Calcium Level 8.3 mg/dl (8.6-10.3) L 12/11/23 05:26 Microbiology 12/06/23 18:13 Fungal Smear - Final Blood Fungal Culture - Preliminary No yeast or fungus isolated - Report 1, Additional Report to Follow. Diagnostic Findings (Past 24 Hours) Chest X-Ray 12/10/23 08:28 XR chest 1V portable HISTORY: 58 years-old Female dah? Acute shortness breath COMPARISON: 12/08/2023 TECHNIQUE: AP view of the chest FINDINGS: Sigmoidal thoracolumbar scoliosis redemonstrated. Left IJ catheter distal tip terminates in the SVC. Mild cardiomegaly. No pneumothorax or pleural effusion. Extensive intermixed interstitial and alveolar opacities are redemonstrated and overall appear generally stable. Bones appear grossly intact. Surgical device within the stomach. Right upper quadrant surgical clips. IMPRESSION: Persistent extensive intermixed interstitial and alveolar opacities have not significantly changed. Pneumonia, ARDS versus pulmonary edema are the differential considerations. ACT 112: Negative or not required by law. The above report was generated using voice recognition software. It may contain grammatical, syntax or spelling errors. Electronically signed by: Maikel Lafleur M.D. 12/10/2023 9:20 AM I & O Totals 24 Hours 12/10/23 12/11/23 12/12/23 06:59 06:59 06:59 Intake Total 1553 / 1553 615 / 615 Output Total 1243 / 1243 755 / 755 550 / 550 Balance 310 / 310 -140 / -140 -550 / -550 Cumulative 12/06/23 13:06 thru 12/11/23 07:14 Intake Total 83732.201 Output Total 6572 Balance 5374.201 RT Ventilator Mngmt (Last Documented) Ventilator Ordered Settings Respiratory Rate 20 12/11/23 07:00 Fraction of Inspired Oxygen 30 12/10/23 16:00 Ventilator - PT Measurements Respiratory Rate 20 PG Care Time/CCT Total # of Minutes Spent Total Time Spent with Patient: Total time spent is greater than 50% in coordination of care (as documented) at patient's floor/unit and/or counseling patient: Coding Level of Care Code 63288 SUB INP/OBS CARE 3/50MIN Diagnoses Acute hypoxemic respiratory failure J96.[address] scan of lung R91.8
--- NOTE | 2023-12-11 10:12 | CT Scan Report ---
CT head/brain wo con CLINICAL HISTORY: 58 years-old Female with AMS speech changes. Acutely altered mental status with me tabolic encephalopathy TECHNIQUE: Multiple axial CT images of the head were obtained without contrast. A dose lowering tech nique was utilized adhering to the principles of ALARA. CT DOSE: 625.8 mGy.cm COMPARISON: 12/06/2023 FINDINGS: No acute intracranial hemorrhage, midline shift, intracranial mass, hydrocephalus, territorial ischem ia or abnormal extra-axial collection. Motion degraded exam. Extensive white matter hypodensities hav e progressively worsened from 12/06/2023. The samaniego-white interface is preserved. The calvarium is intact. Prior bilateral lens repair. The paranasal sinuses, mastoid air cells, and middle ear cavities are clear. IMPRESSION: 1. No acute intracranial hemorrhage, midline shift or acute territorial infarct. 2. Extensive white matter hypodensities throughout the cerebrum have progressively worsened compared to the 12/06/2023 study. Findings are suggestive of a nonspecific demyelinating disorder. These findin gs may be related to the patient's reported profound metabolic encephalopathy. ACT 112: Negative or not required by law. The above report was generated using voice recognition software. It may contain grammatical, syntax o r spelling errors. Electronically signed by: Maikel Lafleur M.D. 12/11/2023 10:11 AM
--- NOTE | 2023-12-11 11:06 | Pharmacy Report ---
Pharmacy PN Follow-up Note - Date of Service December 11, 2023 - Subjective Patient is currently on day #3 of TPN for severe malnutrition. - Objective Height & Weight (Last Documented) Height 5 ft 3 in Weight 40.2 kg Diet Order(s) 12/08/23 05:38 NPO Intake & Ouput (24hrs) 12/10/23 12/11/23 12/12/23 06:59 06:59 06:59 Intake Total 1553 / 1553 615 / 615 252.5 / 252.5 Output Total 1243 / 1243 755 / 755 550 / 550 Balance 310 / 310 -140 / -140 -297.5 / -297.5 Selected Laboratory Results 12/11/23 05:26 Sodium 145 Potassium 3.6 Chloride 109 H Carbon Dioxide 28 Anion Gap 8 BUN 40 H Creatinine 1.35 H Est GFR ( Amer) 49.3 Est GFR (Non-Af Amer) 42.6 BUN/Creatinine Ratio 29.6 H Glucose 166 H Calcium 8.3 L Phosphorus 3.7 Magnesium 2.0 Triglycerides 240 H - Assessment & Plan Assessment: * Most electrolytes are within normal limits. Chloride is slightly elevated at 109 so will limit this in the bag. * Corrected calcium for hypoalbuminemia is normal. * Triglycerides were elevated at 167 prior to starting TPN. Repeat level was up to 240 today following 50 g of Clinolipid x 2 days. Case was discussed with registered dietitian. Plan to hold lipids today and recheck a triglyceride level on 12/13/23. Registered dietitian believes once weekly lipids should prevent FA deficiency. * Registered dietitian suggested running TPN over 8 hours since the volume is so little. Agree with this decision and will transition to 8 hour infusions starting today ([id number]). * Will add more potassium to the bag today as well as folate. Plan: * For Day #3 of TPN administration, the following will be ordered: * Macronutrients: * Amino Acids: 58 grams/day * Dextrose: 101 grams/day * (holding for now) * Micronutrients: * Sodium acetate: 40 mEq/day * Potassium phosphate: 15 mMol/day * Potassium chloride: 40 mEq/day * Magnesium sulfate: 4.06 mEq/day * Calcium gluconate: 4.65 mEq/day * Multivitamins: 10 mL/day * Trace elements: 1 mL/day * Thiamine: 100 mg/day * Folic Acid: 1 mg/day * Total volume of 788.2 mL will be infused over 8 hours and will provide 573 kcal/day * Labs will be ordered per PN protocol. * Pharmacy will follow and adjust PN orders on a daily basis. Thank you!
--- NOTE | 2023-12-11 11:23 | Pharmacy Report ---
Pharmacy Glycemic Short Note 2 - Date of Service December 11, 2023 - Glycemic Short BSG Results (Last 24 hours): 12/10/23 12/10/23 12/11/23 15:58 20:23 00:05 Glucose POC Glucose 110 H 167 H 173 H 12/11/23 12/11/23 12/11/23 03:57 05:26 07:10 Glucose 166 H POC Glucose 170 H 201 H OUTPATIENT ANTIDIABETIC REGIMEN: * Patient does not appear to be on any antidiabetic medications at home. * HbA1c: 6% (12/08/23) ASSESSMENT: 12/10: * Patient remains on SoluMedrol 80 mg IV TID, Azithromycin and Ceftriaxone. NPO but gets daily TPN which contains 101 g of Dextrose per day. This has been changed to infuse over 8 hours so there is a chance that dinner or HS BSGs may increase. Will trend. * BSGs yesterday were [phone] mg/dL. Overnight checks were 173 and 170 mg/dL. Patient received only 2 units of correctional insulin last evening. Has not had any basal insulin since admission. * BSG this AM was 201 mg/dL. Will continue with current goal range. Tightened correctional insulin this morning. No carb coverage but may add scheduled doses of Novolog tomorrow to cover dextrose in TPN should BSGs remain high. Could also consider adding insulin to TPN bag but hesitant to do so in the event of hypoglycemia. Will add 10 units of Lantus daily for now. 12/07: * 58-year-old female past medical history of protein calorie malnutrition on TPN, who presented to hospital with shortness of breath, found to have hypoxia and hypotension. * Patient had elevated BSGs yesterday. Contributing factors include stress from acute illness requiring pressors, hydrocortisone IV, and bicarb infusion ordered in dextrose containing fluids. Today BSGs have were acceptable at 136-143-151 mg/dL thus far. * Today the bicarb infusion will stop this evening (~1800). The steroids will begin to taper starting tomorrow. Per provider, TPN should resume today. * Given significant changes in care today, will conservatively manage BSGs with correctional insulin only through today and reassess in the morning. PLAN FOR INPATIENT GLYCEMIC CONTROL: * No insulin in TPN * Basal insulin * Lantus 10 units SC daily * Bolus insulin * NovoLog per scale q4h * Goal Range: Low 120 mg/dL - High 160 mg/dL * Correction Factor: 50 mg/dL/unit * no prandial insulin at his time
--- NOTE | 2023-12-11 12:16 | Hospitalist Progress Note ---
Date of Service December 11, 2023 Assessment & Plan (1) Protein calorie malnutrition: (2) History of nephrectomy: (3) Pneumonia: (4) Septic shock: (5) Acidosis: (6) Leukocytosis: (7) Acute hypoxemic respiratory failure: Plan Patient is a 58 year old female with PMHx significant for chronic malabsorption syndrome post bypass, severe protein calorie malnutrition on TPN, iron deficiency anemia, copper deficiency, h/o right nephrectomy in 2022, bipolar disorder, anxiety, depression, tobacco use, migraine headache, nonspecific white matter changes, myelopathy who presented to the ER with multiple medical complaints including SOB, dry mouth and speech changes. Septic Shock Pneumonia Complicated UTI Acute hypoxic respiratory Failure Upon arrival to ER patient noted to be hypotensive and hypoxic in the 70's. In ER afebrile, P: 94, R: 30, BP: 87/56, 78% on RA CTA Chest: No pulmonary embolus. Groundglass opacities compatible with pneumonia and/or aspiration. CT Head, CTA Head & neck: unremarkable WBC: 36.7. Lactate: 1.6, procalcitonin: 4.5 Was on 10L nonrebreather with O2 sat low 90's UA was suggestive of infection, urine culture grew E coli and Klebsiella Blood Cx x2 sets NGTD Fungal Cx NGTD Drug screen negative Suspect sepsis secondary to pneumonia, UTI. In ER given meropenem, vancomycin, 2 L NSS Was admitted to the ICU, Was on Cefepime (transitioned to rocephin) and Caspofungin Also on pressors for BP support as well as hydrocortisone. Pressors have since been weaned off Currently on hiFlo oxygen, wean as tolerated Continue to monitor Acute metabolic Encephalopathy Pt now confused Likely in setting of above. Delirium precautions. Frequent reorientation, avoid sedating medications Continue to monitor 12/10- urgent head CT ordered, no stroke but concern for demyelinating disease. MRI brain ordered wo contrast due to pt's ROBINSON/CKD, Neurology consulted, appreciate recs. Acute kidney injury Metabolic acidosis History of nephrectomy Cr: 2.2 on admission ABG pH of 7.21, HCO3 of 8, pCO2 of 19. AG of 9 at that time. Recent ROBINSON end of 10/2023 with Cr: 1.6 on 12/03 and 1.7 on 11/21. Prior baseline Cr: 1.0-1.2 IVF in ER. Did have CTA with contrast in ER Monitor renal function Nephrology consulted, appreciate recs -was on bicarb drip, since discontinued -Cr now at baseline Continue to monitor Bradycardia Episodes on 12/09 in setting of morphine d/c morphine, consider alternative nonnarcotic for pain management Continue to monitor on telemetry Acute on chronic Anemia Hgb below 7 on 12/08 Baseline of 7-8 required 2 physician consent as pt in acute delirium, family cannot be contacted Anemia panel Likely dilutional Continue to monitor H/H Protein calorie malnutrition Aspiration S/P bypass BMI: 14 On TPN 4 days a week at home Nutrition consult, speech consult Currently NPO due to aspiration TPN re-started on 12/07, currently on hold Depression with anxiety: History Bipolar disorder On home buspirone, duloxetine, olanzapine H/O migraine Denies current SMALLWOOD Tobacco use Smokes 1/2ppd Smoking cessation encouraged Diet: NPO, TPN on hold DVT Prophylaxis: Heparin SQ Admission and Anticipated Discharge Date Admission Date: December 06, 2023 Subjective Pt was seen in the AM down in the ICU. Nursing concerned about stroke with AMS, pt now only muttering a few words. On exam pt drowsy but responds to sternal rub with monosyllables Review of Systems Review of Systems: All systems reviewed & are unremarkable except as noted in Subjective Physical Exam Physical Exam: General: thin, frail Psych: calm mood and affect at time of exam HEENT: NC/AT CV: RRR Resp: no increased effort of breathing, NC in nares Abdomen: Soft Extremities: No edema in lower extremities bilaterally. Results & Data Results & Data Vital Signs (Past 12 Hours) Vital Signs Temp Pulse Pulse Resp BP BP BP 12/11/23 11:42 36.8 C 67 18 139/64 12/11/23 08:00 12/11/23 08:00 12/11/23 07:42 12/11/23 07:00 37.3 C 69 20 119/66 12/11/23 05:30 64 17 12/11/23 05:00 66 13 12/11/23 04:33 68 12 12/11/23 04:09 85 23 12/11/23 03:48 69 12 12/11/23 03:23 111/60 12/11/23 03:21 72 20 12/11/23 03:00 36.5 C 74 18 111/60 12/11/23 03:00 73 12 12/11/23 02:51 68 15 12/11/23 02:06 56 L 20 12/11/23 01:33 60 15 12/11/23 01:27 61 17 12/11/23 00:51 65 13 Pulse Ox O2 Del Method O2 Del Method O2 Flow Rate 12/11/23 11:42 Nasal Cannula 1 12/11/23 08:00 Nasal Cannula 5 12/11/23 08:00 Nasal Cannula 12/11/23 07:42 Nasal Cannula 12/11/23 07:00 90 Nasal Cannula 5 12/11/23 05:30 12/11/23 05:00 12/11/23 04:33 12/11/23 04:09 12/11/23 03:48 12/11/23 03:23 12/11/23 03:21 12/11/23 03:00 95 Nasal Cannula 2 12/11/23 03:00 12/11/23 02:51 12/11/23 02:06 12/11/23 01:33 12/11/23 01:27 12/11/23 00:51
--- NOTE | 2023-12-11 12:40 | Neurology Consultation ---
Date of Consultation December 11, 2023 Assessment & Plan (1) AMS (altered mental status): Altered mental status in the setting of septic shock, malnutrition on TPN. Apparently symmetric structural changes on CT head are concerning for etiologies such as atypical PRES vs nutritional causes. The differential however, remains broad. Stroke is less likely as exam is no longer focal and prior CTAs done this admission were unremarkable. Last known well is otherwise unknown. -- MRI brain with and without contrast -- Consider further workup including EEG/LP depending on results of the MRI -- If PRES, it is likely to improve with further supportive care. -- We will follow Telehealth Consultation Telehealth Information Telehealth Information: I performed this visit using a real-time telehealth connection between my location and the patients location ([facility]). After connecting through interactive tele-video, patient was identified by name and date of and/or wristband check.Patient (or authorized healthcare traveling representative) was informed that this was a telemedicine visit and it was being conducted confidentially over secure lines. My office door was closed and no one else was present in the room with me.Patient (or authorized healthcare traveling representative) provided consent to proceed with the visit, expressed an understanding of privacy and security of the telemedicine visit, and gave permission to have a hospital traveling representative in the room in order to assist with the visit and to conduct portions of the visit, as needed. I informed the patient (or authorized healthcare traveling representative) that I reviewed their record and presented the opportunity for them to ask any questions regarding the visit today. The patient agreed to participate. History of Present Illness Reason for Consultation: Altered mental status Requesting Physician: Dr. Mayfield Attending Physician: Lea Mayfield MD History of Present Illness Chandrika Hogue is a 58 yo F admitted to [facility] for the past 5 days with altered mental status, malnutrition on TPN and respiratory failure in the setting of septic shock. Yesterday the patient was combative and able to speak and be redirected. Per nusing today she had a L gaze preference transiently and was unable to otherwise respond verbally beyond "sorry" and "no". The patient otherwise is unable to contribute to the history. Of note CT head reveals extensive white matter changes that have progressed symmetrically since the last MRI. No witnessed seizure activity, no hx of seizures per chart review. Allergies Allergy/AdvReac Type Severity Reaction Status Date / Time amoxicillin Allergy Severe Anaphylaxis Verified 12/06/23 15:52 Penicillins Allergy Severe Anaphylaxis Verified 12/06/23 15:52 Sulfa (Sulfonamide Allergy Severe Anaphylaxis Verified 12/05/22 15:37 Antibiotics) ragweed pollen Allergy Intermediate swelling Verified 12/05/22 15:37 aspirin AdvReac Unknown No an Verified 12/05/22 15:37 allergy- cannot take post-bypass surgery Home Medications Medication Instructions Recorded Confirmed Type ergocalciferol (vitamin D2) 1,250 50,000 unit PO MOWEFR #0 caps 11/26/13 12/06/23 History mcg (50,000 unit) capsule cyanocobalamin (vitamin B-12) 1 dose IM MONTHLY ##0 06/11/14 12/06/23 History 1,000 mcg/mL injection solution diphenoxylate-atropine 2.5 1 tab PO QID PRN Diarrhea #0 tabs 08/02/16 12/06/23 History mg-0.025 mg tablet (Lomotil) rizatriptan 10 mg tablet 10 mg PO DAILY PRN Migraines 11/06/18 12/06/23 History alprazolam 0.25 mg tablet 0.25 mg PO HS PRN Anxiety 06/28/19 12/06/23 History vrwywfnkjp-wnmyafwwippxu-tekddqzg 1 tab PO Q6H PRN Pain 06/28/19 12/06/23 History 50 mg-325 mg-40 mg tablet acetaminophen 500 mg tablet 500 mg PO Q4H PRN Pain 08/23/20 12/06/23 History calcitriol 0.25 mcg capsule 0.25 mcg PO 3XWK 12/05/22 12/06/23 History calcium carbonate (Oyster Shell 500 mg PO BID 12/05/22 12/06/23 History Calcium 500) duloxetine 60 mg capsule,delayed 120 mg PO DAILY 12/05/22 12/06/23 History release mirtazapine 45 mg tablet 45 mg PO HS 12/05/22 12/06/23 History omeprazole 20 mg capsule,delayed 20 mg PO QAM 12/05/22 12/06/23 History release ondansetron 4 mg disintegrating 4 mg PO Q8H PRN NAUSEA/VOMITING 12/05/22 12/06/23 History tablet promethazine 25 mg tablet 25 mg PO Q6H PRN NAUSEA/VOMITING 12/05/22 12/06/23 History sumatriptan succinate 50 mg tablet 50 mg PO DIRECTED PRN ATTACKS 12/05/22 12/06/23 History PER [facility] tramadol 50 mg tablet 50 mg PO Q8H PRN Pain 12/05/22 12/06/23 History buspirone 5 mg tablet 5 mg PO BID 12/06/23 12/06/23 History olanzapine 5 mg disintegrating 5 mg translingual DAILY 12/06/23 12/06/23 History tablet pregabalin 25 mg capsule 25 mg PO BID 12/06/23 12/06/23 History Patient History Medical History Weight loss, unintentional Poor appetite at times Nausea at times Kidney stones Zinc poisoning Surgical History History of lithotripsy History of esophagogastroduodenoscopy (EGD) History of colonoscopy History of cystoscopy with stent placement 08/2020 Hx of cardiac cath jul 01 2019. no stents Family History Mother Coronary heart disease Other No family history of adverse response to anesthesia Social History Smoking Status: Current every day smoker Tobacco Type: Cigarettes packs per day: 1; Cigarettes Per Day: 8-10/day; Second Hand Exposure: No; Do You Dip or Chew Tobacco: No; Hx Alcohol Use: Yes Alcohol type: hard liquor Hx Substance Use: Yes Last Used Substance: Days (ago) Last Used Substance Other:: 12/04/2023 Preferred Language: Angolan Communication Ability: Effective Visual Impairment: No Limitations Hearing Ability: Normal Putty Tinter Maker Required: No Beliefs That Will Affect Care: None marital status: Current Living Situation: Spouse current occupational status: employed and disabled 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 Results & Data Vital Signs (Past 12 Hours) Vital Signs Temp Pulse Pulse Resp BP BP BP 12/11/23 11:42 36.8 C 67 18 139/64 12/11/23 08:00 12/11/23 08:00 12/11/23 07:42 12/11/23 07:00 37.3 C 69 20 119/66 12/11/23 05:30 64 17 12/11/23 05:00 66 13 12/11/23 04:33 68 12 12/11/23 04:09 85 23 12/11/23 03:48 69 12 12/11/23 03:23 111/60 12/11/23 03:21 72 20 12/11/23 03:00 36.5 C 74 18 111/60 12/11/23 03:00 73 12 12/11/23 02:51 68 15 12/11/23 02:06 56 L 20 12/11/23 01:33 60 15 12/11/23 01:27 61 17 12/11/23 00:51 65 13 Pulse Ox O2 Del Method O2 Del Method O2 Flow Rate 12/11/23 11:42 Nasal Cannula 1 12/11/23 08:00 Nasal Cannula 5 12/11/23 08:00 Nasal Cannula 12/11/23 07:42 Nasal Cannula 12/11/23 07:00 90 Nasal Cannula 5 12/11/23 05:30 12/11/23 05:00 12/11/23 04:33 12/11/23 04:09 12/11/23 03:48 12/11/23 03:23 12/11/23 03:21 12/11/23 03:00 95 Nasal Cannula 2 12/11/23 03:00 12/11/23 02:51 12/11/23 02:06 12/11/23 01:33 12/11/23 01:27 12/11/23 00:51 Laboratory Results Abnormal lab results 12/10/23 12/10/23 12/11/23 Range/Units 15:58 20:23 00:05 WBC (4.8-10.8) K/ul RBC (4.20-5.40) M/uL Hgb (12.0-16.0) g/dl Hct (37.0-47.0) % RDW Std Deviation (36.4-46.3) fL RDW Coeff of Mike (11.5-14.5) % MPV (9.4-12.4) fL Neut # (Auto) (1.40-6.50) K/uL Immature Gran # (Auto) (0.01-0.20) K/uL Absolute Nucleated RBC (0.00-0.12) K/uL Chloride (98-107) mmol/L BUN (6-23) mg/dl Creatinine (0.6-1.2) mg/dl BUN/Creatinine Ratio (10-20) Glucose (70-99(Fasting)) mg/dl POC Glucose 110 H 167 H 173 H (70-99) mg/dl Calcium (8.6-10.3) mg/dl Triglycerides (0-150) mg/dl 12/11/23 12/11/23 12/11/23 Range/Units 03:57 05:26 07:10 WBC 18.47 H (4.8-10.8) K/ul RBC 3.02 L (4.20-5.40) M/uL Hgb 8.7 L (12.0-16.0) g/dl Hct 26.8 L (37.0-47.0) % RDW Std Deviation 53.6 H (36.4-46.3) fL RDW Coeff of Mike 16.9 H (11.5-14.5) % MPV 13.1 H (9.4-12.4) fL Neut # (Auto) 15.84 H (1.40-6.50) K/uL Immature Gran # (Auto) 0.74 H (0.01-0.20) K/uL Absolute Nucleated RBC 0.15 H (0.00-0.12) K/uL Chloride 109 H (98-107) mmol/L BUN 40 H (6-23) mg/dl Creatinine 1.35 H (0.6-1.2) mg/dl BUN/Creatinine Ratio 29.6 H (10-20) Glucose 166 H (70-99(Fasting)) mg/dl POC Glucose 170 H 201 H (70-99) mg/dl Calcium 8.3 L (8.6-10.3) mg/dl Triglycerides 240 H (0-150) mg/dl 12/11/23 Range/Units 11:31 WBC (4.8-10.8) K/ul RBC (4.20-5.40) M/uL Hgb (12.0-16.0) g/dl Hct (37.0-47.0) % RDW Std Deviation (36.4-46.3) fL RDW Coeff of Mike (11.5-14.5) % MPV (9.4-12.4) fL Neut # (Auto) (1.40-6.50) K/uL Immature Gran # (Auto) (0.01-0.20) K/uL Absolute Nucleated RBC (0.00-0.12) K/uL Chloride (98-107) mmol/L BUN (6-23) mg/dl Creatinine (0.6-1.2) mg/dl BUN/Creatinine Ratio (10-20) Glucose (70-99(Fasting)) mg/dl POC Glucose 173 H (70-99) mg/dl Calcium (8.6-10.3) mg/dl Triglycerides (0-150) mg/dl Diagnostic Findings CT head - significant symmetric white matter changes.
[2023-12-11] MEDS: CENTRAL TPN IV SCH (15:40)
[2023-12-11] MEDS: [UNRECOGNIZED DRUG - OTHER] IV SCH (15:40)
--- NOTE | 2023-12-11 21:36 | XRay Report ---
KUB CLINICAL HISTORY: MRI clearance. FINDINGS: 2 AP, portable, supine abdominal radiographs are compared to abdominal radiographs and CT d ated 09/06/2021. There is a nonobstructed abdominal bowel gas pattern. Suture material and an indeterm inant stent project over the left upper quadrant. Cholecystectomy clips are noted. Surgical clips als o project over the right groin. No evidence of intraperitoneal free air is seen. There are no abnorma l abdominal calcifications. Phleboliths are seen in the pelvis. The skeletal structures are osteopeni c and appear intact. There is degenerative change and scoliosis in the spine. IMPRESSION: 1. Postsurgical change as above and an indeterminant bowel stent project over the left upper quadrant . 2. No additional radiodense foreign body is seen. 3. No bowel obstruction. Electronically signed by: Jensen Guillaume M.D. 12/11/2023 9:35 PM
[2023-12-12] MEDS: [UNRECOGNIZED DRUG - REMARK] SCH (00:24)
--- NOTE | 2023-12-12 06:57 | XRay Report ---
XR chest 1V portable HISTORY: 58 years-old Female resp failure acute respiratory failure COMPARISON: 12/10/2023 TECHNIQUE: AP view of the chest FINDINGS: Sigmoidal thoracolumbar scoliosis redemonstrated. Left IJ catheter distal tip terminates in the SVC. Mild cardiomegaly. No pneumothorax or pleural effusion. Extensive intermixed interstitial and alveola r opacities are redemonstrated and overall appear stable to mildly improved. Bones appear grossly int act. Surgical device within the stomach. Right upper quadrant surgical clips. IMPRESSION: Persistent extensive intermixed interstitial and alveolar opacities have mildly improved. ACT 112: Negative or not required by law. The above report was generated using voice recognition software. It may contain grammatical, syntax o r spelling errors. Electronically signed by: Maikel Lafleur M.D. 12/12/2023 6:55 AM
[2023-12-12 08:25] LABS: Basophils # (auto) 0.04 K/uL (0.00-0.20); Basophils % (auto) 0.2 %; Hematocrit (blood only) 29.9 % (37.0-47.0); Hemoglobin 9.5 g/dl (12.0-16.0); Immature Granulocytes # (auto) 0.82 K/uL (0.01-0.20); Immature Granulocytes % (auto) 3.6 %; Lymphocytes # (auto) 1.76 K/uL (1.20-3.40); Lymphocytes % (auto) 7.7 %; Mean Corpuscular Hemoglobin 28.7 pg (25.0-34.0); Mean Corpuscular Hgb Conc 31.8 g/dL (32.0-36.0); Mean Corpuscular Volume 90.3 fL (80.0-100.0); Mean Platelet Volume 13.3 fL (9.4-12.4); Monocytes # (auto) 0.87 K/uL (0.11-0.59); Monocytes % (auto) 3.8 %; Neutrophils # (auto) 19.39 K/uL (1.40-6.50); Neutrophils % (auto) 84.7 %; Nucleated RBC # (auto) 0.13 K/uL (0.00-0.12); Nucleated RBC % (auto) 0.6 %; Platelet Count 194 K/uL (130-400); RDW Coefficient of Variation 17.5 % (11.5-14.5); RDW Standard Deviation 53.7 fL (36.4-46.3); Red Blood Count 3.31 M/uL (4.20-5.40); White Blood Count 22.88 K/ul (4.8-10.8)
[2023-12-12] MEDS: LANTUS PER UNIT CHARGE SC SCH (08:42)
[2023-12-12 08:44] LABS: Albumin Globulin Ratio 1.2 (0.9-2); BUN Creatinine Ratio 58.1 (10-20); Bilirubin,Total 0.5 mg/dl (0.2-1.0); Calcium 8.5 mg/dl (8.6-10.3); Creatinine Clr Calc Pharmacy 37.8 ml/min; Est GFR (African American) 66.9 ml/min; Est GFR (Non-African American) 57.7 ml/min; Globulin 2.6 gm/dl (2.5-4.0); Phosphorus 2.8 mg/dl (2.5-4.9); Potassium 4.4 mmol/L (3.5-5.1); Total Protein 5.6 gm/dl (6.0-8.3)
[2023-12-12] MEDS ORDERED: LANTUS PER UNIT CHARGE SC SCH (09:00)
--- NOTE | 2023-12-12 10:23 | Pharmacy Report ---
Pharmacy Glycemic Short Note 2 - Date of Service December 12, 2023 - Glycemic Short BSG Results (Last 24 hours): 12/11/23 12/11/23 12/11/23 11:31 16:42 21:40 Glucose POC Glucose 173 H 238 H 257 H 12/12/23 12/12/23 12/12/23 00:22 04:06 07:25 Glucose POC Glucose 252 H 217 H 133 H 12/12/23 07:38 Glucose 137 H POC Glucose OUTPATIENT ANTIDIABETIC REGIMEN: * Patient does not appear to be on any antidiabetic medications at home. * HbA1c: 6% (12/08/23) ASSESSMENT: 12/11: * Chandrika received 22 units of insulin yesterday, 10 basal + 12 bolus. BSGs were [phone] mg/dL. * Remains on TPN with 101 g of dextrose, SoluMedrol 80 mg IV TID, Azithromycin and Ceftriaxone. * Fasting BSG was 133 mg/dL this AM. Will continue with 10 units of basal per day. Believe yesterday's "fasting" was falsely elevated secondary to TPN being ran over 24 hours. Now that TPN infuses over 8 hours, believe this is a more true representation of fasting BSG. * Given no real improvement in BSGs following correctional administration yesterday, will tighten correction factor significantly today. Also, given 101 g of dextrose in the TPN, will elect to add 10 units of insulin to the bag today. 12/10: * Patient remains on SoluMedrol 80 mg IV TID, Azithromycin and Ceftriaxone. NPO but gets daily TPN which contains 101 g of Dextrose per day. This has been changed to infuse over 8 hours so there is a chance that dinner or HS BSGs may increase. Will trend. * BSGs yesterday were [phone] mg/dL. Overnight checks were 173 and 170 mg/dL. Patient received only 2 units of correctional insulin last evening. Has not had any basal insulin since admission. * BSG this AM was 201 mg/dL. Will continue with current goal range. Tightened correctional insulin this morning. No carb coverage but may add scheduled doses of Novolog tomorrow to cover dextrose in TPN should BSGs remain high. Could also consider adding insulin to TPN bag but hesitant to do so in the event of hypoglycemia. Will add 10 units of Lantus daily for now. 12/07: * 58-year-old female past medical history of protein calorie malnutrition on TPN, who presented to hospital with shortness of breath, found to have hypoxia and hypotension. * Patient had elevated BSGs yesterday. Contributing factors include stress from acute illness requiring pressors, hydrocortisone IV, and bicarb infusion ordered in dextrose containing fluids. Today BSGs have were acceptable at 136-143-151 mg/dL thus far. * Today the bicarb infusion will stop this evening (~1800). The steroids will begin to taper starting tomorrow. Per provider, TPN should resume today. * Given significant changes in care today, will conservatively manage BSGs with correctional insulin only through today and reassess in the morning. PLAN FOR INPATIENT GLYCEMIC CONTROL: * TPN bag * 10 units * Basal insulin * Lantus 10 units SC daily * Bolus insulin * NovoLog per scale q4h * Goal Range: Low 110 mg/dL - High 140 mg/dL * Correction Factor: 20 mg/dL/unit * no prandial insulin at his time
--- NOTE | 2023-12-12 15:11 | Pulmonology Progress Note ---
Date of Service December 12, 2023 Assessment & Plan (1) Acute hypoxemic respiratory failure: (2) Abnormal CT scan of lung: Plan Impression: 58-year-old female with severe malnutrition on outpatient TPN as well as bipolar with diffuse pulmonary infiltrates and hypoxemic respiratory failure. She has been initiated on empiric steroids as she was too unstable to consider bronchoscopy. Her oxygen requirement significantly resolved. Recommendations: 1. Diffuse pulmonary infiltrates: Etiology unclear. Treated empirically with methylprednisolone 80 mg 3 times daily for possible alveolar hemorrhage as well as inflammatory etiologies.. Patient is day 6 antibiotics (3 days cefepime, 2 days of Rocephin, 1 day meropenemreceived 3 days antifungal therapy is currently day 3 azithromycin). Continue antibiotics and steroids for now. Her x-ray is improved and her oxygen requirement is better. Would recommend continue diuretics and will transition her to prednisone 40 mg a day with plans to taper off over 2 to 3 weeks. I am not convinced that she has a pulmonary infection and from a pulmonary perspective, antibiotics can likely be discontinued. 2. Hypoxemic respiratory failure: Significantly improved currently. Continue to wean oxygen as tolerated. Patient would benefit from pulmonary toilet mental status allows. 3. Prognosis significantly guarded at this point in time given the patient's frail current state. Will follow intermittently. Please contact us with pulmonary questions or concerns Admission and Anticipated Discharge Date Admission Date: December 06, 2023 Subjective Patient seen and examined. EMR reviewed. The patient is more alert today but not very interactive. Her oxygen requirement is decreased significantly. Nursing does not report any issues Review of Systems 2 Review of Systems: Unobtainable due to reduced consciousness Physical Exam 2 Physical Exam: General: thin, frail Psych: Obtunded HEENT: NC/AT CV: RRR, Normal s1, s2. No murmurs appreciated Resp: no increased effort of breathing Abdomen: Soft Extremities: No edema in lower extremities bilaterally. Results & Data Results & Data Vital Signs (Past 12 Hours) Vital Signs Temp Pulse Pulse Resp BP Pulse Ox O2 Del Method 12/12/23 11:12 36.6 C 59 L 18 132/70 99 Room Air 12/12/23 10:00 Nasal Cannula 12/12/23 08:00 61 12/12/23 06:55 36.5 C 53 L 16 154/76 H 95 Nasal Cannula O2 Flow Rate 12/12/23 11:12 12/12/23 10:00 2 06/18/24 08:00 12/12/23 06:55 2 Laboratory Results 12/12/23 07:38 12/12/23 07:38 Diagnostic Findings Chest x-ray from today was independently reviewed. It demonstrates improved aeration of the lungs bilaterally. There is some persistent faint airspace opacity bilaterally. PG Care Time/CCT Total # of Minutes Spent Total Time Spent with Patient: Total time spent is greater than 50% in coordination of care (as documented) at patient's floor/unit and/or counseling patient: Coding Level of Care Code 08756 SUB INP/OBS CARE 2/35MIN Diagnoses Acute hypoxemic respiratory failure J96.[address] scan of lung R91.8
--- NOTE | 2023-12-12 15:40 | Hospitalist Progress Note ---
Date of Service December 12, 2023 Assessment & Plan (1) Protein calorie malnutrition: (2) History of nephrectomy: (3) Pneumonia: (4) Septic shock: (5) Acidosis: (6) Leukocytosis: (7) Acute hypoxemic respiratory failure: Plan Patient is a 58 year old female with PMHx significant for chronic malabsorption syndrome post bypass, severe protein calorie malnutrition on TPN, iron deficiency anemia, copper deficiency, h/o right nephrectomy in 2022, bipolar disorder, anxiety, depression, tobacco use, migraine headache, nonspecific white matter changes, myelopathy who presented to the ER with multiple medical complaints including SOB, dry mouth and speech changes. Septic Shock Pneumonia Complicated UTI Acute hypoxic respiratory Failure Upon arrival to ER patient noted to be hypotensive and hypoxic in the 70's. In ER afebrile, P: 94, R: 30, BP: 87/56, 78% on RA CTA Chest: No pulmonary embolus. Groundglass opacities compatible with pneumonia and/or aspiration. CT Head, CTA Head & neck: unremarkable WBC: 36.7. Lactate: 1.6, procalcitonin: 4.5 Was on 10L nonrebreather with O2 sat low 90's UA was suggestive of infection, urine culture grew E coli and Klebsiella Blood Cx x2 sets NGTD Fungal Cx NGTD Drug screen negative Suspect sepsis secondary to pneumonia, UTI. In ER given meropenem, vancomycin, 2 L NSS Was admitted to the ICU, Was on Cefepime (transitioned to rocephin) and azithromycin and Caspofungin. Caspofungin d/c Also on pressors for BP support as well as hydrocortisone. Pressors have since been weaned off, off steroids, on po prednisone Was on hiFlo oxygen, wean as tolerated Pulmonology consulted, appreciate recs Continue to monitor Acute metabolic Encephalopathy Pt now confused Likely in setting of above. Delirium precautions. Frequent reorientation, avoid sedating medications Continue to monitor 12/10- urgent head CT ordered, no stroke but concern for demyelinating disease. MRI brain ordered wo contrast due to pt's ROBINSON/CKD, Neurology consulted, appreciate recs. 12/11- pt with noted stent on KUB, cannot be cleared for MRI. Discussed with Neurology Dr Chaney who states that the MRI is needed and should either discuss comfort measures/palliative care with family or have pt transferred for further neurological evaluation. Per nursing, a family member will be coming in later today and pt's case and status will be discussed then. Acute kidney injury Metabolic acidosis History of nephrectomy Cr: 2.2 on admission ABG pH of 7.21, HCO3 of 8, pCO2 of 19. AG of 9 at that time. Recent ROBINSON end of 10/2023 with Cr: 1.6 on 12/03 and 1.7 on 11/21. Prior baseline Cr: 1.0-1.2 IVF in ER. Did have CTA with contrast in ER Monitor renal function Nephrology consulted, appreciate recs -was on bicarb drip, since discontinued -Cr now at baseline Continue to monitor Bradycardia Episodes on 12/09 in setting of morphine d/c morphine, consider alternative nonnarcotic for pain management Continue to monitor on telemetry Stable/resolved at this time Acute on chronic Anemia Hgb below 7 on 12/08 Baseline of 7-8 required 2 physician consent as pt in acute delirium, family cannot be contacted Anemia panel Likely dilutional Continue to monitor H/H Protein calorie malnutrition Aspiration S/P bypass BMI: 14 On TPN 4 days a week at home Nutrition consult, speech consult Currently NPO due to aspiration TPN re-started on 12/07 Has been restarted Depression with anxiety: History Bipolar disorder On home buspirone, duloxetine, olanzapine H/O migraine Denies current SMALLWOOD Tobacco use Smokes 1/2ppd Smoking cessation encouraged Diet: NPO, TPN has been restarted DVT Prophylaxis: Heparin SQ Admission and Anticipated Discharge Date Admission Date: December 06, 2023 Subjective pt was seen laying in bed. Arousable, speaking one word sentences Per nursing, someone called in for pt and stated that they would be by to see her Review of Systems Review of Systems: All systems reviewed & are unremarkable except as noted in Subjective Physical Exam Physical Exam: General: thin, frail Psych: calm mood and affect at time of exam HEENT: NC/AT CV: RRR Resp: no increased effort of breathing, NC in nares Abdomen: Soft Extremities: No edema in lower extremities bilaterally. Results & Data Results & Data Vital Signs (Past 12 Hours) Vital Signs Temp Pulse Pulse Resp BP Pulse Ox O2 Del Method 12/12/23 15:19 36.8 C 62 18 138/83 99 Nasal Cannula 12/12/23 11:12 36.6 C 59 L 18 132/70 99 Room Air 12/12/23 10:00 Nasal Cannula 12/12/23 08:00 61 12/12/23 06:55 36.5 C 53 L 16 154/76 H 95 Nasal Cannula O2 Flow Rate 12/12/23 15:19 2 12/12/23 11:12 12/12/23 10:00 2 12/12/23 08:00 12/12/23 06:55 2
[2023-12-12] MEDS: CENTRAL TPN IV SCH (15:57)
[2023-12-12] MEDS: [UNRECOGNIZED DRUG - OTHER] IV SCH (15:57)
[2023-12-12] MEDS ORDERED: CENTRAL TPN IV SCH (16:00)
[2023-12-12] MEDS ORDERED: [UNRECOGNIZED DRUG - OTHER] IV SCH (16:00)
[2023-12-12] MEDS ORDERED: methylPREDNISolone 1000 MG/16 ML IV SCH (16:30)
[2023-12-12] MEDS ORDERED: methylPREDNISolone 125 MG/2 ML VIAL IV SCH (17:00)
[2023-12-12] MEDS: methylPREDNISolone 40 MG in SYRINGE 0 ML IV SCH (17:30)
[2023-12-13 07:21] LABS: Basophils # (auto) 0.04 K/uL (0.00-0.20); Basophils % (auto) 0.2 %; Hematocrit (blood only) 26.7 % (37.0-47.0); Hemoglobin 8.3 g/dl (12.0-16.0); Immature Granulocytes % (auto) 4.3 %; Lymphocytes # (auto) 2.14 K/uL (1.20-3.40); Lymphocytes % (auto) 9.2 %; Mean Corpuscular Hemoglobin 28.8 pg (25.0-34.0); Mean Corpuscular Hgb Conc 31.1 g/dL (32.0-36.0); Mean Corpuscular Volume 92.7 fL (80.0-100.0); Mean Platelet Volume 13.5 fL (9.4-12.4); Monocytes # (auto) 1.19 K/uL (0.11-0.59); Monocytes % (auto) 5.1 %; Neutrophils # (auto) 18.83 K/uL (1.40-6.50); Neutrophils % (auto) 81.2 %; Nucleated RBC # (auto) 0.07 K/uL (0.00-0.12); Nucleated RBC % (auto) 0.3 %; Platelet Count 176 K/uL (130-400); RDW Coefficient of Variation 17.7 % (11.5-14.5); Red Blood Count 2.88 M/uL (4.20-5.40)
[2023-12-13 07:35] LABS: Albumin Globulin Ratio 1.1 (0.9-2); Albumin Level 2.8 gm/dl (3.4-5.0); BUN Creatinine Ratio 77.8 (10-20); Bilirubin,Total 0.4 mg/dl (0.2-1.0); Calcium 8.2 mg/dl (8.6-10.3); Creatinine Clr Calc Pharmacy 43.3 ml/min; Est GFR (African American) 80.5 ml/min; Est GFR (Non-African American) 69.5 ml/min; Globulin 2.5 gm/dl (2.5-4.0); Magnesium 1.8 mg/dl (1.7-2.4); Phosphorus 2.9 mg/dl (2.5-4.9); Potassium 4.4 mmol/L (3.5-5.1); Total Protein 5.3 gm/dl (6.0-8.3)
[2023-12-13] MEDS ORDERED: predniSONE 20 MG TAB PO SCH (09:00)
--- NOTE | 2023-12-13 10:14 | Pulmonology Progress Note ---
Date of Service December 13, 2023 Assessment & Plan (1) Acute hypoxemic respiratory failure: (2) Abnormal CT scan of lung: Plan Impression: 58-year-old female with severe malnutrition on outpatient TPN as well as bipolar with diffuse pulmonary infiltrates and hypoxemic respiratory failure. She has been initiated on empiric steroids as she was too unstable to consider bronchoscopy. Her oxygen requirement significantly improved. Recommendations: 1. Diffuse pulmonary infiltrates: Etiology unclear. Treated empirically with methylprednisolone 80 mg 3 times daily for possible alveolar hemorrhage as well as inflammatory etiologies.. Patient is day 7 antibiotics (3 days cefepime, 2 days of Rocephin, 1 day meropenemreceived 3 days antifungal therapy is currently day 4 azithromycin). Defer additional antibiotics to the primary service but at this point in time I think antibiotics can be discontinued from the lung standpoint after she completes 5 days of azithromycin. Her x-ray is improved and her oxygen requirement is better. Would recommend continue diuretics recommended transitioning to prednisone however the patient cannot take p.o. reliably so we will continue Solu-Medrol and taper slowly as tolerated. 2. Hypoxemic respiratory failure: Significantly improved currently. Continue to wean oxygen as tolerated. Patient would benefit from pulmonary toilet mental status allows. 3. Prognosis significantly guarded at this point in time given the patient's frail current state. Will follow intermittently. Please contact us with pulmonary questions or concerns Admission and Anticipated Discharge Date Admission Date: December 06, 2023 Subjective Patient seen and examined. EMR reviewed. At this point in time patient is more awake alert and conversant but does perseverate somewhat. She denies any respiratory difficulty. She is on a minimal amount of oxygen, Review of Systems 2 Review of Systems: All systems reviewed & are unremarkable except as noted in Subjective Physical Exam 2 Physical Exam: General: thin, frail Psych: Obtunded HEENT: NC/AT CV: RRR, Normal s1, s2. No murmurs appreciated Resp: no increased effort of breathing Abdomen: Soft Extremities: No edema in lower extremities bilaterally. Results & Data Results & Data Vital Signs (Past 12 Hours) Vital Signs Temp Pulse Pulse Resp BP BP Pulse Ox 12/13/23 08:25 12/13/23 08:00 12/13/23 07:20 36.4 C L 58 L 18 133/70 99 12/13/23 03:05 36.7 C 69 15 150/88 H 96 12/13/23 00:00 57 L 12/12/23 22:41 36.8 C 55 L 18 137/72 94 O2 Del Method O2 Del Method O2 Flow Rate O2 Flow Rate 12/13/23 08:25 Nasal Cannula 2 12/13/23 08:00 Nasal Cannula 2 12/13/23 07:20 Nasal Cannula 2 12/13/23 03:05 Nasal Cannula 2 12/13/23 00:00 12/12/23 22:41 Nasal Cannula Laboratory Results 12/13/23 06:29 12/13/23 06:29 PG Care Time/CCT Total # of Minutes Spent Total Time Spent with Patient: Total time spent is greater than 50% in coordination of care (as documented) at patient's floor/unit and/or counseling patient: Coding Level of Care Code 46204 SUB INP/OBS CARE 2/35MIN Diagnoses Acute hypoxemic respiratory failure J96.[address] scan of lung R91.8
--- NOTE | 2023-12-13 12:48 | Palliative Care Consultation ---
Date of Consultation December 13, 2023 Assessment & Plan (1) Weakness generalized: (2) Dyspnea and respiratory abnormalities: (3) AMS (altered mental status): (4) Cachexia: (5) Advanced care planning/counseling discussion: (6) Palliative care by specialist: Plan No meaningful discussion posable with pt ?hypoactive delirium vs atypical dementia vs another neurologic process Suggest a family meeting with relevant specialists for a multidisciplinary discussion Thank you for allowing us to participate in the ongoing care of this patient. Please page with any additional concerns. Monse Cano DNP Director, Palliative Medicine History of Present Illness Attending Physician: Yifan Redman MD History of Present Illness Patient is 58 year old female presenting with altered mental status, dyspnea, friend was worried about stroke. She does not use any supplemental oxygen at home. She has subclavian access in her left chest and she reports this is for TPN d/t chronic malabsorption following gastric bypass. Admitted for PNA/hypoxemic respiratory failure, septic shock/metab encephalopathy, +[facility] Pulmonary data reviewed. Imaging demonstrates diffuse pulmonary infiltrates of an unclear etiology. She has been treated with methylprednisolone 80 mg 3 times daily for possible alveolar hemorrhage/?inflammatory etiologies along with btx (incl meropenem, cefepime, azithro and rocephin.) CXR looks better and oxygen needs decreased however she has an overall guarded prognosis due to generalized frailty. Mental status has been waxing and waning PMH: chronic malabsorption syndrome post bypass, severe protein calorie malnutrition on TPN, iron deficiency anemia, copper deficiency, h/o right nephrectomy in 2022, bipolar disorder, anxiety, depression, tobacco use, migraine headache, nonspecific white matter changes, myelopathy She came to [facility] ER with + SOB, dry mouth and speech changes. Upon arrival, was found to be hypotensive and hypoxic in 70's. Her BP improved to 90s systolic after fluid resuscitation. Patient given 2L NS in ER. Empirically started on IV vancomycin. Patient's sepsis fluid volume resuscitation based on ideal body weight is 1568.1 mL. The [facility] panel negative CT head wo contrast negative for acute pathology CTA head/neck negative for acute pathology. CTA chest negative for PE. Noted to have groundglass opacities concerning for possible pneumonia, per radiology. On admission, she denied chest pain. No past hx DVT or PE, lightheadedness or dizziness. At the time of my visit, she is somewhat somnolent and does not verbally interact. She will open her eyes to verbal as well as when her name is called. She will slightly track movement around the room. But she is otherwise unable to follow commands, communicate by yes or no, or answer with a thumbs up or down outside. No HPI could be obtained. Allergies Allergy/AdvReac Type Severity Reaction Status Date / Time amoxicillin Allergy Severe Anaphylaxis Verified 12/06/23 15:52 Penicillins Allergy Severe Anaphylaxis Verified 12/06/23 15:52 Sulfa (Sulfonamide Allergy Severe Anaphylaxis Verified 12/05/22 15:37 Antibiotics) ragweed pollen Allergy Intermediate swelling Verified 12/05/22 15:37 aspirin AdvReac Unknown No an Verified 12/05/22 15:37 allergy- cannot take post-bypass surgery Home Medications Medication Instructions Recorded Confirmed Type ergocalciferol (vitamin D2) 1,250 50,000 unit PO MOWEFR #0 caps 11/26/13 12/06/23 History mcg (50,000 unit) capsule cyanocobalamin (vitamin B-12) 1 dose IM MONTHLY ##0 06/11/14 12/06/23 History 1,000 mcg/mL injection solution diphenoxylate-atropine 2.5 1 tab PO QID PRN Diarrhea #0 tabs 08/02/16 12/06/23 History mg-0.025 mg tablet (Lomotil) rizatriptan 10 mg tablet 10 mg PO DAILY PRN Migraines 11/06/18 12/06/23 History alprazolam 0.25 mg tablet 0.25 mg PO HS PRN Anxiety 06/28/19 12/06/23 History ahrwemkevo-kxonqvhbtnjlj-plqmtrrc 1 tab PO Q6H PRN Pain 06/28/19 12/06/23 History 50 mg-325 mg-40 mg tablet acetaminophen 500 mg tablet 500 mg PO Q4H PRN Pain 08/23/20 12/06/23 History calcitriol 0.25 mcg capsule 0.25 mcg PO 3XWK 12/05/22 12/06/23 History calcium carbonate (Oyster [place] 500 mg PO BID 12/05/22 12/06/23 History Calcium 500) duloxetine 60 mg capsule,delayed 120 mg PO DAILY 12/05/22 12/06/23 History release mirtazapine 45 mg tablet 45 mg PO HS 12/05/22 12/06/23 History omeprazole 20 mg capsule,delayed 20 mg PO QAM 12/05/22 12/06/23 History release ondansetron 4 mg disintegrating 4 mg PO Q8H PRN NAUSEA/VOMITING 12/05/22 12/06/23 History tablet promethazine 25 mg tablet 25 mg PO Q6H PRN NAUSEA/VOMITING 12/05/22 12/06/23 History sumatriptan succinate 50 mg tablet 50 mg PO DIRECTED PRN ATTACKS 12/05/22 12/06/23 History PER [facility] tramadol 50 mg tablet 50 mg PO Q8H PRN Pain 12/05/22 12/06/23 History buspirone 5 mg tablet 5 mg PO BID 12/06/23 12/06/23 History olanzapine 5 mg disintegrating 5 mg translingual DAILY 12/06/23 12/06/23 History tablet pregabalin 25 mg capsule 25 mg PO BID 12/06/23 12/06/23 History Patient History Medical History Weight loss, unintentional Poor appetite at times Nausea at times Kidney stones Zinc poisoning Surgical History History of lithotripsy History of esophagogastroduodenoscopy (EGD) History of colonoscopy History of cystoscopy with stent placement 08/2020 Hx of cardiac cath jul 01 2019. no stents Family History Mother Coronary heart disease Other No family history of adverse response to anesthesia Social History Smoking Status: Current every day smoker Tobacco Type: Cigarettes packs per day: 1; Cigarettes Per Day: 8-10/day; Second Hand Exposure: No; Do You Dip or Chew Tobacco: No; Hx Alcohol Use: Yes Alcohol type: hard liquor Hx Substance Use: Yes Last Used Substance: Days (ago) Last Used Substance Other:: 12/04/2023 Preferred Language: Gabonese Communication Ability: Effective Visual Impairment: No Limitations Hearing Ability: Normal [place] Stitcher Required: No Beliefs That Will Affect Care: None marital status: Current Living Situation: Spouse current occupational status: employed and disabled 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 PERRLA, no icteric sclera Neck supple, no stridor, no gross adenopathy Respiratory effort normal at rest, no use of accessory muscles, breath sounds diminished, few scattered rhonchi, no obvious wheezing S1-S2, no murmur appreciated Abdomen scaphoid, + bowel sounds Generalized weakness, deconditioned strength Muscle atrophy Skin pale, warm to touch Will open eyes to name, unable to follow commands otherwise. Results & Data Vital Signs (Past 12 Hours) Vital Signs Temp Pulse Resp BP BP Pulse Ox O2 Del Method 12/13/23 11:41 36.9 C 62 18 137/72 100 Nasal Cannula 12/13/23 08:25 Nasal Cannula 12/13/23 08:00 12/13/23 07:20 36.4 C L 58 L 18 133/70 99 Nasal Cannula 12/13/23 03:05 36.7 C 69 15 150/88 H 96 Nasal Cannula O2 Del Method O2 Flow Rate O2 Flow Rate 12/13/23 11:41 1 12/13/23 08:25 2 12/13/23 08:00 Nasal Cannula 2 12/13/23 07:20 2 12/13/23 03:05 2 Laboratory Results Most recent lab results ABG pH 7.21 (7.35-7.45) L 12/06/23 14:01 ABG pCO2 19 mmHg (35-46) L 12/06/23 14:01 ABG pO2 80 mmHg (80-95) 12/06/23 14:01 ABG HCO3 8 mmol/L (19-24) L 12/06/23 14:01 ABG O2 Saturation 94.1 % (90-95) 12/06/23 14:01 Calcium 8.2 mg/dl (8.6-10.3) L 12/13/23 06:29 Phosphorus 2.9 mg/dl (2.5-4.9) 12/13/23 06:29 Magnesium 1.8 mg/dl (1.7-2.4) 12/13/23 06:29 12/13/23 12/13/23 12/13/23 Range/Units 11:32 07:19 06:29 WBC 23.20 H (4.8-10.8) K/ul RBC 2.88 L (4.20-5.40) M/uL Hgb 8.3 L (12.0-16.0) g/dl Hct 26.7 L (37.0-47.0) % MCV 92.7 (80.0-100.0) fL MCH 28.8 (25.0-34.0) pg MCHC 31.1 L (32.0-36.0) g/dL RDW Std Deviation 55.0 H (36.4-46.3) fL RDW Coeff of Mike 17.7 H (11.5-14.5) % Plt Count 176 (130-400) K/uL MPV 13.5 H (9.4-12.4) fL Immature Gran % (Auto) 4.3 % Neut % (Auto) 81.2 % Lymph % (Auto) 9.2 % [place] % (Auto) 5.1 % Eos % (Auto) 0.0 % Baso % (Auto) 0.2 % Neut # (Auto) 18.83 H (1.40-6.50) K/uL Lymph # (Auto) 2.14 (1.20-3.40) K/uL [place] # (Auto) 1.19 H (0.11-0.59) K/uL Eos # (Auto) 0.00 (0.00-0.50) K/uL Baso # (Auto) 0.04 (0.00-0.20) K/uL Immature Gran # (Auto) 1.00 H (0.01-0.20) K/uL Absolute Nucleated RBC 0.07 (0.00-0.12) K/uL Nucleated RBC % (auto) 0.3 % Toxic Vacuolation Polychromasia Hypochromasia Anisocytosis Target Cells Echinocytes Acanthocytes (Spur) PT (9.0-12.0) Seconds INR (0.9-1.1) ABG pH (7.35-7.45) ABG pCO2 (35-46) mmHg ABG pO2 (80-95) mmHg ABG HCO3 (19-24) mmol/L ABG O2 Saturation (90-95) % ABG Base Excess (-9-1.8) mEq/L Harshal Test (Pos) VBG pH (7.36-7.41) VBG pCO2 (38-50) mmHg VBG pO2 mmHg VBG HCO3 mmol/L VBG O2 Saturation % VBG Base Excess mEq/L Oxygen Given Sodium 148 H (136-145) mmol/L Potassium 4.4 (3.5-5.1) mmol/L Chloride 110 H (98-107) mmol/L Carbon Dioxide 32 (21-32) mmol/L Anion Gap 6 (3-11) BUN 70 H (6-23) mg/dl Creatinine 0.90 (0.6-1.2) mg/dl Est Cr Clr Drug Dosing 43.3 ml/min Est GFR ( Amer) 80.5 ml/min Est GFR (Non-Af Amer) 69.5 ml/min BUN/Creatinine Ratio 77.8 H (10-20) Glucose 118 H (70-99(Fasting)) mg/dl POC Glucose 166 H 132 H (70-99) mg/dl POC Glucose (other) (70-99) mg/dl Fasting Glucose (70-99) mg/dl Estimat Average Glucose mg/dl Hemoglobin A1c (4.5-5.6) % Osmolality (280-300) mOsm/kg Lactate (0.4-2.0) mmol/L Calcium 8.2 L (8.6-10.3) mg/dl Phosphorus 2.9 (2.5-4.9) mg/dl Magnesium 1.8 (1.7-2.4) mg/dl Total Bilirubin 0.4 (0.2-1.0) mg/dl Direct Bilirubin (0-0.2) mg/dl AST 47 H (13-39) U/L ALT 62 H (7-52) U/L Alkaline Phosphatase 79 (34-104) U/L Troponin I High Sens (0-14) pg/ml B-Natriuretic Peptide (0-100) pg/ml Total Protein 5.3 L (6.0-8.3) gm/dl Albumin 2.8 L (3.4-5.0) gm/dl Globulin 2.5 (2.5-4.0) gm/dl Albumin/Globulin Ratio 1.1 (0.9-2) Triglycerides 140 (0-150) mg/dl Procalcitonin (0-0.5) ng/ml TSH (0.300-4.500) uIu/ml Random Cortisol mcg/dl Urine Color Urine Appearance (Clear) Urine pH (4.5-7.5) Ur Specific [place] (1.000-1.030) Urine Protein (Negative) Urine Glucose (UA) (Negative) Urine Ketones (Negative) Urine Blood (Negative) Urine Nitrite (Negative) Urine Bilirubin (Negative) Urine Urobilinogen (Negative) Ur Leukocyte Esterase (Negative) Urine WBC (Auto) (0-5) /hpf Urine RBC (Auto) (0-2) /hpf U Hyaline Cast (Auto) (0-2) /lpf U Epithel Cells (Auto) (0-2) /hpf Urine Bacteria (Auto) (None Seen) Urine Osmolality (500-800) mOsm/kg Ur Random Creatinine mg/dl Ur Random Sodium mmol/L Ur Random Potassium mmol/L Ur Random Chloride mmol/L Nasal Screen MRSA (PCR) (Negative) Urine Opiates Screen (Neg) Ur Methadone, Qual (Neg) Urine Fentanyl Screen (Neg) Urine Barbiturates (Neg) Ur Phencyclidine (PCP) (Neg) U Amphetamin/Meth Scrn (Neg) MDMA (Ecstasy) Screen (Neg) U Benzodiazepines Scrn (Neg) Ur Cocaine Metabolite (Neg) U Marijuana (THC) Screen (Neg) Adenovirus (PCR) (NotDetected) B. pertussis DNA (PCR) (NotDetected) B.parapertussis DNA PCR (NotDetected) C. pneumoniae DNA (PCR) (NotDetected) Coronavirus OC43 (PCR) (NotDetected) Coronavirus HKU1 (PCR) (NotDetected) Coronavirus 229E (PCR) (NotDetected) SARS-CoV-2 (PCR) (NotDetected) Coronavirus NL63 (PCR) (NotDetected) Human Metapneumovir PCR (NotDetected) Influenza Type A (PCR) (NotDetected) Influenza Type B (PCR) (NotDetected) Urine Legionella Ag M. pneumoniae (PCR) (NotDetected) Parainfluenza 1 (PCR) (NotDetected) Parainfluenza 2 (PCR) (NotDetected) Parainfluenza 3 (PCR) (NotDetected) Parainfluenza 4 (PCR) (NotDetected) RSV (PCR) (NotDetected) Entero/Rhino (PCR) (NotDetected) Blood Type Antibody Screen Crossmatch 12/13/23 12/13/23 12/12/23 Range/Units 04:20 00:01 20:06 WBC (4.8-10.8) K/ul RBC (4.20-5.40) M/uL Hgb (12.0-16.0) g/dl Hct (37.0-47.0) % MCV (80.0-100.0) fL MCH (25.0-34.0) pg MCHC (32.0-36.0) g/dL RDW Std Deviation (36.4-46.3) fL RDW Coeff of Mike (11.5-14.5) % Plt Count (130-400) K/uL MPV (9.4-12.4) fL Immature Gran % (Auto) % Neut % (Auto) % Lymph % (Auto) % [place] % (Auto) % Eos % (Auto) % Baso % (Auto) % Neut # (Auto) (1.40-6.50) K/uL Lymph # (Auto) (1.20-3.40) K/uL [place] # (Auto) (0.11-0.59) K/uL Eos # (Auto) (0.00-0.50) K/uL Baso # (Auto) (0.00-0.20) K/uL Immature Gran # (Auto) (0.01-0.20) K/uL Absolute Nucleated RBC (0.00-0.12) K/uL Nucleated RBC % (auto) % Toxic Vacuolation Polychromasia Hypochromasia Anisocytosis Target Cells Echinocytes Acanthocytes (Spur) PT (9.0-12.0) Seconds INR (0.9-1.1) ABG pH (7.35-7.45) ABG pCO2 (35-46) mmHg ABG pO2 (80-95) mmHg ABG HCO3 (19-24) mmol/L ABG O2 Saturation (90-95) % ABG Base Excess (-9-1.8) mEq/L Harshal Test (Pos) VBG pH (7.36-7.41) VBG pCO2 (38-50) mmHg VBG pO2 mmHg VBG HCO3 mmol/L VBG O2 Saturation % VBG Base Excess mEq/L Oxygen Given Sodium (136-145) mmol/L Potassium (3.5-5.1) mmol/L Chloride (98-107) mmol/L Carbon Dioxide (21-32) mmol/L Anion Gap (3-11) BUN (6-23) mg/dl Creatinine (0.6-1.2) mg/dl Est Cr Clr Drug Dosing ml/min Est GFR ( Amer) ml/min Est GFR (Non-Af Amer) ml/min BUN/Creatinine Ratio (10-20) Glucose (70-99(Fasting)) mg/dl POC Glucose 122 H 210 H 247 H (70-99) mg/dl POC Glucose (other) (70-99) mg/dl Fasting Glucose (70-99) mg/dl Estimat Average Glucose mg/dl Hemoglobin A1c (4.5-5.6) % Osmolality (280-300) mOsm/kg Lactate (0.4-2.0) mmol/L Calcium (8.6-10.3) mg/dl Phosphorus (2.5-4.9) mg/dl Magnesium (1.7-2.4) mg/dl Total Bilirubin (0.2-1.0) mg/dl Direct Bilirubin (0-0.2) mg/dl AST (13-39) U/L ALT (7-52) U/L Alkaline Phosphatase (34-104) U/L Troponin I High Sens (0-14) pg/ml B-Natriuretic Peptide (0-100) pg/ml Total Protein (6.0-8.3) gm/dl Albumin (3.4-5.0) gm/dl Globulin (2.5-4.0) gm/dl Albumin/Globulin Ratio (0.9-2) Triglycerides (0-150) mg/dl Procalcitonin (0-0.5) ng/ml TSH (0.300-4.500) uIu/ml Random Cortisol mcg/dl Urine Color Urine Appearance (Clear) Urine pH (4.5-7.5) Ur Specific [place] (1.000-1.030) Urine Protein (Negative) Urine Glucose (UA) (Negative) Urine Ketones (Negative) Urine Blood (Negative) Urine Nitrite (Negative) Urine Bilirubin (Negative) Urine Urobilinogen (Negative) Ur Leukocyte Esterase (Negative) Urine WBC (Auto) (0-5) /hpf Urine RBC (Auto) (0-2) /hpf U Hyaline Cast (Auto) (0-2) /lpf U Epithel Cells (Auto) (0-2) /hpf Urine Bacteria (Auto) (None Seen) Urine Osmolality (500-800) mOsm/kg Ur Random Creatinine mg/dl Ur Random Sodium mmol/L Ur Random Potassium mmol/L Ur Random Chloride mmol/L Nasal Screen MRSA (PCR) (Negative) Urine Opiates Screen (Neg) Ur Methadone, Qual (Neg) Urine Fentanyl Screen (Neg) Urine Barbiturates (Neg) Ur Phencyclidine (PCP) (Neg) U Amphetamin/Meth Scrn (Neg) MDMA (Ecstasy) Screen (Neg) U Benzodiazepines Scrn (Neg) Ur Cocaine Metabolite (Neg) U Marijuana (THC) Screen (Neg) Adenovirus (PCR) (NotDetected) B. pertussis DNA (PCR) (NotDetected) B.parapertussis DNA PCR (NotDetected) C. pneumoniae DNA (PCR) (NotDetected) Coronavirus OC43 (PCR) (NotDetected) Coronavirus HKU1 (PCR) (NotDetected) Coronavirus 229E (PCR) (NotDetected) SARS-CoV-2 (PCR) (NotDetected) Coronavirus NL63 (PCR) (NotDetected) Human Metapneumovir PCR (NotDetected) Influenza Type A (PCR) (NotDetected) Influenza Type B (PCR) (NotDetected) Urine Legionella Ag M. pneumoniae (PCR) (NotDetected) Parainfluenza 1 (PCR) (NotDetected) Parainfluenza 2 (PCR) (NotDetected) Parainfluenza 3 (PCR) (NotDetected) Parainfluenza 4 (PCR) (NotDetected) RSV (PCR) (NotDetected) Entero/Rhino (PCR) (NotDetected) Blood Type Antibody Screen Crossmatch 12/12/23 12/12/23 12/12/23 Range/Units 15:54 11:11 07:38 WBC 22.88 H (4.8-10.8) K/ul RBC 3.31 L (4.20-5.40) M/uL Hgb 9.5 L (12.0-16.0) g/dl Hct 29.9 L (37.0-47.0) % MCV 90.3 (80.0-100.0) fL MCH 28.7 (25.0-34.0) pg MCHC 31.8 L (32.0-36.0) g/dL RDW Std Deviation 53.7 H (36.4-46.3) fL RDW Coeff of Mike 17.5 H (11.5-14.5) % Plt Count 194 (130-400) K/uL MPV 13.3 H (9.4-12.4) fL Immature Gran % (Auto) 3.6 % Neut % (Auto) 84.7 % Lymph % (Auto) 7.7 % [place] % (Auto) 3.8 % Eos % (Auto) 0.0 % Baso % (Auto) 0.2 % Neut # (Auto) 19.39 H (1.40-6.50) K/uL Lymph # (Auto) 1.76 (1.20-3.40) K/uL [place] # (Auto) 0.87 H (0.11-0.59) K/uL Eos # (Auto) 0.00 (0.00-0.50) K/uL Baso # (Auto) 0.04 (0.00-0.20) K/uL Immature Gran # (Auto) 0.82 H (0.01-0.20) K/uL Absolute Nucleated RBC 0.13 H (0.00-0.12) K/uL Nucleated RBC % (auto) 0.6 % Toxic Vacuolation Polychromasia Hypochromasia Anisocytosis Target Cells Echinocytes Acanthocytes (Spur) PT (9.0-12.0) Seconds INR (0.9-1.1) ABG pH (7.35-7.45) ABG pCO2 (35-46) mmHg ABG pO2 (80-95) mmHg ABG HCO3 (19-24) mmol/L ABG O2 Saturation (90-95) % ABG Base Excess (-9-1.8) mEq/L Harshal Test (Pos) VBG pH (7.36-7.41) VBG pCO2 (38-50) mmHg VBG pO2 mmHg VBG HCO3 mmol/L VBG O2 Saturation % VBG Base Excess mEq/L Oxygen Given Sodium 148 H (136-145) mmol/L Potassium 4.4 D (3.5-5.1) mmol/L Chloride 110 H (98-107) mmol/L Carbon Dioxide 32 (21-32) mmol/L Anion Gap 6 (3-11) BUN 61 H D (6-23) mg/dl Creatinine 1.05 D (0.6-1.2) mg/dl Est Cr Clr Drug Dosing 37.8 ml/min Est GFR ( Amer) 66.9 ml/min Est GFR (Non-Af Amer) 57.7 ml/min BUN/Creatinine Ratio 58.1 H (10-20) Glucose 137 H (70-99(Fasting)) mg/dl POC Glucose 124 H 197 H (70-99) mg/dl POC Glucose (other) (70-99) mg/dl Fasting Glucose (70-99) mg/dl Estimat Average Glucose mg/dl Hemoglobin A1c (4.5-5.6) % Osmolality (280-300) mOsm/kg Lactate (0.4-2.0) mmol/L Calcium 8.5 L (8.6-10.3) mg/dl Phosphorus 2.8 (2.5-4.9) mg/dl Magnesium 2.0 (1.7-2.4) mg/dl Total Bilirubin 0.5 (0.2-1.0) mg/dl Direct Bilirubin (0-0.2) mg/dl AST 79 H (13-39) U/L ALT 59 H (7-52) U/L Alkaline Phosphatase 95 (34-104) U/L Troponin I High Sens (0-14) pg/ml B-Natriuretic Peptide (0-100) pg/ml Total Protein 5.6 L (6.0-8.3) gm/dl Albumin 3.0 L (3.4-5.0) gm/dl Globulin 2.6 (2.5-4.0) gm/dl Albumin/Globulin Ratio 1.2 (0.9-2) Triglycerides (0-150) mg/dl Procalcitonin (0-0.5) ng/ml TSH (0.300-4.500) uIu/ml Random Cortisol mcg/dl Urine Color Urine Appearance (Clear) Urine pH (4.5-7.5) Ur Specific [place] (1.000-1.030) Urine Protein (Negative) Urine Glucose (UA) (Negative) Urine Ketones (Negative) Urine Blood (Negative) Urine Nitrite (Negative) Urine Bilirubin (Negative) Urine Urobilinogen (Negative) Ur Leukocyte Esterase (Negative) Urine WBC (Auto) (0-5) /hpf Urine RBC (Auto) (0-2) /hpf U Hyaline Cast (Auto) (0-2) /lpf U Epithel Cells (Auto) (0-2) /hpf Urine Bacteria (Auto) (None Seen) Urine Osmolality (500-800) mOsm/kg Ur Random Creatinine mg/dl Ur Random Sodium mmol/L Ur Random Potassium mmol/L Ur Random Chloride mmol/L Nasal Screen MRSA (PCR) (Negative) Urine Opiates Screen (Neg) Ur Methadone, Qual (Neg) Urine Fentanyl Screen (Neg) Urine Barbiturates (Neg) Ur Phencyclidine (PCP) (Neg) U Amphetamin/Meth Scrn (Neg) MDMA (Ecstasy) Screen (Neg) U Benzodiazepines Scrn (Neg) Ur Cocaine Metabolite (Neg) U Marijuana (THC) Screen (Neg) Adenovirus (PCR) (NotDetected) B. pertussis DNA (PCR) (NotDetected) B.parapertussis DNA PCR (NotDetected) C. pneumoniae DNA (PCR) (NotDetected) Coronavirus OC43 (PCR) (NotDetected) Coronavirus HKU1 (PCR) (NotDetected) Coronavirus 229E (PCR) (NotDetected) SARS-CoV-2 (PCR) (NotDetected) Coronavirus NL63 (PCR) (NotDetected) Human Metapneumovir PCR (NotDetected) Influenza Type A (PCR) (NotDetected) Influenza Type B (PCR) (NotDetected) Urine Legionella Ag M. pneumoniae (PCR) (NotDetected) Parainfluenza 1 (PCR) (NotDetected) Parainfluenza 2 (PCR) (NotDetected) Parainfluenza 3 (PCR) (NotDetected) Parainfluenza 4 (PCR) (NotDetected) RSV (PCR) (NotDetected) Entero/Rhino (PCR) (NotDetected) Blood Type Antibody Screen Crossmatch 12/12/23 12/12/23 12/12/23 Range/Units 07:25 04:06 00:22 WBC (4.8-10.8) K/ul RBC (4.20-5.40) M/uL Hgb (12.0-16.0) g/dl Hct (37.0-47.0) % MCV (80.0-100.0) fL MCH (25.0-34.0) pg MCHC (32.0-36.0) g/dL RDW Std Deviation (36.4-46.3) fL RDW Coeff of Mike (11.5-14.5) % Plt Count (130-400) K/uL MPV (9.4-12.4) fL Immature Gran % (Auto) % Neut % (Auto) % Lymph % (Auto) % [place] % (Auto) % Eos % (Auto) % Baso % (Auto) % Neut # (Auto) (1.40-6.50) K/uL Lymph # (Auto) (1.20-3.40) K/uL [place] # (Auto) (0.11-0.59) K/uL Eos # (Auto) (0.00-0.50) K/uL Baso # (Auto) (0.00-0.20) K/uL Immature Gran # (Auto) (0.01-0.20) K/uL Absolute Nucleated RBC (0.00-0.12) K/uL Nucleated RBC % (auto) % Toxic Vacuolation Polychromasia Hypochromasia Anisocytosis Target Cells Echinocytes Acanthocytes (Spur) PT (9.0-12.0) Seconds INR (0.9-1.1) ABG pH (7.35-7.45) ABG pCO2 (35-46) mmHg ABG pO2 (80-95) mmHg ABG HCO3 (19-24) mmol/L ABG O2 Saturation (90-95) % ABG Base Excess (-9-1.8) mEq/L Harshal Test (Pos) VBG pH (7.36-7.41) VBG pCO2 (38-50) mmHg VBG pO2 mmHg VBG HCO3 mmol/L VBG O2 Saturation % VBG Base Excess mEq/L Oxygen Given Sodium (136-145) mmol/L Potassium (3.5-5.1) mmol/L Chloride (98-107) mmol/L Carbon Dioxide (21-32) mmol/L Anion Gap (3-11) BUN (6-23) mg/dl Creatinine (0.6-1.2) mg/dl Est Cr Clr Drug Dosing ml/min Est GFR ( Amer) ml/min Est GFR (Non-Af Amer) ml/min BUN/Creatinine Ratio (10-20) Glucose (70-99(Fasting)) mg/dl POC Glucose 133 H 217 H 252 H (70-99) mg/dl POC Glucose (other) (70-99) mg/dl Fasting Glucose (70-99) mg/dl Estimat Average Glucose mg/dl Hemoglobin A1c (4.5-5.6) % Osmolality (280-300) mOsm/kg Lactate (0.4-2.0) mmol/L Calcium (8.6-10.3) mg/dl Phosphorus (2.5-4.9) mg/dl Magnesium (1.7-2.4) mg/dl Total Bilirubin (0.2-1.0) mg/dl Direct Bilirubin (0-0.2) mg/dl AST (13-39) U/L ALT (7-52) U/L Alkaline Phosphatase (34-104) U/L Troponin I High Sens (0-14) pg/ml B-Natriuretic Peptide (0-100) pg/ml Total Protein (6.0-8.3) gm/dl Albumin (3.4-5.0) gm/dl Globulin (2.5-4.0) gm/dl Albumin/Globulin Ratio (0.9-2) Triglycerides (0-150) mg/dl Procalcitonin (0-0.5) ng/ml TSH (0.300-4.500) uIu/ml Random Cortisol mcg/dl Urine Color Urine Appearance (Clear) Urine pH (4.5-7.5) Ur Specific [place] (1.000-1.030) Urine Protein (Negative) Urine Glucose (UA) (Negative) Urine Ketones (Negative) Urine Blood (Negative) Urine Nitrite (Negative) Urine Bilirubin (Negative) Urine Urobilinogen (Negative) Ur Leukocyte Esterase (Negative) Urine WBC (Auto) (0-5) /hpf Urine RBC (Auto) (0-2) /hpf U Hyaline Cast (Auto) (0-2) /lpf U Epithel Cells (Auto) (0-2) /hpf Urine Bacteria (Auto) (None Seen) Urine Osmolality (500-800) mOsm/kg Ur Random Creatinine mg/dl Ur Random Sodium mmol/L Ur Random Potassium mmol/L Ur Random Chloride mmol/L Nasal Screen MRSA (PCR) (Negative) Urine Opiates Screen (Neg) Ur Methadone, Qual (Neg) Urine Fentanyl Screen (Neg) Urine Barbiturates (Neg) Ur Phencyclidine (PCP) (Neg) U Amphetamin/Meth Scrn (Neg) MDMA (Ecstasy) Screen (Neg) U Benzodiazepines Scrn (Neg) Ur Cocaine Metabolite (Neg) U Marijuana (THC) Screen (Neg) Adenovirus (PCR) (NotDetected) B. pertussis DNA (PCR) (NotDetected) B.parapertussis DNA PCR (NotDetected) C. pneumoniae DNA (PCR) (NotDetected) Coronavirus OC43 (PCR) (NotDetected) Coronavirus HKU1 (PCR) (NotDetected) Coronavirus 229E (PCR) (NotDetected) SARS-CoV-2 (PCR) (NotDetected) Coronavirus NL63 (PCR) (NotDetected) Human Metapneumovir PCR (NotDetected) Influenza Type A (PCR) (NotDetected) Influenza Type B (PCR) (NotDetected) Urine Legionella Ag M. pneumoniae (PCR) (NotDetected) Parainfluenza 1 (PCR) (NotDetected) Parainfluenza 2 (PCR) (NotDetected) Parainfluenza 3 (PCR) (NotDetected) Parainfluenza 4 (PCR) (NotDetected) RSV (PCR) (NotDetected) Entero/Rhino (PCR) (NotDetected) Blood Type Antibody Screen Crossmatch 12/11/23 12/11/23 12/11/23 Range/Units 21:40 16:42 11:31 WBC (4.8-10.8) K/ul RBC (4.20-5.40) M/uL Hgb (12.0-16.0) g/dl Hct (37.0-47.0) % MCV (80.0-100.0) fL MCH (25.0-34.0) pg MCHC (32.0-36.0) g/dL RDW Std Deviation (36.4-46.3) fL RDW Coeff of Mike (11.5-14.5) % Plt Count (130-400) K/uL MPV (9.4-12.4) fL Immature Gran % (Auto) % Neut % (Auto) % Lymph % (Auto) % [place] % (Auto) % Eos % (Auto) % Baso % (Auto) % Neut # (Auto) (1.40-6.50) K/uL Lymph # (Auto) (1.20-3.40) K/uL [place] # (Auto) (0.11-0.59) K/uL Eos # (Auto) (0.00-0.50) K/uL Baso # (Auto) (0.00-0.20) K/uL Immature Gran # (Auto) (0.01-0.20) K/uL Absolute Nucleated RBC (0.00-0.12) K/uL Nucleated RBC % (auto) % Toxic Vacuolation Polychromasia Hypochromasia Anisocytosis Target Cells Echinocytes Acanthocytes (Spur) PT (9.0-12.0) Seconds INR (0.9-1.1) ABG pH (7.35-7.45) ABG pCO2 (35-46) mmHg ABG pO2 (80-95) mmHg ABG HCO3 (19-24) mmol/L ABG O2 Saturation (90-95) % ABG Base Excess (-9-1.8) mEq/L Harshal Test (Pos) VBG pH (7.36-7.41) VBG pCO2 (38-50) mmHg VBG pO2 mmHg VBG HCO3 mmol/L VBG O2 Saturation % VBG Base Excess mEq/L Oxygen Given Sodium (136-145) mmol/L Potassium (3.5-5.1) mmol/L Chloride (98-107) mmol/L Carbon Dioxide (21-32) mmol/L Anion Gap (3-11) BUN (6-23) mg/dl Creatinine (0.6-1.2) mg/dl Est Cr Clr Drug Dosing ml/min Est GFR ( Amer) ml/min Est GFR (Non-Af Amer) ml/min BUN/Creatinine Ratio (10-20) Glucose (70-99(Fasting)) mg/dl POC Glucose 257 H 238 H 173 H (70-99) mg/dl POC Glucose (other) (70-99) mg/dl Fasting Glucose (70-99) mg/dl Estimat Average Glucose mg/dl Hemoglobin A1c (4.5-5.6) % Osmolality (280-300) mOsm/kg Lactate (0.4-2.0) mmol/L Calcium (8.6-10.3) mg/dl Phosphorus (2.5-4.9) mg/dl Magnesium (1.7-2.4) mg/dl Total Bilirubin (0.2-1.0) mg/dl Direct Bilirubin (0-0.2) mg/dl AST (13-39) U/L ALT (7-52) U/L Alkaline Phosphatase (34-104) U/L Troponin I High Sens (0-14) pg/ml B-Natriuretic Peptide (0-100) pg/ml Total Protein (6.0-8.3) gm/dl Albumin (3.4-5.0) gm/dl Globulin (2.5-4.0) gm/dl Albumin/Globulin Ratio (0.9-2) Triglycerides (0-150) mg/dl Procalcitonin (0-0.5) ng/ml TSH (0.300-4.500) uIu/ml Random Cortisol mcg/dl Urine Color Urine Appearance (Clear) Urine pH (4.5-7.5) Ur Specific [place] (1.000-1.030) Urine Protein (Negative) Urine Glucose (UA) (Negative) Urine Ketones (Negative) Urine Blood (Negative) Urine Nitrite (Negative) Urine Bilirubin (Negative) Urine Urobilinogen (Negative) Ur Leukocyte Esterase (Negative) Urine WBC (Auto) (0-5) /hpf Urine RBC (Auto) (0-2) /hpf U Hyaline Cast (Auto) (0-2) /lpf U Epithel Cells (Auto) (0-2) /hpf Urine Bacteria (Auto) (None Seen) Urine Osmolality (500-800) mOsm/kg Ur Random Creatinine mg/dl Ur Random Sodium mmol/L Ur Random Potassium mmol/L Ur Random Chloride mmol/L Nasal Screen MRSA (PCR) (Negative) Urine Opiates Screen (Neg) Ur Methadone, Qual (Neg) Urine Fentanyl Screen (Neg) Urine Barbiturates (Neg) Ur Phencyclidine (PCP) (Neg) U Amphetamin/Meth Scrn (Neg) MDMA (Ecstasy) Screen (Neg) U Benzodiazepines Scrn (Neg) Ur Cocaine Metabolite (Neg) U Marijuana (THC) Screen (Neg) Adenovirus (PCR) (NotDetected) B. pertussis DNA (PCR) (NotDetected) B.parapertussis DNA PCR (NotDetected) C. pneumoniae DNA (PCR) (NotDetected) Coronavirus OC43 (PCR) (NotDetected) Coronavirus HKU1 (PCR) (NotDetected) Coronavirus 229E (PCR) (NotDetected) SARS-CoV-2 (PCR) (NotDetected) Coronavirus NL63 (PCR) (NotDetected) Human Metapneumovir PCR (NotDetected) Influenza Type A (PCR) (NotDetected) Influenza Type B (PCR) (NotDetected) Urine Legionella Ag M. pneumoniae (PCR) (NotDetected) Parainfluenza 1 (PCR) (NotDetected) Parainfluenza 2 (PCR) (NotDetected) Parainfluenza 3 (PCR) (NotDetected) Parainfluenza 4 (PCR) (NotDetected) RSV (PCR) (NotDetected) Entero/Rhino (PCR) (NotDetected) Blood Type Antibody Screen Crossmatch 12/11/23 12/11/23 12/11/23 Range/Units 07:10 05:26 03:57 WBC 18.47 H (4.8-10.8) K/ul RBC 3.02 L (4.20-5.40) M/uL Hgb 8.7 L (12.0-16.0) g/dl Hct 26.8 L (37.0-47.0) % MCV 88.7 (80.0-100.0) fL MCH 28.8 (25.0-34.0) pg MCHC 32.5 (32.0-36.0) g/dL RDW Std Deviation 53.6 H (36.4-46.3) fL RDW Coeff of Mike 16.9 H (11.5-14.5) % Plt Count 201 (130-400) K/uL MPV 13.1 H (9.4-12.4) fL Immature Gran % (Auto) 4.0 % Neut % (Auto) 85.8 % Lymph % (Auto) 7.1 % [place] % (Auto) 2.9 % Eos % (Auto) 0.0 % Baso % (Auto) 0.2 % Neut # (Auto) 15.84 H (1.40-6.50) K/uL Lymph # (Auto) 1.31 (1.20-3.40) K/uL [place] # (Auto) 0.54 (0.11-0.59) K/uL Eos # (Auto) 0.00 (0.00-0.50) K/uL Baso # (Auto) 0.04 (0.00-0.20) K/uL Immature Gran # (Auto) 0.74 H (0.01-0.20) K/uL Absolute Nucleated RBC 0.15 H (0.00-0.12) K/uL Nucleated RBC % (auto) 0.8 % Toxic Vacuolation Polychromasia Hypochromasia Anisocytosis Target Cells Echinocytes Acanthocytes (Spur) PT (9.0-12.0) Seconds INR (0.9-1.1) ABG pH (7.35-7.45) ABG pCO2 (35-46) mmHg ABG pO2 (80-95) mmHg ABG HCO3 (19-24) mmol/L ABG O2 Saturation (90-95) % ABG Base Excess (-9-1.8) mEq/L Harshal Test (Pos) VBG pH (7.36-7.41) VBG pCO2 (38-50) mmHg VBG pO2 mmHg VBG HCO3 mmol/L VBG O2 Saturation % VBG Base Excess mEq/L Oxygen Given Sodium 145 (136-145) mmol/L Potassium 3.6 (3.5-5.1) mmol/L Chloride 109 H (98-107) mmol/L Carbon Dioxide 28 (21-32) mmol/L Anion Gap 8 (3-11) BUN 40 H (6-23) mg/dl Creatinine 1.35 H (0.6-1.2) mg/dl Est Cr Clr Drug Dosing 28.1 ml/min Est GFR ( Amer) 49.3 ml/min Est GFR (Non-Af Amer) 42.6 ml/min BUN/Creatinine Ratio 29.6 H (10-20) Glucose 166 H (70-99(Fasting)) mg/dl POC Glucose 201 H 170 H (70-99) mg/dl POC Glucose (other) (70-99) mg/dl Fasting Glucose (70-99) mg/dl Estimat Average Glucose mg/dl Hemoglobin A1c (4.5-5.6) % Osmolality (280-300) mOsm/kg Lactate (0.4-2.0) mmol/L Calcium 8.3 L (8.6-10.3) mg/dl Phosphorus 3.7 (2.5-4.9) mg/dl Magnesium 2.0 (1.7-2.4) mg/dl Total Bilirubin (0.2-1.0) mg/dl Direct Bilirubin (0-0.2) mg/dl AST (13-39) U/L ALT (7-52) U/L Alkaline Phosphatase (34-104) U/L Troponin I High Sens (0-14) pg/ml B-Natriuretic Peptide (0-100) pg/ml Total Protein (6.0-8.3) gm/dl Albumin (3.4-5.0) gm/dl Globulin (2.5-4.0) gm/dl Albumin/Globulin Ratio (0.9-2) Triglycerides 240 H (0-150) mg/dl Procalcitonin (0-0.5) ng/ml TSH (0.300-4.500) uIu/ml Random Cortisol mcg/dl Urine Color Urine Appearance (Clear) Urine pH (4.5-7.5) Ur Specific [place] (1.000-1.030) Urine Protein (Negative) Urine Glucose (UA) (Negative) Urine Ketones (Negative) Urine Blood (Negative) Urine Nitrite (Negative) Urine Bilirubin (Negative) Urine Urobilinogen (Negative) Ur Leukocyte Esterase (Negative) Urine WBC (Auto) (0-5) /hpf Urine RBC (Auto) (0-2) /hpf U Hyaline Cast (Auto) (0-2) /lpf U Epithel Cells (Auto) (0-2) /hpf Urine Bacteria (Auto) (None Seen) Urine Osmolality (500-800) mOsm/kg Ur Random Creatinine mg/dl Ur Random Sodium mmol/L Ur Random Potassium mmol/L Ur Random Chloride mmol/L Nasal Screen MRSA (PCR) (Negative) Urine Opiates Screen (Neg) Ur Methadone, Qual (Neg) Urine Fentanyl Screen (Neg) Urine Barbiturates (Neg) Ur Phencyclidine (PCP) (Neg) U Amphetamin/Meth Scrn (Neg) MDMA (Ecstasy) Screen (Neg) U Benzodiazepines Scrn (Neg) Ur Cocaine Metabolite (Neg) U Marijuana (THC) Screen (Neg) Adenovirus (PCR) (NotDetected) B. pertussis DNA (PCR) (NotDetected) B.parapertussis DNA PCR (NotDetected) C. pneumoniae DNA (PCR) (NotDetected) Coronavirus OC43 (PCR) (NotDetected) Coronavirus HKU1 (PCR) (NotDetected) Coronavirus 229E (PCR) (NotDetected) SARS-CoV-2 (PCR) (NotDetected) Coronavirus NL63 (PCR) (NotDetected) Human Metapneumovir PCR (NotDetected) Influenza Type A (PCR) (NotDetected) Influenza Type B (PCR) (NotDetected) Urine Legionella Ag M. pneumoniae (PCR) (NotDetected) Parainfluenza 1 (PCR) (NotDetected) Parainfluenza 2 (PCR) (NotDetected) Parainfluenza 3 (PCR) (NotDetected) Parainfluenza 4 (PCR) (NotDetected) RSV (PCR) (NotDetected) Entero/Rhino (PCR) (NotDetected) Blood Type Antibody Screen Crossmatch 12/11/23 12/10/23 12/10/23 Range/Units 00:05 20:23 15:58 WBC (4.8-10.8) K/ul RBC (4.20-5.40) M/uL Hgb (12.0-16.0) g/dl Hct (37.0-47.0) % MCV (80.0-100.0) fL MCH (25.0-34.0) pg MCHC (32.0-36.0) g/dL RDW Std Deviation (36.4-46.3) fL RDW Coeff of Mike (11.5-14.5) % Plt Count (130-400) K/uL MPV (9.4-12.4) fL Immature Gran % (Auto) % Neut % (Auto) % Lymph % (Auto) % [place] % (Auto) % Eos % (Auto) % Baso % (Auto) % Neut # (Auto) (1.40-6.50) K/uL Lymph # (Auto) (1.20-3.40) K/uL [place] # (Auto) (0.11-0.59) K/uL Eos # (Auto) (0.00-0.50) K/uL Baso # (Auto) (0.00-0.20) K/uL Immature Gran # (Auto) (0.01-0.20) K/uL Absolute Nucleated RBC (0.00-0.12) K/uL Nucleated RBC % (auto) % Toxic Vacuolation Polychromasia Hypochromasia Anisocytosis Target Cells Echinocytes Acanthocytes (Spur) PT (9.0-12.0) Seconds INR (0.9-1.1) ABG pH (7.35-7.45) ABG pCO2 (35-46) mmHg ABG pO2 (80-95) mmHg ABG HCO3 (19-24) mmol/L ABG O2 Saturation (90-95) % ABG Base Excess (-9-1.8) mEq/L Harshal Test (Pos) VBG pH (7.36-7.41) VBG pCO2 (38-50) mmHg VBG pO2 mmHg VBG HCO3 mmol/L VBG O2 Saturation % VBG Base Excess mEq/L Oxygen Given Sodium (136-145) mmol/L Potassium (3.5-5.1) mmol/L Chloride (98-107) mmol/L Carbon Dioxide (21-32) mmol/L Anion Gap (3-11) BUN (6-23) mg/dl Creatinine (0.6-1.2) mg/dl Est Cr Clr Drug Dosing ml/min Est GFR ( Amer) ml/min Est GFR (Non-Af Amer) ml/min BUN/Creatinine Ratio (10-20) Glucose (70-99(Fasting)) mg/dl POC Glucose 173 H 167 H 110 H (70-99) mg/dl POC Glucose (other) (70-99) mg/dl Fasting Glucose (70-99) mg/dl Estimat Average Glucose mg/dl Hemoglobin A1c (4.5-5.6) % Osmolality (280-300) mOsm/kg Lactate (0.4-2.0) mmol/L Calcium (8.6-10.3) mg/dl Phosphorus (2.5-4.9) mg/dl Magnesium (1.7-2.4) mg/dl Total Bilirubin (0.2-1.0) mg/dl Direct Bilirubin (0-0.2) mg/dl AST (13-39) U/L ALT (7-52) U/L Alkaline Phosphatase (34-104) U/L Troponin I High Sens (0-14) pg/ml B-Natriuretic Peptide (0-100) pg/ml Total Protein (6.0-8.3) gm/dl Albumin (3.4-5.0) gm/dl Globulin (2.5-4.0) gm/dl Albumin/Globulin Ratio (0.9-2) Triglycerides (0-150) mg/dl Procalcitonin (0-0.5) ng/ml TSH (0.300-4.500) uIu/ml Random Cortisol mcg/dl Urine Color Urine Appearance (Clear) Urine pH (4.5-7.5) Ur Specific [place] (1.000-1.030) Urine Protein (Negative) Urine Glucose (UA) (Negative) Urine Ketones (Negative) Urine Blood (Negative) Urine Nitrite (Negative) Urine Bilirubin (Negative) Urine Urobilinogen (Negative) Ur Leukocyte Esterase (Negative) Urine WBC (Auto) (0-5) /hpf Urine RBC (Auto) (0-2) /hpf U Hyaline Cast (Auto) (0-2) /lpf U Epithel Cells (Auto) (0-2) /hpf Urine Bacteria (Auto) (None Seen) Urine Osmolality (500-800) mOsm/kg Ur Random Creatinine mg/dl Ur Random Sodium mmol/L Ur Random Potassium mmol/L Ur Random Chloride mmol/L Nasal Screen MRSA (PCR) (Negative) Urine Opiates Screen (Neg) Ur Methadone, Qual (Neg) Urine Fentanyl Screen (Neg) Urine Barbiturates (Neg) Ur Phencyclidine (PCP) (Neg) U Amphetamin/Meth Scrn (Neg) MDMA (Ecstasy) Screen (Neg) U Benzodiazepines Scrn (Neg) Ur Cocaine Metabolite (Neg) U Marijuana (THC) Screen (Neg) Adenovirus (PCR) (NotDetected) B. pertussis DNA (PCR) (NotDetected) B.parapertussis DNA PCR (NotDetected) C. pneumoniae DNA (PCR) (NotDetected) Coronavirus OC43 (PCR) (NotDetected) Coronavirus HKU1 (PCR) (NotDetected) Coronavirus 229E (PCR) (NotDetected) SARS-CoV-2 (PCR) (NotDetected) Coronavirus NL63 (PCR) (NotDetected) Human Metapneumovir PCR (NotDetected) Influenza Type A (PCR) (NotDetected) Influenza Type B (PCR) (NotDetected) Urine Legionella Ag M. pneumoniae (PCR) (NotDetected) Parainfluenza 1 (PCR) (NotDetected) Parainfluenza 2 (PCR) (NotDetected) Parainfluenza 3 (PCR) (NotDetected) Parainfluenza 4 (PCR) (NotDetected) RSV (PCR) (NotDetected) Entero/Rhino (PCR) (NotDetected) Blood Type Antibody Screen Crossmatch 12/10/23 12/10/23 12/10/23 Range/Units 11:08 10:15 07:22 WBC (4.8-10.8) K/ul RBC (4.20-5.40) M/uL Hgb (12.0-16.0) g/dl Hct (37.0-47.0) % MCV (80.0-100.0) fL MCH (25.0-34.0) pg MCHC (32.0-36.0) g/dL RDW Std Deviation (36.4-46.3) fL RDW Coeff of Mike (11.5-14.5) % Plt Count (130-400) K/uL MPV (9.4-12.4) fL Immature Gran % (Auto) % Neut % (Auto) % Lymph % (Auto) % [place] % (Auto) % Eos % (Auto) % Baso % (Auto) % Neut # (Auto) (1.40-6.50) K/uL Lymph # (Auto) (1.20-3.40) K/uL [place] # (Auto) (0.11-0.59) K/uL Eos # (Auto) (0.00-0.50) K/uL Baso # (Auto) (0.00-0.20) K/uL Immature Gran # (Auto) (0.01-0.20) K/uL Absolute Nucleated RBC (0.00-0.12) K/uL Nucleated RBC % (auto) % Toxic Vacuolation Polychromasia Hypochromasia Anisocytosis Target Cells Echinocytes Acanthocytes (Spur) PT (9.0-12.0) Seconds INR (0.9-1.1) ABG pH (7.35-7.45) ABG pCO2 (35-46) mmHg ABG pO2 (80-95) mmHg ABG HCO3 (19-24) mmol/L ABG O2 Saturation (90-95) % ABG Base Excess (-9-1.8) mEq/L Harshal Test (Pos) VBG pH (7.36-7.41) VBG pCO2 (38-50) mmHg VBG pO2 mmHg VBG HCO3 mmol/L VBG O2 Saturation % VBG Base Excess mEq/L Oxygen Given Sodium (136-145) mmol/L Potassium (3.5-5.1) mmol/L Chloride (98-107) mmol/L Carbon Dioxide (21-32) mmol/L Anion Gap (3-11) BUN (6-23) mg/dl Creatinine (0.6-1.2) mg/dl Est Cr Clr Drug Dosing ml/min Est GFR ( Amer) ml/min Est GFR (Non-Af Amer) ml/min BUN/Creatinine Ratio (10-20) Glucose (70-99(Fasting)) mg/dl POC Glucose 128 H 97 (70-99) mg/dl POC Glucose (other) (70-99) mg/dl Fasting Glucose (70-99) mg/dl Estimat Average Glucose mg/dl Hemoglobin A1c (4.5-5.6) % Osmolality (280-300) mOsm/kg Lactate (0.4-2.0) mmol/L Calcium (8.6-10.3) mg/dl Phosphorus (2.5-4.9) mg/dl Magnesium (1.7-2.4) mg/dl Total Bilirubin (0.2-1.0) mg/dl Direct Bilirubin (0-0.2) mg/dl AST (13-39) U/L ALT (7-52) U/L Alkaline Phosphatase (34-104) U/L Troponin I High Sens (0-14) pg/ml B-Natriuretic Peptide (0-100) pg/ml Total Protein (6.0-8.3) gm/dl Albumin (3.4-5.0) gm/dl Globulin (2.5-4.0) gm/dl Albumin/Globulin Ratio (0.9-2) Triglycerides (0-150) mg/dl Procalcitonin (0-0.5) ng/ml TSH (0.300-4.500) uIu/ml Random Cortisol mcg/dl Urine Color Urine Appearance (Clear) Urine pH (4.5-7.5) Ur Specific [place] (1.000-1.030) Urine Protein (Negative) Urine Glucose (UA) (Negative) Urine Ketones (Negative) Urine Blood (Negative) Urine Nitrite (Negative) Urine Bilirubin (Negative) Urine Urobilinogen (Negative) Ur Leukocyte Esterase (Negative) Urine WBC (Auto) (0-5) /hpf Urine RBC (Auto) (0-2) /hpf U Hyaline Cast (Auto) (0-2) /lpf U Epithel Cells (Auto) (0-2) /hpf Urine Bacteria (Auto) (None Seen) Urine Osmolality (500-800) mOsm/kg Ur Random Creatinine mg/dl Ur Random Sodium mmol/L Ur Random Potassium mmol/L Ur Random Chloride mmol/L Nasal Screen MRSA (PCR) (Negative) Urine Opiates Screen (Neg) Ur Methadone, Qual (Neg) Urine Fentanyl Screen (Neg) Urine Barbiturates (Neg) Ur Phencyclidine (PCP) (Neg) U Amphetamin/Meth Scrn (Neg) MDMA (Ecstasy) Screen (Neg) U Benzodiazepines Scrn (Neg) Ur Cocaine Metabolite (Neg) U Marijuana (THC) Screen (Neg) Adenovirus (PCR) (NotDetected) B. pertussis DNA (PCR) (NotDetected) B.parapertussis DNA PCR (NotDetected) C. pneumoniae DNA (PCR) (NotDetected) Coronavirus OC43 (PCR) (NotDetected) Coronavirus HKU1 (PCR) (NotDetected) Coronavirus 229E (PCR) (NotDetected) SARS-CoV-2 (PCR) (NotDetected) Coronavirus NL63 (PCR) (NotDetected) Human Metapneumovir PCR (NotDetected) Influenza Type A (PCR) (NotDetected) Influenza Type B (PCR) (NotDetected) Urine Legionella Ag SEE NOTE M. pneumoniae (PCR) (NotDetected) Parainfluenza 1 (PCR) (NotDetected) Parainfluenza 2 (PCR) (NotDetected) Parainfluenza 3 (PCR) (NotDetected) Parainfluenza 4 (PCR) (NotDetected) RSV (PCR) (NotDetected) Entero/Rhino (PCR) (NotDetected) Blood Type Antibody Screen Crossmatch 12/10/23 12/10/23 12/10/23 Range/Units 03:53 03:51 03:46 WBC 21.03 H (4.8-10.8) K/ul RBC 3.21 L (4.20-5.40) M/uL Hgb 9.4 L (12.0-16.0) g/dl Hct 28.1 L (37.0-47.0) % MCV 87.5 (80.0-100.0) fL MCH 29.3 (25.0-34.0) pg MCHC 33.5 (32.0-36.0) g/dL RDW Std Deviation 55.3 H (36.4-46.3) fL RDW Coeff of Mike 17.4 H (11.5-14.5) % Plt Count 192 (130-400) K/uL MPV 12.6 H (9.4-12.4) fL Immature Gran % (Auto) 2.9 % Neut % (Auto) 78.5 % Lymph % (Auto) 15.1 % [place] % (Auto) 3.2 % Eos % (Auto) 0.1 % Baso % (Auto) 0.2 % Neut # (Auto) 16.49 H (1.40-6.50) K/uL Lymph # (Auto) 3.17 (1.20-3.40) K/uL [place] # (Auto) 0.67 H (0.11-0.59) K/uL Eos # (Auto) 0.03 (0.00-0.50) K/uL Baso # (Auto) 0.05 (0.00-0.20) K/uL Immature Gran # (Auto) 0.62 H (0.01-0.20) K/uL Absolute Nucleated RBC 0.06 (0.00-0.12) K/uL Nucleated RBC % (auto) 0.3 % Toxic Vacuolation Polychromasia Hypochromasia Anisocytosis Target Cells Echinocytes Acanthocytes (Spur) PT (9.0-12.0) Seconds INR (0.9-1.1) ABG pH (7.35-7.45) ABG pCO2 (35-46) mmHg ABG pO2 (80-95) mmHg ABG HCO3 (19-24) mmol/L ABG O2 Saturation (90-95) % ABG Base Excess (-9-1.8) mEq/L Harshal Test (Pos) VBG pH (7.36-7.41) VBG pCO2 (38-50) mmHg VBG pO2 mmHg VBG HCO3 mmol/L VBG O2 Saturation % VBG Base Excess mEq/L Oxygen Given Sodium 146 H (136-145) mmol/L Potassium 3.6 (3.5-5.1) mmol/L Chloride 108 H (98-107) mmol/L Carbon Dioxide 28 (21-32) mmol/L Anion Gap 10 (3-11) BUN 36 H (6-23) mg/dl Creatinine 1.49 H (0.6-1.2) mg/dl Est Cr Clr Drug Dosing 25.5 ml/min Est GFR ( Amer) 43.8 ml/min Est GFR (Non-Af Amer) 37.8 ml/min BUN/Creatinine Ratio 24.2 H (10-20) Glucose 94 (70-99(Fasting)) mg/dl POC Glucose 92 (70-99) mg/dl POC Glucose (other) (70-99) mg/dl Fasting Glucose (70-99) mg/dl Estimat Average Glucose mg/dl Hemoglobin A1c (4.5-5.6) % Osmolality (280-300) mOsm/kg Lactate (0.4-2.0) mmol/L Calcium 8.1 L (8.6-10.3) mg/dl Phosphorus 3.7 D (2.5-4.9) mg/dl Magnesium 2.0 (1.7-2.4) mg/dl Total Bilirubin (0.2-1.0) mg/dl Direct Bilirubin (0-0.2) mg/dl AST (13-39) U/L ALT (7-52) U/L Alkaline Phosphatase (34-104) U/L Troponin I High Sens (0-14) pg/ml B-Natriuretic Peptide (0-100) pg/ml Total Protein (6.0-8.3) gm/dl Albumin (3.4-5.0) gm/dl Globulin (2.5-4.0) gm/dl Albumin/Globulin Ratio (0.9-2) Triglycerides (0-150) mg/dl Procalcitonin (0-0.5) ng/ml TSH (0.300-4.500) uIu/ml Random Cortisol mcg/dl Urine Color Urine Appearance (Clear) Urine pH (4.5-7.5) Ur Specific [place] (1.000-1.030) Urine Protein (Negative) Urine Glucose (UA) (Negative) Urine Ketones (Negative) Urine Blood (Negative) Urine Nitrite (Negative) Urine Bilirubin (Negative) Urine Urobilinogen (Negative) Ur Leukocyte Esterase (Negative) Urine WBC (Auto) (0-5) /hpf Urine RBC (Auto) (0-2) /hpf U Hyaline Cast (Auto) (0-2) /lpf U Epithel Cells (Auto) (0-2) /hpf Urine Bacteria (Auto) (None Seen) Urine Osmolality (500-800) mOsm/kg Ur Random Creatinine mg/dl Ur Random Sodium mmol/L Ur Random Potassium mmol/L Ur Random Chloride mmol/L Nasal Screen MRSA (PCR) (Negative) Urine Opiates Screen (Neg) Ur Methadone, Qual (Neg) Urine Fentanyl Screen (Neg) Urine Barbiturates (Neg) Ur Phencyclidine (PCP) (Neg) U Amphetamin/Meth Scrn (Neg) MDMA (Ecstasy) Screen (Neg) U Benzodiazepines Scrn (Neg) Ur Cocaine Metabolite (Neg) U Marijuana (THC) Screen (Neg) Adenovirus (PCR) (NotDetected) B. pertussis DNA (PCR) (NotDetected) B.parapertussis DNA PCR (NotDetected) C. pneumoniae DNA (PCR) (NotDetected) Coronavirus OC43 (PCR) (NotDetected) Coronavirus HKU1 (PCR) (NotDetected) Coronavirus 229E (PCR) (NotDetected) SARS-CoV-2 (PCR) (NotDetected) Coronavirus NL63 (PCR) (NotDetected) Human Metapneumovir PCR (NotDetected) Influenza Type A (PCR) (NotDetected) Influenza Type B (PCR) (NotDetected) Urine Legionella Ag M. pneumoniae (PCR) (NotDetected) Parainfluenza 1 (PCR) (NotDetected) Parainfluenza 2 (PCR) (NotDetected) Parainfluenza 3 (PCR) (NotDetected) Parainfluenza 4 (PCR) (NotDetected) RSV (PCR) (NotDetected) Entero/Rhino (PCR) (NotDetected) Blood Type Antibody Screen Crossmatch 12/09/23 12/09/23 12/09/23 Range/Units 23:48 19:38 15:40 WBC (4.8-10.8) K/ul RBC (4.20-5.40) M/uL Hgb (12.0-16.0) g/dl Hct (37.0-47.0) % MCV (80.0-100.0) fL MCH (25.0-34.0) pg MCHC (32.0-36.0) g/dL RDW Std Deviation (36.4-46.3) fL RDW Coeff of Mike (11.5-14.5) % Plt Count (130-400) K/uL MPV (9.4-12.4) fL Immature Gran % (Auto) % Neut % (Auto) % Lymph % (Auto) % [place] % (Auto) % Eos % (Auto) % Baso % (Auto) % Neut # (Auto) (1.40-6.50) K/uL Lymph # (Auto) (1.20-3.40) K/uL [place] # (Auto) (0.11-0.59) K/uL Eos # (Auto) (0.00-0.50) K/uL Baso # (Auto) (0.00-0.20) K/uL Immature Gran # (Auto) (0.01-0.20) K/uL Absolute Nucleated RBC (0.00-0.12) K/uL Nucleated RBC % (auto) % Toxic Vacuolation Polychromasia Hypochromasia Anisocytosis Target Cells Echinocytes Acanthocytes (Spur) PT (9.0-12.0) Seconds INR (0.9-1.1) ABG pH (7.35-7.45) ABG pCO2 (35-46) mmHg ABG pO2 (80-95) mmHg ABG HCO3 (19-24) mmol/L ABG O2 Saturation (90-95) % ABG Base Excess (-9-1.8) mEq/L Harshal Test (Pos) VBG pH (7.36-7.41) VBG pCO2 (38-50) mmHg VBG pO2 mmHg VBG HCO3 mmol/L VBG O2 Saturation % VBG Base Excess mEq/L Oxygen Given Sodium (136-145) mmol/L Potassium (3.5-5.1) mmol/L Chloride (98-107) mmol/L Carbon Dioxide (21-32) mmol/L Anion Gap (3-11) BUN (6-23) mg/dl Creatinine (0.6-1.2) mg/dl Est Cr Clr Drug Dosing ml/min Est GFR ( Amer) ml/min Est GFR (Non-Af Amer) ml/min BUN/Creatinine Ratio (10-20) Glucose (70-99(Fasting)) mg/dl POC Glucose 115 H 115 H 154 H (70-99) mg/dl POC Glucose (other) (70-99) mg/dl Fasting Glucose (70-99) mg/dl Estimat Average Glucose mg/dl Hemoglobin A1c (4.5-5.6) % Osmolality (280-300) mOsm/kg Lactate (0.4-2.0) mmol/L Calcium (8.6-10.3) mg/dl Phosphorus (2.5-4.9) mg/dl Magnesium (1.7-2.4) mg/dl Total Bilirubin (0.2-1.0) mg/dl Direct Bilirubin (0-0.2) mg/dl AST (13-39) U/L ALT (7-52) U/L Alkaline Phosphatase (34-104) U/L Troponin I High Sens (0-14) pg/ml B-Natriuretic Peptide (0-100) pg/ml Total Protein (6.0-8.3) gm/dl Albumin (3.4-5.0) gm/dl Globulin (2.5-4.0) gm/dl Albumin/Globulin Ratio (0.9-2) Triglycerides (0-150) mg/dl Procalcitonin (0-0.5) ng/ml TSH (0.300-4.500) uIu/ml Random Cortisol mcg/dl Urine Color Urine Appearance (Clear) Urine pH (4.5-7.5) Ur Specific [place] (1.000-1.030) Urine Protein (Negative) Urine Glucose (UA) (Negative) Urine Ketones (Negative) Urine Blood (Negative) Urine Nitrite (Negative) Urine Bilirubin (Negative) Urine Urobilinogen (Negative) Ur Leukocyte Esterase (Negative) Urine WBC (Auto) (0-5) /hpf Urine RBC (Auto) (0-2) /hpf U Hyaline Cast (Auto) (0-2) /lpf U Epithel Cells (Auto) (0-2) /hpf Urine Bacteria (Auto) (None Seen) Urine Osmolality (500-800) mOsm/kg Ur Random Creatinine mg/dl Ur Random Sodium mmol/L Ur Random Potassium mmol/L Ur Random Chloride mmol/L Nasal Screen MRSA (PCR) (Negative) Urine Opiates Screen (Neg) Ur Methadone, Qual (Neg) Urine Fentanyl Screen (Neg) Urine Barbiturates (Neg) Ur Phencyclidine (PCP) (Neg) U Amphetamin/Meth Scrn (Neg) MDMA (Ecstasy) Screen (Neg) U Benzodiazepines Scrn (Neg) Ur Cocaine Metabolite (Neg) U Marijuana (THC) Screen (Neg) Adenovirus (PCR) (NotDetected) B. pertussis DNA (PCR) (NotDetected) B.parapertussis DNA PCR (NotDetected) C. pneumoniae DNA (PCR) (NotDetected) Coronavirus OC43 (PCR) (NotDetected) Coronavirus HKU1 (PCR) (NotDetected) Coronavirus 229E (PCR) (NotDetected) SARS-CoV-2 (PCR) (NotDetected) Coronavirus NL63 (PCR) (NotDetected) Human Metapneumovir PCR (NotDetected) Influenza Type A (PCR) (NotDetected) Influenza Type B (PCR) (NotDetected) Urine Legionella Ag M. pneumoniae (PCR) (NotDetected) Parainfluenza 1 (PCR) (NotDetected) Parainfluenza 2 (PCR) (NotDetected) Parainfluenza 3 (PCR) (NotDetected) Parainfluenza 4 (PCR) (NotDetected) RSV (PCR) (NotDetected) Entero/Rhino (PCR) (NotDetected) Blood Type Antibody Screen Crossmatch 12/09/23 12/09/23 12/09/23 Range/Units 14:53 11:14 08:52 WBC (4.8-10.8) K/ul RBC (4.20-5.40) M/uL Hgb (12.0-16.0) g/dl Hct (37.0-47.0) % MCV (80.0-100.0) fL MCH (25.0-34.0) pg MCHC (32.0-36.0) g/dL RDW Std Deviation (36.4-46.3) fL RDW Coeff of Mike (11.5-14.5) % Plt Count (130-400) K/uL MPV (9.4-12.4) fL Immature Gran % (Auto) % Neut % (Auto) % Lymph % (Auto) % [place] % (Auto) % Eos % (Auto) % Baso % (Auto) % Neut # (Auto) (1.40-6.50) K/uL Lymph # (Auto) (1.20-3.40) K/uL [place] # (Auto) (0.11-0.59) K/uL Eos # (Auto) (0.00-0.50) K/uL Baso # (Auto) (0.00-0.20) K/uL Immature Gran # (Auto) (0.01-0.20) K/uL Absolute Nucleated RBC (0.00-0.12) K/uL Nucleated RBC % (auto) % Toxic Vacuolation Polychromasia Hypochromasia Anisocytosis Target Cells Echinocytes Acanthocytes (Spur) PT (9.0-12.0) Seconds INR (0.9-1.1) ABG pH (7.35-7.45) ABG pCO2 (35-46) mmHg ABG pO2 (80-95) mmHg ABG HCO3 (19-24) mmol/L ABG O2 Saturation (90-95) % ABG Base Excess (-9-1.8) mEq/L Harshal Test (Pos) VBG pH (7.36-7.41) VBG pCO2 (38-50) mmHg VBG pO2 mmHg VBG HCO3 mmol/L VBG O2 Saturation % VBG Base Excess mEq/L Oxygen Given Sodium 141 (136-145) mmol/L Potassium 3.8 D (3.5-5.1) mmol/L Chloride 107 (98-107) mmol/L Carbon Dioxide 27 (21-32) mmol/L Anion Gap 7 (3-11) BUN 35 H (6-23) mg/dl Creatinine 1.37 H (0.6-1.2) mg/dl Est Cr Clr Drug Dosing 27.1 ml/min Est GFR ( Amer) 48.5 ml/min Est GFR (Non-Af Amer) 41.8 ml/min BUN/Creatinine Ratio 25.5 H (10-20) Glucose 131 H (70-99(Fasting)) mg/dl POC Glucose 134 H 127 H (70-99) mg/dl POC Glucose (other) (70-99) mg/dl Fasting Glucose (70-99) mg/dl Estimat Average Glucose mg/dl Hemoglobin A1c (4.5-5.6) % Osmolality (280-300) mOsm/kg Lactate (0.4-2.0) mmol/L Calcium 7.7 L (8.6-10.3) mg/dl Phosphorus (2.5-4.9) mg/dl Magnesium (1.7-2.4) mg/dl Total Bilirubin (0.2-1.0) mg/dl Direct Bilirubin (0-0.2) mg/dl AST (13-39) U/L ALT (7-52) U/L Alkaline Phosphatase (34-104) U/L Troponin I High Sens (0-14) pg/ml B-Natriuretic Peptide (0-100) pg/ml Total Protein (6.0-8.3) gm/dl Albumin (3.4-5.0) gm/dl Globulin (2.5-4.0) gm/dl Albumin/Globulin Ratio (0.9-2) Triglycerides (0-150) mg/dl Procalcitonin (0-0.5) ng/ml TSH (0.300-4.500) uIu/ml Random Cortisol mcg/dl Urine Color Urine Appearance (Clear) Urine pH (4.5-7.5) Ur Specific [place] (1.000-1.030) Urine Protein (Negative) Urine Glucose (UA) (Negative) Urine Ketones (Negative) Urine Blood (Negative) Urine Nitrite (Negative) Urine Bilirubin (Negative) Urine Urobilinogen (Negative) Ur Leukocyte Esterase (Negative) Urine WBC (Auto) (0-5) /hpf Urine RBC (Auto) (0-2) /hpf U Hyaline Cast (Auto) (0-2) /lpf U Epithel Cells (Auto) (0-2) /hpf Urine Bacteria (Auto) (None Seen) Urine Osmolality (500-800) mOsm/kg Ur Random Creatinine mg/dl Ur Random Sodium mmol/L Ur Random Potassium mmol/L Ur Random Chloride mmol/L Nasal Screen MRSA (PCR) (Negative) Urine Opiates Screen (Neg) Ur Methadone, Qual (Neg) Urine Fentanyl Screen (Neg) Urine Barbiturates (Neg) Ur Phencyclidine (PCP) (Neg) U Amphetamin/Meth Scrn (Neg) MDMA (Ecstasy) Screen (Neg) U Benzodiazepines Scrn (Neg) Ur Cocaine Metabolite (Neg) U Marijuana (THC) Screen (Neg) Adenovirus (PCR) (NotDetected) B. pertussis DNA (PCR) (NotDetected) B.parapertussis DNA PCR (NotDetected) C. pneumoniae DNA (PCR) (NotDetected) Coronavirus OC43 (PCR) (NotDetected) Coronavirus HKU1 (PCR) (NotDetected) Coronavirus 229E (PCR) (NotDetected) SARS-CoV-2 (PCR) (NotDetected) Coronavirus NL63 (PCR) (NotDetected) Human Metapneumovir PCR (NotDetected) Influenza Type A (PCR) (NotDetected) Influenza Type B (PCR) (NotDetected) Urine Legionella Ag M. pneumoniae (PCR) (NotDetected) Parainfluenza 1 (PCR) (NotDetected) Parainfluenza 2 (PCR) (NotDetected) Parainfluenza 3 (PCR) (NotDetected) Parainfluenza 4 (PCR) (NotDetected) RSV (PCR) (NotDetected) Entero/Rhino (PCR) (NotDetected) Blood Type Antibody Screen Crossmatch 12/09/23 12/09/23 12/09/23 Range/Units 08:07 05:56 05:03 WBC 18.02 H D (4.8-10.8) K/ul RBC 2.41 L (4.20-5.40) M/uL Hgb 6.9 L* (12.0-16.0) g/dl Hct 21.3 L (37.0-47.0) % MCV 88.4 (80.0-100.0) fL MCH 28.6 (25.0-34.0) pg MCHC 32.4 (32.0-36.0) g/dL RDW Std Deviation 57.5 H (36.4-46.3) fL RDW Coeff of Mike 17.8 H (11.5-14.5) % Plt Count 213 (130-400) K/uL MPV 12.9 H (9.4-12.4) fL Immature Gran % (Auto) 1.2 % Neut % (Auto) 81.8 % Lymph % (Auto) 14.2 % [place] % (Auto) 2.6 % Eos % (Auto) 0.1 % Baso % (Auto) 0.1 % Neut # (Auto) 14.74 H (1.40-6.50) K/uL Lymph # (Auto) 2.56 (1.20-3.40) K/uL [place] # (Auto) 0.47 (0.11-0.59) K/uL Eos # (Auto) 0.01 (0.00-0.50) K/uL Baso # (Auto) 0.02 (0.00-0.20) K/uL Immature Gran # (Auto) 0.22 H (0.01-0.20) K/uL Absolute Nucleated RBC 0.04 (0.00-0.12) K/uL Nucleated RBC % (auto) 0.2 % Toxic Vacuolation 1+ Polychromasia Hypochromasia Present Anisocytosis Target Cells 1+ Echinocytes Acanthocytes (Spur) PT (9.0-12.0) Seconds INR (0.9-1.1) ABG pH (7.35-7.45) ABG pCO2 (35-46) mmHg ABG pO2 (80-95) mmHg ABG HCO3 (19-24) mmol/L ABG O2 Saturation (90-95) % ABG Base Excess (-9-1.8) mEq/L Harshal Test (Pos) VBG pH 7.36 (7.36-7.41) VBG pCO2 45 (38-50) mmHg VBG pO2 30 mmHg VBG HCO3 25 mmol/L VBG O2 Saturation < 60.0 % VBG Base Excess -0.4 mEq/L Oxygen Given Sodium 138 (136-145) mmol/L Potassium 5.0 D (3.5-5.1) mmol/L Chloride 105 (98-107) mmol/L Carbon Dioxide 26 (21-32) mmol/L Anion Gap 7 (3-11) BUN 31 H (6-23) mg/dl Creatinine 1.32 H (0.6-1.2) mg/dl Est Cr Clr Drug Dosing 28.1 ml/min Est GFR ( Amer) 50.7 ml/min Est GFR (Non-Af Amer) 43.7 ml/min BUN/Creatinine Ratio 23.5 H (10-20) Glucose 292 H (70-99(Fasting)) mg/dl POC Glucose 120 H (70-99) mg/dl POC Glucose (other) (70-99) mg/dl Fasting Glucose (70-99) mg/dl Estimat Average Glucose mg/dl Hemoglobin A1c (4.5-5.6) % Osmolality (280-300) mOsm/kg Lactate (0.4-2.0) mmol/L Calcium 7.4 L (8.6-10.3) mg/dl Phosphorus 5.1 H D (2.5-4.9) mg/dl Magnesium 2.3 (1.7-2.4) mg/dl Total Bilirubin (0.2-1.0) mg/dl Direct Bilirubin (0-0.2) mg/dl AST (13-39) U/L ALT (7-52) U/L Alkaline Phosphatase (34-104) U/L Troponin I High Sens (0-14) pg/ml B-Natriuretic Peptide (0-100) pg/ml Total Protein (6.0-8.3) gm/dl Albumin (3.4-5.0) gm/dl Globulin (2.5-4.0) gm/dl Albumin/Globulin Ratio (0.9-2) Triglycerides (0-150) mg/dl Procalcitonin (0-0.5) ng/ml TSH (0.300-4.500) uIu/ml Random Cortisol mcg/dl Urine Color Urine Appearance (Clear) Urine pH (4.5-7.5) Ur Specific [place] (1.000-1.030) Urine Protein (Negative) Urine Glucose (UA) (Negative) Urine Ketones (Negative) Urine Blood (Negative) Urine Nitrite (Negative) Urine Bilirubin (Negative) Urine Urobilinogen (Negative) Ur Leukocyte Esterase (Negative) Urine WBC (Auto) (0-5) /hpf Urine RBC (Auto) (0-2) /hpf U Hyaline Cast (Auto) (0-2) /lpf U Epithel Cells (Auto) (0-2) /hpf Urine Bacteria (Auto) (None Seen) Urine Osmolality (500-800) mOsm/kg Ur Random Creatinine mg/dl Ur Random Sodium mmol/L Ur Random Potassium mmol/L Ur Random Chloride mmol/L Nasal Screen MRSA (PCR) (Negative) Urine Opiates Screen (Neg) Ur Methadone, Qual (Neg) Urine Fentanyl Screen (Neg) Urine Barbiturates (Neg) Ur Phencyclidine (PCP) (Neg) U Amphetamin/Meth Scrn (Neg) MDMA (Ecstasy) Screen (Neg) U Benzodiazepines Scrn (Neg) Ur Cocaine Metabolite (Neg) U Marijuana (THC) Screen (Neg) Adenovirus (PCR) (NotDetected) B. pertussis DNA (PCR) (NotDetected) B.parapertussis DNA PCR (NotDetected) C. pneumoniae DNA (PCR) (NotDetected) Coronavirus OC43 (PCR) (NotDetected) Coronavirus HKU1 (PCR) (NotDetected) Coronavirus 229E (PCR) (NotDetected) SARS-CoV-2 (PCR) (NotDetected) Coronavirus NL63 (PCR) (NotDetected) Human Metapneumovir PCR (NotDetected) Influenza Type A (PCR) (NotDetected) Influenza Type B (PCR) (NotDetected) Urine Legionella Ag M. pneumoniae (PCR) (NotDetected) Parainfluenza 1 (PCR) (NotDetected) Parainfluenza 2 (PCR) (NotDetected) Parainfluenza 3 (PCR) (NotDetected) Parainfluenza 4 (PCR) (NotDetected) RSV (PCR) (NotDetected) Entero/Rhino (PCR) (NotDetected) Blood Type A Positive Antibody Screen NEGATIVE Crossmatch See Detail 12/09/23 12/08/23 12/08/23 Range/Units 00:15 21:46 20:43 WBC (4.8-10.8) K/ul RBC (4.20-5.40) M/uL Hgb (12.0-16.0) g/dl Hct (37.0-47.0) % MCV (80.0-100.0) fL MCH (25.0-34.0) pg MCHC (32.0-36.0) g/dL RDW Std Deviation (36.4-46.3) fL RDW Coeff of Mike (11.5-14.5) % Plt Count (130-400) K/uL MPV (9.4-12.4) fL Immature Gran % (Auto) % Neut % (Auto) % Lymph % (Auto) % [place] % (Auto) % Eos % (Auto) % Baso % (Auto) % Neut # (Auto) (1.40-6.50) K/uL Lymph # (Auto) (1.20-3.40) K/uL [place] # (Auto) (0.11-0.59) K/uL Eos # (Auto) (0.00-0.50) K/uL Baso # (Auto) (0.00-0.20) K/uL Immature Gran # (Auto) (0.01-0.20) K/uL Absolute Nucleated RBC (0.00-0.12) K/uL Nucleated RBC % (auto) % Toxic Vacuolation Polychromasia Hypochromasia Anisocytosis Target Cells Echinocytes Acanthocytes (Spur) PT (9.0-12.0) Seconds INR (0.9-1.1) ABG pH (7.35-7.45) ABG pCO2 (35-46) mmHg ABG pO2 (80-95) mmHg ABG HCO3 (19-24) mmol/L ABG O2 Saturation (90-95) % ABG Base Excess (-9-1.8) mEq/L Harshal Test (Pos) VBG pH (7.36-7.41) VBG pCO2 (38-50) mmHg VBG pO2 mmHg VBG HCO3 mmol/L VBG O2 Saturation % VBG Base Excess mEq/L Oxygen Given Sodium (136-145) mmol/L Potassium (3.5-5.1) mmol/L Chloride (98-107) mmol/L Carbon Dioxide (21-32) mmol/L Anion Gap (3-11) BUN (6-23) mg/dl Creatinine (0.6-1.2) mg/dl Est Cr Clr Drug Dosing ml/min Est GFR ( Amer) ml/min Est GFR (Non-Af Amer) ml/min BUN/Creatinine Ratio (10-20) Glucose (70-99(Fasting)) mg/dl POC Glucose (70-99) mg/dl POC Glucose (other) 148 H 138 H 235 H (70-99) mg/dl Fasting Glucose (70-99) mg/dl Estimat Average Glucose mg/dl Hemoglobin A1c (4.5-5.6) % Osmolality (280-300) mOsm/kg Lactate (0.4-2.0) mmol/L Calcium (8.6-10.3) mg/dl Phosphorus (2.5-4.9) mg/dl Magnesium (1.7-2.4) mg/dl Total Bilirubin (0.2-1.0) mg/dl Direct Bilirubin (0-0.2) mg/dl AST (13-39) U/L ALT (7-52) U/L Alkaline Phosphatase (34-104) U/L Troponin I High Sens (0-14) pg/ml B-Natriuretic Peptide (0-100) pg/ml Total Protein (6.0-8.3) gm/dl Albumin (3.4-5.0) gm/dl Globulin (2.5-4.0) gm/dl Albumin/Globulin Ratio (0.9-2) Triglycerides (0-150) mg/dl Procalcitonin (0-0.5) ng/ml TSH (0.300-4.500) uIu/ml Random Cortisol mcg/dl Urine Color Urine Appearance (Clear) Urine pH (4.5-7.5) Ur Specific [place] (1.000-1.030) Urine Protein (Negative) Urine Glucose (UA) (Negative) Urine Ketones (Negative) Urine Blood (Negative) Urine Nitrite (Negative) Urine Bilirubin (Negative) Urine Urobilinogen (Negative) Ur Leukocyte Esterase (Negative) Urine WBC (Auto) (0-5) /hpf Urine RBC (Auto) (0-2) /hpf U Hyaline Cast (Auto) (0-2) /lpf U Epithel Cells (Auto) (0-2) /hpf Urine Bacteria (Auto) (None Seen) Urine Osmolality (500-800) mOsm/kg Ur Random Creatinine mg/dl Ur Random Sodium mmol/L Ur Random Potassium mmol/L Ur Random Chloride mmol/L Nasal Screen MRSA (PCR) (Negative) Urine Opiates Screen (Neg) Ur Methadone, Qual (Neg) Urine Fentanyl Screen (Neg) Urine Barbiturates (Neg) Ur Phencyclidine (PCP) (Neg) U Amphetamin/Meth Scrn (Neg) MDMA (Ecstasy) Screen (Neg) U Benzodiazepines Scrn (Neg) Ur Cocaine Metabolite (Neg) U Marijuana (THC) Screen (Neg) Adenovirus (PCR) (NotDetected) B. pertussis DNA (PCR) (NotDetected) B.parapertussis DNA PCR (NotDetected) C. pneumoniae DNA (PCR) (NotDetected) Coronavirus OC43 (PCR) (NotDetected) Coronavirus HKU1 (PCR) (NotDetected) Coronavirus 229E (PCR) (NotDetected) SARS-CoV-2 (PCR) (NotDetected) Coronavirus NL63 (PCR) (NotDetected) Human Metapneumovir PCR (NotDetected) Influenza Type A (PCR) (NotDetected) Influenza Type B (PCR) (NotDetected) Urine Legionella Ag M. pneumoniae (PCR) (NotDetected) Parainfluenza 1 (PCR) (NotDetected) Parainfluenza 2 (PCR) (NotDetected) Parainfluenza 3 (PCR) (NotDetected) Parainfluenza 4 (PCR) (NotDetected) RSV (PCR) (NotDetected) Entero/Rhino (PCR) (NotDetected) Blood Type Antibody Screen Crossmatch 12/08/23 12/08/23 12/08/23 Range/Units 17:17 15:10 12:19 WBC 31.57 H* (4.8-10.8) K/ul RBC 2.65 L (4.20-5.40) M/uL Hgb 7.8 L (12.0-16.0) g/dl Hct 23.2 L (37.0-47.0) % MCV 87.5 (80.0-100.0) fL MCH 29.4 (25.0-34.0) pg MCHC 33.6 (32.0-36.0) g/dL RDW Std Deviation 58.1 H (36.4-46.3) fL RDW Coeff of Mike 18.1 H (11.5-14.5) % Plt Count 261 (130-400) K/uL MPV 12.8 H (9.4-12.4) fL Immature Gran % (Auto) % Neut % (Auto) % Lymph % (Auto) % [place] % (Auto) % Eos % (Auto) % Baso % (Auto) % Neut # (Auto) (1.40-6.50) K/uL Lymph # (Auto) (1.20-3.40) K/uL [place] # (Auto) (0.11-0.59) K/uL Eos # (Auto) (0.00-0.50) K/uL Baso # (Auto) (0.00-0.20) K/uL Immature Gran # (Auto) (0.01-0.20) K/uL Absolute Nucleated RBC 0.03 (0.00-0.12) K/uL Nucleated RBC % (auto) 0.1 % Toxic Vacuolation Polychromasia Hypochromasia Anisocytosis Target Cells Echinocytes Acanthocytes (Spur) PT (9.0-12.0) Seconds INR (0.9-1.1) ABG pH (7.35-7.45) ABG pCO2 (35-46) mmHg ABG pO2 (80-95) mmHg ABG HCO3 (19-24) mmol/L ABG O2 Saturation (90-95) % ABG Base Excess (-9-1.8) mEq/L Harshal Test (Pos) VBG pH (7.36-7.41) VBG pCO2 (38-50) mmHg VBG pO2 mmHg VBG HCO3 mmol/L VBG O2 Saturation % VBG Base Excess mEq/L Oxygen Given Sodium 139 (136-145) mmol/L Potassium 4.0 (3.5-5.1) mmol/L Chloride 109 H (98-107) mmol/L Carbon Dioxide 21 (21-32) mmol/L Anion Gap 9 (3-11) BUN 32 H (6-23) mg/dl Creatinine 1.46 H (0.6-1.2) mg/dl Est Cr Clr Drug Dosing 24.9 ml/min Est GFR ( Amer) 44.9 ml/min Est GFR (Non-Af Amer) 38.7 ml/min BUN/Creatinine Ratio 21.9 H (10-20) Glucose 136 H (70-99(Fasting)) mg/dl POC Glucose (70-99) mg/dl POC Glucose (other) 132 H 149 H (70-99) mg/dl Fasting Glucose (70-99) mg/dl Estimat Average Glucose mg/dl Hemoglobin A1c (4.5-5.6) % Osmolality (280-300) mOsm/kg Lactate (0.4-2.0) mmol/L Calcium 8.0 L (8.6-10.3) mg/dl Phosphorus 2.8 (2.5-4.9) mg/dl Magnesium 2.3 (1.7-2.4) mg/dl Total Bilirubin 0.3 (0.2-1.0) mg/dl Direct Bilirubin (0-0.2) mg/dl AST 13 (13-39) U/L ALT (7-52) U/L Alkaline Phosphatase 130 H (34-104) U/L Troponin I High Sens (0-14) pg/ml B-Natriuretic Peptide (0-100) pg/ml Total Protein (6.0-8.3) gm/dl Albumin (3.4-5.0) gm/dl Globulin (2.5-4.0) gm/dl Albumin/Globulin Ratio (0.9-2) Triglycerides (0-150) mg/dl Procalcitonin (0-0.5) ng/ml TSH (0.300-4.500) uIu/ml Random Cortisol mcg/dl Urine Color Urine Appearance (Clear) Urine pH (4.5-7.5) Ur Specific [place] (1.000-1.030) Urine Protein (Negative) Urine Glucose (UA) (Negative) Urine Ketones (Negative) Urine Blood (Negative) Urine Nitrite (Negative) Urine Bilirubin (Negative) Urine Urobilinogen (Negative) Ur Leukocyte Esterase (Negative) Urine WBC (Auto) (0-5) /hpf Urine RBC (Auto) (0-2) /hpf U Hyaline Cast (Auto) (0-2) /lpf U Epithel Cells (Auto) (0-2) /hpf Urine Bacteria (Auto) (None Seen) Urine Osmolality (500-800) mOsm/kg Ur Random Creatinine mg/dl Ur Random Sodium mmol/L Ur Random Potassium mmol/L Ur Random Chloride mmol/L Nasal Screen MRSA (PCR) (Negative) Urine Opiates Screen (Neg) Ur Methadone, Qual (Neg) Urine Fentanyl Screen (Neg) Urine Barbiturates (Neg) Ur Phencyclidine (PCP) (Neg) U Amphetamin/Meth Scrn (Neg) MDMA (Ecstasy) Screen (Neg) U Benzodiazepines Scrn (Neg) Ur Cocaine Metabolite (Neg) U Marijuana (THC) Screen (Neg) Adenovirus (PCR) (NotDetected) B. pertussis DNA (PCR) (NotDetected) B.parapertussis DNA PCR (NotDetected) C. pneumoniae DNA (PCR) (NotDetected) Coronavirus OC43 (PCR) (NotDetected) Coronavirus HKU1 (PCR) (NotDetected) Coronavirus 229E (PCR) (NotDetected) SARS-CoV-2 (PCR) (NotDetected) Coronavirus NL63 (PCR) (NotDetected) Human Metapneumovir PCR (NotDetected) Influenza Type A (PCR) (NotDetected) Influenza Type B (PCR) (NotDetected) Urine Legionella Ag M. pneumoniae (PCR) (NotDetected) Parainfluenza 1 (PCR) (NotDetected) Parainfluenza 2 (PCR) (NotDetected) Parainfluenza 3 (PCR) (NotDetected) Parainfluenza 4 (PCR) (NotDetected) RSV (PCR) (NotDetected) Entero/Rhino (PCR) (NotDetected) Blood Type Antibody Screen Crossmatch 12/08/23 12/08/23 12/08/23 Range/Units 12:05 08:21 08:16 WBC 33.57 H* (4.8-10.8) K/ul RBC 2.66 L (4.20-5.40) M/uL Hgb 7.7 L (12.0-16.0) g/dl Hct 22.8 L (37.0-47.0) % MCV 85.7 (80.0-100.0) fL MCH 28.9 (25.0-34.0) pg MCHC 33.8 (32.0-36.0) g/dL RDW Std Deviation 56.4 H (36.4-46.3) fL RDW Coeff of Mike 17.8 H (11.5-14.5) % Plt Count 259 (130-400) K/uL MPV 12.4 (9.4-12.4) fL Immature Gran % (Auto) 1.3 % Neut % (Auto) 92.3 % Lymph % (Auto) 4.4 % [place] % (Auto) 1.8 % Eos % (Auto) 0.0 % Baso % (Auto) 0.2 % Neut # (Auto) 30.97 H (1.40-6.50) K/uL Lymph # (Auto) 1.49 (1.20-3.40) K/uL [place] # (Auto) 0.59 (0.11-0.59) K/uL Eos # (Auto) 0.01 (0.00-0.50) K/uL Baso # (Auto) 0.06 (0.00-0.20) K/uL Immature Gran # (Auto) 0.45 H (0.01-0.20) K/uL Absolute Nucleated RBC (0.00-0.12) K/uL Nucleated RBC % (auto) % Toxic Vacuolation Polychromasia 1+ Hypochromasia Anisocytosis Present Target Cells Echinocytes Acanthocytes (Spur) PT (9.0-12.0) Seconds INR (0.9-1.1) ABG pH (7.35-7.45) ABG pCO2 (35-46) mmHg ABG pO2 (80-95) mmHg ABG HCO3 (19-24) mmol/L ABG O2 Saturation (90-95) % ABG Base Excess (-9-1.8) mEq/L Harshal Test (Pos) VBG pH (7.36-7.41) VBG pCO2 (38-50) mmHg VBG pO2 mmHg VBG HCO3 mmol/L VBG O2 Saturation % VBG Base Excess mEq/L Oxygen Given Sodium (136-145) mmol/L Potassium (3.5-5.1) mmol/L Chloride (98-107) mmol/L Carbon Dioxide (21-32) mmol/L Anion Gap (3-11) BUN (6-23) mg/dl Creatinine (0.6-1.2) mg/dl Est Cr Clr Drug Dosing ml/min Est GFR ( Amer) ml/min Est GFR (Non-Af Amer) ml/min BUN/Creatinine Ratio (10-20) Glucose (70-99(Fasting)) mg/dl POC Glucose 189 H 151 H (70-99) mg/dl POC Glucose (other) (70-99) mg/dl Fasting Glucose (70-99) mg/dl Estimat Average Glucose mg/dl Hemoglobin A1c (4.5-5.6) % Osmolality (280-300) mOsm/kg Lactate (0.4-2.0) mmol/L Calcium (8.6-10.3) mg/dl Phosphorus (2.5-4.9) mg/dl Magnesium (1.7-2.4) mg/dl Total Bilirubin (0.2-1.0) mg/dl Direct Bilirubin (0-0.2) mg/dl AST (13-39) U/L ALT (7-52) U/L Alkaline Phosphatase (34-104) U/L Troponin I High Sens (0-14) pg/ml B-Natriuretic Peptide (0-100) pg/ml Total Protein (6.0-8.3) gm/dl Albumin (3.4-5.0) gm/dl Globulin (2.5-4.0) gm/dl Albumin/Globulin Ratio (0.9-2) Triglycerides (0-150) mg/dl Procalcitonin (0-0.5) ng/ml TSH (0.300-4.500) uIu/ml Random Cortisol mcg/dl Urine Color Urine Appearance (Clear) Urine pH (4.5-7.5) Ur Specific [place] (1.000-1.030) Urine Protein (Negative) Urine Glucose (UA) (Negative) Urine Ketones (Negative) Urine Blood (Negative) Urine Nitrite (Negative) Urine Bilirubin (Negative) Urine Urobilinogen (Negative) Ur Leukocyte Esterase (Negative) Urine WBC (Auto) (0-5) /hpf Urine RBC (Auto) (0-2) /hpf U Hyaline Cast (Auto) (0-2) /lpf U Epithel Cells (Auto) (0-2) /hpf Urine Bacteria (Auto) (None Seen) Urine Osmolality (500-800) mOsm/kg Ur Random Creatinine mg/dl Ur Random Sodium mmol/L Ur Random Potassium mmol/L Ur Random Chloride mmol/L Nasal Screen MRSA (PCR) (Negative) Urine Opiates Screen (Neg) Ur Methadone, Qual (Neg) Urine Fentanyl Screen (Neg) Urine Barbiturates (Neg) Ur Phencyclidine (PCP) (Neg) U Amphetamin/Meth Scrn (Neg) MDMA (Ecstasy) Screen (Neg) U Benzodiazepines Scrn (Neg) Ur Cocaine Metabolite (Neg) U Marijuana (THC) Screen (Neg) Adenovirus (PCR) (NotDetected) B. pertussis DNA (PCR) (NotDetected) B.parapertussis DNA PCR (NotDetected) C. pneumoniae DNA (PCR) (NotDetected) Coronavirus OC43 (PCR) (NotDetected) Coronavirus HKU1 (PCR) (NotDetected) Coronavirus 229E (PCR) (NotDetected) SARS-CoV-2 (PCR) (NotDetected) Coronavirus NL63 (PCR) (NotDetected) Human Metapneumovir PCR (NotDetected) Influenza Type A (PCR) (NotDetected) Influenza Type B (PCR) (NotDetected) Urine Legionella Ag M. pneumoniae (PCR) (NotDetected) Parainfluenza 1 (PCR) (NotDetected) Parainfluenza 2 (PCR) (NotDetected) Parainfluenza 3 (PCR) (NotDetected) Parainfluenza 4 (PCR) (NotDetected) RSV (PCR) (NotDetected) Entero/Rhino (PCR) (NotDetected) Blood Type Antibody Screen Crossmatch 12/08/23 12/08/23 12/07/23 Range/Units 04:48 03:31 Unknown WBC (4.8-10.8) K/ul RBC (4.20-5.40) M/uL Hgb (12.0-16.0) g/dl Hct (37.0-47.0) % MCV (80.0-100.0) fL MCH (25.0-34.0) pg MCHC (32.0-36.0) g/dL RDW Std Deviation (36.4-46.3) fL RDW Coeff of Mike (11.5-14.5) % Plt Count (130-400) K/uL MPV (9.4-12.4) fL Immature Gran % (Auto) % Neut % (Auto) % Lymph % (Auto) % [place] % (Auto) % Eos % (Auto) % Baso % (Auto) % Neut # (Auto) (1.40-6.50) K/uL Lymph # (Auto) (1.20-3.40) K/uL [place] # (Auto) (0.11-0.59) K/uL Eos # (Auto) (0.00-0.50) K/uL Baso # (Auto) (0.00-0.20) K/uL Immature Gran # (Auto) (0.01-0.20) K/uL Absolute Nucleated RBC (0.00-0.12) K/uL Nucleated RBC % (auto) % Toxic Vacuolation Polychromasia Hypochromasia Anisocytosis Target Cells Echinocytes Acanthocytes (Spur) PT (9.0-12.0) Seconds INR (0.9-1.1) ABG pH (7.35-7.45) ABG pCO2 (35-46) mmHg ABG pO2 (80-95) mmHg ABG HCO3 (19-24) mmol/L ABG O2 Saturation (90-95) % ABG Base Excess (-9-1.8) mEq/L Harshal Test (Pos) VBG pH (7.36-7.41) VBG pCO2 (38-50) mmHg VBG pO2 mmHg VBG HCO3 mmol/L VBG O2 Saturation % VBG Base Excess mEq/L Oxygen Given Sodium 140 D (136-145) mmol/L Potassium 3.7 (3.5-5.1) mmol/L Chloride 113 H (98-107) mmol/L Carbon Dioxide 19 L (21-32) mmol/L Anion Gap 8 (3-11) BUN 34 H (6-23) mg/dl Creatinine 1.50 H (0.6-1.2) mg/dl Est Cr Clr Drug Dosing 24.2 ml/min Est GFR ( Amer) 43.4 ml/min Est GFR (Non-Af Amer) 37.5 ml/min BUN/Creatinine Ratio 22.7 H (10-20) Glucose 143 H (70-99(Fasting)) mg/dl POC Glucose 136 H (70-99) mg/dl POC Glucose (other) (70-99) mg/dl Fasting Glucose (70-99) mg/dl Estimat Average Glucose 126 mg/dl Hemoglobin A1c 6.0 H (4.5-5.6) % Osmolality (280-300) mOsm/kg Lactate (0.4-2.0) mmol/L Calcium 7.9 L (8.6-10.3) mg/dl Phosphorus 3.2 (2.5-4.9) mg/dl Magnesium 2.5 H (1.7-2.4) mg/dl Total Bilirubin (0.2-1.0) mg/dl Direct Bilirubin (0-0.2) mg/dl AST (13-39) U/L ALT (7-52) U/L Alkaline Phosphatase (34-104) U/L Troponin I High Sens (0-14) pg/ml B-Natriuretic Peptide (0-100) pg/ml Total Protein (6.0-8.3) gm/dl Albumin (3.4-5.0) gm/dl Globulin (2.5-4.0) gm/dl Albumin/Globulin Ratio (0.9-2) Triglycerides (0-150) mg/dl Procalcitonin (0-0.5) ng/ml TSH (0.300-4.500) uIu/ml Random Cortisol mcg/dl Urine Color Yellow Urine Appearance Clear (Clear) Urine pH 5.5 (4.5-7.5) Ur Specific [place] 1.039 H (1.000-1.030) Urine Protein 2+ H (Negative) Urine Glucose (UA) Negative (Negative) Urine Ketones Negative (Negative) Urine Blood Negative (Negative) Urine Nitrite Negative (Negative) Urine Bilirubin Negative (Negative) Urine Urobilinogen Negative (Negative) Ur Leukocyte Esterase Negative (Negative) Urine WBC (Auto) 11-20 H (0-5) /hpf Urine RBC (Auto) 0-2 (0-2) /hpf U Hyaline Cast (Auto) 3-5 H (0-2) /lpf U Epithel Cells (Auto) 0-2 (0-2) /hpf Urine Bacteria (Auto) None Seen (None Seen) Urine Osmolality (500-800) mOsm/kg Ur Random Creatinine mg/dl Ur Random Sodium mmol/L Ur Random Potassium mmol/L Ur Random Chloride mmol/L Nasal Screen MRSA (PCR) (Negative) Urine Opiates Screen (Neg) Ur Methadone, Qual (Neg) Urine Fentanyl Screen (Neg) Urine Barbiturates (Neg) Ur Phencyclidine (PCP) (Neg) U Amphetamin/Meth Scrn (Neg) MDMA (Ecstasy) Screen (Neg) U Benzodiazepines Scrn (Neg) Ur Cocaine Metabolite (Neg) U Marijuana (THC) Screen (Neg) Adenovirus (PCR) (NotDetected) B. pertussis DNA (PCR) (NotDetected) B.parapertussis DNA PCR (NotDetected) C. pneumoniae DNA (PCR) (NotDetected) Coronavirus OC43 (PCR) (NotDetected) Coronavirus HKU1 (PCR) (NotDetected) Coronavirus 229E (PCR) (NotDetected) SARS-CoV-2 (PCR) (NotDetected) Coronavirus NL63 (PCR) (NotDetected) Human Metapneumovir PCR (NotDetected) Influenza Type A (PCR) (NotDetected) Influenza Type B (PCR) (NotDetected) Urine Legionella Ag M. pneumoniae (PCR) (NotDetected) Parainfluenza 1 (PCR) (NotDetected) Parainfluenza 2 (PCR) (NotDetected) Parainfluenza 3 (PCR) (NotDetected) Parainfluenza 4 (PCR) (NotDetected) RSV (PCR) (NotDetected) Entero/Rhino (PCR) (NotDetected) Blood Type Antibody Screen Crossmatch 12/07/23 12/07/23 12/07/23 Range/Units 23:29 21:28 20:12 WBC (4.8-10.8) K/ul RBC (4.20-5.40) M/uL Hgb (12.0-16.0) g/dl Hct (37.0-47.0) % MCV (80.0-100.0) fL MCH (25.0-34.0) pg MCHC (32.0-36.0) g/dL RDW Std Deviation (36.4-46.3) fL RDW Coeff of Mike (11.5-14.5) % Plt Count (130-400) K/uL MPV (9.4-12.4) fL Immature Gran % (Auto) % Neut % (Auto) % Lymph % (Auto) % [place] % (Auto) % Eos % (Auto) % Baso % (Auto) % Neut # (Auto) (1.40-6.50) K/uL Lymph # (Auto) (1.20-3.40) K/uL [place] # (Auto) (0.11-0.59) K/uL Eos # (Auto) (0.00-0.50) K/uL Baso # (Auto) (0.00-0.20) K/uL Immature Gran # (Auto) (0.01-0.20) K/uL Absolute Nucleated RBC (0.00-0.12) K/uL Nucleated RBC % (auto) % Toxic Vacuolation Polychromasia Hypochromasia Anisocytosis Target Cells Echinocytes Acanthocytes (Spur) PT (9.0-12.0) Seconds INR (0.9-1.1) ABG pH (7.35-7.45) ABG pCO2 (35-46) mmHg ABG pO2 (80-95) mmHg ABG HCO3 (19-24) mmol/L ABG O2 Saturation (90-95) % ABG Base Excess (-9-1.8) mEq/L Harshal Test (Pos) VBG pH 7.28 L (7.36-7.41) VBG pCO2 29 L (38-50) mmHg VBG pO2 42 mmHg VBG HCO3 14 mmol/L VBG O2 Saturation 69.2 % VBG Base Excess -11.7 mEq/L Oxygen Given Sodium 130 L (136-145) mmol/L Potassium 4.0 D 7.3 H* D (3.5-5.1) mmol/L Chloride 113 H (98-107) mmol/L Carbon Dioxide 15 L (21-32) mmol/L Anion Gap 2 L (3-11) BUN 35 H (6-23) mg/dl Creatinine 1.39 H (0.6-1.2) mg/dl Est Cr Clr Drug Dosing 24.7 ml/min Est GFR ( Amer) 47.6 ml/min Est GFR (Non-Af Amer) 41.1 ml/min BUN/Creatinine Ratio (10-20) Glucose (70-99(Fasting)) mg/dl POC Glucose 194 H (70-99) mg/dl POC Glucose (other) (70-99) mg/dl Fasting Glucose 225 H (70-99) mg/dl Estimat Average Glucose mg/dl Hemoglobin A1c (4.5-5.6) % Osmolality (280-300) mOsm/kg Lactate (0.4-2.0) mmol/L Calcium 7.3 L (8.6-10.3) mg/dl Phosphorus 2.7 D (2.5-4.9) mg/dl Magnesium 4.4 H (1.7-2.4) mg/dl Total Bilirubin (0.2-1.0) mg/dl Direct Bilirubin (0-0.2) mg/dl AST (13-39) U/L ALT (7-52) U/L Alkaline Phosphatase (34-104) U/L Troponin I High Sens (0-14) pg/ml B-Natriuretic Peptide (0-100) pg/ml Total Protein (6.0-8.3) gm/dl Albumin (3.4-5.0) gm/dl Globulin (2.5-4.0) gm/dl Albumin/Globulin Ratio (0.9-2) Triglycerides (0-150) mg/dl Procalcitonin (0-0.5) ng/ml TSH (0.300-4.500) uIu/ml Random Cortisol mcg/dl Urine Color Urine Appearance (Clear) Urine pH (4.5-7.5) Ur Specific [place] (1.000-1.030) Urine Protein (Negative) Urine Glucose (UA) (Negative) Urine Ketones (Negative) Urine Blood (Negative) Urine Nitrite (Negative) Urine Bilirubin (Negative) Urine Urobilinogen (Negative) Ur Leukocyte Esterase (Negative) Urine WBC (Auto) (0-5) /hpf Urine RBC (Auto) (0-2) /hpf U Hyaline Cast (Auto) (0-2) /lpf U Epithel Cells (Auto) (0-2) /hpf Urine Bacteria (Auto) (None Seen) Urine Osmolality (500-800) mOsm/kg Ur Random Creatinine mg/dl Ur Random Sodium mmol/L Ur Random Potassium mmol/L Ur Random Chloride mmol/L Nasal Screen MRSA (PCR) (Negative) Urine Opiates Screen (Neg) Ur Methadone, Qual (Neg) Urine Fentanyl Screen (Neg) Urine Barbiturates (Neg) Ur Phencyclidine (PCP) (Neg) U Amphetamin/Meth Scrn (Neg) MDMA (Ecstasy) Screen (Neg) U Benzodiazepines Scrn (Neg) Ur Cocaine Metabolite (Neg) U Marijuana (THC) Screen (Neg) Adenovirus (PCR) (NotDetected) B. pertussis DNA (PCR) (NotDetected) B.parapertussis DNA PCR (NotDetected) C. pneumoniae DNA (PCR) (NotDetected) Coronavirus OC43 (PCR) (NotDetected) Coronavirus HKU1 (PCR) (NotDetected) Coronavirus 229E (PCR) (NotDetected) SARS-CoV-2 (PCR) (NotDetected) Coronavirus NL63 (PCR) (NotDetected) Human Metapneumovir PCR (NotDetected) Influenza Type A (PCR) (NotDetected) Influenza Type B (PCR) (NotDetected) Urine Legionella Ag M. pneumoniae (PCR) (NotDetected) Parainfluenza 1 (PCR) (NotDetected) Parainfluenza 2 (PCR) (NotDetected) Parainfluenza 3 (PCR) (NotDetected) Parainfluenza 4 (PCR) (NotDetected) RSV (PCR) (NotDetected) Entero/Rhino (PCR) (NotDetected) Blood Type Antibody Screen Crossmatch 12/07/23 12/07/23 12/07/23 Range/Units 20:03 16:55 15:22 WBC (4.8-10.8) K/ul RBC (4.20-5.40) M/uL Hgb (12.0-16.0) g/dl Hct (37.0-47.0) % MCV (80.0-100.0) fL MCH (25.0-34.0) pg MCHC (32.0-36.0) g/dL RDW Std Deviation (36.4-46.3) fL RDW Coeff of Mike (11.5-14.5) % Plt Count (130-400) K/uL MPV (9.4-12.4) fL Immature Gran % (Auto) % Neut % (Auto) % Lymph % (Auto) % [place] % (Auto) % Eos % (Auto) % Baso % (Auto) % Neut # (Auto) (1.40-6.50) K/uL Lymph # (Auto) (1.20-3.40) K/uL [place] # (Auto) (0.11-0.59) K/uL Eos # (Auto) (0.00-0.50) K/uL Baso # (Auto) (0.00-0.20) K/uL Immature Gran # (Auto) (0.01-0.20) K/uL Absolute Nucleated RBC (0.00-0.12) K/uL Nucleated RBC % (auto) % Toxic Vacuolation Polychromasia Hypochromasia Anisocytosis Target Cells Echinocytes Acanthocytes (Spur) PT (9.0-12.0) Seconds INR (0.9-1.1) ABG pH (7.35-7.45) ABG pCO2 (35-46) mmHg ABG pO2 (80-95) mmHg ABG HCO3 (19-24) mmol/L ABG O2 Saturation (90-95) % ABG Base Excess (-9-1.8) mEq/L Harshal Test (Pos) VBG pH (7.36-7.41) VBG pCO2 (38-50) mmHg VBG pO2 mmHg VBG HCO3 mmol/L VBG O2 Saturation % VBG Base Excess mEq/L Oxygen Given Sodium (136-145) mmol/L Potassium (3.5-5.1) mmol/L Chloride (98-107) mmol/L Carbon Dioxide (21-32) mmol/L Anion Gap (3-11) BUN (6-23) mg/dl Creatinine (0.6-1.2) mg/dl Est Cr Clr Drug Dosing ml/min Est GFR ( Amer) ml/min Est GFR (Non-Af Amer) ml/min BUN/Creatinine Ratio (10-20) Glucose (70-99(Fasting)) mg/dl POC Glucose 158 H 147 H 150 H (70-99) mg/dl POC Glucose (other) (70-99) mg/dl Fasting Glucose (70-99) mg/dl Estimat Average Glucose mg/dl Hemoglobin A1c (4.5-5.6) % Osmolality (280-300) mOsm/kg Lactate (0.4-2.0) mmol/L Calcium (8.6-10.3) mg/dl Phosphorus (2.5-4.9) mg/dl Magnesium (1.7-2.4) mg/dl Total Bilirubin (0.2-1.0) mg/dl Direct Bilirubin (0-0.2) mg/dl AST (13-39) U/L ALT (7-52) U/L Alkaline Phosphatase (34-104) U/L Troponin I High Sens (0-14) pg/ml B-Natriuretic Peptide (0-100) pg/ml Total Protein (6.0-8.3) gm/dl Albumin (3.4-5.0) gm/dl Globulin (2.5-4.0) gm/dl Albumin/Globulin Ratio (0.9-2) Triglycerides (0-150) mg/dl Procalcitonin (0-0.5) ng/ml TSH (0.300-4.500) uIu/ml Random Cortisol mcg/dl Urine Color Urine Appearance (Clear) Urine pH (4.5-7.5) Ur Specific [place] (1.000-1.030) Urine Protein (Negative) Urine Glucose (UA) (Negative) Urine Ketones (Negative) Urine Blood (Negative) Urine Nitrite (Negative) Urine Bilirubin (Negative) Urine Urobilinogen (Negative) Ur Leukocyte Esterase (Negative) Urine WBC (Auto) (0-5) /hpf Urine RBC (Auto) (0-2) /hpf U Hyaline Cast (Auto) (0-2) /lpf U Epithel Cells (Auto) (0-2) /hpf Urine Bacteria (Auto) (None Seen) Urine Osmolality (500-800) mOsm/kg Ur Random Creatinine mg/dl Ur Random Sodium mmol/L Ur Random Potassium mmol/L Ur Random Chloride mmol/L Nasal Screen MRSA (PCR) (Negative) Urine Opiates Screen (Neg) Ur Methadone, Qual (Neg) Urine Fentanyl Screen (Neg) Urine Barbiturates (Neg) Ur Phencyclidine (PCP) (Neg) U Amphetamin/Meth Scrn (Neg) MDMA (Ecstasy) Screen (Neg) U Benzodiazepines Scrn (Neg) Ur Cocaine Metabolite (Neg) U Marijuana (THC) Screen (Neg) Adenovirus (PCR) (NotDetected) B. pertussis DNA (PCR) (NotDetected) B.parapertussis DNA PCR (NotDetected) C. pneumoniae DNA (PCR) (NotDetected) Coronavirus OC43 (PCR) (NotDetected) Coronavirus HKU1 (PCR) (NotDetected) Coronavirus 229E (PCR) (NotDetected) SARS-CoV-2 (PCR) (NotDetected) Coronavirus NL63 (PCR) (NotDetected) Human Metapneumovir PCR (NotDetected) Influenza Type A (PCR) (NotDetected) Influenza Type B (PCR) (NotDetected) Urine Legionella Ag M. pneumoniae (PCR) (NotDetected) Parainfluenza 1 (PCR) (NotDetected) Parainfluenza 2 (PCR) (NotDetected) Parainfluenza 3 (PCR) (NotDetected) Parainfluenza 4 (PCR) (NotDetected) RSV (PCR) (NotDetected) Entero/Rhino (PCR) (NotDetected) Blood Type Antibody Screen Crossmatch 12/07/23 12/07/23 12/07/23 Range/Units 14:48 11:57 08:00 WBC (4.8-10.8) K/ul RBC (4.20-5.40) M/uL Hgb (12.0-16.0) g/dl Hct (37.0-47.0) % MCV (80.0-100.0) fL MCH (25.0-34.0) pg MCHC (32.0-36.0) g/dL RDW Std Deviation (36.4-46.3) fL RDW Coeff of Mike (11.5-14.5) % Plt Count (130-400) K/uL MPV (9.4-12.4) fL Immature Gran % (Auto) % Neut % (Auto) % Lymph % (Auto) % [place] % (Auto) % Eos % (Auto) % Baso % (Auto) % Neut # (Auto) (1.40-6.50) K/uL Lymph # (Auto) (1.20-3.40) K/uL [place] # (Auto) (0.11-0.59) K/uL Eos # (Auto) (0.00-0.50) K/uL Baso # (Auto) (0.00-0.20) K/uL Immature Gran # (Auto) (0.01-0.20) K/uL Absolute Nucleated RBC (0.00-0.12) K/uL Nucleated RBC % (auto) % Toxic Vacuolation Polychromasia Hypochromasia Anisocytosis Target Cells Echinocytes Acanthocytes (Spur) PT (9.0-12.0) Seconds INR (0.9-1.1) ABG pH (7.35-7.45) ABG pCO2 (35-46) mmHg ABG pO2 (80-95) mmHg ABG HCO3 (19-24) mmol/L ABG O2 Saturation (90-95) % ABG Base Excess (-9-1.8) mEq/L Harshal Test (Pos) VBG pH (7.36-7.41) VBG pCO2 (38-50) mmHg VBG pO2 mmHg VBG HCO3 mmol/L VBG O2 Saturation % VBG Base Excess mEq/L Oxygen Given Sodium 137 (136-145) mmol/L Potassium 3.1 L (3.5-5.1) mmol/L Chloride 112 H (98-107) mmol/L Carbon Dioxide 19 L (21-32) mmol/L Anion Gap 6 (3-11) BUN 38 H (6-23) mg/dl Creatinine 1.46 H (0.6-1.2) mg/dl Est Cr Clr Drug Dosing 23.5 ml/min Est GFR ( Amer) 44.9 ml/min Est GFR (Non-Af Amer) 38.7 ml/min BUN/Creatinine Ratio 26.0 H (10-20) Glucose 354 H* (70-99(Fasting)) mg/dl POC Glucose 205 H (70-99) mg/dl POC Glucose (other) (70-99) mg/dl Fasting Glucose (70-99) mg/dl Estimat Average Glucose mg/dl Hemoglobin A1c (4.5-5.6) % Osmolality 307 H (280-300) mOsm/kg Lactate (0.4-2.0) mmol/L Calcium 7.4 L (8.6-10.3) mg/dl Phosphorus (2.5-4.9) mg/dl Magnesium (1.7-2.4) mg/dl Total Bilirubin (0.2-1.0) mg/dl Direct Bilirubin (0-0.2) mg/dl AST (13-39) U/L ALT (7-52) U/L Alkaline Phosphatase (34-104) U/L Troponin I High Sens (0-14) pg/ml B-Natriuretic Peptide (0-100) pg/ml Total Protein (6.0-8.3) gm/dl Albumin (3.4-5.0) gm/dl Globulin (2.5-4.0) gm/dl Albumin/Globulin Ratio (0.9-2) Triglycerides (0-150) mg/dl Procalcitonin (0-0.5) ng/ml TSH (0.300-4.500) uIu/ml Random Cortisol mcg/dl Urine Color Urine Appearance (Clear) Urine pH (4.5-7.5) Ur Specific [place] (1.000-1.030) Urine Protein (Negative) Urine Glucose (UA) (Negative) Urine Ketones (Negative) Urine Blood (Negative) Urine Nitrite (Negative) Urine Bilirubin (Negative) Urine Urobilinogen (Negative) Ur Leukocyte Esterase (Negative) Urine WBC (Auto) (0-5) /hpf Urine RBC (Auto) (0-2) /hpf U Hyaline Cast (Auto) (0-2) /lpf U Epithel Cells (Auto) (0-2) /hpf Urine Bacteria (Auto) (None Seen) Urine Osmolality (500-800) mOsm/kg Ur Random Creatinine mg/dl Ur Random Sodium mmol/L Ur Random Potassium mmol/L Ur Random Chloride mmol/L Nasal Screen MRSA (PCR) (Negative) Urine Opiates Screen (Neg) Ur Methadone, Qual (Neg) Urine Fentanyl Screen (Neg) Urine Barbiturates (Neg) Ur Phencyclidine (PCP) (Neg) U Amphetamin/Meth Scrn (Neg) MDMA (Ecstasy) Screen (Neg) U Benzodiazepines Scrn (Neg) Ur Cocaine Metabolite (Neg) U Marijuana (THC) Screen (Neg) Adenovirus (PCR) (NotDetected) B. pertussis DNA (PCR) (NotDetected) B.parapertussis DNA PCR (NotDetected) C. pneumoniae DNA (PCR) (NotDetected) Coronavirus OC43 (PCR) (NotDetected) Coronavirus HKU1 (PCR) (NotDetected) Coronavirus 229E (PCR) (NotDetected) SARS-CoV-2 (PCR) (NotDetected) Coronavirus NL63 (PCR) (NotDetected) Human Metapneumovir PCR (NotDetected) Influenza Type A (PCR) (NotDetected) Influenza Type B (PCR) (NotDetected) Urine Legionella Ag M. pneumoniae (PCR) (NotDetected) Parainfluenza 1 (PCR) (NotDetected) Parainfluenza 2 (PCR) (NotDetected) Parainfluenza 3 (PCR) (NotDetected) Parainfluenza 4 (PCR) (NotDetected) RSV (PCR) (NotDetected) Entero/Rhino (PCR) (NotDetected) Blood Type Antibody Screen Crossmatch 12/07/23 12/07/23 12/07/23 Range/Units 07:26 06:52 05:32 WBC 39.08 H* (4.8-10.8) K/ul RBC 3.00 L (4.20-5.40) M/uL Hgb 8.7 L (12.0-16.0) g/dl Hct 27.0 L (37.0-47.0) % MCV 90.0 (80.0-100.0) fL MCH 29.0 (25.0-34.0) pg MCHC 32.2 (32.0-36.0) g/dL RDW Std Deviation 61.5 H (36.4-46.3) fL RDW Coeff of Mike 18.6 H (11.5-14.5) % Plt Count 278 (130-400) K/uL MPV 12.4 (9.4-12.4) fL Immature Gran % (Auto) 1.8 % Neut % (Auto) 94.1 % Lymph % (Auto) 2.7 % [place] % (Auto) 1.1 % Eos % (Auto) 0.0 % Baso % (Auto) 0.3 % Neut # (Auto) 36.79 H (1.40-6.50) K/uL Lymph # (Auto) 1.06 L (1.20-3.40) K/uL [place] # (Auto) 0.42 (0.11-0.59) K/uL Eos # (Auto) 0.00 (0.00-0.50) K/uL Baso # (Auto) 0.12 (0.00-0.20) K/uL Immature Gran # (Auto) 0.69 H (0.01-0.20) K/uL Absolute Nucleated RBC (0.00-0.12) K/uL Nucleated RBC % (auto) % Toxic Vacuolation Polychromasia 1+ Hypochromasia Anisocytosis Target Cells Echinocytes 2+ Acanthocytes (Spur) PT (9.0-12.0) Seconds INR (0.9-1.1) ABG pH (7.35-7.45) ABG pCO2 (35-46) mmHg ABG pO2 (80-95) mmHg ABG HCO3 (19-24) mmol/L ABG O2 Saturation (90-95) % ABG Base Excess (-9-1.8) mEq/L Harshal Test (Pos) VBG pH 7.14 L (7.36-7.41) VBG pCO2 26 L (38-50) mmHg VBG pO2 46 mmHg VBG HCO3 9 mmol/L VBG O2 Saturation 77.5 % VBG Base Excess -18.6 mEq/L Oxygen Given Sodium 143 (136-145) mmol/L Potassium 3.5 (3.5-5.1) mmol/L Chloride 122 H (98-107) mmol/L Carbon Dioxide 9 L* (21-32) mmol/L Anion Gap 12 H (3-11) BUN 42 H (6-23) mg/dl Creatinine 1.63 H (0.6-1.2) mg/dl Est Cr Clr Drug Dosing 21.0 ml/min Est GFR ( Amer) 39.3 ml/min Est GFR (Non-Af Amer) 33.9 ml/min BUN/Creatinine Ratio 25.8 H (10-20) Glucose 127 H (70-99(Fasting)) mg/dl POC Glucose 109 H (70-99) mg/dl POC Glucose (other) (70-99) mg/dl Fasting Glucose (70-99) mg/dl Estimat Average Glucose mg/dl Hemoglobin A1c (4.5-5.6) % Osmolality (280-300) mOsm/kg Lactate 0.6 (0.4-2.0) mmol/L Calcium 7.6 L (8.6-10.3) mg/dl Phosphorus 4.1 (2.5-4.9) mg/dl Magnesium 1.6 L (1.7-2.4) mg/dl Total Bilirubin 0.2 (0.2-1.0) mg/dl Direct Bilirubin (0-0.2) mg/dl AST 22 (13-39) U/L ALT 9 (7-52) U/L Alkaline Phosphatase 157 H (34-104) U/L Troponin I High Sens (0-14) pg/ml B-Natriuretic Peptide (0-100) pg/ml Total Protein 4.8 L D (6.0-8.3) gm/dl Albumin 2.4 L (3.4-5.0) gm/dl Globulin 2.4 L (2.5-4.0) gm/dl Albumin/Globulin Ratio 1.0 (0.9-2) Triglycerides 167 H (0-150) mg/dl Procalcitonin (0-0.5) ng/ml TSH (0.300-4.500) uIu/ml Random Cortisol mcg/dl Urine Color Urine Appearance (Clear) Urine pH (4.5-7.5) Ur Specific [place] (1.000-1.030) Urine Protein (Negative) Urine Glucose (UA) (Negative) Urine Ketones (Negative) Urine Blood (Negative) Urine Nitrite (Negative) Urine Bilirubin (Negative) Urine Urobilinogen (Negative) Ur Leukocyte Esterase (Negative) Urine WBC (Auto) (0-5) /hpf Urine RBC (Auto) (0-2) /hpf U Hyaline Cast (Auto) (0-2) /lpf U Epithel Cells (Auto) (0-2) /hpf Urine Bacteria (Auto) (None Seen) Urine Osmolality (500-800) mOsm/kg Ur Random Creatinine mg/dl Ur Random Sodium mmol/L Ur Random Potassium mmol/L Ur Random Chloride mmol/L Nasal Screen MRSA (PCR) (Negative) Urine Opiates Screen (Neg) Ur Methadone, Qual (Neg) Urine Fentanyl Screen (Neg) Urine Barbiturates (Neg) Ur Phencyclidine (PCP) (Neg) U Amphetamin/Meth Scrn (Neg) MDMA (Ecstasy) Screen (Neg) U Benzodiazepines Scrn (Neg) Ur Cocaine Metabolite (Neg) U Marijuana (THC) Screen (Neg) Adenovirus (PCR) (NotDetected) B. pertussis DNA (PCR) (NotDetected) B.parapertussis DNA PCR (NotDetected) C. pneumoniae DNA (PCR) (NotDetected) Coronavirus OC43 (PCR) (NotDetected) Coronavirus HKU1 (PCR) (NotDetected) Coronavirus 229E (PCR) (NotDetected) SARS-CoV-2 (PCR) (NotDetected) Coronavirus NL63 (PCR) (NotDetected) Human Metapneumovir PCR (NotDetected) Influenza Type A (PCR) (NotDetected) Influenza Type B (PCR) (NotDetected) Urine Legionella Ag M. pneumoniae (PCR) (NotDetected) Parainfluenza 1 (PCR) (NotDetected) Parainfluenza 2 (PCR) (NotDetected) Parainfluenza 3 (PCR) (NotDetected) Parainfluenza 4 (PCR) (NotDetected) RSV (PCR) (NotDetected) Entero/Rhino (PCR) (NotDetected) Blood Type Antibody Screen Crossmatch 12/06/23 12/06/23 12/06/23 Range/Units Unknown 20:34 20:16 WBC (4.8-10.8) K/ul RBC (4.20-5.40) M/uL Hgb (12.0-16.0) g/dl Hct (37.0-47.0) % MCV (80.0-100.0) fL MCH (25.0-34.0) pg MCHC (32.0-36.0) g/dL RDW Std Deviation (36.4-46.3) fL RDW Coeff of Mike (11.5-14.5) % Plt Count (130-400) K/uL MPV (9.4-12.4) fL Immature Gran % (Auto) % Neut % (Auto) % Lymph % (Auto) % [place] % (Auto) % Eos % (Auto) % Baso % (Auto) % Neut # (Auto) (1.40-6.50) K/uL Lymph # (Auto) (1.20-3.40) K/uL [place] # (Auto) (0.11-0.59) K/uL Eos # (Auto) (0.00-0.50) K/uL Baso # (Auto) (0.00-0.20) K/uL Immature Gran # (Auto) (0.01-0.20) K/uL Absolute Nucleated RBC (0.00-0.12) K/uL Nucleated RBC % (auto) % Toxic Vacuolation Polychromasia Hypochromasia Anisocytosis Target Cells Echinocytes Acanthocytes (Spur) PT (9.0-12.0) Seconds INR (0.9-1.1) ABG pH (7.35-7.45) ABG pCO2 (35-46) mmHg ABG pO2 (80-95) mmHg ABG HCO3 (19-24) mmol/L ABG O2 Saturation (90-95) % ABG Base Excess (-9-1.8) mEq/L Harshal Test (Pos) VBG pH (7.36-7.41) VBG pCO2 (38-50) mmHg VBG pO2 mmHg VBG HCO3 mmol/L VBG O2 Saturation % VBG Base Excess mEq/L Oxygen Given Sodium 140 (136-145) mmol/L Potassium 3.3 L (3.5-5.1) mmol/L Chloride 121 H (98-107) mmol/L Carbon Dioxide 10 L (21-32) mmol/L Anion Gap 9 (3-11) BUN 46 H (6-23) mg/dl Creatinine 1.74 H D (0.6-1.2) mg/dl Est Cr Clr Drug Dosing 21.2 ml/min Est GFR ( Amer) 36.3 ml/min Est GFR (Non-Af Amer) 31.3 ml/min BUN/Creatinine Ratio 26.4 H (10-20) Glucose 142 H (70-99(Fasting)) mg/dl POC Glucose 100 H (70-99) mg/dl POC Glucose (other) (70-99) mg/dl Fasting Glucose (70-99) mg/dl Estimat Average Glucose mg/dl Hemoglobin A1c (4.5-5.6) % Osmolality (280-300) mOsm/kg Lactate (0.4-2.0) mmol/L Calcium 7.5 L (8.6-10.3) mg/dl Phosphorus (2.5-4.9) mg/dl Magnesium (1.7-2.4) mg/dl Total Bilirubin (0.2-1.0) mg/dl Direct Bilirubin (0-0.2) mg/dl AST (13-39) U/L ALT (7-52) U/L Alkaline Phosphatase (34-104) U/L Troponin I High Sens (0-14) pg/ml B-Natriuretic Peptide (0-100) pg/ml Total Protein (6.0-8.3) gm/dl Albumin (3.4-5.0) gm/dl Globulin (2.5-4.0) gm/dl Albumin/Globulin Ratio (0.9-2) Triglycerides (0-150) mg/dl Procalcitonin (0-0.5) ng/ml TSH (0.300-4.500) uIu/ml Random Cortisol mcg/dl Urine Color Urine Appearance (Clear) Urine pH (4.5-7.5) Ur Specific [place] (1.000-1.030) Urine Protein (Negative) Urine Glucose (UA) (Negative) Urine Ketones (Negative) Urine Blood (Negative) Urine Nitrite (Negative) Urine Bilirubin (Negative) Urine Urobilinogen (Negative) Ur Leukocyte Esterase (Negative) Urine WBC (Auto) (0-5) /hpf Urine RBC (Auto) (0-2) /hpf U Hyaline Cast (Auto) (0-2) /lpf U Epithel Cells (Auto) (0-2) /hpf Urine Bacteria (Auto) (None Seen) Urine Osmolality (500-800) mOsm/kg Ur Random Creatinine mg/dl Ur Random Sodium mmol/L Ur Random Potassium mmol/L Ur Random Chloride mmol/L Nasal Screen MRSA (PCR) Negative (Negative) Urine Opiates Screen (Neg) Ur Methadone, Qual (Neg) Urine Fentanyl Screen (Neg) Urine Barbiturates (Neg) Ur Phencyclidine (PCP) (Neg) U Amphetamin/Meth Scrn (Neg) MDMA (Ecstasy) Screen (Neg) U Benzodiazepines Scrn (Neg) Ur Cocaine Metabolite (Neg) U Marijuana (THC) Screen (Neg) Adenovirus (PCR) (NotDetected) B. pertussis DNA (PCR) (NotDetected) B.parapertussis DNA PCR (NotDetected) C. pneumoniae DNA (PCR) (NotDetected) Coronavirus OC43 (PCR) (NotDetected) Coronavirus HKU1 (PCR) (NotDetected) Coronavirus 229E (PCR) (NotDetected) SARS-CoV-2 (PCR) (NotDetected) Coronavirus NL63 (PCR) (NotDetected) Human Metapneumovir PCR (NotDetected) Influenza Type A (PCR) (NotDetected) Influenza Type B (PCR) (NotDetected) Urine Legionella Ag M. pneumoniae (PCR) (NotDetected) Parainfluenza 1 (PCR) (NotDetected) Parainfluenza 2 (PCR) (NotDetected) Parainfluenza 3 (PCR) (NotDetected) Parainfluenza 4 (PCR) (NotDetected) RSV (PCR) (NotDetected) Entero/Rhino (PCR) (NotDetected) Blood Type Antibody Screen Crossmatch 12/06/23 12/06/23 12/06/23 Range/Units 18:26 18:02 16:37 WBC (4.8-10.8) K/ul RBC (4.20-5.40) M/uL Hgb (12.0-16.0) g/dl Hct (37.0-47.0) % MCV (80.0-100.0) fL MCH (25.0-34.0) pg MCHC (32.0-36.0) g/dL RDW Std Deviation (36.4-46.3) fL RDW Coeff of Mike (11.5-14.5) % Plt Count (130-400) K/uL MPV (9.4-12.4) fL Immature Gran % (Auto) % Neut % (Auto) % Lymph % (Auto) % [place] % (Auto) % Eos % (Auto) % Baso % (Auto) % Neut # (Auto) (1.40-6.50) K/uL Lymph # (Auto) (1.20-3.40) K/uL [place] # (Auto) (0.11-0.59) K/uL Eos # (Auto) (0.00-0.50) K/uL Baso # (Auto) (0.00-0.20) K/uL Immature Gran # (Auto) (0.01-0.20) K/uL Absolute Nucleated RBC (0.00-0.12) K/uL Nucleated RBC % (auto) % Toxic Vacuolation Polychromasia Hypochromasia Anisocytosis Target Cells Echinocytes Acanthocytes (Spur) PT (9.0-12.0) Seconds INR (0.9-1.1) ABG pH (7.35-7.45) ABG pCO2 (35-46) mmHg ABG pO2 (80-95) mmHg ABG HCO3 (19-24) mmol/L ABG O2 Saturation (90-95) % ABG Base Excess (-9-1.8) mEq/L Harshal Test (Pos) VBG pH (7.36-7.41) VBG pCO2 (38-50) mmHg VBG pO2 mmHg VBG HCO3 mmol/L VBG O2 Saturation % VBG Base Excess mEq/L Oxygen Given Sodium (136-145) mmol/L Potassium (3.5-5.1) mmol/L Chloride (98-107) mmol/L Carbon Dioxide (21-32) mmol/L Anion Gap (3-11) BUN (6-23) mg/dl Creatinine (0.6-1.2) mg/dl Est Cr Clr Drug Dosing ml/min Est GFR ( Amer) ml/min Est GFR (Non-Af Amer) ml/min BUN/Creatinine Ratio (10-20) Glucose (70-99(Fasting)) mg/dl POC Glucose 101 H (70-99) mg/dl POC Glucose (other) (70-99) mg/dl Fasting Glucose (70-99) mg/dl Estimat Average Glucose mg/dl Hemoglobin A1c (4.5-5.6) % Osmolality (280-300) mOsm/kg Lactate 1.1 (0.4-2.0) mmol/L Calcium (8.6-10.3) mg/dl Phosphorus (2.5-4.9) mg/dl Magnesium (1.7-2.4) mg/dl Total Bilirubin (0.2-1.0) mg/dl Direct Bilirubin (0-0.2) mg/dl AST (13-39) U/L ALT (7-52) U/L Alkaline Phosphatase (34-104) U/L Troponin I High Sens 17.4 H (0-14) pg/ml B-Natriuretic Peptide 208 H (0-100) pg/ml Total Protein (6.0-8.3) gm/dl Albumin (3.4-5.0) gm/dl Globulin (2.5-4.0) gm/dl Albumin/Globulin Ratio (0.9-2) Triglycerides (0-150) mg/dl Procalcitonin (0-0.5) ng/ml TSH 1.251 (0.300-4.500) uIu/ml Random Cortisol 14.29 mcg/dl Urine Color Yellow Urine Appearance Cloudy A (Clear) Urine pH 5.5 (4.5-7.5) Ur Specific [place] 1.043 H (1.000-1.030) Urine Protein 1+ H (Negative) Urine Glucose (UA) Negative (Negative) Urine Ketones Negative (Negative) Urine Blood Trace H (Negative) Urine Nitrite Positive A (Negative) Urine Bilirubin Negative (Negative) Urine Urobilinogen Negative (Negative) Ur Leukocyte Esterase 1+ H (Negative) Urine WBC (Auto) 21-50 H (0-5) /hpf Urine RBC (Auto) 3-5 H (0-2) /hpf U Hyaline Cast (Auto) 3-5 H (0-2) /lpf U Epithel Cells (Auto) 11-20 H (0-2) /hpf Urine Bacteria (Auto) 4+ H (None Seen) Urine Osmolality 429 L (500-800) mOsm/kg Ur Random Creatinine 44.1 mg/dl Ur Random Sodium 34 mmol/L Ur Random Potassium 33.8 mmol/L Ur Random Chloride 50 mmol/L Nasal Screen MRSA (PCR) (Negative) Urine Opiates Screen Neg (Neg) Ur Methadone, Qual Neg (Neg) Urine Fentanyl Screen Neg (Neg) Urine Barbiturates Neg (Neg) Ur Phencyclidine (PCP) Neg (Neg) U Amphetamin/Meth Scrn Neg (Neg) MDMA (Ecstasy) Screen Neg (Neg) U Benzodiazepines Scrn Neg (Neg) Ur Cocaine Metabolite Neg (Neg) U Marijuana (THC) Screen Neg (Neg) Adenovirus (PCR) (NotDetected) B. pertussis DNA (PCR) (NotDetected) B.parapertussis DNA PCR (NotDetected) C. pneumoniae DNA (PCR) (NotDetected) Coronavirus OC43 (PCR) (NotDetected) Coronavirus HKU1 (PCR) (NotDetected) Coronavirus 229E (PCR) (NotDetected) SARS-CoV-2 (PCR) (NotDetected) Coronavirus NL63 (PCR) (NotDetected) Human Metapneumovir PCR (NotDetected) Influenza Type A (PCR) (NotDetected) Influenza Type B (PCR) (NotDetected) Urine Legionella Ag M. pneumoniae (PCR) (NotDetected) Parainfluenza 1 (PCR) (NotDetected) Parainfluenza 2 (PCR) (NotDetected) Parainfluenza 3 (PCR) (NotDetected) Parainfluenza 4 (PCR) (NotDetected) RSV (PCR) (NotDetected) Entero/Rhino (PCR) (NotDetected) Blood Type Antibody Screen Crossmatch 12/06/23 12/06/23 Range/Units 14:01 13:38 WBC 37.27 H* (4.8-10.8) K/ul RBC 3.77 L (4.20-5.40) M/uL Hgb 11.0 L (12.0-16.0) g/dl Hct 33.9 L (37.0-47.0) % MCV 89.9 (80.0-100.0) fL MCH 29.2 (25.0-34.0) pg MCHC 32.4 (32.0-36.0) g/dL RDW Std Deviation 60.9 H (36.4-46.3) fL RDW Coeff of Mike 18.5 H (11.5-14.5) % Plt Count 287 (130-400) K/uL MPV 12.4 (9.4-12.4) fL Immature Gran % (Auto) 1.2 % Neut % (Auto) 90.2 % Lymph % (Auto) 5.8 % [place] % (Auto) 2.2 % Eos % (Auto) 0.1 % Baso % (Auto) 0.5 % Neut # (Auto) 33.62 H (1.40-6.50) K/uL Lymph # (Auto) 2.18 (1.20-3.40) K/uL [place] # (Auto) 0.82 H (0.11-0.59) K/uL Eos # (Auto) 0.05 (0.00-0.50) K/uL Baso # (Auto) 0.17 (0.00-0.20) K/uL Immature Gran # (Auto) 0.43 H (0.01-0.20) K/uL Absolute Nucleated RBC (0.00-0.12) K/uL Nucleated RBC % (auto) % Toxic Vacuolation Polychromasia 1+ Hypochromasia Anisocytosis Target Cells Echinocytes 2+ Acanthocytes (Spur) 2+ PT 12.9 H (9.0-12.0) Seconds INR 1.2 H (0.9-1.1) ABG pH 7.21 L (7.35-7.45) ABG pCO2 19 L (35-46) mmHg ABG pO2 80 (80-95) mmHg ABG HCO3 8 L (19-24) mmol/L ABG O2 Saturation 94.1 (90-95) % ABG Base Excess -18.4 L (-9-1.8) mEq/L [place]arshal Test Pos (Pos) VBG pH 7.13 L (7.36-7.41) VBG pCO2 30 L (38-50) mmHg VBG pO2 < 20 mmHg VBG HCO3 10 mmol/L VBG O2 Saturation < 60.0 % VBG Base Excess -17.9 mEq/L Oxygen Given 10L Sodium 140 (136-145) mmol/L Potassium 3.4 L (3.5-5.1) mmol/L Chloride 116 H (98-107) mmol/L Carbon Dioxide 11 L (21-32) mmol/L Anion Gap 13 H (3-11) BUN 52 H (6-23) mg/dl Creatinine 2.20 H (0.6-1.2) mg/dl Est Cr Clr Drug Dosing 16.2 ml/min Est GFR ( Amer) 27.3 ml/min Est GFR (Non-Af Amer) 23.6 ml/min BUN/Creatinine Ratio 23.6 H (10-20) Glucose 129 H (70-99(Fasting)) mg/dl POC Glucose (70-99) mg/dl POC Glucose (other) (70-99) mg/dl Fasting Glucose (70-99) mg/dl Estimat Average Glucose mg/dl Hemoglobin A1c (4.5-5.6) % Osmolality (280-300) mOsm/kg Lactate 1.6 (0.4-2.0) mmol/L Calcium 8.6 (8.6-10.3) mg/dl Phosphorus (2.5-4.9) mg/dl Magnesium 1.8 (1.7-2.4) mg/dl Total Bilirubin 0.3 (0.2-1.0) mg/dl Direct Bilirubin 0.1 (0-0.2) mg/dl AST 44 H (13-39) U/L ALT 14 (7-52) U/L Alkaline Phosphatase 212 H (34-104) U/L Troponin I High Sens 17.4 H (0-14) pg/ml B-Natriuretic Peptide (0-100) pg/ml Total Protein 7.2 (6.0-8.3) gm/dl Albumin 3.8 (3.4-5.0) gm/dl Globulin (2.5-4.0) gm/dl Albumin/Globulin Ratio (0.9-2) Triglycerides (0-150) mg/dl Procalcitonin 4.49 H (0-0.5) ng/ml TSH (0.300-4.500) uIu/ml Random Cortisol mcg/dl Urine Color Urine Appearance (Clear) Urine pH (4.5-7.5) Ur Specific [place] (1.000-1.030) Urine Protein (Negative) Urine Glucose (UA) (Negative) Urine Ketones (Negative) Urine Blood (Negative) Urine Nitrite (Negative) Urine Bilirubin (Negative) Urine Urobilinogen (Negative) Ur Leukocyte Esterase (Negative) Urine WBC (Auto) (0-5) /hpf Urine RBC (Auto) (0-2) /hpf U Hyaline Cast (Auto) (0-2) /lpf U Epithel Cells (Auto) (0-2) /hpf Urine Bacteria (Auto) (None Seen) Urine Osmolality (500-800) mOsm/kg Ur Random Creatinine mg/dl Ur Random Sodium mmol/L Ur Random Potassium mmol/L Ur Random Chloride mmol/L Nasal Screen MRSA (PCR) (Negative) Urine Opiates Screen (Neg) Ur Methadone, Qual (Neg) Urine Fentanyl Screen (Neg) Urine Barbiturates (Neg) Ur Phencyclidine (PCP) (Neg) U Amphetamin/Meth Scrn (Neg) MDMA (Ecstasy) Screen (Neg) U Benzodiazepines Scrn (Neg) Ur Cocaine Metabolite (Neg) U Marijuana (THC) Screen (Neg) Adenovirus (PCR) Not Detected (NotDetected) B. pertussis DNA (PCR) Not Detected (NotDetected) B.parapertussis DNA PCR Not Detected (NotDetected) C. pneumoniae DNA (PCR) Not Detected (NotDetected) Coronavirus OC43 (PCR) Not Detected (NotDetected) Coronavirus HKU1 (PCR) Not Detected (NotDetected) Coronavirus 229E (PCR) Not Detected (NotDetected) SARS-CoV-2 (PCR) Not Detected (NotDetected) Coronavirus NL63 (PCR) Not Detected (NotDetected) Human Metapneumovir PCR Not Detected (NotDetected) Influenza Type A (PCR) Not Detected (NotDetected) Influenza Type B (PCR) Not Detected (NotDetected) Urine Legionella Ag M. pneumoniae (PCR) Not Detected (NotDetected) Parainfluenza 1 (PCR) Not Detected (NotDetected) Parainfluenza 2 (PCR) Not Detected (NotDetected) Parainfluenza 3 (PCR) Not Detected (NotDetected) Parainfluenza 4 (PCR) Not Detected (NotDetected) RSV (PCR) Not Detected (NotDetected) Entero/Rhino (PCR) Not Detected (NotDetected) Blood Type A Positive Antibody Screen NEGATIVE Crossmatch See Detail Diagnostic Findings Chest CTA 12/06/23 13:22 CT angio chest PE protocol CLINICAL HISTORY: PE; hypotension; hypoxia TECHNIQUE: Multidetector row helical CT of the chest was performed with angiographic protocol. Coronal and sagittal reformations were obtained. Coronal and sagittal MIPS were obtained from the axial data set and were submitted for review. Automated dose lowering techniques and/or adjustment according to patient size were utilized for this exam. Comparison: Comparison is made to CT chest 04/06/2023 FINDINGS: Lungs and pleura: Diffuse groundglass opacities have significantly increased from prior exam. Bronchiectasis is seen. Heart and pericardium: Heart size is normal. No pericardial effusion. Vessels: No evidence of pulmonary embolism. Mediastinum and gary: Unremarkable. Chest wall and lower neck: Unremarkable. Abdomen: Patient is status post cholecystectomy. Bones: Scoliosis is seen. IMPRESSION: 1. No pulmonary embolus. 2. Worsening groundglass opacities compatible with pneumonia and/or aspiration. ACT 112: Negative or not required by law. Electronically signed by: Tyrell Wayne M.D. 12/06/2023 3:10 PM Chest X-Ray 12/06/23 13:22 XR chest 1V portable HISTORY: 58 years-old Female Sepsis acute sepsis COMPARISON: CTA chest of same day TECHNIQUE: AP view the chest FINDINGS: Sigmoid thoracolumbar scoliosis. Left IJ catheter distal tip terminates in the SVC. Mild cardiomegaly. No pneumothorax or pleural effusion. Extensive intermixed interstitial and alveolar opacities. Bones appear grossly intact. Surgical device within the stomach. Right upper quadrant surgical clips. IMPRESSION: Extensive intermixed interstitial and alveolar opacities without pleural effusion. Pneumonia versus ARDS are differential considerations. ACT 112: Negative or not required by law. The above report was generated using voice recognition software. It may contain grammatical, syntax or spelling errors. Electronically signed by: Maikel Lafleur M.D. 12/06/2023 3:[address] 12/06/23 13:22 CT head/brain wo con CLINICAL HISTORY: altered mental status Technique: Contiguous axial CT images of the head were acquired from the base of the skull to the vertex without intravenous contrast administration. Images were viewed in brain, subdural and bone windows. Automated dose lowering techniques and/or adjustment according to patient size were utilized for this exam. Comparison: None available at the time of this dictation. Findings: The ventricles, basal cisterns, and cerebral sulci are normal. There is no acute intracranial hemorrhage or evidence of acute territorial infarction. Neither mass effect, shift of the midline structures, nor abnormal extra-axial fluid collections are shown. Imaged portions of the paranasal sinuses and mastoid air cells are clear. The orbits appear normal. There are no acute fractures of the calvaria or scalp swelling. Impression: No acute intracranial hemorrhage, no evidence of acute territorial infarction or other acute intracranial disease process. ACT 112: Negative or not required by law. Electronically signed by: Tyrell Wayen M.D. 12/06/2023 3:07 PM Head CTA 12/06/23 13:22 CT angio head w con CLINICAL HISTORY: 58 years-old Female with altered mental status. Acutely altered mental status COMPARISON STUDY: CTA neck and head CT studies of same day TECHNIQUE: Following the IV administration of 120 cc of Optiray, CT angiogram of the brain was performed from the skull base to the vertex. Images are reviewed in the axial, sagittal, and coronal planes. 3-D MIPS images are created and assessed. IV contrast was administered without complication. All measurements were obtained according to NASCET criteria. A dose lowering technique was utilized adhering to the principles of ALARA. FINDINGS: CT ANGIOGRAM OF THE BRAIN: The imaged bilateral internal carotid arteries are patent. The bilateral anterior and middle cerebral arteries are also patent. The vertebrobasilar system and posterior cerebral arteries are widely patent. There is no aneurysm, high-grade stenosis, or proximal branch occlusion identified. Dural sinuses appear patent. Involutional changes with chronic microvascular ischemic disease. The study is motion degraded. IMPRESSION: Unremarkable CTA of the head. ACT 112: Negative or not required by law. The above report was generated using voice recognition software. It may contain grammatical, syntax or spelling errors. Electronically signed by: Maikel Lafleur M.D. 12/06/2023 3:50 PM Neck CTA 12/06/23 13:22 CT angio neck with con CLINICAL HISTORY: 58 years-old Female with altered mental status. Acutely altered mental status COMPARISON STUDY: CT abdomen same day TECHNIQUE: Following the IV administration of 120 mL of Optiray, CT angiogram of the neck was performed from the aortic arch to the skull base. Images are reviewed in the axial, sagittal, and coronal planes. 3-D MIPS images are created and assessed. IV contrast was administered without complication. All measurements were calculated based on NASCET criteria. A dose lowering technique was utilized adhering to the principles of ALARA. CT DOSE: 1083.39 mGy.cm FINDINGS: Three-vessel morphology of the thoracic aortic arch. There is patency of the innominate and imaged subclavian arteries. The common and internal carotid arteries are patent. Codominant and patent vertebral arteries. No aneurysm, dissection, high-grade stenosis or arterial occlusion. Intralobular septal thickening with groundglass densities in the left greater than right lungs. Mild emphysema. Left IJ catheter is partially imaged. Unremarkable thyroid. No acute fracture. IMPRESSION: 1. Unremarkable CTA of the neck. 2. Partially imaged left greater than right pulmonary opacities, better evaluated on the same day CTA of the chest. ACT 112: Negative or not required by law. The above report was generated using voice recognition software. It may contain grammatical, syntax or spelling errors. Electronically signed by: Maikel Lafleur M.D. 12/06/2023 3:31 PM Chest X-Ray 12/07/23 17:38 XR chest 1V portable HISTORY: 58 years-old Female SOB acute shortness of breath COMPARISON: Chest radiograph and CTA chest study 612 TECHNIQUE: AP view of the chest FINDINGS: Sigmoid thoracolumbar scoliosis. Left IJ catheter distal tip terminates in the SVC. Mild cardiomegaly. No pneumothorax or pleural effusion. Extensive intermixed interstitial and alveolar opacities, progressively worsened. Bones appear grossly intact. Surgical device within the stomach. Right upper quadrant surgical clips. IMPRESSION: Progressive worsening of the extensive intermixed interstitial and alveolar opacities without pleural effusion. Pneumonia versus ARDS are differential considerations. ACT 112: Negative or not required by law. The above report was generated using voice recognition software. It may contain grammatical, syntax or spelling errors. Electronically signed by: Maikel Lafleur M.D. 12/07/2023 6:11 PM Chest X-Ray 12/08/23 07:00 XR chest 1V portable HISTORY: 58 years-old Female f/u acute shortness of breath COMPARISON: 12/07/2023 TECHNIQUE: AP view of the chest FINDINGS: Sigmoidal thoracolumbar scoliosis redemonstrated. Left IJ catheter distal tip terminates in the SVC. Mild cardiomegaly. No pneumothorax or pleural effusion. Extensive intermixed interstitial and alveolar opacities, progressively worsened. Bones appear grossly intact. Surgical device within the stomach. Right upper quadrant surgical clips. IMPRESSION: Progressive worsening of the extensive intermixed interstitial and alveolar opacities without definite pleural effusion. Pneumonia versus ARDS are primary differential considerations. ACT 112: Negative or not required by law. The above report was generated using voice recognition software. It may contain grammatical, syntax or spelling errors. Electronically signed by: Maikel Lafleur M.D. 12/08/2023 7:05 AM Chest X-Ray 12/10/23 08:28 XR chest 1V portable HISTORY: 58 years-old Female dah? Acute shortness breath COMPARISON: 12/08/2023 TECHNIQUE: AP view of the chest FINDINGS: Sigmoidal thoracolumbar scoliosis redemonstrated. Left IJ catheter distal tip terminates in the SVC. Mild cardiomegaly. No pneumothorax or pleural effusion. Extensive intermixed interstitial and alveolar opacities are redemonstrated and overall appear generally stable. Bones appear grossly intact. Surgical device within the stomach. Right upper quadrant surgical clips. IMPRESSION: Persistent extensive intermixed interstitial and alveolar opacities have not significantly changed. Pneumonia, ARDS versus pulmonary edema are the differential considerations. ACT 112: Negative or not required by law. The above report was generated using voice recognition software. It may contain grammatical, syntax or spelling errors. Electronically signed by: Maikel Lafleur M.D. 12/10/2023 9:[address] 12/11/23 09:22 CT head/brain wo con CLINICAL HISTORY: 58 years-old Female with AMS speech changes. Acutely altered mental status with metabolic encephalopathy TECHNIQUE: Multiple axial CT images of the head were obtained without contrast. A dose lowering technique was utilized adhering to the principles of ALARA. CT DOSE: 625.8 mGy.cm COMPARISON: 12/06/2023 FINDINGS: No acute intracranial hemorrhage, midline shift, intracranial mass, hydrocephalus, territorial ischemia or abnormal extra-axial collection. Motion degraded exam. Extensive white matter hypodensities have progressively worsened from 12/06/2023. The [place]-white interface is preserved. The calvarium is intact. Prior bilateral lens repair. The paranasal sinuses, mastoid air cells, and middle ear cavities are clear. IMPRESSION: 1. No acute intracranial hemorrhage, midline shift or acute territorial infarct. 2. Extensive white matter hypodensities throughout the cerebrum have progressively worsened compared to the 12/06/2023 study. Findings are suggestive of a nonspecific demyelinating disorder. These findings may be related to the patient's reported profound metabolic encephalopathy. ACT 112: Negative or not required by law. The above report was generated using voice recognition software. It may contain grammatical, syntax or spelling errors. Electronically signed by: Maikel Lafleur M.D. 12/11/2023 10:11 AM KUB X-Ray 12/11/23 19:29 KUB CLINICAL HISTORY: MRI clearance. FINDINGS: 2 AP, portable, supine abdominal radiographs are compared to abdominal radiographs and CT dated 09/06/2021. There is a nonobstructed abdominal bowel gas pattern. Suture material and an indeterminant stent project over the left upper quadrant. Cholecystectomy clips are noted. Surgical clips also project over the right groin. No evidence of intraperitoneal free air is seen. There are no abnormal abdominal calcifications. Phleboliths are seen in the pelvis. The ske letal structures are osteopenic and appear intact. There is degenerative change and scoliosis in the spine. IMPRESSION: 1. Postsurgical change as above and an indeterminant bowel stent project over the left upper quadrant. 2. No additional radiodense foreign body is seen. 3. No bowel obstruction. Electronically signed by: Jensen Guillaume M.D. 12/11/2023 9:35 PM Chest X-Ray 12/12/23 07:00 XR chest 1V portable HISTORY: 58 years-old Female resp failure acute respiratory failure COMPARISON: 12/10/2023 TECHNIQUE: AP view of the chest FINDINGS: Sigmoidal thoracolumbar scoliosis redemonstrated. Left IJ catheter distal tip terminates in the SVC. Mild cardiomegaly. No pneumothorax or pleural effusion. Extensive intermixed interstitial and alveolar opacities are redemonstrated and overall appear stable to mildly improved. Bones appear grossly intact. Surgical device within the stomach. Right upper quadrant surgical clips. IMPRESSION: Persistent extensive intermixed interstitial and alveolar opacities have mildly improved. ACT 112: Negative or not required by law. The above report was generated using voice recognition software. It may contain grammatical, syntax or spelling errors. Electronically signed by: Maikel Lafleur M.D. 12/12/2023 6:[address] 12/13/23 11:12 CT head/brain wo con CLINICAL HISTORY: 58 years-old Female with AMS, follow up. Acutely altered mental status TECHNIQUE: Multiple axial CT images of the head were obtained without contrast. A dose lowering technique was utilized adhering to the principles of ALARA. CT DOSE: 625.8 mGy.cm COMPARISON: 12/11/2023 FINDINGS: No acute intracranial hemorrhage, midline shift, intracranial mass, hydrocephalus, territorial ischemia or abnormal extra-axial collection. Extensive white matter hypodensities throughout the cerebrum with possible central pontine hypodensity. [place]-white interface is preserved. Study is overall generally stable from prior. The calvarium is intact. The paranasal sinuses, mastoid air cells, and middle ear cavities are clear. IMPRESSION: 1. No acute intracranial hemorrhage, midline shift or acute territorial infarct. 2. Extensive white matter hypodensities throughout the cerebrum are redemonstrated and appear similar to the study from 12/11/2023. As previously described, these findings are suggestive of a nonspecific demyelinating disorder, likely toxic/metabolic. ACT 112: Negative or not required by law. The above report was generated using voice recognition software. It may contain grammatical, syntax or spelling errors. Electronically signed by: Maikel Lafleur M.D. 12/13/2023 12:55 PM PG Care Time/CCT Total # of Minutes Spent Total Time Spent: 70 Total Time Spent with Patient: Total time spent is greater than 50% in coordination of care (as documented) at patient's floor/unit and/or counseling patient: [place] [address] IN/OBS CONSULT LVL 4,60M Patient Type New History Comprehensive Exam Comprehensive Medical Decision Making High Complexity Diagnoses Weakness generalized R53.1 Dyspnea and respiratory abnormalities R06.00; R06.89 AMS (altered mental status) R41.82 Cachexia R64 Advanced care planning/counseling discussion Z71.89 Palliative care by specialist Z51.5
--- NOTE | 2023-12-13 12:56 | CT Scan Report ---
CT head/brain wo con CLINICAL HISTORY: 58 years-old Female with AMS, follow up. Acutely altered mental status TECHNIQUE: Multiple axial CT images of the head were obtained without contrast. A dose lowering tech nique was utilized adhering to the principles of ALARA. CT DOSE: 625.8 mGy.cm COMPARISON: 12/11/2023 FINDINGS: No acute intracranial hemorrhage, midline shift, intracranial mass, hydrocephalus, territorial ischem ia or abnormal extra-axial collection. Extensive white matter hypodensities throughout the cerebrum w ith possible central pontine hypodensity. [place]-white interface is preserved. Study is overall general ly stable from prior. The calvarium is intact. The paranasal sinuses, mastoid air cells, and middle ear cavities are clear . IMPRESSION: 1. No acute intracranial hemorrhage, midline shift or acute territorial infarct. 2. Extensive white matter hypodensities throughout the cerebrum are redemonstrated and appear similar to the study from 12/11/2023. As previously described, these findings are suggestive of a nonspecific demyelinating disorder, likely toxic/metabolic. ACT 112: Negative or not required by law. The above report was generated using voice recognition software. It may contain grammatical, syntax o r spelling errors. Electronically signed by: Maikel Lafleur M.D. 12/13/2023 12:55 PM
[2023-12-13] MEDS: CLINOLIPID 20% IV FAT EMULSION 200 ML IV SCH (16:46)
[2023-12-13] MEDS: [UNRECOGNIZED DRUG - OTHER] IV SCH (16:46)
[2023-12-13] MEDS: CENTRAL TPN IV SCH (16:46)
[2023-12-13] MEDS: methylPREDNISolone 20 MG in SYRINGE 0 ML IV SCH (16:56)
--- NOTE | 2023-12-13 18:02 | Hospitalist Progress Note ---
Date of Service December 13, 2023 Assessment & Plan (1) Protein calorie malnutrition: (2) History of nephrectomy: (3) Pneumonia: (4) Septic shock: (5) Acidosis: (6) Leukocytosis: (7) Acute hypoxemic respiratory failure: Plan Patient is a 58 year old female with PMHx significant for chronic malabsorption syndrome post bypass, severe protein calorie malnutrition on TPN, iron deficiency anemia, copper deficiency, h/o right nephrectomy in 2022, bipolar disorder, anxiety, depression, tobacco use, migraine headache, nonspecific white matter changes, myelopathy who presented to the ER with multiple medical complaints including SOB, dry mouth and speech changes. Septic Shock Pneumonia Complicated UTI Acute hypoxic respiratory Failure Upon arrival to ER patient noted to be hypotensive and hypoxic in the 70's. In ER afebrile, P: 94, R: 30, BP: 87/56, 78% on RA CTA Chest: No pulmonary embolus. Groundglass opacities compatible with pneumonia and/or aspiration. CT Head, CTA Head & neck: unremarkable WBC: 36.7. Lactate: 1.6, procalcitonin: 4.5 Was on 10L nonrebreather with O2 sat low 90's UA was suggestive of infection, urine culture grew E coli and Klebsiella Blood Cx x2 sets NGTD Fungal Cx NGTD Drug screen negative Suspect sepsis secondary to pneumonia, UTI. In ER given meropenem, vancomycin, 2 L NSS Was admitted to the ICU, Was on Cefepime (transitioned to Rocephin) and azithromycin and Caspofungin. Caspofungin d/c Also on pressors for BP support as well as hydrocortisone. Pressors have since been weaned off, off steroids, on po prednisone Was on hiFlo oxygen, wean as tolerated Pulmonology consulted, appreciate recs Continue to monitor Acute metabolic Encephalopathy Pt now confused Likely in setting of above. Delirium precautions. Frequent reorientation, avoid sedating medications Continue to monitor 12/10- urgent head CT ordered, no stroke but concern for demyelinating disease. MRI brain ordered wo contrast due to pt's ROBINSON/CKD, Neurology consulted, appreciate recs. 12/11- pt with noted stent on KUB, cannot be cleared for MRI. Discussed with Neurology Dr Chaney who states that the MRI is needed and should either discuss comfort measures/palliative care with family or have pt transferred for further neurological evaluation. Per nursing, a family member will be coming in later today and pt's case and status will be discussed then. 12/12 - pt is now awake and talkative but does not really have eye contact , prefers looking to the side. able to answer simple questions but not able to hold meaningful conversation. discussed w/ Dr. Chaney - and CT had obtained. Also updated and discussed with pt's brother at the bedside. Acute kidney injury Metabolic acidosis History of nephrectomy Cr: 2.2 on admission ABG pH of 7.21, HCO3 of 8, pCO2 of 19. AG of 9 at that time. Recent ROBINSON end of 10/2023 with Cr: 1.6 on 12/03 and 1.7 on 11/21. Prior baseline Cr: 1.0-1.2 IVF in ER. Did have CTA with contrast in ER Monitor renal function Nephrology consulted, appreciate recs -was on bicarb drip, since discontinued -Cr now at baseline Continue to monitor Bradycardia Episodes on 12/09 in setting of morphine d/c morphine, consider alternative nonnarcotic for pain management Continue to monitor on telemetry Stable/resolved at this time Acute on chronic Anemia Hgb below 7 on 12/08 Baseline of 7-8 required 2 physician consent as pt in acute delirium, family cannot be contacted Anemia panel Likely dilutional Continue to monitor H/H Protein calorie malnutrition Aspiration S/P bypass BMI: 14 On TPN 4 days a week at home Nutrition consult, speech consult Currently NPO due to aspiration TPN re-started on 12/07 Has been restarted Depression with anxiety: History Bipolar disorder On home buspirone, duloxetine, olanzapine H/O migraine Denies current SMALLWOOD Tobacco use Smokes 1/2ppd Smoking cessation encouraged Diet: NPO, TPN has been restarted DVT Prophylaxis: Heparin SQ Admission and Anticipated Discharge Date Admission Date: December 06, 2023 Subjective Pt seen in follow up, AMS, hypoxia/ pna Currently laying in bed in NAD, opens eyes but does not really have eye contact , prefers looking to the side. able to answer simple questions but not able to hold meaningful conversation Speech therapist at the bedside as well Denies fever, chills, chest pain or shortness of breath Discussed w/ neurology - Dr. Chaney - obtained repeat CT head Called pt's brother and discussed on phone - he then came from [place] and discussed further with me at the bedside- for now decided to continue to observe to see how pt's mental status improves (or not), and if not - will discuss [place] [facility] [place] (Dr. Chaney also updated on our conversation) Review of Systems Review of Systems: All systems reviewed & are unremarkable except as noted in Subjective Physical Exam Physical Exam: General: thin, frail F in NAD HEENT: NC/AT CV: RRR Resp: no increased effort of breathing, NC in nares Abdomen: Soft Extremities: No edema in lower extremities bilaterally. Neuro: awake but only able to answer some questions appropriately, not able to have meaningful conversation, speech fluent, moves extremities, poor eye contact Results & Data Results & Data Vital Signs (Past 12 Hours) Vital Signs Temp Pulse Resp BP BP Pulse Ox O2 Del Method 12/13/23 15:44 37.1 C 70 19 152/71 H 97 Room Air 12/13/23 11:41 36.9 C 62 18 137/72 100 Nasal Cannula 12/13/23 08:25 Nasal Cannula 12/13/23 08:00 12/13/23 07:20 36.4 C L 58 L 18 133/70 99 Nasal Cannula O2 Del Method O2 Flow Rate O2 Flow Rate 12/13/23 15:44 12/13/23 11:41 1 12/13/23 08:25 2 12/13/23 08:00 Nasal Cannula 2 12/13/23 07:20 2 Laboratory Results 12/13/23 12/13/23 12/13/23 Range/Units 16:25 11:32 07:19 WBC (4.8-10.8) K/ul RBC (4.20-5.40) M/uL Hgb (12.0-16.0) g/dl Hct (37.0-47.0) % MCV (80.0-100.0) fL MCH (25.0-34.0) pg MCHC (32.0-36.0) g/dL RDW Std Deviation (36.4-46.3) fL RDW Coeff of Mike (11.5-14.5) % Plt Count (130-400) K/uL MPV (9.4-12.4) fL Immature Gran % (Auto) % Neut % (Auto) % Lymph % (Auto) % Emmet % (Auto) % Eos % (Auto) % Baso % (Auto) % Neut # (Auto) (1.40-6.50) K/uL Lymph # (Auto) (1.20-3.40) K/uL Emmet # (Auto) (0.11-0.59) K/uL Eos # (Auto) (0.00-0.50) K/uL Baso # (Auto) (0.00-0.20) K/uL Immature Gran # (Auto) (0.01-0.20) K/uL Absolute Nucleated RBC (0.00-0.12) K/uL Nucleated RBC % (auto) % Sodium (136-145) mmol/L Potassium (3.5-5.1) mmol/L Chloride (98-107) mmol/L Carbon Dioxide (21-32) mmol/L Anion Gap (3-11) BUN (6-23) mg/dl Creatinine (0.6-1.2) mg/dl Est Cr Clr Drug Dosing ml/min Est GFR ( Amer) ml/min Est GFR (Non-Af Amer) ml/min BUN/Creatinine Ratio (10-20) Glucose (70-99(Fasting)) mg/dl POC Glucose 114 H 166 H 132 H (70-99) mg/dl Calcium (8.6-10.3) mg/dl Phosphorus (2.5-4.9) mg/dl Magnesium (1.7-2.4) mg/dl Total Bilirubin (0.2-1.0) mg/dl AST (13-39) U/L ALT (7-52) U/L Alkaline Phosphatase (34-104) U/L Total Protein (6.0-8.3) gm/dl Albumin (3.4-5.0) gm/dl Globulin (2.5-4.0) gm/dl Albumin/Globulin Ratio (0.9-2) Triglycerides (0-150) mg/dl 12/13/23 12/13/23 12/13/23 Range/Units 06:29 04:20 00:01 WBC 23.20 H (4.8-10.8) K/ul RBC 2.88 L (4.20-5.40) M/uL Hgb 8.3 L (12.0-16.0) g/dl Hct 26.7 L (37.0-47.0) % MCV 92.7 (80.0-100.0) fL MCH 28.8 (25.0-34.0) pg MCHC 31.1 L (32.0-36.0) g/dL RDW Std Deviation 55.0 H (36.4-46.3) fL RDW Coeff of Mike 17.7 H (11.5-14.5) % Plt Count 176 (130-400) K/uL MPV 13.5 H (9.4-12.4) fL Immature Gran % (Auto) 4.3 % Neut % (Auto) 81.2 % Lymph % (Auto) 9.2 % Emmet % (Auto) 5.1 % Eos % (Auto) 0.0 % Baso % (Auto) 0.2 % Neut # (Auto) 18.83 H (1.40-6.50) K/uL Lymph # (Auto) 2.14 (1.20-3.40) K/uL Emmet # (Auto) 1.19 H (0.11-0.59) K/uL Eos # (Auto) 0.00 (0.00-0.50) K/uL Baso # (Auto) 0.04 (0.00-0.20) K/uL Immature Gran # (Auto) 1.00 H (0.01-0.20) K/uL Absolute Nucleated RBC 0.07 (0.00-0.12) K/uL Nucleated RBC % (auto) 0.3 % Sodium 148 H (136-145) mmol/L Potassium 4.4 (3.5-5.1) mmol/L Chloride 110 H (98-107) mmol/L Carbon Dioxide 32 (21-32) mmol/L Anion Gap 6 (3-11) BUN 70 H (6-23) mg/dl Creatinine 0.90 (0.6-1.2) mg/dl Est Cr Clr Drug Dosing 43.3 ml/min Est GFR ( Amer) 80.5 ml/min Est GFR (Non-Af Amer) 69.5 ml/min BUN/Creatinine Ratio 77.8 H (10-20) Glucose 118 H (70-99(Fasting)) mg/dl POC Glucose 122 H 210 H (70-99) mg/dl Calcium 8.2 L (8.6-10.3) mg/dl Phosphorus 2.9 (2.5-4.9) mg/dl Magnesium 1.8 (1.7-2.4) mg/dl Total Bilirubin 0.4 (0.2-1.0) mg/dl AST 47 H (13-39) U/L ALT 62 H (7-52) U/L Alkaline Phosphatase 79 (34-104) U/L Total Protein 5.3 L (6.0-8.3) gm/dl Albumin 2.8 L (3.4-5.0) gm/dl Globulin 2.5 (2.5-4.0) gm/dl Albumin/Globulin Ratio 1.1 (0.9-2) Triglycerides 140 (0-150) mg/dl 12/12/23 Range/Units 20:06 WBC (4.8-10.8) K/ul RBC (4.20-5.40) M/uL Hgb (12.0-16.0) g/dl Hct (37.0-47.0) % MCV (80.0-100.0) fL MCH (25.0-34.0) pg MCHC (32.0-36.0) g/dL RDW Std Deviation (36.4-46.3) fL RDW Coeff of Mike (11.5-14.5) % Plt Count (130-400) K/uL MPV (9.4-12.4) fL Immature Gran % (Auto) % Neut % (Auto) % Lymph % (Auto) % Emmet % (Auto) % Eos % (Auto) % Baso % (Auto) % Neut # (Auto) (1.40-6.50) K/uL Lymph # (Auto) (1.20-3.40) K/uL Emmet # (Auto) (0.11-0.59) K/uL Eos # (Auto) (0.00-0.50) K/uL Baso # (Auto) (0.00-0.20) K/uL Immature Gran # (Auto) (0.01-0.20) K/uL Absolute Nucleated RBC (0.00-0.12) K/uL Nucleated RBC % (auto) % Sodium (136-145) mmol/L Potassium (3.5-5.1) mmol/L Chloride (98-107) mmol/L Carbon Dioxide (21-32) mmol/L Anion Gap (3-11) BUN (6-23) mg/dl Creatinine (0.6-1.2) mg/dl Est Cr Clr Drug Dosing ml/min Est GFR ( Amer) ml/min Est GFR (Non-Af Amer) ml/min BUN/Creatinine Ratio (10-20) Glucose (70-99(Fasting)) mg/dl POC Glucose 247 H (70-99) mg/dl Calcium (8.6-10.3) mg/dl Phosphorus (2.5-4.9) mg/dl Magnesium (1.7-2.4) mg/dl Total Bilirubin (0.2-1.0) mg/dl AST (13-39) U/L ALT (7-52) U/L Alkaline Phosphatase (34-104) U/L Total Protein (6.0-8.3) gm/dl Albumin (3.4-5.0) gm/dl Globulin (2.5-4.0) gm/dl Albumin/Globulin Ratio (0.9-2) Triglycerides (0-150) mg/dl Medications Administered Current Inpatient Medications Dextrose (Dextrose 50% 50 Ml Syringe) 25 - 50 ml IV UD PRN; Protocol PRN Reason: Hypoglycemia Protocol Stop: 01/07/24 15:14 Glucagon (Glucagon For Inj 1 Mg Vial) 1 mg IM UD PRN; Protocol PRN Reason: Hypoglycemia Protocol Stop: 01/07/24 15:14 Glucose (Glucose 40% Gel 15 Gm Tube) 15 - 30 gm PO UD PRN; Protocol PRN Reason: Hypoglycemia Protocol Stop: 01/07/24 15:14 Glucose (Glucose 10 Tab/Tube) 4 - 8 tab PO UD PRN; Protocol PRN Reason: Hypoglycemia Protocol Stop: 01/07/24 15:14 Heparin Sodium (Beef Lung) (Heparin 10 Unit/Ml 5 Ml Flush) 5 ml FLUSH PRN PRN PRN Reason: Flush Stop: 01/05/24 19:36 Heparin Sodium (Porcine) (Heparin Sod 5,000 Unit/0.5 Ml Vial) 5,000 units SQ Q12 ALEKS Stop: 01/05/24 20:59 Last Admin: 12/08/23 20:32 Dose: 5,000 units Pantoprazole Sodium 40 mg/ (Syringe) 10 mls @ 5 mls/min IV DAILY@1100 ALEKS Stop: 01/07/24 10:59 Last Admin: 12/13/23 09:50 Dose: 5 mls/min Dextrose (D10w) 1,000 mls @ 0 mls/hr IV .Q0M PRN PRN Reason: protocol (see label comments) Stop: 01/07/24 13:10 Ceftriaxone Sodium (Rocephin) 2,000 mg in 50 mls @ 100 mls/hr IV Q24H ALEKS Stop: 12/13/23 21:29 Last Infusion: 12/12/23 21:38 Dose: Infused Azithromycin 250 mg/ Dextrose 252.5 mls @ 125 mls/hr IV Q24H ALEKS Stop: 12/18/23 08:59 Last Infusion: 12/13/23 11:51 Dose: Infused Acetaminophen 600 mg/ EMPTY (BAG) 60 mls @ 0 mls/hr IV Q8H PRN; Protocol PRN Reason: Pain/Fever Stop: 01/09/24 09:58 Last Infusion: 12/10/23 11:53 Dose: Infused Methylprednisolone 20 mg/ (Syringe) 0.32 mls @ 1.5 mls/min IV Q12H ALEKS Stop: 01/12/24 17:59 Last Admin: 12/13/23 16:56 Dose: 1.5 mls/min Amino Acids/Dextrose 771.3 ml/ (Nutrition (Parenteral)) 771.3 mls @ 96.41 mls/hr IV .Q8H1M ALEKS; Protocol Stop: 12/14/23 00:01 Last Admin: 12/13/23 16:46 Dose: 96.4 mls/hr Fat Emulsion-[place] Oil/Soybean Oil (Clinolipid 20% Iv Fat Emulsion) 200 mls @ 33.333 mls/hr IV .Q6H ALEKS Stop: 12/13/23 21:59 Last Admin: 12/13/23 16:46 Dose: 33.3 mls/hr Insulin Aspart (Insulin Aspart Per Unit Charge) 0 units SC Q4 ALEKS; Protocol Stop: 01/06/24 16:59 Last Admin: 12/13/23 16:32 Dose: Not Given Insulin Glargine (Lantus Per Unit Charge) 10 units SC DAILY [facility]; Protocol Stop: 01/11/24 08:59 Last Admin: 12/13/23 09:50 Dose: 10 units Miscellaneous (Carbohydrates For Hypoglycemia ) 15 - 30 gm PO UD PRN PRN Reason: Hypoglycemia Treatment Stop: 01/07/24 15:14 Miscellaneous (Stop Clinolipid) 1 each N/A DAILY@2200 ALEKS Stop: 01/09/24 21:59 Last Admin: 12/10/23 22:03 Dose: Not Given Miscellaneous (Tpn Stop Order) 1 each N/A DAILY@0000 ONE Stop: 12/14/23 00:01 Miscellaneous Information (Tpn/Ppn Consult Pharmacy) 1 each N/A UD PRN PRN Reason: Consult Stop: 01/05/24 17:15 Miscellaneous Information (Pharmacy Glycemic Mgmt Consult) 1 each N/A UD PRN; Protocol PRN Reason: Consult Stop: 01/06/24 16:36
[2023-12-14] MEDS: OLANZapine 10 MG/2.1 ML SDV IM PRN (00:16)
[2023-12-14] MEDS: TPN STOP ORDER ONE (00:18)
[2023-12-14] MEDS: OLANZapine 10 MG/2.1 ML SDV IM STA (03:08)
[2023-12-14 06:54] LABS: Basophils # (auto) 0.04 K/uL (0.00-0.20); Basophils % (auto) 0.2 %; Hematocrit (blood only) 28.4 % (37.0-47.0); Hemoglobin 8.9 g/dl (12.0-16.0); Immature Granulocytes # (auto) 0.76 K/uL (0.01-0.20); Immature Granulocytes % (auto) 3.3 %; Lymphocytes # (auto) 2.97 K/uL (1.20-3.40); Lymphocytes % (auto) 12.7 %; Mean Corpuscular Hemoglobin 29.3 pg (25.0-34.0); Mean Corpuscular Hgb Conc 31.3 g/dL (32.0-36.0); Mean Corpuscular Volume 93.4 fL (80.0-100.0); Mean Platelet Volume 13.5 fL (9.4-12.4); Monocytes # (auto) 1.23 K/uL (0.11-0.59); Monocytes % (auto) 5.3 %; Neutrophils # (auto) 18.38 K/uL (1.40-6.50); Neutrophils % (auto) 78.5 %; Nucleated RBC # (auto) 0.03 K/uL (0.00-0.12); Nucleated RBC % (auto) 0.1 %; Platelet Count 171 K/uL (130-400); RDW Coefficient of Variation 17.7 % (11.5-14.5); Red Blood Count 3.04 M/uL (4.20-5.40); White Blood Count 23.38 K/ul (4.8-10.8)
[2023-12-14 07:11] LABS: Albumin Globulin Ratio 1.3 (0.9-2); BUN Creatinine Ratio 74.2 (10-20); Bilirubin,Total 0.4 mg/dl (0.2-1.0); Calcium 8.3 mg/dl (8.6-10.3); Creatinine Clr Calc Pharmacy 43.7 ml/min; Est GFR (African American) 81.6 ml/min; Est GFR (Non-African American) 70.4 ml/min; Globulin 2.3 gm/dl (2.5-4.0); Magnesium 1.8 mg/dl (1.7-2.4); Phosphorus 3.2 mg/dl (2.5-4.9); Potassium 4.3 mmol/L (3.5-5.1); Total Protein 5.3 gm/dl (6.0-8.3)
--- NOTE | 2023-12-14 09:59 | Hospitalist Progress Note ---
Date of Service December 14, 2023 Assessment & Plan (1) Protein calorie malnutrition: (2) History of nephrectomy: (3) Pneumonia: (4) Septic shock: (5) Acidosis: (6) Leukocytosis: (7) Acute hypoxemic respiratory failure: Plan Patient is a 58 year old female with PMHx significant for chronic malabsorption syndrome post bypass, severe protein calorie malnutrition on TPN, iron deficiency anemia, copper deficiency, h/o right nephrectomy in 2022, bipolar disorder, anxiety, depression, tobacco use, migraine headache, nonspecific white matter changes, myelopathy who presented to the ER with multiple medical complaints including SOB, dry mouth and speech changes. Septic Shock Pneumonia Complicated UTI Acute hypoxic respiratory Failure Upon arrival to ER patient noted to be hypotensive and hypoxic in the 70's. In ER afebrile, P: 94, R: 30, BP: 87/56, 78% on RA CTA Chest: No pulmonary embolus. Groundglass opacities compatible with pneumonia and/or aspiration. CT Head, CTA Head & neck: unremarkable WBC: 36.7. Lactate: 1.6, procalcitonin: 4.5 Was on 10L nonrebreather with O2 sat low 90's UA was suggestive of infection, urine culture grew E coli and Klebsiella Blood Cx x2 sets NGTD Fungal Cx NGTD Drug screen negative Suspect sepsis secondary to pneumonia, UTI. In ER given meropenem, vancomycin, 2 L NSS Was admitted to the ICU, Was on Cefepime (transitioned to Rocephin) and azithromycin and Caspofungin. Caspofungin d/c Also on pressors for BP support as well as hydrocortisone. Pressors have since been weaned off, off steroids Was on hiFlo oxygen, wean as tolerated Pulmonology consulted, appreciate recs Continue to monitor Acute metabolic Encephalopathy Pt now confused Likely in setting of above. Delirium precautions. Frequent reorientation, avoid sedating medications Continue to monitor 12/10- urgent head CT ordered, no stroke but concern for demyelinating disease. MRI brain ordered wo contrast due to pt's ROBINSON/CKD, Neurology consulted, appreciate recs. 12/11- pt with noted stent on KUB, cannot be cleared for MRI. Discussed with Neurology Dr Chaney who states that the MRI is needed and should either discuss comfort measures/palliative care with family or have pt transferred for further neurological evaluation. Per nursing, a family member will be coming in later today and pt's case and status will be discussed then. 12/12 - pt is now awake and talkative but does not really have eye contact , prefers looking to the side. able to answer simple questions but not able to hold meaningful conversation. discussed w/ Dr. Chaney - and CT had obtained. Also updated and discussed with pt's brother at the bedside. 12/13 awake and able to answers simple questions - but still confused and not able to have meaningful conversation. Required zyprexa overnight, in restraints this AM. Acute kidney injury Metabolic acidosis History of nephrectomy Cr: 2.2 on admission ABG pH of 7.21, HCO3 of 8, pCO2 of 19. AG of 9 at that time. Recent ROBINSON end of 10/2023 with Cr: 1.6 on 12/03 and 1.7 on 11/21. Prior baseline Cr: 1.0-1.2 IVF in ER. Did have CTA with contrast in ER Monitor renal function Nephrology consulted, appreciate recs -was on bicarb drip, since discontinued -Cr now at baseline Continue to monitor Bradycardia Episodes on 12/09 in setting of morphine d/c morphine, consider alternative nonnarcotic for pain management Continue to monitor on telemetry Stable/resolved at this time Acute on chronic Anemia Hgb below 7 on 12/08 Baseline of 7-8 required 2 physician consent as pt in acute delirium, family cannot be contacted Anemia panel Likely dilutional Continue to monitor H/H Protein calorie malnutrition Aspiration S/P bypass BMI: 14 On TPN 4 days a week at home Nutrition consult, speech consult Currently NPO due to aspiration TPN re-started on 12/07 Has been restarted 12/13 Pt pulled out her Saab which was used for TPN, gen. surg. consulted Depression with anxiety: History Bipolar disorder On home buspirone, duloxetine, olanzapine H/O migraine Denies current [place]OD Tobacco use Smokes 1/2ppd Smoking cessation encouraged DVT Prophylaxis: Heparin SQ Admission and Anticipated Discharge Date Admission Date: December 06, 2023 Subjective Pt seen in follow up, AMS, hypoxia/ pna Currently laying in bed in NAD, she is awake and able to answer simple questions but not able to hold meaningful conversation / confused Overnight required zyprexa and is currently in restraints Denies fever, chills, chest pain or shortness of breath Yesterday discussed w/ neurology and repeated CT head. Also met with pt's brother yesterday and discussed pt's clinical status.- for now decided to continue to observe to see how pt's mental status improves (or not), and if not - will discuss possible transfer to [facility] [place] in next few days (Dr. Chaney also updated on our conversation) After seeing the pt notified by RN that pt pulled out her Saab - gen. surgery consulted to eval, and need for poss. new access Review of Systems Review of Systems: All systems reviewed & are unremarkable except as noted in Subjective Physical Exam Physical Exam: General: thin, frail F in NAD HEENT: NC/AT CV: RRR Resp: no increased effort of breathing, CTAB, NC in nares Abdomen: Soft Extremities: No edema in lower extremities bilaterally. Neuro: awake but only able to answer some questions appropriately, not able to have meaningful conversation, speech fluent, moves extremities Results & Data Results & Data Vital Signs (Past 12 Hours) Vital Signs Temp Pulse Pulse Resp BP Pulse Ox O2 Del Method 12/14/23 08:02 36.5 C 60 18 142/84 H 99 Nasal Cannula 12/14/23 08:00 Nasal Cannula 12/14/23 02:30 36.8 C 60 18 144/73 H 97 Nasal Cannula 12/13/23 22:39 36.6 C 58 L 18 128/56 L 98 Nasal Cannula 12/13/23 22:11 56 L O2 Flow Rate 12/14/23 08:02 1.0 12/14/23 08:00 2 12/14/23 02:30 12/13/23 22:39 1.5 12/13/23 22:11 Laboratory Results 12/14/23 12/14/23 12/14/23 Range/Units 07:18 06:26 04:02 WBC 23.38 H (4.8-10.8) K/ul RBC 3.04 L (4.20-5.40) M/uL Hgb 8.9 L (12.0-16.0) g/dl Hct 28.4 L (37.0-47.0) % MCV 93.4 (80.0-100.0) fL MCH 29.3 (25.0-34.0) pg MCHC 31.3 L (32.0-36.0) g/dL RDW Std Deviation 54.0 H (36.4-46.3) fL RDW Coeff of Mike 17.7 H (11.5-14.5) % Plt Count 171 (130-400) K/uL MPV 13.5 H (9.4-12.4) fL Immature Gran % (Auto) 3.3 % Neut % (Auto) 78.5 % Lymph % (Auto) 12.7 % [place] % (Auto) 5.3 % Eos % (Auto) 0.0 % Baso % (Auto) 0.2 % Neut # (Auto) 18.38 H (1.40-6.50) K/uL Lymph # (Auto) 2.97 (1.20-3.40) K/uL [place] # (Auto) 1.23 H (0.11-0.59) K/uL Eos # (Auto) 0.00 (0.00-0.50) K/uL Baso # (Auto) 0.04 (0.00-0.20) K/uL Immature Gran # (Auto) 0.76 H (0.01-0.20) K/uL Absolute Nucleated RBC 0.03 (0.00-0.12) K/uL Nucleated RBC % (auto) 0.1 % Sodium 148 H (136-145) mmol/L Potassium 4.3 (3.5-5.1) mmol/L Chloride 110 H (98-107) mmol/L Carbon Dioxide 30 (21-32) mmol/L Anion Gap 8 (3-11) BUN 66 H (6-23) mg/dl Creatinine 0.89 (0.6-1.2) mg/dl Est Cr Clr Drug Dosing 43.7 ml/min Est GFR ( Amer) 81.6 ml/min Est GFR (Non-Af Amer) 70.4 ml/min BUN/Creatinine Ratio 74.2 H (10-20) Glucose 110 H (70-99(Fasting)) mg/dl POC Glucose 116 H 104 H (70-99) mg/dl Calcium 8.3 L (8.6-10.3) mg/dl Phosphorus 3.2 (2.5-4.9) mg/dl Magnesium 1.8 (1.7-2.4) mg/dl Total Bilirubin 0.4 (0.2-1.0) mg/dl AST 34 (13-39) U/L ALT 72 H (7-52) U/L Alkaline Phosphatase 86 (34-104) U/L Total Protein 5.3 L (6.0-8.3) gm/dl Albumin 3.0 L (3.4-5.0) gm/dl Globulin 2.3 L (2.5-4.0) gm/dl Albumin/Globulin Ratio 1.3 (0.9-2) 12/13/23 12/13/23 12/13/23 Range/Units 23:54 19:57 16:25 WBC (4.8-10.8) K/ul RBC (4.20-5.40) M/uL Hgb (12.0-16.0) g/dl Hct (37.0-47.0) % MCV (80.0-100.0) fL MCH (25.0-34.0) pg MCHC (32.0-36.0) g/dL RDW Std Deviation (36.4-46.3) fL RDW Coeff of Mike (11.5-14.5) % Plt Count (130-400) K/uL MPV (9.4-12.4) fL Immature Gran % (Auto) % Neut % (Auto) % Lymph % (Auto) % [place] % (Auto) % Eos % (Auto) % Baso % (Auto) % Neut # (Auto) (1.40-6.50) K/uL Lymph # (Auto) (1.20-3.40) K/uL [place] # (Auto) (0.11-0.59) K/uL Eos # (Auto) (0.00-0.50) K/uL Baso # (Auto) (0.00-0.20) K/uL Immature Gran # (Auto) (0.01-0.20) K/uL Absolute Nucleated RBC (0.00-0.12) K/uL Nucleated RBC % (auto) % Sodium (136-145) mmol/L Potassium (3.5-5.1) mmol/L Chloride (98-107) mmol/L Carbon Dioxide (21-32) mmol/L Anion Gap (3-11) BUN (6-23) mg/dl Creatinine (0.6-1.2) mg/dl Est Cr Clr Drug Dosing ml/min Est GFR ( Amer) ml/min Est GFR (Non-Af Amer) ml/min BUN/Creatinine Ratio (10-20) Glucose (70-99(Fasting)) mg/dl POC Glucose 222 H 246 H 114 H (70-99) mg/dl Calcium (8.6-10.3) mg/dl Phosphorus (2.5-4.9) mg/dl Magnesium (1.7-2.4) mg/dl Total Bilirubin (0.2-1.0) mg/dl AST (13-39) U/L ALT (7-52) U/L Alkaline Phosphatase (34-104) U/L Total Protein (6.0-8.3) gm/dl Albumin (3.4-5.0) gm/dl Globulin (2.5-4.0) gm/dl Albumin/Globulin Ratio (0.9-2) / Range/Units 11:32 WBC (4.8-10.8) K/ul RBC (4.20-5.40) M/uL Hgb (12.0-16.0) g/dl Hct (37.0-47.0) % MCV (80.0-100.0) fL MCH (25.0-34.0) pg MCHC (32.0-36.0) g/dL RDW Std Deviation (36.4-46.3) fL RDW Coeff of Mike (11.5-14.5) % Plt Count (130-400) K/uL MPV (9.4-12.4) fL Immature Gran % (Auto) % Neut % (Auto) % Lymph % (Auto) % [place] % (Auto) % Eos % (Auto) % Baso % (Auto) % Neut # (Auto) (1.40-6.50) K/uL Lymph # (Auto) (1.20-3.40) K/uL [place] # (Auto) (0.11-0.59) K/uL Eos # (Auto) (0.00-0.50) K/uL Baso # (Auto) (0.00-0.20) K/uL Immature Gran # (Auto) (0.01-0.20) K/uL Absolute Nucleated RBC (0.00-0.12) K/uL Nucleated RBC % (auto) % Sodium (136-145) mmol/L Potassium (3.5-5.1) mmol/L Chloride (98-107) mmol/L Carbon Dioxide (21-32) mmol/L Anion Gap (3-11) BUN (6-23) mg/dl Creatinine (0.6-1.2) mg/dl Est Cr Clr Drug Dosing ml/min Est GFR ( Amer) ml/min Est GFR (Non-Af Amer) ml/min BUN/Creatinine Ratio (10-20) Glucose (70-99(Fasting)) mg/dl POC Glucose 166 H (70-99) mg/dl Calcium (8.6-10.3) mg/dl Phosphorus (2.5-4.9) mg/dl Magnesium (1.7-2.4) mg/dl Total Bilirubin (0.2-1.0) mg/dl AST (13-39) U/L ALT (7-52) U/L Alkaline Phosphatase (34-104) U/L Total Protein (6.0-8.3) gm/dl Albumin (3.4-5.0) gm/dl Globulin (2.5-4.0) gm/dl Albumin/Globulin Ratio (0.9-2) Medications Administered Current Inpatient Medications Dextrose (Dextrose 50% 50 Ml Syringe) 25 - 50 ml IV UD PRN; Protocol PRN Reason: Hypoglycemia Protocol Stop: 01/07/24 15:14 Glucagon (Glucagon For Inj 1 Mg Vial) 1 mg IM UD PRN; Protocol PRN Reason: Hypoglycemia Protocol Stop: 01/07/24 15:14 Glucose (Glucose 40% Gel 15 Gm Tube) 15 - 30 gm PO UD PRN; Protocol PRN Reason: Hypoglycemia Protocol Stop: 01/07/24 15:14 Glucose (Glucose 10 Tab/Tube) 4 - 8 tab PO UD PRN; Protocol PRN Reason: Hypoglycemia Protocol Stop: 01/07/24 15:14 Heparin Sodium (Beef Lung) (Heparin 10 Unit/Ml 5 Ml Flush) 5 ml FLUSH PRN PRN PRN Reason: Flush Stop: 01/05/24 19:36 Heparin Sodium (Porcine) (Heparin Sod 5,000 Unit/0.5 Ml Vial) 5,000 units SQ Q12 [facility] Stop: 01/05/24 20:59 Last Admin: 12/08/23 20:32 Dose: 5,000 units Pantoprazole Sodium 40 mg/ (Syringe) 10 mls @ 5 mls/min IV DAILY@1100 [facility] Stop: 01/07/24 10:59 Last Admin: 12/13/23 09:50 Dose: 5 mls/min Dextrose (D10w) 1,000 mls @ 0 mls/hr IV .Q0M PRN PRN Reason: protocol (see label comments) Stop: 01/07/24 13:10 Azithromycin 250 mg/ Dextrose 252.5 mls @ 125 mls/hr IV Q24H [facility] Stop: 12/18/23 08:59 Last Admin: 12/14/23 08:54 Dose: 125 mls/hr Acetaminophen 600 mg/ EMPTY (BAG) 60 mls @ 0 mls/hr IV Q8H PRN; Protocol PRN Reason: Pain/Fever Stop: 01/09/24 09:58 Last Infusion: 12/13/23 20:45 Dose: Infused Methylprednisolone 20 mg/ (Syringe) 0.32 mls @ 1.5 mls/min IV Q12H [facility] Stop: 01/12/24 17:59 Last Admin: 12/14/23 05:40 Dose: 1.5 mls/min Amino Acids/Dextrose 771.4 ml/ (Nutrition (Parenteral)) 771.4 mls @ 96.425 mls/hr IV .Q8H [facility]; Protocol Stop: 12/14/23 23:59 Insulin Aspart (Insulin Aspart Per Unit Charge) 0 units SC Q4 [facility]; Protocol Stop: 01/06/24 16:59 Last Admin: 12/14/23 07:44 Dose: Not Given Insulin Glargine (Lantus Per Unit Charge) 10 units SC DAILY [facility]; Protocol Stop: 01/11/24 08:59 Last Admin: 12/14/23 09:04 Dose: 10 units Miscellaneous (Carbohydrates For Hypoglycemia ) 15 - 30 gm PO UD PRN PRN Reason: Hypoglycemia Treatment Stop: 01/07/24 15:14 Miscellaneous (Tpn Stop Order) 1 each N/A DAILY@0000 [facility] Stop: 01/14/24 00:00 Miscellaneous (Stop Clinolipid) 1 each N/A MoWeFr@2200 [facility] Stop: 01/14/24 21:59 Miscellaneous Information (Tpn/Ppn Consult Pharmacy) 1 each N/A UD PRN PRN Reason: Consult Stop: 01/05/24 17:15 Miscellaneous Information (Pharmacy Glycemic Mgmt Consult) 1 each N/A UD PRN; Protocol PRN Reason: Consult Stop: 01/06/24 16:36 Olanzapine (Olanzapine 10 Mg/2.1 Ml Sdv) 2.5 mg IM Q4H PRN PRN Reason: Agitation Stop: 01/12/24 23:54 Last Admin: 12/14/23 09:06 Dose: 2.5 mg
[2023-12-14] MEDS: DEXTROSE 5% 1,000 ML IV SCH (11:33)
[2023-12-14] MEDS: MAGNESIUM SULFATE / D5W 1 GM/100 ML BAG IV ONE (11:33)
--- NOTE | 2023-12-14 11:55 | Nephrology Progress Note ---
Date of Service December 14, 2023 Assessment & Plan (1) Acute kidney injury: Plan: improving/resolved ROBINSON in the setting of Septic Shock with pneumonia and solitary kidney after 11/2022 nephrectomy d/t pain/stones/poor function. Cr is down to 0.9 today from peak of 2.2 and baseline of about 1.2, though difficult to pinpoint since she had 2 extended admissions to [facility] this spring prior to current admission. she had stage 2 ROBINSON first admission, and stage 1 ROBINSON w/ second one. ROBINSON is from [facility] in a vulnerable patient with pre existing CKD and now with Pneumonia/sepsis. some creatinine improvement may actually reflect less clinical improvement than ongoing malnutrition; pt historically TPN dependent and nutrition has been following -palliative approach under consideration -if not for [employer], daily bmp and monitor I and O. -No need for IV fluids unless hypotensive Will sign off -if not for palliative approach, recommend hospital d/c appt w/ me in [facility] CKD clinic 3-4 wks after d/c; routine CKD labs and UACM, ACR to be ordered by renal nurse and done no more than 3 days before appt -can resume prior to admission medications as indicated Admission and Anticipated Discharge Date Admission Date: December 06, 2023 Subjective tells me she's desperate to get out of hospital and has all her licenses ready. Denies shortness of breath, edema, generalized weakness, nausea Review of Systems 2 Review of Systems: All systems reviewed & are unremarkable except as noted in Subjective Physical Exam 2 Constitutional: well developed, + acute distress (Mild from anxiety), + cachectic and + behavioral limitations (In soft restraints) Eyes: EOM intact bilaterally ENMT: Ears: no external ear abnormality Nose: no external nose abnormality Mouth: + dry oral mucous membranes and + edentulous Neck: no nuchal rigidity Respiratory: normal respiratory effort Auscultation: + diminished lung sounds Cardiovascular: Rate/Rhythm: regular rate and regular rhythm Extremities: n o edema Gastrointestinal (Abdomen): Inspection/Auscultation: normal bowel sounds and + scaphoid Percussion/Palpation: abdomen soft; abdomen nontender Musculoskeletal: Extremities: strength 5/5 throughout Skin: no rashes, warm and dry Neurologic: holland, fluent speech, no tremor Psychiatric: Orientation: alert, oriented to person and oriented to place A ffect: + anxious affect Results & Data Vital Signs (Past 12 Hours) Vital Signs Temp Pulse Resp BP Pulse Ox O2 Del Method O2 Flow Rate 12/14/23 08:02 36.5 C 60 18 142/84 H 99 Nasal Cannula 1.0 12/14/23 08:00 Nasal Cannula 2 12/14/23 02:30 36.8 C 60 18 144/73 H 97 Nasal Cannula Laboratory Results 12/14/23 06:26 12/14/23 06:26
--- NOTE | 2023-12-14 12:03 | Pharmacy Report ---
Pharmacy PN Follow-up Note - Date of Service December 14, 2023 - Subjective Patient is currently on day #6 of TPN for chronic malnutrition. - Objective Height & Weight (Last Documented) Height 5 ft 3 in Weight 41.2 kg Diet Order(s) 12/08/23 05:38 NPO Intake & Ouput (24hrs) 12/13/23 12/14/23 12/15/23 06:59 06:59 06:59 Intake Total 1070.8 / 1070.8 1333.8 / 1333.8 Output Total 775 / 775 825 / 825 Balance 295.8 / 295.8 508.8 / 508.8 Selected Laboratory Results 12/14/23 06:26 Sodium 148 H Potassium 4.3 Chloride 110 H Carbon Dioxide 30 Anion Gap 8 BUN 66 H Creatinine 0.89 Est GFR ( Amer) 81.6 Est GFR (Non-Af Amer) 70.4 BUN/Creatinine Ratio 74.2 H Glucose 110 H Calcium 8.3 L Phosphorus 3.2 Magnesium 1.8 Total Bilirubin 0.4 AST 34 ALT 72 H Alkaline Phosphatase 86 - Assessment & Plan Assessment: * Sodium and Chloride remain elevated. Limiting each in TPN bag. All other electrolytes within normal limits. * BSGs remain elevated during 8 hours TPN is infusing. Will increase insulin in TPN bag to 20 units today. No change to subcutaneous regimen. * Lipids have been changed to 40 g thrice weekly (MWF). Continue to monitor Triglycerides closely. Dropped to 140 yesterday with repeat level for tomorrow. * Dietitian recommends 250 cc of D5W daily to meet patient's fluid goals since no fluid intake via PO route. Provider accepting of this today. Reassess daily. Plan: * For Day #6 of TPN administration, the following will be ordered: * Macronutrients: * Amino Acids: 58 grams/day * Dextrose: 101 grams/day * Lipids: 40 grams on Mondays, Wednesdays, and Fridays * Micronutrients: * Potassium acetate: 40 mEq/day * Sodium phosphate: 21 mMol/day * Magnesium sulfate: 8.12 mEq/day * Calcium gluconate: 4.65 mEq/day * Multivitamins: 10 mL/day * Trace elements: 1 mL/day * Thiamine: 100 mg/day * Folic Acid: 1 mg/day * Insulin: 20 units/day * Total volume of 771.4 mL will be infused over 8 hours and will provide 573 kcal/day * Labs will be ordered per PN protocol. * Pharmacy will follow and adjust PN orders on a daily basis. Thank you!
--- NOTE | 2023-12-14 13:39 | Surgery Consultation ---
Date of Consultation December 14, 2023 Assessment & Plan (1) Protein calorie malnutrition: This is a 58yF with a PMH of gastric bypass now with chronic malabsorption, cholecystectomy, depression/anxiety, who presents to the [facility] ED on 12/05 with shortness of breath. After workup was obtained the patient was found to be septic from likely pneumonia and a UTI. She required a couple day stay in the ICU for supportive care and is now recovering on the telemetry unit. We have been consulted today as the patient pulled out her Blood catheter of which she has been receiving TPN (per patient over the last year). The patient had a left chest tunneled CVC insertion placed a [facility] last year. She does not remember pull ing it out today. She states she wants to "cancel TPN" and no longer wants it. Speech was in the room and are going to clear her for a special diet as there were no overt signs of aspiration on bedside eval. - Today labs show a WBC 23, Hbg 8.9, Cr 0.8. Vitals are stable. WBC could be elevated as she is on steroids per pulmonology. She is also currently on a course of antibiotics for her pneumonia. We will not place a port while she is being treated for any infection. We will recommend a PICC line in the interim if patient wishes to proceed with TPN as she has been for her meaningful nutrition. She may also reconsider a blood in the future by vascular surgery or follow up with us as an outpatient to discuss the possibility of a port in the future if remains an indication and patient wishes to proceed. Supervising Physician Co-Signing Physician Notes I have discussed this patient with the surgical PA. I agree with the plan History of Present Illness Attending Physician: Yifan Redman MD History of Present Illness This is a 58yF with a PMH of gastric bypass, cholecystectomy, depression/anxiety, who presents to the [facility] ED on 12/05 with shortness of breath. Patient was found to be septic from likely pneumonia and a UTI. She required a couple day stay in the ICU for initial care and is now on the telemetry unit. We have been consulted today as the patient pulled out her Hick man catheter of which she has been receiving TPN (per patient over the last year). She has a history of chronic malabsorption s/p her gastric bypass. The patient had a left chest tunneled CVC insertion placed a [facility] last year. She does not remember pulling it out today. She states she wants to "cancel TPN" and no longer wants it. She wants to eat. Speech was in the room and are going to clear her for a special diet. The patient is able to answer some questions appropriately and others not so much. She says we are in the when asked what year it is, knows she is in the hospital but then states we were on our way too and from [place] and then talks about jojoer, she is able to recall her name and date of accurately. She stumbles her words and reports frustration when she realizes she is unable to answer some questions appropriately. She tells me that she lives at home alone and has a friend that checks in on her. Allergies Allergy/AdvReac Type Severity Reaction Status Date / Time amoxicillin Allergy Severe Anaphylaxis Verified 12/06/23 15:52 Penicillins Allergy Severe Anaphylaxis Verified 12/06/23 15:52 Sulfa (Sulfonamide Allergy Severe Anaphylaxis Verified 12/05/22 15:37 Antibiotics) ragweed pollen Allergy Intermediate swelling Verified 12/05/22 15:37 aspirin AdvReac Unknown No an Verified 12/05/22 15:37 allergy- cannot take post-bypass surgery Home Medications Medication Instructions Recorded Confirmed Type ergocalciferol (vitamin D2) 1,250 50,000 unit PO MOWEFR #0 caps 11/26/13 12/06/23 History mcg (50,000 unit) capsule cyanocobalamin (vitamin B-12) 1 dose IM MONTHLY ##0 06/11/14 12/06/23 History 1,000 mcg/mL injection solution diphenoxylate-atropine 2.5 1 tab PO QID PRN Diarrhea #0 tabs 08/02/16 12/06/23 History mg-0.025 mg tablet (Lomotil) rizatriptan 10 mg tablet 10 mg PO DAILY PRN Migraines 11/06/18 12/06/23 History alprazolam 0.25 mg tablet 0.25 mg PO HS PRN Anxiety 06/28/19 12/06/23 History lihouqokqe-zfwospzdusydh-iqvhicjk 1 tab PO Q6H PRN Pain 06/28/19 12/06/23 History 50 mg-325 mg-40 mg tablet acetaminophen 500 mg tablet 500 mg PO Q4H PRN Pain 08/23/20 12/06/23 History calcitriol 0.25 mcg capsule 0.25 mcg PO 3XWK 12/05/22 12/06/23 History calcium carbonate (Oyster Shell 500 mg PO BID 12/05/22 12/06/23 History Calcium 500) duloxetine 60 mg capsule,delayed 120 mg PO DAILY 12/05/22 12/06/23 History release mirtazapine 45 mg tablet 45 mg PO HS 12/05/22 12/06/23 History omeprazole 20 mg capsule,delayed 20 mg PO QAM 12/05/22 12/06/23 History release ondansetron 4 mg disintegrating 4 mg PO Q8H PRN NAUSEA/VOMITING 12/05/22 12/06/23 History tablet promethazine 25 mg tablet 25 mg PO Q6H PRN NAUSEA/VOMITING 12/05/22 12/06/23 History sumatriptan succinate 50 mg tablet 50 mg PO DIRECTED PRN ATTACKS 12/05/22 12/06/23 History PER [facility] tramadol 50 mg tablet 50 mg PO Q8H PRN Pain 12/05/22 12/06/23 History buspirone 5 mg tablet 5 mg PO BID 12/06/23 12/06/23 History olanzapine 5 mg disintegrating 5 mg translingual DAILY 12/06/23 12/06/23 History tablet pregabalin 25 mg capsule 25 mg PO BID 12/06/23 12/06/23 History Patient History Medical History Weight loss, unintentional Poor appetite at times Nausea at times Kidney stones Zinc poisoning Surgical History History of lithotripsy History of esophagogastroduodenoscopy (EGD) History of colonoscopy History of cystoscopy with stent placement 08/2020 Hx of cardiac cath jul 01 2019. no stents Family History Mother Coronary heart disease Other No family history of adverse response to anesthesia Social History Smoking Status: Current every day smoker Tobacco Type: Cigarettes packs per day: 1; Cigarettes Per Day: 8-10/day; Second Hand Exposure: No; Do You Dip or Chew Tobacco: No; Hx Alcohol Use: Yes Alcohol type: hard liquor Hx Substance Use: Yes Last Used Substance: Days (ago) Last Used Substance Other:: 12/04/2023 Preferred Language: Occitan Communication Ability: Effective Visual Impairment: No Limitations Hearing Ability: Normal Professor Of Violin Required: No Beliefs That Will Affect Care: None marital status: Current Living Situation: Spouse current occupational status: employed and disabled 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 able to answer appropriately to some questions and inaccurately to others regarding time and place. oriented to person. initially on UE restraints that were removed Constitutional: + frail appearing Respiratory: on supplemental O2 Gastrointestinal (Abdomen): Percussion/Palpation: abdomen soft Skin: L chest with 4x4 gauze bandage, clean/intact Results & Data Vital Signs (Past 12 Hours) Vital Signs Temp Pulse Resp BP Pulse Ox O2 Del Method O2 Flow Rate 12/14/23 12:14 97.5 F L 63 17 143/83 H 100 Nasal Cannula 1.0 12/14/23 08:02 97.7 F 60 18 142/84 H 99 Nasal Cannula 1.0 12/14/23 08:00 Nasal Cannula 2 12/14/23 02:30 98.2 F 60 18 144/73 H 97 Nasal Cannula PG Care Time/CCT Total # of Minutes Spent Total Time Spent with Patient: Total time spent is greater than 50% in coordination of care (as documented) at patient's floor/unit and/or counseling patient: Coding Level of Care Code INT OBSERVATION CARE 30M LVL 1 Diagnoses Protein calorie malnutrition E46
[2023-12-14] MEDS: [UNRECOGNIZED DRUG - OTHER] IV SCH (16:52)
[2023-12-14] MEDS: CENTRAL TPN IV SCH (16:52)
[2023-12-14] MEDS: INSULIN ASPART PER UNIT CHARGE SC SCH (21:02)
[2023-12-14] MEDS: TPN STOP ORDER SCH (23:41)
[2023-12-15] MEDS: INSULIN ASPART PER UNIT CHARGE SC SCH ×2 (00:14→13:55)
[2023-12-15 06:11] LABS: Hematocrit (blood only) 28.7 % (37.0-47.0); Hemoglobin 8.8 g/dl (12.0-16.0); Mean Corpuscular Hgb Conc 30.7 g/dL (32.0-36.0); Mean Corpuscular Volume 94.7 fL (80.0-100.0); Mean Platelet Volume 13.5 fL (9.4-12.4); Platelet Count 165 K/uL (130-400); RDW Coefficient of Variation 18.1 % (11.5-14.5); RDW Standard Deviation 56.2 fL (36.4-46.3); Red Blood Count 3.03 M/uL (4.20-5.40); White Blood Count 15.33 K/ul (4.8-10.8)
[2023-12-15 06:20] LABS: BUN Creatinine Ratio 52.1 (10-20); Calcium 8.6 mg/dl (8.6-10.3); Creatinine Clr Calc Pharmacy 40.7 ml/min; Est GFR (African American) 74.5 ml/min; Est GFR (Non-African American) 64.3 ml/min; Magnesium 1.9 mg/dl (1.7-2.4); Phosphorus 3.5 mg/dl (2.5-4.9); Potassium 4.3 mmol/L (3.5-5.1)
--- NOTE | 2023-12-15 07:56 | Hospitalist Progress Note ---
Date of Service December 15, 2023 Assessment & Plan (1) Protein calorie malnutrition: (2) History of nephrectomy: (3) Pneumonia: (4) Septic shock: (5) Acidosis: (6) Leukocytosis: (7) Acute hypoxemic respiratory failure: Plan Patient is a 58 year old female with PMHx significant for chronic malabsorption syndrome post bypass, severe protein calorie malnutrition on TPN, iron deficiency anemia, copper deficiency, h/o right nephrectomy in 2022, bipolar disorder, anxiety, depression, tobacco use, migraine headache, nonspecific white matter changes, myelopathy who presented to the ER with multiple medical complaints including SOB, dry mouth and speech changes. Septic Shock Pneumonia Complicated UTI Acute hypoxic respiratory Failure Upon arrival to ER patient noted to be hypotensive and hypoxic in the 70's. In ER afebrile, P: 94, R: 30, BP: 87/56, 78% on RA CTA Chest: No pulmonary embolus. Groundglass opacities compatible with pneumonia and/or aspiration. CT Head, CTA Head & neck: unremarkable WBC: 36.7. Lactate: 1.6, procalcitonin: 4.5 Was on 10L nonrebreather with O2 sat low 90's UA was suggestive of infection, urine culture grew E coli and Klebsiella Blood Cx x2 sets NGTD Fungal Cx NGTD Drug screen negative Suspect sepsis secondary to pneumonia, UTI. In ER given meropenem, vancomycin, 2 L NSS Was admitted to the ICU, Was on Cefepime (transitioned to Rocephin) and azithromycin and Caspofungin. Caspofungin d/c Also on pressors for BP support as well as hydrocortisone. Pressors have since been weaned off, off steroids Was on hiFlo oxygen, wean as tolerated Pulmonology consulted, appreciate recs - transition to PO prednisone, currently on RA (12/14) Continue to monitor Acute metabolic Encephalopathy Pt now confused Likely in setting of above. Delirium precautions. Frequent reorientation, avoid sedating medications Continue to monitor 12/10- urgent head CT ordered, no stroke but concern for demyelinating disease. MRI brain ordered wo contrast due to pt's ROBINSON/CKD, Neurology consulted, appreciate recs. 12/11- pt with noted stent on KUB, cannot be cleared for MRI. Discussed with Neurology Dr Chaney who states that the MRI is needed and should either discuss comfort measures/palliative care with family or have pt transferred for further neurological evaluation. Per nursing, a family member will be coming in later today and pt's case and status will be discussed then. 12/12 - pt is now awake and talkative but does not really have eye contact , prefers looking to the side. able to answer simple questions but not able to hold meaningful conversation. discussed w/ Dr. Chaney - and CT had obtained. Also updated and discussed with pt's brother at the bedside. 12/13 awake and able to answers simple questions - but still confused and not able to have meaningful conversation. Required zyprexa overnight, in restraints this AM. 12/14 awake alert, but still confused, sitting in chair, no restraints at this time Acute kidney injury Metabolic acidosis History of nephrectomy Cr: 2.2 on admission ABG pH of 7.21, HCO3 of 8, pCO2 of 19. AG of 9 at that time. Recent ROBINSON end of 10/2023 with Cr: 1.6 on 12/03 and 1.7 on 11/21. Prior baseline Cr: 1.0-1.2 IVF in ER. Did have CTA with contrast in ER Monitor renal function Nephrology consulted, appreciate recs -was on bicarb drip, since discontinued -Cr now at baseline Continue to monitor Bradycardia Episodes on 12/09 in setting of morphine d/c morphine, consider alternative nonnarcotic for pain management Continue to monitor on telemetry Stable/resolved at this time Acute on chronic Anemia Hgb below 7 on 12/08 Baseline of 7-8 required 2 physician consent as pt in acute delirium, family cannot be contacted Anemia panel Likely dilutional Continue to monitor H/H Protein calorie malnutrition Aspiration S/P bypass BMI: 14 On TPN 4 days a week at home Nutrition consult, speech consult Currently NPO due to aspiration TPN re-started on 12/07 Has been restarted 12/13 Pt pulled out her Saab which was used for TPN, gen. surg. consulted 12/14 pt has now diet, but poor oral intake Depression with anxiety: History Bipolar disorder On home buspirone, duloxetine, olanzapine H/O migraine Denies current [place] Tobacco use Smokes 1/2ppd Smoking cessation encouraged DVT Prophylaxis: Heparin SQ Admission and Anticipated Discharge Date Admission Date: December 06, 2023 Subjective Pt seen in follow up, AMS, hypoxia/ pna Currently sitting up in chair in NAD, on RA she is awake and able to answer simple questions but not able to hold meaningful conversation / confused RN present at the bedside Denies fever, chills, chest pain or shortness of breath Yesterday pulled her Saab - pt not aware she did that Review of Systems Review of Systems: All systems reviewed & are unremarkable except as noted in Subjective Physical Exam Physical Exam: General: thin, frail F in NAD, on RA HEENT: NC/AT CV: RRR Resp: no increased effort of breathing, no wheezing Abdomen: Soft Extremities: No edema in lower extremities bilaterally. Neuro: awake but only able to answer some questions appropriately, not able to have meaningful conversation, speech fluent, moves extremities Results & Data Results & Data Vital Signs (Past 12 Hours) Vital Signs Temp Pulse Resp BP Pulse Ox O2 Del Method 12/15/23 02:56 36.4 C L 58 L 11 L 155/73 H 96 Room Air 12/14/23 23:13 36.7 C 61 15 132/72 97 Room Air 12/14/23 20:07 36.7 C 75 21 123/71 96 Room Air Laboratory Results 12/15/23 12/15/23 12/15/23 Range/Units 07:18 05:45 03:56 WBC 15.33 H (4.8-10.8) K/ul RBC 3.03 L (4.20-5.40) M/uL Hgb 8.8 L (12.0-16.0) g/dl Hct 28.7 L (37.0-47.0) % MCV 94.7 (80.0-100.0) fL MCH 29.0 (25.0-34.0) pg MCHC 30.7 L (32.0-36.0) g/dL RDW Std Deviation 56.2 H (36.4-46.3) fL RDW Coeff of Mike 18.1 H (11.5-14.5) % Plt Count 165 (130-400) K/uL MPV 13.5 H (9.4-12.4) fL Sodium 145 (136-145) mmol/L Potassium 4.3 (3.5-5.1) mmol/L Chloride 109 H (98-107) mmol/L Carbon Dioxide 30 (21-32) mmol/L Anion Gap 6 (3-11) BUN 50 H (6-23) mg/dl Creatinine 0.96 (0.6-1.2) mg/dl Est Cr Clr Drug Dosing 40.7 ml/min Est GFR ( Amer) 74.5 ml/min Est GFR (Non-Af Amer) 64.3 ml/min BUN/Creatinine Ratio 52.1 H (10-20) Glucose 90 (70-99(Fasting)) mg/dl POC Glucose 101 H 92 (70-99) mg/dl Calcium 8.6 (8.6-10.3) mg/dl Phosphorus 3.5 (2.5-4.9) mg/dl Magnesium 1.9 (1.7-2.4) mg/dl Triglycerides 101 (0-150) mg/dl 12/15/23 12/14/23 12/14/23 Range/Units 00:10 20:33 16:07 WBC (4.8-10.8) K/ul RBC (4.20-5.40) M/uL Hgb (12.0-16.0) g/dl Hct (37.0-47.0) % MCV (80.0-100.0) fL MCH (25.0-34.0) pg MCHC (32.0-36.0) g/dL RDW Std Deviation (36.4-46.3) fL RDW Coeff of Mike (11.5-14.5) % Plt Count (130-400) K/uL MPV (9.4-12.4) fL Sodium (136-145) mmol/L Potassium (3.5-5.1) mmol/L Chloride (98-107) mmol/L Carbon Dioxide (21-32) mmol/L Anion Gap (3-11) BUN (6-23) mg/dl Creatinine (0.6-1.2) mg/dl Est Cr Clr Drug Dosing ml/min Est GFR ( Amer) ml/min Est GFR (Non-Af Amer) ml/min BUN/Creatinine Ratio (10-20) Glucose (70-99(Fasting)) mg/dl POC Glucose 102 H 116 H 131 H (70-99) mg/dl Calcium (8.6-10.3) mg/dl Phosphorus (2.5-4.9) mg/dl Magnesium (1.7-2.4) mg/dl Triglycerides (0-150) mg/dl 12/14/23 Range/Units 11:15 WBC (4.8-10.8) K/ul RBC (4.20-5.40) M/uL Hgb (12.0-16.0) g/dl Hct (37.0-47.0) % MCV (80.0-100.0) fL MCH (25.0-34.0) pg MCHC (32.0-36.0) g/dL RDW Std Deviation (36.4-46.3) fL RDW Coeff of Mike (11.5-14.5) % Plt Count (130-400) K/uL MPV (9.4-12.4) fL Sodium (136-145) mmol/L Potassium (3.5-5.1) mmol/L Chloride (98-107) mmol/L Carbon Dioxide (21-32) mmol/L Anion Gap (3-11) BUN (6-23) mg/dl Creatinine (0.6-1.2) mg/dl Est Cr Clr Drug Dosing ml/min Est GFR ( Amer) ml/min Est GFR (Non-Af Amer) ml/min BUN/Creatinine Ratio (10-20) Glucose (70-99(Fasting)) mg/dl POC Glucose 151 H (70-99) mg/dl Calcium (8.6-10.3) mg/dl Phosphorus (2.5-4.9) mg/dl Magnesium (1.7-2.4) mg/dl Triglycerides (0-150) mg/dl Medications Administered Current Inpatient Medications Dextrose (Dextrose 50% 50 Ml Syringe) 25 - 50 ml IV UD PRN; Protocol PRN Reason: Hypoglycemia Protocol Stop: 01/07/24 15:14 Glucagon (Glucagon For Inj 1 Mg Vial) 1 mg IM UD PRN; Protocol PRN Reason: Hypoglycemia Protocol Stop: 01/07/24 15:14 Glucose (Glucose 40% Gel 15 Gm Tube) 15 - 30 gm PO UD PRN; Protocol PRN Reason: Hypoglycemia Protocol Stop: 01/07/24 15:14 Glucose (Glucose 10 Tab/Tube) 4 - 8 tab PO UD PRN; Protocol PRN Reason: Hypoglycemia Protocol Stop: 01/07/24 15:14 Heparin Sodium (Beef Lung) (Heparin 10 Unit/Ml 5 Ml Flush) 5 ml FLUSH PRN PRN PRN Reason: Flush Stop: 01/05/24 19:36 Heparin Sodium (Porcine) (Heparin Sod 5,000 Unit/0.5 Ml Vial) 5,000 units SQ Q12 [facility] Stop: 01/05/24 20:59 Last Admin: 12/08/23 20:32 Dose: 5,000 units Pantoprazole Sodium 40 mg/ (Syringe) 10 mls @ 5 mls/min IV DAILY@1100 [facility] Stop: 01/07/24 10:59 Last Admin: 12/14/23 11:29 Dose: 5 mls/min Dextrose (D10w) 1,000 mls @ 0 mls/hr IV .Q0M PRN PRN Reason: protocol (see label comments) Stop: 01/07/24 13:10 Azithromycin 250 mg/ Dextrose 252.5 mls @ 125 mls/hr IV Q24H [facility] Stop: 12/18/23 08:59 Last Infusion: 12/14/23 19:09 Dose: Infused Acetaminophen 600 mg/ EMPTY (BAG) 60 mls @ 0 mls/hr IV Q8H PRN; Protocol PRN Reason: Pain/Fever Stop: 01/09/24 09:58 Last Infusion: 12/13/23 20:45 Dose: Infused Methylprednisolone 20 mg/ (Syringe) 0.32 mls @ 1.5 mls/min IV Q12H [facility] Stop: 01/12/24 17:59 Last Admin: 12/15/23 04:57 Dose: 1.5 mls/min Insulin Aspart (Insulin Aspart Per Unit Charge) 0 units SC ACHS [facility]; Protocol Stop: 01/13/24 20:59 Last Admin: 12/14/23 21:02 Dose: Not Given Insulin Glargine (Lantus Per Unit Charge) 5 units SC DAILY [facility]; Protocol Stop: 01/11/24 08:59 Miscellaneous (Carbohydrates For Hypoglycemia ) 15 - 30 gm PO UD PRN PRN Reason: Hypoglycemia Treatment Stop: 01/07/24 15:14 Miscellaneous (Tpn Stop Order) 1 each N/A DAILY@0000 [facility] Stop: 01/14/24 00:00 Last Admin: 12/14/23 23:41 Dose: Not Given Miscellaneous (Stop Clinolipid) 1 each N/A MoWeFr@2200 [facility] Stop: 01/14/24 21:59 Miscellaneous Information (Tpn/Ppn Consult Pharmacy) 1 each N/A UD PRN PRN Reason: Consult Stop: 01/05/24 17:15 Miscellaneous Information (Pharmacy Glycemic Mgmt Consult) 1 each N/A UD PRN; Protocol PRN Reason: Consult Stop: 01/06/24 16:36 Olanzapine (Olanzapine 10 Mg/2.1 Ml Sdv) 2.5 mg IM Q4H PRN PRN Reason: Agitation Stop: 01/12/24 23:54 Last Admin: 12/14/23 09:06 Dose: 2.5 mg
[2023-12-15] MEDS: LANTUS PER UNIT CHARGE SC SCH (08:09)
--- NOTE | 2023-12-15 08:36 | Pulmonology Progress Note ---
Date of Service December 15, 2023 Assessment & Plan (1) Acute hypoxemic respiratory failure: (2) Abnormal CT scan of lung: Plan Impression: 58-year-old female with severe malnutrition on outpatient TPN as well as bipolar with diffuse pulmonary infiltrates and hypoxemic respiratory failure. She has been initiated on empiric steroids as she was too unstable to consider bronchoscopy. Her oxygen requirement has resolved Recommendations: 1. Diffuse pulmonary infiltrates: Etiology unclear. Treated empirically with methylprednisolone for possible alveolar hemorrhage as well as inflammatory etiologies. Her hypoxemia has now resolved. Will transition to prednisone 10 mg a day for 3 days at which point in time steroids can be discontinued. 2. Hypoxemic respiratory failure: Resolved 3. Pulmonary will sign off at this point in time. Feel free to contact us with additional questions or concerns. Admission and Anticipated Discharge Date Admission Date: December 06, 2023 Subjective Patient seen and examined. EMR reviewed. Patient's mental status and sensorium are significantly better today. She is able to answer questions. She is tolerating a diet. She been weaned to room air. Review of Systems 2 Review of Systems: Please refer to hospitalist notes. No additions or deletions Physical Exam 2 Physical Exam: General: thin, frail F in NAD HEENT: NC/AT CV: RRR Resp: no increased effort of breathing, CTAB, no wheezing rales or rhonchi Abdomen: Soft Extremities: No edema in lower extremities bilaterally. Neuro: No focal deficit Results & Data Results & Data Vital Signs (Past 12 Hours) Vital Signs Temp Pulse Resp BP Pulse Ox O2 Del Method 12/15/23 07:10 36.4 C L 62 17 142/83 H 96 Room Air 12/15/23 02:56 36.4 C L 58 L 11 L 155/73 H 96 Room Air 12/14/23 23:13 36.7 C 61 15 132/72 97 Room Air Laboratory Results 12/15/23 05:45 12/15/23 05:45 Diagnostic Findings No new imaging PG Care Time/CCT Total # of Minutes Spent Total Time Spent with Patient: Total time spent is greater than 50% in coordination of care (as documented) at patient's floor/unit and/or counseling patient: Coding Level of Care Code 54757 SUB INP/OBS CARE 2/35MIN Diagnoses Acute hypoxemic respiratory failure J96.[address] scan of lung R91.8
[2023-12-15] MEDS: predniSONE 10 MG TABLET PO SCH (09:18)
--- NOTE | 2023-12-15 10:51 | Surgery Progress Note ---
Date of Service December 15, 2023 Assessment & Plan (1) Cachexia: (2) Pneumonia: Plan Recommend PICC for TPN for now if the patient agrees to continue with TPN. May follow up in the office after she has completed her course of antibiotics to discuss more permanent access should she continue on TPN. Surgery will sign off at this time. Admission and Anticipated Discharge Date Admission Date: December 06, 2023 Subjective I have seen and examined this patient this am. She states this am that she has been recently able to tolerate food and will be refusing an further TPN because she is tired of it. Physical Exam Constitutional: + ill appearing; + not healthy appearing , not in distress and not diaphoretic Respiratory: normal respiratory effort; no respiratory distress, no labored breathing and does not use accessory muscles Cardiovascular: Rate/Rhythm: regular rate; not tachycardic Results & Data Vital Signs (Past 12 Hours) Vital Signs Temp Pulse Resp BP Pulse Ox O2 Del Method 12/15/23 07:10 36.4 C L 62 17 142/83 H 96 Room Air 12/15/23 02:56 36.4 C L 58 L 11 L 155/73 H 96 Room Air 12/14/23 23:13 36.7 C 61 15 132/72 97 Room Air PG Care Time/CCT Total # of Minutes Spent Total Time Spent with Patient: Total time spent is greater than 50% in coordination of care (as documented) at patient's floor/unit and/or counseling patient: Coding Level of Care Code 95318 SUB INP/OBS CARE 1/25MIN Diagnoses Cachexia R64 Pneumonia J18.9
--- NOTE | 2023-12-15 11:51 | Pharmacy Report ---
Pharmacy Glycemic Short Note 2 - Date of Service December 15, 2023 - Glycemic Short BSG Results (Last 24 hours): 12/14/23 12/14/23 12/15/23 16:07 20:33 00:10 Glucose POC Glucose 131 H 116 H 102 H 12/15/23 12/15/23 12/15/23 03:56 05:45 07:18 Glucose 90 POC Glucose 92 101 H 12/15/23 11:15 Glucose POC Glucose 112 H OUTPATIENT ANTIDIABETIC REGIMEN: * Patient does not appear to be on any antidiabetic medications at home. * HbA1c: 6% (12/08/23) ASSESSMENT: 12/14: * Patient removed central line yesterday so received no TPN. Only received 10 units of basal + 1 unit of bolus. BSGs were 425-260-155-116 mg/dL. * Fasting BSG was 101 mg/dL this AM. May be due to not receiving TPN yesterday but fastings had been trending down so will reduce basal today. * Plan to start D10W at 50 mL/hr continuously to provide fluids and some nutrition for patient who is refusing any further PN. This will provide 25 g of CHO every 6 hours. Added a carb ratio of 5 to start when D10W starts at noo n today. Patient will require 5 units of Novolog every 6 hours to cover the carbs in the D10W fluids. Any additional prandial or correctional coverage will need to be added onto the 5 units. * Basal may need increased tomorrow given addition of D10W fluids. 12/11: * Chandrika received 22 units of insulin yesterday, 10 basal + 12 bolus. BSGs were [phone] mg/dL. * Remains on TPN with 101 g of dextrose, SoluMedrol 80 mg IV TID, Azithromycin and Ceftriaxone. * Fasting BSG was 133 mg/dL this AM. Will continue with 10 units of basal per day. Believe yesterday's "fasting" was falsely elevated secondary to TPN being ran over 24 hours. Now that TPN infuses over 8 hours, believe this is a more true representation of fasting BSG. * Given no real improvement in BSGs following correctional administration yesterday, will tighten correction factor significantly today. Also, given 101 g of dextrose in the TPN, will elect to add 10 units of insulin to the bag today. 12/10: * Patient remains on SoluMedrol 80 mg IV TID, Azithromycin and Ceftriaxone. NPO but gets daily TPN which contains 101 g of Dextrose per day. This has been changed to infuse over 8 hours so there is a chance that dinner or HS BSGs may increase. Will trend. * BSGs yesterday were [phone] mg/dL. Overnight checks were 173 and 170 mg/dL. Patient received only 2 units of correctional insulin last evening. Has not had any basal insulin since admission. * BSG this AM was 201 mg/dL. Will continue with current goal range. Tightened correctional insulin this morning. No carb coverage but may add scheduled doses of Novolog tomorrow to cover dextrose in TPN should BSGs remain high. Could also consider adding insulin to TPN bag but hesitant to do so in the event of hypoglycemia. Will add 10 units of Lantus daily for now. 12/07: * 58-year-old female past medical history of protein calorie malnutrition on TPN, who presented to hospital with shortness of breath, found to have hypoxia and hypotension. * Patient had elevated BSGs yesterday. Contributing factors include stress from acute illness requiring pressors, hydrocortisone IV, and bicarb infusion ordered in dextrose containing fluids. Today BSGs have were acceptable at 136-143-151 mg/dL thus far. * Today the bicarb infusion will stop this evening (~1800). The steroids will begin to taper starting tomorrow. Per provider, TPN should resume today. * Given significant changes in care today, will conservatively manage BSGs with correctional insulin only through today and reassess in the morning. PLAN FOR INPATIENT GLYCEMIC CONTROL: * Basal insulin * Lantus 5 units SC daily * Bolus insulin * NovoLog per scale q6h * Goal Range: Low 110 mg/dL - High 140 mg/dL * Correction Factor: 20 mg/dL/unit * Carb ratio: 5 g/CHO/unit
[2023-12-15] MEDS: MULTI VIT W/MINERALS LIQUID 15 ML UDC PO SCH (13:55)
[2023-12-15] MEDS: THIAMINE HCL 100 MG in SYRINGE 9 ML IV SCH (13:55)
[2023-12-15] MEDS: DEXTROSE 10% 1,000 ML IV SCH (14:03)
[2023-12-15] MEDS ORDERED: STOP CLINOLIPID SCH (22:00)
[2023-12-16 08:57] LABS: BUN Creatinine Ratio 41.9 (10-20); Calcium 8.5 mg/dl (8.6-10.3); Creatinine Clr Calc Pharmacy 45.6 ml/min; Est GFR (African American) 85.1 ml/min; Est GFR (Non-African American) 73.4 ml/min; Magnesium 1.6 mg/dl (1.7-2.4); Phosphorus 3.4 mg/dl (2.5-4.9); Potassium 3.9 mmol/L (3.5-5.1)
[2023-12-16] MEDS: INSULIN ASPART PER UNIT CHARGE SC SCH (09:21)
[2023-12-16 09:27] LABS: Hematocrit (blood only) 30.3 % (37.0-47.0); Hemoglobin 9.3 g/dl (12.0-16.0); Mean Corpuscular Hgb Conc 30.7 g/dL (32.0-36.0); Mean Corpuscular Volume 94.4 fL (80.0-100.0); Mean Platelet Volume 13.5 fL (9.4-12.4); Platelet Count 172 K/uL (130-400); RDW Coefficient of Variation 18.3 % (11.5-14.5); RDW Standard Deviation 58.9 fL (36.4-46.3); Red Blood Count 3.21 M/uL (4.20-5.40); White Blood Count 11.54 K/ul (4.8-10.8)
--- NOTE | 2023-12-16 11:12 | Hospitalist Progress Note ---
Date of Service December 16, 2023 Assessment & Plan (1) Protein calorie malnutrition: (2) History of nephrectomy: (3) Pneumonia: (4) Septic shock: (5) Acidosis: (6) Leukocytosis: (7) Acute hypoxemic respiratory failure: Plan Patient is a 58 year old female with PMHx significant for chronic malabsorption syndrome post bypass, severe protein calorie malnutrition on TPN, iron deficiency anemia, copper deficiency, h/o right nephrectomy in 2022, bipolar disorder, anxiety, depression, tobacco use, migraine headache, nonspecific white matter changes, myelopathy who presented to the ER with multiple medical complaints including SOB, dry mouth and speech changes. Septic Shock Pneumonia Complicated UTI Acute hypoxic respiratory Failure Upon arrival to ER patient noted to be hypotensive and hypoxic in the 70's. In ER afebrile, P: 94, R: 30, BP: 87/56, 78% on RA CTA Chest: No pulmonary embolus. Groundglass opacities compatible with pneumonia and/or aspiration. CT Head, CTA Head & neck: unremarkable WBC: 36.7. Lactate: 1.6, procalcitonin: 4.5 Was on 10L nonrebreather with O2 sat low 90's UA was suggestive of infection, urine culture grew E coli and Klebsiella Blood Cx x2 sets NGTD Fungal Cx NGTD Drug screen negative Suspect sepsis secondary to pneumonia, UTI. In ER given meropenem, vancomycin, 2 L NSS Was admitted to the ICU, Was on Cefepime (transitioned to Rocephin) and azithromycin and Caspofungin. Caspofungin d/c Also on pressors for BP support as well as hydrocortisone. Pressors have since been weaned off, off steroids Was on hiFlo oxygen, wean as tolerated Pulmonology consulted, appreciate recs - transitioned to PO prednisone, currently on RA Continue to monitor Acute metabolic Encephalopathy Pt now confused Likely in setting of above. Delirium precautions. Frequent reorientation, avoid sedating medications Continue to monitor 12/10- urgent head CT ordered, no stroke but concern for demyelinating disease. MRI brain ordered wo contrast due to pt's ROBINSON/CKD, Neurology consulted, appreciate recs. 12/11- pt with noted stent on KUB, cannot be cleared for MRI. Discussed with Neurology Dr Chaney who states that the MRI is needed and should either discuss comfort measures/palliative care with family or have pt transferred for further neurological evaluation. Per nursing, a family member will be coming in later today and pt's case and status will be discussed then. 12/12 - pt is now awake and talkative but does not really have eye contact , prefers looking to the side. able to answer simple questions but not able to hold meaningful conversation. discussed w/ Dr. Chaney - and CT had obtained. Also updated and discussed with pt's brother at the bedside. 12/13 awake and able to answers simple questions - but still confused and not able to have meaningful conversation. Required zyprexa overnight, in restraints this AM. 12/14 awake alert, but still confused, sitting in chair, no restraints at this time Acute kidney injury Metabolic acidosis History of nephrectomy Cr: 2.2 on admission ABG pH of 7.21, HCO3 of 8, pCO2 of 19. AG of 9 at that time. Recent ROBINSON end of 10/2023 with Cr: 1.6 on 12/03 and 1.7 on 11/21. Prior baseline Cr: 1.0-1.2 IVF in ER. Did have CTA with contrast in ER Monitor renal function Nephrology consulted, appreciate recs -was on bicarb drip, since discontinued -Cr now at baseline Continue to monitor Bradycardia Episodes on 12/09 in setting of morphine d/c morphine, consider alternative nonnarcotic for pain management Continue to monitor on telemetry Stable/resolved at this time Acute on chronic Anemia Hgb below 7 on 12/08 Baseline of 7-8 required 2 physician consent as pt in acute delirium, family cannot be contacted Anemia panel Likely dilutional Continue to monitor H/H Protein calorie malnutrition Aspiration S/P bypass BMI: 14 On TPN 4 days a week at home Nutrition consult, speech consult Then was NPO due to aspiration TPN re-started on 12/07 Has been restarted 12/13 Pt pulled out her Saab which was used for TPN, gen. surg. consulted 12/14 pt has now diet, but poor oral intake 12/15 declining TPN/PPN Depression with anxiety: History Bipolar disorder On home buspirone, duloxetine, olanzapine H/O migraine Denies current [place] Tobacco use Smokes 1/2ppd Smoking cessation encouraged DVT Prophylaxis: Heparin SQ Admission and Anticipated Discharge Date Admission Date: December 06, 2023 Subjective Pt seen in follow up, AMS, hypoxia/ pna Currently laying in bed in NAD, on RA she is awake and able to answer simple questions but not able to hold meaningful conversation / confused RN present at the bedside Denies fever, chills, chest pain or shortness of breath Pulled her Saab - pt not aware she did that Today not feeling so well, likely as she is not eating/ drinking much and she is now declining TPN/PPN Review of Systems Review of Systems: All systems reviewed & are unremarkable except as noted in Subjective Physical Exam Physical Exam: General: thin, frail F in NAD, on RA HEENT: NC/AT CV: RRR Resp: no increased effort of breathing, no wheezing Abdomen: Soft Extremities: No edema in lower extremities bilaterally. Neuro: awake but only able to answer some questions appropriately, not able to have meaningful conversation, speech fluent, moves extremities Results & Data Results & Data Vital Signs (Past 12 Hours) Vital Signs Temp Pulse Resp BP Pulse Ox O2 Del Method 12/16/23 08:03 36.4 C L 63 20 110/61 95 Room Air 12/16/23 03:49 36.6 C 65 16 117/67 95 Room Air Laboratory Results 12/16/23 12/16/23 12/15/23 Range/Units 08:13 02:10 19:59 WBC 11.54 H (4.8-10.8) K/ul RBC 3.21 L (4.20-5.40) M/uL Hgb 9.3 L (12.0-16.0) g/dl Hct 30.3 L (37.0-47.0) % MCV 94.4 (80.0-100.0) fL MCH 29.0 (25.0-34.0) pg MCHC 30.7 L (32.0-36.0) g/dL RDW Std Deviation 58.9 H (36.4-46.3) fL RDW Coeff of Mike 18.3 H (11.5-14.5) % Plt Count 172 (130-400) K/uL MPV 13.5 H (9.4-12.4) fL Sodium 143 (136-145) mmol/L Potassium 3.9 (3.5-5.1) mmol/L Chloride 106 (98-107) mmol/L Carbon Dioxide 30 (21-32) mmol/L Anion Gap 7 (3-11) BUN 36 H (6-23) mg/dl Creatinine 0.86 (0.6-1.2) mg/dl Est Cr Clr Drug Dosing 45.6 ml/min Est GFR ( Amer) 85.1 ml/min Est GFR (Non-Af Amer) 73.4 ml/min BUN/Creatinine Ratio 41.9 H (10-20) Glucose 100 H (70-99(Fasting)) mg/dl POC Glucose 95 119 H (70-99) mg/dl Calcium 8.5 L (8.6-10.3) mg/dl Phosphorus 3.4 (2.5-4.9) mg/dl Magnesium 1.6 L (1.7-2.4) mg/dl 24 12/15/23 Range/Units 16:15 11:15 WBC (4.8-10.8) K/ul RBC (4.20-5.40) M/uL Hgb (12.0-16.0) g/dl Hct (37.0-47.0) % MCV (80.0-100.0) fL MCH (25.0-34.0) pg MCHC (32.0-36.0) g/dL RDW Std Deviation (36.4-46.3) fL RDW Coeff of Mike (11.5-14.5) % Plt Count (130-400) K/uL MPV (9.4-12.4) fL Sodium (136-145) mmol/L Potassium (3.5-5.1) mmol/L Chloride (98-107) mmol/L Carbon Dioxide (21-32) mmol/L Anion Gap (3-11) BUN (6-23) mg/dl Creatinine (0.6-1.2) mg/dl Est Cr Clr Drug Dosing ml/min Est GFR ( Amer) ml/min Est GFR (Non-Af Amer) ml/min BUN/Creatinine Ratio (10-20) Glucose (70-99(Fasting)) mg/dl POC Glucose 121 H 112 H (70-99) mg/dl Calcium (8.6-10.3) mg/dl Phosphorus (2.5-4.9) mg/dl Magnesium (1.7-2.4) mg/dl Medications Administered Current Inpatient Medications Dextrose (Dextrose 50% 50 Ml Syringe) 25 - 50 ml IV UD PRN; Protocol PRN Reason: Hypoglycemia Protocol Stop: 01/07/24 15:14 Glucagon (Glucagon For Inj 1 Mg Vial) 1 mg IM UD PRN; Protocol PRN Reason: Hypoglycemia Protocol Stop: 01/07/24 15:14 Glucose (Glucose 40% Gel 15 Gm Tube) 15 - 30 gm PO UD PRN; Protocol PRN Reason: Hypoglycemia Protocol Stop: 01/07/24 15:14 Glucose (Glucose 10 Tab/Tube) 4 - 8 tab PO UD PRN; Protocol PRN Reason: Hypoglycemia Protocol Stop: 01/07/24 15:14 Heparin Sodium (Beef Lung) (Heparin 10 Unit/Ml 5 Ml Flush) 5 ml FLUSH PRN PRN PRN Reason: Flush Stop: 01/05/24 19:36 Heparin Sodium (Porcine) (Heparin Sod 5,000 Unit/0.5 Ml Vial) 5,000 units SQ Q12 [facility] Stop: 01/05/24 20:59 Last Admin: 12/08/23 20:32 Dose: 5,000 units Pantoprazole Sodium 40 mg/ (Syringe) 10 mls @ 5 mls/min IV DAILY@1100 [facility] Stop: 01/07/24 10:59 Last Admin: 12/16/23 10:17 Dose: 5 mls/min Dextrose (D10w) 1,000 mls @ 0 mls/hr IV .Q0M PRN PRN Reason: protocol (see label comments) Stop: 01/07/24 13:10 Azithromycin 250 mg/ Dextrose 252.5 mls @ 125 mls/hr IV Q24H [facility] Stop: 12/18/23 08:59 Last Infusion: 12/16/23 09:39 Dose: Infused Acetaminophen 600 mg/ EMPTY (BAG) 60 mls @ 0 mls/hr IV Q8H PRN; Protocol PRN Reason: Pain/Fever Stop: 01/09/24 09:58 Last Infusion: 12/13/23 20:45 Dose: Infused Dextrose (D10w) 1,000 mls @ 50 mls/hr IV .Q20H [facility] Stop: 01/14/24 11:59 Last Admin: 12/16/23 07:31 Dose: 50 mls/hr Thiamine HCl 100 mg/ Syringe 10 mls @ 2 mls/min IV DAILY [facility] Stop: 01/14/24 11:59 Last Admin: 12/16/23 10:16 Dose: 2 mls/min Magnesium Sulfate/Dextrose (Magnesium Sulfate / D5w) 1 gm in 100 mls @ 50 mls/hr IV ONE ONE Stop: 12/16/23 13:06 Insulin Aspart (Insulin Aspart Per Unit Charge) 0 units SC ACHS [facility]; Protocol Stop: 01/15/24 07:29 Last Admin: 12/16/23 09:21 Dose: Not Given Insulin Glargine (Lantus Per Unit Charge) 5 units SC DAILY [facility]; Protocol Stop: 01/11/24 08:59 Last Admin: 12/16/23 09:29 Dose: 5 units Miscellaneous (Carbohydrates For Hypoglycemia ) 15 - 30 gm PO UD PRN PRN Reason: Hypoglycemia Treatment Stop: 01/07/24 15:14 Miscellaneous (Stop Clinolipid) 1 each N/A MoWeFr@2200 [facility] Stop: 01/14/24 21:59 Miscellaneous Information (Tpn/Ppn Consult Pharmacy) 1 each N/A UD PRN PRN Reason: Consult Stop: 01/05/24 17:15 Miscellaneous Information (Pharmacy Glycemic Mgmt Consult) 1 each N/A UD PRN; Protocol PRN Reason: Consult Stop: 01/06/24 16:36 Multivitamins/Minerals (Multi Vit W/Minerals Liquid 15 Ml Udc) 15 ml PO QAM [facility] Stop: 01/14/24 11:59 Last Admin: 12/16/23 07:27 Dose: 15 ml Olanzapine (Olanzapine 10 Mg/2.1 Ml Sdv) 2.5 mg IM Q4H PRN PRN Reason: Agitation Stop: 01/12/24 23:54 Last Admin: 12/14/23 09:06 Dose: 2.5 mg Prednisone (Prednisone 10 Mg Tablet) 10 mg PO DAILY [facility] Stop: 12/17/23 09:01 Last Admin: 12/16/23 07:26 Dose: 10 mg
[2023-12-16] MEDS: MAGNESIUM SULFATE / D5W 1 GM/100 ML BAG IV ONE (12:55)
[2023-12-16] MEDS: busPIRone 5 MG TAB PO SCH (20:18)
[2023-12-16] MEDS: PREGABALIN 25 MG CAP PO SCH (20:19)
[2023-12-16] MEDS: MELATONIN 3 MG TAB PO PRN (20:19)
[2023-12-17 06:25] LABS: Hematocrit (blood only) 27.8 % (37.0-47.0); Hemoglobin 8.6 g/dl (12.0-16.0); Mean Corpuscular Hgb Conc 30.9 g/dL (32.0-36.0); Mean Corpuscular Volume 93.6 fL (80.0-100.0); Mean Platelet Volume 13.7 fL (9.4-12.4); Platelet Count 178 K/uL (130-400); RDW Coefficient of Variation 17.5 % (11.5-14.5); RDW Standard Deviation 58.1 fL (36.4-46.3); Red Blood Count 2.97 M/uL (4.20-5.40); White Blood Count 10.11 K/ul (4.8-10.8)
[2023-12-17 06:32] LABS: Calcium 7.6 mg/dl (8.6-10.3); Creatinine Clr Calc Pharmacy 49.5 ml/min; Est GFR (African American) 92.9 ml/min; Est GFR (Non-African American) 80.1 ml/min; Magnesium 1.6 mg/dl (1.7-2.4); Phosphorus 3.6 mg/dl (2.5-4.9); Potassium 3.8 mmol/L (3.5-5.1)
--- NOTE | 2023-12-17 07:44 | Hospitalist Progress Note ---
Date of Service December 17, 2023 Assessment & Plan (1) Protein calorie malnutrition: (2) History of nephrectomy: (3) Pneumonia: (4) Septic shock: (5) Acidosis: (6) Leukocytosis: (7) Acute hypoxemic respiratory failure: Plan Patient is a 58 year old female with PMHx significant for chronic malabsorption syndrome post bypass, severe protein calorie malnutrition on TPN, iron deficiency anemia, copper deficiency, h/o right nephrectomy in 2022, bipolar disorder, anxiety, depression, tobacco use, migraine headache, nonspecific white matter changes, myelopathy who presented to the ER with multiple medical complaints including SOB, dry mouth and speech changes. Septic Shock Pneumonia Complicated UTI Acute hypoxic respiratory Failure Upon arrival to ER patient noted to be hypotensive and hypoxic in the 70's. In ER afebrile, P: 94, R: 30, BP: 87/56, 78% on RA CTA Chest: No pulmonary embolus. Groundglass opacities compatible with pneumonia and/or aspiration. CT Head, CTA Head & neck: unremarkable WBC: 36.7. Lactate: 1.6, procalcitonin: 4.5 Was on 10L nonrebreather with O2 sat low 90's UA was suggestive of infection, urine culture grew E coli and Klebsiella Blood Cx x2 sets NGTD Fungal Cx NGTD Drug screen negative Suspect sepsis secondary to pneumonia, UTI. In ER given meropenem, vancomycin, 2 L NSS Was admitted to the ICU, Was on Cefepime (transitioned to Rocephin) and azithromycin and Caspofungin. Caspofungin d/c Also on pressors for BP support as well as hydrocortisone. Pressors have since been weaned off, off steroids Was on hiFlo oxygen, wean as tolerated Pulmonology consulted, appreciate recs - transitioned to PO prednisone, currently on RA Continue to monitor Acute metabolic Encephalopathy Pt now confused Likely in setting of above. Delirium precautions. Frequent reorientation, avoid sedating medications Continue to monitor 12/10- urgent head CT ordered, no stroke but concern for demyelinating disease. MRI brain ordered wo contrast due to pt's ROBINSON/CKD, Neurology consulted, appreciate recs. 12/11- pt with noted stent on KUB, cannot be cleared for MRI. Discussed with Neurology Dr Chaney who states that the MRI is needed and should either discuss comfort measures/palliative care with family or have pt transferred for further neurological evaluation. Per nursing, a family member will be coming in later today and pt's case and status will be discussed then. 12/12 - pt is now awake and talkative but does not really have eye contact , prefers looking to the side. able to answer simple questions but not able to hold meaningful conversation. discussed w/ Dr. Chaney - and CT had obtained. Also updated and discussed with pt's brother at the bedside. 12/13 awake and able to answers simple questions - but still confused and not able to have meaningful conversation. Required zyprexa overnight, in restraints this AM. 12/14 awake alert, but still confused, sitting in chair, no restraints at this time Acute kidney injury Metabolic acidosis History of nephrectomy Cr: 2.2 on admission ABG pH of 7.21, HCO3 of 8, pCO2 of 19. AG of 9 at that time. Recent ROBINSON end of 10/2023 with Cr: 1.6 on 12/03 and 1.7 on 11/21. Prior baseline Cr: 1.0-1.2 IVF in ER. Did have CTA with contrast in ER Monitor renal function Nephrology consulted, appreciate recs -was on bicarb drip, since discontinued -Cr now at baseline Continue to monitor Bradycardia Episodes on 12/09 in setting of morphine d/c morphine, consider alternative nonnarcotic for pain management Continue to monitor on telemetry Stable/resolved at this time Acute on chronic Anemia Hgb below 7 on 12/08 Baseline of 7-8 required 2 physician consent as pt in acute delirium, family cannot be contacted Anemia panel Likely dilutional Continue to monitor H/H Protein calorie malnutrition Aspiration S/P bypass BMI: 14 On TPN 4 days a week at home Nutrition consult, speech consult Then was NPO due to aspiration TPN re-started on 12/07 Has been restarted 12/13 Pt pulled out her Saab which was used for TPN, gen. surg. consulted 12/14 pt has now diet, but poor oral intake 12/15 declining TPN/PPN 12/16 she is trying to improve her PO intake Depression with anxiety: History Bipolar disorder On home buspirone, duloxetine, olanzapine H/O migraine Denies current SMALLWOOD Tobacco use Smokes 1/2ppd Smoking cessation encouraged DVT Prophylaxis: Heparin SQ Admission and Anticipated Discharge Date Admission Date: December 06, 2023 Subjective Pt seen in follow up, AMS, hypoxia/ pna Currently laying in bed in NAD, on RA she is awake and able to answer simple questions but not able to hold meaningful conversation / confused Denies fever, chills, chest pain or shortness of breath Pulled her Saab - pt not aware she did that She is not eating/ drinking enough and she is now declining TPN/PPN She is trying to improve her PO intake - discussed this with advertising vice president of Systems Review of Systems: All systems reviewed & are unremarkable except as noted in Subjective Physical Exam Physical Exam: General: thin, frail F in NAD, on RA HEENT: NC/AT CV: RRR Resp: no increased effort of breathing, no wheezing Abdomen: Soft Extremities: No edema in lower extremities bilaterally. Neuro: awake but only able to answer some questions appropriately, not able to have meaningful conversation, speech fluent, moves extremities Results & Data Results & Data Vital Signs (Past 12 Hours) Vital Signs Temp Pulse Pulse Resp BP Pulse Ox O2 Del Method 12/17/23 07:33 Room Air 12/17/23 03:05 36.4 C L 60 18 145/70 H 95 Room Air 12/16/23 22:05 Room Air 12/16/23 21:50 36.6 C 59 L 16 117/68 98 Room Air 12/16/23 21:48 59 L 12/16/23 20:00 Room Air Laboratory Results 12/17/23 12/16/23 12/16/23 Range/Units 05:47 20:11 16:36 WBC 10.11 (4.8-10.8) K/ul RBC 2.97 L (4.20-5.40) M/uL Hgb 8.6 L (12.0-16.0) g/dl Hct 27.8 L (37.0-47.0) % MCV 93.6 (80.0-100.0) fL MCH 29.0 (25.0-34.0) pg MCHC 30.9 L (32.0-36.0) g/dL RDW Std Deviation 58.1 H (36.4-46.3) fL RDW Coeff of Mike 17.5 H (11.5-14.5) % Plt Count 178 (130-400) K/uL MPV 13.7 H (9.4-12.4) fL Sodium 142 (136-145) mmol/L Potassium 3.8 (3.5-5.1) mmol/L Chloride 109 H (98-107) mmol/L Carbon Dioxide 29 (21-32) mmol/L Anion Gap 4 (3-11) BUN 24 H (6-23) mg/dl Creatinine 0.80 (0.6-1.2) mg/dl Est Cr Clr Drug Dosing 49.5 ml/min Est GFR ( Amer) 92.9 ml/min Est GFR (Non-Af Amer) 80.1 ml/min BUN/Creatinine Ratio 30.0 H (10-20) Glucose 100 H (70-99(Fasting)) mg/dl POC Glucose 166 H 99 (70-99) mg/dl Calcium 7.6 L (8.6-10.3) mg/dl Phosphorus 3.6 (2.5-4.9) mg/dl Magnesium 1.6 L (1.7-2.4) mg/dl 12/16/23 12/16/23 Range/Units 11:13 08:13 WBC 11.54 H (4.8-10.8) K/ul RBC 3.21 L (4.20-5.40) M/uL Hgb 9.3 L (12.0-16.0) g/dl Hct 30.3 L (37.0-47.0) % MCV 94.4 (80.0-100.0) fL MCH 29.0 (25.0-34.0) pg MCHC 30.7 L (32.0-36.0) g/dL RDW Std Deviation 58.9 H (36.4-46.3) fL RDW Coeff of Mike 18.3 H (11.5-14.5) % Plt Count 172 (130-400) K/uL MPV 13.5 H (9.4-12.4) fL Sodium 143 (136-145) mmol/L Potassium 3.9 (3.5-5.1) mmol/L Chloride 106 (98-107) mmol/L Carbon Dioxide 30 (21-32) mmol/L Anion Gap 7 (3-11) BUN 36 H (6-23) mg/dl Creatinine 0.86 (0.6-1.2) mg/dl Est Cr Clr Drug Dosing 45.6 ml/min Est GFR ( Amer) 85.1 ml/min Est GFR (Non-Af Amer) 73.4 ml/min BUN/Creatinine Ratio 41.9 H (10-20) Glucose 100 H (70-99(Fasting)) mg/dl POC Glucose 118 H (70-99) mg/dl Calcium 8.5 L (8.6-10.3) mg/dl Phosphorus 3.4 (2.5-4.9) mg/dl Magnesium 1.6 L (1.7-2.4) mg/dl Medications Administered Current Inpatient Medications Buspirone HCl (Buspirone 5 Mg Tab) 5 mg PO BID [facility] Stop: 01/15/24 20:59 Last Admin: 12/16/23 20:18 Dose: 5 mg Dextrose (Dextrose 50% 50 Ml Syringe) 25 - 50 ml IV UD PRN; Protocol PRN Reason: Hypoglycemia Protocol Stop: 01/07/24 15:14 Glucagon (Glucagon For Inj 1 Mg Vial) 1 mg IM UD PRN; Protocol PRN Reason: Hypoglycemia Protocol Stop: 01/07/24 15:14 Glucose (Glucose 40% Gel 15 Gm Tube) 15 - 30 gm PO UD PRN; Protocol PRN Reason: Hypoglycemia Protocol Stop: 01/07/24 15:14 Glucose (Glucose 10 Tab/Tube) 4 - 8 tab PO UD PRN; Protocol PRN Reason: Hypoglycemia Protocol Stop: 01/07/24 15:14 Heparin Sodium (Beef Lung) (Heparin 10 Unit/Ml 5 Ml Flush) 5 ml FLUSH PRN PRN PRN Reason: Flush Stop: 01/05/24 19:36 Heparin Sodium (Porcine) (Heparin Sod 5,000 Unit/0.5 Ml Vial) 5,000 units SQ Q12 [facility] Stop: 01/05/24 20:59 Last Admin: 12/08/23 20:32 Dose: 5,000 units Dextrose (D10w) 1,000 mls @ 0 mls/hr IV .Q0M PRN PRN Reason: protocol (see label comments) Stop: 01/07/24 13:10 Azithromycin 250 mg/ Dextrose 252.5 mls @ 125 mls/hr IV Q24H [facility] Stop: 12/18/23 08:59 Last Infusion: 12/16/23 09:39 Dose: Infused Acetaminophen 600 mg/ EMPTY (BAG) 60 mls @ 0 mls/hr IV Q8H PRN; Protocol PRN Reason: Pain/Fever Stop: 01/09/24 09:58 Last Infusion: 12/13/23 20:45 Dose: Infused Dextrose (D10w) 1,000 mls @ 50 mls/hr IV .Q20H [facility] Stop: 01/14/24 11:59 Last Admin: 12/17/23 03:39 Dose: 50 mls/hr Thiamine HCl 100 mg/ Syringe 10 mls @ 2 mls/min IV DAILY [facility] Stop: 01/14/24 11:59 Last Admin: 12/16/23 10:16 Dose: 2 mls/min Magnesium Sulfate/Dextrose (Magnesium Sulfate / D5w) 1 gm in 100 mls @ 50 mls/hr IV ONE ONE Stop: 12/17/23 09:42 Insulin Aspart (Insulin Aspart Per Unit Charge) 0 units SC ACHS [facility]; Protocol Stop: 01/15/24 07:29 Last Admin: 12/16/23 20:17 Dose: 2 units Melatonin (Melatonin 3 Mg Tab) 3 mg PO HS PRN PRN Reason: Sleep Stop: 01/15/24 19:25 Last Admin: 12/16/23 20:19 Dose: 3 mg Miscellaneous (Carbohydrates For Hypoglycemia ) 15 - 30 gm PO UD PRN PRN Reason: Hypoglycemia Treatment Stop: 01/07/24 15:14 Miscellaneous (Stop Clinolipid) 1 each N/A MoWeFr@2200 [facility] Stop: 01/14/24 21:59 Miscellaneous Information (Tpn/Ppn Consult Pharmacy) 1 each N/A UD PRN PRN Reason: Consult Stop: 01/05/24 17:15 Miscellaneous Information (Pharmacy Glycemic Mgmt Consult) 1 each N/A UD PRN; Protocol PRN Reason: Consult Stop: 01/06/24 16:36 Multivitamins/Minerals (Multi Vit W/Minerals Liquid 15 Ml Udc) 15 ml PO QAM [facility] Stop: 01/14/24 11:59 Last Admin: 12/16/23 07:27 Dose: 15 ml Olanzapine (Olanzapine 10 Mg/2.1 Ml Sdv) 2.5 mg IM Q4H PRN PRN Reason: Agitation Stop: 01/12/24 23:54 Last Admin: 12/14/23 09:06 Dose: 2.5 mg Pantoprazole Sodium (Pantoprazole 40 Mg Tab) 40 mg PO QAM [facility] Stop: 01/16/24 08:59 Prednisone (Prednisone 10 Mg Tablet) 10 mg PO DAILY [facility] Stop: 12/17/23 09:01 Last Admin: 12/16/23 07:26 Dose: 10 mg Pregabalin (Pregabalin 25 Mg Cap) 25 mg PO BID [facility] Stop: 01/15/24 20:59 Last Admin: 12/16/23 20:19 Dose: 25 mg
[2023-12-17] MEDS: MAGNESIUM SULFATE / D5W 1 GM/100 ML BAG IV ONE (08:17)
[2023-12-17] MEDS: PANTOprazole 40 MG TAB PO SCH (08:17)
--- NOTE | 2023-12-17 15:11 | Pharmacy Report ---
Pharmacy Glycemic Short Note 2 - Date of Service December 17, 2023 - Glycemic Short BSG Results (Last 24 hours): 12/16/23 12/16/23 12/17/23 16:36 20:11 05:47 Glucose 100 H POC Glucose 99 166 H 12/17/23 12/17/23 08:16 12:09 Glucose POC Glucose 103 H 139 H OUTPATIENT ANTIDIABETIC REGIMEN: * Patient does not appear to be on any antidiabetic medications at home. * HbA1c: 6% (12/08/23) ASSESSMENT: 12/16: * Patient received 5 units of basal and 4 units of bolus insulins yesterday. * BSGs yesterday were 604-347-67-166 mg/dl. * Since BSGs were at goal even with D10 fluid running, basal insulin for today was discontinued. Today was the last dose of Prednisone 10 mg. * Novolog parameters continued the same. Food intake minimal. 12/14: * Patient removed central line yesterday so received no TPN. Only received 10 units of basal + 1 unit of bolus. BSGs were [phone] mg/dL. * Fasting BSG was 101 mg/dL this AM. May be due to not receiving TPN yesterday but fastings had been trending down so will reduce basal today. * Plan to start D10W at 50 mL/hr continuously to provide fluids and some nutrition for patient who is refusing any further PN. This will provide 25 g of CHO every 6 hours. Added a carb ratio of 5 to start when D10W starts at noon today. Patient will require 5 units of Novolog every 6 hours to cover the carbs in the D10W fluids. Any additional prandial or correctional coverage will need to be added onto the 5 units. * Basal may need increased tomorrow given addition of D10W fluids. 12/11: * Chandrika received 22 units of insulin yesterday, 10 basal + 12 bolus. BSGs were [phone] mg/dL. * Remains on TPN with 101 g of dextrose, SoluMedrol 80 mg IV TID, Azithromycin and Ceftriaxone. * Fasting BSG was 133 mg/dL this AM. Will continue with 10 units of basal per day. Believe yesterday's "fasting" was falsely elevated secondary to TPN being ran over 24 hours. Now that TPN infuses over 8 hours, believe this is a more true representation of fasting BSG. * Given no real improvement in BSGs following correctional administration yesterday, will tighten correction factor significantly today. Also, given 101 g of dextrose in the TPN, will elect to add 10 units of insulin to the bag today. 12/10: * Patient remains on SoluMedrol 80 mg IV TID, Azithromycin and Ceftriaxone. NPO but gets daily TPN which contains 101 g of Dextrose per day. This has been changed to infuse over 8 hours so there is a chance that dinner or HS BSGs may increase. Will trend. * BSGs yesterday were [phone] mg/dL. Overnight checks were 173 and 170 mg/dL. Patient received only 2 units of correctional insulin last evening. Has not had any basal insulin since admission. * BSG this AM was 201 mg/dL. Will continue with current goal range. Tightened correctional insulin this morning. No carb coverage but may add scheduled doses of Novolog tomorrow to cover dextrose in TPN should BSGs remain high. Could also consider adding insulin to TPN bag but hesitant to do so in the event of hypoglycemia. Will add 10 units of Lantus daily for now. 12/07: * 58-year-old female past medical history of protein calorie malnutrition on TPN, who presented to hospital with shortness of breath, found to have hypoxia and hypotension. * Patient had elevated BSGs yesterday. Contributing factors include stress from acute illness requiring pressors, hydrocortisone IV, and bicarb infusion ordered in dextrose containing fluids. Today BSGs have were acceptable at 136-143-151 mg/dL thus far. * Today the bicarb infusion will stop this evening (~1800). The steroids will begin to taper starting tomorrow. Per provider, TPN should resume today. * Given significant changes in care today, will conservatively manage BSGs with correctional insulin only through today and reassess in the morning. PLAN FOR INPATIENT GLYCEMIC CONTROL: * Basal insulin * None * Bolus insulin * NovoLog per scale q6h * Goal Range: Low 110 mg/dL - High 140 mg/dL * Correction Factor: 20 mg/dL/unit * Carb ratio: 12 g/CHO/unit
--- NOTE | 2023-12-18 08:56 | Hospitalist Progress Note ---
Date of Service December 18, 2023 Assessment & Plan (1) Protein calorie malnutrition: (2) History of nephrectomy: (3) Pneumonia: (4) Septic shock: (5) Acidosis: (6) Leukocytosis: (7) Acute hypoxemic respiratory failure: Plan Patient is a 58 year old female with PMHx significant for chronic malabsorption syndrome post bypass, severe protein calorie malnutrition on TPN, iron deficiency anemia, copper deficiency, h/o right nephrectomy in 2022, bipolar disorder, anxiety, depression, tobacco use, migraine headache, nonspecific white matter changes, myelopathy who presented to the ER with multiple medical complaints including SOB, dry mouth and speech changes. Septic Shock Pneumonia Complicated UTI Acute hypoxic respiratory Failure Upon arrival to ER patient noted to be hypotensive and hypoxic in the 70's. In ER afebrile, P: 94, R: 30, BP: 87/56, 78% on RA CTA Chest: No pulmonary embolus. Groundglass opacities compatible with pneumonia and/or aspiration. CT Head, CTA Head & neck: unremarkable WBC: 36.7. Lactate: 1.6, procalcitonin: 4.5 Was on 10L nonrebreather with O2 sat low 90's UA was suggestive of infection, urine culture grew E coli and Klebsiella Blood Cx x2 sets NGTD Fungal Cx NGTD Drug screen negative Suspect sepsis secondary to pneumonia, UTI. In ER given meropenem, vancomycin, 2 L NSS Was admitted to the ICU, Was on Cefepime (transitioned to Rocephin) and azithromycin and Caspofungin. Caspofungin d/c Also on pressors for BP support as well as hydrocortisone. Pressors have since been weaned off, off steroids Was on hiFlo oxygen, wean as tolerated Pulmonology consulted, appreciate recs - transitioned to PO prednisone, now course finished, currently on RA Continue to monitor Acute metabolic Encephalopathy Pt now confused Likely in setting of above. Delirium precautions. Frequent reorientation, avoid sedating medications Continue to monitor 12/10- urgent head CT ordered, no stroke but concern for demyelinating disease. MRI brain ordered wo contrast due to pt's ROBINSON/CKD, Neurology consulted, appreciate recs. 12/11- pt with noted stent on KUB, cannot be cleared for MRI. Discussed with Neurology Dr Chaney who states that the MRI is needed and should either discuss comfort measures/palliative care with family or have pt transferred for further neurological evaluation. Per nursing, a family member will be coming in later today and pt's case and status will be discussed then. 12/12 - pt is now awake and talkative but does not really have eye contact , prefers looking to the side. able to answer simple questions but not able to hold meaningful conversation. discussed w/ Dr. Chaney - and CT had obtained. Also updated and discussed with pt's brother at the bedside. 12/13 awake and able to answers simple questions - but still confused and not able to have meaningful conversation. Required zyprexa overnight, in restraints this AM. 12/14 awake alert, but still confused, sitting in chair, no restraints at this time 12/16 awake alert - mental status overall seems much improved Acute kidney injury Metabolic acidosis History of nephrectomy Cr: 2.2 on admission ABG pH of 7.21, HCO3 of 8, pCO2 of 19. AG of 9 at that time. Recent ROBINSON end of 10/2023 with Cr: 1.6 on 12/03 and 1.7 on 11/21. Prior baseline Cr: 1.0-1.2 IVF in ER. Did have CTA with contrast in ER Monitor renal function Nephrology consulted, appreciate recs -was on bicarb drip, since discontinued -Cr now at baseline Continue to monitor Bradycardia Episodes on 12/09 in setting of morphine d/c morphine, consider alternative nonnarcotic for pain management Continue to monitor on telemetry Stable/resolved at this time Acute on chronic Anemia Hgb below 7 on 12/08 Baseline of 7-8 required 2 physician consent as pt in acute delirium, family cannot be contacted Anemia panel Likely dilutional Continue to monitor H/H Protein calorie malnutrition Aspiration S/P bypass BMI: 14 On TPN 4 days a week at home Nutrition consult, speech consult Then was NPO due to aspiration TPN re-started on 12/07 Has been restarted 12/13 Pt pulled out her Saab which was used for TPN, gen. surg. consulted 12/14 pt has now diet, but poor oral intake 12/15 declining TPN/PPN 12/16 she is trying to improve her PO intake 12/17 today she is ok with PPN Depression with anxiety: History Bipolar disorder On home buspirone, duloxetine, olanzapine H/O migraine Denies current SMALLWOOD Tobacco use Smokes 1/2ppd Smoking cessation encouraged DVT Prophylaxis: Heparin SQ Admission and Anticipated Discharge Date Admission Date: December 06, 2023 Subjective Pt seen in follow up, AMS, hypoxia/ pna Currently laying in bed in NAD, on RA she is awake and able to answer simple questions but not able to hold meaningful conversation / confused Denies fever, chills, chest pain or shortness of breath Pulled her Saab - pt not aware she did that She is not eating/ drinking enough and she is now declining TPN. Today she is ok with PPN. She is trying to improve her PO intake, discussed w/ pharmacy- can take lactase pills w/ dairy products Review of Systems Review of Systems: All systems reviewed & are unremarkable except as noted in Subjective Physical Exam Physical Exam: General: thin, frail F in NAD, on RA HEENT: NC/AT CV: RRR Resp: no increased effort of breathing, no wheezing Abdomen: Soft Extremities: No edema in lower extremities bilaterally. Neuro: awake but only able to answer some questions appropriately, not able to have meaningful conversation, speech fluent, moves extremities Results & Data Results & Data Vital Signs (Past 12 Hours) Vital Signs Temp Pulse Pulse Resp BP BP Pulse Ox 12/18/23 07:58 37.1 C 58 L 20 122/73 97 12/18/23 07:25 52 L 12/18/23 02:45 36.0 C L 55 L 16 117/61 93 12/17/23 23:00 36.5 C 50 L 14 112/61 96 12/17/23 21:54 57 L O2 Del Method 12/18/23 07:58 Room Air 12/18/23 07:25 12/18/23 02:45 Room Air 12/17/23 23:00 Room Air 12/17/23 21:54 Medications Administered Current Inpatient Medications Buspirone HCl (Buspirone 5 Mg Tab) 5 mg PO BID [facility] Stop: 01/15/24 20:59 Last Admin: 12/18/23 08:05 Dose: 5 mg Dextrose (Dextrose 50% 50 Ml Syringe) 25 - 50 ml IV UD PRN; Protocol PRN Reason: Hypoglycemia Protocol Stop: 01/07/24 15:14 Glucagon (Glucagon For Inj 1 Mg Vial) 1 mg IM UD PRN; Protocol PRN Reason: Hypoglycemia Protocol Stop: 01/07/24 15:14 Glucose (Glucose 40% Gel 15 Gm Tube) 15 - 30 gm PO UD PRN; Protocol PRN Reason: Hypoglycemia Protocol Stop: 01/07/24 15:14 Glucose (Glucose 10 Tab/Tube) 4 - 8 tab PO UD PRN; Protocol PRN Reason: Hypoglycemia Protocol Stop: 01/07/24 15:14 Heparin Sodium (Beef Lung) (Heparin 10 Unit/Ml 5 Ml Flush) 5 ml FLUSH PRN PRN PRN Reason: Flush Stop: 01/05/24 19:36 Heparin Sodium (Porcine) (Heparin Sod 5,000 Unit/0.5 Ml Vial) 5,000 units SQ Q12 [facility] Stop: 01/05/24 20:59 Last Admin: 12/08/23 20:32 Dose: 5,000 units Dextrose (D10w) 1,000 mls @ 0 mls/hr IV .Q0M PRN PRN Reason: protocol (see label comments) Stop: 01/07/24 13:10 Azithromycin 250 mg/ Dextrose 252.5 mls @ 125 mls/hr IV Q24H [facility] Stop: 12/18/23 08:59 Last Infusion: 12/17/23 12:17 Dose: Infused Acetaminophen 600 mg/ EMPTY (BAG) 60 mls @ 0 mls/hr IV Q8H PRN; Protocol PRN Reason: Pain/Fever Stop: 01/09/24 09:58 Last Infusion: 12/13/23 20:45 Dose: Infused Dextrose (D10w) 1,000 mls @ 50 mls/hr IV .Q20H [facility] Stop: 01/14/24 11:59 Last Admin: 12/17/23 23:46 Dose: 50 mls/hr Thiamine HCl 100 mg/ Syringe 10 mls @ 2 mls/min IV DAILY [facility] Stop: 01/14/24 11:59 Last Admin: 12/18/23 08:06 Dose: 2 mls/min Insulin Aspart (Insulin Aspart Per Unit Charge) 0 units SC ACHS [facility]; Protocol Stop: 01/15/24 07:29 Last Admin: 12/17/23 20:35 Dose: Not Given Melatonin (Melatonin 3 Mg Tab) 3 mg PO HS PRN PRN Reason: Sleep Stop: 01/15/24 19:25 Last Admin: 12/17/23 20:39 Dose: 3 mg Miscellaneous (Carbohydrates For Hypoglycemia ) 15 - 30 gm PO UD PRN PRN Reason: Hypoglycemia Treatment Stop: 01/07/24 15:14 Miscellaneous (Stop Clinolipid) 1 each N/A MoWeFr@2200 [facility] Stop: 01/14/24 21:59 Miscellaneous Information (Tpn/Ppn Consult Pharmacy) 1 each N/A UD PRN PRN Reason: Consult Stop: 01/05/24 17:15 Miscellaneous Information (Pharmacy Glycemic Mgmt Consult) 1 each N/A UD PRN; Protocol PRN Reason: Consult Stop: 01/06/24 16:36 Multivitamins/Minerals (Multi Vit W/Minerals Liquid 15 Ml Udc) 15 ml PO QAM [facility] Stop: 01/14/24 11:59 Last Admin: 12/18/23 08:05 Dose: 15 ml Olanzapine (Olanzapine 10 Mg/2.1 Ml Sdv) 2.5 mg IM Q4H PRN PRN Reason: Agitation Stop: 01/12/24 23:54 Last Admin: 12/14/23 09:06 Dose: 2.5 mg Pantoprazole Sodium (Pantoprazole 40 Mg Tab) 40 mg PO QAM [facility] Stop: 01/16/24 08:59 Last Admin: 12/18/23 08:05 Dose: 40 mg Pregabalin (Pregabalin 25 Mg Cap) 25 mg PO BID [facility] Stop: 01/15/24 20:59 Last Admin: 12/18/23 08:05 Dose: 25 mg
[2023-12-18] MEDS ORDERED: LACTASE 3000 UNIT TAB PO PRN (09:59)
[2023-12-18 10:50] LABS: BUN Creatinine Ratio 16.5 (10-20); Calcium 7.9 mg/dl (8.6-10.3); Creatinine Clr Calc Pharmacy 39.2 ml/min; Est GFR (African American) 68.4 ml/min; Magnesium 1.6 mg/dl (1.7-2.4); Phosphorus 3.3 mg/dl (2.5-4.9); Potassium 3.8 mmol/L (3.5-5.1)
[2023-12-18] MEDS: MAGNESIUM SULFATE / D5W 1 GM/100 ML BAG IV ONE (11:09)
[2023-12-18] MEDS: LACTASE 3000 UNIT TAB PO SCH (12:16)
--- NOTE | 2023-12-18 13:28 | Pharmacy Report ---
Pharmacy Glycemic Short Note 2 - Date of Service December 18, 2023 - Glycemic Short BSG Results (Last 24 hours): 12/17/23 12/17/23 12/18/23 17:07 20:05 08:04 Glucose POC Glucose 107 H 124 H 170 H 12/18/23 12/18/23 10:12 11:57 Glucose 72 POC Glucose 77 OUTPATIENT ANTIDIABETIC REGIMEN: * Patient does not appear to be on any antidiabetic medications at home. * HbA1c: 6% (12/08/23) ASSESSMENT: 12/17: * Chandrika received 1 unit of bolus insulin yesterday * Fasting BSG this AM slightly elevated, but acceptable. She is agreeable to PPN today, so will cover the dextrose in PPN with Lantus. D10 infusion to be discontinued with re-initiation of PPN. * Loosened Novolog significantly with completion of steroid taper, minimal oral intake per documentation 12/16: * Patient received 5 units of basal and 4 units of bolus insulins yesterday. * BSGs yesterday were 364-243-55-166 mg/dl. * Since BSGs were at goal even with D10 fluid running, basal insulin for today was discontinued. Today was the last dose of Prednisone 10 mg. * Novolog parameters continued the same. Food intake minimal. 12/14: * Patient removed central line yesterday so received no TPN. Only received 10 units of basal + 1 unit of bolus. BSGs were [phone] mg/dL. * Fasting BSG was 101 mg/dL this AM. May be due to not receiving TPN yesterday but fastings had been trending down so will reduce basal today. * Plan to start D10W at 50 mL/hr continuously to provide fluids and some nutrition for patient who is refusing any further PN. This will provide 25 g of CHO every 6 hours. Added a carb ratio of 5 to start when D10W starts at noon today. Patient will require 5 units of Novolog every 6 hours to cover the carbs in the D10W fluids. Any additional prandial or correctional coverage will need to be added onto the 5 units. * Basal may need increased tomorrow given addition of D10W fluids. 12/11: * Chandrika received 22 units of insulin yesterday, 10 basal + 12 bolus. BSGs were [phone] mg/dL. * Remains on TPN with 101 g of dextrose, SoluMedrol 80 mg IV TID, Azithromycin and Ceftriaxone. * Fasting BSG was 133 mg/dL this AM. Will continue with 10 units of basal per day. Believe yesterday's "fasting" was falsely elevated secondary to TPN being ran over 24 hours. Now that TPN infuses over 8 hours, believe this is a more true representation of fasting BSG. * Given no real improvement in BSGs following correctional administration yesterday, will tighten correction factor significantly today. Also, given 101 g of dextrose in the TPN, will elect to add 10 units of insulin to the bag today. 12/10: * Patient remains on SoluMedrol 80 mg IV TID, Azithromycin and Ceftriaxone. NPO but gets daily TPN which contains 101 g of Dextrose per day. This has been changed to infuse over 8 hours so there is a chance that dinner or HS BSGs may increase. Will trend. * BSGs yesterday were [phone] mg/dL. Overnight checks were 173 and 170 mg/dL. Patient received only 2 units of correctional insulin last evening. Has not had any basal insulin since admission. * BSG this AM was 201 mg/dL. Will continue with current goal range. Tightened correctional insulin this morning. No carb coverage but may add scheduled doses of Novolog tomorrow to cover dextrose in TPN should BSGs remain high. Could also consider adding insulin to TPN bag but hesitant to do so in the event of hypoglycemia. Will add 10 units of Lantus daily for now. 12/07: * 58-year-old female past medical history of protein calorie malnutrition on TPN, who presented to hospital with shortness of breath, found to have hypoxia and hypotension. * Patient had elevated BSGs yesterday. Contributing factors include stress from acute illness requiring pressors, hydrocortisone IV, and bicarb infusion ordered in dextrose containing fluids. Today BSGs have were acceptable at 136-143-151 mg/dL thus far. * Today the bicarb infusion will stop this evening (~1800). The steroids will begin to taper starting tomorrow. Per provider, TPN should resume today. * Given significant changes in care today, will conservatively manage BSGs with correctional insulin only through today and reassess in the morning. PLAN FOR INPATIENT GLYCEMIC CONTROL: * Basal insulin * Lantus 6 units SQ daily @1600 (to cover dextrose in PPN) * Bolus insulin * NovoLog per scale ACHS * Goal Range: Low 110 mg/dL - High 140 mg/dL * Correction Factor: 45 mg/dL/unit * Carb ratio: 15 g/CHO/unit
--- NOTE | 2023-12-18 15:15 | Pharmacy Report ---
Pharmacy PN Follow-up Note - Date of Service December 18, 2023 - Subjective Patient is currently on day #[] of [PPN][TPN] for [Indication]. - Objective Height & Weight (Last Documented) Height 5 ft 3 in Weight 42.8 kg Diet Order(s) 12/18/23 Lunch Diet Intake & Ouput (24hrs) 12/17/23 12/18/23 12/19/23 06:59 06:59 06:59 Intake Total 2345.833 / 2345.833 1652.5 / 1652.5 340 / 340 Output Total 1800 / 1800 2251 / 2251 900 / 900 Balance 545.833 / 545.833 -598.5 / -598.5 -560 / -560 Selected Laboratory Results 12/18/23 10:12 Sodium 143 Potassium 3.8 Chloride 109 H Carbon Dioxide 30 Anion Gap 4 BUN 17 Creatinine 1.03 Est GFR ( Amer) 68.4 Est GFR (Non-Af Amer) 59.0 BUN/Creatinine Ratio 16.5 Glucose 72 Calcium 7.9 L Phosphorus 3.3 Magnesium 1.6 L - Assessment & Plan Assessment: 12/17 * Parenteral nutrition on hold since last Monday. Chandrika lost central access last week and then was refusing PPN over the weekend. After discussion with Dr. Redman, today she is agreeable to PPN. Appreciate dietary recommendations for macronutrients. * Magnesium slightly low. D/w Dr. Redman, repleted 1gm outside of in PPN * Sodium normal at this time, chloride still elevated, will limit both in bag * Previously BSGs were elevated while on TPN, steroids likely contributory. Will cover the 60gm of dextrose in PPN with SQ Lantus and correctional insulin for now. * Minimal oral intake currently, patient would like to try and improve. * Lipids today, continue MWF 12/13: * Sodium and Chloride remain elevated. Limiting each in TPN bag. All other electrolytes within normal limits. * BSGs remain elevated during 8 hours TPN is infusing. Will increase insulin in TPN bag to 20 units today. No change to subcutaneous regimen. * Lipids have been changed to 40 g thrice weekly (MWF). Continue to monitor Triglycerides closely. Dropped to 140 yesterday with repeat level for tomorrow. * Dietitian recommends 250 cc of D5W daily to meet patient's fluid goals since no fluid intake via PO route. Provider accepting of this today. Reassess daily. Plan: * For Day #6 of TPN administration, the following will be ordered: * Macronutrients: * Amino Acids: 51 grams/day * Dextrose: 60 grams/day * Lipids: 40 grams on Mondays, Wednesdays, and Fridays * Micronutrients: * Potassium acetate: 40 mEq/day * Sodium acetate: 20 mEq/day * Sodium phosphate: 15 mMol/day * Magnesium sulfate: 8.12 mEq/day * Calcium gluconate: 4.65 mEq/day * Multivitamins: 10 mL/day * Trace elements: 1 mL/day * Thiamine: 100 mg/day * Folic Acid: 1 mg/day * Total volume of 1260 mL will be infused over 24 hours and will provide 808 kcal/day * Labs will be ordered per PN protocol. * Pharmacy will follow and adjust PN orders on a daily basis. Thank you!
[2023-12-18] MEDS ORDERED: LANTUS PER UNIT CHARGE SC SCH (16:00)
[2023-12-18] MEDS: CLINOLIPID 20% IV FAT EMULSION 200 ML IV SCH (16:02)
[2023-12-18] MEDS: [UNRECOGNIZED DRUG - OTHER] IV SCH (16:03)
[2023-12-18] MEDS: PERIPHERAL TPN IV SCH (16:03)
[2023-12-18] MEDS: LANTUS PER UNIT CHARGE SC SCH (17:19)
[2023-12-18] MEDS: STOP CLINOLIPID SCH (21:58)
[2023-12-19 07:52] LABS: Hematocrit (blood only) 32.4 % (37.0-47.0); Mean Corpuscular Hemoglobin 29.3 pg (25.0-34.0); Mean Corpuscular Hgb Conc 30.9 g/dL (32.0-36.0); Mean Platelet Volume 13.7 fL (9.4-12.4); Platelet Count 212 K/uL (130-400); RDW Coefficient of Variation 17.5 % (11.5-14.5); RDW Standard Deviation 59.6 fL (36.4-46.3); Red Blood Count 3.41 M/uL (4.20-5.40); White Blood Count 10.76 K/ul (4.8-10.8)
[2023-12-19 08:06] LABS: BUN Creatinine Ratio 24.7 (10-20); Bilirubin,Total 0.5 mg/dl (0.2-1.0); Calcium 7.9 mg/dl (8.6-10.3); Creatinine Clr Calc Pharmacy 45.1 ml/min; Est GFR (African American) 86.3 ml/min; Est GFR (Non-African American) 74.5 ml/min; Magnesium 1.7 mg/dl (1.7-2.4); Phosphorus 3.7 mg/dl (2.5-4.9); Potassium 4.5 mmol/L (3.5-5.1)
[2023-12-19] MEDS ORDERED: [UNRECOGNIZED DRUG - OTHER] IV SCH (09:15)
[2023-12-19] MEDS ORDERED: PERIPHERAL TPN IV SCH (09:15)
--- NOTE | 2023-12-19 10:14 | Hospitalist Progress Note ---
Date of Service December 19, 2023 Assessment & Plan (1) Protein calorie malnutrition: (2) History of nephrectomy: (3) Pneumonia: (4) Septic shock: (5) Acidosis: (6) Leukocytosis: (7) Acute hypoxemic respiratory failure: Plan Patient is a 58 year old female with PMHx significant for chronic malabsorption syndrome post bypass, severe protein calorie malnutrition on TPN, iron deficiency anemia, copper deficiency, h/o right nephrectomy in 2022, bipolar disorder, anxiety, depression, tobacco use, migraine headache, nonspecific white matter changes, myelopathy who presented to the ER with multiple medical complaints including SOB, dry mouth and speech changes. Septic Shock Pneumonia Complicated UTI Acute hypoxic respiratory Failure Upon arrival to ER patient noted to be hypotensive and hypoxic in the 70's. In ER afebrile, P: 94, R: 30, BP: 87/56, 78% on RA CTA Chest: No pulmonary embolus. Groundglass opacities compatible with pneumonia and/or aspiration. CT Head, CTA Head & neck: unremarkable WBC: 36.7. Lactate: 1.6, procalcitonin: 4.5 Was on 10L nonrebreather with O2 sat low 90's UA was suggestive of infection, urine culture grew E coli and Klebsiella Blood Cx x2 sets NGTD Fungal Cx NGTD Drug screen negative Suspect sepsis secondary to pneumonia, UTI. In ER given meropenem, vancomycin, 2 L NSS Was admitted to the ICU, Was on Cefepime (transitioned to Rocephin) and azithromycin and Caspofungin. Caspofungin d/c Also on pressors for BP support as well as hydrocortisone. Pressors have since been weaned off, off steroids Was on hiFlo oxygen, wean as tolerated Pulmonology consulted, appreciate recs - transitioned to PO prednisone, now course finished, currently on RA Continue to monitor Acute metabolic Encephalopathy Pt now confused Likely in setting of above. Delirium precautions. Frequent reorientation, avoid sedating medications Continue to monitor 12/10- urgent head CT ordered, no stroke but concern for demyelinating disease. MRI brain ordered wo contrast due to pt's ROBINSON/CKD, Neurology consulted, appreciate recs. 12/11- pt with noted stent on KUB, cannot be cleared for MRI. Discussed with Neurology Dr Chaney who states that the MRI is needed and should either discuss comfort measures/palliative care with family or have pt transferred for further neurological evaluation. Per nursing, a family member will be coming in later today and pt's case and status will be discussed then. 12/12 - pt is now awake and talkative but does not really have eye contact , prefers looking to the side. able to answer simple questions but not able to hold meaningful conversation. discussed w/ Dr. Chaney - and CT had obtained. Also updated and discussed with pt's brother at the bedside. 12/13 awake and able to answers simple questions - but still confused and not able to have meaningful conversation. Required zyprexa overnight, in restraints this AM. 12/14 awake alert, but still confused, sitting in chair, no restraints at this time 12/16 awake alert - mental status overall seems much improved 12/18 mental status seems back to baseline Acute kidney injury Metabolic acidosis History of nephrectomy Cr: 2.2 on admission ABG pH of 7.21, HCO3 of 8, pCO2 of 19. AG of 9 at that time. Recent ROBINSON end of 10/2023 with Cr: 1.6 on 12/03 and 1.7 on 11/21. Prior baseline Cr: 1.0-1.2 IVF in ER. Did have CTA with contrast in ER Monitor renal function Nephrology consulted, appreciate recs -was on bicarb drip, since discontinued -Cr now at baseline Continue to monitor Bradycardia Episodes on 12/09 in setting of morphine d/c morphine, consider alternative nonnarcotic for pain management Continue to monitor on telemetry Stable/resolved at this time Acute on chronic Anemia Hgb below 7 on 12/08 Baseline of 7-8 required 2 physician consent as pt in acute delirium, family cannot be contacted Anemia panel Likely dilutional Continue to monitor H/H Protein calorie malnutrition Aspiration S/P bypass BMI: 14 On TPN 4 days a week at home Nutrition consult, speech consult Then was NPO due to aspiration TPN re-started on 12/07 Has been restarted 12/13 Pt pulled out her Saab which was used for TPN, gen. surg. consulted 12/14 pt has now diet, but poor oral intake 12/15 declining TPN/PPN 12/16 she is trying to improve her PO intake 12/17 today she is ok with PPN 12/18 discussed again poss. TPN/ PICC access - at this time pt does not wish to have that Depression with anxiety: History Bipolar disorder On home buspirone, duloxetine, olanzapine H/O migraine Denies current [place] Tobacco use Smokes 1/2ppd Smoking cessation encouraged DVT Prophylaxis: Heparin SQ Admission and Anticipated Discharge Date Admission Date: December 06, 2023 Subjective Pt seen in follow up, AMS, hypoxia/ pna Currently laying in bed in NAD, on RA she is awake and able to answer simple questions appropriately Denies fever, chills, chest pain or shortness of breath. Currently watching TV. last week pulled her Saab - pt not aware she did that - any she does not want a new one placed, she also does not want PICC at this time She is not eating/ drinking enough.. Yesterday, she agreed to PPN. She is trying to improve her PO intake, discussed w/ pharmacy - can take lactase pills w/ dairy products Brother updated over the phone yesterday. Review of Systems Review of Systems: All systems reviewed & are unremarkable except as noted in Subjective Physical Exam Physical Exam: General: thin, frail F in NAD, on RA HEENT: NC/AT CV: RRR Resp: no increased effort of breathing, no wheezing Abdomen: Soft Extremities: No edema in lower extremities bilaterally. Neuro: awake, alert, able to answer simple questions appropriately, speech fluent, no facial asymmetry, moves extremities Results & Data Results & Data Vital Signs (Past 12 Hours) Vital Signs Temp Pulse Pulse Resp BP Pulse Ox O2 Del Method 12/19/23 08:20 Room Air 12/19/23 07:48 36.5 C 64 17 98/61 L 96 Room Air 12/19/23 07:00 63 12/19/23 03:50 36.3 C L 58 L 16 102/63 96 Room Air 12/18/23 23:26 79 12/18/23 22:35 36.6 C 72 18 98/53 L 97 Room Air Laboratory Results 12/19/23 12/19/23 12/18/23 Range/Units 08:13 07:04 20:16 WBC 10.76 (4.8-10.8) K/ul RBC 3.41 L (4.20-5.40) M/uL Hgb 10.0 L (12.0-16.0) g/dl Hct 32.4 L (37.0-47.0) % MCV 95.0 (80.0-100.0) fL MCH 29.3 (25.0-34.0) pg MCHC 30.9 L (32.0-36.0) g/dL RDW Std Deviation 59.6 H (36.4-46.3) fL RDW Coeff of Mike 17.5 H (11.5-14.5) % Plt Count 212 (130-400) K/uL MPV 13.7 H (9.4-12.4) fL Sodium 141 (136-145) mmol/L Potassium 4.5 (3.5-5.1) mmol/L Chloride 107 (98-107) mmol/L Carbon Dioxide 30 (21-32) mmol/L Anion Gap 4 (3-11) BUN 21 (6-23) mg/dl Creatinine 0.85 (0.6-1.2) mg/dl Est Cr Clr Drug Dosing 45.1 ml/min Est GFR ( Amer) 86.3 ml/min Est GFR (Non-Af Amer) 74.5 ml/min BUN/Creatinine Ratio 24.7 H (10-20) Glucose 88 (70-99(Fasting)) mg/dl POC Glucose 96 82 (70-99) mg/dl Calcium 7.9 L (8.6-10.3) mg/dl Phosphorus 3.7 (2.5-4.9) mg/dl Magnesium 1.7 (1.7-2.4) mg/dl Total Bilirubin 0.5 (0.2-1.0) mg/dl AST 32 (13-39) U/L Alkaline Phosphatase 77 (34-104) U/L Triglycerides 79 (0-150) mg/dl 12/18/23 12/18/23 12/18/23 Range/Units 17:02 11:57 10:12 WBC (4.8-10.8) K/ul RBC (4.20-5.40) M/uL Hgb (12.0-16.0) g/dl Hct (37.0-47.0) % MCV (80.0-100.0) fL MCH (25.0-34.0) pg MCHC (32.0-36.0) g/dL RDW Std Deviation (36.4-46.3) fL RDW Coeff of Mike (11.5-14.5) % Plt Count (130-400) K/uL MPV (9.4-12.4) fL Sodium 143 (136-145) mmol/L Potassium 3.8 (3.5-5.1) mmol/L Chloride 109 H (98-107) mmol/L Carbon Dioxide 30 (21-32) mmol/L Anion Gap 4 (3-11) BUN 17 (6-23) mg/dl Creatinine 1.03 (0.6-1.2) mg/dl Est Cr Clr Drug Dosing 39.2 ml/min Est GFR ( Amer) 68.4 ml/min Est GFR (Non-Af Amer) 59.0 ml/min BUN/Creatinine Ratio 16.5 (10-20) Glucose 72 (70-99(Fasting)) mg/dl POC Glucose 115 H 77 (70-99) mg/dl Calcium 7.9 L (8.6-10.3) mg/dl Phosphorus 3.3 (2.5-4.9) mg/dl Magnesium 1.6 L (1.7-2.4) mg/dl Total Bilirubin (0.2-1.0) mg/dl AST (13-39) U/L Alkaline Phosphatase (34-104) U/L Triglycerides (0-150) mg/dl Medications Administered Current Inpatient Medications Buspirone HCl (Buspirone 5 Mg Tab) 5 mg PO BID ALEKS Stop: 01/15/24 20:59 Last Admin: 12/19/23 08:19 Dose: 5 mg Dextrose (Dextrose 50% 50 Ml Syringe) 25 - 50 ml IV UD PRN; Protocol PRN Reason: Hypoglycemia Protocol Stop: 01/07/24 15:14 Glucagon (Glucagon For Inj 1 Mg Vial) 1 mg IM UD PRN; Protocol PRN Reason: Hypoglycemia Protocol Stop: 01/07/24 15:14 Glucose (Glucose 40% Gel 15 Gm Tube) 15 - 30 gm PO UD PRN; Protocol PRN Reason: Hypoglycemia Protocol Stop: 01/07/24 15:14 Glucose (Glucose 10 Tab/Tube) 4 - 8 tab PO UD PRN; Protocol PRN Reason: Hypoglycemia Protocol Stop: 01/07/24 15:14 Heparin Sodium (Beef Lung) (Heparin 10 Unit/Ml 5 Ml Flush) 5 ml FLUSH PRN PRN PRN Reason: Flush Stop: 01/05/24 19:36 Heparin Sodium (Porcine) (Heparin Sod 5,000 Unit/0.5 Ml Vial) 5,000 units SQ Q12 [facility] Stop: 01/05/24 20:59 Last Admin: 12/08/23 20:32 Dose: 5,000 units Dextrose (D10w) 1,000 mls @ 0 mls/hr IV .Q0M PRN PRN Reason: protocol (see label comments) Stop: 01/07/24 13:10 Acetaminophen 600 mg/ EMPTY (BAG) 60 mls @ 0 mls/hr IV Q8H PRN; Protocol PRN Reason: Pain/Fever Stop: 01/09/24 09:58 Last Infusion: 12/13/23 20:45 Dose: Infused Amino Acids 1,260 ml/ (Nutrition (Parenteral)) 1,260 mls @ 53 mls/hr IV .[id number] [facility]; Protocol Stop: 12/19/23 15:46 Last Admin: 12/18/23 16:03 Dose: 53 mls/hr Amino Acids 1,260 ml/ (Nutrition (Parenteral)) 1,260 mls @ 53 mls/hr IV .[id number] [facility]; Protocol Stop: 12/20/23 15:46 Magnesium Sulfate/Dextrose (Magnesium Sulfate / D5w) 1 gm in 100 mls @ 50 mls/hr IV ONE ONE Stop: 12/19/23 12:12 Insulin Aspart (Insulin Aspart Per Unit Charge) 0 units SC ACHS [facility]; Protocol Stop: 01/15/24 07:29 Last Admin: 12/19/23 09:01 Dose: Not Given Insulin Glargine (Lantus Per Unit Charge) 6 units SC DAILY@1600 [facility] Stop: 01/17/24 15:59 Last Admin: 12/18/23 17:19 Dose: 6 units Lactase (Lactase 3000 Unit Tab) 3,000 units PO TIDM ALEKS Stop: 01/17/24 11:59 Last Admin: 12/19/23 08:20 Dose: 3,000 units Lactase (Lactase 3000 Unit Tab) 3,000 units PO TID PRN PRN Reason: DAIRY CONTAINING SNACKS Stop: 01/17/24 09:58 Melatonin (Melatonin 3 Mg Tab) 3 mg PO HS PRN PRN Reason: Sleep Stop: 01/15/24 19:25 Last Admin: 12/18/23 20:50 Dose: 3 mg Miscellaneous (Carbohydrates For Hypoglycemia ) 15 - 30 gm PO UD PRN PRN Reason: Hypoglycemia Treatment Stop: 01/07/24 15:14 Miscellaneous (Stop Clinolipid) 1 each N/A MoWeFr@2200 [facility] Stop: 01/17/24 21:59 Last Admin: 12/18/23 21:58 Dose: 1 each Miscellaneous Information (Tpn/Ppn Consult Pharmacy) 1 each N/A UD PRN PRN Reason: Consult Stop: 01/05/24 17:15 Miscellaneous Information (Pharmacy Glycemic Mgmt Consult) 1 each N/A UD PRN; Protocol PRN Reason: Consult Stop: 01/06/24 16:36 Multivitamins/Minerals (Multi Vit W/Minerals Liquid 15 Ml Udc) 15 ml PO QAM [facility] Stop: 01/14/24 11:59 Last Admin: 12/19/23 08:21 Dose: 15 ml Olanzapine (Olanzapine 10 Mg/2.1 Ml Sdv) 2.5 mg IM Q4H PRN PRN Reason: Agitation Stop: 01/12/24 23:54 Last Admin: 12/14/23 09:06 Dose: 2.5 mg Pantoprazole Sodium (Pantoprazole 40 Mg Tab) 40 mg PO QAM [facility] Stop: 01/16/24 08:59 Last Admin: 12/19/23 08:19 Dose: 40 mg Pregabalin (Pregabalin 25 Mg Cap) 25 mg PO BID [facility] Stop: 01/15/24 20:59 Last Admin: 12/19/23 08:23 Dose: 25 mg
[2023-12-19] MEDS: MAGNESIUM SULFATE / D5W 1 GM/100 ML BAG IV ONE (10:37)
[2023-12-19] MEDS: ONDANSETRON INJ 2 MG/ML 2 ML VIAL IV ONE (15:09)
--- NOTE | 2023-12-19 15:18 | Pharmacy Report ---
Pharmacy Glycemic Short Note 2 - Date of Service December 19, 2023 - Glycemic Short BSG Results (Last 24 hours): 12/18/23 12/18/23 12/19/23 17:02 20:16 07:04 Glucose 88 POC Glucose 115 H 82 12/19/23 12/19/23 08:13 12:04 Glucose POC Glucose 96 273 H OUTPATIENT ANTIDIABETIC REGIMEN: * Patient does not appear to be on any antidiabetic medications at home. * HbA1c: 6% (12/08/23) ASSESSMENT: 12/18: * Chandrika received 10 units of insulin yesterday (6 were basal) * Fasting BSG this AM slightly below goal range, will continue current basal regimen to cover dextrose in PPN and monitor for trends * Loosened Novolog further as BSGs remained below goal all day, will continue to monitor for trends 12/17: * Chandrika received 1 unit of bolus insulin yesterday * Fasting BSG this AM slightly elevated, but acceptable. She is agreeable to PPN today, so will cover the dextrose in PPN with Lantus. D10 infusion to be discontinued with re-initiation of PPN. * Loosened Novolog significantly with completion of steroid taper, minimal oral intake per documentation 12/16: * Patient received 5 units of basal and 4 units of bolus insulins yesterday. * BSGs yesterday were 393-342-52-166 mg/dl. * Since BSGs were at goal even with D10 fluid running, basal insulin for today was discontinued. Today was the last dose of Prednisone 10 mg. * Novolog parameters continued the same. Food intake minimal. 12/14: * Patient removed central line yesterday so received no TPN. Only received 10 units of basal + 1 unit of bolus. BSGs were [phone] mg/dL. * Fasting BSG was 101 mg/dL this AM. May be due to not receiving TPN yesterday but fastings had been trending down so will reduce basal today. * Plan to start D10W at 50 mL/hr continuously to provide fluids and some nutrition for patient who is refusing any further PN. This will provide 25 g of CHO every 6 hours. Added a carb ratio of 5 to start when D10W starts at noon today. Patient will require 5 units of Novolog every 6 hours to cover the carbs in the D10W fluids. Any additional prandial or correctional coverage will need to be added onto the 5 units. * Basal may need increased tomorrow given addition of D10W fluids. 12/11: * Chandrika received 22 units of insulin yesterday, 10 basal + 12 bolus. BSGs were [phone] mg/dL. * Remains on TPN with 101 g of dextrose, SoluMedrol 80 mg IV TID, Azithromycin and Ceftriaxone. * Fasting BSG was 133 mg/dL this AM. Will continue with 10 units of basal per day. Believe yesterday's "fasting" was falsely elevated secondary to TPN being ran over 24 hours. Now that TPN infuses over 8 hours, believe this is a more true representation of fasting BSG. * Given no real improvement in BSGs following correctional administration yesterday, will tighten correction factor significantly today. Also, given 101 g of dextrose in the TPN, will elect to add 10 units of insulin to the bag today. 12/10: * Patient remains on SoluMedrol 80 mg IV TID, Azithromycin and Ceftriaxone. NPO but gets daily TPN which contains 101 g of Dextrose per day. This has been changed to infuse over 8 hours so there is a chance that dinner or HS BSGs may increase. Will trend. * BSGs yesterday were [phone] mg/dL. Overnight checks were 173 and 170 mg/dL. Patient received only 2 units of correctional insulin last evening. Has not had any basal insulin since admission. * BSG this AM was 201 mg/dL. Will continue with current goal range. Tightened correctional insulin this morning. No carb coverage but may add scheduled doses of Novolog tomorrow to cover dextrose in TPN should BSGs remain high. Could also consider adding insulin to TPN bag but hesitant to do so in the event of hypoglycemia. Will add 10 units of Lantus daily for now. 12/07: * 58-year-old female past medical history of protein calorie malnutrition on TPN, who presented to hospital with shortness of breath, found to have hypoxia and hypotension. * Patient had elevated BSGs yesterday. Contributing factors include stress from acute illness requiring pressors, hydrocortisone IV, and bicarb infusion ordered in dextrose containing fluids. Today BSGs have were acceptable at 136-143-151 mg/dL thus far. * Today the bicarb infusion will stop this evening (~1800). The steroids will begin to taper starting tomorrow. Per provider, TPN should resume today. * Given significant changes in care today, will conservatively manage BSGs with correctional insulin only through today and reassess in the morning. PLAN FOR INPATIENT GLYCEMIC CONTROL: * Basal insulin * Lantus 6 units SQ daily @1600 (to cover dextrose in PPN) * Bolus insulin * NovoLog per scale ACHS * Goal Range: Low 110 mg/dL - High 140 mg/dL * Correction Factor: 45 mg/dL/unit * Carb ratio: 15 g/CHO/unit
[2023-12-19] MEDS: [UNRECOGNIZED DRUG - OTHER] IV SCH (16:06)
[2023-12-19] MEDS: PERIPHERAL TPN IV SCH (16:06)
[2023-12-20 10:37] LABS: Calcium 8.1 mg/dl (8.6-10.3); Creatinine Clr Calc Pharmacy 34.2 ml/min; Est GFR (African American) 73.6 ml/min; Est GFR (Non-African American) 63.5 ml/min; Phosphorus 4.7 mg/dl (2.5-4.9); Potassium 4.7 mmol/L (3.5-5.1)
--- NOTE | 2023-12-20 15:12 | Hospitalist Progress Note ---
Date of Service December 20, 2023 Assessment & Plan (1) Protein calorie malnutrition: (2) History of nephrectomy: (3) Pneumonia: (4) Septic shock: (5) Acidosis: (6) Leukocytosis: (7) Acute hypoxemic respiratory failure: Plan per previous hospitalist notes with addendum: Patient is a 58 year old female with PMHx significant for chronic malabsorption syndrome post bypass, severe protein calorie malnutrition on TPN, iron deficiency anemia, copper deficiency, h/o right nephrectomy in 2022, bipolar disorder, anxiety, depression, tobacco use, migraine headache, nonspecific white matter changes, myelopathy who presented to the ER with multiple medical complaints including SOB, dry mouth and speech changes. Septic Shock Pneumonia Complicated UTI Acute hypoxic respiratory Failure Upon arrival to ER patient noted to be hypotensive and hypoxic in the 70's. In ER afebrile, P: 94, R: 30, BP: 87/56, 78% on RA CTA Chest: No pulmonary embolus. Groundglass opacities compatible with pneumonia and/or aspiration. CT Head, CTA Head & neck: unremarkable WBC: 36.7. Lactate: 1.6, procalcitonin: 4.5 Was on 10L nonrebreather with O2 sat low 90's UA was suggestive of infection, urine culture grew E coli and Klebsiella Blood Cx x2 sets NGTD Fungal Cx NGTD Drug screen negative Suspect sepsis secondary to pneumonia, UTI. In ER given meropenem, vancomycin, 2 L NSS Was admitted to the ICU, Was on Cefepime (transitioned to Rocephin) and azithromycin and Caspofungin. Caspofungin d/c Also on pressors for BP support as well as hydrocortisone. Pressors have since been weaned off, off steroids Was on hiFlo oxygen, wean as tolerated Pulmonology consulted, appreciate recs - transitioned to PO prednisone, now course finished, currently on RA Continue to monitor 12/19 Stable overall On room air Acute metabolic Encephalopathy Pt now confused Likely in setting of above. Delirium precautions. Frequent reorientation, avoid sedating medications Continue to monitor 12/10- urgent head CT ordered, no stroke but concern for demyelinating disease. MRI brain ordered wo contrast due to pt's ROBINSON/CKD, Neurology consulted, appreciate recs. 12/11- pt with noted stent on KUB, cannot be cleared for MRI. Discussed with Neurology Dr Chaney who states that the MRI is needed and should either discuss comfort measures/palliative care with family or have pt transferred for further neurological evaluation. Per nursing, a family member will be coming in later today and pt's case and status will be discussed then. 12/12 - pt is now awake and talkative but does not really have eye contact , prefers looking to the side. able to answer simple questions but not able to hold meaningful conversation. discussed w/ Dr. Chaney - and CT had obtained. Also updated and discussed with pt's brother at the bedside. 12/13 awake and able to answers simple questions - but still confused and not able to have meaningful conversation. Required zyprexa overnight, in restraints this AM. 12/14 awake alert, but still confused, sitting in chair, no restraints at this time 12/16 awake alert - mental status overall seems much improved 12/18 mental status seems back to baseline 12/19 resolved Acute kidney injury Metabolic acidosis History of nephrectomy Cr: 2.2 on admission ABG pH of 7.21, HCO3 of 8, pCO2 of 19. AG of 9 at that time. Recent ROBINSON end of 10/2023 with Cr: 1.6 on 12/03 and 1.7 on 11/21. Prior baseline Cr: 1.0-1.2 IVF in ER. Did have CTA with contrast in ER Monitor renal function Nephrology consulted, appreciate recs -was on bicarb drip, since discontinued -Cr now at baseline Continue to monitor 12/19 resolved Bradycardia Episodes on 12/09 in setting of morphine d/c morphine, consider alternative nonnarcotic for pain management Continue to monitor on telemetry Stable/resolved at this time Acute on chronic Anemia Hgb below 7 on 12/08 Baseline of 7-8 required 2 physician consent as pt in acute delirium, family cannot be contacted Anemia panel Likely dilutional Continue to monitor H/H Protein calorie malnutrition Aspiration S/P bypass BMI: 14 On TPN 4 days a week at home Nutrition consult, speech consult Then was NPO due to aspiration TPN re-started on 12/07 Has been restarted 12/13 Pt pulled out her Saab which was used for TPN, gen. surg. consulted 12/14 pt has now diet, but poor oral intake 12/15 declining TPN/PPN 12/16 she is trying to improve her PO intake 12/17 today she is ok with PPN 12/18 discussed again poss. TPN/ PICC access - at this time pt does not wish to have that 12/19 Appetite improving, requesting to liberalize diet, changed to regular diet to improve nutrition Patient verbalized desire to have PPN discontinued soon, especially upon discharge Depression with anxiety: History Bipolar disorder On home buspirone, duloxetine, olanzapine H/O migraine Denies current SMALLWOOD Tobacco use Smokes 1/2ppd Smoking cessation encouraged DVT Prophylaxis: Heparin SQ plan of care discussed with patient in detail and at length all questions answered she is understanding, agreeable, comfortable with the plan of care Admission and Anticipated Discharge Date Admission Date: December 06, 2023 Subjective Follow-up for sepsis, pneumonia, etc. Seen resting in bed sleeping but easily awakened Oriented x 3, answers all questions appropriately Requesting to liberalize diet to regular so she can eat more I informed her that I will be changing her diet to regular and encouraged her to increase oral intake, patient is agreeable and in fact would like PPN to be discontinued soon Has right-sided headache, classical of her migraine, requesting Fioricet Denies other neurologic symptoms No chest pain, palpitations, dizziness No abdominal pain, nausea vomiting No other new symptom Review of Systems Review of Systems: all noted and negative except for above Physical Exam Physical Exam: General- oriented x 3, not in distress, speaks in sentences with no effort or accessory muscle use Eyes- anicteric Neck- no JVD Lungs- clear breath sounds bilaterally, no rales/wheezes Heart- normal rate, regular rhythm; no murmurs Abdomen- normal bowel sounds, nondistended, soft, nontender Extremities- no pretibial edema, no calf tenderness Neuro- alert, oriented x 3; no gross focal neurologic deficits Skin- warm & dry Results & Data Results & Data Vital Signs (Past 12 Hours) Vital Signs Temp Pulse Pulse Resp BP Pulse Ox O2 Del Method 12/20/23 14:47 81 12/20/23 12:00 36.7 C 72 18 103/61 97 Room Air 12/20/23 08:00 Room Air 12/20/23 07:58 68 12/20/23 07:38 36.7 C 69 16 102/57 L 96 Room Air 12/20/23 03:28 36.8 C 62 18 100/60 94 Room Air all noted and reviewed including below
[2023-12-20] MEDS: CLINOLIPID 20% IV FAT EMULSION 200 ML IV SCH (16:35)
[2023-12-20] MEDS: [UNRECOGNIZED DRUG - OTHER] IV SCH (16:36)
[2023-12-20] MEDS: PERIPHERAL TPN IV SCH (16:36)
[2023-12-20] MEDS: BUTALBITAL/ACETAMIN/CAFFEINE TAB PO PRN (16:53)
[2023-12-21 11:13] LABS: BUN Creatinine Ratio 43.2 (10-20); Calcium 8.5 mg/dl (8.6-10.3); Creatinine Clr Calc Pharmacy 36.3 ml/min; Est GFR (African American) 75.5 ml/min; Est GFR (Non-African American) 65.1 ml/min; Phosphorus 4.4 mg/dl (2.5-4.9); Potassium 5.3 mmol/L (3.5-5.1)
--- NOTE | 2023-12-21 13:30 | Pharmacy Report ---
Pharmacy Glycemic Sign Off Nt - Date of Service December 21, 2023 - Assessment & Plan ASSESSMENT: * Pharmacy was consulted by Dr. Anguiano on 12/07/23 for glycemic control and to write orders per [facility] inpatient glycemic control protocol. * Initially consulted for steroid induced hyperglycemia in the ICU. Patient has been off steroids since 12/17/23. * Patient has required little insulin over the past several days (0-10 units per day). * Fasting BSG of 145 mg/dL (however not true fasting per PPN infusing). She last received basal insulin on 12/17/23. PPN discontinued today, therefore I anticipate improvement. * Do not anticipate further changes in patient status that would quickly de teriorate glycemic control (i.e. patient to be NPO for upcoming procedure, steroids tapering, starting tube feedings, etc). * Pharmacy is signing off of glycemic consult and will no longer be making adjustments to inpatient regimen. Please feel free to re-consult if needed. Thank you.
--- NOTE | 2023-12-21 19:14 | Hospitalist Progress Note ---
Date of Service December 21, 2023 Assessment & Plan (1) Protein calorie malnutrition: (2) History of nephrectomy: (3) Pneumonia: (4) Septic shock: (5) Acidosis: (6) Leukocytosis: (7) Acute hypoxemic respiratory failure: Plan per previous hospitalist notes with addendum: Patient is a 58 year old female with PMHx significant for chronic malabsorption syndrome post bypass, severe protein calorie malnutrition on TPN, iron deficiency anemia, copper deficiency, h/o right nephrectomy in 2022, bipolar disorder, anxiety, depression, tobacco use, migraine headache, nonspecific white matter changes, myelopathy who presented to the ER with multiple medical complaints including SOB, dry mouth and speech changes. Septic Shock Pneumonia Complicated UTI Acute hypoxic respiratory Failure Upon arrival to ER patient noted to be hypotensive and hypoxic in the 70's. In ER afebrile, P: 94, R: 30, BP: 87/56, 78% on RA CTA Chest: No pulmonary embolus. Groundglass opacities compatible with pneumonia and/or aspiration. CT Head, CTA Head & neck: unremarkable WBC: 36.7. Lactate: 1.6, procalcitonin: 4.5 Was on 10L nonrebreather with O2 sat low 90's UA was suggestive of infection, urine culture grew E coli and Klebsiella Blood Cx x2 sets NGTD Fungal Cx NGTD Drug screen negative Suspect sepsis secondary to pneumonia, UTI. In ER given meropenem, vancomycin, 2 L NSS Was admitted to the ICU, Was on Cefepime (transitioned to Rocephin) and azithromycin and Caspofungin. Caspofungin d/c Also on pressors for BP support as well as hydrocortisone. Pressors have since been weaned off, off steroids Was on hiFlo oxygen, wean as tolerated Pulmonology consulted, appreciate recs - transitioned to PO prednisone, now course finished, currently on RA Continue to monitor 12/20 remains Stable overall On room air Acute metabolic Encephalopathy Pt now confused Likely in setting of above. Delirium precautions. Frequent reorientation, avoid sedating medications Continue to monitor 12/10- urgent head CT ordered, no stroke but concern for demyelinating disease. MRI brain ordered wo contrast due to pt's ROBINSON/CKD, Neurology consulted, appreciate recs. 12/11- pt with noted stent on KUB, cannot be cleared for MRI. Discussed with Neurology Dr Chaney who states that the MRI is needed and should either discuss comfort measures/palliative care with family or have pt transferred for further neurological evaluation. Per nursing, a family member will be coming in later today and pt's case and status will be discussed then. 12/12 - pt is now awake and talkative but does not really have eye contact , prefers looking to the side. able to answer simple questions but not able to hold meaningful conversation. discussed w/ Dr. Chaney - and CT had obtained. Also updated and discussed with pt's brother at the bedside. 12/13 awake and able to answers simple questions - but still confused and not able to have meaningful conversation. Required zyprexa overnight, in restraints this AM. 12/14 awake alert, but still confused, sitting in chair, no restraints at this time 12/16 awake alert - mental status overall seems much improved 12/18 mental status seems back to baseline 12/20 resolved Acute kidney injury Metabolic acidosis History of nephrectomy Cr: 2.2 on admission ABG pH of 7.21, HCO3 of 8, pCO2 of 19. AG of 9 at that time. Recent ROBINSON end of 10/2023 with Cr: 1.6 on 12/03 and 1.7 on 11/21. Prior baseline Cr: 1.0-1.2 IVF in ER. Did have CTA with contrast in ER Monitor renal function Nephrology consulted, appreciate recs -was on bicarb drip, since discontinued -Cr now at baseline Continue to monitor 12/20 resolved Bradycardia Episodes on 12/09 in setting of morphine d/c morphine, consider alternative nonnarcotic for pain management Continue to monitor on telemetry Stable/resolved at this time Acute on chronic Anemia Hgb below 7 on 12/08 Baseline of 7-8 required 2 physician consent as pt in acute delirium, family cannot be contacted Anemia panel Likely dilutional Continue to monitor H/H Protein calorie malnutrition Aspiration S/P bypass BMI: 14 On TPN 4 days a week at home Nutrition consult, speech consult Then was NPO due to aspiration TPN re-started on 12/07 Has been restarted 12/13 Pt pulled out her Saab which was used for TPN, gen. surg. consulted 12/14 pt has now diet, but poor oral intake 12/15 declining TPN/PPN 12/16 she is trying to improve her PO intake 12/17 today she is ok with PPN 12/18 discussed again poss. TPN/ PICC access - at this time pt does not wish to have that 12/19 Appetite improving, requesting to liberalize diet, changed to regular diet to improve nutrition Patient verbalized desire to have PPN discontinued soon, especially upon discharge 12/20 appetite continues to improve Depression with anxiety: History Bipolar disorder On home buspirone, duloxetine, olanzapine H/O migraine Denies current SMALLWOOD Tobacco use Smokes 1/2ppd Smoking cessation encouraged DVT Prophylaxis: Heparin SQ plan of care discussed with patient in detail and at length all questions answered she is understanding, agreeable, comfortable with the plan of care Admission and Anticipated Discharge Date Admission Date: December 06, 2023 Subjective Follow-up for pneumonia, etc. Seen resting in bed, sitting up, comfortable, not in distress States she feels fine overall Appetite improving Denies shortness of breath, chest pain, nausea vomiting trying to ambulate more No other new symptoms Review of Systems 2 Review of Systems: all noted and negative except for above Physical Exam Physical Exam: General- oriented x 3, not in distress, speaks in sentences with no effort or accessory muscle use Eyes- anicteric Neck- no JVD Lungs- clear breath sounds bilaterally, No crackles or wheezing Heart- normal rate, regular rhythm; no murmurs Abdomen- normal bowel sounds, nondistended, soft, nontender Extremities- no pretibial edema, no calf tenderness Neuro- alert, oriented x 3; no gross focal neurologic deficits Skin- warm & dry Results & Data Results & Data Vital Signs (Past 12 Hours) Vital Signs Temp Pulse Pulse Resp BP Pulse Ox O2 Del Method 12/21/23 15:54 36.8 C 90 16 90/61 L 97 Room Air 12/21/23 15:12 12/21/23 11:42 37.0 C 102 H 18 112/72 97 Room Air 12/21/23 11:30 Room Air 12/21/23 07:50 36.8 C 81 18 106/67 97 Room Air 12/21/23 07:42 67 O2 Flow Rate 12/21/23 15:54 12/21/23 15:12 0 12/21/23 11:42 12/21/23 11:30 12/21/23 07:50 12/21/23 07:42 all noted and reviewed including below
[2023-12-21] MEDS: DICYCLOMINE HCL 10 MG CAP PO ONE (19:58)
[2023-12-22 07:34] LABS: BUN Creatinine Ratio 42.9 (10-20); Calcium 8.3 mg/dl (8.6-10.3); Creatinine Clr Calc Pharmacy 36.3 ml/min; Est GFR (African American) 72.7 ml/min; Est GFR (Non-African American) 62.7 ml/min; Magnesium 1.9 mg/dl (1.7-2.4); Phosphorus 4.2 mg/dl (2.5-4.9); Potassium 4.9 mmol/L (3.5-5.1)
--- NOTE | 2023-12-22 18:05 | Hospitalist Progress Note ---
Date of Service December 22, 2023 Assessment & Plan (1) Protein calorie malnutrition: (2) History of nephrectomy: (3) Pneumonia: (4) Septic shock: (5) Acidosis: (6) Leukocytosis: (7) Acute hypoxemic respiratory failure: Plan per previous hospitalist notes with addendum: Patient is a 58 year old female with PMHx significant for chronic malabsorption syndrome post bypass, severe protein calorie malnutrition on TPN, iron deficiency anemia, copper deficiency, h/o right nephrectomy in 2022, bipolar disorder, anxiety, depression, tobacco use, migraine headache, nonspecific white matter changes, myelopathy who presented to the ER with multiple medical complaints including SOB, dry mouth and speech changes. Septic Shock Pneumonia Complicated UTI Acute hypoxic respiratory Failure Upon arrival to ER patient noted to be hypotensive and hypoxic in the 70's. In ER afebrile, P: 94, R: 30, BP: 87/56, 78% on RA CTA Chest: No pulmonary embolus. Groundglass opacities compatible with pneumonia and/or aspiration. CT Head, CTA Head & neck: unremarkable WBC: 36.7. Lactate: 1.6, procalcitonin: 4.5 Was on 10L nonrebreather with O2 sat low 90's UA was suggestive of infection, urine culture grew E coli and Klebsiella Blood Cx x2 sets NGTD Fungal Cx NGTD Drug screen negative Suspect sepsis secondary to pneumonia, UTI. In ER given meropenem, vancomycin, 2 L NSS Was admitted to the ICU, Was on Cefepime (transitioned to Rocephin) and azithromycin and Caspofungin. Caspofungin d/c Also on pressors for BP support as well as hydrocortisone. Pressors have since been weaned off, off steroids Was on hiFlo oxygen, wean as tolerated Pulmonology consulted, appreciate recs - transitioned to PO prednisone, now course finished, currently on RA Continue to monitor 12/21 remains Stable overall On room air Continue PT and OT evaluation Patient still prefers to be discharged to home as much as possible Acute metabolic Encephalopathy Pt now confused Likely in setting of above. Delirium precautions. Frequent reorientation, avoid sedating medications Continue to monitor 12/10- urgent head CT ordered, no stroke but concern for demyelinating disease. MRI brain ordered wo contrast due to pt's ROBINSON/CKD, Neurology consulted, appreciate recs. 12/11- pt with noted stent on KUB, cannot be cleared for MRI. Discussed with Neurology Dr Chaney who states that the MRI is needed and should either discuss comfort measures/palliative care with family or have pt transferred for further neurological evaluation. Per nursing, a family member will be coming in later today and pt's case and status will be discussed then. 12/12 - pt is now awake and talkative but does not really have eye contact , prefers looking to the side. able to answer simple questions but not able to hold meaningful conversation. discussed w/ Dr. Chaney - and CT had obtained. Also updated and discussed with pt's brother at the bedside. 12/13 awake and able to answers simple questions - but still confused and not able to have meaningful conversation. Required zyprexa overnight, in restraints this AM. 12/14 awake alert, but still confused, sitting in chair, no restraints at this time 12/16 awake alert - mental status overall seems much improved 12/18 mental status seems back to baseline 12/21 resolved Acute kidney injury Metabolic acidosis History of nephrectomy Cr: 2.2 on admission ABG pH of 7.21, HCO3 of 8, pCO2 of 19. AG of 9 at that time. Recent ROBINSON end of 10/2023 with Cr: 1.6 on 12/03 and 1.7 on 11/21. Prior baseline Cr: 1.0-1.2 IVF in ER. Did have CTA with contrast in ER Monitor renal function Nephrology consulted, appreciate recs -was on bicarb drip, since discontinued -Cr now at baseline Continue to monitor 12/21 resolved Bradycardia Episodes on 12/09 in setting of morphine d/c morphine, consider alternative nonnarcotic for pain management Continue to monitor on telemetry Stable/resolved at this time Acute on chronic Anemia Hgb below 7 on 12/08 Baseline of 7-8 required 2 physician consent as pt in acute delirium, family cannot be contacted Anemia panel Likely dilutional Continue to monitor H/H Protein calorie malnutrition Aspiration S/P bypass BMI: 14 On TPN 4 days a week at home Nutrition consult, speech consult Then was NPO due to aspiration TPN re-started on 12/07 Has been restarted 12/13 Pt pulled out her Saab which was used for TPN, gen. surg. consulted 12/14 pt has now diet, but poor oral intake 12/15 declining TPN/PPN 12/16 she is trying to improve her PO intake 12/17 today she is ok with PPN 12/18 discussed again poss. TPN/ PICC access - at this time pt does not wish to have that 12/19 Appetite improving, requesting to liberalize diet, changed to regular diet to improve nutrition Patient verbalized desire to have PPN discontinued soon, especially upon discharge 12/21 appetite continues to improve Continue with regular diet Depression with anxiety: History Bipolar disorder On home buspirone, duloxetine, olanzapine H/O migraine Denies current SMALLWOOD Tobacco use Smokes 1/2ppd Smoking cessation encouraged DVT Prophylaxis: Heparin SQ plan of care discussed with patient in detail and at length all questions answered she is understanding, agreeable, comfortable with the plan of care Admission and Anticipated Discharge Date Admission Date: December 06, 2023 Subjective Follow-up for sepsis, etc. Seen resting in bed, comfortable, not in distress States she continues to feel improved overall Appetite is improving Still having some weakness while ambulating in the hallways No other new symptoms Review of Systems Review of Systems: all noted and negative except for above Physical Exam Physical Exam: General- oriented x 3, not in distress, speaks in sentences with no effort or accessory muscle use Eyes- anicteric Neck- no JVD Lungs- clear breath sounds bilaterally, no rales/wheezes Heart- normal rate, regular rhythm; no murmurs Abdomen- normal bowel sounds, nondistended, soft, nontender Extremities- no pretibial edema, no calf tenderness Neuro- alert, oriented x 3; no gross focal neurologic deficits Skin- warm & dry Results & Data Results & Data Vital Signs (Past 12 Hours) Vital Signs Temp Pulse Pulse Resp BP Pulse Ox O2 Del Method 12/22/23 16:48 115 H 12/22/23 15:37 37.6 C H 104 H 18 103/62 96 Room Air 12/22/23 11:47 37.1 C 108 H 16 94/67 L 97 Room Air 12/22/23 08:26 37.9 C H 80 16 116/69 95 Room Air 12/22/23 07:31 91 H all noted and reviewed including below
[2023-12-22] MEDS: oxyCODONE HCL IR 5 MG TAB (IMMEDIATE RELEASE) PO STA (20:15)
[2023-12-23 05:33] LABS: Appearance Urine Clear (Clear); Bacteria Urine Automated None Seen (None Seen); Bilirubin Urine Negative (Negative); Blood Urine Negative (Negative); Cast Urine Automated 0-2 /lpf (0-2); Color Urine Yellow; Epithelial Cell Urine Auto 0-2 /hpf (0-2); Glucose Urine UA Negative (Negative); Ketones Urine Negative (Negative); Leukocyte Esterase Urine Negative (Negative); Nitrite Urine Negative (Negative); Protein Urine 1+ (Negative); RBC Urine Automated 0-2 /hpf (0-2); Specific Gravity Urine 1.015 (1.000-1.030); Urobilinogen Urine Negative (Negative); WBC Urine Automated 0-5 /hpf (0-5)
[2023-12-23 06:32] LABS: BUN Creatinine Ratio 40.7 (10-20); Creatinine Clr Calc Pharmacy 41.6 ml/min; Est GFR (African American) 79.5 ml/min; Est GFR (Non-African American) 68.6 ml/min; Magnesium 1.7 mg/dl (1.7-2.4); Phosphorus 4.2 mg/dl (2.5-4.9); Potassium 4.6 mmol/L (3.5-5.1)
--- NOTE | 2023-12-23 17:36 | Hospitalist Progress Note ---
Date of Service December 23, 2023 Assessment & Plan (1) Protein calorie malnutrition: (2) History of nephrectomy: (3) Pneumonia: (4) Septic shock: (5) Acidosis: (6) Leukocytosis: (7) Acute hypoxemic respiratory failure: Plan per previous hospitalist notes with addendum: Patient is a 58 year old female with PMHx significant for chronic malabsorption syndrome post bypass, severe protein calorie malnutrition on TPN, iron deficiency anemia, copper deficiency, h/o right nephrectomy in 2022, bipolar disorder, anxiety, depression, tobacco use, migraine headache, nonspecific white matter changes, myelopathy who presented to the ER with multiple medical complaints including SOB, dry mouth and speech changes. Septic Shock Pneumonia Complicated UTI Acute hypoxic respiratory Failure Upon arrival to ER patient noted to be hypotensive and hypoxic in the 70's. In ER afebrile, P: 94, R: 30, BP: 87/56, 78% on RA CTA Chest: No pulmonary embolus. Groundglass opacities compatible with pneumonia and/or aspiration. CT Head, CTA Head & neck: unremarkable WBC: 36.7. Lactate: 1.6, procalcitonin: 4.5 Was on 10L nonrebreather with O2 sat low 90's UA was suggestive of infection, urine culture grew E coli and Klebsiella Blood Cx x2 sets NGTD Fungal Cx NGTD Drug screen negative Suspect sepsis secondary to pneumonia, UTI. In ER given meropenem, vancomycin, 2 L NSS Was admitted to the ICU, Was on Cefepime (transitioned to Rocephin) and azithromycin and Caspofungin. Caspofungin d/c Also on pressors for BP support as well as hydrocortisone. Pressors have since been weaned off, off steroids Was on hiFlo oxygen, wean as tolerated Pulmonology consulted, appreciate recs - transitioned to PO prednisone, now course finished, currently on RA Continue to monitor 12/21 remains Stable overall On room air Continue PT and OT evaluation Patient still prefers to be discharged to home as much as possible 12/22 (+) fever episode, once clinically appears fine no signs of infection continue to monitor Acute metabolic Encephalopathy Pt now confused Likely in setting of above. Delirium precautions. Frequent reorientation, avoid sedating medications Continue to monitor 12/10- urgent head CT ordered, no stroke but concern for demyelinating disease. MRI brain ordered wo contrast due to pt's ROBINSON/CKD, Neurology consulted, appreciate recs. 12/11- pt with noted stent on KUB, cannot be cleared for MRI. Discussed with Neurology Dr Chaney who states that the MRI is needed and should either discuss comfort measures/palliative care with family or have pt transferred for further neurological evaluation. Per nursing, a family member will be coming in later today and pt's case and status will be discussed then. 12/12 - pt is now awake and talkative but does not really have eye contact , prefers looking to the side. able to answer simple questions but not able to hold meaningful conversation. discussed w/ Dr. Chaney - and CT had obtained. Also updated and discussed with pt's brother at the bedside. 12/13 awake and able to answers simple questions - but still confused and not able to have meaningful conversation. Required zyprexa overnight, in restraints this AM. 12/14 awake alert, but still confused, sitting in chair, no restraints at this time 12/16 awake alert - mental status overall seems much improved 12/18 mental status seems back to baseline 12/21 resolved Acute kidney injury Metabolic acidosis History of nephrectomy Cr: 2.2 on admission ABG pH of 7.21, HCO3 of 8, pCO2 of 19. AG of 9 at that time. Recent ROBINSON end of 10/2023 with Cr: 1.6 on 12/03 and 1.7 on 11/21. Prior baseline Cr: 1.0-1.2 IVF in ER. Did have CTA with contrast in ER Monitor renal function Nephrology consulted, appreciate recs -was on bicarb drip, since discontinued -Cr now at baseline Continue to monitor 12/21 resolved Bradycardia Episodes on 12/09 in setting of morphine d/c morphine, consider alternative nonnarcotic for pain management Continue to monitor on telemetry Stable/resolved at this time Acute on chronic Anemia Hgb below 7 on 12/08 Baseline of 7-8 required 2 physician consent as pt in acute delirium, family cannot be contacted Anemia panel Likely dilutional Continue to monitor H/H Protein calorie malnutrition Aspiration S/P bypass BMI: 14 On TPN 4 days a week at home Nutrition consult, speech consult Then was NPO due to aspiration TPN re-started on 12/07 Has been restarted 12/13 Pt pulled out her Saab which was used for TPN, gen. surg. consulted 12/14 pt has now diet, but poor oral intake 12/15 declining TPN/PPN 12/16 she is trying to improve her PO intake 12/17 today she is ok with PPN 12/18 discussed again poss. TPN/ PICC access - at this time pt does not wish to have that 12/19 Appetite improving, requesting to liberalize diet, changed to regular diet to improve nutrition Patient verbalized desire to have PPN discontinued soon, especially upon discharge 12/21 appetite continues to improve Continue with regular diet Depression with anxiety: History Bipolar disorder On home buspirone, duloxetine, olanzapine H/O migraine Denies current SMALLWOOD Tobacco use Smokes 1/2ppd Smoking cessation encouraged DVT Prophylaxis: Heparin SQ plan of care discussed with patient in detail and at length all questions answered she is understanding, agreeable, comfortable with the plan of care Admission and Anticipated Discharge Date Admission Date: December 06, 2023 Subjective Follow-up for pneumonia, etc. Seen resting in bed, comfortable, not in distress States she feels fine overall Denies headache, sore throat, chest pain, shortness of breath, cough No abdominal pain, problems with urination or bowel movement No other new symptoms Review of Systems Review of Systems: all noted and negative except for above Physical Exam Physical Exam: General- oriented x 3, not in distress, speaks in sentences with no effort or accessory muscle use Eyes- anicteric Neck- no JVD Lungs- clear breath sounds bilaterally, no rales/wheezes Heart- normal rate, regular rhythm; no murmurs Abdomen- normal bowel sounds, nondistended, soft, nontender Extremities- no pretibial edema, no calf tenderness Neuro- alert, oriented x 3; no gross focal neurologic deficits Skin- warm & dry Results & Data Results & Data Vital Signs (Past 12 Hours) Vital Signs Temp Pulse Pulse Resp BP BP Pulse Ox 12/23/23 16:04 37.4 C 97 H 18 107/70 95 12/23/23 15:13 105 H 12/23/23 11:25 36.7 C 93 H 18 108/69 95 12/23/23 08:00 12/23/23 07:36 36.5 C 88 102/60 97 12/23/23 07:22 84 O2 Del Method 12/23/23 16:04 Room Air 12/23/23 15:13 12/23/23 11:25 Room Air 12/23/23 08:00 Room Air 12/23/23 07:36 Room Air 12/23/23 07:22 all noted and reviewed including below
[2023-12-23] MEDS ORDERED: VANCOMYCIN CONSULT ACTIVE PRN (19:17)
[2023-12-23] MEDS: MEROPENEM 500 MG in SYRINGE 0 ML IV SCH (19:50)
[2023-12-23 20:27] LABS: Basophils # (auto) 0.04 K/uL (0.00-0.20); Basophils % (auto) 0.3 %; Eosinophils # (auto) 0.21 K/uL (0.00-0.50); Eosinophils % (auto) 1.5 %; Hematocrit (blood only) 29.7 % (37.0-47.0); Hemoglobin 9.1 g/dl (12.0-16.0); Immature Granulocytes # (auto) 0.05 K/uL (0.01-0.20); Immature Granulocytes % (auto) 0.4 %; Lymphocytes # (auto) 1.45 K/uL (1.20-3.40); Lymphocytes % (auto) 10.5 %; Mean Corpuscular Hemoglobin 29.6 pg (25.0-34.0); Mean Corpuscular Hgb Conc 30.6 g/dL (32.0-36.0); Mean Corpuscular Volume 96.7 fL (80.0-100.0); Monocytes # (auto) 0.64 K/uL (0.11-0.59); Monocytes % (auto) 4.6 %; Neutrophils # (auto) 11.41 K/uL (1.40-6.50); Neutrophils % (auto) 82.7 %; Platelet Count 192 K/uL (130-400); RDW Coefficient of Variation 17.8 % (11.5-14.5); RDW Standard Deviation 63.1 fL (36.4-46.3); Red Blood Count 3.07 M/uL (4.20-5.40)
[2023-12-23] MEDS: KETOROLAC TROMETHAMINE 15 MG/ML VIAL IV ONE (20:42)
[2023-12-23] MEDS: VANCOMYCIN HCL 1,000 MG in SODIUM CHLORIDE 0.9% 250 ML IV ONE (20:54)
[2023-12-24] MEDS: VANCOMYCIN HCL 1,000 MG in SODIUM CHLORIDE 0.9% 250 ML IV SCH (08:25)
--- NOTE | 2023-12-24 08:58 | XRay Report ---
XR chest 1V portable CLINICAL HISTORY: fever, r/o pneumonia COMPARISON STUDY: Chest radiograph December 12, 2023. Chest CT December 06, 2023. FINDINGS: Frog lumbar spine scoliosis is incidentally noted. There is no pneumothorax or pleural effu flavia. Cardiomediastinal silhouette is stable. Asymmetric right lung airspace opacities have developed . Diffuse interstitial thickening has mildly decreased. IMPRESSION: Progression of right lung airspace opacities with slight decrease in diffuse interstitial thickening. The findings favor multifocal pneumonia. Asymmetric pulmonary edema could appear similar . ACT 112: Negative or not required by law. Electronically signed by: Serjio Reese M.D. 12/24/2023 8:56 AM
[2023-12-24 09:03] LABS: Basophils # (auto) 0.08 K/uL (0.00-0.20); Basophils % (auto) 0.7 %; Eosinophils # (auto) 0.25 K/uL (0.00-0.50); Eosinophils % (auto) 2.2 %; Hematocrit (blood only) 30.2 % (37.0-47.0); Hemoglobin 9.1 g/dl (12.0-16.0); Immature Granulocytes # (auto) 0.04 K/uL (0.01-0.20); Immature Granulocytes % (auto) 0.4 %; Lymphocytes # (auto) 1.65 K/uL (1.20-3.40); Lymphocytes % (auto) 14.7 %; Mean Corpuscular Hemoglobin 29.6 pg (25.0-34.0); Mean Corpuscular Hgb Conc 30.1 g/dL (32.0-36.0); Mean Corpuscular Volume 98.4 fL (80.0-100.0); Mean Platelet Volume 12.8 fL (9.4-12.4); Monocytes # (auto) 0.58 K/uL (0.11-0.59); Monocytes % (auto) 5.2 %; Neutrophils # (auto) 8.62 K/uL (1.40-6.50); Neutrophils % (auto) 76.8 %; Platelet Count 190 K/uL (130-400); RDW Coefficient of Variation 18.2 % (11.5-14.5); RDW Standard Deviation 65.2 fL (36.4-46.3); Red Blood Count 3.07 M/uL (4.20-5.40); White Blood Count 11.22 K/ul (4.8-10.8)
[2023-12-24 09:14] LABS: Albumin Globulin Ratio 1.1 (0.9-2); Albumin Level 2.8 gm/dl (3.4-5.0); BUN Creatinine Ratio 32.7 (10-20); Bilirubin,Total 0.3 mg/dl (0.2-1.0); Calcium 8.1 mg/dl (8.6-10.3); Creatinine Clr Calc Pharmacy 37.5 ml/min; Est GFR (African American) 70.1 ml/min; Est GFR (Non-African American) 60.5 ml/min; Globulin 2.6 gm/dl (2.5-4.0); Potassium 4.3 mmol/L (3.5-5.1); Total Protein 5.4 gm/dl (6.0-8.3)
[2023-12-24 14:20] LABS: Adenovirus PCR Not Detected (NotDetected); Bordetella parapertussis PCR Not Detected (NotDetected); Bordetella pertussis PCR Not Detected (NotDetected); Chlamydia pneumoniae PCR Not Detected (NotDetected); Coronavirus 229E PCR Not Detected (NotDetected); Coronavirus CoV-2 (COVID19)PCR DETECTED (NotDetected); Coronavirus HKU1 PCR Not Detected (NotDetected); Coronavirus NL63 PCR Not Detected (NotDetected); Coronavirus OC43PCR Not Detected (NotDetected); Human Metapneumovirus PCR Not Detected (NotDetected); Influenza A PCR Not Detected (NotDetected); Influenza B PCR Not Detected (NotDetected); Mycoplasma pneumoniae PCR Not Detected (NotDetected); Parainfluenza Virus 1 PCR Not Detected (NotDetected); Parainfluenza Virus 2 PCR Not Detected (NotDetected); Parainfluenza Virus 3 PCR Not Detected (NotDetected); Parainfluenza Virus 4 PCR Not Detected (NotDetected); Respiratory Syncytial VirusPCR Not Detected (NotDetected); Rhinovirus/Enterovirus PCR Not Detected (NotDetected)
--- NOTE | 2023-12-24 14:21 | Pharmacy Report ---
Pharmacy PK ABX Note - Date of Service December 24, 2023 - Assessment and Plan Microbiology 12/06/23 18:26 Urine,Clean Catch Urine Culture - Final Escherichia coli Klebsiella pneumoniae 12/22/23 21:13 Blood Aerobic Blood Culture - Preliminary 12/22/23 21:13 Blood Anaerobic Blood Culture - Preliminary No growth in Aerobic bottle after 24 hours. No growth in Anaerobic bottle after 24 hours. 12/22/23 21:01 Blood Aerobic Blood Culture - Preliminary 12/22/23 21:01 Blood Anaerobic Blood Culture - Preliminary No growth in Aerobic bottle after 24 hours. No growth in Anaerobic bottle after 24 hours. Laboratory Tests 12/06/23 12/19/23 12/23/23 Unknown 07:04 05:48 WBC 10.76 Creatinine 0.91 Est Cr Clr Drug Dosing Nasal Screen MRSA (PCR) Negative 12/23/23 12/23/23 12/24/23 05:48 20:13 08:36 WBC 13.80 H Creatinine 1.01 Est Cr Clr Drug Dosing 41.6 37.5 Nasal Screen MRSA (PCR) 12/24/23 12/24/23 08:36 Unknown WBC 11.22 H Creatinine Est Cr Clr Drug Dosing Nasal Screen MRSA (PCR) Pending Assessment 58 year old F receiving Vancomycin + Meropenem for empiric treatment of pneumonia. CXR favoring multifocal pneumonia. Original treatment started on adm ission on 12/05. Restarting antibiotics. Patient completed Azithromycin treatment 12/10-12/16. Pertinent microbiologic data listed above. Initial MRSA nasal negative, repeat pending. WBCs trending up, BCxs no growth to date. Renal function stable. * Day # 2 of antimicrobial therapy. Plan Vancomycin * 1000mg IV x1 dose last evening at 2044, then 1000mg IV Daily starting this AM. * Regimen is predicted to achieve target AUC/HONEY of 400-600 mg/L.hr * Random level ordered for: 12/25/23 with AM labs - vancomycin dose on hold until level evaluated by pharmacist. Meropenem 500mg IV Q8H Pharmacy will continue to follow and will adjust dose/frequency as necessary. Thank you. Pharmacy has transitioned to AUC monitoring for vancomycin. AUC/HONEY is the preferred PK/PD target and is associated with decreased risk of nephrotoxicity compared to traditional trough targets.
--- NOTE | 2023-12-24 14:51 | Hospitalist Progress Note ---
Date of Service December 24, 2023 Assessment & Plan (1) Protein calorie malnutrition: (2) History of nephrectomy: (3) Pneumonia: (4) Septic shock: (5) Acidosis: (6) Leukocytosis: (7) Acute hypoxemic respiratory failure: Plan per previous hospitalist notes with addendum: Patient is a 58 year old female with PMHx significant for chronic malabsorption syndrome post bypass, severe protein calorie malnutrition on TPN, iron deficiency anemia, copper deficiency, h/o right nephrectomy in 2022, bipolar disorder, anxiety, depression, tobacco use, migraine headache, nonspecific white matter changes, myelopathy who presented to the ER with multiple medical complaints including SOB, dry mouth and speech changes. Septic Shock Pneumonia Complicated UTI Acute hypoxic respiratory Failure Upon arrival to ER patient noted to be hypotensive and hypoxic in the 70's. In ER afebrile, P: 94, R: 30, BP: 87/56, 78% on RA CTA Chest: No pulmonary embolus. Groundglass opacities compatible with pneumonia and/or aspiration. CT Head, CTA Head & neck: unremarkable WBC: 36.7. Lactate: 1.6, procalcitonin: 4.5 Was on 10L nonrebreather with O2 sat low 90's UA was suggestive of infection, urine culture grew E coli and Klebsiella Blood Cx x2 sets NGTD Fungal Cx NGTD Drug screen negative Suspect sepsis secondary to pneumonia, UTI. In ER given meropenem, vancomycin, 2 L NSS Was admitted to the ICU, Was on Cefepime (transitioned to Rocephin) and azithromycin and Caspofungin. Caspofungin d/c Also on pressors for BP support as well as hydrocortisone. Pressors have since been weaned off, off steroids Was on hiFlo oxygen, wean as tolerated Pulmonology consulted, appreciate recs - transitioned to PO prednisone, now course finished, currently on RA Continue to monitor 12/21 remains Stable overall On room air Continue PT and OT evaluation Patient still prefers to be discharged to home as much as possible 12/22 (+) fever episode, once clinically appears fine no signs of infection continue to monitor 12/23 CXR: R sided pneumonia, new (+) COVID in [employer] UA pending Blood cultures pending Will discuss starting remdesivir with patient Acute metabolic Encephalopathy Pt now confused Likely in setting of above. Delirium precautions. Frequent reorientation, avoid sedating medications Continue to monitor 12/10- urgent head CT ordered, no stroke but concern for demyelinating disease. MRI brain ordered wo contrast due to pt's ROBINSON/CKD, Neurology consulted, appreciate recs. 12/11- pt with noted stent on KUB, cannot be cleared for MRI. Discussed with Neurology Dr Chaney who states that the MRI is needed and should either discuss comfort measures/palliative care with family or have pt transferred for further neurological evaluation. Per nursing, a family member will be coming in later today and pt's case and status will be discussed then. 12/12 - pt is now awake and talkative but does not really have eye contact , prefers looking to the side. able to answer simple questions but not able to hold meaningful conversation. discussed w/ Dr. Chaney - and CT had obtained. Also updated and discussed with pt's brother at the bedside. 12/13 awake and able to answers simple questions - but still confused and not able to have meaningful conversation. Required zyprexa overnight, in restraints this AM. 12/14 awake alert, but still confused, sitting in chair, no restraints at this time 12/16 awake alert - mental status overall seems much improved 12/18 mental status seems back to baseline 12/21 resolved Acute kidney injury Metabolic acidosis History of nephrectomy Cr: 2.2 on admission ABG pH of 7.21, HCO3 of 8, pCO2 of 19. AG of 9 at that time. Recent ROBINSON end of 10/2023 with Cr: 1.6 on 12/03 and 1.7 on 11/21. Prior baseline Cr: 1.0-1.2 IVF in ER. Did have CTA with contrast in ER Monitor renal function Nephrology consulted, appreciate recs -was on bicarb drip, since discontinued -Cr now at baseline Continue to monitor 12/21 resolved Bradycardia Episodes on 12/09 in setting of morphine d/c morphine, consider alternative nonnarcotic for pain management Continue to monitor on telemetry Stable/resolved at this time Acute on chronic Anemia Hgb below 7 on 12/08 Baseline of 7-8 required 2 physician consent as pt in acute delirium, family cannot be contacted Anemia panel Likely dilutional Continue to monitor H/H Protein calorie malnutrition Aspiration S/P bypass BMI: 14 On TPN 4 days a week at home Nutrition consult, speech consult Then was NPO due to aspiration TPN re-started on 12/07 Has been restarted 12/13 Pt pulled out her Saab which was used for TPN, gen. surg. consulted 12/14 pt has now diet, but poor oral intake 12/15 declining TPN/PPN 12/16 she is trying to improve her PO intake 12/17 today she is ok with PPN 12/18 discussed again poss. TPN/ PICC access - at this time pt does not wish to have that 12/19 Appetite improving, requesting to liberalize diet, changed to regular diet to improve nutrition Patient verbalized desire to have PPN discontinued soon, especially upon discharge 12/21 appetite continues to improve Continue with regular diet Depression with anxiety: History Bipolar disorder On home buspirone, duloxetine, olanzapine H/O migraine Denies current SMALLWOOD Tobacco use Smokes 1/2ppd Smoking cessation encouraged DVT Prophylaxis: Heparin SQ plan of care discussed with patient in detail and at length all questions answered she is understanding, agreeable, comfortable with the plan of care Admission and Anticipated Discharge Date Admission Date: December 06, 2023 Subjective ff up for Pneumonia, etc. Had another fever episode Seen sitting in bedside chair, not in distress States she feels cold, has some shortness of breath No cough No chest pain Had 2-3 loose bowel movements today No other new symptoms Review of Systems Review of Systems: all noted and negative except for above Physical Exam Physical Exam: General- oriented x 3, not in distress, speaks in sentences with no effort or accessory muscle use Eyes- anicteric Neck- no JVD Lungs- clear breath sounds , no crackles/wheezing BL Heart- normal rate, regular rhythm; no murmurs Abdomen- normal bowel sounds, nondistended, soft, nontender Extremities- no pretibial edema, no calf tenderness Neuro- alert, oriented x 3; no gross focal neurologic deficits Skin- warm & dry Results & Data Results & Data Vital Signs (Past 12 Hours) Vital Signs Temp Pulse Pulse Resp BP BP Pulse Ox 12/24/23 11:54 70 18 106/69 97 12/24/23 08:00 12/24/23 07:48 36.3 C L 73 18 99/59 L 97 12/24/23 07:13 65 12/24/23 03:51 36.4 C L 77 16 93/57 L 95 O2 Del Method 12/24/23 11:54 Room Air 12/24/23 08:00 Room Air 12/24/23 07:48 Room Air 12/24/23 07:13 12/24/23 03:51 Room Air all noted and reviewed including below
[2023-12-24 15:41] LABS: Appearance Urine Clear (Clear); Bacteria Urine Automated None Seen (None Seen); Bilirubin Urine Negative (Negative); Blood Urine Negative (Negative); Color Urine Yellow; Epithelial Cell Urine Auto 0-2 /hpf (0-2); Glucose Urine UA Negative (Negative); Ketones Urine Negative (Negative); Leukocyte Esterase Urine 1+ (Negative); Nitrite Urine Negative (Negative); Protein Urine 1+ (Negative); Specific Gravity Urine 1.021 (1.000-1.030); Urobilinogen Urine Negative (Negative); WBC Urine Automated 21-50 /hpf (0-5)
[2023-12-24 17:34] LABS: C Reactive Protein 9.02 mg/dl (0-0.5)
[2023-12-24] MEDS: REMDESIVIR 200 MG in SODIUM CHLORIDE 0.9% 210 ML IV STA (18:53)
[2023-12-25 07:13] LABS: Basophils # (auto) 0.08 K/uL (0.00-0.20); Basophils % (auto) 1.2 %; Eosinophils # (auto) 0.26 K/uL (0.00-0.50); Eosinophils % (auto) 3.9 %; Hematocrit (blood only) 28.1 % (37.0-47.0); Hemoglobin 8.5 g/dl (12.0-16.0); Immature Granulocytes # (auto) 0.02 K/uL (0.01-0.20); Immature Granulocytes % (auto) 0.3 %; Lymphocytes # (auto) 1.63 K/uL (1.20-3.40); Lymphocytes % (auto) 24.3 %; Mean Corpuscular Hemoglobin 29.4 pg (25.0-34.0); Mean Corpuscular Hgb Conc 30.2 g/dL (32.0-36.0); Mean Corpuscular Volume 97.2 fL (80.0-100.0); Mean Platelet Volume 12.6 fL (9.4-12.4); Monocytes # (auto) 0.37 K/uL (0.11-0.59); Monocytes % (auto) 5.5 %; Neutrophils # (auto) 4.36 K/uL (1.40-6.50); Neutrophils % (auto) 64.8 %; Platelet Count 186 K/uL (130-400); RDW Coefficient of Variation 17.7 % (11.5-14.5); Red Blood Count 2.89 M/uL (4.20-5.40); White Blood Count 6.72 K/ul (4.8-10.8)
[2023-12-25] MEDS ORDERED: VANCOMYCIN LEVEL ONE (07:30)
[2023-12-25 11:04] LABS: Albumin Globulin Ratio 1.1 (0.9-2); Albumin Level 2.8 gm/dl (3.4-5.0); BUN Creatinine Ratio 25.9 (10-20); Bilirubin,Total 0.2 mg/dl (0.2-1.0); Calcium 8.3 mg/dl (8.6-10.3); Creatinine Clr Calc Pharmacy 35.1 ml/min; Est GFR (African American) 64.6 ml/min; Est GFR (Non-African American) 55.8 ml/min; Globulin 2.5 gm/dl (2.5-4.0); Potassium 5.2 mmol/L (3.5-5.1); Total Protein 5.3 gm/dl (6.0-8.3)
[2023-12-25] MEDS: KETOROLAC TROMETHAMINE 15 MG/ML VIAL IV ONE (13:59)
--- NOTE | 2023-12-25 17:02 | Hospitalist Progress Note ---
Date of Service December 25, 2023 Assessment & Plan (1) Protein calorie malnutrition: (2) History of nephrectomy: (3) Pneumonia: (4) Septic shock: (5) Acidosis: (6) Leukocytosis: (7) Acute hypoxemic respiratory failure: Plan per previous hospitalist notes with addendum: Patient is a 58 year old female with PMHx significant for chronic malabsorption syndrome post bypass, severe protein calorie malnutrition on TPN, iron deficiency anemia, copper deficiency, h/o right nephrectomy in 2022, bipolar disorder, anxiety, depression, tobacco use, migraine headache, nonspecific white matter changes, myelopathy who presented to the ER with multiple medical complaints including SOB, dry mouth and speech changes. Septic Shock Pneumonia Complicated UTI Acute hypoxic respiratory Failure Upon arrival to ER patient noted to be hypotensive and hypoxic in the 70's. In ER afebrile, P: 94, R: 30, BP: 87/56, 78% on RA CTA Chest: No pulmonary embolus. Groundglass opacities compatible with pneumonia and/or aspiration. CT Head, CTA Head & neck: unremarkable WBC: 36.7. Lactate: 1.6, procalcitonin: 4.5 Was on 10L nonrebreather with O2 sat low 90's UA was suggestive of infection, urine culture grew E coli and Klebsiella Blood Cx x2 sets NGTD Fungal Cx NGTD Drug screen negative Suspect sepsis secondary to pneumonia, UTI. In ER given meropenem, vancomycin, 2 L NSS Was admitted to the ICU, Was on Cefepime (transitioned to Rocephin) and azithromycin and Caspofungin. Caspofungin d/c Also on pressors for BP support as well as hydrocortisone. Pressors have since been weaned off, off steroids Was on hiFlo oxygen, wean as tolerated Pulmonology consulted, appreciate recs - transitioned to PO prednisone, now course finished, currently on RA Continue to monitor 12/21 remains Stable overall On room air Continue PT and OT evaluation Patient still prefers to be discharged to home as much as possible 12/22 (+) fever episode, once clinically appears fine no signs of infection continue to monitor 12/23 CXR: R sided pneumonia, new (+) COVID in [employer] UA pending Blood cultures pending Will discuss starting remdesivir with patient 12/24 stable on room air crea, lfts ok blood cultures: negative continue Remdesivir day 2 continue Heparin SC q12h incentive spirometry, flutter valve Acute metabolic Encephalopathy Pt now confused Likely in setting of above. Delirium precautions. Frequent reorientation, avoid sedating medications Continue to monitor 12/10- urgent head CT ordered, no stroke but concern for demyelinating disease. MRI brain ordered wo contrast due to pt's ROBINSON/CKD, Neurology consulted, appreciate recs. 12/11- pt with noted stent on KUB, cannot be cleared for MRI. Discussed with Neurology Dr Chaney who states that the MRI is needed and should either discuss comfort measures/palliative care with family or have pt transferred for further neurological evaluation. Per nursing, a family member will be coming in later today and pt's case and status will be discussed then. 12/12 - pt is now awake and talkative but does not really have eye contact , prefers looking to the side. able to answer simple questions but not able to hold meaningful conversation. discussed w/ Dr. Chaney - and CT had obtained. Also updated and discussed with pt's brother at the bedside. 12/13 awake and able to answers simple questions - but still confused and not able to have meaningful conversation. Required zyprexa overnight, in restraints this AM. 12/14 awake alert, but still confused, sitting in chair, no restraints at this time 12/16 awake alert - mental status overall seems much improved 12/18 mental status seems back to baseline 12/21 resolved Acute kidney injury Metabolic acidosis History of nephrectomy Cr: 2.2 on admission ABG pH of 7.21, HCO3 of 8, pCO2 of 19. AG of 9 at that time. Recent ROBINSON end of 10/2023 with Cr: 1.6 on 12/03 and 1.7 on 11/21. Prior baseline Cr: 1.0-1.2 IVF in ER. Did have CTA with contrast in ER Monitor renal function Nephrology consulted, appreciate recs -was on bicarb drip, since discontinued -Cr now at baseline Continue to monitor 12/21 resolved Bradycardia Episodes on 12/09 in setting of morphine d/c morphine, consider alternative nonnarcotic for pain management Continue to monitor on telemetry Stable/resolved at this time Acute on chronic Anemia Hgb below 7 on 12/08 Baseline of 7-8 required 2 physician consent as pt in acute delirium, family cannot be contacted Anemia panel Likely dilutional Continue to monitor H/H Protein calorie malnutrition Aspiration S/P bypass BMI: 14 On TPN 4 days a week at home Nutrition consult, speech consult Then was NPO due to aspiration TPN re-started on 12/07 Has been restarted 12/13 Pt pulled out her Saab which was used for TPN, gen. surg. consulted 12/14 pt has now diet, but poor oral intake 12/15 declining TPN/PPN 12/16 she is trying to improve her PO intake 12/17 today she is ok with PPN 12/18 discussed again poss. TPN/ PICC access - at this time pt does not wish to have that 12/19 Appetite improving, requesting to liberalize diet, changed to regular diet to improve nutrition Patient verbalized desire to have PPN discontinued soon, especially upon discharge 12/24 appetite continues to improve Continue with regular diet Depression with anxiety: History Bipolar disorder On home buspirone, duloxetine, olanzapine H/O migraine Denies current SMALLWOOD Tobacco use Smokes 1/2ppd Smoking cessation encouraged DVT Prophylaxis: Heparin SQ plan of care discussed with patient in detail and at length all questions answered she is understanding, agreeable, comfortable with the plan of care Admission and Anticipated Discharge Date Admission Date: December 06, 2023 Subjective Follow-up for COVID-19 infection with pneumonia, etc. Seen sitting up in bed, comfortable, not in distress States she feels little bit better than yesterday Still having some headache, shortness of breath is resolved Has intermittent cough No other new symptoms Review of Systems Review of Systems: all noted and negative except for above Physical Exam Physical Exam: General- oriented x 3, not in distress, speaks in sentences with no effort or accessory muscle use Eyes- anicteric Neck- no JVD Lungs- clear breath sounds bilaterally, no rales/wheezes Heart- normal rate, regular rhythm; no murmurs Abdomen- normal bowel sounds, nondistended, soft, nontender Extremities- no pretibial edema, no calf tenderness Neuro- alert, oriented x 3; no gross focal neurologic deficits Skin- warm & dry Results & Data Results & Data Vital Signs (Past 12 Hours) Vital Signs Temp Pulse Pulse Resp BP Pulse Ox O2 Del Method 12/25/23 16:21 102 H 12/25/23 15:47 36.8 C 99 H 16 107/68 96 Room Air 12/25/23 11:12 36.6 C 95 H 16 122/69 96 Room Air 12/25/23 08:00 76 12/25/23 07:39 37.0 C 79 16 109/67 95 Room Air all noted and reviewed including below
[2023-12-25] MEDS: REMDESIVIR 100 MG in SODIUM CHLORIDE 0.9% 230 ML IV SCH (19:47)
[2023-12-26 06:31] LABS: Basophils # (auto) 0.07 K/uL (0.00-0.20); Basophils % (auto) 1.4 %; Eosinophils # (auto) 0.35 K/uL (0.00-0.50); Hematocrit (blood only) 26.6 % (37.0-47.0); Hemoglobin 7.9 g/dl (12.0-16.0); Immature Granulocytes # (auto) 0.02 K/uL (0.01-0.20); Immature Granulocytes % (auto) 0.4 %; Lymphocytes # (auto) 2.05 K/uL (1.20-3.40); Lymphocytes % (auto) 41.2 %; Mean Corpuscular Hgb Conc 29.7 g/dL (32.0-36.0); Mean Corpuscular Volume 97.8 fL (80.0-100.0); Monocytes # (auto) 0.35 K/uL (0.11-0.59); Neutrophils # (auto) 2.14 K/uL (1.40-6.50); Platelet Count 180 K/uL (130-400); RDW Coefficient of Variation 17.4 % (11.5-14.5); RDW Standard Deviation 63.2 fL (36.4-46.3); Red Blood Count 2.72 M/uL (4.20-5.40); White Blood Count 4.98 K/ul (4.8-10.8)
[2023-12-26 06:59] LABS: Polychromasia 1+
[2023-12-26 07:00] LABS: Albumin Level 2.6 gm/dl (3.4-5.0); Bilirubin,Total 0.2 mg/dl (0.2-1.0); Calcium 7.8 mg/dl (8.6-10.3); Potassium 4.7 mmol/L (3.5-5.1)
[2023-12-26 07:06] LABS: Albumin Globulin Ratio 1.1 (0.9-2); BUN Creatinine Ratio 29.6 (10-20); Creatinine Clr Calc Pharmacy 35.5 ml/min; Est GFR (African American) 64.6 ml/min; Est GFR (Non-African American) 55.8 ml/min; Globulin 2.4 gm/dl (2.5-4.0)
[2023-12-26] MEDS ORDERED: ACETAMINOPHEN 1,000 MG/100 ML VIAL IV STA (07:57)
[2023-12-26] MEDS: ACETAMINOPHEN 10MG/ML Custom 600 MG in EMPTY BAG 0 ML IV STA (08:53)
[2023-12-26] MEDS: KETOROLAC TROMETHAMINE 15 MG/ML VIAL IM ONE (08:53)
[2023-12-26] MEDS: DIPHENOXYLATE/ATROPINE 2.5/0.025MG TAB PO PRN (13:23)
[2023-12-26] MEDS: oxyCODONE HCL IR 5 MG TAB (IMMEDIATE RELEASE) PO STA (13:23)
--- NOTE | 2023-12-26 15:31 | Hospitalist Progress Note ---
Date of Service December 26, 2023 Assessment & Plan (1) Protein calorie malnutrition: (2) History of nephrectomy: (3) Pneumonia: (4) Septic shock: (5) Acidosis: (6) Leukocytosis: (7) Acute hypoxemic respiratory failure: Plan per previous hospitalist notes with addendum: Patient is a 58 year old female with PMHx significant for chronic malabsorption syndrome post bypass, severe protein calorie malnutrition on TPN, iron deficiency anemia, copper deficiency, h/o right nephrectomy in 2022, bipolar disorder, anxiety, depression, tobacco use, migraine headache, nonspecific white matter changes, myelopathy who presented to the ER with multiple medical complaints including SOB, dry mouth and speech changes. Septic Shock Pneumonia Complicated UTI Acute hypoxic respiratory Failure Upon arrival to ER patient noted to be hypotensive and hypoxic in the 70's. In ER afebrile, P: 94, R: 30, BP: 87/56, 78% on RA CTA Chest: No pulmonary embolus. Groundglass opacities compatible with pneumonia and/or aspiration. CT Head, CTA Head & neck: unremarkable WBC: 36.7. Lactate: 1.6, procalcitonin: 4.5 Was on 10L nonrebreather with O2 sat low 90's UA was suggestive of infection, urine culture grew E coli and Klebsiella Blood Cx x2 sets NGTD Fungal Cx NGTD Drug screen negative Suspect sepsis secondary to pneumonia, UTI. In ER given meropenem, vancomycin, 2 L NSS Was admitted to the ICU, Was on Cefepime (transitioned to Rocephin) and azithromycin and Caspofungin. Caspofungin d/c Also on pressors for BP support as well as hydrocortisone. Pressors have since been weaned off, off steroids Was on hiFlo oxygen, wean as tolerated Pulmonology consulted, appreciate recs - transitioned to PO prednisone, now course finished, currently on RA 12/25 Patient recovering well from initial diagnosis of pneumonia, septic shock However over the weekend, developed fever episodes Tested positive for COVID-19, chest x-ray showing new right-sided pneumonia Fortunately remaining stable overall No requirement for supplemental O2 On remdesivir day #3 Labs okay Repeat cultures negative On heparin SC twice daily for DVT prophylaxis Continue to monitor closely Left-sided headache Not improving with Fioricet From COVID-19 infection? From left posterior neck pain? Toradol 30 mg IV given Ofirmev 1 g IV given Not much improvement, ordered oxycodone 5 mg 1 dose Monitor closely Acute metabolic Encephalopathy Pt now confused Likely in setting of above. Delirium precautions. Frequent reorientation, avoid sedating medications Continue to monitor 12/10- urgent head CT ordered, no stroke but concern for demyelinating disease. MRI brain ordered wo contrast due to pt's ROBINSON/CKD, Neurology consulted, appreciate recs. 12/11- pt with noted stent on KUB, cannot be cleared for MRI. Discussed with Neurology Dr Chaney who states that the MRI is needed and should either discuss comfort measures/palliative care with family or have pt transferred for further neurological evaluation. Per nursing, a family member will be coming in later today and pt's case and status will be discussed then. 12/12 - pt is now awake and talkative but does not really have eye contact , prefers looking to the side. able to answer simple questions but not able to hold meaningful conversation. discussed w/ Dr. Chaney - and CT had obtained. Also updated and discussed with pt's brother at the bedside. 12/13 awake and able to answers simple questions - but still confused and not able to have meaningful conversation. Required zyprexa overnight, in restraints this AM. 12/14 awake alert, but still confused, sitting in chair, no restraints at this time 12/16 awake alert - mental status overall seems much improved 12/18 mental status seems back to baseline 12/21 resolved Acute kidney injury Metabolic acidosis History of nephrectomy Cr: 2.2 on admission ABG pH of 7.21, HCO3 of 8, pCO2 of 19. AG of 9 at that time. Recent ROBINSON end of 10/2023 with Cr: 1.6 on 12/03 and 1.7 on 11/21. Prior baseline Cr: 1.0-1.2 IVF in ER. Did have CTA with contrast in ER Monitor renal function Nephrology consulted, appreciate recs -was on bicarb drip, since discontinued -Cr now at baseline Continue to monitor 12/21 resolved Bradycardia Episodes on 12/09 in setting of morphine d/c morphine, consider alternative nonnarcotic for pain management Continue to monitor on telemetry Stable/resolved at this time Acute on chronic Anemia Hgb below 7 on 12/08 Baseline of 7-8 Required 1 unit of packed RBCs Monitor hemoglobin closely FOBT negative Protein calorie malnutrition Aspiration S/P bypass BMI: 14 On TPN 4 days a week at home Nutrition consult, speech consult Then was NPO due to aspiration TPN re-started on 12/07 Has been restarted 12/13 Pt pulled out her Saab which was used for TPN, gen. surg. consulted 12/14 pt has now diet, but poor oral intake 12/15 declining TPN/PPN 12/16 she is trying to improve her PO intake 12/17 today she is ok with PPN 12/18 discussed again poss. TPN/ PICC access - at this time pt does not wish to have that 12/19 Appetite improving, requesting to liberalize diet, changed to regular diet to improve nutrition Patient verbalized desire to have PPN discontinued soon, especially upon discharge 12/25 appetite continues to improve Continue with regular diet Depression with anxiety: History Bipolar disorder On home buspirone, duloxetine, olanzapine H/O migraine Denies current [place] Tobacco use Smokes 1/2ppd Smoking cessation encouraged DVT Prophylaxis: Heparin SQ Disposition Anticipate discharge to rehab when medically stable, completed remdesivir course plan of care discussed with patient in detail and at length all questions answered she is understanding, agreeable, comfortable with the plan of care Admission and Anticipated Discharge Date Admission Date: December 06, 2023 Subjective Follow-up for COVID-19 pneumonia, etc. Seen resting in bed, sitting up, not in distress Reports persistent left-sided headache, associated with left posterior neck stiffness/pain, worse with neck movement to the sides Reports breathing is improved, no shortness of breath, less cough No fevers or chills Appetite is good No other new symptom Review of Systems Review of Systems: all noted and negative except for above Physical Exam Physical Exam: General- oriented x 3, not in distress, speaks in sentences with no effort or accessory muscle use Eyes- anicteric Neck- no JVD Positive mild tenderness on the left posterior neck region Lungs- Mild rhonchi right base Clear on the left Heart- normal rate, regular rhythm; no murmurs Abdomen- normal bowel sounds, nondistended, soft, nontender Extremities- no pretibial edema, no calf tenderness Neuro- alert, oriented x 3; no gross focal neurologic deficits Skin- warm & dry Results & Data Results & Data Vital Signs (Past 12 Hours) Vital Signs Temp Pulse Pulse Resp BP BP Pulse Ox 12/26/23 15:23 36.3 C L 102 H 18 120/78 97 12/26/23 14:26 98 H 12/26/23 12:28 36.9 C 78 18 143/76 H 96 12/26/23 08:49 36.6 C 78 16 113/69 97 12/26/23 07:10 83 12/26/23 03:31 36.5 C 73 16 112/68 96 O2 Del Method 12/26/23 15:23 Room Air 12/26/23 14:26 12/26/23 12:28 Room Air 12/26/23 08:49 Room Air 12/26/23 07:10 12/26/23 03:31 Room Air all noted and reviewed including below
[2023-12-26] MEDS: BACLOFEN 10 MG TAB PO PRN (18:18)
[2023-12-27 07:57] LABS: Basophils # (auto) 0.07 K/uL (0.00-0.20); Basophils % (auto) 1.2 %; Eosinophils # (auto) 0.39 K/uL (0.00-0.50); Eosinophils % (auto) 6.7 %; Hematocrit (blood only) 27.6 % (37.0-47.0); Hemoglobin 8.4 g/dl (12.0-16.0); Immature Granulocytes # (auto) 0.01 K/uL (0.01-0.20); Immature Granulocytes % (auto) 0.2 %; Lymphocytes # (auto) 2.33 K/uL (1.20-3.40); Mean Corpuscular Hemoglobin 29.6 pg (25.0-34.0); Mean Corpuscular Hgb Conc 30.4 g/dL (32.0-36.0); Mean Corpuscular Volume 97.2 fL (80.0-100.0); Mean Platelet Volume 12.6 fL (9.4-12.4); Monocytes # (auto) 0.31 K/uL (0.11-0.59); Monocytes % (auto) 5.3 %; Neutrophils # (auto) 2.71 K/uL (1.40-6.50); Neutrophils % (auto) 46.6 %; Platelet Count 180 K/uL (130-400); RDW Coefficient of Variation 17.3 % (11.5-14.5); RDW Standard Deviation 61.5 fL (36.4-46.3); Red Blood Count 2.84 M/uL (4.20-5.40); White Blood Count 5.82 K/ul (4.8-10.8)
[2023-12-27 08:18] LABS: Albumin Globulin Ratio 1.1 (0.9-2); Albumin Level 2.7 gm/dl (3.4-5.0); BUN Creatinine Ratio 28.9 (10-20); Bilirubin,Total 0.2 mg/dl (0.2-1.0); Calcium 7.8 mg/dl (8.6-10.3); Creatinine Clr Calc Pharmacy 31.8 ml/min; Est GFR (African American) 56.3 ml/min; Est GFR (Non-African American) 48.6 ml/min; Globulin 2.4 gm/dl (2.5-4.0); Potassium 5.2 mmol/L (3.5-5.1); Total Protein 5.1 gm/dl (6.0-8.3)
--- NOTE | 2023-12-27 10:10 | Hospitalist Progress Note ---
Date of Service December 27, 2023 Assessment & Plan (1) Protein calorie malnutrition: (2) History of nephrectomy: (3) Pneumonia: (4) Septic shock: (5) Acidosis: (6) Leukocytosis: (7) Acute hypoxemic respiratory failure: Plan 58 year old female with PMHx significant for chronic malabsorption syndrome post bypass, severe protein calorie malnutrition on TPN, iron deficiency anemia, copper deficiency, h/o right nephrectomy in 2022, bipolar disorder, anxiety, depression, tobacco use, migraine headache, nonspecific white matter changes, myelopathy who presented to the ER with multiple medical complaints including SOB, dry mouth and speech changes. Septic Shock Pneumonia Complicated UTI Acute hypoxic respiratory Failure Upon arrival to ER patient noted to be hypotensive and hypoxic in the 70's. In ER afebrile, P: 94, R: 30, BP: 87/56, 78% on RA CTA Chest: No pulmonary embolus. Groundglass opacities compatible with pneumonia and/or aspiration. CT Head, CTA Head & neck: unremarkable WBC: 36.7. Lactate: 1.6, procalcitonin: 4.5 Was on 10L nonrebreather with O2 sat low 90's UA was suggestive of infection, Urine culture grew E coli and Klebsiella Blood Cx x2 sets NGTD Fungal Cx NGTD Drug screen negative Suspect sepsis secondary to pneumonia, UTI. In ER given meropenem, vancomycin, 2 L NSS Was admitted to the ICU, Was on Cefepime (transitioned to Rocephin) and azithromycin and Caspofungin. Caspofungin later discontinued Was also on pressors for BP support as well as hydrocortisone which had been weaned off Also required HFNC oxygen supplementation which had been weaned off and currently on room air However over the weekend 12/21-12/22, developed fever episodes Tested positive for COVID-19, Chest x-ray showing new right-sided pneumonia Not currently on oxygen Currently on IV remdesivir On heparin SC twice daily for DVT prophylaxis Headache H/O migraine From COVID-19 infection? From left posterior neck pain? Seems controlled on currently regimen Acute metabolic Encephalopathy Delirium precautions. Frequent reorientation, avoid sedating medications Continue to monitor Head CT ordered, no stroke but concern for demyelinating disease. MRI brain ordered wo contrast due to pt's ROBINSON/CKD, 12/11- pt with noted stent on KUB, cannot be cleared for MRI. AMS appear resolved Monitor Acute kidney injury Metabolic acidosis History of nephrectomy Cr: 2.2 on admission ABG pH of 7.21, HCO3 of 8, pCO2 of 19. AG of 9 at that time. Recent ROBINSON end of 10/2023 with Cr: 1.6 on 12/03 and 1.7 on 11/21. Prior baseline Cr: 1.0-1.2 IVF in ER. Did have CTA with contrast in ER Monitor renal function Was managed by Adjunct Faculty ROBINSON resolved Cr is 1.2 today Bradycardia Episodes on 12/09 in setting of morphine Morphine was discontinued Consider alternative nonnarcotic for pain management Continue to monitor on telemetry Resolved Acute on chronic Anemia Hgb below 7 on 12/08 Baseline of 7-8 Required 1 unit of packed RBCs Hb stable FOBT negative Protein calorie malnutrition Aspiration S/P bypass BMI: 15 On TPN 4 days a week at home Nutrition consult, speech consult Then was NPO due to aspiration TPN was restarted. However, patient pulled out her Saab for her TPN on 12/13 Gen surg was consulted. However, patient has been declining PPN/TPN Reports she is tolerating diet well Will reassess home TPN later Depression with anxiety: History Bipolar disorder On home buspirone, duloxetine, olanzapine Tobacco use Smokes 1/2ppd Smoking cessation encouraged DVT Prophylaxis: Heparin SQ Disposition Anticipate discharge to rehab when medically stable I spent a total of 50 minutes coordinating, documenting and providing care for this patient excluding time spent in performance of separately billed services Admission and Anticipated Discharge Date Admission Date: December 06, 2023 Subjective Patient seen and examined Reports vertigo Stated headache is improved and neck pain resolved with the baclofen Reported diarrhea and nausea yesterday but none so far today Denied cough, chest pain or SOB Denied any other complaints on ROS Physical Exam Constitutional: + thin; no acute distress Eyes: PERRL, conjunctivae normal, anicteric sclerae ENMT: external ear and nose normal, oropharynx normal Respiratory: normal respiratory effort, lungs clear to auscultation Cardiovascular: Rate/Rhythm: regular rate and regular rhythm Gastrointestinal (Abdomen): normal bowel sounds, soft, nontender, no hepatosplenomegaly Musculoskeletal: No pedal edema Neurologic: PERRL, EOMI, accommodation nl, no face palsy, no dysarthria Psychiatric: A+Ox3, euthymic affect Results & Data Results & Data Vital Signs (Past 12 Hours) Vital Signs Temp Pulse Pulse Resp BP Pulse Ox O2 Del Method 12/27/23 08:45 36.6 C 84 18 125/75 95 Room Air 12/27/23 08:37 77 12/27/23 08:27 Room Air 12/27/23 03:15 36.5 C 76 16 104/71 95 Room Air 12/27/23 00:12 84 12/26/23 23:46 36.9 C 76 16 104/63 95 Room Air Laboratory Results Abnormal lab results 12/27/23 Range/Units 07:30 RBC 2.84 L (4.20-5.40) M/uL Hgb 8.4 L (12.0-16.0) g/dl Hct 27.6 L (37.0-47.0) % MCHC 30.4 L (32.0-36.0) g/dL RDW Std Deviation 61.5 H (36.4-46.3) fL RDW Coeff of Mike 17.3 H (11.5-14.5) % MPV 12.6 H (9.4-12.4) fL Potassium 5.2 H (3.5-5.1) mmol/L Chloride 116 H (98-107) mmol/L Carbon Dioxide 19 L (21-32) mmol/L BUN 35 H (6-23) mg/dl Creatinine 1.21 H (0.6-1.2) mg/dl BUN/Creatinine Ratio 28.9 H (10-20) Calcium 7.8 L (8.6-10.3) mg/dl Total Protein 5.1 L (6.0-8.3) gm/dl Albumin 2.7 L (3.4-5.0) gm/dl Globulin 2.4 L (2.5-4.0) gm/dl
[2023-12-28 08:40] LABS: Basophils # (auto) 0.07 K/uL (0.00-0.20); Basophils % (auto) 1.3 %; Eosinophils # (auto) 0.38 K/uL (0.00-0.50); Eosinophils % (auto) 7.1 %; Hemoglobin 9.3 g/dl (12.0-16.0); Immature Granulocytes # (auto) 0.01 K/uL (0.01-0.20); Immature Granulocytes % (auto) 0.2 %; Lymphocytes # (auto) 2.04 K/uL (1.20-3.40); Mean Corpuscular Hemoglobin 29.1 pg (25.0-34.0); Mean Corpuscular Volume 96.9 fL (80.0-100.0); Mean Platelet Volume 12.4 fL (9.4-12.4); Monocytes # (auto) 0.24 K/uL (0.11-0.59); Monocytes % (auto) 4.5 %; Neutrophils # (auto) 2.63 K/uL (1.40-6.50); Neutrophils % (auto) 48.9 %; Platelet Count 186 K/uL (130-400); RDW Coefficient of Variation 17.2 % (11.5-14.5); RDW Standard Deviation 61.4 fL (36.4-46.3); White Blood Count 5.37 K/ul (4.8-10.8)
[2023-12-28 08:41] LABS: Albumin Globulin Ratio 1.1 (0.9-2); Albumin Level 2.9 gm/dl (3.4-5.0); BUN Creatinine Ratio 36.7 (10-20); Bilirubin,Total 0.2 mg/dl (0.2-1.0); Creatinine Clr Calc Pharmacy 35.4 ml/min; Est GFR (African American) 63.9 ml/min; Est GFR (Non-African American) 55.1 ml/min; Globulin 2.7 gm/dl (2.5-4.0); Potassium 5.2 mmol/L (3.5-5.1); Total Protein 5.6 gm/dl (6.0-8.3)
[2023-12-28] MEDS: SUMAtriptan succinate 50 MG TAB PO PRN (09:59)
[2023-12-28] MEDS: MECLIZINE HCL 25 MG TAB PO STA (09:59)
--- NOTE | 2023-12-28 10:46 | Hospitalist Progress Note ---
Date of Service December 28, 2023 Assessment & Plan (1) Protein calorie malnutrition: (2) History of nephrectomy: (3) Pneumonia: (4) Septic shock: (5) Acidosis: (6) Leukocytosis: (7) Acute hypoxemic respiratory failure: Plan 58 year old female with PMHx significant for chronic malabsorption syndrome post bypass, severe protein calorie malnutrition on TPN, iron deficiency anemia, copper deficiency, h/o right nephrectomy in 2022, bipolar disorder, anxiety, depression, tobacco use, migraine headache, nonspecific white matter changes, myelopathy who presented to the ER with multiple medical complaints including SOB, dry mouth and speech changes. Septic Shock Pneumonia Complicated UTI Acute hypoxic respiratory Failure Upon arrival to ER patient noted to be hypotensive and hypoxic in the 70's. In ER afebrile, P: 94, R: 30, BP: 87/56, 78% on RA CTA Chest: No pulmonary embolus. Groundglass opacities compatible with pneumonia and/or aspiration. CT Head, CTA Head & neck: unremarkable WBC: 36.7. Lactate: 1.6, procalcitonin: 4.5 Was on 10L nonrebreather with O2 sat low 90's UA was suggestive of infection, Urine culture grew E coli and Klebsiella Blood Cx x2 sets NGTD Fungal Cx NGTD Drug screen negative Suspect sepsis secondary to pneumonia, UTI. In ER given meropenem, vancomycin, 2 L NSS Was admitted to the ICU, Was on Cefepime (transitioned to Rocephin) and azithromycin and Caspofungin. Caspofungin later discontinued Was also on pressors for BP support as well as hydrocortisone which had been weaned off Also required HFNC oxygen supplementation which had been weaned off and currently on room air However over the weekend 12/21-12/22, developed fever episodes Tested positive for COVID-19, Chest x-ray showing new right-sided pneumonia Not currently on oxygen Currently on IV remdesivir On heparin SC twice daily for DVT prophylaxis Headache H/O migraine From COVID-19 infection? From left posterior neck pain? Start home imitrex prn Acute metabolic Encephalopathy Delirium precautions. Frequent reorientation, avoid sedating medications Continue to monitor Head CT ordered, no stroke but concern for demyelinating disease. MRI brain ordered wo contrast due to pt's ROBINSON/CKD, 12/11- pt with noted stent on KUB, cannot be cleared for MRI. AMS appear resolved Monitor Acute kidney injury Metabolic acidosis History of nephrectomy Cr: 2.2 on admission ABG pH of 7.21, HCO3 of 8, pCO2 of 19. AG of 9 at that time. Recent ROBINSON end of 10/2023 with Cr: 1.6 on 12/03 and 1.7 on 11/21. Prior baseline Cr: 1.0-1.2 IVF in ER. Did have CTA with contrast in ER Monitor renal function Was managed by Pharmacovigilance Safety Expert ROBINSON resolved Cr is 1.09 today Bradycardia Episodes on 12/09 in setting of morphine Morphine was discontinued Consider alternative nonnarcotic for pain management Continue to monitor on telemetry Resolved Acute on chronic Anemia Hgb below 7 on 12/08 Baseline of 7-8 Required 1 unit of packed RBCs Hb stable FOBT negative Protein calorie malnutrition Aspiration S/P bypass BMI: 15 On TPN 4 days a week at home Nutrition consult, speech consult Then was NPO due to aspiration TPN was restarted. However, patient pulled out her Saab for her TPN on 12/13 Gen surg was consulted. Reports she is tolerating diet well However, patient is till declining PPN/TPN Depression with anxiety: History Bipolar disorder On home buspirone, duloxetine, olanzapine Tobacco use Smokes 1/2ppd Smoking cessation encouraged DVT Prophylaxis: Heparin SQ Disposition Plan to dc to [facility] I spent a total of 40 minutes coordinating, documenting and providing care for this patient excluding time spent in performance of separately billed services Admission and Anticipated Discharge Date Admission Date: December 06, 2023 Subjective Patient seen and examined Reports migraine headache and vertigo Denied other complaints Physical Exam Constitutional: + thin; no acute distress Eyes: PERRL, conjunctivae normal, anicteric sclerae ENMT: external ear and nose normal, oropharynx normal Respiratory: normal respiratory effort, lungs clear to auscultation Cardiovascular: Rate/Rhythm: regular rate and regular rhythm S1 S2 Gastrointestinal (Abdomen): normal bowel sounds, soft, nontender, no hepatosplenomegaly Musculoskeletal: No pedal edema Neurologic: PERRL, EOMI, accommodation nl, no face palsy, no dysarthria Psychiatric: A+Ox3, euthymic affect Results & Data Results & Data Vital Signs (Past 12 Hours) Vital Signs Temp Pulse Pulse Resp BP Pulse Ox O2 Del Method 12/28/23 10:12 66 07/04/24 08:54 36.4 C L 64 16 123/77 97 Room Air 12/28/23 07:19 Room Air 12/28/23 03:42 36.3 C L 69 18 131/73 98 Room Air 12/27/23 23:59 75 12/27/23 23:02 36.7 C 77 18 118/69 99 Room Air Laboratory Results Abnormal lab results 12/28/23 Range/Units 08:03 RBC 3.20 L (4.20-5.40) M/uL Hgb 9.3 L (12.0-16.0) g/dl Hct 31.0 L (37.0-47.0) % MCHC 30.0 L (32.0-36.0) g/dL RDW Std Deviation 61.4 H (36.4-46.3) fL RDW Coeff of Mike 17.2 H (11.5-14.5) % Potassium 5.2 H (3.5-5.1) mmol/L Chloride 115 H (98-107) mmol/L BUN 40 H (6-23) mg/dl BUN/Creatinine Ratio 36.7 H (10-20) Glucose 104 H (70-99(Fasting)) mg/dl Calcium 8.0 L (8.6-10.3) mg/dl Total Protein 5.6 L (6.0-8.3) gm/dl Albumin 2.9 L (3.4-5.0) gm/dl
[2023-12-28] MEDS: diphenhydrAMINE Capsule 25 MG CAP PO ONE (12:27)
[2023-12-29 08:01] LABS: Basophils # (auto) 0.08 K/uL (0.00-0.20); Basophils % (auto) 1.5 %; Eosinophils # (auto) 0.42 K/uL (0.00-0.50); Eosinophils % (auto) 7.9 %; Hematocrit (blood only) 27.1 % (37.0-47.0); Hemoglobin 8.2 g/dl (12.0-16.0); Immature Granulocytes # (auto) 0.01 K/uL (0.01-0.20); Immature Granulocytes % (auto) 0.2 %; Lymphocytes # (auto) 2.39 K/uL (1.20-3.40); Lymphocytes % (auto) 44.7 %; Mean Corpuscular Hemoglobin 29.2 pg (25.0-34.0); Mean Corpuscular Hgb Conc 30.3 g/dL (32.0-36.0); Mean Corpuscular Volume 96.4 fL (80.0-100.0); Mean Platelet Volume 12.9 fL (9.4-12.4); Monocytes % (auto) 5.6 %; Neutrophils # (auto) 2.15 K/uL (1.40-6.50); Neutrophils % (auto) 40.1 %; Platelet Count 184 K/uL (130-400); RDW Standard Deviation 59.4 fL (36.4-46.3); Red Blood Count 2.81 M/uL (4.20-5.40); White Blood Count 5.35 K/ul (4.8-10.8)
--- NOTE | 2023-12-29 09:44 | CT Scan Report ---
CT head/brain wo con CLINICAL HISTORY: Persistent vertigo. Rule out CVA Technique: Contiguous axial CT images of the head were acquired from the base of the skull to the stacey keshawn without intravenous contrast administration. Images were viewed in brain, subdural and bone windo ws. Automated dose lowering techniques and/or adjustment according to patient size were utilized for this exam. Comparison: Comparison is made to CT head 12/13/2023 Findings: The ventricles, basal cisterns, and cerebral sulci are normal. There is no acute intracranial hemorrh age or evidence of acute territorial infarction. Neither mass effect, shift of the midline structures , nor abnormal extra-axial fluid collections are shown. Imaged portions of the paranasal sinuses and mastoid air cells are clear. The orbits appear normal. There are no acute fractures of the calvaria or scalp swelling. Impression: No acute intracranial hemorrhage, no evidence of acute territorial infarction or other acute intracra nial disease process. ACT 112: Negative or not required by law. Electronically signed by: Tyrell Wayne M.D. 12/29/2023 9:43 AM
--- NOTE | 2023-12-29 11:31 | Hospitalist Progress Note ---
Date of Service December 29, 2023 Assessment & Plan (1) Protein calorie malnutrition: (2) History of nephrectomy: (3) Pneumonia: (4) Septic shock: (5) Acidosis: (6) Leukocytosis: (7) Acute hypoxemic respiratory failure: Plan 58 year old female with PMHx significant for chronic malabsorption syndrome post bypass, severe protein calorie malnutrition on TPN, iron deficiency anemia, copper deficiency, h/o right nephrectomy in 2022, bipolar disorder, anxiety, depression, tobacco use, migraine headache, nonspecific white matter changes, myelopathy who presented to the ER with multiple medical complaints including SOB, dry mouth and speech changes. Septic Shock Pneumonia Complicated UTI Acute hypoxic respiratory Failure Upon arrival to ER patient noted to be hypotensive and hypoxic in the 70's. In ER afebrile, P: 94, R: 30, BP: 87/56, 78% on RA CTA Chest: No pulmonary embolus. Groundglass opacities compatible with pneumonia and/or aspiration. CT Head, CTA Head & neck: unremarkable WBC: 36.7. Lactate: 1.6, procalcitonin: 4.5 Was on 10L nonrebreather with O2 sat low 90's UA was suggestive of infection, Urine culture grew E coli and Klebsiella Blood Cx x2 sets NGTD Fungal Cx NGTD Drug screen negative Suspect sepsis secondary to pneumonia, UTI. In ER given meropenem, vancomycin, 2 L NSS Was admitted to the ICU, Was on Cefepime (transitioned to Rocephin) and azithromycin and Caspofungin. Caspofungin later discontinued Was also on pressors for BP support as well as hydrocortisone which had been weaned off Also required HFNC oxygen supplementation which had been weaned off and currently on room air However over the weekend 12/21-12/22, developed fever episodes Tested positive for COVID-19, Chest x-ray showing new right-sided pneumonia Not currently on oxygen Completed IV remdesivir On heparin SC twice daily for DVT prophylaxis Headache H/O migraine From COVID-19 infection? From left posterior neck pain? Continue imitrex prn Acute metabolic Encephalopathy Delirium precautions. Frequent reorientation, avoid sedating medications Continue to monitor Head CT ordered, no stroke but concern for demyelinating disease. MRI brain ordered wo contrast due to pt's ROBINSON/CKD, 12/11- pt with noted stent on KUB, cannot be cleared for MRI. AMS resolved CT head repeated due to persistent vertigo did not show acute abnormalities Acute kidney injury Metabolic acidosis History of nephrectomy Cr: 2.2 on admission ABG pH of 7.21, HCO3 of 8, pCO2 of 19. AG of 9 at that time. Recent ROBINSON end of 10/2023 with Cr: 1.6 on 12/03 and 1.7 on 11/21. Prior baseline Cr: 1.0-1.2 IVF in ER. Did have CTA with contrast in ER Monitor renal function Was managed by Systems Software Designer ROBINSON resolved Cr is 1.09 today Bradycardia Episodes on 12/09 in setting of morphine Morphine was discontinued Consider alternative nonnarcotic for pain management Continue to monitor on telemetry Resolved Acute on chronic Anemia Hgb below 7 on 12/08 Baseline of 7-8 Required 1 unit of packed RBCs Hb stable FOBT negative Protein calorie malnutrition Aspiration S/P bypass BMI: 15 On TPN 4 days a week at home Nutrition consult, speech consult Then was NPO due to aspiration TPN was restarted. However, patient pulled out her Saab for her TPN on 12/13 Gen surg was consulted. Reports she is tolerating diet well However, patient is till declining PPN/TPN Depression with anxiety: History Bipolar disorder On home buspirone, duloxetine, olanzapine Tobacco use Smokes 1/2ppd Smoking cessation encouraged DVT Prophylaxis: Heparin SQ Disposition Patient is ready for dc. CM reports [facility] does not have isolation bed today. They will let us know if they have bed tomorrow I spent a total of 40 minutes coordinating, documenting and providing care for this patient excluding time spent in performance of separately billed services Admission and Anticipated Discharge Date Admission Date: December 06, 2023 Subjective Patient seen and examined Reports migraine headache which improves with imitres Still has vertigo Denied cough, chest pain, SOB today Denied other complaints Physical Exam Constitutional: + thin; no acute distress Eyes: PERRL, conjunctivae normal, anicteric sclerae ENMT: external ear and nose normal, oropharynx normal Respiratory: normal respiratory effort, lungs clear to auscultation Cardiovascular: Rate/Rhythm: regular rate and regular rhythm S1 S2 Gastrointestinal (Abdomen): normal bowel sounds, soft, nontender, no hepatosplenomegaly Neurologic: PERRL, EOMI, accommodation nl, no face palsy, no dysarthria Psychiatric: A+Ox3, euthymic affect Results & Data Results & Data Vital Signs (Past 12 Hours) Vital Signs Temp Pulse Pulse Resp BP Pulse Ox O2 Del Method 12/29/23 10:47 36.5 C 79 18 151/78 H 98 Room Air 12/29/23 08:47 36.9 C 73 18 121/73 97 Room Air 12/29/23 08:10 83 12/29/23 07:00 52 L 12/29/23 04:11 36.9 C 77 20 120/71 99 Room Air 12/29/23 02:50 Room Air 12/29/23 00:51 36.9 C 78 20 142/90 H 97 Room Air 12/28/23 23:59 98 H Laboratory Results Abnormal lab results 12/29/23 Range/Units 07:03 RBC 2.81 L (4.20-5.40) M/uL Hgb 8.2 L (12.0-16.0) g/dl Hct 27.1 L (37.0-47.0) % MCHC 30.3 L (32.0-36.0) g/dL RDW Std Deviation 59.4 H (36.4-46.3) fL RDW Coeff of Mike 17.0 H (11.5-14.5) % MPV 12.9 H (9.4-12.4) fL
[2023-12-29] MEDS: MECLIZINE HCL 25 MG TAB PO PRN (12:50)
[2023-12-29] MEDS: ACETAMINOPHEN 325 MG TAB PO PRN (20:59)
--- NOTE | 2023-12-30 11:43 | Hospitalist Progress Note ---
Date of Service December 30, 2023 Assessment & Plan Admission and Anticipated Discharge Date Admission Date: December 06, 2023 Results & Data Results & Data Vital Signs (Past 12 Hours) Vital Signs Temp Pulse Pulse Resp BP Pulse Ox O2 Del Method 12/30/23 11:19 36.9 C 80 18 119/74 98 Room Air 12/30/23 07:37 78 12/30/23 07:28 36.9 C 62 16 113/68 97 Room Air 12/30/23 03:28 36.8 C 77 18 133/77 97 Room Air
--- NOTE | 2023-12-30 12:31 | Discharge Summary ---
Date of Service December 30, 2023 Admission HPI Per Admitting Provider Patient is 58 year old female with PMH chronic malabsorption syndrome post bypass, severe protein calorie malnutrition on TPN, iron deficiency anemia, copper deficiency, h/o right nephrectomy in 2022, bipolar disorder, anxiety, depression, tobacco use, migraine headache, nonspecific white matter changes, myelopathy and others listed below presented to ER with multiple medical complaints including SOB, dry mouth and speech changes. History obtained from patient, patient's friend and outpatient and inpatient chart review. Friend states she picked patient up today and noted she seemed to have some confusion and slurred speech and seemed SOB so brought patient to ER. Upon arrival to ER it is reported patient needed assistance getting out of car and was noted to be hypotensive and hypoxic in 70's. It is reported limited history from patient initially however since being on 10L via oxymask and receiving IVF she has become more alert. Currently patient alert and oriented and states several days started ago with bilateral ear pressure. Denies cough, rhinorrhea, SOB or CP. Denies known fever or chills. She doesn't think she has had any choking. Patient reports today she felt confused and her mouth felt very dry and she had trouble talking because her mouth was so dry. She also reports her vision felt blurry. She doesn't think she had syncopal episode. She reports limited oral intake. Has chronic decreased appetite. Is on TPN 4 nights a week. Her friend did not notice any facial drooping today. Patient denies any extremity weakness. Patient reports past week having lower abdominal pressure and dysuria. Reports ongoing right sided abdominal pain since her nephrectomy. SBP's chronically in 90's per patient report. States bowels always loose and incontinent. Patient denies vomiting however ER nurse noted dried emesis around patient's mouth upon ER arrival. Nurse also noted brown loose stool. +Hemoccult positive. Denies dizziness, neck pain, CP, SOB, cough, hemopytsis, sore throat, ear discharge, extremity edema, rashes, hematuria. Outpatient chart review: Outpatient telemedicine nutrition visit on 12/05/23 Outpatient urology visit with Dr Almonte on 12/04/23 for urinary incontinence. Was prescribed Vesicare however patient has not started yet. 12/04/23 had PICC line dressing change and nurse note reported some erythema around site without noted discharge History hospitalization at [facility] 09/20/23-10/10/23 for malnutrition/failure to thrive, multifocal pneumonia, ROBINSON. Admission Exam Per Admitting Provider GENERAL: Alert and oriented x3. NAD, on RA. HEENT: No pallor, no icterus. Pupils equal, round and reactive to light. Oral mucosa moist. NECK: No JVD, no neck masses. HEART: S1 and S2 heard. Regular rate and rhythm. No murmur, no gallop. RESPIRATORY SYSTEM: Normal AP diameter. No accessory muscle use. No wheezing, no crackles. ABDOMEN: Soft, bowel sounds present, nontender, no distention. CENTRAL NERVOUS SYSTEM: No facial droop. Speech is clear. Obeys simple commands. Moves extremities. EXTREMITIES: No edema, no erythema seen. Principal Diagnosis Septic shock Pneumonia Complicated Urinary Tract infection Acute respiratory failure with hypoxia Metabolic encephalopathy Acute kidney injury COVID 19 infection Malnutrition Discharge Exam Constitutional + thin; no acute distress Eyes PERRL, conjunctivae normal, anicteric sclerae ENMT external ear and nose normal, oropharynx normal Respiratory normal respiratory effort, lungs clear to auscultation Cardiovascular Rate/Rhythm: regular rate and regular rhythm S1 S2 Gastrointestinal (Abdomen) normal bowel sounds, soft, nontender, no hepatosplenomegaly Musculoskeletal No pedal edema Neurologic PERRL, EOMI, accommodation nl, no face palsy, no dysarthria Psychiatric A+Ox3, euthymic affect Discharge Data Allergies Allergy/AdvReac Type Severity Reaction Status Date / Time amoxicillin Allergy Severe Anaphylaxis Verified 12/06/23 15:52 Penicillins Allergy Severe Anaphylaxis Verified 12/06/23 15:52 Sulfa (Sulfonamide Allergy Severe Anaphylaxis Verified 12/05/22 15:37 Antibiotics) ragweed pollen Allergy Intermediate swelling Verified 12/05/22 15:37 aspirin AdvReac Unknown No an Verified 12/05/22 15:37 allergy- cannot take post-bypass surgery Consultations 12/06/23 15:34 ED Decision to Admit Stat 12/06/23 17:00 Consult Assurance Senior Manager Routine Consult Nephrology Routine 12/11/23 08:06 Consult Pulmonology Routine 12/11/23 11:33 Consult Neurology Routine 12/12/23 22:08 Consult Palliative Care Routine 12/14/23 12:30 Consult General Surgery Routine Ordered Studies 12/06/23 13:22 CT for pulmonary embolism PE [CT angio chest PE protocol] Stat CT head/brain wo con Stat CTA head w con [CT angio head w con] Stat CTA neck with con [CT angio neck with con] Stat 12/11/23 09:22 CT head/brain wo con Urgent 12/13/23 11:12 CT head/brain wo con Stat 12/29/23 08:13 CT head/brain wo con Stat Hospital Course (1) Protein calorie malnutrition: (2) History of nephrectomy: (3) Pneumonia: (4) Septic shock: (5) Acidosis: (6) Leukocytosis: (7) Acute hypoxemic respiratory failure: Plan 58 year old female with PMHx significant for chronic malabsorption syndrome post bypass, severe protein calorie malnutrition on TPN, iron deficiency anemia, copper deficiency, h/o right nephrectomy in 2022, bipolar disorder, anxiety, depression, tobacco use, migraine headache, nonspecific white matter changes, myelopathy who presented to the ER with multiple medical complaints including SOB, dry mouth and speech changes. Septic Shock Pneumonia Complicated UTI Acute hypoxic respiratory Failure Upon arrival to ER patient noted to be hypotensive and hypoxic in the 70's. In ER afebrile, P: 94, R: 30, BP: 87/56, 78% on RA CTA Chest: No pulmonary embolus. Groundglass opacities compatible with pneumonia and/or aspiration. CT Head, CTA Head & neck: unremarkable WBC: 36.7. Lactate: 1.6, procalcitonin: 4.5 Was on 10L nonrebreather with O2 sat low 90's UA was suggestive of infection, Urine culture grew E coli and Klebsiella Blood Cx x2 sets NGTD Fungal Cx NGTD Drug screen negative Suspect sepsis secondary to pneumonia, UTI. In ER given meropenem, vancomycin, 2 L NSS Was admitted to the ICU, Was on Cefepime (transitioned to Rocephin) and azithromycin and Caspofungin. Caspofungin later discontinued Was also on pressors for BP support as well as hydrocortisone which had been weaned off Also required HFNC oxygen supplementation which had been weaned off and currently on room air However over the weekend 12/21-12/22, developed fever episodes Tested positive for COVID-19, Chest x-ray showed new right-sided pneumonia Not currently on oxygen Completed IV remdesivir Headache H/O migraine Continue imitrex prn CT head repeated due to persistent vertigo did not show acute abnormalities Acute metabolic Encephalopathy Head CT ordered, no stroke but concern for demyelinating disease. MRI brain ordered wo contrast due to pt's ROBINSON/CKD, 12/11- pt with noted stent on KUB, cannot be cleared for MRI. AMS resolved Acute kidney injury Metabolic acidosis History of nephrectomy Cr: 2.2 on admission ABG pH of 7.21, HCO3 of 8, pCO2 of 19. AG of 9 at that time. Recent ROBINSON end of 10/2023 with Cr: 1.6 on 12/03 and 1.7 on 11/21. Prior baseline Cr: 1.0-1.2 Got IVF in ER. Did have CTA with contrast in ER Monitor renal function Was managed by Feather Shaper ROBINSON resolved Last Cr is 1.09 Bradycardia Episodes on 12/09 in setting of morphine Morphine was discontinued Consider alternative nonnarcotic for pain management Continue to monitor on telemetry Resolved Acute on chronic Anemia Hgb below 7 on 12/08 Baseline of 7-8 Required 1 unit of packed RBCs Hb stable FOBT negative Protein calorie malnutrition Aspiration S/P bypass BMI: 16 Was on TPN 4 days a week at home Nutrition consult, speech consult Then was NPO due to aspiration TPN was restarted. However, patient pulled out her Saab for her TPN on 12/13 Gen surg was consulted. She declined replacement or continuing PPN/TPN even as of today Depression with anxiety: History Bipolar disorder On home buspirone, duloxetine, olanzapine Tobacco use Smokes 1/2ppd Smoking cessation encouraged Discharged to [facility] for rehab Total Time Total Time Spent Total Time Spent (In Minutes): 40 Total Time Includes: Examination of the Patient, Discharge Planning and Medication Reconciliation Discharge Plan Discharge Items Patient Disposition: Transfer Inpatient Rehab Fac Reason For Visit: ACUTE RESP FAILURE Discharge Diagnosis: Septic shock Pneumonia Complicated Urinary Tract infection Acute respiratory failure with hypoxia Metabolic encephalopathy Acute kidney injury COVID 19 infection Malnutrition Activity: As commented below Activity Comment: Per Physical therapy Non-emergency contact: Primary Care Provider Call non-emergency contact if: you have any medication questions Follow-up/Referrals: Samira Givens DO [Physician] - (you may call to schedule an appointment if you wish to have more permanent access for TPN needs if you wish to continue with peripheral nutrition ) Evelyn Mobley MD [Primary Care Provider] - (Call for appointment Family Medicine [facility] [place] ) Diet: Regular Addtl Attending Provider Instructions: Mrs Hogue You came to the hospital complaining of shortness of breath. You were evaluated and managed for the above listed diagnoses. You are being discharged to [facility] for rehab. Please ensure follow up with your Primary Doctor Pending Studies at Discharge: No Stand-Alone Forms: [facility] Items Patient informed of condition?: Yes DNR: Yes Discharge Level of Care: Acute rehab Communicable Disease: Yes Discharge Prognosis: Stable Lines: None Urinary Catheter: No Medications and DC Order Prescriptions: New meclizine 25 mg Tablet 25 mg PO TID PRN (Reason: dizziness) Qty: 30 0RF Continued rizatriptan 10 mg tablet 10 mg PO DAILY PRN (Reason: Migraines) ergocalciferol (vitamin D2) 50,000 unit Capsule 50,000 unit PO MOWEFR Qty: 0 cyanocobalamin (vitamin B-12) 1,000 mcg/mL Solution 1 dose IM MONTHLY Qty: 0 Rx Instructions: PER PT "DUE ANY TIME". diphenoxylate-atropine [Lomotil] 2.5-0.025 mg Tablet 1 tab PO QID PRN (Reason: Diarrhea) Qty: 0 acetaminophen 500 mg tablet 500 mg PO Q4H PRN (Reason: Pain) vkhhfnwdns-[id number]-[id number] 50-325-40 mg tablet 1 tab PO Q6H PRN (Reason: Pain) sumatriptan succinate 50 mg Tablet 50 mg PO DIRECTED MDD 2 TABS/24 HOURS PRN (Reason: ATTACKS PER [facility]) Rx Instructions: MAX OF 2 TABS PER ATTACK, AND NO MORE THAN 3 X WEEKLY. calcium carbonate [Oyster Shell Calcium 500] 500 mg calcium (1,250 mg) Tablet 500 mg PO BID Rx Instructions: PER PT "NOT REGULARLY". omeprazole 20 mg Capsule,Delayed Release(Dr/Ec) 20 mg PO QAM mirtazapine 45 mg Tablet 45 mg PO HS ondansetron 4 mg Tablet,Disintegrating 4 mg PO Q8H PRN (Reason: NAUSEA/VOMITING) calcitriol 0.25 mcg Capsule 0.25 mcg PO 3XWK Rx Instructions: MON, WED, & FRI AM. duloxetine 60 mg Capsule,Delayed Release(Dr/Ec) 120 mg PO DAILY buspirone 5 mg tablet 5 mg PO BID olanzapine 5 mg tablet,disintegrating 5 mg translingual DAILY pregabalin 25 mg capsule 25 mg PO BID Discontinued alprazolam 0.25 mg tablet 0.25 mg PO HS PRN (Reason: Anxiety) tramadol 50 mg Tablet 50 mg PO Q8H PRN (Reason: Pain) promethazine 25 mg Tablet 25 mg PO Q6H PRN (Reason: NAUSEA/VOMITING) Discharge Orders: Discharge Order (Routine); Ordered 12/30/23 Ordered By: Wilma Hester/Other Patient Handouts: A1C Admission Data Admit Date/Time: 12/06/23 15:46 Attending Provider: Wilma Mayo I. Admit Provider: Mihir Mitchell Primary Care Provider: Evelyn Mobley Other Providers: Mihir Mitchell; Shen Anguiano; Earnest Benedict; Barber Chaney; Germania Cano; Samira Givens; Jovanny Canela Other Interventions: Discharge Summary Assessment (RN) Last Done: 12/30/23 13:03
== END 2023-12-30 17:57 | DRG 871 ==
LOC: ED 13:06 → 1E 15:46 → SUATTDRO 15:46 → 1E 16:32 → 2E 12-11 22:52 → 2N 12-16 21:46
DX: I95.9 Hypotension, unspecified; Z68.1 Body mass index [BMI] 19.9 or less, adult; K91.2 Postsurgical malabsorption, not elsewhere classified; F41.8 Other specified anxiety disorders; R00.1 Bradycardia, unspecified; R65.21 Severe sepsis with septic shock; J18.1 Lobar pneumonia, unspecified organism; G93.41 Metabolic encephalopathy; E43 Unspecified severe protein-calorie malnutrition; F31.9 Bipolar disorder, unspecified; Z66 Do not resuscitate; N17.0 Acute kidney failure with tubular necrosis; Z79.899 Other long term (current) drug therapy; J96.01 Acute respiratory failure with hypoxia; U07.1 COVID-19; J12.82 Pneumonia due to coronavirus disease 2019; F17.210 Nicotine dependence, cigarettes, uncomplicated; Z88.1 Allergy status to other antibiotic agents; J69.0 Pneumonitis due to inhalation of food and vomit; E61.0 Copper deficiency; R04.89 Hemorrhage from other sites in respiratory passages; Z90.5 Acquired absence of kidney; D50.9 Iron deficiency anemia, unspecified; E87.6 Hypokalemia; Z86.16 Personal history of COVID-19; N39.0 Urinary tract infection, site not specified; I25.10 Atherosclerotic heart disease of native coronary artery without angina pectoris; A41.9 Sepsis, unspecified organism; E87.4 Mixed disorder of acid-base balance; Z88.0 Allergy status to penicillin; R32 Unspecified urinary incontinence; Z88.2 Allergy status to sulfonamides